=== PATIENT | female | born 1960 | race Hispanic/Latino ===

== ENCOUNTER 2017-07-25 17:18 | Observation (INO) | payer BC, OTHER ==
--- OUTSIDE RECORDS SUMMARY | 2017-07-25 17:20 | XMS REPORT ---
:1960 [facility] Address [address] [place] [address] Dr. [address] [place] [id number] Care Team Providers Name Role Phone JUDIT ESCALONA Unavailable Unavailable Problems This patient has no known problems. Allergies, Adverse Reactions, Alerts This patient has no known allergies or adverse reactions. Medications This patient has no known medications. Results Test Description Test Time Test Comments Text Results Atomic Results Result Comments POCT-HEMOGLOBIN METER 2016-09-27 06:12:00 Test Item Value Reference Range Comments POC-HEMOGLOBIN METER (JEFFERY) (test 8.6 g/dL 12.0-15.0 TESTED AT [facility] [address] [facility] [id number]) [facility] [id number]
--- OUTSIDE RECORDS SUMMARY | 2017-07-25 17:20 | XMS REPORT | Clinical Summary ---
:1960 Author Organization [facility] Address [address] [place] [address] Phone Care Team Providers Name Role Phone Unavailable Primary Care Provider Unavailable Allergies Active Allergy Reactions Severity Noted Date Comments Morphine Shortness Of Breath, High 06/30/2016 Throat closes, tongue Swelling swelling Latex Rash Low 03/28/2017 Current Medications Prescription Sig. Disp. Refills Start Date End Date Status ibuprofen (ADVIL,MOTRIN) Take 100 mg by Active 100 MG tablet mouth every 6 (six) hours as needed for Fever. pantoprazole (PROTONIX) Take 20 mg by mouth Active 20 MG tablet daily. lactulose (CEPHULAC) 10 Take 10 g by mouth Active gram packet 3 (three) times daily. Active Problems Not on file Encounters Date Type Specialty Care Team Description 03/30/2017 Hospital Encounter Gastroenterology Dre Mayer Cirrhosis of liver MD [place] without ascites, unspecified hepatic cirrhosis type (HCC) (Primary Dx) 03/30/2017 Procedure Pass Gastroenterology 03/30/2017 Surgery GastroenterDre Alvares UPPER ENDOSCOPY MD Russell 03/29/2017 Anesthesia Event Gastroenterology Isaias Main MD 03/28/2017 Hospital Encounter Pre-Admission Testing 09/24/2016 Hospital Encounter GastroenterDre Alvares Cirrhosis of liver MD Russell without ascites, unspecified hepatic cirrhosis type (HCC) (Primary Dx) 09/24/2016 Procedure Pass Gastroenterology 09/24/2016 Surgery GastroenterDre Alvares UPPER ENDOSCOPY MD Russell 09/23/2016 Anesthesia Event Gastroenterology Liban Mustafa MD 09/20/2016 Orders Only Dre Mayer Fatty liver MD Russell (Primary Dx);Alcoholic cirrhosis of liver without ascites (HCC) after 07/24/2016 Social History Tobacco Use Types Packs/Day Years Used Date Never Smoker Smokeless Tobacco: Never Used Alcohol Use Drinks/Week oz/Week Comments No Sex Assigned at Date Recorded Not on file Last Filed Vital Signs Vital Sign Reading Time Taken Blood Pressure 115/61 03/30/2017 9:30 AM [facility] Pulse 70 03/30/2017 9:30 AM [facility] Temperature 36.8 C (98.3 F) 03/30/2017 9:00 AM [facility] Respiratory Rate 16 03/30/2017 9:30 AM [employer] Oxygen Saturation 100% 03/30/2017 9:30 AM [employer] Inhaled Oxygen Concentration - - Weight 114.3 kg (252 lb) 03/30/2017 7:20 AM [facility] Height 160 cm (5' 2.99") 03/30/2017 7:20 AM [facility] Body Mass Index 44.65 03/30/2017 7:20 AM [facility] [facility] [facility] Plan of Treatment Not on file Procedures Procedure Name Priority Date/Time Associated Diagnosis Comments UPPER ENDOSCOPY 03/30/2017 8:00 AM [facility] [facility] Extreme obesity UPPER ENDOSCOPY 09/24/2016 2:00 PM CDT Fatty liver after 07/24/2016 Results REPORT OF PROCEDURE - ENDOSCOPY URL (03/30/2017 8:58 AM)Only the most recent of2 resultswithin the time period is included.POC-Hemoglobin meter (09/24/2016 1:37 PM) Component Value Ref Range POC-Hemoglobin Meter 8.6 (L)Comment: TESTED AT [address] 12.0 - 15.0 g/dL [facility] [address] Specimen Performing Laboratory Blood [facility] [address] [address] after 07/24/2016
[2017-07-25] MEDS ORDERED: NA CHLORIDE 0.9% 500 ML ONE (18:05)
[2017-07-25] MEDS ORDERED: DICYCLOMINE HCL 10 MG CAP ONE (18:05)
[2017-07-25 18:33] LABS: Absolute Lymphocytes (CBC) 0.6 K/uL (0.7-4.9); Absolute Monocytes 0.3 K/uL (0.1-1.3); Absolute Neutrophil 1.1 K/uL (1.8-8.0); Basophils % 0.6 % (0-1.3); Lymphocytes % 28.7 % (15.3-44.8); MCH 23.2 pg (27.0-35.0); MPV 8.6 fL (7.6-11.3); Monocytes % 12.6 % (3.3-12.3); RBC Red Blood Cell Count 3.47 M/uL (3.86-4.86)
[2017-07-25 18:46] LABS: Bicarbonate 28 mEq/L (21-31); Glucose Level 100 mg/dL (65-120); Lipase 44 U/L (22-51); Potassium 3.4 mEq/L (3.6-5.0); Sodium Level 141 mEq/L (135-145)
--- NOTE | 2017-07-25 18:51 | RAD REPORT ---
EXAM DESCRIPTION: RAD - Chest Single View - 07/25/2017 6:21 pm CLINICAL HISTORY: Shortness of breath, possible CHF COMPARISON: April 2017 TECHNIQUE: AP portable chest image was obtained 1809 hours . FINDINGS: Lung volumes are low. Shallow inspiration, under penetrated technique and body habitus fal l accentuate heart, vasculature and lung markings. No cardiomegaly seen. Trachea is midline. Central vasculature and lung markings are mildly prominent. This is mostly the artifact of exam limitations. However, a minimal component of failure or volume overload could be masked. No peripheral consolidati on. No measurable pleural effusion and no pneumothorax. No gross bony abnormality seen. No acute aort ic findings suspected. IMPRESSION: Prominent vasculature and prominent central lung markings are believed to be the affects of body habitus, portable technique and shallow inspiration. Minimal failure or volume overload could be masked in this setting.
[2017-07-25 18:52] LABS: ALT/SGPT 45 IU/L (10-60); AST/SGOT 58 IU/L (10-42); Albumin 3.4 g/dL (3.2-5.5); Alkaline Phosphatase 134 IU/L (42-121); BUN Blood Urea Nitrogen 9 mg/dL (6-20); Bilirubin Direct 0.4 mg/dL (0-0.2); Bilirubin Total 1.8 mg/dL (0.3-1.2); Protein, Total 6.4 g/dL (6.0-8.3)
[2017-07-25 19:11] LABS: Urine Blood NEGATIVE (NEG); Urine Glucose NEGATIVE (NEG); Urine Protein TRACE (NEG); Urine pH 7.5 (5.0-7.0)
--- NOTE | 2017-07-25 19:58 | RAD REPORT ---
EXAM DESCRIPTION: CT - Abdomen Pelvis W Contrast - 07/25/2017 7:40 pm CLINICAL HISTORY: Abdominal pain, anemia, rectal bleeding, history of cirrhosis and pancreatitis COMPARISON: CT study October 2016 TECHNIQUE: Biphasic, helical CT imaging of the abdomen and pelvis was performed following 100 ml non -ionic IV contrast. Oral contrast was given. All CT scans are performed using dose optimization technique as appropriate and may include automated exposure control or mA/KV adjustment according to patient size. FINDINGS: No suspicious findings in the lung bases. No pericardial thickening or effusion. Liver shows a nodular capsular contour. This matches the cirrhosis history. No focal liver lesion velasquez ntifiable. Splenomegaly is present similar to prior imaging. No acute splenic finding. No acute pancr eatitis changes. There is no peripancreatic inflammatory stranding. Prominent veins are seen in the s plenic hilum. Cholecystectomy clips are present. No biliary tree dilatation. Symmetric renal function is seen with no hydronephrosis or suspicious renal mass. No pyelonephritis o r acute renal parenchymal process. No gastric dilatation or gastric wall thickening. No acute large or small bowel process identifiable. There is some minimal nonspecific stranding in the posterior lower pelvic fatty tissues and in the r ight lower quadrant. These findings are not substantially different from comparison. No appendicitis findings. No free air, pneumatosis or free fluid. No hernia, mass or bulky lymphadenopathy. The uri nary bladder is without significant finding. No adrenal abnormality. Uterus and ovaries show no suspi cious findings. There is small ovarian cysts that are similar to the comparison. No suspicious bony findings. IMPRESSION: No bowel obstruction, free air or surgically emergent finding. No acute finding to expla in GI bleeding history. Cirrhotic liver changes are present with splenomegaly. No ascites. The above detailed findings are without significant or suspicious change from October 2016.
--- NOTE | 2017-07-25 20:00 | EDPHYS ---
Physician Documentation [facility] Name: Zenaida Goss Age: 57 yrs Sex: Female : 1960 Arrival Date: 07/25/2017 Time: 17:19 Bed 7 Private MD: Madhu Albarado R ED Physician Homero Terrell HPI: 07/25 18:36 This 57 yrs old Female presents to ER via Ambulatory with complaints of Rectal ps1 Bleeding. 18:36 The patient presents to the emergency department with bleeding from the rectum/anus, ps1 that is moderate. Onset: The symptoms/episode began/occurred 5 day(s) ago. Context: the patient patient had small amount of blood per rectum this week then today she said she had a large amount of BRBPR into toilet today. . Associate signs and symptoms: The patient has no apparent associated signs or symptoms. The patient has experienced similar episodes in the past, a few times. The patient has not recently seen a physician. hx of HÉCTOR, Pt of Dr. Mayer in [facility]. Previous polyps and variceal banding.. Historical: - Allergies: 17:23 Morphine (Anaphylaxis); la1 - PMHx: 17:23 Anemia; Cirrhosis; Pancreatitis; varices; la1 - Immunization history:: Adult Immunizations. - Social history:: Smoking status: Patient/guardian denies using tobacco. ROS: 18:36 MS/Extremity: Negative for injury and deformity, Skin: Negative for injury, rash, and ps1 discoloration, Neuro: Negative for headache, weakness, numbness, tingling, and seizure, Psych: Negative for depression, anxiety, suicide ideation, homicidal ideation, and hallucinations. 18:36 Constitutional: Negative for fever, chills, and weight loss, Eyes: Negative for injury, pain, redness, and discharge, Neck: Negative for injury, pain, and swelling, Respiratory: Negative for shortness of breath, cough, wheezing, and pleuritic chest pain. 18:36 Abdomen/GI: Positive for nausea, abdominal cramps. 18:43 Cardiovascular: Positive for edema, Negative for chest pain. ps1 Exam: 18:36 Constitutional: This is a well developed, well nourished patient who is awake, alert, ps1 and in no acute distress. Head/Face: Normocephalic, atraumatic. Eyes: Pupils equal round and reactive to light, extra-ocular motions intact. Lids and lashes normal. Conjunctiva and sclera are non-icteric and not injected. Chest/axilla: Normal chest wall appearance and motion. Nontender with no deformity. No lesions are appreciated. Respiratory: Lungs have equal breath sounds bilaterally, clear to auscultation and percussion. No rales, rhonchi or wheezes noted. No increased work of breathing, no retractions or nasal flaring. Abdomen/GI: Soft, non-tender, with normal bowel sounds. No distension or tympany. No guarding or rebound. No evidence of tenderness throughout. Skin: Warm, dry with normal turgor. Normal color with no rashes, no lesions, and no evidence of cellulitis. MS/ Extremity: Pulses equal, no cyanosis. Neurovascular intact. Full, normal range of motion. Neuro: Awake and alert, GCS 15, oriented to person, place, time, and situation. Cranial nerves II-XII grossly intact. Sensory grossly intact. Psych: Awake, alert, with orientation to person, place and time. Behavior, mood, and affect are within normal limits. 18:43 Cardiovascular: Rate: normal, Rhythm: regular, Pulses: no pulse deficits are ps1 appreciated, Heart sounds: murmur, systolic, grade 2 over 6, Edema: 3+ edema to level of left ankle and right ankle. 19:57 Abdomen/GI: Rectal exam: rectal tone normal, Stool: guaiac positive, hemorrhoid(s), are vicente not appreciated, mass, is not appreciated, swelling, is not appreciated, tenderness, is not appreciated. Vital Signs: 17:23 BP 135 / 70; Pulse 81; Resp 16; Temp 97.6; Pulse Ox 100% on R/A; Weight 113.4 kg; la1 Height 5 ft. 3 in. (160.02 cm); 20:42 BP 126 / 63; Pulse 85; Resp 18; Temp 97.8; Pulse Ox 99% on R/A; Pain 3/10; tl1 17:23 Body Mass Index 44.29 (113.40 kg, 160.02 cm) la1 MDM: 17:55 Patient medically screened. ps1 18:36 Data reviewed: vital signs, nurses notes. ps1 07/25 17:55 Order name: CBC with Manual Differential ps1 07/25 17:55 Order name: Basic Metabolic Panel; Complete Time: 18:54 [facility] 07/25 17:55 Order name: Creatinine for Radiology; Complete Time: 18:54 [facility] 07/25 17:55 Order name: Hepatic Function; Complete Time: 18:54 [facility] 07/25 17:55 Order name: Lipase; Complete Time: 18:54 [facility] 07/25 17:55 Order name: Urine Microscopic Only [facility] 07/25 17:55 Order name: Troponin (emerg Dept Use Only); Complete Time: 18:54 [facility] 07/25 17:55 Order name: Type And Screen [facility] 07/25 19:06 Order name: Urine Dipstick--Ancillary (enter results); Complete Time: 19:29 em1 07/25 19:57 Order name: BNP [facility] 07/25 19:57 Order name: CBC with Diff; Complete Time: 20:47 [facility] 07/25 19:57 Order name: Ckmb; Complete Time: 20:47 [facility] 07/25 19:57 Order name: CPK; Complete Time: 20:47 [facility] 07/25 17:55 Order name: CT Abd/Pelvis - W/Contrast; Complete Time: 20:47 [facility] 07/25 17:55 Order name: CXR XRAY; Complete Time: 18:54 [facility] 07/25 19:57 Order name: Magnesium; Complete Time: 20:47 [facility] 07/25 19:57 Order name: PT-INR [facility] 07/25 19:57 Order name: Ptt, Activated [facility] 07/25 20:09 Order name: Basic Metabolic Panel [facility] 07/25 20:09 Order name: Basic Metabolic Panel [facility] 07/25 20:09 Order name: CBC with Automated Diff [facility] 07/25 20:09 Order name: CBC with Automated Diff [facility] 07/25 20:48 Order name: AMMONIA [facility] 07/25 17:55 Order name: IV Saline Lock; Complete Time: 20:08 [facility] 07/25 17:55 Order name: Labs collected and sent; Complete Time: 20:08 [facility] 07/25 17:55 Order name: Urine Dipstick-Ancillary (obtain specimen); Complete Time: 18:58 [facility] 07/25 17:55 Order name: EKG - Nurse/Tech; Complete Time: 18:50 [facility] 07/25 19:57 Order name: EKG; Complete Time: 19:58 [facility] 07/25 19:57 Order name: Cardiac monitoring; Complete Time: 20:06 [facility] 07/25 19:57 Order name: O2 Per Protocol; Complete Time: 20:06 [facility] 07/25 19:57 Order name: O2 Sat Monitoring; Complete Time: 20:06 [facility] 07/25 20:09 Order name: Clear Liquid [facility] 07/25 20:09 Order name: CONS Physician Consult [facility] 07/25 20:09 Order name: CONS Physician Consult [facility] 07/25 20:48 Order name: Transfuse vicente EC:51 Rate is 64 beats/min. Rhythm is regular. QRS [place] is Normal. OH interval is normal. QRS ps1 interval is normal. QT interval is normal. No Q waves. T waves are Normal. No ST changes noted. Clinical impression: Normal ECG. Interpreted by me. Administered Medications: 18:10 Drug: Bentyl 20 mg Route: PO; sv 18:10 Drug: NS 0.9% 500 ml Route: IV; Rate: bolus; Site: left antecubital; sv 19:12 Follow up: IV Status: Completed infusion tl1 20:21 Drug: Zofran 4 mg Route: IVP; Infused Over: 2 mins; Site: left antecubital; tl1 20:44 Follow up: Response: No adverse reaction; Marked relief of symptoms; Nausea is decreasedtl1 20:22 Drug: Rocephin - (cefTRIAXone) 1 grams Route: IVPB; Infused Over: 30 mins; Site: left tl1 antecubital; 20:44 Follow up: IV Status: Completed infusion tl1 20:22 Drug: Flagyl 500 mg Volume: 100 ml; Route: IVPB; Rate: 200 ml/hr; Infused Over: 30 tl1 mins; Site: left antecubital; 20:23 Drug: ProTONIX 40 mg Route: IVP; Infused Over: 2 mins; Site: left antecubital; tl1 Disposition: 07/25/17 20:00 Hospitalization ordered by Madhu Albarado for Observation. Preliminary diagnosis are Encounter for screening for lower gastrointestinal disorder, Gastrointestinal hemorrhage, unspecified, Unspecified cirrhosis of liver - ANAYA, Anemia, unspecified, Obesity, unspecified, Hypokalemia. - Bed requested for Telemetry/MedSurg (observation). - Status is Observation. aj - Condition is Stable. - Problem is new. - Symptoms have improved. UTI on Admission? No Signatures: Dispatcher [employer] [facility] StephanyKatherine, RN Kenyatta Fragoso, RN Rere Franz, RN Homero Meraz MD MD cha Attema, Lee, Ann Bearden RN, RN RN tl1 Florian Jewell MD MD ps1 Corrections: (The following items were deleted from the chart) 18:02 18:00 CBC+H.LAB.BRZ ordered. EDPA EDPA 18:44 18:36 Constitutional: Negative for fever, chills, and weight loss, Eyes: Negative for ps1 injury, pain, redness, and discharge, Neck: Negative for injury, pain, and swelling, Cardiovascular: Negative for chest pain, palpitations, and edema, Respiratory: Negative for shortness of breath, cough, wheezing, and pleuritic chest pain, ps1 18:45 18:36 Constitutional: This is a well developed, well nourished patient who is awake, ps1 alert, and in no acute distress. Head/Face: Normocephalic, atraumatic. Eyes: Pupils equal round and reactive to light, extra-ocular motions intact. Lids and lashes normal. Conjunctiva and sclera are non-icteric and not injected. Chest/axilla: Normal chest wall appearance and motion. Nontender with no deformity. No lesions are appreciated. Cardiovascular: Regular rate and rhythm. No gallops, murmurs, or rubs. Normal PMI, no JVD. No pulse deficits. Respiratory: Lungs have equal breath sounds bilaterally, clear to auscultation and percussion. No rales, rhonchi or wheezes noted. No increased work of breathing, no retractions or nasal flaring. Abdomen/GI: Soft, non-tender, with normal bowel sounds. No distension or tympany. No guarding or rebound. No evidence of tenderness throughout. Skin: Warm, dry with normal turgor. Normal color with no rashes, no lesions, and no evidence of cellulitis. MS/ Extremity: Pulses equal, no cyanosis. Neurovascular intact. Full, normal range of motion. Neuro: Awake and alert, GCS 15, oriented to person, place, time, and situation. Cranial nerves II-XII grossly intact. Sensory grossly intact. Psych: Awake, alert, with orientation to person, place and time. Behavior, mood, and affect are within normal limits. ps1
--- NOTE | 2017-07-25 20:00 | ER ---
Nurse's Notes [facility] Name: Zenaida Goss Age: 57 yrs Sex: Female : 1960 Arrival Date: 07/25/2017 Time: 17:19 Bed 7 Private MD: Madhu Albarado R Diagnosis: Encounter for screening for lower gastrointestinal disorder;Gastrointestinal hemorrhage, unspecified;Unspecified cirrhosis of liver-ANAYA;Anemia, unspecified;Obesity, unspecified;Hypokalemia Presentation: 07/25 17:22 Presenting complaint: Patient states: For the last week I have had some bright red la1 blood in my stool but today I had a lot of blood in the toilet and I have anemia so I want to be sure Im not losing too much. Transition of care: patient was not received from another setting of care. Onset of symptoms was July 25, 2017. Initial Sepsis Screen: Does the patient meet any 2 criteria? No. Patient's initial sepsis screen is negative. Does the patient have a suspected source of infection? No. Patient initial sepsis screen negative. Care prior to arrival: None. 17:22 Method Of Arrival: Ambulatory la1 17:22 Acuity: TANK 3 la1 Historical: - Allergies: 17:23 Morphine (Anaphylaxis); la1 - PMHx: 17:23 Anemia; Cirrhosis; Pancreatitis; varices; la1 - Immunization history:: Adult Immunizations. - Social history:: Smoking status: Patient/guardian denies using tobacco. Screenin:00 Abuse screen: Denies threats or abuse. Denies injuries from another. Nutritional sv screening: No deficits noted. Tuberculosis screening: No symptoms or risk factors identified. Fall Risk None identified. Assessment: 18:00 General: Appears in no apparent distress. comfortable, obese, Behavior is calm, sv cooperative, appropriate for age. Pain: Complains of pain in abdomen Pain currently is 5 out of 10 on a pain scale. Quality of pain is described as crampy, Is intermittent. Neuro: Level of Consciousness is awake, alert, obeys commands, Oriented to person, place, time, situation, Moves all extremities. Full function Gait is steady. Respiratory: Respiratory effort is even, unlabored, Respiratory pattern is regular, symmetrical. GI: Abdomen is obese, Reports cramping, rectal bleeding, nausea. Derm: Skin is normal. Vital Signs: 17:23 BP 135 / 70; Pulse 81; Resp 16; Temp 97.6; Pulse Ox 100% on R/A; Weight 113.4 kg; la1 Height 5 ft. 3 in. (160.02 cm); 20:42 BP 126 / 63; Pulse 85; Resp 18; Temp 97.8; Pulse Ox 99% on R/A; Pain 3/10; tl1 17:23 Body Mass Index 44.29 (113.40 kg, 160.02 cm) la1 ED Course: 17:19 Patient arrived in ED. as 17:19 Madhu Albarado MD is Private Physician. as 17:23 Triage completed. la1 17:24 Arm band placed on right wrist. la1 17:44 Florian Jewell MD is Attending Physician. ps1 17:46 Chai Pierre RN is Primary Nurse. sg 18:00 Patient has correct armband on for positive identification. Placed in gown. Bed in low sv position. Call light in reach. Pulse ox on. NIBP on. 18:00 Initial lab(s) drawn, by me, sent to lab. Inserted saline lock: 20 gauge in left sv antecubital area, using aseptic technique. Blood collected. Flushed left antecubital with 5 ml normal saline. 18:02 Katherine Hammond RN is Primary Nurse. sv 18:20 CXR XRAY In Process Unspecified. EDMS 18:58 Urine collected: clean catch specimen, cloudy, steffen colored, EKG done, by ED staff, jb1 reviewed by Florian Jewell MD. 19:09 Attending Physician role handed off by Florian Jewell MD vicente 19:09 Homero Terrell MD is Attending Physician. vicente 19:11 Report given to Ann REYES. sv 19:17 Primary Nurse role handed off by Katherine Hammond RN sv 19:[address] via wheelchair. ka 19:40 CT Abd/Pelvis - W/Contrast In Process Unspecified. EDMS 19:40 CT completed. Patient tolerated procedure well. Patient moved back from CT. ka 19:58 Madhu Albarado MD is Hospitalizing Provider. vicente 20:14 Steffen Millan RN is Primary Nurse. ak1 21:11 Report given to Katherine REYES. aj 21:12 No provider procedures requiring assistance completed. Patient admitted, IV remains in aj place. intact. Administered Medications: 18:10 Drug: Bentyl 20 mg Route: PO; sv 18:10 Drug: NS 0.9% 500 ml Route: IV; Rate: bolus; Site: left antecubital; sv 19:12 Follow up: IV Status: Completed infusion tl1 20:21 Drug: Zofran 4 mg Route: IVP; Infused Over: 2 mins; Site: left antecubital; tl1 20:44 Follow up: Response: No adverse reaction; Marked relief of symptoms; Nausea is decreasedtl1 20:22 Drug: Rocephin - (cefTRIAXone) 1 grams Route: IVPB; Infused Over: 30 mins; Site: left tl1 antecubital; 20:44 Follow up: IV Status: Completed infusion tl1 20:22 Drug: Flagyl 500 mg Volume: 100 ml; Route: IVPB; Rate: 200 ml/hr; Infused Over: 30 tl1 mins; Site: left antecubital; 20:23 Drug: ProTONIX 40 mg Route: IVP; Infused Over: 2 mins; Site: left antecubital; tl1 Outcome: 20:00 Decision to Hospitalize by Provider. vicente 21:12 Admitted to Med/surg accompanied by tech, via wheelchair, room 204, Report called to trinity Murphy RN 21:12 Condition: good 21:12 Instructed on the need for admit, Demonstrated understanding of instructions. 21:21 Patient left the ED. trinity Signatures: Dispatcher [employer] EDDaniel Langston jb1 Katherine Hammond RN RN sv Gay, Steven, RN RN sg Myers, Amanda, RN RN aj Anderson, Corey, MD MD cha Martinez, Amelia as Attema, Lee RN RN nora1 Ann Carrasco RN RN tl1 Steffen Millan RN RN kevin1 Liana Whiting Phillip, MD MD ps1
[2017-07-25] MEDS ORDERED: ACETAMINOPHEN 500 MG TAB PO PRN (20:06)
[2017-07-25] MEDS ORDERED: CEFTRIAXONE/SWI 1gm 1 GM/10 ML SYR ONE (20:15)
[2017-07-25] MEDS ORDERED: PANTOPRAZOLE 40 MG INJ ONE (20:15)
[2017-07-25] MEDS ORDERED: ONDANSETRON 4 MG/2 ML VIAL ONE (20:15)
[2017-07-25] MEDS ORDERED: METRONIDAZOLE 500mg IVPB 500 MG/100 ML BAG IV ONE (20:15)
[2017-07-25 20:26] LABS: Absolute Lymphocytes (CBC) 0.6 K/uL (0.7-4.9); Absolute Monocytes 0.2 K/uL (0.1-1.3); Absolute Neutrophil 1.1 K/uL (1.8-8.0); Basophils % 0.7 % (0-1.3); Eosinophils % 3.2 % (0-4.4); Hematocrit 25.5 % (36.0-45.0); Lymphocytes % 28.8 % (15.3-44.8); MCH 23.1 pg (27.0-35.0); MCV 74.3 fL (80-100); MPV 8.5 fL (7.6-11.3); Monocytes % 12.1 % (3.3-12.3); RBC Red Blood Cell Count 3.43 M/uL (3.86-4.86)
[2017-07-25 20:34] LABS: Magnesium 1.8 mg/dL (1.8-2.5)
[2017-07-25 20:41] LABS: CKMB Creatine Kinase MB 4.7 ng/ml (0.3-4.0)
[2017-07-25] MEDS ORDERED: CEFTRIAXONE 1 GM/NS 50 ML 1 GM/50 ML BAG IV SCH (21:00)
[2017-07-25 21:19] LABS: Anisocytosis 1+; Blood Morphology Comment NOTED (NOT SEEN); Hypochromasia 1+; Platelet Estimate DECR; Polychromasia 1+
[2017-07-25 21:36] VITALS: BMI 45.6
[2017-07-25 21:41] LABS: Protime INR 1.28
[2017-07-25] MEDS ORDERED: NA CHLORIDE 0.9% 250 ML ONE (22:10)
[2017-07-25] MEDS: FENTANYL CITR 100 MCG/2 ML IV PRN (22:33)
[2017-07-25] MEDS: NA CHLORIDE 0.9% 1,000 ML IV SCH (22:33)
[2017-07-25] MEDS ORDERED: DIPHENHYDRAMINE 50 MG/ML VIAL IV ONE (22:39)
[2017-07-25] MEDS ORDERED: DIPHENHYDRAMINE 50 MG/ML VIAL ONE (22:41)
[2017-07-25] MEDS ORDERED: ACETAMINOPHEN 325 MG TABLET PO ONE (22:42)
[2017-07-26] MEDS: METRONIDAZOLE 500mg IVPB 500 MG/100 ML BAG IV SCH ×5 (00:55→23:43)
[2017-07-26] MEDS: NA CHLORIDE 0.9% 1,000 ML IV SCH (05:11)
[2017-07-26 05:46] LABS: Absolute Lymphocytes (CBC) 0.5 K/uL (0.7-4.9); Absolute Monocytes 0.2 K/uL (0.1-1.3); Absolute Neutrophil 0.9 K/uL (1.8-8.0); Basophils % 0.7 % (0-1.3); Eosinophils % 4.6 % (0-4.4); Hematocrit 26.2 % (36.0-45.0); MCH 22.8 pg (27.0-35.0); MCV 76.4 fL (80-100); MPV 8.5 fL (7.6-11.3); Monocytes % 13.7 % (3.3-12.3); RBC Red Blood Cell Count 3.43 M/uL (3.86-4.86)
[2017-07-26 05:48] LABS: BUN Blood Urea Nitrogen 8 mg/dL (6-20); Bicarbonate 23 mEq/L (21-31); Glucose Level 94 mg/dL (65-120); Potassium 3.6 mEq/L (3.6-5.0); Sodium Level 135 mEq/L (135-145)
[2017-07-26] MEDS ORDERED: POTASSIUM 25 MEQ EFFERV TAB PO ONE (06:41)
--- NOTE | 2017-07-26 08:28 | EKG ---
Test Date: 2017-07-25 Test Time: 18:51:19 Mobile Equipment Operator: EVANGELINA MEASUREMENT RESULTS: Intervals: Rate: 64 ID: [id number] QRSD: 100 QT: 452 QTc: 466 Lula: P: 19 ID: [id number] QRS: 52 T: 41 INTERPRETIVE STATEMENTS: Normal sinus rhythm Normal ECG Compared to ECG 12/18/2016 18:31:16 Prolonged QT interval no longer present Electronically Signed On 07-26-17 08:25:46 CDT by Miguel Crenshaw
[2017-07-26] MEDS: FENTANYL CITR 100 MCG/2 ML IV PRN ×3 (09:38→21:46)
[2017-07-26] MEDS: LACTULOSE 20 GM/30 ML UCUP PO SCH (09:39)
[2017-07-26] MEDS: ONDANSETRON 4 MG/2 ML VIAL IV PRN (09:40)
[2017-07-26] MEDS: CEFTRIAXONE/SWI 1gm 1 GM/10 ML SYR IV SCH ×3 (09:40→21:46)
[2017-07-26] MEDS ORDERED: NA CHLORIDE 0.9% 250 ML ONE (09:50)
[2017-07-26] MEDS ORDERED: FUROSEMIDE 20 MG/ 2ML VIAL IV ONE (10:33)
[2017-07-26] MEDS: HYDROCODONE/APAP 5/325 MG TAB PO PRN ×2 (13:46→23:43)
--- NOTE | 2017-07-26 15:49 | RAD REPORT ---
EXAM DESCRIPTION: NM - GI Blood Loss Imaging - 07/26/2017 3:41 pm CLINICAL HISTORY: Anemia. COMPARISON: None. FINDINGS: 27.5 millicuries tagged red blood cells were administered to the patient. Dynamic imaging of the abdomen and pelvis was then performed. No evidence of active GI bleeding durin g the duration of the study. IMPRESSION: Negative for active GI bleeding during the duration of the examination.
[2017-07-26 16:46] LABS: Hematocrit 37.9 % (36.0-45.0)
[2017-07-26] MEDS: TBO-FILGRASTIM 480 MCG/0.8 ML SYR SQ SCH (17:38)
[2017-07-26 18:09] LABS: RBC Red Blood Cell Count 3.84 M/uL (3.86-4.86)
[2017-07-26 18:58] LABS: Ferritin 9.6 ng/ml (11.0-306.8); Folic Acid, (Folate) 20.5 ng/ml (>5.21)
--- NOTE | 2017-07-26 22:03 | CON ---
Additional Consulting Physician: Hamzah Reynolds M.D. Reason For Consultation: Pancytopenia. History Of Present Illness: Ms. Goss is a 57-year-old lady with a well-known history of cirrhosis of the liver and pancytopenia as a result of hypersplenism, who was hospitalized through the emergency room yesterday. She presented to the ER with a 24-hour history of neal red blood per rectum. She denies any melena or hematemesis. When she presented to the emergency room, her hemoglobin was 8.1 g/dL, which is lower than her usual baseline and hence she was hospitalized for further evaluation and treatment and transfusion. A CT scan of the abdomen and pelvis done in the emergency room revealed no acute findings. She continues to have liver cirrhosis with splenomegaly. Ms. Goss was followed by my partner, Dr. Thomas until 2012. She was noted to have a pancytopenia by him and a bone marrow biopsy was done which revealed no evidence of acute marrow abnormality or leukemia. Further evaluation revealed that she had cirrhosis of the liver with splenomegaly, which was the likely cause for her pancytopenia. Since then, she has been evaluated and treated by Dr. Mayer at the [facility]. She says she has been diagnosed with esophageal varices, duodenal polyps, and has had banding and/or therapy for those every 3-6 months. She has also had a colonoscopy in the past , which showed no malignancy. She says she is followed by GI locally and Dr. Mayer closely and says that her liver disease is not bad enough to be on a transplant list yet. She denies any recent fever. She complains of severe fatigue and intolerance to cold, she says she was told to see a bridge crane operator for intravenous iron, but never got around to following up with us. There is no history of recurrent infections or serious/major infections though she was admitted for acute bronchitis and exacerbation of her asthma in April of 2017. She denies any history of bleeding from the mouth, nose, gums or IV sites. There is no significant change in her weight or appetite. Review of Systems: Otherwise unremarkable. Past Medical History: Significant for: 1. Right breast cancer in the remote past more than 22 years ago. 2. Cirrhosis of the liver secondary to fatty liver. 3. Splenomegaly. 4. Pancytopenia due to hypersplenism. 5. Obesity. Past Surgery History: Significant for an open cholecystectomy. Medications: Regular medications at home consist of only sucralfate 1 g q.i.d. Allergies: SHE IS ALLERGIC TO MORPHINE AND MEPERIDINE. Social And Family History: Ms. Goss is . There is no family history of liver cirrhosis or cancer. She is a nonsmoker and does not drink alcohol. Physical Examination: Vital Signs: Reveal that she has been afebrile. Temperature is 98.6, pulse 70 , blood pressure 133/55, respiratory rate was 18, saturating at 97%-98% on room air. General: Reveals an obese lady in no acute distress. There is pallor. No cyanosis, clubbing, or icterus was noted. HEENT: Examination reveals no mucosal bleeding. Lymph Node: Survey reveals no palpable lymphadenopathy in the neck, axilla, or groin. Chest: Clear to auscultation with no rales or rhonchi heard. Heart: Sounds reveal normal S1, S2. No gallops or murmurs. Abdomen: Obese. There is no palpable liver or spleen. Bowel sounds were present. Neurologic: She is alert and oriented with no acute deficits. Extremities: Show 1+ bipedal edema. Lab Data: CBC this morning revealed a white count of 1700 with an absolute neutrophil count of 900, hemoglobin was 7.8, hematocrit was 26.2 with decreased MCV, MCH, and MCHC. Platelet count was 51,000. PT was mildly prolonged at 15.2 , INR 1.28, PTT was normal at 29.4. Chemistries on admission revealed a slightly decreased potassium of 3.4. BUN and creatinine were normal. Her total bilirubin was 1.8 with a direct bilirubin of 0.4. AST was mildly elevated at 58, as was the alkaline phosphatase of 134. Albumin was mildly decreased at 3.4. Assessment And Plan: Ms. Goss presents with a pancytopenia which has been worked up in 2013 and is secondary to hypersplenism from cirrhosis of the liver. Review of her blood counts reveals that her blood counts have been fairly stable in the past 5 years. There is no need for routine cytokine therapy or transfusions. I am told GI intervention is planned, hence it would be appropriate to give her a short course of Neupogen (G-CSF) to get her absolute neutrophil count over 1000. As far as the anemia is concerned, this is most likely iron deficiency anemia due to chronic GI blood loss. We will check her iron profile and replace IV iron as indicated. We also discussed that if there is evidence of acute bleeding, she should receive platelet transfusions to maintain a platelet count of 50,000 or more. She will see us through the clinic 1 week following discharge. SHARRON/DWAYNE Voice ID: [id number] Report ID: [id number] [place]
--- NOTE | 2017-07-26 22:33 | CON ---
Date of Consultation: 07/26/2017 Reason For Consultation: Hematochezia with pancytopenia. History Of Present Illness: The patient is a 57-year-old female with history of cirrhosis o f the liver, ANAYA, gastric adenomatous polyps, family history of gastric cancers. The patient was ad mitted to the hospital due to hematochezia and pancytopenia. The patient's hemoglobin is noted to be low at approximately 9, has decreased to 7.8 since in the hospital. Platelets are low chronically a t 52, with history of cirrhosis and also she has a low white cell count going from approximately 2 do wn to 1.8 down to 1.7 with an ANC, absolute neutrophil count of 0.9. Of note, she had a negative bon e marrow biopsy in the past by Dr. Thomas. She has had multiple admissions for recurrent hematochezi a. She has had multiple colonoscopies, other procedures for this, as per chart review. Past Medical History: Significant for: 1.Cirrhosis of the liver thought secondary to fatty liver disease. 2.Nonalcoholic steatohepatitis. 3.History of pancytopenia, recurrent with negative bone marrow biopsy seen by Dr. Thomas of [facility] in the past, breast cancer status post therapy. 4.Gastric adenomatous polyps with dysplasia, status post banding in [place], recurrent repeated EGDs for removal of these gastric polyps and also a family History of gastric cancer in sister. Family History: Significant for sister with advanced gastric polyps, gastric cancer treated in [place], [place]. Sister at age 51 from gastric cancer. Social History: She is , with children. One daughter lives at home with her. No tobacco. N o alcohol. She works in [place] in a [employer] company. Allergies: SHE HAS ALLERGY TO MORPHINE AND DEMEROL. Current Medications: Tylenol Extra Strength, Strong, Rocephin, fentanyl, Granix, Cephulac, Flagyl, Zo eliceo. Review of Systems: The patient has hematochezia, lethargy, fatigue, obesity. She denies any chest pain, shortness of br eath, seizure, syncope, lower extremity edema, paresthesias, muscle aches, joint aches, backaches, mu scle aches, melena, hematemesis, coffee-grounds emesis, hemoptysis, hematuria, dysuria, polyuria, manuel ydipsia. Physical Examination: Vital Signs: She is 5 feet 3 inches, 257 pounds, BMI of 45.6 kg/m2. Temperature 98.6 degrees Fahren heit, pulse 70, respirations 18, blood pressure 133/55, O2 saturation 97%. General: She is an obese female, lying in bed, in no acute distress. HEENT: Normocephalic, atraumatic. Anicteric. Pupils equal, round, and reactive to light. Extraocu lar movements are intact. Oropharynx clear. Neck: Supple. No masses. Respirations: Clear to auscultation bilaterally. Cardiac: Regular rhythm. Gastrointestinal: Positive bowel sounds. Soft. Nondistended. Some tenderness in the right upper q uadrant and epigastric area. No peritoneal or Manriquez sign. No rebound. Extremities: No clubbing, cyanosis. Some mild lower extremity edema. Neuro: Alert and oriented x3. Able to move all extremities. Sensation intact to light touch. Laboratory Data: The patient has a white count 1.7 down from 2.0 yesterday to 1.9 down to 1.7 today with absolute neutrophil count of 0.9, hemoglobin 7.8 down from 8.1 yesterday, hematocrit 26.2, MCV o f 76, platelet count of 51. PT of 15.2, INR of 1.3, PTT of 29.4. Sodium 135, potassium 3.6, chlorid e 110, bicarb 23, BUN of 8, creatinine of 0.54, glucose 94, calcium 8.5, magnesium 1.8, iron indices pending. Ammonia 51. Creatine kinase 262, CK-MB of 4.7, troponin I less than 0.03. B titer peptide of 43. UA was trace protein, otherwise negative. Imaging: CT abdomen and pelvis; cirrhosis of the liver with splenomegaly. No ascites. Otherwise ne gative. Chest x-ray showed prominent vascular prominence central lung markings believed to be the ef fects of body habitus, portable technique, shallow inspiration, minimal volume overload could be mass in this setting. Impression: 1.Hematochezia, none now. She has a hemoglobin that is low at 7.8 with a PT elevated at 15.2, INR o f 1.3, PTT 29.4. She has had recurrent hematochezia in the past with prior colonoscopy needed to rev iew prior colonoscopy and EGD reports. 2.Pancytopenia. History of bone marrow biopsy in the past with Dr. Thomas. Of concern, now as her white count has dropped from 2-1.7 with an absolute neutrophil count of 0.9, hemoglobin of 7.8, and p latelets of 51. She is supposed to have followed up with Hematology. She knows, but has not been ab le to due to her busy work schedule. 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 Recommendations: 1.Agree with isolation with neutropenic precautions. 2.No colonoscopy now with ANC of 0.9 and neutropenia. 3.Proceed with tagged RBC bleeding scan. 4.Agree with transfusion 2 units packed RBCs. 5.Hematology consult. 6.Serial H and H and transfuse p.r.n. 7.Review prior EGD and colonoscopy reports. Addendum: Tagged RBC scan was negative. WS/MODL Voice ID: [id number] Report ID: [id number]
[2017-07-27 01:24] LABS: Urine Bacteria 20-50 /HPF (<20); Urine Culture Reflex Order REFLEXED; Urine RBC <5 /HPF (NONE SEEN)
[2017-07-27 02:23] VITALS: O2SAT 97
--- NOTE | 2017-07-27 02:31 | HP ---
Date of Admission: 07/25/2017 Chief Complaint: Rectal bleeding. History Of Present Illness: A 57-year-old female who has history of cirrhosis, thrombocytopenia, ane daniel, was brought to the emergency room because of significant amount of rectal bleeding. The patient had evaluation done. Her hemoglobin was 8.1. The patient is admitted for observation. There is no history of abdominal pain, vomiting of blood. Past Medical History: Positive for asthma, cirrhosis, history of breast cancer, gastric polyps, thro mbocytopenia from cirrhosis, splenomegaly from cirrhosis, leukopenia from cirrhosis. Family History: Noncontributory. Personal History: She is allergic to is Demerol and morphine. Review of Systems: No history of chest pain or shortness of breath. Physical Examination: General: Revealed a 57-year-old female, pale looking. HEENT: Otherwise negative. Neck: Supple. JVD negative. Chest: Occasional wheezes. Heart: Regular. Abdomen: Soft, nontender. Extremities: No edema. Laboratory Data: White count 2.0, hemoglobin 8.1, platelet count 56, monocytes 12.6. CAT scan of th e abdomen; no acute findings other than splenomegaly. Assessment: 1.Gastrointestinal bleeding. 2.Known cirrhosis of the liver. 3.Known gastric polyps. 4.Known anemia, thrombocytopenia, and leukopenia related to cirrhosis and splenomegaly. 5.History of asthma. 6.History of breast cancer in the past. Plan: Blood transfusion. GI consultation has done. NOVA/DWAYNE Voice ID: [id number]
[2017-07-27] MEDS: METRONIDAZOLE 500mg IVPB 500 MG/100 ML BAG IV SCH ×2 (05:07→11:22)
[2017-07-27] MEDS: ONDANSETRON 4 MG/2 ML VIAL IV PRN (05:16)
[2017-07-27] MEDS: HYDROCODONE/APAP 5/325 MG TAB PO PRN (05:51)
[2017-07-27 06:04] LABS: BUN Blood Urea Nitrogen 10 mg/dL (6-20); Bicarbonate 28 mEq/L (21-31); Glucose Level 96 mg/dL (65-120); Potassium 3.6 mEq/L (3.6-5.0); Sodium Level 139 mEq/L (135-145)
--- NOTE | 2017-07-27 07:01 | PN ---
The patient's hemoglobin is 12 g and she does not have active bleeding. The patient is already seen by Hematology Service and GI Service. No procedure planned. Iron transfusion may not be required as her iron levels are normal. The patient's B12 level however is low. She might benefit from B12 inj ections. The patient might be discharged today. NOVA/DWAYNE Voice ID: [id number] Report ID: [id number]
[2017-07-27] MEDS: CEFTRIAXONE/SWI 1gm 1 GM/10 ML SYR IV SCH ×2 (09:00→09:46)
[2017-07-27] MEDS: TBO-FILGRASTIM 480 MCG/0.8 ML SYR SQ SCH (09:46)
[2017-07-27] MEDS: LACTULOSE 20 GM/30 ML UCUP PO SCH (09:46)
[2017-07-27 15:31] VITALS: BP 119/58; TEMP 100.2
== END 2017-07-27 12:58 | disposition home or self-care (01) ==
LOC: ER 17:18 → ERHOLD 20:04 → 2ND 21:12
PROVIDERS: ADMIT Internal Medicine; ATTEND Internal Medicine
PROC: 30233N1 Transfusion of Nonautologous Red Blood Cells into Peripheral Vein, Percutaneous Approach (ICD-10-PCS; principal; 2017-07-25)
DX: K92.1 Melena (principal); K74.60 Unspecified cirrhosis of liver; D69.6 Thrombocytopenia, unspecified; D64.9 Anemia, unspecified; D61.818 Other pancytopenia; K75.89 Other specified inflammatory liver diseases; E66.9 Obesity, unspecified; Z68.42 Body mass index [BMI] 45.0-49.9, adult; Z85.3 Personal history of malignant neoplasm of breast
CPT/HCPCS: 36415; 71045; 74177; 78278; 80048; 80076; 81003; 81015; 82140; 82550; 82553; 82607; 82728; 82746; 83540; 83690; 83735; 83880; 84466; 84484; 85014; 85018; 85025; 85044; 85610; 85730; 86850; 86900; 86901; 87077; 87086; 87088; 87186; 93005; 96361; 96365; 96375; 99285; A9560; C9113; G0378; J0696; J1446; J1940; J2405; J3010; J7030; P9016; Q9967

== ENCOUNTER 2017-07-27 19:52 | Emergency (ER) | payer BC, OTHER ==
--- OUTSIDE RECORDS SUMMARY | 2017-07-27 19:54 | XMS REPORT ---
:1960 [facility] Address [address] [place] [address] Dr. Clay [address] [place] [id number] Care Team Providers Name Role Phone JUDIT [...] (JEFFERY) (test 8.6 g/dL 12.0-15.[address] [facility] [address] [facility] nilc=[phone]) [facility] [id number]
--- OUTSIDE RECORDS SUMMARY | 2017-07-27 19:54 | XMS REPORT | Clinical Summary ---
:1960 Author Organization [facility] Address [address] [place] [address] Phone Care Team Providers Name Role Phone [...] Gastroenterology Dre Mayer Cirrhosis of liver MD Russell without ascites, [...] cirrhosis of liver without ascites (HCC) after 07/26/2016 Social History Tobacco Use Types Packs/Day Years Used Date Never Smoker Smokeless Tobacco: Never Used Alcohol Use Drinks/Week oz/Week Comments No Sex Assigned at Date Recorded Not on file Last Filed Vital Signs Vital Sign Reading Time Taken Blood Pressure 115/61 03/30/2017 9:30 AM CAFE SITE ATTENDANT Pulse 70 03/30/2017 9:30 AM CAFE SITE ATTENDANT Temperature 36.8 C (98.3 F) 03/30/2017 9:00 AM CAFE SITE ATTENDANT Respiratory Rate 16 03/30/2017 9:30 AM CAFE SITE ATTENDANT Oxygen Saturation 100% 03/30/2017 9:30 AM CAFE SITE ATTENDANT Inhaled Oxygen Concentration - - Weight 114.3 kg (252 lb) 03/30/2017 7:20 AM CAFE SITE ATTENDANT Height 160 cm (5' 2.99") 03/30/2017 7:20 AM CAFE SITE ATTENDANT Body Mass Index 44.65 03/30/2017 7:20 AM CAFE SITE ATTENDANT Plan of Treatment Not on file Procedures Procedure Name Priority Date/Time Associated Diagnosis Comments UPPER ENDOSCOPY 03/30/2017 8:00 AM CAFE SITE ATTENDANT Extreme obesity UPPER ENDOSCOPY 09/24/2016 2:00 PM CDT Fatty liver after 07/26/2016 Results REPORT OF PROCEDURE - ENDOSCOPY URL (03/30/2017 8:58 AM)Only the most recent of2 resultswithin the time period is included.POC-Hemoglobin meter (09/24/2016 1:37 PM) Component Value Ref Range POC-Hemoglobin Meter 8.6 (L)Comment: TESTED AT [address] 12.0 - 15.0 g/dL [facility] [id number] Specimen Performing Laboratory Blood [facility] [address] [address] after 07/26/2016
[2017-07-27 23:39] LABS: Protime INR 1.41
[2017-07-27] MEDS ORDERED: NA CHLORIDE 0.9% 0 ML ONE (23:39)
[2017-07-27] MEDS ORDERED: NA CHLORIDE 0.9% 1,000 ML ONE (23:39)
[2017-07-27] MEDS ORDERED: CEFEPIME 2 GM VIAL ONE (23:39)
[2017-07-27] MEDS ORDERED: NA CHLORIDE 0.9% 100 ML IV ONE (23:43)
[2017-07-27 23:50] LABS: Bicarbonate 26 mEq/L (21-31); Glucose Level 96 mg/dL (65-120); Lipase 32 U/L (22-51); Potassium 3.8 mEq/L (3.6-5.0); Sodium Level 134 mEq/L (135-145)
[2017-07-27 23:56] LABS: ALT/SGPT 37 IU/L (10-60); AST/SGOT 42 IU/L (10-42); Albumin 3.2 g/dL (3.2-5.5); Alkaline Phosphatase 130 IU/L (42-121); BUN Blood Urea Nitrogen 10 mg/dL (6-20); Bilirubin Direct 0.5 mg/dL (0-0.2); Protein, Total 6.2 g/dL (6.0-8.3)
[2017-07-28 00:03] LABS: Absolute Lymphocytes (CBC) 1.1 K/uL (0.7-4.9); Absolute Monocytes 0.7 K/uL (0.1-1.3); Absolute Neutrophil 9.4 K/uL (1.8-8.0); Basophils % 0.3 % (0-1.3); Eosinophils % 0.9 % (0-4.4); Hematocrit 29.4 % (36.0-45.0); Lymphocytes % 9.7 % (15.3-44.8); MCH 24.2 pg (27.0-35.0); MPV 8.6 fL (7.6-11.3); Monocytes % 6.1 % (3.3-12.3); RBC Red Blood Cell Count 3.81 M/uL (3.86-4.86)
[2017-07-28] MEDS ORDERED: ACETAMINOPHEN 325 MG TABLET ONE (00:09)
[2017-07-28 00:36] LABS: Platelet Estimate DECR; Urine White Blood Cell Casts OK
[2017-07-28 00:37] LABS: Blood Morphology Comment NOT SEEN (NOT SEEN)
[2017-07-28 01:21] LABS: Urine Blood NEGATIVE (NEG); Urine Glucose NEGATIVE (NEG); Urine Protein 1+ (NEG); Urine Specific Gravity >1.030 (1.005-1.030)
[2017-07-28 05:16] LABS: Hematocrit 28.3 % (36.0-45.0); MCH 24.4 pg (27.0-35.0); MCV 77.6 fL (80-100); MPV 8.5 fL (7.6-11.3); RBC Red Blood Cell Count 3.65 M/uL (3.86-4.86)
--- NOTE | 2017-07-28 05:34 | ER ---
Nurse's Notes [facility] Name: Zenaida Goss Age: 57 yrs Sex: Female : 1960 Arrival Date: 07/27/2017 Time: 19:53 Bed 14 Private MD: Madhu Albarado R Diagnosis: Fever, unspecified;Anemia in chronic diseases classified elsewhere Presentation: 07/27 21:04 Presenting complaint: Patient states: she was discharged from this hospital today with bb low-grade fever after having a blood transfusion for GI bleed she called her PCP Dr Albarado who told her to come to ED. Pt also c/o abdominal pain denies vomiting. Transition of care: patient was not received from another setting of care. Onset of symptoms was July 27, 2017. Initial Sepsis Screen: Does the patient meet any 2 criteria? No. Patient's initial sepsis screen is negative. Does the patient have a suspected source of infection?. Care prior to arrival: None. 21:04 Method Of Arrival: Ambulatory bb 21:04 Acuity: TANK 2 bb Historical: - Allergies: 21:07 Morphine (Anaphylaxis); bb - Home Meds: 21:07 b12 injections [Active]; Lactulose Oral as needed [Active]; bb - PMHx: 21:07 Anemia; Cirrhosis; Pancreatitis; varices; bb - PSHx: 21:07 R lumpectomy; Appendectomy; Cholecystectomy; Tubal ligation; Tonsillectomy; bb - Immunization history:: Adult Immunizations up to date. - Social history:: Smoking status: Patient/guardian denies using tobacco, Patient/guardian denies using alcohol, street drugs. Screenin:15 Abuse screen: Denies threats or abuse. Nutritional screening: No deficits noted. tl3 Tuberculosis screening: No symptoms or risk factors identified. Fall Risk None identified. Assessment: 21:15 General: Appears uncomfortable, well groomed, well developed, well nourished, Behavior tl3 is. Pain: Denies pain. Neuro: Level of Consciousness is awake, alert, obeys commands, Oriented to person, place, time, situation, Appropriate for age. Cardiovascular: Heart tones S1 S2 present Capillary refill < 3 seconds in bilateral fingers. Respiratory: Airway is patent Trachea midline Respiratory effort is even, unlabored, Respiratory pattern is regular, symmetrical, Breath sounds are clear. GI: No signs and/or symptoms were reported involving the gastrointestinal system. : No signs and/or symptoms were reported regarding the genitourinary system. EENT: No signs and/or symptoms were reported regarding the EENT system. Derm: No signs and/or symptoms reported regarding the dermatologic system. Musculoskeletal: No signs and/or symptoms reported regarding the musculoskeletal system. 22:54 Reassessment: No changes from previously documented assessment. Patient and/or family tl3 updated on plan of care and expected duration. Pain level reassessed. Patient is alert, oriented x 3, equal unlabored respirations, skin warm/dry/pink. pt needs midline to be placed due to recent hospitalization, 3 sites infiltrated and only the left arm is an option for IV placement. 07/28 00:03 Reassessment: Patient appears in no apparent distress at this time. No changes from tl3 previously documented assessment. Patient and/or family updated on plan of care and expected duration. Pain level reassessed. Patient is alert, oriented x 3, equal unlabored respirations, skin warm/dry/pink. pt requests pain med for headache. 01:09 Reassessment: No changes from previously documented assessment. Patient and/or family tl3 updated on plan of care and expected duration. Pain level reassessed. Patient is alert, oriented x 3, equal unlabored respirations, skin warm/dry/pink. pt in CT. 02:18 Reassessment: Pt. appears to be sleeping in room \T\ this time... family \T\ bedside. Pt. rk 2 appears to be in no distress \T\ this time. No needs voiced. 03:20 Reassessment: Patient is alert, oriented x 3, equal unlabored respirations, skin bb warm/dry/pink. pt resting quietly, watching TV with family, awaiting transfer to facility for higher level of care. 04:25 Reassessment: No changes from previously documented assessment. bb 05:09 Reassessment: pt appears to be sleeping, eyes closed resp unlabored, O2 sats dropped bb into 80s O2 applied via NC at 2 Lpm O2 sats now 96%. Pt awaiting repeat lab results. 06:12 Reassessment: Patient is alert, oriented x 3, equal unlabored respirations, skin bb warm/dry/pink. pt verbalized understanding of and agrees to plan of care states she has appt with Dr Reynolds today at approx 1500, pt ambulated with steady gait to exit accompanied by daughter. Vital Signs: 07/27 21:07 BP 134 / 69; Pulse 95; Resp 18 S; Temp 100.2(O); Pulse Ox 96% on R/A; Weight 113.4 kg bb (R); Height 5 ft. 3 in. (160.02 cm) (R); Pain 8/10; 07/28 00:03 BP 126 / 52; Pulse 94; Resp 18; Pulse Ox 95% on R/A; tl3 00:49 BP 125 / 59; Pulse 90; Resp 16; Temp 98.0(O); Pulse Ox 96% on R/A; tl3 02:07 BP 106 / 55; Pulse 76; Resp 17; Pulse Ox 94% on R/A; rk2 02:30 BP 116 / 57; Pulse 72; Resp 18; Pulse Ox 98% ; rk2 03:19 BP 130 / 59; Pulse 82; Resp 18 S; Temp 98.3(O); Pulse Ox 94% on R/A; bb 04:26 BP 121 / 62; Pulse 76; Resp 20; Pulse Ox 96% on R/A; bb 05:12 BP 144 / 61; Pulse 75; Resp 22 S; Pulse Ox 96% on 2 lpm NC; bb 06:21 BP 139 / 63; Pulse 70; Resp 18; Temp 98(O); Pulse Ox 95% on R/A; bb 07/27 21:07 Body Mass Index 44.29 (113.40 kg, 160.02 cm) bb ED Course: 07/27 19:53 Patient arrived in ED. am2 19:54 Madhu Albarado MD is Private Physician. am2 21:06 Triage completed. bb 21:07 Arm band placed on left wrist. Patient placed in an exam room, on a stretcher. bb 21:12 Matthew Patel MD is Attending Physician. gs 21:15 No apparent distress. tl3 21:15 Patient has correct armband on for positive identification. Placed in gown. Bed in low tl3 position. Call light in reach. Adult w/ patient. Door closed. Warm blanket given. 21:15 No provider procedures requiring assistance completed. tl3 21:33 Cherelle Barkley, RN is Primary Nurse. tl3 22:22 Chest Single View XRAY In Process Unspecified. EDMS 23:20 Initial lab(s) drawn, by me, sent to lab. Inserted 18 gauge 10 cm midline to left upper fc brachial vein on second attempt. Line with good blood return and flushes well. 04 01:16 CT Chest Wo Con In Process Unspecified. EDMS 04:38 Repeat lab(s) drawn. by me, sent to lab. bb 05:10 Oxygen administration via nasal cannula \T\ 2L/min Response to oxygen therapy: symptoms bb improved. 05:33 Madhu Albarado MD is Referral Physician. gs 06:22 IV discontinued, intact, bleeding controlled, No redness/swelling at site. Pressure bb dressing applied. Administered Medications: 00:02 Drug: NS 0.9% 1000 ml Route: IV; Rate: 1 bolus; Site: left upper arm; Delivery: Primary tl3 tubing; 01:57 Follow up: Response: No adverse reaction; IV Status: Completed infusion rk2 00:02 Drug: Cefepime 1 grams Route: IVPB; Rate: 200 ml/hr; Infused Over: 30 mins; Site: left tl3 upper arm; 00:40 Follow up: IV Status: Completed infusion; IV Intake: 100ml tl3 00:30 Drug: Tylenol 650 mg Route: PO; tl3 18:12 Follow up: Response: No adverse reaction tl3 Intake: 00:40 IV: 100ml; Total: 100ml. tl3 Outcome: 05:34 Discharge ordered by . 06:22 Discharged to home ambulatory, with family. bb 06:22 Condition: stable 06:22 Discharge instructions given to patient, Instructed on discharge instructions, follow up and referral plans. Demonstrated understanding of instructions, follow-up care. 06:23 Patient left the ED. bb Signatures: Dispatcher [employer] EDRI Jenni Adams RN RN Jolene Braun RN RN Rere Green Gregory, MD MD Ainsley Huntley RN RN rk2 Cherelle Barkley RN RN tl3 Corrections: (The following items were deleted from the chart) 07/27 21:09 21:04 Presenting complaint: Patient states: she was discharged from this hospital today bb with low-grade fever after having a blood transfusion for GI bleed she called her PCP Dr Albarado who told her to come to ED bb
--- NOTE | 2017-07-28 05:34 | EDPHYS ---
Physician Documentation [facility] Name: Zenaida Goss Age: 57 yrs Sex: Female : 1960 Arrival Date: 07/27/2017 Time: 19:53 Bed 14 Private MD: Madhu Albarado R ED Physician Matthew Patel HPI: 07/28 04:52 This 57 yrs old Female presents to ER via Ambulatory with complaints of Fever. gs 04:52 Onset: The symptoms/episode began/occurred yesterday. Modifying factors: there are no gs obvious modifying factors. Associated signs and symptoms: Pertinent positives: chills, Pertinent negatives: abdominal pain, cough. Severity of symptoms: At their worst the symptoms were mild in the emergency department the symptoms are unchanged. The patient has not experienced similar symptoms in the past. The patient has been recently been admitted at [facility], was discharged last week, HAD BLOOD TRANSFUSION, NEUPOGEN SHOT, HAVING VERY SCANT AMOUNT RECTAL BLEEDING YESTERDAY. Historical: - Allergies: 07/27 21:07 Morphine (Anaphylaxis); bb - Home Meds: 21:07 b12 injections [Active]; Lactulose Oral as needed [Active]; bb - PMHx: 21:07 Anemia; Cirrhosis; Pancreatitis; varices; bb - PSHx: 21:07 R lumpectomy; Appendectomy; Cholecystectomy; Tubal ligation; Tonsillectomy; bb - Immunization history:: Adult Immunizations up to date. - Social history:: Smoking status: Patient/guardian denies using tobacco, Patient/guardian denies using alcohol, street drugs. ROS: 07/28 04:52 All other systems are negative. gs Exam: 04:52 Head/Face: Normocephalic, atraumatic. Eyes: Pupils equal round and reactive to light, gs extra-ocular motions intact. Lids and lashes normal. Conjunctiva and sclera are non-icteric and not injected. Cornea within normal limits. Periorbital areas with no swelling, redness, or edema. ENT: Nares patent. No nasal discharge, no septal abnormalities noted. Tympanic membranes are normal and external auditory canals are clear. Oropharynx with no redness, swelling, or masses, exudates, or evidence of obstruction, uvula midline. Mucous membranes moist. Neck: Trachea midline, no thyromegaly or masses palpated, and no cervical lymphadenopathy. Supple, full range of motion without nuchal rigidity, or vertebral point tenderness. No Meningismus. Chest/axilla: Normal chest wall appearance and motion. Nontender with no deformity. No lesions are appreciated. Cardiovascular: Regular rate and rhythm with a normal S1 and S2. No gallops, murmurs, or rubs. Normal PMI, no JVD. No pulse deficits. Respiratory: Lungs have equal breath sounds bilaterally, clear to auscultation and percussion. No rales, rhonchi or wheezes noted. No increased work of breathing, no retractions or nasal flaring. Abdomen/GI: Soft, non-tender, with normal bowel sounds. No distension or tympany. No guarding or rebound. No evidence of tenderness throughout. Back: No spinal tenderness. No costovertebral tenderness. Full range of motion. Skin: Warm, dry with normal turgor. Normal color with no rashes, no lesions, and no evidence of cellulitis. MS/ Extremity: Pulses equal, no cyanosis. Neurovascular intact. Full, normal range of motion. Neuro: Awake and alert, GCS 15, oriented to person, place, time, and situation. Cranial nerves II-XII grossly intact. Motor strength 5/5 in all extremities. Sensory grossly intact. Cerebellar exam normal. Normal gait. 04:52 Constitutional: The patient appears alert, awake. 04:52 ECG was reviewed by the Attending Physician. Vital Signs: 07/27 21:07 BP 134 / 69; Pulse 95; Resp 18 S; Temp 100.2(O); Pulse Ox 96% on R/A; Weight 113.4 kg bb (R); Height 5 ft. 3 in. (160.02 cm) (R); Pain 8/10; 07/28 00:03 BP 126 / 52; Pulse 94; Resp 18; Pulse Ox 95% on R/A; tl3 00:49 BP 125 / 59; Pulse 90; Resp 16; Temp 98.0(O); Pulse Ox 96% on R/A; tl3 02:07 BP 106 / 55; Pulse 76; Resp 17; Pulse Ox 94% on R/A; rk2 02:30 BP 116 / 57; Pulse 72; Resp 18; Pulse Ox 98% ; rk2 03:19 BP 130 / 59; Pulse 82; Resp 18 S; Temp 98.3(O); Pulse Ox 94% on R/A; bb 04:26 BP 121 / 62; Pulse 76; Resp 20; Pulse Ox 96% on R/A; bb 05:12 BP 144 / 61; Pulse 75; Resp 22 S; Pulse Ox 96% on 2 lpm NC; bb 06:21 BP 139 / 63; Pulse 70; Resp 18; Temp 98(O); Pulse Ox 95% on R/A; bb 07/27 21:07 Body Mass Index 44.29 (113.40 kg, 160.02 cm) bb MDM: 07/27 21:19 Patient medically screened. 07/28 04:52 Differential diagnosis: viral Infection, bacterial infection, pneumonia UTI. Data reviewed: vital signs, nurses notes. Response to treatment: the patient's symptoms have markedly improved after treatment. Physician consultation: Madhu Albarado MD THINKS PT SHOULD SEE HER GI DR. IQRA PORRAS, INFORMED THAT LABS WERE UNREMARKABLE NO DEFINITE SOURCE FOR FEVER. DISCUSSED WITH PT SAYS SHE PREFERS NOT TO BE TRANSFERRED. PLAN IS TO CHECK HB IF HASNT FALLEN WILL DISCHARGE FOR OP FOLLOW UP. PT AND DR MATTHEW CASSIDY WITH PLAN.. 05:32 ED course: BLOOD COUNTS STABLE, PLAN DISCHARGE AND CLOSE FOLLOW UP. FEVER WITHOUT gs SOURCE, PROCAL NORMAL, NEUPOGEN LIKELY CAUSE. 07/27 21:42 Order name: Basic Metabolic Panel; Complete Time: 00:07 07/27 21:42 Order name: Blood Culture Adult (2) 07/27 21:42 Order name: CBC with Diff; Complete Time: 00:38 07/27 21:42 Order name: Lactate; Complete Time: 00:07 07/27 21:42 Order name: LFT's; Complete Time: 00:07 07/27 21:42 Order name: Lipase; Complete Time: 00:07 07/27 21:42 Order name: Procalcitonin; Complete Time: 00:38 07/27 21:42 Order name: Protime (+inr); Complete Time: 00:07 07/27 21:42 Order name: Troponin (emerg Dept Use Only); Complete Time: 00:38 07/27 21:42 Order name: Chest Single View XRAY 07/28 00:37 Order name: CBC Smear Scan; Complete Time: 00:38 EDMS 07/28 00:40 Order name: CT Chest Wo Con gs 07/28 01:03 Order name: Urine Dipstick--Ancillary (enter results); Complete Time: 01:52 rg2 07/28 04:24 Order name: CBC w/o diff; Complete Time: 05:26 gs 07/27 21:42 Order name: Accucheck; Complete Time: 00:03 07/27 21:42 Order name: Cardiac monitoring; Complete Time: 00:02 07/27 21:42 Order name: EKG - Nurse/Tech; Complete Time: 00:02 07/27 21:42 Order name: IV Saline Lock - Large Bore; Complete Time: 00:02 07/27 21:42 Order name: Labs collected and sent; Complete Time: 00:03 07/27 21:42 Order name: O2 Per Protocol; Complete Time: 00:03 07/27 21:42 Order name: O2 Sat Monitoring; Complete Time: 00:40 07/27 21:42 Order name: Urine Dipstick-Ancillary (obtain specimen); Complete Time: 01:00 gs EC:52 Rate is 87 beats/min. Rhythm is regular. QRS interval is normal. QT interval is gs prolonged. T waves are Normal. No ST changes noted. Clinical impression: Abnormal EKG without significant change. Interpreted by me. Administered Medications: 00:02 Drug: NS 0.9% 1000 ml Route: IV; Rate: 1 bolus; Site: left upper arm; Delivery: Primary tl3 tubing; 01:57 Follow up: Response: No adverse reaction; IV Status: Completed infusion rk2 00:02 Drug: Cefepime 1 grams Route: IVPB; Rate: 200 ml/hr; Infused Over: 30 mins; Site: left tl3 upper arm; 00:40 Follow up: IV Status: Completed infusion; IV Intake: 100ml tl3 00:30 Drug: Tylenol 650 mg Route: PO; tl3 18:12 Follow up: Response: No adverse reaction tl3 Disposition: 07/28/17 05:34 Discharged to Home. Impression: Fever, unspecified, Anemia in chronic diseases classified elsewhere. - Condition is Stable. - Discharge Instructions: Anemia, Nonspecific, Fever, Adult. - Medication Reconciliation Form, Thank You Letter, Antibiotic Education, Prescription Opioid Use form. - Follow up: Madhu Albarado MD; When: 1 - 2 days; Reason: Re-evaluation by your physician. Follow up: Private Physician; When: Tomorrow. Signatures: Dispatcher [employer] Jolene Panda, RN RN Matthew Smoers MD MD gs Lowrey, Tammy, RN RN tl3 Ainsley Huntley RN rk2
[2017-07-28 06:37] VITALS: BP 139/63; TEMP 98; O2SAT 95
--- NOTE | 2017-07-28 08:26 | RAD REPORT ---
EXAM DESCRIPTION: CT - Thorax Wo Con - 07/28/2017 1:16 am CLINICAL HISTORY: Chest pain and fever COMPARISON: None TECHNIQUE: Computed axial tomography of the chest was obtained. Contrast was not requested. A preli minary report was generated by [employer] and reviewed prior to this dictation All CT scans are performed using dose optimization technique as appropriate and may include automated exposure control or mA/KV adjustment according to patient size. FINDINGS: The evaluation of mediastinum, isaias and vessels is limited secondary to lack of IV contras t administration. The lungs are clear. No mediastinal or hilar lymphadenopathy is seen. A pleural effusion is not present. A pericardial effusion is not present. IMPRESSION: Unremarkable unenhanced CT chest
--- NOTE | 2017-07-28 08:42 | RAD REPORT ---
EXAM DESCRIPTION: Igor Single View07/27/2017 10:27 pm CLINICAL HISTORY: Fever COMPARISON: July 25, 2017 FINDINGS: The lungs appear clear of acute infiltrate. The heart is normal size IMPRESSION: No acute abnormalities displayed
--- NOTE | 2017-07-28 09:15 | EKG ---
Test Date: 2017-07-28 Test Time: 00:16:46 Carpenter Assembler: TL MEASUREMENT RESULTS: Intervals: Rate: 87 MT: 148 QRSD: 96 QT: 422 QTc: 507 Ovalo: P: 42 MT: 148 QRS: 54 T: 34 INTERPRETIVE STATEMENTS: Normal sinus rhythm Low voltage QRS Prolonged QT Abnormal ECG Compared to ECG 07/25/2017 18:51:19 Low QRS voltage now present Prolonged QT interval now present Electronically Signed On 07-28-17 09:13:46 CDT by Miguel Crenshaw
== END 2017-07-28 06:23 | disposition home or self-care (01) ==
LOC: ER 19:52
DX: D64.9 Anemia, unspecified (principal); K74.60 Unspecified cirrhosis of liver; Z88.5 Allergy status to narcotic agent
CPT/HCPCS: 36415; 71045; 71250; 80048; 80076; 81003; 83605; 83690; 84145; 84484; 85025; 85027; 85610; 87040; 93005; 96361; 96365; 99284; J0692; J7030

== ENCOUNTER 2017-09-17 20:15 | Observation (INO) | payer BC, OTHER ==
--- OUTSIDE RECORDS SUMMARY | 2017-09-17 20:18 | XMS REPORT ---
:1960 [facility] Address [address] [place] [address] Dr. Clay [address] [place] [id number] Care Team Providers Name Role Phone ALEXA ESCALONA Unavailable Unavailable Problems This patient has [...] 8.6 g/dL 12.0-15.[address] [facility] [address] [facility] [id number]) [facility] [id number]
--- OUTSIDE RECORDS SUMMARY | 2017-09-17 20:18 | XMS REPORT | Clinical Summary ---
:1960 Author Organization [facility] Address [address] [place] [address] Phone Care Team Providers Name Role Phone [...] cirrhosis of liver without ascites (HCC) after 09/16/2016 Social History Tobacco Use Types Packs/Day Years Used Date Never Smoker Smokeless Tobacco: Never Used Alcohol Use Drinks/Week oz/Week Comments No Sex Assigned at Date Recorded Not on file Last Filed Vital Signs Vital Sign Reading Time Taken Blood Pressure 115/61 03/30/2017 9:30 AM [employer] Pulse 70 03/30/2017 9:30 AM [employer] Temperature 36.8 C (98.3 F) 03/30/2017 9:00 AM [employer] Respiratory Rate 16 03/30/2017 9:30 AM [employer] Oxygen Saturation 100% 03/30/2017 9:30 AM [employer] Inhaled Oxygen Concentration - - Weight 114.3 kg (252 lb) 03/30/2017 7:20 AM [employer] Height 160 cm (5' 2.99") 03/30/2017 7:20 AM [employer] Body Mass Index 44.65 03/30/2017 7:20 AM [employer] Plan of Treatment Not on file Procedures Procedure Name Priority Date/Time Associated Diagnosis Comments UPPER ENDOSCOPY 03/30/2017 8:00 AM [employer] Extreme obesity UPPER ENDOSCOPY 09/24/2016 2:00 PM CDT Fatty liver after 09/16/2016 Results REPORT OF PROCEDURE - ENDOSCOPY URL (03/30/2017 8:58 AM)Only the most recent of2 resultswithin the time period is included.POC-Hemoglobin meter (09/24/2016 1:37 PM) Component Value Ref Range POC-Hemoglobin Meter 8.6 (L)Comment: TESTED AT [address] 12.0 - 15.0 g/dL [facility] [id number] Specimen Performing Laboratory Blood [facility] [address] [address] after 09/16/2016
[2017-09-17 21:06] LABS: Urine Bacteria <20 /HPF (<20); Urine Culture Reflex Order NOT NEEDED; Urine RBC <5 /HPF (NONE SEEN)
[2017-09-17 21:07] LABS: Urine Blood NEGATIVE (NEG); Urine Glucose NEGATIVE (NEG); Urine Protein TRACE (NEG); Urine Specific Gravity >1.030 (1.005-1.030)
[2017-09-17] MEDS ORDERED: METOCLOPRAMIDE 10 MG/2mL INJ ONE (23:15)
[2017-09-17] MEDS ORDERED: DIPHENHYDRAMINE 50 MG/ML VIAL ONE (23:15)
[2017-09-17] MEDS ORDERED: FENTANYL CITR 100 MCG/2 ML ONE (23:15)
[2017-09-17 23:55] LABS: Absolute Lymphocytes (CBC) 0.4 K/uL (0.7-4.9); Absolute Monocytes 0.3 K/uL (0.1-1.3); Absolute Neutrophil 1.2 K/uL (1.8-8.0); Basophils % 0.3 % (0-1.3); Eosinophils % 2.9 % (0-4.4); Hematocrit 27.4 % (36.0-45.0); Lymphocytes % 20.4 % (15.3-44.8); MCH 27.1 pg (27.0-35.0); MCV 82.6 fL (80-100); MPV 8.1 fL (7.6-11.3); Monocytes % 13.7 % (3.3-12.3); RBC Red Blood Cell Count 3.32 M/uL (3.86-4.86)
[2017-09-18 00:06] LABS: Bicarbonate 26 mEq/L (21-31); Glucose Level 115 mg/dL (65-120); Lipase 54 U/L (22-51); Potassium 3.8 mEq/L (3.6-5.0); Sodium Level 137 mEq/L (135-145)
[2017-09-18 00:12] LABS: ALT/SGPT 41 IU/L (10-60); AST/SGOT 49 IU/L (10-42); Albumin 3.1 g/dL (3.2-5.5); Alkaline Phosphatase 172 IU/L (42-121); Amylase Level 57 U/L (28-100); BUN Blood Urea Nitrogen 8 mg/dL (6-20); Bilirubin Direct 0.4 mg/dL (0-0.2); Bilirubin Total 1.3 mg/dL (0.3-1.2); Protein, Total 6.2 g/dL (6.0-8.3)
[2017-09-18 01:36] LABS: Blood Morphology Comment NOT SEEN (NOT SEEN); Platelet Estimate DECR; Urine White Blood Cell Casts OK
[2017-09-18] MEDS ORDERED: ACETAMINOPHEN 500 MG TAB PO PRN (02:07)
[2017-09-18] MEDS ORDERED: Ringers Lactate 1,000 ML IV ONE (02:08)
--- NOTE | 2017-09-18 02:11 | ER ---
Nurse's Notes [facility] Name: Zenaida Goss Age: 57 yrs Sex: Female : 1960 Arrival Date: 09/17/2017 Time: 20:18 Bed 23 Private MD: Madhu Albarado R Diagnosis: Acute pancreatitis Presentation: 09/17 20:27 Presenting complaint: Patient states: "Im cramping, the upper part of my stomach hurts. aj1 My legs hurt really bad and my back hurts. I had an iron infusion on . I think I have a urinary tract infection" Reports chills, nausea Denies V/D, dysuria. Transition of care: patient was not received from another setting of care. Onset of symptoms was September 10, 2017. Risk Assessment: Do you want to hurt yourself or someone else? Patient reports no desire to harm self or others. Initial Sepsis Screen: Does the patient meet any 2 criteria? No. Patient's initial sepsis screen is negative. Does the patient have a suspected source of infection? No. Patient's initial sepsis screen is negative. Care prior to arrival: None. 20:27 Method Of Arrival: Ambulatory aj1 20:27 Acuity: TANK 3 aj1 Triage Assessment: 20:30 General: Appears uncomfortable, Behavior is calm, cooperative, appropriate for age. aj1 Pain: Complains of pain in back, right upper quadrant, left upper quadrant, right leg and left leg Pain currently is 9 out of 10 on a pain scale. Musculoskeletal: Range of motion: intact in all extremities. Historical: - Allergies: 20:30 Morphine (Anaphylaxis); aj1 - Home Meds: 20:30 b12 injections [Active]; Lactulose Oral as needed [Active]; aj1 - PMHx: 20:30 Anemia; Cirrhosis; Pancreatitis; varices; aj1 - PSHx: 20:30 lumpectomy right breast; Appendectomy; Cholecystectomy; aj1 - Immunization history:: Flu vaccine is up to date. - Social history:: Smoking status: Patient/guardian denies using tobacco. - Ebola Screening: : Patient denies travel to an Ebola-affected area in the 21 days before illness onset. Screenin:30 Abuse screen: Denies threats or abuse. Denies injuries from another. Nutritional kr2 screening: No deficits noted. Tuberculosis screening: No symptoms or risk factors identified. Fall Risk None identified. Assessment: 20:30 General: Appears in no apparent distress. comfortable, well groomed, well developed, kr2 well nourished, Behavior is calm, cooperative, appropriate for age. Pain: Complains of pain in left leg and right leg and abdomen and back Pain currently is 10 out of 10 on a pain scale. Quality of pain is described as aching, Is continuous, Alleviated by nothing. Neuro: Level of Consciousness is awake, alert, obeys commands, Oriented to person, place, time, situation, Appropriate for age. Cardiovascular: Capillary refill < 3 seconds in bilateral fingers Patient's skin is warm and dry. Respiratory: Airway is patent Respiratory effort is even, unlabored, Respiratory pattern is regular, symmetrical. GI: Abdomen is flat, non-distended, Bowel sounds present X 4 quads. : Reports pain flank(s), in lower back. EENT: Oral mucosa is moist. Derm: Skin is intact, is healthy with good turgor, Skin is pink, warm \\T\\ dry. Musculoskeletal: Circulation, motion, and sensation intact. 21:55 Reassessment: Unable to obtain IV access after attempts made by myself and another kr2 nurse. Charge nurse notified and she will attempt using ultrasound. 22:45 Reassessment: Patient returned from ultrasound. Charge nurse notified so that she can kr2 attempt IV insertion and blood draw. 23:30 Reassessment: Patient appears in no apparent distress at this time. Patient and/or kr2 family updated on plan of care and expected duration. Pain level reassessed. Patient is alert, oriented x 3, equal unlabored respirations, skin warm/dry/pink. 09/18 00:44 Reassessment: Patient appears in no apparent distress at this time. Patient and/or kr2 family updated on plan of care and expected duration. Pain level reassessed. Patient is alert, oriented x 3, equal unlabored respirations, skin warm/dry/pink. Patient returned from CT at this time. 02:45 Reassessment: Report given to Carol stoll RN. rk2 Vital Signs: 09/17 20:30 BP 134 / 55; Pulse 87; Resp 18; Temp 98.4; Pulse Ox 100% on R/A; Weight 113.4 kg; aj1 Height 5 ft. 3 in. (160.02 cm); Pain 9/10; 22:30 BP 130 / 60; Pulse 88; Resp 19; Pulse Ox 99% on R/A; kr2 09/18 00:47 BP 127 / 54; Pulse 88; Resp 18; Pulse Ox 98% on R/A; kr2 09/17 20:30 Body Mass Index 44.29 (113.40 kg, 160.02 cm) aj1 ED Course: 09/17 20:18 Patient arrived in ED. ds1 20:29 Triage completed. aj1 20:30 Arm band placed on Patient placed in an exam room. aj1 20:30 Patient has correct armband on for positive identification. Bed in low position. Call kr2 light in reach. Side rails up X 1. Pulse ox on. NIBP on. Door closed. Warm blanket given. Pillow given. Head of bed elevated. 20:36 Neal Lynn PA is PHCP. [facility] 20:36 Marcio Stone MD is Attending Physician. [facility] 21:24 Gabrielle Solis, ERIC is Primary Nurse. kr2 21:45 Missed attempt(s): 22 gauge in left antecubital area. Bleeding controlled, band aid kr2 applied, catheter tip intact. 21:50 Missed attempt(s): 20 gauge in left antecubital area. Performed by Ainsley Huntley RN. kr2 Bleeding controlled, band aid applied, catheter tip intact. 22:29 Ultrasound completed. Patient tolerated well. sg3 22:40 Extrem Venous W Compress Timbo In Process Unspecified. EDMS 23:00 Radiology exam delayed due to lab results not completed at this time. (BUN/Creatinine). vm2 23:15 Inserted 18 gauge 10 cm midline to left upper basilic vein on first attempt. Line with fc good blood return and flushes well. 09/18 00:40 CT Abd/Pelvis - W/Contrast In Process Unspecified. EDMS 02:10 Madhu Albarado MD is Hospitalizing Provider. [facility] 02:14 Madhu Albarado MD is Private Physician. ds1 02:45 No provider procedures requiring assistance completed. Patient admitted, IV remains in rk2 place. Administered Medications: 09/17 23:28 Drug: fentaNYL (PF) 50 mcg Route: IVP; Site: left upper arm; kr2 09/18 00:10 Follow up: Response: No adverse reaction; Pain is decreased kr2 09/17 23:28 Drug: Reglan 10 mg Route: IVP; Site: left upper arm; kr2 09/18 00:09 Follow up: Response: No adverse reaction; Nausea is decreased kr2 09/17 23:28 Drug: diphenhydrAMINE 12.5 mg Route: IVP; Site: left upper arm; kr2 09/18 00:09 Follow up: Response: No adverse reaction kr2 02:14 Drug: Lactated Ringers Solution 1000 ml Route: IV; Rate: 150 ml/hr; Site: left upper rk2 arm; 02:44 Follow up: Response: No adverse reaction; IV Status: Infusion continued upon admission; rk2 Infusion continued upon admission \\T\\ 150/hr. 02:26 Drug: fentaNYL (PF) 50 mcg Route: IVP; Site: left upper arm; rk2 02:44 Follow up: Response: No adverse reaction rk2 Outcome: 02:11 Decision to Hospitalize by Provider. quintin 02:45 Admitted to Med/surg accompanied by tech, via wheelchair. rk2 02:45 Condition: good 02:45 Instructed on the need for admit. 02:46 Patient left the ED. rk2 Signatures: Dispatcher [employer] EDMS Marilee Jaeger RN RN trinity1 Neal Lynn PA PA jmm Chretien, Felicia, RN RN fc Sanford, Demi ds1 Sarah Calle 2 Gabrielle Solis RN RN kr2 Susan Best Rhonda, RN RN rk2
--- NOTE | 2017-09-18 02:11 | EDPHYS ---
Physician Documentation [facility] Name: Zenaida Goss Age: 57 yrs Sex: Female : 1960 Arrival Date: 09/17/2017 Time: 20:18 Bed 23 Private MD: Madhu Albarado R ED Physician Marcio Stone HPI: 09/17 21:17 This 57 yrs old Female presents to ER via Ambulatory with complaints of Leg jmm Pain, Back Pain. 21:17 The patient presents with abdominal pain in the epigastric area. Onset: The jmm symptoms/episode began/occurred gradually. The symptoms radiate to Associated signs and symptoms: Pertinent positives: nausea. The patient has experienced similar episodes in the past. This is a 57 year old female with a history of pancreatitis, cirrhosis of the liver, that presents to the ED with bilateral lower leg pain for a week. Patient also complains of worsening epigastric pain with radiation to the back. . Historical: - Allergies: 20:30 Morphine (Anaphylaxis); aj1 - Home Meds: 20:30 b12 injections [Active]; Lactulose Oral as needed [Active]; aj1 - PMHx: 20:30 Anemia; Cirrhosis; Pancreatitis; varices; aj1 - PSHx: 20:30 lumpectomy right breast; Appendectomy; Cholecystectomy; aj1 - Immunization history:: Flu vaccine is up to date. - Social history:: Smoking status: Patient/guardian denies using tobacco. - Ebola Screening: : Patient denies travel to an Ebola-affected area in the 21 days before illness onset. ROS: 21:17 Constitutional: Negative for fever, chills, and weight loss, Cardiovascular: Negative jmm for chest pain, palpitations, and edema, Respiratory: Negative for shortness of breath, cough, wheezing, and pleuritic chest pain. 21:17 Skin: Negative for injury, rash, and discoloration, Neuro: Negative for headache, weakness, numbness, tingling, and seizure. 21:17 Abdomen/GI: Positive for abdominal pain. 21:17 MS/extremity: Positive for pain. 21:17 All other systems are negative. Exam: 21:17 Head/Face: atraumatic. Chest/axilla: Normal chest wall appearance and motion. jmm Nontender with no deformity. No lesions are appreciated. Cardiovascular: Regular rate and rhythm. No gallops, murmurs, or rubs. Full/Equal distal pulses. Respiratory: Lungs have equal breath sounds bilaterally, clear to auscultation. No rales, rhonchi or wheezes noted. No increased work of breathing, no retractions or nasal flaring. 21:17 Constitutional: The patient appears alert, awake, uncomfortable. 21:17 Abdomen/GI: Inspection: obese Bowel sounds: normal, Palpation: soft, mild abdominal tenderness, in the right upper quadrant and left upper quadrant. 21:17 Back: ROM is normal. 21:17 Musculoskeletal/extremity: ROM: intact in all extremities. 21:17 Skin: Appearance: Color: normal in color. 21:17 Neuro: Orientation: is normal, Mentation: is normal, Memory: is normal. Vital Signs: 20:30 BP 134 / 55; Pulse 87; Resp 18; Temp 98.4; Pulse Ox 100% on R/A; Weight 113.4 kg; 1 Height 5 ft. 3 in. (160.02 cm); Pain 9/10; 22:30 BP 130 / 60; Pulse 88; Resp 19; Pulse Ox 99% on R/A; kr2 09/18 00:47 BP 127 / 54; Pulse 88; Resp 18; Pulse Ox 98% on R/A; kr2 09/17 20:30 Body Mass Index 44.29 (113.40 kg, 160.02 cm) [facility] MDM: 09/17 21:09 Patient medically screened. [facility] 09/18 01:41 Data reviewed: vital signs, nurses notes, lab test result(s). [facility] 02:02 Physician consultation: Madhu Albarado MD accepts admission. [facility] 09/17 20:48 Order name: Urine Dipstick--Ancillary (enter results); Complete Time: 21:11 [facility] 09/17 20:50 Order name: Urine Microscopic Only; Complete Time: 21:11 [facility] 09/17 20:50 Order name: Urine Culture [facility] 09/17 21:10 Order name: Amylase, Serum; Complete Time: 00:57 [facility] 09/17 21:10 Order name: Basic Metabolic Panel; Complete Time: 00:57 [facility] 09/17 21:10 Order name: CBC with Diff; Complete Time: 01:37 [facility] 09/17 21:10 Order name: Creatinine for Radiology; Complete Time: 00:57 [facility] 09/17 21:10 Order name: Hepatic Function; Complete Time: 00:57 [facility] 09/17 21:10 Order name: Lipase; Complete Time: 00:57 [facility] 09/17 23:58 Order name: CBC Smear Scan; Complete Time: 01:37 [facility] 09/18 02:10 Order name: Basic Metabolic Panel [facility] 09/18 02:10 Order name: Basic Metabolic Panel [facility] 09/18 02:10 Order name: CBC with Automated Diff [facility] 09/18 02:10 Order name: CBC with Automated Diff [facility] 09/17 21:10 Order name: IV Saline Lock; Complete Time: 23:28 [facility] 09/17 21:10 Order name: Labs collected and sent; Complete Time: 23:28 [facility] 09/17 21:15 Order name: CT Abd/Pelvis - W/Contrast [facility] 09/17 21:58 Order name: Extrem Venous W Compress Timbo [facility] 09/18 02:10 Order name: NPO [facility] 09/18 02:10 Order name: Lipase [facility] 09/18 02:10 Order name: Lipase [facility] 09/18 02:10 Order name: Liver (Hepatic) Function [facility] 09/18 02:10 Order name: Liver (Hepatic) Function [facility] 09/17 21:10 Order name: Urine Dipstick-Ancillary (obtain specimen); Complete Time: 23:28 jm Administered Medications: 09/17 23:28 Drug: fentaNYL (PF) 50 mcg Route: IVP; Site: left upper arm; kr2 09/18 00:10 Follow up: Response: No adverse reaction; Pain is decreased kr2 09/17 23:28 Drug: Reglan 10 mg Route: IVP; Site: left upper arm; kr2 09/18 00:09 Follow up: Response: No adverse reaction; Nausea is decreased kr2 09/17 23:28 Drug: diphenhydrAMINE 12.5 mg Route: IVP; Site: left upper arm; kr2 09/18 00:09 Follow up: Response: No adverse reaction kr2 02:14 Drug: Lactated Ringers Solution 1000 ml Route: IV; Rate: 150 ml/hr; Site: left upper rk2 arm; 02:44 Follow up: Response: No adverse reaction; IV Status: Infusion continued upon admission; rk2 Infusion continued upon admission \T\ 150/hr. 02:26 Drug: fentaNYL (PF) 50 mcg Route: IVP; Site: left upper arm; rk2 02:44 Follow up: Response: No adverse reaction rk2 Disposition: 06:54 Co-signature as Attending Physician, Marcio Stone MD. rn Disposition: 09/18/17 02:11 Hospitalization ordered by Madhu Albarado for Observation. Preliminary diagnosis is Acute pancreatitis. - Bed requested for Telemetry/MedSurg (observation). - Status is Observation. rk2 - Condition is Stable. - Problem is an acute exacerbation. - Symptoms have improved. UTI on Admission? No Signatures: Dispatcher [employer] EDMS Marilee Jaeger RN RN aj1 Kenyatta Raman, RN RN Neal Reed PA PA jmm Nieto, Roman, MD MD rn Reaves, Karey, RN RN kr2 Ainsley Huntley RN RN rk2 Corrections: (The following items were deleted from the chart) 09/17 21:58 21:16 Extremity Venous Uni Ltd+US.RAD.BRZ ordered. EDMS EDMS 21:58 21:16 Extremity Venous Uni Ltd+US.RAD.BRZ ordered. EDNJ EDMS 09/18 02:12 02:11 Hospitalization Ordered by Madhu Albarado MD for Observation. Preliminary diagnosis mw is Acute pancreatitis. Bed requested for Telemetry/MedSurg (observation). Status is Observation. Condition is Stable. Problem is an acute exacerbation. Symptoms have improved. UTI on Admission? No. [facility] 02:46 02:12 09/18/2017 02:11 Hospitalization Ordered by Madhu Albarado MD for Observation. rk2 Preliminary diagnosis is Acute pancreatitis. Bed requested for Telemetry/MedSurg (observation). Status is Observation. Condition is Stable. Problem is an acute exacerbation. Symptoms have improved. UTI on Admission? No. mw
[2017-09-18] MEDS ORDERED: FENTANYL CITR 100 MCG/2 ML ONE (02:26)
[2017-09-18] MEDS: ONDANSETRON 4 MG/2 ML VIAL IV PRN ×4 (03:22→20:48)
[2017-09-18] MEDS: Ringers Lactate 1,000 ML IV SCH ×3 (03:22→13:00)
[2017-09-18 03:33] VITALS: BMI 45.1
[2017-09-18] MEDS: FENTANYL CITR 100 MCG/2 ML IV PRN ×3 (07:53→20:48)
--- NOTE | 2017-09-18 09:53 | RAD REPORT ---
EXAM DESCRIPTION: VASExtrem Venous W Compress Bil09/17/2017 10:40 pm CLINICAL HISTORY: Bilateral leg pain COMPARISON: 2014 FINDINGS: The common femoral, superficial femoral, popliteal and posterior tibial veins bilaterally are compressible and demonstrate augmentation. Doppler demonstrates good flow. IMPRESSION: No evidence of deep venous thrombosis involving either lower extremity.
--- NOTE | 2017-09-18 10:45 | RAD REPORT ---
EXAM DESCRIPTION: CT - Abdomen Pelvis W Contrast - 09/18/2017 3:21 am CLINICAL HISTORY: Abdominal pain/upper abdominal pain times several days COMPARISON: July 2017 TECHNIQUE: Computed axial tomography of the abdomen pelvis was obtained. 100 cc Isovue-300 was admin istered intravenously. Oral contrast was not requested which limits evaluation of bowel.A preliminary report was generated by [employer] and reviewed prior to this dictation All CT scans are performed using dose optimization technique as appropriate and may include automated exposure control or mA/KV adjustment according to patient size. FINDINGS: A cirrhotic liver is present. The spleen is moderately enlarged. The portal vein is patent . At varices are present. The gallbladder has been removed. The pancreas is normal size and density. The adrenals and kidneys appear unremarkable. There is no evidence of diverticulitis. Small cystic structures within the adnexa are stable. Stranding within the mesentery within the right lower abdomen has progressed. IMPRESSION: Cirrhosis Progression stranding within the fat of the mesenteric probably indicates a mesenteritis
[2017-09-18] MEDS ORDERED: LACTULOSE 20 GM/30 ML UCUP PO PRN ×2 (15:45→15:56)
[2017-09-18] MEDS ORDERED: LACTULOSE 20 GM/30 ML UCUP PO ONE (15:56)
[2017-09-18] MEDS ORDERED: Ringers Lactate 1,000 ML IV SCH (16:00)
--- NOTE | 2017-09-18 18:37 | HP ---
Date of Admission: 09/18/2017 Chief Complaint: Upper abdominal pain. History Of Present Illness: A 57-year-old female, who is known to have multiple medical issues, who was brought to the emergency room with 2 days history of upper abdominal pain radiating to the back. There was no history of vomiting of blood. No history of dark stools. The patient had a CAT scan and blood work. CAT scan was read as evidence of pancreatitis as per ER alberto mercado; however, when I checked the report on the following day, I do not see any evidence of pancr eatitis. It is not clear why I was told that the patient had pancreatitis. Her lipase was 54. Past Medical History: Includes history of cirrhosis of the liver, gastric polyps, history of breast cancer, history of esophageal varices. Past Surgical History: Positive for gallbladder surgery and appendectomy. Physical Examination: General: Revealed a 57-year-old female, not in acute pain. HEENT: Negative. Neck: Supple. JVD negative. Chest: Clear. Heart: Regular. Abdomen: Mild upper abdominal area. No palpable mass. Extremities: No edema. Laboratory Data: White count 2.0, hemoglobin 9.0, platelet count 50,000. Chem profile; lipase 54, b ilirubin 1.3. CT scan of the abdomen, mesenteric stranding and evidence of cirrhosis. Impression: 1.Abdominal pain. 2.Mild elevation of lipase. 3.Stranding of the mesentery. 4.Cirrhosis with leukopenia and thrombocytopenia and anemia. 5.Iron parenteral supplementation. Plan: I will discuss the CAT scan findings with the radiologist. It is possible that the patient's CAT scan was done by virtual nighttime radiologist. This confusion will be discussed with the radiol ogist locally. Meanwhile, the patient is given full liquid diet if she tolerates, unless there are some additional f indings from the radiologist will be discharged and followed up as an outpatient. NOVA/DWAYNE Voice ID: [id number]
[2017-09-18] MEDS ORDERED: PROMETHAZINE 25 MG/ML VIAL IV PRN (20:56)
[2017-09-18 23:38] VITALS: O2SAT 96
[2017-09-19 05:34] LABS: Absolute Lymphocytes (CBC) 0.5 K/uL (0.7-4.9); Absolute Monocytes 0.4 K/uL (0.1-1.3); Absolute Neutrophil 1.6 K/uL (1.8-8.0); Basophils % 0.4 % (0-1.3); Eosinophils % 2.6 % (0-4.4); Hematocrit 27.6 % (36.0-45.0); Lymphocytes % 18.9 % (15.3-44.8); MCH 27.2 pg (27.0-35.0); MCV 83.6 fL (80-100); MPV 8.3 fL (7.6-11.3); Monocytes % 13.8 % (3.3-12.3)
[2017-09-19 05:45] LABS: ALT/SGPT 41 IU/L (10-60); AST/SGOT 44 IU/L (10-42); Albumin 3.1 g/dL (3.2-5.5); Alkaline Phosphatase 145 IU/L (42-121); BUN Blood Urea Nitrogen 7 mg/dL (6-20); Bicarbonate 28 mEq/L (21-31); Bilirubin Direct 0.5 mg/dL (0-0.2); Bilirubin Total 2.1 mg/dL (0.3-1.2); Glucose Level 103 mg/dL (65-120); Lipase 36 U/L (22-51); Potassium 3.9 mEq/L (3.6-5.0); Protein, Total 5.7 g/dL (6.0-8.3); Sodium Level 140 mEq/L (135-145)
[2017-09-19] MEDS: FENTANYL CITR 100 MCG/2 ML IV PRN (08:37)
[2017-09-19] MEDS ORDERED: LACTULOSE 20 GM/30 ML UCUP PO SCH (09:00)
[2017-09-19 09:29] VITALS: BP 130/60; TEMP 98.9
== END 2017-09-19 10:04 | disposition home or self-care (01) ==
LOC: ER 20:15 → ERHOLD 09-18 02:14 → 2ND 09-18 02:23
PROVIDERS: ADMIT Internal Medicine; ATTEND Internal Medicine
DX: R10.10 Upper abdominal pain, unspecified (principal); R79.89 Other specified abnormal findings of blood chemistry; K74.60 Unspecified cirrhosis of liver; D72.819 Decreased white blood cell count, unspecified; D69.6 Thrombocytopenia, unspecified; D64.9 Anemia, unspecified; Z85.3 Personal history of malignant neoplasm of breast
CPT/HCPCS: 36415; 74177; 80048; 80076; 81003; 81015; 82150; 83690; 85025; 87086; 87088; 93970; 96374; 96375; 99285; G0378; J2405; J2550; J2765; J3010; Q9967

== ENCOUNTER 2017-10-27 16:41 | Emergency (ER) | payer BC, OTHER ==
--- OUTSIDE RECORDS SUMMARY | 2017-10-27 16:44 | XMS REPORT ---
:1960 [facility] Address [address] [place] [address] Dr. Clay [address] [place] [id number] Care Team Providers Name Role Phone ALEXA [...] (JEFFERY) (test 8.6 g/dL 12.0-15.0 TESTED AT [facility] [address] [facility] [phone]) [facility] [id number]
--- OUTSIDE RECORDS SUMMARY | 2017-10-27 16:44 | XMS REPORT | Clinical Summary ---
:1960 Author Organization [facility] Address [address] [place] [address] Phone Care Team Providers Name Role Phone [...] Dx) 03/30/2017 Procedure Pass Gastroenterology 03/30/2017 Surgery Gastroenterology Dre Mayer UPPER ENDOSCOPY MD Russell 03/29/2017 Anesthesia Event Gastroenterology Isaias Main MD 03/28/2017 Hospital Encounter Pre-Admission Testing after 10/26/2016 Social History Tobacco Use Types Packs/Day Years Used Date Never Smoker Smokeless Tobacco: Never Used Alcohol Use Drinks/Week oz/Week Comments No Sex Assigned at Date Recorded Not on file Last Filed Vital Signs Vital Sign Reading Time Taken Blood Pressure 115/61 03/30/2017 9:30 AM [employer] Pulse 70 03/30/2017 9:30 AM [employer] Temperature 36.8 C (98.3 F) 03/30/2017 9:00 AM [employer] Respiratory Rate 16 03/30/2017 9:30 AM [employer] Oxygen Saturation 100% 03/30/2017 9:30 AM [employer] Inhaled Oxygen Concentration - - Weight 114.3 kg (252 lb) 03/30/2017 7:20 AM [employer] Height 160 cm (5' 2.99") 03/30/2017 7:20 AM [employer] Body Mass Index 44.65 03/30/2017 7:20 AM [employer] Plan of Treatment Not on file Procedures Procedure Name Priority Date/Time Associated Diagnosis Comments UPPER ENDOSCOPY 03/30/2017 8:00 AM [employer] Extreme obesity after 10/26/2016 Results REPORT OF PROCEDURE - ENDOSCOPY URL (03/30/2017 8:58 AM)after 10/26/2016
[2017-10-27 17:28] LABS: Absolute Lymphocytes (CBC) 0.8 K/uL (0.7-4.9); Absolute Monocytes 0.3 K/uL (0.1-1.3); Absolute Neutrophil 1.6 K/uL (1.8-8.0); Basophils % 0.5 % (0-1.3); Eosinophils % 3.8 % (0-4.4); Lymphocytes % 27.9 % (15.3-44.8); MCH 32.7 pg (27.0-35.0); MPV 7.8 fL (7.6-11.3)
--- NOTE | 2017-10-27 18:02 | RAD REPORT ---
EXAM DESCRIPTION: VAS - Extrem Venous W Compress Timbo - 10/27/2017 5:53 pm CLINICAL HISTORY: SWELLING Bilateral leg edema and swelling. COMPARISON: Extrem Venous W Compress Timbo dated 09/17/2017 TECHNIQUE: Real-time sonographic interrogation of the left and right lower extremity deep venous sys tems was performed. FINDINGS: Normal compressibility, flow augmentation, phasic flow and spontaneous flow is identified in both the left and right lower extremity deep venous systems. IMPRESSION: No sonographic evidence of left or right lower extremity deep venous thrombosis.
[2017-10-27 18:08] LABS: ALT/SGPT 55 U/L (12-78); AST/SGOT 54 U/L (15-37); Albumin 3.3 g/dL (3.4-5.0); Alkaline Phosphatase 173 U/L (45-117); Amylase Level 59 U/L (25-115); BUN Blood Urea Nitrogen 11 mg/dL (7-18); Bicarbonate 25 mmol/L (21-32); Bilirubin Direct 0.9 mg/dL (0-0.2); Bilirubin Total 2.1 mg/dL (0.2-1.0); Glucose Level 79 mg/dL (74-106); Lipase 291 U/L (73-393); Potassium 3.7 mmol/L (3.5-5.1); Protein, Total 6.7 g/dL (6.4-8.2); Sodium Level 141 mmol/L (136-145)
[2017-10-27] MEDS ORDERED: ONDANSETRON 4 MG/2 ML VIAL ONE (18:21)
[2017-10-27 18:33] LABS: Urine Blood NEGATIVE (NEG); Urine Glucose NEGATIVE (NEG); Urine Protein TRACE (NEG); Urine Specific Gravity 1.025 (1.005-1.030)
[2017-10-27 18:42] LABS: Urine Bacteria <20 /HPF (<20); Urine Culture Reflex Order NOT NEEDED; Urine Mucus SLIGHT /HPF (NONE SEEN); Urine RBC <5 /HPF (NONE SEEN)
--- NOTE | 2017-10-27 19:10 | RAD REPORT ---
EXAM DESCRIPTION: CTAbdomen Pelvis W Contrast - 10/27/2017 6:56 pm CLINICAL HISTORY: Abdominal pain. IV ONLY COMPARISON: Abdomen Pelvis W Contrast dated 09/18/2017; Abdomen Pelvis W Contrast dated 07/25/2017 ; Abdomen Pelvis W Contrast dated 11/06/2016; Abdomen Pelvis W Contrast dated 09/03/2016 TECHNIQUE: Biphasic CT imaging of the abdomen and pelvis was performed with 100 ml non-ionic IV cont rast. All CT scans are performed using dose optimization technique as appropriate and may include automated exposure control or mA/KV adjustment according to patient size. FINDINGS: The lung bases are clear. Cirrhotic liver is again noted. Cholecystectomy clips are seen. No liver mass or biliary dilatation d etected. [id number] splenomegaly is identified. The pancreas, adrenal glands are normal. Kidney s show no hydronephrosis or perinephric stranding. Moderate fecal retention in the colon is seen. Mil d inflammation is seen surrounding the rectosigmoid colon as well as along the right pericolic fat. No bowel obstruction, free air, free fluid or abscess. The appendix appears surgically absent. No e vidence of significant lymphadenopathy. No suspicious bony findings. Several small right ovarian cystic structures are present. IMPRESSION: Liver cirrhosis with splenomegaly is noted. Prominent fecal retention throughout the colon with pericolonic inflammatory changes seen may indicat e stercoral colitis. Both kidneys appear normal and size without evidence of significant perinephric fat stranding or absc ess.
--- NOTE | 2017-10-27 19:29 | EDPHYS ---
Physician Documentation [facility] Name: Zenaida Goss Age: 57 yrs Sex: Female : 1960 Arrival Date: 10/27/2017 Time: 16:43 Bed 24 Private MD: Madhu Albarado R ED Physician Marcio Stone HPI: 10/27 16:51 This 57 yrs old Female presents to ER via Ambulatory with complaints of Kindey jmm Infection, Leg Swelling. 16:51 The patient presents with pain that is acute, with no known mechanism of injury. The jmm symptoms are located in the low back. Onset: The symptoms/episode began/occurred gradually, 1 week(s) ago. The pain does not radiate. Associated signs and symptoms: Pertinent positives: dysuria. This is a 57 year old female with a history of anemia, cirrhosis, pancreatitis, leukopenia, that presents to the ED with ongoing lower back pain for a week. The patient was evaluated at [facility] and diagnosed with a kidney infection. Patient is currently taking 500 mg of Levaquin daily. Patient states she has ongoing dysuria and became concerned when she developed lower leg swelling earlier today. Patient denies fever. . Historical: - Allergies: 16:48 Morphine (Anaphylaxis); sv - PMHx: 16:48 Anemia; Cirrhosis; Pancreatitis; varices; sv - PSHx: 16:48 lumpectomy right breast; Appendectomy; Cholecystectomy; sv - Immunization history:: Adult Immunizations up to date. - Social history:: Smoking status: Patient/guardian denies using tobacco. - Ebola Screening: : No symptoms or risks identified at this time. ROS: 16:51 Constitutional: Negative for fever, chills, and weight loss, Cardiovascular: Negative jmm for chest pain, palpitations, and edema, Respiratory: Negative for shortness of breath, cough, wheezing, and pleuritic chest pain. 16:51 Back: Positive for pain at rest. 16:51 MS/extremity: Positive for swelling. 16:51 All other systems are negative. Exam: 16:51 Constitutional: This is a well developed, well nourished patient who is awake, alert, jmm and in no acute distress. Head/Face: atraumatic. Chest/axilla: Normal chest wall appearance and motion. Cardiovascular: Regular rate and rhythm. No edema appreciated Respiratory: Normal respirations, no respiratory distress appreciated 16:51 Back: CVA tenderness, that is mild, is noted bilaterally. 16:51 Musculoskeletal/extremity: bilateral leg swelling appreciated, full dorsalis pedis pulse bilaterally, NVI, compartments are soft. . 16:51 Skin: Appearance: Color: normal in color. 16:51 Neuro: Orientation: is normal, Mentation: is normal, Memory: is normal, Gait: is steady. 16:51 Psych: Behavior/mood is pleasant, cooperative. Vital Signs: 16:48 BP 136 / 79; Pulse 82; Resp 20; Temp 98.1; Pulse Ox 97% ; Weight 113.4 kg; Height 5 ft. sv 3 in. (160.02 cm); Pain 9/10; 18:29 BP 120 / 57; Pulse 67; Pulse Ox 96% on R/A; rv 19:56 BP 121 / 43; Pulse 71; Pulse Ox 99% on R/A; rv 16:48 Body Mass Index 44.29 (113.40 kg, 160.02 cm) sv MDM: 17:06 Patient medically screened. [facility] 19:30 Data reviewed: radiologic studies, CT scan, ultrasound. Counseling: I had a detailed [facility] discussion with the patient and/or guardian regarding: the historical points, exam findings, and any diagnostic results supporting the discharge/admit diagnosis, lab results, radiology results, the need for outpatient follow up, to return to the emergency department if symptoms worsen or persist or if there are any questions or concerns that arise at home. ED course: Patient's urinalysis and ct imaging do not show signs of pyelonephritis. Patient is encouraged to continue antibiotics Patient is advised of the need to follow up with Dr. Albarado for further evaluation of the patient's leg swelling. Patient understood and agrees with the plan of care. . 20:57 Data reviewed: vital signs, nurses notes, lab test result(s). [facility] 10/27 16:52 Order name: Amylase, Serum; Complete Time: 18:35 [facility] 10/27 16:52 Order name: Basic Metabolic Panel; Complete Time: 18:35 [facility] 10/27 16:52 Order name: CBC with Diff; Complete Time: 17:46 [facility] 10/27 16:52 Order name: Creatinine for Radiology; Complete Time: 18:07 [facility] 10/27 16:52 Order name: Hepatic Function; Complete Time: 18:35 [facility] 10/27 16:52 Order name: Lipase; Complete Time: 18:35 [facility] 10/27 16:52 Order name: Urine Microscopic Only; Complete Time: 18:44 [facility] 10/27 16:52 Order name: IV Saline Lock; Complete Time: 18:11 [facility] 10/27 16:52 Order name: Labs collected and sent; Complete Time: 18:11 [facility] 10/27 17:07 Order name: Blood Culture Adult (2) [facility] 10/27 17:07 Order name: US Extremity Venous W Compression Timbo; Complete Time: 18:05 [facility] 10/27 17:47 Order name: CT Abd/Pelvis - W/Contrast; Complete Time: 19:16 [facility] 10/27 18:15 Order name: Urine Dipstick--Ancillary (enter results); Complete Time: 18:35 10/27 16:52 Order name: Urine Dipstick-Ancillary (obtain specimen); Complete Time: 18:11 [facility] Administered Medications: No medications were administered Disposition: 10/28 07:04 Co-signature as Attending Physician, Marcio Stone MD. rn Disposition: 10/27/17 19:29 Discharged to Home. Impression: Edema, unspecified, Low back pain. - Condition is Stable. - Discharge Instructions: Back Pain, Adult, Edema. - Medication Reconciliation Form, Thank You Letter, Antibiotic Education, Prescription Opioid Use form. - Follow up: Madhu Albarado MD; When: 2 - 3 days; Reason: Continuance of care. Signatures: Dispatcher [employer] Katherine Tinajero, RN RN Neal Sargent PA PA [facility] Marcio Stone MD MD rn Vicente, Ronaldo, RN RN rv Corrections: (The following items were deleted from the chart) 10/27 19:57 19:29 10/27/2017 19:29 Discharged to Home. Impression: Edema, unspecified; Low back rv pain. Condition is Stable. Forms are Medication Reconciliation Form, Thank You Letter, Antibiotic Education, Prescription Opioid Use. Follow up: Madhu Albarado; When: 2 - 3 days; Reason: Continuance of care. [facility]
--- NOTE | 2017-10-27 19:29 | ER ---
Nurse's Notes [facility] Name: Zenaida Goss Age: 57 yrs Sex: Female : 1960 Arrival Date: 10/27/2017 Time: 16:43 Bed 24 Private MD: Madhu Albarado R Diagnosis: Edema, unspecified;Low back pain Presentation: 10/27 16:46 Presenting complaint: Patient states: was seen at [place] on Tuesday and dx with kidney sv infection and prescribed antibiotics. Pt reports she took the Azo strip test and came back positive. Pt also states that she started having BLE swelling. c/o bentley back pain. Transition of care: patient was not received from another setting of care. Onset of symptoms was October 22, 2017. Care prior to arrival: None. 16:46 Method Of Arrival: Ambulatory sv 16:46 Acuity: TANK 3 sv 17:34 Risk Assessment: Do you want to hurt yourself or someone else? Patient reports no rv desire to harm self or others. Initial Sepsis Screen: Does the patient meet any 2 criteria? No. Patient's initial sepsis screen is negative. Does the patient have a suspected source of infection? No. Patient's initial sepsis screen is negative. Historical: - Allergies: 16:48 Morphine (Anaphylaxis); sv - PMHx: 16:48 Anemia; Cirrhosis; Pancreatitis; varices; sv - PSHx: 16:48 lumpectomy right breast; Appendectomy; Cholecystectomy; sv - Immunization history:: Adult Immunizations up to date. - Social history:: Smoking status: Patient/guardian denies using tobacco. - Ebola Screening: : No symptoms or risks identified at this time. Screenin:34 Abuse screen: Denies threats or abuse. Denies injuries from another. Nutritional rv screening: No deficits noted. Tuberculosis screening: No symptoms or risk factors identified. Fall Risk None identified. Assessment: 17:33 General: Appears in no apparent distress. comfortable, Behavior is calm, cooperative. rv Pain: Denies pain. Neuro: Level of Consciousness is awake, alert, obeys commands, Oriented to person, place, time, situation. Cardiovascular: Heart tones S1 S2 present. Respiratory: Airway is patent. GI: No signs and/or symptoms were reported involving the gastrointestinal system. : No signs and/or symptoms were reported regarding the genitourinary system. EENT: No signs and/or symptoms were reported regarding the EENT system. Derm: Skin is intact. 18:30 Reassessment: Patient appears in no apparent distress at this time. Patient and/or rv family updated on plan of care and expected duration. Pain level reassessed. Patient is alert, oriented x 3, equal unlabored respirations, skin warm/dry/pink. PATIENT WENT TO CT SCAN. Vital Signs: 16:48 BP 136 / 79; Pulse 82; Resp 20; Temp 98.1; Pulse Ox 97% ; Weight 113.4 kg; Height 5 ft. sv 3 in. (160.02 cm); Pain 9/10; 18:29 BP 120 / 57; Pulse 67; Pulse Ox 96% on R/A; rv 19:56 BP 121 / 43; Pulse 71; Pulse Ox 99% on R/A; rv 16:48 Body Mass Index 44.29 (113.40 kg, 160.02 cm) sv ED Course: 16:43 Patient arrived in ED. sb2 16:44 Madhu Albarado MD is Private Physician. sb2 16:47 Triage completed. sv 16:49 Arm band placed on left wrist. sv 16:51 Neal Lynn PA is PHCP. jmm 16:51 Marcio Stone MD is Attending Physician. jmm 16:55 Inserted saline lock: 20 gauge in left antecubital area, using aseptic technique. rv 17:35 Patient has correct armband on for positive identification. Placed in gown. Bed in low rv position. Call light in reach. Side rails up X 1. Adult w/ patient. Pulse ox on. NIBP on. 17:53 US Extremity Venous W Compression Bentley In Process Unspecified. EDMS 18:[address] jj2 18:56 CT Abd/Pelvis - W/Contrast In Process Unspecified. EDMS 18:56 CT completed. Patient tolerated procedure well. Patient moved back from CT. va 19:29 Madhu Albarado MD is Referral Physician. [facility] 19:57 No provider procedures requiring assistance completed. IV discontinued, bleeding rv controlled, No redness/swelling at site. Pressure dressing applied. Administered Medications: No medications were administered Outcome: 19:29 Discharge ordered by . jm 19:57 Discharged to home ambulatory. rv 19:57 Condition: good 19:57 Discharge instructions given to patient. 19:57 Patient left the ED. rv Signatures: Dispatcher [employer] Katherine Tinajero RN RN Neal Sargent PA PA jmm Jaramillo, Justin jj2 Jordan, Nathan nj Billeau, Sheri 2 Pop Ochoa RN RN rv
[2017-10-27 20:03] VITALS: TEMP 98.1
[2017-10-27 20:05] VITALS: BP 121/43; O2SAT 99
== END 2017-10-27 19:57 | disposition home or self-care (01) ==
LOC: ER 16:41
DX: R60.9 Edema, unspecified (principal); Z88.5 Allergy status to narcotic agent
CPT/HCPCS: 36415; 74177; 80048; 80076; 81003; 81015; 82150; 83690; 85025; 87040; 93970; 99284; J2405; Q9967

== ENCOUNTER 2018-04-08 09:28 | Emergency (ER) | payer BC, OTHER ==
--- OUTSIDE RECORDS SUMMARY | 2018-04-08 09:32 | XMS REPORT ---
:1960 [facility] Address [address] [place] [address] Dr. Clay [address] [place] [id number] Care Team Providers Name Role Phone ALEXA [...] (JEFFERY) (test 8.6 g/dL 12.0-15.0 TESTED AT [facility] [address] [facility] [id number]) [facility] [id number]
--- OUTSIDE RECORDS SUMMARY | 2018-04-08 09:32 | XMS REPORT | Clinical Summary ---
:1960 Author Organization [facility] Address [address] [place] [address] Care Team Providers Name Role Phone Madhu Miranda MD Primary Care Provider Allergies Not on File Medications Not on file Active Problems Not on file Encounters Date Type Specialty Care Team Description 11/17/2017 Lab Lab Dre Mayer MD Blood loss anemia (Primary Dx); Cirrhosis of liver without ascites, unspecified hepatic cirrhosis type; Esophageal varices without bleeding, unspecified esophageal varices type after 04/07/2017 Social History Tobacco Use Types Packs/Day Years Used Date Never Assessed Sex Assigned at Date Recorded Not on file Job Start Date Occupation Industry Not on file Not on file Not on file Travel History Travel Start Travel End No recent travel history available. Last Filed Vital Signs Not on file Plan of Treatment Health Maintenance Due Date Last Done Comments CERVICAL CANCER SCREENING 1982 BREAST CANCER SCREENING 2011 COLON CANCER SCREENING 2011 SHINGLES VACCINES (1 of 2) 2011 INFLUENZA VACCINE 11/09/2017 Procedures Procedure Name Priority Date/Time Associated Diagnosis Comments SMEAR REVIEW STAT 11/17/2017 8:40 Results for this AM CDT procedure are in the results section. ZZESTIMATED GFR STAT 11/17/2017 8:40 Results for this AM CDT procedure are in the results section. PROTHROMBIN TIME STAT 11/17/2017 8:40 Blood loss anemia Results for this WITH INR AM CDT Cirrhosis of liver procedure are in without ascites, the results unspecified hepatic section. cirrhosis type Esophageal varices without bleeding, unspecified esophageal varices type HC COMPLETE BLD STAT 11/17/2017 8:40 Blood loss anemia Results for this COUNT W/AUTO DIFF AM CDT Cirrhosis of liver procedure are in without ascites, the results unspecified hepatic section. cirrhosis type Esophageal varices without bleeding, unspecified esophageal varices type HEPATIC FUNCTION STAT 11/17/2017 8:40 Blood loss anemia Results for this PANEL AM CDT Cirrhosis of liver procedure are in without ascites, the results unspecified hepatic section. cirrhosis type Esophageal varices without bleeding, unspecified esophageal varices type BASIC METABOLIC STAT 11/17/2017 8:40 Blood loss anemia Results for this PANEL AM CDT Cirrhosis of liver procedure are in without ascites, the results unspecified hepatic section. cirrhosis type Esophageal varices without bleeding, unspecified esophageal varices type after 04/07/2017 Results Smear review (11/17/2017 8:40 AM CDT) Platelet slide review Mkd decreased (A) [facility] DEPARTMENT OF PATHOLOGY AND GENOMIC MEDICINE Anisocytosis Moderate [facility] DEPARTMENT OF PATHOLOGY AND GENOMIC MEDICINE Ovalocytes Moderate [facility] DEPARTMENT OF PATHOLOGY AND GENOMIC MEDICINE Performing Organization Address City/[facility] [place] [place] Phone Number [facility] DEPARTMENT OF PATHOLOGY AND [address] [place] [address] [facility] Estimated GFR (11/17/2017 8:40 AM CDT) GFR Non Af Amer >90 mL/min/1.73 m2 [facility] DEPARTMENT OF PATHOLOGY AND GENOMIC MEDICINE GFR Af Amer >90 mL/min/1.73 m2 [facility] DEPARTMENT OF Comment: PATHOLOGY AND GENOMIC Chronic kidney disease: <60 mL/min/1.73m2 MEDICINE Kidney failure: <15 mL/min/1.73m2 The estimated GFR is calculated from the IDMS-traceable Modification of Diet in Renal Disease Equation. The accuracy of the calculation is poor when the creatinine is normal. Calculated values >90 mL/min/1.73m2 are not reported. This equation has not been validated in children (<18 years), women, the elderly (>70 years), or ethnic groups other than Caucasians and Americans. Specimen Plasma specimen Performing Organization Address City/State/Zipcode Phone Number [facility] DEPARTMENT OF PATHOLOGY AND [address] [place] [address] [facility] Prothrombin time with INR (11/17/2017 8:40 AM CDT) Prothrombin time 16.1 (H) 12.0 - 15.0 sec [facility] DEPARTMENT OF PATHOLOGY AND GENOMIC MEDICINE INR 1.3 [facility] DEPARTMENT OF Comment: PATHOLOGY AND GENOMIC The International Normalized Ratio (INR) is a therapeutic MEDICINE monitoring tool for patients who are stable on oral anticoagulant therapy. An INR of 2.0-3.0 is suggested for deep vein thrombosis/pulmonary embolism. Specimen Blood Performing Organization Address City/State/Zipcode Phone Number [facility] DEPARTMENT OF PATHOLOGY AND [address] [place] [address] GENOMIC MEDICINE CBC with platelet and differential (11/17/2017 8:40 AM CDT) WBC 2.32 (L) 4.50 - 11.00 k/uL [facility] DEPARTMENT OF PATHOLOGY AND GENOMIC MEDICINE RBC 3.56 (L) 4.20 - 5.50 m/uL [facility] DEPARTMENT OF PATHOLOGY AND GENOMIC MEDICINE HGB 11.8 (L) 12.0 - 16.0 g/dL [facility] DEPARTMENT OF PATHOLOGY AND GENOMIC MEDICINE HCT 34.9 (L) 37.0 - 47.0 % [facility] DEPARTMENT OF PATHOLOGY AND GENOMIC MEDICINE MCV 98.0 82.0 - 100.0 fL [facility] DEPARTMENT OF PATHOLOGY AND GENOMIC MEDICINE MCH 33.1 27.0 - 34.0 pg [facility] DEPARTMENT OF PATHOLOGY AND GENOMIC MEDICINE MCHC 33.8 31.0 - 37.0 g/dL [facility] DEPARTMENT OF PATHOLOGY AND GENOMIC MEDICINE RDW - SD 61.6 (H) 37.0 - 55.0 fL [facility] DEPARTMENT OF PATHOLOGY AND GENOMIC MEDICINE MPV 9.9 8.8 - 13.2 fL [facility] DEPARTMENT OF PATHOLOGY AND GENOMIC MEDICINE Platelet count 43 (L) 150 - 400 k/uL [facility] DEPARTMENT OF PATHOLOGY AND GENOMIC MEDICINE Nucleated RBC 0.00 /100 WBC [facility] DEPARTMENT OF PATHOLOGY AND GENOMIC MEDICINE Neutrophils 59.1 39.0 - 69.0 % [facility] DEPARTMENT OF PATHOLOGY AND GENOMIC MEDICINE Lymphocytes 25.4 25.0 - 45.0 % [facility] DEPARTMENT OF PATHOLOGY AND GENOMIC MEDICINE Monocytes 11.2 (H) 0.0 - 10.0 % [facility] DEPARTMENT OF PATHOLOGY AND GENOMIC MEDICINE Eosinophils 3.9 0.0 - 5.0 % [facility] DEPARTMENT OF PATHOLOGY AND GENOMIC MEDICINE Basophils 0.4 0.0 - 1.0 % [facility] DEPARTMENT OF PATHOLOGY AND GENOMIC MEDICINE Immature granulocytes 0.0Comment: 0.0 - 1.0 % [facility] DEPARTMENT OF "Immature PATHOLOGY AND GENOMIC granulocytes" MEDICINE (promyelocytes, myelocytes, metamyelocytes) Specimen Blood Performing Organization Address City/State/Zipcode Phone Number [facility] DEPARTMENT OF PATHOLOGY AND [address] [place] [address] [facility] Hepatic function panel (11/17/2017 8:40 AM CDT) Albumin 3.2 (L) 3.5 - 5.0 g/dL [facility] DEPARTMENT OF PATHOLOGY AND GENOMIC MEDICINE Total bilirubin 2.8 (H) 0.0 - 1.2 mg/dL [facility] DEPARTMENT OF PATHOLOGY AND GENOMIC MEDICINE Bilirubin direct 0.9 (H) 0.0 - 0.3 mg/dL [facility] DEPARTMENT OF PATHOLOGY AND GENOMIC MEDICINE Alkaline phosphatase 140 (H) 35 - 104 U/L [facility] DEPARTMENT OF PATHOLOGY AND GENOMIC MEDICINE Protein 6.2 (L) 6.3 - 8.3 g/dL [facility] DEPARTMENT OF Comment: PATHOLOGY AND GENOMIC 4.6-7.0 g/dL MEDICINE 1 week 4.4-7.6 g/dL 7 months-1year5.1-7.3 g/dL 1-2 years5.6-7.5 g/dL >3 years6.0-8.0 g/dL 18-150 6.3-8.3 g/dL ALT 53 (H) 5 - 50 U/L [facility] DEPARTMENT OF PATHOLOGY AND GENOMIC MEDICINE AST 55 (H) 10 - 35 U/L [facility] DEPARTMENT OF PATHOLOGY AND GENOMIC MEDICINE Specimen Plasma specimen Performing Organization Address City/State/[place] Phone Number [facility] DEPARTMENT OF PATHOLOGY [address] [address] [facility] Basic metabolic panel (11/17/2017 8:40 AM CDT) Sodium 143 135 - 148 mEq/L [facility] DEPARTMENT OF PATHOLOGY AND GENOMIC MEDICINE Potassium 3.9 3.5 - 5.0 mEq/L [facility] DEPARTMENT OF PATHOLOGY AND GENOMIC MEDICINE Chloride 108 98 - 112 mEq/L [facility] DEPARTMENT OF PATHOLOGY AND GENOMIC MEDICINE CO2 29 24 - 31 mEq/L [facility] DEPARTMENT OF PATHOLOGY AND GENOMIC MEDICINE Anion gap 6@ANIO (L) 7 - 15 mEq/L [facility] DEPARTMENT OF PATHOLOGY AND GENOMIC MEDICINE BUN 10 6 - 20 mg/dL [facility] DEPARTMENT OF PATHOLOGY AND GENOMIC MEDICINE Creatinine 0.6 0.5 - 0.9 mg/dL [facility] DEPARTMENT OF PATHOLOGY AND GENOMIC MEDICINE Glucose 114 (H) 65 - 99 mg/dL [facility] DEPARTMENT OF PATHOLOGY AND GENOMIC MEDICINE Calcium 8.7 8.3 - 10.2 mg/dL [facility] DEPARTMENT OF PATHOLOGY AND GENOMIC MEDICINE Specimen Plasma specimen Performing Organization Address City/State/Zipcode Phone Number [facility] DEPARTMENT OF PATHOLOGY AND [address] [place] [address] GENOMIC MEDICINE after 04/07/2017 Insurance Payer Benefit Plan / Group Subscriber ID Type Phone Address BCBS BCBS CHOICE PPO/FEDERAL EMPL PPO xxxxxxxxxxxx PPO MULTIPLAN ALLIED/PHCS-MULTIPLAN xxxxxxxxx PPO Advance Directives Patient has advance care planning documents on file. For more information, please contact:Nishant Chaidez[address] [place] [address]
--- OUTSIDE RECORDS SUMMARY | 2018-04-08 09:32 | XMS REPORT | Clinical Summary ---
:1960 Author Organization [facility] Address [address] [place] [address] Care Team Providers Name Role Phone Madhu Miranda Usman Primary Care Provider Allergies Active Allergy Reactions Severity Noted Date Comments Latex Rash Low 03/28/2017 Morphine Shortness Of Breath, High 06/30/2016 Throat closes, tongue Swelling swelling Medications Medication Sig Dispensed Refills Start Date End Date Status ibuprofen Take 100 mg by 0 Active (ADVIL,MOTRIN) 100 MG mouth every 6 tablet (six) hours as needed for Fever. pantoprazole (PROTONIX) Take 20 mg by 0 Active 20 MG tablet mouth daily. lactulose (CEPHULAC) 10 Take 10 g by 0 Active gram packet mouth 3 (three) times daily. Active Problems Not on file Social History Tobacco Use Types Packs/Day Years [...] Signs Not on file Plan of Treatment Not on file Results Not on fileafter 04/07/2017 Insurance Payer Benefit Plan / Subscriber ID Type Phone Address Group BLUE CROSS/BLUE BCBS ADV HMO xxxxxxxxxxxx [phone] [address] [place] [address] PHCS - PRIVATE PHCS PPO/POS xxxxxxxxx PPO [facility] [place] [address]
[2018-04-08] MEDS ORDERED: NA CHLORIDE 0.9% 1,000 ML ONE (11:45)
[2018-04-08] MEDS ORDERED: FENTANYL CITR 100 MCG/2 ML ONE (11:45)
[2018-04-08] MEDS ORDERED: ONDANSETRON 4 MG/2 ML VIAL ONE (11:45)
[2018-04-08 12:05] LABS: Absolute Lymphocytes (CBC) 0.6 K/uL (0.7-4.9); Absolute Monocytes 0.3 K/uL (0.1-1.3); Absolute Neutrophil 1.5 K/uL (1.8-8.0); Lymphocytes % 23.8 % (15.3-44.8)
[2018-04-08 12:16] LABS: ALT/SGPT 53 U/L (12-78); AST/SGOT 49 U/L (15-37); Albumin 3.3 g/dL (3.4-5.0); Alkaline Phosphatase 148 U/L (45-117); BUN Blood Urea Nitrogen 9 mg/dL (7-18); Basophils % 0.7 % (0-1.3); Bicarbonate 27 mmol/L (21-32); Bilirubin Direct 0.8 mg/dL (0-0.2); Bilirubin Total 2.3 mg/dL (0.2-1.0); Glucose Level 98 mg/dL (74-106); Lipase 313 U/L (73-393); MPV 9.2 fL (7.6-11.3); Monocytes % 10.5 % (3.3-12.3); Potassium 3.8 mmol/L (3.5-5.1); Protein, Total 6.9 g/dL (6.4-8.2); RBC Red Blood Cell Count 3.88 M/uL (3.86-4.86); Sodium Level 142 mmol/L (136-145)
[2018-04-08 13:06] LABS: Blood Morphology Comment NOT SEEN (NOT SEEN); Platelet Estimate DECR; Urine White Blood Cell Casts OK
--- NOTE | 2018-04-08 13:07 | ER ---
Nurse's Notes [facility] Name: Zenaida Goss Age: 57 yrs Sex: Female : 1960 Arrival Date: 04/08/2018 Time: 09:30 Bed 20 Private MD: Madhu Albarado R Diagnosis: Epigastric pain Presentation: 04/08 09:35 Presenting complaint: Patient states: epigastric pain radiates to the mid back started sv 04/04/18. Reports hx of pancreatitis. c/o nausea. Transition of care: patient was not received from another setting of care. Onset of symptoms was April 04, 2018. Care prior to arrival: None. 09:35 Method Of Arrival: Ambulatory sv 09:35 Acuity: TANK 3 sv 13:16 Risk Assessment: Do you want to hurt yourself or someone else? Patient reports no ss desire to harm self or others. Initial Sepsis Screen: Does the patient meet any 2 criteria? No. Patient's initial sepsis screen is negative. Does the patient have a suspected source of infection? No. Patient's initial sepsis screen is negative. Triage Assessment: 09:39 General: Appears in no apparent distress. uncomfortable, obese, Behavior is calm, sv cooperative, appropriate for age. Pain: Complains of pain in epigastric area Pain radiates to back Pain currently is 10 out of 10 on a pain scale. Neuro: Level of Consciousness is awake, alert, obeys commands, Oriented to person, place, time, situation, Moves all extremities. Full function Gait is steady. Respiratory: Respiratory effort is even, unlabored, Respiratory pattern is regular, symmetrical. GI: Reports nausea. Historical: - Allergies: 09:37 Morphine (Anaphylaxis); sv - PMHx: 09:37 Anemia; Cirrhosis; Pancreatitis; varices; sv - PSHx: 09:37 lumpectomy right breast; Appendectomy; Cholecystectomy; sv - Immunization history:: Flu vaccine is not up to date. - Social history:: Smoking status: Patient/guardian denies using tobacco. - Ebola Screening: : No symptoms or risks identified at this time. Screenin:47 Abuse screen: Denies threats or abuse. Denies injuries from another. Nutritional ss screening: No deficits noted. Tuberculosis screening: Never had TB. Fall Risk None identified. Assessment: 11:47 General: Appears uncomfortable, Behavior is calm, cooperative, appropriate for age, ss Reports feeling ill for 2-3 days, > 3 days, fatigue for >3 days, Denies fever. Pain: Complains of pain in left upper quadrant and right upper quadrant and epigastric area Pain radiates to back Pain currently is 10 out of 10 on a pain scale. Quality of pain is described as aching, dull, Pain began 04/04/2018 Is continuous. Neuro: Level of Consciousness is awake, alert, obeys commands, Oriented to person, place, time, situation, Speech is normal, Facial symmetry appears normal. Cardiovascular: Capillary refill < 3 seconds is brisk in bilateral fingers. Respiratory: Airway is patent Respiratory effort is even, unlabored, Respiratory pattern is regular, symmetrical. GI: Abdomen is non-distended, Bowel sounds present X 4 quads. Abd is soft X 4 quads Abdomen is tender to palpation in epigastric area, right upper quadrant and left upper quadrant Reports nausea, Patient currently denies diarrhea. : Denies burning with urination, urinary frequency. EENT: Oral mucosa is moist. Throat is clear. Derm: Skin is pink, warm \T\ dry. normal. Musculoskeletal: Circulation, motion, and sensation intact. Range of motion: intact in all extremities, Swelling absent. 13:03 Reassessment: Pt reports minimal pain relief after initial pain medication ss administration. Pt is grateful for additional dose of Fentanyl as ordered by provider. 13:16 Reassessment: awaiting for IV infusion of NS to complete prior to leaving room. ss Vital Signs: 09:38 BP 119 / 88; Pulse 82; Resp 24; Temp 98.1; Pulse Ox 97% ; Weight 113.4 kg; Height 5 ft. sv 3 in. (160.02 cm); Pain 10/10; 11:47 BP 132 / 61; Pulse 75; Resp 15; Pulse Ox 99% on R/A; ss 09:38 Body Mass Index 44.29 (113.40 kg, 160.02 cm) sv ED Course: 09:30 Patient arrived in ED. sb2 09:30 Madhu Albarado MD is Private Physician. sb2 09:36 Triage completed. sv 09:38 Arm band placed on. sv 09:39 Patient placed in waiting room, Patient notified of wait time. sv 10:45 Neal Lynn PA is PHCP. quintin 10:45 Osmar Sutherland MD is Attending Physician. [facility] 11:01 Urine collected: clean catch specimen, steffen colored. [facility] 11:09 Initial lab(s) drawn, by me, sent to lab. Inserted saline lock: 20 gauge in left dh3 antecubital area, using aseptic technique. Blood collected. 11:23 Inocencia Villafuerte, RN is Primary Nurse. 11:47 Patient has correct armband on for positive identification. Bed in low position. Call ss light in reach. Pulse ox on. NIBP on. 11:47 Patient maintains SpO2 saturation greater than 95% on room air. ss 13:06 Hamzah Reynolds MD is Referral Physician. [facility] 13:15 No provider procedures requiring assistance completed. ss 13:42 IV discontinued, intact, bleeding controlled, No redness/swelling at site. Pressure ss dressing applied. Administered Medications: 11:40 Drug: NS 0.9% 1000 ml Route: IV; Rate: 1000 ml; Site: left antecubital; ss 13:43 Follow up: IV Status: Completed infusion; IV Intake: 1000ml ss 11:40 Drug: Zofran 4 mg Route: IVP; Site: left antecubital; ss 12:58 Follow up: Response: No adverse reaction ss 11:42 Drug: fentaNYL (PF) 25 mcg Route: IVP; Site: left antecubital; ss 12:58 Follow up: Response: No adverse reaction; Pain is decreased ss 12:58 Drug: fentaNYL (PF) 25 mcg Route: IVP; Site: left antecubital; ss 13:17 Follow up: Response: No adverse reaction; Pain is decreased ss Intake: 13:43 IV: 1000ml; Total: 1000ml. ss Outcome: 13:06 Discharge ordered by . m 13:15 Condition: good 13:15 Discharge instructions given to patient, family, Instructed on discharge instructions, follow up and referral plans. medication usage, Demonstrated understanding of instructions, follow-up care, medications, Prescriptions given X 4. 13:42 Discharged to home ambulatory. ss 13:45 Patient left the ED. Signatures: Katherine Hammond RN RN sv Mickail, Joel, PA PA [facility] Inocencia Villafuerte RN RN Amalia Heck 3 Beata Gillespie sb2 Corrections: (The following items were deleted from the chart) 09:38 09:38 Pulse 82bpm; Resp 24bpm; Pulse Ox 97%; Temp 98.1F; 113.4 kg; Height 5 ft. 3 in.; sv BMI: 44.2; Pain 10/10; sv
--- NOTE | 2018-04-08 13:07 | EDPHYS ---
Physician Documentation [facility] Name: Zenaida Goss Age: 57 yrs Sex: Female : 1960 Arrival Date: 04/08/2018 Time: 09:30 Bed 20 Private MD: Madhu Albarado R ED Physician Osmar Sutherland HPI: 04/08 11:04 This 57 yrs old Female presents to ER via Ambulatory with complaints of jmm Abdominal Pain, Back Pain, Nausea. 11:04 The patient presents with abdominal pain. Onset: The symptoms/episode began/occurred jmm gradually, 4 day(s) ago. The symptoms radiate to Associated signs and symptoms: Pertinent positives: nausea. The symptoms are described as achy. The patient has experienced similar episodes in the past, several times. This is a 57 year old female with a history of pancreatitis that presents t the ED with epigastric abdominal painwhich radiates to the back. patient states this feels similar to previous pancreatitis flares. . Historical: - Allergies: 09:37 Morphine (Anaphylaxis); sv - PMHx: 09:37 Anemia; Cirrhosis; Pancreatitis; varices; sv - PSHx: 09:37 lumpectomy right breast; Appendectomy; Cholecystectomy; sv - Immunization history:: Flu vaccine is not up to date. - Social history:: Smoking status: Patient/guardian denies using tobacco. - Ebola Screening: : No symptoms or risks identified at this time. ROS: 11:04 Constitutional: Negative for fever, chills, and weight loss, Eyes: Negative for injury, jmm pain, redness, and discharge, Cardiovascular: Negative for chest pain, palpitations, and edema, Respiratory: Negative for shortness of breath, cough, wheezing, and pleuritic chest pain. 11:04 Abdomen/GI: Positive for abdominal pain, nausea. 11:04 Back: Positive for radiated pain. 11:04 All other systems are negative. Exam: 11:04 Constitutional: This is a well developed, well nourished patient who is awake, alert, jmm and in no acute distress. Head/Face: atraumatic. Eyes: EOMI, no conjunctival erythema appreciated ENT: Moist Mucus Membranes Neck: Trachea midline, Supple Chest/axilla: Normal chest wall appearance and motion. Cardiovascular: Regular rate and rhythm. No edema appreciated Respiratory: Normal respirations, no respiratory distress appreciated 11:04 Abdomen/GI: Inspection: abdomen appears normal, Bowel sounds: normal, Palpation: soft, mild abdominal tenderness, in the right upper quadrant and left upper quadrant. 11:04 Back: ROM is normal. 11:04 Musculoskeletal/extremity: ROM: intact in all extremities. 11:04 Skin: Appearance: Color: normal in color. 11:04 Neuro: Orientation: is normal, Mentation: is normal, Memory: is normal. 11:04 Psych: Behavior/mood is pleasant, cooperative. Vital Signs: 09:38 BP 119 / 88; Pulse 82; Resp 24; Temp 98.1; Pulse Ox 97% ; Weight 113.4 kg; Height 5 ft. sv 3 in. (160.02 cm); Pain 10/10; 11:47 BP 132 / 61; Pulse 75; Resp 15; Pulse Ox 99% on R/A; ss 09:38 Body Mass Index 44.29 (113.40 kg, 160.02 cm) sv MDM: 10:54 Patient medically screened. [facility] 13:02 Data reviewed: vital signs, nurses notes. Counseling: I had a detailed discussion with quintin the patient and/or guardian regarding: the historical points, exam findings, and any diagnostic results supporting the discharge/admit diagnosis, lab results, radiology results, the need for outpatient follow up, to return to the emergency department if symptoms worsen or persist or if there are any questions or concerns that arise at home. ED course: Patient states decreased pain in the ED. patient has had no episodes of vomiting. lipase is wnl. abdomen is soft. patient is advised to drink clear liquids and follow up with Dr. Reynolds in clinic. patient is otherwise given return precautions for increased pain, fever, vomiting, ect. patient understood and agrees with the plan of care. . 04/08 10:55 Order name: Creatinine for Radiology [facility] 04/08 11:07 Order name: Urine Dipstick--Ancillary (enter results) 04/08 11:07 Order name: Urine --Ancillary (enter results) 04/08 11:40 Order name: Basic Metabolic Panel; Complete Time: 12:35 [facility] 04/08 11:40 Order name: Liver (Hepatic) Function; Complete Time: 12:35 [facility] 04/08 11:40 Order name: Lipase; Complete Time: 12:35 [facility] 04/08 11:40 Order name: CBC with Automated Diff [facility] 04/08 12:18 Order name: CBC Smear Scan [facility] 04/08 10:55 Order name: IV Saline Lock; Complete Time: 11:12 [facility] 04/08 10:55 Order name: Labs collected and sent; Complete Time: 11:12 [facility] 04/08 10:55 Order name: Urine Dipstick-Ancillary (obtain specimen); Complete Time: 11:01 [facility] Administered Medications: 11:40 Drug: NS 0.9% 1000 ml Route: IV; Rate: 1000 ml; Site: left antecubital; ss 13:43 Follow up: IV Status: Completed infusion; IV Intake: 1000ml ss 11:40 Drug: Zofran 4 mg Route: IVP; Site: left antecubital; ss 12:58 Follow up: Response: No adverse reaction ss 11:42 Drug: fentaNYL (PF) 25 mcg Route: IVP; Site: left antecubital; ss 12:58 Follow up: Response: No adverse reaction; Pain is decreased ss 12:58 Drug: fentaNYL (PF) 25 mcg Route: IVP; Site: left antecubital; ss 13:17 Follow up: Response: No adverse reaction; Pain is decreased ss Disposition: 17:27 Co-signature as Attending Physician, Osmar Sutherland MD. ma2 Disposition: 04/08/18 13:06 Discharged to Home. Impression: Epigastric pain. - Condition is Stable. - Discharge Instructions: Abdominal Pain, Adult. - Prescriptions for Zofran ODT 4 mg Oral tablet,disintegrating - place 2 tablet by TRANSLINGUAL route every 4-6 hours; 30 tablet. omeprazole 40 mg Oral capsule,delayed release(DR/EC) - take 1 capsule by ORAL route once daily before a meal; 30 capsule. Bentyl 20 mg Oral Tablet - take 1 tablet by ORAL route every 6 hours As needed; 20 tablet. Tylenol- Codeine #3 300-30 mg Oral Tablet - take 1 tablet by ORAL route every 6 hours As needed; 12 tablet. - Medication Reconciliation Form, Thank You Letter, Antibiotic Education, Prescription Opioid Use form. - Follow up: Hamzah Reynolds MD; When: 2 - 3 days; Reason: Recheck today's complaints, Continuance of care, Re-evaluation by your physician. Signatures: Dispatcher [employer] Katherine Tinajero RN Neal Moise PA PA jmm Smirch, Shelby, RN RN ss Osmar Sutherland MD MD ma2 Corrections: (The following items were deleted from the chart) 13:45 13:06 04/08/2018 13:06 Discharged to Home. Impression: Epigastric pain. Condition is ss Stable. Forms are Medication Reconciliation Form, Thank You Letter, Antibiotic Education, Prescription Opioid Use. Follow up: Hamzah Reynolds; When: 2 - 3 days; Reason: Recheck today's complaints, Continuance of care, Re-evaluation by your physician. quintin
[2018-04-08 14:24] VITALS: TEMP 98.1
[2018-04-08 14:26] VITALS: BP 132/61; O2SAT 99
[2018-04-08 16:05] LABS: Urine Blood NEGATIVE (NEG); Urine Glucose NEGATIVE (NEG); Urine Protein NEGATIVE (NEG); Urine Specific Gravity 1.025 (1.005-1.030)
== END 2018-04-08 13:45 | disposition home or self-care (01) ==
LOC: ER 09:28
DX: R10.13 Epigastric pain (principal)
CPT/HCPCS: 36415; 80048; 80076; 81003; 81025; 83690; 85025; 96361; 96374; 96375; 99284; J2405; J3010; J7030

== ENCOUNTER 2018-05-29 03:39 | Inpatient (IN) | payer OTHER ==
--- OUTSIDE RECORDS SUMMARY | 2018-05-29 03:42 | XMS REPORT | Clinical Summary ---
:1960 Author Organization [facility] Address [address] [place] [address] Care Team Providers Name Role Phone Madhu Miranda MD Primary Care Provider Allergies Not on File Medications Not on file Active Problems Not on file Encounters Date Type Specialty Care Team Description 11/17/2017 Lab Lab Dre Mayer MD Blood loss anemia (Primary Dx); Cirrhosis of liver without ascites, unspecified hepatic cirrhosis type; Esophageal varices without bleeding, unspecified esophageal varices type after 05/28/2017 Social History Tobacco Use Types Packs/Day Years [...] without bleeding, unspecified esophageal varices type after 05/28/2017 Results Smear review (11/17/2017 8:40 AM CDT) Platelet slide review Mkd decreased (A) [facility] DEPARTMENT OF PATHOLOGY AND GENOMIC MEDICINE Anisocytosis Moderate [facility] DEPARTMENT OF PATHOLOGY AND GENOMIC MEDICINE Ovalocytes Moderate [facility] DEPARTMENT OF PATHOLOGY AND GENOMIC MEDICINE Performing Organization Address City/[facility] [address]/[facility] Phone Number [facility] DEPARTMENT OF PATHOLOGY AND [address] [place] [address] [employer] MEDICINE Estimated GFR (11/17/2017 8:40 AM CDT) GFR Non Af Amer >90 mL/min/1.73 m2 [facility] DEPARTMENT OF PATHOLOGY AND GENOMIC MEDICINE GFR Af Amer >90 mL/min/1.73 m2 [facility] DEPARTMENT OF Comment: PATHOLOGY AND GENOMIC Chronic [...] specimen Performing Organization Address City/State/Zipcode Phone Number [facility] DEPARTMENT OF PATHOLOGY AND [address] [place] [address] [employer] [facility] Prothrombin time with INR (11/17/2017 8:40 AM CDT) Prothrombin time 16.1 (H) 12.0 - 15.0 sec [facility] DEPARTMENT OF PATHOLOGY AND GENOMIC MEDICINE INR 1.3 [facility] DEPARTMENT OF Comment: PATHOLOGY AND GENOMIC The International Normalized Ratio (INR) is a therapeutic MEDICINE monitoring tool for patients who are stable on oral anticoagulant therapy. An INR of 2.0-3.0 is suggested for deep vein thrombosis/pulmonary embolism. Specimen Blood Performing Organization Address City/State/Zipcode Phone Number [facility] DEPARTMENT OF PATHOLOGY AND [address] [place] [address] GENOMIC MEDICINE CBC with platelet and differential (11/17/2017 8:40 AM CDT) WBC 2.32 (L) 4.50 - 11.00 k/uL [facility] DEPARTMENT OF PATHOLOGY AND GENOMIC MEDICINE RBC 3.56 (L) 4.20 - 5.50 m/uL [facility] DEPARTMENT OF PATHOLOGY AND GENOMIC MEDICINE HGB 11.8 (L) 12.0 - 16.0 g/dL [facility] DEPARTMENT OF PATHOLOGY AND GENOMIC MEDICINE HCT 34.9 (L) 37.0 - 47.0 % [facility] DEPARTMENT OF PATHOLOGY AND GENOMIC MEDICINE MCV 98.0 82.0 - 100.0 fL [facility] DEPARTMENT OF PATHOLOGY AND GENOMIC MEDICINE MCH 33.1 27.0 - 34.0 pg [facility] DEPARTMENT OF PATHOLOGY AND GENOMIC MEDICINE MCHC 33.8 31.0 - 37.0 g/dL [facility] DEPARTMENT OF PATHOLOGY AND GENOMIC MEDICINE RDW - SD 61.6 (H) 37.0 - 55.0 fL [facility] DEPARTMENT OF PATHOLOGY AND GENOMIC MEDICINE MPV 9.9 8.8 - 13.2 fL [facility] DEPARTMENT OF PATHOLOGY AND GENOMIC MEDICINE Platelet count 43 (L) 150 - 400 k/uL [facility] DEPARTMENT OF PATHOLOGY AND GENOMIC MEDICINE Nucleated RBC 0.00 /100 WBC [facility] DEPARTMENT OF PATHOLOGY AND GENOMIC MEDICINE Neutrophils 59.1 39.0 - 69.0 % [facility] DEPARTMENT OF PATHOLOGY AND GENOMIC MEDICINE Lymphocytes 25.4 25.0 - 45.0 % [facility] DEPARTMENT OF PATHOLOGY AND GENOMIC MEDICINE Monocytes 11.2 (H) 0.0 - 10.0 % [facility] DEPARTMENT OF PATHOLOGY AND GENOMIC MEDICINE Eosinophils 3.9 0.0 - 5.0 % [facility] DEPARTMENT OF PATHOLOGY AND GENOMIC MEDICINE Basophils 0.4 0.0 - 1.0 % [facility] DEPARTMENT OF PATHOLOGY AND GENOMIC MEDICINE Immature granulocytes 0.0Comment: 0.0 - 1.0 % [facility] DEPARTMENT OF "Immature PATHOLOGY AND GENOMIC granulocytes" MEDICINE (promyelocytes, myelocytes, metamyelocytes) Specimen Blood Performing Organization Address City/State/Zipcode Phone Number [facility] DEPARTMENT OF PATHOLOGY AND [address] [place] [phone] [employer] MEDICINE Hepatic function panel (11/17/2017 8:40 AM CDT) Albumin 3.2 (L) 3.5 - 5.0 g/dL [facility] DEPARTMENT OF PATHOLOGY AND GENOMIC MEDICINE Total bilirubin 2.8 (H) 0.0 - 1.2 mg/dL [facility] DEPARTMENT OF PATHOLOGY AND GENOMIC MEDICINE Bilirubin direct 0.9 (H) 0.0 - 0.3 mg/dL [facility] DEPARTMENT OF PATHOLOGY AND GENOMIC MEDICINE Alkaline phosphatase 140 (H) 35 - 104 U/L [facility] DEPARTMENT OF PATHOLOGY AND GENOMIC MEDICINE Protein 6.2 (L) 6.3 - 8.3 g/dL [facility] DEPARTMENT OF Comment: PATHOLOGY AND GENOMIC 4.6-7.0 g/dL MEDICINE 1 week 4.4-7.6 g/dL 7 months-1year5.1-7.3 g/dL 1-2 years5.6-7.5 g/dL >3 years6.0-8.0 g/dL 18-150 6.3-8.3 g/dL ALT 53 (H) 5 - 50 U/L [facility] DEPARTMENT OF PATHOLOGY AND GENOMIC MEDICINE AST 55 (H) 10 - 35 U/L [facility] DEPARTMENT OF PATHOLOGY AND GENOMIC MEDICINE Specimen Plasma specimen Performing Organization Address City/State/Zipcomt Phone Number [facility] DEPARTMENT OF PATHOLOGY [address] [address] [employer] [facility] Basic metabolic panel (11/17/2017 8:40 AM CDT) Sodium 143 135 - 148 mEq/L [facility] DEPARTMENT OF PATHOLOGY AND GENOMIC MEDICINE Potassium 3.9 3.5 - 5.0 mEq/L [facility] DEPARTMENT OF PATHOLOGY AND GENOMIC MEDICINE Chloride 108 98 - 112 mEq/L [facility] DEPARTMENT OF PATHOLOGY AND GENOMIC MEDICINE CO2 29 24 - 31 mEq/L [facility] DEPARTMENT OF PATHOLOGY AND GENOMIC MEDICINE Anion gap 6@ANIO (L) 7 - 15 mEq/L [facility] DEPARTMENT OF PATHOLOGY AND GENOMIC MEDICINE BUN 10 6 - 20 mg/dL [facility] DEPARTMENT OF PATHOLOGY AND GENOMIC MEDICINE Creatinine 0.6 0.5 - 0.9 mg/dL [facility] DEPARTMENT OF PATHOLOGY AND GENOMIC MEDICINE Glucose 114 (H) 65 - 99 mg/dL [facility] DEPARTMENT OF PATHOLOGY AND GENOMIC MEDICINE Calcium 8.7 8.3 - 10.2 mg/dL [facility] DEPARTMENT OF PATHOLOGY AND GENOMIC MEDICINE Specimen Plasma specimen Performing Organization Address City/State/Zipcode Phone Number [facility] DEPARTMENT OF PATHOLOGY AND [address] [place] [address] GENOMIC MEDICINE after 05/28/2017 Insurance Payer Benefit Plan / Group Subscriber ID Type Phone Address BCBS BCBS CHOICE PPO/FEDERAL EMPL PPO xxxxxxxxxxxx PPO MULTIPLAN ALLIED/PHCS-MULTIPLAN xxxxxxxxx PPO Advance Directives Patient has advance care planning documents on file. For more information, please contact:Nishant Chaidez[address] [place] [address]
--- OUTSIDE RECORDS SUMMARY | 2018-05-29 03:42 | XMS REPORT ---
:1960 [facility] Address [address] [place] [address] Dr. Clay [address] [place] [address] Care Team Providers Name Role Phone ALEXA [...] 8.6 g/dL 12.0-15.[address] [facility] [address] [facility] [phone]) [facility] [id number]
--- OUTSIDE RECORDS SUMMARY | 2018-05-29 03:42 | XMS REPORT | Clinical Summary ---
:1960 Author Organization [facility] Address [address] [place] [address] Care Team Providers Name Role Phone Madhu [...] Not on file Results Not on fileafter 05/28/2017 Insurance Payer Benefit Plan / Subscriber ID Type Phone Address Group BLUE CROSS/BLUE BCBS ADV HMO xxxxxxxxxxxx [phone] [address] [place] [address] PHCS - PRIVATE PHCS PPO/POS xxxxxxxxx PPO [facility] [place] [address]
[2018-05-29] MEDS ORDERED: MEPERIDINE HCL 50 MG/ML AMP ONE ×2 (04:41→08:06)
[2018-05-29] MEDS ORDERED: NA CHLORIDE 0.9% 1,000 ML ONE (04:42)
[2018-05-29] MEDS ORDERED: ONDANSETRON 4 MG/2 ML VIAL ONE ×2 (04:42→08:06)
[2018-05-29 05:03] LABS: Absolute Lymphocytes (CBC) 0.6 K/uL (0.7-4.9); Absolute Monocytes 0.3 K/uL (0.1-1.3); Basophils % 0.6 % (0-1.3); Eosinophils % 2.7 % (0-4.4); Hematocrit 35.8 % (36.0-45.0); Lymphocytes % 18.8 % (15.3-44.8); MPV 9.2 fL (7.6-11.3); Monocytes % 10.8 % (3.3-12.3); RBC Red Blood Cell Count 3.82 M/uL (3.86-4.86)
[2018-05-29 05:14] LABS: ALT/SGPT 47 U/L (12-78); AST/SGOT 37 U/L (15-37); Albumin 3.3 g/dL (3.4-5.0); Alkaline Phosphatase 139 U/L (45-117); BUN Blood Urea Nitrogen 9 mg/dL (7-18); Bicarbonate 26 mmol/L (21-32); Bilirubin Direct 0.7 mg/dL (0-0.2); Bilirubin Total 2.1 mg/dL (0.2-1.0); Glucose Level 119 mg/dL (74-106); Lipase 275 U/L (73-393); Potassium 3.9 mmol/L (3.5-5.1); Protein, Total 6.7 g/dL (6.4-8.2); Sodium Level 142 mmol/L (136-145)
--- NOTE | 2018-05-29 06:41 | ER ---
Nurse's Notes [facility] Name: Zenaida Goss Age: 58 yrs Sex: Female : 1960 Arrival Date: 05/29/2018 Time: 03:40 Bed 15 Private MD: Madhu Albarado R Diagnosis: Acute on chronic pancreatitis Presentation: 05/29 03:50 Presenting complaint: Patient states: low back pain that radiates to upper abd since aa1 yesterday. Reports hx of pancreatitis with similar symptoms. Transition of care: patient was not received from another setting of care. Onset of symptoms was May 28, 2018. Risk Assessment: Do you want to hurt yourself or someone else? Patient reports no desire to harm self or others. Initial Sepsis Screen: Does the patient meet any 2 criteria? No. Patient's initial sepsis screen is negative. Does the patient have a suspected source of infection? Yes: Acute abdominal pain. Care prior to arrival: None. 03:50 Method Of Arrival: Ambulatory aa1 03:50 Acuity: TANK 3 aa1 Triage Assessment: 03:52 General: Appears in no apparent distress. uncomfortable, Behavior is calm, cooperative, aa1 appropriate for age. Historical: - Allergies: 03:52 Morphine (Anaphylaxis); aa1 - Home Meds: 03:52 None [Active]; aa1 - PMHx: 03:52 Anemia; Cirrhosis; Pancreatitis; varices; fatty liver; aa1 - PSHx: 03:52 lumpectomy right breast; Appendectomy; Cholecystectomy; aa1 - Immunization history:: Flu vaccine is not up to date. - Social history:: Smoking status: Patient/guardian denies using tobacco. - Ebola Screening: : No symptoms or risks identified at this time. Screenin:23 Abuse screen: Denies threats or abuse. Nutritional screening: No deficits noted. jb4 Tuberculosis screening: No symptoms or risk factors identified. Fall Risk None identified. Assessment: 04:00 General: Appears in no apparent distress. uncomfortable, Behavior is calm, cooperative, jb4 appropriate for age. Pain: Complains of pain in abdomen Pain radiates to back Pain currently is 5 out of 10 on a pain scale. at worst was 9 out of 10 on a pain scale. Quality of pain is described as "It feels like some one is squeezing my guts." Pain began 1 day ago. Is continuous. Neuro: Level of Consciousness is awake, alert, obeys commands, Oriented to person, place, time, situation. Cardiovascular: Patient's skin is warm and dry. Respiratory: Airway is patent Respiratory effort is even, unlabored, Respiratory pattern is regular, symmetrical. GI: Abdomen is non-distended, obese, Bowel sounds present X 4 quads. Abd is soft X 4 quads Abd is non tender in right upper quadrant, right lower quadrant and left lower quadrant Abdomen is tender to palpation in left upper quadrant Reports upper abdominal pain, nausea. : No signs and/or symptoms were reported regarding the genitourinary system. EENT: No signs and/or symptoms were reported regarding the EENT system. Derm: Skin Skin is pink, warm \\T\\ dry. Musculoskeletal: Circulation, motion, and sensation intact. 05:28 Reassessment: Patient appears in no apparent distress at this time. Patient and/or jb4 family updated on plan of care and expected duration. Pain level reassessed. Patient is alert, oriented x 3, equal unlabored respirations, skin warm/dry/pink. Patient states feeling better. 06:09 Reassessment: Patient appears in no apparent distress at this time. Patient and/or jb4 family updated on plan of care and expected duration. Pain level reassessed. Patient is alert, oriented x 3, equal unlabored respirations, skin warm/dry/pink. 07:02 Reassessment: Pt resting in bed with eyes closed, respirations even and unlabored, skin aa5 is pink/warm/dry. Awaiting room assignment. . 07:50 Reassessment: Pt sitting up in bed resting with eyes close, appears comfortable, pt aa5 easy to awake to verbal stimuli. Pt requesting pain and nausea medication at this time. Pt rates pain a 10/10 on a pain scale at this time. Pt notified of room assignment and notified of wait time to be transported to Room 424. Bed in low position, side rails x 2, call guthrie within reach. . 08:06 Reassessment: Patient is alert, oriented x 3, equal unlabored respirations, skin aa5 warm/dry/pink. Vital Signs: 03:52 BP 140 / 65; Pulse 80; Resp 22; Temp 98.5; Pulse Ox 100% on R/A; Weight 113.4 kg; aa1 Height 5 ft. 3 in. (160.02 cm); Pain 10/10; 05:00 BP 147 / 79; Pulse 81; Resp 16; Pulse Ox 96% on R/A; jb4 06:00 BP 124 / 51; Pulse 73; Resp 16; Pulse Ox 97% on R/A; jb4 07:02 BP 124 / 71; Pulse 75; Resp 18 S; Pulse Ox 98% on R/A; aa5 07:30 BP 124 / 68; Pulse 72; Resp 18 S; Temp 98.0(TE); Pulse Ox 97% on R/A; aa5 08:10 BP 116 / 58; Pulse 74; Resp 16 S; Pulse Ox 97% on R/A; aa5 03:52 Body Mass Index 44.29 (113.40 kg, 160.02 cm) aa1 ED Course: 03:40 Patient arrived in ED. am2 03:41 Madhu Albarado MD is Private Physician. am2 03:51 Triage completed. aa1 03:52 Gilberto Hoang RN is Primary Nurse. jb4 03:52 Arm band placed on right wrist. aa1 04:00 Brandon Oneal MD is Attending Physician. pkl 04:00 Patient has correct armband on for positive identification. Bed in low position. Call jb4 light in reach. Side rails up X 1. Pulse ox on. NIBP on. 04:35 Inserted saline lock: 20 gauge in left antecubital area, using aseptic technique. Blood lp1 collected. 05:[address] via wheelchair. kw1 05:53 CT completed. Patient tolerated procedure well. Patient moved back from CT. kw1 06:08 CT Abd/Pelvis - W/Contrast In Process Unspecified. EDMS 06:39 Madhu Albarado MD is Hospitalizing Provider. pkl 07:00 Report received from ERIC Garcia. aa5 08:19 No provider procedures requiring assistance completed. Patient admitted, IV remains in aa5 place. Administered Medications: 04:40 Drug: NS 0.9% 1000 ml Route: IV; Rate: 1000 ml; Site: left antecubital; jb4 06:50 Follow up: Response: No adverse reaction; IV Status: Completed infusion jb4 04:40 Drug: Zofran 4 mg Route: IVP; Site: left antecubital; jb4 05:10 Follow up: Response: No adverse reaction; Nausea is decreased jb4 04:43 Drug: Demerol 50 mg Route: IVP; Site: left antecubital; jb4 05:10 Follow up: Response: Pain is decreased jb4 08:06 Drug: Demerol 50 mg Route: IVP; Site: left antecubital; aa5 08:06 Drug: Zofran 4 mg Route: IVP; Site: left antecubital; aa5 Outcome: 06:40 Decision to Hospitalize by Provider. pkl 08:19 Admitted to Med/surg accompanied by tech, via wheelchair, with chart, Report called to wilian Rodriguez RN 08:19 Condition: stable 08:19 Instructed on the need for admit, Demonstrated understanding of instructions. 08:32 Patient left the ED. [email or web address] Signatures: Dispatcher [employer] EDMS Rhonda Thomas RN RN aa1 Brandon Oneal MD MD pkl Aline Jimenes RN RN aa5 Kacy Barnes RN RN lp1 Gilberto Hoang RN RN jb4 Rere Guerrero Kimberly kw1 Corrections: (The following items were deleted from the chart) 06:02 05:00 BP 147 / 279; Pulse 81bpm; Resp 16bpm; Pulse Ox 96% RA; jb4 jb4
--- NOTE | 2018-05-29 06:42 | EDPHYS ---
Physician Documentation [facility] Name: Zenaida Goss Age: 58 yrs Sex: Female : 1960 Arrival Date: 05/29/2018 Time: 03:40 Bed 15 Private MD: Madhu Albarado R ED Physician Brandon Oneal HPI: 05/29 04:06 This 58 yrs old Female presents to ER via Ambulatory with complaints of pkl Abdominal Pain, Back Pain. 04:06 The patient presents with abdominal pain in the upper abdomen. Onset: The pkl symptoms/episode began/occurred yesterday. The symptoms radiate to back. Associated signs and symptoms: none. The patient has experienced similar episodes in the past, a few times. H/O pancreatitis. Historical: - Allergies: 03:52 Morphine (Anaphylaxis); aa1 - Home Meds: 03:52 None [Active]; aa1 - PMHx: 03:52 Anemia; Cirrhosis; Pancreatitis; varices; fatty liver; aa1 - PSHx: 03:52 lumpectomy right breast; Appendectomy; Cholecystectomy; aa1 - Immunization history:: Flu vaccine is not up to date. - Social history:: Smoking status: Patient/guardian denies using tobacco. - Ebola Screening: : No symptoms or risks identified at this time. ROS: 04:06 Eyes: Negative for injury, pain, redness, and discharge, ENT: Negative for injury, pkl pain, and discharge, Neck: Negative for injury, pain, and swelling, Cardiovascular: Negative for chest pain, palpitations, and edema, Respiratory: Negative for shortness of breath, cough, wheezing, and pleuritic chest pain. 04:06 Abdomen/GI: Positive for abdominal pain, of the right upper quadrant and left upper quadrant. 04:06 Back: Positive for pain at rest. 04:06 : Negative for urinary symptoms. 04:06 MS/extremity: Negative for acute changes. 04:06 Skin: Negative for rash. 04:06 Neuro: Negative for altered mental status. Exam: 04:06 Head/Face: Normocephalic, atraumatic. Eyes: Pupils equal round and reactive to light, pkl extra-ocular motions intact. Lids and lashes normal. Conjunctiva and sclera are non-icteric and not injected. Cornea within normal limits. Periorbital areas with no swelling, redness, or edema. ENT: Nares patent. No nasal discharge, no septal abnormalities noted. Tympanic membranes are normal and external auditory canals are clear. Oropharynx with no redness, swelling, or masses, exudates, or evidence of obstruction, uvula midline. Mucous membranes moist. Neck: Trachea midline, no thyromegaly or masses palpated, and no cervical lymphadenopathy. Supple, full range of motion without nuchal rigidity, or vertebral point tenderness. No Meningismus. Chest/axilla: Normal chest wall appearance and motion. Nontender with no deformity. No lesions are appreciated. Cardiovascular: Regular rate and rhythm with a normal S1 and S2. No gallops, murmurs, or rubs. Normal PMI, no JVD. No pulse deficits. Respiratory: Lungs have equal breath sounds bilaterally, clear to auscultation and percussion. No rales, rhonchi or wheezes noted. No increased work of breathing, no retractions or nasal flaring. 04:06 Abdomen/GI: Bowel sounds: normal, Palpation: soft, mild abdominal tenderness, in the right upper quadrant and left upper quadrant. 04:06 Back: Exam negative for acute changes. 04:06 : Exam negative for acute changes. 04:06 Musculoskeletal/extremity: Exam is negative for acute changes. 04:06 Skin: Exam negative for rash. 04:06 Neuro: Orientation: is normal, Mentation: is normal, Cranial nerves: grossly normal, Motor: is normal. Vital Signs: 03:52 BP 140 / 65; Pulse 80; Resp 22; Temp 98.5; Pulse Ox 100% on R/A; Weight 113.4 kg; aa1 Height 5 ft. 3 in. (160.02 cm); Pain 10/10; 05:00 BP 147 / 79; Pulse 81; Resp 16; Pulse Ox 96% on R/A; jb4 06:00 BP 124 / 51; Pulse 73; Resp 16; Pulse Ox 97% on R/A; jb4 07:02 BP 124 / 71; Pulse 75; Resp 18 S; Pulse Ox 98% on R/A; aa5 07:30 BP 124 / 68; Pulse 72; Resp 18 S; Temp 98.0(TE); Pulse Ox 97% on R/A; aa5 08:10 BP 116 / 58; Pulse 74; Resp 16 S; Pulse Ox 97% on R/A; aa5 03:52 Body Mass Index 44.29 (113.40 kg, 160.02 cm) aa1 MDM: 04:00 Patient medically screened. pkl 06:38 Data reviewed: vital signs, nurses notes, lab test result(s), radiologic studies, CT pkl scan. 05/29 03:53 Order name: Basic Metabolic Panel; Complete Time: 05:26 aa1 05/29 03:53 Order name: CBC with Diff; Complete Time: 07:09 aa1 05/29 03:53 Order name: Creatinine for Radiology; Complete Time: 05:26 aa1 05/29 03:53 Order name: Hepatic Function; Complete Time: 05:26 aa1 05/29 03:53 Order name: Lipase; Complete Time: 05:26 aa1 05/29 05:12 Order name: CBC Smear Scan; Complete Time: 07:09 EDMS 05/29 06:51 Order name: Basic Metabolic Panel EDMS 05/29 06:51 Order name: Basic Metabolic Panel EDMS 05/29 06:51 Order name: CBC with Automated Diff EDMS 05/29 06:51 Order name: CBC with Automated Diff EDMS 05/29 06:51 Order name: Lipase EDMS 05/29 06:51 Order name: Lipase EDMS 05/29 06:51 Order name: Liver (Hepatic) Function EDMS 05/29 06:51 Order name: Liver (Hepatic) Function EDMS 05/29 03:53 Order name: IV Saline Lock; Complete Time: 04:54 aa1 05/29 03:53 Order name: Labs collected and sent; Complete Time: 04:54 aa1 05/29 04:05 Order name: CT Abd/Pelvis - W/Contrast pkl 05/29 06:51 Order name: CONS Physician Consult EDMS 05/29 06:51 Order name: NPO EDMS Administered Medications: 04:40 Drug: NS 0.9% 1000 ml Route: IV; Rate: 1000 ml; Site: left antecubital; jb4 06:50 Follow up: Response: No adverse reaction; IV Status: Completed infusion jb4 04:40 Drug: Zofran 4 mg Route: IVP; Site: left antecubital; jb4 05:10 Follow up: Response: No adverse reaction; Nausea is decreased jb4 04:43 Drug: Demerol 50 mg Route: IVP; Site: left antecubital; jb4 05:10 Follow up: Response: Pain is decreased jb4 08:06 Drug: Demerol 50 mg Route: IVP; Site: left antecubital; aa5 08:06 Drug: Zofran 4 mg Route: IVP; Site: left antecubital; aa5 Disposition: 05/29/18 06:40 Hospitalization ordered by Madhu Albarado for Observation. Preliminary diagnosis is Acute on chronic pancreatitis. - Bed requested for Telemetry/MedSurg (observation). - Status is Observation. aa5 - Condition is Stable. - Problem is new. - Symptoms are unchanged. UTI on Admission? No Signatures: Dispatcher [employer] EDJazmín Tejeda RN RN dw Rhonda Thomas RN RN aa1 Brandon Oneal MD MD pkl Aline Jimenes RN RN aa5 Gilberto Hoang, RN RN jb4 Corrections: (The following items were deleted from the chart) 07:42 06:40 Hospitalization Ordered by Madhu Albarado MD for Observation. Preliminary diagnosis dw is Acute on chronic pancreatitis. Bed requested for Telemetry/MedSurg (observation). Status is Observation. Condition is Stable. Problem is new. Symptoms are unchanged. UTI on Admission? No. pkl 08:32 07:42 05/29/2018 06:40 Hospitalization Ordered by Madhu Albarado MD for Observation. aa5 Preliminary diagnosis is Acute on chronic pancreatitis. Bed requested for Telemetry/MedSurg (observation). Status is Observation. Condition is Stable. Problem is new. Symptoms are unchanged. UTI on Admission? No. dw
[2018-05-29 06:43] LABS: Blood Morphology Comment NOT SEEN (NOT SEEN); Platelet Estimate DECR; Urine White Blood Cell Casts OK
[2018-05-29 09:50] VITALS: BMI 44.2
[2018-05-29] MEDS: D5 0.45 NS 1,000 ML IV SCH ×3 (09:58→20:38)
[2018-05-29] MEDS ORDERED: INFLUENZA VACCINE (for 3y+) 0.5 ML DOSE IMVAC ONE (11:00)
[2018-05-29] MEDS: MEPERIDINE HCL 50 MG/ML AMP IV PRN ×3 (12:16→20:24)
[2018-05-29] MEDS: ONDANSETRON 4 MG/2 ML VIAL IV PRN ×3 (12:16→20:25)
[2018-05-29 16:16] LABS: Urine Appearance CLEAR; Urine Bilirubin NEGATIVE (NEG); Urine Blood NEGATIVE (NEG); Urine Color DK YELLOW; Urine Glucose NEGATIVE (NEG); Urine Protein NEGATIVE (NEG); Urine Specific Gravity >=1.030 (1.005-1.030); Urine pH 5.5 (5.0-7.0)
[2018-05-29 16:21] LABS: Urine Microscopic Reflex NO UMIC
[2018-05-30] MEDS: MEPERIDINE HCL 50 MG/ML AMP IV PRN ×5 (00:16→22:44)
[2018-05-30] MEDS: ONDANSETRON 4 MG/2 ML VIAL IV PRN (00:16)
[2018-05-30 05:03] LABS: Absolute Lymphocytes (CBC) 0.6 K/uL (0.7-4.9); Absolute Monocytes 0.3 K/uL (0.1-1.3); Basophils % 0.4 % (0-1.3); Eosinophils % 4.4 % (0-4.4); Hematocrit 32.7 % (36.0-45.0); Lymphocytes % 19.7 % (15.3-44.8); MPV 9.1 fL (7.6-11.3); Monocytes % 10.9 % (3.3-12.3); RBC Red Blood Cell Count 3.47 M/uL (3.86-4.86)
[2018-05-30 05:26] LABS: ALT/SGPT 43 U/L (12-78); AST/SGOT 35 U/L (15-37); Alkaline Phosphatase 136 U/L (45-117); BUN Blood Urea Nitrogen 9 mg/dL (7-18); Bicarbonate 27 mmol/L (21-32); Bilirubin Direct 0.8 mg/dL (0-0.2); Bilirubin Total 2.4 mg/dL (0.2-1.0); Glucose Level 115 mg/dL (74-106); Lipase 189 U/L (73-393); Potassium 3.7 mmol/L (3.5-5.1); Protein, Total 6.3 g/dL (6.4-8.2); Sodium Level 138 mmol/L (136-145)
[2018-05-30] MEDS: D5 0.45 NS 1,000 ML IV SCH ×2 (06:02→13:47)
[2018-05-30] MEDS: PROMETHAZINE 25 MG/ML VIAL IV PRN ×4 (06:03→22:45)
--- NOTE | 2018-05-30 06:09 | HP ---
Date of Admission: 05/29/2018 Chief Complaint: Abdominal pain. History Of Present Illness: A 58-year-old female who is known to have chronic pancreatitis, cirrhosi s, leukopenia, and multiple other problems, was brought to the emergency room because of upper and um bilical area pain. The patient had a CAT scan done, which showed evidence of pancreatitis with mild elevation of lipase. The patient is admitted. There is no history of vomiting of blood. No history of tarry stools. Past Medical History: Extensive includes history of chronic anemia, cirrhosis, leukopenia, fatty dina er disease, esophageal varices. Allergies: MORPHINE. Home Medicines: Currently, lactulose. Past Surgical History: Positive for right breast surgery, appendectomy, and gallbladder surgery. Review of Systems: No chest pain or shortness of breath. Physical Examination: General: Revealed a 58-year-old female in moderate pain. Vital Signs: Normal. HEENT: Negative. Neck: Supple. JVD negative. Chest: Clear. Heart: Regular. Abdomen: Tender umbilical area and epigastrium. Bowel sounds present. Extremities: No edema. Neurological: Negative. Laboratory: White count at admission 3.0, hemoglobin 12, platelet count 66. Chem profile; lipase 27 5, alkaline phosphatase is 139. CAT scan, evidence of pancreatitis present. Assessment: 1.Abdominal pain secondary to pancreatitis. 2.Chronic pancreatitis. 3.Cirrhosis of the liver. 4.Fatty liver causing above. 5.Complications of cirrhosis include leukopenia, anemia, and thrombocytopenia. Plan: The patient is on n.p.o. status and getting pain medication. The patient will be reexamined t omorrow to see the progression of her symptoms or . NOVA/DWAYNE Voice ID: [id number]
[2018-05-30] MEDS: LACTULOSE 20 GM/30 ML UCUP PO SCH (10:00)
--- NOTE | 2018-05-30 12:47 | RAD REPORT ---
EXAM DESCRIPTION: CT - Abdomen Pelvis W Contrast - 05/29/2018 6:40 am CLINICAL HISTORY: The patient is 58 years old and is Female; ABD PAIN TECHNIQUE: Axial computed tomography images of the abdomen and pelvis with intravenous contrast. Sag ittal and coronal reformatted images were created and reviewed. This CT exam was performed using one or more of the following dose reduction techniques: Automated exposure control, adjustment of the mA and/or kV according to patient size, and/or use of iterative reconstruction technique COMPARISON: No relevant prior studies available. FINDINGS: Lung bases: Unremarkable. No mass. No consolidation. ABDOMEN: Liver: There is a diffuse decrease in hepatic parenchymal density, consistent with fatty infiltration . Gallbladder and bile ducts: Surgical clips are present in the right upper quadrant, consistent with p revious cholecystectomy. Pancreas: Extensive edema and fat stranding surrounding the pancreas is noted. The pancreas enhances uniformly. Spleen: The spleen is enlarged. Adrenals: Unremarkable. No mass. Kidneys and ureters: Unremarkable. No solid mass. No hydronephrosis. Stomach and bowel: Oral contrast is present within the stomach. Oral contrast is noted throughout the small bowel. Stool is present throughout the colon. Scattered colonic diverticula are present withou t surrounding inflammation. PELVIS: Appendix: No findings to suggest acute appendicitis. Bladder: The bladder is not well-distended. Reproductive: Suggestion of a 3.5 cm left ovarian cyst is noted. The uterus and right ovary nonremark able. ABDOMEN and PELVIS: Intraperitoneal space: Small amount of free fluid is present within the bilateral upper quadrant. No free air. Bones/joints: Mild degenerative change of the spine is present. Soft tissues: The soft tissues are normal. Vasculature: Unremarkable. No abdominal aortic aneurysm. Lymph nodes: Unremarkable. No enlarged lymph nodes. IMPRESSION: 1. Findings consistent with acute pancreatitis. 2. Cirrhotic liver, splenomegaly, and small amount of ascites. Findings suggest portal hypertension. 3. Left ovarian cyst. Recommend prompt follow-up pelvic ultrasound. Electronically signed by Evelyne Snyder MD 05/29/2018 6:13 AM STRUCTURAL FITTER Due to temporary technical issues with the PACS/Fluency reporting system, reports are being signed by the in house radiologist as a courtesy to ensure prompt reporting. The interpreting radiologist is f ully responsible for the content of the report.
[2018-05-30] MEDS ORDERED: FUROSEMIDE 20 MG TABLET PO ONE (14:00)
--- NOTE | 2018-05-31 03:59 | PN ---
The patient's lipase is better; however, she still has significant amount of abdominal pain and nause a. Zofran is not helping. She is on Phenergan. I tried liquid diet; however, she is not able to to lerate. In view of this, she will be continued on IV fluids and re-examined tomorrow. NOVA/DWAYNE Voice ID: [id number] Report ID: [id number]
[2018-05-31] MEDS: MEPERIDINE HCL 50 MG/ML AMP IV PRN ×4 (06:17→22:17)
[2018-05-31] MEDS: PROMETHAZINE 25 MG/ML VIAL IV PRN ×4 (06:17→22:17)
[2018-05-31] MEDS: LACTULOSE 20 GM/30 ML UCUP PO SCH (08:49)
[2018-05-31] MEDS: D5 0.45 NS 1,000 ML IV SCH (10:00)
[2018-05-31] MEDS ORDERED: ACETAMINOPHEN 325 MG TABLET PO ONE (12:40)
--- NOTE | 2018-05-31 13:52 | RAD REPORT ---
EXAM DESCRIPTION: Igor Anderson (2 Views)05/31/2018 1:45 pm CLINICAL HISTORY: Fever COMPARISON: July 2017 FINDINGS: The lungs appear clear of acute infiltrate. The heart is normal size IMPRESSION: No acute abnormalities displayed
[2018-05-31 14:46] LABS: Absolute Lymphocytes (CBC) 0.5 K/uL (0.7-4.9); Absolute Monocytes 0.4 K/uL (0.1-1.3); Absolute Neutrophil 2.5 K/uL (1.8-8.0); Basophils % 0.2 % (0-1.3); Eosinophils % 1.7 % (0-4.4); Hematocrit 33.2 % (36.0-45.0); Lymphocytes % 13.6 % (15.3-44.8); MPV 8.7 fL (7.6-11.3); Monocytes % 10.8 % (3.3-12.3); RBC Red Blood Cell Count 3.56 M/uL (3.86-4.86)
[2018-05-31 15:21] LABS: ALT/SGPT 41 U/L (12-78); AST/SGOT 37 U/L (15-37); Alkaline Phosphatase 150 U/L (45-117); BUN Blood Urea Nitrogen 7 mg/dL (7-18); Bicarbonate 29 mmol/L (21-32); Glucose Level 84 mg/dL (74-106); Potassium 3.8 mmol/L (3.5-5.1); Protein, Total 6.4 g/dL (6.4-8.2); Sodium Level 136 mmol/L (136-145)
[2018-05-31 15:27] LABS: Urine White Blood Cell Casts OK
[2018-05-31 15:28] LABS: Blood Morphology Comment NOT SEEN (NOT SEEN); Platelet Estimate DECR
[2018-05-31] MEDS: PIPER/TAZO/NS 3.375gm 3.375 GM/100 ML BAG IVPB SCH (17:34)
--- NOTE | 2018-05-31 20:46 | RAD REPORT ---
EXAM DESCRIPTION: US - Transvaginal Study Probe - 05/31/2018 8:11 pm CLINICAL HISTORY: left ovarian cyst Pelvic pain. COMPARISON: TRANSVAGINAL STUDY PROBE dated 08/07/2010; Abdomen Pelvis W Contrast dated 05/29/2018 FINDINGS: The uterus is normal in size, shape and echotexture. The uterus measures 7.1 x 5.0 x 4.2 c m. The endometrial stripe measures 5 mm, normal. The left ovary measures 3.4 x 3.2 x 2.2 cm. No dominant cyst is present. Normal blood flow is seen to the left ovary. The right ovary is obscured by bowel gas. No significant pelvic ascites. IMPRESSION: Nonvisualization of the right ovary due to bowel gas, otherwise negative study.No worris ome left ovarian cyst is seen.
[2018-06-01] MEDS: PIPER/TAZO/NS 3.375gm 3.375 GM/100 ML BAG IVPB SCH ×3 (01:56→17:03)
--- NOTE | 2018-06-01 04:15 | PN ---
The patient started having fever this afternoon. Chest x-ray is negative. Her urinalysis is negativ e. She still has tenderness in the upper abdomen. The patient is started on Zosyn by Dr. Reynolds. I t is not clear why patient started having fever. Her bilirubin is higher than at admission. Pending recommendations by Dr. Reynolds, the patient will be continued on full liquid diet. NOVA/DWAYNE Voice ID: [id number] Report ID: [id number]
[2018-06-01 04:56] LABS: BUN Blood Urea Nitrogen 8 mg/dL (7-18); Bicarbonate 27 mmol/L (21-32); Glucose Level 88 mg/dL (74-106); Lipase 128 U/L (73-393); Magnesium 1.8 mg/dL (1.8-2.4); Phosphorus 2.6 mg/dL (2.5-4.9); Sodium Level 137 mmol/L (136-145)
[2018-06-01] MEDS: PROMETHAZINE 25 MG/ML VIAL IV PRN ×4 (04:57→19:39)
[2018-06-01 06:46] LABS: Urine Appearance CLEAR; Urine Blood NEGATIVE (NEG); Urine Color ORANGE; Urine Glucose NEGATIVE (NEG); Urine Protein NEGATIVE (NEG); Urine Urobilinogen >=8.0 mg/dL (0.2-1.0)
[2018-06-01 06:53] LABS: Urine Bilirubin NEGATIVE (NEG)
[2018-06-01 07:32] LABS: Urine Bacteria <20 /HPF (<20); Urine Culture Reflex Order REFLEXED; Urine RBC <5 /HPF (NONE SEEN)
[2018-06-01] MEDS: LACTULOSE 20 GM/30 ML UCUP PO SCH (09:00)
[2018-06-01] MEDS: MEPERIDINE HCL 50 MG/ML AMP IV PRN ×3 (09:29→19:38)
--- NOTE | 2018-06-01 10:37 | RAD REPORT ---
EXAM DESCRIPTION: US - Abdomen Exam Limited - 06/01/2018 10:29 am CLINICAL HISTORY: ascites Evaluate for ascites/paracentesis. COMPARISON: Abdomen Exam Complete dated 11/29/2016 FINDINGS: Real-time sonographic assessment of the intraperitoneal cavity was performed to evaluate f or ascites. No ascites is seen. IMPRESSION: There is no evidence of ascites.
--- NOTE | 2018-06-01 18:56 | P.PN ---
Subjective Date of Service: 06/01/18 Chief Complaint: Mild pancreatitis, coughing, fever to 102F yesterday Subjective: Improving (Now afebrile since yesterday. Doing much better after incentive spirometry and IV Zosyn started yesterday with O2 sat down to 91% on RA. CXR negative. WBC normal. Less abdominal pain.) Review of Systems General: Weakness, Malaise Gastrointestinal: Abdominal Pain (improved) Physical Examination - Vital Signs Temperature: 98.9 F Blood Pressure: 112/54 Pulse: 80 Respirations: 16 Pulse Ox (%): 92 - Physical Exam General: In no apparent distress (sleeping), Oriented x3, Cooperative HEENT: Atraumatic, Normocephalic, PERRLA, EOMI Cardiovascular: Normal pulses Gastrointestinal: No ascites (imaging no ascites), No rebound, No guarding, Tenderness (improved) Neurological: Normal speech, Normal strength at 5/5 x4 extr Assessment And Plan - Current Problems (Diagnosis) (1) Acute on chronic pancreatitis Onset Date: 05/30/18 Current Visit: Yes Status: Acute (2) Abdominal pain Onset Date: 04/30/14 Current Visit: No Status: Acute Qualifiers: (3) Acute bronchitis Current Visit: No Status: Acute (4) Asthma Onset Date: 01/19/17 Current Visit: No Status: Acute (5) Shortness of breath Current Visit: No Status: Acute (6) Cirrhosis of liver Onset Date: 12/23/14 Current Visit: No Status: Chronic (7) Cough Current Visit: Yes Status: Acute Comment: Improved. - Plan REC: 1) continue IV Zosyn & incentive spirometry 2) FL diet and advance slowly to low fat / low cholesterol 3) monitor labs
[2018-06-02] MEDS: MEPERIDINE HCL 50 MG/ML AMP IV PRN ×5 (00:10→20:32)
[2018-06-02] MEDS: PROMETHAZINE 25 MG/ML VIAL IV PRN ×5 (00:10→20:32)
[2018-06-02] MEDS: PIPER/TAZO/NS 3.375gm 3.375 GM/100 ML BAG IVPB SCH ×3 (00:12→16:51)
--- NOTE | 2018-06-02 02:08 | PN ---
The patient still has abdominal pain. Her ultrasound did not show significant ascites to have parace ntesis done. The patient is on Zosyn. This will be continued for another 24 hours. NOVA/DWAYNE Voice ID: [id number] Report ID: [id number]
[2018-06-02] MEDS: LACTULOSE 20 GM/30 ML UCUP PO SCH (08:00)
--- NOTE | 2018-06-02 20:00 | PN ---
Subjective: The patient is afebrile today. She tolerated her soft diet. She still has some abdomin al pain and tenderness, however, it seems to be improving. In view of this, the patient will be cont inued on the same. NOVA/DWAYNE Voice ID: [id number] Report ID: [id number]
[2018-06-03] MEDS: PIPER/TAZO/NS 3.375gm 3.375 GM/100 ML BAG IVPB SCH ×3 (00:27→16:49)
[2018-06-03] MEDS: MEPERIDINE HCL 50 MG/ML AMP IV PRN ×6 (00:28→23:16)
[2018-06-03] MEDS: PROMETHAZINE 25 MG/ML VIAL IV PRN ×6 (00:28→23:16)
[2018-06-03] MEDS ORDERED: SODIUM CHLORIDE 0.9% 10ML INJ IV PRN (08:25)
--- NOTE | 2018-06-03 08:25 | P.PN ---
Subjective Date of Service: 06/03/18 Chief Complaint: Mild pancreatitis, coughing, fever to 102F yesterday Subjective: No new changes (Still with SHRUTI pain (maximum 8/10, now ~3/10). Tolerating diet. Off IVFs with atelectasis versus URI with temp to 102F with coughing before incentive spirometry and IV Zosyn started. No fever in 2 days now. Has h/o moderate to severe gastritis with adenomatous gastric polyps removed in past. Wants to pursue weight loss therapy if possible.) Review of Systems 10-point ROS is otherwise unremarkable Gastrointestinal: Abdominal Pain Physical Examination - Vital Signs Temperature: 98.3 F Blood Pressure: 120/55 Pulse: 78 Respirations: 18 Pulse Ox (%): 92 - Physical Exam General: Alert, In no apparent distress, Oriented x3, Cooperative HEENT: Atraumatic, Normocephalic, PERRLA, EOMI Neck: Supple Respiratory: Diminished (in bases) Cardiovascular: Normal pulses, Edema (mild) Gastrointestinal: Soft and benign, No rebound, No guarding, Tenderness (SHRUTI) Neurological: Normal speech Assessment And Plan - Current Problems (Diagnosis) (1) Acute on chronic pancreatitis Onset Date: 05/30/18 Current Visit: Yes Status: Acute (2) Abdominal pain Onset Date: 04/30/14 Current Visit: No Status: Acute Qualifiers: (3) Acute bronchitis Current Visit: No Status: Acute (4) Asthma Onset Date: 01/19/17 Current Visit: No Status: Acute (5) Shortness of breath Current Visit: No Status: Acute (6) Cirrhosis of liver Onset Date: 12/23/14 Current Visit: No Status: Chronic (7) Cough Current Visit: Yes Status: Acute Comment: Improved. - Plan REC: 1) continue IV Zosyn & incentive spirometry 2) low fat / low cholesterol 3) monitor labs 4) start PPI therapy
[2018-06-03] MEDS: PANTOPRAZOLE 40 MG INJ IVP SCH ×2 (09:20→20:00)
[2018-06-03] MEDS: LACTULOSE 20 GM/30 ML UCUP PO SCH (09:20)
[2018-06-04] MEDS: PIPER/TAZO/NS 3.375gm 3.375 GM/100 ML BAG IVPB SCH ×2 (00:58→09:08)
--- NOTE | 2018-06-04 02:43 | PN ---
The patient is doing better today. She still has abdominal pain, but it is much better. She is tole rating the diet and she is afebrile. She will be examined again tomorrow and if she is stable, she w ill be discharged. NOVA/DWAYNE Voice ID: [id number] Report ID: [id number]
[2018-06-04] MEDS: PROMETHAZINE 25 MG/ML VIAL IV PRN ×2 (04:19→12:08)
[2018-06-04] MEDS: MEPERIDINE HCL 50 MG/ML AMP IV PRN (04:19)
[2018-06-04] MEDS: PANTOPRAZOLE 40 MG INJ IVP SCH (09:08)
[2018-06-04] MEDS: LACTULOSE 20 GM/30 ML UCUP PO SCH (09:08)
[2018-06-04 12:06] VITALS: BP 106/51; TEMP 97.2
[2018-06-04 13:03] VITALS: O2SAT 92
--- NOTE | 2018-06-04 13:12 | P.PN ---
Subjective Date of Service: 06/04/18 Chief Complaint: Mild pancreatitis, coughing, fever to 102F yesterday Subjective: Improving (Less SHRUTI pain since PPI started yesterday. She had outpatient EGD scheduled with [facility] in [place] for last but now rescheduled. Tolerating po diet.) Review of Systems 10-point ROS is otherwise unremarkable Gastrointestinal: Abdominal Pain (Improved. ) Physical Examination - Vital Signs Temperature: 97.2 F Blood Pressure: 106/51 Pulse: 70 Respirations: 18 Pulse Ox (%): 92 - Physical Exam General: Alert, In no apparent distress, Oriented x3, Cooperative HEENT: Atraumatic, Normocephalic, PERRLA, EOMI Neck: Supple Respiratory: Normal air movement Cardiovascular: Normal pulses Gastrointestinal: Soft and benign, No rebound, No guarding, Tenderness (SHRUTI improved) Neurological: Normal speech, Normal strength at 5/5 x4 extr Assessment And Plan - Current Problems (Diagnosis) (1) Acute on chronic pancreatitis Onset Date: 05/30/18 Current Visit: Yes Status: Acute (2) Abdominal pain Onset Date: 04/30/14 Current Visit: No Status: Acute Comment: Improved with start of PPI bid therapy Qualifiers: (3) Acute bronchitis Current Visit: No Status: Acute (4) Asthma Onset Date: 01/19/17 Current Visit: No Status: Acute (5) Shortness of breath Current Visit: No Status: Acute (6) Cirrhosis of liver Onset Date: 12/23/14 Current Visit: No Status: Chronic (7) Cough Current Visit: Yes Status: Acute Comment: Improved. - Plan REC: 1) continue IV Zosyn & incentive spirometry 2) low fat / low cholesterol 3) monitor labs 4) continue PPI therapy 5) EGD at [facility] to be done soon patient reports
== END 2018-06-04 13:30 | disposition home or self-care (01) | DRG 439 ==
LOC: ER 03:39 → ERHOLD 06:52 → 4TH 08:20 → OBSVTOIN 05-31 06:52
PROVIDERS: ADMIT Internal Medicine; ATTEND Internal Medicine
DX: K85.90 Acute pancreatitis without necrosis or infection, unspecified (principal); I85.10 Secondary esophageal varices without bleeding; Z68.41 Body mass index [BMI] 40.0-44.9, adult; D64.9 Anemia, unspecified; K86.1 Other chronic pancreatitis; J45.909 Unspecified asthma, uncomplicated; K74.60 Unspecified cirrhosis of liver; R05 Cough; R50.9 Fever, unspecified; K76.0 Fatty (change of) liver, not elsewhere classified; D69.6 Thrombocytopenia, unspecified; D72.819 Decreased white blood cell count, unspecified; E66.9 Obesity, unspecified
CPT/HCPCS: 36415; 71046; 74177; 76705; 76830; 80048; 80053; 80076; 81001; 81003; 83605; 83690; 83735; 84100; 85025; 87040; 87086; 87088; 96361; 96374; 96375; 99285; C9113; G0008; G0378; J2175; J2405; J2543; J2550; J7030; Q2035; Q9967

== ENCOUNTER 2018-06-14 05:02 | Inpatient (IN) | payer OTHER ==
--- OUTSIDE RECORDS SUMMARY | 2018-06-14 05:04 | XMS REPORT ---
:1960 [facility] [address] [place] [address] Dr. Clay [address] [place] [id number] Care Team Providers Name Role Phone ALEXA [...] (JEFFERY) (test 8.6 g/dL 12.0-15.0 TESTED AT [facility] [address] [facility] [id number]) [facility] [id number]
--- OUTSIDE RECORDS SUMMARY | 2018-06-14 05:04 | XMS REPORT | Clinical Summary ---
:1960 Author Organization [facility] Address [address] [place] [address] Care Team Providers Name Role Phone Madhu [...] Not on file Results Not on fileafter 06/13/2017 Insurance Payer Benefit Plan / Subscriber ID Type Phone Address Group BLUE CROSS/BLUE BCBS ADV HMO xxxxxxxxxxxx [phone] [address] [place] [address] [employer] - PRIVATE PHCS PPO/POS xxxxxxxxx [facility]PO [facility] [place] [address]
--- OUTSIDE RECORDS SUMMARY | 2018-06-14 05:04 | XMS REPORT | Clinical Summary ---
:1960 Author Organization [facility] Address [address] [place] [address] Care Team Providers Name Role Phone Madhu Miranda MD Primary Care Provider Allergies Not on File Medications Not on file Active Problems Not on file Encounters Date Type Specialty Care Team Description 11/17/2017 Lab Lab Dre Mayer MD Blood loss anemia (Primary Dx); Cirrhosis of liver without ascites, unspecified hepatic cirrhosis type; Esophageal varices without bleeding, unspecified esophageal varices type after 06/13/2017 Social History Tobacco Use Types Packs/Day Years [...] 2011 COLON CANCER SCREENING 2011 SHINGLES VACCINES (#1) 2011 INFLUENZA VACCINE 11/09/2017 Procedures Procedure Name [...] without bleeding, unspecified esophageal varices type after 06/13/2017 Results Smear review (11/17/2017 8:40 AM CDT) Platelet slide review Mkd decreased (A) [facility] DEPARTMENT OF PATHOLOGY AND GENOMIC MEDICINE Anisocytosis Moderate [facility] DEPARTMENT OF PATHOLOGY AND GENOMIC MEDICINE Ovalocytes Moderate [facility] DEPARTMENT OF PATHOLOGY AND GENOMIC MEDICINE Performing Organization Address City/[facility] Phone Number [facility] DEPARTMENT OF PATHOLOGY AND [address] [place] [address] [facility] Estimated GFR (11/17/2017 8:40 AM CDT) GFR Non Af Amer >90 mL/min/1.73 m2 [facility] DEPARTMENT OF PATHOLOGY AND GENOMIC MEDICINE GFR Af Amer >90 mL/min/1.73 m2 [facility] DEPARTMENT OF Comment: PATHOLOGY AND GENOMIC Chronic [...] specimen Performing Organization Address City/State/Zipcode Phone Number [facility] DEPARTMENT OF PATHOLOGY AND [address] [place] [address] [facility] Prothrombin time with INR (11/17/2017 8:40 AM CDT) Prothrombin time 16.1 (H) 12.0 - 15.0 sec [facility] DEPARTMENT OF PATHOLOGY AND GENOMIC MEDICINE INR 1.3 [facility] DEPARTMENT OF Comment: PATHOLOGY AND GENOMIC The International Normalized Ratio (INR) is a therapeutic MEDICINE monitoring tool for patients who are stable on oral anticoagulant therapy. An INR of 2.0-3.0 is suggested for deep vein thrombosis/pulmonary embolism. Specimen Blood Performing Organization Address City/State/Zipcode Phone Number [facility] DEPARTMENT OF PATHOLOGY AND [address] [place] [address] GENOMIC MEDICINE CBC with platelet and differential (11/17/2017 8:40 AM CDT) WBC 2.32 (L) 4.50 - 11.00 k/uL [facility] DEPARTMENT OF PATHOLOGY AND GENOMIC MEDICINE RBC 3.56 (L) 4.20 - 5.50 m/uL [facility] DEPARTMENT OF PATHOLOGY AND GENOMIC MEDICINE HGB 11.8 (L) 12.0 - 16.0 g/dL [facility] DEPARTMENT OF PATHOLOGY AND GENOMIC MEDICINE HCT 34.9 (L) 37.0 - 47.0 % [facility] DEPARTMENT OF PATHOLOGY AND GENOMIC MEDICINE MCV 98.0 82.0 - 100.0 fL [facility] DEPARTMENT OF PATHOLOGY AND GENOMIC MEDICINE MCH 33.1 27.0 - 34.0 pg [facility] DEPARTMENT OF PATHOLOGY AND GENOMIC MEDICINE MCHC 33.8 31.0 - 37.0 g/dL [facility] DEPARTMENT OF PATHOLOGY AND GENOMIC MEDICINE RDW - SD 61.6 (H) 37.0 - 55.0 fL [facility] DEPARTMENT OF PATHOLOGY AND GENOMIC MEDICINE MPV 9.9 8.8 - 13.2 fL [facility] DEPARTMENT OF PATHOLOGY AND GENOMIC MEDICINE Platelet count 43 (L) 150 - 400 k/uL [facility] DEPARTMENT OF PATHOLOGY AND GENOMIC MEDICINE Nucleated RBC 0.00 /100 WBC [facility] DEPARTMENT OF PATHOLOGY AND GENOMIC MEDICINE Neutrophils 59.1 39.0 - 69.0 % [facility] DEPARTMENT OF PATHOLOGY AND GENOMIC MEDICINE Lymphocytes 25.4 25.0 - 45.0 % [facility] DEPARTMENT OF PATHOLOGY AND GENOMIC MEDICINE Monocytes 11.2 (H) 0.0 - 10.0 % [facility] DEPARTMENT OF PATHOLOGY AND GENOMIC MEDICINE Eosinophils 3.9 0.0 - 5.0 % [facility] DEPARTMENT OF PATHOLOGY AND GENOMIC MEDICINE Basophils 0.4 0.0 - 1.0 % [facility] DEPARTMENT OF PATHOLOGY AND GENOMIC MEDICINE Immature granulocytes 0.0Comment: 0.0 - 1.0 % [facility] DEPARTMENT OF "Immature PATHOLOGY AND GENOMIC granulocytes" MEDICINE (promyelocytes, myelocytes, metamyelocytes) Specimen Blood Performing Organization Address City/State/Zipcode Phone Number [facility] DEPARTMENT OF PATHOLOGY AND [address] [place] [address] [facility] Hepatic function panel (11/17/2017 8:40 AM CDT) Albumin 3.2 (L) 3.5 - 5.0 g/dL [facility] DEPARTMENT OF PATHOLOGY AND GENOMIC MEDICINE Total bilirubin 2.8 (H) 0.0 - 1.2 mg/dL [facility] DEPARTMENT OF PATHOLOGY AND GENOMIC MEDICINE Bilirubin direct 0.9 (H) 0.0 - 0.3 mg/dL [facility] DEPARTMENT OF PATHOLOGY AND GENOMIC MEDICINE Alkaline phosphatase 140 (H) 35 - 104 U/L [facility] DEPARTMENT OF PATHOLOGY AND GENOMIC MEDICINE Protein 6.2 (L) 6.3 - 8.3 g/dL [facility] DEPARTMENT OF Comment: PATHOLOGY AND GENOMIC 4.6-7.0 g/dL MEDICINE 1 week 4.4-7.6 g/dL 7 months-1year5.1-7.3 g/dL 1-2 years5.6-7.5 g/dL >3 years6.0-8.0 g/dL 18-150 6.3-8.3 g/dL ALT 53 (H) 5 - 50 U/L [facility] DEPARTMENT OF PATHOLOGY AND GENOMIC MEDICINE AST 55 (H) 10 - 35 U/L [facility] DEPARTMENT OF PATHOLOGY AND GENOMIC MEDICINE Specimen Plasma specimen Performing Organization Address City/State/Zipcode Phone Number [facility] DEPARTMENT OF PATHOLOGY AND [address] [place] [id number] GENOMIC MEDICINE Basic metabolic panel (11/17/2017 8:40 AM CDT) Sodium 143 135 - 148 mEq/L [facility] DEPARTMENT OF PATHOLOGY AND GENOMIC MEDICINE Potassium 3.9 3.5 - 5.0 mEq/L [facility] DEPARTMENT OF PATHOLOGY AND GENOMIC MEDICINE Chloride 108 98 - 112 mEq/L [facility] DEPARTMENT OF PATHOLOGY AND GENOMIC MEDICINE CO2 29 24 - 31 mEq/L [facility] DEPARTMENT OF PATHOLOGY AND GENOMIC MEDICINE Anion gap 6@ANIO (L) 7 - 15 mEq/L [facility] DEPARTMENT OF PATHOLOGY AND GENOMIC MEDICINE BUN 10 6 - 20 mg/dL [facility] DEPARTMENT OF PATHOLOGY AND GENOMIC MEDICINE Creatinine 0.6 0.5 - 0.9 mg/dL [facility] DEPARTMENT OF PATHOLOGY AND GENOMIC MEDICINE Glucose 114 (H) 65 - 99 mg/dL [facility] DEPARTMENT OF PATHOLOGY AND GENOMIC MEDICINE Calcium 8.7 8.3 - 10.2 mg/dL [facility] DEPARTMENT OF PATHOLOGY AND GENOMIC MEDICINE Specimen Plasma specimen Performing Organization Address City/State/Zipcode Phone Number [facility] DEPARTMENT OF PATHOLOGY AND [address] [place] [address] GENOMIC MEDICINE after 06/13/2017 Insurance Payer Benefit Plan / Group Subscriber ID Type Phone Address BCBS BCBS CHOICE PPO/[employer]ER[employer] EMPL PPO xxxxxxxxxxxx PPO MULTIPLAN ALLIED/PHCS-MULTIPLAN xxxxxxxxx PPO Advance Directives Patient has advance care planning documents on file. For more information, please contact:Nishant Chaidez[address] [place] [address]
[2018-06-14] MEDS ORDERED: METHYLPREDNISOLONE 125 MG INJ ONE (05:42)
[2018-06-14] MEDS ORDERED: IPRATROPIUM BROM 0.5MG/2.5ML ONE (05:42)
[2018-06-14] MEDS ORDERED: NA CHLORIDE 0.9% 250 ML ONE (05:43)
[2018-06-14] MEDS ORDERED: LEVALBUTEROL 1.25 MG/3 ML NEB ONE ×2 (05:43→07:43)
[2018-06-14] MEDS ORDERED: NA CHLORIDE 0.9% 1,000 ML ONE (05:43)
[2018-06-14] MEDS ORDERED: AZITHROMYCIN 500 MG INJ IVPB ONE (05:43)
[2018-06-14] MEDS ORDERED: FAMOTIDINE 20 MG/2 ML VIAL IV ONE (05:43)
[2018-06-14] MEDS ORDERED: CEFTRIAXONE/SWI 1gm 1 GM/10 ML SYR ONE (05:43)
[2018-06-14 05:51] LABS: Absolute Lymphocytes (CBC) 0.7 K/uL (0.7-4.9); Absolute Monocytes 0.3 K/uL (0.1-1.3); Basophils % 0.9 % (0-1.3); Eosinophils % 5.9 % (0-4.4); Hematocrit 34.4 % (36.0-45.0); Lymphocytes % 32.1 % (15.3-44.8); MPV 8.8 fL (7.6-11.3); Monocytes % 12.9 % (3.3-12.3); RBC Red Blood Cell Count 3.68 M/uL (3.86-4.86)
[2018-06-14 05:59] LABS: Protime INR 1.26
[2018-06-14 06:03] LABS: ALT/SGPT 46 U/L (12-78); AST/SGOT 53 U/L (15-37); Albumin 2.9 g/dL (3.4-5.0); Alkaline Phosphatase 124 U/L (45-117); BUN Blood Urea Nitrogen 8 mg/dL (7-18); Bicarbonate 25 mmol/L (21-32); Bilirubin Direct 0.7 mg/dL (0-0.2); Bilirubin Total 1.8 mg/dL (0.2-1.0); Glucose Level 134 mg/dL (74-106); NT PRO-BNP 11 pg/mL (<125); Potassium 3.6 mmol/L (3.5-5.1); Protein, Total 6.4 g/dL (6.4-8.2); Sodium Level 144 mmol/L (136-145); Troponin (Emerg Dept Use Only) < 0.02 ng/mL (0.0-0.045)
[2018-06-14 06:04] LABS: Lipase 319 U/L (73-393); Magnesium 1.8 mg/dL (1.8-2.4)
[2018-06-14 07:09] LABS: Blood Morphology Comment NOT SEEN (NOT SEEN); Platelet Estimate DECR; Urine White Blood Cell Casts OK
--- NOTE | 2018-06-14 07:18 | EDPHYS ---
Physician Documentation [facility] Name: Zenaida Goss Age: 58 yrs Sex: Female : 1960 Arrival Date: 06/14/2018 Time: 05:03 Bed 4 Private MD: Madhu Albarado R ED Physician Homero Terrell HPI: 06/14 05:26 This 58 yrs old Female presents to ER via Ambulatory with complaints of vicente Breathing Difficulty, Chest Tightness, Cough, Congestion. 05:26 The patient has shortness of breath at rest, with light activity. Onset: The vicente symptoms/episode began/occurred 1 day(s) ago. Duration: The symptoms are continuous, and are unchanged since they started. The patient's shortness of breath has no apparent modifying factors. Associated signs and symptoms: The patient has no apparent associated signs or symptoms. Severity of symptoms: At their worst the symptoms were mild moderate in the emergency department the symptoms are unchanged. The patient has not experienced similar symptoms in the past. Historical: - Allergies: 05:21 Morphine (Anaphylaxis); ea - Home Meds: 05:21 None [Active]; ea - PMHx: 05:21 Anemia; Cirrhosis; fatty liver; Pancreatitis; varices; ea - PSHx: 05:21 lumpectomy right breast; Appendectomy; Cholecystectomy; ea - Immunization history:: Adult Immunizations up to date. - Social history:: Smoking status: Patient/guardian denies using tobacco. - Ebola Screening: : No symptoms or risks identified at this time. - Family history:: not pertinent. ROS: 05:26 Constitutional: Negative for fever, chills, and weight loss, Eyes: Negative for injury, vicente pain, redness, and discharge, ENT: Negative for injury, pain, and discharge, Neck: Negative for injury, pain, and swelling, Cardiovascular: Negative for chest pain, palpitations, and edema, Abdomen/GI: Negative for abdominal pain, nausea, vomiting, diarrhea, and constipation, Back: Negative for injury and pain, : Negative for injury, bleeding, discharge, and swelling, MS/Extremity: Negative for injury and deformity, Skin: Negative for injury, rash, and discoloration, Neuro: Negative for headache, weakness, numbness, tingling, and seizure. 05:26 Respiratory: Positive for cough, shortness of breath, wheezing, inspiratory, expiratory. Exam: 05:26 Constitutional: This is a well developed, well nourished patient who is awake, alert, vicente and in no acute distress. Head/Face: Normocephalic, atraumatic. Eyes: Pupils equal round and reactive to light, extra-ocular motions intact. Lids and lashes normal. Conjunctiva and sclera are non-icteric and not injected. Cornea within normal limits. Periorbital areas with no swelling, redness, or edema. ENT: Nares patent. No nasal discharge, no septal abnormalities noted. Tympanic membranes are normal and external auditory canals are clear. Oropharynx with no redness, swelling, or masses, exudates, or evidence of obstruction, uvula midline. Mucous membranes moist. Neck: Trachea midline, no thyromegaly or masses palpated, and no cervical lymphadenopathy. Supple, full range of motion without nuchal rigidity, or vertebral point tenderness. No Meningismus. Chest/axilla: Normal chest wall appearance and motion. Nontender with no deformity. No lesions are appreciated. Cardiovascular: Regular rate and rhythm with a normal S1 and S2. No gallops, murmurs, or rubs. Normal PMI, no JVD. No pulse deficits. Abdomen/GI: Soft, non-tender, with normal bowel sounds. No distension or tympany. No guarding or rebound. No evidence of tenderness throughout. Back: No spinal tenderness. No costovertebral tenderness. Full range of motion. Skin: Warm, dry with normal turgor. Normal color with no rashes, no lesions, and no evidence of cellulitis. MS/ Extremity: Pulses equal, no cyanosis. Neurovascular intact. Full, normal range of motion. Neuro: Awake and alert, GCS 15, oriented to person, place, time, and situation. Cranial nerves II-XII grossly intact. Motor strength 5/5 in all extremities. Sensory grossly intact. Cerebellar exam normal. Normal gait. Psych: Awake, alert, with orientation to person, place and time. Behavior, mood, and affect are within normal limits. 05:26 Respiratory: mild respiratory distress is noted, Respirations: labored breathing, that is moderate, Breath sounds: bronchial sounds, rhonchi, wheezing: inspiratory expiratory Vital Signs: 05:25 Pulse 87; Resp 20; Temp 98.2(O); Pulse Ox 98% on R/A; Weight 113.4 kg; Height 5 ft. 3 ea in. (160.02 cm); 06:20 BP 120 / 51; Pulse 87; Resp 23; Pulse Ox 97% on R/A; tl2 07:25 BP 111 / 42; Pulse 86; Resp 22 S; Temp 98.6(O); Pulse Ox 98% on R/A; Pain 8/10; aa5 08:15 BP 126 / 62; Pulse 93; Resp 18 S; Pulse Ox 96% on R/A; Pain 6/10; aa5 09:00 BP 133 / 61; Pulse 95; Resp 20 S; Pulse Ox 98% on R/A; Pain 6/10; aa5 05:25 Body Mass Index 44.29 (113.40 kg, 160.02 cm) MDM: 05:14 Patient medically screened. [facility] 05:30 Data reviewed: vital signs, nurses notes, lab test result(s), EKG, radiologic studies, vicente plain films. 06/14 05:25 Order name: Basic Metabolic Panel [facility] 06/14 05:25 Order name: CBC with Diff [facility] 06/14 05:25 Order name: LFT's [facility] 06/14 05:25 Order name: Magnesium [facility] 06/14 05:25 Order name: NT PRO-BNP [facility] 06/14 05:25 Order name: PT-INR [facility] 06/14 05:25 Order name: Troponin (emerg Dept Use Only); Complete Time: 07:10 [facility] 06/14 05:25 Order name: Lipase; Complete Time: 07:10 [facility] 06/14 05:25 Order name: Blood Culture Adult (2) [facility] 06/14 05:25 Order name: AMMONIA; Complete Time: 07:10 [facility] 06/14 05:25 Order name: Influenza Screen (a \T\ B); Complete Time: 07:10 [facility] 06/14 05:25 Order name: Procalcitonin; Complete Time: 07:10 [facility] 06/14 05:27 Order name: Basic Metabolic Panel; Complete Time: 07:10 [facility] 06/14 05:27 Order name: CBC with Automated Diff; Complete Time: 07:10 [facility] 06/14 05:25 Order name: XRAY Chest (1 view); Complete Time: 10:05 [facility] 06/14 05:27 Order name: Liver (Hepatic) Function; Complete Time: 07:10 EDMS 06/14 05:27 Order name: Magnesium; Complete Time: 07:10 EDMS 06/14 05:27 Order name: NT PRO-BNP; Complete Time: 07:10 EDMS 06/14 05:27 Order name: Protime (+INR); Complete Time: 07:10 EDMS 06/14 05:54 Order name: CBC Smear Scan; Complete Time: 07:10 EDMS 06/14 07:18 Order name: CT Chest For PE Angio [facility] 06/14 08:09 Order name: CT; Complete Time: 10:05 EDMS 06/14 05:25 Order name: EKG; Complete Time: 05:27 [facility] 06/14 05:25 Order name: Cardiac monitoring; Complete Time: 05:37 [facility] 06/14 05:25 Order name: EKG - Nurse/Tech; Complete Time: 05:37 [facility] 06/14 05:25 Order name: IV Saline Lock; Complete Time: 05:37 [facility] 06/14 05:25 Order name: Labs collected and sent; Complete Time: 05:37 [facility] 06/14 05:25 Order name: O2 Per Protocol; Complete Time: 05:37 [facility] 06/14 05:25 Order name: O2 Sat Monitoring; Complete Time: 05:37 [facility] Administered Medications: 05:30 Drug: Xopenex 2.5 mg Route: Inhalation; ea 05:30 Drug: AtroVENT Aerosol 0.5 mg Route: Inhalation; ea 05:35 Drug: NS 0.9% 1000 ml Route: IV; Rate: 75 ml/hr; Site: left antecubital; ea 10:05 Follow up: IV Status: Infusion continued upon admission aa5 05:35 Drug: Rocephin - (cefTRIAXone) 1 grams Route: IVPB; Infused Over: 30 mins; Site: left ea antecubital; 05:53 Follow up: Response: No adverse reaction; IV Status: Completed infusion; IV Intake: ea 10ml ; Medication administered IVP per pharmacy protocol 05:40 Drug: Pepcid 20 mg Route: IVP; Site: left antecubital; ea 05:45 Drug: Zithromax 500 mg Route: IVPB; Infused Over: 1 hrs; Site: left antecubital; ea 07:00 Follow up: Response: No adverse reaction; IV Status: Completed infusion aa5 05:50 Drug: SOLU-Medrol 125 mg Route: IVP; Site: left antecubital; ea 07:15 Drug: Lactulose 30 grams Volume: 45 ml; Route: PO; aa5 08:15 Follow up: Response: No adverse reaction aa5 07:15 Drug: Tamiflu 75 mg Route: PO; aa5 08:15 Follow up: Response: No adverse reaction aa5 07:15 Drug: Aspirin 162 mg Route: PO; aa5 08:15 Follow up: Response: No adverse reaction aa5 07:18 CANCELLED (Duplicate Order): Aspirin 162 mg PO once vicente 07:28 Drug: Zofran 4 mg Route: IVP; Site: left antecubital; aa5 08:00 Follow up: Response: Nausea is decreased bp 07:30 Drug: Demerol 25 mg Route: IVP; Site: left antecubital; aa5 08:01 Follow up: Response: Pain is decreased bp 08:00 Drug: Xopenex 1.25 mg Route: Inhalation; bp 08:15 Follow up: Response: Wheezing diminished aa5 Disposition: 06/14/18 07:17 Hospitalization ordered by Madhu Albarado for Observation. Preliminary diagnosis are Dyspnea, unspecified, Unspecified cirrhosis of liver, Influenza due to certain identified influenza viruses - FLU B. - Bed requested for Telemetry/MedSurg (observation). - Status is Observation. iw - Condition is Stable. - Problem is new. - Symptoms have improved. UTI on Admission? No Signatures: Dispatcher [employer] EDMS Homero Terrell MD MD cha Williams, Irene, RN Isaias Tate em1 Aline Jimenes RN RN aa5 Connie Mak RN RN ea Peltier, Brian RN RN bp Corrections: (The following items were deleted from the chart) 07:18 07:15 Aspirin 162 mg PO once ordered. vicente vicente 08:14 07:17 Hospitalization Ordered by Madhu Albarado MD for Observation. Preliminary diagnosis em1 is Dyspnea, unspecified; Unspecified cirrhosis of liver; Influenza due to certain identified influenza viruses - FLU B. Bed requested for Telemetry/MedSurg (observation). Status is Observation. Condition is Stable. Problem is new. Symptoms have improved. UTI on Admission? No. vicente 10:10 08:14 06/14/2018 07:17 Hospitalization Ordered by Madhu Albarado MD for Observation. iw Preliminary diagnosis is Dyspnea, unspecified; Unspecified cirrhosis of liver; Influenza due to certain identified influenza viruses - FLU B. Bed requested for Telemetry/MedSurg (observation). Status is Observation. Condition is Stable. Problem is new. Symptoms have improved. UTI on Admission? No. em1
--- NOTE | 2018-06-14 07:18 | ER ---
Nurse's Notes [facility] Name: Zenaida Goss Age: 58 yrs Sex: Female : 1960 Arrival Date: 06/14/2018 Time: 05:03 Bed 4 Private MD: Madhu Albarado R Diagnosis: Dyspnea, unspecified;Unspecified cirrhosis of liver;Influenza due to certain identified influenza viruses-FLU B Presentation: 06/14 05:16 Presenting complaint: Patient states: Pt complaining of dry non productive cough and ea chest tightness that started yesterday. Pt denies fever. Reports bloody mucus from nose. Transition of care: patient was not received from another setting of care. Onset of symptoms was June 14, 2018. Risk Assessment: Do you want to hurt yourself or someone else? Patient reports no desire to harm self or others. Initial Sepsis Screen: Does the patient meet any 2 criteria? No. Patient's initial sepsis screen is negative. Does the patient have a suspected source of infection? Yes: Other: non productive cough and congesion. Care prior to arrival: None. 05:16 Method Of Arrival: Ambulatory ea 05:16 Acuity: TANK 3 ea Triage Assessment: 05:23 General: Appears uncomfortable, Behavior is calm, cooperative, appropriate for age. ea Pain: Denies pain. EENT: Parent/caregiver reports the patient having nasal congestion since yesterday. Neuro: Level of Consciousness is awake, alert, obeys commands, Oriented to person, place, time, situation. Cardiovascular: Heart tones S1 S2 present Patient's skin is warm and dry. Respiratory: Reports cough that is non-productive, hacking, persistent Breath sounds with rhonchi bilaterally. Breath sounds with wheezes bilaterally. Onset: The symptoms/episode began/occurred yesterday, the patient has moderate shortness of breath. GI: No signs and/or symptoms were reported involving the gastrointestinal system. : No signs and/or symptoms were reported regarding the genitourinary system. Derm: Skin is pink, warm \T\ dry. Historical: - Allergies: 05:21 Morphine (Anaphylaxis); ea - Home Meds: 05:21 None [Active]; ea - PMHx: 05:21 Anemia; Cirrhosis; fatty liver; Pancreatitis; varices; ea - PSHx: 05:21 lumpectomy right breast; Appendectomy; Cholecystectomy; ea - Immunization history:: Adult Immunizations up to date. - Social history:: Smoking status: Patient/guardian denies using tobacco. - Ebola Screening: : No symptoms or risks identified at this time. - Family history:: not pertinent. Screenin:20 Abuse screen: Denies threats or abuse. Nutritional screening: No deficits noted. ea Tuberculosis screening: No symptoms or risk factors identified. Fall Risk None identified. Assessment: 05:16 Reassessment: see triage assessment. ea 06:44 Reassessment: Patient and/or family updated on plan of care and expected duration. Pain ea level reassessed. Patient is alert, oriented x 3, equal unlabored respirations, skin warm/dry/pink. 07:05 General: Appears comfortable, Behavior is calm, cooperative. Pain: Complains of pain in aa5 mid-sternal area Pain currently is 8 out of 10 on a pain scale. Quality of pain is described as pressure, Pain began 2-3 days ago. Is continuous. Neuro: Level of Consciousness is awake, alert, obeys commands, Oriented to person, place, time, situation. Cardiovascular: Heart tones S1 S2 present Rhythm is sinus rhythm. Respiratory: Reports shortness of breath cough Airway is patent Respiratory effort is even, unlabored, Respiratory pattern is regular, symmetrical, Breath sounds with wheezes bilaterally. GI: Abdomen is round non-distended, Bowel sounds present X 4 quads. Abd is soft and non tender X 4 quads. Reports nausea, Patient currently denies vomiting. : No signs and/or symptoms were reported regarding the genitourinary system. EENT: No signs and/or symptoms were reported regarding the EENT system. Derm: Skin is pink, warm \T\ dry. Musculoskeletal: Range of motion: intact in all extremities. 07:36 Reassessment: Pt taken to CT via stretcher. . aa5 08:15 Reassessment: Patient is alert, oriented x 3, equal unlabored respirations, skin aa5 warm/dry/pink. Patient states feeling better. Wheezing diminished bilaterally . 08:15 Pain: Pain currently is 6 out of 10 on a pain scale. aa5 08:55 Reassessment: Patient is alert, oriented x 3, equal unlabored respirations, skin aa5 warm/dry/pink. Unsuccessful attempt to call report to admitting nurse at this time. Will attempt again later. Pt was notified of wait time, pt verbalizes understanding. . 10:05 Reassessment: Patient is alert, oriented x 3, equal unlabored respirations, skin aa5 warm/dry/pink. 10:05 Cardiovascular: Rhythm is sinus rhythm. aa5 Vital Signs: 05:25 Pulse 87; Resp 20; Temp 98.2(O); Pulse Ox 98% on R/A; Weight 113.4 kg; Height 5 ft. 3 ea in. (160.02 cm); 06:20 BP 120 / 51; Pulse 87; Resp 23; Pulse Ox 97% on R/A; tl2 07:25 BP 111 / 42; Pulse 86; Resp 22 S; Temp 98.6(O); Pulse Ox 98% on R/A; Pain 8/10; aa5 08:15 BP 126 / 62; Pulse 93; Resp 18 S; Pulse Ox 96% on R/A; Pain 6/10; aa5 09:00 BP 133 / 61; Pulse 95; Resp 20 S; Pulse Ox 98% on R/A; Pain 6/10; aa5 05:25 Body Mass Index 44.29 (113.40 kg, 160.02 cm) ea ED Course: 05:03 Patient arrived in ED. am2 05:04 Madhu Albarado MD is Private Physician. am2 05:14 Homero Terrell MD is Attending Physician. [facility] 05:19 Triage completed. ea 05:19 Patient has correct armband on for positive identification. Placed in gown. Bed in low ea position. Call light in reach. Side rails up X2. 05:22 Arm band placed on right wrist. Patient placed in an exam room, on a stretcher, on ea monitor tech, on pulse oximetry. EKG completed in triage. Results shown to MD. 05:30 Inserted saline lock: 22 gauge in left antecubital area, using aseptic technique. Blood tl2 collected. 05:55 Connie Mak RN is Primary Nurse. ea 06:14 X-ray completed. Portable x-ray completed in exam room. Patient tolerated procedure kw well. 06:15 XRAY Chest (1 view) In Process Unspecified. EDMS 07:00 Report received from ERIC Rosales and ERIC Delarosa. aa5 07:16 Madhu Albarado MD is Hospitalizing Provider. vicente 07:49 CT completed. Patient tolerated procedure well. Patient moved to CT via stretcher. jg6 Patient moved back from CT. 08:37 No provider procedures requiring assistance completed. aa5 10:05 Patient admitted, IV remains in place. aa5 Administered Medications: 05:30 Drug: Xopenex 2.5 mg Route: Inhalation; ea 05:30 Drug: AtroVENT Aerosol 0.5 mg Route: Inhalation; ea 05:35 Drug: NS 0.9% 1000 ml Route: IV; Rate: 75 ml/hr; Site: left antecubital; ea 10:05 Follow up: IV Status: Infusion continued upon admission aa5 05:35 Drug: Rocephin - (cefTRIAXone) 1 grams Route: IVPB; Infused Over: 30 mins; Site: left ea antecubital; 05:53 Follow up: Response: No adverse reaction; IV Status: Completed infusion; IV Intake: ea 10ml ; Medication administered IVP per pharmacy protocol 05:40 Drug: Pepcid 20 mg Route: IVP; Site: left antecubital; ea 05:45 Drug: Zithromax 500 mg Route: IVPB; Infused Over: 1 hrs; Site: left antecubital; ea 07:00 Follow up: Response: No adverse reaction; IV Status: Completed infusion aa5 05:50 Drug: SOLU-Medrol 125 mg Route: IVP; Site: left antecubital; ea 07:15 Drug: Lactulose 30 grams Volume: 45 ml; Route: PO; aa5 08:15 Follow up: Response: No adverse reaction aa5 07:15 Drug: Tamiflu 75 mg Route: PO; aa5 08:15 Follow up: Response: No adverse reaction aa5 07:15 Drug: Aspirin 162 mg Route: PO; aa5 08:15 Follow up: Response: No adverse reaction aa5 07:18 CANCELLED (Duplicate Order): Aspirin 162 mg PO once vicente 07:28 Drug: Zofran 4 mg Route: IVP; Site: left antecubital; aa5 08:00 Follow up: Response: Nausea is decreased bp 07:30 Drug: Demerol 25 mg Route: IVP; Site: left antecubital; aa5 08:01 Follow up: Response: Pain is decreased bp 08:00 Drug: Xopenex 1.25 mg Route: Inhalation; bp 08:15 Follow up: Response: Wheezing diminished wilian Intake: 05:53 IV: 10ml; Total: 10ml. samy Outcome: 07:17 Decision to Hospitalize by Provider. vicente 10:05 Admitted to Tele accompanied by tech, via wheelchair, with chart, Report called to wilian Funk RN 10:05 Condition: stable 10:05 Instructed on the need for admit, Demonstrated understanding of instructions. 10:10 Patient left the ED. iw Signatures: Dispatcher [employer] EDMN Homreo Terrell MD MD cha Williams, Irene, RN RN Aline Valdez, RN RN Brooklynn Gordillo Taylor, RN RN [email or web address] Rere Guerrero Elena RN RN Zev Seaman, RN RN Chante Farooq
[2018-06-14] MEDS ORDERED: LACTULOSE 20 GM/30 ML UCUP ONE (07:29)
[2018-06-14] MEDS ORDERED: ASPIRIN 81 MG CHEWABLE TABLET ONE (07:29)
[2018-06-14] MEDS ORDERED: OSELTAMIVIR 75 MG CAP ONE (07:29)
[2018-06-14] MEDS ORDERED: ONDANSETRON 4 MG/2 ML VIAL ONE (07:43)
[2018-06-14] MEDS ORDERED: MEPERIDINE HCL 25 MG/0.5 ML ONE (07:43)
--- NOTE | 2018-06-14 08:08 | RAD REPORT ---
EXAM DESCRIPTION: CT - Chest For Pe Angio - 06/14/2018 7:49 am CLINICAL HISTORY: Chest pain. Chest pain;Cough;Dyspnea COMPARISON: Thorax Wo Con dated 07/28/2017; Abdomen Pelvis W Contrast dated 05/29/2018 TECHNIQUE: CT angiogram of the pulmonary arteries was performed with MIP. All CT scans are performed using dose optimization technique as appropriate and may include automated exposure control or mA/KV adjustment according to patient size. FINDINGS: No evidence of pulmonary thromboembolism. No acute aortic finding demonstrated. Mild interstitial pulmonary edema is present bilaterally. No significant pericardial or pleural fluid. No concerning bony finding. Mild liver cirrhosis and splenomegaly noted in the upper abdomen. 3 cm aneurysm of the splenic artery is suspected, partially visualized. IMPRESSION: No evidence of pulmonary thromboembolism. Mild interstitial pulmonary edema.
--- NOTE | 2018-06-14 08:31 | RAD REPORT ---
EXAM DESCRIPTION: RAD - Chest Single View - 06/14/2018 6:26 am CLINICAL HISTORY: Cough;Congestion;Chest pain Chest pain. COMPARISON: Chest Pa And Lat (2 Views) dated 05/31/2018; Chest Single View dated 07/27/2017; Chest Sin gle View dated 07/25/2017; Chest Pa And Lat (2 Views) dated 04/29/2017 FINDINGS: Portable technique limits examination quality. The lungs are underinflated results in vascular crowding. No focal infiltrate suspected. The heart is normal in size. No displaced fractures. IMPRESSION: Underinflated lungs.
[2018-06-14] MEDS ORDERED: PANTOPRAZOLE 40MG TABLET PO SCH (09:00)
[2018-06-14] MEDS ORDERED: LACTULOSE 20 GM/30 ML UCUP PO SCH (09:00)
[2018-06-14] MEDS ORDERED: ALBUTEROL 2.5 MG/3 ML NEB SOL NEB PRN (11:33)
[2018-06-14] MEDS ORDERED: ACETAMINOPHEN 500 MG TAB PO PRN (11:33)
[2018-06-14] MEDS: MEPERIDINE HCL 25 MG/0.5 ML IV PRN ×3 (11:54→23:50)
--- NOTE | 2018-06-14 12:35 | EKG ---
Test Date: 2018-06-14 Test Time: 05:12:36 8Th Grade Teacher: MARILYN MEASUREMENT RESULTS: Intervals: Rate: 90 NC: 142 QRSD: 100 QT: 396 QTc: 484 [place]: P: 38 NC: 142 QRS: 46 T: 18 INTERPRETIVE STATEMENTS: Normal sinus rhythm Prolonged QT Abnormal ECG Compared to ECG 07/28/2017 00:16:46 No significant changes Electronically Signed On 06-14-18 12:34:11 UNIFIED COMMUNICATIONS ARCHITECT by Fabrizio Joe
[2018-06-14] MEDS: ONDANSETRON 4 MG/2 ML VIAL IV PRN ×3 (12:37→23:50)
[2018-06-14 15:06] VITALS: BMI 44.2
[2018-06-14] MEDS ORDERED: METHYLPREDNISOLONE 40 MG INJ IV SCH (17:00)
[2018-06-14] MEDS: LACTULOSE 20 GM/30 ML UCUP PO SCH ×2 (17:18→23:50)
[2018-06-14] MEDS: FAMOTIDINE 20 MG/2 ML VIAL IV SCH (21:52)
[2018-06-14] MEDS: OSELTAMIVIR 75 MG CAP PO SCH (21:52)
--- NOTE | 2018-06-15 00:41 | HP ---
Date of Admission: 06/14/2018 Chief Complaint: Wheezing and coughing. History Of Present Illness: A 58-year-old female was brought to the office because of wheezing and s hortness of breath. The patient had evaluation done. She was positive for influenza B. Patient, be cause of continued wheezing, is admitted for observation. There is no history of fever, chills, or r igors. Past Medical History: Past medical history is extensive, includes history of breast cancer, for whic h she had chemo and surgery; gastric polyps; cirrhosis of the liver, secondary to fatty liver. She h as thrombocytopenia, leukopenia, and anemia secondary to her cirrhotic process. Family History: Noncontributory. Personal History: She is allergic to morphine. Home Medicines: Please refer to the chart. Review of Systems: The patient denied any fever, chills, rigors. Physical Examination: General: Revealed a 58-year-old female with [id number] audible wheezing. Vital Signs: Temperature normal. HEENT: Congested throat. Neck: Supple. JVD negative. Chest: Scattered wheezes. Heart: Regular. Abdomen: Pendulous, nontender. Extremities: No edema. Laboratory Data: White count normal. Platelet count low at 69. Assessment: 1.Flu syndrome. 2.Asthmatic bronchitis. 3.Cirrhosis of the liver with leukopenia, thrombocytopenia, and anemia. Plan: The patient is started on breathing treatments as well as IV antibiotic which will be continue d. She will be re-evaluated tomorrow. NOVA/DWAYNE Voice ID: [id number]
[2018-06-15 02:15] LABS: Absolute Lymphocytes (CBC) 0.6 K/uL (0.7-4.9); Absolute Monocytes 0.5 K/uL (0.1-1.3); Absolute Neutrophil 5.7 K/uL (1.8-8.0); Basophils % 0.1 % (0-1.3); Eosinophils % 0.2 % (0-4.4); Hematocrit 34.7 % (36.0-45.0); Lymphocytes % 8.7 % (15.3-44.8); MPV 8.8 fL (7.6-11.3); Monocytes % 6.9 % (3.3-12.3); RBC Red Blood Cell Count 3.68 M/uL (3.86-4.86)
[2018-06-15 02:27] LABS: ALT/SGPT 47 U/L (12-78); AST/SGOT 40 U/L (15-37); Alkaline Phosphatase 122 U/L (45-117); BUN Blood Urea Nitrogen 10 mg/dL (7-18); Bicarbonate 25 mmol/L (21-32); Bilirubin Total 1.4 mg/dL (0.2-1.0); Glucose Level 125 mg/dL (74-106); Potassium 4.6 mmol/L (3.5-5.1); Protein, Total 6.5 g/dL (6.4-8.2); Sodium Level 143 mmol/L (136-145)
[2018-06-15] MEDS: MEPERIDINE HCL 25 MG/0.5 ML IV PRN ×3 (05:57→18:47)
[2018-06-15] MEDS: AZITHROMYCIN IV 500 MG in NA CHLORIDE 0.9% 250 ML IVPB SCH (05:57)
[2018-06-15] MEDS ORDERED: CEFTRIAXONE/SWI 1gm 1 GM/10 ML SYR IV SCH (06:00)
[2018-06-15] MEDS: ONDANSETRON 4 MG/2 ML VIAL IV PRN ×3 (06:01→18:47)
--- NOTE | 2018-06-15 07:59 | RAD REPORT ---
EXAM DESCRIPTION: RAD - Chest Single View - 06/15/2018 6:49 am CLINICAL HISTORY: Chest pain COMPARISON: June 14 TECHNIQUE: AP portable chest image was obtained 0641 hours . FINDINGS: Lung volumes remain low. No new consolidations seen. Lung markings are not substantially d ifferent from comparison. A minimal amount of edema or infiltrate could be present. Heart and vascula ture are normal. No measurable pleural effusion and no pneumothorax. No acute bony abnormality seen. No acute aortic findings suspected. IMPRESSION: Shallow inspiration exam with prominent interstitial markings. Pattern is not substantially different from prior day study.
[2018-06-15] MEDS: ALBUTEROL 2.5 MG/3 ML NEB SOL NEB SCH ×3 (09:25→20:00)
[2018-06-15] MEDS: IPRATROPIUM BROM 0.5MG/2.5ML NEB PRN (09:25)
[2018-06-15] MEDS: OSELTAMIVIR 75 MG CAP PO SCH ×2 (10:46→22:27)
[2018-06-15] MEDS: FAMOTIDINE 20 MG/2 ML VIAL IV SCH ×2 (10:46→22:27)
[2018-06-15] MEDS: LACTULOSE 20 GM/30 ML UCUP PO SCH ×2 (10:47→17:19)
[2018-06-15] MEDS: predniSONE 20 MG TAB PO SCH ×2 (10:47→22:27)
[2018-06-15 13:18] LABS: Urine Appearance CLEAR; Urine Bilirubin NEGATIVE (NEG); Urine Blood NEGATIVE (NEG); Urine Color DK YELLOW; Urine Glucose NEGATIVE (NEG); Urine Protein NEGATIVE (NEG); Urine Specific Gravity >=1.030 (1.005-1.030)
[2018-06-15 13:38] LABS: Urine Bacteria <20 /HPF (<20); Urine Culture Reflex Order NOT NEEDED; Urine Mucus 1+ /HPF (NONE SEEN); Urine RBC <5 /HPF (NONE SEEN)
[2018-06-15] MEDS ORDERED: GUAIFENESIN/CODEINE 5ML UCUP PO PRN ×3 (20:00→21:18)
[2018-06-16] MEDS: LACTULOSE 20 GM/30 ML UCUP PO SCH ×3 (01:06→17:40)
--- NOTE | 2018-06-16 01:10 | PN ---
The patient is doing better, but she still has considerable wheezing. Her sputum is scanty. The pat ient will be rechecked and if she is stable, she may even be discharged tomorrow on oral medications including oral prednisone which was started today. NOVA/DWAYNE Voice ID: [id number] Report ID: [id number]
[2018-06-16] MEDS: ALBUTEROL 2.5 MG/3 ML NEB SOL NEB SCH ×4 (01:45→20:00)
[2018-06-16] MEDS: IPRATROPIUM BROM 0.5MG/2.5ML NEB PRN (01:45)
[2018-06-16] MEDS: AZITHROMYCIN IV 500 MG in NA CHLORIDE 0.9% 250 ML IVPB SCH (05:11)
[2018-06-16] MEDS: predniSONE 20 MG TAB PO SCH ×2 (08:03→20:44)
[2018-06-16] MEDS: FAMOTIDINE 20 MG/2 ML VIAL IV SCH ×2 (08:03→20:45)
[2018-06-16] MEDS: OSELTAMIVIR 75 MG CAP PO SCH ×2 (08:04→20:44)
[2018-06-16] MEDS: GUAIFENESIN/CODEINE 5ML UCUP PO PRN ×3 (12:27→23:05)
[2018-06-16 17:19] VITALS: O2SAT 96
[2018-06-16] MEDS ORDERED: HYDROCODONE/APAP 5/325 MG TAB PO PRN (22:00)
[2018-06-17] MEDS: LACTULOSE 20 GM/30 ML UCUP PO SCH ×2 (00:54→09:31)
--- NOTE | 2018-06-17 01:59 | PN ---
The patient still has considerable wheezing. She is on breathing treatments, oral steroids. She is, however, afebrile. The patient will be rechecked tomorrow to see whether she can be discharged on o ral steroids, and continue inhalation treatments at home. NOVA/DWAYNE Voice ID: [id number] Report ID: [id number]
[2018-06-17] MEDS: ALBUTEROL 2.5 MG/3 ML NEB SOL NEB SCH (02:00)
[2018-06-17] MEDS: AZITHROMYCIN IV 500 MG in NA CHLORIDE 0.9% 250 ML IVPB SCH (05:26)
[2018-06-17 09:01] VITALS: BP 103/44; TEMP 97.7
[2018-06-17] MEDS: FAMOTIDINE 20 MG/2 ML VIAL IV SCH (09:31)
[2018-06-17] MEDS: predniSONE 20 MG TAB PO SCH (09:31)
[2018-06-17] MEDS: OSELTAMIVIR 75 MG CAP PO SCH (09:31)
[2018-06-17] MEDS: GUAIFENESIN/CODEINE 5ML UCUP PO PRN (10:17)
== END 2018-06-17 10:45 | disposition home or self-care (01) | DRG 195 ==
LOC: ER 05:02 → ERHOLD 07:19 → INTOOBSV 07:19 → 4TH 10:00 → OBSVTOIN 06-15 06:19
PROVIDERS: ADMIT Internal Medicine; ATTEND Internal Medicine
DX: J10.1 Influenza due to other identified influenza virus with other respiratory manifestations (principal); K74.60 Unspecified cirrhosis of liver; D72.819 Decreased white blood cell count, unspecified; D69.6 Thrombocytopenia, unspecified; D64.9 Anemia, unspecified; J45.998 Other asthma; Z85.3 Personal history of malignant neoplasm of breast; K76.0 Fatty (change of) liver, not elsewhere classified
CPT/HCPCS: 36415; 71045; 71275; 80048; 80053; 80076; 81001; 82140; 83605; 83690; 83735; 83880; 84145; 84484; 85025; 85610; 87040; 87804; 93005; 94640; 94760; 96361; 96365; 96375; 99285; G0378; J0456; J0696; J2175; J2405; J2920; J2930; J7030; J7512; Q9967

== ENCOUNTER 2018-06-28 16:12 | Emergency (ER) | payer OTHER ==
--- OUTSIDE RECORDS SUMMARY | 2018-06-28 16:14 | XMS REPORT | Clinical Summary ---
:1960 Author Organization [facility] Address [address] [place] [address] Care Team Providers Name Role Phone Madhu Miranda MD Primary Care Provider Allergies Not on File Medications Not on file Active Problems Not on file Encounters Date Type Specialty Care Team Description 11/17/2017 Lab Lab Dre Mayer MD Blood loss anemia (Primary Dx); Cirrhosis of liver without ascites, unspecified hepatic cirrhosis type; Esophageal varices without bleeding, unspecified esophageal varices type after 06/27/2017 Social History Tobacco Use Types Packs/Day Years [...] without bleeding, unspecified esophageal varices type after 06/27/2017 Results Smear review (11/17/2017 8:40 AM CDT) Platelet slide review Mkd decreased (A) [facility] DEPARTMENT OF PATHOLOGY AND GENOMIC MEDICINE Anisocytosis Moderate [facility] OF PATHOLOGY AND GENOMIC MEDICINE Ovalocytes Moderate [facility] DEPART[facility] OF PATHOLOGY AND GENOMIC MEDICINE Performing Organization Address City[facility] Phone Number [facility] DEPART[facility] OF PATHOLOGY AND [address] [place] [address] [employer] MEDICINE Estimated GFR (11/17/2017 8:40 AM CDT) GFR Non Af Amer >90 mL/min/1.[address] [facility] DEPARTMENT OF PATHOLOGY AND GENOMIC MEDICINE GFR Af Amer >90 mL/min/1.[address] [facility] DEPARTMENT OF Comment: PATHOLOGY AND GENOMIC [...] specimen Performing Organization Address City/State/Zipcode Phone Number [facility] DEPARTMENT OF PATHOLOGY AND [address] [place] [address] [employer] [facility] Prothrombin time with INR (11/17/2017 8:40 AM CDT) Prothrombin time 16.1 (H) 12.0 - 15.[address] [facility] DEPARTMENT OF PATHOLOGY AND GENOMIC MEDICINE INR 1.3 [facility] DEPARTMENT OF Comment: PATHOLOGY AND GENOMIC The International Normalized Ratio (INR) is a therapeutic MEDICINE monitoring tool for patients who are stable on oral anticoagulant therapy. An INR of 2.0-3.0 is suggested for deep vein thrombosis/pulmonary embolism. Specimen Blood Performing Organization Address City/State/Zipcode Phone Number [facility] DEPARTMENT OF PATHOLOGY AND [address] [place] [address] GENOMIC MEDICINE CBC with platelet and differential (11/17/2017 8:40 AM CDT) WBC 2.32 (L) 4.50 - 11.00 k/uL [facility] DEPARTMENT OF PATHOLOGY AND GENOMIC MEDICINE RBC 3.56 (L) 4.20 - 5.50 m/uL [facility] DEPARTMENT OF PATHOLOGY AND GENOMIC MEDICINE HGB 11.8 (L) 12.0 - 16.0 g/dL [facility] DEPARTMENT OF PATHOLOGY AND GENOMIC MEDICINE HCT 34.9 (L) 37.0 - 47.0 % [facility] DEPARTMENT OF PATHOLOGY AND GENOMIC MEDICINE MCV 98.0 82.0 - 100.[address] [facility] DEPARTMENT OF PATHOLOGY AND GENOMIC MEDICINE MCH 33.1 27.0 - 34.[address] [facility] DEPARTMENT OF PATHOLOGY AND GENOMIC MEDICINE MCHC 33.8 31.0 - 37.0 g/dL [facility] DEPARTMENT OF PATHOLOGY AND GENOMIC MEDICINE RDW - SD 61.6 (H) 37.0 - 55.[address] [facility] DEPARTMENT OF PATHOLOGY AND GENOMIC MEDICINE MPV 9.9 8.8 - 13.[address] [facility] DEPARTMENT OF PATHOLOGY AND GENOMIC MEDICINE Platelet count 43 (L) 150 - 400 k/uL [facility] DEPARTMENT OF PATHOLOGY AND GENOMIC MEDICINE Nucleated RBC 0.00 /[address] [facility] DEPARTMENT OF PATHOLOGY AND GENOMIC MEDICINE Neutrophils 59.1 39.0 - 69.0 % [facility] DEPARTMENT OF PATHOLOGY AND GENOMIC MEDICINE Lymphocytes 25.4 25.0 - 45.0 % [facility] DEPARTMENT OF PATHOLOGY AND GENOMIC MEDICINE Monocytes 11.2 (H) 0.0 - 10.0 % [facility] DEPARTMENT OF PATHOLOGY AND GENOMIC MEDICINE Eosinophils 3.9 0.0 - 5.0 % [facility] DEPARTMENT OF PATHOLOGY AND GENOMIC MEDICINE Basophils 0.4 0.0 - 1.0 % [facility] DEPARTMENT OF PATHOLOGY AND GENOMIC MEDICINE Immature granulocytes 0.0Comment: 0.0 - 1.0 % [facility] DEPARTMENT OF "Immature PATHOLOGY AND GENOMIC granulocytes" MEDICINE (promyelocytes, myelocytes, metamyelocytes) Specimen Blood Performing Organization Address City/State/Zipcode Phone Number [facility] DEPARTMENT OF PATHOLOGY AND [address] [facility] [place] [address] [employer] MEDICINE Hepatic function panel (11/17/2017 8:40 AM CDT) Albumin 3.2 (L) 3.5 - 5.0 g/dL [facility] DEPARTMENT OF PATHOLOGY AND GENOMIC MEDICINE Total bilirubin 2.8 (H) 0.0 - 1.2 mg/dL [facility] DEPARTMENT OF PATHOLOGY AND GENOMIC MEDICINE Bilirubin direct 0.9 (H) 0.0 - 0.3 mg/dL [facility] DEPARTMENT OF PATHOLOGY AND GENOMIC MEDICINE Alkaline phosphatase 140 (H) 35 - 104 U/L [facility] DEPARTMENT OF PATHOLOGY AND GENOMIC MEDICINE Protein 6.2 (L) 6.3 - 8.3 g/dL [facility] DEPARTMENT OF Comment: PATHOLOGY AND GENOMIC [place] 4.6-7.0 g/dL MEDICINE 1 week 4.4-7.6 g/dL 7 months-1year5.1-7.3 g/dL 1-2 years5.6-7.5 g/dL >3 years6.0-8.0 g/dL 18-150 6.3-8.3 g/dL ALT 53 (H) 5 - 50 U/L [facility] DEPARTMENT OF PATHOLOGY AND GENOMIC MEDICINE AST 55 (H) 10 - 35 U/L [facility] DEPARTMENT OF PATHOLOGY AND GENOMIC MEDICINE Specimen Plasma specimen Performing Organization Address City/State/Zipcode Phone Number [facility] DEPARTMENT OF PATHOLOGY AND [address] [place] [phone] GENOMIC MEDICINE Basic metabolic panel (11/17/2017 8:40 AM CDT) Sodium 143 135 - 148 mEq/L [facility] DEPARTMENT OF PATHOLOGY AND GENOMIC MEDICINE Potassium 3.9 3.5 - 5.0 mEq/L [facility] DEPARTMENT OF PATHOLOGY AND GENOMIC MEDICINE Chloride 108 98 - 112 mEq/L [facility] DEPARTMENT OF PATHOLOGY AND GENOMIC MEDICINE CO2 29 24 - 31 mEq/L [facility] DEPARTMENT OF PATHOLOGY AND GENOMIC MEDICINE Anion gap 6@ANIO (L) 7 - 15 mEq/L [facility] DEPARTMENT OF PATHOLOGY AND GENOMIC MEDICINE BUN 10 6 - 20 mg/dL [facility] DEPARTMENT OF PATHOLOGY AND GENOMIC MEDICINE Creatinine 0.6 0.5 - 0.9 mg/dL [facility] DEPARTMENT OF PATHOLOGY AND GENOMIC MEDICINE Glucose 114 (H) 65 - 99 mg/dL [facility] DEPARTMENT OF PATHOLOGY AND GENOMIC MEDICINE Calcium 8.7 8.3 - 10.2 mg/dL [facility] DEPARTMENT OF PATHOLOGY AND GENOMIC MEDICINE Specimen Plasma specimen Performing Organization Address City/State/Zipcode Phone Number [facility] DEPARTMENT OF PATHOLOGY AND [address] [place] [address] GENOMIC MEDICINE after 06/27/2017 Insurance Payer Benefit Plan / Group Subscriber ID Type Phone Address BCBS BCBS CHOICE PPO/FEDERAL EMPL PPO xxxxxxxxxxxx PPO MULTIPLAN ALLIED/PHCS-MULTIPLAN xxxxxxxxx PPO Advance Directives Patient has advance care planning documents on file. For more information, please contact:Nishant [id number] [place] [address]
--- OUTSIDE RECORDS SUMMARY | 2018-06-28 16:14 | XMS REPORT | Clinical Summary ---
:1960 Author Organization [facility] Address [address] [place] [address] Care Team Providers Name Role Phone Madhu [...] Not on file Results Not on fileafter 06/27/2017 Insurance Payer Benefit Plan / Subscriber ID Type Phone Address Group BLUE CROSS/BLUE BCBS ADV HMO xxxxxxxxxxxx [phone] [address] [place] [address] PHCS - PRIVATE PHCS PPO/POS xxxxxxxxx PPO [facility] [place] [address]
--- OUTSIDE RECORDS SUMMARY | 2018-06-28 16:14 | XMS REPORT ---
:1960 [facility] Address [address] [place] [address] Dr. Clay [address] [place] [address] Care Team Providers Name Role Phone ALEXA [...] (JEFFERY) (test 8.6 g/dL 12.0-15.0 TESTED AT [facility] [address] [facility] [id number]) [facility] [id number]
--- NOTE | 2018-06-28 16:55 | RAD REPORT ---
EXAM DESCRIPTION: RAD - Chest Pa And Lat (2 Views) - 06/28/2018 4:47 pm CLINICAL HISTORY: Cough;SOB Chest pain. COMPARISON: Chest Single View dated 06/15/2018; Chest Single View dated 06/14/2018; Chest Pa And Lat (2 Views) dated 05/31/2018; Chest Single View dated 07/27/2017 FINDINGS: Emphysematous changes are present with linear opacities in both lung bases, likely represe nting subsegmental atelectasis. Interstitial markings are present bilaterally most compatible with a viral pneumonitis or chronic bronchitis. The heart is upper limit of normal in size. No displaced fra ctures.
[2018-06-28 17:20] LABS: Arterial Blood Carboxyhemoglob 1.3 % (0-1.5); Blood Gas Oxyhemoglobin 94.1 % (94-97); Blood O2 Saturation 96.3 % (92-98.5)
[2018-06-28 17:22] LABS: Absolute Lymphocytes (CBC) 0.8 K/uL (0.7-4.9); Absolute Monocytes 0.4 K/uL (0.1-1.3); Absolute Neutrophil 2.3 K/uL (1.8-8.0); Basophils % 0.8 % (0-1.3); Eosinophils % 2.7 % (0-4.4); Hematocrit 34.9 % (36.0-45.0); Lymphocytes % 22.2 % (15.3-44.8); Monocytes % 11.3 % (3.3-12.3); RBC Red Blood Cell Count 3.72 M/uL (3.86-4.86)
[2018-06-28 17:23] LABS: Protime INR 1.21
[2018-06-28 17:38] LABS: ALT/SGPT 59 U/L (12-78); AST/SGOT 48 U/L (15-37); Alkaline Phosphatase 149 U/L (45-117); BUN Blood Urea Nitrogen 9 mg/dL (7-18); Bicarbonate 28 mmol/L (21-32); Bilirubin Direct 0.6 mg/dL (0-0.2); Bilirubin Total 1.6 mg/dL (0.2-1.0); Glucose Level 114 mg/dL (74-106); Magnesium 1.9 mg/dL (1.8-2.4); NT PRO-BNP 8 pg/mL (<125); Potassium 3.7 mmol/L (3.5-5.1); Protein, Total 6.5 g/dL (6.4-8.2); Sodium Level 143 mmol/L (136-145); Troponin (Emerg Dept Use Only) < 0.02 ng/mL (0.0-0.045)
--- NOTE | 2018-06-28 17:42 | ER ---
Nurse's Notes [facility] Name: Zenaida Goss Age: 58 yrs Sex: Female : 1960 Arrival Date: 06/28/2018 Time: 16:15 Bed 14 Private MD: Madhu Albarado R Diagnosis: Bronchitis, not specified as acute or chronic;Malaise and fatigue;Hyperventilation Presentation: 06/28 16:16 Presenting complaint: Patient states: increasing cough x 2 weeks, dyspnea, chest sv tightness, right upper back pain with cough. Stated that she was admitted with the flu over 2 weeks ago. Transition of care: patient was not received from another setting of care. Onset of symptoms was June 2017. Care prior to arrival: None. 16:16 Method Of Arrival: Ambulatory sv 16:16 Acuity: TANK 3 sv 16:20 Risk Assessment: Do you want to hurt yourself or someone else? Patient reports no bp desire to harm self or others. Initial Sepsis Screen: Does the patient meet any 2 criteria? No. Patient's initial sepsis screen is negative. Does the patient have a suspected source of infection? No. Patient's initial sepsis screen is negative. Triage Assessment: 16:20 General: Appears in no apparent distress. comfortable, obese, Behavior is cooperative, bp appropriate for age, anxious. Pain: Complains of pain in back. Respiratory: Reports shortness of breath cough that is Onset: The symptoms/episode began/occurred at an unknown time. the patient has mild shortness of breath. Historical: - Allergies: 16:18 Morphine (Anaphylaxis); sv - PMHx: 16:18 Anemia; Cirrhosis; fatty liver; Pancreatitis; varices; sv - PSHx: 16:18 lumpectomy right breast; Appendectomy; Cholecystectomy; sv - Immunization history:: Adult Immunizations up to date. - Social history:: Smoking status: Patient/guardian denies using tobacco. - Ebola Screening: : Patient negative for fever greater than or equal to 101.5 degrees Fahrenheit, and additional compatible Ebola Virus Disease symptoms Patient denies exposure to infectious person Patient denies travel to an Ebola-affected area in the 21 days before illness onset No symptoms or risks identified at this time. Screenin:20 Abuse screen: Denies threats or abuse. Denies injuries from another. Nutritional bp screening: No deficits noted. Tuberculosis screening: No symptoms or risk factors identified. Fall Risk None identified. Assessment: 16:20 General: Appears in no apparent distress. comfortable, Behavior is cooperative, bp appropriate for age, anxious. Pain: Complains of pain in back. Neuro: Level of Consciousness is awake, alert, obeys commands, Oriented to person, place, time, situation, Appropriate for age. Cardiovascular: Rhythm is regular. Respiratory: Airway is patent Respiratory effort is even, unlabored, Respiratory pattern is Breath sounds are coarse bilaterally. GI: No deficits noted. : No signs and/or symptoms were reported regarding the genitourinary system. EENT: No deficits noted. Derm: No deficits noted. Musculoskeletal: Circulation, motion, and sensation intact. 18:12 Reassessment: PT D/C HOME AMBULATORY WITH FAMILY, DX WITH BRONCHITIS. bp Vital Signs: 16:18 BP 161 / 80; Pulse 69; Resp 26; Temp 98.6(O); Pulse Ox 96% ; Weight 113.4 kg; Height 5 sv ft. 3 in. (160.02 cm); Pain 10/10; 18:14 BP 145 / 53; Pulse 93; Resp 18; Pulse Ox 97% ; bp 16:18 Body Mass Index 44.29 (113.40 kg, 160.02 cm) sv ED Course: 16:15 Patient arrived in ED. mr 16:15 Madhu Albarado MD is Private Physician. mr 16:17 Triage completed. sv 16:18 Arm band placed on. sv 16:20 Patient has correct armband on for positive identification. Bed in low position. Call bp light in reach. Side rails up X2. Adult w/ patient. 16:28 Iqra Vela FNP-C is PHCP. snw 16:28 Homero Terrell MD is Attending Physician. snw 16:38 Zev Burrell, ERIC is Primary Nurse. bp 16:42 EKG done, by automotive service technician. reviewed by Iqra CRAWFORD. sm3 16:47 Chest Pa And Lat (2 Views) XRAY In Process Unspecified. EDMS 17:40 Madhu Albarado MD is Referral Physician. snw 18:12 No provider procedures requiring assistance completed. IV discontinued, intact, bp bleeding controlled, No redness/swelling at site. Pressure dressing applied. Administered Medications: 18:12 Drug: Tussionex Pennkinetic ER 5 ml Route: PO; bp 18:12 Follow up: Response: Medication administered at discharge. bp Outcome: 17:41 Discharge ordered by . snw 18:13 Discharged to home ambulatory, with family. bp 18:13 Condition: stable 18:13 Discharge instructions given to patient, Instructed on discharge instructions, follow up and referral plans. Demonstrated understanding of instructions, follow-up care. 18:15 Patient left the ED. bp Signatures: Dispatcher [employer] Katherine Tinajero, RN RN Iqra Carbone, COLOR SPECIALIST-C COLOR SPECIALIST-Csnw Olivia Chase Brian, RN RN Yenny Joyner [facility]
--- NOTE | 2018-06-28 17:42 | EDPHYS ---
Physician Documentation [facility] Name: Zenaida Goss Age: 58 yrs Sex: Female : 1960 Arrival Date: 06/28/2018 Time: 16:15 Bed 14 Private MD: Madhu Albarado R ED Physician Homero Terrell HPI: 06/28 16:37 This 58 yrs old Female presents to ER via Ambulatory with complaints of Cough, snw Breathing Difficulty. 16:37 The patient or guardian reports airway noise, cough, difficulty breathing, flu snw symptoms, hoarse voice, hyperventilation. Onset: The symptoms/episode began/occurred gradually, 2 week(s) ago, and became persistent. Severity of symptoms: At their worst the symptoms were moderate. Associated signs and symptoms: The patient has no apparent associated signs or symptoms. It is unknown whether or not the patient has had similar symptoms in the past. 2 weeks ago with Influenza. Sees Dr. Albarado. Historical: - Allergies: 16:18 Morphine (Anaphylaxis); sv - PMHx: 16:18 Anemia; Cirrhosis; fatty liver; Pancreatitis; varices; sv - PSHx: 16:18 lumpectomy right breast; Appendectomy; Cholecystectomy; sv - Immunization history:: Adult Immunizations up to date. - Social history:: Smoking status: Patient/guardian denies using tobacco. - Ebola Screening: : Patient negative for fever greater than or equal to 101.5 degrees Fahrenheit, and additional compatible Ebola Virus Disease symptoms Patient denies exposure to infectious person Patient denies travel to an Ebola-affected area in the 21 days before illness onset No symptoms or risks identified at this time. ROS: 16:36 Constitutional: Negative for fever, chills, and weight loss, Eyes: Negative for injury, snw pain, redness, and discharge, ENT: Negative for injury, pain, and discharge, Neck: Negative for injury, pain, and swelling, Cardiovascular: Negative for chest pain, palpitations, and edema, Abdomen/GI: Negative for abdominal pain, nausea, vomiting, diarrhea, and constipation, Back: Negative for injury. C/o severe upper back pain : Negative for injury, bleeding, discharge, and swelling, MS/Extremity: Negative for injury and deformity, Skin: Negative for injury, rash, and discoloration, Neuro: Negative for headache, weakness, numbness, tingling, and seizure. 16:36 Respiratory: Positive for cough, shortness of breath, wheezing. Exam: 16:35 Head/Face: Normocephalic, atraumatic. Eyes: Pupils equal round and reactive to light, snw extra-ocular motions intact. Lids and lashes normal. Conjunctiva and sclera are non-icteric and not injected. Cornea within normal limits. Periorbital areas with no swelling, redness, or edema. ENT: Nares patent. No nasal discharge, no septal abnormalities noted. Tympanic membranes are normal and external auditory canals are clear. Oropharynx with no redness, swelling, or masses, exudates, or evidence of obstruction, uvula midline. Mucous membranes moist. Neck: Trachea midline, no thyromegaly or masses palpated, and no cervical lymphadenopathy. Supple, full range of motion without nuchal rigidity, or vertebral point tenderness. No Meningismus. Chest/axilla: Normal chest wall appearance and motion. Nontender with no deformity. No lesions are appreciated. Cardiovascular: Regular rate and rhythm with a normal S1 and S2. No gallops, murmurs, or rubs. Normal PMI, no JVD. No pulse deficits. 16:35 Back: No spinal tenderness. No costovertebral tenderness. Full range of motion. Skin: Warm, dry with normal turgor. Normal color with no rashes, no lesions, and no evidence of cellulitis. MS/ Extremity: Pulses equal, no cyanosis. Neurovascular intact. Full, normal range of motion. Neuro: Awake and alert, GCS 15, oriented to person, place, time, and situation. Cranial nerves II-XII grossly intact. Motor strength 5/5 in all extremities. Sensory grossly intact. Cerebellar exam normal. Normal gait. 16:35 Constitutional: The patient appears alert, awake, anxious, obese, restless. 16:35 Respiratory: the patient does not display signs of respiratory distress, Respirations: nasal flaring, shallow respirations, tachypnea, that is moderate, hyperventilation, Breath sounds: are clear throughout. 16:35 Abdomen/GI: Inspection: obese Bowel sounds: normal, Palpation: abdomen is soft and non-tender. Vital Signs: 16:18 BP 161 / 80; Pulse 69; Resp 26; Temp 98.6(O); Pulse Ox 96% ; Weight 113.4 kg; Height 5 sv ft. 3 in. (160.02 cm); Pain 10/10; 18:14 BP 145 / 53; Pulse 93; Resp 18; Pulse Ox 97% ; bp 16:18 Body Mass Index 44.29 (113.40 kg, 160.02 cm) sv MDM: 16:35 Patient medically screened. vicente 17:51 Data reviewed: vital signs, nurses notes. Data interpreted: Pulse oximetry: on room air snw is 96 %. Interpretation: acceptable. Counseling: I had a detailed discussion with the patient and/or guardian regarding: the historical points, exam findings, and any diagnostic results supporting the discharge/admit diagnosis, lab results, radiology results, the need for outpatient follow up, to return to the emergency department if symptoms worsen or persist or if there are any questions or concerns that arise at home. Special discussion: I have referred the patient to see his PCP for further evaluation of high blood pressure. Based on the history and exam findings, there is no indication for further emergent testing or inpatient evaluation. I discussed with the patient/guardian the need to see the primary care provider for further evaluation of the symptoms. 06/28 16:33 Order name: ABG; Complete Time: 17:39 snw 06/28 16:33 Order name: Basic Metabolic Panel; Complete Time: 17:39 snw 06/28 16:33 Order name: CBC with Diff; Complete Time: 17:33 snw 06/28 16:33 Order name: LFT's; Complete Time: 17:39 snw 06/28 16:33 Order name: Magnesium; Complete Time: 17:39 snw 06/28 16:33 Order name: NT PRO-BNP; Complete Time: 17:39 snw 06/28 16:29 Order name: Chest Pa And Lat (2 Views) XRAY; Complete Time: 16:58 snw 06/28 16:33 Order name: PT-INR; Complete Time: 17:50 snw 06/28 16:33 Order name: Troponin (emerg Dept Use Only); Complete Time: 17:39 snw 06/28 16:33 Order name: EKG; Complete Time: 16:34 snw 06/28 16:33 Order name: Cardiac monitoring; Complete Time: 16:39 snw 06/28 16:33 Order name: EKG - Nurse/Tech; Complete Time: 16:39 snw 06/28 16:33 Order name: IV Saline Lock; Complete Time: 17:25 snw 06/28 16:33 Order name: Labs collected and sent; Complete Time: 17:25 snw 06/28 16:33 Order name: O2 Per Protocol; Complete Time: 16:40 snw 06/28 16:33 Order name: O2 Sat Monitoring; Complete Time: 16:40 snw Administered Medications: 18:12 Drug: Tussionex Pennkinetic ER 5 ml Route: PO; bp 18:12 Follow up: Response: Medication administered at discharge. bp Disposition: 06/29 08:22 Co-signature as Attending Physician, Homero Terrell MD I agree with the assessment and vicente plan of care. Disposition: 06/28/18 17:41 Discharged to Home. Impression: Bronchitis, not specified as acute or chronic, Malaise and fatigue, Hyperventilation. - Condition is Stable. - Discharge Instructions: Acute Bronchitis, Adult, Hypertension, Hyperventilation, Cool Mist Vaporizer, Fatigue, Cough, Adult. - Medication Reconciliation Form, Thank You Letter, Antibiotic Education, Prescription Opioid Use form. - Follow up: Madhu Albarado MD; When: Tomorrow; Reason: Recheck today's complaints, Continuance of care, Re-evaluation by your physician. Follow up: Emergency Department; When: As needed; Reason: Worsening of condition. Signatures: Dispatcher [employer] Katherine Tinajero RN RN sv Anderson, Corey, MD MD cha Therrien, Shelly, CLINICAL SOCIAL WORK THERAPIST-C CLINICAL SOCIAL WORK THERAPIST-Csnw Zev Burrell RN RN bp Corrections: (The following items were deleted from the chart) 06/28 18:15 17:41 06/28/2018 17:41 Discharged to Home. Impression: Bronchitis, not specified as bp acute or chronic; Malaise and fatigue; Hyperventilation. Condition is Stable. Forms are Medication Reconciliation Form, Thank You Letter, Antibiotic Education, Prescription Opioid Use. Follow up: Madhu Albarado; When: Tomorrow; Reason: Recheck today's complaints, Continuance of care, Re-evaluation by your physician. Follow up: Emergency Department; When: As needed; Reason: Worsening of condition. snw
[2018-06-28] MEDS ORDERED: HYDROCODONE/CHLORPHEN 5 ML/OSYR ONE (18:19)
[2018-06-28 18:43] VITALS: TEMP 98.6
[2018-06-28 18:46] VITALS: BP 145/53; O2SAT 97
--- NOTE | 2018-06-29 05:58 | EKG ---
Test Date: 2018-06-28 Test Time: 16:34:28 [employer] Processor: CELENA MEASUREMENT RESULTS: Intervals: Rate: 93 GA: 142 QRSD: 94 QT: 402 QTc: 499 [place]: P: 34 GA: 142 QRS: 47 T: 47 INTERPRETIVE STATEMENTS: Normal sinus rhythm Prolonged QT Abnormal ECG Compared to ECG 06/14/2018 05:12:36 No significant changes Electronically Signed On 06-29-18 05:57:46 CDT by Fabrizio Joe
== END 2018-06-28 18:15 | disposition home or self-care (01) ==
LOC: ER 16:12
DX: J40 Bronchitis, not specified as acute or chronic (principal); R06.4 Hyperventilation; R53.81 Other malaise; R53.83 Other fatigue; Z88.5 Allergy status to narcotic agent
CPT/HCPCS: 36415; 71046; 80048; 80076; 82805; 83735; 83880; 84484; 85025; 85610; 93005; 99283

== ENCOUNTER 2018-06-30 14:46 | Inpatient (IN) | payer OTHER ==
--- OUTSIDE RECORDS SUMMARY | 2018-06-30 15:06 | XMS REPORT | Clinical Summary ---
:1960 Author Organization [facility] Address [address] [place] [address] Care Team Providers Name Role Phone Madhu Miranda MD Primary Care Provider Allergies Not on File Medications Not on file Active Problems Not on file Encounters Date Type Specialty Care Team Description 11/17/2017 Lab Lab Dre Mayer MD Blood loss anemia (Primary Dx); Cirrhosis of liver without ascites, unspecified hepatic cirrhosis type; Esophageal varices without bleeding, unspecified esophageal varices type after 06/29/2017 Social History Tobacco Use Types Packs/Day Years [...] without bleeding, unspecified esophageal varices type after 06/29/2017 Results Smear review (11/17/2017 8:40 AM CDT) Platelet slide review Mkd decreased (A) [facility] DEPARTMENT OF PATHOLOGY AND GENOMIC MEDICINE Anisocytosis Moderate [facility] DEPARTMENT OF PATHOLOGY AND GENOMIC MEDICINE Ovalocytes Moderate [facility] DEPARTMENT OF PATHOLOGY AND GENOMIC MEDICINE Performing Organization Address City/[facility] Phone Number [facility] DEPARTMENT OF PATHOLOGY AND [address] [place] [address] [facility] Estimated GFR (11/17/2017 8:40 AM CDT) GFR Non Af Amer >90 mL/min/1.[address] [facility] DEPARTMENT OF PATHOLOGY AND GENOMIC MEDICINE GFR Af Amer >90 mL/min/1.[address] [facility] DEPARTMENT OF Comment: PATHOLOGY AND GENOMIC [...] specimen Performing Organization Address City/State/Zipcode Phone Number [facility] DEPARTMENT OF PATHOLOGY AND [address] [place] [address] [facility] Prothrombin time with INR (11/17/2017 8:40 AM CDT) Prothrombin time 16.1 (H) 12.0 - 15.[address] [facility] DEPARTMENT OF PATHOLOGY AND GENOMIC MEDICINE INR 1.[address] [facility] DEPARTMENT OF Comment: PATHOLOGY AND GENOMIC The International Normalized Ratio (INR) is a therapeutic MEDICINE monitoring tool for patients who are stable on oral anticoagulant therapy. An INR of 2.0-3.0 is suggested for deep vein thrombosis/pulmonary embolism. Specimen Blood Performing Organization Address City/State/Zipcode Phone Number [facility] DEPARTMENT OF PATHOLOGY AND [address] [place] [address] GENOMIC MEDICINE CBC with platelet and differential (11/17/2017 8:40 AM CDT) WBC 2.32 (L) 4.50 - 11.00 k/uL [facility] DEPARTMENT OF PATHOLOGY AND GENOMIC MEDICINE RBC 3.56 (L) 4.20 - 5.50 m/uL [facility] DEPARTMENT OF PATHOLOGY AND GENOMIC MEDICINE HGB 11.8 (L) 12.0 - 16.0 g/dL [facility] DEPARTMENT OF PATHOLOGY AND GENOMIC MEDICINE HCT 34.9 (L) 37.0 - 47.0 % [facility] DEPARTMENT OF PATHOLOGY AND GENOMIC MEDICINE MCV 98.0 82.0 - 100.[address] [facility] DEPARTMENT OF PATHOLOGY AND GENOMIC MEDICINE MCH 33.1 27.0 - 34.[address] [facility] DEPARTMENT OF PATHOLOGY AND GENOMIC MEDICINE MCHC 33.8 31.0 - 37.0 g/dL [facility] DEPARTMENT OF PATHOLOGY AND GENOMIC MEDICINE RDW - SD 61.6 (H) 37.0 - 55.[address] [facility] DEPARTMENT OF PATHOLOGY AND GENOMIC MEDICINE MPV 9.9 8.8 - 13.[address] [facility] DEPARTMENT OF PATHOLOGY AND GENOMIC MEDICINE Platelet count 43 (L) 150 - 400 k/uL [facility] DEPARTMENT OF PATHOLOGY AND GENOMIC MEDICINE Nucleated RBC 0.00 /[address] [facility] DEPARTMENT OF PATHOLOGY AND GENOMIC MEDICINE Neutrophils 59.1 39.0 - 69.0 % [facility] DEPARTMENT OF PATHOLOGY AND GENOMIC MEDICINE Lymphocytes 25.4 25.0 - 45.0 % [facility] DEPARTMENT OF PATHOLOGY AND GENOMIC MEDICINE Monocytes 11.2 (H) 0.0 - 10.0 % [facility] DEPARTMENT OF PATHOLOGY AND GENOMIC MEDICINE Eosinophils 3.9 0.0 - 5.0 % [facility] DEPARTMENT OF PATHOLOGY AND GENOMIC MEDICINE Basophils 0.4 0.0 - 1.0 % [facility] DEPARTMENT OF PATHOLOGY AND GENOMIC MEDICINE Immature granulocytes 0.0Comment: 0.0 - 1.0 % [facility] DEPARTMENT OF "Immature PATHOLOGY AND GENOMIC granulocytes" MEDICINE (promyelocytes, myelocytes, metamyelocytes) Specimen Blood Performing Organization Address City/State/Zipcode Phone Number [facility] DEPARTMENT OF PATHOLOGY AND [address] [place] [address] [facility] Hepatic function panel (11/17/2017 8:40 AM CDT) Albumin 3.2 (L) 3.5 - 5.0 g/dL [facility] DEPARTMENT OF PATHOLOGY AND GENOMIC MEDICINE Total bilirubin 2.8 (H) 0.0 - 1.2 mg/dL [facility] DEPARTMENT OF PATHOLOGY AND GENOMIC MEDICINE Bilirubin direct 0.9 (H) 0.0 - 0.3 mg/dL [facility] DEPARTMENT OF PATHOLOGY AND GENOMIC MEDICINE Alkaline phosphatase 140 (H) 35 - 104 U/L [facility] DEPARTMENT OF PATHOLOGY AND GENOMIC MEDICINE Protein 6.2 (L) 6.3 - 8.3 g/dL [facility] DEPARTMENT OF Comment: PATHOLOGY AND GENOMIC [place] 4.6-7.0 g/dL MEDICINE 1 week 4.4-7.6 g/dL 7 months-1year5.1-7.3 g/dL 1-2 years5.6-7.5 g/dL >3 years6.0-8.0 g/dL 18-150 6.3-8.3 g/dL ALT 53 (H) 5 - 50 U/L [facility] DEPARTMENT OF PATHOLOGY AND GENOMIC MEDICINE AST 55 (H) 10 - 35 U/L [facility] DEPARTMENT OF PATHOLOGY AND GENOMIC MEDICINE Specimen Plasma specimen Performing Organization Address City/State/Zipcode Phone Number [facility] DEPARTMENT OF PATHOLOGY AND [address] [place] [phone] GENOMIC MEDICINE Basic metabolic panel (11/17/2017 8:40 AM CDT) Sodium 143 135 - 148 mEq/L [facility] DEPARTMENT OF PATHOLOGY AND GENOMIC MEDICINE Potassium 3.9 3.5 - 5.0 mEq/L [facility] DEPARTMENT OF PATHOLOGY AND GENOMIC MEDICINE Chloride 108 98 - 112 mEq/L [facility] DEPARTMENT OF PATHOLOGY AND GENOMIC MEDICINE CO2 29 24 - 31 mEq/L [facility] DEPARTMENT OF PATHOLOGY AND GENOMIC MEDICINE Anion gap 6@ANIO (L) 7 - 15 mEq/L [facility] DEPARTMENT OF PATHOLOGY AND GENOMIC MEDICINE BUN 10 6 - 20 mg/dL [facility] DEPARTMENT OF PATHOLOGY AND GENOMIC MEDICINE Creatinine 0.6 0.5 - 0.9 mg/dL [facility] DEPARTMENT OF PATHOLOGY AND GENOMIC MEDICINE Glucose 114 (H) 65 - 99 mg/dL [facility] DEPARTMENT OF PATHOLOGY AND GENOMIC MEDICINE Calcium 8.7 8.3 - 10.2 mg/dL [facility] DEPARTMENT OF PATHOLOGY AND GENOMIC MEDICINE Specimen Plasma specimen Performing Organization Address City/State/Zipcode Phone Number [facility] DEPARTMENT OF PATHOLOGY AND [address] [place] [address] GENOMIC MEDICINE after 06/29/2017 Insurance Payer Benefit Plan / Group Subscriber ID Type Phone Address BCBS BCBS CHOICE PPO/FEDERAL EMPL PPO xxxxxxxxxxxx PPO MULTIPLAN ALLIED/PHCS-MULTIPLAN xxxxxxxxx PPO Advance Directives Patient has advance care planning documents on file. For more information, please contact:Nishant Chaidez[address] [place] [address]
--- OUTSIDE RECORDS SUMMARY | 2018-06-30 15:07 | XMS REPORT | Clinical Summary ---
:1960 Author Organization [facility] Address [address] [place] [address] Care Team Providers Name Role Phone Madhu [...] Not on file Results Not on fileafter 06/29/2017 Insurance Payer Benefit Plan / Subscriber ID Type Phone Address Group BLUE CROSS/BLUE BCBS ADV HMO xxxxxxxxxxxx [phone] [address] [place] [address] PHCS - PRIVATE PHCS PPO/POS xxxxxxxxx PPO [facility] [place] [address]
--- OUTSIDE RECORDS SUMMARY | 2018-06-30 15:07 | XMS REPORT ---
:1960 [facility] Address [address] [place] [address] Dr. Clay [address] [place] [id number] Care Team Providers Name Role Phone ALEXA [...] 8.6 g/dL 12.0-15.[address] [facility] [address] [facility] [id number]) [facility] [id number]
[2018-06-30 15:18] VITALS: BMI 44.2
[2018-06-30 15:51] LABS: Absolute Lymphocytes (CBC) 0.7 K/uL (0.7-4.9); Absolute Monocytes 0.4 K/uL (0.1-1.3); Basophils % 0.5 % (0-1.3); Eosinophils % 2.6 % (0-4.4); Hematocrit 34.4 % (36.0-45.0); Lymphocytes % 23.3 % (15.3-44.8); MPV 8.9 fL (7.6-11.3); Monocytes % 12.6 % (3.3-12.3); RBC Red Blood Cell Count 3.72 M/uL (3.86-4.86)
[2018-06-30] MEDS: GUAIFENESIN/CODEINE 5ML UCUP PO PRN ×2 (15:55→21:51)
[2018-06-30 16:04] LABS: ALT/SGPT 53 U/L (12-78); AST/SGOT 41 U/L (15-37); Alkaline Phosphatase 145 U/L (45-117); BUN Blood Urea Nitrogen 8 mg/dL (7-18); Bicarbonate 25 mmol/L (21-32); Bilirubin Total 1.9 mg/dL (0.2-1.0); Glucose Level 98 mg/dL (74-106); Potassium 3.7 mmol/L (3.5-5.1); Protein, Total 6.3 g/dL (6.4-8.2); Sodium Level 142 mmol/L (136-145)
[2018-06-30 16:53] LABS: Urine Appearance CLEAR; Urine Bilirubin NEGATIVE (NEG); Urine Blood NEGATIVE (NEG); Urine Color YELLOW; Urine Glucose NEGATIVE (NEG); Urine Protein NEGATIVE (NEG); Urine pH 7.5 (5.0-7.0)
[2018-06-30 17:05] LABS: Urine Microscopic Reflex NO UMIC
[2018-06-30] MEDS: MEPERIDINE HCL 25 MG/0.5 ML IV PRN ×2 (17:16→23:14)
[2018-06-30] MEDS: METHYLPREDNISOLONE 40 MG INJ IV SCH (17:16)
[2018-06-30] MEDS: Levofloxacin500mg IV 500 MG/100 ML BAG IV SCH (17:16)
[2018-06-30] MEDS: ONDANSETRON 4 MG/2 ML VIAL IV PRN ×2 (17:16→23:17)
[2018-06-30 18:49] LABS: Blood Morphology Comment NOT SEEN (NOT SEEN); Platelet Estimate DECR; Urine White Blood Cell Casts OK
[2018-06-30] MEDS: ALBUTEROL 2.5 MG/3 ML NEB SOL NEB SCH (21:02)
[2018-07-01] MEDS: METHYLPREDNISOLONE 40 MG INJ IV SCH ×3 (00:13→17:15)
[2018-07-01] MEDS: ALBUTEROL 2.5 MG/3 ML NEB SOL NEB SCH ×4 (03:18→19:40)
[2018-07-01] MEDS: GUAIFENESIN/CODEINE 5ML UCUP PO PRN ×3 (04:07→18:08)
[2018-07-01] MEDS: MEPERIDINE HCL 25 MG/0.5 ML IV PRN ×3 (05:02→18:46)
[2018-07-01] MEDS: ONDANSETRON 4 MG/2 ML VIAL IV PRN ×3 (05:02→18:46)
[2018-07-01] MEDS ORDERED: LACTULOSE 20 GM/30 ML UCUP PO ONE (07:54)
--- NOTE | 2018-07-01 08:19 | HP ---
Date of Admission: 06/30/2018 Chief Complaint: Continued wheezing and shortness of breath. History Of Present Illness: A 58-year-old female who was in the emergency room 2 days ago, was broug ht back to the office because of continued wheezing and shortness of breath. The patient was examine d and she had moderate to severe wheezing with dyspnea at rest. In view of this, a diagnosis of stat us asthmaticus was made. The patient is admitted for observation for IV steroid therapy. The patien t denied any chest pain, hemoptysis. Past Medical History: The patient is known to have history of cirrhosis, leukopenia, thrombocytopeni a, and anemia. The patient also has history of breast cancer, for which she had surgery in the past. Family History: Noncontributory. Personal History: She is allergic to morphine. Review of Systems: The patient denied any chest pain, hemoptysis. Physical Examination: General: Revealed a 58-year-old female. Vital Signs: Afebrile. HEENT: Congested throat. Neck: Supple. JVD negative. Chest: Bilateral wheezes and poor air entry. Heart: Mild tachycardia. Abdomen: Soft. Extremities: No edema. Laboratory: Total bilirubin 1.9, albumin 3.0. CBC; white count 3.2, hemoglobin 12.3, platelet count 57,000. Assessment: 1.Status asthmaticus. 2.Asthma. 3.Bronchitis. 4.Cirrhosis of the liver. 5.Status post breast surgery for breast cancer. Plan: The patient will be given IV steroids, breathing treatments. Her sputum is green in color. I V Levaquin will be given and she will be rechecked in 24 hours. NOVA/DWAYNE Voice ID: [id number]
[2018-07-01] MEDS: PANTOPRAZOLE 40MG TABLET PO SCH (10:06)
[2018-07-01] MEDS: Levofloxacin500mg IV 500 MG/100 ML BAG IV SCH (17:14)
[2018-07-02] MEDS: METHYLPREDNISOLONE 40 MG INJ IV SCH ×3 (00:23→17:09)
[2018-07-02] MEDS: GUAIFENESIN/CODEINE 5ML UCUP PO PRN ×3 (00:24→16:45)
[2018-07-02] MEDS: ALBUTEROL 2.5 MG/3 ML NEB SOL NEB SCH ×4 (01:00→19:28)
[2018-07-02] MEDS: ONDANSETRON 4 MG/2 ML VIAL IV PRN ×4 (01:55→22:36)
[2018-07-02] MEDS: MEPERIDINE HCL 25 MG/0.5 ML IV PRN ×4 (01:55→22:36)
[2018-07-02] MEDS: PANTOPRAZOLE 40MG TABLET PO SCH (06:27)
[2018-07-02] MEDS: Levofloxacin500mg IV 500 MG/100 ML BAG IV SCH (16:04)
--- NOTE | 2018-07-02 16:48 | PN ---
The patient continued to have wheezing. Even though, wheezing is much better today. Her lipase is n ormal. She still has scanty amount of greenish sputum. She is on IV steroids and IV Levaquin, which will be continued and she will be reexamined tomorrow to see whether she can go off IV steroids and go to oral medication. NOVA/DWAYNE Voice ID: [id number] Report ID: [id number]
[2018-07-02] MEDS ORDERED: LACTULOSE 20 GM/30 ML UCUP PO PRN (17:56)
[2018-07-02] MEDS ORDERED: LACTULOSE 20 GM/30 ML UCUP PO ONE (18:00)
[2018-07-03] MEDS: METHYLPREDNISOLONE 40 MG INJ IV SCH ×2 (00:36→09:24)
[2018-07-03] MEDS: GUAIFENESIN/CODEINE 5ML UCUP PO PRN ×2 (00:36→06:25)
[2018-07-03] MEDS: ALBUTEROL 2.5 MG/3 ML NEB SOL NEB SCH ×2 (01:55→07:30)
[2018-07-03] MEDS: MEPERIDINE HCL 25 MG/0.5 ML IV PRN (04:50)
[2018-07-03] MEDS: ONDANSETRON 4 MG/2 ML VIAL IV PRN (04:50)
[2018-07-03] MEDS: PANTOPRAZOLE 40MG TABLET PO SCH (06:26)
[2018-07-03 08:38] VITALS: BP 117/58; TEMP 97.6
[2018-07-03] MEDS ORDERED: LACTULOSE 20 GM/30 ML UCUP PO SCH (09:00)
[2018-07-03 09:51] VITALS: O2SAT 92
== END 2018-07-03 09:48 | disposition home or self-care (01) | DRG 203 ==
LOC: 4TH 15:04 → OBSVTOIN 07-02 15:51
PROVIDERS: ADMIT Internal Medicine; ATTEND Internal Medicine
DX: J45.902 Unspecified asthma with status asthmaticus (principal); J40 Bronchitis, not specified as acute or chronic; K74.60 Unspecified cirrhosis of liver; Z85.3 Personal history of malignant neoplasm of breast
CPT/HCPCS: 36415; 80053; 81003; 83690; 85025; 87086; 87088; 94640; G0378; J2175; J2405; J2920

== ENCOUNTER 2018-08-10 22:50 | Observation (INO) | payer OTHER ==
--- OUTSIDE RECORDS SUMMARY | 2018-08-10 22:53 | XMS REPORT ---
:1960 [facility] Address [address] [place] [address] Dr. Clay [address] [place] [address] Care Team Providers Name Role Phone ALEXA [...] [facility] [address] [facility] [id number]) [facility] [id number]
--- OUTSIDE RECORDS SUMMARY | 2018-08-10 22:53 | XMS REPORT | Clinical Summary ---
:1960 Author Organization [facility] Address [address] [place] [address] Care Team Providers Name Role Phone Madhu Miranda MD Primary Care Provider Allergies Not on File Medications Not on file Active Problems Not on file Encounters Date Type Specialty Care Team Description 11/17/2017 Lab Lab Dre Mayer MD Blood loss anemia (Primary Dx); Cirrhosis of liver without ascites, unspecified hepatic cirrhosis type; Esophageal varices without bleeding, unspecified esophageal varices type after 08/09/2017 Social History Tobacco Use Types Packs/Day Years [...] 2011 SHINGLES VACCINES (#1) 2011 INFLUENZA VACCINE 11/09/2018 Procedures Procedure Name Priority Date/Time Associated Diagnosis [...] without bleeding, unspecified esophageal varices type after 08/09/2017 Results Smear review (11/17/2017 8:40 AM CDT) Platelet slide review Mkd decreased (A) [facility] DEPARTMENT OF PATHOLOGY AND GENOMIC MEDICINE Anisocytosis Moderate [facility] DEPARTMENT OF PATHOLOGY AND GENOMIC MEDICINE Ovalocytes Moderate [facility] DEPARTMENT OF PATHOLOGY AND GENOMIC MEDICINE Performing Organization Address City/[facility] Phone Number [facility] DEPARTMENT OF PATHOLOGY AND [address] [place] [address] [facility] MEDICINE Estimated GFR (11/17/2017 8:40 AM CDT) GFR Non Af Amer >90 mL/min/1.[address] [facility] DEPARTMENT OF PATHOLOGY AND GENOMIC MEDICINE GFR Af Amer >90 mL/min/1.[address] [facility] DEPARTMENT OF Comment: PATHOLOGY AND GENOMIC [...] Performing Organization Address City/State/Zipcode Phone Number [facility] DEPARTMENT OF PATHOLOGY AND [address] [place] [address] [facility] Prothrombin time with INR (11/17/2017 8:40 AM CDT) Prothrombin time 16.1 (H) 12.0 - 15.[address] [facility] DEPARTMENT OF PATHOLOGY AND GENOMIC MEDICINE INR 1.3 [facility] DEPARTMENT OF Comment: PATHOLOGY AND GENOMIC The International Normalized Ratio (INR) is a therapeutic MEDICINE monitoring tool for patients who are stable on oral anticoagulant therapy. An INR of 2.0-3.0 is suggested for deep vein thrombosis/pulmonary embolism. Specimen Blood Performing Organization Address City/State/Zipcode Phone Number [facility] DEPARTMENT OF PATHOLOGY AND [address] [place] [address] GENOMIC MEDICINE CBC with platelet and differential (11/17/2017 8:40 AM CDT) WBC 2.32 (L) 4.50 - 11.00 k/uL [facility] DEPARTMENT OF PATHOLOGY AND GENOMIC MEDICINE RBC 3.56 (L) 4.20 - 5.50 m/uL [facility] DEPARTMENT OF PATHOLOGY AND GENOMIC MEDICINE HGB 11.8 (L) 12.0 - 16.0 g/dL [facility] DEPARTMENT OF PATHOLOGY AND GENOMIC MEDICINE HCT 34.9 (L) 37.0 - 47.0 % [facility] DEPARTMENT OF PATHOLOGY AND GENOMIC MEDICINE MCV 98.0 82.0 - 100.[address] [facility] DEPARTMENT OF PATHOLOGY AND GENOMIC MEDICINE MCH 33.1 27.0 - 34.[address] [facility] DEPARTMENT OF PATHOLOGY AND GENOMIC MEDICINE MCHC 33.8 31.0 - 37.0 g/dL [facility] DEPARTMENT OF PATHOLOGY AND GENOMIC MEDICINE RDW - SD 61.6 (H) 37.0 - 55.[address] [facility] DEPARTMENT OF PATHOLOGY AND GENOMIC MEDICINE MPV 9.9 8.8 - 13.[address] [facility] DEPARTMENT OF PATHOLOGY AND GENOMIC MEDICINE Platelet count 43 (L) 150 - 400 k/uL [facility] DEPARTMENT OF PATHOLOGY AND GENOMIC MEDICINE Nucleated RBC 0.00 /[address] [facility] DEPARTMENT OF PATHOLOGY AND GENOMIC MEDICINE Neutrophils 59.1 39.0 - 69.0 % [facility] DEPARTMENT OF PATHOLOGY AND GENOMIC MEDICINE Lymphocytes 25.4 25.0 - 45.0 % [facility] DEPARTMENT OF PATHOLOGY AND GENOMIC MEDICINE Monocytes 11.2 (H) 0.0 - 10.0 % [facility] DEPARTMENT OF PATHOLOGY AND GENOMIC MEDICINE Eosinophils 3.9 0.0 - 5.0 % [facility] DEPARTMENT OF PATHOLOGY AND GENOMIC MEDICINE Basophils 0.4 0.0 - 1.0 % [facility] DEPARTMENT OF PATHOLOGY AND GENOMIC MEDICINE Immature granulocytes 0.0Comment: 0.0 - 1.0 % [facility] DEPARTMENT OF "Immature PATHOLOGY AND GENOMIC granulocytes" MEDICINE (promyelocytes, myelocytes, metamyelocytes) Specimen Blood Performing Organization Address City/State/Zipcode Phone Number [facility] DEPARTMENT OF PATHOLOGY AND [address] [facility] [place] [address] [facility] MEDICINE Hepatic function panel (11/17/2017 8:40 AM CDT) Albumin 3.2 (L) 3.5 - 5.0 g/dL [facility] DEPARTMENT OF PATHOLOGY AND GENOMIC MEDICINE Total bilirubin 2.8 (H) 0.0 - 1.2 mg/dL [facility] DEPARTMENT OF PATHOLOGY AND GENOMIC MEDICINE Bilirubin direct 0.9 (H) 0.0 - 0.3 mg/dL [facility] DEPARTMENT OF PATHOLOGY AND GENOMIC MEDICINE Alkaline phosphatase 140 (H) 35 - 104 U/L [facility] DEPARTMENT OF PATHOLOGY AND GENOMIC MEDICINE Protein 6.2 (L) 6.3 - 8.3 g/dL [facility] DEPARTMENT OF Comment: PATHOLOGY AND GENOMIC 4.6-7.0 g/dL MEDICINE 1 week 4.4-7.6 g/dL 7 months-1year5.1-7.3 g/dL 1-2 years5.6-7.5 g/dL >3 years6.0-8.0 g/dL 18-150 6.3-8.3 g/dL ALT 53 (H) 5 - 50 U/L [facility] DEPARTMENT OF PATHOLOGY AND GENOMIC MEDICINE AST 55 (H) 10 - 35 U/L [facility] DEPARTMENT OF PATHOLOGY AND GENOMIC MEDICINE Specimen Plasma specimen Performing Organization Address City/State/Zipcode Phone Number [facility] DEPARTMENT OF PATHOLOGY AND [address] [place] [phone] GENOMIC MEDICINE Basic metabolic panel (11/17/2017 8:40 AM CDT) Sodium 143 135 - 148 mEq/L [facility] DEPARTMENT OF PATHOLOGY AND GENOMIC MEDICINE Potassium 3.9 3.5 - 5.0 mEq/L [facility] DEPARTMENT OF PATHOLOGY AND GENOMIC MEDICINE Chloride 108 98 - 112 mEq/L [facility] DEPARTMENT OF PATHOLOGY AND GENOMIC MEDICINE CO2 29 24 - 31 mEq/L [facility] DEPARTMENT OF PATHOLOGY AND GENOMIC MEDICINE Anion gap 6@ANIO (L) 7 - 15 mEq/L [facility] DEPARTMENT OF PATHOLOGY AND GENOMIC MEDICINE BUN 10 6 - 20 mg/dL [facility] DEPARTMENT OF PATHOLOGY AND GENOMIC MEDICINE Creatinine 0.6 0.5 - 0.9 mg/dL [facility] DEPARTMENT OF PATHOLOGY AND GENOMIC MEDICINE Glucose 114 (H) 65 - 99 mg/dL [facility] DEPARTMENT OF PATHOLOGY AND GENOMIC MEDICINE Calcium 8.7 8.3 - 10.2 mg/dL [facility] DEPARTMENT OF PATHOLOGY AND GENOMIC MEDICINE Specimen Plasma specimen Performing Organization Address City/State/Zipcode Phone Number [facility] DEPARTMENT OF PATHOLOGY AND [address] [place] [address] GENOMIC MEDICINE after 08/09/2017 Insurance Payer Benefit Plan / Group Subscriber ID Type Phone Address BCBS BCBS CHOICE PPO/FEDERAL EMPL PPO xxxxxxxxxxxx PPO MULTIPLAN ALLIED/PHCS-MULTIPLAN xxxxxxxxx PPO Advance Directives Patient has advance care planning documents on file. For more information, please contact:Nishant Chaidez[address] [place] [address]
--- OUTSIDE RECORDS SUMMARY | 2018-08-10 22:53 | XMS REPORT | Clinical Summary ---
:1960 Author Organization [facility] Address [address] [place] [address] Care Team Providers Name Role Phone Madhu [...] Not on file Results Not on fileafter 08/09/2017 Insurance Payer Benefit Plan / Subscriber ID Type Phone Address Group BLUE CROSS/BLUE BCBS ADV HMO xxxxxxxxxxxx [phone] [address] [place] [address] PHCS - PRIVATE PHCS PPO/POS xxxxxxxxx PPO [facility] [place] [address]
[2018-08-10] MEDS ORDERED: FUROSEMIDE 20 MG/ 2ML VIAL ONE (23:29)
[2018-08-11] MEDS ORDERED: FENTANYL CITR 100 MCG/2 ML ONE
[2018-08-11 00:17] LABS: Absolute Lymphocytes (CBC) 0.7 K/uL (0.7-4.9); Absolute Monocytes 0.3 K/uL (0.1-1.3); Absolute Neutrophil 1.7 K/uL (1.8-8.0); Basophils % 0.5 % (0-1.3); Hematocrit 33.7 % (36.0-45.0); Lymphocytes % 26.1 % (15.3-44.8); MPV 8.7 fL (7.6-11.3); Monocytes % 11.9 % (3.3-12.3); RBC Red Blood Cell Count 3.67 M/uL (3.86-4.86)
[2018-08-11 00:29] LABS: BUN Blood Urea Nitrogen 10 mg/dL (7-18); Bicarbonate 25 mmol/L (21-32); Glucose Level 97 mg/dL (74-106); NT PRO-BNP 17 pg/mL (<125); Sodium Level 141 mmol/L (136-145); Troponin (Emerg Dept Use Only) < 0.02 ng/mL (0.0-0.045)
--- NOTE | 2018-08-11 01:19 | ER ---
Nurse's Notes [facility] Name: Zenaida Goss Age: 58 yrs Sex: Female : 1960 Arrival Date: 08/10/2018 Time: 22:51 Bed 26 Private MD: Madhu Albarado R Diagnosis: Fluid overload, unspecified;Edema, unspecified Presentation: 08/10 23:18 Presenting complaint: Patient states: i noticed both of my legs are swollen and hurting mg2 today. Transition of care: patient was not received from another setting of care. Onset of symptoms was August 10, 2018. Risk Assessment: Do you want to hurt yourself or someone else? Patient reports no desire to harm self or others. Initial Sepsis Screen: Does the patient meet any 2 criteria? No. Patient's initial sepsis screen is negative. Does the patient have a suspected source of infection? No. Patient's initial sepsis screen is negative. Care prior to arrival: None. 23:18 Method Of Arrival: Ambulatory mg2 23:18 Acuity: TANK 3 mg2 Triage Assessment: 23:25 General: Appears in no apparent distress. comfortable, Behavior is calm, cooperative. mg2 Pain: Complains of pain in left leg and right leg Pain does not radiate. Pain currently is 9 out of 10 on a pain scale. Quality of pain is described as aching, Pain began gradually, 1 day ago. Is intermittent. EENT: No signs and/or symptoms were reported regarding the EENT system. Neuro: Level of Consciousness is awake, alert, obeys commands, Oriented to person, place, time, situation. Cardiovascular: Capillary refill < 3 seconds Patient's skin is warm and dry. Respiratory: Airway is patent Respiratory effort is even, unlabored, Respiratory pattern is regular, symmetrical. GI: No signs and/or symptoms were reported involving the gastrointestinal system. : No signs and/or symptoms were reported regarding the genitourinary system. Derm: Skin is intact, Skin is pink, warm \T\ dry. normal. Musculoskeletal: Circulation, motion, and sensation intact. Capillary refill < 3 seconds, Swelling present in left leg and right leg. Historical: - Allergies: 23:28 Morphine (Anaphylaxis); mg2 - Home Meds: 23:28 Lactulose Oral [Active]; xyphaxine [Active]; mg2 - PMHx: 23:28 Anemia; Cirrhosis; fatty liver; Pancreatitis; varices; mg2 - PSHx: 23:28 Cholecystectomy; Appendectomy; right breast lumpectomy; breast ca; mg2 - Immunization history:: Flu vaccine is up to date. - Social history:: Smoking status: Patient/guardian denies using tobacco, Patient/guardian denies using alcohol, street drugs, IV drugs. - Ebola Screening: : No symptoms or risks identified at this time. Screenin:26 Abuse screen: Denies threats or abuse. Denies injuries from another. Nutritional mg2 screening: No deficits noted. Tuberculosis screening: No symptoms or risk factors identified. Fall Risk Secondary diagnosis (15 points) seizures, IV access (20 points). Assessment: 23:26 Reassessment: pls see triage assessment. mg2 08/11 01:04 Reassessment: Patient states feeling better. mg2 01:05 Reassessment: patient refused dill catheter insertion. provider informed. mg2 01:40 Reassessment:. mg2 Vital Signs: 08/10 23:24 BP 140 / 60; Pulse 82; Resp 18; Temp 98.2; Pulse Ox 100% on R/A; Weight 113.4 kg; mg2 Height 5 ft. 3 in. (160.02 cm); Pain 9/10; 08/11 01:04 BP 103 / 71; Pulse 77; Resp 18; Temp 98.1; Pulse Ox 100% on R/A; Pain 4/10; mg2 01:40 BP 110 / 70; Pulse 80; Resp 18; Temp 98.2; Pulse Ox 100% on R/A; mg2 08/10 23:24 Body Mass Index 44.29 (113.40 kg, 160.02 cm) mg2 ED Course: 08/10 22:51 Patient arrived in ED. am2 22:52 Madhu Albarado MD is Private Physician. am2 22:57 Jovanny Cantor RN is Primary Nurse. mg2 23:00 [facility] snw 23:00 oHmero Terrell MD is Attending Physician. snw 23:22 Triage completed. mg2 23:26 Arm band placed on. mg2 23:29 Patient has correct armband on for positive identification. mg2 23:46 X-ray completed. Portable x-ray completed in exam room. Patient tolerated procedure kw well. 23:47 XRAY Chest (1 view) In Process Unspecified. EDMS 08/11 00:14 No provider procedures requiring assistance completed. Inserted saline lock: 22 gauge mg2 in left hand, using aseptic technique. Blood collected. 01:18 Madhu Albarado MD is Hospitalizing Provider. snw 01:44 Patient admitted, IV remains in place. mg2 Administered Medications: 08/10 23:51 Drug: Lasix 20 mg Route: IVP; Site: left hand; mg2 08/11 01:02 Follow up: Response: No adverse reaction; Marked relief of symptoms mg2 00:14 Drug: fentaNYL (PF) 50 mcg Route: IVP; Site: left hand; mg2 01:02 Follow up: Response: No adverse reaction; Marked relief of symptoms mg2 02:00 Drug: fentaNYL (PF) 50 mcg Route: IVP; Site: left hand; mg2 02:00 Follow up: Response: No adverse reaction; patient admitted mg2 Intake: Output: 01:30 Urine: 1200ml (Voided); Total: 1200ml. mg2 Outcome: 01:18 Decision to Hospitalize by Provider. snw 01:44 Admitted to Tele accompanied by nurse, via wheelchair, room 428, with chart, Report mg2 called to ERIC Nielsen 01:44 Condition: stable 01:44 Instructed on the need for admit, Demonstrated understanding of instructions. 02:01 Patient left the ED. mg2 Signatures: Dispatcher [employer] EDMS Iqra Vela, INTERIOR DESIGN ASSISTANT-C INTERIOR DESIGN ASSISTANT-Csnw Brooklynn Hawthorne Amanda am2 Gardose, Michele, RN RN mg2
--- NOTE | 2018-08-11 01:19 | EDPHYS ---
Physician Documentation [facility] Name: Zenaida Goss Age: 58 yrs Sex: Female : 1960 Arrival Date: 08/10/2018 Time: 22:51 Bed 26 Private MD: Madhu Albarado R ED Physician Homero Terrell HPI: 08/10 23:17 This 58 yrs old Female presents to ER via Unassigned with complaints of Leg snw Pain, Leg Swelling. 23:17 The patient presents with pain, swelling. The complaints affect the bilateral lower snw extremities from knees down. Context: The problem was sustained at home, resulted from an unknown cause, the patient can partially bear weight, the patient is able to ambulate. Onset: The symptoms/episode began/occurred suddenly, yesterday. Modifying factors: The symptoms are alleviated by nothing. the symptoms are aggravated by nothing. Associated signs and symptoms: The patient has no apparent associated signs or symptoms. Severity of symptoms: At their worst the symptoms were moderate, in the emergency department the symptoms are unchanged. The patient has not experienced similar symptoms in the past. 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 Historical: - Allergies: 23:28 Morphine (Anaphylaxis); mg2 - Home Meds: 23:28 Lactulose Oral [Active]; xyphaxine [Active]; mg2 - PMHx: 23:28 Anemia; Cirrhosis; fatty liver; Pancreatitis; varices; mg2 - PSHx: 23:28 Cholecystectomy; Appendectomy; right breast lumpectomy; breast ca; mg2 - Immunization history:: Flu vaccine is up to date. - Social history:: Smoking status: Patient/guardian denies using tobacco, Patient/guardian denies using alcohol, street drugs, IV drugs. - Ebola Screening: : No symptoms or risks identified at this time. ROS: 23:17 Constitutional: Negative for fever, chills, and weight loss, Eyes: Negative for injury, snw pain, redness, and discharge, ENT: Negative for injury, pain, and discharge, Neck: Negative for injury, pain, and swelling, Cardiovascular: Negative for chest pain, palpitations, and edema, Respiratory: Negative for shortness of breath, cough, wheezing, and pleuritic chest pain, Abdomen/GI: Negative for abdominal pain, nausea, vomiting, diarrhea, and constipation, Back: Negative for injury and pain, : Negative for injury, bleeding, discharge, and swelling, Skin: Negative for injury, rash, and discoloration, Neuro: Negative for headache, weakness, numbness, tingling, and seizure. 23:17 MS/extremity: Positive for swelling, of the right leg and left leg. Exam: 23:15 Constitutional: This is a well developed, well nourished patient who is awake, alert, snw and in no acute distress. Head/Face: Normocephalic, atraumatic. Eyes: Pupils equal round and reactive to light, extra-ocular motions intact. Lids and lashes normal. Conjunctiva and sclera are non-icteric and not injected. Cornea within normal limits. Periorbital areas with no swelling, redness, or edema. ENT: Nares patent. No nasal discharge, no septal abnormalities noted. Tympanic membranes are normal and external auditory canals are clear. Oropharynx with no redness, swelling, or masses, exudates, or evidence of obstruction, uvula midline. Mucous membranes moist. Neck: Trachea midline, no thyromegaly or masses palpated, and no cervical lymphadenopathy. Supple, full range of motion without nuchal rigidity, or vertebral point tenderness. No Meningismus. Chest/axilla: Normal chest wall appearance and motion. Nontender with no deformity. No lesions are appreciated. Cardiovascular: Regular rate and rhythm with a normal S1 and S2. No gallops, murmurs, or rubs. Normal PMI, no JVD. No pulse deficits. severe bilateral lower extremity edema from just above knees down. Respiratory: Lungs have equal breath sounds bilaterally, clear to auscultation and percussion. No rales, rhonchi or wheezes noted. No increased work of breathing, no retractions or nasal flaring. Abdomen/GI: Soft, non-tender, with normal bowel sounds. No distension or tympany. No guarding or rebound. No evidence of tenderness throughout. Back: No spinal tenderness. No costovertebral tenderness. Full range of motion. Skin: Warm, dry with normal turgor. Normal color with no rashes, no lesions, and no evidence of cellulitis. MS/ Extremity: Pulses equal, no cyanosis. Neurovascular intact. Full, normal range of motion. Neuro: Awake and alert, GCS 15, oriented to person, place, time, and situation. Cranial nerves II-XII grossly intact. Motor strength 5/5 in all extremities. Sensory grossly intact. Cerebellar exam normal. Normal gait. Psych: Awake, alert, with orientation to person, place and time. Behavior, mood, and affect are within normal limits. 08/11 00:07 ECG was reviewed by the Attending Physician. snw Vital Signs: 08/10 23:24 BP 140 / 60; Pulse 82; Resp 18; Temp 98.2; Pulse Ox 100% on R/A; Weight 113.4 kg; mg2 Height 5 ft. 3 in. (160.02 cm); Pain 9/10; 08/11 01:04 BP 103 / 71; Pulse 77; Resp 18; Temp 98.1; Pulse Ox 100% on R/A; Pain 4/10; mg2 01:40 BP 110 / 70; Pulse 80; Resp 18; Temp 98.2; Pulse Ox 100% on R/A; mg2 08/10 23:24 Body Mass Index 44.29 (113.40 kg, 160.02 cm) mg2 MDM: 08/10 23:00 Patient medically screened. snw 08/11 01:16 Data reviewed: vital signs, nurses notes. Data interpreted: Pulse oximetry: on room air snw is 100 %. Interpretation: acceptable. Counseling: I had a detailed discussion with the patient and/or guardian regarding: the historical points, exam findings, and any diagnostic results supporting the discharge/admit diagnosis, lab results, radiology results, the need for further work-up and treatment in the hospital. Physician consultation: Madhu Albarado MD was called at 01:16, was contacted at 01:16, regarding admission, to the telemetry unit. 01:16 ED course: discussed keeping legs elevated and follow up with Dr. Albarado. Pt requests snw admission for excess fluid removal. Dr. Albarado contacted and will admit.. 08/10 23:08 Order name: Basic Metabolic Panel; Complete Time: 00:33 snw 08/10 23:08 Order name: CBC with Diff; Complete Time: 01:59 snw 08/10 23:08 Order name: Magnesium; Complete Time: 00:33 snw 08/10 23:08 Order name: NT PRO-BNP; Complete Time: 00:33 snw 08/10 23:08 Order name: Troponin (emerg Dept Use Only); Complete Time: 00:33 snw 08/10 23:08 Order name: TS snw 08/10 23:08 Order name: XRAY Chest (1 view) snw 08/10 23:09 Order name: Urine Microscopic Only; Complete Time: 01:52 snw 08/11 00:23 Order name: Urine Dipstick--Ancillary (enter results); Complete Time: 01:52 cm6 08/11 00:23 Order name: Urine --Ancillary (enter results); Complete Time: 01:52 cm6 08/11 00:33 Order name: CBC Smear Scan; Complete Time: 01:59 EDMS 08/10 23:08 Order name: EKG; Complete Time: 23:09 snw 08/10 23:08 Order name: Cardiac monitoring; Complete Time: 23:52 snw 08/10 23:08 Order name: EKG - Nurse/Tech; Complete Time: 23:52 snw 08/10 23:08 Order name: IV Saline Lock; Complete Time: 23:52 snw 08/10 23:08 Order name: Labs collected and sent; Complete Time: 23:52 snw 08/10 23:08 Order name: O2 Per Protocol; Complete Time: 23:52 snw 08/10 23:08 Order name: O2 Sat Monitoring; Complete Time: 23:52 snw 08/10 23:08 Order name: Misc. Order: elevate lower extremities; Complete Time: 23:11 snw 08/10 23:09 Order name: Urine Dipstick-Ancillary (obtain specimen); Complete Time: 00:14 snw Administered Medications: 08/10 23:51 Drug: Lasix 20 mg Route: IVP; Site: left hand; mg2 08/11 01:02 Follow up: Response: No adverse reaction; Marked relief of symptoms mg2 00:14 Drug: fentaNYL (PF) 50 mcg Route: IVP; Site: left hand; mg2 01:02 Follow up: Response: No adverse reaction; Marked relief of symptoms mg2 02:00 Drug: fentaNYL (PF) 50 mcg Route: IVP; Site: left hand; mg2 02:00 Follow up: Response: No adverse reaction; patient admitted mg2 Disposition: 06:44 Co-signature as Attending Physician, Homero Terrell MD I agree with the assessment and vicente plan of care. Disposition: 08/11/18 01:18 Hospitalization ordered by Madhu Albarado for Observation. Preliminary diagnosis are Fluid overload, unspecified, Edema, unspecified. - Bed requested for Telemetry/MedSurg (observation). - Status is Observation. mg2 - Condition is Stable. - Problem is an acute exacerbation. - Symptoms have worsened. UTI on Admission? No Signatures: Dispatcher [employer] EDHomero Padilla MD MD cha Therrien, Shelly, IDEA MAN-C IDEA MAN-Csnw Frances Gao, RN RN cg Jovanny Cantor, ERIC RN mg2 Corrections: (The following items were deleted from the chart) 01:24 01:18 Hospitalization Ordered by Madhu Albarado MD for Observation. Preliminary diagnosis cg is Fluid overload, unspecified; Edema, unspecified. Bed requested for Telemetry/MedSurg (observation). Status is Observation. Condition is Stable. Problem is an acute exacerbation. Symptoms have worsened. UTI on Admission? No. snw 02:01 01:24 08/11/2018 01:18 Hospitalization Ordered by Madhu Albarado MD for Observation. mg2 Preliminary diagnosis is Fluid overload, unspecified; Edema, unspecified. Bed requested for Telemetry/MedSurg (observation). Status is Observation. Condition is Stable. Problem is an acute exacerbation. Symptoms have worsened. UTI on Admission? No. cg
[2018-08-11 01:50] LABS: Urine Bacteria <20 /HPF (<20); Urine Culture Reflex Order NOT NEEDED; Urine RBC NONE SEEN /HPF (NONE SEEN)
[2018-08-11 01:51] LABS: Urine Blood NEGATIVE (NEG); Urine Glucose NEGATIVE (NEG); Urine Protein NEGATIVE (NEG); Urine Specific Gravity 1.015 (1.005-1.030); Urine pH 7.5 (5.0-7.0)
[2018-08-11 01:57] LABS: Blood Morphology Comment NOT SEEN (NOT SEEN); Platelet Estimate DECR; Urine White Blood Cell Casts OK
[2018-08-11] MEDS ORDERED: ALBUTEROL 2.5 MG/3 ML NEB SOL NEB PRN ×2 (02:34→16:00)
[2018-08-11] MEDS ORDERED: PROMETHAZINE 25 MG/ML VIAL IV ONE (02:45)
[2018-08-11 03:25] VITALS: BMI 44.2
--- NOTE | 2018-08-11 05:54 | EKG ---
Test Date: 2018-08-11 Test Time: 00:02:36 Associate Technician: MEASUREMENT RESULTS: Intervals: Rate: 84 LA: 140 QRSD: 98 QT: 424 QTc: 501 [place]: P: 42 LA: 140 QRS: 51 T: 49 INTERPRETIVE STATEMENTS: Normal sinus rhythm Prolonged QT Abnormal ECG Compared to ECG 06/28/2018 16:34:28 No significant changes Electronically Signed On 08-11-18 05:53:51 CDT by Fabrizio Joe
--- NOTE | 2018-08-11 07:53 | RAD REPORT ---
EXAM DESCRIPTION: Igor Single View08/10/2018 11:47 pm CLINICAL HISTORY: Shortness of breath COMPARISON: June 2018 FINDINGS: The lungs appear clear of acute infiltrate. The heart is normal size IMPRESSION: No acute abnormalities displayed
[2018-08-11] MEDS ORDERED: FUROSEMIDE 20 MG/ 2ML VIAL IV SCH (09:00)
[2018-08-11] MEDS ORDERED: LACTULOSE 20 GM/30 ML UCUP PO SCH (09:00)
[2018-08-11] MEDS ORDERED: Rifaximin 550 MG Tab PO SCH (09:00)
[2018-08-11] MEDS: PROMETHAZINE 25 MG/ML VIAL IV PRN ×2 (09:09→16:12)
[2018-08-11] MEDS: FENTANYL CITR 100 MCG/2 ML IV PRN ×2 (09:09→16:11)
--- NOTE | 2018-08-11 09:19 | RAD REPORT ---
EXAM DESCRIPTION: USExtrem Venous W Compress Bil08/11/2018 8:57 am CLINICAL HISTORY: Bilateral leg swelling COMPARISON: 2018 FINDINGS: The common femoral, superficial femoral, popliteal and posterior tibial veins bilaterally are compressible and demonstrate augmentation. Doppler demonstrates good flow. IMPRESSION: No evidence of deep venous thrombosis involving either lower extremity.
--- NOTE | 2018-08-11 15:19 | ECHO ---
HEIGHT: 5 ft 3 in WEIGHT: 250 lb 0 oz DATE OF STUDY: 08/11/[address]: Iqra Vela REFERRAL MANAGEMENT LIAISON-BC 2-DIMENSIONAL: YES M.MODE: YES DOPPLER: YES COLOR FLOW: YES TDS: YES PORTABLE: NO DEFINITY: NO BUBBLE STUDY: NO DIAGNOSIS: FLUID OVERLOAD CARDIAC HISTORY: CATHERIZATION: NO SURGERY: NO PROSTHETIC VALVE: NO PACEMAKER: NO MEASUREMENTS (cm) DIASTOLIC (NORMALS) SYSTOLIC (NORMALS) IVSd 1.1 (0.6-1.2) LA Diam 4.3 (1.9-4.0) LVEF 64% LVIDd 4.6 (3.5-5.7) LVIDs 3.0 (2.0-3.5) %FS 34% LVPWd 1.1 (0.6-1.2) Ao Diam 2.4 (2.0-3.7) 2 DIMENSIONAL ASSESSMENT: RIGHT ATRIUM: NORMAL LEFT ATRIUM: DILATED RIGHT VENTRICLE: NORMAL LEFT VENTRICLE: NORMAL TRICUSPID VALVE: NORMAL MITRAL VALVE: NORMAL PULMONIC VALVE: NORMAL AORTIC VALVE: MILD SCLEROSIS, 3 LEAFLETS PERICARDIAL EFFUSION: NONE AORTIC ROOT: NORMAL LEFT VENTRICULAR WALL MOTION: NORMAL. DOPPLER/COLOR FLOW: MILD TRICUSPID REGURGITATION. MILD PULMONARY HYPERTENSION. ESTIMATED RIGHT VENTRICULAR SYSTOLIC PRESSURE 45mmHg. COMMENTS: NORMAL LEFT VENTRICULAR EJECTION FRACTION. DILATED LEFT ATRIUM. MILD AORTIC SCLEROSIS WITH NO AORTIC STENOSIS/ AORTIC REGURGITATION. MILD TRICUSPID REGURGITATION. MILD PULMONARY HYPERTENSION. TECHNOLOGIST: MONICA SAMANO
[2018-08-11 16:23] VITALS: O2SAT 94
[2018-08-11 16:40] VITALS: BP 129/62; TEMP 97.9
[2018-08-11] MEDS ORDERED: XIFAXAN (RIFAXIMIN) 550 MG TABLETS PO SCH (21:00)
--- NOTE | 2018-08-12 06:14 | HP ---
Date of Admission: 08/11/2018 Final Diagnoses: 1.Bilateral leg edema. 2.Probable venous insufficiency. 3.Known cirrhosis of the liver. 4.Pancytopenia related to cirrhosis of the liver. 5.History of gastric polyps. 6.History of breast cancer, remote. History: This patient was brought to the emergency room with swelling of the legs. The patient had workup in the emergency room, was admitted with a diagnosis of volume overload. The patient denied a ny history of chest pain, shortness of breath, or any other symptoms. No history of fever, chills, o r rigors. Past Medical History: Positive for: 1.Cirrhosis. 2.Asthma. 3.Pancytopenia. 4.History of gastric polyps. Family History: Noncontributory. Personal History: Nonsmoker. Allergies: MORPHINE. Home Medications: Please refer to the chart. Review of Systems: No history of fever, chills, rigors, or chest pain. Physical Examination: General: Revealed a 58-year-old female, alert and oriented. HEENT: No icterus. Neck: Supple. JVD negative. Chest: Clear. Heart: Regular. Abdomen: Nontender. Bowel sounds present. Extremities: Mild pedal edema bilaterally. Laboratory Data: White count 2.9, hemoglobin 11.3, platelet count 66. Chem profile: Troponin jania l. BNP normal. BUN and creatinine normal. Chest x-ray normal. Hospital Course: After admission to the hospital, the patient had echocardiogram and bilateral venou s Doppler study, both were negative. I discharged the patient with advice to cut down on salt intake and follow up in the office. If she continues to have swelling, she will be given diuretic. The julian dinora was advised to continue her regular medications. NOVA/DWAYNE Voice ID: [id number]
== END 2018-08-11 17:42 | disposition home or self-care (01) ==
LOC: ER 22:50 → ERHOLD 08-11 01:39 → 4TH 08-11 01:45
PROVIDERS: ADMIT Internal Medicine; ATTEND Internal Medicine
DX: R60.0 Localized edema (principal); K74.60 Unspecified cirrhosis of liver; D61.818 Other pancytopenia; Z85.3 Personal history of malignant neoplasm of breast
CPT/HCPCS: 36415; 71045; 80048; 81003; 81015; 81025; 82140; 83735; 83880; 84484; 85025; 86850; 86900; 86901; 93005; 93306; 93970; 96374; 96375; 99285; G0378; J1940; J2550; J3010

== ENCOUNTER 2018-08-25 14:12 | Emergency (ER) | payer OTHER ==
--- OUTSIDE RECORDS SUMMARY | 2018-08-25 14:18 | XMS REPORT ---
:1960 [facility] Address [address] [place] [address] Dr. Clay [address] [place] [id number] Care Team Providers Name Role Phone ALEXA [...] (JEFFERY) (test 8.6 g/dL 12.0-15.0 TESTED AT [facility] [address] [facility] [phone]) [facility] [id number]
--- OUTSIDE RECORDS SUMMARY | 2018-08-25 14:18 | XMS REPORT | Clinical Summary ---
:1960 Author Organization [facility] Address [address] [place] [address] Care Team Providers Name Role Phone Madhu [...] Not on file Results Not on fileafter 08/24/2017 Insurance Payer Benefit Plan / Subscriber ID Type Phone Address Group BLUE CROSS/BLUE BCBS ADV HMO xxxxxxxxxxxx [phone] [address] [place] [address] PHCS - PRIVATE PHCS PPO/POS xxxxxxxxx PPO [facility] [place] [address]
--- OUTSIDE RECORDS SUMMARY | 2018-08-25 14:18 | XMS REPORT | Clinical Summary ---
:1960 Author Organization [facility] Address [address] [place] [address] Care Team Providers Name Role Phone Madhu Miranda MD Primary Care Provider Allergies Not on File Medications Not on file Active Problems Not on file Encounters Date Type Specialty Care Team Description 11/17/2017 Lab Lab Dre Mayer MD Blood loss anemia (Primary Dx); Cirrhosis of liver without ascites, unspecified hepatic cirrhosis type; Esophageal varices without bleeding, unspecified esophageal varices type after 08/24/2017 Social History Tobacco Use Types Packs/Day Years [...] without bleeding, unspecified esophageal varices type after 08/24/2017 Results Smear review (11/17/2017 8:40 AM CDT) Platelet slide review Mkd decreased (A) [facility] DEPARTMENT OF PATHOLOGY AND GENOMIC MEDICINE Anisocytosis Moderate [facility] DEPARTMENT OF PATHOLOGY AND GENOMIC MEDICINE Ovalocytes Moderate [facility] DEPARTMENT OF PATHOLOGY AND GENOMIC MEDICINE Performing Organization Address City/[facility] Phone Number [facility] DEPARTMENT OF PATHOLOGY AND [address] [place] [address] [employer] Estimated GFR (11/17/2017 8:40 AM CDT) GFR Non Af Amer >90 mL/min/1.73 m2 [facility] DEPARTMENT OF PATHOLOGY AND GENOMIC MEDICINE GFR Af Amer >90 mL/min/1.73 m2 [facility] DEPARTMENT OF Comment: PATHOLOGY AND GENOMIC [...] specimen Performing Organization Address City/State/Zipcode Phone Number [facility] DEPARTMENT OF PATHOLOGY AND [address] [place] [address] [facility] Prothrombin time with INR (11/17/2017 8:40 AM CDT) Prothrombin time 16.1 (H) 12.0 - 15.0 sec [facility] DEPARTMENT OF PATHOLOGY AND GENOMIC MEDICINE INR 1.3 [facility] DEPARTMENT OF Comment: PATHOLOGY AND GENOMIC The International Normalized Ratio (INR) is a therapeutic MEDICINE monitoring tool for patients who are stable on oral anticoagulant therapy. An INR of 2.0-3.0 is suggested for deep vein thrombosis/pulmonary embolism. Specimen Blood Performing Organization Address City/State/Zipcode Phone Number [facility] DEPARTMENT OF PATHOLOGY AND [address] [place] [address] GENOMIC MEDICINE CBC with platelet and differential (11/17/2017 8:40 AM CDT) WBC 2.32 (L) 4.50 - 11.00 k/uL [facility] DEPARTMENT OF PATHOLOGY AND GENOMIC MEDICINE RBC 3.56 (L) 4.20 - 5.50 m/uL [facility] DEPARTMENT OF PATHOLOGY AND GENOMIC MEDICINE HGB 11.8 (L) 12.0 - 16.0 g/dL [facility] DEPARTMENT OF PATHOLOGY AND GENOMIC MEDICINE HCT 34.9 (L) 37.0 - 47.0 % [facility] DEPARTMENT OF PATHOLOGY AND GENOMIC MEDICINE MCV 98.0 82.0 - 100.0 fL [facility] DEPARTMENT OF PATHOLOGY AND GENOMIC MEDICINE MCH 33.1 27.0 - 34.0 pg [facility] DEPARTMENT OF PATHOLOGY AND GENOMIC MEDICINE MCHC 33.8 31.0 - 37.0 g/dL [facility] DEPARTMENT OF PATHOLOGY AND GENOMIC MEDICINE RDW - SD 61.6 (H) 37.0 - 55.0 fL [facility] DEPARTMENT OF PATHOLOGY AND GENOMIC MEDICINE MPV 9.9 8.8 - 13.2 fL [facility] DEPARTMENT OF PATHOLOGY AND GENOMIC MEDICINE Platelet count 43 (L) 150 - 400 k/uL [facility] DEPARTMENT OF PATHOLOGY AND GENOMIC MEDICINE Nucleated RBC 0.00 /100 WBC [facility] DEPARTMENT OF PATHOLOGY AND GENOMIC MEDICINE Neutrophils 59.1 39.0 - 69.0 % [facility] DEPARTMENT OF PATHOLOGY AND GENOMIC MEDICINE Lymphocytes 25.4 25.0 - 45.0 % [facility] DEPARTMENT OF PATHOLOGY AND GENOMIC MEDICINE Monocytes 11.2 (H) 0.0 - 10.0 % [facility] DEPARTMENT OF PATHOLOGY AND GENOMIC MEDICINE Eosinophils 3.9 0.0 - 5.0 % [facility] DEPARTMENT OF PATHOLOGY AND GENOMIC MEDICINE Basophils 0.4 0.0 - 1.0 % [facility] DEPARTMENT OF PATHOLOGY AND GENOMIC MEDICINE Immature granulocytes 0.0Comment: 0.0 - 1.0 % [facility] DEPARTMENT OF "Immature PATHOLOGY AND GENOMIC granulocytes" MEDICINE (promyelocytes, myelocytes, metamyelocytes) Specimen Blood Performing Organization Address City/State/Zipcode Phone Number [facility] DEPARTMENT OF PATHOLOGY AND [address] [place] [address] [employer] [facility] Hepatic function panel (11/17/2017 8:40 AM CDT) Albumin 3.2 (L) 3.5 - 5.0 g/dL [facility] DEPARTMENT OF PATHOLOGY AND GENOMIC MEDICINE Total bilirubin 2.8 (H) 0.0 - 1.2 mg/dL [facility] DEPARTMENT OF PATHOLOGY AND GENOMIC MEDICINE Bilirubin direct 0.9 (H) 0.0 - 0.3 mg/dL [facility] DEPARTMENT OF PATHOLOGY AND GENOMIC MEDICINE Alkaline phosphatase 140 (H) 35 - 104 U/L [facility] DEPARTMENT OF PATHOLOGY AND GENOMIC MEDICINE Protein 6.2 (L) 6.3 - 8.3 g/dL [facility] DEPARTMENT OF Comment: PATHOLOGY AND GENOMIC [place] 4.6-7.0 g/dL MEDICINE 1 week 4.4-7.6 g/dL 7 months-1year5.1-7.3 g/dL 1-2 years5.6-7.5 g/dL >3 years6.0-8.0 g/dL 18-150 6.3-8.3 g/dL ALT 53 (H) 5 - 50 U/L [facility] DEPARTMENT OF PATHOLOGY AND GENOMIC MEDICINE AST 55 (H) 10 - 35 U/L [facility] DEPARTMENT OF PATHOLOGY AND GENOMIC MEDICINE Specimen Plasma specimen Performing Organization Address City/State/Zipcode Phone Number [facility] DEPARTMENT OF PATHOLOGY AND [address] [place] [address] GENOMIC MEDICINE Basic metabolic panel (11/17/2017 8:40 AM CDT) Sodium 143 135 - 148 mEq/L [facility] DEPARTMENT OF PATHOLOGY AND GENOMIC MEDICINE Potassium 3.9 3.5 - 5.0 mEq/L [facility] DEPARTMENT OF PATHOLOGY AND GENOMIC MEDICINE Chloride 108 98 - 112 mEq/L [facility] DEPARTMENT OF PATHOLOGY AND GENOMIC MEDICINE CO2 29 24 - 31 mEq/L [facility] DEPARTMENT OF PATHOLOGY AND GENOMIC MEDICINE Anion gap 6@ANIO (L) 7 - 15 mEq/L [facility] DEPARTMENT OF PATHOLOGY AND GENOMIC MEDICINE BUN 10 6 - 20 mg/dL [facility] DEPARTMENT OF PATHOLOGY AND GENOMIC MEDICINE Creatinine 0.6 0.5 - 0.9 mg/dL [facility] DEPARTMENT OF PATHOLOGY AND GENOMIC MEDICINE Glucose 114 (H) 65 - 99 mg/dL [facility] DEPARTMENT OF PATHOLOGY AND GENOMIC MEDICINE Calcium 8.7 8.3 - 10.2 mg/dL [facility] DEPARTMENT OF PATHOLOGY AND GENOMIC MEDICINE Specimen Plasma specimen Performing Organization Address City/State/Zipcode Phone Number [facility] DEPARTMENT OF PATHOLOGY AND [address] [place] [address] GENOMIC MEDICINE after 08/24/2017 Insurance Payer Benefit Plan / Group Subscriber ID Type Phone Address BCBS BCBS CHOICE PPO/FEDERAL EMPL PPO xxxxxxxxxxxx PPO MULTIPLAN ALLIED/PHCS-MULTIPLAN xxxxxxxxx PPO Advance Directives Patient has advance care planning documents on file. For more information, please contact:Nishant Chaidez[address] [place] [address]
[2018-08-25] MEDS ORDERED: FUROSEMIDE 20 MG/ 2ML VIAL ONE (16:27)
[2018-08-25] MEDS ORDERED: FUROSEMIDE 40 MG/4 ML VIAL ONE (16:28)
--- NOTE | 2018-08-25 16:40 | RAD REPORT ---
EXAM DESCRIPTION: RAD - Chest Single View - 08/25/2018 4:19 pm CLINICAL HISTORY: Bilateral leg pain and swelling COMPARISON: August 2018 TECHNIQUE: AP portable chest image was obtained 1613 hours . FINDINGS: Lung volumes are low. No peripheral mass or consolidation. Lung markings are less prominen t than the comparison. A minimal amount of failure or volume overload could be masked in this setting . Heart and vasculature are normal. No measurable pleural effusion and no pneumothorax. No acute bony abnormality seen. No acute aortic findings suspected. IMPRESSION: Limited shallow inspiration film with no acute cardiopulmonary finding. Vasculature and lung markings are decreased from the comparison. A minimal amount of failure or volum e overload could still be present.
[2018-08-25 16:44] LABS: Absolute Lymphocytes (CBC) 0.6 K/uL (0.7-4.9); Absolute Monocytes 0.3 K/uL (0.1-1.3); Absolute Neutrophil 1.3 K/uL (1.8-8.0); Basophils % 0.7 % (0-1.3); Eosinophils % 4.1 % (0-4.4); Hematocrit 35.3 % (36.0-45.0); Lymphocytes % 28.1 % (15.3-44.8); MPV 7.9 fL (7.6-11.3); Monocytes % 11.2 % (3.3-12.3); Protime INR 1.14; RBC Red Blood Cell Count 3.89 M/uL (3.86-4.86)
[2018-08-25 16:57] LABS: ALT/SGPT 46 U/L (12-78); AST/SGOT 50 U/L (15-37); Albumin 3.3 g/dL (3.4-5.0); Alkaline Phosphatase 142 U/L (45-117); BUN Blood Urea Nitrogen 9 mg/dL (7-18); Bicarbonate 26 mmol/L (21-32); Bilirubin Direct 0.8 mg/dL (0-0.2); Bilirubin Total 2.1 mg/dL (0.2-1.0); Glucose Level 79 mg/dL (74-106); NT PRO-BNP 53 pg/mL (<125); Potassium 3.7 mmol/L (3.5-5.1); Protein, Total 6.6 g/dL (6.4-8.2); Sodium Level 144 mmol/L (136-145)
--- NOTE | 2018-08-25 17:13 | ER ---
Nurse's Notes [facility] Name: Zenaida Goss Age: 58 yrs Sex: Female : 1960 Arrival Date: 08/25/2018 Time: 14:14 Bed 28 Private MD: Madhu Albarado R Diagnosis: Other cirrhosis of liver;Edema, not elsewhere classified Presentation: 08/25 14:38 Presenting complaint: Patient states: bilateral leg swelling and pain that began 2 days ss ago. Pt reports that this occurred once before and she was diagnosed with edema and given Lasix. Transition of care: patient was not received from another setting of care. Onset of symptoms was August 23, 2018. Risk Assessment: Do you want to hurt yourself or someone else? Patient reports no desire to harm self or others. Initial Sepsis Screen: Does the patient meet any 2 criteria? No. Patient's initial sepsis screen is negative. Does the patient have a suspected source of infection? No. Patient's initial sepsis screen is negative. Care prior to arrival: None. 14:38 Method Of Arrival: Ambulatory ss 14:38 Acuity: TANK 3 ss Historical: - Allergies: 14:39 Morphine (Anaphylaxis); ss - Home Meds: 17:21 Lactulose Oral [Active]; xyphaxine [Active]; mg2 - PMHx: 14:39 Anemia; Cirrhosis; fatty liver; Pancreatitis; varices; ss - PSHx: 14:39 Cholecystectomy; Appendectomy; right breast lumpectomy; breast ca; ss - Immunization history:: Adult Immunizations up to date. - Social history:: Smoking status: Patient/guardian denies using tobacco. - Ebola Screening: : Patient denies exposure to infectious person Patient denies travel to an Ebola-affected area in the 21 days before illness onset. Screenin:58 Abuse screen: Denies threats or abuse. Denies injuries from another. Nutritional mg2 screening: No deficits noted. Tuberculosis screening: No symptoms or risk factors identified. Fall Risk None identified. Assessment: 15:56 General: Appears in no apparent distress. comfortable, Behavior is calm, cooperative. mg2 Pain: Complains of pain in right leg and left leg Pain does not radiate. Pain currently is 5 out of 10 on a pain scale. Quality of pain is described as aching, Pain began gradually. Neuro: Level of Consciousness is awake, alert, obeys commands, Oriented to person, place, time, situation. Cardiovascular: Capillary refill < 3 seconds Patient's skin is warm and dry. Respiratory: Reports shortness of breath Airway is patent Respiratory effort is even, unlabored, Respiratory pattern is regular, symmetrical. GI: No signs and/or symptoms were reported involving the gastrointestinal system. : No signs and/or symptoms were reported regarding the genitourinary system. EENT: No signs and/or symptoms were reported regarding the EENT system. Derm: Skin is intact, is healthy with good turgor, Skin is pink, warm \T\ dry. normal. Musculoskeletal: Circulation, motion, and sensation intact. Capillary refill < 3 seconds, Swelling present in right leg and left leg. 17:29 Reassessment: patient is up for discharge. just waiting for the provider to come and mg2 talk to the patient prior to discharge. 17:55 Reassessment: Patient states feeling better. Patient states symptoms have improved. mg2 Vital Signs: 14:39 BP 116 / 67; Pulse 83; Resp 20; Temp 98.2(TE); Pulse Ox 97% on R/A; Weight 113.4 kg; ss Height 5 ft. 3 in. (160.02 cm); Pain 10/10; 15:55 BP 91 / 76; Pulse 86; Resp 18; Temp 98.2(O); Pulse Ox 98% on R/A; Pain 5/10; mg2 17:55 BP 122 / 78; Pulse 80; Resp 18; Temp 98; Pulse Ox 100% on R/A; Pain 2/10; mg2 14:39 Body Mass Index 44.29 (113.40 kg, 160.02 cm) ED Course: 14:14 Patient arrived in ED. rg4 14:14 Madhu Albarado MD is Private Physician. rg4 14:39 Triage completed. ss 14:39 Arm band placed on right wrist. ss 15:42 Matthew Patel MD is Attending Physician. gs 15:54 Jovanny Cantor, ERIC is Primary Nurse. mg2 15:58 No provider procedures requiring assistance completed. mg2 16:08 EKG done, by pc technician. reviewed by Matthew Patel MD. sm3 16:20 XRAY Chest (1 view) In Process Unspecified. EDMS 17:12 Madhu Albarado MD is Referral Physician. gs 17:20 Patient has correct armband on for positive identification. mg2 17:20 Inserted saline lock: 22 gauge in left hand, using aseptic technique. Blood collected. mg2 17:52 IV discontinued, intact, bleeding controlled, No redness/swelling at site. Pressure mg2 dressing applied. Administered Medications: 16:20 Drug: Lasix 60 mg Route: IVP; Site: left hand; mg2 17:21 Follow up: Response: No adverse reaction; patient urinated 1Liter of urine mg2 Intake: Outcome: 17:12 Discharge ordered by . gs 17:53 Discharged to home ambulatory, with family. mg2 17:53 Condition: stable 17:53 Discharge instructions given to patient, family, Instructed on discharge instructions, follow up and referral plans. medication usage, Demonstrated understanding of instructions, follow-up care, medications, Prescriptions given X 1. 17:55 Patient left the ED. mg2 Signatures: Dispatcher [employer] EDNY Inocencia Villafuerte RN RN Di Gao rg4 Matthew Patel MD MD Jovanny Cantor RN RN mg2 Yenny Sands sm3
--- NOTE | 2018-08-25 17:13 | EDPHYS ---
Physician Documentation [facility] Name: Zenaida Goss Age: 58 yrs Sex: Female : 1960 Arrival Date: 08/25/2018 Time: 14:14 Bed 28 Private MD: Madhu Albarado R ED Physician Matthew Patel HPI: 08/26 07:17 This 58 yrs old Female presents to ER via Ambulatory with complaints of Leg gs Swelling. 07:17 The patient presents with swelling. The complaints affect the left knee and left patterson gs and left leg and right leg. Context: pt with cirrhosis chronic edema, seen last week work up for dvt edema admit to hospital, increase edema was not discharged on diuretics comes with increased swelling. Onset: The symptoms/episode began/occurred 1 week(s) ago. Modifying factors: The symptoms are alleviated by elevating leg. Associated signs and symptoms: Pertinent negatives tingling. Severity of symptoms: At their worst the symptoms were severe, in the emergency department the symptoms are unchanged. The patient has experienced similar episodes in the past, chronically. Historical: - Allergies: 08/25 14:39 Morphine (Anaphylaxis); ss - Home Meds: 17:21 Lactulose Oral [Active]; xyphaxine [Active]; mg2 - PMHx: 14:39 Anemia; Cirrhosis; fatty liver; Pancreatitis; varices; ss - PSHx: 14:39 Cholecystectomy; Appendectomy; right breast lumpectomy; breast ca; ss - Immunization history:: Adult Immunizations up to date. - Social history:: Smoking status: Patient/guardian denies using tobacco. - Ebola Screening: : Patient denies exposure to infectious person Patient denies travel to an Ebola-affected area in the 21 days before illness onset. ROS: 08/26 07:17 All other systems are negative. gs Exam: 07:17 Head/Face: Normocephalic, atraumatic. Eyes: Pupils equal round and reactive to light, gs extra-ocular motions intact. Lids and lashes normal. Conjunctiva and sclera are non-icteric and not injected. Cornea within normal limits. Periorbital areas with no swelling, redness, or edema. ENT: Nares patent. No nasal discharge, no septal abnormalities noted. Tympanic membranes are normal and external auditory canals are clear. Oropharynx with no redness, swelling, or masses, exudates, or evidence of obstruction, uvula midline. Mucous membranes moist. Neck: Trachea midline, no thyromegaly or masses palpated, and no cervical lymphadenopathy. Supple, full range of motion without nuchal rigidity, or vertebral point tenderness. No Meningismus. Chest/axilla: Normal chest wall appearance and motion. Nontender with no deformity. No lesions are appreciated. 07:17 Respiratory: Lungs have equal breath sounds bilaterally, clear to auscultation and percussion. No rales, rhonchi or wheezes noted. No increased work of breathing, no retractions or nasal flaring. Abdomen/GI: Soft, non-tender, with normal bowel sounds. No distension or tympany. No guarding or rebound. No evidence of tenderness throughout. Back: No spinal tenderness. No costovertebral tenderness. Full range of motion. Skin: Warm, dry with normal turgor. Normal color with no rashes, no lesions, and no evidence of cellulitis. MS/ Extremity: Pulses equal, no cyanosis. Neurovascular intact. Full, normal range of motion. Neuro: Awake and alert, GCS 15, oriented to person, place, time, and situation. Cranial nerves II-XII grossly intact. Motor strength 5/5 in all extremities. Sensory grossly intact. Cerebellar exam normal. Normal gait. 07:17 Constitutional: The patient appears alert, awake. 07:17 Cardiovascular: Rate: normal, Rhythm: regular, Pulses: no pulse deficits are appreciated, Heart sounds: normal, Edema: 3+ edema to level of left midcalf, left ankle, right midcalf and right ankle. 07:17 ECG was reviewed by the Attending Physician. Vital Signs: 08/25 14:39 BP 116 / 67; Pulse 83; Resp 20; Temp 98.2(TE); Pulse Ox 97% on R/A; Weight 113.4 kg; ss Height 5 ft. 3 in. (160.02 cm); Pain 10/10; 15:55 BP 91 / 76; Pulse 86; Resp 18; Temp 98.2(O); Pulse Ox 98% on R/A; Pain 5/10; mg2 17:55 BP 122 / 78; Pulse 80; Resp 18; Temp 98; Pulse Ox 100% on R/A; Pain 2/10; mg2 14:39 Body Mass Index 44.29 (113.40 kg, 160.02 cm) ss MDM: 15:55 Patient medically screened. 08/26 07:17 Differential diagnosis: hypoalbuminemia, cirrhosis,chf. Data reviewed: vital signs, nurses notes, lab test result(s), EKG, radiologic studies. Counseling: I had a detailed discussion with the patient and/or guardian regarding: lab results, radiology results, the need for outpatient follow up. Physician consultation: Madhu Albarado MD regarding consult, patient's condition, and will see patient in office, says concerned about drug seeking and pt needs to be on spironolactone. 08/25 16:00 Order name: Basic Metabolic Panel; Complete Time: 17:11 08/25 16:00 Order name: CBC with Diff; Complete Time: 17:11 08/25 16:00 Order name: LFT's; Complete Time: 17:11 08/25 16:00 Order name: Magnesium; Complete Time: 17:11 08/25 16:00 Order name: NT PRO-BNP; Complete Time: 17:11 08/25 16:00 Order name: PT-INR; Complete Time: 17:11 08/25 16:00 Order name: XRAY Chest (1 view); Complete Time: 17:11 08/25 16:00 Order name: EKG; Complete Time: 16:01 08/25 16:00 Order name: Cardiac monitoring; Complete Time: 16:51 08/25 16:00 Order name: EKG - Nurse/Tech; Complete Time: 16:51 08/25 16:00 Order name: IV Saline Lock; Complete Time: 16:51 08/25 17:15 Order name: Urine Dipstick--Ancillary (enter results) 08/25 17:15 Order name: Urine --Ancillary (enter results) 08/25 16:00 Order name: Labs collected and sent; Complete Time: 16:52 08/25 16:00 Order name: O2 Per Protocol; Complete Time: 16:52 08/25 16:00 Order name: O2 Sat Monitoring; Complete Time: 16:52 EC: Rate is 78 beats/min. Rhythm is regular. AK interval is normal. QRS interval is normal. gs T waves are Flattened. No ST changes noted. Clinical impression: NSR w/ Non-specific ST/T Changes and Abnormal EKG without significant change. Interpreted by me. Administered Medications: 08/25 16:20 Drug: Lasix 60 mg Route: IVP; Site: left hand; mg2 17:21 Follow up: Response: No adverse reaction; patient urinated 1Liter of urine mg2 Disposition: 08/25/18 17:12 Discharged to Home. Impression: Other cirrhosis of liver, Edema, not elsewhere classified. - Condition is Stable. - Discharge Instructions: Peripheral Edema. - Prescriptions for Spironolactone 25 mg Oral Tablet - take 2 tablet by ORAL route every 12 hours; 20 tablet. - Medication Reconciliation Form, Thank You Letter, Antibiotic Education, Prescription Opioid Use form. - Follow up: Madhu Albarado MD; When: 2 - 3 days; Reason: Re-evaluation by your physician. Signatures: Dispatcher [employer] EDMS Inocencia Villafuerte RN RN Matthew Patel MD MD Jovanny Cantor RN RN mg2 Corrections: (The following items were deleted from the chart) 17:55 17:12 08/25/2018 17:12 Discharged to Home. Impression: Other cirrhosis of liver; Edema, mg2 not elsewhere classified. Condition is Stable. Forms are Medication Reconciliation Form, Thank You Letter, Antibiotic Education, Prescription Opioid Use. Follow up: Madhu Albarado; When: 2 - 3 days; Reason: Re-evaluation by your physician. gs
[2018-08-25 18:06] VITALS: BP 122/78; TEMP 98; O2SAT 100
[2018-08-25 18:42] LABS: Urine Blood NEGATIVE (NEG); Urine Glucose NEGATIVE (NEG); Urine Protein NEGATIVE (NEG); Urine Specific Gravity 1.015 (1.005-1.030)
--- NOTE | 2018-08-26 14:27 | EKG ---
Test Date: 2018-08-25 Test Time: 16:08:27 Safety Analyst: CELENA MEASUREMENT RESULTS: Intervals: Rate: 78 TX: 144 QRSD: 94 QT: 428 QTc: 487 [place]: P: 32 TX: 144 QRS: 47 T: 37 INTERPRETIVE STATEMENTS: Normal sinus rhythm Low voltage Abnormal ECG Compared to ECG 08/11/2018 00:02:36 Prolonged QT interval no longer present Electronically Signed On 08-26-18 14:27:11 CDT by Fabrizio Joe
== END 2018-08-25 17:55 | disposition home or self-care (01) ==
LOC: ER 14:12
DX: K74.69 Other cirrhosis of liver (principal); K76.0 Fatty (change of) liver, not elsewhere classified; Z85.3 Personal history of malignant neoplasm of breast; Z88.5 Allergy status to narcotic agent
CPT/HCPCS: 36415; 71045; 80048; 80076; 81003; 81025; 83735; 83880; 85025; 85610; 93005; 96374; 99284; J1940

== ENCOUNTER 2018-09-30 14:05 | Emergency (ER) | payer OTHER ==
--- OUTSIDE RECORDS SUMMARY | 2018-09-30 14:09 | XMS REPORT | Clinical Summary ---
:1960 Author Organization [facility] Address [address] [place] [address] Care Team Providers Name Role Phone Madhu Miranda MD Primary Care Provider Allergies Not on File Medications Not on file Active Problems Not on file Encounters Date Type Specialty Care Team Description 11/17/2017 Lab Lab Dre Mayer MD Blood loss anemia (Primary Dx); Cirrhosis of liver without ascites, unspecified hepatic cirrhosis type; Esophageal varices without bleeding, unspecified esophageal varices type after 09/29/2017 Social History Tobacco Use Types Packs/Day Years Used Date Never Assessed Sex Assigned at Date Recorded Not on file Job Start Date Occupation Industry Not on file Not on file Not on file Travel History Travel Start Travel End No recent travel history available. Last Filed Vital Signs Not on file Plan of Treatment Health Maintenance Due Date Last Done Comments BREAST CANCER SCREENING 2011 COLONOSCOPY SCREENING 2011 SHINGLES VACCINES (#1) 2011 INFLUENZA [...] without bleeding, unspecified esophageal varices type after 09/29/2017 Results Smear review (11/17/2017 8:40 AM CDT) Platelet slide review Mkd decreased (A) [facility] DEPARTMENT OF PATHOLOGY AND GENOMIC MEDICINE Anisocytosis Moderate [facility] DEPARTMENT OF PATHOLOGY AND GENOMIC MEDICINE Ovalocytes Moderate [facility] DEPARTMENT OF PATHOLOGY AND GENOMIC MEDICINE Specimen Performing Organization Address City/[facility] Phone Number [facility] DEPARTMENT OF PATHOLOGY AND [address] [place] [address] GENOMIC MEDICINE Estimated GFR (11/17/2017 8:40 AM CDT) GFR Non Af Amer >90 mL/min/1.73 [facility] DEPARTMENT OF m2 PATHOLOGY AND GENOMIC MEDICINE GFR Af Amer >90 mL/min/1.73 [facility] DEPARTMENT OF Comment: m2 PATHOLOGY AND Chronic kidney disease: <60 mL/min/1.73m2 GENOMIC MEDICINE Kidney failure: <15 mL/min/1.73m2 The estimated [...] specimen Performing Organization Address City/State/Zipcode Phone Number [facility] DEPARTMENT OF PATHOLOGY AND [address] [place] [address] Specle [facility] Prothrombin time with INR (11/17/2017 8:40 AM CDT) Prothrombin time 16.1 (H) 12.0 - 15.0 [facility] DEPARTMENT OF sec PATHOLOGY AND GENOMIC MEDICINE INR 1.3 [facility] DEPARTMENT OF Comment: PATHOLOGY AND The International Normalized Ratio (INR) is a therapeutic GENOMIC MEDICINE monitoring tool for patients who are stable on oral anticoagulant therapy. An INR of 2.0-3.0 is suggested for deep vein thrombosis/pulmonary embolism. Specimen Blood Performing Organization Address City/[facility]/Zipcode Phone Number [facility] DEPARTMENT OF PATHOLOGY AND [address] [place] [phone] GENOMIC MEDICINE CBC with platelet and differential (11/17/2017 8:40 AM CDT) [facility] Signature WBC 2.32 (L) 4.50 - 11.00 [facility] DEPARTMENT OF k/uL PATHOLOGY AND GENOMIC MEDICINE RBC 3.56 (L) 4.20 - 5.50 [facility] DEPARTMENT OF m/uL PATHOLOGY AND GENOMIC MEDICINE HGB 11.8 (L) 12.0 - 16.0 [facility] DEPARTMENT OF g/dL PATHOLOGY AND GENOMIC MEDICINE HCT 34.9 (L) 37.0 - 47.0 % [facility] DEPARTMENT OF PATHOLOGY AND GENOMIC MEDICINE MCV 98.0 82.0 - 100.0 [facility] DEPARTMENT OF DC PATHOLOGY AND GENOMIC MEDICINE MCH 33.1 27.0 - 34.0 [facility] DEPARTMENT OF PATHOLOGY AND GENOMIC MEDICINE MCHC 33.8 31.0 - 37.0 [facility] DEPARTMENT OF g/dL PATHOLOGY AND GENOMIC MEDICINE RDW - SD 61.6 (H) 37.0 - 55.0 [facility] DEPARTMENT OF DC PATHOLOGY AND GENOMIC MEDICINE MPV 9.9 8.8 - 13.2 [facility] DEPARTMENT OF PATHOLOGY AND GENOMIC MEDICINE Platelet count 43 (L) 150 - 400 [facility] DEPARTMENT OF k/uL PATHOLOGY AND GENOMIC MEDICINE Nucleated RBC 0.00 /100 WBC [facility] DEPARTMENT OF PATHOLOGY AND GENOMIC MEDICINE Neutrophils 59.1 39.0 - 69.0 % [facility] DEPARTMENT OF PATHOLOGY AND GENOMIC MEDICINE Lymphocytes 25.4 25.0 - 45.0 % [facility] DEPARTMENT OF PATHOLOGY AND GENOMIC MEDICINE Monocytes 11.2 (H) 0.0 - 10.0 % [facility] DEPARTMENT OF PATHOLOGY AND GENOMIC MEDICINE Eosinophils 3.9 0.0 - 5.0 % [facility] DEPARTMENT OF PATHOLOGY AND GENOMIC MEDICINE Basophils 0.4 0.0 - 1.0 % [facility] DEPARTMENT OF PATHOLOGY AND GENOMIC MEDICINE Immature granulocytes 0.0Comment: 0.0 - 1.0 % [facility] DEPARTMENT OF "Immature PATHOLOGY AND granulocytes" GENOMIC MEDICINE (promyelocytes , myelocytes, metamyelocytes ) Specimen Blood Performing Organization Address City/[facility]/Zipcode Phone Number [facility] DEPARTMENT OF PATHOLOGY AND [address] [place] [address] Specle MEDICINE Hepatic function panel (11/17/2017 8:40 AM CDT) Albumin 3.2 (L) 3.5 - 5.0 g/dL [facility] DEPARTMENT OF PATHOLOGY AND GENOMIC MEDICINE Total bilirubin 2.8 (H) 0.0 - 1.2 [facility] DEPARTMENT OF mg/dL PATHOLOGY AND GENOMIC MEDICINE Bilirubin direct 0.9 (H) 0.0 - 0.3 [facility] DEPARTMENT OF mg/dL PATHOLOGY AND GENOMIC MEDICINE Alkaline phosphatase 140 (H) 35 - 104 U/L [facility] DEPARTMENT OF PATHOLOGY AND GENOMIC MEDICINE Protein 6.2 (L) 6.3 - 8.3 g/dL [facility] DEPARTMENT OF Comment: PATHOLOGY AND [place] 4.6-7.0 g/dL GENOMIC MEDICINE 1 week 4.4-7.6 g/dL 7 months-1year5.1-7.3 g/dL 1-2 years5.6-7.5 g/dL >3 years6.0-8.0 g/dL 18-150 6.3-8.3 g/dL ALT 53 (H) 5 - 50 U/L [facility] DEPARTMENT OF PATHOLOGY AND GENOMIC MEDICINE AST 55 (H) 10 - 35 U/L [facility] DEPARTMENT OF PATHOLOGY AND GENOMIC MEDICINE Specimen Plasma specimen Performing Organization Address City/State/[facility]ode Phone Number [facility] DEPARTMENT OF PATHOLOGY AND [address] [place] [phone] Specle MEDICINE Basic metabolic panel (11/17/2017 8:40 AM CDT) Pathologist [facility] Sodium 143 135 - 148 mEq/L [facility] DEPARTMENT OF PATHOLOGY AND GENOMIC MEDICINE Potassium 3.9 3.5 - 5.0 mEq/L [facility] DEPARTMENT OF PATHOLOGY AND GENOMIC MEDICINE Chloride 108 98 - 112 mEq/L [facility] DEPARTMENT OF PATHOLOGY AND GENOMIC MEDICINE CO2 29 24 - 31 mEq/L [facility] DEPARTMENT OF PATHOLOGY AND GENOMIC MEDICINE Anion gap 6@ANIO (L) 7 - 15 mEq/L [facility] DEPARTMENT OF PATHOLOGY AND GENOMIC MEDICINE BUN 10 6 - 20 mg/dL [facility] DEPARTMENT OF PATHOLOGY AND GENOMIC MEDICINE Creatinine 0.6 0.5 - 0.9 mg/dL [facility] DEPARTMENT OF PATHOLOGY AND GENOMIC MEDICINE Glucose 114 (H) 65 - 99 mg/dL [facility] DEPARTMENT OF PATHOLOGY AND GENOMIC MEDICINE Calcium 8.7 8.3 - 10.2 mg/dL [facility] DEPARTMENT OF PATHOLOGY AND GENOMIC MEDICINE Specimen Plasma specimen Performing Organization Address City/State/Zipcode Phone Number [facility] DEPARTMENT OF PATHOLOGY AND [address] [place] [address] GENOMIC MEDICINE after 09/29/2017 Advance Directives Patient has advance care planning documents on file. For more information, please contact:Nishant Chaidez[address] [place] [address]
--- OUTSIDE RECORDS SUMMARY | 2018-09-30 14:09 | XMS REPORT ---
:1960 [facility] Address [address] [place] [address] Dr. [address] [place] [address] Care Team Providers Name Role Phone ALEXA [...] (JEFFERY) (test 8.6 g/dL 12.0-15.0 TESTED AT [facility] [address] [facility] [phone]) [facility] [address]
--- OUTSIDE RECORDS SUMMARY | 2018-09-30 14:09 | XMS REPORT | Clinical Summary ---
:1960 Author Organization [facility] Address [address] [place] [address] Care Team Providers Name Role Phone Madhu [...] Not on file Results Not on fileafter 09/29/2017 Insurance Payer Benefit Plan / Subscriber ID Type Phone Address Group BLUE CROSS/BLUE BCBS ADV HMO xxxxxxxxxxxx [phone] [address] [place] [address] PHCS - PRIVATE [employer]CS PPO/POS xxxxxxxxx [facility] [place] [address]
[2018-09-30] MEDS ORDERED: ONDANSETRON 4 MG/2 ML VIAL ONE ×3 (14:51→17:39)
[2018-09-30] MEDS ORDERED: NA CHLORIDE 0.9% 1,000 ML ONE (15:10)
[2018-09-30] MEDS ORDERED: PANTOPRAZOLE 40 MG INJ ONE (15:10)
[2018-09-30] MEDS ORDERED: HYDROMORPHONE HCL 1 MG/ML INJ ONE (15:10)
[2018-09-30 15:17] LABS: Absolute Lymphocytes (CBC) 0.8 K/uL (0.7-4.9); Basophils % 0.7 % (0-1.3); Eosinophils % 4.9 % (0-4.4); Lymphocytes % 26.7 % (15.3-44.8); MPV 8.5 fL (7.6-11.3); RBC Red Blood Cell Count 3.79 M/uL (3.86-4.86)
--- NOTE | 2018-09-30 15:28 | RAD REPORT ---
EXAM DESCRIPTION: RAD - Chest Single View - 09/30/2018 3:19 pm CLINICAL HISTORY: Abdominal pain, shortness of breath COMPARISON: August 25, 2018 TECHNIQUE: AP portable chest image was obtained 1515 hour . FINDINGS: Lung volumes are low accentuating lung markings. No substantial change from comparison. He art and vasculature are normal. No measurable pleural effusion and no pneumothorax. No acute bony abn ormality seen. No acute aortic findings suspected. IMPRESSION: No acute cardiopulmonary process. No significant interval change.
[2018-09-30 15:31] LABS: Protime INR 1.11
[2018-09-30 15:37] LABS: ALT/SGPT 51 U/L (12-78); AST/SGOT 49 U/L (15-37); Albumin 3.3 g/dL (3.4-5.0); Alkaline Phosphatase 147 U/L (45-117); BUN Blood Urea Nitrogen 10 mg/dL (7-18); Bicarbonate 26 mmol/L (21-32); Bilirubin Direct 0.6 mg/dL (0-0.2); Bilirubin Total 1.8 mg/dL (0.2-1.0); Glucose Level 84 mg/dL (74-106); Lipase 484 U/L (73-393); Magnesium 2.1 mg/dL (1.8-2.4); NT PRO-BNP 41 pg/mL (<125); Protein, Total 6.9 g/dL (6.4-8.2); Sodium Level 143 mmol/L (136-145); Troponin (Emerg Dept Use Only) < 0.02 ng/mL (0.0-0.045)
--- NOTE | 2018-09-30 15:56 | ER ---
Nurse's Notes [facility] Name: Zenaida Goss Age: 58 yrs Sex: Female : 1960 Arrival Date: 09/30/2018 Time: 14:08 Bed 7 Private MD: Madhu Albarado R Diagnosis: Unspecified cirrhosis of liver;Encephalopathy, unspecified;Acute pancreatitis-hx of Presentation: 09/30 14:17 Presenting complaint: Patient states: Abd pain for about 2 hours with nausea, pt states la1 feels like her pancreatitis. Transition of care: patient was not received from another setting of care. Onset of symptoms was September 30, 2018. Risk Assessment: Do you want to hurt yourself or someone else? Patient reports no desire to harm self or others. Initial Sepsis Screen: Does the patient meet any 2 criteria? No. Patient's initial sepsis screen is negative. Does the patient have a suspected source of infection? No. Patient's initial sepsis screen is negative. Care prior to arrival: None. 14:17 Method Of Arrival: Ambulatory la1 14:17 Acuity: TANK 3 la1 Triage Assessment: 14:18 General: Appears in no apparent distress. uncomfortable, Behavior is calm, cooperative, hj appropriate for age. Pain: Complains of pain in right upper quadrant Pain radiates to back. GI: Reports nausea. Historical: - Allergies: 14:16 Morphine (Anaphylaxis); la1 - Home Meds: 14:16 Lactulose Oral [Active]; xyphaxine [Active]; hj - PMHx: 14:16 Anemia; Cirrhosis; fatty liver; Pancreatitis; varices; la1 - PSHx: 14:16 Appendectomy; Cholecystectomy; Lumpectomy; la1 - Immunization history:: Adult Immunizations up to date. - Social history:: Smoking status: Patient/guardian denies using tobacco. - Ebola Screening: : No symptoms or risks identified at this time. Screenin:18 Abuse screen: Denies threats or abuse. Denies injuries from another. Nutritional hj screening: No deficits noted. Tuberculosis screening: No symptoms or risk factors identified. Fall Risk None identified. Assessment: 14:39 GI: Bowel sounds present X 4 quads. Abd is soft Abdomen is tender to palpation. hj 14:39 General: Appears in no apparent distress. uncomfortable, Behavior is calm, cooperative, hj appropriate for age. Pain: Complains of pain in epigastric area and right upper quadrant. Neuro: Level of Consciousness is awake, alert, obeys commands, Oriented to person, place, time, situation, Appropriate for age. Cardiovascular: Capillary refill < 3 seconds Patient's skin is warm and dry. Respiratory: Airway is patent Respiratory effort is even, unlabored, Respiratory pattern is regular, symmetrical, Breath sounds are clear. : No signs and/or symptoms were reported regarding the genitourinary system. EENT: No signs and/or symptoms were reported regarding the EENT system. Derm: No signs and/or symptoms reported regarding the dermatologic system. Musculoskeletal: No deficits noted. 15:30 Reassessment: Patient and/or family updated on plan of care and expected duration. Pain hj level reassessed. Patient is alert, oriented x 3, equal unlabored respirations, skin warm/dry/pink. awaiting results and POC:. 16:06 Reassessment: Patient and/or family updated on plan of care and expected duration. Pain hj level reassessed. Patient is alert, oriented x 3, equal unlabored respirations, skin warm/dry/pink. for transfer to [facility];. 17:12 Reassessment: at CT:. hj Vital Signs: 14:17 BP 146 / 89; Pulse 81; Resp 16; Temp 98.4; Pulse Ox 98% on R/A; Weight 113.4 kg; Height la1 5 ft. 3 in. (160.02 cm); 15:30 BP 135 / 82; Pulse 82; Resp 18; Pulse Ox 98% on R/A; hj 16:03 BP 130 / 66; Pulse 84; Resp 18; Pulse Ox 99% on R/A; hj 17:11 BP 128 / 67; Pulse 82; Resp 18; Pulse Ox 99% on R/A; hj 14:17 Body Mass Index 44.29 (113.40 kg, 160.02 cm) la1 ED Course: 14:08 Patient arrived in ED. mr 14:08 Madhu Albarado MD is Private Physician. mr 14:17 Triage completed. la1 14:17 Arm band placed on right wrist. la1 14:18 Patient has correct armband on for positive identification. Placed in gown. Bed in low hj position. Call light in reach. Side rails up X 1. 14:20 Eddie Sykes, ERIC is Primary Nurse. hj 14:20 Homero Terrell MD is Attending Physician. vicente 14:35 Initial lab(s) drawn, by me, sent to lab. Inserted saline lock: 22 gauge in left hj antecubital area, using aseptic technique. Blood collected. 15:16 EKG done, by ED staff, reviewed by Homero Terrell MD. jb1 15:20 XRAY Chest (1 view) In Process Unspecified. EDMS 15:[address] Terrell with the [facility]. eb 16:03 [facility] called to decline transfer due to being at capacity. eb 16:[address] Terrell with Jocelin from the [facility] Transfer [facility]. eb 16:14 connected the GI lead applications developer for [facility] with Dr. Terrell for patient transfer eb consultation. 16:24 connected the hospitalist lead applications developer for [facility] with Dr. Terrell for patient eb transfer consultation. 16:41 administrative approval given by Jocelin [place] RN transfer iron operator/ patient has eb been accepted to [facility] 7 tower bed 701/ report to be called to [phone]/ Dr. Bosch has accepted the patient in transfer. 17:06 Urine collected: clean catch specimen, cloudy, steffen colored. jb1 17:09 CT Abd/Pelvis - PO and IV Contrast In Process Unspecified. EDMS 17:09 CT completed. Patient tolerated procedure well. Patient moved back from [place]. mw3 17:28 No provider procedures requiring assistance completed. Patient transferred, IV remains hj in place. intact. Administered Medications: 14:38 Drug: Zofran 4 mg Route: IVP; Site: left antecubital; hj 15:05 Follow up: Response: No adverse reaction; Nausea is decreased hj 15:04 Drug: Dilaudid 1 mg Route: IVP; Site: left antecubital; hj 15:06 Follow up: Response: No adverse reaction; Pain is decreased hj 15:04 Drug: NS 0.9% 1000 ml Route: IV; Rate: 125 ml/hr; Site: left antecubital; hj 15:06 Follow up: IV Status: Infusion continued hj 15:05 Drug: ProTONIX 40 mg Route: IVP; Site: left antecubital; hj 15:05 Follow up: Response: No adverse reaction hj 15:40 Drug: Lactulose 30 grams Volume: 45 ml; Route: PO; hj 15:49 Follow up: Response: No adverse reaction hj 15:48 Drug: Zofran 4 mg Route: IVP; Site: left antecubital; hj 15:49 Follow up: Response: No adverse reaction; Nausea is decreased hj 17:25 Drug: Zofran 4 mg Route: IVP; Site: left antecubital; hj 17:29 Follow up: Response: No adverse reaction; Nausea is decreased hj 18:04 Drug: Dilaudid 1 mg Route: IVP; Site: left antecubital; ls4 18:18 Follow up: Response: No adverse reaction ls4 Outcome: 15:55 ER care complete, transfer ordered by . vicente 17:28 Transferred by ground EMS to [facility], Transfer form completed. hj X-rays sent w/ patient. 17:28 Condition: stable 17:28 Instructed on the need for transfer, Demonstrated understanding of instructions. 18:19 Patient left the ED. ls4 Signatures: Dispatcher [employer] EDMS Daniel England jb1 Homero Terrell MD MD cha Rivera, Olivia mr Marco A Messina RN RN la1 Eddie Sykes RN RN hj Botello, Elizabeth eb Willis, Michelle mw3 Kaylene Lara, RN RN ls4 Corrections: (The following items were deleted from the chart) 16:19 14:16 Presenting complaint: la1 [place]
--- NOTE | 2018-09-30 15:56 | EDPHYS ---
Physician Documentation [facility] Name: Zenaida Goss Age: 58 yrs Sex: Female : 1960 Arrival Date: 09/30/2018 Time: 14:08 Bed 7 Private MD: Madhu Albarado R ED Physician Homero Terrell HPI: 09/30 14:49 This 58 yrs old Female presents to ER via Ambulatory with complaints of vicente Abdominal Pain, Nausea, Ankle Injury. 14:49 The patient presents to the emergency department with nausea, vomiting, abdominal pain, vicente of the epigastric area, right upper quadrant and left upper quadrant. Onset: The symptoms/episode began/occurred 2 day(s) ago. Possible causes: unknown. The symptoms are aggravated by nothing. The symptoms are alleviated by nothing. Associated signs and symptoms: Pertinent positives: abdominal pain, nausea, vomiting. Severity of symptoms: At their worst the symptoms were moderate in the emergency department the symptoms are unchanged. The patient has experienced similar episodes in the past, multiple times. Historical: - Allergies: 14:16 Morphine (Anaphylaxis); la1 - Home Meds: 14:16 Lactulose Oral [Active]; xyphaxine [Active]; hj - PMHx: 14:16 Anemia; Cirrhosis; fatty liver; Pancreatitis; varices; la1 - PSHx: 14:16 Appendectomy; Cholecystectomy; Lumpectomy; la1 - Immunization history:: Adult Immunizations up to date. - Social history:: Smoking status: Patient/guardian denies using tobacco. - Ebola Screening: : No symptoms or risks identified at this time. ROS: 14:50 Constitutional: Negative for fever, chills, and weight loss, Eyes: Negative for injury, vicente pain, redness, and discharge, ENT: Negative for injury, pain, and discharge, Neck: Negative for injury, pain, and swelling, Cardiovascular: Negative for chest pain, palpitations, and edema, Respiratory: Negative for shortness of breath, cough, wheezing, and pleuritic chest pain, Back: Negative for injury and pain, : Negative for injury, bleeding, discharge, and swelling, Skin: Negative for injury, rash, and discoloration, Neuro: Negative for headache, weakness, numbness, tingling, and seizure, Psych: Negative for depression, anxiety, suicide ideation, homicidal ideation, and hallucinations, Allergy/Immunology: Negative for hives, rash, and allergies, Endocrine: Negative for neck swelling, polydipsia, polyuria, polyphagia, and marked weight changes, Hematologic/Lymphatic: Negative for swollen nodes, abnormal bleeding, and unusual bruising. 14:50 Abdomen/GI: Positive for abdominal pain, of the right upper quadrant, left upper quadrant, right lower quadrant and left lower quadrant. 14:50 MS/extremity: Positive for decreased range of motion, pain, of the right leg and left leg. Exam: 14:50 Constitutional: This is a well developed, well nourished patient who is awake, alert, vicente and in no acute distress. Head/Face: Normocephalic, atraumatic. Eyes: Pupils equal round and reactive to light, extra-ocular motions intact. Lids and lashes normal. Conjunctiva and sclera are non-icteric and not injected. Cornea within normal limits. Periorbital areas with no swelling, redness, or edema. ENT: Nares patent. No nasal discharge, no septal abnormalities noted. Tympanic membranes are normal and external auditory canals are clear. Oropharynx with no redness, swelling, or masses, exudates, or evidence of obstruction, uvula midline. Mucous membranes moist. Neck: Trachea midline, no thyromegaly or masses palpated, and no cervical lymphadenopathy. Supple, full range of motion without nuchal rigidity, or vertebral point tenderness. No Meningismus. Chest/axilla: Normal chest wall appearance and motion. Nontender with no deformity. No lesions are appreciated. Cardiovascular: Regular rate and rhythm with a normal S1 and S2. No gallops, murmurs, or rubs. Normal PMI, no JVD. No pulse deficits. Respiratory: Lungs have equal breath sounds bilaterally, clear to auscultation and percussion. No rales, rhonchi or wheezes noted. No increased work of breathing, no retractions or nasal flaring. Back: No spinal tenderness. No costovertebral tenderness. Full range of motion. Skin: Warm, dry with normal turgor. Normal color with no rashes, no lesions, and no evidence of cellulitis. Neuro: Awake and alert, GCS 15, oriented to person, place, time, and situation. Cranial nerves II-XII grossly intact. Motor strength 5/5 in all extremities. Sensory grossly intact. Cerebellar exam normal. Normal gait. Psych: Awake, alert, with orientation to person, place and time. Behavior, mood, and affect are within normal limits. 14:50 Abdomen/GI: Inspection: distension, Bowel sounds: normal, Liver: no appreciated palpable abnormalities, Hernia: not appreciated. Vital Signs: 14:17 BP 146 / 89; Pulse 81; Resp 16; Temp 98.4; Pulse Ox 98% on R/A; Weight 113.4 kg; Height la1 5 ft. 3 in. (160.02 cm); 15:30 BP 135 / 82; Pulse 82; Resp 18; Pulse Ox 98% on R/A; hj 16:03 BP 130 / 66; Pulse 84; Resp 18; Pulse Ox 99% on R/A; hj 17:11 BP 128 / 67; Pulse 82; Resp 18; Pulse Ox 99% on R/A; hj 14:17 Body Mass Index 44.29 (113.40 kg, 160.02 cm) la1 MDM: 14:20 Patient medically screened. [facility] 14:52 Data reviewed: vital signs, nurses notes, lab test result(s), EKG, radiologic studies, [facility] CT scan, plain films. 09/30 14:49 Order name: Basic Metabolic Panel [facility] 09/30 14:49 Order name: CBC with Diff [facility] 09/30 14:49 Order name: LFT's [facility] 09/30 14:49 Order name: Magnesium [facility] 09/30 14:49 Order name: NT PRO-BNP [facility] 09/30 14:49 Order name: PT-INR [facility] 09/30 14:49 Order name: Troponin (emerg Dept Use Only); Complete Time: 15:38 [facility] 09/30 14:49 Order name: Lipase; Complete Time: 15:38 [facility] 09/30 14:49 Order name: Urine Culture [facility] 09/30 14:49 Order name: AMMONIA; Complete Time: 15:37 [facility] 09/30 14:51 Order name: Basic Metabolic Panel; Complete Time: 15:38 EDMS 09/30 14:51 Order name: CBC with Automated Diff [facility] 09/30 14:51 Order name: Liver (Hepatic) Function; Complete Time: 15:38 EDMS 09/30 14:51 Order name: Magnesium; Complete Time: 15:38 EDMS 09/30 14:49 Order name: XRAY Chest (1 view); Complete Time: 15:37 [facility] 09/30 14:49 Order name: EKG; Complete Time: 14:51 [facility] 09/30 14:49 Order name: Cardiac monitoring; Complete Time: 14:53 [facility] 09/30 14:49 Order name: EKG - Nurse/Tech; Complete Time: 15:05 [facility] 09/30 14:49 Order name: CT Abd/Pelvis - PO and IV Contrast; Complete Time: 18:00 [facility] 09/30 14:51 Order name: NT PRO-BNP; Complete Time: 15:38 EDPA 09/30 14:51 Order name: Protime (+INR); Complete Time: 15:37 [facility] 09/30 17:09 Order name: Urine Dipstick--Ancillary (enter results); Complete Time: 18:00 09/30 14:49 Order name: IV Saline Lock; Complete Time: 14:52 [facility] 09/30 14:49 Order name: Labs collected and sent; Complete Time: 14:52 [facility] 09/30 14:49 Order name: O2 Per Protocol; Complete Time: 14:52 [facility] 09/30 14:49 Order name: O2 Sat Monitoring; Complete Time: 14:52 [facility] 09/30 14:49 Order name: Urine Dipstick-Ancillary (obtain specimen); Complete Time: 17:06 [facility] Administered Medications: 14:38 Drug: Zofran 4 mg Route: IVP; Site: left antecubital; hj 15:05 Follow up: Response: No adverse reaction; Nausea is decreased hj 15:04 Drug: Dilaudid 1 mg Route: IVP; Site: left antecubital; hj 15:06 Follow up: Response: No adverse reaction; Pain is decreased hj 15:04 Drug: NS 0.9% 1000 ml Route: IV; Rate: 125 ml/hr; Site: left antecubital; hj 15:06 Follow up: IV Status: Infusion continued hj 15:05 Drug: ProTONIX 40 mg Route: IVP; Site: left antecubital; hj 15:05 Follow up: Response: No adverse reaction hj 15:40 Drug: Lactulose 30 grams Volume: 45 ml; Route: PO; hj 15:49 Follow up: Response: No adverse reaction hj 15:48 Drug: Zofran 4 mg Route: IVP; Site: left antecubital; hj 15:49 Follow up: Response: No adverse reaction; Nausea is decreased hj 17:25 Drug: Zofran 4 mg Route: IVP; Site: left antecubital; hj 17:29 Follow up: Response: No adverse reaction; Nausea is decreased hj 18:04 Drug: Dilaudid 1 mg Route: IVP; Site: left antecubital; ls4 18:18 Follow up: Response: No adverse reaction ls4 Disposition: 09/30/18 15:55 Transfer ordered to [facility]. Diagnosis are Unspecified cirrhosis of liver, Encephalopathy, unspecified, Acute pancreatitis - hx of. - Reason for transfer: Higher level of care. - Accepting physician is to [facility]. - Condition is Fair. - Problem is new. - Symptoms have improved. Signatures: Dispatcher [employer] EDMS Homero Terrell MD MD cha Attema, Lee RN RN la1 Eddie Sykes RN Kaylene Sanford RN RN ls4 Corrections: (The following items were deleted from the chart) 16:02 15:55 09/30/2018 15:55 Transfer ordered to [facility]. Diagnosis is vicente Abdominal tenderness; Unspecified cirrhosis of liver; Encephalopathy, unspecified. Reason for transfer: Higher level of care. Accepting physician is to [facility]. Condition is Fair. Problem is new. Symptoms have improved. [facility] 16:06 16:02 09/30/2018 15:55 Transfer ordered to [facility]. Diagnosis is vicente Abdominal tenderness; Unspecified cirrhosis of liver; Encephalopathy, unspecified; Acute pancreatitis. Reason for transfer: Higher level of care. Accepting physician is to [facility]. Condition is Fair. Problem is new. Symptoms have improved. [facility] 18:02 16:06 09/30/2018 15:55 Transfer ordered to [facility]. Diagnosis is vicente Abdominal tenderness; Unspecified cirrhosis of liver; Encephalopathy, unspecified; Acute pancreatitis. Reason for transfer: Higher level of care. Accepting physician is to [facility]. Condition is Fair. Problem is new. Symptoms have improved. [facility] 18:19 18:02 09/30/2018 15:55 Transfer ordered to [facility]. Diagnosis is ls4 Unspecified cirrhosis of liver; Encephalopathy, unspecified; Acute pancreatitis - hx of. Reason for transfer: Higher level of care. Accepting physician is to [facility]. Condition is Fair. Problem is new. Symptoms have improved. vicente
[2018-09-30] MEDS ORDERED: LACTULOSE 20 GM/30 ML UCUP ONE (15:58)
[2018-09-30 17:14] LABS: Urine Blood NEGATIVE (NEG); Urine Glucose NEGATIVE (NEG); Urine Protein 1+ (NEG)
--- NOTE | 2018-09-30 17:48 | RAD REPORT ---
EXAM DESCRIPTION: CT - Abdomen Pelvis W Contrast - 09/30/2018 5:09 pm CLINICAL HISTORY: Abdominal pain, history of anemia, cirrhosis fatty liver, prior episodes of pancre atitis, prior appendectomy and cholecystectomy COMPARISON: CT May 2018 TECHNIQUE: Biphasic, helical CT imaging of the abdomen and pelvis was performed following 100 ml non -ionic IV contrast. Oral contrast was given. All CT scans are performed using dose optimization technique as appropriate and may include automated exposure control or mA/KV adjustment according to patient size. FINDINGS: No suspicious findings in the lung bases. No pericardial thickening or effusion. No focal liver lesions identified. Pronounced nodularity of the liver capsule noted. Splenomegaly is present similar to comparison. No mass of the pancreatic parenchyma. No peripancreatic inflammatory s tranding. Upper abdominal varices noted. Cholecystectomy clips are present with no biliary tree dilat ation. No portal thrombus. Symmetric renal function is seen with no hydronephrosis or suspicious renal mass. No pyelonephritis o r acute parenchymal process. Bladder is tightly contracted limiting assessment. No bladder calculi se en. No uterine abnormality. Small ovarian cysts are present. On the right there are 2 abutting ovaria n cysts measuring 2.1 and 2.8 cm in size. These are not substantially different from May. No fal lopian tube dilatation. No adrenal abnormalities. No gastric dilatation. Most of the oral contrast remains within the stomach. Pierre of the antrum are mildly prominent. This could be a peristalsis artifact or a mild antritis. Overall appearance is not substantially different from May. No dilated small bowel or focal small bowel abnormality. No colon dilatation, wall thickening or mass . Appendix is absent by history. No free air, pneumatosis or free fluid. Trace amount of stranding is present in the peritoneal fat in the right lower quadrant. This is similar to comparison. No hernia, mass or bulky lymphadenopathy. Disc and bony degenerative changes are seen. No acute finding. IMPRESSION: No pancreatitis. Cirrhotic liver changes are present. No focal liver lesion identifiable. Pierre of the gastric antrum are mildly prominent. This is not substantially different from comparison . A mild gastric antritis would be possible given the upper abdominal pain pattern. GI tract is otherwise without acute finding. No acute or OUTREACH LIBRARIAN process.
[2018-09-30] MEDS ORDERED: HYDROMORPHONE HCL 2 MG/ML inj ONE (18:16)
[2018-09-30 18:55] VITALS: TEMP 98.4
[2018-09-30 18:58] VITALS: O2SAT 99
[2018-09-30 18:59] VITALS: BP 128/67
[2018-09-30 20:47] LABS: Blood Morphology Comment NOT SEEN (NOT SEEN); Platelet Estimate DECR; Urine White Blood Cell Casts OK
--- NOTE | 2018-10-02 07:56 | EKG ---
Test Date: 2018-09-30 Test Time: 15:00:00 Vp Scientific Affairs: EVANGELINA MEASUREMENT RESULTS: Intervals: Rate: 78 TX: 146 QRSD: 94 QT: 422 QTc: 481 [place]: P: 41 TX: 146 QRS: 52 T: 44 INTERPRETIVE STATEMENTS: Normal sinus rhythm Normal ECG Compared to ECG 08/25/2018 16:08:27 no significant change from previous ECG Electronically Signed On 10-02-18 07:54:43 CDT by Fabrizio Joe
== END 2018-09-30 18:19 | disposition short-term general hospital (02) ==
LOC: ER 14:05
DX: K74.60 Unspecified cirrhosis of liver (principal); G93.40 Encephalopathy, unspecified; K85.90 Acute pancreatitis without necrosis or infection, unspecified; Z88.5 Allergy status to narcotic agent
CPT/HCPCS: 36415; 71045; 74177; 80048; 80076; 81003; 82140; 83690; 83735; 83880; 84484; 85025; 85610; 87086; 87088; 93005; 96374; 96375; 99285; C9113; J1170; J2405; J7030; Q9967

== ENCOUNTER 2018-12-31 16:23 | Emergency (ER) | payer OTHER ==
--- OUTSIDE RECORDS SUMMARY | 2018-12-31 16:25 | XMS REPORT | Clinical Summary ---
:1960 Author Organization [facility] [employer] Address [address] [place] [id number] Care Team Providers Name Role Phone Madhu Miranda MD Primary Care Provider Allergies Not on File Medications Not on file Active Problems Not on file Encounters Date Type Specialty Care Team Description 09/30/2018 Intake Access N/A after 12/30/2017 Social History Tobacco Use Types Packs/Day Years [...] CANCER SCREENING 1982 BREAST CANCER SCREENING 2011 COLONOSCOPY SCREENING 2011 SHINGLES VACCINES (#1) 2011 INFLUENZA VACCINE 11/09/2018 Results Not on fileafter 12/30/2017 Advance Directives For more information, please contact: [phone] Type Date Recorded 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
--- OUTSIDE RECORDS SUMMARY | 2018-12-31 16:26 | XMS REPORT | Clinical Summary ---
:1960 Author Organization [facility] Address [address] [place] [address] Care Team Providers Name Role Phone Ruth Madhu Mary Primary Care Provider Allergies Active Allergy Reactions Severity Noted Date Comments Latex Rash Low 03/28/2017 Morphine Shortness Of Breath, High 06/30/2016 Throat closes, tongue Swelling swelling Medications Medication Sig Dispensed Refills Start Date End Date Status lactulose (CEPHULAC) Take 10 g by 0 Active 10 gram packet mouth 2 (two) times daily . rifAXIMin 550 mg Take 550 mg 0 Active TabIndications: by mouth 2 hepatic (two) times encephalopathy daily. ibuprofen Take 100 mg 0 09/30/2018 Discontinued (ADVIL,MOTRIN) 100 MG by mouth tablet every 6 (six) hours as needed for Fever. pantoprazole Take 20 mg 0 09/30/2018 Discontinued (PROTONIX) 20 MG by mouth tablet daily. pantoprazole Take 1 60 tablet 1 10/03/2018 11/02/2018 (PROTONIX) 40 MG tablet (40 tablet mg total) by mouth 2 (two) times daily for 30 days. cyanocobalamin Take 1 30 tablet 0 10/03/2018 11/02/2018 (VITAMIN B-12) 1000 tablet MCG tablet (1,000 mcg total) by mouth daily for 30 days. Active Problems Problem Noted Date Epigastric abdominal pain 09/30/2018 Other cirrhosis of liver 09/30/2018 Increased ammonia level 09/30/2018 Encounters Date Type Specialty Care Team Description 10/02/2018 Anesthesia Event Gastroenterology Zev Sheffield MD 10/02/2018 Surgery Gastroenterology Hunter Bernstein UPPER ENDOSCOPY MD Pj 09/30/2018 - [facility] General Internal HiroMartha Epigastric abdominal pain; 10/03/2018 Encounter Medicine MD Jocelyn Increased ammonia level; Jennifer Lora Other cirrhosis of liver (HCC); Nicole Bartholomew, H/O acute pancreatitis; Vitamin B12 deficiency Diane Holley MD Adio, Titilola R., MD 09/30/2018 Telephone Internal Medicine HiroMartha Abdominal Pain MD Jocelyn after 12/30/2017 Social History Tobacco Use Types Packs/Day Years Used Date Never Smoker Smokeless Tobacco: Never Used Alcohol Use Drinks/Week oz/Week Comments No Sex Assigned at Date Recorded Not on file Job Start Date Occupation Industry Not on file Not on file Not on file Travel History Travel Start Travel End No recent travel history available. Last Filed Vital Signs Vital Sign Reading Time Taken Blood Pressure 117/59 10/03/2018 3:35 PM CDT Pulse 90 10/03/2018 3:35 PM CDT Temperature 37.2 C (98.9 F) 10/03/2018 3:35 PM CDT Respiratory Rate 18 10/03/2018 3:35 PM CDT Oxygen Saturation 92% 10/03/2018 3:35 PM CDT Inhaled Oxygen Concentration - - Weight 116.8 kg (257 lb 9.6 oz) 09/30/2018 7:57 PM CDT Height 160 cm (5' 3") 09/30/2018 7:57 PM CDT Body Mass Index 45.63 09/30/2018 7:57 PM CDT Plan of Treatment Not on file Procedures Procedure Name Priority Date/Time Associated Comments Diagnosis REPORT OF PROCEDURE - 10/04/2018 12:20 ENDOSCOPY SCAN PM CDT RHYTHM STRIP - SCAN 10/04/2018 12:20 PM CDT XR CHEST 1 VIEW VERN 10/03/2018 6:57 Results for this PORTABLE/BEDSIDE AM CDT procedure are in the results section. CBC W/PLT COUNT & Routine 10/03/2018 5:45 Results for this AUTO DIFFERENTIAL AM CDT procedure are in the results section. CBC W/PLT COUNT & Routine 10/03/2018 5:45 Results for this AUTO DIFFERENTIAL AM CDT procedure are in the results section. MAGNESIUM Routine 10/03/2018 5:45 Results for this AM CDT procedure are in the results section. PROTHROMBIN TIME/INR Routine 10/03/2018 5:45 Results for this AM CDT procedure are in the results section. HEPATIC FUNCTION Routine 10/03/2018 5:45 Results for this PANEL AM CDT procedure are in the results section. BASIC METABOLIC PANEL Routine 10/03/2018 5:45 Results for this (7) AM CDT procedure are in the results section. REPORT OF PROCEDURE - 10/02/2018 5:07 ENDOSCOPY URL PM CDT ENDOSCOPIC 10/02/2018 3:00 Epigastric pain ULTRASOUND,W/ENDO PM CDT UPPER ENDOSCOPY 10/02/2018 3:00 Epigastric pain PM CDT (CELLAVISION MANUAL Routine 10/02/2018 4:37 Results for this DIFF) AM CDT procedure are in the results section. CBC W/PLT COUNT & Routine 10/02/2018 4:37 Results for this AUTO DIFFERENTIAL AM CDT procedure are in the results section. CBC W/PLT COUNT & Routine 10/02/2018 4:37 Results for this AUTO DIFFERENTIAL AM CDT procedure are in the results section. MAGNESIUM Routine 10/02/2018 4:37 Results for this AM CDT procedure are in the results section. PROTHROMBIN TIME/INR Routine 10/02/2018 4:37 Results for this AM CDT procedure are in the results section. HEPATIC FUNCTION Routine 10/02/2018 4:37 Results for this PANEL AM CDT procedure are in the results section. BASIC METABOLIC PANEL Routine 10/02/2018 4:37 Results for this (7) AM CDT procedure are in the results section. CBC W/PLT COUNT & Routine 10/01/2018 5:09 Results for this AUTO DIFFERENTIAL AM CDT procedure are in the results section. FERRITIN Routine 10/01/2018 5:09 Results for this AM CDT procedure are in the results section. IRON, TIBC, % SAT. Routine 10/01/2018 5:09 Results for this (WITHOUT FERRITIN) AM CDT procedure are in the results section. FOLATE, SERUM Routine 10/01/2018 5:09 Results for this AM CDT procedure are in the results section. VITAMIN B12 Routine 10/01/2018 5:09 Results for this AM CDT procedure are in the results section. LIPASE Routine 10/01/2018 5:09 Results for this AM CDT procedure are in the results section. LIPID PANEL Routine 10/01/2018 5:09 Results for this AM CDT procedure are in the results section. CBC W/PLT COUNT & Routine 10/01/2018 5:09 Results for this AUTO DIFFERENTIAL AM CDT procedure are in the results section. MAGNESIUM Routine 10/01/2018 5:09 Results for this AM CDT procedure are in the results section. PROTHROMBIN TIME/INR Routine 10/01/2018 5:09 Results for this AM CDT procedure are in the results section. HEPATIC FUNCTION Routine 10/01/2018 5:09 Results for this PANEL AM CDT procedure are in the results section. BASIC METABOLIC PANEL Routine 10/01/2018 5:09 Results for this (7) AM CDT procedure are in the results section. after 12/30/2017 Results EKG-SCANNED (10/04/2018 12:20 PM CDT) Narrative Performed At RHYTHM STRIP - SCAN (10/04/2018 12:20 PM CDT) Narrative Performed At XR chest 1 view portable / bedside (10/03/2018 6:57 AM CDT) Specimen Narrative Performed At FINAL REPORT [facility] CLINICAL HISTORY: SOB TECHNIQUE: 1 view of the chest. COMPARISON: None IMPRESSION: There is pulmonary vascular congestion with prominent lung markings bilaterally. Subpulmonic pleural effusions cannot be excluded. The cardiomediastinal silhouette is magnified by technique. Signed: Franky Hoyt MD Report Verified Date/Time:10/03/2018 07:50:47 Reading Location: [facility] Reading Room Procedure Note Interface, External Ris In - 10/03/2018 7:52 AM CDT FINAL REPORT CLINICAL HISTORY: SOB TECHNIQUE: 1 view of the chest. COMPARISON: None IMPRESSION: There is pulmonary vascular congestion with prominent lung markings bilaterally. Subpulmonic pleural effusions cannot be excluded. The cardiomediastinal silhouette is magnified by technique. Signed: Franky Hoyt MD Report Verified Date/Time: 10/03/2018 07:50:47 Reading Location: [facility] Radiology Reading Room Performing Organization Address City/State/Zipcode Phone Number GE RIS CBC with platelet count + automated diff (10/03/2018 5:45 AM CDT)Only the most recent of3 resultswithin the time period is included. WBC 2.4 (L) 3.5 - 10.5 K/L [facility] RBC 3.26 (L) 3.93 - 5.22 M/L [facility] Hemoglobin 9.6 (L) 11.2 - 15.7 GM/DL [facility] Hematocrit 30.8 (L) 34.1 - 44.9 % [facility] MCV 94.5 79.4 - 94.8 fL [facility] MCH 29.4 25.6 - 32.2 pg [facility] MCHC 31.2 (L) 32.2 - 35.5 GM/DL [facility] RDW 15.2 (H) 11.7 - 14.4 % [facility] Platelets 38 (L) 150 - 450 K/CU MM [facility] MPV 10.3 9.4 - 12.3 fL [facility] nRBC 0 0 - 0 /100 WBC [facility] % Neutros 57 % [facility] % Lymphs 26 % [facility] % Monos 11 % [facility] % Eos 6 % [facility] % Baso 0 % [facility] # Neutros 1.35 (L) 1.56 - 6.13 K/L [facility] # Lymphs 0.61 (L) 1.18 - 3.74 K/L [facility] # Monos 0.26 0.24 - 0.36 K/L [facility] # Eos 0.15 0.04 - 0.36 K/L [facility] # Baso 0.01 0.01 - 0.08 K/L [facility] Immature Granulocytes-Relative 0 0 - 1 % [facility] Specimen Blood Performing Organization Address City/[facility] Phone Number [address] [phone] CENTER Prothrombin time/INR (10/03/2018 5:45 AM CDT)Only the most recent of3 resultswithin the time period is included. Protime 15.2 (H) 11.9 - 14.2 seconds [facility] INR 1.3 <=5.9 [facility] Specimen Blood Narrative Performed At Effective 09/06/2018: PT Reference Range [facility] Change New: 11.9-14.2Previous: 11.7-14.7 RECOMMENDED COUMADIN/WARFARIN INR THERAPY RANGES STANDARD DOSE: 2.0-3.0Includes: PROPHYLAXIS for venous thrombosis, systemic embolization; TREATMENT for venous thrombosis and/or pulmonary embolus. HIGH RISK: Target INR is 2.5-3.5 for patients wiht mechanical heart valves. Performing Organization Address City/[facility] Vegas[facility] Phone Number [address] [address] CENTER Magnesium (10/03/2018 5:45 AM CDT)Only the most recent of3 resultswithin the time period is included. Magnesium 1.6 1.6 - 2.6 mg/dL [facility] Specimen Blood Performing Organization Address City/[facility] Phone Number [address] [address] [phone] CENTER Hepatic function panel (10/03/2018 5:45 AM CDT)Only the most recent of3 resultswithin the time period is included. Protein, Total 5.9 (L) 6.0 - 8.3 gm/dL [facility] Albumin 3.1 (L) 3.5 - 5.0 g/dL [facility] Total Bilirubin 2.0 (H) 0.2 - 1.2 mg/dL [facility] Bilirubin, Direct 1.0 (H) 0.1 - 0.5 mg/dL [facility] Alkaline Phosphatase 123 40 - 150 U/L [facility] AST 45 (H) 5 - 34 U/L [facility] ALT 35 6 - 55 U/L [facility] Specimen Blood Narrative Performed At Specimen slightly icteric [facility] Performing Organization Address City/State/Zipcode Phone Number [facility] [address] [place] [address] CENTER Basic metabolic panel (10/03/2018 5:45 AM CDT)Only the most recent of3 resultswithin the time period is included. Sodium 138 136 - 145 meq/L [facility] Potassium 4.0 3.5 - 5.1 meq/L [facility] Chloride 107 98 - 107 meq/L [facility] CO2 25 22 - 29 meq/L [facility] BUN 10 7 - 21 mg/dL [facility] Creatinine 0.65 0.57 - 1.25 mg/dL [facility] Glucose 99 70 - 105 mg/dL [facility] Calcium 8.2 (L) 8.4 - 10.2 mg/dL [facility] EGFR 94Comment: ESTIMATED GFR IS mL/min/1.73 sq m [facility] NOT ACCURATE [facility] CLEARANCE IN PREDICTING GLOMERULAR FILTRATION RATE. ESTIMATED GFR IS NOT APPLICABLE FOR DIALYSIS PATIENTS. Specimen Blood Narrative Performed At Specimen slightly icteric [facility] Performing Organization Address [facility]/Zipcode Phone Number [facility] [address] [place] [address] CENTER REPORT OF PROCEDURE - ENDOSCOPY URL (10/02/2018 5:07 PM CDT) Narrative Performed At Manual Differential (10/02/2018 4:37 AM CDT) % Neutros 70 % [facility] % Lymphs 21 % [facility] % Monos 9 % [facility] # Neutros 1.40 (L) 1.56 - 6.13 K/ul [facility] # Lymphs 0.42 (L) 1.18 - 3.74 K/ul [facility] # Monos 0.18 (L) 0.24 - 0.36 K/uL [facility] Total Counted 100 [facility] RBC Morphology Normal [facility] WBC Morphology Normal [facility] Platelet Morphology Normal [facility] Artifact Present [facility] Platelet Conc Decreased [facility] Specimen Blood Narrative Performed At Received comment: [facility] User comments: Slide comments: Performing Organization Address City/[facility]/Zipcode Phone Number [facility] [address] [place] [address] CENTER Iron, TIBC, % sat. (without ferritin) (10/01/2018 5:09 AM CDT) Iron 81.0 40.0 - 160.0 ug/dL [facility] TIBC 291 250 - 450 ug/dL [facility] Iron % Saturation 28 20 - 55 % [facility] Specimen Blood Performing Organization Address City/State/Zipcode Phone Number [address] [address] CENTER Lipase (10/01/2018 5:09 AM CDT) Lipase 35 8 - 78 U/L [facility] Specimen Blood Narrative Performed At Specimen slightly icteric [facility] Performing Organization Address City/[facility]/Zipcode Phone Number [address] [address] [phone] [place] Folate, Serum (10/01/2018 5:09 AM CDT) Folate 11.3 >=7.0 ng/mL [facility] Specimen Blood Performing Organization Address City/[facility] Phone Number [address] [address] [phone] [place] Ferritin (10/01/2018 5:09 AM CDT) Ferritin 21 5 - 275 ng/mL [facility] Specimen Blood Performing Organization Address City/[facility] Phone Number [address] [address] [phone] [place] Vitamin B12 (10/01/2018 5:09 AM CDT) Vitamin B12 178 (L) 213 - 816 pg/mL [facility] Specimen Blood Performing Organization Address City/[facility] Phone Number [address] [address] CENTER Lipid panel (10/01/2018 5:09 AM CDT) Triglycerides 64 mg/dL [facility] Cholesterol 142 mg/dL [facility] HDL 44 mg/dL [facility] LDL Calculated 85 mg/dL [facility] Specimen Blood Narrative Performed At Triglyceride Reference Range: [facility] Low Risk <150 [id number] High Risk 200-499 Very High Risk>=500 Cholesterol Reference Range: Low Risk <200 [id number] High Risk>240 HDL Cholesterol Reference Range: Low Risk >=60 High Risk <40 LDL Cholesterol Reference Range: Optimal<100 Near [id number] Very High >=190 Specimen slightly icteric Performing Organization Address City/State/Zipcode Phone Number [place] [phone] [place] [address] CENTER after 12/30/2017 Advance Directives For more information, please contact:[address] [phone] Code Status Date Activated Date Inactivated Comments Full Code 09/30/2018 8:45 PM 10/03/2018 7:37 PM This code status was determined by: Patient
--- OUTSIDE RECORDS SUMMARY | 2018-12-31 16:26 | XMS REPORT ---
:1960 [facility] Address [address] [place] [address] [place] [id number] Care Team Providers Name Role Phone AVI DAVEY Unavailable Unavailable ALEXA ESCALONA Unavailable Unavailable Problems This patient has no known problems. Allergies, Adverse Reactions, Alerts This patient has no known allergies or adverse reactions. Medications This patient has no known medications. Results Test Description Test Time Test Comments Text Results Atomic Results Result Comments RAD, CHEST, 1 2018-10-03 07:50:00 Reason for FINAL REPORT PATIENT ID: VIEW, NON DEPT exam:->SOBShould this be [id number] CLINICAL performed at the HISTORY: SOB TECHNIQUE: bedside?->Yes 1 view of the chest. COMPARISON: None IMPRESSION: There is pulmonary vascular congestion with prominent lung markings bilaterally. Subpulmonic pleural effusions cannot be excluded. The cardiomediastinal silhouette is magnified by technique. Signed: Franky Hoyt MDReport Verified Date/Time: 10/03/2018 07:50:47 Reading Location: [facility] Radiology Reading Room ESIUM 2018-10-03 07:37:00 Test Item Value Reference Range Comments MAGNESIUM (BEAKER) (test jkfa=429) 1.6 mg/dL 1.6-2.6 BASIC METABOLIC [id number] 07:37:00 Test Item Value Reference Range Comments SODIUM (BEAKER) (test 138 meq/L 136-145 jplm=560) POTASSIUM (BEAKER) (test 4.0 meq/L 3.5-5.1 hgqw=300) CHLORIDE (BEAKER) (test 107 meq/L 98-107 lrus=963) CO2 (BEAKER) (test 25 meq/L 22-29 cbcy=484) BLOOD UREA NITROGEN 10 mg/dL 7-21 (BEAKER) (test rkjp=836) CREATININE (BEAKER) (test 0.65 mg/dL 0.57-1.25 alss=081) GLUCOSE RANDOM (BEAKER) 99 mg/dL 70-105 (test qxth=527) CALCIUM (BEAKER) (test 8.2 mg/dL 8.4-10.2 casp=551) EGFR (BEAKER) (test 94 mL/min/1.73 sq m ESTIMATED GFR IS NOT qauq=2403) ACCURATE CREATININE CLEARANCE IN PREDICTING GLOMERULAR FILTRATION RATE. ESTIMATED GFR IS NOT APPLICABLE FOR DIALYSIS PATIENTS. Specimen slightly ictericHEPATIC FUNCTION [id number] 07:37:00 Test Item Value Reference Range Comments TOTAL PROTEIN (BEAKER) (test vivb=603) 5.9 gm/dL 6.0-8.3 ALBUMIN (BEAKER) (test sequ=2302) 3.1 g/dL 3.5-5.0 BILIRUBIN TOTAL (BEAKER) (test ynkr=790) 2.0 mg/dL 0.2-1.2 BILIRUBIN DIRECT (BEAKER) (test ouuz=247) 1.0 mg/dL 0.1-0.5 ALKALINE PHOSPHATASE (BEAKER) (test ohou=456) 123 U/L 40-150 AST (SGOT) (BEAKER) (test gcth=659) 45 U/L 5-34 ALT (SGPT) (BEAKER) (test xxfj=262) 35 U/L 6-55 Specimen slightly ictericPROTHROMBIN [id number] 06:25:00 Test Item Value Reference Range Comments PROTIME (BEAKER) (test cpng=272) 15.2 seconds 11.9-14.2 INR (BEAKER) (test wijo=863) 1.3 <=5.9 Effective 09/06/2018: PT Reference Range ChangeNew: 11.9-14.2 Previous: 11.7- 14.7RECOMMENDED COUMADIN/WARFARIN INR THERAPY RANGESSTANDARD DOSE: 2.0-3.0 Includes: PROPHYLAXIS for venous thrombosis, systemic embolization; TREATMENT for venous thrombosis and/or pulmonary embolus.HIGH RISK: Target INR is2.5-3.5 for patients wiht mechanical heart valves.CBC W/PLT COUNT & AUTO [id number] 06:16:00 Test Item Value Reference Range Comments WHITE BLOOD CELL COUNT (BEAKER) (test vtly=800) 2.4 K/ L 3.5-10.5 RED BLOOD CELL COUNT (BEAKER) (test sdoc=302) 3.26 M/ L 3.93-5.22 HEMOGLOBIN (BEAKER) (test uqsn=540) 9.6 GM/DL 11.2-15.7 HEMATOCRIT (BEAKER) (test fzfm=288) 30.8 % 34.1-44.9 MEAN CORPUSCULAR VOLUME (BEAKER) (test evii=170) 94.5 fL 79.4-94.8 MEAN CORPUSCULAR HEMOGLOBIN (BEAKER) (test 29.4 pg 25.6-32.2 bwcy=034) MEAN CORPUSCULAR HEMOGLOBIN CONC (BEAKER) (test 31.2 GM/DL 32.2-35.5 pajb=208) RED CELL DISTRIBUTION WIDTH (BEAKER) (test 15.2 % 11.7-14.4 sejw=481) PLATELET COUNT (BEAKER) (test woya=882) 38 K/CU MM 150-450 MEAN PLATELET VOLUME (BEAKER) (test erru=399) 10.3 fL 9.4-12.3 NUCLEATED RED BLOOD CELLS (BEAKER) (test 0 /100 WBC 0-0 ajtj=324) NEUTROPHILS RELATIVE PERCENT (BEAKER) (test 57 % vgts=737) LYMPHOCYTES RELATIVE PERCENT (BEAKER) (test 26 % vmsl=467) MONOCYTES RELATIVE PERCENT (BEAKER) (test 11 % qvyv=502) EOSINOPHILS RELATIVE PERCENT (BEAKER) (test 6 % obqe=943) BASOPHILS RELATIVE PERCENT (BEAKER) (test 0 % dawu=311) NEUTROPHILS ABSOLUTE COUNT (BEAKER) (test 1.35 K/ L 1.56-6.13 fkby=317) LYMPHOCYTES ABSOLUTE COUNT (BEAKER) (test 0.61 K/ L 1.18-3.74 viug=792) MONOCYTES ABSOLUTE COUNT (BEAKER) (test gojn=583) 0.26 K/ L 0.24-0.36 EOSINOPHILS ABSOLUTE COUNT (BEAKER) (test 0.15 K/ L 0.04-0.36 xsuo=139) BASOPHILS ABSOLUTE COUNT (BEAKER) (test hsou=691) 0.01 K/ L 0.01-0.08 IMMATURE GRANULOCYTES-RELATIVE PERCENT (BEAKER) 0 % 0-1 (test uzxs=3940) (CELLAVISION MANUAL DIFF)2018-10-02 09:41:00 Test Item Value Reference Range Comments NEUTROPHILS - REL (CELLAVISION)(BEAKER) (test 70 % rfvq=3900) LYMPHOCYTES - REL (CELLAVISION)(BEAKER) (test 21 % sghb=5859) MONOCYTES - REL (CELLAVISION)(BEAKER) (test 9 % ndog=6268) NEUTROPHILS - ABS (CELLAVISION)(BEAKER) (test 1.40 K/ul 1.56-6.13 ncvr=9490) LYMPHOCYTES - ABS (CELLAVISION)(BEAKER) (test 0.42 K/ul 1.18-3.74 vlwx=0555) MONOCYTES - ABS (CELLAVISION)(BEAKER) (test 0.18 K/uL 0.24-0.36 xrpa=0583) TOTAL COUNTED (BEAKER) (test vqsh=6605) 100 RBC MORPHOLOGY (BEAKER) (test idlu=686) Normal WBC MORPHOLOGY (BEAKER) (test lwre=924) Normal PLT MORPHOLOGY (BEAKER) (test sdzn=082) Normal ARTIFACT (CELLAVISION)(BEAKER) (test cqdv=6394) Present PLATELET CONCENTRATION (CELLAVISION)(BEAKER) (test Decreased crqo=9284) Received comment: User comments: Slide comments:[id number] 05:58:00 Test Item Value Reference Range Comments MAGNESIUM (BEAKER) (test fjko=020) 1.6 mg/dL 1.6-2.6 BASIC METABOLIC [id number] 05:58:00 Test Item Value Reference Range Comments SODIUM (BEAKER) (test 138 meq/L 136-145 hoit=846) POTASSIUM (BEAKER) (test 4.0 meq/L 3.5-5.1 gvkv=471) CHLORIDE (BEAKER) (test 107 meq/L 98-107 xozg=003) CO2 (BEAKER) (test 26 meq/L 22-29 bvbw=856) BLOOD UREA NITROGEN 12 mg/dL 7-21 (BEAKER) (test qczb=164) CREATININE (BEAKER) (test 0.64 mg/dL 0.57-1.25 nxcl=929) GLUCOSE RANDOM (BEAKER) 107 mg/dL 70-105 (test ghgq=864) CALCIUM (BEAKER) (test 8.0 mg/dL 8.4-10.2 txxi=156) EGFR (BEAKER) (test 96 mL/min/1.73 sq m ESTIMATED GFR IS NOT bchc=7430) ACCURATE CREATININE CLEARANCE IN PREDICTING GLOMERULAR FILTRATION RATE. ESTIMATED GFR IS NOT APPLICABLE FOR DIALYSIS PATIENTS. Specimen slightly ictericHEPATIC FUNCTION [id number] 05:58:00 Test Item Value Reference Range Comments TOTAL PROTEIN (BEAKER) (test cwpd=519) 5.8 gm/dL 6.0-8.3 ALBUMIN (BEAKER) (test hajq=5767) 3.0 g/dL 3.5-5.0 BILIRUBIN TOTAL (BEAKER) (test hhay=078) 2.2 mg/dL 0.2-1.2 BILIRUBIN DIRECT (BEAKER) (test swev=590) 1.1 mg/dL 0.1-0.5 ALKALINE PHOSPHATASE (BEAKER) (test ztti=614) 125 U/L 40-150 AST (SGOT) (BEAKER) (test vtbm=889) 49 U/L 5-34 ALT (SGPT) (BEAKER) (test jrso=619) 39 U/L 6-55 Specimen slightly ictericPROTHROMBIN [id number] 05:26:00 Test Item Value Reference Range Comments PROTIME (BEAKER) (test zxve=501) 15.3 seconds 11.9-14.2 INR (BEAKER) (test vejj=496) 1.3 <=5.9 Effective 09/06/2018: PT Reference Range ChangeNew: 11.9-14.2 Previous: 11.7- 14.7RECOMMENDED COUMADIN/WARFARIN INR THERAPY RANGESSTANDARD DOSE: 2.0-3.0 Includes: PROPHYLAXIS for venous thrombosis, systemic embolization; TREATMENT for venous thrombosis and/or pulmonary embolus.HIGH RISK: Target INR is2.5-3.5 for patients wiht mechanical heart valves.CBC W/PLT COUNT & AUTO [id number] 05:20:00 Test Item Value Reference Range Comments WHITE BLOOD CELL COUNT (BEAKER) (test ycio=465) 2.0 K/ L 3.5-10.5 RED BLOOD CELL COUNT (BEAKER) (test mmto=664) 3.20 M/ L 3.93-5.22 HEMOGLOBIN (BEAKER) (test iiip=420) 9.5 GM/DL 11.2-15.7 HEMATOCRIT (BEAKER) (test kllb=822) 30.5 % 34.1-44.9 MEAN CORPUSCULAR VOLUME (BEAKER) (test hrnr=424) 95.3 fL 79.4-94.8 MEAN CORPUSCULAR HEMOGLOBIN (BEAKER) (test 29.7 pg 25.6-32.2 pmsb=919) MEAN CORPUSCULAR HEMOGLOBIN CONC (BEAKER) (test 31.1 GM/DL 32.2-35.5 tfxv=229) RED CELL DISTRIBUTION WIDTH (BEAKER) (test 15.2 % 11.7-14.4 yxuo=397) PLATELET COUNT (BEAKER) (test mbgp=692) 39 K/CU MM 150-450 MEAN PLATELET VOLUME (BEAKER) (test jjqm=107) 10.9 fL 9.4-12.3 NUCLEATED RED BLOOD CELLS (BEAKER) (test 0 /100 WBC 0-0 kyop=660) VITAMIN [id number] 06:57:00 Test Item Value Reference Range Comments VITAMIN B12 (BEAKER) (test jksy=897) 178 pg/mL 213-816 [id number] 06:57:00 Test Item Value Reference Range Comments FERRITIN (BEAKER) (test yoiu=551) 21 ng/mL 5-275 FOLATE, [id number] 06:57:00 Test Item Value Reference Range Comments FOLATE (BEAKER) (test clbw=555) 11.3 ng/mL >=7.0 IRON, TIBC, % SAT. (WITHOUT FERRITIN)2018-10-01 05:59:00 Test Item Value Reference Range Comments IRON (BEAKER) (test ywff=881) 81.0 ug/dL 40.0-160.0 TOTAL IRON BINDING CAPACITY (BEAKER) (test 291 ug/dL 250-450 aajw=280) IRON % SATURATION (2) (BEAKER) (test bcng=2830) 28 % 20-55 [id number] 05:59:00 Test Item Value Reference Range Comments MAGNESIUM (BEAKER) (test onxx=255) 1.7 mg/dL 1.6-2.6 BASIC METABOLIC [id number] 05:59:00 Test Item Value Reference Range Comments SODIUM (BEAKER) (test 141 meq/L 136-145 feml=846) POTASSIUM (BEAKER) (test 4.0 meq/L 3.5-5.1 rtor=761) CHLORIDE (BEAKER) (test 110 meq/L 98-107 swmf=150) CO2 (BEAKER) (test 26 meq/L 22-29 xxza=578) BLOOD UREA NITROGEN 11 mg/dL 7-21 (BEAKER) (test yfud=660) CREATININE (BEAKER) (test 0.62 mg/dL 0.57-1.25 mhys=934) GLUCOSE RANDOM (BEAKER) 97 mg/dL 70-105 (test durj=447) CALCIUM (BEAKER) (test 8.4 mg/dL 8.4-10.2 zdmu=946) EGFR (BEAKER) (test 99 mL/min/1.73 sq m ESTIMATED GFR IS NOT igur=5197) ACCURATE CREATININE CLEARANCE IN PREDICTING GLOMERULAR FILTRATION RATE. ESTIMATED GFR IS NOT APPLICABLE FOR DIALYSIS PATIENTS. Specimen slightly ictericLIPID [id number] 05:59:00 Test Item Value Reference Range Comments TRIGLYCERIDES (BEAKER) (test alfg=023) 64 mg/dL CHOLESTEROL (BEAKER) (test bwxr=307) 142 mg/dL HDL CHOLESTEROL (BEAKER) (test ggas=959) 44 mg/dL LDL CHOLESTEROL CALCULATED (BEAKER) (test 85 mg/dL iqgk=194) Triglyceride Reference Range: Low Risk <150 Borderline 150- 199 High Risk 200-499 Very High Risk >=500Cholesterol Reference Range: Low Risk <200 Borderline 200-239 High Risk > 240HDL Cholesterol Reference Range: Low Risk >=60 High Risk <40LDL Cholesterol Reference Range: Optimal <100 Near Optimal 100-129 Borderline 130-159 High 160-189 Very High >=190 Specimen slightly ictericHEPATIC FUNCTION [id number] 05:59: 00 Test Item Value Reference Range Comments TOTAL PROTEIN (BEAKER) (test bvts=180) 6.1 gm/dL 6.0-8.3 ALBUMIN (BEAKER) (test jqth=3553) 3.2 g/dL 3.5-5.0 BILIRUBIN TOTAL (BEAKER) (test fcjh=127) 2.5 mg/dL 0.2-1.2 BILIRUBIN DIRECT (BEAKER) (test pskt=138) 1.2 mg/dL 0.1-0.5 ALKALINE PHOSPHATASE (BEAKER) (test ivol=153) 130 U/L 40-150 AST (SGOT) (BEAKER) (test uqsk=617) 47 U/L 5-34 ALT (SGPT) (BEAKER) (test ques=788) 41 U/L 6-55 Specimen slightly [id number] 05:59:00 Test Item Value Reference Range Comments LIPASE (BEAKER) (test ovga=324) 35 U/L 8-78 Specimen slightly ictericPROTHROMBIN [id number] 05:58:00 Test Item Value Reference Range Comments PROTIME (BEAKER) (test nbqa=583) 15.9 seconds 11.9-14.2 INR (BEAKER) (test edbf=239) 1.3 <=5.9 Effective 09/06/2018: PT Reference Range ChangeNew: 11.9-14.2 Previous: 11.7- 14.7RECOMMENDED COUMADIN/WARFARIN INR THERAPY RANGESSTANDARD DOSE: 2.0-3.0 Includes: PROPHYLAXIS for venous thrombosis, systemic embolization; TREATMENT for venous thrombosis and/or pulmonary embolus.HIGH RISK: Target INR is2.5-3.5 for patients wiht mechanical heart valves.CBC W/PLT COUNT & AUTO [id number] 05:37:00 Test Item Value Reference Range Comments WHITE BLOOD CELL COUNT (BEAKER) (test iglu=838) 2.4 K/ L 3.5-10.5 RED BLOOD CELL COUNT (BEAKER) (test ftxq=551) 3.39 M/ L 3.93-5.22 HEMOGLOBIN (BEAKER) (test wajm=943) 9.9 GM/DL 11.2-15.7 HEMATOCRIT (BEAKER) (test kanp=955) 31.8 % 34.1-44.9 MEAN CORPUSCULAR VOLUME (BEAKER) (test oldg=999) 93.8 fL 79.4-94.8 MEAN CORPUSCULAR HEMOGLOBIN (BEAKER) (test 29.2 pg 25.6-32.2 fokh=936) MEAN CORPUSCULAR HEMOGLOBIN CONC (BEAKER) (test 31.1 GM/DL 32.2-35.5 omax=022) RED CELL DISTRIBUTION WIDTH (BEAKER) (test 15.4 % 11.7-14.4 vbky=038) PLATELET COUNT (BEAKER) (test svsf=109) 38 K/CU MM 150-450 MEAN PLATELET VOLUME (BEAKER) (test ftwn=484) 10.2 fL 9.4-12.3 NUCLEATED RED BLOOD CELLS (BEAKER) (test 0 /100 WBC 0-0 mrrk=626) NEUTROPHILS RELATIVE PERCENT (BEAKER) (test 57 % gfop=653) LYMPHOCYTES RELATIVE PERCENT (BEAKER) (test 27 % bbjl=518) MONOCYTES RELATIVE PERCENT (BEAKER) (test 10 % jqbb=323) EOSINOPHILS RELATIVE PERCENT (BEAKER) (test 5 % tgvn=955) BASOPHILS RELATIVE PERCENT (BEAKER) (test 1 % ywpy=686) NEUTROPHILS ABSOLUTE COUNT (BEAKER) (test 1.38 K/ L 1.56-6.13 samw=706) LYMPHOCYTES ABSOLUTE COUNT (BEAKER) (test 0.65 K/ L 1.18-3.74 qqao=853) MONOCYTES ABSOLUTE COUNT (BEAKER) (test qkfz=313) 0.24 K/ L 0.24-0.36 EOSINOPHILS ABSOLUTE COUNT (BEAKER) (test 0.12 K/ L 0.04-0.36 dsow=133) BASOPHILS ABSOLUTE COUNT (BEAKER) (test hntf=690) 0.02 K/ L 0.01-0.08 IMMATURE GRANULOCYTES-RELATIVE PERCENT (BEAKER) 0 % 0-1 (test dsur=6448) POCT-HEMOGLOBIN [id number] 06:12:00 Test Item Value Reference Range Comments POC-HEMOGLOBIN METER (BEAKER) 8.6 g/dL 12.0-15.0 TESTED AT [facility] [address] (test wtgu=9476) [facility] [id number]
[2018-12-31] MEDS ORDERED: METOCLOPRAMIDE 10 MG/2mL INJ ONE (17:02)
[2018-12-31] MEDS ORDERED: DIPHENHYDRAMINE 50 MG/ML VIAL ONE (17:02)
[2018-12-31] MEDS ORDERED: ONDANSETRON 4 MG/2 ML VIAL ONE (17:02)
[2018-12-31 17:28] LABS: Absolute Lymphocytes (CBC) 0.6 K/uL (0.7-4.9); Basophils % 0.6 % (0-1.3); Hematocrit 30.5 % (36.0-45.0); Lymphocytes % 23.4 % (15.3-44.8); MPV 8.2 fL (7.6-11.3); RBC Red Blood Cell Count 3.59 M/uL (3.86-4.86)
[2018-12-31 17:50] LABS: ALT/SGPT 44 U/L (12-78); AST/SGOT 42 U/L (15-37); Albumin 3.1 g/dL (3.4-5.0); Alkaline Phosphatase 166 U/L (45-117); BUN Blood Urea Nitrogen 8 mg/dL (7-18); Bicarbonate 24 mmol/L (21-32); Bilirubin Direct 0.6 mg/dL (0-0.2); Bilirubin Total 1.6 mg/dL (0.2-1.0); Glucose Level 102 mg/dL (74-106); Lipase 308 U/L (73-393); Potassium 3.9 mmol/L (3.5-5.1); Protein, Total 6.6 g/dL (6.4-8.2); Sodium Level 142 mmol/L (136-145); Troponin (Emerg Dept Use Only) < 0.02 ng/mL (0.0-0.045)
--- NOTE | 2018-12-31 18:08 | RAD REPORT ---
EXAM DESCRIPTION: RAD - Chest Single View - 12/31/2018 5:27 pm CLINICAL HISTORY: Dyspnea COMPARISON: September 30, 2018 TECHNIQUE: AP portable chest image was obtained 1719 hours . FINDINGS: Lung volumes are low but similar to comparison. This could mask minimal failure or volume overload. No peripheral mass or consolidation. Heart and vasculature are normal. No measurable pleura l effusion and no pneumothorax. No acute bony abnormality seen. No acute aortic findings suspected. IMPRESSION: Limited portable chest examination without acute cardiopulmonary finding. Minimal or early failure or volume overload can be masked.
--- NOTE | 2018-12-31 19:15 | ER ---
Nurse's Notes [facility] Name: Zenaida Goss Age: 58 yrs Sex: Female : 1960 Arrival Date: 12/31/2018 Time: 16:25 Bed 25 Private MD: Madhu Albarado R Diagnosis: Liver disease, unspecified;Edema, unspecified;Anemia in other chronic diseases classified elsewhere Presentation: 12/31 16:28 Presenting complaint: Patient states: I am having a lot of pressure in my head and I la1 have been feeling very fatigued and SOB. Transition of care: patient was not received from another setting of care. Onset of symptoms was December 31, 2018. Risk Assessment: Do you want to hurt yourself or someone else? Patient reports no desire to harm self or others. Initial Sepsis Screen: Does the patient meet any 2 criteria? No. Patient's initial sepsis screen is negative. Does the patient have a suspected source of infection? No. Patient's initial sepsis screen is negative. Care prior to arrival: None. 16:28 Method Of Arrival: Ambulatory la1 16:28 Acuity: TANK 3 la1 Triage Assessment: 17:40 Pain: Complains of pain in head. mg2 18:01 Headache History: The patient has had previous headaches. General: Appears in no mg2 apparent distress. comfortable, Behavior is calm, cooperative. Pain: Pain began gradually, Also complains of no other associated symptoms. Historical: - Allergies: 16:28 Morphine (Anaphylaxis); la1 - Home Meds: 18:02 Lactulose Oral [Active]; xyphaxine [Active]; mg2 - PMHx: 16:28 Cirrhosis; Anemia; fatty liver; Pancreatitis; varices; la1 - Immunization history:: Adult Immunizations up to date. - Social history:: Smoking status: unknown Patient/guardian denies using alcohol, street drugs, The patient lives with family. - Ebola Screening: : No symptoms or risks identified at this time. - Family history:: not pertinent. Screenin:34 Abuse screen: Denies threats or abuse. Denies injuries from another. Nutritional mg2 screening: No deficits noted. Tuberculosis screening: No symptoms or risk factors identified. 18:39 Fall Risk IV access (20 points). mg2 Assessment: 17:39 General: Appears in no apparent distress. comfortable, Behavior is calm, cooperative. mg2 Pain: Complains of pain in abdomen, head Pain does not radiate. Pain currently is 2 out of 10 on a pain scale. Neuro: Level of Consciousness is awake, alert, obeys commands, Oriented to person, place, time, situation. Neuro: Reports headache. Cardiovascular: Capillary refill < 3 seconds Patient's skin is warm and dry. Respiratory: Airway is patent Respiratory effort is even, unlabored, Respiratory pattern is regular, symmetrical. GI: Reports lower abdominal pain, upper abdominal pain. : No signs and/or symptoms were reported regarding the genitourinary system. EENT: No signs and/or symptoms were reported regarding the EENT system. Derm: Skin is intact, is healthy with good turgor, Skin is pink, warm \T\ dry. normal. Musculoskeletal: Capillary refill < 3 seconds. 18:03 Reassessment: patient reported pain-free after receiving the medications. mg2 18:45 Reassessment: Patient appears in no apparent distress at this time. Patient denies pain mg2 at this time. Patient states feeling better. Patient states symptoms have improved. Vital Signs: 16:29 BP 135 / 64; Pulse 97; Resp 16; Temp 98.4; Pulse Ox 99% on R/A; Weight 117.93 kg; la1 Height 5 ft. 4 in. (162.56 cm); 18:03 BP 148 / 65; Pulse 90; Resp 18; Pulse Ox 100% on R/A; Pain 0/10; mg2 18:45 BP 135 / 78; Pulse 90; Resp 18; Temp 98; Pulse Ox 100% on R/A; Pain 0/10; mg2 16:29 Body Mass Index 44.63 (117.93 kg, 162.56 cm) la1 ED Course: 16:25 Patient arrived in ED. mr 16:25 Madhu Albarado MD is Private Physician. mr 16:28 Arm band placed on left wrist. la1 16:29 Triage completed. la1 16:32 Jovanny Cantor, ERIC is Primary Nurse. mg2 16:32 Osmar Sutherland MD is Attending Physician. ma2 16:53 Patient has correct armband on for positive identification. mg2 17:29 Chest Single View XRAY In Process Unspecified. EDMS 17:29 No provider procedures requiring assistance completed. Inserted saline lock: 22 gauge mg2 in left hand, using aseptic technique. Blood collected. 18:18 Hamzah Reynolds MD is Referral Physician. ma2 18:46 IV discontinued, intact, bleeding controlled, No redness/swelling at site. Pressure mg2 dressing applied. Administered Medications: 17:28 Drug: Reglan 10 mg Route: IVP; Site: left hand; mg2 18:41 Follow up: Response: No adverse reaction; Marked relief of symptoms mg2 18:45 Follow up: Response: No adverse reaction; Marked relief of symptoms mg2 17:28 Drug: Benadryl 25 mg Route: IVP; Site: left hand; mg2 18:40 Follow up: Response: No adverse reaction; Marked relief of symptoms mg2 18:44 Follow up: Response: No adverse reaction; Marked relief of symptoms mg2 17:29 Drug: Zofran 4 mg Route: IVP; Site: left hand; mg2 18:41 Follow up: Response: No adverse reaction; Marked relief of symptoms mg2 18:45 Follow up: Response: No adverse reaction; Marked relief of symptoms mg2 Outcome: 18:19 Discharge ordered by . ma2 18:46 Discharged to home ambulatory, with family. mg2 18:46 Condition: stable 18:46 Discharge instructions given to patient, family, Instructed on discharge instructions, follow up and referral plans. medication usage, Demonstrated understanding of instructions, follow-up care, medications, Prescriptions given X 3. 18:46 Patient left the ED. mg2 Signatures: Dispatcher [employer] Olivia Freed Lee, RN RN la1 Osmar Sutherland MD MD ma2 Jovanny Cantor RN RN mg2
--- NOTE | 2018-12-31 19:16 | EDPHYS ---
Physician Documentation [facility] Name: Zenaida Goss Age: 58 yrs Sex: Female : 1960 Arrival Date: 12/31/2018 Time: 16:25 Bed 25 Private MD: Madhu Albarado R ED Physician Osmar Sutherland HPI: 12/31 18:16 This 58 yrs old Female presents to ER via Ambulatory with complaints of ma2 Headache, Breathing Difficulty. 18:16 The patient complains of pain to the forehead. Onset: The symptoms/episode ma2 began/occurred gradually, 1 day(s) ago. Severity of symptoms: At its worst the pain was mild, in the emergency department the pain has resolved. Headache History: The patient has had previous headaches and this one is similar to previous episodes. The patient has experienced similar episodes in the past. Historical: - Allergies: 16:28 Morphine (Anaphylaxis); la1 - Home Meds: 18:02 Lactulose Oral [Active]; xyphaxine [Active]; mg2 - PMHx: 16:28 Cirrhosis; Anemia; fatty liver; Pancreatitis; varices; la1 - Immunization history:: Adult Immunizations up to date. - Social history:: Smoking status: unknown Patient/guardian denies using alcohol, street drugs, The patient lives with family. - Ebola Screening: : No symptoms or risks identified at this time. - Family history:: not pertinent. ROS: 18:16 Constitutional: Negative for fever, chills, and weight loss. ma2 18:16 All other systems are negative. Exam: 18:16 Constitutional: This is a well developed, well nourished patient who is awake, alert, ma2 and in no acute distress. Head/Face: Normocephalic, atraumatic. Eyes: Pupils equal round and reactive to light, extra-ocular motions intact. Lids and lashes normal. Conjunctiva and sclera are non-icteric and not injected. Cornea within normal limits. Periorbital areas with no swelling, redness, or edema. ENT: Nares patent. No nasal discharge, no septal abnormalities noted. Tympanic membranes are normal and external auditory canals are clear. Oropharynx with no redness, swelling, or masses, exudates, or evidence of obstruction, uvula midline. Mucous membranes moist. Neck: Trachea midline, no thyromegaly or masses palpated, and no cervical lymphadenopathy. Supple, full range of motion without nuchal rigidity, or vertebral point tenderness. No Meningismus. Chest/axilla: Normal chest wall appearance and motion. Nontender with no deformity. No lesions are appreciated. Cardiovascular: Regular rate and rhythm with a normal S1 and S2. No gallops, murmurs, or rubs. Normal PMI, no JVD. No pulse deficits. Respiratory: Lungs have equal breath sounds bilaterally, clear to auscultation and percussion. No rales, rhonchi or wheezes noted. No increased work of breathing, no retractions or nasal flaring. Abdomen/GI: Soft, non-tender, with normal bowel sounds. No distension or tympany. No guarding or rebound. No evidence of tenderness throughout. Back: No spinal tenderness. No costovertebral tenderness. Full range of motion. Skin: Warm, dry with normal turgor. Normal color with no rashes, no lesions, and no evidence of cellulitis. MS/ Extremity: + 2+ LE edema pitting equal bilat.. Pulses equal, no cyanosis. Neurovascular intact. Full, normal range of motion. Neuro: Awake and alert, GCS 15, oriented to person, place, time, and situation. Cranial nerves II-XII grossly intact. Motor strength 5/5 in all extremities. Sensory grossly intact. Cerebellar exam normal. Normal gait. Vital Signs: 16:29 BP 135 / 64; Pulse 97; Resp 16; Temp 98.4; Pulse Ox 99% on R/A; Weight 117.93 kg; la1 Height 5 ft. 4 in. (162.56 cm); 18:03 BP 148 / 65; Pulse 90; Resp 18; Pulse Ox 100% on R/A; Pain 0/10; mg2 18:45 BP 135 / 78; Pulse 90; Resp 18; Temp 98; Pulse Ox 100% on R/A; Pain 0/10; mg2 16:29 Body Mass Index 44.63 (117.93 kg, 162.56 cm) la1 MDM: 16:32 Patient medically screened. ma2 18:16 Differential diagnosis: migraine, tension headache, uremia. Data reviewed: vital signs, ma2 nurses notes. Counseling: I had a detailed discussion with the patient and/or guardian regarding: the historical points, exam findings, and any diagnostic results supporting the discharge/admit diagnosis, the presence of at least one elevated blood pressure reading (>120/80) during this emergency department visit, the need for outpatient follow up. Response to treatment: the patient's symptoms have resolved after treatment. ED course: she has elevated liver enzyme, want to go home and see her gi doctor in 2 days, i will prescribe lactulose and lasix as she has LE edema. and abd swelling from cld that is likely affecting her breathing . 12/31 16:49 Order name: Basic Metabolic Panel; Complete Time: 18:11 [facility] 12/31 16:49 Order name: CBC with Diff; Complete Time: 17:44 [facility] 12/31 16:49 Order name: Creatinine for Radiology; Complete Time: 18:11 [facility] 12/31 16:49 Order name: Hepatic Function; Complete Time: 18:11 [facility] 12/31 16:49 Order name: Lipase; Complete Time: 18:11 [facility] 12/31 16:49 Order name: Troponin (emerg Dept Use Only); Complete Time: 18:11 [facility] 12/31 16:49 Order name: IV Saline Lock; Complete Time: 17:29 [facility] 12/31 16:49 Order name: Labs collected and sent; Complete Time: 17:29 [facility] 12/31 16:49 Order name: Chest Single View XRAY ma2 Administered Medications: 17:28 Drug: Reglan 10 mg Route: IVP; Site: left hand; mg2 18:41 Follow up: Response: No adverse reaction; Marked relief of symptoms mg2 18:45 Follow up: Response: No adverse reaction; Marked relief of symptoms mg2 17:28 Drug: Benadryl 25 mg Route: IVP; Site: left hand; mg2 18:40 Follow up: Response: No adverse reaction; Marked relief of symptoms mg2 18:44 Follow up: Response: No adverse reaction; Marked relief of symptoms mg2 17:29 Drug: Zofran 4 mg Route: IVP; Site: left hand; mg2 18:41 Follow up: Response: No adverse reaction; Marked relief of symptoms mg2 18:45 Follow up: Response: No adverse reaction; Marked relief of symptoms mg2 Disposition: 12/31/18 18:19 Discharged to Home. Impression: Liver disease, unspecified, Edema, unspecified, Anemia in other chronic diseases classified elsewhere. - Condition is Stable. - Discharge Instructions: Alcoholic Liver Disease. - Prescriptions for Reglan 10 mg Oral Tablet - take 1 tablet by ORAL route every 6 hours . take 30 minutes before meals and at bedtime; 100 tablet. Lasix 20 mg Oral Tablet - take 1 tablet by ORAL route once daily; 20 tablet. Lactulose 10 gram/15 mL Oral Solution - take 30 milliliter by ORAL route once daily; 300 milliliter. - Medication Reconciliation Form, Thank You Letter, Antibiotic Education, Prescription Opioid Use form. - Follow up: Hamzah Reynolds MD; When: Tomorrow; Reason: Continuance of care. Signatures: Dispatcher [employer] EDMS Marco A Messina RN RN la1 Osamr Sutherland MD MD ma2 Jovanny Cantor RN RN mg2 Corrections: (The following items were deleted from the chart) 18:46 18:19 12/31/2018 18:19 Discharged to Home. Impression: Liver disease, unspecified; mg2 Edema, unspecified; Anemia in other chronic diseases classified elsewhere. Condition is Stable. Forms are Medication Reconciliation Form, Thank You Letter, Antibiotic Education, Prescription Opioid Use. Follow up: Hamzah Reynolds; When: Tomorrow; Reason: Continuance of care. ma2
[2018-12-31 19:35] VITALS: O2SAT 100
[2018-12-31 19:38] VITALS: BP 135/78; TEMP 98
== END 2018-12-31 18:46 | disposition home or self-care (01) ==
LOC: ER 16:23
DX: K74.60 Unspecified cirrhosis of liver (principal); D63.8 Anemia in other chronic diseases classified elsewhere; R60.9 Edema, unspecified; Z88.5 Allergy status to narcotic agent
CPT/HCPCS: 85025; 80048; 36415; 80076; 84484; 83690; 71045; 96375; 96374; 99284; J2765; J2405

== ENCOUNTER 2019-01-13 20:32 | Emergency (ER) | payer OTHER ==
[2019-01-13 21:14] LABS: Absolute Lymphocytes (CBC) 0.7 K/uL (0.7-4.9); Basophils % 0.9 % (0-1.3); Hematocrit 31.1 % (36.0-45.0); Lymphocytes % 26.2 % (15.3-44.8); MPV 7.9 fL (7.6-11.3); Protime INR 1.19; RBC Red Blood Cell Count 3.64 M/uL (3.86-4.86)
[2019-01-13 21:32] LABS: ALT/SGPT 50 U/L (12-78); AST/SGOT 46 U/L (15-37); Albumin 3.3 g/dL (3.4-5.0); Alkaline Phosphatase 153 U/L (45-117); BUN Blood Urea Nitrogen 11 mg/dL (7-18); Bicarbonate 28 mmol/L (21-32); Bilirubin Direct 0.5 mg/dL (0-0.2); Bilirubin Total 1.2 mg/dL (0.2-1.0); Glucose Level 85 mg/dL (74-106); Magnesium 1.9 mg/dL (1.8-2.4); NT PRO-BNP 36 pg/mL (<125); Potassium 4.1 mmol/L (3.5-5.1); Protein, Total 6.8 g/dL (6.4-8.2); Sodium Level 143 mmol/L (136-145); Troponin (Emerg Dept Use Only) < 0.02 ng/mL (0.0-0.045)
[2019-01-13] MEDS ORDERED: ONDANSETRON 4 MG/2 ML VIAL ONE (21:42)
[2019-01-13] MEDS ORDERED: KETOROLAC 30 MG/ML INJ ONE (21:42)
[2019-01-13 21:49] LABS: Blood Morphology Comment NOTED (NOT SEEN); Platelet Estimate DECR; Urine White Blood Cell Casts OK
--- NOTE | 2019-01-14 00:11 | ER ---
Nurse's Notes [facility] Name: Zenaida Goss Age: 58 yrs Sex: Female : 1960 Arrival Date: 01/13/2019 Time: 20:36 Bed 14 Private MD: Diagnosis: atypical chest pain Presentation: 01/13 20:36 Presenting complaint: Patient states: Yesterday she started having sore throat, nasal aj1 congestion, she was seen at [facility] last night and diagnosed with pneumonia and bronchitis, they told her if she did not feel better by today to come to the ER. She was discharged home with Zithromax, some cough medication with codeine, and albuterol for her nebulizer. Patient states that she is feeling worse today. Denies fever. Transition of care: patient was not received from another setting of care. Onset of symptoms was January 13, 2019. Risk Assessment: Do you want to hurt yourself or someone else? Patient reports no desire to harm self or others. Initial Sepsis Screen: Does the patient meet any 2 criteria? No. Patient's initial sepsis screen is negative. Does the patient have a suspected source of infection? Yes: Productive cough/pneumonia. Care prior to arrival: None. 20:36 Method Of Arrival: Wheelchair aj1 20:36 Acuity: TANK 3 aj1 Triage Assessment: 20:40 General: Appears in no apparent distress. comfortable, Behavior is calm, cooperative, aj1 appropriate for age. Pain: Complains of pain in chest Pain currently is 9 out of 10 on a pain scale. Neuro: Level of Consciousness is awake, alert, obeys commands, Oriented to person, place, time, situation. Cardiovascular: Reports chest pain. Respiratory: Airway is patent Respiratory effort is even, unlabored, Respiratory pattern is regular, symmetrical. Historical: - Allergies: 20:40 Morphine (Anaphylaxis); aj1 - Home Meds: 20:40 Lactulose Oral [Active]; Albuterol Nebulizer [Active]; xyphaxine [Active]; aj1 - PMHx: 20:40 Anemia; Cirrhosis; fatty liver; Pancreatitis; varices; aj1 - Immunization history:: Flu vaccine is not up to date. - Social history:: Smoking status: Patient/guardian denies using tobacco. - Ebola Screening: : Patient denies travel to an Ebola-affected area in the 21 days before illness onset. Screenin/06 00:33 Abuse screen: Denies threats or abuse. Nutritional screening: No deficits noted. ea Tuberculosis screening: No symptoms or risk factors identified. Fall Risk None identified. Assessment: 01/13 21:00 General: Appears in no apparent distress. uncomfortable, Behavior is calm, cooperative, jb4 appropriate for age. Pain: Complains of pain in back and chest Pain does not radiate. Pain currently is 8 out of 10 on a pain scale. Quality of pain is described as stabbing, Pain began 1 day ago. Neuro: Level of Consciousness is awake, alert, obeys commands, Oriented to person, place, time, situation. Cardiovascular: Patient's skin is warm and dry. Respiratory: Airway is patent Respiratory effort is even, unlabored, Respiratory pattern is regular, symmetrical. GI: No deficits noted. No signs and/or symptoms were reported involving the gastrointestinal system. : No deficits noted. No signs and/or symptoms were reported regarding the genitourinary system. EENT: No deficits noted. No signs and/or symptoms were reported regarding the EENT system. Derm: Skin is intact, Skin is pink, warm \T\ dry. Musculoskeletal: Circulation, motion, and sensation intact. Range of motion: intact in all extremities. 22:00 Reassessment: Patient appears in no apparent distress at this time. Patient and/or jb4 family updated on plan of care and expected duration. Pain level reassessed. Patient is alert, oriented x 3, equal unlabored respirations, skin warm/dry/pink. 23:00 Reassessment: Patient appears in no apparent distress at this time. Patient and/or jb4 family updated on plan of care and expected duration. Pain level reassessed. Patient is alert, oriented x 3, equal unlabored respirations, skin warm/dry/pink. 01/14 00:00 Reassessment: Patient appears in no apparent distress at this time. Patient and/or jb4 family updated on plan of care and expected duration. Pain level reassessed. Patient is alert, oriented x 3, equal unlabored respirations, skin warm/dry/pink. 00:30 Reassessment: Patient and/or family updated on plan of care and expected duration. Pain ea level reassessed. Patient is alert, oriented x 3, equal unlabored respirations, skin warm/dry/pink. Discharge instruction given to patient, verbalize the understanding of instruction. Pt left ED ambulatory accompanied by family. Pt tolerating well. Vital Signs: 01/13 20:40 BP 134 / 50; Pulse 85; Resp 18; Temp 99.0; Pulse Ox 97% on R/A; Weight 113.4 kg (R); aj1 Height 5 ft. 3 in. (160.02 cm) (R); 21:33 BP 140 / 68; Pulse 84; Resp 16; Pulse Ox 100% on R/A; mt 23:30 BP 115 / 51; Pulse 75; Resp 16; Pulse Ox 100% on R/A; jb4 20:40 Body Mass Index 44.29 (113.40 kg, 160.02 cm) aj1 ED Course: 20:36 Patient arrived in ED. aj1 20:39 Triage completed. aj1 20:40 Arm band placed on Patient placed in an exam room. aj1 20:47 Jozef Youssef MD is Attending Physician. tw4 21:07 EKG done, by ED staff, reviewed by Jozef Youssef MD. Inserted saline lock: 20 gauge mt in left antecubital area, using aseptic technique. Blood collected. 21:45 Gilberto Hoang, RN is Primary Nurse. jb4 22:08 CT completed. Patient tolerated procedure well. Patient moved back from CT. bq 22:34 CT Chest For PE Angio In Process Unspecified. EDMS 01/14 00:37 No provider procedures requiring assistance completed. IV discontinued, intact, fc bleeding controlled, No redness/swelling at site. Pressure dressing applied. Patient maintains SpO2 saturation greater than 95% on room air. 01:07 XRAY Chest (1 view) In Process Unspecified. EDMS Administered Medications: 01/13 21:57 Drug: TORadol 30 mg Route: IVP; Site: left antecubital; jb4 22:20 Follow up: Response: No adverse reaction; Pain is decreased jb4 21:58 Drug: Zofran 4 mg Route: IVP; Site: left antecubital; jb4 22:20 Follow up: Response: No adverse reaction; Nausea is decreased jb4 01/14 00:15 Drug: TORadol 60 mg Route: IM; Site: right gluteus; ea 00:15 Follow up: Response: Medication administered at discharge. jb4 01:02 Follow up: Response: No adverse reaction; Pain is decreased samy Outcome: 00:10 Discharge ordered by . tw4 00:37 Discharged to home ambulatory, with family. 00:37 Condition: stable 00:37 Discharge instructions given to patient, Instructed on discharge instructions, follow up and referral plans. medication usage, Demonstrated understanding of instructions, follow-up care, medications. 00:38 Patient left the ED. Signatures: Dispatcher [employer] EDMarilee Osorio, RN RN aj1 Jen Alexandra Felicia RN RN Gilberto Hoang RN RN jb4 Beryl Hogan mt, Elena RN RN Jozef Henriquez MD MD tw4
--- NOTE | 2019-01-14 00:12 | EDPHYS ---
Physician Documentation [facility] Name: Zenaida Goss Age: 58 yrs Sex: Female : 1960 Arrival Date: 01/13/2019 Time: 20:36 Bed 14 Private MD: ED Physician Jozef Youssef HPI: 01/14 06:13 This 58 yrs old Female presents to ER via Wheelchair with complaints of Chest tw4 Pain, Shortness Of Breath. 06:13 The patient or guardian reports chest pain that is located primarily in the anterior tw4 chest wall, left. Onset: 2 day(s) ago. The pain does not radiate. Associated signs and symptoms: The patient has no apparent associated signs or symptoms. Duration: The patient or guardian reports a single episode. Severity of pain: At its worst the pain was moderate in the emergency department the pain is unchanged. 06:13 The patient has experienced a previous episode, yesterday. tw4 Historical: - Allergies: 01/13 20:40 Morphine (Anaphylaxis); aj1 - Home Meds: 20:40 Lactulose Oral [Active]; Albuterol Nebulizer [Active]; xyphaxine [Active]; aj1 - PMHx: 20:40 Anemia; Cirrhosis; fatty liver; Pancreatitis; varices; aj1 - Immunization history:: Flu vaccine is not up to date. - Social history:: Smoking status: Patient/guardian denies using tobacco. - Ebola Screening: : Patient denies travel to an Ebola-affected area in the 21 days before illness onset. ROS: 01/14 06:13 Constitutional: Negative for fever, chills, and weight loss, Eyes: Negative for injury, tw4 pain, redness, and discharge, Abdomen/GI: Negative for abdominal pain, nausea, vomiting, diarrhea, and constipation, Back: Negative for injury and pain, MS/Extremity: Negative for injury and deformity, Skin: Negative for injury, rash, and discoloration, Neuro: Negative for headache, weakness, numbness, tingling, and seizure. Cardiovascular: Positive for chest pain, Negative for edema, orthopnea, paroxysmal nocturnal dyspnea. Exam: 06:13 Constitutional: This is a well developed, well nourished patient who is awake, alert, tw4 and in no acute distress. Head/Face: Normocephalic, atraumatic. Eyes: Pupils equal round and reactive to light, extra-ocular motions intact. Lids and lashes normal. Conjunctiva and sclera are non-icteric and not injected. Cornea within normal limits. Periorbital areas with no swelling, redness, or edema. Chest/axilla: Normal chest wall appearance and motion. Nontender with no deformity. No lesions are appreciated. Cardiovascular: Regular rate and rhythm with a normal S1 and S2. No gallops, murmurs, or rubs. Normal PMI, no JVD. No pulse deficits. Respiratory: Lungs have equal breath sounds bilaterally, clear to auscultation and percussion. No rales, rhonchi or wheezes noted. No increased work of breathing, no retractions or nasal flaring. Abdomen/GI: Soft, non-tender, with normal bowel sounds. No distension or tympany. No guarding or rebound. No evidence of tenderness throughout. Back: No spinal tenderness. No costovertebral tenderness. Full range of motion. MS/ Extremity: Pulses equal, no cyanosis. Neurovascular intact. Full, normal range of motion. Neuro: Awake and alert, GCS 15, oriented to person, place, time, and situation. Cranial nerves II-XII grossly intact. Motor strength 5/5 in all extremities. Sensory grossly intact. Cerebellar exam normal. Normal gait. Vital Signs: 01/13 20:40 BP 134 / 50; Pulse 85; Resp 18; Temp 99.0; Pulse Ox 97% on R/A; Weight 113.4 kg (R); aj1 Height 5 ft. 3 in. (160.02 cm) (R); 21:33 BP 140 / 68; Pulse 84; Resp 16; Pulse Ox 100% on R/A; mt 23:30 BP 115 / 51; Pulse 75; Resp 16; Pulse Ox 100% on R/A; jb4 20:40 Body Mass Index 44.29 (113.40 kg, 160.02 cm) aj1 MDM: 20:47 Patient medically screened. tw4 01/14 06:13 Differential diagnosis: acute pericarditis, anxiety, Cholelithiasis costochondritis, tw4 gastroesophageal reflux disease (GERD), herpes zoster, pulmonary embolus, thoracic aortic disection. Data reviewed: vital signs, nurses notes. Data interpreted: Pulse oximetry:. Counseling: I had a detailed discussion with the patient and/or guardian regarding: the historical points, exam findings, and any diagnostic results supporting the discharge/admit diagnosis, lab results, radiology results. 01/13 20:48 Order name: Basic Metabolic Panel; Complete Time: 21:41 tw4 01/13 21:41 Interpretation: Normal except: CL 110. tw4 01/13 20:48 Order name: CBC with Diff tw4 01/13 21:41 Interpretation: Normal except: WBC 2.8; RBC 3.64; HGB 10.2; HCT 31.1; PLT 60; RDW 16.4; tw4 NEUT A 1.6. 01/13 20:48 Order name: LFT's; Complete Time: 21:41 tw4 01/13 21:41 Interpretation: Normal except: AST 46; BILID 0.5; BILIT 1.2; ALK 153; ALB 3.3; A/G 0.9. tw4 01/13 20:48 Order name: Magnesium; Complete Time: 21:41 tw4 01/13 20:48 Order name: NT PRO-BNP; Complete Time: 21:41 tw4 01/13 20:48 Order name: PT-INR; Complete Time: 21:41 4 01/13 20:48 Order name: Troponin (emerg Dept Use Only); Complete Time: 21:41 tw4 01/13 20:48 Order name: XRAY Chest (1 view) tw4 01/13 21:16 Order name: CBC Smear Scan EDMD 01/13 21:41 Order name: CT Chest For PE Angio tw4 01/13 23:08 Order name: Troponin (emerg Dept Use Only); Complete Time: 00:15 tw4 01/14 00:15 Interpretation: Normal except: TROPED < 0.02. 01/13 20:48 Order name: EKG; Complete Time: 20:49 4 01/13 20:48 Order name: Cardiac monitoring; Complete Time: 21:08 4 01/13 20:48 Order name: EKG - Nurse/Tech; Complete Time: 20:50 4 01/13 20:48 Order name: IV Saline Lock; Complete Time: 21:08 4 01/13 20:48 Order name: Labs collected and sent; Complete Time: 21:08 4 01/13 20:48 Order name: O2 Per Protocol; Complete Time: 20:50 tw4 01/13 20:48 Order name: O2 Sat Monitoring; Complete Time: 20:50 tw4 EC:13 Rate is 89 beats/min. Rhythm is regular. QRS [place] is Normal. [place] interval is normal. QRS tw4 interval is normal. QT interval is normal. No Q waves. T waves are Flattened in leads III, aVF. No ST changes noted. Clinical impression: Abnormal EKG without significant change. Interpreted by me. Reviewed by me. Administered Medications: 01/13 21:57 Drug: TORadol 30 mg Route: IVP; Site: left antecubital; jb4 22:20 Follow up: Response: No adverse reaction; Pain is decreased jb4 21:58 Drug: Zofran 4 mg Route: IVP; Site: left antecubital; jb4 22:20 Follow up: Response: No adverse reaction; Nausea is decreased 4 01/14 00:15 Drug: TORadol 60 mg Route: IM; Site: right gluteus; ea 00:15 Follow up: Response: Medication administered at discharge. 4 01:02 Follow up: Response: No adverse reaction; Pain is decreased ea Disposition: 01/14/19 00:10 Discharged to Home. Impression: atypical chest pain. - Condition is Stable. - Discharge Instructions: Nonspecific Chest Pain, Nonspecific Chest Pain, [id number], Chest Pain Observation. - Medication Reconciliation Form, Thank You Letter, Antibiotic Education, Prescription Opioid Use form. - Follow up: Private Physician; When: Upon discharge from the Emergency Department; Reason: If symptoms return, Recheck today's complaints, Continuance of care. - Problem is new. - Symptoms have improved. Signatures: Dispatcher [employer] EDMD Marilee Jaeger RN RN aj1 Jenni Adams RN RN fc Bryson, James, RN RN jb4 Connie Mak RN RN ea Wadley, Terrence, MD MD tw4 Corrections: (The following items were deleted from the chart) 00:38 00:10 01/14/2019 00:10 Discharged to Home. Impression: atypical chest pain. Condition fc is Stable. Forms are Medication Reconciliation Form, Thank You Letter, Antibiotic Education, Prescription Opioid Use. Follow up: Private Physician; When: Upon discharge from the Emergency Department; Reason: If symptoms return, Recheck today's complaints, Continuance of care. Problem is new. Symptoms have improved. tw4 06:23 06:13 Constitutional: Negative for fever, chills, and weight loss, Eyes: Negative for tw4 injury, pain, redness, and discharge, ENT: Negative for injury, pain, and discharge, Cardiovascular: Negative for chest pain, palpitations, and edema, Respiratory: Negative for shortness of breath, cough, wheezing, and pleuritic chest pain, Abdomen/GI: Negative for abdominal pain, nausea, vomiting, diarrhea, and constipation, Back: Negative for injury and pain, MS/Extremity: Negative for injury and deformity, Skin: Negative for injury, rash, and discoloration, tw4
[2019-01-14] MEDS ORDERED: KETOROLAC 30 MG/ML INJ ONE (00:18)
[2019-01-14 01:53] VITALS: TEMP 99
[2019-01-14 01:55] VITALS: BP 140/68; O2SAT 100
--- NOTE | 2019-01-14 09:52 | RAD REPORT ---
EXAM DESCRIPTION: RAD - Chest Single View - 01/14/2019 1:07 am CLINICAL HISTORY: Pneumonia, bronchitis, chest pain COMPARISON: December 31 TECHNIQUE: AP portable chest image was obtained 2056 . FINDINGS: Lung volumes are low. No peripheral mass or consolidation. No significant degree of failur e, volume overload or failure. Heart and vasculature are normal. No measurable pleural effusion and n o pneumothorax. No acute bony abnormality seen. No acute aortic findings suspected. IMPRESSION: No acute cardiopulmonary process.
--- NOTE | 2019-01-15 09:53 | EKG ---
Test Date: 2019-01-13 Test Time: 20:46:52 [employer] Operator: MANUEL MEASUREMENT RESULTS: Intervals: Rate: 89 OR: 144 QRSD: 94 QT: 402 QTc: 489 Sandy: P: 43 OR: 144 QRS: 50 T: 33 INTERPRETIVE STATEMENTS: Normal sinus rhythm normal ECG Compared to ECG 09/30/2018 15:00:00 no significant change from previous ECG Electronically Signed On 01-15-19 09:52:59 CDT by Fabrizio Joe
--- NOTE | 2019-01-15 11:20 | RAD REPORT ---
EXAM DESCRIPTION: CT - Chest For Pe Angio - 01/14/2019 12:49 am CLINICAL HISTORY: Chest pain COMPARISON: None. TECHNIQUE: Due to technical issues at hospital this exam could not be dictated after completion. It is now available for dictation Dynamically enhanced axial 3 mm thick images of the chest were obtained during administration of <100 > mL Isovue 370 IV contrast. Coronal and oblique reconstruction images were generated and reviewed. E xa utilizes a protocol for optimal evaluation of pulmonary arterial tree. Maximum intensity projections 3D imaging was utilized All CT scans are performed using dose optimization technique as appropriate and may include automated exposure control or mA/KV adjustment according to patient size. FINDINGS: The opacification of the pulmonary arteries is suboptimal. Detection of pulmonary embolus is limited No gross central pulmonary embolus seen A pulmonary embolus is not seen. A thoracic aortic aneurysm is not noted. A pleural effusion is not seen. A pericardial effusion is not seen. A lung consolidation is not present. Cirrhotic liver IMPRESSION: No gross central pulmonary embolus. Preliminary report was given to Dr Youssef
== END 2019-01-14 00:38 | disposition home or self-care (01) ==
LOC: ER 20:32
DX: R07.89 Other chest pain (principal); K74.60 Unspecified cirrhosis of liver; D64.9 Anemia, unspecified; Z88.5 Allergy status to narcotic agent
CPT/HCPCS: 93005; 85025; 80048; 36415; 83735; 85610; 80076; 84484 ×2; 83880; 71275; 71045; 96375; 96372; 96374; 99285; Q9967; J2405

== ENCOUNTER 2019-04-07 18:50 | Emergency (ER) | payer OTHER ==
--- OUTSIDE RECORDS SUMMARY | 2019-04-07 18:53 | XMS REPORT ---
:1960 [facility] Address [address] [place] [address] Care Team Providers Name Role Phone AVI [...] ID: VIEW, NON DEPT exam:->SOBShould this be [id number] CLINICAL performed at the HISTORY: SOB TECHNIQUE: bedside?->Yes 1 view of the chest. COMPARISON: None IMPRESSION: There is pulmonary vascular congestion with prominent lung markings bilaterally. Subpulmonic pleural effusions cannot be excluded. The cardiomediastinal silhouette is magnified by technique. Signed: Franky Hoyt MDReport Verified Date/Time: 10/03/2018 07:50:47 Reading Location: [facility] Radiology Reading Room ESIUM 2018-10-03 07:37:00 Test Item Value Reference Range Comments MAGNESIUM (BEAKER) (test wqvv=096) 1.6 mg/dL 1.6-2.6 BASIC METABOLIC [id number] 07:37:00 Test Item Value Reference Range Comments SODIUM (BEAKER) (test 138 meq/L 136-145 ezxf=172) POTASSIUM (BEAKER) (test 4.0 meq/L 3.5-5.1 kvma=149) CHLORIDE (BEAKER) (test 107 meq/L 98-107 ksrm=791) CO2 (BEAKER) (test 25 meq/L 22-29 bmcv=065) BLOOD UREA NITROGEN 10 mg/dL 7-21 (BEAKER) (test xsuh=533) CREATININE (BEAKER) (test 0.65 mg/dL 0.57-1.25 nbhn=853) GLUCOSE RANDOM (BEAKER) 99 mg/dL 70-105 (test eegc=088) CALCIUM (BEAKER) (test 8.2 mg/dL 8.4-10.2 wfbt=186) EGFR (BEAKER) (test 94 mL/min/1.73 sq m ESTIMATED GFR IS NOT vzpy=8703) ACCURATE CREATININE CLEARANCE IN PREDICTING GLOMERULAR FILTRATION RATE. ESTIMATED GFR IS NOT APPLICABLE FOR DIALYSIS PATIENTS. Specimen slightly ictericHEPATIC FUNCTION [id number] 07:37:00 Test Item Value Reference Range Comments TOTAL PROTEIN (BEAKER) (test fpbu=097) 5.9 gm/dL 6.0-8.3 ALBUMIN (BEAKER) (test ppne=7407) 3.1 g/dL 3.5-5.0 BILIRUBIN TOTAL (BEAKER) (test ifmt=628) 2.0 mg/dL 0.2-1.2 BILIRUBIN DIRECT (BEAKER) (test owey=083) 1.0 mg/dL 0.1-0.5 ALKALINE PHOSPHATASE (BEAKER) (test xttx=344) 123 U/L 40-150 AST (SGOT) (BEAKER) (test nasl=868) 45 U/L 5-34 ALT (SGPT) (BEAKER) (test ehke=770) 35 U/L 6-55 Specimen slightly ictericPROTHROMBIN [id number] 06:25:00 Test Item Value Reference Range Comments PROTIME (BEAKER) (test wrtr=044) 15.2 seconds 11.9-14.2 INR (BEAKER) (test bgem=650) 1.3 <=5.9 Effective 09/06/2018: PT Reference Range ChangeNew: 11.9-14.2 Previous: 11.7- 14.7RECOMMENDED COUMADIN/WARFARIN INR THERAPY RANGESSTANDARD DOSE: 2.0-3.0 Includes: PROPHYLAXIS for venous thrombosis, systemic embolization; TREATMENT for venous thrombosis and/or pulmonary embolus.HIGH RISK: Target INR is2.5-3.5 for patients wiht mechanical heart valves.CBC W/PLT COUNT & AUTO [id number] 06:16:00 Test Item Value Reference Range Comments WHITE BLOOD CELL COUNT (BEAKER) (test cfey=984) 2.4 K/ L 3.5-10.5 RED BLOOD CELL COUNT (BEAKER) (test ejfy=666) 3.26 M/ L 3.93-5.22 HEMOGLOBIN (BEAKER) (test sksr=390) 9.6 GM/DL 11.2-15.7 HEMATOCRIT (BEAKER) (test loap=400) 30.8 % 34.1-44.9 MEAN CORPUSCULAR VOLUME (BEAKER) (test mxyj=692) 94.5 fL 79.4-94.8 MEAN CORPUSCULAR HEMOGLOBIN (BEAKER) (test 29.4 pg 25.6-32.2 btsz=080) MEAN CORPUSCULAR HEMOGLOBIN CONC (BEAKER) (test 31.2 GM/DL 32.2-35.5 vrxc=779) RED CELL DISTRIBUTION WIDTH (BEAKER) (test 15.2 % 11.7-14.4 rptb=360) PLATELET COUNT (BEAKER) (test oioi=864) 38 K/CU MM 150-450 MEAN PLATELET VOLUME (BEAKER) (test wytn=494) 10.3 fL 9.4-12.3 NUCLEATED RED BLOOD CELLS (BEAKER) (test 0 /100 WBC 0-0 pial=737) NEUTROPHILS RELATIVE PERCENT (BEAKER) (test 57 % mayu=715) LYMPHOCYTES RELATIVE PERCENT (BEAKER) (test 26 % hztd=807) MONOCYTES RELATIVE PERCENT (BEAKER) (test 11 % xuqr=658) EOSINOPHILS RELATIVE PERCENT (BEAKER) (test 6 % qenl=064) BASOPHILS RELATIVE PERCENT (BEAKER) (test 0 % eifw=141) NEUTROPHILS ABSOLUTE COUNT (BEAKER) (test 1.35 K/ L 1.56-6.13 wdcu=803) LYMPHOCYTES ABSOLUTE COUNT (BEAKER) (test 0.61 K/ L 1.18-3.74 pdol=175) MONOCYTES ABSOLUTE COUNT (BEAKER) (test bgwm=646) 0.26 K/ L 0.24-0.36 EOSINOPHILS ABSOLUTE COUNT (BEAKER) (test 0.15 K/ L 0.04-0.36 lwtg=494) BASOPHILS ABSOLUTE COUNT (BEAKER) (test ajhf=470) 0.01 K/ L 0.01-0.08 IMMATURE GRANULOCYTES-RELATIVE PERCENT (BEAKER) 0 % 0-1 (test uknz=6253) (CELLAVISION MANUAL DIFF)2018-10-02 09:41:00 Test Item Value Reference Range Comments NEUTROPHILS - REL (CELLAVISION)(BEAKER) (test 70 % kjde=9308) LYMPHOCYTES - REL (CELLAVISION)(BEAKER) (test 21 % aulh=2490) MONOCYTES - REL (CELLAVISION)(BEAKER) (test 9 % vqor=1900) NEUTROPHILS - ABS (CELLAVISION)(BEAKER) (test 1.40 K/ul 1.56-6.13 ehib=3144) LYMPHOCYTES - ABS (CELLAVISION)(BEAKER) (test 0.42 K/ul 1.18-3.74 vssw=6383) MONOCYTES - ABS (CELLAVISION)(BEAKER) (test 0.18 K/uL 0.24-0.36 srbn=8732) TOTAL COUNTED (BEAKER) (test ntff=4657) 100 RBC MORPHOLOGY (BEAKER) (test nbzv=374) Normal WBC MORPHOLOGY (BEAKER) (test jaqj=231) Normal PLT MORPHOLOGY (BEAKER) (test rade=368) Normal ARTIFACT (CELLAVISION)(BEAKER) (test nfjm=8688) Present PLATELET CONCENTRATION (CELLAVISION)(BEAKER) (test Decreased crwj=8587) Received comment: User comments: Slide comments:[id number] 05:58:00 Test Item Value Reference Range Comments MAGNESIUM (BEAKER) (test sdnx=378) 1.6 mg/dL 1.6-2.6 BASIC METABOLIC [id number] 05:58:00 Test Item Value Reference Range Comments SODIUM (BEAKER) (test 138 meq/L 136-145 pxnh=959) POTASSIUM (BEAKER) (test 4.0 meq/L 3.5-5.1 orcm=493) CHLORIDE (BEAKER) (test 107 meq/L 98-107 qzkd=851) CO2 (BEAKER) (test 26 meq/L 22-29 fkwa=738) BLOOD UREA NITROGEN 12 mg/dL 7-21 (BEAKER) (test bnpu=659) CREATININE (BEAKER) (test 0.64 mg/dL 0.57-1.25 txfm=484) GLUCOSE RANDOM (BEAKER) 107 mg/dL 70-105 (test wcgr=005) CALCIUM (BEAKER) (test 8.0 mg/dL 8.4-10.2 dqea=771) EGFR (BEAKER) (test 96 mL/min/1.73 sq m ESTIMATED GFR IS NOT pyym=3532) ACCURATE CREATININE CLEARANCE IN PREDICTING GLOMERULAR FILTRATION RATE. ESTIMATED GFR IS NOT APPLICABLE FOR DIALYSIS PATIENTS. Specimen slightly ictericHEPATIC FUNCTION [id number] 05:58:00 Test Item Value Reference Range Comments TOTAL PROTEIN (BEAKER) (test ztzt=976) 5.8 gm/dL 6.0-8.3 ALBUMIN (BEAKER) (test dzmi=8892) 3.0 g/dL 3.5-5.0 BILIRUBIN TOTAL (BEAKER) (test ozyq=857) 2.2 mg/dL 0.2-1.2 BILIRUBIN DIRECT (BEAKER) (test rmqs=088) 1.1 mg/dL 0.1-0.5 ALKALINE PHOSPHATASE (BEAKER) (test abrq=789) 125 U/L 40-150 AST (SGOT) (BEAKER) (test fkns=506) 49 U/L 5-34 ALT (SGPT) (BEAKER) (test wrig=763) 39 U/L 6-55 Specimen slightly ictericPROTHROMBIN [id number] 05:26:00 Test Item Value Reference Range Comments PROTIME (BEAKER) (test gslj=546) 15.3 seconds 11.9-14.2 INR (BEAKER) (test rzpd=549) 1.3 <=5.9 Effective 09/06/2018: PT Reference Range ChangeNew: 11.9-14.2 Previous: 11.7- 14.7RECOMMENDED COUMADIN/WARFARIN INR THERAPY RANGESSTANDARD DOSE: 2.0-3.0 Includes: PROPHYLAXIS for venous thrombosis, systemic embolization; TREATMENT for venous thrombosis and/or pulmonary embolus.HIGH RISK: Target INR is2.5-3.5 for patients wiht mechanical heart valves.CBC W/PLT COUNT & AUTO [id number] 05:20:00 Test Item Value Reference Range Comments WHITE BLOOD CELL COUNT (BEAKER) (test uobk=932) 2.0 K/ L 3.5-10.5 RED BLOOD CELL COUNT (BEAKER) (test ztrx=369) 3.20 M/ L 3.93-5.22 HEMOGLOBIN (BEAKER) (test kugi=672) 9.5 GM/DL 11.2-15.7 HEMATOCRIT (BEAKER) (test yfkj=346) 30.5 % 34.1-44.9 MEAN CORPUSCULAR VOLUME (BEAKER) (test fpbo=111) 95.3 fL 79.4-94.8 MEAN CORPUSCULAR HEMOGLOBIN (BEAKER) (test 29.7 pg 25.6-32.2 tshi=338) MEAN CORPUSCULAR HEMOGLOBIN CONC (BEAKER) (test 31.1 GM/DL 32.2-35.5 avdf=957) RED CELL DISTRIBUTION WIDTH (BEAKER) (test 15.2 % 11.7-14.4 fsvk=310) PLATELET COUNT (BEAKER) (test vlei=879) 39 K/CU MM 150-450 MEAN PLATELET VOLUME (BEAKER) (test kbso=893) 10.9 fL 9.4-12.3 NUCLEATED RED BLOOD CELLS (BEAKER) (test 0 /100 WBC 0-0 tddz=449) VITAMIN [id number] 06:57:00 Test Item Value Reference Range Comments VITAMIN B12 (BEAKER) (test rasz=142) 178 pg/mL 213-816 [id number] 06:57:00 Test Item Value Reference Range Comments FERRITIN (BEAKER) (test megn=935) 21 ng/mL 5-275 FOLATE, [id number] 06:57:00 Test Item Value Reference Range Comments FOLATE (BEAKER) (test egce=844) 11.3 ng/mL >=7.0 IRON, TIBC, % SAT. (WITHOUT FERRITIN)2018-10-01 05:59:00 Test Item Value Reference Range Comments IRON (BEAKER) (test wjue=970) 81.0 ug/dL 40.0-160.0 TOTAL IRON BINDING CAPACITY (BEAKER) (test 291 ug/dL 250-450 zihq=216) IRON % SATURATION (2) (BEAKER) (test maju=9079) 28 % 20-55 [id number] 05:59:00 Test Item Value Reference Range Comments MAGNESIUM (BEAKER) (test ryng=655) 1.7 mg/dL 1.6-2.6 BASIC METABOLIC [id number] 05:59:00 Test Item Value Reference Range Comments SODIUM (BEAKER) (test 141 meq/L 136-145 culk=191) POTASSIUM (BEAKER) (test 4.0 meq/L 3.5-5.1 jelh=352) CHLORIDE (BEAKER) (test 110 meq/L 98-107 chnt=536) CO2 (BEAKER) (test 26 meq/L 22-29 mrks=851) BLOOD UREA NITROGEN 11 mg/dL 7-21 (BEAKER) (test owxu=278) CREATININE (BEAKER) (test 0.62 mg/dL 0.57-1.25 jyug=704) GLUCOSE RANDOM (BEAKER) 97 mg/dL 70-105 (test ikmb=485) CALCIUM (BEAKER) (test 8.4 mg/dL 8.4-10.2 itjw=716) EGFR (BEAKER) (test 99 mL/min/1.73 sq m ESTIMATED GFR IS NOT qvkj=9278) ACCURATE CREATININE CLEARANCE IN PREDICTING GLOMERULAR FILTRATION RATE. ESTIMATED GFR IS NOT APPLICABLE FOR DIALYSIS PATIENTS. Specimen slightly ictericLIPID [id number] 05:59:00 Test Item Value Reference Range Comments TRIGLYCERIDES (BEAKER) (test omxj=093) 64 mg/dL CHOLESTEROL (BEAKER) (test ncnc=220) 142 mg/dL HDL CHOLESTEROL (BEAKER) (test ggys=277) 44 mg/dL LDL CHOLESTEROL CALCULATED (BEAKER) (test 85 mg/dL aayl=304) Triglyceride Reference Range: Low Risk <150 Borderline 150- 199 High Risk 200-499 Very High Risk >=500Cholesterol Reference Range: Low Risk <200 Borderline 200-239 High Risk > 240HDL Cholesterol Reference Range: Low Risk >=60 High Risk <40LDL Cholesterol Reference Range: Optimal <100 Near Optimal 100-129 Borderline 130-159 High 160-189 Very High >=190 Specimen slightly ictericHEPATIC FUNCTION [id number] 05:59: 00 Test Item Value Reference Range Comments TOTAL PROTEIN (BEAKER) (test vkkn=111) 6.1 gm/dL 6.0-8.3 ALBUMIN (BEAKER) (test gqek=6120) 3.2 g/dL 3.5-5.0 BILIRUBIN TOTAL (BEAKER) (test beib=540) 2.5 mg/dL 0.2-1.2 BILIRUBIN DIRECT (BEAKER) (test ctru=067) 1.2 mg/dL 0.1-0.5 ALKALINE PHOSPHATASE (BEAKER) (test ivmg=908) 130 U/L 40-150 AST (SGOT) (BEAKER) (test vveq=766) 47 U/L 5-34 ALT (SGPT) (BEAKER) (test aeob=184) 41 U/L 6-55 Specimen slightly [id number] 05:59:00 Test Item Value Reference Range Comments LIPASE (BEAKER) (test evjm=441) 35 U/L 8-78 Specimen slightly ictericPROTHROMBIN [id number] 05:58:00 Test Item Value Reference Range Comments PROTIME (BEAKER) (test dppg=690) 15.9 seconds 11.9-14.2 INR (BEAKER) (test jaaz=805) 1.3 <=5.9 Effective 09/06/2018: PT Reference Range ChangeNew: 11.9-14.2 Previous: 11.7- 14.7RECOMMENDED COUMADIN/WARFARIN INR THERAPY RANGESSTANDARD DOSE: 2.0-3.0 Includes: PROPHYLAXIS for venous thrombosis, systemic embolization; TREATMENT for venous thrombosis and/or pulmonary embolus.HIGH RISK: Target INR is2.5-3.5 for patients wiht mechanical heart valves.CBC W/PLT COUNT & AUTO [id number] 05:37:00 Test Item Value Reference Range Comments WHITE BLOOD CELL COUNT (BEAKER) (test cjlz=880) 2.4 K/ L 3.5-10.5 RED BLOOD CELL COUNT (BEAKER) (test qcwm=525) 3.39 M/ L 3.93-5.22 HEMOGLOBIN (BEAKER) (test ehcc=528) 9.9 GM/DL 11.2-15.7 HEMATOCRIT (BEAKER) (test wfot=914) 31.8 % 34.1-44.9 MEAN CORPUSCULAR VOLUME (BEAKER) (test wbxl=745) 93.8 fL 79.4-94.8 MEAN CORPUSCULAR HEMOGLOBIN (BEAKER) (test 29.2 pg 25.6-32.2 jpmv=930) MEAN CORPUSCULAR HEMOGLOBIN CONC (BEAKER) (test 31.1 GM/DL 32.2-35.5 xuqw=989) RED CELL DISTRIBUTION WIDTH (BEAKER) (test 15.4 % 11.7-14.4 cgon=445) PLATELET COUNT (BEAKER) (test wqkz=607) 38 K/CU MM 150-450 MEAN PLATELET VOLUME (BEAKER) (test kjie=235) 10.2 fL 9.4-12.3 NUCLEATED RED BLOOD CELLS (BEAKER) (test 0 /100 WBC 0-0 vmlw=200) NEUTROPHILS RELATIVE PERCENT (BEAKER) (test 57 % mbib=822) LYMPHOCYTES RELATIVE PERCENT (BEAKER) (test 27 % jypt=214) MONOCYTES RELATIVE PERCENT (BEAKER) (test 10 % cwsh=081) EOSINOPHILS RELATIVE PERCENT (BEAKER) (test 5 % qckz=836) BASOPHILS RELATIVE PERCENT (BEAKER) (test 1 % ufxb=026) NEUTROPHILS ABSOLUTE COUNT (BEAKER) (test 1.38 K/ L 1.56-6.13 xyrc=100) LYMPHOCYTES ABSOLUTE COUNT (BEAKER) (test 0.65 K/ L 1.18-3.74 mxvs=558) MONOCYTES ABSOLUTE COUNT (BEAKER) (test vqks=810) 0.24 K/ L 0.24-0.36 EOSINOPHILS ABSOLUTE COUNT (BEAKER) (test 0.12 K/ L 0.04-0.36 likb=567) BASOPHILS ABSOLUTE COUNT (BEAKER) (test chbn=187) 0.02 K/ L 0.01-0.08 IMMATURE GRANULOCYTES-RELATIVE PERCENT (BEAKER) 0 % 0-1 (test itsq=9946) POCT-HEMOGLOBIN [id number] 06:12:00 Test Item Value Reference Range Comments POC-HEMOGLOBIN METER (BEAKER) 8.6 g/dL 12.0-15.[address] [facility] [address] [facility] (test woft=5052) [facility] [id number]
[2019-04-07] MEDS ORDERED: AMOX/K CLAV 875 MG TAB ONE (19:48)
--- NOTE | 2019-04-07 19:48 | ER ---
Nurse's Notes [facility] Name: Zenaida Goss Age: 58 yrs Sex: Female : 1960 Arrival Date: 04/07/2019 Time: 18:51 Bed 27 Private MD: Diagnosis: Acute frontal sinusitis;Acute maxillary sinusitis Presentation: 04/07 19:12 Presenting complaint: Patient states: frontal and maxillary sinus pressure radiates to sr5 back of head x 1 week. Treated for Flu on Tuesday with Tamiflu by PCP, reports continued s/s. Transition of care: patient was not received from another setting of care. Onset of symptoms was March 31, 2019. Risk Assessment: Do you want to hurt yourself or someone else? Patient reports no desire to harm self or others. Initial Sepsis Screen: Does the patient meet any 2 criteria? No. Patient's initial sepsis screen is negative. Care prior to arrival: None. 19:12 Method Of Arrival: Ambulatory sr5 19:12 Acuity: TANK 4 sr5 19:30 Initial Sepsis Screen: Does the patient have a suspected source of infection? No. jv1 Patient's initial sepsis screen is negative. Triage Assessment: 19:14 General: Appears uncomfortable, Behavior is calm, cooperative. Pain: Complains of pain sr5 in forehead, right cheek and left cheek Pain currently is 8 out of 10 on a pain scale. Neuro: Level of Consciousness is awake, alert, obeys commands, Oriented to person, place, time, situation, Gait is steady, Speech is normal, Reports headache. Cardiovascular: Patient's skin is warm and dry. Respiratory: Respiratory effort is even, unlabored, Respiratory pattern is regular, symmetrical. 19:50 Headache History: The patient has had previous headaches and this one is similar to jv1 previous episodes. Pain: Complains of pain in head Pain began 2-3 days ago. Also complains of runny nose and cough. Historical: - Allergies: 19:14 Morphine (Anaphylaxis); sr5 - Immunization history:: Adult Immunizations up to date. - Social history:: Smoking status: unknown. - Ebola Screening: : No symptoms or risks identified at this time. Screenin:45 Abuse screen: Denies threats or abuse. Nutritional screening: No deficits noted. jv1 Tuberculosis screening: No symptoms or risk factors identified. Fall Risk None identified. Assessment: 19:37 General: Appears uncomfortable, obese, well groomed, Behavior is calm, cooperative. jv1 Pain: Complains of pain in head Pain does not radiate. Pain currently is 10 out of 10 on a pain scale. Quality of pain is described as aching. Neuro: Level of Consciousness is awake, alert, obeys commands, Oriented to person, place, time, situation. Cardiovascular: Denies chest pain. Respiratory: Reports cough that is non-productive, Airway is patent Breath sounds are clear bilaterally. GI: No signs and/or symptoms were reported involving the gastrointestinal system. Abdomen is round Bowel sounds present X 4 quads. : No signs and/or symptoms were reported regarding the genitourinary system. EENT: Nares with drainage noted. Derm: No signs and/or symptoms reported regarding the dermatologic system. Skin is intact, is healthy with good turgor. Musculoskeletal: No signs and/or symptoms reported regarding the musculoskeletal system. 20:00 Reassessment: Patient appears in no apparent distress at this time. No changes from jv1 previously documented assessment. Patient is alert, oriented x 3, equal unlabored respirations, skin warm/dry/pink. Vital Signs: 19:14 BP 126 / 50; Pulse 79; Resp 20; Temp 98.0; Pulse Ox 100% ; Weight 113.4 kg; Height 5 sr5 ft. 3 in. (160.02 cm); Pain 8/10; 19:36 BP 111 / 47; Pulse 72; Resp 18; Temp 98.5; Pulse Ox 98% ; Pain 10/10; jv1 20:00 BP 110 / 55; Pulse 78; Resp 18; Temp 98; Pulse Ox 99% on R/A; jv1 19:14 Body Mass Index 44.29 (113.40 kg, 160.02 cm) sr5 ED Course: 18:51 Patient arrived in ED. as 19:13 Triage completed. sr5 19:14 Arm band placed on. sr5 19:19 Marco A Messina FNP-C [facility]. la1 19:19 Marcio Stone MD is Attending Physician. la1 19:30 Patient has correct armband on for positive identification. Fall risk band placed. jv1 Placed in gown. Bed in low position. Call light in reach. Adult w/ patient. 20:00 No provider procedures requiring assistance completed. Patient did not have IV access jv1 during this emergency room visit. Administered Medications: 20:00 Drug: Augmentin 875 mg Route: PO; jv1 20:05 Follow up: Response: No adverse reaction jv1 Outcome: 19:48 Discharge ordered by MD. spence 20:00 Discharged to home ambulatory, with family. jv1 20:00 Condition: improved 20:00 Discharge instructions given to patient, family, Instructed on discharge instructions, follow up and referral plans. medication usage, Demonstrated understanding of instructions, follow-up care, medications, Prescriptions given X 1. 21:05 Patient left the ED. jv1 Signatures: Lila Abbasi Lee, CUTTER APPRENTICE HAND-C CUTTER APPRENTICE HAND-Cla1 Faisal Galindo RN RN sr5 Love Ochoa RN RN jv1
--- NOTE | 2019-04-07 19:49 | EDPHYS ---
Physician Documentation [facility] Name: Zenaida Goss Age: 58 yrs Sex: Female : 1960 Arrival Date: 04/07/2019 Time: 18:51 Bed 27 Private MD: ED Physician Marcio Stone HPI: 04/07 19:44 This 58 yrs old Female presents to ER via Ambulatory with complaints of la1 Headache. 19:44 The patient complains of pain to the forehead and right cheek. The patient describes la1 the headache as constant, a pressure. Onset: The symptoms/episode began/occurred 1 week(s) ago. Associated signs and symptoms: Pertinent positives: sinus congestion, sinus tenderness, Pertinent negatives: altered mental status, dizziness, fever, malaise, nausea, neck stiffness, paresthesias, Photophobia rash. Severity of symptoms: At its worst the pain was moderate, in the emergency department the pain has improved. Headache History:. The symptoms are alleviated by nothing. the symptoms are aggravated by nothing. Pt recently treated for the flu, has been having facial pain and pressure worse on the right than the left. Historical: - Allergies: 19:14 Morphine (Anaphylaxis); sr5 - Immunization history:: Adult Immunizations up to date. - Social history:: Smoking status: unknown. - Ebola Screening: : No symptoms or risks identified at this time. ROS: 19:45 Constitutional: Negative for fever, chills, and weight loss, Eyes: Negative for injury, la1 pain, redness, and discharge, ENT: Negative for injury, pain, and discharge, Neck: Negative for injury, pain, and swelling, Cardiovascular: Negative for chest pain, palpitations, and edema, Respiratory: Negative for shortness of breath, cough, wheezing, and pleuritic chest pain, Abdomen/GI: Negative for abdominal pain, nausea, vomiting, diarrhea, and constipation, Back: Negative for injury and pain, : Negative for injury, bleeding, discharge, and swelling, MS/Extremity: Negative for injury and deformity, Skin: Negative for injury, rash, and discoloration, Neuro: Negative for headache, weakness, numbness, tingling, and seizure. Exam: 19:45 Constitutional: This is a well developed, well nourished patient who is awake, alert, la1 and in no acute distress. Head/Face: Normocephalic, atraumatic. Eyes: Pupils equal round and reactive to light, extra-ocular motions intact. Periorbital areas with no swelling, redness, or edema. ENT: Nares patent. No nasal discharge, no septal abnormalities noted. Tympanic membranes are normal and external auditory canals are clear. Oropharynx with no redness, swelling, or masses, exudates, or evidence of obstruction, uvula midline. Mucous membranes moist. Maxillary and frontal right sided sinus tenderness to percussion Neck: Trachea midline, no thyromegaly or masses palpated, and no cervical lymphadenopathy. Supple, full range of motion without nuchal rigidity, or vertebral point tenderness. No Meningismus. Chest/axilla: Normal chest wall appearance and motion. Nontender with no deformity. No lesions are appreciated. Cardiovascular: Regular rate and rhythm with a normal S1 and S2. No gallops, murmurs, or rubs. Normal PMI, no JVD. No pulse deficits. Respiratory: Lungs have equal breath sounds bilaterally, clear to auscultation. No rales, rhonchi or wheezes noted. No increased work of breathing, no retractions or nasal flaring. Abdomen/GI: Soft, non-tender, with normal bowel sounds. No distension or tympany. No guarding or rebound. No evidence of tenderness throughout. MS/ Extremity: Pulses equal, no cyanosis. Neurovascular intact. Full, normal range of motion. Neuro: Awake and alert, GCS 15, oriented to person, place, time, and situation. Normal gait. Vital Signs: 19:14 BP 126 / 50; Pulse 79; Resp 20; Temp 98.0; Pulse Ox 100% ; Weight 113.4 kg; Height 5 sr5 ft. 3 in. (160.02 cm); Pain 8/10; 19:36 BP 111 / 47; Pulse 72; Resp 18; Temp 98.5; Pulse Ox 98% ; Pain 10/10; jv1 20:00 BP 110 / 55; Pulse 78; Resp 18; Temp 98; Pulse Ox 99% on R/A; jv1 19:14 Body Mass Index 44.29 (113.40 kg, 160.02 cm) sr5 MDM: 19:19 Patient medically screened. la1 19:46 Data reviewed: vital signs, nurses notes, I have discussed the patient's la1 presentation/case with the attending Emergency Department Physician; and as a result, I will discharge patient. Data interpreted: Pulse oximetry: on room air is 98 %. Interpretation: normal. Counseling: I had a detailed discussion with the patient and/or guardian regarding: the historical points, exam findings, and any diagnostic results supporting the discharge/admit diagnosis, the need for outpatient follow up, a family practitioner, to return to the emergency department if symptoms worsen or persist or if there are any questions or concerns that arise at home. Special discussion: Based on the patient's history, exam, and Dx evaluation, there is no indication for emergent intervention or inpatient Tx. It is understood by the patient/guardian that if the Sx's persist or worsen they need to return immediately for re-evaluation. ED course: pt with tenderness to right frontal and maxillary sinus, no fevers, pt tolerating PO, appears non-toxic. Administered Medications: 20:00 Drug: Augmentin 875 mg Route: PO; jv1 20:05 Follow up: Response: No adverse reaction jv1 Disposition: 22:04 Co-signature as Attending Physician, Marcio Stone MD. rn Disposition: 04/07/19 19:48 Discharged to Home. Impression: Acute frontal sinusitis, Acute maxillary sinusitis. - Condition is Stable. - Discharge Instructions: Sinusitis, Adult. - Prescriptions for Augmentin 875- 125 mg Oral Tablet - take 1 tablet by ORAL route every 12 hours for 7 days; 14 tablet. - Medication Reconciliation Form, Thank You Letter, Antibiotic Education form. - Follow up: Private Physician; When: 2 - 3 days; Reason: Recheck today's complaints, Re-evaluation by your physician. Follow up: Emergency Department; When: As needed; Reason: Worsening of condition. Signatures: Marcio Stone MD MD rn Attema, Lee, STUDENT ADMISSIONS CLERK-C STUDENT ADMISSIONS CLERK-Cla1 Faisal Galindo RN RN sr5 Jovanny Cantor RN RN mg2 Love Ochoa RN RN jv1 Corrections: (The following items were deleted from the chart) 21:05 19:48 04/07/2019 19:48 Discharged to Home. Impression: Acute frontal sinusitis; Acute jv1 maxillary sinusitis. Condition is Stable. Forms are Medication Reconciliation Form, Thank You Letter, Antibiotic Education, Prescription Opioid Use. Follow up: Private Physician; When: 2 - 3 days; Reason: Recheck today's complaints, Re-evaluation by your physician. Follow up: Emergency Department; When: As needed; Reason: Worsening of condition. la1
[2019-04-07 21:18] VITALS: BP 110/55; TEMP 98; O2SAT 99
== END 2019-04-07 21:05 | disposition home or self-care (01) ==
LOC: ER 18:50
DX: J01.10 Acute frontal sinusitis, unspecified (principal); J01.00 Acute maxillary sinusitis, unspecified; Z88.5 Allergy status to narcotic agent
CPT/HCPCS: 99283

== ENCOUNTER 2019-04-13 05:55 | Emergency (ER) | payer OTHER ==
--- OUTSIDE RECORDS SUMMARY | 2019-04-13 05:58 | XMS REPORT ---
:1960 [facility] Address [address] [place] [address] Care Team Providers Name Role Phone AVI [...] ID: VIEW, NON DEPT exam:->SOBShould this be [phone] CLINICAL performed at the HISTORY: SOB TECHNIQUE: bedside?->Yes 1 view of the chest. COMPARISON: None IMPRESSION: There is pulmonary vascular congestion with prominent lung markings bilaterally. Subpulmonic pleural effusions cannot be excluded. The cardiomediastinal silhouette is magnified by technique. Signed: Franky Hoyt MDReport Verified Date/Time: 10/03/2018 07:50:47 Reading Location: [facility] Radiology Reading Room ESIUM 2018-10-03 07:37:00 Test Item Value Reference Range Comments MAGNESIUM (BEAKER) (test xexa=198) 1.6 mg/dL 1.6-2.6 BASIC METABOLIC [id number] 07:37:00 Test Item Value Reference Range Comments SODIUM (BEAKER) (test 138 meq/L 136-145 etdq=210) POTASSIUM (BEAKER) (test 4.0 meq/L 3.5-5.1 bdbq=315) CHLORIDE (BEAKER) (test 107 meq/L 98-107 zcbk=392) CO2 (BEAKER) (test 25 meq/L 22-29 pjju=168) BLOOD UREA NITROGEN 10 mg/dL 7-21 (BEAKER) (test nfjj=858) CREATININE (BEAKER) (test 0.65 mg/dL 0.57-1.25 gddv=775) GLUCOSE RANDOM (BEAKER) 99 mg/dL 70-105 (test kktl=732) CALCIUM (BEAKER) (test 8.2 mg/dL 8.4-10.2 xmsh=823) EGFR (BEAKER) (test 94 mL/min/1.73 sq m ESTIMATED GFR IS NOT kzqq=0294) ACCURATE CREATININE CLEARANCE IN PREDICTING GLOMERULAR FILTRATION RATE. ESTIMATED GFR IS NOT APPLICABLE FOR DIALYSIS PATIENTS. Specimen slightly ictericHEPATIC FUNCTION [id number] 07:37:00 Test Item Value Reference Range Comments TOTAL PROTEIN (BEAKER) (test hvat=919) 5.9 gm/dL 6.0-8.3 ALBUMIN (BEAKER) (test jfmb=4088) 3.1 g/dL 3.5-5.0 BILIRUBIN TOTAL (BEAKER) (test ebsp=356) 2.0 mg/dL 0.2-1.2 BILIRUBIN DIRECT (BEAKER) (test dqzh=010) 1.0 mg/dL 0.1-0.5 ALKALINE PHOSPHATASE (BEAKER) (test lzcc=060) 123 U/L 40-150 AST (SGOT) (BEAKER) (test iiic=604) 45 U/L 5-34 ALT (SGPT) (BEAKER) (test gmag=696) 35 U/L 6-55 Specimen slightly ictericPROTHROMBIN [id number] 06:25:00 Test Item Value Reference Range Comments PROTIME (BEAKER) (test tebb=268) 15.2 seconds 11.9-14.2 INR (BEAKER) (test woij=470) 1.3 <=5.9 Effective 09/06/2018: PT Reference Range ChangeNew: 11.9-14.2 Previous: 11.7- 14.7RECOMMENDED COUMADIN/WARFARIN INR THERAPY RANGESSTANDARD DOSE: 2.0-3.0 Includes: PROPHYLAXIS for venous thrombosis, systemic embolization; TREATMENT for venous thrombosis and/or pulmonary embolus.HIGH RISK: Target INR is2.5-3.5 for patients wiht mechanical heart valves.CBC W/PLT COUNT & AUTO [id number] 06:16:00 Test Item Value Reference Range Comments WHITE BLOOD CELL COUNT (BEAKER) (test cyti=240) 2.4 K/ L 3.5-10.5 RED BLOOD CELL COUNT (BEAKER) (test wojh=466) 3.26 M/ L 3.93-5.22 HEMOGLOBIN (BEAKER) (test qskm=458) 9.6 GM/DL 11.2-15.7 HEMATOCRIT (BEAKER) (test jqxu=245) 30.8 % 34.1-44.9 MEAN CORPUSCULAR VOLUME (BEAKER) (test yfpv=051) 94.5 fL 79.4-94.8 MEAN CORPUSCULAR HEMOGLOBIN (BEAKER) (test 29.4 pg 25.6-32.2 hshv=007) MEAN CORPUSCULAR HEMOGLOBIN CONC (BEAKER) (test 31.2 GM/DL 32.2-35.5 cqcm=806) RED CELL DISTRIBUTION WIDTH (BEAKER) (test 15.2 % 11.7-14.4 yrij=568) PLATELET COUNT (BEAKER) (test juqy=184) 38 K/CU MM 150-450 MEAN PLATELET VOLUME (BEAKER) (test vewc=680) 10.3 fL 9.4-12.3 NUCLEATED RED BLOOD CELLS (BEAKER) (test 0 /100 WBC 0-0 nwhl=287) NEUTROPHILS RELATIVE PERCENT (BEAKER) (test 57 % nyqc=309) LYMPHOCYTES RELATIVE PERCENT (BEAKER) (test 26 % vokf=773) MONOCYTES RELATIVE PERCENT (BEAKER) (test 11 % ivcb=582) EOSINOPHILS RELATIVE PERCENT (BEAKER) (test 6 % xruk=171) BASOPHILS RELATIVE PERCENT (BEAKER) (test 0 % vfyq=039) NEUTROPHILS ABSOLUTE COUNT (BEAKER) (test 1.35 K/ L 1.56-6.13 dbaz=412) LYMPHOCYTES ABSOLUTE COUNT (BEAKER) (test 0.61 K/ L 1.18-3.74 rged=160) MONOCYTES ABSOLUTE COUNT (BEAKER) (test azle=794) 0.26 K/ L 0.24-0.36 EOSINOPHILS ABSOLUTE COUNT (BEAKER) (test 0.15 K/ L 0.04-0.36 cccz=799) BASOPHILS ABSOLUTE COUNT (BEAKER) (test jrct=588) 0.01 K/ L 0.01-0.08 IMMATURE GRANULOCYTES-RELATIVE PERCENT (BEAKER) 0 % 0-1 (test nllq=7185) (CELLAVISION MANUAL DIFF)2018-10-02 09:41:00 Test Item Value Reference Range Comments NEUTROPHILS - REL (CELLAVISION)(BEAKER) (test 70 % eakv=0487) LYMPHOCYTES - REL (CELLAVISION)(BEAKER) (test 21 % yusu=4750) MONOCYTES - REL (CELLAVISION)(BEAKER) (test 9 % ujui=6306) NEUTROPHILS - ABS (CELLAVISION)(BEAKER) (test 1.40 K/ul 1.56-6.13 znik=9474) LYMPHOCYTES - ABS (CELLAVISION)(BEAKER) (test 0.42 K/ul 1.18-3.74 lpbl=3722) MONOCYTES - ABS (CELLAVISION)(BEAKER) (test 0.18 K/uL 0.24-0.36 llum=2957) TOTAL COUNTED (BEAKER) (test pcuw=4486) 100 RBC MORPHOLOGY (BEAKER) (test fwbf=181) Normal WBC MORPHOLOGY (BEAKER) (test vzyd=906) Normal PLT MORPHOLOGY (BEAKER) (test hpzz=486) Normal ARTIFACT (CELLAVISION)(BEAKER) (test dohx=8581) Present PLATELET CONCENTRATION (CELLAVISION)(BEAKER) (test Decreased yqkp=0373) Received comment: User comments: Slide comments:[id number] 05:58:00 Test Item Value Reference Range Comments MAGNESIUM (BEAKER) (test mrvl=575) 1.6 mg/dL 1.6-2.6 BASIC METABOLIC [id number] 05:58:00 Test Item Value Reference Range Comments SODIUM (BEAKER) (test 138 meq/L 136-145 ptvm=788) POTASSIUM (BEAKER) (test 4.0 meq/L 3.5-5.1 wxxk=959) CHLORIDE (BEAKER) (test 107 meq/L 98-107 jyzy=093) CO2 (BEAKER) (test 26 meq/L 22-29 apzf=588) BLOOD UREA NITROGEN 12 mg/dL 7-21 (BEAKER) (test lgbk=449) CREATININE (BEAKER) (test 0.64 mg/dL 0.57-1.25 ghpb=998) GLUCOSE RANDOM (BEAKER) 107 mg/dL 70-105 (test vobv=821) CALCIUM (BEAKER) (test 8.0 mg/dL 8.4-10.2 eqoa=359) EGFR (BEAKER) (test 96 mL/min/1.73 sq m ESTIMATED GFR IS NOT lotk=4732) ACCURATE CREATININE CLEARANCE IN PREDICTING GLOMERULAR FILTRATION RATE. ESTIMATED GFR IS NOT APPLICABLE FOR DIALYSIS PATIENTS. Specimen slightly ictericHEPATIC FUNCTION [id number] 05:58:00 Test Item Value Reference Range Comments TOTAL PROTEIN (BEAKER) (test kjva=925) 5.8 gm/dL 6.0-8.3 ALBUMIN (BEAKER) (test jsjc=1595) 3.0 g/dL 3.5-5.0 BILIRUBIN TOTAL (BEAKER) (test amvk=135) 2.2 mg/dL 0.2-1.2 BILIRUBIN DIRECT (BEAKER) (test ncao=084) 1.1 mg/dL 0.1-0.5 ALKALINE PHOSPHATASE (BEAKER) (test xlax=984) 125 U/L 40-150 AST (SGOT) (BEAKER) (test dffo=951) 49 U/L 5-34 ALT (SGPT) (BEAKER) (test gzni=214) 39 U/L 6-55 Specimen slightly ictericPROTHROMBIN [id number] 05:26:00 Test Item Value Reference Range Comments PROTIME (BEAKER) (test eolf=067) 15.3 seconds 11.9-14.2 INR (BEAKER) (test xkrm=248) 1.3 <=5.9 Effective 09/06/2018: PT Reference Range ChangeNew: 11.9-14.2 Previous: 11.7- 14.7RECOMMENDED COUMADIN/WARFARIN INR THERAPY RANGESSTANDARD DOSE: 2.0-3.0 Includes: PROPHYLAXIS for venous thrombosis, systemic embolization; TREATMENT for venous thrombosis and/or pulmonary embolus.HIGH RISK: Target INR is2.5-3.5 for patients wiht mechanical heart valves.CBC W/PLT COUNT & AUTO [id number] 05:20:00 Test Item Value Reference Range Comments WHITE BLOOD CELL COUNT (BEAKER) (test owsj=263) 2.0 K/ L 3.5-10.5 RED BLOOD CELL COUNT (BEAKER) (test xupe=214) 3.20 M/ L 3.93-5.22 HEMOGLOBIN (BEAKER) (test pgdq=396) 9.5 GM/DL 11.2-15.7 HEMATOCRIT (BEAKER) (test xjfu=860) 30.5 % 34.1-44.9 MEAN CORPUSCULAR VOLUME (BEAKER) (test qiml=726) 95.3 fL 79.4-94.8 MEAN CORPUSCULAR HEMOGLOBIN (BEAKER) (test 29.7 pg 25.6-32.2 gqcw=588) MEAN CORPUSCULAR HEMOGLOBIN CONC (BEAKER) (test 31.1 GM/DL 32.2-35.5 hynx=829) RED CELL DISTRIBUTION WIDTH (BEAKER) (test 15.2 % 11.7-14.4 emij=872) PLATELET COUNT (BEAKER) (test tyle=784) 39 K/CU MM 150-450 MEAN PLATELET VOLUME (BEAKER) (test kbqb=623) 10.9 fL 9.4-12.3 NUCLEATED RED BLOOD CELLS (BEAKER) (test 0 /100 WBC 0-0 xyim=627) VITAMIN [id number] 06:57:00 Test Item Value Reference Range Comments VITAMIN B12 (BEAKER) (test actc=318) 178 pg/mL 213-816 [id number] 06:57:00 Test Item Value Reference Range Comments FERRITIN (BEAKER) (test ctce=402) 21 ng/mL 5-275 FOLATE, [id number] 06:57:00 Test Item Value Reference Range Comments FOLATE (BEAKER) (test qjxs=434) 11.3 ng/mL >=7.0 IRON, TIBC, % SAT. (WITHOUT FERRITIN)2018-10-01 05:59:00 Test Item Value Reference Range Comments IRON (BEAKER) (test roeu=003) 81.0 ug/dL 40.0-160.0 TOTAL IRON BINDING CAPACITY (BEAKER) (test 291 ug/dL 250-450 utrg=481) IRON % SATURATION (2) (BEAKER) (test dtto=8112) 28 % 20-55 [id number] 05:59:00 Test Item Value Reference Range Comments MAGNESIUM (BEAKER) (test jnkq=272) 1.7 mg/dL 1.6-2.6 BASIC METABOLIC [id number] 05:59:00 Test Item Value Reference Range Comments SODIUM (BEAKER) (test 141 meq/L 136-145 eysm=066) POTASSIUM (BEAKER) (test 4.0 meq/L 3.5-5.1 jbvu=897) CHLORIDE (BEAKER) (test 110 meq/L 98-107 eeam=790) CO2 (BEAKER) (test 26 meq/L 22-29 opps=661) BLOOD UREA NITROGEN 11 mg/dL 7-21 (BEAKER) (test eevp=332) CREATININE (BEAKER) (test 0.62 mg/dL 0.57-1.25 gyhm=471) GLUCOSE RANDOM (BEAKER) 97 mg/dL 70-105 (test lixb=605) CALCIUM (BEAKER) (test 8.4 mg/dL 8.4-10.2 itor=738) EGFR (BEAKER) (test 99 mL/min/1.73 sq m ESTIMATED GFR IS NOT rakk=4625) ACCURATE CREATININE CLEARANCE IN PREDICTING GLOMERULAR FILTRATION RATE. ESTIMATED GFR IS NOT APPLICABLE FOR DIALYSIS PATIENTS. Specimen slightly ictericLIPID [id number] 05:59:00 Test Item Value Reference Range Comments TRIGLYCERIDES (BEAKER) (test bblo=387) 64 mg/dL CHOLESTEROL (BEAKER) (test wcmv=624) 142 mg/dL HDL CHOLESTEROL (BEAKER) (test mdot=935) 44 mg/dL LDL CHOLESTEROL CALCULATED (BEAKER) (test 85 mg/dL slpc=970) Triglyceride Reference Range: Low Risk <150 Borderline 150- 199 High Risk 200-499 Very High Risk >=500Cholesterol Reference Range: Low Risk <200 Borderline 200-239 High Risk > 240HDL Cholesterol Reference Range: Low Risk >=60 High Risk <40LDL Cholesterol Reference Range: Optimal <100 Near Optimal 100-129 Borderline 130-159 High 160-189 Very High >=190 Specimen slightly ictericHEPATIC FUNCTION [id number] 05:59: 00 Test Item Value Reference Range Comments TOTAL PROTEIN (BEAKER) (test zoxw=839) 6.1 gm/dL 6.0-8.3 ALBUMIN (BEAKER) (test dblq=2803) 3.2 g/dL 3.5-5.0 BILIRUBIN TOTAL (BEAKER) (test geds=382) 2.5 mg/dL 0.2-1.2 BILIRUBIN DIRECT (BEAKER) (test awub=529) 1.2 mg/dL 0.1-0.5 ALKALINE PHOSPHATASE (BEAKER) (test nbbi=947) 130 U/L 40-150 AST (SGOT) (BEAKER) (test relu=740) 47 U/L 5-34 ALT (SGPT) (BEAKER) (test vjko=032) 41 U/L 6-55 Specimen slightly [id number] 05:59:00 Test Item Value Reference Range Comments LIPASE (BEAKER) (test jgrz=642) 35 U/L 8-78 Specimen slightly ictericPROTHROMBIN [id number] 05:58:00 Test Item Value Reference Range Comments PROTIME (BEAKER) (test ochk=086) 15.9 seconds 11.9-14.2 INR (BEAKER) (test sjyf=624) 1.3 <=5.9 Effective 09/06/2018: PT Reference Range ChangeNew: 11.9-14.2 Previous: 11.7- 14.7RECOMMENDED COUMADIN/WARFARIN INR THERAPY RANGESSTANDARD DOSE: 2.0-3.0 Includes: PROPHYLAXIS for venous thrombosis, systemic embolization; TREATMENT for venous thrombosis and/or pulmonary embolus.HIGH RISK: Target INR is2.5-3.5 for patients wiht mechanical heart valves.CBC W/PLT COUNT & AUTO [id number] 05:37:00 Test Item Value Reference Range Comments WHITE BLOOD CELL COUNT (BEAKER) (test tptc=417) 2.4 K/ L 3.5-10.5 RED BLOOD CELL COUNT (BEAKER) (test wmqj=681) 3.39 M/ L 3.93-5.22 HEMOGLOBIN (BEAKER) (test kxzm=531) 9.9 GM/DL 11.2-15.7 HEMATOCRIT (BEAKER) (test spbv=772) 31.8 % 34.1-44.9 MEAN CORPUSCULAR VOLUME (BEAKER) (test hfqt=055) 93.8 fL 79.4-94.8 MEAN CORPUSCULAR HEMOGLOBIN (BEAKER) (test 29.2 pg 25.6-32.2 lljd=332) MEAN CORPUSCULAR HEMOGLOBIN CONC (BEAKER) (test 31.1 GM/DL 32.2-35.5 eqwu=520) RED CELL DISTRIBUTION WIDTH (BEAKER) (test 15.4 % 11.7-14.4 waln=195) PLATELET COUNT (BEAKER) (test qqax=151) 38 K/CU MM 150-450 MEAN PLATELET VOLUME (BEAKER) (test hoar=439) 10.2 fL 9.4-12.3 NUCLEATED RED BLOOD CELLS (BEAKER) (test 0 /100 WBC 0-0 kapf=144) NEUTROPHILS RELATIVE PERCENT (BEAKER) (test 57 % xulv=313) LYMPHOCYTES RELATIVE PERCENT (BEAKER) (test 27 % mcol=220) MONOCYTES RELATIVE PERCENT (BEAKER) (test 10 % btdp=694) EOSINOPHILS RELATIVE PERCENT (BEAKER) (test 5 % vaml=553) BASOPHILS RELATIVE PERCENT (BEAKER) (test 1 % rljp=610) NEUTROPHILS ABSOLUTE COUNT (BEAKER) (test 1.38 K/ L 1.56-6.13 glee=355) LYMPHOCYTES ABSOLUTE COUNT (BEAKER) (test 0.65 K/ L 1.18-3.74 alvv=852) MONOCYTES ABSOLUTE COUNT (BEAKER) (test kolj=633) 0.24 K/ L 0.24-0.36 EOSINOPHILS ABSOLUTE COUNT (BEAKER) (test 0.12 K/ L 0.04-0.36 demh=216) BASOPHILS ABSOLUTE COUNT (BEAKER) (test lihu=466) 0.02 K/ L 0.01-0.08 IMMATURE GRANULOCYTES-RELATIVE PERCENT (BEAKER) 0 % 0-1 (test gbbe=3000) POCT-HEMOGLOBIN [id number] 06:12:00 Test Item Value Reference Range Comments POC-HEMOGLOBIN METER (BEAKER) 8.6 g/dL 12.0-15.0 TESTED AT [facility] [address] [facility] (test ygrt=9264) [facility] [id number]
[2019-04-13 06:51] LABS: Absolute Lymphocytes (CBC) 0.5 K/uL (0.7-4.9); Basophils % 0.7 % (0-1.3); Hematocrit 29.4 % (36.0-45.0); MPV 7.7 fL (7.6-11.3); RBC Red Blood Cell Count 3.63 M/uL (3.86-4.86)
[2019-04-13] MEDS ORDERED: PANTOPRAZOLE 40 MG INJ ONE (06:51)
[2019-04-13] MEDS ORDERED: FENTANYL CITR 100 MCG/2 ML ONE (06:51)
[2019-04-13] MEDS ORDERED: ONDANSETRON 4 MG/2 ML VIAL ONE (07:00)
[2019-04-13 07:08] LABS: ALT/SGPT 44 U/L (12-78); AST/SGOT 40 U/L (15-37); Albumin 2.9 g/dL (3.4-5.0); Alkaline Phosphatase 138 U/L (45-117); BUN Blood Urea Nitrogen 7 mg/dL (7-18); Bicarbonate 27 mmol/L (21-32); Bilirubin Direct 0.4 mg/dL (0-0.2); Bilirubin Total 1.2 mg/dL (0.2-1.0); Glucose Level 106 mg/dL (74-106); Lipase 294 U/L (73-393); Potassium 3.8 mmol/L (3.5-5.1); Protein, Total 6.3 g/dL (6.4-8.2); Sodium Level 143 mmol/L (136-145); Troponin (Emerg Dept Use Only) < 0.02 ng/mL (0.0-0.045)
[2019-04-13 08:15] LABS: Urine Blood NEGATIVE (NEG); Urine Glucose NEGATIVE (NEG); Urine Protein NEGATIVE (NEG); Urine Specific Gravity 1.025 (1.005-1.030)
[2019-04-13 08:21] LABS: Anisocytosis 1+; Blood Morphology Comment NOTED (NOT SEEN); Platelet Estimate DECR; Urine White Blood Cell Casts OK
[2019-04-13 08:22] LABS: Rouleau SLIGHT
--- NOTE | 2019-04-13 08:22 | RAD REPORT ---
EXAM DESCRIPTION: CT - Abdomen Pelvis W Contrast - 04/13/2019 7:43 am CLINICAL HISTORY: S/P EGD Epigastric pain, hx of pancreatitis;Abd pain COMPARISON: Abdomen Pelvis W Contrast dated 09/30/2018; TECHNIQUE: Biphasic, helical CT imaging of the abdomen and pelvis was performed following 100 ml non -ionic IV contrast. No oral contrast given. All CT scans are performed using dose optimization technique as appropriate and may include automated exposure control or mA/KV adjustment according to patient size. FINDINGS: No suspicious findings in the lung bases. No focal liver lesions seen. Nodular liver contour along the capsule. Cholecystectomy clips are prese nt. No biliary tree dilatation. Splenomegaly to 20 cm craniocaudal dimension noted. Prominent splenic vasculature seen. No portal vein thrombus. Accessory splenic nodule again noted. No peripancreatic o r pancreatic acute finding. Symmetric renal function is seen with no hydronephrosis or suspicious renal mass. No pyelonephritis o r acute parenchymal process. No bladder abnormalities. No adrenal abnormalities. Uterus and ovaries s how no acute findings. Small ovarian cysts are present. These are similar to Ivone study. No gastric wall thickening or mass identified. No stranding in the adjacent fatty tissues. No focal s mall bowel process. Moderate stool volume fills but does not dilate the colon. No colon mass or focal wall thickening. Minimal stranding is present in the fatty tissues adjacent to the rectum and along the cecum and ascending colon. These are stable findings. No appendicitis findings. No free air or pn eumatosis. No abnormal free fluid collection. Mildly prominent, recannulized umbilical vein noted. N o hernia, mass or bulky lymphadenopathy. No suspicious bony findings. IMPRESSION: No free air, mass or other surgically emergent finding. No acute GI process identifiable. Stranding adjacent to the rectum and right-side colon is a chronic presentation. Stomach is unremarkable. Gastritis can be occult on CT imaging. Cirrhotic liver changes with splenomegaly and prominent upper abdominal vasculature.
--- NOTE | 2019-04-13 08:43 | ER ---
Nurse's Notes [facility] Name: Zenaida Goss Age: 58 yrs Sex: Female : 1960 Arrival Date: 04/13/2019 Time: 06:00 Bed 25 Private MD: Diagnosis: Abdominal and pelvic pain;Nausea Presentation: 04/13 06:32 Presenting complaint: Patient states: she had an EGD on Tuesday and woke up that night bb in excruciating pain she called her doc who prescribed her medication and told her to go to the ED if it doesn't work she is having severe abdominal pain in upper quadrants radiating to her back denies vomiting, diarrhea or fever. Transition of care: patient was not received from another setting of care. Onset of symptoms was April 09, 2019. Risk Assessment: Do you want to hurt yourself or someone else? Patient reports no desire to harm self or others. Initial Sepsis Screen: Does the patient meet any 2 criteria? No. Patient's initial sepsis screen is negative. Does the patient have a suspected source of infection? No. Patient's initial sepsis screen is negative. Care prior to arrival: None. 06:32 Method Of Arrival: Ambulatory bb 06:32 Acuity: TANK 2 bb Historical: - Allergies: 06:36 Morphine (Anaphylaxis); bb - Home Meds: 06:36 Lactulose Oral [Active]; bb - PMHx: 06:36 Anemia; Cirrhosis; fatty liver; Pancreatitis; varices; bb - PSHx: 06:36 EGD; bb - Immunization history:: Adult Immunizations up to date. - Social history:: Smoking status: Patient/guardian denies using tobacco. - Ebola Screening: : No symptoms or risks identified at this time. Screenin:37 Abuse screen: Denies threats or abuse. Nutritional screening: No deficits noted. bb Tuberculosis screening: No symptoms or risk factors identified. Fall Risk None identified. Assessment: 06:37 General: Appears uncomfortable, obese, Behavior is calm, cooperative. Pain: Complains bb of pain in abdomen Pain radiates to back Pain currently is 9 out of 10 on a pain scale. Neuro: Level of Consciousness is awake, alert, obeys commands, Oriented to person, place, time, situation. Cardiovascular: Heart tones S1 S2 present. Respiratory: Airway is patent Respiratory effort is even, unlabored, Respiratory pattern is regular. GI: Abdomen is obese, Bowel sounds present X 4 quads. hyperactive in right upper quadrant, left upper quadrant, right lower quadrant and left lower quadrant Abd is soft X 4 quads Abdomen is tender to palpation in right upper quadrant and left upper quadrant Patient currently denies diarrhea, vomiting. Derm: Skin is pink, warm \T\ dry. Musculoskeletal: Circulation, motion, and sensation intact. Vital Signs: 06:36 BP 120 / 73; Pulse 83; Resp 18 S; Temp 98.2(O); Pulse Ox 99% on R/A; Weight 113.4 kg bb (R); Height 5 ft. 3 in. (160.02 cm) (R); Pain 9/10; 06:36 Body Mass Index 44.29 (113.40 kg, 160.02 cm) bb ED Course: 06:00 Patient arrived in ED. cl3 06:00 Marco A Messina FNP-C [facility]. la1 06:00 Homero Terrell MD is Attending Physician. la1 06:35 Triage completed. bb 06:36 Arm band placed on Patient placed in an exam room, on a stretcher, on pulse oximetry. bb 06:37 Patient has correct armband on for positive identification. Bed in low position. Call bb light in reach. Side rails up X 1. Pulse ox on. NIBP on. Warm blanket given. 06:39 EKG done, by ED staff, reviewed by Homero Terrell MD. bb 06:50 Initial lab(s) drawn, by ED staff, sent to lab. Inserted saline lock: 22 gauge in left bb antecubital area, using aseptic technique. Blood collected. 07:17 Le Hunter, RN is Primary Nurse. iw 07:29 Chest Single View XRAY In Process Unspecified. EDMS 08:00 CT Abd/Pelvis - IV Contrast Only In Process Unspecified. EDMS 08:57 No provider procedures requiring assistance completed. IV discontinued, intact, iw bleeding controlled, No redness/swelling at site. Pressure dressing applied. Administered Medications: 07:00 Drug: ProTONIX 40 mg Route: IVP; Site: left antecubital; bb 08:58 Follow up: Response: No adverse reaction iw 07:03 Drug: Zofran 4 mg Route: IVP; Site: left antecubital; bb 08:58 Follow up: Response: No adverse reaction iw 07:05 Drug: fentaNYL (PF) 50 mcg Route: IVP; Site: left antecubital; bb 08:58 Follow up: Response: No adverse reaction iw 08:56 Drug: [place] (7.5 mg-325 mg) 1 tabs Route: PO; iw 08:57 Follow up: Response: No adverse reaction iw 08:56 Not Given (Other Intervention Used): Zofran 4 mg IVP once; over 2 minutes iw 08:56 Drug: Zofran 4 mg Route: PO; iw 08:57 Follow up: Response: No adverse reaction iw Outcome: 08:41 Discharge ordered by . la1 08:57 Discharged to home ambulatory, with family. iw 08:57 Condition: good 08:57 Discharge instructions given to patient, Instructed on discharge instructions, follow up and referral plans. medication usage, Demonstrated understanding of instructions, follow-up care, medications, Prescriptions given X 2. 09:04 Patient left the ED. iw Signatures: Dispatcher [employer] Jolene Panda RN RN bb Williams, Irene, RN RN iw Marco A Messina, FINANCIAL ADMINISTRATOR-C FINANCIAL ADMINISTRATOR-Cla1 Sejal Long cl3
--- NOTE | 2019-04-13 08:44 | EDPHYS ---
Physician Documentation [facility] Name: Zenaida Goss Age: 58 yrs Sex: Female : 1960 Arrival Date: 04/13/2019 Time: 06:00 Bed 25 Private MD: KARI Physician Homero Terrell HPI: 04/13 07:01 This 58 yrs old Female presents to ER via Ambulatory with complaints of la1 Abdominal Pain. 07:01 The patient presents with abdominal pain in the epigastric area. Onset: The la1 symptoms/episode began/occurred 4 day(s) ago. The symptoms do not radiate. Associated signs and symptoms: Pertinent positives: nausea, Pertinent negatives: blood in stools, chest pain, constipation, diarrhea, dysuria, fever, headache, hematuria. Modifying factors: The symptoms are alleviated by nothing, the symptoms are aggravated by nothing. Severity of pain: At its worst the pain was moderate in the emergency department the pain has improved. The patient has experienced similar episodes in the past. Pt had EGD in [place] at a [facility], has had pain since procedure, they called her in some medications she can not recall what they are. Pt reports epigastric pain, has hx of pancreatitis as well.. Historical: - Allergies: 06:36 Morphine (Anaphylaxis); bb - Home Meds: 06:36 Lactulose Oral [Active]; bb - PMHx: 06:36 Anemia; Cirrhosis; fatty liver; Pancreatitis; varices; bb - PSHx: 06:36 EGD; bb - Immunization history:: Adult Immunizations up to date. - Social history:: Smoking status: Patient/guardian denies using tobacco. - Ebola Screening: : No symptoms or risks identified at this time. ROS: 07:04 Constitutional: Negative for fever, chills, and weight loss, Eyes: Negative for injury, la1 pain, redness, and discharge, ENT: Negative for injury, pain, and discharge, Neck: Negative for injury, pain, and swelling, Cardiovascular: Negative for chest pain, palpitations, and edema, Respiratory: Negative for shortness of breath, cough, wheezing, and pleuritic chest pain, Back: Negative for injury and pain, : Negative for injury, bleeding, discharge, and swelling, MS/Extremity: Negative for injury and deformity, Skin: Negative for injury, rash, and discoloration, Neuro: Negative for headache, weakness, numbness, tingling, and seizure. 07:04 Abdomen/GI: Positive for abdominal pain, nausea, Negative for vomiting, diarrhea, constipation, hematemesis, black/tarry stool, rectal pain, rectal bleeding, bowel incontinence. Exam: 07:05 Constitutional: This is a well developed, well nourished patient who is awake, alert, la1 and in no acute distress. Head/Face: Normocephalic, atraumatic. Eyes: Pupils equal round and reactive to light, extra-ocular motions intact. Periorbital areas with no swelling, redness, or edema. ENT: Mucous membranes moist. Neck: . No Meningismus. Chest/axilla: Normal chest wall appearance and motion. Nontender with no deformity. No lesions are appreciated. Cardiovascular: Regular rate and rhythm with a normal S1 and S2. No gallops, murmurs, or rubs. Normal PMI, no JVD. No pulse deficits. Respiratory: Lungs have equal breath sounds bilaterally, clear to auscultation No rales, rhonchi or wheezes noted. No increased work of breathing, no retractions or nasal flaring. 07:05 Back: No spinal tenderness. No costovertebral tenderness. Full range of motion. Neuro: Awake and alert, GCS 15, oriented to person, place, time, and situation. . Normal gait. 07:05 Abdomen/GI: Inspection: obese Bowel sounds: normal, Palpation: soft, in all quadrants, mild abdominal tenderness, in the epigastric area, right upper quadrant and left upper quadrant, Indicators: McBurney's point is not tender, Manriquez's sign is negative, Rovsing's sign is negative, Obturator sign is negative, Psoas sign is negative. Vital Signs: 06:36 BP 120 / 73; Pulse 83; Resp 18 S; Temp 98.2(O); Pulse Ox 99% on R/A; Weight 113.4 kg bb (R); Height 5 ft. 3 in. (160.02 cm) (R); Pain 9/10; 06:36 Body Mass Index 44.29 (113.40 kg, 160.02 cm) bb MDM: 06:12 Patient medically screened. la1 08:39 Differential diagnosis: AAA, acute coronary syndrome, cholecystitis, Cholelithiasis, la1 diverticulitis, gastritis, gastroesophageal reflux disease, GI Bleed, Mesenteric ischemia or infarction, myocardia ischemia or infarction, non-specific abd pain, pancreatitis, Peptic Ulcer Disease, Perf. Duodenal Ulcer, Perf. Gastric Ulcer. Data reviewed: vital signs, nurses notes, lab test result(s), EKG, radiologic studies, I have discussed the patient's presentation/case with the attending Emergency Department Physician; and as a result, I will discharge patient. Data interpreted: Pulse oximetry: on room air is 99 %. Interpretation: normal. Test interpretation: by ED physician or midlevel provider: ECG, plain radiologic studies. Counseling: I had a detailed discussion with the patient and/or guardian regarding: the historical points, exam findings, and any diagnostic results supporting the discharge/admit diagnosis, the presence of at least one elevated blood pressure reading (>120/80) during this emergency department visit, radiology results, the need for outpatient follow up, a grab jack man, to return to the emergency department if symptoms worsen or persist or if there are any questions or concerns that arise at home. Medication response: fentanyl, protonix. Response to treatment: the patient's symptoms have mildly improved after treatment. Special discussion: Based on the patient's Hx, exam, and Dx evaluation, there is no indication for emergent surgery or inpatient Tx. It is understood by the patient/guardian that if the Sx's persist or worsen they need to return immediately for re-evaluation. I discussed with the patient/guardian in detail that at this point there is no indication for admission to the hospital. It is understood, however, that if the symptoms persist or worsen the patient needs to return immediately for re-evaluation. Based on the history and exam findings, there is no indication for further emergent testing or inpatient evaluation. I discussed with the patient/guardian the need to see the grab jack man for further evaluation of the symptoms. ED course: Pt instructed to continue medications from GI doctor and FU in office, strict return precautions given. 04/13 06:25 Order name: Basic Metabolic Panel; Complete Time: 07:20 04/13 06:25 Order name: CBC with Diff 04/13 06:25 Order name: Creatinine for Radiology; Complete Time: 07:20 04/13 06:25 Order name: Hepatic Function; Complete Time: 07:20 04/13 06:25 Order name: Lipase; Complete Time: 07:20 la04/13 06:25 Order name: Troponin (emerg Dept Use Only); Complete Time: 07:20 la04/13 06:25 Order name: Chest Single View XRAY la04/13 07:21 Order name: CT Abd/Pelvis - IV Contrast Only; Complete Time: 08:33 la1 04/13 08:10 Order name: Urine Dipstick--Ancillary (enter results) 1 04/13 08:15 Order name: Urine Dipstick-Ancillary; Complete Time: 08:20 EDMS 04/13 08:23 Order name: CBC Smear Scan EDMS 04/13 06:25 Order name: IV Saline Lock; Complete Time: 06:44 la04/13 06:25 Order name: Labs collected and sent; Complete Time: 06:44 la04/13 06:25 Order name: Urine Dipstick-Ancillary (obtain specimen); Complete Time: 08:10 la04/13 06:25 Order name: EKG; Complete Time: 06:27 la04/13 06:25 Order name: EKG - Nurse/Tech; Complete Time: 06:44 la1 Administered Medications: 07:00 Drug: ProTONIX 40 mg Route: IVP; Site: left antecubital; bb 08:58 Follow up: Response: No adverse reaction iw 07:03 Drug: Zofran 4 mg Route: IVP; Site: left antecubital; bb 08:58 Follow up: Response: No adverse reaction iw 07:05 Drug: fentaNYL (PF) 50 mcg Route: IVP; Site: left antecubital; bb 08:58 Follow up: Response: No adverse reaction iw 08:56 Drug: [place] (7.5 mg-325 mg) 1 tabs Route: PO; iw 08:57 Follow up: Response: No adverse reaction iw 08:56 Not Given (Other Intervention Used): Zofran 4 mg IVP once; over 2 minutes iw 08:56 Drug: Zofran 4 mg Route: PO; iw 08:57 Follow up: Response: No adverse reaction iw Disposition: 04/13/19 08:41 Discharged to Home. Impression: Abdominal and pelvic pain, Nausea. - Condition is Stable. - Discharge Instructions: Abdominal Pain, Adult, Nausea and Vomiting, Adult, Upper Endoscopy, Abdominal Pain, Adult, [id number], Upper Endoscopy, Care After. - Prescriptions for Tylenol- Codeine #3 300-30 mg Oral Tablet - take 2 tablets by ORAL route every 6 hours As needed; 12 tablet. Zofran 4 mg Oral Tablet - take 1 tablet by ORAL route every 12 hours As needed; 20 tablet. - Medication Reconciliation Form, Thank You Letter, Prescription Opioid Use form. - Follow up: Private Physician; When: 2 - 3 days; Reason: Recheck today's complaints, Re-evaluation by your physician. Follow up: Emergency Department; When: As needed; Reason: Worsening of condition. - Problem is new. - Symptoms have improved. Addendum: 04/16/2019 09:25 Co-signature as Attending Physician, Homero Terrell MD I agree with the assessment and c leone plan of care. Signatures: Dispatcher [employer] EDHomero Padilla MD MD cha Ballard, Brenda RN RN bb Le Hunter RN RN iw Maroc A Messina, RECEIVING OPERATOR-C RECEIVING OPERATOR-Cla1 Corrections: (The following items were deleted from the chart) 04/13 09:04 08:41 04/13/2019 08:41 Discharged to Home. Impression: Abdominal and pelvic pain; iw Nausea. Condition is Stable. Forms are Medication Reconciliation Form, Thank You Letter, Antibiotic Education, Prescription Opioid Use. Follow up: Private Physician; When: 2 - 3 days; Reason: Recheck today's complaints, Re-evaluation by your physician. Follow up: Emergency Department; When: As needed; Reason: Worsening of condition. Problem is new. Symptoms have improved. la1
[2019-04-13] MEDS ORDERED: ONDANSETRON 4 MG (ODT) TAB ONE (08:52)
[2019-04-13] MEDS ORDERED: HYDROCODONE/APAP 7.5/325 MG TAB ONE (08:52)
[2019-04-13 09:19] VITALS: BP 120/73; TEMP 98.2; O2SAT 99
--- NOTE | 2019-04-13 09:41 | RAD REPORT ---
EXAM DESCRIPTION: RAD - Chest Single View - 04/13/2019 6:57 am CLINICAL HISTORY: Severe epigastric pain, recent EEG T COMPARISON: January 2019 TECHNIQUE: AP portable chest image was obtained 0652 hours . FINDINGS: Low lung volumes noted. This accentuates interstitial pattern, heart size and vasculature. Body habitus contributes to this as well. No significant failure or volume overload findings. Early or mild interstitial edema or infiltrate ca n be masked. Heart and vasculature are normal. No measurable pleural effusion and no pneumothorax. No acute bony abnormality seen. No acute aortic findings suspected. IMPRESSION: Limited portable study without acute cardiopulmonary finding. No significant change from comparison. Early edema or infiltrate can be masked.
--- NOTE | 2019-04-13 13:48 | EKG ---
Test Date: 2019-04-13 Test Time: 06:31:28 [place]: FAISAL MEASUREMENT RESULTS: Intervals: Rate: 72 NH: 150 QRSD: 96 QT: 426 QTc: 466 [place]: P: 53 NH: 150 QRS: 60 T: 51 INTERPRETIVE STATEMENTS: Normal sinus rhythm Normal ECG Compared to ECG 01/13/2019 20:46:52 No significant changes Electronically Signed On 04-13-19 13:46:53 MATTRESS INSPECTOR by Miguel Crenshaw
== END 2019-04-13 09:04 | disposition home or self-care (01) ==
LOC: ER 05:55
DX: R11.0 Nausea (principal); Z88.5 Allergy status to narcotic agent
CPT/HCPCS: 93005; 85025; 80048; 36415; 80076; 81003; 84484; 83690; 74177; 71045; 96375; 96374; 99284; Q9967; C9113; J3010; J2405

== ENCOUNTER 2019-04-24 23:22 | Emergency (ER) | payer OTHER ==
--- OUTSIDE RECORDS SUMMARY | 2019-04-24 23:25 | XMS REPORT ---
:1960 [facility] Address [address] [place] [address] Care Team Providers Name Role Phone AVI [...] ID: VIEW, NON DEPT exam:->SOBShould this be [phone] CLINICAL performed at the HISTORY: SOB TECHNIQUE: bedside?->Yes 1 view of the chest. COMPARISON: None IMPRESSION: There is pulmonary vascular congestion with prominent lung markings bilaterally. Subpulmonic pleural effusions cannot be excluded. The cardiomediastinal silhouette is magnified by technique. Signed: Franky Hoyt MDReport Verified Date/Time: 10/03/2018 07:50:47 Reading Location: [facility] Radiology Reading Room ESIUM 2018-10-03 07:37:00 Test Item Value Reference Range Comments MAGNESIUM (BEAKER) (test oyco=548) 1.6 mg/dL 1.6-2.6 BASIC METABOLIC [id number] 07:37:00 Test Item Value Reference Range Comments SODIUM (BEAKER) (test 138 meq/L 136-145 yqki=352) POTASSIUM (BEAKER) (test 4.0 meq/L 3.5-5.1 qqai=497) CHLORIDE (BEAKER) (test 107 meq/L 98-107 olnz=275) CO2 (BEAKER) (test 25 meq/L 22-29 ynxt=278) BLOOD UREA NITROGEN 10 mg/dL 7-21 (BEAKER) (test ryux=107) CREATININE (BEAKER) (test 0.65 mg/dL 0.57-1.25 ggro=042) GLUCOSE RANDOM (BEAKER) 99 mg/dL 70-105 (test tpps=772) CALCIUM (BEAKER) (test 8.2 mg/dL 8.4-10.2 aapz=588) EGFR (BEAKER) (test 94 mL/min/1.73 sq m ESTIMATED GFR IS NOT rers=0470) ACCURATE CREATININE CLEARANCE IN PREDICTING GLOMERULAR FILTRATION RATE. ESTIMATED GFR IS NOT APPLICABLE FOR DIALYSIS PATIENTS. Specimen slightly ictericHEPATIC FUNCTION [id number] 07:37:00 Test Item Value Reference Range Comments TOTAL PROTEIN (BEAKER) (test fuoa=606) 5.9 gm/dL 6.0-8.3 ALBUMIN (BEAKER) (test krpz=7284) 3.1 g/dL 3.5-5.0 BILIRUBIN TOTAL (BEAKER) (test nalx=439) 2.0 mg/dL 0.2-1.2 BILIRUBIN DIRECT (BEAKER) (test ljol=261) 1.0 mg/dL 0.1-0.5 ALKALINE PHOSPHATASE (BEAKER) (test glmu=025) 123 U/L 40-150 AST (SGOT) (BEAKER) (test exan=034) 45 U/L 5-34 ALT (SGPT) (BEAKER) (test qkkl=076) 35 U/L 6-55 Specimen slightly ictericPROTHROMBIN [id number] 06:25:00 Test Item Value Reference Range Comments PROTIME (BEAKER) (test sqpv=307) 15.2 seconds 11.9-14.2 INR (BEAKER) (test iyus=016) 1.3 <=5.9 Effective 09/06/2018: PT Reference Range ChangeNew: 11.9-14.2 Previous: 11.7- 14.7RECOMMENDED COUMADIN/WARFARIN INR THERAPY RANGESSTANDARD DOSE: 2.0-3.0 Includes: PROPHYLAXIS for venous thrombosis, systemic embolization; TREATMENT for venous thrombosis and/or pulmonary embolus.HIGH RISK: Target INR is2.5-3.5 for patients wiht mechanical heart valves.CBC W/PLT COUNT & AUTO [id number] 06:16:00 Test Item Value Reference Range Comments WHITE BLOOD CELL COUNT (BEAKER) (test ulwd=394) 2.4 K/ L 3.5-10.5 RED BLOOD CELL COUNT (BEAKER) (test niuh=878) 3.26 M/ L 3.93-5.22 HEMOGLOBIN (BEAKER) (test dtqd=354) 9.6 GM/DL 11.2-15.7 HEMATOCRIT (BEAKER) (test oxft=041) 30.8 % 34.1-44.9 MEAN CORPUSCULAR VOLUME (BEAKER) (test yqxe=292) 94.5 fL 79.4-94.8 MEAN CORPUSCULAR HEMOGLOBIN (BEAKER) (test 29.4 pg 25.6-32.2 huvh=493) MEAN CORPUSCULAR HEMOGLOBIN CONC (BEAKER) (test 31.2 GM/DL 32.2-35.5 iiul=513) RED CELL DISTRIBUTION WIDTH (BEAKER) (test 15.2 % 11.7-14.4 utlb=052) PLATELET COUNT (BEAKER) (test fsvz=912) 38 K/CU MM 150-450 MEAN PLATELET VOLUME (BEAKER) (test wmos=996) 10.3 fL 9.4-12.3 NUCLEATED RED BLOOD CELLS (BEAKER) (test 0 /100 WBC 0-0 yfwa=503) NEUTROPHILS RELATIVE PERCENT (BEAKER) (test 57 % dbnl=111) LYMPHOCYTES RELATIVE PERCENT (BEAKER) (test 26 % qvbc=343) MONOCYTES RELATIVE PERCENT (BEAKER) (test 11 % xykg=798) EOSINOPHILS RELATIVE PERCENT (BEAKER) (test 6 % kmqg=215) BASOPHILS RELATIVE PERCENT (BEAKER) (test 0 % kdeb=509) NEUTROPHILS ABSOLUTE COUNT (BEAKER) (test 1.35 K/ L 1.56-6.13 ssjm=318) LYMPHOCYTES ABSOLUTE COUNT (BEAKER) (test 0.61 K/ L 1.18-3.74 clww=010) MONOCYTES ABSOLUTE COUNT (BEAKER) (test xxdf=672) 0.26 K/ L 0.24-0.36 EOSINOPHILS ABSOLUTE COUNT (BEAKER) (test 0.15 K/ L 0.04-0.36 nasl=176) BASOPHILS ABSOLUTE COUNT (BEAKER) (test thje=335) 0.01 K/ L 0.01-0.08 IMMATURE GRANULOCYTES-RELATIVE PERCENT (BEAKER) 0 % 0-1 (test juey=5630) (CELLAVISION MANUAL DIFF)2018-10-02 09:41:00 Test Item Value Reference Range Comments NEUTROPHILS - REL (CELLAVISION)(BEAKER) (test 70 % nmgz=6824) LYMPHOCYTES - REL (CELLAVISION)(BEAKER) (test 21 % ijnt=3749) MONOCYTES - REL (CELLAVISION)(BEAKER) (test 9 % mnja=3469) NEUTROPHILS - ABS (CELLAVISION)(BEAKER) (test 1.40 K/ul 1.56-6.13 nsao=4574) LYMPHOCYTES - ABS (CELLAVISION)(BEAKER) (test 0.42 K/ul 1.18-3.74 muly=9783) MONOCYTES - ABS (CELLAVISION)(BEAKER) (test 0.18 K/uL 0.24-0.36 ffwx=1271) TOTAL COUNTED (BEAKER) (test usnb=1281) 100 RBC MORPHOLOGY (BEAKER) (test bwld=911) Normal WBC MORPHOLOGY (BEAKER) (test iipu=460) Normal PLT MORPHOLOGY (BEAKER) (test hwwi=426) Normal ARTIFACT (CELLAVISION)(BEAKER) (test xqyi=7728) Present PLATELET CONCENTRATION (CELLAVISION)(BEAKER) (test Decreased xjkq=8121) Received comment: User comments: Slide comments:[id number] 05:58:00 Test Item Value Reference Range Comments MAGNESIUM (BEAKER) (test vgzp=092) 1.6 mg/dL 1.6-2.6 BASIC METABOLIC [id number] 05:58:00 Test Item Value Reference Range Comments SODIUM (BEAKER) (test 138 meq/L 136-145 jvif=442) POTASSIUM (BEAKER) (test 4.0 meq/L 3.5-5.1 yeis=425) CHLORIDE (BEAKER) (test 107 meq/L 98-107 akus=102) CO2 (BEAKER) (test 26 meq/L 22-29 qdtn=776) BLOOD UREA NITROGEN 12 mg/dL 7-21 (BEAKER) (test hbmk=929) CREATININE (BEAKER) (test 0.64 mg/dL 0.57-1.25 xnbj=644) GLUCOSE RANDOM (BEAKER) 107 mg/dL 70-105 (test pusm=757) CALCIUM (BEAKER) (test 8.0 mg/dL 8.4-10.2 cfzn=662) EGFR (BEAKER) (test 96 mL/min/1.73 sq m ESTIMATED GFR IS NOT ziif=6787) ACCURATE CREATININE CLEARANCE IN PREDICTING GLOMERULAR FILTRATION RATE. ESTIMATED GFR IS NOT APPLICABLE FOR DIALYSIS PATIENTS. Specimen slightly ictericHEPATIC FUNCTION [id number] 05:58:00 Test Item Value Reference Range Comments TOTAL PROTEIN (BEAKER) (test okch=965) 5.8 gm/dL 6.0-8.3 ALBUMIN (BEAKER) (test akhv=1701) 3.0 g/dL 3.5-5.0 BILIRUBIN TOTAL (BEAKER) (test zxsv=157) 2.2 mg/dL 0.2-1.2 BILIRUBIN DIRECT (BEAKER) (test rwjs=914) 1.1 mg/dL 0.1-0.5 ALKALINE PHOSPHATASE (BEAKER) (test nbum=097) 125 U/L 40-150 AST (SGOT) (BEAKER) (test ogay=407) 49 U/L 5-34 ALT (SGPT) (BEAKER) (test forq=158) 39 U/L 6-55 Specimen slightly ictericPROTHROMBIN [id number] 05:26:00 Test Item Value Reference Range Comments PROTIME (BEAKER) (test oenb=282) 15.3 seconds 11.9-14.2 INR (BEAKER) (test xlsa=103) 1.3 <=5.9 Effective 09/06/2018: PT Reference Range ChangeNew: 11.9-14.2 Previous: 11.7- 14.7RECOMMENDED COUMADIN/WARFARIN INR THERAPY RANGESSTANDARD DOSE: 2.0-3.0 Includes: PROPHYLAXIS for venous thrombosis, systemic embolization; TREATMENT for venous thrombosis and/or pulmonary embolus.HIGH RISK: Target INR is2.5-3.5 for patients wiht mechanical heart valves.CBC W/PLT COUNT & AUTO [id number] 05:20:00 Test Item Value Reference Range Comments WHITE BLOOD CELL COUNT (BEAKER) (test rywy=656) 2.0 K/ L 3.5-10.5 RED BLOOD CELL COUNT (BEAKER) (test nucx=824) 3.20 M/ L 3.93-5.22 HEMOGLOBIN (BEAKER) (test vwow=808) 9.5 GM/DL 11.2-15.7 HEMATOCRIT (BEAKER) (test lkoy=319) 30.5 % 34.1-44.9 MEAN CORPUSCULAR VOLUME (BEAKER) (test eotz=689) 95.3 fL 79.4-94.8 MEAN CORPUSCULAR HEMOGLOBIN (BEAKER) (test 29.7 pg 25.6-32.2 yhke=936) MEAN CORPUSCULAR HEMOGLOBIN CONC (BEAKER) (test 31.1 GM/DL 32.2-35.5 ptwl=476) RED CELL DISTRIBUTION WIDTH (BEAKER) (test 15.2 % 11.7-14.4 rcfg=194) PLATELET COUNT (BEAKER) (test kbnd=713) 39 K/CU MM 150-450 MEAN PLATELET VOLUME (BEAKER) (test ezzz=969) 10.9 fL 9.4-12.3 NUCLEATED RED BLOOD CELLS (BEAKER) (test 0 /100 WBC 0-0 jfey=255) VITAMIN [id number] 06:57:00 Test Item Value Reference Range Comments VITAMIN B12 (BEAKER) (test foqz=438) 178 pg/mL 213-816 [id number] 06:57:00 Test Item Value Reference Range Comments FERRITIN (BEAKER) (test nniw=383) 21 ng/mL 5-275 FOLATE, [id number] 06:57:00 Test Item Value Reference Range Comments FOLATE (BEAKER) (test onlu=381) 11.3 ng/mL >=7.0 IRON, TIBC, % SAT. (WITHOUT FERRITIN)2018-10-01 05:59:00 Test Item Value Reference Range Comments IRON (BEAKER) (test dzcw=702) 81.0 ug/dL 40.0-160.0 TOTAL IRON BINDING CAPACITY (BEAKER) (test 291 ug/dL 250-450 xkdo=912) IRON % SATURATION (2) (BEAKER) (test jych=2393) 28 % 20-55 [id number] 05:59:00 Test Item Value Reference Range Comments MAGNESIUM (BEAKER) (test grea=841) 1.7 mg/dL 1.6-2.6 BASIC METABOLIC [id number] 05:59:00 Test Item Value Reference Range Comments SODIUM (BEAKER) (test 141 meq/L 136-145 fbxf=803) POTASSIUM (BEAKER) (test 4.0 meq/L 3.5-5.1 solw=553) CHLORIDE (BEAKER) (test 110 meq/L 98-107 pkzs=164) CO2 (BEAKER) (test 26 meq/L 22-29 nhay=089) BLOOD UREA NITROGEN 11 mg/dL 7-21 (BEAKER) (test goxf=688) CREATININE (BEAKER) (test 0.62 mg/dL 0.57-1.25 yjvm=311) GLUCOSE RANDOM (BEAKER) 97 mg/dL 70-105 (test gxjv=604) CALCIUM (BEAKER) (test 8.4 mg/dL 8.4-10.2 lrwd=363) EGFR (BEAKER) (test 99 mL/min/1.73 sq m ESTIMATED GFR IS NOT rhfj=5472) ACCURATE CREATININE CLEARANCE IN PREDICTING GLOMERULAR FILTRATION RATE. ESTIMATED GFR IS NOT APPLICABLE FOR DIALYSIS PATIENTS. Specimen slightly ictericLIPID [id number] 05:59:00 Test Item Value Reference Range Comments TRIGLYCERIDES (BEAKER) (test mbkj=896) 64 mg/dL CHOLESTEROL (BEAKER) (test enxu=914) 142 mg/dL HDL CHOLESTEROL (BEAKER) (test vbds=024) 44 mg/dL LDL CHOLESTEROL CALCULATED (BEAKER) (test 85 mg/dL dvkd=545) Triglyceride Reference Range: Low Risk <150 Borderline 150- 199 High Risk 200-499 Very High Risk >=500Cholesterol Reference Range: Low Risk <200 Borderline 200-239 High Risk > 240HDL Cholesterol Reference Range: Low Risk >=60 High Risk <40LDL Cholesterol Reference Range: Optimal <100 Near Optimal 100-129 Borderline 130-159 High 160-189 Very High >=190 Specimen slightly ictericHEPATIC FUNCTION [id number] 05:59: 00 Test Item Value Reference Range Comments TOTAL PROTEIN (BEAKER) (test rzrt=970) 6.1 gm/dL 6.0-8.3 ALBUMIN (BEAKER) (test qwwx=5588) 3.2 g/dL 3.5-5.0 BILIRUBIN TOTAL (BEAKER) (test ykuc=616) 2.5 mg/dL 0.2-1.2 BILIRUBIN DIRECT (BEAKER) (test jkbi=352) 1.2 mg/dL 0.1-0.5 ALKALINE PHOSPHATASE (BEAKER) (test dxtt=342) 130 U/L 40-150 AST (SGOT) (BEAKER) (test wbdt=813) 47 U/L 5-34 ALT (SGPT) (BEAKER) (test ptqu=257) 41 U/L 6-55 Specimen slightly [id number] 05:59:00 Test Item Value Reference Range Comments LIPASE (BEAKER) (test nwbe=747) 35 U/L 8-78 Specimen slightly ictericPROTHROMBIN [id number] 05:58:00 Test Item Value Reference Range Comments PROTIME (BEAKER) (test bprs=560) 15.9 seconds 11.9-14.2 INR (BEAKER) (test txej=658) 1.3 <=5.9 Effective 09/06/2018: PT Reference Range ChangeNew: 11.9-14.2 Previous: 11.7- 14.7RECOMMENDED COUMADIN/WARFARIN INR THERAPY RANGESSTANDARD DOSE: 2.0-3.0 Includes: PROPHYLAXIS for venous thrombosis, systemic embolization; TREATMENT for venous thrombosis and/or pulmonary embolus.HIGH RISK: Target INR is2.5-3.5 for patients wiht mechanical heart valves.CBC W/PLT COUNT & AUTO [id number] 05:37:00 Test Item Value Reference Range Comments WHITE BLOOD CELL COUNT (BEAKER) (test ycge=677) 2.4 K/ L 3.5-10.5 RED BLOOD CELL COUNT (BEAKER) (test fdmi=807) 3.39 M/ L 3.93-5.22 HEMOGLOBIN (BEAKER) (test fkpj=625) 9.9 GM/DL 11.2-15.7 HEMATOCRIT (BEAKER) (test hxva=638) 31.8 % 34.1-44.9 MEAN CORPUSCULAR VOLUME (BEAKER) (test wvun=397) 93.8 fL 79.4-94.8 MEAN CORPUSCULAR HEMOGLOBIN (BEAKER) (test 29.2 pg 25.6-32.2 rima=721) MEAN CORPUSCULAR HEMOGLOBIN CONC (BEAKER) (test 31.1 GM/DL 32.2-35.5 hyrk=573) RED CELL DISTRIBUTION WIDTH (BEAKER) (test 15.4 % 11.7-14.4 ztnf=269) PLATELET COUNT (BEAKER) (test lren=149) 38 K/CU MM 150-450 MEAN PLATELET VOLUME (BEAKER) (test oxrq=233) 10.2 fL 9.4-12.3 NUCLEATED RED BLOOD CELLS (BEAKER) (test 0 /100 WBC 0-0 acjt=308) NEUTROPHILS RELATIVE PERCENT (BEAKER) (test 57 % uadr=878) LYMPHOCYTES RELATIVE PERCENT (BEAKER) (test 27 % mouc=844) MONOCYTES RELATIVE PERCENT (BEAKER) (test 10 % bdpf=458) EOSINOPHILS RELATIVE PERCENT (BEAKER) (test 5 % dvse=358) BASOPHILS RELATIVE PERCENT (BEAKER) (test 1 % tcvt=991) NEUTROPHILS ABSOLUTE COUNT (BEAKER) (test 1.38 K/ L 1.56-6.13 fhui=831) LYMPHOCYTES ABSOLUTE COUNT (BEAKER) (test 0.65 K/ L 1.18-3.74 gzms=605) MONOCYTES ABSOLUTE COUNT (BEAKER) (test wdtp=649) 0.24 K/ L 0.24-0.36 EOSINOPHILS ABSOLUTE COUNT (BEAKER) (test 0.12 K/ L 0.04-0.36 ljqi=859) BASOPHILS ABSOLUTE COUNT (BEAKER) (test dxju=664) 0.02 K/ L 0.01-0.08 IMMATURE GRANULOCYTES-RELATIVE PERCENT (BEAKER) 0 % 0-1 (test kyou=5501) POCT-HEMOGLOBIN [id number] 06:12:00 Test Item Value Reference Range Comments POC-HEMOGLOBIN METER (BEAKER) 8.6 g/dL 12.0-15.0 TESTED AT [facility] [address] (test cogh=8056) [facility] [place] [address]
[2019-04-25 00:41] LABS: Absolute Lymphocytes (CBC) 0.8 K/uL (0.7-4.9); Basophils % 0.8 % (0-1.3); Hematocrit 27.4 % (36.0-45.0); Lymphocytes % 29.7 % (15.3-44.8); MPV 9.2 fL (7.6-11.3); RBC Red Blood Cell Count 3.38 M/uL (3.86-4.86)
[2019-04-25 00:42] LABS: Protime INR 1.14
[2019-04-25] MEDS ORDERED: ONDANSETRON 4 MG/2 ML VIAL ONE (00:49)
[2019-04-25] MEDS ORDERED: FUROSEMIDE 20 MG/ 2ML VIAL ONE (00:49)
[2019-04-25] MEDS ORDERED: FUROSEMIDE 40 MG/4 ML VIAL ONE (00:50)
[2019-04-25 00:56] LABS: ALT/SGPT 45 U/L (12-78); AST/SGOT 35 U/L (15-37); Alkaline Phosphatase 142 U/L (45-117); BUN Blood Urea Nitrogen 10 mg/dL (7-18); Bicarbonate 26 mmol/L (21-32); Bilirubin Direct 0.4 mg/dL (0-0.2); Bilirubin Total 1.1 mg/dL (0.2-1.0); Glucose Level 104 mg/dL (74-106); NT PRO-BNP 14 pg/mL (<125); Potassium 3.8 mmol/L (3.5-5.1); Protein, Total 6.4 g/dL (6.4-8.2); Sodium Level 142 mmol/L (136-145); Troponin (Emerg Dept Use Only) < 0.02 ng/mL (0.0-0.045)
[2019-04-25 01:58] LABS: Platelet Estimate DECR; Urine White Blood Cell Casts OK
[2019-04-25 01:59] LABS: Anisocytosis SLIGHT; Blood Morphology Comment NOTED (NOT SEEN); Polychromasia 1+
[2019-04-25] MEDS ORDERED: PROMETHAZINE INJ 25 MG/ML AMP ONE (02:01)
--- NOTE | 2019-04-25 02:10 | ER ---
Nurse's Notes [facility] Name: Zenaida Goss Age: 59 yrs Sex: Female : 1960 Arrival Date: 04/24/2019 Time: 23:25 Bed 17 Private MD: Diagnosis: Shortness of breath;Nausea;Aplastic anemia, unspecified Presentation: 04/24 23:30 Presenting complaint: Patient states: she woke up with a tightness in her chest and aa1 felt like she could catch her breath. Denies pain. States, "It just feels tight." Pt reports symptoms are worse when laying flat and that she also been having swelling in BLE as well. Transition of care: patient was not received from another setting of care. Onset of symptoms was April 24, 2019. Risk Assessment: Do you want to hurt yourself or someone else? Patient reports no desire to harm self or others. Initial Sepsis Screen: Does the patient meet any 2 criteria? No. Patient's initial sepsis screen is negative. Does the patient have a suspected source of infection? No. Patient's initial sepsis screen is negative. Care prior to arrival: None. 23:30 Method Of Arrival: Ambulatory aa1 23:30 Acuity: TANK 3 aa1 Historical: - Allergies: 23:53 Morphine (Anaphylaxis); aa1 - Home Meds: 23:53 Lactulose Oral [Active]; aa1 - PMHx: 23:53 Anemia; Cirrhosis; fatty liver; Pancreatitis; varices; aa1 - PSHx: 23:53 EGD; Cholecystectomy; Appendectomy; aa1 - Immunization history:: Flu vaccine is not up to date. - Social history:: Smoking status: Patient/guardian denies using tobacco. - Ebola Screening: : Patient denies exposure to infectious person Patient denies travel to an Ebola-affected area in the 21 days before illness onset. Screenin:40 Abuse screen: Denies threats or abuse. Denies injuries from another. Nutritional aa1 screening: No deficits noted. Tuberculosis screening: No symptoms or risk factors identified. Fall Risk None identified. Assessment: 23:40 General: Appears in no apparent distress. comfortable, Behavior is calm, cooperative, aa1 appropriate for age. Pain: Denies pain. Neuro: Level of Consciousness is awake, alert, obeys commands, Oriented to person, place, time, situation, Moves all extremities. Full function Gait is steady, Speech is normal. Cardiovascular: Heart tones S1 S2 present Capillary refill < 3 seconds Clubbing of nail beds is absent JVD is absent Patient's skin is warm and dry. Edema is 2+ to left ankle, left foot, left toes, right ankle, right foot and right toes Rhythm is regular. Respiratory: Reports shortness of breath at rest Airway is patent Respiratory effort is even, unlabored, Respiratory pattern is regular, symmetrical, Breath sounds are clear bilaterally. the patient has mild shortness of breath. GI: No signs and/or symptoms were reported involving the gastrointestinal system. : No signs and/or symptoms were reported regarding the genitourinary system. EENT: No signs and/or symptoms were reported regarding the EENT system. Derm: Skin is intact, is healthy with good turgor, Skin is pink, warm \\T\\ dry. Musculoskeletal: Circulation, motion, and sensation intact. Capillary refill < 3 seconds. 04/25 00:30 Reassessment: Patient appears in no apparent distress at this time. Patient and/or aa1 family updated on plan of care and expected duration. Pain level reassessed. Patient is alert, oriented x 3, equal unlabored respirations, skin warm/dry/pink. Awaiting lab results. 01:50 Reassessment: Patient appears in no apparent distress at this time. Patient and/or aa1 family updated on plan of care and expected duration. Pain level reassessed. Patient is alert, oriented x 3, equal unlabored respirations, skin warm/dry/pink. Awaiting provider reassessment. 02:23 Reassessment: Patient appears in no apparent distress at this time. Patient is alert, aa1 oriented x 3, equal unlabored respirations, skin warm/dry/pink. Discussed d/c \\T\\ f/u instructions with pt \\T\\ family; denies questions or concerns at this time. Ambulatory to lobby with steady gait. Patient denies pain at this time. Patient states feeling better. Patient states symptoms have improved. Vital Signs: 04/24 23:30 BP 119 / 52; Pulse 84; Resp 20; Temp 98.3; Pulse Ox 100% on R/A; Weight 113.4 kg; aa1 Height 5 ft. 3 in. (160.02 cm); Pain 0/10; 04/25 00:30 BP 110 / 47; Pulse 81; Resp 20; Pulse Ox 98% on R/A; aa1 01:30 BP 127 / 58; Pulse 82; Resp 22; Pulse Ox 100% on R/A; Pain 3/10; aa1 04/24 23:30 Body Mass Index 44.29 (113.40 kg, 160.02 cm) aa1 ED Course: 04/24 23:25 Patient arrived in ED. cl3 23:30 Arm band placed on right wrist. aa1 23:38 Scott Eastman PA is PHCP. jr8 23:38 Jozef Youssef MD is Attending Physician. jr8 23:40 Patient has correct armband on for positive identification. Placed in gown. Bed in low aa1 position. Call light in reach. court recording monitor on. Pulse ox on. NIBP on. 23:40 EKG done, by ED staff, reviewed by Jozef Youssef MD. ds4 23:48 Rhonda Gibson, ERIC is Primary Nurse. aa1 23:50 Triage completed. aa1 04/25 00:01 Missed attempt(s): 20 gauge in left antecubital area. Bleeding controlled, band aid ds4 applied, catheter tip intact. 00:03 XRAY Chest (1 view) In Process Unspecified. EDMS 00:15 Initial lab(s) drawn, by me, sent to lab. Inserted saline lock: 20 gauge in left aa1 antecubital area, using aseptic technique. Blood collected. 00:51 Notified Nurse Practitioner and/or Physician Towel Rolling Machine Operator of a critical lab result(s), PLT jb4 35. 02:09 Zoila Gautam MD is Referral Physician. jr8 02:23 No provider procedures requiring assistance completed. IV discontinued, intact, aa1 bleeding controlled, No redness/swelling at site. Pressure dressing applied. Administered Medications: 00:50 Drug: Zofran 4 mg Route: IVP; Site: left antecubital; aa1 01:55 Follow up: Response: No adverse reaction; Nausea unchanged aa1 00:50 Drug: Furosemide 60 mg Route: IVP; Site: left antecubital; aa1 01:50 Follow up: Urine output 1500 ml; Response: No adverse reaction; Marked relief of aa1 symptoms 01:58 Drug: Phenergan 12.5 mg Route: IVP; Site: left antecubital; aa1 02:23 Follow up: Response: No adverse reaction; Nausea is decreased aa1 Output: 01:50 Urine: 1500ml; Total: 1500ml. aa1 Outcome: 02:10 Discharge ordered by . mignon 02:23 Discharged to home ambulatory, with family. aa1 02:23 Condition: good 02:23 Discharge instructions given to patient, family, Instructed on discharge instructions, follow up and referral plans. medication usage, Demonstrated understanding of instructions, follow-up care, medications, Prescriptions given X 2. 02:24 Patient left the ED. aa1 Signatures: Dispatcher [employer] EDMS Rhonda Gibson RN RN aa1 Scott Eastman PA PA jr8 Modesto Lopez ds4 Gilberto Hoang RN RN jb4 Sejal Long cl3 Corrections: (The following items were deleted from the chart) 00:06 04/24 23:40 EKG done, by ED staff, reviewed by Jozef Youssef MD aa1 ds4 04/25 00:06 00:01 Missed attempt(s): 20 gauge in left antecubital area. Bleeding controlled, band ds4 aid applied, catheter tip intact. ds4 00:06 00:01 EKG done, ds4 ds4
--- NOTE | 2019-04-25 02:10 | EDPHYS ---
Physician Documentation [facility] Name: Zenaida Goss Age: 59 yrs Sex: Female : 1960 Arrival Date: 04/24/2019 Time: 23:25 Bed 17 Private MD: ED Physician Jozef Youssef HPI: 04/25 00:49 This 59 yrs old Female presents to ER via Ambulatory with complaints of jr8 Shortness Of Breath, Chest Tightness. 00:49 The patient has shortness of breath at rest. Onset: The symptoms/episode began/occurred jr8 gradually, 1 day(s) ago. Duration: The symptoms are continuous. The patient's shortness of breath has no apparent modifying factors. Associated signs and symptoms: Pertinent positives: lower extremity swelling . Severity of symptoms: At their worst the symptoms were mild in the emergency department the symptoms are unchanged. The patient has not experienced similar symptoms in the past. The patient has not recently seen a physician. History of cirrhosis of liver. Stated that she is on antacid and Lactulose daily. Otherwise no other meds and has been doing ok. Stated that she has noticed increase in lower extremity edema. [place] short of breath yesterday and today. Has had mild chest tightness . Historical: - Allergies: 04/24 23:53 Morphine (Anaphylaxis); aa1 - Home Meds: 23:53 Lactulose Oral [Active]; aa1 - PMHx: 23:53 Anemia; Cirrhosis; fatty liver; Pancreatitis; varices; aa1 - PSHx: 23:53 EGD; Cholecystectomy; Appendectomy; aa1 - Immunization history:: Flu vaccine is not up to date. - Social history:: Smoking status: Patient/guardian denies using tobacco. - Ebola Screening: : Patient denies exposure to infectious person Patient denies travel to an Ebola-affected area in the 21 days before illness onset. ROS: 04/25 00:49 Eyes: Negative for injury, pain, redness, and discharge, ENT: Negative for injury, jr8 pain, and discharge, Neck: Negative for injury, pain, and swelling, Abdomen/GI: Negative for abdominal pain, nausea, vomiting, diarrhea, and constipation, Back: Negative for injury and pain, MS/Extremity: Negative for injury and deformity, Skin: Negative for injury, rash, and discoloration, Neuro: Negative for headache, weakness, numbness, tingling, and seizure. Cardiovascular: Positive for chest pain, edema, Negative for orthopnea. Respiratory: Positive for dyspnea on exertion, shortness of breath. Exam: 00:49 Eyes: Pupils equal round and reactive to light, extra-ocular motions intact. Lids and jr8 lashes normal. Conjunctiva and sclera are non-icteric and not injected. Cornea within normal limits. Periorbital areas with no swelling, redness, or edema. ENT: Nares patent. No nasal discharge, no septal abnormalities noted. Tympanic membranes are normal and external auditory canals are clear. Oropharynx with no redness, swelling, or masses, exudates, or evidence of obstruction, uvula midline. Mucous membranes moist. Neck: Trachea midline, no thyromegaly or masses palpated, and no cervical lymphadenopathy. Supple, full range of motion without nuchal rigidity, or vertebral point tenderness. No Meningismus. Respiratory: Lungs have equal breath sounds bilaterally, clear to auscultation and percussion. No rales, rhonchi or wheezes noted. No increased work of breathing, no retractions or nasal flaring. Abdomen/GI: Soft, non-tender, with normal bowel sounds. No distension or tympany. No guarding or rebound. No evidence of tenderness throughout. Back: No spinal tenderness. No costovertebral tenderness. Full range of motion. Skin: Warm, dry with normal turgor. Normal color with no rashes, no lesions, and no evidence of cellulitis. MS/ Extremity: Pulses equal, no cyanosis. Neurovascular intact. Full, normal range of motion. Neuro: Awake and alert, GCS 15, oriented to person, place, time, and situation. Cranial nerves II-XII grossly intact. Motor strength 5/5 in all extremities. Sensory grossly intact. Cerebellar exam normal. Normal gait. 00:49 Cardiovascular: Rate: normal, Rhythm: regular, Pulses: Pulses are 2+ in bilateral radial, brachial, femoral, popliteal, posterior tibial and and dorsalis pedis arteries.. Heart sounds: murmur, systolic, grade 3 over 6, S1, normal, S2, normal, Edema: 2+ edema to level of left midcalf, left ankle, left foot, right midcalf, right ankle and right foot. Vital Signs: 04/24 23:30 BP 119 / 52; Pulse 84; Resp 20; Temp 98.3; Pulse Ox 100% on R/A; Weight 113.4 kg; aa1 Height 5 ft. 3 in. (160.02 cm); Pain 0/10; 04/25 00:30 BP 110 / 47; Pulse 81; Resp 20; Pulse Ox 98% on R/A; aa1 01:30 BP 127 / 58; Pulse 82; Resp 22; Pulse Ox 100% on R/A; Pain 3/10; aa1 04/24 23:30 Body Mass Index 44.29 (113.40 kg, 160.02 cm) aa1 MDM: 04/24 23:38 Patient medically screened. 8 04/25 02:05 Data reviewed: vital signs, nurses notes, lab test result(s), EKG, radiologic studies, jr8 plain films. Data interpreted: Pulse oximetry: on room air is 100 %. Interpretation: normal. Counseling: I had a detailed discussion with the patient and/or guardian regarding: the historical points, exam findings, and any diagnostic results supporting the discharge/admit diagnosis, lab results, radiology results, the need for outpatient follow up, Hematology/Oncology. ED course: Long discussion with patient that she has had two blood draws in past couple of weeks. Both showing abnormally low WBC, H/H, and PLT counts. Patient has iron deficiency anemia and liver disease but now with substantially low WBC count along with lower than normal PLT and H/H. Rises concern for aplastic anemia. That this can cause shortness of breath and chest tightness amongst other symptoms. Recommended f/u with Dr. Branch again. Patient agrees and good with plan. Will f/u with Dr. Branch for next available appointment. Fall precautions given as well since PLT is low. 04/24 23:39 Order name: Basic Metabolic Panel; Complete Time: 04/24 23:39 Order name: CBC with Diff; Complete Time: 02:12 04/24 23:39 Order name: LFT's; Complete Time: 04/24 23:39 Order name: Magnesium; Complete Time: 04/24 23:39 Order name: NT PRO-BNP; Complete Time: 04/24 23:39 Order name: PT-INR; Complete Time: 04/24 23:39 Order name: Troponin (emerg Dept Use Only); Complete Time: :04/24 23:39 Order name: XRAY Chest (1 view) 04/24 23:39 Order name: EKG; Complete Time: 23:40 04/25 00:52 Order name: CBC Smear Scan; Complete Time: 02:12 EDMS 04/25 01:24 Order name: TS 04/24 23:39 Order name: Cardiac monitoring; Complete Time: 23:48 04/24 23:39 Order name: EKG - Nurse/Tech; Complete Time: 23:48 04/24 23:39 Order name: IV Saline Lock; Complete Time: :04/24 23:39 Order name: Labs collected and sent; Complete Time: :04/24 23:39 Order name: O2 Per Protocol; Complete Time: 23:48 04/24 23:39 Order name: O2 Sat Monitoring; Complete Time: 23:48 [facility] Administered Medications: 00:50 Drug: Zofran 4 mg Route: IVP; Site: left antecubital; aa1 01:55 Follow up: Response: No adverse reaction; Nausea unchanged aa1 00:50 Drug: Furosemide 60 mg Route: IVP; Site: left antecubital; aa1 01:50 Follow up: Urine output 1500 ml; Response: No adverse reaction; Marked relief of aa1 symptoms 01:58 Drug: Phenergan 12.5 mg Route: IVP; Site: left antecubital; aa1 02:23 Follow up: Response: No adverse reaction; Nausea is decreased aa1 Disposition: 05:45 Co-signature as Attending Physician, Jozef Youssef MD I agree with the assessment and tw4 plan of care. Disposition: 04/25/19 02:10 Discharged to Home. Impression: Shortness of breath, Nausea, Aplastic anemia, unspecified. - Condition is Stable. - Discharge Instructions: Blood Transfusion, Adult, Nausea, Adult, Shortness of Breath, Aplastic Anemia. - Prescriptions for Lactulose 10 gram/15 mL Oral Solution - take 30 milliliter by ORAL route once daily; 300 milliliter. promethazine 25 mg Oral Tablet - take 1 tablet by ORAL route every 6 hours As needed; 20 tablet. - Medication Reconciliation Form, Thank You Letter, Antibiotic Education, Prescription Opioid Use form. - Follow up: Zoila Gautam MD; When: 1 - 2 days; Reason: Recheck today's complaints, Continuance of care, Re-evaluation by your physician. - Problem is new. - Symptoms have improved. Signatures: Dispatcher [employer] EDRhonda Dewitt RN RN aa1 Scott Eastman PA PA jr8 Jozef Youssef MD MD tw4 Corrections: (The following items were deleted from the chart) 02:24 02:10 04/25/2019 02:10 Discharged to Home. Impression: Shortness of breath; Nausea; aa1 Aplastic anemia, unspecified. Condition is Stable. Forms are Medication Reconciliation Form, Thank You Letter, Antibiotic Education, Prescription Opioid Use. Follow up: Zoila Mac; When: 1 - 2 days; Reason: Recheck today's complaints, Continuance of care, Re-evaluation by your physician. Problem is new. Symptoms have improved. jr8
[2019-04-25 02:43] VITALS: TEMP 98.3
[2019-04-25 02:44] VITALS: BP 127/58; O2SAT 100
--- NOTE | 2019-04-25 07:45 | EKG ---
Test Date: 2019-04-24 Test Time: 23:41:38 Instrumentation Instructor: CHEN MEASUREMENT RESULTS: Intervals: Rate: 86 ME: 146 QRSD: 102 QT: 410 QTc: 490 [place]: P: 47 ME: 146 QRS: 56 T: 35 INTERPRETIVE STATEMENTS: Normal sinus rhythm Prolonged QT Abnormal ECG Compared to ECG 04/13/2019 06:31:28 Prolonged QT interval now present Electronically Signed On 04-25-19 07:44:13 DATA WAREHOUSE CONSULTANT by Fabrizio Joe
--- NOTE | 2019-04-25 08:40 | RAD REPORT ---
EXAM DESCRIPTION: RAD - Chest Single View - 04/25/2019 12:03 am CLINICAL HISTORY: DYSPNEA Chest pain. COMPARISON: Chest Single View dated 04/13/2019; Chest Single View dated 01/13/2019; Chest Single View d ated 12/31/2018; Chest Single View dated 09/30/2018 FINDINGS: Portable technique limits examination quality. Mild interstitial pulmonary edema is seen. The heart is mildly enlarged in size. No displaced fractur es. IMPRESSION: Mild CHF versus volume overload pattern.
== END 2019-04-25 02:24 | disposition home or self-care (01) ==
LOC: ER 23:22
DX: R06.02 Shortness of breath (principal); R11.0 Nausea; D61.9 Aplastic anemia, unspecified; Z88.6 Allergy status to analgesic agent
CPT/HCPCS: 93005; 85025; 80048; 36415; 86900; 83735; 86850; 85610; 86901; 80076; 84484; 83880; 71045; 96375; 96374; 99284; J1940 ×2; J2550; J2405

== ENCOUNTER 2019-05-31 14:25 | Emergency (ER) | payer OTHER ==
--- OUTSIDE RECORDS SUMMARY | 2019-05-31 14:28 | XMS REPORT ---
:1960 [facility] Address [address] [place] [address] Care Team Providers Name Role Phone AVI [...] ID: VIEW, NON DEPT exam:->SOBShould this be [phone] CLINICAL performed at the HISTORY: SOB TECHNIQUE: bedside?->Yes 1 view of the chest. COMPARISON: None IMPRESSION: There is pulmonary vascular congestion with prominent lung markings bilaterally. Subpulmonic pleural effusions cannot be excluded. The cardiomediastinal silhouette is magnified by technique. Signed: Franky Hoyt MDReport Verified Date/Time: 10/03/2018 07:50:47 Reading Location: [facility] Radiology Reading Room ESIUM 2018-10-03 07:37:00 Test Item Value Reference Range Comments MAGNESIUM (BEAKER) (test bini=105) 1.6 mg/dL 1.6-2.6 BASIC METABOLIC [id number] 07:37:00 Test Item Value Reference Range Comments SODIUM (BEAKER) (test 138 meq/L 136-145 bcnz=521) POTASSIUM (BEAKER) (test 4.0 meq/L 3.5-5.1 fpmk=004) CHLORIDE (BEAKER) (test 107 meq/L 98-107 vmvv=757) CO2 (BEAKER) (test 25 meq/L 22-29 ubvk=504) BLOOD UREA NITROGEN 10 mg/dL 7-21 (BEAKER) (test mael=439) CREATININE (BEAKER) (test 0.65 mg/dL 0.57-1.25 ajsu=239) GLUCOSE RANDOM (BEAKER) 99 mg/dL 70-105 (test xxts=486) CALCIUM (BEAKER) (test 8.2 mg/dL 8.4-10.2 mncz=529) EGFR (BEAKER) (test 94 mL/min/1.73 sq m ESTIMATED GFR IS NOT dzhq=6274) ACCURATE CREATININE CLEARANCE IN PREDICTING GLOMERULAR FILTRATION RATE. ESTIMATED GFR IS NOT APPLICABLE FOR DIALYSIS PATIENTS. Specimen slightly ictericHEPATIC FUNCTION [id number] 07:37:00 Test Item Value Reference Range Comments TOTAL PROTEIN (BEAKER) (test emvf=650) 5.9 gm/dL 6.0-8.3 ALBUMIN (BEAKER) (test hpgr=0705) 3.1 g/dL 3.5-5.0 BILIRUBIN TOTAL (BEAKER) (test ppey=940) 2.0 mg/dL 0.2-1.2 BILIRUBIN DIRECT (BEAKER) (test qgol=061) 1.0 mg/dL 0.1-0.5 ALKALINE PHOSPHATASE (BEAKER) (test uzrl=151) 123 U/L 40-150 AST (SGOT) (BEAKER) (test kwcf=212) 45 U/L 5-34 ALT (SGPT) (BEAKER) (test fooy=562) 35 U/L 6-55 Specimen slightly ictericPROTHROMBIN [id number] 06:25:00 Test Item Value Reference Range Comments PROTIME (BEAKER) (test uhlu=410) 15.2 seconds 11.9-14.2 INR (BEAKER) (test yzlc=338) 1.3 <=5.9 Effective 09/06/2018: PT Reference Range ChangeNew: 11.9-14.2 Previous: 11.7- 14.7RECOMMENDED COUMADIN/WARFARIN INR THERAPY RANGESSTANDARD DOSE: 2.0-3.0 Includes: PROPHYLAXIS for venous thrombosis, systemic embolization; TREATMENT for venous thrombosis and/or pulmonary embolus.HIGH RISK: Target INR is2.5-3.5 for patients wiht mechanical heart valves.CBC W/PLT COUNT & AUTO [id number] 06:16:00 Test Item Value Reference Range Comments WHITE BLOOD CELL COUNT (BEAKER) (test ffxu=214) 2.4 K/ L 3.5-10.5 RED BLOOD CELL COUNT (BEAKER) (test yopx=705) 3.26 M/ L 3.93-5.22 HEMOGLOBIN (BEAKER) (test mhbc=926) 9.6 GM/DL 11.2-15.7 HEMATOCRIT (BEAKER) (test ffky=568) 30.8 % 34.1-44.9 MEAN CORPUSCULAR VOLUME (BEAKER) (test bhkt=577) 94.5 fL 79.4-94.8 MEAN CORPUSCULAR HEMOGLOBIN (BEAKER) (test 29.4 pg 25.6-32.2 nxht=544) MEAN CORPUSCULAR HEMOGLOBIN CONC (BEAKER) (test 31.2 GM/DL 32.2-35.5 mnbf=996) RED CELL DISTRIBUTION WIDTH (BEAKER) (test 15.2 % 11.7-14.4 vlmr=481) PLATELET COUNT (BEAKER) (test szls=897) 38 K/CU MM 150-450 MEAN PLATELET VOLUME (BEAKER) (test kzoc=797) 10.3 fL 9.4-12.3 NUCLEATED RED BLOOD CELLS (BEAKER) (test 0 /100 WBC 0-0 jfad=481) NEUTROPHILS RELATIVE PERCENT (BEAKER) (test 57 % uukh=992) LYMPHOCYTES RELATIVE PERCENT (BEAKER) (test 26 % dlcu=594) MONOCYTES RELATIVE PERCENT (BEAKER) (test 11 % ldni=690) EOSINOPHILS RELATIVE PERCENT (BEAKER) (test 6 % jtra=176) BASOPHILS RELATIVE PERCENT (BEAKER) (test 0 % goxk=270) NEUTROPHILS ABSOLUTE COUNT (BEAKER) (test 1.35 K/ L 1.56-6.13 lkax=023) LYMPHOCYTES ABSOLUTE COUNT (BEAKER) (test 0.61 K/ L 1.18-3.74 ewgt=618) MONOCYTES ABSOLUTE COUNT (BEAKER) (test svpx=498) 0.26 K/ L 0.24-0.36 EOSINOPHILS ABSOLUTE COUNT (BEAKER) (test 0.15 K/ L 0.04-0.36 ezjp=977) BASOPHILS ABSOLUTE COUNT (BEAKER) (test hhfc=284) 0.01 K/ L 0.01-0.08 IMMATURE GRANULOCYTES-RELATIVE PERCENT (BEAKER) 0 % 0-1 (test akia=5034) (CELLAVISION MANUAL DIFF)2018-10-02 09:41:00 Test Item Value Reference Range Comments NEUTROPHILS - REL (CELLAVISION)(BEAKER) (test 70 % zams=8023) LYMPHOCYTES - REL (CELLAVISION)(BEAKER) (test 21 % ugfp=9940) MONOCYTES - REL (CELLAVISION)(BEAKER) (test 9 % cvgh=3830) NEUTROPHILS - ABS (CELLAVISION)(BEAKER) (test 1.40 K/ul 1.56-6.13 xvdv=6271) LYMPHOCYTES - ABS (CELLAVISION)(BEAKER) (test 0.42 K/ul 1.18-3.74 hfxt=1027) MONOCYTES - ABS (CELLAVISION)(BEAKER) (test 0.18 K/uL 0.24-0.36 xmhi=3390) TOTAL COUNTED (BEAKER) (test krdy=9510) 100 RBC MORPHOLOGY (BEAKER) (test pibc=419) Normal WBC MORPHOLOGY (BEAKER) (test ibyi=634) Normal PLT MORPHOLOGY (BEAKER) (test uczf=961) Normal ARTIFACT (CELLAVISION)(BEAKER) (test ymkz=3786) Present PLATELET CONCENTRATION (CELLAVISION)(BEAKER) (test Decreased iwlr=8483) Received comment: User comments: Slide comments:[id number] 05:58:00 Test Item Value Reference Range Comments MAGNESIUM (BEAKER) (test gxir=703) 1.6 mg/dL 1.6-2.6 BASIC METABOLIC [id number] 05:58:00 Test Item Value Reference Range Comments SODIUM (BEAKER) (test 138 meq/L 136-145 rkfw=131) POTASSIUM (BEAKER) (test 4.0 meq/L 3.5-5.1 rnsl=230) CHLORIDE (BEAKER) (test 107 meq/L 98-107 fyfx=428) CO2 (BEAKER) (test 26 meq/L 22-29 jzst=875) BLOOD UREA NITROGEN 12 mg/dL 7-21 (BEAKER) (test koyn=369) CREATININE (BEAKER) (test 0.64 mg/dL 0.57-1.25 pmzy=758) GLUCOSE RANDOM (BEAKER) 107 mg/dL 70-105 (test ldpz=644) CALCIUM (BEAKER) (test 8.0 mg/dL 8.4-10.2 vrvb=292) EGFR (BEAKER) (test 96 mL/min/1.73 sq m ESTIMATED GFR IS NOT vmuv=3785) ACCURATE CREATININE CLEARANCE IN PREDICTING GLOMERULAR FILTRATION RATE. ESTIMATED GFR IS NOT APPLICABLE FOR DIALYSIS PATIENTS. Specimen slightly ictericHEPATIC FUNCTION [id number] 05:58:00 Test Item Value Reference Range Comments TOTAL PROTEIN (BEAKER) (test zzwd=278) 5.8 gm/dL 6.0-8.3 ALBUMIN (BEAKER) (test uqiy=5721) 3.0 g/dL 3.5-5.0 BILIRUBIN TOTAL (BEAKER) (test zpil=959) 2.2 mg/dL 0.2-1.2 BILIRUBIN DIRECT (BEAKER) (test ncmb=125) 1.1 mg/dL 0.1-0.5 ALKALINE PHOSPHATASE (BEAKER) (test wojg=144) 125 U/L 40-150 AST (SGOT) (BEAKER) (test fdif=385) 49 U/L 5-34 ALT (SGPT) (BEAKER) (test lqxh=492) 39 U/L 6-55 Specimen slightly ictericPROTHROMBIN [id number] 05:26:00 Test Item Value Reference Range Comments PROTIME (BEAKER) (test ovdc=984) 15.3 seconds 11.9-14.2 INR (BEAKER) (test quui=212) 1.3 <=5.9 Effective 09/06/2018: PT Reference Range ChangeNew: 11.9-14.2 Previous: 11.7- 14.7RECOMMENDED COUMADIN/WARFARIN INR THERAPY RANGESSTANDARD DOSE: 2.0-3.0 Includes: PROPHYLAXIS for venous thrombosis, systemic embolization; TREATMENT for venous thrombosis and/or pulmonary embolus.HIGH RISK: Target INR is2.5-3.5 for patients wiht mechanical heart valves.CBC W/PLT COUNT & AUTO [id number] 05:20:00 Test Item Value Reference Range Comments WHITE BLOOD CELL COUNT (BEAKER) (test ioof=102) 2.0 K/ L 3.5-10.5 RED BLOOD CELL COUNT (BEAKER) (test rqdx=060) 3.20 M/ L 3.93-5.22 HEMOGLOBIN (BEAKER) (test sxka=629) 9.5 GM/DL 11.2-15.7 HEMATOCRIT (BEAKER) (test mqyq=439) 30.5 % 34.1-44.9 MEAN CORPUSCULAR VOLUME (BEAKER) (test wqre=557) 95.3 fL 79.4-94.8 MEAN CORPUSCULAR HEMOGLOBIN (BEAKER) (test 29.7 pg 25.6-32.2 yfkz=540) MEAN CORPUSCULAR HEMOGLOBIN CONC (BEAKER) (test 31.1 GM/DL 32.2-35.5 bhcn=285) RED CELL DISTRIBUTION WIDTH (BEAKER) (test 15.2 % 11.7-14.4 vefq=733) PLATELET COUNT (BEAKER) (test wxmo=186) 39 K/CU MM 150-450 MEAN PLATELET VOLUME (BEAKER) (test crrw=837) 10.9 fL 9.4-12.3 NUCLEATED RED BLOOD CELLS (BEAKER) (test 0 /100 WBC 0-0 hrmp=148) VITAMIN [id number] 06:57:00 Test Item Value Reference Range Comments VITAMIN B12 (BEAKER) (test snoz=097) 178 pg/mL 213-816 [id number] 06:57:00 Test Item Value Reference Range Comments FERRITIN (BEAKER) (test gsnl=308) 21 ng/mL 5-275 FOLATE, [id number] 06:57:00 Test Item Value Reference Range Comments FOLATE (BEAKER) (test wtdu=312) 11.3 ng/mL >=7.0 IRON, TIBC, % SAT. (WITHOUT FERRITIN)2018-10-01 05:59:00 Test Item Value Reference Range Comments IRON (BEAKER) (test qbql=904) 81.0 ug/dL 40.0-160.0 TOTAL IRON BINDING CAPACITY (BEAKER) (test 291 ug/dL 250-450 rpvl=029) IRON % SATURATION (2) (BEAKER) (test bibu=1672) 28 % 20-55 [id number] 05:59:00 Test Item Value Reference Range Comments MAGNESIUM (BEAKER) (test fisu=507) 1.7 mg/dL 1.6-2.6 BASIC METABOLIC [id number] 05:59:00 Test Item Value Reference Range Comments SODIUM (BEAKER) (test 141 meq/L 136-145 kiso=669) POTASSIUM (BEAKER) (test 4.0 meq/L 3.5-5.1 upgp=884) CHLORIDE (BEAKER) (test 110 meq/L 98-107 gqak=886) CO2 (BEAKER) (test 26 meq/L 22-29 fcdx=106) BLOOD UREA NITROGEN 11 mg/dL 7-21 (BEAKER) (test gojd=440) CREATININE (BEAKER) (test 0.62 mg/dL 0.57-1.25 pjex=218) GLUCOSE RANDOM (BEAKER) 97 mg/dL 70-105 (test mhkf=571) CALCIUM (BEAKER) (test 8.4 mg/dL 8.4-10.2 kswa=325) EGFR (BEAKER) (test 99 mL/min/1.73 sq m ESTIMATED GFR IS NOT ncds=1138) ACCURATE CREATININE CLEARANCE IN PREDICTING GLOMERULAR FILTRATION RATE. ESTIMATED GFR IS NOT APPLICABLE FOR DIALYSIS PATIENTS. Specimen slightly ictericLIPID [id number] 05:59:00 Test Item Value Reference Range Comments TRIGLYCERIDES (BEAKER) (test avib=510) 64 mg/dL CHOLESTEROL (BEAKER) (test bsxs=239) 142 mg/dL HDL CHOLESTEROL (BEAKER) (test vten=384) 44 mg/dL LDL CHOLESTEROL CALCULATED (BEAKER) (test 85 mg/dL eebz=885) Triglyceride Reference Range: Low Risk <150 Borderline 150- 199 High Risk 200-499 Very High Risk >=500Cholesterol Reference Range: Low Risk <200 Borderline 200-239 High Risk > 240HDL Cholesterol Reference Range: Low Risk >=60 High Risk <40LDL Cholesterol Reference Range: Optimal <100 Near Optimal 100-129 Borderline 130-159 High 160-189 Very High >=190 Specimen slightly ictericHEPATIC FUNCTION [id number] 05:59: 00 Test Item Value Reference Range Comments TOTAL PROTEIN (BEAKER) (test yxya=916) 6.1 gm/dL 6.0-8.3 ALBUMIN (BEAKER) (test wkja=1674) 3.2 g/dL 3.5-5.0 BILIRUBIN TOTAL (BEAKER) (test gwwl=323) 2.5 mg/dL 0.2-1.2 BILIRUBIN DIRECT (BEAKER) (test jini=344) 1.2 mg/dL 0.1-0.5 ALKALINE PHOSPHATASE (BEAKER) (test unbm=479) 130 U/L 40-150 AST (SGOT) (BEAKER) (test dvpv=291) 47 U/L 5-34 ALT (SGPT) (BEAKER) (test ykjd=848) 41 U/L 6-55 Specimen slightly [id number] 05:59:00 Test Item Value Reference Range Comments LIPASE (BEAKER) (test pjzw=975) 35 U/L 8-78 Specimen slightly ictericPROTHROMBIN [id number] 05:58:00 Test Item Value Reference Range Comments PROTIME (BEAKER) (test tqwu=134) 15.9 seconds 11.9-14.2 INR (BEAKER) (test lzpg=664) 1.3 <=5.9 Effective 09/06/2018: PT Reference Range ChangeNew: 11.9-14.2 Previous: 11.7- 14.7RECOMMENDED COUMADIN/WARFARIN INR THERAPY RANGESSTANDARD DOSE: 2.0-3.0 Includes: PROPHYLAXIS for venous thrombosis, systemic embolization; TREATMENT for venous thrombosis and/or pulmonary embolus.HIGH RISK: Target INR is2.5-3.5 for patients wiht mechanical heart valves.CBC W/PLT COUNT & AUTO [id number] 05:37:00 Test Item Value Reference Range Comments WHITE BLOOD CELL COUNT (BEAKER) (test ccgf=185) 2.4 K/ L 3.5-10.5 RED BLOOD CELL COUNT (BEAKER) (test ocif=552) 3.39 M/ L 3.93-5.22 HEMOGLOBIN (BEAKER) (test jwie=183) 9.9 GM/DL 11.2-15.7 HEMATOCRIT (BEAKER) (test byjt=932) 31.8 % 34.1-44.9 MEAN CORPUSCULAR VOLUME (BEAKER) (test jros=565) 93.8 fL 79.4-94.8 MEAN CORPUSCULAR HEMOGLOBIN (BEAKER) (test 29.2 pg 25.6-32.2 nawa=666) MEAN CORPUSCULAR HEMOGLOBIN CONC (BEAKER) (test 31.1 GM/DL 32.2-35.5 bqag=225) RED CELL DISTRIBUTION WIDTH (BEAKER) (test 15.4 % 11.7-14.4 mptr=152) PLATELET COUNT (BEAKER) (test dilm=097) 38 K/CU MM 150-450 MEAN PLATELET VOLUME (BEAKER) (test mlqq=500) 10.2 fL 9.4-12.3 NUCLEATED RED BLOOD CELLS (BEAKER) (test 0 /100 WBC 0-0 nrvm=931) NEUTROPHILS RELATIVE PERCENT (BEAKER) (test 57 % hfwi=710) LYMPHOCYTES RELATIVE PERCENT (BEAKER) (test 27 % jiji=202) MONOCYTES RELATIVE PERCENT (BEAKER) (test 10 % kwgg=735) EOSINOPHILS RELATIVE PERCENT (BEAKER) (test 5 % gdaz=779) BASOPHILS RELATIVE PERCENT (BEAKER) (test 1 % qzha=692) NEUTROPHILS ABSOLUTE COUNT (BEAKER) (test 1.38 K/ L 1.56-6.13 cngl=390) LYMPHOCYTES ABSOLUTE COUNT (BEAKER) (test 0.65 K/ L 1.18-3.74 ocfr=445) MONOCYTES ABSOLUTE COUNT (BEAKER) (test ucvv=901) 0.24 K/ L 0.24-0.36 EOSINOPHILS ABSOLUTE COUNT (BEAKER) (test 0.12 K/ L 0.04-0.36 omof=316) BASOPHILS ABSOLUTE COUNT (BEAKER) (test ksrd=494) 0.02 K/ L 0.01-0.08 IMMATURE GRANULOCYTES-RELATIVE PERCENT (BEAKER) 0 % 0-1 (test fouj=1836) POCT-HEMOGLOBIN [id number] 06:12:00 Test Item Value Reference Range Comments POC-HEMOGLOBIN METER (BEAKER) 8.6 g/dL 12.0-15.0 TESTED AT [facility] [address] (test [id number]=[id number]) [facility] [id number]
[2019-05-31] MEDS ORDERED: FENTANYL CITR 100 MCG/2 ML ONE (15:23)
[2019-05-31] MEDS ORDERED: ONDANSETRON 4 MG/2 ML VIAL ONE (15:23)
[2019-05-31 15:33] LABS: Absolute Lymphocytes (CBC) 0.7 K/uL (0.7-4.9); Basophils % 0.3 % (0-1.3); Hematocrit 30.6 % (36.0-45.0); MPV 8.2 fL (7.6-11.3); RBC Red Blood Cell Count 3.81 M/uL (3.86-4.86)
[2019-05-31 15:45] LABS: ALT/SGPT 50 U/L (12-78); AST/SGOT 49 U/L (15-37); Albumin 3.3 g/dL (3.4-5.0); Alkaline Phosphatase 145 U/L (45-117); BUN Blood Urea Nitrogen 10 mg/dL (7-18); Bicarbonate 25 mmol/L (21-32); Bilirubin Direct 0.6 mg/dL (0-0.2); Bilirubin Total 1.8 mg/dL (0.2-1.0); Glucose Level 87 mg/dL (74-106); Lipase 289 U/L (73-393); Protein, Total 6.9 g/dL (6.4-8.2); Sodium Level 140 mmol/L (136-145)
--- NOTE | 2019-05-31 16:25 | RAD REPORT ---
EXAM DESCRIPTION: CTAbdomen Pelvis W Contrast - 05/31/2019 4:16 pm CLINICAL HISTORY: Abdominal pain. Rectal bleeding;Abd pain COMPARISON: Abdomen Pelvis W Contrast dated 04/13/2019; Abdomen Pelvis W Contrast dated 09/30/2018; Abdomen Pelvis W Contrast dated 05/29/2018; Abdomen Pelvis W Contrast dated 10/27/2017 TECHNIQUE: Biphasic CT imaging of the abdomen and pelvis was performed with 100 ml non-ionic IV cont rast. All CT scans are performed using dose optimization technique as appropriate and may include automated exposure control or mA/KV adjustment according to patient size. FINDINGS: The lung bases are clear. Mild liver cirrhosis is seen with nodular liver contour present. Cholecystectomy clips are evident. M oderate splenomegaly is seen. The pancreas, adrenal glands and kidneys are within normal limits. No bowel obstruction, free air, free fluid or abscess. Small fat containing umbilical hernia noted. T he appendix is not identified as a discrete structure, however, no secondary findings of appendicitis are identified. No evidence of significant lymphadenopathy. No suspicious bony findings. IMPRESSION: Liver cirrhosis with splenomegaly is noted. Cholecystectomy.
--- NOTE | 2019-05-31 18:07 | ER ---
Nurse's Notes [facility] Name: Zenaida Goss Age: 59 yrs Sex: Female : 1960 Arrival Date: 05/31/2019 Time: 14:28 Bed 24 Private MD: Madhu Albarado R Diagnosis: Rectal Bleeding Presentation: 05/31 14:32 Presenting complaint: Patient states: i have an appt to get iron infusion but i have tw2 been having a lot of rectal bleeding, it started about 1130 today i had a bm and then all of a sudden lots of blood, i drove home from [place] and was sleepy, my platelets are low and i cant afford to loose any more blood. Transition of care: patient was not received from another setting of care. Onset of symptoms was May 31, 2019. Risk Assessment: Do you want to hurt yourself or someone else? Patient reports no desire to harm self or others. Initial Sepsis Screen: Does the patient meet any 2 criteria? No. Patient's initial sepsis screen is negative. Does the patient have a suspected source of infection? No. Patient's initial sepsis screen is negative. Care prior to arrival: None. 14:32 Method Of Arrival: Ambulatory tw2 14:32 Acuity: TANK 3 tw2 Triage Assessment: 14:34 General: Appears in no apparent distress. obese, well groomed, Behavior is calm, tw2 cooperative, appropriate for age. Pain: Complains of pain in abdomen. GI: Reports cramping, bloody stool, bright red blood since 1130 this morning after a bm. Historical: - Allergies: 14:32 Morphine (Anaphylaxis); tw2 - Home Meds: 14:32 Lactulose Oral [Active]; tw2 - PMHx: 14:32 Anemia; Cirrhosis; fatty liver; Pancreatitis; varices; tw2 - Immunization history:: Adult Immunizations. - Coronavirus screen:: The patient has NOT traveled to [place] in the past 14 days. - Social history:: Smoking status: . - Ebola Screening: : Patient denies travel to an Ebola-affected area in the 21 days before illness onset. Screenin:25 Abuse screen: Denies threats or abuse. Denies injuries from another. Nutritional mg2 screening: No deficits noted. Tuberculosis screening: No symptoms or risk factors identified. Fall Risk IV access (20 points). Assessment: 16:30 General: Appears in no apparent distress. comfortable, Behavior is calm, cooperative. mg2 Pain: Complains of pain in abdomen. Neuro: Level of Consciousness is awake, alert, obeys commands, Oriented to person, place, time, situation. Cardiovascular: Capillary refill < 3 seconds Patient's skin is warm and dry. Respiratory: Airway is patent Respiratory effort is even, unlabored, Respiratory pattern is regular, symmetrical. GI: Reports lower abdominal pain, upper abdominal pain, rectal bleeding, nausea. : No signs and/or symptoms were reported regarding the genitourinary system. EENT: No signs and/or symptoms were reported regarding the EENT system. Derm: Skin is intact, is healthy with good turgor, Skin is pink, warm \T\ dry. normal. Musculoskeletal: Circulation, motion, and sensation intact. Capillary refill < 3 seconds. 17:30 Reassessment: Patient appears in no apparent distress at this time. Patient and/or mg2 family updated on plan of care and expected duration. Pain level reassessed. Patient is alert, oriented x 3, equal unlabored respirations, skin warm/dry/pink. 18:33 Reassessment: Patient appears in no apparent distress at this time. mg2 Vital Signs: 14:34 BP 102 / 51; Pulse 83; Resp 17; Temp 97.6(TE); Pulse Ox 100% on R/A; Weight 113.4 kg tw2 (R); Height 5 ft. 3 in. (160.02 cm); Pain 7/10; 15:35 BP 132 / 65; Pulse 74; Resp 18; Pulse Ox 100% on R/A; mg2 16:30 BP 128 / 63; Pulse 77; Resp 18; Pulse Ox 100% on R/A; mg2 17:30 BP 122 / 78; Pulse 80; Resp 18; Pulse Ox 100% on R/A; mg2 18:33 BP 130 / 78; Pulse 80; Resp 18; Temp 98; Pulse Ox 100% on R/A; mg2 14:34 Body Mass Index 44.29 (113.40 kg, 160.02 cm) tw2 ED Course: 14:28 Patient arrived in ED. rg4 14:28 Madhu Albarado MD is Private Physician. rg4 14:31 Lenny Enrique MD is Attending Physician. kdr 14:34 Triage completed. tw2 14:34 Arm band placed on. tw2 14:57 Jovanny Cantor, RN is Primary Nurse. mg2 15:12 Served as a vice president for instruction during rectal exam. Inserted saline lock: 22 gauge in left mg2 antecubital area, using aseptic technique. Blood collected. 16:17 CT Abd/Pelvis - IV Contrast Only In Process Unspecified. EDMS 17:26 Patient has correct armband on for positive identification. Pulse ox on. NIBP on. Door mg2 closed. Warm blanket given. 18:05 Madhu Albarado MD is Referral Physician. kdr 18:34 IV discontinued, intact, bleeding controlled, No redness/swelling at site. Pressure mg2 dressing applied. Administered Medications: 15:25 Drug: fentaNYL (PF) 25 mcg Route: IVP; Site: left antecubital; mg2 17:03 Follow up: Response: No adverse reaction mg2 15:25 Drug: Zofran 4 mg Route: IVP; Site: left antecubital; mg2 17:02 Follow up: Response: No adverse reaction mg2 Outcome: 18:06 Discharge ordered by . kdr 18:34 Discharged to home ambulatory, with family. mg2 18:34 Condition: stable 18:34 Discharge instructions given to patient, Instructed on discharge instructions, follow up and referral plans. Demonstrated understanding of instructions, follow-up care. 18:34 Patient left the ED. mg2 Signatures: Dispatcher [employer] EDMS Lenny Enrique MD MD kdr Inés Riojas RN RN tw2 Di Gao rg4 Jovanny Cantor, ERIC RN mg2
--- NOTE | 2019-05-31 18:07 | EDPHYS ---
Physician Documentation [facility] Name: Zenaida Goss Age: 59 yrs Sex: Female : 1960 Arrival Date: 05/31/2019 Time: 14:28 Bed 24 Private MD: Madhu Albarado R ED Physician Lenny Enrique HPI: 05/31 16:11 This 59 yrs old Female presents to ER via Ambulatory with complaints of Rectal kdr Bleeding. 16:11 The patient presents to the emergency department with bleeding from the rectum/anus, kdr that is mild. Onset: The symptoms/episode began/occurred suddenly, just prior to arrival. Context: the patient The patient was sitting on the toilet to urinate when she had "a lot" of blood in the toilet. She has mild diffuse abdominal pain but does not appear toxic or in any acute distress. Modifying factors: The symptoms are alleviated by nothing, The symptoms are aggravated by nothing. Associate signs and symptoms: The patient has no apparent associated signs or symptoms, Pertinent positives: abdominal pain in the right upper quadrant and left upper quadrant. The patient has experienced similar episodes in the past, a few times. Historical: - Allergies: 14:32 Morphine (Anaphylaxis); tw2 - Home Meds: 14:32 Lactulose Oral [Active]; tw2 - PMHx: 14:32 Anemia; Cirrhosis; fatty liver; Pancreatitis; varices; tw2 - Immunization history:: Adult Immunizations. - Coronavirus screen:: The patient has NOT traveled to [place] in the past 14 days. - Social history:: Smoking status: . - Ebola Screening: : Patient denies travel to an Ebola-affected area in the 21 days before illness onset. ROS: 16:11 Constitutional: Negative for fever, chills, and weight loss, Eyes: Negative for injury, kdr pain, redness, and discharge, ENT: Negative for injury, pain, and discharge, Neck: Negative for injury, pain, and swelling, Cardiovascular: Negative for chest pain, palpitations, and edema, Respiratory: Negative for shortness of breath, cough, wheezing, and pleuritic chest pain, Back: Negative for injury and pain, : Negative for injury, bleeding, discharge, and swelling, MS/Extremity: Negative for injury and deformity, Skin: Negative for injury, rash, and discoloration, Neuro: Negative for headache, weakness, numbness, tingling, and seizure activity. Psych: Negative for depression, anxiety, suicide ideation, homicidal ideation, and hallucinations, Allergy/Immunology: Negative for hives, rash, and allergies, Endocrine: Negative for neck swelling, polydipsia, polyuria, polyphagia, and marked weight changes, Hematologic/Lymphatic: Negative for swollen nodes, abnormal bleeding, and unusual bruising. 16:11 Abdomen/GI: Positive for abdominal pain, diarrhea, rectal bleeding. Exam: 16:11 Constitutional: This is a well developed, well nourished patient who is awake, alert, kdr and in no acute distress. Head/Face: Normocephalic, atraumatic. Eyes: Pupils equal round and reactive to light, extra-ocular motions intact. Lids and lashes normal. Conjunctiva and sclera are non-icteric and not injected. Cornea within normal limits. Periorbital areas with no swelling, redness, or edema. Neck: Trachea midline, no thyromegaly or masses palpated, and no cervical lymphadenopathy. Supple, full range of motion without nuchal rigidity, or vertebral point tenderness. No Meningismus. Chest/axilla: Normal chest wall appearance and motion. Nontender with no deformity. No lesions are appreciated. Cardiovascular: Regular rate and rhythm with a normal S1 and S2. No gallops, murmurs, or rubs. Normal PMI, no JVD. No pulse deficits. Respiratory: Lungs have equal breath sounds bilaterally, clear to auscultation and percussion. No rales, rhonchi or wheezes noted. No increased work of breathing, no retractions or nasal flaring. Back: No spinal tenderness. No costovertebral tenderness. Full range of motion. Skin: Warm, dry with normal turgor. Normal color with no rashes, no lesions, and no evidence of cellulitis. MS/ Extremity: Pulses equal, no cyanosis. Neurovascular intact. Full, normal range of motion. Neuro: Awake and alert, GCS 15, oriented to person, place, time, and situation. Cranial nerves II-XII grossly intact. Motor strength 5/5 in all extremities. Sensory grossly intact. Cerebellar exam normal. Normal gait. Psych: Awake, alert, with orientation to person, place and time. Behavior, mood, and affect are within normal limits. 16:11 Abdomen/GI: Inspection: abdomen appears normal, Bowel sounds: normal, Palpation: soft, mild abdominal tenderness, in all quadrants, Rectal exam: rectal tone normal, Stool: brown, moreno, guaiac positive. Vital Signs: 14:34 BP 102 / 51; Pulse 83; Resp 17; Temp 97.6(TE); Pulse Ox 100% on R/A; Weight 113.4 kg tw2 (R); Height 5 ft. 3 in. (160.02 cm); Pain 7/10; 15:35 BP 132 / 65; Pulse 74; Resp 18; Pulse Ox 100% on R/A; mg2 16:30 BP 128 / 63; Pulse 77; Resp 18; Pulse Ox 100% on R/A; mg2 17:30 BP 122 / 78; Pulse 80; Resp 18; Pulse Ox 100% on R/A; mg2 18:33 BP 130 / 78; Pulse 80; Resp 18; Temp 98; Pulse Ox 100% on R/A; mg2 14:34 Body Mass Index 44.29 (113.40 kg, 160.02 cm) tw2 MDM: 16:11 Data reviewed: vital signs, nurses notes, lab test result(s), radiologic studies. kdr Counseling: I had a detailed discussion with the patient and/or guardian regarding: the historical points, exam findings, and any diagnostic results supporting the discharge/admit diagnosis, lab results, radiology results. 18:06 Patient medically screened. [facility] 05/31 14:32 Order name: Basic Metabolic Panel [facility] 05/31 14:32 Order name: CBC with Diff [facility] 05/31 14:32 Order name: Creatinine for Radiology [facility] 05/31 14:32 Order name: Hepatic Function [facility] 05/31 14:32 Order name: Lipase [facility] 05/31 14:32 Order name: Type And Screen; Complete Time: 16:06 [facility] 05/31 14:32 Order name: IV Saline Lock; Complete Time: 15:12 [facility] 05/31 14:32 Order name: Labs collected and sent; Complete Time: 15:12 [facility] 05/31 15:32 Order name: CT Abd/Pelvis - IV Contrast Only; Complete Time: 18:04 kdr Administered Medications: 15:25 Drug: fentaNYL (PF) 25 mcg Route: IVP; Site: left antecubital; mg2 17:03 Follow up: Response: No adverse reaction mg2 15:25 Drug: Zofran 4 mg Route: IVP; Site: left antecubital; mg2 17:02 Follow up: Response: No adverse reaction mg2 Disposition: 05/31/19 18:06 Discharged to Home. Impression: Rectal Bleeding. - Condition is Stable. - Discharge Instructions: Rectal Bleeding, [id number]. - Medication Reconciliation Form, Thank You Letter form. - Follow up: Madhu Albarado MD; When: 2 - 3 days; Reason: If symptoms return, Further diagnostic work-up, Recheck today's complaints, Continuance of care, Re-evaluation by your physician. - Problem is an acute exacerbation. - Symptoms are resolved. Signatures: Dispatcher [employer] EDMS Lenny Enrique MD MD kdr Inés Riojas RN RN tw2 Jovanny Cantor RN RN mg2 Corrections: (The following items were deleted from the chart) 18:34 18:06 05/31/2019 18:06 Discharged to Home. Impression: Rectal Bleeding. Condition is mg2 Stable. Forms are Medication Reconciliation Form, Thank You Letter, Antibiotic Education, Prescription Opioid Use. Follow up: Madhu Albarado; When: 2 - 3 days; Reason: If symptoms return, Further diagnostic work-up, Recheck today's complaints, Continuance of care, Re-evaluation by your physician. Problem is an acute exacerbation. Symptoms are resolved. kdr
[2019-05-31 20:02] VITALS: BP 102/51; TEMP 97.6; O2SAT 100
[2019-05-31 20:08] LABS: Anisocytosis 1+; Blood Morphology Comment NOTED (NOT SEEN); Platelet Estimate DECR
== END 2019-05-31 18:34 | disposition home or self-care (01) ==
LOC: ER 14:25
DX: K62.5 Hemorrhage of anus and rectum (principal); Z88.5 Allergy status to narcotic agent
CPT/HCPCS: 85025; 80048; 36415; 86900; 86850; 86901; 80076; 83690; 74177; 96375; 96374; 99284; J3010; J2405

== ENCOUNTER 2019-08-12 15:19 | Emergency (ER) | payer OTHER ==
--- OUTSIDE RECORDS SUMMARY | 2019-08-12 15:20 | XMS REPORT ---
:1960 Author Organization [facility] t Address [address] [place] [address] Dr. Clay [address] [place] [id number] Care Team Providers Name Role Phone AVI DAVEY Unavailable Unavailable JUSTINJUDIT MENDOZA Unavailable Unavailable Problems This patient has no known problems. Allergies, Adverse Reactions, Alerts This patient has no known allergies or adverse reactions. Medications This patient has no known medications. Results Test Description Test Time Test Comments Text Results Atomic Results Result Comments RAD, CHEST, 1 2018-10-03 07:50:00 Reason for FINAL REPORT PATIENT ID: VIEW, NON DEPT exam:->SOBShould this be [id number] CLIN ICAL performed at the HISTORY: SOB TECHNIQUE: bedside?->Yes 1 view of the chest. COMPARISON: None IMPRESSION: There is pulmonary vascular congestion with prominent lung markings bilaterally. Subpulmonic pleural effusions cannot be excluded. The cardiomediastinal silhouette is magnified by technique. Signed: Franky Hoyt MDReport Verified Date/Time: 10/03/2018 07:50:47 Reading Location: [facility] Radiology Reading Room ESIUM 2018-10-03 07:37:00 Test Item Value Reference Range Comments MAGNESIUM (BEAKER) (test code = 627) 1.6 mg/dL 1.6-2.6 BASIC METABOLIC [id number] 07:37:00 Test Item Value Reference Range Comments SODIUM (BEAKER) (test 138 meq/L 136-145 code = 381) POTASSIUM (BEAKER) (test 4.0 meq/L 3.5-5.1 code = 379) CHLORIDE (BEAKER) (test 107 meq/L 98-107 code = 382) CO2 (BEAKER) (test code = 25 meq/L 22-29 355) BLOOD UREA NITROGEN 10 mg/dL 7-21 (BEAKER) (test code = 354) CREATININE (BEAKER) (test 0.65 mg/dL 0.57-1.25 code = 358) GLUCOSE RANDOM (BEAKER) 99 mg/dL 70-105 (test code = 652) CALCIUM (BEAKER) (test 8.2 mg/dL 8.4-10.2 code = 697) EGFR (BEAKER) (test code 94 mL/min/1.73 sq m EST IMATED GFR IS NOT = 1092) ACCURATE CREA TININE CLEARANCE IN PRE DICTING GLOMERULAR FILTR ATION RATE. ESTIMATED GFR IS NOT APPLICABLE F OR DIALYSIS PATIENT S. Specimen slightly ictericHEPATIC FUNCTION [id number] 07:37:00 Test Item Value Reference Range Comments TOTAL PROTEIN (BEAKER) (test code = 770) 5.9 gm/dL 6.0-8.3 ALBUMIN (BEAKER) (test code = 1145) 3.1 g/dL 3.5-5.0 BILIRUBIN TOTAL (BEAKER) (test code = 377) 2.0 mg/dL 0.2-1 .2 BILIRUBIN DIRECT (BEAKER) (test code = 706) 1.0 mg/dL 0.1- 0.5 ALKALINE PHOSPHATASE (BEAKER) (test code = 346) 123 U/L 40-150 AST (SGOT) (BEAKER) (test code = 353) 45 U/L 5-34 ALT (SGPT) (BEAKER) (test code = 347) 35 U/L 6-55 Specimen slightly ictericPROTHROMBIN [id number] 06:25:00 Test Item Value Reference Range Comments PROTIME (BEAKER) (test code = 759) 15.2 seconds 11.9-14.2 INR (BEAKER) (test code = 370) 1.3 <=5.9 Effective 09/06/2018: PT Reference Range ChangeNew: 11.9-14.2 Previous: 11.7- 14.7RECOMMENDED COUMADIN/WARFARIN INR THERAPY RANGESSTANDARD DOSE: 2.0-3.0 Includes: PROPHYLAXIS for venous thrombosis, systemic embolization; TREATMENT for venous thrombosis and/or pulmonary embolus.HIGH RISK: Target INR is2.5-3.5 for patients wiht mechanical heart valves.CBC W/PLT COUNT & AUTO [id number] 06:16:00 Test Item Value Reference Range Comments WHITE BLOOD CELL COUNT (BEAKER) (test code = 775) 2.4 K/ L 3.5-10.5 RED BLOOD CELL COUNT (BEAKER) (test code = 761) 3.26 M/ L 3.93-5.22 HEMOGLOBIN (BEAKER) (test code = 410) 9.6 GM/DL 11.2-15.7 HEMATOCRIT (BEAKER) (test code = 411) 30.8 % 34.1-44.9 MEAN CORPUSCULAR VOLUME (BEAKER) (test code = 94.5 fL 79 .4-94.8 753) MEAN CORPUSCULAR HEMOGLOBIN (BEAKER) (test code = 29.4 pg 25.6-32.2 751) MEAN CORPUSCULAR HEMOGLOBIN CONC (BEAKER) (test 31.2 GM/DL 32.2-35.5 code = 752) RED CELL DISTRIBUTION WIDTH (BEAKER) (test code = 15.2 % 11.7-14.4 412) PLATELET COUNT (BEAKER) (test code = 756) 38 K/CU MM 150-45 0 MEAN PLATELET VOLUME (BEAKER) (test code = 754) 10.3 fL 9.4-12.3 NUCLEATED RED BLOOD CELLS (BEAKER) (test code = 0 /100 WBC 0-0 413) NEUTROPHILS RELATIVE PERCENT (BEAKER) (test code 57 % = 429) LYMPHOCYTES RELATIVE PERCENT (BEAKER) (test code 26 % = 430) MONOCYTES RELATIVE PERCENT (BEAKER) (test code = 11 % 431) EOSINOPHILS RELATIVE PERCENT (BEAKER) (test code 6 % = 432) BASOPHILS RELATIVE PERCENT (BEAKER) (test code = 0 % 437) NEUTROPHILS ABSOLUTE COUNT (BEAKER) (test code = 1.35 K/ L 1.56-6.13 670) LYMPHOCYTES ABSOLUTE COUNT (BEAKER) (test code = 0.61 K/ L 1.18-3.74 414) MONOCYTES ABSOLUTE COUNT (BEAKER) (test code = 0.26 K/ L 0 .24-0.36 415) EOSINOPHILS ABSOLUTE COUNT (BEAKER) (test code = 0.15 K/ L 0.04-0.36 416) BASOPHILS ABSOLUTE COUNT (BEAKER) (test code = 0.01 K/ L 0 .01-0.08 417) IMMATURE GRANULOCYTES-RELATIVE PERCENT (BEAKER) 0 % 0-1 (test code = 2801) (CELLAVISION MANUAL DIFF)2018-10-02 09:41:00 Test Item Value Reference Range Comments NEUTROPHILS - REL (CELLAVISION)(BEAKER) (test code 70 % = 2816) LYMPHOCYTES - REL (CELLAVISION)(BEAKER) (test code 21 % = 2817) MONOCYTES - REL (CELLAVISION)(BEAKER) (test code = 9 % 2818) NEUTROPHILS - ABS (CELLAVISION)(BEAKER) (test code 1.40 K/ul 1.56-6.13 = 2830) LYMPHOCYTES - ABS (CELLAVISION)(BEAKER) (test code 0.42 K/ul 1.18-3.74 = 2831) MONOCYTES - ABS (CELLAVISION)(BEAKER) (test code = 0.18 K/uL 0.24-0.36 2832) TOTAL COUNTED (BEAKER) (test code = 1351) 100 RBC MORPHOLOGY (BEAKER) (test code = 762) Normal WBC MORPHOLOGY (BEAKER) (test code = 487) Normal PLT MORPHOLOGY (BEAKER) (test code = 486) Normal ARTIFACT (CELLAVISION)(BEAKER) (test code = 3432) Present PLATELET CONCENTRATION (CELLAVISION)(BEAKER) (test Decreased code = 3438) Received comment: User comments: Slide comments:[id number] 05:58:00 Test Item Value Reference Range Comments MAGNESIUM (BEAKER) (test code = 627) 1.6 mg/dL 1.6-2.6 BASIC METABOLIC [id number] 05:58:00 Test Item Value Reference Range Comments SODIUM (BEAKER) (test 138 meq/L 136-145 code = 381) POTASSIUM (BEAKER) (test 4.0 meq/L 3.5-5.1 code = 379) CHLORIDE (BEAKER) (test 107 meq/L 98-107 code = 382) CO2 (BEAKER) (test code = 26 meq/L 22-29 355) BLOOD UREA NITROGEN 12 mg/dL 7-21 (BEAKER) (test code = 354) CREATININE (BEAKER) (test 0.64 mg/dL 0.57-1.25 code = 358) GLUCOSE RANDOM (BEAKER) 107 mg/dL 70-105 (test code = 652) CALCIUM (BEAKER) (test 8.0 mg/dL 8.4-10.2 code = 697) EGFR (BEAKER) (test code 96 mL/min/1.73 sq m EST IMATED GFR IS NOT = 1092) ACCURATE CREA TININE CLEARANCE IN PRE DICTING GLOMERULAR FILTR ATION RATE. ESTIMATED GFR IS NOT APPLICABLE F OR DIALYSIS PATIENT S. Specimen slightly ictericHEPATIC FUNCTION [id number] 05:58:00 Test Item Value Reference Range Comments TOTAL PROTEIN (BEAKER) (test code = 770) 5.8 gm/dL 6.0-8.3 ALBUMIN (BEAKER) (test code = 1145) 3.0 g/dL 3.5-5.0 BILIRUBIN TOTAL (BEAKER) (test code = 377) 2.2 mg/dL 0.2-1 .2 BILIRUBIN DIRECT (BEAKER) (test code = 706) 1.1 mg/dL 0.1- 0.5 ALKALINE PHOSPHATASE (BEAKER) (test code = 346) 125 U/L 40-150 AST (SGOT) (BEAKER) (test code = 353) 49 U/L 5-34 ALT (SGPT) (BEAKER) (test code = 347) 39 U/L 6-55 Specimen slightly ictericPROTHROMBIN [id number] 05:26:00 Test Item Value Reference Range Comments PROTIME (BEAKER) (test code = 759) 15.3 seconds 11.9-14.2 INR (BEAKER) (test code = 370) 1.3 <=5.9 Effective 09/06/2018: PT Reference Range ChangeNew: 11.9-14.2 Previous: 11.7- 14.7RECOMMENDED COUMADIN/WARFARIN INR THERAPY RANGESSTANDARD DOSE: 2.0-3.0 Includes: PROPHYLAXIS for venous thrombosis, systemic embolization; TREATMENT for venous thrombosis and/or pulmonary embolus.HIGH RISK: Target INR is2.5-3.5 for patients wiht mechanical heart valves.CBC W/PLT COUNT & AUTO [id number] 05:20:00 Test Item Value Reference Range Comments WHITE BLOOD CELL COUNT (BEAKER) (test code = 775) 2.0 K/ L 3.5-10.5 RED BLOOD CELL COUNT (BEAKER) (test code = 761) 3.20 M/ L 3.93-5.22 HEMOGLOBIN (BEAKER) (test code = 410) 9.5 GM/DL 11.2-15.7 HEMATOCRIT (BEAKER) (test code = 411) 30.5 % 34.1-44.9 MEAN CORPUSCULAR VOLUME (BEAKER) (test code = 95.3 fL 79 .4-94.8 753) MEAN CORPUSCULAR HEMOGLOBIN (BEAKER) (test code = 29.7 pg 25.6-32.2 751) MEAN CORPUSCULAR HEMOGLOBIN CONC (BEAKER) (test 31.1 GM/DL 32.2-35.5 code = 752) RED CELL DISTRIBUTION WIDTH (BEAKER) (test code = 15.2 % 11.7-14.4 412) PLATELET COUNT (BEAKER) (test code = 756) 39 K/CU MM 150-45 0 MEAN PLATELET VOLUME (BEAKER) (test code = 754) 10.9 fL 9.4-12.3 NUCLEATED RED BLOOD CELLS (BEAKER) (test code = 0 /100 WBC 0-0 413) VITAMIN [id number] 06:57:00 Test Item Value Reference Range Comments VITAMIN B12 (BEAKER) (test code = 774) 178 pg/mL 213-816 [id number] 06:57:00 Test Item Value Reference Range Comments FERRITIN (BEAKER) (test code = 361) 21 ng/mL 5-275 FOLATE, [id number] 06:57:00 Test Item Value Reference Range Comments FOLATE (BEAKER) (test code = 362) 11.3 ng/mL >=7.0 IRON, TIBC, % SAT. (WITHOUT FERRITIN)2018-10-01 05:59:00 Test Item Value Reference Range Comments IRON (BEAKER) (test code = 547) 81.0 ug/dL 40.0-160.0 TOTAL IRON BINDING CAPACITY (BEAKER) (test code = 291 ug/dL 250-450 769) IRON % SATURATION (2) (BEAKER) (test code = 2590) 28 % 20-55 [id number] 05:59:00 Test Item Value Reference Range Comments MAGNESIUM (BEAKER) (test code = 627) 1.7 mg/dL 1.6-2.6 BASIC METABOLIC [id number] 05:59:00 Test Item Value Reference Range Comments SODIUM (BEAKER) (test 141 meq/L 136-145 code = 381) POTASSIUM (BEAKER) (test 4.0 meq/L 3.5-5.1 code = 379) CHLORIDE (BEAKER) (test 110 meq/L 98-107 code = 382) CO2 (BEAKER) (test code = 26 meq/L 22-29 355) BLOOD UREA NITROGEN 11 mg/dL 7-21 (BEAKER) (test code = 354) CREATININE (BEAKER) (test 0.62 mg/dL 0.57-1.25 code = 358) GLUCOSE RANDOM (BEAKER) 97 mg/dL 70-105 (test code = 652) CALCIUM (BEAKER) (test 8.4 mg/dL 8.4-10.2 code = 697) EGFR (BEAKER) (test code 99 mL/min/1.73 sq m EST IMATED GFR IS NOT = 1092) ACCURATE CREA TININE CLEARANCE IN PRE DICTING GLOMERULAR FILTR ATION RATE. ESTIMATED GFR IS NOT APPLICABLE F OR DIALYSIS PATIENT S. Specimen slightly ictericLIPID [id number] 05:59:00 Test Item Value Reference Range Comments TRIGLYCERIDES (BEAKER) (test code = 540) 64 mg/dL CHOLESTEROL (BEAKER) (test code = 631) 142 mg/dL HDL CHOLESTEROL (BEAKER) (test code = 976) 44 mg/dL LDL CHOLESTEROL CALCULATED (BEAKER) (test code = 85 mg/dL 633) Triglyceride Reference Range: Low Risk <150 Borderline 150-199 High Risk 200-499 Very High Risk >=500Cholesterol Reference Range: Low Risk <200 Borderline 200-239 High Risk >240HDL Cholesterol Reference Range: Low Risk >=60 High Risk <40LDL Cholesterol Reference Range: Optimal <100 Near Optimal 100-129 Borderline 130-159 High 160-189 Very High >=190 Specimen slightly ictericHEPATIC FUNCTION [id number] 05:59:00 Test Item Value Reference Range Comments TOTAL PROTEIN (BEAKER) (test code = 770) 6.1 gm/dL 6.0-8.3 ALBUMIN (BEAKER) (test code = 1145) 3.2 g/dL 3.5-5.0 BILIRUBIN TOTAL (BEAKER) (test code = 377) 2.5 mg/dL 0.2-1 .2 BILIRUBIN DIRECT (BEAKER) (test code = 706) 1.2 mg/dL 0.1- 0.5 ALKALINE PHOSPHATASE (BEAKER) (test code = 346) 130 U/L 40-150 AST (SGOT) (BEAKER) (test code = 353) 47 U/L 5-34 ALT (SGPT) (BEAKER) (test code = 347) 41 U/L 6-55 Specimen slightly [id number] 05:59:00 Test Item Value Reference Range Comments LIPASE (BEAKER) (test code = 749) 35 U/L 8-78 Specimen slightly ictericPROTHROMBIN [id number] 05:58:00 Test Item Value Reference Range Comments PROTIME (BEAKER) (test code = 759) 15.9 seconds 11.9-14.2 INR (BEAKER) (test code = 370) 1.3 <=5.9 Effective 09/06/2018: PT Reference Range ChangeNew: 11.9-14.2 Previous: 11.7- 14.7RECOMMENDED COUMADIN/WARFARIN INR THERAPY RANGESSTANDARD DOSE: 2.0-3.0 Includes: PROPHYLAXIS for venous thrombosis, systemic embolization; TREATMENT for venous thrombosis and/or pulmonary embolus.HIGH RISK: Target INR is2.5-3.5 for patients wiht mechanical heart valves.CBC W/PLT COUNT & AUTO [id number] 05:37:00 Test Item Value Reference Range Comments WHITE BLOOD CELL COUNT (BEAKER) (test code = 775) 2.4 K/ L 3.5-10.5 RED BLOOD CELL COUNT (BEAKER) (test code = 761) 3.39 M/ L 3.93-5.22 HEMOGLOBIN (BEAKER) (test code = 410) 9.9 GM/DL 11.2-15.7 HEMATOCRIT (BEAKER) (test code = 411) 31.8 % 34.1-44.9 MEAN CORPUSCULAR VOLUME (BEAKER) (test code = 93.8 fL 79 .4-94.8 753) MEAN CORPUSCULAR HEMOGLOBIN (BEAKER) (test code = 29.2 pg 25.6-32.2 751) MEAN CORPUSCULAR HEMOGLOBIN CONC (BEAKER) (test 31.1 GM/DL 32.2-35.5 code = 752) RED CELL DISTRIBUTION WIDTH (BEAKER) (test code = 15.4 % 11.7-14.4 412) PLATELET COUNT (BEAKER) (test code = 756) 38 K/CU MM 150-45 0 MEAN PLATELET VOLUME (BEAKER) (test code = 754) 10.2 fL 9.4-12.3 NUCLEATED RED BLOOD CELLS (BEAKER) (test code = 0 /100 WBC 0-0 413) NEUTROPHILS RELATIVE PERCENT (BEAKER) (test code 57 % = 429) LYMPHOCYTES RELATIVE PERCENT (BEAKER) (test code 27 % = 430) MONOCYTES RELATIVE PERCENT (BEAKER) (test code = 10 % 431) EOSINOPHILS RELATIVE PERCENT (BEAKER) (test code 5 % = 432) BASOPHILS RELATIVE PERCENT (BEAKER) (test code = 1 % 437) NEUTROPHILS ABSOLUTE COUNT (BEAKER) (test code = 1.38 K/ L 1.56-6.13 670) LYMPHOCYTES ABSOLUTE COUNT (BEAKER) (test code = 0.65 K/ L 1.18-3.74 414) MONOCYTES ABSOLUTE COUNT (BEAKER) (test code = 0.24 K/ L 0 .24-0.36 415) EOSINOPHILS ABSOLUTE COUNT (BEAKER) (test code = 0.12 K/ L 0.04-0.36 416) BASOPHILS ABSOLUTE COUNT (BEAKER) (test code = 0.02 K/ L 0 .01-0.08 417) IMMATURE GRANULOCYTES-RELATIVE PERCENT (BEAKER) 0 % 0-1 (test code = 2801) POCT-HEMOGLOBIN [id number] 06:12:00 Test Item Value Reference Range Comments POC-HEMOGLOBIN METER (BEAKER) 8.6 g/dL 12.0-15.0 TE STED AT [facility] [address] (test code = 1539) [place] [address]
--- OUTSIDE RECORDS SUMMARY | 2019-08-12 15:21 | XMS REPORT | Summary of Care ---
:1960 Author Organization [facility] Address [address] [place] [address] Care Team Providers Name Role Phone Madhu Hernandez MD Primary Care Provider [phone] Reason for Referral (Routine) Status Reason Specialty Diagnoses / Referred By Referred To Procedures Contact Contact New Request IM-GASTROENTEROLO Diagnoses Cirrhosis of liver without ascites, unspecified hepatic cirrhosis type Corby Ca MD GY Procedures Discharge Follow-Up: Specialty Service IM-GASTROENTEROLOGY (hepatology); 1 Week [address] [place] [address] (Routine) Status Reason Specialty Diagnoses / Referred By Referred To Procedures Contact Contact New Request Diagnoses Cirrhosis of liver without ascites, unspecified hepatic cirrhosis type Corby Ca MD [place], Procedures Discharge Follow-up: PCP MADHU HERNANDEZ; 1 Week 301 [facility] Madhu Gallardo MD [address] [address] MALENA K Phone: [place], [place] [phone] [phone] Fax: MRI/CAT Scan (Routine) Status Reason Specialty Diagnoses / Referred By Referred To Procedures Contact Contact New Request Diagnostic Diagnoses SBO (small bowel obstruction) Corby Ca MD Radiology Procedures CT ABDOMEN PELVIS W CONTRAST [address] [place] [address] Radiology Services (STAT) Status Reason Specialty Diagnoses / Referred By Referred To Procedures Contact Contact New Request Diagnostic Diagnoses SBO (small bowel obstruction) Bryant, Radiology Procedures XR SMALL BOWEL SERIES MD Jenna [address] [facility] [address] [place] [address] Radiology Services (Routine) Status Reason Specialty Diagnoses / Referred By Referred To Procedures Contact Contact New Request Diagnostic Diagnoses SBO (small bowel obstruction) Wes Brito, Radiology Procedures Abdominal 1 View - To confirm nasogastric tube placement. [address] [place] [address]. RT [address] [place] [address] Reason for Visit Auth/Cert Status Reason Specialty Diagnoses / Procedures Referred By C ontact Referred To Contact Surgery Diagnoses SBO [facility] [address] [place] [address] [place], [place] [address] Phone: Fax: Encounter Details Date Type Department Care Team Description 08/10/2019 - Hospital ADC Medicine Wes Brito MD SBO (small bowel 08/11/2019 Encounter Surgery Unit [address] [place] [address]) [address] [place] [address]. RT [address] [place] [address] [place], [place] [phone] [id number] Allergies Active Allergy Reactions Severity Noted Date Comments Morphine Anaphylaxis, Shortness of High 06/30/2016 Th roat closes, tongue Breath, Swelling swelling documented as of this encounter (statuses as of 08/11/2019) Medications Medication Sig Dispensed Refills Start End Status Date Date lactulose 10 Take 30 mL by 1800 mL 0 08/11/19 Act onur gram/15 mL oral mouth 2 (two) 20 020 solutionIndications times daily : Cirrhosis of for 30 days. liver without ascites, unspecified hepatic cirrhosis type acetaminophen-codei Take 1 tablet 30 tablet 0 08/11/19 Active ne 300-30 mg by mouth every 20 tabletIndications: 4 (four) hours Cirrhosis of liver as needed for without ascites, Pain (scale unspecified hepatic 4-6). cirrhosis type pantoprazole 40 mg Take 1 tablet 30 tablet 0 08/11/19 Active EC by mouth daily 20 020 tabletIndications: for 30 days. Intractable nausea and vomiting traMADOL (ULTRAM) Take 1 tablet 20 tablet 0 02/25/20 Discontinued 50 mg tablet by mouth every 17 020 6 (six) hours as needed for Pain (scale 4-6). hydrocortisone Insert 1 12 Suppository 0 02/25/20 Discontinued (ANUSOL-HC) 25 mg Suppository 17 020 suppository into rectum 2 (two) times daily. hydrocortisone Insert into 30 g 0 02/25/20 Di scontinued (ANUSOL-HC) 2.5 % rectum 2 (two) 17 020 rectal cream times daily. ibuprofen 600 mg Take 1 tablet 30 tablet 0 09/27/19 Discontinued tablet by mouth every 18 020 6 (six) hours as needed for Pain (scale 4-6). cyclobenzaprine 10 Take 1 tablet 20 tablet 0 09/27/19 Discontinued mg tablet by mouth 3 18 020 (three) times daily. lactulose 10 Take 30 mL by 0 Dis continued gram/15 mL oral mouth 2 (two) 020 (Reorder) solution times daily. propranolol 10 mg Take 1 tablet 60 tablet 0 08/11/19 Discontinued tabletIndications: by mouth 2 20 020 Cirrhosis of liver (two) times without ascites, daily for 30 unspecified hepatic days. cirrhosis type documented as of this encounter (statuses as of 08/11/2019) Active Problems Problem Noted Date SBO (small bowel obstruction) 08/10/2019 Intractable nausea and vomiting 08/09/2016 Morbid obesity with body mass index of 40.0-49.9 08/07 Morbid obesity with body mass index of 50 or higher Nausea & vomiting 08/07/2016 documented as of this encounter (statuses as of 08/11/2019) Immunizations Name Administration Dates Next Due Influenza Virus Vaccine Quad .5 mL IM 6+ MO 08/11/2019 documented as of this encounter Social History Tobacco Use Types Packs/Day Years Used Date Never Smoker Smokeless Tobacco: Never Used Alcohol Use Drinks/Week oz/Week Comments Not Currently Sex Assigned at Date Recorded Not on file Job Start Date Occupation Industry Not on file Not on file Not on file Travel History Travel Start Travel End No recent travel history available. COVID-19 Exposure Response Date Recorded In the last month, have you been in contact with No / Unsure 08/10/2019 1:11 AM CDT someone who was confirmed or suspected to have Coronavirus / COVID-19? documented as of this encounter Last Filed Vital Signs Vital Sign Reading Time Taken Comments Blood Pressure 107/44 08/11/2019 3:04 PM CDT Pulse 70 08/11/2019 3:04 PM CDT Temperature 36.6 C (97.9 F) 08/11/2019 3:04 PM CDT Respiratory Rate 18 08/11/2019 3:04 PM CDT Oxygen Saturation 91% 08/11/2019 3:04 PM CDT Inhaled Oxygen Concentration - - Weight 119.3 kg (263 lb) 08/10/2019 3:01 AM CDT Height 162.6 cm (5' 4") 08/10/2019 3:01 AM CDT Body Mass Index 45.14 08/10/2019 3:01 AM CDT documented in this encounter Discharge Instructions AppointmentsFarzana Arenas - 08/10/2019 10:42 AM CDTYour follow up appointment With Dr Hernandez TuesdayAugust 21 @ 9:[address] [place] [address] [phone] If you need to make changes to this appointment please call the office. AttachmentsThe following attachments cannot be sent through Care Everywhere. Bowel Obstruction, Small (Surinamese)Propranolol tablets (Surinamese)Acetaminophen; Codeine tablets (Surinamese)Pantoprazole tablets (Surinamese)documented in this encounter Progress Notes Bebeto Gao RN - 08/11/2019 3:02 PM CDT Care Management Discharge Disposition Note (DCDN) 5-2-1 Interventions: Disease specific education;Intensive medication reconciliation/management;Teachback;Clear discharge plan;Follow-up appointments -2-1 Providers: Physician;Aircraft Restorer/Boat Captain 5-2-1 Patient Capacity Improvements: Avoidance of adverse events/readmission Discharge Plan for ongoing care and services: Is this a new referral: Patient Choice completed for referred services: DME location: Other DME location: Durable Medical Equipment: Home Health location: Discharge location(s): Patient choice completed for referred services: Discussed with patient/patients family involved in decision making: Yes Patient or family caregiver understands, and agrees with discharge plan. Community resources/referrals made or provided to patient: No Resources/Referrals: Transportation: Private Vehicle(Kamron Goss, and Myra Goss, dtr [phone]) Mental Status: Alert & Oriented to Person,Place & Time Living Arrangement: Home Other living arrangement: Address of living arrangement: [address] [place] [address] Funding Resources: Commercial Nursing informed of discharge plan: [place] of RN informed: Estimated discharge date: 08/11/19 Time: Additional Information: CM/SW Name & Contact number: Bebeto Gao RN BSN not for patient use [email or web address] The following information has been provided to the facility noted above: reason for the patient discharge or transfer; patients physical and psychosocial status; summary of care, treatment, servicesprovided to patient; and the patient progress toward goals. Valente Wong MD - 08/11/2019 9:44 AM CDT GENERAL SURGERY, DAILY PROGRESS NOTE Patient Name: Zenaida Goss Date of : 1960 Date: 08/11/2019 24 HOUR EVENTS: - Underwent SB follow through, all contrast down to rectum in 4 hours. Had bowel movement subsequently. - NGT was discontinued and started on CLD. Well tolerated. Wanted to try to solid food. - Still reports persistent abdominal pain Objective: Vital Signs Temp: [36.4 C (97.5 F)-37.1 C (98.7 F)] Pulse: [69-79] Resp: [18] BP: (102-115)/(43-63) Intake/Output No intake or output data in the 24 hours ending 08/11/19 0945 PHYSICAL EXAM Constitutional: No acute distress, alert and oriented Eyes: No gross deformities, extraocular movements grossly intact Cardiovascular: Normal S1/S2, no additional heart sounds noted Respiratory: Breath sounds equal bilaterally, no wheezing, rales, or rhonchi GI: Mild epigastric tenderness without rebound or guarding Musculoskeletal: No gross deformities, lesions Vascular: Radial and dorsalis pedis pulses palpable bilaterally Labs/Radiology CBC WBC (10*3/L) Date Value 08/11/2019 2.55 (L) RBC (10*6/L) Date Value 08/11/2019 3.43 (L) PLT (10*3/L) Date Value 08/11/2019 41 (LL) HGB (g/dL) Date Value 08/11/2019 11.2 (L) HCT (%) Date Value 08/11/2019 32.8 (L) BMP NA (mmol/L) Date Value 08/11/2019 138 K (mmol/L) Date Value 08/11/2019 3.8 CALCIUM (mg/dL) Date Value 08/11/2019 8.4 (L) CL (mmol/L) Date Value 08/11/2019 108 BUN (mg/dL) Date Value 08/11/2019 10 CREATININE (mg/dL) Date Value 08/11/2019 0.43 (L) GLUCOSE (mg/dL) Date Value 08/11/2019 108 CO2 TOTAL (mmol/L) Date Value 08/11/2019 24 No results found for: ACPH, ACPCO2, ACPO2, ACO2HB, ACNA, ACK, ACCAIONZ Abdominal 1 View - To Confirm Nasogastric Tube Placement. Result Date: 08/10/2019 1. Enteric tube terminates in the gastric body. 2. Gas-distended, nondilated large and small bowelin the visualized upper abdomen. Preliminary Report Dictated by Resident: Keo Le I, Yazmin Villalobos MD., have reviewed this study and agree with the above report. Xr Small Bowel Series Result Date: 08/10/2019 1. No bowel obstruction. No fluoroscopic images or fluoroscopic time. [id number] Electronically signedby Tomi aMgana MD at 08/10/2019 9:08 PM MEDICATIONS Scheduled Medications enoxaparin (LOVENOX) SC Syringe 40 mg DAILY pantoprazole (PROTONIX) IV Piggyback 40 mg Q12H IV Medications/Drips [id number] Last Rate: 1,000 mL (08/11/19 0258) PRN Medications FENTanyl PF 50 mcg Q4HPRN ibuprofen 600 mg Q6HPRN ondansetron 4 mg Q4HPRN Patient Active Problem List Diagnosis Morbid obesity with body mass index of 40.0-49.9 Morbid obesity with body mass index of 50 or higher Nausea & vomiting Intractable nausea and vomiting SBO (small bowel obstruction) Assessment/ Plan: Zenaida Goss is a 59 year old female with history of cirrhosis, appendectomy, open cholecystectomy, C section, who is admitted to medicine with diagnosis of possible SBO. Small bowel follow through revealed no obstruction. Had bowel movement. - Ok to advance diet. - Work up for abdominal pain per primary team - Surgery will continue to follow. The patient was seen and discussed with Dr. Garcia. Valente Piña MD General Surgery Resident [id number] signed by Ciro Garcia MD at 08/11/2019 12:11 PM CDT Associated attestation - Ciro Garcia MD - 08/11/2019 12:11 PM CDTI personally examined the patient on 08/11/[address] Piña's resident note as written . I actively participated in the decision-making process. Please see the resident's note for additional details. Liv Joy - 08/10/2019 11:42 AM CDTAttempted routine visit with patient - patient was asleep. Rupa Lo LBSW - 08/10/2019 10:57 AM CDTSubjective Patient ID: Zenaida Goss is a 59 year old female. Care Management Social Functional Assessment Patient Name: Zenaida Goss Age: [age] year old Sex: female Patient's Previous Admission Date at [facility]: 08/07/2016 Current diagnosis and co-morbidities: SBO Readmission Questions: Was patient discharged from any acute care hospital within the last 30 days: No Social Functional Assessment: Primary language spoken/preferred: Surinamese Mental Status: Alert & Oriented to Person,Place & Time Information given by: Self Patient's support system: Spouse;Child Name and number of support system: Kamron Goss, and Myra Goss, dtr [phone] Primary Credentialing Coordinator: Self MPOA: No Living Arrangement: Home Address of living arrangement : [address] [place] [address] Persons living in home: Self;Spouse Barriers to returning home: None Baseline functional status- ambulation: Independent Functional status-baseline personal care: Independent Baseline functional status- driving: Independent Baseline functional status- grocery shopping: Independent Functional status-baseline housekeeping: Independent Functional status-baseline meal prep: Independent Current functional status same as prior: Yes Do you have a PCP?: Yes Name of PCP: Dr. Albarado Home Health Care Agency: No Provider Services: No DME Company: No Equipment: None Hemodialysis: No Community resources utilized: None Funding Resources: Commercial Prescription coverage plan: Commercial Pharmacy where meds are filled: Other Anticipated services prior to disharge: Continue Medical Eval Expected mode of discharge transportation: Same as support system Additional Recommendations for DC: Medical clearance Additional info required for discharge planning: Pending medical evaluation Recommended discharge plan: Home SFA Complete: Social Functional Assessment complete: Yes Alcohol Use Screening (AUDIT-C) How often do you have a drink containing alcohol?: Never SCORE: 0 Did patient elect to have resources provided: No Role of Care Management explained. Any issues or concerns with obtaining/affording your medications at home: no. Are you or your support system able to pickling solution maker medications at discharge: yes. Review of Systems Objective Physical Exam Assessment/Plan Home with , no needs RIA Awad Boat Captain - Care Management [facility] [phone] julio [email or web address] documented in this encounter Plan of Treatment Health Maintenance Due Date Last Done Comments HEPATITIS C (HCV) SCREEN 1960 DTaP,Tdap,and Td Vaccines (1 - 1972 Tdap) PAP SMEAR 1982 Breast Cancer Screening 2001 (MAMMOGRAM) COLONOSCOPY 2011 Zoster Recombinant Vaccine 2011 (SHINGRIX) (1 of 2) INFLUENZA VACCINE (Season Ended) 2019 PNEUMOCOCCAL 0-64 YEARS COMBINED Aged Out No longer eligible based on SERIES patient's age to complete this topic documented as of this encounter Procedures Procedure Name Priority Date/Time Associated Comments Diagnosis CT ABDOMEN PELVIS W Routine 08/11/2019 9:50 SBO (small bowel Results for this CONTRAST AM CDT obstruction) procedure are i n the results section. CBC WITH DIFFERENTIAL Routine 08/11/2019 3:00 Re sults for this AM CDT procedure are i n the results section. CBC WITH DIFFERENTIAL Routine 08/11/2019 3:00 Re sults for this AM CDT procedure are i n the results section. COMP. METABOLIC PANEL Routine 08/11/2019 3:00 Re sults for this (08239) AM CDT procedure are i n the results section. XR SMALL BOWEL SERIES STAT 08/10/2019 4:18 SBO (small alysha l Results for this PM CDT obstruction) procedure are i n the results section. XR ABDOMEN 1 VW STAT 08/10/2019 6:52 SBO (small bowel Resu lts for this AM CDT obstruction) procedure are i n the results section. CBC WITH DIFFERENTIAL Routine 08/10/2019 6:11 Re sults for this AM CDT procedure are i n the results section. PROTHROMBIN TIME / INR Routine 08/10/2019 6:11 R esults for this AM CDT procedure are i n the results section. GLYCOSYLATED Routine 08/10/2019 6:11 Results for this HEMOGLOBIN (A1C) AM CDT procedure a re in the results section. CBC WITH DIFFERENTIAL Routine 08/10/2019 6:11 Re sults for this AM CDT procedure are i n the results section. SEDIMENTATION RATE Routine 08/10/2019 6:11 Resul ts for this AM CDT procedure are i n the results section. LIPID PANEL Routine 08/10/2019 6:11 Results for this ([id number])(TOTAL AM CDT procedure are in CHOLESTEROL, the results TRIGLYCERIDES, HDL) section. COMP. METABOLIC PANEL Routine 08/10/2019 6:11 Re sults for this (65663) AM CDT procedure are i n the results section. THYROID STIMULATING Routine 08/10/2019 6:11 Resu lts for this HORMONE AM CDT procedure are i n the results section. TEST, SERUM Routine 08/10/2019 6:11 Re sults for this AM CDT procedure are i n the results section. MAGNESIUM Routine 08/10/2019 6:11 Results for this AM CDT procedure are i n the results section. LIPASE Routine 08/10/2019 6:11 Results for this AM CDT procedure are i n the results section. AMYLASE Routine 08/10/2019 6:11 Results for this AM CDT procedure are i n the results section. CREATINE KINASE Routine 08/10/2019 6:11 Results for this AM CDT procedure are i n the results section. PHOSPHORUS Routine 08/10/2019 6:11 Results for this AM CDT procedure are i n the results section. CORONAVIRUS COVID-19 VERN 08/10/2019 4:04 Res ults for this TESTING AM CDT procedure are i n the results section. documented in this encounter Results CT ABDOMEN PELVIS W CONTRAST (08/11/2019 9:50 AM CDT) Specimen Impressions Performed At PACS/VR/DOSE 1. No evidence of small bowel obstruct ion. 2. Cirrhotic liver morphology with spl enomegaly and signs of portal hypertension. 3. Nonspecific mesenteric inflammation in the periceca l region with changes of prior appendectomy. There is no assoc iated wall thickening in the adjacent bowel. This could be infectious and appears s imilar on the prior study. Preliminary Report Dictated by Resident: Vilma Phelan I, Frandy Rodriguez MD., have reviewed this study and agree with the above report. Narrative Performed At EXAM: CT ABDOMEN AND PELVIS WITH CONTRAS T PACS/VR/DOSE HISTORY: Suspected small bowel obstructi on. COMPARISON: CT of the abdomen dated 2017. TECHNIQUE AND FINDINGS: Contiguous axial imaging from the level of the lung bases through the pubic symphysis was pe rformed after the uncomplicated administration of 120 cc of intravenous Omnipaque contrast. Coronal and sagittal reconstructions were obtained. Auto mA and/or iterative reconstruction were used to reduce radia tion dose. FINDINGS: LOWER THORAX: The lungs bases are clear. No cardiomegaly. LIVER: No focal hepatic lesions. Nodu lar liver contour. GALLBLADDER AND BILIARY TREE: Changes of cholecystectomy. No biliary dilatation. PANCREAS: No ductal dilation or masses. SPLEEN: The spleen is enlarged at 20 cm. ADRENAL GLANDS: No adrenal nodules. KIDNEYS: No hydronephrosis, stones, or m asses. PELVIS/BLADDER: The urinary bladder is unremarkable. A 2.7 cm right ov lindsay cystic lesion is seen (2: 130). A 3.4 cm left ovarian simple cyst is seen (2:123) GI TRACT: No dilation or wall thickening. Interval improvement in the previously noted thickenin g of the rectal wall and surrounding fat stranding. Oral contrast is seen in the large bowel loops. Changes of appendectomy with nonspecific inflammation in the pericecal region. This was similarly noted on the prior study with no associated colonic wall thickening. VESSELS: The main portal vein is dilated at 17 mm . LYMPH NODES: No lymphadenopathy. PERITONEUM AND RETROPERITONEUM: Trace as cites is seen. BONES AND SOFT TISSUES: No suspicious ly tic or sclerotic bony lesions. Procedure Note [facility], Radiant Results Inft User - 2019 2:28 PM CDT EXAM: CT ABDOMEN AND PELVIS WITH CONTRAST HISTORY: Suspected small bowel obstructi on. COMPARISON: CT of the abdomen dated 2017. TECHNIQUE AND FINDINGS: Contiguous axial imaging from the level of the lung bases through the pubic symphysis was pe rformed after the uncomplicated administration of 120 cc of intravenous Omnipaque contrast. Coronal and sagittal reconstructions were obtained. Auto mA and/or iterative reconstruction were used to reduce radia tion dose. FINDINGS: LOWER THORAX: The lungs bases are clear. No cardiomegaly. LIVER: No focal hepatic lesions. Nodul ar liver contour. GALLBLADDER AND BILIARY TREE: Changes of cholecystectomy. No biliary dilatation. PANCREAS: No ductal dilation or masses. SPLEEN: The spleen is enlarged at 20 cm. ADRENAL GLANDS: No adrenal nodules. KIDNEYS: No hydronephrosis, stones, or m asses. PELVIS/BLADDER: The urinary bladder is unremarkable. A 2 .7 cm right ovarian cystic lesion is seen (2: 130). A 3.4 cm left ovarian simple cyst is seen (2:123) GI TRACT: No dilation or wall thickening. Interval improvement in the previously n oted thickening of the rectal wall and surrounding fat stranding. Oral contrast is seen in the large bowel loops. Changes of appendectomy with nonspecific inflammation in the pericecal region. This was similarly noted on the prior study with no associated colonic wall thickening. VESSELS: The main portal vein is dilated at 17 mm . LYMPH NODES: No lymphadenopathy. PERITONEUM AND RETROPERITONEUM: Trace as cites is seen. BONES AND SOFT TISSUES: No suspicious ly tic or sclerotic bony lesions. IMPRESSION 1. No evidence of small bowel obstructi on. 2. Cirrhotic liver morphology with sple nomegaly and signs of portal hypertension. 3. Nonspecific mesenteric inflammation i n the pericecal region with changes of prior appendectomy. There is no assoc iated wall thickening in the adjacent bowel. This could be infectious and appears similar on the prior study. Preliminary Report Dictated by Resident: Vilma Phelan I, Frandy Rodriguez MD., have reviewed t his study and agree with the above report. Performing Organization Address City/State/Zipcode Phone Number PACS/VR/DOSE CBC WITH DIFFERENTIAL (08/11/2019 3:00 AM CDT) WBC 2.55 (L) 4.30 - 11.10 [facility] 10*3/L [facility] RBC 3.43 (L) 3.93 - 5.25 [facility] 10*6/L [facility] HGB 11.2 (L) 11.6 - 15.0 [facility] g/dL [facility] HCT 32.8 (L) 35.7 - 45.2 % [facility] MCV 95.6 (H) 80.6 - 95.5 [facility] LABORATORY MCH 32.7 25.9 - 32.8 [facility] LABORATORY MCHC 34.1 31.6 - 35.1 [facility] g/dL [facility] RDW-SD 58.0 (H) 39.0 - 49.9 [facility] LABORATORY RDW-CV 16.6 (H) 12.0 - 15.5 % [facility] PLT 41 (LL) 166 - 358 [facility] 10*3/L [facility] MPV 11.0 9.5 - 12.9 fL [facility] IPF % 5.5Comment: Platelet 1.3 - 7.7 % [facility] count measured by HOSPITAL fluorescence method. LABORATORY NRBC/100 WBC 0.0 0.0 - 10.0 [facility] /100 WBCs [facility] NRBC x10^3 <0.01 10*3/L [facility] GRAN MAT (NEUT) % 57.6 % [facility] IMM GRAN % 0.00 % [facility] LYMPH % 27.1 % [facility] MONO % 11.8 % [facility] EOS % 3.1 % [facility] BASO % 0.4 % [facility] GRAN MAT 1.47 (L) 1.88 - 7.09 [facility] x10^3(ANC) 10*3/uL HOSPITAL LABORATORY IMM GRAN x10^3 <0.03 0.00 - 0.06 [facility] 10*3/uL HOSPITAL LAB[facility]ATORY LYMPH x10^3 0.69 (L) 1.32 - 3.29 [facility] 10*3/uL [facility]ITAL LABORATORY MONO x10^3 0.30 (L) 0.33 - 0.92 [facility] 10*3/uL HOSPITAL LABORATORY EOS x10^3 0.08 0.03 - 0.39 [facility] 10*3/uL [facility] BASO x10^3 <0.03 0.01 - 0.07 [facility] 10*3/uL [facility] Specimen Blood - ARM, LEFT Performing Organization Address City/State/Zipcode Phone Number [facility] CLIA: [id number], [address] [place], [place] [address] COMP. METABOLIC PANEL ([id number]) (08/11/2019 3:00 AM CDT) NA 138 135 - 145 [facility] mmol/L [facility] K 3.8 3.5 - 5.0 [facility] mmol/L [facility] CL 108 98 - 108 mmol/L [facility] CO2 TOTAL 24 23 - 31 mmol/L [facility] AGAP 6 2 - 16 [facility] BUN 10 7 - 23 mg/dL [facility] GLUCOSE 108 70 - 110 mg/dL [facility] CREATININE 0.43 (L) 0.50 - 1.04 [facility] mg/dL [facility] TOTAL BILI 2.5 (H) 0.1 - 1.1 mg/dL [facility] CALCIUM 8.4 (L) 8.6 - 10.6 [facility] mg/dL [facility] T PROTEIN 6.1 (L) 6.3 - 8.2 g/dL [facility] ALBUMIN 3.1 (L) 3.5 - 5.0 g/dL [facility] ALK PHOS 102 34 - 122 U/L [facility] ALTv 52 (H) 5 - 35 U/L [facility] AST(SGOT) 63 (H) 13 - 40 U/L [facility] eGFR Calculation 150.8 mL/min/1.73m2 [facility] ([facility] LAB[facility]ATORY [place]) eGFR Calculation 182.8 mL/min/1.73m2 [facility] () [facility] Specimen Blood - ARM, LEFT Narrative Performed At [facility] Glomerular Filtration Rate (GFR) [facility] and Staging of Kidney Disease* + + +- + | GFR (mL/min/1.73 m2) | With Kidney Damage | Without Kidney Damage + + +- + | >90 | Stage one | Normal + + +- + | 60-89 | Stage two | Decreased GFR + + +- + | 30-59 | Stage three | Stage three + + +- + | 15-29 | Stage four | Stage four + + +- + | <15 (or dialysis) | Stage five | Stage five + + +- + *Each stage assumes the associated GFR level has been in effect for at least three months. Stages 1 to 5, with or without kidney disease, indicate chronic kidney disease. Notes: Determination of stages one and two (with eGFR >59mL/min/1.73 m2) requires estimation of kidney damage for at least three months as defined by structural or functional abnormalities of the kidney, manifested by either: Pathological abnormalities or Markers of kidney damage (including abnormalities in the composition of the blood or urine or abnormalities in imaging tests). Performing Organization Address City/State/Zipcode Phone Number [facility] CLIA: [id number], [address] [address] 15 [facility] XR SMALL BOWEL SERIES (08/10/2019 4:18 PM CDT) Specimen Impressions Performed At PACS/VR/DOSE 1. No bowel obstruction. No fluoroscopic images or fluoroscopic t rabia. RL [id number] 9: 08 PM Narrative Performed At HISTORY: Abdominal pain PACS/VR/DOSE COMPARISON: None FINDINGS: There is a nonobstructive bowel gas summer abby. Contrast is seen throughout the entire small bowel and colon. No dilated loops of bowel demonstrated. Procedure Note [facility], Radiant Results Inft User - 2019 9:09 PM CDT HISTORY: Abdominal pain COMPARISON: None FINDINGS: There is a nonobstructive bowel gas summer abby. Contrast is seen throughout the entire small bowel and colon. No dil ated loops of bowel demonstrated. IMPRESSION 1. No bowel obstruction. No fluoroscopic images or fluoroscopic t rabia. RL [id number] Performing Organization Address City/State/Zipcode Phone Number PACS/VR/DOSE Abdominal 1 View - To confirm nasogastric tube placement. (08/10/2019 6:52 AM CDT) Specimen Impressions Performed At PACS/VR/DOSE 1. Enteric tube terminates in the megan saleem body. 2. Gas-distended, nondilated large and small bowel i n the visualized upper abdomen. Preliminary Report Dictated by Resident: Keo Le I, Yazmin Villalobos MD., have reviewed this study and agree with the above report. Narrative Performed At EXAM: XR ABDOMEN 1 VW PACS/VR/DOSE HISTORY: 59 years-old Female. Examinatio n to evaluate for small bowel obstruction. COMPARISON: CT ABDOMEN PELVIS W CONTRAST , 10/14/2017. FINDINGS: Limited views of the upper abdomen demonstrate an ente saleem tube traversing the diaphragm terminating in the gastric body. Gaseous distended but nondilated loops o f large and small bowel are partially visualized. Cholecystectomy clips are noted. Branching hypoattenua ting structure in the distribution of the right kidney represe nting contrast from recent CT within the renal collecting system. No acute bony abnormalities are noted. Procedure Note [facility], Radiant Results Inft User - 2019 10:25 AM CDT EXAM: XR ABDOMEN 1 VW HISTORY: 59 years-old Female. Examinatio n to evaluate for small bowel obstruction. COMPARISON: CT ABDOMEN PELVIS W CONTRAST , 10/14/2017. FINDINGS: Limited views of the upper abdomen demon strate an enteric tube traversing the diaphragm terminating in the gastric body. Gaseous distended but nondilated loops o f large and small bowel are partially visualized. Cholecystectomy clips are noted. Branchi ng hypoattenuating structure in the distribution of the right kidney represe nting contrast from recent CT within the renal collecting system. No acute bony abnormalities are noted. IMPRESSION 1. Enteric tube terminates in the gastr ic body. 2. Gas-distended, nondilated large and small bowel in the visualized upper abdomen. Preliminary Report Dictated by Resident: Keo Le I, Yazmin Villalobos MD., have reviewed this study and agree with the above report. Performing Organization Address City/State/Zipcode Phone Number PACS/VR/DOSE CBC WITH DIFFERENTIAL (08/10/2019 6:11 AM CDT) WBC 2.49 (L) 4.30 - 11.10 [facility] 10*3/L [facility] RBC 3.61 (L) 3.93 - 5.25 [facility] 10*6/L [facility] HGB 11.5 (L) 11.6 - 15.0 [facility] g/dL [facility] HCT 34.3 (L) 35.7 - 45.2 % [facility] MCV 95.0 80.6 - 95.5 [facility] MCH 31.9 25.9 - 32.8 [facility] pg [facility] MCHC 33.5 31.6 - 35.1 [facility] g/dL [facility] RDW-SD 58.4 (H) 39.0 - 49.9 [facility] LABORATORY RDW-CV 16.7 (H) 12.0 - 15.5 % [facility] PLT 50 (LL) 166 - 358 [facility] 10*3/L [facility] MPV 10.5 9.5 - 12.9 fL [facility] IPF % 3.0Comment: Platelet 1.3 - 7.7 % [facility] count measured by HOSPITAL fluorescence method. LABORATORY NRBC/100 WBC 0.0 0.0 - 10.0 [facility] /100 WBCs [facility] NRBC x10^3 <0.01 10*3/L [facility] GRAN MAT (NEUT) % 57.1 % [facility] IMM GRAN % 0.40 % [facility] LYMPH % 28.1 % [facility] MONO % 10.4 % [facility] EOS % 3.6 % [facility] BASO % 0.4 % [facility] GRAN MAT 1.42 (L) 1.88 - 7.09 [facility] x10^3(ANC) 10*3/uL HOSPITAL LABORATORY IMM GRAN x10^3 <0.03 0.00 - 0.06 [facility] 10*3/uL HOSPITAL LAB[facility]ATORY LYMPH x10^3 0.70 (L) 1.32 - 3.29 [facility] 10*3/uL H[facility]ITAL LAB[facility]ATORY MONO x10^3 0.26 (L) 0.33 - 0.92 [facility] 10*3/uL HOSPITAL LAB[facility]ORY EOS x10^3 0.09 0.03 - 0.39 [facility] 10*3/uL [facility] BASO x10^3 <0.03 0.01 - 0.07 [facility] 10*3/uL [facility] PLT ESTIMATE Critically Decreased Normal [facility] () [facility] Specimen Blood - ARM, LEFT Performing Organization Address [facility] [place] Phone Number [facility] CLIA: [id number], [address] [place] [address] SEDIMENTATION RATE (08/10/2019 6:11 AM CDT) Pathologist Sig nature ESR 14 0 - 20 mm/HR [facility] Specimen Blood - ARM, LEFT Performing Organization Address [facility] [place] Phone Number [facility] CLIA: [id number], [address] [place] [address] LIPID PANEL ([id number])(TOTAL CHOLESTEROL, TRIGLYCERIDES, HDL) (08/10/2019 6:11 AM CDT) Pathologist Sig nature CHOL 158 120 - 200 mg/dL [facility] HDL 47 (L) >50 mg/dL [facility] HDLC RATIO 3.4 <=4.5 [facility] TRIG 51 30 - 170 mg/dL [facility] LDL CHOL 101 <=160 mg/dL [facility] VLDL 10 5 - 60 mg/dL [facility] Specimen Blood - ARM, LEFT Performing Organization Address [facility] [place] Phone Number [facility] CLIA: [id number], [address] [place], [place] [address] [address] AMYLASE (08/10/2019 6:11 AM CDT) Pathologist Sig nature LIN 73 35 - 110 U/L [facility] Specimen Blood - ARM, LEFT Performing Organization Address [facility] [place] Phone Number [facility] CLIA: [id number], [address] [place], [place] [address] LIPASE (08/10/2019 6:11 AM CDT) Pathologist Sig nature LIPASE 141 0 - 220 U/L [facility] Specimen Blood - ARM, LEFT Performing Organization Address [facility] [place] Phone Number [facility] CLIA: [id number], [address] CREATINE KINASE (08/10/2019 6:11 AM CDT) Pathologist Sig nature CK 123 33 - 194 U/L [facility] Specimen Blood - ARM, LEFT Performing Organization Address [facility] Number [facility] CLIA: [id number], [address] THYROID STIMULATING HORMONE (08/10/2019 6:11 AM CDT) Pathologist Sig nature TSH 2.66 0.45 - 4.70 mIU/L [facility] Specimen Blood - ARM, LEFT Performing Organization Address [facility]anner Number [facility] CLIA: [id number], [address] GLYCOSYLATED HEMOGLOBIN (A1C) (08/10/2019 6:11 AM CDT) Pathologist Sig nature HGB A1C 4.7 4.0 - 6.0 % NGSP [facility] L LABORATORY Specimen Blood - ARM, LEFT Narrative Performed At %A1C (NGSP) Interpretation (ADA) [facility] 4.8-5.6 Normal or (Non-Diabetic Ra nge) 5.7-6.4 Increased Risk (Pre-Diabet ic) >6.5 Diabetes Indicated Performing Organization Address [facility] [place] Phone Number [facility] CLIA: [id number], [address] PHOSPHORUS (08/10/2019 6:11 AM CDT) Pathologist Sig nature PHOSPHORUS 3.6 2.5 - 5.0 mg/dL [facility] Specimen Blood - ARM, LEFT Performing Organization Address [facility] Phone Number [facility] CLIA: [id number], [address] MAGNESIUM (08/10/2019 6:11 AM CDT) Pathologist Sig nature MAGNESIUM 1.6 (L) 1.7 - 2.4 mg/dL [facility] Specimen Blood - ARM, LEFT Performing Organization Address [facility] [place] Phone Number [facility] CLIA: [id number], [address] [place] [address] TEST, SERUM (08/10/2019 6:11 AM CDT) Pathologist Sig nature PREG SERUM Negative [facility] Specimen Blood - ARM, LEFT Narrative Performed At Less than 10 IU/L. If low titer or ectopic [facility] is suspected, resubmit specimen in 48-72 hours. Performing Organization Address [facility] Phone Number [facility] CLIA: [id number], [address] [place] [address] PROTHROMBIN TIME / INR (08/10/2019 6:11 AM CDT) PROTIME PATIENT 15.6 (H) 12.0 - 14.7 [facility] LABORATORY INR 1.3Comment: Normal [facility] INR <1.1; Warfarin [facility] Therapeutic range LABORATORY 2.0 to 3.0 or 2.5 to 3.5, depending upon the indications. Specimen Blood - ARM, LEFT Performing Organization Address [facility] [place] Phone Number [facility] CLIA: [id number], [address] COMP. METABOLIC PANEL ([id number]) (08/10/2019 6:11 AM CDT) NA 139 135 - 145 [facility] mmol/L [facility] K 3.9 3.5 - 5.0 [facility] mmol/L [facility] CL 109 (H) 98 - 108 mmol/L [facility] CO2 TOTAL 25 23 - 31 mmol/L [facility] AGAP 5 2 - 16 [facility] BUN 15 7 - 23 mg/dL [facility] GLUCOSE 218 (H) 70 - 110 mg/dL [facility] CREATININE 0.40 (L) 0.50 - 1.04 [facility] mg/dL [facility] TOTAL BILI 2.0 (H) 0.1 - 1.1 mg/dL [facility] CALCIUM 8.5 (L) 8.6 - 10.6 [facility] mg/dL [facility] T PROTEIN 6.2 (L) 6.3 - 8.2 g/dL [facility] ALBUMIN 3.1 (L) 3.5 - 5.0 g/dL [facility] ALK PHOS 99 34 - 122 U/L [facility] ALTv 42 (H) 5 - 35 U/L [facility] AST(SGOT) 49 (H) 13 - 40 U/L [facility] eGFR Calculation 163.9 mL/min/1.73m2 [facility] ([facility]ATORY [place]) eGFR Calculation 198.7 mL/min/1.73m2 [facility] ([facility]) [facility] Specimen Blood - ARM, LEFT Narrative Performed At [facility] Glomerular Filtration Rate (GFR) [facility] and Staging of Kidney Disease* + + +- + | GFR (mL/min/1.73 m2) | With Kidney Damage | Without Kidney Damage + + +- + | >90 | Stage one | Normal + + +- + | 60-89 | Stage two | Decreased GFR + + +- + | 30-59 | Stage three | Stage three + + +- + | 15-29 | Stage four | Stage four + + +- + | <15 (or dialysis) | Stage five | Stage five + + +- + *Each stage assumes the associated GFR level has been in effect for at least three months. Stages 1 to 5, with or without kidney disease, indicate chronic kidney disease. Notes: Determination of stages one and two (with eGFR >59mL/min/1.73 m2) requires estimation of kidney damage for at least three months as defined by structural or functional abnormalities of the kidney, manifested by either: Pathological abnormalities or Markers of kidney damage (including abnormalities in the composition of the blood or urine or abnormalities in imaging tests). Performing Organization Address [facility] Phone Number [facility] CLIA: [id number], [address] [place], [place] [address] [facility] CORONAVIRUS COVID-19 TESTING (08/10/2019 4:04 AM CDT) Pathologist Sig nature SARS-CoV-2 Not Detected Not Detected [facility] Specimen Swab - NASOPHARYNGEAL SWAB Narrative Performed At ID NOW COVID-19 Assay is an isothermal nucleic [facility] acid amplification test intended for the qualitative detection of nucleic acid from SARS-CoV-2 viral RNA in nasopharyngeal (CHECKER STOCKER) specimens. It is used under Emergency Use Authorization (EUA) by FDA. The limit of detection (LOD) of the assay is 125 Genome Equivalents/mL. A positive result is indicative of the presence of SARS-CoV-2 RNA. Clinical correlation with patient history and other diagnostic information is necessary to determine patient infection status. A negative (Not Detected) result does not preclude SARS-CoV-2 infection. Clinical correlation with patient history and other diagnostic information should be used in patient management decisions. Invalid: Please collect a new specimen for repeat patient testing if clinically indicated. Performing Organization Address [facility] Phone Number [facility] CLIA: [id number], [address] [place], [place] [address] [facility] documented in this encounter Visit Diagnoses Diagnosis SBO (small bowel obstruction) - Primary Unspecified intestinal obstruction Cirrhosis of liver without ascites, unsp ecified hepatic cirrhosis type Intractable nausea and vomiting Persistent vomiting documented in this encounter Administered Medications Medication Order MAR Action Action Date Dose Rate Site [id number] IV infusion 1,000 mL New Bag 08/11/2019 2:58 AM CDT 1,000 mL 100 mL/hr at 100 mL/hr, IV Infusion, CONTINUOUS, Starting Tue08/10/19 at 0530, Until Discontinued, Routine New Bag 08/10/2019 5:18 PM CDT 1,000 mL 100 mL/hr New Bag 08/10/2019 5:14 PM CDT 1,000 mL 100 mL/hr enoxaparin (LOVENOX) injection 40 mg Given 08/10/2019 10:07 AM CDT 40 mg Abdo men-SC 40 mg, Subcutaneous, DAILY, First dose on Tue08/10/19 at 0900, Until Discontinued, Routine FENTanyl PF (SUBLIMAZE (PF)) injection 50 Given 08/11/2019 12:54 PM CDT 50 mcg mcg 50 mcg, Slow IV Push, Q4HPRN, Starting Tue08/10/19 at 0422, Until Discontinued, Routine, Pain (scale 4-6) Given 08/11/2019 7:12 AM CDT 50 mcg Given 08/11/2019 2:42 AM CDT 50 mcg ibuprofen (IBU) tablet 600 mg 600 mg, Oral, Q6HPRN, Starting Tue08/10/19 at 1557, Unt il Discontinued, Routine, Pain (scale 1-3) ondansetron (ZOFRAN (PF)) injection 4 mg Given 08/11/2019 12:54 PM CDT 4 mg 4 mg, Slow IV Push, Q4HPRN, Starting Tue08/10/19 at 2230, Until Discontinued, Routine, Nausea and Vomiting (N/V) Given 08/11/2019 7:12 AM CDT 4 mg Given 08/11/2019 2:42 AM CDT 4 mg pantoprazole (PROTONIX) 40 mg in NaCl 0.9% Given 08/11/2019 8:2 4 AM CDT 40 mg (NS) 100 mL MINI-BAG 40 mg, IV Piggyback, Q12H, First dose on Tue08/10/19 at 0800, Until Discontinued, 100 mL Given 08/10/2019 8:52 PM CDT 40 mg Given 08/10/2019 7:49 AM CDT 40 mg Medication Order MAR Action Action Date Dose Rate Site flu vaccine 6 months and Given 08/11/2019 3:54 PM 0.5 mL Left Deltoid-IM up (FLUZONE QUAD CDT (PF)) syringe 0.5 mL 0.5 mL, Intramuscular, ONCE, 1 dose, 08/11/19 at 1600, Routine iohexol (OMNIPAQUE 350 BULK-100 mL) Given 08/11/2019 9:46 AM CD T 120 mL injection 120 mL 120 mL, Intravenous, ONCE, 1 dose, 08/11/19 at 1000, Routine LORazepam (ATIVAN) injection 0.25 mg Given 08/10/2019 6:00 AM CDT 0.25 mg 0.25 mg, Slow IV Push, ONCE, 1 dose, Tue08/10/19 at 0600, Routine ondansetron (ZOFRAN (PF)) injection 4 mg Given 08/10/2019 5:58 PM CDT 4 mg 4 mg, Slow IV Push, Q6HPRN, Starting Tue08/10/19 at 0355, Until Tue08/10/19 at 2229, Routine, Nausea and Vomiting (N/V) Given 08/10/2019 6:20 AM CDT 4 mg documented in this encounter Insurance Payer Benefit Plan / Subscriber ID Effective Phone Address Lucila [employer] Dates [facility] [id number] 2019-[place] [phone] [address] [employer] [facility] [id number] [place] [address] documented as of this encounter
[2019-08-12] MEDS ORDERED: FENTANYL CITR 100 MCG/2 ML ONE (16:03)
[2019-08-12] MEDS ORDERED: NA CHLORIDE 0.9% 1,000 ML ONE (16:03)
[2019-08-12] MEDS ORDERED: ONDANSETRON 4 MG/2 ML VIAL ONE (16:03)
[2019-08-12 17:02] LABS: Absolute Lymphocytes (CBC) 0.6 K/uL (0.7-4.9); Basophils % 0.6 % (0-1.3); Hematocrit 33.8 % (36.0-45.0); Lymphocytes % 28.4 % (15.3-44.8); MPV 8.1 fL (7.6-11.3); RBC Red Blood Cell Count 3.58 M/uL (3.86-4.86)
[2019-08-12 17:19] LABS: ALT/SGPT 54 U/L (12-78); AST/SGOT 51 U/L (15-37); Alkaline Phosphatase 128 U/L (45-117); BUN Blood Urea Nitrogen 9 mg/dL (7-18); Bicarbonate 29 mmol/L (21-32); Bilirubin Direct 0.7 mg/dL (0-0.2); Bilirubin Total 1.8 mg/dL (0.2-1.0); Glucose Level 89 mg/dL (74-106); Lipase 203 U/L (73-393); Potassium 3.9 mmol/L (3.5-5.1); Protein, Total 6.4 g/dL (6.4-8.2); Sodium Level 142 mmol/L (136-145)
--- NOTE | 2019-08-12 18:10 | RAD REPORT ---
EXAM DESCRIPTION: CTAbdomen Pelvis W Contrast - 08/12/2019 6:01 pm CLINICAL HISTORY: Abdominal pain. ABD PAIN COMPARISON: Abdomen Pelvis W Contrast dated 05/31/2019; Abdomen Pelvis W Contrast dated 04/13/2019; Abdomen Pelvis W Contrast dated 09/30/2018; Abdomen Pelvis W Contrast dated 05/29/2018 TECHNIQUE: Biphasic CT imaging of the abdomen and pelvis was performed with 100 ml non-ionic IV cont rast. All CT scans are performed using dose optimization technique as appropriate and may include automated exposure control or mA/KV adjustment according to patient size. FINDINGS: The lung bases are clear. Mild liver cirrhosis is present. Cholecystectomy clips are seen. No intra or extrahepatic biliary rosie e dilatation seen. Splenomegaly is present. Both adrenal glands and kidneys show no acute process. No bowel obstruction, free air, free fluid or abscess. Moderate stool is seen in the colon. The appen jagdeep appears absent. No evidence of significant lymphadenopathy. No suspicious bony findings. IMPRESSION: No acute intra-abdominal or pelvic finding. Liver cirrhosis is seen with moderate splenomegaly.
[2019-08-12 18:11] LABS: Urine White Blood Cell Casts OK
[2019-08-12 18:12] LABS: Anisocytosis 1+; Blood Morphology Comment NOTED (NOT SEEN); Platelet Estimate DECR; Poikilocytosis 1+
--- NOTE | 2019-08-12 18:29 | EDPHYS ---
Physician Documentation [facility] Name: Zenaida Goss Age: 59 yrs Sex: Female : 1960 Arrival Date: 08/12/2019 Time: 15:21 Bed 13 Private MD: ED Physician Marcio Stone HPI: 08/11 15:47 This 59 yrs old Female presents to ER via Ambulatory with complaints of kb Abdominal Pain, Back Pain. 15:47 The patient presents with abdominal pain in the epigastric area, in the right upper kb quadrant. Onset: The symptoms/episode began/occurred 2 week(s) ago. The symptoms radiate to right back. Associated signs and symptoms: Pertinent positives: diarrhea, nausea. The symptoms are described as constant. Modifying factors: The symptoms are alleviated by nothing, the symptoms are aggravated by nothing. Severity of pain: At its worst the pain was moderate in the emergency department the pain is unchanged. The patient has experienced similar episodes in the past. The patient has been recently seen by a physician:. Pt reports upper abd pain for 2 weeks that got worse. Reports she has a history of pancreatitis and that is what this pain feels like. Went to [place] on 08/09/19 and was diagnosed with SBO. Admitted to [facility] for that, NG tube placed and SBO resolved. Discharged from there yesterday, but still having pain. Reports slight nausea. Historical: - Allergies: 15:39 Morphine (Anaphylaxis); ca1 - Home Meds: 15:39 Lactulose Oral [Active]; pantoprazole oral oral [Active]; Tylenol #3 Oral [Active]; ca1 - PMHx: 15:39 Anemia; Cirrhosis; fatty liver; Pancreatitis; varices; ca1 - PSHx: 15:39 Lumpectomy; Appendectomy; Cholecystectomy; ca1 - Immunization history:: Adult Immunizations up to date, Flu vaccine is up to date. - Social history:: Smoking status: Patient denies any tobacco usage or history of. ROS: 15:51 Constitutional: Negative for fever, chills, and weight loss, Neck: Negative for injury, kb pain, and swelling, Cardiovascular: Negative for chest pain, palpitations, and edema, Respiratory: Negative for shortness of breath, cough, wheezing, and pleuritic chest pain, Back: Negative for injury and pain, MS/Extremity: Negative for injury and deformity, Skin: Negative for injury, rash, and discoloration, Neuro: Negative for headache, weakness, numbness, tingling, and seizure. 15:51 Abdomen/GI: Positive for abdominal pain, nausea, diarrhea, Negative for vomiting, constipation. Exam: 15:51 Constitutional: This is a well developed, well nourished patient who is awake, alert, kb and in no acute distress. Head/Face: Normocephalic, atraumatic. Chest/axilla: Normal chest wall appearance and motion. Nontender with no deformity. No lesions are appreciated. Cardiovascular: Regular rate and rhythm with a normal S1 and S2. No gallops, murmurs, or rubs. Normal PMI, no JVD. No pulse deficits. Respiratory: Lungs have equal breath sounds bilaterally, clear to auscultation and percussion. No rales, rhonchi or wheezes noted. No increased work of breathing, no retractions or nasal flaring. Back: No spinal tenderness. No costovertebral tenderness. Full range of motion. Skin: Warm, dry with normal turgor. Normal color with no rashes, no lesions, and no evidence of cellulitis. MS/ Extremity: Pulses equal, no cyanosis. Neurovascular intact. Full, normal range of motion. Neuro: Awake and alert, GCS 15, oriented to person, place, time, and situation. Cranial nerves II-XII grossly intact. Motor strength 5/5 in all extremities. Sensory grossly intact. Cerebellar exam normal. Normal gait. 15:51 Abdomen/GI: Inspection: abdomen appears normal, Bowel sounds: normal, in all quadrants, Palpation: soft, in all quadrants, nontender, in the right lower quadrant and left lower quadrant, mild abdominal tenderness, in the left upper quadrant, moderate abdominal tenderness, in the epigastric area and right upper quadrant. Vital Signs: 15:32 BP 144 / 73; Pulse 90; Resp 17 S; Temp 99.3(TE); Pulse Ox 97% on R/A; Weight 115.67 kg ca1 (R); Height 5 ft. 4 in. (162.56 cm) (R); Pain 10/10; 16:30 BP 127 / 54; Pulse 88; Resp 17; Pulse Ox 97% on R/A; rb1 17:30 BP 117 / 59; Pulse 71; Resp 18; Pulse Ox 95% on R/A; rb1 18:30 BP 108 / 55; Pulse 69; Resp 19; Pulse Ox 96% ; rb1 15:32 Body Mass Index 43.77 (115.67 kg, 162.56 cm) ca1 MDM: 15:33 Patient medically screened. kb 15:49 Data reviewed: vital signs, nurses notes. Data interpreted: Pulse oximetry: on room air kb is 97 %. Interpretation: normal. 18:16 Counseling: I had a detailed discussion with the patient and/or guardian regarding: the kb historical points, exam findings, and any diagnostic results supporting the discharge/admit diagnosis, lab results, radiology results, the need for outpatient follow up, a family practitioner, a inbound sales manager, to return to the emergency department if symptoms worsen or persist or if there are any questions or concerns that arise at home. 08/11 15:39 Order name: Basic Metabolic Panel; Complete Time: 17:20 kb 08/11 15:39 Order name: CBC with Diff; Complete Time: 18:16 kb 08/11 15:39 Order name: Hepatic Function; Complete Time: 17:20 kb 08/11 15:39 Order name: Lipase; Complete Time: 17:20 kb 08/11 17:10 Order name: CBC Smear Scan; Complete Time: 18:16 EDMS 08/11 17:21 Order name: CT Abd/Pelvis - IV Contrast Only; Complete Time: 18:16 kb 08/11 15:39 Order name: IV Saline Lock; Complete Time: 16:51 kb 08/11 15:39 Order name: Labs collected and sent; Complete Time: 16:51 kb Administered Medications: 16:32 Drug: NS 0.9% 1000 ml Route: IV; Rate: 1000 ml; Site: left forearm; ls4 16:32 Drug: Zofran (Ondansetron) 4 mg Route: IVP; Site: left hand; ls4 16:45 Follow up: Response: No adverse reaction rb1 16:32 Drug: fentaNYL (PF) 50 mcg Route: IVP; Site: left forearm; ls4 16:45 Follow up: Response: No adverse reaction; Pain is decreased rb1 Disposition: 08/12 07:20 Co-signature as Attending Physician, Marcio Stone MD. rn Disposition: 08/12/19 18:28 Discharged to Home. Impression: Upper abdominal pain, unspecified, Unspecified cirrhosis of liver. - Condition is Stable. - Discharge Instructions: Abdominal Pain, Adult, [id number]. - Prescriptions for Bentyl 20 mg Oral Tablet - take 1 tablet by ORAL route every 6 hours As needed; 20 tablet. Zofran 4 mg Oral Tablet - take 1 tablet by ORAL route every 6 hours As needed; 20 tablet. - Medication Reconciliation Form, Thank You Letter, Antibiotic Education, Prescription Opioid Use form. - Follow up: Emergency Department; When: As needed; Reason: Worsening of condition. Follow up: Private Physician; When: 2 - 3 days; Reason: Recheck today's complaints, Continuance of care, Re-evaluation by your physician. Signatures: Dispatcher [employer] EDMS Valarie Wise, STRATEGIC COMMUNICATIONS SPECIALIST-C STRATEGIC COMMUNICATIONS SPECIALIST-Marcio Alexander MD MD rn Katt Wilkins RN RN rb1 Kaylene Lara RN RN ls4 Vesna Deleon RN RN ca1 Corrections: (The following items were deleted from the chart) 08/11 18:58 18:28 08/12/2019 18:28 Discharged to Home. Impression: Upper abdominal pain, rb1 unspecified; Unspecified cirrhosis of liver. Condition is Stable. Discharge Instructions: Abdominal Pain, Adult, [id number]-[id number]. Prescriptions for Bentyl 20 mg Oral Tablet - take 1 tablet by ORAL route every 6 hours As needed; 20 tablet, Zofran 4 mg Oral Tablet - take 1 tablet by ORAL route every 6 hours As needed; 20 tablet. and Forms are Medication Reconciliation Form, Thank You Letter, Antibiotic Education, Prescription Opioid Use. Follow up: Emergency Department; When: As needed; Reason: Worsening of condition. Follow up: Private Physician; When: 2 - 3 days; Reason: Recheck today's complaints, Continuance of care, Re-evaluation by your physician. kb
--- NOTE | 2019-08-12 18:29 | ER ---
Nurse's Notes [facility] Name: Zenaida Goss Age: 59 yrs Sex: Female : 1960 Arrival Date: 08/12/2019 Time: 15:21 Bed 13 Private MD: Diagnosis: Upper abdominal pain, unspecified;Unspecified cirrhosis of liver Presentation: 08/11 15:32 Chief complaint: Patient states: I was at [place] 2 days ago for the same thing, and they ca1 transferred me to [facility] for bowel obstruction. I was admitted for 2 days and a NG tube was placed. They did a test yesterday where they put some kind of liquid through the NGT, I had diarrhea and they told me everything was okay and I didn't have obstruction then I was discharged. They told me to come back if I experience abdominal pains again. Today, the pain has gotten worse, more in the RUQ and radiates to my back. It feels like pancreatitis pain cause I have pancreatitis too. Coronavirus screen: Proceed with normal triage. Patient denies a cough. Patient denies shortness of breath or difficulty breathing. Patient denies measured and/or subjective temperature greater than 100.4F prior to today's visit. Patient denies travel on a cruise ship or to a country the [facility] currently lists as an affected area. Patient denies contact with known and/or suspected case of COVID-19. Ebola Screen: Patient negative for fever greater than or equal to 101.5 degrees Fahrenheit, and additional compatible Ebola Virus Disease symptoms Patient denies exposure to infectious person. Patient denies travel to an Ebola-affected area in the 21 days before illness onset. No symptoms or risks identified at this time. Initial Sepsis Screen: Does the patient meet any 2 criteria? No. Patient's initial sepsis screen is negative. Does the patient have a suspected source of infection? No. Patient's initial sepsis screen is negative. Risk Assessment: Do you want to hurt yourself or someone else? Patient reports no desire to harm self or others. Onset of symptoms was August 12, 2019. 15:32 Method Of Arrival: Ambulatory ca1 15:32 Acuity: TANK 3 ca1 Triage Assessment: 16:53 General: Appears in no apparent distress. comfortable, Behavior is calm, cooperative. ls4 Pain: Complains of pain in left upper quadrant and right upper quadrant and epigastric area. GI:. Historical: - Allergies: 15:39 Morphine (Anaphylaxis); ca1 - Home Meds: 15:39 Lactulose Oral [Active]; pantoprazole oral oral [Active]; Tylenol #3 Oral [Active]; ca1 - PMHx: 15:39 Anemia; Cirrhosis; fatty liver; Pancreatitis; varices; ca1 - PSHx: 15:39 Lumpectomy; Appendectomy; Cholecystectomy; ca1 - Immunization history:: Adult Immunizations up to date, Flu vaccine is up to date. - Social history:: Smoking status: Patient denies any tobacco usage or history of. Screenin:52 Abuse screen: Denies threats or abuse. Denies injuries from another. Nutritional ls4 screening: No deficits noted. Tuberculosis screening: No symptoms or risk factors identified. Fall Risk None identified. Assessment: 15:40 General: Appears uncomfortable, Behavior is calm, cooperative. Pain: Complains of pain rb1 in right upper quadrant. Neuro: Level of Consciousness is awake, alert, obeys commands, Oriented to person, place, time, situation. Cardiovascular: Capillary refill < 3 seconds. Respiratory: Airway is patent Respiratory effort is even, unlabored, Respiratory pattern is regular, symmetrical. GI: Bowel sounds present X 4 quads. Abd is soft Reports Was recently transferred to [facility] in [facility] for a bowel obstruction. Discharged yesterday from [facility], no bowel obstruction noted. : No signs and/or symptoms were reported regarding the genitourinary system. Derm: Skin is pink, warm \T\ dry. 16:40 Reassessment: Patient appears in no apparent distress at this time. Patient and/or rb1 family updated on plan of care and expected duration. Pain level reassessed. Patient is alert, oriented x 3, equal unlabored respirations, skin warm/dry/pink. 17:14 Reassessment: Pt. ambulated to the restroom without difficulty. rb1 18:27 Reassessment: Patient appears in no apparent distress at this time. Patient and/or rb1 family updated on plan of care and expected duration. Pain level reassessed. Patient is alert, oriented x 3, equal unlabored respirations, skin warm/dry/pink. Vital Signs: 15:32 BP 144 / 73; Pulse 90; Resp 17 S; Temp 99.3(TE); Pulse Ox 97% on R/A; Weight 115.67 kg ca1 (R); Height 5 ft. 4 in. (162.56 cm) (R); Pain 10/10; 16:30 BP 127 / 54; Pulse 88; Resp 17; Pulse Ox 97% on R/A; rb1 17:30 BP 117 / 59; Pulse 71; Resp 18; Pulse Ox 95% on R/A; rb1 18:30 BP 108 / 55; Pulse 69; Resp 19; Pulse Ox 96% ; rb1 15:32 Body Mass Index 43.77 (115.67 kg, 162.56 cm) ca1 ED Course: 15:21 Patient arrived in ED. as 15:33 Valarie [facility] FNP-C [facility]. kb 15:33 Marcio Stone MD is Attending Physician. kb 15:35 Katt Wilkins RN is Primary Nurse. rb1 15:38 Triage completed. ca1 15:39 Arm band placed on right wrist. ca1 16:52 Patient has correct armband on for positive identification. Bed in low position. Call ls4 light in reach. Side rails up X 1. teletypesetter monitor on. Pulse ox on. NIBP on. 16:52 No provider procedures requiring assistance completed. Initial lab(s) drawn, by in, ls4 sent to lab. Inserted saline lock: 22 gauge in left forearm, using aseptic technique. Blood collected. 18:01 CT completed. Patient tolerated procedure well. Patient moved back from CT. mw3 18:01 CT Abd/Pelvis - IV Contrast Only In Process Unspecified. EDMS 18:58 No provider procedures requiring assistance completed. IV discontinued, intact, rb1 bleeding controlled, No redness/swelling at site. Pressure dressing applied. Administered Medications: 16:32 Drug: NS 0.9% 1000 ml Route: IV; Rate: 1000 ml; Site: left forearm; ls4 16:32 Drug: Zofran (Ondansetron) 4 mg Route: IVP; Site: left hand; ls4 16:45 Follow up: Response: No adverse reaction rb1 16:32 Drug: fentaNYL (PF) 50 mcg Route: IVP; Site: left forearm; ls4 16:45 Follow up: Response: No adverse reaction; Pain is decreased rb1 Output: 17:14 Urine: 1ml (Voided); Total: 1ml. rb1 Outcome: 18:28 Discharge ordered by . kb 18:58 Patient left the ED. rb1 18:58 Discharged to home ambulatory. rb1 18:58 Condition: stable 18:58 Discharge instructions given to patient, Instructed on discharge instructions, follow up and referral plans. medication usage, Demonstrated understanding of instructions, follow-up care, medications, Prescriptions given X 2. Signatures: Dispatcher [employer] EDID Valarie Wise, KNITTING SUPERVISOR-C KNITTING SUPERVISOR-Lila Rodriguez Rebecca, RN RN rb1 Landy Marks mw3 Kaylene Lara RN RN ls4 Vesna Deleon RN RN ca1
[2019-08-12 19:37] VITALS: TEMP 99.3
[2019-08-12 19:41] VITALS: BP 108/55; O2SAT 96
== END 2019-08-12 18:58 | disposition home or self-care (01) ==
LOC: ER 15:19
DX: K74.60 Unspecified cirrhosis of liver (principal); K76.0 Fatty (change of) liver, not elsewhere classified; Z88.5 Allergy status to narcotic agent
CPT/HCPCS: 85025; 80048; 36415; 80076; 83690; 74177; Q9967; J3010; J7030; J2405; 99285

== ENCOUNTER 2019-08-28 21:28 | Emergency (ER) | payer OTHER ==
--- OUTSIDE RECORDS SUMMARY | 2019-08-28 21:30 | XMS REPORT | Clinical Summary ---
:1960 Author Organization [facility] Address [address] [place] [id number] Care Team Providers Name Role Phone MD Ruth Primary Care Provider Allergies Not on File Medications Not on file Active Problems Not on file Encounters Date Type Specialty Care Team Description 09/30/2018 Intake Access after 08/27/2018 Social History Tobacco Use Types Packs/Day Years [...] 2011 SHINGLES VACCINES (#1) 2011 INFLUENZA VACCINE 11/10/2019 Results Not on fileafter 08/27/2018 Advance Directives For more information, please contact: [phone] Type Date Recorded Patient Jewel Sorter Explanati on Advance Directives, Living Will and 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
--- OUTSIDE RECORDS SUMMARY | 2019-08-28 21:31 | XMS REPORT | Clinical Summary ---
:1960 Author Organization [facility] Address [address] [place] [address] Care Team Providers Name Role Phone Ruth Usman Primary Care Provider Unavailable Allergies Active Allergy Reactions Severity Noted Date Comments Latex Rash Low 03/28/2017 Morphine Shortness Of Breath, High 06/30/2016 Throat closes, tongue Swelling swelling Medications Medication Sig Dispensed Refills Start Date End Date Status lactulose (CEPHULAC) Take 10 g by 0 Active 10 gram packet mouth 2 (two) times daily . rifAXIMin 550 mg Take 550 mg 0 A ctive TabIndications: by mouth 2 hepatic (two) times encephalopathy daily. ibuprofen Take 100 mg 0 09/30/2018 Discont inued (ADVIL,MOTRIN) 100 MG by mouth tablet every 6 (six) hours as needed for Fever. pantoprazole Take 20 mg 0 09/30/2018 Disco ntinued (PROTONIX) 20 MG by mouth tablet daily. pantoprazole Take 1 60 tablet 1 10/03/2018 11/02/2018 Expir ed (PROTONIX) 40 MG tablet (40 tablet mg total) by mouth 2 (two) times daily for 30 days. cyanocobalamin Take 1 30 tablet 0 10/03/2018 11/02/2018 Exp ired (VITAMIN B-12) 1000 tablet MCG tablet (1,000 mcg total) by mouth daily for 30 days. Active Problems Problem Noted Date Epigastric abdominal pain 09/30/2018 Other cirrhosis of liver 09/30/2018 Increased ammonia level 09/30/2018 Encounters Date Type Specialty Care Team Description 10/02/2018 Anesthesia Event Gastroenterology Zev Sheffield MD 10/02/2018 Surgery Gastroenterology uHnter Bernstein UPPER END JUAN DAVID Oliva MD 09/30/2018 - Hospital General Internal Hiro, Seniapr Epigastric abdominal pain; 10/03/2018 Encounter Medicine MD Jocelyn Increased ammonia level; Jennifer Lora Other cirrhosis of liver (HCC); Nicole Bartholomew, H/O acute pa ncreatitis; Vitamin B12 deficiency Diane Holley MD Adio, Titilola R., MD 09/30/2018 Telephone Internal Medicine Hiro, Seniapr Abdominal Pain MD Jocelyn after 08/27/2018 Social History Tobacco Use Types [...] 116.8 kg (257 lb 9.6 oz) 09/30/2018 7:5 7 PM CDT Height 160 cm (5' 3") [...] Results for this PORTABLE/BEDSIDE AM CDT procedure a re in the results section. CBC W/PLT COUNT & Routine 10/03/2018 5:45 Result s for this AUTO DIFFERENTIAL AM CDT procedure are in the results section. CBC W/PLT COUNT & Routine 10/03/2018 5:45 Result s for this AUTO DIFFERENTIAL AM CDT procedure are in the results section. MAGNESIUM Routine 10/03/2018 5:45 Results for this AM CDT procedure are i n the results section. PROTHROMBIN TIME/INR Routine 10/03/2018 5:45 Res ults for this AM CDT procedure are i n the results section. HEPATIC FUNCTION Routine 10/03/2018 5:45 Results for this PANEL AM CDT procedure are i n the results section. BASIC METABOLIC PANEL Routine 10/03/2018 5:45 Re sults for this (7) AM CDT procedure are i n the results section. REPORT OF PROCEDURE - 10/02/2018 5:07 ENDOSCOPY URL PM CDT ENDOSCOPIC 10/02/2018 3:00 Epigastric pain ULTRASOUND,W/ENDO PM CDT UPPER ENDOSCOPY 10/02/2018 3:00 Epigastric pain PM CDT (CELLAVISION MANUAL Routine 10/02/2018 4:37 Resu lts for this DIFF) AM CDT procedure are i n the results section. CBC W/PLT COUNT & Routine 10/02/2018 4:37 Result s for this AUTO DIFFERENTIAL AM CDT procedure are in the results section. CBC W/PLT COUNT & Routine 10/02/2018 4:37 Result s for this AUTO DIFFERENTIAL AM CDT procedure are in the results section. MAGNESIUM Routine 10/02/2018 4:37 Results for this AM CDT procedure are i n the results section. PROTHROMBIN TIME/INR Routine 10/02/2018 4:37 Res ults for this AM CDT procedure are i n the results section. HEPATIC FUNCTION Routine 10/02/2018 4:37 Results for this PANEL AM CDT procedure are i n the results section. BASIC METABOLIC PANEL Routine 10/02/2018 4:37 Re sults for this (7) AM CDT procedure are i n the results section. CBC W/PLT COUNT & Routine 10/01/2018 5:09 Result s for this AUTO DIFFERENTIAL AM CDT procedure are in the results section. FERRITIN Routine 10/01/2018 5:09 Results for this AM CDT procedure are i n the results section. IRON, TIBC, % SAT. Routine 10/01/2018 5:09 Resul ts for this (WITHOUT FERRITIN) AM CDT procedure are in the results section. FOLATE, SERUM Routine 10/01/2018 5:09 Results fo r this AM CDT procedure are i n the results section. VITAMIN B12 Routine 10/01/2018 5:09 Results for this AM CDT procedure are i n the results section. LIPASE Routine 10/01/2018 5:09 Results for this AM CDT procedure are i n the results section. LIPID PANEL Routine 10/01/2018 5:09 Results for this AM CDT procedure are i n the results section. CBC W/PLT COUNT & Routine 10/01/2018 5:09 Result s for this AUTO DIFFERENTIAL AM CDT procedure are in the results section. MAGNESIUM Routine 10/01/2018 5:09 Results for this AM CDT procedure are i n the results section. PROTHROMBIN TIME/INR Routine 10/01/2018 5:09 Res ults for this AM CDT procedure are i n the results section. HEPATIC FUNCTION Routine 10/01/2018 5:09 Results for this PANEL AM CDT procedure are i n the results section. BASIC METABOLIC PANEL Routine 10/01/2018 5:09 Re sults for this (7) AM CDT procedure are i n the results section. after 08/27/2018 Results EKG-SCANNED (10/04/2018 12:20 PM CDT) Narrative Performed At This result has an attachment that is no t available. RHYTHM STRIP - SCAN (10/04/2018 12:20 PM CDT) Narrative Performed At This result has an attachment that is no t available. XR chest 1 view portable / bedside (10/03/2018 6:57 AM CDT) Specimen Narrative Performed At FINAL REPORT GE RIS CLINICAL HISTORY: SOB TECHNIQUE: 1 view of the chest. COMPARISON: None IMPRESSION: There is pulmonary vascular congestion w ith prominent lung markings bilaterally. Subpulmonic pleural effusio ns cannot be excluded. The cardiomediastinal silhouette is magnifie d by technique. Signed: Franky Hoyt MD Report Verified Date/Time:10/03/2018 07:50:47 Reading Location: [facility] Reading Room Procedure Note Interface, External Ris In - 10/03/2018 7:52 AM CDT FINAL REPORT CLINICAL HISTORY: SOB TECHNIQUE: 1 view of the chest. COMPARISON: None IMPRESSION: There is pulmonary vascular congestion w ith prominent lung markings bilaterally. Subpulmonic pleural effusio ns cannot be excluded. The cardiomediastinal silhouette is magnifie d by technique. Signed: Franky Hoyt MD Report Verified Date/Time: 10/03/2018 0 7:50:47 Reading Location: [facility] Reading [facility] Performing Organization Address City/State/Zipcode Phone Number GE RIS CBC with platelet count + automated diff (10/03/2018 5:45 AM CDT)Only the most recent of3 resultswithin the time period is included. WBC 2.4 (L) 3.5 - 10.5 K/L [facility] RBC 3.26 (L) 3.93 - 5.22 M/L [facility] Hemoglobin 9.6 (L) 11.2 - 15.7 GM/DL [facility] Hematocrit 30.8 (L) 34.1 - 44.9 % [facility] MCV 94.5 79.4 - 94.8 fL [facility] MCH 29.4 25.6 - 32.2 pg [facility] [place] MCHC 31.2 (L) 32.2 - 35.5 GM/DL [facility] RDW 15.2 (H) 11.7 - 14.4 % [facility] Platelets 38 (L) 150 - 450 K/CU MM [facility] MPV 10.3 9.4 - 12.3 fL [facility] nRBC 0 0 - 0 /100 WBC [facility] [place] % Neutros 57 % [facility] % Lymphs 26 % [facility] % Monos 11 % [facility] % Eos 6 % [facility] % Baso 0 % [facility] # Neutros 1.35 (L) 1.56 - 6.13 K/L [facility] # Lymphs 0.61 (L) 1.18 - 3.74 K/L [facility] # Monos 0.26 0.24 - 0.36 K/L [facility] # Eos 0.15 0.04 - 0.36 K/L [facility] # Baso 0.01 0.01 - 0.08 K/L [facility] Immature Granulocytes-Relative 0 0 - 1 % C [facility] Specimen Blood Performing Organization Address City/[facility] Cent[facility] Phone Number [address] [address] [place] Prothrombin time/INR (10/03/2018 5:45 AM CDT)Only the most recent of3 results within the time period is included. Protime 15.2 (H) 11.9 - 14.2 seconds [facility] INR 1.3 <=5.9 [facility] Specimen Blood Narrative Performed At Effective 09/06/2018: PT Reference Range [facility] Change New: 11.9-14.2Previous: 11.7-14.7 RECOMMENDED COUMADIN/WARFARIN INR THERAPY RANGES STANDARD DOSE: 2.0-3.0Includes: PROPHYLAXIS for venous thrombosis, systemic embolization; TREATMENT for venous thrombosis and/or pulmonary embolus. HIGH RISK: Target INR is 2.5-3.5 for patients wiht mechanical heart valves. Performing Organization Address City/State/Zipcode Phone Number [address] [address] CENTER Magnesium (10/03/2018 5:45 AM CDT)Only the most recent of3 resultswithin the time period is included. Magnesium 1.6 1.6 - 2.6 mg/dL [facility] Specimen Blood Performing Organization Address City/[facility]/Zipcode Phone Number [facility] [address] [place] [address] [place] Hepatic function panel (10/03/2018 5:45 AM CDT)Only the most recent of3 results within the time period is included. Protein, Total 5.9 (L) 6.0 - 8.3 gm/dL [facility] Albumin 3.1 (L) 3.5 - 5.0 g/dL [facility] Total Bilirubin 2.0 (H) 0.2 - 1.2 mg/dL [facility] Bilirubin, Direct 1.0 (H) 0.1 - 0.5 mg/dL [facility] Alkaline Phosphatase 123 40 - 150 U/L [facility] AST 45 (H) 5 - 34 U/L [facility] ALT 35 6 - 55 U/L [facility] Specimen Blood Narrative Performed At Specimen slightly icteric [facility] Performing Organization Address City/[facility]/Zipcode Phone Number [facility] [address] [place] [address] [place] Basic metabolic panel (10/03/2018 5:45 AM CDT)Only the most recent of3 results within the time period is included. Sodium 138 136 - 145 meq/L [facility] Potassium 4.0 3.5 - 5.1 meq/L [facility] Chloride 107 98 - 107 meq/L [facility] CO2 25 22 - 29 meq/L [facility] BUN 10 7 - 21 mg/dL [facility] Creatinine 0.65 0.57 - 1.25 mg/dL [facility] Glucose 99 70 - 105 mg/dL [facility] Calcium 8.2 (L) 8.4 - 10.2 mg/dL [facility] EGFR 94Comment: ESTIMATED GFR IS mL/min/1.73 sq m [facility] NOT ACCURATE [facility]IN[facility] CLEARANCE IN PREDICTING GLOMERULAR FILTRATION RATE. ESTIMATED GFR IS NOT APPLICABLE FOR DIALYSIS PATIENTS. Specimen Blood Narrative Performed At Specimen slightly icteric [facility] Performing Organization Address City/State/Zipcode Phone Number [facility] [address] [place] [address] CENTER REPORT OF PROCEDURE - ENDOSCOPY URL (10/02/2018 5:07 PM CDT) Narrative Performed At This result has an attachment that is no t available. Manual Differential (10/02/2018 4:37 AM CDT) % Neutros 70 % [facility] % Lymphs 21 % [facility] % Monos 9 % [facility] # Neutros 1.40 (L) 1.56 - 6.13 K/ul [facility] # Lymphs 0.42 (L) 1.18 - 3.74 K/ul [facility] # Monos 0.18 (L) 0.24 - 0.36 K/uL [facility] Total Counted [address] [facility] [place] RBC Morph[facility] Normal [facility] [place] WBC Morphology Normal [facility] Platelet Morphology Normal [facility] Artifact Present [facility] Platelet Conc Decreased [facility] Specimen Blood Narrative Performed At Received comment: [facility] User comments: Slide comments: Performing Organization Address City/State/Zipcode Phone Number [address] [address] [facility] Iron, TIBC, % sat. (without ferritin) (10/01/2018 5:09 AM CDT) Iron 81.0 40.0 - 160.0 ug/dL [facility] TIBC 291 250 - 450 ug/dL [facility] Iron % Saturation 28 20 - 55 % [facility] Specimen Blood Performing Organization Address City/State/Zipcode Phone Number [address] [address] [facility] Lipase (10/01/2018 5:09 AM CDT) Lipase 35 8 - 78 U/L [facility] Specimen Blood Narrative Performed At Specimen slightly icteric [facility] Performing Organization Address City/State/Zipcode Phone Number [address] [address] [facility] Folate, Serum (10/01/2018 5:09 AM CDT) Folate 11.3 >=7.0 ng/mL [facility] Specimen Blood Performing Organization Address City/[facility]/Zipcode Phone Number [address] [address] [place] Ferritin (10/01/2018 5:09 AM CDT) Ferritin 21 5 - 275 ng/mL [facility] Specimen Blood Performing Organization Address City/State/Zipcode Phone Number [address] [address] [facility] Vitamin B12 (10/01/2018 5:09 AM CDT) Vitamin B12 178 (L) 213 - 816 pg/mL [facility] Specimen Blood Performing Organization Address City/State/Zipcode Phone Number [address] [place] [address] [place] Lipid panel (10/01/2018 5:09 AM CDT) Triglycerides 64 mg/dL [facility] Cholesterol 142 mg/dL [facility] HDL 44 mg/dL [facility] LDL Calculated 85 mg/dL [facility] Specimen Blood Narrative Performed At Triglyceride Reference Range: [facility] Low Risk <150 [id number] High Risk 200-499 Very High Risk>=500 Cholesterol Reference Range: Low Risk <200 [id number] High Risk>240 HDL Cholesterol Reference Range: Low Risk >=60 High Risk <40 LDL Cholesterol Reference Range: Optimal<100 Near [id number] Very High >=190 Specimen slightly icteric Performing Organization Address City/State/Zipcode Phone Number [address] [address] [place] after 08/27/2018 Advance Directives For more information, please contact:[address] [phone] Code Status Date Activated Date Inactivated Comments Full Code 09/30/2018 8:45 PM 10/03/2018 7:37 PM This code status was determined by: Patient
--- OUTSIDE RECORDS SUMMARY | 2019-08-28 21:31 | XMS REPORT ---
:1960 Author Organization [facility] t Address [facility] [place] [address] Care Team Providers Name Role Phone Ruth HENSLEY Primary Care Physician Nasrin REYES, A Attending Clinician Unavailable Alisha HENSLEY Attending Clinician SHAYY DAVEY Attending Clinician Unavailable JUDIT ESCALONA Attending Clinician Unavailable Alisha HENSLEY Admitting Clinician SHAYY DAVEY Admitting Clinician Unavailable JUDIT ESCALONA Admitting Clinician Unavailable Payers Payer Name Policy Type Policy Number Effective Date Expiration Date S yonny BCBSBCBS xxxxxxxxxxxx 2017 [place] CHOICE 00:00:00 [employer] P[employer] PPOxxxxxxxxxxx 2017-Pres entPPO Problems This patient has no known problems. Allergies, Adverse Reactions, Alerts This patient has no known allergies or adverse reactions. Social History Social Habit Start Date Stop Date Quantity Comments Source Sex Assigned At Bárbara Chaidez Medications This patient has no known medications. Procedures This patient has no known procedures. Plan of Care Planned Activity Planned Date Details Comments Source Future Scheduled 2019-11-10 INFLUENZA VACCINE [place] [facility] Test 00:00:00 [code = INFLUENZA VACCINE] Future Scheduled 2011 BREAST CANCER [place] [facility] Test 00:00:00 SCREENING [code = BREAST CANCER SCREENING] Future Scheduled 2011 COLONOSCOPY SCREENING Aurelio wilburn [facility] Test 00:00:00 [code = COLONOSCOPY SCREENING] Future Scheduled 2011 SHINGLES VACCINES [place] [facility] Test 00:00:00 (#1) [code = SHINGLES VACCINES (#1)] Future Scheduled 1982 Screening for [facility] Test 00:00:00 malignant neoplasm of cervix (procedure) [code = 475569463] Encounters Start End Encounter Admission Attending Care Care Encounter Source Date/Time Date/Time Type Type Clinicians Facility Department ID 2019-08-14 2019-08-14 Transition Jocelyne Alexandra [id number] 00:00:00 00:00:00 of Care Jovanny Sotelo [id number] [place] [id number] 2019-08-10 2019-08-11 [facility] [id number] 02:55:00 16:09:00 Encounter Wes Amin [id number] [place] [id number] [place] [id number] Results Test Description Test Time Test Comments Results Result Sour e Comments RAD, CHEST, 1 2018-10-03 Reason for FINAL REPORT PATIENT VIEW, NON DEPT 07:50:00 exam:->SOBShoul ID: [id number] CLINICAL d this be HISTORY: SOB performed at TECHNIQUE: 1 view of the the chest. COMPARISON: bedside?->Yes None IMPRESSION: There is pulmonary vascular congestion with prominent lung markings bilaterally. Subpulmonic pleural effusions cannot be excluded. The cardiomediastinal silhouette is magnified by technique. Signed: Franky Hoyt MDReport Verified Date/Time: 10/03/2018 07:50:47 Reading Location: [facility] Radiology Reading Room ESIUM 2018-10-03 07:37:00 Test Item Value Reference Range Interpretation Comme nts MAGNESIUM (BEAKER) (test code = 627) 1.6 mg/dL 1.6-2.6 BASIC METABOLIC [id number] 07:37:00 Test Item Value Reference Range Interpretation Comments SODIUM (BEAKER) 138 meq/L 136-145 (test code = 381) POTASSIUM (BEAKER) 4.0 meq/L 3.5-5.1 (test code = 379) CHLORIDE (BEAKER) 107 meq/L 98-107 (test code = 382) CO2 (BEAKER) (test 25 meq/L 22-29 code = 355) BLOOD UREA NITROGEN 10 mg/dL 7-21 (BEAKER) (test code = 354) CREATININE (BEAKER) 0.65 mg/dL 0.57-1.25 (test code = 358) GLUCOSE RANDOM 99 mg/dL 70-105 (BEAKER) (test code = 652) CALCIUM (BEAKER) 8.2 mg/dL 8.4-10.2 L (test code = 697) EGFR (BEAKER) (test 94 mL/min/1.73 ESTIMA CHIKIS GFR IS code = 1092) sq m NOT ACCURATE CREATININE CLEARANCE IN PREDICTING GLOMERULAR FILTRATION RATE . ESTIMATED GFR I S NOT APPLICABLE FOR DIALYSIS PATIEN TS. Specimen slightly ictericHEPATIC FUNCTION [id number] 07:37:00 Test Item Value Reference Range Interpretation Comments TOTAL PROTEIN (BEAKER) (test code = 5.9 gm/dL 6.0-8.3 L 770) ALBUMIN (BEAKER) (test code = 1145) 3.1 g/dL 3.5-5.0 L BILIRUBIN TOTAL (BEAKER) (test code 2.0 mg/dL 0.2-1.2 H = 377) BILIRUBIN DIRECT (BEAKER) (test 1.0 mg/dL 0.1-0.5 H code = 706) ALKALINE PHOSPHATASE (BEAKER) (test 123 U/L 40-150 code = 346) AST (SGOT) (BEAKER) (test code = 45 U/L 5-34 H 353) ALT (SGPT) (BEAKER) (test code = 35 U/L 6-55 347) Specimen slightly ictericPROTHROMBIN [id number] 06:25:00 Test Item Value Reference Range Interpretation Comments PROTIME (BEAKER) (test code = 15.2 seconds 11.9-14.2 H 759) INR (BEAKER) (test code = 370) 1.3 <=5.9 Effective 09/06/2018: PT Reference Range ChangeNew: 11.9-14.2 Previous: 11.7- 14.7RECOMMENDED COUMADIN/WARFARIN INR THERAPY RANGESSTANDARD DOSE: 2.0-3.0 Includes: PROPHYLAXIS for venous thrombosis, systemic embolization; TREATMENT for venous thrombosis and/or pulmonary embolus.HIGH RISK: Target INR is2.5-3.5 for patients wiht mechanical heart valves.CBC W/PLT COUNT & AUTO [id number] 06:16:00 Test Item Value Reference Range Interpretation Comments WHITE BLOOD CELL COUNT (BEAKER) 2.4 K/ L 3.5-10.5 L (test code = 775) RED BLOOD CELL COUNT (BEAKER) 3.26 M/ L 3.93-5.22 L (test code = 761) HEMOGLOBIN (BEAKER) (test code = 9.6 GM/DL 11.2-15.7 L 410) HEMATOCRIT (BEAKER) (test code = 30.8 % 34.1-44.9 L 411) MEAN CORPUSCULAR VOLUME (BEAKER) 94.5 fL 79.4-94.8 (test code = 753) MEAN CORPUSCULAR HEMOGLOBIN 29.4 pg 25.6-32.2 (BEAKER) (test code = 751) MEAN CORPUSCULAR HEMOGLOBIN CONC 31.2 GM/DL 32.2-35.5 L (BEAKER) (test code = 752) RED CELL DISTRIBUTION WIDTH 15.2 % 11.7-14.4 H (BEAKER) (test code = 412) PLATELET COUNT (BEAKER) (test code 38 K/CU MM 150-450 L = 756) MEAN PLATELET VOLUME (BEAKER) 10.3 fL 9.4-12.3 (test code = 754) NUCLEATED RED BLOOD CELLS (BEAKER) 0 /100 WBC 0-0 (test code = 413) NEUTROPHILS RELATIVE PERCENT 57 % (BEAKER) (test code = 429) LYMPHOCYTES RELATIVE PERCENT 26 % (BEAKER) (test code = 430) MONOCYTES RELATIVE PERCENT 11 % (BEAKER) (test code = 431) EOSINOPHILS RELATIVE PERCENT 6 % (BEAKER) (test code = 432) BASOPHILS RELATIVE PERCENT 0 % (BEAKER) (test code = 437) NEUTROPHILS ABSOLUTE COUNT 1.35 K/ L 1.56-6.13 L (BEAKER) (test code = 670) LYMPHOCYTES ABSOLUTE COUNT 0.61 K/ L 1.18-3.74 L (BEAKER) (test code = 414) MONOCYTES ABSOLUTE COUNT (BEAKER) 0.26 K/ L 0.24-0.36 (test code = 415) EOSINOPHILS ABSOLUTE COUNT 0.15 K/ L 0.04-0.36 (BEAKER) (test code = 416) BASOPHILS ABSOLUTE COUNT (BEAKER) 0.01 K/ L 0.01-0.08 (test code = 417) IMMATURE GRANULOCYTES-RELATIVE 0 % 0-1 PERCENT (BEAKER) (test code = 2801) (CELLAVISION MANUAL DIFF)2018-10-02 09:41:00 Test Item Value Reference Range Interpretation Comments NEUTROPHILS - REL 70 % (CELLAVISION)(BEAKER) (test code = 2816) LYMPHOCYTES - REL 21 % (CELLAVISION)(BEAKER) (test code = 2817) MONOCYTES - REL 9 % (CELLAVISION)(BEAKER) (test code = 2818) NEUTROPHILS - ABS 1.40 K/ul 1.56-6.13 L (CELLAVISION)(BEAKER) (test code = 2830) LYMPHOCYTES - ABS 0.42 K/ul 1.18-3.74 L (CELLAVISION)(BEAKER) (test code = 2831) MONOCYTES - ABS 0.18 K/uL 0.24-0.36 L (CELLAVISION)(BEAKER) (test code = 2832) TOTAL COUNTED (BEAKER) (test code = 100 1351) RBC MORPHOLOGY (BEAKER) (test code Normal = 762) WBC MORPHOLOGY (BEAKER) (test code Normal = 487) PLT MORPHOLOGY (BEAKER) (test code Normal = 486) ARTIFACT (CELLAVISION)(BEAKER) Present (test code = 3432) PLATELET CONCENTRATION Decreased (CELLAVISION)(BEAKER) (test code = 3438) Received comment: User comments: Slide comments:[id number] 05:58:00 Test Item Value Reference Range Interpretation Comments MAGNESIUM (BEAKER) (test code = 1.6 mg/dL 1.6-2.6 627) BASIC METABOLIC [id number] 05:58:00 Test Item Value Reference Range Interpretation Comments SODIUM (BEAKER) 138 meq/L 136-145 (test code = 381) POTASSIUM (BEAKER) 4.0 meq/L 3.5-5.1 (test code = 379) CHLORIDE (BEAKER) 107 meq/L 98-107 (test code = 382) CO2 (BEAKER) (test 26 meq/L 22-29 code = 355) BLOOD UREA NITROGEN 12 mg/dL 7-21 (BEAKER) (test code = 354) CREATININE (BEAKER) 0.64 mg/dL 0.57-1.25 (test code = 358) GLUCOSE RANDOM 107 mg/dL 70-105 H (BEAKER) (test code = 652) CALCIUM (BEAKER) 8.0 mg/dL 8.4-10.2 L (test code = 697) EGFR (BEAKER) (test 96 mL/min/1.73 ESTIMA CHIKIS GFR IS code = 1092) sq m NOT ACCURATE CREATININE CLEARANCE IN PREDICTING GLOMERULAR FILTRATION RATE . ESTIMATED GFR I S NOT APPLICABLE FOR DIALYSIS PATIEN TS. Specimen slightly ictericHEPATIC FUNCTION [id number] 05:58:00 Test Item Value Reference Range Interpretation Comments TOTAL PROTEIN (BEAKER) (test code = 5.8 gm/dL 6.0-8.3 L 770) ALBUMIN (BEAKER) (test code = 1145) 3.0 g/dL 3.5-5.0 L BILIRUBIN TOTAL (BEAKER) (test code 2.2 mg/dL 0.2-1.2 H = 377) BILIRUBIN DIRECT (BEAKER) (test 1.1 mg/dL 0.1-0.5 H code = 706) ALKALINE PHOSPHATASE (BEAKER) (test 125 U/L 40-150 code = 346) AST (SGOT) (BEAKER) (test code = 49 U/L 5-34 H 353) ALT (SGPT) (BEAKER) (test code = 39 U/L 6-55 347) Specimen slightly ictericPROTHROMBIN [id number] 05:26:00 Test Item Value Reference Range Interpretation Comments PROTIME (BEAKER) (test code = 15.3 seconds 11.9-14.2 H 759) INR (BEAKER) (test code = 370) 1.3 <=5.9 Effective 09/06/2018: PT Reference Range ChangeNew: 11.9-14.2 Previous: 11.7- 14.7RECOMMENDED COUMADIN/WARFARIN INR THERAPY RANGESSTANDARD DOSE: 2.0-3.0 Includes: PROPHYLAXIS for venous thrombosis, systemic embolization; TREATMENT for venous thrombosis and/or pulmonary embolus.HIGH RISK: Target INR is2.5-3.5 for patients wiht mechanical heart valves.CBC W/PLT COUNT & AUTO [id number] 05:20:00 Test Item Value Reference Range Interpretation Comments WHITE BLOOD CELL COUNT (BEAKER) 2.0 K/ L 3.5-10.5 L (test code = 775) RED BLOOD CELL COUNT (BEAKER) 3.20 M/ L 3.93-5.22 L (test code = 761) HEMOGLOBIN (BEAKER) (test code = 9.5 GM/DL 11.2-15.7 L 410) HEMATOCRIT (BEAKER) (test code = 30.5 % 34.1-44.9 L 411) MEAN CORPUSCULAR VOLUME (BEAKER) 95.3 fL 79.4-94.8 H (test code = 753) MEAN CORPUSCULAR HEMOGLOBIN 29.7 pg 25.6-32.2 (BEAKER) (test code = 751) MEAN CORPUSCULAR HEMOGLOBIN CONC 31.1 GM/DL 32.2-35.5 L (BEAKER) (test code = 752) RED CELL DISTRIBUTION WIDTH 15.2 % 11.7-14.4 H (BEAKER) (test code = 412) PLATELET COUNT (BEAKER) (test code 39 K/CU MM 150-450 L = 756) MEAN PLATELET VOLUME (BEAKER) 10.9 fL 9.4-12.3 (test code = 754) NUCLEATED RED BLOOD CELLS (BEAKER) 0 /100 WBC 0-0 (test code = 413) VITAMIN [id number] 06:57:00 Test Item Value Reference Range Interpretation Comments VITAMIN B12 (BEAKER) (test code = 178 pg/mL 213-816 L 774) [id number] 06:57:00 Test Item Value Reference Range Interpretation Comments FERRITIN (BEAKER) (test code = 361) 21 ng/mL 5-275 FOLATE, [id number] 06:57:00 Test Item Value Reference Range Interpretation Comments FOLATE (BEAKER) (test code = 362) 11.3 ng/mL >=7.0 IRON, TIBC, % SAT. (WITHOUT FERRITIN)2018-10-01 05:59:00 Test Item Value Reference Range Interpretation Comments IRON (BEAKER) (test code = 547) 81.0 ug/dL 40.0-160.0 TOTAL IRON BINDING CAPACITY 291 ug/dL 250-450 (BEAKER) (test code = 769) IRON % SATURATION (2) (BEAKER) 28 % 20-55 (test code = 2590) [id number] 05:59:00 Test Item Value Reference Range Interpretation Comments MAGNESIUM (BEAKER) (test code = 1.7 mg/dL 1.6-2.6 627) BASIC METABOLIC [id number] 05:59:00 Test Item Value Reference Range Interpretation Comments SODIUM (BEAKER) 141 meq/L 136-145 (test code = 381) POTASSIUM (BEAKER) 4.0 meq/L 3.5-5.1 (test code = 379) CHLORIDE (BEAKER) 110 meq/L 98-107 H (test code = 382) CO2 (BEAKER) (test 26 meq/L 22-29 code = 355) BLOOD UREA NITROGEN 11 mg/dL 7-21 (BEAKER) (test code = 354) CREATININE (BEAKER) 0.62 mg/dL 0.57-1.25 (test code = 358) GLUCOSE RANDOM 97 mg/dL 70-105 (BEAKER) (test code = 652) CALCIUM (BEAKER) 8.4 mg/dL 8.4-10.2 (test code = 697) EGFR (BEAKER) (test 99 mL/min/1.73 ESTIMA CHIKIS GFR IS code = 1092) sq m NOT ACCURATE CREATININE CLEARANCE IN PREDICTING GLOMERULAR FILTRATION RATE . ESTIMATED GFR I S NOT APPLICABLE FOR DIALYSIS PATIEN TS. Specimen slightly ictericLIPID [id number] 05:59:00 Test Item Value Reference Range Interpretation Comments TRIGLYCERIDES (BEAKER) (test code = 64 mg/dL 540) CHOLESTEROL (BEAKER) (test code = 142 mg/dL 631) HDL CHOLESTEROL (BEAKER) (test code 44 mg/dL = 976) LDL CHOLESTEROL CALCULATED (BEAKER) 85 mg/dL (test code = 633) Triglyceride Reference Range: Low Risk <150 Borderline 150-199 High Risk 200-499 Very High Risk >=500Cholesterol Reference Range: Low Risk <200 Borderline 200-239 High Risk >240HDL Cholesterol Reference Range: Low Risk >=60 High Risk <40LDL Cholesterol Reference Range: Optimal <100 Near Optimal 100-129 Borderline 130-159 High 160-189 Very High >=190 Specimen slightly ictericHEPATIC FUNCTION [id number] 05:59:00 Test Item Value Reference Range Interpretation Comments TOTAL PROTEIN (BEAKER) (test code = 6.1 gm/dL 6.0-8.3 770) ALBUMIN (BEAKER) (test code = 1145) 3.2 g/dL 3.5-5.0 L BILIRUBIN TOTAL (BEAKER) (test code 2.5 mg/dL 0.2-1.2 H = 377) BILIRUBIN DIRECT (BEAKER) (test 1.2 mg/dL 0.1-0.5 H code = 706) ALKALINE PHOSPHATASE (BEAKER) (test 130 U/L 40-150 code = 346) AST (SGOT) (BEAKER) (test code = 47 U/L 5-34 H 353) ALT (SGPT) (BEAKER) (test code = 41 U/L 6-55 347) Specimen slightly [id number] 05:59:00 Test Item Value Reference Range Interpretation Comments LIPASE (BEAKER) (test code = 749) 35 U/L 8-78 Specimen slightly ictericPROTHROMBIN [id number] 05:58:00 Test Item Value Reference Range Interpretation Comments PROTIME (BEAKER) (test code = 15.9 seconds 11.9-14.2 H 759) INR (BEAKER) (test code = 370) 1.3 <=5.9 Effective 09/06/2018: PT Reference Range ChangeNew: 11.9-14.2 Previous: 11.7- 14.7RECOMMENDED COUMADIN/WARFARIN INR THERAPY RANGESSTANDARD DOSE: 2.0-3.0 Includes: PROPHYLAXIS for venous thrombosis, systemic embolization; TREATMENT for venous thrombosis and/or pulmonary embolus.HIGH RISK: Target INR is2.5-3.5 for patients wiht mechanical heart valves.CBC W/PLT COUNT & AUTO [id number] 05:37:00 Test Item Value Reference Range Interpretation Comments WHITE BLOOD CELL COUNT (BEAKER) 2.4 K/ L 3.5-10.5 L (test code = 775) RED BLOOD CELL COUNT (BEAKER) 3.39 M/ L 3.93-5.22 L (test code = 761) HEMOGLOBIN (BEAKER) (test code = 9.9 GM/DL 11.2-15.7 L 410) HEMATOCRIT (BEAKER) (test code = 31.8 % 34.1-44.9 L 411) MEAN CORPUSCULAR VOLUME (BEAKER) 93.8 fL 79.4-94.8 (test code = 753) MEAN CORPUSCULAR HEMOGLOBIN 29.2 pg 25.6-32.2 (BEAKER) (test code = 751) MEAN CORPUSCULAR HEMOGLOBIN CONC 31.1 GM/DL 32.2-35.5 L (BEAKER) (test code = 752) RED CELL DISTRIBUTION WIDTH 15.4 % 11.7-14.4 H (BEAKER) (test code = 412) PLATELET COUNT (BEAKER) (test code 38 K/CU MM 150-450 L = 756) MEAN PLATELET VOLUME (BEAKER) 10.2 fL 9.4-12.3 (test code = 754) NUCLEATED RED BLOOD CELLS (BEAKER) 0 /100 WBC 0-0 (test code = 413) NEUTROPHILS RELATIVE PERCENT 57 % (BEAKER) (test code = 429) LYMPHOCYTES RELATIVE PERCENT 27 % (BEAKER) (test code = 430) MONOCYTES RELATIVE PERCENT 10 % (BEAKER) (test code = 431) EOSINOPHILS RELATIVE PERCENT 5 % (BEAKER) (test code = 432) BASOPHILS RELATIVE PERCENT 1 % (BEAKER) (test code = 437) NEUTROPHILS ABSOLUTE COUNT 1.38 K/ L 1.56-6.13 L (BEAKER) (test code = 670) LYMPHOCYTES ABSOLUTE COUNT 0.65 K/ L 1.18-3.74 L (BEAKER) (test code = 414) MONOCYTES ABSOLUTE COUNT (BEAKER) 0.24 K/ L 0.24-0.36 (test code = 415) EOSINOPHILS ABSOLUTE COUNT 0.12 K/ L 0.04-0.36 (BEAKER) (test code = 416) BASOPHILS ABSOLUTE COUNT (BEAKER) 0.02 K/ L 0.01-0.08 (test code = 417) IMMATURE GRANULOCYTES-RELATIVE 0 % 0-1 PERCENT ([facility]) (test code = 2801) POCT-HEMOGLOBIN [id number] 06:12:00 Test Item Value Reference Range Interpretation Comments POC-HEMOGLOBIN METER 8.6 g/dL 12.0-15.[address] [facility] [address] ([facility]) (test code = [place] [address] 1539)
--- OUTSIDE RECORDS SUMMARY | 2019-08-28 21:32 | XMS REPORT | Summary of Care ---
:1960 Author Organization [facility] - Health Address [address] [place] [address] Care Team Providers Name Role Phone Madhu Miranda MD Primary Care Provider [phone] Reason for Visit Reason Comments Transition Of Care Encounter Details Date Type Department Care Team Description 08/14/2019 [facility] [address] [address] Allergies Active Allergy Reactions Severity Noted Date Comments Morphine Anaphylaxis, Shortness of High 06/30/2016 Th roat closes, tongue Breath, Swelling swelling documented as of this encounter (statuses as of 08/14/2019) Medications Medication Sig Dispensed Refills Start Date End Date Status lactulose 10 gram/15 Take 30 mL by 1800 mL 0 08/11/201904/2019 Active mL oral mouth 2 (two) solutionIndications: times daily for Cirrhosis of liver 30 days. without ascites, unspecified hepatic cirrhosis type acetaminophen-codeine Take 1 tablet by 30 tablet 0 08/11/2019 Active 300-30 mg mouth every 4 tabletIndications: (four) hours as Cirrhosis of liver needed for Pain without ascites, (scale 4-6). unspecified hepatic cirrhosis type pantoprazole 40 mg EC Take 1 tablet by 30 tablet 0 08/11/2019 09/10/2019 Active tabletIndications: mouth daily for Intractable nausea and 30 days. vomiting documented as of this encounter (statuses as of 08/14/2019) Active Problems Problem Noted Date SBO (small bowel obstruction) 08/10/2019 Intractable nausea and vomiting 08/09/2016 Morbid obesity with body mass index of 40.0-49.9 08/07 Morbid obesity with body mass index of 50 or higher Nausea & vomiting 08/07/2016 documented as of this encounter (statuses as of 08/14/2019) Immunizations Name Administration Dates Next Due Influenza [...] of this encounter Last Filed Vital Signs Not on filedocumented in this encounter Plan of Treatment Health Maintenance Due Date Last Done Comments HEPATITIS C (HCV) SCREEN 1960 PNEUMOCOCCAL 0-64 YEARS COMBINED SERIES (1 of - 1967 PPSV23) DTaP,Tdap,and Td Vaccines (1 - Tdap) 1972 PAP SMEAR 1982 Breast Cancer Screening (MAMMOGRAM) 2001 COLONOSCOPY 2011 Zoster Recombinant Vaccine (SHINGRIX) (1 of 2) 2011 INFLUENZA VACCINE Completed 08/11/2019 documented as of this encounter Results Not on filedocumented in this encounter Insurance Payer Benefit Plan / Subscriber ID Effective Phone Address T ype Group Dates [facility] [id number] 2019-[place] [phone] [address] [employer] [facility] [phone] [place] [address] documented as of this encounter
[2019-08-28] MEDS ORDERED: HYDROCODONE/APAP 7.5/325 MG TAB ONE (23:41)
--- NOTE | 2019-08-29 00:22 | EDPHYS ---
Physician Documentation [facility] Name: Zenaida Goss Age: 59 yrs Sex: Female : 1960 Arrival Date: 08/28/2019 Time: 21:31 Bed 12 Private MD: ED Physician Jozef Youssef HPI: 08/27 23:30 This 59 yrs old Female presents to ER via Ambulatory with complaints of Knee cp Pain. 23:30 The patient presents with pain. cp 23:30 The complaints affect the medial aspect of right knee and right knee. Onset: The cp symptoms/episode began/occurred 2 week(s) ago. 23:30 Associated signs and symptoms: Pertinent positives: swelling, Pertinent negatives calf cp tenderness, fever, numbness, warmth. Historical: - Allergies: 23:49 Morphine (Anaphylaxis); lp1 - Home Meds: 23:49 Lactulose Oral [Active]; pantoprazole Oral [Active]; Tylenol #3 Oral [Active]; lp1 - PMHx: 23:49 Anemia; Cirrhosis; fatty liver; Pancreatitis; varices; lp1 - PSHx: 23:49 Cholecystectomy; Appendectomy; lp1 - Immunization history:: Adult Immunizations up to date. - Social history:: Smoking status: Patient denies any tobacco usage or history of. ROS: 23:35 Constitutional: Negative for body aches, chills, fever, poor PO intake. cp 23:35 Eyes: Negative for injury, pain, redness, and discharge. cp 23:35 ENT: Negative for ear pain, sore throat. 23:35 Cardiovascular: Negative for chest pain, palpitations. 23:35 Respiratory: Negative for cough, shortness of breath, wheezing. 23:35 Abdomen/GI: Negative for abdominal pain, nausea, vomiting, and diarrhea. 23:35 MS/extremity: Positive for pain, swelling, tenderness, of the right knee, Negative for injury or acute deformity, paresthesias. 23:35 Skin: Negative for rash. 23:35 Neuro: Negative for weakness. 23:35 All other systems are negative. Exam: 23:40 Constitutional: The patient appears in no acute distress, alert, awake, non-toxic, well cp developed, well nourished, obese. 23:40 Musculoskeletal/extremity: ROM: limited passive range of motion due to pain, in the cp right knee, Perfusion: the extremity is normally perfused throughout, Sensation intact. Joints: All joints are normal except the right knee displays pain at rest, painful range of motion, tenderness, Weight bearing: able to fully bear weight, DVT Exam: No signs of deep vein thrombosis. 23:40 Skin: overlying knee intact with no signs of cellulitis or rash. Vital Signs: 22:18 BP 122 / 47; Pulse 75; Resp 21; Temp 98.0(O); Pulse Ox 98% on R/A; Weight 115.67 kg; vc Height 5 ft. 3 in. (160.02 cm); Pain 10/10; 22:18 Body Mass Index 45.17 (115.67 kg, 160.02 cm) vc MDM: 21:58 Patient medically screened. cp 23:59 Test interpretation: by ED physician or midlevel provider: xrays of right knee negative cp for fracture. 08/28 00:18 Data reviewed: vital signs, nurses notes, radiologic studies, plain films, and as a cp result, I will discharge patient. 00:18 Counseling: I had a detailed discussion with the patient and/or guardian regarding: the cp historical points, exam findings, and any diagnostic results supporting the discharge/admit diagnosis, radiology results, the need for outpatient follow up, a orthopedic surgeon, to return to the emergency department if symptoms worsen or persist or if there are any questions or concerns that arise at home. 08/27 23:30 Order name: XRAY Knee RIGHT 3 view cp Administered Medications: 08/27 23:38 Drug: Hydrocodone-Acetaminophen (7.5 mg-325 mg) 1 tabs {Note: RASS 0.} Route: PO; lp1 08/28 00:37 Follow up: Response: No adverse reaction lp1 Disposition: 00:30 Chart complete. cp 06:59 Co-signature as Attending Physician, Jozef Youssef MD I agree with the assessment and tw4 plan of care. Disposition: 08/29/19 00:19 Discharged to Home. Impression: Pain in right knee. - Condition is Stable. - Discharge Instructions: Joint Pain, Knee Pain. - Prescriptions for Tylenol- Codeine #3 300-30 mg Oral Tablet - take 2 tablets by ORAL route every 8 hours As needed; 20 tablet. - Medication Reconciliation Form, Thank You Letter, Antibiotic Education, Prescription Opioid Use form. - Follow up: Gm Singh MD; When: as scheduled; Reason: Recheck today's complaints. - Problem is an ongoing problem. - Symptoms have improved. Signatures: Dispatcher [employer] EDKacy Barber, RN RN lp1 Homero Jackson PA PA cp Jozef Youssef MD MD tw4 Corrections: (The following items were deleted from the chart) 00:37 00:19 08/29/2019 00:19 Discharged to Home. Impression: Pain in right knee. Condition is lp1 Stable. Forms are Medication Reconciliation Form, Thank You Letter, Antibiotic Education, Prescription Opioid Use. Follow up: Dr. Gm Singh; When: as scheduled; Reason: Recheck today's complaints. Problem is an ongoing problem. Symptoms have improved. cp
--- NOTE | 2019-08-29 00:22 | ER ---
Nurse's Notes [facility] Name: Zenaida Goss Age: 59 yrs Sex: Female : 1960 Arrival Date: 08/28/2019 Time: 21:31 Bed 12 Private MD: Diagnosis: Pain in right knee Presentation: 08/27 22:18 Chief complaint: Patient states: "For the last two weeks my right knee has been aching, vc its getting worse and now radiates to my ankle. I have an appointment on September 20 with an orthopedic doctor but I couldn't take the pain anymore.". Coronavirus screen: Proceed with normal triage. Ebola Screen: No symptoms or risks identified at this time. Initial Sepsis Screen: Does the patient meet any 2 criteria? RR > 20 per min. No. Patient's initial sepsis screen is negative. Does the patient have a suspected source of infection? No. Patient's initial sepsis screen is negative. Risk Assessment: Do you want to hurt yourself or someone else? Patient reports no desire to harm self or others. Onset of symptoms is unknown. Care prior to arrival: Medication(s) given: unknown pain medicine. 22:18 Method Of Arrival: Ambulatory vc 22:18 Acuity: TANK 3 vc Historical: - Allergies: 23:49 Morphine (Anaphylaxis); lp1 - Home Meds: 23:49 Lactulose Oral [Active]; pantoprazole Oral [Active]; Tylenol #3 Oral [Active]; lp1 - PMHx: 23:49 Anemia; Cirrhosis; fatty liver; Pancreatitis; varices; lp1 - PSHx: 23:49 Cholecystectomy; Appendectomy; lp1 - Immunization history:: Adult Immunizations up to date. - Social history:: Smoking status: Patient denies any tobacco usage or history of. Screenin:48 Abuse screen: Denies threats or abuse. Denies injuries from another. Nutritional lp1 screening: No deficits noted. Tuberculosis screening: No symptoms or risk factors identified. Fall Risk None identified. Assessment: 23:47 General: Appears uncomfortable, Behavior is calm, cooperative. Pain: Complains of pain lp1 in lateral aspect of right knee, posterior aspect of right knee, medial aspect of right knee and right knee Pain radiates to right ankle Pain currently is 7 out of 10 on a pain scale. Quality of pain is described as aching, Aggravated by increased activity. Neuro: Level of Consciousness is awake, alert, obeys commands. Cardiovascular: Patient's skin is warm and dry. Respiratory: Respiratory effort is even, unlabored. GI: Abdomen is obese. : No signs and/or symptoms were reported regarding the genitourinary system. EENT: No signs and/or symptoms were reported regarding the EENT system. Derm: Skin is pink, warm \\T\\ dry. Musculoskeletal: Circulation, motion, and sensation intact. Range of motion: intact in all extremities, Reports pain in right knee. Vital Signs: 22:18 BP 122 / 47; Pulse 75; Resp 21; Temp 98.0(O); Pulse Ox 98% on R/A; Weight 115.67 kg; vc Height 5 ft. 3 in. (160.02 cm); Pain 10/10; 22:18 Body Mass Index 45.17 (115.67 kg, 160.02 cm) vc ED Course: 21:31 Patient arrived in ED. cl3 21:55 Homero Jacksno PA is PHCP. cp 21:55 Jozef Youssef MD is Attending Physician. cp 22:22 Triage completed. vc 22:22 Karie Corbin, ERIC is Primary Nurse. vc 23:48 Patient did not have IV access during this emergency room visit. lp1 23:49 Patient has correct armband on for positive identification. lp1 23:49 Arm band placed on. lp1 08/28 00:01 XRAY Knee RIGHT 3 view In Process Unspecified. EDMS 00:19 Gm Singh MD is Referral Physician. cp 00:37 No provider procedures requiring assistance completed. lp1 Administered Medications: 08/27 23:38 Drug: Hydrocodone-Acetaminophen (7.5 mg-325 mg) 1 tabs {Note: RASS 0.} Route: PO; lp1 08/28 00:37 Follow up: Response: No adverse reaction lp1 Outcome: 00:19 Discharge ordered by . cp 00:37 Discharged to home ambulatory. lp1 00:37 Condition: good 00:37 Discharge instructions given to patient, Instructed on discharge instructions, follow up and referral plans. Demonstrated understanding of instructions, follow-up care, Prescriptions given X 1. 00:37 Patient left the ED. lp1 Signatures: Dispatcher [employer] EDID Kacy Barnes RN RN lp1 Homero Jackson PA PA cp Lewis, Charde cl3 Karie Corbin RN RN vc Corrections: (The following items were deleted from the chart) 08/27 23:50 23:47 Pain: Complains of pain in lateral aspect of right knee, posterior aspect of lp1 right knee, medial aspect of right knee and right knee Pain currently is 7 out of 10 on a pain scale. Quality of pain is described as aching, Aggravated by increased activity, lp1
[2019-08-29 00:42] VITALS: BP 122/47; TEMP 98; O2SAT 98
--- NOTE | 2019-08-29 08:28 | RAD REPORT ---
EXAM DESCRIPTION: RAD - Knee Right 3 View - 08/29/2019 12:00 am CLINICAL HISTORY: PAIN COMPARISON: No comparisons FINDINGS: No acute fracture or dislocation seen. No joint effusion evident.
== END 2019-08-29 00:37 | disposition home or self-care (01) ==
LOC: ER 21:28
DX: M25.561 Pain in right knee (principal); K74.60 Unspecified cirrhosis of liver; K76.0 Fatty (change of) liver, not elsewhere classified; Z88.5 Allergy status to narcotic agent
CPT/HCPCS: 99283

== ENCOUNTER 2019-09-15 01:26 | Emergency (ER) | payer OTHER ==
--- OUTSIDE RECORDS SUMMARY | 2019-09-15 01:29 | XMS REPORT | Clinical Summary ---
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
--- OUTSIDE RECORDS SUMMARY | 2019-09-15 01:31 | XMS REPORT | Clinical Summary ---
:1960 Author Organization [facility] Address [address] [place] [address] Care Team Providers Name Role Phone Ruth [...] MD 10/02/2018 Surgery Gastroenterology Hunter Bernstein UPPER END JUAN DAVID Oliva MD 09/30/2018 - Hospital General Internal Hiro, [place] Epigastric abdominal pain; 10/03/2018 Encounter Medicine MD Jocelyn Increased ammonia level; Jennifer Lora Other cirrhosis of liver (HCC); Nicole Bartholomew, H/O acute pa ncreatitis; Vitamin B12 deficiency Diane Holley MD Adio, Titilola R., MD 09/30/2018 Telephone Internal Medicine Hiro, [place] Abdominal Pain MD Jocelyn after 09/14/2018 Social History Tobacco Use Types [...] are i n the results section. after 09/14/2018 Results EKG-SCANNED (10/04/2018 12:20 PM CDT) Narrative [...] MD Report Verified Date/Time:10/03/2018 07:50:47 Reading Location: [facility] Reading Room Procedure Note Interface, External Ris [...] WBC 2.4 (L) 3.5 - 10.5 K/L [facility] RBC 3.26 (L) 3.93 - 5.22 M/L [facility] Hemoglobin 9.6 (L) 11.2 - 15.7 GM/DL [facility] Hematocrit 30.8 (L) 34.1 - 44.9 % [facility] MCV 94.5 79.4 - 94.[address] [facility] MCH 29.4 25.6 - 32.[address] [facility] MCHC 31.2 (L) 32.2 - 35.5 GM/DL [facility] RDW 15.2 (H) 11.7 - 14.4 % [facility] Platelets 38 (L) 150 - 450 K/CU MM [facility] MPV 10.3 9.4 - 12.[address] [facility] nRBC 0 0 - 0 /[address] [facility] % Neutros 57 % [facility] % Lymphs 26 % [facility] % Monos 11 % [facility] % Eos 6 % [facility] % Baso 0 % [facility] # Neutros 1.35 (L) 1.56 - 6.13 K/L [facility] # Lymphs 0.61 (L) 1.18 - 3.74 K/L [facility] # Monos 0.26 0.24 - 0.36 K/L [facility] # Eos 0.15 0.04 - 0.36 K/L [facility] # Baso 0.01 0.01 - 0.08 K/L [facility] Immature Granulocytes-Relative 0 0 - 1 % C [facility] Specimen Blood Performing Organization Address City/[facility] Cent[facility]ode Phone Number [address] [address] [place] Prothrombin time/INR (10/03/2018 5:45 AM CDT)Only the most recent of3 results within the time period is included. Protime 15.2 (H) 11.9 - 14.2 seconds [facility] INR 1.3 <=5.9 [facility] Specimen Blood Narrative Performed At Effective 09/06/2018: PT Reference Range [facility] Change New: 11.9-14.2Previous: 11.7-14.7 RECOMMENDED COUMADIN/WARFARIN INR THERAPY RANGES STANDARD DOSE: 2.0-3.0Includes: PROPHYLAXIS for venous thrombosis, systemic embolization; TREATMENT for venous thrombosis and/or pulmonary embolus. HIGH RISK: Target INR is 2.5-3.5 for patients wiht mechanical heart valves. Performing Organization Address City/State/Zipcode Phone Number [address] [address] [place] Magnesium (10/03/2018 5:45 AM CDT)Only the most recent of3 resultswithin the time period is included. Magnesium 1.6 1.6 - 2.6 mg/dL [facility] Specimen Blood Performing Organization Address City/[facility]/Zipcode Phone Number [facility] [address] [place] [address] [place] Hepatic function panel (10/03/2018 5:45 AM CDT)Only the most recent of3 results within the time period is included. Protein, Total 5.9 (L) 6.0 - 8.3 gm/dL [facility] Albumin 3.1 (L) 3.5 - 5.0 g/dL [facility] Total Bilirubin 2.0 (H) 0.2 - 1.2 mg/dL [facility] Bilirubin, Direct 1.0 (H) 0.1 - 0.5 mg/dL [facility] Alkaline Phosphatase 123 40 - 150 U/L [facility] AST 45 (H) 5 - 34 U/L [facility] ALT 35 6 - 55 U/L [facility] Specimen Blood Narrative Performed At Specimen slightly icteric [facility] Performing Organization Address City/[facility]/Zipcode Phone Number [facility] [address] [place] [address] [place] Basic metabolic panel (10/03/2018 5:45 AM CDT)Only the most recent of3 results within the time period is included. Sodium 138 136 - 145 meq/L [facility] Potassium 4.0 3.5 - 5.1 meq/L [facility] Chloride 107 98 - 107 meq/L [facility] CO2 25 22 - 29 meq/L [facility] BUN 10 7 - 21 mg/dL [facility] Creatinine 0.65 0.57 - 1.25 mg/dL [facility] Glucose 99 70 - 105 mg/dL [facility] Calcium 8.2 (L) 8.4 - 10.2 mg/dL [facility] EGFR 94Comment: ESTIMATED GFR IS mL/min/1.73 sq m [facility] NOT ACCURATE CREATININE ME DICAL CENTER CLEARANCE IN PREDICTING GLOMERULAR FILTRATION RATE. ESTIMATED GFR IS NOT APPLICABLE FOR DIALYSIS PATIENTS. Specimen Blood Narrative Performed At Specimen slightly icteric [facility] Performing Organization Address City/State/Zipcode Phone Number [facility] [address] [place] [address] [place] REPORT OF PROCEDURE - ENDOSCOPY URL (10/02/2018 5:07 PM CDT) Narrative Performed At This result has an attachment that is no t available. Manual Differential (10/02/2018 4:37 AM CDT) % Neutros 70 % [facility] % Lymphs 21 % [facility] % Monos 9 % [facility] # Neutros 1.40 (L) 1.56 - 6.13 K/ul [facility] # Lymphs 0.42 (L) 1.18 - 3.74 K/ul [facility] # Monos 0.18 (L) 0.24 - 0.36 K/uL [facility] Total Counted [address] [facility] RBC Morphology Normal [facility] WBC Morphology Normal [facility] Platelet Morph[facility] Normal [facility] Artifact Present [facility] Platelet Conc Decreased [facility] Specimen Blood Narrative Performed At Received comment: [facility] User comments: Slide comments: Performing Organization Address City/State/Zipcode Phone Number [address] [address] [place] Iron, TIBC, % sat. (without ferritin) (10/01/2018 5:09 AM CDT) Iron 81.0 40.0 - 160.0 ug/dL [facility] TIBC 291 250 - 450 ug/dL [facility] Iron % Saturation 28 20 - 55 % [facility] Specimen Blood Performing Organization Address City/State/Zipcode Phone Number [address] [address] [place] Lipase (10/01/2018 5:09 AM CDT) Lipase 35 8 - 78 U/L [facility] Specimen Blood Narrative Performed At Specimen slightly icteric [facility] Performing Organization Address City/State/Zipcode Phone Number [address] [address] [place] Folate, Serum (10/01/2018 5:09 AM CDT) Folate 11.3 >=7.0 ng/mL [facility] Specimen Blood Performing Organization Address City/[facility]/Zipcode Phone Number [address] [address] [place] Ferritin (10/01/2018 5:09 AM CDT) Ferritin 21 5 - 275 ng/mL [facility] Specimen Blood Performing Organization Address City/State/Zipcode Phone Number [address] [address] [place] Vitamin B12 (10/01/2018 5:09 AM CDT) Vitamin B12 178 (L) 213 - 816 pg/mL [facility] Specimen Blood Performing Organization Address City/State/Zipcode Phone Number [address] [place] [address] [place] Lipid panel (10/01/2018 5:09 AM CDT) Triglycerides 64 mg/dL [facility] Cholesterol 142 mg/dL [facility] HDL 44 mg/dL [facility] LDL Calculated 85 mg/dL [facility] Specimen Blood Narrative Performed At Triglyceride Reference Range: [facility] Low Risk <150 [id number] High Risk 200-499 Very High Risk>=500 Cholesterol Reference Range: Low Risk <200 [id number] High Risk>240 HDL Cholesterol Reference Range: Low Risk >=60 High Risk <40 LDL Cholesterol Reference Range: Optimal<100 Near [id number] Very High >=190 Specimen slightly icteric Performing Organization Address City/State/Zipcode Phone Number [address] [address] [place] after 09/14/2018 Advance Directives For more information, please contact:[address] [phone] Code Status Date Activated Date Inactivated Comments Full Code 09/30/2018 8:45 PM 10/03/2018 7:37 PM This code status was determined by: Patient
--- OUTSIDE RECORDS SUMMARY | 2019-09-15 01:34 | XMS REPORT | Continuity of Care Document ---
:1960 Author Organization [facility] t Address [address] [place] [address] [place] [id number] Care Team Providers Name Role Phone Ruth HENSLEY Primary Care Physician Nasrin REYES, Harley Attending Clinician Unavailable Alisha HENSLEY Attending Clinician Jocelyn Bosch MD Attending Clinician Nicole Rodriguez MD Attending Clinician Emily Holley MD Attending Clinician Vilma Bates MD Attending Clinician Debby Sheffield MD Attending Clinician Pj Bernstein MD Attending Clinician JOCELYN BOSCH Attending Clinician Unavailable JUDIT ESCALONA Attending Clinician Unavailable Alisha HENSLEY Admitting Clinician JOCELYN BOSCH Admitting Clinician Unavailable JUDIT ESCALONA Admitting Clinician Unavailable Payers Payer Name Policy Type Policy Number Effective Date Expiration Date S ource [id number] xxxxxxxxxxxx 2017 [place] CHOICE 00:00:00 [employer] PPO/FEDERAL EMPL PPOxxxxxxxxxxx 2017-Pres entPPO Problems Condition Condition Condition Status Onset Resolution Last Treating Co mments Source Name Details Category Date Date Treatment Clinician Date Epigastric Epigastric Disease Active [facility] abdominal abdominal 6-22 [facility] 00 Center Other Other Disease Active [facility] cirrhosis cirrhosis 6-22 [facility] - of liver of liver 00:00: Medica l 00 Center Increased Increased Disease Active [facility] ammonia ammonia 6-22 [facility] level level 00:00: Medical 00 Center Allergies, Adverse Reactions, Alerts Allergy Allergy Status Severity Reaction(s) Onset Inactive Treating Comm ents Source Name Type Date Date Clinician Latex Propensi Active Rash 2016-[address] [facility] [address] ty to 2-18 [facility] - adverse 00:00: Medical reaction 00 Center s Morphine Propensi Active Shortness Of Throat [facility] ty to Breath, 3-22 closes, [facility] - adverse Swelling 00:00: tongue Medical reaction 00 swelling Center s Social History Social Habit Start Date Stop Date Quantity Comments Source Sex Assigned At [facility] Smoking Status Start Date Stop Date Source Never smoker [facility] edical [place] Medications Ordered Filled Start Stop Current Ordering Indication Dosage Frequency Signature Comments Components Source Medication Medication Date Date Medication? Clinician (SIG) Name Name pantoprazol 2019- No 40mg Q.5D Take [address] [facility] e 6-25 07-25 tablet (40 [facility] - (PROTONIX) 00:00: 23:59 mg total) M edical 40 MG 00 :00 by mouth 2 Center tablet (two) times daily for 30 days. cyanocobala 2019- No 1000ug QD Take [address] min 6-25 07-25 tablet [facility] - (VITAMIN 00:00: 23:59 (1,000 mcg Me dical B-12) 1000 00 :00 total) by Cent er MCG tablet mouth daily for 30 days. lactulose Yes 10g Q.5D Take [address] [facility] (CEPHULAC) 6-22 by mouth 2 Lesly es - 10 gram 21:43: (two) Medical packet 25 times Center daily . rifAXIMin Yes hepatic 550mg Q.5D Take [address] [address] 550 mg Tab - encephalopa mg by L [facility] - 21:43: thy mouth 2 Medical 25 (two) Center times daily. pantoprazol No 20mg QD Take [address] [facility] e 09-30 by mouth [facility] - (PROTONIX) 20:40: 00:00 daily. Medi molly 20 MG 28 :00 Center tablet ibuprofen No 100mg Take [address] (ADVIL,MOTR 09-30 mg by [facility] - [place]) 100 MG 20:40: 00:00 mouth Medic al tablet 21 :00 every 6 Center (six) hours as needed for Fever. Vital Signs Vital Name Observation Time Observation Value Comments Source Systolic blood 2018-10-03 15:35:00 117 mm[Hg] [facility] Diastolic blood 2018-10-03 15:35:00 59 mm[Hg] S [facility] Heart rate 2018-10-03 15:35:00 90 /min [facility] Body temperature 2018-10-03 15:35:00 37.17 Sandee [facility] Respiratory rate 2018-10-03 15:35:00 18 /min [facility] Oxygen saturation in 2018-10-03 15:35:00 92 /min [facility] Arterial blood by Medical Ce nter Pulse oximetry Body height 2018-09-30 19:57:00 160 cm [facility] Body weight Measured 2018-09-30 19:57:00 116.847 kg [facility] BMI 2018-09-30 19:57:00 45.63 kg/m2 [facility] Procedures Procedure Date / Time Performed Performing Clinician Sour e REPORT OF PROCEDURE - 2018-10-04 12:20:08 Provider, Default [facility] - ENDOSCOPY SCAN Scanning [facility] RHYTHM STRIP - SCAN 2018-10-04 12:20:06 Provider, Default [facility] Scanning [facility] XR CHEST 1 VIEW 2018-10-03 06:57:00 Oneil Thompson [facility] - PORTABLE/BEDSIDE Medical Center BASIC METABOLIC PANEL 2018-10-03 05:45:00 [facility] HEPATIC FUNCTION PANEL 2018-10-03 05:45:00 [facility]R 2018-10-03 05:45:00 [facility] 2018-10-03 05:45:00 Manpreet [facility] CBC W/PLT COUNT & AUTO 2018-10-03 05:45:[address] [facility] REPORT OF PROCEDURE - 2018-10-02 17:07:[address] [facility] ENDOS[facility] UPPER ENDOSCOPY 2018-10-02 15:00:00 [facility] 2018-10-02 15:00:[facility] BASIC METABOLIC PANEL 2018-10-02 04:37:00 [facility] HEPATIC FUNCTION PANEL 2018-10-02 04:37:00 Manpreet [facility] PROTHROMBIN TIME/INR 2018-10-02 04:37:00 Manpreet [facility] MAGNESIUM 2018-10-02 04:37:00 Manpreet [facility] CBC W/PLT COUNT & AUTO 2018-10-02 04:37:00 [facility] 2018-10-02 04:37:00 [facility] BASIC METABOLIC PANEL 2018-10-01 05:09:00 Manpreet [facility] () [facility] HEPATIC FUNCTION PANEL 2018-10-01 05:09:00 Manpreet [facility] PROTHROMBIN TIME/INR 2018-10-01 05:09:00 Manpreet [facility] MAGNESIUM 2018-10-01 05:09:00 Manpreet [facility] LIPID PANEL 2018-10-01 05:09[facility] 2018-10-01 05:09:00 [facility] VITAMIN B12 2018-10-01 05:09:00 [facility] FOLATE, SERUM 2018-10-01 05:09:00 [facility] IRON, TIBC, % SAT. 2018-10-01 05:09:00 [facility] (WITHOUT FERRITIN) [facility] F[facility] 2018-10-01 05:09:00 [facility] CBC W/PLT COUNT & AUTO 2018-10-01 05:09:00 [facility] Plan of Care Planned Activity Planned Date Details Comments Source Future Scheduled 2019-11-10 [place] VACCINE [place] [facility] 00:00:00 [code = INFLUENZA VACCINE] Future Scheduled 2011 BREAST CANCER [place] [facility] 00:00:00 SCREENING [code = BREAST CANCER SCREENING] Future Scheduled 2011 COLONOSCOPY SCRE[place]ING [place] [facility] Test 00:00:00 [code = COLONOSCOPY SCREENING] Future Scheduled 2011 SHINGLES VACCINES [place] [facility] 00:00:00 (#1) [code = SHINGLES VACCINES (#1)] Future Scheduled 1982 Screening for [facility]odist Test 00:00:00 malignant neoplasm of cervix (procedure) [code = 143660733] Encounters Start End Encounter Admission Attending Care Care Encounter Source Date/Time Date/Time Type Type Clinicians Facility Department ID 2019-08-14 2019-08-14 Transition Jocelyne Alexandra [id number] 00:00:00 00:00:00 of Care Jovanny Sotelo [id number] Brittany [id number] 2019-08-10 2019-08-11 [facility] [id number] 02:55:00 16:09:00 Encounter Wes Amin [id number] [place] [id number] [place] [id number] Results Test Description Test Time Test Comments Results Result Sourc e Comments RAD, CHEST, 1 2018-09-10 Reason for FINAL REPORT PATIENT VIEW, NON DEPT 5 exam:->SOBShou ID: [id number] 07:50:00 ld this be CLINICAL HISTORY: SOB performed at TECHNIQUE: 1 view of the the chest. COMPARISON: bedside?->Yes None IMPRESSION: There is pulmonary vascular congestion with prominent lung markings bilaterally. Subpulmonic pleural effusions cannot be excluded. The cardiomediastinal silhouette is magnified by technique. Signed: Franky Louis Verified Date/Time: 10/03/2018 07:50:47 Reading Location: [facility] Reading Room chest 1 view 2018-09-10 Interface, External [facility] portable / 5 Ris In - 10/03/2018 [facility] 07:50:00 7:52 AM CDTFINAL Medical REPORT PATIENT ID: Emeil [id number] CLINICAL HISTORY: SOB TECHNIQUE: 1 view of the chest. COMPARISON: None IMPRESSION: There is pulmonary vascular congestion with prominent lung markings bilaterally. Subpulmonic pleural effusions cannot be excluded. The cardiomediastinal silhouette is magnified by technique. Signed: Franky Louis Verified Date/Time: 10/03/2018 07:50:47 Reading Location: [facility] Reading Room Basic metabolic panel 2018-10-03 07:37:00 Test Item Value Reference Range Interpretation Comme nts Sodium (test code = 138 meq/L 952-661 1260-2) Potassium (test code = 4.0 meq/L 3.5-5.1 2823-3) Chloride (test code = 107 meq/L 98-107 2075-0) CO2 (test code = 8-9) 25 meq/L 22-29 BUN (test code = 3094-0) 10 mg/dL 7-21 Creatinine (test code = 0.65 mg/dL 0.57-1.25 2160-0) Glucose (test code = 99 mg/dL 70-105 2345-7) Calcium (test code = 8.2 mg/dL 8.4-10.2 L 00315-7) EGFR (test code = 33265-7) 94 mL/min/1.73 sq m ESTIMATED GFR IS NOT ACCURATE CREATININE ARSH CARROLL IN PREDICTING GLOMERULAR FILT RATION RATE. ESTIMATED GFR IS NOT APPLICAB LE FOR DIALYSIS PATIEN TS. SNOW (test code = SNOW) Specimen slightly icteric Lab Interpretation (test Abnormal code = 29056-3) [facility] [id number] 07:37:00 Test Item Value Reference Range Interpretation Comments Protein, Total (test code 5.9 6.0- 8.3 gm/dL L = 2885-2) Albumin (test code = 3.1 g/dL 3.5-5 L 66698-6) Total Bilirubin (test code 2.0 mg/dL 0.2-1.2 H = 1974-2) Bilirubin, Direct (test 1.0 mg/dL 0.1-0.5 H code = 1967-7) Alkaline Phosphatase (test 123 U/L 40-150 code = 6768-6) AST (test code = 1920-8) 45 U/L 5-34 H ALT (test code = 1742-6) 35 U/L 6-55 SNOW (test code = SNOW) Specimen slightly icteric Lab Interpretation (test Abnormal code = 79143-4) [facility]esium2019-06-25 07:37:00 Test Item Value Reference Range Interpretation Comments Magnesium (test code = 12436-0) 1.6 mg/dL 1.6-2.6 Lab Interpretation (test code = Normal 55753-3) [facility]2019-06-25 07:37:00 Test Item Value Reference Range Interpretation Comments MAGNESIUM (BEAKER) (test code = 1.6 mg/dL 1.6-2.6 627) BASIC METABOLIC [id number] 07:37:00 Test Item Value Reference Range Interpretation [...] DIALYSIS PATIEN TS. Specimen slightly ictericHEPATIC FUNCTION [id number] 07:37:00 Test Item Value Reference Range Interpretation [...] = 35 U/L 6-55 347) Specimen slightly ictericProthrombin time/[id number] 06:25:00 Test Item Value Reference Range Interpretation Comments Protime (test code = 15.2 11.9- 14.2 H 5902-2) seconds INR (test code = 1.3 <=5.9 6301-6) SNOW (test code = SNOW) Effective 09/06/2018: PT Reference Range ChangeNew: 11.9-14.2 Previous: 11.7-14.7 RECOMMENDED COUMADIN/WARFARIN INR THERAPY RANGESSTANDARD DOSE: 2.0-3.0 Includes: PROPHYLAXIS for venous thrombosis, systemic embolization; TREATMENT for venous thrombosis and/or pulmonary embolus.HIGH RISK: Target INR is 2.5-3.5 for patients wiht mechanical heart valves. Lab Interpretation Abnormal (test code = 75671-0) [facility] HospitalPROTHROMBIN TIME/[id number] 06:25:00 Test Item Value Reference Range Interpretation [...] is2.5-3.5 for patients wiht mechanical heart valves.CBC with platelet count + automated [id number] 06:16:00 Test Item Value Reference Range Interpretation Comments WBC (test code = 6690-2) 2.4 3.5- 10.5 K/L L RBC (test code = 789-8) 3.26 3.93- 5.22 M/L L MCHC (test code = 786-4) 31.2 32.2- 35.5 GM/DL L Hematocrit (test code = 4544-3) 30.8 % 34.1-44.9 L MCV (test code = 787-2) 94.5 fL 79.4-94.8 MCH (test code = 785-6) 29.4 pg 25.6-32.2 RDW (test code = 788-0) 15.2 % 11.7-14.4 H Platelets (test code = 777-3) 38 150- 450 K/CU MM L MPV (test code = 29642-2) 10.3 fL 9.4-12.3 nRBC (test code = 413) 0 0- 0 /100 WBC % Neutros (test code = 429) 57 % % Lymphs (test code = 430) 26 % % Monos (test code = 431) 11 % % Eos (test code = 432) 6 % % Baso (test code = 437) 0 % # Neutros (test code = 670) 1.35 1.56- 6.13 K/L L # Lymphs (test code = 414) 0.61 1.18- 3.74 K/L L # Monos (test code = 415) 0.26 0.24- 0.36 K/L # Eos (test code = 416) 0.15 0.04- 0.36 K/L # Baso (test code = 417) 0.01 0.01- 0.08 K/L Immature Granulocytes-Relative 0 % 0-1 (test code = 2801) Lab Interpretation (test code = Abnormal 22585-1) [facility] W/PLT COUNT & AUTO [id number] 06:16:00 Test Item Value Reference Range Interpretation [...] 0-1 PERCENT (BEAKER) (test code = 2801) Manual [id number] 09:41:00 Test Item Value Reference Range Interpretation Comments % Neutros (test code = 70 % 2816) % Lymphs (test code = 21 % 281) % Monos (test code = 9 % 2818) # Neutros (test code = 1.40 K/ul 1.56-6.13 L 2830) # Lymphs (test code = 0.42 K/ul 1.18-3.74 L 2831) # Monos (test code = 0.18 K/uL 0.24-0.36 L 2832) Total Counted (test code 100 = 1351) RBC Morphology (test code Normal = 762) WBC Morphology (test code Normal = 487) Platelet Morphology (test Normal code = 486) Artifact (test code = Present 3432) Platelet Conc (test code Decreased = 3438) SNOW (test code = NSOW) Received comment: User comments: Slide comments: Lab Interpretation (test Abnormal code = 88732-5) [facility](CELLAVISION MANUAL DIFF)2018-10-02 09:41:00 Test Item Value Reference [...] = 3438) Received comment: User comments: Slide comments:[id number] 05:58:00 Test Item Value Reference Range Interpretation Comments MAGNESIUM (BEAKER) (test code = 1.6 mg/dL 1.6-2.6 627) BASIC METABOLIC [id number] 05:58:00 Test Item Value Reference Range Interpretation [...] DIALYSIS PATIEN TS. Specimen slightly ictericHEPATIC FUNCTION [id number] 05:58:00 Test Item Value Reference Range Interpretation [...] 39 U/L 6-55 347) Specimen slightly ictericPROTHROMBIN TIME/[id number] 05:26:00 Test Item Value Reference Range Interpretation [...] mechanical heart valves.CBC W/PLT COUNT & AUTO [id number] 05:20:00 Test Item Value Reference Range Interpretation [...] /100 WBC 0-0 (test code = 413) Vitamin [id number] 06:57:00 Test Item Value Reference Range Interpretation Comments Vitamin B12 (test code = 2132-9) 178 pg/mL 213-816 L Lab Interpretation (test code = Abnormal 29338-5) [facility] HospitalFerritin2019-06-23 06:57:00 Test Item Value Reference Range Interpretation Comments Ferritin (test code = 2276-4) 21 ng/mL 5-275 Lab Interpretation (test code = Normal 54478-2) [facility] HospitalFolate, [id number] 06:57:00 Test Item Value Reference Range Interpretation Comments Folate (test code = 2284-8) 11.3 ng/mL >=7.0 Lab Interpretation (test code = Normal 85507-3) [facility] HospitalVITAMIN [id number] 06:57:00 Test Item Value Reference Range Interpretation Comments VITAMIN B12 (BEAKER) (test code = 178 pg/mL 213-816 L 774) [id number] 06:57:00 Test Item Value Reference Range Interpretation Comments FERRITIN (BEAKER) (test code = 361) 21 ng/mL 5-275 FOLATE, [id number] 06:57:00 Test Item Value Reference Range Interpretation Comments FOLATE (BEAKER) (test code = 362) 11.3 ng/mL >=7.0 Lipid [id number] 05:59:00 Test Item Value Reference Range Interpretation Comments Triglycerides (test 64 mg/dL code = 2571-8) Cholesterol (test code 142 mg/dL = 2093-3) HDL (test code = 44 mg/dL 5-9) LDL Calculated (test 85 mg/dL code = 55380-3) SNOW (test code = SNOW) Triglyceride Reference Range: Low Risk <150 Borderline 150-199 High Risk 200-499 Very High Risk >=500 Cholesterol Reference Range: Low Risk <200 Borderline 200-239 High Risk >240 HDL Cholesterol Reference Range: Low Risk >=60 High Risk <40 LDL Cholesterol Reference Range: Optimal <100 Near Optimal 100-129 Borderline 130-159 High 160-189 Very High >=190 Specimen slightly icteric [facility] HospitalLipase2019-06-[facility] 05:59:00 Test Item Value Reference Range Interpretation Comments Lipase (test code = 35 U/L 8-78 3040-3) SNOW (test code = SNOW) Specimen slightly icteric Lab Interpretation (test Normal code = 43274-5) [facility], TIBC, % sat. (without ferritin)2018-10-01 05:59:00 Test Item Value Reference Range Interpretation Comments Iron (test code = 2498-4) 81.0 ug/dL 40-160 TIBC (test code = 2500-7) 291 ug/dL 250-450 Iron % Saturation (test code = 28 % 20-55 2502-3) Lab Interpretation (test code = Normal 99601-7) [facility], TIBC, % SAT. (WITHOUT FERRITIN)2018-10-01 05:59:00 Test Item Value Reference Range Interpretation Comments IRON (BEAKER) (test code = 547) 81.0 ug/dL 40.0-160.0 TOTAL IRON BINDING CAPACITY 291 ug/dL 250-450 (BEAKER) (test code = 769) IRON % SATURATION (2) (BEAKER) 28 % 20-55 (test code = 2590) [id number] 05:59:00 Test Item Value Reference Range Interpretation Comments MAGNESIUM (BEAKER) (test code = 1.7 mg/dL 1.6-2.6 627) BASIC METABOLIC [id number] 05:59:00 Test Item Value Reference Range Interpretation [...] FOR DIALYSIS PATIEN TS. Specimen slightly ictericLIPID [id number] 05:59:00 Test Item Value Reference Range Interpretation [...] Very High >=190 Specimen slightly ictericHEPATIC FUNCTION [id number] 05:59:00 Test Item Value Reference Range Interpretation [...] = 41 U/L 6-55 347) Specimen slightly [id number] 05:59:00 Test Item Value Reference Range Interpretation Comments LIPASE (BEAKER) (test code = 749) 35 U/L 8-78 Specimen slightly ictericPROTHROMBIN [id number] 05:58:00 Test Item Value Reference Range Interpretation [...] mechanical heart valves.CBC W/PLT COUNT & AUTO [id number] 05:37:00 Test Item Value Reference Range Interpretation [...] 0-1 PERCENT (BEAKER) (test code = 2801) POCT-HEMOGLOBIN [id number] 06:12:00 Test Item Value Reference Range Interpretation Comments POC-HEMOGLOBIN METER 8.6 g/dL 12.0-15.0 L TESTED AT [facility] 6720 (BEAKER) (test code = [place] [address] 1539)
[2019-09-15] MEDS ORDERED: PROMETHAZINE INJ 25 MG/ML AMP ONE (02:06)
[2019-09-15] MEDS ORDERED: MEPERIDINE HCL 25 MG/ML SYR ONE (02:06)
--- NOTE | 2019-09-15 02:35 | EDPHYS ---
Physician Documentation [facility] Name: Zenaida Goss Age: 59 yrs Sex: Female : 1960 Arrival Date: 09/15/2019 Time: 01:30 Bed 8 Private MD: ED Physician Brandon Oneal HPI: 09/14 01:57 This 59 yrs old Female presents to ER via Wheelchair with complaints of Knee pkl Pain. 01:57 The patient presents with pain, that is acute. The complaints affect the both knees. pkl Onset: The symptoms/episode began/occurred. Historical: - Allergies: 01:42 Morphine (Anaphylaxis); mg2 - Home Meds: 01:42 Lactulose Oral [Active]; pantoprazole Oral [Active]; Tylenol #3 Oral [Active]; mg2 - PMHx: 01:42 Anemia; Cirrhosis; fatty liver; Pancreatitis; varices; mg2 - PSHx: 01:42 Appendectomy; Cholecystectomy; breast CA sx; mg2 - Immunization history:: Flu vaccine is up to date. - Social history:: Smoking status: Patient denies any tobacco usage or history of. Patient/guardian denies using alcohol, street drugs, IV drugs. ROS: 01:57 Eyes: Negative for injury, pain, redness, and discharge, ENT: Negative for injury, pkl pain, and discharge, Neck: Negative for injury, pain, and swelling, Cardiovascular: Negative for chest pain, palpitations, and edema, Respiratory: Negative for shortness of breath, cough, wheezing, and pleuritic chest pain, Abdomen/GI: Negative for abdominal pain, nausea, vomiting, diarrhea, and constipation, Back: Negative for injury and pain, : Negative for injury, bleeding, discharge, and swelling, Skin: Negative for injury, rash, and discoloration, Neuro: Negative for headache, weakness, numbness, tingling, and seizure. 01:57 MS/extremity: Positive for pain, swelling, of the both knees. Exam: 01:57 Head/Face: Normocephalic, atraumatic. Eyes: Pupils equal round and reactive to light, pkl extra-ocular motions intact. Lids and lashes normal. Conjunctiva and sclera are non-icteric and not injected. Cornea within normal limits. Periorbital areas with no swelling, redness, or edema. ENT: Nares patent. No nasal discharge, no septal abnormalities noted. Tympanic membranes are normal and external auditory canals are clear. Oropharynx with no redness, swelling, or masses, exudates, or evidence of obstruction, uvula midline. Mucous membranes moist. Neck: Trachea midline, no thyromegaly or masses palpated, and no cervical lymphadenopathy. Supple, full range of motion without nuchal rigidity, or vertebral point tenderness. No Meningismus. Chest/axilla: Normal chest wall appearance and motion. Nontender with no deformity. No lesions are appreciated. Cardiovascular: Regular rate and rhythm with a normal S1 and S2. No gallops, murmurs, or rubs. Normal PMI, no JVD. No pulse deficits. Respiratory: Lungs have equal breath sounds bilaterally, clear to auscultation and percussion. No rales, rhonchi or wheezes noted. No increased work of breathing, no retractions or nasal flaring. Abdomen/GI: Soft, non-tender, with normal bowel sounds. No distension or tympany. No guarding or rebound. No evidence of tenderness throughout. Back: No spinal tenderness. No costovertebral tenderness. Full range of motion. Skin: Warm, dry with normal turgor. Normal color with no rashes, no lesions, and no evidence of cellulitis. Neuro: Awake and alert, GCS 15, oriented to person, place, time, and situation. Cranial nerves II-XII grossly intact. Motor strength 5/5 in all extremities. Sensory grossly intact. Cerebellar exam normal. Normal gait. 01:57 Musculoskeletal/extremity: Extremities: grossly normal except: noted in the both knees: pain, swelling. Vital Signs: 01:40 BP 133 / 47; Pulse 78; Resp 18; Temp 98.1; Pulse Ox 100% on R/A; Weight 113.4 kg; mg2 Height 5 ft. 4 in. (162.56 cm); Pain 10/10; 02:41 BP 134 / 75; Pulse 75; Resp 17; Pulse Ox 99% ; rr5 01:40 Body Mass Index 42.91 (113.40 kg, 162.56 cm) mg2 MDM: 01:32 Patient medically screened. pkl 02:32 Data reviewed: vital signs, nurses notes. pkl 02:37 ED course: Advised to keep appointment with Dr. Singh next week. Patient understood pkl instruction. Administered Medications: 02:05 Drug: Phenergan 12.5 mg Route: IM; Site: left deltoid; mg2 02:42 Follow up: Response: No adverse reaction rr5 02:05 Drug: Demerol 75 mg Route: IM; Site: left deltoid; mg2 02:42 Follow up: Response: No adverse reaction; Pain is decreased; RASS: Alert and Calm (0) rr5 Disposition: 09/15/19 02:34 Discharged to Home. Impression: Pain both knees. - Condition is Stable. - Prescriptions for Ultram 50 mg Oral Tablet - take 1 tablet by ORAL route every 8 hours As needed; 20 tablet. Diclofenac Sodium 75 mg Oral Tablet, Delayed Release (E.C.) - take 1 tablet by ORAL route 2 times per day; 20 tablet. - Medication Reconciliation Form, Thank You Letter, Antibiotic Education, Prescription Opioid Use form. - Follow up: Gm Singh MD; When: 1 week; Reason: Re-evaluation by your physician. - Problem is new. - Symptoms are unchanged. Signatures: Brandon Oneal MD MD pkl Jovanny Cantor RN RN mg2 Shyam Kirk RN RN rr5 Corrections: (The following items were deleted from the chart) 02:42 02:34 09/15/2019 02:34 Discharged to Home. Impression: Pain both knees. Condition is rr5 Stable. Forms are Medication Reconciliation Form, Thank You Letter, Antibiotic Education, Prescription Opioid Use. Follow up: Dr. Gm Singh; When: 1 week; Reason: Re-evaluation by your physician. Problem is new. Symptoms are unchanged. pkl
--- NOTE | 2019-09-15 02:35 | ER ---
Nurse's Notes [facility] Name: Zenaida Goss Age: 59 yrs Sex: Female : 1960 Arrival Date: 09/15/2019 Time: 01:30 Bed 8 Private MD: Diagnosis: Pain both knees Presentation: 09/14 01:40 Chief complaint: Patient states: i have both knee pain for more than a month now. mg2 denies trauma, Im taking tylenol with codeine at home but it's not helping. Coronavirus screen: Proceed with normal triage. Patient denies a cough. Patient denies shortness of breath or difficulty breathing. Patient denies measured and/or subjective temperature greater than 100.4F prior to today's visit. Patient denies travel on a cruise ship or to a country the [facility] currently lists as an affected area. Patient denies contact with known and/or suspected case of COVID-19. Ebola Screen: No symptoms or risks identified at this time. Initial Sepsis Screen: Does the patient meet any 2 criteria? No. Patient's initial sepsis screen is negative. Does the patient have a suspected source of infection? No. Patient's initial sepsis screen is negative. Risk Assessment: Do you want to hurt yourself or someone else? Patient reports no desire to harm self or others. Onset of symptoms was August 2019. 01:40 [place] [facility] [place] Acuity: TANK 4 mg2 Triage Assessment: 01:42 General: Appears in no apparent distress. comfortable, Behavior is calm, cooperative. mg2 Pain: Complains of pain in both knees. EENT: No signs and/or symptoms were reported regarding the EENT system. Neuro: Level of Consciousness is awake, alert, obeys commands, Oriented to person, place, time, situation. Cardiovascular: Capillary refill < 3 seconds Patient's skin is warm and dry. Respiratory: Airway is patent Respiratory effort is even, unlabored, Respiratory pattern is regular, symmetrical. GI: No signs and/or symptoms were reported involving the gastrointestinal system. : No deficits noted. Derm: Skin is intact, is healthy with good turgor, Skin is pink, warm \T\ dry. normal. Musculoskeletal: Reports pain in both knees. Historical: - Allergies: 01:42 Morphine (Anaphylaxis); mg2 - Home Meds: 01:42 Lactulose Oral [Active]; pantoprazole Oral [Active]; Tylenol #3 Oral [Active]; mg2 - PMHx: 01:42 Anemia; Cirrhosis; fatty liver; Pancreatitis; varices; mg2 - PSHx: 01:42 Appendectomy; Cholecystectomy; breast CA sx; mg2 - Immunization history:: Flu vaccine is up to date. - Social history:: Smoking status: Patient denies any tobacco usage or history of. Patient/guardian denies using alcohol, street drugs, IV drugs. Screenin:43 Abuse screen: Denies threats or abuse. Denies injuries from another. Nutritional mg2 screening: No deficits noted. Tuberculosis screening: No symptoms or risk factors identified. Fall Risk None identified. Assessment: :43 General: see triage note. mg2 02:41 Reassessment: Patient appears in no apparent distress at this time. Patient is alert, rr5 oriented x 3, equal unlabored respirations, skin warm/dry/pink. discharge instruction given and explained without complaints made. Patient states symptoms have improved. Vital Signs: 01:40 BP 133 / 47; Pulse 78; Resp 18; Temp 98.1; Pulse Ox 100% on R/A; Weight 113.4 kg; mg2 Height 5 ft. 4 in. (162.56 cm); Pain 10/10; 02:41 BP 134 / 75; Pulse 75; Resp 17; Pulse Ox 99% ; rr5 01:40 Body Mass Index 42.91 (113.40 kg, 162.56 cm) mg2 ED Course: 01:30 Patient arrived in ED. ag3 01:32 Brandon Oneal MD is Attending Physician. pkl 01:39 Jovanny Cantor, ERIC is Primary Nurse. mg2 01:41 Triage completed. mg2 01:41 Arm band placed on. mg2 01:43 No provider procedures requiring assistance completed. Patient did not have IV access mg2 during this emergency room visit. 01:46 Patient has correct armband on for positive identification. Pulse ox on. NIBP on. Door mg2 closed. Warm blanket given. 02:33 Gm Singh MD is Referral Physician. pkl Administered Medications: 02:05 Drug: Phenergan 12.5 mg Route: IM; Site: left deltoid; mg2 02:42 Follow up: Response: No adverse reaction rr5 02:05 Drug: Demerol 75 mg Route: IM; Site: left deltoid; mg2 02:42 Follow up: Response: No adverse reaction; Pain is decreased; RASS: Alert and Calm (0) rr5 Outcome: 02:34 Discharge ordered by . bea 02:42 Patient left the ED. rr5 Signatures: Brandon Oneal MD MD pkl Jovanny Cantor RN RN mg2 Sandi Scott ag3 Shyam Kirk RN RN rr5
[2019-09-15 02:48] VITALS: TEMP 98.1
[2019-09-15 02:50] VITALS: BP 134/75; O2SAT 99
== END 2019-09-15 02:42 | disposition home or self-care (01) ==
LOC: ER 01:26
DX: M25.562 Pain in left knee (principal); M25.561 Pain in right knee; Z88.5 Allergy status to narcotic agent; Z85.3 Personal history of malignant neoplasm of breast
CPT/HCPCS: 96372; 99283; J2550; J2175

== ENCOUNTER 2019-10-19 05:12 | Emergency (ER) | payer OTHER ==
--- OUTSIDE RECORDS SUMMARY | 2019-10-19 05:14 | XMS REPORT | Clinical Summary ---
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
--- OUTSIDE RECORDS SUMMARY | 2019-10-19 05:14 | XMS REPORT | Clinical Summary ---
:1960 Author Organization [facility] Address [address] [place] [address] Care Team Providers Name Role Phone Usman Miranda Primary Care Provider Unavailable Allergies Active Allergy Reactions Severity Noted Date Comments Latex Rash Low 03/28/2017 Morphine Shortness Of Breath, High 06/30/2016 Throat closes, tongue Swelling swelling Medications Medication Sig Dispensed Refills Start Date End Date Status lactulose (CEPHULAC) 10 Take 10 g by 0 Active gram packet mouth 2 (two) times daily . rifAXIMin 550 mg Take 550 mg by 0 Active TabIndications: mouth 2 (two) impaired brain function times daily. due to liver disease pantoprazole (PROTONIX) Take 1 tablet 60 tablet 1 10/03/2018 0 11/02/2018 40 MG tablet (40 mg total) by mouth 2 (two) times daily for 30 days. cyanocobalamin (VITAMIN Take 1 tablet 30 tablet 0 10/03/2018 0 11/02/2018 B-12) 1000 MCG tablet (1,000 mcg total) by mouth daily for 30 days. Active Problems Problem Noted Date Epigastric abdominal pain 09/30/2018 Other cirrhosis of liver 09/30/2018 Increased ammonia level 09/30/2018 Social History Tobacco Use Types Packs/Day Years [...] Not on file Results Not on fileafter 10/18/2018 Advance Directives For more information, please contact:[id number] [place], [place] [phone] Code Status Date Activated Date Inactivated Comments Full Code 09/30/2018 8:45 PM 10/03/2018 7:37 PM This code status was determined by: Patient
--- OUTSIDE RECORDS SUMMARY | 2019-10-19 05:15 | XMS REPORT | Continuity of Care Document ---
:1960 Author Organization [facility] t Address [address] [place] [address] Care Team Providers Name Role Phone Ruth HENSLEY Primary Care Physician Nasrin REYES, A Attending Clinician Unavailable Alisha HENSLEY Attending Clinician SHAYY DAVEY Attending Clinician Unavailable JUDIT ESCALONA Attending Clinician Unavailable Alisha HENSLEY Admitting Clinician SHAYY DAVEY Admitting Clinician Unavailable JUDIT ESCALONA Admitting Clinician Unavailable Problems Condition Condition Condition Status Onset Resolution [...] - level level 00:00: Medical 00 Center Primary Primary Diagnosis [facility] right knee right knee l [facility] ent Clinics Primary Primary Diagnosis Active [facility] left knee left knee l [facility] ent Clinics Allergies, Adverse Reactions, Alerts Allergy Allergy Status [...] tongue Medical reaction 00 swelling Center s MORPHINE Adverse Active Info Not [facility] Reaction Available [facility] Social History Social Habit Start Date Stop Date Quantity Comments Source Sex Assigned At [facility] Smoking Status Start Date Stop Date Source Never smoker [facility] Center Medications Ordered Filled Start Stop Current Ordering Indication Dosage Frequency Signature Comments Components Source Medication Medication Date Date Medication? Clinician (SIG) Name Name Meloxicam Meloxicam 2020- Yes Gm [address] [facility]00 [facility] 00 :00 [facility] pantoprazol 2019- No 40mg Q.5D Take [address] [facility] [facility] 6- 07-25 tablet (40 [facility] - (PROTONIX) 00:00: [...] 25 times Center daily . rifAXIMin Yes impaired 550mg Q.5D Take [address] 550 mg Tab 6-22 brain mg by [facility] - 21:43: function mouth 2 Medica l 25 due to (two) Center liver times disease daily. Pantoprazol Pantoprazol Yes Gm not [facility] Sodium e Sodium Singh defined [facility] Acetaminoph Acetaminoph Yes Gm not [facility] en-Codeine en-Codeine Singh defined [facility]3 [facility] Oseltamivir Oseltamivir Yes Gm not [facility] Phosphate Phosphate Singh defined [facility] Levofloxaci Levofloxaci Yes Gm not [facility] n n Singh defined [facility] Xifaxan Xifaxan Yes Gm not [facility] Singh defined [facility] Lactulose Lactulose Yes Gm not [facility] Singh defined [facility] Albuterol Albuterol Yes Gm not [facility] Sulfate HFA Sulfate HFA Singh defined [facility] Azithromyci Azithromyci Yes Gm not [facility] n Singh defined [facility] Amoxicillin Amoxicillin Yes Gm not [facility] -Pot -Pot Singh defined [facility] - Clavulanate Clavulanate [facility] Procedures This patient has no known procedures. Plan of Care Planned Activity Planned Date Details Comments Source Future Scheduled 2019-11-10 INFLUENZA VACCINE [place] [facility] 00:00:00 [code = INFLUENZA VACCINE] Future Scheduled 2011 BREAST CANCER [facility] Test 00:00:00 SCREENING [code = BREAST CANCER SCREENING] Future Scheduled 2011 COLONOSCOPY SCREENING [facility] Test 00:00:00 [code = COLONOSCOPY SCREENING] Future Scheduled 2011 SHINGLES VACCINES [place] [facility] 00:00:00 (#1) [code = SHINGLES VACCINES (#1)] Future Scheduled [facility] malignant neoplasm of cervix (procedure) [code = 030433446] Encounters Start End Encounter Admission Attending Care Care Encounter Source Date/Time Date/Time Type Type Clinicians Facility Department ID 2019-09-28 2019-09-28 [facility] [id number] [address] 09:00:00 09:00[facility]00 [facility] 2019-09-18 2019-09-18 [facility] [id number] 09:30:00 09:30:00 t [facility] ent [facility] 2019-08-14 2019-08-14 Transition NasrinJocelyne [id number] 00:00:00 00:00:00 of Care Jovanny Sotelo [id number] [place] [id number] 2019-08-10 2019-08-11 [facility] [id number] 02:55:00 16:09:00 Encounter Wes Amin [id number] [place] [id number] [place] [id number] Results Test Description Test Time Test Comments Results Result Sourc e Comments RAD, CHEST, 1 2018-10-03 Reason for FINAL REPORT PATIENT VIEW, NON DEPT 07:50:00 exam:->SOBShoul ID: [id number] CLINICAL d this be HISTORY: SOB performed at TECHNIQUE: 1 view of the the chest. COMPARISON: bedside?->Yes None IMPRESSION: There is pulmonary vascular congestion with prominent lung markings bilaterally. Subpulmonic pleural effusions cannot be excluded. The cardiomediastinal silhouette is magnified by technique. Signed: Franky Hoyt MDReport Verified Date/Time: 10/03/2018 07:50:47 Reading Location: [facility] Radiology Reading Room ESIUM 2018-10-03 07:37:00 Test Item Value Reference Range Interpretation Comme nts MAGNESIUM (BEAKER) (test code = 627) 1.6 mg/dL 1.6-2.6 BASIC METABOLIC [id number] 07:37:00 Test Item Value Reference Range Interpretation [...] DIALYSIS PATIEN TS. Specimen slightly ictericHEPATIC FUNCTION [id number] 07:37:00 Test Item Value Reference Range Interpretation [...] 35 U/L 6-55 347) Specimen slightly ictericPROTHROMBIN [id number] 06:25:00 Test Item Value Reference Range Interpretation [...] mechanical heart valves.CBC W/PLT COUNT & AUTO [id number] 06:16:00 Test Item Value Reference Range Interpretation [...] = 3438) Received comment: User comments: Slide comments:[id number] 05:58:00 Test Item Value Reference Range Interpretation Comments MAGNESIUM (BEAKER) (test code = 1.6 mg/dL 1.6-2.6 627) BASIC METABOLIC [id number] 05:58:00 Test Item Value Reference Range Interpretation [...] DIALYSIS PATIEN TS. Specimen slightly ictericHEPATIC FUNCTION [id number] 05:58:00 Test Item Value Reference Range Interpretation [...] 39 U/L 6-55 347) Specimen slightly ictericPROTHROMBIN [id number] 05:26:00 Test Item Value Reference Range Interpretation [...] mechanical heart valves.CBC W/PLT COUNT & AUTO [id number] 05:20:00 Test Item Value Reference Range Interpretation [...] WBC 0-0 (test code = 413) VITAMIN [id number] 06:57:00 Test Item Value Reference Range Interpretation Comments VITAMIN B12 (BEAKER) (test code = 178 pg/mL 213-816 L 774) [id number] 06:57:00 Test Item Value Reference Range Interpretation Comments FERRITIN (BEAKER) (test code = 361) 21 ng/mL 5-275 FOLATE, [id number] 06:57:00 Test Item Value Reference Range Interpretation [...] 28 % 20-55 (test code = 2590) [id number] 05:59:00 Test Item Value Reference Range Interpretation Comments MAGNESIUM (BEAKER) (test code = 1.7 mg/dL 1.6-2.6 627) BASIC METABOLIC [id number] 05:59:00 Test Item Value Reference Range Interpretation [...] FOR DIALYSIS PATIEN TS. Specimen slightly ictericLIPID [id number] 05:59:00 Test Item Value Reference Range Interpretation [...] Very High >=190 Specimen slightly ictericHEPATIC FUNCTION [id number] 05:59:00 Test Item Value Reference Range Interpretation [...] = 41 U/L 6-55 347) Specimen slightly [id number] 05:59:00 Test Item Value Reference Range Interpretation Comments LIPASE (BEAKER) (test code = 749) 35 U/L 8-78 Specimen slightly ictericPROTHROMBIN [id number] 05:58:00 Test Item Value Reference Range Interpretation [...] mechanical heart valves.CBC W/PLT COUNT & AUTO [id number] 05:37:00 Test Item Value Reference Range Interpretation [...] PERCENT (BEAKER) (test code = 2801) POCT-HEMOGLOBIN [id number] 06:12:00 Test Item Value Reference Range Interpretation Comments POC-HEMOGLOBIN METER 8.6 g/dL 12.0-15.[address] [facility] [address] (MARITZALEONELA) (test code = JOANNA BARAHONA [id number] 2259)
--- OUTSIDE RECORDS SUMMARY | 2019-10-19 05:17 | XMS REPORT ---
:1960 Author Organization [employer] Care Team Providers Name Role Phone Gm Singh Provider Role Unavailable Allergies, Adverse Reactions, Alerts Substance Reaction Event Type MORPHINE Info Not Available Drug Allergy Problems Problem Type Condition Code Onset Dates Condition Statu s Problem Primary osteoarthritis of right knee M17.11 Active Problem Primary osteoarthritis of left knee M17.12 Active Assessment Primary osteoarthritis of right knee M17.11 Active Assessment Primary osteoarthritis of left knee M17.12 Active Medications Medication Code Code Instructions Start End Status Dosage System Date Date Meloxicam [facility] 50675486507 7.5 MG Orally September 17October Active 1 t ablet Once a day 2019 Lactulose [facility] [address]-16 Active not defined Xifaxan [facility] [address]-44 Active not defined Oseltamivir [facility] [address]-68 Active not Phosphate defined Acetaminophen-C [facility] [address]-70 Active no t odeine #3 defined Levofloxacin [facility] [address]-60 Active not defined Albuterol [facility] [id number] Active not Sulfate HFA defined Azithromycin [facility] [address]-87 Active not defined Amoxicillin-Pot [facility] [address]-59 Active no t Clavulanate defined Pantoprazole [facility] [address]-72 Active not Sodium defined Results No Known Results Summary Purpose [employer] Submission
--- OUTSIDE RECORDS SUMMARY | 2019-10-19 05:17 | XMS REPORT ---
:1960 Author Organization [employer] Care Team Providers Name Role Phone Gm Singh Provider Role Unavailable Allergies, Adverse Reactions, Alerts Substance Reaction Event Type MORPHINE Info Not Available Drug Allergy Problems Problem Type Condition Code Onset Dates Condition Statu s Problem Primary osteoarthritis of right M17.11 Active knee Problem Primary osteoarthritis of left knee M17.12 Active Assessment Primary osteoarthritis of right M17.11 Active knee Assessment Primary osteoarthritis of left knee M17.12 Active Assessment Pain, joint, knee, right M25.561 Act onur Assessment Pain, joint, knee, left M25.562 Acti ve Medications Medication Code Code Instructions Start End Status Dosage System Date Date Pantoprazole [facility] [place] [address]-76 Active not Sodium defined Acetaminophen-C [facility] [place] [address]-03 Active no t odeine #3 defined Oseltamivir [facility] [place] [address]-86 Active not Phosphate defined Levofloxacin [facility] [place] [address]-43 Active not defined Xifaxan [facility] [place] [address]-78 Active not defined Lactulose [facility] [place] [address]-71 Active not defined Albuterol [facility] [place] [address]-77 Active not Sulfate HFA defined Azithromycin [facility] [place] [address]-60 Active not defined Amoxicillin-Pot [facility] [place] [address]-88 Active no t Clavulanate defined Meloxicam [facility] [place] [id number] 7.5 MG Orally September 17October Active 1 t ablet Once a day 2019 Results No Known Results Summary Purpose [employer] Submission
[2019-10-19 07:00] LABS: Absolute Lymphocytes (CBC) 0.8 K/uL (0.7-4.9); Basophils % 0.6 % (0-1.3); Hematocrit 37.2 % (36.0-45.0); Lymphocytes % 19.4 % (15.3-44.8); MPV 9.4 fL (7.6-11.3); RBC Red Blood Cell Count 3.77 M/uL (3.86-4.86)
[2019-10-19 07:12] LABS: BUN Blood Urea Nitrogen 15 mg/dL (7-18); Bicarbonate 27 mmol/L (21-32); Glucose Level 95 mg/dL (74-106); Potassium 3.9 mmol/L (3.5-5.1); Sodium Level 143 mmol/L (136-145)
[2019-10-19] MEDS ORDERED: FENTANYL CITR 100 MCG/2 ML ONE ×2 (07:28→09:28)
[2019-10-19] MEDS ORDERED: ONDANSETRON 4 MG/2 ML VIAL ONE (07:28)
[2019-10-19] MEDS ORDERED: NA CHLORIDE 0.9% 1,000 ML ONE (07:29)
--- NOTE | 2019-10-19 08:49 | RAD REPORT ---
EXAM DESCRIPTION: US - Transvaginal Study Probe - 10/19/2019 7:35 am CLINICAL HISTORY: VAGINAL BLEEDING Pelvic pain. COMPARISON: Transvaginal Study Probe dated 05/31/2018 FINDINGS: The uterus is normal in size, shape and echotexture. The uterus measures 9.8 x 5.7 x 4.4 c m. The endometrial stripe measures 19 mm, thickened Neither ovary discretely identified due to bowel gas. Mild bilateral hydrosalpinx noted. No significant pelvic ascites. IMPRESSION: Endometrial stripe is thickened to 19 mm, considered abnormally thickened in a postmenop ausal female. This may indicate endometrial hyperplasia, polyp or carcinoma.Followup tissue sampling of the endometrium would be suggested.
[2019-10-19 09:43] LABS: Blood Morphology Comment NOT SEEN (NOT SEEN); Platelet Estimate DECR; Urine White Blood Cell Casts OK
--- NOTE | 2019-10-19 09:43 | EDPHYS ---
Physician Documentation [facility] Name: Zenaida Goss Age: 59 yrs Sex: Female : 1960 Arrival Date: 10/19/2019 Time: 05:15 Bed 19 Private MD: ED Physician Aayush Alfaro HPI: 10/18 07:14 This 59 yrs old Female presents to ER via Unassigned with complaints of kb Vaginal Bleeding. 07:14 The patient presents with vaginal bleeding that is moderate, with clots. Onset: The kb symptoms/episode began/occurred this morning, at 03:00. Modifying factors: The symptoms are alleviated by nothing, the symptoms are aggravated by nothing. Associated signs and symptoms: Pertinent positives: cramping, vaginal bleeding. Severity of symptoms: At their worst the symptoms were moderate, in the emergency department the symptoms are unchanged. The patient has not experienced similar symptoms in the past. The patient has not recently seen a physician. Pt reports she woke up with vaginal bleeding at 0300. States she hasn't had vaginal bleeding for 12 years. Also reports cramping. . Historical: - Allergies: 07:01 Morphine (Anaphylaxis); lp1 - Home Meds: 07:16 Lactulose Oral [Active]; pantoprazole Oral [Active]; Tylenol #3 Oral [Active]; lp1 - PMHx: 07:16 Anemia; Cirrhosis; fatty liver; Pancreatitis; Breast cancer; varices; lp1 - PSHx: 07:16 Cholecystectomy; R lumpectomy; lp1 - Immunization history:: Adult Immunizations up to date. - Social history:: Smoking status: Patient denies any tobacco usage or history of. ROS: 07:16 Constitutional: Negative for fever, chills, and weight loss, Cardiovascular: Negative kb for chest pain, palpitations, and edema, Respiratory: Negative for shortness of breath, cough, wheezing, and pleuritic chest pain, Back: Negative for injury and pain, MS/Extremity: Negative for injury and deformity, Skin: Negative for injury, rash, and discoloration, Neuro: Negative for headache, weakness, numbness, tingling, and seizure. 07:16 Abdomen/GI: Positive for abdominal cramps. 07:16 : Positive for vaginal bleeding. Exam: 07:16 Constitutional: This is a well developed, well nourished patient who is awake, alert, kb and in no acute distress. Head/Face: Normocephalic, atraumatic. Chest/axilla: Normal chest wall appearance and motion. Nontender with no deformity. No lesions are appreciated. Cardiovascular: Regular rate and rhythm with a normal S1 and S2. No gallops, murmurs, or rubs. Normal PMI, no JVD. No pulse deficits. Respiratory: Lungs have equal breath sounds bilaterally, clear to auscultation and percussion. No rales, rhonchi or wheezes noted. No increased work of breathing, no retractions or nasal flaring. Skin: Warm, dry with normal turgor. Normal color with no rashes, no lesions, and no evidence of cellulitis. MS/ Extremity: Pulses equal, no cyanosis. Neurovascular intact. Full, normal range of motion. Neuro: Awake and alert, GCS 15, oriented to person, place, time, and situation. Cranial nerves II-XII grossly intact. Motor strength 5/5 in all extremities. Sensory grossly intact. Cerebellar exam normal. Normal gait. 07:16 Abdomen/GI: Inspection: abdomen appears normal, Bowel sounds: normal, in all quadrants, Palpation: soft, in all quadrants, moderate abdominal tenderness, in the right lower quadrant and left lower quadrant. Vital Signs: 06:30 BP 128 / 52; Pulse 69; Resp 18; Temp 97.6(TE); Pulse Ox 98% on R/A; Weight 117.93 kg lp1 (R); Height 5 ft. 3 in. (160.02 cm); Pain 9/10; 08:01 BP 141 / 55; Pulse 65; Resp 16; Pulse Ox 100% ; sv 08:44 BP 121 / 63; Pulse 57; Resp 16; Pulse Ox 96% ; sv 10:05 BP 120 / 57 Supine; Pulse 63; Resp 17 S; Pulse Ox 97% on R/A; ca1 10:06 BP 121 / 50 Sitting; Pulse 59; Resp 17 S; Pulse Ox 98% on R/A; ca1 10:07 BP 108 / 57 Standing; Pulse 71; Resp 17 S; Pulse Ox 98% on R/A; ca1 06:30 Body Mass Index 46.06 (117.93 kg, 160.02 cm) lp1 MDM: 06:01 Patient medically screened. kb 07:17 Data reviewed: vital signs, nurses notes. Data interpreted: Pulse oximetry: on room air kb is 98 %. Interpretation: normal. 08:23 ED course: Pt refuses pelvic exam. States "all that's going to tell you is that I'm kb bleeding and we already know that so you don't need to do the exam.". 09:40 Counseling: I had a detailed discussion with the patient and/or guardian regarding: the kb historical points, exam findings, and any diagnostic results supporting the discharge/admit diagnosis, lab results, radiology results, the need for outpatient follow up, an OB/Gyne specialist, to return to the emergency department if symptoms worsen or persist or if there are any questions or concerns that arise at home. ED course: Discussed pt condition and diagnostics with Dr Leonard's PARTS DATA WRITER. Will see pt in office at 1445 today. Pt informed of appt and need to call the office upon discharge. . 10/18 06:12 Order name: CBC with Diff kb 10/18 06:12 Order name: Basic Metabolic Panel; Complete Time: 07:13 kb 10/18 06:12 Order name: Type And Screen; Complete Time: 07:33 kb 10/18 06:12 Order name: US Transvaginal Study (Probe); Complete Time: 08:50 kb 10/18 09:43 Order name: CBC Smear Scan; Complete Time: 09:46 EDMS 10/18 06:12 Order name: IV Start; Complete Time: 06:43 kb 10/18 08:53 Order name: Orthostatics; Complete Time: 10:11 kb Administered Medications: 07:40 Drug: NS 0.9% 1000 ml Route: IV; Rate: 1000 ml; Site: left antecubital; sv 08:30 Follow up: Response: No adverse reaction; IV Status: Completed infusion; IV Intake: sv 1000ml 07:40 Drug: Zofran (Ondansetron) 4 mg Route: IVP; Site: left antecubital; sv 08:00 Follow up: Response: No adverse reaction sv 07:42 Drug: fentaNYL (PF) 50 mcg {Note: rass1.} Route: IVP; Site: left antecubital; sv 08:00 Follow up: Response: No adverse reaction; RASS: Alert and Calm (0) sv 09:23 Drug: fentaNYL (PF) 50 mcg Route: IVP; Site: left antecubital; 10:10 Follow up: Response: No adverse reaction; Pain is decreased; RASS: Alert and Calm (0) ca1 Disposition: 10/19 01:35 Co-signature as Attending Physician, Aayush Alfaro MD. [email or web address] Disposition: 10/19/19 09:42 Discharged to Home. Impression: Abnormal uterine and vaginal bleeding, unspecified. - Condition is Stable. - Discharge Instructions: Abnormal Uterine Bleeding, [id number]. - Medication Reconciliation Form, Thank You Letter, Antibiotic Education, Prescription Opioid Use form. - Follow up: Emergency Department; When: As needed; Reason: Worsening of condition. Follow up: Private Physician; When: 2 - 3 days; Reason: Recheck today's complaints, Continuance of care, Re-evaluation by your physician. - Notes: Call Dr Leonard's office upon discharge Appt scheduled for 2:45 today Signatures: Dispatcher [employer] EDMS Valarie Wise, ZENIA-C ETCHER PHOTOENGRAVING-Katherine Toth, RN ERIC Inocencia Villafuerte RN RN Kacy aBrnes RN RN lp1 Vesna Deleon RN ERIC ca1 Aayush Alfaro MD MD [email or web address] Corrections: (The following items were deleted from the chart) 10/18 10:17 09:42 10/19/2019 09:42 Discharged to Home. Impression: Abnormal uterine and vaginal ca1 bleeding, unspecified. Condition is Stable. Forms are Medication Reconciliation Form, Thank You Letter, Antibiotic Education, Prescription Opioid Use. Follow up: Emergency Department; When: As needed; Reason: Worsening of condition. Follow up: Private Physician; When: 2 - 3 days; Reason: Recheck today's complaints, Continuance of care, Re-evaluation by your physician. kb
--- NOTE | 2019-10-19 09:43 | ER ---
Nurse's Notes [facility] Name: Zenaida Goss Age: 59 yrs Sex: Female : 1960 Arrival Date: 10/19/2019 Time: 05:15 Bed 19 Private MD: Diagnosis: Abnormal uterine and vaginal bleeding, unspecified Presentation: 10/18 05:56 Acuity: TANK 3 dm5 06:15 Chief complaint: Patient states: Vaginal bleeding that began while she was sleeping; lp1 States bright red blood, has soaked through 3 pads, pelvic cramping. Ebola Screen: No symptoms or risks identified at this time. 06:15 Coronavirus screen: Patient denies a cough. Patient denies shortness of breath or lp1 difficulty breathing. Patient denies measured and/or subjective temperature greater than 100.4F prior to today's visit. Patient denies travel on a cruise ship or to a country the [facility] currently lists as an affected area. Patient denies contact with known and/or suspected case of COVID-19. Initial Sepsis Screen: Does the patient meet any 2 criteria? No. Patient's initial sepsis screen is negative. Does the patient have a suspected source of infection? No. Patient's initial sepsis screen is negative. Risk Assessment: Do you want to hurt yourself or someone else? Patient reports no desire to harm self or others. Onset of symptoms was October 19, 2019 at 04:30. 06:15 Method Of Arrival: Wheelchair lp1 Historical: - Allergies: 07:01 Morphine (Anaphylaxis); lp1 - Home Meds: 07:16 Lactulose Oral [Active]; pantoprazole Oral [Active]; Tylenol #3 Oral [Active]; lp1 - PMHx: 07:16 Anemia; Cirrhosis; fatty liver; Pancreatitis; Breast cancer; varices; lp1 - PSHx: 07:16 Cholecystectomy; R lumpectomy; lp1 - Immunization history:: Adult Immunizations up to date. - Social history:: Smoking status: Patient denies any tobacco usage or history of. Screenin:16 Abuse screen: Denies threats or abuse. Denies injuries from another. Nutritional lp1 screening: No deficits noted. Tuberculosis screening: No symptoms or risk factors identified. Fall Risk None identified. Assessment: 06:30 General: Appears in no apparent distress. Behavior is anxious. Pain: Complains of pain lp1 in suprapubic area Pain currently is 9 out of 10 on a pain scale. Quality of pain is described as sharp. Neuro: Level of Consciousness is awake, alert, obeys commands. Cardiovascular: Patient's skin is warm and dry. Respiratory: Respiratory effort is even, unlabored. GI: Abdomen is obese. : Urine is blood tinged, Reports vaginal bleeding that is bright red. EENT: No signs and/or symptoms were reported regarding the EENT system. Derm: Skin is pink, warm \T\ dry. Musculoskeletal: No deficits noted. 06:45 Reassessment: Assisted patient to [facility]; blood tinged urine noted. lp1 07:35 General: Appears in no apparent distress. comfortable, well developed, Behavior is sv calm, cooperative, appropriate for age. Pain: Complains of pain in suprapubic area Pain currently is 9 out of 10 on a pain scale. Quality of pain is described as sharp. Neuro: Level of Consciousness is awake, alert, obeys commands, Oriented to person, place, time, situation. Respiratory: Airway is patent Respiratory effort is even, unlabored, Respiratory pattern is regular, symmetrical. : Reports vaginal bleeding that is bright red. Derm: Skin is pink, warm \T\ dry. 09:55 Reassessment: Went to discharge the pt, pt asking if we can recheck her blood level one sv more time before she leaves. Informed Valarie SOMMER, ordered to do orthostatics before she leaves. Informed pt, pt is ok with that. Vital Signs: 06:30 BP 128 / 52; Pulse 69; Resp 18; Temp 97.6(TE); Pulse Ox 98% on R/A; Weight 117.93 kg lp1 (R); Height 5 ft. 3 in. (160.02 cm); Pain 9/10; 08:01 BP 141 / 55; Pulse 65; Resp 16; Pulse Ox 100% ; sv 08:44 BP 121 / 63; Pulse 57; Resp 16; Pulse Ox 96% ; sv 10:05 BP 120 / 57 Supine; Pulse 63; Resp 17 S; Pulse Ox 97% on R/A; ca1 10:06 BP 121 / 50 Sitting; Pulse 59; Resp 17 S; Pulse Ox 98% on R/A; ca1 10:07 BP 108 / 57 Standing; Pulse 71; Resp 17 S; Pulse Ox 98% on R/A; ca1 06:30 Body Mass Index 46.06 (117.93 kg, 160.02 cm) lp1 ED Course: 05:15 Patient arrived in ED. cl3 05:57 Triage completed. dm5 06:00 [facility]C [facility] kb 06:00 Aayush Alfaro MD is Attending Physician. kb 06:16 Rayne Guerrero, RN is Primary Nurse. dm5 06:30 Arm band placed on right wrist. lp1 06:38 Inserted saline lock: 22 gauge in left antecubital area, using aseptic technique. Blood lp1 collected. 06:38 Initial lab(s) drawn, by me, sent to lab. T\T\S collected, blood band applied to patient. lp1 07:17 Patient has correct armband on for positive identification. Placed in gown. Pulse ox lp1 on. NIBP on. 07:35 US Transvaginal Study (Probe) In Process Unspecified. EDMS 08:02 Awaiting radiology results. sv 08:44 Primary Nurse role handed off by Rayne Guerrero, RN sv 08:44 Katherine Hammond, ERIC is Primary Nurse. sv 09:55 No provider procedures requiring assistance completed. IV discontinued, intact, sv bleeding controlled, No redness/swelling at site. Pressure dressing applied. Administered Medications: 07:40 Drug: NS 0.9% 1000 ml Route: IV; Rate: 1000 ml; Site: left antecubital; sv 08:30 Follow up: Response: No adverse reaction; IV Status: Completed infusion; IV Intake: sv 1000ml 07:40 Drug: Zofran (Ondansetron) 4 mg Route: IVP; Site: left antecubital; sv 08:00 Follow up: Response: No adverse reaction sv 07:42 Drug: fentaNYL (PF) 50 mcg {Note: rass1.} Route: IVP; Site: left antecubital; sv 08:00 Follow up: Response: No adverse reaction; RASS: Alert and Calm (0) sv 09:23 Drug: fentaNYL (PF) 50 mcg Route: IVP; Site: left antecubital; ss 10:10 Follow up: Response: No adverse reaction; Pain is decreased; RASS: Alert and Calm (0) ca1 Intake: 08:30 IV: 1000ml; Total: 1000ml. sv Outcome: 09:42 Discharge ordered by MD. ybarra 09:55 Discharged to home ambulatory. sv 09:55 Condition: stable 09:55 Discharge instructions given to patient, Instructed on discharge instructions, follow up and referral plans. pt informed of her appt with Dr Leonard that has been set up for her at 1445. Demonstrated understanding of instructions, follow-up care. 10:17 Patient left the ED. ca1 Signatures: Dispatcher [employer] EDMS Valaire Wise, CUSTOMER EXPERIENCE PROFESSIONAL-C CUSTOMER EXPERIENCE PROFESSIONAL-CkRayne Menjivar, RN RN dm5 Katherine Hammond RN RN Inocencia Martinez, RN RN ss Kacy Barnes RN RN lp1 Vesna Deleon RN RN Sejal Saxena cl3
[2019-10-19 10:53] VITALS: BP 141/55; O2SAT 100
== END 2019-10-19 10:17 | disposition home or self-care (01) ==
LOC: ER 05:12
DX: N93.9 Abnormal uterine and vaginal bleeding, unspecified (principal); Z88.6 Allergy status to analgesic agent
CPT/HCPCS: 96361; 85025; 80048; 36415; 86900; 86850; 86901; 76830; 96375; 96374; 99284; J3010 ×2; J7030; J2405

== ENCOUNTER 2019-10-23 09:06 | Day surgery (SDC) | payer OTHER ==
[2019-10-23] MEDS ORDERED: Ringers Lactate 1,000 ML IV ONE (09:38)
[2019-10-23] MEDS ORDERED: HYDROCODONE/APAP 5/325 MG TAB ONE ×2 (10:12→12:44)
[2019-10-23] MEDS ORDERED: NA CHLORIDE 0.9% 1,000 ML ONE (11:13)
[2019-10-23] MEDS ORDERED: LIDOCAINE 1% W/EPI 1:100,000 MDV 20 ML VIAL ONE (11:13)
[2019-10-23] MEDS ORDERED: FENTANYL CITR 100 MCG/2 ML ONE (11:34)
[2019-10-23] MEDS ORDERED: MIDAZOLAM HCL 2 MG/2 ML INJ ONE (11:34)
[2019-10-23] MEDS ORDERED: propofoL 200 MG/20 ML VIAL IV ONE ×2 (11:34→11:49)
[2019-10-23] MEDS ORDERED: LIDOCAINE 2% MPF 5 ML VIAL ONE (11:34)
[2019-10-23] MEDS ORDERED: KETOROLAC 30 MG/ML INJ ONE (12:14)
--- OUTSIDE RECORDS SUMMARY | 2019-10-23 12:53 | XMS REPORT | Continuity of Care Document ---
:[address] [facility] t Address [address] [id number] Care Team Providers Name Role Phone Ruth [...] of Memoria right knee right knee l [facility] Primary Primary Diagnosis Active [facility] left knee left knee l [facility] Allergies, Adverse Reactions, Alerts [...] Info Not [facility] Reaction Available [facility] Social History Social Habit Start Date Stop Date Quantity Comments Source Sex Assigned At [facility] Smoking Status Start Date Stop Date Source Never smoker [facility] Medications Ordered Filled Start Stop Current Ordering Indication Dosage Frequency Signature Comments Components Source Medication Medication Date Date Medication? Clinician (SIG) Name Name Meloxicam Meloxicam 2020- Yes Gm [address] [facility] 00[facility]: [facility]00 [facility] 00 :00 [facility] pantoprazol 2019- No 40mg Q.5D Take [...] Future Scheduled 2019-11-10 INFLUENZA VACCINE [place] [facility] 00:00:00 [code = INFLUENZA VACCINE] Future Scheduled 2011 BREAST CANCER [facility] Test 00:00:00 SCREENING [code = BREAST CANCER SCREENING] Future Scheduled 2011 COLONOSCOPY SCREENING [facility] Test 00:00:00 [code = COLONOSCOPY SCREENING] Future Scheduled 2011 SHINGLES VACCINES [place] [facility] 00:00:00 (#1) [code = SHINGLES VACCINES (#1)] Future Scheduled [facility] malignant neoplasm of cervix (procedure) [code = 005663225] Encounters Start End Encounter Admission Attending Care Care Encounter Source Date/Time Date/Time Type Type Clinicians Facility Department ID 2019-09-28 2019-09-28 [facility] [id number] [facility] 09:[facility]00 09[facility] [place] [facility] Frandy Fr[facility] 2019-09-18 2019-09-18 [facility] [id number] 09:30[facility]00 09:30[facility]00 [facility] 2019-08-14 2019-08-14 Transition NasrinJocelyne [id number] 00:00:00 00:00:00 of Care Jovanny Sotelo [id number] [place] [id number] 2019-08-10 2019-08-11 [facility] [id number] 02:55:00 16:09:00 Encounter Wes Amin [id number] [place] [id number] [place] [id number] Results Test Description Test Time Test Comments Results Result Sourc e Comments RAD, CHEST, 1 2018-10-03 Reason for FINAL REPORT PATIENT VIEW, NON DEPT 07:50:00 exam:->SOBShoul ID: [id number] CLINICAL d this be HISTORY: SOB performed at TECHNIQUE: 1 view of the the chest. COMPARISON: bedside?->Yes None IMPRESSION: There is pulmonary vascular congestion with prominent lung markings bilaterally. Subpulmonic pleural effusions cannot be excluded. The cardiomediastinal silhouette is magnified by technique. Signed: Franky Hoyt MDReport Verified Date/Time: 10/03/2018 07:50:47 Reading Location: [facility] Radiology Reading Room ESIUM 2018-10-03 07:37:00 Test Item Value Reference Range Interpretation Comme nts MAGNESIUM (BEAKER) (test code = 627) 1.6 mg/dL 1.6-2.6 BASIC METABOLIC [id number] 07:37:00 Test Item Value Reference Range Interpretation [...] DIALYSIS PATIEN TS. Specimen slightly ictericHEPATIC FUNCTION [id number] 07:37:00 Test Item Value Reference Range Interpretation [...] 35 U/L 6-55 347) Specimen slightly ictericPROTHROMBIN [id number] 06:25:00 Test Item Value Reference Range Interpretation [...] mechanical heart valves.CBC W/PLT COUNT & AUTO [id number] 06:16:00 Test Item Value Reference Range Interpretation [...] = 3438) Received comment: User comments: Slide comments:[id number] 05:58:00 Test Item Value Reference Range Interpretation Comments MAGNESIUM (BEAKER) (test code = 1.6 mg/dL 1.6-2.6 627) BASIC METABOLIC [id number] 05:58:00 Test Item Value Reference Range Interpretation [...] DIALYSIS PATIEN TS. Specimen slightly ictericHEPATIC FUNCTION [id number] 05:58:00 Test Item Value Reference Range Interpretation [...] 39 U/L 6-55 347) Specimen slightly ictericPROTHROMBIN [id number] 05:26:00 Test Item Value Reference Range Interpretation [...] mechanical heart valves.CBC W/PLT COUNT & AUTO [id number] 05:20:00 Test Item Value Reference Range Interpretation [...] WBC 0-0 (test code = 413) VITAMIN [id number] 06:57:00 Test Item Value Reference Range Interpretation Comments VITAMIN B12 (BEAKER) (test code = 178 pg/mL 213-816 L 774) [id number] 06:57:00 Test Item Value Reference Range Interpretation Comments FERRITIN (BEAKER) (test code = 361) 21 ng/mL 5-275 FOLATE, [id number] 06:57:00 Test Item Value Reference Range Interpretation [...] 28 % 20-55 (test code = 2590) [id number] 05:59:00 Test Item Value Reference Range Interpretation Comments MAGNESIUM (BEAKER) (test code = 1.7 mg/dL 1.6-2.6 627) BASIC METABOLIC [id number] 05:59:00 Test Item Value Reference Range Interpretation [...] FOR DIALYSIS PATIEN TS. Specimen slightly ictericLIPID [id number] 05:59:00 Test Item Value Reference Range Interpretation [...] Very High >=190 Specimen slightly ictericHEPATIC FUNCTION [id number] 05:59:00 Test Item Value Reference Range Interpretation [...] = 41 U/L 6-55 347) Specimen slightly [id number] 05:59:00 Test Item Value Reference Range Interpretation Comments LIPASE (BEAKER) (test code = 749) 35 U/L 8-78 Specimen slightly ictericPROTHROMBIN [id number] 05:58:00 Test Item Value Reference Range Interpretation [...] mechanical heart valves.CBC W/PLT COUNT & AUTO [id number] 05:37:00 Test Item Value Reference Range Interpretation [...] PERCENT (BEAKER) (test code = 2801) POCT-HEMOGLOBIN [id number] 06:12:00 Test Item Value Reference Range Interpretation Comments POC-HEMOGLOBIN METER 8.6 g/dL 12.0-15.[address] [facility] [address] (MARITZALEONELA) (test code = [place] [id number])
--- OUTSIDE RECORDS SUMMARY | 2019-10-23 12:53 | XMS REPORT ---
[...] End Status Dosage System Date Date Pantoprazole [facility] [address]-81 Active not Sodium defined Acetaminophen-C [facility] [address]-12 Active no t odeine #3 defined Oseltamivir [facility] [address]-03 Active not Phosphate defined Levofloxacin [facility] [address]-29 Active not defined Xifaxan [facility] [address]-02 Active not defined Lactulose [facility] [address]-56 Active not defined Albuterol [facility] [address]-79 Active not Sulfate HFA defined Azithromycin [facility] [address]-10 Active not defined Amoxicillin-Pot [facility] [address]-98 Active no t Clavulanate defined Meloxicam [facility] 68719182166 7.5 MG Orally September 17October Active 1 t ablet Once a day 2019 Results No Known Results Summary Purpose eClinicalWorks Submission
--- OUTSIDE RECORDS SUMMARY | 2019-10-23 12:53 | XMS REPORT | Clinical Summary ---
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
--- OUTSIDE RECORDS SUMMARY | 2019-10-23 12:53 | XMS REPORT | Clinical Summary ---
:1960 Author Organization [facility] Address [address] [place] [address] Care Team Providers Name Role Phone Usman [...] Not on file Results Not on fileafter 10/22/2018 Advance Directives For more information, please contact:[place] [phone] [place], [place] [phone] Code Status Date Activated Date Inactivated Comments Full Code 09/30/2018 8:45 PM 10/03/2018 7:37 PM This code status was determined by: Patient
--- OUTSIDE RECORDS SUMMARY | 2019-10-23 12:53 | XMS REPORT ---
[...] End Status Dosage System Date Date Meloxicam [facility] NAMED [facility] 22269257534 7.5 MG Orally September 17October Active 1 t ablet Once a day 2019 Lactulose FORMERLY NAMED [facility] [address]-76 Active not defined Xifaxan FORMERLY NAMED [facility] [address]-56 Active not defined Oseltamivir FORMERLY NAMED [facility] [address]-24 Active not Phosphate defined Acetaminophen-C FORMER[facility] NAMED [facility] [address]-69 Active no t odeine #3 defined Levofloxacin FORMER[facility] NAMED [facility] [address]-72 Active not defined Albuterol FORMERLY NAMED [facility] 58462693854 Active not Sulfate HFA defined Azithromycin FORMERLY NAMED [facility] [address]-90 Active not defined Amoxicillin-Pot FORMER[facility] NAMED [facility] [address]-54 Active no t Clavulanate defined Pantoprazole FORMERLY NAMED [facility] [address]-15 Active not Sodium defined Results No Known Results Summary Purpose eClinicalWorks Submission
[2019-10-23 13:39] VITALS: BP 126/34; TEMP 98.4; O2SAT 97
--- NOTE | 2019-10-23 21:34 | OP ---
Date of Procedure: 10/23/2019 Surgeon: Eneida Leonard MD Preoperative Diagnosis: Postmenopausal bleeding. Postoperative Diagnosis: Postmenopausal bleeding. Procedure Performed: Hysteroscopy, dilation and curettage. Anesthesia: MAC plus paracervical block. Specimens: Endometrial curettings. Complications: No complications. Drains: No drains. Condition: Stable. Findings: Endometrial cavity completely empty with both tubal ostia well visualized. The entire cav ity sounded to 8 cm. No irregularity in the endometrium was noted. There was some cystic endometria l change in the very lower part of the endometrial canal. Cervix was unremarkable. Scant amount of curettings were obtained and they were sent for permanent pathology. The patient is a 59-year-old female with history of breast cancer in 1997. Has been cancer-free afte r her treatments, went through menopause at age 47, about 12-13 years ago. She had no episodes of po stmenopausal bleeding prior to now. She started with a very heavy bleed on Tuesday morning, which was 3 days ago, was seen in the ER. An ultrasound was performed and she had an endometrial lining that was very thick and heterogeneous. No other adnexal masses were seen. She was referred to me. I had seen the patient same day in the office, examined her. There were large clots in the vaginal canal. Her cervix, which appeared to be flushed with the vagina. Slight scarring in the posterior aspect on the posterior lip. No tissue noted at the time and on exam, she had no fundal tenderness. No adn exal masses were noted. Cervix appeared to be unremarkable due to the large amount of blood. 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 She was consented for cavity visualization and sampling to rule out endometrial atypia, polyp or ann-marie gnancy. She was consented and brought to the OR. Description Of Procedure: After informed consent was verified, she was taken back to OR, placed in a supine fashion on the operating table. Very minimal blood was seen in the vaginal canal at this crystal e. Injected the anterior lip with 1% lidocaine mixed with 1:100,000 epinephrine, 10 cc was given her e. The single-tooth tenaculum was placed for traction. Then, 2 Allis clamps were placed at 4 and 8 o'clock positions. Cervical paracervical block was given in the usual fashion, 5 cc on each side. Prep x3 with Betadine was done. Diagnostic SlimLine hysteroscope was used to enter the cervical naomi l and traversed under direct visualization into the uterine canal. The sounding length to the top of the fundus was about 8 cm, both findings as dictated above, unremarkable cavity. Scope pulled out. Endometrial curettings were performed with a 0 curette and they were handed off for permanent pathol ogy. All the instruments were removed. Instrument and sponge counts were correct at the end of the case. She tolerated the procedure well. She has a 1 week followup appointment with me. She was giv en instructions to use ibuprofen and Tylenol at home for cramping. She has Provera if her bleeding r eturns and is very heavy. MIO/DWAYNE Voice ID: [id number] Report ID: [id number]
== END 2019-10-23 13:25 | disposition home or self-care (01) ==
LOC: OR 09:06
PROVIDERS: ATTEND Obstetrics & Gynecology
PROC: 0UJD8ZZ Inspection of Uterus and Cervix, Via Natural or Artificial Opening Endoscopic (ICD-10-PCS; 2019-10-23)
PROC: 0UDB7ZX Extraction of Endometrium, Via Natural or Artificial Opening, Diagnostic (ICD-10-PCS; principal; 2019-10-23 10:30)
DX: N95.0 Postmenopausal bleeding (principal); K74.60 Unspecified cirrhosis of liver; K76.0 Fatty (change of) liver, not elsewhere classified; Z11.59 Encounter for screening for other viral diseases; Z85.3 Personal history of malignant neoplasm of breast; Z90.49 Acquired absence of other specified parts of digestive tract; Z88.6 Allergy status to analgesic agent; Z80.3 Family history of malignant neoplasm of breast; Z83.3 Family history of diabetes mellitus; Z82.49 Family history of ischemic heart disease and other diseases of the circulatory system
CPT/HCPCS: 88305; 58558; U0002; J2704 ×2; J2250; J3010; J7120; J7030

== ENCOUNTER 2019-11-19 14:08 | Emergency (ER) | payer OTHER ==
[2019-11-19] MEDS ORDERED: MEPERIDINE HCL 50 MG/ML ONE ×2 (14:51→17:02)
[2019-11-19] MEDS ORDERED: ONDANSETRON 4 MG/2 ML VIAL ONE (14:51)
--- NOTE | 2019-11-19 15:37 | RAD REPORT ---
EXAM DESCRIPTION: CT - Abdomen Pelvis W Contrast - 11/19/2019 3:23 pm CLINICAL HISTORY: abd pain COMPARISON: Abdomen Pelvis W Contrast dated 08/12/2019 TECHNIQUE: Biphasic, helical CT imaging of the abdomen and pelvis was performed following 100 ml non -ionic IV contrast. No oral contrast administered. All CT scans are performed using dose optimization technique as appropriate and may include automated exposure control or mA/KV adjustment according to patient size. FINDINGS: No suspicious findings in the lung bases. Liver again demonstrates a prominent nodular capsule contour. This cirrhosis liver pattern has not ch anged. No focal liver lesion identified. No portal vein abnormality seen. Cholecystectomy clips are p resent. No biliary tree dilatation. Splenomegaly to 19 cm present similar to comparison. No pancreati c or peripancreatic acute finding. Symmetric renal function is seen with no hydronephrosis or suspicious renal mass. No pyelonephritis o r acute parenchymal process. No bladder abnormalities. No adrenal abnormalities. Uterus and ovaries s how no suspicious findings. No dilated bowel loops or bowel wall thickening. Appendix is not clearly defined. No acute appendicit is findings suspected. No active GI process evident. No free air, free fluid or inflammatory strandin g. No hernia, mass or bulky lymphadenopathy. No suspicious bony findings. IMPRESSION: No acute or emergent CT abdomen or pelvis finding. Above detailed findings are similar to the August 11 study.
--- OUTSIDE RECORDS SUMMARY | 2019-11-19 15:55 | XMS REPORT | Clinical Summary ---
:1960 Author Organization [facility] Address [address] [place] [address] Care Team Providers Name Role Phone Usman [...] function times daily. due to liver disease Active Problems Problem Noted Date Epigastric abdominal [...] Not on file Results Not on fileafter 11/18/2018 Advance Directives For more information, please contact:[address] [phone] Code Status Date Activated Date Inactivated Comments Full Code 09/30/2018 8:45 PM 10/03/2018 7:37 PM This code status was determined by: Patient
--- OUTSIDE RECORDS SUMMARY | 2019-11-19 15:55 | XMS REPORT | Continuity of Care Document ---
:1960 Author Organization [facility] t Address [address] [place] [address] Care Team Providers Name Role Phone Ruth [...] of [facility] right knee right knee l [facility]pat[facility] ent Clinics Primary Primary Diagnosis Active [facility] left knee left knee l [facility] Clinics Allergies, Adverse Reactions, Alerts [...] Info Not [facility] Reaction Available [facility] Social History Social Habit Start Date Stop Date Quantity Comments Source Sex Assigned At [facility] Smoking Status Start Date Stop Date Source Never smoker [facility] Medications Ordered Filled Start Stop Current Ordering Indication Dosage Frequency Signature Comments Components Source Medication Medication Date Date Medication? Clinician (SIG) Name Name Meloxicam Meloxicam 2020- Yes Gm [address] [facility] - 07- Singh [facility] 00:[facility]: 00:00 [facility] 00 :00 l [facility] lactulose Yes 10g Q.5D Take 10 g [...] Singh defined [facility] - [facility]ics Acetaminoph Acetaminoph Yes Gm not [facility] en-Codeine en-Codeine [facility] defined [facility] Oseltamivir Oseltamivir Yes Gm not [facility] Phosphate Phosphate Singh defined [facility] Levofloxaci Levofloxaci Yes Gm not [facility] n n Singh defined [facility] Xifaxan Xifaxan Yes Gm not [facility] Singh defined [facility] Lactulose Lactulose Yes Gm not [facility] Singh defined [facility] Albuterol Albuterol Yes Gm not [facility] Sulfate HFA Sulfate HFA Singh defined [facility] Azithromyci Azithromyci Yes Gm not [facility] n Singh defined [facility] Amoxicillin Amoxicillin Yes Gm not [facility] -Pot -Pot Singh defined [facility] - Clavulanate Clavulanate M [facility] Procedures This patient has no known procedures. Plan of Care Planned Activity Planned Date Details Comments Source Future Scheduled 2019-11-10 INFLUENZA VACCINE [place] 00:00:00 [code = INFLUENZA VACCINE] Future Scheduled 2011 BREAST CANCER [facility] Test 00:00:00 SCREENING [code = BREAST CANCER SCREENING] Future Scheduled 2011 [facility]:00 [code = COLONOSCOPY SCREENING] Future Scheduled 2011 SHINGLES VACCINES [place] [facility] 00:00:00 (#1) [code = SHINGLES VACCINES (#1)] Future Scheduled 1982 Screening for [facility] Test 00:00:00 malignant neoplasm of cervix (procedure) [code = 250310209] Encounters Start End Encounter Admission Attending Care Care Encounter Source Date/Time Date/Time Type Type Clinicians Facility Department ID 2019-09-28 2019-09-28 [facility]patient [facility] [id number] [facility] 09:00[facility]00 09[facility]00[facility]00 t [facility] 2019-09-18 2019-09-18 [facility] [id number] [address] 09:30:00 09:30:00 t [facility] 2019-08-14 2019-08-14 Transition Jocelyne Alexandra [id number] 00:00:00 00:00:00 of Care Jovanny A Deepak [id number] [place] [id number] 2019-08-10 2019-08-11 [facility] [id number] 02:55:00 16:09:00 Encounter Wes Amin [id number] [place] [id number] [place] [id number] Results Test Description Test Time Test Comments Results Result Sourc e Comments RAD, CHEST, 1 2018-10-03 Reason for FINAL REPORT PATIENT VIEW, NON DEPT 07:50:00 exam:->Lydia ID: [id number] CLINICAL d this be HISTORY: SOB performed at TECHNIQUE: 1 view of the the chest. COMPARISON: bedside?->Yes None IMPRESSION: There is pulmonary vascular congestion with prominent lung markings bilaterally. Subpulmonic pleural effusions cannot be excluded. The cardiomediastinal silhouette is magnified by technique. Signed: Franky Hoyt MDReport Verified Date/Time: 10/03/2018 07:50:47 Reading Location: [facility] Radiology Reading Room ESIUM 2018-10-03 07:37:00 Test Item Value Reference Range Interpretation Comme nts MAGNESIUM (BEAKER) (test code = 627) 1.6 mg/dL 1.6-2.6 BASIC METABOLIC [id number] 07:37:00 Test Item Value Reference Range Interpretation [...] DIALYSIS PATIEN TS. Specimen slightly ictericHEPATIC FUNCTION [id number] 07:37:00 Test Item Value Reference Range Interpretation [...] 35 U/L 6-55 347) Specimen slightly ictericPROTHROMBIN [id number] 06:25:00 Test Item Value Reference Range Interpretation [...] mechanical heart valves.CBC W/PLT COUNT & AUTO [id number] 06:16:00 Test Item Value Reference Range Interpretation [...] = 3438) Received comment: User comments: Slide comments:[id number] 05:58:00 Test Item Value Reference Range Interpretation Comments MAGNESIUM (BEAKER) (test code = 1.6 mg/dL 1.6-2.6 627) BASIC METABOLIC [id number] 05:58:00 Test Item Value Reference Range Interpretation [...] DIALYSIS PATIEN TS. Specimen slightly ictericHEPATIC FUNCTION [id number] 05:58:00 Test Item Value Reference Range Interpretation [...] 39 U/L 6-55 347) Specimen slightly ictericPROTHROMBIN [id number] 05:26:00 Test Item Value Reference Range Interpretation [...] mechanical heart valves.CBC W/PLT COUNT & AUTO [id number] 05:20:00 Test Item Value Reference Range Interpretation [...] WBC 0-0 (test code = 413) VITAMIN [id number] 06:57:00 Test Item Value Reference Range Interpretation Comments VITAMIN B12 (BEAKER) (test code = 178 pg/mL 213-816 L 774) [id number] 06:57:00 Test Item Value Reference Range Interpretation Comments FERRITIN (BEAKER) (test code = 361) 21 ng/mL 5-275 FOLATE, [id number] 06:57:00 Test Item Value Reference Range Interpretation [...] 28 % 20-55 (test code = 2590) [id number] 05:59:00 Test Item Value Reference Range Interpretation Comments MAGNESIUM (BEAKER) (test code = 1.7 mg/dL 1.6-2.6 627) BASIC METABOLIC [id number] 05:59:00 Test Item Value Reference Range Interpretation [...] FOR DIALYSIS PATIEN TS. Specimen slightly ictericLIPID [id number] 05:59:00 Test Item Value Reference Range Interpretation [...] Very High >=190 Specimen slightly ictericHEPATIC FUNCTION [id number] 05:59:00 Test Item Value Reference Range Interpretation [...] = 41 U/L 6-55 347) Specimen slightly [id number] 05:59:00 Test Item Value Reference Range Interpretation Comments LIPASE (BEAKER) (test code = 749) 35 U/L 8-78 Specimen slightly ictericPROTHROMBIN [id number] 05:58:00 Test Item Value Reference Range Interpretation [...] mechanical heart valves.CBC W/PLT COUNT & AUTO [id number] 05:37:00 Test Item Value Reference Range Interpretation [...] PERCENT (BEAKER) (test code = 2801) POCT-HEMOGLOBIN [id number] 06:12:00 Test Item Value Reference Range Interpretation Comments POC-HEMOGLOBIN METER 8.6 g/dL 12.0-15.[address] [facility] 67[address] (BEAKER) (test code = [place] [address] 7519)
--- OUTSIDE RECORDS SUMMARY | 2019-11-19 15:55 | XMS REPORT | Clinical Summary ---
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
--- OUTSIDE RECORDS SUMMARY | 2019-11-19 15:55 | XMS REPORT ---
[...] End Status Dosage System Date Date Meloxicam [facility] 68756587143 7.5 MG Orally September 17October Active 1 t ablet Once a day 2019 Lactulose [facility] [address]-52 Active not defined Xifaxan [facility] [address]-99 Active not defined Oseltamivir [facility] [address]-49 Active not Phosphate defined Acetaminophen-C [facility] [address]-11 Active no t odeine #3 defined Levofloxacin [facility] [address]-76 Active not defined Albuterol [facility] 85486115020 Active not Sulfate HFA defined Azithromycin [facility] [address]-28 Active not defined Amoxicillin-Pot [facility] [address]-89 Active no t Clavulanate defined Pantoprazole [facility] [address]-90 Active not Sodium defined Results No Known Results Summary Purpose eClinicalWorks Submission
--- OUTSIDE RECORDS SUMMARY | 2019-11-19 15:55 | XMS REPORT ---
[...] End Status Dosage System Date Date Pantoprazole [facility] [address]-93 Active not Sodium defined Acetaminophen-C [facility] [address]-48 Active no t odeine #3 defined [address]tam[address] [facility] [address]-83 Active not Phosphate defined Levofloxacin [facility] [address]-03 Active not defined Xifaxan [facility] [address]-67 Active not defined Lactulose [facility] [address]-32 Active not defined Albuterol [facility] [address]-20 Active not Sulfate HFA defined Azithromycin [facility] [address]-89 Active not defined Amoxicillin-Pot [facility] [address]-32 Active no t Clavulanate defined Meloxicam [facility] 95069776658 7.5 MG Orally September 17October Active 1 t ablet Once a day 2019 Results No Known Results Summary Purpose eClinicalWorks Submission
--- NOTE | 2019-11-20 07:28 | ER ---
Nurse's Notes [facility] Name: Zenaida Goss Age: 59 yrs Sex: Female : 1960 Arrival Date: 11/19/2019 Time: 14:14 Bed 5 Private MD: Diagnosis: Lower abdominal pain, unspecified Presentation: 11/18 14:18 Chief complaint: Patient states: Lower abd cramping for 3 days, worse today. States she ll1 is scheduled for a hysterectomy . Coronavirus screen: Client denies travel out of the [place] in the last 14 days. At this time, the client does not indicate any symptoms associated with coronavirus-19. Ebola Screen: Patient denies travel to an Ebola-affected area in the 21 days before illness onset. Initial Sepsis Screen: Does the patient meet any 2 criteria? No. Patient's initial sepsis screen is negative. Risk Assessment: Do you want to hurt yourself or someone else? Patient reports no desire to harm self or others. Onset of symptoms was November 16, 2019. 14:18 Method Of Arrival: Ambulatory ll1 14:18 Acuity: TANK 3 ll1 Historical: - Allergies: 14:20 Morphine (Anaphylaxis); ll1 - PMHx: 14:20 Anemia; breast cancer; Cirrhosis; fatty liver; Pancreatitis; varices; ll1 - PSHx: 14:20 Cholecystectomy; R lumpectomy; ll1 - Immunization history:: Flu vaccine is up to date. - Social history:: Smoking status: Patient denies any tobacco usage or history of. Patient/guardian denies using alcohol, street drugs, tobacco products. - Family history:: not pertinent. - Hospitalizations: : The patient was recently seen at [facility]. Screenin:00 Abuse screen: Denies threats or abuse. Denies injuries from another. Nutritional jr10 screening: No deficits noted. Tuberculosis screening: No symptoms or risk factors identified. Fall Risk IV access (20 points). Assessment: 15:00 General: Appears uncomfortable, Behavior is appropriate for age. Pain: Complains of jr10 pain in abdomen. Pain: Pain currently is 8 out of 10 on a pain scale. Quality of pain is described as crampy. Neuro: No deficits noted. Cardiovascular: No deficits noted. Respiratory: No deficits noted. Respiratory: Airway is patent Respiratory effort is even, unlabored, Respiratory pattern is regular, symmetrical, Denies shortness of breath. GI: Abdomen is round obese, Bowel sounds present X 4 quads. Abd is soft and non tender Reports lower abdominal pain, upper abdominal pain, Patient currently denies diarrhea, nausea, vomiting. : Denies vaginal bleeding, reports that she is getting a hysterectomy on for abnormal bleeding; denies any vaginal bleeding at this time. EENT: No deficits noted. No signs and/or symptoms were reported regarding the EENT system. Derm: No deficits noted. No signs and/or symptoms reported regarding the dermatologic system. Musculoskeletal: No deficits noted. No signs and/or symptoms reported regarding the musculoskeletal system. Vital Signs: 14:18 BP 130 / 102; Pulse 78; Resp 18; Temp 98.3; Pulse Ox 99% ; Weight 117.93 kg; Height 5 ll1 ft. 4 in. (162.56 cm); Pain 10/10; 15:56 BP 119 / 53; Pulse 78; Resp 20; Pulse Ox 98% on R/A; jr10 17:00 BP 126 / 56; Pulse 72; Resp 18; Pulse Ox 98% on R/A; jr10 14:18 Body Mass Index 44.63 (117.93 kg, 162.56 cm) ll1 ED Course: 14:14 Patient arrived in ED. ds1 14:20 Triage completed. ll1 14:20 Arm band placed on Patient placed in an exam room, on a stretcher. ll1 14:26 Marcio Stone MD is Attending Physician. rn 14:33 Chante Chase RN is Primary Nurse. jr10 15:00 Patient has correct armband on for positive identification. Bed in low position. Call jr10 light in reach. Side rails up X2. Pulse ox on. NIBP on. 15:00 Inserted saline lock: 20 gauge in left wrist, using aseptic technique. Missed jr10 attempt(s): 20 gauge in left antecubital area. 22 gauge in left upper arm. IV is patent, is intact, with good blood return, Flushed. 16:01 No provider procedures requiring assistance completed. jr10 17:19 Eneida Leonard MD is Referral Physician. rn 17:49 IV discontinued, intact, bleeding controlled, No redness/swelling at site. Pressure jr10 dressing applied. Administered Medications: 15:10 Drug: Zofran (Ondansetron) 4 mg Route: IVP; Site: left wrist; jr10 15:47 Follow up: Response: No adverse reaction jr10 15:14 Drug: Demerol 25 mg Route: IVP; Site: left wrist; jr10 15:47 Follow up: Response: No adverse reaction; Pain is decreased jr10 17:00 Drug: Demerol 25 mg Route: IVP; Site: left wrist; jr10 Outcome: 17:19 Discharge ordered by . rn 17:49 Discharged to home ambulatory. jr10 17:49 Condition: good 17:49 Discharge instructions given to patient, Instructed on discharge instructions, follow up and referral plans. Demonstrated understanding of instructions, follow-up care. 17:49 Patient left the ED. jr10 Signatures: Katarina Ritchie ds1 Marcio Stone MD MD rn Lewis, Lynsay, RN RN ll1 Chante Chase RN RN jr10
--- NOTE | 2019-11-20 07:28 | EDPHYS ---
Physician Documentation [facility] Name: Zenaida Goss Age: 59 yrs Sex: Female : 1960 Arrival Date: 11/19/2019 Time: 14:14 Bed 5 Private MD: ED Physician Marcio Stone HPI: 11/18 14:34 This 59 yrs old Female presents to ER via Ambulatory with complaints of rn Abdominal Cramping. 14:34 The patient presents to the emergency department with abdominal pain, of the suprapubic rn area. 14:34 The patient presents with abdominal pain in the lower abdomen. Onset: The rn symptoms/episode began/occurred 2 week(s) ago. The symptoms do not radiate. Associated signs and symptoms: Pertinent positives: nausea, Pertinent negatives: anorexia, blood in stools, constipation, fever, hematuria, vaginal discharge, vomiting. The symptoms are described as crampy. Modifying factors: The symptoms are alleviated by nothing, the symptoms are aggravated by touching the area. Severity of pain: At its worst the pain was moderate in the emergency department the pain is unchanged. The patient has experienced similar episodes in the past. Reports having 2 weeks of abdominal cramping, since she had d\T\c for vaginal hemorrhage. Reports cramping is worse, seen by Dr. Leonard today and sent here for pain. No vaginal bleeding or discharge. Told by [employer] [employer] that this is expected cramping. Has surgery scheduled this . No fever/trauma/blood in stool/urinary symptoms. . Historical: - Allergies: 14:20 Morphine (Anaphylaxis); ll1 - PMHx: 14:20 Anemia; breast cancer; Cirrhosis; fatty liver; Pancreatitis; varices; ll1 - PSHx: 14:20 Cholecystectomy; R lumpectomy; ll1 - Immunization history:: Flu vaccine is up to date. - Social history:: Smoking status: Patient denies any tobacco usage or history of. Patient/guardian denies using alcohol, street drugs, tobacco products. - Family history:: not pertinent. - Hospitalizations: : The patient was recently seen at [facility]. ROS: 14:34 Constitutional: Negative for fever, chills, and weight loss, Eyes: Negative for injury, rn pain, redness, and discharge, Cardiovascular: Negative for chest pain, palpitations, and edema, Respiratory: Negative for shortness of breath, cough, wheezing, and pleuritic chest pain, Abdomen/GI: + lower abd pain Back: Negative for injury and pain, : Negative for injury, bleeding, discharge, and swelling, MS/Extremity: Negative for injury and deformity, Skin: Negative for injury, rash, and discoloration, Neuro: Negative for headache, weakness, numbness, tingling, and seizure. Exam: 14:34 Constitutional: This is a well developed, well nourished patient who is awake, alert, rn appears uncomfortable, sitting straight up Head/Face: Normocephalic, atraumatic. Cardiovascular: Regular rate and rhythm. No pulse deficits. Respiratory: No increased work of breathing, no retractions or nasal flaring. Abdomen/GI: soft, mild suprapubic tenderness, no rebound Skin: Warm, dry MS/ Extremity: Pulses equal, no cyanosis. Neuro: Awake and alert, GCS 15 Vital Signs: 14:18 BP 130 / 102; Pulse 78; Resp 18; Temp 98.3; Pulse Ox 99% ; Weight 117.93 kg; Height 5 ll1 ft. 4 in. (162.56 cm); Pain 10/10; 15:56 BP 119 / 53; Pulse 78; Resp 20; Pulse Ox 98% on R/A; jr10 17:00 BP 126 / 56; Pulse 72; Resp 18; Pulse Ox 98% on R/A; jr10 14:18 Body Mass Index 44.63 (117.93 kg, 162.56 cm) ll1 MDM: 14:26 Patient medically screened. rn 16:50 Differential diagnosis: complication of D\T\C, kidney stone, infection. Data reviewed: rn vital signs, nurses notes, radiologic studies, CT scan, and as a result, I will discharge patient. Counseling: I had a detailed discussion with the patient and/or guardian regarding: the historical points, exam findings, and any diagnostic results supporting the discharge/admit diagnosis, radiology results, the need for outpatient follow up, to return to the emergency department if symptoms worsen or persist or if there are any questions or concerns that arise at home. Response to treatment: the patient's symptoms have markedly improved after treatment, and as a result, I will discharge patient. Special discussion: Based on the patient's Hx, exam, and Dx evaluation, there is no indication for emergent surgery or inpatient Tx. It is understood by the patient/guardian that if the Sx's persist or worsen they need to return immediately for re-evaluation. I discussed with the patient/guardian in detail that at this point there is no indication for admission to the hospital. It is understood, however, that if the symptoms persist or worsen the patient needs to return immediately for re-evaluation. Based on the history and exam findings, there is no indication for further emergent testing or inpatient evaluation. I discussed with the patient/guardian the need to see the OB Gyne specialist for further evaluation of the symptoms. ED course: CT without acute findings, improved with pain medication, awaiting labs, anticipate dc home with [facility] f/u for her surgery in 2 days, if symptoms worsen, can return or contact Dr. Leonard. . 11/18 14:33 Order name: IV Saline Lock; Complete Time: 15:15 rn 11/18 14:33 Order name: Labs collected and sent; Complete Time: 15:15 rn Administered Medications: 15:10 Drug: Zofran (Ondansetron) 4 mg Route: IVP; Site: left wrist; jr10 15:47 Follow up: Response: No adverse reaction jr10 15:14 Drug: Demerol 25 mg Route: IVP; Site: left wrist; jr10 15:47 Follow up: Response: No adverse reaction; Pain is decreased jr10 17:00 Drug: Demerol 25 mg Route: IVP; Site: left wrist; jr10 Disposition: 11/19/19 17:19 Discharged to Home. Impression: Lower abdominal pain, unspecified. - Condition is Stable. - Discharge Instructions: Abdominal Pain, Adult, Pain Without a Known Cause. - Medication Reconciliation Form, Thank You Letter, Antibiotic Education, Prescription Opioid Use form. - Follow up: Eneida Leonard; When: As needed; Reason: Recheck today's complaints, Re-evaluation by your physician. - Problem is new. - Symptoms have improved. Signatures: Marcio Stone MD MD rn Lewis, Lynsay, RN RN ll1 Chante Chase RN RN jr10 Corrections: (The following items were deleted from the chart) 17:49 17:19 11/19/2019 17:19 Discharged to Home. Impression: Lower abdominal pain, jr10 unspecified. Condition is Stable. Discharge Instructions: Abdominal Pain, Adult, Pain Without a Known Cause. Forms are Medication Reconciliation Form, Thank You Letter, Antibiotic Education, Prescription Opioid Use. Follow up: Eneida Leonard; When: As needed; Reason: Recheck today's complaints, Re-evaluation by your physician. Problem is new. Symptoms have improved. rn
[2019-11-20 09:04] VITALS: TEMP 98.3
[2019-11-20 09:05] VITALS: O2SAT 98
[2019-11-20 09:07] VITALS: BP 126/56
== END 2019-11-19 17:49 | disposition home or self-care (01) ==
LOC: ER 14:08
DX: R10.30 Lower abdominal pain, unspecified (principal); Z85.3 Personal history of malignant neoplasm of breast; Z88.5 Allergy status to narcotic agent
CPT/HCPCS: 82565; 74177; 96375; 96374; 99283; Q9967; J2175 ×2; J2405

== ENCOUNTER 2019-11-22 06:17 | Day surgery (SDC) | payer OTHER ==
[2019-11-19 17:09] LABS: Absolute Lymphocytes (CBC) 0.8 K/uL (0.7-4.9); Basophils % 0.7 % (0-1.3); Hematocrit 38.5 % (36.0-45.0); Lymphocytes % 17.8 % (15.3-44.8); RBC Red Blood Cell Count 3.98 M/uL (3.86-4.86)
[2019-11-19 17:12] LABS: ALT/SGPT 68 U/L (12-78); Albumin 3.2 g/dL (3.4-5.0); Alkaline Phosphatase 107 U/L (45-117); BUN Blood Urea Nitrogen 11 mg/dL (7-18); Bicarbonate 25 mmol/L (21-32); Bilirubin Direct 0.4 mg/dL (0-0.2); Bilirubin Total 1.6 mg/dL (0.2-1.0); Glucose Level 116 mg/dL (74-106); Protein, Total 6.9 g/dL (6.4-8.2); Sodium Level 142 mmol/L (136-145)
[2019-11-19 17:14] LABS: AST/SGOT 51 U/L (15-37); Potassium 4.4 mmol/L (3.5-5.1)
[2019-11-19 18:06] LABS: Platelet Estimate DECR; Urine White Blood Cell Casts OK
[2019-11-19 18:07] LABS: Blood Morphology Comment NOTED (NOT SEEN); Poikilocytosis 1+
[2019-11-19 21:18] LABS: Urine Appearance CLEAR; Urine Color YELLOW
[2019-11-19 21:42] LABS: Urine Bilirubin NEGATIVE (NEG); Urine Glucose NEGATIVE (NEG)
[2019-11-19 21:43] LABS: Urine Blood NEGATIVE (NEG); Urine Microscopic Reflex NO UMIC; Urine Protein NEGATIVE (NEG)
[2019-11-22 06:48] LABS: Specific Gravity 1.025 (1.005-1.030)
[2019-11-22 06:53] LABS: Protime INR 1.07
--- NOTE | 2019-11-22 08:12 | RAD REPORT ---
EXAM DESCRIPTION: Igor Singleton And Corey (2 Views)11/22/2019 8:05 am CLINICAL HISTORY: Preoperative chest x-ray COMPARISON: April 2019 FINDINGS: The lungs appear clear of acute infiltrate. The heart is normal size IMPRESSION: No acute abnormalities displayed
[2019-11-22] MEDS ORDERED: ACETAMINOPHEN 500 MG TAB ONE (08:38)
[2019-11-22] MEDS ORDERED: SCOPOLAMINE HYDROBROMIDE PATCH TD ONE (09:05)
[2019-11-22] MEDS ORDERED: CEFAZOLIN/SWI 1gm 1 GM/10 ML SYR ONE (09:05)
[2019-11-22] MEDS ORDERED: Ringers Lactate 1,000 ML IV ONE (09:05)
--- OUTSIDE RECORDS SUMMARY | 2019-11-22 09:25 | XMS REPORT | Clinical Summary ---
:1960 Author Organization [facility] Address [address] [place] [address] Care Team Providers Name Role Phone Usman [...] Not on file Results Not on fileafter 11/21/2018 Advance Directives For more information, please contact:[address] [phone] Code Status Date Activated Date Inactivated Comments Full Code 09/30/2018 8:45 PM 10/03/2018 7:37 PM This code status was determined by: Patient
--- OUTSIDE RECORDS SUMMARY | 2019-11-22 09:25 | XMS REPORT | Clinical Summary ---
:1960 Author Organization [facility] Address [address] [place] [address] Care Team Providers Name Role Phone MD [...] 2011 SHINGLES VACCINES (#1) 2011 INFLUENZA VACCINE 12/11/2019 Results Not on fileafter 11/21/2018 Advance Directives For more information, please contact: [phone] Type Date Recorded Patient Manager Intermediate Explanati on Advance Directives, Living Will and Medical Power of Consulting Psychologist
--- OUTSIDE RECORDS SUMMARY | 2019-11-22 09:26 | XMS REPORT ---
[...] End Status Dosage System Date Date Pantoprazole [facility] [address]-64 Active not Sodium defined Acetaminophen-C [facility] [address]-24 Active no t odeine #3 defined Oseltamivir [facility] [address]-93 Active not Phosphate defined Levofloxacin [facility] [address]-19 Active not defined Xifaxan [facility] [address]-72 Active not defined Lactulose [facility] [address]-38 Active not defined Albuterol [facility] [address]-01 Active not Sulfate HFA defined Azithromycin [facility] [address]-55 Active not defined Amoxicillin-Pot [facility] [address]-59 Active no t Clavulanate defined Meloxicam [facility] 63743498579 7.5 MG Orally September 17October Active 1 t ablet Once a day 2019 Results No Known Results Summary Purpose eClinicalWorks Submission
--- OUTSIDE RECORDS SUMMARY | 2019-11-22 09:26 | XMS REPORT ---
[...] End Status Dosage System Date Date Meloxicam [facility] 54163572982 7.5 MG Orally September 17October Active 1 t ablet Once a day 2019 Lactulose [facility] [address]-03 Active not defined Xifaxan [facility] [address]-45 Active not defined Oseltamivir [facility] [address]-05 Active not Phosphate defined Acetaminophen-C [facility] [address]-47 Active no t odeine #3 defined Levofloxacin [facility] [address]-75 Active not defined Albuterol [facility] 47459304791 Active not Sulfate HFA defined Azithromycin [facility] [address]-64 Active not defined Amoxicillin-Pot [facility] [address]-45 Active no t Clavulanate defined Pantoprazole [facility] [address]-16 Active not Sodium defined Results No Known Results Summary Purpose eClinicalWorks Submission
--- OUTSIDE RECORDS SUMMARY | 2019-11-22 09:26 | XMS REPORT | Continuity of Care Document ---
:1960 Author Organization [facility] t Address [address] [place] [address] Care Team Providers Name Role Phone Ruth HENSLEY Primary Care Physician Nasrin REYES, A Attending Clinician Unavailable lAisha HENSLEY Attending Clinician SHAYY DAVEY Attending Clinician [...] of Memoria right knee right knee l [facility]ics Primary [facility] Diagnosis [facility] - [facility] of [facility] of Memoria left knee left knee l [facility] Allergies, Adverse Reactions, Alerts [...] Info Not [facility] Reaction Available [facility] Social History Social Habit Start Date Stop Date Quantity Comments Source Sex Assigned At [facility] Smoking Status Start Date Stop Date Source Never smoker [facility] Medications Ordered Filled Start Stop Current Ordering Indication Dosage Frequency Signature Comments Components Source Medication Medication Date Date Medication? Clinician (SIG) Name Name Meloxicam Meloxicam 2020- Yes Gm [address] [facility] 6-09 07-09 [facility] - 00:00: 00:00 Memoria 00 :00 l [facility] ent [facility] lactulose Yes 10g Q.5D Take [...] Singh defined Luke [facility] - Memoria l [facility]ics Acetaminoph Acetaminoph Yes Gm not [facility] en-Codeine en-Codeine Singh defined [facility] - #3 #3 Memoria l [facility] Oseltamivir Oseltamivir Yes Gm not [facility] Phosphate Phosphate Singh defined [facility] - Memoria l [facility] Levofloxaci Levofloxaci Yes Gm not [facility] n Singh defined [facility] - [facility] ent [facility] Xifaxan Xifaxan Yes Gm not [facility] [...] Planned Date Details Comments Source Future Scheduled 2019-12-11 INFLUENZA VACCINE [place] [facility] 00:00:00 [code = INFLUENZA VACCINE] Future Scheduled 2011 BREAST CANCER [facility] Test 00:00:00 SCREENING [code = BREAST CANCER SCREENING] Future Scheduled 2011 COLONOSCOPY SCREENING [place] [facility] 00:00:00 [code = COLONOSCOPY SCREENING] Future Scheduled 2011 SHINGLES VACCINES [place] [facility] 00:00:00 (#1) [code = SHINGLES VACCINES (#1)] Future Scheduled 1982 Screening for [facility] Test 00:00:00 malignant neoplasm of cervix (procedure) [code = 403427165] Encounters Start End Encounter Admission Attending Care Care Encounter Source Date/Time Date/Time Type Type Clinicians Facility Department ID 2019-09-28 2019-09-28 [facility] [id number] [address] 09:[facility]00 09[facility] 2019-09-18 2019-09-18 [facility] [id number] 09:30:00 09:30:00 [facility] 2019-08-14 2019-08-14 Transition Jocelyne Alexandra [id number] 00:00:00 00:00:00 of Care Jovanny Sotelo [id number] [place] [id number] 2019-08-10 2019-08-11 [facility] [id number] 02:55:00 16:09:00 Encounter Wes Amin [id number] [place] [id number] [place] [id number] Results Test Description Test Time Test Comments Results Result Sourc e Comments RAD, CHEST, 1 2018-10-03 Reason for FINAL REPORT PATIENT VIEW, NON DEPT 07:50:00 exam:->SOBMarquita ID: [id number] CLINICAL d this be HISTORY: SOB performed at TECHNIQUE: 1 view of the the chest. COMPARISON: bedside?->Yes None IMPRESSION: There is pulmonary vascular congestion with prominent lung markings bilaterally. Subpulmonic pleural effusions cannot be excluded. The cardiomediastinal silhouette is magnified by technique. Signed: Franky Hoyt Verified Date/Time: 10/03/2018 07:50:47 Reading Location: [facility] Radiology Reading Room ESIUM 2018-10-03 07:37:00 Test Item Value Reference Range Interpretation Comme nts MAGNESIUM (BEAKER) (test code = 627) 1.6 mg/dL 1.6-2.6 BASIC METABOLIC [id number] 07:37:00 Test Item Value Reference Range Interpretation [...] DIALYSIS PATIEN TS. Specimen slightly ictericHEPATIC FUNCTION [id number] 07:37:00 Test Item Value Reference Range Interpretation [...] 35 U/L 6-55 347) Specimen slightly ictericPROTHROMBIN [id number] 06:25:00 Test Item Value Reference Range Interpretation [...] mechanical heart valves.CBC W/PLT COUNT & AUTO [id number] 06:16:00 Test Item Value Reference Range Interpretation [...] = 3438) Received comment: User comments: Slide comments:[id number] 05:58:00 Test Item Value Reference Range Interpretation Comments MAGNESIUM (BEAKER) (test code = 1.6 mg/dL 1.6-2.6 627) BASIC METABOLIC [id number] 05:58:00 Test Item Value Reference Range Interpretation [...] DIALYSIS PATIEN TS. Specimen slightly ictericHEPATIC FUNCTION [id number] 05:58:00 Test Item Value Reference Range Interpretation [...] 39 U/L 6-55 347) Specimen slightly ictericPROTHROMBIN TIME/[id number] 05:26:00 Test Item Value Reference Range Interpretation [...] mechanical heart valves.CBC W/PLT COUNT & AUTO [id number] 05:20:00 Test Item Value Reference Range Interpretation [...] WBC 0-0 (test code = 413) VITAMIN [id number] 06:57:00 Test Item Value Reference Range Interpretation Comments VITAMIN B12 (BEAKER) (test code = 178 pg/mL 213-816 L 774) [id number] 06:57:00 Test Item Value Reference Range Interpretation Comments FERRITIN (BEAKER) (test code = 361) 21 ng/mL 5-275 FOLATE, [id number] 06:57:00 Test Item Value Reference Range Interpretation [...] 28 % 20-55 (test code = 2590) [id number] 05:59:00 Test Item Value Reference Range Interpretation Comments MAGNESIUM (BEAKER) (test code = 1.7 mg/dL 1.6-2.6 627) BASIC METABOLIC [id number] 05:59:00 Test Item Value Reference Range Interpretation [...] FOR DIALYSIS PATIEN TS. Specimen slightly ictericLIPID [id number] 05:59:00 Test Item Value Reference Range Interpretation [...] Very High >=190 Specimen slightly ictericHEPATIC FUNCTION [id number] 05:59:00 Test Item Value Reference Range Interpretation [...] = 41 U/L 6-55 347) Specimen slightly [id number] 05:59:00 Test Item Value Reference Range Interpretation Comments LIPASE (BEAKER) (test code = 749) 35 U/L 8-78 Specimen slightly ictericPROTHROMBIN [id number] 05:58:00 Test Item Value Reference Range Interpretation [...] mechanical heart valves.CBC W/PLT COUNT & AUTO [id number] 05:37:00 Test Item Value Reference Range Interpretation [...] PERCENT (BEAKER) (test code = 2801) POCT-HEMOGLOBIN [id number] 06:12:00 Test Item Value Reference Range Interpretation Comments POC-HEMOGLOBIN METER 8.6 g/dL 12.0-15.0 L TESTED AT [facility] 6720 (BEAKER) (test code = [place] [address] 1539)
[2019-11-22] MEDS ORDERED: CEFAZOLIN/SWI 2gm 2 GM/20 ML SYR ONE (09:35)
[2019-11-22 10:02] LABS: Absolute Lymphocytes (CBC) 0.8 K/uL (0.7-4.9); Basophils % 0.5 % (0-1.3); Hematocrit 36.3 % (36.0-45.0); Lymphocytes % 23.3 % (15.3-44.8); RBC Red Blood Cell Count 3.79 M/uL (3.86-4.86)
[2019-11-22 10:31] LABS: Blood Morphology Comment NOT SEEN (NOT SEEN); Platelet Estimate DECR; Urine White Blood Cell Casts OK
[2019-11-22] MEDS ORDERED: propofoL 200 MG/20 ML VIAL IV ONE (12:04)
[2019-11-22] MEDS ORDERED: LIDOCAINE 1% MPF 5 ML VIAL ONE (12:04)
[2019-11-22] MEDS ORDERED: MIDAZOLAM HCL 2 MG/2 ML INJ ONE (12:04)
[2019-11-22] MEDS ORDERED: FENTANYL CITR 250 MCG/5 ML ONE (12:05)
[2019-11-22] MEDS ORDERED: NS 0.9% VIAL 10 ML ONE ×2 (12:05→13:57)
[2019-11-22] MEDS ORDERED: VECURONIUM 10 MG/VIAL IV ONE ×3 (12:06→12:09)
[2019-11-22] MEDS ORDERED: LANO/MINERAL OIL/PETRO 3.5 GM ONE (12:08)
[2019-11-22] MEDS: BUPIVACAINE 0.25% PF 30 ML VIAL ONE ×3 (13:25→14:49)
[2019-11-22] MEDS ORDERED: EPHEDRINE SULF 50 MG/ML VIAL ONE (13:57)
[2019-11-22] MEDS ORDERED: dexAMETHasone 10 MG/ML VIAL ONE ×2 (14:23→14:45)
[2019-11-22] MEDS ORDERED: ONDANSETRON 4 MG/2 ML VIAL ONE ×2 (14:24→18:31)
[2019-11-22] MEDS ORDERED: SUCCINYLCHOLINE 20 MG/ML (10 ML) IV ONE (14:42)
[2019-11-22] MEDS: Ringers Lactate 1,000 ML IV ONE ×2 (15:03→15:08)
[2019-11-22] MEDS: HYDROMORPHONE HCL 1 MG/ML INJ ONE ×3 (15:28→17:39)
[2019-11-22] MEDS ORDERED: ROCURONIUM 50 MG/5 ML VIAL IV ONE (16:28)
[2019-11-22] MEDS ORDERED: NA CHLORIDE 0.9% 250 ML ONE (16:50)
[2019-11-22] MEDS ORDERED: NEOSTIGMINE 1 MG/ML -5 ML ONE (16:52)
[2019-11-22] MEDS ORDERED: GLYCOPYRROLATE 0.2 MG/ML SYR ONE ×2 (16:52)
[2019-11-22] MEDS ORDERED: NA CHLORIDE 0.9% 0 ML IV ONE (16:59)
[2019-11-22] MEDS ORDERED: Mastisol Adhesive Liq ONE (17:06)
[2019-11-22] MEDS ORDERED: HYDROMORPHONE HCL 1 MG/ML INJ ONE (17:57)
[2019-11-22 18:08] LABS: Absolute Lymphocytes (CBC) 0.5 K/uL (0.7-4.9); Basophils % 0.2 % (0-1.3); Hematocrit 38.7 % (36.0-45.0); Lymphocytes % 7.1 % (15.3-44.8); MPV 8.8 fL (7.6-11.3)
[2019-11-22 18:42] VITALS: TEMP 97.9
[2019-11-22] MEDS ORDERED: HYDROCODONE/APAP 7.5/325 MG TAB ONE (19:05)
[2019-11-22 19:43] VITALS: BP 134/72; O2SAT 95
[2019-11-22 21:13] LABS: Blood Morphology Comment NOT SEEN (NOT SEEN); Platelet Estimate DECR; Urine White Blood Cell Casts OK
--- NOTE | 2019-11-25 21:35 | OP ---
Date of Procedure: 11/22/2019 Surgeon: Eneida Leonard MD [employer] Teacher: Madeleine Zhao. 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 Postoperative Diagnoses: Pelvic pain, postmenopausal bleeding, history of breast cancer greater than 20 years, child B cirrhosis, thrombocytopenia, and bilateral hydrosalpinges or hematosalpinges. Procedures Performed: Total laparoscopic hysterectomy, bilateral salpingo-oophorectomy, pelvic washi ngs. Anesthesia: General endotracheal. Estimated Blood Loss: 100. Complications: No complications. Drains: No drains. Condition: Stable. Indications: The patient is a 59-year-old new patient to me, presented with postmenopausal bleeding, a large amount of blood loss at the time of the first bleed where she went to the ER at [facility] over to my office the same day, evaluated with ultrasound. Lining appeared to be slightly thickene d. Endometrial sampling was performed. No atypia or malignancy was noted. Bleeding had resolved, h owever, her pelvic pain which was very similar to cramping prior to period was noted. Her pain got s evere enough that she went back to the ER, evaluated again with a CT. No diverticulitis or appendici tis was noted. No postmenopausal bleeding on going at the time. Discussed about all the options abo ut observation with followup, risk of undetected cancer or other pathology in her tubes or ovaries th at could lead to pain. All these were reviewed with the patient. She has not had any period since formerly [facility] breast cancer treatment in her 30s. She was at the time. The patient was very apprehe nsive due to the fact that there was bleeding despite no other contributing pathological findings on testing. Due to the severity of pain as well, she wanted to proceed with a hysterectomy. Discussed about the risks of persistent pain even postoperatively if there was no gynecological pathology that is noted, that could explain the pain. There was a 1/3 chance that there is no resolution of pain, 2 /3 chance that the pain would be resolved, and 1/3 or 5% could get much worse. After understanding a ll this, the patient consented for hysterectomy, BSO, pelvic washings. She had medical clearance bef ore her surgery. However, due to her thrombocytopenia and her ER visit, her PCP, Dr. Salcedo, had mallika rns over her breathing as she was wheezing at the time of her office visit with him and also the fact that there was question of an infiltrate in the bottom of her lungs. She is an established patient of Dr. Branch. She is well aware of her being anemic and status post iron infusions. After postop lab s were done, her platelet count was down, noted at 76,000. On repeat, it was 59,000. As long as the platelet count stayed over 50, surgical bleeding to a large extent was not as likely. I requested a consult from Dr. Branch that her recommendation to have platelets on hold and check her PT, INR, and F FP if INR was over 1.5. However, her INR was 1.07 and there was no need for any FFP. However, plate lets were kept ready just in case there was bleeding during the case and she would be needing platele t transfusion. Her repeat platelet count on the day of surgery was 59,000 from the 70s. Now, pulmon mary consult was obtained with Dr. Bach and he cleared her for surgery. No question of any infilt rates that was suspected by Dr. Salcedo, her PCP when he was getting a report from the CT as well as his correlation with her wheezing. So, cleared from a hematological and pulmonary standpoints and also from the PCP. Discussed again the option of observation versus complications as discussed for bleedi ng, infection, injury to the bowel, bladder, and ureters, being more exaggerated than usual due to he r thrombocytopenia. The patient definitely lean towards proceeding with a hysterectomy at the time f ully understanding the risks and benefits. She has been requesting pain medications at multiple poin ts in time during her care. I have not prescribed any narcotics to her other than what was postop. Description Of Procedure: After informed consent was verified, she was taken back to the OR, placed in supine fashion on the operating table. 2 g of Ancef were given. SCDs were placed. Pumps were st arted. The patient was placed in Trendelenburg. Pelvic exam was performed. Small uterus. No adnex al masses. After prepping and draping the patient in a sterile fashion, Mann was placed to drain the bladder. A medium VCare introduced into the uterus for manipulation and Mann attached for retrograde filling. A 1 cm infraumbilical incision made with a scalpel using the open laparoscopy technique. Fascia wa s incised and fascia tagged with 0 Vicryl sutures. Peritoneum entered sharply. S-retractors were pl aced. After Carline was introduced, insufflation was done adequately and then camera used to check th e site of entry, unremarkable. Above the level of the umbilicus, there was significant adhesions lik hiren from her gallbladder surgery on one of the 2 stitches she has had. Placing the patient in Trendelenburg position, no problems with the rest of the pelvic organs except there were bilateral hydrosalpinges in the distal part of the proximal ends of the tubes. No ovarian pathology seen. Pelvic washings were performed and retrieved. Then, hysterectomy was performed. U tero-ovarian ligament, mesosalpinx tubes were all taken down. Round ligament, broad ligament were al l taken down to skeletonize the vessels on the left side. The vessels seemed really low because the cervix seemed to be embedded further down into the vaginal canal. The same dissection was performed on the opposite side taking down the utero-ovarian ligament, mesosalpinx tube, round ligament, broad ligament, skeletonized the vessels and bladder flap was created and retracted inferiorly, however, th ere was relatively dense adhesions here. It was difficult to dissect the bladder flap. However, thi s was done as best as possible, at least a half a centimeter away from the vaginal colpotomy area. T hen, once the vessels were identified on both sides, they were taken down with the help of the bipola r and then the LigaSure. Once the pedicles were cut, it felt like there was more vascular tissue lef t and so this was cauterized along with the cardinal ligament, went down all the way to the vaginal c uff and on the left side, similar dissection was performed and then once circumferential colpotomy wa s performed from 11 o'clock to 5, then from 5 to 11 o'clock was taken down with the help of the LigaS ure. No evidence of any mechanical, elliptical, or thermal injury to the ureters. Simple 0 Vicryl sutures were placed at both angles. Tube and ovary were taken from the right side on the left side and they were handed out making sure that no part of the hydrosalpinx ruptured within the peritoneal cavity. So, suturing was done in the center with 2 [id number] in a simple 0 Vicryl stitch. There was n o space for putting a third [id number]. Thorough irrigation and suction were done. There was e xcellent hemostasis. Kept 1 unit of platelets ready for transfusion, however, this did not have to b e done because the case had ended and bleeding was 100 for sure. So, the suprapubic trocar, left and right lower quadrant trocars were all removed. The sigmoid epiploica retraction 3-0 Monocryl stitch was removed, that was pulled out through the left upper quadrant using a Maicol-Sosa needle. Th en, once all those were removed, gas was desufflated. Site of entry was ensured to be hemostatic bef ore the camera was taken out essentially once the Carline was removed and gas was desufflated. Fascia brought with the tagged 0 Vicryl sutures tacked and stitched to each other. All the rest of the inc isions closed with interrupted 4-0 Vicryl. The VCare and Mann were removed. The vaginal retractor sponge was removed from the glove. The patient was recovered from anesthesia and taken to PACU in st able condition. At that time, I just decided to give her the pack of platelets just to make sure dev t there would be no bleeding and this was done towards the end. Then, she was discharged home withou t any problems. Sofia was called for narcotic prescription and pain control. She has a 1 week appoi ntment to see us. JARAD Voice ID: [id number] Report ID: [id number]
== END 2019-11-22 19:40 | disposition home or self-care (01) ==
LOC: PRE 06:17
PROVIDERS: ATTEND Obstetrics & Gynecology
PROC: 0UT24ZZ Resection of Bilateral Ovaries, Percutaneous Endoscopic Approach (ICD-10-PCS; 2019-11-22)
PROC: 0UT74ZZ Resection of Bilateral Fallopian Tubes, Percutaneous Endoscopic Approach (ICD-10-PCS; 2019-11-22)
PROC: 0UT94ZZ Resection of Uterus, Percutaneous Endoscopic Approach (ICD-10-PCS; principal; 2019-11-22 11:30)
DX: N95.0 Postmenopausal bleeding (principal); N80.0 Endometriosis of uterus; N70.11 Chronic salpingitis; N83.202 Unspecified ovarian cyst, left side; N83.201 Unspecified ovarian cyst, right side; D69.6 Thrombocytopenia, unspecified; Z11.59 Encounter for screening for other viral diseases; K76.0 Fatty (change of) liver, not elsewhere classified; Z85.3 Personal history of malignant neoplasm of breast; K74.60 Unspecified cirrhosis of liver; I85.10 Secondary esophageal varices without bleeding
CPT/HCPCS: 85025 ×3; 80048; 36415 ×2; 86900; 88108; 86850; 81025 ×2; 85610; 86901; 80076; 88305; 88307; 85730; 81003; 71046; 58571; U0002; J2704; J0330; J2250; J3010; J1100 ×2; J1170 ×2; J2710; J0690 ×2; P9035; J7120 ×2; J7050; J2405 ×2

== ENCOUNTER 2019-11-28 18:27 | Emergency (ER) | payer OTHER ==
--- OUTSIDE RECORDS SUMMARY | 2019-11-28 18:29 | XMS REPORT | Clinical Summary ---
:1960 Author Organization [facility] Address [address] [place] [address] Care Team Providers Name Role Phone Usman [...] Not on file Results Not on fileafter 11/27/2018 Advance Directives For more information, please contact:[address] [phone] Code Status Date Activated Date Inactivated Comments Full Code 09/30/2018 8:45 PM 10/03/2018 7:37 PM This code status was determined by: Patient
--- OUTSIDE RECORDS SUMMARY | 2019-11-28 18:29 | XMS REPORT | Clinical Summary ---
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
--- OUTSIDE RECORDS SUMMARY | 2019-11-28 18:30 | XMS REPORT | Continuity of Care Document ---
:1960 Author Organization [facility] t Address [address] [place] [address] Care Team Providers Name Role Phone Ruth [...] of Memoria right knee right knee l [facility] ent Clinics Primary Primary Diagnosis Active [facility] oste[facility]r [facility] of itis of Memoria left knee left knee l [facility] ent Clinics Allergies, Adverse Reactions, Alerts Allergy [...] Info Not [facility] Reaction Available [facility] Social History Social Habit Start Date Stop Date Quantity Comments Source Sex Assigned At [facility] Smoking Status Start Date Stop Date Source Never smoker [facility] Medications Ordered Filled Start Stop Current Ordering Indication Dosage Frequency Signature Comments Components Source Medication Medication Date Date Medication? Clinician (SIG) Name Name Meloxicam Meloxicam 2020- Yes Gm [address] [facility] 6-09 07-09 [facility] - 00:00: 00:00 Memoria 00 :00 l [facility] ent [facility] lactulose Yes 10g Q.5D Take 10 g [...] Singh defined Luke s - Memoria l [facility] ent Clinics Acetaminoph Acetaminoph Yes Gm not [facility] en-Codeine en-Codeine Singh defined [facility] - #3 #3 Memoria l [facility] ent [facility] Oseltamivir Oseltamivir Yes Gm not [facility] Phosphate Phosphate Singh defined [facility] - [facility] l [facility] ent [facility] Levofloxaci Levofloxaci Yes Gm not [facility] n n Singh defined [facility] - [facility] ent [facility] Xifaxan Xifaxan Yes Gm not [facility] [...] Future Scheduled 2019-12-11 INFLUENZA VACCINE [place] [facility] 00:00:00 [code = INFLUENZA VACCINE] Future Scheduled 2011 BREAST CANCER [facility] Test 00:00:00 SCREENING [code = BREAST CANCER SCREENING] Future Scheduled 2011 COLONOSCOPY SCREENING [place] [facility] 00:00:00 [code = COLONOSCOPY SCREENING] Future Scheduled 2011 SHINGLES VACCINES [place] [facility] 00:00:00 (#1) [code = SHINGLES VACCINES (#1)] Future Scheduled 1982 Screening for [facility] Test 00:00:00 malignant neoplasm of cervix (procedure) [code = 181545704] Encounters Start End Encounter Admission Attending Care Care Encounter Source Date/Time Date/Time Type Type Clinicians Facility Department ID 2019-09-28 2019-09-28 [facility] [id number] [address] 09:[facility]00 09[facility] 2019-09-18 2019-09-18 [facility] [id number] [facility] [address] 09:30[facility]00 09:30[facility]00 [facility] 2019-08-14 2019-08-14 Transition Jocelyne Alexandra [id number] 00:00:00 00:00:00 of Care Jovanny Sotelo [id number] [place] [id number] 2019-08-10 2019-08-11 [facility] [id number] 02:55:00 16:09:00 Encounter Wes Amin [id number] [place] [id number] [place] [id number] Results Test Description Test Time Test Comments Results Result Sourc e Comments RAD, CHEST, 1 2018-10-03 Reason for FINAL REPORT PATIENT VIEW, NON DEPT 07:50:00 exam:->SOBMarquita ID: [id number] CLINICAL d this be HISTORY: SOB performed at TECHNIQUE: 1 view of the the chest. COMPARISON: bedside?->Yes None IMPRESSION: There is pulmonary vascular congestion with prominent lung markings bilaterally. Subpulmonic pleural effusions cannot be excluded. The cardiomediastinal silhouette is magnified by technique. Signed: Franky Hoyt Verified Date/Time: 10/03/2018 07:50:47 Reading Location: [facility] Radiology Reading Room ESIUM 2018-10-03 07:37:00 Test Item Value Reference Range Interpretation Comme nts MAGNESIUM (BEAKER) (test code = 627) 1.6 mg/dL 1.6-2.6 BASIC METABOLIC [id number] 07:37:00 Test Item Value Reference Range Interpretation [...] DIALYSIS PATIEN TS. Specimen slightly ictericHEPATIC FUNCTION [id number] 07:37:00 Test Item Value Reference Range Interpretation [...] 35 U/L 6-55 347) Specimen slightly ictericPROTHROMBIN [id number] 06:25:00 Test Item Value Reference Range Interpretation [...] mechanical heart valves.CBC W/PLT COUNT & AUTO [id number] 06:16:00 Test Item Value Reference Range Interpretation [...] = 3438) Received comment: User comments: Slide comments:[id number] 05:58:00 Test Item Value Reference Range Interpretation Comments MAGNESIUM (BEAKER) (test code = 1.6 mg/dL 1.6-2.6 627) BASIC METABOLIC [id number] 05:58:00 Test Item Value Reference Range Interpretation [...] DIALYSIS PATIEN TS. Specimen slightly ictericHEPATIC FUNCTION [id number] 05:58:00 Test Item Value Reference Range Interpretation [...] 39 U/L 6-55 347) Specimen slightly ictericPROTHROMBIN [id number] 05:26:00 Test Item Value Reference Range Interpretation [...] mechanical heart valves.CBC W/PLT COUNT & AUTO [id number] 05:20:00 Test Item Value Reference Range Interpretation [...] WBC 0-0 (test code = 413) VITAMIN [id number] 06:57:00 Test Item Value Reference Range Interpretation Comments VITAMIN B12 (BEAKER) (test code = 178 pg/mL 213-816 L 774) [id number] 06:57:00 Test Item Value Reference Range Interpretation Comments FERRITIN (BEAKER) (test code = 361) 21 ng/mL 5-275 FOLATE, [id number] 06:57:00 Test Item Value Reference Range Interpretation [...] 28 % 20-55 (test code = 2590) [id number] 05:59:00 Test Item Value Reference Range Interpretation Comments MAGNESIUM (BEAKER) (test code = 1.7 mg/dL 1.6-2.6 627) BASIC METABOLIC [id number] 05:59:00 Test Item Value Reference Range Interpretation [...] FOR DIALYSIS PATIEN TS. Specimen slightly ictericLIPID [id number] 05:59:00 Test Item Value Reference Range Interpretation [...] Very High >=190 Specimen slightly ictericHEPATIC FUNCTION [id number] 05:59:00 Test Item Value Reference Range Interpretation [...] = 41 U/L 6-55 347) Specimen slightly [id number] 05:59:00 Test Item Value Reference Range Interpretation Comments LIPASE (BEAKER) (test code = 749) 35 U/L 8-78 Specimen slightly ictericPROTHROMBIN [id number] 05:58:00 Test Item Value Reference Range Interpretation [...] mechanical heart valves.CBC W/PLT COUNT & AUTO [id number] 05:37:00 Test Item Value Reference Range Interpretation [...] PERCENT (BEAKER) (test code = 2801) POCT-HEMOGLOBIN [id number] 06:12:00 Test Item Value Reference Range Interpretation Comments POC-HEMOGLOBIN METER 8.6 g/dL 12.0-15.0 L TESTED AT [facility] 6720 (BEAKER) (test code = [place] [address] 1539)
--- OUTSIDE RECORDS SUMMARY | 2019-11-28 18:30 | XMS REPORT ---
[...] End Status Dosage System Date Date Meloxicam [facility] 59278224260 7.5 MG Orally September 17October Active 1 t ablet Once a day 2019 Lactulose [facility] [address]-89 Active not defined Xifaxan [facility] [address]-61 Active not defined Oseltamivir [facility] [address]-73 Active not Phosphate defined Acetaminophen-C [facility] [address]-48 Active no t odeine #3 defined Levofloxacin [facility] [address]-45 Active not defined Albuterol [facility] 52871558438 Active not Sulfate HFA defined Azithromycin [facility] [address]-30 Active not defined Amoxicillin-Pot [facility] [address]-52 Active no t Clavulanate defined Pantoprazole [facility] [address]-45 Active not Sodium defined Results No Known Results Summary Purpose eClinicalWorks Submission
--- OUTSIDE RECORDS SUMMARY | 2019-11-28 18:30 | XMS REPORT ---
[...] End Status Dosage System Date Date Pantoprazole [facility] [address]-88 Active not Sodium defined Acetaminophen-C [facility] [address]-56 Active no t odeine #[address] [facility] [address]-08 Active not Phosphate defined Levofloxacin [facility] [address]-73 Active not defined Xifaxan [facility] [address]-34 Active not defined Lactulose [facility] [address]-80 Active not defined Albuterol [facility] [address]-67 Active not Sulfate HFA defined Azithromycin [facility] [address]-48 Active not defined Amoxicillin-Pot [facility] [address]-53 Active no t Clavulanate defined Meloxicam [facility] 55714658813 7.5 MG Orally September 17October Active 1 t ablet Once a day 2019 Results No Known Results Summary Purpose eClinicalWorks Submission
[2019-11-28 21:39] LABS: Absolute Lymphocytes (CBC) 0.7 K/uL (0.7-4.9); Basophils % 0.5 % (0-1.3); Hematocrit 37.2 % (36.0-45.0); Lymphocytes % 16.9 % (15.3-44.8); MPV 8.4 fL (7.6-11.3); RBC Red Blood Cell Count 3.88 M/uL (3.86-4.86)
[2019-11-28 21:57] LABS: Blood Morphology Comment NOT SEEN (NOT SEEN); Platelet Estimate DECR; Urine White Blood Cell Casts OK
[2019-11-28] MEDS ORDERED: ONDANSETRON 4 MG/2 ML VIAL ONE (22:07)
[2019-11-28] MEDS ORDERED: FENTANYL CITR 100 MCG/2 ML ONE (22:07)
[2019-11-28 23:03] LABS: ALT/SGPT 68 U/L (12-78); AST/SGOT 38 U/L (15-37); Alkaline Phosphatase 111 U/L (45-117); BUN Blood Urea Nitrogen 12 mg/dL (7-18); Bicarbonate 26 mmol/L (21-32); Bilirubin Direct 0.4 mg/dL (0-0.2); Bilirubin Total 1.4 mg/dL (0.2-1.0); Glucose Level 95 mg/dL (74-106); Lipase 255 U/L (73-393); Potassium 4.1 mmol/L (3.5-5.1); Protein, Total 6.4 g/dL (6.4-8.2); Sodium Level 142 mmol/L (136-145)
[2019-11-29] MEDS ORDERED: FENTANYL CITR 100 MCG/2 ML ONE (01:13)
--- NOTE | 2019-11-29 02:09 | ER ---
Nurse's Notes [facility] Name: Zenaida Goss Age: 59 yrs Sex: Female : 1960 Arrival Date: 11/28/2019 Time: 18:29 Bed 17 Private MD: Diagnosis: Upper abdominal pain, unspecified Presentation: 11/27 18:42 Chief complaint: Patient states: Upper abdominal pain/RUQ that radiates through to back ll1 for 2 days. + nausea. Had total hyst 6 days ago. No known fever. Coronavirus screen: Client denies travel out of the [place] in the last 14 days. At this time, the client does not indicate any symptoms associated with coronavirus-19. The client reports previous COVID testing was negative. Ebola Screen: Patient denies travel to an Ebola-affected area in the 21 days before illness onset. Initial Sepsis Screen: Does the patient meet any 2 criteria? No. Patient's initial sepsis screen is negative. Risk Assessment: Do you want to hurt yourself or someone else? Patient reports no desire to harm self or others. Onset of symptoms was November 27, 2019. 18:42 Method Of Arrival: Wheelchair ll1 18:42 Acuity: TANK 3 ll1 20:00 Initial Sepsis Screen: Does the patient have a suspected source of infection? No. mt2 Patient's initial sepsis screen is negative. Historical: - Allergies: 18:44 Morphine (Anaphylaxis); ll1 - PMHx: 18:44 Anemia; breast cancer; Cirrhosis; fatty liver; Pancreatitis; varices; ll1 - PSHx: 18:44 Cholecystectomy; R lumpectomy; Hysterectomy; ll1 - Immunization history:: Flu vaccine is up to date. - Social history:: Smoking status: Patient denies any tobacco usage or history of. Patient/guardian denies using alcohol, street drugs. Screenin:06 Abuse screen: Denies threats or abuse. Nutritional screening: No deficits noted. mt2 Tuberculosis screening: No symptoms or risk factors identified. Fall Risk None identified. Assessment: 19:30 Reassessment: Patient and/or family updated on plan of care and expected duration. Pain mt2 level reassessed. Patient is alert, oriented x 3, equal unlabored respirations, skin warm/dry/pink. ASSUMED CARE OF PT WITH ABD PAIN S/P HYSTERECTOMY X 6 DAYS. TECH IN ATTEMPTING IV. General: Appears uncomfortable, Behavior is cooperative. Pain: Complains of pain in abdomen Pain currently is 10 out of 10 on a pain scale. Quality of pain is described as sharp. Neuro: No deficits noted. Cardiovascular: No deficits noted. Respiratory: No deficits noted. GI: Abdomen is round Bowel sounds present X 4 quads. Abdomen is tender to palpation Reports lower abdominal pain, nausea. : No deficits noted. EENT: No deficits noted. Derm:. Derm: SURGICAL INCISION ABD. Musculoskeletal: No deficits noted. 20:30 Reassessment: Patient and/or family updated on plan of care and expected duration. Pain mt2 level reassessed. Patient is alert, oriented x 3, equal unlabored respirations, skin warm/dry/pink. UNSUCCESSFUL IV ATTEMPT. WILL NOTIFY PROVIDER. General: Appears uncomfortable, Behavior is cooperative. Pain: Complains of pain in abdomen Pain currently is 10 out of 10 on a pain scale. Quality of pain is described as aching. 21:30 Reassessment: Patient and/or family updated on plan of care and expected duration. Pain mt2 level reassessed. Patient is alert, oriented x 3, equal unlabored respirations, skin warm/dry/pink. General: Appears uncomfortable, Behavior is cooperative. Pain: Complains of pain in abdomen Pain currently is 8 out of 10 on a pain scale. Quality of pain is described as aching. 22:00 Reassessment: Patient and/or family updated on plan of care and expected duration. Pain mt2 level reassessed. Patient is alert, oriented x 3, equal unlabored respirations, skin warm/dry/pink. General: Appears comfortable, Behavior is cooperative. 23:00 Reassessment: Patient and/or family updated on plan of care and expected duration. Pain mt2 level reassessed. Patient is alert, oriented x 3, equal unlabored respirations, skin warm/dry/pink. UNSUCCESSFUL IV ATTEMPT FOR CT. PROVIDER NOTIFIED. COMBINATION PRESSER WILL TRY AGAIN. General: Appears uncomfortable, Behavior is cooperative. Pain: Complains of pain in abdomen Pain currently is 10 out of 10 on a pain scale. Quality of pain is described as sharp. 11/28 00:00 Reassessment: Patient and/or family updated on plan of care and expected duration. Pain mt2 level reassessed. Patient is alert, oriented x 3, equal unlabored respirations, skin warm/dry/pink. General: Appears uncomfortable, Behavior is cooperative. Pain: Complains of pain in abdomen Pain currently is 10 out of 10 on a pain scale. Quality of pain is described as sharp. 01:00 Reassessment: Patient and/or family updated on plan of care and expected duration. Pain mt2 level reassessed. Patient is alert, oriented x 3, equal unlabored respirations, skin warm/dry/pink. General: Appears comfortable, Behavior is cooperative. 02:00 Reassessment: Patient and/or family updated on plan of care and expected duration. Pain mt2 level reassessed. Patient is alert, oriented x 3, equal unlabored respirations, skin warm/dry/pink. Patient denies pain at this time. General: Appears comfortable, Behavior is cooperative. Vital Signs: 11/27 18:42 BP 135 / 78; Pulse 86; Resp 18; Temp 98.5; Pulse Ox 97% ; Weight 118.39 kg; Height 5 ll1 ft. 4 in. (162.56 cm); Pain 9/10; 19:30 BP 122 / 91; Pulse 88; Resp 16; Pulse Ox 97% ; Pain 10/10; mt2 20:00 BP 119 / 91; Pulse 91; Resp 19; Pulse Ox 99% ; Pain 10/10; mt2 21:00 BP 132 / 94; Pulse 91; Resp 17; Pulse Ox 99% ; Pain 10/10; mt2 22:00 BP 114 / 72; Pulse 81; Resp 19; Pulse Ox 100% ; Pain 8/10; mt2 23:00 BP 119 / 97; Pulse 74; Resp 16; Pulse Ox 97% ; Pain 8/10; mt2 11/28 00:00 BP 109 / 55; Pulse 74; Resp 17; Pulse Ox 97% ; Pain 10/10; mt2 01:00 BP 111 / 59; Pulse 73; Resp 18; Pulse Ox 99% ; Pain 10/10; mt2 11/27 18:42 Body Mass Index 44.80 (118.39 kg, 162.56 cm) ll1 ED Course: 11/27 18:29 Patient arrived in ED. ds1 18:44 Triage completed. ll1 18:44 Arm band placed on. ll1 20:00 Bed in low position. Call light in reach. Side rails up X 1. mt2 20:40 [facility] jr8 20:40 Aayush Alfaro MD is Attending Physician. jr8 21:05 Dianna Arnold, ERIC is Primary Nurse. mt2 21:15 Missed attempt(s): 24 gauge in left antecubital area. Bleeding controlled, band aid ds4 applied, catheter tip intact. 11/28 00:30 Inserted saline lock: 22 gauge in left forearm, using aseptic technique. IV rr5 discontinued, intact, bleeding controlled, No redness/swelling at site. Pressure dressing applied, right IV line removed. 01:14 CT Abd/Pelvis - IV Contrast Only In Process Unspecified. EDMS 02:15 No provider procedures requiring assistance completed. IV discontinued, intact, mt2 bleeding controlled, No redness/swelling at site. Pressure dressing applied. Administered Medications: 11/27 22:35 Drug: fentaNYL (PF) 50 mcg Route: IVP; Site: right hand; mt2 23:00 Follow up: Response: No adverse reaction; Pain is decreased mt2 22:35 Drug: Zofran (Ondansetron) 4 mg Route: IVP; Site: right hand; mt2 23:00 Follow up: Response: No adverse reaction; Pain is decreased mt2 23:54 Drug: fentaNYL (PF) 50 mcg Route: IVP; Site: right hand; mt2 11/28 00:25 Follow up: Response: No adverse reaction; Pain is decreased mt2 01:14 Drug: fentaNYL (PF) 50 mcg Route: IVP; Site: left wrist; mt2 01:30 Follow up: Response: No adverse reaction; Pain is decreased mt2 Outcome: 02:08 Discharge ordered by . jr8 02:16 Discharged to home ambulatory. mt2 02:16 Condition: good 02:16 Discharge instructions given to patient, Instructed on discharge instructions, follow up and referral plans. medication usage, Demonstrated understanding of instructions, follow-up care, medications, Prescriptions given X 1. 02:23 Patient left the ED. mt2 Signatures: Dispatcher [employer] EDOH Katarina Ritchie ds1 Scott Eastman PA PA jr8 Modesto Lopez ds4 Shyam Kirk RN RN rr5 Lashae Long RN RN ll1 Dianna Arnold, RN RN mt2
--- NOTE | 2019-11-29 02:09 | EDPHYS ---
Physician Documentation [facility] Name: Zenaida Goss Age: 59 yrs Sex: Female : 1960 Arrival Date: 11/28/2019 Time: 18:29 Bed 17 Private MD: ED Physician Aayush Alfaro HPI: 11/27 21:31 This 59 yrs old Female presents to ER via Wheelchair with complaints of Upper jr8 Abd Pain. 21:31 The patient presents with abdominal pain in the upper abdomen. Onset: The jr8 symptoms/episode began/occurred acutely, today. The symptoms radiate to back. Associated signs and symptoms: none. The symptoms are described as stabbing. Modifying factors: The symptoms are alleviated by nothing, the symptoms are aggravated by nothing. Severity of pain: At its worst the pain was moderate in the emergency department the pain is unchanged. The patient has not experienced similar symptoms in the past. The patient has been recently seen by a physician:. Patient stated that she had complete hysterectomy last week. Has been recovering well since then. Today started to have intense upper abdominal pain which she normally does not have . Historical: - Allergies: 18:44 Morphine (Anaphylaxis); ll1 - PMHx: 18:44 Anemia; breast cancer; Cirrhosis; fatty liver; Pancreatitis; varices; ll1 - PSHx: 18:44 Cholecystectomy; R lumpectomy; Hysterectomy; ll1 - Immunization history:: Flu vaccine is up to date. - Social history:: Smoking status: Patient denies any tobacco usage or history of. Patient/guardian denies using alcohol, street drugs. ROS: 21:31 Eyes: Negative for injury, pain, redness, and discharge, ENT: Negative for injury, jr8 pain, and discharge, Neck: Negative for injury, pain, and swelling, Cardiovascular: Negative for chest pain, palpitations, and edema, Respiratory: Negative for shortness of breath, cough, wheezing, and pleuritic chest pain, Back: Negative for injury and pain, MS/Extremity: Negative for injury and deformity, Skin: Negative for injury, rash, and discoloration, Neuro: Negative for headache, weakness, numbness, tingling, and seizure. 21:31 Abdomen/GI: Positive for abdominal pain, Negative for nausea, vomiting, and diarrhea, abdominal cramps, abdominal distension, anorexia, dysphagia, hematemesis, black/tarry stool, rectal pain, rectal bleeding, bowel incontinence, flatulence. Exam: 21:31 Eyes: Pupils equal round and reactive to light, extra-ocular motions intact. Lids and jr8 lashes normal. Conjunctiva and sclera icteric. Cornea within normal limits. Periorbital areas with no swelling, redness, or edema. ENT: Nares patent. No nasal discharge, no septal abnormalities noted. Tympanic membranes are normal and external auditory canals are clear. Oropharynx with no redness, swelling, or masses, exudates, or evidence of obstruction, uvula midline. Mucous membranes moist. Neck: Trachea midline, no thyromegaly or masses palpated, and no cervical lymphadenopathy. Supple, full range of motion without nuchal rigidity, or vertebral point tenderness. No Meningismus. Cardiovascular: Regular rate and rhythm with a normal S1 and S2. No gallops, murmurs, or rubs. Normal PMI, no JVD. No pulse deficits. Respiratory: Lungs have equal breath sounds bilaterally, clear to auscultation and percussion. No rales, rhonchi or wheezes noted. No increased work of breathing, no retractions or nasal flaring. Back: No spinal tenderness. No costovertebral tenderness. Full range of motion. Skin: Warm, dry with normal turgor. Mild Juandice noted with no rashes, no lesions, and no evidence of cellulitis. MS/ Extremity: Pulses equal, no cyanosis. Neurovascular intact. Full, normal range of motion. Neuro: Awake and alert, GCS 15, oriented to person, place, time, and situation. Cranial nerves II-XII grossly intact. Motor strength 5/5 in all extremities. Sensory grossly intact. Cerebellar exam normal. Normal gait. 21:31 Abdomen/GI: Inspection: bruising, right lower quadrant and left lower quadrant, obese Bowel sounds: active, all quadrants, Palpation: soft, in all quadrants, mild abdominal tenderness, in the epigastric area, right upper quadrant and left upper quadrant, mass, is not appreciated, rebound tenderness, is not appreciated, voluntary guarding, is not appreciated, involuntary guarding, is not appreciated, no appreciated organomegaly, Indicators: McBurney's point is not tender, Manriquez's sign is negative, Rovsing's sign is negative, Liver: tenderness, that is mild. Vital Signs: 18:42 BP 135 / 78; Pulse 86; Resp 18; Temp 98.5; Pulse Ox 97% ; Weight 118.39 kg; Height 5 ll1 ft. 4 in. (162.56 cm); Pain 9/10; 19:30 BP 122 / 91; Pulse 88; Resp 16; Pulse Ox 97% ; Pain 10/10; mt2 20:00 BP 119 / 91; Pulse 91; Resp 19; Pulse Ox 99% ; Pain 10/10; mt2 21:00 BP 132 / 94; Pulse 91; Resp 17; Pulse Ox 99% ; Pain 10/10; mt2 22:00 BP 114 / 72; Pulse 81; Resp 19; Pulse Ox 100% ; Pain 8/10; mt2 23:00 BP 119 / 97; Pulse 74; Resp 16; Pulse Ox 97% ; Pain 8/10; mt2 11/28 00:00 BP 109 / 55; Pulse 74; Resp 17; Pulse Ox 97% ; Pain 10/10; mt2 01:00 BP 111 / 59; Pulse 73; Resp 18; Pulse Ox 99% ; Pain 10/10; mt2 11/27 18:42 Body Mass Index 44.80 (118.39 kg, 162.56 cm) ll1 MDM: 11/27 20:59 Patient medically screened. jr8 11/28 02:07 Data reviewed: vital signs, nurses notes, lab test result(s), radiologic studies, CT jr8 scan. Data interpreted: Pulse oximetry: on room air is 99 %. Interpretation: normal. Counseling: I had a detailed discussion with the patient and/or guardian regarding: the historical points, exam findings, and any diagnostic results supporting the discharge/admit diagnosis, lab results, radiology results, the need for outpatient follow up, a family practitioner, an OB/Gyne specialist, to return to the emergency department if symptoms worsen or persist or if there are any questions or concerns that arise at home. Response to treatment: the patient's symptoms have markedly improved after treatment. Special discussion: Based on the patient's Hx, exam, and Dx evaluation, there is no indication for emergent surgery or inpatient Tx. It is understood by the patient/guardian that if the Sx's persist or worsen they need to return immediately for re-evaluation. 11/27 20:41 Order name: Basic Metabolic Panel; Complete Time: 23:09 [facility] 11/27 20:41 Order name: CBC with Diff; Complete Time: 21:58 [facility] 11/27 20:41 Order name: Hepatic Function; Complete Time: 23:09 [facility] 11/27 20:41 Order name: Lipase; Complete Time: 23:09 [facility] 11/27 21:57 Order name: CBC Smear Scan; Complete Time: 21:58 [facility] 11/27 23:10 Order name: CT Abd/Pelvis - IV Contrast Only jr8 Administered Medications: 11/27 22:35 Drug: fentaNYL (PF) 50 mcg Route: IVP; Site: right hand; mt2 23:00 Follow up: Response: No adverse reaction; Pain is decreased mt2 22:35 Drug: Zofran (Ondansetron) 4 mg Route: IVP; Site: right hand; mt2 23:00 Follow up: Response: No adverse reaction; Pain is decreased mt2 23:54 Drug: fentaNYL (PF) 50 mcg Route: IVP; Site: right hand; mt2 11/28 00:25 Follow up: Response: No adverse reaction; Pain is decreased mt2 01:14 Drug: fentaNYL (PF) 50 mcg Route: IVP; Site: left wrist; mt2 01:30 Follow up: Response: No adverse reaction; Pain is decreased mt2 Disposition: 06:13 Co-signature as Attending Physician, Aayush Alfaro MD. 7 Disposition: 11/29/19 02:08 Discharged to Home. Impression: Upper abdominal pain, unspecified. - Condition is Stable. - Discharge Instructions: Abdominal Pain, Adult. - Prescriptions for Tramadol 50 mg Oral Tablet - take 1 tablet by ORAL route every 8 hours as needed; 20 tablet. - Medication Reconciliation Form, Thank You Letter, Antibiotic Education, Prescription Opioid Use form. - Follow up: Private Physician; When: 2 - 3 days; Reason: Recheck today's complaints, Continuance of care, Re-evaluation by your physician. - Problem is new. - Symptoms have improved. Signatures: Dispatcher [employer] EDMS Scott Eastman PA PA jr8 Lashae Long RN RN 1 Aayush Alfaro MD MD 7 Dianna Arnold RN RN mt2 Corrections: (The following items were deleted from the chart) 02:23 02:08 11/29/2019 02:08 Discharged to Home. Impression: Upper abdominal pain, mt2 unspecified. Condition is Stable. Forms are Medication Reconciliation Form, Thank You Letter, Antibiotic Education, Prescription Opioid Use. Follow up: Private Physician; When: 2 - 3 days; Reason: Recheck today's complaints, Continuance of care, Re-evaluation by your physician. Problem is new. Symptoms have improved. jr8
[2019-11-29 04:17] VITALS: TEMP 98.5
[2019-11-29 04:26] VITALS: BP 111/59; O2SAT 99
--- NOTE | 2019-11-30 10:04 | RAD REPORT ---
EXAM DESCRIPTION: CT abdomen and pelvis with IV contrast CLINICAL HISTORY: 59-year-old female with right upper quadrant abdominal pain that radiates through to the back for two days, history of cirrhosis, fatty liver, pancreatitis, varices, cholecystectomy, right lumpectomy for breast cancer and hysterectomy six days ago. TECHNIQUE: Axial CT imaging of the abdomen and pelvis was performed following the administration of intravenous contrast.. Oral contrast was not administered. Sagittal and coronal reconstructed image s were then performed. The CT study is performed according to ALARA (as low as reasonably achievabl e) or ALARA/IMAGE GENTLY, with automatic adjustment of mA and/or kV according to patient size. Performed on: 11/29/2019 at 12:51 AM. Comparison: 05/29/2018 FINDINGS: Lung bases: The lung bases are clear. Liver: The liver is normal in size and is nodular in contour compatible with a reported history of ci rrhosis. The dome of the liver is incompletely imaged on this study. The visualized portions of the l iver are otherwise unremarkable. No focal hepatic abnormalities are identified. Liver attenuation is within normal limits. Spleen: The spleen is enlarged and measures 18.5 cm in craniocaudal dimension. There are splenic vari robel in the hilar region. Gallbladder and bile duct: The gallbladder is surgically absent. There is no biliary ductal dilatat ion. Pancreas: The pancreas is grossly normal in size and configuration. Adrenal Glands: The adrenal glands are normal in size and configuration. Kidneys: The kidneys are normal in size and configuration. There is no evidence of hydronephrosis. Th ere is a punctate nonobstructing calcification in the lower pole of the right kidney. No definite travis id or cystic renal mass lesions are identified. Stomach: The stomach is grossly normal. There is no definite hiatal hernia. Bowel: The bowel gas pattern is non specific and non obstructive. There is persistent infiltration of the mesenteric fat in the right lower quadrant similar when compared to the prior study. This may be due to scarring. Acute inflammatory changes are not excluded. Appendix: The appendix is not visualized on this examination. Free air: There is no evidence of free air. Free fluid: There is no evidence of free fluid. Vasculature: The aorta is normal in caliber and contour. The inferior vena cava is grossly unremarkab le. Lymphadenopathy: No pathologic lymphadenopathy is identified. Bladder: The bladder is incompletely distended on this examination. Reproductive: The uterus is surgically absent. There is infiltration of the subcutaneous fat along th e lower anterior abdominal wall and there is a small amount of free air in the subcutaneous soft tiss ues likely secondary to recent postsurgical changes. Bones: No acute osseous abnormalities are identified. Soft tissues: As described above, there is infiltration of the subcutaneous fat along the lower anter ior abdominal wall with a small amount of free air in the subcutaneous soft tissues likely due to the patient's recent hysterectomy. There is atrophy of the right rectus abdominis muscle. IMPRESSION: 1. Status post recent hysterectomy with infiltration of the subcutaneous fat along the l ower anterior abdominal wall with a small amount of subcutaneous emphysema likely due to recent posts urgical changes. 2. Persistent infiltration of the mesenteric fat in the right lower quadrant, similar when compared t o the prior study possibly due to scarring. Acute inflammatory changes are not entirely excluded. 3. CT findings compatible with cirrhosis and portal hypertension. 4. No CT evidence to suggest acute pancreatitis at this time 5. Remote cholecystectomy. 6. Punctate nonobstructing right renal calculus. Electronically signed by: Abril Bhandari DO 11/29/2019 1:52 AM CDT Due to temporary technical issues with the PACS/Fluency reporting system, reports are being signed by the in house radiologist without review as a courtesy to ensure prompt reporting. The interpreting r adiologist is fully responsible for the content of the report.
== END 2019-11-29 02:23 | disposition home or self-care (01) ==
LOC: ER 18:27
DX: R10.10 Upper abdominal pain, unspecified (principal); Z90.710 Acquired absence of both cervix and uterus; Z85.3 Personal history of malignant neoplasm of breast; Z88.5 Allergy status to narcotic agent
CPT/HCPCS: 85025; 80048; 36415; 80076; 83690; 74177; 99284; Q9967; J3010 ×2; J2405

== ENCOUNTER 2020-03-19 05:02 | Emergency (ER) | payer OTHER ==
[2011-10-02 05:12] VITALS: BP 114/75
--- OUTSIDE RECORDS SUMMARY | 2020-03-19 05:05 | XMS REPORT | Clinical Summary ---
:1960 Author Organization [facility] Address [address] [place] [address] Care Team Providers Name Role Phone MD Ruth Primary Care Provider Allergies Active Allergy Reactions Severity Noted Date Comments Morphine Other (See Comments) Medium 03/14/2020 Tightne ss of throat Medications Medication Sig Dispensed Refills Start Date End Date Status lactulose 10 Take 20 g by 0 Acti ve gram/15 mL (15 mouth daily. mL) solution HYDROcodone-acet Take 1 tablet 10 tablet 0 03/18/2020 03/25/20 2 Active aminophen by mouth every 0 (NORCO) 5-325 mg 6 (six) hours per as needed for tabletIndication moderate pain s: acute pain for up to 7 days .acute pain. Max Daily Amount: 4 tablets ibuprofen Take 400 mg by 0 Disco ntinued (ADVIL) 200 MG mouth once. 0 (St op Taking at tablet Discharge) Active Problems Problem Noted Date Disorder of liver 03/14/2020 Acute pancreatitis without infection or necrosis 03/14 Encounters Date Type Specialty Care Team Description 03/14/2020 - Hospital Encounter Transplant Nakia Cruz M D 03/18/2020 Jeremy Bullock MD 03/14/2020 Travel after 03/19/2019 Surgical History Surgery Date Site/Laterality Comments HYSTERECTOMY LUMPECTOMY, BREAST Right APPENDECTOMY CHOLECYSTECTOMY TUBAL LIGATION TONSILLECTOMY Medical History Medical History Date Comments Cirrhosis (HCC) Cancer (HCC) Breast CA Social History Tobacco Use Types Packs/Day Years Used Date Never Assessed Sex Assigned at Date Recorded Not on file Job Start Date Occupation Industry Not on file Not on file Not on file COVID-19 Exposure Response Date Recorded In the last month, have you been in contact with No / Unsure 03/14/2020 2:51 PM FOCUSED FACTORY MANAGER someone who was confirmed or suspected to have Coronavirus / COVID-19? Last Filed Vital Signs Vital Sign Reading Time Taken Comments Blood Pressure 125/81 03/18/2020 7:34 AM FOCUSED FACTORY MANAGER Pulse 61 03/18/2020 7:34 AM FOCUSED FACTORY MANAGER Temperature 36.6 C (97.9 F) 03/18/2020 7:34 AM FOCUSED FACTORY MANAGER Respiratory Rate 19 03/18/2020 7:34 AM FOCUSED FACTORY MANAGER Oxygen Saturation 95% 03/18/2020 7:34 AM FOCUSED FACTORY MANAGER Inhaled Oxygen Concentration - - Weight 120 kg (263 lb 11.2 oz) 03/18/2020 5:00 AM FOCUSED FACTORY MANAGER Height 162.6 cm (5' 4") 03/14/2020 4:30 PM FOCUSED FACTORY MANAGER Body Mass Index 45.26 03/14/2020 4:30 PM FOCUSED FACTORY MANAGER Plan of Treatment Health Maintenance Due Date Last Done Comments CERVICAL CANCER SCREENING 1982 BREAST CANCER SCREENING 2011 COLONOSCOPY SCREENING 2011 SHINGLES VACCINES (#1) 2011 INFLUENZA VACCINE 11/10/2019 01/21/2017 Procedures Procedure Name Priority Date/Time Associated Comments Diagnosis SMEAR REVIEW Routine 03/18/2020 4:18 Results for this AM FOCUSED FACTORY MANAGER procedure are i n the results section. ESTIMATED GFR Routine 03/18/2020 4:18 Results fo r this AM FOCUSED FACTORY MANAGER procedure are i n the results section. ALPHA FETOPROTEIN Routine 03/18/2020 4:18 Result s for this AM FOCUSED FACTORY MANAGER procedure are i n the results section. AMYLASE LEVEL Routine 03/18/2020 4:18 Results fo r this AM FOCUSED FACTORY MANAGER procedure are i n the results section. LIPASE LEVEL Routine 03/18/2020 4:18 Results for this AM FOCUSED FACTORY MANAGER procedure are i n the results section. PROTHROMBIN TIME WITH Routine 03/18/2020 4:18 Re sults for this INR AM FOCUSED FACTORY MANAGER procedure are i n the results section. PHOSPHORUS LEVEL Routine 03/18/2020 4:18 Results for this AM FOCUSED FACTORY MANAGER procedure are i n the results section. HEPATIC FUNCTION PANEL Routine 03/18/2020 4:18 R esults for this AM FOCUSED FACTORY MANAGER procedure are i n the results section. MAGNESIUM LEVEL Routine 03/18/2020 4:18 Results for this AM FOCUSED FACTORY MANAGER procedure are i n the results section. HC COMPLETE BLD COUNT Routine 03/18/2020 4:18 Re sults for this W/AUTO DIFF AM FOCUSED FACTORY MANAGER procedure are i n the results section. BASIC METABOLIC PANEL Routine 03/18/2020 4:18 Re sults for this AM FOCUSED FACTORY MANAGER procedure are i n the results section. SMEAR REVIEW Routine 03/17/2020 4:15 Results for this AM FOCUSED FACTORY MANAGER procedure are i n the results section. ESTIMATED GFR Routine 03/17/2020 4:15 Results fo r this AM FOCUSED FACTORY MANAGER procedure are i n the results section. LDH Routine 03/17/2020 4:15 Results for this AM FOCUSED FACTORY MANAGER procedure are i n the results section. URIC ACID LEVEL Routine 03/17/2020 4:15 Results for this AM FOCUSED FACTORY MANAGER procedure are i n the results section. PROTHROMBIN TIME WITH Routine 03/17/2020 4:15 Re sults for this INR AM FOCUSED FACTORY MANAGER procedure are i n the results section. PHOSPHORUS LEVEL Routine 03/17/2020 4:15 Results for this AM FOCUSED FACTORY MANAGER procedure are i n the results section. MAGNESIUM LEVEL Routine 03/17/2020 4:15 Results for this AM FOCUSED FACTORY MANAGER procedure are i n the results section. COMPREHENSIVE Routine 03/17/2020 4:15 Results fo r this METABOLIC PANEL AM FOCUSED FACTORY MANAGER procedure ar e in the results section. CBC WITH PLATELET AND Routine 03/17/2020 4:15 Re sults for this DIFFERENTIAL AM FOCUSED FACTORY MANAGER procedure are i n the results section. SMEAR REVIEW Routine 03/16/2020 4:32 Results for this AM FOCUSED FACTORY MANAGER procedure are i n the results section. ESTIMATED GFR Routine 03/16/2020 4:32 Results fo r this AM FOCUSED FACTORY MANAGER procedure are i n the results section. LDH Routine 03/16/2020 4:32 Results for this AM FOCUSED FACTORY MANAGER procedure are i n the results section. URIC ACID LEVEL Routine 03/16/2020 4:32 Results for this AM FOCUSED FACTORY MANAGER procedure are i n the results section. PROTHROMBIN TIME WITH Routine 03/16/2020 4:32 Re sults for this INR AM FOCUSED FACTORY MANAGER procedure are i n the results section. PHOSPHORUS LEVEL Routine 03/16/2020 4:32 Results for this AM FOCUSED FACTORY MANAGER procedure are i n the results section. MAGNESIUM LEVEL Routine 03/16/2020 4:32 Results for this AM FOCUSED FACTORY MANAGER procedure are i n the results section. COMPREHENSIVE Routine 03/16/2020 4:32 Results fo r this METABOLIC PANEL AM FOCUSED FACTORY MANAGER procedure ar e in the results section. CBC WITH PLATELET AND Routine 03/16/2020 4:32 Re sults for this DIFFERENTIAL AM FOCUSED FACTORY MANAGER procedure are i n the results section. SMEAR REVIEW Routine 03/15/2020 4:45 Results for this AM FOCUSED FACTORY MANAGER procedure are i n the results section. HEMOGLOBIN A1C Routine 03/15/2020 4:45 Results f or this AM FOCUSED FACTORY MANAGER procedure are i n the results section. PROTHROMBIN TIME WITH Routine 03/15/2020 4:45 Re sults for this INR AM FOCUSED FACTORY MANAGER procedure are i n the results section. CBC WITH PLATELET AND Routine 03/15/2020 4:45 Re sults for this DIFFERENTIAL AM FOCUSED FACTORY MANAGER procedure are i n the results section. BILIRUBIN DIRECT Routine 03/15/2020 4:00 Results for this AM FOCUSED FACTORY MANAGER procedure are i n the results section. ESTIMATED GFR Routine 03/15/2020 4:00 Results fo r this AM FOCUSED FACTORY MANAGER procedure are i n the results section. LDH Routine 03/15/2020 4:00 Results for this AM FOCUSED FACTORY MANAGER procedure are i n the results section. URIC ACID LEVEL Routine 03/15/2020 4:00 Results for this AM FOCUSED FACTORY MANAGER procedure are i n the results section. T4 Routine 03/15/2020 4:00 Results for this AM FOCUSED FACTORY MANAGER procedure are i n the results section. THYROID STIMULATING Routine 03/15/2020 4:00 Resu lts for this HORMONE AM FOCUSED FACTORY MANAGER procedure are i n the results section. PHOSPHORUS LEVEL Routine 03/15/2020 4:00 Results for this AM FOCUSED FACTORY MANAGER procedure are i n the results section. MAGNESIUM LEVEL Routine 03/15/2020 4:00 Results for this AM FOCUSED FACTORY MANAGER procedure are i n the results section. COMPREHENSIVE Routine 03/15/2020 4:00 Results fo r this METABOLIC PANEL AM FOCUSED FACTORY MANAGER procedure ar e in the results section. CT ABDOMEN WWO Routine 03/14/2020 9:04 Results f or this CONTRAST PELVIS W PM FOCUSED FACTORY MANAGER procedure are in CONTRAST the results section. SMEAR REVIEW Routine 03/14/2020 5:20 Results for this PM FOCUSED FACTORY MANAGER procedure are i n the results section. ESTIMATED GFR Routine 03/14/2020 5:20 Results fo r this PM FOCUSED FACTORY MANAGER procedure are i n the results section. LACTIC ACID LEVEL Routine 03/14/2020 5:20 Result s for this PM FOCUSED FACTORY MANAGER procedure are i n the results section. PROTHROMBIN TIME WITH Routine 03/14/2020 5:20 Re sults for this INR PM FOCUSED FACTORY MANAGER procedure are i n the results section. PHOSPHORUS LEVEL Routine 03/14/2020 5:20 Results for this PM FOCUSED FACTORY MANAGER procedure are i n the results section. MAGNESIUM LEVEL Routine 03/14/2020 5:20 Results for this PM FOCUSED FACTORY MANAGER procedure are i n the results section. LIPASE LEVEL Routine 03/14/2020 5:20 Results for this PM FOCUSED FACTORY MANAGER procedure are i n the results section. HC COMPLETE BLD COUNT Routine 03/14/2020 5:20 Re sults for this W/AUTO DIFF PM FOCUSED FACTORY MANAGER procedure are i n the results section. COMPREHENSIVE Routine 03/14/2020 5:20 Results fo r this METABOLIC PANEL PM FOCUSED FACTORY MANAGER procedure ar e in the results section. COVID-19 QUALITATIVE Routine 03/14/2020 4:30 Res ults for this PCR PM FOCUSED FACTORY MANAGER procedure are i n the results section. after 03/19/2019 Results Smear review (03/18/2020 4:18 AM FOCUSED FACTORY MANAGER)Only the most recent of5 resultswithin the time period is included. Pathologist [facility] Platelet slide review Mkd decreased (A) [facility] Anisocytosis Moderate [facility] Polychromasia Moderate [facility] Ovalocytes [facility] Specimen Plasma Performing Organization Address [facility] Phon e Number [facility] DEPARTMENT OF PATHOLOGY AND [address] [place] [address] [phone] [address] Estimated GFR (03/18/2020 4:18 AM FOCUSED FACTORY MANAGER)Only the most recent of5 resultswithin the time period is included. [facility] Estimated GFR >=90 mL/min/1.73 [facility] Comment: m2 HOSPITAL Catergory Units Interpretation G1 >=90 Normal or high G2 60-89 Mildly decreased G3a 45-59 Mildly to moderately decreas ed G3b 30-44 Moderately to severely decre ased G4 15-29 Severely decreased G5 <15 Kidney failure The eGFR was calculated using the Chronic Kidney Disea se Epidemiology Collaboration (CKD-EPI) equation. Interpretation is based on recommendations of the National Kidney Foundation-Kidney Disease Outcomes Sonny lity Initiative (NKF-KDOQI) published in 2014. Specimen Plasma Performing Organization Address City/[facility] Phon e Number [facility] DEPARTMENT OF PATHOLOGY AND [address] [place], [place] [phone] [address] [address] Alpha fetoprotein (03/18/2020 4:18 AM FOCUSED FACTORY MANAGER) Pathologist [facility] Alpha fetoprotein 5.3 0.0 - 8.3 TH[facility]AL Comment: ng/mL [facility] The Luz 8000 AFP immunoassay was used. HOSPITAL Results obtained with different assay methods or kits should not be used interchangeably and may be differen t. Specimen Serum Performing Organization Address City/[facility]/ZIP [facility] Phon e Number [facility] DEPARTMENT OF PATHOLOGY AND [address] [place] [address] [phone] [address] Prothrombin time with INR (03/18/2020 4:18 AM FOCUSED FACTORY MANAGER)Only the most recent of5 resultswithin the time period is included. Pathologist [facility] Prothrombin time 16.3 (H) 11.5 - 14.5 [facility] INR 1.3 THERMAL Comment: [facility] International Normalized Ratio (INR) is a the[facility] HOSPITAL monitoring tool for patients who are stable on oral anticoagulant therapy. An INR of 2.0-3.0 is suggested for deep vein thrombosis/pulmonary embolism. Specimen Blood Performing Organization Address City/[facility] Phon e Number [facility] DEPARTMENT OF PATHOLOGY AND [address] [place] [address] [phone] [address] CBC with platelet and differential (03/18/2020 4:18 AM FOCUSED FACTORY MANAGER)Only the most recent of5 resultswithin the time period is included. [facility] WBC 1.83 (L) 4.50 - 11.00 [facility] k/uL [facility] RBC 3.23 (L) 4.20 - 5.50 [facility] m/uL [facility] HGB 9.8 (L) 12.0 - 16.0 [facility] g/dL [facility] HCT 30.7 (L) 37.0 - 47.0 % [facility] MCV 95.0 82.0 - 100.0 [facility] MCH 30.3 27.0 - 34.0 pg [facility] MCHC 31.9 31.0 - 37.0 [facility] RDW - SD 51.5 37.0 - 55.0 fL [facility] MPV 11.2 8.8 - 13.2 fL [facility] Platelet count 46 (L) 150 - 400 k/uL [facility] Nucleated RBC 0.00 /100 WBC [facility] Neutrophils 59.1 39.0 - 69.0 % [facility] Lymphocytes 25.7 25.0 - 45.0 % [facility] Monocytes 10.9 (H) 0.0 - 10.0 % [facility] Eosinophils 3.3 0.0 - 5.0 % [facility] Basophils 0.5 0.0 - 1.0 % [facility] Immature granulocytes 0.5Comment: 0.0 - 1.0 % [facility] "Immature HOSPITAL granulocytes" (promyelocytes , myelocytes, metamyelocytes ) Specimen Plasma Performing Organization Address [facility] Phon e Number [facility] DEPARTMENT OF PATHOLOGY AND [address] [place] [address] [address] Phosphorus level (03/18/2020 4:18 AM FOCUSED FACTORY MANAGER)Only the most recent of5 resultswithin the time period is included. Pathologist Sig nature Phosphorus 2.8 2.4 - 4.5 mg/dL [facility] Specimen Plasma Performing Organization Address [facility] Phon e Number [facility] DEPARTMENT OF PATHOLOGY AND [address] [place] [address] [address] Magnesium level (03/18/2020 4:18 AM FOCUSED FACTORY MANAGER)Only the most recent of5 resultswithin the time period is included. Pathologist Sig nature Magnesium 1.9 1.6 - 2.6 mg/dL [facility] Specimen Plasma Performing Organization Address [facility] Phon e Number [facility] DEPARTMENT OF PATHOLOGY AND [address] [place] [address] [phone] [address] Lipase level (03/18/2020 4:18 AM FOCUSED FACTORY MANAGER)Only the most recent of2 resultswithin the time period is included. Pathologist Sig nature Lipase 68 (H) 13 - 60 U/L [facility] Specimen Plasma Performing Organization Address [facility] Phon e Number [facility] DEPARTMENT OF PATHOLOGY AND [address] [place] [address] [phone] [address] Amylase level (03/18/2020 4:18 AM FOCUSED FACTORY MANAGER) Pathologist Sig nature Amylase 51 28 - 100 U/L [facility] Specimen Plasma Performing Organization Address City/[facility] Phon e Number [facility] DEPARTMENT OF PATHOLOGY AND [address] [place] [address] [phone] [address] Hepatic function panel (03/18/2020 4:18 AM FOCUSED FACTORY MANAGER) Albumin 2.6 (L) 3.5 - 5.0 [facility] g/dL HOSPITAL Total bilirubin 0.8 0.0 - 1.2 [facility] mg/dL HOSPITAL Bilirubin direct 0.3 0.0 - 0.3 [facility] mg/dL HOSPITAL Alkaline phosphatase 117 (H) 35 - 104 U/L [facility] Protein 6.1 (L) 6.3 - 8.3 [facility] Comment: g/dL [facility] - [place] 4.6-7.0 g/dL 1 week 4.4-7.6 g/dL 7 months-1year 5.1-7.3 g/dL 1-2 years 5.6-7.5 g/dL >3 years 6.0-8.0 g/dL 18-150 6.3-8.3 g/dL ALT 36 5 - 50 U/L [facility] AST 33 10 - 35 U/L [facility] Specimen Plasma Performing Organization Address City/[facility] Phon e Number [facility] DEPARTMENT OF PATHOLOGY AND [address] [place] [address] [address] Basic metabolic panel (03/18/2020 4:18 AM FOCUSED FACTORY MANAGER) Pathologist Sig nature Sodium 144 135 - 148 mEq/L [facility] L Potassium 4.3 3.5 - 5.0 mEq/L [facility] L Chloride 106 98 - 112 mEq/L [facility] CO2 30 24 - 31 mEq/L [facility] Anion gap 8@ANIO 7 - 15 mEq/L [facility] BUN 10 6 - 20 mg/dL [facility] Creatinine 0.64 0.50 - 0.90 mg/dL [facility] Glucose 103 (H) 65 - 99 mg/dL [facility] Calcium 8.3 8.3 - 10.2 mg/dL [facility] Specimen Plasma Performing Organization Address City/[facility]/ZIP Code Phon e Number [facility] DEPARTMENT OF PATHOLOGY AND [address] [place] [address] [phone] [address] Uric acid level (03/17/2020 4:15 AM FOCUSED FACTORY MANAGER)Only the most recent of3 resultswithin the time period is included. Pathologist Sig nature Uric acid 4.2 2.4 - 5.7 mg/dL [facility] L Specimen Plasma Performing Organization Address [facility] Phon e Number [facility] DEPARTMENT OF PATHOLOGY AND [address] [place] [address] [phone] [address] LDH (03/17/2020 4:15 AM FOCUSED FACTORY MANAGER)Only the most recent of3 resultswithin the time period is included. Pathologist Sig nature LDH 243 (H) 87 - 225 U/L [facility] Specimen Plasma Performing Organization Address [facility] Phon e Number [facility] DEPARTMENT OF PATHOLOGY AND [address] [place] [address] [phone] [address] Comprehensive metabolic panel (03/17/2020 4:15 AM FOCUSED FACTORY MANAGER)Only the most recent of4 resultswithin the time period is included. Sodium 140 135 - 148 [facility] mEq/L [facility] Potassium 4.0 3.5 - 5.0 [facility] mEq/L [facility] Chloride 106 98 - 112 [facility] mEq/L [facility] CO2 27 24 - 31 mEq/L [facility] Anion gap 7@ANIO 7 - 15 mEq/L [facility] BUN 9 6 - 20 mg/dL [facility] Creatinine 0.63 0.50 - 0.90 [facility] mg/dL [facility] Glucose 122 (H) 65 - 99 mg/dL [facility] Calcium 8.1 (L) 8.3 - 10.2 [facility] mg/dL [facility] Protein 5.5 (L) 6.3 - 8.3 [facility] Comment: g/dL [facility] - [place] 4.6-7.0 g/dL 1 week 4.4-7.6 g/dL 7 months-1year 5.1-7.3 g/dL 1-2 years 5.6-7.5 g/dL >3 years 6.0-8.0 g/dL 18-150 6.3-8.3 g/dL Albumin 2.6 (L) 3.5 - 5.0 [facility] g/dL HOSPITAL A/G ratio 0.9 0.7 - 3.8 [facility] Alkaline phosphatase 119 (H) 35 - 104 U/L [facility] AST 36 (H) 10 - 35 U/L [facility] ALT 37 5 - 50 U/L [facility] Total bilirubin 1.0 0.0 - 1.2 [facility] mg/dL HOSPITAL Specimen Plasma Performing Organization Address [facility] Phon e Number [facility] DEPARTMENT OF PATHOLOGY AND [address] [place] [address] [place] [phone] Hemoglobin A1c (03/15/2020 4:45 AM FOCUSED FACTORY MANAGER) Hemoglobin A1C 4.6 4.0 - 5.6 % [facility] Comment: HOSPITAL HbA1c cutoffs for diagnosing diabetes: 4.0% - 5.6% = normal 5.7% - 6.4% = increased risk for diabetes (prediabetes )9 >=6.5% = diabetes9 Goals for glycemic control (ADA 2016) < 7.0% Target for non adults with diabetes. More or less stringent targets may be appropriate for individual patients. <7.5% Target for Children and adolescents with type 1 diabetes. Specimen Blood Performing Organization Address [facility] Phon e Number [facility] DEPARTMENT OF PATHOLOGY AND [address] [place] [address] [phone] [address] Thyroid stimulating hormone (03/15/2020 4:00 AM FOCUSED FACTORY MANAGER) Pathologist Sig nature TSH 1.41 0.27 - 4.20 uIU/mL [facility] ITAL Specimen Plasma Performing Organization Address City/[facility] Phon e Number [facility] DEPARTMENT OF PATHOLOGY AND [address] [place] [address] [phone] [address] T4 (03/15/2020 4:00 AM FOCUSED FACTORY MANAGER) Pathologist Sig nature T4 6.9 4.5 - 11.7 ug/dL [facility] [place] Specimen Plasma Performing Organization Address City/State/ZIP Code Phon e Number [facility] DEPARTMENT OF PATHOLOGY AND [address] [place], [place] [phone] [facility] [address] [place] [address] Bilirubin direct (03/15/2020 4:00 AM FOCUSED FACTORY MANAGER) Pathologist Sig nature Bilirubin direct 0.5 (H) 0.0 - 0.3 mg/dL [facility] Specimen Plasma Performing Organization Address City/[facility]/ZIP Code Phon e Number [facility] DEPARTMENT OF PATHOLOGY AND [address] [place], [place] [phone] [facility] [address] [place] [address] CT Abdomen WWO Contrast, Pelvis W Contrast (03/14/2020 9:04 PM FOCUSED FACTORY MANAGER) Specimen Narrative Performed At CT ABDOMEN WWO CONTRAST PELVIS W CONTRAS T HM RADIANT CLINICAL INDICATION: pancreatitis TECHNIQUE: Multidetector CT of the abdomen and pelvis was performed before and then following the intravenous administrati on of iodinated contrast with multiplanar reformats. CT imaging was pe rformed with iterative reconstruction technique and/o r automated exposure control to reduce rad iation dose. COMPARISON: 05/26/2015 IMPRESSION: LOWER THORAX: Mosaic attenuation is seen of the lung bases, which can be seen with air trapping from small airways disease/r eactive airways disease. Aortic valve calcifications are identified. T race pericardial effusion. LIVER: Cirrhotic liver. BILIARY: Patient is status post cholecystectomy, wit h expected prominence of the biliary ductal system. SPLEEN: Splenomegaly, measuring 21 cm in length. PANCREAS: Mildly edematous appearance of the pancrea tic head is seen, raising suspicion for acute focal pancreatitis. No yulisa picious pancreatic lesions or fluid collections are identified. Given the wall thickening seen of the distal stomach and duodenum in this region, this appearance could also be reactiv e to gastroduodenitis. ADRENALS: Normal. KIDNEYS: Nonobstructive calculus is seen of interpol ar right kidney. Left kidney is normal. No hydronephrosis or hydroureter. PERITONEUM: Trace ascites. No free intra peritoneal air. VASCULAR: No aortic aneurysm, dissecti on, or pseudoaneurysm. Recanalized umbilical vein is identified. Some anterio r abdominal mesenteric varices are seen. Enlarged splenic vein. Th andreas findings are compatible with portal hypertension. LYMPH NODES: No enlarged lymph nodes i n the abdomen or pelvis. GI: Mild to moderate colonic diverticulosis is seen without diverticulitis. The appendix is normal. No gastrointes tinal tract obstruction. Moderate wall thickening/edema the distal stomach and proximal duodenum is seen with some mild adjacent fat stranding, concerning for mild gastroduodenitis. This appearance could also be reactive to suspected pancreatit is. BONES: There are no acute osseous abnormalities. Mil d degenerative change of the lower thoracic spine. SOFT TISSUES: Unremarkable. Summary: Cirrhotic liver with trace ascites. Enlarged splenic v ein, recanalized umbilical vein, and some anterior abdominal mesenteric varices are seen, compatible with portal hypertension. Mildly edematous appearance of the pancreatic head is seen, raising suspicion for acute focal pancreatitis. Given the wall thickening seen of the distal stomach and duodenum in this region, thi s appearance could also be reactive to gastroduodenitis. Nonobstructive calculus is seen of right renal collecting system. [facility]-[id number] Procedure Note Hm Interface, Radiology Results Incoming - 03/14/2020 11:54 PM [address] [employer]CTORY MANAGER CT ABDOMEN WWO CONTRAST PELVIS W CONTRAST CLINICAL INDICATION: pancreatitis TECHNIQUE: Multidetector CT of the abdom en and pelvis was performed before and then following the intravenous administration of iodinated contrast with multiplanar reformats. CT imaging was performed with iterative reconstruction technique and/or automated exposure control to reduce rad iation dose. COMPARISON: 05/26/2015 IMPRESSION: LOWER THORAX: Mosaic attenuation is see n of the lung bases, which can be seen with air trapping from small airways disease/reactive airways disease. Aortic valve calcifications are identified. Trace pericardial effusion. LIVER: Cirrhotic liver. BILIARY: Patient is status post cholecy stectomy, with expected prominence of the biliary ductal system. SPLEEN: Splenomegaly, measuring 21 cm i n length. PANCREAS: Mildly edematous appearance o f the pancreatic head is seen, raising suspicion for acute focal pancreatitis. No suspicious pancreatic lesions or fluid collections are identified. Given the wall thickening seen of the distal stomach and duodenum in this region, this appearance could a lso be reactive to gastroduodenitis. ADRENALS: Normal. KIDNEYS: Nonobstructive calculus is see n of interpolar right kidney. Left kidney is normal. No hydronephrosis or hydroureter. PERITONEUM: Trace ascites. No free intra peritoneal air. VASCULAR: No aortic aneurysm, dissectio n, or pseudoaneurysm. Recanalized umbilical vein is identified . Some anterior abdominal mesenteric varices are seen. Enlarged splenic vein. These findings are compatible with portal hypertension. LYMPH NODES: No enlarged lymph nodes in the abdomen or pelvis. GI: Mild to moderate colonic diverticul osis is seen without diverticulitis. The appendix is normal. No gastrointestinal tract obstruction. Moderate wall thickening/edema the distal stomach and proximal duodenum is seen with some mild adjacent fat stranding, concerning for mild gastroduo denitis. This appearance could also be reactive to suspected pancreatitis. BONES: There are no acute osseous abnor malities. Mild degenerative change of the lower thoracic spine. SOFT TISSUES: Unremarkable. Summary: Cirrhotic liver with trace ascites. Enla rged splenic vein, recanalized umbilical vein, and some anterior abdominal mesenteric varices are seen, compatible with portal hypertension. Mildly edematous appearance of the pancr eatic head is seen, raising suspicion for acute focal pancreatitis. Given the wall thickening seen of the distal stomach and duodenum in this region, this appearance could also be reactive to gastroduodenitis. Nonobstructive calculus is seen of right renal collecting system. [facility]-[id number] Performing Organization Address [facility] Phon e Number [facility] [address] [place] [id number] Lactic acid level (03/14/2020 5:20 PM FOCUSED FACTORY MANAGER) Pathologist Sig nature Lactic acid 1.5 0.5 - 2.2 mmol/L [facility] Specimen Blood Performing Organization Address [facility] Phon e Number [facility] DEPARTMENT OF PATHOLOGY AND [address] [place] [phone] GENOMIC MEDICINE [address] [address] COVID-19 qualitative PCR (03/14/2020 4:30 PM FOCUSED FACTORY MANAGER) Interpretation Negative results do not prec lude 2019-nCoV infection and should not be used as the sole basis for treatment or other patient management decisions. Negative results must be combined with clinical observations, patient history, and epidemiological THERMAL information. [facility] COVID-19 qualitative Not-Detected Not-Detecte THERMAL PCR result d [facility] COVID-19 qualitative See link below for THERMAL PCR PDF Lab [facility] ReportComment: Case HOSPITAL Number: [id number] Specimen Nasal swab Performing Organization Address [facility] Phon e Number [facility] DEPARTMENT OF PATHOLOGY AND [address] [place], [place] [phone] GENOMIC MEDICINE [facility] [address] [place] [address] [facility] after 03/19/2019 Insurance Payer Benefit Plan / Subscriber ID Effective Dates Phone Addre ss Type Group [employer] [facility] [id number] 04/11/2019-[employer] Exchange CHOICE EXCHANGE EXCHANGE t [employer] [facility] [facility] [id number] 04/11/2017-[employer] PPO PLAN t Advance Directives For more information, please contact: [phone] Type Date Recorded Patient Admissions Director Explanati on Advance Directives, Living Will and Medical Power of Chef Saucier Code Status Date Activated Date Inactivated Comments Full Code 03/14/2020 3:30 PM 03/18/2020 8:34 PM Code Status decision reached by: Patient Full Code 03/14/2020 9:27 AM 03/14/2020 3:30 PM Code Status decision reached by: Patient
--- OUTSIDE RECORDS SUMMARY | 2020-03-19 05:05 | XMS REPORT | Clinical Summary ---
:1960 Author Organization [facility] Address [address] [place] [address] Care Team Providers Name Role Phone Usman Miranda Primary Care Provider Allergies Active Allergy Reactions Severity Noted Date Comments Latex Rash Low 03/28/2017 Morphine Shortness Of Breath, High 06/30/2016 Throat closes, tongue Swelling swelling Medications Medication Sig Dispensed Refills Start Date End Date Status lactulose (CEPHULAC) 10 Take 10 g by 0 Active gram packet mouth 2 (two) times daily . rifAXIMin 550 mg Take 550 mg by 0 Active TabIndications: hepatic mouth 2 (two) encephalopathy times daily. Active Problems Problem Noted Date Epigastric abdominal pain 09/30/2018 Other cirrhosis of liver 09/30/2018 Increased ammonia level 09/30/2018 Social History Tobacco Use Types Packs/Day Years Used Date Never Smoker Smokeless Tobacco: Never Used Alcohol Use Drinks/Week oz/Week Comments No Sex Assigned at Date Recorded Not on file Last Filed Vital Signs Not on file Plan of Treatment Health Maintenance Due Date Last Done Comments BREAST CANCER SCREENING 1960 COLON CANCER SCREENING COLONOSCOPY 1960 CERVICAL CANCER SCREENING PAP ONLY (Age 0104/20/1981 [age]) INFLUENZA VACCINE (#1) 2019 01/21/2017 LIPID PANEL 10/01/2021 10/01/2018, 08/07/2016 Results Not on fileafter 03/19/2019 Advance Directives For more information, please contact: [phone] Code Status Date Activated Date Inactivated Comments Full Code 09/30/2018 8:45 PM 10/03/2018 7:37 PM This code status was determined by: Patient
--- OUTSIDE RECORDS SUMMARY | 2020-03-19 05:06 | XMS REPORT | Continuity of Care Document ---
:1960 Author Organization [facility] t Address [address] [place] [address] Care Team Providers Name Role Phone Usman Miranda Primary Care Physician Nancy HENSLEY Attending Clinician Deo Bullock MD Attending Clinician Lab, Fam Pob I Attending Clinician Unavailable Nasrin REYES, A Attending Clinician Unavailable Alisha HENSLEY Attending Clinician SHAYY DAVEY Attending Clinician Unavailable JUDIT ESCALONA Attending Clinician Unavailable NANCY Admitting Clinician Unavailable Alisha HENSLEY Admitting Clinician SHAYY DAVEY Admitting Clinician Unavailable JUDIT ESCALONA Admitting Clinician Unavailable Payers Payer Name Policy Type Policy Effective Date Expiration Date Sour ce Number [facility] [id number] 2019 [place] CHO[place] 00:00:00 [facility]ational EXCHANGECOM [facility] EXCHANGE MARKETPLACExxxxxx [id number] esentExchange Problems Condition Condition Condition Status Onset Resolution Last Treating Co mments Source Name Details Category Date Date Treatment Clinician Date 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 2 Method i 00:00: st 00 Acute Acute Disease Active 2019-04 [facility] pancreatit pancreatit 2- Me thodi is without is without 00:00: st infection infection 00 or or necrosis necrosis Epigastric Epigastric Disease Active C HI St [...] of Memoria left knee left knee l Outpati ent Clinics Allergies, Adverse Reactions, Alerts Allergy Allergy Status Severity Reaction(s) Onset Inactive Treating Comm ents Source Name Type Date Date Clinician Morphine Propensi Active Other (See 2019-04 Tightness [facility] ty to Comments) 2 of throat Meth dimitri adverse 00:00: st reaction 00 s to drug Latex Propensi Active Rash 2016-[address] [facility] 2-18 [facility]: Medical reaction 00 Center s Morphine Propensi Active Shortness Of Throat [facility] to Breath, 3-22 closes, [facility] - adverse Swelling 00:00: tongue Medical reaction 00 swelling Center s MORPHINE Adverse Active Info Not [facility] Reaction [facility] Social History Social Habit Start Date Stop Date Quantity Comments Source Sex Assigned At [facility] M ethodist Exposure to Not sure [facility] Metho dist SARS-CoV-2 (event) Tobacco use and 2018-10-03 2018-10-[address] [facility] - exposure 00:00:00 [facility]00 [facility] Alcohol intake 2018-10-03 2018-10-[address] - 00:00:00 00:00:00 non-drinker of Medical Ce nter alcohol (finding) Smoking Status Start Date Stop Date Source Never sm[facility] Medications Ordered Filled Start Stop Current Ordering Indication Dosage Frequency Signature Comments Components Source Medication Medication Date Date Medication? Clinician (SIG) Name Name ibuprofen 2019-04- No 400mg Take 400 [place] (ADVIL) 200 2-08 12-08 mg by Method i MG tablet 16:34: 00:[address] 43 :00 once. lactulose 2019-04 Yes 20g QD Take 20 g Bárbara ston 10 gram/15 2-08 by mouth Metho di mL (15 mL) 16:34: daily. st solution 40 HYDROcodone 2019-04- Yes acute pain 1{tbl} Q6H Take 1 Dillard -acetaminop 2-08 12-15 tablet by Nv hussein woods (NORCO) 00:00: 23:[address] 5-325 mg 00 :00 every 6 per tablet (six) hours as needed for moderate pain for up to 7 days .acute pain. Max Daily Amount: 4 tablets Meloxicam Meloxicam 2019- No Gm [address] 6-09 07-09 [facility] 00:[facility]: [facility]:00 [facility] 00 :00 l Outpati ent Clinics lactulose Yes 10g Q.5D Take [address] (CEPHULAC) 6-25 by mouth 2 Lesly es - 10 gram 17:37: (two) Medical packet 13 times Center daily . rifAXIMin Yes hepatic 550mg Q.5D Take [address] 550 mg Tab 6-25 encephalopa mg by L ukes - 17:37: thy mouth 2 Medical 13 (two) Center times daily. Pantoprazol Pantoprazol Yes Gm not [facility] [...] [facility] - Clavulanate Clavulanate [facility] Vital Signs Vital Name Observation Time Observation Value Comments Source Systolic blood 2020-03-18 07:34:26 125 mm[Hg] Rishabh n Congregational pressure Diastolic blood 2020-03-18 07:34:26 81 mm[Hg] Nestor on Congregational pressure Heart rate 2020-03-18 07:34:26 61 /min Nishant Chaidez Body temperature 2020-03-18 07:34:26 36.61 Sandee [place] [facility] Respiratory rate 2020-03-18 07:34:26 19 /min [place] [facility] Oxygen saturation in 2020-03-18 07:34:26 95 /min Nishant Chaidez Arterial blood by Pulse oximetry Body weight 2020-03-18 05:00:00 119.614 kg Nishant Chaidez BMI 2020-03-18 05:00:00 45.26 kg/m2 Nishant Chaidez Body height 2020-03-14 16:30:50 162.6 cm Nishant Chaidez Procedures Procedure Date / Time Performed Performing Clinician [facility] e BASIC METABOLIC PANEL 2020-03-18 04:18:00 Jeremy Bullock HC COMPLETE BLD COUNT 2020-03-18 04:18:00 Jeremy Bullock W/AUTO DIFF Deo MAGNESIUM LEVEL 2020-03-18 04:18:00 Jeremy Bullock HEPATIC FUNCTION PANEL 2020-03-18 04:18:00 Jeremy Bullock PHOSPHORUS LEVEL 2020-03-18 04:18:00 Dindavid, Jeremy Desouza PROTHROMBIN TIME WITH INR 2020-03-18 04:18:00 Jeremy Bullock LIPASE LEVEL 2020-03-18 04:18:00 Jeremy Bullock AMYLASE LEVEL 2020-03-18 04:18:00 Jeremy Bullock Meth odist Deo ALPHA FETOPROTEIN 2020-03-18 04:18:00 Myra Quinn [facility]ational ESTIMATED GFR 2020-03-18 04:18:00 Myra Quinn Me thodist SMEAR REVIEW 2020-03-18 04:18:00 Myra Quinn Me thodist CBC WITH PLATELET AND 2020-03-17 04:15:00 Nakia Cruz [facility]ational DIFFERENTIAL COMPREHENSIVE METABOLIC 2020-03-17 04:15:00 Nakia Cruz [facility]ational PANEL MAGNESIUM LEVEL 2020-03-17 04:15:00 NancyNakia Meth odist PHOSPHORUS LEVEL 2020-03-17 04:15:00 NancyNakia Nishant Met hodist PROTHROMBIN TIME WITH INR 2020-03-17 04:15:00 Nakia Cruz [place] [facility] URIC ACID LEVEL 2020-03-17 04:15:00 NancyNakia Nishant Meth odist LDH 2020-03-17 04:15:00 Nancy Nakia Dillard Meth odist ESTIMATED GFR 2020-03-17 04:15:00 NancyVigneshNakia Dillard Meth odist SMEAR REVIEW 2020-03-17 04:15:00 NancyNakia Nishant Meth odist CBC WITH PLATELET AND 2020-03-16 04:32:00 Nakia Crzu [facility]ational DIFFERENTIAL COMPREHENSIVE METABOLIC 2020-03-16 04:32:00 Nakia Cruz [facility] PANEL MAGNESIUM LEVEL 2020-03-16 04:32:00 NancyNakia Dillard Meth odist PHOSPHORUS LEVEL 2020-03-16 04:32:00 Nancy Nakia Nishant Met hodist PROTHROMBIN TIME WITH INR 2020-03-16 04:32:00 Nakia Cruz [place] [facility] URIC ACID LEVEL 2020-03-16 04:32:00 NancyNakia Dillard Meth odist LDH 2020-03-16 04:32:00 NancyNakia Meth odist ESTIMATED GFR 2020-03-16 04:32:00 NancyNakia Meth odist SMEAR REVIEW 2020-03-16 04:32:00 NancyNakia Nishant Meth odist CBC WITH PLATELET AND 2020-03-15 04:45:00 Nakia Cruz n [facility]ational DIFFERENTIAL PROTHROMBIN TIME WITH INR 2020-03-15 04:45:00 NancyNakia Aurelio wilburn [facility]ational HEMOGLOBIN A1C 2020-03-15 04:45:00 Nakia Cruz Meth odist SMEAR REVIEW 2020-03-15 04:45:00 Nakia Cruz Meth odist COMPREHENSIVE METABOLIC 2020-03-15 04:00:00 Nancy Nakia muñiz [facility]ational PANEL MAGNESIUM LEVEL 2020-03-15 04:00:00 Nakia Cruz Meth odist PHOSPHORUS LEVEL 2020-03-15 04:00:00 Nakia Cruz Met hodist THYROID STIMULATING 2020-03-15 04:00:00 Nakia Cruz [facility] HORMONE T4 2020-03-15 04:00:00 Nakia Cruz Meth odist URIC ACID LEVEL 2020-03-15 04:00:00 Nakia Cruz Meth odist LDH 2020-03-15 04:00:00 Nakia Cruz Meth odist ESTIMATED GFR 2020-03-15 04:00:00 NancyNakia Flores odist BILIRUBIN DIRECT 2020-03-15 04:00:[address] ABDOMEN WWO CONTRAST 2020-03-14 21:04:21 Nakia Cruz [facility] PELVIS W CONTRAST COMPREHENSIVE METABOLIC 2020-03-14 17:20:00 Nakia Cruz [facility]ational PANEL HC COMPLETE BLD COUNT 2020-03-14 17:20:00 Nakia Cruz n Congregational W/AUTO DIFF LIPASE LEVEL 2020-03-14 17:20:00 NancyNakia Meth odist MAGNESIUM LEVEL 2020-03-14 17:20:00 Nakia Cruz odist PHOSPHORUS LEVEL 2020-03-14 17:20:00 NancyNakia Met hodist PROTHROMBIN TIME WITH INR 2020-03-14 17:20:00 Nakia Cruz [facility]ational LACTIC ACID LEVEL 2020-03-14 17:20:00 Nakia Cruz Me thodist ESTIMATED GFR 2020-03-14 17:20:00 NancyNakia Meth odist SMEAR REVIEW 2020-03-14 17:20:00 NancyNakia Meth odist COVID-19 QUALITATIVE PCR 2020-03-14 16:30:00 Tripp Cruzg Bárbara hopkins [facility]ational Plan of Care Planned Activity Planned Date Details Comments Source Future Scheduled 2021-10-[address] [facility] 00:00:00 (procedure) [code = [facility] 08138904] Future Scheduled 2019-12-[address] [facility] - Test 00:00:00 (#1) [code = [facility] Center INFLUENZA VACCINE (#1)] Future Scheduled 2019-11-10 INFLUENZA VACCINE [place] [facility] Test 00:00:00 [code = INFLUENZA VACCINE] Future Scheduled 2011 BREAST CANCER [place] Me thodist Test 00:00:00 SCREENING [code = BREAST CANCER SCREENING] Future Scheduled 2011 COLONOSCOPY SCREENING [place] [facility] Test 00:00:00 [code = COLONOSCOPY SCREENING] Future Scheduled 2011 SHINGLES VACCINES [place] [facility] Test 00:00:00 (#1) [code = SHINGLES VACCINES (#1)] Future Scheduled [address] [facility] Test 00:00:00 [facility] cervix (procedure) [code = 044055129] Future Scheduled 1982 Screening for [facility] thodist Test 00:00:00 malignant neoplasm of cervix (procedure) [code = 080251354] Future Scheduled [address] [facility] - Test 00:00:00 malignant neoplasm of [facility] Center breast (procedure) [code = 156831545] Future Scheduled [address] [facility] - Test 00:00:00 [facility] colon (procedure) [code = 808348868] Encounters Start End Encounter Admission Attending Care Care Encounter Source Date/Time Date/Time Type Type Clinicians Facility Department ID 2020-03-14 2020-03-18 Inpatient DINAKAR, [facility] [id number] [place] 00:00:00 00:00:00 JEREMY [address] 2020-02-13 2020-02-13 Laboratory Lab, Adc [facility] [id number] 10:22:10 10:42:10 Only Fam Pob I Health [id number] [place] [id number] Professio [id number] nal 0[address] One 2019-09-28 2019-09-28 [facility] [id number] 09:00:00 09:00[facility]00 [facility] 2019-09-18 2019-09-18 [facility] [id number] 09:30:00 09:30:00 [facility] ent [facility] 2019-08-14 2019-08-14 Transition Jocelyne Alexandra [id number] 00:00:00 00:00:00 of Care Jovanny Sotelo [id number] [place] [id number] [id number] 2019-08-10 2019-08-11 [facility] [id number] 02:55:00 16:09:00 Encounter Wes Amin [id number] [place] 4.2.7.2.686 [place] [id number] Results Test Description Test Time Test Comments Results Result Comments Source Alpha fetoprotein 2020-03-18 15:09:44 Test Item Value Reference Range Interpretation Comme nts Alpha fetoprotein (test code = 5.3 ng/mL 0-8.3 The Luz 8000 AFP immunoassay was 15188-9) used. Results o btained with different assay methods or kits should not be u sed interchangeably and may be diff erent. Nishant MethodistSmear [id number] 08:15:21 Test Item Value Reference Range Interpretation Comments Platelet slide review (test Mkd decreased A code = 61403-9) Anisocytosis (test code = Moderate 702-1) Polychromasia (test code = Moderate 74640-1) Ovalocytes (test code = 774-0) Moderate Lab Interpretation (test code = Abnormal 94961-0) Nishant MethodistBasic metabolic [id number] 07:07:39 Test Item Value Reference Range Interpretation Comments Sodium (test code = 2951-2) 144 135- 148 mEq/L Potassium (test code = 2823-3) 4.3 3.5- 5.0 mEq/L Chloride (test code = 2075-0) 106 98- 112 mEq/L CO2 (test code = 2027-9) 30 24- 31 mEq/L Anion gap (test code = 28457-0) 8@ANIO 7- 15 mEq/L BUN (test code = 3094-0) 10 mg/dL 6-20 Creatinine (test code = 2160-0) 0.64 mg/dL 0.5-0.9 Glucose (test code = 2345-7) 103 mg/dL 65-99 H Calcium (test code = 37290-2) 8.3 mg/dL 8.3-10.2 Lab Interpretation (test code = Abnormal 84725-4) [facility] MethodistLipase [id number] 07:07:39 Test Item Value Reference Range Interpretation Comments Lipase (test code = 3040-3) 68 U/L 13-60 H Lab Interpretation (test code = Abnormal 10301-6) [facility] MethodistHepatic function [id number] 07:07:38 Test Item Value Reference Range Interpretation Comments Albumin (test code = 2.6 g/dL 3.5-5 L 1750-7) Total bilirubin (test 0.8 mg/dL 0-1.2 code = 1974-) Bilirubin direct (test 0.3 mg/dL 0-0.3 code = 1967-10) Alkaline phosphatase 117 U/L 35-104 H (test code = 6768-6) Protein (test code = 6.1 g/dL 6.3-8.3 L -[place] n 2885-2) 4.6-7.0 g /dL1 week 4.4-7.6 g/dL 7 months-1year 5.1-7.3 g/dL 1-2 years 5.6-7.5 g/dL>3 years 6.0-8.0 g/wU88-649 6.3-8. 3 g/dL ALT (test code = 1742-6) 36 U/L 5-50 AST (test code = 1920-8) 33 U/L 10-35 Lab Interpretation (test Abnormal code = 28978-0) [facility] MethodistMagnesium [id number] 07:07:38 Test Item Value Reference Range Interpretation Comments Magnesium (test code = 90723-6) 1.9 mg/dL 1.6-2.6 Nishant MethodistEstimated [id number] 07:07:38 Test Item Value Reference Range Interpretation Comments Estimated GFR (test >=90 mL/min/1.73 m2 Mikayla cornell Units code = 5488) InterpretationG 1 >=90 Normal or highG2 60-89 Mildly pnbtaflhaL0r 45-59 Mildly to mode rately ymadtotokQ3s 30-44 Moderately to severely decreasedG4 15-29 Severely decre asedG5 <15 Kidn ey failureThe eGFR was calculated cb peng the Chronic Kidney Disease Epidemiology Co llaboration (CKD-EPI) equat ion. Interpretation is based on recommendations of the National Kidney Foundation-Kidn ey Disease Outcomes Qualit y Initiative (NKF-KDOQI) pub lished in 2014. Nishant MethodistPhosphorus [id number] 07:07:34 Test Item Value Reference Range Interpretation Comments Phosphorus (test code = 2777-1) 2.8 mg/dL 2.4-4.5 Dillard MethodistAmylase [id number] 07:07:32 Test Item Value Reference Range Interpretation Comments Amylase (test code = 1798-8) 51 U/L 28-100 Nishant RileyistProthrombin time with [id number] 06:53:42 Test Item Value Reference Range Interpretation Comments Prothrombin time (test 16.3 11.5- 14.5 sec H code = 5902-2) INR (test code = 1.3 The Interna tional 57212-1) Normalized Rati o (INR) is a therapeuti c monitoring tool for patients who ar e stable on oral anticoagulant t herapy. An INR of 2.0-3 .0 is suggested for d eep vein thrombosis/pulm onary embolism. Lab Interpretation Abnormal (test code = 60432-5) Dillard MethodistCBC with platelet and [id number] 06:32:47 Test Item Value Reference Range Interpretation Comments WBC (test code = 35846-8) 1.83 4.50- 11.00 k/uL L RBC (test code = 31564-6) 3.23 m/uL 4.2-5.5 L HGB (test code = 718-7) 9.8 g/dL 12-16 L HCT (test code = 4544-3) 30.7 % 37-47 L MCV (test code = 787-2) 95.0 fL 82-100 MCH (test code = 785-6) 30.3 pg 27-34 MCHC (test code = 786-4) 31.9 g/dL 31-37 RDW - SD (test code = 51.5 fL 37-55 91638-9) MPV (test code = 75986-0) 11.2 fL 8.8-13.2 Platelet count (test code 46 150- 400 k/uL L = 32781-9) Nucleated RBC (test code 0.00 /100 WBC = 61191-5) Neutrophils (test code = 59.1 % 39-69 38119-1) Lymphocytes (test code = 25.7 % 25-45 23114-2) Monocytes (test code = 10.9 % 0-10 H 60209-8) Eosinophils (test code = 3.3 % 0-5 96620-4) Basophils (test code = 0.5 % 0-1 36103-3) Immature granulocytes 0.5 % 0-1 "Immat ure (test code = 39116-1) granul ocytes" (promyelocytes, myelocytes, metamyelocytes) Lab Interpretation (test Abnormal code = 69905-7) [facility] MethodistComprehensive metabolic [id number] 06:54:25 Test Item Value Reference Range Interpretation Comments Sodium (test code = 140 135- 148 mEq/L 2951-2) Potassium (test code = 4.0 3.5- 5.0 mEq/L 2823-3) Chloride (test code = 106 98- 112 mEq/L 2074-0) CO2 (test code = 2027-) 27 24- 31 mEq/L Anion gap (test code = 7@ANIO 7- 15 mEq/L 56351-1) BUN (test code = 3094-0) 9 mg/dL 6-20 Creatinine (test code = 0.63 mg/dL 0.5-0.9 0-0) Glucose (test code = 122 mg/dL 65-99 H 2345-7) Calcium (test code = 8.1 mg/dL 8.3-10.2 L 75460-1) Protein (test code = 5.5 g/dL 6.3-8.3 L -[place] 2885-2) 4.6-7.0 g/dL1 week 4.4-7 .6 g/dL7 months-1y ear 5.1-7 .3 g/dL1-2 years 5.6-7 .5 g/dL>3 years 6.0-8 .0 g/pY15-550 6.3-8 .3 g/dL Albumin (test code = 2.6 g/dL 3.5-5 L 1751-7) A/G ratio (test code = 0.9 0.7-3.8 1759-0) Alkaline phosphatase 119 U/L 35-104 H (test code = 6768-6) AST (test code = 1920-8) 36 U/L 10-35 H ALT (test code = 1742-6) 37 U/L 5-50 Total bilirubin (test 1.0 mg/dL 0-1.2 code = 1975-2) Lab Interpretation (test Abnormal code = 14757-2) Nishant [id number] 06:54:25 Test Item Value Reference Range Interpretation Comments LDH (test code = 93699-7) 243 U/L 87-225 H Lab Interpretation (test code = Abnormal 02265-8) Nishant ChaidezUric acid [id number] 06:54:25 Test Item Value Reference Range Interpretation Comments Uric acid (test code = 3084-1) 4.2 mg/dL 2.4-5.7 Nishant ChaidezHemoglobin [id number] 12:16:07 Test Item Value Reference Range Interpretation Comments Hemoglobin A1C (test 4.6 % 4-5.6 HbA1c c utoffs for code = 39418-1) diagnosing d iabetes:4.0% - 5.6% = normal 5.7% - 6.4% = increase d risk for diabetes (prediabetes)9> =6.5% = kuxyqvfr4Sdtla for glycemic contro l (ADA 2016)< 7.0% Ta rget for non jet lts with diabetes. More or less stringent targe ts may be appropriate for individual juan pablo ents. <7.5% Target for Children and ad olescents with type 1 pallavi betes. Nishant [id number] 08:43:11 Test Item Value Reference Range Interpretation Comments T4 (test code = 3026-2) 6.9 ug/dL 4.5-11.7 [facility] MethodistThyroid stimulating [id number] 06:09:22 Test Item Value Reference Range Interpretation Comments TSH (test code = 3016-3) 1.41 0.27- 4.20 uIU/mL [facility] MethodistBilirubin [id number] 06:05:32 Test Item Value Reference Range Interpretation Comments Bilirubin direct (test code = 0.5 mg/dL 0-0.3 H 1968-7) Lab Interpretation (test code = Abnormal 04449-3) [facility] MethodistCOVID-19 qualitative [id number] 05:30:24 Test Item Value Reference Range Interpretation Comments Interpretation (test Negative results do code = 5219550) not preclude 2019-nCoV infection and should not be used as the sole basis for treatment or other patient management decisions. Negative results must be combined with clinical observations, patient history, and epidemiological information. COVID-19 qualitative Not-Detected Not-Detected PCR result (test code = 59064-0) COVID-19 qualitative See link below for C ase Number: PCR (test code = PDF Lab Report [id number]) [facility] MethodistCT Abdomen WWO Contrast, Pelvis W [id number] 23:51:35Hm Interface, Radiology Results - 03/14/2020 11:54 PM CSTCT ABDOMEN WWO CONTRAST PELVIS W CONTRASTCLINICAL INDICATION: pancreatitisTECHNIQUE: Multidetector CT of the abdomen and pelvis was performed before and then following the intravenous administration of iodinated contrast with multiplanar reformats. CT imaging was performed with iterative reconstruction technique and/or automated exposure control to reduce radiation dose.COMPARISON: 05/26/2015IMPRESSION:LOWER THORAX: Mosaic attenuation is seen of the lung bases, which can be seen with air trapping from small airways disease/reactiveairways disease. Aortic valve calcifications are identified. Trace pericardial effusion.LIVER: Cirrhotic liver.BILIARY: Patient is status post cholecystectomy, with expected prominence of the biliary ductal system. SPLEEN: Splenomegaly, measuring 21 cm in length.PANCREAS: Mildly edematous appearance of the pancreatic head is seen, raising suspicion for acute focal pancreatitis. No suspicious pancreatic lesions or fluid collections are identified. Given the wall thickening seen of the distal stomach and duodenum in this region, this appearance could also be reactive to gastroduodenitis.ADRENALS: Normal. KIDNEYS: Nonobstructive calculus is seen of interpolar right kidney. Left kidney is normal. No hydronephrosis or hydroureter.PERITONEUM: Trace ascites. No free intraperitoneal air. VASCULAR: No aortic aneurysm, dissection, or pseudoaneurysm.Recanalized umbilical vein is identified. Some anterior abdominal mesenteric varices are seen. Enlarged splenic vein. These findings are compatible with portal hypertension.LYMPH NODES: No enlarged lymph nodes in the abdomen or pelvis.GI: Mild to moderate colonic diverticulosis is seen without diverticulitis. The appendix is normal. No gastrointestinal tract obstruction. Moderate wall thickening/edema the distal stomach and proximal duodenum is seen with some mild adjacent fat stranding, concerning for mild gastroduodenitis. This appearance could also be reactive to suspected pancreatitis.BONES: There are no acute osseous abnormalities. Mild degenerative change of the lower thoracic spine.SOFT TISSUES: Unremarkable.Summary:Cirrhotic liver with trace ascites. Enlarged splenic vein, recanalized umbilical vein, and some anterior abdominal mesenteric varices are seen, compatible with portal hypertension.Mildly edematous appearance of the pancreatic head is seen, raising suspicion for acute focal pancreatitis. Given the wall thickening seen ofthe distal stomach and duodenum in this region, this appearance could also be reactive to gastroduodenitis.Nonobstructive calculus is seen of right renal collecting system.[facility]-[id number] MethodistLactic acid [id number] 18:33:22 Test Item Value Reference Range Interpretation Comments Lactic acid (test code = 85674-8) 1.5 mmol/L 0.5-2.2 [facility] MethodistRAD, CHEST, 1 VIEW, NON [id number] 07:50:00Reason for exam:->SOBShould this be performed at the bedside?->YesFINAL REPORT CLINICAL HISTORY: SOB TECHNIQUE: 1 view of the chest. COMPARISON: None IMPRESSION: There is pulmonary vascular congestion with prominent lung markings bilaterally. Subpulmonic pleural effusions cannot be excluded. The cardiomediastinal silhouette is magnified by technique. Signed: Franky Louis MDReport Verified Date/Time: 10/03/2018 07:50:47 Reading Location: [facility] Radiology Reading Room [id number] 07:37:00 Test Item Value Reference Range Interpretation Comments MAGNESIUM (BEAKER) (test code = 1.6 mg/dL 1.6-2.6 627) BASIC METABOLIC [id number] 07:37:00 Test Item Value Reference Range Interpretation [...] DIALYSIS PATIEN TS. Specimen slightly ictericHEPATIC FUNCTION [id number] 07:37:00 Test Item Value Reference Range Interpretation [...] 35 U/L 6-55 347) Specimen slightly ictericPROTHROMBIN TIME/[id number] 06:25:00 Test Item Value Reference Range Interpretation [...] mechanical heart valves.CBC W/PLT COUNT & AUTO [id number] 06:16:00 Test Item Value Reference Range Interpretation [...] = 3438) Received comment: User comments: Slide comments:[id number] 05:58:00 Test Item Value Reference Range Interpretation Comments MAGNESIUM (BEAKER) (test code = 1.6 mg/dL 1.6-2.6 627) BASIC METABOLIC [id number] 05:58:00 Test Item Value Reference Range Interpretation [...] DIALYSIS PATIEN TS. Specimen slightly ictericHEPATIC FUNCTION [id number] 05:58:00 Test Item Value Reference Range Interpretation [...] 39 U/L 6-55 347) Specimen slightly ictericPROTHROMBIN TIME/[id number] 05:26:00 Test Item Value Reference Range Interpretation [...] mechanical heart valves.CBC W/PLT COUNT & AUTO [id number] 05:20:00 Test Item Value Reference Range Interpretation [...] WBC 0-0 (test code = 413) VITAMIN [id number] 06:57:00 Test Item Value Reference Range Interpretation Comments VITAMIN B12 (BEAKER) (test code = 178 pg/mL 213-816 L 774) [id number] 06:57:00 Test Item Value Reference Range Interpretation Comments FERRITIN (BEAKER) (test code = 361) 21 ng/mL 5-275 FOLATE, [id number] 06:57:00 Test Item Value Reference Range Interpretation [...] 28 % 20-55 (test code = 2590) [id number] 05:59:00 Test Item Value Reference Range Interpretation Comments MAGNESIUM (BEAKER) (test code = 1.7 mg/dL 1.6-2.6 627) BASIC METABOLIC [id number] 05:59:00 Test Item Value Reference Range Interpretation [...] FOR DIALYSIS PATIEN TS. Specimen slightly ictericLIPID [id number] 05:59:00 Test Item Value Reference Range Interpretation [...] Very High >=190 Specimen slightly ictericHEPATIC FUNCTION [id number] 05:59:00 Test Item Value Reference Range Interpretation [...] = 41 U/L 6-55 347) Specimen slightly [id number] 05:59:00 Test Item Value Reference Range Interpretation Comments LIPASE (BEAKER) (test code = 749) 35 U/L 8-78 Specimen slightly ictericPROTHROMBIN [id number] 05:58:00 Test Item Value Reference Range Interpretation [...] mechanical heart valves.CBC W/PLT COUNT & AUTO [id number] 05:37:00 Test Item Value Reference Range Interpretation [...] (test code = 414) MONOCYTES ABSOLUTE COUNT ([facility]) 0.24 K/ L 0.24-0.36 (test code = 415) EOSINOPHILS ABSOLUTE COUNT 0.12 K/ L 0.04-0.36 ([facility]) (test code = 416) BASOPHILS ABSOLUTE COUNT ([facility]) 0.02 K/ L 0.01-0.08 (test code = 417) IMMATURE GRANULOCYTES-RELATIVE 0 % 0-1 PERCENT ([facility]) (test code = 2801) POCT-HEMOGLOBIN [id number] 06:12:00 Test Item Value Reference Range Interpretation Comments POC-HEMOGLOBIN METER 8.6 g/dL 12.0-15.0 L TESTED AT [facility] 6720 ([facility]) (test code = [place] [id number])
--- OUTSIDE RECORDS SUMMARY | 2020-03-19 05:07 | XMS REPORT | Summary of Care ---
:1960 Author Organization [facility] Address [address] [place] [id number] Care Team Providers Name Role Phone Madhu Miranda MD Primary Care Provider [phone] Reason for Visit Reason Comments LAB Encounter Details Date Type Department Care Team Description 02/13/2020 Laboratory Only [facility] Family Kamaljit, RADHA Funes [address] [place] [address] [place] [address] Exposure to Medicine - [facility] Fam Pob I SARS-associated [address] [place] [address] coronaviru s ([address] Drive Dx) [place] [id number] Allergies Active Allergy Reactions Severity Noted Date Comments Morphine Anaphylaxis, Shortness of High 06/30/2016 Th roat closes, tongue Breath, Swelling swelling documented as of this encounter (statuses as of 02/13/2020) Medications Medication Sig Dispensed Refills Start Date End Date Status acetaminophen-codeine Take 1 tablet by 30 tablet 0 08/11/2019 Active 300-30 mg mouth every 4 tabletIndications: (four) hours as Cirrhosis of liver needed for Pain without ascites, (scale 4-6). unspecified hepatic cirrhosis type documented as of this encounter (statuses as of 02/13/2020) Active Problems Problem Noted Date SBO (small bowel obstruction) 08/10/2019 Intractable nausea and vomiting 08/09/2016 Morbid obesity with body mass index of 40.0-49.9 08/07 Morbid obesity with body mass index of 50 or higher Nausea & vomiting 08/07/2016 documented as of this encounter (statuses as of 02/13/2020) Immunizations Name Administration Dates Next Due Influenza Virus Vaccine Quad .5 mL IM 6+ MO 08/11/2019 documented as of this encounter Social History Tobacco Use Types Packs/Day Years Used Date Never Smoker Smokeless Tobacco: Never Used Alcohol Use Drinks/Week oz/Week Comments Not Currently Sex Assigned at Date Recorded Not on file documented as of this encounter Last Filed Vital Signs Not on filedocumented in this encounter Nursing Notes Rere Mary MA - 02/13/2020 11:20 AM CSTZenaida Goss is a 59 year old female here for a Rule Out Covid-19 Nasopharyngeal Swab. Patient educated on plan of care for visit, swabbing technique, risks and benefits of test and length of time to receive results. Verbal consent obtained to perform test. CDC Fact Sheet for Patients provided to patient. All droplet and contact precautions taken with appropriate PPE worn while interacting with patient. - Goggles - N95 Mask - Gloves - Gown RR=16 % O2 Sat=97 Patient swabbed using appropriate nasopharyngeal technique, and patient tolerated well. Patient was discharged in stable condition. Rere Mary MA 02/13/2020 10:30 AM R ATTENDANT documented in this encounter Plan of Treatment Name Type Priority Associated Diagnoses Order S chedule COVID-19 ([facility] Routine Exposure to Exp ected: 02/13/2020, TESTING) SARS-associated Expires: 07/2020 coronavirus Health Maintenance Due Date Last Done Comments HEPATITIS C (HCV) SCREEN 1960 PNEUMOCOCCAL 0-64 YEARS COMBINED SERIES (1 of 1 - 1967 PPSV23) Depression Screening 1973 DTaP,Tdap,and Td Vaccines (1 - Tdap) 1980 PAP SMEAR 1982 Breast Cancer Screening (MAMMOGRAM) 2001 COLON CANCER SCREENING ANNUAL FIT/FOBT 2011 COLON CANCER SCREENING FIT DNA EVERY 3 YEARS 2011 COLON CANCER SCREENING SIGMOIDOSCOPY EVERY 5 YEARS 2011 COLONOSCOPY 2011 Colorectal Cancer Screening 2011 Zoster Recombinant Vaccine (SHINGRIX) (1 of 2) 2011 INFLUENZA VACCINE (#1) 2019 08/11/2019 documented as of this encounter Results Not on filedocumented in this encounter Visit Diagnoses Diagnosis Exposure to SARS-associated coronavirus - Primary documented in this encounter Additional Health Concerns Infection Onset Date Last Indicated Resolved Time COVID-19 Rule Out 02/13/2020 02/13/2020 documented as of this encounter Insurance Payer Benefit Plan / Subscriber ID Effective Phone Address T e Group Dates [facility] [id number] 2019-[facility] [phone] [address] [employer] [facility] [phone] [place] [address] documented as of this encounter
--- NOTE | 2020-03-19 05:25 | ER ---
Nurse's Notes [facility] Name: Zenaida Goss Age: 59 yrs Sex: Female : 1960 Arrival Date: 03/19/2020 Time: 05:04 Bed 27 Private MD: Diagnosis: Abdominal tenderness;Acute pancreatitis;Obesity, unspecified;Unspecified cirrhosis of liver-ANAYA Presentation: 03/19 05:16 Chief complaint: Patient states: i was dc from [facility] yesterday for Pancreatitis. Now I mg2 have nausea and epigastric pain radiating to my back. Coronavirus screen: Client denies travel out of the [place] in the last 14 days. At this time, the client does not indicate any symptoms associated with coronavirus-19. Ebola Screen: No symptoms or risks identified at this time. Initial Sepsis Screen: Does the patient meet any 2 criteria? No. Patient's initial sepsis screen is negative. Does the patient have a suspected source of infection? No. Patient's initial sepsis screen is negative. Risk Assessment: Do you want to hurt yourself or someone else? Patient reports no desire to harm self or others. Onset of symptoms was March 19, 2020. 05:16 Method Of Arrival: Ambulatory mg2 05:16 Acuity: TANK 3 mg2 Triage Assessment: 05:19 General: Appears in no apparent distress. comfortable, Behavior is calm, cooperative. mg2 Pain: Complains of pain in abdomen Pain radiates to back. EENT: No signs and/or symptoms were reported regarding the EENT system. Neuro: Level of Consciousness is awake, alert, obeys commands, Oriented to person, place, time, situation. Cardiovascular: Capillary refill < 3 seconds Patient's skin is warm and dry. Respiratory: Airway is patent Respiratory effort is even, unlabored, Respiratory pattern is regular, symmetrical. GI: Reports epigastric pain, nausea. : No signs and/or symptoms were reported regarding the genitourinary system. Derm: Skin is intact, is healthy with good turgor, Skin is pink, warm \T\ dry. normal. Musculoskeletal: Circulation, motion, and sensation intact. Capillary refill < 3 seconds. Historical: - Allergies: 05:19 Morphine (Anaphylaxis); mg2 - Home Meds: 05:19 Lactulose Oral [Active]; mg2 - PMHx: 05:19 Anemia; breast cancer; Cirrhosis; fatty liver; Pancreatitis; varices; mg2 - PSHx: 05:19 Appendectomy; Cholecystectomy; Hysterectomy; Lumpectomy; mg2 - Immunization history:: Flu vaccine status is unknown. - Social history:: Smoking status: Patient denies any tobacco usage or history of. Patient/guardian denies using alcohol, street drugs, IV drugs. - Family history:: not pertinent. Screenin:21 Abuse screen: Denies threats or abuse. Denies injuries from another. Nutritional mg2 screening: No deficits noted. Tuberculosis screening: No symptoms or risk factors identified. 05:21 Fall Risk mg2 Assessment: 05:21 General: see triage note. mg2 06:33 Reassessment: patient refused to be transferred back to [facility]. Provider mg2 informed. Vital Signs: 05:16 BP 122 / 65; Pulse 84; Resp 18; Temp 98.1; Pulse Ox 100% on R/A; Weight 117.93 kg; mg2 Height 5 ft. 4 in. (162.56 cm); Pain 10/10; 05:16 Body Mass Index 44.63 (117.93 kg, 162.56 cm) mg2 ED Course: 05:04 Patient arrived in ED. ag3 05:07 Homero Terrell MD is Attending Physician. vicente 05:16 Jovanny Cantor RN is Primary Nurse. mg2 05:18 Triage completed. mg2 05:19 Arm band placed on. mg2 05:21 Patient has correct armband on for positive identification. mg2 05:21 No provider procedures requiring assistance completed. mg2 05:35 Inserted saline lock: 22 gauge in left forearm, using aseptic technique. mg2 05:37 XRAY Chest (1 view) In Process Unspecified. EDMS 06:20 Inserted saline lock: 22 gauge in left hand, using aseptic technique. rr5 07:55 CT Abd/Pelvis - IV Contrast Only In Process Unspecified. EDMS 09:45 Patient transferred, IV remains in place. iw Administered Medications: 05:35 Drug: NS 0.9% 1000 ml Route: IV; Rate: 1 bolus; Site: left forearm; mg2 05:35 Drug: NS 0.9% 1000 ml Route: IV; Rate: 1 bolus; Site: right antecubital; mg2 05:36 Drug: Pepcid 20 mg Route: IVP; Site: left forearm; mg2 06:33 Follow up: Response: No adverse reaction mg2 05:36 Drug: Zofran (Ondansetron) 4 mg Route: IVP; Site: left forearm; mg2 07:06 Follow up: Response: No adverse reaction mg2 05:40 Drug: fentaNYL (PF) 25 mcg Route: IVP; Site: left forearm; mg2 06:33 Follow up: Response: No adverse reaction mg2 06:32 Drug: fentaNYL (PF) 25 mcg Route: IVP; Site: left forearm; mg2 07:07 Follow up: Response: No adverse reaction mg2 06:33 Drug: Zofran (Ondansetron) 4 mg Route: IVP; Site: left hand; mg2 07:07 Follow up: Response: No adverse reaction mg2 09:39 Drug: NS 0.9% 1000 ml Route: IV; Rate: 125 ml/hr; Site: left hand; iw Outcome: 05:25 ER care complete, transfer ordered by MD. zhang 09:45 Transferred by ground EMS to [facility], Transfer form completed. X-rays iw sent w/ patient. 09:45 Condition: good 09:45 Discharge instructions given to patient, Instructed on follow up and referral plans. the need for transfer, Demonstrated understanding of instructions. 09:45 Transferred [facility] . iw 09:45 Patient left the ED. iw Signatures: Dispatcher [employer] Homero Mauro MD MD cha Williams, Irene, RN RN Jovanny Cantor RN RN mg2 Sandi Scott Raymond RN RN rr5
--- NOTE | 2020-03-19 05:25 | EDPHYS ---
Physician Documentation [facility] Name: Zenaida Goss Age: 59 yrs Sex: Female : 1960 Arrival Date: 03/19/2020 Time: 05:04 Bed 27 Private MD: ED Physician Homero Terrell HPI: 03/19 05:20 This 59 yrs old Female presents to ER via Ambulatory with complaints of vicente Abdominal Pain. 05:20 The patient presents with abdominal pain abdominal distention. Onset: The vicente symptoms/episode began/occurred 3 day(s) ago. The symptoms radiate to back. Associated signs and symptoms: Pertinent positives: nausea and vomiting. The symptoms are described as constant, crampy. Modifying factors: The symptoms are alleviated by nothing, the symptoms are aggravated by nothing. Severity of pain: At its worst the pain was moderate in the emergency department the pain is unchanged. The patient has not experienced similar symptoms in the past. Historical: - Allergies: 05:19 Morphine (Anaphylaxis); mg2 - Home Meds: 05:19 Lactulose Oral [Active]; mg2 - PMHx: 05:19 Anemia; breast cancer; Cirrhosis; fatty liver; Pancreatitis; varices; mg2 - PSHx: 05:19 Appendectomy; Cholecystectomy; Hysterectomy; Lumpectomy; mg2 - Immunization history:: Flu vaccine status is unknown. - Social history:: Smoking status: Patient denies any tobacco usage or history of. Patient/guardian denies using alcohol, street drugs, IV drugs. - Family history:: not pertinent. ROS: 05:20 Constitutional: Negative for fever, chills, and weight loss, Eyes: Negative for injury, vicente pain, redness, and discharge, ENT: Negative for injury, pain, and discharge, Neck: Negative for injury, pain, and swelling, Cardiovascular: Negative for chest pain, palpitations, and edema, Respiratory: Negative for shortness of breath, cough, wheezing, and pleuritic chest pain, Back: Negative for injury and pain, : Negative for injury, bleeding, discharge, and swelling, MS/Extremity: Negative for injury and deformity, Skin: Negative for injury, rash, and discoloration, Neuro: Negative for headache, weakness, numbness, tingling, and seizure, Psych: Negative for depression, anxiety, suicide ideation, homicidal ideation, and hallucinations, Allergy/Immunology: Negative for hives, rash, and allergies, Endocrine: Negative for neck swelling, polydipsia, polyuria, polyphagia, and marked weight changes, Hematologic/Lymphatic: Negative for swollen nodes, abnormal bleeding, and unusual bruising. 05:20 Abdomen/GI: Positive for abdominal pain, nausea and vomiting, of the epigastric area, right upper quadrant and left upper quadrant. Exam: 05:20 Constitutional: This is a well developed, well nourished patient who is awake, alert, vicente and in no acute distress. Head/Face: Normocephalic, atraumatic. Eyes: Pupils equal round and reactive to light, extra-ocular motions intact. Lids and lashes normal. Conjunctiva and sclera are non-icteric and not injected. Cornea within normal limits. Periorbital areas with no swelling, redness, or edema. ENT: Nares patent. No nasal discharge, no septal abnormalities noted. Tympanic membranes are normal and external auditory canals are clear. Oropharynx with no redness, swelling, or masses, exudates, or evidence of obstruction, uvula midline. Mucous membranes moist. Neck: Trachea midline, no thyromegaly or masses palpated, and no cervical lymphadenopathy. Supple, full range of motion without nuchal rigidity, or vertebral point tenderness. No Meningismus. Chest/axilla: Normal chest wall appearance and motion. Nontender with no deformity. No lesions are appreciated. Cardiovascular: Regular rate and rhythm with a normal S1 and S2. No gallops, murmurs, or rubs. Normal PMI, no JVD. No pulse deficits. Respiratory: Lungs have equal breath sounds bilaterally, clear to auscultation and percussion. No rales, rhonchi or wheezes noted. No increased work of breathing, no retractions or nasal flaring. Back: No spinal tenderness. No costovertebral tenderness. Full range of motion. Female : Normal external genitalia. Skin: Warm, dry with normal turgor. Normal color with no rashes, no lesions, and no evidence of cellulitis. MS/ Extremity: Pulses equal, no cyanosis. Neurovascular intact. Full, normal range of motion. Neuro: Awake and alert, GCS 15, oriented to person, place, time, and situation. Cranial nerves II-XII grossly intact. Motor strength 5/5 in all extremities. Sensory grossly intact. Cerebellar exam normal. Normal gait. Psych: Awake, alert, with orientation to person, place and time. Behavior, mood, and affect are within normal limits. 05:20 Abdomen/GI: Inspection: distension, Bowel sounds: normal, Palpation: moderate abdominal tenderness, in the epigastric area, right upper quadrant and left upper quadrant, Liver: no appreciated palpable abnormalities, Hernia: not appreciated. 06:02 ECG was reviewed by the Attending Physician. [facility] Vital Signs: 05:16 BP 122 / 65; Pulse 84; Resp 18; Temp 98.1; Pulse Ox 100% on R/A; Weight 117.93 kg; mg2 Height 5 ft. 4 in. (162.56 cm); Pain 10/10; 05:16 Body Mass Index 44.63 (117.93 kg, 162.56 cm) mg2 MDM: 05:07 Patient medically screened. vicente 05:22 Differential diagnosis: diverticulitis, gastritis, non-specific abd pain, pancreatitis, vicente Peptic Ulcer Disease, Pyelonephritis, urinary tract infection. Data reviewed: vital signs, nurses notes, lab test result(s), EKG, radiologic studies. Data interpreted: vehicle monitor technician: rate is 84 beats/min, rhythm is regular. Test interpretation: by ED physician or midlevel provider: ECG, plain radiologic studies. Counseling: I had a detailed discussion with the patient and/or guardian regarding: the historical points, exam findings, and any diagnostic results supporting the discharge/admit diagnosis, lab results, radiology results, the need to transfer to another facility, for higher level of care, [facility] does not immediately have the required specialist. 03/19 05:19 Order name: Basic Metabolic Panel; Complete Time: 07:58 [facility] 03/19 05:19 Order name: CBC with Diff [facility] 03/19 05:19 Order name: LFT's [facility] 03/19 05:19 Order name: Magnesium [facility] 03/19 05:19 Order name: NT PRO-BNP [facility] 03/19 05:19 Order name: PT-INR [facility] 03/19 05:19 Order name: Troponin (emerg Dept Use Only) [facility] 03/19 05:19 Order name: Lipase [facility] 03/19 05:23 Order name: Type And Screen [facility] 03/19 06:09 Order name: Urine Dipstick--Ancillary (enter results) tt3 03/19 06:53 Order name: Troponin (Emerg Dept Use Only); Complete Time: 07:09 EDMS 03/19 06:53 Order name: Lipase; Complete Time: 07:09 EDMS 03/19 07:16 Order name: Protime (+INR); Complete Time: 07:24 EDMS 12 07:29 Order name: Type and Screen EDMS 03/19 05:19 Order name: XRAY Chest (1 view) [facility] 03/19 05:19 Order name: EKG; Complete Time: 05:20 [facility] 03/19 05:19 Order name: CT Abd/Pelvis - IV Contrast Only; Complete Time: 08:27 [facility] 03/19 07:49 Order name: Liver (Hepatic) Function; Complete Time: 07:58 EDMS 03/19 07:49 Order name: NT PRO-BNP; Complete Time: 07:58 EDMS 03/19 07:49 Order name: Magnesium; Complete Time: 07:58 EDMS 03/19 08:16 Order name: CBC with Automated Diff; Complete Time: 08:27 EDMS 03/19 05:19 Order name: Cardiac monitoring; Complete Time: 06:06 [facility] 03/19 05:19 Order name: EKG - Nurse/Tech; Complete Time: 06:06 [facility] 03/19 05:19 Order name: IV Saline Lock; Complete Time: 06:06 [facility] 03/19 05:19 Order name: Labs collected and sent; Complete Time: 06:06 [facility] 03/19 05:19 Order name: O2 Per Protocol; Complete Time: 06:06 [facility] 03/19 05:19 Order name: O2 Sat Monitoring; Complete Time: 06:06 [facility] 03/19 05:19 Order name: IV Saline Lock - Large Bore; Complete Time: 06:04 [facility] EC:02 Rate is 81 beats/min. Rhythm is regular. QRS [place] is Normal. ME interval is normal. QRS vicente interval is normal. QT interval is normal. No Q waves. T waves are Normal. No ST changes noted. Clinical impression: NSR w/ Non-specific ST/T Changes and No evidence of ischemia. Interpreted by me. Reviewed by me. Administered Medications: 05:35 Drug: NS 0.9% 1000 ml Route: IV; Rate: 1 bolus; Site: left forearm; mg2 05:35 Drug: NS 0.9% 1000 ml Route: IV; Rate: 1 bolus; Site: right antecubital; mg2 05:36 Drug: Pepcid 20 mg Route: IVP; Site: left forearm; mg2 06:33 Follow up: Response: No adverse reaction mg2 05:36 Drug: Zofran (Ondansetron) 4 mg Route: IVP; Site: left forearm; mg2 07:06 Follow up: Response: No adverse reaction mg2 05:40 Drug: fentaNYL (PF) 25 mcg Route: IVP; Site: left forearm; mg2 06:33 Follow up: Response: No adverse reaction mg2 06:32 Drug: fentaNYL (PF) 25 mcg Route: IVP; Site: left forearm; mg2 07:07 Follow up: Response: No adverse reaction mg2 06:33 Drug: Zofran (Ondansetron) 4 mg Route: IVP; Site: left hand; mg2 07:07 Follow up: Response: No adverse reaction mg2 09:39 Drug: NS 0.9% 1000 ml Route: IV; Rate: 125 ml/hr; Site: left hand; iw Disposition: 03/19/20 05:25 Transfer ordered to [facility]. Diagnosis are Abdominal tenderness, Acute pancreatitis, Obesity, unspecified, Unspecified cirrhosis of liver - ANAYA. - Reason for transfer: Higher level of care. - Accepting physician is to [facility]. - Condition is Fair. - Problem is new. - Symptoms have improved. Signatures: Dispatcher [employer] Homero Mauro MD MD cha Williams, Irene, RN RN iw [place], Michele, RN RN mg2 Corrections: (The following items were deleted from the chart) 08:28 05:25 03/19/2020 05:25 Transfer ordered to [facility]. Diagnosis is Abdominal vicente tenderness; Acute pancreatitis; Obesity, unspecified. Reason for transfer: Higher level of care. Accepting physician is to [facility]. Condition is Fair. Problem is new. Symptoms have improved. [facility] 09:45 08:28 03/19/2020 05:25 Transfer ordered to [facility]. Diagnosis is Abdominal iw tenderness; Acute pancreatitis; Obesity, unspecified; Unspecified cirrhosis of liver - ANAYA. Reason for transfer: Higher level of care. Accepting physician is to [facility]. Condition is Fair. Problem is new. Symptoms have improved. [facility]
[2020-03-19] MEDS ORDERED: NA CHLORIDE 0.9% 2,000 ML ONE (05:43)
[2020-03-19] MEDS ORDERED: FAMOTIDINE 20 MG/2 ML VIAL IV ONE (05:43)
[2020-03-19] MEDS ORDERED: ONDANSETRON 4 MG/2 ML VIAL ONE ×2 (05:43→06:40)
[2020-03-19] MEDS ORDERED: FENTANYL CITR 100 MCG/2 ML ONE (06:06)
[2020-03-19 06:33] LABS: Protime INR 1.13
[2020-03-19 06:46] LABS: Absolute Lymphocytes (CBC) 0.5 K/uL (0.7-4.9); Basophils % 0.7 % (0-1.3); Hematocrit 33.5 % (36.0-45.0); Lymphocytes % 20.4 % (15.3-44.8); MPV 8.1 fL (7.6-11.3); RBC Red Blood Cell Count 3.75 M/uL (3.86-4.86)
[2020-03-19 06:53] LABS: Lipase 341 U/L (73-393); Troponin (Emerg Dept Use Only) < 0.02 ng/mL (0.0-0.045)
--- NOTE | 2020-03-19 07:09 | EKG ---
Test Date: 2020-03-19 Test Time: 05:54:52 Forensic Computer Examiner: MEASUREMENT RESULTS: Intervals: Rate: 81 VA: 152 QRSD: 104 QT: 404 QTc: 469 [place]: P: 50 VA: 152 QRS: 83 T: 37 INTERPRETIVE STATEMENTS: Normal sinus rhythm Normal ECG Compared to ECG 04/24/2019 23:41:38 Prolonged QT interval no longer present Electronically Signed On 03-19-20 07:08:54 MATERIALS ENGINEER by Miguel Crenshaw
[2020-03-19 07:49] LABS: ALT/SGPT 44 U/L (12-78); AST/SGOT 37 U/L (15-37); Alkaline Phosphatase 157 U/L (45-117); BUN Blood Urea Nitrogen 8 mg/dL (7-18); Bicarbonate 28 mmol/L (21-32); Bilirubin Direct 0.3 mg/dL (0-0.2); Glucose Level 103 mg/dL (74-106); NT PRO-BNP 47 pg/mL (<125); Protein, Total 6.7 g/dL (6.4-8.2); Sodium Level 143 mmol/L (136-145)
--- NOTE | 2020-03-19 08:18 | RAD REPORT ---
EXAM DESCRIPTION: CT - Abdomen Pelvis W Contrast - 03/19/2020 7:55 am CLINICAL HISTORY: ABD PAIN COMPARISON: Abdomen Pelvis W Contrast dated 11/29/2019 TECHNIQUE: Biphasic, helical CT imaging of the abdomen and pelvis was performed following 100 ml non -ionic IV contrast. No oral contrast administered. All CT scans are performed using dose optimization technique as appropriate and may include automated exposure control or mA/KV adjustment according to patient size. FINDINGS: No suspicious findings in the lung bases. No focal liver lesion identified. There is a nodular contour to the liver capsule similar to prior im aging. No portal vein thrombus. Cholecystectomy clips are present. No biliary tree dilatation. Spleno megaly to 16 cm similar to comparison. No focal lesion. Varices are noted in the upper abdomen witho ut thrombosis. No solid or cystic mass within or adjacent to the pancreas. There is mild stranding in the peripancre atic fat near the head of the pancreas extending along the right anterior pararenal fascia. Minimal a mount of free fluid is seen within the peritoneal cavity. These findings are consistent with the prov ided history of recent hospitalization for pancreatitis. Symmetric renal function is seen with no hydronephrosis or suspicious renal mass. No pyelonephritis o r acute parenchymal process. No bladder abnormalities. No adrenal abnormalities. Uterus is absent. Ov marcela are absent or atrophic. No ovarian or adnexal suspicious finding. No dilated bowel loops or bowel wall thickening. Fluid in stranding are present near the tip of the c ecum. This is believed be part of the pancreatitis process. By history the appendix is surgically abs ent. No pneumatosis or free air. No hernia, mass or bulky lymphadenopathy. No suspicious bony findings. IMPRESSION: Mild pancreatitis findings as detailed. No pseudocyst, abscess or other pancreatitis rel ated complication. Cirrhotic liver changes with no focal liver lesion. Numerous varices are seen in the upper abdomen al delio with splenomegaly. The collective cirrhosis findings are not significantly different from November.
[2020-03-19 08:23] LABS: Blood Morphology Comment NOT SEEN (NOT SEEN)
[2020-03-19 08:24] LABS: Platelet Estimate DECR
--- NOTE | 2020-03-19 09:11 | RAD REPORT ---
EXAM DESCRIPTION: RAD - Chest Single View - 03/19/2020 5:37 am CLINICAL HISTORY: ABDOMINAL DISTENTION, recent hospitalization for pancreatitis, abdominal pain COMPARISON: November 21 TECHNIQUE: AP portable chest image was obtained 03/19/2020 5:37 am . FINDINGS: Lung volumes are low which accentuates interstitial opacification. Minimal alveolar opacit ies are present which could be mild alveolar edema or atelectasis. Significant failure or volume over load not suspected. Heart and vasculature are normal. No measurable pleural effusion and no pneumotho rax. No acute bony abnormality seen. No acute aortic findings suspected. IMPRESSION: Shallow inspiration film showing patchy alveolar opacification that could be infiltrate, edema or atelectasis.
[2020-03-19] MEDS ORDERED: NA CHLORIDE 0.9% 1,000 ML ONE (09:34)
[2020-03-19 15:17] LABS: Urine Blood NEGATIVE (NEG); Urine Glucose NEGATIVE (NEG); Urine Protein NEGATIVE (NEG); Urine Specific Gravity 1.025 (1.005-1.030); Urine pH 8.5 (5.0-7.0)
== END 2020-03-19 09:45 | disposition short-term general hospital (02) ==
LOC: ER 05:02
DX: K85.90 Acute pancreatitis without necrosis or infection, unspecified (principal); K75.81 Nonalcoholic steatohepatitis (NASH); E66.9 Obesity, unspecified; Z85.3 Personal history of malignant neoplasm of breast; Z88.5 Allergy status to narcotic agent
CPT/HCPCS: 93005; 85025; 80048; 36415; 86900; 83735; 86850; 85610; 86901; 80076; 81003; 84484; 83690; 83880; 74177; 71045; Q9967; J3010; J7030 ×2; J2405 ×2; 99285

== ENCOUNTER 2020-04-02 21:55 | Emergency (ER) | payer OTHER ==
--- OUTSIDE RECORDS SUMMARY | 2020-04-02 21:57 | XMS REPORT | Clinical Summary ---
:1960 [address] [facility] [place], [place] Address [address] [place] [address] Care Team Providers Name Role Phone Usman [...] 10/01/2021 10/01/2018, 08/07/2016 Results Not on fileafter 04/02/2019 Advance Directives For more information, please contact: [phone] Code Status Date Activated Date Inactivated Comments Full Code 09/30/2018 8:45 PM 10/03/2018 7:37 PM This code status was determined by: Patient
--- OUTSIDE RECORDS SUMMARY | 2020-04-02 21:57 | XMS REPORT | Clinical Summary ---
:1960 Author Organization [facility] Address [address] [place] [address] Care Team Providers Name Role Phone MD Ruth Primary Care Provider Allergies Active Allergy Reactions Severity Noted Date Comments Morphine Other (See Comments) Medium 03/14/2020 Tightne ss of throat Medications Medication Sig Dispensed Refills Start Date End Date Status lactulose 10 Take 20 g by 0 Acti ve gram/15 mL (15 mouth daily. mL) solution pancrelipase, Take 1 capsule 90 capsule 1 03/23/2020 Active lipase-protease- by mouth 3 1 amylase, (three) times (CREOND) a day with 12,000-38,000 meals for 30 -60,000 unit days. capsule,delayed release(DR/EC) capsule ibuprofen Take 400 mg by 0 Disco ntinued (ADVIL) 200 MG mouth once. 0 (St op Taking at tablet Discharge) HYDROcodone-acet Take 1 tablet 10 tablet 0 03/18/2020 03/25/20 2 aminophen by mouth every 0 (NORCO) 5-325 mg 6 (six) hours per as needed for tabletIndication moderate pain s: acute pain for up to 7 days .acute pain. Max Daily Amount: 4 tablets Active Problems Problem Noted Date Pancreatitis due to common bile duct stone 03/19/2020 Disorder of liver 03/14/2020 Acute pancreatitis without infection or necrosis 03/14 Encounters Date Type Specialty Care Team Description 03/28/2020 Telephone General Internal Justus Brewer Medicine RN 03/19/2020 - Hospital Encounter General Internal Jeremy Bullock 03/23/2020 Amarilys Desouza MD 03/19/2020 Patient Outreach [facility] Emi Ahumada RN 03/14/2020 - Hospital Encounter General Internal Nakia Cruz MD 03/18/2020 Medicine Jeremy Bullock MD 03/14/2020 Travel after 04/02/2019 Surgical History Surgery Date Site/Laterality Comments HYSTERECTOMY LUMPECTOMY, BREAST Right APPENDECTOMY CHOLECYSTECTOMY TUBAL LIGATION TONSILLECTOMY Medical History Medical History Date Comments Cirrhosis (HCC) Cancer (HCC) Breast CA Social History Tobacco Use Types Packs/Day Years Used Date Never Smoker Smokeless Tobacco: Never Used Alcohol Use Drinks/Week oz/Week Comments Never Alcohol Habits Answer Date Recorded How often do you have a drink containing alcohol? Never 03/19/2020 How many drinks containing alcohol do you have on a typical Not asked day when you are drinking? How often do you have six or more drinks on one occasion? No t asked Sex Assigned at Date Recorded Not on file Job Start Date Occupation Industry Not on file Not on file Not on file COVID-19 Exposure Response Date Recorded In the last month, have you been in contact with No / Unsure 03/14/2020 2:51 PM [employer] someone who was confirmed or suspected to have Coronavirus / COVID-19? Last Filed Vital Signs Vital Sign Reading Time Taken Comments Blood Pressure 136/64 03/23/2020 7:35 AM [employer] Pulse 77 03/23/2020 7:35 AM [employer] Temperature 36 C (96.8 F) 03/23/2020 7:35 AM [employer] Respiratory Rate 20 03/23/2020 7:35 AM [employer] Oxygen Saturation 96% 03/23/2020 7:35 AM [employer] Inhaled Oxygen Concentration - - Weight 122 kg (269 lb 3 oz) 03/23/2020 6:00 AM [employer] Height 162.6 cm (5' 4") 03/14/2020 4:30 PM [employer] Body Mass Index 46.21 03/14/2020 4:30 PM [employer] Plan of Treatment Health Maintenance Due Date Last Done Comments COVID-19 VACCINE (#1) 1977 CERVICAL CANCER SCREENING 1982 BREAST CANCER SCREENING 2011 COLONOSCOPY SCREENING 2011 SHINGLES VACCINES (#1) 2011 INFLUENZA VACCINE 11/10/2019 01/21/2017 Procedures Procedure Name Priority Date/Time Associated Comments Diagnosis SMEAR REVIEW Routine 03/22/2020 5:15 Results for this AM [employer] procedure are i n the results section. ESTIMATED GFR Routine 03/22/2020 5:15 Results fo r this AM [employer] procedure are i n the results section. AMYLASE LEVEL Routine 03/22/2020 5:15 Results fo r this AM [employer] procedure are i n the results section. LIPASE LEVEL Routine 03/22/2020 5:15 Results for this AM [employer] procedure are i n the results section. PROTHROMBIN TIME WITH Routine 03/22/2020 5:15 Re sults for this INR AM [employer] procedure are i n the results section. PHOSPHORUS LEVEL Routine 03/22/2020 5:15 Results for this AM [employer] procedure are i n the results section. HEPATIC FUNCTION PANEL Routine 03/22/2020 5:15 R esults for this AM [employer] procedure are i n the results section. MAGNESIUM LEVEL Routine 03/22/2020 5:15 Results for this AM [employer] procedure are i n the results section. HC COMPLETE BLD COUNT Routine 03/22/2020 5:15 Re sults for this W/AUTO DIFF AM [employer] procedure are i n the results section. BASIC METABOLIC PANEL Routine 03/22/2020 5:15 Re sults for this AM [employer] procedure are i n the results section. MANUAL DIFFERENTIAL Routine 03/21/2020 4:43 Resu lts for this AM [employer] procedure are i n the results section. ESTIMATED GFR Routine 03/21/2020 4:43 Results fo r this AM [employer] procedure are i n the results section. AMYLASE LEVEL Routine 03/21/2020 4:43 Results fo r this AM [employer] procedure are i n the results section. LIPASE LEVEL Routine 03/21/2020 4:43 Results for this AM [employer] procedure are i n the results section. PROTHROMBIN TIME WITH Routine 03/21/2020 4:43 Re sults for this INR AM [employer] procedure are i n the results section. PHOSPHORUS LEVEL Routine 03/21/2020 4:43 Results for this AM [employer] procedure are i n the results section. HEPATIC FUNCTION PANEL Routine 03/21/2020 4:43 R esults for this AM [employer] procedure are i n the results section. MAGNESIUM LEVEL Routine 03/21/2020 4:43 Results for this AM [employer] procedure are i n the results section. CBC WITH PLATELET AND Routine 03/21/2020 4:43 Re sults for this DIFFERENTIAL AM [employer] procedure are i n the results section. BASIC METABOLIC PANEL Routine 03/21/2020 4:43 Re sults for this AM [employer] procedure are i n the results section. SMEAR REVIEW Routine 03/20/2020 5:20 Results for this AM [employer] procedure are i n the results section. ESTIMATED GFR Routine 03/20/2020 5:20 Results fo r this AM [employer] procedure are i n the results section. AMYLASE LEVEL Routine 03/20/2020 5:20 Results fo r this AM [employer] procedure are i n the results section. LIPASE LEVEL Routine 03/20/2020 5:20 Results for this AM [employer] procedure are i n the results section. PROTHROMBIN TIME WITH Routine 03/20/2020 5:20 Re sults for this INR AM [employer] procedure are i n the results section. PHOSPHORUS LEVEL Routine 03/20/2020 5:20 Results for this AM [employer] procedure are i n the results section. HEPATIC FUNCTION PANEL Routine 03/20/2020 5:20 R esults for this AM [employer] procedure are i n the results section. MAGNESIUM LEVEL Routine 03/20/2020 5:20 Results for this AM [employer] procedure are i n the results section. HC COMPLETE BLD COUNT Routine 03/20/2020 5:20 Re sults for this W/AUTO DIFF AM [employer] procedure are i n the results section. BASIC METABOLIC PANEL Routine 03/20/2020 5:20 Re sults for this AM [employer] procedure are i n the results section. URINALYSIS, AUTOMATED Routine 03/19/2020 12:52 Re sults for this WITH MICROSCOPY PM [employer] procedure ar e in the results section. COVID-19 QUALITATIVE STAT 03/19/2020 11:58 Res ults for this PCR AM [employer] procedure are i n the results section. SMEAR REVIEW Routine 03/19/2020 11:55 Results for this AM [employer] procedure are i n the results section. ESTIMATED GFR Routine 03/19/2020 11:55 Results fo r this AM [employer] procedure are i n the results section. LIPASE LEVEL Routine 03/19/2020 11:55 Results for this AM [employer] procedure are i n the results section. AMYLASE LEVEL Routine 03/19/2020 11:55 Results fo r this AM [employer] procedure are i n the results section. PROTHROMBIN TIME WITH Routine 03/19/2020 11:55 Re sults for this INR AM [employer] procedure are i n the results section. PHOSPHORUS LEVEL Routine 03/19/2020 11:55 Results for this AM [employer] procedure are i n the results section. MAGNESIUM LEVEL Routine 03/19/2020 11:55 Results for this AM [employer] procedure are i n the results section. HEPATIC FUNCTION PANEL Routine 03/19/2020 11:55 R esults for this AM [employer] procedure are i n the results section. HC COMPLETE BLD COUNT Routine 03/19/2020 11:55 Re sults for this W/AUTO DIFF AM [employer] procedure are i n the results section. BASIC METABOLIC PANEL Routine 03/19/2020 11:55 Re sults for this AM [employer] procedure are i n the results section. SMEAR REVIEW Routine 03/18/2020 4:18 Results for this AM [employer] procedure are i n the results section. ESTIMATED GFR Routine 03/18/2020 4:18 Results fo r this AM [employer] procedure are i n the results section. ALPHA FETOPROTEIN Routine 03/18/2020 4:18 Result s for this AM [employer] procedure are i n the results section. AMYLASE LEVEL Routine 03/18/2020 4:18 Results fo r this AM [employer] procedure are i n the results section. LIPASE LEVEL Routine 03/18/2020 4:18 Results for this AM [employer] procedure are i n the results section. PROTHROMBIN TIME WITH Routine 03/18/2020 4:18 Re sults for this INR AM [employer] procedure are i n the results section. PHOSPHORUS LEVEL Routine 03/18/2020 4:18 Results for this AM [employer] procedure are i n the results section. HEPATIC FUNCTION PANEL Routine 03/18/2020 4:18 R esults for this AM [employer] procedure are i n the results section. MAGNESIUM LEVEL Routine 03/18/2020 4:18 Results for this AM [employer] procedure are i n the results section. HC COMPLETE BLD COUNT Routine 03/18/2020 4:18 Re sults for this W/AUTO DIFF AM [employer] procedure are i n the results section. BASIC METABOLIC PANEL Routine 03/18/2020 4:18 Re sults for this AM [employer] procedure are i n the results section. SMEAR REVIEW Routine 03/17/2020 4:15 Results for this AM [employer] procedure are i n the results section. ESTIMATED GFR Routine 03/17/2020 4:15 Results fo r this AM [employer] procedure are i n the results section. LDH Routine 03/17/2020 4:15 Results for this AM [employer] procedure are i n the results section. URIC ACID LEVEL Routine 03/17/2020 4:15 Results for this AM [employer] procedure are i n the results section. PROTHROMBIN TIME WITH Routine 03/17/2020 4:15 Re sults for this INR AM [employer] procedure are i n the results section. PHOSPHORUS LEVEL Routine 03/17/2020 4:15 Results for this AM [employer] procedure are i n the results section. MAGNESIUM LEVEL Routine 03/17/2020 4:15 Results for this AM [employer] procedure are i n the results section. COMPREHENSIVE Routine 03/17/2020 4:15 Results fo r this METABOLIC PANEL AM [employer] procedure ar e in the results section. CBC WITH PLATELET AND Routine 03/17/2020 4:15 Re sults for this DIFFERENTIAL AM [employer] procedure are i n the results section. SMEAR REVIEW Routine 03/16/2020 4:32 Results for this AM [employer] procedure are i n the results section. ESTIMATED GFR Routine 03/16/2020 4:32 Results fo r this AM [employer] procedure are i n the results section. LDH Routine 03/16/2020 4:32 Results for this AM [employer] procedure are i n the results section. URIC ACID LEVEL Routine 03/16/2020 4:32 Results for this AM [employer] procedure are i n the results section. PROTHROMBIN TIME WITH Routine 03/16/2020 4:32 Re sults for this INR AM [employer] procedure are i n the results section. PHOSPHORUS LEVEL Routine 03/16/2020 4:32 Results for this AM [employer] procedure are i n the results section. MAGNESIUM LEVEL Routine 03/16/2020 4:32 Results for this AM [employer] procedure are i n the results section. COMPREHENSIVE Routine 03/16/2020 4:32 Results fo r this METABOLIC PANEL AM [employer] procedure ar e in the results section. CBC WITH PLATELET AND Routine 03/16/2020 4:32 Re sults for this DIFFERENTIAL AM [employer] procedure are i n the results section. SMEAR REVIEW Routine 03/15/2020 4:45 Results for this AM [employer] procedure are i n the results section. HEMOGLOBIN A1C Routine 03/15/2020 4:45 Results f or this AM [employer] procedure are i n the results section. PROTHROMBIN TIME WITH Routine 03/15/2020 4:45 Re sults for this INR AM [employer] procedure are i n the results section. CBC WITH PLATELET AND Routine 03/15/2020 4:45 Re sults for this DIFFERENTIAL AM [employer] procedure are i n the results section. BILIRUBIN DIRECT Routine 03/15/2020 4:00 Results for this AM [employer] procedure are i n the results section. ESTIMATED GFR Routine 03/15/2020 4:00 Results fo r this AM [employer] procedure are i n the results section. LDH Routine 03/15/2020 4:00 Results for this AM [employer] procedure are i n the results section. URIC ACID LEVEL Routine 03/15/2020 4:00 Results for this AM [employer] procedure are i n the results section. T4 Routine 03/15/2020 4:00 Results for this AM [employer] procedure are i n the results section. THYROID STIMULATING Routine 03/15/2020 4:00 Resu lts for this HORMONE AM [employer] procedure are i n the results section. PHOSPHORUS LEVEL Routine 03/15/2020 4:00 Results for this AM [employer] procedure are i n the results section. MAGNESIUM LEVEL Routine 03/15/2020 4:00 Results for this AM [employer] procedure are i n the results section. COMPREHENSIVE Routine 03/15/2020 4:00 Results fo r this METABOLIC PANEL AM [employer] procedure ar e in the results section. CT ABDOMEN WWO Routine 03/14/2020 9:04 Results f or this CONTRAST PELVIS W PM [employer] procedure are in CONTRAST the results section. SMEAR REVIEW Routine 03/14/2020 5:20 Results for this PM [employer] procedure are i n the results section. ESTIMATED GFR Routine 03/14/2020 5:20 Results fo r this PM [employer] procedure are i n the results section. LACTIC ACID LEVEL Routine 03/14/2020 5:20 Result s for this PM [employer] procedure are i n the results section. PROTHROMBIN TIME WITH Routine 03/14/2020 5:20 Re sults for this INR PM [employer] procedure are i n the results section. PHOSPHORUS LEVEL Routine 03/14/2020 5:20 Results for this PM [employer] procedure are i n the results section. MAGNESIUM LEVEL Routine 03/14/2020 5:20 Results for this PM [employer] procedure are i n the results section. LIPASE LEVEL Routine 03/14/2020 5:20 Results for this PM [employer] procedure are i n the results section. HC COMPLETE BLD COUNT Routine 03/14/2020 5:20 Re sults for this W/AUTO DIFF PM [employer] procedure are i n the results section. COMPREHENSIVE Routine 03/14/2020 5:20 Results fo r this METABOLIC PANEL PM [employer] procedure ar e in the results section. COVID-19 QUALITATIVE Routine 03/14/2020 4:30 Res ults for this PCR PM [employer] procedure are i n the results section. after 04/02/2019 Results Smear review (03/22/2020 5:15 AM [employer])Only the most recent of8 resultswithin the time period is included. Platelet slide review Mkd decreased (A) [facility] Anisocytosis Moderate [facility] Polychromasia Moderate [facility] Ovalocytes Moderate [facility] Specimen Plasma Performing Organization Address [facility] Phon e Number [facility] DEPARTMENT OF PATHOLOGY AND [address] [place] [address] [phone] [address] Estimated GFR (03/22/2020 5:15 AM [employer])Only the most recent of9 resultswithin the time period is included. Pathologist [facility] Estimated GFR >=90 mL/min/1.73 [facility] Comment: HOSPITAL Catergory Units Interpretation G1 >=90 Normal [...] in 2014. Specimen Plasma Performing Organization Address [facility] Phon e Number [facility] DEPARTMENT OF PATHOLOGY AND [address] [place] [phone] Prothrombin time with INR (03/22/2020 5:15 AM [employer])Only the most recent of9 resultswithin the time period is included. [facility] Prothrombin time 16.3 (H) 11.5 - 14.5 [facility] INR 1.3 [facility] Comment: FAITH The International Normalized Ratio (INR) is a therapeu the medical center HOSPITAL monitoring tool for patients who are stable on oral anticoagulant therapy. An INR of 2.0-3.0 is suggested for deep vein thrombosis/pulmonary embolism. Specimen Blood Performing Organization Address City/[facility] Phon e Number [facility] DEPARTMENT OF PATHOLOGY AND [address] [place] [address] [address] CBC with platelet and differential (03/22/2020 5:15 AM [employer])Only the most recent of9 resultswithin the time period is included. Pathologist [facility] WBC 1.89 (L) 4.50 - 11.00 [facility] RBC 3.21 (L) 4.20 - 5.50 [facility] m/uL HOSPITAL HGB 9.3 (L) 12.0 - 16.0 [facility] g/dL HOSPITAL HCT 29.9 (L) 37.0 - 47.0 % [facility] MCV 93.1 82.0 - 100.0 [facility] MCH 29.0 27.0 - 34.0 pg [facility] MCHC 31.1 31.0 - 37.0 [facility] g/dL [facility] RDW - SD 52.6 37.0 - 55.0 fL [facility] MPV 11.3 8.8 - 13.2 fL [facility] Platelet count 45 (L) 150 - 400 k/uL [facility] Nucleated RBC 0.00 /100 WBC [facility] Neutrophils 57.7 39.0 - 69.0 % [facility] Lymphocytes 23.3 (L) 25.0 - 45.0 % [facility] Monocytes 14.8 (H) 0.0 - 10.0 % [facility] Eosinophils 3.7 0.0 - 5.0 % [facility] Basophils 0.5 0.0 - 1.0 % [facility] Immature granulocytes 0.0Comment: 0.0 - 1.0 % [facility] "[facility] granulocytes" (promyelocytes , myelocytes, metamyelocytes ) Specimen Plasma Performing Organization Address City/[facility] Phon e Number [facility] DEPARTMENT OF PATHOLOGY AND [address] [place] [address] [address] Phosphorus level (03/22/2020 5:15 AM [employer])Only the most recent of9 resultswithin the time period is included. Pathologist Sig nature Phosphorus 2.6 2.4 - 4.5 mg/dL [facility] L Specimen Plasma Performing Organization Address City/[facility]/ZIP [facility] Phon e Number [facility] DEPARTMENT OF PATHOLOGY AND [address] [place] [address] [address] Magnesium level (03/22/2020 5:15 AM [employer])Only the most recent of9 resultswithin the time period is included. Pathologist Sig nature Magnesium 1.9 1.6 - 2.6 mg/dL [facility] L Specimen Plasma Performing Organization Address [facility] Phon e Number [facility] DEPARTMENT OF PATHOLOGY AND [address] [place] [address] [phone] [address] Lipase level (03/22/2020 5:15 AM [employer])Only the most recent of6 resultswithin the time period is included. Pathologist Sig nature Lipase 94 (H) 13 - 60 U/L [facility] Specimen Plasma Performing Organization Address [facility] Phon e Number [facility] DEPARTMENT OF PATHOLOGY AND [address] [place] [address] [phone] [address] Amylase level (03/22/2020 5:15 AM [employer])Only the most recent of5 resultswithin the time period is included. Pathologist Sig nature Amylase 59 28 - 100 U/L [facility] Specimen Plasma Performing Organization Address [facility] Phon e Number [facility] DEPARTMENT OF PATHOLOGY AND [address] [place] [address] [phone] [address] Hepatic function panel (03/22/2020 5:15 AM [employer])Only the most recent of5 results within the time period is included. Albumin 2.7 (L) 3.5 - 5.0 [facility] g/dL [facility] Total bilirubin 1.1 0.0 - 1.2 [facility] mg/dL [facility] Bilirubin direct 0.4 (H) 0.0 - 0.3 [facility] mg/dL [facility] Alkaline phosphatase 114 (H) 35 - 104 U/L [facility] Protein 6.0 (L) 6.3 - 8.3 [facility] Comment: g/dL [facility] [place] 4.6-7.0 g/dL 1 week 4.4-7.6 g/dL 7 months-1year 5.1-7.3 g/dL 1-2 years 5.6-7.5 g/dL >3 years 6.0-8.0 g/dL 18-150 6.3-8.3 g/dL ALT 31 5 - 50 U/L [facility] AST 39 (H) 10 - 35 U/L [facility] Specimen Plasma Performing Organization Address City/[facility] Phon e Number [facility] DEPARTMENT OF PATHOLOGY AND [address] [place] [address] [phone] [phone] Basic metabolic panel (03/22/2020 5:15 AM [employer])Only the most recent of5 results within the time period is included. Pathologist Sig nature Sodium 139 135 - 148 mEq/L [facility] Potassium 3.9 3.5 - 5.0 mEq/L [facility] Chloride 106 98 - 112 mEq/L [facility] CO2 27 24 - 31 mEq/L [facility] Anion gap 6@ANIO (L) 7 - 15 mEq/L [facility] BUN 9 6 - 20 mg/dL [facility] Creatinine 0.54 0.50 - 0.90 mg/dL [facility] Glucose 145 (H) 65 - 99 mg/dL [facility] Calcium 8.2 (L) 8.3 - 10.2 mg/dL [facility] Specimen Plasma Performing Organization Address [facility] Phon e Number [facility] DEPARTMENT OF PATHOLOGY AND [address] [place] [address] [phone] [address] Manual differential (03/21/2020 4:43 AM [employer]) Manual differential PERFORMED [facility] Neutrophils 59.0 39.0 - 69.0 [facility] Lymphocytes 25.0 25.0 - 45.0 [facility] Monocytes 10.0 0.0 - 10.0 % [facility] Eosinophils 6.0 (H) 0.0 - 5.0 % [facility] Basophils 0.0 0.0 - 1.0 % [facility] Metamyelocytes 0 % [facility] Promyelocytes 0 % [facility] Platelet slide review Mkd decreased (A) [facility] Anisocytosis Moderate [facility] Polychromasia Moderate [facility] Ovalocytes Moderate [facility] Specimen Plasma Performing Organization Address [facility] Phon e Number [facility] DEPARTMENT OF PATHOLOGY AND [address] [place] [address] [phone] [address] Urinalysis, automated with microscopy (03/19/2020 12:52 PM [employer] WORK[employer]) Pathologist Sig nature Color, UA Straw [facility] Appearance, UA Clear [facility] Specific gravity, UA 1.015 1.001 - 1.035 [facility] pH, UA 8.0 5.0 - 8.5 [facility] Protein, UA Negative Negative [facility] Glucose, UA Negative Negative [facility] Ketones, UA Negative Negative [facility] [facility] Bilirubin, UA Negative Negative [facility] Blood, UA Negative Negative [facility] Nitrite, UA Negative Negative [facility] Urobilinogen, UA <2.0 <2.0 [facility] Leukocyte esterase, Negative Negative [facility] Epithelial cells, UA 2 /HPF [facility] WBC, UA 2 0 - 4 /HPF [facility] RBC, UA <1 0 - 5 /HPF [facility] Bacteria, UA None seen None seen [facility] Yeast, UA None seen [facility] Yeast with None seen [facility] pseudohyphae, [facility] Specimen Urine Performing Organization Address City/[facility] Phon e Number [facility] DEPARTMENT OF PATHOLOGY AND [address] [place] [address] 0 [place] [address] COVID-19 qualitative PCR (03/19/2020 11:58 AM WIND UP WORKER)Only the most recent of2 resultswithin the time period is included. Pathologist [facility] Interpretation Negative results do not prec lude 2019-nCoV infection and should not be used as the sole basis for treatment or other patient management decisions. Negative results must be combined with clinical observations, patient history, and epidemiological [facility] information. [facility] COVID-19 qualitative Not-Detected Not-Detecte [facility] PCR result d [facility] COVID-19 qualitative See link below for [facility] PCR PDF Lab FAITH ReportComment: Case HOSPITAL Number: [id number] Specimen Nasal swab Performing Organization Address City/[facility] Phon e Number [facility] DEPARTMENT OF PATHOLOGY AND [address] [place], [place] [phone] 0 [place] [phone] [facility] Alpha fetoprotein (03/18/2020 4:18 AM WIND UP WORKER) Alpha fetoprotein 5.3 0.0 - 8.3 [facility] Comment: ng/mL FAITH The Luz 8000 AFP immunoassay was used. HOSPITAL Results obtained with different assay methods or kits should not be used interchangeably and may be differen t. Specimen Serum Performing Organization Address City/[facility] Phon e Number [facility] DEPARTMENT OF PATHOLOGY AND [address] [place] [address] [phone] [address] Uric acid level (03/17/2020 4:15 AM WIND UP WORKER)Only the most recent of3 resultswithin the time period is included. Pathologist Sig nature Uric acid 4.2 2.4 - 5.7 mg/dL [facility] L Specimen Plasma Performing Organization Address City/[facility] Phon e Number [facility] DEPARTMENT OF PATHOLOGY AND [address] [place] [address] [phone] [address] LDH (03/17/2020 4:15 AM WIND UP WORKER)Only the most recent of3 resultswithin the time period is included. Pathologist Sig nature LDH 243 (H) 87 - 225 U/L [facility] Specimen Plasma Performing Organization Address [facility] Phon e Number [facility] DEPARTMENT OF PATHOLOGY AND [address] [place] [address] [address] Comprehensive metabolic panel (03/17/2020 4:15 AM WIND UP WORKER)Only the most recent of4 resultswithin the time period is included. Sodium 140 135 - 148 [facility] mEq/L [facility] Potassium 4.0 3.5 - 5.0 [facility] mEq/L [facility] Chloride 106 98 - 112 [facility] mEq/L [facility] CO2 27 24 - 31 mEq/L [facility] Anion gap 7@ANIO 7 - 15 mEq/L [facility] BUN 9 6 - 20 mg/dL [facility] Creatinine 0.63 0.50 - 0.90 [facility] mg/dL [facility] Glucose 122 (H) 65 - 99 mg/dL [facility] Calcium 8.1 (L) 8.3 - 10.2 [facility] mg/dL [facility] Protein 5.5 (L) 6.3 - 8.3 [facility] Comment: g/dL HOSPITAL - 4.6-7.0 g/dL 1 week 4.4-7.6 g/dL 7 months-1year 5.1-7.3 g/dL 1-2 years 5.6-7.5 g/dL >3 years 6.0-8.0 g/dL 18-150 6.3-8.3 g/dL Albumin 2.6 (L) 3.5 - 5.0 [facility] g/dL [facility] A/G ratio 0.9 0.7 - 3.8 [facility] Alkaline phosphatase 119 (H) 35 - 104 U/L [facility] AST 36 (H) 10 - 35 U/L [facility] ALT 37 5 - 50 U/L [facility] Total bilirubin 1.0 0.0 - 1.2 [facility] mg/dL HOSPITAL Specimen Plasma Performing Organization Address [facility] Phon e Number [facility] DEPARTMENT OF PATHOLOGY AND [address] [place] [address] [phone] [address] Hemoglobin A1c (03/15/2020 4:45 AM WIND UP WORKER) Hemoglobin A1C 4.6 4.0 - 5.6 % [facility] Comment: HOSPITAL HbA1c cutoffs for diagnosing diabetes: [...] 1 diabetes. Specimen Blood Performing Organization Address City/[facility]/ZIP [facility] Phon e Number [facility] DEPARTMENT OF PATHOLOGY AND [address] [place] [address] [phone] [address] Thyroid stimulating hormone (03/15/2020 4:00 AM WIND UP WORKER) Pathologist Sig nature TSH 1.41 0.27 - 4.20 uIU/mL [facility] ITAL Specimen Plasma Performing Organization Address City/[facility] Phon e Number [facility] DEPARTMENT OF PATHOLOGY AND [address] [place] [phone] [facility] [address] [place] [address] T4 (03/15/2020 4:00 AM WIND UP WORKER) Pathologist Sig nature T4 6.9 4.5 - 11.7 ug/dL [facility] Specimen Plasma Performing Organization Address City/[facility] Phon e Number [facility] DEPARTMENT OF PATHOLOGY AND [address] [place] [address] [phone] [address] Bilirubin direct (03/15/2020 4:00 AM WIND UP WORKER) Pathologist Sig nature Bilirubin direct 0.5 (H) 0.0 - 0.3 mg/dL [facility] Specimen Plasma Performing Organization Address [facility] Phon e Number [facility] DEPARTMENT OF PATHOLOGY AND [address] [place] [address] [address] [address] Abdomen WWO Contrast, Pelvis W Contrast (03/14/2020 9:04 PM WIND UP WORKER) Specimen Narrative Performed At CT ABDOMEN WWO [...] is seen of right renal collecting system. [facility]-[id number] Procedure Note Interface, Radiology Results Incoming - 03/14/2020 11:[address] ABDOMEN WWO CONTRAST PELVIS W CONTRAST [...] is seen of right renal collecting system. [facility]-[id number] Performing Organization Address City/[facility]/ZIP Code [facility] [address] [place] [phone] Lactic acid level (03/14/2020 5:20 PM WIND UP WORKER) Pathologist [facility] nature Lactic acid 1.5 0.5 - 2.2 mmol/L [facility] Specimen Blood Performing Organization Address City/State/ZIP Code Phon e Number [facility] DEPARTMENT OF PATHOLOGY AND [address] [place] [phone] [facility] [address] [address] after 04/02/2019 Insurance Payer Benefit Plan / Subscriber ID Effective Dates Phone Addre ss Type Group [employer] 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
--- OUTSIDE RECORDS SUMMARY | 2020-04-02 21:59 | XMS REPORT | Continuity of Care Document ---
:[address] [facility] t Address [address] [place] [address] Care Team Providers Name Role Phone KimUsman carvajal Primary Care Physician Daniella REYES Attending Clinician Unavailable Deo Bullock MD Attending Clinician Brandyn REYES Attending Clinician Unavailable Nancy HENSLEY Attending Clinician Lab, Fam Pob I Attending Clinician Unavailable Nasrin REYES, Harley Attending Clinician Unavailable Alisha HENSLEY Attending Clinician HSAYY DAVEY Attending Clinician Unavailable JUDIT ESCALONA Attending Clinician Unavailable JAIME Admitting Clinician Unavailable NANCY Admitting Clinician Unavailable Alisha HENSLEY Admitting Clinician SHAYY DAVEY Admitting Clinician Unavailable JUDIT ESCALONA Admitting Clinician Unavailable Payers Payer Name Policy Type Policy Effective Date Expiration Date Sour ce Number [facility] [id number] 2019 [place] CHOICE 00:[place]:[address] [facility] EXCHANGE MARKETPLACExxxxxx [id number] 2019-Pr esentExchange Problems Condition Condition Condition Status Onset Resolution Last Treating Co mments Source Name Details Category Date Date Treatment Clinician Date Pancreatit Pancreatit Disease Active 2019-04 H oukellie is due to is due to 05-20 Meth dimitri common common 00:00: st bile duct bile duct 00 stone stone 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 2 Method i 00:00: st 00 Acute Acute Disease Active 2019-04 [place] pancreatit pancreatit 05-15 Me thodi is without is without 00:00: st infection infection 00 or or necrosis necrosis Epigastric Epigastric Disease Active [facility] abdominal abdominal 6-22 [facility] pain [facility] 00 Center Other Other Disease Active [facility] cirrhosis cirrhosis 6- [facility] - of liver of liver [...] Morphine Propensi Active Other (See 2019-04 Tightness [place] ty to Comments) 2 of throat Meth dimitri adverse 00:00: st reaction 00 s to drug Latex Propensi Active Rash 2016-[address] [facility] [facility] to 2-18 [facility] adverse [facility] Medical reaction 00 Center s Morphine Propensi Active Shortness Of Throat [facility] ty to Breath, 3-22 closes, [facility] - adverse Swelling 00:00: tongue Medical reaction 00 swelling [place] [facility] MORPHINE Adverse Active Info Not [facility] Reaction [facility] Social History Social Habit Start Date Stop Date Quantity Comments [facility] Alcohol Binge Sex Assigned At [facility] ethodist Exposure to Not sure [place] Metho dist SARS-CoV-2 (event) Tobacco use and 2020-03-19 2020-03-19 Never used [facility] ethodist exposure 00:00:00 00:00:00 Alcohol intake 2020-03-19 2020-03-19 Lifetime Nishant Queen thodist 00:00:00 00:00:00 non-drinker (finding) History SDOH 2020-03-19 2020-03-19 1 Nishant Tanner odist Alcohol Frequency 00:00:00 00:00:00 Smoking Status Start Date Stop Date Source Never smoker Nishant Methodis pb Medications Ordered Filled Start Stop Current Ordering Indication Dosage Frequency Signature Comments Components Source Medication Medication Date Date Medication? Clinician (SIG) Name Name lactulose 2019-04 Yes 20g QD Take 20 g Bárbara ston 10 gram/15 2-13 by mouth Metho di mL (15 mL) 15:45: daily. st solution 33 pancrelipas 2019-04- Yes 1{capsu Q.[id number] Take 1 [place] e, 2-13 04-22 le} [id number] capsule by Me savage lipase-prot 00:00: 23:[address] ease-amylas 00 :00 (three) e, (CREOND) times a 12,000-38,0 day with 00 -60,000 meals for unit 30 days. capsule,del ayed release(DR/ EC) capsule ibuprofen 2019-04 No 400mg Take 400 [place] (ADVIL) 200 2-08 12-08 mg by Method i MG tablet 16:34: 00:[address] 43 :00 once. HYDROcodone 2019-04- No acute pain 1{tbl} Q6H Take 1 [place] -acetaminop 2-08 12-15 tablet by Me savage hen (NORCO) 00:00: 23:[address] 5-325 mg 00 :00 every 6 per tablet (six) hours as needed for moderate pain for up to 7 days .acute pain. Max Daily Amount: 4 tablets Meloxicam Meloxicam 2020- No Gm [address] 09-17 07- Singh [facility] - 00:00: 00:00 [facility]oria [...] Clavulanate [facility] Vital Signs Vital Name Observation Time Observation Value Comments Source Systolic blood 2020-03-23 07:35:03 136 mm[Hg] [place]ly[place] n Yazidism pressure Diastolic blood 2020-03-23 07:35:03 64 mm[Hg] [place] Yazidism pressure Heart rate 2020-03-23 07:35:03 77 /min Nishant Chaidez Body temperature 2020-03-23 07:35:03 36 Sandee [place] Yazidism Respiratory rate 2020-03-23 07:35:03 20 /min Chelly Rileyist Oxygen saturation in 2020-03-23 07:35:03 96 /min Nishant Chaidez Arterial blood by Pulse oximetry Body weight 2020-03-23 06:00:00 122.103 kg Nishant Chaidez BMI 2020-03-23 06:00:00 46.21 kg/m2 Nishant Chaidez Body height 2020-03-14 16:30:50 162.6 cm Nishant Chaidez Procedures Procedure Date / Time Performed Performing Clinician Sourc e BASIC METABOLIC PANEL 2020-03-22 05:15:00 Dinakar, Jeremy jefferson Yazidism Deo HC COMPLETE BLD COUNT 2020-03-22 05:15:00 Dinakar, Jeremy jefferson Yazidism W/AUTO DIFF Deo MAGNESIUM LEVEL 2020-03-22 05:15:00 Dinakar, Jeremy Tanner odist Deo HEPATIC FUNCTION PANEL 2020-03-22 05:15:00 Dinakar, Jeremy Baez on Yazidism Deo PHOSPHORUS LEVEL 2020-03-22 05:15:00 Dinakar, Jeremy Frias hodnohelia Childersra PROTHROMBIN TIME WITH INR 2020-03-22 05:15:00 Dinakar, Jeremy wilburn Yazidism Deo LIPASE LEVEL 2020-03-22 05:15:00 Dinakar, Jeremy Tanner odist Deo AMYLASE LEVEL 2020-03-22 05:15:00 Dinakar, Jermey Tanner odnohelia Deo ESTIMATED GFR 2020-03-22 05:15:00 Dinakar, Jeremy Childersra SMEAR REVIEW 2020-03-22 05:15:00 Dinakar, Jeremy Tanner odist Deo BASIC METABOLIC PANEL 2020-03-21 04:43:00 Dinakar, Jeremy Desouza CBC WITH PLATELET AND 2020-03-21 04:43:00 Dinakar, Jeremy jefferson Yazidism DIFFERENTIAL Deo MAGNESIUM LEVEL 2020-03-21 04:43:00 Dinakar, Jeremy Tanner odist Deo HEPATIC FUNCTION PANEL 2020-03-21 04:43:00 Dinakar, Jeremy shelton Yazidism Deo PHOSPHORUS LEVEL 2020-03-21 04:43:00 Dinakar, Jeremy Childersra PROTHROMBIN TIME WITH INR 2020-03-21 04:43:00 Dinakar, Jeremy wilburn Yazidism Deo LIPASE LEVEL 2020-03-21 04:43:00 Dinakar, Jeremy Tanner odist Deo AMYLASE LEVEL 2020-03-21 04:43:00 Dinakar, Jeremy Tanner odist Deo ESTIMATED GFR 2020-03-21 04:43:00 Dinakar, Jeremy Tanner odnohelia Deo MANUAL DIFFERENTIAL 2020-03-21 04:43:00 Dinakar, Jeremy Chaidez Deo BASIC METABOLIC PANEL 2020-03-20 05:20:00 Dinakar, Jeremy jefferson Yazidism Deo HC COMPLETE BLD COUNT 2020-03-20 05:20:00 Dinakar, Jeremy jefferson Yazidism W/AUTO DIFF Deo MAGNESIUM LEVEL 2020-03-20 05:20:00 Dinakar, Jeremy Dillard Meth odist Deo HEPATIC FUNCTION PANEL 2020-03-20 05:20:00 Dinakar, Jeremy Baez on Yazidism Deo PHOSPHORUS LEVEL 2020-03-20 05:20:00 Dinakar, Jeremy Dillard Met hodnohelia Childersra PROTHROMBIN TIME WITH INR 2020-03-20 05:20:00 Dinakar, Jeremy Rileyist Deo LIPASE LEVEL 2020-03-20 05:20:00 Dinakar, Jeremy Tanner odist Deo AMYLASE LEVEL 2020-03-20 05:20:00 Dinakar, Jeremy Tanner odist Deo ESTIMATED GFR 2020-03-20 05:20:00 Dinakar, Jeremy Tanner odist Deo SMEAR REVIEW 2020-03-20 05:20:00 Dinakar, Jeremy Tanner odist Deo URINALYSIS, AUTOMATED 2020-03-19 12:52:00 Dinakar, Jeremy jefferson Yazidism WITH MICROSCOPY Deo COVID-19 QUALITATIVE PCR 2020-03-19 11:58:00 Dinakar, Jeremy hopkins Yazidism Deo BASIC METABOLIC PANEL 2020-03-19 11:55:00 Dinakar, Jeremy jefferson Yazidism Deo HC COMPLETE BLD COUNT 2020-03-19 11:55:00 Dinakar, Jeremy jefferson Yazidism W/AUTO DIFF Deo HEPATIC FUNCTION PANEL 2020-03-19 11:55:00 Dinakar, Jeremy Baez on Yazidism Deo MAGNESIUM LEVEL 2020-03-19 11:55:00 Dinakar, Jeremy Tanner odist Deo PHOSPHORUS LEVEL 2020-03-19 11:55:00 Dinakar, Jeremy Dillard Met usha Childersra PROTHROMBIN TIME WITH INR 2020-03-19 11:55:00 Dinakar, Jeremy wilburn Yazidism Deo AMYLASE LEVEL 2020-03-19 11:55:00 Dinakar, Jeremy Tanner odist Deo LIPASE LEVEL 2020-03-19 11:55:00 Dinakar, Jeremy Nishant Meth odist Deo ESTIMATED GFR 2020-03-19 11:55:00 Dinakar, Jeremy Nishant Meth odist Deo SMEAR REVIEW 2020-03-19 11:55:00 Dinakar, Jeremy Nishant Tanner odist Deo BASIC METABOLIC PANEL 2020-03-18 04:18:00 Dinakar, Jeremy jefferson Yazidism Deo HC COMPLETE BLD COUNT 2020-03-18 04:18:00 Dinakar, Jeremy jefferson Yazidism W/AUTO DIFF Deo MAGNESIUM LEVEL 2020-03-18 04:18:00 Dinakar, Jeremy Tanner odist Deo HEPATIC FUNCTION PANEL 2020-03-18 04:18:00 Dinakar, Jeremy shelton Yazidism Deo PHOSPHORUS LEVEL 2020-03-18 04:18:00 Dinakar, Jeremy Frias hodist Deo PROTHROMBIN TIME WITH INR 2020-03-18 04:18:00 Dinakar, Jeremy wilburn Yazidism Deo LIPASE LEVEL 2020-03-18 04:18:00 Dinakar, Jeremy Tanner odist Deo AMYLASE LEVEL 2020-03-18 04:18:00 Dinakar, Jeremy Tanner odist Deo ALPHA FETOPROTEIN 2020-03-18 04:18:00 Myra Quinn ESTIMATED GFR 2020-03-18 04:18:00 Myra Quinn Ca thodist SMEAR REVIEW 2020-03-18 04:18:00 Myra Quinn Ca thodist CBC WITH PLATELET AND 2020-03-17 04:15:00 Nakia Cruz Yazidism DIFFERENTIAL COMPREHENSIVE METABOLIC 2020-03-17 04:15:00 Nakia Cruz Yazidism PANEL MAGNESIUM LEVEL 2020-03-17 04:15:00 Nakia Cruz Meth odist PHOSPHORUS LEVEL 2020-03-17 04:15:00 Nakia Cruz Met hodist PROTHROMBIN TIME WITH INR 2020-03-17 04:15:00 Nakia Cruz Yazidism URIC ACID LEVEL 2020-03-17 04:15:00 Nakia Cruz Meth odist LDH 2020-03-17 04:15:00 Nakia Cruz Meth odist ESTIMATED GFR 2020-03-17 04:15:00 Nakia Cruz Meth odist SMEAR REVIEW 2020-03-17 04:15:00 Nakia Cruz Meth odist CBC WITH PLATELET AND 2020-03-16 04:32:00 Nakia Cruz Rishabh n Yazidism DIFFERENTIAL COMPREHENSIVE METABOLIC 2020-03-16 04:32:00 Nakia Cruz [place]ly [place] Yazidism PANEL MAGNESIUM LEVEL 2020-03-16 04:32:00 Nakia Cruz Meth odist PHOSPHORUS LEVEL 2020-03-16 04:32:00 Nakia Cruz Met hodist PROTHROMBIN TIME WITH INR 2020-03-16 04:32:00 Nakia Cruz Aurelio uston Yazidism URIC ACID LEVEL 2020-03-16 04:32:00 Nakia Cruz Meth odist LDH 2020-03-16 04:32:00 Nakia Cruz Meth odist ESTIMATED GFR 2020-03-16 04:32:00 Nakia Cruz Meth odist SMEAR REVIEW 2020-03-16 04:32:00 Nakia Cruz Meth odist CBC WITH PLATELET AND 2020-03-15 04:45:00 Nakia Cruz Rishabh n Yazidism DIFFERENTIAL PROTHROMBIN TIME WITH INR 2020-03-15 04:45:00 Nakia Cruz Aurelio issaton Yazidism HEMOGLOBIN A1C 2020-03-15 04:45:00 Nakia Cruz Meth odist SMEAR REVIEW 2020-03-15 04:45:00 Nakia Cruz Meth odist COMPREHENSIVE METABOLIC 2020-03-15 04:00:00 NancyVigneshNakia Chelly muñiz Yazidism PANEL MAGNESIUM LEVEL 2020-03-15 04:00:00 Nakia Cruz Meth odist PHOSPHORUS LEVEL 2020-03-15 04:00:00 Nakia Cruz Met hodist THYROID STIMULATING 2020-03-15 04:00:00 NancyNakia Yazidism HORMONE T4 2020-03-15 04:00:00 Nakia Cruz Meth odist URIC ACID LEVEL 2020-03-15 04:00:00 Nakia Cruz Meth odist LDH 2020-03-15 04:00:00 Nakia Cruz Meth odist ESTIMATED GFR 2020-03-15 04:00:00 Nakia Cruz Meth odist BILIRUBIN DIRECT 2020-03-15 04:00:00 Nakia Cruz Met usha CT ABDOMEN WWO CONTRAST 2020-03-14 21:04:21 NancyVigneshNakiaanita muñiz Yazidism PELVIS W CONTRAST COMPREHENSIVE METABOLIC 2020-03-14 17:20:00 NancyVigneshNakiaanita muñiz Yazidism PANEL HC COMPLETE BLD COUNT 2020-03-14 17:20:00 NancyVigneshNakia Rishabh jefferson Yazidism W/AUTO DIFF LIPASE LEVEL 2020-03-14 17:20:00 Nakia Cruz Meth odist MAGNESIUM LEVEL 2020-03-14 17:20:00 Nakia Cruz Meth odist PHOSPHORUS LEVEL 2020-03-14 17:20:00 Nakia Cruz Met usha PROTHROMBIN TIME WITH INR 2020-03-14 17:20:00 Nakia Cruz Aurelio Chaidez LACTIC ACID LEVEL 2020-03-14 17:20:00 Nakia Cruz Me thodist ESTIMATED GFR 2020-03-14 17:20:00 Nakia Cruz Meth odist SMEAR REVIEW 2020-03-14 17:20:00 Nakia Cruz Meth odist COVID-19 QUALITATIVE PCR 2020-03-14 16:30:00 Nakia Cruz Bárbara Chaidez Plan of Care Planned Activity Planned Date Details Comments Source Future Scheduled 2021-10-[address] [facility] 00:00:00 (procedure) [code = [facility] [id number]] Future Scheduled 2019-12-[address] [facility] Test 00:00:00 (#1) [code = [facility] INFLUENZA VACCINE (#1)] Future Scheduled 2019-11-10 INFLUENZA VACCINE [place] [facility] Test 00:00:00 [code = INFLUENZA VACCINE] Future Scheduled 2011 BREAST CANCER [facility] Me thodist Test 00:00:00 SCREENING [code = BREAST CANCER SCREENING] Future Scheduled 2011 COLONOSCOPY SCREENING [place] [facility] Test 00:00:00 [code = COLONOSCOPY SCREENING] Future Scheduled 2011 SHINGLES VACCINES [place] [facility] Test 00:00:00 (#1) [code = SHINGLES VACCINES (#1)] Future Scheduled [address] [facility] - Test 00:00:00 [facility] cervix (procedure) [code = 196753769] Future Scheduled 1982 Screening for [place] Me thodist Test 00:00:00 malignant neoplasm of cervix (procedure) [code = 283344521] Future Scheduled 1977 COVID-19 VACCINE (#1) [place] [facility] Test 00:00:00 [code = COVID-19 VACCINE (#1)] Future Scheduled 1961 Screening for [facility] St [facility] - Test 00:00:00 malignant neoplasm of [facility] breast (procedure) [code = 473614392] Future Scheduled [address] [facility] - Test 00:00:00 malignant neoplasm of [facility] colon (procedure) [code = 878634715] Encounters Start End Encounter Admission Attending Care Care Encounter Source Date/Time Date/Time Type Type Clinicians Facility Department ID 2020-03-19 2020-03-23 Inpatient [facility] [id number] [place] 00:00:00 00:00:00 JEREMY 742 Method i 2020-03-14 2020-03-18 Inpatient [facility] [id number] [place] 00:00:00 00:00:00 JEREMY 157 Method i 2020-02-13 2020-02-13 Laboratory Lab, [facility] [id number] 10:22:10 10:42:10 Only Fam Pob I [facility] [id number] [place] [id number] Professio [id number] nal 0[address] One 2019-09-28 2019-09-28 [facility] [id number] 09:00:00 09:00:[facility] ent Clinics 2019-09-18 2019-09-18 [facility] [id number] 09:30:00 09:30:00 [facility] ent Clinics 2019-08-14 2019-08-14 Transition Jocelyne Alexandra [id number] 00:00:00 00:00:00 of Care Jovanny Sotelo [id number] Brittany [id number] [id number] 2019-08-10 2019-08-11 [facility] [id number] 02:55:00 16:09:00 Encounter Wes Amin [id number] [place] 4.2.7.2.686 [place] [id number] Results Test Description Test Time Test Comments Results Result Comments Source Smear review 2020-03-22 09:52:20 Test Item Value Reference Range Interpretation Comme nts Platelet slide review (test code = 86940-0) Mkd decreased A Anisocytosis (test code = 702-1) Moderate Polychromasia (test code = 88416-6) Moderate Ovalocytes (test code = 774-0) Moderate Lab Interpretation (test code = 22706-1) Abnormal [place] [facility] metabolic [id number] 06:34:17 Test Item Value Reference Range Interpretation Comments Sodium (test code = 2951-2) 139 135- 148 mEq/L Potassium (test code = 2823-3) 3.9 3.5- 5.0 mEq/L Chloride (test code = 2075-0) 106 98- 112 mEq/L CO2 (test code = 2027-9) 27 24- 31 mEq/L Anion gap (test code = 87525-5) 6@ANIO 7- 15 mEq/L L BUN (test code = 3094-0) 9 mg/dL 6-20 Creatinine (test code = 2160-0) 0.54 mg/dL 0.5-0.9 Glucose (test code = 2345-7) 145 mg/dL 65-99 H Calcium (test code = 01893-8) 8.2 mg/dL 8.3-10.2 L Lab Interpretation (test code = Abnormal 30748-7) [place] MethodistHepatic function [id number] 06:34:17 Test Item Value Reference Range Interpretation Comments Albumin (test code = 2.7 g/dL 3.5-5 L 1-7) Total bilirubin (test 1.1 mg/dL 0-1.2 code = 1974-2) Bilirubin direct (test 0.4 mg/dL 0-0.3 H code = 1968-7) Alkaline phosphatase 114 U/L 35-104 H (test code = 6768-6) Protein (test code = 6.0 g/dL 6.3-8.3 L -[place] 2885-2) 4.6-7.0 g /dL1 week 4.4-7.6 g/dL 7 months-1year 5.1-7.3 g/dL 1-2 years 5.6-7.5 g/dL>3 years 6.0-8.0 g/jH55-840 6.3-8. 3 g/dL ALT (test code = 1742-6) 31 U/L 5-50 AST (test code = 1920-8) 39 U/L 10-35 H Lab Interpretation (test Abnormal code = 46091-5) [place] MethodistLipase [id number] 06:34:17 Test Item Value Reference Range Interpretation Comments Lipase (test code = 3040-3) 94 U/L 13-60 H Lab Interpretation (test code = Abnormal 33875-3) [place] MethodistMagnesium [id number] 06:34:17 Test Item Value Reference Range Interpretation Comments Magnesium (test code = 51654-4) 1.9 mg/dL 1.6-2.6 [place] MethodistEstimated [id number] 06:34:16 Test Item Value Reference Range Interpretation Comments Estimated GFR (test >=90 mL/min/1.73 m2 [facility] Units code = 5488) InterpretationG 1 >=90 Normal or highG2 60-89 Mildly bmftpadpmC2f 45-59 Mildly to mode rately ddgaiijftL1c 30-44 Moderately to severely decreasedG4 15-29 Severely decre asedG5 <15 Kidn ey failureThe eGFR was calculated cb peng the Chronic Kidney Disease Epidemiology Co llaboration (CKD-EPI) equat ion. Interpretation is based on recommendations of the National Kidney Foundation-Kidn ey Disease Outcomes Qualit y Initiative (NKF-KDOQI) pub lished in 2013. [place] MethodistPhosphorus [id number] 06:34:15 Test Item Value Reference Range Interpretation Comments Phosphorus (test code = 2777-1) 2.6 mg/dL 2.4-4.5 [place] MethodistAmylase [id number] 06:34:14 Test Item Value Reference Range Interpretation Comments Amylase (test code = 1798-8) 59 U/L 28-100 [place] MethodistCBC with platelet and [id number] 06:32:26 Test Item Value Reference Range Interpretation Comments WBC (test code = 67677-8) 1.89 4.50- 11.00 k/uL L RBC (test code = 51805-4) 3.21 m/uL 4.2-5.5 L HGB (test code = 718-7) 9.3 g/dL 12-16 L HCT (test code = 4544-3) 29.9 % 37-47 L MCV (test code = 787-2) 93.1 fL 82-100 MCH (test code = 785-6) 29.0 pg 27-34 MCHC (test code = 786-4) 31.1 g/dL 31-37 RDW - SD (test code = 52.6 fL 37-55 60433-9) MPV (test code = 96697-9) 11.3 fL 8.8-13.2 Platelet count (test code 45 150- 400 k/uL L = 17118-7) Nucleated RBC (test code 0.00 /100 WBC = 76434-0) Neutrophils (test code = 57.7 % 39-69 95959-4) Lymphocytes (test code = 23.3 % 25-45 L 44919-0) Monocytes (test code = 14.8 % 0-10 H 77689-2) Eosinophils (test code = 3.7 % 0-5 48270-0) Basophils (test code = 0.5 % 0-1 52098-4) Immature granulocytes 0.0 % 0-1 "Immat ure (test code = 12249-3) granul ocytes" (promyelocytes, myelocytes, metamyelocytes) Lab Interpretation (test Abnormal code = 91201-8) Nishant RileyistProthrombin time with [id number] 06:20:16 Test Item Value Reference Range Interpretation Comments Prothrombin time (test 16.3 11.5- 14.5 sec H code = 5902-2) INR (test code = 1.3 The Interna tional 52749-4) Normalized Rati o (INR) is a therapeuti c monitoring tool for patients who ar e stable on oral anticoagulant t herapy. An INR of 2.0-3 .0 is suggested for d eep vein thrombosis/pulm onary embolism. Lab Interpretation Abnormal (test code = 73428-7) [place] MethodistManual [id number] 09:44:19 Test Item Value Reference Range Interpretation Comments Manual differential (test code PERFORMED = 81325-1) Neutrophils (test code = 59.0 % 39-69 75552-7) Lymphocytes (test code = 25.0 % 25-45 29295-3) Monocytes (test code = 55124-4) 10.0 % 0-10 Eosinophils (test code = 6.0 % 0-5 H 15556-7) Basophils (test code = 36745-8) 0.0 % 0-1 Metamyelocytes (test code = 0 % 740-1) Promyelocytes (test code = 0 % 783-1) Platelet slide review (test Mkd decreased A code = 89348-8) Anisocytosis (test code = Moderate 702-1) Polychromasia (test code = Moderate 82220-4) Ovalocytes (test code = 774-0) Moderate Lab Interpretation (test code = Abnormal 18602-5) [place] MethodistCOVID-19 qualitative [id number] 16:32:54 Test Item Value Reference Range Interpretation Comments Interpretation (test Negative results do code = 3990020) not preclude 2019-nCoV infection and should not be used as the sole basis for treatment or other patient management decisions. Negative results must be combined with clinical observations, patient history, and epidemiological information. COVID-19 qualitative Not-Detected Not-Detected PCR result (test code = 02480-3) COVID-19 qualitative See link below for C ase Number: PCR (test code = PDF Lab Report [id number]) [place] MethodistUrinalysis, automated with [id number] 15:33:04 Test Item Value Reference Range Interpretation Comments Color, UA (test code = 5778-6) Straw Appearance, UA (test code = 5767-9) Clear Specific gravity, UA (test code = 1.015 1.001-1.035 5811-5) pH, UA (test code = 5803-2) 8.0 5.0-8.5 Protein, UA (test code = 71376-0) Negative Negative Glucose, UA (test code = 53101-2) Negative Negative Ketones, UA (test code = 2514-8) Negative Negative Bilirubin, UA (test code = 5770-3) Negative Negative Blood, UA (test code = 5794-3) Negative Negative Nitrite, UA (test code = 5802-4) Negative Negative Urobilinogen, UA (test code = <2.0 <2.0 14187-1) Leukocyte esterase, UA (test code = Negative Negative 5799-2) Epithelial cells, UA (test code = 2 /HPF 5787-7) WBC, UA (test code = 5821-4) 2 0- 4 /HPF RBC, UA (test code = 27395-9) <1 0- 5 /HPF Bacteria, UA (test code = 40212-1) None seen None seen Yeast, UA (test code = 91634-8) None seen Yeast with pseudohyphae, UA (test None seen code = 03566-6) Nishant MethodistAlpha [id number] 15:09:44 Test Item Value Reference Range Interpretation Comments Alpha fetoprotein 5.3 ng/mL 0-8.3 The Lzu 8000 AFP (test code = immunoassay was used. 23265-3) Results obtaine d with different assay methods or kits should not be used interchang eably and may be differen kade [facility] MethodistComprehensive metabolic [id number] 06:54:25 Test Item Value Reference Range Interpretation Comments Sodium (test code = 140 135- 148 mEq/L 2951-2) Potassium (test code = 4.0 3.5- 5.0 mEq/L 2823-3) Chloride (test code = 106 98- 112 mEq/L 5-0) CO2 (test code = 2027-9) 27 24- 31 mEq/L Anion gap (test code = 7@ANIO 7- 15 mEq/L 09152-6) BUN (test code = 3094-0) 9 mg/dL 6-20 Creatinine (test code = 0.63 mg/dL 0.5-0.9 2160-0) Glucose (test code = 122 mg/dL 65-99 H 2345-7) Calcium (test code = 8.1 mg/dL 8.3-10.2 L 81908-6) Protein (test code = 5.5 g/dL 6.3-8.3 L -[place] 2885-2) 4.6-7.0 g/dL1 week 4.4-7 .6 g/dL7 months-1y ear 5.1-7 .3 g/dL1-2 years 5.6-7 .5 g/dL>3 years 6.0-8 .0 g/eO75-847 6.3-8 .3 g/dL Albumin (test code = 2.6 g/dL 3.5-5 L 1751-7) A/G ratio (test code = 0.9 0.7-3.8 1759-0) Alkaline phosphatase 119 U/L 35-104 H (test code = 6768-6) AST (test code = 1920-8) 36 U/L 10-35 H ALT (test code = 1742-6) 37 U/L 5-50 Total bilirubin (test 1.0 mg/dL 0-1.2 code = 1974-2) Lab Interpretation (test Abnormal code = 40652-4) [place] [id number] 06:54:25 Test Item Value Reference Range Interpretation Comments LDH (test code = 56317-8) 243 U/L 87-225 H Lab Interpretation (test code = Abnormal 57935-6) [facility] [id number] 06:54:25 Test Item Value Reference Range Interpretation Comments Uric acid (test code = 3084-1) 4.2 mg/dL 2.4-5.7 [place] [facility] care corporationHemoglobin [id number] 12:16:07 Test Item Value Reference Range Interpretation Comments Hemoglobin A1C (test 4.6 % 4-5.6 HbA1c c utoffs for code = 95998-7) diagnosing d iabetes:4.0% - 5.6% = normal 5.7% - 6.4% = increase d risk for diabetes (prediabetes)9> =6.5% = [id number] for glycemic contro l (ADA 2016)< 7.0% Ta rget for non jet lts with diabetes. More or less stringent targe ts may be appropriate for individual juan pablo ents. <7.5% [facility] and ad olescents with type 1 pallavi betes. [employer] [id number] 08:43:11 Test Item Value Reference Range Interpretation Comments T4 (test code = 3026-2) 6.9 ug/dL 4.5-11.7 [place] MethodnoheliaThyroid stimulating [id number] 06:09:22 Test Item Value Reference Range Interpretation Comments TSH (test code = 3016-3) 1.41 0.27- 4.20 uIU/mL [place] [facility] [id number] 06:05:32 Test Item Value Reference Range Interpretation Comments Bilirubin direct (test code = 0.5 mg/dL 0-0.3 H 1967-) Lab Interpretation (test code = Abnormal 65757-8) [place] [facility] Abdomen WWO Contrast, Pelvis W [id number] 23:51:35Hm Interface, Radiology Results - 03/14/2020 11:54 [...] calculus is seen of right renal collecting system.[facility]-[id number] MethodistLactic acid [id number] 18:33:22 Test Item Value Reference Range Interpretation Comments Lactic acid (test code = 70973-9) 1.5 mmol/L 0.5-2.2 [place] [facility], CHEST, 1 VIEW, NON [id number] 07:50:00Reason for exam:->SOBShould this be performed at the bedside?->YesFINAL REPORT CLINICAL HISTORY: SOB TECHNIQUE: 1 view of the chest. COMPARISON: None IMPRESSION: There is pulmonary vascular congestion with prominent lung markings bilaterally. Subpulmonic pleural effusions cannot be excluded. The cardiomediastinal silhouette is magnified by technique. Signed: Franky Louis [facility]Repliberty [facility] Verified Date/Time: 10/03/2018 07:50:47 Reading Location: [facility] Radiology Reading Room [id number] 07:37:00 Test Item Value Reference Range Interpretation Comments MAGNESIUM (BEAKER) (test code = 1.6 mg/dL 1.6-2.6 627) BASIC METABOLIC [id number] 07:37:00 Test Item Value Reference Range Interpretation [...] DIALYSIS PATIEN TS. Specimen slightly ictericHEPATIC FUNCTION [id number] 07:37:00 Test Item Value Reference Range Interpretation [...] 35 U/L 6-55 347) Specimen slightly ictericPROTHROMBIN [id number] 06:25:00 Test Item Value Reference Range Interpretation [...] mechanical heart valves.CBC W/PLT COUNT & AUTO [id number] 06:16:00 Test Item Value Reference Range Interpretation [...] = 3438) Received comment: User comments: Slide comments:[id number] 05:58:00 Test Item Value Reference Range Interpretation Comments MAGNESIUM (BEAKER) (test code = 1.6 mg/dL 1.6-2.6 627) BASIC METABOLIC [id number] 05:58:00 Test Item Value Reference Range Interpretation [...] DIALYSIS PATIEN TS. Specimen slightly ictericHEPATIC FUNCTION [id number] 05:58:00 Test Item Value Reference Range Interpretation [...] 39 U/L 6-55 347) Specimen slightly ictericPROTHROMBIN [id number] 05:26:00 Test Item Value Reference Range Interpretation [...] mechanical heart valves.CBC W/PLT COUNT & AUTO [id number] 05:20:00 Test Item Value Reference Range Interpretation [...] WBC 0-0 (test code = 413) VITAMIN [id number] 06:57:00 Test Item Value Reference Range Interpretation Comments VITAMIN B12 (BEAKER) (test code = 178 pg/mL 213-816 L 774) [id number] 06:57:00 Test Item Value Reference Range Interpretation Comments FERRITIN (BEAKER) (test code = 361) 21 ng/mL 5-275 FOLATE, [id number] 06:57:00 Test Item Value Reference Range Interpretation [...] 28 % 20-55 (test code = 2590) [id number] 05:59:00 Test Item Value Reference Range Interpretation Comments MAGNESIUM (BEAKER) (test code = 1.7 mg/dL 1.6-2.6 627) BASIC METABOLIC [id number] 05:59:00 Test Item Value Reference Range Interpretation [...] FOR DIALYSIS PATIEN TS. Specimen slightly ictericLIPID [id number] 05:59:00 Test Item Value Reference Range Interpretation [...] Very High >=190 Specimen slightly ictericHEPATIC FUNCTION [id number] 05:59:00 Test Item Value Reference Range Interpretation [...] = 41 U/L 6-55 347) Specimen slightly [id number] 05:59:00 Test Item Value Reference Range Interpretation Comments LIPASE (BEAKER) (test code = 749) 35 U/L 8-78 Specimen slightly ictericPROTHROMBIN [id number] 05:58:00 Test Item Value Reference Range Interpretation [...] mechanical heart valves.CBC W/PLT COUNT & AUTO [id number] 05:37:00 Test Item Value Reference Range Interpretation [...] PERCENT (BEAKER) (test code = 2801) POCT-HEMOGLOBIN [id number] 06:12:00 Test Item Value Reference Range Interpretation Comments POC-HEMOGLOBIN METER 8.6 g/dL 12.0-15.0 L TESTED AT [facility] [address] ([facility]) (test code = [place] [id number] 1539)
[2020-04-02 23:54] LABS: Absolute Lymphocytes (CBC) 0.6 K/uL (0.7-4.9); Basophils % 0.7 % (0-1.3); Hematocrit 33.7 % (36.0-45.0); Lymphocytes % 16.3 % (15.3-44.8); RBC Red Blood Cell Count 3.84 M/uL (3.86-4.86)
[2020-04-03] MEDS ORDERED: HYDROMORPHONE HCL 1 MG/ML INJ ONE
[2020-04-03] MEDS ORDERED: NA CHLORIDE 0.9% 1,000 ML ONE
[2020-04-03 00:06] LABS: Albumin 3.2 g/dL (3.4-5.0); Bilirubin Direct 0.4 mg/dL (0-0.2); Bilirubin Total 1.2 mg/dL (0.2-1.0); Protein, Total 7.1 g/dL (6.4-8.2)
[2020-04-03 00:34] LABS: Blood Morphology Comment NOT SEEN (NOT SEEN); Platelet Estimate DECR; White Blood Cell Scan OK (OK)
--- NOTE | 2020-04-03 02:38 | ER ---
Nurse's Notes [facility] Name: Zenaida Goss Age: 59 yrs Sex: Female : 1960 Arrival Date: 04/02/2020 Time: 21:56 Bed 15 Private MD: Diagnosis: Acute pancreatitis Presentation: 04/02 22:01 Chief complaint: Patient states: Upper abd pain with nausea for 2 days. History of ll1 pancreatitis. Coronavirus screen: Client denies travel out of the [place] in the last 14 days. At this time, the client does not indicate any symptoms associated with coronavirus-19. Ebola Screen: Patient denies travel to an Ebola-affected area in the 21 days before illness onset. Initial Sepsis Screen: Does the patient meet any 2 criteria? Altered Mental Status. No. Patient's initial sepsis screen is negative. Does the patient have a suspected source of infection? Yes: Acute abdominal pain. Risk Assessment: Do you want to hurt yourself or someone else? Patient reports no desire to harm self or others. Onset of symptoms was April 01, 2020. 22:01 Method Of Arrival: Ambulatory 1 22:01 Acuity: TANK 3 ll1 Historical: - Allergies: 22:01 Morphine (Anaphylaxis); ll1 - PMHx: 22:01 breast cancer; Cirrhosis; fatty liver; Pancreatitis; varices; Anemia; ll1 - PSHx: 22:01 Appendectomy; Cholecystectomy; Hysterectomy; Lumpectomy; ll1 - Immunization history:: Flu vaccine is up to date. - Social history:: Smoking status: Patient denies any tobacco usage or history of. Patient/guardian denies using alcohol, street drugs, The patient lives with family. - Family history:: not pertinent. Screenin:15 Abuse screen: Denies threats or abuse. Nutritional screening: No deficits noted. jb4 Tuberculosis screening: No symptoms or risk factors identified. Fall Risk None identified. Assessment: 23:15 General: Appears in no apparent distress. uncomfortable, Behavior is calm, cooperative, jb4 appropriate for age. Pain: Complains of pain in abdomen Pain does not radiate. Pain currently is 10 out of 10 on a pain scale. Neuro: Level of Consciousness is awake, alert, obeys commands, Oriented to person, place, time, situation. Cardiovascular: Patient's skin is warm and dry. Respiratory: Airway is patent Respiratory effort is even, unlabored, Respiratory pattern is regular, symmetrical. GI: Abdomen is non-distended, obese. : No signs and/or symptoms were reported regarding the genitourinary system. EENT: No signs and/or symptoms were reported regarding the EENT system. Derm: Skin is intact, Skin is pink, warm \T\ dry. Musculoskeletal: Circulation, motion, and sensation intact. Range of motion: intact in all extremities. 04/03 00:36 Reassessment: PT in CT. jb4 01:30 Reassessment: Patient appears in no apparent distress at this time. Patient and/or jb4 family updated on plan of care and expected duration. Pain level reassessed. Patient is alert, oriented x 3, equal unlabored respirations, skin warm/dry/pink. 02:30 Reassessment: Patient appears in no apparent distress at this time. Patient and/or jb4 family updated on plan of care and expected duration. Pain level reassessed. Patient is alert, oriented x 3, equal unlabored respirations, skin warm/dry/pink. 03:26 Reassessment: Patient appears in no apparent distress at this time. Patient and/or jb4 family updated on plan of care and expected duration. Pain level reassessed. Patient is alert, oriented x 3, equal unlabored respirations, skin warm/dry/pink. Vital Signs: 04/02 22:01 BP 147 / 58; Pulse 95; Resp 20; Temp 98.4; Pulse Ox 99% ; Weight 117.93 kg; Height 5 ll1 ft. 4 in. (162.56 cm); Pain 10/10; 04/03 01:30 BP 109 / 61; Pulse 86; Resp 16; Pulse Ox 93% on R/A; jb4 02:30 BP 122 / 71; Pulse 80; Resp 16; Pulse Ox 94% on R/A; jb4 03:00 BP 121 / 66; Pulse 79; Resp 16; Pulse Ox 96% on R/A; jb4 04/02 22:01 Body Mass Index 44.63 (117.93 kg, 162.56 cm) ll1 ED Course: 04/02 21:56 Patient arrived in ED. rg4 22:01 Arm band placed on. ll1 22:03 Triage completed. ll1 23:07 Osmar Sutherland MD is Attending Physician. ma2 23:13 Gilberto Hoang, RN is Primary Nurse. jb4 23:40 Bed in low position. Call light in reach. Side rails up X 1. Warm blanket given. Verbal jp3 reassurance given. Pulse ox on. NIBP on. 23:40 Inserted saline lock: 20 gauge in left antecubital area, using aseptic technique. Blood jp3 collected. 23:40 Initial lab(s) drawn, by me, sent to lab. Patient maintains SpO2 saturation greater jp3 than 95% on room air. 04/03 01:01 CT Abd/Pelvis - IV Contrast Only In Process Unspecified. EDMS 03:27 No provider procedures requiring assistance completed. IV discontinued, intact, jb4 bleeding controlled, No redness/swelling at site. Pressure dressing applied. Administered Medications: 04/02 23:50 Drug: Zofran (Ondansetron) 4 mg Route: IVP; Site: left antecubital; jb4 04/03 00:25 Follow up: Response: No adverse reaction; Marked relief of symptoms jb4 04/02 23:55 Drug: NS 0.9% 1000 ml Route: IV; Rate: 1000 ml; Site: left antecubital; jb4 23:55 Drug: Dilaudid 1 mg Route: IVP; Site: left antecubital; jb4 04/03 00:25 Follow up: Response: No adverse reaction; Pain is decreased; RASS: Alert and Calm (0) jb4 03:20 Drug: fentaNYL (PF) 25 mcg Route: IVP; Site: left antecubital; jb4 03:25 Follow up: Response: No adverse reaction; Marked relief of symptoms jb4 03:20 Drug: Zofran (Ondansetron) 4 mg Route: IVP; Site: left antecubital; jb4 03:25 Follow up: Response: No adverse reaction; Marked relief of symptoms jb4 Outcome: 02:37 Discharge ordered by . ma2 03:27 Discharged to home ambulatory. jb4 03:27 Condition: stable 03:27 Discharge instructions given to patient, Instructed on discharge instructions, follow up and referral plans. medication usage, Demonstrated understanding of instructions, follow-up care, medications, Prescriptions given X 1. 03:28 Patient left the ED. jb4 Signatures: Dispatcher [employer] Di Holley rg4 Gilberto Hoang, RN RN jb4 Osmar Sutherland MD MD ma2 Jj Patino jp3 Lashae Long RN RN ll1
--- NOTE | 2020-04-03 02:38 | EDPHYS ---
Physician Documentation [facility] Name: Zenaida Goss Age: 59 yrs Sex: Female : 1960 Arrival Date: 04/02/2020 Time: 21:56 Bed 15 Private MD: ED Physician Osmar Sutherland HPI: 04/03 00:04 This 59 yrs old Female presents to ER via Ambulatory with complaints of ma2 Abdominal Pain. 00:04 The patient presents with abdominal pain. Onset: The symptoms/episode began/occurred ma2 gradually, 1 week(s) ago. Associated signs and symptoms: Pertinent negatives: anorexia, chest pain, diarrhea, headache. Severity of pain: At its worst the pain was moderate in the emergency department the pain is unchanged. The patient has not experienced similar symptoms in the past. Historical: - Allergies: 04/02 22:01 Morphine (Anaphylaxis); ll1 - PMHx: 22:01 breast cancer; Cirrhosis; fatty liver; Pancreatitis; varices; Anemia; ll1 - PSHx: 22:01 Appendectomy; Cholecystectomy; Hysterectomy; Lumpectomy; ll1 - Immunization history:: Flu vaccine is up to date. - Social history:: Smoking status: Patient denies any tobacco usage or history of. Patient/guardian denies using alcohol, street drugs, The patient lives with family. - Family history:: not pertinent. ROS: 04/03 00:04 Constitutional: Negative for fever, chills, and weight loss, MS/Extremity: Negative for ma2 injury and deformity. All other systems are negative. Exam: 00:04 Constitutional: This is a well developed, well nourished patient who is awake, alert, ma2 and in no acute distress. Head/Face: Normocephalic, atraumatic. Eyes: Pupils equal round and reactive to light, extra-ocular motions intact. Lids and lashes normal. Conjunctiva and sclera are non-icteric and not injected. Cornea within normal limits. Periorbital areas with no swelling, redness, or edema. ENT: Nares patent. No nasal discharge, no septal abnormalities noted. Tympanic membranes are normal and external auditory canals are clear. Oropharynx with no redness, swelling, or masses, exudates, or evidence of obstruction, uvula midline. Mucous membranes moist. Neck: Trachea midline, no thyromegaly or masses palpated, and no cervical lymphadenopathy. Supple, full range of motion without nuchal rigidity, or vertebral point tenderness. No Meningismus. Chest/axilla: Normal chest wall appearance and motion. Nontender with no deformity. No lesions are appreciated. Cardiovascular: Regular rate and rhythm with a normal S1 and S2. No gallops, murmurs, or rubs. Normal PMI, no JVD. No pulse deficits. Respiratory: Lungs have equal breath sounds bilaterally, clear to auscultation and percussion. No rales, rhonchi or wheezes noted. No increased work of breathing, no retractions or nasal flaring. Abdomen/GI: Soft, non-tender, with normal bowel sounds. No distension or tympany. No guarding or rebound. No evidence of tenderness throughout. Skin: Warm, dry with normal turgor. Normal color with no rashes, no lesions, and no evidence of cellulitis. MS/ Extremity: Pulses equal, no cyanosis. Neurovascular intact. Full, normal range of motion. Neuro: Awake and alert, GCS 15, oriented to person, place, time, and situation. Cranial nerves II-XII grossly intact. Motor strength 5/5 in all extremities. Sensory grossly intact. Cerebellar exam normal. Normal gait. Vital Signs: 04/02 22:01 BP 147 / 58; Pulse 95; Resp 20; Temp 98.4; Pulse Ox 99% ; Weight 117.93 kg; Height 5 ll1 ft. 4 in. (162.56 cm); Pain 10/10; 04/03 01:30 BP 109 / 61; Pulse 86; Resp 16; Pulse Ox 93% on R/A; jb4 02:30 BP 122 / 71; Pulse 80; Resp 16; Pulse Ox 94% on R/A; jb4 03:00 BP 121 / 66; Pulse 79; Resp 16; Pulse Ox 96% on R/A; jb4 04/02 22:01 Body Mass Index 44.63 (117.93 kg, 162.56 cm) ll1 MDM: 04/02 23:07 Patient medically screened. ma2 04/03 00:04 Differential diagnosis: gastritis, Hepatitis, Irritable bowel syndrome, pancreatitis. [facility] 02:37 Data reviewed: vital signs, nurses notes. Counseling: I had a detailed discussion with ma2 the patient and/or guardian regarding: the historical points, exam findings, and any diagnostic results supporting the discharge/admit diagnosis, the presence of at least one elevated blood pressure reading (>120/80) during this emergency department visit, the need for outpatient follow up. Response to treatment: the patient's symptoms have markedly improved after treatment. 04/02 23:08 Order name: BMP; Complete Time: 00:50 ma2 04/02 23:08 Order name: CBC with Diff; Complete Time: 00:50 az2 04/02 23:08 Order name: Hepatic Function; Complete Time: 00:50 ma2 04/02 23:08 Order name: Lipase; Complete Time: 00:50 ma2 04/02 23:59 Order name: CBC Smear Scan; Complete Time: 00:50 EDMS 04/03 01:33 Order name: Urine Dipstick--Ancillary (enter results) [facility] 04/02 23:08 Order name: IV Saline Lock; Complete Time: 23:42 [facility] 04/02 23:08 Order name: Labs collected and sent; Complete Time: 23:42 [facility] 04/02 23:08 Order name: CT Abd/Pelvis - IV Contrast Only [facility] 04/02 23:08 Order name: NPO; Complete Time: 23:20 [facility] 04/02 23:08 Order name: Urine Dipstick-Ancillary (obtain specimen); Complete Time: 02:04 ma2 Administered Medications: 04/02 23:50 Drug: Zofran (Ondansetron) 4 mg Route: IVP; Site: left antecubital; [facility] 04/03 00:25 Follow up: Response: No adverse reaction; Marked relief of symptoms [facility] 04/02 23:55 Drug: NS 0.9% 1000 ml Route: IV; Rate: 1000 ml; Site: left antecubital; jb4 23:55 Drug: Dilaudid 1 mg Route: IVP; Site: left antecubital; 4 04/03 00:25 Follow up: Response: No adverse reaction; Pain is decreased; RASS: Alert and Calm (0) [facility] 03:20 Drug: fentaNYL (PF) 25 mcg Route: IVP; Site: left antecubital; [facility] 03:25 Follow up: Response: No adverse reaction; Marked relief of symptoms [facility] 03:20 Drug: Zofran (Ondansetron) 4 mg Route: IVP; Site: left antecubital; jb4 03:25 Follow up: Response: No adverse reaction; Marked relief of symptoms jb4 Disposition: 04/03/20 02:37 Discharged to Home. Impression: Acute pancreatitis. - Condition is Stable. - Discharge Instructions: Acute Pancreatitis. - Prescriptions for Diclofenac Sodium 75 mg Oral Tablet Sustained Release - take 1 tablet by ORAL route 2 times per day; 30 tablet. - Medication Reconciliation Form, Thank You Letter, Antibiotic Education, Prescription Opioid Use form. - Follow up: Private Physician; When: As needed; Reason: If symptoms return. Signatures: Dispatcher [employer] EDMS Siddharth Marco A, POLE INSPECTOR-C POLE INSPECTOR-Cla1 Gilberto Hoang, RN RN jb4 Osmar Sutherland MD MD ma2 Lashae Long RN RN ll1 Corrections: (The following items were deleted from the chart) 03:28 02:37 04/03/2020 02:37 Discharged to Home. Impression: Acute pancreatitis. Condition is jb4 Stable. Prescriptions for Diclofenac Sodium 75 mg Oral Tablet Sustained Release - take 1 tablet by ORAL route 2 times per day; 30 tablet. and Forms are Medication Reconciliation Form, Thank You Letter, Antibiotic Education, Prescription Opioid Use. Follow up: Private Physician; When: As needed; Reason: If symptoms return. [email or web address]
[2020-04-03] MEDS ORDERED: ONDANSETRON 4 MG/2 ML VIAL ONE ×2 (03:24)
[2020-04-03] MEDS ORDERED: FENTANYL CITR 100 MCG/2 ML ONE (03:24)
[2020-04-03 03:33] LABS: Urine Blood NEGATIVE (NEG); Urine Glucose NEGATIVE (NEG); Urine Protein NEGATIVE (NEG); Urine Specific Gravity 1.025 (1.005-1.030); Urine pH 7.5 (5.0-7.0)
[2020-04-03 03:37] VITALS: TEMP 98.4
[2020-04-03 03:41] VITALS: BP 121/66; O2SAT 96
--- NOTE | 2020-04-03 11:05 | RAD REPORT ---
EXAM DESCRIPTION: CT - Abdomen Pelvis W Contrast - 04/03/2020 6:40 am CLINICAL HISTORY: ABD PAIN COMPARISON: 03/19/2020 TECHNIQUE: CT of the abdomen and pelvis performed following IV administration of iodinated contras t. FINDINGS: Lung Bases: The visualized lung bases are clear. Bones: No destructive bone lesions identified. Abdomen: Liver: Nodular contour of the liver. No definite intrahepatic biliary dilatation. Portal venous colla terals. Gallbladder: Prior cholecystectomy. Spleen, Pancreas, and Adrenal Glands: Splenomegaly. Mild peripancreatic fat stranding with slightly decreased. No well-circumscribed peripancreatic fluid collection identified. No evidence of pancreat ic necrosis. Kidneys: No hydronephrosis or obstructing calculus. Punctate nonobstructing right nephrolithiasis . Vasculature: Aortoiliac atherosclerosis. IVC is unremarkable. The portal vein is patent. The proxim al visceral and renal arteries are patent. Stomach: The stomach and duodenum have normal course. Other: No free intraperitoneal air. No free fluid or lymphadenopathy. Mild interval decrease in f at stranding in the region of the cecum which may be related to previous pancreatitis. Pelvis: Bladder: Urinary bladder is unremarkable. Bowel: No dilated loops of large or small bowel. Appendix: Not identified. Pelvis: Prior hysterectomy. IMPRESSION: 1. Persistent mild peripancreatic inflammatory change which is decreased from the compar primo study. Findings could be seen with mild pancreatitis. No pseudocyst identified. 2. Cirrhotic changes of the liver with findings suggesting portal hypertension. Splenomegaly. This exam was performed according to our departmental dose-optimization program, which includes autom ated exposure control, adjustment of the mA and/or kV according to patient size and/or use of iterati ve reconstruction technique. Electronically signed by: Jeyson Sánchez 04/03/2020 1:30 AM INFORMATICS NURSE Due to temporary technical issues with the PACS/Fluency reporting system, reports are being signed by the in house radiologists without review as a courtesy to insure prompt reporting. The interpreting radiologist is fully responsible for the content of the report.
== END 2020-04-03 03:28 | disposition home or self-care (01) ==
LOC: ER 21:55
DX: K85.90 Acute pancreatitis without necrosis or infection, unspecified (principal); Z88.5 Allergy status to narcotic agent; Z85.3 Personal history of malignant neoplasm of breast
CPT/HCPCS: 85025; 80048; 36415; 80076; 81003; 83690; 74177; 96375; 96374; 99284; Q9967; J3010; J2405

== ENCOUNTER 2020-04-16 04:45 | Emergency (ER) | payer OTHER ==
--- OUTSIDE RECORDS SUMMARY | 2020-04-16 04:48 | XMS REPORT | Clinical Summary ---
:1960 Author Organization [facility] Address [address] [place] [address] Care Team Providers Name Role Phone MD [...] 03/23/2020 Amarilys Desouza MD 03/19/2020 Patient Outreach Emi Dubose RN 03/14/2020 - Hospital Encounter General Internal Nakia Cruz MD 03/18/2020 Medicine Jeremy Bullock MD 03/14/2020 Travel after 04/16/2019 Surgical History Surgery Date Site/Laterality Comments HYSTERECTOMY [...] file Not on file Not on file Last Filed Vital Signs Vital Sign Reading Time Taken Comments Blood Pressure 136/64 03/23/2020 7:35 AM [facility] Pulse 77 03/23/2020 7:35 AM [facility] Temperature 36 C (96.8 F) 03/23/2020 7:35 AM [facility] [employer] Respiratory Rate 20 03/23/2020 7:35 AM [facility] [employer] Oxygen Saturation 96% 03/23/2020 7:35 AM [facility] [employer] Inhaled Oxygen Concentration - - Weight 122 kg (269 lb 3 oz) 03/23/2020 6:00 AM [facility] [employer] Height 162.6 cm (5' 4") 03/14/2020 4:30 PM [facility] [employer] Body Mass Index 46.21 03/14/2020 4:30 PM [employer] [employer] Plan of Treatment Health Maintenance Due Date Last Done Comments COVID-19 VACCINE (#1) 1977 CERVICAL CANCER SCREENING 1982 BREAST CANCER SCREENING 2011 COLONOSCOPY SCREENING 2011 SHINGLES VACCINES (#1) 2011 INFLUENZA VACCINE 11/10/2019 01/21/2017 Procedures Procedure Name Priority Date/Time Associated Comments Diagnosis SMEAR REVIEW Routine 03/22/2020 5:15 Results for this AM [employer] procedure are i n the results section. ESTIMATED GFR Routine 03/22/2020 5:15 Results fo r this AM [employer] procedure are i n the results section. AMYLASE LEVEL Routine 03/22/2020 5:15 Results fo r this AM [employer] procedure are i n the results section. LIPASE LEVEL Routine 03/22/2020 5:15 Results for this AM [employer] procedure are i n the results section. PROTHROMBIN TIME WITH Routine 03/22/2020 5:15 Re sults for this INR AM [employer] procedure are i n the results section. PHOSPHORUS LEVEL Routine 03/22/2020 5:15 Results for this AM [employer] procedure are i n the results section. HEPATIC FUNCTION PANEL Routine 03/22/2020 5:15 R esults for this AM [employer] procedure are i n the results section. MAGNESIUM LEVEL Routine 03/22/2020 5:15 Results for this AM [employer] procedure are i n the results section. HC COMPLETE BLD COUNT Routine 03/22/2020 5:15 Re sults for this W/AUTO DIFF AM [employer] procedure are i n the results section. BASIC METABOLIC PANEL Routine 03/22/2020 5:15 Re sults for this AM [employer] procedure are i n the results section. MANUAL DIFFERENTIAL Routine 03/21/2020 4:43 Resu lts for this AM [employer] procedure are i n the results section. ESTIMATED GFR Routine 03/21/2020 4:43 Results fo r this AM [employer] procedure are i n the results section. AMYLASE LEVEL Routine 03/21/2020 4:43 Results fo r this AM [employer] procedure are i n the results section. LIPASE LEVEL Routine 03/21/2020 4:43 Results for this AM [employer] procedure are i n the results section. PROTHROMBIN TIME WITH Routine 03/21/2020 4:43 Re sults for this INR AM [employer] procedure are i n the results section. PHOSPHORUS LEVEL Routine 03/21/2020 4:43 Results for this AM [employer] procedure are i n the results section. HEPATIC FUNCTION PANEL Routine 03/21/2020 4:43 R esults for this AM [employer] procedure are i n the results section. MAGNESIUM LEVEL Routine 03/21/2020 4:43 Results for this AM [employer] procedure are i n the results section. CBC WITH PLATELET AND Routine 03/21/2020 4:43 Re sults for this DIFFERENTIAL AM [employer] procedure are i n the results section. BASIC METABOLIC PANEL Routine 03/21/2020 4:43 Re sults for this AM [employer] procedure are i n the results section. SMEAR REVIEW Routine 03/20/2020 5:20 Results for this AM [employer] procedure are i n the results section. ESTIMATED GFR Routine 03/20/2020 5:20 Results fo r this AM [employer] procedure are i n the results section. AMYLASE LEVEL Routine 03/20/2020 5:20 Results fo r this AM [employer] procedure are i n the results section. LIPASE LEVEL Routine 03/20/2020 5:20 Results for this AM [employer] procedure are i n the results section. PROTHROMBIN TIME WITH Routine 03/20/2020 5:20 Re sults for this INR AM [employer] procedure are i n the results section. PHOSPHORUS LEVEL Routine 03/20/2020 5:20 Results for this AM [employer] procedure are i n the results section. HEPATIC FUNCTION PANEL Routine 03/20/2020 5:20 R esults for this AM [employer] procedure are i n the results section. MAGNESIUM LEVEL Routine 03/20/2020 5:20 Results for this AM [employer] procedure are i n the results section. HC COMPLETE BLD COUNT Routine 03/20/2020 5:20 Re sults for this W/AUTO DIFF AM [employer] procedure are i n the results section. BASIC METABOLIC PANEL Routine 03/20/2020 5:20 Re sults for this AM [employer] procedure are i n the results section. URINALYSIS, AUTOMATED Routine 03/19/2020 12:52 Re sults for this WITH MICROSCOPY PM [employer] procedure ar e in the results section. COVID-19 QUALITATIVE STAT 03/19/2020 11:58 Res ults for this PCR AM [employer] procedure are i n the results section. SMEAR REVIEW Routine 03/19/2020 11:55 Results for this AM [employer] procedure are i n the results section. ESTIMATED GFR Routine 03/19/2020 11:55 Results fo r this AM [employer] procedure are i n the results section. LIPASE LEVEL Routine 03/19/2020 11:55 Results for this AM [employer] procedure are i n the results section. AMYLASE LEVEL Routine 03/19/2020 11:55 Results fo r this AM [employer] procedure are i n the results section. PROTHROMBIN TIME WITH Routine 03/19/2020 11:55 Re sults for this INR AM [employer] procedure are i n the results section. PHOSPHORUS LEVEL Routine 03/19/2020 11:55 Results for this AM [employer] procedure are i n the results section. MAGNESIUM LEVEL Routine 03/19/2020 11:55 Results for this AM [employer] procedure are i n the results section. HEPATIC FUNCTION PANEL Routine 03/19/2020 11:55 R esults for this AM [employer] procedure are i n the results section. HC COMPLETE BLD COUNT Routine 03/19/2020 11:55 Re sults for this W/AUTO DIFF AM [employer] procedure are i n the results section. BASIC METABOLIC PANEL Routine 03/19/2020 11:55 Re sults for this AM [employer] procedure are i n the results section. SMEAR REVIEW Routine 03/18/2020 4:18 Results for this AM [employer] procedure are i n the results section. ESTIMATED GFR Routine 03/18/2020 4:18 Results fo r this AM [employer] procedure are i n the results section. ALPHA FETOPROTEIN Routine 03/18/2020 4:18 Result s for this AM [employer] procedure are i n the results section. AMYLASE LEVEL Routine 03/18/2020 4:18 Results fo r this AM [employer] procedure are i n the results section. LIPASE LEVEL Routine 03/18/2020 4:18 Results for this AM [employer] procedure are i n the results section. PROTHROMBIN TIME WITH Routine 03/18/2020 4:18 Re sults for this INR AM [employer] procedure are i n the results section. PHOSPHORUS LEVEL Routine 03/18/2020 4:18 Results for this AM [employer] procedure are i n the results section. HEPATIC FUNCTION PANEL Routine 03/18/2020 4:18 R esults for this AM [employer] procedure are i n the results section. MAGNESIUM LEVEL Routine 03/18/2020 4:18 Results for this AM [employer] procedure are i n the results section. HC COMPLETE BLD COUNT Routine 03/18/2020 4:18 Re sults for this W/AUTO DIFF AM [employer] procedure are i n the results section. BASIC METABOLIC PANEL Routine 03/18/2020 4:18 Re sults for this AM [employer] procedure are i n the results section. SMEAR REVIEW Routine 03/17/2020 4:15 Results for this AM [employer] procedure are i n the results section. ESTIMATED GFR Routine 03/17/2020 4:15 Results fo r this AM [employer] procedure are i n the results section. LDH Routine 03/17/2020 4:15 Results for this AM [employer] procedure are i n the results section. URIC ACID LEVEL Routine 03/17/2020 4:15 Results for this AM [employer] procedure are i n the results section. PROTHROMBIN TIME WITH Routine 03/17/2020 4:15 Re sults for this INR AM [employer] procedure are i n the results section. PHOSPHORUS LEVEL Routine 03/17/2020 4:15 Results for this AM [employer] procedure are i n the results section. MAGNESIUM LEVEL Routine 03/17/2020 4:15 Results for this AM [employer] procedure are i n the results section. COMPREHENSIVE Routine 03/17/2020 4:15 Results fo r this METABOLIC PANEL AM [employer] procedure ar e in the results section. CBC WITH PLATELET AND Routine 03/17/2020 4:15 Re sults for this DIFFERENTIAL AM [employer] procedure are i n the results section. SMEAR REVIEW Routine 03/16/2020 4:32 Results for this AM [employer] procedure are i n the results section. ESTIMATED GFR Routine 03/16/2020 4:32 Results fo r this AM [employer] procedure are i n the results section. LDH Routine 03/16/2020 4:32 Results for this AM [employer] procedure are i n the results section. URIC ACID LEVEL Routine 03/16/2020 4:32 Results for this AM [employer] procedure are i n the results section. PROTHROMBIN TIME WITH Routine 03/16/2020 4:32 Re sults for this INR AM [employer] procedure are i n the results section. PHOSPHORUS LEVEL Routine 03/16/2020 4:32 Results for this AM [employer] procedure are i n the results section. MAGNESIUM LEVEL Routine 03/16/2020 4:32 Results for this AM [employer] procedure are i n the results section. COMPREHENSIVE Routine 03/16/2020 4:32 Results fo r this METABOLIC PANEL AM [employer] procedure ar e in the results section. CBC WITH PLATELET AND Routine 03/16/2020 4:32 Re sults for this DIFFERENTIAL AM [employer] procedure are i n the results section. SMEAR REVIEW Routine 03/15/2020 4:45 Results for this AM [employer] procedure are i n the results section. HEMOGLOBIN A1C Routine 03/15/2020 4:45 Results f or this AM [employer] procedure are i n the results section. PROTHROMBIN TIME WITH Routine 03/15/2020 4:45 Re sults for this INR AM [employer] procedure are i n the results section. CBC WITH PLATELET AND Routine 03/15/2020 4:45 Re sults for this DIFFERENTIAL AM [employer] procedure are i n the results section. BILIRUBIN DIRECT Routine 03/15/2020 4:00 Results for this AM [employer] procedure are i n the results section. ESTIMATED GFR Routine 03/15/2020 4:00 Results fo r this AM [employer] procedure are i n the results section. LDH Routine 03/15/2020 4:00 Results for this AM [employer] procedure are i n the results section. URIC ACID LEVEL Routine 03/15/2020 4:00 Results for this AM [employer] procedure are i n the results section. T4 Routine 03/15/2020 4:00 Results for this AM [employer] procedure are i n the results section. THYROID STIMULATING Routine 03/15/2020 4:00 Resu lts for this HORMONE AM [employer] procedure are i n the results section. PHOSPHORUS LEVEL Routine 03/15/2020 4:00 Results for this AM [employer] procedure are i n the results section. MAGNESIUM LEVEL Routine 03/15/2020 4:00 Results for this AM [employer] procedure are i n the results section. COMPREHENSIVE Routine 03/15/2020 4:00 Results fo r this METABOLIC PANEL AM [employer] procedure ar e in the results section. CT ABDOMEN WWO Routine 03/14/2020 9:04 Results f or this CONTRAST PELVIS W PM [employer] procedure are in CONTRAST the results section. SMEAR REVIEW Routine 03/14/2020 5:20 Results for this PM [employer] procedure are i n the results section. ESTIMATED GFR Routine 03/14/2020 5:20 Results fo r this PM [employer] procedure are i n the results section. LACTIC ACID LEVEL Routine 03/14/2020 5:20 Result s for this PM [employer] procedure are i n the results section. PROTHROMBIN TIME WITH Routine 03/14/2020 5:20 Re sults for this INR PM [employer] procedure are i n the results section. PHOSPHORUS LEVEL Routine 03/14/2020 5:20 Results for this PM [employer] procedure are i n the results section. MAGNESIUM LEVEL Routine 03/14/2020 5:20 Results for this PM [employer] procedure are i n the results section. LIPASE LEVEL Routine 03/14/2020 5:20 Results for this PM [employer] procedure are i n the results section. HC COMPLETE BLD COUNT Routine 03/14/2020 5:20 Re sults for this W/AUTO DIFF PM [employer] procedure are i n the results section. COMPREHENSIVE Routine 03/14/2020 5:20 Results fo r this METABOLIC PANEL PM [employer] procedure ar e in the results section. COVID-19 QUALITATIVE Routine 03/14/2020 4:30 Res ults for this PCR PM [employer] procedure are i n the results section. after 04/16/2019 Results Smear review (03/22/2020 5:15 AM [employer])Only the most recent of8 resultswithin the time period is included. Platelet slide review Mkd decreased (A) [facility] Anisocytosis Moderate [facility] Polychromasia Moderate [facility] Ovalocytes Moderate [facility] Specimen Plasma Performing Organization Address City/State/ZIP Code Phon e Number [facility] DEPARTMENT OF PATHOLOGY AND [address] [facility] [place], [place] [address] [address] Estimated GFR (03/22/2020 5:15 AM [employer])Only the most recent of9 resultswithin the time period is included. [facility] Estimated GFR >=90 mL/min/1.73 [facility] Comment: m2 HOSPITAL Catergory Units Interpretation G1 [...] in 2014. Specimen Plasma Performing Organization Address City/[facility] Phon e Number [facility] DEPARTMENT OF PATHOLOGY AND [address] [place], [place] [address] [address] [address] Prothrombin time with INR (03/22/2020 5:15 AM [employer])Only the most recent of9 resultswithin the time period is included. [facility] Prothrombin time 16.3 (H) 11.5 - 14.5 [facility] INR 1.3 BL[facility]T Comment: ANABELLA The International Normalized Ratio (INR) is a [facility] HOSPITAL monitoring tool for patients who are stable on oral anticoagulant therapy. An INR of 2.0-3.0 is suggested for deep vein thrombosis/pulmonary embolism. Specimen Blood Performing Organization Address City/[facility] Phon e Number [facility] DEPARTMENT OF PATHOLOGY AND [address] [place] [address] [address] CBC with platelet and differential (03/22/2020 5:15 AM [employer])Only the most recent of9 resultswithin the time period is included. [facility] WBC 1.89 (L) 4.50 - 11.00 [facility] k/uL [facility] RBC 3.21 (L) 4.20 - 5.50 [facility] m/[facility] HGB 9.3 (L) 12.0 - 16.0 [facility] g/dL [facility] HCT 29.9 (L) 37.0 - 47.0 % [facility] MCV 93.1 82.0 - 100.0 [facility] MCH 29.0 27.0 - 34.0 pg [facility] MCHC 31.1 31.0 - 37.0 [facility] g/dL [facility] RDW - SD 52.6 37.0 - 55.0 fL [facility] MPV 11.3 8.8 - 13.2 fL [facility] Platelet count 45 (L) 150 - 400 k/uL [facility] Nucleated RBC 0.00 /100 WBC [facility] Neutrophils 57.7 39.0 - 69.0 % [facility] Lymphocytes 23.3 (L) 25.0 - 45.0 % [facility] Monocytes 14.8 (H) 0.0 - 10.0 % [facility] Eosinophils 3.7 0.0 - 5.0 % [facility] Basophils 0.5 0.0 - 1.0 % [facility] Immature granulocytes 0.0Comment: 0.0 - 1.0 % [facility] "[facility] granulocytes" (promyelocytes , myelocytes, metamyelocytes ) Specimen Plasma Performing Organization Address City/[facility] Phon e Number [facility] DEPARTMENT OF PATHOLOGY AND [address] [place] [phone] [address] Phosphorus level (03/22/2020 5:15 AM [employer])Only the most recent of9 resultswithin the time period is included. Pathologist Sig nature Phosphorus 2.6 2.4 - 4.5 mg/dL [facility] Specimen Plasma Performing Organization Address City/[facility] Phon e Number [facility] DEPARTMENT OF PATHOLOGY AND [address] [place] [address] [phone] [address] Magnesium level (03/22/2020 5:15 AM [employer])Only the most recent of9 resultswithin the time period is included. Pathologist Sig nature Magnesium 1.9 1.6 - 2.6 mg/dL [facility] Specimen Plasma Performing Organization Address [facility] Phon e Number [facility] DEPARTMENT OF PATHOLOGY AND [address] [place], [place] [address] [address] [place] [address] Lipase level (03/22/2020 5:15 AM [employer])Only the most recent of6 resultswithin the time period is included. Pathologist Sig nature Lipase 94 (H) 13 - 60 U/L [facility] Specimen Plasma Performing Organization Address City/[facility] Phon e Number [facility] DEPARTMENT OF PATHOLOGY AND [address] [place] [address] [phone] [address] Amylase level (03/22/2020 5:15 AM [employer])Only the most recent of5 resultswithin the time period is included. Pathologist Sig nature Amylase 59 28 - 100 U/L [facility] Specimen Plasma Performing Organization Address [facility] Phon e Number [facility] DEPARTMENT OF PATHOLOGY AND [address] [place] [address] [phone] [address] Hepatic function panel (03/22/2020 5:15 AM [employer])Only the most recent of5 results within the time period is included. Albumin 2.7 (L) 3.5 - 5.0 [facility] g/dL [facility] Total bilirubin 1.1 0.0 - 1.2 [facility] mg/dL [facility] Bilirubin direct 0.4 (H) 0.0 - 0.3 [facility] mg/dL [facility] Alkaline phosphatase 114 (H) 35 - 104 U/L [facility] Protein 6.0 (L) 6.3 - 8.3 [facility] Comment: g/dL [facility] [place] 4.6-7.0 g/dL 1 week 4.4-7.6 g/dL 7 months-1year 5.1-7.3 g/dL 1-2 years 5.6-7.5 g/dL >3 years 6.0-8.0 g/dL 18-150 6.3-8.3 g/dL ALT 31 5 - 50 U/L [facility] AST 39 (H) 10 - 35 U/L [facility] Specimen Plasma Performing Organization Address [facility] Phon e Number [facility] DEPARTMENT OF PATHOLOGY AND [address] [place] [address] [phone] [address] Basic metabolic panel (03/22/2020 5:15 AM [employer])Only the most recent of5 results within the time period is included. Pathologist Sig nature Sodium 139 135 - 148 mEq/L [facility] Potassium 3.9 3.5 - 5.0 mEq/L [facility] Chloride 106 98 - 112 mEq/L [facility] CO2 27 24 - 31 mEq/L [facility] Anion gap 6@ANIO (L) 7 - 15 mEq/L [facility] BUN 9 6 - 20 mg/dL [facility] Creatinine 0.54 0.50 - 0.90 mg/dL [facility] Glucose 145 (H) 65 - 99 mg/dL [facility] Calcium 8.2 (L) 8.3 - 10.2 mg/dL [facility] Specimen Plasma Performing Organization Address City/[facility] Phon e Number [facility] DEPARTMENT OF PATHOLOGY AND [address] [place] [phone] [facility] [address] [address] Manual differential (03/21/2020 4:43 AM [employer] E[employer]OR) Manual differential PERFORMED [facility] Neutrophils 59.0 39.0 - 69.0 [facility] Lymphocytes 25.0 25.0 - 45.0 [facility] Monocytes 10.0 0.0 - 10.0 % [facility] Eosinophils 6.0 (H) 0.0 - 5.0 % [facility] Basophils 0.0 0.0 - 1.0 % [facility] Metamyelocytes 0 % [facility] Promyelocytes 0 % [facility] Platelet slide review Mkd decreased (A) [facility] Anisocytosis Moderate [facility] Polychromasia Moderate [facility] Ovalocytes Moderate [facility] Specimen Plasma Performing Organization Address City/[facility] Phon e Number [facility] DEPARTMENT OF PATHOLOGY AND [address] [place], [place] [phone] [address] [address] Urinalysis, automated with microscopy (03/19/2020 12:52 PM [employer] ERECTOR) Pathologist Sig nature Color, UA Straw [facility] Appearance, UA Clear [facility] Specific gravity, UA 1.015 1.001 - 1.035 [facility] pH, UA 8.0 5.0 - 8.5 [facility] Protein, UA Negative Negative [facility] Glucose, UA Negative Negative [facility] Ketones, UA Negative Negative [facility] Bilirubin, UA Negative Negative [facility] Blood, UA Negative Negative [facility] Nitrite, UA Negative Negative [facility] Urobilinogen, UA <2.0 <2.0 [facility] Leukocyte esterase, Negative Negative [facility] Epithelial cells, UA 2 /HPF [facility] WBC, UA 2 0 - 4 /HPF [facility] RBC, UA <1 0 - 5 /HPF [facility] Bacteria, UA None seen None seen [facility] Yeast, UA None seen [facility] Yeast with None seen [facility] pseudohyphae, [facility] Specimen Urine Performing Organization Address [facility] Phon e Number [facility] DEPARTMENT OF PATHOLOGY AND [address] [place] [address] COVID-19 qualitative PCR (03/19/2020 11:58 AM SCAFFOLD ERECTOR)Only the most recent of2 resultswithin the time period is included. Interpretation Negative results do not prec lude 2019-nCoV infection and should not be used as the sole basis for treatment or other patient management decisions. Negative results must be combined with clinical observations, patient history, and epidemiological BLUNT information. [facility] COVID-19 qualitative Not-Detected Not-Detecte BLUNT PCR result d [facility] COVID-19 qualitative See link below for BLUNT PCR PDF Lab [facility] ReportComment: Case HOSPITAL Number: [id number] Specimen Nasal swab Performing Organization Address [facility] Phon e Number [facility] DEPARTMENT OF PATHOLOGY AND [address] [place] [address] Alpha fetoprotein (03/18/2020 4:18 AM SCAFFOLD ERECTOR) Alpha fetoprotein 5.3 0.0 - 8.3 BLUNT Comment: ng/mL ANABELLA The Luz 8000 AFP immunoassay was used. HOSPITAL Results obtained with different assay methods or kits should not be used interchangeably and may be differen t. Specimen Serum Performing Organization Address [facility] Phon e Number [facility] DEPARTMENT OF PATHOLOGY AND [address] [place] [address] [phone] [address] Uric acid level (03/17/2020 4:15 AM SCAFFOLD ERECTOR)Only the most recent of3 resultswithin the time period is included. Pathologist Sig nature Uric acid 4.2 2.4 - 5.7 mg/dL [facility] L Specimen Plasma Performing Organization Address [facility] Phon e Number [facility] DEPARTMENT OF PATHOLOGY AND [address] [place] [address] [phone] [address] LDH (03/17/2020 4:15 AM SCAFFOLD ERECTOR)Only the most recent of3 resultswithin the time period is included. Pathologist Sig nature LDH 243 (H) 87 - 225 U/L [facility] Specimen Plasma Performing Organization Address [facility] Phon e Number [facility] DEPARTMENT OF PATHOLOGY AND [address] [place] [address] [phone] [address] Comprehensive metabolic panel (03/17/2020 4:15 AM SCAFFOLD ERECTOR)Only the most recent of4 resultswithin the time period is included. Sodium 140 135 - 148 [facility] mEq/L [facility] Potassium 4.0 3.5 - 5.0 [facility] mEq/L [facility] Chloride 106 98 - 112 [facility] mEq/L [facility] CO2 27 24 - 31 mEq/L [facility] Anion gap 7@ANIO 7 - 15 mEq/L [facility] BUN 9 6 - 20 mg/dL [facility] Creatinine 0.63 0.50 - 0.90 [facility] mg/dL [facility] Glucose 122 (H) 65 - 99 mg/dL [facility] Calcium 8.1 (L) 8.3 - 10.2 [facility] mg/dL [facility] Protein 5.5 (L) 6.3 - 8.3 [facility] Comment: g/dL [facility] [place] 4.6-7.0 g/dL 1 week 4.4-7.6 g/dL 7 months-1year 5.1-7.3 g/dL 1-2 years 5.6-7.5 g/dL >3 years 6.0-8.0 g/dL 18-150 6.3-8.3 g/dL Albumin 2.6 (L) 3.5 - 5.0 [facility] g/dL [facility] A/G ratio 0.9 0.7 - 3.8 [facility] Alkaline phosphatase 119 (H) 35 - 104 U/L [facility] AST 36 (H) 10 - 35 U/L [facility] ALT 37 5 - 50 U/L [facility] Total bilirubin 1.0 0.0 - 1.2 [facility] mg/dL HOSPITAL Specimen Plasma Performing Organization Address [facility] Phon e Number [facility] DEPARTMENT OF PATHOLOGY AND [address] [place] [phone] Hemoglobin A1c (03/15/2020 4:45 AM SCAFFOLD ERECTOR) Hemoglobin A1C 4.6 4.0 - 5.6 % [facility] Comment: HOSPITAL HbA1c cutoffs for diagnosing diabetes: [...] 1 diabetes. Specimen Blood Performing Organization Address [facility] Phon e Number [facility] DEPARTMENT OF PATHOLOGY AND [address] [place] [address] Thyroid stimulating hormone (03/15/2020 4:00 AM SCAFFOLD ERECTOR) Pathologist Sig nature TSH 1.41 0.27 - 4.20 uIU/mL [facility] Specimen Plasma Performing Organization Address [facility] Phon e Number [facility] DEPARTMENT OF PATHOLOGY AND [address] [place] [address] [phone] [address] T4 (03/15/2020 4:00 AM SCAFFOLD ERECTOR) Pathologist Sig nature T4 6.9 4.5 - 11.7 ug/dL [facility] Specimen Plasma Performing Organization Address [facility]/ZIP Code Phon e Number [facility] DEPARTMENT OF PATHOLOGY AND [address] [place], [place] [phone] [id number] [place] [address] Bilirubin direct (03/15/2020 4:00 AM SCAFFOLD ERECTOR) Pathologist Sig nature Bilirubin direct 0.5 (H) 0.0 - 0.3 mg/dL [facility] Specimen Plasma Performing Organization Address [facility] Phon e Number [facility] DEPARTMENT OF PATHOLOGY AND [address] [place], [place] [phone] [facility] [address] [place] [phone] Abdomen WWO Contrast, Pelvis W Contrast (03/14/2020 9:04 PM SCAFFOLD ERECTOR) Specimen Narrative Performed At CT ABDOMEN WWO [...] is seen of right renal collecting system. [facility]-[id number] Procedure Note Interface, Radiology Results Incoming - 03/14/2020 11:[address] ABDOMEN WWO CONTRAST PELVIS W CONTRAST [...] is seen of right renal collecting system. 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 Sig nature Lactic acid 1.5 0.5 - 2.2 mmol/L [facility] Specimen Blood Performing Organization Address [facility]/ZIP Code Phon e Number [facility] DEPARTMENT OF PATHOLOGY AND [address] [place] [phone] [facility]OMIC MEDICINE [facility] [address] [place] [phone] after 04/16/2019 Insurance Payer Benefit Plan / Subscriber ID Effective Dates Phone Addre ss Type Group [employer] [facility] [id number] 2019-[employer] Exchange CHOICE EXCHANGE EXCHANGE t [facility] [id number] 2017-[employer] PPO PLAN t Advance Directives For more information, please contact: [phone] Type Date 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
--- OUTSIDE RECORDS SUMMARY | 2020-04-16 04:48 | XMS REPORT | Clinical Summary ---
:1960 Author Organization [facility] Address [address] [place] [address] Care Team Providers Name Role Phone Usman [...] 10/01/2021 10/01/2018, 08/07/2016 Results Not on fileafter 04/16/2019 Advance Directives For more information, please contact: [phone] Code Status Date Activated Date Inactivated Comments Full Code 09/30/2018 8:45 PM 10/03/2018 7:37 PM This code status was determined by: Patient
--- OUTSIDE RECORDS SUMMARY | 2020-04-16 04:50 | XMS REPORT | Continuity of Care Document ---
:1960 Author Organization [facility] t Address [address] [place] [address] Care Team Providers Name Role Phone Christineyazan Mary Primary Care Physician Daniella REYES Attending Clinician [...] Expiration Date Sour ce Number [facility] [id number] 2019 [place] CHO[place] 00:00:00 [facility] EX[facility] MARKETPLACExxxxxx [id number] esentExchange Problems Condition Condition Condition Status Onset Resolution Last Treating Co mments Source Name Details Category Date Date Treatment Clinician Date Pancreatit Pancreatit Disease Active 2019-04 H lionel is due to is due to 05-20 Meth dimitri common common 00:00: st bile duct bile duct 00 stone stone 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 2- Method i 00:00: st 00 Acute Acute Disease Active 2019-04 Eva pancreatit pancreatit - Me thodi is without is without 00:00: [...] Morphine Propensi Active Other (See 2019-04 Tightness Eva ty to Comments) 204 of throat Meth dimitri adverse 00:00: st [...] Date Stop Date Quantity Comments Source History [employer] Meth odist Alcohol Std Drinks History [employer] Meth odist Alcohol Binge Sex Assigned At [facility] ethodist Tobacco use and 2020-03-19 2020-03-19 Never used [facility] ethodist exposure 00:00:00 00:00:00 Alcohol intake 2020-03-19 2020-03-19 Lifetime [facility] 00:00:00 00:00:00 non-drinker (finding) History SDOH 2020-03-19 2020-03-19 1 Nishant Meth odist Alcohol Frequency 00:00:00 00:00:00 Smoking Status Start Date Stop Date Source Never smoker Nishant ambriz Medications Ordered Filled Start Stop Current Ordering Indication Dosage Frequency Signature Comments Components Source Medication Medication Date Date Medication? Clinician (SIG) Name Name lactulose 2019-04 Yes 20g QD Take 20 g Bárbara ston 10 gram/15 2-13 by mouth Metho di mL (15 mL) 15:45: daily. st solution 33 pancrelipas 2019-04- Yes 1{capsu Q.[id number] Take 1 Dillard e, 2-13 04-22 le} [id number] capsule by Mt hussein lipase-prot 00:00: 23:[address] ease-amylas 00 :00 (three) e, (CREOND) times a 12,000-38,0 day with 00 -60,000 meals for unit 30 days. capsule,del ayed release(DR/ EC) capsule ibuprofen 2019-04- No 400mg Take 400 [place] (ADVIL) 200 2-08 12-08 mg by Method i MG tablet 16:34: 00:[address] 43 :00 once. HYDROcodone 2019-04- No acute pain 1{tbl} Q6H Take 1 Eva -acetaminop 2-08 12-15 tablet by [facility] hen (NORCO) 00:00: 23:[address] 5-325 mg 00 :00 every 6 per tablet (six) hours as needed for moderate pain for up to 7 days .acute pain. Max Daily Amount: 4 tablets Meloxicam Meloxicam 2020- No Gm [address] [facility] 00[facility]00 [facility] lactulose Yes 10g Q.5D Take [...] Source Systolic blood 2020-03-23 07:35:03 136 mm[Hg] [place] pressure Diastolic blood 2020-03-23 07:35:03 64 mm[Hg] [place] [facility] pressure Heart rate 2020-03-23 07:35:03 77 /min Nishant Chaidez Body temperature 2020-03-23 07:35:03 36 Sandee [place] [employer] Respiratory rate 2020-03-23 07:35:03 20 /min Chelyl muñiz Buddhism Oxygen saturation in 2020-03-23 07:35:03 96 /min Nishant Chaidez Arterial blood by Pulse oximetry Body weight 2020-03-23 06:00:00 122.103 kg Nishant Chaidez BMI 2020-03-23 06:00:00 46.21 kg/m2 Nishant Chaidez Body height 2020-03-14 16:30:50 162.6 cm Nishant Chaidez Procedures Procedure Date / Time Performed Performing Clinician Formerly [facility] e BASIC METABOLIC PANEL 2020-03-22 05:15:00 Dinakar, Jeremy Chaidez Deo HC COMPLETE BLD COUNT 2020-03-22 05:15:00 Dinakar, Jeremy jefferson Buddhism W/AUTO DIFF Deo MAGNESIUM LEVEL 2020-03-22 05:15:00 Dinakar, Jeremy Tanner odist Deo HEPATIC FUNCTION PANEL 2020-03-22 05:15:00 Dinakar, Jeremy Baez on Buddhism Deo PHOSPHORUS LEVEL 2020-03-22 05:15:00 Dinakar, Jeremy Desouza PROTHROMBIN TIME WITH INR 2020-03-22 05:15:00 Dinakar, Jeremy wilburn Buddhism Deo LIPASE LEVEL 2020-03-22 05:15:00 Dinakar, Jeremy Childersra AMYLASE LEVEL 2020-03-22 05:15:00 Dinakar, Jeremy Childersra ESTIMATED GFR 2020-03-22 05:15:00 Dinakar, Jeremy Desouza SMEAR REVIEW 2020-03-22 05:15:00 Dinakar, Jeremy ayon Deo BASIC METABOLIC PANEL 2020-03-21 04:43:00 Dinakar, Jeremy Desouza CBC WITH PLATELET AND 2020-03-21 04:43:00 Dinakar, Jeremy jefferson Buddhism DIFFERENTIAL Deo MAGNESIUM LEVEL 2020-03-21 04:43:00 Dinakar, Jeremy Childersra HEPATIC FUNCTION PANEL 2020-03-21 04:43:00 Dinakar, Jeremy shelton Buddhism Deo PHOSPHORUS LEVEL 2020-03-21 04:43:00 Dinakar, Jeremy Desouza PROTHROMBIN TIME WITH INR 2020-03-21 04:43:00 Dinakar, Jeremy wilburn Buddhism Deo LIPASE LEVEL 2020-03-21 04:43:00 Dinakar, Jeremy Tanner odist Deo AMYLASE LEVEL 2020-03-21 04:43:00 Dinakar, Jeremy Tanner odist Deo ESTIMATED GFR 2020-03-21 04:43:00 Dinakar, Jeremy ayon Deo MANUAL DIFFERENTIAL 2020-03-21 04:43:00 Dinakar, Jeremy Chaidez Deo BASIC METABOLIC PANEL 2020-03-20 05:20:00 Dinakar, Jeremy jefferson Buddhism Deo HC COMPLETE BLD COUNT 2020-03-20 05:20:00 Dinakar, Jeremy jefferson Buddhism W/AUTO DIFF Deo MAGNESIUM LEVEL 2020-03-20 05:20:00 Dinakar, Jeremy Tanner odist Deo HEPATIC FUNCTION PANEL 2020-03-20 05:20:00 Dinakar, Jeremy Baez on Buddhism Deo PHOSPHORUS LEVEL 2020-03-20 05:20:00 Dinakar, Jeremy Dillard Met hodnohelia Childersra PROTHROMBIN TIME WITH INR 2020-03-20 05:20:00 Dinakar, Jeremy wilburn Buddhism Deo LIPASE LEVEL 2020-03-20 05:20:00 Dinakar, Jeremy Tanner odist Deo AMYLASE LEVEL 2020-03-20 05:20:00 Dinakar, Jeremy Tanner odist Deo ESTIMATED GFR 2020-03-20 05:20:00 Dinakar, Jeremy Tanner odist Deo SMEAR REVIEW 2020-03-20 05:20:00 Dinakar, Jeremy Tanner odist Deo URINALYSIS, AUTOMATED 2020-03-19 12:52:00 Dinakar, Jeremy jefferson Buddhism WITH MICROSCOPY Deo COVID-19 QUALITATIVE PCR 2020-03-19 11:58:00 Dinakar, Jeremy hopkins Buddhism Deo BASIC METABOLIC PANEL 2020-03-19 11:55:00 Dinakar, Jeremy jefferson Buddhism Deo HC COMPLETE BLD COUNT 2020-03-19 11:55:00 Dinakar, Jeremy jefferson Buddhism W/AUTO DIFF Deo HEPATIC FUNCTION PANEL 2020-03-19 11:55:00 Dinakar, Jeremy Baez on Buddhism Deo MAGNESIUM LEVEL 2020-03-19 11:55:00 Dinakar, Jeremy Tanner odist Deo PHOSPHORUS LEVEL 2020-03-19 11:55:00 Dinakar, Jeremy Dillard Met hodnohelia Deo PROTHROMBIN TIME WITH INR 2020-03-19 11:55:00 Dinakar, Jeremy wilburn Buddhism Deo AMYLASE LEVEL 2020-03-19 11:55:00 Dinakar, Jeremy Tanner odist Deo LIPASE LEVEL 2020-03-19 11:55:00 Dinakar, Jeremy [facility] Meth odist Deo ESTIMATED GFR 2020-03-19 11:55:00 Dinakar, Jeremygenevieve Tanner odist Deo SMEAR REVIEW 2020-03-19 11:55:00 Dinakar, Jeremy Nishant Tanner odist Deo BASIC METABOLIC PANEL 2020-03-18 04:18:00 Dinakar, Jeremy jefferson Buddhism Deo HC COMPLETE BLD COUNT 2020-03-18 04:18:00 Dinakar, Jeremy jefferson Buddhism W/AUTO DIFF Deo MAGNESIUM LEVEL 2020-03-18 04:18:00 Dinakar, Jeremy Dillard Meth odist Deo HEPATIC FUNCTION PANEL 2020-03-18 04:18:00 Dinakar, Jeremy Baez on Buddhism Deo PHOSPHORUS LEVEL 2020-03-18 04:18:00 Dinakar, Jeremy Frias hodnohelia Deo PROTHROMBIN TIME WITH INR 2020-03-18 04:18:00 Dinakar, Jeremy wilburn Buddhism Deo LIPASE LEVEL 2020-03-18 04:18:00 Dinakar, Jeremy Tanner odist Deo AMYLASE LEVEL 2020-03-18 04:18:00 Dinakar, Jeremygenevieve Tanner odist Deo ALPHA FETOPROTEIN 2020-03-18 04:18:00 Yefriuria Myra Chaidez ESTIMATED GFR 2020-03-18 04:18:00 Kai Myra [facility] thodist SMEAR REVIEW 2020-03-18 04:18:00 Kai Myra [facility] CBC WITH PLATELET AND 2020-03-17 04:15:00 Nakia Cruz Buddhism DIFFERENTIAL COMPREHENSIVE METABOLIC 2020-03-17 04:15:00 Nakia Cruz Buddhism PANEL MAGNESIUM LEVEL 2020-03-17 04:15:00 Nakia Cruz Meth odist PHOSPHORUS LEVEL 2020-03-17 04:15:00 Nakia Cruz Met hodist PROTHROMBIN TIME WITH INR 2020-03-17 04:15:00 Nakia Cruz Buddhism URIC ACID LEVEL 2020-03-17 04:15:00 Nakia Cruz Meth odist LDH 2020-03-17 04:15:00 Nakia Cruz Meth odist ESTIMATED GFR 2020-03-17 04:15:00 Nakia Cruz Meth odist SMEAR REVIEW 2020-03-17 04:15:00 Nakia Cruz Meth odist CBC WITH PLATELET AND 2020-03-16 04:32:00 NancyVigneshNakiaanita Ke[place] n Buddhism DIFFERENTIAL COMPREHENSIVE METABOLIC 2020-03-16 04:32:00 NancyVigneshNakia Chelly muñiz Buddhism PANEL MAGNESIUM LEVEL 2020-03-16 04:32:00 Nakia Cruz Meth odist PHOSPHORUS LEVEL 2020-03-16 04:32:00 NancyNakia Met hodist PROTHROMBIN TIME WITH INR 2020-03-16 04:32:00 NancyNakia Aurelio [place] Buddhism URIC ACID LEVEL 2020-03-16 04:32:00 Nakia Cruz Meth odist LDH 2020-03-16 04:32:00 Nakia Cruz Meth odist ESTIMATED GFR 2020-03-16 04:32:00 Nakia Cruz Meth odist SMEAR REVIEW 2020-03-16 04:32:00 NancyNakia Meth odist CBC WITH PLATELET AND 2020-03-15 04:45:00 Nancy Nakia Rishabh n Buddhism DIFFERENTIAL PROTHROMBIN TIME WITH INR 2020-03-15 04:45:00 NancyNakia Aurelio issaton Buddhism HEMOGLOBIN A1C 2020-03-15 04:45:00 Nakia Cruz Meth odist SMEAR REVIEW 2020-03-15 04:45:00 Nakia Cruz Meth odist COMPREHENSIVE METABOLIC 2020-03-15 04:00:00 Nakia Cruz Buddhism PANEL MAGNESIUM LEVEL 2020-03-15 04:00:00 NancyNakia Meth odist PHOSPHORUS LEVEL 2020-03-15 04:00:00 NancyNakia hodist THYROID STIMULATING 2020-03-15 04:00:00 NancyNakia Dillard Buddhism HORMONE T4 2020-03-15 04:00:00 Nakia Cruz Meth odist URIC ACID LEVEL 2020-03-15 04:00:00 Nakia Cruz Meth odist LDH 2020-03-15 04:00:00 Nakia Cruz Meth odist ESTIMATED GFR 2020-03-15 04:00:00 NancyNakia Meth odist BILIRUBIN DIRECT 2020-03-15 04:00:[address] ABDOMEN WWO CONTRAST 2020-03-14 21:04:21 Nakia Cruz Buddhism PELVIS W CONTRAST COMPREHENSIVE METABOLIC 2020-03-14 17:20:00 Nakia Cruz Buddhism PANEL HC COMPLETE BLD COUNT 2020-03-14 17:20:00 NancyVigneshNakia Rishabh jefferson Buddhism W/AUTO DIFF LIPASE LEVEL 2020-03-14 17:20:00 NancyNakia Meth odist MAGNESIUM LEVEL 2020-03-14 17:20:00 NancyNakia Meth odist PHOSPHORUS LEVEL 2020-03-14 17:20:00 Nakia Cruz Met usha PROTHROMBIN TIME WITH INR 2020-03-14 17:20:00 NancyNakia Aurelio Chaidez LACTIC ACID LEVEL 2020-03-14 17:20:00 Nakia Cruz Me thodist ESTIMATED GFR 2020-03-14 17:20:00 Nakia Cruz Meth odist SMEAR REVIEW 2020-03-14 17:20:00 Nakia Cruz Meth odist COVID-19 QUALITATIVE PCR 2020-03-14 16:30:00 NancyNakia Bárbara Chaidez Plan of Care Planned Activity Planned Date Details Comments Source Future Scheduled 2021-10-[address] [facility] Test 00:00:00 (procedure) [code = [facility] [id number]] Future Scheduled 2019-12-[address] [facility] - Test 00:00:00 (#1) [code = [facility] INFLUENZA VACCINE (#1)] Future Scheduled 2019-11-10 INFLUENZA VACCINE [place] [facility] Test 00:00:00 [code = INFLUENZA VACCINE] Future Scheduled 2011 BREAST CANCER Eva [facility]odist Test 00:00:00 SCREENING [code = BREAST CANCER SCREENING] Future Scheduled 2011 COLONOSCOPY SCREENING [place] [facility] Test 00:00:00 [code = COLONOSCOPY SCREENING] Future Scheduled 2011 SHINGLES VACCINES [place] [facility] Test 00:00:00 (#1) [code = SHINGLES VACCINES (#1)] Future Scheduled [address] [facility] Test 00:[facility] cervix (procedure) [code = 887836503] Future Scheduled 1982 Screening for [facility] Test 00:00:00 malignant neoplasm of cervix (procedure) [code = 832875890] Future Scheduled 1977 COVID-19 VACCINE (#1) [place] [facility] Test 00:00:00 [code = COVID-19 VACCINE (#1)] Future Scheduled 1961 Scre[facility] - Test 00:00:00 [facility] breast (procedure) [code = 661695271] Future Scheduled [address] [facility] - Test 00:00:00 malignant neoplasm of [facility] colon (procedure) [code = 974259484] Encounters Start End Encounter Admission Attending Care Care Encounter Source Date/Time Date/Time Type Type Clinicians Facility Department ID 2020-03-19 2020-03-23 Inpatient [facility] [id number] Eva 00:00:00 00:00:00 JEREMY 742 Method i 2020-03-14 2020-03-18 Inpatient [facility] [id number] Eva 00:00:00 00:00:00 JEREMY 157 Method i 2020-02-13 2020-02-13 Laboratory Lab, [facility] [id number] 10:22:10 10:42:10 Only Fam [facility] [id number] [place] [id number] Professio [id number] nal 044 Office [address] One 2019-09-28 2019-09-28 [facility] [id number] 09:00:00 09[facility] ent Clinics 2019-09-18 2019-09-18 [facility] [id number] 09:30:00 09:30:00 [facility] ent Clinics 2019-08-14 2019-08-14 Transition Jocelyne Alexandra [id number] 00:00:00 00:00:00 of Care Jovanny Sotelo [id number] [place] [id number] [id number] 2019-08-10 2019-08-11 [facility] [id number] 02:55:00 16:09:00 Encounter Wes Amin [id number] [place] 4.2.7.2.686 [place] [id number] Results Test Description Test Time Test Comments Results Result Comments Source Smear review 2020-03-22 09:52:20 Test Item Value Reference Range Interpretation Comme nts Platelet slide review (test code = 87239-4) Mkd decreased A Anisocytosis (test code = 702-1) Moderate Polychromasia (test code = 82688-0) Moderate Ovalocytes (test code = 774-0) Moderate Lab Interpretation (test code = 41717-5) Abnormal [facility] [id number] 06:34:17 Test Item Value Reference Range Interpretation Comments Sodium (test code = 2951-2) 139 135- 148 mEq/L Potassium (test code = 2823-3) 3.9 3.5- 5.0 mEq/L Chloride (test code = 2075-0) 106 98- 112 mEq/L CO2 (test code = 2027-9) 27 24- 31 mEq/L Anion gap (test code = 13576-1) 6@ANIO 7- 15 mEq/L L BUN (test code = 3094-0) 9 mg/dL 6-20 Creatinine (test code = 2160-0) 0.54 mg/dL 0.5-0.9 Glucose (test code = 2345-7) 145 mg/dL 65-99 H Calcium (test code = 08860-6) 8.2 mg/dL 8.3-10.2 L Lab Interpretation (test code = Abnormal 06737-3) Dillard MethodistHepatic function [id number] 06:34:17 Test Item Value Reference Range Interpretation Comments Albumin (test code = 2.7 g/dL 3.5-5 L 1750-) Total bilirubin (test 1.1 mg/dL 0-1.2 code = 1974-) Bilirubin direct (test 0.4 mg/dL 0-0.3 H code = 1967-7) Alkaline phosphatase 114 U/L 35-104 H (test code = 6768-6) Protein (test code = 6.0 g/dL 6.3-8.3 L -[place] 2885-2) 4.6-7.0 g /dL1 week 4.4-7.6 g/dL 7 months-1year 5.1-7.3 g/dL 1-2 years 5.6-7.5 g/dL>3 years 6.0-8.0 g/qG95-055 6.3-8. 3 g/dL ALT (test code = 1742-6) 31 U/L 5-50 AST (test code = 1920-8) 39 U/L 10-35 H Lab Interpretation (test Abnormal code = 78284-1) Dillard MethodistLipase [id number] 06:34:17 Test Item Value Reference Range Interpretation Comments Lipase (test code = 3040-3) 94 U/L 13-60 H Lab Interpretation (test code = Abnormal 83777-3) Dillard MethodistMagnesium [id number] 06:34:17 Test Item Value Reference Range Interpretation Comments Magnesium (test code = 03008-2) 1.9 mg/dL 1.6-2.6 Dillard MethodistEstimated [id number] 06:34:16 Test Item Value Reference Range Interpretation Comments Estimated GFR (test >=90 mL/min/1.73 m2 [facility] Units code = 5488) InterpretationG 1 >=90 Normal or highG2 60-89 Mildly ujnslqntuF6d 45-59 Mildly to mode rately yhoacjbopI3w 30-44 Moderately to severely decreasedG4 15-29 Severely decre asedG5 <15 Kidn ey failureThe eGFR was calculated cb peng the Chronic Kidney Disease Epidemiology Co llaboration (CKD-EPI) equat ion. Interpretation is based on recommendations of the National Kidney Foundation-Kidn ey Disease Outcomes Qualit y Initiative (NKF-KDOQI) pub lished in 2014. Dillard MethodistPhosphorus [id number] 06:34:15 Test Item Value Reference Range Interpretation Comments Phosphorus (test code = 2777-1) 2.6 mg/dL 2.4-4.5 Dillard MethodistAmylase [id number] 06:34:14 Test Item Value Reference Range Interpretation Comments Amylase (test code = 1798-8) 59 U/L 28-100 Eva MethodistCBC with platelet and pwvknmdirwsd8409-69-39 06:32:26 Test Item Value Reference Range Interpretation Comments WBC (test code = 78567-9) 1.89 4.50- 11.00 k/uL L RBC (test code = 52672-0) 3.21 m/uL 4.2-5.5 L HGB (test code = 718-7) 9.3 g/dL 12-16 L HCT (test code = 4544-3) 29.9 % 37-47 L MCV (test code = 787-2) 93.1 fL 82-100 MCH (test code = 785-6) 29.0 pg 27-34 MCHC (test code = 786-4) 31.1 g/dL 31-37 RDW - SD (test code = 52.6 fL 37-55 62521-4) MPV (test code = 86020-4) 11.3 fL 8.8-13.2 Platelet count (test code 45 150- 400 k/uL L = 35014-2) Nucleated RBC (test code 0.00 /100 WBC = 06719-3) Neutrophils (test code = 57.7 % 39-69 68622-8) Lymphocytes (test code = 23.3 % 25-45 L 68996-2) Monocytes (test code = 14.8 % 0-10 H 59944-2) Eosinophils (test code = 3.7 % 0-5 35497-5) Basophils (test code = 0.5 % 0-1 06536-9) Immature granulocytes 0.0 % 0-1 "Immat ure (test code = 07152-7) granul ocytes" (promyelocytes, myelocytes, metamyelocytes) Lab Interpretation (test Abnormal code = 93572-6) Eva MethodistProthrombin time with [id number] 06:20:16 Test Item Value Reference Range Interpretation Comments Prothrombin time (test 16.3 11.5- 14.5 sec H code = 5902-2) INR (test code = 1.3 The Interna tional 25905-1) Normalized Rati o (INR) is a therapeuti c monitoring tool for patients who ar e stable on oral anticoagulant t herapy. An INR of 2.0-3 .0 is suggested for d eep vein thrombosis/pulm onary embolism. Lab Interpretation Abnormal (test code = 00721-3) Dillard MethodistManual [id number] 09:44:19 Test Item Value Reference Range Interpretation Comments Manual differential (test code PERFORMED = 87055-6) Neutrophils (test code = 59.0 % 39-69 43169-9) Lymphocytes (test code = 25.0 % 25-45 55469-9) Monocytes (test code = 79604-6) 10.0 % 0-10 Eosinophils (test code = 6.0 % 0-5 H 61047-9) Basophils (test code = 89127-0) 0.0 % 0-1 Metamyelocytes (test code = 0 % 740-1) Promyelocytes (test code = 0 % 783-1) Platelet slide review (test Mkd decreased A code = 89834-5) Anisocytosis (test code = Moderate 702-1) Polychromasia (test code = Moderate 45967-3) Ovalocytes (test code = 774-0) Moderate Lab Interpretation (test code = Abnormal 39355-4) Eva MethodistCOVID-19 qualitative [id number] 16:32:54 Test Item Value Reference Range Interpretation Comments Interpretation (test Negative results do code = 6187895) not preclude 2019-nCoV infection and should not be used as the sole basis for treatment or other patient management decisions. Negative results must be combined with clinical observations, patient history, and epidemiological information. COVID-19 qualitative Not-Detected Not-Detected PCR result (test code = 69360-5) COVID-19 qualitative See link below for C ase Number: PCR (test code = PDF Lab Report [id number] 155 [id number]) Dillard MethodistUrinalysis, automated with [id number] 15:33:04 Test Item Value Reference Range Interpretation Comments Color, UA (test code = 5778-6) Straw Appearance, UA (test code = 5767-9) Clear Specific gravity, UA (test code = 1.015 1.001-1.035 5811-5) pH, UA (test code = 5803-2) 8.0 5.0-8.5 Protein, UA (test code = 82694-0) Negative Negative Glucose, UA (test code = 27035-6) Negative Negative Ketones, UA (test code = 2514-8) Negative Negative Bilirubin, UA (test code = 5770-3) Negative Negative Blood, UA (test code = 5794-3) Negative Negative Nitrite, UA (test code = 5802-4) Negative Negative Urobilinogen, UA (test code = <2.0 <2.0 33480-3) Leukocyte esterase, UA (test code = Negative Negative 5799-2) Epithelial cells, UA (test code = 2 /HPF 5787-7) WBC, UA (test code = 5821-4) 2 0- 4 /HPF RBC, UA (test code = 71714-9) <1 0- 5 /HPF Bacteria, UA (test code = 43172-2) None seen None seen Yeast, UA (test code = 42320-2) None seen Yeast with pseudohyphae, UA (test None seen code = 69079-2) Nishant MethodistAlpha [id number] 15:09:44 Test Item Value Reference Range Interpretation Comments Alpha fetoprotein 5.3 ng/mL 0-8.3 The Luz 8000 AFP (test code = immunoassay was used. 63662-3) Results obtaine d with different assay methods or kits should not be used interchang eably and may be differgillian t. Nishant MethodistComprehensive metabolic [id number] 06:54:25 Test Item Value Reference Range Interpretation Comments Sodium (test code = 140 135- 148 mEq/L 2951-2) Potassium (test code = 4.0 3.5- 5.0 mEq/L 2823-3) Chloride (test code = 106 98- 112 mEq/L 5-0) CO2 (test code = 2027-9) 27 24- 31 mEq/L Anion gap (test code = 7@ANIO 7- 15 mEq/L 19726-9) BUN (test code = 3094-0) 9 mg/dL 6-20 Creatinine (test code = 0.63 mg/dL 0.5-0.9 2160-0) Glucose (test code = 122 mg/dL 65-99 H 2345-7) Calcium (test code = 8.1 mg/dL 8.3-10.2 L 82059-2) Protein (test code = 5.5 g/dL 6.3-8.3 L -[place] 2885-2) 4.6-7.0 g/dL1 week 4.4-7 .6 g/dL7 months-1y ear 5.1-7 .3 g/dL1-2 years 5.6-7 .5 g/dL>3 years 6.0-8 .0 g/hV13-578 6.3-8 .3 g/dL Albumin (test code = 2.6 g/dL 3.5-5 L 1751-7) A/G ratio (test code = 0.9 0.7-3.8 1759-0) Alkaline phosphatase 119 U/L 35-104 H (test code = 6768-6) AST (test code = 1920-8) 36 U/L 10-35 H ALT (test code = 1742-6) 37 U/L 5-50 Total bilirubin (test 1.0 mg/dL 0-1.2 code = 1975-2) Lab Interpretation (test Abnormal code = 61527-1) Nishant [id number] 06:54:25 Test Item Value Reference Range Interpretation Comments LDH (test code = 00679-6) 243 U/L 87-225 H Lab Interpretation (test code = Abnormal 58211-2) Nishant ChaidezUric acid [id number] 06:54:25 Test Item Value Reference Range Interpretation Comments Uric acid (test code = 3084-1) 4.2 mg/dL 2.4-5.7 Nishant ChaidezHemoglobin [id number] 12:16:07 Test Item Value Reference Range Interpretation Comments Hemoglobin A1C (test 4.6 % 4-5.6 HbA1c c utoffs for code = 37192-6) diagnosing d iabetes:4.0% - 5.6% = normal 5.7% - 6.4% = increase d risk for diabetes (prediabetes)9> =6.5% = dalpxawb6Tuceg for glycemic contro l (ADA 2016)< 7.0% Ta rget for non jet lts with diabetes. More or less stringent targe ts may be appropriate for individual juan pablo ents. <7.5% Target for Children and ad olescents with type 1 pallavi betes. Nishant ChaidezQmaufuhnuM82822-03-60 08:43:11 Test Item Value Reference Range Interpretation Comments T4 (test code = 3026-2) 6.9 ug/dL 4.5-11.7 Eva MethodistThyroid stimulating [id number] 06:09:22 Test Item Value Reference Range Interpretation Comments TSH (test code = 3016-3) 1.41 0.27- 4.20 uIU/mL Eva MethodistBilirubin [id number] 06:05:32 Test Item Value Reference Range Interpretation Comments Bilirubin direct (test code = 0.5 mg/dL 0-0.3 H 1967-10) Lab Interpretation (test code = Abnormal 72344-6) Eva MethodistCT Abdomen WWO Contrast, Pelvis W [id number] 23:51:35Hm Interface, Radiology Results - 03/14/2020 11:54 [...] calculus is seen of right renal collecting system.[facility]-[id number] MethodistLactic acid [id number] 18:33:22 Test Item Value Reference Range Interpretation Comments Lactic acid (test code = 86092-4) 1.5 mmol/L 0.5-2.2 Eva MethodistRAD, CHEST, 1 VIEW, NON [id number] 07:50:00Reason for exam:->SOBShould this be performed at the bedside?->YesFINAL REPORT CLINICAL HISTORY: SOB TECHNIQUE: 1 view of the chest. COMPARISON: None IMPRESSION: There is pulmonary vascular congestion with prominent lung markings bilaterally. Subpulmonic pleural effusions cannot be excluded. The cardiomediastinal silhouette is magnified by technique. Signed: Franky [facility] Verified Date/Time: 10/03/2018 07:50:47 Reading Location: [facility] Radiology Reading Room [id number] 07:37:00 Test Item Value Reference Range Interpretation Comments MAGNESIUM (BEAKER) (test code = 1.6 mg/dL 1.6-2.6 627) BASIC METABOLIC [id number] 07:37:00 Test Item Value Reference Range Interpretation [...] DIALYSIS PATIEN TS. Specimen slightly ictericHEPATIC FUNCTION [id number] 07:37:00 Test Item Value Reference Range Interpretation [...] 35 U/L 6-55 347) Specimen slightly ictericPROTHROMBIN TIME/[id number] 06:25:00 Test Item Value Reference Range Interpretation [...] mechanical heart valves.CBC W/PLT COUNT & AUTO [id number] 06:16:00 Test Item Value Reference Range Interpretation [...] = 3438) Received comment: User comments: Slide comments:[id number] 05:58:00 Test Item Value Reference Range Interpretation Comments MAGNESIUM (BEAKER) (test code = 1.6 mg/dL 1.6-2.6 627) BASIC METABOLIC [id number] 05:58:00 Test Item Value Reference Range Interpretation [...] DIALYSIS PATIEN TS. Specimen slightly ictericHEPATIC FUNCTION [id number] 05:58:00 Test Item Value Reference Range Interpretation [...] 39 U/L 6-55 347) Specimen slightly ictericPROTHROMBIN [id number] 05:26:00 Test Item Value Reference Range Interpretation [...] mechanical heart valves.CBC W/PLT COUNT & AUTO [id number] 05:20:00 Test Item Value Reference Range Interpretation [...] WBC 0-0 (test code = 413) VITAMIN [id number] 06:57:00 Test Item Value Reference Range Interpretation Comments VITAMIN B12 (BEAKER) (test code = 178 pg/mL 213-816 L 774) [id number] 06:57:00 Test Item Value Reference Range Interpretation Comments FERRITIN (BEAKER) (test code = 361) 21 ng/mL 5-275 FOLATE, [id number] 06:57:00 Test Item Value Reference Range Interpretation [...] 28 % 20-55 (test code = 2590) [id number] 05:59:00 Test Item Value Reference Range Interpretation Comments MAGNESIUM (BEAKER) (test code = 1.7 mg/dL 1.6-2.6 627) BASIC METABOLIC [id number] 05:59:00 Test Item Value Reference Range Interpretation [...] FOR DIALYSIS PATIEN TS. Specimen slightly ictericLIPID [id number] 05:59:00 Test Item Value Reference Range Interpretation [...] Very High >=190 Specimen slightly ictericHEPATIC FUNCTION [id number] 05:59:00 Test Item Value Reference Range Interpretation [...] = 41 U/L 6-55 347) Specimen slightly [id number] 05:59:00 Test Item Value Reference Range Interpretation Comments LIPASE (BEAKER) (test code = 749) 35 U/L 8-78 Specimen slightly ictericPROTHROMBIN [id number] 05:58:00 Test Item Value Reference Range Interpretation [...] mechanical heart valves.CBC W/PLT COUNT & AUTO [id number] 05:37:00 Test Item Value Reference Range Interpretation [...] PERCENT (BEAKER) (test code = 2801) POCT-HEMOGLOBIN [id number] 06:12:00 Test Item Value Reference Range Interpretation Comments POC-HEMOGLOBIN METER 8.6 g/dL 12.0-15.0 L TESTED AT [facility] ([facility]) (test code = [place] [address] 1539)
[2020-04-16] MEDS ORDERED: HYDROCODONE/APAP 10/325 TAB ONE (05:36)
--- NOTE | 2020-04-16 07:04 | EDPHYS ---
Physician Documentation [facility] Name: Zenaida Goss Age: 59 yrs Sex: Female : 1960 Arrival Date: 04/16/2020 Time: 04:49 Bed 6 Private MD: Madhu Albarado R ED Physician Macrio Stone HPI: 04/16 05:42 This 59 yrs old Female presents to ER via Wheelchair with complaints of Fall rn Injury, Back Pain. 05:42 Details of fall: The patient fell from an upright position, while walking. Onset: The rn symptoms/episode began/occurred last night. Associated injuries: The patient sustained injury to the low back, right wrist. Severity of symptoms: At their worst the symptoms were mild. The patient has not experienced similar symptoms in the past. The patient has not recently seen a physician. Reports fall last night when walking dog, got tangled, fell onto knees and hands, no direct contact or trauma to back. Reports mild pain to right wrist and across low back. No weakness to legs or paresthesias. No head injury or LOC. Reports was going to work this AM, pain in wrist and back got worse so came here instead. Took motrin prior to arrival. . Historical: - Allergies: 05:03 Morphine (Anaphylaxis); sg - PMHx: 05:03 Anemia; breast cancer; Cirrhosis; fatty liver; Pancreatitis; varices; sg - PSHx: 05:03 Appendectomy; Cholecystectomy; Hysterectomy; Lumpectomy; sg - Immunization history:: Adult Immunizations up to date. - Social history:: Smoking status: Patient denies any tobacco usage or history of. - Family history:: not pertinent. - Hospitalizations: : No recent hospitalization is reported. ROS: 05:42 Constitutional: Negative for fever, chills, and weight loss, Eyes: Negative for injury, rn pain, redness, and discharge, Neck: Negative for injury, pain, and swelling, Cardiovascular: Negative for chest pain, palpitations, and edema, Respiratory: Negative for shortness of breath, cough, wheezing, and pleuritic chest pain, Abdomen/GI: Negative for abdominal pain, nausea, vomiting, diarrhea, and constipation, Back: + lower back pain : Negative for injury, bleeding, discharge, and swelling, MS/Extremity: + right wrist injury and pain Skin: Negative for injury, rash, and discoloration, Neuro: Negative for headache, weakness, numbness, tingling, and seizure. Exam: 05:42 Constitutional: This is a well developed, well nourished patient who is awake, alert, rn and in no acute distress. Head/Face: Normocephalic, atraumatic. Neck: No cervical midline tenderness Cardiovascular: Regular rate and rhythm. No pulse deficits. Respiratory: Speaking full sentences. Unlabored. Abdomen/GI: soft, non-tender Back: No spinal tenderness. + tenderness of musculature in band across lower lumbar area Skin: Warm, dry MS/ Extremity: Pulses equal, no cyanosis. Neurovascular intact. + mild right distal radius and ulnar pain, no deformity, no bruising. Neuro: Awake and alert, GCS 15, oriented to person, place, time, and situation. Cranial nerves II-XII grossly intact. Motor strength 5/5 in all extremities. Sensory grossly intact. Cerebellar exam normal. Normal gait. Able to walk from wheelchair to bathroom. Vital Signs: 05:00 BP 138 / 70; Pulse 77; Resp 16; Pulse Ox 100% on R/A; sg MDM: 04:58 Patient medically screened. rn 07:01 Differential diagnosis: contusion, fracture, sprain, strain. Data reviewed: vital rn signs, nurses notes, radiologic studies, plain films, and as a result, I will discharge patient. Test interpretation: by ED physician or midlevel provider: plain radiologic studies, Xrays right wrist and lumbar spine negative for acute fracture.. Counseling: I had a detailed discussion with the patient and/or guardian regarding: the historical points, exam findings, and any diagnostic results supporting the discharge/admit diagnosis, radiology results, the need for outpatient follow up, to return to the emergency department if symptoms worsen or persist or if there are any questions or concerns that arise at home. Response to treatment: the patient's symptoms have mildly improved after treatment, and as a result, I will discharge patient. Special discussion: I discussed with the patient/guardian in detail that at this point there is no indication for admission to the hospital. It is understood, however, that if the symptoms persist or worsen the patient needs to return immediately for re-evaluation. 04/16 05:02 Order name: XRAY Wrist RIGHT 3 view rn 04/16 05:02 Order name: XRAY Lumbar Spine (3 Views) rn Administered Medications: 05:23 Drug: [place] 10 mg-325 mg 1 tabs Route: PO; rv 06:45 Follow up: Response: No adverse reaction ea Disposition: 04/16/20 07:03 Discharged to Home. Impression: Contusion of right wrist, Strain of muscle, fascia and tendon of lower back. - Condition is Stable. - Discharge Instructions: Back Pain, Adult, Contusion, Muscle Strain, Wrist Pain. - Medication Reconciliation Form, Thank You Letter, Antibiotic Education, Prescription Opioid Use form. - Work release form (04/16/20 07:11). ea - Follow up: Private Physician; When: As needed; Reason: Recheck today's complaints, Re-evaluation by your physician. - Problem is new. - Symptoms have improved. Signatures: Dispatcher [employer] EDChai Tello RN RN Marcio Amin MD MD rn Antunez, Elena, RN RN ea Vicente, Ronaldo, RN RN rv Corrections: (The following items were deleted from the chart) 07:09 07:03 04/16/2020 07:03 Discharged to Home. Impression: Contusion of right wrist; Strain ea of muscle, fascia and tendon of lower back. Condition is Stable. Discharge Instructions: Back Pain, Adult, Contusion, Muscle Strain, Wrist Pain. Forms are Medication Reconciliation Form, Thank You Letter, Antibiotic Education, Prescription Opioid Use. Follow up: Private Physician; When: As needed; Reason: Recheck today's complaints, Re-evaluation by your physician. Problem is new. Symptoms have improved. rn
--- NOTE | 2020-04-16 07:04 | ER ---
Nurse's Notes [facility] Name: Zenaida Goss Age: 59 yrs Sex: Female : 1960 Arrival Date: 04/16/2020 Time: 04:49 Bed 6 Private MD: Madhu Albarado R Diagnosis: Contusion of right wrist;Strain of muscle, fascia and tendon of lower back Presentation: 04/16 05:00 Chief complaint: Patient states: Last night I was walking my dog, the dog saw a cat and sg bolted across the way and caused me to fall forward. I felt ok, my right wrist and fore arm were sore last night and I thought maybe I had broken by hand or wrist. This morning I had sat down in the car and started having really bad lower back pain, Im not really sure what I did to it. Coronavirus screen: Client denies travel out of the [place] in the last 14 days. At this time, the client does not indicate any symptoms associated with coronavirus-19. Ebola Screen: Patient negative for fever greater than or equal to 101.5 degrees Fahrenheit, and additional compatible Ebola Virus Disease symptoms Patient denies exposure to infectious person. Patient denies travel to an Ebola-affected area in the 21 days before illness onset. No symptoms or risks identified at this time. Risk Assessment: Do you want to hurt yourself or someone else? Patient reports no desire to harm self or others. Onset of symptoms was April 16, 2020. Care prior to arrival: None. Transition of care: patient was not received from another setting of care. 05:00 Method Of Arrival: Wheelchair sg 05:00 Acuity: TANK 4 sg 05:00 Initial Sepsis Screen: Does the patient meet any 2 criteria? No. Patient's initial sg sepsis screen is negative. Does the patient have a suspected source of infection? No. Patient's initial sepsis screen is negative. Historical: - Allergies: 05:03 Morphine (Anaphylaxis); sg - PMHx: 05:03 Anemia; breast cancer; Cirrhosis; fatty liver; Pancreatitis; varices; sg - PSHx: 05:03 Appendectomy; Cholecystectomy; Hysterectomy; Lumpectomy; sg - Immunization history:: Adult Immunizations up to date. - Social history:: Smoking status: Patient denies any tobacco usage or history of. - Family history:: not pertinent. - Hospitalizations: : No recent hospitalization is reported. Screenin:12 Abuse screen: Denies threats or abuse. Denies injuries from another. Nutritional rv screening: No deficits noted. Tuberculosis screening: No symptoms or risk factors identified. Fall Risk None identified. Assessment: 05:11 General: Appears uncomfortable, Behavior is calm, cooperative. Pain: Complains of pain rv in back. Neuro: Level of Consciousness is awake, alert, obeys commands, Oriented to person, place, time, situation. Cardiovascular: Patient's skin is warm and dry. Respiratory: Airway is patent Respiratory effort is even, unlabored, Breath sounds are clear bilaterally. Derm: Skin is intact. 06:17 Reassessment: Patient and/or family updated on plan of care and expected duration. Pain ea level reassessed. Patient is alert, oriented x 3, equal unlabored respirations, skin warm/dry/pink. Returned form radiology. 07:08 Reassessment: Patient and/or family updated on plan of care and expected duration. Pain ea level reassessed. Patient is alert, oriented x 3, equal unlabored respirations, skin warm/dry/pink. Discharge instruction given to patient, verbalized the understanding of instruction. Pt left ED via wheelchair, pt tolerating well. Vital Signs: 05:00 BP 138 / 70; Pulse 77; Resp 16; Pulse Ox 100% on R/A; sg ED Course: 04:49 Patient arrived in ED. es 04:49 Madhu Albarado MD is Private Physician. es 04:58 Marcio Stone MD is Attending Physician. rn 05:00 Arm band placed on. sg 05:02 Triage completed. sg 05:11 Pop Ochoa RN is Primary Nurse. rv 05:12 Patient has correct armband on for positive identification. Pulse ox on. NIBP on. rv 06:26 XRAY Wrist RIGHT 3 view In Process Unspecified. EDMS 06:26 XRAY Lumbar Spine (3 Views) In Process Unspecified. EDMS 07:08 No provider procedures requiring assistance completed. Patient did not have IV access ea during this emergency room visit. Administered Medications: 05:23 Drug: [place] 10 mg-325 mg 1 tabs Route: PO; rv 06:45 Follow up: Response: No adverse reaction ea Outcome: 07:03 Discharge ordered by . eric 07:08 Discharged to home via wheelchair. samy 07:08 Condition: stable 07:08 Discharge instructions given to patient, Instructed on discharge instructions, follow up and referral plans. Demonstrated understanding of instructions, follow-up care. 07:09 Patient left the ED. samy Signatures: Dispatcher [employer] Chai Ridley RN Bree Peter Roman, MD MD rn Antunez, Elena, RN RN ea Vicente, Ronaldo RN ERIC rv Corrections: (The following items were deleted from the chart) 05:04 05:00 Acuity: TANK 3 [place]
[2020-04-16 07:27] VITALS: BP 138/70; O2SAT 100
--- NOTE | 2020-04-16 09:46 | RAD REPORT ---
EXAM DESCRIPTION: RAD - Lumbar Spine 3 Views - 04/16/2020 6:26 am CLINICAL HISTORY: The patient is 59 years old and is Female; Pain;Lower back pain TECHNIQUE: Three views of the lumbar spine and sacrum. COMPARISON: No relevant prior studies available. FINDINGS: Vertebrae: Unremarkable. No acute fracture. Normal lateral alignment. Sacrum/coccyx: Unremarkable as visualized. No acute fracture. Disc spaces: L5-S1 disc space narrowing. Soft tissues: Unremarkable. IMPRESSION: L5-S1 disc space narrowing. Electronically signed by: Katherine Sutherland MD 04/16/2020 6:53 AM ARTS AND HUMANITIES COUNCIL DIRECTOR Due to temporary technical issues with the PACS/Fluency reporting system, reports are being signed by the in house radiologist without review as a courtesy to ensure prompt reporting. The interpreting r adiologist is fully responsible for the content of the report.
--- NOTE | 2020-04-16 09:47 | RAD REPORT ---
EXAM DESCRIPTION: RAD - Wrist Right 3 View - 04/16/2020 6:26 am CLINICAL HISTORY: The patient is 59 years old and is Female; PAIN after fall TECHNIQUE: Three views of the right wrist. COMPARISON: No relevant prior studies available. FINDINGS: Bones/joints: Unremarkable. No acute fracture. No dislocation. Soft tissues: Unremarkable. No radiopaque foreign body. IMPRESSION: No acute findings. Electronically signed by: Katherine Sutherland MD 04/16/2020 6:50 AM BILINGUAL EXECUTIVE ASSISTANT Due to temporary technical issues with the PACS/Fluency reporting system, reports are being signed by the in house radiologist without review as a courtesy to ensure prompt reporting. The interpreting r adiologist is fully responsible for the content of the report.
== END 2020-04-16 07:09 | disposition home or self-care (01) ==
LOC: ER 04:45
DX: S39.012A Strain of muscle, fascia and tendon of lower back, initial encounter (principal); S60.211A Contusion of right wrist, initial encounter; W18.30XA Fall on same level, unspecified, initial encounter; Y93.K1 Activity, walking an animal; Y92.9 Unspecified place or not applicable; Z88.5 Allergy status to narcotic agent; Z85.3 Personal history of malignant neoplasm of breast
CPT/HCPCS: 72100; 99283

== ENCOUNTER 2020-05-06 00:59 | Emergency (ER) | payer OTHER ==
--- OUTSIDE RECORDS SUMMARY | 2020-05-06 01:04 | XMS REPORT | Clinical Summary ---
:1960 Author Organization [facility] Address [address] [place] [address] Care Team Providers Name Role Phone MD Ruth Primary Care Provider Allergies Active Allergy Reactions Severity Noted Date Comments Morphine Other (See Comments) Medium 03/14/2020 Tightne ss of throat Medications Medication Sig Dispensed Refills Start Date End Date Status lactulose 10 Take 20 g by 0 Acti ve gram/15 mL (15 mouth daily. mL) solution ibuprofen Take 400 mg by 0 Disco ntinued (ADVIL) 200 MG mouth once. 0 (St op Taking at tablet Discharge) HYDROcodone-acet Take 1 tablet 10 tablet 0 03/18/2020 03/25/20 2 aminophen by mouth every 0 (NORCO) 5-325 mg 6 (six) hours per as needed for tabletIndication moderate pain s: acute pain for up to 7 days .acute pain. Max Daily Amount: 4 tablets pancrelipase, Take 1 capsule 90 capsule 1 03/23/2020 lipase-protease- by mouth 3 1 amylase, (three) times (CREOND) a day with 12,000-38,000 meals for 30 -60,000 unit days. capsule,delayed release(DR/EC) capsule Active Problems Problem Noted Date Pancreatitis due [...] Medicine Jeremy Bullock MD 03/14/2020 Travel after 05/06/2019 Surgical History Surgery Date Site/Laterality Comments HYSTERECTOMY [...] Comments Blood Pressure 136/64 03/23/2020 7:35 AM EXHAUSTER Pulse 77 03/23/2020 7:35 AM EXHAUSTER Temperature 36 C (96.8 F) 03/23/2020 7:35 AM EXHAUSTER Respiratory Rate 20 03/23/2020 7:35 AM EXHAUSTER Oxygen Saturation 96% 03/23/2020 7:35 AM EXHAUSTER Inhaled Oxygen Concentration - - Weight 122 kg (269 lb 3 oz) 03/23/2020 6:00 AM EXHAUSTER Height 162.6 cm (5' 4") 03/14/2020 4:30 PM EXHAUSTER Body Mass Index 46.21 03/14/2020 4:30 PM EXHAUSTER Plan of Treatment Health Maintenance Due Date Last Done Comments COVID-19 VACCINE (1 of 2) 1977 CERVICAL CANCER SCREENING 1982 BREAST CANCER SCREENING 2011 COLONOSCOPY SCREENING 2011 SHINGLES VACCINES (#1) 2011 INFLUENZA VACCINE 11/10/2019 01/21/2017 Procedures Procedure Name Priority Date/Time Associated Comments Diagnosis SMEAR REVIEW Routine 03/22/2020 5:15 Results for this AM EXHAUSTER procedure are i n the results section. ESTIMATED GFR Routine 03/22/2020 5:15 Results fo r this AM EXHAUSTER procedure are i n the results section. AMYLASE LEVEL Routine 03/22/2020 5:15 Results fo r this AM EXHAUSTER procedure are i n the results section. LIPASE LEVEL Routine 03/22/2020 5:15 Results for this AM EXHAUSTER procedure are i n the results section. PROTHROMBIN TIME WITH Routine 03/22/2020 5:15 Re sults for this INR AM EXHAUSTER procedure are i n the results section. PHOSPHORUS LEVEL Routine 03/22/2020 5:15 Results for this AM EXHAUSTER procedure are i n the results section. HEPATIC FUNCTION PANEL Routine 03/22/2020 5:15 R esults for this AM EXHAUSTER procedure are i n the results section. MAGNESIUM LEVEL Routine 03/22/2020 5:15 Results for this AM EXHAUSTER procedure are i n the results section. HC COMPLETE BLD COUNT Routine 03/22/2020 5:15 Re sults for this W/AUTO DIFF AM EXHAUSTER procedure are i n the results section. BASIC METABOLIC PANEL Routine 03/22/2020 5:15 Re sults for this AM EXHAUSTER procedure are i n the results section. MANUAL DIFFERENTIAL Routine 03/21/2020 4:43 Resu lts for this AM EXHAUSTER procedure are i n the results section. ESTIMATED GFR Routine 03/21/2020 4:43 Results fo r this AM EXHAUSTER procedure are i n the results section. AMYLASE LEVEL Routine 03/21/2020 4:43 Results fo r this AM EXHAUSTER procedure are i n the results section. LIPASE LEVEL Routine 03/21/2020 4:43 Results for this AM EXHAUSTER procedure are i n the results section. PROTHROMBIN TIME WITH Routine 03/21/2020 4:43 Re sults for this INR AM EXHAUSTER procedure are i n the results section. PHOSPHORUS LEVEL Routine 03/21/2020 4:43 Results for this AM EXHAUSTER procedure are i n the results section. HEPATIC FUNCTION PANEL Routine 03/21/2020 4:43 R esults for this AM EXHAUSTER procedure are i n the results section. MAGNESIUM LEVEL Routine 03/21/2020 4:43 Results for this AM EXHAUSTER procedure are i n the results section. CBC WITH PLATELET AND Routine 03/21/2020 4:43 Re sults for this DIFFERENTIAL AM EXHAUSTER procedure are i n the results section. BASIC METABOLIC PANEL Routine 03/21/2020 4:43 Re sults for this AM EXHAUSTER procedure are i n the results section. SMEAR REVIEW Routine 03/20/2020 5:20 Results for this AM EXHAUSTER procedure are i n the results section. ESTIMATED GFR Routine 03/20/2020 5:20 Results fo r this AM EXHAUSTER procedure are i n the results section. AMYLASE LEVEL Routine 03/20/2020 5:20 Results fo r this AM EXHAUSTER procedure are i n the results section. LIPASE LEVEL Routine 03/20/2020 5:20 Results for this AM EXHAUSTER procedure are i n the results section. PROTHROMBIN TIME WITH Routine 03/20/2020 5:20 Re sults for this INR AM EXHAUSTER procedure are i n the results section. PHOSPHORUS LEVEL Routine 03/20/2020 5:20 Results for this AM EXHAUSTER procedure are i n the results section. HEPATIC FUNCTION PANEL Routine 03/20/2020 5:20 R esults for this AM EXHAUSTER procedure are i n the results section. MAGNESIUM LEVEL Routine 03/20/2020 5:20 Results for this AM EXHAUSTER procedure are i n the results section. HC COMPLETE BLD COUNT Routine 03/20/2020 5:20 Re sults for this W/AUTO DIFF AM EXHAUSTER procedure are i n the results section. BASIC METABOLIC PANEL Routine 03/20/2020 5:20 Re sults for this AM EXHAUSTER procedure are i n the results section. URINALYSIS, AUTOMATED Routine 03/19/2020 12:52 Re sults for this WITH MICROSCOPY PM EXHAUSTER procedure ar e in the results section. COVID-19 QUALITATIVE STAT 03/19/2020 11:58 Res ults for this PCR AM EXHAUSTER procedure are i n the results section. SMEAR REVIEW Routine 03/19/2020 11:55 Results for this AM EXHAUSTER procedure are i n the results section. ESTIMATED GFR Routine 03/19/2020 11:55 Results fo r this AM EXHAUSTER procedure are i n the results section. LIPASE LEVEL Routine 03/19/2020 11:55 Results for this AM EXHAUSTER procedure are i n the results section. AMYLASE LEVEL Routine 03/19/2020 11:55 Results fo r this AM EXHAUSTER procedure are i n the results section. PROTHROMBIN TIME WITH Routine 03/19/2020 11:55 Re sults for this INR AM EXHAUSTER procedure are i n the results section. PHOSPHORUS LEVEL Routine 03/19/2020 11:55 Results for this AM EXHAUSTER procedure are i n the results section. MAGNESIUM LEVEL Routine 03/19/2020 11:55 Results for this AM EXHAUSTER procedure are i n the results section. HEPATIC FUNCTION PANEL Routine 03/19/2020 11:55 R esults for this AM EXHAUSTER procedure are i n the results section. HC COMPLETE BLD COUNT Routine 03/19/2020 11:55 Re sults for this W/AUTO DIFF AM EXHAUSTER procedure are i n the results section. BASIC METABOLIC PANEL Routine 03/19/2020 11:55 Re sults for this AM EXHAUSTER procedure are i n the results section. SMEAR REVIEW Routine 03/18/2020 4:18 Results for this AM EXHAUSTER procedure are i n the results section. ESTIMATED GFR Routine 03/18/2020 4:18 Results fo r this AM EXHAUSTER procedure are i n the results section. ALPHA FETOPROTEIN Routine 03/18/2020 4:18 Result s for this AM EXHAUSTER procedure are i n the results section. AMYLASE LEVEL Routine 03/18/2020 4:18 Results fo r this AM EXHAUSTER procedure are i n the results section. LIPASE LEVEL Routine 03/18/2020 4:18 Results for this AM EXHAUSTER procedure are i n the results section. PROTHROMBIN TIME WITH Routine 03/18/2020 4:18 Re sults for this INR AM EXHAUSTER procedure are i n the results section. PHOSPHORUS LEVEL Routine 03/18/2020 4:18 Results for this AM EXHAUSTER procedure are i n the results section. HEPATIC FUNCTION PANEL Routine 03/18/2020 4:18 R esults for this AM EXHAUSTER procedure are i n the results section. MAGNESIUM LEVEL Routine 03/18/2020 4:18 Results for this AM EXHAUSTER procedure are i n the results section. HC COMPLETE BLD COUNT Routine 03/18/2020 4:18 Re sults for this W/AUTO DIFF AM EXHAUSTER procedure are i n the results section. BASIC METABOLIC PANEL Routine 03/18/2020 4:18 Re sults for this AM EXHAUSTER procedure are i n the results section. SMEAR REVIEW Routine 03/17/2020 4:15 Results for this AM EXHAUSTER procedure are i n the results section. ESTIMATED GFR Routine 03/17/2020 4:15 Results fo r this AM EXHAUSTER procedure are i n the results section. LDH Routine 03/17/2020 4:15 Results for this AM EXHAUSTER procedure are i n the results section. URIC ACID LEVEL Routine 03/17/2020 4:15 Results for this AM EXHAUSTER procedure are i n the results section. PROTHROMBIN TIME WITH Routine 03/17/2020 4:15 Re sults for this INR AM EXHAUSTER procedure are i n the results section. PHOSPHORUS LEVEL Routine 03/17/2020 4:15 Results for this AM EXHAUSTER procedure are i n the results section. MAGNESIUM LEVEL Routine 03/17/2020 4:15 Results for this AM EXHAUSTER procedure are i n the results section. COMPREHENSIVE Routine 03/17/2020 4:15 Results fo r this METABOLIC PANEL AM EXHAUSTER procedure ar e in the results section. CBC WITH PLATELET AND Routine 03/17/2020 4:15 Re sults for this DIFFERENTIAL AM EXHAUSTER procedure are i n the results section. SMEAR REVIEW Routine 03/16/2020 4:32 Results for this AM EXHAUSTER procedure are i n the results section. ESTIMATED GFR Routine 03/16/2020 4:32 Results fo r this AM EXHAUSTER procedure are i n the results section. LDH Routine 03/16/2020 4:32 Results for this AM EXHAUSTER procedure are i n the results section. URIC ACID LEVEL Routine 03/16/2020 4:32 Results for this AM EXHAUSTER procedure are i n the results section. PROTHROMBIN TIME WITH Routine 03/16/2020 4:32 Re sults for this INR AM EXHAUSTER procedure are i n the results section. PHOSPHORUS LEVEL Routine 03/16/2020 4:32 Results for this AM EXHAUSTER procedure are i n the results section. MAGNESIUM LEVEL Routine 03/16/2020 4:32 Results for this AM EXHAUSTER procedure are i n the results section. COMPREHENSIVE Routine 03/16/2020 4:32 Results fo r this METABOLIC PANEL AM EXHAUSTER procedure ar e in the results section. CBC WITH PLATELET AND Routine 03/16/2020 4:32 Re sults for this DIFFERENTIAL AM EXHAUSTER procedure are i n the results section. SMEAR REVIEW Routine 03/15/2020 4:45 Results for this AM EXHAUSTER procedure are i n the results section. HEMOGLOBIN A1C Routine 03/15/2020 4:45 Results f or this AM EXHAUSTER procedure are i n the results section. PROTHROMBIN TIME WITH Routine 03/15/2020 4:45 Re sults for this INR AM EXHAUSTER procedure are i n the results section. CBC WITH PLATELET AND Routine 03/15/2020 4:45 Re sults for this DIFFERENTIAL AM EXHAUSTER procedure are i n the results section. BILIRUBIN DIRECT Routine 03/15/2020 4:00 Results for this AM EXHAUSTER procedure are i n the results section. ESTIMATED GFR Routine 03/15/2020 4:00 Results fo r this AM EXHAUSTER procedure are i n the results section. LDH Routine 03/15/2020 4:00 Results for this AM EXHAUSTER procedure are i n the results section. URIC ACID LEVEL Routine 03/15/2020 4:00 Results for this AM EXHAUSTER procedure are i n the results section. T4 Routine 03/15/2020 4:00 Results for this AM EXHAUSTER procedure are i n the results section. THYROID STIMULATING Routine 03/15/2020 4:00 Resu lts for this HORMONE AM EXHAUSTER procedure are i n the results section. PHOSPHORUS LEVEL Routine 03/15/2020 4:00 Results for this AM EXHAUSTER procedure are i n the results section. MAGNESIUM LEVEL Routine 03/15/2020 4:00 Results for this AM EXHAUSTER procedure are i n the results section. COMPREHENSIVE Routine 03/15/2020 4:00 Results fo r this METABOLIC PANEL AM EXHAUSTER procedure ar e in the results section. CT ABDOMEN WWO Routine 03/14/2020 9:04 Results f or this CONTRAST PELVIS W PM EXHAUSTER procedure are in CONTRAST the results section. SMEAR REVIEW Routine 03/14/2020 5:20 Results for this PM EXHAUSTER procedure are i n the results section. ESTIMATED GFR Routine 03/14/2020 5:20 Results fo r this PM EXHAUSTER procedure are i n the results section. LACTIC ACID LEVEL Routine 03/14/2020 5:20 Result s for this PM EXHAUSTER procedure are i n the results section. PROTHROMBIN TIME WITH Routine 03/14/2020 5:20 Re sults for this INR PM EXHAUSTER procedure are i n the results section. PHOSPHORUS LEVEL Routine 03/14/2020 5:20 Results for this PM EXHAUSTER procedure are i n the results section. MAGNESIUM LEVEL Routine 03/14/2020 5:20 Results for this PM EXHAUSTER procedure are i n the results section. LIPASE LEVEL Routine 03/14/2020 5:20 Results for this PM EXHAUSTER procedure are i n the results section. HC COMPLETE BLD COUNT Routine 03/14/2020 5:20 Re sults for this W/AUTO DIFF PM EXHAUSTER procedure are i n the results section. COMPREHENSIVE Routine 03/14/2020 5:20 Results fo r this METABOLIC PANEL PM EXHAUSTER procedure ar e in the results section. COVID-19 QUALITATIVE Routine 03/14/2020 4:30 Res ults for this PCR PM EXHAUSTER procedure are i n the results section. after 05/06/2019 Results Smear review (03/22/2020 5:15 AM EXHAUSTER)Only the most recent of8 resultswithin the time period is included. Platelet slide review Mkd decreased (A) [facility] Anisocytosis Moderate [facility] Polychromasia Moderate [facility] Ovalocytes Moderate [facility] Specimen Plasma Performing Organization Address City/State/ZIP Code Phon e Number [facility] DEPARTMENT OF PATHOLOGY AND [address] [place] [address] [phone] [address] Estimated GFR (03/22/2020 5:15 AM EXHAUSTER)Only the most recent of9 resultswithin the time period is included. [facility] Estimated GFR >=90 mL/min/1.73 [facility] Comment: HOSPITAL Catergory Units Interpretation G1 >=90 [...] in 2014. Specimen Plasma Performing Organization Address City/[facility] Phon e Number [facility] DEPARTMENT OF PATHOLOGY AND [address] [place], [place] [address] [address] [place] [phone] Prothrombin time with INR (03/22/2020 5:15 AM EXHAUSTER)Only the most recent of9 resultswithin the time period is included. [facility] Prothrombin time 16.3 (H) 11.5 - 14.5 [facility] INR 1.3 [place] Comment: [place] The International Normalized Ratio (INR) is a [facility]ITAL monitoring tool for patients who are stable on oral anticoagulant therapy. An INR of 2.0-3.0 is suggested for deep vein thrombosis/pulmonary embolism. Specimen Blood Performing Organization Address City/[facility] Phon e Number [facility] DEPARTMENT OF PATHOLOGY AND [address] [place] [phone] CBC with platelet and differential (03/22/2020 5:15 AM EXHAUSTER)Only the most recent of9 resultswithin the time period is included. [facility] WBC 1.89 (L) 4.50 - 11.00 [facility] k/uL [facility] RBC 3.21 (L) 4.20 - 5.50 [facility] m/[facility] HGB 9.3 (L) 12.0 - 16.0 [facility] g/dL [facility] HCT 29.9 (L) 37.0 - 47.0 % [facility] MCV 93.1 82.0 - 100.0 [facility] MCH 29.0 27.0 - 34.0 pg [facility] MCHC 31.1 31.0 - 37.0 [facility] g/dL [facility] RDW - SD 52.6 37.0 - 55.0 fL [facility] MPV 11.3 8.8 - 13.2 fL [facility] Platelet count 45 (L) 150 - 400 k/uL [facility] Nucleated RBC 0.00 /100 WBC [facility] Neutrophils 57.7 39.0 - 69.0 % [facility] Lymphocytes 23.3 (L) 25.0 - 45.0 % [facility] Monocytes 14.8 (H) 0.0 - 10.0 % [facility] Eosinophils 3.7 0.0 - 5.0 % [facility] Basophils 0.5 0.0 - 1.0 % [facility] Immature granulocytes 0.0Comment: 0.0 - 1.0 % [facility] "[facility] granulocytes" (promyelocytes , myelocytes, metamyelocytes ) Specimen Plasma Performing Organization Address City/[facility] Phon e Number [facility] DEPARTMENT OF PATHOLOGY AND [address] [place] [address] [phone] [address] Phosphorus level (03/22/2020 5:15 AM EXHAUSTER)Only the most recent of9 resultswithin the time period is included. Pathologist Sig nature Phosphorus 2.6 2.4 - 4.5 mg/dL [facility] Specimen Plasma Performing Organization Address City/[facility] Phon e Number [facility] DEPARTMENT OF PATHOLOGY AND [address] [place] [address] [phone] [address] Magnesium level (03/22/2020 5:15 AM EXHAUSTER)Only the most recent of9 resultswithin the time period is included. Pathologist Sig nature Magnesium 1.9 1.6 - 2.6 mg/dL [facility] Specimen Plasma Performing Organization Address City/[facility] Phon e Number [facility] DEPARTMENT OF PATHOLOGY AND [address] [place] [address] [phone] [place] [address] Lipase level (03/22/2020 5:15 AM EXHAUSTER)Only the most recent of6 resultswithin the time period is included. Pathologist Sig nature Lipase 94 (H) 13 - 60 U/L [facility] Specimen Plasma Performing Organization Address City/[facility] Phon e Number [facility] DEPARTMENT OF PATHOLOGY AND [address] [place] [address] [phone] [address] Amylase level (03/22/2020 5:15 AM EXHAUSTER)Only the most recent of5 resultswithin the time period is included. Pathologist Sig nature Amylase 59 28 - 100 U/L [facility] Specimen Plasma Performing Organization Address [facility] Phon e Number [facility] DEPARTMENT OF PATHOLOGY AND [address] [place] [address] [phone] [address] Hepatic function panel (03/22/2020 5:15 AM EXHAUSTER)Only the most recent of5 results within the time period is included. Albumin 2.7 (L) 3.5 - 5.0 [facility] g/dL [facility] Total bilirubin 1.1 0.0 - 1.2 [facility] mg/dL [facility] Bilirubin direct 0.4 (H) 0.0 - 0.3 [facility] mg/dL [facility] Alkaline phosphatase 114 (H) 35 - 104 U/L [facility] Protein 6.0 (L) 6.3 - 8.3 [facility] Comment: g/dL [facility] [place] 4.6-7.0 g/dL 1 week 4.4-7.6 g/dL 7 months-1year 5.1-7.3 g/dL 1-2 years 5.6-7.5 g/dL >3 years 6.0-8.0 g/dL 18-150 6.3-8.3 g/dL ALT 31 5 - 50 U/L [facility] AST 39 (H) 10 - 35 U/L [facility] Specimen Plasma Performing Organization Address [facility] Phon e Number [facility] DEPARTMENT OF PATHOLOGY AND [address] [place], [place] [phone] [address] [place] [address] Basic metabolic panel (03/22/2020 5:15 AM EXHAUSTER)Only the most recent of5 results within the time period is included. Pathologist Sig nature Sodium 139 135 - 148 mEq/L [facility] Potassium 3.9 3.5 - 5.0 mEq/L [facility] Chloride 106 98 - 112 mEq/L [facility] CO2 27 24 - 31 mEq/L [facility] Anion gap 6@ANIO (L) 7 - 15 mEq/L [facility] BUN 9 6 - 20 mg/dL [facility] Creatinine 0.54 0.50 - 0.90 mg/dL [facility] Glucose 145 (H) 65 - 99 mg/dL [facility] Calcium 8.2 (L) 8.3 - 10.2 mg/dL [facility] Specimen Plasma Performing Organization Address City/[facility] Phon e Number [facility] DEPARTMENT OF PATHOLOGY AND [address] [place] [phone] GENOMIC MEDICINE [address] [address] Manual differential (03/21/2020 4:43 AM EXHAUSTER) Manual differential PERFORMED [facility] Neutrophils 59.0 39.0 - 69.0 [facility] Lymphocytes 25.0 25.0 - 45.0 [facility] Monocytes 10.0 0.0 - 10.0 % [facility] Eosinophils 6.0 (H) 0.0 - 5.0 % [facility] Basophils 0.0 0.0 - 1.0 % [facility] Metamyelocytes 0 % [facility] Promyelocytes 0 % [facility] Platelet slide review Mkd decreased (A) [facility] Anisocytosis Moderate [facility] Polychromasia Moderate [facility] Ovalocytes Moderate [facility] Specimen Plasma Performing Organization Address City/[facility] Phon e Number [facility] DEPARTMENT OF PATHOLOGY AND [address] [place] [phone] [facility] MEDICINE [address] [address] Urinalysis, automated with microscopy (03/19/2020 12:52 PM EXHAUSTER) Pathologist Sig nature Color, UA Straw [facility] Appearance, UA Clear [facility] Specific gravity, UA 1.015 1.001 - 1.035 [facility] pH, UA 8.0 5.0 - 8.5 [facility] Protein, UA Negative Negative [facility] Glucose, UA Negative Negative [facility] Ketones, UA Negative Negative [facility] Bilirubin, UA Negative Negative [facility] Blood, UA Negative Negative [facility] Nitrite, UA Negative Negative [facility] Urobilinogen, UA <2.0 <2.0 [facility] Leukocyte esterase, Negative Negative [facility] Epithelial cells, UA 2 /HPF [facility] WBC, UA 2 0 - 4 /HPF [facility] RBC, UA <1 0 - 5 /HPF [facility] Bacteria, UA None seen None seen [facility] Yeast, UA None seen [facility] Yeast with None seen [facility] pseudohyphae, [facility] Specimen Urine Performing Organization Address [facility] Phon e Number [facility] DEPARTMENT OF PATHOLOGY AND [address] [place] [address] 0 [place] [address] COVID-19 qualitative PCR (03/19/2020 11:58 AM EXHAUSTER)Only the most recent of2 resultswithin the time period is included. Interpretation Negative results do not prec lude 2019-nCoV infection and should not be used as the sole basis for treatment or other patient management decisions. Negative results must be combined with clinical observations, patient history, and epidemiological [place] information. [facility] COVID-19 qualitative Not-Detected Not-Detecte [place] PCR result d [facility] COVID-19 qualitative See link below for [place] PCR PDF Lab [facility] ReportComment: Case HOSPITAL Number: [id number] Specimen Nasal swab Performing Organization Address [facility] Phon e Number [facility] DEPARTMENT OF PATHOLOGY AND [address] [place] [address] [address] [place] [phone] [facility] Alpha fetoprotein (03/18/2020 4:18 AM EXHAUSTER) Alpha fetoprotein 5.3 0.0 - 8.3 [place] Comment: ng/mL ANA[facility] The Luz 8000 AFP immunoassay was used. HOSPITAL Results obtained with different assay methods or kits should not be used interchangeably and may be differen t. Specimen Serum Performing Organization Address [facility] Phon e Number [facility] DEPARTMENT OF PATHOLOGY AND [address] [place] [address] [phone] [address] Uric acid level (03/17/2020 4:15 AM EXHAUSTER)Only the most recent of3 resultswithin the time period is included. Pathologist Sig nature Uric acid 4.2 2.4 - 5.7 mg/dL [facility] L Specimen Plasma Performing Organization Address City/[facility] Phon e Number [facility] DEPARTMENT OF PATHOLOGY AND [address] [place] [address] [phone] [address] LDH (03/17/2020 4:15 AM EXHAUSTER)Only the most recent of3 resultswithin the time period is included. Pathologist Sig nature LDH 243 (H) 87 - 225 U/L [facility] Specimen Plasma Performing Organization Address [facility] Phon e Number [facility] DEPARTMENT OF PATHOLOGY AND [address] [place] [address] [phone] [address] Comprehensive metabolic panel (03/17/2020 4:15 AM EXHAUSTER)Only the most recent of4 resultswithin the time period is included. Sodium 140 135 - 148 [facility] mEq/L [facility] Potassium 4.0 3.5 - 5.0 [facility] mEq/L [facility] Chloride 106 98 - 112 [facility] mEq/L [facility] CO2 27 24 - 31 mEq/L [facility] Anion gap 7@ANIO 7 - 15 mEq/L [facility] BUN 9 6 - 20 mg/dL [facility] Creatinine 0.63 0.50 - 0.90 [facility] mg/dL [facility] Glucose 122 (H) 65 - 99 mg/dL [facility] Calcium 8.1 (L) 8.3 - 10.2 [facility] mg/dL [facility] Protein 5.5 (L) 6.3 - 8.3 [facility] Comment: g/dL [facility] - [place] 4.6-7.0 g/dL 1 week 4.4-7.6 g/dL 7 months-1year 5.1-7.3 g/dL 1-2 years 5.6-7.5 g/dL >3 years 6.0-8.0 g/dL 18-150 6.3-8.3 g/dL Albumin 2.6 (L) 3.5 - 5.0 [facility] g/dL [facility] A/G ratio 0.9 0.7 - 3.8 [facility] Alkaline phosphatase 119 (H) 35 - 104 U/L [facility] AST 36 (H) 10 - 35 U/L [facility] ALT 37 5 - 50 U/L [facility] Total bilirubin 1.0 0.0 - 1.2 [facility] mg/dL HOSPITAL Specimen Plasma Performing Organization Address City/[facility] Phon e Number [facility] DEPARTMENT OF PATHOLOGY AND [address] [place] [phone] Hemoglobin A1c (03/15/2020 4:45 AM EXHAUSTER) Hemoglobin A1C 4.6 4.0 - 5.6 % [facility] Comment: HOSPITAL HbA1c cutoffs for diagnosing diabetes: [...] diabetes. Specimen Blood Performing Organization Address City/[facility] Phon e Number [facility] DEPARTMENT OF PATHOLOGY AND [address] [place] [phone] Thyroid stimulating hormone (03/15/2020 4:00 AM EXHAUSTER) Pathologist Sig nature TSH 1.41 0.27 - 4.20 uIU/mL [facility] IT[facility] Specimen Plasma Performing Organization Address City/[facility] Phon e Number [facility] DEPARTMENT OF PATHOLOGY AND [address] [place] [address] [phone] [address] T4 (03/15/2020 4:00 AM EXHAUSTER) Pathologist Sig nature T4 6.9 4.5 - 11.7 ug/dL [facility] AL Specimen Plasma Performing Organization Address City/[facility]/ZIP Code Phon e Number [facility] DEPARTMENT OF PATHOLOGY AND [address] [place], [place] [address] [place] [id number] [place] [address] Bilirubin direct (03/15/2020 4:00 AM EXHAUSTER) Pathologist Sig nature Bilirubin direct 0.5 (H) 0.0 - 0.3 mg/dL [facility] Specimen Plasma Performing Organization Address [facility] Phon e Number [facility] DEPARTMENT OF PATHOLOGY AND [address] [place] [phone] [facility] [address] [place] [phone] Abdomen WWO Contrast, Pelvis W Contrast (03/14/2020 9:04 PM EXHAUSTER) Specimen Narrative Performed At CT ABDOMEN WWO [...] is seen of right renal collecting system. [facility]-[id number] Procedure Note Interface, Radiology Results Incoming - 03/14/2020 11:[address] ABDOMEN WWO CONTRAST PELVIS W CONTRAST [...] is seen of right renal collecting system. [facility]-[id number] Performing Organization Address City/State/ZIP Code Phon e Number [facility] [address] [place] [address] Lactic acid level (03/14/2020 5:20 PM EXHAUSTER) Pathologist Sig nature Lactic acid 1.5 0.5 - 2.2 mmol/L [facility] AL Specimen Blood Performing Organization Address City/[facility]/ZIP Code Phon e Number [facility] DEPARTMENT OF PATHOLOGY AND [address] [place] [phone] [facility] [address] [address] after 05/06/2019 Insurance Payer Benefit Plan / Subscriber ID Effective Dates Phone Addre ss Type Group [employer] [facility] [id number] 2019-Presen Exchange CHOICE EXCHANGE EXCHANGE t 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
--- OUTSIDE RECORDS SUMMARY | 2020-05-06 01:04 | XMS REPORT | Clinical Summary ---
:1960 Author Organization [facility] Address [address] [place] [address] Care Team Providers Name Role Phone Usman [...] 10/01/2021 10/01/2018, 08/07/2016 Results Not on fileafter 05/06/2019 Advance Directives For more information, please contact: [phone] Code Status Date Activated Date Inactivated Comments Full Code 09/30/2018 8:45 PM 10/03/2018 7:37 PM This code status was determined by: Patient
--- OUTSIDE RECORDS SUMMARY | 2020-05-06 01:07 | XMS REPORT | Continuity of Care Document ---
:1960 Author Organization [facility] t Address [address] [place] [address] Care Team Providers Name Role Phone Kimtulioyovaniyazan Mary Primary Care Physician Daniella REYES Attending [...] Effective Date Expiration Date Sour ce Number [facility] [id number] 2019 [place] CHO[place] 00:[place]:00 [facility] MARKETPLACExxxxxx [id number] esentExchange Problems Condition Condition Condition Status Onset [...] st 00 Acute Acute Disease Active 2019-04 [place] pancreatit pancreatit - Me thodi is without [...] Morphine Propensi Active Other (See 2019-04 Tightness [place] ty to Comments) 204 of throat Meth [...] Date Stop Date Quantity Comments Source History [facility] Meth odist Alcohol Std Drinks History [facility] Alcohol Binge Sex Assigned At [facility] ethodist Tobacco use and 2020-03-19 2020-03-19 Never used [facility] ethodist exposure 00:00:00 00:00:00 Alcohol intake 2020-03-19 2020-03-19 Lifetime [facility] 00:00:00 00:00:00 non-drinker (finding) History SDOH [...] mL) 15:45: daily. st solution 33 pancrelipas 2019-04 No 1{capsu Q.03762180 Take 1 [place] e, 2-13 -12 le} [id number] capsule by Pa hussein lipase-prot 00:00: 23:59 3D mouth 3 [...] No acute pain 1{tbl} Q6H Take 1 [place] -acetaminop 2-08 12-15 tablet by Pa hussein hen (NORCO) 00:00: 23:[address] 5-325 mg 00 :00 every 6 per tablet (six) hours as needed for moderate pain for up to 7 days .acute pain. Max Daily Amount: 4 tablets Meloxicam Meloxicam 2020- No Gm [address] [facility] [facility] 00[facility] 00 :00 [facility] lactulose Yes 10g Q.5D [...] blood 2020-03-23 07:35:03 136 mm[Hg] [place] [facility] pressure Diastolic blood 2020-03-23 07:35:03 64 mm[Hg] [place] [facility] pressure Heart rate 2020-03-23 07:35:03 77 /min Nishant Chaidez Body temperature 2020-03-23 07:35:03 36 [place] [facility] Respiratory rate 2020-03-23 07:35:03 20 /min Chelly muñiz Catholic Oxygen saturation in 2020-03-23 07:35:03 96 /min Nishant Chaidez Arterial blood by Pulse oximetry Body weight 2020-03-23 06:00:00 122.103 kg Nishant Chaidez BMI 2020-03-23 06:00:00 46.21 kg/m2 Nishant Chaidez Body height 2020-03-14 16:30:50 162.6 cm Nishant Chaidez Procedures Procedure Date / Time Performed Performing Clinician [facility] e BASIC METABOLIC PANEL 2020-03-22 05:15:00 Dinakar, Jeremy Chaidez Deo HC COMPLETE BLD COUNT 2020-03-22 05:15:00 Dinakar, Jeremy jefferson [facility] W/AUTO DIFF Deo MAGNESIUM LEVEL 2020-03-22 05:15:00 Dinakar, Jeremy Tanner odist Deo HEPATIC FUNCTION PANEL 2020-03-22 05:15:00 Dinakar, Jeremy Baez on Catholic Deo PHOSPHORUS LEVEL 2020-03-22 05:15:00 Dinakar, Jeremy Desouza PROTHROMBIN TIME WITH INR 2020-03-22 05:15:00 Dinakar, Jeremy wilburn [facility] Deo LIPASE LEVEL 2020-03-22 05:15:00 Dinakar, Jeremy Childersra AMYLASE LEVEL 2020-03-22 05:15:00 Dinakar, Jeremy Childersra ESTIMATED GFR 2020-03-22 05:15:00 Dinakar, Jeremy Desouza SMEAR REVIEW 2020-03-22 05:15:00 Dinakar, Jeremy ayon Deo BASIC METABOLIC PANEL 2020-03-21 04:43:00 Dinakar, Jeremy Desouza CBC WITH PLATELET AND 2020-03-21 04:43:00 Dinakar, Jeremy jefferson [facility] DIFFERENTIAL Deo MAGNESIUM LEVEL 2020-03-21 04:43:00 Dinakar, Jeremy Childersra HEPATIC FUNCTION PANEL 2020-03-21 04:43:00 Dinakar, Jeremy shelton [facility] Deo PHOSPHORUS LEVEL 2020-03-21 04:43:00 Dinakar, Jeremy Desouza PROTHROMBIN TIME WITH INR 2020-03-21 04:43:00 Dinakar, Jeremy wilburn [facility] Deo LIPASE LEVEL 2020-03-21 04:43:00 Dinakar, Jeremy Tanner odist Deo AMYLASE LEVEL 2020-03-21 04:43:00 Dinakar, Jeremy Tanner odist Deo ESTIMATED GFR 2020-03-21 04:43:00 Dinakar, Jeremy ayon Deo MANUAL DIFFERENTIAL 2020-03-21 04:43:00 Dinakar, Jeremy Chaidez Deo BASIC METABOLIC PANEL 2020-03-20 05:20:00 Dinakar, Jeremy jefferson Catholic Deo HC COMPLETE BLD COUNT 2020-03-20 05:20:00 Dinakar, Jeremy jefferson [facility] W/AUTO DIFF Deo MAGNESIUM LEVEL 2020-03-20 05:20:00 Dinakar, Jeremy Tanner odist Deo HEPATIC FUNCTION PANEL 2020-03-20 05:20:00 Dinakar, Jeremy Baez on Catholic Deo PHOSPHORUS LEVEL 2020-03-20 05:20:00 Dinakar, Jeremy Dillard Met hodnohelia Childersra PROTHROMBIN TIME WITH INR 2020-03-20 05:20:00 Dinakar, Jeremy wilburn Catholic Deo LIPASE LEVEL 2020-03-20 05:20:00 Dinakar, Jeremy Tanner odist Deo AMYLASE LEVEL 2020-03-20 05:20:00 Dinakar, Jeremy Tanner odist Deo ESTIMATED GFR 2020-03-20 05:20:00 Dinakar, Jeremy Tanner odist Deo SMEAR REVIEW 2020-03-20 05:20:00 Dinakar, Jeremy Tanner odist Deo URINALYSIS, AUTOMATED 2020-03-19 12:52:00 Dinakar, Jeremy jefferson [facility] WITH MICROSCOPY Deo COVID-19 QUALITATIVE PCR 2020-03-19 11:58:00 Dinakar, Jeremy hopkins Catholic Deo BASIC METABOLIC PANEL 2020-03-19 11:55:00 Dinakar, Jeremy jefferson [facility] Deo HC COMPLETE BLD COUNT 2020-03-19 11:55:00 Dinakar, Jeremy jefferson [facility] W/AUTO DIFF Deo HEPATIC FUNCTION PANEL 2020-03-19 11:55:00 Dinakar, Jeremy Baez on Catholic Deo MAGNESIUM LEVEL 2020-03-19 11:55:00 Dinakar, Jeremy Tanner odist Deo PHOSPHORUS LEVEL 2020-03-19 11:55:00 Dinakar, Jeremy Dillard Met hodnohelia Deo PROTHROMBIN TIME WITH INR 2020-03-19 11:55:00 Dinakar, Jeremy wilburn [facility] Deo AMYLASE LEVEL 2020-03-19 11:55:00 Dinakar, Jeremy Tanner odist Deo LIPASE LEVEL 2020-03-19 11:55:00 Dinakar, Jeremy [facility] Meth odist Deo ESTIMATED GFR 2020-03-19 11:55:00 Dinakar, Jeremygenevieve Tanner odist Deo SMEAR REVIEW 2020-03-19 11:55:00 Dinakar, Jeremy Nishant Tanner odist Deo BASIC METABOLIC PANEL 2020-03-18 04:18:00 Dinakar, Jeremy jefferson Catholic Deo HC COMPLETE BLD COUNT 2020-03-18 04:18:00 Dinakar, Jeremy jefferson [facility] W/AUTO DIFF Deo MAGNESIUM LEVEL 2020-03-18 04:18:00 Dinakar, Jeremy [facility] Meth odist Deo HEPATIC FUNCTION PANEL 2020-03-18 04:18:00 Dinakar, Jeremy Baez on Catholic Deo PHOSPHORUS LEVEL 2020-03-18 04:18:00 Dinakar, Jeremy Frias hodnohelia Deo PROTHROMBIN TIME WITH INR 2020-03-18 04:18:00 Dinakar, Jeremy wilburn Catholic Deo LIPASE LEVEL 2020-03-18 04:18:00 Dinakar, Jeremy Tanner odist Deo AMYLASE LEVEL 2020-03-18 04:18:00 Dinakar, Jeremygenevieve Tanner odist Deo ALPHA FETOPROTEIN 2020-03-18 04:18:00 Yefriuria Myra Chaidez ESTIMATED GFR 2020-03-18 04:18:00 Kai Myra [facility] SMEAR REVIEW 2020-03-18 04:18:00 Kai Myra [facility] CBC WITH PLATELET AND 2020-03-17 04:15:00 Nakia Cruz [facility] DIFFERENTIAL COMPREHENSIVE METABOLIC 2020-03-17 04:15:00 Nakia Cruz [facility] PANEL MAGNESIUM LEVEL 2020-03-17 04:15:00 Nakia Cruz Meth odist PHOSPHORUS LEVEL 2020-03-17 04:15:00 Nakia Cruz Met hodist PROTHROMBIN TIME WITH INR 2020-03-17 04:15:00 Nakia Cruz [facility] URIC ACID LEVEL 2020-03-17 04:15:00 Nakia Cruz Meth odist LDH 2020-03-17 04:15:00 Nakia Cruz Meth odist ESTIMATED GFR 2020-03-17 04:15:00 Nakia Cruz Meth odist SMEAR REVIEW 2020-03-17 04:15:00 Nakia Cruz Meth odist CBC WITH PLATELET AND 2020-03-16 04:32:00 NancyVigneshNakiaanita [place] [facility] DIFFERENTIAL COMPREHENSIVE METABOLIC 2020-03-16 04:32:00 NancyVigneshNakia Chelly muñiz [facility] PANEL MAGNESIUM LEVEL 2020-03-16 04:32:00 Nakia Cruz Meth odist PHOSPHORUS LEVEL 2020-03-16 04:32:00 NancyNakia Met hodist PROTHROMBIN TIME WITH INR 2020-03-16 04:32:00 NancyNakia Aurelio [place] [facility] URIC ACID LEVEL 2020-03-16 04:32:00 Nakia Cruz Meth odist LDH 2020-03-16 04:32:00 Nakia Cruz Meth odist ESTIMATED GFR 2020-03-16 04:32:00 Nakia Cruz Meth odist SMEAR REVIEW 2020-03-16 04:32:00 NancyNakia Meth odist CBC WITH PLATELET AND 2020-03-15 04:45:00 Nancy Nakia Rishabh n Catholic DIFFERENTIAL PROTHROMBIN TIME WITH INR 2020-03-15 04:45:00 NancyNakia Aurelio issaton [facility] HEMOGLOBIN A1C 2020-03-15 04:45:00 Nakia Cruz Meth odist SMEAR REVIEW 2020-03-15 04:45:00 Nakia Cruz Meth odist COMPREHENSIVE METABOLIC 2020-03-15 04:00:00 Nakia Cruz [facility] PANEL MAGNESIUM LEVEL 2020-03-15 04:00:00 NancyNakia Meth odist PHOSPHORUS LEVEL 2020-03-15 04:00:00 NancyNakia hodist THYROID STIMULATING 2020-03-15 04:00:00 NancyNakia [facility] HORMONE T4 2020-03-15 04:00:00 Nakia Cruz Meth odist URIC ACID LEVEL 2020-03-15 04:00:00 Nakia Cruz Meth odist LDH 2020-03-15 04:00:00 Nakia Cruz Meth odist ESTIMATED GFR 2020-03-15 04:00:00 NancyNakia Meth odist BILIRUBIN DIRECT 2020-03-15 04:00:[address] ABDOMEN WWO CONTRAST 2020-03-14 21:04:21 Nakia Cruz [facility] PELVIS W CONTRAST COMPREHENSIVE METABOLIC 2020-03-14 17:20:00 Nakia Cruz [facility] PANEL HC COMPLETE BLD COUNT 2020-03-14 17:20:00 NancyVigneshNakia Rishabh jefferson [facility] W/AUTO DIFF LIPASE LEVEL 2020-03-14 17:20:00 NancyNakia [...] s - Test 00:00:00 (procedure) [code = [facility] 75928756] Future Scheduled 2019-12-[address] [facility] - Test 00:00:00 (#1) [code = [facility] INFLUENZA VACCINE (#1)] Future Scheduled 2019-11-10 INFL[place]ZA VACCINE [place] [facility] Test 00:00:00 [code = INFLUENZA VACCINE] Future Scheduled 2011 BREAST CANCER [place] [facility] Test 00:00:00 SCREENING [code = BREAST CANCER SCREENING] Future Scheduled 2011 COLONOSCOPY SCREENING [place] [facility] Test 00:00:00 [code = COLONOSCOPY SCREENING] Future Scheduled 2011 SHINGLES VACCINES [place] [facility] Test 00:00:00 (#1) [code = SHINGLES VACCINES (#1)] Future Scheduled [address] [facility] Test 00:00:00 [facility] cervix (procedure) [code = 617829545] Future Scheduled 1982 Screening for [facility] Test 00:00:00 malignant neoplasm of cervix (procedure) [code = 238852120] Future Scheduled 1977 COVID-19 VACCINE (1 [place] [facility] Test 00:00:00 of 2) [code = COVID-19 VACCINE (1 of 2)] Future Scheduled [address] [facility] - Test 00:00:00 [facility] (procedure) [code = 447337775] Future Scheduled [address] [facility] - Test 00:00:00 malignant neoplasm of [facility] colon (procedure) [code = 590456260] Encounters Start End Encounter Admission Attending Care Care Encounter Source Date/Time Date/Time Type Type Clinicians Facility Department ID 2020-03-19 2020-03-23 Inpatient [facility] [id number] [place] 00:00:00 00:00:00 JEREMY 742 Method i 2020-03-14 2020-03-18 Inpatient [facility] [id number] [place] 00:00:00 00:00:00 JEREMY 157 Method i 2020-02-13 2020-02-13 Laboratory Lab, [facility] [id number] 10:22:10 10:42:10 Only Fam Pob I Health [id number] [place] [id number] Professio [id number] nal 044 Office [address] One 2019-09-28 2019-09-28 [facility] [id number] 09:00[facility]00 09[facility] Clinics 2019-09-18 2019-09-18 [facility] [id number] 09:30:00 09:30:00 [facility] ent Clinics 2019-08-14 2019-08-14 Transition Jocelyne Alexandra [id number] 00:00:00 00:00:00 of Care Jovanny Sotelo [id number] [place] [id number] [id number] 2019-08-10 2019-08-11 [facility] [id number] 02:55:00 16:09:00 Encounter Wes Amin [id number] [place] 4.2.7.2.686 [place] [id number] Results Test Description Test Time Test Comments Results Result Comments Source Smear review 2020-03-22 09:52:20 Test Item Value Reference Range Interpretation Comme nts Platelet slide review (test code = 89319-3) Mkd decreased A Anisocytosis (test code = 702-1) Moderate Polychromasia (test code = 37231-6) Moderate Ovalocytes (test code = 774-0) Moderate Lab Interpretation (test code = 04002-5) Abnormal [facility] metabolic [id number] 06:34:17 Test Item Value Reference Range Interpretation Comments Sodium (test code = 2951-2) 139 135- 148 mEq/L Potassium (test code = 2823-3) 3.9 3.5- 5.0 mEq/L Chloride (test code = 2075-0) 106 98- 112 mEq/L CO2 (test code = 2027-9) 27 24- 31 mEq/L Anion gap (test code = 88179-9) 6@ANIO 7- 15 mEq/L L BUN (test code = 3094-0) 9 mg/dL 6-20 Creatinine (test code = 2160-0) 0.54 mg/dL 0.5-0.9 Glucose (test code = 2345-7) 145 mg/dL 65-99 H Calcium (test code = 63936-5) 8.2 mg/dL 8.3-10.2 L Lab Interpretation (test code = Abnormal 72687-3) Nishant MethodistHepatic function [id number] 06:34:17 Test Item Value Reference Range Interpretation Comments Albumin (test code = 2.7 g/dL 3.5-5 L 1750-7) Total bilirubin (test 1.1 mg/dL 0-1.2 code = 1974-) Bilirubin direct (test 0.4 mg/dL 0-0.3 H code = 1967-10) Alkaline phosphatase 114 U/L 35-104 H (test code = 6768-6) Protein (test code = 6.0 g/dL 6.3-8.3 L -[place] 2885-2) 4.6-7.0 g /dL1 week 4.4-7.6 g/dL 7 months-1year 5.1-7.3 g/dL 1-2 years 5.6-7.5 g/dL>3 years 6.0-8.0 g/zE20-603 6.3-8. 3 g/dL ALT (test code = 1742-6) 31 U/L 5-50 AST (test code = 1920-8) 39 U/L 10-35 H Lab Interpretation (test Abnormal code = 40297-9) [place] MethodistLipase [id number] 06:34:17 Test Item Value Reference Range Interpretation Comments Lipase (test code = 3040-3) 94 U/L 13-60 H Lab Interpretation (test code = Abnormal 27230-0) [place] MethodistMagnesium [id number] 06:34:17 Test Item Value Reference Range Interpretation Comments Magnesium (test code = 97707-0) 1.9 mg/dL 1.6-2.6 [facility] MethodistEstimated [id number] 06:34:16 Test Item Value Reference Range Interpretation Comments Estimated GFR (test >=90 mL/min/1.73 m2 [facility] Units code = 5488) InterpretationG 1 >=90 Normal or highG2 60-89 Mildly mmmhjvddnC8v 45-59 Mildly to mode rately svaeuvgheB4b 30-44 Moderately to severely decreasedG4 15-29 Severely decre asedG5 <15 Kidn ey failureThe eGFR was calculated cb peng the Chronic Kidney Disease Epidemiology Co llaboration (CKD-EPI) equat ion. Interpretation is based on recommendations of the National Kidney Foundation-Kidn ey Disease Outcomes Qualit y Initiative (NKF-KDOQI) pub lished in 2014. [facility] MethodistPhosphorus [id number] 06:34:15 Test Item Value Reference Range Interpretation Comments Phosphorus (test code = 2777-1) 2.6 mg/dL 2.4-4.5 [facility] MethodistAmylase [id number] 06:34:14 Test Item Value Reference Range Interpretation Comments Amylase (test code = 1798-8) 59 U/L 28-100 [place] MethodistCBC with platelet and zjegdzvxffbw4634-79-03 06:32:26 Test Item Value Reference Range Interpretation Comments WBC (test code = 64687-3) 1.89 4.50- 11.00 k/uL L RBC (test code = 75856-0) 3.21 m/uL 4.2-5.5 L HGB (test code = 718-7) 9.3 g/dL 12-16 L HCT (test code = 4544-3) 29.9 % 37-47 L MCV (test code = 787-2) 93.1 fL 82-100 MCH (test code = 785-6) 29.0 pg 27-34 MCHC (test code = 786-4) 31.1 g/dL 31-37 RDW - SD (test code = 52.6 fL 37-55 22340-6) MPV (test code = 11715-1) 11.3 fL 8.8-13.2 Platelet count (test code 45 150- 400 k/uL L = 46093-9) Nucleated RBC (test code 0.00 /100 WBC = 58937-2) Neutrophils (test code = 57.7 % 39-69 11356-4) Lymphocytes (test code = 23.3 % 25-45 L 87128-5) Monocytes (test code = 14.8 % 0-10 H 04831-6) Eosinophils (test code = 3.7 % 0-5 84256-7) Basophils (test code = 0.5 % 0-1 37056-7) Immature granulocytes 0.0 % 0-1 "Immat ure (test code = 30413-8) granul ocytes" (promyelocytes, myelocytes, metamyelocytes) Lab Interpretation (test Abnormal code = 23686-1) [place] MethodistProthrombin time with [id number] 06:20:16 Test Item Value Reference Range Interpretation Comments Prothrombin time (test 16.3 11.5- 14.5 sec H code = 5902-2) INR (test code = 1.3 The Interna tional 79371-9) Normalized Rati o (INR) is a therapeuti c monitoring tool for patients who ar e stable on oral anticoagulant t herapy. An INR of 2.0-3 .0 is suggested for d eep vein thrombosis/pulm onary embolism. Lab Interpretation Abnormal (test code = 99247-6) [facility] MethodistManual [id number] 09:44:19 Test Item Value Reference Range Interpretation Comments Manual differential (test code PERFORMED = 60461-0) Neutrophils (test code = 59.0 % 39-69 76498-1) Lymphocytes (test code = 25.0 % 25-45 09120-2) Monocytes (test code = 52935-0) 10.0 % 0-10 Eosinophils (test code = 6.0 % 0-5 H 31277-8) Basophils (test code = 65863-2) 0.0 % 0-1 Metamyelocytes (test code = 0 % 740-1) Promyelocytes (test code = 0 % 783-1) Platelet slide review (test Mkd decreased A code = 44963-0) Anisocytosis (test code = Moderate 702-1) Polychromasia (test code = Moderate 41432-3) Ovalocytes (test code = 774-0) Moderate Lab Interpretation (test code = Abnormal 26720-6) [place] MethodistCOVID-19 qualitative [id number] 16:32:54 Test Item Value Reference Range Interpretation Comments Interpretation (test Negative results do code = 5771553) not preclude 2019-nCoV infection and should not be used as the sole basis for treatment or other patient management decisions. Negative results must be combined with clinical observations, patient history, and epidemiological information. COVID-19 qualitative Not-Detected Not-Detected PCR result (test code = 46897-3) COVID-19 qualitative See link below for C ase Number: PCR (test code = PDF Lab Report [id number]) [place] MethodistUrinalysis, automated with [id number] 15:33:04 Test Item Value Reference Range Interpretation Comments Color, UA (test code = 5778-6) Straw Appearance, UA (test code = 5767-9) Clear Specific gravity, UA (test code = 1.015 1.001-1.035 5811-5) pH, UA (test code = 5803-2) 8.0 5.0-8.5 Protein, UA (test code = 89357-7) Negative Negative Glucose, UA (test code = 66552-0) Negative Negative Ketones, UA (test code = 2514-8) Negative Negative Bilirubin, UA (test code = 5770-3) Negative Negative Blood, UA (test code = 5794-3) Negative Negative Nitrite, UA (test code = 5802-4) Negative Negative Urobilinogen, UA (test code = <2.0 <2.0 06289-9) Leukocyte esterase, UA (test code = Negative Negative 5799-2) Epithelial cells, UA (test code = 2 /HPF 5787-7) WBC, UA (test code = 5821-4) 2 0- 4 /HPF RBC, UA (test code = 83328-8) <1 0- 5 /HPF Bacteria, UA (test code = 83533-0) None seen None seen Yeast, UA (test code = 67316-4) None seen Yeast with pseudohyphae, UA (test None seen code = 27824-6) Nishant MethodistAlpha [id number] 15:09:44 Test Item Value Reference Range Interpretation Comments Alpha fetoprotein 5.3 ng/mL 0-8.3 The Luz 8000 AFP (test code = immunoassay was used. 06764-6) Results obtaine d with different assay methods or kits should not be used interchang eably and may be differen tJason [facility] MethodistComprehensive metabolic [id number] 06:54:25 Test Item Value Reference Range Interpretation Comments Sodium (test code = 140 135- 148 mEq/L 2951-2) Potassium (test code = 4.0 3.5- 5.0 mEq/L 2823-3) Chloride (test code = 106 98- 112 mEq/L 5-0) CO2 (test code = 2027-9) 27 24- 31 mEq/L Anion gap (test code = 7@ANIO 7- 15 mEq/L 03480-2) BUN (test code = 3094-0) 9 mg/dL 6-20 Creatinine (test code = 0.63 mg/dL 0.5-0.9 2160-0) Glucose (test code = 122 mg/dL 65-99 H 2345-7) Calcium (test code = 8.1 mg/dL 8.3-10.2 L 72165-4) Protein (test code = 5.5 g/dL 6.3-8.3 L -[place] 2885-2) 4.6-7.0 g/dL1 week 4.4-7 .6 g/dL7 months-1y ear 5.1-7 .3 g/dL1-2 years 5.6-7 .5 g/dL>3 years 6.0-8 .0 g/tA91-514 6.3-8 .3 g/dL Albumin (test code = 2.6 g/dL 3.5-5 L 1751-7) A/G ratio (test code = 0.9 0.7-3.8 1759-0) Alkaline phosphatase 119 U/L 35-104 H (test code = 6768-6) AST (test code = 1920-8) 36 U/L 10-35 H ALT (test code = 1742-6) 37 U/L 5-50 Total bilirubin (test 1.0 mg/dL 0-1.2 code = 1975-2) Lab Interpretation (test Abnormal code = 77248-5) Nishant Cha[id number] 06:54:25 Test Item Value Reference Range Interpretation Comments LDH (test code = 13590-9) 243 U/L 87-225 H Lab Interpretation (test code = Abnormal 84341-6) Nishant ChaidezUric acid [id number] 06:54:25 Test Item Value Reference Range Interpretation Comments Uric acid (test code = 3084-1) 4.2 mg/dL 2.4-5.7 Nishant ChaidezHemoglobin [id number] 12:16:07 Test Item Value Reference Range Interpretation Comments Hemoglobin A1C (test 4.6 % 4-5.6 HbA1c c utoffs for code = 73623-1) diagnosing d iabetes:4.0% - 5.6% = normal 5.7% - 6.4% = increase d risk for diabetes (prediabetes)9> =6.5% = gmsahkxx8Ryaea for glycemic contro l (ADA 2016)< 7.0% Ta rget for non jet lts with diabetes. More or less stringent targe ts may be appropriate for individual juan pablo ents. <7.5% Target for Children and ad olescents with type 1 pallavi betes. Nishant ChaidezHmvcicmniQ21936-28-51 08:43:11 Test Item Value Reference Range Interpretation Comments T4 (test code = 3026-2) 6.9 ug/dL 4.5-11.7 [place] MethodistThyroid stimulating [id number] 06:09:22 Test Item Value Reference Range Interpretation Comments TSH (test code = 3016-3) 1.41 0.27- 4.20 uIU/mL [place] MethodistBilirubin [id number] 06:05:32 Test Item Value Reference Range Interpretation Comments Bilirubin direct (test code = 0.5 mg/dL 0-0.3 H 1967-10) Lab Interpretation (test code = Abnormal 01422-7) [place] MethodistCT Abdomen WWO Contrast, Pelvis W [id number] 23:51:35Hm Interface, Radiology Results - 03/14/2020 11:54 [...] calculus is seen of right renal collecting system.[facility]-[id number] MethodistLactic acid [id number] 18:33:22 Test Item Value Reference Range Interpretation Comments Lactic acid (test code = 70669-6) 1.5 mmol/L 0.5-2.2 [place] MethodistRAD, CHEST, 1 VIEW, NON [id number] 07:50:00Reason for exam:->SOBShould this be performed at the bedside?->YesFINAL REPORT CLINICAL HISTORY: SOB TECHNIQUE: 1 view of the chest. COMPARISON: None IMPRESSION: There is pulmonary vascular congestion with prominent lung markings bilaterally. Subpulmonic pleural effusions cannot be excluded. The cardiomediastinal silhouette is magnified by technique. Signed: Franky Louis [facility] Verified Date/Time: 10/03/2018 07:50:47 Reading Location: [facility] Radiology Reading Room [id number] 07:37:00 Test Item Value Reference Range Interpretation Comments MAGNESIUM (BEAKER) (test code = 1.6 mg/dL 1.6-2.6 627) BASIC METABOLIC [id number] 07:37:00 Test Item Value Reference Range Interpretation [...] DIALYSIS PATIEN TS. Specimen slightly ictericHEPATIC FUNCTION [id number] 07:37:00 Test Item Value Reference Range Interpretation [...] 35 U/L 6-55 347) Specimen slightly ictericPROTHROMBIN TIME/[id number] 06:25:00 Test Item Value Reference Range Interpretation [...] mechanical heart valves.CBC W/PLT COUNT & AUTO [id number] 06:16:00 Test Item Value Reference Range Interpretation [...] = 3438) Received comment: User comments: Slide comments:[id number] 05:58:00 Test Item Value Reference Range Interpretation Comments MAGNESIUM (BEAKER) (test code = 1.6 mg/dL 1.6-2.6 627) BASIC METABOLIC [id number] 05:58:00 Test Item Value Reference Range Interpretation [...] DIALYSIS PATIEN TS. Specimen slightly ictericHEPATIC FUNCTION [id number] 05:58:00 Test Item Value Reference Range Interpretation [...] 39 U/L 6-55 347) Specimen slightly ictericPROTHROMBIN TIME/[id number] 05:26:00 Test Item Value Reference Range Interpretation [...] mechanical heart valves.CBC W/PLT COUNT & AUTO [id number] 05:20:00 Test Item Value Reference Range Interpretation [...] WBC 0-0 (test code = 413) VITAMIN [id number] 06:57:00 Test Item Value Reference Range Interpretation Comments VITAMIN B12 (BEAKER) (test code = 178 pg/mL 213-816 L 774) [id number] 06:57:00 Test Item Value Reference Range Interpretation Comments FERRITIN (BEAKER) (test code = 361) 21 ng/mL 5-275 FOLATE, [id number] 06:57:00 Test Item Value Reference Range Interpretation [...] 28 % 20-55 (test code = 2590) [id number] 05:59:00 Test Item Value Reference Range Interpretation Comments MAGNESIUM (BEAKER) (test code = 1.7 mg/dL 1.6-2.6 627) BASIC METABOLIC [id number] 05:59:00 Test Item Value Reference Range Interpretation [...] FOR DIALYSIS PATIEN TS. Specimen slightly ictericLIPID [id number] 05:59:00 Test Item Value Reference Range Interpretation [...] Very High >=190 Specimen slightly ictericHEPATIC FUNCTION [id number] 05:59:00 Test Item Value Reference Range Interpretation [...] = 41 U/L 6-55 347) Specimen slightly [id number] 05:59:00 Test Item Value Reference Range Interpretation Comments LIPASE (BEAKER) (test code = 749) 35 U/L 8-78 Specimen slightly ictericPROTHROMBIN [id number] 05:58:00 Test Item Value Reference Range Interpretation [...] mechanical heart valves.CBC W/PLT COUNT & AUTO [id number] 05:37:00 Test Item Value Reference Range Interpretation [...] PERCENT (BEAKER) (test code = 2801) POCT-HEMOGLOBIN [id number] 06:12:00 Test Item Value Reference Range Interpretation Comments POC-HEMOGLOBIN METER 8.6 g/dL 12.0-15.[address] [facility] ([facility]) (test code = [place] [id number])
[2020-05-06] MEDS ORDERED: NA CHLORIDE 0.9% 0 ML ONE (01:42)
[2020-05-06] MEDS ORDERED: NA CHLORIDE 0.9% 1,000 ML ONE (01:55)
[2020-05-06] MEDS ORDERED: NA CHLORIDE 0.9% 2,000 ML ONE (01:57)
[2020-05-06 02:07] LABS: Absolute Lymphocytes (CBC) 0.7 K/uL (0.7-4.9); Basophils % 0.2 % (0-1.3); Hematocrit 30.3 % (36.0-45.0); Lymphocytes % 7.1 % (15.3-44.8); MPV 8.3 fL (7.6-11.3); RBC Red Blood Cell Count 3.57 M/uL (3.86-4.86)
[2020-05-06 02:25] LABS: ALT/SGPT 43 U/L (12-78); AST/SGOT 24 U/L (15-37); Alkaline Phosphatase 145 U/L (45-117); BUN Blood Urea Nitrogen 11 mg/dL (7-18); Bicarbonate 24 mmol/L (21-32); Bilirubin Direct 0.3 mg/dL (0-0.2); Bilirubin Total 1.1 mg/dL (0.2-1.0); Glucose Level 135 mg/dL (74-106); Lipase 285 U/L (73-393); Protein, Total 6.5 g/dL (6.4-8.2); Sodium Level 143 mmol/L (136-145); Troponin (Emerg Dept Use Only) < 0.02 ng/mL (0.0-0.045)
[2020-05-06] MEDS ORDERED: KETOROLAC 30 MG/ML INJ ONE (02:37)
[2020-05-06] MEDS ORDERED: METHYLPREDNISOLONE 125 MG INJ ONE (02:52)
[2020-05-06] MEDS ORDERED: IPRATROPIUM BROM 0.5MG/2.5ML ONE (02:53)
[2020-05-06] MEDS ORDERED: ALBUTEROL 2.5 MG/3 ML NEB SOL ONE (02:53)
[2020-05-06 03:22] LABS: Anisocytosis SLIGHT; Blood Morphology Comment NOTED (NOT SEEN); Platelet Estimate DECR
[2020-05-06 03:23] LABS: Urine Blood NEGATIVE (NEG); Urine Glucose NEGATIVE (NEG); Urine Protein NEGATIVE (NEG)
[2020-05-06 03:32] LABS: Urine Amorphous Sediment 3+ /HPF (NONE SEEN); Urine Bacteria <20 /HPF (<20); Urine RBC <5 /HPF (NONE SEEN); Urine Urothelial Cells <5 /HPF (NONE SEEN)
--- NOTE | 2020-05-06 04:00 | EDPHYS ---
Physician Documentation [facility] Name: Zenaida Goss Age: 60 yrs Sex: Female : 1960 Arrival Date: 05/06/2020 Time: 01:01 Bed 7 Private MD: ED Physician Florian Jewell HPI: 05/06 02:20 This 60 yrs old Female presents to ER via Ambulatory with complaints of ps1 Breathing Difficulty. 02:20 patient has reported bilateral pneumonia (likely viral per rads report) and came over ps1 from [place] after she said that it would be 9 hours for admission due to COVID pandemic. Was given azithromycin. No hypoxia. Speaking in 2-3 word sentences. Hx of pneumonia in past. Has cirrhosis. . Historical: - Allergies: :13 Morphine (Anaphylaxis); em - PMHx: :13 Anemia; breast cancer; Cirrhosis; fatty liver; Pancreatitis; varices; em - PSHx: 01:13 Appendectomy; Cholecystectomy; Hysterectomy; Lumpectomy; em - Immunization history:: Adult Immunizations up to date. - Social history:: Smoking status: Patient denies any tobacco usage or history of. ROS: 02:20 Respiratory: Negative for shortness of breath, cough, wheezing, and pleuritic chest ps1 pain, Abdomen/GI: Negative for abdominal pain, nausea, vomiting, diarrhea, and constipation, MS/Extremity: Negative for injury and deformity, Skin: Negative for injury, rash, and discoloration, Neuro: Negative for headache, weakness, numbness, tingling, and seizure. 02:20 Constitutional: Positive for body aches, fatigue. 02:20 Respiratory: Positive for cough, with no reported sputum, wheezing. Exam: 02:20 Constitutional: This is a well developed, well nourished patient who is awake, alert, ps1 and in no acute distress. Head/Face: Normocephalic, atraumatic. Chest/axilla: Normal chest wall appearance and motion. Nontender with no deformity. No lesions are appreciated. Cardiovascular: Regular rate and rhythm. No gallops, murmurs, or rubs. Normal PMI, no JVD. No pulse deficits. 02:20 MS/ Extremity: Pulses equal, no cyanosis. Neurovascular intact. Full, normal range of motion. Neuro: Awake and alert, GCS 15, oriented to person, place, time, and situation. Cranial nerves II-XII grossly intact. Sensory grossly intact. Psych: Awake, alert, with orientation to person, place and time. Behavior, mood, and affect are within normal limits. 02:20 Respiratory: the patient does not display signs of respiratory distress, Respirations: shallow respirations, that is moderate, Breath sounds: are clear throughout. 03:31 ECG was reviewed by the Attending Physician. ps1 Vital Signs: 01:10 BP 157 / 77; Pulse 90; Resp 24; Temp 98.2(O); Pulse Ox 100% on R/A; em 01:38 Weight 113.4 kg; rv 03:28 Pulse 82; Resp 18; Pulse Ox 99% on R/A; mg2 03:40 BP 109 / 91; Pulse 83; Resp 20; Pulse Ox 100% on R/A; mg2 MDM: 01:06 Patient medically screened. ps1 04:00 Data reviewed: vital signs, nurses notes, lab test result(s), radiologic studies, and ps1 as a result, I will discharge patient. Counseling: I had a detailed discussion with the patient and/or guardian regarding: the historical points, exam findings, and any diagnostic results supporting the discharge/admit diagnosis, lab results, radiology results, the need for outpatient follow up, to return to the emergency department if symptoms worsen or persist or if there are any questions or concerns that arise at home. ED course: Normal EKG, CT scan. No COVID or other changes appreciated on CT. Negative trop. No hypoxia during evaluation or on road test. Continue course of medications previously prescribed. Stable for discharge. . 05/06 01:20 Order name: Basic Metabolic Panel 05/06 01:20 Order name: Blood Culture Adult (2) 05/06 01:20 Order name: CBC with Diff 05/06 01:20 Order name: Lactate 05/06 01:20 Order name: LFT's 05/06 01:20 Order name: Lipase ps1 05/06 01:20 Order name: Procalcitonin; Complete Time: 02:56 05/06 01:20 Order name: Troponin (emerg Dept Use Only); Complete Time: 02:28 05/06 01:20 Order name: Urine Microscopic Only; Complete Time: 04:01 05/06 01:20 Order name: Basic Metabolic Panel; Complete Time: 02:28 EDMS 05/06 01:20 Order name: Blood Culture EDMS 05/06 01:21 Order name: CBC with Automated Diff; Complete Time: 03:30 EDMS 05/06 01:21 Order name: Lactate; Complete Time: 02:28 EDMS 05/06 01:21 Order name: Liver (Hepatic) Function; Complete Time: 02:28 EDMS 05/06 01:20 Order name: Accucheck; Complete Time: : ps1 05/06 01:20 Order name: Cardiac monitoring; Complete Time: : ps1 05/06 01:20 Order name: EKG - Nurse/Tech; Complete Time: :38 ps1 05/06 01:20 Order name: IV Saline Lock - Large Bore; Complete Time: ps1 05/06 01:20 Order name: Labs collected and sent; Complete Time: 38 ps1 05/06 01:20 Order name: O2 Per Protocol; Complete Time: :44 ps1 05/06 01:20 Order name: O2 Sat Monitoring; Complete Time: :44 ps1 05/06 01:20 Order name: Urine Dipstick-Ancillary (obtain specimen); Complete Time: 02:24 ps1 05/06 01:20 Order name: CT Chest W/ Con ps1 05/06 01:21 Order name: Lipase; Complete Time: 02:28 EDMS 05/06 02:21 Order name: Manual Differential; Complete Time: 03:30 EDMS 05/06 02:24 Order name: Urine Dipstick--Ancillary (enter results); Complete Time: 03:30 ds4 EC:22 Rate is 85 beats/min. Rhythm is regular. QRS [place] is Normal. MD interval is normal. QRS ps1 interval is normal. QT interval is normal. No Q waves. T waves are Normal. No ST changes noted. Clinical impression: Normal ECG. Interpreted by me. Administered Medications: 01:45 Drug: NS 0.9% (30 ml/kg) 30 ml/kg Route: IV; Rate: bolus; Site: left wrist; mg2 02:24 Drug: TORadol - Ketorolac 15 mg Route: IVP; Site: left wrist; mg2 03:29 Follow up: Response: No adverse reaction mg2 02:54 Drug: Albuterol - atroVENT (3:1) (2.5 mg - 0.5 mg) 3 ml Route: Nebulizer; mg2 03:29 Follow up: Response: No adverse reaction mg2 02:54 Not Given (Patient Refused): SOLU-Medrol 125 mg IVP once mg2 Disposition: 05/06/20 03:59 Discharged to Home. Impression: Acute bronchitis. - Condition is Stable. - Discharge Instructions: Acute Bronchitis, Adult. - Medication Reconciliation Form, Thank You Letter, Antibiotic Education, Prescription Opioid Use form. - Follow up: Madhu Albarado MD; When: 48 Hours; Reason: Recheck today's complaints, Continuance of care. Follow up: Emergency Department; When: As needed; Reason: Trouble breathing, Worsening of condition. - Problem is an ongoing problem. - Symptoms are unchanged. Signatures: Dispatcher [employer] Odell Ashton, RN RN em Florian Jewell MD MD ps1 Jovanny Cantor RN RN mg2 Corrections: (The following items were deleted from the chart) 04:12 03:59 05/06/2020 03:59 Discharged to Home. Impression: Acute bronchitis. Condition is mg2 Stable. Forms are Medication Reconciliation Form, Thank You Letter, Antibiotic Education, Prescription Opioid Use. Follow up: Madhu Albarado; When: 48 Hours; Reason: Recheck today's complaints, Continuance of care. Follow up: Emergency Department; When: As needed; Reason: Trouble breathing, Worsening of condition. Problem is an ongoing problem. Symptoms are unchanged. ps1
--- NOTE | 2020-05-06 04:00 | ER ---
Nurse's Notes [facility] Name: Zenaida Goss Age: 60 yrs Sex: Female : 1960 Arrival Date: 05/06/2020 Time: : Bed 7 Private MD: Diagnosis: Acute bronchitis Presentation: 05/06 01:10 Chief complaint: Patient states: diagnosed with bentley. pneumonia yesterday, was neg. for em covid x 2, was given steroids and z-pack, also reports epigastric pain that radiates to back on exertion, denies fever. Coronavirus screen: Coronavirus screen: Client denies travel out of the [place] in the last 14 days. Ebola Screen: Patient negative for fever greater than or equal to 101.5 degrees Fahrenheit, and additional compatible Ebola Virus Disease symptoms Patient denies exposure to infectious person. Patient denies travel to an Ebola-affected area in the 21 days before illness onset. No symptoms or risks identified at this time. Initial Sepsis Screen: Does the patient meet any 2 criteria? RR > 20 per min. No. Patient's initial sepsis screen is negative. Does the patient have a suspected source of infection? Yes: Productive cough/pneumonia. Risk Assessment: Do you want to hurt yourself or someone else? Patient reports no desire to harm self or others. Onset of symptoms was May 05, 2020. 01:10 Method Of Arrival: Ambulatory em 01:10 Acuity: TANK 3 em Triage Assessment: 03:00 General: Appears in no apparent distress. comfortable. Respiratory: Airway is patent. mg2 Respiratory: Onset: The symptoms/episode began/occurred gradually, the patient has mild shortness of breath. Historical: - Allergies: 01:13 Morphine (Anaphylaxis); em - PMHx: 01:13 Anemia; breast cancer; Cirrhosis; fatty liver; Pancreatitis; varices; em - PSHx: 01:13 Appendectomy; Cholecystectomy; Hysterectomy; Lumpectomy; em - Immunization history:: Adult Immunizations up to date. - Social history:: Smoking status: Patient denies any tobacco usage or history of. Screenin:47 Abuse screen: Denies threats or abuse. Denies injuries from another. Nutritional mg2 screening: No deficits noted. Tuberculosis screening: No symptoms or risk factors identified. Fall Risk IV access (20 points). Assessment: 01:45 General: Appears in no apparent distress. comfortable, Behavior is calm, cooperative. mg2 Pain: Complains of pain in chest. Neuro: Level of Consciousness is awake, alert, obeys commands, Oriented to person, place, time, situation. Cardiovascular: Rhythm is sinus rhythm. Respiratory: Airway is patent Respiratory effort is even, unlabored, Respiratory pattern is regular, symmetrical, Respiratory: Reports shortness of breath. GI: No signs and/or symptoms were reported involving the gastrointestinal system. : No signs and/or symptoms were reported regarding the genitourinary system. EENT: No signs and/or symptoms were reported regarding the EENT system. Derm: Skin is intact, is healthy with good turgor, Skin is pink, warm \T\ dry. normal. Musculoskeletal: Circulation, motion, and sensation intact. Capillary refill < 3 seconds. 03:28 Reassessment: Patient appears in no apparent distress at this time. Patient and/or mg2 family updated on plan of care and expected duration. Pain level reassessed. Patient is alert, oriented x 3, equal unlabored respirations, skin warm/dry/pink. 04:11 Reassessment: Patient states feeling better. Patient states symptoms have improved. mg2 Vital Signs: 01:10 BP 157 / 77; Pulse 90; Resp 24; Temp 98.2(O); Pulse Ox 100% on R/A; em 01:38 Weight 113.4 kg; rv 03:28 Pulse 82; Resp 18; Pulse Ox 99% on R/A; mg2 03:40 BP 109 / 91; Pulse 83; Resp 20; Pulse Ox 100% on R/A; mg2 ED Course: 01:01 Patient arrived in ED. cl3 01:05 Florian Jewell MD is Attending Physician. ps1 01:12 Triage completed. em 01:13 Arm band placed on. em 01:24 Jovanny Cantor, ERIC is Primary Nurse. mg2 01:40 First set of blood cultures drawn by me, Second set of blood cultures drawn by me. ds4 Inserted saline lock: 22 gauge in left wrist, using aseptic technique. Blood collected. 01:47 Patient has correct armband on for positive identification. mg2 01:47 No provider procedures requiring assistance completed. mg2 02:53 CT Chest W/ Con In Process Unspecified. EDMS 03:59 Madhu Albarado MD is Referral Physician. ps1 04:11 IV discontinued, intact, bleeding controlled, No redness/swelling at site. Pressure mg2 dressing applied. Administered Medications: 01:45 Drug: NS 0.9% (30 ml/kg) 30 ml/kg Route: IV; Rate: bolus; Site: left wrist; mg2 02:24 Drug: TORadol - Ketorolac 15 mg Route: IVP; Site: left wrist; mg2 03:29 Follow up: Response: No adverse reaction mg2 02:54 Drug: Albuterol - atroVENT (3:1) (2.5 mg - 0.5 mg) 3 ml Route: Nebulizer; mg2 03:29 Follow up: Response: No adverse reaction mg2 02:54 Not Given (Patient Refused): SOLU-Medrol 125 mg IVP once mg2 Outcome: 03:59 Discharge ordered by MD. ps1 04:11 Discharged to home ambulatory. mg2 04:11 Condition: good 04:11 Discharge instructions given to patient, Instructed on discharge instructions, follow up and referral plans. Demonstrated understanding of instructions, follow-up care. 04:12 Patient left the ED. mg2 Signatures: Dispatcher [employer] Odell Ashton RN RN Modesto Ernandez ds4 Florian Jewell MD MD ps1 Jovanny Cantor RN RN mg2 Pop Ochoa RN RN rv Sejal Long cl3
[2020-05-06 04:19] VITALS: TEMP 98.2
[2020-05-06 04:22] VITALS: BP 109/91; O2SAT 100
--- NOTE | 2020-05-06 11:48 | RAD REPORT ---
EXAM DESCRIPTION: CT - Thorax W/ Con - 05/06/2020 6:35 am CLINICAL HISTORY: The patient is 60 years old and is Female; covid? bilateral pneumonia TECHNIQUE: Axial computed tomography images of the chest with intravenous contrast. Sagittal and c oronal reformatted images were created and reviewed. This CT exam was performed using one or more o f the following dose reduction techniques: automated exposure control, adjustment of the mA and/or kV according to patient size, and/or use of iterative reconstruction technique. COMPARISON: No relevant prior studies available. FINDINGS: LUNGS: The lungs are clear of focal opacity, mass, or consolidation. PLEURAL SPACE: Unremarkable. No pneumothorax. No significant effusion. HEART: No cardiomegaly. No pericardial effusion. BONES/JOINTS: Mild multilevel degenerative changes spine is present. SOFT TISSUES: Postsurgical change of the right breast is noted. VASCULATURE: Unremarkable. No thoracic aortic aneurysm. LYMPH NODES: Unremarkable. No enlarged lymph nodes. LIVER: The liver has a cirrhotic contour. GALLBLADDER AND BILE DUCTS: Surgical clips are present in the right upper quadrant, consistent w ith previous cholecystectomy. SPLEEN: The spleen is enlarged. IMPRESSION: 1. No acute findings on this noncontrasted CT of the chest to explain the patient's sy mptoms. 2. Cirrhotic liver and splenomegaly. Electronically signed by: Evelyne Snyder MD 05/06/2020 3:03 AM GLASS BULB MACHINE ADJUSTER Due to temporary technical issues with the PACS/Fluency reporting system, reports are being signed by the in house radiologist without review as a courtesy to ensure prompt reporting. The interpreting r adiologist is fully responsible for the content of the report.
--- NOTE | 2020-05-07 06:31 | EKG ---
Test Date: 2020-05-06 Test Time: 01:22:03 [place] Helper: RV MEASUREMENT RESULTS: Intervals: Rate: 85 TX: 142 QRSD: 100 QT: 406 QTc: 483 [place]: P: 55 TX: 142 QRS: 79 T: 41 INTERPRETIVE STATEMENTS: Normal sinus rhythm Prolonged QT Abnormal ECG Compared to ECG 03/19/2020 05:54:52 Prolonged QT interval now present Electronically Signed On 05-07-20 06:27:22 AIR QUALITY SPECIALIST by Miguel Crenshaw
== END 2020-05-06 04:12 | disposition home or self-care (01) ==
LOC: ER 00:59
DX: J20.9 Acute bronchitis, unspecified (principal); Z88.5 Allergy status to narcotic agent; Z85.3 Personal history of malignant neoplasm of breast
CPT/HCPCS: 93005; 87040 ×2; 85025; 80048; 36415; 80076; 83605; 84484; 83690; 84145; 71260; Q9967; J7030 ×2; 81003; 81015; 96374; 96375; 99285; J2930

== ENCOUNTER 2020-05-23 00:58 | Observation (INO) | payer OTHER ==
[2020-05-23] MEDS ORDERED: ONDANSETRON 4 MG/2 ML VIAL ONE ×2 (02:15→05:29)
[2020-05-23] MEDS ORDERED: FENTANYL CITR 100 MCG/2 ML ONE (02:15)
[2020-05-23] MEDS ORDERED: NA CHLORIDE 0.9% 1,000 ML ONE (02:16)
[2020-05-23 02:19] LABS: Absolute Lymphocytes (CBC) 0.5 K/uL (0.7-4.9); Basophils % 0.8 % (0-1.3); Hematocrit 29.2 % (36.0-45.0); Lymphocytes % 23.2 % (15.3-44.8); MPV 8.1 fL (7.6-11.3); RBC Red Blood Cell Count 3.51 M/uL (3.86-4.86)
[2020-05-23 02:20] LABS: Protime INR 1.14
[2020-05-23] MEDS ORDERED: FAMOTIDINE 20 MG/2 ML VIAL IV ONE ×2 (02:29→09:07)
[2020-05-23 02:37] LABS: ALT/SGPT 45 U/L (12-78); AST/SGOT 37 U/L (15-37); Albumin 2.9 g/dL (3.4-5.0); Alkaline Phosphatase 129 U/L (45-117); BUN Blood Urea Nitrogen 9 mg/dL (7-18); Bicarbonate 27 mmol/L (21-32); Bilirubin Direct 0.5 mg/dL (0-0.2); Bilirubin Total 1.3 mg/dL (0.2-1.0); Glucose Level 115 mg/dL (74-106); Lipase 274 U/L (73-393); Magnesium 2.1 mg/dL (1.8-2.4); NT PRO-BNP 21 pg/mL (<125); Potassium 3.7 mmol/L (3.5-5.1); Protein, Total 6.3 g/dL (6.4-8.2); Sodium Level 144 mmol/L (136-145); Troponin (Emerg Dept Use Only) < 0.02 ng/mL (0.0-0.045)
[2020-05-23 03:05] LABS: Anisocytosis 2+; Blood Morphology Comment NOTED (NOT SEEN); Platelet Estimate DECR; White Blood Cell Scan OK (OK)
[2020-05-23 03:06] LABS: Hypochromasia 2+; Ovalocytes 2+
[2020-05-23 03:20] LABS: Urine Blood NEGATIVE (NEG); Urine Glucose NEGATIVE (NEG); Urine Protein NEGATIVE (NEG); Urine pH 7.5 (5.0-7.0)
[2020-05-23] MEDS ORDERED: ALBUTEROL 2.5 MG/3 ML NEB SOL NEB PRN (03:27)
[2020-05-23] MEDS ORDERED: MORPHINE 2 MG/ML SYR IV PRN (03:27)
[2020-05-23 04:44] VITALS: BMI 43.4
[2020-05-23] MEDS ORDERED: HYDROMORPHONE HCL 1 MG/ML INJ IV ONE (04:51)
--- NOTE | 2020-05-23 05:01 | P.HP ---
Certification for Inpatient Patient admitted to: Observation With expected LOS: <2 Midnights Patient will require the following post-hospital care: None Practitioner: I am a practitioner with admitting privileges, knowledge of patient current condition, hospital course, and medical plan of care. Services: Services provided to patient in accordance with Admission requirements found in Title 42 Section 412.3 of the Code of Federal Regulations Patient History Date of Service: 05/23/20 Reason for admission: abdominal pain History of Present Illness: 60 yr old female with Obesity , Liver cirrhosis due to ANAYA , recurrent pancreatitis , follow with GI at [place] , on home dose of creon but reportedly ran out few days ago admitted for recurrent abdominal pain - campy in nature, non radiating , associated with nausea and vomiting .symptoms similar to prior episodes of pancreatitis flare . She presented to ER and CT abdomen with findings of recurrent pancreatitis Allergies morphine Allergy (Severe, Verified 11/19/19 13:14) Anaphylaxis Home Medications: Cyanocobalamin [Vitamin B-12] 1,000 mcg PO DAILY 10/22/19 Lactulose 15 ml PO BID 10/22/19 - Past Medical/Surgical History Diabetic: No -: Cirrhosis of the liver secondary to fatty liver -: History pancreatitis -: History of breast cancer -: ulcers -: Gastroesophageal varices -: Gastric polyps -: History of AV malformation of the colon -: Pancytopenia -: Iron deficiency anemia -: Polyps removed in stomach with banding -: Cholecystectomy -: Appendectomy -: Tonsillectomy -: Right breast lumpectomy with lymph node removal Psychosocial/ Personal History: She is , has 4 children, 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 - Family History Brother -: Diabetes, Kidney disease Notes: Quadruple Bypass Sister -: Heart disease, Diabetes, Cancer Father -: Heart disease, Lung disease Mother -: Blood disorders, Liver disease - Social History Smoking Status: Unknown if ever smoked Alcohol use: No CD- Drugs: No Caffeine use: No Review of Systems 10-point ROS is otherwise unremarkable Physical Examination - Physical Exam General: Alert, In no apparent distress, Oriented x3, Obese HEENT: Atraumatic, Normocephalic, PERRLA Neck: Supple, 2+ carotid pulse no bruit Respiratory: Clear to auscultation bilaterally, Normal air movement Cardiovascular: Normal pulses, Regular rate/rhythm, Normal S1 S2 Gastrointestinal: Normal bowel sounds, Soft and benign, Non-distended, Tenderness Musculoskeletal: No clubbing, No swelling Integumentary: No rashes, No breakdown, No significant lesion Neurological: Normal gait, Normal speech, Normal strength at 5/5 x4 extr, Normal tone - Studies Laboratory Data (last 24 hrs) 05/23/20 02:00: Triglycerides 67, Cholesterol 177, HDL Cholesterol 60, Cholesterol/HDL Ratio 2.95 05/23/20 02:00: PT 13.1 H, INR 1.14 05/23/20 02:00: WBC 2.20 L, Hgb 9.3 L, Hct 29.2 L, Plt Count 48 L* 05/23/20 02:00: Sodium 144, Potassium 3.7, BUN 9, Creatinine 0.59, Glucose 115 H, Magnesium 2.1, Total Bilirubin 1.3 H, AST 37, ALT 45, Alkaline Phosphatase 129 H, Lipase 274 Imagings Data: CT abdomen reviewed Assessment and Plan - Problems (Diagnosis) (1) Acute on chronic pancreatitis Onset Date: 05/30/18 Current Visit: No Status: Acute (2) Cirrhosis of liver Onset Date: 12/23/14 Current Visit: No Status: Chronic (3) History of esophageal varices Current Visit: No Status: Chronic - Plan # Recurrent Acute on Chronic Pancreatitis - may be due to med non ahdernce - will obtain home meds list and restart Creon -if she is actually on it already -keep NPO for now - monitor lipase levels - pain meds as needed - may need GI eval if non improving pain symptoms - gentle IVF # DVT prop- sc heparin # Full code - Advance Directives Does patient have a Living Will: No Does patient have a Durable POA for Healthcare: No Physician Review: Patient Assessed, Agree with Above Assessment and Plan Time Spent Managing Pts Care (In Minutes): 65
[2020-05-23] MEDS ORDERED: HYDRALAZINE HCL 20 MG/ML VIAL IV PRN (05:04)
[2020-05-23] MEDS ORDERED: LORAZEPAM 0.5 MG TABLET PO PRN (05:04)
[2020-05-23] MEDS: ONDANSETRON 4 MG/2 ML VIAL IV PRN ×3 (05:18→21:59)
[2020-05-23] MEDS ORDERED: HYDROMORPHONE HCL 1 MG/ML INJ ONE (05:29)
[2020-05-23 05:38] LABS: Protime INR 1.16
[2020-05-23 05:55] LABS: Magnesium 1.7 mg/dL (1.8-2.4)
[2020-05-23] MEDS ORDERED: D5 0.9 NS 1,000 ML IV SCH (06:00)
[2020-05-23] MEDS ORDERED: D5 0.9 NS 1,000 ML IV ONE (06:28)
[2020-05-23] MEDS: INSULIN -REGULAR HUMAN 50 UNIT/0.5 ML ML SQ SCH ×4 (07:30→20:58)
--- NOTE | 2020-05-23 08:10 | RAD REPORT ---
EXAM DESCRIPTION: Igor Single View05/23/2020 2:14 am CLINICAL HISTORY: Cough COMPARISON: 2019 FINDINGS: The lungs appear clear of acute infiltrate. The heart is borderline enlarged IMPRESSION: No acute abnormalities displayed
--- NOTE | 2020-05-23 08:29 | RAD REPORT ---
EXAM DESCRIPTION: CT - Abdomen Pelvis W Contrast - 05/23/2020 7:01 am CLINICAL HISTORY: The patient is 60 years old and is Female; ABD PAIN TECHNIQUE: Axial computed tomography images of the abdomen and pelvis with intravenous contrast. S agittal and coronal reformatted images were created and reviewed. This CT exam was performed using one or more of the following dose reduction techniques: automated exposure control, adjustment of t he mA and/or kV according to patient size, and/or use of iterative reconstruction technique. COMPARISON: No relevant prior studies available. FINDINGS: LUNG BASES: Unremarkable. No mass. No consolidation. ABDOMEN: LIVER: The liver has a nodular contour and is shrunken in appearance. GALLBLADDER AND BILE DUCTS: Surgical clips are present in the right upper quadrant, consistent w ith previous cholecystectomy. PANCREAS: Mild peripancreatic fluid and inflammation is suggested. SPLEEN: The spleen is enlarged and inhomogeneous. ADRENALS: Unremarkable. No mass. KIDNEYS AND URETERS: Unremarkable. The kidneys enhance symmetrically. No obstructing renal or ur eteral calculus is seen. No hydronephrosis or hydroureter. No perinephric fluid or stranding. STOMACH AND BOWEL: The stomach is decompressed. The small bowel is relatively normal in caliber. Stool is present throughout colon. There is no mucosal thickening or evidence of bowel obstruction. PELVIS: APPENDIX: No findings to suggest acute appendicitis. BLADDER: The bladder is not well distended. REPRODUCTIVE: Unremarkable as visualized. ABDOMEN and PELVIS: INTRAPERITONEAL SPACE: Unremarkable. No free air. No significant fluid collection. BONES/JOINTS: No acute fracture. SOFT TISSUES: The soft tissues are normal. VASCULATURE: Prominent varices are noted within the left upper quadrant No abdominal aortic an eurysm. LYMPH NODES: Unremarkable. No enlarged lymph nodes. IMPRESSION: 1. Findings suggest mild acute pancreatitis. 2. Cirrhotic liver, splenomegaly, and varices. Electronically signed by: Evelyne Snyder MD 05/23/2020 3:05 AM SOCIAL WORK PROFESSOR Due to temporary technical issues with the PACS/Fluency reporting system, reports are being signed by the in house radiologist without review as a courtesy to ensure prompt reporting. The interpreting r adiologist is fully responsible for the content of the report.
[2020-05-23] MEDS: FAMOTIDINE 20 MG/2 ML VIAL IV SCH ×2 (08:53→21:01)
[2020-05-23] MEDS: HYDROMORPHONE HCL 0.5 MG/0.5 ML INJ IV PRN ×3 (09:35→18:37)
[2020-05-23] MEDS ORDERED: HYDROMORPHONE HCL 0.5 MG/0.5 ML INJ ONE (09:48)
--- NOTE | 2020-05-23 12:58 | ER ---
Nurse's Notes [facility] Name: Zenaida Goss Age: 60 yrs Sex: Female : 1960 Arrival Date: 05/23/2020 Time: 01:13 Bed 7 Private MD: Diagnosis: Abdominal tenderness;Unspecified cirrhosis of liver-ANAYA;Acute pancreatitis Presentation: 05/23 01:28 Chief complaint: Patient states: abd pain that started 2 days ago, hx of pancreatitis, em nausea denies V/D. Coronavirus screen: Client denies travel out of the [place] in the last 14 days. Ebola Screen: Patient negative for fever greater than or equal to 101.5 degrees Fahrenheit, and additional compatible Ebola Virus Disease symptoms Patient denies exposure to infectious person. Patient denies travel to an Ebola-affected area in the 21 days before illness onset. No symptoms or risks identified at this time. Initial Sepsis Screen: Does the patient meet any 2 criteria? HR > 90 bpm. Does the patient have a suspected source of infection? No. Patient's initial sepsis screen is negative. Risk Assessment: Do you want to hurt yourself or someone else? Patient reports no desire to harm self or others. Onset of symptoms was May 23, 2020. 01:28 Method Of Arrival: Ambulatory em 01:28 Acuity: TANK 3 em Triage Assessment: 02:06 General: Appears. rv Historical: - Allergies: 01:23 Morphine (Anaphylaxis); em - Home Meds: 01:23 Lactulose Oral [Active]; em - PMHx: 01:23 Anemia; breast cancer; Cirrhosis; fatty liver; Pancreatitis; varices; em - PSHx: 01:23 Appendectomy; Cholecystectomy; Hysterectomy; Lumpectomy; em - Immunization history:: Adult Immunizations up to date. - Social history:: Smoking status: Patient denies any tobacco usage or history of. - Family history:: not pertinent. Screenin:46 Abuse screen: Denies threats or abuse. Denies injuries from another. Nutritional rr5 screening: No deficits noted. Tuberculosis screening: No symptoms or risk factors identified. Fall Risk IV access (20 points). Total Adames Fall Scale indicates No Risk (0-24 pts). Assessment: 02:06 General: Appears uncomfortable, obese, Behavior is calm, cooperative. Pain: Complains rv of pain in abdomen. Neuro: Level of Consciousness is awake, alert, obeys commands, Oriented to person, place, time, situation. Cardiovascular: Patient's skin is warm and dry. Respiratory: Airway is patent Respiratory effort is even, unlabored. GI: Abdomen is round non-distended, obese, Bowel sounds present X 4 quads. Abd is soft and non tender X 4 quads. Derm: Skin is intact. 02:28 Reassessment: platelet 48 candy from laboratory called, ED provider aware. rr5 Vital Signs: 01:28 BP 150 / 76; Pulse 94; Resp 18; Temp 98.0(O); Pulse Ox 100% on R/A; Weight 115.67 kg; em Height 5 ft. 4 in. (162.56 cm); Pain 9/10; 02:00 BP 138 / 65; Pulse 90; Resp 18; Pulse Ox 99% on R/A; rv 01:28 Body Mass Index 43.77 (115.67 kg, 162.56 cm) em ED Course: 01:13 Patient arrived in ED. ag3 01:23 Arm band placed on. em 01:25 Homero Terrell MD is Attending Physician. vicente 01:32 Triage completed. em 01:46 Pop Ochoa, ERIC is Primary Nurse. rv 01:46 Patient has correct armband on for positive identification. Placed in gown. Bed in low rr5 position. Call light in reach. Pulse ox on. NIBP on. 02:00 Inserted saline lock: 20 gauge in left antecubital area, using aseptic technique. Blood rv collected. 02:00 Initial lab(s) drawn, by ak, sent to lab. rv 02:21 XRAY Chest (1 view) In Process Unspecified. EDMS 02:54 CT Abd/Pelvis - IV Contrast Only In Process Unspecified. EDMS 03:12 Prema Lin MD is Hospitalizing Provider. vicente 04:02 No provider procedures requiring assistance completed. IV is patent, with fluids rv infusing freely, Patient admitted, IV remains in place. 11:10 Primary Nurse role handed off by Pop Ochoa, ERIC eb 12:57 Kadeem Merida, ERIC is Primary Nurse. jl7 Administered Medications: 02:00 Drug: NS 0.9% 1000 ml Route: IV; Rate: 75 ml/hr; Site: left antecubital; rr5 03:51 Follow up: Response: No adverse reaction; IV Status: Infusion continued upon admission rr5 02:00 Drug: Zofran (Ondansetron) 4 mg Route: IVP; Site: left antecubital; rr5 03:00 Follow up: Response: No adverse reaction rr5 02:07 Drug: fentaNYL (PF) 25 mcg {Note: rass 0.} Route: IVP; Site: left antecubital; rr5 03:14 Follow up: Response: No adverse reaction; Pain is increased; RASS: Alert and Calm (0) rr5 02:29 Drug: Pepcid 20 mg Route: IVP; Site: left antecubital; rr5 03:20 Follow up: Response: No adverse reaction rr5 03:14 Drug: fentaNYL (PF) 25 mcg Route: IVP; Site: left antecubital; rr5 03:51 Follow up: Response: No adverse reaction; Pain is decreased; RASS: Alert and Calm (0) rr5 03:22 Drug: NS 0.9% 500 ml Route: IV; Rate: bolus; Site: left antecubital; rr5 03:50 Follow up: Response: No adverse reaction; IV Status: Completed infusion; IV Intake: rr5 500ml Intake: 03:50 IV: 500ml; Total: 500ml. rr5 Outcome: 03:13 Decision to Hospitalize by Provider. vicente 04:03 Admitted to ER Hold. Please see [facility] for further documentation. rv 04:03 Condition: good 04:03 Instructed on the need for admit. 12:58 Patient left the ED. jl7 Signatures: Dispatcher [employer] Homero Mauro MD MD cha Munoz, Edgar, RN RN Kadeem Russell RN RN jl7 Cassandra Kennedy Ronaldo, RN RN Sandi Shepard Raymond RN RN rr5
--- NOTE | 2020-05-23 12:58 | EDPHYS ---
Physician Documentation [facility] Name: Zenaida Goss Age: 60 yrs Sex: Female : 1960 Arrival Date: 05/23/2020 Time: 01:13 Bed 7 Private MD: ED Physician Homero Terrell HPI: 05/23 01:57 This 60 yrs old Female presents to ER via Ambulatory with complaints of vicente Abdominal Pain. 01:57 The patient presents with abdominal pain in the upper abdomen, in the lower abdomen, vicente abdominal distention in the upper abdomen, in the lower abdomen. Onset: The symptoms/episode began/occurred 3 day(s) ago. The symptoms do not radiate. Associated signs and symptoms: Pertinent positives: nausea and vomiting. The symptoms are described as constant. Modifying factors: The symptoms are alleviated by nothing, the symptoms are aggravated by nothing. Severity of pain: At its worst the pain was mild moderate in the emergency department the pain is unchanged. The patient has not experienced similar symptoms in the past. Historical: - Allergies: 01:23 Morphine (Anaphylaxis); em - Home Meds: 01:23 Lactulose Oral [Active]; em - PMHx: 01:23 Anemia; breast cancer; Cirrhosis; fatty liver; Pancreatitis; varices; em - PSHx: 01:23 Appendectomy; Cholecystectomy; Hysterectomy; Lumpectomy; em - Immunization history:: Adult Immunizations up to date. - Social history:: Smoking status: Patient denies any tobacco usage or history of. - Family history:: not pertinent. ROS: 01:57 Constitutional: Negative for fever, chills, and weight loss, Eyes: Negative for injury, vicente pain, redness, and discharge, ENT: Negative for injury, pain, and discharge, Neck: Negative for injury, pain, and swelling, Cardiovascular: Negative for chest pain, palpitations, and edema, Respiratory: Negative for shortness of breath, cough, wheezing, and pleuritic chest pain, Back: Negative for injury and pain, : Negative for injury, bleeding, discharge, and swelling, MS/Extremity: Negative for injury and deformity, Skin: Negative for injury, rash, and discoloration, Neuro: Negative for headache, weakness, numbness, tingling, and seizure, Psych: Negative for depression, anxiety, suicide ideation, homicidal ideation, and hallucinations, Allergy/Immunology: Negative for hives, rash, and allergies, Endocrine: Negative for neck swelling, polydipsia, polyuria, polyphagia, and marked weight changes, Hematologic/Lymphatic: Negative for swollen nodes, abnormal bleeding, and unusual bruising. 01:57 Abdomen/GI: Positive for abdominal pain, nausea and vomiting, of the right upper quadrant and left upper quadrant. Exam: 01:57 Constitutional: This is a well developed, well nourished patient who is awake, alert, vicente and in no acute distress. Head/Face: Normocephalic, atraumatic. Eyes: Pupils equal round and reactive to light, extra-ocular motions intact. Lids and lashes normal. Conjunctiva and sclera are non-icteric and not injected. Cornea within normal limits. Periorbital areas with no swelling, redness, or edema. ENT: Nares patent. No nasal discharge, no septal abnormalities noted. Tympanic membranes are normal and external auditory canals are clear. Oropharynx with no redness, swelling, or masses, exudates, or evidence of obstruction, uvula midline. Mucous membranes moist. Neck: Trachea midline, no thyromegaly or masses palpated, and no cervical lymphadenopathy. Supple, full range of motion without nuchal rigidity, or vertebral point tenderness. No Meningismus. Chest/axilla: Normal chest wall appearance and motion. Nontender with no deformity. No lesions are appreciated. Cardiovascular: Regular rate and rhythm with a normal S1 and S2. No gallops, murmurs, or rubs. Normal PMI, no JVD. No pulse deficits. Respiratory: Lungs have equal breath sounds bilaterally, clear to auscultation and percussion. No rales, rhonchi or wheezes noted. No increased work of breathing, no retractions or nasal flaring. Back: No spinal tenderness. No costovertebral tenderness. Full range of motion. Female : Normal external genitalia. Skin: Warm, dry with normal turgor. Normal color with no rashes, no lesions, and no evidence of cellulitis. MS/ Extremity: Pulses equal, no cyanosis. Neurovascular intact. Full, normal range of motion. Neuro: Awake and alert, GCS 15, oriented to person, place, time, and situation. Cranial nerves II-XII grossly intact. Motor strength 5/5 in all extremities. Sensory grossly intact. Cerebellar exam normal. Normal gait. Psych: Awake, alert, with orientation to person, place and time. Behavior, mood, and affect are within normal limits. 01:57 Abdomen/GI: Inspection: distension, that is moderate, Bowel sounds: normal, Palpation: mild abdominal tenderness, in the right upper quadrant and left upper quadrant, Liver: no appreciated palpable abnormalities, Hernia: not appreciated. 03:13 ECG was reviewed by the Attending Physician. [facility] Vital Signs: 01:28 BP 150 / 76; Pulse 94; Resp 18; Temp 98.0(O); Pulse Ox 100% on R/A; Weight 115.67 kg; em Height 5 ft. 4 in. (162.56 cm); Pain 9/10; 02:00 BP 138 / 65; Pulse 90; Resp 18; Pulse Ox 99% on R/A; rv 01:28 Body Mass Index 43.77 (115.67 kg, 162.56 cm) em MDM: 01:25 Patient medically screened. [facility] 01:57 Differential diagnosis: diverticulitis, gastritis, non-specific abd pain, pancreatitis, vicente Peptic Ulcer Disease, urinary tract infection. Data reviewed: vital signs, nurses notes, lab test result(s), EKG, radiologic studies, CT scan. Data interpreted: digital forensic examiner: rate is 94 beats/min, rhythm is regular. Test interpretation: by ED physician or midlevel provider: ECG, plain radiologic studies. Counseling: I had a detailed discussion with the patient and/or guardian regarding: the historical points, exam findings, and any diagnostic results supporting the discharge/admit diagnosis, lab results, radiology results. 05/23 01:57 Order name: Basic Metabolic Panel [facility] 05/23 01:57 Order name: CBC with Diff vicente 05/23 01:57 Order name: LFT's [facility] 05/23 01:57 Order name: Magnesium [facility] 05/23 01:57 Order name: NT PRO-BNP; Complete Time: 02:58 [facility] 05/23 01:57 Order name: PT-INR; Complete Time: 02:36 [facility] 05/23 01:57 Order name: Troponin (emerg Dept Use Only); Complete Time: 02:58 [facility] 05/23 01:57 Order name: Lipase; Complete Time: 02:58 [facility] 05/23 01:58 Order name: Basic Metabolic Panel; Complete Time: 02:37 ED[facility] 05/23 01:58 Order name: CBC with Automated Diff; Complete Time: 03:11 [facility] 05/23 01:58 Order name: Liver (Hepatic) Function; Complete Time: 02:58 ED[facility] 05/23 01:58 Order name: Magnesium; Complete Time: 02:58 [facility] 05/23 02:28 Order name: CBC Smear Scan; Complete Time: 03:11 ED[facility] 05/23 02:34 Order name: CREATININE WHOLE BLOOD; Complete Time: 02:36 [facility] 05/23 03:14 Order name: Urine Dipstick--Ancillary (enter results) tt3 05/23 03:16 Order name: Lipid Profile [facility] 05/23 03:16 Order name: Lipid Profile [facility] 05/23 03:31 Order name: Protime (+INR) [facility] 05/23 03:31 Order name: PTT, Activated Partial Thromb [facility] 05/23 03:31 Order name: Comprehensive Metabolic Panel [facility] 05/23 03:31 Order name: Comprehensive Metabolic Panel [facility] 05/23 03:31 Order name: CBC with Automated Diff [facility] 05/23 03:31 Order name: CBC with Automated Diff [facility] 05/23 03:43 Order name: COVID-19 : Document "Date of Symptom Onset" if Symptomatic. tt3 05/23 04:51 Order name: SARS-COV-2 RT PCR [facility] 05/23 05:55 Order name: Magnesium [facility] 05/23 05:55 Order name: Lipase [facility] 05/23 08:18 Order name: Glucose, Ancillary Testing [facility] 05/23 12:33 Order name: Glucose, Ancillary Testing [facility] 05/23 01:57 Order name: XRAY Chest (1 view) [facility] 05/23 01:57 Order name: EKG; Complete Time: 01:58 [facility] 05/23 01:57 Order name: Cardiac monitoring; Complete Time: 02:30 [facility] 05/23 01:57 Order name: EKG - Nurse/Tech; Complete Time: 02:30 [facility] 05/23 01:57 Order name: IV Saline Lock; Complete Time: 02:30 [facility] 05/23 01:57 Order name: Labs collected and sent; Complete Time: 02:30 [facility] 05/23 01:57 Order name: O2 Per Protocol; Complete Time: 02:30 [facility] 05/23 01:57 Order name: O2 Sat Monitoring; Complete Time: 02:30 [facility] 05/23 01:57 Order name: CT Abd/Pelvis - IV Contrast Only [facility] 05/23 03:31 Order name: CONS Pharmacy Consult [facility] 05/23 03:31 Order name: NPO [facility] EC:13 Rate is 86 beats/min. Rhythm is regular. QRS [place] is Normal. LA interval is normal. QRS vicente interval is normal. QT interval is prolonged at 428 msec. No Q waves. T waves are Normal. No ST changes noted. Clinical impression: NSR w/ Non-specific ST/T Changes and No evidence of ischemia. Interpreted by me. Administered Medications: 02:00 Drug: NS 0.9% 1000 ml Route: IV; Rate: 75 ml/hr; Site: left antecubital; rr5 03:51 Follow up: Response: No adverse reaction; IV Status: Infusion continued upon admission rr5 02:00 Drug: Zofran (Ondansetron) 4 mg Route: IVP; Site: left antecubital; rr5 03:00 Follow up: Response: No adverse reaction rr5 02:07 Drug: fentaNYL (PF) 25 mcg {Note: rass 0.} Route: IVP; Site: left antecubital; rr5 03:14 Follow up: Response: No adverse reaction; Pain is increased; RASS: Alert and Calm (0) rr5 02:29 Drug: Pepcid 20 mg Route: IVP; Site: left antecubital; rr5 03:20 Follow up: Response: No adverse reaction rr5 03:14 Drug: fentaNYL (PF) 25 mcg Route: IVP; Site: left antecubital; rr5 03:51 Follow up: Response: No adverse reaction; Pain is decreased; RASS: Alert and Calm (0) rr5 03:22 Drug: NS 0.9% 500 ml Route: IV; Rate: bolus; Site: left antecubital; rr5 03:50 Follow up: Response: No adverse reaction; IV Status: Completed infusion; IV Intake: rr5 500ml Disposition: 05/23/20 03:13 Hospitalization ordered by Prema Lin for Inpatient Admission. Preliminary diagnosis are Abdominal tenderness, Unspecified cirrhosis of liver - ANAYA, Acute pancreatitis. - Bed requested for Telemetry/MedSurg (observation). - Status is Inpatient Admission. jl7 - Condition is Fair. - Problem is new. - Symptoms have improved. Signatures: Dispatcher [employer] [facility] Jazmín Westbrook, RN RN Homero Henning MD MD cha Munoz, Edgar, RN RN Aline Jimenes, RN RN aa5 Kadeem Merida, RN RN jl7 Shyam Kirk, RN RN rr5 Corrections: (The following items were deleted from the chart) 03:40 03:13 Hospitalization Ordered by Prema Lin MD for Inpatient Admission. Preliminary diagnosis is Abdominal tenderness; Unspecified cirrhosis of liver - ANAYA; Acute pancreatitis. Bed requested for Telemetry/MedSurg (Inpatient). Status is Inpatient Admission. Condition is Fair. Problem is new. Symptoms have improved. [facility] 04:09 03:44 CORONAVIRUS ordered. [facility] 12:33 03:40 05/23/2020 03:13 Hospitalization Ordered by Prema Lin MD for Inpatient aa5 Admission. Preliminary diagnosis is Abdominal tenderness; Unspecified cirrhosis of liver - ANAYA; Acute pancreatitis. Bed requested for [facility] ER HOLD. Status is Inpatient Admission. Condition is Fair. Problem is new. Symptoms have improved. dw 12:58 12:33 05/23/2020 03:13 Hospitalization Ordered by Prema Lin MD for Inpatient jl7 Admission. Preliminary diagnosis is Abdominal tenderness; Unspecified cirrhosis of liver - ANAYA; Acute pancreatitis. Bed requested for Telemetry/MedSurg (observation). Status is Inpatient Admission. Condition is Fair. Problem is new. Symptoms have improved. aa5
[2020-05-23] MEDS: D5 0.9 NS 1,000 ML IV SCH ×2 (15:03→21:06)
[2020-05-23] MEDS: LIPASE/PROTEASE/AMYLASE CAP PO SCH (18:38)
[2020-05-23] MEDS: LACTULOSE 20 GM/30 ML UCUP PO SCH (20:59)
[2020-05-24] MEDS: HYDROMORPHONE HCL 0.5 MG/0.5 ML INJ IV PRN ×3 (03:33→15:36)
[2020-05-24 06:04] LABS: Absolute Lymphocytes (CBC) 0.4 K/uL (0.7-4.9); Basophils % 0.7 % (0-1.3); Hematocrit 26.4 % (36.0-45.0); Lymphocytes % 26.8 % (15.3-44.8); MPV 7.7 fL (7.6-11.3); RBC Red Blood Cell Count 3.17 M/uL (3.86-4.86)
[2020-05-24] MEDS: ONDANSETRON 4 MG/2 ML VIAL IV PRN ×3 (06:12→15:36)
[2020-05-24 06:19] LABS: ALT/SGPT 46 U/L (12-78); AST/SGOT 36 U/L (15-37); Albumin 2.6 g/dL (3.4-5.0); Alkaline Phosphatase 112 U/L (45-117); BUN Blood Urea Nitrogen 8 mg/dL (7-18); Bicarbonate 27 mmol/L (21-32); Bilirubin Total 1.9 mg/dL (0.2-1.0); Glucose Level 113 mg/dL (74-106); HDL Cholesterol 52 mg/dL (40-60); LDL Cholesterol, Calculated 84 (<130); Lipase 257 U/L (73-393); Potassium 3.6 mmol/L (3.5-5.1); Protein, Total 5.8 g/dL (6.4-8.2); Sodium Level 141 mmol/L (136-145)
[2020-05-24] MEDS: INSULIN -REGULAR HUMAN 50 UNIT/0.5 ML ML SQ SCH ×3 (07:30→16:30)
[2020-05-24 08:43] VITALS: O2SAT 94
[2020-05-24 08:55] LABS: Blood Morphology Comment NOT SEEN (NOT SEEN); Platelet Estimate DECR; Platelets, Giant FEW
[2020-05-24] MEDS ORDERED: SPIRONOLACTONE 25 MG TABLET PO SCH (09:00)
[2020-05-24] MEDS ORDERED: FUROSEMIDE 20 MG TABLET PO SCH (09:00)
[2020-05-24] MEDS: LACTULOSE 20 GM/30 ML UCUP PO SCH (11:05)
[2020-05-24] MEDS: LIPASE/PROTEASE/AMYLASE CAP PO SCH ×3 (11:06→19:01)
[2020-05-24] MEDS: FAMOTIDINE 20 MG/2 ML VIAL IV SCH (11:08)
--- NOTE | 2020-05-24 11:08 | P.PN ---
Subjective Date of Service: 05/24/20 Subjective: No new changes, No C/O voiced, Improving Review of Systems 10-point ROS is otherwise unremarkable Physical Examination - Vital Signs Temperature: 97.5 F Blood Pressure: 141/65 Pulse: 82 Respirations: 20 Pulse Ox (%): 96 - Physical Exam General: Alert, In no apparent distress, Oriented x3 HEENT: Atraumatic, PERRLA, EOMI Neck: Supple, JVD not distended Respiratory: Clear to auscultation bilaterally, Normal air movement Cardiovascular: Regular rate/rhythm, Normal S1 S2 Gastrointestinal: Normal bowel sounds, No tenderness Musculoskeletal: No tenderness Integumentary: No rashes Neurological: Normal speech, Normal tone, Normal affect Lymphatics: No axilla or inguinal lymphadenopathy - Studies Medications List Reviewed: Yes Assessment & Plan - Problems (Diagnosis) (1) Acute on chronic pancreatitis Onset Date: 05/30/18 Current Visit: No Status: Acute (2) Nausea Onset Date: 03/01/16 Current Visit: No Status: Acute (3) UTI (urinary tract infection) Onset Date: 03/01/16 Current Visit: No Status: Acute (4) Cirrhosis of liver Onset Date: 12/23/14 Current Visit: No Status: Chronic (5) History of arteriovenous malformation (AVM) Current Visit: No Status: Chronic (6) History of esophageal varices Current Visit: No Status: Chronic - Plan Plan: 1. Continue with IV fluid 2. Continue with pain control 3. Monitor labs closely 4. Repeat lipase 5. GI/DVT prophylaxis Discharge Plan: Home Plan to discharge in: Greater than 2 days - Advance Directives Does patient have a Living Will: No Does patient have a Durable POA for Healthcare: No - Code Status/Comfort Care Code Status Assessed: Yes Code Status: Full Code Physician Review: Patient Assessed, Agree with Above Assessment and Plan Critical Care: No Time Spent Managing PTS Care (In Minutes): 35
[2020-05-24] MEDS: D5 0.9 NS 1,000 ML IV SCH (11:16)
--- NOTE | 2020-05-25 07:58 | EKG ---
Test Date: 2020-05-23 Test Time: 02:13:57 Film Sorter: RR MEASUREMENT RESULTS: Intervals: Rate: 86 RI: 136 QRSD: 106 QT: 428 QTc: 512 [place]: P: 45 RI: 136 QRS: 79 T: 42 INTERPRETIVE STATEMENTS: Normal sinus rhythm Prolonged QT Abnormal ECG Compared to ECG 05/06/2020 01:22:03 No significant changes Electronically Signed On 05-25-20 07:53:42 [employer]ENTAL SALES AGENT by Miguel Crenshaw
[2020-06-18 21:08] VITALS: BP 141/65; TEMP 97.5
--- NOTE | 2020-06-18 21:14 | P.DS ---
Discharge Date: 05/24/20 Disposition: ROUTINE DISCHARGE Discharge Condition: GOOD Reason for Admission: abdominal pain - Problems (1) Acute on chronic pancreatitis Onset Date: 05/30/18 Status: Acute (2) Nausea Onset Date: 03/01/16 Status: Acute (3) UTI (urinary tract infection) Onset Date: 03/01/16 Status: Acute (4) Cirrhosis of liver Onset Date: 12/23/14 Status: Chronic (5) History of arteriovenous malformation (AVM) Status: Chronic (6) History of esophageal varices Status: Chronic Brief History of Present Illness: Patient is a 60 yr old female with morbid obesity , liver cirrhosis due to ANAYA , recurrent pancreatitis , follow with GI at [place] , on home dose of creon but reportedly ran out few days ago admitted for recurrent abdominal pain - campy in nature, non radiating , associated with nausea and vomiting .symptoms similar to prior episodes of pancreatitis flare. She presented to ER and CT abdomen with findings of recurrent pancreatitis Hospital Course: Patient has done well during hospital patient is clinically doing well with no new complaints. At this time, patient is stable for discharge home. Vital Signs/Physical Exam: Temp Pulse Resp BP Pulse Ox 97.5 F 82 20 141/65 H 96 06/18/20 21:07 06/18/20 21:07 06/18/20 21:07 06/18/20 21:07 06/18/20 21:07 General: Alert, In no apparent distress, Oriented x3 Laboratory Data at Discharge: WBC 1.60 K/uL (4.3-10.9) L* D 05/24/20 05:45 Hgb 8.5 g/dL (12.0-15.0) L 05/24/20 05:45 Hct 26.4 % (36.0-45.0) L 05/24/20 05:45 Plt Count 38 K/uL (152-406) L* D 05/24/20 05:45 PT 13.4 SECONDS (9.5-12.5) H 05/23/20 05:11 INR 1.16 05/23/20 05:11 APTT 26.6 SECONDS (24.3-36.9) 05/23/20 05:11 Sodium 141 mmol/L (136-145) 05/24/20 05:45 Potassium 3.6 mmol/L (3.5-5.1) 05/24/20 05:45 BUN 8 mg/dL (7-18) 05/24/20 05:45 Creatinine 0.49 mg/dL (0.55-1.3) L 05/24/20 05:45 Glucose 113 mg/dL (74-106) H 05/24/20 05:45 Magnesium 1.7 mg/dL (1.8-2.4) L 05/24/20 05:45 Total Bilirubin 1.9 mg/dL (0.2-1.0) H 05/24/20 05:45 AST 36 U/L (15-37) 05/24/20 05:45 ALT 46 U/L (12-78) 05/24/20 05:45 Alkaline Phosphatase 112 U/L (45-117) 05/24/20 05:45 Triglycerides 54 mg/dL (<150) 05/24/20 05:45 Cholesterol 147 mg/dL (<200) 05/24/20 05:45 HDL Cholesterol 52 mg/dL (40-60) 05/24/20 05:45 Cholesterol/HDL Ratio 2.83 05/24/20 05:45 Lipase 257 U/L (73-393) 05/24/20 05:45 Home Medications: Lactulose 15 ml PO BID 10/22/19 Furosemide 20 mg PO DAILY 05/23/20 Spironolactone 25 mg PO DAILY 05/23/20 Hydrocodone 10/APAP 325 [Holliday 10/325] 1 tab PO Q6H PRN #40 tab 05/24/20 LORazepam [Ativan*] 0.5 mg PO DAILY PRN #30 tab 05/24/20 Lipase/Protease/Amylase [Remy Taylor 12,000 Units Capsule] 1 each PO TID #90 capsule. 05/24/20 Lipase/Protease/Amylase [Remy Taylor 12,000 Units Capsule] 12,000 units PO TID #90 05/24/20 New Medications: LORazepam [Ativan*] 0.5 mg PO DAILY PRN #30 tab PRN Reason: Insomnia Lipase/Protease/Amylase [Remy Taylor 12,000 Units Capsule] 12,000 units PO TID #90 Lipase/Protease/Amylase [Remy Taylor 12,000 Units Capsule] 1 each PO TID #90 capsule. Hydrocodone 10/APAP 325 [Holliday 10/325] 1 tab PO Q6H PRN #40 tab PRN Reason: Pain Physician Discharge Instructions: OK TO DC IV AND DC HOME FOLLOW-UP WITH PRIMARY CARE PROVIDER IN 1-2 WEEKS FOLLOW-UP WITH GASTROENTEROLOGY in 4 weeks FOLLOW-UP WITH Test Director in 2-4 weeks RETURN TO THE ER IF symptoms worsen CALL or TEXT DR. HELMS AT [phone] IF ANY QUESTIONS REGARDING HOSPITAL STAY. PLEASE CALL THE FLOOR AT [phone] IF ANY MEDICATION OR NURSING QUESTIONS. Diet: Low-fat Activity: Fall precautions Followup: Madhu Albarado MD [Primary Care Provider] - Time spent managing pt's care (in minutes): 35
== END 2020-05-24 20:15 | disposition home or self-care (01) ==
LOC: ER 00:58 → ERHOLD 04:15 → 2ND 12:36
PROVIDERS: ADMIT Internal Medicine; ATTEND Hospitalist
DX: K85.90 Acute pancreatitis without necrosis or infection, unspecified (principal); K86.1 Other chronic pancreatitis; N39.0 Urinary tract infection, site not specified; K74.60 Unspecified cirrhosis of liver; R11.0 Nausea; Z20.822 Contact with and (suspected) exposure to COVID-19; Z85.3 Personal history of malignant neoplasm of breast; K76.0 Fatty (change of) liver, not elsewhere classified; E66.9 Obesity, unspecified; Z68.41 Body mass index [BMI] 40.0-44.9, adult; R94.31 Abnormal electrocardiogram [ECG] [EKG]
CPT/HCPCS: 96361; 93005; 85025 ×2; 80048; 36415 ×2; 83735 ×3; 85610 ×2; 80061 ×2; 82565; 82947 ×7; 80076; 85730; 81003; 84484; 83690 ×3; 80053; 83880; 74177; 71045; 94760; 96375; 96374; 99285; U0003; Q9967; J3010; J1170 ×7; J7042 ×3; J7030; J2405 ×7

== ENCOUNTER 2020-07-16 03:38 | Emergency (ER) | payer OTHER ==
--- OUTSIDE RECORDS SUMMARY | 2020-07-16 03:42 | XMS REPORT | Continuity of Care Document ---
:1960 Author Organization [facility] t Address [address] [place] [address] Care Team Providers Name Role Phone Ruth Usman Primary Care Physician Unavailable MANUELITO Attending Clinician Unavailable JAIME Attending Clinician Unavailable Lab, Fam Pob I Attending Clinician Unavailable Nasrin REYES, A Attending Clinician Unavailable Alisha HENSLEY Attending Clinician SHAYY DAVEY Attending Clinician Unavailable JUDIT ESCALONA Attending Clinician Unavailable SHERIDAN THOMAS Admitting Clinician Unavailable JAIME Admitting Clinician Unavailable MANUELITO Admitting Clinician Unavailable Alisha HENSLEY Admitting Clinician SHAYY DAVEY Admitting Clinician Unavailable JUDIT ESCALONA Admitting Clinician Unavailable Problems Condition Condition Condition Status Onset Resolution Last Treating Co mments Source Name Details Category Date Date Treatment Clinician Date Other Other Disease Active [facility] cirrhosis cirrhosis 6-22 [facility] of liver [facility] Increased Increased Disease Active [facility] ammonia [facility] level [facility] Epigastric Epigastric Disease Active [facility] abdominal abdominal 6-22 [facility] - pain pain [facility] Primary Primary Diagnosis [facility] right knee right knee l [facility] Primary Primary Diagnosis Active [facility] osteoarthr osteoarthr [facility] left knee left knee l [facility] ent Clinics Allergies, Adverse Reactions, [...] Info Not [facility] Reaction Available [facility] Social History Social Habit Start Date Stop Date Quantity Comments Source Sex Assigned At [facility] Tobacco use and 2018-10-03 2018-10-03 Never used [facility] - exposure 00:00:00 00:00:00 [facility] Alcohol intake 2018-10-03 2018-10-03 Current [facility] St Les[facility] es - 00:00:00 00:00:00 non-drinker of [facility] nter alcohol (finding) Smoking Status Start Date Stop Date Source Never smoker [facility] Medications Ordered Filled Start Stop Current Ordering Indication Dosage Frequency Signature Comments Components Source Medication Medication Date Date Medication? Clinician (SIG) Name Name Meloxicam Meloxicam 2020- No Gm [address] [facility] [address] 6-09 07-09 [facility]00 [facility] 00 :00 [facility] ent [facility] lactulose Yes 10g Q.5D Take 10 g [...] St e Sodium e Sodium Singh defined Lu s - [facility] Acetaminoph Acetaminoph Yes Gm not [facility] [...] s - Test 00:00:00 (procedure) [code = [facility] 49683905] Future Scheduled 2019-12-[address] [facility] - Test 00:00:00 (#1) [code = [facility] INFLUENZA VACCINE (#1)] Future Scheduled [address] [facility] - Test 00:00:00 malignant neoplasm Medical C enter of cervix (procedure) [code = 213563915] Future Scheduled [address] [facility] - Test 00:00:00 malignant neoplasm Medical C enter of breast (procedure) [code = 608010206] Future Scheduled [address] [facility] - Test 00:00:00 malignant neoplasm Medical C enter of colon (procedure) [code = 389021206] Encounters Start End Encounter Admission Attending Care Care Encounter Source Date/Time Date/Time Type Type Clinicians Facility Department ID 2020-06-09 2020-06-22 Inpatient VIKTOR BILLINGS [facility] [id number] [place] 00:00:00 00:00:[address] 2020-03-19 2020-03-23 Inpatient JAIME, [facility] [id number] [place] 00:00:00 00:00:00 CH[facility]I [address] 2020-03-14 2020-03-18 Inpatient JAIME [facility] [id number] [place] 00:00:00 00:00:00 CHERI [address] 2020-02-13 2020-02-13 Laboratory Lab, [facility] [id number] 10:22:10 10:42:10 Only Fam [facility] [id number] [place] [id number] [phone] nal [address] 2019-09-28 2019-09-28 [facility] [id number] 09:00:00 09:00:00 [facility] Clinics 2019-09-18 2019-09-18 [facility] [id number] 09:30:00 09:30:00 [facility] ent Clinics 2019-08-14 2019-08-14 Transition Nasrin Jocelyne [id number] 00:00:00 00:00:00 of Care Jovanny Sotelo [id number] [place] [id number] 2019-08-10 2019-08-11 [facility] [id number] 02:55:00 16:09:00 Encounter Wes Amin [id number] [place] [id number] [place] [id number] [id number] Results Test Description Test Time Test Comments Results Result [facility] e Comments RAD, CHEST, 1 2018-10-03 Reason for FINAL REPORT PATIENT VIEW, NON DEPT 07:50:00 exam:->Lydia ID: [id number] CLINICAL d this be HISTORY: SOB performed at TECHNIQUE: 1 view of the the chest. COMPARISON: bedside?->Yes None IMPRESSION: There is pulmonary vascular congestion with prominent lung markings bilaterally. Subpulmonic pleural effusions cannot be excluded. The cardiomediastinal silhouette is magnified by technique. Signed: Franky Hoyt MDReport Verified Date/Time: 10/03/2018 07:50:47 Reading Location: [facility] Radiology Reading Room ESIUM 2018-10-03 07:37:00 Test Item Value Reference Range Interpretation Comme nts MAGNESIUM (BEAKER) (test code = 627) 1.6 mg/dL 1.6-2.6 BASIC METABOLIC [id number] 07:37:00 Test Item Value Reference Range Interpretation [...] DIALYSIS PATIEN TS. Specimen slightly ictericHEPATIC FUNCTION [id number] 07:37:00 Test Item Value Reference Range Interpretation [...] 35 U/L 6-55 347) Specimen slightly ictericPROTHROMBIN [id number] 06:25:00 Test Item Value Reference Range Interpretation [...] mechanical heart valves.CBC W/PLT COUNT & AUTO [id number] 06:16:00 Test Item Value Reference Range Interpretation [...] = 3438) Received comment: User comments: Slide comments:[id number] 05:58:00 Test Item Value Reference Range Interpretation Comments MAGNESIUM (BEAKER) (test code = 1.6 mg/dL 1.6-2.6 627) BASIC METABOLIC [id number] 05:58:00 Test Item Value Reference Range Interpretation [...] DIALYSIS PATIEN TS. Specimen slightly ictericHEPATIC FUNCTION [id number] 05:58:00 Test Item Value Reference Range Interpretation [...] 39 U/L 6-55 347) Specimen slightly ictericPROTHROMBIN [id number] 05:26:00 Test Item Value Reference Range Interpretation [...] mechanical heart valves.CBC W/PLT COUNT & AUTO [id number] 05:20:00 Test Item Value Reference Range Interpretation [...] WBC 0-0 (test code = 413) VITAMIN [id number] 06:57:00 Test Item Value Reference Range Interpretation Comments VITAMIN B12 (BEAKER) (test code = 178 pg/mL 213-816 L 774) [id number] 06:57:00 Test Item Value Reference Range Interpretation Comments FERRITIN (BEAKER) (test code = 361) 21 ng/mL 5-275 FOLATE, [id number] 06:57:00 Test Item Value Reference Range Interpretation [...] 28 % 20-55 (test code = 2590) [id number] 05:59:00 Test Item Value Reference Range Interpretation Comments MAGNESIUM (BEAKER) (test code = 1.7 mg/dL 1.6-2.6 627) BASIC METABOLIC [id number] 05:59:00 Test Item Value Reference Range Interpretation [...] FOR DIALYSIS PATIEN TS. Specimen slightly ictericLIPID [id number] 05:59:00 Test Item Value Reference Range Interpretation [...] Very High >=190 Specimen slightly ictericHEPATIC FUNCTION [id number] 05:59:00 Test Item Value Reference Range Interpretation [...] = 41 U/L 6-55 347) Specimen slightly [id number] 05:59:00 Test Item Value Reference Range Interpretation Comments LIPASE (BEAKER) (test code = 749) 35 U/L 8-78 Specimen slightly ictericPROTHROMBIN [id number] 05:58:00 Test Item Value Reference Range Interpretation [...] mechanical heart valves.CBC W/PLT COUNT & AUTO [id number] 05:37:00 Test Item Value Reference Range Interpretation [...] PERCENT (BEAKER) (test code = 2801) POCT-HEMOGLOBIN [id number] 06:12:00 Test Item Value Reference Range Interpretation Comments POC-HEMOGLOBIN METER 8.6 g/dL 12.0-15.0 L TESTED AT [facility] [address] ([facility]) (test code = JOANNA BARAHONA [id number])
[2020-07-16] MEDS ORDERED: HYDROCODONE/CHLORPHEN 5 ML/OSYR ONE (05:55)
[2020-07-16] MEDS ORDERED: AMOX/K CLAV 875 MG TAB ONE (05:55)
[2020-07-16] MEDS ORDERED: dexAMETHasone 4 MG TAB ONE (05:55)
[2020-07-16 06:47] LABS: SARS-COV-2 RT PCR NEGATIVE (NEGATIVE)
--- NOTE | 2020-07-16 07:08 | EDPHYS ---
Physician Documentation [facility] Name: Zenaida Goss Age: 60 yrs Sex: Female : 1960 Arrival Date: 07/16/2020 Time: 03:45 Bed 19 Private MD: ED Physician Homero Terrell HPI: 07/16 05:38 This 60 yrs old Female presents to ER via Ambulatory with complaints of Sore vicente Throat, Ear Pain. 05:38 The patient presents with sore throat. The patient describes throat pain as constant, vicente dry, raw. Onset: The symptoms/episode began/occurred last night. Severity of symptoms: At their worst the symptoms were mild, in the emergency department the symptoms are unchanged. Modifying factors: The symptoms are alleviated by nothing, the symptoms are aggravated by swallowing. Associated signs and symptoms: The patient has no apparent associated signs or symptoms. The patient has experienced similar episodes in the past, a few times. Historical: - Allergies: 04:14 Morphine (Anaphylaxis); bb 04:14 Dilaudid; bb - Home Meds: 04:14 Creon oral oral [Active]; Lactulose Oral [Active]; bb - PMHx: 04:14 Anemia; breast cancer; Cirrhosis; fatty liver; Pancreatitis; varices; bb - PSHx: 04:14 Appendectomy; Cholecystectomy; Hysterectomy; Lumpectomy; bb - Immunization history:: Adult Immunizations up to date. - Social history:: Smoking status: Patient denies any tobacco usage or history of. Patient/guardian denies using alcohol, street drugs, IV drugs. - Family history:: not pertinent. ROS: 05:38 Constitutional: Negative for fever, chills, and weight loss, Eyes: Negative for injury, vicente pain, redness, and discharge, Neck: Negative for injury, pain, and swelling, Cardiovascular: Negative for chest pain, palpitations, and edema, Respiratory: Negative for shortness of breath, cough, wheezing, and pleuritic chest pain, Abdomen/GI: Negative for abdominal pain, nausea, vomiting, diarrhea, and constipation, Back: Negative for injury and pain, : Negative for injury, bleeding, discharge, and swelling, MS/Extremity: Negative for injury and deformity, Skin: Negative for injury, rash, and discoloration, Neuro: Negative for headache, weakness, numbness, tingling, and seizure, Psych: Negative for depression, anxiety, suicide ideation, homicidal ideation, and hallucinations, Allergy/Immunology: Negative for hives, rash, and allergies, Endocrine: Negative for neck swelling, polydipsia, polyuria, polyphagia, and marked weight changes. 05:38 ENT: Positive for ear pain, rhinorrhea, sinus congestion, sore throat. Exam: 05:38 Constitutional: This is a well developed, well nourished patient who is awake, alert, vicente and in no acute distress. Head/Face: Normocephalic, atraumatic. Eyes: Pupils equal round and reactive to light, extra-ocular motions intact. Lids and lashes normal. Conjunctiva and sclera are non-icteric and not injected. Cornea within normal limits. Periorbital areas with no swelling, redness, or edema. Neck: Trachea midline, no thyromegaly or masses palpated, and no cervical lymphadenopathy. Supple, full range of motion without nuchal rigidity, or vertebral point tenderness. No Meningismus. Chest/axilla: Normal chest wall appearance and motion. Nontender with no deformity. No lesions are appreciated. Cardiovascular: Regular rate and rhythm with a normal S1 and S2. No gallops, murmurs, or rubs. Normal PMI, no JVD. No pulse deficits. Respiratory: Lungs have equal breath sounds bilaterally, clear to auscultation and percussion. No rales, rhonchi or wheezes noted. No increased work of breathing, no retractions or nasal flaring. Abdomen/GI: Soft, non-tender, with normal bowel sounds. No distension or tympany. No guarding or rebound. No evidence of tenderness throughout. Back: No spinal tenderness. No costovertebral tenderness. Full range of motion. Female : Normal external genitalia. Skin: Warm, dry with normal turgor. Normal color with no rashes, no lesions, and no evidence of cellulitis. MS/ Extremity: Pulses equal, no cyanosis. Neurovascular intact. Full, normal range of motion. Neuro: Awake and alert, GCS 15, oriented to person, place, time, and situation. Cranial nerves II-XII grossly intact. Motor strength 5/5 in all extremities. Sensory grossly intact. Cerebellar exam normal. Normal gait. Psych: Awake, alert, with orientation to person, place and time. Behavior, mood, and affect are within normal limits. 05:38 ENT: TM's: erythema, that is mild, bilaterally, Nose: is normal, Posterior pharynx: Uvula: midline, erythema, swelling, that is mild, erythema, that is mild, exudate, is not appreciated, peritonsillar mass, is not appreciated, pooling of secretions, is not appreciated. 05:38 Neck: ROM/movement: Meningeal signs: are not present, nuchal rigidity, is not appreciated, Lymph nodes: lymphadenopathy is appreciated, anterior cervical nodes. Vital Signs: 04:12 BP 129 / 58; Pulse 90; Resp 18 S; Temp 98.1(O); Pulse Ox 97% on R/A; Weight 113.4 kg bb (R); Height 5 ft. 4 in. (162.56 cm) (R); Pain 9/10; 06:46 BP 150 / 61; Pulse 87; Resp 16; Pulse Ox 97% ; sf 04:12 Body Mass Index 42.91 (113.40 kg, 162.56 cm) bb MDM: 04:57 Patient medically screened. [facility] 05:41 Differential diagnosis: group A strep tonsillitis, influenza, laryngitis, pharyngitis, vicente tonsillitis, upper respiratory infection, uvulitis, viral syndrome. Data reviewed: vital signs, nurses notes, lab test result(s). Data interpreted: twisting frame changer: rate is 90 beats/min, rhythm is regular, Pulse oximetry: on room air is 97 %. Counseling: I had a detailed discussion with the patient and/or guardian regarding: the historical points, exam findings, and any diagnostic results supporting the discharge/admit diagnosis, lab results, the need for outpatient follow up, for definitive care, a family practitioner. 07/16 05:37 Order name: Strep; Complete Time: 07:07 vicente 07/16 06:34 Order name: Chest Single View XRAY [facility] 07/16 06:47 Order name: COVID-19/FLU A+B; Complete Time: 07:07 EDMS 07/16 06:57 Order name: Throat Culture EDMS Administered Medications: 05:38 Drug: Augmentin (Amoxicillin-Clavulanate) 875 mg Route: PO; sf 06:48 Follow up: Response: No adverse reaction 05:38 Drug: Tussionex Pennkinetic ER (chlorpheniramine-hydrocodone) 5 ml Route: PO; sf 06:47 Follow up: Response: No adverse reaction; Pain is decreased; Other; cough decreased sf 05:38 Drug: Decadron (dexamethasone) 4 mg Route: PO; sf 06:47 Follow up: Response: No adverse reaction; Pain is decreased sf Disposition: 07/16/20 07:07 Discharged to Home. Impression: Acute pharyngitis, Fatty (change of) liver, not elsewhere classified - ANAYA, Acute upper respiratory infection, unspecified. - Condition is Stable. - Discharge Instructions: Pharyngitis, Pharyngitis, Wbyn-qq-Qmmb, Sore Throat, Miwe-nf-Rggh, Nonalcoholic Fatty Liver Disease Diet. - Prescriptions for dexamethasone 2 mg Oral tablet - take 1 tablet by ORAL route 2 times per day; 6 tablet. Augmentin 875- 125 mg Oral Tablet - take 1 tablet by ORAL route every 12 hours for 10 days; 20 tablet. Nena- D 12 Hour 60-120 mg Oral Tablet Sustained Release 12 hr - take 1 tablet by ORAL route every 12 hours As needed; 14 tablet. - Medication Reconciliation Form, Thank You Letter, Antibiotic Education, Prescription Opioid Use form. - Follow up: Private Physician; When: 2 - 3 days; Reason: Recheck today's complaints, Continuance of care, Re-evaluation by your physician. - Problem is new. - Symptoms have improved. Signatures: Dispatcher [employer] [facility] Homero Terrell MD MD cha Ballard, Brenda, RN RN Chai Paez RN RN sf Cheyanne Jordan RN RN ld1 Corrections: (The following items were deleted from the chart) 05:56 05:37 Influenza Screen (A \T\ B)+BA.LAB.BRZ ordered. [facility] 07:32 07:07 07/16/2020 07:07 Discharged to Home. Impression: Acute pharyngitis; Fatty (change ld1 of) liver, not elsewhere classified - ANAYA; Acute upper respiratory infection, unspecified. Condition is Stable. Discharge Instructions: Pharyngitis, Pharyngitis, Qwao-oy-Kxyx, Sore Throat, Kkmk-ls-Xlha, Nonalcoholic Fatty Liver Disease Diet. Prescriptions for dexamethasone 2 mg Oral tablet - take 1 tablet by ORAL route 2 times per day; 6 tablet, Augmentin 875-125 mg Oral Tablet - take 1 tablet by ORAL route every 12 hours for 10 days; 20 tablet, Nena-D 12 Hour 60-120 mg Oral Tablet Sustained Release 12 hr - take 1 tablet by ORAL route every 12 hours As needed; 14 tablet. and Forms are Medication Reconciliation Form, Thank You Letter, Antibiotic Education, Prescription Opioid Use. Follow up: Private Physician; When: 2 - 3 days; Reason: Recheck today's complaints, Continuance of care, Re-evaluation by your physician. Problem is new. Symptoms have improved. vicente
--- NOTE | 2020-07-16 07:08 | ER ---
Nurse's Notes [facility] Name: Zenaida Goss Age: 60 yrs Sex: Female : 1960 Arrival Date: 07/16/2020 Time: 03:45 Bed 19 Private MD: Diagnosis: Acute pharyngitis;Fatty (change of) liver, not elsewhere classified-ANAYA;Acute upper respiratory infection, unspecified Presentation: 07/16 04:12 Chief complaint: Patient states: she has had a sore throat and painful ears since bb yesterday could not sleep well last night tried taking Tylenol but it didn't help. Coronavirus screen: At this time, the client does not indicate any symptoms associated with coronavirus-19. Ebola Screen: No symptoms or risks identified at this time. Initial Sepsis Screen: Does the patient meet any 2 criteria? No. Patient's initial sepsis screen is negative. Does the patient have a suspected source of infection? No. Patient's initial sepsis screen is negative. Risk Assessment: Do you want to hurt yourself or someone else? Patient reports no desire to harm self or others. Onset of symptoms was July 15, 2020. 04:12 Method Of Arrival: Ambulatory bb 04:12 Acuity: TANK 3 bb Triage Assessment: 04:14 General: Appears in no apparent distress. Behavior is calm, cooperative. Pain: bb Complains of pain in throat and bilateral ears Pain currently is 9 out of 10 on a pain scale. EENT: Reports pain in right ear and left ear and throat. Neuro: Level of Consciousness is awake, alert, obeys commands, Oriented to person, place, time, situation. Cardiovascular: No deficits noted. Respiratory: Respiratory effort is even, unlabored, Respiratory pattern is regular. GI: No signs and/or symptoms were reported involving the gastrointestinal system. Derm: Skin is pink, warm \T\ dry. Musculoskeletal: Circulation, motion, and sensation intact. Historical: - Allergies: 04:14 Morphine (Anaphylaxis); bb 04:14 Dilaudid; bb - Home Meds: 04:14 Creon oral oral [Active]; Lactulose Oral [Active]; bb - PMHx: 04:14 Anemia; breast cancer; Cirrhosis; fatty liver; Pancreatitis; varices; bb - PSHx: 04:14 Appendectomy; Cholecystectomy; Hysterectomy; Lumpectomy; bb - Immunization history:: Adult Immunizations up to date. - Social history:: Smoking status: Patient denies any tobacco usage or history of. Patient/guardian denies using alcohol, street drugs, IV drugs. - Family history:: not pertinent. Screenin:58 Abuse screen: Denies threats or abuse. Denies injuries from another. Nutritional sf screening: No deficits noted. Tuberculosis screening: No symptoms or risk factors identified. Never had TB. Possible symptoms: None Risk factors: None. Fall Risk None identified. No fall in past 12 months (0 pts). No secondary diagnosis (0 pts). No IV (0 pts). Ambulatory Aid- None/Bed Rest/Nurse Assist (0 pts). Gait- Normal/Bed Rest/Wheelchair (0 pts) Mental Status- Oriented to own ability (0 pts). Total Adames Fall Scale indicates No Risk (0-24 pts). Assessment: 04:58 General: Appears in no apparent distress. Behavior is calm, cooperative. Pain: sf Complains of pain in right ear and left ear and throat. Neuro: No deficits noted. Level of Consciousness is awake, alert, obeys commands, Oriented to person, place, time, situation. Cardiovascular: No deficits noted. Patient's skin is warm and dry. Respiratory: Reports cough that is Airway is patent Respiratory effort is even, unlabored, Respiratory pattern is regular, symmetrical, Denies shortness of breath labored breathing. GI: No deficits noted. No signs and/or symptoms were reported involving the gastrointestinal system. : No deficits noted. No signs and/or symptoms were reported regarding the genitourinary system. EENT: Tympanic membrane reddened on right ear bulging on right ear not visualized left ear Ear canal clear on right ear cerumen blocking canal on left ear. Pinna with no deformity noted on right ear and left ear Throat has patchy exudate bilaterally with gag reflex present, Reports difficulty swallowing due to pain. Derm: No deficits noted. No signs and/or symptoms reported regarding the dermatologic system. Musculoskeletal: No deficits noted. No signs and/or symptoms reported regarding the musculoskeletal system. 06:46 Reassessment: Patient appears in no apparent distress at this time. Patient and/or sf family updated on plan of care and expected duration. Pain level reassessed. Patient is alert, oriented x 3, equal unlabored respirations, skin warm/dry/pink. Patient states feeling better. Patient states symptoms have improved. Vital Signs: 04:12 BP 129 / 58; Pulse 90; Resp 18 S; Temp 98.1(O); Pulse Ox 97% on R/A; Weight 113.4 kg bb (R); Height 5 ft. 4 in. (162.56 cm) (R); Pain 9/10; 06:46 BP 150 / 61; Pulse 87; Resp 16; Pulse Ox 97% ; sf 04:12 Body Mass Index 42.91 (113.40 kg, 162.56 cm) ED Course: 03:45 Patient arrived in ED. am4 04:13 Triage completed. bb 04:14 Arm band placed on Patient placed in waiting room, Patient notified of wait time. bb 04:57 Homero Terrell MD is Attending Physician. vicente 04:58 Chai Boateng RN is Primary Nurse. sf 04:58 Patient has correct armband on for positive identification. Bed in low position. Call sf light in reach. Side rails up X 1. Door closed. Noise minimized. Visitors limited. Lights dimmed. Verbal reassurance given. 05:40 COVID swab sent to lab. Flu and/or RSV swab sent to lab. Strep swab sent to lab. sf 05:47 Strep Sent. sf 06:39 Chest Single View XRAY Sent. sf 06:40 X-ray(s) taken. sf 07:08 Report given to ERIC Quan and ERIC Edward. sf 07:13 Chest Single View XRAY In Process Unspecified. EDMS Administered Medications: 05:38 Drug: Augmentin (Amoxicillin-Clavulanate) 875 mg Route: PO; sf 06:48 Follow up: Response: No adverse reaction sf 05:38 Drug: Tussionex Pennkinetic ER (chlorpheniramine-hydrocodone) 5 ml Route: PO; sf 06:47 Follow up: Response: No adverse reaction; Pain is decreased; Other; cough decreased sf 05:38 Drug: Decadron (dexamethasone) 4 mg Route: PO; sf 06:47 Follow up: Response: No adverse reaction; Pain is decreased sf Intake: Outcome: 07:07 Discharge ordered by . vicente 07:32 Patient left the ED. ld1 Signatures: Dispatcher [employer] EDMS Homero Terrell MD MD cha Ballard, Brenda, RN RN Komal Irby am4 Chai Boateng RN RN Cheyanne Jordan RN RN ld1 Corrections: (The following items were deleted from the chart) 05:25 04:58 EENT: Throat has patchy exudate bilaterally with gag reflex present, Reports sf difficulty swallowing due to pain 05:56 05:47 Influenza Screen (A \T\ B)+BA.LAB.BRZ drawn and sent. EDAL
--- NOTE | 2020-07-16 08:00 | RAD REPORT ---
EXAM DESCRIPTION: Igor Single View07/16/2020 7:14 am CLINICAL HISTORY: Cough COMPARISON: May 2020 FINDINGS: The lungs appear clear of acute infiltrate. The heart is normal size IMPRESSION: No acute abnormalities displayed
== END 2020-07-16 07:32 | disposition home or self-care (01) ==
LOC: ER 03:38
DX: J06.9 Acute upper respiratory infection, unspecified (principal); K75.81 Nonalcoholic steatohepatitis (NASH); Z20.822 Contact with and (suspected) exposure to COVID-19; Z85.3 Personal history of malignant neoplasm of breast; Z88.5 Allergy status to narcotic agent
CPT/HCPCS: 87070; 87081; 0240U; 71045; J8540; 99283

== ENCOUNTER 2020-07-22 15:04 | Observation (INO) | payer OTHER ==
--- OUTSIDE RECORDS SUMMARY | 2020-07-22 15:07 | XMS REPORT | Continuity of Care Document ---
:1960 Author Organization [facility] t Address [address] [place] [address] Care Team Providers Name Role Phone Usman Miranda Primary Care Physician Unavailable Sloan Skelton MD Attending Clinician Nate HENSLEY Attending Clinician Mayda Thomas MD Attending Clinician Nancy HENSLEY Attending Clinician Consuelo HENSLEY Attending Clinician Emily Sanches MD Attending Clinician Daniella REYES Attending Clinician Unavailable Deo Bullock MD Attending Clinician Brandyn REYES Attending Clinician Unavailable Lab, Fam Pob I Attending Clinician Unavailable Nasrin REYES, Harley Attending Clinician Unavailable Alisha HENSLEY Attending Clinician SHAYY DAVEY Attending Clinician Unavailable RUSSELL ESCALONA Attending Clinician Unavailable MAYDA THOMAS Admitting Clinician Unavailable JAIME Admitting Clinician Unavailable NANCY Admitting Clinician Unavailable Alisha HENSLEY Admitting Clinician SHAYY DAVEY Admitting Clinician Unavailable RUSSELL ESCALONA Admitting Clinician Unavailable Payers Payer Name Policy Type Policy Effective Date Expiration Date Sour ce Number [facility] [id number] 2019 [place] CHO[place] 00:00:00 [facility] [facility] EXCHANGE MARKETPLACExxxxxx [id number] esentExchange Problems Condition Condition Condition Status Onset Resolution Last Treating Co mments Source Name Details Category Date Date Treatment Clinician Date Abdominal Abdominal Disease Active B[facility]bara ston pain, pain, 06-10 [facility] acute acute 00:00: st 00 Liver Liver Disease Active [facility] cirrhosis cirrhosis 06-09 Meth dimitri 00:00: st 00 Epigastric Epigastric Disease Active [place] pain pain 06-09 [facility] 00:[facility]: st 00 Pancreatit Pancreatit Disease Active 2019-04 [place] is due to is due to 2 Meth dimitri common common 00:00: st bile duct bile duct 00 stone stone 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 204 [facility] i 00:00: st 00 Acute Acute Disease Active 2019-04 [place] pancreatit pancreatit 2-04 Me thodi is without is without 00:00: st infection infection 00 or or necrosis necrosis Other Other Disease Active [facility] 00 Center Increased Increased Disease Active [facility]22 [facility] level 00:[facility] Medical 00 [place] Epigastric Epigastric Disease Active C [facility] [...] ents Source Name Type Date Date Clinician Hydromor Propensi Active Itching [place] phone ty to 06-20 [facility] adverse 00:00: st reaction 00 s to drug Morphine Propensi Active Other (See 2019-04 Tightness [place] ty to Comments) 2-04 of throat Meth dimitri adverse 00:00: st [...] Date Stop Date Quantity Comments [facility] Drinks [facility] Alcohol Binge Tobacco use and 2020-06-24 2020-06-24 Never used Nishant Mittal ethodist exposure 00:00:00 00:00:00 Alcohol intake 2020-06-24 2020-06-24 Lifetime Nishant Queen thodist 00:00:00 00:00:00 non-drinker (finding) History SDID 2020-03-19 2020-03-19 1 [place] Meth odist Alcohol Frequency 00:00:00 00:00:00 [birth year] Nishant Mittal ethodist 00:00:00 00:00:00 Smoking Status Start Date Stop Date Source Never smoker [place] [facility] t Medications Ordered Filled Start Stop Current Ordering Indication Dosage Frequency Signature Comments Components Source Medication Medication Date Date Medication? Clinician (SIG) Name Name lactulose Yes 20g QD Take 20 g [place] ston 10 gram/15 3-14 by mouth Metho di mL (15 mL) 10:24: daily. st solution 51 spironolact Yes 25mg QD Take 25 mg [place] one 3-14 by mouth [facility] (ALDACTONE) 10:24: daily. st 25 MG 51 tablet furosemide Yes 20mg QD Take 20 mg [place] (LASIX) 20 3-14 by mouth Metho di mg tablet 10:24: daily. st 51 pancrelipas Yes 1{capsu Q.[id number] Take 1 [place] e, 3-14 le} [id number] capsule by Met racheli lipase-prot 10:24: 3D mouth 3 st ease-amylas 51 (three) e, (CREOND) times a 12,000-38,0 day with 00 -60,000 meals. unit capsule,del ayed release(DR/ EC) capsule alum-mag 2020- No 30mL Q.25D Take 30 mL [place] hydroxide-s 3-14 -24 by mouth 4 M ethodi imeth 00:00: 23:59 (four) st (MAALOX 00 :00 times a PLUS) day before 200-200-20 meals and mg/5 mL nightly suspension for 10 days. dicyclomine No 40mg Q.25D Take 2 [place] (BENTYL) 20 3- 04-11 tablets Meth dimitri mg tablet 00:00: 23:59 ([address] 00 :00 total) by mouth 4 (four) times a day for 30 days. ondansetron No 4mg Q8H Take 1 [place] ODT 06-20-11 tablet (4 [facility] (ZOFRAN-ODT 00:00: 23:59 mg total) st ) 4 MG 00 :00 by mouth disintegrat every 8 ing tablet (eight) hours as needed for nausea or vomiting for up to 30 days. pantoprazol No 40mg QD Take 1 [place] e -03 14-11 tablet (40 [facility] (Protonix) 00:00: 23:59 mg total) s t 40 MG EC 00 :00 by mouth tablet daily for 30 days. pancrelipas 2019-04- No 1{capsu Q.[id number] Take 1 [place] e, 2-13 -12 le} [id number] capsule by Hi hussein lipase-prot 00:00: 23:59 3D mouth 3 [...] [place] -acetaminop 2-08 12-15 tablet by Me hussein woods (NORCO) 00:00: 23:[address] [...] Time Observation Value Comments Source Systolic blood 2020-06-22 07:27:51 106 mm[Hg] [place] [facility] pressure Diastolic blood 2020-06-22 07:27:51 48 mm[Hg] [place] [facility] pressure Heart rate 2020-06-22 07:27:51 67 /min Nishant Rileyist Body temperature 2020-06-22 07:27:51 36.22 Sandee [place] [facility] Respiratory rate 2020-06-22 07:27:51 19 /min [place] [facility] Oxygen saturation in 2020-06-22 07:27:51 95 /min Nishant Chaidez Arterial blood by Pulse oximetry Body weight 2020-06-22 04:20:21 117.708 kg Nishant Chaidez BMI 2020-06-22 04:20:21 44.54 kg/m2 Nishant Chaidez Body height 2020-06-09 11:50:00 162.6 cm Nishant Chaidez Procedures Procedure Date / Time Performing Clinician Source Performed HC COMPLETE BLD COUNT 2020-06-22 04:30:00 Viktor Cruz [facility] W/AUTO DIFF COMPREHENSIVE METABOLIC 2020-06-22 04:30:00 Viktor Cruz [facility] PANEL PROTHROMBIN TIME WITH INR 2020-06-22 04:30:00 Viktor Cruz [facility] ESTIMATED GFR 2020-06-22 04:30:00 Viktor Cruz Meth odist SMEAR REVIEW 2020-06-22 04:30:[address] ANGIOGRAM PE CHEST 2020-06-21 11:23:44 Viktor Cruz [facility] HC COMPLETE BLD COUNT 2020-06-21 05:45:00 Viktor Cruz [facility] W/AUTO DIFF PROTHROMBIN TIME WITH INR 2020-06-21 05:45:00 Viktor Cruz [facility] B NATRIURETIC PEPTIDE 2020-06-21 05:45:00 Ofelia Daniels n [facility] SMEAR REVIEW 2020-06-21 05:45:00 Viktor Cruz Meth odist COMPREHENSIVE METABOLIC 2020-06-21 04:00:00 Viktor Cruz [facility] PANEL ESTIMATED GFR 2020-06-21 04:00:00 Viktor Cruz Meth odist LIPASE LEVEL 2020-06-21 04:00:00 Viktor Cruz odnohelia XR CHEST 1 VW PORTABLE 2020-06-21 01:18:40 Ofelia Daniels on [facility] ECG 12-LEAD 2020-06-20 22:50:00 Joseph Rigginsjustahelen Chaidez HC COMPLETE BLD COUNT 2020-06-20 22:30:00 Ofelia Daniels [facility] W/AUTO DIFF BASIC METABOLIC PANEL 2020-06-20 22:30:00 Ofelia Daniels [facility] ESTIMATED GFR 2020-06-20 22:30:00 Ofelia Daniels Meth odist MAGNESIUM LEVEL 2020-06-20 22:30:00 Ofelia Daniels Meth odist PHOSPHORUS LEVEL 2020-06-20 22:30:00 Ofelia Daniels hodnohelia CREATINE KINASE, TOTAL 2020-06-20 21:56:00 Viktor Cruz on [facility] (CPK) TROPONIN 2020-06-20 21:53:00 Viktor Cruz odnohelia POC GLUCOSE 2020-06-20 21:48:00 Viktor Cruz Meth odist SURGICAL PATHOLOGY 2020-06-20 14:38:00 Viktor Cruz ethodist REQUEST SURGICAL PATHOLOGY 2020-06-20 13:38:00 Viktor Cruz ethodist REQUEST US UPPER GI TRACT, 2020-06-20 13:35:00 Carolin Sanches ethodist ENDOSCOPIC HC COMPLETE BLD COUNT 2020-06-20 05:50:00 Viktor Cruz [facility] W/AUTO DIFF PROTHROMBIN TIME WITH INR 2020-06-20 05:50:00 Viktor Cruz [facility] COMPREHENSIVE METABOLIC 2020-06-20 05:50:00 Viktor Cruz [facility] PANEL MAGNESIUM LEVEL 2020-06-20 05:50:00 Viktor Cruz Meth odist PHOSPHORUS LEVEL 2020-06-20 05:50:00 Viktor Cruz hodist ESTIMATED GFR 2020-06-20 05:50:00 Viktor Cruz Meth odist SMEAR REVIEW 2020-06-20 05:50:00 LiViktor odist COVID-19 QUALITATIVE PCR 2020-06-19 14:52:00 Verónica Coe KyrieJason hopkins [facility] COMPREHENSIVE METABOLIC 2020-06-19 05:30:00 Viktor Cruz Chelly muñiz [facility] PANEL HC COMPLETE BLD COUNT 2020-06-19 05:30:00 Viktor Cruz Rishabh jefferson [facility] W/AUTO DIFF PROTHROMBIN TIME WITH INR 2020-06-19 05:30:00 Viktor Cruz Aurelio wilburn [facility] ESTIMATED GFR 2020-06-19 05:30:00 Viktor Cruz Meth odist SMEAR REVIEW 2020-06-19 05:30:00 Viktor Cruz Meth odist HC COMPLETE BLD COUNT 2020-06-18 02:56:00 Viktor Cruz Rishabh jefferson [facility] W/AUTO DIFF BASIC METABOLIC PANEL 2020-06-18 02:56:00 NancyViktor Rishabh jefferson [facility] PROTHROMBIN TIME WITH INR 2020-06-18 02:56:00 Viktor Cruz Aurelio wilburn [facility] ESTIMATED GFR 2020-06-18 02:56:00 Viktor Cruz Meth odist SMEAR REVIEW 2020-06-18 02:56:[address] ABDOMEN W WO CONTRAST 2020-06-17 11:36:28 Myra Quinn [facility] HC COMPLETE BLD COUNT 2020-06-17 06:22:00 Meek Suresh [facility] W/AUTO DIFF BASIC METABOLIC PANEL 2020-06-17 06:22:00 Meek Suresh HEPATIC FUNCTION PANEL 2020-06-17 06:22:00 Sharonda Suresh PROTHROMBIN TIME WITH INR 2020-06-17 06:22:00 Dipak Suersh MAGNESIUM LEVEL 2020-06-17 06:22:00 Meek Suresh [facility] ESTIMATED GFR 2020-06-17 06:22:00 Meek Suresh on [facility] SMEAR REVIEW 2020-06-17 06:22:00 Meek Suresh [facility] NM GASTRIC EMPTYING 2020-06-16 14:21:01 Meek Suresh [facility] HC COMPLETE BLD COUNT 2020-06-16 04:25:00 Meek Suresh [facility] W/AUTO DIFF BASIC METABOLIC PANEL 2020-06-16 04:25:00 Meek Suresh [facility] HEPATIC FUNCTION PANEL 2020-06-16 04:25:00 Sharonda Suresh [facility] PROTHROMBIN TIME WITH INR 2020-06-16 04:25:00 Dipak Suresh [facility] MAGNESIUM LEVEL 2020-06-16 04:25:00 Meek Suresh on [facility] ESTIMATED GFR 2020-06-16 04:25:00 Meek Suresh on [facility] PHOSPHORUS LEVEL 2020-06-16 04:25:00 Meek Suresh [facility] SMEAR REVIEW 2020-06-16 04:25:00 Meek Suresh on [facility] HC COMPLETE BLD COUNT 2020-06-15 07:45:00 Meek Suresh [facility] W/AUTO DIFF SMEAR REVIEW 2020-06-15 07:45:00 Meek Suresh on [facility] CBC WITH PLATELET AND 2020-06-15 04:30:00 Meek Suresh DIFFERENTIAL BASIC METABOLIC PANEL 2020-06-15 04:30:00 Meek Suresh HEPATIC FUNCTION PANEL 2020-06-15 04:30:00 Sharonda Suresh [facility] PROTHROMBIN TIME WITH INR 2020-06-15 04:30:00 Dipak Suresh [facility] MAGNESIUM LEVEL 2020-06-15 04:30:00 Meek Suresh on [facility] ESTIMATED GFR 2020-06-15 04:30:00 Meek Suresh on [facility] PHOSPHORUS LEVEL 2020-06-15 04:30:00 Meek Suresh [facility] HC COMPLETE BLD COUNT 2020-06-14 04:40:00 Meek Suresh [facility] W/AUTO DIFF BASIC METABOLIC PANEL 2020-06-14 04:40:00 Meek Suresh [facility] HEPATIC FUNCTION PANEL 2020-06-14 04:40:00 Sharonda Suresh [facility] PROTHROMBIN TIME WITH INR 2020-06-14 04:40:00 Dipak Suresh [facility] MAGNESIUM LEVEL 2020-06-14 04:40:00 Meek Suresh on [facility] ESTIMATED GFR 2020-06-14 04:40:00 Meek Suresh on [facility] PHOSPHORUS LEVEL 2020-06-14 04:40:00 Meek Suresh [facility] SMEAR REVIEW 2020-06-14 04:40:00 Meek Suresh on [facility] XR ABDOMEN 1 VW 2020-06-13 14:18:40 Meek Suresh on [facility] HC COMPLETE BLD COUNT 2020-06-13 04:39:00 Meek Suresh [facility] W/AUTO DIFF BASIC METABOLIC PANEL 2020-06-13 04:39:00 Meek Suresh [facility] HEPATIC FUNCTION PANEL 2020-06-13 04:39:00 Sharonda Suresh [facility] PROTHROMBIN TIME WITH INR 2020-06-13 04:39:00 Dipak Suresh [facility] MAGNESIUM LEVEL 2020-06-13 04:39:00 Meek Suresh on [facility] ESTIMATED GFR 2020-06-13 04:39:00 Meek Suresh on [facility] SMEAR REVIEW 2020-06-13 04:39:00 Meek Suresh on [facility] HC COMPLETE BLD COUNT 2020-06-12 06:19:00 Meek Suresh [facility] W/AUTO DIFF BASIC METABOLIC PANEL 2020-06-12 06:19:00 Meek Suresh [facility] HEPATIC FUNCTION PANEL 2020-06-12 06:19:00 Sharonda Suresh [facility] PROTHROMBIN TIME WITH INR 2020-06-12 06:19:00 Dipak Suresh [facility] MAGNESIUM LEVEL 2020-06-12 06:19:00 Meek Suresh on [facility] ESTIMATED GFR 2020-06-12 06:19:00 Meek Suresh on [facility] SMEAR REVIEW 2020-06-12 06:19:00 Meek Suresh on [facility] HC COMPLETE BLD COUNT 2020-06-11 04:25:00 Meek Suresh [facility] W/AUTO DIFF BASIC METABOLIC PANEL 2020-06-11 04:25:00 Meek Suresh [facility] HEPATIC FUNCTION PANEL 2020-06-11 04:25:00 Sharonda Suresh [facility] PROTHROMBIN TIME WITH INR 2020-06-11 04:25:00 Dipak Suresh [facility] MAGNESIUM LEVEL 2020-06-11 04:25:00 Meek Suresh on [facility] ESTIMATED GFR 2020-06-11 04:25:00 Meek Suresh on [facility] SMEAR REVIEW 2020-06-11 04:25:00 Meek Suresh on [facility] PROTHROMBIN TIME WITH INR 2020-06-10 05:15:00 Dipak Suresh [facility] HC COMPLETE BLD COUNT 2020-06-10 05:15:00 Meek Suresh [facility] W/AUTO DIFF COMPREHENSIVE METABOLIC 2020-06-10 05:15:00 Sina Suresh [facility] PANEL ESTIMATED GFR 2020-06-10 05:15:00 Meek Suresh on [facility] URINALYSIS SCREEN AND 2020-06-09 23:20:00 Meek Suresh [facility] MICROSCOPY, WITH REFLEX TO CULTURE URINE CULTURE 2020-06-09 23:20:00 Meek Suresh on [facility] CT ABDOMEN PELVIS W 2020-06-09 22:26:44 Jefferson Skelton [facility] CONTRAST BLOOD CULTURE, AEROBIC & 2020-06-09 21:35:00 Ricardo Suresh [facility] ANAEROBIC BLOOD CULTURE, AEROBIC & 2020-06-09 21:30:00 Ricardo Suresh ANAEROBIC COVID-19 QUALITATIVE PCR 2020-06-09 20:42:00 Ricardo Suresh HC COMPLETE BLD COUNT 2020-06-09 14:46:00 Zafar Zapien [facility] W/AUTO DIFF SMEAR REVIEW 2020-06-09 14:46:00 Zafar Zapien ethodist COMPREHENSIVE METABOLIC 2020-06-09 11:53:00 Zafar Zapien [facility] PANEL LIPASE LEVEL 2020-06-09 11:53:00 Zafar Zapien LACTIC ACID LEVEL, SEPSIS 2020-06-09 11:53:00 Zafar Zapien - NOW AND REPEAT 2X EVERY 3 HOURS ESTIMATED GFR 2020-06-09 11:53:00 Zafar Zapien ethodist BASIC METABOLIC PANEL 2020-03-22 05:15:00 Dinakar, Jeremy Desouza HC COMPLETE BLD COUNT 2020-03-22 05:15:00 Dinakar, Jeremy jefferson [facility] W/AUTO DIFF Deo MAGNESIUM LEVEL 2020-03-22 05:15:00 DinakarJeremy HEPATIC FUNCTION PANEL 2020-03-22 05:15:00 DinakarJeremy PHOSPHORUS LEVEL 2020-03-22 05:15:00 Dinakar, Jeremy Desouza PROTHROMBIN TIME WITH INR 2020-03-22 05:15:00 DinJeremy hernandez LIPASE LEVEL 2020-03-22 05:15:00 DinhomarJeremy odnohelia Childersra AMYLASE LEVEL 2020-03-22 05:15:00 DinJeremy hernandez ESTIMATED GFR 2020-03-22 05:15:00 DinJeremy hernandezra SMEAR REVIEW 2020-03-22 05:15:00 DinhomarJeremy odnohelia Childersra BASIC METABOLIC PANEL 2020-03-21 04:43:00 Dinakar, Jeremy Desouza CBC WITH PLATELET AND 2020-03-21 04:43:00 Dinakar, Jeremy jefferson [facility] DIFFERENTIAL Deo MAGNESIUM LEVEL 2020-03-21 04:43:00 Dinakar, Jeremy Tanner odist Deo HEPATIC FUNCTION PANEL 2020-03-21 04:43:00 Dinakar, Jeremy Baez on [facility] Deo PHOSPHORUS LEVEL 2020-03-21 04:43:00 Dinakar, Jeremy Frias hodnohelia Desouza PROTHROMBIN TIME WITH INR 2020-03-21 04:43:00 Dinakar, Jeremy wilburn [facility] Deo LIPASE LEVEL 2020-03-21 04:43:00 Dinakar, Jeremy Tanner odnohelia Childersra AMYLASE LEVEL 2020-03-21 04:43:00 Dinakar, Jeremy Childersra ESTIMATED GFR 2020-03-21 04:43:00 Dinakar, Jeremy Childersra MANUAL DIFFERENTIAL 2020-03-21 04:43:00 Dinakar, Jeremy Desouza BASIC METABOLIC PANEL 2020-03-20 05:20:00 Dinakar, Jeremy Desouza HC COMPLETE BLD COUNT 2020-03-20 05:20:00 Dinakar, Jeremy jefferson [facility] W/AUTO DIFF Deo MAGNESIUM LEVEL 2020-03-20 05:20:00 Dinakar, Jeremy Tanner odist Deo HEPATIC FUNCTION PANEL 2020-03-20 05:20:00 Dinakar, Jeremy Baez on [facility] Deo PHOSPHORUS LEVEL 2020-03-20 05:20:00 Dinakar, Jeremy Desouza PROTHROMBIN TIME WITH INR 2020-03-20 05:20:00 Dinakar, Jeremy wilburn [facility] Deo LIPASE LEVEL 2020-03-20 05:20:00 Dinakar, Jeremy Childersra AMYLASE LEVEL 2020-03-20 05:20:00 Dinakar, Jeremy ayon Deo ESTIMATED GFR 2020-03-20 05:20:00 Dinakar, Jeremy ayon Deo SMEAR REVIEW 2020-03-20 05:20:00 Dinakar, Jeremy Childersra URINALYSIS, AUTOMATED 2020-03-19 12:52:00 Dinakar, Jeremy jefferson [facility] WITH MICROSCOPY Deo COVID-19 QUALITATIVE PCR 2020-03-19 11:58:00 Dinakar, Jeremy hopkins [facility] Deo BASIC METABOLIC PANEL 2020-03-19 11:55:00 Dinakar, Jeremy jefferson [facility] Deo HC COMPLETE BLD COUNT 2020-03-19 11:55:00 Dinakar, Jeremy jefferson [facility] W/AUTO DIFF Deo HEPATIC FUNCTION PANEL 2020-03-19 11:55:00 Dinakar, Jeremy Baez on [facility] Deo MAGNESIUM LEVEL 2020-03-19 11:55:00 Dinakar, Jeremy Dillard Meth odist Deo PHOSPHORUS LEVEL 2020-03-19 11:55:00 Dinakar, Jeremy Frias hodnohelia Childersra PROTHROMBIN TIME WITH INR 2020-03-19 11:55:00 Dinakar, Jeremy wilburn [facility] Deo AMYLASE LEVEL 2020-03-19 11:55:00 Dinakar, Jeremy Tanner odist Deo LIPASE LEVEL 2020-03-19 11:55:00 Dinakar, Jeremy Tanner odist Deo ESTIMATED GFR 2020-03-19 11:55:00 Dinakar, Jeremy Tanner odist Deo SMEAR REVIEW 2020-03-19 11:55:00 Dinakar, Jeremy Tanner odist Deo BASIC METABOLIC PANEL 2020-03-18 04:18:00 Dinakar, Jeremy jefferson [facility] Deo HC COMPLETE BLD COUNT 2020-03-18 04:18:00 Dinakar, Jeremy jefferson [facility] W/AUTO DIFF Deo MAGNESIUM LEVEL 2020-03-18 04:18:00 Dinakar, Jeremy Tanner odist Deo HEPATIC FUNCTION PANEL 2020-03-18 04:18:00 Dinakar, Jeremy Baez on [facility] Deo PHOSPHORUS LEVEL 2020-03-18 04:18:00 Dinakar, Jreemy Frias hodnohelia Childersra PROTHROMBIN TIME WITH INR 2020-03-18 04:18:00 Dinakar, Jeremy wilburn [facility] Deo LIPASE LEVEL 2020-03-18 04:18:00 Dinakar, Jeremy Tanner odist Deo AMYLASE LEVEL 2020-03-18 04:18:00 Dinakar, Jeremy Tanner odist Deo ALPHA FETOPROTEIN 2020-03-18 04:18:00 Myra Quinn [facility] ESTIMATED GFR 2020-03-18 04:18:00 Myra Quinn Me thodist SMEAR REVIEW 2020-03-18 04:18:00 Myra Quinn Me thodist CBC WITH PLATELET AND 2020-03-17 04:15:00 Viktor Cruz [facility] DIFFERENTIAL COMPREHENSIVE METABOLIC 2020-03-17 04:15:00 Viktor Cruz [facility] PANEL MAGNESIUM LEVEL 2020-03-17 04:15:00 NancyViktor Meth odist PHOSPHORUS LEVEL 2020-03-17 04:15:00 NancyViktor Met hodist PROTHROMBIN TIME WITH INR 2020-03-17 04:15:00 Viktor Cruz [place] [facility] URIC ACID LEVEL 2020-03-17 04:15:00 NancyViktor Meth odist LDH 2020-03-17 04:15:00 NancyViktor Meth odist ESTIMATED GFR 2020-03-17 04:15:00 NancyViktor Meth odist SMEAR REVIEW 2020-03-17 04:15:00 NancyViktor Meth odist CBC WITH PLATELET AND 2020-03-16 04:32:00 Viktor Cruz [facility] DIFFERENTIAL COMPREHENSIVE METABOLIC 2020-03-16 04:32:00 Viktor Cruz [facility] PANEL MAGNESIUM LEVEL 2020-03-16 04:32:00 NancyViktor Meth odist PHOSPHORUS LEVEL 2020-03-16 04:32:00 Nancy Viktor Dillard Met hodist PROTHROMBIN TIME WITH INR 2020-03-16 04:32:00 Viktor Cruz [place] [facility] URIC ACID LEVEL 2020-03-16 04:32:00 NancyViktor Meth odist LDH 2020-03-16 04:32:00 NancyViktor Meth odist ESTIMATED GFR 2020-03-16 04:32:00 Viktor Cruz Meth odist SMEAR REVIEW 2020-03-16 04:32:00 NancyViktor Meth odist CBC WITH PLATELET AND 2020-03-15 04:45:00 Viktor Cruz n [facility] DIFFERENTIAL PROTHROMBIN TIME WITH INR 2020-03-15 04:45:00 Viktor Cruz [facility] HEMOGLOBIN A1C 2020-03-15 04:45:00 NancyViktor Dillard Meth odist SMEAR REVIEW 2020-03-15 04:45:00 NancyViktor Meth odist PHOSPHORUS LEVEL 2020-03-15 04:00:00 NancyVigneshViktordanish Dillard Met hodist THYROID STIMULATING 2020-03-15 04:00:00 Viktor Cruz [facility] HORMONE T4 2020-03-15 04:00:00 NancyViktor Nishant Meth odist URIC ACID LEVEL 2020-03-15 04:00:00 NancyViktor Meth odist LDH 2020-03-15 04:00:00 NancyViktor Dillard Meth odist ESTIMATED GFR 2020-03-15 04:00:00 NancyViktor Nishant Tanner odist BILIRUBIN DIRECT 2020-03-15 04:00:00 NancyVigneshViktor Nishant Met hodist COMPREHENSIVE METABOLIC 2020-03-15 04:00:00 Viktor Cruz [facility] PANEL MAGNESIUM LEVEL 2020-03-15 04:00:[address] od[address] ABDOMEN WWO CONTRAST 2020-03-14 21:04:21 Viktor Cruz [facility] PELVIS W CONTRAST COMPREHENSIVE METABOLIC 2020-03-14 17:20:00 Viktor Cruz [facility] PANEL HC COMPLETE BLD COUNT 2020-03-14 17:20:00 Viktor Cruz n [facility] W/AUTO DIFF LIPASE LEVEL 2020-03-14 17:20:00 Nancy Viktoranita Tanner odist MAGNESIUM LEVEL 2020-03-14 17:20:00 NancyViktor Nishant Tanner odist PHOSPHORUS LEVEL 2020-03-14 17:20:00 Nancy Viktor Nishant Met hodist PROTHROMBIN TIME WITH INR 2020-03-14 17:20:00 Viktor Cruz [facility] LACTIC ACID LEVEL 2020-03-14 17:20:00 NancyVigneshViktor Nishant Me thodist ESTIMATED GFR 2020-03-14 17:20:00 NancyViktor Nishant Tanner odist SMEAR REVIEW 2020-03-14 17:20:00 NancyViktor Nishant Tanner odist COVID-19 QUALITATIVE PCR 2020-03-14 16:30:00 Viktor Cruz [facility] Plan of Care Planned Activity Planned Date Details Comments Source Future Scheduled 2021-10-[address] [facility] Test 00:00:00 (procedure) [code = [facility] 65851651] Future Scheduled 2020-11-09 INFLUENZA VACCINE [place] [facility] Test 00:00:00 [code = INFLUENZA VACCINE] Future Scheduled 2019-12-[address] [facility] - Test 00:00:00 (#1) [code = [facility] INFLUENZA VACCINE (#1)] Future Scheduled 2011 BREAST CANCER [place] [facility]ist Test 00:00:00 SCREENING [code = BREAST CANCER SCREENING] Future Scheduled 2011 COLONOSCOPY SCREENING [place] [facility] Test 00:00:00 [code = COLONOSCOPY SCREENING] Future Scheduled 2011 SHINGLES VACCINES [place] [facility] Test 00:00:00 (#1) [code = SHINGLES VACCINES (#1)] Future Scheduled [address] [facility] 00:[facility]00 malignant neoplasm of [facility] cervix (procedure) [code = 382315053] Future Scheduled 1982 Screening for [facility] thodist Test 00:00:00 malignant neoplasm of cervix (procedure) [code = 897984811] Future Scheduled 1979 Hepatitis C screening [place] [facility] Test 00:00:00 (procedure) [code = 601446530] Future Scheduled 1977 COVID-19 VACCINE (1) [place] ston [facility] Test 00:00:00 [code = COVID-19 VACCINE (1)] Future Scheduled [address] [facility] Test 00:00:00 malignant [facility] breast (procedure) [code = 002462528] Future Scheduled [address] [facility] Test 00:00:00 malignant ne[facility] colon (procedure) [code = 868196756] Encounters Start End Encounter Admission Attending Care Care Encounter Source Date/Time Date/Time Type Type Clinicians Facility Department ID 2020-06-09 2020-06-22 Inpatient VIKTOR CRUZ [place] [id number] [place] 00:00:00 00:00:[address] 2020-03-19 2020-03-23 Inpatient JAIME, [place] [id number] [place] 00:00:00 00:00:00 JEREMY [address] 2020-03-14 2020-03-18 Inpatient AJIME [place] [id number] [place] 00:00:00 00:00:00 JEREMY [address] 2020-02-13 2020-02-13 Laboratory Lab, [facility] [id number] 10:22:10 10:42:10 Only Fam [facility] [id number] [place] [id number] [facility] [id number] nal 0[address] 2019-09-28 2019-09-28 [facility] [id number] 09:[facility]00 09[facility] ent Clinics 2019-09-18 2019-09-18 [facility] [id number] [facility] 09:30:00 09:30:00 [facility] ent Clinics 2019-08-14 2019-08-14 Transition Jocelyne Alexandra [id number] 00:00:00 00:00:00 of Care Jovanny Sotelo [id number] [place]any [id number] [facility] 2019-08-10 2019-08-11 [facility] [id number] 02:55:00 16:09:00 Encounter Wes Amin [id number] [place] [id number] [place] [phone] [id number] Results Test Description Test Time Test Comments Results Result Comments Source ECG 12 lead 2020-06-22 19:46:03 Test Item Value Reference Range Interpretation Comme nts Ventricular rate (test code = 253) 78 Atrial rate (test code = 255) 78 CO interval (test code = 266) 152 QRSD interval (test code = 260) 144 QT interval (test code = 264) 442 QTC interval (test code = 265) 503 P axis 1 (test code = 267) 43 QRS axis 1 (test code = 268) 91 T wave axis (test code = 270) 21 EKG impression (test code = 273) Normal sinus rhythm-Right bundle b ranch block-Abnormal ECG-No previous ECGs available- [place] [facility] [id number] 14:59:44 Test Item Value Reference Range Interpretation Comments Case number (test code = [id number]) Surgical pathology See link below for report (test code = PDF Lab Report [id number]) Result status (test code This is Final Report = [id number]) for [id number] [place] [facility] Angiogram Pe [id number] 11:33:47Hm Interface, Radiology Results Incoming - 06/21/2020 11:36 AM CSTFormatting of this note might be di fferent from the original.EXAMINATION:CT ANGIOGRAM PE CHESTCLINICAL HISTORY:PE suspected low intermediate prob neg D-dimerTECHNIQUE:CT angiographic images of the chest were obtained during intravenous administration of iodinated contrast. Computerized reformatted images and 3-D MIP images were also obtained and archived (CT pulmonary embolus protocol).CT imaging was performed with iterative reconstruction techniques and/or automated exposure control to reduce radiation dose.COMPARISON:June 20, 2020 chest x-rayFINDINGS:1.Pulmonary arteries are well opacified and there are no filling defects identified to suggest acute pulmonary embolus.2.There is mild volume loss related to incomplete inspiration. No consolidation or groundglass opacification.3.Thoracic aorta is of normal caliber. No pleural orpericardial effusions.4.No mediastinal or hilar adenopathy.5.Limited scans through the upper abdomenshow a a nodular border of the liver consistent with chronic liver disease and cirrhosis, with diffuse enlargement of the spleen, better characterized on recent CT scan of the abdomen.IMPRESSION:No evidence of acute pulmonary embolus or other acute finding. Cirrhosis and splenomegaly better characterized on recent CT scan of the abdomen.[id number] Chest 1 Vw [id number] 02:07:34Hm Interface, Radiology Results Incoming - 06/21/2020 2:10 AM CST EXAMINATION: XR CHEST 1 VW PORTABLECLINICAL HISTORY: chest painCOMPARISON: CT abdomen, 06/17/2020IMPRESSION:Low lung volumes results in bronchovascular crowding and bibasilar atelectasis. Question/concern for superimposed perihilar vascular congestion. Correlate findings withbeta natruretic peptide levels to evaluate for any evidence of volume overload.Taking this into consideration, cardiomediastinal silhouette is at the upper limits of normal in size.Superimposed lung base consolidation cannot be excluded on this current AP radiograph with low lung volumes. No sizable pleural effusion. No pneumothorax identified.No acute osseous abnormalities are visualized.[id number]_[id number] [facility]CT Abdomen W Wo [id number] 11:52:53Hm Interface, Radiology Results - 06/17/2020 11:55 AM CSTFormatting of this note might be di fferent from the original.EXAMINATION: CT ABDOMEN W WO CONTRASTCLINICAL HISTORY: 60 years old Female. Pancreatitis suspected, abdominal pain, chronic pancreatitis.TECHNIQUE: TECHNIQUE: Multiple axialimages of the pancreas were obtained before, during, and after intravenous administration of iodinated contrast (pancreas focus). Sagittal and coronal computerized reformatted images were also obtained.CT imaging was performed with iterative reconstruction techniques and/or automated exposure control to reduce radiation dose.Oral contrast was administered. COMPARISON: CT abdomen pelvis 06/10/2019, 03/14/2020, 05/26/2015, CT abdomen 05/09/2015IMPRESSION:LUNG BASES:The lung bases are free of acute disease.ABDOMEN:Liver: Measures 16.5 cm in craniocaudal dimension with mildly nodular contour. Mild hypertrophy of the caudate lobe and widening of the periportal space.Gallbladder/Biliary: The gallbladder is surgically absent.Spleen: The spleen is enlarged. Measures 20.5 cm in craniocaudal dimension, similarto prior.Pancreas: No peripancreatic or intrapancreatic fluid collection. Pancreatic duct is not visualized and not ectatic. Questionable trace peripancreatic inflammatory fat stranding in the region of the head of the pancreas. No discrete mass lesion.Adrenal Glands: The adrenal glands are unremarkable.Kidneys: 2 mm nonobstructive nephrolithiasis in the right kidney, inferior pole. Subcentimeter hypoattenuating lesion in the right superior kidney, too small to characterize, likely a cyst.Vascular: The abdominal aorta is nonaneurysmal. Portal veins are patent. Recanalized umbilical vein. Patulous perisplenic collaterals. 2.9 x 2.3 cm splenic arterial aneurysm near the hilum (series 10, image 49), not significantly changed since 03/14/2020 examination, however, substantially increased from 1.3 x 1.0 cm on the 05/09/2015 examination. The neck of the aneurysm measures approximately 3.8 mm (series 10,image 52).Nodes: Subcentimeter short axis periportal and gastrohepatic ligament lymph nodes are again noted, likely reactive.Bowel: No bowel obstruction or inflammatory changes.Ascites/fluid collections: No ascites or fluid collections.MUSCULOSKELETAL: No suspicious osseous lesions.SUMMARY:1. No peripa ncreatic or intrapancreatic fluid collection or discrete mass lesion in this patient with reported elevated serum lipase.2. Nodular, cirrhotic liver with sequelae of portal hypertension including marked splenomegaly, recanalized umbilical vein and perisplenic collaterals.3. 2.9 x 2.3 cm splenic arterial aneurysm, not significantly changed in size since 03/14/2020 examination, however increased from 1.3 x 1.0 cm on the 05/09/2015 examination. Vascular surgery consultation may be considered for further evaluation, if indicated clinically.[place]-[id number] MethodistNE Gastric [id number] 14:38:06 Interface, Radiology Results 06/16/2020 2:41 PM CST PROCEDURE: NM GASTRIC EMPTYINGINDICATION: Epigastric pain. TECHNIQUE: 0.5millicuries of [id number] colloid were mixed with an egg and cooked. The egg was fed to the patient and dynamic imaging of the abdomen in the anterior and posterior projections was performed for 90 minutes. The patient was only able to tolerate 75% of the egg. Quantification of gastric emptying wasperformed using the geometric mean of the anterior and posterior projections. FINDINGS: The half-time of emptying is 49 minutes. Normal is <100 minutes. IMPRESSION: Normal gastric emptying.[facility] [id number] and approved by financial institution president/fellow: Santhosh Conway, Russell Junior MD, personally reviewed the images and resident's/fellow's findings and agree with the final report.[place] [facility] Abdomen 1 Vw 2020-06-13 14:30:22Hm Interface, Radiology Results 06/13/2020 2:33 PM CST XR ABDOMEN 1 VWCLINICAL INDICATION: Nausea vomiting, SBO COMPARISON: None availableIMPRESSION:There is prominent gas throughout top normal caliber loops of large and small bowel. There is moderate fecal debris throughout the colon. No radiopaque calculi are identified. There are multiple clips over the right upper quadrant consistent with cholecystectomy. There is marked enlargement of the splenic contour consistent with severe splenomegaly corresponding with recent CT. Bones are unremarkable for age and lung bases appear clear.*1D2RAD_PS08[facility] Roman CatholicUrine [id number] 01:05:20 Test Item Value Reference Range Interpretation Comments Urine culture (test SEE COMMENT Bacteriu bartolo screen code = [id number]) negative. [facility]CT Abdomen Pelvis W [id number] 22:41:44Hm Interface, Radiology Results Incoming 06/09/2020 10:44 PM CST Examination: CT ABDOMEN PELVIS W CONTRASTClinical history: ruq and epigastric painComparison: March 14Technique: Enteric contrast was not administered.CT scans are performedusing radiation dose reduction techniques. Technical factors are evaluated and adjusted to ensure appropriate moderation of exposure. Automated dose management technology is applied to adjust radiation exposure while achieving a diagnostic quality image.IMPRESSION: The visualized lung bases are clear .Abdomen:1. Changes of cirrhosis, splenomegaly, and perisplenic varices are similar. The splenic, mesenteric, and portal veins are patent. A subcentimeter right renal cyst demonstrates simple characteristics. 0.2 cm nonobstructing right renal calculus is stable. The kidneys, adrenal glands, and pancreas are otherwise unremarkable.2. Cholecystectomy. The pancreatic and biliary ducts are not dilated.The abdominal aorta is normal caliber.3. The bowel is not dilated. The appendix has been removed.4. There is no significant abdominal wall defect, hernia, or abscess.Pelvis:1. Hysterectomy. The bladder is nondistended.2. There is no acute osseous pathology.CONCLUSION: 1.CHOLECYSTECTOMY, APPENDECTOMY, HYSTERECTOMY.2.CIRRHOSIS AND SPLENOMEGALY WITHOUT ASCITES.3.OTHERWISE STABLE EXAM ABOVE WITHOUT ACUTE ABNORMALITY.[facility]-MPHYDWLHouston MethodistCT Abdomen WWO Contrast, Pelvis W [id number] 23:51:35Hm Interface, Radiology Results - 03/14/2020 11:[address] ABDOMEN WWO CONTRAST PELVIS W CONTRASTCLINICAL INDICATION: pancreatitis TECHNIQUE: Multidetector CT of the [...] prominence of the biliary ductal system. SPLEEN: Splenomegaly,measuring 21 cm in length.PANCREAS: Mildly edematous appearance of the pancreatic head is seen, raising suspicion for acute focal pancreatitis. No suspicious pancreatic lesions or fluid collections are identified. Given the wall thickening seen of the distal stomach and duodenum in this region, this a ppearance could also be reactive to gastroduodenitis.ADRENALS: Normal. KIDNEYS: Nonobstructive calculus is seen of interpolar right kidney. Left kidney is normal. No hydronephrosis or hydroureter.PERITONEUM: Trace ascites. No free intraperitoneal air. VASCULAR: No aortic aneurysm, dissection, or pse udoaneurysm.Recanalized umbilical vein is identified. Some anterior abdominal mesenteric varices areseen. Enlarged splenic vein. These findings are compatible with portal hypertension.LYMPH NODES: Noenlarged lymph nodes in the abdomen or pelvis.GI: [...] abnormalities. Mild degenerative change of the lower thoracicspine.SOFT TISSUES: Unremarkable.Summary:Cirrhotic liver with trace ascites. Enlarged splenic vein,recanalized umbilical vein, and some anterior abdominal mesenteric varices are seen, compatible withportal hypertension.Mildly edematous appearance of the pancreatic head is seen, raising suspicion for acute focal pancreatitis. Given the wall thickening seen of the distal stomach and duodenum in thisregion, this appearance could also be reactive to gastroduodenitis.Nonobstructive calculus is seen of right renal collecting system.[place]-[id number] MethodistRAD, CHEST, 1 VIEW, NON [id number] 07:50:00Reason for exam:->SOBShould this be performed at the bedside?->Yes FINAL REPORT CLINICAL HISTORY: SOB TECHNIQUE: 1 view of the chest. COMPARISON: None IMPRESSION: There is pulmonary vascular congestion with prominent lung markings bilaterally. Subpulmonic pleural effusions cannot be excluded. The cardiomediastinal silhouette is magnified by technique. Signed: Franky Louis MDReport Verified Date/Time: 10/03/2018 07:50:47 Reading Location: [facility] Radiology Reading Room [id number] 07:37:00 Test Item Value Reference Range Interpretation Comments MAGNESIUM (BEAKER) (test code = 1.6 mg/dL 1.6-2.6 627) BASIC METABOLIC [id number] 07:37:00 Test Item Value Reference Range Interpretation [...] DIALYSIS PATIEN TS. Specimen slightly ictericHEPATIC FUNCTION [id number] 07:37:00 Test Item Value Reference Range Interpretation [...] 35 U/L 6-55 347) Specimen slightly ictericPROTHROMBIN TIME/[id number] 06:25:00 Test Item Value Reference Range Interpretation [...] mechanical heart valves.CBC W/PLT COUNT & AUTO [id number] 06:16:00 Test Item Value Reference Range Interpretation [...] = 3438) Received comment: User comments: Slide comments:[id number] 05:58:00 Test Item Value Reference Range Interpretation Comments MAGNESIUM (BEAKER) (test code = 1.6 mg/dL 1.6-2.6 627) BASIC METABOLIC [id number] 05:58:00 Test Item Value Reference Range Interpretation [...] DIALYSIS PATIEN TS. Specimen slightly ictericHEPATIC FUNCTION [id number] 05:58:00 Test Item Value Reference Range Interpretation [...] 39 U/L 6-55 347) Specimen slightly ictericPROTHROMBIN TIME/[id number] 05:26:00 Test Item Value Reference Range Interpretation [...] mechanical heart valves.CBC W/PLT COUNT & AUTO [id number] 05:20:00 Test Item Value Reference Range Interpretation [...] WBC 0-0 (test code = 413) VITAMIN [id number] 06:57:00 Test Item Value Reference Range Interpretation Comments VITAMIN B12 (BEAKER) (test code = 178 pg/mL 213-816 L 774) [id number] 06:57:00 Test Item Value Reference Range Interpretation Comments FERRITIN (BEAKER) (test code = 361) 21 ng/mL 5-275 FOLATE, [id number] 06:57:00 Test Item Value Reference Range Interpretation [...] 28 % 20-55 (test code = 2590) [id number] 05:59:00 Test Item Value Reference Range Interpretation Comments MAGNESIUM (BEAKER) (test code = 1.7 mg/dL 1.6-2.6 627) BASIC METABOLIC [id number] 05:59:00 Test Item Value Reference Range Interpretation [...] FOR DIALYSIS PATIEN TS. Specimen slightly ictericLIPID [id number] 05:59:00 Test Item Value Reference Range Interpretation [...] Very High >=190 Specimen slightly ictericHEPATIC FUNCTION [id number] 05:59:00 Test Item Value Reference Range Interpretation [...] = 41 U/L 6-55 347) Specimen slightly [id number] 05:59:00 Test Item Value Reference Range Interpretation Comments LIPASE (BEAKER) (test code = 749) 35 U/L 8-78 Specimen slightly ictericPROTHROMBIN [id number] 05:58:00 Test Item Value Reference Range Interpretation [...] mechanical heart valves.CBC W/PLT COUNT & AUTO [id number] 05:37:00 Test Item Value Reference Range Interpretation [...] PERCENT (BEAKER) (test code = 2801) POCT-HEMOGLOBIN [id number] 06:12:00 Test Item Value Reference Range Interpretation Comments POC-HEMOGLOBIN METER 8.6 g/dL 12.0-15.0 L TESTED AT [facility] 6720 (BEAKER) (test code = JOANNA BARAHONA [address] 1539)
[2020-07-22] MEDS ORDERED: LEVALBUTEROL 1.25 MG/3 ML NEB ONE (16:14)
[2020-07-22] MEDS ORDERED: BENZONATATE 100 MG CAP PO ONE (16:14)
--- NOTE | 2020-07-22 16:25 | RAD REPORT ---
EXAM DESCRIPTION: RAD - Chest Single View - 07/22/2020 4:04 pm CLINICAL HISTORY: SOB COMPARISON: Portable July 16 TECHNIQUE: AP portable chest image was obtained 07/22/2020 4:04 pm . FINDINGS: Exam is limited by portable technique, large body habitus and shallow inspiration. No dens e consolidation. Generally, interstitial opacification is not substantially different. There is a vag ue or subtle increase in opacification in the right upper lung field. Likelihood of new right upper l obe pneumonia is low but not excluded. This can be monitored on subsequent imaging. Heart and vasculature are normal. No measurable pleural effusion and no pneumothorax. No acute bony abnormality seen. No acute aortic findings suspected. IMPRESSION: Limited study not substantially different from July 16 imaging. Vague or subtle increased opacification right upper lobe is probably not a true infiltrate but can be monitored on subsequent imaging.
[2020-07-22 16:37] LABS: Absolute Lymphocytes (CBC) 0.5 K/uL (0.7-4.9); Basophils % 0.4 % (0-1.3); Lymphocytes % 14.6 % (15.3-44.8); MPV 8.3 fL (7.6-11.3); RBC Red Blood Cell Count 3.67 M/uL (3.86-4.86)
[2020-07-22 16:46] LABS: Protime INR 1.16
[2020-07-22 16:58] LABS: ALT/SGPT 55 U/L (12-78); AST/SGOT 46 U/L (15-37); Alkaline Phosphatase 167 U/L (45-117); BUN Blood Urea Nitrogen 8 mg/dL (7-18); Bicarbonate 27 mmol/L (21-32); Bilirubin Direct 0.5 mg/dL (0-0.2); Bilirubin Total 1.6 mg/dL (0.2-1.0); Glucose Level 112 mg/dL (74-106); Lipase 255 U/L (73-393); Protein, Total 6.5 g/dL (6.4-8.2); Sodium Level 142 mmol/L (136-145)
[2020-07-22 17:01] LABS: Magnesium 2.2 mg/dL (1.8-2.4); NT PRO-BNP 16 pg/mL (<125); Troponin (Emerg Dept Use Only) < 0.02 ng/mL (0.0-0.045)
[2020-07-22] MEDS ORDERED: ENOXAPARIN 100 MG/ML SYR SQ ONE (17:22)
--- NOTE | 2020-07-22 17:56 | RAD REPORT ---
EXAM DESCRIPTION: CT - Chest Abdomen Pelvis W Cont - 07/22/2020 5:23 pm CLINICAL HISTORY: Cough;SOB COMPARISON: Abdomen Pelvis W Contrast dated 05/23/2020 TECHNIQUE: Following dynamic enhancement using 100 milliliters nonionic IV contrast, axial imaging o f the chest, abdomen and pelvis was performed. Biphasic technique was utilized through the abdomen. Oral contrast was administered. All CT scans are performed using dose optimization technique as appropriate and may include automated exposure control or mA/KV adjustment according to patient size. FINDINGS: Lungs are clear of mass and infiltrate. No pleural effusion, pleural thickening or pneumot horax. No significant aortic or pulmonary arterial tree finding. Mediastinal and hilar regions show n o mass or abnormal lymphadenopathy. No chest wall mass or axillary lymphadenopathy. Right breast lump ectomy changes are evident. Enlarged liver is seen with prominent lobular capsule contour. No focal liver lesion identifiable. Sp renee is prominent without focal lesion. Numerous varices are seen in the upper abdomen. Gallbladder i s absent. No biliary tree dilatation. No mass of the pancreatic parenchyma. Trace amount of stranding seen in the peripancreatic head and b sridevi region. Findings are less prominent than seen on the May comparison study. Symmetric renal function is seen with no mass or hydronephrosis. No adrenal abnormalities. Urinary bl adder is tightly contracted. Uterus is absent. Ovaries are absent or atrophic. No adnexal mass. Soft tissues of the perineum are slightly asymmetric. CT assessment is limited in this region. No dilated bowel loops or focal bowel wall thickening. There is fecalized bowel content in several sm all bowel loops. This could indicate an overall bowel stasis an enteritis. Stranding is seen in the m esenteric fat. No acute or destructive bony process. Degenerative changes are present. No significant vascular findings. IMPRESSION: CT chest imaging shows no acute or emergent finding. Advanced cirrhotic liver changes are present with no focal liver lesion identifiable. No ascites. Trace amount of stranding in the peripancreatic fat could represent very minimal pancreatitis if ther e are supporting clinical or laboratory findings. This is potentially remnant from the mild pancreati tis changes seen May 2020. No acute or emergent bowel finding. There are several loops of small bowel showing fecalized bowel co ntent. This can indicated bowel stasis and possible enteritis.
[2020-07-22] MEDS ORDERED: PROMETH/COD 6.25/10MG SYRUP 5ML ONE (18:35)
[2020-07-22] MEDS ORDERED: ALBUTEROL 2.5 MG/3 ML NEB SOL ONE (18:35)
[2020-07-22] MEDS ORDERED: IPRATROPIUM BROM 0.5MG/2.5ML ONE (18:35)
[2020-07-22] MEDS ORDERED: PANTOPRAZOLE 40 MG INJ ONE (18:49)
--- NOTE | 2020-07-22 18:49 | EDPHYS ---
Physician Documentation [facility] Name: Zenaida Goss Age: 60 yrs Sex: Female : 1960 Arrival Date: 07/22/2020 Time: 15:07 Bed 20 Private MD: Madhu Albarado R ED Physician Homero Terrell HPI: 07/22 15:43 This 60 yrs old Female presents to ER via Ambulatory with complaints of kdr Breathing Difficulty, Cough, heart racing. 15:43 The patient has shortness of breath at rest, with light activity, while working. Onset: kdr The symptoms/episode began/occurred suddenly, just prior to arrival. Duration: The symptoms are continuous, and are unchanged since they started. The patient's shortness of breath is aggravated by coughing, eating, exertion, light activity, is alleviated by nothing. Associated signs and symptoms: Pertinent positives: non-productive cough, nausea, Pertinent negatives: fever, hemoptysis, loss of consciousness, numbness in extremities, visual changes. Severity of symptoms: At their worst the symptoms were moderate in the emergency department the symptoms are unchanged. The patient has not experienced similar symptoms in the past. The patient has not recently seen a physician. Historical: - Allergies: 15:13 Dilaudid; aa5 15:13 Morphine (Anaphylaxis); aa5 - PMHx: 15:13 Anemia; breast cancer; Cirrhosis; fatty liver; Pancreatitis; varices; aa5 - PSHx: 15:13 Appendectomy; Cholecystectomy; Hysterectomy; Lumpectomy; aa5 - Immunization history:: Adult Immunizations up to date. - Social history:: Smoking status: Patient denies any tobacco usage or history of. ROS: 15:43 Constitutional: Negative for fever, chills, and weight loss, Eyes: Negative for injury, kdr pain, redness, and discharge, ENT: Negative for injury, pain, and discharge, Neck: Negative for injury, pain, and swelling, Cardiovascular: Negative for chest pain, palpitations, and edema, Abdomen/GI: Negative for abdominal pain, nausea, vomiting, diarrhea, and constipation, Back: Negative for injury and pain, : Negative for injury, bleeding, discharge, and swelling, MS/Extremity: Negative for injury and deformity, Skin: Negative for injury, rash, and discoloration, Neuro: Negative for headache, weakness, numbness, tingling, and seizure activity. Psych: Negative for depression, anxiety, suicide ideation, homicidal ideation, and hallucinations, Allergy/Immunology: Negative for hives, rash, and allergies, Endocrine: Negative for neck swelling, polydipsia, polyuria, polyphagia, and marked weight changes, Hematologic/Lymphatic: Negative for swollen nodes, abnormal bleeding, and unusual bruising. 15:43 Respiratory: Positive for cough, with no reported sputum, dyspnea on exertion, shortness of breath, wheezing, Negative for Exam: 15:43 Constitutional: This is a well developed, well nourished patient who is awake, alert, kdr and in mild distress. Head/Face: Normocephalic, atraumatic. Eyes: Pupils equal round and reactive to light, extra-ocular motions intact. Lids and lashes normal. Conjunctiva and sclera are non-icteric and not injected. Cornea within normal limits. Periorbital areas with no swelling, redness, or edema. Neck: Trachea midline, no thyromegaly or masses palpated, and no cervical lymphadenopathy. Supple, full range of motion without nuchal rigidity, or vertebral point tenderness. No Meningismus. Chest/axilla: Normal chest wall appearance and motion. Nontender with no deformity. No lesions are appreciated. Cardiovascular: Regular rate and rhythm with a normal S1 and S2. No gallops, murmurs, or rubs. Normal PMI, no JVD. No pulse deficits. Abdomen/GI: Soft, non-tender, with normal bowel sounds. No distension or tympany. No guarding or rebound. No evidence of tenderness throughout. Back: No spinal tenderness. No costovertebral tenderness. Full range of motion. Skin: Warm, dry with normal turgor. Normal color with no rashes, no lesions, and no evidence of cellulitis. MS/ Extremity: Pulses equal, no cyanosis. Neurovascular intact. Full, normal range of motion. Neuro: Awake and alert, GCS 15, oriented to person, place, time, and situation. Cranial nerves II-XII grossly intact. Motor strength 5/5 in all extremities. Sensory grossly intact. Cerebellar exam normal. Normal gait. Psych: Awake, alert, with orientation to person, place and time. Behavior, mood, and affect are within normal limits. 15:43 Respiratory: moderate respiratory distress is noted, Respirations: labored breathing, that is mild, shallow respirations, that is mild. 17:51 ECG was reviewed by the Attending Physician. kdr Vital Signs: 15:23 BP 151 / 50; Pulse 103; Resp 26 S; Temp 98.3(O); Pulse Ox 98% on R/A; Weight 115.67 kg; bp 16:30 BP 151 / 50; Pulse 97; Resp 19; Pulse Ox 99% ; bp 17:20 BP 142 / 50; Pulse 88; Resp 20; Pulse Ox 99% ; bp 18:30 BP 114 / 45; Pulse 103; Resp 24; Pulse Ox 99% ; bp 19:00 BP 114 / 45; Pulse 104; Resp 23; Pulse Ox 98% on R/A; jb4 19:52 BP 141 / 66; Pulse 102; Resp 21; Pulse Ox 98% on R/A; jb4 MDM: 15:43 Data reviewed: vital signs, nurses notes, lab test result(s), radiologic studies. 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 18:19 Patient medically screened. [facility] 07/22 15:20 Order name: Basic Metabolic Panel; Complete Time: 17:05 [facility] 07/22 15:20 Order name: CBC with Diff; Complete Time: 16:49 [facility] 07/22 15:20 Order name: Hepatic Function; Complete Time: 17:05 [facility] 07/22 15:20 Order name: Lipase; Complete Time: 17:05 [facility] 07/22 15:43 Order name: Magnesium; Complete Time: 17:17 kdr 07/22 15:43 Order name: NT PRO-BNP; Complete Time: 17:17 [facility] 07/22 15:43 Order name: PT-INR; Complete Time: 17:05 [facility] 07/22 15:43 Order name: Troponin (emerg Dept Use Only); Complete Time: 17:17 [facility] 07/22 15:43 Order name: XRAY Chest (1 view); Complete Time: 16:49 [facility] 07/22 15:43 Order name: D-Dimer; Complete Time: 17:05 [facility] 07/22 18:27 Order name: AMMONIA; Complete Time: 19:26 vicente 07/22 18:28 Order name: COVID-19 : Document "Date of Symptom Onset" if Symptomatic. [facility] 07/22 19:48 Order name: SARS-COV-2 RT PCR EDND 07/22 15:20 Order name: IV Saline Lock; Complete Time: 16:25 [facility] 07/22 15:20 Order name: Labs collected and sent; Complete Time: 16:25 [facility] 07/22 15:43 Order name: EKG; Complete Time: 15:44 [facility] 07/22 15:43 Order name: Cardiac monitoring; Complete Time: 16:24 [facility] 07/22 15:43 Order name: EKG - Nurse/Tech; Complete Time: 16:24 [facility] 07/22 15:43 Order name: O2 Per Protocol; Complete Time: 16:24 [facility] 07/22 15:43 Order name: O2 Sat Monitoring; Complete Time: 16:24 [facility] 07/22 15:43 Order name: CT Chest, Abdomen, Pelvis - W/Contrast; Complete Time: 18:01 [facility] 07/22 18:23 Order name: US Extremity Venous W Compression Timbo vicente EC:51 Rate is 93 beats/min. Rhythm is regular, Sinus Rhythm with No ectopy, Right bundle kdr branch block. QRS Seaview is Normal. SC interval is normal. QRS interval is normal. QT interval is normal. Clinical impression: NSR w/ Non-specific ST/T Changes. Administered Medications: 16:00 Drug: Tessalon Perle (benzonatate) 200 mg Route: PO; bp 17:07 Follow up: Response: No adverse reaction bp 16:00 Drug: Xopenex (levalbuterol) 1.25 mg Route: Inhalation; bp 17:06 Drug: Lovenox (enoxaparin) 1 mg/kg Route: Sub-Q; Site: right lower abdomen; bp 17:07 Follow up: Response: No adverse reaction bp 18:15 Drug: Phenergan-Codeine Liquid (6.25mg - 10mg / 5mL) 10 ml Route: PO; bp 18:42 Follow up: Response: Marked relief of symptoms bp 18:15 Drug: Albuterol - atroVENT (ipratropium) (3:1) (2.5 mg - 0.5 mg) 3 ml Route: Nebulizer; bp 18:42 Follow up: Response: Marked relief of symptoms bp 18:30 Drug: ProTONIX 40 mg Route: IVP; Site: left antecubital; bp 18:42 Follow up: Response: No adverse reaction bp 19:52 Drug: [place] (HYDROcodone-acetaminophen) (7.5 mg-325 mg) 1 tabs Route: PO; jb4 Disposition: 07/22/20 18:49 Hospitalization ordered by Damon Roberts for Observation. Preliminary diagnosis are Dyspnea, Unspecified cirrhosis of liver - ANAYA, Obesity, unspecified, Chest pain, unspecified, Anemia, unspecified. - Bed requested for Telemetry/MedSurg (observation). - Status is Observation. jb4 - Condition is Stable. - Problem is new. - Symptoms are unchanged. Signatures: Dispatcher [employer] EDND Jazmín Westbrook, RN RN Homero Henning MD MD cha Rittger, Kevin, MD MD kdr Calderon, Audri RN RN aa5 Marco A Messina, IT APPLICATION DEVELOPMENT MANAGER-C IT APPLICATION DEVELOPMENT MANAGER-Cla1 Gilberto Hoang RN RN jb4 Zev Burrell RN RN bp Corrections: (The following items were deleted from the chart) 18:54 18:29 CORONAVIRUS ordered. [facility] EDND 20:15 18:49 Hospitalization Ordered by Damon Roberts DO for Observation. Preliminary diagnosis is Dyspnea; Unspecified cirrhosis of liver - ANAYA; Obesity, unspecified; Chest pain, unspecified; Anemia, unspecified. Bed requested for Telemetry/MedSurg (observation). Status is Observation. Condition is Stable. Problem is new. Symptoms are unchanged. [facility] 20:34 20:15 07/22/2020 18:49 Hospitalization Ordered by Damon Roberts DO for Observation. jb4 Preliminary diagnosis is Dyspnea; Unspecified cirrhosis of liver - ANAYA; Obesity, unspecified; Chest pain, unspecified; Anemia, unspecified. Bed requested for Telemetry/MedSurg (observation). Status is Observation. Condition is Stable. Problem is new. Symptoms are unchanged. dw
--- NOTE | 2020-07-22 18:49 | ER ---
Nurse's Notes [facility] Name: Zenaida Goss Age: 60 yrs Sex: Female : 1960 Arrival Date: 07/22/2020 Time: 15:07 Bed 20 Private MD: Madhu Albarado R Diagnosis: Dyspnea;Unspecified cirrhosis of liver-ANAYA;Obesity, unspecified;Chest pain, unspecified;Anemia, unspecified Presentation: 07/22 15:23 Chief complaint: Chief complaint: Patient states: SOB, cough, and palpitations that aa5 began today at work. Pt also c/o "pain between shoulder blades". 15:23 Coronavirus screen: cough unrelated to allergies. aa5 15:23 Acuity: TANK 3 aa5 15:23 Method Of Arrival: Ambulatory aa5 15:23 Ebola Screen: Patient negative for fever greater than or equal to 101.5 degrees aa5 Fahrenheit, and additional compatible Ebola Virus Disease symptoms. 15:23 Initial Sepsis Screen: Does the patient meet any 2 criteria? RR > 20 per min. HR > 90 aa5 bpm. Does the patient have a suspected source of infection? No. Patient's initial sepsis screen is negative. Risk Assessment: Do you want to hurt yourself or someone else? Patient reports no desire to harm self or others. Onset of symptoms was July 2020. Triage Assessment: 15:15 General: Appears distressed, uncomfortable, Behavior is cooperative, appropriate for bp age, anxious. Pain: Complains of pain in back. EENT: No deficits noted. Neuro: No deficits noted. Cardiovascular: No deficits noted. Respiratory: Reports cough that is Onset: The symptoms/episode began/occurred yesterday, the patient has moderate shortness of breath. GI: No signs and/or symptoms were reported involving the gastrointestinal system. : No signs and/or symptoms were reported regarding the genitourinary system. Derm: No deficits noted. Musculoskeletal: No deficits noted. Historical: - Allergies: 15:13 Dilaudid; aa5 15:13 Morphine (Anaphylaxis); aa5 - PMHx: 15:13 Anemia; breast cancer; Cirrhosis; fatty liver; Pancreatitis; varices; aa5 - PSHx: 15:13 Appendectomy; Cholecystectomy; Hysterectomy; Lumpectomy; aa5 - Immunization history:: Adult Immunizations up to date. - Social history:: Smoking status: Patient denies any tobacco usage or history of. Screenin:15 Abuse screen: Denies threats or abuse. Denies injuries from another. Nutritional bp screening: No deficits noted. Tuberculosis screening: No symptoms or risk factors identified. Fall Risk None identified. Assessment: 15:15 General: SEE TRIAGE NOTE. bp 17:15 Reassessment: PT TO CT. Cardiovascular: Rhythm is sinus rhythm. Respiratory: Airway is bp patent Respiratory effort is even, labored, Breath sounds are clear. 17:34 Reassessment: PT RETURNED FROM CT. bp 18:30 Reassessment: No changes from previously documented assessment. Patient and/or family bp updated on plan of care and expected duration. Pain level reassessed. Patient is alert, oriented x 3, equal unlabored respirations, skin warm/dry/pink. ADMIT INITIATED. 19:00 Reassessment: Patient appears in no apparent distress at this time. Patient and/or jb4 family updated on plan of care and expected duration. Pain level reassessed. Patient is alert, oriented x 3, equal unlabored respirations, skin warm/dry/pink. 20:32 Reassessment: Patient appears in no apparent distress at this time. Patient and/or jb4 family updated on plan of care and expected duration. Pain level reassessed. Patient is alert, oriented x 3, equal unlabored respirations, skin warm/dry/pink. Vital Signs: 15:23 BP 151 / 50; Pulse 103; Resp 26 S; Temp 98.3(O); Pulse Ox 98% on R/A; Weight 115.67 kg; bp 16:30 BP 151 / 50; Pulse 97; Resp 19; Pulse Ox 99% ; bp 17:20 BP 142 / 50; Pulse 88; Resp 20; Pulse Ox 99% ; bp 18:30 BP 114 / 45; Pulse 103; Resp 24; Pulse Ox 99% ; bp 19:00 BP 114 / 45; Pulse 104; Resp 23; Pulse Ox 98% on R/A; jb4 19:52 BP 141 / 66; Pulse 102; Resp 21; Pulse Ox 98% on R/A; jb4 ED Course: 15:07 Patient arrived in ED. mr 15:07 Madhu Albarado MD is Private Physician. mr 15:15 Patient has correct armband on for positive identification. Bed in low position. Call bp light in reach. Side rails up X2. Adult w/ patient. 15:19 Zev Burrell, RN is Primary Nurse. bp 15:19 Lenny Enrique MD is Attending Physician. kdr 15:23 Arm band placed on. EKG completed in triage. Results shown to MD. aa5 15:29 Triage completed. aa5 15:45 Inserted saline lock: 20 gauge in left antecubital area, using aseptic technique. Blood bp collected. 16:04 XRAY Chest (1 view) In Process Unspecified. EDMS 17:23 CT Chest, Abdomen, Pelvis - W/Contrast In Process Unspecified. EDMS 18:19 Attending Physician role handed off by Lenny Enrique MD vicente 18:19 Homero Terrell MD is Attending Physician. vicente 18:47 Damon Roberts DO is Hospitalizing Provider. vicente 19:25 US Extremity Venous W Compression Tibmo In Process Unspecified. EDMS 20:32 No provider procedures requiring assistance completed. Patient admitted, IV remains in jb4 place. Administered Medications: 16:00 Drug: Tessalon Perle (benzonatate) 200 mg Route: PO; bp 17:07 Follow up: Response: No adverse reaction bp 16:00 Drug: Xopenex (levalbuterol) 1.25 mg Route: Inhalation; bp 17:06 Drug: Lovenox (enoxaparin) 1 mg/kg Route: Sub-Q; Site: right lower abdomen; bp 17:07 Follow up: Response: No adverse reaction bp 18:15 Drug: Phenergan-Codeine Liquid (6.25mg - 10mg / 5mL) 10 ml Route: PO; bp 18:42 Follow up: Response: Marked relief of symptoms bp 18:15 Drug: Albuterol - atroVENT (ipratropium) (3:1) (2.5 mg - 0.5 mg) 3 ml Route: Nebulizer; bp 18:42 Follow up: Response: Marked relief of symptoms bp 18:30 Drug: ProTONIX 40 mg Route: IVP; Site: left antecubital; bp 18:42 Follow up: Response: No adverse reaction bp 19:52 Drug: [place] (HYDROcodone-acetaminophen) (7.5 mg-325 mg) 1 tabs Route: PO; jb4 Outcome: 18:49 Decision to Hospitalize by Provider. vicente 20:32 Admitted to Med/surg accompanied by nurse, via stretcher, room 215, with chart, Report jb4 called to Robbin 20:32 Condition: stable 20:32 Discharge instructions given to patient, Instructed on the need for admit, Demonstrated understanding of instructions. 20:34 Patient left the ED. jb4 Signatures: Dispatcher [employer] EDMS Homero Terrell MD MD cha Rittger, Kevin, MD MD kdr Rivera, Mary mr JalilAline, RN RN aa5 Gilberto Hoang, RN RN jb4 Zev Burrell, ERIC RN bp Corrections: (The following items were deleted from the chart) 15:29 15:23 Chief complaint: aa5 aa5 15:30 15:27 Coronavirus screen: cough unrelated to allergies, aa5 aa5 15:30 15:27 Acuity: TANK 3 aa5 aa5 15:30 15:27 Method Of Arrival: Ambulatory aa5 aa5 16:58 15:23 BP 151 / 50; Pulse 103bpm; Resp 26bpm; Spontaneous; Pulse Ox 98% RA; Temp 98.3F bp Oral; aa5
--- NOTE | 2020-07-22 19:35 | RAD REPORT ---
EXAM DESCRIPTION: US - Extrem Venous W Compress Timbo - 07/22/2020 7:25 pm CLINICAL HISTORY: Pain;Swelling COMPARISON: None. TECHNIQUE: Real-time sonographic evaluation of the bilateral lower extremity common femoral, superfi cial femoral, popliteal and posterior tibial veins was performed. FINDINGS: Normal compressibility, flow augmentation, phasic flow and spontaneous flow are identified in the left and right lower extremity common femoral, superficial femoral, popliteal and posterior t ibial veins. No intraluminal filling defects seen. IMPRESSION: No DVT in either lower extremity.
[2020-07-22] MEDS ORDERED: HYDROCODONE/APAP 7.5/325 MG TAB ONE (20:04)
--- NOTE | 2020-07-22 20:20 | P.HP ---
Certification for Inpatient Patient admitted to: Observation With expected LOS: <2 Midnights Patient will require the following post-hospital care: None Practitioner: I am a practitioner with admitting privileges, knowledge of patient current condition, hospital course, and medical plan of care. Services: Services provided to patient in accordance with Admission requirements found in Title 42 Section 412.3 of the Code of Federal Regulations Patient History Date of Service: 07/22/20 Reason for admission: CP, SOB History of Present Illness: 60-year-old female with history of Anaya, cirrhosis, chronic pancreatitis, anemia presents emergency department for chest pain/shortness of breath. Patient reports that she was at work sitting in her chair when she had sudden onset of shortness of breath along with epigastric/chest pain. Patient presented to the emergency department for evaluation, labs significant for changes similar to her previous with chronic anemia hemoglobin 9.2 hematocrit 29.0, MCV 70.9 platelets 60, INR 1.16 AST 46 ALT 55, t bili 1.6 d bili 0.5, alk 167 ammonia 34 initial troponin 0.02 D-dimer elevated 1486 CT PE protocol negative for any acute findings, DVT study negative bilaterally. Patient still tachypneic, mildly tachycardic and having some discomfort, ED provider wishes to admit for further evaluation and management. Allergies morphine Allergy (Severe, Verified 11/19/19 13:14) Anaphylaxis Home Medications: Lactulose 15 ml PO BID 10/22/19 Furosemide 20 mg PO DAILY 05/23/20 Spironolactone 25 mg PO DAILY 05/23/20 Hydrocodone 10/APAP 325 [[place] 10/325] 1 tab PO Q6H PRN #40 tab 05/24/20 LORazepam [Ativan*] 0.5 mg PO DAILY PRN #30 tab 05/24/20 Lipase/Protease/Amylase [Remy Taylor 12,000 Units Capsule] 1 each PO TID #90 regan. 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 moist/pink Neck: Supple, 2+ carotid pulse no bruit, No LAD Respiratory: Clear to auscultation bilaterally, Normal air movement Cardiovascular: Regular rate/rhythm, Normal S1 S2 Gastrointestinal: Normal bowel sounds, No tenderness Musculoskeletal: No tenderness Integumentary: No rashes Neurological: Normal speech, Normal strength at 5/5 x4 extr, Normal tone, Normal affect - Studies Laboratory Data (last 24 hrs) 07/22/20 16:15: PT 13.4 H, INR 1.16 07/22/20 16:15: Magnesium 2.2 D 07/22/20 16:15: WBC 3.40 L, Hgb 9.2 L, Hct 29.0 L, Plt Count 60 L 07/22/20 16:15: Sodium 142, Potassium 4.0, BUN 8, Creatinine 0.51 L, Glucose 112 H, Total Bilirubin 1.6 H, AST 46 H, ALT 55, Alkaline Phosphatase 167 H, Lipase 255 Assessment and Plan - Plan Assessment Chest pain, dyspnea, tachypnea Cirrhosis of liver secondary to ANAYA Anemia chronic disease Thrombocytopenia Plan Chest pain, dyspnea, tachypnea: Unknown etiology, CT PE protocol negative, chest x-ray unremarkable, initial troponin negative, EKG without acute changes. Patient history of chronic pancreatitis, possible pancreatitis findings on CT but similar to previous, lipase within normal limits. Patient not having any expiratory wheezing at this time, will need to rule out ACS. Patient thrombocytopenia will continue with SCDs for DVT prophylaxis. Cardiology consulted. Patient declined any medication for anxiety to see if this is attributing to the tachypnea/tachycardia stating that she does not feel anxious. Cirrhosis of liver secondary to ANAYA: Stable, patient follows hepatology on outpatient basis. Anemia chronic disease: Stable similar to previous labs. Transfuse for hemoglobin less than 7. Thrombocytopenia : Platelet is 60, continue SCDs for DVT prophylaxis, daily labs. Discharge Plan: Home Plan to discharge in: 24 Hours - Advance Directives Does patient have a Living Will: No Does patient have a Durable POA for Healthcare: No - Code Status/Comfort Care Code Status Assessed: Yes (FC) Critical Care: No Time Spent Managing Pts Care (In Minutes): 55
[2020-07-22] MEDS ORDERED: ACETAMINOPHEN 500 MG TAB PO PRN (20:52)
[2020-07-22] MEDS ORDERED: ONDANSETRON 4 MG/2 ML VIAL IV PRN (20:52)
[2020-07-22] MEDS: HYDROCODONE/APAP 5/325 MG TAB PO PRN (22:23)
[2020-07-23] MEDS ORDERED: FENTANYL CITR 100 MCG/2 ML IV ONE (00:13)
[2020-07-23] MEDS: BENZONATATE 100 MG CAP PO PRN ×2 (00:28→08:35)
[2020-07-23 03:22] LABS: Urine Appearance CLEAR (Clear); Urine Blood NEGATIVE (Negative); Urine Color DK YELLOW (Yellow); Urine Glucose NEGATIVE (Negative); Urine Protein NEGATIVE (Negative); Urine Specific Gravity >=1.030 (1.005-1.030); Urine Urobilinogen 0.2 mg/dL (0.2-1.0); Urine pH 5.5 (5.0-7.0)
[2020-07-23 04:01] LABS: Urine Microscopic Reflex NO UMIC
[2020-07-23 04:02] LABS: Urine Bilirubin NEGATIVE (Negataive)
[2020-07-23 04:30] VITALS: BMI 44.1
[2020-07-23 04:55] LABS: Absolute Lymphocytes (CBC) 0.5 K/uL (0.7-4.9); Basophils % 0.6 % (0-1.3); Hematocrit 26.5 % (36.0-45.0); Lymphocytes % 20.4 % (15.3-44.8); RBC Red Blood Cell Count 3.35 M/uL (3.86-4.86)
[2020-07-23 05:10] LABS: Protime INR 1.3
[2020-07-23 05:24] LABS: ALT/SGPT 50 U/L (12-78); AST/SGOT 35 U/L (15-37); Albumin 2.8 g/dL (3.4-5.0); Alkaline Phosphatase 150 U/L (45-117); BUN Blood Urea Nitrogen 8 mg/dL (7-18); Bicarbonate 28 mmol/L (21-32); Bilirubin Total 1.4 mg/dL (0.2-1.0); Ferritin 8.5 ng/mL (8-388); Glucose Level 145 mg/dL (74-106); HDL Cholesterol 53 mg/dL (40-60); LDL Cholesterol, Calculated 90 (<130); Lipase 209 U/L (73-393); Potassium 3.9 mmol/L (3.5-5.1); Sodium Level 143 mmol/L (136-145); Transferrin 222 mg/dL (200-360); Troponin I < 0.02 ng/mL (0.0-0.045)
[2020-07-23 05:42] LABS: Blood Morphology Comment NOTED (NOT SEEN); Platelet Estimate DECR; White Blood Cell Scan OK (OK)
[2020-07-23] MEDS: HYDROCODONE/APAP 5/325 MG TAB PO PRN (08:35)
--- NOTE | 2020-07-23 08:43 | P.DS ---
Admission Date: 07/22/20 Discharge Date: 07/23/20 Primary Care Provider: Dr. Albarado; Liver-Dr. Mayer Disposition: ROUTINE DISCHARGE Discharge Condition: GOOD Reason for Admission: CP, SOB Consultations: Cardiology-Dr. Crenshaw Procedures: COVID: Negative CXR: FINDINGS: Exam is limited by portable technique, large body habitus and shallow inspiration. No dense consolidation. Generally, interstitial opacification is not substantially different. There is a vague or subtle increase in opacification in the right upper lung field. Likelihood of new right upper lobe pneumonia is low but not excluded. This can be monitored on subsequent imaging. Heart and vasculature are normal. No measurable pleural effusion and no pneumothorax. No acute bony abnormality seen. No acute aortic findings suspected. IMPRESSION: Limited study not substantially different from July 16 imaging. Vague or subtle increased opacification right upper lobe is probably not a true infiltrate but can be monitored on subsequent imaging. Venous Doppler: FINDINGS: Normal compressibility, flow augmentation, phasic flow and spontaneous flow are identified in the left and right lower extremity common femoral, superficial femoral, popliteal and posterior tibial veins. No intraluminal filling defects seen. IMPRESSION: No DVT in either lower extremity. CT scan: FINDINGS: Lungs are clear of mass and infiltrate. No pleural effusion, pleural thickening or pneumothorax. No significant aortic or pulmonary arterial tree finding. Mediastinal and hilar regions show no mass or abnormal lymphadenopathy. No chest wall mass or axillary lymphadenopathy. Right breast lumpectomy changes are evident. Enlarged liver is seen with prominent lobular capsule contour. No focal liver lesion identifiable. Spleen is prominent without focal lesion. Numerous varices are seen in the upper abdomen. Gallbladder is absent. No biliary tree dilatation. No mass of the pancreatic parenchyma. Trace amount of stranding seen in the peripancreatic head and body region. Findings are less prominent than seen on the May comparison study. Symmetric renal function is seen with no mass or hydronephrosis. No adrenal abnormalities. Urinary bladder is tightly contracted. Uterus is absent. Ovaries are absent or atrophic. No adnexal mass. Soft tissues of the perineum are slightly asymmetric. CT assessment is limited in this region. No dilated bowel loops or focal bowel wall thickening. There is fecalized bowel content in several small bowel loops. This could indicate an overall bowel stasis an enteritis. Stranding is seen in the mesenteric fat. No acute or destructive bony process. Degenerative changes are present. No significant vascular findings. IMPRESSION: CT chest imaging shows no acute or emergent finding. Advanced cirrhotic liver changes are present with no focal liver lesion identifiable. No ascites. Trace amount of stranding in the peripancreatic fat could represent very minimal pancreatitis if there are supporting clinical or laboratory findings. This is potentially remnant from the mild pancreatitis changes seen May 2020. No acute or emergent bowel finding. There are several loops of small bowel showing fecalized bowel content. This can indicated bowel stasis and possible enteritis. 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 Patient reports that she was at work sitting in her chair when she had sudden onset of shortness of breath along with epigastric/chest pain. Patient presented to the emergency department for evaluation, labs significant for changes similar to her previous with chronic anemia hemoglobin 9.2 hematocrit 29.0, MCV 70.9 platelets 60, INR 1.16 AST 46 ALT 55, t bili 1.6 d bili 0.5, alk 167 ammonia 34 initial troponin 0.02 D-dimer elevated 1486 CT PE protocol negative for any acute findings, DVT study negative bilaterally. Patient still tachypneic, mildly tachycardic and having some discomfort, ED provider wishes to admit for further evaluation and management. Allergies morphine Allergy (Severe, Verified 11/19/19 13:14) Anaphylaxis Home Medications: Lactulose 15 ml PO BID 10/22/19 Furosemide 20 mg PO DAILY 05/23/20 Spironolactone 25 mg PO DAILY 05/23/20 Hydrocodone 10/APAP 325 [North 10/325] 1 tab PO Q6H PRN #40 tab 05/24/20 LORazepam [Ativan*] 0.5 mg PO DAILY PRN #30 tab 05/24/20 Lipase/Protease/Amylase [Remy Taylor 12,000 Units Capsule] 1 each PO TID #90 regan. 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 moist/pink Neck: Supple, 2+ carotid pulse no bruit, No LAD Respiratory: Clear to auscultation bilaterally, Normal air movement Cardiovascular: Regular rate/rhythm, Normal S1 S2 Gastrointestinal: Normal bowel sounds, No tenderness Musculoskeletal: No tenderness Integumentary: No rashes Neurological: Normal speech, Normal strength at 5/5 x4 extr, Normal tone, Normal affect - Studies Laboratory Data (last 24 hrs) 07/22/20 16:15: PT 13.4 H, INR 1.16 07/22/20 16:15: Magnesium 2.2 D 07/22/20 16:15: WBC 3.40 L, Hgb 9.2 L, Hct 29.0 L, Plt Count 60 L 07/22/20 16:15: Sodium 142, Potassium 4.0, BUN 8, Creatinine 0.51 L, Glucose 112 H, Total Bilirubin 1.6 H, AST 46 H, ALT 55, Alkaline Phosphatase 167 H, Lipase 255 Assessment and Plan - Plan - Advance Directives Does patient have a Living Will: No Does patient have a Durable POA for Healthcare: No - Code Status/Comfort Care Code Status Assessed: Yes (FC) Critical Care: No Time Spent Managing Pts Care (In Minutes): 55 Hospital Course: Presented with chest pain and shortness of breath. Patient was admitted for further evaluation. CT PE protocol negative for pulmonary embolism. Chest x- ray unremarkable. EKG showed no significant abnormalities. Patient blood pressure was elevated upon admission. Patient seen and evaluated by cardiology. Cardiology suspects bronchitis versus pleurisy. No need for further work-up at this time. Cardiology recommends to treat pleurisy/bronchitis. At discharge patient will continue with prednisone 10 mg daily for the next 7 days, Augmentin 500 mg twice daily for 7 days and Albuterol 2 puffs twice daily as needed for shortness of breath. For her hypertension the patient will be started on metoprolol 12.5 mg 1 pill twice daily. May need to hold if blood pressure systolic less than 110 or heart rate less than 60. Recommend to monitor blood pressure daily. Recommend to maintain blood pressure less than 130/80. Patient will follow up with cardiology within 1 to 2 weeks to follow-up hospitalization. Patient will have outpatient echocardiogram and Holter monitor with cardiology to further address. Patient with liver cirrhosis secondary to Yusuf. She also has anemia of chronic disease with chronic thrombocytopenia related to liver cirrhosis. She is seen by specialty carehepatology in [place]. This appears stable at this time. No intervention needed. The patient will continue with her home medications of lactulose twice daily, Lasix 20 mg daily, and Aldactone 25 mg daily. Patient with chronic pancreatitis. At discharge no significant pain noted. She will continue to follow-up with GI as directed. Patient will continue with current medication Creon. Vital Signs/Physical Exam: Temp Pulse Resp BP Pulse Ox 96.9 F 90 18 118/80 96 07/23/20 04:00 07/23/20 04:00 07/23/20 04:00 07/23/20 04:00 07/23/20 04:00 General: Alert, In no apparent distress, Oriented x3, Cooperative HEENT: Atraumatic Neck: Supple Respiratory: Clear to auscultation bilaterally, Normal air movement Cardiovascular: Normal pulses, Regular rate/rhythm Gastrointestinal: Normal bowel sounds, Soft and benign, Non-distended, No tenderness, No masses, No rebound, No guarding Musculoskeletal: No erythema, No tenderness, No warmth Integumentary: No tenderness/swelling Neurological: Normal speech, Normal strength at 5/5 x4 extr, Normal tone, Normal affect Laboratory Data at Discharge: WBC 2.50 K/uL (4.3-10.9) L D 07/23/20 04:35 Hgb 8.2 g/dL (12.0-15.0) L 07/23/20 04:35 Hct 26.5 % (36.0-45.0) L 07/23/20 04:35 Plt Count 49 K/uL (152-406) L* 07/23/20 04:35 PT 15.0 SECONDS (9.5-12.5) H 07/23/20 04:35 INR 1.30 07/23/20 04:35 Sodium 143 mmol/L (136-145) 07/23/20 04:35 Potassium 3.9 mmol/L (3.5-5.1) 07/23/20 04:35 BUN 8 mg/dL (7-18) 07/23/20 04:35 Creatinine 0.50 mg/dL (0.55-1.3) L 07/23/20 04:35 Glucose 145 mg/dL (74-106) H 07/23/20 04:35 Magnesium 2.0 mg/dL (1.8-2.4) 07/23/20 04:35 Total Bilirubin 1.4 mg/dL (0.2-1.0) H 07/23/20 04:35 AST 35 U/L (15-37) 07/23/20 04:35 ALT 50 U/L (12-78) 07/23/20 04:35 Alkaline Phosphatase 150 U/L (45-117) H 07/23/20 04:35 Troponin I < 0.02 ng/mL (0.0-0.045) 07/23/20 04:35 Triglycerides 76 mg/dL (<150) 07/23/20 04:35 Cholesterol 158 mg/dL (<200) 07/23/20 04:35 HDL Cholesterol 53 mg/dL (40-60) 07/23/20 04:35 Cholesterol/HDL Ratio 2.98 07/23/20 04:35 Lipase 209 U/L (73-393) 07/23/20 04:35 Home Medications: Lactulose 15 ml PO BID PRN 10/22/19 Furosemide 20 mg PO DAILY 05/23/20 Spironolactone 25 mg PO DAILY 05/23/20 Albuterol Inhaler [Ventolin Inhaler*] 2 puff IH TID PRN #1 hfa.aer.ad 07/23/20 Amox/Clavulanate [Augmentin 500-125 mg Tab] 500 mg PO BID #14 tab 07/23/20 Lipase/Protease/Amylase [Creon Dr 12,000 Units Capsule] 12,000 units PO DAILY 07/23/20 Metoprolol Tartrate 12.5 mg PO BID #30 tablet 07/23/20 predniSONE [Deltasone*] 10 mg PO DAILY #7 tab 07/23/20 New Medications: Amox/Clavulanate [Augmentin 500-125 mg Tab] 500 mg PO BID #14 tab predniSONE [Deltasone*] 10 mg PO DAILY #7 tab Metoprolol Tartrate 12.5 mg PO BID #30 tablet Albuterol Inhaler [Ventolin Inhaler*] 2 puff IH TID PRN #1 hfa.aer.ad PRN Reason: Shortness Of Breath Physician Discharge Instructions: Presented with chest pain and shortness of breath. Patient was admitted for further evaluation. CT PE protocol negative for pulmonary embolism. Chest x- ray unremarkable. EKG showed no significant abnormalities. Patient blood pressure was elevated upon admission. Patient seen and evaluated by cardiology. Cardiology suspects bronchitis versus pleurisy. No need for further work-up at this time. Cardiology recommends to treat pleurisy/bronchitis. At discharge patient will continue with prednisone 10 mg daily for the next 7 days, Augmentin 500 mg twice daily for 7 days and Albuterol 2 puffs twice daily as needed for shortness of breath. For her hypertension the patient will be started on metoprolol 12.5 mg 1 pill twice daily. May need to hold if blood pressure systolic less than 110 or heart rate less than 60. Recommend to monitor blood pressure daily. Recommend to maintain blood pressure less than 130/80. Patient will follow up with cardiology within 1 to 2 weeks to follow-up hospitalization. Patient will have outpatient echocardiogram and Holter monitor with cardiology to further address. Patient with liver cirrhosis secondary to Yusuf. She also has anemia of chronic disease with chronic thrombocytopenia related to liver cirrhosis. She is seen by specialty carehepatology in [place]. This appears stable at this time. No intervention needed. The patient will continue with her home medications of lactulose twice daily, Lasix 20 mg daily, and Aldactone 25 mg daily. Patient with chronic pancreatitis. At discharge no significant pain noted. She will continue to follow-up with GI as directed. Patient will continue with current medication Creon. Diet: AHA Activity: Ad lencho Followup: Madhu Albarado MD [Primary Care Provider] - Time spent managing pt's care (in minutes): 55
[2020-07-23 08:51] VITALS: O2SAT 95
[2020-07-23] MEDS ORDERED: POTASSIUM CL SA 10 MEQ TAB PO ONE (09:00)
[2020-07-23 09:15] VITALS: BP 121/62; TEMP 98.4
--- NOTE | 2020-07-24 07:41 | EKG ---
Test Date: 2020-07-22 Test Time: 15:23:09 Heel Top Lift Splitter: MICKEY MEASUREMENT RESULTS: Intervals: Rate: 93 CA: 136 QRSD: 122 QT: 490 QTc: 609 [place]: P: 51 CA: 136 QRS: 83 T: 37 INTERPRETIVE STATEMENTS: Sinus rhythm with premature atrial complexes Right bundle branch block Abnormal ECG Compared to ECG 05/23/2020 02:13:57 Atrial premature complex(es) now present Right bundle-branch block now present Prolonged QT interval no longer present Electronically Signed On 07-24-20 07:35:14 CDT by Miguel Crenshaw
--- NOTE | 2020-07-26 12:49 | CON ---
Date of Consultation: 07/23/2020 Reason For Consultation: Palpitations, cough, shortness of breath. History Of Present Illness: Ms. Goss is 60, has a history of chronic back pain, COPD, anxiety, hy pertension, anemia, breast cancer, cirrhosis, pancreatitis, venous insufficiency. She came in with t achycardia that was not atrial fibrillation was sinus tach. Denied any chest pain. Denied any nause a, vomiting, diaphoresis, PND, orthopnea, pedal edema, or syncope. Denied any fever or chills. Past Medical History: As stated above. Allergies: MORPHINE AND HYDROMORPHONE. Review of Systems: Negative. Social History: Negative. Family History: Noncontributory. Physical Examination: Vital Signs: Stable, afebrile. HEENT: Negative. Neck: Supple. No bruit. Chest: Clear. Cardiac: Regular rhythm and rate, S4 gallops. No murmurs or rubs. Abdomen: Benign. Extremities: No clubbing, cyanosis, or edema. Diagnostic Data: EKG showed right bundle-branch block. D-dimer was [address] angiogra m for pulmonary embolus. Hemoglobin was 9.2. Impression And Plan: Tachycardia secondary to bronchitis. I think she needs to be on inhalers, anti biotic. She is already on those, she is on Lovenox. I would resume her home medication which does i nclude metoprolol. We can certainly go up on the dose if we have to. I think she needs to have an e chocardiogram in the near future. Her other problems including anxiety, anemia, hypertension, breast cancer, cirrhosis, pancreatitis and varices appeared to be stable at this point. I agree with her p resent regimen she can go home whenever it is okay with Dr. Roberts. I will be happy to see her in th e office in the next week or 2. SHERRI/LIBORIOL Voice ID: [id number] Report ID: [id number]
== END 2020-07-23 10:59 | disposition home or self-care (01) ==
LOC: ER 15:04 → ERHOLD 20:09 → 2ND 20:27
PROVIDERS: ADMIT Family Medicine; ATTEND Family Medicine
DX: J40 Bronchitis, not specified as acute or chronic (principal); R07.9 Chest pain, unspecified; K74.60 Unspecified cirrhosis of liver; K75.81 Nonalcoholic steatohepatitis (NASH); D63.8 Anemia in other chronic diseases classified elsewhere; D69.6 Thrombocytopenia, unspecified; Z20.822 Contact with and (suspected) exposure to COVID-19; J44.0 Chronic obstructive pulmonary disease with (acute) lower respiratory infection; M54.9 Dorsalgia, unspecified; G89.29 Other chronic pain; F41.9 Anxiety disorder, unspecified; Z85.3 Personal history of malignant neoplasm of breast; I87.2 Venous insufficiency (chronic) (peripheral); R94.31 Abnormal electrocardiogram [ECG] [EKG]; E66.9 Obesity, unspecified; Z68.41 Body mass index [BMI] 40.0-44.9, adult; I10 Essential (primary) hypertension; K86.1 Other chronic pancreatitis
CPT/HCPCS: 93005; 85025 ×2; 80048; 36415; 82140; 83735 ×2; 85610 ×2; 80061; 85379; 80076; 84443; 81003; 84484 ×3; 84439; 82728; 83690 ×2; 83540; 80053; 83880; 84466; 71260; 74177; 71045; 93970; 96372; 96374; 99285; U0003; Q9967; C9113; J3010; J1650; J2405; G0378

== ENCOUNTER 2020-08-31 08:14 | Emergency (ER) | payer OTHER ==
--- OUTSIDE RECORDS SUMMARY | 2020-08-31 08:19 | XMS REPORT | Continuity of Care Document ---
:1960 Author Organization [facility] t Address [address] [place] [address] Care Team Providers Name Role Phone Usman [...] Effective Date Expiration Date Sour ce Number [facility] [id number] 2019 [place] CHOICE 00:00:00 [facility] EXCHANGECOM [facility] EXCHANGE MARKETPLACExxxxxx [id number]-Pr esentExchange Problems Condition Condition Condition Status Onset [...] st 00 Acute Acute Disease Active 2019-04 [place] pancreatit pancreatit 2-04 Me thodi is without is without 00:00: st infection infection 00 or or necrosis necrosis Other Other Disease Active [facility] cirrhosis 6-22 [facility] - of liver of liver 00:00: Medica l 00 Center Increased Increased Disease Active [facility]22 [facility] level level 00:00: Medical 00 [place] Epigastric Epigastric Disease Active C HI [facility] [...] Date Stop Date Quantity Comments [facility] Alcohol Binge Tobacco use and 2020-06-24 2020-06-24 Never used Nishant Mittal ethodist exposure 00:00:00 00:00:00 Alcohol intake 2020-06-24 2020-06-24 Lifetime Nishant Queen thodist 00:00:00 00:00:00 non-drinker (finding) History SDIN 2020-03-19 2020-03-19 1 [place] Meth odist Alcohol Frequency 00:00:00 00:00:00 Sex [birth year] Nishant Mittal ethodist 00:00:00 00:00:00 Smoking Status Start Date Stop Date Source Never smoker [place] Method[facility] t Medications Ordered Filled Start Stop [...] 10:24: daily. st 51 pancrelipas Yes 1{capsu [id number] Take 1 Dillard e, 3-14 le} [id number] capsule by Met racheli lipase-prot 10:24: 3D [...] for 30 days. pancrelipas 2019-04- No 1{capsu [id number] Take 1 Dillard e, 2-13 -12 le} [id number] capsule by [place] hussein lipase-prot 00:00: 23:59 3D mouth 3 [...] Lactulose Yes Gm not [facility] [...] Source Systolic blood 2020-06-22 07:27:51 106 mm[Hg] Chellyto n [facility] pressure Diastolic blood 2020-06-22 07:27:51 48 mm[Hg] Chellyt on [facility] pressure Heart rate 2020-06-22 07:27:51 67 /min Nishant Chaidez Body temperature 2020-06-22 07:27:51 36.22 Sandee [place] [facility] [place] Respiratory rate 2020-06-22 07:27:51 19 /min [place] [place] Oxygen saturation in 2020-06-22 07:27:51 95 /min Nishant Chaidez Arterial blood by Pulse oximetry Body weight 2020-06-22 04:20:21 117.708 kg Nishant Chaidez BMI 2020-06-22 04:20:21 44.54 kg/m2 Nishant Chaidez Body height 2020-06-09 11:50:00 162.6 cm Nishant Chaidez Procedures Procedure Date / Time Performing Clinician Source Performed HC COMPLETE BLD COUNT 2020-06-22 04:30:00 Viktor Cruz [facility] W/AUTO DIFF COMPREHENSIVE METABOLIC 2020-06-22 04:30:00 Viktor Cruz [facility] PANEL PROTHROMBIN TIME WITH INR 2020-06-22 04:30:00 Viktor Cruz [facility] ESTIMATED GFR 2020-06-22 04:30:00 Viktor Cruz Meth odist SMEAR REVIEW 2020-06-22 04:30:[address] ANGIOGRAM PE CHEST 2020-06-21 11:23:44 Viktor Cruz [facility] HC COMPLETE BLD COUNT 2020-06-21 05:45:00 Viktor Cruz [facility] W/AUTO DIFF PROTHROMBIN TIME WITH INR 2020-06-21 05:45:00 Viktor Cruz [facility] B NATRIURETIC PEPTIDE 2020-06-21 05:45:00 Ofelia Daniels [facility] SMEAR REVIEW 2020-06-21 05:45:00 Viktor Cruz Meth odist COMPREHENSIVE METABOLIC 2020-06-21 04:00:00 Viktor Cruz [facility] PANEL ESTIMATED GFR 2020-06-21 04:00:00 Viktor Cruz Meth odist LIPASE LEVEL 2020-06-21 04:00:00 Viktor Cruz odnohelia XR CHEST 1 VW PORTABLE 2020-06-21 01:18:40 Ofelia Daniels [facility] ECG 12-LEAD 2020-06-20 22:50:00 Gilson Floydantonieta Chaidez HC COMPLETE BLD COUNT 2020-06-20 22:30:00 Ofelia Daniels [facility] [place] W/AUTO DIFF BASIC METABOLIC PANEL 2020-06-20 22:30:00 Ofelia Daniels [facility] ESTIMATED GFR 2020-06-20 22:30:00 Ofelia Daniels M ethodist MAGNESIUM LEVEL 2020-06-20 22:30:00 Ofelia Daniels Dillard M ethodist PHOSPHORUS LEVEL 2020-06-20 22:30:00 Ofelia Daniels CREATINE KINASE, TOTAL 2020-06-20 21:56:00 Viktor Cruz on [facility] (CPK) TROPONIN 2020-06-20 21:53:00 Viktor Cruz odnohelia POC GLUCOSE 2020-06-20 21:48:00 Viktor Cruz odnohelia SURGICAL PATHOLOGY 2020-06-20 14:38:00 Viktor Cruz ethodist REQUEST SURGICAL PATHOLOGY 2020-06-20 13:38:00 Viktor Cruz ethodist REQUEST US UPPER GI TRACT, 2020-06-20 13:35:00 Carolin Sanches ethodist ENDOSCOPIC HC COMPLETE BLD COUNT 2020-06-20 05:50:00 Viktor Cruz n [facility] W/AUTO DIFF PROTHROMBIN TIME WITH INR 2020-06-20 05:50:00 Viktor Cruz [facility] COMPREHENSIVE METABOLIC 2020-06-20 05:50:00 Viktor Cruz [facility] PANEL MAGNESIUM LEVEL 2020-06-20 05:50:00 Viktor Cruz odnohelia PHOSPHORUS LEVEL 2020-06-20 05:50:00 Viktor Cruz hodist ESTIMATED GFR 2020-06-20 05:50:00 Viktor Cruz odnohelia SMEAR REVIEW 2020-06-20 05:50:00 Viktor Cruz odnohelia COVID-19 QUALITATIVE PCR 2020-06-19 14:52:00 VerónicaRayog KyrieJason hopkins [facility] COMPREHENSIVE METABOLIC 2020-06-19 05:30:00 Nancy Viktor muñiz [facility] PANEL HC COMPLETE BLD COUNT 2020-06-19 05:30:00 Nancy Viktor Rishabh jefferson [facility] W/AUTO DIFF PROTHROMBIN TIME WITH INR 2020-06-19 05:30:00 NancyViktor Aurelio wilburn [facility] ESTIMATED GFR 2020-06-19 05:30:00 Viktor Cruz Meth odist SMEAR REVIEW 2020-06-19 05:30:00 NancyViktor Meth odnohelia HC COMPLETE BLD COUNT 2020-06-18 02:56:00 NancyVigneshViktor Rishabh jefferson [facility] W/AUTO DIFF BASIC METABOLIC PANEL 2020-06-18 02:56:00 Tripp Cruzg Rishabh jefferson [facility] PROTHROMBIN TIME WITH INR 2020-06-18 02:56:00 NancyVigneshViktor Aurelio wilburn [facility] ESTIMATED GFR 2020-06-18 02:56:00 NancyViktor Dillard Meth odist SMEAR REVIEW 2020-06-18 02:56:[address] ABDOMEN W WO CONTRAST 2020-06-17 11:36:28 Myra Quinn [facility] HC COMPLETE BLD COUNT 2020-06-17 06:22:00 Meek Suresh W/AUTO DIFF BASIC METABOLIC PANEL 2020-06-17 06:22:00 Meek Suresh HEPATIC FUNCTION PANEL 2020-06-17 06:22:00 Sharonda Suresh PROTHROMBIN TIME WITH INR 2020-06-17 06:22:00 Dipak Suresh MAGNESIUM LEVEL 2020-06-17 06:22:00 Meek Suresh [facility] ESTIMATED GFR 2020-06-17 06:22:00 Meek Suresh on [facility] SMEAR REVIEW 2020-06-17 06:22:00 Meek Suresh on [facility] NM GASTRIC EMPTYING 2020-06-16 14:21:01 Meek Suresh [facility] HC COMPLETE BLD COUNT 2020-06-16 04:25:00 Meek Suresh [facility] W/AUTO DIFF BASIC METABOLIC PANEL 2020-06-16 04:25:00 Meek Suresh [facility] HEPATIC FUNCTION PANEL 2020-06-16 04:25:00 Sharonda Suresh [facility] PROTHROMBIN TIME WITH INR 2020-06-16 04:25:00 Dipak Suresh [facility] MAGNESIUM LEVEL 2020-06-16 04:25:00 Meek Suresh on [facility] ESTIMATED GFR 2020-06-16 04:25:00 Meek Suresh on [facility] PHOSPHORUS LEVEL 2020-06-16 04:25:00 Meek Suresh [facility] SMEAR REVIEW 2020-06-16 04:25:00 Meek Suresh on [facility] HC COMPLETE BLD COUNT 2020-06-15 07:45:00 Meek Suresh [facility] W/AUTO DIFF SMEAR REVIEW 2020-06-15 07:45:00 Meek Suresh on [facility] CBC WITH PLATELET AND 2020-06-15 04:30:00 Meek Suresh DIFFERENTIAL BASIC METABOLIC PANEL 2020-06-15 04:30:00 Meek Suresh [facility] HEPATIC FUNCTION PANEL 2020-06-15 04:30:00 Sharonda Suresh [facility] PROTHROMBIN TIME WITH INR 2020-06-15 04:30:00 Dipak Suresh [facility] MAGNESIUM LEVEL 2020-06-15 04:30:00 Meek Suresh on [facility] ESTIMATED GFR 2020-06-15 04:30:00 Meek Suresh on [facility] [place] PHOSPHORUS LEVEL 2020-06-15 04:30:00 Meek Suresh [facility] HC COMPLETE BLD COUNT 2020-06-14 04:40:00 Meek Suresh [facility] W/AUTO DIFF BASIC METABOLIC PANEL 2020-06-14 04:40:00 Meek Suresh [facility] HEPATIC FUNCTION PANEL 2020-06-14 04:40:00 Sharonda Suresh [facility] PROTHROMBIN TIME WITH INR 2020-06-14 04:40:00 Dipak Suresh [facility] MAGNESIUM LEVEL 2020-06-14 04:40:00 Meek Suresh on [facility] [place] ESTIMATED GFR 2020-06-14 04:40:00 Meek Suresh on [facility] [place] PHOSPHORUS LEVEL 2020-06-14 04:40:00 Meek Suresh [facility] SMEAR REVIEW 2020-06-14 04:40:00 Meek Suresh on [facility] XR ABDOMEN 1 VW 2020-06-13 14:18:40 Meek Suresh on [facility] HC COMPLETE BLD COUNT 2020-06-13 04:39:00 Meek Suresh [facility] W/AUTO DIFF BASIC METABOLIC PANEL 2020-06-13 04:39:00 Meek Suresh [facility] HEPATIC FUNCTION PANEL 2020-06-13 04:39:00 Sharonda Suresh [facility] PROTHROMBIN TIME WITH INR 2020-06-13 04:39:00 Dipak Suresh [facility] MAGNESIUM LEVEL 2020-06-13 04:39:00 Meek Suresh on [facility] ESTIMATED GFR 2020-06-13 04:39:00 Meek Suresh on [facility] SMEAR REVIEW 2020-06-13 04:39:00 Meek Suresh on [facility] HC COMPLETE BLD COUNT 2020-06-12 06:19:00 Meek Suresh [facility] W/AUTO DIFF BASIC METABOLIC PANEL 2020-06-12 06:19:00 Meek Suresh [facility] HEPATIC FUNCTION PANEL 2020-06-12 06:19:00 Sharonda Suresh [facility] PROTHROMBIN TIME WITH INR 2020-06-12 06:19:00 Dipak Suresh [facility] MAGNESIUM LEVEL 2020-06-12 06:19:00 Meek Suresh on [facility] ESTIMATED GFR 2020-06-12 06:19:00 Meek Suresh on [facility] SMEAR REVIEW 2020-06-12 06:19:00 Meek Suresh on [facility] HC COMPLETE BLD COUNT 2020-06-11 04:25:00 Meek Suresh [facility] W/AUTO DIFF BASIC METABOLIC PANEL 2020-06-11 04:25:00 Meek Suresh [facility] HEPATIC FUNCTION PANEL 2020-06-11 04:25:00 Sharonda Suresh [facility] PROTHROMBIN TIME WITH INR 2020-06-11 04:25:00 Dipak Suresh [facility] MAGNESIUM LEVEL 2020-06-11 04:25:00 Meek Suresh on [facility] ESTIMATED GFR 2020-06-11 04:25:00 Meek Suresh on [facility] SMEAR REVIEW 2020-06-11 04:25:00 Meek Suresh on [facility] PROTHROMBIN TIME WITH INR 2020-06-10 05:15:00 Dipak Suresh [facility] HC COMPLETE BLD COUNT 2020-06-10 05:15:00 Meek Suresh [facility] W/AUTO DIFF COMPREHENSIVE METABOLIC 2020-06-10 05:15:00 Sina Suresh [facility] PANEL ESTIMATED GFR 2020-06-10 05:15:00 Meek Suresh on [facility] URINALYSIS SCREEN AND 2020-06-09 23:20:00 Meek Suresh [facility] MICROSCOPY, WITH REFLEX TO CULTURE URINE CULTURE 2020-06-09 23:20:00 Meek Suresh on [facility] CT ABDOMEN PELVIS W 2020-06-09 22:26:44 Jefferson Skelton [facility] CONTRAST BLOOD CULTURE, AEROBIC & 2020-06-09 21:35:00 Ricardo Suresh ANAEROBIC BLOOD CULTURE, AEROBIC & 2020-06-09 21:30:00 Ricardo Suresh ANAEROBIC COVID-19 QUALITATIVE PCR 2020-06-09 20:42:00 Ricardo Suresh HC COMPLETE BLD COUNT 2020-06-09 14:46:00 Zafar Zapien W/AUTO DIFF SMEAR REVIEW 2020-06-09 14:46:00 Zafar Zapien ethodist COMPREHENSIVE METABOLIC 2020-06-09 11:53:00 Zafar Zapien [facility] PANEL LIPASE LEVEL 2020-06-09 11:53:00 Zafar Zapien LACTIC ACID LEVEL, SEPSIS 2020-06-09 11:53:00 Zafar Zapien - NOW AND REPEAT 2X EVERY 3 HOURS ESTIMATED GFR 2020-06-09 11:53:00 Zafar Zapien ethodist BASIC METABOLIC PANEL 2020-03-22 05:15:00 DinhomarJeremy HC COMPLETE BLD COUNT 2020-03-22 05:15:00 Jeremy Bullock W/AUTO DIFF Deo MAGNESIUM LEVEL 2020-03-22 05:15:00 DinakarJeremy HEPATIC FUNCTION PANEL 2020-03-22 05:15:00 DinakarJeremy PHOSPHORUS LEVEL 2020-03-22 05:15:00 DinakarJeremy PROTHROMBIN TIME WITH INR 2020-03-22 05:15:00 DinJeremy hernandez LIPASE LEVEL 2020-03-22 05:15:00 DinhomarJeremy AMYLASE LEVEL 2020-03-22 05:15:00 DinhomarJeremy Deo ESTIMATED GFR 2020-03-22 05:15:00 DinhomarJeremyra SMEAR REVIEW 2020-03-22 05:15:00 DinakarJeremy odist Deo BASIC METABOLIC PANEL 2020-03-21 04:43:00 Dinakar, Jeremy Childersra CBC WITH PLATELET AND 2020-03-21 04:43:00 Dinakar, Jeremy jefferson [facility] DIFFERENTIAL Deo MAGNESIUM LEVEL 2020-03-21 04:43:00 Dinakar, Jeremy Tanner odist Deo HEPATIC FUNCTION PANEL 2020-03-21 04:43:00 Dinakar, Jeremy Baez on [facility] Deo PHOSPHORUS LEVEL 2020-03-21 04:43:00 Dinakar, Jeremy Desouza PROTHROMBIN TIME WITH INR 2020-03-21 04:43:00 Dinakar, Jeremy wilburn [facility] Deo LIPASE LEVEL 2020-03-21 04:43:00 Dinakar, Jeremy Childersra AMYLASE LEVEL 2020-03-21 04:43:00 Dinakar, Jeremy Childersra ESTIMATED GFR 2020-03-21 04:43:00 Dinakar, Jeremy Childersra MANUAL DIFFERENTIAL 2020-03-21 04:43:00 Dinakar, Jeremy Desouza BASIC METABOLIC PANEL 2020-03-20 05:20:00 Dinakar, Jeremy Desouza HC COMPLETE BLD COUNT 2020-03-20 05:20:00 Dinakar, Jeremy jefferson [facility] W/AUTO DIFF Deo MAGNESIUM LEVEL 2020-03-20 05:20:00 Dinakar, Jeremy Childersra HEPATIC FUNCTION PANEL 2020-03-20 05:20:00 Dinakar, Jeremy shelton [facility] Deo PHOSPHORUS LEVEL 2020-03-20 05:20:00 Dinakar, Jeremy Childersra PROTHROMBIN TIME WITH INR 2020-03-20 05:20:00 Dinakar, Jeremy wilburn [facility] Deo LIPASE LEVEL 2020-03-20 05:20:00 Dinakar, Jeremy Tanner odist Deo AMYLASE LEVEL 2020-03-20 05:20:00 Dinakar, Jeremy ayon Deo ESTIMATED GFR 2020-03-20 05:20:00 Dinakar, Jeremy Childersra SMEAR REVIEW 2020-03-20 05:20:00 Dinakar, Jeremy Childersra URINALYSIS, AUTOMATED 2020-03-19 12:52:00 Dinakar, Jeremy jefferson [facility] WITH MICROSCOPY Deo COVID-19 QUALITATIVE PCR 2020-03-19 11:58:00 Dinakar, Jeremy hopkins [facility] Deo BASIC METABOLIC PANEL 2020-03-19 11:55:00 Dinakar, Jeremy jefferson [facility] Deo HC COMPLETE BLD COUNT 2020-03-19 11:55:00 Dinakar, Jeremy jefferson [facility] W/AUTO DIFF Deo HEPATIC FUNCTION PANEL 2020-03-19 11:55:00 Dinakar, Jeremy Baez on [facility] Deo MAGNESIUM LEVEL 2020-03-19 11:55:00 Dinakar, Jeremy Dillard Meth odist Deo PHOSPHORUS LEVEL 2020-03-19 11:55:00 Dinakar, Jeremy Dillard Met hodist Deo PROTHROMBIN TIME WITH INR 2020-03-19 11:55:00 Dinakar, Jeremy wilburn [facility] Deo AMYLASE LEVEL 2020-03-19 11:55:00 Dinakar, Jeremy Tanner odist Deo LIPASE LEVEL 2020-03-19 11:55:00 Dinakar, Jeremy Tanner odist Deo ESTIMATED GFR 2020-03-19 11:55:00 Dinakar, Jeremy Dillard Meth odist Deo SMEAR REVIEW 2020-03-19 11:55:00 Dinakar, Jeremy Dillard Meth odist Deo BASIC METABOLIC PANEL 2020-03-18 04:18:00 Dinakar, Jeremy jefferson [facility] Deo HC COMPLETE BLD COUNT 2020-03-18 04:18:00 Dinakar, Jeremy jefferson [facility] W/AUTO DIFF Deo MAGNESIUM LEVEL 2020-03-18 04:18:00 Dinakar, Jeremy Dillard Meth odist Deo HEPATIC FUNCTION PANEL 2020-03-18 04:18:00 Dinakar, Jeremy Baez on [facility] Deo PHOSPHORUS LEVEL 2020-03-18 04:18:00 Dinakar, Jeremy Dillard Met hodist Deo PROTHROMBIN TIME WITH INR 2020-03-18 04:18:00 Dinakar, Jeremy wilburn [facility] Deo LIPASE LEVEL 2020-03-18 04:18:00 Dinakar, Jeremy Dillard Meth odist Deo AMYLASE LEVEL 2020-03-18 04:18:00 Jeremy Bullock Meth odist Deo ALPHA FETOPROTEIN 2020-03-18 04:18:00 Myra Quinn [facility] ESTIMATED GFR 2020-03-18 04:18:00 Myra Quinn Me thodist SMEAR REVIEW 2020-03-18 04:18:00 Myra Quinn Me thodist CBC WITH PLATELET AND 2020-03-17 04:15:00 Viktor Cruz [facility] DIFFERENTIAL COMPREHENSIVE METABOLIC 2020-03-17 04:15:00 Viktor Cruz [facility] PANEL MAGNESIUM LEVEL 2020-03-17 04:15:00 NancyViktor Dillard Meth odist PHOSPHORUS LEVEL 2020-03-17 04:15:00 NancyViktor Nishant Met hodist PROTHROMBIN TIME WITH INR 2020-03-17 04:15:00 Viktor [place] [facility] URIC ACID LEVEL 2020-03-17 04:15:00 NancyViktor Nishant Meth odist LDH 2020-03-17 04:15:00 Nancy Viktor Nishant Meth odist ESTIMATED GFR 2020-03-17 04:15:00 NancyVigneshViktor Dillard Meth odist SMEAR REVIEW 2020-03-17 04:15:00 Nancy Viktor Nishant Meth odist CBC WITH PLATELET AND 2020-03-16 04:32:00 Viktor Cruz [facility] DIFFERENTIAL COMPREHENSIVE METABOLIC 2020-03-16 04:32:00 Viktor Cruz [facility] PANEL MAGNESIUM LEVEL 2020-03-16 04:32:00 NancyViktor Dillard Meth odist PHOSPHORUS LEVEL 2020-03-16 04:32:00 Nancy Viktor Nishant Met hodist PROTHROMBIN TIME WITH INR 2020-03-16 04:32:00 Viktor Cruz [place] [facility] URIC ACID LEVEL 2020-03-16 04:32:00 NancyViktor Dillard Meth odist LDH 2020-03-16 04:32:00 NancyViktor Meth odist ESTIMATED GFR 2020-03-16 04:32:00 NancyViktor Dillard Meth odist SMEAR REVIEW 2020-03-16 04:32:00 NancyViktor Nishant Meth odist CBC WITH PLATELET AND 2020-03-15 04:45:00 Viktor Cruz [facility] DIFFERENTIAL PROTHROMBIN TIME WITH INR 2020-03-15 04:45:00 NancyViktor Aurelio wilburn [facility] HEMOGLOBIN A1C 2020-03-15 04:45:00 Viktor Cruz Meth odist SMEAR REVIEW 2020-03-15 04:45:00 Viktor Cruz Meth odist PHOSPHORUS LEVEL 2020-03-15 04:00:00 Viktor Cruz Met hodist THYROID STIMULATING 2020-03-15 04:00:00 NancyViktor [facility] HORMONE T4 2020-03-15 04:00:00 Viktor Cruz Meth odist URIC ACID LEVEL 2020-03-15 04:00:00 Viktor Cruz Meth odist LDH 2020-03-15 04:00:00 Viktor Cruz Meth odist ESTIMATED GFR 2020-03-15 04:00:00 Viktor Cruz odist BILIRUBIN DIRECT 2020-03-15 04:00:00 NancyViktor Met hodist COMPREHENSIVE METABOLIC 2020-03-15 04:00:00 NancyVigneshViktoranita muñiz [facility] PANEL MAGNESIUM LEVEL 2020-03-15 04:00:[address] od[address] CT ABDOMEN WWO CONTRAST 2020-03-14 21:04:21 Viktor Cruz [facility] PELVIS W CONTRAST COMPREHENSIVE METABOLIC 2020-03-14 17:20:00 NancyVigneshViktoranita muñiz [facility] PANEL HC COMPLETE BLD COUNT 2020-03-14 17:20:00 NancyVigneshViktoranita jefferson [facility] W/AUTO DIFF LIPASE LEVEL 2020-03-14 17:20:00 NancyViktor Meth odist MAGNESIUM LEVEL 2020-03-14 17:20:00 Viktor Cruz Meth odist PHOSPHORUS LEVEL 2020-03-14 17:20:00 NancyViktor Met hodist PROTHROMBIN TIME WITH INR 2020-03-14 17:20:00 NancyVigneshViktor Aurelio wilburn [facility] LACTIC ACID LEVEL 2020-03-14 17:20:00 Viktor Cruz Me thodist ESTIMATED GFR 2020-03-14 17:20:00 Viktor Cruz Meth odist SMEAR REVIEW 2020-03-14 17:20:00 NancyViktor Meth odist COVID-19 QUALITATIVE PCR 2020-03-14 16:30:00 Viktor Cruz [facility] Plan of Care Planned Activity Planned Date Details Comments Source Future Scheduled 2021-10-[address] [facility] (procedure) [code = Medical Center [id number]] Future Scheduled 2020-12-[address] [facility] - Test 00:00:00 (Season Ended) [code Medical Center = INFLUENZA VACCINE (Season Ended)] Future Scheduled 2020-11-09 INFLUENZA VACCINE [place] [facility] Test 00:00:00 [code = INFLUENZA VACCINE] Future Scheduled 2020-04-[address] [facility] - Test 00:00:00 (12+) [code = Medical Center DEPRESSION SCREENING (12+)] Future Scheduled 2011 SHINGLES VACCINES ([address] [facility] - Test 00:00:00 of 2) [code = Medical Center SHINGLES VACCINES (1 of 2)] Future Scheduled 2011 BREAST CANCER [facility] thodist Test 00:00:00 SCREENING [code = BREAST CANCER SCREENING] Future Scheduled 2011 COLONOSCOPY SCREENING [place] [facility] Test 00:00:00 [code = COLONOSCOPY SCREENING] Future Scheduled 2011 SHINGLES VACCINES [place] [facility] Test 00:00:00 (#1) [code = SHINGLES VACCINES (#1)] Future Scheduled [address] [facility] 00:[facility]:00 malignant neoplasm of [facility] Center cervix (procedure) [code = 726135764] Future Scheduled 1982 Screening for [facility] thodist Test 00:00:00 malignant neoplasm of cervix (procedure) [code = 289594872] Future Scheduled 1980 DTAP/TDAP/TD VACCINES [facility] 00:[facility]:00 (1 - Tdap) [code = Medical C enter DTAP/TDAP/TD VACCINES (1 - Tdap)] Future Scheduled 1979 HEPATITIS C [facility]00 [code = HEPATITIS C Medical Center SCREENING] Future Scheduled 1979 Hepatitis C screening [place] [facility] Test 00:00:00 (procedure) [code = 870638994] Future Scheduled 1973 COVID-19 VACCINE (1) Bárbara hopkins [facility] Test 00:00:00 [code = COVID-19 VACCINE (1)] Future Scheduled [address] [facility] 00:00:00 [facility] breast (procedure) [code = 047385349] Future Scheduled [address] [facility] - Test 00:00:00 malignant neoplasm of [facility] colon (procedure) [code = 042726117] Encounters Start End Encounter Admission Attending Care Care Encounter Source Date/Time Date/Time Type Type Clinicians Facility Department ID 2020-06-09 2020-06-22 Inpatient VIKTOR CRUZ [facility] [id number] [place] 00:00:00 00:00:00 836 Method i 2020-03-19 2020-03-23 Inpatient JAIME, [facility] [id number] [place] 00:00:00 00:00:00 JEREMY 742 Method i 2020-03-14 2020-03-18 Inpatient JAIME, [facility] [id number] [place] 00:00:00 00:00:00 JEREMY 157 Method i 2020-02-13 2020-02-13 Laboratory Lab, [facility] [id number] 10:22:10 10:42:10 Only Fam [facility] [id number] [place] [id number] Professio [id number] nal 0[address] One 2019-09-28 2019-09-28 [facility] [id number] 09:00[facility]00 09[facility]00[facility] 2019-09-18 2019-09-18 [facility] [id number] 09:30:00 09:30:00 [facility] 2019-08-14 2019-08-14 Transition Jocelyne Alexandra [id number] 00:00:00 00:00:00 of Care Jovanny [place]op[place] [id number] [place] [id number] 2019-08-10 2019-08-11 [facility] [id number] 02:55:00 16:09:00 Encounter Wes Amin [id number] [place] [id number] [place] [id number] Results Test Description Test Time Test Comments Results Result Comments Source ECG 12 lead 2020-06-22 19:46:03 Test Item Value Reference Range Interpretation Comme nts Ventricular rate (test code = 253) 78 Atrial rate (test code = 255) 78 LA interval (test code = 266) 152 QRSD [...] b ranch block-Abnormal ECG-No previous ECGs available- [place] [facility] [id number] 14:59:44 Test Item Value Reference Range Interpretation Comments Case number (test code = [id number]) Surgical pathology See link below for report (test code = PDF Lab Report [id number]) Result status (test code This is Final Report = [id number]) for [id number] [facility] Pe [id number] 11:33:47Hm Interface, Radiology Results Incoming - 06/21/2020 [...] characterized on recent CT scan of the abdomen.[id number] Chest 1 Vw [id number] 02:07:34Hm Interface, Radiology Results 06/21/2020 2:10 AM CST EXAMINATION: XR CHEST [...] abnormalities are visualized.[id number]_[id number] Abdomen W Wo [id number] 11:52:53Hm Interface, Radiology Results 06/17/2020 11:55 AM CSTFormatting of this note [...] be considered for further evaluation, if indicated clinically.[facility]-[id number] Gastric [id number] 14:38:06 Interface, Radiology Results 06/16/2020 2:41 PM CST PROCEDURE: NM GASTRIC EMPTYINGINDICATION: Epigastric pain. TECHNIQUE: 0.5millicuries of [id number] colloid were mixed with an egg and [...] Normal is <100 minutes. IMPRESSION: Normal gastric emptying.[facility]-2 [id number] and approved by vice president planning/fellow: Nickolas Whalen M.D.I, Russell Junior MD, personally reviewed the images and resident's/fellow's findings and agree with the final report.[facility]domen 1 Vw 2020-06-13 14:30:22Hm Interface, [...] unremarkable for age and lung bases appear clear.*[id number] MethodistUrine [id number] 01:05:20 Test Item Value Reference Range Interpretation Comments Urine culture (test SEE COMMENT Bacteriu bartolo screen code = [id number]) negative. [facility] Abdomen Pelvis W [id number] 22:41:44Hm Interface, Radiology Results 06/09/2020 10:44 PM CST Examination: CT ABDOMEN [...] WITHOUT ASCITES.3.OTHERWISE STABLE EXAM ABOVE WITHOUT ACUTE ABNORMALITY.[facility]-MPHYDWLHouston MethodistCT Abdomen WWO Contrast, Pelvis W [id number] 23:51:35Hm Interface, Radiology Results - 03/14/2020 11:54 [...] seen of right renal collecting system.[facility]-[id number] MethodistRAD, CHEST, 1 VIEW, NON [id number] 07:50:00Reason for exam:->SOBShould this be performed at the bedside?->Yes FINAL REPORT CLINICAL HISTORY: SOB TECHNIQUE: 1 view of the chest. COMPARISON: None IMPRESSION: There is pulmonary vascular congestion with prominent lung markings bilaterally. Subpulmonic pleural effusions cannot be excluded. The cardiomediastinal silhouette is magnified by technique. Signed: Franky Louis MDReport Verified Date/Time: 10/03/2018 07:50:47 Reading Location: [facility] [facility] Reading Room [id number] 07:37:00 Test Item Value Reference Range Interpretation Comments MAGNESIUM (BEAKER) (test code = 1.6 mg/dL 1.6-2.6 627) BASIC METABOLIC [id number] 07:37:00 Test Item Value Reference Range Interpretation [...] DIALYSIS PATIEN TS. Specimen slightly ictericHEPATIC FUNCTION [id number] 07:37:00 Test Item Value Reference Range Interpretation [...] 35 U/L 6-55 347) Specimen slightly ictericPROTHROMBIN [id number] 06:25:00 Test Item Value Reference Range Interpretation [...] mechanical heart valves.CBC W/PLT COUNT & AUTO [id number] 06:16:00 Test Item Value Reference Range Interpretation [...] = 3438) Received comment: User comments: Slide comments:[id number] 05:58:00 Test Item Value Reference Range Interpretation Comments MAGNESIUM (BEAKER) (test code = 1.6 mg/dL 1.6-2.6 627) BASIC METABOLIC [id number] 05:58:00 Test Item Value Reference Range Interpretation [...] DIALYSIS PATIEN TS. Specimen slightly ictericHEPATIC FUNCTION [id number] 05:58:00 Test Item Value Reference Range Interpretation [...] 39 U/L 6-55 347) Specimen slightly ictericPROTHROMBIN [id number] 05:26:00 Test Item Value Reference Range Interpretation [...] mechanical heart valves.CBC W/PLT COUNT & AUTO [id number] 05:20:00 Test Item Value Reference Range Interpretation [...] WBC 0-0 (test code = 413) VITAMIN [id number] 06:57:00 Test Item Value Reference Range Interpretation Comments VITAMIN B12 (BEAKER) (test code = 178 pg/mL 213-816 L 774) [id number] 06:57:00 Test Item Value Reference Range Interpretation Comments FERRITIN (BEAKER) (test code = 361) 21 ng/mL 5-275 FOLATE, [id number] 06:57:00 Test Item Value Reference Range Interpretation [...] 28 % 20-55 (test code = 2590) [id number] 05:59:00 Test Item Value Reference Range Interpretation Comments MAGNESIUM (BEAKER) (test code = 1.7 mg/dL 1.6-2.6 627) BASIC METABOLIC [id number] 05:59:00 Test Item Value Reference Range Interpretation [...] FOR DIALYSIS PATIEN TS. Specimen slightly ictericLIPID [id number] 05:59:00 Test Item Value Reference Range Interpretation [...] Very High >=190 Specimen slightly ictericHEPATIC FUNCTION [id number] 05:59:00 Test Item Value Reference Range Interpretation [...] = 41 U/L 6-55 347) Specimen slightly [id number] 05:59:00 Test Item Value Reference Range Interpretation Comments LIPASE (BEAKER) (test code = 749) 35 U/L 8-78 Specimen slightly ictericPROTHROMBIN [id number] 05:58:00 Test Item Value Reference Range Interpretation [...] mechanical heart valves.CBC W/PLT COUNT & AUTO [id number] 05:37:00 Test Item Value Reference Range Interpretation [...] 417) IMMATURE GRANULOCYTES-RELATIVE 0 % 0-1 PERCENT ([facility]) (test code = 2801) POCT-HEMOGLOBIN [id number] 06:12:00 Test Item Value Reference Range Interpretation Comments POC-HEMOGLOBIN METER 8.6 g/dL 12.0-15.0 L TESTED AT [facility] [address] ([facility]) (test code = [place] [address] 1539)
[2020-08-31 09:42] LABS: Urine Blood Trace-intact (Negative); Urine Glucose Negative (Negative); Urine Protein Negative (Negative); Urine Specific Gravity 1.025 (1.005-1.030)
[2020-08-31 09:56] LABS: Absolute Lymphocytes (CBC) 0.5 K/uL (0.7-4.9); Basophils % 0.7 % (0-1.3); Hematocrit 28.8 % (36.0-45.0); Lymphocytes % 21.2 % (15.3-44.8); MPV 8.1 fL (7.6-11.3); RBC Red Blood Cell Count 3.78 M/uL (3.86-4.86)
[2020-08-31] MEDS ORDERED: ONDANSETRON 4 MG/2 ML VIAL ONE (10:05)
[2020-08-31] MEDS ORDERED: FENTANYL CITR 100 MCG/2 ML ONE (10:05)
[2020-08-31 10:09] LABS: ALT/SGPT 42 U/L (12-78); AST/SGOT 39 U/L (15-37); Albumin 3.1 g/dL (3.4-5.0); Alkaline Phosphatase 170 U/L (45-117); BUN Blood Urea Nitrogen 9 mg/dL (7-18); Bicarbonate 26 mmol/L (21-32); Bilirubin Direct 0.6 mg/dL (0-0.2); Bilirubin Total 1.5 mg/dL (0.2-1.0); Glucose Level 116 mg/dL (74-106); Lipase 245 U/L (73-393); Potassium 3.7 mmol/L (3.5-5.1); Protein, Total 6.5 g/dL (6.4-8.2); Sodium Level 142 mmol/L (136-145)
[2020-08-31 10:32] LABS: Urine Bacteria <20 /HPF (<20); Urine RBC <5 /HPF (NONE SEEN)
--- NOTE | 2020-08-31 10:44 | RAD REPORT ---
EXAM DESCRIPTION: CT - Abdomen Pelvis W Contrast - 08/31/2020 10:05 am CLINICAL HISTORY: Abdominal pain COMPARISON: July 2012 TECHNIQUE: Computed axial tomography of the abdomen pelvis was obtained. 100 cc Isovue-300 was admin istered intravenously. Oral contrast was not requested which limits evaluation of bowel. All CT scans are performed using dose optimization technique as appropriate and may include automated exposure control or mA/KV adjustment according to patient size. FINDINGS: Cirrhotic liver distended portal vein. Abdominal varices. Spleen measures 19 centimeters. The pancreas, adrenals kidneys are unremarkable. No evidence of diverticulitis. Trace amount of ascites. Small umbilical hernia. IMPRESSION: Cirrhosis. No acute abnormality is displayed
--- NOTE | 2020-08-31 11:07 | EDPHYS ---
Physician Documentation [facility] Name: Zenaida oGss Age: 60 yrs Sex: Female : 1960 Arrival Date: 08/31/2020 Time: 08:17 Bed 20 Private MD: ED Physician Osmar Sutherland HPI: 08/31 09:30 This 60 yrs old Female presents to ER via Ambulatory with complaints of kb Abdominal Pain, Nausea. 09:30 The patient presents with abdominal pain in the upper abdomen. Onset: The kb symptoms/episode began/occurred 3 day(s) ago. The symptoms do not radiate. Associated signs and symptoms: Pertinent positives: nausea, Pertinent negatives: fever. The symptoms are described as constant. Modifying factors: The symptoms are alleviated by nothing, the symptoms are aggravated by nothing. Severity of pain: At its worst the pain was moderate in the emergency department the pain is unchanged. The patient has experienced similar episodes in the past, a few times. The patient has not recently seen a physician. Pt reports upper abd pain for 3 days. Has history of pancreatitis and this feels the same. Also reports low back pain for 1 day and cough for 1 month. States she had bronchitis a month ago and the cough never went away. Historical: - Allergies: 08:32 Dilaudid; hb 08:32 Morphine (Anaphylaxis); hb - Home Meds: 08:32 Creon Oral [Active]; hb - PMHx: 08:32 Anemia; breast cancer; Cirrhosis; fatty liver; Pancreatitis; varices; hb - PSHx: 08:32 Appendectomy; Cholecystectomy; Hysterectomy; Lumpectomy; hb - Immunization history:: Client reports receiving the 2nd dose of the Covid vaccine. - Social history:: Smoking status: Patient denies any tobacco usage or history of. ROS: 09:30 Constitutional: Negative for fever, chills, and weight loss. kb 09:30 Abdomen/GI: Positive for abdominal pain, nausea. 09:30 Back: Positive for pain at rest, of the low back area. 09:30 All other systems are negative. 09:30 Respiratory: Positive for cough. kb Exam: 09:32 Constitutional: This is a well developed, well nourished patient who is awake, alert, kb and in no acute distress. Head/Face: Normocephalic, atraumatic. ENT: Moist Mucous membranes Cardiovascular: Regular rate and rhythm with a normal S1 and S2. No gallops, murmurs, or rubs. No pulse deficits. Back: No spinal tenderness. No costovertebral tenderness. Full range of motion. Skin: Warm, dry with normal turgor. Normal color. MS/ Extremity: Pulses equal, no cyanosis. Neurovascular intact. Full, normal range of motion. Neuro: Awake and alert, GCS 15, oriented to person, place, time, and situation. Moves all extremities. Normal gait. Psych: Awake, alert, with orientation to person, place and time. Behavior, mood, and affect are within normal limits. 09:32 Respiratory: the patient does not display signs of respiratory distress, Respirations: normal, Breath sounds: are clear throughout. 09:32 Abdomen/GI: Inspection: obese Bowel sounds: normal, in all quadrants, Palpation: soft, in all quadrants, mild abdominal tenderness, in the left upper quadrant, right lower quadrant and left lower quadrant, moderate abdominal tenderness, in the epigastric area and right upper quadrant. Vital Signs: 08:30 BP 148 / 82; Pulse 68; Resp 16; Temp 98.2(TE); Pulse Ox 100% on R/A; Weight 115.67 kg; hb Height 5 ft. 4 in. (162.56 cm); Pain 10/10; 10:17 BP 121 / 58; Pulse 76; Resp 16; Pulse Ox 100% on R/A; vg1 08:30 Body Mass Index 43.77 (115.67 kg, 162.56 cm) hb MDM: 09:14 Patient medically screened. kb 09:30 Data reviewed: vital signs, nurses notes. Data interpreted: Pulse oximetry: on room air kb is 100 %. Interpretation: normal. 11:06 Counseling: I had a detailed discussion with the patient and/or guardian regarding: the kb historical points, exam findings, and any diagnostic results supporting the discharge/admit diagnosis, lab results, radiology results, the need for outpatient follow up, a biomedical specialist, to return to the emergency department if symptoms worsen or persist or if there are any questions or concerns that arise at home. 08/31 08:24 Order name: Basic Metabolic Panel; Complete Time: 10:09 la2 08/31 08:24 Order name: CBC with Diff [facility] 08/31 08:24 Order name: Hepatic Function; Complete Time: 10:09 la2 08/31 08:24 Order name: Lipase; Complete Time: 10:09 la2 08/31 09:09 Order name: Urine Microscopic Only; Complete Time: 10:32 kb 08/31 09:41 Order name: Urine Dipstick-Ancillary; Complete Time: 09:43 EDMS 08/31 08:24 Order name: IV Saline Lock; Complete Time: 09:44 la2 08/31 08:24 Order name: Labs collected and sent; Complete Time: 09:44 la2 08/31 09:09 Order name: Urine Dipstick-Ancillary (obtain specimen); Complete Time: 09:43 kb 08/31 09:26 Order name: Chest Single View XRAY; Complete Time: 11:21 kb 08/31 09:27 Order name: CT Abd/Pelvis - IV Contrast Only; Complete Time: 10:49 kb Administered Medications: 09:46 Drug: fentaNYL (PF) 50 mcg Route: IVP; Site: right antecubital; tr6 10:19 Follow up: Response: No adverse reaction; Pain is decreased; RASS: Alert and Calm (0) vg1 09:47 Drug: Zofran (Ondansetron) 4 mg Route: IVP; Site: right antecubital; tr6 10:19 Follow up: Response: No adverse reaction; Nausea is decreased vg1 Disposition: 08/31/20 11:06 Discharged to Home. Impression: Upper abdominal pain, unspecified, Unspecified cirrhosis of liver. - Condition is Stable. - Discharge Instructions: Abdominal Pain, Adult, [id number]. - Prescriptions for Bentyl 20 mg Oral Tablet - take 1 tablet by ORAL route every 6 hours As needed; 20 tablet. Zofran 4 mg Oral Tablet - take 1 tablet by ORAL route every 6 hours As needed; 20 tablet. - Medication Reconciliation Form, Thank You Letter, Antibiotic Education, Prescription Opioid Use form. - Follow up: Emergency Department; When: As needed; Reason: Worsening of condition. Follow up: Private Physician; When: 2 - 3 days; Reason: Recheck today's complaints, Continuance of care, Re-evaluation by your physician. Addendum: 09/04/2020 06:56 Co-signature as Attending Physician, Osmar Sutherland MD. m a2 Signatures: Dispatcher [employer] EDMS Valarie Wise, ENVIRONMENTAL HEALTH AND SAFETY LEADER-C ENVIRONMENTAL HEALTH AND SAFETY LEADER-Ckb June Souza, RN RN hb Osmar Sutherland MD MD ma2 Sarah Gao, RN RN vg1 Kenna Madsen, RN RN tr6 Corrections: (The following items were deleted from the chart) 08/31 11:06 11:06 08/31/2020 11:06 Discharged to Home. Impression: Upper abdominal pain, kb unspecified. Condition is Stable. Forms are Medication Reconciliation Form, Thank You Letter, Antibiotic Education, Prescription Opioid Use. Follow up: Emergency Department; When: As needed; Reason: Worsening of condition. Follow up: Private Physician; When: 2 - 3 days; Reason: Recheck today's complaints, Continuance of care, Re-evaluation by your physician. kb 11:22 11:06 08/31/2020 11:06 Discharged to Home. Impression: Upper abdominal pain, vg1 unspecified; Unspecified cirrhosis of liver. Condition is Stable. Forms are Medication Reconciliation Form, Thank You Letter, Antibiotic Education, Prescription Opioid Use. Follow up: Emergency Department; When: As needed; Reason: Worsening of condition. Follow up: Private Physician; When: 2 - 3 days; Reason: Recheck today's complaints, Continuance of care, Re-evaluation by your physician. kb
--- NOTE | 2020-08-31 11:07 | ER ---
Nurse's Notes [facility] Name: Zenaida Goss Age: 60 yrs Sex: Female : 1960 Arrival Date: 08/31/2020 Time: 08:17 Bed 20 Private MD: Diagnosis: Upper abdominal pain, unspecified;Unspecified cirrhosis of liver Presentation: 08/31 08:30 Chief complaint: Lower abdominal pain that radiates to back and nausea x 3 days. Also hb c/o nonproductive cough x 1 month. Coronavirus screen: At this time, the client does not indicate any symptoms associated with coronavirus-19. Ebola Screen: No symptoms or risks identified at this time. Initial Sepsis Screen: Does the patient meet any 2 criteria? No. Patient's initial sepsis screen is negative. Does the patient have a suspected source of infection? No. Patient's initial sepsis screen is negative. Risk Assessment: Do you want to hurt yourself or someone else? Patient reports no desire to harm self or others. Onset of symptoms was August 28, 2020. 08:30 Method Of Arrival: Ambulatory hb 08:30 Acuity: TANK 3 hb Historical: - Allergies: 08:32 Dilaudid; hb 08:32 Morphine (Anaphylaxis); hb - Home Meds: 08:32 Creon Oral [Active]; hb - PMHx: 08:32 Anemia; breast cancer; Cirrhosis; fatty liver; Pancreatitis; varices; hb - PSHx: 08:32 Appendectomy; Cholecystectomy; Hysterectomy; Lumpectomy; hb - Immunization history:: Client reports receiving the 2nd dose of the Covid vaccine. - Social history:: Smoking status: Patient denies any tobacco usage or history of. Screenin:21 Abuse screen: Denies threats or abuse. Nutritional screening: No deficits noted. vg1 Tuberculosis screening: No symptoms or risk factors identified. Fall Risk No fall in past 12 months (0 pts). No secondary diagnosis (0 pts). IV access (20 points). Ambulatory Aid- None/Bed Rest/Nurse Assist (0 pts). Gait- Normal/Bed Rest/Wheelchair (0 pts) Mental Status- Oriented to own ability (0 pts). Total Adames Fall Scale indicates No Risk (0-24 pts). Assessment: 10:10 General: Appears in no apparent distress. comfortable, Behavior is calm, cooperative. vg1 Pain: Complains of pain in epigastric area, posterior aspect of right lateral abdomen, posterior aspect of left lateral abdomen, right upper quadrant and left upper quadrant Pain currently is 7 out of 10 on a pain scale. Pain began Pt stated 'ABD pain began Tuesday and Back pain began yesterday'. Neuro: Level of Consciousness is awake, alert, obeys commands, Oriented to person, place, time, situation. Cardiovascular: Patient's skin is warm and dry. Respiratory: Airway is patent Respiratory effort is even, unlabored. GI: Bowel sounds present X 4 quads. Abdomen is tender to palpation in epigastric area, right upper quadrant and left upper quadrant. : No signs and/or symptoms were reported regarding the genitourinary system. EENT: No signs and/or symptoms were reported regarding the EENT system. Derm: Skin is intact, is healthy with good turgor. Musculoskeletal: Circulation, motion, and sensation intact. Vital Signs: 08:30 BP 148 / 82; Pulse 68; Resp 16; Temp 98.2(TE); Pulse Ox 100% on R/A; Weight 115.67 kg; hb Height 5 ft. 4 in. (162.56 cm); Pain 10/10; 10:17 BP 121 / 58; Pulse 76; Resp 16; Pulse Ox 100% on R/A; vg1 08:30 Body Mass Index 43.77 (115.67 kg, 162.56 cm) hb ED Course: 08:17 Patient arrived in ED. mr 08:31 Triage completed. hb 08:32 Arm band placed on. hb 09:14 Valarie Wise FNP-C [facility]. kb 09:14 Osmar Sutherland MD is Attending Physician. kb 09:14 June Souza, ERIC is Primary Nurse. hb 09:43 Urine Microscopic Only Sent. hb 09:52 Chest Single View XRAY In Process Unspecified. EDMS 10:04 CT Abd/Pelvis - IV Contrast Only In Process Unspecified. EDMS 10:18 Inserted saline lock: 22 gauge in left antecubital area, using aseptic technique. vg1 ,using aseptic technique. complete by ERIC Bain. 10:21 Patient has correct armband on for positive identification. Bed in low position. Call vg1 light in reach. Side rails up X 1. 11:21 No provider procedures requiring assistance completed. IV discontinued, intact, vg1 bleeding controlled, No redness/swelling at site. Pressure dressing applied. Administered Medications: 09:46 Drug: fentaNYL (PF) 50 mcg Route: IVP; Site: right antecubital; tr6 10:19 Follow up: Response: No adverse reaction; Pain is decreased; RASS: Alert and Calm (0) vg1 09:47 Drug: Zofran (Ondansetron) 4 mg Route: IVP; Site: right antecubital; tr6 10:19 Follow up: Response: No adverse reaction; Nausea is decreased vg1 Outcome: 11:06 Discharge ordered by . tate 11:21 Discharged to home ambulatory. vg1 11:21 Condition: stable 11:21 Discharge instructions given to patient, Instructed on discharge instructions, follow up and referral plans. medication usage, Demonstrated understanding of instructions, follow-up care, medications, Prescriptions given X 2. 11:22 Patient left the ED. vg1 Signatures: Dispatcher [employer] EDMS Valarie Wise, TY STERNP-Olivia Menjivar Heather, RN RN Sarah Porras, ERIC RN vg1 Kenna Madsen, RN RN tr6 Corrections: (The following items were deleted from the chart) 08:32 08:30 Chief complaint: Lower abdominal pain that radiates to back and nausea x 3 days. hb hb
--- NOTE | 2020-08-31 11:19 | RAD REPORT ---
EXAM DESCRIPTION: Igor Single View08/31/2020 9:53 am CLINICAL HISTORY: cough COMPARISON: July 2020 FINDINGS: Upper lobe vessels are prominent indicative of pulmonary venous hypertension Lungs appear clear Heart is mildly enlarged
[2020-08-31 11:28] VITALS: TEMP 98.2; O2SAT 100
[2020-08-31 11:29] VITALS: BP 121/58
[2020-08-31 11:35] LABS: Anisocytosis 1+; Blood Morphology Comment NOTED (NOT SEEN); Platelet Estimate DECR; White Blood Cell Scan OK (OK)
== END 2020-08-31 11:22 | disposition home or self-care (01) ==
LOC: ER 08:14
DX: K74.60 Unspecified cirrhosis of liver (principal); R05 Cough; Z85.3 Personal history of malignant neoplasm of breast; Z88.5 Allergy status to narcotic agent
CPT/HCPCS: 85025; 80048; 36415; 82565; 80076; 83690; 74177; 71045; Q9967; J3010; J2405; 81003; 81015; 96374; 96375; 99284

== ENCOUNTER 2020-09-27 01:15 | Emergency (ER) | payer OTHER ==
--- OUTSIDE RECORDS SUMMARY | 2020-09-27 01:21 | XMS REPORT | Continuity of Care Document ---
:[address] [facility] t Address [address] [place] [address] Care Team Providers Name Role Phone Usman Miranda Primary Care Physician Unavailable Mayda Thomas MD Attending Clinician Sylvia HENSLEY Attending Clinician Nancy HENSLEY Attending Clinician MD NANCY Attending Clinician Unavailable Sloan Skelton MD Attending Clinician Consuelo HENSLEY Attending Clinician Verónica HENSLEY, M. Attending Clinician MAYDA THOMAS MD Attending Clinician Unavailable Daniella REYES Attending Clinician Unavailable Deo Sandoval MD Attending Clinician MD DEO SANDOVAL Attending Clinician Unavailable Brandyn REYES Attending Clinician Unavailable Lab, Fam Pob I Attending Clinician Unavailable Nasrin REYES, A Attending Clinician Unavailable Alisha HENSLEY Attending Clinician SHAYY DAVEY Attending Clinician Unavailable RUSSELL ESCALONA Attending Clinician Unavailable MAYDA THOMAS Admitting Clinician Unavailable MAYDA THOMAS MD Admitting Clinician Unavailable MD SYLVIA Admitting Clinician Unavailable JAIME Admitting Clinician Unavailable MD DEO SANDOVAL Admitting Clinician Unavailable NANCY Admitting Clinician Unavailable MD NANCY Admitting Clinician Unavailable Alisha HENSLEY Admitting Clinician SHAYY DAVEY Admitting Clinician Unavailable RUSSELL ESCALONA Admitting Clinician Unavailable Payers Payer Name Policy Type Policy Effective Date Expiration Date Sour ce Number [facility] [id number] 2019 [place] CHOICE 00:00:00 [facility] EXCHANGE MARKETPLACExxxxxx [id number] esentExchange Problems Condition Condition Condition Status Onset Resolution Last Treating Co mments Source Name Details Category Date Date Treatment Clinician Date Abdominal Abdominal Disease Active B[facility]bara ston pain, pain, 3-02 [facility] acute acute 00:00: st 00 Liver Liver Disease Active [facility] cirrhosis cirrhosis 3-01 Meth dimitri 00:00: st 00 Epigastric Epigastric Disease Active [place] pain pain 3-01 [facility] 00:[facility]: st 00 Pancreatit Pancreatit Disease Active 2019-04 [place] is due to is due to 2-09 Meth dimitri common common 00:00: st bile duct bile duct 00 stone stone 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 2-04 [facility] i 00:[facility]: st 00 Acute Acute Disease Active 2019-04 [facility] pancreatit pancreatit 2-04 Me thodi is without [...] ents Source Name Type Date Date Clinician Mikaelamor Deysiensi Active Itching [place] phone ty to 312 [facility] adverse 00:00: st reaction 00 s to drug Morphine Propensi Active Other (See 2019-04 Tightness [facility] ty to Comments) 2-04 of throat Meth dimitri adverse 00:00: st reaction 00 s to drug Latex Propensi Active Rash 2016-[address] [facility] s Morphine Propensi Active Shortness Of Throat [facility] to Breath, 06-30 [facility], [facility] - adverse Swelling 00:00: tongue Medical reaction 00 swelling Center s MORPHINE Adverse Active Info Not [facility] Social History Social Habit Start Date Stop Date Quantity Comments Source History [facility] Alcohol Std Drinks History [facility] Alcohol Binge Tobacco use and 2020-06-24 2020-06-24 Never used Nishant Mittal ethodist exposure 00:00:00 00:00:00 Alcohol intake 2020-06-24 2020-06-24 [facility] thodist 00:00:00 00:00:00 non-drinker (finding) History SDOH 2020-03-19 2020-03-19 1 [facility] Alcohol Frequency 00:00:00 00:00:00 Sex Ass[birth year] At [birth year] [place] Kyrie ethodist 00:00:00 00:00:00 Smoking Status Start Date Stop Date Source Never smoker [facility] Medications Ordered Filled Start Stop Current Ordering Indication Dosage Frequency Signature Comments Components Source Medication Medication Date Date Medication? Clinician (SIG) Name Name pancrelipas 2020- No 1{capsu Q.[id number] Take 1 Dillard e, 09-12 le} [id number] capsule by Mo hussein lipase-prot 13:46: 00:[address] ease-amylas 57 :00 (three) e, (CREOND) times a 12,000-38,0 day with 00 -60,000 meals. unit capsule,del ayed release(DR/ EC) capsule lactulose Yes 20g QD Take 20 g B[facility]bara ston 10 gram/15 09-12 by mouth Metho di mL (15 mL) 13:46: daily. st solution 52 spironolact Yes 25mg QD Take 25 mg [facility] one 09-12 by mouth [facility] (ALDACTONE) 13:46: daily. st 25 MG 52 tablet furosemide Yes 20mg QD Take 20 mg [place] (LASIX) 20 09-12 by mouth Metho di mg tablet 13:46: daily. st 52 pancrelipas 2020- Yes 2{capsu Q.[id number] Take 2 [place] e, 09-12 le} [id number] capsules Meth dimitri lipase-prot 00:00: 23:59 3D by mouth 3 st ease-amylas 00 :00 (three) e, (CREOND) times a 12,000-38,0 day with 00 -60,000 meals for unit 30 days. capsule,del ayed release(DR/ EC) capsule pancrelipas 2020- Yes 1{capsu Q.5D Take 1 [place]illard e, 09-12 le} capsule by [facility] lipase-prot 00:00: 23:[address] ease-amylas 00 :00 (two) e, (CREOND) times a 12,000-38,0 day as 00 -60,000 needed for unit snacks for capsule,del up to 30 ayed days. release(DR/ EC) capsule hydrOXYzine 2020- Yes 25mg Q.25D Take 1 [place] (ATARAX) 25 09-12 tablet (25 M ethodi MG tablet 00:00: 23:59 mg total) st 00 :00 by mouth 4 (four) times a day as needed for itching or anxiety for up to 30 days. methocarbam 2020- Yes 500mg Q.[id number] Take 1 [facility]illard oL -07 16- [id number] tablet Method i (ROBAXIN) 00:00: 23:59 3D ([address] 500 MG 00 :00 total) by tablet mouth 3 (three) times a day as needed (crampy abdominal pain) for up to 30 days. pantoprazol 2020- Yes 40mg Q.5D Take 1 Bárbara hopkins e 09-12 tablet (40 [facility] (PROTONIX) 00:00: 23:59 mg total) s t 40 MG EC 00 :00 by mouth 2 tablet (two) times a day for 30 days. ciprofloxac 2020- No 500mg Q.5D Take 1 Aurelio wilburn in (CIPRO) 09-12 tablet Method i 500 MG 00:00: 23:59 ([address] tablet 00 :00 total) by mouth 2 (two) times a day for 10 days. metroNIDAZO 2020- No 500mg Q.[id number] Take 1 Nishant LE (FLAGYL) 09-12 [id number] tablet Methodi 500 MG 00:00: 23:59 3D ([address] tablet 00 :00 total) by mouth 3 (three) times a day for 10 days. oxyCODONE 2020- No acute pain 5mg Q4H Take 1 [facility] (ROXICODONE 09-12 tablet (5 Me thodi ) 5 MG 00:00: 23:59 mg total) st immediate 00 :00 by mouth release every 4 tablet (four) hours as needed for moderate pain for up to 10 days .acute pain. Max Daily Amount: 30 mg HYDROcodone 2020- No acute pain 1{tbl} Q6H Take 1 [facility] -acetaminop 09-12 tablet by Me thodi hen (NORCO) 00:00: 23:[address] 7.5-325 mg 00 :00 every 6 per tablet (six) hours as needed for moderate pain for up to 10 days .acute pain. Max Daily Amount: 4 tablets alum-mag 2020- No 30mL Q.25D Take 30 mL [place] hydroxide-s -22 06-24 by mouth 4 M ethodi imeth 00:00: 23:59 (four) st (MAALOX 00 :00 times a PLUS) day before 200-200-20 meals and mg/5 mL nightly suspension for 10 days. dicyclomine 2020- No 40mg Q.25D Take 2 [facility] [place] (BENTYL) 20 3-12 04-11 tablets Meth dimitri mg tablet 00:00: 23:59 ([address] 00 :00 total) by mouth 4 (four) times a day for 30 days. ondansetron 4mg Q8H Take 1 Bárbara ston ODT 06-20 tablet (4 [facility] (ZOFRAN-ODT 00:00: 23:59 mg total) st ) 4 MG 00 :00 by mouth disintegrat every 8 ing tablet (eight) hours as needed for nausea or vomiting for up to 30 days. pantoprazol No 40mg QD Take 1 Bárbara ston e 06-2011 tablet (40 [facility] (Protonix) 00:00: 23:59 mg total) s t 40 MG EC 00 :00 by mouth tablet daily for 30 days. pancrelipas 2019-04 1{capsu Q.[id number] Take 1 Dillard e, 2-13 01-12 le} [id number] capsule by Me savage lipase-prot 00:00: 23:[address] ease-amylas 00 :00 (three) e, (CREOND) times a 12,000-38,0 day with 00 -60,000 meals for unit 30 days. capsule,del ayed release(DR/ EC) capsule ibuprofen 2019-04 400mg Take 400 [place] (ADVIL) 200 [...] 2019- No Gm [address] [facility] 6- 07-09 [facility] lactulose Yes 10g Q.5D Take [address] (CEPHULAC) 6-25 by mouth 2 Lesly es - 10 gram 17:37: (two) Medical packet 13 times Center daily . rifAXIMin 2019-0 Yes hepatic 550mg Q.5D Take [address] 550 mg Tab 6-25 encephalopa mg by L ukes - 17:37: thy mouth 2 Medical 13 (two) Center times daily. Oseltamivir Oseltamivir Yes Gm not [facility] [...] Clavulanate [facility] Pantoprazol Pantoprazol Yes Gm not [facility] e Sodium e Sodium [facility] Acetaminoph Acetaminoph Yes Gm not [facility] en-Codeine en-Codeine [facility] Vital Signs Vital Name Observation Time Observation Value Comments Source Systolic blood 2020-09-12 07:29:36 134 mm[Hg] Chellyto n Rastafari pressure Diastolic blood 2020-09-12 07:29:36 61 mm[Hg] Nestor on Rastafari pressure Heart rate 2020-09-12 07:29:36 79 /min Nishant Chaidez Body temperature 2020-09-12 07:29:36 37.22 Sandee Chelly muñiz Rastafari Respiratory rate 2020-09-12 07:29:36 19 /min Chelly Chaidez Oxygen saturation in 2020-09-12 07:29:36 95 /min Nishant Chaidez Arterial blood by Pulse oximetry Body weight 2020-09-12 03:48:39 122.063 kg Nishant Chaidez BMI 2020-09-12 03:48:39 46.19 kg/m2 Nishant Chaidez Body height 2020-06-09 11:50:00 162.6 cm Nishant Chaidez Procedures Procedure Date / Time Performing Clinician Source Performed HC COMPLETE BLD COUNT 2020-09-12 06:12:00 Bebeto Sullivan on Rastafari W/AUTO DIFF BASIC METABOLIC PANEL 2020-09-12 06:12:00 Bebeto Sullivan on Rastafari HEPATIC FUNCTION PANEL 2020-09-12 06:12:00 Bebeto Sullivan Rastafari MAGNESIUM LEVEL 2020-09-12 06:12:00 Bebeto Sullivan Met hodist PHOSPHORUS LEVEL 2020-09-12 06:12:00 Bebeto Sullivan Me thodist PROTHROMBIN TIME WITH INR 2020-09-12 06:12:00 Bebeto Sullivan C-REACTIVE PROTEIN 2020-09-12 06:12:00 Bebeto Sullivan LDH 2020-09-12 06:12:00 Bebeto Sullivan Met hodnohelia ESTIMATED GFR 2020-09-12 06:12:00 Bebeto Sullivan Met hodist SMEAR REVIEW 2020-09-12 06:12:00 Bebeto Sullivan Met hodnohelia COVID-19 QUALITATIVE PCR 2020-09-11 19:28:[address] ABDOMEN PELVIS W 2020-09-11 12:59:08 Viktor Cruz CONTRAST XR ABDOMEN 1 VW PORTABLE 2020-09-11 09:58:00 Bebeto Sullivan HC COMPLETE BLD COUNT 2020-09-11 04:50:00 Bebeto Sullivan on Rastafari W/AUTO DIFF PROTHROMBIN TIME WITH INR 2020-09-11 04:50:00 Bebeto Sullivan SEDIMENTATION RATE 2020-09-11 04:50:00 Bebeto Sullivan Rastafari SMEAR REVIEW 2020-09-11 04:50:00 Meek Suresh on Rastafari BASIC METABOLIC PANEL 2020-09-11 04:00:00 Bebeto Sullivan on Rastafari HEPATIC FUNCTION PANEL 2020-09-11 04:00:00 Bebeto Sullivan Rastafari MAGNESIUM LEVEL 2020-09-11 04:00:00 Bebeto Sullivan Met hodist PHOSPHORUS LEVEL 2020-09-11 04:00:00 Bebeto Sullivan Me thodist C-REACTIVE PROTEIN 2020-09-11 04:00:00 Bebeto Sullivan Rastafari LDH 2020-09-11 04:00:00 Bebeto Sullivan Met hodist ESTIMATED GFR 2020-09-11 04:00:00 Bebeto Sullivan Met hodist US HEPATIC 2020-09-10 11:26:00 Meek Suresh on Rastafari US ABDOMINAL DOPPLER 2020-09-10 11:18:00 Meek Suresh MAGNESIUM LEVEL 2020-09-10 03:02:00 Meek Suresh on Rastafari PHOSPHORUS LEVEL 2020-09-10 03:02:00 Meek Suresh Rastafari HC COMPLETE BLD COUNT 2020-09-10 03:02:00 Bebeto Sullivan on Rastafari W/AUTO DIFF BASIC METABOLIC PANEL 2020-09-10 03:02:00 Bebeto Sullivan on Rastafari HEPATIC FUNCTION PANEL 2020-09-10 03:02:00 Bebeto Sullivan Rastafari PROTHROMBIN TIME WITH INR 2020-09-10 03:02:00 Bebeto Sullivan Rastafari AMYLASE LEVEL 2020-09-10 03:02:00 Myra Quinn Me thodist ALPHA FETOPROTEIN 2020-09-10 03:02:00 Myra Quinn ESTIMATED GFR 2020-09-10 03:02:00 Meek Suresh on Rastafari SMEAR REVIEW 2020-09-10 03:02:00 Meek Suresh on Rastafari XR ABDOMEN 1 VW PORTABLE 2020-09-09 19:11:53 Myra Quinn Rastafari URINALYSIS SCREEN AND 2020-09-09 11:22:00 Meek Suresh Rastafari MICROSCOPY, WITH REFLEX TO CULTURE URINE CULTURE 2020-09-09 11:22:00 Meek Suresh on Rastafari BLOOD CULTURE, AEROBIC & 2020-09-09 11:21:00 Ricardo Suresh Rastafari ANAEROBIC BLOOD CULTURE, AEROBIC & 2020-09-09 11:16:00 Ricardo Suresh Rastafari ANAEROBIC PROTHROMBIN TIME WITH INR 2020-09-09 10:55:00 Dipak Suresh valencia Nishant Rastafari HC COMPLETE BLD COUNT 2020-09-09 10:53:00 Meek Suresh Rastafari W/AUTO DIFF COMPREHENSIVE METABOLIC 2020-09-09 10:53:00 Sina Suresh Rastafari PANEL LACTIC ACID LEVEL 2020-09-09 10:53:00 Meek Suresh Rastafari LIPID PANEL 2020-09-09 10:53:00 Meek Suresh on Rastafari MAGNESIUM LEVEL 2020-09-09 10:53:00 Meek Suresh on Rastafari PHOSPHORUS LEVEL 2020-09-09 10:53:00 Meek Suresh Rastafari LIPASE LEVEL 2020-09-09 10:53:00 Meek Suresh on Rastafari ESTIMATED GFR 2020-09-09 10:53:00 Meek Suresh on Rastafari SMEAR REVIEW 2020-09-09 10:53:00 Meek Suresh on Rastafari HC COMPLETE BLD COUNT 2020-06-22 04:30:00 Viktor Cruz Rastafari W/AUTO DIFF COMPREHENSIVE METABOLIC 2020-06-22 04:30:00 Viktor Cruz Rastafari PANEL PROTHROMBIN TIME WITH INR 2020-06-22 04:30:00 Viktor Cruz Rastafari ESTIMATED GFR 2020-06-22 04:30:00 Viktor Cruz Meth odist SMEAR REVIEW 2020-06-22 04:30:00 [address] odist CT ANGIOGRAM PE CHEST 2020-06-21 11:23:44 Viktor Cruz HC COMPLETE BLD COUNT 2020-06-21 05:45:00 Viktor Cruz W/AUTO DIFF PROTHROMBIN TIME WITH INR 2020-06-21 05:45:00 Viktor Cruz B NATRIURETIC PEPTIDE 2020-06-21 05:45:00 Ofelia Daniels SMEAR REVIEW 2020-06-21 05:45:00 Viktor Cruz COMPREHENSIVE METABOLIC 2020-06-21 04:00:00 Viktor Cruz Rastafari PANEL ESTIMATED GFR 2020-06-21 04:00:00 Viktor Cruz LIPASE LEVEL 2020-06-21 04:00:00 Viktor Cruz XR CHEST 1 VW PORTABLE 2020-06-21 01:18:40 Ofelia Daniels ECG 12-LEAD 2020-06-20 22:50:00 Evette Riggins HC COMPLETE BLD COUNT 2020-06-20 22:30:00 Ofelia Daniels W/AUTO DIFF BASIC METABOLIC PANEL 2020-06-20 22:30:00 Ofelia Daniels ESTIMATED GFR 2020-06-20 22:30:00 Ofelia Daniels ethodist MAGNESIUM LEVEL 2020-06-20 22:30:00 Ofelia Daniels ethodist PHOSPHORUS LEVEL 2020-06-20 22:30:00 Ofelia Daniels CREATINE KINASE, TOTAL 2020-06-20 21:56:00 Viktor Cruz (CPK) TROPONIN 2020-06-20 21:53:00 Viktor Cruz POC GLUCOSE 2020-06-20 21:48:00 Viktor Cruz SURGICAL PATHOLOGY 2020-06-20 14:38:00 Viktor Cruz ethodist REQUEST SURGICAL PATHOLOGY 2020-06-20 13:38:00 Viktor Cruz ethodist REQUEST US UPPER GI TRACT, 2020-06-20 13:35:00 Carolin Sanches KyrieJason Mittal ethodist ENDOSCOPIC HC COMPLETE BLD COUNT 2020-06-20 05:50:00 NancyVigneshViktor Rishabh jefferson Rastafari W/AUTO DIFF PROTHROMBIN TIME WITH INR 2020-06-20 05:50:00 NancyVigneshViktor Aurelio wilburn Rastafari COMPREHENSIVE METABOLIC 2020-06-20 05:50:00 Viktor Cruz Rastafari PANEL MAGNESIUM LEVEL 2020-06-20 05:50:00 NancyViktor Meth odist PHOSPHORUS LEVEL 2020-06-20 05:50:00 NancyViktor Met hodist ESTIMATED GFR 2020-06-20 05:50:00 NancyViktor Meth odist SMEAR REVIEW 2020-06-20 05:50:00 Viktor Cruz odist COVID-19 QUALITATIVE PCR 2020-06-19 14:52:00 Carolin Sanches Rastafari COMPREHENSIVE METABOLIC 2020-06-19 05:30:00 Nancy Viktor muñiz Rastafari PANEL HC COMPLETE BLD COUNT 2020-06-19 05:30:00 NancyVigneshViktor Rishabh jefferson Rastafari W/AUTO DIFF PROTHROMBIN TIME WITH INR 2020-06-19 05:30:00 Nancy Viktor Aurelio wilburn Rastafari ESTIMATED GFR 2020-06-19 05:30:00 Viktor Cruz Meth odist SMEAR REVIEW 2020-06-19 05:30:00 NancyViktor Meth odist HC COMPLETE BLD COUNT 2020-06-18 02:56:00 NancyVigneshViktoranita jefferson Rastafari W/AUTO DIFF BASIC METABOLIC PANEL 2020-06-18 02:56:00 Nancy Viktor Rishabh jefferson Rastafari PROTHROMBIN TIME WITH INR 2020-06-18 02:56:00 NancyVigneshViktor Aurelio wilburn Rastafari ESTIMATED GFR 2020-06-18 02:56:00 NancyViktor Meth odist SMEAR REVIEW 2020-06-18 02:56:[address] ABDOMEN W WO CONTRAST 2020-06-17 11:36:28 Myra Quinn Rastafari HC COMPLETE BLD COUNT 2020-06-17 06:22:00 Meek Suresh Rastafari W/AUTO DIFF BASIC METABOLIC PANEL 2020-06-17 06:22:00 Meek Suresh Rastafari HEPATIC FUNCTION PANEL 2020-06-17 06:22:00 Sharonda Suresh Rastafari PROTHROMBIN TIME WITH INR 2020-06-17 06:22:00 Dipak Suresh Rastafari MAGNESIUM LEVEL 2020-06-17 06:22:00 Meek Suresh on Rastafari ESTIMATED GFR 2020-06-17 06:22:00 Meek Suresh on Rastafari SMEAR REVIEW 2020-06-17 06:22:00 Meek Suresh on Rastafari NM GASTRIC EMPTYING 2020-06-16 14:21:01 Meek Suresh Rastafari HC COMPLETE BLD COUNT 2020-06-16 04:25:00 Meek Suresh W/AUTO DIFF BASIC METABOLIC PANEL 2020-06-16 04:25:00 Meek Suresh Rastafari HEPATIC FUNCTION PANEL 2020-06-16 04:25:00 Sharonda Suresh Rastafari PROTHROMBIN TIME WITH INR 2020-06-16 04:25:00 Dipak Suresh Rastafari MAGNESIUM LEVEL 2020-06-16 04:25:00 Meek Suresh on Rastafari ESTIMATED GFR 2020-06-16 04:25:00 Meek Suresh on Rastafari PHOSPHORUS LEVEL 2020-06-16 04:25:00 Meek Suresh Rastafari SMEAR REVIEW 2020-06-16 04:25:00 Meek Suresh on Rastafari HC COMPLETE BLD COUNT 2020-06-15 07:45:00 Meek Suresh Rastafari W/AUTO DIFF SMEAR REVIEW 2020-06-15 07:45:00 Meek Suresh on Rastafari CBC WITH PLATELET AND 2020-06-15 04:30:00 Meek Suresh Rastafari DIFFERENTIAL BASIC METABOLIC PANEL 2020-06-15 04:30:00 Meek Suresh Rastafari HEPATIC FUNCTION PANEL 2020-06-15 04:30:00 Sharonda Suresh Rastafari PROTHROMBIN TIME WITH INR 2020-06-15 04:30:00 Dipak Suresh Rastafari MAGNESIUM LEVEL 2020-06-15 04:30:00 Meek Suresh on Rastafari ESTIMATED GFR 2020-06-15 04:30:00 Meek Suresh on Rastafari PHOSPHORUS LEVEL 2020-06-15 04:30:00 Meek Suresh Rastafari HC COMPLETE BLD COUNT 2020-06-14 04:40:00 Meek Suresh Rastafari W/AUTO DIFF BASIC METABOLIC PANEL 2020-06-14 04:40:00 Meek Suresh Rastafari HEPATIC FUNCTION PANEL 2020-06-14 04:40:00 Sharonda Suresh Rastafari PROTHROMBIN TIME WITH INR 2020-06-14 04:40:00 Dipak Suresh Rastafari MAGNESIUM LEVEL 2020-06-14 04:40:00 Meek Suresh on Rastafari ESTIMATED GFR 2020-06-14 04:40:00 Meek Suresh on Rastafari PHOSPHORUS LEVEL 2020-06-14 04:40:00 Meek Suresh Rastafari SMEAR REVIEW 2020-06-14 04:40:00 Meek Suresh on Rastafari XR ABDOMEN 1 VW 2020-06-13 14:18:40 Meek Suresh on Rastafari HC COMPLETE BLD COUNT 2020-06-13 04:39:00 Meek Suresh Rastafari W/AUTO DIFF BASIC METABOLIC PANEL 2020-06-13 04:39:00 Meek Suresh Rastafari HEPATIC FUNCTION PANEL 2020-06-13 04:39:00 Sharonda Suresh Rastafari PROTHROMBIN TIME WITH INR 2020-06-13 04:39:00 Dipak Suresh Rastafari MAGNESIUM LEVEL 2020-06-13 04:39:00 Meek Suresh on Rastafari ESTIMATED GFR 2020-06-13 04:39:00 Meek Suresh on Rastafari SMEAR REVIEW 2020-06-13 04:39:00 Meek Suresh on Rastafari HC COMPLETE BLD COUNT 2020-06-12 06:19:00 Meek Suresh Rastafari W/AUTO DIFF BASIC METABOLIC PANEL 2020-06-12 06:19:00 Meek Suresh Rastafari HEPATIC FUNCTION PANEL 2020-06-12 06:19:00 Sharonda Suresh Rastafari PROTHROMBIN TIME WITH INR 2020-06-12 06:19:00 Dipak Suresh Rastafari MAGNESIUM LEVEL 2020-06-12 06:19:00 Meek Suresh on Rastafari ESTIMATED GFR 2020-06-12 06:19:00 Meek Suresh on Rastafari SMEAR REVIEW 2020-06-12 06:19:00 Meek Suresh on Rastafari HC COMPLETE BLD COUNT 2020-06-11 04:25:00 Meek Sruesh Rastafari W/AUTO DIFF BASIC METABOLIC PANEL 2020-06-11 04:25:00 Meek Suresh Rastafari HEPATIC FUNCTION PANEL 2020-06-11 04:25:00 Sharonda Suresh Rastafari PROTHROMBIN TIME WITH INR 2020-06-11 04:25:00 Dipak Suresh Rastafari MAGNESIUM LEVEL 2020-06-11 04:25:00 Meek Suresh on Rastafari ESTIMATED GFR 2020-06-11 04:25:00 Meek Suresh on Rastafari SMEAR REVIEW 2020-06-11 04:25:00 Meek Suresh on Rastafari PROTHROMBIN TIME WITH INR 2020-06-10 05:15:00 Dipak Suresh Rastafari HC COMPLETE BLD COUNT 2020-06-10 05:15:00 Meek Suresh W/AUTO DIFF COMPREHENSIVE METABOLIC 2020-06-10 05:15:00 Sina Suresh Rastafari PANEL ESTIMATED GFR 2020-06-10 05:15:00 Meek Suresh on Rastafari URINALYSIS SCREEN AND 2020-06-09 23:20:00 Meek Suresh MICROSCOPY, WITH REFLEX TO CULTURE URINE CULTURE 2020-06-09 23:20:[address] ABDOMEN PELVIS W 2020-06-09 22:26:44 Jefferson Skelton CONTRAST BLOOD CULTURE, AEROBIC & 2020-06-09 21:35:00 Ricardo Suresh ANAEROBIC BLOOD CULTURE, AEROBIC & 2020-06-09 21:30:00 Ricardo Suresh Rastafari ANAEROBIC COVID-19 QUALITATIVE PCR 2020-06-09 20:42:00 Ricardo Suresh HC COMPLETE BLD COUNT 2020-06-09 14:46:00 Zafar Zapien W/AUTO DIFF SMEAR REVIEW 2020-06-09 14:46:00 Zafar Zapien ethodist COMPREHENSIVE METABOLIC 2020-06-09 11:53:00 Zafar Zapien LIPASE LEVEL 2020-06-09 11:53:00 Zafar Zapien ethgabo LACTIC ACID LEVEL, SEPSIS 2020-06-09 11:53:00 Zafar Zapien - NOW AND REPEAT 2X EVERY 3 HOURS ESTIMATED GFR 2020-06-09 11:53:00 Zafar Zapien ethodist BASIC METABOLIC PANEL 2020-03-22 05:15:00 Jeremy Sandoval HC COMPLETE BLD COUNT 2020-03-22 05:15:00 Jeremy Sandoval W/AUTO DIFF Deo MAGNESIUM LEVEL 2020-03-22 05:15:00 Jeremy Sandoval odnohelia Desouza HEPATIC FUNCTION PANEL 2020-03-22 05:15:00 Dinakar, Jeremy Baez on Rastafari Deo PHOSPHORUS LEVEL 2020-03-22 05:15:00 Dinakar, Jeremy Dillard Met hodnohelia Childersra PROTHROMBIN TIME WITH INR 2020-03-22 05:15:00 Dinakar, Jeremy wilburn Rastafari Deo LIPASE LEVEL 2020-03-22 05:15:00 Dinakar, Jeremy Tanner odist Deo AMYLASE LEVEL 2020-03-22 05:15:00 Dinakar, Jeremy Tanner odist Deo ESTIMATED GFR 2020-03-22 05:15:00 Dinakar, Jeremy Tanner odist Deo SMEAR REVIEW 2020-03-22 05:15:00 Dinakar, Jeremy Tanner odist Deo BASIC METABOLIC PANEL 2020-03-21 04:43:00 Dinakar, Jeremy Chaidez Deo CBC WITH PLATELET AND 2020-03-21 04:43:00 Dinakar, Jeremy jefferson Rastafari DIFFERENTIAL Deo MAGNESIUM LEVEL 2020-03-21 04:43:00 Dinakar, Jeremy Tanner odist Deo HEPATIC FUNCTION PANEL 2020-03-21 04:43:00 Dinakar, Jeremy shelton Rastafari Deo PHOSPHORUS LEVEL 2020-03-21 04:43:00 Dinakar, Jeremy Desouza PROTHROMBIN TIME WITH INR 2020-03-21 04:43:00 Dinakar, Jeremy Rileyist Deo LIPASE LEVEL 2020-03-21 04:43:00 Dinakar, Jeremy ayon Deo AMYLASE LEVEL 2020-03-21 04:43:00 Dinakar, Jeremy Tanner odist Deo ESTIMATED GFR 2020-03-21 04:43:00 Dinakar, Jeremy Tanner odist Deo MANUAL DIFFERENTIAL 2020-03-21 04:43:00 Dinakar, Jeremy Chaidez Deo BASIC METABOLIC PANEL 2020-03-20 05:20:00 Dinakar, Jeremy jefferson Rastafari Deo HC COMPLETE BLD COUNT 2020-03-20 05:20:00 Dinakar, Jeremy jefferson Rastafari W/AUTO DIFF Deo MAGNESIUM LEVEL 2020-03-20 05:20:00 Dinakar, Jeremy Tanner odist Deo HEPATIC FUNCTION PANEL 2020-03-20 05:20:00 Dinakar, Jeremy Baez on Rastafari Deo PHOSPHORUS LEVEL 2020-03-20 05:20:00 Dinakar, Jeremy Dillard Met hodist Deo PROTHROMBIN TIME WITH INR 2020-03-20 05:20:00 Dinakar, Jeremy wilburn Rastafari Deo LIPASE LEVEL 2020-03-20 05:20:00 Dinakar, Jeremy Tanner odist Deo AMYLASE LEVEL 2020-03-20 05:20:00 Dinakar, Jeremy Tanner odist Deo ESTIMATED GFR 2020-03-20 05:20:00 Dinakar, Jeremy Tanner odist Deo SMEAR REVIEW 2020-03-20 05:20:00 Dinakar, Jeremy Tanner odist Deo URINALYSIS, AUTOMATED 2020-03-19 12:52:00 Dinakar, Jeremy jefferson Rastafari WITH MICROSCOPY Deo COVID-19 QUALITATIVE PCR 2020-03-19 11:58:00 Dinakar, Jeremy hopkins Rastafari Deo BASIC METABOLIC PANEL 2020-03-19 11:55:00 Dinakar, Jeremy Desouza HC COMPLETE BLD COUNT 2020-03-19 11:55:00 Dinakar, Jeremy jefferson Rastafari W/AUTO DIFF Deo HEPATIC FUNCTION PANEL 2020-03-19 11:55:00 Dinakar, Jeremy Baez on Rastafari Deo MAGNESIUM LEVEL 2020-03-19 11:55:00 Dinakar, Jeremy Tanner odist Deo PHOSPHORUS LEVEL 2020-03-19 11:55:00 Dinakar, Jeremy Dillard Met usha Desouza PROTHROMBIN TIME WITH INR 2020-03-19 11:55:00 Dinakar, Jeremy wilburn Rastafari Deo AMYLASE LEVEL 2020-03-19 11:55:00 Dinakar, Jeremy Tanner odist Deo LIPASE LEVEL 2020-03-19 11:55:00 Dinakar, Jeremy Tanner odist Deo ESTIMATED GFR 2020-03-19 11:55:00 Dinakar, Jeremy Tanner odist Deo SMEAR REVIEW 2020-03-19 11:55:00 Dinakar, Jeremy Tanner odist Deo BASIC METABOLIC PANEL 2020-03-18 04:18:00 Dinakar, Jeremy jefferson Rastafari Deo HC COMPLETE BLD COUNT 2020-03-18 04:18:00 Dinakar, Jeremy jefferson Rastafari W/AUTO DIFF Deo MAGNESIUM LEVEL 2020-03-18 04:18:00 Dinakar, Jeremy Dillard Meth odist Deo HEPATIC FUNCTION PANEL 2020-03-18 04:18:00 Dinakar, Jeremy Baez on Rastafari Deo PHOSPHORUS LEVEL 2020-03-18 04:18:00 Dinakar, Jeremy Dillard Met hodist Deo PROTHROMBIN TIME WITH INR 2020-03-18 04:18:00 Dinakar, Jeremy wilburn Rastafari Deo LIPASE LEVEL 2020-03-18 04:18:00 Dinakar, Jeremy Dillard Meth odist Deo AMYLASE LEVEL 2020-03-18 04:18:00 Dinakar, Jeremy Dillard Meth odist Deo ALPHA FETOPROTEIN 2020-03-18 04:18:00 FauriaMyraist ESTIMATED GFR 2020-03-18 04:18:00 Myra Quinn Me thodist SMEAR REVIEW 2020-03-18 04:18:00 Myra Quinn [facility] CBC WITH PLATELET AND 2020-03-17 04:15:00 Viktor Cruz [facility] DIFFERENTIAL COMPREHENSIVE METABOLIC 2020-03-17 04:15:00 Viktor Cruz Rastafari PANEL MAGNESIUM LEVEL 2020-03-17 04:15:00 Viktor Cruz [facility]ist PHOSPHORUS LEVEL 2020-03-17 04:15:00 Viktor Cruz Met [facility] PROTHROMBIN TIME WITH INR 2020-03-17 04:15:00 Viktor Cruz Rastafari URIC ACID LEVEL 2020-03-17 04:15:00 Viktor Cruz [facility] LDH 2020-03-17 04:15:00 Viktor Cruz [facility] ESTIMATED GFR 2020-03-17 04:15:00 Viktor Cruz [facility] SMEAR REVIEW 2020-03-17 04:15:00 Viktor Cruz [facility] CBC WITH PLATELET AND 2020-03-16 04:32:00 Viktor Cruz Rastafari DIFFERENTIAL COMPREHENSIVE METABOLIC 2020-03-16 04:32:00 Viktor Cruz Rastafari PANEL MAGNESIUM LEVEL 2020-03-16 04:32:00 Viktor Cruz [facility] PHOSPHORUS LEVEL 2020-03-16 04:32:00 Viktor Cruz [facility] PROTHROMBIN TIME WITH INR 2020-03-16 04:32:00 Viktor Cruz Aurelio wilburn Rastafari URIC ACID LEVEL 2020-03-16 04:32:00 Viktor Curz Meth odist LDH 2020-03-16 04:32:00 Viktor Cruz Meth odist ESTIMATED GFR 2020-03-16 04:32:00 Viktor Cruz [facility] SMEAR REVIEW 2020-03-16 04:32:00 Viktor Cruz [facility] CBC WITH PLATELET AND 2020-03-15 04:45:00 Viktor Cruz Rastafari DIFFERENTIAL PROTHROMBIN TIME WITH INR 2020-03-15 04:45:00 NancyViktor Aurelio wilburn Rastafari HEMOGLOBIN A1C 2020-03-15 04:45:00 Viktor Cruz [facility] odist SMEAR REVIEW 2020-03-15 04:45:00 NancyViktor Meth odist COMPREHENSIVE METABOLIC 2020-03-15 04:00:00 Vitkor Cruz Rastafari PANEL MAGNESIUM LEVEL 2020-03-15 04:00:00 Viktor Cruz odist PHOSPHORUS LEVEL 2020-03-15 04:00:00 Viktor Cruz [facility] THYROID STIMULATING 2020-03-15 04:00:00 NancyViktor Nishant Rileyist HORMONE T4 2020-03-15 04:00:00 NancyViktor odist URIC ACID LEVEL 2020-03-15 04:00:00 Viktor Cruz [facility] LDH 2020-03-15 04:00:00 Viktor Cruz [facility] od[facility] ESTIMATED GFR 2020-03-15 04:00:00 NancyViktor odist BILIRUBIN DIRECT 2020-03-15 04:00:[address] ABDOMEN WWO CONTRAST 2020-03-14 21:04:21 Viktor Cruz Rastafari PELVIS W CONTRAST COMPREHENSIVE METABOLIC 2020-03-14 17:20:00 Viktor Cruz Rastafari PANEL HC COMPLETE BLD COUNT 2020-03-14 17:20:00 Viktor Cruz Rastafari W/AUTO DIFF LIPASE LEVEL 2020-03-14 17:20:00 Viktor Cruz [facility] MAGNESIUM LEVEL 2020-03-14 17:20:00 Viktor Cruz [facility]ist PHOSPHORUS LEVEL 2020-03-14 17:20:00 Viktor Cruz [facility] PROTHROMBIN TIME WITH INR 2020-03-14 17:20:00 Viktor Cruz Aurelio wilburn Rastafari LACTIC ACID LEVEL 2020-03-14 17:20:00 Viktor Cruz [facility] ESTIMATED GFR 2020-03-14 17:20:00 Viktor Cruz [facility] SMEAR REVIEW 2020-03-14 17:20:00 Viktor Cruz [facility] COVID-19 QUALITATIVE PCR 2020-03-14 16:30:00 Viktor Cruzumm Chaidez Plan of Care Planned Activity Planned Date Details Comments Source Future Scheduled 2021-10-[address] [facility]:00 (procedure) [code = [facility] [id number]] Future Scheduled 2020-12-[address] [facility] - Test 00:00:00 (Season Ended) [code Medical Center = INFLUENZA VACCINE (Season Ended)] Future Scheduled 2020-11-09 INFLUENZA VACCINE [place] [facility] 00:[facility]:00 [code = INFLUENZA VACCINE] Future Scheduled 2020-04-[address] [facility] - Test 00:00:00 (12+) [code = [facility] DEPRESSION SCREENING (12+)] Future Scheduled 2011 SHINGLES VACCINES ([address] [facility] - Test 00:00:00 of 2) [code = [facility] SHINGLES VACCINES (1 of 2)] Future Scheduled 2011 BREAST CANCER [facility] 00:00:00 SCREENING [code = BREAST CANCER SCREENING] Future Scheduled 2011 COLONOSCOPY SCREENING [place] [facility] Test 00:00:00 [code = COLONOSCOPY SCREENING] Future Scheduled 2011 SHINGLES VACCINES [place] [facility] 00:00:00 (#1) [code = SHINGLES VACCINES (#1)] Future Scheduled [address] [facility] 00:[facility]00 malignant neoplasm of [facility] cervix (procedure) [code = 941391415] Future Scheduled 1982 Screening for [facility] 00:00:00 malignant neoplasm of cervix (procedure) [code = 200920938] Future Scheduled 1980 DTAP/TDAP/TD VACCINES [facility] 00:[facility]:00 (1 - Tdap) [code = Medical C enter DTAP/TDAP/TD VACCINES (1 - Tdap)] Future Scheduled 1979 HEPATITIS C SCREENING [facility] 00:[facility]:00 [code = HEPATITIS C Medical Center SCREENING] Future Scheduled 1979 Hepatitis C screening [place] [facility] Test 00:00:00 (procedure) [code = 365789861] Future Scheduled [address] [facility] 00:00:00 [facility] breast (procedure) [code = 357472731] Future Scheduled [address] [facility] 00:00:00 [facility] colon (procedure) [code = 839841248] Encounters Start End Encounter Admission Attending Care Care Encounter Source Date/Time Date/Time Type Type Clinicians Facility Department ID 2020-09-09 2020-09-12 Inpatient [facility] [id number] [facility] 00:[facility]:00 00:00:[address] 2020-06-09 2020-06-22 Inpatient [facility] [id number] [facility] 00:00:00 00:00:00 836 [facility] i 2020-03-19 2020-03-23 Inpatient [facility] [id number] [facility] 00:00:00 00:00:[address]ER[address] [address] 2020-03-14 2020-03-18 Inpatient DIN[facility] [id number] [facility] 00:00:00 00:00:00 JEREMY [address] 2020-02-13 2020-02-13 Laboratory Lab, [facility] [id number] 10:22:10 10:42:10 Only Fam [facility] [id number] [place] 4.2.7.2.686 Professio [phone] nal [address] One 2019-09-28 2019-09-28 [facility] [id number] 09:00[facility]00 09[facility] 2019-09-18 2019-09-18 [facility] [id number] 09:30:00 09:30:00 [facility] 2019-08-14 2019-08-14 Transition Jocelyne Alexandra [id number] 00:00:00 00:00:00 of Care Jovanny Sotelo [id number] [place] 4.2.7.2.686 [id number] [id number] 2019-08-10 2019-08-11 [facility] [id number] 02:55:00 16:09:00 Encounter Wes Amin 350.1.13.10 [place] 4.2.7.2.686 [place] [id number] Results Test Description Test Time Test Comments Results Result Comments Source SARS-CoV-2 (COVID-19) RNA [Presence] in Respiratory sp ecimen by 2020-09-12 00:49:19 HELENA with probe detection Test Item Value Reference Range Interpretation Comme nts SARS-CoV-2 (COVID-19) RNA [Presence] in Respiratory Not detected No t-Detected specimen by HELENA with probe detection (test code = 33399-5) 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 employed in a healthcare setting (test code = 67730-0) Whether the patient has symptoms related to condition of interest (test code = 30876-3) Patient was hospitalized because of this condition (test code = 16063-6) Whether the patient was admitted to intensive care unit (ICU) for condition of interest (test code = 64473-2) Whether patient resides in a congregate care setting (test code = 07514-7) CT Abdomen Pelvis W Fvjxxaua7599-09-98 13:43:38Hm Interface, Radiology Results 09/11/2020 1:46 PM CDT EXAMINATION: CT ABDOMEN PELVIS W CONTRASTCLINICAL HISTORY: Abdominal abscess infection suspectedTECHNIQUE: Multiple axial images of the abdomen and pelvis were obtained following intravenous administration of iodinated contrast. Sagittal and coronal computerized reformattedimages were also obtained.. All CT images were acquired using radiation dose lowering technique with automated exposure control and / or iterative reconstruction.COMPARISON: CT 06/17/2020IMPRESSION:ABDOMEN:1. Minimal scarring at the lung bases which otherwise clear2.Colonic diverticulosis most pronounced distally. Interval development of inflammatory stranding trace fluid throughout the sigmoid mesocolon and the mesorectum, though no definite wall thickening. This could indicate a mild proctocolitisor potentially mild acute diverticulitis.3.A well marginated 1 cm uniformly hyperdense, possibly enhancing rounded lesion in the gastric cardia/fundus on series 2 image 24, may be a polyp or possibly an intraluminal varix. Endoscopy correlation is advised.4.Mild stranding along the duodenum, suggests duodenitis. Mild stranding along the ascending colon compatible with an additional site of colitis. Bowel loops show no evidence of obstruction, otherwise grossly unremarkable without enteric contrast5.The top of the liver dome is slightly cut off from the uomec-uj-ydiu. Within this limitation no focalhepatic lesion is detected. Liver is cirrhotic. Cholecystectomy.6.Bile ducts, pancreas unremarkable.The spleen enlarged without focal lesion. 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 Subcentimeter renal hypodensities probably cysts. No significant hydronephrosis. Mild fullness of the right renal collecting system.9.Subtle imaging is hypoenhancement in the upper to mid right kidney may indicate pyelonephritis.PELVIS:1. Mild to moderate anasarca. Milddiffuse mesenteric edema. Trace free fluid. No focal fluid collection is detected. No significant lymphadenopathy detected. Sensitivity for detection is decreased due to the paucity of intra-abdominal fat.2.Upper normal inguinal lymph nodes are likely reactive. Hysterectomy. The urinary bladder is incompletely distended otherwise unremarkable.3.Visualized bones show no suspicious lesion.SUMMARY:No abscess identified.Duodenitis and proctocolitis, as detailed above. Sigmoid diverticulitis is felt lesslikely. Follow-up to ensure resolution recommended.Findings suggesting right pyelonephritisGastric polyp versus intraluminal varix. Endoscopy correlation advised.Stable splenic artery aneurysm, 3.1 cm.Vascular surgery consultation advisedDetails and other findings as above1D2RAD_PS08[facility] Abdomen 1 Vw Scnoeyqv5685-10-18 09:59:35 Hm Interface, Radiology Results 09/11/2020 10:02 AM CDT EXAMINATION: XR ABDOMEN 1 PORTABLECLINICAL HISTORY: Nausea vomiting, epigastric abdominal painCOMPARISON: None.FINDINGS:Surgical clips are present related to cholecystectomy.No bowel distention is appreciated.IMPRESSION:Unremarkable abdominal radiograph.1D2RAD_PS05Houkellie RileyistUS Bkvuuec1346-76-29 13:28:25Hm Interface, Radiology Results 09/10/2020 1:31 PM CDT EXAMINATION: US HEPATIC, US ABDOMINAL DOPPLERCLINICAL HISTORY: CirrhosisCOMPARISON: Abdominal ultrasound December 01, 2013. CT abdomen June 17, 2020.FINDINGS:LIVER: Liver demonstrates heterogenous echogenicity and nodular contour compatible cirrhosis. No hepatic mass identified.CBD: Measures 3.5 mm, within normal limits.GALLBLADDER: Surgically removed.OTHER: No ascites or right-sided pleural effusion.MPV: Patent and demonstrates hepatopetal blood flow. Diameter measures 1.3 cm.Left, and anterior and posterior divisions of right portal vein branches are patent with normal direction of flow and Doppler waveform.Hepatic veins: Left, middle and right hepatic veins are patent.Hepatic arteries: Main, left and right hepatic arteries are patent.Splenic artery and vein patent with normal waveforms at the midline abdomen and splenic hilum. Visualized portion of IVC and SMV likewise patent.IMPRESSION:Hepatic cirrhosis. No evidence of hepatic mass.Patent Doppler exam.[facility]-[id number] and approved by residential leasing manager/fellow: Santana Sen M.D.I, Chante Mason MD, personally reviewed the images and resident's/fellow's findings and agree with the final report.[facility] Abdominal Xkyamov3379-13-54 13:28:25Hm Interface, Radiology Results 09/10/2020 1:31 PM CDT EXAMINATION: US HEPATIC, US ABDOMINAL DOPPLERCLINICAL HISTORY: CirrhosisCOMPARISON: Abdominal ultrasound December 01, 2013. CT abdomen June 17, 2020.FINDINGS:LIVER: Liver demonstrates heterogenous echogenicity and nodular contour compatible cirrhosis. No hepatic mass identified.CBD: Measures 3.5 mm, within normal limits.GALLBLADDER: Surgically removed.OTHER: No ascites or right- sided pleural effusion.MPV: Patent and demonstrates hepatopetal blood flow. Diameter measures 1.3 cm.Left, and anterior and posterior divisions of right portal vein branches are patent with normal direction of flow and Doppler waveform.Hepatic veins: Left, middle and right hepatic veins are patent.Hepatic arteries: Main, left and right hepatic arteries are patent.Splenic artery and vein patent with normal waveforms at the midline abdomen and splenic hilum. Visualized portion of IVC and SMV likewise patent.IMPRESSION:Hepatic cirrhosis. No evidence of hepatic mass.Patent Doppler exam.[facility]-[id number] and approved by residential leasing manager/fellow: Santana Sen M.D.I, Chante Mason MD, personally reviewed the images and resident's/fellow's findings and agree with the final report.[facility] TylerUrine [id number] 13:53:44 Test Item Value Reference Range Interpretation Comments Urine culture (test SEE COMMENT Bacteriu bartolo screen code = 6842518) negative. [facility] TylerEC 12 pmpa7103-87-60 19:46:03 Test Item Value Reference Range Interpretation Comments Ventricular rate (test 78 code = 253) Atrial rate (test code = 78 255) CA interval (test code = 152 266) QRSD interval (test code 144 = 260) QT interval (test code = 442 264) QTC interval (test code 503 = 265) P axis 1 (test code = 43 267) QRS axis 1 (test code = 91 268) T wave axis (test code = 21 270) EKG impression (test Normal sinus code = 273) rhythm-Right bundle branch block-Abnormal ECG-No previous ECGs available-Electronica lly Signed By Jose L Shore MD ([id number]) on 06/22/2020 7:46:02 PM [facility] [id number] 14:59:44 Test Item Value Reference Range Interpretation Comments Case number (test code = [id number]) Surgical pathology See link below for report (test code = PDF Lab Report [id number]) Result status (test code This is Final Report = [id number]) for [id number] [facility] Angiogram Pe Kabki6616-41-85 11:33:47Hm Interface, Radiology Results Incoming 06/21/2020 11:36 AM CSTFormatting of this note [...] characterized on recent CT scan of the abdomen.1D2RAD_PS02[facility]XR Chest 1 Vw Dmawltrr9963-11-30 02:07:34Hm Interface, Radiology Results Incoming - 06/21/2020 [...] abnormalities are visualized.1M2RAD_PS01[place] [facility]CT Abdomen W Wo Efsvlikg0915-45-28 11:52:53Hm Interface, Radiology Results 06/17/2020 11:55 AM [...] be considered for further evaluation, if indicated clinically.[id number] MethodistNM Gastric Mdxstwgq1680-71-80 14:38:06 Interface, Radiology Results 06/16/2020 2:41 PM CST PROCEDURE: NM GASTRIC EMPTYINGINDICATION: Epigastric pain. TECHNIQUE: 0.5millicuries of Gz-26u-zugkvj colloid were mixed with an egg and [...] Normal is <100 minutes. IMPRESSION: Normal gastric emptying.[facility] [id number] and approved by residential leasing manager/fellow: Santhosh Conway, Russell Junior MD, personally reviewed the images and resident's/fellow's findings and agree with the final report.[facility] 1 Vw 2020-06-13 14:30:22 Interface, Radiology Results Incoming 06/13/2020 2:33 PM CST XR ABDOMEN 1 [...] unremarkable for age and lung bases appear clear.*1D2RAD_PS08[place] MuskmurcnHCML-HlI-9 (COVID-19) RNA [Presence] in Respiratory specimen by HELENA with probe [id number] 02:47:43 Test Item Value Reference Range Interpretation Comments SARS-CoV-2 (COVID-19) RNA Not detected Not-Detected [Presence] in Respiratory specimen by HELENA with probe detection (test code = 93756-3) SARS-CoV-2 (COVID-19) RNA [Presence] in Respiratory specimen by HELENA with probe [id number] 16:32:37 Test Item Value Reference Range Interpretation Comments SARS-CoV-2 (COVID-19) RNA Not detected Not-Detected [Presence] in Respiratory specimen by HELENA with probe detection (test code = 24884-1) SARS-CoV-2 (COVID-19) RNA [Presence] in Respiratory specimen by HELENA with probe [id number] 05:29:57 Test Item Value Reference Range Interpretation Comments SARS-CoV-2 (COVID-19) RNA Not detected Not-Detected [Presence] in Respiratory specimen by HELENA with probe detection (test code = 38276-7) CT Abdomen WWO Contrast, Pelvis W Eucfelvq7627-12-66 23:51:35Hm Interface, Radiology Results - 03/14/2020 11:54 [...] be reactive to gastroduodenitis.ADRENALS: Normal. KIDNEYS: Nonobstructive calc ulus is seen of interpolar right kidney. Left [...] normal. No gastrointestinal tract obstruction. Moderate wall th ickening/edema the distal stomach and proximal duodenum is [...] calculus is seen of right renal collecting system.[facility]-[id number] MethodistRAD, CHEST, 1 VIEW, NON [id number] 07:50:00Reason for exam:->SOBShould this be performed at the bedside?->Yes FINAL REPORT CLINICAL HISTORY: SOB TECHNIQUE: 1 view of the chest. COMPARISON: None IMPRESSION: There is pulmonary vascular congestion with prominent lung markings bilaterally. Subpulmonic pleural effusions cannot be excluded. The cardiomediastinal silhouette is magnified by technique. Signed: Franky Louis [facility] Hospitalort Verified Date/Time: 10/03/2018 07:50:47 Reading Location: [facility] Radiology Reading Room [id number] 07:37:00 Test Item Value Reference Range Interpretation Comments MAGNESIUM (BEAKER) (test code = 1.6 mg/dL 1.6-2.6 627) BASIC METABOLIC [id number] 07:37:00 Test Item Value Reference Range Interpretation [...] DIALYSIS PATIEN TS. Specimen slightly ictericHEPATIC FUNCTION [id number] 07:37:00 Test Item Value Reference Range Interpretation [...] 35 U/L 6-55 347) Specimen slightly ictericPROTHROMBIN TIME/[id number] 06:25:00 Test Item Value Reference Range Interpretation [...] mechanical heart valves.CBC W/PLT COUNT & AUTO [id number] 06:16:00 Test Item Value Reference Range Interpretation [...] = 3438) Received comment: User comments: Slide comments:[id number] 05:58:00 Test Item Value Reference Range Interpretation Comments MAGNESIUM (BEAKER) (test code = 1.6 mg/dL 1.6-2.6 627) BASIC METABOLIC [id number] 05:58:00 Test Item Value Reference Range Interpretation [...] DIALYSIS PATIEN TS. Specimen slightly ictericHEPATIC FUNCTION [id number] 05:58:00 Test Item Value Reference Range Interpretation [...] 39 U/L 6-55 347) Specimen slightly ictericPROTHROMBIN TIME/[id number] 05:26:00 Test Item Value Reference Range Interpretation [...] mechanical heart valves.CBC W/PLT COUNT & AUTO [id number] 05:20:00 Test Item Value Reference Range Interpretation [...] WBC 0-0 (test code = 413) VITAMIN [id number] 06:57:00 Test Item Value Reference Range Interpretation Comments VITAMIN B12 (BEAKER) (test code = 178 pg/mL 213-816 L 774) [id number] 06:57:00 Test Item Value Reference Range Interpretation Comments FERRITIN (BEAKER) (test code = 361) 21 ng/mL 5-275 FOLATE, [id number] 06:57:00 Test Item Value Reference Range Interpretation [...] 28 % 20-55 (test code = 2590) [id number] 05:59:00 Test Item Value Reference Range Interpretation Comments MAGNESIUM (BEAKER) (test code = 1.7 mg/dL 1.6-2.6 627) BASIC METABOLIC [id number] 05:59:00 Test Item Value Reference Range Interpretation [...] FOR DIALYSIS PATIEN TS. Specimen slightly ictericLIPID [id number] 05:59:00 Test Item Value Reference Range Interpretation [...] Very High >=190 Specimen slightly ictericHEPATIC FUNCTION [id number] 05:59:00 Test Item Value Reference Range Interpretation [...] = 41 U/L 6-55 347) Specimen slightly [id number] 05:59:00 Test Item Value Reference Range Interpretation Comments LIPASE (BEAKER) (test code = 749) 35 U/L 8-78 Specimen slightly ictericPROTHROMBIN TIME/[id number] 05:58:00 Test Item Value Reference Range Interpretation [...] mechanical heart valves.CBC W/PLT COUNT & AUTO [id number] 05:37:00 Test Item Value Reference Range Interpretation [...] ABSOLUTE COUNT 0.65 K/ L 1.18-3.74 L ([facility]) (test code = 414) MONOCYTES ABSOLUTE COUNT ([facility]) 0.24 K/ L 0.24-0.36 (test code = 415) EOSINOPHILS ABSOLUTE COUNT 0.12 K/ L 0.04-0.36 ([facility]) (test code = 416) BASOPHILS ABSOLUTE COUNT ([facility]) 0.02 K/ L 0.01-0.08 (test code = 417) IMMATURE GRANULOCYTES-RELATIVE 0 % 0-1 PERCENT ([facility]) (test code = 2801) POCT-HEMOGLOBIN [id number] 06:12:00 Test Item Value Reference Range Interpretation Comments POC-HEMOGLOBIN METER 8.6 g/dL 12.0-15.[address] [facility] 67[address] ([facility]) (test code = JOANNA BARAHONA [address] 1539)
[2020-09-27 02:29] LABS: Absolute Lymphocytes (CBC) 0.4 K/uL (0.7-4.9); Basophils % 0.6 % (0-1.3); Hematocrit 27.6 % (36.0-45.0); RBC Red Blood Cell Count 3.66 M/uL (3.86-4.86)
[2020-09-27 02:34] LABS: Protime INR 1.18
[2020-09-27 02:47] LABS: ALT/SGPT 34 U/L (12-78); AST/SGOT 35 U/L (15-37); Alkaline Phosphatase 165 U/L (45-117); BUN Blood Urea Nitrogen 11 mg/dL (7-18); Bicarbonate 26 mmol/L (21-32); Bilirubin Direct 0.6 mg/dL (0-0.2); Bilirubin Total 1.8 mg/dL (0.2-1.0); Glucose Level 102 mg/dL (74-106); Lipase 224 U/L (73-393); NT PRO-BNP 16 pg/mL (<125); Potassium 3.6 mmol/L (3.5-5.1); Protein, Total 6.8 g/dL (6.4-8.2); Sodium Level 141 mmol/L (136-145); Troponin (Emerg Dept Use Only) < 0.02 ng/mL (0.0-0.045)
[2020-09-27 02:54] LABS: Platelet Estimate DECR; White Blood Cell Scan OK (OK)
[2020-09-27 02:55] LABS: Anisocytosis 1+; Blood Morphology Comment NOTED (NOT SEEN); Hypochromasia 2+; Ovalocytes 1+
[2020-09-27] MEDS ORDERED: ONDANSETRON 4 MG/2 ML VIAL ONE (03:21)
[2020-09-27] MEDS ORDERED: FENTANYL CITR 100 MCG/2 ML ONE ×2 (03:21→05:51)
[2020-09-27 03:33] LABS: Urine Blood Negative (Negative); Urine Glucose Negative (Negative); Urine Protein Negative (Negative); Urine Specific Gravity >=1.030 (1.005-1.030); Urine pH 6.5 (5.0-7.0)
[2020-09-27] MEDS ORDERED: metroNIDAZOLE 500 MG TABLET ONE (06:01)
[2020-09-27] MEDS ORDERED: CEFTRIAXONE/SWI 1gm 1 GM/10 ML SYR ONE (06:01)
--- NOTE | 2020-09-27 06:06 | ER ---
Nurse's Notes [facility] Name: Zenaida Goss Age: 60 yrs Sex: Female : 1960 Arrival Date: 09/27/2020 Time: 01:21 Bed 6 Private MD: Diagnosis: Colitis;Peripheral Edema Presentation: 09/27 01:39 Chief complaint: Patient states: she has had abdominal cramping with diarrhea x 5 days bb and bilateral lower leg swelling. Coronavirus screen: At this time, the client does not indicate any symptoms associated with coronavirus-19. Ebola Screen: No symptoms or risks identified at this time. Initial Sepsis Screen: Does the patient meet any 2 criteria? No. Patient's initial sepsis screen is negative. Does the patient have a suspected source of infection? No. Patient's initial sepsis screen is negative. Risk Assessment: Do you want to hurt yourself or someone else? Patient reports no desire to harm self or others. Onset of symptoms was September 21, 2020. 01:39 Method Of Arrival: Ambulatory bb 01:39 Acuity: TANK 3 bb Historical: - Allergies: 01:42 Dilaudid; bb 01:42 Morphine (Anaphylaxis); bb - Home Meds: 01:42 Furosemide Oral [Active]; bb - PMHx: 01:42 Anemia; breast cancer; Cirrhosis; fatty liver; Pancreatitis; varices; bb - PSHx: 01:42 Appendectomy; Cholecystectomy; Hysterectomy; Lumpectomy; bb - Immunization history:: Adult Immunizations up to date. - Social history:: Smoking status: unknown. Screenin:47 Abuse screen: Denies threats or abuse. Nutritional screening: No deficits noted. jb4 Tuberculosis screening: No symptoms or risk factors identified. Fall Risk None identified. Assessment: 01:47 General: Appears in no apparent distress. uncomfortable, Behavior is calm, cooperative, jb4 appropriate for age. Pain: Complains of pain in abdomen, right leg and left leg Pain does not radiate. Pain currently is 8 out of 10 on a pain scale. Neuro: Level of Consciousness is awake, alert, obeys commands, Oriented to person, place, time, situation. Cardiovascular: Patient's skin is warm and dry. Respiratory: Airway is patent Respiratory effort is even, unlabored, Respiratory pattern is regular, symmetrical. GI: Abdomen is non-distended, obese, Reports lower abdominal pain, upper abdominal pain, cramping, diarrhea. : No signs and/or symptoms were reported regarding the genitourinary system. EENT: No signs and/or symptoms were reported regarding the EENT system. Derm: Skin is intact, Skin is pink, warm \T\ dry. Musculoskeletal: Circulation, motion, and sensation intact. Range of motion: intact in all extremities. 03:00 Reassessment: Patient appears in no apparent distress at this time. Patient and/or jb4 family updated on plan of care and expected duration. Pain level reassessed. Patient is alert, oriented x 3, equal unlabored respirations, skin warm/dry/pink. 04:00 Reassessment: Patient appears in no apparent distress at this time. Patient and/or jb4 family updated on plan of care and expected duration. Pain level reassessed. Patient is alert, oriented x 3, equal unlabored respirations, skin warm/dry/pink. 05:00 Reassessment: Patient appears in no apparent distress at this time. Patient and/or jb4 family updated on plan of care and expected duration. Pain level reassessed. Patient is alert, oriented x 3, equal unlabored respirations, skin warm/dry/pink. 05:20 Reassessment: Pt reports an increase in pain, provider notified, see MAR for orders. jb4 Vital Signs: 01:39 BP 142 / 47; Pulse 102; Resp 24 S; Temp 98.4(O); Pulse Ox 98% on R/A; Weight 115.67 kg bb (R); Height 5 ft. 4 in. (162.56 cm) (R); Pain 9/10; 03:15 BP 153 / 69; Pulse 98; Resp 20; Pulse Ox 98% on R/A; jb4 05:15 BP 115 / 51; Pulse 94; Resp 16; Pulse Ox 98% on R/A; jb4 06:12 BP 119 / 62; Pulse 89; Resp 20; Pulse Ox 100% on R/A; ak2 01:39 Body Mass Index 43.77 (115.67 kg, 162.56 cm) ED Course: 01:21 Patient arrived in ED. am4 01:34 Aayush Alfaro MD is Attending Physician. 7 01:41 Triage completed. bb 01:42 Arm band placed on Patient placed in an exam room, on a stretcher, on pulse oximetry. bb 01:47 Gilberto Hoang, RN is Primary Nurse. jb4 01:47 Patient has correct armband on for positive identification. Bed in low position. Call jb4 light in reach. Side rails up X 1. Pulse ox on. NIBP on. 02:23 Inserted saline lock: 20 gauge in left antecubital area, using aseptic technique. Blood tt3 collected. 02:23 Initial lab(s) drawn, by me, sent to lab. tt3 02:29 XRAY Chest (1 view) In Process Unspecified. EDMS 02:32 EKG done, by ED staff, reviewed by Aayush Alfaro MD. tt3 04:57 CT Abd/Pelvis - IV Contrast Only In Process Unspecified. EDMS 06:04 Dionne Zhao MD is Referral Physician. 7 06:12 No provider procedures requiring assistance completed. IV discontinued. ak2 Administered Medications: 03:19 Drug: Zofran (Ondansetron) 4 mg Route: IVP; Site: left antecubital; jb4 03:45 Follow up: Response: No adverse reaction; Marked relief of symptoms; Nausea is decreasedjb4 03:21 Drug: fentaNYL (PF) 50 mcg Route: IVP; Site: left antecubital; jb4 03:45 Follow up: Response: No adverse reaction; Marked relief of symptoms; Pain is decreased; jb4 RASS: Alert and Calm (0) 05:33 Drug: fentaNYL (PF) 50 mcg Route: IVP; Site: left antecubital; jb4 05:51 Follow up: Response: No adverse reaction; Marked relief of symptoms; Pain is decreased; jb4 RASS: Alert and Calm (0) 05:45 Drug: Rocephin (cefTRIAXone) 1 grams Route: IV; Rate: per protocol; Site: left jb4 antecubital; 05:48 Follow up: Response: No adverse reaction; IV Status: Completed infusion; IV Intake: [id number] 05:45 Drug: Flagyl (metroNIDAZOLE) 500 mg Route: PO; jb4 Intake: 05:48 IV: 10ml; Total: 10ml. jb4 Outcome: 06:05 Discharge ordered by . 7 06:12 Discharged to home ambulatory. ak2 06:12 Condition: good 06:12 Discharge instructions given to Prescriptions given X 06:13 Patient left the ED. ak2 Signatures: Dispatcher [employer] EDJolene Gayle RN RN bb Bryson, James, RN RN jb4 Holmes, Maurice, MD MD mh7 Jose Valenzuela3 Komal Abbasi Anthony ak2
--- NOTE | 2020-09-27 06:06 | EDPHYS ---
Physician Documentation [facility] Name: Zenaida Goss Age: 60 yrs Sex: Female : 1960 Arrival Date: 09/27/2020 Time: 01:21 Bed 6 Private MD: ED Physician Aayush Alfaro HPI: 09/27 02:23 This 60 yrs old Female presents to ER via Ambulatory with complaints of mh7 Diarrhea, Feet Swelling, Leg Swelling. 02:23 The patient presents to the emergency department with diarrhea, that is intermittent, mh7 abdominal pain, of the epigastric area, described as crampy, and does not radiate. Onset: The symptoms/episode began/occurred 1 week(s) ago. Possible causes: unknown. The symptoms are aggravated by nothing. The symptoms are alleviated by nothing. Associated signs and symptoms: Pertinent negatives: anorexia, belching, constipation, dysuria, fever, flatulence, GI bleeding, hematuria, nausea, vaginal discharge, vomiting. Severity of symptoms: At their worst the symptoms were moderate 5 day(s) ago, in the emergency department the symptoms are unchanged. Historical: - Allergies: 01:42 Dilaudid; bb 01:42 Morphine (Anaphylaxis); bb - Home Meds: 01:42 Furosemide Oral [Active]; bb - PMHx: 01:42 Anemia; breast cancer; Cirrhosis; fatty liver; Pancreatitis; varices; bb - PSHx: 01:42 Appendectomy; Cholecystectomy; Hysterectomy; Lumpectomy; bb - Immunization history:: Adult Immunizations up to date. - Social history:: Smoking status: unknown. ROS: 02:23 Constitutional: Negative for fever, chills, and weight loss, Eyes: Negative for injury, mh7 pain, redness, and discharge, ENT: Negative for injury, pain, and discharge, Neck: Negative for injury, pain, and swelling, Cardiovascular: Negative for chest pain, palpitations, and edema, Respiratory: Negative for shortness of breath, cough, wheezing, and pleuritic chest pain, Back: Negative for injury and pain, : Negative for injury, bleeding, discharge, and swelling. 02:23 Skin: Negative for injury, rash, and discoloration, Neuro: Negative for headache, weakness, numbness, tingling, and seizure, Psych: Negative for depression, anxiety, suicide ideation, homicidal ideation, and hallucinations, Allergy/Immunology: Negative for hives, rash, and allergies, Endocrine: Negative for neck swelling, polydipsia, polyuria, polyphagia, and marked weight changes, Hematologic/Lymphatic: Negative for swollen nodes, abnormal bleeding, and unusual bruising. 02:23 MS/extremity: Positive for swelling. Exam: 02:23 Constitutional: This is a well developed, well nourished patient who is awake, alert, mh7 and in no acute distress. Head/Face: Normocephalic, atraumatic. Eyes: Pupils equal round and reactive to light, extra-ocular motions intact. Lids and lashes normal. Conjunctiva and sclera are non-icteric and not injected. Cornea within normal limits. Periorbital areas with no swelling, redness, or edema. Neck: Trachea midline, no thyromegaly or masses palpated, and no cervical lymphadenopathy. Supple, full range of motion without nuchal rigidity, or vertebral point tenderness. No Meningismus. Chest/axilla: Normal chest wall appearance and motion. Nontender with no deformity. No lesions are appreciated. Cardiovascular: Regular rate and rhythm with a normal S1 and S2. No gallops, murmurs, or rubs. Normal PMI, no JVD. No pulse deficits. Respiratory: Lungs have equal breath sounds bilaterally, clear to auscultation and percussion. No rales, rhonchi or wheezes noted. No increased work of breathing, no retractions or nasal flaring. 02:23 Back: No spinal tenderness. No costovertebral tenderness. Full range of motion. Skin: Warm, dry with normal turgor. Normal color with no rashes, no lesions, and no evidence of cellulitis. 02:23 Cardiovascular: Edema: pedal edema, that is mild, bilateral lower extremities. 02:23 Abdomen/GI: Inspection: obese scar(s), are noted in the right upper quadrant, Bowel sounds: normal, in all quadrants, Palpation: moderate abdominal tenderness, in the epigastric area, mass, is not appreciated, rebound tenderness, is not appreciated, voluntary guarding, is not appreciated, involuntary guarding, is not appreciated, no appreciated organomegaly, Rectal exam: the exam is deferred, because of patient request, Indicators: McBurney's point is not tender, Manriquez's sign is negative, Rovsing's sign is negative, Obturator sign is negative, Psoas sign is negative, Liver: is enlarged, Hernia: not appreciated. 02:23 Musculoskeletal/extremity: Extremities: all appear grossly normal, with no appreciated pain with palpation, ROM: intact in all extremities, Circulation is intact in all extremities. Sensation intact. Compartment Syndrome exam of affected extremity: is normal. no pain, no numbness, no tingling, no sensation deficit, no palor, no weak pulses, Joints: All joints appear normal with full range of motion. Weight bearing: able to fully bear weight, without difficulty, Tendon exam: specific tendon testing normal through active and passive range of motion Vital Signs: 01:39 BP 142 / 47; Pulse 102; Resp 24 S; Temp 98.4(O); Pulse Ox 98% on R/A; Weight 115.67 kg bb (R); Height 5 ft. 4 in. (162.56 cm) (R); Pain 9/10; 03:15 BP 153 / 69; Pulse 98; Resp 20; Pulse Ox 98% on R/A; jb4 05:15 BP 115 / 51; Pulse 94; Resp 16; Pulse Ox 98% on R/A; jb4 06:12 BP 119 / 62; Pulse 89; Resp 20; Pulse Ox 100% on R/A; ak2 01:39 Body Mass Index 43.77 (115.67 kg, 162.56 cm) bb MDM: 06:02 Differential diagnosis: Nonspecific abd pain, gastritis, pancreatitis, diverticulitis, mh7 viral gastroenteritis, gastroenteritis. Data reviewed: vital signs, nurses notes, lab test result(s), CBC, electrolytes, urinalysis, radiologic studies, CT scan. Data interpreted: Pulse oximetry: on room air is 98 %. Interpretation: normal. Counseling: I had a detailed discussion with the patient and/or guardian regarding: the historical points, exam findings, and any diagnostic results supporting the discharge/admit diagnosis, lab results, radiology results, the need for outpatient follow up, to return to the emergency department if symptoms worsen or persist or if there are any questions or concerns that arise at home. Response to treatment: the patient's symptoms have resolved after treatment, the patient's blood pressure is in an acceptable range, mental status has returned to baseline, the patient no longer shows bradycardia, the patient is not short of breath, the patient is not tachycardic, the patient's pain is gone, the patient's temperature has normalized. 06:05 Patient medically screened. [facility] 09/27 02:12 Order name: Basic Metabolic Panel [facility] 09/27 02:12 Order name: CBC with Diff [facility] 09/27 02:12 Order name: LFT's [facility] 09/27 02:12 Order name: Magnesium [facility] 09/27 02:12 Order name: NT PRO-BNP; Complete Time: 02:51 [facility] 09/27 02:12 Order name: PT-INR; Complete Time: 02:51 [facility] 09/27 02:12 Order name: Troponin (emerg Dept Use Only); Complete Time: 02:51 [facility] 09/27 02:12 Order name: Lipase; Complete Time: 02:51 [facility] 09/27 02:12 Order name: Basic Metabolic Panel; Complete Time: 02:51 [facility] 09/27 02:13 Order name: CBC with Automated Diff; Complete Time: 03:01 [facility] 09/27 02:13 Order name: Liver (Hepatic) Function; Complete Time: 02:51 [facility] 09/27 02:13 Order name: Magnesium; Complete Time: 02:51 [facility] 09/27 02:32 Order name: CBC Smear Scan; Complete Time: 03:01 [facility] 09/27 03:33 Order name: Urine Dipstick-Ancillary; Complete Time: 04:01 [facility] 09/27 02:12 Order name: XRAY Chest (1 view) [facility] 09/27 02:12 Order name: EKG; Complete Time: 02:13 [facility] 09/27 02:12 Order name: Cardiac monitoring; Complete Time: 02: [facility] 09/27 02:12 Order name: EKG - Nurse/Tech; Complete Time: 02: [facility] 09/27 02:12 Order name: IV Saline Lock; Complete Time: 02: [facility] 09/27 02:12 Order name: Labs collected and sent; Complete Time: 02: [facility] 09/27 02:12 Order name: O2 Per Protocol; Complete Time: 02: [facility] 09/27 02:12 Order name: O2 Sat Monitoring; Complete Time: 02: [facility] 09/27 02:14 Order name: Urine Dipstick-Ancillary (obtain specimen); Complete Time: 03:35 [facility] 09/27 04:12 Order name: CT Abd/Pelvis - IV Contrast Only [facility] Administered Medications: 03:19 Drug: Zofran (Ondansetron) 4 mg Route: IVP; Site: left antecubital; jb4 03:45 Follow up: Response: No adverse reaction; Marked relief of symptoms; Nausea is decreasedjb4 03:21 Drug: fentaNYL (PF) 50 mcg Route: IVP; Site: left antecubital; jb4 03:45 Follow up: Response: No adverse reaction; Marked relief of symptoms; Pain is decreased; [facility] RASS: Alert and Calm (0) 05:33 Drug: fentaNYL (PF) 50 mcg Route: IVP; Site: left antecubital; 4 05:51 Follow up: Response: No adverse reaction; Marked relief of symptoms; Pain is decreased; 4 RASS: Alert and Calm (0) 05:45 Drug: Rocephin (cefTRIAXone) 1 grams Route: IV; Rate: per protocol; Site: left 4 antecubital; 05:48 Follow up: Response: No adverse reaction; IV Status: Completed infusion; IV Intake: [id number] 05:45 Drug: Flagyl (metroNIDAZOLE) 500 mg Route: PO; 4 Disposition: 09/27/20 06:05 Discharged to Home. Impression: Colitis, Peripheral Edema. - Condition is Stable. - Discharge Instructions: Colitis, Peripheral Edema. - Prescriptions for Bentyl 20 mg Oral Tablet - take 1 tablet by ORAL route every 6 hours As needed; 20 tablet. Flagyl 500 mg Oral Tablet - take 1 tablet by ORAL route every 8 hours for 7 days; 21 tablet. Cipro 500 mg Oral Tablet - take 1 tablet by ORAL route every 12 hours for 7 days; 14 tablet. - Medication Reconciliation Form, Thank You Letter, Antibiotic Education, Prescription Opioid Use form. - Follow up: Private Physician; When: 1 - 2 days; Reason: Worsening of condition, Recheck today's complaints, Continuance of care, Re-evaluation by your physician. Follow up: Doinne Zhao MD; When: 1 - 2 days; Reason: Worsening of condition, Recheck today's complaints. - Problem is new. - Symptoms have improved. Signatures: Dispatcher [employer] EDJolene Gayle RN Gilberto Butt RN RN jb4 Aayush Alfaro MD MD mh7 Kike Vee ak2 Corrections: (The following items were deleted from the chart) 06:13 06:05 09/27/2020 06:05 Discharged to Home. Impression: Colitis; Peripheral Edema. ak2 Condition is Stable. Forms are Medication Reconciliation Form, Thank You Letter, Antibiotic Education, Prescription Opioid Use. Follow up: Private Physician; When: 1 - 2 days; Reason: Worsening of condition, Recheck today's complaints, Continuance of care, Re-evaluation by your physician. Follow up: Dionne Zhao; When: 1 - 2 days; Reason: Worsening of condition, Recheck today's complaints. Problem is new. Symptoms have improved. mh7
[2020-09-27 06:36] VITALS: TEMP 98.4
[2020-09-27 06:39] VITALS: BP 119/62; O2SAT 100
--- NOTE | 2020-09-27 07:47 | RAD REPORT ---
EXAM DESCRIPTION: Igor Single View09/27/2020 2:30 am CLINICAL HISTORY: Abdominal pain COMPARISON: August 2020 FINDINGS: The lungs appear clear of acute infiltrate. The heart is normal size IMPRESSION: No acute abnormalities displayed
--- NOTE | 2020-09-27 09:44 | EKG ---
Test Date: 2020-09-27 Test Time: 02:29:07 Structural Ironworker: TLT MEASUREMENT RESULTS: Intervals: Rate: 90 AK: 138 QRSD: 136 QT: 458 QTc: 560 [place]ley: P: 44 AK: 138 QRS: 122 T: 8 INTERPRETIVE STATEMENTS: Normal sinus rhythm Right bundle branch block Left posterior fascicular block Bifascicular block Abnormal ECG Compared to ECG 07/22/2020 15:23:09 Left posterior fascicular block now present Bifascicular block now present Atrial premature complex(es) no longer present Electronically Signed On 09-27-20 09:43:28 CDT by Miguel Crenshaw
--- NOTE | 2020-09-28 20:10 | RAD REPORT ---
EXAM DESCRIPTION: CT - Abdomen Pelvis W Contrast - 09/27/2020 6:19 am CLINICAL HISTORY: The patient is 60 years old and is Female; diarrhea;Abd pain TECHNIQUE: Axial computed tomography images of the abdomen and pelvis with intravenous contrast. S agittal and coronal reformatted images were created and reviewed. This CT exam was performed using one or more of the following dose reduction techniques: automated exposure control, adjustment of t he mA and/or kV according to patient size, and/or use of iterative reconstruction technique. COMPARISON: CT abdomen and pelvis August 31, 2020. FINDINGS: Lung bases: Unremarkable. No mass. No consolidation. ABDOMEN: Liver: Cirrhotic appearance to the liver. Gallbladder and bile ducts: The gallbladder is surgically absent. No ductal dilation. Pancreas: Unremarkable. No mass. No ductal dilation. Spleen: Splenomegaly. Adrenals: Unremarkable. No mass. Kidneys and ureters: Unremarkable. No solid mass. No hydronephrosis. Stomach and bowel: Suggestion of bowel wall thickening and fat stranding around the left colon. No obstruction. PELVIS: Appendix: No findings to suggest acute appendicitis. Bladder: Bladder is collapsed. Reproductive: Uterus is not visualized. ABDOMEN and PELVIS: Intraperitoneal space: Unremarkable. No free air. No significant fluid collection. Scattered areas of fat stranding. Bones/joints: No acute fracture. No dislocation. Soft tissues: Unremarkable. Vasculature: Scattered intra-abdominal varices. No abdominal aortic aneurysm. Lymph nodes: Unremarkable. No enlarged lymph nodes. IMPRESSION: 1. Cirrhotic appearance to the liver. 2. The gallbladder is surgically absent. 3. Splenomegaly. 4. Suggestion of bowel wall thickening and fat stranding around the left colon. Findings are sugges tive of Electronically signed by: Handy Wolf MD 09/27/2020 5:18 AM CDT Due to temporary technical issues with the PACS/Fluency reporting system, reports are being signed by the in house radiologists without review as a courtesy to insure prompt reporting. The interpreting radiologist is fully responsible for the content of the report.
== END 2020-09-27 06:13 | disposition home or self-care (01) ==
LOC: ER 01:15
DX: K52.9 Noninfective gastroenteritis and colitis, unspecified (principal); R60.9 Edema, unspecified; Z88.5 Allergy status to narcotic agent; Z85.3 Personal history of malignant neoplasm of breast
CPT/HCPCS: 93005; 85025; 80048; 36415; 83735; 85610; 80076; 81003; 84484; 83690; 83880; 74177; 71045; Q9967; J3010 ×2; J0696; J2405; 96374; 96375; 99284

== ENCOUNTER 2021-01-01 02:42 | Observation (INO) | payer OTHER ==
[2021-01-01 03:16] LABS: Urine Blood Negative (Negative); Urine Glucose Negative (Negative); Urine Protein Negative (Negative); Urine Specific Gravity 1.025 (1.005-1.030); Urine pH 7.5 (5.0-7.0)
[2021-01-01 03:57] LABS: Absolute Lymphocytes (CBC) 0.5 K/uL (0.7-4.9); Basophils % 0.6 % (0-1.3); Hematocrit 29.3 % (36.0-45.0); Lymphocytes % 22.9 % (15.3-44.8); MPV 7.6 fL (7.6-11.3); Protime INR 1.17; RBC Red Blood Cell Count 3.28 M/uL (3.86-4.86)
[2021-01-01 04:06] LABS: ALT/SGPT 46 U/L (12-78); AST/SGOT 45 U/L (15-37); Albumin 3.1 g/dL (3.4-5.0); Alkaline Phosphatase 161 U/L (45-117); BUN Blood Urea Nitrogen 10 mg/dL (7-18); Bicarbonate 27 mmol/L (21-32); Bilirubin Direct 0.5 mg/dL (0-0.2); Bilirubin Total 1.3 mg/dL (0.2-1.0); Glucose Level 102 mg/dL (74-106); Lipase 281 U/L (73-393); Protein, Total 6.6 g/dL (6.4-8.2); Sodium Level 143 mmol/L (136-145)
[2021-01-01] MEDS ORDERED: FENTANYL CITR 100 MCG/2 ML ONE ×2 (04:15→17:14)
[2021-01-01] MEDS ORDERED: ONDANSETRON 4 MG/2 ML VIAL ONE (04:17)
[2021-01-01] MEDS ORDERED: NA CHLORIDE 0.9% 1,000 ML ONE ×2 (04:17→10:02)
[2021-01-01] MEDS ORDERED: CEFTRIAXONE 1000 MG/VIAL ONE (04:17)
--- NOTE | 2021-01-01 04:32 | EDPHYS ---
Physician Documentation [facility] Name: Zenaida Goss Age: 60 yrs Sex: Female : 1960 Arrival Date: 01/01/2021 Time: 02:45 Bed 13 Private MD: KARI Physician Homero Terrell HPI: 01/01 04:23 This 60 yrs old Female presents to ER via Ambulatory with complaints of vicente Abdominal Cramping, Back Pain. 04:23 The patient presents with abdominal pain in the epigastric area, in the upper abdomen, vicente abdominal distention in the upper abdomen, in the lower abdomen. Onset: The symptoms/episode began/occurred 14 day(s) ago. The symptoms do not radiate. Associated signs and symptoms: none. The symptoms are described as constant, crampy. Modifying factors: The symptoms are alleviated by nothing, the symptoms are aggravated by nothing. Severity of pain: At its worst the pain was moderate in the emergency department the pain is unchanged. The patient has not experienced similar symptoms in the past. Historical: - Allergies: 02:56 Dilaudid; df1 02:56 Morphine (Anaphylaxis); df1 - Home Meds: 02:58 Lactulose Oral once daily [Active]; Furosemide Oral [Active]; df1 - PMHx: 02:56 Anemia; Cirrhosis; breast cancer; Pancreatitis; fatty liver; varices; df1 - PSHx: 02:56 Lumpectomy of breast; Total abdominal hysterectomy; Appendectomy; Cholecystectomy; df1 - Immunization history:: Adult Immunizations up to date, Client reports receiving the 2nd dose of the Covid vaccine. - Social history:: Smoking status: Patient denies any tobacco usage or history of. Patient uses Patient/guardian denies using. - Family history:: not pertinent. ROS: 04:23 Constitutional: Negative for fever, chills, and weight loss, Eyes: Negative for injury, vicente pain, redness, and discharge, ENT: Negative for injury, pain, and discharge, Neck: Negative for injury, pain, and swelling, Cardiovascular: Negative for chest pain, palpitations, and edema, Respiratory: Negative for shortness of breath, cough, wheezing, and pleuritic chest pain, Back: Negative for injury and pain, : Negative for injury, bleeding, discharge, and swelling, MS/Extremity: Negative for injury and deformity, Skin: Negative for injury, rash, and discoloration, Neuro: Negative for headache, weakness, numbness, tingling, and seizure, Psych: Negative for depression, anxiety, suicide ideation, homicidal ideation, and hallucinations, Allergy/Immunology: Negative for hives, rash, and allergies, Endocrine: Negative for neck swelling, polydipsia, polyuria, polyphagia, and marked weight changes, Hematologic/Lymphatic: Negative for swollen nodes, abnormal bleeding, and unusual bruising. 04:23 Abdomen/GI: Positive for abdominal pain, nausea, vomiting, abdominal cramps, of the epigastric area, right upper quadrant and left upper quadrant. Exam: 04:23 Constitutional: This is a well developed, well nourished patient who is awake, alert, vicente and in no acute distress. Head/Face: Normocephalic, atraumatic. Eyes: Pupils equal round and reactive to light, extra-ocular motions intact. Lids and lashes normal. Conjunctiva and sclera are non-icteric and not injected. Cornea within normal limits. Periorbital areas with no swelling, redness, or edema. ENT: Nares patent. No nasal discharge, no septal abnormalities noted. Tympanic membranes are normal and external auditory canals are clear. Oropharynx with no redness, swelling, or masses, exudates, or evidence of obstruction, uvula midline. Mucous membranes moist. Neck: Trachea midline, no thyromegaly or masses palpated, and no cervical lymphadenopathy. Supple, full range of motion without nuchal rigidity, or vertebral point tenderness. No Meningismus. Chest/axilla: Normal chest wall appearance and motion. Nontender with no deformity. No lesions are appreciated. Cardiovascular: Regular rate and rhythm with a normal S1 and S2. No gallops, murmurs, or rubs. Normal PMI, no JVD. No pulse deficits. Respiratory: Lungs have equal breath sounds bilaterally, clear to auscultation and percussion. No rales, rhonchi or wheezes noted. No increased work of breathing, no retractions or nasal flaring. Back: No spinal tenderness. No costovertebral tenderness. Full range of motion. Female : Normal external genitalia. Skin: Warm, dry with normal turgor. Normal color with no rashes, no lesions, and no evidence of cellulitis. MS/ Extremity: Pulses equal, no cyanosis. Neurovascular intact. Full, normal range of motion. Neuro: Awake and alert, GCS 15, oriented to person, place, time, and situation. Cranial nerves II-XII grossly intact. Motor strength 5/5 in all extremities. Sensory grossly intact. Cerebellar exam normal. Normal gait. Psych: Awake, alert, with orientation to person, place and time. Behavior, mood, and affect are within normal limits. 04:23 Abdomen/GI: Inspection: abdomen appears normal, Bowel sounds: normal, Palpation: mild abdominal tenderness, in the epigastric area, right upper quadrant and left upper quadrant, Liver: tenderness, that is mild, Hernia: not appreciated. 04:29 ECG was reviewed by the Attending Physician. vciente Vital Signs: 02:53 BP 142 / 70; Pulse 84; Resp 18; Temp 99.0; Pulse Ox 100% on R/A; Weight 118.84 kg; df1 Height 5 ft. 4 in. (162.56 cm); Pain 9/10; 03:47 BP 146 / 82; Pulse 81; Resp 17; Pulse Ox 97% ; Pain 8/10; dc2 05:31 BP 123 / 63; Pulse 80; Resp 18; Temp 98.4; Pulse Ox 100% on R/A; mr2 05:33 Pain 4/10; mr2 02:53 Body Mass Index 44.97 (118.84 kg, 162.56 cm) df1 MDM: 03:17 Patient medically screened. vicente 04:26 Differential diagnosis: bowel obstruction, gastritis, myocardia ischemia or infarction, vicente non-specific abd pain, pancreatitis, Peptic Ulcer Disease, Pyelonephritis, urinary tract infection. Data reviewed: vital signs, nurses notes, lab test result(s), EKG, radiologic studies, plain films. Data interpreted: residential monitor: rate is 81 beats/min, rhythm is regular. Test interpretation: by ED physician or midlevel provider: ECG, plain radiologic studies. Counseling: I had a detailed discussion with the patient and/or guardian regarding: the historical points, exam findings, and any diagnostic results supporting the discharge/admit diagnosis, lab results, radiology results, the need for further work-up and treatment in the hospital. 01/01 03:08 Order name: Basic Metabolic Panel 01/01 03:08 Order name: CBC with Diff 01/01 03:08 Order name: Hepatic Function 01/01 03:08 Order name: Lipase 01/01 03:09 Order name: Basic Metabolic Panel [facility] 01/01 03:09 Order name: Liver (Hepatic) Function [facility] 01/01 03:09 Order name: Lipase [facility] 01/01 03:15 Order name: Urine Dipstick-Ancillary; Complete Time: 03:44 [facility] 01/01 03:18 Order name: AMMONIA; Complete Time: 04:30 01/01 03:18 Order name: Protime (+inr) 01/01 03:18 Order name: Ptt, Activated 01/01 04:39 Order name: CBC Smear Scan [facility] 01/01 04:59 Order name: Troponin (Emerg Dept Use Only) [facility] 01/01 04:21 Order name: Chest Single View XRAY [facility] 01/01 06:31 Order name: COVID-19 : Document "Date of Symptom Onset" if Symptomatic. 01/01 07:21 Order name: CORONAVIRUS [facility] 01/01 07:28 Order name: Amylase [facility] 01/01 07:30 Order name: Ammonia [facility] 01/01 07:58 Order name: CT EDKY 01/01 07:59 Order name: RAD [facility] 01/01 08:19 Order name: SARS-COV-2 RT PCR [facility] 01/01 12:58 Order name: Glucose, Ancillary Testing [facility] 01/01 17:30 Order name: Glucose, Ancillary Testing [facility] 01/01 03:08 Order name: IV Saline Lock; Complete Time: 03:49 01/01 03:08 Order name: Labs collected and sent; Complete Time: 03:49 01/01 03:08 Order name: Urine Dipstick-Ancillary (obtain specimen); Complete Time: 03:30 01/01 03:45 Order name: EKG; Complete Time: 03:46 [facility] 01/01 03:45 Order name: EKG - Nurse/Tech; Complete Time: 04:06 [facility] EC:29 Rate is 81 beats/min. Rhythm is regular. QRS [place] is Normal. IA interval is normal. QRS vicente interval is normal. QT interval is normal. No Q waves. T waves are Normal. No ST changes noted. Clinical impression: NSR w/ Non-specific ST/T Changes and No evidence of ischemia. Interpreted by me. Reviewed by me. Administered Medications: 04:00 Drug: fentaNYL (PF) 25 mcg Route: IVP; Site: left antecubital; mr2 04:00 Drug: Rocephin (cefTRIAXone) 1 grams Route: IV; Rate: per protocol; Site: left mr2 antecubital; 04:00 Drug: Zofran (Ondansetron) 4 mg Route: IVP; Site: left antecubital; mr2 04:00 Drug: NS 0.9% 1000 ml Route: IV; Rate: 125 ml/hr; Infused Over: 10 hrs; Site: left mr2 antecubital; 04:08 Drug: Pepcid (famotidine) 20 mg Route: IVP; Site: left antecubital; mr2 04:39 Drug: fentaNYL (PF) 25 mcg Route: IVP; Site: left antecubital; mr2 04:50 Drug: Lactulose 30 grams Volume: 45 ml; Route: PO; dc2 Disposition Summary: 01/01/21 04:32 Hospitalization Ordered Hospitalization Status: Inpatient Admission vicente Provider: Dre Duran cha Condition: Stable vicente Problem: new vicente Symptoms: have improved vicente Bed/Room Type: Standard vicente Location: [facility] ER HOLD(01/01/21 08:38) iw Room Assignment: ERHOLD-(01/01/21 08:38) Diagnosis - Other cirrhosis of liver - ANAYA vicente - Abdominal tenderness vicente - UTI/ Urinary tract infection, site not specified vicente - Encephalopathy, unspecified vicente Forms: - Medication Reconciliation Form vicente - SBAR form vicente Signatures: Dispatcher [employer] EDHomero Padilla MD MD cha Munoz, Edgar, RN RN em Williams, Irene, RN RN Pan Anaya RN RN 2 Denise Dias df1 Loraine, ERIC Beatty RN dc2 Corrections: (The following items were deleted from the chart) 04:59 04:21 TROPONIN (EMERG DEPT USE ONLY)+C.LAB.BRZ ordered. EDKY EDKY 08:38 04:32 Telemetry/MedSurg (Inpatient) vicente iw 08:38 04:32 vicente
--- NOTE | 2021-01-01 04:32 | ER ---
Nurse's Notes [facility] Name: Zenaida Goss Age: 60 yrs Sex: Female : 1960 Arrival Date: 01/01/2021 Time: 02:45 Bed 13 Private MD: Diagnosis: Other cirrhosis of liver-ANAYA;Abdominal tenderness;UTI/ Urinary tract infection, site not specified;Encephalopathy, unspecified Presentation: 01/01 02:53 Chief complaint: Patient states: lower abd/back pain x 3 days. Burning with urination x df1 1 with nausea. Coronavirus screen: Vaccine status: Patient reports receiving the 2nd dose of the covid vaccine. Client denies travel out of the [place] in the last 14 days. The client reports previous COVID testing was negative. Date of collection: November 2020. Ebola Screen: Patient negative for fever greater than or equal to 101.5 degrees Fahrenheit, and additional compatible Ebola Virus Disease symptoms. Initial Sepsis Screen: Does the patient meet any 2 criteria? No. Patient's initial sepsis screen is negative. Risk Assessment: Do you want to hurt yourself or someone else? Patient reports no desire to harm self or others. Onset of symptoms was 2020. Onset of symptoms was December 29, 2020. 02:53 Method Of Arrival: Ambulatory df1 02:53 Acuity: TANK 3 df1 03:15 Initial Sepsis Screen: Does the patient have a suspected source of infection? No. dc2 Patient's initial sepsis screen is negative. Triage Assessment: 03:00 Pain: Complains of pain in Lower back pain that radiates to both sides and into pelvic dc2 area. Describes the back pain as pressure and the front pain as cramping. PRS 8/10. Pain currently is 8 out of 10 on a pain scale. Quality of pain is described as crampy, and pressure. GI: Abdomen is obese, with large scarring. Reports lower abdominal pain, cramping. 03:00 General: Behavior is calm, cooperative. dc2 03:20 General: Appears in no apparent distress. comfortable, obese, well groomed, well dc2 developed, well nourished. Neuro: No deficits noted. Historical: - Allergies: 02:56 Dilaudid; df1 02:56 Morphine (Anaphylaxis); df1 - Home Meds: 02:58 Lactulose Oral once daily [Active]; Furosemide Oral [Active]; df1 - PMHx: 02:56 Anemia; Cirrhosis; breast cancer; Pancreatitis; fatty liver; varices; df1 - PSHx: 02:56 Lumpectomy of breast; Total abdominal hysterectomy; Appendectomy; Cholecystectomy; df1 - Immunization history:: Adult Immunizations up to date, Client reports receiving the 2nd dose of the Covid vaccine. - Social history:: Smoking status: Patient denies any tobacco usage or history of. Patient uses Patient/guardian denies using. - Family history:: not pertinent. Screenin:57 Abuse screen: Denies threats or abuse. Nutritional screening: No deficits noted. df1 Tuberculosis screening: No symptoms or risk factors identified. Fall Risk None identified. Assessment: 03:15 Neuro: No deficits noted. GI: Bowel sounds present X 4 quads. Abd is soft X 4 quads dc2 Abdomen is tender to palpation in right upper quad. Reports lower abdominal pain, that radiates from her back. : Reports urgency, since yesterday urinary frequency, since yesterday. Musculoskeletal: No deficits noted. Reports pain in to lower back. 03:30 Reassessment: Blood collected and sent to lab by ERIC Macias. dc2 Vital Signs: 02:53 BP 142 / 70; Pulse 84; Resp 18; Temp 99.0; Pulse Ox 100% on R/A; Weight 118.84 kg; df1 Height 5 ft. 4 in. (162.56 cm); Pain 9/10; 03:47 BP 146 / 82; Pulse 81; Resp 17; Pulse Ox 97% ; Pain 8/10; dc2 05:31 BP 123 / 63; Pulse 80; Resp 18; Temp 98.4; Pulse Ox 100% on R/A; mr2 05:33 Pain 4/10; mr2 02:53 Body Mass Index 44.97 (118.84 kg, 162.56 cm) df1 ED Course: 02:45 Patient arrived in ED. bp1 02:56 Triage completed. df1 03:00 Arm band placed on Right arm with sleeve and allergy bracelet.. dc2 03:00 Bed in low position. Call light in reach. Side rails up X 1. dc2 03:15 No provider procedures requiring assistance completed. dc2 03:17 Homero Terrell MD is Attending Physician. vicente 03:30 Inserted saline lock: 20 gauge in left antecubital area, using aseptic technique. Blood dc2 collected. Flushed. 03:42 AMMONIA Sent. ms4 03:42 Ptt, Activated Sent. ms4 03:42 Protime (+inr) Sent. ms4 03:42 Basic Metabolic Panel Sent. ms4 03:42 Liver (Hepatic) Function Sent. ms4 03:42 Lipase Sent. ms4 03:42 Basic Metabolic Panel Sent. ms4 03:42 Hepatic Function Sent. ms4 03:42 Lipase Sent. ms4 03:49 Protime (+inr) Sent. dc2 03:49 Ptt, Activated Sent. dc2 03:49 AMMONIA Sent. dc2 03:49 Basic Metabolic Panel Sent. dc2 03:49 Liver (Hepatic) Function Sent. dc2 03:49 Lipase Sent. dc2 04:06 Pan Anaya, ERIC is Primary Nurse. mr2 04:31 Dre Duran is Hospitalizing Provider. vicente 05:00 Chest Single View XRAY Sent. dc2 05:01 CBC Smear Scan Sent. dc2 05:31 Troponin (Emerg Dept Use Only) Sent. mr2 06:44 COVID-19 : Document "Date of Symptom Onset" if Symptomatic. Sent. mr2 08:23 CORONAVIRUS Sent. aj2 19:56 Patient admitted, IV remains in place. ap3 Administered Medications: 04:00 Drug: fentaNYL (PF) 25 mcg Route: IVP; Site: left antecubital; mr2 04:00 Drug: Rocephin (cefTRIAXone) 1 grams Route: IV; Rate: per protocol; Site: left mr2 antecubital; 04:00 Drug: Zofran (Ondansetron) 4 mg Route: IVP; Site: left antecubital; mr2 04:00 Drug: NS 0.9% 1000 ml Route: IV; Rate: 125 ml/hr; Infused Over: 10 hrs; Site: left mr2 antecubital; 04:08 Drug: Pepcid (famotidine) 20 mg Route: IVP; Site: left antecubital; mr2 04:39 Drug: fentaNYL (PF) 25 mcg Route: IVP; Site: left antecubital; mr2 04:50 Drug: Lactulose 30 grams Volume: 45 ml; Route: PO; dc2 Outcome: 04:32 Decision to Hospitalize by Provider. vicente 19:56 Admitted to Med/surg ap3 19:56 Condition: good 19:56 Instructed on the need for admit. 19:56 Patient left the ED. ap3 Signatures: Homero Terrell MD MD cha Prokisch, Amanda RN RN ap3 Sonja Bourgeois Mikaela RN RN ms4 Cale Hoang aj2 Pan Anaya RN RN mr2 Denise Dias df1 Jaci Baron RN RN dc2
[2021-01-01] MEDS ORDERED: FAMOTIDINE 20 MG/2 ML VIAL IV ONE (04:34)
[2021-01-01] MEDS ORDERED: LACTULOSE 20 GM/30 ML UCUP ONE ×4 (05:11→16:58)
--- NOTE | 2021-01-01 05:32 | P.HP ---
Certification for Inpatient Patient admitted to: Observation With expected LOS: <2 Midnights Patient will require the following post-hospital care: None Practitioner: I am a practitioner with admitting privileges, knowledge of patient current condition, hospital course, and medical plan of care. Services: Services provided to patient in accordance with Admission requirements found in Title 42 Section 412.3 of the Code of Federal Regulations Patient History Date of Service: 01/01/21 Reason for admission: abdominal pain History of Present Illness: Ms. Goss is a 60 yo F with ANAYA cirrhosis, chronic pancreatitis, and chronic anemia who presents with 3 days of 9/10 umbilical and epigastric abdominal pain and cramping. She also reports back pain, nausea, fever and soft stools. Denies night sweats, chills, vomiting. Appetite and fluid intake have been at baseline. She has not taking her lactulose for one month because she ran out. She says she had cdiff last month as well. She is refusing transfer to [facility]. Ammonia 92, Plt 45, UA: 1+ leukoctye esterase. Allergies morphine Allergy (Severe, Verified 11/19/19 13:14) Anaphylaxis hydromorphone [From Dilaudid] Allergy (Verified 07/22/20 23:20) Hives/Rash Home Medications: Lactulose 15 ml PO BID PRN 10/22/19 Furosemide 20 mg PO DAILY 05/23/20 Spironolactone 25 mg PO DAILY 05/23/20 Albuterol Inhaler [Ventolin Inhaler*] 2 puff IH TID PRN #1 [email or web address] 07/23/20 Amox/Clavulanate [Augmentin 500-125 mg Tab] 500 mg PO BID #14 tab 07/23/20 Lipase/Protease/Amylase [Creon Dr 12,000 Units Capsule] 12,000 units PO DAILY 07/23/20 Metoprolol Tartrate 12.5 mg PO BID #30 tablet 07/23/20 predniSONE [Deltasone*] 10 mg PO DAILY #7 tab 07/23/20 - Past Medical/Surgical History Diabetic: No -: Cirrhosis of the liver secondary to fatty liver -: History pancreatitis -: History of breast cancer -: ulcers -: Gastroesophageal varices -: Gastric polyps -: History of AV malformation of the colon -: Pancytopenia -: Iron deficiency anemia -: Polyps removed in stomach with banding -: Cholecystectomy -: Appendectomy -: Tonsillectomy -: Right breast lumpectomy with lymph node removal Psychosocial/ Personal History: She is , has 4 children, 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 - Family History Brother -: Diabetes, Kidney disease Notes: Quadruple Bypass Sister -: Heart disease, Diabetes, Cancer Father -: Heart disease, Lung disease Mother -: Blood disorders, Liver disease - Social History Smoking Status: Never smoker Alcohol use: No CD- Drugs: No Caffeine use: No Place of Residence: Home Review of Systems 10-point ROS is otherwise unremarkable Gastrointestinal: Nausea, Abdominal Pain Genitourinary: Frequency Musculoskeletal: Back Pain Physical Examination - Physical Exam General: Alert, In no apparent distress, Cooperative, Obese HEENT: Atraumatic, PERRLA, Mucous membr. moist/pink, EOMI, Sclerae nonicteric Neck: Supple, 2+ carotid pulse no bruit, No LAD, Without JVD or thyroid abnormality Respiratory: Clear to auscultation bilaterally, Normal air movement Cardiovascular: Regular rate/rhythm, Normal S1 S2 Gastrointestinal: Normal bowel sounds, Soft and benign, Non-distended, No ascites, No masses, No rebound, No guarding, Tenderness Musculoskeletal: No tenderness Integumentary: No rashes Neurological: Normal speech, Normal strength at 5/5 x4 extr, Normal tone, Normal affect Lymphatics: No axilla or inguinal lymphadenopathy - Studies Laboratory Data (last 24 hrs) 01/01/21 03:37: PT 13.5 H, INR 1.17, APTT 29.8 01/01/21 03:37: WBC 2.10 L, Hgb 9.8 L, Hct 29.3 L, Plt Count 45 L* 01/01/21 03:37: Sodium 143, Potassium 4.0, BUN 10, Creatinine 0.39 L, Glucose 102, Total Bilirubin 1.3 H, AST 45 H, ALT 46, Alkaline Phosphatase 161 H, Lipase 281 Assessment and Plan - Problems (Diagnosis) (1) Abdominal pain Onset Date: 04/30/14 Current Visit: No Status: Acute Qualifiers: Abdominal location: epigastric (2) UTI (urinary tract infection) Onset Date: 03/01/16 Current Visit: No Status: Acute Qualifiers: Urinary tract infection type: site unspecified Hematuria presence: without hematuria Qualified Code(s): N39.0 - Urinary tract infection, site not specified (3) Cirrhosis of liver Onset Date: 12/23/14 Current Visit: No Status: Chronic - Plan CTAP pending continue IV ceftriaxone, IV protonix pain management and antiemetics as needed clear liquid diet, gentle IVF hydration UA and urine culture pending continue lactulose, repeat ammonia levels reconcile and continue home medications SCDs Discharge Plan: Home Plan to discharge in: 24 Hours - Advance Directives Does patient have a Living Will: No Does patient have a Durable POA for Healthcare: No - Code Status/Comfort Care Code Status Assessed: Yes (full code ) Critical Care: No Time Spent Managing Pts Care (In Minutes): 70
[2021-01-01 05:33] LABS: Troponin (Emerg Dept Use Only) < 0.02 ng/mL (0.0-0.045)
[2021-01-01] MEDS ORDERED: LIDOCAINE VISCOUS 2% SOLN 15 ML UDC ONE (05:39)
[2021-01-01 06:09] VITALS: BMI 49.1
[2021-01-01] MEDS ORDERED: NA CHLORIDE 0.9% 1,000 ML IV SCH (06:40)
[2021-01-01] MEDS ORDERED: FENTANYL CITR 100 MCG/2 ML IV PRN (06:40)
[2021-01-01] MEDS ORDERED: ONDANSETRON 4 MG/2 ML VIAL IV PRN (06:40)
[2021-01-01] MEDS ORDERED: SODIUM CHLORIDE 0.9% 10ML INJ IV PRN (06:40)
[2021-01-01] MEDS ORDERED: ACETAMINOPHEN 500 MG TAB PO PRN (06:40)
[2021-01-01 07:03] LABS: Blood Morphology Comment NOT SEEN (NOT SEEN); Platelet Estimate DECR; White Blood Cell Scan OK (OK)
--- NOTE | 2021-01-01 07:58 | RAD REPORT ---
EXAM DESCRIPTION: I[facility] Single View01/01/2021 5:58 am CLINICAL HISTORY: cough COMPARISON: September 2020 FINDINGS: The lungs appear clear of acute infiltrate. The heart is borderline enlarged IMPRESSION: No acute abnormalities displayed
--- NOTE | 2021-01-01 07:58 | RAD REPORT ---
EXAM DESCRIPTION: CT - Abdomen Pelvis W Contrast - 01/01/2021 7:40 am CLINICAL HISTORY: Abdominal pain COMPARISON: March 2020 TECHNIQUE: Computed axial tomography of the abdomen pelvis was obtained. 100 cc Isovue-300 was admin istered intravenously. Oral contrast was not requested which limits evaluation of bowel. All CT scans are performed using dose optimization technique as appropriate and may include automated exposure control or mA/KV adjustment according to patient size. FINDINGS: A cirrhotic liver. The spleen measures 21 centimeters. Abdominal varices. 2.6 centimeter splenic arterial aneurysm unchanged from March 2020 The pancreas adrenals and left kidney are unremarkable. Tiny nonobstructing right renal calculus. Cho lecystectomy. There is no evidence of diverticulitis. A trace amount of ascites IMPRESSION: Cirrhosis with splenomegaly Trace amount of ascites Punctate nonobstructing right renal calculus
[2021-01-01 08:20] VITALS: O2SAT 99
[2021-01-01] MEDS ORDERED: ACETAMINOPHEN 500 MG TAB ONE ×2 (08:50→14:55)
[2021-01-01] MEDS ORDERED: FUROSEMIDE 20 MG TABLET PO SCH (09:00)
[2021-01-01] MEDS ORDERED: SPIRONOLACTONE 25 MG TABLET PO SCH (09:00)
[2021-01-01] MEDS: LACTULOSE 20 GM/30 ML UCUP PO SCH ×2 (09:00→16:30)
[2021-01-01] MEDS ORDERED: FUROSEMIDE 20 MG TABLET ONE (10:02)
[2021-01-01] MEDS ORDERED: SPIRONOLACTONE 25 MG TABLET ONE (10:09)
[2021-01-01] MEDS ORDERED: PANTOPRAZOLE 40 MG INJ ONE (14:55)
[2021-01-01] MEDS ORDERED: PANTOPRAZOLE 40 MG INJ IVP SCH (16:00)
[2021-01-01] MEDS ORDERED: FENTANYL CITR 100 MCG/2 ML IV ONE (17:00)
--- NOTE | 2021-01-01 17:55 | P.DS ---
Admission Date: 01/01/21 Discharge Date: 01/01/21 Disposition: ROUTINE DISCHARGE Discharge Condition: FAIR Reason for Admission: abdominal pain - Problems (1) Chronic pancreatitis Current Visit: Yes Status: Acute (2) Morbid obesity Current Visit: Yes Status: Acute (3) Abdominal pain Onset Date: 04/30/14 Current Visit: No Status: Acute Qualifiers: Abdominal location: epigastric (4) Cirrhosis of liver Onset Date: 12/23/14 Current Visit: No Status: Chronic (5) GERD (gastroesophageal reflux disease) Onset Date: 03/01/16 Current Visit: No Status: Chronic Qualifiers: Esophagitis presence: without esophagitis Qualified Code(s): K21.9 - Gastro-esophageal reflux disease without esophagitis Brief History of Present Illness: 60 yo F with ANAYA cirrhosis, chronic pancreatitis, and chronic anemia who presents with 3 days of 9/10 umbilical and epigastric abdominal pain and cramping. She reported back pain, nausea, fever and soft stools. Appetite and fluid intake have been at baseline. She was not taking her lactulose for one month because she ran out. She says she had cdiff last month as well. Ammonia 92, Plt 45, UA: 1+ leukoctye esterase. Patient hospitalized for further management. Hospital Course: Patient placed under observation on the medical floor and treated with sup portive measures. Initially kept on liquid diet but this was advanced to solid which she tolerated. Her lipase level was normal. Liver enzymes slightly elevated. Patient has tolerated diet and deemed stable for discharge. She is advised to follow with her electrolysis operator for further management. She is given prescription for lactulose. Vital Signs/Physical Exam: Temp Pulse Resp BP Pulse Ox 97.8 F 70 18 129/55 L 99 01/01/21 08:21 01/01/21 14:47 01/01/21 16:59 01/01/21 14:47 01/01/21 16:59 General: Alert, In no apparent distress, Oriented x3, Obese HEENT: Mucous membr. moist/pink Neck: JVD not distended Respiratory: Clear to auscultation bilaterally, Normal air movement Cardiovascular: No edema, Regular rate/rhythm, Normal S1 S2 Gastrointestinal: Normal bowel sounds, Soft and benign, Non-distended, No tenderness Musculoskeletal: No swelling Integumentary: No rashes Neurological: Normal strength at 5/5 x4 extr Laboratory Data at Discharge: WBC 2.10 K/uL (4.3-10.9) L 01/01/21 03:37 Hgb 9.8 g/dL (12.0-15.0) L 01/01/21 03:37 Hct 29.3 % (36.0-45.0) L 01/01/21 03:37 Plt Count 45 K/uL (152-406) L* 01/01/21 03:37 PT 13.5 SECONDS (9.5-12.5) H 01/01/21 03:37 INR 1.17 01/01/21 03:37 APTT 29.8 SECONDS (24.3-36.9) 01/01/21 03:37 Sodium 143 mmol/L (136-145) 01/01/21 03:37 Potassium 4.0 mmol/L (3.5-5.1) 01/01/21 03:37 BUN 10 mg/dL (7-18) 01/01/21 03:37 Creatinine 0.39 mg/dL (0.55-1.3) L 01/01/21 03:37 Glucose 102 mg/dL (74-106) 01/01/21 03:37 Total Bilirubin 1.3 mg/dL (0.2-1.0) H 01/01/21 03:37 AST 45 U/L (15-37) H 01/01/21 03:37 ALT 46 U/L (12-78) 01/01/21 03:37 Alkaline Phosphatase 161 U/L (45-117) H 01/01/21 03:37 Amylase 46 U/L (25-115) 01/01/21 07:03 Lipase 281 U/L (73-393) 01/01/21 03:37 Home Medications: Furosemide 20 mg PO DAILY 05/23/20 Spironolactone 25 mg PO DAILY 05/23/20 Albuterol Inhaler [Ventolin Inhaler*] 2 puff IH TID PRN #1 hfa.aer.ad 07/23/20 Amox/Clavulanate [Augmentin 500-125 mg Tab*] 500 mg PO BID #14 tab 07/23/20 Lipase/Protease/Amylase [Ramonon Dr 12,000 Units Capsule] 12,000 units PO DAILY 07/23/20 predniSONE [Deltasone*] 10 mg PO DAILY #7 tab 07/23/20 Lactulose 15 ml PO BID PRN #900 ml 01/01/21 Pantoprazole [Protonix Tab] 40 mg PO DAILY #30 tab 01/01/21 Pharmacy Consult 1 ea XX DAILYPRN PRN each 01/01/21 New Medications: Lactulose 15 ml PO BID PRN #900 ml PRN Reason: Constipation Pantoprazole [Protonix Tab] 40 mg PO DAILY #30 tab Diet: AHA (Advanced from soft diet to solid as tolerated.) Activity: Ad lencho Followup: Madhu Albarado MD [Primary Care Provider] - 1-2 Weeks
[2021-01-01 19:02] VITALS: BP 126/60; TEMP 98.4
[2021-01-01] MEDS ORDERED: CEFTRIAXONE/SWI 1gm 1 GM/10 ML SYR IV SCH (21:00)
[2021-01-02] MEDS ORDERED: CEFTRIAXONE 1 GM/NS 50 ML 1 GM/50 ML BAG IV SCH (03:00)
== END 2021-01-01 19:55 | disposition home or self-care (01) ==
LOC: ER 02:42 → ERHOLD 05:15
PROVIDERS: ADMIT Internal Medicine; ATTEND Internal Medicine
DX: K86.1 Other chronic pancreatitis (principal); K75.81 Nonalcoholic steatohepatitis (NASH); K76.0 Fatty (change of) liver, not elsewhere classified; K74.60 Unspecified cirrhosis of liver; I85.10 Secondary esophageal varices without bleeding; N39.0 Urinary tract infection, site not specified; G93.40 Encephalopathy, unspecified; K21.9 Gastro-esophageal reflux disease without esophagitis; K59.00 Constipation, unspecified; D50.9 Iron deficiency anemia, unspecified; D61.818 Other pancytopenia; E66.01 Morbid (severe) obesity due to excess calories; Z68.41 Body mass index [BMI] 40.0-44.9, adult; Z20.822 Contact with and (suspected) exposure to COVID-19; Z88.6 Allergy status to analgesic agent; Z85.3 Personal history of malignant neoplasm of breast; Z86.010 Personal history of colon polyps; Z90.49 Acquired absence of other specified parts of digestive tract; Z98.84 Bariatric surgery status; Z82.49 Family history of ischemic heart disease and other diseases of the circulatory system; Z83.3 Family history of diabetes mellitus; Z80.9 Family history of malignant neoplasm, unspecified; Z84.1 Family history of disorders of kidney and ureter; Z83.6 Family history of other diseases of the respiratory system; Z83.2 Family history of diseases of the blood and blood-forming organs and certain disorders involving the immune mechanism
CPT/HCPCS: 93005 ×2; 85025; 80048; 36415; 82140 ×2; 82150; 85610; 82947 ×2; 80076; 85730; 81003; 84484; 83690; 74177; 71045; 94760; 96375; 96374; 99285; U0003; Q9967; C9113; J3010 ×2; J7030 ×2; J2405; G0378 ×2

== ENCOUNTER 2021-01-26 05:13 | Emergency (ER) | payer OTHER ==
[2021-01-26 06:49] LABS: Absolute Lymphocytes (CBC) 0.5 K/uL (0.7-4.9); Basophils % 0.6 % (0-1.3); Hematocrit 30.9 % (36.0-45.0); Lymphocytes % 21.1 % (15.3-44.8); MPV 8.1 fL (7.6-11.3); RBC Red Blood Cell Count 3.39 M/uL (3.86-4.86)
[2021-01-26 06:52] LABS: ALT/SGPT 43 U/L (12-78); AST/SGOT 40 U/L (15-37); Alkaline Phosphatase 161 U/L (45-117); BUN Blood Urea Nitrogen 9 mg/dL (7-18); Bicarbonate 26 mmol/L (21-32); Bilirubin Direct 0.6 mg/dL (0-0.2); Bilirubin Total 1.4 mg/dL (0.2-1.0); Glucose Level 101 mg/dL (74-106); Lipase 263 U/L (73-393); Potassium 3.7 mmol/L (3.5-5.1); Protein, Total 6.7 g/dL (6.4-8.2); Sodium Level 145 mmol/L (136-145)
[2021-01-26] MEDS ORDERED: ONDANSETRON 4 MG/2 ML VIAL ONE (06:52)
[2021-01-26] MEDS ORDERED: NA CHLORIDE 0.9% 500 ML ONE (06:52)
[2021-01-26] MEDS ORDERED: FENTANYL CITR 100 MCG/2 ML ONE (06:52)
[2021-01-26 07:34] LABS: Urine Blood Negative (Negative); Urine Glucose Negative (Negative); Urine Protein Negative (Negative); Urine Specific Gravity 1.025 (1.005-1.030)
--- NOTE | 2021-01-26 07:48 | RAD REPORT ---
EXAM DESCRIPTION: CTAbdomen Pelvis W Contrast - 01/26/2021 7:40 am CLINICAL HISTORY: ABD PAIN COMPARISON: Abdomen Pelvis W Contrast dated 01/01/2021; Abdomen Pelvis W Contrast dated 09/27/2020 ; Abdomen Pelvis W Contrast dated 08/31/2020; Abdomen Pelvis W Contrast dated 05/23/2020 TECHNIQUE: CT of the abdomen and pelvis was performed. All CT scans are performed using dose optimization technique as appropriate and may include automated exposure control or mA/KV adjustment according to patient size. FINDINGS: Lower chest: No acute abnormality. Liver: Cirrhotic liver morphology. Biliary: Cholecystectomy. Stomach: No significant focal abnormality. Duodenum: No significant focal abnormality. Pancreas: No significant abnormality. Spleen: Splenomegaly. Adrenal: No suspicious lesions. Kidney/ureter: No hydronephrosis. Punctate right renal calculi. Too small to characterize and/or yahir gn appearing renal lesions are noted. Retroperitoneum: No retroperitoneal adenopathy. Vascular: No aneurysm. Bowel: No significant focal abnormality. No appendicitis identified. Peritoneum: Trace ascites. Bladder: Grossly unremarkable. Reproductive: No adnexal masses. Bones: No acute fracture. Other: n/a IMPRESSION: No acute intra-abdominal or pelvic finding. Cirrhosis with evidence of portal hypertensi on.
--- NOTE | 2021-01-26 08:09 | EDPHYS ---
Physician Documentation [facility] Name: Zenaida Goss Age: 60 yrs Sex: Female : 1960 Arrival Date: 01/26/2021 Time: 05:17 Bed 14 Private MD: ED Physician Brandon Oneal HPI: 01/26 06:23 This 60 yrs old Female presents to ER via Ambulatory with complaints of jr8 Abdominal Pain. 06:23 The patient presents with abdominal pain in the upper abdomen. Onset: The jr8 symptoms/episode began/occurred gradually. The symptoms radiate to back. Associated signs and symptoms: Pertinent negatives: nausea, vomiting, and diarrhea. The symptoms are described as shooting, stabbing. Modifying factors: The symptoms are alleviated by nothing, the symptoms are aggravated by movement. Severity of pain: At its worst the pain was moderate in the emergency department the pain is unchanged. The patient has experienced similar episodes in the past, several times. The patient has not recently seen a physician. This is a 60-year-old female patient that came in with upper abdominal pain radiating to the back. Patient has a history of cirrhosis and pancreatitis. Feels that the pain is similar to her other pancreatitis episodes. Last seen in September for pancreatitis per patient. Denies any other symptoms at this time. Patient also denies change in medications or recent surgeries.. Historical: - Allergies: 05:25 Dilaudid; dc2 05:25 Morphine (Anaphylaxis); dc2 - Home Meds: 05:25 Furosemide Oral [Active]; Lactulose Oral once daily [Active]; dc2 - PMHx: 05:25 Anemia; Cirrhosis; Pancreatitis; fatty liver; breast cancer; varices; dc2 - PSHx: 05:25 Appendectomy; Cholecystectomy; Lumpectomy of breast; Total abdominal hysterectomy; dc2 - Immunization history:: Adult Immunizations up to date, Client reports receiving the 2nd dose of the Covid vaccine, Date received: January 12, 2021 [place] Last tetanus immunization:. - Social history:: Smoking status: Patient denies any tobacco usage or history of. Patient/guardian denies using alcohol, street drugs, IV drugs, caffeine. ROS: 06:23 Eyes: Negative for injury, pain, redness, and discharge, ENT: Negative for injury, jr8 pain, and discharge, Neck: Negative for injury, pain, and swelling, Cardiovascular: Negative for chest pain, palpitations, and edema, Respiratory: Negative for shortness of breath, cough, wheezing, and pleuritic chest pain, Back: Negative for injury and pain, MS/Extremity: Negative for injury and deformity, Skin: Negative for injury, rash, and discoloration, Neuro: Negative for headache, weakness, numbness, tingling, and seizure. 06:23 Abdomen/GI: Positive for abdominal pain, Negative for nausea, vomiting, and diarrhea, hematemesis, black/tarry stool, rectal bleeding. Exam: 06:23 Cardiovascular: Regular rate and rhythm with a normal S1 and S2. Grade 3/6 right and jr8 left sternal border. normal PMI, no JVD. No pulse deficits. Respiratory: Lungs have equal breath sounds bilaterally, clear to auscultation and percussion. No rales, rhonchi or wheezes noted. No increased work of breathing, no retractions or nasal flaring. Back: No spinal tenderness. No costovertebral tenderness. Full range of motion. Skin: Warm, dry with normal turgor. Normal color with no rashes, no lesions, and no evidence of cellulitis. MS/ Extremity: Pulses equal, no cyanosis. Neurovascular intact. Full, normal range of motion. Neuro: Awake and alert, GCS 15, oriented to person, place, time, and situation. Cranial nerves II-XII grossly intact. Motor strength 5/5 in all extremities. Sensory grossly intact. 06:23 Constitutional: The patient appears alert, awake, uncomfortable. 06:23 Abdomen/GI: Inspection: obese Bowel sounds: active, all quadrants, Palpation: soft, in all quadrants, moderate abdominal tenderness, in the epigastric area, right upper quadrant and left upper quadrant, mass, is not appreciated, rebound tenderness, is not appreciated, voluntary guarding, is not appreciated, involuntary guarding, is not appreciated, no appreciated organomegaly, Indicators: McBurney's point is not tender, Manriquez's sign is negative. Vital Signs: 05:22 BP 141 / 70; Pulse 83; Resp 20; Temp 99.5; Pulse Ox 100% ; Weight 117.93 kg; Height 5 dc2 ft. 4 in. (162.56 cm) (R); Pain 9/10; 05:51 BP 112 / 47; Pulse 86; Resp 16; Pulse Ox 100% on R/A; bc5 07:35 BP 111 / 39; Pulse 78; Resp 16; Pulse Ox 96% ; Pain 7/10; tc5 05:22 Body Mass Index 44.63 (117.93 kg, 162.56 cm) dc2 MDM: 06:02 Patient medically screened. jr8 08:02 Data reviewed: vital signs, nurses notes, lab test result(s), radiologic studies, CT jr8 scan. Data interpreted: Pulse oximetry: on room air is 96 %. Interpretation: normal. Counseling: I had a detailed discussion with the patient and/or guardian regarding: the historical points, exam findings, and any diagnostic results supporting the discharge/admit diagnosis, lab results, radiology results, the need for outpatient follow up, a family practitioner, a street light wirer, to return to the emergency department if symptoms worsen or persist or if there are any questions or concerns that arise at home. Response to treatment: the patient's symptoms have markedly improved after treatment. Special discussion: Based on the patient's Hx, exam, and Dx evaluation, there is no indication for emergent surgery or inpatient Tx. It is understood by the patient/guardian that if the Sx's persist or worsen they need to return immediately for re-evaluation. 01/26 06:02 Order name: Basic Metabolic Panel; Complete Time: 07:06 01/26 06:02 Order name: CBC with Diff 01/26 06:02 Order name: Hepatic Function; Complete Time: 07:06 01/26 06:02 Order name: Lipase; Complete Time: 07:06 01/26 07:07 Order name: CT Abd/Pelvis - IV Contrast Only; Complete Time: 07:51 01/26 07:33 Order name: Urine Dipstick-Ancillary; Complete Time: 07:47 EDMS 01/26 06:02 Order name: IV Saline Lock; Complete Time: 06:20 01/26 06:02 Order name: Labs collected and sent; Complete Time: 06:20 Administered Medications: 06:32 Drug: fentaNYL (PF) 50 mcg Route: IVP; Site: left hand; bc5 06:32 Drug: Zofran (Ondansetron) 4 mg Route: IVP; Site: left hand; bc5 06:32 Drug: NS 0.9% 500 ml Route: IV; Rate: bolus; Site: left hand; bc5 Disposition Summary: 01/26/21 08:08 Discharge Ordered Location: Home jr8 Problem: new jr8 Symptoms: have improved jr8 Condition: Stable jr8 Diagnosis - Upper abdominal pain, unspecified jr8 - Other chronic pancreatitis jr8 Followup: jr8 - With: Private Physician - When: 2 - 3 days - Reason: Recheck today's complaints, Continuance of care, Re-evaluation by your physician Discharge Instructions: - Discharge Summary Sheet jr8 - Abdominal Pain, Adult jr8 - Chronic Pancreatitis jr8 Forms: - Medication Reconciliation Form jr8 - Thank You Letter jr8 - Antibiotic Education jr8 - Prescription Opioid Use jr8 Signatures: Dispatcher [employer] Scott Moeller PA PA jr8 Jessica Patten, RN RN bc5 LoraineJaci willson RN RN dc2
--- NOTE | 2021-01-26 08:09 | ER ---
Nurse's Notes [facility] Name: Zenaida Goss Age: 60 yrs Sex: Female : 1960 Arrival Date: 01/26/2021 Time: 05:17 Bed 14 Private MD: Diagnosis: Upper abdominal pain, unspecified;Other chronic pancreatitis Presentation: 01/26 05:22 Chief complaint: Patient states: CO right upper quad pain and right sided middle back dc2 pain that started a week ago but today is very bad". Coronavirus screen: Client denies travel out of the [place] in the last 14 days. At this time, the client does not indicate any symptoms associated with coronavirus-19. The client reports previous COVID testing was negative. Ebola Screen: Patient negative for fever greater than or equal to 101.5 degrees Fahrenheit, and additional compatible Ebola Virus Disease symptoms Patient denies exposure to infectious person. Patient denies travel to an Ebola-affected area in the 21 days before illness onset. No symptoms or risks identified at this time. Initial Sepsis Screen: Does the patient meet any 2 criteria? No. Patient's initial sepsis screen is negative. Does the patient have a suspected source of infection? No. Patient's initial sepsis screen is negative. Risk Assessment: Do you want to hurt yourself or someone else? Patient reports no desire to harm self or others. Note Pt denies trauma or injury. Onset of symptoms was January 19, 2021. Care prior to arrival: None. 05:22 Method Of Arrival: Ambulatory dc2 05:22 Acuity: TANK 3 dc2 Triage Assessment: 05:29 General: Appears uncomfortable, obese, well groomed, Behavior is calm, cooperative, Pt dc2 making facial grimacing and rocking in chair states because of the pain so bad. States thinks it could be pancreatitis acting up. . 05:47 Pain: Complains of pain in abdomen. bc5 Historical: - Allergies: 05:25 Dilaudid; dc2 05:25 Morphine (Anaphylaxis); dc2 - Home Meds: 05:25 Furosemide Oral [Active]; Lactulose Oral once daily [Active]; dc2 - PMHx: 05:25 Anemia; Cirrhosis; Pancreatitis; fatty liver; breast cancer; varices; dc2 - PSHx: 05:25 Appendectomy; Cholecystectomy; Lumpectomy of breast; Total abdominal hysterectomy; dc2 - Immunization history:: Adult Immunizations up to date, Client reports receiving the 2nd dose of the Covid vaccine, Date received: January 12, 2021 [place] Last tetanus immunization:. - Social history:: Smoking status: Patient denies any tobacco usage or history of. Patient/guardian denies using alcohol, street drugs, IV drugs, caffeine. Screenin:46 Abuse screen: Denies threats or abuse. Denies injuries from another. Nutritional bc5 screening: No deficits noted. Tuberculosis screening: No symptoms or risk factors identified. Fall Risk No fall in past 12 months (0 pts). No secondary diagnosis (0 pts). IV access (20 points). Ambulatory Aid- None/Bed Rest/Nurse Assist (0 pts). Gait- Normal/Bed Rest/Wheelchair (0 pts) Mental Status- Oriented to own ability (0 pts). Total Adames Fall Scale indicates No Risk (0-24 pts). Assessment: 05:46 GI: Bowel sounds present X 4 quads. Abd is soft Abd is non tender X 4 quads. bc5 05:47 Neuro: No deficits noted. Cardiovascular: No deficits noted. Respiratory: No deficits bc5 noted. 05:47 Reassessment: Pt c/o RUQ pain x 1 wekk, Has Hx of cirrhosis and pancreatitis "It feels bc5 like my pancreatitis acting up again" Pt reports at home Tylenol has been "kind of helpful" and reports nausea "only when the pain gets bad". A\\T\\O x 3, RR is even and unlabored, speaking in clear and complete sentences at this time. Vital Signs: 05:22 BP 141 / 70; Pulse 83; Resp 20; Temp 99.5; Pulse Ox 100% ; Weight 117.93 kg; Height 5 dc2 ft. 4 in. (162.56 cm) (R); Pain 9/10; 05:51 BP 112 / 47; Pulse 86; Resp 16; Pulse Ox 100% on R/A; bc5 07:35 BP 111 / 39; Pulse 78; Resp 16; Pulse Ox 96% ; Pain 7/10; tc5 05:22 Body Mass Index 44.63 (117.93 kg, 162.56 cm) dc2 ED Course: 05:17 Patient arrived in ED. bp1 05:25 Triage completed. dc2 05:28 Patient Red sleeve placed on right arm, Pt with hx of breast cancer. dc2 05:37 Jessica Patten, RN is Primary Nurse. bc5 05:46 Arm band placed on left wrist. bc5 05:47 Placed in gown. Bed in low position. Call light in reach. Side rails up X 1. bc5 06:01 Scott Eastman PA is PHCP. jr8 06:02 Brandon Oneal MD is Attending Physician. jr8 06:21 No provider procedures requiring assistance completed. Inserted saline lock: 20 gauge bc5 in left hand, using aseptic technique. 07:10 Emi Lay, ERIC is Primary Nurse. tc5 07:34 Inserted saline lock: 20 gauge in left forearm, using aseptic technique. ,using aseptic tc5 technique. for CT scan. 07:40 CT Abd/Pelvis - IV Contrast Only In Process Unspecified. EDMS 08:36 IV discontinued, intact, bleeding controlled, No redness/swelling at site. Pressure tc5 dressing applied, IV site Left FA and Left hand. Administered Medications: 06:32 Drug: fentaNYL (PF) 50 mcg Route: IVP; Site: left hand; bc5 06:32 Drug: Zofran (Ondansetron) 4 mg Route: IVP; Site: left hand; bc5 06:32 Drug: NS 0.9% 500 ml Route: IV; Rate: bolus; Site: left hand; bc5 Outcome: 08:08 Discharge ordered by . jr8 08:35 Discharged to home tc5 08:35 Condition: stable 08:35 Discharge instructions given to patient. 08:36 Patient left the ED. tc5 Signatures: Dispatcher [employer] EDMS Scott Eastman PA PA jr8 Sonja Bourgeois [facility] Jessica Patten, RN RN bc5 LoraineJaci willson RN RN dc2 Emi Lay, ERIC RN tc5
[2021-01-26 09:12] VITALS: TEMP 99.5
[2021-01-26 09:14] VITALS: BP 111/39; O2SAT 96
[2021-01-26 13:13] LABS: Blood Morphology Comment NOT SEEN (NOT SEEN); Platelet Estimate DECR; White Blood Cell Scan OK (OK)
== END 2021-01-26 08:36 | disposition home or self-care (01) ==
LOC: ER 05:13
DX: K86.1 Other chronic pancreatitis (principal); Z88.5 Allergy status to narcotic agent
CPT/HCPCS: 85025; 80048; 36415; 80076; 81003; 83690; 74177; 96375; 96374; 99283; Q9967; J3010; J7040; J2405

== ENCOUNTER 2021-03-30 15:25 | Emergency (ER) | payer OTHER ==
--- OUTSIDE RECORDS SUMMARY | 2021-03-30 15:35 | XMS REPORT | Continuity of Care Document ---
:1960 Author Organization [facility] t Address [address] [place] [address] Care Team Providers Name Role Phone Sami HERNANDEZ Primary Care Physician Unavailable Nancy REYES Attending Clinician Unavailable NETTIE Attending Clinician Unavailable Only, Db Test Attending Clinician Unavailable Unknown Attending Clinician Unavailable Doctor Unassigned, Name Attending Clinician Unavailable JAIME Attending Clinician Unavailable Sami CARLOS Attending Clinician Unavailable SYLVIA Attending Clinician Unavailable Claudia REYES, M Attending Clinician Cristina HENSLEY S Attending Clinician Millie HENSLEY Attending Clinician MANUELITO Attending Clinician Unavailable MD MANUELITO Attending Clinician Unavailable Kyrie GERMAN Attending Clinician Unavailable SHERIDAN THOMAS MD Attending Clinician Unavailable MD CECE SANDOVAL Attending Clinician Unavailable Lab, Fam Pob I Attending Clinician Unavailable Kamaljit GARCIA, A Attending Clinician Nasrin REYES, A Attending Clinician Unavailable MILLIE Attending Clinician Unavailable SHAYY DAVEY Attending Clinician Unavailable JUDIT ESCALONA Attending Clinician Unavailable SHERIDAN THOMAS Admitting Clinician Unavailable Sami CARLOS Admitting Clinician Unavailable SYLVIA Admitting Clinician Unavailable Millie HENSLEY Admitting Clinician SHERIDAN THOMAS MD Admitting Clinician Unavailable MD SYLVIA Admitting Clinician Unavailable JAIME Admitting Clinician Unavailable MD CECE SANDOVAL Admitting Clinician Unavailable MANUELITO Admitting Clinician Unavailable MD MANUELITO Admitting Clinician Unavailable MILLIE Admitting Clinician Unavailable SHAYY DAVEY Admitting Clinician Unavailable JUDIT ESCALONA Admitting Clinician Unavailable Payers Payer Name Policy Type Policy Number Effective Date Expiration Date Deshawn blancas [facility] [id number] 2019 CHOICE 00:00:00 Problems Condition Condition Condition Status Onset Resolution Last Treating Co mments Source Name Details Category Date Date Treatment Clinician Date Pancolitis Pancolitis Disease Active U nivers 6-21 ity of 00:00: [place] 00 Medical Branch Arrhythmia Arrhythmia Disease Active U nivers 6- ity of 00:00: [place] [facility] Ventricula Ventricula Disease Active U nivers r r - [place] of tachycardi tachycardi [place] Other Other Disease Active [facility] cirrhosis cirrhosis - ity of of liver of liver 00:00: [place] 00 Medical Branch ANAYA ANAYA Disease Active Univers (nonalcoho (nonalcoho 09-29 it y of lic lic 00:00: [place] steatohepa steatohepa 00 Me dical titis) titis) Branch Hypokalemi Hypokalemi Disease Active U nivers a a 6- ity of 00:00: [place] 00 Medical Branch Acute Acute Disease Active Univers colitis colitis - ity of 00:00: [place] 00 Medical Branch SBO (small SBO (small Disease Active U nivers bowel bowel 5- ity of obstructio obstructio [place] n) n) 00 Medical [place] Intractabl Intractabl Disease Active U nivers e nausea e nausea 5- ity of and and 00:00: [place] vomiting vomiting 00 Medica l Branch Morbid Morbid Disease Active Univers obesity obesity 4-29 ity of with body with body 00:[place] mass index mass index 00 Me dical of of Branch 40.0-49.9 40.0-49.9 Morbid Morbid Disease Active Univers obesity obesity 4-29 ity of with body with body 00:[place] mass index mass index 00 Me dical of 50 or of 50 or Branch higher higher Nausea & Nausea & Disease Active Unive rs vomiting vomiting 08-07 ity of 00:00: 00 Medical Branch Primary Primary Diagnosis Active [facility] [...] Type Date Date Clinician Hydromor Propensi Active Rash Univer s phone ty to 09-30 ity of adverse 00:00: [place] reaction 00 Medical s Branch HYDROMOR DRUG Active Rash Univers PHONE INGREDI 09-30 ity of 00:00: [place] 00 Medical Branch MORPHINE DRUG Active High Anaphylaxis Uni vers INGREDI 06-30 ity of 00:00: Medical Branch Morphine Propensi Active Swelling Throat Univ ers ty to 06-30 closes, ity of adverse 00:00: tongue [place] reaction 00 swelling Medica l s Branch MORPHINE Adverse Active Info Not [facility] Reaction Available [facility] Social History Social Habit Start Date Stop Date Quantity Comments Source Exposure to Not sure [facility] SARS-CoV-2 [facility] (event) [place] Alcohol intake 2021-02-03 2021-02-03 Ex-drinker [facility] 00:00:00 00:00:00 (finding) [facility] Tobacco use and 2016-08-07 2016-08-07 Never used Universit y of exposure 00:00:00 00:00:00 [facility] Sex Ass[birth year] At [birth year] Universit y of 00:00:00 00:00:00 [facility] Smoking Status Start Date Stop Date Source Never smoker [facility] Medications Ordered Filled Start Stop Current Ordering Indication Dosage Frequency Signature Comments Components Source Medication Medication Date Date Medication? Clinician (SIG) Name Name cholecalcif 2020- No [id number] 2000U Take 2 Univers nuno, 10-04 07-27 tablets by ity of vitamin D3, 00:00: 04:59 [place] 25 mcg 00 :00 daily for Medical (1,000 30 days. Branch unit) tablet cyanocobala 2020- No [id number] 1000ug inject 1 Univers min 1,000 6-26 07-27 mL under ity o f mcg/mL 00:00: 04:59 the skin [place] injection 00 :00 every 24 Medica l (twenty-fo Branch ur) hours for 30 days. KCL 20 mEq 2020- No [id number] 20meq Take 1 Univers tablet 6-26 07-27 tablet by ity of 00:00: 04:59 mouth [place] 00 :00 daily for Medical 30 days. Branch cholecalcif 2020- No [id number] 2000U Take 2 Univers nuno, 6-26 07-27 tablets by ity of vitamin D3, 00:00: 04:59 mouth [place] 25 mcg 00 :00 daily for Medical (,000 30 days. Branch unit) tablet cyanocobala 2020- No [id number] 1000ug inject 1 Univers min 1,000 6-26 07-27 mL under ity o f mcg/mL 00:00: 04:59 the skin [place] injection 00 :00 every 24 Medica l (twenty-fo Branch ur) hours for 30 days. KCL 20 mEq 2020- No [id number] 20meq Take 1 Univers tablet 6-26 07-27 tablet by ity of 00:00: 04:59 mouth [place] 00 :00 daily for Medical 30 days. Branch lactulose Yes 30mL Take 30 mL Un marline 10 gram/15 6-25 by mouth ity o f mL oral 18:10: daily. [place] solution 25 Medical Branch pantoprazol Yes 40mg Take 40 mg Univers e 6-25 by mouth ity of (PROTONIX) 18:10: daily. [place] 40 mg EC 25 Medical tablet Branch lactulose Yes 30mL Take 30 mL Un marline 10 gram/15 6-25 by mouth ity o f mL oral 18:10: daily. [place] solution 25 Medical Branch pantoprazol Yes 40mg Take 40 mg Univers e 6-25 by mouth ity of (PROTONIX) 18:10: daily. [place] 40 mg EC 25 Medical tablet Branch lipase/prot 2020- No Take by U nivers ease/amylas 6-25 06-25 mouth. ity o f e (CREON 10 16:09: 00:00 [place] ORAL) 48 :00 Medical Branch furosemide 2020- 40mg Take 40 mg Univers (LASIX) 40 25 06-25 by mouth ity of mg tablet 16:09: 00:00 every [place] 48 :00 morning Medical and Branch evening. lactulose Yes 30mL Take 30 mL Un marline 10 gram/15 6-25 by mouth ity o f mL oral 13:10: daily. [place] solution 25 Medical Branch pantoprazol Yes 40mg Take 40 mg Univers e 6-25 by mouth ity of (PROTONIX) 13:10: daily. [place] 40 mg EC 25 Medical tablet Branch lactulose Yes 30mL Take 30 mL Un marline 10 gram/15 6-25 by mouth ity o f mL oral 13:10: daily. [place] solution 25 Medical Branch pantoprazol Yes 40mg Take 40 mg Univers e 6-25 by mouth ity of (PROTONIX) 13:10: daily. [place] 40 mg EC 25 Medical tablet Branch lactulose Yes 30mL Take 30 mL Un marline 10 gram/15 6-25 by mouth ity o f mL oral 13:10: daily. [place] solution 25 Medical Branch pantoprazol Yes 40mg Take 40 mg Univers e 6-25 by mouth ity of (PROTONIX) 13:10: daily. [place] 40 mg EC 25 Medical tablet Branch proMETHazin Yes 12.5mg 12.5 mg, Univers e 6-25 Oral, ity of (PHENERGAN) 04:17: Q6HPRN, [place] tablet 12.5 34 Starting Medi molly mg Geraldine Branch 10/02/20 at 2317, Until Discontinu ed, Routine, Nausea and Vomiting (N/V), N/V unresponsi ve to Ondansetro n proMETHazin Yes [id number] 12.5mg Take 1 Univers e 12.5 mg 6-25 tablet by ity o f tablet 00:00: mouth [place] 00 every 6 Medical (six) Branch hours as needed for Nausea and Vomiting (N/V) or N/V unresponsi ve to Ondansetro n. proMETHazin Yes [id number] 12.5mg Take 1 Univers e 12.5 mg 6-25 tablet by ity o f tablet 00:00: mouth [place] 00 every 6 Medical (six) Branch hours as needed for Nausea and Vomiting (N/V) or N/V unresponsi ve to Ondansetro n. proMETHazin Yes [id number] 12.5mg Take 1 Univers e 12.5 mg 6-25 tablet by ity o f tablet 00:00: mouth [place] 00 every 6 Medical (six) Branch hours as needed for Nausea and Vomiting (N/V) or N/V unresponsi ve to Ondansetro n. proMETHazin Yes [id number] 12.5mg Take 1 Univers e 12.5 mg 6-25 tablet by ity o f tablet 00:00: mouth [place] 00 every 6 Medical (six) Branch hours as needed for Nausea and Vomiting (N/V) or N/V unresponsi ve to Ondansetro n. proMETHazin Yes [id number] 12.5mg Take 1 Univers e 12.5 mg 6-25 tablet by ity o f tablet 00:00: mouth [place] 00 every 6 Medical (six) Branch hours as needed for Nausea and Vomiting (N/V) or N/V unresponsi ve to Ondansetro n. furosemide 2020- No [id number] 40mg Take 1 Univers 40 mg 6-25 07-26 tablet by ity of tablet 00:00: 04:59 mouth [place] 00 :00 every Medical morning Branch and evening for 30 days. lipase-prot 2020- No [id number] 2{capsu Take 2 Univers ease-amylas 6-25 07-26 le} capsules ity of e 00:00: 04:59 by mouth 3 [place] 12,000-38,0 00 :00 (three) Medic al 00 -60,000 times Branch unit daily with capsule meals for 30 days. lactobacill 2020- No [id number] .5mg Take 1 Univers us 6-25 07-26 tablet by ity of acidophilus 00:00: 04:59 mouth 2 [place] 00 :00 (two) Medical times Branch daily for 30 days. furosemide 2020- No [id number] 40mg Take 1 Univers 40 mg 6-25 - tablet by ity of tablet 00:00: 04:59 mouth [place] 00 :00 every Medical morning Branch and evening for 30 days. lipase-prot 2020- No [id number] 2{capsu Take 2 Univers ease-amylas 6-25 07-26 le} capsules ity of e 00:00: 04:59 by mouth 3 [place] 12,000-38,0 00 :00 (three) Medic al 00 -60,000 times Branch unit daily with capsule meals for 30 days. lactobacill 2020- No [id number] .5mg Take 1 Univers us 6-25 - tablet by ity of acidophilus 00:00: 04:59 mouth 2 [place] 00 :00 (two) Medical times Branch daily for 30 days. vancomycin 2020- No [id number] 125mg Take 1 Univers 125 mg 6-25 -06 capsule by ity of capsule 00:00: 04:59 mouth 4 [place] 00 :00 (four) Medical times Branch daily for 10 days. vancomycin 2020- No [id number] 125mg Take 1 Univers 125 mg 6-25 -06 capsule by ity of capsule 00:00: 04:59 mouth 4 [place] 00 :00 (four) Medical times Branch daily for 10 days. HYDROcodone 2020- No [id number] 1{tbl} Take 1 U nivers -acetaminop 6-25 07-03 tablet by it y of hen 5-325 00:00: 04:59 mouth [place] mg tablet 00 :00 every 6 Medical (six) Branch hours as needed for Pain (scale 7-10) for up to 7 days. Indication s: acute pain HYDROcodone 2020- No [id number] 1{tbl} Take 1 U nivers -acetaminop 6-25 07-03 tablet by it y of hen 5-325 00:00: 04:59 mouth [place] mg tablet 00 :00 every 6 Medical (six) Branch hours as needed for Pain (scale 7-10) for up to 7 days. Indication s: acute pain cephALEXin 2020- No [id number] 500mg Take 1 Univers 500 mg 6-25 - capsule by ity of capsule 00:00: 04:59 mouth 4 [place] 00 :00 (four) Medical times [place] daily for 5 days. cephALEXin 2020- No [id number] 500mg Take 1 Univers 500 mg 10-03 capsule by ity of capsule 00:00: 04:59 mouth 4 [place] 00 :00 (four) Medical times [place] daily for 5 days. meperidine Yes 25mg 25 mg, Unive rs (DEMEROL) 10-02 Intramuscu ity of injection 22:11: lar, [place] 25 mg 15 Q6HPRN, Medical Starting Branch [facility] 10/02/20 at 1711, Until Discontinu ed, Routine, Pain (scale 7-10)
E nter indication for use: Anaphylact ic allergies to all other opioid formulatio ns
Facu lty member approving Restricted medication : MATT PELAYO ipratropium Yes 3mL 3 mL, Unive rs -albuteroL 10-01 Inhalation ity of (DUONEB) 14:51: , Q6HPRN, [place] 0.5 mg-3 59 Starting Medical mg(2.5 mg Tue base)/3 mL 10/01/20 at nebulizer 0951, solution 3 Until mL Discontinu ed, Routine, Wheezing furosemide Yes 40mg 40 mg, Unive rs (LASIX) 10-01 Oral, ity of tablet 40 14:00: QAM+PM, [place] mg 00 First dose Medical on Tue Branch 10/01/20 at 0900, Until Discontinu ed, Routine iron 2020- No 300mg 300 mg, IV Unive rs sucrose 09-3024 Infusion, ity of (VENOFER) 21:30: 20:00 DAILY, [place] 300 mg in 00 :55 First dose Medi molly NaCl 0.9% on Tue Branch (NS) 250 mL 09/30/20 at infusion 1630, For 4 doses vancomycin Yes 125mg 125 mg, Uni vers (VANCOCIN) 09-30 Oral, QID, ity of capsule 125 21:15: First dose [place] mg 00 on [facility] 09/30/20 at Branch 1615, Until Discontinu ed, VERN
Fa culty member approving Non-formul mary medication : TOMASA ESCAMILLA
R kelvin for non-formul mary use: SPECIFIC INDICATION FOR NONFORMULA RY PRODUCT
Reason for Anti-Infec tive: Documented Infection< br>Docu mented Infection Site: Abdominal< br>Duratio n of Therapy: 7 days proMETHazin 2020- No 12.5mg 12.5 mg, Univers e 09-30 IV ity of (PHENERGAN) 17:11: 19:59 Piggyback, [place] 12.5 mg in 58 :55 Q4HPRN, Medica l NaCl 0.9% Starting Branch (NS) 50 mL Tue IV 09/30/20 at piggyback 1211, Until Geraldine 10/02/20 at 1459, Routine, Nausea and Vomiting (N/V) meperidine 2020- No 50mg 50 mg, Univ ers (DEMEROL) 09-30 Slow IV ity of injection 17:11: 20:00 Push, [place] 50 mg 15 :07 Q4HPRN, Medical Starting Branch e 09/30/20 at 1211, Until [place] 10/02/20 at 1500, Routine, Pain (scale 7-10)
E nter indication for use: Anaphylact ic allergies to all other opioid formulatio ns
Facu lty member approving Restricted medication : SASHAARBENTOMSAA cyanocobala Yes 1000ug 1,000 mcg, Univers min 09-30 Subcutaneo ity of (VITAMIN 14:45: us, Q24H, [place] B12) 00 First dose Medical injection on e Branch 1,000 mcg 09/30/20 at 0945, Until Discontinu ed, Routine zolpidem Yes 2.5mg 2.5 mg, Unive rs (AMBIEN) 09-30 Oral, ity of tablet 2.5 03:51: QHSPRN, [place] mg 57 Starting Medical Mon Branch 09/29/20 at 2251, Until Discontinu ed, Routine, Insomnia D5W 0.45% 2020- No IV Univers NaCl 09-29 Infusion, ity of (1/2NS) 1 L 21:00: 21:15 at 100 [place] + KCL 20 00 :40 mL/hr, Medical mEq CONTINUOUS Branch , Starting 09/29/20 at 1600, Until Tue09/30/20 at 1615, Routine cholecalcif Yes 2000U 2,000 Univ ers nuno 09-29 Units, ity of (vitamin 20:00: Oral, [place] D3) tablet 00 DAILY, Medical 2,000 Units First dose Br anch on Tue09/29/20 at 1500, Until Discontinu ed, Routine lactobacill Yes .5mg 0.5 mg, Uni vers us 09-29 Oral, BID, ity of acidophilus 14:15: First dose [place] tablet 0.5 00 on Tue Medical mg 09/29/20 at Branch 0915, Until Discontinu ed, Routine KCL Yes 20meq 20 mEq, Univers (KLOR-CON 09-29 Oral, ity of M20) tablet 14:00: DAILY, [place] 20 mEq 00 First dose Medical (after Branch last reorder) on Tue09/29/20 at 0900, Until Discontinu ed, Routine lipase-prot Yes 2{capsu 2 capsule, Univers ease-amylas 09-29 le} Oral, TID ity of e (CREON) 08:45: MEALS, [place] 12,000-38,0 00 First dose Me dical 00 -60,000 on Tue Branch unit 09/29/20 at capsule 2 0345, capsule Until Discontinu ed, Routine FENTanyl PF 2020- No 50ug 50 mcg, Un marline (SUBLIMAZE 09-29 Slow IV ity o f (PF)) 08:40: 17:13 Push, [place] injection 42 :17 Q4HPRN, Medical 50 mcg Starting Branch 09/29/20 at 0340, Until Tue09/30/20 at 1213, Routine, Pain (scale 7-10) piperacilli 2020- No 3.375g 3.375 g, Univers n-tazobacta 09-29 IV ity of m (ZOSYN) 07:45: 21:11 [place], [place] 3.375 g in 00 :52 Q8H ABX, Medic al NaCl 0.9% First dose Bran ch (NS) 100 mL (after MINI-BAG last reorder) on 09/29/20 at 0245, Until Discontinu ed, 100 mL
Reas on for Anti-Infec tive: Documented Infection< br>Documen josemanuel Infection Site: Abdominal< br>Duratio n of Therapy: Other (see Comments) NaCl 0.9% 2020- No 1000mL at 100 Uni vers (NS) IV 09-29 mL/hr, IV ity of infusion 07:45: 19:49 Infusion, [place] 1,000 mL 00 :12 CONTINUOUS Medic al , Starting Branch 09/29/20 at 0245, Until 09/29/20 at 1449, Routine NaCl 0.9% 2020- No 2000mL at 999 Uni vers (NS) IV 09-29 mL/hr, ity of infusion 07:45: 09:04 Intravenou [place] 2,000 mL 00 :00 s, ONCE, 1 Medic al dose, Mon Branch 09/29/20 at 0245, Routine FENTanyl PF No 50ug 50 mcg, Un marline (SUBLIMAZE 09-29 Slow IV ity o f (PF)) 07:30: 06:27 Push, [place] injection 00 :00 ONCE, 1 Medical 50 mcg dose, [facility] Branch 09/29/20 at 0230, Routine piperacilli No 3.375g 3.375 g, Univers n-tazobacta 09-29 IV ity of m (ZOSYN) 07:30: 07:00 [place], [place] 3.375 g in 00 :00 ONCE, 1 Medica l NaCl 0.9% dose, [facility] h (NS) 100 mL 09/29/20 at MINI-BAG 0230, 100 mL
Reas on for Anti-Infec tive: Documented Infection< br>Documen josemanuel Infection Site: Abdominal< br>Duratio n of Therapy: Other (see Comments) pantoprazol No 40mg 40 mg, IV Univers e 09-29 Piggyback, ity of (PROTONIX) 06:45: 21:11 Q12H, [place] 40 mg in 00 :56 First dose Medic al NaCl 0.9% on Mon Branch (NS) 100 mL 09/29/20 at MINI-BAG 0145, Until Discontinu ed, 100 mL lactobacill 2020- No 1{tbl} 1 tablet, Univers us 09-29 Oral, BID, ity of acidophilus 06:45: 14:05 First dose [place] (ACIDOPHILL 00 :17 on Mon Medica l US) 25 09/29/20 at Branch million 0145, cell -100 Until mg captab 1 Discontinu tablet ed, Routine ondansetron Yes 4mg 4 mg, Slow Univers (ZOFRAN 09-29 IV Push, ity of (PF)) 06:42: Q6HPRN, [place] injection 4 17 Starting Medi molly mg [facility] 09/29/20 at 0142, Until Discontinu ed, Routine, Nausea and Vomiting (N/V) iopamidol 2020- No [id number] 100mL 100 mL, Univers (ISOVUE 09-29 Intravenou ity o f 370-500 mL) 06:00: 04:53 s, ONCE, 1 [place] injection 00 :00 dose, Mon Medic al 100 mL 09/29/20 at Branch 0100, Routine KCL No 40meq 40 mEq, Univers (KLOR-CON 09-29 Oral, ity of M20) tablet 05:45: 05:15 ONCE, 1 [place] 40 mEq 00 :00 dose, Mon Medical 09/29/20 at Branch 0045, Routine ondansetron 2020- No 4mg 4 mg, Slow Univers (ZOFRAN 09-29 IV Push, ity of (PF)) 05:45: 05:14 ONCE, 1 [place] injection 4 00 :00 dose, Mon Med ical mg 09/29/20 at Branch 0045, VERN FENTanyl PF No 50ug 50 mcg, Un marline (SUBLIMAZE 09-29 Slow IV ity o f (PF)) 05:45: 05:14 Push, [place] injection 00 :00 ONCE, 1 Medical 50 mcg dose, [facility] 09/29/20 at 0045, Routine NaCl 0.9% 2020- No 1000mL at 999 Uni vers (NS) IV 09-29 06-21 mL/hr, ity of infusion 05:45: 06:38 Intravenou [place] 1,000 mL 00 :45 s, Medical CONTINUOUS Branch , Starting 09/29/20 at 0045, Until 09/29/20 at 0138, Routine Meloxicam Meloxicam 2020- No Gm [address] [facility] 09-17 [facility] flu vaccine 2019- No .5mL 0.5 mL, Un marline 6 months 08-10-02 Intramuscu ity of and up 20:51: 20:54 lar, ONCE, [place] (FLUZONE 00 :00 1 dose, Medical QUAD 08/11/19 Branch at 1600, (PF)) Routine syringe 0.5 mL lactulose 2019- No 30mL Take 30 mL U nivers 10 gram/15 08-10 by mouth 2 it y of mL oral 19:53: 00:00 (two) [place] solution 33 :00 times Medical daily. Branch iohexol 2019- No 120mL 120 mL, Unive rs (OMNIPAQUE 08-10 Intravenou it y of 350 15:00: 14:46 s, ONCE, 1 [place] BULK-100 00 :00 dose, Sat Medica l mL) 08/11/19 at Branch injection 1000, 120 mL Routine ondansetron Yes 4mg 4 mg, Slow Univers (ZOFRAN 5-02 IV Push, ity of (PF)) 03:30: Q4HPRN, [place] injection 4 00 Starting Medi molly mg 08/10/19 Branch at 2230, Until Discontinu ed, Routine, Nausea and Vomiting (N/V) acetaminoph 2019-0 Yes 1{tbl} Take 1 Univers en-codeine 5-02 tablet by ity of 300-30 mg 00:00: mouth [place] tablet 00 every 4 Medical (four) Branch hours as needed for Pain (scale 4-6). acetaminoph 2019-0 Yes 1{tbl} Take 1 Univers en-codeine 5-02 tablet by ity of 300-30 mg 00:00: mouth [place] tablet 00 every 4 Medical (four) Branch hours as needed for Pain (scale 4-6). acetaminoph 2020-0 Yes 1{tbl} Take 1 Univers en-codeine 5-02 tablet by ity of 300-30 mg 00:00: mouth [place] tablet 00 every 4 Medical (four) Branch hours as needed for Pain (scale 4-6). acetaminoph 2020-0 Yes 1{tbl} Take 1 Univers en-codeine 5-02 tablet by ity of 300-30 mg 00:00: mouth [place] tablet 00 every 4 Medical (four) Branch hours as needed for Pain (scale 4-6). acetaminoph 2020-0 Yes 1{tbl} Take 1 Univers en-codeine 5-02 tablet by ity of 300-30 mg 00:00: mouth [place] tablet 00 every 4 Medical (four) Branch hours as needed for Pain (scale 4-6). acetaminoph 2020-0 Yes 1{tbl} Take 1 Univers en-codeine 5-02 tablet by ity of 300-30 mg 00:00: mouth [place] tablet 00 every 4 Medical (four) Branch hours as needed for Pain (scale 4-6). acetaminoph 2020-0 Yes 1{tbl} Take 1 Univers en-codeine 5-02 tablet by ity of 300-30 mg 00:00: mouth [place] tablet 00 every 4 Medical (four) Branch hours as needed for Pain (scale 4-6). acetaminoph 2020-0 Yes 1{tbl} Take 1 Univers en-codeine 5-02 tablet by ity of 300-30 mg 00:00: mouth [place] tablet 00 every 4 Medical (four) Branch hours as needed for Pain (scale 4-6). acetaminoph 2020-0 Yes 1{tbl} Take 1 Univers en-codeine 5-02 tablet by ity of 300-30 mg 00:00: mouth [place] tablet 00 every 4 Medical (four) Branch hours as needed for Pain (scale 4-6). lactulose 2019-0 2020- No [id number] 30mL Take 30 mL Univers 10 gram/15 5-02 -02 by mouth 2 it y of mL oral 00:00: 04:59 (two) [place] solution 00 :00 times Medical daily for Branch 30 days. pantoprazol 2019-0 2020- No [id number] 40mg Take 1 Univers e 40 mg EC 08-10 tablet by ity of tablet 00:00: 04:59 mouth [place] 00 :00 daily for Medical 30 days. Branch lactulose 2019-0 2020- No [id number] 30mL Take 30 mL Univers 10 gram/15 08-10 by mouth 2 it y of mL oral 00:00: 04:59 (two) [place] solution 00 :00 times Medical daily for Branch 30 days. pantoprazol 2019-2019- No [id number] 40mg Take 1 Univers e 40 mg EC 08-10 tablet by ity of tablet 00:00: 04:59 mouth [place] 00 :00 daily for Medical 30 days. Branch propranolol 2019- No [id number] 10mg Take 1 Univers 10 mg 08-10 tablet by ity of tablet 00:00: 00:00 mouth 2 [place] 00 :00 (two) Medical times Branch daily for 30 days. ibuprofen 0 Yes 600mg 600 mg, Univ ers (IBU) 08-09 Oral, ity of tablet 600 20:57: Q6HPRN, [place] mg 31 Starting Medical Tue08/10/19 Branch at 1557, Until Discontinu ed, Routine, Pain (scale 1-3) enoxaparin 0 Yes 40mg 40 mg, Unive rs (LOVENOX) 08-09 Subcutaneo ity of injection 14:00: us, DAILY, [place] 40 mg 00 First dose Medical on Tue Branch 08/10/19 at 0900, Until Discontinu ed, Routine pantoprazol 0 Yes 40mg 40 mg, IV U nivers e 08-09 Piggyback, ity of (PROTONIX) 13:00: Q12H, [place] 40 mg in 00 First dose Medic al NaCl 0.9% on Tue Branch (NS) 100 mL 08/10/19 at MINI-BAG 0800, Until Discontinu ed, 100 mL LORazepam 2019- No .25mg 0.25 mg, Un marline (ATIVAN) 08-09 Slow IV ity of injection 11:00: 11:00 Push, [place] 0.25 mg 00 :00 ONCE, 1 Medical dose, Tue Branch 08/10/19 at 0600, Routine D5W-LR IV 2019- Yes 1000mL at 100 Univ ers infusion 5-01 mL/hr, IV ity of 1,000 mL 10:30: Infusion, [place] 00 CONTINUOUS Medical , Starting Branch Tue08/10/19 at 0530, Until Discontinu ed, Routine FENTanyl PF Yes 50ug 50 mcg, Uni vers (SUBLIMAZE 08-09 Slow IV ity of (PF)) 09:22: Push, [place] injection 46 Q4HPRN, Medical 50 mcg Starting Branch Tue08/10/19 at 0422, Until Discontinu ed, Routine, Pain (scale 4-6) ondansetron 2019- No 4mg 4 mg, Slow Univers (ZOFRAN 08-09 IV Push, ity of (PF)) 08:55: 03:29 Q6HPRN, [place] injection 4 07 :20 Starting Medi molly mg Tue08/10/19 Branch at 0355, Until Tue08/10/19 at 2229, Routine, Nausea and Vomiting (N/V) ibuprofen 2020- No 600mg Take 1 Univ ers 600 mg 09-26 tablet by ity of tablet 00:00: 00:00 mouth [place] 00 :00 every 6 Medical (six) Branch hours as needed for Pain (scale 4-6). cyclobenzap 2020- No 10mg Take 1 Uni vers rine 10 mg 09-26 tablet by ity of tablet 00:00: 00:00 mouth 3 [place] 00 :00 (three) Medical times Branch daily. traMADOL 2016-04 2020- No 50mg Take 1 Univer s (ULTRAM) 50 04-26 tablet by it y of mg tablet 00:00: 00:00 mouth [place] 00 :00 every 6 Medical (six) Branch hours as needed for Pain (scale 4-6). hydrocortis 2016-04 2020- No 25mg Insert 1 U nivers one 04-26 Suppositor ity of (ANUSOL-HC) 00:00: 00:00 y into [place] 25 mg 00 :00 rectum 2 Medical suppository (two) Branch times daily. hydrocortis 2016-04 2020- No Insert Uni vers one 04-26 into ity of (ANUSOL-HC) 00:00: 00:00 rectum 2 [place] 2.5 % 00 :00 (two) Medical rectal times Branch cream daily. Oseltamivir Oseltamivir Yes Mg not [facility] Phosphate Phosphate Singh defined [...] #3 #[facility] Immunizations Ordered Filled Immunization Date Status Comments [facility] Immunization Name Name Pneumococcal 2020-10-03 Completed [place] o f Polysaccharide, 00:00:00 [facility] ical PPSV23 (PNEUMOVAX) Branch Pneumococcal 2020-10-03 Completed [place] o f Polysaccharide, 00:00:00 [facility] ical PPSV23 (PNEUMOVAX) Branch Pneumococcal 2020-10-03 Completed [place] o f Polysaccharide, 00:00:00 [facility] ical PPSV23 (PNEUMOVAX) Branch Pneumococcal 2020-10-03 Completed [place] o f Polysaccharide, 00:00:00 [facility] ical PPSV23 (PNEUMOVAX) Branch Pneumococcal 2020-10-03 Completed [place] o f Polysaccharide, 00:00:00 [facility] ical PPSV23 (PNEUMOVAX) Branch SARS-COV-2 COVID-19 2020-08-08 Completed Unive [facility] of MODERNA VACCINE 00:00:00 [facility] SARS-COV-2 COVID-19 2020-08-08 Completed Unive rsity of MODERNA VACCINE 00:00:00 [facility] Branch SARS-COV-2 COVID-19 2020-08-08 Completed Unive rsity of MODERNA VACCINE 00:00:00 [facility] SARS-COV-2 COVID-19 2020-08-08 Completed Unive rsity of MODERNA VACCINE 00:00:00 [facility] Branch SARS-COV-2 COVID-19 2020-08-08 Completed Unive rsity of MODERNA VACCINE 00:00:00 [facility] SARS-COV-2 COVID-19 2020-08-08 Completed Unive rsity of MODERNA VACCINE 00:00:00 [facility] SARS-COV-2 COVID-19 2020-07-11 Completed Unive rsity of MODERNA VACCINE 00:00:00 [facility] SARS-COV-2 COVID-19 2020-07-11 Completed Unive rsity of MODERNA VACCINE 00:00:00 [facility] SARS-COV-2 COVID-19 2020-07-11 Completed Unive rsity of MODERNA VACCINE 00:00:00 [facility] SARS-COV-2 COVID-19 2020-07-11 Completed Unive rsity of MODERNA VACCINE 00:00:00 [facility] SARS-COV-2 COVID-19 2020-07-11 Completed Unive rsity of MODERNA VACCINE 00:00:00 [facility] SARS-COV-2 COVID-19 2020-07-11 Completed Unive rsity of MODERNA VACCINE 00:00:00 [facility] Influenza Virus 2019-08-11 Completed Universit y of Vaccine Quad .5 mL 00:00:00 [facility] 6+ MO Branch Influenza Virus 2019-08-11 Completed Universit y of Vaccine [place] .5 mL 00:00:00 [facility] IM 6+ MO Branch Influenza Virus 2019-08-11 Completed Universit y of Vaccine [place] .5 mL 00:00:00 [facility] IM 6+ MO Branch Influenza Virus 2019-08-11 Completed Universit y of Vaccine [place] .5 mL 00:00:00 [facility] IM 6+ MO Branch Influenza Virus 2019-08-11 Completed Universit y of Vaccine [place] .5 mL 00:00:00 [facility] IM 6+ MO Branch Influenza Virus 2019-08-11 Completed Universit y of Vaccine Quad .5 mL 00:00:00 [facility] IM 6+ MO Branch Influenza Virus 2019-08-11 Completed Universit y of Vaccine Quad .5 mL 00:00:00 [facility] IM 6+ MO Branch Influenza Virus 2019-08-11 Completed Universit y of Vaccine [place] .5 mL 00:00:00 [facility] IM 6+ MO Branch Influenza Virus 2019-08-11 Completed Universit y of Vaccine [place] .5 mL 00:00:00 [facility] IM 6+ MO Branch Vital Signs Vital Name Observation Time Observation Value Comments Source Systolic blood 2020-10-03 17:23:00 132 mm[Hg] Univer sity of pressure [facility] Diastolic blood 2020-10-03 17:23:00 56 mm[Hg] Unive rsity of pressure [facility] Heart rate 2020-10-03 17:23:00 88 /[facility] 2020-10-03 17:23:00 36.94 Sandee [facility] Respiratory rate 2020-10-03 17:23:00 18 /min [facility] Oxygen saturation in 2020-10-03 17:23:00 94 /min University of Arterial blood by [place] [facility] molly Pulse oximetry Branch Body weight 2020-09-30 08:11:00 121.473 kg [facility] BMI 2020-09-30 08:11:00 47.44 kg/m2 [facility] Body height 2020-09-29 03:33:00 160 cm [facility] Diastolic blood 2019-08-11 20:04:00 44 mm[Hg] Unive rsity of pressure [facility] Heart rate 2019-08-11 20:04:00 70 /min Universi [facility] Body temperature 2019-08-11 20:04:00 36.61 Sandee [facility] Respiratory rate 2019-08-11 20:04:00 18 /min [facility] Oxygen saturation in 2019-08-11 20:04:00 91 /min University of Arterial blood by [place] [facility] molly Pulse oximetry Branch Systolic blood 2019-08-11 20:04:00 107 mm[Hg] Univer sity of pressure [facility] Body height 2019-08-10 08:01:00 162.6 cm Universi ty of [facility] Body weight 2019-08-10 08:01:00 119.296 kg Universi ty of [facility] BMI 2019-08-10 08:01:00 45.14 kg/m2 Universi ty [facility] Diastolic blood 2019-08-11 20:04:00 44 mm[Hg] Unive rsity [facility] Heart rate 2019-08-11 20:04:00 70 /min Universi ty [facility] Body temperature 2019-08-11 20:04:00 36.61 Sandee [facility] Respiratory rate 2019-08-11 20:04:00 18 /min [facility] Oxygen saturation in 2019-08-11 20:04:00 91 /min [facility] Arterial blood by [facility] Pulse oximetry Branch Systolic blood 2019-08-11 20:04:00 107 mm[Hg] Univer sity of [facility] Body height 2019-08-10 08:01:00 162.6 cm Universi ty [facility] Body weight 2019-08-10 08:01:00 119.296 kg Universi ty [facility] BMI 2019-08-10 08:01:00 45.14 kg/m2 [facility] Procedures Procedure Date / Time Performing Clinician Source Performed ASSIGNMENT OF BENEFITS 2021-03-10 20:29:46 Doctor Unassigned, Un [facility] [place] Medical Branch PHOSPHORUS 2020-10-03 08:52:00 Brenda Teixeira [facility] MAGNESIUM 2020-10-03 08:52:00 Puneet [facility] COMP. METABOLIC PANEL 2020-10-03 08:52:00 Brenda Teixeira [facility] ([id number]) [facility] CBC WITH DIFF 2020-10-03 08:52:00 [facility]OLIC PANEL 2020-10-02 08:39:00 Brenda Teixeira [facility] ([id number]) [facility] CBC WITH DIFF 2020-10-02 08:39:00 Brenda Teixeira [facility] US DUPLEX VENOUS ARM LEFT 2020-10-01 16:22:[address] [facility] - BY VASCULAR LAB [facility] COMP. METABOLIC PANEL 2020-10-01 07:45:00 Tomasa Escamilla [facility] ([id number]) [facility] CBC WITH DIFF 2020-10-01 07:45:00 [facility] TROPONIN I 2020-09-30 10:56:00 Marco Levy [facility] COMP. METABOLIC PANEL 2020-09-30 10:56:00 Millie [facility] ([id number]) [facility] CBC WITH DIFF 2020-09-30 10:56:[address] [facility] N-TERMINAL PRO-BNP 2020-09-30 08:05:00 Millie [facility] OCCULT (GUAIAC) BLOOD 2020-09-30 02:10:00 Millie [facility] FECAL LEUKOCYTES 2020-09-30 02:10:00 Millie [facility] CLOSTRIDIUM DIFFICILE 2020-09-30 02:10:00 Millie [facility] FECAL PATHOGENS BY PCR 2020-09-30 02:10:00 Millie lan [facility] POCT GLUCOSE (AUTOMATED) 2020-09-30 00:35:00 Rene Evans [facility] BASIC METABOLIC PANEL 2020-09-29 21:11:00 Millie lan [facility] (NA, K, CL, CO2, GLUCOSE, Medica l Branch BUN, CREATININE, CA) HEMOGLOBIN 2020-09-29 21:11:00 Tomasa Escamilla [facility] TRANSTHORACIC ECHO (TTE) 2020-09-29 16:03:00 Marco Levy [facility] HB ECG ROUTINE & RHYTHM 2020-09-29 11:18:58 Wes Brito [facility] OSMOLALITY URINE 2020-09-29 08:56:00 Millie lan [facility] URINE CULTURE 2020-09-29 08:56:00 Millie lan [facility] SODIUM, URINE RANDOM 2020-09-29 08:56:00 Millie lan [facility] PROTEIN CREAT RATIO URINE 2020-09-29 08:56:00 [facility] BLOOD CULTURE SCREEN 2020-09-29 08:32:00 Wes Brito [facility] LACTIC ACID WHOLE BLOOD 2020-09-29 08:32:00 Millie lan [facility] VITAMIN B12, LEVEL 2020-09-29 08:31:00 Millie lan [facility] C-REACTIVE PROTEIN 2020-09-29 08:31:00 Millie lan [facility] IRON PANEL 2020-09-29 08:31:00 Millie lan [facility] SEDIMENTATION RATE 2020-09-29 08:31:00 Millie [facility] DIFF CONSULT 2020-09-29 08:31:00 Millie [facility] CBC WITH DIFF 2020-09-29 08:31:[address] [facility] PROTHROMBIN TIME / INR 2020-09-29 08:31:00 Wes Brito [facility] N-TERMINAL PRO-BNP 2020-09-29 08:31:00 Millie lan [facility] hospital VITAMIN D, 25-OH 2020-09-29 08:31:00 Millie [facility] PROCALCITONIN 2020-09-29 08:31:00 Millie lan [facility] COVID-19 (ID NOW RAPID 2020-09-29 05:10:00 Rene Evans [facility] TESTING) Medical Branch LAB ONLY COVID 2020-09-29 05:10:00 Rene Evans [facility] CT ABDOMEN PELVIS W 2020-09-29 04:56:31 Rene Evans [facility] CONTRAST Medical Branch URINALYSIS 2020-09-29 04:19:00 Rene Evans [facility] PHOSPHORUS 2020-09-29 03:54:[address] [facility] CREATINE KINASE 2020-09-29 03:54:[address] [facility] URIC ACID 2020-09-29 03:54:00 Millie lan [facility] LIPASE 2020-09-29 03:54:00 Rene Evans [facility] MAGNESIUM 2020-09-29 03:54:00 Millie lan [facility] FERRITIN SERUM 2020-09-29 03:54:[address] [facility] TROPONIN I 2020-09-29 03:54:00 Marco Levy [facility] THYROID STIMULATING 2020-09-29 03:54:00 [facility] HORMONE [facility] COMP. METABOLIC PANEL 2020-09-29 03:54:[address] [facility] ([id number]) Medical [place] LIPID PANEL ([id number])(TOTAL 2020-09-29 03:54:[address] [facility] CHOLESTEROL, [facility] TRIGLYCERIDES, HDL) CBC WITH DIFF 2020-09-29 03:54:00 Rene Evans [facility] GLYCOSYLATED HEMOGLOBIN 2020-09-29 03:54:00 Wes Brito [facility] (A1C) [facility] N-TERMINAL PRO-BNP 2020-09-29 03:54:00 Wes Brito [facility] acute hospital CONSENT/REFUSAL FOR 2020-09-29 03:18:51 Doctor Unassigned, [facility] DIAGNOSIS AND TREATMENT [place] [facility] NOTICE OF PRIVACY 2020-09-29 03:18:30 Doctor Unassigned, [facility] PRACTICES [place] Medical [facility] CT ABDOMEN PELVIS W 2019-08-11 14:50:46 [facility] CONTRAST [facility] COMP. METABOLIC PANEL 2019-08-11 08:00:00 Wes Brito [facility] ([id number]) Medical Branch CBC WITH DIFFERENTIAL 2019-08-11 08:00:00 Wes Brito [facility] CBC WITH DIFFERENTIAL 2019-08-11 08:00:00 Wes Brito [facility] XR SMALL BOWEL SERIES 2019-08-10 21:18:47 Valente Piña [facility] XR ABDOMEN 1 VW 2019-08-10 11:52:[address] [facility] PHOSPHORUS 2019-08-10 11:11:[address] [facility] CREATINE KINASE 2019-08-10 11:11:[address] [facility] AMYLASE 2019-08-10 11:11:[address] [facility] LIPASE 2019-08-10 11:11:[address] [facility] MAGNESIUM 2019-08-10 11:11:[address] [facility] TEST, SERUM 2019-08-10 11:11:00 Millie lan [facility] THYROID STIMULATING 2019-08-10 11:11:00 [facility] HORMONE [facility] COMP. METABOLIC PANEL 2019-08-10 11:11:00 Wes Brito [facility] ([id number]) [facility] LIPID PANEL (25973)(TOTAL 2019-08-10 11:11:[address] [facility] CHOLESTEROL, [facility] TRIGLYCERIDES, HDL) SEDIMENTATION RATE 2019-08-10 11:11:00 Wes Brito [facility] acute [facility] CBC WITH DIFFERENTIAL 2019-08-10 11:11:00 Wes Brito [facility] GLYCOSYLATED HEMOGLOBIN 2019-08-10 11:11:00 Wes Brito [facility] (A1C) [facility] PROTHROMBIN TIME / INR 2019-08-10 11:11:00 Wes Brito [facility] CORONAVIRUS COVID-19 2019-08-10 09:04:00 Wes Brito Univers ity [facility] Encounters Start End Encounter Admission Attending Care Care Encounter Source Date/Time Date/Time Type Type Clinicians Facility Department ID 2021-02-09 Emergency [facility] [id number] Univers 02:25:27 ity of [facility] 2021-03-11 2021-03-11 Telephone VERONIQUE Cruz [id number] Univers 00:00:00 00:00:00 Frances SÁNCHEZ [id number] it y of [facility] [id number] Quang as [id number] [facility] 019 [place] 2021-03-10 2021-03-10 Outpatient R NETTIE [facility] [id number] Univers 14:45:00 14:51:40 LEXIE ity [facility] 2021-03-10 2021-03-10 Outpatient R [facility] [id number] Univers 14:45:00 14:45:00 [id number] ity [facility] 2021-03-10 2021-03-10 Laboratory Only, Ang Db Test [facility] 1.2.8 [id number] Univers 14:29:53 14:44:53 Only Unknown, Attending HEALTH [id number] ity of [facility] [id number] Quang as MARINA?BLEA [phone] Vt dical [address] MEDICAL OFFICE BUILDING 2021-03-10 2021-03-10 Orders Doctor VERONIQUE [id number] Univers 00:00:00 00:00:00 Only Unassigned, GONZALO [id number] ity of [place] [facility] [id number] Quang as [id number] [facility] 009 [place] 2021-02-18 2021-02-20 Inpatient JAIME [facility] [id number] [place] 00:00:00 00:00:00 CHERI [address] 2021-02-03 2021-02-04 Emergency X [facility] ERT [id number] Univers 21:10:00 03:21:00 GARTH ity [facility] 2020-10-212020-10-27 Inpatient SYLVIA, [facility] [id number] [place] 00:00:00 00:00:00 ROBERTH 980 Method i 2020-10-06 2020-10-06 Transition Jocelyne Taylor [id number] Univers 00:00:00 00:00:00 of Care Madiha Sotelo [id number] i ty of [place].2.[place] [id number] [facility] 403 Branch 2020-09-28 2020-10-03 [facility] Rene Evans [facility] 1.2.840. [id number] [facility] 22:23:00 13:05:00 Encounter Wes Brito [id number] ity of [place]2.686 [place] [id number] [facility] 081 Branch 2020-09-28 2020-09-28 Orders Doctor VERONIQUE 1.2.840.114 [id number] Univers 00:00:00 00:00:00 Only Unassigned, GONZALO [id number] ity of [place] [facility] [id number] Quang as [id number] [facility] 009 Branch 2020-09-09 2020-09-12 Inpatient VIKTOR BILLINGS [facility] [id number] [place] 00:00:00 00:00:00 462 Method i 2020-08-08 2020-08-08 Outpatient Sami GERMAN [facility] [id number] Univers 15:40:00 15:40:00 TERRI ity [facility] 2020-07-11 2020-07-11 Outpatient [facility] [id number] Univers 15:40:00 15:40:00 ity [facility] 2020-06-09 2020-06-22 Inpatient VIKTOR BILLINGS [facility] [id number] [place] 00:00:00 00:00:00 836 Method i 2020-03-19 2020-03-23 Inpatient JAIME, [facility] [id number] [place] 00:00:00 00:00:00 CHERI 742 Method i 2020-03-14 2020-03-18 Inpatient JAIME [facility] [id number] [place] 00:00:00 00:00:00 CHERI 157 Method i 2020-02-13 2020-02-13 Laboratory Lab, [facility] 1.2.840.114 [id number] 10:22:10 10:42:10 Only Fam Pob I Health 350.1.13.10 [place] 4.2.7.2.686 Professio [id number] nal 044 Office Building [facility] 2020-02-13 2020-02-13 Laboratory Lab, [facility] Fam Pob I [facility] 1.2 [id number] [id number] [facility] 10:22:10 10:42:10 Only [facility]ce [facility] [id number] ity of [place] 4.2.7.2.686 Quang as Professio [id number] Vt dical nal 044 [place] Office Building One 2019-09-28 2019-09-28 Outpatient [facility] [id number] [facility] 09:00:00 09:00:00 t [facility] ent Clinics 2019-09-18 2019-09-18 Outpatient [facility] [id number] [facility] 09:30:00 09:30:00 t [facility] ent Clinics 2019-08-14 2019-08-14 Transition Jocelyne Alexandra 1.2.840.114 [id number] 00:00:00 00:00:00 of Care Jovanny Souza [place] [id number] [place] 4.2.7.2.686 [id number] [facility] 2019-08-14 2019-08-14 Transition Jocelyne Alexandra 1.2.840.114 [id number] [facility] 00:00:00 00:00:00 of Care Jovanny Souza [place] [id number] ity of [place]2.7.2.[place] [id number] [place] [address] Branch 2019-08-10 2019-08-11 [facility] [id number] 02:55:00 16:09:00 Encounter Wes Amin [id number] [place] 4.2.7.2.686 [place] [id number] 2019-08-10 2019-08-11 Inpatient U MILLIE NCSASHA SHRUTI [id number] Univers 02:55:00 16:09:00 ADLAN [facility] 2019-08-10 2019-08-11 [facility] Millie [facility] [id number] Univers 02:55:00 16:09:00 Encounter [facility] 4.2.7.2.686 [facility] [id number] [address] Results Test Description Test Time Test Comments Results Result Comments Source MAGNESIUM 2020-10-03 09:34:08 Test Item Value Reference Range Interpretation Comme nts MAGNESIUM (test code = 4870588027) 1.4 mg/dL 1.7-2.4 L Lab Interpretation (test code = 22204-1) [facility]36464[facility]2020-10-03 09:33:48 Test Item Value Reference Range Interpretation Comments NA (test code = 136 mmol/L 135-145 4126350902) K (test code = 3.3 mmol/L 3.5-5.0 L 8922591589) CL (test code = 100 mmol/L 98-108 0601719681) CO2 TOTAL (test code = 33 mmol/L 23-31 H 2959806139) AGAP (test code = 2-16 7504633155) BUN (test code = 3 mg/dL 7-23 L 4973815071) GLUCOSE (test code = 95 mg/dL 70-110 6334487782) CREATININE (test code = 0.47 mg/dL 0.50-1.04 L 4556002328) TOTAL BILI (test code = 1.5 mg/dL 0.1-1.1 H 5079940977) CALCIUM (test code = 8.1 mg/dL 8.6-10.6 L 5523324775) T PROTEIN (test code = 5.9 g/dL 6.3-8.2 L 7481626266) ALBUMIN (test code = 2.9 g/dL 3.5-5.0 L 6044577054) ALK PHOS (test code = 115 U/L 34-122 0939977139) ALTv (test code = 24 U/L 5-35 2-6) AST(SGOT) (test code = 35 U/L 13-40 8259931606) eGFR (test code = mL/min/1.73m2 6257183362) SNOW (test code = SNOW) Association of Glomerular Filtration Rate (GFR) and Staging of Kidney Disease* + --+ --+ ------+| GFR (mL/min/1.73 m2) ?| With Kidney Damage ?| ?Without Kidney Damage+ --------+ --------+ +| ?>90 ?| ?Stage one ?| ? Normal ?+ ---+ ---+ -------+| ?60-89 ?| ?Stage two ?| ? Decreased GFR ? + --+ --+ ------+| ?30-59 ?| ?Stage three ?| ? Stage three ? + --+ --+ ------+| ?15-29 ?| ?Stage four ? | ? Stage four ?+ ---+ ---+ -------+| ?<15 (or dialysis) ? ?| ?Stage five ? | ? Stage five ?+ ---+ ---+ -------+ *Each stage assumes the associated GFR level has been in effect for at least three months. ?Stages 1 to 5, with or without kidney disease, indicate chronic kidney disease. Notes: Determination of stages one and two (with eGFR >59mL/min/1.73 m2) requires estimation of kidney damage for at least three months as defined by structural or functional abnormalities of the kidney, manifested by either:Pathological abnormalities or Markers of kidney damage (including abnormalities in the composition of the blood or urine or abnormalities in imaging tests). Lab Interpretation Abnormal (test code = 57155-3) [facility]28 Test Item Value Reference Range Interpretation Comments PHOSPHORUS (test code = 5284131304) 2.8 mg/dL 2.5-5.0 Lab Interpretation (test code = Normal 35260-7) [facility] WITH [id number] 09:31:46 Test Item Value Reference Range Interpretation Comments WBC (test code = See_Comment L [Automated 6690-2) message] The sy stem which generated this result transmitted reference range : 4.30 - 11.10 10*3/?L. The reference range was not used to interpret this result as normal/abnormal . RBC (test code = See_Comment L [Automated 789-8) message] The sy stem which generated this result transmitted reference range : 3.93 - 5.25 10*6/?L. The reference range was not used to interpret this result as normal/abnormal . HGB (test code = 7.7 g/dL 11.6-15.0 L 718-7) HCT (test code = 26.2 % 35.7-45.2 L 4544-3) MCV (test code = 81.1 fL 80.6-95.5 787-2) MCH (test code = 23.8 pg 25.9-32.8 L 785-6) MCHC (test code = 29.4 g/dL 31.6-35.1 L 786-4) RDW-SD (test code = 53.8 fL 39.0-49.9 H 53147-7) RDW-CV (test code = 19.9 % 12.0-15.5 H 788-0) PLT (test code = See_Comment L [Automated 777-3) message] The sy stem which generated this result transmitted reference range : 166 - 358 10*3/ ?L. The reference r davi was not used to interpret this result as normal/abnormal . MPV (test code = 10.9 fL 9.5-12.9 70816-2) IPF % (test code = 3.6 % 1.3-7.7 Platelet count 1595295172) measured by fluorescence method. NRBC/100 WBC (test See_Comment [Automat ed code = 4190340740) message] The system which generated this result transmitted reference range : 0.0 - 10.0 /100 WBCs. The refer ence range was not u sed to interpret th is result as normal/abnormal . NRBC x10^3 (test code See_Comment [Auto mated = 6157981169) message] The s ystem which generated this result transmitted reference range : 10*3/?L. The reference range was not used to interpret this result as normal/abnormal . GRAN MAT (NEUT) % 68.1 % (test code = 770-8) IMM GRAN % (test code 1.10 % = 7221065288) LYMPH % (test code = 15.5 % 736-9) MONO % (test code = 11.3 % 5905-5) EOS % (test code = 3.4 % 713-8) BASO % (test code = 0.6 % 706-2) GRAN MAT x10^3(ANC) 2.42 10*3/uL 1.88-7.09 (test code = 1706603527) IMM GRAN x10^3 (test 0.04 10*3/uL 0.00-0.06 code = 8017527523) LYMPH x10^3 (test code 0.55 10*3/uL 1.32-3.29 L = 731-0) MONO x10^3 (test code 0.40 10*3/uL 0.33-0.92 = 742-7) EOS x10^3 (test code = 0.12 10*3/uL 0.03-0.39 711-2) BASO x10^3 (test code <0.03 0.01-0.07 = 704-7) Lab Interpretation Abnormal (test code = 55718-0) [facility] WITH [id number] 10:47:09 Test Item Value Reference Range Interpretation Comments WBC (test code = See_Comment L [Automated 6690-2) message] The sy stem which generated this result transmitted reference range : 4.30 - 11.10 10*3/?L. The reference range was not used to interpret this result as normal/abnormal . RBC (test code = See_Comment L [Automated 789-8) message] The sy stem which generated this result transmitted reference range : 3.93 - 5.25 10*6/?L. The reference range was not used to interpret this result as normal/abnormal . HGB (test code = 7.7 g/dL 11.6-15.0 L 718-7) HCT (test code = 26.7 % 35.7-45.2 L 4544-3) MCV (test code = 81.4 fL 80.6-95.5 787-2) MCH (test code = 23.5 pg 25.9-32.8 L 785-6) MCHC (test code = 28.8 g/dL 31.6-35.1 L 786-4) RDW-SD (test code = 52.2 fL 39.0-49.9 H 94159-8) RDW-CV (test code = 18.6 % 12.0-15.5 H 788-0) PLT (test code = See_Comment L [Automated 777-3) message] The sy stem which generated this result transmitted reference range : 166 - 358 10*3/ ?L. The reference r davi was not used to interpret this result as normal/abnormal . MPV (test code = 10.1 fL 9.5-12.9 71253-3) IPF % (test code = 3.2 % 1.3-7.7 Platelet count 9209973419) measured by fluorescence method. NRBC/100 WBC (test See_Comment [Automat ed code = 6766521170) message] The system which generated this result transmitted reference range : 0.0 - 10.0 /100 WBCs. The refer ence range was not u sed to interpret th is result as normal/abnormal . NRBC x10^3 (test code See_Comment [Auto mated = 4863679933) message] The s ystem which generated this result transmitted reference range : 10*3/?L. The reference range was not used to interpret this result as normal/abnormal . GRAN MAT (NEUT) % 65.1 % (test code = 770-8) IMM GRAN % (test code 1.20 % = 1286766544) LYMPH % (test code = 16.9 % 736-9) MONO % (test code = 11.5 % 5905-5) EOS % (test code = 4.5 % 713-8) BASO % (test code = 0.8 % 706-2) GRAN MAT x10^3(ANC) 1.58 10*3/uL 1.88-7.09 L (test code = 4558643384) IMM GRAN x10^3 (test 0.03 10*3/uL 0.00-0.06 code = 5360347051) LYMPH x10^3 (test code 0.41 10*3/uL 1.32-3.29 L = 731-0) MONO x10^3 (test code 0.28 10*3/uL 0.33-0.92 L = 742-7) EOS x10^3 (test code = 0.11 10*3/uL 0.03-0.39 711-2) BASO x10^3 (test code <0.03 0.01-0.07 = 704-7) POLYCHROMASIA (test 2+ See_Comment [Automa josemanuel code = 75246-5) message] The system which generated this result transmitted reference range : 2+. The referen ce range was not u sed to interpret th is result as normal/abnormal . LG GRAN LYMPHS (test Rare Rare code = 9328276764) Lab Interpretation Abnormal (test code = 35456-0) [id number][facility]02 10:19:28 Test Item Value Reference Range Interpretation Comments NA (test code = 135 mmol/L 135-145 5675677352) K (test code = 3.4 mmol/L 3.5-5.0 L 4279085133) CL (test code = 104 mmol/L 98-108 4362510687) CO2 TOTAL (test code = 27 mmol/L 23-31 0141391271) AGAP (test code = 2-16 5053085121) BUN (test code = 4 mg/dL 7-23 L 1630751591) GLUCOSE (test code = 97 mg/dL 70-110 7264349886) CREATININE (test code = 0.45 mg/dL 0.50-1.04 L 1656057028) TOTAL BILI (test code = 1.7 mg/dL 0.1-1.1 H 9744704020) CALCIUM (test code = 8.2 mg/dL 8.6-10.6 L 7563430483) T PROTEIN (test code = 6.0 g/dL 6.3-8.2 L 5027970211) ALBUMIN (test code = 3.1 g/dL 3.5-5.0 L 9152637461) ALK PHOS (test code = 120 U/L 34-122 8284655084) ALTv (test code = 26 U/L 5-35 1742-6) AST(SGOT) (test code = 39 U/L 13-40 4496394692) eGFR (test code = mL/min/1.73m2 8357691646) SNOW (test code = SNOW) Association of Glomerular Filtration Rate (GFR) and Staging of Kidney Disease* + --+ --+ ------+| GFR (mL/min/1.73 m2) ?| With Kidney Damage ?| ?Without Kidney Damage+ --------+ --------+ +| ?>90 ?| ?Stage one ?| ? Normal ?+ ---+ ---+ -------+| ?60-89 ?| ?Stage two ?| ? Decreased GFR ? + --+ --+ ------+| ?30-59 ?| ?Stage three ?| ? Stage three ? + --+ --+ ------+| ?15-29 ?| ?Stage four ? | ? Stage four ?+ ---+ ---+ -------+| ?<15 (or dialysis) ? ?| ?Stage five ? | ? Stage five ?+ ---+ ---+ -------+ *Each stage assumes the associated GFR level has been in effect for at least three months. ?Stages 1 to 5, with or without kidney disease, indicate chronic kidney disease. Notes: Determination of stages one and two (with eGFR >59mL/min/1.73 m2) requires estimation of kidney damage for at least three months as defined by structural or functional abnormalities of the kidney, manifested by either:Pathological abnormalities or Markers of kidney damage (including abnormalities in the composition of the blood or urine or abnormalities in imaging tests). Lab Interpretation Abnormal (test code = 49395-5) [facility] [id number] 02:50:27COVID DMT InterpretationInterpretation/Recommendations: Molecular NAAT Tests for Active Infection with the SARS-CoV-2 Virus: The patient has currently tested negative for the SARS-CoV-2 virus that causes COVID-19 illness. This most likely indicates that the patient does not have an active infection with the SARS-CoV-2 virus. However, infection is not completely ruled out as the false negative rate for molecular NAAT testing using a nasopharyngeal sample can be up to 30%, mostly dependent on the timing of sample collection in relation to illness onset and any deficiencies in sampling techniques. If the patient has symptoms concerning for COVID-19 illness, a repeat NAAT test (PCR, Rapid ID Now, etc.) should be performed, at which time the SARS-CoV-2 virus - if present - may have reached a detectable viral load (usually peaking by the end of the first week of symptoms). Tests for IgM and/or IgGAntibodies to the SARS-CoV-2 Virus: If the patient develops COVID-19 illness in the future, testingfor IgM and IgG antibodies approximately 3 weeks after illness onset will likely indicate if the patient has produced antibodies to the SARS-CoV-2 virus. However, some patients may take longer to develop detectable antibodies, while some patients who were infected with SARS-CoV-2 may never develop antibodies. While antibodies to SARS-CoV-2 may provide some degree of immunity, at this time the strength and duration of the antibody response is unknown. Interpretation Result Comments:These interpretation comments are based upon all COVID-19 testing the patient has had at [facility], including molecular NAAT testing (more commonly known as PCR testing and Rapid ID Now testing) and antibody testing. It does not take into account any testing that a patient has had outside of the [facility] medical record. [facility] LABORATORY SERVICESCOVID Resu [id number] NAAT (no units) ? ? Date ? Value ? 02/13/2020 ? Not Detected ? SARS-CoV-2 Rapid ID NOW (no units) ? ? Date ? Value ? 09/29/2020 ? Not Detected ? ? ? 08/10/2019 ? Not Detected ? [facility] [id number] 10:31:29 Test Item Value Reference Range Interpretation Comments WBC (test code = See_Comment LL [Automated 6690-2) message] The sy stem which generated this result transmitted reference range : 4.30 - 11.10 10*3/?L. The reference range was not used to interpret this result as normal/abnormal . RBC (test code = See_Comment L [Automated 789-8) message] The sy stem which generated this result transmitted reference range : 3.93 - 5.25 10*6/?L. The reference range was not used to interpret this result as normal/abnormal . HGB (test code = 7.4 g/dL 11.6-15.0 L 718-7) HCT (test code = 25.1 % 35.7-45.2 L 4544-3) MCV (test code = 80.4 fL 80.6-95.5 L 787-2) MCH (test code = 23.7 pg 25.9-32.8 L 785-6) MCHC (test code = 29.5 g/dL 31.6-35.1 L 786-4) RDW-SD (test code = 52.3 fL 39.0-49.9 H 54768-7) RDW-CV (test code = 18.4 % 12.0-15.5 H 788-0) PLT (test code = See_Comment LL [Automated 777-3) message] The sy stem which generated this result transmitted reference range : 166 - 358 10*3/ ?L. The reference r davi was not used to interpret this result as normal/abnormal . MPV (test code = 11.2 fL 9.5-12.9 10726-4) IPF % (test code = 3.9 % 1.3-7.7 Platelet count 0178972463) measured by fluorescence method. NRBC/100 WBC (test See_Comment [Automat ed code = 4119165899) message] The system which generated this result transmitted reference range : 0.0 - 10.0 /100 WBCs. The refer ence range was not u sed to interpret th is result as normal/abnormal . NRBC x10^3 (test code <0.01 See_Comment [Auto mated = 8063742086) message] The s ystem which generated this result transmitted reference range : 10*3/?L. The reference range was not used to interpret this result as normal/abnormal . GRAN MAT (NEUT) % 57.5 % (test code = 770-8) IMM GRAN % (test code 0.50 % = 8988542563) LYMPH % (test code = 20.7 % 736-9) MONO % (test code = 13.3 % 5905-5) EOS % (test code = 6.9 % 713-8) BASO % (test code = 1.1 % 706-2) GRAN MAT x10^3(ANC) 1.08 10*3/uL 1.88-7.09 L (test code = 2797070436) IMM GRAN x10^3 (test <0.03 0.00-0.06 code = 3560207895) LYMPH x10^3 (test code 0.39 10*3/uL 1.32-3.29 L = 731-0) MONO x10^3 (test code 0.25 10*3/uL 0.33-0.92 L = 742-7) EOS x10^3 (test code = 0.13 10*3/uL 0.03-0.39 711-2) BASO x10^3 (test code <0.03 0.01-0.07 = 704-7) BASO STIPPLING (test Present A code = 703-9) ELLIPTO/OVAL (test 2+ See_Comment A [Automat ed code = 09408-8) message] The system which generated this result transmitted reference range : (none). The reference range was not used to interpret this result as normal/abnormal . POLYCHROMASIA (test 2+ See_Comment [Automa josemanuel code = 77248-4) message] The system which generated this result transmitted reference range : 2+. The referen ce range was not u sed to interpret th is result as normal/abnormal . Lab Interpretation Abnormal (test code = 82653-5) [facility]. METABOLIC PANEL ([id number])2020-10-01 09:19:22 Test Item Value Reference Range Interpretation Comments NA (test code = 135 mmol/L 135-145 0645590609) K (test code = 4.0 mmol/L 3.5-5.0 7282678395) CL (test code = 107 mmol/L 98-108 4962821499) CO2 TOTAL (test code = 24 mmol/L 23-31 0504480490) AGAP (test code = 2-16 3576312154) BUN (test code = 7 mg/dL 7-23 4457230665) GLUCOSE (test code = 93 mg/dL 70-110 0228658200) CREATININE (test code = 0.47 mg/dL 0.50-1.04 L 5032028668) TOTAL BILI (test code = 1.6 mg/dL 0.1-1.1 H 8287094737) CALCIUM (test code = 8.1 mg/dL 8.6-10.6 L 2554651307) T PROTEIN (test code = 5.8 g/dL 6.3-8.2 L 6942978194) ALBUMIN (test code = 2.8 g/dL 3.5-5.0 L 4234577561) ALK PHOS (test code = 106 U/L 34-122 1312107134) ALTv (test code = 23 U/L 5-35 1742-6) AST(SGOT) (test code = 39 U/L 13-40 5082471597) eGFR (test code = mL/min/1.73m2 7585734815) SNOW (test code = SNOW) Association of Glomerular Filtration Rate (GFR) and Staging of Kidney Disease* + --+ --+ ------+| GFR (mL/min/1.73 m2) ?| With Kidney Damage ?| ?Without Kidney Damage+ --------+ --------+ +| ?>90 ?| ?Stage one ?| ? Normal ?+ ---+ ---+ -------+| ?60-89 ?| ?Stage two ?| ? Decreased GFR ? + --+ --+ ------+| ?30-59 ?| ?Stage three ?| ? Stage three ? + --+ --+ ------+| ?15-29 ?| ?Stage four ? | ? Stage four ?+ ---+ ---+ -------+| ?<15 (or dialysis) ? ?| ?Stage five ? | ? Stage five ?+ ---+ ---+ -------+ *Each stage assumes the associated GFR level has been in effect for at least three months. ?Stages 1 to 5, with or without kidney disease, indicate chronic kidney disease. Notes: Determination of stages one and two (with eGFR >59mL/min/1.73 m2) requires estimation of kidney damage for at least three months as defined by structural or functional abnormalities of the kidney, manifested by either:Pathological abnormalities or Markers of kidney damage (including abnormalities in the composition of the blood or urine or abnormalities in imaging tests). Lab Interpretation Abnormal (test code = 47922-6) [facility] [id number] 20:47:45 Test Item Value Reference Range Interpretation Comments TROPONIN I (test 0.002 ng/mL See_Comment [Automated code = 8785052497) message] The system which generated this result transmitted reference range : <=0.034. The reference range was not used to interpret this result as normal/abnormal . SNOW (test code = Equal or Less than SNOW) 0.034 ng/ml---Normal ?Note: Cardiac troponin begins to rise 3-4 hours after the onset of ischemia. Repeat in 4-6 hours if the sample was drawn within 3-4 hours of the onset of the symptom and found normal. Between 0.035 and 0.120 ng/mL--- Borderline. Questionable myocardial injury or necrosis ? ?Note: Serial measurement may be necessary to confirm or exclude the diagnosis of myocardial injury or necrosis; Clinical correlation (symptoms, EKGs, imaging studies, and others) required; Repeat in 4-6 hours if clinically indicated. ? Equal or Higher than 0.121 ng/mL---Abnormal. Myocardial Injury or Necrosis Likely ? Biotin has been reported to cause a negative bias, interpret results relative to patient's use of biotin. ? Lab Interpretation Normal (test code = 44993-1) [facility] [id number] 19:11:57 Test Item Value Reference Range Interpretation Comments URINE CULTURE (test code <10,000 CFU/mL = 630-4) Gram-Positive Cocci [facility] BY [id number] 18:17:03 Test Item Value Reference Range Interpretation Comments Campylobacter (jejuni, Negative Negative, coli and upsaliensis) Indeterminate, (test code = 68255-5) See comment Plesiomonas shigelloides Negative Negative, (test code = 89424-6) Indeterminate, See comment Salmonella (test code = Negative Negative, 70781-2) Indeterminate, See comment Yersinia enterocolitica Negative Negative, (test code = 67822-3) Indeterminate, See comment Vibrio (test code = Negative Negative, 62685-9) Indeterminate, See comment Vibrio cholerae (test Negative Negative, code = 67321-1) Indeterminate, See comment Enteroaggregative E. Negative Negative, coli (EAEC) (test code = Indeterminate, 61721-9) See comment Enteropathogenic E. coli Negative Negative, N/A, (EPEC) (test code = Indeterminate, 57292-6) See comment Enterotoxigenic E. coli Negative Negative, (ETEC) (test code = Indeterminate, 11550-4) See comment Shiga toxin-Producing E. Negative Negative, coli (STEC) (test code = Indeterminate, 07428-9) See comment Shigella/Enteroinvasive Negative Negative, E. coli (EIEC) (test Indeterminate, code = 35506-9) See comment Cryptosporidium (test Negative Negative, code = 16763-3) Indeterminate, See comment Cyclospora cayetanensis Negative Negative, (test code = 24228-8) Indeterminate, See comment Entamoeba histolytica Negative Negative, (test code = 08305-5) Indeterminate, See comment Giardia lamblia (test Negative Negative, code = 75079-1) Indeterminate, See comment Adenovirus F 40/41 (test Negative Negative, code = 76017-2) Indeterminate, See comment Astrovirus (test code = Negative Negative, 63131-9) Indeterminate, See comment Norovirus GI/GII (test Negative Negative, code = 39455-6) Indeterminate, See comment Rotavirus A (test code = Negative Negative, 54952-3) Indeterminate, See comment Sapovirus (test code = Negative Negative, 25612-1) Indeterminate, See comment Clostridioides Positive Negative, A (Clostridium) difficile Indeterminate, Toxin A/B (test code = See comment 99688-4) SNOW (test code = SNOW) Based on [employer] GI Panel package insert, the [employer] GI Panel contains a single multiplexed assay (Cdiff) for the identification of toxigenic C. difficile which targets both the toxin A gene (tcdA) and the toxin B gene (tcdB). Typical toxigenic strains produce both toxins, but the presence of either is indicative of a pathogenic strain. Detection of either or both toxin genes by this assay gives a test result for Clostridium difficile toxin A/B Detected. Based the [employer] Xpert C. difficile/Epi assay package insert, Xpert C. difficile/Epi assay detects the toxin B gene (tcdB), the binary toxin gene (CDT), and the akxrwb-npgt-cepg deletion at nucleotide 117 within the gene encoding a negative regulator of toxin production (tcdC 117). These two assays do not target the exact same genes could explain the discrepancy results from GI panel and Cepheid assay. Please correlate the test results with patient clinical presentations for best patient care. Thanks. Hanane Regan, PHD ?09/30/2020 13:15 Negative:A negative result does not rule-out infection. ?This assay does not test for all potential infectious agents of diarrheal disease. Positive:A positive test result does not necessarily indicate the presence of viable organism. Lab Interpretation (test Abnormal code = 22976-0) [facility]AIAC[facility] [id number] 14:26:32 Test Item Value Reference Range Interpretation Comments Occult (guaiac) Blood (test code = Negative Negative 2335-8) Lab Interpretation (test code = Normal 45041-6) [facility] WITH [id number] 13:54:12 Test Item Value Reference Range Interpretation Comments WBC (test code = See_Comment L [Automated 0890-2) message] The sy stem which generated this result transmitted reference range : 4.30 - 11.10 10*3/?L. The reference range was not used to interpret this result as normal/abnormal . RBC (test code = See_Comment L [Automated 789-8) message] The sy stem which generated this result transmitted reference range : 3.93 - 5.25 10*6/?L. The reference range was not used to interpret this result as normal/abnormal . HGB (test code = 7.5 g/dL 11.6-15.0 L 718-7) HCT (test code = 26.3 % 35.7-45.2 L 4544-3) MCV (test code = 80.7 fL 80.6-95.5 787-2) MCH (test code = 23.0 pg 25.9-32.8 L 785-6) MCHC (test code = 28.5 g/dL 31.6-35.1 L 786-4) RDW-SD (test code = 52.9 fL 39.0-49.9 H 41002-5) RDW-CV (test code = 18.3 % 12.0-15.5 H 788-0) PLT (test code = See_Comment LL [Automated 777-3) message] The sy stem which generated this result transmitted reference range : 166 - 358 10*3/ ?L. The reference r davi was not used to interpret this result as normal/abnormal . MPV (test code = 10.8 fL 9.5-12.9 80317-0) IPF % (test code = 4.2 % 1.3-7.7 Platelet count 3336836708) measured by fluorescence method. NRBC/100 WBC (test See_Comment [Automat ed code = 9712231536) message] The system which generated this result transmitted reference range : 0.0 - 10.0 /100 WBCs. The refer ence range was not u sed to interpret th is result as normal/abnormal . NRBC x10^3 (test code <0.01 See_Comment [Auto mated = 2029570001) message] The s ystem which generated this result transmitted reference range : 10*3/?L. The reference range was not used to interpret this result as normal/abnormal . GRAN MAT (NEUT) % 60.0 % (test code = 770-8) IMM GRAN % (test code 0.40 % = 6307276327) LYMPH % (test code = 20.6 % 736-9) MONO % (test code = 11.3 % 5905-5) EOS % (test code = 6.9 % 713-8) BASO % (test code = 0.8 % 706-2) GRAN MAT x10^3(ANC) 1.49 10*3/uL 1.88-7.09 L (test code = 1991752284) IMM GRAN x10^3 (test <0.03 0.00-0.06 code = 7806767203) LYMPH x10^3 (test code 0.51 10*3/uL 1.32-3.29 L = 731-0) MONO x10^3 (test code 0.28 10*3/uL 0.33-0.92 L = 742-7) EOS x10^3 (test code = 0.17 10*3/uL 0.03-0.39 711-2) BASO x10^3 (test code <0.03 0.01-0.07 = 704-7) Lab Interpretation Abnormal (test code = 58996-0) [facility] ([id number])2020-09-30 12:47:49 Test Item Value Reference Range Interpretation Comments NA (test code = 135 mmol/L 135-145 3844144400) K (test code = 4.0 mmol/L 3.5-5.0 9284364269) CL (test code = 108 mmol/L 98-108 4972050452) CO2 TOTAL (test code = 23 mmol/L 23-31 0107330767) AGAP (test code = 2-16 2084344045) BUN (test code = 8 mg/dL 7-23 9282879759) GLUCOSE (test code = 109 mg/dL 70-110 7956021380) CREATININE (test code = 0.52 mg/dL 0.50-1.04 4456207769) TOTAL BILI (test code = 1.7 mg/dL 0.1-1.1 H 3710627013) CALCIUM (test code = 8.0 mg/dL 8.6-10.6 L 3771336075) T PROTEIN (test code = 5.7 g/dL 6.3-8.2 L 9639301859) ALBUMIN (test code = 2.7 g/dL 3.5-5.0 L 2730645928) ALK PHOS (test code = 106 U/L 34-122 0905505235) ALTv (test code = 22 U/L 5-35 1742-6) AST(SGOT) (test code = 34 U/L 13-40 6290364384) eGFR (test code = mL/min/1.73m2 7057792682) SNOW (test code = SNOW) Association of Glomerular Filtration Rate (GFR) and Staging of Kidney Disease* + --+ --+ ------+| GFR (mL/min/1.73 m2) ?| With Kidney Damage ?| ?Without Kidney Damage+ --------+ --------+ +| ?>90 ?| ?Stage one ?| ? Normal ?+ ---+ ---+ -------+| ?60-89 ?| ?Stage two ?| ? Decreased GFR ? + --+ --+ ------+| ?30-59 ?| ?Stage three ?| ? Stage three ? + --+ --+ ------+| ?15-29 ?| ?Stage four ? | ? Stage four ?+ ---+ ---+ -------+| ?<15 (or dialysis) ? ?| ?Stage five ? | ? Stage five ?+ ---+ ---+ -------+ *Each stage assumes the associated GFR level has been in effect for at least three months. ?Stages 1 to 5, with or without kidney disease, indicate chronic kidney disease. Notes: Determination of stages one and two (with eGFR >59mL/min/1.73 m2) requires estimation of kidney damage for at least three months as defined by structural or functional abnormalities of the kidney, manifested by either:Pathological abnormalities or Markers of kidney damage (including abnormalities in the composition of the blood or urine or abnormalities in imaging tests). Lab Interpretation Abnormal (test code = 99437-3) [facility]FECAL [id number] 11:49:39 Test Item Value Reference Range Interpretation Comments Fecal Leukocytes (test code = Positive Negative A 5406735273) Lab Interpretation (test code = Abnormal 22192-2) [facility] HospitalN-TERMINAL [id number] 10:20:53 Test Item Value Reference Range Interpretation Comments NT-proBNP (test code 68 pg/mL See_Comment [Autom ated = 3712143743) message] The system which generated this result transmitted reference range : <=125. The reference range was not used to interpret this result as normal/abnormal . SNOW (test code = SNOW) Biotin has been reported to cause a negative bias, interpret results relative to patient's use of biotin. Lab Interpretation Normal (test code = 75932-8) [facility] HospitalCLOSTRIDIUM DIFFICILE [id number] 05:18:16 Test Item Value Reference Range Interpretation Comments Clostridioides (Clostridium) Negative Negative difficile (test code = 14552-1) Lab Interpretation (test code = Normal 15742-6) [facility] Hospital[facility]ONV GLUCOSE (AUTOMATED)2020-09-30 00:54:42 Test Item Value Reference Range Interpretation Comments POCT GLU (test code = 9020741698) 111 mg/dL 70-110 H Lab Interpretation (test code = Abnormal 37986-2) [facility] METABOLIC PANEL (NA, K, CL, CO2, GLUCOSE, BUN, CREATININE, CA)2020-09-29 22:08:22 Test Item Value Reference Range Interpretation Comments NA (test code = 135 mmol/L 135-145 8433500065) K (test code = 3.7 mmol/L 3.5-5.0 1562952421) CL (test code = 108 mmol/L 98-108 6753249677) CO2 TOTAL (test code = 22 mmol/L 23-31 L 3336791652) AGAP (test code = 2-16 6851306236) BUN (test code = 9 mg/dL 7-23 7855754055) GLUCOSE (test code = 104 mg/dL 70-110 2009474527) CREATININE (test code = 0.51 mg/dL 0.50-1.04 3973240634) CALCIUM (test code = 7.9 mg/dL 8.6-10.6 L 7234878383) eGFR (test code = mL/min/1.73m2 1599105977) SNOW (test code = SNOW) Association of Glomerular Filtration Rate (GFR) and Staging of Kidney Disease* + --+ --+ ------+| GFR (mL/min/1.73 m2) ?| With Kidney Damage ?| ?Without Kidney Damage+ --------+ --------+ +| ?>90 ?| ?Stage one ?| ? Normal ?+ ---+ ---+ -------+| ?60-89 ?| ?Stage two ?| ? Decreased GFR ? + --+ --+ ------+| ?30-59 ?| ?Stage three ?| ? Stage three ? + --+ --+ ------+| ?15-29 ?| ?Stage four ? | ? Stage four ?+ ---+ ---+ -------+| ?<15 (or dialysis) ? ?| ?Stage five ? | ? Stage five ?+ ---+ ---+ -------+ *Each stage assumes the associated GFR level has been in effect for at least three months. ?Stages 1 to 5, with or without kidney disease, indicate chronic kidney disease. Notes: Determination of stages one and two (with eGFR >59mL/min/1.73 m2) requires estimation of kidney damage for at least three months as defined by structural or functional abnormalities of the kidney, manifested by either:Pathological abnormalities or Markers of kidney damage (including abnormalities in the composition of the blood or urine or abnormalities in imaging tests). Lab Interpretation Abnormal (test code = 69172-0) [facility] HospitalHEMOGLOBIN2021-[facility] 21:41:20 Test Item Value Reference Range Interpretation Comments HGB (test code = 718-7) 7.4 g/dL 11.6-15.0 L Lab Interpretation (test code = Abnormal 61924-4) [facility] HospitalVITAMIN B12, [id number] 20:39:52 Test Item Value Reference Range Interpretation Comments VIT B12 (test code = 212 pg/mL 240-930 L 8970401837) SNOW (test code = SNOW) Biotin has been reported to cause a positive bias, interpret results relative to patient's use of biotin. Lab Interpretation (test Abnormal code = 54478-6) [facility] HospitalDIFF CONSULT [id number] 17:24:18 LEUKOPENIA WITH ABSOLUTE LYMPHOPENIA, REACTIVE MONOCYTES AND TOXIC NEUTROPHILS INCLUDING OCCASIONAL VACUOLATED NEUTROPHILS SUGGESTIVE OF SYSTEMIC INFECTION/INFLAMMATION. EXCLUDE SEPSIS AND VIRAL INFECTION INCLUDING COVID-19. HYPERSEGMENTED NEUTROPHILS NOTED; SUGGEST VITAMIN B12 AND FOLATE LEVELS TO EX CLUDE EARLY DEFICIENCY. MICROCYTIC HYPOCHROMIC ANEMIA WITH POLYCHROMASIA AND ANISOPOIKILOCYTOSIS INCLUDING ELLIPTOCYTES. EXCLUDE ANATOMIC SOURCE OF BLOOD LOSS. EXCLUDE HEMOLYSIS. GIVEN LOW IRON AND BORDERLINE LOW FERRITIN, SUGGEST IRON SUPPLEMENTATION. 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.[facility] [id number] 17:01:56 Test Item Value Reference Range Interpretation Comments CRP (test code = 5622738347) 4.7 mg/dL <0.8 H Lab Interpretation (test code = Abnormal 41096-6) [facility]IN D, [id number] 16:43:29 Test Item Value Reference Range Interpretation Comments VIT D 25OH (test code = <13 25-80 L 63452-5) SNOW (test code = SNOW) Deficiency: <20 ng/mLInsufficiency: 20-24 ng/mLOptimal: 25-80 ng/mL Lab Interpretation (test Abnormal code = 71418-8) [facility]PROCALCITONIN2021-06-21 16:15:30 Test Item Value Reference Range Interpretation Comments Procalcitonin (test 0.08 ng/mL <0.07 H code = 8262345552) SNOW (test code = SNOW) INTERPRETATION OF PROCALCITONIN RESULTS IN ADULTS >= 18 YEARS OF AGE Initiation and discontinuation of antibiotics on patients with suspected or confirmed Lower Respiratory Tract Infection in Adults >= 18 years of age. + +-------- --------+ + -----+|Procalcitonin |Interpretation ?|Antibiotic ? ? |Considerations ? |ng/mL ? | ?|recommendation | ? + +-------- --------+ + -----+| <0.1 ? | Bacterial ? ? ?| Strongly ? ? ?| ? | ?| infection very | discouraged ? | Overruling: ? | ?| unlikely ? ? ? | ? | ? Clinically unstable ? ? ? + +-------- --------+ + ? High risk for adverse ? ? | <0.25 ?| Bacterial ? ? ?| Discouraged ? | ? outcome ? | ?| infection ? ? ?| ? | ? SEE IMPORTANT NOTE ?| ?| unlikely ? ? ? | ? | ? + +-------- --------+ + -----+| >=0.25 ? ? ? | Bacterial ? ? ?| Encouraged ? ?| ? | ?| infection ? ? ?| ? | ? | ?| likely ? | ? | Consider treatment failure ?+ +------- ---------+ -+ if levels does not decrease | >0.5 ? | Bacterial ? ? ?| Strongly ? ? ?| appropriately ? | ?| infection very | encouraged ? ?| ? | ?| likely ? | ? | ? + +-------- --------+ + -----+ Discontinuation of antibiotics in high-acuity patients with suspected or confirmed sepsis in Adults >= 18 years of age. + +-------- --------+ + -----+|Procalcitonin |Interpretation ?|Antibiotic ? ? |Considerations ? |ng/mL ? | ?|recommendation | ? + +-------- --------+ + -----+| <0.25 ?| Bacterial ? ? ?| Strongly ? ? ?| ? | ?| infection very | discouraged ? | Overruling: ? | ?| unlikely ? ? ? | ? | ? Clinically unstable ? ? ? + +-------- --------+ + ? High risk for adverse ? ? | <0.5 or drop | Bacterial ? ? ?| Discouraged ? | ? outcome ? | >80% from ? ?| infection ? ? ?| ? | ? SEE IMPORTANT NOTE ?| highest PCT ?| unlikely ? ? ? | ? | ? | level ?| ?| ? | ? + +-------- --------+ + -----+| >=0.5 ?| Bacterial ? ? ?| Encouraged ? ?| ? | ?| infection ? ? ?| ? | ? | ?| likely ? | ? | Consider treatment failure ?+ +------- ---------+ -+ if levels does not decrease | >1.0 ? | Bacterial ? ? ?| Strongly ? ? ?| appropriately ? | ?| infection very | encouraged ? ?| ? | ?| likely ? | ? | ? + +-------- --------+ + -----+ Percentage of drop of Procalcitonin calculation for Discontinuation of antibiotics in high-acuity patients with suspected or confirmed sepsis in Adults >= 18 years of age. ? Procalcitonin highest{}-Procalcitonin current{}Delta Procalcitonin = x100% ? Procalcitonin current {} IMPORTANT NOTE: Procalcitonin may be elevated without bacterial infection by physiologic stress related to trauma, sloan, chronic dialysis, metastatic cancer, surgery in the past seven days, malaria, some fungal infections, and some forms of vasculitis. The interpretation algorithm may not apply to patients with immunosuppression (equivalent of >10 mg of prednisone daily), HIV with CD4 cell count < 350 cells/mm3, active malignancy on systemic chemotherapy, solid organ transplant or hematopoietic stem cell transplantation, or hospital acquired pneumonia. Additionally, some clinical trials of procalcitonin have excluded patients with shock requiring vasopressor use, acute respiratory failure requiring mechanical ventilation, or those with known lung abscess/empyema. For further information please refer to:[email or web address] Lab Interpretation Abnormal (test code = 52369-1) [facility] HospitalOSMOLALITY [id number] 15:35:14 Test Item Value Reference Range Interpretation Comments OSMO U (test code = See_Comment [Automa josemanuel message] 4735969774) The system [employer] generated this result transmitted ref erence range: 50-1,100 mOsm/kg. The re ference range was not u sed to interpret this result as normal/abnor mal. Lab Interpretation (test Normal code = 81384-2) [facility] HospitalTROPONIN [id number] 14:04:56 Test Item Value Reference Range Interpretation Comments TROPONIN I (test 0.002 ng/mL See_Comment [Automated code = 5683412523) message] The system which generated this result transmitted reference range : <=0.034. The reference range was not used to interpret this result as normal/abnormal . SNOW (test code = Equal or Less than SNOW) 0.034 ng/ml---Normal ?Note: Cardiac troponin begins to rise 3-4 hours after the onset of ischemia. Repeat in 4-6 hours if the sample was drawn within 3-4 hours of the onset of the symptom and found normal. Between 0.035 and 0.120 ng/mL--- Borderline. Questionable myocardial injury or necrosis ? ?Note: Serial measurement may be necessary to confirm or exclude the diagnosis of myocardial injury or necrosis; Clinical correlation (symptoms, EKGs, imaging studies, and others) required; Repeat in 4-6 hours if clinically indicated. ? Equal or Higher than 0.121 ng/mL---Abnormal. Myocardial Injury or Necrosis Likely ? Biotin has been reported to cause a negative bias, interpret results relative to patient's use of biotin. ? Lab Interpretation Normal (test code = 08199-8) [facility] HospitalCT ABDOMEN PELVIS W [id number] 13:37:17 1. ?Findings concerning for infectious or inflammatory colitis mostpronounced in the cecum, ascending colon and rectosigmoid with probableunderlying portal colopathy. 2. ?Cirrhotic liver morphology with portal hypertension manifested bysplenomegaly, extensive portosystemic collaterals and small volume ascites. 3. ?Nonobstructive punctate right nephrolithiasis. Preliminary Report Dictated by Resident: Lázaro Bain ?MD Marguerite., have reviewed this study and agree with theabove report.CT ABDOMEN PELVIS W CONTRAST HISTORY: Diverticulitis, complication suspected TECHNIQUE: Contrast-enhanced spiral CT of the abdomen and pelvis wasperformed with multiplanar reformatted images provided for review. COMPARISON: 08/11/2019 FINDINGS: LOWER THORAX: The lung bases are clear. LIVER: Nodular liver contour with heterogenous attenuation. GALLBLADDER & BILIARY TREE: The gallbladder is surgically absent. Nobiliary ductal dilatation. PANCREAS: No focal lesion or ductal dilation. SPLEEN: Moderately enlarged measuring 18 cm in craniocaudal dimension. ADRENALS: No adrenal nodules. KIDNEYS: Punctate nonobstructive 2 mm right lower pole stone (4:81).Hypoattenuating subcentimeter right interpolar simple cyst. Nohydronephrosis, focal lesion or obstructing stones. ? PELVIS/BLADDER: The bladder is underdistended limiting evaluation. Priorhysterectomy. GASTROINTESTINAL: No evidence of bowel obstruction. The appendix issurgically absent. Pancolonic mucosal enhancement with cecal, ascendingcolon and rectosigmoid wall thickening with submucosal edema andperienteric stranding. PERITONEUM/RETROPERITONEUM: No free air. Small volume ascites. VASCULAR: ?Portal hypertension manifested by splenic collaterals, asplenorenal shunt, recanalization of the umbilical vein and superior rectalvarices. The main portal vein is dilated measuring 1.9 cm . LYMPHATICS: No enlarged lymph nodes by CT size criteria. BONES AND SOFT TISSUES: No concerning bony lesion identified. Mild leftlateral flank and sacral edema. [facility], Radiant Results Inft User - 09/29/2020 8:38 AM CDTFormatting of this note might be di fferent from the original.CT ABDOMEN PELVIS W CONTRASTHISTORY: Diverticulitis, complication suspected TECHNIQUE: Contrast-enhanced spiral CT of the abdomen and pelvis wasperformed with multiplanar reformatted images provided for review.COMPARISON: 08/11/2019FINDINGS:LOWER THORAX: The lung bases are clear. LIVER: Nodular liver contour with heterogenous attenuation. GALLBLADDER & BILIARY TREE: The gallbladder is surgically absent. Nobiliary ductal dilatation.PANCREAS: No focal lesion or ductal dilation. SPLEEN: Moderately enlarged measuring 18 cm in craniocaudal dimension. ADRENALS: No adrenal nodul es. KIDNEYS: Punctate nonobstructive 2 mm right lower pole stone (4:81).Hypoattenuating subcentimeter right interpolar simple cyst. Nohydronephrosis, focal lesion or obstructing stones. PELVIS/BLADDER: The bladder is underdistended limiting evaluation. Priorhysterectomy. GASTROINTESTINAL: No evidenceof bowel obstruction. The appendix issurgically absent. Pancolonic mucosal enhancement with cecal, ascendingcolon and rectosigmoid wall thickening with submucosal edema andperienteric stranding.PERITONEUM/RETROPERITONEUM: No free air. Small volume ascites. VASCULAR: Portal hypertension manifested by splenic collaterals, asplenorenal shunt, recanalization of the umbilical vein and superior rectalvarices. The main portal vein is dilated measuring 1.9 cm .LYMPHATICS: No enlarged lymph nodes by CT sizecriteria.BONES AND SOFT TISSUES: No concerning bony lesion identified. Mild leftlateral flank and sacral edema.IMPRESSION1. Findings concerning for infectious or inflammatory colitis mostpronounced inthe cecum, ascending colon and rectosigmoid with probableunderlying portal colopathy.2. Cirrhotic liver morphology with portal hypertension manifested bysplenomegaly, extensive portosystemic collaterals and small volume ascites.3. Nonobstructive punctate right nephrolithiasis.Preliminary Report Dictated by Resident: Lázaro Laurent MD., have reviewed this study and agree with theabove report.[facility] WITH [id number] 11:41:25 Test Item Value Reference Range Interpretation Comments WBC (test code = See_Comment L [Automated 6690-2) message] The system which generated this result transmit josemanuel reference range : 4.30 - 11.10 10*3/?L. The reference range was not used to interpret this result as normal/abnormal . RBC (test code = See_Comment L [Automated 789-8) message] The system which generated this result transmit josemanuel reference range : 3.93 - 5.25 10*6/?L. The reference range was not used to interpret this result as normal/abnormal . HGB (test code = 7.4 g/dL 11.6-15.0 L 718-7) HCT (test code = 25.6 % 35.7-45.2 L 4544-3) MCV (test code = 80.0 fL 80.6-95.5 L 787-2) MCH (test code = 23.1 pg 25.9-32.8 L 785-6) MCHC (test code = 28.9 g/dL 31.6-35.1 L 786-4) RDW-SD (test code = 52.4 fL 39.0-49.9 H 02804-2) RDW-CV (test code = 18.2 % 12.0-15.5 H 788-0) PLT (test code = See_Comment LL [Automated 777-3) message] The system which generated this result transmit josemanuel reference range : 166 - 358 10*3/ ?L. The reference range was not u sed to interpret th is result as normal/abnormal . MPV (test code = Not Measure d 28431-9) IPF % (test code = 4.3 % 1.3-7.7 Platelet count 6598359122) measured by fluorescence method. NRBC/100 WBC (test See_Comment [Automat ed code = 0777818084) message] The system which generated this result transmit josemanuel reference range : 0.0 - 10.0 /100 WBCs. The reference range was not used to interpret this result as normal/abnormal . NRBC x10^3 (test code <0.01 See_Comment [Auto mated = 4103944694) message] The system which generated this result transmit josemanuel reference range : 10*3/?L. The reference range was not used to interpret this result as normal/abnormal . GRAN MAT (NEUT) % 74.4 % (test code = 770-8) IMM GRAN % (test code 0.50 % = 9221485861) LYMPH % (test code = 10.3 % 736-9) MONO % (test code = 12.3 % 5905-5) EOS % (test code = 2.0 % 713-8) BASO % (test code = 0.5 % 706-2) GRAN MAT x10^3(ANC) 3.02 10*3/uL 1.88-7.09 (test code = 6864065542) IMM GRAN x10^3 (test <0.03 0.00-0.06 code = 3796680228) LYMPH x10^3 (test 0.42 10*3/uL 1.32-3.29 L code = 731-0) MONO x10^3 (test code 0.50 10*3/uL 0.33-0.92 = 742-7) EOS x10^3 (test code 0.08 10*3/uL 0.03-0.39 = 711-2) BASO x10^3 (test code <0.03 0.01-0.07 = 704-7) PLT ESTIMATE (test Decreased Normal A code = 9317-9) SNOW (test code = SNOW) CBC smear reduced platelet Lab Interpretation Abnormal (test code = 04650-1) [facility] HospitalN-TERMINAL [id number] 11:07:24 Test Item Value Reference Range Interpretation Comments NT-proBNP (test code 79 pg/mL See_Comment [Autom ated = 9636285370) message] The system which generated this result transmitted reference range : <=125. The reference range was not used to interpret this result as normal/abnormal . SNOW (test code = SNOW) Biotin has been reported to cause a negative bias, interpret results relative to patient's use of biotin. Lab Interpretation Normal (test code = 88160-9) [facility] HospitalIRON [id number] 11:04:41 Test Item Value Reference Range Interpretation Comments IRON (test code = 1058661861) 31 ug/dL 50-160 L TIBC (test code = 9565209722) 295 ug/dL 250-410 % FE SAT (test code = 5931959970) 11 % 20-50 L Lab Interpretation (test code = Abnormal 65741-5) [facility] HospitalPROTEIN CREAT RATIO URINE [id number] 10:57:19 Test Item Value Reference Range Interpretation Comments T. PROT U (test code = 2888-6) 9 mg/dL CREAT U (test code = 2363596251) 187.5 mg/dL Protein/Creatinine Ratio Urine 0.0-2.0 (test code = 3100217004) [facility] HospitalSODIUM, URINE [id number] 10:53:21 Test Item Value Reference Range Interpretation Comments NA URINE (test code = 1495352421) 30 mmol/L [facility] HospitalSEDIMENTATION [id number] 10:33:04 Test Item Value Reference Range Interpretation Comments ESR (test code = See_Comment [Automated message] 1155534042) The system ic h generated this result transmitted ref erence range: 0 - 20 m m/HR. The reference r davi was not used to interpret this result as normal/abnor mal. Lab Interpretation (test Normal code = 01722-7) [facility] HospitalPROTHROMBIN TIME / [id number] 09:43:39 Test Item Value Reference Range Interpretation Comments PROTIME PATIENT (test See_Comment H [Auto mated message] code = 5964-2) The system ich generated this result transmitted ref erence range: 12.0 - 1 4.7 Seconds. The reference range was not used to int erpret this result as normal/abnormal . INR (test code = 6301-6) Nor mal INR <1.1; Warfarin Therap eutic range 2.0 to 3. 0 or 2.5 to 3.5, dep ending upon the indica tions. Lab Interpretation (test Abnormal code = 74466-8) [facility] HospitalLactic Acid Whole [id number] 08:42:38 Test Item Value Reference Range Interpretation Comments LACTIC ACID (test code = 1.47 mmol/L 0.50-2.20 1720960833) Lab Interpretation (test code = Normal 40880-1) [facility] HospitalFERRITIN [id number] 07:31:09 Test Item Value Reference Range Interpretation Comments FERRITIN (test code = 12.2 ng/mL 11.0-264.0 6458218334) SNOW (test code = SNOW) Biotin has been reported to cause a negative bias, interpret results relative to patient's use of biotin. Lab Interpretation (test Normal code = 32184-2) [facility] HospitalTHYROID STIMULATING [id number] 07:27:08 Test Item Value Reference Range Interpretation Comments TSH (test code = See_Comment [Automated message] 3777414164) The system [employer] generated this result transmitted ref erence range: 0.45 - 4 .70 mIU/L. The refe rence range was not u sed to interpret this result as normal/abnor mal. Lab Interpretation (test Normal code = 49431-8) [facility] HospitalGLYCOSYLATED HEMOGLOBIN (A1C)2020-09-29 07:05:40 Test Item Value Reference Range Interpretation Comments HGB A1C (test code = 5.0 % 4.0-5.7 4548-4) SNOW (test code = SNOW) Reference RangesNormal: <5.7%Prediabetes: 5.7 - 6.4%Diabetes: > 6.5% Lab Interpretation (test Normal code = 94456-2) [facility] HospitalURIC [id number] 07:05:35 Test Item Value Reference Range Interpretation Comments URIC ACID (test code = 9082483275) 4.2 mg/dL 2.9-6.0 Lab Interpretation (test code = Normal 69341-1) [facility] HospitalCREATINE [id number] 07:05:30 Test Item Value Reference Range Interpretation Comments CK (test code = 2689524891) 192 U/L 33-194 Lab Interpretation (test code = Normal 94681-5) [facility] HospitalN-TERMINAL [id number] 07:05:30 Test Item Value Reference Range Interpretation Comments NT-proBNP (test code 94 pg/mL See_Comment [Autom ated = 1102570555) message] The system which generated this result transmitted reference range : <=125. The reference range was not used to interpret this result as normal/abnormal . SNOW (test code = SNOW) Biotin has been reported to cause a negative bias, interpret results relative to patient's use of biotin. Lab Interpretation Normal (test code = 59425-6) [facility] HospitalMAGNESIUM2021-06-21 07:04:24 Test Item Value Reference Range Interpretation Comments MAGNESIUM (test code = 8666099133) 1.8 mg/dL 1.7-2.4 Lab Interpretation (test code = Normal 45451-9) [facility] HospitalPHOSPHORUS2021-06-21 07:03:39 Test Item Value Reference Range Interpretation Comments PHOSPHORUS (test code = 1439195920) 2.2 mg/dL 2.5-5.0 L Lab Interpretation (test code = Abnormal 59709-2) [facility] HospitalLIPID PANEL (94150)(TOTAL CHOLESTEROL, TRIGLYCERIDES, HDL)2020-09-29 06:56:06 Test Item Value Reference Range Interpretation Comments CHOL (test code = 132 mg/dL 120-200 8571393274) HDL (test code = 41 mg/dL >50 L 8371397822) HDLC RATIO (test code = See_Comment [Au tomated message] 3510539145) The system [employer] generated this result transmit josemanuel reference range : <=4.5. The refe rence range was not u sed to interpret th is result as normal/abnormal . TRIG (test code = 73 mg/dL 30-170 9602807132) LDL CHOL (test code = 76 mg/dL See_Comment [Auto mated message] 88744-8) The system [employer] generated this result transmit josemanuel reference range : <=160. The refe rence range was not u sed to interpret th is result as normal/abnormal . VLDL (test code = 15 mg/dL 5-60 2209886457) Lab Interpretation (test Abnormal code = 82466-8) [facility] HospitalCOVID-19 (ID NOW RAPID TESTING)2020-09-29 06:24:26 Test Item Value Reference Range Interpretation Comments SARS-CoV-2 Rapid ID NOW Not Detected Not Detected (test code = 79933-8) SNOW (test code = SNOW) ID NOW COVID-19 Assay is an isothermal nucleic acid amplification test intended for the qualitative detection of nucleic acid from SARS-CoV-2 viral RNA in nasopharyngeal (SIGNAL OPERATOR) specimens. It is used under Emergency Use Authorization (EUA) by FDA. The limit of detection (LOD) of the assay is 125 Genome Equivalents/mL. A positive result is indicative of the presence of SARS-CoV-2 RNA. ?Clinical correlation with patient history and other diagnostic information is necessary to determine patient infection status. A negative (Not Detected) result does not preclude SARS-CoV-2 infection. In patients with clinical symptoms and other tests that are consistent with SARS-CoV-2 infection, negative results should be treated as presumptive negative and a new specimen should be tested with alternative PCR molecular test. Invalid: Please collect a new specimen for repeat patient testing if clinically indicated. Lab Interpretation Normal (test code = 72594-0) [facility] HospitalURINALYSIS2021-06-21 04:43:31 Test Item Value Reference Range Interpretation Comments APPEARANCE (test code = Clear Clear 5640692513) COLOR (test code = Rosanne Yellow A 9029124751) PH (test code = 4.8-8.0 8647729745) SP GRAVITY (test code = 1.003-1.030 4482914811) GLU U QUAL (test code = Normal Normal 0399293491) BLOOD (test code = Negative Negative 0197325829) KETONES (test code = Negative Negative 8387236025) PROTEIN (test code = 30 mg/dL Negative A 2887-8) UROBILIN (test code = Normal Normal 7105443009) BILIRUBIN (test code = Negative Negative 7550475938) NITRITE (test code = Negative Negative 5826743351) LEUK RANULFO (test code = 25/uL Negative A 8525691006) RBC/HPF (test code = See_Comment [Autom ated message] 4902374163) The system [employer] generated this result transmitted ref erence range: 0 - 3 HP F. The reference range was not used to int erpret this result as normal/abnormal . WBC/HPF (test code = See_Comment [Autom ated message] 5818569873) The system ic h generated this result transmitted ref erence range: 0 - 5 HP F. The reference range was not used to int erpret this result as normal/abnormal . BACTERIA (test code = Few Negative A 6250085770) MUCOUS (test code = Moderate Negative LPF A 5193201129) SQ EPITH (test code = HPF 9539849892) Lab Interpretation (test Abnormal code = 61983-0) [facility] WITH [id number] 04:39:35 Test Item Value Reference Range Interpretation Comments WBC (test code = See_Comment [Automated 6690-2) message] The system which generated this result transmit josemanuel reference range : 4.30 - 11.10 10*3/?L. The reference range was not used to interpret this result as normal/abnormal . RBC (test code = See_Comment L [Automated 789-8) message] The system which generated this result transmit josemanuel reference range : 3.93 - 5.25 10*6/?L. The reference range was not used to interpret this result as normal/abnormal . HGB (test code = 8.1 g/dL 11.6-15.0 L 718-7) HCT (test code = 27.0 % 35.7-45.2 L 4544-3) MCV (test code = 78.9 fL 80.6-95.5 L 787-2) MCH (test code = 23.7 pg 25.9-32.8 L 785-6) MCHC (test code = 30.0 g/dL 31.6-35.1 L 786-4) RDW-SD (test code = 51.3 fL 39.0-49.9 H 16466-8) RDW-CV (test code = 18.1 % 12.0-15.5 H 788-0) PLT (test code = See_Comment L [Automated 777-3) message] The system which generated this result transmit josemanuel reference range : 166 - 358 10*3/ ?L. The reference range was not u sed to interpret th is result as normal/abnormal . MPV (test code = 11.1 fL 9.5-12.9 61116-6) IPF % (test code = 3.7 % 1.3-7.7 Platelet count 2790771878) measured by fluorescence method. NRBC/100 WBC (test See_Comment [Automat ed code = 4834207210) message] The system which generated this result transmit josemanuel reference range : 0.0 - 10.0 /100 WBCs. The reference range was not used to interpret this result as normal/abnormal . NRBC x10^3 (test code <0.01 See_Comment [Auto mated = 4135301988) message] The system which generated this result transmit josemanuel reference range : 10*3/?L. The reference range was not used to interpret this result as normal/abnormal . GRAN MAT (NEUT) % 76.4 % (test code = 770-8) IMM GRAN % (test code 0.80 % = 0028488873) LYMPH % (test code = 9.4 % 736-9) MONO % (test code = 11.3 % 5905-5) EOS % (test code = 1.5 % 713-8) BASO % (test code = 0.6 % 706-2) GRAN MAT x10^3(ANC) 4.07 10*3/uL 1.88-7.09 (test code = 3179638570) IMM GRAN x10^3 (test 0.04 10*3/uL 0.00-0.06 code = 0891643402) LYMPH x10^3 (test 0.50 10*3/uL 1.32-3.29 L code = 731-0) MONO x10^3 (test code 0.60 10*3/uL 0.33-0.92 = 742-7) EOS x10^3 (test code 0.08 10*3/uL 0.03-0.39 = 711-2) BASO x10^3 (test code 0.03 10*3/uL 0.01-0.07 = 704-7) PLT ESTIMATE (test Decreased Normal A code = 9317-9) SNOW (test code = SNOW) Juan slide adgrees to decreased Platelet Lab Interpretation Abnormal (test code = 86413-9) [facility]. METABOLIC PANEL (14884)2020-09-29 04:25:42 Test Item Value Reference Range Interpretation Comments NA (test code = 134 mmol/L 135-145 L 0118428270) K (test code = 3.2 mmol/L 3.5-5.0 L 0683632607) CL (test code = 104 mmol/L 98-108 1860440114) CO2 TOTAL (test code = 24 mmol/L 23-31 3933548476) AGAP (test code = 2-16 1457998309) BUN (test code = 8 mg/dL 7-23 9144885829) GLUCOSE (test code = 105 mg/dL 70-110 9798221829) CREATININE (test code = 0.51 mg/dL 0.50-1.04 0853611527) TOTAL BILI (test code = 2.5 mg/dL 0.1-1.1 H 4207939706) CALCIUM (test code = 8.2 mg/dL 8.6-10.6 L 7945761142) T PROTEIN (test code = 6.3 g/dL 6.3-8.2 6909485986) ALBUMIN (test code = 3.1 g/dL 3.5-5.0 L [id number]) ALK PHOS (test code = 136 U/L 34-122 H 9711391068) ALTv (test code = 24 U/L 5-35 1742-6) AST(SGOT) (test code = 30 U/L 13-40 3111393509) eGFR (test code = mL/min/1.73m2 5125998878) SNOW (test code = SNOW) Association of Glomerular Filtration Rate (GFR) and Staging of Kidney Disease* + --+ --+ ------+| GFR (mL/min/1.73 m2) ?| With Kidney Damage ?| ?Without Kidney Damage+ --------+ --------+ +| ?>90 ?| ?Stage one ?| ? Normal ?+ ---+ ---+ -------+| ?60-89 ?| ?Stage two ?| ? Decreased GFR ? + --+ --+ ------+| ?30-59 ?| ?Stage three ?| ? Stage three ? + --+ --+ ------+| ?15-29 ?| ?Stage four ? | ? Stage four ?+ ---+ ---+ -------+| ?<15 (or dialysis) ? ?| ?Stage five ? | ? Stage five ?+ ---+ ---+ -------+ *Each stage assumes the associated GFR level has been in effect for at least three months. ?Stages 1 to 5, with or without kidney disease, indicate chronic kidney disease. Notes: Determination of stages one and two (with eGFR >59mL/min/1.73 m2) requires estimation of kidney damage for at least three months as defined by structural or functional abnormalities of the kidney, manifested by either:Pathological abnormalities or Markers of kidney damage (including abnormalities in the composition of the blood or urine or abnormalities in imaging tests). 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 employed in a healthcare setting (test code = 22687-5) Whether the patient has symptoms related to condition of interest (test code = 61159-2) Patient was hospitalized because of this condition (test code = 04625-9) Whether the patient was admitted to intensive care unit (ICU) for condition of interest (test code = 45697-0) Whether patient resides in a congregate care setting (test code = 88250-5) SARS-CoV-2 (COVID-19) RNA [Presence] in Respiratory specimen by HELENA with probe [id number] 02:47:43 Test Item Value Reference Range Interpretation Comments SARS-CoV-2 (COVID-19) RNA Not detected Not-Detected [Presence] in Respiratory specimen by HELENA with probe detection (test code = 39725-2) SARS-CoV-2 (COVID-19) RNA [Presence] in Respiratory specimen by HELENA with probe [id number] 16:32:37 Test Item Value Reference Range Interpretation Comments SARS-CoV-2 (COVID-19) RNA Not detected Not-Detected [Presence] in Respiratory specimen by HELENA with probe detection (test code = 91370-6) SARS-CoV-2 (COVID-19) RNA [Presence] in Respiratory specimen by HELENA with probe [id number] 05:29:57 Test Item Value Reference Range Interpretation Comments SARS-CoV-2 (COVID-19) RNA Not detected Not-Detected [Presence] in Respiratory specimen by HELENA with probe detection (test code = 75245-1) CT ABDOMEN PELVIS W [id number] 19:27:49 1. ?No evidence of small bowel obstruction. 2. 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 3. Nonspecific mesenteric inflammation in the pericecal region with changesof prior appendectomy. There is no associated wall thickening in theadjacent bowel. This could be infectious and appears similar on the priorstudy. Preliminary Report Dictated by Resident: Frandy Denise ?MD Michael., have reviewed this study and agree with the abovereport.EXAM: CT ABDOMEN AND PELVIS WITH CONTRAST HISTORY: Suspected small bowel obstruction. COMPARISON: CT of the abdomen dated 10/14/2017. TECHNIQUE AND FINDINGS: Contiguous axial imaging from the level of the lungbases through the pubic symphysis was performed after the uncomplicatedadministration of 120 cc of intravenous Omnipaque contrast. Coronal andsagittal reconstructions were obtained. ?Auto mA and/or iterativereconstruction were used to reduce radiation dose. FINDINGS: LOWER THORAX: The lungs bases are clear. ?No cardiomegaly. LIVER: No focal hepatic lesions. ? Nodular liver contour. GALLBLADDER AND BILIARY TREE: Changes of cholecystectomy. No biliarydilatation. PANCREAS: No ductal dilation or masses. SPLEEN: The spleen is enlarged at 20 cm. ADRENAL GLANDS: No adrenal nodules. KIDNEYS: No hydronephrosis, stones, or masses. PELVIS/BLADDER: The urinary bladder is unremarkable. A 2.7 cm right ovarian cystic lesionis seen (2: 130). A 3.4 cm left ovarian simple cyst is seen (2:123) GI TRACT:No dilation or wall thickening. Interval improvement in the previously noted thickening of the rectal walland surrounding fat stranding. Oral contrast is seen in the large bowel loops. Changes of appendectomy with nonspecific inflammation in the pericecalregion. This was similarly noted on the prior study with no associatedcolonic wall thickening. VESSELS: The main portal vein is dilated at 17 mm. LYMPH NODES: No lymphadenopathy. PERITONEUM AND RETROPERITONEUM: Trace ascites is seen. BONES AND SOFT TISSUES: No suspicious lytic or sclerotic bony lesions. [facility], Radiant Results Inft User - 08/11/2019 2 :28 PM CDTEXAM: CT ABDOMEN AND PELVIS WITH CONTRASTHISTORY: Suspected small bowel obstruction.COMPARISON: CT of the abdomen dated 10/14/2017.TECHNIQUE AND FINDINGS: Contiguous axial imaging from the level of the lungbases through the pubic symphysis was performed after the uncomplicatedadministration of120 cc of intravenous Omnipaque contrast. Coronal andsagittal reconstructions were obtained. Auto mA and/or iterativereconstruction were used to reduce radiation dose.FINDINGS:LOWER THORAX: The lungs bases are clear. No cardiomegaly.LIVER: No focal hepatic lesions. Nodular liver contour.GALLBLADDER AND BILIARY TREE: Changes of cholecystectomy. No biliarydilatation.PANCREAS: No ductal dilation or masses.SPLEEN: The spleen is enlarged at 20 cm.ADRENAL GLANDS: No adrenal nodules.KIDNEYS: No hydronephrosis, stones, or masses.PELVIS/BLADDER: The urinary bladder is unremarkable. A 2.7 cm right ovarian cystic lesionis seen (2: 130). A 3.4 cm left ovarian simple cyst is seen (2:123)GI TRACT:No dilation or wall thickening.Interval improvement in the previously noted thickening of the rectal walland surrounding fat stranding.Oral contrast is seen in the large bowel loops.Changes of appendectomy with nonspecific inflammation in the pericecalregion. This was similarly noted on the prior study with no as sociatedcolonic wall thickening.VESSELS: The main portal vein is dilated at 17 mm.LYMPH NODES: No lymphadenopathy.PERITONEUM AND RETROPERITONEUM: Trace ascites is seen.BONES AND SOFT TISSUES: No suspicious lytic or sclerotic bony lesions.IMPRESSION1. No evidence of small bowel obstruction.2. 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 Nonspecific mesenteric inflammation in the pericecal region with changesof prior appendectomy. There is no associated wall thickening in theadjacent bowel. This could be infectious and appears similar on the priorstudy.PreliminaryReport Dictated by Resident: Vilma rOtez, Frandy Rodriguez MD., have reviewed this study and agree with the abovereport.[facility] WITH [id number] 11:56:00 Test Item Value Reference Range Interpretation Comments WBC (test code = See_Comment L [Automated 6690-2) message] The sy stem which generated this result transmitted reference range : 4.30 - 11.10 10*3/?L. The reference range was not used to interpret this result as normal/abnormal . RBC (test code = See_Comment L [Automated 789-8) message] The sy stem which generated this result transmitted reference range : 3.93 - 5.25 10*6/?L. The reference range was not used to interpret this result as normal/abnormal . HGB (test code = 11.2 g/dL 11.6-15 L 718-7) HCT (test code = 32.8 % 35.7-45.2 L 4544-3) MCV (test code = 95.6 fL 80.6-95.5 H 787-2) MCH (test code = 32.7 pg 25.9-32.8 785-6) MCHC (test code = 34.1 g/dL 31.6-35.1 786-4) RDW-SD (test code = 58.0 fL 39-49.9 H 78018-7) RDW-CV (test code = 16.6 % 12-15.5 H 788-0) PLT (test code = See_Comment LL [Automated 777-3) message] The sy stem which generated this result transmitted reference range : 166 - 358 10*3/ ?L. The reference r davi was not used to interpret this result as normal/abnormal . MPV (test code = 11.0 fL 9.5-12.9 82477-1) IPF % (test code = 5.5 % 1.3-7.7 Platelet count 5937273906) measured by fluorescence method. NRBC/100 WBC (test See_Comment [Automat ed code = 5926527697) message] The system which generated this result transmitted reference range : 0.0 - 10.0 /100 WBCs. The refer ence range was not u sed to interpret th is result as normal/abnormal . NRBC x10^3 (test code <0.01 See_Comment [Auto mated = 0427778486) message] The s ystem which generated this result transmitted reference range : 10*3/?L. The reference range was not used to interpret this result as normal/abnormal . GRAN MAT (NEUT) % 57.6 % (test code = 770-8) IMM GRAN % (test code 0.00 % = 4945839907) LYMPH % (test code = 27.1 % 736-9) MONO % (test code = 11.8 % 5905-5) EOS % (test code = 3.1 % 713-8) BASO % (test code = 0.4 % 706-2) GRAN MAT x10^3(ANC) 1.47 10*3/uL 1.88-7.09 L (test code = 5178667920) IMM GRAN x10^3 (test <0.03 0-0.06 code = 8780117226) LYMPH x10^3 (test code 0.69 10*3/uL 1.32-3.29 L = 731-0) MONO x10^3 (test code 0.30 10*3/uL 0.33-0.92 L = 742-7) EOS x10^3 (test code = 0.08 10*3/uL 0.03-0.39 711-2) BASO x10^3 (test code <0.03 0.01-0.07 = 704-7) Lab Interpretation Abnormal (test code = 65191-6) [facility]. METABOLIC PANEL (25761)2019-08-11 10:42:00 Test Item Value Reference Range Interpretation Comments NA (test code = 138 mmol/L 135-145 0838373736) K (test code = 3.8 mmol/L 3.5-5 8026320427) CL (test code = 108 mmol/L 98-108 6678250574) CO2 TOTAL (test code = 24 mmol/L 23-31 2536120253) AGAP (test code = 2-16 2512965606) BUN (test code = 10 mg/dL 7-23 0261381899) GLUCOSE (test code = 108 mg/dL 70-110 4229071304) CREATININE (test code = 0.43 mg/dL 0.5-1.04 L 6600354467) TOTAL BILI (test code = 2.5 mg/dL 0.1-1.1 H 8698283547) CALCIUM (test code = 8.4 mg/dL 8.6-10.6 L 5435064876) T PROTEIN (test code = 6.1 g/dL 6.3-8.2 L 9996233255) ALBUMIN (test code = 3.1 g/dL 3.5-5 L 8951525011) ALK PHOS (test code = 102 U/L 34-122 8109319039) ALTv (test code = 52 U/L 5-35 H 1742-6) AST(SGOT) (test code = 63 U/L 13-40 H 4860059145) eGFR Calculation mL/min/1.73m2 (Non-) (test code = 5836512670) eGFR Calculation mL/min/1.73m2 () (test code = 1115562163) SNOW (test code = SNOW) Association of Glomerular Filtration Rate (GFR) and Staging of Kidney Disease* + --+ --+ ------+| GFR (mL/min/1.73 m2) ?| With Kidney Damage ?| ?Without Kidney Damage+ --------+ --------+ +| ?>90 ?| ?Stage one ?| ? Normal ?+ ---+ ---+ -------+| ?60-89 ?| ?Stage two ?| ? Decreased GFR ? + --+ --+ ------+| ?30-59 ?| ?Stage three ?| ? Stage three ? + --+ --+ ------+| ?15-29 ?| ?Stage four ? | ? Stage four ?+ ---+ ---+ -------+| ?<15 (or dialysis) ? ?| ?Stage five ? | ? Stage five ?+ ---+ ---+ -------+ *Each stage assumes the associated GFR level has been in effect for at least three months. ?Stages 1 to 5, with or without kidney disease, indicate chronic kidney disease. Notes: Determination of stages one and two (with eGFR >59mL/min/1.73 m2) requires estimation of kidney damage for at least three months as defined by structural or functional abnormalities of the kidney, manifested by either:Pathological abnormalities or Markers of kidney damage (including abnormalities in the composition of the blood or urine or abnormalities in imaging tests). Lab Interpretation Abnormal (test code = 24676-6) [facility] SMALL BOWEL [id number] 02:08:11 1. ?No bowel obstruction. No fluoroscopic images or fluoroscopic time. RL 6200 HISTORY: ?Abdominal pain COMPARISON: ?None FINDINGS: There is a nonobstructive bowel gas pattern. Contrast is seen throughoutthe entire small bowel and colon. Nodilated loops of bowel demonstrated. [facility], Radiant Results Inft User - 08/10/2019 9:09 PM CDTHISTORY: Abdominal painCOMPARISON: NoneFINDINGS:There is a nonobstructive bowel gas pattern. Contrast is seen throughoutthe entire small bowel and colon. No dilated loops of bowel demonstrated.IMPRESSION1.No bowel obstruction.No fluoroscopic images or fluoroscopic time.RL 6200 [facility]burgSEDIMENTATION [id number] 16:19:00 Test Item Value Reference Range Interpretation Comments ESR (test code = See_Comment [Automated message] 5441724663) The system [employer] generated this result transmitted ref erence range: 0 - 20 m m/HR. The reference r davi was not used to interpret this result as normal/abnor mal. Lab Interpretation (test Normal code = 36898-7) [facility] HospitalAbdominal 1 View - To confirm nasogastric tube placement.2019-08-10 15:24:13 1. ?Enteric tube terminates in the gastric body. 2. ?Gas-distended, nondilated large and small bowel in the visualized upperabdomen. Preliminary Report Dictated by Resident: Yazmin Jiang MD., have reviewed this study and agree with the abovereport.EXAM: XR ABDOMEN 1 VW HISTORY: 59 years-old Female. Examination to evaluate for small bowelobstruction. COMPARISON: CT ABDOMEN PELVIS W CONTRAST, 10/14/2017. FINDINGS: Limited views of the upper abdomen demonstrate an enteric tube traversingthe diaphragm terminating in the gastric body. Gaseous distended but nondilated loops of large and small bowel arepartially visualized. Cholecystectomy clips are noted. Branching hypoattenuating structure in thedistribution of the right kidney representing contrast from recent CTwithin the renal collecting system. No acute bony abnormalities are noted. [facility], Radiant Results Inft User - 08/10/2019 10:25 AM CDTEXAM: XR ABDOMEN 1 VWHISTORY: 59 years-old Female. Examination to evaluate for small bowelobstruction.COMPARISON: CT ABDOMEN PELVIS W CONTRAST, 10/14/2017.FINDINGS:Limited views of the upper abdomen demonstrate an enteric tube traversingthe diaphragm terminating in the gastric body.Gaseous distended but nondilated loops of large and small bowel arepartially visualized.Cholecystectomy clips are noted. Branching hypoattenuating structure in thedistribution of the right kidney representing contrast from recent CTwithin the renal collecting system.No acute bony abnormalities are noted.IMPR ESSION1. Enteric tube terminates in the gastric body.2. Gas-distended, nondilated large and small bowel in the visualized upperabdomen.Preliminary Report Dictated by Resident: Keo Dorantes, Yazmin Vlilalobos MD., have reviewed this study and agree with the abovereport.[facility] WITH [id number] 13:48:00 Test Item Value Reference Range Interpretation Comments WBC (test code = See_Comment L [Automated 9490-2) message] The system which generated this result transmit josemanuel reference range : 4.30 - 11.10 10*3/?L. The reference range was not used to interpret this result as normal/abnormal . RBC (test code = See_Comment L [Automated 789-8) message] The system which generated this result transmit josemanuel reference range : 3.93 - 5.25 10*6/?L. The reference range was not used to interpret this result as normal/abnormal . HGB (test code = 11.5 g/dL 11.6-15 L 718-7) HCT (test code = 34.3 % 35.7-45.2 L 4544-3) MCV (test code = 95.0 fL 80.6-95.5 787-2) MCH (test code = 31.9 pg 25.9-32.8 785-6) MCHC (test code = 33.5 g/dL 31.6-35.1 786-4) RDW-SD (test code = 58.4 fL 39-49.9 H 05305-8) RDW-CV (test code = 16.7 % 12-15.5 H 788-0) PLT (test code = See_Comment LL [Automated 777-3) message] The system which generated this result transmit josemanuel reference range : 166 - 358 10*3/ ?L. The reference range was not u sed to interpret th is result as normal/abnormal . MPV (test code = 10.5 fL 9.5-12.9 51209-3) IPF % (test code = 3.0 % 1.3-7.7 Platelet count 8699328859) measured by fluorescence method. NRBC/100 WBC (test See_Comment [Automat ed code = 7196622620) message] The system which generated this result transmit josemanuel reference range : 0.0 - 10.0 /100 WBCs. The reference range was not used to interpret this result as normal/abnormal . NRBC x10^3 (test code <0.01 See_Comment [Auto mated = 3294393584) message] The system which generated this result transmit josemanuel reference range : 10*3/?L. The reference range was not used to interpret this result as normal/abnormal . GRAN MAT (NEUT) % 57.1 % (test code = 770-8) IMM GRAN % (test code 0.40 % = 2076079559) LYMPH % (test code = 28.1 % 736-9) MONO % (test code = 10.4 % 5905-5) EOS % (test code = 3.6 % 713-8) BASO % (test code = 0.4 % 706-2) GRAN MAT x10^3(ANC) 1.42 10*3/uL 1.88-7.09 L (test code = 3189576833) IMM GRAN x10^3 (test <0.03 0-0.06 code = 0113371872) LYMPH x10^3 (test 0.70 10*3/uL 1.32-3.29 L code = 731-0) MONO x10^3 (test code 0.26 10*3/uL 0.33-0.92 L = 742-7) EOS x10^3 (test code 0.09 10*3/uL 0.03-0.39 = 711-2) BASO x10^3 (test code <0.03 0.01-0.07 = 704-7) PLT ESTIMATE (test Critically Normal AA code = 9317-9) Decreased Lab Interpretation Abnormal (test code = 89576-3) [facility] HospitalGLYCOSYLATED HEMOGLOBIN (A1C)2019-08-10 13:13:00 Test Item Value Reference Interpretation Comments Range HGB A1C (test code = See_Comment [Autom ated 4548-4) message] The system which generated this result transmitted reference range : 4.0 - 6.0 % NGSP. The reference range was not used to interpret this result as normal/abnormal . SNOW (test code = %A1C (NGSP) SNOW) Interpretation (ADA)4.8-5.6 ? ? Normal or (Non-Diabetic Range)5.7-6.4 ? ? Increased Risk (Pre-Diabetic)>6.5 ?Diabetes Indicated Lab Interpretation Normal (test code = 52605-2) [facility] HospitalTHYROID STIMULATING [id number] 13:05:00 Test Item Value Reference Range Interpretation Comments TSH (test code = See_Comment [Automated message] 9160024967) The system [employer] generated this result transmitted ref erence range: 0.45 - 4 .70 mIU/L. The refe rence range was not u sed to interpret this result as normal/abnor mal. Lab Interpretation (test Normal code = 79977-5) [facility] HospitalPREGNANCY TEST, [id number] 13:04:00 Test Item Value Reference Range Interpretation Comments PREG SERUM (test code Negative = 1160143187) SNOW (test code = SNOW) Less than 10 IU/L. ?If low titer or ectopic is suspected, resubmit specimen in 48-72 hours. [facility] HospitalLIPID PANEL (46839)(TOTAL CHOLESTEROL, TRIGLYCERIDES, HDL)2019-08-10 12:36:00 Test Item Value Reference Range Interpretation Comments CHOL (test code = 158 mg/dL 120-200 2905864806) HDL (test code = 47 mg/dL >50 L 7319611127) HDLC RATIO (test code = See_Comment [Au tomated message] 6999281110) The system [employer] generated this result transmit josemanuel reference range : <=4.5. The refe rence range was not u sed to interpret th is result as normal/abnormal . TRIG (test code = 51 mg/dL 30-170 2047882490) LDL CHOL (test code = 101 mg/dL See_Comment [Auto mated message] 64163-2) The system [employer] generated this result transmit josemnauel reference range : <=160. The refe rence range was not u sed to interpret th is result as normal/abnormal . VLDL (test code = 10 mg/dL 5-60 3191256241) Lab Interpretation (test Abnormal code = 47764-6) [facility]. METABOLIC PANEL (62086)2019-08-10 12:35:00 Test Item Value Reference Range Interpretation Comments NA (test code = 139 mmol/L 135-145 9074975199) K (test code = 3.9 mmol/L 3.5-5 5782339402) CL (test code = 109 mmol/L 98-108 H 2747243476) CO2 TOTAL (test code = 25 mmol/L 23-31 9527484114) AGAP (test code = 2-16 8520721839) BUN (test code = 15 mg/dL 7-23 6633957478) GLUCOSE (test code = 218 mg/dL 70-110 H 4739486248) CREATININE (test code = 0.40 mg/dL 0.5-1.04 L 6916637119) TOTAL BILI (test code = 2.0 mg/dL 0.1-1.1 H 1929298560) CALCIUM (test code = 8.5 mg/dL 8.6-10.6 L 0405716634) T PROTEIN (test code = 6.2 g/dL 6.3-8.2 L 1675726158) ALBUMIN (test code = 3.1 g/dL 3.5-5 L 9874102445) ALK PHOS (test code = 99 U/L 34-122 2172664969) ALTv (test code = 42 U/L 5-35 H 1742-6) AST(SGOT) (test code = 49 U/L 13-40 H 4882674835) eGFR Calculation mL/min/1.73m2 (Non-) (test code = 2236165516) eGFR Calculation mL/min/1.73m2 () (test code = 9284548100) SNOW (test code = SNOW) Association of Glomerular Filtration Rate (GFR) and Staging of Kidney Disease* + --+ --+ ------+| GFR (mL/min/1.73 m2) ?| With Kidney Damage ?| ?Without Kidney Damage+ --------+ --------+ +| ?>90 ?| ?Stage one ?| ? Normal ?+ ---+ ---+ -------+| ?60-89 ?| ?Stage two ?| ? Decreased GFR ? + --+ --+ ------+| ?30-59 ?| ?Stage three ?| ? Stage three ? + --+ --+ ------+| ?15-29 ?| ?Stage four ? | ? Stage four ?+ ---+ ---+ -------+| ?<15 (or dialysis) ? ?| ?Stage five ? | ? Stage five ?+ ---+ ---+ -------+ *Each stage assumes the associated GFR level has been in effect for at least three months. ?Stages 1 to 5, with or without kidney disease, indicate chronic kidney disease. Notes: Determination of stages one and two (with eGFR >59mL/min/1.73 m2) requires estimation of kidney damage for at least three months as defined by structural or functional abnormalities of the kidney, manifested by either:Pathological abnormalities or Markers of kidney damage (including abnormalities in the composition of the blood or urine or abnormalities in imaging tests). Lab Interpretation Abnormal (test code = 04633-1) [facility] HospitalMAGNESIUM2020-05-01 12:35:00 Test Item Value Reference Range Interpretation Comments MAGNESIUM (test code = 5869269003) 1.6 mg/dL 1.7-2.4 L Lab Interpretation (test code = Abnormal 47665-4) [facility] HospitalPHOSPHORUS2020-05-01 12:35:00 Test Item Value Reference Range Interpretation Comments PHOSPHORUS (test code = 2839668380) 3.6 mg/dL 2.5-5 Lab Interpretation (test code = Normal 38756-5) [facility] HospitalCREATINE [id number] 12:35:00 Test Item Value Reference Range Interpretation Comments CK (test code = 1482028224) 123 U/L 33-194 Lab Interpretation (test code = Normal 02878-7) [facility] HospitalLIPASE2020-05-01 12:35:00 Test Item Value Reference Range Interpretation Comments LIPASE (test code = 5723530393) 141 U/L 0-220 Lab Interpretation (test code = Normal 95919-6) [facility] HospitalAMYLASE2020-05-01 12:34:00 Test Item Value Reference Range Interpretation Comments LIN (test code = 7738331210) 73 U/L 35-110 Lab Interpretation (test code = Normal 42094-1) [facility] HospitalPROTHROMBIN TIME / [id number] 12:07:00 Test Item Value Reference Range Interpretation Comments PROTIME PATIENT (test See_Comment H [Auto mated message] code = 5964-2) The system [employer] generated this result transmitted ref erence range: 12.0 - 1 4.7 Seconds. The reference range was not used to int erpret this result as normal/abnormal . INR (test code = 6301-6) Nor mal INR <1.1; Warfarin Therap eutic range 2.0 to 3. 0 or 2.5 to 3.5, dep ending upon the indica tions. Lab Interpretation (test Abnormal code = 82336-8) [facility] HospitalCORONAVIRUS COVID-19 [id number] 10:18:00 Test Item Value Reference Range Interpretation Comments SARS-CoV-2 (test code = Not Detected Not Detected 33967-2) SNOW (test code = SNOW) ID NOW COVID-19 Assay is an isothermal nucleic acid amplification test intended for the qualitative detection of nucleic acid from SARS-CoV-2 viral RNA in nasopharyngeal (SIGNAL OPERATOR) specimens. It is used under Emergency Use Authorization (EUA) by FDA. The limit of detection (LOD) of the assay is 125 Genome Equivalents/mL. A positive result is indicative of the presence of SARS-CoV-2 RNA. ?Clinical correlation with patient history and other diagnostic information is necessary to determine patient infection status. A negative (Not Detected) result does not preclude SARS-CoV-2 infection. Clinical correlation with patient history and other diagnostic information should be used in patient management decisions. Invalid: Please collect a new specimen for repeat patient testing if clinically indicated. Lab Interpretation Normal (test code = 44639-1) [facility], NON [id number] 07:50:00Reason for exam:->SOBShould this be performed at the bedside?->Yes FINAL REPORT CLINICAL HISTORY: SOB TECHNIQUE: 1 view of the chest. COMPARISON: None IMPRESSION: There is pulmonary vascular congestion with prominent lung markings bilaterally. Subpulmonic pleural effusions cannot be excluded. The cardiomediastinal silhouette is magnified by technique. Signed: Franky Louis MDReport Verified Date/Time: 10/03/2018 07:50:47 Reading Location: [facility] Radiology Reading Room [id number] 07:37:00 Test Item Value Reference Range Interpretation Comments MAGNESIUM (BEAKER) (test code = 1.6 mg/dL 1.6-2.6 627) BASIC METABOLIC [id number] 07:37:00 Test Item Value Reference Range Interpretation [...] 697) EGFR (BEAKER) (test 94 mL/min/1.73 ESTIMA JOSEMANUEL GFR IS code = 1092) sq m NOT ACCURATE CREATININE CLEARANCE IN PREDICTING GLOMERULAR FILTRATION RATE . ESTIMATED GFR I S NOT APPLICABLE FOR DIALYSIS PATIEN TS. Specimen slightly ictericHEPATIC FUNCTION [id number] 07:37:00 Test Item Value Reference Range Interpretation [...] 35 U/L 6-55 347) Specimen slightly ictericPROTHROMBIN [id number] 06:25:00 Test Item Value Reference Range Interpretation [...] mechanical heart valves.CBC W/PLT COUNT & AUTO [id number] 06:16:00 Test Item Value Reference Range Interpretation [...] = 3438) Received comment: User comments: Slide comments:[id number] 05:58:00 Test Item Value Reference Range Interpretation Comments MAGNESIUM (BEAKER) (test code = 1.6 mg/dL 1.6-2.6 627) BASIC METABOLIC [id number] 05:58:00 Test Item Value Reference Range Interpretation [...] 697) EGFR (BEAKER) (test 96 mL/min/1.73 ESTIMA JOSEMANUEL GFR IS code = 1092) sq m NOT ACCURATE CREATININE CLEARANCE IN PREDICTING GLOMERULAR FILTRATION RATE . ESTIMATED GFR I S NOT APPLICABLE FOR DIALYSIS PATIEN TS. Specimen slightly ictericHEPATIC FUNCTION [id number] 05:58:00 Test Item Value Reference Range Interpretation [...] 39 U/L 6-55 347) Specimen slightly ictericPROTHROMBIN [id number] 05:26:00 Test Item Value Reference Range Interpretation [...] mechanical heart valves.CBC W/PLT COUNT & AUTO [id number] 05:20:00 Test Item Value Reference Range Interpretation [...] WBC 0-0 (test code = 413) VITAMIN [id number] 06:57:00 Test Item Value Reference Range Interpretation Comments VITAMIN B12 (BEAKER) (test code = 178 pg/mL 213-816 L 774) [id number] 06:57:00 Test Item Value Reference Range Interpretation Comments FERRITIN (BEAKER) (test code = 361) 21 ng/mL 5-275 FOLATE, [id number] 06:57:00 Test Item Value Reference Range Interpretation [...] 28 % 20-55 (test code = 2590) [id number] 05:59:00 Test Item Value Reference Range Interpretation Comments MAGNESIUM (BEAKER) (test code = 1.7 mg/dL 1.6-2.6 627) BASIC METABOLIC [id number] 05:59:00 Test Item Value Reference Range Interpretation [...] 697) EGFR (BEAKER) (test 99 mL/min/1.73 ESTIMA JOSEMANUEL GFR IS code = 1092) sq m NOT ACCURATE CREATININE CLEARANCE IN PREDICTING GLOMERULAR FILTRATION RATE . ESTIMATED GFR I S NOT APPLICABLE FOR DIALYSIS PATIEN TS. Specimen slightly ictericLIPID [id number] 05:59:00 Test Item Value Reference Range Interpretation [...] Very High >=190 Specimen slightly ictericHEPATIC FUNCTION [id number] 05:59:00 Test Item Value Reference Range Interpretation [...] = 41 U/L 6-55 347) Specimen slightly [id number] 05:59:00 Test Item Value Reference Range Interpretation Comments LIPASE (BEAKER) (test code = 749) 35 U/L 8-78 Specimen slightly ictericPROTHROMBIN [id number] 05:58:00 Test Item Value Reference Range Interpretation [...] mechanical heart valves.CBC W/PLT COUNT & AUTO [id number] 05:37:00 Test Item Value Reference Range Interpretation [...] PERCENT (BEAKER) (test code = 2801) POCT-HEMOGLOBIN [id number] 06:12:00 Test Item Value Reference Range Interpretation Comments POC-HEMOGLOBIN METER 8.6 g/dL 12.0-15.[address] [facility] 67[address] (BEAKER) (test code = [place] [address] 1539)"
[2021-03-30] MEDS ORDERED: FENTANYL CITR 100 MCG/2 ML ONE ×2 (16:49→19:25)
[2021-03-30] MEDS ORDERED: ONDANSETRON 4 MG/2 ML VIAL ONE ×2 (16:50→19:25)
[2021-03-30] MEDS ORDERED: NA CHLORIDE 0.9% 500 ML ONE (16:50)
[2021-03-30 17:21] LABS: Absolute Lymphocytes (CBC) 0.5 K/uL (0.7-4.9); Basophils % 0.6 % (0-1.3); Hematocrit 35.6 % (36.0-45.0); Lymphocytes % 24.3 % (15.3-44.8); MPV 8.7 fL (7.6-11.3); RBC Red Blood Cell Count 3.67 M/uL (3.86-4.86)
[2021-03-30 17:35] LABS: ALT/SGPT 47 U/L (12-78); AST/SGOT 48 U/L (15-37); Albumin 2.8 g/dL (3.4-5.0); Alkaline Phosphatase 143 U/L (45-117); BUN Blood Urea Nitrogen 7 mg/dL (7-18); Bicarbonate 26 mmol/L (21-32); Bilirubin Direct 0.8 mg/dL (0-0.2); Bilirubin Total 2.4 mg/dL (0.2-1.0); Glucose Level 101 mg/dL (74-106); Lipase 146 U/L (73-393); Potassium 3.9 mmol/L (3.5-5.1); Protein, Total 6.4 g/dL (6.4-8.2); Sodium Level 141 mmol/L (136-145)
[2021-03-30 18:20] LABS: Urine Blood NEGATIVE (Negative); Urine Glucose NEGATIVE (Negative); Urine Protein NEGATIVE (Negative); Urine Specific Gravity >1.030 (1.005-1.030); Urine pH 6.5 (5.0-7.0)
--- NOTE | 2021-03-30 18:22 | RAD REPORT ---
EXAM DESCRIPTION: CT - Abdomen Pelvis Wo Contrast - 03/30/2021 6:07 pm CLINICAL HISTORY: ABD PAIN COMPARISON: Abdomen Pelvis W Contrast dated 01/26/2021; Abdomen Pelvis W Contrast dated TECHNIQUE: Axial [address] imaging of the abdomen and pelvis was performed without IV contrast. No IV contrast was given because of allergy, abnormal renal function, patient refusal or physician re quest. No oral contrast administered. All CT scans are performed using dose optimization technique as appropriate and may include automated exposure control or mA/KV adjustment according to patient size. FINDINGS: No suspicious findings in the lung bases. Cirrhotic liver changes are present with nodular capsule contour. Upper abdominal varices are present matching prior imaging. Splenomegaly has not changed. A 2.9 centimeter splenic artery aneurysm all s elf unchanged. Cholecystectomy clips are present with no biliary tree dilatation. No focal liver lesi on is identifiable. No pancreatic focal mass lesion and no measurable peripancreatic inflammatory stranding. No hydronephrosis or suspicious renal mass. No significant adrenal finding. Isodense renal masses an d pyelonephritis cannot be excluded in the absence of IV contrast. Contracted urinary bladder shows n o suspicious finding. Uterus is absent. Ovaries are absent or atrophic. No gastric dilatation or gastric wall thickening. No acute appendicitis findings. Areas of fat strand ing are present in the perirectal region and near the cecum. Similar pattern previously noted. No fr ee air, free fluid or pneumatosis. No hernia, mass or bulky lymphadenopathy. No suspicious bony findings. IMPRESSION: No CT findings of acute pancreatitis. Gallbladder is absent with no abnormal biliary rosie e dilatation. Cirrhotic liver change with splenomegaly. No ascites or acute finding seen. Minimal stranding in the peritoneal fat matches prior imaging. Full assessment is limited is the absence of IV contrast.
--- NOTE | 2021-03-30 19:08 | EDPHYS ---
Physician Documentation [facility] Name: Zenaida Goss Age: 60 yrs Sex: Female : 1960 Arrival Date: 03/30/2021 Time: 15:42 Bed 5 Private MD: ED Physician Homero Terrell HPI: 03/30 16:16 This 60 yrs old Female presents to ER via Ambulatory with complaints of pm1 Abdominal Pain, Back Pain. 16:16 The patient presents with abdominal pain in the left upper quadrant. Onset: The pm1 symptoms/episode began/occurred 3 day(s) ago. The symptoms radiate to back. Associated signs and symptoms: Pertinent positives: nausea, Pertinent negatives: diarrhea, dysuria, fever, vomiting. Modifying factors: The symptoms are alleviated by nothing, the symptoms are aggravated by nothing. Severity of pain: in the emergency department the pain is actually worse. The patient has experienced similar episodes in the past, multiple times, today's symptoms are similar, to previous pancreatitis. The patient has been recently seen by a physician: the patient's primary care provider, Dr. Albarado earlier today, with similar presenting complaints, and was sent to the [facility] Emergency Department for further evaluation. Historical: - Allergies: 16:00 Dilaudid; ww 16:00 Morphine (Anaphylaxis); ww - Home Meds: 16:00 Lactulose Oral once daily [Active]; ww - PMHx: 16:00 Anemia; breast cancer; Cirrhosis; fatty liver; varices; Pancreatitis; ww - PSHx: 16:00 Appendectomy; Cholecystectomy; Lumpectomy of breast; Total abdominal hysterectomy; ww - Immunization history:: Flu vaccine is up to date. - Social history:: Smoking status: Patient denies any tobacco usage or history of. Patient/guardian denies using alcohol. ROS: 16:16 Constitutional: Negative for fever, chills, and weight loss, Cardiovascular: Negative pm1 for chest pain, palpitations, and edema, Respiratory: Negative for shortness of breath, cough, wheezing, and pleuritic chest pain. 16:16 : Negative for injury, bleeding, discharge, and swelling, MS/Extremity: Negative for injury and deformity, Skin: Negative for injury, rash, and discoloration, Neuro: Negative for headache, weakness, numbness, tingling, and seizure. 16:16 Abdomen/GI: Positive for abdominal pain, nausea, Negative for vomiting, diarrhea, constipation. 16:16 Back: Positive for of the mid back area. 16:16 All other systems are negative. Exam: 16:16 Constitutional: This is a well developed, well nourished patient who is awake, alert, pm1 and in no acute distress. Head/Face: Normocephalic, atraumatic. 16:16 Back: No spinal tenderness. No costovertebral tenderness. Full range of motion. Skin: Warm, dry with normal turgor. Normal color with no rashes, no lesions, and no evidence of cellulitis. MS/ Extremity: Pulses equal, no cyanosis. Neurovascular intact. Full, normal range of motion. 16:16 Eyes: Exam is negative for acute changes, Extraocular movements: no acute changes, Conjunctiva: normal, no injection, Sclera: no acute changes, icterus, is not appreciated. 16:16 ENT: Exam is negative for acute changes, Mouth: Lips: normal, moist, Oral mucosa: normal, pink and intact, moist. 16:16 Cardiovascular: Exam negative for acute changes, Rate: normal, Rhythm: regular, Pulses: no pulse deficits are appreciated, Heart sounds: normal. 16:16 Respiratory: Exam negative for acute changes, respiratory distress, shortness of breath, Breath sounds: are clear throughout. 16:16 Abdomen/GI: Inspection: obese Palpation: abdomen is soft and non-tender, in all quadrants. 16:16 Neuro: Exam negative for acute changes, Orientation: is normal, Mentation: is normal, Motor: is normal, moves all fours. Vital Signs: 15:58 BP 136 / 75; Pulse 75; Resp 18; Temp 98.1; Pulse Ox 100% on R/A; Weight 115.67 kg; ww Height 5 ft. 4 in. (162.56 cm); Pain 10/10; 17:24 BP 135 / 57; Pulse 71; Resp 18; Pulse Ox 99% ; leone 18:21 BP 124 / 80; Pulse 73; Resp 18; Pulse Ox 100% on R/A; leone 19:40 BP 128 / 70; Pulse 76; Resp 18 S; Pulse Ox 100% on R/A; tw5 15:58 Body Mass Index 43.77 (115.67 kg, 162.56 cm) ww MDM: 16:14 Patient medically screened. pm1 19:04 Data reviewed: vital signs. Data interpreted: Pulse oximetry: on room air is 100 %. pm1 Interpretation: normal. 19:04 Counseling: I had a detailed discussion with the patient and/or guardian regarding: the pm1 historical points, exam findings, and any diagnostic results supporting the discharge/admit diagnosis, lab results, radiology results, the need for outpatient follow up, a family practitioner, a prosthetic technician, to return to the emergency department if symptoms worsen or persist or if there are any questions or concerns that arise at home. 19:04 ED course: Patient requested admission if possible but explained to the patient that pm1 she unfortunately does not meet any admission requirements. Discussed with hospitalist and she does not meet admission requirements with him also. 19:08 ED course: Patient takes hydrocodone at home for chronic pain management. pm1 03/30 16:15 Order name: Basic Metabolic Panel; Complete Time: 17:36 pm1 03/30 16:15 Order name: CBC with Diff pm1 03/30 16:15 Order name: Hepatic Function; Complete Time: 17:36 pm1 03/30 16:15 Order name: Lipase; Complete Time: 17:36 pm1 03/30 18:15 Order name: Urine Dipstick--Ancillary (enter results); Complete Time: 18:21 bd 03/30 16:15 Order name: IV Saline Lock; Complete Time: 17:10 pm1 03/30 18:07 Order name: Abdomen ; Complete Time: 18:27 EDMS 03/30 16:15 Order name: Labs collected and sent; Complete Time: 17:10 pm1 03/30 16:15 Order name: Urine Dipstick-Ancillary (obtain specimen); Complete Time: 18:12 pm1 Administered Medications: 17:10 Drug: fentaNYL (PF) 50 mcg Route: IVP; Site: left hand; 5 18:14 Follow up: Response: No adverse reaction leone 17:10 Drug: Zofran (Ondansetron) 4 mg Route: IVP; Site: left hand; 5 18:14 Follow up: Response: No adverse reaction leone 17:10 Drug: NS 0.9% 500 ml Route: IV; Rate: bolus; Site: left hand; 5 18:14 Follow up: Response: No adverse reaction; IV Status: Completed infusion 19:40 Drug: fentaNYL (PF) 50 mcg Route: IVP; Site: left hand; tw5 19:55 Follow up: Response: No adverse reaction; RASS: Alert and Calm (0) tw5 19:40 Drug: Pepcid (famotidine) 20 mg Route: IVP; Site: left hand; tw5 19:56 Follow up: Response: No adverse reaction tw5 19:40 Drug: Zofran (Ondansetron) 4 mg Route: IVP; Site: left hand; tw5 19:56 Follow up: Response: No adverse reaction tw5 Disposition: 03/31 18:57 Co-signature as Attending Physician, Homero Terrell MD I agree with the assessment and vicente plan of care. Disposition Summary: 03/30/21 19:07 Discharge Ordered Location: Home pm1 Problem: new pm1 Symptoms: have improved pm1 Condition: Stable pm1 Diagnosis - Abdominal pain, unspecified pm1 - Other chronic pancreatitis pm1 Followup: pm1 - With: Emergency Department - When: As needed - Reason: Worsening of condition Followup: pm1 - With: Private Physician - When: 2 - 3 days - Reason: Recheck today's complaints, Continuance of care, Re-evaluation by your physician Discharge Instructions: - Discharge Summary Sheet pm1 - Abdominal Pain, Adult pm1 - Chronic Pancreatitis pm1 Forms: - Medication Reconciliation Form pm1 - Thank You Letter pm1 - Antibiotic Education pm1 - Prescription Opioid Use pm1 Prescriptions: - ondansetron 4 mg Oral tablet,disintegrating - place 1 tablet by TRANSLINGUAL route every 8 hours As needed; 15 tablet; pm1 Refills: 0, Product Selection Permitted Signatures: Dispatcher [employer] Homero Mauro MD MD cha Marinas, Patrick, ROS SHORT STORY WRITER pm1 Kenna Kirkland tw5 Chante Bustamante RN RN jh5 Emily Kirkland RN RN frances Dao-StageJune potts Corrections: (The following items were deleted from the chart) 03/30 18:07 16:16 Abdomen Pelvis W Con+CT.RAD.BRZ ordered. EDVT EDMS
--- NOTE | 2021-03-30 19:08 | ER ---
Nurse's Notes [facility] Name: Zenaida Goss Age: 60 yrs Sex: Female : 1960 Arrival Date: 03/30/2021 Time: 15:42 Bed 5 Private MD: Diagnosis: Abdominal pain, unspecified;Other chronic pancreatitis Presentation: 03/30 15:58 Chief complaint: Patient states: Left upper quadrant pain that is radiating to the ww right side and to her back. Her PCP sent her here for evaluation. Patient states pain is similar to when she has pancreatitis prior. Coronavirus screen: Vaccine status: Patient reports receiving the 2nd dose of the covid vaccine. Client denies travel out of the [place] in the last 14 days. Ebola Screen: Patient negative for fever greater than or equal to 101.5 degrees Fahrenheit, and additional compatible Ebola Virus Disease symptoms Patient denies exposure to infectious person. Patient denies travel to an Ebola-affected area in the 21 days before illness onset. No symptoms or risks identified at this time. Initial Sepsis Screen: Does the patient meet any 2 criteria? No. Patient's initial sepsis screen is negative. Does the patient have a suspected source of infection? No. Patient's initial sepsis screen is negative. Risk Assessment: Do you want to hurt yourself or someone else? Patient reports no desire to harm self or others. Onset of symptoms was March 27, 2021. 15:58 Method Of Arrival: Ambulatory 15:58 Acuity: TANK 3 ww Triage Assessment: 16:00 General: Appears uncomfortable, obese, Behavior is cooperative, appropriate for age. ww Pain: Complains of pain in back and abdomen Pain radiates to back. Neuro: Level of Consciousness is awake, alert, obeys commands, Oriented to person, place, time, situation, Appropriate for age Speech is normal. Cardiovascular: Denies chest pain, shortness of breath, Capillary refill < 3 seconds. Respiratory: Airway is patent Respiratory effort is even, unlabored, Respiratory pattern is regular, symmetrical. GI: Abdomen is tender to palpation in right upper quadrant and left upper quadrant Reports upper abdominal pain, nausea. : No deficits noted. No signs and/or symptoms were reported regarding the genitourinary system. Derm: No deficits noted. No signs and/or symptoms reported regarding the dermatologic system. Skin is intact, Skin is pink, warm \T\ dry. Musculoskeletal: No deficits noted. No signs and/or symptoms reported regarding the musculoskeletal system. Historical: - Allergies: 16:00 Dilaudid; ww 16:00 Morphine (Anaphylaxis); ww - Home Meds: 16:00 Lactulose Oral once daily [Active]; ww - PMHx: 16:00 Anemia; breast cancer; Cirrhosis; fatty liver; varices; Pancreatitis; ww - PSHx: 16:00 Appendectomy; Cholecystectomy; Lumpectomy of breast; Total abdominal hysterectomy; ww - Immunization history:: Flu vaccine is up to date. - Social history:: Smoking status: Patient denies any tobacco usage or history of. Patient/guardian denies using alcohol. Screenin:22 Abuse screen: Denies threats or abuse. Denies injuries from another. Nutritional jh5 screening: No deficits noted. Tuberculosis screening: No symptoms or risk factors identified. Fall Risk Assessment: 16:22 General: Appears in no apparent distress. Pain: Complains of pain in back and abdomen. jh5 GI: Bowel sounds Reports upper abdominal pain, cramping. Vital Signs: 15:58 BP 136 / 75; Pulse 75; Resp 18; Temp 98.1; Pulse Ox 100% on R/A; Weight 115.67 kg; ww Height 5 ft. 4 in. (162.56 cm); Pain 10/10; 17:24 BP 135 / 57; Pulse 71; Resp 18; Pulse Ox 99% ; leone 18:21 BP 124 / 80; Pulse 73; Resp 18; Pulse Ox 100% on R/A; leone 19:40 BP 128 / 70; Pulse 76; Resp 18 S; Pulse Ox 100% on R/A; tw5 15:58 Body Mass Index 43.77 (115.67 kg, 162.56 cm) ED Course: 15:42 Patient arrived in ED. rg4 16:00 Triage completed. ww 16:00 Arm band placed on left wrist. ww 16:10 Nickolas Gomez NP is PHCP. pm1 16:10 Homero Terrell MD is Attending Physician. pm1 16:22 Chante Bustamante RN is Primary Nurse. 5 16:22 Patient has correct armband on for positive identification. Placed in gown. Bed in low jh5 position. 16:22 No provider procedures requiring assistance completed. jh5 17:10 Basic Metabolic Panel Sent. jh5 17:10 CBC with Diff Sent. jh5 17:10 Hepatic Function Sent. jh5 17:10 Lipase Sent. jh5 17:25 Inserted saline lock: 22 gauge in left hand, using aseptic technique. leone 18:08 Abdomen In Process Unspecified. EDMS 19:27 Primary Nurse role handed off by Chante Bustamante RN mw2 19:57 IV discontinued, intact, bleeding controlled, No redness/swelling at site. Pressure tw5 dressing applied. Administered Medications: 17:10 Drug: fentaNYL (PF) 50 mcg Route: IVP; Site: left hand; jh5 18:14 Follow up: Response: No adverse reaction leone 17:10 Drug: Zofran (Ondansetron) 4 mg Route: IVP; Site: left hand; jh5 18:14 Follow up: Response: No adverse reaction leone 17:10 Drug: NS 0.9% 500 ml Route: IV; Rate: bolus; Site: left hand; jh5 18:14 Follow up: Response: No adverse reaction; IV Status: Completed infusion leone 19:40 Drug: fentaNYL (PF) 50 mcg Route: IVP; Site: left hand; tw5 19:55 Follow up: Response: No adverse reaction; RASS: Alert and Calm (0) tw5 19:40 Drug: Pepcid (famotidine) 20 mg Route: IVP; Site: left hand; tw5 19:56 Follow up: Response: No adverse reaction tw5 19:40 Drug: Zofran (Ondansetron) 4 mg Route: IVP; Site: left hand; tw5 19:56 Follow up: Response: No adverse reaction tw5 Outcome: 19:07 Discharge ordered by . pm1 19:57 Discharged to home ambulatory. tw5 19:57 Condition: stable 19:57 Discharge instructions given to patient, Instructed on discharge instructions, follow up and referral plans. medication usage, Demonstrated understanding of instructions, follow-up care, medications, Prescriptions given X 1. 19:58 Patient left the ED. tw5 Signatures: Dispatcher [employer] EDMS Nickolas Gomez NP [employer] ADMINISTRATOR pm1 Di Gao rg4 Marta Smith mw2 Kenna Kirkland tw5 Chante Bustamante RN RN jh5 Emily Kirkland RN RN ww June Tate Corrections: (The following items were deleted from the chart) 16:03 15:58 Pulse 75bpm; Resp 18bpm; Pulse Ox 100% RA; Temp 98.1F; 115.67 kg; Height 5 ft. 4 ww in.; BMI: 43.7; Pain 10; ww
[2021-03-30] MEDS ORDERED: FAMOTIDINE 20 MG/2 ML VIAL IV ONE (19:25)
[2021-03-30 20:09] VITALS: TEMP 98.1
[2021-03-30 20:31] VITALS: O2SAT 100
[2021-03-30 20:32] VITALS: BP 128/70
[2021-03-30 21:03] LABS: Blood Morphology Comment NOT SEEN (NOT SEEN); Platelet Estimate DECR; White Blood Cell Scan OK (OK)
== END 2021-03-30 19:58 | disposition home or self-care (01) ==
LOC: ER 15:25
DX: K86.1 Other chronic pancreatitis (principal); Z88.5 Allergy status to narcotic agent
CPT/HCPCS: 96361; 85025; 80048; 36415; 80076; 81003; 83690; 74176; 96375; 96374; 99284; J3010 ×2; J7040; J2405 ×2

== ENCOUNTER 2021-04-08 09:50 | Emergency (ER) | payer OTHER ==
--- OUTSIDE RECORDS SUMMARY | 2021-04-08 09:58 | XMS REPORT | Continuity of Care Document ---
:1960 Author Organization [facility] t Address [address] [place] [address] Dr. [address] [place] [address] Care Team Providers Name Role Phone Sami Miranda MD Primary Care Physician [facility] Attending Clinician Unavailable José Manuel GREEN Attending Clinician Unavailable Beatriz STERNP, F Attending Clinician Nancy REYES Attending Clinician [...] Number Effective Date Expiration Date Deshawn blancas [facility] [id number] 2019 CHOICE 00:00:00 Problems Condition Condition Condition [...] Other Other Disease Active Univers cirrhosis cirrhosis 6- ity of of liver of liver 00:00: [place] 00 Medical Branch ANAYA ANAYA Disease Active Univers (nonalcoho (nonalcoho 6- it y of lic lic 00:00: [place] steatohepa steatohepa 00 Me dical titis) titis) Branch Hypokalemi Hypokalemi Disease Active U nivers a a 6-21 ity of 00:00: [place] 00 Medical Branch Acute Acute Disease Active Univers colitis colitis 6- ity of 00:00: [place] 00 Medical [...] vomiting vomiting 08-07 ity of 00:00: [place] 00 Medical Branch Primary Primary Diagnosis Active [...] Univers PHONE INGREDI 09-30 ity of 00:00: Medical Branch MORPHINE DRUG Active High Anaphylaxis Uni vers INGREDI 06-30 ity of 00:00: [place] 00 Medical Branch Morphine Propensi Active Swelling Throat Univ ers ty to 06-30 closes, ity of adverse 00:00: tongue [place] reaction 00 swelling Medica l s Branch MORPHINE Adverse Active Info Not [facility] Social History Social Habit Start Date Stop Date Quantity Comments Source Exposure to Not sure [facility] SARS-CoV-2 [place] [facility] (event) Branch Alcohol intake 2021-04-02 2021-04-02 Ex-drinker [facility] 00:00:00 00:00:00 (finding) [facility] Tobacco use and 2016-08-07 2016-08-07 Never used Universit y of exposure 00:00:00 00:00:00 [facility] Sex Ass[birth year] At [birth year] Universit y of 00:00:00 00:00:00 [facility] Smoking Status Start Date Stop Date Source Never smoker [facility] Medications Ordered Filled Start Stop Current Ordering Indication Dosage Frequency Signature Comments Components Source Medication Medication Date Date Medication? Clinician (SIG) Name Name dexamethaso 2020-04 10mg 10 mg, Uni vers ne 06-03 Oral, ity of (DECADRON 20:45: 20:05 ONCE, 1 [place] PHOSPHATE[place] 00 :00 dose, On Medic al injection Geraldine Branch 10 mg 04/02/21 at 1445, Routine ketorolac 2020-04- No 30mg 30 mg, Unive rs (TORADOL) 06-03 12-23 Intramuscu ity of injection 20:45: 20:05 lar, ONCE, [place] 30 mg 00 :00 1 dose, On Medical [place]ine Branch 04/02/21 at 1445, VERN ondansetron 2020-04 Yes [id number] 4mg Take 1 Univers 4 mg 2-23 tablet by ity of disintegrat 00:00: mouth [place] ing tablet 00 every 8 Medica l (eight) Branch hours as needed for Nausea and Vomiting (N/V). ondansetron 2020-04 Yes [id number] 4mg Take 1 Univers 4 mg 2-23 tablet by ity of disintegrat 00:00: mouth [place] ing tablet 00 every 8 Medica l (eight) Branch hours as needed for Nausea and Vomiting (N/V). cholecalcif 2020- No [id number] 1999U Take 2 Univers nuno, 6-26 07-27 tablets by ity of vitamin D3, 00:00: 04:59 [place] 25 mcg 00 :00 daily for Medical (1,000 30 days. Branch unit) tablet cyanocobala 2020- No [id number] 1000ug inject 1 Univers min 1,000 6-26 07-27 mL under ity o f mcg/mL 00:00: 04:59 the skin [place] injection 00 :00 every 24 Medica l (twenty-fo Branch ur) hours for 30 days. KCL 20 mEq 2020- No [id number] 20meq Take 1 Univers tablet 6-26 07-27 tablet by ity of 00:00: 04:59 mouth [place] 00 :00 daily for Medical 30 days. Branch cholecalcif 2020- No [id number] Take 2 Univers nuno, 6-26 07-27 tablets by ity of vitamin D3, 00:00: 04:59 mouth [place] 25 mcg 00 :00 daily for Medical (1,000 30 days. Branch unit) tablet cyanocobala 2020- No [id number] 1000ug inject 1 Univers min 1,000 - 07-27 mL under ity o f mcg/mL 00:00: 04:59 the skin [place] injection 00 :00 every 24 Medica l (twenty-fo Branch ur) hours for 30 days. KCL 20 mEq 2020- No [id number] 20meq Take 1 Univers tablet 10-04 07-27 tablet by ity of 00:00: 04:59 mouth [place] 00 :00 daily for Medical 30 days. Branch lactulose Yes 30mL Take 30 mL Un marline 10 gram/15 6-25 by mouth ity o f mL oral 18:10: daily. [place] solution 25 Medical Branch pantoprazol Yes 40mg Take 40 mg Univers e 6-25 by mouth ity of (PROTONIX) 18:10: daily. [place] 40 mg EC 25 Medical tablet Branch lactulose Yes 30mL Take 30 mL Un marline 10 gram/15 6-25 by mouth ity o f mL oral 18:10: daily. [place] solution 25 Medical Branch pantoprazol Yes 40mg [...] ity o f mL oral 13:10: daily. [place] solution 25 Medical Branch pantoprazol Yes 40mg Take 40 mg Univers e 6-25 by mouth ity of (PROTONIX) 13:10: daily. [place] 40 mg EC 25 Medical tablet Branch lactulose Yes 30mL Take 30 mL Un marline 10 gram/15 6-25 by mouth ity o f mL oral 13:10: daily. [place] solution 25 Medical Branch pantoprazol Yes 40mg Take 40 mg Univers e 6-25 by mouth ity of (PROTONIX) 13:10: daily. [place] 40 mg EC 25 Medical tablet Branch lactulose 0 Yes 30mL Take 30 mL Un marline 10 gram/15 6-25 by mouth ity o f mL oral 13:10: daily. [place] solution 25 Medical Branch pantoprazol Yes 40mg [...] ity o f mL oral 13:10: daily. [place] solution 25 Medical Branch pantoprazol Yes 40mg [...] unresponsi ve to Ondansetro n proMETHazin Yes [id number] 12.5mg Take 1 Univers e 12.5 mg 6-25 tablet by ity o f tablet 00:00: mouth [place] 00 every 6 Medical (six) Branch hours as needed for Nausea and Vomiting (N/V) or N/V unresponsi ve to Ondansetro n. proMETHazin Yes [id number] 12.5mg Take 1 Univers e 12.5 mg 6-25 tablet by ity o f tablet 00:00: mouth [place] 00 every 6 Medical (six) Branch hours as needed for Nausea and Vomiting (N/V) or N/V unresponsi ve to Ondansetro n. proMETHazin Yes [id number] 12.5mg Take 1 Univers e 12.5 mg 6-25 tablet by ity o f tablet 00:00: mouth [place] 00 every 6 Medical (six) Branch hours as needed for Nausea and Vomiting (N/V) or N/V unresponsi ve to Ondansetro n. proMETHazin Yes [id number] 12.5mg Take 1 Univers e 12.5 mg 6-25 tablet by ity o f tablet 00:00: mouth [place] 00 every 6 Medical (six) Branch hours as needed for Nausea and Vomiting (N/V) or N/V unresponsi ve to Ondansetro n. proMETHazin Yes [id number] 12.5mg Take 1 Univers e 12.5 mg 6-25 tablet by ity o f tablet 00:00: mouth [place] 00 every 6 Medical (six) Branch hours as needed for Nausea and Vomiting (N/V) or N/V unresponsi ve to Ondansetro n. proMETHazin Yes [id number] 12.5mg Take 1 Univers e 12.5 mg 6-25 tablet by ity o f tablet 00:00: mouth [place] 00 every 6 Medical (six) Branch hours as needed for Nausea and Vomiting (N/V) or N/V unresponsi ve to Ondansetro n. proMETHazin Yes [id number] 12.5mg Take 1 Univers e 12.5 mg 6-25 tablet by ity o f tablet 00:00: mouth [place] 00 every 6 Medical (six) Branch hours as needed for Nausea and Vomiting (N/V) or N/V unresponsi ve to Ondansetro n. furosemide 2020- No [id number] 40mg Take 1 Univers 40 mg 6-25 - tablet by ity of tablet 00:00: 04:59 mouth [place] 00 :00 every Medical morning Branch and evening for 30 days. lipase-prot 2020- No [id number] 2{capsu Take 2 Univers ease-amylas 6-25 - le} capsules ity of e 00:00: 04:59 by mouth 3 [place] 12,000-38,0 00 :00 (three) Medic al 00 -60,000 times Branch unit daily with capsule meals for 30 days. lactobacill No [id number] .5mg Take 1 Univers us 6-25 07-26 tablet by ity of acidophilus 00:00: 04:59 mouth 2 [place] 00 :00 (two) Medical times Branch daily for 30 days. furosemide 2020- No [id number] 40mg Take 1 Univers 40 mg 6-25 -26 tablet by ity of tablet 00:00: 04:59 mouth [place] 00 :00 every Medical morning Branch and evening for 30 days. lipase-prot 2020- No [id number] 2{capsu Take 2 Univers ease-amylas 6-25 07-26 le} capsules ity of e 00:00: 04:59 by mouth 3 [place] 12,000-38,0 00 :00 (three) Medic al 00 -60,000 times Branch unit daily with capsule meals for 30 days. lactobacill 2020- No [id number] .5mg Take 1 Univers us 6-25 07-26 tablet by ity of acidophilus 00:00: 04:59 mouth 2 [place] 00 :00 (two) Medical times Branch daily for 30 days. vancomycin 2020- No [id number] 125mg Take 1 Univers 125 mg 6-25 07-06 capsule by ity of capsule 00:00: 04:59 mouth 4 [place] 00 :00 (four) Medical times Branch daily for 10 days. vancomycin No [id number] 125mg Take 1 Univers 125 mg 6-25 [...] Indication s: acute pain cephALEXin 2020- No [id number] 500mg Take 1 Univers 500 mg 10-03 capsule by ity of capsule 00:00: 04:59 mouth 4 [place] 00 :00 (four) Medical times Branch daily for 5 days. cephALEXin 2020- No [id number] 500mg Take 1 Univers 500 mg 10-03 [...] Yes 40mg 40 mg, Unive rs (LASIX) - Oral, ity of tablet 40 14:00: QAM+PM, [place] mg 00 First dose Medical on [facility] Branch 10/01/20 at 0900, Until Discontinu ed, Routine iron 2020- No 300mg 300 mg, IV Unive rs sucrose 09-30 06-24 Infusion, ity of (VENOFER) 21:30: 20:00 DAILY, [...] IV ity of (PHENERGAN) 17:11: 19:59 Piggyback, [place] 12.5 mg in 58 :55 Q4HPRN, Medica l NaCl 0.9% Starting Branch (NS) 50 mL Tue IV 09/30/20 at piggyback 1211, Until Geraldine 10/02/20 at 1459, Routine, Nausea and Vomiting (N/V) meperidine No 50mg 50 mg, Univ ers (DEMEROL) [...] QHSPRN, [place] mg 57 Starting Medical [facility] Branch 09/29/20 at 2251, Until Discontinu ed, Routine, Insomnia D5W 0.45% 2020- No IV Univers NaCl 09-29 Infusion, ity of (1/2NS) 1 L 21:00: 21:15 at 100 Quang as + KCL 20 00 :40 mL/hr, Medical mEq CONTINUOUS Branch , Starting [facility] 09/29/20 at 1600, Until Tue09/30/20 at 1615, Routine cholecalcif Yes 2000U 2,000 [facility] ers nuno 09-29 Units, ity of (vitamin 20:00: Oral, [place] D3) tablet 00 DAILY, Medical 2,000 Units First dose Br anch on [facility] 09/29/20 at 1500, Until Discontinu ed, Routine lactobacill Yes .5mg 0.5 mg, Uni vers us 09-29 Oral, BID, ity of acidophilus 14:15: First dose [place] tablet 0.5 00 on [facility] Medical mg 09/29/20 at Branch 0915, Until Discontinu ed, Routine KCL Yes 20meq 20 mEq, Univers (KLOR-CON 09-29 Oral, ity of M20) tablet 14:00: DAILY, [place] 20 mEq 00 First dose Medical (after Branch last reorder) on [facility] 09/29/20 at 0900, Until Discontinu ed, Routine lipase-prot Yes 2{capsu 2 capsule, Univers ease-amylas 09-29 le} Oral, TID ity of e (CREON) 08:45: MEALS, [place] 12,000-38,0 00 First dose Me dical 00 -60,000 on [facility] Branch unit 09/29/20 at capsule 2 0345, capsule Until Discontinu ed, Routine FENTanyl PF 2020- No 50ug 50 mcg, Un marline (SUBLIMAZE 09-29 Slow IV ity o f (PF)) 08:40: 17:13 Push, [place] injection 42 :17 Q4HPRN, Medical 50 mcg Starting Branch Tue09/29/20 at 0340, Until Tu09/30/20 at 1213, Routine, Pain (scale 7-10) piperacilli [...] :12 CONTINUOUS Medic al , Starting Branch [facility] 09/29/20 at 0245, Until Tue09/29/20 at 1449, Routine NaCl 0.9% 2020- No 2000mL at 999 Uni vers (NS) IV 09-29 mL/hr, ity of infusion 07:45: 09:04 Intravenou [place] 2,000 mL 00 :00 s, ONCE, 1 Medic al dose, [facility] 09/29/20 at 0245, Routine FENTanyl PF 2020- No 50ug 50 mcg, Un marline (SUBLIMAZE 09-29 Slow IV ity o f (PF)) 07:30: 06:27 Push, [place] injection 00 :00 ONCE, 1 Medical 50 mcg dose, [facility] 09/29/20 at 0230, Routine piperacilli 2020- No 3.375g 3.375 g, Univers n-tazobacta 09-29 IV ity of m (ZOSYN) 07:30: 07:00 Piggyback, [place] 3.375 g in 00 :00 ONCE, 1 Medica l NaCl 0.9% dose, Mon Branc h (NS) 100 mL 09/29/20 at MINI-BAG 0230, 100 mL
Reas on for Anti-Infec tive: Documented Infection< br>Documen josemanuel Infection Site: Abdominal< br>Duratio n of Therapy: Other (see Comments) pantoprazol No 40mg 40 mg, IV Univers e 09-29 Piggyback, ity of (PROTONIX) 06:45: 21:11 Q12H, [place] 40 mg in 00 :56 First dose Medic al NaCl 0.9% on [facility] Branch (NS) 100 mL 09/29/20 at MINI-BAG [...] injection 4 17 Starting Medi molly mg [facility] 09/29/20 at 0142, Until Discontinu ed, Routine, Nausea and Vomiting (N/V) iopamidol 2020- No [id number] 100mL 100 mL, Univers (ISOVUE 09-29 Intravenou ity o f 370-500 mL) 06:00: 04:53 s, ONCE, 1 [place] injection 00 :00 dose, Mon Medic al 100 mL 09/29/20 at Branch 0100, Routine KCL 2020- No 40meq 40 mEq, Univers (KLOR-CON 09-29 [...] No Gm [address] [facility] 09-17 07-09 [facility] 00:[facility] 00 [facility] flu vaccine 2019- No .5mL 0.5 mL, Un marline 6 months 08-1002 Intramuscu ity of and up 20:51: 20:54 [...] Branch injection 1000, 120 mL Routine ondansetron 2019-0 Yes 4mg 4 mg, Slow Univers (ZOFRAN [...] for Pain (scale 4-6). acetaminoph 2020-0 Yes [id number] 1{tbl} Take 1 Univers en-codeine 5-02 tablet by ity of 300-30 mg 00:00: mouth [place] tablet 00 every 4 Medical (four) Branch hours as needed for Pain (scale 4-6). acetaminoph 2020-0 Yes [id number] 1{tbl} Take 1 Univers en-codeine 5-02 tablet by ity of 300-30 mg 00:00: mouth [place] tablet 00 every 4 Medical (four) Branch hours as needed for Pain (scale 4-6). acetaminoph 2020-0 Yes [id number] 1{tbl} Take 1 Univers en-codeine 5-02 tablet by ity of 300-30 mg 00:00: mouth [place] tablet 00 every 4 Medical (four) Branch hours as needed for Pain (scale 4-6). lactulose 2019-0 2020- No [id number] 30mL Take 30 mL Univers 10 gram/15 5- 06-02 by mouth 2 it y of mL oral 00:00: 04:59 (two) [place] solution 00 :00 times Medical daily for Branch 30 days. pantoprazol 2019-0 2020- No [id number] 40mg Take 1 Univers e 40 mg EC 5- 06-02 tablet by ity of tablet 00:00: 04:59 mouth [place] 00 :00 daily for Medical 30 days. Branch lactulose 2019-0 2020- No [id number] 30mL Take 30 mL Univers 10 gram/15 5-02 06-02 by mouth 2 it y of mL oral 00:00: 04:59 (two) [place] solution 00 :00 times Medical daily for Branch 30 days. pantoprazol 2019-0 2020- No [id number] 40mg Take 1 Univers e 40 mg EC 5-02 06-02 tablet by ity of tablet 00:00: 04:59 mouth [place] 00 :00 daily for Medical 30 days. Branch propranolol 2019-0 2020- No [id number] 10mg Take 1 Univers 10 mg 5-02 05-02 tablet by ity of tablet 00:00: 00:00 mouth 2 [place] 00 :00 (two) Medical times Branch daily for 30 days. ibuprofen 2019-0 Yes 600mg 600 mg, Univ ers (IBU) 5- Oral, ity of tablet 600 20:57: Q6HPRN, [place] mg 31 Starting Medical Tue08/10/19 Branch at 1557, Until Discontinu ed, Routine, Pain (scale 1-3) enoxaparin 2020-0 Yes 40mg 40 mg, Unive rs (LOVENOX) 08-09 Subcutaneo ity of injection 14:00: us, DAILY, [place] 40 mg 00 First dose Medical on Tue Branch 08/10/19 at 0900, Until Discontinu ed, Routine pantoprazol 2020-0 Yes 40mg 40 mg, IV U nivers [...] Branch 08/10/19 at 0600, Routine D5W-LR IV 2020-0 Yes 1000mL at 100 Univ ers infusion [...] Yes Gm not [facility] en-Codeine en-Codeine [place] Kyle - #3 #3 [facility] Immunizations Ordered Filled Immunization Date Status Comments [facility] Immunization Name Name Pneumococcal 2020-10-03 Completed [...] Completed Unive rsity of MODERNA VACCINE 00:00:00 [facility] ical Branch SARS-COV-2 COVID-19 2020-08-08 Completed Unive rsity of MODERNA VACCINE 00:00:00 [facility] ical Branch SARS-COV-2 COVID-19 2020-08-08 Completed Unive rsity of MODERNA VACCINE 00:00:00 [facility] ical Branch SARS-COV-2 COVID-19 2020-08-08 Completed Unive rsity of MODERNA VACCINE 00:00:00 [facility] ical Branch SARS-COV-2 COVID-19 2020-08-08 Completed Unive rsity of MODERNA VACCINE 00:00:00 [facility] ical Branch SARS-COV-2 COVID-19 2020-08-08 Completed Unive rsity of MODERNA VACCINE 00:00:00 [facility] ical Branch SARS-COV-2 COVID-19 2020-08-08 Completed Unive rsity of MODERNA VACCINE 00:00:00 [facility] SARS-COV-2 COVID-19 2020-08-08 Completed Unive rsity of MODERNA VACCINE 00:00:00 [facility] SARS-COV-2 COVID-19 2020-07-11 Completed Unive rsity of MODERNA VACCINE 00:00:00 [facility] SARS-COV-2 COVID-19 2020-07-11 Completed Unive rsity of MODERNA VACCINE 00:00:00 [facility] SARS-COV-2 COVID-19 2020-07-11 Completed Unive rsity of MODERNA VACCINE 00:00:00 [facility] SARS-COV-2 COVID-19 2020-07-11 Completed Unive rsity of MODERNA VACCINE 00:00:00 [facility] SARS-COV-2 COVID-19 2020-07-11 Completed Unive rsity of MODERNA VACCINE 00:00:00 [facility] SARS-COV-2 COVID-19 2020-07-11 Completed Unive rsity of MODERNA VACCINE 00:00:00 [facility] SARS-COV-2 COVID-19 2020-07-11 Completed Unive rsity of MODERNA VACCINE 00:00:00 [facility] SARS-COV-2 COVID-19 2020-07-11 Completed Unive rsity of MODERNA VACCINE 00:00:00 [facility] Influenza Virus 2019-08-11 Completed Universit y of Vaccine [place] .5 mL 00:00:00 [facility] 6+ MO Branch Influenza Virus 2019-08-11 Completed Universit y of Vaccine [place] .5 mL 00:00:00 [place] [facility] IM 6+ MO Branch Influenza Virus 2019-08-11 Completed Universit y of Vaccine [place] .5 mL 00:00:00 [place] [facility] IM 6+ MO Branch Influenza Virus 2019-08-11 Completed Universit y of Vaccine [place] .5 mL 00:00:00 [place] [facility] IM 6+ MO Branch Influenza Virus 2019-08-11 Completed Universit y of Vaccine [place] .5 mL 00:00:00 [place] [facility] IM 6+ MO Branch Influenza Virus 2019-08-11 Completed Universit y of Vaccine [place] .5 mL 00:00:00 [facility] 6+ MO Branch Influenza Virus 2019-08-11 Completed Universit y of Vaccine [place] .5 mL 00:00:00 [place] [facility] IM 6+ MO Branch Influenza Virus 2019-08-11 Completed Universit y of Vaccine [place] .5 mL 00:00:00 [place] [facility] IM 6+ MO Branch Influenza Virus 2019-08-11 Completed Universit y of Vaccine [place] .5 mL 00:00:00 [place] [facility] IM 6+ MO Branch Influenza Virus 2019-08-11 Completed Universit y of Vaccine [place] .5 mL 00:00:00 [place] [facility] IM 6+ MO Branch Influenza Virus 2019-08-11 Completed Universit y of Vaccine [place] .5 mL 00:00:00 [place] [facility] IM 6+ MO Branch Vital Signs Vital Name Observation Time Observation Value Comments Source Systolic blood 2021-04-02 18:55:00 138 mm[Hg] Univer sity of pressure [facility] Diastolic blood 2021-04-02 18:55:00 104 mm[Hg] Unive rsity of pressure [facility] Heart rate 2021-04-02 18:55:00 74 /min Universi ty [facility] Body temperature 2021-04-02 18:55:00 36.78 Sandee [facility] ersity of [facility] Respiratory rate 2021-04-02 18:55:00 18 /min Univ ersity [facility] Body weight 2021-04-02 18:55:[address] [facility] BMI 2021-04-02 18:55:00 46.35 [facility]/m2 [facility] in 2021-04-02 18:55:00 97 /min University of Arterial blood by [facility] Pulse oximetry Branch Systolic blood 2020-10-03 17:23:00 132 mm[Hg] Univer sity of pressure [facility] Diastolic blood 2020-10-03 17:23:00 56 mm[Hg] Unive rsity of pressure [facility] Heart rate 2020-10-03 17:23:00 88 /min Universi ty [facility] Body temperature 2020-10-03 17:23:00 36.94 Sandee Univ ersity of [facility] Respiratory rate 2020-10-03 17:23:00 18 /min [facility] in 2020-10-03 17:23:00 94 /min University of Arterial blood by [place] [facility] molly Pulse oximetry Branch Body weight 2020-09-30 08:11:00 121.473 kg Universi ty of [place] [facility] BMI 2020-09-30 08:11:00 47.44 kg/m2 Universi ty [facility] [place] [facility] Body height 2020-09-29 03:33:00 160 cm Universi ty [facility] [place] [facility] Diastolic blood 2019-08-11 20:04:00 44 mm[Hg] Unive rsity of pressure [facility] Heart rate 2019-08-11 20:04:00 70 /min Universi ty [facility] [place] [facility] Body temperature 2019-08-11 20:04:00 36.61 Sandee Univ ersity of [place] [facility] Respiratory rate 2019-08-11 20:04:00 18 /min Univ ersity of [place] [facility] Oxygen saturation in 2019-08-11 20:04:00 91 /min University of Arterial blood by [facility] Pulse oximetry Branch Systolic blood 2019-08-11 20:04:00 107 mm[Hg] Univer sity of pressure [facility] Body height 2019-08-10 08:01:00 162.6 cm Universi ty [facility] [place] [facility] Body weight 2019-08-10 08:01:00 119.296 kg Universi ty [facility] [place] [facility] BMI 2019-08-10 08:01:00 45.14 kg/m2 Universi ty [facility] [place] [facility] Diastolic blood 2019-08-11 20:04:00 44 mm[Hg] Unive rsity of pressure [place] [facility] Heart rate 2019-08-11 20:04:00 70 /min Universi ty [facility] [place] [facility] Body temperature 2019-08-11 20:04:00 36.61 Sandee Univ ersity of [place] [facility] Respiratory rate 2019-08-11 20:04:00 18 /min Univ ersity of [place] [facility] Oxygen saturation in 2019-08-11 20:04:00 91 /min University of Arterial blood by [facility] Pulse oximetry Branch Systolic blood 2019-08-11 20:04:00 107 mm[Hg] Univer sity of pressure [facility] Body height 2019-08-10 08:01:00 162.6 cm Universi ty [facility] [place] [facility] Body weight 2019-08-10 08:01:00 119.296 kg [facility] [place] [facility] BMI 2019-08-10 08:01:00 45.14 kg/m2 [facility] [place] [facility] Procedures Procedure Date / Time Performing Clinician Source Performed XR KNEE 3 VW LEFT 2021-04-02 20:10:39 Azalea Green [facility] CONSENT/REFUSAL FOR 2021-04-02 17:59:31 Doctor Unassigned, [facility] DIAGNOSIS AND TREATMENT [place] [facility] ASSIGNMENT OF BENEFITS 2021-03-10 20:29:46 Doctor Unassigned, [facility] [place] [facility] PHOSPHORUS 2020-10-03 08:52:00 Kim Teixeiraherine [facility] MAGNESIUM 2020-10-03 08:52:00 Puneet [facility] COMP. METABOLIC PANEL 2020-10-03 08:52:00 Puneet [facility] ([id number]) [facility] CBC WITH DIFF 2020-10-03 08:52:00 Puneet [facility] COMP. METABOLIC PANEL 2020-10-02 08:39:00 Kim Teixeiraherine [facility] ([id number]) [facility] CBC WITH DIFF 2020-10-02 08:39:00 Puneet [facility] US DUPLEX VENOUS ARM LEFT 2020-10-01 16:22:58 Brenda Teixeira [facility] - BY VASCULAR LAB [facility] COMP. METABOLIC PANEL 2020-10-01 07:45:00 Alka Tomasa [facility] ([id number]) [facility] CBC WITH DIFF 2020-10-01 07:45:00 Tomasa Escamilla [facility] TROPONIN I 2020-09-30 10:56:00 Marco Levy [facility] COMP. METABOLIC PANEL 2020-09-30 10:56:00 Wes Brito [facility] ([id number]) [facility] CBC WITH DIFF 2020-09-30 10:56:00 Wes Brito [facility] N-TERMINAL PRO-BNP 2020-09-30 08:05:00 Wes Brito [facility] OCCULT (GUAIAC) BLOOD 2020-09-30 02:10:00 Wes Brito [facility] FECAL LEUKOCYTES 2020-09-30 02:10:00 Wes Brito [facility] CLOSTRIDIUM DIFFICILE 2020-09-30 02:10:00 Millie lan [facility] FECAL PATHOGENS BY PCR 2020-09-30 02:10:00 Wes Brito [facility] POCT GLUCOSE (AUTOMATED) 2020-09-30 00:35:00 Rene Evans [facility] BASIC METABOLIC PANEL 2020-09-29 21:11:00 Wes Brito [facility] (NA, K, CL, CO2, GLUCOSE, Medica l Branch BUN, CREATININE, CA) HEMOGLOBIN 2020-09-29 21:11:00 Alka Tomasa [facility] TRANSTHORACIC ECHO (TTE) 2020-09-29 16:03:00 Marco Levy [facility] HB ECG ROUTINE & RHYTHM 2020-09-29 11:18:58 Wes Brito [facility] [place] OSMOLALITY URINE 2020-09-29 08:56:00 Millie [facility] URINE CULTURE 2020-09-29 08:56:00 Millie [facility] SODIUM, URINE RANDOM 2020-09-29 08:56:00 [facility] PROTEIN CREAT RATIO URINE 2020-09-29 08:56:00 Wes Brito [facility] BLOOD CULTURE SCREEN 2020-09-29 08:32:00 [facility] LACTIC ACID WHOLE BLOOD 2020-09-29 08:32:00 Millie lan [facility] VITAMIN B12, LEVEL 2020-09-29 08:31:00 Wes Brito [facility] C-REACTIVE PROTEIN 2020-09-29 08:31:00 Wes Brito [facility] IRON PANEL 2020-09-29 08:31:00 Millie Adnan [facility] SEDIMENTATION RATE 2020-09-29 08:31:00 Millie lan [facility] DIFF CONSULT 2020-09-29 08:31:00 Millie lan [facility] CBC WITH DIFF 2020-09-29 08:31:00 Millie [facility] PROTHROMBIN TIME / INR 2020-09-29 08:31:00 Wes Brito [facility] N-TERMINAL PRO-BNP 2020-09-29 08:31:00 Wes Brito [facility] VITAMIN D, 25-OH 2020-09-29 08:31:00 Millie [facility] PROCALCITONIN 2020-09-29 08:31:00 Millie [facility] COVID-19 (ID NOW RAPID 2020-09-29 05:10:00 Rene Evans [facility] TESTING) Medical Branch LAB ONLY COVID 2020-09-29 05:10:00 Rene [facility] INTERPRETATION [facility] CT ABDOMEN PELVIS W 2020-09-29 04:56:31 Rene Evans [facility] CONTRAST [facility] Branch URINALYSIS 2020-09-29 04:19:00 Rene Evans [facility] PHOSPHORUS 2020-09-29 03:54:00 Millie lan [facility] CREATINE KINASE 2020-09-29 03:54:00 Millie [facility] URIC ACID 2020-09-29 03:54:00 Millie [facility] LIPASE 2020-09-29 03:54:00 Rene Evans [facility] MAGNESIUM 2020-09-29 03:54:00 Millie [facility] FERRITIN SERUM 2020-09-29 03:54:00 Millie [facility] TROPONIN I 2020-09-29 03:54:00 Marco Levy [facility] THYROID STIMULATING 2020-09-29 03:54:00 Wes Brito [facility] HORMONE [facility] COMP. METABOLIC PANEL 2020-09-29 03:54:00 Rene Evans [facility] ([id number]) Medical [facility]unch LIPID PANEL (80410)(TOTAL 2020-09-29 03:54:00 Wes Brito [facility] CHOLESTEROL, [facility] TRIGLYCERIDES, HDL) CBC WITH DIFF 2020-09-29 03:54:00 Rene Evans [facility] GLYCOSYLATED HEMOGLOBIN 2020-09-29 03:54:00 Millie [facility] (A1C) [facility] N-TERMINAL PRO-BNP 2020-09-29 03:54:00 Wes Brito [facility] CONSENT/REFUSAL FOR 2020-09-29 03:18:51 Doctor Unassigned, [facility] DIAGNOSIS AND TREATMENT [place] [facility] NOTICE OF PRIVACY 2020-09-29 03:18:30 Doctor Unassigned, [facility] PRACTICES [place] [facility] ABDOMEN PELVIS W 2019-08-11 14:50:46 Corby Ca [facility] CONTRAST [facility] COMP. METABOLIC PANEL 2019-08-11 08:00:00 Wes Brito [facility] ([id number]) [facility] CBC WITH DIFFERENTIAL 2019-08-11 08:00:00 Millie [facility] CBC WITH DIFFERENTIAL 2019-08-11 08:00:00 Millie lan [facility] XR SMALL BOWEL SERIES 2019-08-10 21:18:47 Valente Piña [facility] XR ABDOMEN 1 VW 2019-08-10 11:52:39 iMllie [facility] PHOSPHORUS 2019-08-10 11:11:00 Millie [facility] CREATINE KINASE 2019-08-10 11:11:00 Millie [facility] AMYLASE 2019-08-10 11:11:00 Millie [facility] LIPASE 2019-08-10 11:11:00 Millie, [facility] Branch MAGNESIUM 2019-08-10 11:11:00 Wes Brito [facility] TEST, SERUM 2019-08-10 11:11:00 Wes Brito [facility] THYROID STIMULATING 2019-08-10 11:11:[address] [facility] COMP. METABOLIC PANEL 2019-08-10 11:11:00 Wes Brito [facility] (62062) [facility] LIPID PANEL (49771)(TOTAL 2019-08-10 11:11:00 Wes Brito [facility] CHOLESTEROL, [facility] TRIGLYCERIDES, HDL) SEDIMENTATION RATE 2019-08-10 11:11:00 Wes Brito [facility] CBC WITH DIFFERENTIAL 2019-08-10 11:11:00 Wes Brito [facility] GLYCOSYLATED HEMOGLOBIN 2019-08-10 11:11:00 Wes Brito [facility] (A1C) [facility] PROTHROMBIN TIME / INR 2019-08-10 11:11:00 Wes Brito [facility] CORONAVIRUS COVID-19 2019-08-10 09:04:00 Wes Brito [facility] TESTING [facility] Encounters Start End Encounter Admission Attending Care Care Encounter Source Date/Time Date/Time Type Type Clinicians Facility Department ID 2021-02-09 Emergency [facility] [id number] Univers 02:25:[address] [facility] 2021-04-07 2021-04-07 Letter Orthopedic [facility] [id number] Univers 00:00:00 00:00:00 (Out) Clinic SPECIALTY [id number] ity of CARE 4.2.7.2.686 [facility] AT [phone] Dc mariacarol JBFausto [address] [place] [address] [place] 2021-04-02 2021-04-02 Emergency X BEATRIZ DESASHA ERT [id number] Univers 12:58:00 15:25:00 AZALEA [facility] 2021-04-02 2021-04-02 [facility] 1.2.840.114 [id number] Univers 12:58:00 15:25:00 Azalea [facility] 350.1.13.10 ity of [place] 4.2.7.2.686 [place] [facility] [phone] [facility] 084 Bunch 2021-03-11 2021-03-11 Telephone NancyVERONIQUE 1.2.009.996 [id number] Univers 00:00:00 00:00:00 Frances GONZALO 350.1.13.10 it y of [facility] 4.2.7.2.686 Quang as [phone] [facility] 019 Bunch 2021-03-10 2021-03-10 Outpatient R NETTIE [facility] [id number] Univers 14:45:00 14:51:[address] [facility] 2021-03-10 2021-03-10 Outpatient R [facility] [id number] Univers 14:45:00 14:45:[id number] [facility] 2021-03-10 2021-03-10 Laboratory Only, Ang Db Test [facility] 1.2.8 40.114 [id number] Univers 14:29:53 14:44:53 Only Unknown, Attending HEALTH 350.1.13.10 ity of [place] 4.2.7.2.686 Quang as MARINA?BLEA [phone] [address] MEDICAL OFFICE BUILDING 2021-03-10 2021-03-10 Orders Doctor VERONIQUE 1.2.840.114 [id number] Univers 00:00:00 00:00:00 Only Unassigned, GONZALO 350.1.13.10 ity of [place] [facility] 4.2.7.2.686 Quang as [phone] [facility] 009 Branch 2021-02-18 2021-02-20 Inpatient JAIME, [facility] [id number] 623 [place] 00:00:00 00:00:00 CHERI [address] 2021-02-03 2021-02-04 Emergency X [facility] ERT [id number] Univers 21:10:00 03:21:[address] [facility] 2020-10-21 2020-10-27 Inpatient SYLVIA, [facility] [id number] 8824 [place] 00:00:00 00:00:00 ROBERTH 980 Method i 2020-10-06 2020-10-06 Transition Jocelyne Taylor 1.2.840.114 [id number] [facility] 00:00:00 00:00:00 of Care Madiha Sotelo 350.1.13.10 i ty of [place]2.7.2.[place] [phone] [facility] 403 Branch 2020-09-28 2020-10-03 [facility] Rene Evans [facility] 1.2.840. 114 [id number] [facility] 22:23:00 13:05:00 Encounter Wes Britoton 350.1.13.10 ity of [place].2.[place] [id number] [facility] 081 Branch 2020-09-28 2020-09-28 Orders Doctor VERONIQUE 1.2.840.[id number] [place] [address] 00:00:00 00:00:00 Only Unassigned, GONZALO 350.1.13.10 [facility] 4.2.7.2.686 Quang as [phone] [facility] 009 Branch 2020-09-09 2020-09-12 Inpatient VIKTOR BILLINGS [facility] [id number] 44156 [place] 00:00:00 00:00:00 462 Method i 2020-08-08 2020-08-08 Outpatient Sami GERMAN, [facility] [id number] Univers 15:40:00 15:40:00 TERRI ity of [facility] [place] 2020-07-11 2020-07-11 Outpatient [facility] [id number] Univers 15:40:00 15:40:[address] [facility] 2020-06-09 2020-06-22 Inpatient VIKTOR BILLINGS [facility] [id number] 79003 [place] 00:00:00 00:00:00 836 Method i 2020-03-19 2020-03-23 [facility] [id number] 848 [place] 00:00:00 00:00:00 [facility] 742 Method i 2020-03-14 2020-03-18 Inpatient ELANAR, [facility] [id number] [place] [address] 00:00:00 00:00:00 CHERI [address] 2020-02-13 2020-02-13 Laboratory Lab, [facility] [place] 1.2.840.114 [id number] 10:22:10 10:42:10 Only Fam Pob I Health 350.1.13.10 [place] 4.2.7.2.686 Professio [phone] nal [address] 2020-02-13 2020-02-13 Laboratory Lab, [facility] Fam Pob [place] 1.2 840.114 [id number] [facility] 10:22:10 10:42:10 Only Dulce Mari A Health 350.1.13.10 ity of [place] 4.2.7.2.686 Quang as Professio [phone] Dc dical [facility] 044 [address] Office [address] One 2019-09-28 2019-09-28 [facility] [id number] 09:00:00 09:00:00 [facility] ent Clinics 2019-09-18 2019-09-18 Out[facility] [id number] 09:30:00 09:30:00 [facility] ent Clinics 2019-08-14 2019-08-14 Transition Jocelyne Alexandra 1.2.840.114 [id number] 00:00:00 00:00:00 of Care Jovanny Sotelo 350.1.13.10 [place] 4.2.7.2.686 [id number] [facility] 2019-08-14 2019-08-14 Transition Jocelyne Alexandra 1.2.840.114 [id number] [facility] 00:00:00 00:00:00 of Care Jovanny Sotelo 350.1.13.10 ity of [place]2.[phone] [place] [address] Branch 2019-08-10 2019-08-11 [facility] 1.2.004.570 [id number] 02:55:00 16:09:00 Encounter Wes Amin 350.1.13.10 [place] 4.2.7.2.686 [place] [id number] 081 2019-08-10 2019-08-11 Inpatient U ANALILIA BRITO [facility] [id number] Univers 02:55:00 16:09:00 LAN [facility] 2019-08-10 2019-08-11 [facility] Millie DESASHA 1.2.524.425 [id number] Univers 02:55:00 16:09:00 Encounter Wes [place] [facility]1.13.10 [facility] 4.2.7.[address] [facility] [phone] [address] Results Test Description Test Time Test Comments Results Result Comments Source MAGNESIUM 2020-10-03 09:34:08 Test Item Value Reference Range Interpretation Comme nts MAGNESIUM (test code = 1039567132) 1.4 mg/dL 1.7-2.4 L Lab Interpretation (test code = 02158-1) [facility] (70368)2020-10-03 09:33:48 Test Item Value Reference Range Interpretation Comments NA (test code = 136 mmol/L 135-145 7858029359) K (test code = 3.3 mmol/L 3.5-5.0 L 5749358816) CL (test code = 100 mmol/L 98-108 2172502874) CO2 TOTAL (test code = 33 mmol/L 23-31 H 3141542231) AGAP (test code = 2-16 4562560425) BUN (test code = 3 mg/dL 7-23 L 0062582809) GLUCOSE (test code = 95 mg/dL 70-110 6356660245) CREATININE (test code = 0.47 mg/dL 0.50-1.04 L 3503897897) TOTAL BILI (test code = 1.5 mg/dL 0.1-1.1 H 6908470430) CALCIUM (test code = 8.1 mg/dL 8.6-10.6 L 7232588392) T PROTEIN (test code = 5.9 g/dL 6.3-8.2 L 5395557866) ALBUMIN (test code = 2.9 g/dL 3.5-5.0 L 2418382286) ALK PHOS (test code = 115 U/L 34-122 5762072874) ALTv (test code = 24 U/L 5-35 1742-6) AST(SGOT) (test code = 35 U/L 13-40 9899087122) eGFR (test code = mL/min/1.73m2 1703869047) SNOW (test code = SNOW) Association of [...] tests). Lab Interpretation Abnormal (test code = 37112-1) [facility] 09:33:28 Test Item Value Reference Range Interpretation Comments PHOSPHORUS (test code = 7621817816) 2.8 mg/dL 2.5-5.0 Lab Interpretation (test code = Normal 95699-8) [facility] WITH [id number] 09:31:46 Test Item Value Reference Range Interpretation [...] (test code = 53.8 fL 39.0-49.9 H 47876-6) RDW-CV (test code = 19.9 % 12.0-15.5 H 788-0) PLT (test code = See_Comment L [Automated 777-3) message] The sy stem which generated this result transmitted reference range : 166 - 358 10*3/ ?L. The reference r davi was not used to interpret this result as normal/abnormal . MPV (test code = 10.9 fL 9.5-12.9 66131-7) IPF % (test code = 3.6 % 1.3-7.7 Platelet count 2035232921) measured by fluorescence method. NRBC/100 WBC (test See_Comment [Automat ed code = 5914407229) message] The system which generated this result transmitted reference range : 0.0 - 10.0 /100 WBCs. The refer ence range was not u sed to interpret th is result as normal/abnormal . NRBC x10^3 (test code See_Comment [Auto mated = 8332453564) message] The s ystem which generated this result transmitted reference range : 10*3/?L. The reference range was not used to interpret this result as normal/abnormal . GRAN MAT (NEUT) % 68.1 % (test code = 770-8) IMM GRAN % (test code 1.10 % = 0916897851) LYMPH % (test code = 15.5 % 736-9) MONO % (test code = 11.3 % 5905-5) EOS % (test code = 3.4 % 713-8) BASO % (test code = 0.6 % 706-2) GRAN MAT x10^3(ANC) 2.42 10*3/uL 1.88-7.09 (test code = 0880616715) IMM GRAN x10^3 (test 0.04 10*3/uL 0.00-0.06 code = 9472654070) LYMPH x10^3 (test code 0.55 10*3/uL 1.32-3.29 L = 731-0) MONO x10^3 (test code 0.40 10*3/uL 0.33-0.92 = 742-7) EOS x10^3 (test code = 0.12 10*3/uL 0.03-0.39 711-2) BASO x10^3 (test code <0.03 0.01-0.07 = 704-7) Lab Interpretation Abnormal (test code = 36357-7) [facility] WITH [id number] 10:47:09 Test Item Value Reference Range Interpretation [...] (test code = 52.2 fL 39.0-49.9 H 49838-9) RDW-CV (test code = 18.6 % 12.0-15.5 H 788-0) PLT (test code = See_Comment L [Automated 777-3) message] The sy stem which generated this result transmitted reference range : 166 - 358 10*3/ ?L. The reference r davi was not used to interpret this result as normal/abnormal . MPV (test code = 10.1 fL 9.5-12.9 81504-8) IPF % (test code = 3.2 % 1.3-7.7 Platelet count 4973553997) measured by fluorescence method. NRBC/100 WBC (test See_Comment [Automat ed code = 6353366478) message] The system which generated this result transmitted reference range : 0.0 - 10.0 /100 WBCs. The refer ence range was not u sed to interpret th is result as normal/abnormal . NRBC x10^3 (test code See_Comment [Auto mated = 5094505311) message] The s ystem which generated this result transmitted reference range : 10*3/?L. The reference range was not used to interpret this result as normal/abnormal . GRAN MAT (NEUT) % 65.1 % (test code = 770-8) IMM GRAN % (test code 1.20 % = 4166498256) LYMPH % (test code = 16.9 % 736-9) MONO % (test code = 11.5 % 5905-5) EOS % (test code = 4.5 % 713-8) BASO % (test code = 0.8 % 706-2) GRAN MAT x10^3(ANC) 1.58 10*3/uL 1.88-7.09 L (test code = 5942620800) IMM GRAN x10^3 (test 0.03 10*3/uL 0.00-0.06 code = 3740819052) LYMPH x10^3 (test code 0.41 10*3/uL 1.32-3.29 L = 731-0) MONO x10^3 (test code 0.28 10*3/uL 0.33-0.92 L = 742-7) EOS x10^3 (test code = 0.11 10*3/uL 0.03-0.39 711-2) BASO x10^3 (test code <0.03 0.01-0.07 = 704-7) POLYCHROMASIA (test 2+ See_Comment [Automa josemanuel code = 58214-4) message] The system which generated this result transmitted reference range : 2+. The referen ce range was not u sed to interpret th is result as normal/abnormal . LG GRAN LYMPHS (test Rare Rare code = 9838315228) Lab Interpretation Abnormal (test code = 48269-8) [facility]. METABOLIC PANEL (75799)2020-10-02 10:19:28 Test Item Value Reference Range Interpretation Comments NA (test code = 135 mmol/L 135-145 5897012322) K (test code = 3.4 mmol/L 3.5-5.0 L 4602092515) CL (test code = 104 mmol/L 98-108 1317386099) CO2 TOTAL (test code = 27 mmol/L 23-31 2985469569) AGAP (test code = 2-16 4819646180) BUN (test code = 4 mg/dL 7-23 L 7687653274) GLUCOSE (test code = 97 mg/dL 70-110 1041556033) CREATININE (test code = 0.45 mg/dL 0.50-1.04 L 4398956500) TOTAL BILI (test code = 1.7 mg/dL 0.1-1.1 H 3011685949) CALCIUM (test code = 8.2 mg/dL 8.6-10.6 L 2785554266) T PROTEIN (test code = 6.0 g/dL 6.3-8.2 L 0568764939) ALBUMIN (test code = 3.1 g/dL 3.5-5.0 L 2589901862) ALK PHOS (test code = 120 U/L 34-122 3849945625) ALTv (test code = 26 U/L 5-35 1742-6) AST(SGOT) (test code = 39 U/L 13-40 5238771559) eGFR (test code = mL/min/1.73m2 9721595345) SNOW (test code = SNOW) Association of [...] tests). Lab Interpretation Abnormal (test code = 07286-5) [facility] [id number] 02:50:27COVID DMT InterpretationInterpretation/Recommendations: Molecular NAAT Tests for [...] COVID-19 testing the patient has had at [facility], including molecular NAAT testing (more commonly known as PCR testing and Rapid ID Now testing) and antibody testing. It does not take into account any testing that a patient has had outside of the [facility] medical record. [facility] LABORATORY SERVICESCOVID Resu bdoNOJT-XrS-2 NAAT (no units) ? ? Date ? Value ? 02/13/2020 ? Not Detected ? SARS-CoV-2 Rapid ID NOW (no units) ? ? Date ? Value ? 09/29/2020 ? Not Detected ? ? ? 08/10/2019 ? Not Detected ? [facility] WITH [id number] 10:31:29 Test Item Value Reference Range Interpretation [...] (test code = 52.3 fL 39.0-49.9 H 50493-2) RDW-CV (test code = 18.4 % 12.0-15.5 H 788-0) PLT (test code = See_Comment LL [Automated 777-3) message] The sy stem which generated this result transmitted reference range : 166 - 358 10*3/ ?L. The reference r davi was not used to interpret this result as normal/abnormal . MPV (test code = 11.2 fL 9.5-12.9 19798-2) IPF % (test code = 3.9 % 1.3-7.7 Platelet count 4900168785) measured by fluorescence method. NRBC/100 WBC (test See_Comment [Automat ed code = 4921653439) message] The system which generated this result transmitted reference range : 0.0 - 10.0 /100 WBCs. The refer ence range was not u sed to interpret th is result as normal/abnormal . NRBC x10^3 (test code <0.01 See_Comment [Auto mated = 5907800288) message] The s ystem which generated this result transmitted reference range : 10*3/?L. The reference range was not used to interpret this result as normal/abnormal . GRAN MAT (NEUT) % 57.5 % (test code = 770-8) IMM GRAN % (test code 0.50 % = 7676615651) LYMPH % (test code = 20.7 % 736-9) MONO % (test code = 13.3 % 5905-5) EOS % (test code = 6.9 % 713-8) BASO % (test code = 1.1 % 706-2) GRAN MAT x10^3(ANC) 1.08 10*3/uL 1.88-7.09 L (test code = 6859209441) IMM GRAN x10^3 (test <0.03 0.00-0.06 code = 4169078879) LYMPH x10^3 (test code 0.39 10*3/uL 1.32-3.29 L = 731-0) MONO x10^3 (test code 0.25 10*3/uL 0.33-0.92 L = 742-7) EOS x10^3 (test code = 0.13 10*3/uL 0.03-0.39 711-2) BASO x10^3 (test code <0.03 0.01-0.07 = 704-7) BASO STIPPLING (test Present A code = 703-9) ELLIPTO/OVAL (test 2+ See_Comment A [Automat ed code = 39521-0) message] The system which generated this result transmitted reference range : (none). The reference range was not used to interpret this result as normal/abnormal . POLYCHROMASIA (test 2+ See_Comment [Automa josemanuel code = 39015-3) message] The system which generated this result transmitted reference range : 2+. The referen ce range was not u sed to interpret th is result as normal/abnormal . Lab Interpretation Abnormal (test code = 38368-7) [facility] (49598)2020-10-01 09:19:22 Test Item Value Reference Range Interpretation Comments NA (test code = 135 mmol/L 135-145 8782035379) K (test code = 4.0 mmol/L 3.5-5.0 2787264779) CL (test code = 107 mmol/L 98-108 5869313156) CO2 TOTAL (test code = 24 mmol/L 23-31 3336302921) AGAP (test code = 2-16 8461946741) BUN (test code = 7 mg/dL 7-23 1123082759) GLUCOSE (test code = 93 mg/dL 70-110 6384582703) CREATININE (test code = 0.47 mg/dL 0.50-1.04 L 2784397689) TOTAL BILI (test code = 1.6 mg/dL 0.1-1.1 H 7276384264) CALCIUM (test code = 8.1 mg/dL 8.6-10.6 L 5470670460) T PROTEIN (test code = 5.8 g/dL 6.3-8.2 L 2740787252) ALBUMIN (test code = 2.8 g/dL 3.5-5.0 L 5626660326) ALK PHOS (test code = 106 U/L 34-122 6274629870) ALTv (test code = 23 U/L 5-35 1742-6) AST(SGOT) (test code = 39 U/L 13-40 7063300528) eGFR (test code = mL/min/1.73m2 7985928762) SNOW (test code = SNOW) Association of [...] tests). Lab Interpretation Abnormal (test code = 21830-8) [facility] [id number] 20:47:45 Test Item Value Reference Range Interpretation Comments TROPONIN I (test 0.002 ng/mL See_Comment [Automated code = 7331295155) message] The system which generated this result [...] ? Lab Interpretation Normal (test code = 33591-1) [facility] [id number] 19:11:57 Test Item Value Reference Range Interpretation Comments URINE CULTURE (test code <10,000 CFU/mL = 630-4) Gram-Positive Cocci [facility] Hospital[facility] PATHOGENS BY [id number] 18:17:03 Test Item Value Reference Range Interpretation Comments Campylobacter (jejuni, Negative Negative, coli and upsaliensis) Indeterminate, (test code = 61801-7) See comment Plesiomonas shigelloides Negative Negative, (test code = 62975-6) Indeterminate, See comment Salmonella (test code = Negative Negative, 93968-8) Indeterminate, See comment Yersinia enterocolitica Negative Negative, (test code = 06652-4) Indeterminate, See comment Vibrio (test code = Negative Negative, 64363-8) Indeterminate, See comment Vibrio cholerae (test Negative Negative, code = 41638-5) Indeterminate, See comment Enteroaggregative E. Negative Negative, coli (EAEC) (test code = Indeterminate, 20377-3) See comment Enteropathogenic E. coli Negative Negative, N/A, (EPEC) (test code = Indeterminate, 58906-1) See comment Enterotoxigenic E. coli Negative Negative, (ETEC) (test code = Indeterminate, 84972-6) See comment Shiga toxin-Producing E. Negative Negative, coli (STEC) (test code = Indeterminate, 02479-8) See comment Shigella/Enteroinvasive Negative Negative, E. coli (EIEC) (test Indeterminate, code = 39424-0) See comment Cryptosporidium (test Negative Negative, code = 40138-7) Indeterminate, See comment Cyclospora cayetanensis Negative Negative, (test code = 26673-3) Indeterminate, See comment Entamoeba histolytica Negative Negative, (test code = 13279-6) Indeterminate, See comment Giardia lamblia (test Negative Negative, code = 03053-6) Indeterminate, See comment Adenovirus F 40/41 (test Negative Negative, code = 38724-1) Indeterminate, See comment Astrovirus (test code = Negative Negative, 23583-6) Indeterminate, See comment Norovirus GI/GII (test Negative Negative, code = 22178-1) Indeterminate, See comment Rotavirus A (test code = Negative Negative, 68557-3) Indeterminate, See comment Sapovirus (test code = Negative Negative, 71790-1) Indeterminate, See comment Clostridioides Positive Negative, A (Clostridium) difficile Indeterminate, Toxin A/B (test code = See comment 11468-1) SNOW (test code = SNOW) Based on Vimessa GI Panel package insert, the Vimessa GI Panel contains a single multiplexed assay [...] Clostridium difficile toxin A/B Detected. Based the CepEnzymeRxid Xpert C. difficile/Epi assay package insert, Xpert C. difficile/Epi assay detects the toxin B gene (tcdB), the binary toxin gene (CDT), and the oqbzfp-dqmm-sncx deletion at nucleotide 117 within the gene [...] organism. Lab Interpretation (test Abnormal code = 53773-3) [facility] [id number] 14:26:32 Test Item Value Reference Range Interpretation Comments Occult (guaiac) Blood (test code = Negative Negative 2335-8) Lab Interpretation (test code = Normal 50441-7) [facility] WITH [id number] 13:54:12 Test Item Value Reference Range Interpretation [...] (test code = 52.9 fL 39.0-49.9 H 69773-2) RDW-CV (test code = 18.3 % 12.0-15.5 H 788-0) PLT (test code = See_Comment LL [Automated 777-3) message] The sy stem which generated this result transmitted reference range : 166 - 358 10*3/ ?L. The reference r davi was not used to interpret this result as normal/abnormal . MPV (test code = 10.8 fL 9.5-12.9 95387-0) IPF % (test code = 4.2 % 1.3-7.7 Platelet count 8198377833) measured by fluorescence method. NRBC/100 WBC (test See_Comment [Automat ed code = 7036789744) message] The system which generated this result transmitted reference range : 0.0 - 10.0 /100 WBCs. The refer ence range was not u sed to interpret th is result as normal/abnormal . NRBC x10^3 (test code <0.01 See_Comment [Auto mated = 6130651664) message] The s ystem which generated this result transmitted reference range : 10*3/?L. The reference range was not used to interpret this result as normal/abnormal . GRAN MAT (NEUT) % 60.0 % (test code = 770-8) IMM GRAN % (test code 0.40 % = 4401326910) LYMPH % (test code = 20.6 % 736-9) MONO % (test code = 11.3 % 5905-5) EOS % (test code = 6.9 % 713-8) BASO % (test code = 0.8 % 706-2) GRAN MAT x10^3(ANC) 1.49 10*3/uL 1.88-7.09 L (test code = 7257259937) IMM GRAN x10^3 (test <0.03 0.00-0.06 code = 7449225313) LYMPH x10^3 (test code 0.51 10*3/uL 1.32-3.29 L = 731-0) MONO x10^3 (test code 0.28 10*3/uL 0.33-0.92 L = 742-7) EOS x10^3 (test code = 0.17 10*3/uL 0.03-0.39 711-2) BASO x10^3 (test code <0.03 0.01-0.07 = 704-7) Lab Interpretation Abnormal (test code = 35752-9) [facility] METABOLIC PANEL (53660)2020-09-30 12:47:49 Test Item Value Reference Range Interpretation Comments NA (test code = 135 mmol/L 135-145 8658249358) K (test code = 4.0 mmol/L 3.5-5.0 6212476000) CL (test code = 108 mmol/L 98-108 3128723659) CO2 TOTAL (test code = 23 mmol/L 23-31 8620121208) AGAP (test code = 2-16 3307946439) BUN (test code = 8 mg/dL 7-23 8142149874) GLUCOSE (test code = 109 mg/dL 70-110 5798837215) CREATININE (test code = 0.52 mg/dL 0.50-1.04 9254689757) TOTAL BILI (test code = 1.7 mg/dL 0.1-1.1 H 1590772949) CALCIUM (test code = 8.0 mg/dL 8.6-10.6 L 8853303903) T PROTEIN (test code = 5.7 g/dL 6.3-8.2 L 7705013245) ALBUMIN (test code = 2.7 g/dL 3.5-5.0 L 6657906332) ALK PHOS (test code = 106 U/L 34-122 7750830331) ALTv (test code = 22 U/L 5-35 1742-6) AST(SGOT) (test code = 34 U/L 13-40 7914590026) eGFR (test code = mL/min/1.73m2 0934957267) SNOW (test code = SNOW) Association of [...] tests). Lab Interpretation Abnormal (test code = 19563-1) [facility] HospitalFECAL [id number] 11:49:39 Test Item Value Reference Range Interpretation Comments Fecal Leukocytes (test code = Positive Negative A 5777735016) Lab Interpretation (test code = Abnormal 16976-1) [facility] HospitalN-TERMINAL [id number] 10:20:53 Test Item Value Reference Range Interpretation Comments NT-proBNP (test code 68 pg/mL See_Comment [Autom ated = 5817025172) message] The system which generated this result transmitted reference range : <=125. The reference range was not used to interpret this result as normal/abnormal . SNOW (test code = SNOW) Biotin has been reported to cause a negative bias, interpret results relative to patient's use of biotin. Lab Interpretation Normal (test code = 97689-1) [facility] HospitalCLOSTRIDIUM DIFFICILE [id number] 05:18:16 Test Item Value Reference Range Interpretation Comments Clostridioides (Clostridium) Negative Negative difficile (test code = 56955-1) Lab Interpretation (test code = Normal 26556-7) [facility] HospitalPOKY GLUCOSE (AUTOMATED)2020-09-30 00:54:42 Test Item Value Reference Range Interpretation Comments POCT GLU (test code = 5629628091) 111 mg/dL 70-110 H Lab Interpretation (test code = Abnormal 33331-4) [facility] METABOLIC PANEL (NA, K, CL, CO2, GLUCOSE, BUN, CREATININE, CA)2020-09-29 22:08:22 Test Item Value Reference Range Interpretation Comments NA (test code = 135 mmol/L 135-145 2096768144) K (test code = 3.7 mmol/L 3.5-5.0 9734817099) CL (test code = 108 mmol/L 98-108 0498732767) CO2 TOTAL (test code = 22 mmol/L 23-31 L 5944611541) AGAP (test code = 2-16 2623970366) BUN (test code = 9 mg/dL 7-23 3133368522) GLUCOSE (test code = 104 mg/dL 70-110 1271351499) CREATININE (test code = 0.51 mg/dL 0.50-1.04 6461734933) CALCIUM (test code = 7.9 mg/dL 8.6-10.6 L 9815618182) eGFR (test code = mL/min/1.73m2 4109520017) SNOW (test code = SNOW) Association of [...] tests). Lab Interpretation Abnormal (test code = 49143-8) [facility] HospitalHEMOGLOBIN2021-06-21 21:41:20 Test Item Value Reference Range Interpretation Comments HGB (test code = 718-7) 7.4 g/dL 11.6-15.0 L Lab Interpretation (test code = Abnormal 59765-9) [facility] HospitalVITAMIN B12, [id number] 20:39:52 Test Item Value Reference Range Interpretation Comments VIT B12 (test code = 212 pg/mL 240-930 L 8427927015) SNOW (test code = SNOW) Biotin has been reported to cause a positive bias, interpret results relative to patient's use of biotin. 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.[facility] HospitalC-REACTIVE [id number] 17:01:56 Test Item Value Reference Range Interpretation Comments CRP (test code = 0301605233) 4.7 mg/dL <0.8 H Lab Interpretation (test code = Abnormal 25014-2) [facility] HospitalVITAMIN D, [id number] 16:43:29 Test Item Value Reference Range Interpretation Comments VIT D 25OH (test code = <13 25-80 L 39463-1) SNOW (test code = SNOW) Deficiency: <20 ng/mLInsufficiency: 20-24 ng/mLOptimal: 25-80 ng/mL Lab Interpretation (test Abnormal code = 89925-0) [facility] HospitalPROCALCITONIN2021-06-21 16:15:30 Test Item Value Reference Range Interpretation Comments Procalcitonin (test 0.08 ng/mL <0.07 H code = 2579407232) SNOW (test code = SNOW) INTERPRETATION OF [...] lung abscess/empyema. For further information please refer to:[email or web address] Lab Interpretation Abnormal (test code = 78267-4) [facility] HospitalOSMOLALITY [id number] 15:35:14 Test Item Value Reference Range Interpretation Comments OSMO U (test code = See_Comment [Automa josemanuel message] 9392091503) The system Zook[employer] generated this result transmitted ref erence range: 50-1,100 mOsm/kg. The re ference range was not u sed to interpret this result as normal/abnor mal. Lab Interpretation (test Normal code = 77074-0) [facility] HospitalTROPONIN [id number] 14:04:56 Test Item Value Reference Range Interpretation Comments TROPONIN I (test 0.002 ng/mL See_Comment [Automated code = 7873706618) message] The system which generated this result [...] ? Lab Interpretation Normal (test code = 80433-6) [facility] HospitalCT ABDOMEN PELVIS W [id number] 13:37:17 1. ?Findings concerning for infectious or inflammatory colitis mostpronounced in the cecum, ascending colon and rectosigmoid with probableunderlying portal colopathy. 2. ?Cirrhotic liver morphology with portal hypertension manifested bysplenomegaly, extensive portosystemic collaterals and small volume ascites. 3. ?Nonobstructive punctate right nephrolithiasis. Preliminary Report Dictated by Resident: Lázaro Bain MD., have reviewed this study and agree [...] reviewed this study and agree with theabove report.[facility] WITH [id number] 11:41:25 Test Item Value Reference Range Interpretation [...] (test code = 52.4 fL 39.0-49.9 H 97184-6) RDW-CV (test code = 18.2 % 12.0-15.5 H 788-0) PLT (test code = See_Comment LL [Automated 777-3) message] The system which generated this result transmit josemanuel reference range : 166 - 358 10*3/ ?L. The reference range was not u sed to interpret th is result as normal/abnormal . MPV (test code = Not Measure d 41448-9) IPF % (test code = 4.3 % 1.3-7.7 Platelet count 1028504748) measured by fluorescence method. NRBC/100 WBC (test See_Comment [Automat ed code = 2836723722) message] The system which generated this result transmit josemanuel reference range : 0.0 - 10.0 /100 WBCs. The reference range was not used to interpret this result as normal/abnormal . NRBC x10^3 (test code <0.01 See_Comment [Auto mated = 0807497010) message] The system which generated this result transmit josemanuel reference range : 10*3/?L. The reference range was not used to interpret this result as normal/abnormal . GRAN MAT (NEUT) % 74.4 % (test code = 770-8) IMM GRAN % (test code 0.50 % = 7467236831) LYMPH % (test code = 10.3 % 736-9) MONO % (test code = 12.3 % 5905-5) EOS % (test code = 2.0 % 713-8) BASO % (test code = 0.5 % 706-2) GRAN MAT x10^3(ANC) 3.02 10*3/uL 1.88-7.09 (test code = 2209252215) IMM GRAN x10^3 (test <0.03 0.00-0.06 code = 0668820241) LYMPH x10^3 (test 0.42 10*3/uL 1.32-3.29 L code = 731-0) MONO x10^3 (test code 0.50 10*3/uL 0.33-0.92 = 742-7) EOS x10^3 (test code 0.08 10*3/uL 0.03-0.39 = 711-2) BASO x10^3 (test code <0.03 0.01-0.07 = 704-7) PLT ESTIMATE (test Decreased Normal A code = 9317-9) SNOW (test code = SNOW) CBC smear reduced platelet Lab Interpretation Abnormal (test code = 27413-0) [facility] HospitalN-TERMINAL [id number] 11:07:24 Test Item Value Reference Range Interpretation Comments NT-proBNP (test code 79 pg/mL See_Comment [Autom ated = 6660714279) message] The system which generated this result transmitted reference range : <=125. The reference range was not used to interpret this result as normal/abnormal . SNOW (test code = SNOW) Biotin has been reported to cause a negative bias, interpret results relative to patient's use of biotin. Lab Interpretation Normal (test code = 07083-0) [facility] HospitalIRON [id number] 11:04:41 Test Item Value Reference Range Interpretation Comments IRON (test code = 2066941703) 31 ug/dL 50-160 L TIBC (test code = 9279532872) 295 ug/dL 250-410 % FE SAT (test code = 2511655259) 11 % 20-50 L Lab Interpretation (test code = Abnormal 99247-0) [facility] HospitalPROTEIN CREAT RATIO URINE [id number] 10:57:19 Test Item Value Reference Range Interpretation Comments T. PROT U (test code = 2888-6) 9 mg/dL CREAT U (test code = 6676661219) 187.5 mg/dL Protein/Creatinine Ratio Urine 0.0-2.0 (test code = 3655515042) [facility] HospitalSODIUM, URINE [id number] 10:53:21 Test Item Value Reference Range Interpretation Comments NA URINE (test code = 5017571633) 30 mmol/L [facility] HospitalSEDIMENTATION [id number] 10:33:04 Test Item Value Reference Range Interpretation Comments ESR (test code = See_Comment [Automated message] 9151256545) The system [employer] h generated this result transmitted ref erence range: 0 - 20 m m/HR. The reference r davi was not used to interpret this result as normal/abnor mal. Lab Interpretation (test Normal code = 24455-6) [facility] HospitalPROTHROMBIN TIME / [id number] 09:43:39 Test Item Value Reference Range Interpretation Comments PROTIME PATIENT (test See_Comment H [Auto mated message] code = 5964-2) The system [employer] ich generated this result transmitted ref erence range: 12.0 - 1 4.7 Seconds. The reference range was not used to int erpret this result as normal/abnormal . INR (test code = 6301-6) Nor mal INR <1.1; Warfarin Therap eutic range 2.0 to 3. 0 or 2.5 to 3.5, dep ending upon the indica tions. Lab Interpretation (test Abnormal code = 59577-5) [facility] HospitalLactic Acid Whole [id number] 08:42:38 Test Item Value Reference Range Interpretation Comments LACTIC ACID (test code = 1.47 mmol/L 0.50-2.20 2390267408) Lab Interpretation (test code = Normal 97741-3) [facility] HospitalFERRITIN [id number] 07:31:09 Test Item Value Reference Range Interpretation Comments FERRITIN (test code = 12.2 ng/mL 11.0-264.0 0118361026) SNOW (test code = SNOW) Biotin has been reported to cause a negative bias, interpret results relative to patient's use of biotin. Lab Interpretation (test Normal code = 89324-8) [facility] HospitalTHYROID STIMULATING [id number] 07:27:08 Test Item Value Reference Range Interpretation Comments TSH (test code = See_Comment [Automated message] 3904463181) The system Zookal generated this result transmitted ref erence range: 0.45 - 4 .70 mIU/L. The refe rence range was not u sed to interpret this result as normal/abnor mal. Lab Interpretation (test Normal code = 43548-6) [facility] HospitalGLYCOSYLATED HEMOGLOBIN (A1C)2020-09-29 07:05:40 Test Item Value Reference Range Interpretation Comments HGB A1C (test code = 5.0 % 4.0-5.7 4548-4) SNOW (test code = SNOW) Reference RangesNormal: <5.7%Prediabetes: 5.7 - 6.4%Diabetes: > 6.5% Lab Interpretation (test Normal code = 79690-3) [facility] HospitalURIC [id number] 07:05:35 Test Item Value Reference Range Interpretation Comments URIC ACID (test code = 6519013866) 4.2 mg/dL 2.9-6.0 Lab Interpretation (test code = Normal 41650-2) [facility] HospitalCREATINE [id number] 07:05:30 Test Item Value Reference Range Interpretation Comments CK (test code = 2527135873) 192 U/L 33-194 Lab Interpretation (test code = Normal 18915-5) [facility] HospitalN-TERMINAL [id number] 07:05:30 Test Item Value Reference Range Interpretation Comments NT-proBNP (test code 94 pg/mL See_Comment [Autom ated = 7827970952) message] The system which generated this result transmitted reference range : <=125. The reference range was not used to interpret this result as normal/abnormal . SNOW (test code = SNOW) Biotin has been reported to cause a negative bias, interpret results relative to patient's use of biotin. Lab Interpretation Normal (test code = 31533-2) [facility] HospitalMAGNESIUM2021-06-21 07:04:24 Test Item Value Reference Range Interpretation Comments MAGNESIUM (test code = 7239900376) 1.8 mg/dL 1.7-2.4 Lab Interpretation (test code = Normal 14489-1) [facility] HospitalPHOSPHORUS2021-06-21 07:03:39 Test Item Value Reference Range Interpretation Comments PHOSPHORUS (test code = 6507372893) 2.2 mg/dL 2.5-5.0 L Lab Interpretation (test code = Abnormal 85299-0) [facility] HospitalLIPID PANEL (58250)(TOTAL CHOLESTEROL, TRIGLYCERIDES, HDL)2020-09-29 06:56:06 Test Item Value Reference Range Interpretation Comments CHOL (test code = 132 mg/dL 120-200 9161937282) HDL (test code = 41 mg/dL >50 L 6930976872) HDLC RATIO (test code = See_Comment [Au tomated message] 6065389689) The system Zookal generated this result transmit josemanuel reference range : <=4.5. The refe rence range was not u sed to interpret th is result as normal/abnormal . TRIG (test code = 73 mg/dL 30-170 1863663734) LDL CHOL (test code = 76 mg/dL See_Comment [Auto mated message] 97506-2) The system Zook[employer] generated this result transmit josemanuel reference range : <=160. The refe rence range was not u sed to interpret th is result as normal/abnormal . VLDL (test code = 15 mg/dL 5-60 5431741970) Lab Interpretation (test Abnormal code = 47458-0) [facility] HospitalCOVID-19 (ID NOW RAPID TESTING)2020-09-29 06:24:26 Test Item Value Reference Range Interpretation Comments SARS-CoV-2 Rapid ID NOW Not Detected Not Detected (test code = 38068-9) SONW (test code = SNOW) ID NOW COVID-19 Assay is an isothermal nucleic acid amplification test intended for the qualitative detection of nucleic acid from SARS-CoV-2 viral RNA in nasopharyngeal (MALTSTER) specimens. It is used under Emergency Use [...] indicated. Lab Interpretation Normal (test code = 04795-5) [facility] HospitalURINALYSIS2021-06-21 04:43:31 Test Item Value Reference Range Interpretation Comments APPEARANCE (test code = Clear Clear 4453794471) COLOR (test code = Rosanne Yellow A 9681146281) PH (test code = 4.8-8.0 6915830015) SP GRAVITY (test code = 1.003-1.030 2647960123) GLU U QUAL (test code = Normal Normal 5039750862) BLOOD (test code = Negative Negative 3867607981) KETONES (test code = Negative Negative 8676595153) PROTEIN (test code = 30 mg/dL Negative A 2887-8) UROBILIN (test code = Normal Normal 0202720239) BILIRUBIN (test code = Negative Negative 9358476528) NITRITE (test code = Negative Negative 8609713400) LEUK RANULFO (test code = 25/uL Negative A 9958292286) RBC/HPF (test code = See_Comment [Autom ated message] 3420627826) The system Zookal generated this result transmitted ref erence range: 0 - 3 HP F. The reference range was not used to int erpret this result as normal/abnormal . WBC/HPF (test code = See_Comment [Autom ated message] 2798369378) The system whic h generated this result transmitted ref erence range: 0 - 5 HP F. The reference range was not used to int erpret this result as normal/abnormal . BACTERIA (test code = Few Negative A 0696448494) MUCOUS (test code = Moderate Negative LPF A 1695875016) SQ EPITH (test code = HPF 7655760166) Lab Interpretation (test Abnormal code = 46095-5) [facility] WITH [id number] 04:39:35 Test Item Value Reference Range Interpretation [...] (test code = 51.3 fL 39.0-49.9 H 50360-2) RDW-CV (test code = 18.1 % 12.0-15.5 H 788-0) PLT (test code = See_Comment L [Automated 777-3) message] The system which generated this result transmit josemanuel reference range : 166 - 358 10*3/ ?L. The reference range was not u sed to interpret th is result as normal/abnormal . MPV (test code = 11.1 fL 9.5-12.9 65209-2) IPF % (test code = 3.7 % 1.3-7.7 Platelet count 9075859256) measured by fluorescence method. NRBC/100 WBC (test See_Comment [Automat ed code = 3789418599) message] The system which generated this result transmit josemanuel reference range : 0.0 - 10.0 /100 WBCs. The reference range was not used to interpret this result as normal/abnormal . NRBC x10^3 (test code <0.01 See_Comment [Auto mated = 9270496736) message] The system which generated this result transmit josemanuel reference range : 10*3/?L. The reference range was not used to interpret this result as normal/abnormal . GRAN MAT (NEUT) % 76.4 % (test code = 770-8) IMM GRAN % (test code 0.80 % = 8730992324) LYMPH % (test code = 9.4 % 736-9) MONO % (test code = 11.3 % 5905-5) EOS % (test code = 1.5 % 713-8) BASO % (test code = 0.6 % 706-2) GRAN MAT x10^3(ANC) 4.07 10*3/uL 1.88-7.09 (test code = 5051940350) IMM GRAN x10^3 (test 0.04 10*3/uL 0.00-0.06 code = 4576422743) LYMPH x10^3 (test 0.50 10*3/uL 1.32-3.29 L code = 731-0) MONO x10^3 (test code 0.60 10*3/uL 0.33-0.92 = 742-7) EOS x10^3 (test code 0.08 10*3/uL 0.03-0.39 = 711-2) BASO x10^3 (test code 0.03 10*3/uL 0.01-0.07 = 704-7) PLT ESTIMATE (test Decreased Normal A code = 9317-9) SNOW (test code = SNOW) Juan slide adgrees to decreased Platelet Lab Interpretation Abnormal (test code = 81168-9) [facility]. METABOLIC PANEL (08547)2020-09-29 04:25:42 Test Item Value Reference Range Interpretation Comments NA (test code = 134 mmol/L 135-145 L 3400182168) K (test code = 3.2 mmol/L 3.5-5.0 L 0500699979) CL (test code = 104 mmol/L 98-108 3127253926) CO2 TOTAL (test code = 24 mmol/L 23-31 5221952381) AGAP (test code = 2-16 3274738716) BUN (test code = 8 mg/dL 7-23 3459709133) GLUCOSE (test code = 105 mg/dL 70-110 2698012957) CREATININE (test code = 0.51 mg/dL 0.50-1.04 3911832941) TOTAL BILI (test code = 2.5 mg/dL 0.1-1.1 H 7689796227) CALCIUM (test code = 8.2 mg/dL 8.6-10.6 L 8328137699) T PROTEIN (test code = 6.3 g/dL 6.3-8.2 2380635915) ALBUMIN (test code = 3.1 g/dL 3.5-5.0 L 0020745998) ALK PHOS (test code = 136 U/L 34-122 H 1381447950) ALTv (test code = 24 U/L 5-35 1742-6) AST(SGOT) (test code = 30 U/L 13-40 7229791688) eGFR (test code = mL/min/1.73m2 6797349514) SNOW (test code = SNOW) Association of [...] tests). 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 employed in a healthcare setting (test code = 01900-1) Whether the patient has symptoms related to condition of interest (test code = 28620-3) Patient was hospitalized because of this condition (test code = 92772-2) Whether the patient was admitted to intensive care unit (ICU) for condition of interest (test code = 65913-5) Whether patient resides in a congregate care setting (test code = 61202-4) SARS-CoV-2 (COVID-19) RNA [Presence] in Respiratory specimen by HELENA with probe [id number] 02:47:43 Test Item Value Reference Range Interpretation Comments SARS-CoV-2 (COVID-19) RNA Not detected Not-Detected [Presence] in Respiratory specimen by HELENA with probe detection (test code = 84881-5) SARS-CoV-2 (COVID-19) RNA [Presence] in Respiratory specimen by HELENA with probe [id number] 16:32:37 Test Item Value Reference Range Interpretation Comments SARS-CoV-2 (COVID-19) RNA Not detected Not-Detected [Presence] in Respiratory specimen by HELENA with probe detection (test code = 26887-1) SARS-CoV-2 (COVID-19) RNA [Presence] in Respiratory specimen by HELENA with probe [id number] 05:29:57 Test Item Value Reference Range Interpretation Comments SARS-CoV-2 (COVID-19) RNA Not detected Not-Detected [Presence] in Respiratory specimen by HELENA with probe detection (test code = 68317-1) CT ABDOMEN PELVIS W [id number] 19:27:49 1. ?No evidence of small bowel [...] on the priorstudy.PreliminaryReport Dictated by Resident: Vilma Ortez, Frandy Rodriguez MD., have reviewed this study and agree with the abovereport.[facility] WITH [id number] 11:56:00 Test Item Value Reference Range Interpretation [...] (test code = 58.0 fL 39-49.9 H 65848-4) RDW-CV (test code = 16.6 % 12-15.5 H 788-0) PLT (test code = See_Comment LL [Automated 777-3) message] The sy stem which generated this result transmitted reference range : 166 - 358 10*3/ ?L. The reference r davi was not used to interpret this result as normal/abnormal . MPV (test code = 11.0 fL 9.5-12.9 81166-7) IPF % (test code = 5.5 % 1.3-7.7 Platelet count 7926009108) measured by fluorescence method. NRBC/100 WBC (test See_Comment [Automat ed code = 2501391504) message] The system which generated this result transmitted reference range : 0.0 - 10.0 /100 WBCs. The refer ence range was not u sed to interpret th is result as normal/abnormal . NRBC x10^3 (test code <0.01 See_Comment [Auto mated = 6027782844) message] The s ystem which generated this result transmitted reference range : 10*3/?L. The reference range was not used to interpret this result as normal/abnormal . GRAN MAT (NEUT) % 57.6 % (test code = 770-8) IMM GRAN % (test code 0.00 % = 4089376374) LYMPH % (test code = 27.1 % 736-9) MONO % (test code = 11.8 % 5905-5) EOS % (test code = 3.1 % 713-8) BASO % (test code = 0.4 % 706-2) GRAN MAT x10^3(ANC) 1.47 10*3/uL 1.88-7.09 L (test code = 5460461985) IMM GRAN x10^3 (test <0.03 0-0.06 code = 9606219118) LYMPH x10^3 (test code 0.69 10*3/uL 1.32-3.29 L = 731-0) MONO x10^3 (test code 0.30 10*3/uL 0.33-0.92 L = 742-7) EOS x10^3 (test code = 0.08 10*3/uL 0.03-0.39 711-2) BASO x10^3 (test code <0.03 0.01-0.07 = 704-7) Lab Interpretation Abnormal (test code = 12571-0) [facility]OL[facility] (79280)2019-08-11 10:42:00 Test Item Value Reference Range Interpretation Comments NA (test code = 138 mmol/L 135-145 8906432783) K (test code = 3.8 mmol/L 3.5-5 8222769548) CL (test code = 108 mmol/L 98-108 2190203486) CO2 TOTAL (test code = 24 mmol/L 23-31 0222486401) AGAP (test code = 2-16 1961330406) BUN (test code = 10 mg/dL 7-23 8291446449) GLUCOSE (test code = 108 mg/dL 70-110 8155780394) CREATININE (test code = 0.43 mg/dL 0.5-1.04 L 1917633575) TOTAL BILI (test code = 2.5 mg/dL 0.1-1.1 H 3123476923) CALCIUM (test code = 8.4 mg/dL 8.6-10.6 L 9206636454) T PROTEIN (test code = 6.1 g/dL 6.3-8.2 L 7821468012) ALBUMIN (test code = 3.1 g/dL 3.5-5 L 7180539669) ALK PHOS (test code = 102 U/L 34-122 8816388391) ALTv (test code = 52 U/L 5-35 H 1742-6) AST(SGOT) (test code = 63 U/L 13-40 H 6716980037) eGFR Calculation mL/min/1.73m2 (Non-) (test code = 6737792344) eGFR Calculation mL/min/1.73m2 () (test code = 4724109909) SNOW (test code = SNOW) Association of [...] tests). Lab Interpretation Abnormal (test code = 96301-9) [facility] HospitalXR SMALL BOWEL [id number] 02:08:11 1. ?No bowel obstruction. No fluoroscopic images or fluoroscopic time. RL 6200 HISTORY: ?Abdominal pain COMPARISON: ?None FINDINGS: There is a nonobstructive bowel gas pattern. Contrast is seen throughoutthe entire small bowel and colon. Nodilated loops of bowel demonstrated. [facility], Radiant Results Inft User - 08/10/2019 9:09 PM CDTHISTORY: Abdominal painCOMPARISON: NoneFINDINGS:There is a nonobstructive bowel gas pattern. Contrast is seen throughoutthe entire small bowel and colon. No dilated loops of bowel demonstrated.IMPRESSION1.No bowel obstruction.No fluoroscopic images or fluoroscopic time.RL 6200 [facility] CenterSEDIMENTATION [id number] 16:19:00 Test Item Value Reference Range Interpretation Comments ESR (test code = See_Comment [Automated message] 2392162233) The system [employer] generated this result transmitted ref erence range: 0 - 20 m m/HR. The reference r davi was not used to interpret this result as normal/abnor mal. Lab Interpretation (test Normal code = 25159-3) [facility] HospitalAbdominal 1 View - To confirm nasogastric [...] reviewed this study and agree with the abovereport.[facility] WITH [id number] 13:48:00 Test Item Value Reference Range Interpretation Comments WBC (test code = See_Comment L [Automated 8290-2) message] The system which generated this result transmit josemanuel reference range : 4.30 - 11.10 10*3/?L. The reference range was not used to interpret this result as normal/abnormal . RBC (test code = See_Comment L [Automated 859-8) message] The system which generated this result [...] (test code = 58.4 fL 39-49.9 H 23540-6) RDW-CV (test code = 16.7 % 12-15.5 H 788-0) PLT (test code = See_Comment LL [Automated 777-3) message] The system which generated this result transmit josemanuel reference range : 166 - 358 10*3/ ?L. The reference range was not u sed to interpret th is result as normal/abnormal . MPV (test code = 10.5 fL 9.5-12.9 60195-4) IPF % (test code = 3.0 % 1.3-7.7 Platelet count 4269725364) measured by fluorescence method. NRBC/100 WBC (test See_Comment [Automat ed code = 7895194438) message] The system which generated this result transmit josemanuel reference range : 0.0 - 10.0 /100 WBCs. The reference range was not used to interpret this result as normal/abnormal . NRBC x10^3 (test code <0.01 See_Comment [Auto mated = 0765172180) message] The system which generated this result transmit josemanuel reference range : 10*3/?L. The reference range was not used to interpret this result as normal/abnormal . GRAN MAT (NEUT) % 57.1 % (test code = 770-8) IMM GRAN % (test code 0.40 % = 0689089975) LYMPH % (test code = 28.1 % 736-9) MONO % (test code = 10.4 % 5905-5) EOS % (test code = 3.6 % 713-8) BASO % (test code = 0.4 % 706-2) GRAN MAT x10^3(ANC) 1.42 10*3/uL 1.88-7.09 L (test code = 4739010750) IMM GRAN x10^3 (test <0.03 0-0.06 code = 4291990452) LYMPH x10^3 (test 0.70 10*3/uL 1.32-3.29 L code = 731-0) MONO x10^3 (test code 0.26 10*3/uL 0.33-0.92 L = 742-7) EOS x10^3 (test code 0.09 10*3/uL 0.03-0.39 = 711-2) BASO x10^3 (test code <0.03 0.01-0.07 = 704-7) PLT ESTIMATE (test Critically Normal AA code = 9317-9) Decreased Lab Interpretation Abnormal (test code = 79701-3) [facility] HospitalGLYCOSYLATED HEMOGLOBIN (A1C)2019-08-10 13:13:00 Test Item Value [...] Indicated Lab Interpretation Normal (test code = 10517-1) [facility] HospitalTHYROID STIMULATING [id number] 13:05:00 Test Item Value Reference Range Interpretation Comments TSH (test code = See_Comment [Automated message] 8454077435) The system [employer] generated this result transmitted ref erence range: 0.45 - 4 .70 mIU/L. The refe rence range was not u sed to interpret this result as normal/abnor mal. Lab Interpretation (test Normal code = 27160-5) [facility] HospitalPREGNANCY TEST, [id number] 13:04:00 Test Item Value Reference Range Interpretation Comments PREG SERUM (test code Negative = 1067645391) SNOW (test code = SNOW) Less than 10 IU/L. ?If low titer or ectopic is suspected, resubmit specimen in 48-72 hours. [facility] HospitalLIPID PANEL (11098)(TOTAL CHOLESTEROL, TRIGLYCERIDES, HDL)2019-08-10 12:36:00 Test Item Value Reference Range Interpretation Comments CHOL (test code = 158 mg/dL 120-200 9562554031) HDL (test code = 47 mg/dL >50 L 4341811290) HDLC RATIO (test code = See_Comment [Au tomated message] 5711368389) The system [employer] generated this result transmit josemanuel reference range : <=4.5. The refe rence range was not u sed to interpret th is result as normal/abnormal . TRIG (test code = 51 mg/dL 30-170 3952382386) LDL CHOL (test code = 101 mg/dL See_Comment [Auto mated message] 72625-8) The system [employer] generated this result transmit josemanuel reference range : <=160. The refe rence range was not u sed to interpret th is result as normal/abnormal . VLDL (test code = 10 mg/dL 5-60 5973309856) Lab Interpretation (test Abnormal code = 94731-4) [facility]. METABOLIC PANEL (78851)2019-08-10 12:35:00 Test Item Value Reference Range Interpretation Comments NA (test code = 139 mmol/L 135-145 4530696771) K (test code = 3.9 mmol/L 3.5-5 9331696003) CL (test code = 109 mmol/L 98-108 H 6297936915) CO2 TOTAL (test code = 25 mmol/L 23-31 7871313492) AGAP (test code = 2-16 1049786249) BUN (test code = 15 mg/dL 7-23 3391644598) GLUCOSE (test code = 218 mg/dL 70-110 H 3958660158) CREATININE (test code = 0.40 mg/dL 0.5-1.04 L 3765479084) TOTAL BILI (test code = 2.0 mg/dL 0.1-1.1 H 1189123948) CALCIUM (test code = 8.5 mg/dL 8.6-10.6 L 0090595166) T PROTEIN (test code = 6.2 g/dL 6.3-8.2 L 4429380681) ALBUMIN (test code = 3.1 g/dL 3.5-5 L 4171089479) ALK PHOS (test code = 99 U/L 34-122 2733690054) ALTv (test code = 42 U/L 5-35 H 1742-6) AST(SGOT) (test code = 49 U/L 13-40 H 9585007861) eGFR Calculation mL/min/1.73m2 (Non-) (test code = 7933275158) eGFR Calculation mL/min/1.73m2 () (test code = 0839655398) SNOW (test code = SNOW) Association of [...] tests). Lab Interpretation Abnormal (test code = 49115-8) [facility] HospitalMAGNESIUM2020-05-01 12:35:00 Test Item Value Reference Range Interpretation Comments MAGNESIUM (test code = 2560449970) 1.6 mg/dL 1.7-2.4 L Lab Interpretation (test code = Abnormal 53997-8) [facility] HospitalPHOSPHORUS2020-05-01 12:35:00 Test Item Value Reference Range Interpretation Comments PHOSPHORUS (test code = 3435090363) 3.6 mg/dL 2.5-5 Lab Interpretation (test code = Normal 10239-0) [facility] HospitalCREATINE [id number] 12:35:00 Test Item Value Reference Range Interpretation Comments CK (test code = 1065320323) 123 U/L 33-194 Lab Interpretation (test code = Normal 09702-6) [facility] HospitalLIPASE2020-05-01 12:35:00 Test Item Value Reference Range Interpretation Comments LIPASE (test code = 6161006559) 141 U/L 0-220 Lab Interpretation (test code = Normal 76092-5) [facility] HospitalAMYLASE2020-05-01 12:34:00 Test Item Value Reference Range Interpretation Comments LIN (test code = 8821934718) 73 U/L 35-110 Lab Interpretation (test code = Normal 77798-8) [facility] HospitalPROTHROMBIN TIME / [id number] 12:07:00 Test Item Value Reference Range Interpretation Comments PROTIME PATIENT (test See_Comment H [Auto mated message] code = 5964-2) The system [employer] generated this result transmitted ref erence range: 12.0 - 1 4.7 Seconds. The reference range was not used to int erpret this result as normal/abnormal . INR (test code = 6301-6) Nor mal INR <1.1; Warfarin Therap eutic range 2.0 to 3. 0 or 2.5 to 3.5, dep ending upon the indica tions. Lab Interpretation (test Abnormal code = 25117-7) [facility] HospitalCORONAVIRUS COVID-19 [id number] 10:18:00 Test Item Value Reference Range Interpretation Comments SARS-CoV-2 (test code = Not Detected Not Detected 92051-5) SNOW (test code = SNOW) ID NOW COVID-19 Assay is an isothermal nucleic acid amplification test intended for the qualitative detection of nucleic acid from SARS-CoV-2 viral RNA in nasopharyngeal (MALTSTER) specimens. It is used under Emergency Use [...] indicated. Lab Interpretation Normal (test code = 94872-9) [facility] HospitalRAD, CHEST, 1 VIEW, NON [id number] 07:50:00Reason for exam:->SOBShould this be performed at the bedside?->Yes FINAL REPORT CLINICAL HISTORY: SOB TECHNIQUE: 1 view of the chest. COMPARISON: None IMPRESSION: There is pulmonary vascular congestion with prominent lung markings bilaterally. Subpulmonic pleural effusions cannot be excluded. The cardiomediastinal silhouette is magnified by technique. Signed: Franky Louis MDReport Verified Date/Time: 10/03/2018 07:50:47 Reading Location: [facility] Radiology Reading Room [id number] 07:37:00 Test Item Value Reference Range Interpretation Comments MAGNESIUM (BEAKER) (test code = 1.6 mg/dL 1.6-2.6 627) BASIC METABOLIC [id number] 07:37:00 Test Item Value Reference Range Interpretation [...] DIALYSIS PATIEN TS. Specimen slightly ictericHEPATIC FUNCTION [id number] 07:37:00 Test Item Value Reference Range Interpretation [...] 35 U/L 6-55 347) Specimen slightly ictericPROTHROMBIN TIME/[id number] 06:25:00 Test Item Value Reference Range Interpretation [...] mechanical heart valves.CBC W/PLT COUNT & AUTO [id number] 06:16:00 Test Item Value Reference Range Interpretation [...] = 3438) Received comment: User comments: Slide comments:[id number] 05:58:00 Test Item Value Reference Range Interpretation Comments MAGNESIUM (BEAKER) (test code = 1.6 mg/dL 1.6-2.6 627) BASIC METABOLIC [id number] 05:58:00 Test Item Value Reference Range Interpretation [...] DIALYSIS PATIEN TS. Specimen slightly ictericHEPATIC FUNCTION [id number] 05:58:00 Test Item Value Reference Range Interpretation [...] 39 U/L 6-55 347) Specimen slightly ictericPROTHROMBIN TIME/[id number] 05:26:00 Test Item Value Reference Range Interpretation [...] mechanical heart valves.CBC W/PLT COUNT & AUTO [id number] 05:20:00 Test Item Value Reference Range Interpretation [...] WBC 0-0 (test code = 413) VITAMIN [id number] 06:57:00 Test Item Value Reference Range Interpretation Comments VITAMIN B12 (BEAKER) (test code = 178 pg/mL 213-816 L 774) [id number] 06:57:00 Test Item Value Reference Range Interpretation Comments FERRITIN (BEAKER) (test code = 361) 21 ng/mL 5-275 FOLATE, [id number] 06:57:00 Test Item Value Reference Range Interpretation [...] 28 % 20-55 (test code = 2590) [id number] 05:59:00 Test Item Value Reference Range Interpretation Comments MAGNESIUM (BEAKER) (test code = 1.7 mg/dL 1.6-2.6 627) BASIC METABOLIC [id number] 05:59:00 Test Item Value Reference Range Interpretation [...] FOR DIALYSIS PATIEN TS. Specimen slightly ictericLIPID [id number] 05:59:00 Test Item Value Reference Range Interpretation [...] Very High >=190 Specimen slightly ictericHEPATIC FUNCTION [id number] 05:59:00 Test Item Value Reference Range Interpretation [...] = 41 U/L 6-55 347) Specimen slightly [id number] 05:59:00 Test Item Value Reference Range Interpretation Comments LIPASE (BEAKER) (test code = 749) 35 U/L 8-78 Specimen slightly ictericPROTHROMBIN TIME/[id number] 05:58:00 Test Item Value Reference Range Interpretation [...] mechanical heart valves.CBC W/PLT COUNT & AUTO [id number] 05:37:00 Test Item Value Reference Range Interpretation [...] PERCENT (BEAKER) (test code = 2801) POCT-HEMOGLOBIN [id number] 06:12:00 Test Item Value Reference Range Interpretation Comments POC-HEMOGLOBIN METER 8.6 g/dL 12.0-15.[address] [facility] 67[address] (BEAKER) (test code = [place] [address] 1539)"
--- NOTE | 2021-04-08 12:12 | RAD REPORT ---
EXAM DESCRIPTION: RAD - Knee Right 3 View - 04/08/2021 12:03 pm CLINICAL HISTORY: PAIN COMPARISON: Knee Right 3 View dated 08/28/2019 FINDINGS: No fracture, dislocation or periosteal reaction.No joint effusion seen. No joint space rene rowing. Prominent soft tissues around the knee but no air, foreign body or calcification in the soft tissues. IMPRESSION: Negative right knee. No significant change from the August 2019 study. Clinical concerns for internal derangement or occult bony injury could be further assessed with MR im aging.
--- NOTE | 2021-04-08 12:48 | RAD REPORT ---
EXAM DESCRIPTION: CT - Knee Right Wo Cont - 04/08/2021 12:27 pm CLINICAL HISTORY: pain, unable to bear weight Pain and swelling COMPARISON: Knee Right 3 View dated 04/08/2021 FINDINGS: The bones are mildly demineralized. There is thin lucency seen in the lateral pole of the patella suspicious for nondisplaced patella fra cture. Trace joint effusion. Additional fracture, dislocation or aggressive pattern. No soft tissue mass or hematoma. IMPRESSION: Thin, nondisplaced fracture of the lateral pole of the patella. All CT scans are performed using dose optimization technique as appropriate and may include automated exposure control or mA/KV adjustment according to patient size.
--- NOTE | 2021-04-08 13:48 | EDPHYS ---
Physician Documentation [facility] Name: Zenaida Goss Age: 60 yrs Sex: Female : 1960 Arrival Date: 04/08/2021 Time: 09:52 Bed Waiting Private MD: Madhu Albarado R ED Physician Lenny Enrique HPI: 04/08 11:05 This 60 yrs old Female presents to ER via Wheelchair with complaints of Knee cp Pain - right. 11:05 The patient presents with twisting injury to right knee after losing balance. cp 11:05 The complaints affect the medial aspect of right knee and right knee. Onset: The cp symptoms/episode began/occurred 5 day(s) ago. Modifying factors: the symptoms are aggravated by weight bearing, bending knee. Associated signs and symptoms: Pertinent positives: swelling, Pertinent negatives calf tenderness, numbness, warmth. Treatment prior to arrival includes: no previous treatment. Severity of symptoms: in the emergency department the symptoms are unchanged, despite home interventions. Historical: - Allergies: 11:01 Dilaudid; vg1 11:01 Morphine (Anaphylaxis); vg1 - Home Meds: 11:01 Lactulose Oral once daily [Active]; vg1 - PMHx: 11:01 Anemia; breast cancer; Cirrhosis; fatty liver; Pancreatitis; varices; vg1 - PSHx: 11:01 Appendectomy; Cholecystectomy; Lumpectomy of breast; Total abdominal hysterectomy; vg1 - Immunization history:: Client reports receiving the 2nd dose of the Covid vaccine. - Social history:: Smoking status: Patient denies any tobacco usage or history of. ROS: 11:10 MS/extremity: Positive for pain, swelling, tenderness, of the right knee, Negative for cp decreased range of motion, deformity, paresthesias. 11:10 Eyes: Negative for injury, pain, redness, and discharge. cp 11:10 Constitutional: Negative for body aches, chills, fever, poor PO intake. 11:10 Cardiovascular: Negative for chest pain, palpitations. 11:10 Respiratory: Negative for cough, shortness of breath, wheezing. 11:10 Abdomen/GI: Negative for abdominal pain, nausea, vomiting, and diarrhea. 11:10 Neuro: Negative for altered mental status, headache, weakness. 11:10 All other systems are negative. Exam: 11:15 Constitutional: The patient appears in no acute distress, alert, awake, cp non-diaphoretic, non-toxic, well developed, well nourished, obese. 11:15 Head/Face: Normocephalic, atraumatic. cp 11:15 Cardiovascular: Rate: normal. 11:15 Respiratory: the patient does not display signs of respiratory distress, Respirations: normal, no use of accessory muscles, no retractions, labored breathing, is not present. 11:15 Abdomen/GI: Exam negative for discomfort, distension, guarding, Inspection: abdomen appears normal. 11:15 Back: pain, is absent, ROM is normal. 11:15 Musculoskeletal/extremity: Extremities: noted in the right knee and medial aspect of right knee: pain, tenderness, mild swelling, ROM: limited passive range of motion due to pain, in the right knee, Perfusion: the extremity is normally perfused throughout, Severe pain noted. Vital Signs: 10:59 BP 132 / 60; Pulse 72; Resp 16; Temp 97.8; Pulse Ox 100% ; Weight 115.67 kg; Height 5 vg1 ft. 4 in. (162.56 cm); Pain 9/10; 10:59 Body Mass Index 43.77 (115.67 kg, 162.56 cm) vg1 MDM: 13:45 Data reviewed: vital signs, nurses notes, radiologic studies, CT scan, plain films. cp 13:45 Test interpretation: by ED physician or midlevel provider: plain radiologic studies. cp Counseling: I had a detailed discussion with the patient and/or guardian regarding: the historical points, exam findings, and any diagnostic results supporting the discharge/admit diagnosis, lab results, radiology results, the need for outpatient follow up, for definitive care, a orthopedic surgeon, to return to the emergency department if symptoms worsen or persist or if there are any questions or concerns that arise at home. Response to treatment: the patient's symptoms have markedly improved after treatment, and as a result, I will discharge patient. 13:47 Patient medically screened. cp 04/08 11:02 Order name: Knee Right 3 View XRAY; Complete Time: 13:25 vg1 04/08 12:17 Order name: Knee Right Wo Cont; Complete Time: 13:25 EDMS 04/08 12:11 Order name: Knee Immobilizer; Complete Time: 15:22 cp Administered Medications: 15:23 CANCELLED (Physician Discretion): traMADol 50 mg PO once; RASS on ADMIN: Combtv4, Very vg1 Agttd3, Agttd2, Rstlss1, AlertClm0, Drwsy-1, Lt Sdtn-2, Mod Sdtn-3, Dp Sdtn-4, UnArsble-5 15:29 Drug: Ondansetron 4 mg Route: PO; vg1 15:29 Follow up: Response: Medication administered at discharge. vg1 15:29 Drug: [place] (HYDROcodone-acetaminophen) 10 mg-325 mg 1 tabs Route: PO; vg1 15:29 Follow up: Response: Medication administered at discharge. vg1 Disposition Summary: 04/08/21 13:47 Discharge Ordered Location: Home cp Problem: new cp Symptoms: have improved cp Condition: Stable cp Diagnosis - Fracture of patella - right cp Followup: cp - With: Pierre Fuchs MD - When: 1 week - Reason: Recheck today's complaints Followup: cp - With: Gm Singh MD - When: 1 week - Reason: Recheck today's complaints Discharge Instructions: - Discharge Summary Sheet cp - Patellar Fracture, Adult cp Forms: - Medication Reconciliation Form cp - Thank You Letter cp - Antibiotic Education cp - Prescription Opioid Use cp Prescriptions: - Tylenol-Codeine #3 300 mg-30 mg Oral - take 2 tablet by ORAL route every 8-12 hours; 20 tablet; Refills: 0, Product cp Selection Permitted - Zofran 4 mg Oral Tablet - take 1 tablet by ORAL route every 12 hours As needed; 20 tablet; Refills: 0, cp Product Selection Permitted Addendum: 04/11/2021 08:57 Co-signature as Attending Physician, Lenny Enrique MD I agree with the assessment and k dr plan of care. Signatures: Dispatcher [employer] EDSC Lenny Enrique MD MD kdr Page, Corey, PA PA cp Garcia, Victoria RN RN vg1 Corrections: (The following items were deleted from the chart) 04/08 12:17 12:15 CT RIGHT KNEE WO CONTRAST ordered. EDSC EDMS 15:23 12:11 traMADol 50 mg PO once; RASS on ADMIN: Combtv4, Very Agttd3, Agttd2, Rstlss1, vg1 AlertClm0, Drwsy-1, Lt Sdtn-2, Mod Sdtn-3, Dp Sdtn-4, UnArsble-5 ordered. cp
--- NOTE | 2021-04-08 13:48 | ER ---
Nurse's Notes [facility] Name: Zenaida Goss Age: 60 yrs Sex: Female : 1960 Arrival Date: 04/08/2021 Time: 09:52 Bed Waiting Private MD: Madhu Albarado R Diagnosis: Fracture of patella-right Presentation: 04/08 10:59 Chief complaint: Patient states: Right knee pain since 04/03/21. States was about to vg1 fall and caught self with Right leg and twisted Right knee. Coronavirus screen: Vaccine status: Patient reports receiving the 2nd dose of the covid vaccine. Client denies travel out of the [place] in the last 14 days. At this time, the client does not indicate any symptoms associated with coronavirus-19. Ebola Screen: Patient negative for fever greater than or equal to 101.5 degrees Fahrenheit, and additional compatible Ebola Virus Disease symptoms. Initial Sepsis Screen: Does the patient meet any 2 criteria? No. Patient's initial sepsis screen is negative. Does the patient have a suspected source of infection? No. Patient's initial sepsis screen is negative. Risk Assessment: Do you want to hurt yourself or someone else? Patient reports no desire to harm self or others. Onset of symptoms was April 03, 2021. 10:59 Method Of Arrival: Wheelchair vg1 10:59 Acuity: TANK 4 vg1 Triage Assessment: 11:01 General: Appears in no apparent distress. uncomfortable, Behavior is calm, cooperative. vg1 Pain: Complains of pain in right knee Pain currently is 9 out of 10 on a pain scale. Historical: - Allergies: 11:01 Dilaudid; vg1 11:01 Morphine (Anaphylaxis); vg1 - Home Meds: 11:01 Lactulose Oral once daily [Active]; vg1 - PMHx: 11:01 Anemia; breast cancer; Cirrhosis; fatty liver; Pancreatitis; varices; vg1 - PSHx: 11:01 Appendectomy; Cholecystectomy; Lumpectomy of breast; Total abdominal hysterectomy; vg1 - Immunization history:: Client reports receiving the 2nd dose of the Covid vaccine. - Social history:: Smoking status: Patient denies any tobacco usage or history of. Assessment: 15:22 Reassessment: Patient appears in no apparent distress at this time. No changes from vg1 previously documented assessment. Patient and/or family updated on plan of care and expected duration. Pain level reassessed. Patient is alert, oriented x 3, equal unlabored respirations, skin warm/dry/pink. Vital Signs: 10:59 BP 132 / 60; Pulse 72; Resp 16; Temp 97.8; Pulse Ox 100% ; Weight 115.67 kg; Height 5 vg1 ft. 4 in. (162.56 cm); Pain 9/10; 10:59 Body Mass Index 43.77 (115.67 kg, 162.56 cm) vg1 ED Course: 09:52 Patient arrived in ED. am2 09:52 Madhu Albarado MD is Private Physician. am2 11:01 Triage completed. vg1 11:01 Arm band placed on. vg1 11:13 Homero Jackson PA is PHCP. cp 11:13 Lenny Enrique MD is Attending Physician. cp 12:04 Knee Right 3 View XRAY In Process Unspecified. EDMS 12:27 Knee Right Wo Cont In Process Unspecified. EDMS 13:46 Pierre Fuchs MD is Referral Physician. cp 15:17 Referral Physician role handed off by Pierre Fuchs MD cp 15:17 Gm Singh MD is Referral Physician. cp Administered Medications: 15:23 CANCELLED (Physician Discretion): traMADol 50 mg PO once; RASS on ADMIN: Combtv4, Very vg1 Agttd3, Agttd2, Rstlss1, AlertClm0, Drwsy-1, Lt Sdtn-2, Mod Sdtn-3, Dp Sdtn-4, UnArsble-5 15:29 Drug: Ondansetron 4 mg Route: PO; vg1 15:29 Follow up: Response: Medication administered at discharge. vg1 15:29 Drug: Ayr (HYDROcodone-acetaminophen) 10 mg-325 mg 1 tabs Route: PO; vg1 15:29 Follow up: Response: Medication administered at discharge. vg1 Outcome: 13:47 Discharge ordered by MD. cp 15:32 Patient left the ED. vg1 Signatures: Dispatcher [employer] EDMS Homero Jackson PA PA cp Rere Guerrero am2 Sarah Gao RN RN vg1
[2021-04-08 15:35] VITALS: BP 132/60; TEMP 97.8; O2SAT 100
== END 2021-04-08 15:32 | disposition home or self-care (01) ==
LOC: ER 09:50
DX: S82.001A Unspecified fracture of right patella, initial encounter for closed fracture (principal); W18.30XA Fall on same level, unspecified, initial encounter; Y93.9 Activity, unspecified
CPT/HCPCS: 73700; 99283

== ENCOUNTER → 2021-04-08 | Emergency (ER) | payer OTHER ==
[2011-10-02 05:12] VITALS: BP 114/75
[~2021-04-08] MED LIST: HYDROCODONE/APAP 10/325 TAB ONE; ONDANSETRON 4 MG (ODT) TAB ONE
--- OUTSIDE RECORDS SUMMARY | 2021-04-08 03:30 | XMS REPORT | Continuity of Care Document ---
:1960 Author Organization [facility] t Address [address] [place] [address] Care Team Providers Name Role Phone Ruth HENSLEY, R Primary Care Physician [facility] Attending Clinician Unavailable IBIKUNLE, F Attending Clinician Unavailable Ibikdannale ETL DEVELOPER, F Attending Clinician Nancy REYES Attending Clinician Unavailable NETTIE Attending Clinician Unavailable Only, Db Test Attending Clinician Unavailable Unknown Attending Clinician Unavailable Doctor Unassigned, Name Attending Clinician Unavailable JAIME Attending Clinician Unavailable Sami CARLOS Attending Clinician Unavailable SYLVIA Attending Clinician Unavailable Claudia REYES, M Attending Clinician Deshawn Evans MD Attending Clinician Millie HENSLEY Attending Clinician MANUELITO Attending Clinician Unavailable MD MANUELITO Attending Clinician Unavailable Kyrie GERMAN Attending Clinician Unavailable SHERIDAN THOMAS MD Attending Clinician Unavailable MD CECE SANDOVAL Attending Clinician Unavailable Lab, Fam Pob I Attending Clinician Unavailable Kamaljit GARCIA, A Attending Clinician Nasrin REYES, A Attending Clinician Unavailable MILLIE Attending Clinician Unavailable SHAYY DAVEY Attending Clinician Unavailable JUIDT ESCALONA Attending Clinician Unavailable SHERIDAN THOMAS Admitting [...] Number Effective Date Expiration Date Deshawn blancas [facility] [id number] 2019 CHOICE 00:00:00 Problems Condition Condition Condition Status Onset Resolution Last Treating Co mments Source Name Details Category Date Date Treatment Clinician Date Pancolitis Pancolitis Disease Active U nivers 6-21 ity of 00:00: [place] [facility] Arrhythmia Arrhythmia Disease Active U nivers 6- ity of 00:00: [place] [facility] Ventricula Ventricula Disease Active U nivers r r 6- ity of tachycardi tachycardi [place] Other Other Disease Active Univers cirrhosis cirrhosis - ity of of liver of liver 00:00: [place] 00 Medical Branch ANAYA ANAYA Disease Active Univers (nonalcoho (nonalcoho - it y of lic lic 00:00: [place] steatohepa steatohepa 00 Me dical titis) titis) Branch Hypokalemi Hypokalemi Disease Active U nivers a a 6-21 ity of 00:00: [place] 00 Medical Branch Acute Acute Disease Active Univers colitis colitis 6-21 ity of 00:00: [place] 00 Medical Branch SBO (small SBO (small Disease Active U nivers bowel bowel 5- ity of obstructio obstructio [place]) n) 00 [facility] Intractabl Intractabl Disease Active U nivers e nausea e nausea 5-01 ity of and and 00:00: [place] vomiting vomiting 00 Medica l Branch Morbid Morbid Disease Active Univers obesity obesity 4-29 ity of with body with body 00:[place] mass index mass index 00 Me dical of of Branch 40.0-49.9 40.0-49.9 Morbid Morbid Disease Active Univers obesity obesity 08-07 ity of with body with body 00:00[place] mass index mass index 00 Me dical of 50 or of 50 or Branch higher higher Nausea & Nausea & Disease Active Unive rs vomiting vomiting 08-07 ity of 00:00: [place] [facility] Primary Primary Diagnosis Active [facility] [...] INGREDI 09-30 ity of 00:00: [place] 00 [facility] MORPHINE DRUG Active High Anaphylaxis Uni vers INGREDI 06-30 ity of 00:00: [place] 00 Medical Branch Morphine Propensi Active Swelling Throat Univ ers ty to 06-30 closes, ity of adverse 00:00: tongue [place] reaction 00 swelling [facility] MORPHINE Adverse Active Info Not [facility] Reaction Available [facility] Social History Social Habit Start Date Stop Date Quantity Comments Source Exposure to Not sure [facility] SARS-CoV-2 [facility] (event) [place] Branch Alcohol intake 2021-04-02 2021-04-02 Ex-drinker [facility] 00:00:00 00:00:00 (finding) [facility] Tobacco use and 2016-08-07 2016-08-07 Never used Universit y of exposure 00:00:00 00:00:00 [facility] Sex Ass[birth year] At [birth year] Universit y of 00:00:00 00:00:00 [facility] Smoking Status Start Date Stop Date Source Never smoker [facility] Medications Ordered Filled Start Stop Current Ordering Indication Dosage Frequency Signature Comments Components Source Medication Medication Date Date Medication? Clinician (SIG) Name Name dexamethaso 2021-1 2021- No 10mg 10 mg, Uni vers ne - 12-23 Oral, ity of (DECADRON 20:45: 20:05 ONCE, 1 [place] PHOSPHATE) 00 :00 dose, On Medic al injection [place]ine Branch 10 mg 04/02/21 at 1445, Routine ketorolac 2020-04- No 30mg 30 mg, Unive rs (TORADOL) - 12- Intramuscu ity of injection 20:45: 20:05 lar, ONCE, [place] 30 mg 00 :00 1 dose, On Medical [place]ine Branch 04/02/21 at 1445, VERN ondansetron 2020-04 Yes [id number] 4mg Take 1 Univers 4 mg 2-23 tablet by ity of disintegrat 00:00: mouth [place] ing tablet 00 every 8 Medica l (eight) Branch hours as needed for Nausea and Vomiting (N/V). ondansetron 2020-04 Yes [id number] 4mg Take 1 Univers 4 mg 2-23 tablet by ity of disintegrat 00:00: mouth [place] ing tablet 00 every 8 Medica l (eight) Branch hours as needed for Nausea and Vomiting (N/V). cholecalcif 2020- No [id number] 1999U Take 2 Univers nuno, 6-26 07-27 tablets by ity of vitamin D3, 00:00: 04:59 [place] 25 mcg 00 :00 daily for Medical (1,000 30 days. Branch unit) tablet cyanocobala 2020- No [id number] 1000ug inject 1 Univers min 1,000 6-26 07-27 mL under ity o f mcg/mL 00:00: 04:59 the skin [place] injection 00 :00 every 24 Medica l (twenty-fo Branch ur) hours for 30 days. KCL 20 mEq 2020- No [id number] 20meq Take 1 Univers tablet 6-26 07-27 tablet by ity of 00:00: 04:59 mouth [place] 00 :00 daily for Medical 30 days. Branch cholecalcif 2020- No [id number] 1999U Take 2 Univers nuno, 6-26 07-27 tablets by ity of vitamin D3, 00:00: 04:59 mouth [place] 25 mcg 00 :00 daily for Medical (1,000 30 days. Branch unit) tablet cyanocobala 2020- No [id number] 1000ug inject 1 Univers min 1,000 6-26 07-27 mL under ity o f mcg/mL 00:00: 04:59 the skin [place] injection 00 :00 every 24 Medica l (twenty-fo Branch ur) hours for 30 days. KCL 20 mEq 2020- No [id number] 20meq Take 1 Univers tablet 6- 07-27 tablet by ity of 00:00: 04:59 mouth [place] 00 :00 daily for Medical 30 days. Branch lactulose Yes 30mL Take 30 mL Un marline 10 gram/15 6-25 by mouth ity o f mL oral 18:10: daily. [place] solution 25 Medical Branch pantoprazol Yes 40mg Take 40 mg Univers e 6-25 by mouth ity of (PROTONIX) 18:10: daily. [place] 40 mg EC 25 Medical tablet Branch lactulose Yes 30mL Take 30 mL Un marline 10 gram/15 6-25 by mouth ity o f mL oral 18:10: daily. [place] solution 25 Medical Branch pantoprazol Yes 40mg Take 40 mg Univers e 6-25 by mouth ity of (PROTONIX) 18:10: daily. [place] 40 mg EC 25 Medical tablet Branch lipase/prot 2020- No Take by U nivers ease/amylas 6-25 06-25 mouth. ity o f e (CREON 10 16:09: 00:00 [place] ORAL) 48 :00 Medical Branch furosemide 2020- No 40mg Take 40 mg Univers (LASIX) 40 6-25 06-25 by mouth ity of mg tablet 16:09: 00:00 every [place] 48 :00 morning Medical and Branch evening. lactulose Yes 30mL Take 30 mL Un marline 10 gram/15 6-25 by mouth ity o f mL oral 13:10: daily. [place] solution 25 Medical Branch pantoprazol Yes 40mg Take 40 mg Univers e 6-25 by mouth ity of (PROTONIX) 13:10: daily. [place] 40 mg EC 25 Medical tablet Branch lactulose Yes 30mL Take 30 mL Un marline 10 gram/15 6-25 by mouth ity o f mL oral 13:10: daily. [place] solution 25 Medical Branch pantoprazol Yes 40mg Take 40 mg Univers e 6-25 by mouth ity of (PROTONIX) 13:10: daily. [place] 40 mg EC 25 Medical tablet Branch lactulose Yes 30mL Take 30 mL Un marline 10 gram/15 6-25 by mouth ity o f mL oral 13:10: daily. [place] solution 25 Medical Branch pantoprazol Yes 40mg Take 40 mg Univers e 6-25 by mouth ity of (PROTONIX) 13:10: daily. [place] 40 mg EC 25 Medical tablet Branch lactulose Yes 30mL Take 30 mL Un marline 10 gram/15 6-25 by mouth ity o f mL oral 13:10: daily. [place] solution 25 Medical Branch pantoprazol Yes 40mg Take 40 mg Univers e 6-25 by mouth ity of (PROTONIX) 13:10: daily. [place] 40 mg EC 25 Medical tablet Branch lactulose Yes 30mL Take 30 mL Un marline 10 gram/15 6-25 by mouth ity o f mL oral 13:10: daily. [place] solution 25 Medical Branch pantoprazol [...] unresponsi ve to Ondansetro n proMETHazin Yes [id number] 12.5mg Take 1 Univers e 12.5 mg 6-25 tablet by ity o f tablet 00:00: mouth [place] 00 every 6 Medical (six) Branch hours as needed for Nausea and Vomiting (N/V) or N/V unresponsi ve to Ondansetro n. proMETHazin Yes [id number] 12.5mg Take 1 Univers e 12.5 mg 6-25 tablet by ity o f tablet 00:00: mouth [place] 00 every 6 Medical (six) Branch hours as needed for Nausea and Vomiting (N/V) or N/V unresponsi ve to Ondansetro n. proMETHazin Yes [id number] 12.5mg Take 1 Univers e 12.5 mg 6-25 tablet by ity o f tablet 00:00: mouth [place] 00 every 6 Medical (six) Branch hours as needed for Nausea and Vomiting (N/V) or N/V unresponsi ve to Ondansetro n. proMETHazin Yes [id number] 12.5mg Take 1 Univers e 12.5 mg 6-25 tablet by ity o f tablet 00:00: mouth [place] 00 every 6 Medical (six) Branch hours as needed for Nausea and Vomiting (N/V) or N/V unresponsi ve to Ondansetro n. proMETHazin Yes [id number] 12.5mg Take 1 Univers e 12.5 mg 6-25 tablet by ity o f tablet 00:00: mouth [place] 00 every 6 Medical (six) Branch hours as needed for Nausea and Vomiting (N/V) or N/V unresponsi ve to Ondansetro n. proMETHazin Yes [id number] 12.5mg Take 1 Univers e 12.5 mg 6-25 tablet by ity o f tablet 00:00: mouth [place] 00 every 6 Medical (six) Branch hours as needed for Nausea and Vomiting (N/V) or N/V unresponsi ve to Ondansetro n. proMETHazin Yes [id number] 12.5mg Take 1 Univers e 12.5 mg 6-25 tablet by ity o f tablet 00:00: mouth [place] 00 every 6 Medical (six) Branch hours as needed for Nausea and Vomiting (N/V) or N/V unresponsi ve to Ondansetro n. furosemide 2020- No [id number] 40mg Take 1 Univers 40 mg 6-25 07-26 tablet by ity of tablet 00:00: 04:59 mouth [place] 00 :00 every Medical morning Branch and evening for 30 days. lipase-prot 2020- No [id number] 2{capsu Take 2 Univers ease-amylas 6-25 07-26 le} capsules ity of e 00:00: 04:59 by mouth 3 [place] 12,000-38,0 00 :00 (three) Medic al 00 -60,000 times Branch unit daily with capsule meals for 30 days. lactobacill 2020- No [id number] .5mg Take 1 Univers us 6-25 07-26 tablet by ity of acidophilus 00:00: 04:59 mouth 2 [place] 00 :00 (two) Medical times Branch daily for 30 days. furosemide 2020- No [id number] 40mg Take 1 Univers 40 mg 6-25 07-26 tablet by ity of tablet 00:00: 04:59 mouth [place] 00 :00 every Medical morning Branch and evening for 30 days. lipase-prot 2020- No [id number] 2{capsu Take 2 Univers ease-amylas 6-25 07-26 le} capsules ity of e 00:00: 04:59 by mouth 3 [place] 12,000-38,0 00 :00 (three) Medic al 00 -60,000 times Branch unit daily with capsule meals for 30 days. lactobacill 2020- No [id number] .5mg Take 1 Univers us 6-25 07-26 tablet by ity of acidophilus 00:00: 04:59 mouth 2 [place] 00 :00 (two) Medical times Branch daily for 30 days. vancomycin 2020- No [id number] 125mg Take 1 Univers 125 mg 6-25 07-06 capsule by ity of capsule 00:00: 04:59 mouth 4 [place] 00 :00 (four) Medical times Branch daily for 10 days. vancomycin 2020- No [id number] 125mg Take 1 Univers 125 mg 6-25 07-06 capsule by ity of capsule 00:00: 04:59 [...] [id number] 1{tbl} Take 1 U nivers -acetaminop 10-03 tablet by it y of hen 5-325 00:00: 04:59 mouth [place] mg tablet 00 :00 every 6 Medical (six) Branch hours as needed for Pain (scale 7-10) for up to 7 days. Indication s: acute pain cephALEXin 2020- No [id number] 500mg Take 1 Univers 500 mg 10-03 capsule by ity of capsule 00:00: 04:59 mouth 4 [place] 00 :00 (four) Medical times Branch daily for 5 days. cephALEXin 2020- No [id number] 500mg Take 1 Univers 500 mg 10-03 capsule by ity of capsule 00:00: 04:59 mouth 4 [place] 00 :00 (four) Medical times Branch daily for 5 days. meperidine Yes 25mg 25 mg, Unive rs (DEMEROL) 10-02 Intramuscu ity of injection 22:11: lar, [place] 25 mg 15 Q6HPRN, Medical Starting Branch Geraldine 10/02/20 at 1711, Until Discontinu ed, Routine, Pain (scale 7-10)
E nter indication for use: Anaphylact ic allergies to all other opioid formulatio ns
Facu lty member approving Restricted medication : MATT PELAYO ipratropium Yes 3mL 3 mL, Unive rs -albuteroL 10-01 Inhalation ity of (DUONEB) 14:51: , Q6HPRN, [place] 0.5 mg-3 59 Starting Medical mg(2.5 mg Tue Branch base)/3 mL 10/01/20 at nebulizer 0951, solution 3 Until mL Discontinu ed, Routine, Wheezing furosemide Yes 40mg 40 mg, Unive rs (LASIX) 10-01 Oral, ity of tablet 40 14:00: QAM+PM, [place] mg 00 First dose Medical on Tue Branch 10/01/20 at 0900, Until Discontinu ed, Routine iron 2020- No 300mg 300 mg, IV Unive rs sucrose 09-30-24 Infusion, ity of (VENOFER) 21:30: 20:00 DAILY, [place] 300 mg in 00 :55 First dose Medi molly NaCl 0.9% on Tue Branch (NS) 250 mL 09/30/20 at infusion 1630, For 4 doses vancomycin Yes 125mg 125 mg, Uni vers (VANCOCIN) 09-30 Oral, QID, ity of capsule 125 21:15: First dose [place] mg 00 on Tue Medical 09/30/20 at Branch 1615, Until Discontinu ed, VERN
Fa culty member approving Non-formul mary medication : TOMASA ESCAMILLA
R kelvin for non-formul mary use: SPECIFIC INDICATION FOR NONFORMULA RY PRODUCT
Reason for Anti-Infec tive: Documented Infection< br>Docu mented Infection Site: Abdominal< br>Duratio n of Therapy: 7 days proMETHazin 2020- No 12.5mg 12.5 mg, Univers e 09-3024 IV ity of (PHENERGAN) 17:11: 19:59 Piggyback, [place] 12.5 mg in 58 :55 Q4HPRN, Medica l NaCl 0.9% Starting Branch (NS) 50 mL Tue IV 09/30/20 at piggyback 1211, Until Geraldine 10/02/20 at 1459, Routine, Nausea and Vomiting (N/V) meperidine 2020- No 50mg 50 mg, Univ ers (DEMEROL) 09-3024 Slow IV ity of injection 17:11: 20:00 Push, [place] 50 mg 15 :07 Q4HPRN, Medical Starting Branch 09/30/20 at 1211, Until Geraldine 10/02/20 at 1500, Routine, Pain (scale 7-10)
E nter indication for use: Anaphylact ic allergies to all other opioid formulatio ns
Facu lty member approving Restricted medication : TOMASA ESCAMILLA cyanocobala Yes 1000ug 1,000 mcg, Univers min 09-30 Subcutaneo ity of (VITAMIN 14:45: us, Q24H, [place] B12) 00 First dose Medical injection on Tue Branch 1,000 mcg 09/30/20 at 0945, Until Discontinu ed, Routine zolpidem Yes 2.5mg 2.5 mg, Unive rs (AMBIEN) 09-30 Oral, ity of tablet 2.5 03:51: QHSPRN, [place] mg 57 Starting Medical [facility] Branch 09/29/20 at 2251, Until Discontinu ed, Routine, Insomnia D5W 0.45% 2020- No IV Univers NaCl 09-29 Infusion, ity of (1/2NS) 1 L 21:00: 21:15 at 100 [place] + KCL 20 00 :40 mL/hr, Medical mEq CONTINUOUS Branch , Starting [facility] 09/29/20 at 1600, Until Tue09/30/20 at 1615, Routine cholecalcif Yes 2000U 2,000 [facility] [facility] ers nuno 09-29 Units, ity of (vitamin 20:00: Oral, [place] D3) tablet 00 DAILY, Medical 2,000 Units First dose Br anch on [facility] 09/29/20 at 1500, Until Discontinu ed, Routine lactobacill Yes .5mg 0.5 mg, Uni vers us 09-29 Oral, BID, ity of acidophilus 14:15: First dose [place] tablet 0.5 00 on [facility] Medical mg 09/29/20 at Branch 0915, Until Discontinu ed, Routine KCL Yes 20meq 20 mEq, Univers (KLOR-CON 09-29 Oral, ity of M20) tablet 14:00: DAILY, [place] 20 mEq 00 First dose Medical (after Branch last reorder) on [facility] 09/29/20 at 0900, Until Discontinu ed, Routine lipase-prot Yes 2{capsu 2 capsule, Univers ease-amylas 09-29 le} Oral, TID ity of e (CREON) 08:45: MEALS, [place] 12,000-38,0 00 First dose Me dical 00 -60,000 on [facility] Branch unit 09/29/20 at capsule 2 0345, capsule Until Discontinu ed, Routine FENTanyl PF 0 2020- No 50ug 50 mcg, Un marline (SUBLIMAZE 09-29 Slow IV ity o f (PF)) 08:40: 17:13 Push, [place] injection 42 :17 Q4HPRN, Medical 50 mcg Starting Branch Tue09/29/20 at 0340, Until Tue09/30/20 at 1213, Routine, Pain (scale 7-10) piperacilli 2020-2020- No 3.375g 3.375 g, Univers n-tazobacta 09-29 IV ity of m (ZOSYN) 07:45: 21:11 Piggyback, [place] 3.375 g in 00 :52 Q8H ABX, Medic al NaCl 0.9% First dose Bran ch (NS) 100 mL (after MINI-BAG last reorder) on Tue09/29/20 at 0245, Until Discontinu ed, 100 mL
Reas on for Anti-Infec tive: Documented Infection< br>Documen josemanuel Infection Site: Abdominal< br>Duratio n of Therapy: Other (see Comments) NaCl 0.9% 2020- No 1000mL at 100 Uni vers (NS) IV 09-29 mL/hr, IV ity of infusion 07:45: 19:49 Infusion, [place] 1,000 mL 00 :12 CONTINUOUS Medic al , Starting Branch Tue09/29/20 at 0245, Until Tue09/29/20 at 1449, Routine NaCl 0.9% 2020- No 2000mL at 999 Uni vers (NS) IV 09-29 mL/hr, ity of infusion 07:45: 09:04 Intravenou [place] 2,000 mL 00 :00 s, ONCE, 1 Medic al dose, [facility] 09/29/20 at 0245, Routine FENTanyl PF 2020- No 50ug 50 mcg, Un marline (SUBLIMAZE 09-29 Slow IV ity o f (PF)) 07:30: 06:27 Push, [place] injection 00 :00 ONCE, 1 Medical 50 mcg dose, [facility] 09/29/20 at 0230, Routine piperacilli 2020-2020- No 3.375g 3.375 g, Univers n-tazobacta 09-29 IV ity of m (ZOSYN) 07:30: 07:00 Piggyback, [place] 3.375 g in 00 :00 ONCE, 1 Medica l NaCl 0.9% dose, [facility] Branc h (NS) 100 mL 09/29/20 at MINI-BAG 0230, 100 mL
Reas on for Anti-Infec tive: Documented Infection< br>Documen josemanuel Infection Site: Abdominal< br>Duratio n of Therapy: Other (see Comments) pantoprazol No 40mg 40 mg, IV Univers e 09-29 Piggyback, ity of (PROTONIX) 06:45: 21:11 Q12H, [place] 40 mg in 00 :56 First dose Medic al NaCl 0.9% on Tue Branch (NS) 100 mL 09/29/20 at MINI-BAG [...] injection 4 17 Starting Medi molly mg [facility] Branch 09/29/20 at 0142, Until Discontinu ed, Routine, Nausea and Vomiting (N/V) iopamidol 2020- No [id number] 100mL 100 mL, Univers (ISOVUE 09-29 Intravenou [...] 09/29/20 at Branch 0045, VERN FENTanyl PF 2020- No 50ug 50 mcg, Un marline (SUBLIMAZE 09-29 Slow IV ity o f (PF)) 05:45: 05:14 Push, [place] injection 00 :00 ONCE, 1 Medical 50 mcg dose, Mon Branch 09/29/20 at 0045, Routine NaCl 0.9% 2020- No 1000mL at 999 Uni vers (NS) IV 09-29 mL/hr, ity of infusion 05:45: 06:38 Intravenou [place] 1,000 mL 00 :45 s, Medical CONTINUOUS Branch , Starting 09/29/20 at 0045, Until Tue09/29/20 at 0138, Routine Meloxicam Meloxicam 2020- No Gm [address] [facility] [address] 09-17 07- [facility] flu vaccine 2020- No .5mL 0.5 mL, Un marline 6 months 08-10 Intramuscu ity of and up 20:51: 20:54 lar, ONCE, [place] (FLUZONE 00 :00 1 dose, Medical QUAD 08/11/19 Branch at 1600, (PF)) Routine syringe 0.5 mL lactulose 2019- No 30mL Take 30 mL U nivers 10 gram/15 08-10 by mouth 2 it y of mL oral 19:53: 00:00 (two) [place] solution 33 :00 times Medical daily. Branch iohexol 0 2020- No 120mL 120 mL, Unive rs (OMNIPAQUE 08-10 Intravenou it y of 350 15:00: 14:46 s, ONCE, 1 [place] BULK-100 00 :00 dose, Sat Medica l mL) 08/11/19 at Branch injection 1000, 120 mL Routine ondansetron 2019- Yes 4mg 4 mg, Slow Univers (ZOFRAN 08-10 IV Push, ity of (PF)) 03:30: Q4HPRN, [place] injection 4 00 Starting Medi molly mg 08/10/19 Branch at 2230, Until Discontinu ed, Routine, Nausea and Vomiting (N/V) acetaminoph 2020-0 Yes 1{tbl} Take 1 Univers [...] for Pain (scale 4-6). acetaminoph 2020-0 Yes [id number] 1{tbl} Take 1 Univers en-codeine 5-02 tablet by ity of 300-30 mg 00:00: mouth [place] tablet 00 every 4 Medical (four) Branch hours as needed for Pain (scale 4-6). acetaminoph 2020-0 Yes [id number] 1{tbl} Take 1 Univers en-codeine 5-02 tablet by ity of 300-30 mg 00:00: mouth [place] tablet 00 every 4 Medical (four) Branch hours as needed for Pain (scale 4-6). acetaminoph 2020-0 Yes [id number] 1{tbl} Take 1 Univers en-codeine 5-02 tablet by ity of 300-30 mg 00:00: mouth [place] tablet 00 every 4 Medical (four) Branch hours as needed for Pain (scale 4-6). lactulose 2019-0 2020- No [id number] 30mL Take 30 mL Univers 10 gram/15 5-05 17-02 by mouth 2 it y of mL oral 00:00: 04:59 (two) [place] solution 00 :00 times Medical daily for Branch 30 days. pantoprazol 2019-0 2020- No [id number] 40mg Take 1 Univers e 40 mg EC 5-05 17- tablet by ity of tablet 00:00: 04:59 mouth [place] 00 :00 daily for Medical 30 days. Branch lactulose 2019-0 2020- No [id number] 30mL Take 30 mL Univers 10 gram/15 5-02 06-02 by mouth 2 it y of mL oral 00:00: 04:59 (two) [place] solution 00 :00 times Medical daily for Branch 30 days. pantoprazol 2019-0 2020- No [id number] 40mg Take 1 Univers e 40 mg EC 5- 06-02 tablet by ity of tablet 00:00: 04:59 mouth [place] 00 :00 daily for Medical 30 days. Branch propranolol 2019-0 2020- No [id number] 10mg Take 1 Univers 10 mg 5- 05- tablet by ity of tablet 00:00: 00:00 mouth 2 [place] 00 :00 (two) Medical times Branch daily for 30 days. ibuprofen 2020-0 Yes 600mg 600 mg, Univ ers (IBU) 5- Oral, ity of tablet 600 20:57: Q6HPRN, [place] mg 31 Starting Medical Tue08/10/19 Branch at 1557, Until Discontinu ed, Routine, Pain (scale 1-3) enoxaparin 2019-0 Yes 40mg 40 mg, Unive rs (LOVENOX) 08-09 Subcutaneo ity of injection 14:00: [place], DAILY, [place] 40 mg 00 First dose Medical on Tue Branch 08/10/19 at 0900, Until Discontinu ed, Routine pantoprazol 2019-0 Yes 40mg 40 mg, IV U nivers e 08-09 Piggyback, ity of (PROTONIX) 13:00: Q12H, [place] 40 mg in 00 First dose Medic al NaCl 0.9% on Tue Branch (NS) 100 mL 08/10/19 at MINI-BAG 0800, Until Discontinu ed, 100 mL LORazepam 2020- No .25mg 0.25 mg, Un marline (ATIVAN) 08-09 Slow IV ity of injection 11:00: 11:00 Push, [place] 0.25 mg 00 :00 ONCE, 1 Medical dose, Tue Branch 08/10/19 at 0600, Routine D5W-LR IV 2019-0 Yes 1000mL at 100 Univ ers infusion 5-01 mL/hr, IV ity of 1,000 mL 10:30: Infusion, [place] 00 CONTINUOUS Medical , Starting Branch Tue08/10/19 at 0530, Until Discontinu ed, Routine FENTanyl PF 2019-0 Yes 50ug 50 mcg, Uni vers (SUBLIMAZE 08-09 Slow IV ity of (PF)) 09:22: Push, [place] injection 46 Q4HPRN, Medical 50 mcg Starting Branch Tue08/10/19 at 0422, Until Discontinu ed, Routine, Pain (scale 4-6) ondansetron 2020- No 4mg 4 mg, Slow [...] as needed for Pain (scale 4-6). cyclobenzap 2019- No 10mg Take 1 Uni vers rine 10 mg 09-26 tablet by ity of tablet 00:00: 00:00 mouth 3 [place] 00 :00 (three) Medical times Branch daily. traMADOL 2016-04- No 50mg Take 1 Univer s (ULTRAM) 50 04-26 tablet by it y of mg tablet 00:00: 00:00 mouth [place] 00 :00 every 6 Medical (six) Branch hours as needed for Pain (scale 4-6). hydrocortis 2016-04- No 25mg Insert 1 U nivers one 04-26 Suppositor ity of (ANUSOL-HC) 00:00: 00:00 y into [place] 25 mg 00 :00 rectum 2 Medical suppository (two) Branch times daily. hydrocortis 2016-04- No Insert Uni vers one 04-26 into ity of (ANUSOL-HC) 00:00: 00:00 rectum 2 [place] 2.5 % 00 :00 (two) Medical rectal times Branch cream daily. Oseltamivir Oseltamivir Yes [facility]m not [facility] [...] [facility] defined [facility] Acetaminoph Acetaminoph Yes Gm not [facility] en-Codeine en-Codeine Singh defined [place] - #3 #[facility] Immunizations Ordered Filled Immunization Date Status Comments Sourc e Immunization Name Name Pneumococcal 2020-10-03 Completed University o f Polysaccharide, 00:00:00 [place] Med ical PPSV23 (PNEUMOVAX) Branch Pneumococcal 2020-10-03 Completed University o f Polysaccharide, 00:00:00 [place] Med ical PPSV23 (PNEUMOVAX) Branch Pneumococcal 2020-10-03 Completed University o f Polysaccharide, 00:00:00 [place] Med ical PPSV23 (PNEUMOVAX) Branch Pneumococcal 2020-10-03 Completed University o f Polysaccharide, 00:00:00 [place] Med ical PPSV23 (PNEUMOVAX) Branch Pneumococcal 2020-10-03 Completed University o f Polysaccharide, 00:00:00 [place] Med ical PPSV23 (PNEUMOVAX) Branch Pneumococcal 2020-10-03 Completed University o f Polysaccharide, 00:00:00 [place] Med ical PPSV23 (PNEUMOVAX) Branch Pneumococcal 2020-10-03 Completed University o f Polysaccharide, 00:00:00 [place] Med ical PPSV23 (PNEUMOVAX) Branch SARS-COV-2 COVID-19 2020-08-08 Completed Unive rsity of MODERNA VACCINE 00:00:00 [place] [facility] SARS-COV-2 COVID-19 2020-08-08 Completed Unive rsity of MODERNA VACCINE 00:00:00 [facility] ical Branch SARS-COV-2 COVID-19 2020-08-08 Completed Unive rsity of MODERNA VACCINE 00:00:00 [facility] ical Branch SARS-COV-2 COVID-19 2020-08-08 Completed Unive rsity of MODERNA VACCINE 00:00:00 [facility] ical Branch SARS-COV-2 COVID-19 2020-08-08 Completed Unive rsity of MODERNA VACCINE 00:00:00 [facility] ical Branch SARS-COV-2 COVID-19 2020-08-08 Completed Unive rsity of MODERNA VACCINE 00:00:00 [facility] ical Branch SARS-COV-2 COVID-19 2020-08-08 Completed Unive rsity of MODERNA VACCINE 00:00:00 [facility] SARS-COV-2 COVID-19 2020-08-08 Completed Unive rsity of MODERNA VACCINE 00:00:00 [facility] SARS-COV-2 COVID-19 2020-07-11 Completed Unive rsity of MODERNA VACCINE 00:00:00 [facility] SARS-COV-2 COVID-19 2020-07-11 Completed Unive rsity of MODERNA VACCINE 00:00:00 [facility] SARS-COV-2 COVID-19 2020-07-11 Completed Unive rsity of MODERNA VACCINE 00:00:00 [facility] SARS-COV-2 COVID-19 2020-07-11 Completed Unive rsity of MODERNA VACCINE 00:00:00 [facility] SARS-COV-2 COVID-19 2020-07-11 Completed Unive rsity of MODERNA VACCINE 00:00:00 [facility] SARS-COV-2 COVID-19 2020-07-11 Completed Unive rsity of MODERNA VACCINE 00:00:00 [facility] SARS-COV-2 COVID-19 2020-07-11 Completed Unive rsity of MODERNA VACCINE 00:00:00 [facility] SARS-COV-2 COVID-19 2020-07-11 Completed Unive rsity of MODERNA VACCINE 00:00:00 [facility] Influenza Virus 2019-08-11 Completed Universit y of Vaccine Quad .5 mL 00:00:00 [facility] IM 6+ MO Branch Influenza Virus 2019-08-11 Completed Universit y of Vaccine Quad .5 mL 00:00:00 [facility] IM 6+ MO Branch Influenza Virus 2019-08-11 Completed Universit y of Vaccine Quad .5 mL 00:00:00 [facility] IM 6+ MO Branch Influenza Virus 2019-08-11 Completed Universit y of Vaccine Quad .5 mL 00:00:00 [facility] IM 6+ MO Branch Influenza Virus 2019-08-11 Completed Universit y of Vaccine Quad .5 mL 00:00:00 [facility] IM 6+ MO Branch Influenza Virus 2019-08-11 Completed Universit y of Vaccine Quad .5 mL 00:00:00 [facility] IM 6+ MO Branch Influenza Virus 2019-08-11 Completed Universit y of Vaccine Quad .5 mL 00:00:00 [facility] IM 6+ MO Branch Influenza Virus 2019-08-11 Completed Universit y of Vaccine Quad .5 mL 00:00:00 [facility] IM 6+ MO Branch Influenza Virus 2019-08-11 Completed Universit y of Vaccine Quad .5 mL 00:00:00 [facility] IM 6+ MO Branch Influenza Virus 2019-08-11 Completed Universit y of Vaccine Quad .5 mL 00:00:00 [facility] IM 6+ MO Branch Influenza Virus 2019-08-11 Completed Universit y of Vaccine Quad .5 mL 00:00:00 [facility] IM 6+ MO Branch Vital Signs Vital Name Observation Time Observation Value Comments Source Systolic blood 2021-04-02 18:55:00 138 mm[Hg] Univer sity of pressure [facility] Diastolic blood 2021-04-02 18:55:00 104 mm[Hg] Unive rsity of pressure [facility] Heart rate 2021-04-02 18:55:00 74 /min [facility] Body temperature 2021-04-02 18:55:00 36.78 [facility] Respiratory rate 2021-04-02 18:55:00 18 /min [facility] Body weight 2021-04-02 18:55:00 122.471 kg [facility] BMI 2021-04-02 18:55:00 46.35 kg/m2 [facility] Oxygen saturation in 2021-04-02 18:55:00 97 /min [facility] Arterial blood by [facility] Pulse oximetry Branch Systolic blood 2020-10-03 17:23:00 132 mm[Hg] Univer sity of pressure [facility] Diastolic blood 2020-10-03 17:23:00 56 mm[Hg] Unive rsity of pressure [facility] Heart rate 2020-10-03 17:23:00 88 /min [facility] Body temperature 2020-10-03 17:23:00 36.94 Sandee [facility] Respiratory rate 2020-10-03 17:23:00 18 /min [facility] Oxygen saturation in 2020-10-03 17:23:00 94 /min [facility] Arterial blood by [facility] Pulse oximetry Branch Body weight 2020-09-30 08:11:00 121.473 kg [facility] BMI 2020-09-30 08:11:00 47.44 kg/m2 [facility] Body height 2020-09-29 03:33:00 160 cm [facility] Diastolic blood 2019-08-11 20:04:00 44 mm[Hg] Unive rsity of pressure [facility] Heart rate 2019-08-11 20:04:00 70 /min [facility] Body temperature 2019-08-11 20:04:00 36.61 Sandee Univ ersity of [facility] Branch Respiratory rate 2019-08-11 20:04:00 18 /min Univ ersity of [facility] Oxygen saturation in 2019-08-11 20:04:00 91 /min [facility] of Arterial blood by [facility] Pulse oximetry Branch Systolic blood 2019-08-11 20:04:00 107 mm[Hg] Univer sity of [facility] Body height 2019-08-10 08:01:00 162.6 cm [facility] Body weight 2019-08-10 08:01:00 119.296 kg [facility] BMI 2019-08-10 08:01:00 45.14 kg/m2 [facility] Diastolic blood 2019-08-11 20:04:00 44 mm[Hg] Unive rsity of pressure [facility] Heart rate 2019-08-11 20:04:00 70 /min [facility] Body temperature 2019-08-11 20:04:00 36.61 Sandee Univ ersity of [facility] Respiratory rate 2019-08-11 20:04:00 18 /min Univ ersity of [facility] Oxygen saturation in 2019-08-11 20:04:00 91 /min University of Arterial blood by [facility] Pulse oximetry Branch Systolic blood 2019-08-11 20:04:00 107 mm[Hg] Univer sity of pressure [facility] [place] [facility] Body height 2019-08-10 08:01:00 162.6 cm [facility] Body weight 2019-08-10 08:01:00 119.296 kg [facility] BMI 2019-08-10 08:01:00 45.14 kg/m2 [facility] Procedures Procedure Date / Time Performing Clinician Source Performed XR KNEE 3 VW LEFT 2021-04-02 20:10:39 Azalea Henderson [facility] CONSENT/REFUSAL FOR 2021-04-02 17:59:31 Doctor Unassigned, [facility] DIAGNOSIS AND TREATMENT [facility] ASSIGNMENT OF BENEFITS 2021-03-10 20:29:46 Doctor Unassigned, [facility] PHOSPHORUS 2020-10-03 08:52:00 Brenda Teixeira [facility] MAGNESIUM 2020-10-03 08:52:00 [facility] COMP. METABOLIC PANEL 2020-10-03 08:52:00 [id number] CBC WITH DIFF 2020-10-03 08:52:00 Kim Teixeiraherine [facility] COMP. METABOLIC PANEL 2020-10-02 08:39:00 Brenda Teixeira [facility] ([id number]) [facility] CBC WITH DIFF 2020-10-02 08:39:00 Brenda Teixeira [facility] US DUPLEX VENOUS ARM LEFT 2020-10-01 16:22:58 Brenda Teixeira [facility] - BY VASCULAR LAB [facility] COMP. METABOLIC PANEL 2020-10-01 07:45:00 Tomasa Escamilla [facility] ([id number]) [facility] CBC WITH DIFF 2020-10-01 07:45:00 Alka Tomasa [facility] TROPONIN I 2020-09-30 10:56:00 Marco Levy [facility] COMP. METABOLIC PANEL 2020-09-30 10:56:00 Shaina Brito [facility] ([id number]) [facility] CBC WITH DIFF 2020-09-30 10:56:00 Shaina Brito [facility] N-TERMINAL PRO-BNP 2020-09-30 08:05:00 Shaina Brito [facility] OCCULT (GUAIAC) BLOOD 2020-09-30 02:10:00 Shaina Brito [facility] FECAL LEUKOCYTES 2020-09-30 02:10:00 Shaina Brito [facility] CLOSTRIDIUM DIFFICILE 2020-09-30 02:10:00 Millie sharad [facility] FECAL PATHOGENS BY PCR 2020-09-30 02:10:00 Shaina Brito [facility] POCT GLUCOSE (AUTOMATED) 2020-09-30 00:35:00 Rene Evans [facility] BASIC METABOLIC PANEL 2020-09-29 21:11:00 Shaina Brito [facility] (NA, K, CL, CO2, GLUCOSE, Medica l Branch BUN, CREATININE, CA) HEMOGLOBIN 2020-09-29 21:11:00 Alka Tomasa [facility] TRANSTHORACIC ECHO (TTE) 2020-09-29 16:03:00 Marco Levy [facility] HB ECG ROUTINE & RHYTHM 2020-09-29 11:18:58 Shaina Brito [facility] OSMOLALITY URINE 2020-09-29 08:56:00 Millie sharad [facility] URINE CULTURE 2020-09-29 08:56:00 Millie sharad [facility] SODIUM, URINE RANDOM 2020-09-29 08:56:[address] [facility] PROTEIN CREAT RATIO URINE 2020-09-29 08:56:00 Shaina Brito [facility] BLOOD CULTURE SCREEN 2020-09-29 08:32:[address] [facility] LACTIC ACID WHOLE BLOOD 2020-09-29 08:32:00 Shaina Brito [facility] VITAMIN B12, LEVEL 2020-09-29 08:31:00 Shaina Brito [facility] C-REACTIVE PROTEIN 2020-09-29 08:31:00 Millie sharad [facility] IRON PANEL 2020-09-29 08:31:00 Millie sharad [facility] SEDIMENTATION RATE 2020-09-29 08:31:00 Shaina Brito [facility] DIFF CONSULT 2020-09-29 08:31:00 Millie [facility] CBC WITH DIFF 2020-09-29 08:31:00 Millie [facility] PROTHROMBIN TIME / INR 2020-09-29 08:31:00 Millie sharad [facility] N-TERMINAL PRO-BNP 2020-09-29 08:31:00 Shaina Brito [facility] VITAMIN D, 25-OH 2020-09-29 08:31:00 Millie [facility] PROCALCITONIN 2020-09-29 08:31:00 Millie [facility] COVID-19 (ID NOW RAPID 2020-09-29 05:10:00 Rene Evans [facility] TESTING) Medical Branch LAB ONLY COVID 2020-09-29 05:10:00 Rene Evans [facility] INTERPRETATION [facility] CT ABDOMEN PELVIS W 2020-09-29 04:56:31 Rene Evans [facility] CONTRAST [facility] URINALYSIS 2020-09-29 04:19:00 Rene Evans [facility] PHOSPHORUS 2020-09-29 03:54:00 Millie [facility] CREATINE KINASE 2020-09-29 03:54:00 Millie [facility] URIC ACID 2020-09-29 03:54:00 Millie [facility] LIPASE 2020-09-29 03:54:00 Rene Evans [facility] MAGNESIUM 2020-09-29 03:54:00 Millie [facility] FERRITIN SERUM 2020-09-29 03:54:00 Millie [facility] TROPONIN I 2020-09-29 03:54:00 Marco Levy [facility] THYROID STIMULATING 2020-09-29 03:54:00 Shaina Brito [facility] HORMONE [facility] Branch COMP. METABOLIC PANEL 2020-09-29 03:54:00 Rene Evans [facility] ([id number]) Medical Branch LIPID PANEL (34753)(TOTAL 2020-09-29 03:54:00 Shaina Brito [facility] CHOLESTEROL, [facility] TRIGLYCERIDES, HDL) CBC WITH DIFF 2020-09-29 03:54:00 Rene Evans [facility] GLYCOSYLATED HEMOGLOBIN 2020-09-29 03:54:00 Millie sharad [facility] (A1C) [facility] N-TERMINAL PRO-BNP 2020-09-29 03:54:00 Shaina Brito [facility] CONSENT/REFUSAL FOR 2020-09-29 03:18:51 Doctor Unassigned, [facility] DIAGNOSIS AND TREATMENT [facility] NOTICE OF PRIVACY 2020-09-29 03:18:30 Doctor Unassigned, [facility] PRACTICES [facility] CT ABDOMEN PELVIS W 2019-08-11 14:50:46 Corby Ca [facility] CONTRAST [facility] COMP. METABOLIC PANEL 2019-08-11 08:00:00 Shaina Brito [facility] ([id number]) [facility] CBC WITH DIFFERENTIAL 2019-08-11 08:00:00 Shaina Brito [facility] CBC WITH DIFFERENTIAL 2019-08-11 08:00:00 Shaina Brito [facility] XR SMALL BOWEL SERIES 2019-08-10 21:18:47 Valente Piña [facility] XR ABDOMEN 1 VW 2019-08-10 11:52:39 Millie sharad [facility] PHOSPHORUS 2019-08-10 11:11:00 Millie [facility] CREATINE KINASE 2019-08-10 11:11:00 Millie sharad [facility] AMYLASE 2019-08-10 11:11:00 Millie [facility] LIPASE 2019-08-10 11:11:00 Shaina Brito [place] [facility] MAGNESIUM 2019-08-10 11:11:00 Shaina Brito [facility] TEST, SERUM 2019-08-10 11:11:00 Shaina Brito [facility] THYROID STIMULATING 2019-08-10 11:11:00 Shaina Brito [facility] HORMONE [facility] COMP. METABOLIC PANEL 2019-08-10 11:11:00 Shaina Brito [facility] ([id number]) [facility] LIPID PANEL (63416)(TOTAL 2019-08-10 11:11:00 Shaina Brito [facility] CHOLESTEROL, [facility] TRIGLYCERIDES, HDL) SEDIMENTATION RATE 2019-08-10 11:11:00 Shaina Brito [facility] CBC WITH DIFFERENTIAL 2019-08-10 11:11:00 Shaina Brito [facility] GLYCOSYLATED HEMOGLOBIN 2019-08-10 11:11:00 Shaina Brito [facility] (A1C) [facility] PROTHROMBIN TIME / INR 2019-08-10 11:11:00 Shaina Brito [facility] CORONAVIRUS COVID-19 2019-08-10 09:04:00 Shaina Brito [facility] TESTING [facility] Encounters Start End Encounter Admission Attending Care Care Encounter Source Date/Time Date/Time Type Type Clinicians Facility Department ID 2021-02-09 Emergency [facility] [id number] [facility] 2021-04-07 2021-04-07 Letter Orthopedic [facility] [id number] Univers 00:00:00 00:00:00 (Out) Clinic SPECIALTY [id number] ity of [facility] 4.2.7.2.[address] [facility] AT [id number] Dc pritesh PATINO [facility] [place] 2021-04-02 2021-04-02 Emergency X BEATRIZ OHSASHA ERT [id number] Univers 12:58:00 15:25:00 AZALEA [facility] 2021-04-02 2021-04-02 [facility] [id number] Univers 12:58:00 15:25:00 Azalea WHITT [id number] ity [facility] [id number] [place] [facility] [id number] [facility] 084 [place] [facility] 2021-03-11 2021-03-11 Telephone NancyVERONIQUE [id number] Univers 00:00:00 00:00:00 Frances GONZALO [id number] it y of [facility] [id number] Quang as [phone] [facility] 019 [place] Branch 2021-03-10 2021-03-10 [id number] Univers 14:45:00 14:51:40 LEXIE ity [facility] 2021-03-10 2021-03-10 Outpatient R [facility] [id number] Univers 14:45:00 14:45:00 [id number] ity [facility] 2021-03-10 2021-03-10 Laboratory Only, Ang Db Test [facility] 1.2.8 40.114 [id number] Univers 14:29:53 14:44:53 Only Unknown, Attending HEALTH [id number] ity [facility] 4.2.7.2.686 Quang as MARINA?BLEA [id number] [address] MEDICAL OFFICE BUILDING 2021-03-10 2021-03-10 Orders Doctor VERONIQUE [id number] Univers 00:00:00 00:00:00 Only Unassigned, GONZALO [id number] ity of [place] [facility] 4.2.7.2.686 Quang as [phone] [facility] 009 Branch 2021-02-18 2021-02-20 Inpatient JAIME, [facility] [id number] [place] 00:00:00 00:00:00 CHERI [address] 2021-02-03 2021-02-04 Emergency X [facility] ERT [id number] Univers 21:10:00 03:21:00 GARTH ity [facility] 2020-10-21 2020-10-27 Inpatient SYLVIA, [facility] [id number] [place] 00:00:00 00:00:00 ROBERTH 980 Method i 2020-10-06 2020-10-06 Transition Jocelyne Taylor 1.2.840.114 [id number] Univers 00:00:00 00:00:00 of Care Madiha Sotelo 350.1.13.10 i ty of [place]7.2.[place] [id number] [facility] 403 Branch 2020-09-28 2020-10-03 [facility] Rene Evans [facility] 1.2.840. 114 [id number] Univers 22:23:00 13:05:00 Encounter Shaina Brito 350.1.13.10 ity [place].7.2.686 [place] [id number] [facility] 081 Branch 2020-09-28 2020-09-28 Orders Doctor VERONIQUE 1.2.840.114 [id number] Univers 00:00:00 00:00:00 Only Unassigned, GONZALO 350.1.13.10 ity of [place] [facility] 4.2.7.2.686 Quang as [phone] [facility] 009 Branch 2020-09-09 2020-09-12 Inpatient VIKTOR BILLINGS [facility] [id number] [place] 00:00:00 00:00:00 462 Method i 2020-08-08 2020-08-08 Outpatient Sami GERMAN, [facility] [id number] Univers 15:40:00 15:40:00 TERRI ity [facility] 2020-07-11 2020-07-11 Outpatient [facility] [id number] Univers 15:40:00 15:40:00 ity [facility] 2020-06-09 2020-06-22 Inpatient MANUELITOVIKTOR [facility] [id number] [place] 00:00:00 00:00:00 836 Method i 2020-03-19 2020-03-23 Inpatient JAIME, [facility] [id number] [place] 00:00:00 00:00:00 CHERI 742 Method i 2020-03-14 2020-03-18 Inpatient DINAKAR, [facility] [id number] [place] 00:00:00 00:00:00 CHERI [address] 2020-02-13 2020-02-13 Laboratory Lab, [facility] 1.2.840.114 [id number] 10:22:10 10:42:10 Only Fam Pob I Health 350.1.13.10 [place] 4.2.7.2.686 Professio [id number] nal [address] 2020-02-13 2020-02-13 Laboratory Lab, [facility] Fam Pob I [facility] 1.2. 840.114 [id number] [facility] 10:22:10 10:42:10 Only Kamaljit, [facility] 350.1.13.10 ity of [place] 4.2.7.2.686 Quang as Professio [id number] Dc dical nal 044 [place] Branch Office [address] 2019-09-28 2019-09-28 [facility] [id number] 09:00:00 09:00:00 [facility] ent Clinics 2019-09-18 2019-09-18 Out[facility] [id number] 09:30:00 09:30:00 t [facility] ent Clinics 2019-08-14 2019-08-14 Transition Jocelyne Alexandra 1.2.840.114 [id number] 00:00:00 00:00:00 of Care Jovanny Souza [place] 350.1.13.10 [place] 4.2.7.2.686 [id number] [facility] 2019-08-14 2019-08-14 Transition Jocelyne Alexandra 1.2.840.114 [id number] [facility] 00:00:00 00:00:00 of Care Jovanny Souza [place] 350.1.13.10 ity [id number] [address] 2019-08-10 2019-08-11 [facility] [id number] 02:55:00 16:09:00 Encounter Shaina Whitt 350.1.13.10 [place] 4.2.7.2.686 [place] [id number] 081 2019-08-10 2019-08-11 Inpatient U MILLIE OHSASHA SHRUTI [id number] Univers 02:55:00 16:09:00 SHAINA [facility] 2019-08-10 2019-08-11 Hospital Millie OHSASHA 1.2.085.130 [id number] Univers 02:55:00 16:09:00 Encounter [facility]13.10 [facility] 4.2.7.2.686 [facility] [id number] [address] Results Test Description Test Time Test Comments Results Result Comments Source MAGNESIUM 2020-10-03 09:34:08 Test Item Value Reference Range Interpretation Comme nts MAGNESIUM (test code = 7971294041) 1.4 mg/dL 1.7-2.4 L Lab Interpretation (test code = 71519-9) [facility]26993[facility]2020-10-03 09:33:48 Test Item Value Reference Range Interpretation Comments NA (test code = 136 mmol/L 135-145 4860859970) K (test code = 3.3 mmol/L 3.5-5.0 L 2673857955) CL (test code = 100 mmol/L 98-108 2432511655) CO2 TOTAL (test code = 33 mmol/L 23-31 H 7345634165) AGAP (test code = 2-16 2463530536) BUN (test code = 3 mg/dL 7-23 L 8384258410) GLUCOSE (test code = 95 mg/dL 70-110 2599822825) CREATININE (test code = 0.47 mg/dL 0.50-1.04 L 5763882912) TOTAL BILI (test code = 1.5 mg/dL 0.1-1.1 H 4627114504) CALCIUM (test code = 8.1 mg/dL 8.6-10.6 L 4780387852) T PROTEIN (test code = 5.9 g/dL 6.3-8.2 L 7485567947) ALBUMIN (test code = 2.9 g/dL 3.5-5.0 L 5394955782) ALK PHOS (test code = 115 U/L 34-122 6490686652) ALTv (test code = 24 U/L 5-35 1742-6) AST(SGOT) (test code = 35 U/L 13-40 5037527511) eGFR (test code = mL/min/1.73m2 8711560784) SNOW (test code = SNOW) Association of [...] tests). Lab Interpretation Abnormal (test code = 96635-6) [facility] 09:33[facility]28 Test Item Value Reference Range Interpretation Comments PHOSPHORUS (test code = 5075614958) 2.8 mg/dL 2.5-5.0 Lab Interpretation (test code = Normal 25043-8) [facility] [id number] 09:31:46 Test Item Value Reference Range Interpretation [...] (test code = 53.8 fL 39.0-49.9 H 70019-5) RDW-CV (test code = 19.9 % 12.0-15.5 H 788-0) PLT (test code = See_Comment L [Automated 777-3) message] The sy stem which generated this result transmitted reference range : 166 - 358 10*3/ ?L. The reference r davi was not used to interpret this result as normal/abnormal . MPV (test code = 10.9 fL 9.5-12.9 98470-8) IPF % (test code = 3.6 % 1.3-7.7 Platelet count 5809818005) measured by fluorescence method. NRBC/100 WBC (test See_Comment [Automat ed code = 1643096324) message] The system which generated this result transmitted reference range : 0.0 - 10.0 /100 WBCs. The refer ence range was not u sed to interpret th is result as normal/abnormal . NRBC x10^3 (test code See_Comment [Auto mated = 6098154512) message] The s ystem which generated this result transmitted reference range : 10*3/?L. The reference range was not used to interpret this result as normal/abnormal . GRAN MAT (NEUT) % 68.1 % (test code = 770-8) IMM GRAN % (test code 1.10 % = 6772798583) LYMPH % (test code = 15.5 % 736-9) MONO % (test code = 11.3 % 5905-5) EOS % (test code = 3.4 % 713-8) BASO % (test code = 0.6 % 706-2) GRAN MAT x10^3(ANC) 2.42 10*3/uL 1.88-7.09 (test code = 1410656674) IMM GRAN x10^3 (test 0.04 10*3/uL 0.00-0.06 code = 2035873704) LYMPH x10^3 (test code 0.55 10*3/uL 1.32-3.29 L = 731-0) MONO x10^3 (test code 0.40 10*3/uL 0.33-0.92 = 742-7) EOS x10^3 (test code = 0.12 10*3/uL 0.03-0.39 711-2) BASO x10^3 (test code <0.03 0.01-0.07 = 704-7) Lab Interpretation Abnormal (test code = 33628-2) [facility] WITH [id number] 10:47:09 Test Item Value Reference Range Interpretation [...] (test code = 52.2 fL 39.0-49.9 H 14647-2) RDW-CV (test code = 18.6 % 12.0-15.5 H 788-0) PLT (test code = See_Comment L [Automated 777-3) message] The sy stem which generated this result transmitted reference range : 166 - 358 10*3/ ?L. The reference r davi was not used to interpret this result as normal/abnormal . MPV (test code = 10.1 fL 9.5-12.9 11544-5) IPF % (test code = 3.2 % 1.3-7.7 Platelet count 3739021907) measured by fluorescence method. NRBC/100 WBC (test See_Comment [Automat ed code = 5898155037) message] The system which generated this result transmitted reference range : 0.0 - 10.0 /100 WBCs. The refer ence range was not u sed to interpret th is result as normal/abnormal . NRBC x10^3 (test code See_Comment [Auto mated = 2597762263) message] The s ystem which generated this result transmitted reference range : 10*3/?L. The reference range was not used to interpret this result as normal/abnormal . GRAN MAT (NEUT) % 65.1 % (test code = 770-8) IMM GRAN % (test code 1.20 % = 9359574384) LYMPH % (test code = 16.9 % 736-9) MONO % (test code = 11.5 % 5905-5) EOS % (test code = 4.5 % 713-8) BASO % (test code = 0.8 % 706-2) GRAN MAT x10^3(ANC) 1.58 10*3/uL 1.88-7.09 L (test code = 0088534429) IMM GRAN x10^3 (test 0.03 10*3/uL 0.00-0.06 code = 2448625009) LYMPH x10^3 (test code 0.41 10*3/uL 1.32-3.29 L = 731-0) MONO x10^3 (test code 0.28 10*3/uL 0.33-0.92 L = 742-7) EOS x10^3 (test code = 0.11 10*3/uL 0.03-0.39 711-2) BASO x10^3 (test code <0.03 0.01-0.07 = 704-7) POLYCHROMASIA (test 2+ See_Comment [Automa josemanuel code = 29763-4) message] The system which generated this result transmitted reference range : 2+. The referen ce range was not u sed to interpret th is result as normal/abnormal . LG GRAN LYMPHS (test Rare Rare code = 2226745667) Lab Interpretation Abnormal (test code = 69501-2) [facility]. METABOLIC PANEL ([id number])2020-10-02 10:19:28 Test Item Value Reference Range Interpretation Comments NA (test code = 135 mmol/L 135-145 8805892290) K (test code = 3.4 mmol/L 3.5-5.0 L 8370301512) CL (test code = 104 mmol/L 98-108 5596141701) CO2 TOTAL (test code = 27 mmol/L 23-31 1939205958) AGAP (test code = 2-16 0642608559) BUN (test code = 4 mg/dL 7-23 L 3881982836) GLUCOSE (test code = 97 mg/dL 70-110 0368584525) CREATININE (test code = 0.45 mg/dL 0.50-1.04 L 0682114050) TOTAL BILI (test code = 1.7 mg/dL 0.1-1.1 H 7875115653) CALCIUM (test code = 8.2 mg/dL 8.6-10.6 L 9129579564) T PROTEIN (test code = 6.0 g/dL 6.3-8.2 L 7557107007) ALBUMIN (test code = 3.1 g/dL 3.5-5.0 L 7374002885) ALK PHOS (test code = 120 U/L 34-122 7918259984) ALTv (test code = 26 U/L 5-35 1742-6) AST(SGOT) (test code = 39 U/L 13-40 9626553216) eGFR (test code = mL/min/1.73m2 9953054367) SNOW (test code = SNOW) Association of [...] tests). Lab Interpretation Abnormal (test code = 21319-7) [facility] [id number] 02:50:27COVID DMT InterpretationInterpretation/Recommendations: Molecular NAAT Tests for [...] COVID-19 testing the patient has had at [facility], including molecular NAAT testing (more commonly known as PCR testing and Rapid ID Now testing) and antibody testing. It does not take into account any testing that a patient has had outside of the [facility] medical record. [facility] LABORAT[facility] SERVICESCOVID Resu [id number]-VpH-[id number] NAAT (no units) ? ? Date ? Value ? 02/13/2020 ? Not Detected ? SARS-CoV-2 Rapid ID NOW (no units) ? ? Date ? Value ? 09/29/2020 ? Not Detected ? ? ? 08/10/2019 ? Not Detected ? [facility] [id number] 10:31:29 Test Item Value Reference Range Interpretation [...] (test code = 52.3 fL 39.0-49.9 H 24754-1) RDW-CV (test code = 18.4 % 12.0-15.5 H 788-0) PLT (test code = See_Comment LL [Automated 777-3) message] The sy stem which generated this result transmitted reference range : 166 - 358 10*3/ ?L. The reference r davi was not used to interpret this result as normal/abnormal . MPV (test code = 11.2 fL 9.5-12.9 57841-7) IPF % (test code = 3.9 % 1.3-7.7 Platelet count 2652114020) measured by fluorescence method. NRBC/100 WBC (test See_Comment [Automat ed code = 2783273775) message] The system which generated this result transmitted reference range : 0.0 - 10.0 /100 WBCs. The refer ence range was not u sed to interpret th is result as normal/abnormal . NRBC x10^3 (test code <0.01 See_Comment [Auto mated = 1428106408) message] The s ystem which generated this result transmitted reference range : 10*3/?L. The reference range was not used to interpret this result as normal/abnormal . GRAN MAT (NEUT) % 57.5 % (test code = 770-8) IMM GRAN % (test code 0.50 % = 7303766841) LYMPH % (test code = 20.7 % 736-9) MONO % (test code = 13.3 % 5905-5) EOS % (test code = 6.9 % 713-8) BASO % (test code = 1.1 % 706-2) GRAN MAT x10^3(ANC) 1.08 10*3/uL 1.88-7.09 L (test code = 5857136262) IMM GRAN x10^3 (test <0.03 0.00-0.06 code = 9457595892) LYMPH x10^3 (test code 0.39 10*3/uL 1.32-3.29 L = 731-0) MONO x10^3 (test code 0.25 10*3/uL 0.33-0.92 L = 742-7) EOS x10^3 (test code = 0.13 10*3/uL 0.03-0.39 711-2) BASO x10^3 (test code <0.03 0.01-0.07 = 704-7) BASO STIPPLING (test Present A code = 703-9) ELLIPTO/OVAL (test 2+ See_Comment A [Automat ed code = 15702-1) message] The system which generated this result transmitted reference range : (none). The reference range was not used to interpret this result as normal/abnormal . POLYCHROMASIA (test 2+ See_Comment [Automa josemanuel code = 54390-8) message] The system which generated this result transmitted reference range : 2+. The referen ce range was not u sed to interpret th is result as normal/abnormal . Lab Interpretation Abnormal (test code = 01274-6) [facility]. METABOLIC PANEL ([id number])2020-10-01 09:19:22 Test Item Value Reference Range Interpretation Comments NA (test code = 135 mmol/L 135-145 0992248683) K (test code = 4.0 mmol/L 3.5-5.0 5227071444) CL (test code = 107 mmol/L 98-108 0016835670) CO2 TOTAL (test code = 24 mmol/L 23-31 8183588165) AGAP (test code = 2-16 0778710792) BUN (test code = 7 mg/dL 7-23 5712669745) GLUCOSE (test code = 93 mg/dL 70-110 4545162582) CREATININE (test code = 0.47 mg/dL 0.50-1.04 L 6871010526) TOTAL BILI (test code = 1.6 mg/dL 0.1-1.1 H 7506482900) CALCIUM (test code = 8.1 mg/dL 8.6-10.6 L 5066416566) T PROTEIN (test code = 5.8 g/dL 6.3-8.2 L 3255295292) ALBUMIN (test code = 2.8 g/dL 3.5-5.0 L 9115234007) ALK PHOS (test code = 106 U/L 34-122 5112253305) ALTv (test code = 23 U/L 5-35 1742-6) AST(SGOT) (test code = 39 U/L 13-40 5220759327) eGFR (test code = mL/min/1.73m2 3564167210) SNOW (test code = SNOW) Association of [...] tests). Lab Interpretation Abnormal (test code = 57883-9) [facility] CenterTROPONIN [id number] 20:47:45 Test Item Value Reference Range Interpretation Comments TROPONIN I (test 0.002 ng/mL See_Comment [Automated code = 2564265856) message] The system which generated this result [...] ? Lab Interpretation Normal (test code = 87583-8) [facility] CenterURINE [id number] 19:11:57 Test Item Value Reference Range Interpretation Comments URINE CULTURE (test code <10,000 CFU/mL = 630-4) Gram-Positive Cocci [facility] CenterFECAL PATHOGENS BY [id number] 18:17:03 Test Item Value Reference Range Interpretation Comments Campylobacter (jejuni, Negative Negative, coli and upsaliensis) Indeterminate, (test code = 53011-0) See comment Plesiomonas shigelloides Negative Negative, (test code = 15001-4) Indeterminate, See comment Salmonella (test code = Negative Negative, 28478-6) Indeterminate, See comment Yersinia enterocolitica Negative Negative, (test code = 16132-0) Indeterminate, See comment Vibrio (test code = Negative Negative, 56617-7) Indeterminate, See comment Vibrio cholerae (test Negative Negative, code = 21514-5) Indeterminate, See comment Enteroaggregative E. Negative Negative, coli (EAEC) (test code = Indeterminate, 91291-7) See comment Enteropathogenic E. coli Negative Negative, N/A, (EPEC) (test code = Indeterminate, 82760-9) See comment Enterotoxigenic E. coli Negative Negative, (ETEC) (test code = Indeterminate, 51249-0) See comment Shiga toxin-Producing E. Negative Negative, coli (STEC) (test code = Indeterminate, 25567-5) See comment Shigella/Enteroinvasive Negative Negative, E. coli (EIEC) (test Indeterminate, code = 58115-6) See comment Cryptosporidium (test Negative Negative, code = 73658-5) Indeterminate, See comment Cyclospora cayetanensis Negative Negative, (test code = 25794-0) Indeterminate, See comment Entamoeba histolytica Negative Negative, (test code = 76853-2) Indeterminate, See comment Giardia lamblia (test Negative Negative, code = 50091-0) Indeterminate, See comment Adenovirus F 40/41 (test Negative Negative, code = 63569-3) Indeterminate, See comment Astrovirus (test code = Negative Negative, 08179-0) Indeterminate, See comment Norovirus GI/GII (test Negative Negative, code = 98794-5) Indeterminate, See comment Rotavirus A (test code = Negative Negative, 31357-7) Indeterminate, See comment Sapovirus (test code = Negative Negative, 67448-9) Indeterminate, See comment Clostridioides Positive Negative, A (Clostridium) difficile Indeterminate, Toxin A/B (test code = See comment 66748-0) SNOW (test code = SNOW) Based on Front Up GI Panel package insert, the [employer] SystemsArray GI Panel contains a single multiplexed assay [...] Clostridium difficile toxin A/B Detected. Based the CepSwipelyid Xpert C. difficile/Epi assay package insert, Xpert C. difficile/Epi assay detects the toxin B gene (tcdB), the binary toxin gene (CDT), and the dgevjz-arhi-qqul deletion at nucleotide 117 within the gene [...] organism. Lab Interpretation (test Abnormal code = 51062-7) [facility] CenterOCCULT (GUAIAC) [id number] 14:26:32 Test Item Value Reference Range Interpretation Comments Occult (guaiac) Blood (test code = Negative Negative 2335-8) Lab Interpretation (test code = Normal 33772-5) [facility] WITH [id number] 13:54:12 Test Item Value Reference Range Interpretation [...] (test code = 52.9 fL 39.0-49.9 H 45348-5) RDW-CV (test code = 18.3 % 12.0-15.5 H 788-0) PLT (test code = See_Comment LL [Automated 777-3) message] The sy stem which generated this result transmitted reference range : 166 - 358 10*3/ ?L. The reference r davi was not used to interpret this result as normal/abnormal . MPV (test code = 10.8 fL 9.5-12.9 41258-3) IPF % (test code = 4.2 % 1.3-7.7 Platelet count 3111505474) measured by fluorescence method. NRBC/100 WBC (test See_Comment [Automat ed code = 4617966647) message] The system which generated this result transmitted reference range : 0.0 - 10.0 /100 WBCs. The refer ence range was not u sed to interpret th is result as normal/abnormal . NRBC x10^3 (test code <0.01 See_Comment [Auto mated = 6616422812) message] The s ystem which generated this result transmitted reference range : 10*3/?L. The reference range was not used to interpret this result as normal/abnormal . GRAN MAT (NEUT) % 60.0 % (test code = 770-8) IMM GRAN % (test code 0.40 % = 4848573588) LYMPH % (test code = 20.6 % 736-9) MONO % (test code = 11.3 % 5905-5) EOS % (test code = 6.9 % 713-8) BASO % (test code = 0.8 % 706-2) GRAN MAT x10^3(ANC) 1.49 10*3/uL 1.88-7.09 L (test code = 8267788416) IMM GRAN x10^3 (test <0.03 0.00-0.06 code = 5344928373) LYMPH x10^3 (test code 0.51 10*3/uL 1.32-3.29 L = 731-0) MONO x10^3 (test code 0.28 10*3/uL 0.33-0.92 L = 742-7) EOS x10^3 (test code = 0.17 10*3/uL 0.03-0.39 711-2) BASO x10^3 (test code <0.03 0.01-0.07 = 704-7) Lab Interpretation Abnormal (test code = 88431-7) [facility]. METABOLIC PANEL (68286)2020-09-30 12:47:49 Test Item Value Reference Range Interpretation Comments NA (test code = 135 mmol/L 135-145 3035938759) K (test code = 4.0 mmol/L 3.5-5.0 8290984739) CL (test code = 108 mmol/L 98-108 6143891978) CO2 TOTAL (test code = 23 mmol/L 23-31 3340575736) AGAP (test code = 2-16 5316841902) BUN (test code = 8 mg/dL 7-23 1793925801) GLUCOSE (test code = 109 mg/dL 70-110 6618539733) CREATININE (test code = 0.52 mg/dL 0.50-1.04 1482404779) TOTAL BILI (test code = 1.7 mg/dL 0.1-1.1 H 8128973901) CALCIUM (test code = 8.0 mg/dL 8.6-10.6 L 3884070546) T PROTEIN (test code = 5.7 g/dL 6.3-8.2 L 0261062955) ALBUMIN (test code = 2.7 g/dL 3.5-5.0 L 3400550005) ALK PHOS (test code = 106 U/L 34-122 3279801624) ALTv (test code = 22 U/L 5-35 1742-6) AST(SGOT) (test code = 34 U/L 13-40 9232593659) eGFR (test code = mL/min/1.73m2 6883893922) SNOW (test code = SNOW) Association of [...] tests). Lab Interpretation Abnormal (test code = 78118-4) [facility] CenterFECAL [id number] 11:49:39 Test Item Value Reference Range Interpretation Comments Fecal Leukocytes (test code = Positive Negative A 3101741051) Lab Interpretation (test code = Abnormal 89942-1) [facility] CenterN-TERMINAL [id number] 10:20:53 Test Item Value Reference Range Interpretation Comments NT-proBNP (test code 68 pg/mL See_Comment [Autom ated = 2363561059) message] The system which generated this result transmitted reference range : <=125. The reference range was not used to interpret this result as normal/abnormal . SNOW (test code = SNOW) Biotin has been reported to cause a negative bias, interpret results relative to patient's use of biotin. Lab Interpretation Normal (test code = 59342-6) [facility] CenterCLOSTRIDIUM DIFFICILE [id number] 05:18:16 Test Item Value Reference Range Interpretation Comments Clostridioides (Clostridium) Negative Negative difficile (test code = 16457-5) Lab Interpretation (test code = Normal 42096-7) [facility] CenterPONC GLUCOSE (AUTOMATED)2020-09-30 00:54:42 Test Item Value Reference Range Interpretation Comments POCT GLU (test code = 9166300770) 111 mg/dL 70-110 H Lab Interpretation (test code = Abnormal 99588-6) [facility] METABOLIC PANEL (NA, K, CL, CO2, GLUCOSE, BUN, CREATININE, CA)2020-09-29 22:08:22 Test Item Value Reference Range Interpretation Comments NA (test code = 135 mmol/L 135-145 4504709966) K (test code = 3.7 mmol/L 3.5-5.0 2438562419) CL (test code = 108 mmol/L 98-108 6282322982) CO2 TOTAL (test code = 22 mmol/L 23-31 L 8058426172) AGAP (test code = 2-16 0260425631) BUN (test code = 9 mg/dL 7-23 4760115251) GLUCOSE (test code = 104 mg/dL 70-110 9413214690) CREATININE (test code = 0.51 mg/dL 0.50-1.04 3557596107) CALCIUM (test code = 7.9 mg/dL 8.6-10.6 L 6373492005) eGFR (test code = mL/min/1.73m2 1655371716) SNOW (test code = SNOW) Association of [...] tests). Lab Interpretation Abnormal (test code = 52706-1) [facility] CenterHEMOGLOBIN2021-06-21 21:41:20 Test Item Value Reference Range Interpretation Comments HGB (test code = 718-7) 7.4 g/dL 11.6-15.0 L Lab Interpretation (test code = Abnormal 62143-9) [facility] CenterVITAMIN B12, [id number] 20:39:52 Test Item Value Reference Range Interpretation Comments VIT B12 (test code = 212 pg/mL 240-930 L 4404586399) SNOW (test code = SNOW) Biotin has been reported to cause a positive bias, interpret results relative to patient's use of biotin. 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.[facility] CenterC-REACTIVE [id number] 17:01:56 Test Item Value Reference Range Interpretation Comments CRP (test code = 8622148478) 4.7 mg/dL <0.8 H Lab Interpretation (test code = Abnormal 85947-1) [facility] CenterVITAMIN D, [id number] 16:43:29 Test Item Value Reference Range Interpretation Comments VIT D 25OH (test code = <13 25-80 L 12710-0) SNOW (test code = SNOW) Deficiency: <20 ng/mLInsufficiency: 20-24 ng/mLOptimal: 25-80 ng/mL Lab Interpretation (test Abnormal code = 89771-4) [facility] CenterPROCALCITONIN2021-06-21 16:15:30 Test Item Value Reference Range Interpretation Comments Procalcitonin (test 0.08 ng/mL <0.07 H code = 9733159334) SNOW (test code = SNOW) INTERPRETATION OF [...] biotics/default.asp Lab Interpretation Abnormal (test code = 50906-9) [facility] CenterOSMOLALITY [id number] 15:35:14 Test Item Value Reference Range Interpretation Comments OSMO U (test code = See_Comment [Automa josemanuel message] 1074907897) The system ith[employer]port generated this result transmitted ref erence range: 50-1,100 mOsm/kg. The re ference range was not u sed to interpret this result as normal/abnor mal. Lab Interpretation (test Normal code = 42855-6) [facility] CenterTROPONIN [id number] 14:04:56 Test Item Value Reference Range Interpretation Comments TROPONIN I (test 0.002 ng/mL See_Comment [Automated code = 7852752451) message] The system which generated this result [...] ? Lab Interpretation Normal (test code = 29716-7) [facility] CenterCT ABDOMEN PELVIS W [id number] 13:37:17 1. ?Findings concerning for infectious or [...] reviewed this study and agree with theabove report.[facility] WITH [id number] 11:41:25 Test Item Value Reference Range Interpretation [...] (test code = 52.4 fL 39.0-49.9 H 64912-5) RDW-CV (test code = 18.2 % 12.0-15.5 H 788-0) PLT (test code = See_Comment LL [Automated 777-3) message] The system which generated this result transmit josemanuel reference range : 166 - 358 10*3/ ?L. The reference range was not u sed to interpret th is result as normal/abnormal . MPV (test code = Not Measure d 95888-0) IPF % (test code = 4.3 % 1.3-7.7 Platelet count 5263273435) measured by fluorescence method. NRBC/100 WBC (test See_Comment [Automat ed code = 5040407043) message] The system which generated this result transmit josemanuel reference range : 0.0 - 10.0 /100 WBCs. The reference range was not used to interpret this result as normal/abnormal . NRBC x10^3 (test code <0.01 See_Comment [Auto mated = 9825899127) message] The system which generated this result transmit josemanuel reference range : 10*3/?L. The reference range was not used to interpret this result as normal/abnormal . GRAN MAT (NEUT) % 74.4 % (test code = 770-8) IMM GRAN % (test code 0.50 % = 2192734709) LYMPH % (test code = 10.3 % 736-9) MONO % (test code = 12.3 % 5905-5) EOS % (test code = 2.0 % 713-8) BASO % (test code = 0.5 % 706-2) GRAN MAT x10^3(ANC) 3.02 10*3/uL 1.88-7.09 (test code = 7355790171) IMM GRAN x10^3 (test <0.03 0.00-0.06 code = 4961822273) LYMPH x10^3 (test 0.42 10*3/uL 1.32-3.29 L code = 731-0) MONO x10^3 (test code 0.50 10*3/uL 0.33-0.92 = 742-7) EOS x10^3 (test code 0.08 10*3/uL 0.03-0.39 = 711-2) BASO x10^3 (test code <0.03 0.01-0.07 = 704-7) PLT ESTIMATE (test Decreased Normal A code = 9317-9) SNOW (test code = SNOW) CBC smear reduced platelet Lab Interpretation Abnormal (test code = 12877-9) [facility] CenterN-TERMINAL [id number] 11:07:24 Test Item Value Reference Range Interpretation Comments NT-proBNP (test code 79 pg/mL See_Comment [Autom ated = 4722336394) message] The system which generated this result transmitted reference range : <=125. The reference range was not used to interpret this result as normal/abnormal . SNOW (test code = SNOW) Biotin has been reported to cause a negative bias, interpret results relative to patient's use of biotin. Lab Interpretation Normal (test code = 04263-6) [facility] CenterIRON [id number] 11:04:41 Test Item Value Reference Range Interpretation Comments IRON (test code = 5931964285) 31 ug/dL 50-160 L TIBC (test code = 9737060623) 295 ug/dL 250-410 % FE SAT (test code = 3546495671) 11 % 20-50 L Lab Interpretation (test code = Abnormal 02749-1) [facility] CenterPROTEIN CREAT RATIO URINE [id number] 10:57:19 Test Item Value Reference Range Interpretation Comments T. PROT U (test code = 2888-6) 9 mg/dL CREAT U (test code = 2353875659) 187.5 mg/dL Protein/Creatinine Ratio Urine 0.0-2.0 (test code = 8147262140) [facility] CenterSODIUM, URINE [id number] 10:53:21 Test Item Value Reference Range Interpretation Comments NA URINE (test code = 8271150031) 30 mmol/L [facility] CenterSEDIMENTATION [id number] 10:33:04 Test Item Value Reference Range Interpretation Comments ESR (test code = See_Comment [Automated message] 6030489557) The system ic h generated this result transmitted ref erence range: 0 - 20 m m/HR. The reference r davi was not used to interpret this result as normal/abnor mal. Lab Interpretation (test Normal code = 72156-3) [facility] CenterPROTHROMBIN TIME / [id number] 09:43:39 Test Item Value Reference Range Interpretation [...] tions. Lab Interpretation (test Abnormal code = 01223-4) [facility] CenterLactic Acid Whole [id number] 08:42:38 Test Item Value Reference Range Interpretation Comments LACTIC ACID (test code = 1.47 mmol/L 0.50-2.20 2051547672) Lab Interpretation (test code = Normal 79301-2) [facility] CenterFERRITIN [id number] 07:31:09 Test Item Value Reference Range Interpretation Comments FERRITIN (test code = 12.2 ng/mL 11.0-264.0 0077776876) SNOW (test code = SNOW) Biotin has been reported to cause a negative bias, interpret results relative to patient's use of biotin. Lab Interpretation (test Normal code = 08030-7) [facility] CenterTHYROID STIMULATING [id number] 07:27:08 Test Item Value Reference Range Interpretation Comments TSH (test code = See_Comment [Automated message] 4620115110) The system [employer] generated this result transmitted ref erence range: 0.45 - 4 .70 mIU/L. The refe rence range was not u sed to interpret this result as normal/abnor mal. Lab Interpretation (test Normal code = 99044-2) [facility] CenterGLYCOSYLATED HEMOGLOBIN (A1C)2020-09-29 07:05:40 Test Item Value Reference Range Interpretation Comments HGB A1C (test code = 5.0 % 4.0-5.7 4548-4) SNOW (test code = SNOW) Reference RangesNormal: <5.7%Prediabetes: 5.7 - 6.4%Diabetes: > 6.5% Lab Interpretation (test Normal code = 30276-6) [facility] CenterURIC [id number] 07:05:35 Test Item Value Reference Range Interpretation Comments URIC ACID (test code = 4671618026) 4.2 mg/dL 2.9-6.0 Lab Interpretation (test code = Normal 62222-8) [facility] CenterCREATINE [id number] 07:05:30 Test Item Value Reference Range Interpretation Comments CK (test code = 5985568706) 192 U/L 33-194 Lab Interpretation (test code = Normal 97446-8) [facility] CenterN-TERMINAL [id number] 07:05:30 Test Item Value Reference Range Interpretation Comments NT-proBNP (test code 94 pg/mL See_Comment [Autom ated = 6472562856) message] The system which generated this result transmitted reference range : <=125. The reference range was not used to interpret this result as normal/abnormal . SNOW (test code = SNOW) Biotin has been reported to cause a negative bias, interpret results relative to patient's use of biotin. Lab Interpretation Normal (test code = 48338-2) [facility] CenterMAGNESIUM2021-06-21 07:04:24 Test Item Value Reference Range Interpretation Comments MAGNESIUM (test code = 5468191744) 1.8 mg/dL 1.7-2.4 Lab Interpretation (test code = Normal 25405-3) [facility] CenterPHOSPHORUS2021-06-21 07:03:39 Test Item Value Reference Range Interpretation Comments PHOSPHORUS (test code = 1658470421) 2.2 mg/dL 2.5-5.0 L Lab Interpretation (test code = Abnormal 81851-3) [facility] CenterLIPID PANEL (68378)(TOTAL CHOLESTEROL, TRIGLYCERIDES, HDL)2020-09-29 06:56:06 Test Item Value Reference Range Interpretation Comments CHOL (test code = 132 mg/dL 120-200 3834434705) HDL (test code = 41 mg/dL >50 L 1822061230) HDLC RATIO (test code = See_Comment [Au tomated message] 8417796846) The system [employer] generated this result transmit josemanuel reference range : <=4.5. The refe rence range was not u sed to interpret th is result as normal/abnormal . TRIG (test code = 73 mg/dL 30-170 3569100206) LDL CHOL (test code = 76 mg/dL See_Comment [Auto mated message] 43853-4) The system [employer] generated this result transmit josemanuel reference range : <=160. The refe rence range was not u sed to interpret th is result as normal/abnormal . VLDL (test code = 15 mg/dL 5-60 1529366428) Lab Interpretation (test Abnormal code = 16931-6) [facility]ID [facility]2020-09-29 06:24:26 Test Item Value Reference Range Interpretation Comments SARS-CoV-2 Rapid ID NOW Not Detected Not Detected (test code = 49729-6) SNOW (test code = SNOW) ID NOW COVID-19 Assay is an isothermal nucleic acid amplification test intended for the qualitative detection of nucleic acid from SARS-CoV-2 viral RNA in nasopharyngeal ([employer]) specimens. It is used under Emergency Use [...] indicated. Lab Interpretation Normal (test code = 27196-5) [facility] CenterURINALYSIS2021-06-21 04:43:31 Test Item Value Reference Range Interpretation Comments APPEARANCE (test code = Clear Clear 8306782261) COLOR (test code = Rosanne Yellow A 4579875146) PH (test code = 4.8-8.0 9228491001) SP GRAVITY (test code = 1.003-1.030 4802334228) GLU U QUAL (test code = Normal Normal 2388625623) BLOOD (test code = Negative Negative 5455204622) KETONES (test code = Negative Negative 6721936095) PROTEIN (test code = 30 mg/dL Negative A 2887-8) UROBILIN (test code = Normal Normal 4758086922) BILIRUBIN (test code = Negative Negative 2943444954) NITRITE (test code = Negative Negative 7468185731) LEUK RANULFO (test code = 25/uL Negative A 7250776123) RBC/HPF (test code = See_Comment [Autom ated message] 6381844727) The system [employer] generated this result transmitted ref erence range: 0 - 3 HP F. The reference range was not used to int erpret this result as normal/abnormal . WBC/HPF (test code = See_Comment [Autom ated message] 4233579359) The system ic h generated this result transmitted ref erence range: 0 - 5 HP F. The reference range was not used to int erpret this result as normal/abnormal . BACTERIA (test code = Few Negative A 7898849358) MUCOUS (test code = Moderate Negative LPF A 6700545355) SQ EPITH (test code = HPF 4763544954) Lab Interpretation (test Abnormal code = 23408-7) [facility] WITH [id number] 04:39:35 Test Item Value Reference Range Interpretation [...] (test code = 51.3 fL 39.0-49.9 H 32739-7) RDW-CV (test code = 18.1 % 12.0-15.5 H 788-0) PLT (test code = See_Comment L [Automated 777-3) message] The system which generated this result transmit josemanuel reference range : 166 - 358 10*3/ ?L. The reference range was not u sed to interpret th is result as normal/abnormal . MPV (test code = 11.1 fL 9.5-12.9 43540-0) IPF % (test code = 3.7 % 1.3-7.7 Platelet count 8511496219) measured by fluorescence method. NRBC/100 WBC (test See_Comment [Automat ed code = 1295787939) message] The system which generated this result transmit josemanuel reference range : 0.0 - 10.0 /100 WBCs. The reference range was not used to interpret this result as normal/abnormal . NRBC x10^3 (test code <0.01 See_Comment [Auto mated = 9838353565) message] The system which generated this result transmit josemanuel reference range : 10*3/?L. The reference range was not used to interpret this result as normal/abnormal . GRAN MAT (NEUT) % 76.4 % (test code = 770-8) IMM GRAN % (test code 0.80 % = 2800906739) LYMPH % (test code = 9.4 % 736-9) MONO % (test code = 11.3 % 5905-5) EOS % (test code = 1.5 % 713-8) BASO % (test code = 0.6 % 706-2) GRAN MAT x10^3(ANC) 4.07 10*3/uL 1.88-7.09 (test code = 6560883233) IMM GRAN x10^3 (test 0.04 10*3/uL 0.00-0.06 code = 4111322228) LYMPH x10^3 (test 0.50 10*3/uL 1.32-3.29 L code = 731-0) MONO x10^3 (test code 0.60 10*3/uL 0.33-0.92 = 742-7) EOS x10^3 (test code 0.08 10*3/uL 0.03-0.39 = 711-2) BASO x10^3 (test code 0.03 10*3/uL 0.01-0.07 = 704-7) PLT ESTIMATE (test Decreased Normal A code = 9317-9) SNOW (test code = SNOW) Juan slide adgrees to decreased Platelet Lab Interpretation Abnormal (test code = 62764-2) [facility]. METABOLIC PANEL (46577)2020-09-29 04:25:42 Test Item Value Reference Range Interpretation Comments NA (test code = 134 mmol/L 135-145 L 8758114673) K (test code = 3.2 mmol/L 3.5-5.0 L 0566140774) CL (test code = 104 mmol/L 98-108 1139168614) CO2 TOTAL (test code = 24 mmol/L 23-31 7445831593) AGAP (test code = 2-16 2456227715) BUN (test code = 8 mg/dL 7-23 6014831259) GLUCOSE (test code = 105 mg/dL 70-110 9281195125) CREATININE (test code = 0.51 mg/dL 0.50-1.04 3480105024) TOTAL BILI (test code = 2.5 mg/dL 0.1-1.1 H 6440561248) CALCIUM (test code = 8.2 mg/dL 8.6-10.6 L 1667376503) T PROTEIN (test code = 6.3 g/dL 6.3-8.2 5334072134) ALBUMIN (test code = 3.1 g/dL 3.5-5.0 L 0601048839) ALK PHOS (test code = 136 U/L 34-122 H 9179509186) ALTv (test code = 24 U/L 5-35 1742-6) AST(SGOT) (test code = 30 U/L 13-40 1603250540) eGFR (test code = mL/min/1.73m2 7754293542) SNOW (test code = SNOW) Association of [...] tests). 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 healthcare 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 (test code = 93709-3) Whether the patient has symptoms related to condition of interest (test code = 71912-5) Patient was hospitalized because of this condition (test code = 68213-1) Whether the patient was admitted to intensive care unit (ICU) for condition of interest (test code = 40512-2) Whether patient resides in a congregate care setting (test code = 59856-8) SARS-CoV-2 (COVID-19) RNA [Presence] in Respiratory specimen by HELENA with probe [id number] 02:47:43 Test Item Value Reference Range Interpretation Comments SARS-CoV-2 (COVID-19) RNA Not detected Not-Detected [Presence] in Respiratory specimen by HELENA with probe detection (test code = 89586-9) SARS-CoV-2 (COVID-19) RNA [Presence] in Respiratory specimen by HELENA with probe [id number] 16:32:37 Test Item Value Reference Range Interpretation Comments SARS-CoV-2 (COVID-19) RNA Not detected Not-Detected [Presence] in Respiratory specimen by HELENA with probe detection (test code = 23503-6) SARS-CoV-2 (COVID-19) RNA [Presence] in Respiratory specimen by HELENA with probe [id number] 05:29:57 Test Item Value Reference Range Interpretation Comments SARS-CoV-2 (COVID-19) RNA Not detected Not-Detected [Presence] in Respiratory specimen by HELENA with probe detection (test code = 75567-9) CT ABDOMEN PELVIS W [id number] 19:27:49 1. ?No evidence of small bowel obstruction. 2. 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 3. Nonspecific mesenteric inflammation in the pericecal region with changesof prior appendectomy. There is no associated wall thickening in theadjacent bowel. This could be infectious and appears similar on the priorstudy. Preliminary Report Dictated by Resident: Frandy Denise ?MD. Michael, have reviewed this study and agree with [...] on the priorstudy.PreliminaryReport Dictated by Resident: Vilma RosenhI, Frandy Rodriguez MD., have reviewed this study and agree with the abovereport.[facility] WITH [id number] 11:56:00 Test Item Value Reference Range Interpretation [...] (test code = 58.0 fL 39-49.9 H 90168-4) RDW-CV (test code = 16.6 % 12-15.5 H 788-0) PLT (test code = See_Comment LL [Automated 777-3) message] The sy stem which generated this result transmitted reference range : 166 - 358 10*3/ ?L. The reference r davi was not used to interpret this result as normal/abnormal . MPV (test code = 11.0 fL 9.5-12.9 62951-5) IPF % (test code = 5.5 % 1.3-7.7 Platelet count 5878772169) measured by fluorescence method. NRBC/100 WBC (test See_Comment [Automat ed code = 5707514268) message] The system which generated this result transmitted reference range : 0.0 - 10.0 /100 WBCs. The refer ence range was not u sed to interpret th is result as normal/abnormal . NRBC x10^3 (test code <0.01 See_Comment [Auto mated = 8017606260) message] The s ystem which generated this result transmitted reference range : 10*3/?L. The reference range was not used to interpret this result as normal/abnormal . GRAN MAT (NEUT) % 57.6 % (test code = 770-8) IMM GRAN % (test code 0.00 % = 4890349069) LYMPH % (test code = 27.1 % 736-9) MONO % (test code = 11.8 % 5905-5) EOS % (test code = 3.1 % 713-8) BASO % (test code = 0.4 % 706-2) GRAN MAT x10^3(ANC) 1.47 10*3/uL 1.88-7.09 L (test code = 7754911692) IMM GRAN x10^3 (test <0.03 0-0.06 code = 5288874447) LYMPH x10^3 (test code 0.69 10*3/uL 1.32-3.29 L = 731-0) MONO x10^3 (test code 0.30 10*3/uL 0.33-0.92 L = 742-7) EOS x10^3 (test code = 0.08 10*3/uL 0.03-0.39 711-2) BASO x10^3 (test code <0.03 0.01-0.07 = 704-7) Lab Interpretation Abnormal (test code = 06907-9) [facility]. METABOLIC PANEL (22428)2019-08-11 10:42:00 Test Item Value Reference Range Interpretation Comments NA (test code = 138 mmol/L 135-145 6786295167) K (test code = 3.8 mmol/L 3.5-5 5002473773) CL (test code = 108 mmol/L 98-108 0004820433) CO2 TOTAL (test code = 24 mmol/L 23-31 5593190770) AGAP (test code = 2-16 8829270036) BUN (test code = 10 mg/dL 7-23 6674160790) GLUCOSE (test code = 108 mg/dL 70-110 7736111948) CREATININE (test code = 0.43 mg/dL 0.5-1.04 L 9955531369) TOTAL BILI (test code = 2.5 mg/dL 0.1-1.1 H 1599392474) CALCIUM (test code = 8.4 mg/dL 8.6-10.6 L 6146853781) T PROTEIN (test code = 6.1 g/dL 6.3-8.2 L 4845880205) ALBUMIN (test code = 3.1 g/dL 3.5-5 L 6660190792) ALK PHOS (test code = 102 U/L 34-122 6804121839) ALTv (test code = 52 U/L 5-35 H 1742-6) AST(SGOT) (test code = 63 U/L 13-40 H 8404673689) eGFR Calculation mL/min/1.73m2 (Non-) (test code = 7203542756) eGFR Calculation mL/min/1.73m2 () (test code = 7184182996) SNOW (test code = SNOW) Association of [...] tests). Lab Interpretation Abnormal (test code = 50185-5) [facility] CenterXR SMALL BOWEL [id number] 02:08:11 1. ?No bowel obstruction. No fluoroscopic [...] obstruction.No fluoroscopic images or fluoroscopic time.RL 6200 UnCH[facility] SpringsSEDIMENTATION [id number] 16:19:00 Test Item Value Reference Range Interpretation Comments ESR (test code = See_Comment [Automated message] 0651907243) The system [employer]port generated this result transmitted ref erence range: 0 - 20 m m/HR. The reference r davi was not used to interpret this result as normal/abnor mal. Lab Interpretation (test Normal code = 58507-2) [facility] CenterAbdominal 1 View - To confirm nasogastric tube placement.2019-08-10 15:24:13 1. ?Enteric tube terminates in the gastric body. 2. ?Gas-distended, nondilated large and small bowel in the visualized upperabdomen. Preliminary Report Dictated by Resident: Keo Le [...] system. No acute bony abnormalities are noted. [facility], Radiant Results Inft User - 08/10/2019 10:25 [...] Report Dictated by Resident: Keo Dorantes, Yazmin Villalobos MD., have reviewed this study and agree with the abovereport.[facility] WITH [id number] 13:48:00 Test Item Value Reference Range Interpretation Comments WBC (test code = See_Comment L [Automated 2390-2) message] The system which generated this result transmit josemanuel reference range : 4.30 - 11.10 10*3/?L. The reference range was not used to interpret this result as normal/abnormal . RBC (test code = See_Comment L [Automated 279-8) message] The system which generated this result [...] (test code = 58.4 fL 39-49.9 H 72234-5) RDW-CV (test code = 16.7 % 12-15.5 H 788-0) PLT (test code = See_Comment LL [Automated 777-3) message] The system which generated this result transmit josemanuel reference range : 166 - 358 10*3/ ?L. The reference range was not u sed to interpret th is result as normal/abnormal . MPV (test code = 10.5 fL 9.5-12.9 25657-6) IPF % (test code = 3.0 % 1.3-7.7 Platelet count 7478689133) measured by fluorescence method. NRBC/100 WBC (test See_Comment [Automat ed code = 3780612932) message] The system which generated this result transmit josemanuel reference range : 0.0 - 10.0 /100 WBCs. The reference range was not used to interpret this result as normal/abnormal . NRBC x10^3 (test code <0.01 See_Comment [Auto mated = 8556160060) message] The system which generated this result transmit josemanuel reference range : 10*3/?L. The reference range was not used to interpret this result as normal/abnormal . GRAN MAT (NEUT) % 57.1 % (test code = 770-8) IMM GRAN % (test code 0.40 % = 3526685315) LYMPH % (test code = 28.1 % 736-9) MONO % (test code = 10.4 % 5905-5) EOS % (test code = 3.6 % 713-8) BASO % (test code = 0.4 % 706-2) GRAN MAT x10^3(ANC) 1.42 10*3/uL 1.88-7.09 L (test code = 1838390985) IMM GRAN x10^3 (test <0.03 0-0.06 code = 0450215172) LYMPH x10^3 (test 0.70 10*3/uL 1.32-3.29 L code = 731-0) MONO x10^3 (test code 0.26 10*3/uL 0.33-0.92 L = 742-7) EOS x10^3 (test code 0.09 10*3/uL 0.03-0.39 = 711-2) BASO x10^3 (test code <0.03 0.01-0.07 = 704-7) PLT ESTIMATE (test Critically Normal AA code = 9317-9) Decreased Lab Interpretation Abnormal (test code = 73701-3) [facility] CenterGLYCOSYLATED HEMOGLOBIN (A1C)2019-08-10 13:13:00 Test Item Value Reference [...] Indicated Lab Interpretation Normal (test code = 85775-2) [facility] CenterTHYROID STIMULATING [id number] 13:05:00 Test Item Value Reference Range Interpretation Comments TSH (test code = See_Comment [Automated message] 8300347601) The system ith[employer]port generated this result transmitted ref erence range: 0.45 - 4 .70 mIU/L. The refe rence range was not u sed to interpret this result as normal/abnor mal. Lab Interpretation (test Normal code = 56262-9) [facility] CenterPREGNANCY TEST, [id number] 13:04:00 Test Item Value Reference Range Interpretation Comments PREG SERUM (test code Negative = 3316798136) SNOW (test code = SNOW) Less than 10 IU/L. ?If low titer or ectopic is suspected, resubmit specimen in 48-72 hours. [facility] CenterLIPID PANEL (64195)(TOTAL CHOLESTEROL, TRIGLYCERIDES, HDL)2019-08-10 12:36:00 Test Item Value Reference Range Interpretation Comments CHOL (test code = 158 mg/dL 120-200 6055065506) HDL (test code = 47 mg/dL >50 L 0201364596) HDLC RATIO (test code = See_Comment [Au tomated message] 1726927951) The system [employer]port generated this result transmit josemanuel reference range : <=4.5. The refe rence range was not u sed to interpret th is result as normal/abnormal . TRIG (test code = 51 mg/dL 30-170 6060876769) LDL CHOL (test code = 101 mg/dL See_Comment [Auto mated message] 93383-5) The system [employer] generated this result transmit josemanuel reference range : <=160. The refe rence range was not u sed to interpret th is result as normal/abnormal . VLDL (test code = 10 mg/dL 5-60 0359612477) Lab Interpretation (test Abnormal code = 53007-3) [facility]. METABOLIC PANEL (97270)2019-08-10 12:35:00 Test Item Value Reference Range Interpretation Comments NA (test code = 139 mmol/L 135-145 3727937944) K (test code = 3.9 mmol/L 3.5-5 9671236100) CL (test code = 109 mmol/L 98-108 H 0890996117) CO2 TOTAL (test code = 25 mmol/L 23-31 6018141266) AGAP (test code = 2-16 0897013673) BUN (test code = 15 mg/dL 7-23 4633615237) GLUCOSE (test code = 218 mg/dL 70-110 H 9324856902) CREATININE (test code = 0.40 mg/dL 0.5-1.04 L 7116990638) TOTAL BILI (test code = 2.0 mg/dL 0.1-1.1 H 9088482948) CALCIUM (test code = 8.5 mg/dL 8.6-10.6 L 8318461199) T PROTEIN (test code = 6.2 g/dL 6.3-8.2 L 7646179643) ALBUMIN (test code = 3.1 g/dL 3.5-5 L 4905174659) ALK PHOS (test code = 99 U/L 34-122 4632063212) ALTv (test code = 42 U/L 5-35 H 1742-6) AST(SGOT) (test code = 49 U/L 13-40 H 0568668002) eGFR Calculation mL/min/1.73m2 (Non-) (test code = 6495492144) eGFR Calculation mL/min/1.73m2 () (test code = 1139132313) SNOW (test code = SNOW) Association of [...] tests). Lab Interpretation Abnormal (test code = 20488-8) [facility] CenterMAGNESIUM2020-05-01 12:35:00 Test Item Value Reference Range Interpretation Comments MAGNESIUM (test code = 3196822286) 1.6 mg/dL 1.7-2.4 L Lab Interpretation (test code = Abnormal 71619-6) [facility] CenterPHOSPHORUS2020-05-01 12:35:00 Test Item Value Reference Range Interpretation Comments PHOSPHORUS (test code = 3734116031) 3.6 mg/dL 2.5-5 Lab Interpretation (test code = Normal 89976-0) [facility] CenterCREATINE [id number] 12:35:00 Test Item Value Reference Range Interpretation Comments CK (test code = 0887997345) 123 U/L 33-194 Lab Interpretation (test code = Normal 47048-6) [facility] CenterLIPASE2020-05-01 12:35:00 Test Item Value Reference Range Interpretation Comments LIPASE (test code = 3551777659) 141 U/L 0-220 Lab Interpretation (test code = Normal 78980-2) [facility] CenterAMYLASE2020-05-01 12:34:00 Test Item Value Reference Range Interpretation Comments LIN (test code = 8691366243) 73 U/L 35-110 Lab Interpretation (test code = Normal 93568-6) [facility] CenterPROTHROMBIN TIME / [id number] 12:07:00 Test Item Value Reference Range Interpretation Comments PROTIME PATIENT (test See_Comment H [Auto mated message] code = 5964-2) The system [employer] generated this result transmitted ref erence range: 12.0 - 1 4.7 Seconds. The reference range was not used to int erpret this result as normal/abnormal . INR (test code = 6301-6) Nor mal INR <1.1; Warfarin Therap eutic range 2.0 to 3. 0 or 2.5 to 3.5, dep ending upon the indica tions. Lab Interpretation (test Abnormal code = 43904-5) [facility] CenterCORONAVIRUS COVID-19 [id number] 10:18:00 Test Item Value Reference Range Interpretation Comments SARS-CoV-2 (test code = Not Detected Not Detected 19248-8) SNOW (test code = SNOW) ID NOW COVID-19 Assay is an isothermal nucleic acid amplification test intended for the qualitative detection of nucleic acid from SARS-CoV-2 viral RNA in nasopharyngeal (CADDY PACKER) specimens. It is used under Emergency Use [...] indicated. Lab Interpretation Normal (test code = 35349-6) [facility] CenterRAD, CHEST, 1 VIEW, NON [id number] 07:50:00Reason for exam:->SOBShould this be performed at the bedside?->Yes FINAL REPORT CLINICAL HISTORY: SOB TECHNIQUE: 1 view of the chest. COMPARISON: None IMPRESSION: There is pulmonary vascular congestion with prominent lung markings bilaterally. Subpulmonic pleural effusions cannot be excluded. The cardiomediastinal silhouette is magnified by technique. Signed: Franky Louis MDReport Verified Date/Time: 10/03/2018 07:50:47 Reading Location: [facility] Reading Room [id number] 07:37:00 Test Item Value Reference Range Interpretation Comments MAGNESIUM (BEAKER) (test code = 1.6 mg/dL 1.6-2.6 627) BASIC METABOLIC [id number] 07:37:00 Test Item Value Reference Range Interpretation [...] DIALYSIS PATIEN TS. Specimen slightly ictericHEPATIC FUNCTION [id number] 07:37:00 Test Item Value Reference Range Interpretation [...] 35 U/L 6-55 347) Specimen slightly ictericPROTHROMBIN TIME/[id number] 06:25:00 Test Item Value Reference Range Interpretation [...] mechanical heart valves.CBC W/PLT COUNT & AUTO [id number] 06:16:00 Test Item Value Reference Range Interpretation [...] = 3438) Received comment: User comments: Slide comments:[id number] 05:58:00 Test Item Value Reference Range Interpretation Comments MAGNESIUM (BEAKER) (test code = 1.6 mg/dL 1.6-2.6 627) BASIC METABOLIC [id number] 05:58:00 Test Item Value Reference Range Interpretation [...] DIALYSIS PATIEN TS. Specimen slightly ictericHEPATIC FUNCTION [id number] 05:58:00 Test Item Value Reference Range Interpretation [...] 39 U/L 6-55 347) Specimen slightly ictericPROTHROMBIN TIME/[id number] 05:26:00 Test Item Value Reference Range Interpretation [...] mechanical heart valves.CBC W/PLT COUNT & AUTO [id number] 05:20:00 Test Item Value Reference Range Interpretation [...] WBC 0-0 (test code = 413) VITAMIN [id number] 06:57:00 Test Item Value Reference Range Interpretation Comments VITAMIN B12 (BEAKER) (test code = 178 pg/mL 213-816 L 774) [id number] 06:57:00 Test Item Value Reference Range Interpretation Comments FERRITIN (BEAKER) (test code = 361) 21 ng/mL 5-275 FOLATE, [id number] 06:57:00 Test Item Value Reference Range Interpretation [...] 28 % 20-55 (test code = 2590) [id number] 05:59:00 Test Item Value Reference Range Interpretation Comments MAGNESIUM (BEAKER) (test code = 1.7 mg/dL 1.6-2.6 627) BASIC METABOLIC [id number] 05:59:00 Test Item Value Reference Range Interpretation [...] FOR DIALYSIS PATIEN TS. Specimen slightly ictericLIPID [id number] 05:59:00 Test Item Value Reference Range Interpretation [...] Very High >=190 Specimen slightly ictericHEPATIC FUNCTION [id number] 05:59:00 Test Item Value Reference Range Interpretation [...] = 41 U/L 6-55 347) Specimen slightly [id number] 05:59:00 Test Item Value Reference Range Interpretation Comments LIPASE (BEAKER) (test code = 749) 35 U/L 8-78 Specimen slightly ictericPROTHROMBIN TIME/[id number] 05:58:00 Test Item Value Reference Range Interpretation [...] mechanical heart valves.CBC W/PLT COUNT & AUTO [id number] 05:37:00 Test Item Value Reference Range Interpretation [...] PERCENT (BEAKER) (test code = 2801) POCT-HEMOGLOBIN [id number] 06:12:00 Test Item Value Reference Range Interpretation Comments POC-HEMOGLOBIN METER 8.6 g/dL 12.0-15.0 L TESTED AT [facility] 67[address] (BEAKER) (test code = [place] [address] 1539)"
== END ==
LOC: ER 03:23
DX: Z02.89 Encounter for other administrative examinations (principal); Z53.21 Procedure and treatment not carried out due to patient leaving prior to being seen by health care provider

== ENCOUNTER 2021-04-27 04:57 | Emergency (ER) | payer OTHER ==
--- OUTSIDE RECORDS SUMMARY | 2021-04-27 05:06 | XMS REPORT | Continuity of Care Document ---
:1960 Author Organization [facility] t Address [address] [place] [address] Dr. [address] [place] [address] Care Team Providers Name Role Phone Sami HERNANDEZ Primary Care Physician [facility]available [facility] Attending Clinician Unavailable José Manuel GREEN Attending Clinician Unavailable Beatriz GROUND DEFENCE OFFICER, F Attending Clinician Nancy REYES Attending Clinician Unavailable NETTIE Attending Clinician Unavailable Only, Db Test Attending Clinician Unavailable Unknown Attending Clinician Unavailable Doctor Unassigned, Name Attending Clinician Unavailable JAIME Attending Clinician Unavailable Sami CARLOS Attending Clinician Unavailable SYLVIA Attending Clinician Unavailable Claudia REYES, M Attending Clinician Cristina HENSLEY, S Attending Clinician Millie HENSLEY Attending Clinician MANUELITO Attending Clinician Unavailable MD MANUELITO Attending Clinician Unavailable Kyrie GERMAN Attending Clinician Unavailable SHERIDAN THOMAS MD Attending Clinician Unavailable MD CECE SANDOVAL Attending Clinician Unavailable Lab, Fam Pob I Attending Clinician Unavailable Kamaljit GARCIA, A Attending Clinician Nasrin RN, A Attending Clinician Unavailable MILLIE Attending Clinician Unavailable SHAYY DAVEY Attending Clinician Unavailable JUDTI ESCALONA Attending Clinician Unavailable BEATRIZ F Admitting Clinician Unavailable SHERIDAN THOMAS Admitting Clinician Unavailable [...] Number Effective Date Expiration Date Deshawn blancas [facility] [id number] 2019 CHOICE 00:00:00 Problems Condition Condition Condition [...] t Reaction Available [facility] Social History Social Habit Start Date Stop Date Quantity Comments Source Exposure to Not sure [facility] SARS-CoV-2 [place] [facility] (event) Branch Alcohol intake 2021-04-02 2021-04-02 Ex-drinker [facility] 00:00:00 00:00:00 (finding) [facility] Tobacco use and 2016-08-07 2016-08-07 Never used Universit y of exposure 00:00:00 00:00:00 [facility] Sex Ass[birth year] At [birth year] Universit y of 00:00:00 00:00:00 [facility] Smoking Status Start Date Stop Date Source Never smoker [facility] Medications Ordered Filled Start Stop Current [...] 04/02/21 at 1445, VERN ondansetron 2020-04 Yes [id number] 4mg Take 1 Univers 4 mg 2-23 tablet by ity of disintegrat 00:00: mouth [place] ing tablet 00 every 8 Medica l (eight) Branch hours as needed for Nausea and Vomiting (N/V). ondansetron 2020-04 Yes [id number] 4mg Take 1 Univers 4 mg 2-23 tablet by ity of disintegrat 00:00: mouth [place] ing tablet 00 every 8 Medica l (eight) Branch hours as needed for Nausea and Vomiting (N/V). cholecalcif 2020- No [id number] 1999U Take 2 Univers nuno, 6-26 07-27 tablets by ity of vitamin D3, 00:00: 04:59 [place] 25 mcg 00 :00 daily for Medical (1,000 30 days. Branch unit) tablet cyanocobala 2020- No [id number] 1000ug inject 1 Univers min 1,000 6-26 07-27 mL under ity o f mcg/mL 00:00: 04:59 the skin [place] injection 00 :00 every 24 Medica l (twenty-fo Branch ur) hours for 30 days. KCL 20 mEq 2020- No [id number] 20meq Take 1 Univers tablet 6-26 07-27 tablet by ity of 00:00: 04:59 mouth [place] 00 :00 daily for Medical 30 days. Branch cholecalcif 2020- No [id number] Take 2 Univers nuno, 6-26 07-27 tablets by ity of vitamin D3, 00:00: 04:59 [place] 25 mcg 00 :00 daily for Medical (1,000 30 days. Branch unit) tablet cyanocobala 2020- No [id number] 1000ug inject 1 Univers min 1,000 - 07-27 mL under ity o f mcg/mL 00:00: 04:59 the skin [place] injection 00 :00 every 24 Medica l (twenty-fo Branch ur) hours for 30 days. KCL 20 mEq 2020- No [id number] 20meq Take 1 Univers tablet 10-04 07-27 tablet by ity of 00:00: 04:59 mouth [place] 00 :00 daily for Medical 30 days. Branch lactulose Yes 30mL Take 30 mL Un marline 10 gram/15 6-25 by mouth ity o f mL oral 18:10: daily. [place] solution 25 Medical Branch pantoprazol Yes 40mg Take 40 mg Univers e 6-25 by mouth ity of (PROTONIX) 18:10: daily. [place] 40 mg EC 25 Medical tablet Branch lactulose Yes 30mL Take 30 mL Un marline 10 gram/15 6-25 by mouth ity o f mL oral 18:10: daily. [place] solution 25 Medical Branch pantoprazol Yes 40mg [...] ity o f mL oral 13:10: daily. [place] solution 25 Medical Branch pantoprazol Yes 40mg Take 40 mg Univers e 6-25 by mouth ity of (PROTONIX) 13:10: daily. [place] 40 mg EC 25 Medical tablet Branch lactulose Yes 30mL Take 30 mL Un marline 10 gram/15 6-25 by mouth ity o f mL oral 13:10: daily. [place] solution 25 Medical Branch pantoprazol Yes 40mg Take 40 mg Univers e 6-25 by mouth ity of (PROTONIX) 13:10: daily. [place] 40 mg EC 25 Medical tablet Branch lactulose 0 Yes 30mL Take 30 mL Un marline 10 gram/15 6-25 by mouth ity o f mL oral 13:10: daily. [place] solution 25 Medical Branch pantoprazol Yes 40mg [...] ity o f mL oral 13:10: daily. [place] solution 25 Medical Branch pantoprazol Yes 40mg Take 40 mg Univers e 6-25 by mouth ity of (PROTONIX) 13:10: daily. [place] 40 mg EC 25 Medical tablet Branch proMETHazin Yes 12.5mg 12.5 mg, Univers e 6-25 Oral, ity of (PHENERGAN) 04:17: Q6HPRN, [place] as tablet 12.5 34 Starting Medi omlly mg Geraldine Branch 10/02/20 at 2317, Until Discontinu ed, Routine, Nausea and Vomiting (N/V), N/V unresponsi ve to Ondansetro n proMETHazin Yes [id number] 12.5mg Take 1 Univers e 12.5 mg 6-25 tablet by ity o f tablet 00:00: mouth [place] 00 every 6 Medical (six) Branch hours as needed for Nausea and Vomiting (N/V) or N/V unresponsi ve to Ondansetro n. proMETHazin Yes [id number] 12.5mg Take 1 Univers e 12.5 mg 6-25 tablet by ity o f tablet 00:00: mouth [place] 00 every 6 Medical (six) Branch hours as needed for Nausea and Vomiting (N/V) or N/V unresponsi ve to Ondansetro n. proMETHazin Yes [id number] 12.5mg Take 1 Univers e 12.5 mg 6-25 tablet by ity o f tablet 00:00: mouth [place] 00 every 6 Medical (six) Branch hours as needed for Nausea and Vomiting (N/V) or N/V unresponsi ve to Ondansetro n. proMETHazin Yes [id number] 12.5mg Take 1 Univers e 12.5 mg 6-25 tablet by ity o f tablet 00:00: mouth [place] 00 every 6 Medical (six) Branch hours as needed for Nausea and Vomiting (N/V) or N/V unresponsi ve to Ondansetro n. proMETHazin Yes [id number] 12.5mg Take 1 Univers e 12.5 mg 6-25 tablet by ity o f tablet 00:00: mouth [place] 00 every 6 Medical (six) Branch hours as needed for Nausea and Vomiting (N/V) or N/V unresponsi ve to Ondansetro n. proMETHazin Yes [id number] 12.5mg Take 1 Univers e 12.5 mg 6-25 tablet by ity o f tablet 00:00: mouth [place] 00 every 6 Medical (six) Branch hours as needed for Nausea and Vomiting (N/V) or N/V unresponsi ve to Ondansetro n. proMETHazin Yes [id number] 12.5mg Take 1 Univers e 12.5 mg 6-25 tablet by ity o f tablet 00:00: mouth [place] 00 every 6 Medical (six) Branch hours as needed for Nausea and Vomiting (N/V) or N/V unresponsi ve to Ondansetro n. furosemide 2020- No [id number] 40mg Take 1 Univers 40 mg 6-25 - tablet by ity of tablet 00:00: 04:59 mouth [place] 00 :00 every Medical morning Branch and evening for 30 days. lipase-prot 2020- No [id number] 2{capsu Take 2 Univers ease-amylas 6-25 - le} capsules ity of e 00:00: 04:59 by mouth 3 [place] 12,000-38,0 00 :00 (three) Medic al 00 -60,000 times Branch unit daily with capsule meals for 30 days. lactobacill No [id number] .5mg Take 1 Univers us 6-25 07-26 tablet by ity of acidophilus 00:00: 04:59 mouth 2 [place] 00 :00 (two) Medical times Branch daily for 30 days. furosemide 2020- No [id number] 40mg Take 1 Univers 40 mg 6-25 -26 tablet by ity of tablet 00:00: 04:59 mouth [place] 00 :00 every Medical morning Branch and evening for 30 days. lipase-prot 2020- No [id number] 2{capsu Take 2 Univers ease-amylas 6-25 07-26 le} capsules ity of e 00:00: 04:59 by mouth 3 [place] 12,000-38,0 00 :00 (three) Medic al 00 -60,000 times Branch unit daily with capsule meals for 30 days. lactobacill 2020- No [id number] .5mg Take 1 Univers us 6-25 07-26 tablet by ity of acidophilus 00:00: 04:59 mouth 2 [place] 00 :00 (two) Medical times Branch daily for 30 days. vancomycin 2020- No [id number] 125mg Take 1 Univers 125 mg 6-25 07-06 capsule by ity of capsule 00:00: 04:59 mouth 4 [place] 00 :00 (four) Medical times Branch daily for 10 days. vancomycin No [id number] 125mg Take 1 Univers 125 mg 6-25 [...] Indication s: acute pain cephALEXin 2020- No [id number] 500mg Take 1 Univers 500 mg 10-03 capsule by ity of capsule 00:00: 04:59 mouth 4 [place] 00 :00 (four) Medical times Branch daily for 5 days. cephALEXin 2020- No [id number] 500mg Take 1 Univers 500 mg 10-03 [...] [place] mg 00 First dose Medical on [facility] Branch 10/01/20 at 0900, Until Discontinu ed, [...] IV ity of (PHENERGAN) 17:11: 19:59 Piggyback, [place] 12.5 mg in 58 :55 Q4HPRN, Medica [...] QHSPRN, [place] mg 57 Starting Medical [facility] Branch 09/29/20 at 2251, Until Discontinu ed, Routine, Insomnia D5W 0.45% 2020- No IV Univers NaCl 09-29 Infusion, ity of (1/2NS) 1 L 21:00: 21:15 at 100 [place] + KCL 20 00 :40 mL/hr, Medical mEq CONTINUOUS Branch , Starting [facility] 09/29/20 at 1600, Until Tue09/30/20 at 1615, Routine cholecalcif Yes 2000U 2,000 [facility] ers nuno 09-29 Units, ity of (vitamin 20:00: Oral, [place] D3) tablet 00 DAILY, Medical 2,000 Units First dose Br anch on [facility] 09/29/20 at 1500, Until Discontinu ed, Routine lactobacill Yes .5mg 0.5 mg, Uni vers us 09-29 Oral, BID, ity of acidophilus 14:15: First dose [place] tablet 0.5 00 on [facility] Medical mg 09/29/20 at Branch 0915, Until Discontinu ed, Routine KCL Yes 20meq 20 mEq, Univers (KLOR-CON 09-29 Oral, ity of M20) tablet 14:00: DAILY, [place] 20 mEq 00 First dose Medical (after Branch last reorder) on [facility] 09/29/20 at 0900, Until Discontinu ed, Routine lipase-prot Yes 2{capsu 2 capsule, Univers ease-amylas 09-29 le} Oral, TID ity of e (CREON) 08:45: MEALS, [place] 12,000-38,0 00 First dose Me dical 00 -60,000 on [facility] Branch unit 09/29/20 at capsule 2 [...] :12 CONTINUOUS Medic al , Starting Branch [facility] 09/29/20 at 0245, Until Tue09/29/20 at 1449, Routine NaCl 0.9% 2020- No 2000mL at 999 Uni vers (NS) IV 09-29 mL/hr, ity of infusion 07:45: 09:04 Intravenou [place] 2,000 mL 00 :00 s, ONCE, 1 Medic al dose, [facility] 09/29/20 at 0245, Routine FENTanyl PF 2020- No 50ug 50 mcg, Un marline (SUBLIMAZE 09-29 Slow IV ity o f (PF)) 07:30: 06:27 Push, [place] injection 00 :00 ONCE, 1 Medical 50 mcg dose, [facility] 09/29/20 at 0230, Routine piperacilli 2020- No [...] First dose Medic al NaCl 0.9% on [facility] Branch (NS) 100 mL 09/29/20 at [...] injection 4 17 Starting Medi molly mg [facility] 09/29/20 at 0142, Until Discontinu ed, Routine, Nausea and Vomiting (N/V) iopamidol 2020- No [id number] 100mL 100 mL, Univers (ISOVUE 09-29 Intravenou [...] for Pain (scale 4-6). acetaminoph 2020-0 Yes [id number] 1{tbl} Take 1 Univers en-codeine 5-02 tablet by ity of 300-30 mg 00:00: mouth [place] tablet 00 every 4 Medical (four) Branch hours as needed for Pain (scale 4-6). acetaminoph 2020-0 Yes [id number] 1{tbl} Take 1 Univers en-codeine 5-02 tablet by ity of 300-30 mg 00:00: mouth [place] tablet 00 every 4 Medical (four) Branch hours as needed for Pain (scale 4-6). acetaminoph 2020-0 Yes [id number] 1{tbl} Take 1 Univers en-codeine 5-02 tablet by ity of 300-30 mg 00:00: mouth [place] tablet 00 every 4 Medical (four) Branch hours as needed for Pain (scale 4-6). lactulose 2019-0 2020- No [id number] 30mL Take 30 mL Univers 10 gram/15 5- 06-02 by mouth 2 it y of mL oral 00:00: 04:59 (two) [place] solution 00 :00 times Medical daily for Branch 30 days. pantoprazol 2019-0 2020- No [id number] 40mg Take 1 Univers e 40 mg EC 5- 06-02 tablet by ity of tablet 00:00: 04:59 mouth [place] 00 :00 daily for Medical 30 days. Branch lactulose 2019-0 2020- No [id number] 30mL Take 30 mL Univers 10 gram/15 5-02 06-02 by mouth 2 it y of mL oral 00:00: 04:59 (two) [place] solution 00 :00 times Medical daily for Branch 30 days. pantoprazol 2019-0 2020- No [id number] 40mg Take 1 Univers e 40 mg EC 5-02 06-02 tablet by ity of tablet 00:00: 04:59 mouth [place] 00 :00 daily for Medical 30 days. Branch propranolol 2019-0 2020- No [id number] 10mg Take 1 Univers 10 mg 5-02 [...] en-Codeine en-Codeine [place] Kyle - #3 #3 [facility] Immunizations Ordered Filled Immunization Date Status Comments [facility] e Immunization Name Name Pneumococcal 2020-10-03 Completed [...] Completed Unive rsity of MODERNA VACCINE 00:00:00 [facility] ical Branch SARS-COV-2 COVID-19 2020-08-08 Completed Unive rsity of MODERNA VACCINE 00:00:00 [facility] ical Branch SARS-COV-2 COVID-19 2020-08-08 Completed Unive rsity of MODERNA VACCINE 00:00:00 [facility] ical Branch SARS-COV-2 COVID-19 2020-08-08 Completed Unive rsity of MODERNA VACCINE 00:00:00 [facility] ical Branch SARS-COV-2 COVID-19 2020-08-08 Completed Unive rsity of MODERNA VACCINE 00:00:00 [facility] ical Branch SARS-COV-2 COVID-19 2020-08-08 Completed Unive rsity of MODERNA VACCINE 00:00:00 [facility] ical Branch SARS-COV-2 COVID-19 2020-08-08 Completed Unive rsity of MODERNA VACCINE 00:00:00 [facility] SARS-COV-2 COVID-19 2020-08-08 Completed Unive rsity of MODERNA VACCINE 00:00:00 [facility] SARS-COV-2 COVID-19 2020-07-11 Completed Unive rsity of MODERNA VACCINE 00:00:00 [facility] SARS-COV-2 COVID-19 2020-07-11 Completed Unive rsity of MODERNA VACCINE 00:00:00 [facility] SARS-COV-2 COVID-19 2020-07-11 Completed Unive rsity of MODERNA VACCINE 00:00:00 [facility] SARS-COV-2 COVID-19 2020-07-11 Completed Unive rsity of MODERNA VACCINE 00:00:00 [facility] SARS-COV-2 COVID-19 2020-07-11 Completed Unive rsity of MODERNA VACCINE 00:00:00 [facility] SARS-COV-2 COVID-19 2020-07-11 Completed Unive rsity of MODERNA VACCINE 00:00:00 [facility] SARS-COV-2 COVID-19 2020-07-11 Completed Unive rsity of MODERNA VACCINE 00:00:00 [facility] SARS-COV-2 COVID-19 2020-07-11 Completed Unive rsity of MODERNA VACCINE 00:00:00 [facility] Influenza Virus 2019-08-11 Completed Universit y of Vaccine [place] .5 mL 00:00:00 [facility] 6+ MO Branch Influenza Virus 2019-08-11 Completed Universit y of Vaccine [place] .5 mL 00:00:00 [place] [facility] 6+ MO Branch Influenza Virus 2019-08-11 Completed Universit y of Vaccine [place] .5 mL 00:00:00 [place] [facility] IM 6+ MO Branch Influenza Virus 2019-08-11 Completed Universit y of Vaccine [place] .5 mL 00:00:00 [place] [facility] IM 6+ MO Branch Influenza Virus 2019-08-11 Completed Universit y of Vaccine [place] .5 mL 00:00:00 [place] [facility] IM 6+ MO Branch Influenza Virus 2019-08-11 Completed Universit y of Vaccine [place] .5 mL 00:00:00 [facility] 6+ MO Branch Influenza Virus 2019-08-11 Completed Universit y of Vaccine [place] .5 mL 00:00:00 [place] [facility] IM 6+ MO Branch Influenza Virus 2019-08-11 Completed Universit y of Vaccine [place] .5 mL 00:00:00 [place] [facility] IM 6+ MO Branch Influenza Virus 2019-08-11 Completed Universit y of Vaccine [place] .5 mL 00:00:00 [place] [facility] IM 6+ MO Branch Influenza Virus 2019-08-11 Completed Universit y of Vaccine [place] .5 mL 00:00:00 [place] [facility] IM 6+ MO Branch Influenza Virus 2019-08-11 Completed Universit y of Vaccine [place] .5 mL 00:00:00 [place] [facility] IM 6+ MO Branch Vital Signs Vital Name Observation Time Observation Value Comments Source Systolic blood 2021-04-02 18:55:00 138 mm[Hg] Univer sity of pressure [facility] Diastolic blood 2021-04-02 18:55:00 104 mm[Hg] Unive rsity of pressure [facility] Heart rate 2021-04-02 18:55:00 74 /min Universi ty [facility] Body temperature 2021-04-02 18:55:00 36.78 Sandee [facility] ersity of [facility] Respiratory rate 2021-04-02 18:55:00 18 /min Univ ersity [facility] Body weight 2021-04-02 18:55:00 122.471 kg Universi ty [facility] BMI 2021-04-02 18:55:00 46.35 [facility] in 2021-04-02 18:55:00 97 /min University of Arterial blood by [facility] Pulse oximetry Branch Systolic blood 2020-10-03 17:23:00 132 mm[Hg] Univer sity of pressure [facility] Diastolic blood 2020-10-03 17:23:00 56 mm[Hg] Unive rsity of pressure [facility] Heart rate 2020-10-03 17:23:00 88 /min Universi ty [facility] Body temperature 2020-10-03 17:23:00 36.94 Sandee Univ ersity of [facility] Respiratory rate 2020-10-03 17:23:00 18 /[facility] in 2020-10-03 17:23:00 94 /min University of Arterial blood by [place] Medi molly Pulse oximetry Branch Body weight 2020-09-30 08:11:00 121.473 kg Universi ty of [place] [facility] BMI 2020-09-30 08:11:00 47.44 kg/m2 Universi ty of [place] [facility] Body height 2020-09-29 03:33:00 160 cm Universi ty of [place] [facility] Diastolic blood 2019-08-11 20:04:00 44 mm[Hg] Unive rsity of pressure [facility] Heart rate 2019-08-11 20:04:00 70 /min Universi ty of [place] [facility] Body temperature 2019-08-11 20:04:00 36.61 Sandee Univ ersity of [place] [facility] Respiratory rate 2019-08-11 20:04:00 18 /min Univ ersity of [place] [facility] Oxygen saturation in 2019-08-11 20:04:00 91 /min University of Arterial blood by [facility] Pulse oximetry Branch Systolic blood 2019-08-11 20:04:00 107 mm[Hg] Univer sity of pressure [facility] Body height 2019-08-10 08:01:00 162.6 cm Universi ty of [place] [facility] Body weight 2019-08-10 08:01:00 119.296 kg Universi ty of [place] [facility] BMI 2019-08-10 08:01:00 45.14 kg/m2 Universi ty of [place] [facility] Diastolic blood 2019-08-11 20:04:00 44 mm[Hg] Unive rsity of pressure [place] [facility] Heart rate 2019-08-11 20:04:00 70 /min Universi ty of [place] [facility] Body temperature 2019-08-11 20:04:00 36.61 Sandee Univ ersity of [place] [facility] Respiratory rate 2019-08-11 20:04:00 18 /min Univ ersity of [place] [facility] Oxygen saturation in 2019-08-11 20:04:00 91 /min University of Arterial blood by [facility] Pulse oximetry Branch Systolic blood 2019-08-11 20:04:00 107 mm[Hg] Univer sity of pressure [facility] Body height 2019-08-10 08:01:00 162.6 cm Universi ty of [place] [facility] Body weight 2019-08-10 08:01:00 119.296 kg Universi ty of [place] [facility] BMI 2019-08-10 08:01:00 45.14 kg/m2 Universi ty [facility] [place] [facility] Procedures Procedure Date / Time Performing Clinician Source Performed XR KNEE 3 VW LEFT 2021-04-02 20:10:39 Azalea Green [facility] CONSENT/REFUSAL FOR 2021-04-02 17:59:31 Doctor Unassigned, [facility] DIAGNOSIS AND TREATMENT [place] [facility] ASSIGNMENT OF BENEFITS 2021-03-10 20:29:46 Doctor Unassigned, [facility] [place] Medical Branch PHOSPHORUS 2020-10-03 08:52:00 Kim Teixeiraherine [facility] MAGNESIUM 2020-10-03 08:52:00 Puneet [facility] COMP. METABOLIC PANEL 2020-10-03 08:52:00 Puneet [facility] ([id number]) [facility] CBC WITH DIFF 2020-10-03 08:52:00 Puneet [facility] COMP. METABOLIC PANEL 2020-10-02 08:39:00 Kim Teixeiraherine [facility] ([id number]) [facility] CBC WITH DIFF 2020-10-02 08:39:00 Puneet [facility] US DUPLEX VENOUS ARM LEFT 2020-10-01 16:22:58 Brenda Teixeira [facility] - BY VASCULAR LAB [facility] COMP. METABOLIC PANEL 2020-10-01 07:45:00 Alka Tomasa [facility] ([id number]) [facility] CBC WITH DIFF 2020-10-01 07:45:00 Tomasa Escamilla [facility] TROPONIN I 2020-09-30 10:56:00 Marco Levy [facility] COMP. METABOLIC PANEL 2020-09-30 10:56:00 Wes Brito [facility] ([id number]) [facility] CBC WITH DIFF 2020-09-30 10:56:00 Wes Brito [facility] N-TERMINAL PRO-BNP 2020-09-30 08:05:00 Wes [facility] OCCULT (GUAIAC) BLOOD 2020-09-30 02:10:00 Wes Brito [facility] FECAL LEUKOCYTES 2020-09-30 02:10:00 Wes Brito [facility] CLOSTRIDIUM DIFFICILE 2020-09-30 02:10:00 Millie lan [facility] FECAL PATHOGENS BY PCR 2020-09-30 02:10:00 Wes Brito [facility] POCT GLUCOSE (AUTOMATED) 2020-09-30 00:35:00 Rene Evans [facility] BASIC METABOLIC PANEL 2020-09-29 21:11:00 Wes Brito [facility] (NA, K, CL, CO2, GLUCOSE, Medica l Branch BUN, CREATININE, CA) HEMOGLOBIN 2020-09-29 21:11:00 Alka Tomasa [facility] TRANSTHORACIC ECHO (TTE) 2020-09-29 16:03:00 Marco Levy [facility] HB ECG ROUTINE & RHYTHM 2020-09-29 11:18:58 Wes Brito [facility] OSMOLALITY URINE 2020-09-29 08:56:00 Millie [facility] URINE CULTURE 2020-09-29 08:56:00 Millie [facility] SODIUM, URINE RANDOM 2020-09-29 08:56:00 Wes Brito [facility] PROTEIN CREAT RATIO URINE 2020-09-29 08:56:00 Wes Brito [facility] BLOOD CULTURE SCREEN 2020-09-29 08:32:00 Wes Brito [facility] LACTIC ACID WHOLE BLOOD 2020-09-29 08:32:00 Millie lan [facility] VITAMIN B12, LEVEL 2020-09-29 08:31:00 Wes [facility]o [facility] C-REACTIVE PROTEIN 2020-09-29 08:31:00 Wes [facility]o [facility] IRON PANEL 2020-09-29 08:31:00 Millie Adnan [facility] SEDIMENTATION RATE 2020-09-29 08:31:00 [facility] DIFF CONSULT 2020-09-29 08:31:00 Millie lan [facility] CBC WITH DIFF 2020-09-29 08:31:00 Millie [facility] PROTHROMBIN TIME / INR 2020-09-29 08:31:00 Wes Brito [facility] N-TERMINAL PRO-BNP 2020-09-29 08:31:00 Wes Brito [facility] VITAMIN D, 25-OH 2020-09-29 08:31:00 Millie [facility] PROCALCITONIN 2020-09-29 08:31:00 Millie [facility] COVID-19 (ID NOW RAPID 2020-09-29 05:10:00 Rene Evans [facility] TESTING) Medical Branch LAB ONLY COVID 2020-09-29 05:10:00 Rene Evans [facility] INTERPRETATION [facility] CT ABDOMEN PELVIS W 2020-09-29 04:56:31 Rene Evans [facility] CONTRAST [facility] Branch URINALYSIS 2020-09-29 04:19:00 Rene Evans [facility] PHOSPHORUS 2020-09-29 03:54:00 Millie lan [facility] CREATINE KINASE 2020-09-29 03:54:00 Millie [facility] URIC ACID 2020-09-29 03:54:00 Millie [facility] LIPASE 2020-09-29 03:54:00 Rene Evans [facility] MAGNESIUM 2020-09-29 03:54:00 Millie [facility] FERRITIN SERUM 2020-09-29 03:54:00 Millie [facility] TROPONIN I 2020-09-29 03:54:00 Marco Levy [facility] THYROID STIMULATING 2020-09-29 03:54:00 Wes Brito [facility] HORMONE [facility] COMP. METABOLIC PANEL 2020-09-29 03:54:00 Rene Evans [facility] ([id number]) Medical [place] LIPID PANEL ([id number])(TOTAL 2020-09-29 03:54:00 Wes Brito [facility] CHOLESTEROL, [facility] TRIGLYCERIDES, HDL) CBC WITH DIFF 2020-09-29 03:54:00 Rene Evans [facility] GLYCOSYLATED HEMOGLOBIN 2020-09-29 03:54:00 Millie [facility] (A1C) [facility] N-TERMINAL PRO-BNP 2020-09-29 03:54:00 Wes [facility] CONSENT/REFUSAL FOR 2020-09-29 03:18:51 Doctor Unassigned, [facility] DIAGNOSIS AND TREATMENT [place] [facility] NOTICE OF PRIVACY 2020-09-29 03:18:30 Doctor Unassigned, [facility] PRACTICES [place] [facility] [place] [facility] ABDOMEN PELVIS W 2019-08-11 14:50:46 Corby Ca [facility] CONTRAST [facility] COMP. METABOLIC PANEL 2019-08-11 08:00:00 Wes Brito [facility] ([id number]) [facility] CBC WITH DIFFERENTIAL 2019-08-11 08:00:00 Millie [facility] CBC WITH DIFFERENTIAL 2019-08-11 08:00:00 Millie lan [facility] XR SMALL BOWEL SERIES 2019-08-10 21:18:47 Valente Piña [facility] XR ABDOMEN 1 VW 2019-08-10 11:52:39 Millie [facility] PHOSPHORUS 2019-08-10 11:11:00 Millie [facility] CREATINE KINASE 2019-08-10 11:11:00 Millie [facility] AMYLASE 2019-08-10 11:11:00 Millie [facility] LIPASE 2019-08-10 11:11:00 Millie, [facility] Branch MAGNESIUM 2019-08-10 11:11:00 Wes Brito [facility] TEST, SERUM 2019-08-10 11:11:00 Wes Brito [facility] THYROID STIMULATING 2019-08-10 11:11:00 [facility] COMP. METABOLIC PANEL 2019-08-10 11:11:00 Wes Brito [facility] ([id number]) [facility] LIPID PANEL (98933)(TOTAL 2019-08-10 11:11:00 Wes Brito [facility] CHOLESTEROL, [facility] TRIGLYCERIDES, HDL) SEDIMENTATION RATE 2019-08-10 11:11:00 Wes [facility] CBC WITH DIFFERENTIAL 2019-08-10 11:11:00 Wes Brito [facility] GLYCOSYLATED HEMOGLOBIN 2019-08-10 11:11:00 Wes Brito [facility] (A1C) [facility] PROTHROMBIN TIME / INR 2019-08-10 11:11:00 Wes Brito [facility] CORONAVIRUS COVID-19 2019-08-10 09:04:00 Wes Brito [facility] TESTING [facility] Encounters Start End Encounter Admission Attending Care Care Encounter Source Date/Time Date/Time Type Type Clinicians Facility Department ID 2021-02-[address] [facility] [id number] Univers 02:25:27 ity [facility] 2021-04-07 2021-04-07 Letter Orthopedic [facility] 1.2.840.114 [id number] Univers 00:00:00 00:00:00 (Out) Clinic SPECIALTY 350.1.13.10 ity of CARE 4.2.7.2.686 [facility] AT [phone] Mo mariacarol JBFausto [address] [place] [address] [place] 2021-04-02 2021-04-02 Emergency X BEATRIZ NYSASHA ERT [id number] Univers 12:58:00 15:25:00 AZALEA [facility] 2021-04-02 2021-04-02 [facility] 1.2.840.114 [id number] Univers 12:58:00 15:25:00 Azalea [facility] 350.1.13.10 ity of [place] 4.2.7.2.686 [place] [facility] [phone] [facility] 084 [place] 2021-03-11 2021-03-11 Telephone NancyVERONIQUE 1.2.426.508 [id number] Univers 00:00:00 00:00:00 Frances GONZALO 350.1.13.10 it y of [facility] 4.2.7.2.686 Quang as [id number] [facility] 019 [place] 2021-03-10 2021-03-[address] [facility] [id number] Univers 14:45:00 14:51:40 LEXIE ity [facility] 2021-03-10 2021-03-[address] [facility] [id number] Univers 14:45:00 14:45:00 [id number] ity [facility] 2021-03-10 2021-03-10 Laboratory Only, Ang Db Test [facility] 1.2.8 40.114 [id number] Univers 14:29:53 14:44:53 Only Unknown, Attending HEALTH 350.1.13.10 ity of [place] 4.2.7.2.686 Quang as MARINA?BLEA [phone] [address] MEDICAL OFFICE BUILDING 2021-03-10 2021-03-10 Orders Doctor VERONIQUE 1.2.840.114 [id number] Univers 00:00:00 00:00:00 Only Unassigned, GONZALO 350.1.13.10 ity of [place] [facility] 4.2.7.2.686 Quang as [phone] [facility] 009 [place] 2021-02-18 2021-02-20 Inpatient JAIME, [facility] [id number] 623 [place] 00:00:00 00:00:[address]ER[address] 2021-02-03 2021-02-04 Emergency [facility]RT [id number] Univers 21:10:00 03:21:00 GARTH ity [facility] 2020-10-21 2020-10-27 Inpatient SYLVIA, [facility] [id number] 7606 [place] 00:00:00 00:00:00 ROBERTH 980 [address] i 2020-10-06 2020-10-06 Transition Jocelyne [place] 1.2.840.114 [id number] [facility] 00:00:00 00:00:00 of Care Madiha Sotelo 350.1.13.10 i ty of [place] 4.2.7.2.686 [place] [id number] [facility] 403 [address] 2020-09-28 2020-10-03 [facility] Rene Evans [facility] 1.2.840. 114 [id number] [facility] 22:23:00 13:05:00 Encounter Wes Britoton 350.1.13.10 ity of [place] 4.2.7.2.686 [place] [id number] [facility] 081 Branch 2020-09-28 2020-09-28 Orders Doctor VERONIQUE 1.2.840.[id number] [place] [address] 00:00:00 00:00:00 Only Unassigned, GONZALO 350.1.13.10 [place] 4.2.7.2.686 Quang as [id number] [facility] 009 Branch 2020-09-09 2020-09-12 Inpatient VIKTOR BILLINGS [facility] [id number] 21355 [place] 00:00:00 00:00:00 462 [address] i 2020-08-08 2020-08-08 Outpatient Sami GERMAN, [facility] [id number] Univers 15:40:00 15:40:00 TERRI ity of [facility] 2020-07-11 2020-07-[address] [facility] [id number] Univers 15:40:00 15:40:00 ity [facility] 2020-06-09 2020-06-22 Inpatient VIKTOR BILLINGS [facility] [id number] 63572 [place] 00:00:00 00:00:00 836 Method i 2020-03-19 2020-03-23 [facility] [id number] 848 [place] 00:00:00 00:00:00 [facility] 742 Method i 2020-03-14 2020-03-18 Inpatient ELANAR, [facility] [id number] [place] [address] 00:00:00 00:00:00 CHERI [address] 2020-02-13 2020-02-13 Laboratory Lab, [facility] [place] 1.2.840.114 [id number] 10:22:10 10:42:10 Only Fam Pob I Health 350.1.13.10 [place] 4.2.7.2.686 Professio [phone] nal [address] 2020-02-13 2020-02-13 Laboratory Lab, [facility] Fam Pob I [place] 1.2 840.114 [id number] [facility] 10:22:10 10:42:10 Only Dulce Mari A Health 350.1.13.10 ity of [place] 4.2.7.2.686 Quang as Professio [phone] Mo dical [facility] 044 [place] Office [address] One 2019-09-28 2019-09-28 [facility] [id number] 09:00:00 09:00:00 [facility] ent Clinics 2019-09-18 2019-09-18 [facility] [id number] 09:30:00 09:30:00 [facility] ent Clinics 2019-08-14 2019-08-14 Transition Jocelyne Alexandra 1.2.840.114 [id number] 00:00:00 00:00:00 of Care Jovanny Sotelo 350.1.13.10 [place] 4.2.7.2.686 [id number] [facility] 2019-08-14 2019-08-14 Transition Jocelyne Alexandra 1.2.840.114 [id number] [facility] 00:00:00 00:00:00 of Care Jovanny Sotelo 350.1.13.10 ity of [place].2.[place] [id number] [address] [place] 2019-08-10 2019-08-11 [facility] 1.2.098.516 [id number] 02:55:00 16:09:00 Encounter Wes Amin 350.1.13.10 [place] 4.2.7.2.686 [place] [id number] 081 2019-08-10 2019-08-11 Inpatient U ANALILIA BRITO [facility] [id number] Univers 02:55:00 16:09:00 LAN [facility] 2019-08-10 2019-08-11 [facility] Millie NYSASHA 1.2.016.806 [id number] Univers 02:55:00 16:09:00 Encounter Wes [place] [facility].1.13.10 [facility] 4.2.7.2.686 [facility] [phone] [address] Results Test Description Test Time Test Comments Results Result Comments Source MAGNESIUM 2020-10-03 09:34:08 Test Item Value Reference Range Interpretation Comme nts MAGNESIUM (test code = 2711113455) 1.4 mg/dL 1.7-2.4 L Lab Interpretation (test code = 76775-1) Abnormal [facility] (63866)2020-10-03 09:33:48 Test Item Value Reference Range Interpretation Comments NA (test code = 136 mmol/L 135-145 5355062541) K (test code = 3.3 mmol/L 3.5-5.0 L 1961296220) CL (test code = 100 mmol/L 98-108 8695362328) CO2 TOTAL (test code = 33 mmol/L 23-31 H 4628436639) AGAP (test code = 2-16 9586187303) BUN (test code = 3 mg/dL 7-23 L 9912692195) GLUCOSE (test code = 95 mg/dL 70-110 2895345465) CREATININE (test code = 0.47 mg/dL 0.50-1.04 L 0766151393) TOTAL BILI (test code = 1.5 mg/dL 0.1-1.1 H 4720179258) CALCIUM (test code = 8.1 mg/dL 8.6-10.6 L 3481027252) T PROTEIN (test code = 5.9 g/dL 6.3-8.2 L 0020723585) ALBUMIN (test code = 2.9 g/dL 3.5-5.0 L 8043475830) ALK PHOS (test code = 115 U/L 34-122 7969636343) ALTv (test code = 24 U/L 5-35 1742-6) AST(SGOT) (test code = 35 U/L 13-40 8528819341) eGFR (test code = mL/min/1.73m2 6547933389) SNOW (test code = SNOW) Association of [...] tests). Lab Interpretation Abnormal (test code = 85325-8) [facility]2021-06-25 09:33:28 Test Item Value Reference Range Interpretation Comments PHOSPHORUS (test code = 0885043650) 2.8 mg/dL 2.5-5.0 Lab Interpretation (test code = Normal 57764-3) [facility] WITH [id number] 09:31:46 Test Item Value Reference Range Interpretation [...] (test code = 53.8 fL 39.0-49.9 H 87137-0) RDW-CV (test code = 19.9 % 12.0-15.5 H 788-0) PLT (test code = See_Comment L [Automated 777-3) message] The sy stem which generated this result transmitted reference range : 166 - 358 10*3/ ?L. The reference r davi was not used to interpret this result as normal/abnormal . MPV (test code = 10.9 fL 9.5-12.9 63031-4) IPF % (test code = 3.6 % 1.3-7.7 Platelet count 0920389878) measured by fluorescence method. NRBC/100 WBC (test See_Comment [Automat ed code = 7612215603) message] The system which generated this result transmitted reference range : 0.0 - 10.0 /100 WBCs. The refer ence range was not u sed to interpret th is result as normal/abnormal . NRBC x10^3 (test code See_Comment [Auto mated = 8959528050) message] The s ystem which generated this result transmitted reference range : 10*3/?L. The reference range was not used to interpret this result as normal/abnormal . GRAN MAT (NEUT) % 68.1 % (test code = 770-8) IMM GRAN % (test code 1.10 % = 6734013391) LYMPH % (test code = 15.5 % 736-9) MONO % (test code = 11.3 % 5905-5) EOS % (test code = 3.4 % 713-8) BASO % (test code = 0.6 % 706-2) GRAN MAT x10^3(ANC) 2.42 10*3/uL 1.88-7.09 (test code = 3885896374) IMM GRAN x10^3 (test 0.04 10*3/uL 0.00-0.06 code = 7772690550) LYMPH x10^3 (test code 0.55 10*3/uL 1.32-3.29 L = 731-0) MONO x10^3 (test code 0.40 10*3/uL 0.33-0.92 = 742-7) EOS x10^3 (test code = 0.12 10*3/uL 0.03-0.39 711-2) BASO x10^3 (test code <0.03 0.01-0.07 = 704-7) Lab Interpretation Abnormal (test code = 30702-1) [facility] WITH [id number] 10:47:09 Test Item Value Reference Range Interpretation [...] (test code = 52.2 fL 39.0-49.9 H 93366-2) RDW-CV (test code = 18.6 % 12.0-15.5 H 788-0) PLT (test code = See_Comment L [Automated 777-3) message] The sy stem which generated this result transmitted reference range : 166 - 358 10*3/ ?L. The reference r davi was not used to interpret this result as normal/abnormal . MPV (test code = 10.1 fL 9.5-12.9 69425-5) IPF % (test code = 3.2 % 1.3-7.7 Platelet count 9343280210) measured by fluorescence method. NRBC/100 WBC (test See_Comment [Automat ed code = 0848529856) message] The system which generated this result transmitted reference range : 0.0 - 10.0 /100 WBCs. The refer ence range was not u sed to interpret th is result as normal/abnormal . NRBC x10^3 (test code See_Comment [Auto mated = 8457521661) message] The s ystem which generated this result transmitted reference range : 10*3/?L. The reference range was not used to interpret this result as normal/abnormal . GRAN MAT (NEUT) % 65.1 % (test code = 770-8) IMM GRAN % (test code 1.20 % = 9140867820) LYMPH % (test code = 16.9 % 736-9) MONO % (test code = 11.5 % 5905-5) EOS % (test code = 4.5 % 713-8) BASO % (test code = 0.8 % 706-2) GRAN MAT x10^3(ANC) 1.58 10*3/uL 1.88-7.09 L (test code = 2426953293) IMM GRAN x10^3 (test 0.03 10*3/uL 0.00-0.06 code = 5422725623) LYMPH x10^3 (test code 0.41 10*3/uL 1.32-3.29 L = 731-0) MONO x10^3 (test code 0.28 10*3/uL 0.33-0.92 L = 742-7) EOS x10^3 (test code = 0.11 10*3/uL 0.03-0.39 711-2) BASO x10^3 (test code <0.03 0.01-0.07 = 704-7) POLYCHROMASIA (test 2+ See_Comment [Automa josemanuel code = 75348-9) message] The system which generated this result transmitted reference range : 2+. The referen ce range was not u sed to interpret th is result as normal/abnormal . LG GRAN LYMPHS (test Rare Rare code = 5189894738) Lab Interpretation Abnormal (test code = 92650-6) [facility]. METABOLIC PANEL (07471)2020-10-02 10:19:28 Test Item Value Reference Range Interpretation Comments NA (test code = 135 mmol/L 135-145 3713747724) K (test code = 3.4 mmol/L 3.5-5.0 L 2223596628) CL (test code = 104 mmol/L 98-108 8534736138) CO2 TOTAL (test code = 27 mmol/L 23-31 4649417554) AGAP (test code = 2-16 4330026786) BUN (test code = 4 mg/dL 7-23 L 2352923767) GLUCOSE (test code = 97 mg/dL 70-110 7398727847) CREATININE (test code = 0.45 mg/dL 0.50-1.04 L 5081445726) TOTAL BILI (test code = 1.7 mg/dL 0.1-1.1 H 6395545521) CALCIUM (test code = 8.2 mg/dL 8.6-10.6 L 0314391378) T PROTEIN (test code = 6.0 g/dL 6.3-8.2 L 1360183613) ALBUMIN (test code = 3.1 g/dL 3.5-5.0 L 3621187177) ALK PHOS (test code = 120 U/L 34-122 8358727700) ALTv (test code = 26 U/L 5-35 1742-6) AST(SGOT) (test code = 39 U/L 13-40 2557117901) eGFR (test code = mL/min/1.73m2 2382459608) SNOW (test code = SNOW) Association of [...] tests). Lab Interpretation Abnormal (test code = 37952-0) [facility] COVID [id number] 02:50:27COVID DMT InterpretationInterpretation/Recommendations: Molecular NAAT Tests for [...] COVID-19 testing the patient has had at [facility], including molecular NAAT testing (more commonly known as PCR testing and Rapid ID Now testing) and antibody testing. It does not take into account any testing that a patient has had outside of the [facility] medical record. [facility] LABORATORY SERVICESCOVID Resu oghCMON-PqJ-7 NAAT (no units) ? ? Date ? Value ? 02/13/2020 ? Not Detected ? SARS-CoV-2 Rapid ID NOW (no units) ? ? Date ? Value ? 09/29/2020 ? Not Detected ? ? ? 08/10/2019 ? Not Detected ? [facility] WITH [id number] 10:31:29 Test Item Value Reference Range Interpretation [...] (test code = 52.3 fL 39.0-49.9 H 37725-2) RDW-CV (test code = 18.4 % 12.0-15.5 H 788-0) PLT (test code = See_Comment LL [Automated 777-3) message] The sy stem which generated this result transmitted reference range : 166 - 358 10*3/ ?L. The reference r davi was not used to interpret this result as normal/abnormal . MPV (test code = 11.2 fL 9.5-12.9 78169-5) IPF % (test code = 3.9 % 1.3-7.7 Platelet count 3661218159) measured by fluorescence method. NRBC/100 WBC (test See_Comment [Automat ed code = 8551581651) message] The system which generated this result transmitted reference range : 0.0 - 10.0 /100 WBCs. The refer ence range was not u sed to interpret th is result as normal/abnormal . NRBC x10^3 (test code <0.01 See_Comment [Auto mated = 9340570025) message] The s ystem which generated this result transmitted reference range : 10*3/?L. The reference range was not used to interpret this result as normal/abnormal . GRAN MAT (NEUT) % 57.5 % (test code = 770-8) IMM GRAN % (test code 0.50 % = 9918312541) LYMPH % (test code = 20.7 % 736-9) MONO % (test code = 13.3 % 5905-5) EOS % (test code = 6.9 % 713-8) BASO % (test code = 1.1 % 706-2) GRAN MAT x10^3(ANC) 1.08 10*3/uL 1.88-7.09 L (test code = 9030340471) IMM GRAN x10^3 (test <0.03 0.00-0.06 code = 4932091047) LYMPH x10^3 (test code 0.39 10*3/uL 1.32-3.29 L = 731-0) MONO x10^3 (test code 0.25 10*3/uL 0.33-0.92 L = 742-7) EOS x10^3 (test code = 0.13 10*3/uL 0.03-0.39 711-2) BASO x10^3 (test code <0.03 0.01-0.07 = 704-7) BASO STIPPLING (test Present A code = 703-9) ELLIPTO/OVAL (test 2+ See_Comment A [Automat ed code = 41594-1) message] The system which generated this result transmitted reference range : (none). The reference range was not used to interpret this result as normal/abnormal . POLYCHROMASIA (test 2+ See_Comment [Automa josemanuel code = 73622-5) message] The system which generated this result transmitted reference range : 2+. The referen ce range was not u sed to interpret th is result as normal/abnormal . Lab Interpretation Abnormal (test code = 62993-7) [facility] (21732)2020-10-01 09:19:22 Test Item Value Reference Range Interpretation Comments NA (test code = 135 mmol/L 135-145 0859151211) K (test code = 4.0 mmol/L 3.5-5.0 0057373821) CL (test code = 107 mmol/L 98-108 3699687144) CO2 TOTAL (test code = 24 mmol/L 23-31 8137428326) AGAP (test code = 2-16 3567541729) BUN (test code = 7 mg/dL 7-23 6513198566) GLUCOSE (test code = 93 mg/dL 70-110 3824945340) CREATININE (test code = 0.47 mg/dL 0.50-1.04 L 1746364087) TOTAL BILI (test code = 1.6 mg/dL 0.1-1.1 H 0700861624) CALCIUM (test code = 8.1 mg/dL 8.6-10.6 L 6493239186) T PROTEIN (test code = 5.8 g/dL 6.3-8.2 L 0834367393) ALBUMIN (test code = 2.8 g/dL 3.5-5.0 L 0840014149) ALK PHOS (test code = 106 U/L 34-122 0303164646) ALTv (test code = 23 U/L 5-35 1742-6) AST(SGOT) (test code = 39 U/L 13-40 9450904815) eGFR (test code = mL/min/1.73m2 9993097777) SNOW (test code = SNOW) Association of [...] tests). Lab Interpretation Abnormal (test code = 27364-1) [facility] [id number] 20:47:45 Test Item Value Reference Range Interpretation Comments TROPONIN I (test 0.002 ng/mL See_Comment [Automated code = 3138008283) message] The system which generated this result [...] ? Lab Interpretation Normal (test code = 40211-1) [facility] [id number] 19:11:57 Test Item Value Reference Range Interpretation Comments URINE CULTURE (test code <10,000 CFU/mL = 630-4) Gram-Positive Cocci [facility] Taylor[facility]EC[facility] PATHOGENS BY [id number] 18:17:03 Test Item Value Reference Range Interpretation Comments Campylobacter (jejuni, Negative Negative, coli and upsaliensis) Indeterminate, (test code = 35829-1) See comment Plesiomonas shigelloides Negative Negative, (test code = 99508-3) Indeterminate, See comment Salmonella (test code = Negative Negative, 36237-7) Indeterminate, See comment Yersinia enterocolitica Negative Negative, (test code = 71865-0) Indeterminate, See comment Vibrio (test code = Negative Negative, 34066-5) Indeterminate, See comment Vibrio cholerae (test Negative Negative, code = 38544-5) Indeterminate, See comment Enteroaggregative E. Negative Negative, coli (EAEC) (test code = Indeterminate, 97679-6) See comment Enteropathogenic E. coli Negative Negative, N/A, (EPEC) (test code = Indeterminate, 96004-4) See comment Enterotoxigenic E. coli Negative Negative, (ETEC) (test code = Indeterminate, 60079-0) See comment Shiga toxin-Producing E. Negative Negative, coli (STEC) (test code = Indeterminate, 97260-7) See comment Shigella/Enteroinvasive Negative Negative, E. coli (EIEC) (test Indeterminate, code = 06741-9) See comment Cryptosporidium (test Negative Negative, code = 70939-6) Indeterminate, See comment Cyclospora cayetanensis Negative Negative, (test code = 56151-1) Indeterminate, See comment Entamoeba histolytica Negative Negative, (test code = 92786-2) Indeterminate, See comment Giardia lamblia (test Negative Negative, code = 99320-9) Indeterminate, See comment Adenovirus F 40/41 (test Negative Negative, code = 43389-9) Indeterminate, See comment Astrovirus (test code = Negative Negative, 01748-1) Indeterminate, See comment Norovirus GI/GII (test Negative Negative, code = 92596-6) Indeterminate, See comment Rotavirus A (test code = Negative Negative, 66560-5) Indeterminate, See comment Sapovirus (test code = Negative Negative, 35742-6) Indeterminate, See comment Clostridioides Positive Negative, A (Clostridium) difficile Indeterminate, Toxin A/B (test code = See comment 99768-3) SNOW (test code = SNOW) Based on Thinkfuse GI Panel package insert, the Thinkfuse GI Panel contains a single multiplexed assay [...] Clostridium difficile toxin A/B Detected. Based the [employer] Mobile[employer] Xpert C. difficile/Epi assay package insert, Xpert C. difficile/Epi assay detects the toxin B gene (tcdB), the binary toxin gene (CDT), and the xwfamj-gwrj-xdlb deletion at nucleotide 117 within the gene [...] organism. Lab Interpretation (test Abnormal code = 03661-8) [facility] (GUAIAC) [id number] 14:26:32 Test Item Value Reference Range Interpretation Comments Occult (guaiac) Blood (test code = Negative Negative 2335-8) Lab Interpretation (test code = Normal 34266-3) [facility] WITH [id number] 13:54:12 Test Item Value Reference Range Interpretation [...] (test code = 52.9 fL 39.0-49.9 H 44642-7) RDW-CV (test code = 18.3 % 12.0-15.5 H 788-0) PLT (test code = See_Comment LL [Automated 777-3) message] The sy stem which generated this result transmitted reference range : 166 - 358 10*3/ ?L. The reference r davi was not used to interpret this result as normal/abnormal . MPV (test code = 10.8 fL 9.5-12.9 07078-4) IPF % (test code = 4.2 % 1.3-7.7 Platelet count 8166689179) measured by fluorescence method. NRBC/100 WBC (test See_Comment [Automat ed code = 0333259918) message] The system which generated this result transmitted reference range : 0.0 - 10.0 /100 WBCs. The refer ence range was not u sed to interpret th is result as normal/abnormal . NRBC x10^3 (test code <0.01 See_Comment [Auto mated = 3557968443) message] The s ystem which generated this result transmitted reference range : 10*3/?L. The reference range was not used to interpret this result as normal/abnormal . GRAN MAT (NEUT) % 60.0 % (test code = 770-8) IMM GRAN % (test code 0.40 % = 2222311087) LYMPH % (test code = 20.6 % 736-9) MONO % (test code = 11.3 % 5905-5) EOS % (test code = 6.9 % 713-8) BASO % (test code = 0.8 % 706-2) GRAN MAT x10^3(ANC) 1.49 10*3/uL 1.88-7.09 L (test code = 7792905942) IMM GRAN x10^3 (test <0.03 0.00-0.06 code = 1348685291) LYMPH x10^3 (test code 0.51 10*3/uL 1.32-3.29 L = 731-0) MONO x10^3 (test code 0.28 10*3/uL 0.33-0.92 L = 742-7) EOS x10^3 (test code = 0.17 10*3/uL 0.03-0.39 711-2) BASO x10^3 (test code <0.03 0.01-0.07 = 704-7) Lab Interpretation Abnormal (test code = 53942-9) [facility] (01733)2020-09-30 12:47:49 Test Item Value Reference Range Interpretation Comments NA (test code = 135 mmol/L 135-145 [id number]) K (test code = 4.0 mmol/L 3.5-5.0 [id number]) CL (test code = 108 mmol/L 98-108 3677039430) CO2 TOTAL (test code = 23 mmol/L 23-31 2071690723) AGAP (test code = 2-16 7013800639) BUN (test code = 8 mg/dL 7-23 0820704821) GLUCOSE (test code = 109 mg/dL 70-110 8954137770) CREATININE (test code = 0.52 mg/dL 0.50-1.04 9431496798) TOTAL BILI (test code = 1.7 mg/dL 0.1-1.1 H 2267187197) CALCIUM (test code = 8.0 mg/dL 8.6-10.6 L 3873741577) T PROTEIN (test code = 5.7 g/dL 6.3-8.2 L 1980369308) ALBUMIN (test code = 2.7 g/dL 3.5-5.0 L 1008674616) ALK PHOS (test code = 106 U/L 34-122 4386517358) ALTv (test code = 22 U/L 5-35 1742-6) AST(SGOT) (test code = 34 U/L 13-40 7113392699) eGFR (test code = mL/min/1.73m2 6223707515) SNOW (test code = SNOW) Association of [...] tests). Lab Interpretation Abnormal (test code = 97420-1) [facility] Taylor[facility]ECAL [id number] 11:49:39 Test Item Value Reference Range Interpretation Comments Fecal Leukocytes (test code = Positive Negative A 2382848083) Lab Interpretation (test code = Abnormal 38370-8) [facility] TaylorN-TERMINAL [id number] 10:20:53 Test Item Value Reference Range Interpretation Comments NT-proBNP (test code 68 pg/mL See_Comment [Autom ated = 0176006433) message] The system which generated this result transmitted reference range : <=125. The reference range was not used to interpret this result as normal/abnormal . SNOW (test code = SNOW) Biotin has been reported to cause a negative bias, interpret results relative to patient's use of biotin. Lab Interpretation Normal (test code = 95950-3) [facility] TaylorCLOSTRIDIUM DIFFICILE [id number] 05:18:16 Test Item Value Reference Range Interpretation Comments Clostridioides (Clostridium) Negative Negative difficile (test code = 01739-7) Lab Interpretation (test code = Normal 45822-5) [facility] TaylorPOSD GLUCOSE (AUTOMATED)2020-09-30 00:54:42 Test Item Value Reference Range Interpretation Comments POCT GLU (test code = 0381951126) 111 mg/dL 70-110 H Lab Interpretation (test code = Abnormal 33325-2) [facility] METABOLIC PANEL (NA, K, CL, CO2, GLUCOSE, BUN, CREATININE, CA)2020-09-29 22:08:22 Test Item Value Reference Range Interpretation Comments NA (test code = 135 mmol/L 135-145 2452578397) K (test code = 3.7 mmol/L 3.5-5.0 2485464404) CL (test code = 108 mmol/L 98-108 4390111199) CO2 TOTAL (test code = 22 mmol/L 23-31 L 5768989710) AGAP (test code = 2-16 4965448429) BUN (test code = 9 mg/dL 7-23 4003088142) GLUCOSE (test code = 104 mg/dL 70-110 2320808968) CREATININE (test code = 0.51 mg/dL 0.50-1.04 3262926699) CALCIUM (test code = 7.9 mg/dL 8.6-10.6 L 0515822988) eGFR (test code = mL/min/1.73m2 7974016721) SNOW (test code = SNOW) Association of [...] tests). Lab Interpretation Abnormal (test code = 03444-5) [facility] TaylorHEMOGLOBIN2021-06-21 21:41:20 Test Item Value Reference Range Interpretation Comments HGB (test code = 718-7) 7.4 g/dL 11.6-15.0 L Lab Interpretation (test code = Abnormal 09525-0) [facility] TaylorVITAMIN B12, [id number] 20:39:52 Test Item Value Reference Range Interpretation Comments VIT B12 (test code = 212 pg/mL 240-930 L 3082805896) SNOW (test code = SNOW) Biotin has been reported to cause a positive bias, interpret results relative to patient's use of biotin. 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.[facility] TaylorC-REACTIVE [id number] 17:01:56 Test Item Value Reference Range Interpretation Comments CRP (test code = 7556860537) 4.7 mg/dL <0.8 H Lab Interpretation (test code = Abnormal 28338-2) [facility] TaylorVITAMIN D, [id number] 16:43:29 Test Item Value Reference Range Interpretation Comments VIT D 25OH (test code = <13 25-80 L 28770-0) SNOW (test code = SNOW) Deficiency: <20 ng/mLInsufficiency: 20-24 ng/mLOptimal: 25-80 ng/mL Lab Interpretation (test Abnormal code = 24643-5) [facility] TaylorPROCALCITONIN2021-06-21 16:15:30 Test Item Value Reference Range Interpretation Comments Procalcitonin (test 0.08 ng/mL <0.07 H code = 8454605768) SNOW (test code = SNOW) INTERPRETATION OF [...] lung abscess/empyema. For further information please refer to:[email or web address] Lab Interpretation Abnormal (test code = 15314-3) [facility] TaylorOSMOLALITY [id number] 15:35:14 Test Item Value Reference Range Interpretation Comments OSMO U (test code = See_Comment [Automa josemanuel message] 0970173827) The system [employer] generated this result transmitted ref erence range: 50-1,100 mOsm/kg. The re ference range was not u sed to interpret this result as normal/abnor mal. Lab Interpretation (test Normal code = 60613-7) [facility] TaylorTROPONIN [id number] 14:04:56 Test Item Value Reference Range Interpretation Comments TROPONIN I (test 0.002 ng/mL See_Comment [Automated code = 0667794585) message] The system which generated this result [...] ? Lab Interpretation Normal (test code = 83310-8) [facility] TaylorCT ABDOMEN PELVIS W [id number] 13:37:17 1. ?Findings concerning for infectious or [...] reviewed this study and agree with theabove report.[facility] WITH [id number] 11:41:25 Test Item Value Reference Range Interpretation [...] (test code = 52.4 fL 39.0-49.9 H 13706-5) RDW-CV (test code = 18.2 % 12.0-15.5 H 788-0) PLT (test code = See_Comment LL [Automated 777-3) message] The system which generated this result transmit josemanuel reference range : 166 - 358 10*3/ ?L. The reference range was not u sed to interpret th is result as normal/abnormal . MPV (test code = Not Measure d 18665-8) IPF % (test code = 4.3 % 1.3-7.7 Platelet count 7292569609) measured by fluorescence method. NRBC/100 WBC (test See_Comment [Automat ed code = 1765804936) message] The system which generated this result transmit josemanuel reference range : 0.0 - 10.0 /100 WBCs. The reference range was not used to interpret this result as normal/abnormal . NRBC x10^3 (test code <0.01 See_Comment [Auto mated = 1114741428) message] The system which generated this result transmit josemanuel reference range : 10*3/?L. The reference range was not used to interpret this result as normal/abnormal . GRAN MAT (NEUT) % 74.4 % (test code = 770-8) IMM GRAN % (test code 0.50 % = 0921919101) LYMPH % (test code = 10.3 % 736-9) MONO % (test code = 12.3 % 5905-5) EOS % (test code = 2.0 % 713-8) BASO % (test code = 0.5 % 706-2) GRAN MAT x10^3(ANC) 3.02 10*3/uL 1.88-7.09 (test code = 2748325937) IMM GRAN x10^3 (test <0.03 0.00-0.06 code = 4468467055) LYMPH x10^3 (test 0.42 10*3/uL 1.32-3.29 L code = 731-0) MONO x10^3 (test code 0.50 10*3/uL 0.33-0.92 = 742-7) EOS x10^3 (test code 0.08 10*3/uL 0.03-0.39 = 711-2) BASO x10^3 (test code <0.03 0.01-0.07 = 704-7) PLT ESTIMATE (test Decreased Normal A code = 9317-9) SNOW (test code = SNOW) CBC smear reduced platelet Lab Interpretation Abnormal (test code = 98488-7) [facility] TaylorN-TERMINAL [id number] 11:07:24 Test Item Value Reference Range Interpretation Comments NT-proBNP (test code 79 pg/mL See_Comment [Autom ated = 1185803200) message] The system which generated this result transmitted reference range : <=125. The reference range was not used to interpret this result as normal/abnormal . SNOW (test code = SNOW) Biotin has been reported to cause a negative bias, interpret results relative to patient's use of biotin. Lab Interpretation Normal (test code = 14435-5) [facility] TaylorIRON [id number] 11:04:41 Test Item Value Reference Range Interpretation Comments IRON (test code = 3320927126) 31 ug/dL 50-160 L TIBC (test code = 9379368981) 295 ug/dL 250-410 % FE SAT (test code = 7050888979) 11 % 20-50 L Lab Interpretation (test code = Abnormal 80358-0) [facility] TaylorPROTEIN CREAT RATIO URINE [id number] 10:57:19 Test Item Value Reference Range Interpretation Comments T. PROT U (test code = 2888-6) 9 mg/dL CREAT U (test code = 7944181526) 187.5 mg/dL Protein/Creatinine Ratio Urine 0.0-2.0 (test code = 5465473534) [facility] TaylorSODIUM, URINE [id number] 10:53:21 Test Item Value Reference Range Interpretation Comments NA URINE (test code = 7745067976) 30 mmol/L [facility] TaylorSEDIMENTATION [id number] 10:33:04 Test Item Value Reference Range Interpretation Comments ESR (test code = See_Comment [Automated message] 6769783010) The system [employer] h generated this result transmitted ref erence range: 0 - 20 m m/HR. The reference r davi was not used to interpret this result as normal/abnor mal. Lab Interpretation (test Normal code = 99471-3) [facility] TaylorPROTHROMBIN TIME / [id number] 09:43:39 Test Item Value Reference Range Interpretation Comments PROTIME PATIENT (test See_Comment H [Auto mated message] code = 5964-2) The system [employer] generated this result transmitted ref erence range: 12.0 - 1 4.7 Seconds. The reference range was not used to int erpret this result as normal/abnormal . INR (test code = 6301-6) Nor mal INR <1.1; Warfarin Therap eutic range 2.0 to 3. 0 or 2.5 to 3.5, dep ending upon the indica tions. Lab Interpretation (test Abnormal code = 93614-4) [facility] TaylorLactic Acid Whole [id number] 08:42:38 Test Item Value Reference Range Interpretation Comments LACTIC ACID (test code = 1.47 mmol/L 0.50-2.20 3268439735) Lab Interpretation (test code = Normal 56095-5) [facility] TaylorFERRITIN [id number] 07:31:09 Test Item Value Reference Range Interpretation Comments FERRITIN (test code = 12.2 ng/mL 11.0-264.0 1894466846) SNOW (test code = SNOW) Biotin has been reported to cause a negative bias, interpret results relative to patient's use of biotin. Lab Interpretation (test Normal code = 05259-0) [facility] TaylorTHYROID STIMULATING [id number] 07:27:08 Test Item Value Reference Range Interpretation Comments TSH (test code = See_Comment [Automated message] 7602484822) The system [employer] generated this result transmitted ref erence range: 0.45 - 4 .70 mIU/L. The refe rence range was not u sed to interpret this result as normal/abnor mal. Lab Interpretation (test Normal code = 02374-9) [facility] TaylorGLYCOSYLATED HEMOGLOBIN (A1C)2020-09-29 07:05:40 Test Item Value Reference Range Interpretation Comments HGB A1C (test code = 5.0 % 4.0-5.7 4548-4) SNOW (test code = SNOW) Reference RangesNormal: <5.7%Prediabetes: 5.7 - 6.4%Diabetes: > 6.5% Lab Interpretation (test Normal code = 57392-4) [facility] TaylorURIC [id number] 07:05:35 Test Item Value Reference Range Interpretation Comments URIC ACID (test code = 6676928269) 4.2 mg/dL 2.9-6.0 Lab Interpretation (test code = Normal 22002-3) [facility] TaylorCREATINE [id number] 07:05:30 Test Item Value Reference Range Interpretation Comments CK (test code = 1286650716) 192 U/L 33-194 Lab Interpretation (test code = Normal 21016-1) [facility] TaylorN-TERMINAL [id number] 07:05:30 Test Item Value Reference Range Interpretation Comments NT-proBNP (test code 94 pg/mL See_Comment [Autom ated = 8763229714) message] The system which generated this result transmitted reference range : <=125. The reference range was not used to interpret this result as normal/abnormal . SNOW (test code = SNOW) Biotin has been reported to cause a negative bias, interpret results relative to patient's use of biotin. Lab Interpretation Normal (test code = 58055-9) [facility] TaylorMAGNESIUM2021-06-21 07:04:24 Test Item Value Reference Range Interpretation Comments MAGNESIUM (test code = 9918882322) 1.8 mg/dL 1.7-2.4 Lab Interpretation (test code = Normal 07323-7) [facility] TaylorPHOSPHORUS2021-06-21 07:03:39 Test Item Value Reference Range Interpretation Comments PHOSPHORUS (test code = 8566543612) 2.2 mg/dL 2.5-5.0 L Lab Interpretation (test code = Abnormal 10892-2) [facility] TaylorLIPID PANEL (10031)(TOTAL CHOLESTEROL, TRIGLYCERIDES, HDL)2020-09-29 06:56:06 Test Item Value Reference Range Interpretation Comments CHOL (test code = 132 mg/dL 120-200 8962610060) HDL (test code = 41 mg/dL >50 L 2443057214) HDLC RATIO (test code = See_Comment [Au tomated message] 5968464073) The system [employer] generated this result transmit josemanuel reference range : <=4.5. The refe rence range was not u sed to interpret th is result as normal/abnormal . TRIG (test code = 73 mg/dL 30-170 3307290436) LDL CHOL (test code = 76 mg/dL See_Comment [Auto mated message] 41219-7) The system [employer] generated this result transmit josemanuel reference range : <=160. The refe rence range was not u sed to interpret th is result as normal/abnormal . VLDL (test code = 15 mg/dL 5-60 4811407765) Lab Interpretation (test Abnormal code = 74859-5) [facility] TaylorCOVID-19 (ID NOW RAPID TESTING)2020-09-29 06:24:26 Test Item Value Reference Range Interpretation Comments SARS-CoV-2 Rapid ID NOW Not Detected Not Detected (test code = 06084-0) SNOW (test code = SNOW) ID NOW COVID-19 Assay is an isothermal nucleic acid amplification test intended for the qualitative detection of nucleic acid from SARS-CoV-2 viral RNA in nasopharyngeal ([employer]) specimens. It is used under Emergency Use [...] indicated. Lab Interpretation Normal (test code = 12906-1) [facility] TaylorURINALYSIS2021-06-21 04:43:31 Test Item Value Reference Range Interpretation Comments APPEARANCE (test code = Clear Clear 1792674280) COLOR (test code = Rosanne Yellow A 9892436414) PH (test code = 4.8-8.0 0439788912) SP GRAVITY (test code = 1.003-1.030 6399642940) GLU U QUAL (test code = Normal Normal 5088581252) BLOOD (test code = Negative Negative 2066312165) KETONES (test code = Negative Negative 9529615529) PROTEIN (test code = 30 mg/dL Negative A 2887-8) UROBILIN (test code = Normal Normal 1825895569) BILIRUBIN (test code = Negative Negative 8491501226) NITRITE (test code = Negative Negative 1168248771) LEUK RANULFO (test code = 25/uL Negative A 7198542487) RBC/HPF (test code = See_Comment [Autom ated message] 1185744712) The system [employer] generated this result transmitted ref erence range: 0 - 3 HP F. The reference range was not used to int erpret this result as normal/abnormal . WBC/HPF (test code = See_Comment [Autom ated message] 5507243842) The system whic h generated this result transmitted ref erence range: 0 - 5 HP F. The reference range was not used to int erpret this result as normal/abnormal . BACTERIA (test code = Few Negative A 4998221831) MUCOUS (test code = Moderate Negative LPF A 2063151875) SQ EPITH (test code = HPF 3981623230) Lab Interpretation (test Abnormal code = 38873-5) [facility] WITH [id number] 04:39:35 Test Item Value Reference Range Interpretation [...] (test code = 51.3 fL 39.0-49.9 H 38625-8) RDW-CV (test code = 18.1 % 12.0-15.5 H 788-0) PLT (test code = See_Comment L [Automated 777-3) message] The system which generated this result transmit josemanuel reference range : 166 - 358 10*3/ ?L. The reference range was not u sed to interpret th is result as normal/abnormal . MPV (test code = 11.1 fL 9.5-12.9 78831-5) IPF % (test code = 3.7 % 1.3-7.7 Platelet count 1244593470) measured by fluorescence method. NRBC/100 WBC (test See_Comment [Automat ed code = 8241533270) message] The system which generated this result transmit josemanuel reference range : 0.0 - 10.0 /100 WBCs. The reference range was not used to interpret this result as normal/abnormal . NRBC x10^3 (test code <0.01 See_Comment [Auto mated = 7778968595) message] The system which generated this result transmit josemanuel reference range : 10*3/?L. The reference range was not used to interpret this result as normal/abnormal . GRAN MAT (NEUT) % 76.4 % (test code = 770-8) IMM GRAN % (test code 0.80 % = 3430371136) LYMPH % (test code = 9.4 % 736-9) MONO % (test code = 11.3 % 5905-5) EOS % (test code = 1.5 % 713-8) BASO % (test code = 0.6 % 706-2) GRAN MAT x10^3(ANC) 4.07 10*3/uL 1.88-7.09 (test code = 8797696518) IMM GRAN x10^3 (test 0.04 10*3/uL 0.00-0.06 code = 8754570955) LYMPH x10^3 (test 0.50 10*3/uL 1.32-3.29 L code = 731-0) MONO x10^3 (test code 0.60 10*3/uL 0.33-0.92 = 742-7) EOS x10^3 (test code 0.08 10*3/uL 0.03-0.39 = 711-2) BASO x10^3 (test code 0.03 10*3/uL 0.01-0.07 = 704-7) PLT ESTIMATE (test Decreased Normal A code = 9317-9) SNOW (test code = SNOW) Juan slide adgrees to decreased Platelet Lab Interpretation Abnormal (test code = 98150-5) [facility]. METABOLIC PANEL (98283)2020-09-29 04:25:42 Test Item Value Reference Range Interpretation Comments NA (test code = 134 mmol/L 135-145 L 3368224285) K (test code = 3.2 mmol/L 3.5-5.0 L 0670972396) CL (test code = 104 mmol/L 98-108 2783572476) CO2 TOTAL (test code = 24 mmol/L 23-31 6738605925) AGAP (test code = 2-16 1517634012) BUN (test code = 8 mg/dL 7-23 3554830096) GLUCOSE (test code = 105 mg/dL 70-110 3839584327) CREATININE (test code = 0.51 mg/dL 0.50-1.04 7876733008) TOTAL BILI (test code = 2.5 mg/dL 0.1-1.1 H 7046923894) CALCIUM (test code = 8.2 mg/dL 8.6-10.6 L 3378033740) T PROTEIN (test code = 6.3 g/dL 6.3-8.2 1136131822) ALBUMIN (test code = 3.1 g/dL 3.5-5.0 L 2799705785) ALK PHOS (test code = 136 U/L 34-122 H 0762877152) ALTv (test code = 24 U/L 5-35 1742-6) AST(SGOT) (test code = 30 U/L 13-40 8428520311) eGFR (test code = mL/min/1.73m2 8391393442) SNOW (test code = SNOW) Association of [...] tests). Lab Interpretation Abnormal (test code = 39430-2) [facility] TaylorLIPASE2021-06-21 04:25:42 Test Item Value Reference Range Interpretation Comments LIPASE (test code = 0643217415) 102 U/L 0-220 Lab Interpretation (test code = Normal 21526-4) [facility] TaylorSARS-CoV-2 (COVID-19) RNA [Presence] in Respiratory specimen by HELENA with probe [id number] 00:49:19 Test Item Value Reference Range Interpretation Comments SARS-CoV-2 (COVID-19) RNA Not detected Not-Detected [Presence] in Respiratory specimen by HELENA with probe detection (test code = 07271-3) 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 employed in a healthcare setting (test code = 94151-1) Whether the patient has symptoms related to condition of interest (test code = 19549-6) Patient was hospitalized because of this condition (test code = 94798-7) Whether the patient was admitted to intensive care unit (ICU) for condition of interest (test code = 53311-5) Whether patient resides in a congregate care setting (test code = 22616-9) SARS-CoV-2 (COVID-19) RNA [Presence] in Respiratory specimen by HELENA with probe [id number] 02:47:43 Test Item Value Reference Range Interpretation Comments SARS-CoV-2 (COVID-19) RNA Not detected Not-Detected [Presence] in Respiratory specimen by HELENA with probe detection (test code = 77848-7) SARS-CoV-2 (COVID-19) RNA [Presence] in Respiratory specimen by HELENA with probe [id number] 16:32:37 Test Item Value Reference Range Interpretation Comments SARS-CoV-2 (COVID-19) RNA Not detected Not-Detected [Presence] in Respiratory specimen by HELENA with probe detection (test code = 07674-6) SARS-CoV-2 (COVID-19) RNA [Presence] in Respiratory specimen by HELENA with probe [id number] 05:29:57 Test Item Value Reference Range Interpretation Comments SARS-CoV-2 (COVID-19) RNA Not detected Not-Detected [Presence] in Respiratory specimen by HELENA with probe detection (test code = 46698-7) CT ABDOMEN PELVIS W [id number] 19:27:49 1. ?No evidence of small bowel [...] reviewed this study and agree with the abovereport.[facility] WITH [id number] 11:56:00 Test Item Value Reference Range Interpretation [...] (test code = 58.0 fL 39-49.9 H 76268-9) RDW-CV (test code = 16.6 % 12-15.5 H 788-0) PLT (test code = See_Comment LL [Automated 777-3) message] The sy stem which generated this result transmitted reference range : 166 - 358 10*3/ ?L. The reference r davi was not used to interpret this result as normal/abnormal . MPV (test code = 11.0 fL 9.5-12.9 78940-1) IPF % (test code = 5.5 % 1.3-7.7 Platelet count 8107606113) measured by fluorescence method. NRBC/100 WBC (test See_Comment [Automat ed code = 1618349074) message] The system which generated this result transmitted reference range : 0.0 - 10.0 /100 WBCs. The refer ence range was not u sed to interpret th is result as normal/abnormal . NRBC x10^3 (test code <0.01 See_Comment [Auto mated = 8768080828) message] The s ystem which generated this result transmitted reference range : 10*3/?L. The reference range was not used to interpret this result as normal/abnormal . GRAN MAT (NEUT) % 57.6 % (test code = 770-8) IMM GRAN % (test code 0.00 % = 1679129534) LYMPH % (test code = 27.1 % 736-9) MONO % (test code = 11.8 % 5905-5) EOS % (test code = 3.1 % 713-8) BASO % (test code = 0.4 % 706-2) GRAN MAT x10^3(ANC) 1.47 10*3/uL 1.88-7.09 L (test code = 3584026626) IMM GRAN x10^3 (test <0.03 0-0.06 code = 7805015507) LYMPH x10^3 (test code 0.69 10*3/uL 1.32-3.29 L = 731-0) MONO x10^3 (test code 0.30 10*3/uL 0.33-0.92 L = 742-7) EOS x10^3 (test code = 0.08 10*3/uL 0.03-0.39 711-2) BASO x10^3 (test code <0.03 0.01-0.07 = 704-7) Lab Interpretation Abnormal (test code = 96912-4) [facility] TaylorCOM. METABOLIC PANEL (45533)2019-08-11 10:42:00 Test Item Value Reference Range Interpretation Comments NA (test code = 138 mmol/L 135-145 4280654229) K (test code = 3.8 mmol/L 3.5-5 5624826663) CL (test code = 108 mmol/L 98-108 9206712779) CO2 TOTAL (test code = 24 mmol/L 23-31 8952838381) AGAP (test code = 2-16 8044271292) BUN (test code = 10 mg/dL 7-23 2960217782) GLUCOSE (test code = 108 mg/dL 70-110 1185177596) CREATININE (test code = 0.43 mg/dL 0.5-1.04 L 1609264832) TOTAL BILI (test code = 2.5 mg/dL 0.1-1.1 H 0036966403) CALCIUM (test code = 8.4 mg/dL 8.6-10.6 L 6462695965) T PROTEIN (test code = 6.1 g/dL 6.3-8.2 L 1587585012) ALBUMIN (test code = 3.1 g/dL 3.5-5 L 3204651253) ALK PHOS (test code = 102 U/L 34-122 0320494774) ALTv (test code = 52 U/L 5-35 H 1742-6) AST(SGOT) (test code = 63 U/L 13-40 H 0138745445) eGFR Calculation mL/min/1.73m2 (Non-) (test code = 6328302493) eGFR Calculation mL/min/1.73m2 () (test code = 0689475956) SNOW (test code = SNOW) Association of [...] tests). Lab Interpretation Abnormal (test code = 97244-1) [facility] TaylorXR SMALL BOWEL [id number] 02:08:11 1. ?No bowel obstruction. No fluoroscopic images or fluoroscopic time. RL 6200 HISTORY: ?Abdominal pain COMPARISON: ?None FINDINGS: There is a nonobstructive bowel gas pattern. Contrast is seen throughoutthe entire small bowel and colon. Nodilated loops of bowel demonstrated. [facility], Radiant Results Inft User - 08/10/2019 9:09 PM CDTHISTORY: Abdominal painCOMPARISON: NoneFINDINGS:There is a nonobstructive bowel gas pattern. Contrast is seen throughoutthe entire small bowel and colon. No dilated loops of bowel demonstrated.IMPRESSION1.No bowel obstruction.No fluoroscopic images or fluoroscopic time.RL 6200 [facility]SEDIM[facility] [id number] 16:19:00 Test Item Value Reference Range Interpretation Comments ESR (test code = See_Comment [Automated message] 3773344964) The system [employer] generated this result transmitted ref erence range: 0 - 20 m m/HR. The reference r davi was not used to interpret this result as normal/abnor mal. Lab Interpretation (test Normal code = 70886-0) [facility] – TaylorAbdominal 1 View - To confirm nasogastric tube [...] reviewed this study and agree with the abovereport.[facility] WITH [id number] 13:48:00 Test Item Value Reference Range Interpretation Comments WBC (test code = See_Comment L [Automated 1490-2) message] The system which generated this result transmit josemanuel reference range : 4.30 - 11.10 10*3/?L. The reference range was not used to interpret this result as normal/abnormal . RBC (test code = See_Comment L [Automated 849-8) message] The system which generated this result [...] (test code = 58.4 fL 39-49.9 H 80075-9) RDW-CV (test code = 16.7 % 12-15.5 H 788-0) PLT (test code = See_Comment LL [Automated 777-3) message] The system which generated this result transmit josemanuel reference range : 166 - 358 10*3/ ?L. The reference range was not u sed to interpret th is result as normal/abnormal . MPV (test code = 10.5 fL 9.5-12.9 38557-7) IPF % (test code = 3.0 % 1.3-7.7 Platelet count [id number]) measured by fluorescence method. NRBC/100 WBC (test See_Comment [Automat ed code = 4088116627) message] The system which generated this result transmit josemanuel reference range : 0.0 - 10.0 /100 WBCs. The reference range was not used to interpret this result as normal/abnormal . NRBC x10^3 (test code <0.01 See_Comment [Auto mated = 5021934944) message] The system which generated this result transmit josemanuel reference range : 10*3/?L. The reference range was not used to interpret this result as normal/abnormal . GRAN MAT (NEUT) % 57.1 % (test code = 770-8) IMM GRAN % (test code 0.40 % = 6460423071) LYMPH % (test code = 28.1 % 736-9) MONO % (test code = 10.4 % 5905-5) EOS % (test code = 3.6 % 713-8) BASO % (test code = 0.4 % 706-2) GRAN MAT x10^3(ANC) 1.42 10*3/uL 1.88-7.09 L (test code = 1826918092) IMM GRAN x10^3 (test <0.03 0-0.06 code = 1773356749) LYMPH x10^3 (test 0.70 10*3/uL 1.32-3.29 L code = 731-0) MONO x10^3 (test code 0.26 10*3/uL 0.33-0.92 L = 742-7) EOS x10^3 (test code 0.09 10*3/uL 0.03-0.39 = 711-2) BASO x10^3 (test code <0.03 0.01-0.07 = 704-7) PLT ESTIMATE (test Critically Normal AA code = 9317-9) Decreased Lab Interpretation Abnormal (test code = 25548-2) [facility] TaylorGLYCOSYLATED HEMOGLOBIN (A1C)2019-08-10 13:13:00 Test Item Value Reference [...] Indicated Lab Interpretation Normal (test code = 25943-2) [facility] TaylorTHYROID STIMULATING [id number] 13:05:00 Test Item Value Reference Range Interpretation Comments TSH (test code = See_Comment [Automated message] 5274355819) The system [employer] generated this result transmitted ref erence range: 0.45 - 4 .70 mIU/L. The refe rence range was not u sed to interpret this result as normal/abnor mal. Lab Interpretation (test Normal code = 91404-7) [facility] TaylorPREGNANCY TEST, [id number] 13:04:00 Test Item Value Reference Range Interpretation Comments PREG SERUM (test code Negative = 3062128708) SNOW (test code = SNOW) Less than 10 IU/L. ?If low titer or ectopic is suspected, resubmit specimen in 48-72 hours. [facility] TaylorLIPID PANEL (44308)(TOTAL CHOLESTEROL, TRIGLYCERIDES, HDL)2019-08-10 12:36:00 Test Item Value Reference Range Interpretation Comments CHOL (test code = 158 mg/dL 120-200 8292704351) HDL (test code = 47 mg/dL >50 L 6366566317) HDLC RATIO (test code = See_Comment [Au tomated message] 3864459584) The system [employer] generated this result transmit josemanuel reference range : <=4.5. The refe rence range was not u sed to interpret th is result as normal/abnormal . TRIG (test code = 51 mg/dL 30-170 6643919411) LDL CHOL (test code = 101 mg/dL See_Comment [Auto mated message] 67214-9) The system [employer] generated this result transmit josemanuel reference range : <=160. The refe rence range was not u sed to interpret th is result as normal/abnormal . VLDL (test code = 10 mg/dL 5-60 8010188611) Lab Interpretation (test Abnormal code = 52142-9) [facility]. METABOLIC PANEL (90359)2019-08-10 12:35:00 Test Item Value Reference Range Interpretation Comments NA (test code = 139 mmol/L 135-145 7143150510) K (test code = 3.9 mmol/L 3.5-5 4518212962) CL (test code = 109 mmol/L 98-108 H 8461340374) CO2 TOTAL (test code = 25 mmol/L 23-31 2548403020) AGAP (test code = 2-16 7865794782) BUN (test code = 15 mg/dL 7-23 4351921452) GLUCOSE (test code = 218 mg/dL 70-110 H 3073884416) CREATININE (test code = 0.40 mg/dL 0.5-1.04 L 6492219707) TOTAL BILI (test code = 2.0 mg/dL 0.1-1.1 H 9733599138) CALCIUM (test code = 8.5 mg/dL 8.6-10.6 L 7865959943) T PROTEIN (test code = 6.2 g/dL 6.3-8.2 L 4855801833) ALBUMIN (test code = 3.1 g/dL 3.5-5 L 9007330838) ALK PHOS (test code = 99 U/L 34-122 4522057081) ALTv (test code = 42 U/L 5-35 H 1742-6) AST(SGOT) (test code = 49 U/L 13-40 H 5643507526) eGFR Calculation mL/min/1.73m2 (Non-) (test code = 1107012025) eGFR Calculation mL/min/1.73m2 () (test code = 0324171532) SNOW (test code = SNOW) Association of [...] tests). Lab Interpretation Abnormal (test code = 76601-6) [facility] TaylorMAGNESIUM2020-05-01 12:35:00 Test Item Value Reference Range Interpretation Comments MAGNESIUM (test code = 1592210702) 1.6 mg/dL 1.7-2.4 L Lab Interpretation (test code = Abnormal 78685-0) [facility] TaylorPHOSPHORUS2020-05-01 12:35:00 Test Item Value Reference Range Interpretation Comments PHOSPHORUS (test code = 9502937842) 3.6 mg/dL 2.5-5 Lab Interpretation (test code = Normal 29460-0) [facility] TaylorCREATINE [id number] 12:35:00 Test Item Value Reference Range Interpretation Comments CK (test code = 1978610359) 123 U/L 33-194 Lab Interpretation (test code = Normal 02101-3) [facility] TaylorLIPASE2020-05-01 12:35:00 Test Item Value Reference Range Interpretation Comments LIPASE (test code = 5017580986) 141 U/L 0-220 Lab Interpretation (test code = Normal 20073-6) [facility] TaylorAMYLASE2020-05-01 12:34:00 Test Item Value Reference Range Interpretation Comments LIN (test code = 1679836885) 73 U/L 35-110 Lab Interpretation (test code = Normal 73105-3) [facility] TaylorPROTHROMBIN TIME / [id number] 12:07:00 Test Item Value Reference Range Interpretation Comments PROTIME PATIENT (test See_Comment H [Auto mated message] code = 5964-2) The system [employer] generated this result transmitted ref erence range: 12.0 - 1 4.7 Seconds. The reference range was not used to int erpret this result as normal/abnormal . INR (test code = 6301-6) Nor mal INR <1.1; Warfarin Therap eutic range 2.0 to 3. 0 or 2.5 to 3.5, dep ending upon the indica tions. Lab Interpretation (test Abnormal code = 76866-6) [facility] TaylorCORONAVIRUS COVID-19 [id number] 10:18:00 Test Item Value Reference Range Interpretation Comments SARS-CoV-2 (test code = Not Detected Not Detected 23192-7) SNOW (test code = SNOW) ID NOW COVID-19 Assay is an isothermal nucleic acid amplification test intended for the qualitative detection of nucleic acid from SARS-CoV-2 viral RNA in nasopharyngeal ([employer]) specimens. It is used under Emergency Use [...] indicated. Lab Interpretation Normal (test code = 94635-1) [facility] TaylorRAD, CHEST, 1 VIEW, NON [id number] 07:50:00Reason for exam:->SOBShould this be performed at the bedside?->Yes FINAL REPORT CLINICAL HISTORY: SOB TECHNIQUE: 1 view of the chest. COMPARISON: None IMPRESSION: There is pulmonary vascular congestion with prominent lung markings bilaterally. Subpulmonic pleural effusions cannot be excluded. The cardiomediastinal silhouette is magnified by technique. Signed: Franky Louis MDReport Verified Date/Time: 10/03/2018 07:50:47 Reading Location: [facility] Radiology Reading Room [id number] 07:37:00 Test Item Value Reference Range Interpretation Comments MAGNESIUM (BEAKER) (test code = 1.6 mg/dL 1.6-2.6 627) BASIC METABOLIC [id number] 07:37:00 Test Item Value Reference Range Interpretation [...] DIALYSIS PATIEN TS. Specimen slightly ictericHEPATIC FUNCTION [id number] 07:37:00 Test Item Value Reference Range Interpretation [...] 35 U/L 6-55 347) Specimen slightly ictericPROTHROMBIN TIME/[id number] 06:25:00 Test Item Value Reference Range Interpretation [...] mechanical heart valves.CBC W/PLT COUNT & AUTO [id number] 06:16:00 Test Item Value Reference Range Interpretation [...] = 3438) Received comment: User comments: Slide comments:[id number] 05:58:00 Test Item Value Reference Range Interpretation Comments MAGNESIUM (BEAKER) (test code = 1.6 mg/dL 1.6-2.6 627) BASIC METABOLIC [id number] 05:58:00 Test Item Value Reference Range Interpretation [...] DIALYSIS PATIEN TS. Specimen slightly ictericHEPATIC FUNCTION [id number] 05:58:00 Test Item Value Reference Range Interpretation [...] 39 U/L 6-55 347) Specimen slightly ictericPROTHROMBIN TIME/[id number] 05:26:00 Test Item Value Reference Range Interpretation [...] mechanical heart valves.CBC W/PLT COUNT & AUTO [id number] 05:20:00 Test Item Value Reference Range Interpretation [...] WBC 0-0 (test code = 413) VITAMIN [id number] 06:57:00 Test Item Value Reference Range Interpretation Comments VITAMIN B12 (BEAKER) (test code = 178 pg/mL 213-816 L 774) [id number] 06:57:00 Test Item Value Reference Range Interpretation Comments FERRITIN (BEAKER) (test code = 361) 21 ng/mL 5-275 FOLATE, [id number] 06:57:00 Test Item Value Reference Range Interpretation [...] 28 % 20-55 (test code = 2590) [id number] 05:59:00 Test Item Value Reference Range Interpretation Comments MAGNESIUM (BEAKER) (test code = 1.7 mg/dL 1.6-2.6 627) BASIC METABOLIC [id number] 05:59:00 Test Item Value Reference Range Interpretation [...] FOR DIALYSIS PATIEN TS. Specimen slightly ictericLIPID [id number] 05:59:00 Test Item Value Reference Range Interpretation [...] Very High >=190 Specimen slightly ictericHEPATIC FUNCTION [id number] 05:59:00 Test Item Value Reference Range Interpretation [...] = 41 U/L 6-55 347) Specimen slightly [id number] 05:59:00 Test Item Value Reference Range Interpretation Comments LIPASE (BEAKER) (test code = 749) 35 U/L 8-78 Specimen slightly ictericPROTHROMBIN [id number] 05:58:00 Test Item Value Reference Range Interpretation [...] mechanical heart valves.CBC W/PLT COUNT & AUTO [id number] 05:37:00 Test Item Value Reference Range Interpretation [...] PERCENT (BEAKER) (test code = 2801) POCT-HEMOGLOBIN [id number] 06:12:00 Test Item Value Reference Range Interpretation Comments POC-HEMOGLOBIN METER 8.6 g/dL 12.0-15.0 L TESTED AT [facility] 67[address] (BEAKER) (test code = [place] [address] 1539)"
--- NOTE | 2021-04-27 06:33 | EDPHYS ---
Physician Documentation [facility] Name: Zenaida Goss Age: 61 yrs Sex: Female : 1960 Arrival Date: 04/27/2021 Time: 05:02 Bed 10 Private MD: ED Physician Aayush Alfaro HPI: 04/27 06:39 This 61 yrs old Female presents to ER via Ambulatory with complaints of Knee jr8 Injury - Fractured, Knee Pain. 06:39 Modifying factors: The symptoms are alleviated by nothing. the symptoms are aggravated jr8 by movement, weight bearing, bending knee. Associated signs and symptoms: The patient has no apparent associated signs or symptoms. Severity of symptoms: At their worst the symptoms were moderate, in the emergency department the symptoms are unchanged. The patient has experienced a previous episode. The patient has not recently seen a physician. This is a 61-year-old female patient that presented to the emergency room with continued right knee pain. Patient was seen on April 08 for knee pain and was found to have a patellar fracture. Has set an appointment to see orthopedics but cannot get in until April 2026. Patient stated that the pain has persisted since then and feels slightly worse now on the medial aspect of her leg. Denies reinjury. Historical: - Allergies: 05:14 Dilaudid; kd3 05:14 Morphine (Anaphylaxis); kd3 - Home Meds: 05:14 Lactulose Oral once daily [Active]; Creon oral [Active]; kd3 - PMHx: 05:14 Anemia; breast cancer; Cirrhosis; fatty liver; Pancreatitis; varices; kd3 - PSHx: 05:14 Appendectomy; Cholecystectomy; Lumpectomy of breast; Total abdominal hysterectomy; kd3 - Immunization history:: Adult Immunizations up to date, Flu vaccine is up to date. Hepatitis A vaccine is up to date Hepatitis B vaccine is up to date. - Social history:: Smoking status: Smoking status: Patient denies any tobacco usage or history of. ROS: 06:39 Constitutional: Negative for fever, chills, and weight loss, Skin: Negative for injury, jr8 rash, and discoloration, Neuro: Negative for headache, weakness, numbness, tingling, and seizure. 06:39 MS/extremity: Positive for pain, tenderness, of the right knee. 06:39 All other systems are negative. Exam: 06:39 Constitutional: This is a well developed, well nourished patient who is awake, alert, jr8 and in no acute distress. Cardiovascular: Regular rate and rhythm with a normal S1 and S2. No gallops, murmurs, or rubs. Normal PMI, no JVD. No pulse deficits. Respiratory: Lungs have equal breath sounds bilaterally, clear to auscultation and percussion. No rales, rhonchi or wheezes noted. No increased work of breathing, no retractions or nasal flaring. Skin: Warm, dry with normal turgor. Normal color with no rashes, no lesions, and no evidence of cellulitis. Neuro: Awake and alert, GCS 15, oriented to person, place, time, and situation. Cranial nerves II-XII grossly intact. Motor strength 5/5 in all extremities. Sensory grossly intact. 06:39 Musculoskeletal/extremity: Extremities: grossly normal except: noted in the right knee: Patient has pain to the medial aspect of the right knee and to the patellar region. No noticeable joint effusion appreciated., ROM: intact in all extremities, Circulation is intact in all extremities. Sensation intact. Joints: the right knee displays pain at rest, painful range of motion, tenderness, DVT Exam: no pain, no swelling, no tenderness, negative Homans' sign noted on exam, no appreciated bluish discoloration, no erythema, no increased warmth, Calves: are non-tender, have equal circumference. Vital Signs: 05:10 BP 142 / 72; Pulse 78; Resp 16; Temp 98.0; Pulse Ox 100% on R/A; Weight 117.93 kg; kd3 Height 5 ft. 4 in. (162.56 cm); Pain 10/10; 06:19 BP 120 / 58; Pulse 75; Resp 18; Pulse Ox 98% on R/A; kd3 05:10 Body Mass Index 44.63 (117.93 kg, 162.56 cm) kd3 MDM: 06:15 Patient medically screened. jr8 06:30 Data reviewed: vital signs, nurses notes, old medical records, and as a result, I will jr8 discharge patient. Data interpreted: Pulse oximetry: on room air is 98 %. Interpretation: normal. Counseling: I had a detailed discussion with the patient and/or guardian regarding: the historical points, exam findings, and any diagnostic results supporting the discharge/admit diagnosis, the need for outpatient follow up, a orthopedic surgeon, to return to the emergency department if symptoms worsen or persist or if there are any questions or concerns that arise at home. ED course: Patient continues to have right-sided knee pain. Supposed to see orthopedics in 10 days as that was first available appointment. Has knee immobilizer and cane at home. Discussed with her that she needs to see orthopedics and have MRI completed which will give her the most definitive answer as to why she is having increased pain and burning now to the medial aspect of the knee. I explained to her that I suspect that she might have a meniscal or ligament issue and not necessarily be due to her patellar fracture. She needs to continue to rest and elevate and ice it is much as possible and will give her some pain medicine to bridge her until she can see orthopedics. Patient good with the plan at this time. 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 Last prescriptive narcotic was on April 08. 3 jr8 day supply. No others since then. Low risk for abuse . Administered Medications: 06:45 Drug: [place] (HYDROcodone-acetaminophen) 10 mg-325 mg 1 tabs Route: PO; kd3 Disposition Summary: 04/27/21 06:33 Discharge Ordered Location: Home jr Problem: new jr8 Symptoms: are unchanged jr8 Condition: Stable jr8 Diagnosis - Pain in right knee jr8 Followup: jr8 - With: Gm Singh MD - When: 7 - 10 days - Reason: Recheck today's complaints, Continuance of care, Re-evaluation by your physician Discharge Instructions: - Discharge Summary Sheet jr8 - Joint Pain jr8 - Acute Knee Pain, Adult jr8 Forms: - Medication Reconciliation Form jr8 - Thank You Letter jr8 - Antibiotic Education jr8 - Prescription Opioid Use jr8 Prescriptions: - Tylenol-Codeine #3 300 mg-30 mg Oral - take 2 tablet by ORAL route every 8 hours As needed; 20 tablet; Refills: 0, jr8 Product Selection Permitted Signatures: Scott Eastman PA PA jr8 Sushila Christian, RN RN kd3
--- NOTE | 2021-04-27 06:33 | ER ---
Nurse's Notes [facility] Name: Zenaida Goss Age: 61 yrs Sex: Female : 1960 Arrival Date: 04/27/2021 Time: 05:02 Bed 10 Private MD: Diagnosis: Pain in right knee Presentation: 04/27 05:10 Chief complaint: Patient states: I CAME HER ON THE March AND FOUND OUT MY RIGHT kd3 KNEE CAP WAS FRACTURED. THE PAIN HASN'T GOTTEN ANY BETTER AND I RAN OUT OF PAIN MEDICINE. I HAVEN'T BEEN DOING ANYTHING TO MAKE IT WORSE. JUST GETTING UP TO THE RESTROOM AND BACK. Coronavirus screen: Vaccine status: Patient reports receiving the 2nd dose of the covid vaccine. Ebola Screen: No symptoms or risks identified at this time. Initial Sepsis Screen: Does the patient meet any 2 criteria? No. Patient's initial sepsis screen is negative. Does the patient have a suspected source of infection? No. Patient's initial sepsis screen is negative. Risk Assessment: Do you want to hurt yourself or someone else? Patient reports no desire to harm self or others. Onset of symptoms was April 08, 2021. 05:10 Method Of Arrival: Ambulatory kd3 05:10 Acuity: TANK 4 kd3 Triage Assessment: 05:14 General: Appears uncomfortable, Behavior is calm, cooperative, appropriate for age. kd3 Pain: Complains of pain in lateral aspect of right knee, posterior aspect of right knee, medial aspect of right knee and right knee. Musculoskeletal: Tenderness present in lateral aspect of right knee, posterior aspect of right knee, medial aspect of right knee and right knee. Injury Description: KNEE CAP FRACTURE FROM FALL. Historical: - Allergies: 05:14 Dilaudid; kd3 05:14 Morphine (Anaphylaxis); kd3 - Home Meds: 05:14 Lactulose Oral once daily [Active]; Creon oral [Active]; kd3 - PMHx: 05:14 Anemia; breast cancer; Cirrhosis; fatty liver; Pancreatitis; varices; kd3 - PSHx: 05:14 Appendectomy; Cholecystectomy; Lumpectomy of breast; Total abdominal hysterectomy; kd3 - Immunization history:: Adult Immunizations up to date, Flu vaccine is up to date. Hepatitis A vaccine is up to date Hepatitis B vaccine is up to date. - Social history:: Smoking status: Smoking status: Patient denies any tobacco usage or history of. Screenin:17 Abuse screen: Denies threats or abuse. Denies injuries from another. Nutritional kd3 screening: No deficits noted. Tuberculosis screening: No symptoms or risk factors identified. Fall Risk Gait- Impaired (20 pts.). Assessment: 05:37 Reassessment: No changes from previously documented assessment. Patient is alert, kd3 oriented x 3, equal unlabored respirations, skin warm/dry/pink. see triage notes. 06:19 Reassessment: No changes from previously documented assessment. SEEING PT IN ROOM. kd3 Vital Signs: 05:10 BP 142 / 72; Pulse 78; Resp 16; Temp 98.0; Pulse Ox 100% on R/A; Weight 117.93 kg; kd3 Height 5 ft. 4 in. (162.56 cm); Pain 10/10; 06:19 BP 120 / 58; Pulse 75; Resp 18; Pulse Ox 98% on R/A; kd3 05:10 Body Mass Index 44.63 (117.93 kg, 162.56 cm) kd3 ED Course: 05:02 Patient arrived in ED. wm 05:14 Triage completed. kd3 05:14 Arm band placed on right wrist. kd3 05:18 Patient has correct armband on for positive identification. kd3 05:35 Sushila Christian, RN is Primary Nurse. kd3 05:42 Aayush Alfaro MD is Attending Physician. mh7 06:13 Scott Eastman PA is [facility]. jr8 06:32 Gm Singh MD is Referral Physician. jr8 06:45 No provider procedures requiring assistance completed. Patient did not have IV access kd3 during this emergency room visit. Administered Medications: 06:45 Drug: [place] (HYDROcodone-acetaminophen) 10 mg-325 mg 1 tabs Route: PO; kd3 Outcome: 06:33 Discharge ordered by . jr8 06:45 Discharged to home via wheelchair. kd3 06:45 Condition: stable 06:45 Discharge instructions given to patient, Instructed on discharge instructions, follow up and referral plans. medication usage, Demonstrated understanding of instructions, follow-up care, medications. 06:46 Patient left the ED. kd3 Signatures: Scott Eastman PA PA jr8 Aayush Alfaro MD MD mh7 Deysi Mathew Kyli, RN RN kd3
[2021-04-27] MEDS ORDERED: HYDROCODONE/APAP 10/325 TAB ONE (06:39)
[2021-04-27 06:52] VITALS: TEMP 98
[2021-04-27 06:53] VITALS: BP 120/58; O2SAT 98
== END 2021-04-27 06:46 | disposition home or self-care (01) ==
LOC: ER 04:57
DX: M25.561 Pain in right knee (principal); Z88.5 Allergy status to narcotic agent
CPT/HCPCS: 99283

== ENCOUNTER 2021-05-20 23:54 | Emergency (ER) | payer OTHER ==
--- OUTSIDE RECORDS SUMMARY | 2021-05-21 00:05 | XMS REPORT | Continuity of Care Document ---
:1960 Author Organization [facility] t Address [address] [place] [address] Dr. [address]. [address] [place] [address] Care Team Providers Name Role Phone Sami HERNANDEZ Primary Care Physician Unavailable Ruth Attending Clinician Unavailable Harley Attending Clinician Unavailable [facility] Attending Clinician Unavailable José Manuel GREEN Attending Clinician Unavailable Beatriz CLINICAL PHARMACY COORDINATOR, F Attending Clinician Nancy REYES Attending Clinician [...] Clinician Unavailable JUDIT ESCALONA Attending Clinician Unavailable BEATRIZ, José Manuel Admitting Clinician Unavailable SHERIDAN THOMAS Admitting Clinician [...] Number Effective Date Expiration Date Deshawn blancas [facility] [id number] 2019 CHOICE 00:00:00 Problems Condition Condition Condition [...] Source Name Type Date Date Clinician Mikaelamor Propensi Active Rash Univer s phone ty [...] t Reaction Available [facility] Social History Social Habit Start Date Stop Date Quantity Comments Source Exposure to Not sure [facility] SARS-CoV-2 [facility] (event) Branch Alcohol intake 2021-04-02 2021-04-02 Ex-drinker [facility] 00:00:00 00:00:00 (finding) [facility] Tobacco use and 2016-08-07 2016-08-07 Never used Universit y of exposure 00:00:00 00:00:00 [facility] Sex Ass[birth year] At [birth year] Universit y of 00:00:00 00:00:00 [facility] Smoking Status Start Date Stop Date Source Never smoker [facility] Medications Ordered Filled Start Stop Current Ordering Indication Dosage Frequency Signature Comments Components Source Medication Medication Date Date Medication? Clinician (SIG) Name Name dexamethaso 2020-04- No 10mg 10 mg, Uni vers ne 2-23 12-23 Oral, ity of (DECADRON 20:45: 20:05 ONCE, 1 [place] PHOSPHATE[place] 00 :00 dose, On Medic al injection Geraldine Branch 10 mg 04/02/21 at 1445, Routine ketorolac 2020-04- No 30mg 30 mg, Unive rs (TORADOL) 2-23 12-23 Intramuscu ity of injection 20:45: 20:05 lar, ONCE, [place] 30 mg 00 :00 1 dose, On Medical Gerladine Branch 04/02/21 at 1445, VERN ondansetron 2020-04 Yes [id number] 4mg Take 1 Univers 4 mg 2-23 tablet by ity of disintegrat 00:00: mouth [place] ing tablet 00 every 8 Medica l (eight) Branch hours as needed for Nausea and Vomiting (N/V). ondansetron 2020-04 Yes [id number] 4mg Take 1 Univers 4 mg 2-23 tablet by ity of disintegrat 00:00: mouth [place] ing tablet 00 every 8 Medica l (eight) Branch hours as needed for Nausea and Vomiting (N/V). cholecalcif 2020- No [id number] 1999U Take 2 Univers nuno, 6-26 07-27 tablets by ity of vitamin D3, 00:00: 04:59 [place] 25 mcg 00 :00 daily for Medical (1,000 30 days. Branch unit) tablet cyanocobala 2020- No [id number] 1000ug inject 1 Univers min 1,000 6-26 07-27 mL under ity o f mcg/mL 00:00: 04:59 the skin [place] injection 00 :00 every 24 Medica l (twenty-fo Branch ur) hours for 30 days. KCL 20 mEq 2020- No [id number] 20meq Take 1 Univers tablet 6-26 07-27 tablet by ity of 00:00: 04:59 mouth [place] 00 :00 daily for Medical 30 days. Branch cholecalcif 2020- No [id number] 1999U Take 2 Univers nuno, 6-26 07-27 tablets by ity of vitamin D3, 00:00: 04:59 [place] 25 mcg 00 :00 daily for Medical (1,000 30 days. Branch unit) tablet cyanocobala 2020- No [id number] 1000ug inject 1 Univers min 1,000 6-26 07-27 mL under ity o f mcg/mL 00:00: 04:59 the skin [place] injection 00 :00 every 24 Medica l (twenty-fo Branch ur) hours for 30 days. KCL 20 mEq 2020- No [id number] 20meq Take 1 Univers tablet 6 07-27 tablet by ity of 00:00: 04:59 [...] ity o f mL oral 18:10: daily. [place] solution 25 Medical Branch pantoprazol Yes 40mg Take 40 mg Univers e 6-25 by mouth ity of (PROTONIX) 18:10: daily. [place] 40 mg EC 25 Medical tablet Branch [...] unresponsi ve to Ondansetro n proMETHazin Yes [id number] 12.5mg Take 1 Univers e 12.5 mg 6-25 tablet by ity o f tablet 00:00: mouth [place] 00 every 6 Medical (six) Branch hours as needed for Nausea and Vomiting (N/V) or N/V unresponsi ve to Ondansetro n. proMETHazin Yes [id number] 12.5mg Take 1 Univers e 12.5 mg 6-25 tablet by ity o f tablet 00:00: mouth [place] 00 every 6 Medical (six) Branch hours as needed for Nausea and Vomiting (N/V) or N/V unresponsi ve to Ondansetro n. proMETHazin Yes [id number] 12.5mg Take 1 Univers e 12.5 mg 6-25 tablet by ity o f tablet 00:00: mouth [place] 00 every 6 Medical (six) Branch hours as needed for Nausea and Vomiting (N/V) or N/V unresponsi ve to Ondansetro n. proMETHazin Yes [id number] 12.5mg Take 1 Univers e 12.5 mg 6-25 tablet by ity o f tablet 00:00: mouth [place] 00 every 6 Medical (six) Branch hours as needed for Nausea and Vomiting (N/V) or N/V unresponsi ve to Ondansetro n. proMETHazin Yes [id number] 12.5mg Take 1 Univers e 12.5 mg 6-25 tablet by ity o f tablet 00:00: mouth [place] 00 every 6 Medical (six) Branch hours as needed for Nausea and Vomiting (N/V) or N/V unresponsi ve to Ondansetro n. proMETHazin Yes [id number] 12.5mg Take 1 Univers e 12.5 mg 6-25 tablet by ity o f tablet 00:00: mouth [place] 00 every 6 Medical (six) Branch hours as needed for Nausea and Vomiting (N/V) or N/V unresponsi ve to Ondansetro n. proMETHazin Yes [id number] 12.5mg Take 1 Univers e 12.5 mg 6-25 tablet by ity o f tablet 00:00: mouth [place] 00 every 6 Medical (six) Branch hours as needed for Nausea and Vomiting (N/V) or N/V unresponsi ve to Ondansetro n. furosemide 2020- No [id number] 40mg Take 1 Univers 40 mg 6-25 07-26 tablet by ity of tablet 00:00: 04:59 mouth [place] 00 :00 every Medical morning Branch and evening for 30 days. lipase-prot 2020- No [id number] 2{capsu Take 2 Univers ease-amylas 6-25 07-26 le} capsules ity of e 00:00: 04:59 by mouth 3 [place] 12,000-38,0 00 :00 (three) Medic al 00 -60,000 times Branch unit daily with capsule meals for 30 days. lactobacill 2020- No [id number] .5mg Take 1 Univers us 6-25 07-26 tablet by ity of acidophilus 00:00: 04:59 mouth 2 [place] 00 :00 (two) Medical times Branch daily for 30 days. furosemide 2020- No [id number] 40mg Take 1 Univers 40 mg 6-25 07-26 tablet by ity of tablet 00:00: 04:59 mouth [place] 00 :00 every Medical morning Branch and evening for 30 days. lipase-prot 2020- No [id number] 2{capsu Take 2 Univers ease-amylas 6-25 07-26 le} capsules ity of e 00:00: 04:59 by mouth 3 [place] 12,000-38,0 00 :00 (three) Medic al 00 -60,000 times Branch unit daily with capsule meals for 30 days. lactobacill 2020- No [id number] .5mg Take 1 Univers us 6-25 07-26 tablet by ity of acidophilus 00:00: 04:59 mouth 2 [place] 00 :00 (two) Medical times Branch daily for 30 days. vancomycin 2020- No [id number] 125mg Take 1 Univers 125 mg 6-25 07-06 capsule by ity of capsule 00:00: 04:59 mouth 4 [place] 00 :00 (four) Medical times Branch daily for 10 days. vancomycin 2020- No [id number] 125mg Take 1 Univers 125 mg 6-25 [...] Indication s: acute pain cephALEXin 2020- No [id number] 500mg Take 1 Univers 500 mg 10-03 capsule by ity of capsule 00:00: 04:59 mouth 4 [place] 00 :00 (four) Medical times Branch daily for 5 days. cephALEXin 2020- No [id number] 500mg Take 1 Univers 500 mg 10-03 [...] QHSPRN, [place] mg 57 Starting Medical [facility] Branch 09/29/20 at 2251, Until Discontinu ed, Routine, Insomnia D5W 0.45% 2020- No IV Univers NaCl 09-29 Infusion, ity of (1/2NS) 1 L 21:00: 21:15 at 100 Quang as + KCL 20 00 :40 mL/hr, Medical mEq CONTINUOUS Branch , Starting Tue09/29/20 at 1600, Until Tue09/30/20 at 1615, Routine cholecalcif Yes 2000U 2,000 Univ ers nuno 09-29 Units, ity of (vitamin 20:00: Oral, [place] D3) tablet 00 DAILY, Medical 2,000 Units First dose Br anch on [facility] 09/29/20 at 1500, Until Discontinu ed, Routine lactobacill Yes .5mg 0.5 mg, Uni vers us 09-29 Oral, BID, ity of acidophilus 14:15: First dose [place] tablet 0.5 00 on [facility] Medical mg 09/29/20 at Branch 0915, Until Discontinu ed, Routine KCL Yes 20meq 20 mEq, Univers (KLOR-CON 09-29 Oral, ity of M20) tablet 14:00: DAILY, [place] 20 mEq 00 First dose Medical (after Branch last reorder) on [facility] 09/29/20 at 0900, Until Discontinu ed, Routine lipase-prot 0 Yes 2{capsu 2 capsule, Univers ease-amylas 09-29 le} Oral, TID ity of e (CREON) 08:45: MEALS, [place] 12,000-38,0 00 First dose Me dical 00 -60,000 on [facility] Branch unit 09/29/20 at capsule [...] :00 s, ONCE, 1 Medic al dose, [facility] 09/29/20 at 0245, Routine FENTanyl PF 2020- No 50ug 50 mcg, Un marline (SUBLIMAZE 09-29 Slow IV ity o f (PF)) 07:30: 06:27 Push, [place] injection 00 :00 ONCE, 1 Medical 50 mcg dose, [facility] 09/29/20 at 0230, Routine piperacilli 2020- No 3.375g 3.375 g, Univers n-tazobacta 09-29 IV ity of m (ZOSYN) 07:30: 07:00 Piggyback, [place] 3.375 g in 00 :00 ONCE, 1 Medica l NaCl 0.9% dose, [facility] Branc h (NS) 100 mL [...] injection 4 17 Starting Medi molly mg [facility] Branch 09/29/20 at 0142, Until Discontinu ed, Routine, Nausea and Vomiting (N/V) iopamidol 2020- No [id number] 100mL 100 mL, Univers (ISOVUE 09-29 Intravenou [...] Until Tue09/29/20 at 0138, Routine Meloxicam Meloxicam 2019- No Gm [address] [facility] [address] 09-17 [...] for Pain (scale 4-6). acetaminoph 2020-0 Yes [id number] 1{tbl} Take 1 Univers en-codeine 5-02 tablet by ity of 300-30 mg 00:00: mouth [place] tablet 00 every 4 Medical (four) Branch hours as needed for Pain (scale 4-6). acetaminoph 2020-0 Yes [id number] 1{tbl} Take 1 Univers en-codeine 5-02 tablet by ity of 300-30 mg 00:00: mouth [place] tablet 00 every 4 Medical (four) Branch hours as needed for Pain (scale 4-6). acetaminoph 2020-0 Yes [id number] 1{tbl} Take 1 Univers en-codeine 5-02 tablet by ity of 300-30 mg 00:00: mouth [place] tablet 00 every 4 Medical (four) Branch hours as needed for Pain (scale 4-6). lactulose 2019-0 2020- No [id number] 30mL Take 30 mL Univers 10 gram/15 5- 06-02 by mouth 2 it y of mL oral 00:00: 04:59 (two) [place] solution 00 :00 times Medical daily for Branch 30 days. pantoprazol 2019-0 2020- No [id number] 40mg Take 1 Univers e 40 mg EC 5- 06- tablet by ity of tablet 00:00: 04:59 mouth [place] 00 :00 daily for Medical 30 days. Branch lactulose 2019-0 2020- No [id number] 30mL Take 30 mL Univers 10 gram/15 5-02 06-02 by mouth 2 it y of mL oral 00:00: 04:59 (two) [place] solution 00 :00 times Medical daily for Branch 30 days. pantoprazol 2019-0 2020- No [id number] 40mg Take 1 Univers e 40 mg EC 5-02 06-02 tablet by ity of tablet 00:00: 04:59 mouth [place] 00 :00 daily for Medical 30 days. Branch propranolol 2019-0 2020- No [id number] 10mg Take 1 Univers 10 mg 5- 05-02 tablet by ity of tablet 00:00: [...] Until Discontinu ed, 100 mL LORazepam 2019- 2020- No .25mg 0.25 mg, Un marline [...] Discontinu ed, Routine, Pain (scale 4-6) ondansetron 2019-0 2020- No 4mg 4 mg, Slow Univers (ZOFRAN 08-09 IV Push, ity of (PF)) 08:55: 03:29 Q6HPRN, [place] injection 4 07 :20 Starting Medi molly mg Tue08/10/19 Branch at 0355, Until Tue08/10/19 at 2229, Routine, Nausea and Vomiting (N/V) ibuprofen 2018-0 2020- No 600mg Take 1 Univ ers [...] (two) Medical rectal times Branch cream daily. Pantoprazol Pantoprazol Yes Gm not [facility] [...] n Singh defined [facility] Amoxicillin Amoxicillin Yes Gm not [facility] -Pot -Pot Singh defined [facility] - Clavulanate Clavulanate [facility] Immunizations Ordered Filled Immunization Date Status Comments [facility] e Immunization Name Name Pneumococcal 2020-10-03 Completed [...] Completed Unive rsity of MODERNA VACCINE 00:00:00 [facility] ical Branch SARS-COV-2 COVID-19 2020-08-08 Completed Unive rsity of MODERNA VACCINE 00:00:00 [place] [facility] ical Branch SARS-COV-2 COVID-19 2020-08-08 Completed Unive rsity of MODERNA VACCINE 00:00:00 [place] [facility] ical Branch SARS-COV-2 COVID-19 2020-08-08 Completed Unive rsity of MODERNA VACCINE 00:00:00 [place] [facility] ical Branch SARS-COV-2 COVID-19 2020-08-08 Completed Unive rsity of MODERNA VACCINE 00:00:00 [place] [facility] SARS-COV-2 COVID-19 2020-08-08 Completed Unive rsity of MODERNA VACCINE 00:00:00 [facility] ical Branch SARS-COV-2 COVID-19 2020-08-08 Completed Unive rsity of MODERNA VACCINE 00:00:00 [facility] SARS-COV-2 COVID-19 2020-08-08 Completed Unive rsity of MODERNA VACCINE 00:00:00 [facility] SARS-COV-2 COVID-19 2020-07-11 Completed Unive rsity of MODERNA VACCINE 00:00:00 [facility] SARS-COV-2 COVID-19 2020-07-11 Completed Unive rsity of MODERNA VACCINE 00:00:00 [facility] SARS-COV-2 COVID-19 2020-07-11 Completed Unive rsity of MODERNA VACCINE 00:00:00 [facility] SARS-COV-2 COVID-19 2020-07-11 Completed Unive rsity of MODERNA VACCINE 00:00:00 [facility] SARS-COV-2 COVID-19 2020-07-11 Completed Unive rsity of MODERNA VACCINE 00:00:00 [facility] SARS-COV-2 COVID-19 2020-07-11 Completed Unive rsity of MODERNA VACCINE 00:00:00 [facility] SARS-COV-2 COVID-19 2020-07-11 Completed Unive rsity of MODERNA VACCINE 00:00:00 [facility] SARS-COV-2 COVID-19 2020-07-11 Completed Unive rsity of MODERNA VACCINE 00:00:00 [facility] Influenza Virus 2019-08-11 Completed Universit y of Vaccine Quad .5 mL 00:00:00 [facility] IM 6+ MO Branch Influenza Virus 2019-08-11 Completed Universit y of Vaccine Quad .5 mL 00:00:00 [place] [facility] IM 6+ MO Branch Influenza Virus 2019-08-11 Completed Universit y of Vaccine Quad .5 mL 00:00:00 [place] [facility] IM 6+ MO Branch Influenza Virus 2019-08-11 Completed Universit y of Vaccine Quad .5 mL 00:00:00 [place] [facility] IM 6+ MO Branch Influenza Virus 2019-08-11 Completed Universit y of Vaccine [place] .5 mL 00:00:00 [place] [facility] IM 6+ MO Branch Influenza Virus 2019-08-11 Completed Universit y of Vaccine Quad .5 mL 00:00:00 [place] [facility] IM 6+ MO Branch Influenza Virus 2019-08-11 Completed Universit y of Vaccine Quad .5 mL 00:00:00 [place] [facility] IM 6+ MO Branch Influenza Virus 2019-08-11 Completed Universit y of Vaccine Quad .5 mL 00:00:00 [place] [facility] IM 6+ MO Branch Influenza Virus 2019-08-11 Completed Universit y of Vaccine Quad .5 mL 00:00:00 [place] [facility] IM 6+ MO Branch Influenza Virus 2019-08-11 Completed Universit y of Vaccine [place] .5 mL 00:00:00 [place] [facility] IM 6+ MO Branch Influenza Virus 2019-08-11 Completed Universit y of Vaccine [place] .5 mL 00:00:00 [facility] IM 6+ MO Branch Vital Signs Vital Name Observation Time Observation Value Comments Source Systolic blood 2021-04-02 18:55:00 138 mm[Hg] Univer sity of pressure [facility] Diastolic blood 2021-04-02 18:55:00 104 mm[Hg] Unive rsity of pressure [facility] Heart rate 2021-04-02 18:55:00 74 /min Universi ty [facility] Body temperature 2021-04-02 18:55:00 36.78 Sandee [facility] rate 2021-04-02 18:55:00 18 /min [facility] Body weight 2021-04-02 18:55:00 [facility] BMI 2021-04-02 18:55:00 46.35 kg/m2 [facility] Oxygen saturation in 2021-04-02 18:55:00 97 /min [facility] Arterial blood by [facility] Pulse oximetry Branch Systolic blood 2020-10-03 17:23:00 132 mm[Hg] Univer sity of pressure [facility] Diastolic blood 2020-10-03 17:23:00 56 mm[Hg] Unive rsity of pressure [facility] Heart rate 2020-10-03 17:23:00 88 /min Universi ty [facility] Body temperature 2020-10-03 17:23:00 36.94 Sandee [facility] Respiratory rate 2020-10-03 17:23:00 18 /min [facility] Oxygen saturation in 2020-10-03 17:23:00 94 /min University of Arterial blood by [facility] Pulse oximetry Branch Body weight 2020-09-30 08:11:00 121.473 kg Universi ty of [place] [facility] BMI 2020-09-30 08:11:00 47.44 kg/m2 Universi ty of [place] [facility] Body height 2020-09-29 03:33:00 160 cm Universi ty of [place] [facility] Diastolic blood 2019-08-11 20:04:00 44 mm[Hg] Unive rsity of pressure [place] [facility] Heart rate 2019-08-11 20:04:00 70 /min Universi ty of [place] [facility] Body temperature 2019-08-11 20:04:00 36.61 Sandee Univ ersity of [place] [facility] Respiratory rate 2019-08-11 20:04:00 18 /min Univ ersity of [place] [facility] Oxygen saturation in 2019-08-11 20:04:00 91 /min University of Arterial blood by [facility] Pulse oximetry Branch Systolic blood 2019-08-11 20:04:00 107 mm[Hg] Univer sity of [facility] Body height 2019-08-10 08:01:00 162.6 cm Universi ty of [place] [facility] Body weight 2019-08-10 08:01:00 119.296 kg Universi ty of [place] [facility] BMI 2019-08-10 08:01:00 45.14 kg/m2 Universi ty of [place] [facility] Diastolic blood 2019-08-11 20:04:00 44 mm[Hg] Unive rsity of pressure [place] [facility] Heart rate 2019-08-11 20:04:00 70 /min Universi ty of [place] [facility] Body temperature 2019-08-11 20:04:00 36.61 Sandee Univ ersity of [place] [facility] Respiratory rate 2019-08-11 20:04:00 18 /min Univ ersity of [place] [facility] Oxygen saturation in 2019-08-11 20:04:00 91 /min University of Arterial blood by [facility] Pulse oximetry Branch Systolic blood 2019-08-11 20:04:00 107 mm[Hg] Univer sity of pressure [place] [facility] [place] Body height 2019-08-10 08:01:00 162.6 cm Universi ty of [place] [facility] Body weight 2019-08-10 08:01:00 119.296 kg Universi ty of [place] [facility] BMI 2019-08-10 08:01:00 45.14 kg/m2 [facility] Procedures Procedure Date / Time Performing Clinician Source Performed XR KNEE 3 VW LEFT 2021-04-02 20:10:39 Kinsey Green [facility] CONSENT/REFUSAL FOR 2021-04-02 17:59:31 Doctor Unassigned, [facility] DIAGNOSIS AND TREATMENT [place] [facility] [place] ASSIGNMENT OF BENEFITS 2021-03-10 20:29:46 Doctor Unassigned, [facility] [facility] PHOSPHORUS 2020-10-03 08:52:00 Brenda Teixeira [facility] MAGNESIUM 2020-10-03 08:52:00 Puneet [facility] COMP. METABOLIC PANEL 2020-10-03 08:52:00 Puneet [facility] ([id number]) [facility] CBC WITH DIFF 2020-10-03 08:52:00 Kim Teixeiraherine [facility] COMP. METABOLIC PANEL 2020-10-02 08:39:00 [facility] ([id number]) [facility] CBC WITH DIFF 2020-10-02 08:39:00 Brenda Teixeira [facility] US DUPLEX VENOUS ARM LEFT 2020-10-01 16:22:58 Brenda Teixeira [facility] - BY VASCULAR LAB [facility] COMP. METABOLIC PANEL 2020-10-01 07:45:00 Tomasa Escamilla [facility] ([id number]) [facility] CBC WITH DIFF 2020-10-01 07:45:00 [place] [facility] TROPONIN I 2020-09-30 10:56:00 Marco Levy [facility] COMP. METABOLIC PANEL 2020-09-30 10:56:00 Millie sharad [facility] ([id number]) [facility] CBC WITH DIFF 2020-09-30 10:56:00 Shaina Brito [facility] N-TERMINAL PRO-BNP 2020-09-30 08:05:00 Shaina Brito [facility] OCCULT (GUAIAC) BLOOD 2020-09-30 02:10:00 Shaina Brito [facility] FECAL LEUKOCYTES 2020-09-30 02:10:00 Shaina Brito [facility] CLOSTRIDIUM DIFFICILE 2020-09-30 02:10:00 Shaina Brito [facility] FECAL PATHOGENS BY PCR 2020-09-30 02:10:00 Shaina Brito [facility] POCT GLUCOSE (AUTOMATED) 2020-09-30 00:35:00 Rene Evans [facility] BASIC METABOLIC PANEL 2020-09-29 21:11:00 Shaina Brito [facility] (NA, K, CL, CO2, GLUCOSE, Medica l Branch BUN, CREATININE, CA) HEMOGLOBIN 2020-09-29 21:11:00 [facility] TRANSTHORACIC ECHO (TTE) 2020-09-29 16:03:00 Marco Levy [facility] HB ECG ROUTINE & RHYTHM 2020-09-29 11:18:58 Shaina Brito [facility] OSMOLALITY URINE 2020-09-29 08:56:00 Millie sharad [facility] URINE CULTURE 2020-09-29 08:56:00 Millie sharad [facility] SODIUM, URINE RANDOM 2020-09-29 08:56:00 Shaina Brito [facility] PROTEIN CREAT RATIO URINE 2020-09-29 08:56:00 Shaina Brito [facility] BLOOD CULTURE SCREEN 2020-09-29 08:32:00 Shaina Brito [facility] LACTIC ACID WHOLE BLOOD 2020-09-29 08:32:00 Shaina Brito [facility] VITAMIN B12, LEVEL 2020-09-29 08:31:00 Shaina Brito [facility] C-REACTIVE PROTEIN 2020-09-29 08:31:00 Millie sharad [facility] IRON PANEL 2020-09-29 08:31:00 Shaina Brito [facility] SEDIMENTATION RATE 2020-09-29 08:31:00 Shaina Brito [facility] DIFF CONSULT 2020-09-29 08:31:00 Millie Astria [facility] Branch CBC WITH DIFF 2020-09-29 08:31:00 Millie sharad [facility] PROTHROMBIN TIME / INR 2020-09-29 08:31:00 Shaina Brito [facility] N-TERMINAL PRO-BNP 2020-09-29 08:31:00 Shaina Brito [facility] VITAMIN D, 25-OH 2020-09-29 08:31:00 Millie [facility] PROCALCITONIN 2020-09-29 08:31:00 Millie [facility] COVID-19 (ID NOW RAPID 2020-09-29 05:10:00 Rene Evans [facility] TESTING) Medical Branch LAB ONLY COVID 2020-09-29 05:10:00 Rene Evans [facility] INTERPRETATION [facility] CT ABDOMEN PELVIS W 2020-09-29 04:56:31 Rene Evans [facility] CONTRAST [facility] Branch URINALYSIS 2020-09-29 04:19:00 Rene Evans [facility] PHOSPHORUS 2020-09-29 03:54:00 Millie sharad [facility] CREATINE KINASE 2020-09-29 03:54:00 Millie [facility] URIC ACID 2020-09-29 03:54:00 Millie [facility] LIPASE 2020-09-29 03:54:00 Rene Evans [facility] MAGNESIUM 2020-09-29 03:54:00 Millie [facility] FERRITIN SERUM 2020-09-29 03:54:00 Millie [facility] TROPONIN I 2020-09-29 03:54:00 Marco Levy [facility] [place] THYROID STIMULATING 2020-09-29 03:54:00 Shaina Brito [facility] HORMONE [facility] COMP. METABOLIC PANEL 2020-09-29 03:54:00 Rene Evans [facility] ([id number]) [facility] [place] LIPID PANEL ([id number])(TOTAL 2020-09-29 03:54:00 Shaina Brito [facility] CHOLESTEROL, [facility] TRIGLYCERIDES, HDL) CBC WITH DIFF 2020-09-29 03:54:00 Rene Evans [facility] GLYCOSYLATED HEMOGLOBIN 2020-09-29 03:54:00 Millie sharad [facility] (A1C) [facility] N-TERMINAL PRO-BNP 2020-09-29 03:54:00 Shaina Brito [facility] CONSENT/REFUSAL FOR 2020-09-29 03:18:51 Doctor Unassigned, [facility] DIAGNOSIS AND TREATMENT [place] [facility] NOTICE OF PRIVACY 2020-09-29 03:18:30 Doctor Unassigned, [facility] PRACTICES [facility] [place] [facility] ABDOMEN PELVIS W 2019-08-11 14:50:46 Corby Ca [facility] CONTRAST [facility] Branch COMP. METABOLIC PANEL 2019-08-11 08:00:00 Shaina Brito [facility] ([id number]) [facility] CBC WITH DIFFERENTIAL 2019-08-11 08:00:00 Shaina Brito [facility] CBC WITH DIFFERENTIAL 2019-08-11 08:00:00 Shaina Brito [facility] XR SMALL BOWEL SERIES 2019-08-10 21:18:47 Valente Piña [facility] XR ABDOMEN 1 VW 2019-08-10 11:52:39 Millie sharad [facility] PHOSPHORUS 2019-08-10 11:11:00 Millie [facility] [facility] CREATINE KINASE 2019-08-10 11:11:00 Millie sharad [facility] AMYLASE 2019-08-10 11:11:00 Millie [facility] LIPASE 2019-08-10 11:11:00 Shaina Brito [place] [facility] MAGNESIUM 2019-08-10 11:11:00 Shaina Brito [facility] TEST, SERUM 2019-08-10 11:11:00 Shaina Brito [facility] THYROID STIMULATING 2019-08-10 11:11:00 Shaina Brito [facility] HORMONE [facility] COMP. METABOLIC PANEL 2019-08-10 11:11:00 Shaina Brito [facility] ([id number]) [facility] LIPID PANEL ([id number])(TOTAL 2019-08-10 11:11:00 Shaina Brito [facility] CHOLESTEROL, [facility] TRIGLYCERIDES, HDL) SEDIMENTATION RATE 2019-08-10 11:11:00 Shaina Brito [facility] CBC WITH DIFFERENTIAL 2019-08-10 11:11:00 Shaina Brito [facility] GLYCOSYLATED HEMOGLOBIN 2019-08-10 11:11:00 Shaina Brito [facility] (A1C) [facility] PROTHROMBIN TIME / INR 2019-08-10 11:11:00 Shaina Brito [facility] CORONAVIRUS COVID-19 2019-08-10 09:04:00 Shaina Brito [facility] TESTING [facility] Encounters Start End Encounter Admission Attending Care Care Encounter Source Date/Time Date/Time Type Type Clinicians Facility Department ID 2021-05-06 Outpatient Kattegummul STLMLC [facility] [id number] [facility] 14:30:56 a, Madhu [facility] 2021-05-06 Outpatient Kattegummul STLMLC [facility] [id number] 14:26:04 a, Madhu 23095 [facility] 2021-05-06 Outpatient Kattegummul STLMLC [facility] [id number] -[id number] 14:05:28 a, Madhu 53197 [facility] 2021-05-06 Outpatient Kattegummul STLMLC [facility] [id number] 13:37:29 a, Madhu 95443 [facility] 2021-05-06 Outpatient Colbert, STLMLC [facility] 13:36:02 Annalise 48028 [facility] 2021-05-06 Outpatient Harley, STLMLC [facility] 11:25:36 Annalise [id number] [facility] 2021-02-09 Emergency [facility] [id number] Univers 02:25:27 ity [facility] 2021-04-07 2021-04-07 Letter Orthopedic [facility] 1.2.840.114 [id number] Univers 00:00:00 00:00:00 (Out) Clinic SPECIALTY 350.1.13.10 ity of [facility] 4.2.7.2.686 [facility] AT [phone] Nj mariacarol [address] 2021-04-02 2021-04-02 Emergency [facility] E[facility] [id number] Univers 12:58:00 15:25:00 [facility] 2021-04-02 2021-04-02 Emergency [facility] 1.2.840.114 [id number] Univers 12:58:00 15:25:00 Kinsey WHITT 350.1.13.10 ity [facility] [place].2.7.2.686 [place] [phone] [facility] 084 [place] 2021-03-11 2021-03-11 Telephone VERONIQUE Cruz 1.2.726.181 [id number] Univers 00:00:00 00:00:00 Frances SÁNCHEZ 350.1.13.10 it y of [facility] 4.2.7.2.686 Quang [phone] [facility] 019 Branch 2021-03-10 2021-03-10 Outpatient R NETTIE [facility] [id number] Univers 14:45:00 14:51:40 LEXIE ity [facility] 2021-03-10 2021-03-10 Outpatient R [facility] [id number] Univers 14:45:00 14:45:00 [id number] ity [facility] 2021-03-10 2021-03-10 Laboratory Only, Ang Db Test [facility] 1.2.8 40.114 [id number] Univers 14:29:53 14:44:53 Only Unknown, Attending HEALTH 350.1.13.10 ity of [place] 4.2.7.2.686 Quang as MARINA?BLEA [phone] Nj dical [address] MEDICAL OFFICE BUILDING 2021-03-10 2021-03-10 Orders Doctor VERONIQUE 1.2.840.114 [id number] Univers 00:00:00 00:00:00 Only Unassigned, GONZALO 350.1.13.10 ity of [place] [facility] 4.2.7.2.686 Quang as [phone] [facility] 009 Branch 2021-02-18 2021-02-20 Inpatient JAIME, [facility] [id number] 623 [place] 00:00:00 00:00:00 CHERI 379 Method i 2021-02-03 2021-02-04 Emergency X [facility] ERT [id number] Univers 21:10:00 03:21:00 GARTH ity of [facility] 2020-10-21 2020-10-27 Inpatient SYLVIA, [facility] [id number] 7943 [place] 00:00:00 00:00:00 ROBERTH 980 Method i 2020-10-06 2020-10-06 Transition TaylorYelenali 1.2.840.114 [id number] Univers 00:00:00 00:00:00 of Care Madiha Sotelo 350.1.13.10 i ty of [place]7.2.[place] [id number] [facility] 403 Branch 2020-09-28 2020-10-03 [facility] Rene Evans [facility] 1.2.840. 114 [id number] Univers 22:23:00 13:05:00 Encounter Shaina Brito 350.1.13.10 ity of [place].2.7.2.686 [place] [phone] [facility] 081 Branch 2020-09-28 2020-09-28 Orders Doctor PIPER 1.2.840.114 [id number] Univers 00:00:00 00:00:00 Only Unassigned, GONZALO 350.1.13.10 [facility] 4.2.7.2.686 [place] as [phone] [address] 2020-09-09 2020-09-12 Inpatient VIKTOR BILLINGS [facility] [id number] 29651 [place] 00:00:00 00:00:00 462 Method i 2020-08-08 2020-08-08 Outpatient Sami GERMAN [facility] [id number] Univers 15:40:00 15:40:00 TERRI ity [facility] 2020-07-11 2020-07-11 Outpatient [facility] [id number] Univers 15:40:00 15:40:00 ity [facility] 2020-06-09 2020-06-22 Inpatient VIKTOR BILLINGS [facility] [id number] 02173 [place] 00:00:00 00:00:00 836 Method i 2020-03-19 2020-03-23 Inpatient DINAKAR, [facility] [id number] 848 [place] 00:00:00 00:00:00 CHERI 742 Method i 2020-03-14 2020-03-18 Inpatient DINAKAR, [facility] [id number] 585 [place] 00:00:00 00:00:00 CHERI 157 Method i 2020-02-13 2020-02-13 Laboratory Lab, [facility] 1.2.840.114 [id number] 10:22:10 10:42:10 Only Fam Pob I Health 350.1.13.10 [place] 4.2.7.2.686 Professio [phone] nal [facility] Office Building [facility] 2020-02-13 2020-02-13 Laboratory Lab, [facility] Fam Pob I [facility] 1.2. 840.114 [id number] [facility] 10:22:10 10:42:10 Only Dulce Mari A Health 350.1.13.10 ity of [place] 4.2.7.2.686 Quang as Professio [phone] Nj dical [address] Office Building One 2019-09-28 2019-09-28 Outpatient [facility] [id number] [facility] 09:00:00 09:00:00 t [facility] ent [facility] 2019-09-18 2019-09-18 Outpatient Brazluciana Lpoez [id number] 09:30:00 09:30:00 t [facility] 2019-08-14 2019-08-14 Transition Jocelyne Alexandra 1.2.840.114 [id number] 00:00:00 00:00:00 of Care Jovanny Souza [place] 350.1.13.10 [place] 4.2.7.2.686 [phone] 403 2019-08-14 2019-08-14 Transition Jocelyne Alexandra 1.2.840.114 [id number] Univers 00:00:00 00:00:00 of Care Jovanny Souza [place] 350.1.13.10 ity of [place] 4.2.7.2.686 [place] [id number] [place] [address] Branch 2019-08-10 2019-08-11 [facility] 1.2.278.886 [id number] 02:55:00 16:09:00 Encounter Shaina Whitt 350.1.13.10 [place] 4.2.7.2.686 [place] [phone] [facility] 2019-08-10 2019-08-11 Inpatient U [facility] SHRUTI [id number] Univers 02:55:00 16:09:00 [facility] 2019-08-10 2019-08-11 [facility] [id number] [id number] Univers 02:55:00 16:09:00 Encounter Shaina [place] 350.1.13.10 ity of [place] 4.2.7.2.[place] [phone] [address] Results Test Description Test Time Test Comments Results Result Comments Source MAGNESIUM 2020-10-03 09:34:08 Test Item Value Reference Range Interpretation Comme nts MAGNESIUM (test code = 0388151693) 1.4 mg/dL 1.7-2.4 L Lab Interpretation (test code = 83984-4) [facility] (34295)2020-10-03 09:33:48 Test Item Value Reference Range Interpretation Comments NA (test code = 136 mmol/L 135-145 5106493550) K (test code = 3.3 mmol/L 3.5-5.0 L 9512651078) CL (test code = 100 mmol/L 98-108 1420398801) CO2 TOTAL (test code = 33 mmol/L 23-31 H 8900487795) AGAP (test code = 2-16 0299321772) BUN (test code = 3 mg/dL 7-23 L 5397876424) GLUCOSE (test code = 95 mg/dL 70-110 2974210362) CREATININE (test code = 0.47 mg/dL 0.50-1.04 L 5732320990) TOTAL BILI (test code = 1.5 mg/dL 0.1-1.1 H 2084983322) CALCIUM (test code = 8.1 mg/dL 8.6-10.6 L 0750870280) T PROTEIN (test code = 5.9 g/dL 6.3-8.2 L 2357610558) ALBUMIN (test code = 2.9 g/dL 3.5-5.0 L 4416441336) ALK PHOS (test code = 115 U/L 34-122 4105209771) ALTv (test code = 24 U/L 5-35 1742-6) AST(SGOT) (test code = 35 U/L 13-40 1137304895) eGFR (test code = mL/min/1.73m2 5451165738) SNOW (test code = SNOW) Association of [...] tests). Lab Interpretation Abnormal (test code = 61970-1) [facility] 09:33:28 Test Item Value Reference Range Interpretation Comments PHOSPHORUS (test code = 9496963630) 2.8 mg/dL 2.5-5.0 Lab Interpretation (test code = Normal 99206-9) [facility] WITH [id number] 09:31:46 Test Item Value Reference Range Interpretation [...] (test code = 53.8 fL 39.0-49.9 H 45345-9) RDW-CV (test code = 19.9 % 12.0-15.5 H 788-0) PLT (test code = See_Comment L [Automated 777-3) message] The sy stem which generated this result transmitted reference range : 166 - 358 10*3/ ?L. The reference r davi was not used to interpret this result as normal/abnormal . MPV (test code = 10.9 fL 9.5-12.9 90698-6) IPF % (test code = 3.6 % 1.3-7.7 Platelet count 3530637029) measured by fluorescence method. NRBC/100 WBC (test See_Comment [Automat ed code = 3062651886) message] The system which generated this result transmitted reference range : 0.0 - 10.0 /100 WBCs. The refer ence range was not u sed to interpret th is result as normal/abnormal . NRBC x10^3 (test code See_Comment [Auto mated = 1209522908) message] The s ystem which generated this result transmitted reference range : 10*3/?L. The reference range was not used to interpret this result as normal/abnormal . GRAN MAT (NEUT) % 68.1 % (test code = 770-8) IMM GRAN % (test code 1.10 % = 6190904782) LYMPH % (test code = 15.5 % 736-9) MONO % (test code = 11.3 % 5905-5) EOS % (test code = 3.4 % 713-8) BASO % (test code = 0.6 % 706-2) GRAN MAT x10^3(ANC) 2.42 10*3/uL 1.88-7.09 (test code = 8852007615) IMM GRAN x10^3 (test 0.04 10*3/uL 0.00-0.06 code = 1006517427) LYMPH x10^3 (test code 0.55 10*3/uL 1.32-3.29 L = 731-0) MONO x10^3 (test code 0.40 10*3/uL 0.33-0.92 = 742-7) EOS x10^3 (test code = 0.12 10*3/uL 0.03-0.39 711-2) BASO x10^3 (test code <0.03 0.01-0.07 = 704-7) Lab Interpretation Abnormal (test code = 28211-2) [facility] WITH [id number] 10:47:09 Test Item Value Reference Range Interpretation [...] (test code = 52.2 fL 39.0-49.9 H 46547-4) RDW-CV (test code = 18.6 % 12.0-15.5 H 788-0) PLT (test code = See_Comment L [Automated 777-3) message] The sy stem which generated this result transmitted reference range : 166 - 358 10*3/ ?L. The reference r davi was not used to interpret this result as normal/abnormal . MPV (test code = 10.1 fL 9.5-12.9 03300-4) IPF % (test code = 3.2 % 1.3-7.7 Platelet count 6102049910) measured by fluorescence method. NRBC/100 WBC (test See_Comment [Automat ed code = 8900012698) message] The system which generated this result transmitted reference range : 0.0 - 10.0 /100 WBCs. The refer ence range was not u sed to interpret th is result as normal/abnormal . NRBC x10^3 (test code See_Comment [Auto mated = 0068222435) message] The s ystem which generated this result transmitted reference range : 10*3/?L. The reference range was not used to interpret this result as normal/abnormal . GRAN MAT (NEUT) % 65.1 % (test code = 770-8) IMM GRAN % (test code 1.20 % = 0194767642) LYMPH % (test code = 16.9 % 736-9) MONO % (test code = 11.5 % 5905-5) EOS % (test code = 4.5 % 713-8) BASO % (test code = 0.8 % 706-2) GRAN MAT x10^3(ANC) 1.58 10*3/uL 1.88-7.09 L (test code = 2689965861) IMM GRAN x10^3 (test 0.03 10*3/uL 0.00-0.06 code = 7853066158) LYMPH x10^3 (test code 0.41 10*3/uL 1.32-3.29 L = 731-0) MONO x10^3 (test code 0.28 10*3/uL 0.33-0.92 L = 742-7) EOS x10^3 (test code = 0.11 10*3/uL 0.03-0.39 711-2) BASO x10^3 (test code <0.03 0.01-0.07 = 704-7) POLYCHROMASIA (test 2+ See_Comment [Automa josemanuel code = 92721-9) message] The system which generated this result transmitted reference range : 2+. The referen ce range was not u sed to interpret th is result as normal/abnormal . LG GRAN LYMPHS (test Rare Rare code = 0900759393) Lab Interpretation Abnormal (test code = 97156-6) [facility]. METABOLIC PANEL (97358)2020-10-02 10:19:28 Test Item Value Reference Range Interpretation Comments NA (test code = 135 mmol/L 135-145 2952475498) K (test code = 3.4 mmol/L 3.5-5.0 L 2197020599) CL (test code = 104 mmol/L 98-108 8740512364) CO2 TOTAL (test code = 27 mmol/L 23-31 6138326895) AGAP (test code = 2-16 2733954778) BUN (test code = 4 mg/dL 7-23 L 1082682252) GLUCOSE (test code = 97 mg/dL 70-110 1926152063) CREATININE (test code = 0.45 mg/dL 0.50-1.04 L 1227798750) TOTAL BILI (test code = 1.7 mg/dL 0.1-1.1 H 7318947883) CALCIUM (test code = 8.2 mg/dL 8.6-10.6 L 6937958809) T PROTEIN (test code = 6.0 g/dL 6.3-8.2 L 8208765197) ALBUMIN (test code = 3.1 g/dL 3.5-5.0 L 4075051488) ALK PHOS (test code = 120 U/L 34-122 6556692189) ALTv (test code = 26 U/L 5-35 1742-6) AST(SGOT) (test code = 39 U/L 13-40 0517558581) eGFR (test code = mL/min/1.73m2 0095441865) SNOW (test code = SNOW) Association of [...] tests). Lab Interpretation Abnormal (test code = 07833-3) [facility] COVID [id number] 02:50:27COVID DMT InterpretationInterpretation/Recommendations: Molecular NAAT Tests for [...] COVID-19 testing the patient has had at [facility], including molecular NAAT testing (more commonly known as PCR testing and Rapid ID Now testing) and antibody testing. It does not take into account any testing that a patient has had outside of the [facility] medical record. [facility] LABORATORY SERVICESCOVID Resu [id number]-HjV-3 NAAT (no units) ? ? Date ? Value ? 02/13/2020 ? Not Detected ? SARS-CoV-2 Rapid ID NOW (no units) ? ? Date ? Value ? 09/29/2020 ? Not Detected ? ? ? 08/10/2019 ? Not Detected ? [facility] SERVICESUnTexas [facility] WITH [id number] 10:31:29 Test Item Value Reference Range Interpretation [...] (test code = 52.3 fL 39.0-49.9 H 65935-0) RDW-CV (test code = 18.4 % 12.0-15.5 H 788-0) PLT (test code = See_Comment LL [Automated 777-3) message] The sy stem which generated this result transmitted reference range : 166 - 358 10*3/ ?L. The reference r davi was not used to interpret this result as normal/abnormal . MPV (test code = 11.2 fL 9.5-12.9 49959-2) IPF % (test code = 3.9 % 1.3-7.7 Platelet count 3220898683) measured by fluorescence method. NRBC/100 WBC (test See_Comment [Automat ed code = 7370675218) message] The system which generated this result transmitted reference range : 0.0 - 10.0 /100 WBCs. The refer ence range was not u sed to interpret th is result as normal/abnormal . NRBC x10^3 (test code <0.01 See_Comment [Auto mated = 0228365054) message] The s ystem which generated this result transmitted reference range : 10*3/?L. The reference range was not used to interpret this result as normal/abnormal . GRAN MAT (NEUT) % 57.5 % (test code = 770-8) IMM GRAN % (test code 0.50 % = 8522627678) LYMPH % (test code = 20.7 % 736-9) MONO % (test code = 13.3 % 5905-5) EOS % (test code = 6.9 % 713-8) BASO % (test code = 1.1 % 706-2) GRAN MAT x10^3(ANC) 1.08 10*3/uL 1.88-7.09 L (test code = 8808432577) IMM GRAN x10^3 (test <0.03 0.00-0.06 code = 8651253800) LYMPH x10^3 (test code 0.39 10*3/uL 1.32-3.29 L = 731-0) MONO x10^3 (test code 0.25 10*3/uL 0.33-0.92 L = 742-7) EOS x10^3 (test code = 0.13 10*3/uL 0.03-0.39 711-2) BASO x10^3 (test code <0.03 0.01-0.07 = 704-7) BASO STIPPLING (test Present A code = 703-9) ELLIPTO/OVAL (test 2+ See_Comment A [Automat ed code = 72761-1) message] The system which generated this result transmitted reference range : (none). The reference range was not used to interpret this result as normal/abnormal . POLYCHROMASIA (test 2+ See_Comment [Automa josemanuel code = 40776-4) message] The system which generated this result transmitted reference range : 2+. The referen ce range was not u sed to interpret th is result as normal/abnormal . Lab Interpretation Abnormal (test code = 74296-4) [facility] (38842)2020-10-01 09:19:22 Test Item Value Reference Range Interpretation Comments NA (test code = 135 mmol/L 135-145 2329815019) K (test code = 4.0 mmol/L 3.5-5.0 4921265883) CL (test code = 107 mmol/L 98-108 5792057748) CO2 TOTAL (test code = 24 mmol/L 23-31 9389531507) AGAP (test code = 2-16 7965004865) BUN (test code = 7 mg/dL 7-23 6299121882) GLUCOSE (test code = 93 mg/dL 70-110 7162751245) CREATININE (test code = 0.47 mg/dL 0.50-1.04 L 6678382194) TOTAL BILI (test code = 1.6 mg/dL 0.1-1.1 H 2421364158) CALCIUM (test code = 8.1 mg/dL 8.6-10.6 L 0367510762) T PROTEIN (test code = 5.8 g/dL 6.3-8.2 L 4895050042) ALBUMIN (test code = 2.8 g/dL 3.5-5.0 L 1122866035) ALK PHOS (test code = 106 U/L 34-122 6743307880) ALTv (test code = 23 U/L 5-35 1742-6) AST(SGOT) (test code = 39 U/L 13 8605817718) eGFR (test code = mL/min/1.73m2 0343008281) SNOW (test code = SNOW) Association of [...] tests). Lab Interpretation Abnormal (test code = 86513-0) [id number] 20:47:45 Test Item Value Reference Range Interpretation Comments TROPONIN I (test 0.002 ng/mL See_Comment [Automated code = 4133349587) message] The system which generated this result [...] ? Lab Interpretation Normal (test code = 03215-0) [facility] [id number] 19:11:57 Test Item Value Reference Range Interpretation Comments URINE CULTURE (test code <10,000 CFU/mL = 630-4) Gram-Positive Cocci [facility] BY [id number] 18:17:03 Test Item Value Reference Range Interpretation Comments Campylobacter (jejuni, Negative Negative, coli and upsaliensis) Indeterminate, (test code = 69606-4) See comment Plesiomonas shigelloides Negative Negative, (test code = 95830-3) Indeterminate, See comment Salmonella (test code = Negative Negative, 27443-2) Indeterminate, See comment Yersinia enterocolitica Negative Negative, (test code = 63325-4) Indeterminate, See comment Vibrio (test code = Negative Negative, 33772-3) Indeterminate, See comment Vibrio cholerae (test Negative Negative, code = 21392-9) Indeterminate, See comment Enteroaggregative E. Negative Negative, coli (EAEC) (test code = Indeterminate, 17721-2) See comment Enteropathogenic E. coli Negative Negative, N/A, (EPEC) (test code = Indeterminate, 34293-9) See comment Enterotoxigenic E. coli Negative Negative, (ETEC) (test code = Indeterminate, 28468-2) See comment Shiga toxin-Producing E. Negative Negative, coli (STEC) (test code = Indeterminate, 80224-3) See comment Shigella/Enteroinvasive Negative Negative, E. coli (EIEC) (test Indeterminate, code = 12418-5) See comment Cryptosporidium (test Negative Negative, code = 34917-3) Indeterminate, See comment Cyclospora cayetanensis Negative Negative, (test code = 56988-8) Indeterminate, See comment Entamoeba histolytica Negative Negative, (test code = 49544-9) Indeterminate, See comment Giardia lamblia (test Negative Negative, code = 67204-5) Indeterminate, See comment Adenovirus F 40/41 (test Negative Negative, code = 43156-7) Indeterminate, See comment Astrovirus (test code = Negative Negative, 70817-9) Indeterminate, See comment Norovirus GI/GII (test Negative Negative, code = 05775-2) Indeterminate, See comment Rotavirus A (test code = Negative Negative, 96510-5) Indeterminate, See comment Sapovirus (test code = Negative Negative, 12205-3) Indeterminate, See comment Clostridioides Positive Negative, A (Clostridium) difficile Indeterminate, Toxin A/B (test code = See comment 17920-0) SNOW (test code = SNOW) Based on NeedArray GI Panel package insert, the NeedArray GI Panel contains a single multiplexed assay [...] Clostridium difficile toxin A/B Detected. Based the Cepheid Xpert C. difficile/Epi assay package insert, Xpert C. difficile/Epi assay detects the toxin B gene (tcdB), the binary toxin gene (CDT), and the dpaewj-sdds-xfha deletion at nucleotide 117 within the gene [...] organism. Lab Interpretation (test Abnormal code = 61515-0) [facility] [id number] 14:26:32 Test Item Value Reference Range Interpretation Comments Occult (guaiac) Blood (test code = Negative Negative 2335-8) Lab Interpretation (test code = Normal 54742-3) [facility] WITH [id number] 13:54:12 Test Item Value Reference Range Interpretation [...] (test code = 52.9 fL 39.0-49.9 H 36756-4) RDW-CV (test code = 18.3 % 12.0-15.5 H 788-0) PLT (test code = See_Comment LL [Automated 777-3) message] The sy stem which generated this result transmitted reference range : 166 - 358 10*3/ ?L. The reference r davi was not used to interpret this result as normal/abnormal . MPV (test code = 10.8 fL 9.5-12.9 24687-8) IPF % (test code = 4.2 % 1.3-7.7 Platelet count 8782559163) measured by fluorescence method. NRBC/100 WBC (test See_Comment [Automat ed code = 7153084127) message] The system which generated this result transmitted reference range : 0.0 - 10.0 /100 WBCs. The refer ence range was not u sed to interpret th is result as normal/abnormal . NRBC x10^3 (test code <0.01 See_Comment [Auto mated = 5399074313) message] The s ystem which generated this result transmitted reference range : 10*3/?L. The reference range was not used to interpret this result as normal/abnormal . GRAN MAT (NEUT) % 60.0 % (test code = 770-8) IMM GRAN % (test code 0.40 % = 0595865919) LYMPH % (test code = 20.6 % 736-9) MONO % (test code = 11.3 % 5905-5) EOS % (test code = 6.9 % 713-8) BASO % (test code = 0.8 % 706-2) GRAN MAT x10^3(ANC) 1.49 10*3/uL 1.88-7.09 L (test code = 6348499857) IMM GRAN x10^3 (test <0.03 0.00-0.06 code = 2317811400) LYMPH x10^3 (test code 0.51 10*3/uL 1.32-3.29 L = 731-0) MONO x10^3 (test code 0.28 10*3/uL 0.33-0.92 L = 742-7) EOS x10^3 (test code = 0.17 10*3/uL 0.03-0.39 711-2) BASO x10^3 (test code <0.03 0.01-0.07 = 704-7) Lab Interpretation Abnormal (test code = 50428-5) [facility][id number])2020-09-30 12:47:49 Test Item Value Reference Range Interpretation Comments NA (test code = 135 mmol/L 135-145 5302803273) K (test code = 4.0 mmol/L 3.5-5.0 0631974587) CL (test code = 108 mmol/L 98-108 5455789238) CO2 TOTAL (test code = 23 mmol/L 23-31 2285404587) AGAP (test code = 2-16 5631037288) BUN (test code = 8 mg/dL 7-23 8479338063) GLUCOSE (test code = 109 mg/dL 70-110 3975020601) CREATININE (test code = 0.52 mg/dL 0.50-1.04 2248320873) TOTAL BILI (test code = 1.7 mg/dL 0.1-1.1 H 9200139402) CALCIUM (test code = 8.0 mg/dL 8.6-10.6 L 6655999581) T PROTEIN (test code = 5.7 g/dL 6.3-8.2 L 5237265525) ALBUMIN (test code = 2.7 g/dL 3.5-5.0 L 9623649405) ALK PHOS (test code = 106 U/L 34-122 0179257666) ALTv (test code = 22 U/L 5-35 1742-6) AST(SGOT) (test code = 34 U/L 13-40 [id number]) eGFR (test code = mL/min/1.73m2 4723037341) SNOW (test code = SNOW) Association of [...] tests). Lab Interpretation Abnormal (test code = 91457-4) [facility] [id number] 11:49:39 Test Item Value Reference Range Interpretation Comments Fecal Leukocytes (test code = Positive Negative A 5865129243) Lab Interpretation (test code = Abnormal 93483-4) [facility] [id number] 10:20:53 Test Item Value Reference Range Interpretation Comments NT-proBNP (test code 68 pg/mL See_Comment [Autom ated = 2033750240) message] The system which generated this result transmitted reference range : <=125. The reference range was not used to interpret this result as normal/abnormal . SNOW (test code = SNOW) Biotin has been reported to cause a negative bias, interpret results relative to patient's use of biotin. Lab Interpretation Normal (test code = 67961-1) [facility]OSTRIDIUM DIFFICILE [id number] 05:18:16 Test Item Value Reference Range Interpretation Comments Clostridioides (Clostridium) Negative Negative difficile (test code = 41511-8) Lab Interpretation (test code = Normal 22758-0) [facility]SE (AUTOMATED)2020-09-30 00:54:42 Test Item Value Reference Range Interpretation Comments POCT GLU (test code = 5628102277) 111 mg/dL 70-110 H Lab Interpretation (test code = Abnormal 39988-5) [facility] (NA, K, CL, CO2, GLUCOSE, BUN, CREATININE, CA)2020-09-29 22:08:22 Test Item Value Reference Range Interpretation Comments NA (test code = 135 mmol/L 135-145 4974153592) K (test code = 3.7 mmol/L 3.5-5.0 9192197140) CL (test code = 108 mmol/L 98-108 3221349225) CO2 TOTAL (test code = 22 mmol/L 23-31 L 4359063108) AGAP (test code = 2-16 6852038655) BUN (test code = 9 mg/dL 7-23 6031454859) GLUCOSE (test code = 104 mg/dL 70-110 6124961455) CREATININE (test code = 0.51 mg/dL 0.50-1.04 4422986346) CALCIUM (test code = 7.9 mg/dL 8.6-10.6 L 1993142518) eGFR (test code = mL/min/1.73m2 0902088847) SNOW (test code = SNOW) Association of [...] tests). Lab Interpretation Abnormal (test code = 20889-3) [facility]MOGLOBIN2021-06-21 21:41:20 Test Item Value Reference Range Interpretation Comments HGB (test code = 718-7) 7.4 g/dL 11.6-15.0 L Lab Interpretation (test code = Abnormal 76415-5) [facility]IT[facility]IN B12, [id number] 20:39:52 Test Item Value Reference Range Interpretation Comments VIT B12 (test code = 212 pg/mL 240-930 L 0110059531) SNOW (test code = SNOW) Biotin has been reported to cause a positive bias, interpret results relative to patient's use of biotin. 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.[facility]-REACTIVE [id number] 17:01:56 Test Item Value Reference Range Interpretation Comments CRP (test code = 6862581022) 4.7 mg/dL <0.8 H Lab Interpretation (test code = Abnormal 92769-4) [facility] D, [id number] 16:43:29 Test Item Value Reference Range Interpretation Comments VIT D 25OH (test code = <13 25-80 L 17563-4) SNOW (test code = SNOW) Deficiency: <20 ng/mLInsufficiency: 20-24 ng/mLOptimal: 25-80 ng/mL Lab Interpretation (test Abnormal code = 64086-2) [facility]PROCALCITONIN2021-06-21 16:15:30 Test Item Value Reference Range Interpretation Comments Procalcitonin (test 0.08 ng/mL <0.07 H code = 5511343756) SNOW (test code = SNOW) INTERPRETATION OF [...] lung abscess/empyema. For further information please refer to:[email or web address] Lab Interpretation Abnormal (test code = 62575-5) [facility]aOSMOLALITY [id number] 15:35:14 Test Item Value Reference Range Interpretation Comments OSMO U (test code = See_Comment [Automa josemanuel message] 7093489407) The system Readmill generated this result transmitted ref erence range: 50-1,100 mOsm/kg. The re ference range was not u sed to interpret this result as normal/abnor mal. Lab Interpretation (test Normal code = 40752-5) [facility]aTROPONIN [id number] 14:04:56 Test Item Value Reference Range Interpretation Comments TROPONIN I (test 0.002 ng/mL See_Comment [Automated code = 2621024353) message] The system which generated this result [...] ? Lab Interpretation Normal (test code = 12982-2) [facility] ABDOMEN PELVIS W [id number] 13:37:17 1. ?Findings concerning for infectious or inflammatory colitis mostpronounced in the cecum, ascending colon and rectosigmoid with probableunderlying portal colopathy. 2. ?Cirrhotic liver morphology with portal hypertension manifested bysplenomegaly, extensive portosystemic collaterals and small volume ascites. 3. ?Nonobstructive punctate right nephrolithiasis. Preliminary Report Dictated by Resident: Láazro Bain ?MD Marguerite., have reviewed this study [...] reviewed this study and agree with theabove report.[facility] WITH [id number] 11:41:25 Test Item Value Reference Range Interpretation Comments WBC (test code = See_Comment L [Automated 5790-2) message] The system which generated this result [...] (test code = 52.4 fL 39.0-49.9 H 25069-5) RDW-CV (test code = 18.2 % 12.0-15.5 H 788-0) PLT (test code = See_Comment LL [Automated 777-3) message] The system which generated this result transmit josemanuel reference range : 166 - 358 10*3/ ?L. The reference range was not u sed to interpret th is result as normal/abnormal . MPV (test code = Not Measure d 05832-8) IPF % (test code = 4.3 % 1.3-7.7 Platelet count 2607240502) measured by fluorescence method. NRBC/100 WBC (test See_Comment [Automat ed code = 6305465111) message] The system which generated this result transmit josemanuel reference range : 0.0 - 10.0 /100 WBCs. The reference range was not used to interpret this result as normal/abnormal . NRBC x10^3 (test code <0.01 See_Comment [Auto mated = 5457541483) message] The system which generated this result transmit josemanuel reference range : 10*3/?L. The reference range was not used to interpret this result as normal/abnormal . GRAN MAT (NEUT) % 74.4 % (test code = 770-8) IMM GRAN % (test code 0.50 % = 9724857958) LYMPH % (test code = 10.3 % 736-9) MONO % (test code = 12.3 % 5905-5) EOS % (test code = 2.0 % 713-8) BASO % (test code = 0.5 % 706-2) GRAN MAT x10^3(ANC) 3.02 10*3/uL 1.88-7.09 (test code = 9317465249) IMM GRAN x10^3 (test <0.03 0.00-0.06 code = 6124943590) LYMPH x10^3 (test 0.42 10*3/uL 1.32-3.29 L code = 731-0) MONO x10^3 (test code 0.50 10*3/uL 0.33-0.92 = 742-7) EOS x10^3 (test code 0.08 10*3/uL 0.03-0.39 = 711-2) BASO x10^3 (test code <0.03 0.01-0.07 = 704-7) PLT ESTIMATE (test Decreased Normal A code = 9317-9) SNOW (test code = SNOW) CBC smear reduced platelet Lab Interpretation Abnormal (test code = 75246-5) [facility] [id number] 11:07:24 Test Item Value Reference Range Interpretation Comments NT-proBNP (test code 79 pg/mL See_Comment [Autom ated = 7212964422) message] The system which generated this result transmitted reference range : <=125. The reference range was not used to interpret this result as normal/abnormal . SNOW (test code = SNOW) Biotin has been reported to cause a negative bias, interpret results relative to patient's use of biotin. Lab Interpretation Normal (test code = 71472-7) [facility]aIRON [id number] 11:04:41 Test Item Value Reference Range Interpretation Comments IRON (test code = 9682471541) 31 ug/dL 50-160 L TIBC (test code = 5919040279) 295 ug/dL 250-410 % FE SAT (test code = 7920637496) 11 % 20-50 L Lab Interpretation (test code = Abnormal 86740-0) [facility]aPROTEIN CREAT RATIO URINE [id number] 10:57:19 Test Item Value Reference Range Interpretation Comments T. PROT U (test code = 2888-6) 9 mg/dL CREAT U (test code = 6323647618) 187.5 mg/dL Protein/Creatinine Ratio Urine 0.0-2.0 (test code = 2788712865) [facility]aSODIUM, URINE [id number] 10:53:21 Test Item Value Reference Range Interpretation Comments NA URINE (test code = 0866733607) 30 mmol/L [facility]aSEDIMENTATION [id number] 10:33:04 Test Item Value Reference Range Interpretation Comments ESR (test code = See_Comment [Automated message] 7949570527) The system Readmill generated this result transmitted ref erence range: 0 - 20 m m/HR. The reference r davi was not used to interpret this result as normal/abnor mal. Lab Interpretation (test Normal code = 74332-4) [facility]aPROTHROMBIN TIME / [id number] 09:43:39 Test Item Value Reference Range Interpretation Comments PROTIME PATIENT (test See_Comment H [Auto mated message] code = 5964-2) The system [employer] generated this result transmitted ref erence range: 12.0 - 1 4.7 Seconds. The reference range was not used to int erpret this result as normal/abnormal . INR (test code = 6301-6) Nor mal INR <1.1; Warfarin Therap eutic range 2.0 to 3. 0 or 2.5 to 3.5, dep ending upon the indica tions. Lab Interpretation (test Abnormal code = 61141-2) [facility]aLactic Acid Whole [id number] 08:42:38 Test Item Value Reference Range Interpretation Comments LACTIC ACID (test code = 1.47 mmol/L 0.50-2.20 3201724537) Lab Interpretation (test code = Normal 40007-1) [facility]aFERRITIN [id number] 07:31:09 Test Item Value Reference Range Interpretation Comments FERRITIN (test code = 12.2 ng/mL 11.0-264.0 7246978284) SNOW (test code = SNOW) Biotin has been reported to cause a negative bias, interpret results relative to patient's use of biotin. Lab Interpretation (test Normal code = 94986-9) [facility]aTHYROID STIMULATING [id number] 07:27:08 Test Item Value Reference Range Interpretation Comments TSH (test code = See_Comment [Automated message] 5979491323) The system Readmill generated this result transmitted ref erence range: 0.45 - 4 .70 mIU/L. The refe rence range was not u sed to interpret this result as normal/abnor mal. Lab Interpretation (test Normal code = 42528-3) [facility]aGLYCOSYLATED HEMOGLOBIN (A1C)2020-09-29 07:05:40 Test Item Value Reference Range Interpretation Comments HGB A1C (test code = 5.0 % 4.0-5.7 4548-4) SNOW (test code = SNOW) Reference RangesNormal: <5.7%Prediabetes: 5.7 - 6.4%Diabetes: > 6.5% Lab Interpretation (test Normal code = 18632-7) [facility]aURIC [id number] 07:05:35 Test Item Value Reference Range Interpretation Comments URIC ACID (test code = 6346516155) 4.2 mg/dL 2.9-6.0 Lab Interpretation (test code = Normal 14081-2) [facility]aCREATINE [id number] 07:05:30 Test Item Value Reference Range Interpretation Comments CK (test code = 4648858686) 192 U/L 33-194 Lab Interpretation (test code = Normal 70700-7) [facility]-TERMINAL [id number] 07:05:30 Test Item Value Reference Range Interpretation Comments NT-proBNP (test code 94 pg/mL See_Comment [Autom ated = 0675188906) message] The system which generated this result transmitted reference range : <=125. The reference range was not used to interpret this result as normal/abnormal . SNOW (test code = SNOW) Biotin has been reported to cause a negative bias, interpret results relative to patient's use of biotin. Lab Interpretation Normal (test code = 06506-8) [facility]aMAGNESIUM2021-06-21 07:04:24 Test Item Value Reference Range Interpretation Comments MAGNESIUM (test code = 0418710906) 1.8 mg/dL 1.7-2.4 Lab Interpretation (test code = Normal 85219-1) [facility]aPHOSPHORUS2021-06-21 07:03:39 Test Item Value Reference Range Interpretation Comments PHOSPHORUS (test code = 7787454281) 2.2 mg/dL 2.5-5.0 L Lab Interpretation (test code = Abnormal 94862-9) [facility]aLIPID PANEL (53278)(TOTAL CHOLESTEROL, TRIGLYCERIDES, HDL)2020-09-29 06:56:06 Test Item Value Reference Range Interpretation Comments CHOL (test code = 132 mg/dL 120-200 5599839230) HDL (test code = 41 mg/dL >50 L 9286306846) HDLC RATIO (test code = See_Comment [Au tomated message] 2381952107) The system Readmill generated this result transmit josemanuel reference range : <=4.5. The refe rence range was not u sed to interpret th is result as normal/abnormal . TRIG (test code = 73 mg/dL 30-170 5869875513) LDL CHOL (test code = 76 mg/dL See_Comment [Auto mated message] 25311-3) The system Readmill generated this result transmit josemanuel reference range : <=160. The refe rence range was not u sed to interpret th is result as normal/abnormal . VLDL (test code = 15 mg/dL 5-60 5028935558) Lab Interpretation (test Abnormal code = 08641-7) [facility] (ID NOW RAPID TESTING)2020-09-29 06:24:26 Test Item Value Reference Range Interpretation Comments SARS-CoV-2 Rapid ID NOW Not Detected Not Detected (test code = 30855-9) SNOW (test code = SNOW) ID NOW COVID-19 Assay is an isothermal nucleic acid amplification test intended for the qualitative detection of nucleic acid from SARS-CoV-2 viral RNA in nasopharyngeal (BLASTING MINER) specimens. It is used under Emergency Use [...] indicated. Lab Interpretation Normal (test code = 29615-4) [facility]INALYSIS2021-06-21 04:43:31 Test Item Value Reference Range Interpretation Comments APPEARANCE (test code = Clear Clear 4541293013) COLOR (test code = Rosanne Yellow A 8918877311) PH (test code = 4.8-8.0 5409339344) SP GRAVITY (test code = 1.003-1.030 1067531926) GLU U QUAL (test code = Normal Normal 0511754858) BLOOD (test code = Negative Negative 8336191432) KETONES (test code = Negative Negative 3843286511) PROTEIN (test code = 30 mg/dL Negative A 2887-8) UROBILIN (test code = Normal Normal 0290118080) BILIRUBIN (test code = Negative Negative 9033229895) NITRITE (test code = Negative Negative 3603764340) LEUK RANULFO (test code = 25/uL Negative A 1016530540) RBC/HPF (test code = See_Comment [Autom ated message] 9245957362) The system Readmill generated this result transmitted ref erence range: 0 - 3 HP F. The reference range was not used to int erpret this result as normal/abnormal . WBC/HPF (test code = See_Comment [Autom ated message] 3778206342) The system Readmill generated this result transmitted ref erence range: 0 - 5 HP F. The reference range was not used to int erpret this result as normal/abnormal . BACTERIA (test code = Few Negative A 1852730499) MUCOUS (test code = Moderate Negative LPF A 6553917502) SQ EPITH (test code = HPF 9594951056) Lab Interpretation (test Abnormal code = 86022-4) [facility]aCBC WITH [id number] 04:39:35 Test Item Value Reference Range Interpretation Comments WBC (test code = See_Comment [Automated 1290-2) message] The system which generated this result transmit josemanuel reference range : 4.30 - 11.10 10*3/?L. The reference range was not used to interpret this result as normal/abnormal . RBC (test code = See_Comment L [Automated 569-8) message] The system which generated this result [...] (test code = 51.3 fL 39.0-49.9 H 93859-4) RDW-CV (test code = 18.1 % 12.0-15.5 H 788-0) PLT (test code = See_Comment L [Automated 777-3) message] The system which generated this result transmit josemanuel reference range : 166 - 358 10*3/ ?L. The reference range was not u sed to interpret th is result as normal/abnormal . MPV (test code = 11.1 fL 9.5-12.9 26670-5) IPF % (test code = 3.7 % 1.3-7.7 Platelet count 9452612158) measured by fluorescence method. NRBC/100 WBC (test See_Comment [Automat ed code = 0786944992) message] The system which generated this result transmit josemanuel reference range : 0.0 - 10.0 /100 WBCs. The reference range was not used to interpret this result as normal/abnormal . NRBC x10^3 (test code <0.01 See_Comment [Auto mated = 4496982491) message] The system which generated this result transmit josemanuel reference range : 10*3/?L. The reference range was not used to interpret this result as normal/abnormal . GRAN MAT (NEUT) % 76.4 % (test code = 770-8) IMM GRAN % (test code 0.80 % = 8939938760) LYMPH % (test code = 9.4 % 736-9) MONO % (test code = 11.3 % 5905-5) EOS % (test code = 1.5 % 713-8) BASO % (test code = 0.6 % 706-2) GRAN MAT x10^3(ANC) 4.07 10*3/uL 1.88-7.09 (test code = 6843183482) IMM GRAN x10^3 (test 0.04 10*3/uL 0.00-0.06 code = 6841078716) LYMPH x10^3 (test 0.50 10*3/uL 1.32-3.29 L code = 731-0) MONO x10^3 (test code 0.60 10*3/uL 0.33-0.92 = 742-7) EOS x10^3 (test code 0.08 10*3/uL 0.03-0.39 = 711-2) BASO x10^3 (test code 0.03 10*3/uL 0.01-0.07 = 704-7) PLT ESTIMATE (test Decreased Normal A code = 9317-9) SNOW (test code = SNOW) Juan slide adgrees to decreased Platelet Lab Interpretation Abnormal (test code = 44506-2) [facility]. METABOLIC PANEL (23536)2020-09-29 04:25:42 Test Item Value Reference Range Interpretation Comments NA (test code = 134 mmol/L 135-145 L 4194156672) K (test code = 3.2 mmol/L 3.5-5.0 L 4010607693) CL (test code = 104 mmol/L 98-108 0080028761) CO2 TOTAL (test code = 24 mmol/L 23-31 5199871569) AGAP (test code = 2-16 5578542967) BUN (test code = 8 mg/dL 7-23 1793537231) GLUCOSE (test code = 105 mg/dL 70-110 3695476857) CREATININE (test code = 0.51 mg/dL 0.50-1.04 6143511733) TOTAL BILI (test code = 2.5 mg/dL 0.1-1.1 H 5837755593) CALCIUM (test code = 8.2 mg/dL 8.6-10.6 L 6267362704) T PROTEIN (test code = 6.3 g/dL 6.3-8.2 2889942364) ALBUMIN (test code = 3.1 g/dL 3.5-5.0 L 5420722737) ALK PHOS (test code = 136 U/L 34-122 H 9328352607) ALTv (test code = 24 U/L 5-35 1742-6) AST(SGOT) (test code = 30 U/L 13-40 0978544940) eGFR (test code = mL/min/1.73m2 2341187683) SNOW (test code = SNOW) Association of [...] tests). 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 employed in a healthcare setting (test code = 27944-1) Whether the patient has symptoms related to condition of interest (test code = 90666-5) Patient was hospitalized because of this condition (test code = 73035-7) Whether the patient was admitted to intensive care unit (ICU) for condition of interest (test code = 90530-4) Whether patient resides in a congregate care setting (test code = 37391-2) SARS-CoV-2 (COVID-19) RNA [Presence] in Respiratory specimen by HELENA with probe [id number] 02:47:43 Test Item Value Reference Range Interpretation Comments SARS-CoV-2 (COVID-19) RNA Not detected Not-Detected [Presence] in Respiratory specimen by HELENA with probe detection (test code = 73411-0) SARS-CoV-2 (COVID-19) RNA [Presence] in Respiratory specimen by HELENA with probe [id number] 16:32:37 Test Item Value Reference Range Interpretation Comments SARS-CoV-2 (COVID-19) RNA Not detected Not-Detected [Presence] in Respiratory specimen by HELENA with probe detection (test code = 70956-9) SARS-CoV-2 (COVID-19) RNA [Presence] in Respiratory specimen by HELENA with probe [id number] 05:29:57 Test Item Value Reference Range Interpretation Comments SARS-CoV-2 (COVID-19) RNA Not detected Not-Detected [Presence] in Respiratory specimen by HELENA with probe detection (test code = 19089-6) CT ABDOMEN PELVIS W [id number] 19:27:49 1. ?No evidence of small bowel obstruction. 2. 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 3. Nonspecific mesenteric inflammation in the pericecal region with changesof prior appendectomy. There is no associated wall thickening in theadjacent bowel. This could be infectious and appears similar on the priorstudy. Preliminary Report Dictated by Resident: Frandy Denise MD., have reviewed this study and agree [...] reviewed this study and agree with the abovereport.[facility] WITH [id number] 11:56:00 Test Item Value Reference Range Interpretation Comments WBC (test code = See_Comment L [Automated 8990-2) message] The sy stem which generated this [...] (test code = 58.0 fL 39-49.9 H 38202-5) RDW-CV (test code = 16.6 % 12-15.5 H 788-0) PLT (test code = See_Comment LL [Automated 777-3) message] The sy stem which generated this result transmitted reference range : 166 - 358 10*3/ ?L. The reference r davi was not used to interpret this result as normal/abnormal . MPV (test code = 11.0 fL 9.5-12.9 13318-3) IPF % (test code = 5.5 % 1.3-7.7 Platelet count 5964475373) measured by fluorescence method. NRBC/100 WBC (test See_Comment [Automat ed code = 6925987108) message] The system which generated this result transmitted reference range : 0.0 - 10.0 /100 WBCs. The refer ence range was not u sed to interpret th is result as normal/abnormal . NRBC x10^3 (test code <0.01 See_Comment [Auto mated = 2631038348) message] The s ystem which generated this result transmitted reference range : 10*3/?L. The reference range was not used to interpret this result as normal/abnormal . GRAN MAT (NEUT) % 57.6 % (test code = 770-8) IMM GRAN % (test code 0.00 % = 3910296137) LYMPH % (test code = 27.1 % 736-9) MONO % (test code = 11.8 % 5905-5) EOS % (test code = 3.1 % 713-8) BASO % (test code = 0.4 % 706-2) GRAN MAT x10^3(ANC) 1.47 10*3/uL 1.88-7.09 L (test code = 2599600232) IMM GRAN x10^3 (test <0.03 0-0.06 code = 3287602826) LYMPH x10^3 (test code 0.69 10*3/uL 1.32-3.29 L = 731-0) MONO x10^3 (test code 0.30 10*3/uL 0.33-0.92 L = 742-7) EOS x10^3 (test code = 0.08 10*3/uL 0.03-0.39 711-2) BASO x10^3 (test code <0.03 0.01-0.07 = 704-7) Lab Interpretation Abnormal (test code = 23341-0) [facility]. METABOLIC PANEL (95651)2019-08-11 10:42:00 Test Item Value Reference Range Interpretation Comments NA (test code = 138 mmol/L 135-145 2226378147) K (test code = 3.8 mmol/L 3.5-5 9302690398) CL (test code = 108 mmol/L 98-108 7064004534) CO2 TOTAL (test code = 24 mmol/L 23-31 1367646686) AGAP (test code = 2-16 9329128070) BUN (test code = 10 mg/dL 7-23 9308173308) GLUCOSE (test code = 108 mg/dL 70-110 6516288248) CREATININE (test code = 0.43 mg/dL 0.5-1.04 L 1768784015) TOTAL BILI (test code = 2.5 mg/dL 0.1-1.1 H 6295236778) CALCIUM (test code = 8.4 mg/dL 8.6-10.6 L 8420801304) T PROTEIN (test code = 6.1 g/dL 6.3-8.2 L 3357598507) ALBUMIN (test code = 3.1 g/dL 3.5-5 L 6968875792) ALK PHOS (test code = 102 U/L 34-122 0784207740) ALTv (test code = 52 U/L 5-35 H 1742-6) AST(SGOT) (test code = 63 U/L 13-40 H 3451176735) eGFR Calculation mL/min/1.73m2 (Non-) (test code = 3745614666) eGFR Calculation mL/min/1.73m2 () (test code = 2140962054) SNOW (test code = SNOW) Association of [...] tests). Lab Interpretation Abnormal (test code = 45725-5) [facility]aXR SMALL BOWEL [id number] 02:08:11 1. ?No bowel obstruction. No fluoroscopic images or fluoroscopic time. RL 6200 HISTORY: ?Abdominal pain COMPARISON: ?None FINDINGS: There is a nonobstructive bowel gas pattern. Contrast is seen throughoutthe entire small bowel and colon. Nodilated loops of bowel demonstrated. [facility], Radiant Results Inft User - 08/10/2019 9:09 PM CDTHISTORY: Abdominal painCOMPARISON: NoneFINDINGS:There is a nonobstructive bowel gas pattern. Contrast is seen throughoutthe entire small bowel and colon. No dilated loops of bowel demonstrated.IMPRESSION1.No bowel obstruction.No fluoroscopic images or fluoroscopic time.RL 6200 [facility]anoSEDIMENTATION [id number] 16:19:00 Test Item Value Reference Range Interpretation Comments ESR (test code = See_Comment [Automated message] [id number]) The system Readmill generated this result transmitted ref erence range: 0 - 20 m m/HR. The reference r davi was not used to interpret this result as normal/abnor mal. Lab Interpretation (test Normal code = 83005-4) [facility] - To confirm nasogastric tube [...] system. No acute bony abnormalities are noted. Nymb, Radiant Results Inft User - 08/10/2019 10:25 [...] reviewed this study and agree with the abovereport.[facility] WITH [id number] 13:48:00 Test Item Value Reference Range Interpretation [...] (test code = 58.4 fL 39-49.9 H 17069-6) RDW-CV (test code = 16.7 % 12-15.5 H 788-0) PLT (test code = See_Comment LL [Automated 777-3) message] The system which generated this result transmit josemanuel reference range : 166 - 358 10*3/ ?L. The reference range was not u sed to interpret th is result as normal/abnormal . MPV (test code = 10.5 fL 9.5-12.9 85769-8) IPF % (test code = 3.0 % 1.3-7.7 Platelet count [id number]) measured by fluorescence method. NRBC/100 WBC (test See_Comment [Automat ed code = 7932618719) message] The system which generated this result transmit josemanuel reference range : 0.0 - 10.0 /100 WBCs. The reference range was not used to interpret this result as normal/abnormal . NRBC x10^3 (test code <0.01 See_Comment [Auto mated = 4731032934) message] The system which generated this result transmit josemanuel reference range : 10*3/?L. The reference range was not used to interpret this result as normal/abnormal . GRAN MAT (NEUT) % 57.1 % (test code = 770-8) IMM GRAN % (test code 0.40 % = 0788460792) LYMPH % (test code = 28.1 % 736-9) MONO % (test code = 10.4 % 5905-5) EOS % (test code = 3.6 % 713-8) BASO % (test code = 0.4 % 706-2) GRAN MAT x10^3(ANC) 1.42 10*3/uL 1.88-7.09 L (test code = 2940082724) IMM GRAN x10^3 (test <0.03 0-0.06 code = 7780597351) LYMPH x10^3 (test 0.70 10*3/uL 1.32-3.29 L code = 731-0) MONO x10^3 (test code 0.26 10*3/uL 0.33-0.92 L = 742-7) EOS x10^3 (test code 0.09 10*3/uL 0.03-0.39 = 711-2) BASO x10^3 (test code <0.03 0.01-0.07 = 704-7) PLT ESTIMATE (test Critically Normal AA code = 9317-9) Decreased Lab Interpretation Abnormal (test code = 83590-7) [facility]GLOB[facility] (A1C)2019-08-10 13:13:00 Test Item Value Reference [...] Indicated Lab Interpretation Normal (test code = 77767-4) [facility]YROID STIMULATING [id number] 13:05:00 Test Item Value Reference Range Interpretation Comments TSH (test code = See_Comment [Automated message] 0831709947) The system Readmill generated this result transmitted ref erence range: 0.45 - 4 .70 mIU/L. The refe rence range was not u sed to interpret this result as normal/abnor mal. Lab Interpretation (test Normal code = 89502-2) [facility]REG[facility]NC[facility] TEST, [id number] 13:04:00 Test Item Value Reference Range Interpretation Comments PREG SERUM (test code Negative = 9792734759) SNOW (test code = SNOW) Less than 10 IU/L. ?If low titer or ectopic is suspected, resubmit specimen in 48-72 hours. [facility]aLIPID PANEL (84775)(TOTAL CHOLESTEROL, TRIGLYCERIDES, HDL)2019-08-10 12:36:00 Test Item Value Reference Range Interpretation Comments CHOL (test code = 158 mg/dL 120-200 8978376243) HDL (test code = 47 mg/dL >50 L 3657651354) HDLC RATIO (test code = See_Comment [Au tomated message] 8372132758) The system Readmill generated this result transmit josemanuel reference range : <=4.5. The refe rence range was not u sed to interpret th is result as normal/abnormal . TRIG (test code = 51 mg/dL 30-170 1958816034) LDL CHOL (test code = 101 mg/dL See_Comment [Auto mated message] 62405-0) The system Readmill generated this result transmit josemanuel reference range : <=160. The refe rence range was not u sed to interpret th is result as normal/abnormal . VLDL (test code = 10 mg/dL 5-60 4406995108) Lab Interpretation (test Abnormal code = 79790-4) [facility]aCOMP. METABOLIC PANEL (82608)2019-08-10 12:35:00 Test Item Value Reference Range Interpretation Comments NA (test code = 139 mmol/L 135-145 2934956185) K (test code = 3.9 mmol/L 3.5-5 0409076469) CL (test code = 109 mmol/L 98-108 H 6253995220) CO2 TOTAL (test code = 25 mmol/L 23-31 3065346602) AGAP (test code = 2-16 1835007728) BUN (test code = 15 mg/dL 7-23 2241826700) GLUCOSE (test code = 218 mg/dL 70-110 H 5286002595) CREATININE (test code = 0.40 mg/dL 0.5-1.04 L 3889465126) TOTAL BILI (test code = 2.0 mg/dL 0.1-1.1 H 0392697359) CALCIUM (test code = 8.5 mg/dL 8.6-10.6 L 5117005835) T PROTEIN (test code = 6.2 g/dL 6.3-8.2 L 5471506444) ALBUMIN (test code = 3.1 g/dL 3.5-5 L 5290441634) ALK PHOS (test code = 99 U/L 34-122 8019916531) ALTv (test code = 42 U/L 5-35 H 1742-6) AST(SGOT) (test code = 49 U/L 13-40 H 2783042869) eGFR Calculation mL/min/1.73m2 (Non-) (test code = 8085120154) eGFR Calculation mL/min/1.73m2 () (test code = 0033399075) SNOW (test code = SNOW) Association of [...] tests). Lab Interpretation Abnormal (test code = 40331-7) [facility]2020-05-01 12:35:00 Test Item Value Reference Range Interpretation Comments MAGNESIUM (test code = 5609449509) 1.6 mg/dL 1.7-2.4 L Lab Interpretation (test code = Abnormal 59931-0) [facility]OSPHORUS2020-05-01 12:35:00 Test Item Value Reference Range Interpretation Comments PHOSPHORUS (test code = 6337155322) 3.6 mg/dL 2.5-5 Lab Interpretation (test code = Normal 87623-1) [facility]aCREATINE [id number] 12:35:00 Test Item Value Reference Range Interpretation Comments CK (test code = 0906718109) 123 U/L 33-194 Lab Interpretation (test code = Normal 71239-4) [facility]IPASE2020-05-01 12:35:00 Test Item Value Reference Range Interpretation Comments LIPASE (test code = 4854224270) 141 U/L 0-220 Lab Interpretation (test code = Normal 16020-2) [facility]YLASE2020-05-01 12:34:00 Test Item Value Reference Range Interpretation Comments LIN (test code = 3098446970) 73 U/L 35-110 Lab Interpretation (test code = Normal 83005-6) [facility]aPROTHROMBIN TIME / [id number] 12:07:00 Test Item Value Reference Range Interpretation Comments PROTIME PATIENT (test See_Comment H [Auto mated message] code = 5964-2) The system [employer] generated this result transmitted ref erence range: 12.0 - 1 4.7 Seconds. The reference range was not used to int erpret this result as normal/abnormal . INR (test code = 6301-6) Nor mal INR <1.1; Warfarin Therap eutic range 2.0 to 3. 0 or 2.5 to 3.5, dep ending upon the indica tions. Lab Interpretation (test Abnormal code = 96413-5) [facility]aCORONAVIRUS COVID-19 [id number] 10:18:00 Test Item Value Reference Range Interpretation Comments SARS-CoV-2 (test code = Not Detected Not Detected 65989-6) SNOW (test code = SNOW) ID NOW COVID-19 Assay is an isothermal nucleic acid amplification test intended for the qualitative detection of nucleic acid from SARS-CoV-2 viral RNA in nasopharyngeal (BLASTING MINER) specimens. It is used under Emergency Use [...] indicated. Lab Interpretation Normal (test code = 17520-9) [facility]aRAD, CHEST, 1 VIEW, NON [id number] 07:50:00Reason for exam:->SOBShould this be performed at the bedside?->Yes FINAL REPORT CLINICAL HISTORY: SOB TECHNIQUE: 1 view of the chest. COMPARISON: None IMPRESSION: There is pulmonary vascular congestion with prominent lung markings bilaterally. Subpulmonic pleural effusions cannot be excluded. The cardiomediastinal silhouette is magnified by technique. Signed: Franky Louis MDReport Verified Date/Time: 10/03/2018 07:50:47 Reading Location: [facility] Radiology Reading Room [id number] 07:37:00 Test Item Value Reference Range Interpretation Comments MAGNESIUM (BEAKER) (test code = 1.6 mg/dL 1.6-2.6 627) BASIC METABOLIC [id number] 07:37:00 Test Item Value Reference Range Interpretation [...] DIALYSIS PATIEN TS. Specimen slightly ictericHEPATIC FUNCTION [id number] 07:37:00 Test Item Value Reference Range Interpretation [...] 35 U/L 6-55 347) Specimen slightly ictericPROTHROMBIN TIME/[id number] 06:25:00 Test Item Value Reference Range Interpretation [...] mechanical heart valves.CBC W/PLT COUNT & AUTO [id number] 06:16:00 Test Item Value Reference Range Interpretation [...] = 3438) Received comment: User comments: Slide comments:[id number] 05:58:00 Test Item Value Reference Range Interpretation Comments MAGNESIUM (BEAKER) (test code = 1.6 mg/dL 1.6-2.6 627) BASIC METABOLIC [id number] 05:58:00 Test Item Value Reference Range Interpretation [...] DIALYSIS PATIEN TS. Specimen slightly ictericHEPATIC FUNCTION [id number] 05:58:00 Test Item Value Reference Range Interpretation [...] 39 U/L 6-55 347) Specimen slightly ictericPROTHROMBIN [id number] 05:26:00 Test Item Value Reference Range Interpretation [...] mechanical heart valves.CBC W/PLT COUNT & AUTO [id number] 05:20:00 Test Item Value Reference Range Interpretation [...] WBC 0-0 (test code = 413) VITAMIN [id number] 06:57:00 Test Item Value Reference Range Interpretation Comments VITAMIN B12 (BEAKER) (test code = 178 pg/mL 213-816 L 774) [id number] 06:57:00 Test Item Value Reference Range Interpretation Comments FERRITIN (BEAKER) (test code = 361) 21 ng/mL 5-275 FOLATE, [id number] 06:57:00 Test Item Value Reference Range Interpretation [...] 28 % 20-55 (test code = 2590) [id number] 05:59:00 Test Item Value Reference Range Interpretation Comments MAGNESIUM (BEAKER) (test code = 1.7 mg/dL 1.6-2.6 627) BASIC METABOLIC [id number] 05:59:00 Test Item Value Reference Range Interpretation [...] FOR DIALYSIS PATIEN TS. Specimen slightly ictericLIPID [id number] 05:59:00 Test Item Value Reference Range Interpretation [...] Very High >=190 Specimen slightly ictericHEPATIC FUNCTION [id number] 05:59:00 Test Item Value Reference Range Interpretation [...] = 41 U/L 6-55 347) Specimen slightly [id number] 05:59:00 Test Item Value Reference Range Interpretation Comments LIPASE (BEAKER) (test code = 749) 35 U/L 8-78 Specimen slightly ictericPROTHROMBIN TIME/[id number] 05:58:00 Test Item Value Reference Range Interpretation [...] mechanical heart valves.CBC W/PLT COUNT & AUTO [id number] 05:37:00 Test Item Value Reference Range Interpretation [...] (test code = 416) BASOPHILS ABSOLUTE COUNT ([facility]) 0.02 K/ L 0.01-0.08 (test code = 417) IMMATURE GRANULOCYTES-RELATIVE 0 % 0-1 PERCENT ([facility]) (test code = 2801) POCT-HEMOGLOBIN [id number] 06:12:00 Test Item Value Reference Range Interpretation Comments POC-HEMOGLOBIN METER 8.6 g/dL 12.0-15.[address] [facility] [address] ([facility]) (test code = [place] [address] 1539)"
[2021-05-21] MEDS ORDERED: PROMETHAZINE INJ 25 MG/ML AMP ONE (00:33)
[2021-05-21] MEDS ORDERED: FENTANYL 25 MCG/PATCH TD ONE ×2 (00:33→00:59)
--- NOTE | 2021-05-21 01:43 | ER ---
Nurse's Notes [facility] Name: Zenaida Goss Age: 61 yrs Sex: Female : 1960 Arrival Date: 05/20/2021 Time: 23:58 Bed 13 Private MD: Diagnosis: Chronic Abdominal Pain Presentation: 05/21 00:08 Chief complaint: Patient states: abd pain radiates to her back x4 days, nausea and sm5 vomiting. hx of pancreatitis. Coronavirus screen: Vaccine status: Patient reports receiving the 2nd dose of the covid vaccine. Ebola Screen: No symptoms or risks identified at this time. Initial Sepsis Screen: Does the patient meet any 2 criteria? No. Patient's initial sepsis screen is negative. Does the patient have a suspected source of infection? No. Patient's initial sepsis screen is negative. Risk Assessment: Do you want to hurt yourself or someone else? Patient reports no desire to harm self or others. Onset of symptoms was May 17, 2021. 00:08 Method Of Arrival: Ambulatory 5 00:08 Acuity: TANK 3 sm5 Triage Assessment: 00:13 General: Appears in no apparent distress. Behavior is cooperative. Pain: Complains of sm5 pain in back and abdomen. Neuro: Level of Consciousness is awake, alert, obeys commands, Oriented to person, place, time, situation. Cardiovascular: No deficits noted. Capillary refill < 3 seconds Patient's skin is warm and dry. Respiratory: No deficits noted. Airway is patent Trachea midline Respiratory effort is even, unlabored. GI: Abdomen is obese, Reports upper abdominal pain, nausea, vomiting. Historical: - Allergies: 00:11 Dilaudid; sm5 00:11 Morphine (Anaphylaxis); sm5 - Home Meds: 00:11 Creon Oral [Active]; Lactulose Oral once daily [Active]; sm5 - PMHx: 00:11 Anemia; breast cancer; Cirrhosis; fatty liver; Pancreatitis; varices; sm5 - PSHx: 00:11 Appendectomy; Cholecystectomy; Lumpectomy of breast; Total abdominal hysterectomy; sm5 - Immunization history:: Client reports receiving the 2nd dose of the Covid vaccine. - Social history:: Smoking status: unknown. Screenin:21 Abuse screen: Denies threats or abuse. Denies injuries from another. Nutritional mahin screening: No deficits noted. Tuberculosis screening: No symptoms or risk factors identified. Fall Risk None identified. Assessment: 00:08 General: I recv'd the pt to room #13 at this time. She c/o abd pain and nausea, x 4 mahin days. She has a hx of pancreatitis and reports,"...it feels like that". The pt appears in NAD and she is calm and cooperative. She was asked to provide a urine specimen. MD is at bedside. . 00:21 General: We have attempted x 2 for IV access, but given that we can only use her left mahin arm and the difficulty in this endeavor, I asked the charge nurse if she could assist. Provider is aware. The pt has ambulated to the restroom, to provide a urine specimen. . 00:26 GI: Bowel sounds present X 4 quads. Hepatomegaly noted grossly obese. mahin 01:05 General: I went to the 2nd floor, as well as, the 3rd floor, for the fentanyl patch. It mahin was placed and the pt is "letting it work". . 01:23 Reassessment: Patient states feeling better. The pt reports that the pain has mahin decreased, but "it's still there". I told her that it may take a few more minutes. She is resting. . 02:00 General: The pt reports that the pain has decreased and she "feels better".. mahin Vital Signs: 00:08 BP 136 / 74; Pulse 94; Resp 21; Temp 98.1(O); Pulse Ox 100% on R/A; Weight 117.93 kg; sm5 Height 5 ft. 4 in. (162.56 cm); Pain 9/10; 01:05 BP 133 / 65; Pulse 89; Resp 16; Pulse Ox 98% on R/A; Pain 7/10; mahin 01:59 BP 131 / 62; Pulse 82; Resp 16; Temp 98.5; Pulse Ox 100% on R/A; Pain 2/10; mahin 00:08 Body Mass Index 44.63 (117.93 kg, 162.56 cm) 5 ED Course: 05/20 23:58 Patient arrived in ED. ja2 05/21 00:01 Neal Lynn PA is PHCP. quintin 00:01 Marcio Stone MD is Attending Physician. quintin 00:08 Jolene Burciaga, RN is Primary Nurse. mahin 00:09 Triage completed. sm5 00:13 Arm band placed on right wrist. sm5 00:21 Patient has correct armband on for positive identification. Bed in low position. Call mahin light in reach. Side rails up X 1. 00:25 No provider procedures requiring assistance completed. mahin 01:23 Lights dimmed. Warm blanket given. mahin 02:01 Patient did not have IV access during this emergency room visit. mahin Administered Medications: 00:30 CANCELLED (Duplicate Order): fentaNYL (PF) 50 mcg IVP once; RASS on ADMIN: Combtv4, jmm Very Agttd3, Agttd2, Rstlss1, AlertClm0, Drwsy-1, Lt Sdtn-2, Mod Sdtn-3, Dp Sdtn-4, UnArsble-5 00:45 Drug: Promethazine 25 mg Route: IM; Site: left gluteus; mahin 01:23 Follow up: Response: Nausea is decreased mahin 00:47 CANCELLED (Duplicate Order): NS 0.9% 1000 ml IV at 1 bolus Per protocol; 1000 mL bolus [facility] 01:01 Drug: fentaNYL Patch (50 mcg/hr) 1 patches Route: Transdermal; Site: abdomen; mahin 01:23 Follow up: Response: Pain is decreased mahin Outcome: 00:26 Condition: stable mahin 01:42 Discharge ordered by . [facility] 02:01 Discharged to home ambulatory. mahin 02:01 Discharge instructions given to patient, Instructed on discharge instructions, medication usage, Demonstrated understanding of instructions, medications, Prescriptions given X 1. 02:02 Patient left the ED. mahin Signatures: Neal Lynn PA PA jmm Alexander, Jessica ja2 Mazur, Sarah, RN RN 5 Jolene Burciaga, ERIC RN mahin
--- NOTE | 2021-05-21 01:43 | EDPHYS ---
Physician Documentation [facility] Name: Zenaida Goss Age: 61 yrs Sex: Female : 1960 Arrival Date: 05/20/2021 Time: 23:58 Bed 13 Private MD: ED Physician Marcio Stone HPI: 05/21 01:38 This 61 yrs old Female presents to ER via Ambulatory with complaints of jmm Abdominal Pain, Nausea. 01:38 The patient presents with abdominal pain. Onset: The symptoms/episode began/occurred jmm gradually, 4 day(s) ago. The symptoms radiate to back. Associated signs and symptoms: Pertinent positives: nausea and vomiting. The symptoms are described as achy, sharp. Modifying factors: The symptoms are alleviated by nothing, the symptoms are aggravated by nothing. The patient has experienced similar episodes in the past, chronically. Patient states this is a similar to previous episodes of pancreatitis. Historical: - Allergies: 00:11 Dilaudid; sm5 00:11 Morphine (Anaphylaxis); sm5 - Home Meds: 00:11 Creon Oral [Active]; Lactulose Oral once daily [Active]; sm5 - PMHx: 00:11 Anemia; breast cancer; Cirrhosis; fatty liver; Pancreatitis; varices; sm5 - PSHx: 00:11 Appendectomy; Cholecystectomy; Lumpectomy of breast; Total abdominal hysterectomy; sm5 - Immunization history:: Client reports receiving the 2nd dose of the Covid vaccine. - Social history:: Smoking status: unknown. ROS: 01:38 Constitutional: Negative for fever, chills, and weight loss, Cardiovascular: Negative jmm for chest pain, palpitations, and edema, Respiratory: Negative for shortness of breath, cough, wheezing, and pleuritic chest pain. 01:38 Abdomen/GI: Positive for abdominal pain, nausea and vomiting. 01:38 All other systems are negative. Exam: 01:38 Constitutional: This is a well developed, well nourished patient who is awake, alert, jmm and in no acute distress. Head/Face: atraumatic. Eyes: EOMI, no conjunctival erythema appreciated ENT: Moist Mucus Membranes Neck: Trachea midline, Supple Chest/axilla: Normal chest wall appearance and motion. Cardiovascular: Regular rate and rhythm. No edema appreciated Respiratory: Normal respirations, no respiratory distress appreciated Abdomen/GI: Non distended, soft Back: Normal ROM Skin: General appearance color normal MS/ Extremity: Moves all extremities, no obvious deformities appreciated, no edema noted to the lower extremities Neuro: Awake and alert Psych: Behavior is normal, Mood is normal, Patient is cooperative and pleasant Vital Signs: 00:08 BP 136 / 74; Pulse 94; Resp 21; Temp 98.1(O); Pulse Ox 100% on R/A; Weight 117.93 kg; 5 Height 5 ft. 4 in. (162.56 cm); Pain 9/10; 01:05 BP 133 / 65; Pulse 89; Resp 16; Pulse Ox 98% on R/A; Pain 7/10; mahin 01:59 BP 131 / 62; Pulse 82; Resp 16; Temp 98.5; Pulse Ox 100% on R/A; Pain 2/10; mahin 00:08 Body Mass Index 44.63 (117.93 kg, 162.56 cm) 5 MDM: 00:01 Patient medically screened. quintin 01:40 Data reviewed: vital signs, nurses notes. Counseling: I had a detailed discussion with quintin the patient and/or guardian regarding: the historical points, exam findings, and any diagnostic results supporting the discharge/admit diagnosis, the need for outpatient follow up, to return to the emergency department if symptoms worsen or persist or if there are any questions or concerns that arise at home. ED course: Patient is alert and non toxic in appearance in the ED. VS WNL. Will treat patient for pain. Advised to return to the ER if symptoms worsen. Patient understood and agrees with the plan of care. . 05/21 00:02 Order name: Labs collected and sent quintin Administered Medications: 00:30 CANCELLED (Duplicate Order): fentaNYL (PF) 50 mcg IVP once; RASS on ADMIN: Combtv4, quintin Very Agttd3, Agttd2, Rstlss1, AlertClm0, Drwsy-1, Lt Sdtn-2, Mod Sdtn-3, Dp Sdtn-4, UnArsble-5 00:45 Drug: Promethazine 25 mg Route: IM; Site: left gluteus; mahin 01:23 Follow up: Response: Nausea is decreased mahin 00:47 CANCELLED (Duplicate Order): NS 0.9% 1000 ml IV at 1 bolus Per protocol; 1000 mL bolus [facility] 01:01 Drug: fentaNYL Patch (50 mcg/hr) 1 patches Route: Transdermal; Site: abdomen; mahin 01:23 Follow up: Response: Pain is decreased mahin Disposition: 02:24 Co-signature as Attending Physician, Marcio Stone MD I agree with the assessment and rn plan of care. Attestation: The patient's history, exam findings, diagnostics, and a summary of any interventions or procedures was reviewed in detail with Neal GARCIA. Disposition Summary: 05/21/21 01:42 Discharge Ordered Location: Home [facility] Condition: Stable [facility] Diagnosis - Chronic Abdominal Pain [facility] Followup: [facility] - With: Private Physician - When: Tomorrow - Reason: Recheck today's complaints, Continuance of care, Re-evaluation by your physician Discharge Instructions: - Discharge Summary Sheet [facility] - Chronic Pancreatitis [facility] Forms: - Medication Reconciliation Form [facility] - Thank You Letter [facility] - Antibiotic Education [facility] - Prescription Opioid Use [facility] Prescriptions: - ondansetron 4 mg Oral tablet,disintegrating - take 1 tablet by ORAL route every 4-6 hours; 20 tablet; Refills: 0, Product [facility] Selection Permitted Signatures: Dispatcher [employer] Neal Mena PA PA [facility] Marcio Stone MD MD rn Mazur, Sarah RN RN 5 Jolene Burciaga RN RN bo Corrections: (The following items were deleted from the chart) 00:29 00:02 IV Saline Lock ordered. [facility] 00:30 00:06 fentaNYL (PF) 50 mcg IVP once; RASS on ADMIN: Combtv4, Very Agttd3, Agttd2, [facility] Rstlss1, AlertClm0, Drwsy-1, Lt Sdtn-2, Mod Sdtn-3, Dp Sdtn-4, UnArsble-5 ordered. [facility] 00:47 00:02 NS 0.9% 1000 ml IV at 1 bolus Per protocol; 1000 mL bolus ordered. [facility] 00:48 00:02 BASIC METABOLIC PANEL+C.LAB.BRZ ordered. EDMA EDMA 00:48 00:02 CBC+H.LAB.BRZ ordered. [facility] EDMA 00:48 00:02 HEPATIC FUNCTION+C.LAB.BRZ ordered. EDMS EDMS 00:48 00:02 LIPASE+C.LAB.BRZ ordered. EDMS EDMS
[2021-05-21 02:11] VITALS: BP 131/62; TEMP 98.5; O2SAT 100
== END 2021-05-21 02:02 | disposition home or self-care (01) ==
LOC: ER 23:54
DX: R10.9 Unspecified abdominal pain (principal); R11.2 Nausea with vomiting, unspecified
CPT/HCPCS: 96372; 99283; J2550

== ENCOUNTER 2021-06-22 06:09 | Emergency (ER) | payer OTHER ==
--- OUTSIDE RECORDS SUMMARY | 2021-06-22 06:17 | XMS REPORT | Continuity of Care Document ---
:1960 Author Organization [facility] t Address [address] [place] [address] Dr. [address]. [address] [place] [address] Care Team Providers Name Role Phone Sami HERNANDEZ Primary Care Physician Unavailable Ruth Attending Clinician Unavailable Harley Attending Clinician Unavailable [facility] Attending Clinician Unavailable José Manuel GREEN Attending Clinician Unavailable Beatriz ELECTRIC CAR OPERATOR, F Attending Clinician Nancy REYES Attending Clinician [...] Number Effective Date Expiration Date Deshawn blancas [facility] [id number] 2019 CHOICE 00:00:00 Problems Condition Condition Condition [...] t Reaction Available [facility] Social History Social Habit Start Date Stop Date Quantity Comments Source Exposure to Not sure [facility] SARS-CoV-2 [facility] (event) Branch Alcohol intake 2021-04-02 2021-04-02 Ex-drinker [facility] 00:00:00 00:00:00 (finding) [facility] Tobacco use and 2016-08-07 2016-08-07 Never used Universit y of exposure 00:00:00 00:00:00 [facility] Sex Ass[birth year] At [birth year] Universit y of 00:00:00 00:00:00 [facility] Smoking Status Start Date Stop Date Source Never smoker [facility] Medications Ordered Filled Start Stop Current [...] 04/02/21 at 1445, VERN ondansetron 2020-04 Yes [id number] 4mg Take 1 Univers 4 mg 2-23 tablet by ity of disintegrat 00:00: mouth [place] ing tablet 00 every 8 Medica l (eight) Branch hours as needed for Nausea and Vomiting (N/V). ondansetron 2020-04 Yes [id number] 4mg Take 1 Univers 4 mg 2-23 tablet by ity of disintegrat 00:00: mouth [place] ing tablet 00 every 8 Medica l (eight) Branch hours as needed for Nausea and Vomiting (N/V). cholecalcif 2020- No [id number] 1999U Take 2 Univers nuno, 6-26 07-27 tablets by ity of vitamin D3, 00:00: 04:59 [place] 25 [place] 00 :00 daily for Medical (1,000 30 days. Branch unit) tablet cyanocobala 2020- No [id number] 1000ug inject 1 Univers min 1,000 6-26 07-27 mL under ity o f mcg/mL 00:00: 04:59 the skin [place] injection 00 :00 every 24 Medica l (twenty-fo Branch ur) hours for 30 days. KCL 20 mEq 2020- No [id number] 20meq Take 1 Univers tablet 6-26 07-27 tablet by ity of 00:00: 04:59 mouth [place] 00 :00 daily for Medical 30 days. Branch cholecalcif 2020- No [id number] 1999U Take 2 Univers nuno, 6-26 07-27 tablets by ity of vitamin D3, 00:00: 04:59 [place] 25 mcg 00 :00 daily for Medical (1,000 30 days. Branch unit) tablet cyanocobala 2020- No [id number] 1000ug inject 1 Univers min 1,000 6-26 07-27 mL under ity o f mcg/mL 00:00: 04:59 the skin [place] injection 00 :00 every 24 Medica l (twenty-fo Branch ur) hours for 30 days. KCL 20 mEq 2020- No [id number] 20meq Take 1 Univers tablet 6 07-27 [...] ity o f mL oral 18:10: daily. [place] solution 25 Medical Branch pantoprazol Yes 40mg Take 40 mg Univers e 6-25 by mouth ity of (PROTONIX) 18:10: daily. [place] 40 mg EC 25 Medical tablet Branch [...] unresponsi ve to Ondansetro n proMETHazin Yes [id number] 12.5mg Take 1 Univers e 12.5 mg 6-25 tablet by ity o f tablet 00:00: mouth [place] 00 every 6 Medical (six) Branch hours as needed for Nausea and Vomiting (N/V) or N/V unresponsi ve to Ondansetro n. proMETHazin Yes [id number] 12.5mg Take 1 Univers e 12.5 mg 6-25 tablet by ity o f tablet 00:00: mouth [place] 00 every 6 Medical (six) Branch hours as needed for Nausea and Vomiting (N/V) or N/V unresponsi ve to Ondansetro n. proMETHazin Yes [id number] 12.5mg Take 1 Univers e 12.5 mg 6-25 tablet by ity o f tablet 00:00: mouth [place] 00 every 6 Medical (six) Branch hours as needed for Nausea and Vomiting (N/V) or N/V unresponsi ve to Ondansetro n. proMETHazin Yes [id number] 12.5mg Take 1 Univers e 12.5 mg 6-25 tablet by ity o f tablet 00:00: mouth [place] 00 every 6 Medical (six) Branch hours as needed for Nausea and Vomiting (N/V) or N/V unresponsi ve to Ondansetro n. proMETHazin Yes [id number] 12.5mg Take 1 Univers e 12.5 mg 6-25 tablet by ity o f tablet 00:00: mouth [place] 00 every 6 Medical (six) Branch hours as needed for Nausea and Vomiting (N/V) or N/V unresponsi ve to Ondansetro n. proMETHazin Yes [id number] 12.5mg Take 1 Univers e 12.5 mg 6-25 tablet by ity o f tablet 00:00: mouth [place] 00 every 6 Medical (six) Branch hours as needed for Nausea and Vomiting (N/V) or N/V unresponsi ve to Ondansetro n. proMETHazin Yes [id number] 12.5mg Take 1 Univers e 12.5 mg 6-25 tablet by ity o f tablet 00:00: mouth [place] 00 every 6 Medical (six) Branch hours as needed for Nausea and Vomiting (N/V) or N/V unresponsi ve to Ondansetro n. furosemide 2020- No [id number] 40mg Take 1 Univers 40 mg 6-25 07-26 tablet by ity of tablet 00:00: 04:59 mouth [place] 00 :00 every Medical morning Branch and evening for 30 days. lipase-prot 2020- No [id number] 2{capsu Take 2 Univers ease-amylas 6-25 07-26 le} capsules ity of e 00:00: 04:59 by mouth 3 [place] 12,000-38,0 00 :00 (three) Medic al 00 -60,000 times Branch unit daily with capsule meals for 30 days. lactobacill 2020- No [id number] .5mg Take 1 Univers us 6-25 07-26 tablet by ity of acidophilus 00:00: 04:59 mouth 2 [place] 00 :00 (two) Medical times Branch daily for 30 days. furosemide 2020- No [id number] 40mg Take 1 Univers 40 mg 6-25 07-26 tablet by ity of tablet 00:00: 04:59 mouth [place] 00 :00 every Medical morning Branch and evening for 30 days. lipase-prot 2020- No [id number] 2{capsu Take 2 Univers ease-amylas 6-25 07-26 le} capsules ity of e 00:00: 04:59 by mouth 3 [place] 12,000-38,0 00 :00 (three) Medic al 00 -60,000 times Branch unit daily with capsule meals for 30 days. lactobacill 2020- No [id number] .5mg Take 1 Univers us 6-25 07-26 tablet by ity of acidophilus 00:00: 04:59 mouth 2 [place] 00 :00 (two) Medical times Branch daily for 30 days. vancomycin 2020- No [id number] 125mg Take 1 Univers 125 mg 6-25 07-06 capsule by ity of capsule 00:00: 04:59 mouth 4 [place] 00 :00 (four) Medical times Branch daily for 10 days. vancomycin 2020- No [id number] 125mg Take 1 Univers 125 mg 6-25 [...] Indication s: acute pain cephALEXin 2020- No [id number] 500mg Take 1 Univers 500 mg 10-03 capsule by ity of capsule 00:00: 04:59 mouth 4 [place] 00 :00 (four) Medical times Branch daily for 5 days. cephALEXin 2020- No [id number] 500mg Take 1 [place] 500 mg 10-03 [...] QHSPRN, [place] mg 57 Starting Medical [facility] Branch 09/29/20 at 2251, Until Discontinu [...] 09-29 Units, ity of (vitamin 20:00: Oral, [place] D3) tablet 00 DAILY, Medical 2,000 Units First dose Br anch on [facility] 09/29/20 at 1500, Until Discontinu ed, Routine lactobacill Yes .5mg 0.5 mg, Uni vers us 09-29 Oral, BID, ity of acidophilus 14:15: First dose [place] tablet 0.5 00 on [facility] Medical mg 09/29/20 at Branch 0915, Until Discontinu ed, Routine KCL Yes 20meq 20 mEq, Univers (KLOR-CON 09-29 Oral, ity of M20) tablet 14:00: DAILY, [place] 20 mEq 00 First dose Medical (after Branch last reorder) on [facility] 09/29/20 at 0900, Until Discontinu ed, Routine lipase-prot 0 Yes 2{capsu 2 capsule, Univers ease-amylas 09-29 le} Oral, TID ity of e (CREON) 08:45: MEALS, [place] 12,000-38,0 00 First dose Me dical 00 -60,000 on [facility] Branch unit 09/29/20 at capsule 2 [...] :00 s, ONCE, 1 Medic al dose, [facility] 09/29/20 at 0245, Routine FENTanyl PF 2020- No 50ug 50 mcg, Un marline (SUBLIMAZE 09-29 Slow IV ity o f (PF)) 07:30: 06:27 Push, [place] injection 00 :00 ONCE, 1 Medical 50 mcg dose, [facility] 09/29/20 at 0230, Routine piperacilli 2020- No 3.375g 3.375 g, Univers n-tazobacta 09-29 IV ity of m (ZOSYN) 07:30: 07:00 Piggyback, [place] 3.375 g in 00 :00 ONCE, 1 Medica l NaCl 0.9% dose, [facility] Branc h (NS) 100 mL 09/29/20 at [...] injection 4 17 Starting Medi molly mg [facility] Branch 09/29/20 at 0142, Until Discontinu ed, Routine, Nausea and Vomiting (N/V) iopamidol 2020- No [id number] 100mL 100 mL, Univers (ISOVUE 09-29 Intravenou [...] for Pain (scale 4-6). acetaminoph 2020-0 Yes [id number] 1{tbl} Take 1 Univers en-codeine 5-02 tablet by ity of 300-30 mg 00:00: mouth [place] tablet 00 every 4 Medical (four) Branch hours as needed for Pain (scale 4-6). acetaminoph 2020-0 Yes [id number] 1{tbl} Take 1 Univers en-codeine 5-02 tablet by ity of 300-30 mg 00:00: mouth [place] tablet 00 every 4 Medical (four) Branch hours as needed for Pain (scale 4-6). acetaminoph 2020-0 Yes [id number] 1{tbl} Take 1 Univers en-codeine 5-02 tablet by ity of 300-30 mg 00:00: mouth [place] tablet 00 every 4 Medical (four) Branch hours as needed for Pain (scale 4-6). lactulose 2019-0 2020- No [id number] 30mL Take 30 mL Univers 10 gram/15 5- 06-02 by mouth 2 it y of mL oral 00:00: 04:59 (two) [place] solution 00 :00 times Medical daily for Branch 30 days. pantoprazol 2019-0 2020- No [id number] 40mg Take 1 Univers e 40 mg EC 5- 06- tablet by ity of tablet 00:00: 04:59 mouth [place] 00 :00 daily for Medical 30 days. Branch lactulose 2019-0 2020- No [id number] 30mL Take 30 mL Univers 10 gram/15 5-02 06-02 by mouth 2 it y of mL oral 00:00: 04:59 (two) [place] solution 00 :00 times Medical daily for Branch 30 days. pantoprazol 2019-0 2020- No [id number] 40mg Take 1 Univers e 40 mg EC 5-02 06-02 tablet by ity of tablet 00:00: 04:59 mouth [place] 00 :00 daily for Medical 30 days. Branch propranolol 2019-0 2020- No [id number] 10mg Take 1 Univers 10 mg 5- [...] n Singh defined [facility] Amoxicillin Amoxicillin Yes Gm not [facility]Pot -Pot Singh defined [facility] Clavulanate Clavulanate [facility] Immunizations Ordered Filled Immunization Date Status Comments [facility] e Immunization Name Name Pneumococcal 2020-10-03 [...] Completed Unive rsity of MODERNA VACCINE 00:00:00 [facility] ical Branch SARS-COV-2 COVID-19 2020-08-08 Completed Unive rsity of MODERNA VACCINE 00:00:00 [place] [facility] ical Branch SARS-COV-2 COVID-19 2020-08-08 Completed Unive rsity of MODERNA VACCINE 00:00:00 [place] [facility] ical Branch SARS-COV-2 COVID-19 2020-08-08 Completed Unive rsity of MODERNA VACCINE 00:00:00 [place] [facility] ical Branch SARS-COV-2 COVID-19 2020-08-08 Completed Unive rsity of MODERNA VACCINE 00:00:00 [place] Med ical Branch SARS-COV-2 COVID-19 2020-08-08 Completed Unive rsity of MODERNA VACCINE 00:00:00 [facility] ical Branch SARS-COV-2 COVID-19 2020-08-08 Completed Unive rsity of MODERNA VACCINE 00:00:00 [facility] [place] [facility] SARS-COV-2 COVID-19 2020-08-08 Completed Unive rsity of MODERNA VACCINE 00:00:00 [facility] [place] [facility] SARS-COV-2 COVID-19 2020-07-11 Completed Unive rsity of MODERNA VACCINE 00:00:00 [facility] [place] [facility] SARS-COV-2 COVID-19 2020-07-11 Completed Unive rsity of MODERNA VACCINE 00:00:00 [facility] [place] [facility] SARS-COV-2 COVID-19 2020-07-11 Completed Unive rsity of MODERNA VACCINE 00:00:00 [facility] [place] [facility] SARS-COV-2 COVID-19 2020-07-11 Completed Unive rsity of MODERNA VACCINE 00:00:00 [facility] [place] [facility] SARS-COV-2 COVID-19 2020-07-11 Completed Unive rsity of MODERNA VACCINE 00:00:00 [facility] [place] [facility] SARS-COV-2 COVID-19 2020-07-11 Completed Unive rsity of MODERNA VACCINE 00:00:00 [facility] [place] [facility] SARS-COV-2 COVID-19 2020-07-11 Completed Unive rsity of MODERNA VACCINE 00:00:00 [facility] [place] [facility] SARS-COV-2 COVID-19 2020-07-11 Completed Unive rsity of MODERNA VACCINE 00:00:00 [facility] [place] [facility] Influenza Virus 2019-08-11 Completed Universit y of Vaccine Quad .5 mL 00:00:00 [facility] IM 6+ MO Branch Influenza Virus 2019-08-11 Completed Universit y of Vaccine [place] .5 mL 00:00:00 [place] Medical IM 6+ MO Branch Influenza Virus 2019-08-11 Completed Universit y of Vaccine [place] .5 mL 00:00:00 [place] Medical IM 6+ MO Branch Influenza Virus 2019-08-11 Completed Universit y of Vaccine [place] .5 mL 00:00:00 [place] Medical IM 6+ MO Branch Influenza Virus 2019-08-11 Completed Universit y of Vaccine [place] .5 mL 00:00:00 [place] Medical IM 6+ MO Branch Influenza Virus 2019-08-11 Completed Universit y of Vaccine [place] .5 mL 00:00:00 [place] Medical IM 6+ MO Branch Influenza Virus 2019-08-11 Completed Universit y of Vaccine [place] .5 mL 00:00:00 [place] Medical IM 6+ MO Branch Influenza Virus 2019-08-11 Completed Universit y of Vaccine [place] .5 mL 00:00:00 [place] Medical IM 6+ MO Branch Influenza Virus 2019-08-11 Completed Universit y of Vaccine [place] .5 mL 00:00:00 [place] Medical IM 6+ MO Branch Influenza Virus 2019-08-11 Completed Universit y of Vaccine [place] .5 mL 00:00:00 [place] Medical IM 6+ MO Branch Influenza Virus 2019-08-11 Completed Universit y of Vaccine [place] .5 mL 00:00:00 [facility] IM 6+ MO Branch Vital Signs Vital Name Observation Time Observation Value Comments Source Systolic blood 2021-04-02 18:55:00 138 mm[Hg] Univer sity of pressure [facility] Diastolic blood 2021-04-02 18:55:00 104 mm[Hg] Unive rsity of pressure [facility] Heart rate 2021-04-02 18:55:00 74 /min Universi ty [facility] Body temperature 2021-04-02 18:55:00 36.78 [facility] Respiratory rate 2021-04-02 18:55:00 18 /min [facility] Body weight 2021-04-02 18:55:00 122.471 kg [facility] BMI 2021-04-02 18:55:00 46.35 kg/m2 [facility] Oxygen saturation in 2021-04-02 18:55:00 97 /min [facility] Arterial blood by [facility] [place] [facility] Pulse oximetry Branch Systolic blood 2020-10-03 17:23:00 132 mm[Hg] Univer sity of pressure [facility] Diastolic blood 2020-10-03 17:23:00 56 mm[Hg] Unive rsity of pressure [facility] Heart rate 2020-10-03 17:23:00 88 /min Universi ty [facility] Body temperature 2020-10-03 17:23:00 36.94 [facility] Respiratory rate 2020-10-03 17:23:00 18 /min [facility] Oxygen saturation in 2020-10-03 17:23:00 94 /min University of Arterial blood by [facility] [place] [facility] Pulse oximetry Branch Body weight 2020-09-30 08:11:00 121.473 kg Universi ty of [place] [facility] BMI 2020-09-30 08:11:00 47.44 kg/m2 Universi ty of [place] [facility] Body height 2020-09-29 03:33:00 160 cm Universi ty of [place] [facility] Diastolic blood 2019-08-11 20:04:00 44 mm[Hg] Unive rsity of pressure [place] [facility] Heart rate 2019-08-11 20:04:00 70 /min Universi ty of [place] [facility] Body temperature 2019-08-11 20:04:00 36.61 [place] Univ ersity of [place] [facility] Respiratory rate 2019-08-11 20:04:00 18 /min Univ ersity of [place] [facility] Oxygen saturation in 2019-08-11 20:04:00 91 /min University of Arterial blood by [facility] [place] [facility] Pulse oximetry Branch Systolic blood 2019-08-11 20:04:00 107 mm[Hg] Univer sity of [facility] Body height 2019-08-10 08:01:00 162.6 cm Universi ty of [place] [facility] Body weight 2019-08-10 08:01:00 119.296 kg Universi ty of [place] [facility] BMI 2019-08-10 08:01:00 45.14 kg/m2 Universi ty of [place] [facility] Diastolic blood 2019-08-11 20:04:00 44 mm[Hg] Unive rsity of pressure [place] [facility] Heart rate 2019-08-11 20:04:00 70 /min Universi ty of [place] [facility] Body temperature 2019-08-11 20:04:00 36.61 [place] Univ ersity of [place] [facility] Respiratory rate 2019-08-11 20:04:00 18 /min Univ ersity of [place] [facility] Oxygen saturation in 2019-08-11 20:04:00 91 /min University of Arterial blood by [facility] [place] [facility] Pulse oximetry Branch Systolic blood 2019-08-11 20:04:00 107 mm[Hg] Univer sity of pressure [place] [facility] [place] Body height 2019-08-10 08:01:00 162.6 cm Universi ty of [place] [facility] Body weight 2019-08-10 08:01:00 119.296 kg Universi ty of [place] [facility] BMI 2019-08-10 08:01:00 45.14 kg/m2 [facility] Procedures Procedure Date / Time Performing Clinician Source Performed XR KNEE 3 VW LEFT 2021-04-02 20:10:39 [facility] CONSENT/REFUSAL FOR 2021-04-02 17:59:31 Doctor Unassigned, [facility] DIAGNOSIS AND TREATMENT [place] [facility] [place] ASSIGNMENT OF BENEFITS 2021-03-10 20:29:46 Doctor Unassigned, [facility] [place] [facility] PHOSPHORUS 2020-10-03 08:52:00 Brenda Teixeira [facility] MAGNESIUM 2020-10-03 08:52:00 Puneet [facility] COMP. METABOLIC PANEL 2020-10-03 08:52:00 Puneet [facility] ([id number]) [facility] CBC WITH DIFF 2020-10-03 08:52:00 Kim Teixeiraherine [facility] COMP. METABOLIC PANEL 2020-10-02 08:39:00 Kim Teixeiraherine [facility] ([id number]) [facility] CBC WITH DIFF 2020-10-02 08:39:00 Brenda Teixeira [facility] US DUPLEX VENOUS ARM LEFT 2020-10-01 16:22:58 Brenda Teixeira [facility] - BY VASCULAR LAB [facility] COMP. METABOLIC PANEL 2020-10-01 07:45:00 Tomasa Escamilla [facility] ([id number]) [facility] CBC WITH DIFF 2020-10-01 07:45:00 [place] TROPONIN I 2020-09-30 10:56:00 Marco Levy [facility] COMP. METABOLIC PANEL 2020-09-30 10:56:00 Millie sharad [facility] ([id number]) [facility] CBC WITH DIFF 2020-09-30 10:56:00 Shaina Brito [facility] N-TERMINAL PRO-BNP 2020-09-30 08:05:00 Shaina Brito [facility] OCCULT (GUAIAC) BLOOD 2020-09-30 02:10:00 Shaina Brito [facility] FECAL LEUKOCYTES 2020-09-30 02:10:00 Shaina Brito [facility] CLOSTRIDIUM DIFFICILE 2020-09-30 02:10:00 Shaina Brito [facility] FECAL PATHOGENS BY PCR 2020-09-30 02:10:00 Shaina Brito [facility] POCT GLUCOSE (AUTOMATED) 2020-09-30 00:35:00 Rene Evans [facility] BASIC METABOLIC PANEL 2020-09-29 21:11:00 Shaina Brito [facility] (NA, K, CL, CO2, GLUCOSE, Medica l Branch BUN, CREATININE, CA) HEMOGLOBIN 2020-09-29 21:11:00 [facility] T[facility]a [facility] TRANSTHORACIC ECHO (TTE) 2020-09-29 16:03:00 Marco Levy [facility] HB ECG ROUTINE & RHYTHM 2020-09-29 11:18:58 Shaina Brito [facility] OSMOLALITY URINE 2020-09-29 08:56:00 Millie sharad [facility] URINE CULTURE 2020-09-29 08:56:00 Millie sharad [facility] SODIUM, URINE RANDOM 2020-09-29 08:56:00 Shaina Brito [facility] PROTEIN CREAT RATIO URINE 2020-09-29 08:56:00 Shaina Brito [facility] BLOOD CULTURE SCREEN 2020-09-29 08:32:00 Shaina Brito [facility] LACTIC ACID WHOLE BLOOD 2020-09-29 08:32:00 Shaina Brito [facility] VITAMIN B12, LEVEL 2020-09-29 08:31:00 Shaina Brito [facility] C-REACTIVE PROTEIN 2020-09-29 08:31:00 Millie [facility] IRON PANEL 2020-09-29 08:31:00 Shaina Brito [facility] SEDIMENTATION RATE 2020-09-29 08:31:00 Shaina Brito [facility] DIFF CONSULT 2020-09-29 08:31:00 Millie [facility] Branch CBC WITH DIFF 2020-09-29 08:31:00 Millie sharad [facility] PROTHROMBIN TIME / INR 2020-09-29 08:31:00 Shaina Brito [facility] N-TERMINAL PRO-BNP 2020-09-29 08:31:00 Shaina Brito [facility] VITAMIN D, 25-OH 2020-09-29 08:31:00 Millie [facility] PROCALCITONIN 2020-09-29 08:31:00 Millie [facility] COVID-19 (ID NOW RAPID 2020-09-29 05:10:00 Rene Evans [facility] TESTING) Medical Branch LAB ONLY COVID 2020-09-29 05:10:00 Rene Evans [facility] INTERPRETATION [facility] CT ABDOMEN PELVIS W 2020-09-29 04:56:31 Rene Evans [facility] CONTRAST [facility] Branch URINALYSIS 2020-09-29 04:19:00 Rene Evans [facility] PHOSPHORUS 2020-09-29 03:54:00 Millie sharad [facility] CREATINE KINASE 2020-09-29 03:54:00 Millie [facility] URIC ACID 2020-09-29 03:54:00 Millie [facility] LIPASE 2020-09-29 03:54:00 Rene Evans [facility] MAGNESIUM 2020-09-29 03:54:00 Millie [facility] FERRITIN SERUM 2020-09-29 03:54:00 Millie [facility] TROPONIN I 2020-09-29 03:54:00 Marco Levy [facility] [place] THYROID STIMULATING 2020-09-29 03:54:00 Shaina Brito [facility] HORMONE [facility] Branch COMP. METABOLIC PANEL 2020-09-29 03:54:00 Rene Evans [facility] ([id number]) [facility] [place] LIPID PANEL ([id number])(TOTAL 2020-09-29 03:54:00 Shaina Brito [facility] CHOLESTEROL, [facility] TRIGLYCERIDES, HDL) CBC WITH DIFF 2020-09-29 03:54:00 Rene Evans [facility] GLYCOSYLATED HEMOGLOBIN 2020-09-29 03:54:00 Millie sharad [facility] (A1C) [facility] N-TERMINAL PRO-BNP 2020-09-29 03:54:00 Shaina Brito [facility] CONSENT/REFUSAL FOR 2020-09-29 03:18:51 Doctor Unassigned, [facility] DIAGNOSIS AND TREATMENT [place] [facility] NOTICE OF PRIVACY 2020-09-29 03:18:30 Doctor Unassigned, [facility] PRACTICES [place] [facility] CT ABDOMEN PELVIS W 2019-08-11 14:50:46 Corby Ca [facility] CONTRAST [facility] Branch COMP. METABOLIC PANEL 2019-08-11 08:00:00 Shaina Brito [facility] ([id number]) [facility] CBC WITH DIFFERENTIAL 2019-08-11 08:00:00 Shaina Brito [facility] CBC WITH DIFFERENTIAL 2019-08-11 08:00:00 Shaina Brito [facility] XR SMALL BOWEL SERIES 2019-08-10 21:18:47 Valente Piña [facility] XR ABDOMEN 1 VW 2019-08-10 11:52:39 Millie sharad [facility] PHOSPHORUS 2019-08-10 11:11:00 Millie [facility] CREATINE KINASE 2019-08-10 11:11:00 Millie sharad [facility] AMYLASE 2019-08-10 11:11:00 Millie [facility] LIPASE 2019-08-10 11:11:00 Shaina Brito [place] [facility] MAGNESIUM 2019-08-10 11:11:00 Shaina Brito [facility] TEST, SERUM 2019-08-10 11:11:00 Shaina Brito [facility] THYROID STIMULATING 2019-08-10 11:11:00 Shaina Brito [facility] HORMONE [facility] Branch COMP. METABOLIC PANEL 2019-08-10 11:11:00 Shaina Brito [facility] ([id number]) [facility] LIPID PANEL ([id number])(TOTAL 2019-08-10 11:11:00 Shaina Brito [facility] CHOLESTEROL, [facility] [facility] TRIGLYCERIDES, HDL) SEDIMENTATION RATE 2019-08-10 11:11:00 [facility] CBC WITH DIFFERENTIAL 2019-08-10 11:11:00 [facility] GLYCOSYLATED HEMOGLOBIN 2019-08-10 11:11:00 [facility] (A1C) [facility] PROTHROMBIN TIME / INR 2019-08-10 11:11:00 Shaina Brito [facility] CORONAVIRUS COVID-19 2019-08-10 09:04:00 Shaina Brito [facility] TESTING [facility] Encounters Start End Encounter Admission Attending Care Care Encounter Source Date/Time Date/Time Type Type Clinicians Facility Department ID 2021-05-06 Outpatient Kattegummul [id number] 14:30:56 a[facility] 2021-05-06 Outpatient Kattegummul STLMLC [facility] [id number] 14:26:04 a, Madhu [id number] [facility] 2021-05-06 Outpatient Kattegummul STLMLC [facility] [id number] 14:05:28 a, Madhu 65726 [facility] 2021-05-06 Outpatient Kattegummul [facility] [id number] 13:37:29 a, Madhu [id number] [facility] 2021-05-06 Outpatient Victoria[facility] 13:[facility]:02 Annalise [id number] [facility] 2021-05-06 Outpatient Harley[facility] 11:25:36 Annalise [id number] [facility] 2021-02-09 Emergency [facility] [id number] Univers 02:25:27 ity [facility] 2021-04-07 2021-04-07 Letter Orthopedic [facility] 1.2.840.114 [id number] Univers 00:00:00 00:00:00 (Out) Clinic SPECIALTY 350.1.13.10 ity of [facility] 4.2.7.[address] [facility] [place] [place] AT [phone] Or mariacarol [address] 2021-04-02 2021-04-02 Emergency [facility] [id number] Univers 12:58:00 15:25:00 [facility] 2021-04-02 2021-04-02 Emergency [facility] 1.2.840.114 [id number] Univers 12:58:00 15:25:00 Kinsey WHITT 350.1.13.10 ity [facility] [place] [phone] [facility] [address] 2021-03-11 2021-03-11 Telephone VERONIQUE Cruz 1.2.255.400 [id number] Univers 00:00:00 00:00:00 Frances SÁNCHEZ 350.1.13.10 it y of [facility] 4.2.7.2.686 Quang [phone] [facility] [address] 2021-03-10 2021-03-10 Outpatient R NETTIE [facility] [id number] Univers 14:45:00 14:51:40 LEXIE ity [facility] 2021-03-10 2021-03-10 Outpatient R [facility] [id number] Univers 14:45:00 14:45:00 [id number] ity [facility] 2021-03-10 2021-03-10 Laboratory Only, Ang Db Test [facility] 1.2.8 40.114 [id number] Univers 14:29:53 14:44:53 Only Unknown, Attending HEALTH 350.1.13.10 ity of [place] 4.2.7.2.686 Quang as MARINA?BLEA [phone] Or dical [address] MEDICAL OFFICE BUILDING 2021-03-10 2021-03-10 Orders Doctor VERONIQUE 1.2.840.114 [id number] Univers 00:00:00 00:00:00 Only Unassigned, GONZALO 350.1.13.10 ity of [place] [facility] 4.2.7.2.686 Quang as [phone] [facility] [address] 2021-02-18 2021-02-20 Inpatient JAIME, [facility] [id number] [address] [place] 00:00:00 00:00:00 CHERI 379 Method i 2021-02-03 2021-02-04 Emergency X [facility] ERT [id number] Univers 21:10:00 03:21:00 GARTH ity of [facility] 2020-10-21 2020-10-27 Inpatient SYLVIA, [facility] [id number] [place] 00:00:00 00:00:00 ROBERTH 980 Method i 2020-10-06 2020-10-06 Transition TaylorYelenali 1.2.840.114 [id number] Univers 00:00:00 00:00:00 of Care Madiha Sotelo 350.1.13.10 i ty of [place]2.[place] [id number] [facility] [address] 2020-09-28 2020-10-03 [facility] Rene Evans [facility] 1.2.840. 114 [id number] Univers 22:23:00 13:05:00 Encounter Shaina Brito 350.1.13.10 ity of [place] [phone] [facility] [address] 2020-09-28 2020-09-28 Orders Doctor PIPER 1.2.840.114 [id number] Univers 00:00:00 00:00:00 Only Unassigned, GONZALO 350.1.13.10 [facility] 4.2.7.2.686 Quang as [phone] [address] 2020-09-09 2020-09-12 Inpatient VIKTOR BILLINGS [facility] [id number] [place] 00:00:00 00:00:00 462 Method i 2020-08-08 2020-08-08 Outpatient Sami GERMAN [facility] [id number] Univers 15:40:00 15:40:00 TERRI ity [facility] 2020-07-11 2020-07-11 Outpatient [facility] [id number] Univers 15:40:00 15:40:00 ity [facility] 2020-06-09 2020-06-22 Inpatient VIKTOR BILLINGS [facility] 064 [id number] [place] 00:00:00 00:00:00 836 Method i 2020-03-19 2020-03-23 Inpatient DINAKAR, [facility] [id number] [place] 00:00:00 00:00:00 CHERI 742 Method i 2020-03-14 2020-03-18 Inpatient DINAKAR, [facility] [id number] [address] [place] 00:00:00 00:00:00 CHERI 157 Method i 2020-02-13 2020-02-13 Laboratory Lab, [facility] 1.2.840.114 [id number] 10:22:10 10:42:10 Only Fam Pob I Health 350.1.13.10 [place] 4.2.7.2.686 Professio [phone] nal [facility] Office Building [facility] 2020-02-13 2020-02-13 Laboratory Lab, [facility] Fam Pob I [facility] 1.2. 840.114 [id number] [facility] 10:22:10 10:42:10 Only Dulce Mari A Health 350.1.13.10 ity of [place] 4.2.7.2.686 Quang as Professio [phone] Or dical [address] Office Building One 2019-09-28 2019-09-28 Outpatient [facility] [id number] [facility] 09:00:00 09:00:00 t [facility] ent [facility] 2019-09-18 2019-09-18 Outpatient Brazluciana Lopez [id number] 09:30:00 09:30:00 t [facility] 2019-08-14 2019-08-14 Transition Jocelyne Alexandra 1.2.840.114 [id number] 00:00:00 00:00:00 of Care Jovanny Souza [place] 350.1.13.10 [place] 4.2.7.2.686 [phone] 403 2019-08-14 2019-08-14 Transition Jocelyne Alexandra 1.2.840.114 [id number] Univers 00:00:00 00:00:00 of Care Jovanny Souza [place]ot[place] 350.1.13.10 ity of [place] 4[place]2.7.2.686 [place] [phone] [place] [address] [address] 2019-08-10 2019-08-11 [facility] 1.2.321.939 [id number] 02:55:00 16:09:00 Encounter Shaina Whitt 350.1.13.10 [place] 4.2.7.2.686 [place] [phone] [facility] 2019-08-10 2019-08-11 Inpatient U [facility] SHRUTI [id number] Univers 02:55:00 16:09:00 [facility] 2019-08-10 2019-08-11 [facility] 1.2.574.687 [id number] Univers 02:55:00 16:09:00 Encounter Shaina Geraldine 350.1.13.10 ity of [place] [phone] [address] Results Test Description Test Time Test Comments Results Result Comments Source MAGNESIUM 2020-10-03 09:34:08 Test Item Value Reference Range Interpretation Comme nts MAGNESIUM (test code = 0033532587) 1.4 mg/dL 1.7-2.4 L Lab Interpretation (test code = 83079-6) [facility] (95112)2020-10-03 09:33:48 Test Item Value Reference Range Interpretation Comments NA (test code = 136 mmol/L 135-145 7045026967) K (test code = 3.3 mmol/L 3.5-5.0 L 5636220564) CL (test code = 100 mmol/L 98-108 0160596073) CO2 TOTAL (test code = 33 mmol/L 23-31 H 7030039705) AGAP (test code = 2-16 4821155413) BUN (test code = 3 mg/dL 7-23 L 7791541377) GLUCOSE (test code = 95 mg/dL 70-110 1439617613) CREATININE (test code = 0.47 mg/dL 0.50-1.04 L 4279454661) TOTAL BILI (test code = 1.5 mg/dL 0.1-1.1 H 8088906221) CALCIUM (test code = 8.1 mg/dL 8.6-10.6 L 8778642860) T PROTEIN (test code = 5.9 g/dL 6.3-8.2 L 6563823255) ALBUMIN (test code = 2.9 g/dL 3.5-5.0 L 3130644838) ALK PHOS (test code = 115 U/L 34-122 1756581012) ALTv (test code = 24 U/L 5-35 1742-6) AST(SGOT) (test code = 35 U/L 13-40 2928231550) eGFR (test code = mL/min/1.73m2 2709196830) SNOW (test code = SNOW) Association of [...] tests). Lab Interpretation Abnormal (test code = 45071-0) [facility] 09:33:28 Test Item Value Reference Range Interpretation Comments PHOSPHORUS (test code = 6199988028) 2.8 mg/dL 2.5-5.0 Lab Interpretation (test code = Normal 84619-7) [facility] WITH [id number] 09:31:46 Test Item Value Reference Range Interpretation [...] (test code = 53.8 fL 39.0-49.9 H 07571-9) RDW-CV (test code = 19.9 % 12.0-15.5 H 788-0) PLT (test code = See_Comment L [Automated 777-3) message] The sy stem which generated this result transmitted reference range : 166 - 358 10*3/ ?L. The reference r davi was not used to interpret this result as normal/abnormal . MPV (test code = 10.9 fL 9.5-12.9 75634-4) IPF % (test code = 3.6 % 1.3-7.7 Platelet count 3004977294) measured by fluorescence method. NRBC/100 WBC (test See_Comment [Automat ed code = 8274884859) message] The system which generated this result transmitted reference range : 0.0 - 10.0 /100 WBCs. The refer ence range was not u sed to interpret th is result as normal/abnormal . NRBC x10^3 (test code See_Comment [Auto mated = 8216407297) message] The s ystem which generated this result transmitted reference range : 10*3/?L. The reference range was not used to interpret this result as normal/abnormal . GRAN MAT (NEUT) % 68.1 % (test code = 770-8) IMM GRAN % (test code 1.10 % = 2027585995) LYMPH % (test code = 15.5 % 736-9) MONO % (test code = 11.3 % 5905-5) EOS % (test code = 3.4 % 713-8) BASO % (test code = 0.6 % 706-2) GRAN MAT x10^3(ANC) 2.42 10*3/uL 1.88-7.09 (test code = 8064789414) IMM GRAN x10^3 (test 0.04 10*3/uL 0.00-0.06 code = 1765627664) LYMPH x10^3 (test code 0.55 10*3/uL 1.32-3.29 L = 731-0) MONO x10^3 (test code 0.40 10*3/uL 0.33-0.92 = 742-7) EOS x10^3 (test code = 0.12 10*3/uL 0.03-0.39 711-2) BASO x10^3 (test code <0.03 0.01-0.07 = 704-7) Lab Interpretation Abnormal (test code = 42265-4) [facility] WITH [id number] 10:47:09 Test Item Value Reference Range Interpretation [...] (test code = 52.2 fL 39.0-49.9 H 46539-2) RDW-CV (test code = 18.6 % 12.0-15.5 H 788-0) PLT (test code = See_Comment L [Automated 777-3) message] The sy stem which generated this result transmitted reference range : 166 - 358 10*3/ ?L. The reference r davi was not used to interpret this result as normal/abnormal . MPV (test code = 10.1 fL 9.5-12.9 23209-4) IPF % (test code = 3.2 % 1.3-7.7 Platelet count 1240334746) measured by fluorescence method. NRBC/100 WBC (test See_Comment [Automat ed code = 5530478418) message] The system which generated this result transmitted reference range : 0.0 - 10.0 /100 WBCs. The refer ence range was not u sed to interpret th is result as normal/abnormal . NRBC x10^3 (test code See_Comment [Auto mated = 2642653129) message] The s ystem which generated this result transmitted reference range : 10*3/?L. The reference range was not used to interpret this result as normal/abnormal . GRAN MAT (NEUT) % 65.1 % (test code = 770-8) IMM GRAN % (test code 1.20 % = 0242193828) LYMPH % (test code = 16.9 % 736-9) MONO % (test code = 11.5 % 5905-5) EOS % (test code = 4.5 % 713-8) BASO % (test code = 0.8 % 706-2) GRAN MAT x10^3(ANC) 1.58 10*3/uL 1.88-7.09 L (test code = 8711640068) IMM GRAN x10^3 (test 0.03 10*3/uL 0.00-0.06 code = 4393074123) LYMPH x10^3 (test code 0.41 10*3/uL 1.32-3.29 L = 731-0) MONO x10^3 (test code 0.28 10*3/uL 0.33-0.92 L = 742-7) EOS x10^3 (test code = 0.11 10*3/uL 0.03-0.39 711-2) BASO x10^3 (test code <0.03 0.01-0.07 = 704-7) POLYCHROMASIA (test 2+ See_Comment [Automa josemanuel code = 05744-5) message] The system which generated this result transmitted reference range : 2+. The referen ce range was not u sed to interpret th is result as normal/abnormal . LG GRAN LYMPHS (test Rare Rare code = 8149569655) Lab Interpretation Abnormal (test code = 28206-9) [facility]. METABOLIC PANEL (92184)2020-10-02 10:19:28 Test Item Value Reference Range Interpretation Comments NA (test code = 135 mmol/L 135-145 1574207491) K (test code = 3.4 mmol/L 3.5-5.0 L 8348995289) CL (test code = 104 mmol/L 98-108 9572894299) CO2 TOTAL (test code = 27 mmol/L 23-31 4539809836) AGAP (test code = 2-16 6805337638) BUN (test code = 4 mg/dL 7-23 L 6110016593) GLUCOSE (test code = 97 mg/dL 70-110 8122924391) CREATININE (test code = 0.45 mg/dL 0.50-1.04 L 6453610348) TOTAL BILI (test code = 1.7 mg/dL 0.1-1.1 H 1443078668) CALCIUM (test code = 8.2 mg/dL 8.6-10.6 L 2650831812) T PROTEIN (test code = 6.0 g/dL 6.3-8.2 L 1434037723) ALBUMIN (test code = 3.1 g/dL 3.5-5.0 L 5704823136) ALK PHOS (test code = 120 U/L 34-122 3490648734) ALTv (test code = 26 U/L 5-35 1742-6) AST(SGOT) (test code = 39 U/L 13-40 8859970490) eGFR (test code = mL/min/1.73m2 8837864531) SNOW (test code = SNOW) Association of [...] tests). Lab Interpretation Abnormal (test code = 36696-8) [facility] COVID [id number] 02:50:27COVID DMT InterpretationInterpretation/Recommendations: Molecular NAAT Tests for [...] COVID-19 testing the patient has had at [facility], including molecular NAAT testing (more commonly known as PCR testing and Rapid ID Now testing) and antibody testing. It does not take into account any testing that a patient has had outside of the [facility] medical record. [facility] LABORATORY SERVICESCOVID Resu ksoEASS-BnM-4 NAAT (no units) ? ? Date ? Value ? 02/13/2020 ? Not Detected ? SARS-CoV-2 Rapid ID NOW (no units) ? ? Date ? Value ? 09/29/2020 ? Not Detected ? ? ? 08/10/2019 ? Not Detected ? [facility]ORAT[facility] SERVICESUnBaylor University Medical CenterCB WITH [id number] 10:31:29 Test Item Value Reference Range Interpretation [...] (test code = 52.3 fL 39.0-49.9 H 23118-4) RDW-CV (test code = 18.4 % 12.0-15.5 H 788-0) PLT (test code = See_Comment LL [Automated 777-3) message] The sy stem which generated this result transmitted reference range : 166 - 358 10*3/ ?L. The reference r davi was not used to interpret this result as normal/abnormal . MPV (test code = 11.2 fL 9.5-12.9 53992-7) IPF % (test code = 3.9 % 1.3-7.7 Platelet count 2112027306) measured by fluorescence method. NRBC/100 WBC (test See_Comment [Automat ed code = 2496919388) message] The system which generated this result transmitted reference range : 0.0 - 10.0 /100 WBCs. The refer ence range was not u sed to interpret th is result as normal/abnormal . NRBC x10^3 (test code <0.01 See_Comment [Auto mated = 5622713968) message] The s ystem which generated this result transmitted reference range : 10*3/?L. The reference range was not used to interpret this result as normal/abnormal . GRAN MAT (NEUT) % 57.5 % (test code = 770-8) IMM GRAN % (test code 0.50 % = 7570021093) LYMPH % (test code = 20.7 % 736-9) MONO % (test code = 13.3 % 5905-5) EOS % (test code = 6.9 % 713-8) BASO % (test code = 1.1 % 706-2) GRAN MAT x10^3(ANC) 1.08 10*3/uL 1.88-7.09 L (test code = 5916100773) IMM GRAN x10^3 (test <0.03 0.00-0.06 code = 1268201772) LYMPH x10^3 (test code 0.39 10*3/uL 1.32-3.29 L = 731-0) MONO x10^3 (test code 0.25 10*3/uL 0.33-0.92 L = 742-7) EOS x10^3 (test code = 0.13 10*3/uL 0.03-0.39 711-2) BASO x10^3 (test code <0.03 0.01-0.07 = 704-7) BASO STIPPLING (test Present A code = 703-9) ELLIPTO/OVAL (test 2+ See_Comment A [Automat ed code = 21288-3) message] The system which generated this result transmitted reference range : (none). The reference range was not used to interpret this result as normal/abnormal . POLYCHROMASIA (test 2+ See_Comment [Automa josemanuel code = 60968-7) message] The system which generated this result transmitted reference range : 2+. The referen ce range was not u sed to interpret th is result as normal/abnormal . Lab Interpretation Abnormal (test code = 86835-0) [facility] ([id number])2020-10-01 09:19:22 Test Item Value Reference Range Interpretation Comments NA (test code = 135 mmol/L 135-145 8290799460) K (test code = 4.0 mmol/L 3.5-5.0 1379614350) CL (test code = 107 mmol/L 98-108 6388020212) CO2 TOTAL (test code = 24 mmol/L 23-31 3487888456) AGAP (test code = 2-16 3457302510) BUN (test code = 7 mg/dL 7-23 0939925489) GLUCOSE (test code = 93 mg/dL 70-110 2629972230) CREATININE (test code = 0.47 mg/dL 0.50-1.04 L 8133485438) TOTAL BILI (test code = 1.6 mg/dL 0.1-1.1 H 4116919994) CALCIUM (test code = 8.1 mg/dL 8.6-10.6 L 0939154254) T PROTEIN (test code = 5.8 g/dL 6.3-8.2 L 5076395809) ALBUMIN (test code = 2.8 g/dL 3.5-5.0 L 7624604884) ALK PHOS (test code = 106 U/L 34-122 9787766958) ALTv (test code = 23 U/L 5-35 1742-6) AST(SGOT) (test code = 39 U/L 13 8782788741) eGFR (test code = mL/min/1.73m2 1375787192) SNOW (test code = SNOW) Association of [...] tests). Lab Interpretation Abnormal (test code = 09480-0) [facility] [id number] 20:47:45 Test Item Value Reference Range Interpretation Comments TROPONIN I (test 0.002 ng/mL See_Comment [Automated code = 3161109624) message] The system which generated this result [...] ? Lab Interpretation Normal (test code = 21440-8) [facility] [id number] 19:11:57 Test Item Value Reference Range Interpretation Comments URINE CULTURE (test code <10,000 CFU/mL = 630-4) Gram-Positive Cocci [facility] Center[facility] PATHOGENS BY [id number] 18:17:03 Test Item Value Reference Range Interpretation Comments Campylobacter (jejuni, Negative Negative, coli and upsaliensis) Indeterminate, (test code = 05740-6) See comment Plesiomonas shigelloides Negative Negative, (test code = 01356-1) Indeterminate, See comment Salmonella (test code = Negative Negative, 00579-4) Indeterminate, See comment Yersinia enterocolitica Negative Negative, (test code = 40092-1) Indeterminate, See comment Vibrio (test code = Negative Negative, 58324-9) Indeterminate, See comment Vibrio cholerae (test Negative Negative, code = 67256-0) Indeterminate, See comment Enteroaggregative E. Negative Negative, coli (EAEC) (test code = Indeterminate, 09607-8) See comment Enteropathogenic E. coli Negative Negative, N/A, (EPEC) (test code = Indeterminate, 23041-2) See comment Enterotoxigenic E. coli Negative Negative, (ETEC) (test code = Indeterminate, 73991-4) See comment Shiga toxin-Producing E. Negative Negative, coli (STEC) (test code = Indeterminate, 13649-3) See comment Shigella/Enteroinvasive Negative Negative, E. coli (EIEC) (test Indeterminate, code = 99655-9) See comment Cryptosporidium (test Negative Negative, code = 36401-0) Indeterminate, See comment Cyclospora cayetanensis Negative Negative, (test code = 95467-2) Indeterminate, See comment Entamoeba histolytica Negative Negative, (test code = 98024-7) Indeterminate, See comment Giardia lamblia (test Negative Negative, code = 74864-7) Indeterminate, See comment Adenovirus F 40/41 (test Negative Negative, code = 86848-3) Indeterminate, See comment Astrovirus (test code = Negative Negative, 10952-7) Indeterminate, See comment Norovirus GI/GII (test Negative Negative, code = 47538-7) Indeterminate, See comment Rotavirus A (test code = Negative Negative, 22683-2) Indeterminate, See comment Sapovirus (test code = Negative Negative, 02726-2) Indeterminate, See comment Clostridioides Positive Negative, A (Clostridium) difficile Indeterminate, Toxin A/B (test code = See comment 62702-7) SNOW (test code = SNOW) Based on [employer]ComArray GI Panel package insert, the [employer]ComArray GI Panel contains a single multiplexed assay [...] the binary toxin gene (CDT), and the sfhqpc-apgo-pqes deletion at nucleotide 117 within the gene [...] organism. Lab Interpretation (test Abnormal code = 06042-4) [facility] (GUAIAC) [id number] 14:26:32 Test Item Value Reference Range Interpretation Comments Occult (guaiac) Blood (test code = Negative Negative 2335-8) Lab Interpretation (test code = Normal 13148-6) [facility] WITH [id number] 13:54:12 Test Item Value Reference Range Interpretation [...] (test code = 52.9 fL 39.0-49.9 H 41375-5) RDW-CV (test code = 18.3 % 12.0-15.5 H 788-0) PLT (test code = See_Comment LL [Automated 777-3) message] The sy stem which generated this result transmitted reference range : 166 - 358 10*3/ ?L. The reference r davi was not used to interpret this result as normal/abnormal . MPV (test code = 10.8 fL 9.5-12.9 79850-4) IPF % (test code = 4.2 % 1.3-7.7 Platelet count 5893071398) measured by fluorescence method. NRBC/100 WBC (test See_Comment [Automat ed code = 9958377406) message] The system which generated this result transmitted reference range : 0.0 - 10.0 /100 WBCs. The refer ence range was not u sed to interpret th is result as normal/abnormal . NRBC x10^3 (test code <0.01 See_Comment [Auto mated = 4633873248) message] The s ystem which generated this result transmitted reference range : 10*3/?L. The reference range was not used to interpret this result as normal/abnormal . GRAN MAT (NEUT) % 60.0 % (test code = 770-8) IMM GRAN % (test code 0.40 % = 5762662304) LYMPH % (test code = 20.6 % 736-9) MONO % (test code = 11.3 % 5905-5) EOS % (test code = 6.9 % 713-8) BASO % (test code = 0.8 % 706-2) GRAN MAT x10^3(ANC) 1.49 10*3/uL 1.88-7.09 L (test code = 6192756020) IMM GRAN x10^3 (test <0.03 0.00-0.06 code = 1807211728) LYMPH x10^3 (test code 0.51 10*3/uL 1.32-3.29 L = 731-0) MONO x10^3 (test code 0.28 10*3/uL 0.33-0.92 L = 742-7) EOS x10^3 (test code = 0.17 10*3/uL 0.03-0.39 711-2) BASO x10^3 (test code <0.03 0.01-0.07 = 704-7) Lab Interpretation Abnormal (test code = 55613-3) [facility] ([id number])2020-09-30 12:47:49 Test Item Value Reference Range Interpretation Comments NA (test code = 135 mmol/L 135-145 2357767634) K (test code = 4.0 mmol/L 3.5-5.0 1216448967) CL (test code = 108 mmol/L 98-108 9740910144) CO2 TOTAL (test code = 23 mmol/L 23-31 5664224918) AGAP (test code = 2-16 7223168723) BUN (test code = 8 mg/dL 7-23 5964892081) GLUCOSE (test code = 109 mg/dL 70-110 6722388056) CREATININE (test code = 0.52 mg/dL 0.50-1.04 2527225485) TOTAL BILI (test code = 1.7 mg/dL 0.1-1.1 H 7002351628) CALCIUM (test code = 8.0 mg/dL 8.6-10.6 L 9640903427) T PROTEIN (test code = 5.7 g/dL 6.3-8.2 L 3270615697) ALBUMIN (test code = 2.7 g/dL 3.5-5.0 L 4589710414) ALK PHOS (test code = 106 U/L 34-122 7277550290) ALTv (test code = 22 U/L 5-35 1742-6) AST(SGOT) (test code = 34 U/L 13-40 6878843326) eGFR (test code = mL/min/1.73m2 3057723374) SNOW (test code = SNOW) Association of [...] tests). Lab Interpretation Abnormal (test code = 59369-0) [id number] 11:49:39 Test Item Value Reference Range Interpretation Comments Fecal Leukocytes (test code = Positive Negative A [id number]) Lab Interpretation (test code = Abnormal 10866-7) [facility] [id number] 10:20:53 Test Item Value Reference Range Interpretation Comments NT-proBNP (test code 68 pg/mL See_Comment [Autom ated = [id number]) message] The system which generated this result transmitted reference range : <=125. The reference range was not used to interpret this result as normal/abnormal . SNOW (test code = SNOW) Biotin has been reported to cause a negative bias, interpret results relative to patient's use of biotin. Lab Interpretation Normal (test code = 87578-1) [facility] [id number] 05:18:16 Test Item Value Reference Range Interpretation Comments Clostridioides (Clostridium) Negative Negative difficile (test code = 88706-6) Lab Interpretation (test code = Normal 59064-0) [facility]2020-09-30 00:54:42 Test Item Value Reference Range Interpretation Comments POCT GLU (test code = 6096964245) 111 mg/dL 70-110 H Lab Interpretation (test code = Abnormal 06095-2) [facility]BAS[facility]OLIC PANEL (NA, K, CL, CO2, GLUCOSE, BUN, CREATININE, CA)2020-09-29 22:08:22 Test Item Value Reference Range Interpretation Comments NA (test code = 135 mmol/L 135-145 5569155703) K (test code = 3.7 mmol/L 3.5-5.0 3020729515) CL (test code = 108 mmol/L 98-108 1264304814) CO2 TOTAL (test code = 22 mmol/L 23-31 L 7738694598) AGAP (test code = 2-16 2565062944) BUN (test code = 9 mg/dL 7-23 7070225769) GLUCOSE (test code = 104 mg/dL 70-110 3282151812) CREATININE (test code = 0.51 mg/dL 0.50-1.04 8428008786) CALCIUM (test code = 7.9 mg/dL 8.6-10.6 L 8585891742) eGFR (test code = mL/min/1.73m2 4870492324) SNOW (test code = SNOW) Association of [...] tests). Lab Interpretation Abnormal (test code = 53324-6) [facility]HEMOGLOBIN2021-06-21 21:41:20 Test Item Value Reference Range Interpretation Comments HGB (test code = 718-7) 7.4 g/dL 11.6-15.0 L Lab Interpretation (test code = Abnormal 33597-1) [facility] CenterVITAMIN B12, [id number] 20:39:52 Test Item Value Reference Range Interpretation Comments VIT B12 (test code = 212 pg/mL 240-930 L 2349124225) SNOW (test code = SNOW) Biotin has been reported to cause a positive bias, interpret results relative to patient's use of biotin. 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.[facility] CenterC-REACTIVE [id number] 17:01:56 Test Item Value Reference Range Interpretation Comments CRP (test code = 8139206621) 4.7 mg/dL <0.8 H Lab Interpretation (test code = Abnormal 74608-3) [facility] CenterVIT[facility]IN D, [id number] 16:43:29 Test Item Value Reference Range Interpretation Comments VIT D 25OH (test code = <13 25-80 L 65969-5) SNOW (test code = SNOW) Deficiency: <20 ng/mLInsufficiency: 20-24 ng/mLOptimal: 25-80 ng/mL Lab Interpretation (test Abnormal code = 24570-2) [facility] CenterPROCALCITONIN2021-06-21 16:15:30 Test Item Value Reference Range Interpretation Comments Procalcitonin (test 0.08 ng/mL <0.07 H code = 0764697607) SNOW (test code = SNOW) INTERPRETATION OF [...] lung abscess/empyema. For further information please refer to:[email or web address] Lab Interpretation Abnormal (test code = 22222-0) [facility] CenterOSMOLALITY [id number] 15:35:14 Test Item Value Reference Range Interpretation Comments OSMO U (test code = See_Comment [Automa josemanuel message] 0183067372) The system [employer] generated this result transmitted ref erence range: 50-1,100 mOsm/kg. The re ference range was not u sed to interpret this result as normal/abnor mal. Lab Interpretation (test Normal code = 89482-2) [facility] CenterTROPONIN [id number] 14:04:56 Test Item Value Reference Range Interpretation Comments TROPONIN I (test 0.002 ng/mL See_Comment [Automated code = 0293598456) message] The system which generated this result [...] ? Lab Interpretation Normal (test code = 28670-3) [facility] CenterCT ABDOMEN PELVIS W [id number] 13:37:17 1. ?Findings concerning for infectious or [...] reviewed this study and agree with theabove report.[facility] WITH [id number] 11:41:25 Test Item Value Reference Range Interpretation Comments WBC (test code = See_Comment L [Automated 3090-2) message] The system which generated this result [...] (test code = 52.4 fL 39.0-49.9 H 66061-4) RDW-CV (test code = 18.2 % 12.0-15.5 H 788-0) PLT (test code = See_Comment LL [Automated 777-3) message] The system which generated this result transmit josemanuel reference range : 166 - 358 10*3/ ?L. The reference range was not u sed to interpret th is result as normal/abnormal . MPV (test code = Not Measure d 05667-7) IPF % (test code = 4.3 % 1.3-7.7 Platelet count 6092286256) measured by fluorescence method. NRBC/100 WBC (test See_Comment [Automat ed code = 2803571335) message] The system which generated this result transmit josemanuel reference range : 0.0 - 10.0 /100 WBCs. The reference range was not used to interpret this result as normal/abnormal . NRBC x10^3 (test code <0.01 See_Comment [Auto mated = 7749447134) message] The system which generated this result transmit josemanuel reference range : 10*3/?L. The reference range was not used to interpret this result as normal/abnormal . GRAN MAT (NEUT) % 74.4 % (test code = 770-8) IMM GRAN % (test code 0.50 % = 9277925228) LYMPH % (test code = 10.3 % 736-9) MONO % (test code = 12.3 % 5905-5) EOS % (test code = 2.0 % 713-8) BASO % (test code = 0.5 % 706-2) GRAN MAT x10^3(ANC) 3.02 10*3/uL 1.88-7.09 (test code = 8963624301) IMM GRAN x10^3 (test <0.03 0.00-0.06 code = 9105277917) LYMPH x10^3 (test 0.42 10*3/uL 1.32-3.29 L code = 731-0) MONO x10^3 (test code 0.50 10*3/uL 0.33-0.92 = 742-7) EOS x10^3 (test code 0.08 10*3/uL 0.03-0.39 = 711-2) BASO x10^3 (test code <0.03 0.01-0.07 = 704-7) PLT ESTIMATE (test Decreased Normal A code = 9317-9) SNOW (test code = SNOW) CBC smear reduced platelet Lab Interpretation Abnormal (test code = 13534-5) [facility] CenterN-TERMINAL [id number] 11:07:24 Test Item Value Reference Range Interpretation Comments NT-proBNP (test code 79 pg/mL See_Comment [Autom ated = 2917675623) message] The system which generated this result transmitted reference range : <=125. The reference range was not used to interpret this result as normal/abnormal . SNOW (test code = SNOW) Biotin has been reported to cause a negative bias, interpret results relative to patient's use of biotin. Lab Interpretation Normal (test code = 06323-3) [facility] CenterIRON [id number] 11:04:41 Test Item Value Reference Range Interpretation Comments IRON (test code = 7999285027) 31 ug/dL 50-160 L TIBC (test code = 1077022709) 295 ug/dL 250-410 % FE SAT (test code = 9938486558) 11 % 20-50 L Lab Interpretation (test code = Abnormal 26279-2) [facility] CenterPROTEIN CREAT RATIO URINE [id number] 10:57:19 Test Item Value Reference Range Interpretation Comments T. PROT U (test code = 2888-6) 9 mg/dL CREAT U (test code = 6511546552) 187.5 mg/dL Protein/Creatinine Ratio Urine 0.0-2.0 (test code = 4011039354) [facility] CenterSODIUM, URINE [id number] 10:53:21 Test Item Value Reference Range Interpretation Comments NA URINE (test code = 7694543894) 30 mmol/L [facility] CenterSEDIMENTATION [id number] 10:33:04 Test Item Value Reference Range Interpretation Comments ESR (test code = See_Comment [Automated message] 0859554835) The system [employer] generated this result transmitted ref erence range: 0 - 20 m m/HR. The reference r davi was not used to interpret this result as normal/abnor mal. Lab Interpretation (test Normal code = 56360-2) [facility] CenterPROTHROMBIN TIME / [id number] 09:43:39 Test Item Value Reference Range Interpretation Comments PROTIME PATIENT (test See_Comment H [Auto mated message] code = 5964-2) The system Status Overload generated this result transmitted ref erence range: 12.0 - 1 4.7 Seconds. The reference range was not used to int erpret this result as normal/abnormal . INR (test code = 6301-6) Nor mal INR <1.1; Warfarin Therap eutic range 2.0 to 3. 0 or 2.5 to 3.5, dep ending upon the indica tions. Lab Interpretation (test Abnormal code = 99944-6) [facility] CenterLactic Acid Whole [id number] 08:42:38 Test Item Value Reference Range Interpretation Comments LACTIC ACID (test code = 1.47 mmol/L 0.50-2.20 4881464396) Lab Interpretation (test code = Normal 97323-3) [facility] CenterFERRITIN [id number] 07:31:09 Test Item Value Reference Range Interpretation Comments FERRITIN (test code = 12.2 ng/mL 11.0-264.0 2314905229) SNOW (test code = SNOW) Biotin has been reported to cause a negative bias, interpret results relative to patient's use of biotin. Lab Interpretation (test Normal code = 74796-4) [facility] CenterTHYROID STIMULATING [id number] 07:27:08 Test Item Value Reference Range Interpretation Comments TSH (test code = See_Comment [Automated message] 8844255771) The system [employer] generated this result transmitted ref erence range: 0.45 - 4 .70 mIU/L. The refe rence range was not u sed to interpret this result as normal/abnor mal. Lab Interpretation (test Normal code = 42006-9) [facility] CenterGLYCOSYLATED HEMOGLOBIN (A1C)2020-09-29 07:05:40 Test Item Value Reference Range Interpretation Comments HGB A1C (test code = 5.0 % 4.0-5.7 4548-4) SNOW (test code = SNOW) Reference RangesNormal: <5.7%Prediabetes: 5.7 - 6.4%Diabetes: > 6.5% Lab Interpretation (test Normal code = 90898-8) [facility] CenterURIC [id number] 07:05:35 Test Item Value Reference Range Interpretation Comments URIC ACID (test code = 7051685019) 4.2 mg/dL 2.9-6.0 Lab Interpretation (test code = Normal 34616-5) [facility] CenterCREATINE [id number] 07:05:30 Test Item Value Reference Range Interpretation Comments CK (test code = 6561475505) 192 U/L 33-194 Lab Interpretation (test code = Normal 36055-2) [facility] CenterN-TERMINAL [id number] 07:05:30 Test Item Value Reference Range Interpretation Comments NT-proBNP (test code 94 pg/mL See_Comment [Autom ated = 6179459915) message] The system which generated this result transmitted reference range : <=125. The reference range was not used to interpret this result as normal/abnormal . SNOW (test code = SNOW) Biotin has been reported to cause a negative bias, interpret results relative to patient's use of biotin. Lab Interpretation Normal (test code = 27441-0) [facility] CenterMAGNESIUM2021-06-21 07:04:24 Test Item Value Reference Range Interpretation Comments MAGNESIUM (test code = 0676775212) 1.8 mg/dL 1.7-2.4 Lab Interpretation (test code = Normal 15239-7) [facility] CenterPHOSPHORUS2021-06-21 07:03:39 Test Item Value Reference Range Interpretation Comments PHOSPHORUS (test code = 5910058047) 2.2 mg/dL 2.5-5.0 L Lab Interpretation (test code = Abnormal 51994-3) [facility] CenterLIPID PANEL (20183)(TOTAL CHOLESTEROL, TRIGLYCERIDES, HDL)2020-09-29 06:56:06 Test Item Value Reference Range Interpretation Comments CHOL (test code = 132 mg/dL 120-200 8081493287) HDL (test code = 41 mg/dL >50 L 8822297495) HDLC RATIO (test code = See_Comment [Au tomated message] 6507097540) The system [employer] generated this result transmit josemanuel reference range : <=4.5. The refe rence range was not u sed to interpret th is result as normal/abnormal . TRIG (test code = 73 mg/dL 30-170 9424953986) LDL CHOL (test code = 76 mg/dL See_Comment [Auto mated message] 44211-9) The system [employer] generated this result transmit josemanuel reference range : <=160. The refe rence range was not u sed to interpret th is result as normal/abnormal . VLDL (test code = 15 mg/dL 5-60 0147643090) Lab Interpretation (test Abnormal code = 30623-1) [facility] CenterCOVID-19 (ID NOW RAPID TESTING)2020-09-29 06:24:26 Test Item Value Reference Range Interpretation Comments SARS-CoV-2 Rapid ID NOW Not Detected Not Detected (test code = 34409-0) SNOW (test code = SNOW) ID NOW COVID-19 Assay is an isothermal nucleic acid amplification test intended for the qualitative detection of nucleic acid from SARS-CoV-2 viral RNA in nasopharyngeal (MEDICAL RECORD ASSISTANT) specimens. It is used under Emergency Use [...] indicated. Lab Interpretation Normal (test code = 40322-1) [facility] CenterURINALYSIS2021-06-21 04:43:31 Test Item Value Reference Range Interpretation Comments APPEARANCE (test code = Clear Clear 1860913167) COLOR (test code = Rosanne Yellow A 8631562852) PH (test code = 4.8-8.0 5502764434) SP GRAVITY (test code = 1.003-1.030 1228716211) GLU U QUAL (test code = Normal Normal 5817993952) BLOOD (test code = Negative Negative 6111457782) KETONES (test code = Negative Negative 2936843182) PROTEIN (test code = 30 mg/dL Negative A 2887-8) UROBILIN (test code = Normal Normal 1983165612) BILIRUBIN (test code = Negative Negative 4618519607) NITRITE (test code = Negative Negative 1224649009) LEUK RANULFO (test code = 25/uL Negative A 4458712660) RBC/HPF (test code = See_Comment [Autom ated message] 9604446153) The system [employer] generated this result transmitted ref erence range: 0 - 3 HP F. The reference range was not used to int erpret this result as normal/abnormal . WBC/HPF (test code = See_Comment [Autom ated message] 8139746080) The system [employer] generated this result transmitted ref erence range: 0 - 5 HP F. The reference range was not used to int erpret this result as normal/abnormal . BACTERIA (test code = Few Negative A 8009575398) MUCOUS (test code = Moderate Negative LPF A 2185219318) SQ EPITH (test code = HPF 8092985370) Lab Interpretation (test Abnormal code = 94362-5) [facility] CenterCBC WITH [id number] 04:39:35 Test Item Value Reference Range Interpretation Comments WBC (test code = See_Comment [Automated 1390-2) message] The system which generated this result transmit josemanuel reference range : 4.30 - 11.10 10*3/?L. The reference range was not used to interpret this result as normal/abnormal . RBC (test code = See_Comment L [Automated 289-8) message] The system which generated this result [...] (test code = 51.3 fL 39.0-49.9 H 84245-4) RDW-CV (test code = 18.1 % 12.0-15.5 H 788-0) PLT (test code = See_Comment L [Automated 777-3) message] The system which generated this result transmit josemanuel reference range : 166 - 358 10*3/ ?L. The reference range was not u sed to interpret th is result as normal/abnormal . MPV (test code = 11.1 fL 9.5-12.9 92119-4) IPF % (test code = 3.7 % 1.3-7.7 Platelet count 9903944377) measured by fluorescence method. NRBC/100 WBC (test See_Comment [Automat ed code = 7679669547) message] The system which generated this result transmit josemanuel reference range : 0.0 - 10.0 /100 WBCs. The reference range was not used to interpret this result as normal/abnormal . NRBC x10^3 (test code <0.01 See_Comment [Auto mated = 1219397399) message] The system which generated this result transmit josemanuel reference range : 10*3/?L. The reference range was not used to interpret this result as normal/abnormal . GRAN MAT (NEUT) % 76.4 % (test code = 770-8) IMM GRAN % (test code 0.80 % = 2041433354) LYMPH % (test code = 9.4 % 736-9) MONO % (test code = 11.3 % 5905-5) EOS % (test code = 1.5 % 713-8) BASO % (test code = 0.6 % 706-2) GRAN MAT x10^3(ANC) 4.07 10*3/uL 1.88-7.09 (test code = 9877571590) IMM GRAN x10^3 (test 0.04 10*3/uL 0.00-0.06 code = 4012213726) LYMPH x10^3 (test 0.50 10*3/uL 1.32-3.29 L code = 731-0) MONO x10^3 (test code 0.60 10*3/uL 0.33-0.92 = 742-7) EOS x10^3 (test code 0.08 10*3/uL 0.03-0.39 = 711-2) BASO x10^3 (test code 0.03 10*3/uL 0.01-0.07 = 704-7) PLT ESTIMATE (test Decreased Normal A code = 9317-9) SNOW (test code = SNOW) Juan slide adgrees to decreased Platelet Lab Interpretation Abnormal (test code = 46170-5) [facility]. METABOLIC PANEL (80257)2020-09-29 04:25:42 Test Item Value Reference Range Interpretation Comments NA (test code = 134 mmol/L 135-145 L 4924729756) K (test code = 3.2 mmol/L 3.5-5.0 L 1314201210) CL (test code = 104 mmol/L 98-108 0117422402) CO2 TOTAL (test code = 24 mmol/L 23-31 5447109652) AGAP (test code = 2-16 3366908360) BUN (test code = 8 mg/dL 7-23 0390104433) GLUCOSE (test code = 105 mg/dL 70-110 8066999725) CREATININE (test code = 0.51 mg/dL 0.50-1.04 4164702086) TOTAL BILI (test code = 2.5 mg/dL 0.1-1.1 H 9023691791) CALCIUM (test code = 8.2 mg/dL 8.6-10.6 L 3364334723) T PROTEIN (test code = 6.3 g/dL 6.3-8.2 6830337509) ALBUMIN (test code = 3.1 g/dL 3.5-5.0 L 7213684599) ALK PHOS (test code = 136 U/L 34-122 H 0904721054) ALTv (test code = 24 U/L 5-35 1742-6) AST(SGOT) (test code = 30 U/L 13-40 4657794106) eGFR (test code = mL/min/1.73m2 4765226208) SNOW (test code = SNOW) Association of [...] tests). Lab Interpretation Abnormal (test code = 71284-1) [facility] CenterLIPASE2021-06-21 04:25:42 Test Item Value Reference Range Interpretation Comments LIPASE (test code = 3369046757) 102 U/L 0-220 Lab Interpretation (test code = Normal 73781-0) [facility] CenterSARS-CoV-2 (COVID-19) RNA [Presence] in Respiratory specimen by HELENA with probe [id number] 00:49:19 Test Item Value Reference Range Interpretation Comments SARS-CoV-2 (COVID-19) RNA Not detected Not-Detected [Presence] in Respiratory specimen by HELENA with probe detection (test code = 36774-3) 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 employed in a healthcare setting (test code = 79822-3) Whether the patient has symptoms related to condition of interest (test code = 20987-8) Patient was hospitalized because of this condition (test code = 62177-0) Whether the patient was admitted to intensive care unit (ICU) for condition of interest (test code = 90499-9) Whether patient resides in a congregate care setting (test code = 39725-2) SARS-CoV-2 (COVID-19) RNA [Presence] in Respiratory specimen by HELENA with probe [id number] 02:47:43 Test Item Value Reference Range Interpretation Comments SARS-CoV-2 (COVID-19) RNA Not detected Not-Detected [Presence] in Respiratory specimen by HELENA with probe detection (test code = 86220-7) SARS-CoV-2 (COVID-19) RNA [Presence] in Respiratory specimen by HELENA with probe [id number] 16:32:37 Test Item Value Reference Range Interpretation Comments SARS-CoV-2 (COVID-19) RNA Not detected Not-Detected [Presence] in Respiratory specimen by HELENA with probe detection (test code = 10001-1) SARS-CoV-2 (COVID-19) RNA [Presence] in Respiratory specimen by HELENA with probe quqatgofj2630-53-16 05:29:57 Test Item Value Reference Range Interpretation Comments SARS-CoV-2 (COVID-19) RNA Not detected Not-Detected [Presence] in Respiratory specimen by HELENA with probe detection (test code = 18621-0) CT ABDOMEN PELVIS W [id number] 19:27:49 1. ?No evidence of small bowel [...] reviewed this study and agree with the abovereport.[facility] WITH [id number] 11:56:00 Test Item Value Reference Range Interpretation Comments WBC (test code = See_Comment L [Automated 3290-2) message] The sy stem which generated this [...] (test code = 58.0 fL 39-49.9 H 49940-9) RDW-CV (test code = 16.6 % 12-15.5 H 788-0) PLT (test code = See_Comment LL [Automated 777-3) message] The sy stem which generated this result transmitted reference range : 166 - 358 10*3/ ?L. The reference r davi was not used to interpret this result as normal/abnormal . MPV (test code = 11.0 fL 9.5-12.9 82147-3) IPF % (test code = 5.5 % 1.3-7.7 Platelet count 7128408609) measured by fluorescence method. NRBC/100 WBC (test See_Comment [Automat ed code = 1318958692) message] The system which generated this result transmitted reference range : 0.0 - 10.0 /100 WBCs. The refer ence range was not u sed to interpret th is result as normal/abnormal . NRBC x10^3 (test code <0.01 See_Comment [Auto mated = 0200615031) message] The s ystem which generated this result transmitted reference range : 10*3/?L. The reference range was not used to interpret this result as normal/abnormal . GRAN MAT (NEUT) % 57.6 % (test code = 770-8) IMM GRAN % (test code 0.00 % = 5325006860) LYMPH % (test code = 27.1 % 736-9) MONO % (test code = 11.8 % 5905-5) EOS % (test code = 3.1 % 713-8) BASO % (test code = 0.4 % 706-2) GRAN MAT x10^3(ANC) 1.47 10*3/uL 1.88-7.09 L (test code = 4821040454) IMM GRAN x10^3 (test <0.03 0-0.06 code = 6230470464) LYMPH x10^3 (test code 0.69 10*3/uL 1.32-3.29 L = 731-0) MONO x10^3 (test code 0.30 10*3/uL 0.33-0.92 L = 742-7) EOS x10^3 (test code = 0.08 10*3/uL 0.03-0.39 711-2) BASO x10^3 (test code <0.03 0.01-0.07 = 704-7) Lab Interpretation Abnormal (test code = 86942-1) [facility]. METABOLIC PANEL (25774)2019-08-11 10:42:00 Test Item Value Reference Range Interpretation Comments NA (test code = 138 mmol/L 135-145 3074495137) K (test code = 3.8 mmol/L 3.5-5 5811194173) CL (test code = 108 mmol/L 98-108 3061495856) CO2 TOTAL (test code = 24 mmol/L 23-31 5850733814) AGAP (test code = 2-16 5630954792) BUN (test code = 10 mg/dL 7-23 2114895290) GLUCOSE (test code = 108 mg/dL 70-110 9648864968) CREATININE (test code = 0.43 mg/dL 0.5-1.04 L 7849638856) TOTAL BILI (test code = 2.5 mg/dL 0.1-1.1 H 0743383461) CALCIUM (test code = 8.4 mg/dL 8.6-10.6 L 6349851571) T PROTEIN (test code = 6.1 g/dL 6.3-8.2 L 9631632688) ALBUMIN (test code = 3.1 g/dL 3.5-5 L 9285869768) ALK PHOS (test code = 102 U/L 34-122 8458087880) ALTv (test code = 52 U/L 5-35 H 1742-6) AST(SGOT) (test code = 63 U/L 13-40 H 8554437844) eGFR Calculation mL/min/1.73m2 (Non-) (test code = 6512963433) eGFR Calculation mL/min/1.73m2 () (test code = 0139549477) SNOW (test code = SNOW) Association of [...] tests). Lab Interpretation Abnormal (test code = 27032-3) [facility] CenterXR SMALL BOWEL [id number] 02:08:11 1. ?No bowel obstruction. No fluoroscopic images or fluoroscopic time. RL 6200 HISTORY: ?Abdominal pain COMPARISON: ?None FINDINGS: There is a nonobstructive bowel gas pattern. Contrast is seen throughoutthe entire small bowel and colon. Nodilated loops of bowel demonstrated. [facility], Radiant Results Inft User - 08/10/2019 9:09 PM CDTHISTORY: Abdominal painCOMPARISON: NoneFINDINGS:There is a nonobstructive bowel gas pattern. Contrast is seen throughoutthe entire small bowel and colon. No dilated loops of bowel demonstrated.IMPRESSION1.No bowel obstruction.No fluoroscopic images or fluoroscopic time.RL 6200 UnB[facility] CenterSEDIMENTATION [id number] 16:19:00 Test Item Value Reference Range Interpretation Comments ESR (test code = See_Comment [Automated message] 3655141462) The system [employer] generated this result transmitted ref erence range: 0 - 20 m m/HR. The reference r davi was not used to interpret this result as normal/abnor mal. Lab Interpretation (test Normal code = 76367-4) [facility] CenterAbdominal 1 View - To confirm nasogastric [...] system. No acute bony abnormalities are noted. [facility], Radiant Results Inft User - 08/10/2019 10:25 [...] reviewed this study and agree with the abovereport.[facility] WITH [id number] 13:48:00 Test Item Value Reference Range Interpretation [...] (test code = 58.4 fL 39-49.9 H 46184-2) RDW-CV (test code = 16.7 % 12-15.5 H 788-0) PLT (test code = See_Comment LL [Automated 777-3) message] The system which generated this result transmit josemanuel reference range : 166 - 358 10*3/ ?L. The reference range was not u sed to interpret th is result as normal/abnormal . MPV (test code = 10.5 fL 9.5-12.9 51688-0) IPF % (test code = 3.0 % 1.3-7.7 Platelet count 0085515379) measured by fluorescence method. NRBC/100 WBC (test See_Comment [Automat ed code = 0693490748) message] The system which generated this result transmit josemanuel reference range : 0.0 - 10.0 /100 WBCs. The reference range was not used to interpret this result as normal/abnormal . NRBC x10^3 (test code <0.01 See_Comment [Auto mated = 7565638454) message] The system which generated this result transmit josemanuel reference range : 10*3/?L. The reference range was not used to interpret this result as normal/abnormal . GRAN MAT (NEUT) % 57.1 % (test code = 770-8) IMM GRAN % (test code 0.40 % = 4521001946) LYMPH % (test code = 28.1 % 736-9) MONO % (test code = 10.4 % 5905-5) EOS % (test code = 3.6 % 713-8) BASO % (test code = 0.4 % 706-2) GRAN MAT x10^3(ANC) 1.42 10*3/uL 1.88-7.09 L (test code = 4530277952) IMM GRAN x10^3 (test <0.03 0-0.06 code = 8825795803) LYMPH x10^3 (test 0.70 10*3/uL 1.32-3.29 L code = 731-0) MONO x10^3 (test code 0.26 10*3/uL 0.33-0.92 L = 742-7) EOS x10^3 (test code 0.09 10*3/uL 0.03-0.39 = 711-2) BASO x10^3 (test code <0.03 0.01-0.07 = 704-7) PLT ESTIMATE (test Critically Normal AA code = 9317-9) Decreased Lab Interpretation Abnormal (test code = 51057-4) [facility] (A1C)2019-08-10 13:13:00 Test Item Value [...] Indicated Lab Interpretation Normal (test code = 97568-0) [facility] CenterTHY[facility] STIMULATING [id number] 13:05:00 Test Item Value Reference Range Interpretation Comments TSH (test code = See_Comment [Automated message] [id number]) The system [employer] generated this result transmitted ref erence range: 0.45 - 4 .70 mIU/L. The refe rence range was not u sed to interpret this result as normal/abnor mal. Lab Interpretation (test Normal code = 31463-9) [facility] TEST, [id number] 13:04:00 Test Item Value Reference Range Interpretation Comments PREG SERUM (test code Negative = 3068204000) SNOW (test code = SNOW) Less than 10 IU/L. ?If low titer or ectopic is suspected, resubmit specimen in 48-72 hours. [facility] CenterLIP[facility] PANEL (80467)(TOTAL CHOLESTEROL, TRIGLYCERIDES, HDL)2019-08-10 12:36:00 Test Item Value Reference Range Interpretation Comments CHOL (test code = 158 mg/dL 120-200 4182569315) HDL (test code = 47 mg/dL >50 L 9639360939) HDLC RATIO (test code = See_Comment [Au tomated message] 7530994376) The system [employer] generated this result transmit josemanuel reference range : <=4.5. The refe rence range was not u sed to interpret th is result as normal/abnormal . TRIG (test code = 51 mg/dL 30-170 2163319828) LDL CHOL (test code = 101 mg/dL See_Comment [Auto mated message] 55530-6) The system [employer] generated this result transmit josemanuel reference range : <=160. The refe rence range was not u sed to interpret th is result as normal/abnormal . VLDL (test code = 10 mg/dL 5-60 8641642379) Lab Interpretation (test Abnormal code = 91264-3) [facility] CenterCOMP. METABOLIC PANEL (98965)2019-08-10 12:35:00 Test Item Value Reference Range Interpretation Comments NA (test code = 139 mmol/L 135-145 1508124717) K (test code = 3.9 mmol/L 3.5-5 1579754983) CL (test code = 109 mmol/L 98-108 H 2842668621) CO2 TOTAL (test code = 25 mmol/L 23-31 6846223183) AGAP (test code = 2-16 9242493364) BUN (test code = 15 mg/dL 7-23 2792559903) GLUCOSE (test code = 218 mg/dL 70-110 H 6599260374) CREATININE (test code = 0.40 mg/dL 0.5-1.04 L 0874106126) TOTAL BILI (test code = 2.0 mg/dL 0.1-1.1 H 6551753099) CALCIUM (test code = 8.5 mg/dL 8.6-10.6 L 8176228234) T PROTEIN (test code = 6.2 g/dL 6.3-8.2 L 0521698988) ALBUMIN (test code = 3.1 g/dL 3.5-5 L 9800301505) ALK PHOS (test code = 99 U/L 34-122 9957766034) ALTv (test code = 42 U/L 5-35 H 1742-6) AST(SGOT) (test code = 49 U/L 13-40 H 7205825990) eGFR Calculation mL/min/1.73m2 (Non-) (test code = 2577633256) eGFR Calculation mL/min/1.73m2 () (test code = 5539907976) SNOW (test code = SNOW) Association of [...] tests). Lab Interpretation Abnormal (test code = 07314-3) [facility]MAGN[facility]UM2020-05-01 12:35:00 Test Item Value Reference Range Interpretation Comments MAGNESIUM (test code = 0141198112) 1.6 mg/dL 1.7-2.4 L Lab Interpretation (test code = Abnormal 38145-8) [facility]PHOSPHORUS2020-05-01 12:35:00 Test Item Value Reference Range Interpretation Comments PHOSPHORUS (test code = 0996875148) 3.6 mg/dL 2.5-5 Lab Interpretation (test code = Normal 59305-5) [facility] CenterCREATINE [id number] 12:35:00 Test Item Value Reference Range Interpretation Comments CK (test code = 2298157392) 123 U/L 33-194 Lab Interpretation (test code = Normal 75613-8) [facility] CenterLIPASE2020-05-01 12:35:00 Test Item Value Reference Range Interpretation Comments LIPASE (test code = 0106320946) 141 U/L 0-220 Lab Interpretation (test code = Normal 70425-1) [facility] CenterAMYLASE2020-05-01 12:34:00 Test Item Value Reference Range Interpretation Comments LIN (test code = 8411132131) 73 U/L 35-110 Lab Interpretation (test code = Normal 94599-0) [facility] CenterPROTHROMBIN TIME / [id number] 12:07:00 Test Item Value Reference Range Interpretation Comments PROTIME PATIENT (test See_Comment H [Auto mated message] code = 5964-2) The system Status Overload generated this result transmitted ref erence range: 12.0 - 1 4.7 Seconds. The reference range was not used to int erpret this result as normal/abnormal . INR (test code = 6301-6) Nor mal INR <1.1; Warfarin Therap eutic range 2.0 to 3. 0 or 2.5 to 3.5, dep ending upon the indica tions. Lab Interpretation (test Abnormal code = 12736-7) [facility] CenterCORONAVIRUS COVID-19 [id number] 10:18:00 Test Item Value Reference Range Interpretation Comments SARS-CoV-2 (test code = Not Detected Not Detected 59585-4) SNOW (test code = SNOW) ID NOW COVID-19 Assay is an isothermal nucleic acid amplification test intended for the qualitative detection of nucleic acid from SARS-CoV-2 viral RNA in nasopharyngeal (MEDICAL RECORD ASSISTANT) specimens. It is used under Emergency Use [...] indicated. Lab Interpretation Normal (test code = 39508-3) [facility] CenterRAD, CHEST, 1 VIEW, NON [id number] 07:50:00Reason for exam:->SOBShould this be performed at the bedside?->Yes FINAL REPORT CLINICAL HISTORY: SOB TECHNIQUE: 1 view of the chest. COMPARISON: None IMPRESSION: There is pulmonary vascular congestion with prominent lung markings bilaterally. Subpulmonic pleural effusions cannot be excluded. The cardiomediastinal silhouette is magnified by technique. Signed: Franky Louis MDReport Verified Date/Time: 10/03/2018 07:50:47 Reading Location: [facility] Radiology Reading Room [id number] 07:37:00 Test Item Value Reference Range Interpretation Comments MAGNESIUM (BEAKER) (test code = 1.6 mg/dL 1.6-2.6 627) BASIC METABOLIC [id number] 07:37:00 Test Item Value Reference Range Interpretation [...] DIALYSIS PATIEN TS. Specimen slightly ictericHEPATIC FUNCTION [id number] 07:37:00 Test Item Value Reference Range Interpretation [...] 35 U/L 6-55 347) Specimen slightly ictericPROTHROMBIN TIME/[id number] 06:25:00 Test Item Value Reference Range Interpretation [...] mechanical heart valves.CBC W/PLT COUNT & AUTO [id number] 06:16:00 Test Item Value Reference Range Interpretation [...] = 3438) Received comment: User comments: Slide comments:[id number] 05:58:00 Test Item Value Reference Range Interpretation Comments MAGNESIUM (BEAKER) (test code = 1.6 mg/dL 1.6-2.6 627) BASIC METABOLIC [id number] 05:58:00 Test Item Value Reference Range Interpretation [...] DIALYSIS PATIEN TS. Specimen slightly ictericHEPATIC FUNCTION [id number] 05:58:00 Test Item Value Reference Range Interpretation [...] 39 U/L 6-55 347) Specimen slightly ictericPROTHROMBIN TIME/[id number] 05:26:00 Test Item Value Reference Range Interpretation [...] mechanical heart valves.CBC W/PLT COUNT & AUTO [id number] 05:20:00 Test Item Value Reference Range Interpretation [...] WBC 0-0 (test code = 413) VITAMIN [id number] 06:57:00 Test Item Value Reference Range Interpretation Comments VITAMIN B12 (BEAKER) (test code = 178 pg/mL 213-816 L 774) [id number] 06:57:00 Test Item Value Reference Range Interpretation Comments FERRITIN (BEAKER) (test code = 361) 21 ng/mL 5-275 FOLATE, [id number] 06:57:00 Test Item Value Reference Range Interpretation [...] 28 % 20-55 (test code = 2590) [id number] 05:59:00 Test Item Value Reference Range Interpretation Comments MAGNESIUM (BEAKER) (test code = 1.7 mg/dL 1.6-2.6 627) BASIC METABOLIC [id number] 05:59:00 Test Item Value Reference Range Interpretation [...] FOR DIALYSIS PATIEN TS. Specimen slightly ictericLIPID [id number] 05:59:00 Test Item Value Reference Range Interpretation [...] Very High >=190 Specimen slightly ictericHEPATIC FUNCTION [id number] 05:59:00 Test Item Value Reference Range Interpretation [...] = 41 U/L 6-55 347) Specimen slightly [id number] 05:59:00 Test Item Value Reference Range Interpretation Comments LIPASE (BEAKER) (test code = 749) 35 U/L 8-78 Specimen slightly ictericPROTHROMBIN TIME/[id number] 05:58:00 Test Item Value Reference Range Interpretation [...] mechanical heart valves.CBC W/PLT COUNT & AUTO [id number] 05:37:00 Test Item Value Reference Range Interpretation [...] (test code = 416) BASOPHILS ABSOLUTE COUNT ([facility]) 0.02 K/ L 0.01-0.08 (test code = 417) IMMATURE GRANULOCYTES-RELATIVE 0 % 0-1 PERCENT ([facility]) (test code = 2801) POCT-HEMOGLOBIN [id number] 06:12:00 Test Item Value Reference Range Interpretation Comments POC-HEMOGLOBIN METER 8.6 g/dL 12.0-15.0 L TESTED AT [facility] 67[address] ([facility]) (test code = [place] [address] 1539)"
[2021-06-22] MEDS ORDERED: HYDROCODONE/APAP 10/325 TAB ONE (07:01)
[2021-06-22] MEDS ORDERED: ONDANSETRON 4 MG (ODT) TAB ONE (07:01)
--- NOTE | 2021-06-22 08:39 | RAD REPORT ---
EXAM DESCRIPTION: RAD - Knee Right 3 View - 06/22/2021 8:15 am CLINICAL HISTORY: PAIN Pain and swelling COMPARISON: Knee Right 3 View dated 04/08/2021; Knee Right 3 View dated 08/28/2019 FINDINGS: Mild medial compartment space arthritic changes are present. No fracture or dislocation se en.
--- NOTE | 2021-06-22 08:41 | EDPHYS ---
Physician Documentation [facility] Name: Zenaida Goss Age: 61 yrs Sex: Female : 1960 Arrival Date: 06/22/2021 Time: 06:13 Bed 5 Private MD: ED Physician Aayush Alfaro HPI: 06/22 06:53 This 61 yrs old Female presents to ER via Wheelchair with complaints of Right pm1 Knee Pain. 06:53 The patient presents with pain. The complaints affect the right knee. pm1 06:53 Context: Patient injured her knee on 04/08/2021 when she slipped and possibly twisted pm1 her knee resulting in a patellar fracture and torn meniscus. MRI in May with Dr. Singh. Patient was scheduled for surgery on 06/19 but it was canceled because she did not get her cardiac clearance for surgery. Patient ran out of her hydrocodone for her knee pain. Took last Stoddard yesterday. She is presenting to the ER today for pain management and a request for cardiac clearance. Modifying factors: The symptoms are alleviated by hydrocodone, the symptoms are aggravated by movement, weight bearing. Associated signs and symptoms: Pertinent negatives calf tenderness, numbness, tingling. Treatment prior to arrival includes: hydrocodone yesterday. Severity of symptoms: in the emergency department the symptoms are actually worse. Historical: - Allergies: 06:30 Dilaudid; lg3 06:30 Morphine (Anaphylaxis); lg3 - Home Meds: 06:30 None [Active]; lg3 - PMHx: 06:30 Anemia; breast cancer; Cirrhosis; fatty liver; Pancreatitis; varices; lg3 - PSHx: 06:30 Appendectomy; Cholecystectomy; Lumpectomy of breast; Total abdominal hysterectomy; lg3 - Immunization history:: Adult Immunizations up to date, moderna X3. - Social history:: Smoking status: Patient denies any tobacco usage or history of. Patient/guardian denies using alcohol. ROS: 06:53 Constitutional: Negative for fever, chills, and weight loss, Cardiovascular: Negative pm1 for chest pain, palpitations, and edema, Respiratory: Negative for shortness of breath, cough, wheezing, and pleuritic chest pain. 06:53 Skin: Negative for injury, rash, and discoloration, Neuro: Negative for headache, weakness, numbness, tingling, and seizure. 06:53 MS/extremity: Positive for pain, of the right knee. 06:53 All other systems are negative. Exam: 06:53 Constitutional: This is a well developed, well nourished patient who is awake, alert, pm1 and in no acute distress. Head/Face: Normocephalic, atraumatic. 06:53 Skin: Warm, dry with normal turgor. Normal color with no rashes, no lesions, and no evidence of cellulitis. 06:53 Cardiovascular: Exam negative for acute changes, Rate: normal, Rhythm: regular, Pulses: no pulse deficits are appreciated. 06:53 Respiratory: Exam negative for acute changes, respiratory distress, shortness of breath. 06:53 Abdomen/GI: Exam negative for acute changes, Inspection: obese 06:53 Musculoskeletal/extremity: Extremities: grossly normal except: noted in the right knee: tenderness, There is no evidence of decreased ROM, deformity, erythema, Sensation intact. 06:53 Neuro: Exam negative for acute changes, Orientation: is normal, Mentation: is normal, Motor: is normal, moves all fours. Vital Signs: 06:26 BP 131 / 66; Pulse 90; Resp 18 S; Temp 98.7(O); Pulse Ox 98% on R/A; Weight 120.2 kg lg3 (R); Height 5 ft. 4 in. (162.56 cm) (R); Pain 10/10; 08:50 BP 124 / 60; Pulse 81; Resp 18 S; Pulse Ox 98% on R/A; jg9 06:26 Body Mass Index 45.49 (120.20 kg, 162.56 cm) lg3 MDM: 06:37 Patient medically screened. pm1 06:53 ED course: Patient requesting x-ray of her right knee due to concerns that her patellar pm1 fracture may have worsened. Patient reports that her knee is catching. Informed her likely that that is the torn meniscus. 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 07:11 Data reviewed: vital signs. Data interpreted: Pulse oximetry: on room air is 98 %. pm1 Interpretation: normal. 08:40 Counseling: I had a detailed discussion with the patient and/or guardian regarding: the pm1 historical points, exam findings, and any diagnostic results supporting the discharge/admit diagnosis, radiology results, the need for outpatient follow up, for definitive care, a orthopedic surgeon, to return to the emergency department if symptoms worsen or persist or if there are any questions or concerns that arise at home. 09:07 ED course: PMPaware reviewed. Patient reports tylenol #3 works well for here. pm1 06/22 06:52 Order name: Knee Right 3 View XRAY; Complete Time: 08:40 pm1 Administered Medications: 07:00 Drug: Stoddard (HYDROcodone-acetaminophen) 10 mg-325 mg 1 tabs Route: PO; kd3 08:54 Follow up: Response: Pain is decreased jg9 07:00 Drug: Zofran (Ondansetron) 4 mg Route: PO; kd3 08:55 Follow up: Response: No adverse reaction jg9 Disposition: 20:27 Co-signature as Attending Physician, Aayush Alfaro MD. mh7 Disposition Summary: 06/22/21 08:41 Discharge Ordered Location: Home pm1 Problem: new pm1 Symptoms: have improved pm1 Condition: Stable pm1 Diagnosis - Pain in right knee pm1 Followup: pm1 - With: Emergency Department - When: As needed - Reason: Worsening of condition Followup: pm1 - With: Gm Singh MD - When: 2 - 3 days - Reason: Recheck today's complaints, Continuance of care, Re-evaluation by your physician Discharge Instructions: - Discharge Summary Sheet pm1 - Acute Knee Pain, Adult pm1 Forms: - Medication Reconciliation Form pm1 - Thank You Letter pm1 - Antibiotic Education pm1 - Prescription Opioid Use pm1 Prescriptions: - Tylenol-Codeine #3 300 mg-30 mg Oral - take 2 tablet by ORAL route every 6 hours As needed; 20 tablet; Refills: 0, pm1 Product Selection Permitted - ondansetron 4 mg Oral tablet,disintegrating - place 1 tablet by TRANSLINGUAL route every 8 hours As needed; 12 tablet; pm1 Refills: 0, Product Selection Permitted Signatures: Dispatcher [employer] EDMS Nickolas Gomez NP [employer] DEAN pm1 Loyda Mariscal RN RN lg3 Aayush Alfaro MD MD mh7 Sushila Christian RN RN kd3 Estefania Escobar RN jg9 Corrections: (The following items were deleted from the chart) 06:32 06:30 Home Meds: Creon Oral; lg3 lg3 06:32 06:30 Home Meds: Lactulose Oral once daily; lg3 lg3
--- NOTE | 2021-06-22 08:41 | ER ---
Nurse's Notes [facility] Name: Zenaida Goss Age: 61 yrs Sex: Female : 1960 Arrival Date: 06/22/2021 Time: 06:13 Bed 5 Private MD: Diagnosis: Pain in right knee Presentation: 06/22 06:26 Chief complaint: Patient states: torn meniscus and fractured right knee cap diagnosed lg3 in March. ongoing pain since diagnosis. surgery was scheduled for 06/19 but cancelled due to not having cardiac clearance. cannot handle pain at this point. Coronavirus screen: Client denies travel out of the [place] in the last 14 days. At this time, the client does not indicate any symptoms associated with coronavirus-19. Ebola Screen: No symptoms or risks identified at this time. Initial Sepsis Screen: Does the patient meet any 2 criteria? No. Patient's initial sepsis screen is negative. Does the patient have a suspected source of infection? No. Patient's initial sepsis screen is negative. Risk Assessment: Do you want to hurt yourself or someone else? Patient reports no desire to harm self or others. Onset of symptoms was March 2021. 06:26 Method Of Arrival: Wheelchair lg3 06:26 Acuity: TANK 3 lg3 Triage Assessment: 06:30 General: Appears in no apparent distress. uncomfortable, Behavior is calm, cooperative. lg3 Pain: Complains of pain in right knee. EENT: No deficits noted. No signs and/or symptoms were reported regarding the EENT system. Neuro: No deficits noted. Level of Consciousness is awake, alert, obeys commands, Oriented to person, place, time, situation. Cardiovascular: No deficits noted. Denies chest pain, shortness of breath. Respiratory: No deficits noted. Airway is patent Trachea midline Respiratory effort is even, unlabored. GI: No deficits noted. No signs and/or symptoms were reported involving the gastrointestinal system. Abdomen is round non-distended. : No deficits noted. No signs and/or symptoms were reported regarding the genitourinary system. Derm: No deficits noted. No signs and/or symptoms reported regarding the dermatologic system. Skin is intact, is healthy with good turgor, Skin is dry. Musculoskeletal: Circulation, motion, and sensation intact. Capillary refill < 3 seconds, Range of motion: limited in right knee. Historical: - Allergies: 06:30 Dilaudid; lg3 06:30 Morphine (Anaphylaxis); lg3 - Home Meds: 06:30 None [Active]; lg3 - PMHx: 06:30 Anemia; breast cancer; Cirrhosis; fatty liver; Pancreatitis; varices; lg3 - PSHx: 06:30 Appendectomy; Cholecystectomy; Lumpectomy of breast; Total abdominal hysterectomy; lg3 - Immunization history:: Adult Immunizations up to date, moderna X3. - Social history:: Smoking status: Patient denies any tobacco usage or history of. Patient/guardian denies using alcohol. Screenin:34 Abuse screen: Denies threats or abuse. Denies injuries from another. Nutritional lg3 screening: No deficits noted. Tuberculosis screening: No symptoms or risk factors identified. Fall Risk None identified. Assessment: 07:50 Reassessment: Patient and/or family updated on plan of care and expected duration. Pain ap3 level reassessed. Patient is alert, oriented x 3, equal unlabored respirations, skin warm/dry/pink. patient provided with a warm blanket as requested. 08:02 Reassessment: X-Ray at the patients bedside. ap3 Vital Signs: 06:26 BP 131 / 66; Pulse 90; Resp 18 S; Temp 98.7(O); Pulse Ox 98% on R/A; Weight 120.2 kg lg3 (R); Height 5 ft. 4 in. (162.56 cm) (R); Pain 10/10; 08:50 BP 124 / 60; Pulse 81; Resp 18 S; Pulse Ox 98% on R/A; jg9 06:26 Body Mass Index 45.49 (120.20 kg, 162.56 cm) lg3 ED Course: 06:13 Patient arrived in ED. wm 06:21 Nickolas Gomez NP is PHCP. pm1 06:21 Aayush Alfaro MD is Attending Physician. pm1 06:30 Triage completed. lg3 06:30 Arm band placed on right wrist. lg3 06:37 Susan Hansen, ERIC is Primary Nurse. sm5 06:47 Patient has correct armband on for positive identification. kd3 07:45 Patient requests rest room assistance. jg9 08:00 Resting quietly. Awaiting radiology results. Awaiting disposition. jg9 08:15 Knee Right 3 View XRAY In Process Unspecified. EDMS 08:41 Gm Singh MD is Referral Physician. pm1 08:56 No provider procedures requiring assistance completed. Patient did not have IV access ap3 during this emergency room visit. Administered Medications: 07:00 Drug: Yale (HYDROcodone-acetaminophen) 10 mg-325 mg 1 tabs Route: PO; kd3 08:54 Follow up: Response: Pain is decreased jg9 07:00 Drug: Zofran (Ondansetron) 4 mg Route: PO; kd3 08:55 Follow up: Response: No adverse reaction jg9 Outcome: 08:41 Discharge ordered by . pm1 08:58 Discharged to home via wheelchair. ap3 08:58 Condition: good 08:58 Discharge instructions given to patient, Instructed on discharge instructions, follow up and referral plans. Demonstrated understanding of instructions, follow-up care. 08:59 Patient left the ED. ap3 Signatures: Dispatcher [employer] EDLA Nickolas Gomez, SCHOOL BUS DISPATCHER SCHOOL BUS DISPATCHER pm1 Rere Vera RN RN ap3 Loyda Mariscal, RN RN lg3 Deysi Mathew Kyli, RN RN kd3 Susan Hansen RN RN sm5 Estefania Escobar RN RN jg9 Corrections: (The following items were deleted from the chart) 06:32 06:30 Home Meds: Creon Oral; lg3 lg3 06:32 06:30 Home Meds: Lactulose Oral once daily; lg3 lg3
[2021-06-22 09:03] VITALS: TEMP 98.7; O2SAT 98
[2021-06-22 09:05] VITALS: BP 124/60
== END 2021-06-22 08:59 | disposition home or self-care (01) ==
LOC: ER 06:09
DX: S82.001S Unspecified fracture of right patella, sequela (principal)
CPT/HCPCS: 99283

== ENCOUNTER 2021-07-05 14:04 | Emergency (ER) | payer OTHER ==
--- OUTSIDE RECORDS SUMMARY | 2021-07-05 14:13 | XMS REPORT | Continuity of Care Document ---
:1960 Author Organization [facility] t Address [address] [place] [address] Dr. [address] [place] [address] Care Team Providers Name Role Phone Sami HERNANDEZ Primary Care Physician Unavailable Ruth Attending Clinician Unavailable Harley Attending Clinician Unavailable [facility] Attending Clinician Unavailable José Manuel GREEN Attending Clinician Unavailable Beatriz LINTING MACHINE OPERATOR, F Attending Clinician Nancy REYES Attending [...] Number Effective Date Expiration Date Deshawn blancas [facility] [id number] 2019 CHOICE 00:00:00 Problems Condition Condition Condition [...] Available [facility] Social History Social Habit Start Date Stop Date Quantity Comments Source Exposure to Not sure [facility] SARS-CoV-2 [facility] (event) Branch Alcohol intake 2021-04-02 2021-04-02 Ex-drinker [facility] 00:00:00 00:00:00 (finding) [facility] Tobacco use and 2016-08-07 2016-08-07 Never used Universit y of exposure 00:00:00 00:00:00 [facility] Sex [birth year] At [birth year] Universit y of 00:00:00 00:00:00 [facility] Smoking Status Start Date Stop Date Source Never smoker [facility] Medications Ordered Filled Start Stop Current [...] 04/02/21 at 1445, VERN ondansetron 2020-04 Yes [id number] 4mg Take 1 Univers 4 mg 2-23 tablet by ity of disintegrat 00:00: mouth [place] ing tablet 00 every 8 Medica l (eight) Branch hours as needed for Nausea and Vomiting (N/V). ondansetron 2020-04 Yes [id number] 4mg Take 1 Univers 4 mg 2-23 tablet by ity of disintegrat 00:00: mouth [place] ing tablet 00 every 8 Medica l (eight) Branch hours as needed for Nausea and Vomiting (N/V). cholecalcif 2020- No [id number] 1999U Take 2 Univers nuno, 6-26 07-27 tablets by ity of vitamin D3, 00:00: 04:59 [place] 25 [place] 00 :00 daily for Medical (1,000 30 days. Branch unit) tablet cyanocobala 2020- No [id number] 1000ug inject 1 Univers min 1,000 6-26 07-27 mL under ity o f mcg/mL 00:00: 04:59 the skin [place] injection 00 :00 every 24 Medica l (twenty-fo Branch ur) hours for 30 days. KCL 20 mEq 2020- No [id number] 20meq Take 1 Univers tablet 6-26 07-27 tablet by ity of 00:00: 04:59 mouth [place] 00 :00 daily for Medical 30 days. Branch cholecalcif 2020- No [id number] 1999U Take 2 Univers nuno, 6-26 07-27 tablets by ity of vitamin D3, 00:00: 04:59 [place] 25 mcg 00 :00 daily for Medical (1,000 30 days. Branch unit) tablet cyanocobala 2020- No [id number] 1000ug inject 1 Univers min 1,000 6-26 07-27 mL under ity o f mcg/mL 00:00: 04:59 the skin [place] injection 00 :00 every 24 Medica l (twenty-fo Branch ur) hours for 30 days. KCL 20 mEq 2020- No [id number] 20meq Take 1 Univers tablet 6 07-27 [...] unresponsi ve to Ondansetro n proMETHazin Yes [id number] 12.5mg Take 1 Univers e 12.5 mg 6-25 tablet by ity o f tablet 00:00: mouth [place] 00 every 6 Medical (six) Branch hours as needed for Nausea and Vomiting (N/V) or N/V unresponsi ve to Ondansetro n. proMETHazin Yes [id number] 12.5mg Take 1 Univers e 12.5 mg 6-25 tablet by ity o f tablet 00:00: mouth [place] 00 every 6 Medical (six) Branch hours as needed for Nausea and Vomiting (N/V) or N/V unresponsi ve to Ondansetro n. proMETHazin Yes [id number] 12.5mg Take 1 Univers e 12.5 mg 6-25 tablet by ity o f tablet 00:00: mouth [place] 00 every 6 Medical (six) Branch hours as needed for Nausea and Vomiting (N/V) or N/V unresponsi ve to Ondansetro n. proMETHazin Yes [id number] 12.5mg Take 1 Univers e 12.5 mg 6-25 tablet by ity o f tablet 00:00: mouth [place] 00 every 6 Medical (six) Branch hours as needed for Nausea and Vomiting (N/V) or N/V unresponsi ve to Ondansetro n. proMETHazin Yes [id number] 12.5mg Take 1 Univers e 12.5 mg 6-25 tablet by ity o f tablet 00:00: mouth [place] 00 every 6 Medical (six) Branch hours as needed for Nausea and Vomiting (N/V) or N/V unresponsi ve to Ondansetro n. proMETHazin Yes [id number] 12.5mg Take 1 Univers e 12.5 mg 6-25 tablet by ity o f tablet 00:00: mouth [place] 00 every 6 Medical (six) Branch hours as needed for Nausea and Vomiting (N/V) or N/V unresponsi ve to Ondansetro n. proMETHazin Yes [id number] 12.5mg Take 1 Univers e 12.5 mg 6-25 tablet by ity o f tablet 00:00: mouth [place] 00 every 6 Medical (six) Branch hours as needed for Nausea and Vomiting (N/V) or N/V unresponsi ve to Ondansetro n. furosemide 2020- No [id number] 40mg Take 1 Univers 40 mg 6-25 07-26 tablet by ity of tablet 00:00: 04:59 mouth [place] 00 :00 every Medical morning Branch and evening for 30 days. lipase-prot 2020- No [id number] 2{capsu Take 2 Univers ease-amylas 6-25 07-26 le} capsules ity of e 00:00: 04:59 by mouth 3 [place] 12,000-38,0 00 :00 (three) Medic al 00 -60,000 times Branch unit daily with capsule meals for 30 days. lactobacill 2020- No [id number] .5mg Take 1 Univers us 6-25 07-26 tablet by ity of acidophilus 00:00: 04:59 mouth 2 [place] 00 :00 (two) Medical times Branch daily for 30 days. furosemide 2020- No [id number] 40mg Take 1 Univers 40 mg 6-25 07-26 tablet by ity of tablet 00:00: 04:59 mouth [place] 00 :00 every Medical morning Branch and evening for 30 days. lipase-prot 2020- No [id number] 2{capsu Take 2 Univers ease-amylas 6-25 07-26 le} capsules ity of e 00:00: 04:59 by mouth 3 [place] 12,000-38,0 00 :00 (three) Medic al 00 -60,000 times Branch unit daily with capsule meals for 30 days. lactobacill 2020- No [id number] .5mg Take 1 Univers us 6-25 07-26 tablet by ity of acidophilus 00:00: 04:59 mouth 2 [place] 00 :00 (two) Medical times Branch daily for 30 days. vancomycin 2020- No [id number] 125mg Take 1 Univers 125 mg 6-25 07-06 capsule by ity of capsule 00:00: 04:59 mouth 4 [place] 00 :00 (four) Medical times Branch daily for 10 days. vancomycin 2020- No [id number] 125mg Take 1 Univers 125 mg 6-25 [...] Indication s: acute pain cephALEXin 2020- No [id number] 500mg Take 1 Univers 500 mg 10-03 capsule by ity of capsule 00:00: 04:59 mouth 4 [place] 00 :00 (four) Medical times Branch daily for 5 days. cephALEXin 2020- No [id number] 500mg Take 1 Univers 500 mg 10-03 [...] QHSPRN, [place] mg 57 Starting Medical [facility] Branch 09/29/20 at 2251, Until Discontinu [...] 2,000 Units First dose Br anch on [facility] 09/29/20 at 1500, Until Discontinu ed, Routine lactobacill Yes .5mg 0.5 mg, Uni vers us 09-29 Oral, BID, ity of acidophilus 14:15: First dose [place] tablet 0.5 00 on [facility] Medical mg 09/29/20 at Branch 0915, Until Discontinu ed, Routine KCL Yes 20meq 20 mEq, Univers (KLOR-CON 09-29 Oral, ity of M20) tablet 14:00: DAILY, [place] 20 mEq 00 First dose Medical (after Branch last reorder) on [facility] 09/29/20 at 0900, Until Discontinu ed, Routine lipase-prot 0 Yes 2{capsu 2 capsule, Univers ease-amylas 09-29 le} Oral, TID ity of e (CREON) 08:45: MEALS, [place] 12,000-38,0 00 First dose Me dical 00 -60,000 on [facility] Branch unit 09/29/20 at capsule 2 [...] :00 s, ONCE, 1 Medic al dose, [facility] 09/29/20 at 0245, Routine FENTanyl PF 2020- No 50ug 50 mcg, Un marline (SUBLIMAZE 09-29 Slow IV ity o f (PF)) 07:30: 06:27 Push, [place] injection 00 :00 ONCE, 1 Medical 50 mcg dose, [facility] 09/29/20 at 0230, Routine piperacilli 2020- No 3.375g 3.375 g, Univers n-tazobacta 09-29 IV ity of m (ZOSYN) 07:30: 07:00 Piggyback, [place] 3.375 g in 00 :00 ONCE, 1 Medica l NaCl 0.9% dose, [facility] Branc h (NS) 100 mL 09/29/20 [...] injection 4 17 Starting Medi molly mg [facility] Branch 09/29/20 at 0142, Until Discontinu ed, Routine, Nausea and Vomiting (N/V) iopamidol 2020- No [id number] 100mL 100 mL, Univers (ISOVUE 09-29 Intravenou [...] for Pain (scale 4-6). acetaminoph 2020-0 Yes [id number] 1{tbl} Take 1 Univers en-codeine 5-02 tablet by ity of 300-30 mg 00:00: mouth [place] tablet 00 every 4 Medical (four) Branch hours as needed for Pain (scale 4-6). acetaminoph 2020-0 Yes [id number] 1{tbl} Take 1 Univers en-codeine 5-02 tablet by ity of 300-30 mg 00:00: mouth [place] tablet 00 every 4 Medical (four) Branch hours as needed for Pain (scale 4-6). acetaminoph 2020-0 Yes [id number] 1{tbl} Take 1 Univers en-codeine 5-02 tablet by ity of 300-30 mg 00:00: mouth [place] tablet 00 every 4 Medical (four) Branch hours as needed for Pain (scale 4-6). lactulose 2019-0 2020- No [id number] 30mL Take 30 mL Univers 10 gram/15 5- 06-02 by mouth 2 it y of mL oral 00:00: 04:59 (two) [place] solution 00 :00 times Medical daily for Branch 30 days. pantoprazol 2019-0 2020- No [id number] 40mg Take 1 Univers e 40 mg EC 5- 06- tablet by ity of tablet 00:00: 04:59 mouth [place] 00 :00 daily for Medical 30 days. Branch lactulose 2019-0 2020- No [id number] 30mL Take 30 mL Univers 10 gram/15 5-02 06-02 by mouth 2 it y of mL oral 00:00: 04:59 (two) [place] solution 00 :00 times Medical daily for Branch 30 days. pantoprazol 2019-0 2020- No [id number] 40mg Take 1 Univers e 40 mg EC 5-02 06-02 tablet by ity of tablet 00:00: 04:59 mouth [place] 00 :00 daily for Medical 30 days. Branch propranolol 2019-0 2020- No [id number] 10mg Take 1 Univers 10 mg 5- [...] n Singh defined [facility] Amoxicillin Amoxicillin Yes Gm not [facility] -Pot Singh defined [facility] Clavulanate Clavulanate [facility] Immunizations Ordered Filled Immunization Date Status Comments [facility] e Immunization Name Name Pneumococcal 2020-10-03 [...] Completed Unive rsity of MODERNA VACCINE 00:00:00 [facility] ical Branch SARS-COV-2 COVID-19 2020-08-08 Completed Unive rsity of MODERNA VACCINE 00:00:00 [place] [facility] ical Branch SARS-COV-2 COVID-19 2020-08-08 Completed Unive rsity of MODERNA VACCINE 00:00:00 [place] [facility] ical Branch SARS-COV-2 COVID-19 2020-08-08 Completed Unive rsity of MODERNA VACCINE 00:00:00 [place] [facility] ical Branch SARS-COV-2 COVID-19 2020-08-08 Completed Unive rsity of MODERNA VACCINE 00:00:00 [place] Med ical Branch SARS-COV-2 COVID-19 2020-08-08 Completed Unive rsity of MODERNA VACCINE 00:00:00 [facility] ical Branch SARS-COV-2 COVID-19 2020-08-08 Completed Unive rsity of MODERNA VACCINE 00:00:00 [facility] SARS-COV-2 COVID-19 2020-08-08 Completed Unive rsity of MODERNA VACCINE 00:00:00 [facility] SARS-COV-2 COVID-19 2020-07-11 Completed Unive rsity of MODERNA VACCINE 00:00:00 [facility] SARS-COV-2 COVID-19 2020-07-11 Completed Unive rsity of MODERNA VACCINE 00:00:00 [facility] SARS-COV-2 COVID-19 2020-07-11 Completed Unive rsity of MODERNA VACCINE 00:00:00 [facility] SARS-COV-2 COVID-19 2020-07-11 Completed Unive rsity of MODERNA VACCINE 00:00:00 [facility] SARS-COV-2 COVID-19 2020-07-11 Completed Unive rsity of MODERNA VACCINE 00:00:00 [facility] SARS-COV-2 COVID-19 2020-07-11 Completed Unive rsity of MODERNA VACCINE 00:00:00 [facility] SARS-COV-2 COVID-19 2020-07-11 Completed Unive rsity of MODERNA VACCINE 00:00:00 [facility] SARS-COV-2 COVID-19 2020-07-11 Completed Unive rsity of MODERNA VACCINE 00:00:00 [facility] Influenza Virus 2019-08-11 Completed Universit y of Vaccine Quad .5 mL 00:00:00 [facility] IM 6+ MO Branch Influenza Virus [...] y of Vaccine [place] .5 mL 00:00:00 [facility] IM 6+ MO Branch Vital Signs Vital Name Observation Time Observation Value Comments Source Systolic blood 2021-04-02 18:55:00 138 mm[Hg] Univer sity of pressure [facility] Diastolic blood 2021-04-02 18:55:00 104 mm[Hg] Unive rsity of pressure [facility] Heart rate 2021-04-02 18:55:00 74 /min Universi ty [facility] Body temperature 2021-04-02 18:55:00 36.78 Sand[place] [facility] Respiratory rate 2021-04-02 18:55:00 18 /min [facility] Body weight 2021-04-02 18:55:00 [facility] BMI 2021-04-02 18:55:00 46.35 kg/m2 [facility] Oxygen saturation in 2021-04-02 18:55:00 97 /min [facility] Arterial blood by [facility] Pulse oximetry Branch Systolic blood 2020-10-03 17:23:00 132 mm[Hg] Univer sity of pressure [facility] Diastolic blood 2020-10-03 17:23:00 56 mm[Hg] Unive rsity of pressure [facility] Heart rate 2020-10-03 17:23:00 88 /min Universi ty [facility] Body temperature 2020-10-03 17:23:00 36.94 Sandee [facility] Respiratory rate 2020-10-03 17:23:00 18 /min [facility] Oxygen saturation in 2020-10-03 17:23:00 94 /min University of Arterial blood by [facility] Pulse oximetry Branch Body weight [...] 91 /min University of Arterial blood by [facility] Pulse oximetry Branch Systolic blood 2019-08-11 20:04:00 107 mm[Hg] Univer sity of [facility] Body height 2019-08-10 08:01:00 162.6 cm Universi [...] 91 /min University of Arterial blood by [facility] Pulse oximetry Branch Systolic blood 2019-08-11 20:04:00 107 mm[Hg] Univer sity of pressure [place] [facility] [place] Body height 2019-08-10 08:01:00 162.6 cm Universi ty of [place] [facility] Body weight 2019-08-10 08:01:00 119.296 kg Universi ty of [place] [facility] BMI 2019-08-10 08:01:00 45.14 kg/m2 [facility] Procedures Procedure Date / Time Performing Clinician Source Performed XR KNEE 3 VW LEFT 2021-04-02 20:10:39 Kinsey Green [facility] CONSENT/REFUSAL FOR 2021-04-02 17:59:31 Doctor Unassigned, [facility] DIAGNOSIS AND TREATMENT [place] [facility] [place] ASSIGNMENT OF BENEFITS 2021-03-10 20:29:46 Doctor Unassigned, [facility] [place] [facility] PHOSPHORUS 2020-10-03 08:52:00 Brenda Teixeira [facility] MAGNESIUM 2020-10-03 08:52:00 Puneet [facility] COMP. METABOLIC PANEL 2020-10-03 08:52:00 Puneet [facility] ([id number]) [facility] CBC WITH DIFF 2020-10-03 08:52:00 Kim Teixeiraherine [facility] COMP. METABOLIC PANEL 2020-10-02 08:39:00 Kim Teixeiraherine [facility] ([id number]) [facility] CBC WITH DIFF 2020-10-02 08:39:00 Brenda Teixeira [facility] US DUPLEX VENOUS ARM LEFT 2020-10-01 16:22:58 Brenda Teixeira [facility] - BY VASCULAR LAB [facility] COMP. METABOLIC PANEL 2020-10-01 07:45:00 Tomasa Escamilla [facility] ([id number]) [facility] CBC WITH DIFF 2020-10-01 07:45:00 [facility] TROPONIN I 2020-09-30 10:56:00 Marco Levy [facility] COMP. METABOLIC PANEL 2020-09-30 10:56:00 Millie sharad [facility] ([id number]) [facility] CBC WITH DIFF 2020-09-30 10:56:00 Shaina Brito [facility] N-TERMINAL PRO-BNP 2020-09-30 08:05:[address] [facility] OCCULT (GUAIAC) BLOOD 2020-09-30 02:10:00 Shaina Brito [facility] FECAL LEUKOCYTES 2020-09-30 02:10:00 Shaina Brito [facility] CLOSTRIDIUM DIFFICILE 2020-09-30 02:10:[address] [facility] FECAL PATHOGENS BY PCR 2020-09-30 02:10:00 Shaina Brito [facility] POCT GLUCOSE (AUTOMATED) 2020-09-30 00:35:00 Rene Evans [facility] BASIC METABOLIC PANEL 2020-09-29 21:11:00 Shaina Brito [facility] (NA, K, CL, CO2, GLUCOSE, Medica l Branch BUN, CREATININE, CA) HEMOGLOBIN 2020-09-29 21:11:00 [facility] Tomasa [facility] TRANSTHORACIC ECHO (TTE) 2020-09-29 16:03:00 Marco Levy [facility] HB ECG ROUTINE & RHYTHM 2020-09-29 11:18:58 Shaina Brito [facility] OSMOLALITY URINE 2020-09-29 08:56:00 Millie sharad [facility] URINE CULTURE 2020-09-29 08:56:00 Millie sharad [facility] SODIUM, URINE RANDOM 2020-09-29 08:56:00 Shaina Brito [facility] PROTEIN CREAT RATIO URINE 2020-09-29 08:56:00 Shaina Brito [facility] BLOOD CULTURE SCREEN 2020-09-29 08:32:00 Shaina Brito [facility] LACTIC ACID WHOLE BLOOD 2020-09-29 08:32:00 Shaina Brito [facility] VITAMIN B12, LEVEL 2020-09-29 08:31:[address] [facility] C-REACTIVE PROTEIN 2020-09-29 08:31:[address] [facility] IRON PANEL 2020-09-29 08:31:00 Shaina Brito [facility] SEDIMENTATION RATE 2020-09-29 08:31:[address] [facility] DIFF CONSULT 2020-09-29 08:31:00 Millie [facility] Branch CBC WITH DIFF 2020-09-29 08:31:00 Millie sharad [facility] PROTHROMBIN TIME / INR 2020-09-29 08:31:00 Shaina Brito [facility] N-TERMINAL PRO-BNP 2020-09-29 08:31:[address] [facility] VITAMIN D, 25-OH 2020-09-29 08:31:00 Millie [facility] PROCALCITONIN 2020-09-29 08:31:00 Millie [facility] COVID-19 (ID NOW RAPID 2020-09-29 05:10:00 Rene Evans [facility] TESTING) Medical Branch LAB ONLY COVID 2020-09-29 05:10:00 Rene Evans [facility] INTERPRETATION [facility] CT ABDOMEN PELVIS W 2020-09-29 04:56:31 Rene Evans [facility] CONTRAST [facility] Branch URINALYSIS 2020-09-29 04:19:00 Rene Evans [facility] PHOSPHORUS 2020-09-29 03:54:00 Millie sharad [facility] CREATINE KINASE 2020-09-29 03:54:00 Millie [facility] URIC ACID 2020-09-29 03:54:00 Millie [facility] LIPASE 2020-09-29 03:54:00 Rene Evans [facility] MAGNESIUM 2020-09-29 03:54:00 Millie [facility] FERRITIN SERUM 2020-09-29 03:54:00 Millie [facility] TROPONIN I 2020-09-29 03:54:00 Marco Levy [facility] Medical [place] THYROID STIMULATING 2020-09-29 03:54:00 Shaina Brito [facility] HORMONE [facility] Branch COMP. METABOLIC PANEL 2020-09-29 03:54:00 Rene Evans [facility] ([id number]) Medical [place] LIPID PANEL ([id number])(TOTAL 2020-09-29 03:54:00 Shaina Brito [facility] CHOLESTEROL, [facility] TRIGLYCERIDES, HDL) CBC WITH DIFF 2020-09-29 03:54:00 Rene Evans [facility] GLYCOSYLATED HEMOGLOBIN 2020-09-29 03:54:00 Millie sharad [facility] (A1C) [facility] N-TERMINAL PRO-BNP 2020-09-29 03:54:[address] [facility] CONSENT/REFUSAL FOR 2020-09-29 03:18:51 Doctor Unassigned, [facility] DIAGNOSIS AND TREATMENT [place] [facility] NOTICE OF PRIVACY 2020-09-29 03:18:30 Doctor Unassigned, [facility] PRACTICES [facility] [place] CT ABDOMEN PELVIS W 2019-08-11 14:50:46 Corby Ca [facility] CONTRAST [facility] Branch COMP. METABOLIC PANEL 2019-08-11 08:00:00 Shaina Brito [facility] ([id number]) [facility] CBC WITH DIFFERENTIAL 2019-08-11 08:00:00 Shaina Brito [facility] CBC WITH DIFFERENTIAL 2019-08-11 08:00:00 Shaina Brito [facility] XR SMALL BOWEL SERIES 2019-08-10 21:18:47 Valente Piña [facility] XR ABDOMEN 1 VW 2019-08-10 11:52:39 Millie sharad [facility] PHOSPHORUS 2019-08-10 11:11:00 Millie [facility] CREATINE KINASE 2019-08-10 11:11:00 Millie sharad [facility] AMYLASE 2019-08-10 11:11:00 Millie [facility] LIPASE 2019-08-10 11:11:00 Shaina Brito [place] [facility] MAGNESIUM 2019-08-10 11:11:00 Shaina Brito [facility] TEST, SERUM 2019-08-10 11:11:00 Shaina Brito [facility] THYROID STIMULATING 2019-08-10 11:11:00 Shaina Brito [facility] HORMONE [facility] Branch COMP. METABOLIC PANEL 2019-08-10 11:11:00 Shaina Brito [facility] ([id number]) [facility] LIPID PANEL ([id number])(TOTAL 2019-08-10 11:11:00 Shaina Brito [facility] CHOLESTEROL, [facility] TRIGLYCERIDES, HDL) SEDIMENTATION RATE 2019-08-10 11:11:[address] [facility] CBC WITH DIFFERENTIAL 2019-08-10 11:11:00 Shaina Brito [facility] GLYCOSYLATED HEMOGLOBIN 2019-08-10 11:11:00 Shaina Brito [facility] (A1C) [facility] PROTHROMBIN TIME / INR 2019-08-10 11:11:00 Shaina Brito [facility] CORONAVIRUS COVID-19 2019-08-10 09:04:00 Shaina Brito [facility] TESTING [facility] Encounters Start End Encounter Admission Attending Care Care Encounter Source Date/Time Date/Time Type Type Clinicians Facility Department ID 2021-05-06 [id number] 14[facility]30[facility] a, Madhu [facility] 2021-05-06 Outpatient Kattegummul STLMLC [facility] [id number] 14:26:04 a, Madhu [id number] [facility] 2021-05-06 Outpatient Kattegummul [facility]LMLC [facility] [id number] 14:05:28 a, Madhu [id number] [facility] 2021-05-06 Outpatient [facility] [facility] [id number] 13:37:29 a, Madhu [id number] [facility] 2021-05-06 Outpatient Amite[facility] 13:36:02 Annalise [id number] [facility] 2021-05-06 Outpatient Harley[facility] 11:25:36 Annalise [id number] [facility] 2021-02-09 Emergency [facility] [id number] Univers 02:25:27 ity [facility] 2021-04-07 2021-04-07 Letter Orthopedic [facility] [id number] Univers 00:00:00 00:00:00 (Out) Clinic SPECIALTY [id number] ity of [facility] [id number] [facility] AT [id number] Mi mariacarol [address] 2021-04-02 2021-04-02 Emergency X [facility] E[facility] [id number] Univers 12:58:00 15:25:00 [facility] 2021-04-02 2021-04-02 Emergency [facility] [id number] Univers 12:58:00 15:25:00 Kinsey WHITT [id number] ity [facility] [id number] [place] [id number] [facility] 084 [place] 2021-03-11 2021-03-11 Telephone VERONIQUE Cruz [id number] Univers 00:00:00 00:00:00 Frances SÁNCHEZ [id number] it y of [facility] [id number] Quang [id number] [facility] 019 Branch 2021-03-10 2021-03-10 Outpatient R NETTIE [facility] [id number] Univers 14:45:00 14:51:40 LEXIE ity [facility] 2021-03-10 2021-03-10 Outpatient R [facility] [id number] Univers 14:45:00 14:45:00 [id number] ity [facility] 2021-03-10 2021-03-10 Laboratory Only, Ang Db Test [facility] [id number] Univers 14:29:53 14:44:53 Only Unknown, Attending HEALTH [id number] ity of PERI [id number] Quang as MARINA?BLEA [phone] Mi dical [address] MEDICAL OFFICE BUILDING 2021-03-10 2021-03-10 Orders Doctor VERONIQUE 1.2.840.114 [id number] Univers 00:00:00 00:00:00 Only Unassigned, GONZALO 350.1.13.10 ity of [place] [facility] 4.2.7.2.686 Quang as [phone] [facility] [address] 2021-02-18 2021-02-20 Inpatient JAIME, [facility] [id number] 623 [place] 00:00:00 00:00:00 CHERI 379 Method i 2021-02-03 2021-02-04 Emergency X [facility] ERT [id number] Univers 21:10:00 03:21:00 GARTH ity of [facility] 2020-10-21 2020-10-27 Inpatient SYLVIA, [facility] 064 [id number] 8331 [place] 00:00:00 00:00:00 ROBERTH 980 Method i 2020-10-06 2020-10-06 Transition TaylorYelenali 1.2.840.114 [id number] Univers 00:00:00 00:00:00 of Care Madiha Sotelo 350.1.13.10 i [place] [phone] [facility] 403 [address] 2020-09-28 2020-10-03 [facility] Rene Evans [facility] 1.2.840. 114 [id number] Univers 22:23:00 13:05:00 Encounter Shaina Brito 350.1.13.10 [place] [phone] [facility] 081 [address] 2020-09-28 2020-09-28 Orders Doctor PIPER 1.2.840.114 [id number] Univers 00:00:00 00:00:00 Only Unassigned, GONZALO 350.1.13.10 [facility] 4.2.7.2.[facility] Quang as [phone] [address] 2020-09-09 2020-09-12 Inpatient VIKTOR BILLINGS [facility] [id number] 73766 [place] 00:00:00 00:00:00 462 Method i 2020-08-08 2020-08-08 Outpatient Sami GERMAN [facility] [id number] Univers 15:40:00 15:40:00 TERRI ity [facility] 2020-07-11 2020-07-11 Outpatient [facility] [id number] Univers 15:40:00 15:40:00 ity [facility] 2020-06-09 2020-06-22 Inpatient VIKTOR BILLINGS [facility] 064 [id number] 7[address]96 [place] 00:00:00 00:00:00 836 Method i 2020-03-19 2020-03-23 Inpatient DINAKAR, [facility] 985 [id number] 848 [place] 00:00:00 00:00:00 CHERI 742 Method i 2020-03-14 2020-03-18 Inpatient DINAKAR, [facility] [id number] 585 [place] 00:00:00 00:00:00 CHERI 157 Method i 2020-02-13 2020-02-13 Laboratory Lab, [facility] 1.2.840.114 [id number] 10:22:10 10:42:10 Only Fam Pob I Health 350.1.13.10 [place] 4.2.7.2.686 Professio [phone] nal [facility] Office Building [facility] 2020-02-13 2020-02-13 Laboratory Lab, [facility] Fam Pob I [facility] 1.2. 840.114 [id number] [facility] 10:22:10 10:42:10 Only Dulce [facility] 350.1.13.10 ity of [place] 4.2.7.2.686 Quang as Professio [phone] Mi dical [address] Office Building One 2019-09-28 2019-09-28 Outpatient [facility] [id number] [facility] 09:00:00 09:00:00 [facility] 2019-09-18 2019-09-18 Outpatient Brazluciana Lopez [id number] 09:30:00 09:30:00 t [facility] 2019-08-14 2019-08-14 Transition Jocelyne Alexandra 1.2.840.114 [id number] 00:00:00 00:00:00 of Care Jovanny Souza [place] 350.1.13.10 [place] 4.2.7.2.686 [phone] 403 2019-08-14 2019-08-14 Transition Jocelyne Alexandra 1.2.840.114 [id number] Univers 00:00:00 00:00:00 of Care Jovanny Souza [place] 350.1.13.10 ity of [place] 4.2.7.2.686 [place] [phone] [place] [address] Branch 2019-08-10 2019-08-11 [facility] 1.2.928.716 [id number] 4528 02:55:00 16:09:00 Encounter Shaina Whitt 350.1.13.10 [place] 4.2.7.2.686 [place] [phone] [facility] 2019-08-10 2019-08-11 Inpatient U [facility] SHRUTI [id number] Univers 02:55:00 16:09:00 [facility] 2019-08-10 2019-08-11 [facility] 1.2.618.746 [id number] Univers 02:55:00 16:09:00 Encounter Shaina [place] 350.1.13.10 ity [place] [phone] [address] Results Test Description Test Time Test Comments Results Result Comments Source MAGNESIUM 2020-10-03 09:34:08 Test Item Value Reference Range Interpretation Comme nts MAGNESIUM (test code = 1089676210) 1.4 mg/dL 1.7-2.4 L Lab Interpretation (test code = 04406-1) Abnormal [facility] (43305)2020-10-03 09:33:48 Test Item Value Reference Range Interpretation Comments NA (test code = 136 mmol/L 135-145 6901624335) K (test code = 3.3 mmol/L 3.5-5.0 L 7669977258) CL (test code = 100 mmol/L 98-108 5175142730) CO2 TOTAL (test code = 33 mmol/L 23-31 H 2230166121) AGAP (test code = 2-16 1208225524) BUN (test code = 3 mg/dL 7-23 L 6052518507) GLUCOSE (test code = 95 mg/dL 70-110 2288258578) CREATININE (test code = 0.47 mg/dL 0.50-1.04 L 3166563270) TOTAL BILI (test code = 1.5 mg/dL 0.1-1.1 H 6129627147) CALCIUM (test code = 8.1 mg/dL 8.6-10.6 L 3142128692) T PROTEIN (test code = 5.9 g/dL 6.3-8.2 L 1992195428) ALBUMIN (test code = 2.9 g/dL 3.5-5.0 L 4837976760) ALK PHOS (test code = 115 U/L 34-122 5195849937) ALTv (test code = 24 U/L 5-35 1742-6) AST(SGOT) (test code = 35 U/L 13-40 9984085910) eGFR (test code = mL/min/1.73m2 4136215944) SNOW (test code = SNOW) Association of [...] tests). Lab Interpretation Abnormal (test code = 90352-3) [facility] 09:33:28 Test Item Value Reference Range Interpretation Comments PHOSPHORUS (test code = 9968578211) 2.8 mg/dL 2.5-5.0 Lab Interpretation (test code = Normal 14257-4) [facility] WITH [id number] 09:31:46 Test Item Value Reference Range Interpretation [...] (test code = 53.8 fL 39.0-49.9 H 13822-1) RDW-CV (test code = 19.9 % 12.0-15.5 H 788-0) PLT (test code = See_Comment L [Automated 777-3) message] The sy stem which generated this result transmitted reference range : 166 - 358 10*3/ ?L. The reference r davi was not used to interpret this result as normal/abnormal . MPV (test code = 10.9 fL 9.5-12.9 61551-3) IPF % (test code = 3.6 % 1.3-7.7 Platelet count 0579970895) measured by fluorescence method. NRBC/100 WBC (test See_Comment [Automat ed code = 8979867129) message] The system which generated this result transmitted reference range : 0.0 - 10.0 /100 WBCs. The refer ence range was not u sed to interpret th is result as normal/abnormal . NRBC x10^3 (test code See_Comment [Auto mated = 4661642941) message] The s ystem which generated this result transmitted reference range : 10*3/?L. The reference range was not used to interpret this result as normal/abnormal . GRAN MAT (NEUT) % 68.1 % (test code = 770-8) IMM GRAN % (test code 1.10 % = 6265528555) LYMPH % (test code = 15.5 % 736-9) MONO % (test code = 11.3 % 5905-5) EOS % (test code = 3.4 % 713-8) BASO % (test code = 0.6 % 706-2) GRAN MAT x10^3(ANC) 2.42 10*3/uL 1.88-7.09 (test code = 9460731141) IMM GRAN x10^3 (test 0.04 10*3/uL 0.00-0.06 code = 0285772514) LYMPH x10^3 (test code 0.55 10*3/uL 1.32-3.29 L = 731-0) MONO x10^3 (test code 0.40 10*3/uL 0.33-0.92 = 742-7) EOS x10^3 (test code = 0.12 10*3/uL 0.03-0.39 711-2) BASO x10^3 (test code <0.03 0.01-0.07 = 704-7) Lab Interpretation Abnormal (test code = 46823-2) [facility] WITH [id number] 10:47:09 Test Item Value Reference Range Interpretation [...] (test code = 52.2 fL 39.0-49.9 H 75328-6) RDW-CV (test code = 18.6 % 12.0-15.5 H 788-0) PLT (test code = See_Comment L [Automated 777-3) message] The sy stem which generated this result transmitted reference range : 166 - 358 10*3/ ?L. The reference r davi was not used to interpret this result as normal/abnormal . MPV (test code = 10.1 fL 9.5-12.9 77223-8) IPF % (test code = 3.2 % 1.3-7.7 Platelet count 3529547523) measured by fluorescence method. NRBC/100 WBC (test See_Comment [Automat ed code = 2806933332) message] The system which generated this result transmitted reference range : 0.0 - 10.0 /100 WBCs. The refer ence range was not u sed to interpret th is result as normal/abnormal . NRBC x10^3 (test code See_Comment [Auto mated = 3857648836) message] The s ystem which generated this result transmitted reference range : 10*3/?L. The reference range was not used to interpret this result as normal/abnormal . GRAN MAT (NEUT) % 65.1 % (test code = 770-8) IMM GRAN % (test code 1.20 % = 8587928753) LYMPH % (test code = 16.9 % 736-9) MONO % (test code = 11.5 % 5905-5) EOS % (test code = 4.5 % 713-8) BASO % (test code = 0.8 % 706-2) GRAN MAT x10^3(ANC) 1.58 10*3/uL 1.88-7.09 L (test code = 1782606761) IMM GRAN x10^3 (test 0.03 10*3/uL 0.00-0.06 code = 7247844934) LYMPH x10^3 (test code 0.41 10*3/uL 1.32-3.29 L = 731-0) MONO x10^3 (test code 0.28 10*3/uL 0.33-0.92 L = 742-7) EOS x10^3 (test code = 0.11 10*3/uL 0.03-0.39 711-2) BASO x10^3 (test code <0.03 0.01-0.07 = 704-7) POLYCHROMASIA (test 2+ See_Comment [Automa josemanuel code = 15741-1) message] The system which generated this result transmitted reference range : 2+. The referen ce range was not u sed to interpret th is result as normal/abnormal . LG GRAN LYMPHS (test Rare Rare code = 6529078902) Lab Interpretation Abnormal (test code = 62648-4) [facility] [place]. METABOLIC PANEL (84712)2020-10-02 10:19:28 Test Item Value Reference Range Interpretation Comments NA (test code = 135 mmol/L 135-145 2563747601) K (test code = 3.4 mmol/L 3.5-5.0 L 4787150639) CL (test code = 104 mmol/L 98-108 9849463438) CO2 TOTAL (test code = 27 mmol/L 23-31 6038037700) AGAP (test code = 2-16 8276543019) BUN (test code = 4 mg/dL 7-23 L 5955602108) GLUCOSE (test code = 97 mg/dL 70-110 2403077361) CREATININE (test code = 0.45 mg/dL 0.50-1.04 L 0068292798) TOTAL BILI (test code = 1.7 mg/dL 0.1-1.1 H 7040346043) CALCIUM (test code = 8.2 mg/dL 8.6-10.6 L 4956883717) T PROTEIN (test code = 6.0 g/dL 6.3-8.2 L 6775100130) ALBUMIN (test code = 3.1 g/dL 3.5-5.0 L 1697012431) ALK PHOS (test code = 120 U/L 34-122 7192018428) ALTv (test code = 26 U/L 5-35 1742-6) AST(SGOT) (test code = 39 U/L 13-40 1894433060) eGFR (test code = mL/min/1.73m2 1254800083) SNOW (test code = SNOW) Association of [...] tests). Lab Interpretation Abnormal (test code = 46173-8) [facility] COVID [id number] 02:50:27COVID DMT InterpretationInterpretation/Recommendations: Molecular NAAT Tests for [...] [facility] [place] [facility] SERVICESCOVID Resu kudFVYG-FxE-[id number] NAAT (no units) ? ? Date ? Value ? 02/13/2020 ? Not Detected ? SARS-CoV-2 Rapid ID NOW (no units) ? ? Date ? Value ? 09/29/2020 ? Not Detected ? ? ? 08/10/2019 ? Not Detected ? [facility] SERVICESUnEl [facility] HospitalCB WITH [id number] 10:31:29 Test Item Value Reference Range Interpretation [...] (test code = 52.3 fL 39.0-49.9 H 02359-2) RDW-CV (test code = 18.4 % 12.0-15.5 H 788-0) PLT (test code = See_Comment LL [Automated 777-3) message] The sy stem which generated this result transmitted reference range : 166 - 358 10*3/ ?L. The reference r davi was not used to interpret this result as normal/abnormal . MPV (test code = 11.2 fL 9.5-12.9 52814-1) IPF % (test code = 3.9 % 1.3-7.7 Platelet count 3039884474) measured by fluorescence method. NRBC/100 WBC (test See_Comment [Automat ed code = 4005666793) message] The system which generated this result transmitted reference range : 0.0 - 10.0 /100 WBCs. The refer ence range was not u sed to interpret th is result as normal/abnormal . NRBC x10^3 (test code <0.01 See_Comment [Auto mated = 9727619520) message] The s ystem which generated this result transmitted reference range : 10*3/?L. The reference range was not used to interpret this result as normal/abnormal . GRAN MAT (NEUT) % 57.5 % (test code = 770-8) IMM GRAN % (test code 0.50 % = 8542929132) LYMPH % (test code = 20.7 % 736-9) MONO % (test code = 13.3 % 5905-5) EOS % (test code = 6.9 % 713-8) BASO % (test code = 1.1 % 706-2) GRAN MAT x10^3(ANC) 1.08 10*3/uL 1.88-7.09 L (test code = 3792677227) IMM GRAN x10^3 (test <0.03 0.00-0.06 code = 5001022493) LYMPH x10^3 (test code 0.39 10*3/uL 1.32-3.29 L = 731-0) MONO x10^3 (test code 0.25 10*3/uL 0.33-0.92 L = 742-7) EOS x10^3 (test code = 0.13 10*3/uL 0.03-0.39 711-2) BASO x10^3 (test code <0.03 0.01-0.07 = 704-7) BASO STIPPLING (test Present A code = 703-9) ELLIPTO/OVAL (test 2+ See_Comment A [Automat ed code = 83823-5) message] The system which generated this result transmitted reference range : (none). The reference range was not used to interpret this result as normal/abnormal . POLYCHROMASIA (test 2+ See_Comment [Automa josemanuel code = 13425-1) message] The system which generated this result transmitted reference range : 2+. The referen ce range was not u sed to interpret th is result as normal/abnormal . Lab Interpretation Abnormal (test code = 46046-8) [facility]OLIC PANEL (39256)2020-10-01 09:19:22 Test Item Value Reference Range Interpretation Comments NA (test code = 135 mmol/L 135-145 1629824861) K (test code = 4.0 mmol/L 3.5-5.0 3891618391) CL (test code = 107 mmol/L 98-108 2306482368) CO2 TOTAL (test code = 24 mmol/L 23-31 2060873898) AGAP (test code = 2-16 2555536599) BUN (test code = 7 mg/dL 7-23 8091272230) GLUCOSE (test code = 93 mg/dL 70-110 8208905155) CREATININE (test code = 0.47 mg/dL 0.50-1.04 L 5181357260) TOTAL BILI (test code = 1.6 mg/dL 0.1-1.1 H 2040277559) CALCIUM (test code = 8.1 mg/dL 8.6-10.6 L 7452977795) T PROTEIN (test code = 5.8 g/dL 6.3-8.2 L 1700481603) ALBUMIN (test code = 2.8 g/dL 3.5-5.0 L 1982210034) ALK PHOS (test code = 106 U/L 34-122 1435632506) ALTv (test code = 23 U/L 5-35 1742-6) AST(SGOT) (test code = 39 U/L 13 9838029774) eGFR (test code = mL/min/1.73m2 2182920136) SNOW (test code = SNOW) Association of [...] tests). Lab Interpretation Abnormal (test code = 49436-1) General acute hospitalMEGHANA [id number] 20:47:45 Test Item Value Reference Range Interpretation Comments TROPONIN I (test 0.002 ng/mL See_Comment [Automated code = 1599843595) message] The system which generated this result [...] ? Lab Interpretation Normal (test code = 10908-1) [facility]INE [id number] 19:11:57 Test Item Value Reference Range Interpretation Comments URINE CULTURE (test code <10,000 CFU/mL = 630-4) Gram-Positive Cocci [facility] HospitalFECAL PATHOGENS BY [id number] 18:17:03 Test Item Value Reference Range Interpretation Comments Campylobacter (jejuni, Negative Negative, coli and upsaliensis) Indeterminate, (test code = 50398-3) See comment Plesiomonas shigelloides Negative Negative, (test code = 81754-6) Indeterminate, See comment Salmonella (test code = Negative Negative, 80668-6) Indeterminate, See comment Yersinia enterocolitica Negative Negative, (test code = 01163-3) Indeterminate, See comment Vibrio (test code = Negative Negative, 11524-7) Indeterminate, See comment Vibrio cholerae (test Negative Negative, code = 03244-3) Indeterminate, See comment Enteroaggregative E. Negative Negative, coli (EAEC) (test code = Indeterminate, 63461-3) See comment Enteropathogenic E. coli Negative Negative, N/A, (EPEC) (test code = Indeterminate, 47589-2) See comment Enterotoxigenic E. coli Negative Negative, (ETEC) (test code = Indeterminate, 16168-7) See comment Shiga toxin-Producing E. Negative Negative, coli (STEC) (test code = Indeterminate, 85714-3) See comment Shigella/Enteroinvasive Negative Negative, E. coli (EIEC) (test Indeterminate, code = 09844-8) See comment Cryptosporidium (test Negative Negative, code = 04799-9) Indeterminate, See comment Cyclospora cayetanensis Negative Negative, (test code = 30393-1) Indeterminate, See comment Entamoeba histolytica Negative Negative, (test code = 67449-4) Indeterminate, See comment Giardia lamblia (test Negative Negative, code = 00488-9) Indeterminate, See comment Adenovirus F 40/41 (test Negative Negative, code = 44802-2) Indeterminate, See comment Astrovirus (test code = Negative Negative, 98996-0) Indeterminate, See comment Norovirus GI/GII (test Negative Negative, code = 98506-8) Indeterminate, See comment Rotavirus A (test code = Negative Negative, 85807-3) Indeterminate, See comment Sapovirus (test code = Negative Negative, 57531-7) Indeterminate, See comment Clostridioides Positive Negative, A (Clostridium) difficile Indeterminate, Toxin A/B (test code = See comment 45949-0) SNOW (test code = SNOW) Based on MeepsArray GI Panel package insert, the MeepsArray GI Panel contains a single multiplexed assay [...] the binary toxin gene (CDT), and the njaecz-wvig-rbsw deletion at nucleotide 117 within the gene [...] organism. Lab Interpretation (test Abnormal code = 09493-2) [facility] Hospital[facility]CCULT (GUAIAC) [id number] 14:26:32 Test Item Value Reference Range Interpretation Comments Occult (guaiac) Blood (test code = Negative Negative 2335-8) Lab Interpretation (test code = Normal 65599-0) [facility] WITH [id number] 13:54:12 Test Item Value Reference Range Interpretation [...] (test code = 52.9 fL 39.0-49.9 H 57083-3) RDW-CV (test code = 18.3 % 12.0-15.5 H 788-0) PLT (test code = See_Comment LL [Automated 777-3) message] The sy stem which generated this result transmitted reference range : 166 - 358 10*3/ ?L. The reference r davi was not used to interpret this result as normal/abnormal . MPV (test code = 10.8 fL 9.5-12.9 18478-3) IPF % (test code = 4.2 % 1.3-7.7 Platelet count 9315805163) measured by fluorescence method. NRBC/100 WBC (test See_Comment [Automat ed code = 1900210659) message] The system which generated this result transmitted reference range : 0.0 - 10.0 /100 WBCs. The refer ence range was not u sed to interpret th is result as normal/abnormal . NRBC x10^3 (test code <0.01 See_Comment [Auto mated = 4412877647) message] The s ystem which generated this result transmitted reference range : 10*3/?L. The reference range was not used to interpret this result as normal/abnormal . GRAN MAT (NEUT) % 60.0 % (test code = 770-8) IMM GRAN % (test code 0.40 % = 8150377634) LYMPH % (test code = 20.6 % 736-9) MONO % (test code = 11.3 % 5905-5) EOS % (test code = 6.9 % 713-8) BASO % (test code = 0.8 % 706-2) GRAN MAT x10^3(ANC) 1.49 10*3/uL 1.88-7.09 L (test code = 7680916274) IMM GRAN x10^3 (test <0.03 0.00-0.06 code = 7155708810) LYMPH x10^3 (test code 0.51 10*3/uL 1.32-3.29 L = 731-0) MONO x10^3 (test code 0.28 10*3/uL 0.33-0.92 L = 742-7) EOS x10^3 (test code = 0.17 10*3/uL 0.03-0.39 711-2) BASO x10^3 (test code <0.03 0.01-0.07 = 704-7) Lab Interpretation Abnormal (test code = 13550-5) [facility]OLIC PANEL (29238)2020-09-30 12:47:49 Test Item Value Reference Range Interpretation Comments NA (test code = 135 mmol/L 135-145 6251135460) K (test code = 4.0 mmol/L 3.5-5.0 4545108469) CL (test code = 108 mmol/L 98-108 9111436354) CO2 TOTAL (test code = 23 mmol/L 23-31 5322812820) AGAP (test code = 2-16 6226301939) BUN (test code = 8 mg/dL 7-23 3412835489) GLUCOSE (test code = 109 mg/dL 70-110 8205288126) CREATININE (test code = 0.52 mg/dL 0.50-1.04 2037016596) TOTAL BILI (test code = 1.7 mg/dL 0.1-1.1 H 5625376896) CALCIUM (test code = 8.0 mg/dL 8.6-10.6 L 1310961530) T PROTEIN (test code = 5.7 g/dL 6.3-8.2 L 5201319902) ALBUMIN (test code = 2.7 g/dL 3.5-5.0 L 8715137550) ALK PHOS (test code = 106 U/L 34-122 6623819617) ALTv (test code = 22 U/L 5-35 1742-6) AST(SGOT) (test code = 34 U/L 13-40 7702528182) eGFR (test code = mL/min/1.73m2 2037671277) SNOW (test code = SNOW) Association of [...] tests). Lab Interpretation Abnormal (test code = 65403-5) [facility] HospitalFECAL [id number] 11:49:39 Test Item Value Reference Range Interpretation Comments Fecal Leukocytes (test code = Positive Negative A 9377144724) Lab Interpretation (test code = Abnormal 65178-1) [facility]N-TERMINAL [id number] 10:20:53 Test Item Value Reference Range Interpretation Comments NT-proBNP (test code 68 pg/mL See_Comment [Autom ated = 4545713312) message] The system which generated this result transmitted reference range : <=125. The reference range was not used to interpret this result as normal/abnormal . SNOW (test code = SNOW) Biotin has been reported to cause a negative bias, interpret results relative to patient's use of biotin. Lab Interpretation Normal (test code = 61373-2) [facility] HospitalCLOSTRIDIUM DIFFICILE [id number] 05:18:16 Test Item Value Reference Range Interpretation Comments Clostridioides (Clostridium) Negative Negative difficile (test code = 52118-2) Lab Interpretation (test code = Normal 38855-9) [facility] HospitalPOCT GLUCOSE (AUTOMATED)2020-09-30 00:54:42 Test Item Value Reference Range Interpretation Comments POCT GLU (test code = 3756941813) 111 mg/dL 70-110 H Lab Interpretation (test code = Abnormal 62764-6) [facility] HospitalBASIC METABOLIC PANEL (NA, K, CL, CO2, GLUCOSE, BUN, CREATININE, CA)2020-09-29 22:08:22 Test Item Value Reference Range Interpretation Comments NA (test code = 135 mmol/L 135-145 0974313801) K (test code = 3.7 mmol/L 3.5-5.0 1666441643) CL (test code = 108 mmol/L 98-108 7404129357) CO2 TOTAL (test code = 22 mmol/L 23-31 L 3340182324) AGAP (test code = 2-16 9553654022) BUN (test code = 9 mg/dL 7-23 4959617436) GLUCOSE (test code = 104 mg/dL 70-110 4545528362) CREATININE (test code = 0.51 mg/dL 0.50-1.04 7220835336) CALCIUM (test code = 7.9 mg/dL 8.6-10.6 L 0447105426) eGFR (test code = mL/min/1.73m2 6276673655) SNOW (test code = SNOW) Association of [...] tests). Lab Interpretation Abnormal (test code = 99970-7) [facility]HEMOGLOBIN2021-06-21 21:41:20 Test Item Value Reference Range Interpretation Comments HGB (test code = 718-7) 7.4 g/dL 11.6-15.0 L Lab Interpretation (test code = Abnormal 92914-4) [facility] HospitalVITAMIN B12, [id number] 20:39:52 Test Item Value Reference Range Interpretation Comments VIT B12 (test code = 212 pg/mL 240-930 L 7064349973) SNOW (test code = SNOW) Biotin has been reported to cause a positive bias, interpret results relative to patient's use of biotin. 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.[facility] HospitalC-REACTIVE [id number] 17:01:56 Test Item Value Reference Range Interpretation Comments CRP (test code = 4642456273) 4.7 mg/dL <0.8 H Lab Interpretation (test code = Abnormal 58082-7) [facility] HospitalVITAMIN D, [id number] 16:43:29 Test Item Value Reference Range Interpretation Comments VIT D 25OH (test code = <13 25-80 L 66731-6) SNOW (test code = SNOW) Deficiency: <20 ng/mLInsufficiency: 20-24 ng/mLOptimal: 25-80 ng/mL Lab Interpretation (test Abnormal code = 07023-6) [facility]IN2021-[facility] 16:15:30 Test Item Value Reference Range Interpretation Comments Procalcitonin (test 0.08 ng/mL <0.07 H code = 7459009178) SNOW (test code = SNOW) INTERPRETATION OF [...] lung abscess/empyema. For further information please refer to:[email or web address] Lab Interpretation Abnormal (test code = 19832-1) [facility] HospitalOSMOLALITY [id number] 15:35:14 Test Item Value Reference Range Interpretation Comments OSMO U (test code = See_Comment [Automa josemanuel message] [id number]) The system [employer] generated this result transmitted ref erence range: 50-1,100 mOsm/kg. The re ference range was not u sed to interpret this result as normal/abnor mal. Lab Interpretation (test Normal code = 04399-6) [facility] [facility]TROP[facility] [id number] 14:04:56 Test Item Value Reference Range Interpretation Comments TROPONIN I (test 0.002 ng/mL See_Comment [Automated code = 7583725380) message] The system which generated this result [...] ? Lab Interpretation Normal (test code = 69474-5) [facility]CT [facility] PEL[facility] W [id number] 13:37:17 1. ?Findings concerning for infectious or [...] this study and agree with theabove report.[facility] WITH [id number] 11:41:25 Test Item Value Reference Range Interpretation Comments WBC (test code = See_Comment L [Automated 4790-2) message] The system which generated this result [...] (test code = 52.4 fL 39.0-49.9 H 17986-6) RDW-CV (test code = 18.2 % 12.0-15.5 H 788-0) PLT (test code = See_Comment LL [Automated 777-3) message] The system which generated this result transmit josemanuel reference range : 166 - 358 10*3/ ?L. The reference range was not u sed to interpret th is result as normal/abnormal . MPV (test code = Not Measure d 77871-8) IPF % (test code = 4.3 % 1.3-7.7 Platelet count 9650541075) measured by fluorescence method. NRBC/100 WBC (test See_Comment [Automat ed code = 9976470762) message] The system which generated this result transmit josemanuel reference range : 0.0 - 10.0 /100 WBCs. The reference range was not used to interpret this result as normal/abnormal . NRBC x10^3 (test code <0.01 See_Comment [Auto mated = 1406175448) message] The system which generated this result transmit josemanuel reference range : 10*3/?L. The reference range was not used to interpret this result as normal/abnormal . GRAN MAT (NEUT) % 74.4 % (test code = 770-8) IMM GRAN % (test code 0.50 % = 9226286230) LYMPH % (test code = 10.3 % 736-9) MONO % (test code = 12.3 % 5905-5) EOS % (test code = 2.0 % 713-8) BASO % (test code = 0.5 % 706-2) GRAN MAT x10^3(ANC) 3.02 10*3/uL 1.88-7.09 (test code = 8195771180) IMM GRAN x10^3 (test <0.03 0.00-0.06 code = 8974928269) LYMPH x10^3 (test 0.42 10*3/uL 1.32-3.29 L code = 731-0) MONO x10^3 (test code 0.50 10*3/uL 0.33-0.92 = 742-7) EOS x10^3 (test code 0.08 10*3/uL 0.03-0.39 = 711-2) BASO x10^3 (test code <0.03 0.01-0.07 = 704-7) PLT ESTIMATE (test Decreased Normal A code = 9317-9) SNOW (test code = SNOW) CBC smear reduced platelet Lab Interpretation Abnormal (test code = 66112-2) [facility]MINAL [id number] 11:07:24 Test Item Value Reference Range Interpretation Comments NT-proBNP (test code 79 pg/mL See_Comment [Autom ated = 1240941182) message] The system which generated this result transmitted reference range : <=125. The reference range was not used to interpret this result as normal/abnormal . SNOW (test code = SNOW) Biotin has been reported to cause a negative bias, interpret results relative to patient's use of biotin. Lab Interpretation Normal (test code = 42724-3) [facility] HospitalIRON [id number] 11:04:41 Test Item Value Reference Range Interpretation Comments IRON (test code = 6417966883) 31 ug/dL 50-160 L TIBC (test code = 6728207248) 295 ug/dL 250-410 % FE SAT (test code = 2328793015) 11 % 20-50 L Lab Interpretation (test code = Abnormal 72407-1) [facility] HospitalPROTEIN CREAT RATIO URINE [id number] 10:57:19 Test Item Value Reference Range Interpretation Comments T. PROT U (test code = 2888-6) 9 mg/dL CREAT U (test code = 4439988248) 187.5 mg/dL Protein/Creatinine Ratio Urine 0.0-2.0 (test code = 6299448523) [facility] HospitalSODIUM, URINE [id number] 10:53:21 Test Item Value Reference Range Interpretation Comments NA URINE (test code = 5722317634) 30 mmol/L [facility] HospitalSEDIMENTATION [id number] 10:33:04 Test Item Value Reference Range Interpretation Comments ESR (test code = See_Comment [Automated message] 1299090880) The system [employer] generated this result transmitted ref erence range: 0 - 20 m m/HR. The reference r davi was not used to interpret this result as normal/abnor mal. Lab Interpretation (test Normal code = 03086-9) [facility] HospitalPROTHROMBIN TIME / [id number] 09:43:39 Test Item Value Reference Range Interpretation Comments PROTIME PATIENT (test See_Comment H [Auto mated message] code = 5964-2) The system [employer] generated this result transmitted ref erence range: 12.0 - 1 4.7 Seconds. The reference range was not used to int erpret this result as normal/abnormal . INR (test code = 6301-6) Nor mal INR <1.1; Warfarin Therap eutic range 2.0 to 3. 0 or 2.5 to 3.5, dep ending upon the indica tions. Lab Interpretation (test Abnormal code = 51695-2) [facility] HospitalLactic Acid Whole [id number] 08:42:38 Test Item Value Reference Range Interpretation Comments LACTIC ACID (test code = 1.47 mmol/L 0.50-2.20 2739217746) Lab Interpretation (test code = Normal 28554-5) [facility] HospitalFERRITIN [id number] 07:31:09 Test Item Value Reference Range Interpretation Comments FERRITIN (test code = 12.2 ng/mL 11.0-264.0 3414315519) SNOW (test code = SNOW) Biotin has been reported to cause a negative bias, interpret results relative to patient's use of biotin. Lab Interpretation (test Normal code = 08571-9) [facility] HospitalTHYROID STIMULATING [id number] 07:27:08 Test Item Value Reference Range Interpretation Comments TSH (test code = See_Comment [Automated message] 9237025395) The system [employer] generated this result transmitted ref erence range: 0.45 - 4 .70 mIU/L. The refe rence range was not u sed to interpret this result as normal/abnor mal. Lab Interpretation (test Normal code = 79552-6) [facility] HospitalGLYCOSYLATED HEMOGLOBIN (A1C)2020-09-29 07:05:40 Test Item Value Reference Range Interpretation Comments HGB A1C (test code = 5.0 % 4.0-5.7 4548-4) SNOW (test code = SNOW) Reference RangesNormal: <5.7%Prediabetes: 5.7 - 6.4%Diabetes: > 6.5% Lab Interpretation (test Normal code = 62661-0) [facility] HospitalURIC [id number] 07:05:35 Test Item Value Reference Range Interpretation Comments URIC ACID (test code = 6003346372) 4.2 mg/dL 2.9-6.0 Lab Interpretation (test code = Normal 93117-4) [facility] HospitalCREATINE [id number] 07:05:30 Test Item Value Reference Range Interpretation Comments CK (test code = 6192866090) 192 U/L 33-194 Lab Interpretation (test code = Normal 02333-7) [facility] HospitalN-TERMINAL [id number] 07:05:30 Test Item Value Reference Range Interpretation Comments NT-proBNP (test code 94 pg/mL See_Comment [Autom ated = 6352765456) message] The system which generated this result transmitted reference range : <=125. The reference range was not used to interpret this result as normal/abnormal . SNOW (test code = SNOW) Biotin has been reported to cause a negative bias, interpret results relative to patient's use of biotin. Lab Interpretation Normal (test code = 29422-4) [facility] HospitalMAGNESIUM2021-06-21 07:04:24 Test Item Value Reference Range Interpretation Comments MAGNESIUM (test code = 2858908755) 1.8 mg/dL 1.7-2.4 Lab Interpretation (test code = Normal 77893-1) [facility] HospitalPHOSPHORUS2021-06-21 07:03:39 Test Item Value Reference Range Interpretation Comments PHOSPHORUS (test code = 6311493469) 2.2 mg/dL 2.5-5.0 L Lab Interpretation (test code = Abnormal 77147-2) [facility] HospitalLIPID PANEL (69932)(TOTAL CHOLESTEROL, TRIGLYCERIDES, HDL)2020-09-29 06:56:06 Test Item Value Reference Range Interpretation Comments CHOL (test code = 132 mg/dL 120-200 0995691689) HDL (test code = 41 mg/dL >50 L 0500283421) HDLC RATIO (test code = See_Comment [Au tomated message] 5654875053) The system [employer] generated this result transmit josemanuel reference range : <=4.5. The refe rence range was not u sed to interpret th is result as normal/abnormal . TRIG (test code = 73 mg/dL 30-170 5649185522) LDL CHOL (test code = 76 mg/dL See_Comment [Auto mated message] 88246-9) The system [employer] generated this result transmit josemanuel reference range : <=160. The refe rence range was not u sed to interpret th is result as normal/abnormal . VLDL (test code = 15 mg/dL 5-60 4917957010) Lab Interpretation (test Abnormal code = 25633-1) [facility] HospitalCOVID-19 (ID NOW RAPID TESTING)2020-09-29 06:24:26 Test Item Value Reference Range Interpretation Comments SARS-CoV-2 Rapid ID NOW Not Detected Not Detected (test code = 04530-3) SNOW (test code = SNOW) ID NOW COVID-19 Assay is an isothermal nucleic acid amplification test intended for the qualitative detection of nucleic acid from SARS-CoV-2 viral RNA in nasopharyngeal (BARIATRIC NURSE) specimens. It is used under Emergency Use [...] indicated. Lab Interpretation Normal (test code = 26090-2) [facility] HospitalURINALYSIS2021-06-21 04:43:31 Test Item Value Reference Range Interpretation Comments APPEARANCE (test code = Clear Clear 4978863767) COLOR (test code = Rosanne Yellow A 6990109506) PH (test code = 4.8-8.0 9532127966) SP GRAVITY (test code = 1.003-1.030 3443067679) GLU U QUAL (test code = Normal Normal 7755904364) BLOOD (test code = Negative Negative 3570631871) KETONES (test code = Negative Negative 1723016111) PROTEIN (test code = 30 mg/dL Negative A 2887-8) UROBILIN (test code = Normal Normal 8988798960) BILIRUBIN (test code = Negative Negative 1493243271) NITRITE (test code = Negative Negative 5800014112) LEUK RANULFO (test code = 25/uL Negative A 3204479822) RBC/HPF (test code = See_Comment [Autom ated message] 3803002174) The system [employer] generated this result transmitted ref erence range: 0 - 3 HP F. The reference range was not used to int erpret this result as normal/abnormal . WBC/HPF (test code = See_Comment [Autom ated message] 3020000826) The system [employer] generated this result transmitted ref erence range: 0 - 5 HP F. The reference range was not used to int erpret this result as normal/abnormal . BACTERIA (test code = Few Negative A 6067509101) MUCOUS (test code = Moderate Negative LPF A 1928701859) SQ EPITH (test code = HPF 6315909819) Lab Interpretation (test Abnormal code = 56915-2) [facility] HospitalCBC WITH [id number] 04:39:35 Test Item Value Reference Range Interpretation Comments WBC (test code = See_Comment [Automated 5290-2) message] The system which generated this result transmit josemanuel reference range : 4.30 - 11.10 10*3/?L. The reference range was not used to interpret this result as normal/abnormal . RBC (test code = See_Comment L [Automated 459-8) message] The system which generated this result [...] (test code = 51.3 fL 39.0-49.9 H 46752-0) RDW-CV (test code = 18.1 % 12.0-15.5 H 788-0) PLT (test code = See_Comment L [Automated 777-3) message] The system which generated this result transmit josemanuel reference range : 166 - 358 10*3/ ?L. The reference range was not u sed to interpret th is result as normal/abnormal . MPV (test code = 11.1 fL 9.5-12.9 94344-0) IPF % (test code = 3.7 % 1.3-7.7 Platelet count 4956336149) measured by fluorescence method. NRBC/100 WBC (test See_Comment [Automat ed code = 0297843028) message] The system which generated this result transmit josemanuel reference range : 0.0 - 10.0 /100 WBCs. The reference range was not used to interpret this result as normal/abnormal . NRBC x10^3 (test code <0.01 See_Comment [Auto mated = 3970064249) message] The system which generated this result transmit josemanuel reference range : 10*3/?L. The reference range was not used to interpret this result as normal/abnormal . GRAN MAT (NEUT) % 76.4 % (test code = 770-8) IMM GRAN % (test code 0.80 % = 4359566535) LYMPH % (test code = 9.4 % 736-9) MONO % (test code = 11.3 % 5905-5) EOS % (test code = 1.5 % 713-8) BASO % (test code = 0.6 % 706-2) GRAN MAT x10^3(ANC) 4.07 10*3/uL 1.88-7.09 (test code = 5927204326) IMM GRAN x10^3 (test 0.04 10*3/uL 0.00-0.06 code = 7799469784) LYMPH x10^3 (test 0.50 10*3/uL 1.32-3.29 L code = 731-0) MONO x10^3 (test code 0.60 10*3/uL 0.33-0.92 = 742-7) EOS x10^3 (test code 0.08 10*3/uL 0.03-0.39 = 711-2) BASO x10^3 (test code 0.03 10*3/uL 0.01-0.07 = 704-7) PLT ESTIMATE (test Decreased Normal A code = 9317-9) SNOW (test code = SNOW) Juan slide adgrees to decreased Platelet Lab Interpretation Abnormal (test code = 11969-1) [facility]. METABOLIC PANEL (67620)2020-09-29 04:25:42 Test Item Value Reference Range Interpretation Comments NA (test code = 134 mmol/L 135-145 L 0910928589) K (test code = 3.2 mmol/L 3.5-5.0 L 7699124971) CL (test code = 104 mmol/L 98-108 7050352458) CO2 TOTAL (test code = 24 mmol/L 23-31 5474518793) AGAP (test code = 2-16 6641016873) BUN (test code = 8 mg/dL 7-23 1190660497) GLUCOSE (test code = 105 mg/dL 70-110 7772699885) CREATININE (test code = 0.51 mg/dL 0.50-1.04 9750659113) TOTAL BILI (test code = 2.5 mg/dL 0.1-1.1 H 4400575395) CALCIUM (test code = 8.2 mg/dL 8.6-10.6 L 8089283318) T PROTEIN (test code = 6.3 g/dL 6.3-8.2 9654008962) ALBUMIN (test code = 3.1 g/dL 3.5-5.0 L 0660769910) ALK PHOS (test code = 136 U/L 34-122 H 9199472464) ALTv (test code = 24 U/L 5-35 1742-6) AST(SGOT) (test code = 30 U/L 13-40 8664591359) eGFR (test code = mL/min/1.73m2 4217577241) SNOW (test code = SNOW) Association of [...] tests). Lab Interpretation Abnormal (test code = 41119-8) [facility] HospitalLIPASE2021-06-21 04:25:42 Test Item Value Reference Range Interpretation Comments LIPASE (test code = 9478500926) 102 U/L 0-220 Lab Interpretation (test code = Normal 25177-8) [facility] HospitalSARS-CoV-2 (COVID-19) RNA [Presence] in Respiratory specimen by HELENA with probe [id number] 00:49:19 Test Item Value Reference Range Interpretation Comments SARS-CoV-2 (COVID-19) RNA Not detected Not-Detected [Presence] in Respiratory specimen by HELENA with probe detection (test code = 02690-0) 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 employed in a healthcare setting (test code = 39508-4) Whether the patient has symptoms related to condition of interest (test code = 12495-4) Patient was hospitalized because of this condition (test code = 14319-8) Whether the patient was admitted to intensive care unit (ICU) for condition of interest (test code = 67581-5) Whether patient resides in a congregate care setting (test code = 46655-3) SARS-CoV-2 (COVID-19) RNA [Presence] in Respiratory specimen by HELENA with probe [id number] 02:47:43 Test Item Value Reference Range Interpretation Comments SARS-CoV-2 (COVID-19) RNA Not detected Not-Detected [Presence] in Respiratory specimen by HELENA with probe detection (test code = 13099-6) SARS-CoV-2 (COVID-19) RNA [Presence] in Respiratory specimen by HELENA with probe [id number] 16:32:37 Test Item Value Reference Range Interpretation Comments SARS-CoV-2 (COVID-19) RNA Not detected Not-Detected [Presence] in Respiratory specimen by HELENA with probe detection (test code = 67820-3) SARS-CoV-2 (COVID-19) RNA [Presence] in Respiratory specimen by HELENA with probe [id number] 05:29:57 Test Item Value Reference Range Interpretation Comments SARS-CoV-2 (COVID-19) RNA Not detected Not-Detected [Presence] in Respiratory specimen by HELENA with probe detection (test code = 61196-5) CT ABDOMEN PELVIS W [id number] 19:27:49 1. ?No evidence of small bowel [...] this study and agree with the abovereport.[facility] WITH [id number] 11:56:00 Test Item Value Reference Range Interpretation Comments WBC (test code = See_Comment L [Automated 7290-2) message] The sy stem which generated this [...] (test code = 58.0 fL 39-49.9 H 06034-2) RDW-CV (test code = 16.6 % 12-15.5 H 788-0) PLT (test code = See_Comment LL [Automated 777-3) message] The sy stem which generated this result transmitted reference range : 166 - 358 10*3/ ?L. The reference r davi was not used to interpret this result as normal/abnormal . MPV (test code = 11.0 fL 9.5-12.9 53656-6) IPF % (test code = 5.5 % 1.3-7.7 Platelet count 4912234691) measured by fluorescence method. NRBC/100 WBC (test See_Comment [Automat ed code = 1058138525) message] The system which generated this result transmitted reference range : 0.0 - 10.0 /100 WBCs. The refer ence range was not u sed to interpret th is result as normal/abnormal . NRBC x10^3 (test code <0.01 See_Comment [Auto mated = 8610996892) message] The s ystem which generated this result transmitted reference range : 10*3/?L. The reference range was not used to interpret this result as normal/abnormal . GRAN MAT (NEUT) % 57.6 % (test code = 770-8) IMM GRAN % (test code 0.00 % = 1038433606) LYMPH % (test code = 27.1 % 736-9) MONO % (test code = 11.8 % 5905-5) EOS % (test code = 3.1 % 713-8) BASO % (test code = 0.4 % 706-2) GRAN MAT x10^3(ANC) 1.47 10*3/uL 1.88-7.09 L (test code = 1148778415) IMM GRAN x10^3 (test <0.03 0-0.06 code = 0726970746) LYMPH x10^3 (test code 0.69 10*3/uL 1.32-3.29 L = 731-0) MONO x10^3 (test code 0.30 10*3/uL 0.33-0.92 L = 742-7) EOS x10^3 (test code = 0.08 10*3/uL 0.03-0.39 711-2) BASO x10^3 (test code <0.03 0.01-0.07 = 704-7) Lab Interpretation Abnormal (test code = 82748-7) [facility]. METABOLIC PANEL (11147)2019-08-11 10:42:00 Test Item Value Reference Range Interpretation Comments NA (test code = 138 mmol/L 135-145 5341315124) K (test code = 3.8 mmol/L 3.5-5 3163136403) CL (test code = 108 mmol/L 98-108 4864852957) CO2 TOTAL (test code = 24 mmol/L 23-31 6197772165) AGAP (test code = 2-16 3346000545) BUN (test code = 10 mg/dL 7-23 0261977916) GLUCOSE (test code = 108 mg/dL 70-110 1719289509) CREATININE (test code = 0.43 mg/dL 0.5-1.04 L 5310310749) TOTAL BILI (test code = 2.5 mg/dL 0.1-1.1 H 9122664807) CALCIUM (test code = 8.4 mg/dL 8.6-10.6 L 9853877158) T PROTEIN (test code = 6.1 g/dL 6.3-8.2 L 1719578474) ALBUMIN (test code = 3.1 g/dL 3.5-5 L 3105462318) ALK PHOS (test code = 102 U/L 34-122 8992823010) ALTv (test code = 52 U/L 5-35 H 1742-6) AST(SGOT) (test code = 63 U/L 13-40 H 8241389802) eGFR Calculation mL/min/1.73m2 (Non-) (test code = 3848617977) eGFR Calculation mL/min/1.73m2 () (test code = 8191287326) SNOW (test code = SNOW) Association of [...] tests). Lab Interpretation Abnormal (test code = 84106-8) [facility] HospitalXR SMALL BOWEL [id number] 02:08:11 1. ?No bowel obstruction. No fluoroscopic images or fluoroscopic time. RL 6200 HISTORY: ?Abdominal pain COMPARISON: ?None FINDINGS: There is a nonobstructive bowel gas pattern. Contrast is seen throughoutthe entire small bowel and colon. Nodilated loops of bowel demonstrated. [facility], Radiant Results Inft User - 08/10/2019 9:09 PM CDTHISTORY: Abdominal painCOMPARISON: NoneFINDINGS:There is a nonobstructive bowel gas pattern. Contrast is seen throughoutthe entire small bowel and colon. No dilated loops of bowel demonstrated.IMPRESSION1.No bowel obstruction.No fluoroscopic images or fluoroscopic time.RL 6200 [facility]SEDIM[facility]ATION [id number] 16:19:00 Test Item Value Reference Range Interpretation Comments ESR (test code = See_Comment [Automated message] 7878687665) The system [employer] generated this result transmitted ref erence range: 0 - 20 m m/HR. The reference r davi was not used to interpret this result as normal/abnor mal. Lab Interpretation (test Normal code = 18774-8) [facility] HospitalAbdominal 1 View - To confirm nasogastric [...] system. No acute bony abnormalities are noted. [facility], Radiant Results Inft User - 08/10/2019 10:25 [...] this study and agree with the abovereport.[facility] WITH [id number] 13:48:00 Test Item Value Reference Range Interpretation [...] (test code = 58.4 fL 39-49.9 H 42384-3) RDW-CV (test code = 16.7 % 12-15.5 H 788-0) PLT (test code = See_Comment LL [Automated 777-3) message] The system which generated this result transmit josemanuel reference range : 166 - 358 10*3/ ?L. The reference range was not u sed to interpret th is result as normal/abnormal . MPV (test code = 10.5 fL 9.5-12.9 67881-4) IPF % (test code = 3.0 % 1.3-7.7 Platelet count 6162414366) measured by fluorescence method. NRBC/100 WBC (test See_Comment [Automat ed code = 4662350720) message] The system which generated this result transmit josemanuel reference range : 0.0 - 10.0 /100 WBCs. The reference range was not used to interpret this result as normal/abnormal . NRBC x10^3 (test code <0.01 See_Comment [Auto mated = 8069199607) message] The system which generated this result transmit josemanuel reference range : 10*3/?L. The reference range was not used to interpret this result as normal/abnormal . GRAN MAT (NEUT) % 57.1 % (test code = 770-8) IMM GRAN % (test code 0.40 % = 5637315627) LYMPH % (test code = 28.1 % 736-9) MONO % (test code = 10.4 % 5905-5) EOS % (test code = 3.6 % 713-8) BASO % (test code = 0.4 % 706-2) GRAN MAT x10^3(ANC) 1.42 10*3/uL 1.88-7.09 L (test code = 6264361145) IMM GRAN x10^3 (test <0.03 0-0.06 code = 6040879955) LYMPH x10^3 (test 0.70 10*3/uL 1.32-3.29 L code = 731-0) MONO x10^3 (test code 0.26 10*3/uL 0.33-0.92 L = 742-7) EOS x10^3 (test code 0.09 10*3/uL 0.03-0.39 = 711-2) BASO x10^3 (test code <0.03 0.01-0.07 = 704-7) PLT ESTIMATE (test Critically Normal AA code = 9317-9) Decreased Lab Interpretation Abnormal (test code = 17901-8) [facility] HospitalGLYCOSYLATED HEMOGLOBIN (A1C)2019-08-10 13:13:00 Test Item Value [...] Indicated Lab Interpretation Normal (test code = 29707-9) [facility] HospitalTHYROID STIMULATING [id number] 13:05:00 Test Item Value Reference Range Interpretation Comments TSH (test code = See_Comment [Automated message] 0891674146) The system [employer] generated this result transmitted ref erence range: 0.45 - 4 .70 mIU/L. The refe rence range was not u sed to interpret this result as normal/abnor mal. Lab Interpretation (test Normal code = 05898-7) [facility] HospitalPREGNANCY TEST, [id number] 13:04:00 Test Item Value Reference Range Interpretation Comments PREG SERUM (test code Negative = 3624834458) SNOW (test code = SNOW) Less than 10 IU/L. ?If low titer or ectopic is suspected, resubmit specimen in 48-72 hours. [facility] HospitalLIPID PANEL (48768)(TOTAL CHOLESTEROL, TRIGLYCERIDES, HDL)2019-08-10 12:36:00 Test Item Value Reference Range Interpretation Comments CHOL (test code = 158 mg/dL 120-200 8940916068) HDL (test code = 47 mg/dL >50 L 1740470008) HDLC RATIO (test code = See_Comment [Au tomated message] 9044337159) The system [employer] generated this result transmit josemanuel reference range : <=4.5. The refe rence range was not u sed to interpret th is result as normal/abnormal . TRIG (test code = 51 mg/dL 30-170 5363147053) LDL CHOL (test code = 101 mg/dL See_Comment [Auto mated message] 17776-0) The system [employer] generated this result transmit josemanuel reference range : <=160. The refe rence range was not u sed to interpret th is result as normal/abnormal . VLDL (test code = 10 mg/dL 5-60 8618725093) Lab Interpretation (test Abnormal code = 97381-5) [facility] HospitalCOMP. METABOLIC PANEL (55887)2019-08-10 12:35:00 Test Item Value Reference Range Interpretation Comments NA (test code = 139 mmol/L 135-145 6718327134) K (test code = 3.9 mmol/L 3.5-5 6426066651) CL (test code = 109 mmol/L 98-108 H 0570894234) CO2 TOTAL (test code = 25 mmol/L 23-31 4939654568) AGAP (test code = 2-16 8992811618) BUN (test code = 15 mg/dL 7-23 3553434913) GLUCOSE (test code = 218 mg/dL 70-110 H 9634171275) CREATININE (test code = 0.40 mg/dL 0.5-1.04 L 6768620457) TOTAL BILI (test code = 2.0 mg/dL 0.1-1.1 H 6983726396) CALCIUM (test code = 8.5 mg/dL 8.6-10.6 L 9939267153) T PROTEIN (test code = 6.2 g/dL 6.3-8.2 L 6962687548) ALBUMIN (test code = 3.1 g/dL 3.5-5 L 8932012725) ALK PHOS (test code = 99 U/L 34-122 2694355855) ALTv (test code = 42 U/L 5-35 H 1742-6) AST(SGOT) (test code = 49 U/L 13-40 H 2791979796) eGFR Calculation mL/min/1.73m2 (Non-) (test code = 7847345069) eGFR Calculation mL/min/1.73m2 () (test code = 8977876863) SNOW (test code = SNOW) Association of [...] tests). Lab Interpretation Abnormal (test code = 35319-4) [facility] 12:35:00 Test Item Value Reference Range Interpretation Comments MAGNESIUM (test code = 5037492441) 1.6 mg/dL 1.7-2.4 L Lab Interpretation (test code = Abnormal 60566-3) [facility]2020-[facility] 12:35:00 Test Item Value Reference Range Interpretation Comments PHOSPHORUS (test code = 8023746065) 3.6 mg/dL 2.5-5 Lab Interpretation (test code = Normal 39400-1) [facility] HospitalCREATINE [id number] 12:35:00 Test Item Value Reference Range Interpretation Comments CK (test code = 7629401626) 123 U/L 33-194 Lab Interpretation (test code = Normal 90141-9) [facility] 12:35:00 Test Item Value Reference Range Interpretation Comments LIPASE (test code = 4856883149) 141 U/L 0-220 Lab Interpretation (test code = Normal 44687-8) [facility]AMYL[facility]2020-05-[facility] 12:34:00 Test Item Value Reference Range Interpretation Comments LIN (test code = 9208620447) 73 U/L 35-110 Lab Interpretation (test code = Normal 64026-6) [facility] HospitalPROTHROMBIN TIME / [id number] 12:07:00 Test Item Value Reference Range Interpretation Comments PROTIME PATIENT (test See_Comment H [Auto mated message] code = 5964-2) The system [employer] generated this result transmitted ref erence range: 12.0 - 1 4.7 Seconds. The reference range was not used to int erpret this result as normal/abnormal . INR (test code = 6301-6) Nor mal INR <1.1; Warfarin Therap eutic range 2.0 to 3. 0 or 2.5 to 3.5, dep ending upon the indica tions. Lab Interpretation (test Abnormal code = 63985-0) [facility] HospitalCORONAVIRUS COVID-19 [id number] 10:18:00 Test Item Value Reference Range Interpretation Comments SARS-CoV-2 (test code = Not Detected Not Detected 68299-2) SNOW (test code = SNOW) ID NOW COVID-19 Assay is an isothermal nucleic acid amplification test intended for the qualitative detection of nucleic acid from SARS-CoV-2 viral RNA in nasopharyngeal (BARIATRIC NURSE) specimens. It is used under Emergency Use [...] indicated. Lab Interpretation Normal (test code = 59854-5) [facility] HospitalRAD, CHEST, 1 VIEW, NON [id number] 07:50:00Reason for exam:->SOBShould this be performed at the bedside?->Yes FINAL REPORT CLINICAL HISTORY: SOB TECHNIQUE: 1 view of the chest. COMPARISON: None IMPRESSION: There is pulmonary vascular congestion with prominent lung markings bilaterally. Subpulmonic pleural effusions cannot be excluded. The cardiomediastinal silhouette is magnified by technique. Signed: Franky Louis MDReport Verified Date/Time: 10/03/2018 07:50:47 Reading Location: [facility] Radiology Reading Room [id number] 07:37:00 Test Item Value Reference Range Interpretation Comments MAGNESIUM (BEAKER) (test code = 1.6 mg/dL 1.6-2.6 627) BASIC METABOLIC [id number] 07:37:00 Test Item Value Reference Range Interpretation [...] DIALYSIS PATIEN TS. Specimen slightly ictericHEPATIC FUNCTION [id number] 07:37:00 Test Item Value Reference Range Interpretation [...] 35 U/L 6-55 347) Specimen slightly ictericPROTHROMBIN TIME/[id number] 06:25:00 Test Item Value Reference Range Interpretation [...] mechanical heart valves.CBC W/PLT COUNT & AUTO [id number] 06:16:00 Test Item Value Reference Range Interpretation [...] = 3438) Received comment: User comments: Slide comments:[id number] 05:58:00 Test Item Value Reference Range Interpretation Comments MAGNESIUM (BEAKER) (test code = 1.6 mg/dL 1.6-2.6 627) BASIC METABOLIC [id number] 05:58:00 Test Item Value Reference Range Interpretation [...] DIALYSIS PATIEN TS. Specimen slightly ictericHEPATIC FUNCTION [id number] 05:58:00 Test Item Value Reference Range Interpretation [...] 39 U/L 6-55 347) Specimen slightly ictericPROTHROMBIN TIME/[id number] 05:26:00 Test Item Value Reference Range Interpretation [...] mechanical heart valves.CBC W/PLT COUNT & AUTO [id number] 05:20:00 Test Item Value Reference Range Interpretation [...] WBC 0-0 (test code = 413) VITAMIN [id number] 06:57:00 Test Item Value Reference Range Interpretation Comments VITAMIN B12 (BEAKER) (test code = 178 pg/mL 213-816 L 774) [id number] 06:57:00 Test Item Value Reference Range Interpretation Comments FERRITIN (BEAKER) (test code = 361) 21 ng/mL 5-275 FOLATE, [id number] 06:57:00 Test Item Value Reference Range Interpretation [...] 28 % 20-55 (test code = 2590) [id number] 05:59:00 Test Item Value Reference Range Interpretation Comments MAGNESIUM (BEAKER) (test code = 1.7 mg/dL 1.6-2.6 627) BASIC METABOLIC [id number] 05:59:00 Test Item Value Reference Range Interpretation [...] 697) EGFR (BEAKER) (test 99 mL/min/1.73 ESTIMA JOSEMANULE GFR IS code = 1092) sq m NOT ACCURATE CREATININE CLEARANCE IN PREDICTING GLOMERULAR FILTRATION RATE . ESTIMATED GFR I S NOT APPLICABLE FOR DIALYSIS PATIEN TS. Specimen slightly ictericLIPID [id number] 05:59:00 Test Item Value Reference Range Interpretation [...] Very High >=190 Specimen slightly ictericHEPATIC FUNCTION [id number] 05:59:00 Test Item Value Reference Range Interpretation [...] = 41 U/L 6-55 347) Specimen slightly [id number] 05:59:00 Test Item Value Reference Range Interpretation Comments LIPASE (BEAKER) (test code = 749) 35 U/L 8-78 Specimen slightly ictericPROTHROMBIN TIME/[id number] 05:58:00 Test Item Value Reference Range Interpretation [...] mechanical heart valves.CBC W/PLT COUNT & AUTO [id number] 05:37:00 Test Item Value Reference Range Interpretation [...] code = 416) BASOPHILS ABSOLUTE COUNT ([facility]) 0.02 K/ L 0.01-0.08 (test code = 417) IMMATURE GRANULOCYTES-RELATIVE 0 % 0-1 PERCENT ([facility]) (test code = 2801) POCT-HEMOGLOBIN [id number] 06:12:00 Test Item Value Reference Range Interpretation Comments POC-HEMOGLOBIN METER 8.6 g/dL 12.0-15.[address] [facility] [address] ([facility]) (test code = [place] [address] 1539)"
--- NOTE | 2021-07-05 15:49 | RAD REPORT ---
EXAM DESCRIPTION: Igor Single View07/05/2021 3:41 pm CLINICAL HISTORY: cough COMPARISON: 2020 FINDINGS: Upper lobe vessels prompted of pulmonary venous hypertension. The lungs appear clear of acute infiltrate. The heart is borderline enlarged
--- NOTE | 2021-07-05 15:55 | RAD REPORT ---
EXAM DESCRIPTION: USExtrem Venous W Compress Bil07/05/2021 3:47 pm CLINICAL HISTORY: Bilateral leg pain COMPARISON: 2020 FINDINGS: The common femoral, superficial femoral, popliteal and posterior tibial veins bilaterally are compressible and demonstrate augmentation. Doppler demonstrates good flow. Grayscale, color and spectral analysis performed on all vessels IMPRESSION: No evidence of deep venous thrombosis involving either lower extremity.
[2021-07-05 16:12] LABS: Absolute Lymphocytes (CBC) 0.6 K/uL (0.7-4.9); Hematocrit 30.8 % (36.0-45.0); Lymphocytes % 23.2 % (15.3-44.8); MPV 7.4 fL (7.6-11.3); RBC Red Blood Cell Count 3.44 M/uL (3.86-4.86)
[2021-07-05 16:19] LABS: Protime INR 1.25
[2021-07-05 16:30] LABS: BUN Blood Urea Nitrogen 6 mg/dL (7-18); Bicarbonate 28 mmol/L (21-32); Glucose Level 102 mg/dL (74-106); Magnesium 1.8 mg/dL (1.8-2.4); NT PRO-BNP 31 pg/mL (<125); Potassium 3.7 mmol/L (3.5-5.1); Sodium Level 141 mmol/L (136-145); Troponin High Sensitivity 10.2 pg/mL (<58.9)
--- NOTE | 2021-07-05 16:35 | ER ---
Nurse's Notes [facility] Name: Zenaida Goss Age: 61 yrs Sex: Female : 1960 Arrival Date: 07/05/2021 Time: 14:07 Bed 14 Private MD: Diagnosis: Unspecified cirrhosis of liver;Edema, unspecified Presentation: 07/05 14:18 Chief complaint: Patient states: "My feet started swelling real bad 2 days ago and they ab2 hurt. Im also so cold.". Chief complaint:. Coronavirus screen: Vaccine status: Patient reports receiving the 2nd dose of the covid vaccine. Client denies travel out of the [place] in the last 14 days. At this time, the client does not indicate any symptoms associated with coronavirus-19. Ebola Screen: Patient negative for fever greater than or equal to 101.5 degrees Fahrenheit, and additional compatible Ebola Virus Disease symptoms Patient denies exposure to infectious person. Patient denies travel to an Ebola-affected area in the 21 days before illness onset. No symptoms or risks identified at this time. Initial Sepsis Screen: Does the patient meet any 2 criteria? No. Patient's initial sepsis screen is negative. Does the patient have a suspected source of infection? No. Patient's initial sepsis screen is negative. Risk Assessment: Do you want to hurt yourself or someone else? Patient reports no desire to harm self or others. Onset of symptoms is unknown. 14:18 Method Of Arrival: Wheelchair ab2 14:18 Acuity: TANK 3 ab2 Triage Assessment: 14:20 General: Appears in no apparent distress. uncomfortable, Behavior is calm, cooperative, ab2 appropriate for age. Pain: Complains of pain in right foot and left foot Pain does not radiate. Pain currently is 9 out of 10 on a pain scale. Musculoskeletal: Reports Swelling. Historical: - Allergies: 14:20 Dilaudid; ab2 14:20 Morphine (Anaphylaxis); ab2 - PMHx: 14:20 Anemia; breast cancer; Cirrhosis; fatty liver; Pancreatitis; varices; ab2 - PSHx: 14:20 Appendectomy; Cholecystectomy; Lumpectomy of breast; Total abdominal hysterectomy; ab2 - Immunization history:: Adult Immunizations up to date. - Social history:: Smoking status: Patient denies any tobacco usage or history of. - Family history:: not pertinent. Screenin:30 Abuse screen: Denies threats or abuse. Denies injuries from another. Nutritional bp screening: No deficits noted. Tuberculosis screening: No symptoms or risk factors identified. Fall Risk None identified. Assessment: 14:30 General: SEE TRIAGE NOTE. bp 17:00 Reassessment: PT D/C HOME AMBULATORY, DX WITH CIRRHOSIS. bp Vital Signs: 14:18 BP 117 / 58; Pulse 89; Resp 17; Temp 98.1; Pulse Ox 99% on R/A; Weight 122.47 kg; ab2 Height 5 ft. 4 in. (162.56 cm); Pain 9/10; 16:30 BP 102 / 68; Pulse 89; Resp 16; Pulse Ox 97% ; bp 14:18 Body Mass Index 46.34 (122.47 kg, 162.56 cm) ab2 ED Course: 14:07 Patient arrived in ED. ds1 14:20 Triage completed. ab2 14:21 Arm band placed on right wrist. ab2 14:30 Patient has correct armband on for positive identification. Bed in low position. Call bp light in reach. Side rails up X2. 14:30 No provider procedures requiring assistance completed. Patient did not have IV access bp during this emergency room visit. 14:35 Zev Burrell, ERIC is Primary Nurse. bp 14:42 Homero Terrell MD is Attending Physician. vicente 15:43 XRAY Chest (1 view) In Process Unspecified. EDMS 15:49 US Extremity Venous W Compression Tim[place] In Process Unspecified. EDMS 16:34 Dionne Zhao MD is Referral Physician. vicente Administered Medications: 16:30 Drug: Spironolactone 25 mg Route: PO; bp 17:02 Follow up: Response: No adverse reaction bp 16:30 Drug: ProTONIX (pantoprazole) 40 mg Route: PO; bp 17:02 Follow up: Response: No adverse reaction bp 16:30 Drug: Lactulose 30 grams Volume: 45 ml; Route: PO; bp 17:02 Follow up: Response: No adverse reaction bp 16:30 Drug: LaSIX (furosemide) 40 mg Route: PO; bp 17:02 Follow up: Response: No adverse reaction bp 16:32 CANCELLED (Duplicate Order): Lasix (furosemide) 20 mg IVP once; give over 2 minutes vicente Outcome: 14:30 Discharged to home ambulatory. bp 14:30 Condition: stable 14:30 Discharge instructions given to patient, Instructed on discharge instructions, follow up and referral plans. medication usage, Demonstrated understanding of instructions, follow-up care, medications, Prescriptions given X 4. 16:34 Discharge ordered by . vicente 17:11 Patient left the ED. bp Signatures: Dispatcher [employer] EDNV Homero Terrell MD MD cha Sanford, Demi ds1 Zev Burrell, RN RN bp ConyiningerFrancisco ab2
--- NOTE | 2021-07-05 16:35 | EDPHYS ---
Physician Documentation [facility] Name: Zenaida Goss Age: 61 yrs Sex: Female : 1960 Arrival Date: 07/05/2021 Time: 14:07 Bed 14 Private MD: ED Physician Homero Terrell HPI: 07/05 15:43 This 61 yrs old Female presents to ER via Wheelchair with complaints of Leg vicente Swelling. 15:43 The patient presents with swelling. The complaints affect the right leg and left leg. vicente Context: The problem was sustained at an unknown site. Onset: The symptoms/episode began/occurred 2 week(s) ago. Modifying factors: The symptoms are alleviated by elevating leg, remaining still, the symptoms are aggravated by movement, weight bearing. Associated signs and symptoms: Pertinent positives: calf tenderness. Severity of symptoms: At their worst the symptoms were mild, in the emergency department the symptoms are unchanged. The patient has experienced similar episodes in the past, multiple times. Historical: - Allergies: 14:20 Dilaudid; ab2 14:20 Morphine (Anaphylaxis); ab2 - PMHx: 14:20 Anemia; breast cancer; Cirrhosis; fatty liver; Pancreatitis; varices; ab2 - PSHx: 14:20 Appendectomy; Cholecystectomy; Lumpectomy of breast; Total abdominal hysterectomy; ab2 - Immunization history:: Adult Immunizations up to date. - Social history:: Smoking status: Patient denies any tobacco usage or history of. - Family history:: not pertinent. ROS: 15:43 Constitutional: Negative for fever, chills, and weight loss, Eyes: Negative for injury, vicente pain, redness, and discharge, ENT: Negative for injury, pain, and discharge, Neck: Negative for injury, pain, and swelling, Cardiovascular: Negative for chest pain, palpitations, and edema, Respiratory: Negative for shortness of breath, cough, wheezing, and pleuritic chest pain, Abdomen/GI: Negative for abdominal pain, nausea, vomiting, diarrhea, and constipation, Back: Negative for injury and pain, : Negative for injury, bleeding, discharge, and swelling, Skin: Negative for injury, rash, and discoloration, Neuro: Negative for headache, weakness, numbness, tingling, and seizure, Psych: Negative for depression, anxiety, suicide ideation, homicidal ideation, and hallucinations, Allergy/Immunology: Negative for hives, rash, and allergies, Endocrine: Negative for neck swelling, polydipsia, polyuria, polyphagia, and marked weight changes, Hematologic/Lymphatic: Negative for swollen nodes, abnormal bleeding, and unusual bruising. 15:43 MS/extremity: Positive for swelling, of the right leg and left leg. Exam: 15:43 Constitutional: This is a well developed, well nourished patient who is awake, alert, vicente and in no acute distress. Head/Face: Normocephalic, atraumatic. Eyes: Pupils equal round and reactive to light, extra-ocular motions intact. Lids and lashes normal. Conjunctiva and sclera are non-icteric and not injected. Cornea within normal limits. Periorbital areas with no swelling, redness, or edema. ENT: Nares patent. No nasal discharge, no septal abnormalities noted. Tympanic membranes are normal and external auditory canals are clear. Oropharynx with no redness, swelling, or masses, exudates, or evidence of obstruction, uvula midline. Mucous membranes moist. Neck: Trachea midline, no thyromegaly or masses palpated, and no cervical lymphadenopathy. Supple, full range of motion without nuchal rigidity, or vertebral point tenderness. No Meningismus. Chest/axilla: Normal chest wall appearance and motion. Nontender with no deformity. No lesions are appreciated. Cardiovascular: Regular rate and rhythm with a normal S1 and S2. No gallops, murmurs, or rubs. Normal PMI, no JVD. No pulse deficits. Respiratory: Lungs have equal breath sounds bilaterally, clear to auscultation and percussion. No rales, rhonchi or wheezes noted. No increased work of breathing, no retractions or nasal flaring. Abdomen/GI: Soft, non-tender, with normal bowel sounds. No distension or tympany. No guarding or rebound. No evidence of tenderness throughout. Back: No spinal tenderness. No costovertebral tenderness. Full range of motion. Female : Normal external genitalia. Skin: Warm, dry with normal turgor. Normal color with no rashes, no lesions, and no evidence of cellulitis. Neuro: Awake and alert, GCS 15, oriented to person, place, time, and situation. Cranial nerves II-XII grossly intact. Motor strength 5/5 in all extremities. Sensory grossly intact. Cerebellar exam normal. Normal gait. Psych: Awake, alert, with orientation to person, place and time. Behavior, mood, and affect are within normal limits. 15:43 Musculoskeletal/extremity: Extremities: grossly normal except: noted in the right leg and left leg: pain, swelling, ROM: full active range of motion, full passive range of motion, Circulation is intact in all extremities. Sensation intact. Compartment Syndrome exam of affected extremity: is normal. DVT Exam: negative Homans' sign noted on exam, no appreciated bluish discoloration, no erythema, no increased warmth, pain, swelling, tenderness. 15:58 ECG was reviewed by the Attending Physician. [facility] Vital Signs: 14:18 BP 117 / 58; Pulse 89; Resp 17; Temp 98.1; Pulse Ox 99% on R/A; Weight 122.47 kg; ab2 Height 5 ft. 4 in. (162.56 cm); Pain 9/10; 16:30 BP 102 / 68; Pulse 89; Resp 16; Pulse Ox 97% ; bp 14:18 Body Mass Index 46.34 (122.47 kg, 162.56 cm) ab2 MDM: 14:42 Patient medically screened. vicente 15:52 Differential diagnosis: contusion, tendonitis. Data reviewed: vital signs, nurses [facility] notes, lab test result(s), EKG, radiologic studies, doppler, plain films. Data interpreted: physicist acoustics: rate is 89 beats/min, rhythm is regular, Pulse oximetry: on room air is 99 %. Test interpretation: by ED physician or midlevel provider: ECG, plain radiologic studies. Counseling: I had a detailed discussion with the patient and/or guardian regarding: the historical points, exam findings, and any diagnostic results supporting the discharge/admit diagnosis, lab results, radiology results, the need for outpatient follow up, for definitive care, a family practitioner, a glycerin supervisor. 07/05 14:43 Order name: Basic Metabolic Panel; Complete Time: 16:32 [facility] 07/05 14:43 Order name: CBC with Diff [facility] 07/05 14:43 Order name: Magnesium; Complete Time: 16:32 [facility] 07/05 14:43 Order name: NT PRO-BNP; Complete Time: 16:32 vicente 07/05 14:43 Order name: PT-INR; Complete Time: 16:26 [facility] 07/05 14:43 Order name: Troponin HS; Complete Time: 16:32 [facility] 07/05 14:43 Order name: XRAY Chest (1 view); Complete Time: 16:14 [facility] 07/05 14:43 Order name: US Extremity Venous W Compression Timbo; Complete Time: 16:14 [facility] 07/05 15:24 Order name: AMMONIA; Complete Time: 16:26 [facility] 07/05 14:43 Order name: EKG; Complete Time: 14:44 [facility] 07/05 14:43 Order name: Cardiac monitoring; Complete Time: 17:01 [facility] 07/05 14:43 Order name: EKG - Nurse/Tech; Complete Time: 17:01 [facility] 07/05 14:43 Order name: Labs collected and sent; Complete Time: 16:18 [facility] 07/05 14:43 Order name: O2 Per Protocol; Complete Time: 15:33 [facility] 07/05 14:43 Order name: O2 Sat Monitoring; Complete Time: 15:33 [facility] 07/05 14:44 Order name: Urine Dipstick-Ancillary (obtain specimen); Complete Time: 15:31 [facility] EC:58 Rate is 85 beats/min. Rhythm is regular. QRS [place] is Normal. NE interval is normal. QRS vicente interval is normal. QT interval is normal. No Q waves. T waves are Normal. No ST changes noted. Clinical impression: NSR w/ Non-specific ST/T Changes and No evidence of ischemia. Interpreted by me. Reviewed by me. Administered Medications: 16:30 Drug: Spironolactone 25 mg Route: PO; bp 17:02 Follow up: Response: No adverse reaction bp 16:30 Drug: ProTONIX (pantoprazole) 40 mg Route: PO; bp 17:02 Follow up: Response: No adverse reaction bp 16:30 Drug: Lactulose 30 grams Volume: 45 ml; Route: PO; bp 17:02 Follow up: Response: No adverse reaction bp 16:30 Drug: LaSIX (furosemide) 40 mg Route: PO; bp 17:02 Follow up: Response: No adverse reaction bp 16:32 CANCELLED (Duplicate Order): Lasix (furosemide) 20 mg IVP once; give over 2 minutes vicente Disposition Summary: 07/05/21 16:34 Discharge Ordered Location: Home vicente Problem: new vicente Symptoms: have improved vicente Condition: Stable vicente Diagnosis - Unspecified cirrhosis of liver vicente - Edema, unspecified vicente Followup: vicente - With: Private Physician - When: 2 - 3 days - Reason: Recheck today's complaints, Continuance of care, Re-evaluation by your physician Followup: vicente - With: - When: 2 - 3 days - Reason: Recheck today's complaints, Re-evaluation by your physician Discharge Instructions: - Discharge Summary Sheet vicente - Cirrhosis vicente - Edema vicente - Fatty Liver Disease vicente - Edema, [id number] vicente - Peripheral Edema vicente - Nonalcoholic Fatty Liver Disease Diet, Adult [facility] Forms: - Medication Reconciliation Form [facility] - Thank You Letter [facility] - Antibiotic Education vicente - Prescription Opioid Use [facility] Prescriptions: - Protonix 40 mg Oral Tablet - take 1 tablet by ORAL route once daily; 30 tablet; Refills: 0, Product vicente Selection Permitted - Lasix 20 mg Oral Tablet - take 1 tablet by ORAL route once daily; 20 tablet; Refills: 0, Product vicente Selection Permitted - Lactulose 10 gram/15 mL Oral Solution - take 30 milliliters by ORAL route once daily; 300 milliliter; Refills: 0, vicente Product Selection Permitted - Spironolactone 25 mg Oral Tablet - take 1 tablet by ORAL route every 12 hours; 40 tablet; Refills: 0, Product vicente Selection Permitted Signatures: Dispatcher [employer] EDHomero Padilla MD MD cha Peltier, Brian RN RN Francisco Yuan2 Corrections: (The following items were deleted from the chart) 16:32 15:43 Lasix (furosemide) 20 mg IVP once; give over 2 minutes ordered. vicente zhang 17:02 14:43 IV Saline Lock ordered. vicente bp
[2021-07-05] MEDS ORDERED: LACTULOSE 20 GM/30 ML UCUP ONE (16:43)
[2021-07-05] MEDS ORDERED: PANTOPRAZOLE 40MG TABLET PO ONE (16:43)
[2021-07-05] MEDS ORDERED: FUROSEMIDE 40 MG TABLET ONE (16:43)
[2021-07-05] MEDS ORDERED: SPIRONOLACTONE 25 MG TABLET ONE (16:45)
[2021-07-05 17:15] VITALS: TEMP 98.1
[2021-07-05 17:16] VITALS: BP 102/68; O2SAT 97
[2021-07-05 18:33] LABS: Blood Morphology Comment NOT SEEN (NOT SEEN); Platelet Estimate DECR; White Blood Cell Scan OK (OK)
--- NOTE | 2021-07-06 09:27 | EKG ---
Test Date: 2021-07-05 Test Time: 15:13:45 Interactive Multimedia Designer: LAWRENCE MEASUREMENT RESULTS: Intervals: Rate: 85 ND: 146 QRSD: 144 QT: 460 QTc: 547 Pisek: P: 55 ND: 146 QRS: 87 T: 17 INTERPRETIVE STATEMENTS: Normal sinus rhythm Right bundle branch block Abnormal ECG Compared to ECG 01/01/2021 04:05:20 No significant changes Electronically Signed On 07-06-21 09:25:47 CDT by Miguel Crenshaw
== END 2021-07-05 17:11 | disposition home or self-care (01) ==
LOC: ER 14:04
DX: R60.9 Edema, unspecified (principal); K74.60 Unspecified cirrhosis of liver; Z88.6 Allergy status to analgesic agent; Z85.3 Personal history of malignant neoplasm of breast; K85.90 Acute pancreatitis without necrosis or infection, unspecified
CPT/HCPCS: 36415; 71045; 80048; 82140; 83735; 83880; 84484; 85025; 85610; 93005; 93970; 99283

== ENCOUNTER 2021-08-05 09:25 | Day surgery (SDC) | payer OTHER ==
[2021-08-03 11:35] LABS: Absolute Lymphocytes (CBC) 0.6 K/uL (0.7-4.9); Hematocrit 31.5 % (36.0-45.0); Lymphocytes % 22.1 % (15.3-44.8); MPV 7.8 fL (7.6-11.3); RBC Red Blood Cell Count 3.53 M/uL (3.86-4.86)
[2021-08-03 11:43] LABS: BUN Blood Urea Nitrogen 15 mg/dL (7-18); Bicarbonate 25 mmol/L (21-32); Glucose Level 130 mg/dL (74-106); Sodium Level 142 mmol/L (136-145)
[2021-08-03 11:46] LABS: Protime INR 1.21
[2021-08-03 14:25] LABS: Platelet Estimate DECR
[2021-08-03 14:26] LABS: Blood Morphology Comment NOT SEEN (NOT SEEN)
[2021-08-05] MEDS ORDERED: Ringers Lactate 1,000 ML IV ONE (09:51)
[2021-08-05] MEDS ORDERED: CEFAZOLIN/SWI 2gm 2 GM/20 ML SYR ONE (09:51)
[2021-08-05] MEDS ORDERED: FENTANYL CITR 100 MCG/2 ML ONE (10:09)
[2021-08-05] MEDS ORDERED: propofoL 200 MG/20 ML VIAL IV ONE (10:09)
[2021-08-05] MEDS ORDERED: LIDOCAINE 2% MPF 5 ML VIAL ONE (10:10)
[2021-08-05] MEDS ORDERED: ONDANSETRON 4 MG/2 ML VIAL ONE (10:12)
[2021-08-05] MEDS ORDERED: MIDAZOLAM HCL 2 MG/2 ML INJ ONE (11:32)
--- NOTE | 2021-08-05 12:51 | P.BOP ---
Preoperative diagnosis: right knee medial meniscus tear, chondromalacia medial femoral condyle Postoperative diagnosis: same Primary procedure: right knee arthroscopic partial medial meniscectomy Panel Edge Sealer: NONE,NONE Estimated blood loss: 5 cc Specimen: none Findings: see dictation Anesthesia: General Complications: None Implants: none Fluids & blood products: per anesthesia record; TT: 2 mins @ 300 mmHg Transferred to: Recovery Room Condition: Good
[2021-08-05] MEDS: FENTANYL CITR 100 MCG/2 ML ONE ×3 (12:54→13:11)
[2021-08-05] MEDS: MEPERIDINE HCL 25 MG/ML SYR ONE ×2 (13:28→13:35)
[2021-08-05] MEDS ORDERED: MEPERIDINE HCL 50 MG/ML ONE (13:56)
[2021-08-05 14:31] VITALS: BP 113/54; TEMP 97.8; O2SAT 94
== END 2021-08-05 14:55 | disposition home or self-care (01) ==
LOC: OR 09:25
PROVIDERS: ATTEND Orthopaedic Surgery Sports Medicine
PROC: 0SBC4ZZ Excision of Right Knee Joint, Percutaneous Endoscopic Approach (ICD-10-PCS; principal; 2021-08-05 11:00)
DX: S83.241A Other tear of medial meniscus, current injury, right knee, initial encounter (principal); M94.261 Chondromalacia, right knee; M25.561 Pain in right knee; M17.11 Unilateral primary osteoarthritis, right knee; K76.0 Fatty (change of) liver, not elsewhere classified; Z20.822 Contact with and (suspected) exposure to COVID-19
CPT/HCPCS: 85025; 80048; 36415 ×2; 85610; 85730 ×2; 29881; U0002; U0003; J2704; J2250; J3010 ×2; J2175 ×2; J0690; J7120; J2405

== ENCOUNTER 2021-08-11 21:20 | Emergency (ER) | payer OTHER ==
[2011-10-02 05:12] VITALS: BP 114/75
--- OUTSIDE RECORDS SUMMARY | 2021-08-11 21:26 | XMS REPORT | Continuity of Care Document ---
:1960 Author Organization [facility] t Address [address] [place] [address] [address]. [address] [place] [address] Care Team Providers Name Role Phone Sami HERNANDEZ Primary Care Physician Unavailable Ruth Attending Clinician Unavailable Harley Attending Clinician Unavailable [facility] Attending Clinician Unavailable José Manuel GREEN Attending Clinician Unavailable Beatriz GUARDIAN AD LITEM, F Attending Clinician Nancy REYES Attending Clinician [...] Date Expiration Date Deshawn blancas [facility] [id number] 2019 CHOICE 00:00:00 Problems Condition Condition Condition [...] Diagnosis Active [facility] osteoarthr osteoarthr Tir kes - itis of itis of Memoria [...] Quantity Comments Source Exposure to Not sure [facility] SARS-CoV-2 [facility] (event) Branch Alcohol intake 2021-04-02 2021-04-02 Ex-drinker [facility] 00:00:00 00:00:00 (finding) [facility] Tobacco use and 2016-08-07 2016-08-07 Never used Universit y of exposure 00:00:00 00:00:00 [facility] Sex [birth year] At [birth year] Universit y of 00:00:00 00:00:00 [facility] Smoking Status Start Date Stop Date Source Never smoker [facility] Medications Ordered Filled Start Stop [...] 04/02/21 at 1445, VERN ondansetron 2020-04 Yes [id number] 4mg Take 1 Univers 4 mg 2-23 tablet by ity of disintegrat 00:00: mouth [place] ing tablet 00 every 8 Medica l (eight) Branch hours as needed for Nausea and Vomiting (N/V). ondansetron 2020-04 Yes [id number] 4mg Take 1 Univers 4 mg 2-23 tablet by ity of disintegrat 00:00: mouth [place] ing tablet 00 every 8 Medica l (eight) Branch hours as needed for Nausea and Vomiting (N/V). cholecalcif 2020- No [id number] 1999U Take 2 Univers nuno, 6-26 07-27 tablets by ity of vitamin D3, 00:00: 04:59 [place] 25 [place] 00 :00 daily for Medical (1,000 30 days. Branch unit) tablet cyanocobala 2020- No [id number] 1000ug inject 1 Univers min 1,000 6-26 07-27 mL under ity o f mcg/mL 00:00: 04:59 the skin [place] injection 00 :00 every 24 Medica l (twenty-fo Branch ur) hours for 30 days. KCL 20 mEq 2020- No [id number] 20meq Take 1 Univers tablet 6-26 07-27 tablet by ity of 00:00: 04:59 mouth [place] 00 :00 daily for Medical 30 days. Branch cholecalcif 2020- No [id number] 1999U Take 2 Univers nuno, 6-26 07-27 tablets by ity of vitamin D3, 00:00: 04:59 [place] 25 mcg 00 :00 daily for Medical (1,000 30 days. Branch unit) tablet cyanocobala 2020- No [id number] 1000ug inject 1 Univers min 1,000 6-26 07-27 mL under ity o f mcg/mL 00:00: 04:59 the skin [place] injection 00 :00 every 24 Medica l (twenty-fo Branch ur) hours for 30 days. KCL 20 mEq 2020- No [id number] 20meq Take 1 Univers tablet 6 07-27 [...] ity o f mL oral 18:10: daily. [place] solution 25 Medical Branch pantoprazol Yes 40mg Take 40 mg Univers e 6-25 by mouth ity of (PROTONIX) 18:10: daily. [place] 40 mg EC 25 Medical tablet Branch [...] unresponsi ve to Ondansetro n proMETHazin Yes [id number] 12.5mg Take 1 Univers e 12.5 mg 6-25 tablet by ity o f tablet 00:00: mouth [place] 00 every 6 Medical (six) Branch hours as needed for Nausea and Vomiting (N/V) or N/V unresponsi ve to Ondansetro n. proMETHazin Yes [id number] 12.5mg Take 1 Univers e 12.5 mg 6-25 tablet by ity o f tablet 00:00: mouth [place] 00 every 6 Medical (six) Branch hours as needed for Nausea and Vomiting (N/V) or N/V unresponsi ve to Ondansetro n. proMETHazin Yes [id number] 12.5mg Take 1 Univers e 12.5 mg 6-25 tablet by ity o f tablet 00:00: mouth [place] 00 every 6 Medical (six) Branch hours as needed for Nausea and Vomiting (N/V) or N/V unresponsi ve to Ondansetro n. proMETHazin Yes [id number] 12.5mg Take 1 Univers e 12.5 mg 6-25 tablet by ity o f tablet 00:00: mouth [place] 00 every 6 Medical (six) Branch hours as needed for Nausea and Vomiting (N/V) or N/V unresponsi ve to Ondansetro n. proMETHazin Yes [id number] 12.5mg Take 1 Univers e 12.5 mg 6-25 tablet by ity o f tablet 00:00: mouth [place] 00 every 6 Medical (six) Branch hours as needed for Nausea and Vomiting (N/V) or N/V unresponsi ve to Ondansetro n. proMETHazin Yes [id number] 12.5mg Take 1 Univers e 12.5 mg 6-25 tablet by ity o f tablet 00:00: mouth [place] 00 every 6 Medical (six) Branch hours as needed for Nausea and Vomiting (N/V) or N/V unresponsi ve to Ondansetro n. proMETHazin Yes [id number] 12.5mg Take 1 Univers e 12.5 mg 6-25 tablet by ity o f tablet 00:00: mouth [place] 00 every 6 Medical (six) Branch hours as needed for Nausea and Vomiting (N/V) or N/V unresponsi ve to Ondansetro n. furosemide 2020- No [id number] 40mg Take 1 Univers 40 mg 6-25 07-26 tablet by ity of tablet 00:00: 04:59 mouth [place] 00 :00 every Medical morning Branch and evening for 30 days. lipase-prot 2020- No [id number] 2{capsu Take 2 Univers ease-amylas 6-25 07-26 le} capsules ity of e 00:00: 04:59 by mouth 3 [place] 12,000-38,0 00 :00 (three) Medic al 00 -60,000 times Branch unit daily with capsule meals for 30 days. lactobacill 2020- No [id number] .5mg Take 1 Univers us 6-25 07-26 tablet by ity of acidophilus 00:00: 04:59 mouth 2 [place] 00 :00 (two) Medical times Branch daily for 30 days. furosemide 2020- No [id number] 40mg Take 1 Univers 40 mg 6-25 07-26 tablet by ity of tablet 00:00: 04:59 mouth [place] 00 :00 every Medical morning Branch and evening for 30 days. lipase-prot 2020- No [id number] 2{capsu Take 2 Univers ease-amylas 6-25 07-26 le} capsules ity of e 00:00: 04:59 by mouth 3 [place] 12,000-38,0 00 :00 (three) Medic al 00 -60,000 times Branch unit daily with capsule meals for 30 days. lactobacill 2020- No [id number] .5mg Take 1 Univers us 6-25 07-26 tablet by ity of acidophilus 00:00: 04:59 mouth 2 [place] 00 :00 (two) Medical times Branch daily for 30 days. vancomycin 2020- No [id number] 125mg Take 1 Univers 125 mg 6-25 07-06 capsule by ity of capsule 00:00: 04:59 mouth 4 [place] 00 :00 (four) Medical times Branch daily for 10 days. vancomycin 2020- No [id number] 125mg Take 1 Univers 125 mg 6-25 [...] Indication s: acute pain cephALEXin 2020- No [id number] 500mg Take 1 Univers 500 mg 10-03 capsule by ity of capsule 00:00: 04:59 mouth 4 [place] 00 :00 (four) Medical times Branch daily for 5 days. cephALEXin 2020- No [id number] 500mg Take 1 Univers 500 mg 10-03 [...] QHSPRN, [place] mg 57 Starting Medical [facility] Branch 09/29/20 at 2251, Until Discontinu [...] 09-29 Units, ity of (vitamin 20:00: Oral, [place] D3) tablet 00 DAILY, Medical 2,000 Units First dose Br anch on [facility] 09/29/20 at 1500, Until Discontinu ed, Routine lactobacill Yes .5mg 0.5 mg, Uni vers us 09-29 Oral, BID, ity of acidophilus 14:15: First dose [place] tablet 0.5 00 on [facility] Medical mg 09/29/20 at Branch 0915, Until Discontinu ed, Routine KCL Yes 20meq 20 mEq, Univers (KLOR-CON 09-29 Oral, ity of M20) tablet 14:00: DAILY, [place] 20 mEq 00 First dose Medical (after Branch last reorder) on [facility] 09/29/20 at 0900, Until Discontinu ed, Routine lipase-prot 0 Yes 2{capsu 2 capsule, Univers ease-amylas 09-29 le} Oral, TID ity of e (CREON) 08:45: MEALS, [place] 12,000-38,0 00 First dose Me dical 00 -60,000 on [facility] Branch unit 09/29/20 at capsule 2 [...] :00 s, ONCE, 1 Medic al dose, [facility] 09/29/20 at 0245, Routine FENTanyl PF 2020- No 50ug 50 mcg, Un marline (SUBLIMAZE 09-29 Slow IV ity o f (PF)) 07:30: 06:27 Push, [place] injection 00 :00 ONCE, 1 Medical 50 mcg dose, [facility] 09/29/20 at 0230, Routine piperacilli 2020- No 3.375g 3.375 g, Univers n-tazobacta 09-29 IV ity of m (ZOSYN) 07:30: 07:00 Piggyback, [place] 3.375 g in 00 :00 ONCE, 1 Medica l NaCl 0.9% dose, [facility] Branc h (NS) 100 mL 09/29/20 [...] injection 4 17 Starting Medi molly mg [facility] Branch 09/29/20 at 0142, Until Discontinu ed, Routine, Nausea and Vomiting (N/V) iopamidol 2020- No [id number] 100mL 100 mL, Univers (ISOVUE 09-29 Intravenou [...] for Pain (scale 4-6). acetaminoph 2020-0 Yes [id number] 1{tbl} Take 1 Univers en-codeine 5-02 tablet by ity of 300-30 mg 00:00: mouth [place] tablet 00 every 4 Medical (four) Branch hours as needed for Pain (scale 4-6). acetaminoph 2020-0 Yes [id number] 1{tbl} Take 1 Univers en-codeine 5-02 tablet by ity of 300-30 mg 00:00: mouth [place] tablet 00 every 4 Medical (four) Branch hours as needed for Pain (scale 4-6). acetaminoph 2020-0 Yes [id number] 1{tbl} Take 1 Univers en-codeine 5-02 tablet by ity of 300-30 mg 00:00: mouth [place] tablet 00 every 4 Medical (four) Branch hours as needed for Pain (scale 4-6). lactulose 2019-0 2020- No [id number] 30mL Take 30 mL Univers 10 gram/15 5- 06-02 by mouth 2 it y of mL oral 00:00: 04:59 (two) [place] solution 00 :00 times Medical daily for Branch 30 days. pantoprazol 2019-0 2020- No [id number] 40mg Take 1 Univers e 40 mg EC 5- 06- tablet by ity of tablet 00:00: 04:59 mouth [place] 00 :00 daily for Medical 30 days. Branch lactulose 2019-0 2020- No [id number] 30mL Take 30 mL Univers 10 gram/15 5-02 06-02 by mouth 2 it y of mL oral 00:00: 04:59 (two) [place] solution 00 :00 times Medical daily for Branch 30 days. pantoprazol 2019-0 2020- No [id number] 40mg Take 1 Univers e 40 mg EC 5-02 06-02 tablet by ity of tablet 00:00: 04:59 mouth [place] 00 :00 daily for Medical 30 days. Branch propranolol 2019-0 2020- No [id number] 10mg Take 1 Univers 10 mg 5- [...] Immunizations Ordered Filled Immunization Date Status Comments [facility] e Immunization Name Name Pneumococcal 2020-10-03 [...] Completed Unive rsity of MODERNA VACCINE 00:00:00 [facility] ical Branch SARS-COV-2 COVID-19 2020-08-08 Completed Unive rsity of MODERNA VACCINE 00:00:00 [place] [facility] ical Branch SARS-COV-2 COVID-19 2020-08-08 Completed Unive rsity of MODERNA VACCINE 00:00:00 [place] [facility] ical Branch SARS-COV-2 COVID-19 2020-08-08 Completed Unive rsity of MODERNA VACCINE 00:00:00 [place] [facility] ical Branch SARS-COV-2 COVID-19 2020-08-08 Completed Unive rsity of MODERNA VACCINE 00:00:00 [place] Med ical Branch SARS-COV-2 COVID-19 2020-08-08 Completed Unive rsity of MODERNA VACCINE 00:00:00 [facility] ical Branch SARS-COV-2 COVID-19 2020-08-08 Completed Unive rsity of MODERNA VACCINE 00:00:00 [facility] SARS-COV-2 COVID-19 2020-08-08 Completed Unive rsity of MODERNA VACCINE 00:00:00 [facility] SARS-COV-2 COVID-19 2020-07-11 Completed Unive rsity of MODERNA VACCINE 00:00:00 [facility] SARS-COV-2 COVID-19 2020-07-11 Completed Unive rsity of MODERNA VACCINE 00:00:00 [facility] SARS-COV-2 COVID-19 2020-07-11 Completed Unive rsity of MODERNA VACCINE 00:00:00 [facility] SARS-COV-2 COVID-19 2020-07-11 Completed Unive rsity of MODERNA VACCINE 00:00:00 [facility] SARS-COV-2 COVID-19 2020-07-11 Completed Unive rsity of MODERNA VACCINE 00:00:00 [facility] SARS-COV-2 COVID-19 2020-07-11 Completed Unive rsity of MODERNA VACCINE 00:00:00 [facility] SARS-COV-2 COVID-19 2020-07-11 Completed Unive rsity of MODERNA VACCINE 00:00:00 [facility] SARS-COV-2 COVID-19 2020-07-11 Completed Unive rsity of MODERNA VACCINE 00:00:00 [facility] Influenza Virus 2019-08-11 Completed Universit y of Vaccine Quad .5 mL 00:00:00 [facility] IM 6+ MO Branch Influenza Virus 2019-08-11 Completed Universit y of Vaccine [place] .5 mL 00:00:00 [place] [facility] IM 6+ MO Branch Influenza Virus 2019-08-11 Completed Universit y of Vaccine [place] .5 mL 00:00:00 [place] [facility] IM 6+ MO Branch Influenza Virus 2019-08-11 Completed Universit y of Vaccine [place] .5 mL 00:00:00 [place] [facility] IM 6+ MO Branch Influenza Virus 2019-08-11 Completed Universit y of Vaccine [place] .5 mL 00:00:00 [place] [facility] IM 6+ MO Branch Influenza Virus 2019-08-11 Completed Universit y of Vaccine [place] .5 mL 00:00:00 [place] [facility] IM 6+ MO Branch Influenza Virus 2019-08-11 Completed Universit y of Vaccine [place] .5 mL 00:00:00 [place] [facility] IM 6+ MO Branch Influenza Virus 2019-08-11 Completed Universit y of Vaccine [place] .5 mL 00:00:00 [place] [facility] IM 6+ MO Branch Influenza Virus 2019-08-11 Completed Universit y of Vaccine [place] .5 mL 00:00:00 [place] [facility] IM 6+ MO Branch Influenza Virus 2019-08-11 Completed Universit y of Vaccine [place] .5 mL 00:00:00 [place] [facility] IM 6+ MO Branch Influenza Virus 2019-08-11 Completed Universit y of Vaccine [place] .5 mL 00:00:00 [facility] IM 6+ MO Branch Vital Signs Vital Name Observation Time Observation Value Comments Source Systolic blood 2021-04-02 18:55:00 138 mm[Hg] Univer sity of pressure [facility] Diastolic blood 2021-04-02 18:55:00 104 mm[Hg] Unive rsity of pressure [facility] Heart rate 2021-04-02 18:55:00 74 /min Universi ty [facility] [place] Body temperature 2021-04-02 18:55:00 36.78 [facility] Respiratory rate 2021-04-02 18:55:00 18 /min [facility] Body weight 2021-04-02 18:55:00 [facility] [place] BMI 2021-04-02 18:55:00 46.35 kg/m2 [facility] Oxygen saturation in 2021-04-02 18:55:00 97 /min [facility] Arterial blood by [facility] Pulse oximetry Branch Systolic blood 2020-10-03 17:23:00 132 mm[Hg] Univer sity of pressure [facility] Diastolic blood 2020-10-03 17:23:00 56 mm[Hg] Unive rsity of pressure [facility] Heart rate 2020-10-03 17:23:00 88 /min Universi ty [facility] [place] Body temperature 2020-10-03 17:23:00 36.94 [facility] Respiratory rate 2020-10-03 17:23:00 18 /min [facility] Oxygen saturation in 2020-10-03 17:23:00 94 /min University of Arterial blood by [facility] Pulse oximetry Branch Body weight 2020-09-30 08:11:00 121.473 kg Universi ty of [place] [facility] BMI 2020-09-30 08:11:00 47.44 kg/m2 Universi ty of [place] [facility] Body height 2020-09-29 03:33:00 160 cm Universi ty of [place] [facility] Diastolic blood 2019-08-11 20:04:00 44 mm[Hg] Unive rsity of pressure [place] [facility] Heart rate 2019-08-11 20:04:00 70 /min Universi ty of [place] [facility] Body temperature 2019-08-11 20:04:00 36.61 Sandee Univ ersity of [place] [facility] Respiratory rate 2019-08-11 20:04:00 18 /min Univ ersity of [place] [facility] Oxygen saturation in 2019-08-11 20:04:00 91 /min University of Arterial blood by [facility] Pulse oximetry Branch Systolic blood 2019-08-11 20:04:00 107 mm[Hg] Univer sity of [facility] Body height 2019-08-10 08:01:00 162.6 cm Universi ty of [place] [facility] Body weight 2019-08-10 08:01:00 119.296 kg Universi ty of [place] [facility] BMI 2019-08-10 08:01:00 45.14 kg/m2 Universi ty of [place] [facility] Diastolic blood 2019-08-11 20:04:00 44 mm[Hg] Unive rsity of pressure [place] [facility] Heart rate 2019-08-11 20:04:00 70 /min Universi ty of [place] [facility] Body temperature 2019-08-11 20:04:00 36.61 Sandee Univ ersity of [place] [facility] Respiratory rate 2019-08-11 20:04:00 18 /min Univ ersity of [place] [facility] Oxygen saturation in 2019-08-11 20:04:00 91 /min University of Arterial blood by [facility] Pulse oximetry Branch Systolic blood 2019-08-11 20:04:00 107 mm[Hg] Univer sity of pressure [place] [facility] [place] Body height 2019-08-10 08:01:00 162.6 cm Universi ty of [place] [facility] Body weight 2019-08-10 08:01:00 119.296 kg Universi ty of [place] [facility] BMI 2019-08-10 08:01:00 45.14 kg/m2 [facility] Procedures Procedure Date / Time Performing Clinician Source Performed XR KNEE 3 VW LEFT 2021-04-02 20:10:39 Kinsey Green [facility] CONSENT/REFUSAL FOR 2021-04-02 17:59:31 Doctor Unassigned, [facility] DIAGNOSIS AND TREATMENT [place] [facility] [place] ASSIGNMENT OF BENEFITS 2021-03-10 20:29:46 Doctor Unassigned, [facility] [place] [facility] PHOSPHORUS 2020-10-03 08:52:00 Brenda Teixeira [facility] MAGNESIUM 2020-10-03 08:52:00 Puneet [facility] COMP. METABOLIC PANEL 2020-10-03 08:52:00 Puneet [facility] ([id number]) [facility] CBC WITH DIFF 2020-10-03 08:52:00 Kim Teixeiraherine [facility] COMP. METABOLIC PANEL 2020-10-02 08:39:00 Kim Teixeiraherine [facility] ([id number]) [facility] CBC WITH DIFF 2020-10-02 08:39:00 Brenda Teixeira [facility] US DUPLEX VENOUS ARM LEFT 2020-10-01 16:22:58 Brenda Teixeira [facility] - BY VASCULAR LAB [facility] COMP. METABOLIC PANEL 2020-10-01 07:45:00 Tomasa Escamilla [facility] ([id number]) [facility] CBC WITH DIFF 2020-10-01 07:45:00 Al[place] [facility] TROPONIN I 2020-09-30 10:56:00 Marco Levy [facility] COMP. METABOLIC PANEL 2020-09-30 10:56:00 Millie sharad [facility] ([id number]) [facility] CBC WITH DIFF 2020-09-30 10:56:00 Shaina Brito [facility] N-TERMINAL PRO-BNP 2020-09-30 08:05:00 Shaina Brito [facility] OCCULT (GUAIAC) BLOOD 2020-09-30 02:10:00 Shaina Brito [facility] FECAL LEUKOCYTES 2020-09-30 02:10:00 Shaina Brito [facility] CLOSTRIDIUM DIFFICILE 2020-09-30 02:10:00 Shaina Brito [facility] FECAL PATHOGENS BY PCR 2020-09-30 02:10:00 Shaina Brito [facility] POCT GLUCOSE (AUTOMATED) 2020-09-30 00:35:00 Rene Evans [facility] BASIC METABOLIC PANEL 2020-09-29 21:11:00 Shaina Brito [facility] (NA, K, CL, CO2, GLUCOSE, Medica l Branch BUN, CREATININE, CA) HEMOGLOBIN 2020-09-29 21:11:00 [facility] Tomasa [facility] TRANSTHORACIC ECHO (TTE) 2020-09-29 16:03:00 Marco Levy [facility] HB ECG ROUTINE & RHYTHM 2020-09-29 11:18:58 Shaina Brito [facility] OSMOLALITY URINE 2020-09-29 08:56:00 Millie sharad [facility] URINE CULTURE 2020-09-29 08:56:00 Millie sharad [facility] SODIUM, URINE RANDOM 2020-09-29 08:56:00 Shaina Brito [facility] PROTEIN CREAT RATIO URINE 2020-09-29 08:56:00 Shaina Brito [facility] BLOOD CULTURE SCREEN 2020-09-29 08:32:00 Shaina Brito [facility] LACTIC ACID WHOLE BLOOD 2020-09-29 08:32:00 Shaina Brito [facility] VITAMIN B12, LEVEL 2020-09-29 08:31:00 Shaina Brito [facility] C-REACTIVE PROTEIN 2020-09-29 08:31:00 Millie sharad [facility] IRON PANEL 2020-09-29 08:31:00 Shaina Brito [facility] SEDIMENTATION RATE 2020-09-29 08:31:00 Shaina Brito [facility] DIFF CONSULT 2020-09-29 08:31:00 Millie [facility] Branch CBC WITH DIFF 2020-09-29 08:31:00 Millie sharad [facility] PROTHROMBIN TIME / INR 2020-09-29 08:31:00 Shaina Brito [facility] N-TERMINAL PRO-BNP 2020-09-29 08:31:00 Shaina Brito [facility] VITAMIN D, 25-OH 2020-09-29 08:31:00 Millie [facility] PROCALCITONIN 2020-09-29 08:31:00 Millie [facility] COVID-19 (ID NOW RAPID 2020-09-29 05:10:00 Rene Evans [facility] TESTING) Medical Branch LAB ONLY COVID 2020-09-29 05:10:00 Rene Evans [facility] INTERPRETATION [facility] CT ABDOMEN PELVIS W 2020-09-29 04:56:31 Rene Evans [facility] CONTRAST [facility] Branch URINALYSIS 2020-09-29 04:19:00 Rene Evans [facility] PHOSPHORUS 2020-09-29 03:54:00 Millie sharad [facility] CREATINE KINASE 2020-09-29 03:54:00 Millie [facility] URIC ACID 2020-09-29 03:54:00 Millie [facility] LIPASE 2020-09-29 03:54:00 Rene Evans [facility] MAGNESIUM 2020-09-29 03:54:00 Millie [facility] FERRITIN SERUM 2020-09-29 03:54:00 Millie [facility] TROPONIN I 2020-09-29 03:54:00 Marco Levy [facility] [place] THYROID STIMULATING 2020-09-29 03:54:00 Shaina Brito [facility] HORMONE [facility] Branch COMP. METABOLIC PANEL 2020-09-29 03:54:00 Rene Evans [facility] ([id number]) Medical [place] LIPID PANEL ([id number])(TOTAL 2020-09-29 03:54:00 Shaina Brito [facility] CHOLESTEROL, [facility] TRIGLYCERIDES, HDL) CBC WITH DIFF 2020-09-29 03:54:00 Rene Evans [facility] GLYCOSYLATED HEMOGLOBIN 2020-09-29 03:54:00 Millie sharad [facility] (A1C) [facility] N-TERMINAL PRO-BNP 2020-09-29 03:54:00 Shaina Brito [facility] CONSENT/REFUSAL FOR 2020-09-29 03:18:51 Doctor Unassigned, [facility] DIAGNOSIS AND TREATMENT [place] [facility] NOTICE OF PRIVACY 2020-09-29 03:18:30 Doctor Unassigned, [facility] PRACTICES [place] [facility] [place] CT ABDOMEN PELVIS W 2019-08-11 14:50:46 Corby Ca [facility] CONTRAST [facility] Branch COMP. METABOLIC PANEL 2019-08-11 08:00:00 Shaina Brito [facility] ([id number]) [facility] CBC WITH DIFFERENTIAL 2019-08-11 08:00:00 Shaina Brito [facility] CBC WITH DIFFERENTIAL 2019-08-11 08:00:00 Shaina Brito [facility] XR SMALL BOWEL SERIES 2019-08-10 21:18:47 Valente Piña [facility] XR ABDOMEN 1 VW 2019-08-10 11:52:39 Millie sharad [facility] PHOSPHORUS 2019-08-10 11:11:00 Millie [facility] CREATINE KINASE 2019-08-10 11:11:00 Millie sharad [facility] AMYLASE 2019-08-10 11:11:00 Millie [facility] LIPASE 2019-08-10 11:11:00 Shaina Brito [place] [facility] MAGNESIUM 2019-08-10 11:11:00 Shaina Brito [facility] TEST, SERUM 2019-08-10 11:11:00 Shaina Brito [facility] THYROID STIMULATING 2019-08-10 11:11:00 Shaina Brito [facility] HORMONE [facility] Branch COMP. METABOLIC PANEL 2019-08-10 11:11:00 Shaina Brito [facility] ([id number]) [facility] LIPID PANEL ([id number])(TOTAL 2019-08-10 11:11:00 Shaina Brito [facility] CHOLESTEROL, [facility] TRIGLYCERIDES, HDL) SEDIMENTATION RATE 2019-08-10 11:11:00 Shaina Brito [facility] CBC WITH DIFFERENTIAL 2019-08-10 11:11:00 Shaina Brito [facility] GLYCOSYLATED HEMOGLOBIN 2019-08-10 11:11:00 Shaina Brito [facility] (A1C) [facility] PROTHROMBIN TIME / INR 2019-08-10 11:11:00 Shaina Brito [facility] [facility] CORONAVIRUS COVID-19 2019-08-10 09:04:00 Shaina Brito [facility] TESTING [facility] Encounters Start End Encounter Admission Attending Care Care Encounter Source Date/Time Date/Time Type Type Clinicians Facility Department ID 2021-05-06 Outpatient Kattegummul [facility] [id number] [facility] 14:30:56 a, [facility]hu [facility] 2021-05-06 Outpatient Kattegummul STLMLC [facility] [id number] 14:26:04 a, Madhu 16671 [facility] 2021-05-06 Outpatient Kattegummul STLMLC [facility] [id number] 14:05:28 a, Madhu 67390 [facility] 2021-05-06 Outpatient Kattegummul [facility] [id number] 13:37:29 a, Madhu 38703 [facility] 2021-05-06 Outpatient Wilton, [facility] 13:36:02 Annalise 79132 [facility] 2021-05-06 Outpatient Harley, [facility] 11:25:36 Annalise 72171 [facility] 2021-02-09 Emergency [facility] [id number] Univers 02:25:27 ity [facility] 2021-04-07 2021-04-07 Letter Orthopedic [facility] 1.2.840.114 [id number] Univers 00:00:00 00:00:00 (Out) Clinic SPECIALTY 350.1.13.10 ity of [facility] 4.2.7.2.686 [facility] AT [phone] Ct mariacarol [address] 2021-04-02 2021-04-02 Emergency [facility] [id number] Univers 12:58:00 15:25:00 [facility] 2021-04-02 2021-04-02 Emergency [facility] 1.2.840.114 [id number] Univers 12:58:00 15:25:00 Kinsey WHITT 350.1.13.10 ity [facility] [place] [id number] [facility] [address] [place] 2021-03-11 2021-03-11 Telephone VERONIQUE Cruz 1.2.746.880 [id number] Univers 00:00:00 00:00:00 Frances SÁNCHEZ 350.1.13.10 it y of [facility] 4.2.7.2.686 Quang [id number] [facility] [address] 2021-03-10 2021-03-10 Outpatient R NETTIE [facility] [id number] Univers 14:45:00 14:51:40 LEXIE ity [facility] 2021-03-10 2021-03-10 Outpatient R [facility] [id number] -[id number] Univers 14:45:00 14:45:00 [id number] ity [facility] 2021-03-10 2021-03-10 Laboratory Only, Ang Db Test [facility] 1.2.8 40.114 [id number] Univers 14:29:53 14:44:53 Only Unknown, Attending HEALTH 350.1.13.10 ity of [place] 4.2.7.2.686 Quang as MARINA?BLEA [phone] Ct dical [address] MEDICAL OFFICE BUILDING 2021-03-10 2021-03-10 Orders Doctor VERONIQUE 1.2.840.114 [id number] Univers 00:00:00 00:00:00 Only Unassigned, GONZALO 350.1.13.10 ity of [place] [employer] [facility] 4.2.7.2.686 Quang as [phone] [facility] [address] 2021-02-18 2021-02-20 Inpatient JAIME, [facility] 017 [id number] 623 [facility] 00:00:00 00:00:00 CHERI 379 Method i 2021-02-03 2021-02-04 Emergency X [facility] ERT [id number] Univers 21:10:00 03:21:00 GARTH ity of [facility] 2020-10-21 2020-10-27 Inpatient SYLVIA, [facility] 064 [id number] 4019 [facility] 00:00:00 00:00:00 ROBERTH 980 Method i 2020-10-06 2020-10-06 Transition TaylorYelenali 1.2.840.114 [id number] Univers 00:00:00 00:00:00 of Care Madiha Sotelo 350.1.13.10 i ty of [place] [id number] [facility] [address] 2020-09-28 2020-10-03 [facility] Rene Evans [facility] 1.2.840. 114 [id number] Univers 22:23:00 13:05:00 Encounter Shaina Brito 350.1.13.10 ity of [place]2.[place] [id number] [facility] [address] 2020-09-28 2020-09-28 Orders Doctor PIPER 1.2.840.114 [id number] Univers 00:00:00 00:00:00 Only Unassigned, GONZALO 350.1.13.10 ity [facility] [place] [facility] 4.2.7.2.686 Quang as [phone] [address] 2020-09-09 2020-09-12 Inpatient VIKTOR BILLINGS [facility] 064 [id number] 74118 [facility] 00:00:00 00:00:00 462 Method i 2020-08-08 2020-08-08 Outpatient Sami GERMAN [facility] [id number] Univers 15:40:00 15:40:00 TERRI ity [facility] 2020-07-11 2020-07-11 Outpatient [facility] [id number] Univers 15:40:00 15:40:00 ity [facility] 2020-06-09 2020-06-22 Inpatient VIKTOR BILLINGS [facility] 064 [id number] 76253 [facility] 00:00:00 00:00:00 836 Method i 2020-03-19 2020-03-23 Inpatient DINAKAR, [facility] 057 [id number] 848 [facility] 00:00:00 00:00:00 CHERI 742 Method i 2020-03-14 2020-03-18 Inpatient DINAKAR, [facility] [id number] 585 [facility] 00:00:00 00:00:00 CHERI 157 Method i 2020-02-13 2020-02-13 Laboratory Lab, [facility] 1.2.840.114 [id number] 10:22:10 10:42:10 Only Fam Pob I Health 350.1.13.10 [place] 4.2.7.2.[phone] [facility] Office Building [facility] 2020-02-13 2020-02-13 Laboratory Lab, [facility] Fam Pob I [facility] 1.2. 840.114 [id number] [facility] 10:22:10 10:42:10 Only Dulce Mari A Health 350.1.13.10 ity of [place] 4.2.7.2.686 Quang as Professio [phone] Ct dical [address] Office Building One 2019-09-28 2019-09-28 Outpatient [facility] [id number] [facility] 09:00:00 09:00:00 t [facility] [place] [facility] 2019-09-18 2019-09-18 Outpatient Brazluciana Lopez [id number] 09:30:00 09:30:00 t [facility] 2019-08-14 2019-08-14 Transition Jocelyne Alexandra 1.2.840.114 [id number] 00:00:00 00:00:00 of Care Jovanny Souza [place] 350.1.13.10 [place] 4.2.7.2.686 [id number] 403 2019-08-14 2019-08-14 Transition Jocelyne Alexandra 1.2.840.114 [id number] Univers 00:00:00 00:00:00 of Care Jovanny Souza [place]otelo 350.1.13.10 ity of [place] 4[place]2.7.2.686 [place] [phone] [place] [address] [address] 2019-08-10 2019-08-11 [facility] 1.2.181.001 [id number] 02:55:00 16:09:00 Encounter Shaina Whitt 350.1.13.10 [place] 4.2.7.2.686 [place] [id number] [facility] 2019-08-10 2019-08-11 Inpatient U [facility] SHRUTI [id number] Univers 02:55:00 16:09:00 [facility] 2019-08-10 2019-08-11 [facility] 1.2.718.060 [id number] Univers 02:55:00 16:09:00 Encounter Shaina [place] 350.1.13.10 ity of [place] [phone] [address] Results Test Description Test Time Test Comments Results Result Comments Source MAGNESIUM 2020-10-03 09:34:08 Test Item Value Reference Range Interpretation Comme nts MAGNESIUM (test code = 9738967155) 1.4 mg/dL 1.7-2.4 L Lab Interpretation (test code = 73243-2) Abnormal [facility] ([id number])2020-10-03 09:33:48 Test Item Value Reference Range Interpretation Comments NA (test code = 136 mmol/L 135-145 3624831604) K (test code = 3.3 mmol/L 3.5-5.0 L 2832336967) CL (test code = 100 mmol/L 98-108 1087827579) CO2 TOTAL (test code = 33 mmol/L 23-31 H 5093820996) AGAP (test code = 2-16 0424484732) BUN (test code = 3 mg/dL 7-23 L 2003791660) GLUCOSE (test code = 95 mg/dL 70-110 5583551061) CREATININE (test code = 0.47 mg/dL 0.50-1.04 L 3300456922) TOTAL BILI (test code = 1.5 mg/dL 0.1-1.1 H 5455663690) CALCIUM (test code = 8.1 mg/dL 8.6-10.6 L 7584635108) T PROTEIN (test code = 5.9 g/dL 6.3-8.2 L 6308895748) ALBUMIN (test code = 2.9 g/dL 3.5-5.0 L 0397396640) ALK PHOS (test code = 115 U/L 34-122 3061480996) ALTv (test code = 24 U/L 5-35 1742-6) AST(SGOT) (test code = 35 U/L 13-40 0181654561) eGFR (test code = mL/min/1.73m2 7664390566) SNOW (test code = SNOW) Association of [...] tests). Lab Interpretation Abnormal (test code = 84952-8) [facility]2021-[facility]-25 09:33:28 Test Item Value Reference Range Interpretation Comments PHOSPHORUS (test code = 2259521377) 2.8 mg/dL 2.5-5.0 Lab Interpretation (test code = Normal 42247-4) [facility] WITH [id number] 09:31:46 Test Item Value Reference Range Interpretation [...] (test code = 53.8 fL 39.0-49.9 H 49718-6) RDW-CV (test code = 19.9 % 12.0-15.5 H 788-0) PLT (test code = See_Comment L [Automated 777-3) message] The sy stem which generated this result transmitted reference range : 166 - 358 10*3/ ?L. The reference r davi was not used to interpret this result as normal/abnormal . MPV (test code = 10.9 fL 9.5-12.9 80597-7) IPF % (test code = 3.6 % 1.3-7.7 Platelet count 2356258417) measured by fluorescence method. NRBC/100 WBC (test See_Comment [Automat ed code = 4235857548) message] The system which generated this result transmitted reference range : 0.0 - 10.0 /100 WBCs. The refer ence range was not u sed to interpret th is result as normal/abnormal . NRBC x10^3 (test code See_Comment [Auto mated = 3766772048) message] The s ystem which generated this result transmitted reference range : 10*3/?L. The reference range was not used to interpret this result as normal/abnormal . GRAN MAT (NEUT) % 68.1 % (test code = 770-8) IMM GRAN % (test code 1.10 % = 2109880271) LYMPH % (test code = 15.5 % 736-9) MONO % (test code = 11.3 % 5905-5) EOS % (test code = 3.4 % 713-8) BASO % (test code = 0.6 % 706-2) GRAN MAT x10^3(ANC) 2.42 10*3/uL 1.88-7.09 (test code = 5904470510) IMM GRAN x10^3 (test 0.04 10*3/uL 0.00-0.06 code = 7305195967) LYMPH x10^3 (test code 0.55 10*3/uL 1.32-3.29 L = 731-0) MONO x10^3 (test code 0.40 10*3/uL 0.33-0.92 = 742-7) EOS x10^3 (test code = 0.12 10*3/uL 0.03-0.39 711-2) BASO x10^3 (test code <0.03 0.01-0.07 = 704-7) Lab Interpretation Abnormal (test code = 18831-3) [facility] WITH [id number] 10:47:09 Test Item Value Reference Range Interpretation [...] (test code = 52.2 fL 39.0-49.9 H 70564-3) RDW-CV (test code = 18.6 % 12.0-15.5 H 788-0) PLT (test code = See_Comment L [Automated 777-3) message] The sy stem which generated this result transmitted reference range : 166 - 358 10*3/ ?L. The reference r davi was not used to interpret this result as normal/abnormal . MPV (test code = 10.1 fL 9.5-12.9 62302-7) IPF % (test code = 3.2 % 1.3-7.7 Platelet count 2466788494) measured by fluorescence method. NRBC/100 WBC (test See_Comment [Automat ed code = 1147692331) message] The system which generated this result transmitted reference range : 0.0 - 10.0 /100 WBCs. The refer ence range was not u sed to interpret th is result as normal/abnormal . NRBC x10^3 (test code See_Comment [Auto mated = 4849011636) message] The s ystem which generated this result transmitted reference range : 10*3/?L. The reference range was not used to interpret this result as normal/abnormal . GRAN MAT (NEUT) % 65.1 % (test code = 770-8) IMM GRAN % (test code 1.20 % = 5748568763) LYMPH % (test code = 16.9 % 736-9) MONO % (test code = 11.5 % 5905-5) EOS % (test code = 4.5 % 713-8) BASO % (test code = 0.8 % 706-2) GRAN MAT x10^3(ANC) 1.58 10*3/uL 1.88-7.09 L (test code = 4876702599) IMM GRAN x10^3 (test 0.03 10*3/uL 0.00-0.06 code = 2725347017) LYMPH x10^3 (test code 0.41 10*3/uL 1.32-3.29 L = 731-0) MONO x10^3 (test code 0.28 10*3/uL 0.33-0.92 L = 742-7) EOS x10^3 (test code = 0.11 10*3/uL 0.03-0.39 711-2) BASO x10^3 (test code <0.03 0.01-0.07 = 704-7) POLYCHROMASIA (test 2+ See_Comment [Automa josemanuel code = 83502-6) message] The system which generated this result transmitted reference range : 2+. The referen ce range was not u sed to interpret th is result as normal/abnormal . LG GRAN LYMPHS (test Rare Rare code = 0937434565) Lab Interpretation Abnormal (test code = 25070-5) [facility]. METABOLIC PANEL (52067)2020-10-02 10:19:28 Test Item Value Reference Range Interpretation Comments NA (test code = 135 mmol/L 135-145 9969143670) K (test code = 3.4 mmol/L 3.5-5.0 L 0579681393) CL (test code = 104 mmol/L 98-108 0061228799) CO2 TOTAL (test code = 27 mmol/L 23-31 9559452257) AGAP (test code = 2-16 7959764480) BUN (test code = 4 mg/dL 7-23 L 1429194565) GLUCOSE (test code = 97 mg/dL 70-110 2045916854) CREATININE (test code = 0.45 mg/dL 0.50-1.04 L 7729109334) TOTAL BILI (test code = 1.7 mg/dL 0.1-1.1 H 5825329841) CALCIUM (test code = 8.2 mg/dL 8.6-10.6 L 5612031226) T PROTEIN (test code = 6.0 g/dL 6.3-8.2 L 0357223477) ALBUMIN (test code = 3.1 g/dL 3.5-5.0 L 7723281009) ALK PHOS (test code = 120 U/L 34-122 5276374127) ALTv (test code = 26 U/L 5-35 1742-6) AST(SGOT) (test code = 39 U/L 13-40 7463539565) eGFR (test code = mL/min/1.73m2 1081747773) SNOW (test code = SNOW) Association of [...] tests). Lab Interpretation Abnormal (test code = 00785-7) [facility] COVID [id number] 02:50:27COVID DMT InterpretationInterpretation/Recommendations: Molecular NAAT Tests for [...] [facility] LABORATORY SERVICESCOVID Resu acrPGZK-DcG-4 NAAT (no units) ? ? Date ? Value ? 02/13/2020 ? Not Detected ? SARS-CoV-2 Rapid ID NOW (no units) ? ? Date ? Value ? 09/29/2020 ? Not Detected ? ? ? 08/10/2019 ? Not Detected ? [facility] SERVICESUnCorp[facility] AreaCB WITH [id number] 10:31:29 Test Item Value Reference Range Interpretation [...] (test code = 52.3 fL 39.0-49.9 H 31042-1) RDW-CV (test code = 18.4 % 12.0-15.5 H 788-0) PLT (test code = See_Comment LL [Automated 777-3) message] The sy stem which generated this result transmitted reference range : 166 - 358 10*3/ ?L. The reference r davi was not used to interpret this result as normal/abnormal . MPV (test code = 11.2 fL 9.5-12.9 00023-8) IPF % (test code = 3.9 % 1.3-7.7 Platelet count 7334791867) measured by fluorescence method. NRBC/100 WBC (test See_Comment [Automat ed code = 4006587180) message] The system which generated this result transmitted reference range : 0.0 - 10.0 /100 WBCs. The refer ence range was not u sed to interpret th is result as normal/abnormal . NRBC x10^3 (test code <0.01 See_Comment [Auto mated = 7962854621) message] The s ystem which generated this result transmitted reference range : 10*3/?L. The reference range was not used to interpret this result as normal/abnormal . GRAN MAT (NEUT) % 57.5 % (test code = 770-8) IMM GRAN % (test code 0.50 % = 0170445491) LYMPH % (test code = 20.7 % 736-9) MONO % (test code = 13.3 % 5905-5) EOS % (test code = 6.9 % 713-8) BASO % (test code = 1.1 % 706-2) GRAN MAT x10^3(ANC) 1.08 10*3/uL 1.88-7.09 L (test code = 0235883346) IMM GRAN x10^3 (test <0.03 0.00-0.06 code = 5882580374) LYMPH x10^3 (test code 0.39 10*3/uL 1.32-3.29 L = 731-0) MONO x10^3 (test code 0.25 10*3/uL 0.33-0.92 L = 742-7) EOS x10^3 (test code = 0.13 10*3/uL 0.03-0.39 711-2) BASO x10^3 (test code <0.03 0.01-0.07 = 704-7) BASO STIPPLING (test Present A code = 703-9) ELLIPTO/OVAL (test 2+ See_Comment A [Automat ed code = 64773-3) message] The system which generated this result transmitted reference range : (none). The reference range was not used to interpret this result as normal/abnormal . POLYCHROMASIA (test 2+ See_Comment [Automa josemanuel code = 24972-2) message] The system which generated this result transmitted reference range : 2+. The referen ce range was not u sed to interpret th is result as normal/abnormal . Lab Interpretation Abnormal (test code = 71821-0) [facility] METABOLIC PANEL (71692)2020-10-01 09:19:22 Test Item Value Reference Range Interpretation Comments NA (test code = 135 mmol/L 135-145 1247436189) K (test code = 4.0 mmol/L 3.5-5.0 6041016930) CL (test code = 107 mmol/L 98-108 3846679380) CO2 TOTAL (test code = 24 mmol/L 23-31 1002565130) AGAP (test code = 2-16 1520765765) BUN (test code = 7 mg/dL 7-23 0114519084) GLUCOSE (test code = 93 mg/dL 70-110 7046806650) CREATININE (test code = 0.47 mg/dL 0.50-1.04 L 0237450381) TOTAL BILI (test code = 1.6 mg/dL 0.1-1.1 H 1622359097) CALCIUM (test code = 8.1 mg/dL 8.6-10.6 L 3153322605) T PROTEIN (test code = 5.8 g/dL 6.3-8.2 L 2741942205) ALBUMIN (test code = 2.8 g/dL 3.5-5.0 L 5155660273) ALK PHOS (test code = 106 U/L 34-122 0176558439) ALTv (test code = 23 U/L 5-35 1742-6) AST(SGOT) (test code = 39 U/L 13 8869456712) eGFR (test code = mL/min/1.73m2 9732780282) SNOW (test code = SNOW) Association of [...] tests). Lab Interpretation Abnormal (test code = 51206-3) [facility]MEGHANA [id number] 20:47:45 Test Item Value Reference Range Interpretation Comments TROPONIN I (test 0.002 ng/mL See_Comment [Automated code = 9010998743) message] The system which generated this result [...] ? Lab Interpretation Normal (test code = 32232-9) [facility] [id number] 19:11:57 Test Item Value Reference Range Interpretation Comments URINE CULTURE (test code <10,000 CFU/mL = 630-4) Gram-Positive Cocci [facility] PATH[facility] BY [id number] 18:17:03 Test Item Value Reference Range Interpretation Comments Campylobacter (jejuni, Negative Negative, coli and upsaliensis) Indeterminate, (test code = 53986-7) See comment Plesiomonas shigelloides Negative Negative, (test code = 58329-9) Indeterminate, See comment Salmonella (test code = Negative Negative, 75545-8) Indeterminate, See comment Yersinia enterocolitica Negative Negative, (test code = 42540-1) Indeterminate, See comment Vibrio (test code = Negative Negative, 01324-6) Indeterminate, See comment Vibrio cholerae (test Negative Negative, code = 48346-1) Indeterminate, See comment Enteroaggregative E. Negative Negative, coli (EAEC) (test code = Indeterminate, 78636-4) See comment Enteropathogenic E. coli Negative Negative, N/A, (EPEC) (test code = Indeterminate, 16995-7) See comment Enterotoxigenic E. coli Negative Negative, (ETEC) (test code = Indeterminate, 30528-0) See comment Shiga toxin-Producing E. Negative Negative, coli (STEC) (test code = Indeterminate, 08622-7) See comment Shigella/Enteroinvasive Negative Negative, E. coli (EIEC) (test Indeterminate, code = 84578-9) See comment Cryptosporidium (test Negative Negative, code = 65050-5) Indeterminate, See comment Cyclospora cayetanensis Negative Negative, (test code = 23569-4) Indeterminate, See comment Entamoeba histolytica Negative Negative, (test code = 20900-8) Indeterminate, See comment Giardia lamblia (test Negative Negative, code = 88503-6) Indeterminate, See comment Adenovirus F 40/41 (test Negative Negative, code = 40336-6) Indeterminate, See comment Astrovirus (test code = Negative Negative, 62734-6) Indeterminate, See comment Norovirus GI/GII (test Negative Negative, code = 72724-3) Indeterminate, See comment Rotavirus A (test code = Negative Negative, 83192-1) Indeterminate, See comment Sapovirus (test code = Negative Negative, 50933-2) Indeterminate, See comment Clostridioides Positive Negative, A (Clostridium) difficile Indeterminate, Toxin A/B (test code = See comment 74582-5) SNOW (test code = SNOW) Based on [employer]Array GI Panel package insert, the [employer]Array GI Panel contains a single multiplexed assay [...] the binary toxin gene (CDT), and the dhkqil-lobt-yfdy deletion at nucleotide 117 within the gene [...] organism. Lab Interpretation (test Abnormal code = 47853-1) [facility] (GUAIAC[facility] [id number] 14:26:32 Test Item Value Reference Range Interpretation Comments Occult (guaiac) Blood (test code = Negative Negative 2335-8) Lab Interpretation (test code = Normal 45949-9) [facility] WITH [id number] 13:54:12 Test Item Value Reference Range Interpretation [...] (test code = 52.9 fL 39.0-49.9 H 51412-6) RDW-CV (test code = 18.3 % 12.0-15.5 H 788-0) PLT (test code = See_Comment LL [Automated 777-3) message] The sy stem which generated this result transmitted reference range : 166 - 358 10*3/ ?L. The reference r davi was not used to interpret this result as normal/abnormal . MPV (test code = 10.8 fL 9.5-12.9 98080-8) IPF % (test code = 4.2 % 1.3-7.7 Platelet count 3677731326) measured by fluorescence method. NRBC/100 WBC (test See_Comment [Automat ed code = 2511849958) message] The system which generated this result transmitted reference range : 0.0 - 10.0 /100 WBCs. The refer ence range was not u sed to interpret th is result as normal/abnormal . NRBC x10^3 (test code <0.01 See_Comment [Auto mated = 3115477009) message] The s ystem which generated this result transmitted reference range : 10*3/?L. The reference range was not used to interpret this result as normal/abnormal . GRAN MAT (NEUT) % 60.0 % (test code = 770-8) IMM GRAN % (test code 0.40 % = 4410791538) LYMPH % (test code = 20.6 % 736-9) MONO % (test code = 11.3 % 5905-5) EOS % (test code = 6.9 % 713-8) BASO % (test code = 0.8 % 706-2) GRAN MAT x10^3(ANC) 1.49 10*3/uL 1.88-7.09 L (test code = 4707312759) IMM GRAN x10^3 (test <0.03 0.00-0.06 code = 3447105996) LYMPH x10^3 (test code 0.51 10*3/uL 1.32-3.29 L = 731-0) MONO x10^3 (test code 0.28 10*3/uL 0.33-0.92 L = 742-7) EOS x10^3 (test code = 0.17 10*3/uL 0.03-0.39 711-2) BASO x10^3 (test code <0.03 0.01-0.07 = 704-7) Lab Interpretation Abnormal (test code = 85495-3) [facility] METABOLIC PANEL (87559)2020-09-30 12:47:49 Test Item Value Reference Range Interpretation Comments NA (test code = 135 mmol/L 135-145 2977222843) K (test code = 4.0 mmol/L 3.5-5.0 6181358631) CL (test code = 108 mmol/L 98-108 2751004799) CO2 TOTAL (test code = 23 mmol/L 23-31 2379821244) AGAP (test code = 2-16 5887832331) BUN (test code = 8 mg/dL 7-23 8961868183) GLUCOSE (test code = 109 mg/dL 70-110 9052789814) CREATININE (test code = 0.52 mg/dL 0.50-1.04 2724587952) TOTAL BILI (test code = 1.7 mg/dL 0.1-1.1 H 1804030983) CALCIUM (test code = 8.0 mg/dL 8.6-10.6 L 3846010155) T PROTEIN (test code = 5.7 g/dL 6.3-8.2 L 5123509466) ALBUMIN (test code = 2.7 g/dL 3.5-5.0 L 0287728383) ALK PHOS (test code = 106 U/L 34-122 9819753760) ALTv (test code = 22 U/L 5-35 1742-6) AST(SGOT) (test code = 34 U/L 13-40 5331270403) eGFR (test code = mL/min/1.73m2 3363892647) SNOW (test code = SNOW) Association of [...] tests). Lab Interpretation Abnormal (test code = 42894-7) [facility] [id number] 11:49:39 Test Item Value Reference Range Interpretation Comments Fecal Leukocytes (test code = Positive Negative A [id number]) Lab Interpretation (test code = Abnormal 67510-1) [facility] [id number] 10:20:53 Test Item Value Reference Range Interpretation Comments NT-proBNP (test code 68 pg/mL See_Comment [Autom ated = [id number]) message] The system which generated this result transmitted reference range : <=125. The reference range was not used to interpret this result as normal/abnormal . SNOW (test code = SNOW) Biotin has been reported to cause a negative bias, interpret results relative to patient's use of biotin. Lab Interpretation Normal (test code = 49676-5) [facility] DIFF[facility]ILE [id number] 05:18:16 Test Item Value Reference Range Interpretation Comments Clostridioides (Clostridium) Negative Negative difficile (test code = 80727-5) Lab Interpretation (test code = Normal 64918-2) [facility])2020-09-30 00:54:42 Test Item Value Reference Range Interpretation Comments POCT GLU (test code = [id number]) 111 mg/dL 70-110 H Lab Interpretation (test code = Abnormal 79791-9) [facility] (NA, K, CL, CO2, GLUCOSE, BUN, CREATININE, CA)2020-09-29 22:08:22 Test Item Value Reference Range Interpretation Comments NA (test code = 135 mmol/L 135-145 0399504452) K (test code = 3.7 mmol/L 3.5-5.0 4884655502) CL (test code = 108 mmol/L 98-108 9776213759) CO2 TOTAL (test code = 22 mmol/L 23-31 L 2216747084) AGAP (test code = 2-16 1456799518) BUN (test code = 9 mg/dL 7-23 6309719747) GLUCOSE (test code = 104 mg/dL 70-110 4787322629) CREATININE (test code = 0.51 mg/dL 0.50-1.04 3376445729) CALCIUM (test code = 7.9 mg/dL 8.6-10.6 L 3205317292) eGFR (test code = mL/min/1.73m2 6100018628) SNOW (test code = SNOW) Association of [...] tests). Lab Interpretation Abnormal (test code = 50808-7) [facility]HEMOGLOBIN2021-06-21 21:41:20 Test Item Value Reference Range Interpretation Comments HGB (test code = 718-7) 7.4 g/dL 11.6-15.0 L Lab Interpretation (test code = Abnormal 09065-3) [facility]ITAMIN B12, [id number] 20:39:52 Test Item Value Reference Range Interpretation Comments VIT B12 (test code = 212 pg/mL 240-930 L 7409421227) SNOW (test code = SNOW) Biotin has been reported to cause a positive bias, interpret results relative to patient's use of biotin. 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.[facility]C-REACTIVE [id number] 17:01:56 Test Item Value Reference Range Interpretation Comments CRP (test code = 9912472937) 4.7 mg/dL <0.8 H Lab Interpretation (test code = Abnormal 85634-5) [facility]IT[facility]IN D, [id number] 16:43:29 Test Item Value Reference Range Interpretation Comments VIT D 25OH (test code = <13 25-80 L 84917-9) SNOW (test code = SNOW) Deficiency: <20 ng/mLInsufficiency: 20-24 ng/mLOptimal: 25-80 ng/mL Lab Interpretation (test Abnormal code = 99201-5) [facility]PROCALCITONIN2021-06-21 16:15:30 Test Item Value Reference Range Interpretation Comments Procalcitonin (test 0.08 ng/mL <0.07 H code = 5533644757) SNOW (test code = SNOW) INTERPRETATION OF [...] biotics/default.asp Lab Interpretation Abnormal (test code = 72433-1) [facility] SouthOSMOLALITY [id number] 15:35:14 Test Item Value Reference Range Interpretation Comments OSMO U (test code = See_Comment [Automa josemanuel message] 9940334089) The system Gooddler generated this result transmitted ref erence range: 50-1,100 mOsm/kg. The re ference range was not u sed to interpret this result as normal/abnor mal. Lab Interpretation (test Normal code = 74523-4) [facility] SouthTROPONIN [id number] 14:04:56 Test Item Value Reference Range Interpretation Comments TROPONIN I (test 0.002 ng/mL See_Comment [Automated code = 4192473118) message] The system which generated this result [...] ? Lab Interpretation Normal (test code = 85009-9) [facility]CT ABDOMEN PELVIS W [id number] 13:37:17 1. ?Findings concerning for infectious or [...] reviewed this study and agree with theabove report.[facility] WITH [id number] 11:41:25 Test Item Value Reference Range Interpretation Comments WBC (test code = See_Comment L [Automated 1890-2) message] The system which generated this result [...] (test code = 52.4 fL 39.0-49.9 H 04621-0) RDW-CV (test code = 18.2 % 12.0-15.5 H 788-0) PLT (test code = See_Comment LL [Automated 777-3) message] The system which generated this result transmit josemanuel reference range : 166 - 358 10*3/ ?L. The reference range was not u sed to interpret th is result as normal/abnormal . MPV (test code = Not Measure d 83305-5) IPF % (test code = 4.3 % 1.3-7.7 Platelet count 2886861248) measured by fluorescence method. NRBC/100 WBC (test See_Comment [Automat ed code = 0526243034) message] The system which generated this result transmit josemanuel reference range : 0.0 - 10.0 /100 WBCs. The reference range was not used to interpret this result as normal/abnormal . NRBC x10^3 (test code <0.01 See_Comment [Auto mated = 4948309394) message] The system which generated this result transmit josemanuel reference range : 10*3/?L. The reference range was not used to interpret this result as normal/abnormal . GRAN MAT (NEUT) % 74.4 % (test code = 770-8) IMM GRAN % (test code 0.50 % = 1510387760) LYMPH % (test code = 10.3 % 736-9) MONO % (test code = 12.3 % 5905-5) EOS % (test code = 2.0 % 713-8) BASO % (test code = 0.5 % 706-2) GRAN MAT x10^3(ANC) 3.02 10*3/uL 1.88-7.09 (test code = 5880429475) IMM GRAN x10^3 (test <0.03 0.00-0.06 code = 0445438517) LYMPH x10^3 (test 0.42 10*3/uL 1.32-3.29 L code = 731-0) MONO x10^3 (test code 0.50 10*3/uL 0.33-0.92 = 742-7) EOS x10^3 (test code 0.08 10*3/uL 0.03-0.39 = 711-2) BASO x10^3 (test code <0.03 0.01-0.07 = 704-7) PLT ESTIMATE (test Decreased Normal A code = 9317-9) SNOW (test code = SNOW) CBC smear reduced platelet Lab Interpretation Abnormal (test code = 22513-6) [facility]N-TERMINAL [id number] 11:07:24 Test Item Value Reference Range Interpretation Comments NT-proBNP (test code 79 pg/mL See_Comment [Autom ated = 0562636052) message] The system which generated this result transmitted reference range : <=125. The reference range was not used to interpret this result as normal/abnormal . SNOW (test code = SNOW) Biotin has been reported to cause a negative bias, interpret results relative to patient's use of biotin. Lab Interpretation Normal (test code = 47983-5) [facility] SouthIRON [id number] 11:04:41 Test Item Value Reference Range Interpretation Comments IRON (test code = 7457912762) 31 ug/dL 50-160 L TIBC (test code = 2460467651) 295 ug/dL 250-410 % FE SAT (test code = 8667393308) 11 % 20-50 L Lab Interpretation (test code = Abnormal 74043-9) [facility] SouthPROTEIN CREAT RATIO URINE [id number] 10:57:19 Test Item Value Reference Range Interpretation Comments T. PROT U (test code = 2888-6) 9 mg/dL CREAT U (test code = 1643640057) 187.5 mg/dL Protein/Creatinine Ratio Urine 0.0-2.0 (test code = 2430194996) [facility] SouthSODIUM, URINE [id number] 10:53:21 Test Item Value Reference Range Interpretation Comments NA URINE (test code = 9251120674) 30 mmol/L [facility] SouthSEDIMENTATION [id number] 10:33:04 Test Item Value Reference Range Interpretation Comments ESR (test code = See_Comment [Automated message] 8224282495) The system Gooddler generated this result transmitted ref erence range: 0 - 20 m m/HR. The reference r davi was not used to interpret this result as normal/abnor mal. Lab Interpretation (test Normal code = 83120-2) [facility] SouthPROTHROMBIN TIME / [id number] 09:43:39 Test Item Value Reference Range Interpretation Comments PROTIME PATIENT (test See_Comment H [Auto mated message] code = 5964-2) The system SVXR generated this result transmitted ref erence range: 12.0 - 1 4.7 Seconds. The reference range was not used to int erpret this result as normal/abnormal . INR (test code = 6301-6) Nor mal INR <1.1; Warfarin Therap eutic range 2.0 to 3. 0 or 2.5 to 3.5, dep ending upon the indica tions. Lab Interpretation (test Abnormal code = 91805-1) [facility] SouthLactic Acid Whole [id number] 08:42:38 Test Item Value Reference Range Interpretation Comments LACTIC ACID (test code = 1.47 mmol/L 0.50-2.20 2113773689) Lab Interpretation (test code = Normal 70970-7) [facility] SouthFERRITIN [id number] 07:31:09 Test Item Value Reference Range Interpretation Comments FERRITIN (test code = 12.2 ng/mL 11.0-264.0 6558829546) SNOW (test code = SNOW) Biotin has been reported to cause a negative bias, interpret results relative to patient's use of biotin. Lab Interpretation (test Normal code = 78461-1) [facility] SouthTHYROID STIMULATING [id number] 07:27:08 Test Item Value Reference Range Interpretation Comments TSH (test code = See_Comment [Automated message] 8267257964) The system Gooddler generated this result transmitted ref erence range: 0.45 - 4 .70 mIU/L. The refe rence range was not u sed to interpret this result as normal/abnor mal. Lab Interpretation (test Normal code = 84705-3) [facility] SouthGLYCOSYLATED HEMOGLOBIN (A1C)2020-09-29 07:05:40 Test Item Value Reference Range Interpretation Comments HGB A1C (test code = 5.0 % 4.0-5.7 4548-4) SNOW (test code = SNOW) Reference RangesNormal: <5.7%Prediabetes: 5.7 - 6.4%Diabetes: > 6.5% Lab Interpretation (test Normal code = 01504-3) [facility] SouthURIC [id number] 07:05:35 Test Item Value Reference Range Interpretation Comments URIC ACID (test code = 0465452749) 4.2 mg/dL 2.9-6.0 Lab Interpretation (test code = Normal 78993-3) [facility] SouthCREATINE [id number] 07:05:30 Test Item Value Reference Range Interpretation Comments CK (test code = 1888479726) 192 U/L 33-194 Lab Interpretation (test code = Normal 07059-8) [facility]N-TERMINAL [id number] 07:05:30 Test Item Value Reference Range Interpretation Comments NT-proBNP (test code 94 pg/mL See_Comment [Autom ated = 5481895622) message] The system which generated this result transmitted reference range : <=125. The reference range was not used to interpret this result as normal/abnormal . SNOW (test code = SNOW) Biotin has been reported to cause a negative bias, interpret results relative to patient's use of biotin. Lab Interpretation Normal (test code = 37293-7) [facility] SouthMAGNESIUM2021-06-21 07:04:24 Test Item Value Reference Range Interpretation Comments MAGNESIUM (test code = 3284006831) 1.8 mg/dL 1.7-2.4 Lab Interpretation (test code = Normal 88343-8) [facility] SouthPHOSPHORUS2021-06-21 07:03:39 Test Item Value Reference Range Interpretation Comments PHOSPHORUS (test code = 0931489265) 2.2 mg/dL 2.5-5.0 L Lab Interpretation (test code = Abnormal 09482-1) [facility] SouthLIPID PANEL (70891)(TOTAL CHOLESTEROL, TRIGLYCERIDES, HDL)2020-09-29 06:56:06 Test Item Value Reference Range Interpretation Comments CHOL (test code = 132 mg/dL 120-200 0812684731) HDL (test code = 41 mg/dL >50 L 2126309357) HDLC RATIO (test code = See_Comment [Au tomated message] 1551828726) The system Gooddler generated this result transmit josemanuel reference range : <=4.5. The refe rence range was not u sed to interpret th is result as normal/abnormal . TRIG (test code = 73 mg/dL 30-170 6855935123) LDL CHOL (test code = 76 mg/dL See_Comment [Auto mated message] 79824-8) The system Gooddler generated this result transmit josemanuel reference range : <=160. The refe rence range was not u sed to interpret th is result as normal/abnormal . VLDL (test code = 15 mg/dL 5-60 9793222093) Lab Interpretation (test Abnormal code = 91235-4) [facility]COVID-19 (ID NOW RAPID TESTING)2020-09-29 06:24:26 Test Item Value Reference Range Interpretation Comments SARS-CoV-2 Rapid ID NOW Not Detected Not Detected (test code = 99892-3) SNOW (test code = SNOW) ID NOW COVID-19 Assay is an isothermal nucleic acid amplification test intended for the qualitative detection of nucleic acid from SARS-CoV-2 viral RNA in nasopharyngeal ([employer]) specimens. It is used under Emergency Use [...] indicated. Lab Interpretation Normal (test code = 89739-0) [facility] SouthURINALYSIS2021-06-21 04:43:31 Test Item Value Reference Range Interpretation Comments APPEARANCE (test code = Clear Clear 7654093072) COLOR (test code = Rosanne Yellow A 9039467832) PH (test code = 4.8-8.0 9699268062) SP GRAVITY (test code = 1.003-1.030 4179644644) GLU U QUAL (test code = Normal Normal 1052022510) BLOOD (test code = Negative Negative 2301899372) KETONES (test code = Negative Negative 0677485027) PROTEIN (test code = 30 mg/dL Negative A 2887-8) UROBILIN (test code = Normal Normal 0365973675) BILIRUBIN (test code = Negative Negative 6418952281) NITRITE (test code = Negative Negative 8055315534) LEUK RANULFO (test code = 25/uL Negative A 7779111433) RBC/HPF (test code = See_Comment [Autom ated message] 7885097913) The system Gooddler generated this result transmitted ref erence range: 0 - 3 HP F. The reference range was not used to int erpret this result as normal/abnormal . WBC/HPF (test code = See_Comment [Autom ated message] 9885678759) The system Gooddler generated this result transmitted ref erence range: 0 - 5 HP F. The reference range was not used to int erpret this result as normal/abnormal . BACTERIA (test code = Few Negative A 0314663875) MUCOUS (test code = Moderate Negative LPF A 7663047901) SQ EPITH (test code = HPF 1153128400) Lab Interpretation (test Abnormal code = 10959-0) [facility] SouthCBC WITH [id number] 04:39:35 Test Item Value Reference Range Interpretation Comments WBC (test code = See_Comment [Automated 6190-2) message] The system which generated this result [...] (test code = 51.3 fL 39.0-49.9 H 93912-6) RDW-CV (test code = 18.1 % 12.0-15.5 H 788-0) PLT (test code = See_Comment L [Automated 777-3) message] The system which generated this result transmit josemanuel reference range : 166 - 358 10*3/ ?L. The reference range was not u sed to interpret th is result as normal/abnormal . MPV (test code = 11.1 fL 9.5-12.9 29661-4) IPF % (test code = 3.7 % 1.3-7.7 Platelet count 1506656065) measured by fluorescence method. NRBC/100 WBC (test See_Comment [Automat ed code = 7964600767) message] The system which generated this result transmit josemanuel reference range : 0.0 - 10.0 /100 WBCs. The reference range was not used to interpret this result as normal/abnormal . NRBC x10^3 (test code <0.01 See_Comment [Auto mated = 8366710861) message] The system which generated this result transmit josemanuel reference range : 10*3/?L. The reference range was not used to interpret this result as normal/abnormal . GRAN MAT (NEUT) % 76.4 % (test code = 770-8) IMM GRAN % (test code 0.80 % = 4051099211) LYMPH % (test code = 9.4 % 736-9) MONO % (test code = 11.3 % 5905-5) EOS % (test code = 1.5 % 713-8) BASO % (test code = 0.6 % 706-2) GRAN MAT x10^3(ANC) 4.07 10*3/uL 1.88-7.09 (test code = 9903795105) IMM GRAN x10^3 (test 0.04 10*3/uL 0.00-0.06 code = 1004965559) LYMPH x10^3 (test 0.50 10*3/uL 1.32-3.29 L code = 731-0) MONO x10^3 (test code 0.60 10*3/uL 0.33-0.92 = 742-7) EOS x10^3 (test code 0.08 10*3/uL 0.03-0.39 = 711-2) BASO x10^3 (test code 0.03 10*3/uL 0.01-0.07 = 704-7) PLT ESTIMATE (test Decreased Normal A code = 9317-9) SNOW (test code = SNOW) Juan slide adgrees to decreased Platelet Lab Interpretation Abnormal (test code = 58537-2) [facility]. METABOLIC PANEL (61571)2020-09-29 04:25:42 Test Item Value Reference Range Interpretation Comments NA (test code = 134 mmol/L 135-145 L 7796385468) K (test code = 3.2 mmol/L 3.5-5.0 L 9323883999) CL (test code = 104 mmol/L 98-108 4574654082) CO2 TOTAL (test code = 24 mmol/L 23-31 4613433254) AGAP (test code = 2-16 6411713754) BUN (test code = 8 mg/dL 7-23 7525036624) GLUCOSE (test code = 105 mg/dL 70-110 5952603007) CREATININE (test code = 0.51 mg/dL 0.50-1.04 4725318343) TOTAL BILI (test code = 2.5 mg/dL 0.1-1.1 H 9308622682) CALCIUM (test code = 8.2 mg/dL 8.6-10.6 L 4195740877) T PROTEIN (test code = 6.3 g/dL 6.3-8.2 4432630489) ALBUMIN (test code = 3.1 g/dL 3.5-5.0 L 7429346405) ALK PHOS (test code = 136 U/L 34-122 H 1808165263) ALTv (test code = 24 U/L 5-35 1742-6) AST(SGOT) (test code = 30 U/L 13-40 8188233084) eGFR (test code = mL/min/1.73m2 8686453530) SNOW (test code = SNOW) Association of [...] tests). Lab Interpretation Abnormal (test code = 06710-5) [facility]LIPASE2021-06-21 04:25:42 Test Item Value Reference Range Interpretation Comments LIPASE (test code = 1625712867) 102 U/L 0-220 Lab Interpretation (test code = Normal 42473-0) [facility]SARS-CoV-2 (COVID-19) RNA [Presence] in Respiratory specimen by HELENA with probe [id number] 00:49:19 Test Item Value Reference Range Interpretation Comments SARS-CoV-2 (COVID-19) RNA Not detected Not-Detected [Presence] in Respiratory specimen by HELENA with probe detection (test code = 88545-3) 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 employed in a healthcare setting (test code = 36788-0) Whether the patient has symptoms related to condition of interest (test code = 93603-8) Patient was hospitalized because of this condition (test code = 87854-7) Whether the patient was admitted to intensive care unit (ICU) for condition of interest (test code = 38196-5) Whether patient resides in a congregate care setting (test code = 10531-6) SARS-CoV-2 (COVID-19) RNA [Presence] in Respiratory specimen by HELENA with probe [id number] 02:47:43 Test Item Value Reference Range Interpretation Comments SARS-CoV-2 (COVID-19) RNA Not detected Not-Detected [Presence] in Respiratory specimen by HELENA with probe detection (test code = 97779-3) SARS-CoV-2 (COVID-19) RNA [Presence] in Respiratory specimen by HELENA with probe [id number] 16:32:37 Test Item Value Reference Range Interpretation Comments SARS-CoV-2 (COVID-19) RNA Not detected Not-Detected [Presence] in Respiratory specimen by HELENA with probe detection (test code = 81866-0) SARS-CoV-2 (COVID-19) RNA [Presence] in Respiratory specimen by HELENA with probe [id number] 05:29:57 Test Item Value Reference Range Interpretation Comments SARS-CoV-2 (COVID-19) RNA Not detected Not-Detected [Presence] in Respiratory specimen by HELENA with probe detection (test code = 31378-0) CT ABDOMEN PELVIS W [id number] 19:27:49 1. ?No evidence of small bowel [...] reviewed this study and agree with the abovereport.[facility] WITH [id number] 11:56:00 Test Item Value Reference Range Interpretation Comments WBC (test code = See_Comment L [Automated 2390-2) message] The sy stem which generated this [...] (test code = 58.0 fL 39-49.9 H 14849-0) RDW-CV (test code = 16.6 % 12-15.5 H 788-0) PLT (test code = See_Comment LL [Automated 777-3) message] The sy stem which generated this result transmitted reference range : 166 - 358 10*3/ ?L. The reference r davi was not used to interpret this result as normal/abnormal . MPV (test code = 11.0 fL 9.5-12.9 54662-5) IPF % (test code = 5.5 % 1.3-7.7 Platelet count 4586520388) measured by fluorescence method. NRBC/100 WBC (test See_Comment [Automat ed code = 3796524194) message] The system which generated this result transmitted reference range : 0.0 - 10.0 /100 WBCs. The refer ence range was not u sed to interpret th is result as normal/abnormal . NRBC x10^3 (test code <0.01 See_Comment [Auto mated = 8757857760) message] The s ystem which generated this result transmitted reference range : 10*3/?L. The reference range was not used to interpret this result as normal/abnormal . GRAN MAT (NEUT) % 57.6 % (test code = 770-8) IMM GRAN % (test code 0.00 % = 7848465812) LYMPH % (test code = 27.1 % 736-9) MONO % (test code = 11.8 % 5905-5) EOS % (test code = 3.1 % 713-8) BASO % (test code = 0.4 % 706-2) GRAN MAT x10^3(ANC) 1.47 10*3/uL 1.88-7.09 L (test code = 6675911647) IMM GRAN x10^3 (test <0.03 0-0.06 code = 0482718938) LYMPH x10^3 (test code 0.69 10*3/uL 1.32-3.29 L = 731-0) MONO x10^3 (test code 0.30 10*3/uL 0.33-0.92 L = 742-7) EOS x10^3 (test code = 0.08 10*3/uL 0.03-0.39 711-2) BASO x10^3 (test code <0.03 0.01-0.07 = 704-7) Lab Interpretation Abnormal (test code = 54428-2) [facility]. METABOLIC PANEL (25635)2019-08-11 10:42:00 Test Item Value Reference Range Interpretation Comments NA (test code = 138 mmol/L 135-145 5988326663) K (test code = 3.8 mmol/L 3.5-5 3704548583) CL (test code = 108 mmol/L 98-108 8937182662) CO2 TOTAL (test code = 24 mmol/L 23-31 6000789091) AGAP (test code = 2-16 3749524432) BUN (test code = 10 mg/dL 7-23 2473222077) GLUCOSE (test code = 108 mg/dL 70-110 4176402135) CREATININE (test code = 0.43 mg/dL 0.5-1.04 L 8200404806) TOTAL BILI (test code = 2.5 mg/dL 0.1-1.1 H 9668660946) CALCIUM (test code = 8.4 mg/dL 8.6-10.6 L 2666379750) T PROTEIN (test code = 6.1 g/dL 6.3-8.2 L 2471641342) ALBUMIN (test code = 3.1 g/dL 3.5-5 L 5127492019) ALK PHOS (test code = 102 U/L 34-122 2126705539) ALTv (test code = 52 U/L 5-35 H 1742-6) AST(SGOT) (test code = 63 U/L 13-40 H 4155975400) eGFR Calculation mL/min/1.73m2 (Non-) (test code = 1714598328) eGFR Calculation mL/min/1.73m2 () (test code = 1563607220) SNOW (test code = SNOW) Association of [...] tests). Lab Interpretation Abnormal (test code = 48450-1) [facility]XR SMALL BOWEL [id number] 02:08:11 1. ?No bowel obstruction. No fluoroscopic images or fluoroscopic time. RL 6200 HISTORY: ?Abdominal pain COMPARISON: ?None FINDINGS: There is a nonobstructive bowel gas pattern. Contrast is seen throughoutthe entire small bowel and colon. Nodilated loops of bowel demonstrated. [facility], Radiant Results Inft User - 08/10/2019 9:09 PM CDTHISTORY: Abdominal painCOMPARISON: NoneFINDINGS:There is a nonobstructive bowel gas pattern. Contrast is seen throughoutthe entire small bowel and colon. No dilated loops of bowel demonstrated.IMPRESSION1.No bowel obstruction.No fluoroscopic images or fluoroscopic time.RL 6200 [facility] AreaSEDIMENTATION [id number] 16:19:00 Test Item Value Reference Range Interpretation Comments ESR (test code = See_Comment [Automated message] 3214756377) The system Gooddler generated this result transmitted ref erence range: 0 - 20 m m/HR. The reference r davi was not used to interpret this result as normal/abnor mal. Lab Interpretation (test Normal code = 31888-8) [facility] 1 View - To confirm nasogastric tube [...] reviewed this study and agree with the abovereport.[facility] WITH [id number] 13:48:00 Test Item Value Reference Range Interpretation [...] (test code = 58.4 fL 39-49.9 H 91396-1) RDW-CV (test code = 16.7 % 12-15.5 H 788-0) PLT (test code = See_Comment LL [Automated 777-3) message] The system which generated this result transmit josemanuel reference range : 166 - 358 10*3/ ?L. The reference range was not u sed to interpret th is result as normal/abnormal . MPV (test code = 10.5 fL 9.5-12.9 06196-4) IPF % (test code = 3.0 % 1.3-7.7 Platelet count 7987671521) measured by fluorescence method. NRBC/100 WBC (test See_Comment [Automat ed code = 3740080109) message] The system which generated this result transmit josemanuel reference range : 0.0 - 10.0 /100 WBCs. The reference range was not used to interpret this result as normal/abnormal . NRBC x10^3 (test code <0.01 See_Comment [Auto mated = 4813685705) message] The system which generated this result transmit josemanuel reference range : 10*3/?L. The reference range was not used to interpret this result as normal/abnormal . GRAN MAT (NEUT) % 57.1 % (test code = 770-8) IMM GRAN % (test code 0.40 % = 1297612288) LYMPH % (test code = 28.1 % 736-9) MONO % (test code = 10.4 % 5905-5) EOS % (test code = 3.6 % 713-8) BASO % (test code = 0.4 % 706-2) GRAN MAT x10^3(ANC) 1.42 10*3/uL 1.88-7.09 L (test code = 0882746738) IMM GRAN x10^3 (test <0.03 0-0.06 code = 2895231276) LYMPH x10^3 (test 0.70 10*3/uL 1.32-3.29 L code = 731-0) MONO x10^3 (test code 0.26 10*3/uL 0.33-0.92 L = 742-7) EOS x10^3 (test code 0.09 10*3/uL 0.03-0.39 = 711-2) BASO x10^3 (test code <0.03 0.01-0.07 = 704-7) PLT ESTIMATE (test Critically Normal AA code = 9317-9) Decreased Lab Interpretation Abnormal (test code = 21502-7) [facility]A1C)2019-08-10 13:13:00 Test Item Value Reference [...] Indicated Lab Interpretation Normal (test code = 84169-7) [facility]YROID STIMULATING [id number] 13:05:00 Test Item Value Reference Range Interpretation Comments TSH (test code = See_Comment [Automated message] 9786170222) The system Gooddler generated this result transmitted ref erence range: 0.45 - 4 .70 mIU/L. The refe rence range was not u sed to interpret this result as normal/abnor mal. Lab Interpretation (test Normal code = 46682-8) [facility], [id number] 13:04:00 Test Item Value Reference Range Interpretation Comments PREG SERUM (test code Negative = 3528996617) SNOW (test code = SNOW) Less than 10 IU/L. ?If low titer or ectopic is suspected, resubmit specimen in 48-72 hours. [facility] SouthLIPID PANEL (53280)(TOTAL CHOLESTEROL, TRIGLYCERIDES, HDL)2019-08-10 12:36:00 Test Item Value Reference Range Interpretation Comments CHOL (test code = 158 mg/dL 120-200 4124125583) HDL (test code = 47 mg/dL >50 L 9982824267) HDLC RATIO (test code = See_Comment [Au tomated message] 2888765591) The system Gooddler generated this result transmit josemanuel reference range : <=4.5. The refe rence range was not u sed to interpret th is result as normal/abnormal . TRIG (test code = 51 mg/dL 30-170 5437772776) LDL CHOL (test code = 101 mg/dL See_Comment [Auto mated message] 99305-0) The system Gooddler generated this result transmit josemanuel reference range : <=160. The refe rence range was not u sed to interpret th is result as normal/abnormal . VLDL (test code = 10 mg/dL 5-60 9853389902) Lab Interpretation (test Abnormal code = 81609-2) [facility]COMP. METABOLIC PANEL (12906)2019-08-10 12:35:00 Test Item Value Reference Range Interpretation Comments NA (test code = 139 mmol/L 135-145 0299046139) K (test code = 3.9 mmol/L 3.5-5 0406019306) CL (test code = 109 mmol/L 98-108 H 7785692804) CO2 TOTAL (test code = 25 mmol/L 23-31 6071528353) AGAP (test code = 2-16 4511901282) BUN (test code = 15 mg/dL 7-23 0488396051) GLUCOSE (test code = 218 mg/dL 70-110 H 9923037437) CREATININE (test code = 0.40 mg/dL 0.5-1.04 L 2025513731) TOTAL BILI (test code = 2.0 mg/dL 0.1-1.1 H 5775995970) CALCIUM (test code = 8.5 mg/dL 8.6-10.6 L 6459975740) T PROTEIN (test code = 6.2 g/dL 6.3-8.2 L 2707695537) ALBUMIN (test code = 3.1 g/dL 3.5-5 L 0315836429) ALK PHOS (test code = 99 U/L 34-122 7738234994) ALTv (test code = 42 U/L 5-35 H 1742-6) AST(SGOT) (test code = 49 U/L 13-40 H 4412656118) eGFR Calculation mL/min/1.73m2 (Non-) (test code = 5572712417) eGFR Calculation mL/min/1.73m2 () (test code = 0081067671) SNOW (test code = SNOW) Association of [...] tests). Lab Interpretation Abnormal (test code = 89439-6) [facility]2020-05-01 12:35:00 Test Item Value Reference Range Interpretation Comments MAGNESIUM (test code = 1122174573) 1.6 mg/dL 1.7-2.4 L Lab Interpretation (test code = Abnormal 10016-2) [facility]PHOSPHORUS2020-05-01 12:35:00 Test Item Value Reference Range Interpretation Comments PHOSPHORUS (test code = 5456887731) 3.6 mg/dL 2.5-5 Lab Interpretation (test code = Normal 11522-2) [facility] SouthCREATINE [id number] 12:35:00 Test Item Value Reference Range Interpretation Comments CK (test code = 2674383141) 123 U/L 33-194 Lab Interpretation (test code = Normal 31835-7) [facility]LIPASE2020-05-01 12:35:00 Test Item Value Reference Range Interpretation Comments LIPASE (test code = 2368445324) 141 U/L 0-220 Lab Interpretation (test code = Normal 18904-6) [facility]AMYLASE2020-05-01 12:34:00 Test Item Value Reference Range Interpretation Comments LIN (test code = 9981375926) 73 U/L 35-110 Lab Interpretation (test code = Normal 90735-7) [facility] SouthPROTHROMBIN TIME / [id number] 12:07:00 Test Item Value Reference Range Interpretation Comments PROTIME PATIENT (test See_Comment H [Auto mated message] code = 5964-2) The system SVXR generated this result transmitted ref erence range: 12.0 - 1 4.7 Seconds. The reference range was not used to int erpret this result as normal/abnormal . INR (test code = 6301-6) Nor mal INR <1.1; Warfarin Therap eutic range 2.0 to 3. 0 or 2.5 to 3.5, dep ending upon the indica tions. Lab Interpretation (test Abnormal code = 26373-5) [facility]CORONAVIRUS COVID-19 [id number] 10:18:00 Test Item Value Reference Range Interpretation Comments SARS-CoV-2 (test code = Not Detected Not Detected 60081-8) SNOW (test code = SNOW) ID NOW COVID-19 Assay is an isothermal nucleic acid amplification test intended for the qualitative detection of nucleic acid from SARS-CoV-2 viral RNA in nasopharyngeal ([employer]) specimens. It is used under Emergency Use [...] indicated. Lab Interpretation Normal (test code = 71656-5) [facility]RAD, CHEST, 1 VIEW, NON [id number] 07:50:00Reason for exam:->SOBShould this be performed at the bedside?->Yes FINAL REPORT CLINICAL HISTORY: SOB TECHNIQUE: 1 view of the chest. COMPARISON: None IMPRESSION: There is pulmonary vascular congestion with prominent lung markings bilaterally. Subpulmonic pleural effusions cannot be excluded. The cardiomediastinal silhouette is magnified by technique. Signed: Franky Louis MDReport Verified Date/Time: 10/03/2018 07:50:47 Reading Location: [facility] Radiology Reading Room [id number] 07:37:00 Test Item Value Reference Range Interpretation Comments MAGNESIUM (BEAKER) (test code = 1.6 mg/dL 1.6-2.6 627) BASIC METABOLIC [id number] 07:37:00 Test Item Value Reference Range Interpretation [...] DIALYSIS PATIEN TS. Specimen slightly ictericHEPATIC FUNCTION [id number] 07:37:00 Test Item Value Reference Range Interpretation [...] 35 U/L 6-55 347) Specimen slightly ictericPROTHROMBIN TIME/[id number] 06:25:00 Test Item Value Reference Range Interpretation [...] mechanical heart valves.CBC W/PLT COUNT & AUTO [id number] 06:16:00 Test Item Value Reference Range Interpretation [...] = 3438) Received comment: User comments: Slide comments:[id number] 05:58:00 Test Item Value Reference Range Interpretation Comments MAGNESIUM (BEAKER) (test code = 1.6 mg/dL 1.6-2.6 627) BASIC METABOLIC [id number] 05:58:00 Test Item Value Reference Range Interpretation [...] DIALYSIS PATIEN TS. Specimen slightly ictericHEPATIC FUNCTION [id number] 05:58:00 Test Item Value Reference Range Interpretation [...] 39 U/L 6-55 347) Specimen slightly ictericPROTHROMBIN TIME/[id number] 05:26:00 Test Item Value Reference Range Interpretation [...] mechanical heart valves.CBC W/PLT COUNT & AUTO [id number] 05:20:00 Test Item Value Reference Range Interpretation [...] WBC 0-0 (test code = 413) VITAMIN [id number] 06:57:00 Test Item Value Reference Range Interpretation Comments VITAMIN B12 (BEAKER) (test code = 178 pg/mL 213-816 L 774) [id number] 06:57:00 Test Item Value Reference Range Interpretation Comments FERRITIN (BEAKER) (test code = 361) 21 ng/mL 5-275 FOLATE, [id number] 06:57:00 Test Item Value Reference Range Interpretation [...] 28 % 20-55 (test code = 2590) [id number] 05:59:00 Test Item Value Reference Range Interpretation Comments MAGNESIUM (BEAKER) (test code = 1.7 mg/dL 1.6-2.6 627) BASIC METABOLIC [id number] 05:59:00 Test Item Value Reference Range Interpretation [...] FOR DIALYSIS PATIEN TS. Specimen slightly ictericLIPID [id number] 05:59:00 Test Item Value Reference Range Interpretation [...] Very High >=190 Specimen slightly ictericHEPATIC FUNCTION [id number] 05:59:00 Test Item Value Reference Range Interpretation [...] = 41 U/L 6-55 347) Specimen slightly [id number] 05:59:00 Test Item Value Reference Range Interpretation Comments LIPASE (BEAKER) (test code = 749) 35 U/L 8-78 Specimen slightly ictericPROTHROMBIN TIME/[id number] 05:58:00 Test Item Value Reference Range Interpretation [...] mechanical heart valves.CBC W/PLT COUNT & AUTO [id number] 05:37:00 Test Item Value Reference Range Interpretation [...] [facility]) (test code = 2801) POCT-HEMOGLOBIN [id number] 06:12:00 Test Item Value Reference Range Interpretation Comments POC-HEMOGLOBIN METER 8.6 g/dL 12.0-15.[address] [facility] [address] ([facility]) (test code = [place] [address]39)"
--- NOTE | 2021-08-11 21:36 | ER ---
Nurse's Notes [facility] Name: Zenaida Goss Age: 61 yrs Sex: Female : 1960 Arrival Date: 08/11/2021 Time: 21:24 Bed Waiting [facility] MD: Diagnosis: ED Course: 08/11 21:24 Patient arrived in ED. pinkyz Administered Medications: No medications were administered Outcome: 21:35 Patient left the ED. ld1 Signatures: Cheyanne Jordan RN RN ld1 Trisha Ramirez
== END 2021-08-11 21:35 | disposition left against medical advice (07) ==
LOC: ER 21:20
DX: Z02.9 Encounter for administrative examinations, unspecified (principal)

== ENCOUNTER 2021-08-30 22:41 | Emergency (ER) | payer OTHER ==
--- OUTSIDE RECORDS SUMMARY | 2021-08-30 22:47 | XMS REPORT | Continuity of Care Document ---
:1960 Author Organization [facility] t Address [address] [place] [address] Dr. [address]. [address] [place] [address] Care Team Providers Name Role Phone Sami HERNANDEZ Primary Care Physician Unavailable Ruth Attending Clinician Unavailable Harley Attending Clinician Unavailable [facility] Attending Clinician Unavailable José Manuel GREEN Attending Clinician Unavailable Beatriz PAN RECLAIM PROCESSOR, F Attending Clinician Nancy REYES Attending Clinician [...] Number Effective Date Expiration Date Deshawn blancas [facility] [id number] 2019 CHOICE 00:00:00 Problems Condition Condition Condition [...] 00 Medical Branch Primary Primary Diagnosis Active 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 of itis of - [facility] right knee right knee [facility] Primary Primary Diagnosis Active 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 of itis of - [facility] left knee left knee [facility] Allergies, Adverse Reactions, Alerts Allergy Allergy Status [...] s Branch MORPHINE Adverse Active Info Not Commo n Reaction Available Spir t [facility] Social History Social Habit Start Date Stop Date Quantity Comments Source Exposure to Not sure [facility] SARS-CoV-2 [facility] (event) Branch Alcohol intake 2021-04-02 2021-04-02 Ex-drinker [facility] 00:00:00 00:00:00 (finding) [facility] Tobacco use and 2016-08-07 2016-08-07 Never used Universit y of exposure 00:00:00 00:00:00 [facility] Sex Ass[birth year] At [birth year] Universit y of 00:00:00 00:00:00 [facility] Smoking Status Start Date Stop Date Source Never smoker [facility] Medications Ordered Filled Start Stop Current Ordering Indication Dosage Frequency Signature Comments Components Source Medication Medication Date Date Medication? Clinician (SIG) Name Name dexamethaso 2021-1 2021- No 10mg 10 mg, Uni vers ne - 12-23 Oral, ity of (DECADRON 20:45: 20:05 ONCE, 1 [place] PHOS[place]ATE[place] 00 :00 dose, On Medic al injection Gearldine Branch 10 mg 04/02/21 at 1445, Routine ketorolac 2020-04- No 30mg 30 mg, Unive rs (TORADOL) - 12- Intramuscu ity of injection 20:45: 20:05 lar, ONCE, [place] 30 mg 00 :00 1 dose, On Medical Geraldine Branch 04/02/21 at 1445, VERN ondansetron 2020-04 Yes [id number] 4mg Take 1 Univers 4 mg 2-23 tablet by ity of disintegrat 00:00: mouth [place] ing tablet 00 every 8 Medica l (eight) Branch hours as needed for Nausea and Vomiting (N/V). ondansetron 2020-04 Yes [id number] 4mg Take 1 Univers 4 mg 2-23 tablet by ity of disintegrat 00:00: mouth [place] ing tablet 00 every 8 Medica l (eight) Branch hours as needed for Nausea and Vomiting (N/V). cholecalcif 2020- No [id number] 1999U Take 2 Univers nuno, 6-26 07-27 tablets by ity of vitamin D3, 00:00: 04:59 [place] 25 mcg 00 :00 daily for Medical (1,000 30 days. Branch unit) tablet cyanocobala 2020- No [id number] 1000ug inject 1 Univers min 1,000 6-26 07-27 mL under ity o f mcg/mL 00:00: 04:59 the skin [place] injection 00 :00 every 24 Medica l (twenty-fo Branch ur) hours for 30 days. KCL 20 mEq 2020- No [id number] 20meq Take 1 Univers tablet 6-26 07-27 tablet by ity of 00:00: 04:59 mouth [place] 00 :00 daily for Medical 30 days. Branch cholecalcif 2020- No [id number] 1999U Take 2 Univers nuno, 6-26 07-27 tablets by ity of vitamin D3, 00:00: 04:59 [place] 25 mcg 00 :00 daily for Medical (1,000 30 days. Branch unit) tablet cyanocobala 2020- No [id number] 1000ug inject 1 Univers min 1,000 6-26 07-27 mL under ity o f mcg/mL 00:00: 04:59 the skin [place] injection 00 :00 every 24 Medica l (twenty-fo Branch ur) hours for 30 days. KCL 20 mEq 2020- No [id number] 20meq Take 1 Univers tablet 6- 07-27 [...] ity o f mL oral 13:10: daily. [place] solution 25 Medical Branch pantoprazol [...] unresponsi ve to Ondansetro n proMETHazin Yes [id number] 12.5mg Take 1 Univers e 12.5 mg 6-25 tablet by ity o f tablet 00:00: mouth [place] 00 every 6 Medical (six) Branch hours as needed for Nausea and Vomiting (N/V) or N/V unresponsi ve to Ondansetro n. proMETHazin Yes [id number] 12.5mg Take 1 Univers e 12.5 mg 6-25 tablet by ity o f tablet 00:00: mouth [place] 00 every 6 Medical (six) Branch hours as needed for Nausea and Vomiting (N/V) or N/V unresponsi ve to Ondansetro n. proMETHazin Yes [id number] 12.5mg Take 1 Univers e 12.5 mg 6-25 tablet by ity o f tablet 00:00: mouth [place] 00 every 6 Medical (six) Branch hours as needed for Nausea and Vomiting (N/V) or N/V unresponsi ve to Ondansetro n. proMETHazin Yes [id number] 12.5mg Take 1 Univers e 12.5 mg 6-25 tablet by ity o f tablet 00:00: mouth [place] 00 every 6 Medical (six) Branch hours as needed for Nausea and Vomiting (N/V) or N/V unresponsi ve to Ondansetro n. proMETHazin Yes [id number] 12.5mg Take 1 Univers e 12.5 mg 6-25 tablet by ity o f tablet 00:00: mouth [place] 00 every 6 Medical (six) Branch hours as needed for Nausea and Vomiting (N/V) or N/V unresponsi ve to Ondansetro n. proMETHazin Yes [id number] 12.5mg Take 1 Univers e 12.5 mg 6-25 tablet by ity o f tablet 00:00: mouth [place] 00 every 6 Medical (six) Branch hours as needed for Nausea and Vomiting (N/V) or N/V unresponsi ve to Ondansetro n. proMETHazin Yes [id number] 12.5mg Take 1 Univers e 12.5 mg 6-25 tablet by ity o f tablet 00:00: mouth [place] 00 every 6 Medical (six) Branch hours as needed for Nausea and Vomiting (N/V) or N/V unresponsi ve to Ondansetro n. furosemide 2020- No [id number] 40mg Take 1 Univers 40 mg 6-25 07-26 tablet by ity of tablet 00:00: 04:59 mouth [place] 00 :00 every Medical morning Branch and evening for 30 days. lipase-prot 2020- No [id number] 2{capsu Take 2 Univers ease-amylas 6-25 07-26 le} capsules ity of e 00:00: 04:59 by mouth 3 [place] 12,000-38,0 00 :00 (three) Medic al 00 -60,000 times Branch unit daily with capsule meals for 30 days. lactobacill 2020- No [id number] .5mg Take 1 Univers us 6-25 07-26 tablet by ity of acidophilus 00:00: 04:59 mouth 2 [place] 00 :00 (two) Medical times Branch daily for 30 days. furosemide 2020- No [id number] 40mg Take 1 Univers 40 mg 6-25 07-26 tablet by ity of tablet 00:00: 04:59 mouth [place] 00 :00 every Medical morning Branch and evening for 30 days. lipase-prot 2020- No [id number] 2{capsu Take 2 Univers ease-amylas 6-25 07-26 le} capsules ity of e 00:00: 04:59 by mouth 3 [place] 12,000-38,0 00 :00 (three) Medic al 00 -60,000 times Branch unit daily with capsule meals for 30 days. lactobacill 2020- No [id number] .5mg Take 1 Univers us 6-25 07-26 tablet by ity of acidophilus 00:00: 04:59 mouth 2 [place] 00 :00 (two) Medical times Branch daily for 30 days. vancomycin 2020- No [id number] 125mg Take 1 Univers 125 mg 6-25 07-06 capsule by ity of capsule 00:00: 04:59 mouth 4 [place] 00 :00 (four) Medical times Branch daily for 10 days. vancomycin 2020- No [id number] 125mg Take 1 Univers 125 mg 6-25 [...] Indication s: acute pain cephALEXin 2020- No [id number] 500mg Take 1 Univers 500 mg 10-03 capsule by ity of capsule 00:00: 04:59 mouth 4 [place] 00 :00 (four) Medical times Branch daily for 5 days. cephALEXin 2020- No [id number] 500mg Take 1 Univers 500 mg 10-03 [...] QHSPRN, [place] mg 57 Starting Medical [facility] Branch 09/29/20 at 2251, Until Discontinu ed, Routine, Insomnia D5W 0.45% 2020- No IV Univers NaCl 09-29 Infusion, ity of (1/2NS) 1 L 21:00: 21:15 at 100 Quang as + KCL 20 00 :40 mL/hr, Medical mEq CONTINUOUS Branch , Starting [facility] 09/29/20 at 1600, Until Tue09/30/20 at 1615, Routine cholecalcif Yes 2000U 2,000 [facility] ers nuno 09-29 Units, ity of (vitamin 20:00: Oral, [place] D3) tablet 00 DAILY, Medical 2,000 Units First dose Br anch on [facility] 09/29/20 at 1500, Until Discontinu ed, Routine lactobacill Yes .5mg 0.5 mg, Uni vers us 09-29 Oral, BID, ity of acidophilus 14:15: First dose [place] tablet 0.5 00 on [facility] Medical mg 09/29/20 at Branch 0915, Until Discontinu ed, Routine KCL Yes 20meq 20 mEq, Univers (KLOR-CON 09-29 Oral, ity of M20) tablet 14:00: DAILY, [place] 20 mEq 00 First dose Medical (after Branch last reorder) on [facility] 09/29/20 at 0900, Until Discontinu ed, Routine lipase-prot Yes 2{capsu 2 capsule, Univers ease-amylas 09-29 le} Oral, TID ity of e (CREON) 08:45: MEALS, [place] 12,000-38,0 00 First dose Me dical 00 -60,000 on [facility] Branch unit 09/29/20 at capsule 2 [...] :00 s, ONCE, 1 Medic al dose, [facility] 09/29/20 at 0245, Routine FENTanyl PF 2020- No 50ug 50 mcg, Un marline (SUBLIMAZE 09-29 Slow IV ity o f (PF)) 07:30: 06:27 Push, [place] injection 00 :00 ONCE, 1 Medical 50 mcg dose, [facility] 09/29/20 at 0230, Routine piperacilli 2020-2020- No 3.375g 3.375 g, Univers n-tazobacta 09-29 IV ity of m (ZOSYN) 07:30: 07:00 Piggyback, [place] 3.375 g in 00 :00 ONCE, 1 Medica l NaCl 0.9% dose, [facility] Branc h (NS) 100 mL 09/29/20 [...] injection 4 17 Starting Medi molly mg [facility] Branch 09/29/20 at 0142, Until Discontinu ed, Routine, Nausea and Vomiting (N/V) iopamidol 2020- No [id number] 100mL 100 mL, Univers (ISOVUE 09-29 Intravenou [...] Until 09/29/20 at 0138, Routine Meloxicam Meloxicam 2019- No Gm 1 tablet Common 09-17- Singh Spirit 00:00: 00:00 - [facility] 00 :00 [facility] flu vaccine 2020- No .5mL 0.5 mL, [...] 33 :00 times Medical daily. Branch iohexol 2020- No 120mL 120 mL, Unive rs [...] for Pain (scale 4-6). acetaminoph 2020-0 Yes [id number] 1{tbl} Take 1 Univers en-codeine 5-02 tablet by ity of 300-30 mg 00:00: mouth [place] tablet 00 every 4 Medical (four) Branch hours as needed for Pain (scale 4-6). acetaminoph 2020-0 Yes [id number] 1{tbl} Take 1 Univers en-codeine 5-02 tablet by ity of 300-30 mg 00:00: mouth [place] tablet 00 every 4 Medical (four) Branch hours as needed for Pain (scale 4-6). acetaminoph 2020-0 Yes [id number] 1{tbl} Take 1 Univers en-codeine 5-02 tablet by ity of 300-30 mg 00:00: mouth [place] tablet 00 every 4 Medical (four) Branch hours as needed for Pain (scale 4-6). lactulose 2019-0 2020- No [id number] 30mL Take 30 mL Univers 10 gram/15 5-05 17- by mouth 2 it y of mL oral 00:00: 04:59 (two) [place] solution 00 :00 times Medical daily for Branch 30 days. pantoprazol 2019-0 2020- No [id number] 40mg Take 1 Univers e 40 mg EC -05 17- tablet by ity of tablet 00:00: 04:59 mouth [place] 00 :00 daily for Medical 30 days. Branch lactulose 2019-0 2020- No [id number] 30mL Take 30 mL Univers 10 gram/15 -05 17-02 by mouth 2 it y of mL oral 00:00: 04:59 (two) [place] solution 00 :00 times Medical daily for Branch 30 days. pantoprazol 2019-0 2020- No [id number] 40mg Take 1 Univers e 40 mg EC -05 17- tablet by ity of tablet 00:00: 04:59 mouth [place] 00 :00 daily for Medical 30 days. Branch propranolol 2019-0 2020- No [id number] 10mg Take 1 Univers 10 mg 5- [...] 600mg Take 1 Univ ers 600 mg 6-18 05-02 tablet by ity of tablet 00:00: [...] cream daily. Pantoprazol Pantoprazol Yes Gm not Common e Sodium e Sodium Singh defined Spir [facility] Acetaminoph Acetaminoph Yes Gm not Common en-Codeine en-Codeine Singh defined [facility] #3 #3 [facility] Oseltamivir Oseltamivir Yes Gm not Common Phosphate Phosphate Singh defined Sp cleopatra [facility] Levofloxaci Levofloxaci Yes Gm not Common n n Singh defined [facility] Xifaxan Xifaxan Yes Gm not Common Singh defined [facility] Lactulose Lactulose Yes Gm not Co mmon Singh defined [facility] Albuterol Albuterol Yes Gm not Co mmon Sulfate HFA Sulfate HFA Singh defined [facility] Azithromyci Azithromyci Yes Gm not Common n n Singh defined [facility] Amoxicillin Amoxicillin Yes Gm not Common -Pot -Pot Singh defined Spirit Clavulanate Clavulanate - [facility] Immunizations Ordered Filled Immunization Date Status Comments [facility] e Immunization Name Name Pneumococcal 2020-10-03 [...] Unive rsity of MODERNA VACCINE 00:00:00 [facility] ical Branch SARS-COV-2 COVID-19 2020-08-08 Completed Unive rsity of MODERNA VACCINE 00:00:00 [facility] ical Branch SARS-COV-2 COVID-19 2020-08-08 Completed Unive rsity of MODERNA VACCINE 00:00:00 [facility] ical Branch SARS-COV-2 COVID-19 2020-08-08 Completed Unive rsity of MODERNA VACCINE 00:00:00 [facility] ical Branch SARS-COV-2 COVID-19 2020-08-08 Completed Unive rsity of MODERNA VACCINE 00:00:00 [facility] ical Branch SARS-COV-2 COVID-19 2020-08-08 Completed Unive rsity of MODERNA VACCINE 00:00:00 [facility] ical Branch SARS-COV-2 COVID-19 2020-08-08 Completed Unive rsity of MODERNA VACCINE 00:00:00 [facility] ical Branch SARS-COV-2 COVID-19 2020-08-08 Completed Unive rsity of MODERNA VACCINE 00:00:00 [facility] SARS-COV-2 COVID-19 2020-07-11 Completed Unive rsity of MODERNA VACCINE 00:00:00 [facility] SARS-COV-2 COVID-19 2020-07-11 Completed Unive rsity of MODERNA VACCINE 00:00:00 [facility] SARS-COV-2 COVID-19 2020-07-11 Completed Unive rsity of MODERNA VACCINE 00:00:00 [facility] SARS-COV-2 COVID-19 2020-07-11 Completed Unive rsity of MODERNA VACCINE 00:00:00 [facility] SARS-COV-2 COVID-19 2020-07-11 Completed Unive rsity of MODERNA VACCINE 00:00:00 [facility] SARS-COV-2 COVID-19 2020-07-11 Completed Unive rsity of MODERNA VACCINE 00:00:00 [facility] SARS-COV-2 COVID-19 2020-07-11 Completed Unive rsity of MODERNA VACCINE 00:00:00 [facility] SARS-COV-2 COVID-19 2020-07-11 Completed Unive rsity of MODERNA VACCINE 00:00:00 [facility] Influenza Virus 2019-08-11 Completed Universit y of Vaccine Quad .5 mL 00:00:00 [facility] 6+ MO Branch Influenza Virus 2019-08-11 Completed Universit y of Vaccine [place] .5 mL 00:00:00 [facility] 6+ MO Branch Influenza [...] y of Vaccine Quad .5 mL 00:00:00 [facility] 6+ MO Branch Influenza Virus 2019-08-11 Completed Universit y of Vaccine [place] .5 mL 00:00:00 [place] [facility] 6+ MO Branch Influenza Virus 2019-08-11 Completed Universit y of Vaccine [place] .5 mL 00:00:00 [facility] IM 6+ MO Branch Influenza Virus 2019-08-11 Completed Universit y of Vaccine [place] .5 mL 00:00:00 [facility] IM 6+ MO Branch Influenza Virus 2019-08-11 Completed Universit y of Vaccine [place] .5 mL 00:00:00 [facility] IM 6+ MO Branch Influenza Virus 2019-08-11 Completed Universit y of Vaccine Quad .5 mL 00:00:00 [facility] IM 6+ MO Branch Vital Signs Vital Name Observation Time Observation Value Comments Source Systolic blood 2021-04-02 18:55:00 138 mm[Hg] Univer sity of pressure [facility] Diastolic blood 2021-04-02 18:55:00 104 mm[Hg] Unive rsity of pressure [facility] Heart rate 2021-04-02 18:55:00 74 /min Universi ty [facility] Body temperature 2021-04-02 18:55:00 36.78 [facility] ersity [facility] Respiratory rate 2021-04-02 18:55:00 18 /min Univ ersity of [facility] Body weight 2021-04-02 18:55:00 122.471 kg Universi ty [facility] BMI 2021-04-02 18:55:00 46.35 kg/m2 Universi ty [facility] Oxygen saturation in 2021-04-02 18:55:00 97 /min University of Arterial blood by [facility] Pulse oximetry Branch Systolic blood 2020-10-03 17:23:00 132 mm[Hg] Univer sity of pressure [facility] Diastolic blood 2020-10-03 17:23:00 56 mm[Hg] Unive rsity of pressure [facility] Heart rate 2020-10-03 17:23:00 88 /min Universi ty of [facility] Body temperature 2020-10-03 17:23:00 36.94 [place] Univ ersity of [facility] Respiratory rate 2020-10-03 17:23:00 18 /min Univ ersity [facility] Oxygen saturation in 2020-10-03 17:23:00 94 /min University of Arterial blood by [facility] Pulse oximetry Branch Body weight 2020-09-30 08:11:00 121.473 kg Universi ty of [place] [facility] BMI 2020-09-30 08:11:00 47.44 kg/m2 Universi ty of [place] [facility] Body height 2020-09-29 03:33:00 160 cm Universi ty of [place] [facility] Diastolic blood 2019-08-11 20:04:00 44 mm[Hg] Unive rsity of pressure [facility] Heart rate 2019-08-11 20:04:00 70 /min Universi ty of [place] [facility] Body temperature 2019-08-11 20:04:00 36.61 [place] [facility] ersity of [place] [facility] Respiratory rate 2019-08-11 20:04:00 18 /min Univ ersity of [place] [facility] Oxygen saturation in 2019-08-11 20:04:00 91 /min University of Arterial blood by [facility] Pulse oximetry Branch Systolic blood 2019-08-11 20:04:00 107 mm[Hg] Univer sity of [facility] Body height 2019-08-10 08:01:00 162.6 cm Universi ty [facility] [place] [facility] Body weight 2019-08-10 08:01:00 119.296 kg Universi ty of [place] [facility] BMI 2019-08-10 08:01:00 45.14 kg/m2 Universi ty of [place] [facility] Diastolic blood 2019-08-11 20:04:00 44 mm[Hg] Unive rsity of [facility] Heart rate 2019-08-11 20:04:00 70 /min Universi ty [facility] [place] [facility] Body temperature 2019-08-11 20:04:00 36.61 [place] Univ ersity of [place] [facility] Respiratory rate 2019-08-11 20:04:00 18 /min Univ ersity of [place] [facility] Oxygen saturation in 2019-08-11 20:04:00 91 /min University of Arterial blood by [facility] Pulse oximetry Branch Systolic blood 2019-08-11 20:04:00 107 mm[Hg] Univer sity of [facility] Body height 2019-08-10 08:01:00 162.6 cm Universi ty of [place] [facility] Body weight 2019-08-10 08:01:00 119.296 kg Universi ty [facility] [place] [facility] BMI 2019-08-10 08:01:00 45.14 kg/m2 [facility]i ty [facility] [place] [facility] Procedures Procedure Date / Time Performing Clinician Source Performed XR KNEE 3 VW LEFT 2021-04-02 20:10:39 Kinsey [facility] CONSENT/REFUSAL FOR 2021-04-02 17:59:31 [facility] DIAGNOSIS AND TREATMENT [place] [facility] ASSIGNMENT OF BENEFITS 2021-03-10 20:29:46 Doctor Unassigned, [facility] [place] [facility] PHOSPHORUS 2020-10-03 08:52:00 [facility] 2020-10-03 08:52:00 [facility] COMP. METABOLIC PANEL 2020-10-03 08:52:00 [place] [facility] ([id number]) [facility] CBC WITH DIFF 2020-10-03 08:52:00 [place] [facility] COMP. METABOLIC PANEL 2020-10-02 08:39:00 [id number] CBC WITH DIFF 2020-10-02 08:39:00 [facility] US DUPLEX VENOUS ARM LEFT 2020-10-01 16:22:58 Brenda Teixeira [facility] - BY VASCULAR LAB [facility] COMP. METABOLIC PANEL 2020-10-01 07:45:00 Tomasa Escamilla [facility] ([id number]) [facility] CBC WITH DIFF 2020-10-01 07:45:00 Tomasa Escamilla [facility] TROPONIN I 2020-09-30 10:56:[address] [facility] COMP. METABOLIC PANEL 2020-09-30 10:56:00 Millie sharad [facility] ([id number]) [facility] CBC WITH DIFF 2020-09-30 10:56:00 Millie sharad [facility] N-TERMINAL PRO-BNP 2020-09-30 08:05:00 Wes Brito [facility] OCCULT (GUAIAC) BLOOD 2020-09-30 02:10:00 Millie [facility] FECAL LEUKOCYTES 2020-09-30 02:10:00 Millie sharad [facility] CLOSTRIDIUM DIFFICILE 2020-09-30 02:10:[address] [facility] FECAL PATHOGENS BY PCR 2020-09-30 02:10:00 Wes Brito [facility] POCT GLUCOSE (AUTOMATED) 2020-09-30 00:35:[address] [facility] BASIC METABOLIC PANEL 2020-09-29 21:11:00 Wes Brito [facility] (NA, K, CL, CO2, GLUCOSE, Medica l Branch BUN, CREATININE, CA) HEMOGLOBIN 2020-09-29 21:11:00 Tomasa Escamilla [facility] TRANSTHORACIC ECHO (TTE) 2020-09-29 16:03:00 Marco Levy [facility] HB ECG ROUTINE & RHYTHM 2020-09-29 11:18:58 Wes Brito [facility] OSMOLALITY URINE 2020-09-29 08:56:00 Millie [facility] URINE CULTURE 2020-09-29 08:56:00 Millie sharad [facility] SODIUM, URINE RANDOM 2020-09-29 08:56:00 Wes Brito [facility] PROTEIN CREAT RATIO URINE 2020-09-29 08:56:00 Wes Brito [facility] BLOOD CULTURE SCREEN 2020-09-29 08:32:00 Wes Brito [facility] LACTIC ACID WHOLE BLOOD 2020-09-29 08:32:00 Millie sharad [facility] VITAMIN B12, LEVEL 2020-09-29 08:31:00 Wes Brito [facility] C-REACTIVE PROTEIN 2020-09-29 08:31:00 Wes Brito [facility] IRON PANEL 2020-09-29 08:31:00 Millie shraad [facility] SEDIMENTATION RATE 2020-09-29 08:31:00 Wes Brito [facility] DIFF CONSULT 2020-09-29 08:31:[address] [facility] CBC WITH DIFF 2020-09-29 08:31:00 Millie [facility] PROTHROMBIN TIME / INR 2020-09-29 08:31:00 Wes Brito [facility] N-TERMINAL PRO-BNP 2020-09-29 08:31:00 Wes Brito [facility] VITAMIN D, 25-OH 2020-09-29 08:31:00 Millie [facility] PROCALCITONIN 2020-09-29 08:31:00 Millei sharad [facility] COVID-19 (ID NOW RAPID 2020-09-29 05:10:00 Rene Evans [facility] TESTING) Medical Branch LAB ONLY COVID 2020-09-29 05:10:00 Rene Evans [facility] INTERPRETATION [facility] CT ABDOMEN PELVIS W 2020-09-29 04:56:31 Rene Evans [facility] CONTRAST [facility] Branch URINALYSIS 2020-09-29 04:19:00 Rene Evans [facility] PHOSPHORUS 2020-09-29 03:54:00 Millie sharad [facility] CREATINE KINASE 2020-09-29 03:54:00 Millie sharad [facility] URIC ACID 2020-09-29 03:54:00 Millie sharad [facility] LIPASE 2020-09-29 03:54:00 Rene Evans [facility] MAGNESIUM 2020-09-29 03:54:00 Millie [facility] FERRITIN SERUM 2020-09-29 03:54:00 Millie [facility] TROPONIN I 2020-09-29 03:54:[address] [facility] THYROID STIMULATING 2020-09-29 03:54:00 Wes Brito [facility] HORMONE Medical Branch COMP. METABOLIC PANEL 2020-09-29 03:54:00 Rene Evans [facility] ([id number]) [facility] [place] LIPID PANEL ([id number])(TOTAL 2020-09-29 03:54:00 Wes Brito [facility] CHOLESTEROL, [facility] TRIGLYCERIDES, HDL) CBC WITH DIFF 2020-09-29 03:54:00 Rene Evans [facility] GLYCOSYLATED HEMOGLOBIN 2020-09-29 03:54:00 Wes Brito [facility] (A1C) [facility] N-TERMINAL PRO-BNP 2020-09-29 03:54:00 Wes Brito [facility] CONSENT/REFUSAL FOR 2020-09-29 03:18:51 Doctor Unassigned, [facility] NOTICE OF PRIVACY 2020-09-29 03:18:30 Doctor Unassigned, [facility] PRACTICES [place] [facility] [place] CT ABDOMEN PELVIS W 2019-08-11 14:50:46 Corby Ca [facility] CONTRAST [facility] [facility] COMP. METABOLIC PANEL 2019-08-11 08:00:00 Wes Brito [facility] ([id number]) [facility] CBC WITH DIFFERENTIAL 2019-08-11 08:00:00 Millie sharad [facility] CBC WITH DIFFERENTIAL 2019-08-11 08:00:00 Wes Brito [facility] XR SMALL BOWEL SERIES 2019-08-10 21:18:47 Valente Piña [facility] XR ABDOMEN 1 VW 2019-08-10 11:52:39 Wes Brito [facility] PHOSPHORUS 2019-08-10 11:11:00 Millie sharad [facility] CREATINE KINASE 2019-08-10 11:11:00 Millie sharad [facility] AMYLASE 2019-08-10 11:11:00 Millie sharad [facility] LIPASE 2019-08-10 11:11:00 Millie sharad [facility] MAGNESIUM 2019-08-10 11:11:00 Wes Brito [place] [facility] TEST, SERUM 2019-08-10 11:11:00 Wes Brito [facility] THYROID STIMULATING 2019-08-10 11:11:00 Wes Brito [facility] HORMONE [facility] COMP. METABOLIC PANEL 2019-08-10 11:11:00 Wes Brito [facility] ([id number]) [facility] LIPID PANEL (74611)(TOTAL 2019-08-10 11:11:00 Wes Brito [facility] CHOLESTEROL, [facility] TRIGLYCERIDES, HDL) SEDIMENTATION RATE 2019-08-10 11:11:00 Wes Brito [facility] CBC WITH DIFFERENTIAL 2019-08-10 11:11:00 Wes Brito [facility] GLYCOSYLATED HEMOGLOBIN 2019-08-10 11:11:00 Wes Brito [facility] (A1C) [facility] PROTHROMBIN TIME / INR 2019-08-10 11:11:00 Wes Brito [facility] CORONAVIRUS COVID-19 2019-08-10 09:04:00 Wes Brito [facility] TESTING [facility] Encounters Start End Encounter Admission Attending Care Care Encounter Source Date/Time Date/Time Type Type Clinicians Facility Department ID 2021-05-06 Outpatient Kattegummul [facility] [id number] Common 14:30:56 Madhu peterson [facility] 2021-05-06 Outpatient Kattegummul [facility] [id number] Common 14:26:04 kristen, Madhu [id number] [facility] 2021-05-06 Outpatient Kattegummul [facility] [id number] Common 14:05:28 Madhu peterson [id number] [facility] 2021-05-06 Outpatient Kattegummul [facility] [id number] Common 13:37:29 Madhu peterson [id number] [facility] 2021-05-06 [facility] [place] [id number] Common 13:36:02 Annalise [id number] [facility] 2021-05-06 Outpatient Harley [facility] [id number] Common 11:25:36 Annalise [id number] [facility] 2021-02-09 Emergency [facility] [id number] Univers 02:25:27 ity [facility] 2021-04-07 2021-04-07 Letter Orthopedic [facility] 1.2.840.114 [id number] Univers 00:00:00 00:00:00 (Out) Clinic SPECIALTY 350.1.13.10 ity of [facility] 4.2.7.2.686 [facility] AT [phone] 2021-04-02 2021-04-02 Emergency X BEATRIZRUST ERT [id number] Univers 12:58:00 15:25:00 [facility] 2021-04-02 2021-04-02 Emergency ramonlaverneRUST 1.2.840.114 [id number] Univers 12:58:00 15:25:00 [facility] 350.1.13.10 ity [facility] 4.2.7.2.686 [facility] [phone] [facility] [address] 2021-03-11 2021-03-11 Telephone VERONIQUE Cruz [id number] [id number] Univers 00:00:00 00:00:00 Frances SÁNCHEZ 350.1.13.10 it y of [facility] 4.2.7.2.686 Quang [id number] [facility] [address] 2021-03-10 2021-03-10 Outpatient R NETTIE [facility] [id number] Univers 14:45:00 14:51:40 [facility] 2021-03-10 2021-03-10 Outpatient R [facility] [id number] Univers 14:45:00 14:45:00 [id number] ity [facility] 2021-03-10 2021-03-10 Laboratory Only, Ang Db Test [facility] 1.2.8 40.114 [id number] Univers 14:29:53 14:44:53 Only Unknown, Attending HEALTH 350.1.13.10 ity of [place] 4.2.7.2.686 Quang as MARINA?BLEA [phone] [address] MEDICAL OFFICE BUILDING 2021-03-10 2021-03-10 Orders Doctor VERONIQUE 1.2.840.114 [id number] Univers 00:00:00 00:00:00 Only Unassigned, GONZALO 350.1.13.10 ity of [place] [facility] 4.2.7.2.686 Quang as [id number] [facility] [address]9 [address] 2021-02-18 2021-02-20 Inpatient JAIME, [facility] [id number] 623 [place] 00:00:00 00:00:00 CHERI [address] 2021-02-03 2021-02-04 Emergency X [facility] ERT [id number] Univers 21:10:00 03:21:00 GARTH ity of [facility] 2020-10-21 2020-10-27 Inpatient SYLVIA, [facility] [id number] 5807 [place] 00:00:00 00:00:00 ROBERTH [address] 2020-10-06 2020-10-06 Transition Jocelyne Taylor 1.2.840.114 [id number] Univers 00:00:00 00:00:00 of Care Madiha Sotelo 350.1.13.10 i ty [place] [phone] [facility] 403 Branch 2020-09-28 2020-10-03 [facility] Rene Evans [facility] 1.2.840. 114 [id number] Univers 22:23:00 13:05:00 Encounter MillieWes 350.1.13.10 ity of [place]2.[place] [id number] [facility] 081 Branch 2020-09-28 2020-09-28 Orders Doctor VERONIQUE 1.2.840.114 [id number] Univers 00:00:00 00:00:00 Only Unassigned, GONZALO 350.1.13.10 ity of [place] [facility] 4.2.7.2.686 Quang as [phone] [facility] 009 Branch 2020-09-09 2020-09-12 Inpatient VIKTOR BILLINGS [facility] [id number] 68170 [place] 00:00:00 00:00:00 462 Method i 2020-08-08 2020-08-08 Outpatient Sami GERMAN, [facility] [id number] Univers 15:40:00 15:40:00 TERRI ity [facility] 2020-07-11 2020-07-11 Outpatient [facility] [id number] Univers 15:40:00 15:40:00 ity [facility] 2020-06-09 2020-06-22 Inpatient VIKTOR BILLINGS [facility] [id number] 02883 [place] 00:00:00 00:00:00 836 Method i 2020-03-19 2020-03-23 Inpatient DINAKAR, [facility] 600 [id number] 848 [place] 00:00:00 00:00:00 CHERI 742 Method i 2020-03-14 2020-03-18 Inpatient DINAKAR, [facility] 615 [id number] 585 [place] 00:00:00 00:00:00 CHERI 157 Method i 2020-02-13 2020-02-13 Laboratory Lab, [facility] 1.2.840.114 [id number] 10:22:10 10:42:10 Only Fam Pob I Health 350.1.13.10 [place] 4.2.7.2.686 Professio [phone] nal [facility] Office Building [facility] 2020-02-13 2020-02-13 Laboratory Lab, [facility] Fam Pob I HIMB 1.2. 840.114 [id number] [facility] 10:22:10 10:42:10 Only Dulce Mari A Health 350.1.13.10 ity of [place] 4.2.7.2.686 Quang as Professio [phone] Ct dical [address] Office Building One 2019-09-28 2019-09-28 Outpatient [facility] [id number] Common 09:00:00 09:00:00 t [facility] 2019-09-18 2019-09-18 Outpatient [facility] [id number] Common 09:30:00 09:30:00 t [facility] Sp[facility] 2019-08-14 2019-08-14 Transition Nasrin, Yelenali 1.2.840.114 [id number] 00:00:00 00:00:00 of Care Jovanny Sotelo 350.1.13.10 [place] 4.2.7.2.686 [id number] [id number] 2019-08-14 2019-08-14 Transition NasrinYelena ambrizli 1.2.840.114 [id number] Univers 00:00:00 00:00:00 of Care Jovanny Sotelo 350.1.13.10 [phone] [place] [address] Branch 2019-08-10 2019-08-11 [facility] 1.2.997.490 [id number] 02:55:00 16:09:00 Encounter Wes Amin 350.1.13.10 [place] 4.2.7.2.686 [place] [id number] 1 2019-08-10 2019-08-11 Inpatient U [facility] SHRUTI [id number] Univers 02:55:00 16:09:00 VENKATESHNAN ity [facility] 2019-08-10 2019-08-11 [facility] 1.2.233.224 [id number] Univers 02:55:00 16:09:00 Encounter Wes [place] 350.1.13.10 ity of [place] [phone] [address] Results Test Description Test Time Test Comments Results Result Comments Source MAGNESIUM 2020-10-03 09:34:08 Test Item Value Reference Range Interpretation Comme nts MAGNESIUM (test code = 1453269628) 1.4 mg/dL 1.7-2.4 L Lab Interpretation (test code = 70813-0) [facility]normal [facility]39704[facility]2020-10-03 09:33:48 Test Item Value Reference Range Interpretation Comments NA (test code = 136 mmol/L 135-145 6382607890) K (test code = 3.3 mmol/L 3.5-5.0 L 0165342080) CL (test code = 100 mmol/L 98-108 0163541921) CO2 TOTAL (test code = 33 mmol/L 23-31 H 1539360211) AGAP (test code = 2-16 2634493772) BUN (test code = 3 mg/dL 7-23 L 7905247523) GLUCOSE (test code = 95 mg/dL 70-110 0813606800) CREATININE (test code = 0.47 mg/dL 0.50-1.04 L 2422661851) TOTAL BILI (test code = 1.5 mg/dL 0.1-1.1 H 9827145347) CALCIUM (test code = 8.1 mg/dL 8.6-10.6 L 3023129786) T PROTEIN (test code = 5.9 g/dL 6.3-8.2 L 4437718060) ALBUMIN (test code = 2.9 g/dL 3.5-5.0 L 9080648284) ALK PHOS (test code = 115 U/L 34-122 8943334091) ALTv (test code = 24 U/L 5-35 1742-6) AST(SGOT) (test code = 35 U/L 13-40 7387034983) eGFR (test code = mL/min/1.73m2 5831552630) SNOW (test code = SNOW) Association of [...] tests). Lab Interpretation Abnormal (test code = 92965-1) [facility] 09:33:28 Test Item Value Reference Range Interpretation Comments PHOSPHORUS (test code = 8085428121) 2.8 mg/dL 2.5-5.0 Lab Interpretation (test code = Normal 10445-0) [facility] [id number] 09:31:46 Test Item Value Reference Range Interpretation [...] (test code = 53.8 fL 39.0-49.9 H 09736-4) RDW-CV (test code = 19.9 % 12.0-15.5 H 788-0) PLT (test code = See_Comment L [Automated 777-3) message] The sy stem which generated this result transmitted reference range : 166 - 358 10*3/ ?L. The reference r davi was not used to interpret this result as normal/abnormal . MPV (test code = 10.9 fL 9.5-12.9 77931-4) IPF % (test code = 3.6 % 1.3-7.7 Platelet count 4773611367) measured by fluorescence method. NRBC/100 WBC (test See_Comment [Automat ed code = 8977615429) message] The system which generated this result transmitted reference range : 0.0 - 10.0 /100 WBCs. The refer ence range was not u sed to interpret th is result as normal/abnormal . NRBC x10^3 (test code See_Comment [Auto mated = 1721760552) message] The s ystem which generated this result transmitted reference range : 10*3/?L. The reference range was not used to interpret this result as normal/abnormal . GRAN MAT (NEUT) % 68.1 % (test code = 770-8) IMM GRAN % (test code 1.10 % = 8163524291) LYMPH % (test code = 15.5 % 736-9) MONO % (test code = 11.3 % 5905-5) EOS % (test code = 3.4 % 713-8) BASO % (test code = 0.6 % 706-2) GRAN MAT x10^3(ANC) 2.42 10*3/uL 1.88-7.09 (test code = 7979881771) IMM GRAN x10^3 (test 0.04 10*3/uL 0.00-0.06 code = 7163815564) LYMPH x10^3 (test code 0.55 10*3/uL 1.32-3.29 L = 731-0) MONO x10^3 (test code 0.40 10*3/uL 0.33-0.92 = 742-7) EOS x10^3 (test code = 0.12 10*3/uL 0.03-0.39 711-2) BASO x10^3 (test code <0.03 0.01-0.07 = 704-7) Lab Interpretation Abnormal (test code = 84159-4) [facility] WITH [id number] 10:47:09 Test Item Value Reference Range Interpretation [...] (test code = 52.2 fL 39.0-49.9 H 23037-0) RDW-CV (test code = 18.6 % 12.0-15.5 H 788-0) PLT (test code = See_Comment L [Automated 777-3) message] The sy stem which generated this result transmitted reference range : 166 - 358 10*3/ ?L. The reference r davi was not used to interpret this result as normal/abnormal . MPV (test code = 10.1 fL 9.5-12.9 99184-7) IPF % (test code = 3.2 % 1.3-7.7 Platelet count 6130420034) measured by fluorescence method. NRBC/100 WBC (test See_Comment [Automat ed code = 2789693320) message] The system which generated this result transmitted reference range : 0.0 - 10.0 /100 WBCs. The refer ence range was not u sed to interpret th is result as normal/abnormal . NRBC x10^3 (test code See_Comment [Auto mated = 2760907070) message] The s ystem which generated this result transmitted reference range : 10*3/?L. The reference range was not used to interpret this result as normal/abnormal . GRAN MAT (NEUT) % 65.1 % (test code = 770-8) IMM GRAN % (test code 1.20 % = 0361094804) LYMPH % (test code = 16.9 % 736-9) MONO % (test code = 11.5 % 5905-5) EOS % (test code = 4.5 % 713-8) BASO % (test code = 0.8 % 706-2) GRAN MAT x10^3(ANC) 1.58 10*3/uL 1.88-7.09 L (test code = 3139555433) IMM GRAN x10^3 (test 0.03 10*3/uL 0.00-0.06 code = 4857735007) LYMPH x10^3 (test code 0.41 10*3/uL 1.32-3.29 L = 731-0) MONO x10^3 (test code 0.28 10*3/uL 0.33-0.92 L = 742-7) EOS x10^3 (test code = 0.11 10*3/uL 0.03-0.39 711-2) BASO x10^3 (test code <0.03 0.01-0.07 = 704-7) POLYCHROMASIA (test 2+ See_Comment [Automa josemanuel code = 65612-7) message] The system which generated this result transmitted reference range : 2+. The referen ce range was not u sed to interpret th is result as normal/abnormal . LG GRAN LYMPHS (test Rare Rare code = 8283073239) Lab Interpretation Abnormal (test code = 20269-9) [facility] (64363)2020-10-02 10:19:28 Test Item Value Reference Range Interpretation Comments NA (test code = 135 mmol/L 135-145 6747701083) K (test code = 3.4 mmol/L 3.5-5.0 L 8452461383) CL (test code = 104 mmol/L 98-108 2039041316) CO2 TOTAL (test code = 27 mmol/L 23-31 3415727645) AGAP (test code = 2-16 1339632245) BUN (test code = 4 mg/dL 7-23 L 1394540250) GLUCOSE (test code = 97 mg/dL 70-110 4521089463) CREATININE (test code = 0.45 mg/dL 0.50-1.04 L 5360672120) TOTAL BILI (test code = 1.7 mg/dL 0.1-1.1 H 4222603501) CALCIUM (test code = 8.2 mg/dL 8.6-10.6 L 3676491481) T PROTEIN (test code = 6.0 g/dL 6.3-8.2 L 2439311707) ALBUMIN (test code = 3.1 g/dL 3.5-5.0 L 2958462158) ALK PHOS (test code = 120 U/L 34-122 8974166963) ALTv (test code = 26 U/L 5-35 1742-6) AST(SGOT) (test code = 39 U/L 13-40 4363228306) eGFR (test code = mL/min/1.73m2 5833175529) SNOW (test code = SNOW) Association of [...] tests). Lab Interpretation Abnormal (test code = 32931-8) [facility] COVID [id number] 02:50:27COVID DMT InterpretationInterpretation/Recommendations: Molecular NAAT Tests for [...] [facility] [place] [facility] SERVICES[facility]OVID Resu vjoMOAX-GkU-6 NAAT (no units) ? ? Date ? Value ? 02/13/2020 ? Not Detected ? SARS-CoV-2 Rapid ID NOW (no units) ? ? Date ? Value ? 09/29/2020 ? Not Detected ? ? ? 08/10/2019 ? Not Detected ? [facility] SERVICESUnSt[facility]CB WITH [id number] 10:31:29 Test Item Value Reference Range Interpretation [...] (test code = 52.3 fL 39.0-49.9 H 59182-0) RDW-CV (test code = 18.4 % 12.0-15.5 H 788-0) PLT (test code = See_Comment LL [Automated 777-3) message] The sy stem which generated this result transmitted reference range : 166 - 358 10*3/ ?L. The reference r davi was not used to interpret this result as normal/abnormal . MPV (test code = 11.2 fL 9.5-12.9 56162-7) IPF % (test code = 3.9 % 1.3-7.7 Platelet count 8247006430) measured by fluorescence method. NRBC/100 WBC (test See_Comment [Automat ed code = 6428167287) message] The system which generated this result transmitted reference range : 0.0 - 10.0 /100 WBCs. The refer ence range was not u sed to interpret th is result as normal/abnormal . NRBC x10^3 (test code <0.01 See_Comment [Auto mated = 5025874937) message] The s ystem which generated this result transmitted reference range : 10*3/?L. The reference range was not used to interpret this result as normal/abnormal . GRAN MAT (NEUT) % 57.5 % (test code = 770-8) IMM GRAN % (test code 0.50 % = 4558187285) LYMPH % (test code = 20.7 % 736-9) MONO % (test code = 13.3 % 5905-5) EOS % (test code = 6.9 % 713-8) BASO % (test code = 1.1 % 706-2) GRAN MAT x10^3(ANC) 1.08 10*3/uL 1.88-7.09 L (test code = 1263059315) IMM GRAN x10^3 (test <0.03 0.00-0.06 code = 6415666900) LYMPH x10^3 (test code 0.39 10*3/uL 1.32-3.29 L = 731-0) MONO x10^3 (test code 0.25 10*3/uL 0.33-0.92 L = 742-7) EOS x10^3 (test code = 0.13 10*3/uL 0.03-0.39 711-2) BASO x10^3 (test code <0.03 0.01-0.07 = 704-7) BASO STIPPLING (test Present A code = 703-9) ELLIPTO/OVAL (test 2+ See_Comment A [Automat ed code = 33330-1) message] The system which generated this result transmitted reference range : (none). The reference range was not used to interpret this result as normal/abnormal . POLYCHROMASIA (test 2+ See_Comment [Automa josemanuel code = 85966-4) message] The system which generated this result transmitted reference range : 2+. The referen ce range was not u sed to interpret th is result as normal/abnormal . Lab Interpretation Abnormal (test code = 89652-8) [facility]. METABOLIC PANEL (06119)2020-10-01 09:19:22 Test Item Value Reference Range Interpretation Comments NA (test code = 135 mmol/L 135-145 2727595479) K (test code = 4.0 mmol/L 3.5-5.0 1270365582) CL (test code = 107 mmol/L 98-108 7633231939) CO2 TOTAL (test code = 24 mmol/L 23-31 4517012335) AGAP (test code = 2-16 4697122294) BUN (test code = 7 mg/dL 7-23 7254722542) GLUCOSE (test code = 93 mg/dL 70-110 2271879610) CREATININE (test code = 0.47 mg/dL 0.50-1.04 L 0844435194) TOTAL BILI (test code = 1.6 mg/dL 0.1-1.1 H 6134678988) CALCIUM (test code = 8.1 mg/dL 8.6-10.6 L 7014754578) T PROTEIN (test code = 5.8 g/dL 6.3-8.2 L 2498277938) ALBUMIN (test code = 2.8 g/dL 3.5-5.0 L 9043481260) ALK PHOS (test code = 106 U/L 34-122 1514016230) ALTv (test code = 23 U/L 5-35 1742-6) AST(SGOT) (test code = 39 U/L 13-40 4278084507) eGFR (test code = mL/min/1.73m2 8953718993) SNOW (test code = SNOW) Association of [...] tests). Lab Interpretation Abnormal (test code = 61492-9) [facility]ano[facility]ED[facility]UDWIG [id number] 20:47:45 Test Item Value Reference Range Interpretation Comments TROPONIN I (test 0.002 ng/mL See_Comment [Automated code = 1673332401) message] The system which generated this result [...] ? Lab Interpretation Normal (test code = 18867-6) [facility]ano[facility]INE [id number] 19:11:57 Test Item Value Reference Range Interpretation Comments URINE CULTURE (test code <10,000 CFU/mL = 630-4) Gram-Positive Cocci [facility] PATHOG[facility] BY [id number] 18:17:03 Test Item Value Reference Range Interpretation Comments Campylobacter (jejuni, Negative Negative, coli and upsaliensis) Indeterminate, (test code = 45482-0) See comment Plesiomonas shigelloides Negative Negative, (test code = 68068-1) Indeterminate, See comment Salmonella (test code = Negative Negative, 20498-0) Indeterminate, See comment Yersinia enterocolitica Negative Negative, (test code = 81818-0) Indeterminate, See comment Vibrio (test code = Negative Negative, 38814-3) Indeterminate, See comment Vibrio cholerae (test Negative Negative, code = 51171-5) Indeterminate, See comment Enteroaggregative E. Negative Negative, coli (EAEC) (test code = Indeterminate, 30076-6) See comment Enteropathogenic E. coli Negative Negative, N/A, (EPEC) (test code = Indeterminate, 64489-4) See comment Enterotoxigenic E. coli Negative Negative, (ETEC) (test code = Indeterminate, 10470-1) See comment Shiga toxin-Producing E. Negative Negative, coli (STEC) (test code = Indeterminate, 77041-0) See comment Shigella/Enteroinvasive Negative Negative, E. coli (EIEC) (test Indeterminate, code = 07520-5) See comment Cryptosporidium (test Negative Negative, code = 25195-8) Indeterminate, See comment Cyclospora cayetanensis Negative Negative, (test code = 41255-0) Indeterminate, See comment Entamoeba histolytica Negative Negative, (test code = 69072-9) Indeterminate, See comment Giardia lamblia (test Negative Negative, code = 86103-3) Indeterminate, See comment Adenovirus F 40/41 (test Negative Negative, code = 72003-4) Indeterminate, See comment Astrovirus (test code = Negative Negative, 44112-7) Indeterminate, See comment Norovirus GI/GII (test Negative Negative, code = 42526-3) Indeterminate, See comment Rotavirus A (test code = Negative Negative, 56802-9) Indeterminate, See comment Sapovirus (test code = Negative Negative, 90314-7) Indeterminate, See comment Clostridioides Positive Negative, A (Clostridium) difficile Indeterminate, Toxin A/B (test code = See comment 98837-6) SNOW (test code = SNOW) Based on FilmArray GI Panel package insert, the FilmArray GI Panel contains a single multiplexed assay [...] the binary toxin gene (CDT), and the qnxabu-mpln-ofro deletion at nucleotide 117 within the gene [...] organism. Lab Interpretation (test Abnormal code = 24090-4) [facility] [id number] 14:26:32 Test Item Value Reference Range Interpretation Comments Occult (guaiac) Blood (test code = Negative Negative 2335-8) Lab Interpretation (test code = Normal 90927-2) [facility] WITH [id number] 13:54:12 Test Item Value Reference Range Interpretation [...] (test code = 52.9 fL 39.0-49.9 H 29803-8) RDW-CV (test code = 18.3 % 12.0-15.5 H 788-0) PLT (test code = See_Comment LL [Automated 777-3) message] The sy stem which generated this result transmitted reference range : 166 - 358 10*3/ ?L. The reference r davi was not used to interpret this result as normal/abnormal . MPV (test code = 10.8 fL 9.5-12.9 04729-3) IPF % (test code = 4.2 % 1.3-7.7 Platelet count 8810991095) measured by fluorescence method. NRBC/100 WBC (test See_Comment [Automat ed code = 6253523871) message] The system which generated this result transmitted reference range : 0.0 - 10.0 /100 WBCs. The refer ence range was not u sed to interpret th is result as normal/abnormal . NRBC x10^3 (test code <0.01 See_Comment [Auto mated = 7538156980) message] The s ystem which generated this result transmitted reference range : 10*3/?L. The reference range was not used to interpret this result as normal/abnormal . GRAN MAT (NEUT) % 60.0 % (test code = 770-8) IMM GRAN % (test code 0.40 % = 2729535319) LYMPH % (test code = 20.6 % 736-9) MONO % (test code = 11.3 % 5905-5) EOS % (test code = 6.9 % 713-8) BASO % (test code = 0.8 % 706-2) GRAN MAT x10^3(ANC) 1.49 10*3/uL 1.88-7.09 L (test code = 0437327497) IMM GRAN x10^3 (test <0.03 0.00-0.06 code = 9875567930) LYMPH x10^3 (test code 0.51 10*3/uL 1.32-3.29 L = 731-0) MONO x10^3 (test code 0.28 10*3/uL 0.33-0.92 L = 742-7) EOS x10^3 (test code = 0.17 10*3/uL 0.03-0.39 711-2) BASO x10^3 (test code <0.03 0.01-0.07 = 704-7) Lab Interpretation Abnormal (test code = 60807-3) [facility]. METABOLIC PANEL (25100)2020-09-30 12:47:49 Test Item Value Reference Range Interpretation Comments NA (test code = 135 mmol/L 135-145 [id number]) K (test code = 4.0 mmol/L 3.5-5.0 0720241952) CL (test code = 108 mmol/L 98-108 8817979004) CO2 TOTAL (test code = 23 mmol/L 23-31 2487136324) AGAP (test code = 2-16 1067435526) BUN (test code = 8 mg/dL 7-23 6373218332) GLUCOSE (test code = 109 mg/dL 70-110 8554357814) CREATININE (test code = 0.52 mg/dL 0.50-1.04 3073344736) TOTAL BILI (test code = 1.7 mg/dL 0.1-1.1 H 1326136342) CALCIUM (test code = 8.0 mg/dL 8.6-10.6 L 0745807127) T PROTEIN (test code = 5.7 g/dL 6.3-8.2 L 9984696741) ALBUMIN (test code = 2.7 g/dL 3.5-5.0 L 2690999681) ALK PHOS (test code = 106 U/L 34-122 4688970361) ALTv (test code = 22 U/L 5-35 1742-6) AST(SGOT) (test code = 34 U/L 13-40 5264528953) eGFR (test code = mL/min/1.73m2 9343721006) SNOW (test code = SNOW) Association of [...] tests). Lab Interpretation Abnormal (test code = 63535-8) [facility] [id number] 11:49:39 Test Item Value Reference Range Interpretation Comments Fecal Leukocytes (test code = Positive Negative A 1743239946) Lab Interpretation (test code = Abnormal 83640-8) [facility] [id number] 10:20:53 Test Item Value Reference Range Interpretation Comments NT-proBNP (test code 68 pg/mL See_Comment [Autom ated = 9888459604) message] The system which generated this result transmitted reference range : <=125. The reference range was not used to interpret this result as normal/abnormal . SNOW (test code = SNOW) Biotin has been reported to cause a negative bias, interpret results relative to patient's use of biotin. Lab Interpretation Normal (test code = 12307-1) [facility]CLOSTRIDIUM DIFFICILE [id number] 05:18:16 Test Item Value Reference Range Interpretation Comments Clostridioides (Clostridium) Negative Negative difficile (test code = 77854-3) Lab Interpretation (test code = Normal 63600-4) [facility]AUTOMATED)2020-09-30 00:54:42 Test Item Value Reference Range Interpretation Comments POCT GLU (test code = 9420001763) 111 mg/dL 70-110 H Lab Interpretation (test code = Abnormal 99352-2) [facility]IC MET[facility]OLIC PANEL (NA, K, CL, CO2, GLUCOSE, BUN, CREATININE, CA)2020-09-29 22:08:22 Test Item Value Reference Range Interpretation Comments NA (test code = 135 mmol/L 135-145 8010325038) K (test code = 3.7 mmol/L 3.5-5.0 1097099291) CL (test code = 108 mmol/L 98-108 4227802801) CO2 TOTAL (test code = 22 mmol/L 23-31 L 8346187320) AGAP (test code = 2-16 1591611828) BUN (test code = 9 mg/dL 7-23 6409394915) GLUCOSE (test code = 104 mg/dL 70-110 1033233234) CREATININE (test code = 0.51 mg/dL 0.50-1.04 4471290927) CALCIUM (test code = 7.9 mg/dL 8.6-10.6 L 5307989269) eGFR (test code = mL/min/1.73m2 9709083188) SNOW (test code = SNOW) Association of [...] tests). Lab Interpretation Abnormal (test code = 18844-3) [facility]MOGLOBIN2021-06-21 21:41:20 Test Item Value Reference Range Interpretation Comments HGB (test code = 718-7) 7.4 g/dL 11.6-15.0 L Lab Interpretation (test code = Abnormal 71282-7) [facility]ITAMIN B12, [id number] 20:39:52 Test Item Value Reference Range Interpretation Comments VIT B12 (test code = 212 pg/mL 240-930 L 4467646549) SNOW (test code = SNOW) Biotin has been reported to cause a positive bias, interpret results relative to patient's use of biotin. Lab Interpretation (test Abnormal code = 39077-8) [facility]DIFF CONSULT [id number] 17:24:18 LEUKOPENIA WITH ABSOLUTE LYMPHOPENIA, REACTIVE MONOCYTES [...] DYSFUNCTION.[facility]anoC-REACTIVE [id number] 17:01:56 Test Item Value Reference Range Interpretation Comments CRP (test code = 1548977950) 4.7 mg/dL <0.8 H Lab Interpretation (test code = Abnormal 49007-7) [facility] D, [id number] 16:43:29 Test Item Value Reference Range Interpretation Comments VIT D 25OH (test code = <13 25-80 L 44006-6) SNOW (test code = SNOW) Deficiency: <20 ng/mLInsufficiency: 20-24 ng/mLOptimal: 25-80 ng/mL Lab Interpretation (test Abnormal code = 39248-9) [facility]PROCALCITONIN2021-06-21 16:15:30 Test Item Value Reference Range Interpretation Comments Procalcitonin (test 0.08 ng/mL <0.07 H code = 4998170952) SNOW (test code = SNOW) INTERPRETATION OF [...] lung abscess/empyema. For further information please refer to:[email or web address] Lab Interpretation Abnormal (test code = 87382-6) [facility]anoOSMOLALITY [id number] 15:35:14 Test Item Value Reference Range Interpretation Comments OSMO U (test code = See_Comment [Automa josemanuel message] 8943456400) The system whic h generated this result transmitted ref erence range: 50-1,100 mOsm/kg. The re ference range was not u sed to interpret this result as normal/abnor mal. Lab Interpretation (test Normal code = 59896-1) [facility]anoTROPONIN [id number] 14:04:56 Test Item Value Reference Range Interpretation Comments TROPONIN I (test 0.002 ng/mL See_Comment [Automated code = 8075232987) message] The system which generated this result transmitted reference range : <=0.034. The reference range was not used to interpret this result as normal/abnormal . SNOW (test code = Equal or Less than NSOW) 0.034 ng/ml---Normal ?Note: Cardiac troponin begins to [...] ? Lab Interpretation Normal (test code = 06926-8) [facility]anoCT ABDOMEN PELVIS W [id number] 13:37:17 1. ?Findings concerning for infectious or inflammatory colitis mostpronounced in the cecum, ascending colon and rectosigmoid with probableunderlying portal colopathy. 2. ?Cirrhotic liver morphology with portal hypertension manifested bysplenomegaly, extensive portosystemic collaterals and small volume ascites. 3. ?Nonobstructive punctate right nephrolithiasis. Preliminary Report Dictated by Resident: Lázaro Bain ?MD. Marguerite, have reviewed this study and agree with [...] reviewed this study and agree with theabove report.[facility] WITH [id number] 11:41:25 Test Item Value Reference Range Interpretation Comments WBC (test code = See_Comment L [Automated 7429-2) message] The system which generated this result transmit josemanuel reference range : 4.30 - 11.10 10*3/?L. The reference range was not used to interpret this result as normal/abnormal . RBC (test code = See_Comment L [Automated 449-8) message] The system which generated this result [...] (test code = 52.4 fL 39.0-49.9 H 03274-8) RDW-CV (test code = 18.2 % 12.0-15.5 H 788-0) PLT (test code = See_Comment LL [Automated 777-3) message] The system which generated this result transmit josemanuel reference range : 166 - 358 10*3/ ?L. The reference range was not u sed to interpret th is result as normal/abnormal . MPV (test code = Not Measure d 19085-1) IPF % (test code = 4.3 % 1.3-7.7 Platelet count 0285035262) measured by fluorescence method. NRBC/100 WBC (test See_Comment [Automat ed code = 3283402599) message] The system which generated this result transmit josemanuel reference range : 0.0 - 10.0 /100 WBCs. The reference range was not used to interpret this result as normal/abnormal . NRBC x10^3 (test code <0.01 See_Comment [Auto mated = 8910024504) message] The system which generated this result transmit josemanuel reference range : 10*3/?L. The reference range was not used to interpret this result as normal/abnormal . GRAN MAT (NEUT) % 74.4 % (test code = 770-8) IMM GRAN % (test code 0.50 % = 6752932631) LYMPH % (test code = 10.3 % 736-9) MONO % (test code = 12.3 % 5905-5) EOS % (test code = 2.0 % 713-8) BASO % (test code = 0.5 % 706-2) GRAN MAT x10^3(ANC) 3.02 10*3/uL 1.88-7.09 (test code = 5036858161) IMM GRAN x10^3 (test <0.03 0.00-0.06 code = 6588145822) LYMPH x10^3 (test 0.42 10*3/uL 1.32-3.29 L code = 731-0) MONO x10^3 (test code 0.50 10*3/uL 0.33-0.92 = 742-7) EOS x10^3 (test code 0.08 10*3/uL 0.03-0.39 = 711-2) BASO x10^3 (test code <0.03 0.01-0.07 = 704-7) PLT ESTIMATE (test Decreased Normal A code = 9317-9) SNOW (test code = SNOW) CBC smear reduced platelet Lab Interpretation Abnormal (test code = 62654-3) [facility]anoN-[facility]MINAL [id number] 11:07:24 Test Item Value Reference Range Interpretation Comments NT-proBNP (test code 79 pg/mL See_Comment [Autom ated = 0381758484) message] The system which generated this result transmitted reference range : <=125. The reference range was not used to interpret this result as normal/abnormal . SNOW (test code = SNOW) Biotin has been reported to cause a negative bias, interpret results relative to patient's use of biotin. Lab Interpretation Normal (test code = 42738-1) [facility]anoIRON [id number] 11:04:41 Test Item Value Reference Range Interpretation Comments IRON (test code = 7778394149) 31 ug/dL 50-160 L TIBC (test code = 4121209775) 295 ug/dL 250-410 % FE SAT (test code = 1941528109) 11 % 20-50 L Lab Interpretation (test code = Abnormal 92445-5) [facility]anoPROTEIN CREAT RATIO URINE [id number] 10:57:19 Test Item Value Reference Range Interpretation Comments T. PROT U (test code = 2888-6) 9 mg/dL CREAT U (test code = 1037430803) 187.5 mg/dL Protein/Creatinine Ratio Urine 0.0-2.0 (test code = 6690878874) [facility]anoSODIUM, URINE [id number] 10:53:21 Test Item Value Reference Range Interpretation Comments NA URINE (test code = 3557724040) 30 mmol/L [facility] PlanoSEDIMENTATION [id number] 10:33:04 Test Item Value Reference Range Interpretation Comments ESR (test code = See_Comment [Automated message] 7411968554) The system CallFire generated this result transmitted ref erence range: 0 - 20 m m/HR. The reference r davi was not used to interpret this result as normal/abnor mal. Lab Interpretation (test Normal code = 28967-7) [facility] PlanoPROTHROMBIN TIME / [id number] 09:43:39 Test Item Value Reference Range Interpretation Comments PROTIME PATIENT (test See_Comment H [Auto mated message] code = 5964-2) The system Collaaj generated this result transmitted ref erence range: 12.0 - 1 4.7 Seconds. The reference range was not used to int erpret this result as normal/abnormal . INR (test code = 6301-6) Nor mal INR <1.1; Warfarin Therap eutic range 2.0 to 3. 0 or 2.5 to 3.5, dep ending upon the indica tions. Lab Interpretation (test Abnormal code = 66336-7) [facility] PlanoLactic Acid Whole [id number] 08:42:38 Test Item Value Reference Range Interpretation Comments LACTIC ACID (test code = 1.47 mmol/L 0.50-2.20 3843158736) Lab Interpretation (test code = Normal 65435-6) [facility]anoFERRITIN [id number] 07:31:09 Test Item Value Reference Range Interpretation Comments FERRITIN (test code = 12.2 ng/mL 11.0-264.0 4947622485) SNOW (test code = SNOW) Biotin has been reported to cause a negative bias, interpret results relative to patient's use of biotin. Lab Interpretation (test Normal code = 31713-8) [facility]anoTHYROID STIMULATING [id number] 07:27:08 Test Item Value Reference Range Interpretation Comments TSH (test code = See_Comment [Automated message] 9616271251) The system [employer]Fire generated this result transmitted ref erence range: 0.45 - 4 .70 mIU/L. The refe rence range was not u sed to interpret this result as normal/abnor mal. Lab Interpretation (test Normal code = 69436-4) [facility]anoGLYCOSYLATED HEMOGLOBIN (A1C)2020-09-29 07:05:40 Test Item Value Reference Range Interpretation Comments HGB A1C (test code = 5.0 % 4.0-5.7 4548-4) SNOW (test code = SNOW) Reference RangesNormal: <5.7%Prediabetes: 5.7 - 6.4%Diabetes: > 6.5% Lab Interpretation (test Normal code = 23529-5) [facility]anoURIC [id number] 07:05:35 Test Item Value Reference Range Interpretation Comments URIC ACID (test code = 9791154283) 4.2 mg/dL 2.9-6.0 Lab Interpretation (test code = Normal 70091-6) [facility]anoCREATINE [id number] 07:05:30 Test Item Value Reference Range Interpretation Comments CK (test code = 7814683492) 192 U/L 33-194 Lab Interpretation (test code = Normal 10749-2) [facility]anoN-TERMINAL [id number] 07:05:30 Test Item Value Reference Range Interpretation Comments NT-proBNP (test code 94 pg/mL See_Comment [Autom ated = 5480247990) message] The system which generated this result transmitted reference range : <=125. The reference range was not used to interpret this result as normal/abnormal . SNOW (test code = SNOW) Biotin has been reported to cause a negative bias, interpret results relative to patient's use of biotin. Lab Interpretation Normal (test code = 90685-4) [facility]anoMAGNESIUM2021-06-21 07:04:24 Test Item Value Reference Range Interpretation Comments MAGNESIUM (test code = 7171637015) 1.8 mg/dL 1.7-2.4 Lab Interpretation (test code = Normal 41007-4) [facility]anoPHOSPHORUS2021-06-21 07:03:39 Test Item Value Reference Range Interpretation Comments PHOSPHORUS (test code = 5491853079) 2.2 mg/dL 2.5-5.0 L Lab Interpretation (test code = Abnormal 86976-6) [facility] PlanoLIPID PANEL (99015)(TOTAL CHOLESTEROL, TRIGLYCERIDES, HDL)2020-09-29 06:56:06 Test Item Value Reference Range Interpretation Comments CHOL (test code = 132 mg/dL 120-200 1715322454) HDL (test code = 41 mg/dL >50 L 4551203237) HDLC RATIO (test code = See_Comment [Au tomated message] 4500378246) The system CallFire generated this result transmit josemanuel reference range : <=4.5. The refe rence range was not u sed to interpret th is result as normal/abnormal . TRIG (test code = 73 mg/dL 30-170 4770154111) LDL CHOL (test code = 76 mg/dL See_Comment [Auto mated message] 46162-4) The system CallFire generated this result transmit josemanuel reference range : <=160. The refe rence range was not u sed to interpret th is result as normal/abnormal . VLDL (test code = 15 mg/dL 5-60 6558072691) Lab Interpretation (test Abnormal code = 43315-1) [facility]anoCOVID-19 (ID NOW RAPID TESTING)2020-09-29 06:24:26 Test Item Value Reference Range Interpretation Comments SARS-CoV-2 Rapid ID NOW Not Detected Not Detected (test code = 87386-4) SNOW (test code = SNOW) ID NOW COVID-19 Assay is an isothermal nucleic acid amplification test intended for the qualitative detection of nucleic acid from SARS-CoV-2 viral RNA in nasopharyngeal (HEARING SCREEN COORDINATOR) specimens. It is used under Emergency Use [...] indicated. Lab Interpretation Normal (test code = 53310-1) [facility]anoURINALYSIS2021-06-21 04:43:31 Test Item Value Reference Range Interpretation Comments APPEARANCE (test code = Clear Clear 5234197231) COLOR (test code = Rosanne Yellow A 5990529697) PH (test code = 4.8-8.0 6427493370) SP GRAVITY (test code = 1.003-1.030 5355498048) GLU U QUAL (test code = Normal Normal 6746778202) BLOOD (test code = Negative Negative 8655590295) KETONES (test code = Negative Negative 4516993235) PROTEIN (test code = 30 mg/dL Negative A 2887-8) UROBILIN (test code = Normal Normal 0944552006) BILIRUBIN (test code = Negative Negative 2645430672) NITRITE (test code = Negative Negative 8241500771) LEUK RANULFO (test code = 25/uL Negative A 1586352719) RBC/HPF (test code = See_Comment [Autom ated message] 7667580497) The system CallFire generated this result transmitted ref erence range: 0 - 3 HP F. The reference range was not used to int erpret this result as normal/abnormal . WBC/HPF (test code = See_Comment [Autom ated message] 0397939061) The system CallFire generated this result transmitted ref erence range: 0 - 5 HP F. The reference range was not used to int erpret this result as normal/abnormal . BACTERIA (test code = Few Negative A 6512917074) MUCOUS (test code = Moderate Negative LPF A 9955801495) SQ EPITH (test code = HPF 4567326800) Lab Interpretation (test Abnormal code = 30797-5) [facility] WITH [id number] 04:39:35 Test Item Value Reference Range Interpretation Comments WBC (test code = See_Comment [Automated 6590-2) message] The system which generated this result transmit josemanuel reference range : 4.30 - 11.10 10*3/?L. The reference range was not used to interpret this result as normal/abnormal . RBC (test code = See_Comment L [Automated 079-8) message] The system which generated this result [...] (test code = 51.3 fL 39.0-49.9 H 81210-1) RDW-CV (test code = 18.1 % 12.0-15.5 H 788-0) PLT (test code = See_Comment L [Automated 777-3) message] The system which generated this result transmit josemanuel reference range : 166 - 358 10*3/ ?L. The reference range was not u sed to interpret th is result as normal/abnormal . MPV (test code = 11.1 fL 9.5-12.9 90810-2) IPF % (test code = 3.7 % 1.3-7.7 Platelet count 8829835060) measured by fluorescence method. NRBC/100 WBC (test See_Comment [Automat ed code = 3910370766) message] The system which generated this result transmit josemanuel reference range : 0.0 - 10.0 /100 WBCs. The reference range was not used to interpret this result as normal/abnormal . NRBC x10^3 (test code <0.01 See_Comment [Auto mated = 2647244398) message] The system which generated this result transmit josemanuel reference range : 10*3/?L. The reference range was not used to interpret this result as normal/abnormal . GRAN MAT (NEUT) % 76.4 % (test code = 770-8) IMM GRAN % (test code 0.80 % = 9611019274) LYMPH % (test code = 9.4 % 736-9) MONO % (test code = 11.3 % 5905-5) EOS % (test code = 1.5 % 713-8) BASO % (test code = 0.6 % 706-2) GRAN MAT x10^3(ANC) 4.07 10*3/uL 1.88-7.09 (test code = 5177787170) IMM GRAN x10^3 (test 0.04 10*3/uL 0.00-0.06 code = 7287829297) LYMPH x10^3 (test 0.50 10*3/uL 1.32-3.29 L code = 731-0) MONO x10^3 (test code 0.60 10*3/uL 0.33-0.92 = 742-7) EOS x10^3 (test code 0.08 10*3/uL 0.03-0.39 = 711-2) BASO x10^3 (test code 0.03 10*3/uL 0.01-0.07 = 704-7) PLT ESTIMATE (test Decreased Normal A code = 9317-9) SNOW (test code = SNOW) Juan slide adgrees to decreased Platelet Lab Interpretation Abnormal (test code = 31013-5) [facility]. METABOLIC PANEL (36387)2020-09-29 04:25:42 Test Item Value Reference Range Interpretation Comments NA (test code = 134 mmol/L 135-145 L 8630899480) K (test code = 3.2 mmol/L 3.5-5.0 L 4063830012) CL (test code = 104 mmol/L 98-108 0255483618) CO2 TOTAL (test code = 24 mmol/L 23-31 1593523861) AGAP (test code = 2-16 6035239834) BUN (test code = 8 mg/dL 7-23 7829972082) GLUCOSE (test code = 105 mg/dL 70-110 4539062158) CREATININE (test code = 0.51 mg/dL 0.50-1.04 8588909413) TOTAL BILI (test code = 2.5 mg/dL 0.1-1.1 H 5037827351) CALCIUM (test code = 8.2 mg/dL 8.6-10.6 L 8015696841) T PROTEIN (test code = 6.3 g/dL 6.3-8.2 5637858804) ALBUMIN (test code = 3.1 g/dL 3.5-5.0 L 7214189795) ALK PHOS (test code = 136 U/L 34-122 H 9471137602) ALTv (test code = 24 U/L 5-35 1742-6) AST(SGOT) (test code = 30 U/L 13-40 0195723522) eGFR (test code = mL/min/1.73m2 0925523083) SNOW (test code = SNOW) Association of [...] tests). Lab Interpretation Abnormal (test code = 00563-7) [facility]anoLIPASE2021-06-21 04:25:42 Test Item Value Reference Range Interpretation Comments LIPASE (test code = 4142150207) 102 U/L 0-220 Lab Interpretation (test code = Normal 10707-7) [facility]anoSARS-CoV-2 (COVID-19) RNA [Presence] in Respiratory specimen by HELENA with probe [id number] 00:49:19 Test Item Value Reference Range Interpretation Comments SARS-CoV-2 (COVID-19) RNA Not detected Not-Detected [Presence] in Respiratory specimen by HELENA with probe detection (test code = 29755-9) 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 employed in a healthcare setting (test code = 13556-5) Whether the patient has symptoms related to condition of interest (test code = 87789-2) Patient was hospitalized because of this condition (test code = 28072-5) Whether the patient was admitted to intensive care unit (ICU) for condition of interest (test code = 35765-0) Whether patient resides in a congregate care setting (test code = 00508-7) SARS-CoV-2 (COVID-19) RNA [Presence] in Respiratory specimen by HELENA with probe [id number] 02:47:43 Test Item Value Reference Range Interpretation Comments SARS-CoV-2 (COVID-19) RNA Not detected Not-Detected [Presence] in Respiratory specimen by HELENA with probe detection (test code = 66698-2) SARS-CoV-2 (COVID-19) RNA [Presence] in Respiratory specimen by HELENA with probe izegwkfkh2777-17-64 16:32:37 Test Item Value Reference Range Interpretation Comments SARS-CoV-2 (COVID-19) RNA Not detected Not-Detected [Presence] in Respiratory specimen by HELENA with probe detection (test code = 99905-6) SARS-CoV-2 (COVID-19) RNA [Presence] in Respiratory specimen by HELENA with probe [id number] 05:29:57 Test Item Value Reference Range Interpretation Comments SARS-CoV-2 (COVID-19) RNA Not detected Not-Detected [Presence] in Respiratory specimen by HELENA with probe detection (test code = 90633-6) CT ABDOMEN PELVIS W [id number] 19:27:49 1. ?No evidence of small bowel [...] reviewed this study and agree with the abovereport.[facility] WITH [id number] 11:56:00 Test Item Value Reference Range Interpretation [...] (test code = 58.0 fL 39-49.9 H 48714-2) RDW-CV (test code = 16.6 % 12-15.5 H 788-0) PLT (test code = See_Comment LL [Automated 777-3) message] The sy stem which generated this result transmitted reference range : 166 - 358 10*3/ ?L. The reference r davi was not used to interpret this result as normal/abnormal . MPV (test code = 11.0 fL 9.5-12.9 69686-7) IPF % (test code = 5.5 % 1.3-7.7 Platelet count 9543260295) measured by fluorescence method. NRBC/100 WBC (test See_Comment [Automat ed code = 7398340474) message] The system which generated this result transmitted reference range : 0.0 - 10.0 /100 WBCs. The refer ence range was not u sed to interpret th is result as normal/abnormal . NRBC x10^3 (test code <0.01 See_Comment [Auto mated = 5422697759) message] The s ystem which generated this result transmitted reference range : 10*3/?L. The reference range was not used to interpret this result as normal/abnormal . GRAN MAT (NEUT) % 57.6 % (test code = 770-8) IMM GRAN % (test code 0.00 % = 4689132834) LYMPH % (test code = 27.1 % 736-9) MONO % (test code = 11.8 % 5905-5) EOS % (test code = 3.1 % 713-8) BASO % (test code = 0.4 % 706-2) GRAN MAT x10^3(ANC) 1.47 10*3/uL 1.88-7.09 L (test code = 1668959067) IMM GRAN x10^3 (test <0.03 0-0.06 code = 8099642412) LYMPH x10^3 (test code 0.69 10*3/uL 1.32-3.29 L = 731-0) MONO x10^3 (test code 0.30 10*3/uL 0.33-0.92 L = 742-7) EOS x10^3 (test code = 0.08 10*3/uL 0.03-0.39 711-2) BASO x10^3 (test code <0.03 0.01-0.07 = 704-7) Lab Interpretation Abnormal (test code = 54403-8) [facility]anoCOMP. METABOLIC PANEL (87833)2019-08-11 10:42:00 Test Item Value Reference Range Interpretation Comments NA (test code = 138 mmol/L 135-145 5591978905) K (test code = 3.8 mmol/L 3.5-5 4300981943) CL (test code = 108 mmol/L 98-108 3108906337) CO2 TOTAL (test code = 24 mmol/L 23-31 7685897877) AGAP (test code = 2-16 1135382903) BUN (test code = 10 mg/dL 7-23 2693278750) GLUCOSE (test code = 108 mg/dL 70-110 8305403743) CREATININE (test code = 0.43 mg/dL 0.5-1.04 L 7617004927) TOTAL BILI (test code = 2.5 mg/dL 0.1-1.1 H 8806886759) CALCIUM (test code = 8.4 mg/dL 8.6-10.6 L 6782041209) T PROTEIN (test code = 6.1 g/dL 6.3-8.2 L 7618023579) ALBUMIN (test code = 3.1 g/dL 3.5-5 L 8985550485) ALK PHOS (test code = 102 U/L 34-122 6077903699) ALTv (test code = 52 U/L 5-35 H 1742-6) AST(SGOT) (test code = 63 U/L 13-40 H 1709420162) eGFR Calculation mL/min/1.73m2 (Non-) (test code = 1132225902) eGFR Calculation mL/min/1.73m2 () (test code = 4554038358) SNOW (test code = SNOW) Association of [...] tests). Lab Interpretation Abnormal (test code = 89070-0) [facility]anoXR SMALL BOWEL [id number] 02:08:11 1. ?No bowel obstruction. No fluoroscopic images or fluoroscopic time. RL 6200 HISTORY: ?Abdominal pain COMPARISON: ?None FINDINGS: There is a nonobstructive bowel gas pattern. Contrast is seen throughoutthe entire small bowel and colon. Nodilated loops of bowel demonstrated. [facility], Radiant Results Inft User - 08/10/2019 9:09 PM CDTHISTORY: Abdominal painCOMPARISON: NoneFINDINGS:There is a nonobstructive bowel gas pattern. Contrast is seen throughoutthe entire small bowel and colon. No dilated loops of bowel demonstrated.IMPRESSION1.No bowel obstruction.No fluoroscopic images or fluoroscopic time.RL [address] UnSt[facility] CenterSEDIMENTATION [id number] 16:19:00 Test Item Value Reference Range Interpretation Comments ESR (test code = See_Comment [Automated message] [id number]) The system [employer] generated this result transmitted ref erence range: 0 - 20 m m/HR. The reference r davi was not used to interpret this result as normal/abnor mal. Lab Interpretation (test Normal code = 17184-2) [facility] - To confirm nasogastric tube [...] system. No acute bony abnormalities are noted. [facility], Radiant Results Inft User - 08/10/2019 10:25 [...] the visualized upperabdomen.Preliminary Report Dictated by Resident: Yazmin Perla MD., have reviewed this study and agree with the abovereport.[facility] WITH [id number] 13:48:00 Test Item Value Reference Range Interpretation [...] (test code = 58.4 fL 39-49.9 H 37216-9) RDW-CV (test code = 16.7 % 12-15.5 H 788-0) PLT (test code = See_Comment LL [Automated 777-3) message] The system which generated this result transmit josemanuel reference range : 166 - 358 10*3/ ?L. The reference range was not u sed to interpret th is result as normal/abnormal . MPV (test code = 10.5 fL 9.5-12.9 69320-5) IPF % (test code = 3.0 % 1.3-7.7 Platelet count [id number]) measured by fluorescence method. NRBC/100 WBC (test See_Comment [Automat ed code = 9870744497) message] The system which generated this result transmit josemanuel reference range : 0.0 - 10.0 /100 WBCs. The reference range was not used to interpret this result as normal/abnormal . NRBC x10^3 (test code <0.01 See_Comment [Auto mated = 4955605360) message] The system which generated this result transmit josemanuel reference range : 10*3/?L. The reference range was not used to interpret this result as normal/abnormal . GRAN MAT (NEUT) % 57.1 % (test code = 770-8) IMM GRAN % (test code 0.40 % = 6850213006) LYMPH % (test code = 28.1 % 736-9) MONO % (test code = 10.4 % 5905-5) EOS % (test code = 3.6 % 713-8) BASO % (test code = 0.4 % 706-2) GRAN MAT x10^3(ANC) 1.42 10*3/uL 1.88-7.09 L (test code = 9468028547) IMM GRAN x10^3 (test <0.03 0-0.06 code = 3745044435) LYMPH x10^3 (test 0.70 10*3/uL 1.32-3.29 L code = 731-0) MONO x10^3 (test code 0.26 10*3/uL 0.33-0.92 L = 742-7) EOS x10^3 (test code 0.09 10*3/uL 0.03-0.39 = 711-2) BASO x10^3 (test code <0.03 0.01-0.07 = 704-7) PLT ESTIMATE (test Critically Normal AA code = 9317-9) Decreased Lab Interpretation Abnormal (test code = 56625-5) [facility]anoGLYCOSYLATED HEMOGLOBIN (A1C)2019-08-10 13:13:00 Test Item Value Reference [...] Indicated Lab Interpretation Normal (test code = 50150-8) [facility]anoTHYROID STIMULATING [id number] 13:05:00 Test Item Value Reference Range Interpretation Comments TSH (test code = See_Comment [Automated message] 4322500358) The system [employer]Fire generated this result transmitted ref erence range: 0.45 - 4 .70 mIU/L. The refe rence range was not u sed to interpret this result as normal/abnor mal. Lab Interpretation (test Normal code = 03772-0) [facility]anoPREGNANCY TEST, [id number] 13:04:00 Test Item Value Reference Range Interpretation Comments PREG SERUM (test code Negative = 4353472724) SNOW (test code = SNOW) Less than 10 IU/L. ?If low titer or ectopic is suspected, resubmit specimen in 48-72 hours. [facility]anoLIPID PANEL (07714)(TOTAL CHOLESTEROL, TRIGLYCERIDES, HDL)2019-08-10 12:36:00 Test Item Value Reference Range Interpretation Comments CHOL (test code = 158 mg/dL 120-200 8229433186) HDL (test code = 47 mg/dL >50 L 0654488932) HDLC RATIO (test code = See_Comment [Au tomated message] 8200437603) The system [employer]Fire generated this result transmit josemanuel reference range : <=4.5. The refe rence range was not u sed to interpret th is result as normal/abnormal . TRIG (test code = 51 mg/dL 30-170 5786504891) LDL CHOL (test code = 101 mg/dL See_Comment [Auto mated message] 53763-3) The system [employer] generated this result transmit josemanuel reference range : <=160. The refe rence range was not u sed to interpret th is result as normal/abnormal . VLDL (test code = 10 mg/dL 5-60 4536913205) Lab Interpretation (test Abnormal code = 81465-7) [facility]anoCOMP. METABOLIC PANEL (87489)2019-08-10 12:35:00 Test Item Value Reference Range Interpretation Comments NA (test code = 139 mmol/L 135-145 2027501053) K (test code = 3.9 mmol/L 3.5-5 4273884100) CL (test code = 109 mmol/L 98-108 H 6193816069) CO2 TOTAL (test code = 25 mmol/L 23-31 7485691617) AGAP (test code = 2-16 3505920864) BUN (test code = 15 mg/dL 7-23 9802357690) GLUCOSE (test code = 218 mg/dL 70-110 H 5278940860) CREATININE (test code = 0.40 mg/dL 0.5-1.04 L 2626932816) TOTAL BILI (test code = 2.0 mg/dL 0.1-1.1 H 6038269602) CALCIUM (test code = 8.5 mg/dL 8.6-10.6 L 9515244112) T PROTEIN (test code = 6.2 g/dL 6.3-8.2 L 0629156119) ALBUMIN (test code = 3.1 g/dL 3.5-5 L 6211202654) ALK PHOS (test code = 99 U/L 34-122 2282599722) ALTv (test code = 42 U/L 5-35 H 1742-6) AST(SGOT) (test code = 49 U/L 13-40 H 9492309984) eGFR Calculation mL/min/1.73m2 (Non-) (test code = 7737096714) eGFR Calculation mL/min/1.73m2 () (test code = 8662884855) SNOW (test code = SNOW) Association of [...] tests). Lab Interpretation Abnormal (test code = 62086-7) [facility]MAGN[facility]IUM2020-05-01 12:35:00 Test Item Value Reference Range Interpretation Comments MAGNESIUM (test code = 3435579755) 1.6 mg/dL 1.7-2.4 L Lab Interpretation (test code = Abnormal 61677-0) [facility]anoPHOSPHORUS2020-05-01 12:35:00 Test Item Value Reference Range Interpretation Comments PHOSPHORUS (test code = 6896359601) 3.6 mg/dL 2.5-5 Lab Interpretation (test code = Normal 51587-5) [facility]anoCREATINE [id number] 12:35:00 Test Item Value Reference Range Interpretation Comments CK (test code = 6662108071) 123 U/L 33-194 Lab Interpretation (test code = Normal 65382-9) [facility]anoLIPASE2020-05-01 12:35:00 Test Item Value Reference Range Interpretation Comments LIPASE (test code = 1457582446) 141 U/L 0-220 Lab Interpretation (test code = Normal 48744-8) [facility]anoAMYLASE2020-05-01 12:34:00 Test Item Value Reference Range Interpretation Comments LIN (test code = 8983552745) 73 U/L 35-110 Lab Interpretation (test code = Normal 34186-2) [facility] PlanoPROTHROMBIN TIME / [id number] 12:07:00 Test Item Value Reference Range Interpretation Comments PROTIME PATIENT (test See_Comment H [Auto mated message] code = 5964-2) The system Company generated this result transmitted ref erence range: 12.0 - 1 4.7 Seconds. The reference range was not used to int erpret this result as normal/abnormal . INR (test code = 6301-6) Nor mal INR <1.1; Warfarin Therap eutic range 2.0 to 3. 0 or 2.5 to 3.5, dep ending upon the indica tions. Lab Interpretation (test Abnormal code = 58427-2) [facility]anoCORONAVIRUS COVID-19 [id number] 10:18:00 Test Item Value Reference Range Interpretation Comments SARS-CoV-2 (test code = Not Detected Not Detected 25388-3) SNOW (test code = SNOW) ID NOW COVID-19 Assay is an isothermal nucleic acid amplification test intended for the qualitative detection of nucleic acid from SARS-CoV-2 viral RNA in nasopharyngeal (HEARING SCREEN COORDINATOR) specimens. It is used under Emergency Use [...] indicated. Lab Interpretation Normal (test code = 00852-0) [facility]anoRAD, CHEST, 1 VIEW, NON [id number] 07:50:00Reason for exam:->SOBShould this be performed at the bedside?->Yes FINAL REPORT CLINICAL HISTORY: SOB TECHNIQUE: 1 view of the chest. COMPARISON: None IMPRESSION: There is pulmonary vascular congestion with prominent lung markings bilaterally. Subpulmonic pleural effusions cannot be excluded. The cardiomediastinal silhouette is magnified by technique. Signed: Frank[facility] Hospitalort Verified Date/Time: 10/03/2018 07:50:47 Reading Location: [facility] Radiology Reading Room [id number] 07:37:00 Test Item Value Reference Range Interpretation Comments MAGNESIUM (BEAKER) (test code = 1.6 mg/dL 1.6-2.6 627) BASIC METABOLIC [id number] 07:37:00 Test Item Value Reference Range Interpretation [...] DIALYSIS PATIEN TS. Specimen slightly ictericHEPATIC FUNCTION [id number] 07:37:00 Test Item Value Reference Range Interpretation [...] 35 U/L 6-55 347) Specimen slightly ictericPROTHROMBIN TIME/[id number] 06:25:00 Test Item Value Reference Range Interpretation [...] mechanical heart valves.CBC W/PLT COUNT & AUTO [id number] 06:16:00 Test Item Value Reference Range Interpretation [...] = 3438) Received comment: User comments: Slide comments:[id number] 05:58:00 Test Item Value Reference Range Interpretation Comments MAGNESIUM (BEAKER) (test code = 1.6 mg/dL 1.6-2.6 627) BASIC METABOLIC [id number] 05:58:00 Test Item Value Reference Range Interpretation [...] DIALYSIS PATIEN TS. Specimen slightly ictericHEPATIC FUNCTION [id number] 05:58:00 Test Item Value Reference Range Interpretation [...] 39 U/L 6-55 347) Specimen slightly ictericPROTHROMBIN [id number] 05:26:00 Test Item Value Reference Range Interpretation [...] mechanical heart valves.CBC W/PLT COUNT & AUTO [id number] 05:20:00 Test Item Value Reference Range Interpretation [...] WBC 0-0 (test code = 413) VITAMIN [id number] 06:57:00 Test Item Value Reference Range Interpretation Comments VITAMIN B12 (BEAKER) (test code = 178 pg/mL 213-816 L 774) [id number] 06:57:00 Test Item Value Reference Range Interpretation Comments FERRITIN (BEAKER) (test code = 361) 21 ng/mL 5-275 FOLATE, [id number] 06:57:00 Test Item Value Reference Range Interpretation [...] 28 % 20-55 (test code = 2590) [id number] 05:59:00 Test Item Value Reference Range Interpretation Comments MAGNESIUM (BEAKER) (test code = 1.7 mg/dL 1.6-2.6 627) BASIC METABOLIC [id number] 05:59:00 Test Item Value Reference Range Interpretation [...] FOR DIALYSIS PATIEN TS. Specimen slightly ictericLIPID [id number] 05:59:00 Test Item Value Reference Range Interpretation [...] Very High >=190 Specimen slightly ictericHEPATIC FUNCTION [id number] 05:59:00 Test Item Value Reference Range Interpretation [...] = 41 U/L 6-55 347) Specimen slightly [id number] 05:59:00 Test Item Value Reference Range Interpretation Comments LIPASE (BEAKER) (test code = 749) 35 U/L 8-78 Specimen slightly ictericPROTHROMBIN [id number] 05:58:00 Test Item Value Reference Range Interpretation [...] mechanical heart valves.CBC W/PLT COUNT & AUTO [id number] 05:37:00 Test Item Value Reference Range Interpretation [...] PERCENT (BEAKER) (test code = 2801) POCT-HEMOGLOBIN [id number] 06:12:00 Test Item Value Reference Range Interpretation Comments POC-HEMOGLOBIN METER 8.6 g/dL 12.0-15.0 L TESTED AT [facility] ([facility]) (test code = [place] [address] 1539)"
[2021-08-31] MEDS ORDERED: HYDROCODONE/APAP 7.5/325 MG TAB ONE (00:11)
--- NOTE | 2021-08-31 01:18 | ER ---
Nurse's Notes [facility] Name: Zenaida Goss Age: 61 yrs Sex: Female : 1960 Arrival Date: 08/30/2021 Time: 22:41 Bed 11 Private MD: Diagnosis: Pain in right wrist;Pain in right knee;Fall on same level, unspecified Presentation: 08/30 23:13 Chief complaint: Patient states: "I had surgery on my right knee at the beginning of lp1 this month and I fell yesterday going up some steps"; Reports impact on right knee and right wrist, pain to sites. Care prior to arrival: None. 23:13 Acuity: TANK 4 lp1 23:13 Method Of Arrival: Ambulatory lp1 23:16 Coronavirus screen: At this time, the client does not indicate any symptoms associated lp1 with coronavirus-19. Ebola Screen: No symptoms or risks identified at this time. Risk Assessment: Do you want to hurt yourself or someone else? Patient reports no desire to harm self or others. Onset of symptoms was August 29, 2021. 23:16 Initial Sepsis Screen: Does the patient meet any 2 criteria? No. Patient's initial lp1 sepsis screen is negative. Does the patient have a suspected source of infection? No. Patient's initial sepsis screen is negative. Historical: - Allergies: 23:15 Dilaudid; lp1 23:15 Morphine (Anaphylaxis); lp1 - Home Meds: 23:15 Creon Oral [Active]; Lactulose Oral once daily [Active]; Furosemide Oral [Active]; lp1 - PMHx: 23:15 Anemia; breast cancer; Cirrhosis; fatty liver; Pancreatitis; varices; lp1 - PSHx: 23:15 Appendectomy; Cholecystectomy; Lumpectomy of breast; Total abdominal hysterectomy; lp1 - Immunization history:: Adult Immunizations up to date, Client reports receiving the 2nd dose of the Covid vaccine. - Social history:: Smoking status: Patient denies any tobacco usage or history of. Screenin:15 Abuse screen: Denies threats or abuse. Denies injuries from another. Nutritional lp1 screening: No deficits noted. Tuberculosis screening: No symptoms or risk factors identified. Fall Risk None identified. Assessment: 23:20 General: Appears in no apparent distress. Behavior is calm, cooperative, appropriate lp1 for age. Pain: Complains of pain in dorsal aspect of right wrist and palmar aspect of right wrist, right knee Pain currently is 7 out of 10 on a pain scale. Neuro: Level of Consciousness is awake, alert, obeys commands. Cardiovascular: Patient's skin is warm and dry. Respiratory: Respiratory effort is even, unlabored. GI: No signs and/or symptoms were reported involving the gastrointestinal system. : No signs and/or symptoms were reported regarding the genitourinary system. EENT: No signs and/or symptoms were reported regarding the EENT system. Derm: Skin is pink, warm \\T\\ dry. Musculoskeletal: Circulation, motion, and sensation intact. Vital Signs: 23:16 BP 135 / 55; Pulse 76; Resp 18; Temp 98.2(TE); Pulse Ox 100% on R/A; Weight 120.2 kg lp1 (R); Height 5 ft. 4 in. (162.56 cm); Pain 9/10; 23:16 Body Mass Index 45.49 (120.20 kg, 162.56 cm) lp1 ED Course: 22:41 Patient arrived in ED. ag3 23:15 Triage completed. lp1 23:15 Arm band placed on. lp1 23:19 Patient has correct armband on for positive identification. lp1 23:30 Homero Jackson PA is PHCP. cp 23:30 Homero Terrell MD is Attending Physician. cp 05 00:03 Kacy Barnes, RN is Primary Nurse. lp1 00:59 XRAY Wrist RIGHT 3 view In Process Unspecified. EDMS 00:59 XRAY Knee RIGHT 3 view In Process Unspecified. EDMS 01:16 Gm Singh MD is Referral Physician. cp 01:16 Velcro wrist splint applied to right wrist. lp1 01:16 No provider procedures requiring assistance completed. Patient did not have IV access lp1 during this emergency room visit. Administered Medications: 00:07 Drug: Hydrocodone-Acetaminophen (7.5 mg-325 mg) 1 tabs {Note: RASS 0.} Route: PO; lp1 01:30 Follow up: Response: No adverse reaction; Pain is decreased lp1 01:31 Drug: Zofran (Ondansetron) 4 mg Route: PO; lp1 01:35 Follow up: Response: Medication administered at discharge. lp1 Medication: 08/30 23:19 VIS not applicable for this client. lp1 Outcome: 08/31 01:17 Discharge ordered by . cp 01:30 Discharged to home ambulatory. lp1 01:30 Condition: good 01:30 Discharge instructions given to patient, Instructed on discharge instructions, follow up and referral plans. medication usage, Demonstrated understanding of instructions, follow-up care, medications. 01:31 Patient left the ED. lp1 Signatures: Dispatcher [employer] EDMS Kacy Barnes RN RN lp1 Homero Jackson PA PA Sandi Wan ag3 Corrections: (The following items were deleted from the chart) 08/30 23:19 23:16 Temp 98.2F Temporal; 120.2 kg Reported; Height 5 ft. 4 in.; BMI: 45.4; Pain 9/10; lp1 lp1
--- NOTE | 2021-08-31 01:18 | EDPHYS ---
Physician Documentation [facility] Name: Zenaida Goss Age: 61 yrs Sex: Female : 1960 Arrival Date: 08/30/2021 Time: 22:41 Bed 11 Private MD: ED Physician Homero Terrell HPI: 08/30 23:35 This 61 yrs old Female presents to ER via Ambulatory with complaints of Fall cp Injury, Knee Pain, Wrist Pain. 23:35 Details of fall: The patient fell from an upright position, while walking. cp 23:35 Onset: The symptoms/episode began/occurred yesterday. cp 23:35 Associated injuries: The patient sustained right wrist, painful injury, right knee, cp painful injury. 23:35 Severity of symptoms: in the emergency department the symptoms are unchanged, despite cp home interventions. Patient reports misstep while going up stairs causing her to lose her balance and fall onto knee and injure right wrist. Historical: - Allergies: 23:15 Dilaudid; lp1 23:15 Morphine (Anaphylaxis); lp1 - Home Meds: 23:15 Creon Oral [Active]; Lactulose Oral once daily [Active]; Furosemide Oral [Active]; lp1 - PMHx: 23:15 Anemia; breast cancer; Cirrhosis; fatty liver; Pancreatitis; varices; lp1 - PSHx: 23:15 Appendectomy; Cholecystectomy; Lumpectomy of breast; Total abdominal hysterectomy; lp1 - Immunization history:: Adult Immunizations up to date, Client reports receiving the 2nd dose of the Covid vaccine. - Social history:: Smoking status: Patient denies any tobacco usage or history of. ROS: 23:40 Constitutional: Negative for body aches, chills, fever, poor PO intake. cp 23:40 Cardiovascular: Negative for chest pain, palpitations. cp 23:40 MS/extremity: Positive for pain, of the right wrist and right knee. 23:40 Eyes: Negative for injury, pain, redness, and discharge. cp 23:40 Neck: Negative for pain with movement, pain at rest, stiffness. 23:40 Respiratory: Negative for shortness of breath, wheezing. 23:40 Abdomen/GI: Negative for abdominal pain. 23:40 Back: Negative for pain at rest, pain with movement. 23:40 Neuro: Negative for dizziness, headache, loss of consciousness, syncope, weakness. cp 23:40 All other systems are negative. Exam: 23:45 Constitutional: The patient appears in no acute distress, alert, awake, cp non-diaphoretic, well developed, well nourished. 23:45 Head/Face: Normocephalic, atraumatic. Vital Signs: 23:16 BP 135 / 55; Pulse 76; Resp 18; Temp 98.2(TE); Pulse Ox 100% on R/A; Weight 120.2 kg lp1 (R); Height 5 ft. 4 in. (162.56 cm); Pain 9/10; 23:16 Body Mass Index 45.49 (120.20 kg, 162.56 cm) lp1 MDM: 23:31 Patient medically screened. [facility] 08/31 01:17 Data reviewed: vital signs, nurses notes, radiologic studies, plain films. 01:17 Differential diagnosis: closed head injury, fracture, multiple trauma. 08/30 23:37 Order name: XRAY Wrist RIGHT 3 view 08/30 23:37 Order name: XRAY Knee RIGHT 3 view 08/31 01:07 Order name: Wrist Splint; Complete Time: 01:16 cp Administered Medications: 00:07 Drug: Hydrocodone-Acetaminophen (7.5 mg-325 mg) 1 tabs {Note: RASS 0.} Route: PO; lp1 01:30 Follow up: Response: No adverse reaction; Pain is decreased lp1 01:31 Drug: Zofran (Ondansetron) 4 mg Route: PO; lp1 01:35 Follow up: Response: Medication administered at discharge. lp1 Disposition Summary: 08/31/21 01:17 Discharge Ordered Location: Home cp Problem: new cp Symptoms: have improved cp Condition: Stable cp Diagnosis - Pain in right wrist cp - Pain in right knee cp - Fall on same level, unspecified cp Followup: cp - With: Gm Singh MD - When: 2 - 3 days - Reason: Worsening of condition Discharge Instructions: - Discharge Summary Sheet cp - Elastic Bandage and RICE Therapy cp - Wrist Pain, Adult cp - Acute Knee Pain, Adult cp Forms: - Medication Reconciliation Form cp - Thank You Letter cp - Antibiotic Education cp - Prescription Opioid Use cp Prescriptions: - Tramadol 50 mg Oral Tablet - take 1 tablet by ORAL route every 8 hours as needed; 12 tablet; Refills: 0, cp Product Selection Permitted Signatures: Dispatcher [employer] Homero Mauro MD MD cha Pena, Laura RN RN lp1 Homero Jackson PA PA cp
[2021-08-31] MEDS ORDERED: ONDANSETRON 4 MG (ODT) TAB ONE (01:30)
[2021-08-31 01:37] VITALS: BP 135/55; TEMP 98.2; O2SAT 100
--- NOTE | 2021-08-31 13:38 | RAD REPORT ---
EXAM DESCRIPTION: Knee Right 3 View CLINICAL HISTORY: PAIN COMPARISON: None. FINDINGS: 3 views of the right knee. No acute fracture or dislocation. Osteopenia. No definite joint effusion. IMPRESSION: 1. No acute fracture or dislocation. Electronically signed by: Jeyson Sánchez 08/31/2021 1:22 AM CDT Due to temporary technical issues with the PACS/Fluency reporting system, reports are being signed by the in house radiologist without review as a courtesy to ensure prompt reporting. The interpreting r adiologist is fully responsible for the content of the report.
--- NOTE | 2021-08-31 13:40 | RAD REPORT ---
EXAM DESCRIPTION: Wrist Right 3 View CLINICAL HISTORY: PAIN Wrist Right 3 View COMPARISON: None. FINDINGS: 3 views of the right wrist. No acute fracture or dislocation. Normal osseous mineralizatio n. No radiopaque foreign bodies. IMPRESSION: 1. No acute fracture or dislocation. Electronically signed by: Jyeson Sánchez 08/31/2021 1:21 AM CDT Due to temporary technical issues with the PACS/Fluency reporting system, reports are being signed by the in house radiologist without review as a courtesy to ensure prompt reporting. The interpreting r adiologist is fully responsible for the content of the report.
== END 2021-08-31 01:31 | disposition home or self-care (01) ==
LOC: ER 22:41
DX: M25.561 Pain in right knee (principal); M25.531 Pain in right wrist; W10.9XXA Fall (on) (from) unspecified stairs and steps, initial encounter; Y93.89 Activity, other specified; Y92.9 Unspecified place or not applicable; K76.0 Fatty (change of) liver, not elsewhere classified; D64.9 Anemia, unspecified; Z85.3 Personal history of malignant neoplasm of breast; K74.60 Unspecified cirrhosis of liver; K85.90 Acute pancreatitis without necrosis or infection, unspecified
CPT/HCPCS: 99283

== ENCOUNTER 2021-09-14 03:02 | Emergency (ER) | payer OTHER ==
--- OUTSIDE RECORDS SUMMARY | 2021-09-14 03:11 | XMS REPORT | Continuity of Care Document ---
:1960 Author Organization [facility] t Address [address] [place] [address] Dr. [address]. [address] [place] [address] Care Team Providers Name Role Phone Sami HERNANDEZ Primary Care Physician Unavailable Ruth Attending Clinician Unavailable Harley Attending Clinician Unavailable [facility] Attending Clinician Unavailable José Manuel GREEN Attending Clinician Unavailable Beatriz INSIDE SALES ADVISOR, F Attending Clinician Nancy REYES Attending Clinician [...] Clinician Unavailable Kyrie GERMAN Attending Clinician Unavailable SHEIRDAN THOMAS MD Attending Clinician Unavailable MD CECE [...] Expiration Date Deshawn blancas [facility] [id number] 2019 CHOICE 00:00:00 Problems Condition Condition Condition [...] of - [facility] right knee right knee [facility] Primary Primary Diagnosis Active 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 of itis of - [facility] left knee left knee [facility] Allergies, Adverse Reactions, Alerts Allergy Allergy [...] Not Commo n Reaction Available Spir t [facility] Social History Social Habit Start Date Stop Date Quantity Comments Source Exposure to Not sure [facility] SARS-CoV-2 [facility] (event) Branch Alcohol intake 2021-04-02 2021-04-02 Ex-drinker [facility] 00:00:00 00:00:00 (finding) [facility] Tobacco use and 2016-08-07 2016-08-07 Never used Universit y of exposure 00:00:00 00:00:00 [facility] Sex Ass[birth year] At [birth year] Universit y of 00:00:00 00:00:00 [facility] Smoking Status Start Date Stop Date Source Never smoker [facility] Medications Ordered Filled Start Stop Current [...] 04/02/21 at 1445, VERN ondansetron 2020-04 Yes [id number] 4mg Take 1 Univers 4 mg 2-23 tablet by ity of disintegrat 00:00: mouth [place] ing tablet 00 every 8 Medica l (eight) Branch hours as needed for Nausea and Vomiting (N/V). ondansetron 2020-04 Yes [id number] 4mg Take 1 Univers 4 mg 2-23 tablet by ity of disintegrat 00:00: mouth [place] ing tablet 00 every 8 Medica l (eight) Branch hours as needed for Nausea and Vomiting (N/V). cholecalcif 2020- No [id number] 1999U Take 2 Univers nuno, 6-26 07-27 tablets by ity of vitamin D3, 00:00: 04:59 [place] 25 mcg 00 :00 daily for Medical (1,000 30 days. Branch unit) tablet cyanocobala 2020- No [id number] 1000ug inject 1 Univers min 1,000 6-26 07-27 mL under ity o f mcg/mL 00:00: 04:59 the skin [place] injection 00 :00 every 24 Medica l (twenty-fo Branch ur) hours for 30 days. KCL 20 mEq 2020- No [id number] 20meq Take 1 Univers tablet 6-26 07-27 tablet by ity of 00:00: 04:59 mouth [place] 00 :00 daily for Medical 30 days. Branch cholecalcif 2020- No [id number] 1999U Take 2 Univers nuno, 6-26 07-27 tablets by ity of vitamin D3, 00:00: 04:59 [place] 25 mcg 00 :00 daily for Medical (1,000 30 days. Branch unit) tablet cyanocobala 2020- No [id number] 1000ug inject 1 Univers min 1,000 6-26 07-27 mL under ity o f mcg/mL 00:00: 04:59 the skin [place] injection 00 :00 every 24 Medica l (twenty-fo Branch ur) hours for 30 days. KCL 20 mEq 2020- No [id number] 20meq Take 1 Univers tablet 6- 07-27 tablet by ity of 00:00: 04:59 mouth [place] 00 :00 daily for Medical 30 days. Branch lactulose Yes 30mL Take 30 mL Un marline 10 gram/15 6-25 by mouth ity o f mL oral 18:10: daily. [place] solution 25 Medical Branch pantoprazol Yes 40mg Take 40 mg Univers e 6-25 by mouth ity of (PROTONIX) 18:10: daily. [place] 40 mg EC 25 Medical tablet Branch lactulose Yes 30mL Take 30 mL Un marline 10 gram/15 6-25 by mouth ity o f mL oral 18:10: daily. [place] solution 25 Medical Branch pantoprazol Yes 40mg [...] ity o f mL oral 13:10: daily. [place] solution 25 Medical Branch pantoprazol Yes 40mg [...] unresponsi ve to Ondansetro n proMETHazin Yes [id number] 12.5mg Take 1 Univers e 12.5 mg 6-25 tablet by ity o f tablet 00:00: mouth [place] 00 every 6 Medical (six) Branch hours as needed for Nausea and Vomiting (N/V) or N/V unresponsi ve to Ondansetro n. proMETHazin Yes [id number] 12.5mg Take 1 Univers e 12.5 mg 6-25 tablet by ity o f tablet 00:00: mouth [place] 00 every 6 Medical (six) Branch hours as needed for Nausea and Vomiting (N/V) or N/V unresponsi ve to Ondansetro n. proMETHazin Yes [id number] 12.5mg Take 1 Univers e 12.5 mg 6-25 tablet by ity o f tablet 00:00: mouth [place] 00 every 6 Medical (six) Branch hours as needed for Nausea and Vomiting (N/V) or N/V unresponsi ve to Ondansetro n. proMETHazin Yes [id number] 12.5mg Take 1 Univers e 12.5 mg 6-25 tablet by ity o f tablet 00:00: mouth [place] 00 every 6 Medical (six) Branch hours as needed for Nausea and Vomiting (N/V) or N/V unresponsi ve to Ondansetro n. proMETHazin Yes [id number] 12.5mg Take 1 Univers e 12.5 mg 6-25 tablet by ity o f tablet 00:00: mouth [place] 00 every 6 Medical (six) Branch hours as needed for Nausea and Vomiting (N/V) or N/V unresponsi ve to Ondansetro n. proMETHazin Yes [id number] 12.5mg Take 1 Univers e 12.5 mg 6-25 tablet by ity o f tablet 00:00: mouth [place] 00 every 6 Medical (six) Branch hours as needed for Nausea and Vomiting (N/V) or N/V unresponsi ve to Ondansetro n. proMETHazin Yes [id number] 12.5mg Take 1 Univers e 12.5 mg 6-25 tablet by ity o f tablet 00:00: mouth [place] 00 every 6 Medical (six) Branch hours as needed for Nausea and Vomiting (N/V) or N/V unresponsi ve to Ondansetro n. furosemide 2020- No [id number] 40mg Take 1 Univers 40 mg 6-25 07-26 tablet by ity of tablet 00:00: 04:59 mouth [place] 00 :00 every Medical morning Branch and evening for 30 days. lipase-prot 2020- No [id number] 2{capsu Take 2 Univers ease-amylas 6-25 07-26 le} capsules ity of e 00:00: 04:59 by mouth 3 [place] 12,000-38,0 00 :00 (three) Medic al 00 -60,000 times Branch unit daily with capsule meals for 30 days. lactobacill 2020- No [id number] .5mg Take 1 Univers us 6-25 07-26 tablet by ity of acidophilus 00:00: 04:59 mouth 2 [place] 00 :00 (two) Medical times Branch daily for 30 days. furosemide 2020- No [id number] 40mg Take 1 Univers 40 mg 6-25 07-26 tablet by ity of tablet 00:00: 04:59 mouth [place] 00 :00 every Medical morning Branch and evening for 30 days. lipase-prot 2020- No [id number] 2{capsu Take 2 Univers ease-amylas 6-25 07-26 le} capsules ity of e 00:00: 04:59 by mouth 3 [place] 12,000-38,0 00 :00 (three) Medic al 00 -60,000 times Branch unit daily with capsule meals for 30 days. lactobacill 2020- No [id number] .5mg Take 1 Univers us 6-25 07-26 tablet by ity of acidophilus 00:00: 04:59 mouth 2 [place] 00 :00 (two) Medical times Branch daily for 30 days. vancomycin 2020- No [id number] 125mg Take 1 Univers 125 mg 6-25 07-06 capsule by ity of capsule 00:00: 04:59 mouth 4 [place] 00 :00 (four) Medical times Branch daily for 10 days. vancomycin 2020- No [id number] 125mg Take 1 Univers 125 mg 6-25 [...] Indication s: acute pain cephALEXin 2020- No [id number] 500mg Take 1 Univers 500 mg 10-03 capsule by ity of capsule 00:00: 04:59 mouth 4 [place] 00 :00 (four) Medical times Branch daily for 5 days. cephALEXin 2020- No [id number] 500mg Take 1 Univers 500 mg 10-03 [...] QHSPRN, [place] mg 57 Starting Medical [facility] Branch 09/29/20 at 2251, Until Discontinu ed, Routine, Insomnia D5W 0.45% 2020- No IV Univers NaCl 09-29 Infusion, ity of (1/2NS) 1 L 21:00: 21:15 at 100 Quang as + KCL 20 00 :40 mL/hr, Medical mEq CONTINUOUS Branch , Starting [facility] 09/29/20 at 1600, Until Tue09/30/20 at 1615, Routine cholecalcif Yes 2000U 2,000 [facility] [place] [facility] ers nuno 09-29 Units, ity of (vitamin 20:00: Oral, [place] D3) tablet 00 DAILY, Medical 2,000 Units First dose Br anch on [facility] 09/29/20 at 1500, Until Discontinu ed, Routine lactobacill Yes .5mg 0.5 mg, Uni vers us 09-29 Oral, BID, ity of acidophilus 14:15: First dose [place] tablet 0.5 00 on [facility] Medical mg 09/29/20 at Branch 0915, Until Discontinu ed, Routine KCL Yes 20meq 20 mEq, Univers (KLOR-CON 09-29 Oral, ity of M20) tablet 14:00: DAILY, [place] 20 mEq 00 First dose Medical (after Branch last reorder) on [facility] 09/29/20 at 0900, Until Discontinu ed, Routine lipase-prot Yes 2{capsu 2 capsule, Univers ease-amylas 09-29 le} Oral, TID ity of e (CREON) 08:45: MEALS, [place] 12,000-38,0 00 First dose Me dical 00 -60,000 on [facility] Branch unit 09/29/20 at capsule 2 0345, [...] :00 s, ONCE, 1 Medic al dose, [facility] 09/29/20 at 0245, Routine FENTanyl PF 2020- No 50ug 50 mcg, Un marline (SUBLIMAZE 09-29 Slow IV ity o f (PF)) 07:30: 06:27 Push, [place] injection 00 :00 ONCE, 1 Medical 50 mcg dose, [facility] 09/29/20 at 0230, Routine piperacilli 2020-2020- No 3.375g 3.375 g, Univers n-tazobacta 09-29 IV ity of m (ZOSYN) 07:30: 07:00 Piggyback, [place] 3.375 g in 00 :00 ONCE, 1 Medica l NaCl 0.9% dose, [facility] Branc h (NS) 100 mL 09/29/20 at [...] injection 4 17 Starting Medi molly mg [facility] Branch 09/29/20 at 0142, Until Discontinu ed, Routine, Nausea and Vomiting (N/V) iopamidol 2020- No [id number] 100mL 100 mL, Univers (ISOVUE 09-29 Intravenou [...] Spirit 00:00: 00:00 - [facility] 00 :00 [facility] flu vaccine 2020- No .5mL 0.5 mL, [...] for Pain (scale 4-6). acetaminoph 2020-0 Yes [id number] 1{tbl} Take 1 Univers en-codeine 5-02 tablet by ity of 300-30 mg 00:00: mouth [place] tablet 00 every 4 Medical (four) Branch hours as needed for Pain (scale 4-6). acetaminoph 2020-0 Yes [id number] 1{tbl} Take 1 Univers en-codeine 5-02 tablet by ity of 300-30 mg 00:00: mouth [place] tablet 00 every 4 Medical (four) Branch hours as needed for Pain (scale 4-6). acetaminoph 2020-0 Yes [id number] 1{tbl} Take 1 Univers en-codeine 5-02 tablet by ity of 300-30 mg 00:00: mouth [place] tablet 00 every 4 Medical (four) Branch hours as needed for Pain (scale 4-6). lactulose 2019-0 2020- No [id number] 30mL Take 30 mL Univers 10 gram/15 5-05 17- by mouth 2 it y of mL oral 00:00: 04:59 (two) [place] solution 00 :00 times Medical daily for Branch 30 days. pantoprazol 2019-0 2020- No [id number] 40mg Take 1 Univers e 40 mg EC -05 17- tablet by ity of tablet 00:00: 04:59 mouth [place] 00 :00 daily for Medical 30 days. Branch lactulose 2019-0 2020- No [id number] 30mL Take 30 mL Univers 10 gram/15 -05 17-02 by mouth 2 it y of mL oral 00:00: 04:59 (two) [place] solution 00 :00 times Medical daily for Branch 30 days. pantoprazol 2019-0 2020- No [id number] 40mg Take 1 Univers e 40 mg EC -05 17- tablet by ity of tablet 00:00: 04:59 mouth [place] 00 :00 daily for Medical 30 days. Branch propranolol 2019-0 2020- No [id number] 10mg Take 1 Univers 10 mg 5- [...] e Sodium e Sodium Singh defined Spir [facility] Acetaminoph Acetaminoph Yes Gm not Common en-Codeine en-Codeine Singh defined [facility] #3 #3 [facility] Oseltamivir Oseltamivir Yes Gm not Common Phosphate Phosphate Singh defined Sp cleopatra [facility] Levofloxaci Levofloxaci Yes Gm not Common n n Singh defined [facility] Xifaxan Xifaxan Yes Gm not Common Singh defined [facility] Lactulose Lactulose Yes Gm not Co mmon Singh defined [facility] Albuterol Albuterol Yes Gm not Co mmon Sulfate HFA Sulfate HFA Singh defined [facility] Azithromyci Azithromyci Yes Gm not Common n n Singh defined [facility] Amoxicillin Amoxicillin Yes Gm not Common -Pot -Pot Singh defined Spirit Clavulanate Clavulanate - [facility] Immunizations Ordered Filled Immunization Date Status Comments [facility] e Immunization Name Name Pneumococcal 2020-10-03 [...] Completed Unive rsity of MODERNA VACCINE 00:00:00 [facility] [place] [facility] ical Branch SARS-COV-2 COVID-19 2020-08-08 Completed Unive rsity of MODERNA VACCINE 00:00:00 [facility] [place] [facility] ical Branch SARS-COV-2 COVID-19 2020-08-08 Completed Unive rsity of MODERNA VACCINE 00:00:00 [facility] [place] [facility] ical Branch SARS-COV-2 COVID-19 2020-08-08 Completed Unive rsity of MODERNA VACCINE 00:00:00 [facility] [place] [facility] ical Branch SARS-COV-2 COVID-19 2020-08-08 Completed Unive rsity of MODERNA VACCINE 00:00:00 [facility] [place] [facility] ical Branch SARS-COV-2 COVID-19 2020-08-08 Completed Unive rsity of MODERNA VACCINE 00:00:00 [facility] [place] [facility] ical Branch SARS-COV-2 COVID-19 2020-08-08 Completed Unive rsity of MODERNA VACCINE 00:00:00 [facility] [place] [facility] ical Branch SARS-COV-2 COVID-19 2020-08-08 Completed Unive rsity of MODERNA VACCINE 00:00:00 [facility] [place] [facility] SARS-COV-2 COVID-19 2020-07-11 Completed Unive rsity of MODERNA VACCINE 00:00:00 [facility] [place] [facility] SARS-COV-2 COVID-19 2020-07-11 Completed Unive rsity of MODERNA VACCINE 00:00:00 [facility] [place] [facility] SARS-COV-2 COVID-19 2020-07-11 Completed Unive rsity of MODERNA VACCINE 00:00:00 [facility] [place] [facility] SARS-COV-2 COVID-19 2020-07-11 Completed Unive rsity of MODERNA VACCINE 00:00:00 [facility] [place] [facility] SARS-COV-2 COVID-19 2020-07-11 Completed Unive rsity of MODERNA VACCINE 00:00:00 [facility] [place] [facility] SARS-COV-2 COVID-19 2020-07-11 Completed Unive rsity of MODERNA VACCINE 00:00:00 [facility] [place] [facility] SARS-COV-2 COVID-19 2020-07-11 Completed Unive rsity of MODERNA VACCINE 00:00:00 [facility] [place] [facility] SARS-COV-2 COVID-19 2020-07-11 Completed Unive rsity of MODERNA VACCINE 00:00:00 [facility] [place] [facility] Influenza Virus 2019-08-11 Completed Universit y of Vaccine Quad .5 mL 00:00:00 [facility] 6+ MO Branch Influenza Virus 2019-08-11 Completed Universit y of Vaccine [place] .5 mL 00:00:00 [facility] 6+ MO Branch Influenza Virus 2019-08-11 Completed Universit y of Vaccine [place] .5 mL 00:00:00 [place] [facility] IM 6+ MO Branch Influenza Virus 2019-08-11 Completed Universit y of Vaccine [place] .5 mL 00:00:00 [place] [facility] IM 6+ MO Branch Influenza Virus 2019-08-11 Completed Universit y of Vaccine [place] .5 mL 00:00:00 [place] [facility] IM 6+ MO Branch Influenza Virus 2019-08-11 Completed Universit y of Vaccine [place] .5 mL 00:00:00 [facility] 6+ MO Branch Influenza Virus 2019-08-11 Completed Universit y of Vaccine [place] .5 mL 00:00:00 [place] [facility] IM 6+ MO Branch Influenza Virus 2019-08-11 Completed Universit y of Vaccine [place] .5 mL 00:00:00 [facility] IM 6+ MO Branch Influenza Virus 2019-08-11 Completed Universit y of Vaccine [place] .5 mL 00:00:00 [facility] IM 6+ MO Branch Influenza Virus 2019-08-11 Completed Universit y of Vaccine [place] .5 mL 00:00:00 [facility] IM 6+ MO Branch Influenza Virus 2019-08-11 Completed Universit y of Vaccine [place] .5 mL 00:00:00 [facility] IM 6+ MO Branch Vital Signs Vital Name Observation Time Observation Value Comments Source Systolic blood 2021-04-02 18:55:00 138 mm[Hg] Univer sity of pressure [facility] Diastolic blood 2021-04-02 18:55:00 104 mm[Hg] Unive rsity of pressure [facility] Heart rate 2021-04-02 18:55:00 74 /min Universi ty [facility] Body temperature 2021-04-02 18:55:00 36.78 Sandee [facility] [place] [facility] ersity [facility] Respiratory rate 2021-04-02 18:55:00 18 /min Univ ersity of [facility] Body weight 2021-04-02 18:55:00 122.471 kg Universi ty [facility] BMI 2021-04-02 18:55:00 46.35 kg/m2 Universi ty [facility] Oxygen saturation in 2021-04-02 18:55:00 97 /min University of Arterial blood by [facility] Pulse oximetry Branch Systolic blood 2020-10-03 17:23:00 132 mm[Hg] Univer sity of pressure [facility] Diastolic blood 2020-10-03 17:23:00 56 mm[Hg] Unive rsity of pressure [facility] Heart rate 2020-10-03 17:23:00 88 /min Universi ty of [facility] Body temperature 2020-10-03 17:23:00 36.94 Sandee [address] [facility] Respiratory rate 2020-10-03 17:23:00 18 /min Univ ersity [facility] Oxygen saturation in 2020-10-03 17:23:00 94 /min University of Arterial blood by [facility] Pulse oximetry Branch Body weight 2020-09-30 08:11:00 121.473 kg Universi ty [facility] [place] [facility] BMI 2020-09-30 08:11:00 47.44 kg/m2 Universi ty of [place] [facility] Body height 2020-09-29 03:33:00 160 cm Universi ty of [place] [facility] Diastolic blood 2019-08-11 20:04:00 44 mm[Hg] Unive rsity of pressure [facility] Heart rate 2019-08-11 20:04:00 70 /min Universi ty of [place] [facility] Body temperature 2019-08-11 20:04:00 36.61 Sandee Univ ersity of [place] [facility] Respiratory rate 2019-08-11 20:04:00 18 /min Univ ersity of [place] [facility] Oxygen saturation in 2019-08-11 20:04:00 91 /min University of Arterial blood by [facility] Pulse oximetry Branch Systolic blood 2019-08-11 20:04:00 107 mm[Hg] Univer sity of [facility] Body height 2019-08-10 08:01:00 162.6 cm Universi ty of [place] [facility] [place] Body weight 2019-08-10 08:01:00 119.296 kg Universi ty of [place] [facility] BMI 2019-08-10 08:01:00 45.14 kg/m2 Universi ty of [place] [facility] Diastolic blood 2019-08-11 20:04:00 44 mm[Hg] Unive rsity of [facility] Heart rate 2019-08-11 20:04:00 70 /min Universi ty of [place] [facility] Body temperature 2019-08-11 20:04:00 36.61 Sandee Univ ersity of [place] [facility] Respiratory rate 2019-08-11 20:04:00 18 /min Univ ersity of [place] [facility] Oxygen saturation in 2019-08-11 20:04:00 91 /min University of Arterial blood by [facility] Pulse oximetry Branch Systolic blood 2019-08-11 20:04:00 107 mm[Hg] Univer sity of [facility] Body height 2019-08-10 08:01:00 162.6 cm Universi ty of [place] [facility] [place] Body weight 2019-08-10 08:01:00 119.296 kg Universi ty of [place] [facility] BMI 2019-08-10 08:01:00 45.14 kg/m2 Universi ty of [place] [facility] Procedures Procedure Date / Time Performing Clinician Source Performed XR KNEE 3 VW LEFT 2021-04-02 20:10:39 Kinsey Green [facility] CONSENT/REFUSAL FOR 2021-04-02 17:59:31 Doctor Unassigned, [facility] [place] [facility] DIAGNOSIS AND TREATMENT [place] [facility] ASSIGNMENT OF BENEFITS 2021-03-10 20:29:46 Doctor Unassigned, [facility] [place] [facility] PHOSPHORUS 2020-10-03 08:52:00 [facility] 2020-10-03 08:52:00 [facility] COMP. METABOLIC PANEL 2020-10-03 08:52:00 Puneet [facility] ([id number]) [facility] CBC WITH DIFF 2020-10-03 08:52:00 Puneet [facility] COMP. METABOLIC PANEL 2020-10-02 08:39:00 [id number] CBC WITH DIFF 2020-10-02 08:39:00 [facility] US DUPLEX VENOUS ARM LEFT 2020-10-01 16:22:58 Brenda Teixeira [facility] - BY VASCULAR LAB [facility] COMP. METABOLIC PANEL 2020-10-01 07:45:[address] [facility] ([id number]) [facility] CBC WITH DIFF 2020-10-01 07:45:00 T[facility]a [facility] TROPONIN I 2020-09-30 10:56:00 Marco Levy [facility] COMP. METABOLIC PANEL 2020-09-30 10:56:[address] [facility] ([id number]) [facility] CBC WITH DIFF 2020-09-30 10:56:00 [facility] N-TERMINAL PRO-BNP 2020-09-30 08:05:00 Wes Brito [facility] OCCULT (GUAIAC) BLOOD 2020-09-30 02:10:00 Millie [facility] FECAL LEUKOCYTES 2020-09-30 02:10:00 Millie sharad [facility] CLOSTRIDIUM DIFFICILE 2020-09-30 02:10:00 Millie sharad [facility] FECAL PATHOGENS BY PCR 2020-09-30 02:10:00 Wes Brito [facility] POCT GLUCOSE (AUTOMATED) 2020-09-30 00:35:00 Rene Evans [facility] BASIC METABOLIC PANEL 2020-09-29 21:11:[address] [facility] (NA, K, CL, CO2, GLUCOSE, Medica l Branch BUN, CREATININE, CA) HEMOGLOBIN 2020-09-29 21:11:00 Tomasa [facility]am[facility] TRANSTHORACIC ECHO (TTE) 2020-09-29 16:03:00 Marco Levy [facility] HB ECG ROUTINE & RHYTHM 2020-09-29 11:18:58 Wes Brito [facility] OSMOLALITY URINE 2020-09-29 08:56:00 Millie [facility] URINE CULTURE 2020-09-29 08:56:00 Millie [facility] SODIUM, URINE RANDOM 2020-09-29 08:56:00 Wes Brito [facility] PROTEIN CREAT RATIO URINE 2020-09-29 08:56:00 Wes Brito [facility] BLOOD CULTURE SCREEN 2020-09-29 08:32:00 Wes Brito [facility] LACTIC ACID WHOLE BLOOD 2020-09-29 08:32:00 Millie sharad [facility] VITAMIN B12, LEVEL 2020-09-29 08:31:00 Wes Brito [facility] C-REACTIVE PROTEIN 2020-09-29 08:31:00 Wes Brito [facility] IRON PANEL 2020-09-29 08:31:00 Millie [facility]ad [facility] SEDIMENTATION RATE 2020-09-29 08:31:00 Wes Brito [facility] DIFF CONSULT 2020-09-29 08:31:00 Millie sharad [facility] CBC WITH DIFF 2020-09-29 08:31:00 Millie [facility] PROTHROMBIN TIME / INR 2020-09-29 08:31:00 Wes Brito [facility] N-TERMINAL PRO-BNP 2020-09-29 08:31:00 Wes Brito [facility] VITAMIN D, 25-OH 2020-09-29 08:31:00 Millie [facility] PROCALCITONIN 2020-09-29 08:31:00 Millie [facility] COVID-19 (ID NOW RAPID 2020-09-29 05:10:00 Rene Evans [facility] TESTING) Medical Branch LAB ONLY COVID 2020-09-29 05:10:00 Rene Evans [facility] INTERPRETATION [facility] CT ABDOMEN PELVIS W 2020-09-29 04:56:31 Rene Evans [facility] CONTRAST [facility] Branch URINALYSIS 2020-09-29 04:19:00 Rene Evans [facility] PHOSPHORUS 2020-09-29 03:54:00 Millie [facility]ad [facility] CREATINE KINASE 2020-09-29 03:54:00 Millie [facility]ad [facility] URIC ACID 2020-09-29 03:54:00 [facility]ie [facility] LIPASE 2020-09-29 03:54:00 Rene Evans [facility] MAGNESIUM 2020-09-29 03:54:00 Millie [facility] FERRITIN SERUM 2020-09-29 03:54:00 Millie [facility] TROPONIN I 2020-09-29 03:54:00 Marco Levy [facility] THYROID STIMULATING 2020-09-29 03:54:00 Wes Brito [facility] HORMONE Medical Branch COMP. METABOLIC PANEL 2020-09-29 03:54:00 Rene Evans [facility] ([id number]) Medical [place] LIPID PANEL ([id number])(TOTAL 2020-09-29 03:54:00 Wes Brito [facility] CHOLESTEROL, [facility] TRIGLYCERIDES, HDL) CBC WITH DIFF 2020-09-29 03:54:00 Rene Evans [facility] GLYCOSYLATED HEMOGLOBIN 2020-09-29 03:54:00 Wes Brito [facility] ([id number]) [facility] N-TERMINAL PRO-BNP 2020-09-29 03:54:00 Wes Brito [facility] CONSENT/REFUSAL FOR 2020-09-29 03:18:51 Doctor Unassigned, [facility] NOTICE OF PRIVACY 2020-09-29 03:18:30 Doctor Unassigned, [facility] PRACTICES [place] [facility] [place] [facility] ABDOMEN PELVIS W 2019-08-11 14:50:46 [facility] CONTRAST [facility] COMP. METABOLIC PANEL 2019-08-11 08:00:[address] [facility] ([id number]) [facility] CBC WITH DIFFERENTIAL 2019-08-11 08:00:00 Millie sharad [facility] CBC WITH DIFFERENTIAL 2019-08-11 08:00:00 Wes Brito [facility] XR SMALL BOWEL SERIES 2019-08-10 21:18:47 Valente Piña [facility] XR ABDOMEN 1 VW 2019-08-10 11:52:39 [facility]o [facility] PHOSPHORUS 2019-08-10 11:11:00 [facility] CREATINE KINASE 2019-08-10 11:11:00 [facility]ie [facility] AMYLASE 2019-08-10 11:11:00 [facility] LIPASE 2019-08-10 11:11:00 [facility] MAGNESIUM 2019-08-10 11:11:00 Wes Brito [facility] TEST, SERUM 2019-08-10 11:11:00 Wes Brito [facility] THYROID STIMULATING 2019-08-10 11:11:00 [facility] HORMONE [facility] COMP. METABOLIC PANEL 2019-08-10 11:11:[address] [facility] ([id number]) [facility] LIPID PANEL (50677)(TOTAL 2019-08-10 11:11:00 Wes Brito [facility] CHOLESTEROL, [facility] TRIGLYCERIDES, HDL) SEDIMENTATION RATE 2019-08-10 11:11:00 Wes Brito [facility] CBC WITH DIFFERENTIAL 2019-08-10 11:11:00 Wes Brito [facility] GLYCOSYLATED HEMOGLOBIN 2019-08-10 11:11:00 Wes Brito [facility] (A1C) [facility] PROTHROMBIN TIME / INR 2019-08-10 11:11:00 Wes Brito [facility] CORONAVIRUS COVID-19 2019-08-10 09:04:00 Wes Brito [facility] TESTING [facility] Encounters Start End Encounter Admission Attending Care Care Encounter Source Date/Time Date/Time Type Type Clinicians Facility Department ID 2021-05-06 Outpatient Kattegummul [facility] [id number] Common 14:30:56 Madhu peterson [facility] 2021-05-06 Outpatient Kattegummul [facility] [id number] Common 14:26:04 kristen, Madhu 32826 [facility] 2021-05-06 Outpatient Kattegummul [facility] [id number] Common 14:05:28 Madhu peterson [id number] [facility] 2021-05-06 Outpatient Kattegummul [facility] [id number] Common 13:37:29 Madhu peterson 13615 [facility] 2021-05-06 Outpatient Sloan, STREGENCY MERIDIAN [id number] Common 13:36:02 Annalise 97211 [facility] 2021-05-06 Outpatient Harley [facility] [id number] Common 11:25:36 Annalise 53580 [facility] 2021-02-09 Emergency [facility] [id number] Univers 02:25:27 ity [facility] 2021-04-07 2021-04-07 Letter Orthopedic [facility] 1.2.840.114 [id number] Univers 00:00:00 00:00:00 (Out) Clinic SPECIALTY 350.1.13.10 ity of [facility] 4.2.7.2.686 [facility] AT [phone] Ia [address]ia[address] 2021-04-02 2021-04-02 Emergency [facility] [id number] Univers 12:58:00 15:25:00 FOLUSHO [facility] 2021-04-02 2021-04-02 Emergency [facility] 1.2.840.114 [id number] Univers 12:58:00 15:25:00 [facility] 350.1.13.10 ity [facility] 4.2.7.2.686 [facility] [phone] [facility] 084 [place] 2021-03-11 2021-03-11 Telephone VERONIQUE Cruz 1.2.674.685 [id number] Univers 00:00:00 00:00:00 Frances SÁNCHEZ 350.1.13.10 it y of [facility] 4.2.7.2.686 Quang [id number] [facility] 019 [place] 2021-03-10 2021-03-10 Outpatient R NETTIE [facility] [id number] Univers 14:45:00 14:51:40 LEXIE [facility] 2021-03-10 2021-03-10 Outpatient R [facility] [id number] Univers 14:45:00 14:45:00 [id number] ity [facility] 2021-03-10 2021-03-10 Laboratory Only, Ang Db Test [facility] 1.2.8 40.114 [id number] Univers 14:29:53 14:44:53 Only Unknown, Attending HEALTH 350.1.13.10 ity of [place] 4.2.7.2.686 Quang as MARINA?BLEA [phone] [address] MEDICAL OFFICE BUILDING 2021-03-10 2021-03-10 Orders Doctor VERONIQUE 1.2.840.114 [id number] Univers 00:00:00 00:00:00 Only Unassigned, GONZALO 350.1.13.10 ity of [facility] [facility] 4.2.7.2.686 Quang as [id number] [facility] 009 Branch 2021-02-18 2021-02-20 Inpatient JAIME, [facility] [id number] [place] 00:00:00 00:00:00 CHERI [address] 2021-02-03 2021-02-04 Emergency X [facility] ERT [id number] Univers 21:10:00 03:21:[address] [facility] 2020-10-21 2020-10-27 Inpatient SYLVIA, [facility] [id number] [place] 00:00:00 00:00:00 ROBERTH [address] 2020-10-06 2020-10-06 Transition Jocelyne Taylor 1.2.840.114 [id number] Univers 00:00:00 00:00:00 of Care Madiha Sotelo 350.1.13.10 i [place] [phone] [facility] 403 Branch 2020-09-28 2020-10-03 [facility] Rene Evans [facility] 1.2.840. 114 [id number] Univers 22:23:00 13:05:00 Encounter MillieWes 350.1.13.10 ity [place] [phone] [facility] 081 Branch 2020-09-28 2020-09-28 Orders Doctor VERONIQUE 1.2.840.114 [id number] Univers 00:00:00 00:00:00 Only Unassigned, GONZALO 350.1.13.10 ity of [place] [facility] 4.2.7.2.686 Quang as [phone] [facility] 009 Branch 2020-09-09 2020-09-12 Inpatient VIKTOR BILLINGS [facility] [id number] [place] 00:00:00 00:00:00 462 Method i 2020-08-08 2020-08-08 Outpatient Sami GERMAN, [facility] [id number] Univers 15:40:00 15:40:00 TERRI ity [facility] 2020-07-11 2020-07-11 Outpatient [facility] [id number] Univers 15:40:00 15:40:00 ity [facility] 2020-06-09 2020-06-22 Inpatient VIKTOR BILLINGS [facility] [id number] [place] 00:00:00 00:00:00 836 Method i 2020-03-19 2020-03-23 Inpatient DINAKAR, [facility] [id number] [place] 00:00:00 00:00:00 CHERI 742 Method i 2020-03-14 2020-03-18 Inpatient DINAKAR, [facility] [id number] 585 [place] 00:00:00 00:00:00 CHERI 157 Method i 2020-02-13 2020-02-13 Laboratory Lab, [facility] 1.2.840.114 [id number] 10:22:10 10:42:10 Only Fam Pob I Health 350.1.13.10 [place] 4.2.7.2.686 Professio [id number] nal [facility] Office Building [facility] 2020-02-13 2020-02-13 Laboratory Lab, [facility] Fam Pob I MSMB 1.2. 840.114 [id number] [facility] 10:22:10 10:42:10 Only Dulce [facility] 350.1.13.10 ity of [place] 4.2.7.2.686 Quang as Professio [phone] Ia dical [address] Office Building One 2019-09-28 2019-09-28 Outpatient [facility] [id number] Common 09:00:00 09:00:00 t Bone Bone [facility] Sp[facility] t [facility] 2019-09-18 2019-09-18 Outpatient [facility] [id number] Common 09:30:00 09:30:00 t Bone Bone and Spiri t and Joint [facility] 2019-08-14 2019-08-14 Transition Jocelyne Alexandra 1.2.840.114 [id number] Univers 00:00:00 00:00:00 of Care oJvanny Sotelo 350.1.13.10 ity [place] 4[place]2.7.2.686 [place] [phone] [facility] 403 Branch 2019-08-14 2019-08-14 Transition Jocelyne Alexandra 1.2.840.114 [id number] 00:00:00 00:00:00 of Care Jovanny Sotelo 350.1.13.10 [place] 4.2.7.2.686 [phone] [facility] 2019-08-10 2019-08-11 Inpatient [facility] [id number] Univers 02:55:00 16:09:00 ADNAN ity [facility] 2019-08-10 2019-08-11 [facility] 1.2.069.402 [id number] [facility] 02:55:00 16:09:00 Encounter Wes [place] 350.1.13.10 ity of [place] 4.2.7.2.686 [facility] [place] [id number] [facility] 081 [place] 2019-08-10 2019-08-11 [facility] 1.2.382.524 [id number] 02:55:00 16:09:00 Encounter Wes Amin 350.1.13.10 [place] 4.2.7.2.686 [place] [id number] 081 Results Test Description Test Time Test Comments Results Result Comments Source MAGNESIUM 2020-10-03 09:34:08 Test Item Value Reference Range Interpretation Comme nts MAGNESIUM (test code = 8734605350) 1.4 mg/dL 1.7-2.4 L Lab Interpretation (test code = 79876-9) Abnormal [facility]. METABOLIC PANEL (05894)2020-10-03 09:33:48 Test Item Value Reference Range Interpretation Comments NA (test code = 136 mmol/L 135-145 6772057981) K (test code = 3.3 mmol/L 3.5-5.0 L 3633096902) CL (test code = 100 mmol/L 98-108 6777434474) CO2 TOTAL (test code = 33 mmol/L 23-31 H 6807274602) AGAP (test code = 2-16 3495190332) BUN (test code = 3 mg/dL 7-23 L 2031007867) GLUCOSE (test code = 95 mg/dL 70-110 4934974861) CREATININE (test code = 0.47 mg/dL 0.50-1.04 L 6769281002) TOTAL BILI (test code = 1.5 mg/dL 0.1-1.1 H 6398867131) CALCIUM (test code = 8.1 mg/dL 8.6-10.6 L 8584197157) T PROTEIN (test code = 5.9 g/dL 6.3-8.2 L 2351505960) ALBUMIN (test code = 2.9 g/dL 3.5-5.0 L 5648062656) ALK PHOS (test code = 115 U/L 34-122 1335165860) ALTv (test code = 24 U/L 5-35 1742-6) AST(SGOT) (test code = 35 U/L 13-40 3649814373) eGFR (test code = mL/min/1.73m2 5981727160) SNOW (test code = SNOW) Association of [...] tests). Lab Interpretation Abnormal (test code = 39570-8) [facility]28 Test Item Value Reference Range Interpretation Comments PHOSPHORUS (test code = 2751270025) 2.8 mg/dL 2.5-5.0 Lab Interpretation (test code = Normal 03050-0) [facility] [id number] 09:31:46 Test Item Value Reference Range Interpretation [...] (test code = 53.8 fL 39.0-49.9 H 99232-9) RDW-CV (test code = 19.9 % 12.0-15.5 H 788-0) PLT (test code = See_Comment L [Automated 777-3) message] The sy stem which generated this result transmitted reference range : 166 - 358 10*3/ ?L. The reference r davi was not used to interpret this result as normal/abnormal . MPV (test code = 10.9 fL 9.5-12.9 31060-7) IPF % (test code = 3.6 % 1.3-7.7 Platelet count 6237600874) measured by fluorescence method. NRBC/100 WBC (test See_Comment [Automat ed code = 3763731666) message] The system which generated this result transmitted reference range : 0.0 - 10.0 /100 WBCs. The refer ence range was not u sed to interpret th is result as normal/abnormal . NRBC x10^3 (test code See_Comment [Auto mated = 7429612364) message] The s ystem which generated this result transmitted reference range : 10*3/?L. The reference range was not used to interpret this result as normal/abnormal . GRAN MAT (NEUT) % 68.1 % (test code = 770-8) IMM GRAN % (test code 1.10 % = 4420704426) LYMPH % (test code = 15.5 % 736-9) MONO % (test code = 11.3 % 5905-5) EOS % (test code = 3.4 % 713-8) BASO % (test code = 0.6 % 706-2) GRAN MAT x10^3(ANC) 2.42 10*3/uL 1.88-7.09 (test code = 5178320760) IMM GRAN x10^3 (test 0.04 10*3/uL 0.00-0.06 code = 9092592610) LYMPH x10^3 (test code 0.55 10*3/uL 1.32-3.29 L = 731-0) MONO x10^3 (test code 0.40 10*3/uL 0.33-0.92 = 742-7) EOS x10^3 (test code = 0.12 10*3/uL 0.03-0.39 711-2) BASO x10^3 (test code <0.03 0.01-0.07 = 704-7) Lab Interpretation Abnormal (test code = 13864-9) [facility] WITH [id number] 10:47:09 Test Item Value Reference Range Interpretation [...] (test code = 52.2 fL 39.0-49.9 H 33541-3) RDW-CV (test code = 18.6 % 12.0-15.5 H 788-0) PLT (test code = See_Comment L [Automated 777-3) message] The sy stem which generated this result transmitted reference range : 166 - 358 10*3/ ?L. The reference r davi was not used to interpret this result as normal/abnormal . MPV (test code = 10.1 fL 9.5-12.9 28649-3) IPF % (test code = 3.2 % 1.3-7.7 Platelet count 7139899879) measured by fluorescence method. NRBC/100 WBC (test See_Comment [Automat ed code = 4665609076) message] The system which generated this result transmitted reference range : 0.0 - 10.0 /100 WBCs. The refer ence range was not u sed to interpret th is result as normal/abnormal . NRBC x10^3 (test code See_Comment [Auto mated = 4113827560) message] The s ystem which generated this result transmitted reference range : 10*3/?L. The reference range was not used to interpret this result as normal/abnormal . GRAN MAT (NEUT) % 65.1 % (test code = 770-8) IMM GRAN % (test code 1.20 % = 2687483007) LYMPH % (test code = 16.9 % 736-9) MONO % (test code = 11.5 % 5905-5) EOS % (test code = 4.5 % 713-8) BASO % (test code = 0.8 % 706-2) GRAN MAT x10^3(ANC) 1.58 10*3/uL 1.88-7.09 L (test code = 3642375184) IMM GRAN x10^3 (test 0.03 10*3/uL 0.00-0.06 code = 2202619850) LYMPH x10^3 (test code 0.41 10*3/uL 1.32-3.29 L = 731-0) MONO x10^3 (test code 0.28 10*3/uL 0.33-0.92 L = 742-7) EOS x10^3 (test code = 0.11 10*3/uL 0.03-0.39 711-2) BASO x10^3 (test code <0.03 0.01-0.07 = 704-7) POLYCHROMASIA (test 2+ See_Comment [Automa josemanuel code = 01627-2) message] The system which generated this result transmitted reference range : 2+. The referen ce range was not u sed to interpret th is result as normal/abnormal . LG GRAN LYMPHS (test Rare Rare code = 4864077651) Lab Interpretation Abnormal (test code = 67217-3) [facility] (96996)2020-10-02 10:19:28 Test Item Value Reference Range Interpretation Comments NA (test code = 135 mmol/L 135-145 8385590611) K (test code = 3.4 mmol/L 3.5-5.0 L 7859091176) CL (test code = 104 mmol/L 98-108 3462500886) CO2 TOTAL (test code = 27 mmol/L 23-31 6195303121) AGAP (test code = 2-16 8153959717) BUN (test code = 4 mg/dL 7-23 L 2332089606) GLUCOSE (test code = 97 mg/dL 70-110 0558223444) CREATININE (test code = 0.45 mg/dL 0.50-1.04 L 9675458930) TOTAL BILI (test code = 1.7 mg/dL 0.1-1.1 H 9398630900) CALCIUM (test code = 8.2 mg/dL 8.6-10.6 L 0232708193) T PROTEIN (test code = 6.0 g/dL 6.3-8.2 L 8090541452) ALBUMIN (test code = 3.1 g/dL 3.5-5.0 L 3208845746) ALK PHOS (test code = 120 U/L 34-122 8243848212) ALTv (test code = 26 U/L 5-35 1742-6) AST(SGOT) (test code = 39 U/L 13-40 9782186451) eGFR (test code = mL/min/1.73m2 9172292754) SNOW (test code = SNOW) Association of [...] tests). Lab Interpretation Abnormal (test code = 07049-4) [facility] COVID [id number] 02:50:27COVID DMT InterpretationInterpretation/Recommendations: Molecular NAAT Tests for [...] COVID-19 testing the patient has had at [facility], including molecular NAAT testing (more commonly known as PCR testing and Rapid ID Now testing) and antibody testing. It does not take into account any testing that a patient has had outside of the [facility] medical record. [facility] SERVICESCOVID Resu [id number] NAAT (no units) ? ? Date ? Value ? 02/13/2020 ? Not Detected ? SARS-CoV-2 Rapid ID NOW (no units) ? ? Date ? Value ? 09/29/2020 ? Not Detected ? ? ? 08/10/2019 ? Not Detected ? [facility] WITH [id number] 10:31:29 Test Item Value Reference Range Interpretation [...] (test code = 52.3 fL 39.0-49.9 H 59856-1) RDW-CV (test code = 18.4 % 12.0-15.5 H 788-0) PLT (test code = See_Comment LL [Automated 777-3) message] The sy stem which generated this result transmitted reference range : 166 - 358 10*3/ ?L. The reference r davi was not used to interpret this result as normal/abnormal . MPV (test code = 11.2 fL 9.5-12.9 13739-1) IPF % (test code = 3.9 % 1.3-7.7 Platelet count 9148825442) measured by fluorescence method. NRBC/100 WBC (test See_Comment [Automat ed code = 4742016161) message] The system which generated this result transmitted reference range : 0.0 - 10.0 /100 WBCs. The refer ence range was not u sed to interpret th is result as normal/abnormal . NRBC x10^3 (test code <0.01 See_Comment [Auto mated = 3854662659) message] The s ystem which generated this result transmitted reference range : 10*3/?L. The reference range was not used to interpret this result as normal/abnormal . GRAN MAT (NEUT) % 57.5 % (test code = 770-8) IMM GRAN % (test code 0.50 % = 6866432555) LYMPH % (test code = 20.7 % 736-9) MONO % (test code = 13.3 % 5905-5) EOS % (test code = 6.9 % 713-8) BASO % (test code = 1.1 % 706-2) GRAN MAT x10^3(ANC) 1.08 10*3/uL 1.88-7.09 L (test code = 7529876744) IMM GRAN x10^3 (test <0.03 0.00-0.06 code = 3180773108) LYMPH x10^3 (test code 0.39 10*3/uL 1.32-3.29 L = 731-0) MONO x10^3 (test code 0.25 10*3/uL 0.33-0.92 L = 742-7) EOS x10^3 (test code = 0.13 10*3/uL 0.03-0.39 711-2) BASO x10^3 (test code <0.03 0.01-0.07 = 704-7) BASO STIPPLING (test Present A code = 703-9) ELLIPTO/OVAL (test 2+ See_Comment A [Automat ed code = 67941-0) message] The system which generated this result transmitted reference range : (none). The reference range was not used to interpret this result as normal/abnormal . POLYCHROMASIA (test 2+ See_Comment [Automa josemanuel code = 30276-3) message] The system which generated this result transmitted reference range : 2+. The referen ce range was not u sed to interpret th is result as normal/abnormal . Lab Interpretation Abnormal (test code = 24190-9) [facility]. METABOLIC PANEL (95957)2020-10-01 09:19:22 Test Item Value Reference Range Interpretation Comments NA (test code = 135 mmol/L 135-145 0476251106) K (test code = 4.0 mmol/L 3.5-5.0 9019902493) CL (test code = 107 mmol/L 98-108 7693924929) CO2 TOTAL (test code = 24 mmol/L 23-31 6610005009) AGAP (test code = 2-16 3834697525) BUN (test code = 7 mg/dL 7-23 2528919732) GLUCOSE (test code = 93 mg/dL 70-110 2350846462) CREATININE (test code = 0.47 mg/dL 0.50-1.04 L 6826565769) TOTAL BILI (test code = 1.6 mg/dL 0.1-1.1 H 3337492358) CALCIUM (test code = 8.1 mg/dL 8.6-10.6 L 6163047278) T PROTEIN (test code = 5.8 g/dL 6.3-8.2 L 4572578653) ALBUMIN (test code = 2.8 g/dL 3.5-5.0 L 2938205890) ALK PHOS (test code = 106 U/L 34-122 4346046546) ALTv (test code = 23 U/L 5-35 1742-6) AST(SGOT) (test code = 39 U/L 13-40 8713857785) eGFR (test code = mL/min/1.73m2 7926696361) SNOW (test code = SNOW) Association of [...] tests). Lab Interpretation Abnormal (test code = 33225-4) [facility]ED[facility] [id number] 20:47:45 Test Item Value Reference Range Interpretation Comments TROPONIN I (test 0.002 ng/mL See_Comment [Automated code = 9957366045) message] The system which generated this result [...] ? Lab Interpretation Normal (test code = 99632-5) [facility] [id number] 19:11:57 Test Item Value Reference Range Interpretation Comments URINE CULTURE (test code <10,000 CFU/mL = 630-4) Gram-Positive Cocci [facility] BY [id number] 18:17:03 Test Item Value Reference Range Interpretation Comments Campylobacter (jejuni, Negative Negative, coli and upsaliensis) Indeterminate, (test code = 20246-7) See comment Plesiomonas shigelloides Negative Negative, (test code = 59189-7) Indeterminate, See comment Salmonella (test code = Negative Negative, 92906-5) Indeterminate, See comment Yersinia enterocolitica Negative Negative, (test code = 35882-3) Indeterminate, See comment Vibrio (test code = Negative Negative, 15276-0) Indeterminate, See comment Vibrio cholerae (test Negative Negative, code = 38312-8) Indeterminate, See comment Enteroaggregative E. Negative Negative, coli (EAEC) (test code = Indeterminate, 93540-6) See comment Enteropathogenic E. coli Negative Negative, N/A, (EPEC) (test code = Indeterminate, 45297-0) See comment Enterotoxigenic E. coli Negative Negative, (ETEC) (test code = Indeterminate, 82921-1) See comment Shiga toxin-Producing E. Negative Negative, coli (STEC) (test code = Indeterminate, 96317-9) See comment Shigella/Enteroinvasive Negative Negative, E. coli (EIEC) (test Indeterminate, code = 20936-3) See comment Cryptosporidium (test Negative Negative, code = 47584-3) Indeterminate, See comment Cyclospora cayetanensis Negative Negative, (test code = 55721-2) Indeterminate, See comment Entamoeba histolytica Negative Negative, (test code = 80208-3) Indeterminate, See comment Giardia lamblia (test Negative Negative, code = 22093-9) Indeterminate, See comment Adenovirus F 40/41 (test Negative Negative, code = 45000-4) Indeterminate, See comment Astrovirus (test code = Negative Negative, 85898-2) Indeterminate, See comment Norovirus GI/GII (test Negative Negative, code = 91978-4) Indeterminate, See comment Rotavirus A (test code = Negative Negative, 70562-8) Indeterminate, See comment Sapovirus (test code = Negative Negative, 20192-0) Indeterminate, See comment Clostridioides Positive Negative, A (Clostridium) difficile Indeterminate, Toxin A/B (test code = See comment 60293-3) SNOW (test code = SNOW) Based on [...] the binary toxin gene (CDT), and the avrhqm-ccrp-oesu deletion at nucleotide 117 within the gene [...] organism. Lab Interpretation (test Abnormal code = 30941-6) [facility] [id number] 14:26:32 Test Item Value Reference Range Interpretation Comments Occult (guaiac) Blood (test code = Negative Negative 2335-8) Lab Interpretation (test code = Normal 05035-2) [facility] WITH [id number] 13:54:12 Test Item Value Reference Range Interpretation [...] (test code = 52.9 fL 39.0-49.9 H 86027-6) RDW-CV (test code = 18.3 % 12.0-15.5 H 788-0) PLT (test code = See_Comment LL [Automated 777-3) message] The sy stem which generated this result transmitted reference range : 166 - 358 10*3/ ?L. The reference r davi was not used to interpret this result as normal/abnormal . MPV (test code = 10.8 fL 9.5-12.9 62512-5) IPF % (test code = 4.2 % 1.3-7.7 Platelet count 6442629580) measured by fluorescence method. NRBC/100 WBC (test See_Comment [Automat ed code = 6865317679) message] The system which generated this result transmitted reference range : 0.0 - 10.0 /100 WBCs. The refer ence range was not u sed to interpret th is result as normal/abnormal . NRBC x10^3 (test code <0.01 See_Comment [Auto mated = 8814836641) message] The s ystem which generated this result transmitted reference range : 10*3/?L. The reference range was not used to interpret this result as normal/abnormal . GRAN MAT (NEUT) % 60.0 % (test code = 770-8) IMM GRAN % (test code 0.40 % = 7789184735) LYMPH % (test code = 20.6 % 736-9) MONO % (test code = 11.3 % 5905-5) EOS % (test code = 6.9 % 713-8) BASO % (test code = 0.8 % 706-2) GRAN MAT x10^3(ANC) 1.49 10*3/uL 1.88-7.09 L (test code = 5416373595) IMM GRAN x10^3 (test <0.03 0.00-0.06 code = 2471972547) LYMPH x10^3 (test code 0.51 10*3/uL 1.32-3.29 L = 731-0) MONO x10^3 (test code 0.28 10*3/uL 0.33-0.92 L = 742-7) EOS x10^3 (test code = 0.17 10*3/uL 0.03-0.39 711-2) BASO x10^3 (test code <0.03 0.01-0.07 = 704-7) Lab Interpretation Abnormal (test code = 59199-2) [facility]. METABOLIC PANEL (12011)2020-09-30 12:47:49 Test Item Value Reference Range Interpretation Comments NA (test code = 135 mmol/L 135-145 [id number]) K (test code = 4.0 mmol/L 3.5-5.0 [id number]) CL (test code = 108 mmol/L 98-108 5278506180) CO2 TOTAL (test code = 23 mmol/L 23-31 9860206675) AGAP (test code = 2-16 3204077981) BUN (test code = 8 mg/dL 7-23 5437404298) GLUCOSE (test code = 109 mg/dL 70-110 8016866156) CREATININE (test code = 0.52 mg/dL 0.50-1.04 8397634308) TOTAL BILI (test code = 1.7 mg/dL 0.1-1.1 H 6201001895) CALCIUM (test code = 8.0 mg/dL 8.6-10.6 L 3838723168) T PROTEIN (test code = 5.7 g/dL 6.3-8.2 L 1942414490) ALBUMIN (test code = 2.7 g/dL 3.5-5.0 L 1161235599) ALK PHOS (test code = 106 U/L 34-122 9814043499) ALTv (test code = 22 U/L 5-35 1742-6) AST(SGOT) (test code = 34 U/L 13-40 5845534132) eGFR (test code = mL/min/1.73m2 4244441434) SNOW (test code = SNOW) Association of [...] tests). Lab Interpretation Abnormal (test code = 68596-6) [facility] [id number] 11:49:39 Test Item Value Reference Range Interpretation Comments Fecal Leukocytes (test code = Positive Negative A 3754138999) Lab Interpretation (test code = Abnormal 20877-4) [facility]AL [id number] 10:20:53 Test Item Value Reference Range Interpretation Comments NT-proBNP (test code 68 pg/mL See_Comment [Autom ated = 7115039102) message] The system which generated this result transmitted reference range : <=125. The reference range was not used to interpret this result as normal/abnormal . SNOW (test code = SNOW) Biotin has been reported to cause a negative bias, interpret results relative to patient's use of biotin. Lab Interpretation Normal (test code = 62739-2) [facility]CLOSTRIDIUM DIFFICILE [id number] 05:18:16 Test Item Value Reference Range Interpretation Comments Clostridioides (Clostridium) Negative Negative difficile (test code = 60132-1) Lab Interpretation (test code = Normal 26482-0) [facility]ATED)2020-09-30 00:54:42 Test Item Value Reference Range Interpretation Comments POCT GLU (test code = 4968347299) 111 mg/dL 70-110 H Lab Interpretation (test code = Abnormal 18218-2) [facility]BAS[facility]OL[facility] PANEL (NA, K, CL, CO2, GLUCOSE, BUN, CREATININE, CA)2020-09-29 22:08:22 Test Item Value Reference Range Interpretation Comments NA (test code = 135 mmol/L 135-145 7612320998) K (test code = 3.7 mmol/L 3.5-5.0 1541825589) CL (test code = 108 mmol/L 98-108 0869162863) CO2 TOTAL (test code = 22 mmol/L 23-31 L 6400308758) AGAP (test code = 2-16 8673350682) BUN (test code = 9 mg/dL 7-23 6138921156) GLUCOSE (test code = 104 mg/dL 70-110 6908090248) CREATININE (test code = 0.51 mg/dL 0.50-1.04 5325332835) CALCIUM (test code = 7.9 mg/dL 8.6-10.6 L 3472850871) eGFR (test code = mL/min/1.73m2 4362929670) SNOW (test code = SNOW) Association of [...] tests). Lab Interpretation Abnormal (test code = 27037-1) [facility]HEMOGLOBIN2021-[facility]-21 21:41:20 Test Item Value Reference Range Interpretation Comments HGB (test code = 718-7) 7.4 g/dL 11.6-15.0 L Lab Interpretation (test code = Abnormal 64743-0) [facility] HospitalVITAMIN B12, [id number] 20:39:52 Test Item Value Reference Range Interpretation Comments VIT B12 (test code = 212 pg/mL 240-930 L 6693965366) SNOW (test code = SNOW) Biotin has been reported to cause a positive bias, interpret results relative to patient's use of biotin. 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.[facility] HospitalC-REACTIVE [id number] 17:01:56 Test Item Value Reference Range Interpretation Comments CRP (test code = 0795324985) 4.7 mg/dL <0.8 H Lab Interpretation (test code = Abnormal 38115-9) [facility] HospitalVITAMIN D, [id number] 16:43:29 Test Item Value Reference Range Interpretation Comments VIT D 25OH (test code = <13 25-80 L 31577-9) SNOW (test code = SNOW) Deficiency: <20 ng/mLInsufficiency: 20-24 ng/mLOptimal: 25-80 ng/mL Lab Interpretation (test Abnormal code = 03528-1) [facility] HospitalPROCALCITONIN2021-06-21 16:15:30 Test Item Value Reference Range Interpretation Comments Procalcitonin (test 0.08 ng/mL <0.07 H code = 0115925133) SNOW (test code = SNOW) INTERPRETATION OF [...] lung abscess/empyema. For further information please refer to:[email or web address] Lab Interpretation Abnormal (test code = 56743-1) [facility] HospitalOSMOLALITY [id number] 15:35:14 Test Item Value Reference Range Interpretation Comments OSMO U (test code = See_Comment [Automa josemanuel message] 0761122137) The system whic h generated this result transmitted ref erence range: 50-1,100 mOsm/kg. The re ference range was not u sed to interpret this result as normal/abnor mal. Lab Interpretation (test Normal code = 04910-0) [facility] HospitalTROPONIN [id number] 14:04:56 Test Item Value Reference Range Interpretation Comments TROPONIN I (test 0.002 ng/mL See_Comment [Automated code = 6253921055) message] The system which generated this result [...] ? Lab Interpretation Normal (test code = 29732-5) [facility] HospitalCT ABDOMEN PELVIS W [id number] 13:37:17 1. ?Findings concerning for infectious or [...] reviewed this study and agree with theabove report.[facility] WITH [id number] 11:41:25 Test Item Value Reference Range Interpretation Comments WBC (test code = See_Comment L [Automated 4285-2) message] The system which generated this result transmit josemanuel reference range : 4.30 - 11.10 10*3/?L. The reference range was not used to interpret this result as normal/abnormal . RBC (test code = See_Comment L [Automated 099-8) message] The system which generated this result [...] (test code = 52.4 fL 39.0-49.9 H 60878-4) RDW-CV (test code = 18.2 % 12.0-15.5 H 788-0) PLT (test code = See_Comment LL [Automated 777-3) message] The system which generated this result transmit josemanuel reference range : 166 - 358 10*3/ ?L. The reference range was not u sed to interpret th is result as normal/abnormal . MPV (test code = Not Measure d 22709-7) IPF % (test code = 4.3 % 1.3-7.7 Platelet count 1444644132) measured by fluorescence method. NRBC/100 WBC (test See_Comment [Automat ed code = 2448867305) message] The system which generated this result transmit josemanuel reference range : 0.0 - 10.0 /100 WBCs. The reference range was not used to interpret this result as normal/abnormal . NRBC x10^3 (test code <0.01 See_Comment [Auto mated = 3432214693) message] The system which generated this result transmit josemanuel reference range : 10*3/?L. The reference range was not used to interpret this result as normal/abnormal . GRAN MAT (NEUT) % 74.4 % (test code = 770-8) IMM GRAN % (test code 0.50 % = 7502541481) LYMPH % (test code = 10.3 % 736-9) MONO % (test code = 12.3 % 5905-5) EOS % (test code = 2.0 % 713-8) BASO % (test code = 0.5 % 706-2) GRAN MAT x10^3(ANC) 3.02 10*3/uL 1.88-7.09 (test code = 2799876622) IMM GRAN x10^3 (test <0.03 0.00-0.06 code = 1025260105) LYMPH x10^3 (test 0.42 10*3/uL 1.32-3.29 L code = 731-0) MONO x10^3 (test code 0.50 10*3/uL 0.33-0.92 = 742-7) EOS x10^3 (test code 0.08 10*3/uL 0.03-0.39 = 711-2) BASO x10^3 (test code <0.03 0.01-0.07 = 704-7) PLT ESTIMATE (test Decreased Normal A code = 9317-9) SNOW (test code = SNOW) CBC smear reduced platelet Lab Interpretation Abnormal (test code = 11916-3) [facility] HospitalN-[facility]MINAL [id number] 11:07:24 Test Item Value Reference Range Interpretation Comments NT-proBNP (test code 79 pg/mL See_Comment [Autom ated = 0540383608) message] The system which generated this result transmitted reference range : <=125. The reference range was not used to interpret this result as normal/abnormal . SNOW (test code = SNOW) Biotin has been reported to cause a negative bias, interpret results relative to patient's use of biotin. Lab Interpretation Normal (test code = 72309-7) [facility] HospitalIRON [id number] 11:04:41 Test Item Value Reference Range Interpretation Comments IRON (test code = 6009759121) 31 ug/dL 50-160 L TIBC (test code = 0855839567) 295 ug/dL 250-410 % FE SAT (test code = 2544822561) 11 % 20-50 L Lab Interpretation (test code = Abnormal 26712-7) [facility] HospitalPROTEIN CREAT RATIO URINE [id number] 10:57:19 Test Item Value Reference Range Interpretation Comments T. PROT U (test code = 2888-6) 9 mg/dL CREAT U (test code = 6689982167) 187.5 mg/dL Protein/Creatinine Ratio Urine 0.0-2.0 (test code = 0354730794) [facility] HospitalSODIUM, URINE [id number] 10:53:21 Test Item Value Reference Range Interpretation Comments NA URINE (test code = 9560931038) 30 mmol/L [facility] HospitalSEDIMENTATION [id number] 10:33:04 Test Item Value Reference Range Interpretation Comments ESR (test code = See_Comment [Automated message] 2374566194) The system [employer] generated this result transmitted ref erence range: 0 - 20 m m/HR. The reference r davi was not used to interpret this result as normal/abnor mal. Lab Interpretation (test Normal code = 80171-6) [facility] HospitalPROTHROMBIN TIME / [id number] 09:43:39 Test Item Value Reference Range Interpretation Comments PROTIME PATIENT (test See_Comment H [Auto mated message] code = 5964-2) The system [employer] generated this result transmitted ref erence range: 12.0 - 1 4.7 Seconds. The reference range was not used to int erpret this result as normal/abnormal . INR (test code = 6301-6) Nor mal INR <1.1; Warfarin Therap eutic range 2.0 to 3. 0 or 2.5 to 3.5, dep ending upon the indica tions. Lab Interpretation (test Abnormal code = 79438-8) [facility] HospitalLactic Acid Whole [id number] 08:42:38 Test Item Value Reference Range Interpretation Comments LACTIC ACID (test code = 1.47 mmol/L 0.50-2.20 4604051856) Lab Interpretation (test code = Normal 33629-3) [facility] HospitalFERRITIN [id number] 07:31:09 Test Item Value Reference Range Interpretation Comments FERRITIN (test code = 12.2 ng/mL 11.0-264.0 1041121091) SNOW (test code = SNOW) Biotin has been reported to cause a negative bias, interpret results relative to patient's use of biotin. Lab Interpretation (test Normal code = 48833-5) [facility] HospitalTHYROID STIMULATING [id number] 07:27:08 Test Item Value Reference Range Interpretation Comments TSH (test code = See_Comment [Automated message] 8959425637) The system [employer] generated this result transmitted ref erence range: 0.45 - 4 .70 mIU/L. The refe rence range was not u sed to interpret this result as normal/abnor mal. Lab Interpretation (test Normal code = 65029-0) [facility] HospitalGLYCOSYLATED HEMOGLOBIN (A1C)2020-09-29 07:05:40 Test Item Value Reference Range Interpretation Comments HGB A1C (test code = 5.0 % 4.0-5.7 4548-4) SNOW (test code = SNOW) Reference RangesNormal: <5.7%Prediabetes: 5.7 - 6.4%Diabetes: > 6.5% Lab Interpretation (test Normal code = 26128-3) [facility] HospitalURIC [id number] 07:05:35 Test Item Value Reference Range Interpretation Comments URIC ACID (test code = 2378866327) 4.2 mg/dL 2.9-6.0 Lab Interpretation (test code = Normal 29772-5) [facility] HospitalCREATINE [id number] 07:05:30 Test Item Value Reference Range Interpretation Comments CK (test code = 1785527297) 192 U/L 33-194 Lab Interpretation (test code = Normal 40066-2) [facility] HospitalN-TERMINAL [id number] 07:05:30 Test Item Value Reference Range Interpretation Comments NT-proBNP (test code 94 pg/mL See_Comment [Autom ated = 6970346786) message] The system which generated this result transmitted reference range : <=125. The reference range was not used to interpret this result as normal/abnormal . SNOW (test code = SNOW) Biotin has been reported to cause a negative bias, interpret results relative to patient's use of biotin. Lab Interpretation Normal (test code = 21686-1) [facility] HospitalMAGNESIUM2021-06-21 07:04:24 Test Item Value Reference Range Interpretation Comments MAGNESIUM (test code = 3212493496) 1.8 mg/dL 1.7-2.4 Lab Interpretation (test code = Normal 02681-2) [facility] HospitalPHOSPHORUS2021-06-21 07:03:39 Test Item Value Reference Range Interpretation Comments PHOSPHORUS (test code = 8784563453) 2.2 mg/dL 2.5-5.0 L Lab Interpretation (test code = Abnormal 68426-7) [facility] HospitalLIPID PANEL (85054)(TOTAL CHOLESTEROL, TRIGLYCERIDES, HDL)2020-09-29 06:56:06 Test Item Value Reference Range Interpretation Comments CHOL (test code = 132 mg/dL 120-200 6124625013) HDL (test code = 41 mg/dL >50 L 8980108489) HDLC RATIO (test code = See_Comment [Au tomated message] 3460834717) The system [employer] generated this result transmit josemanuel reference range : <=4.5. The refe rence range was not u sed to interpret th is result as normal/abnormal . TRIG (test code = 73 mg/dL 30-170 8785354884) LDL CHOL (test code = 76 mg/dL See_Comment [Auto mated message] 50966-3) The system [employer] generated this result transmit josemanuel reference range : <=160. The refe rence range was not u sed to interpret th is result as normal/abnormal . VLDL (test code = 15 mg/dL 5-60 4930726646) Lab Interpretation (test Abnormal code = 29725-1) [facility] HospitalCOVID-19 (ID NOW RAPID TESTING)2020-09-29 06:24:26 Test Item Value Reference Range Interpretation Comments SARS-CoV-2 Rapid ID NOW Not Detected Not Detected (test code = 83539-5) SNOW (test code = SNOW) ID NOW COVID-19 Assay is an isothermal nucleic acid amplification test intended for the qualitative detection of nucleic acid from SARS-CoV-2 viral RNA in nasopharyngeal ([place]) specimens. It is used under Emergency Use [...] indicated. Lab Interpretation Normal (test code = 53818-6) [facility] HospitalURINALYSIS2021-06-21 04:43:31 Test Item Value Reference Range Interpretation Comments APPEARANCE (test code = Clear Clear 9129623957) COLOR (test code = Rosanne Yellow A 3022031622) PH (test code = 4.8-8.0 4011478336) SP GRAVITY (test code = 1.003-1.030 9522887369) GLU U QUAL (test code = Normal Normal 4364770180) BLOOD (test code = Negative Negative 2346020753) KETONES (test code = Negative Negative 1897007412) PROTEIN (test code = 30 mg/dL Negative A 2887-8) UROBILIN (test code = Normal Normal 3746801885) BILIRUBIN (test code = Negative Negative 8834278701) NITRITE (test code = Negative Negative 8118845784) LEUK RANULFO (test code = 25/uL Negative A 0362344757) RBC/HPF (test code = See_Comment [Autom ated message] 4086725394) The system [employer] generated this result transmitted ref erence range: 0 - 3 HP F. The reference range was not used to int erpret this result as normal/abnormal . WBC/HPF (test code = See_Comment [Autom ated message] 4243760358) The system [employer] generated this result transmitted ref erence range: 0 - 5 HP F. The reference range was not used to int erpret this result as normal/abnormal . BACTERIA (test code = Few Negative A 7474128324) MUCOUS (test code = Moderate Negative LPF A 0179014052) SQ EPITH (test code = HPF 5803333479) Lab Interpretation (test Abnormal code = 65253-3) [facility] WITH [id number] 04:39:35 Test Item Value Reference Range Interpretation Comments WBC (test code = See_Comment [Automated 6290-2) message] The system which generated this result transmit josemanuel reference range : 4.30 - 11.10 10*3/?L. The reference range was not used to interpret this result as normal/abnormal . RBC (test code = See_Comment L [Automated 559-8) message] The system which generated this result [...] (test code = 51.3 fL 39.0-49.9 H 77072-8) RDW-CV (test code = 18.1 % 12.0-15.5 H 788-0) PLT (test code = See_Comment L [Automated 777-3) message] The system which generated this result transmit josemanuel reference range : 166 - 358 10*3/ ?L. The reference range was not u sed to interpret th is result as normal/abnormal . MPV (test code = 11.1 fL 9.5-12.9 82082-7) IPF % (test code = 3.7 % 1.3-7.7 Platelet count 0925133257) measured by fluorescence method. NRBC/100 WBC (test See_Comment [Automat ed code = 3370290778) message] The system which generated this result transmit josemanuel reference range : 0.0 - 10.0 /100 WBCs. The reference range was not used to interpret this result as normal/abnormal . NRBC x10^3 (test code <0.01 See_Comment [Auto mated = 0412958957) message] The system which generated this result transmit josemanuel reference range : 10*3/?L. The reference range was not used to interpret this result as normal/abnormal . GRAN MAT (NEUT) % 76.4 % (test code = 770-8) IMM GRAN % (test code 0.80 % = 3237687639) LYMPH % (test code = 9.4 % 736-9) MONO % (test code = 11.3 % 5905-5) EOS % (test code = 1.5 % 713-8) BASO % (test code = 0.6 % 706-2) GRAN MAT x10^3(ANC) 4.07 10*3/uL 1.88-7.09 (test code = 6985516815) IMM GRAN x10^3 (test 0.04 10*3/uL 0.00-0.06 code = 1402411185) LYMPH x10^3 (test 0.50 10*3/uL 1.32-3.29 L code = 731-0) MONO x10^3 (test code 0.60 10*3/uL 0.33-0.92 = 742-7) EOS x10^3 (test code 0.08 10*3/uL 0.03-0.39 = 711-2) BASO x10^3 (test code 0.03 10*3/uL 0.01-0.07 = 704-7) PLT ESTIMATE (test Decreased Normal A code = 9317-9) SNOW (test code = SNOW) Juan slide adgrees to decreased Platelet Lab Interpretation Abnormal (test code = 82189-9) [facility]. METABOLIC PANEL (29894)2020-09-29 04:25:42 Test Item Value Reference Range Interpretation Comments NA (test code = 134 mmol/L 135-145 L 4111883772) K (test code = 3.2 mmol/L 3.5-5.0 L 9144714556) CL (test code = 104 mmol/L 98-108 1634252285) CO2 TOTAL (test code = 24 mmol/L 23-31 0450107777) AGAP (test code = 2-16 1228474790) BUN (test code = 8 mg/dL 7-23 0427371574) GLUCOSE (test code = 105 mg/dL 70-110 7860568412) CREATININE (test code = 0.51 mg/dL 0.50-1.04 8680621360) TOTAL BILI (test code = 2.5 mg/dL 0.1-1.1 H 4263338175) CALCIUM (test code = 8.2 mg/dL 8.6-10.6 L 8551203169) T PROTEIN (test code = 6.3 g/dL 6.3-8.2 5544654913) ALBUMIN (test code = 3.1 g/dL 3.5-5.0 L 0987155865) ALK PHOS (test code = 136 U/L 34-122 H 7397048548) ALTv (test code = 24 U/L 5-35 1742-6) AST(SGOT) (test code = 30 U/L 13-40 6572444378) eGFR (test code = mL/min/1.73m2 7932378465) SNOW (test code = SNOW) Association of [...] tests). 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 (test code = 98259-3) Whether the patient has symptoms related to condition of interest (test code = 67898-0) Patient was hospitalized because of this condition (test code = 89681-0) Whether the patient was admitted to intensive care unit (ICU) for condition of interest (test code = 45252-1) Whether patient resides in a congregate care setting (test code = 66555-0) SARS-CoV-2 (COVID-19) RNA [Presence] in Respiratory specimen by HELENA with probe [id number] 02:47:43 Test Item Value Reference Range Interpretation Comments SARS-CoV-2 (COVID-19) RNA Not detected Not-Detected [Presence] in Respiratory specimen by HELENA with probe detection (test code = 84023-1) SARS-CoV-2 (COVID-19) RNA [Presence] in Respiratory specimen by HELENA with probe [id number] 16:32:37 Test Item Value Reference Range Interpretation Comments SARS-CoV-2 (COVID-19) RNA Not detected Not-Detected [Presence] in Respiratory specimen by HELENA with probe detection (test code = 31840-4) SARS-CoV-2 (COVID-19) RNA [Presence] in Respiratory specimen by HELENA with probe [id number] 05:29:57 Test Item Value Reference Range Interpretation Comments SARS-CoV-2 (COVID-19) RNA Not detected Not-Detected [Presence] in Respiratory specimen by HELENA with probe detection (test code = 44446-9) CT ABDOMEN PELVIS W [id number] 19:27:49 1. ?No evidence of small bowel [...] reviewed this study and agree with the abovereport.[facility] WITH [id number] 11:56:00 Test Item Value Reference Range Interpretation [...] (test code = 58.0 fL 39-49.9 H 39029-7) RDW-CV (test code = 16.6 % 12-15.5 H 788-0) PLT (test code = See_Comment LL [Automated 777-3) message] The sy stem which generated this result transmitted reference range : 166 - 358 10*3/ ?L. The reference r davi was not used to interpret this result as normal/abnormal . MPV (test code = 11.0 fL 9.5-12.9 68327-0) IPF % (test code = 5.5 % 1.3-7.7 Platelet count 9263881253) measured by fluorescence method. NRBC/100 WBC (test See_Comment [Automat ed code = 4174640385) message] The system which generated this result transmitted reference range : 0.0 - 10.0 /100 WBCs. The refer ence range was not u sed to interpret th is result as normal/abnormal . NRBC x10^3 (test code <0.01 See_Comment [Auto mated = 8788265322) message] The s ystem which generated this result transmitted reference range : 10*3/?L. The reference range was not used to interpret this result as normal/abnormal . GRAN MAT (NEUT) % 57.6 % (test code = 770-8) IMM GRAN % (test code 0.00 % = 4044203963) LYMPH % (test code = 27.1 % 736-9) MONO % (test code = 11.8 % 5905-5) EOS % (test code = 3.1 % 713-8) BASO % (test code = 0.4 % 706-2) GRAN MAT x10^3(ANC) 1.47 10*3/uL 1.88-7.09 L (test code = 5165837948) IMM GRAN x10^3 (test <0.03 0-0.06 code = 1628964874) LYMPH x10^3 (test code 0.69 10*3/uL 1.32-3.29 L = 731-0) MONO x10^3 (test code 0.30 10*3/uL 0.33-0.92 L = 742-7) EOS x10^3 (test code = 0.08 10*3/uL 0.03-0.39 711-2) BASO x10^3 (test code <0.03 0.01-0.07 = 704-7) Lab Interpretation Abnormal (test code = 41195-6) [facility]COMP. METABOLIC PANEL (31298)2019-08-11 10:42:00 Test Item Value Reference Range Interpretation Comments NA (test code = 138 mmol/L 135-145 0164267863) K (test code = 3.8 mmol/L 3.5-5 0311043141) CL (test code = 108 mmol/L 98-108 7150917326) CO2 TOTAL (test code = 24 mmol/L 23-31 3621868371) AGAP (test code = 2-16 2563809139) BUN (test code = 10 mg/dL 7-23 0453459886) GLUCOSE (test code = 108 mg/dL 70-110 6779529905) CREATININE (test code = 0.43 mg/dL 0.5-1.04 L 7669132822) TOTAL BILI (test code = 2.5 mg/dL 0.1-1.1 H 2600683530) CALCIUM (test code = 8.4 mg/dL 8.6-10.6 L 1658960368) T PROTEIN (test code = 6.1 g/dL 6.3-8.2 L 7320091121) ALBUMIN (test code = 3.1 g/dL 3.5-5 L 2832391109) ALK PHOS (test code = 102 U/L 34-122 3893645968) ALTv (test code = 52 U/L 5-35 H 1742-6) AST(SGOT) (test code = 63 U/L 13-40 H 1399350734) eGFR Calculation mL/min/1.73m2 (Non-) (test code = 2094512234) eGFR Calculation mL/min/1.73m2 () (test code = 8788128716) SNOW (test code = SNOW) Association of [...] tests). Lab Interpretation Abnormal (test code = 43617-2) [facility] HospitalXR SMALL BOWEL [id number] 02:08:11 1. ?No bowel obstruction. No fluoroscopic images or fluoroscopic time. RL 6200 HISTORY: ?Abdominal pain COMPARISON: ?None FINDINGS: There is a nonobstructive bowel gas pattern. Contrast is seen throughoutthe entire small bowel and colon. Nodilated loops of bowel demonstrated. [facility] Inft User - 08/10/2019 9:09 PM CDTHISTORY: Abdominal painCOMPARISON: NoneFINDINGS:There is a nonobstructive bowel gas pattern. Contrast is seen throughoutthe entire small bowel and colon. No dilated loops of bowel demonstrated.IMPRESSION1.No bowel obstruction.No fluoroscopic images or fluoroscopic time.RL 6200 [facility]Nav[facility] HospitalSEDIMENTATION [id number] 16:19:00 Test Item Value Reference Range Interpretation Comments ESR (test code = See_Comment [Automated message] [id number]) The system [employer] generated this result transmitted ref erence range: 0 - 20 m m/HR. The reference r davi was not used to interpret this result as normal/abnor mal. Lab Interpretation (test Normal code = 79314-3) [facility] - To confirm nasogastric [...] system. No acute bony abnormalities are noted. [facility] Inft User - 08/10/2019 10:25 [...] reviewed this study and agree with the abovereport.[facility] WITH [id number] 13:48:00 Test Item Value Reference Range Interpretation [...] (test code = 58.4 fL 39-49.9 H 52340-7) RDW-CV (test code = 16.7 % 12-15.5 H 788-0) PLT (test code = See_Comment LL [Automated 777-3) message] The system which generated this result transmit josemanuel reference range : 166 - 358 10*3/ ?L. The reference range was not u sed to interpret th is result as normal/abnormal . MPV (test code = 10.5 fL 9.5-12.9 26403-7) IPF % (test code = 3.0 % 1.3-7.7 Platelet count 3359337396) measured by fluorescence method. NRBC/100 WBC (test See_Comment [Automat ed code = 5985230636) message] The system which generated this result transmit josemanuel reference range : 0.0 - 10.0 /100 WBCs. The reference range was not used to interpret this result as normal/abnormal . NRBC x10^3 (test code <0.01 See_Comment [Auto mated = 7270223971) message] The system which generated this result transmit josemanuel reference range : 10*3/?L. The reference range was not used to interpret this result as normal/abnormal . GRAN MAT (NEUT) % 57.1 % (test code = 770-8) IMM GRAN % (test code 0.40 % = 6421822135) LYMPH % (test code = 28.1 % 736-9) MONO % (test code = 10.4 % 5905-5) EOS % (test code = 3.6 % 713-8) BASO % (test code = 0.4 % 706-2) GRAN MAT x10^3(ANC) 1.42 10*3/uL 1.88-7.09 L (test code = 7982193559) IMM GRAN x10^3 (test <0.03 0-0.06 code = 1329016270) LYMPH x10^3 (test 0.70 10*3/uL 1.32-3.29 L code = 731-0) MONO x10^3 (test code 0.26 10*3/uL 0.33-0.92 L = 742-7) EOS x10^3 (test code 0.09 10*3/uL 0.03-0.39 = 711-2) BASO x10^3 (test code <0.03 0.01-0.07 = 704-7) PLT ESTIMATE (test Critically Normal AA code = 9317-9) Decreased Lab Interpretation Abnormal (test code = 14018-9) [facility] (A1C)2019-08-10 13:13:00 Test Item Value [...] Indicated Lab Interpretation Normal (test code = 24673-6) [facility] STIMULATING [id number] 13:05:00 Test Item Value Reference Range Interpretation Comments TSH (test code = See_Comment [Automated message] 9898849116) The system [employer] generated this result transmitted ref erence range: 0.45 - 4 .70 mIU/L. The refe rence range was not u sed to interpret this result as normal/abnor mal. Lab Interpretation (test Normal code = 96191-4) [facility], [id number] 13:04:00 Test Item Value Reference Range Interpretation Comments PREG SERUM (test code Negative = 6828955552) SNOW (test code = SNOW) Less than 10 IU/L. ?If low titer or ectopic is suspected, resubmit specimen in 48-72 hours. [facility] HospitalLIP[facility] PANEL (41010)(TOTAL CHOLESTEROL, TRIGLYCERIDES, HDL)2019-08-10 12:36:00 Test Item Value Reference Range Interpretation Comments CHOL (test code = 158 mg/dL 120-200 7995976581) HDL (test code = 47 mg/dL >50 L 9344512177) HDLC RATIO (test code = See_Comment [Au tomated message] 1699533815) The system [employer] generated this result transmit josemanuel reference range : <=4.5. The refe rence range was not u sed to interpret th is result as normal/abnormal . TRIG (test code = 51 mg/dL 30-170 4480386621) LDL CHOL (test code = 101 mg/dL See_Comment [Auto mated message] 98478-2) The system [employer] generated this result transmit josemanuel reference range : <=160. The refe rence range was not u sed to interpret th is result as normal/abnormal . VLDL (test code = 10 mg/dL 5-60 8074789533) Lab Interpretation (test Abnormal code = 23522-7) [facility]COMP. METABOLIC PANEL (31463)2019-08-10 12:35:00 Test Item Value Reference Range Interpretation Comments NA (test code = 139 mmol/L 135-145 3917294948) K (test code = 3.9 mmol/L 3.5-5 7519886029) CL (test code = 109 mmol/L 98-108 H 5298840983) CO2 TOTAL (test code = 25 mmol/L 23-31 8804651912) AGAP (test code = 2-16 3643681814) BUN (test code = 15 mg/dL 7-23 6492048433) GLUCOSE (test code = 218 mg/dL 70-110 H 4519947232) CREATININE (test code = 0.40 mg/dL 0.5-1.04 L 6594684542) TOTAL BILI (test code = 2.0 mg/dL 0.1-1.1 H 9289496891) CALCIUM (test code = 8.5 mg/dL 8.6-10.6 L 0979106677) T PROTEIN (test code = 6.2 g/dL 6.3-8.2 L 1615430616) ALBUMIN (test code = 3.1 g/dL 3.5-5 L 2187166414) ALK PHOS (test code = 99 U/L 34-122 0693034108) ALTv (test code = 42 U/L 5-35 H 1742-6) AST(SGOT) (test code = 49 U/L 13-40 H 0919334105) eGFR Calculation mL/min/1.73m2 (Non-) (test code = 8794721559) eGFR Calculation mL/min/1.73m2 () (test code = 3337221856) SNOW (test code = SNOW) Association of [...] tests). Lab Interpretation Abnormal (test code = 03675-3) [facility]2020-[facility]-01 12:35:00 Test Item Value Reference Range Interpretation Comments MAGNESIUM (test code = 4521250985) 1.6 mg/dL 1.7-2.4 L Lab Interpretation (test code = Abnormal 25238-6) [facility]OSPHORUS2020-[facility]-01 12:35:00 Test Item Value Reference Range Interpretation Comments PHOSPHORUS (test code = 3739963600) 3.6 mg/dL 2.5-5 Lab Interpretation (test code = Normal 02607-1) [facility]CREATINE [id number] 12:35:00 Test Item Value Reference Range Interpretation Comments CK (test code = 0644697604) 123 U/L 33-194 Lab Interpretation (test code = Normal 20182-8) [facility]LIPASE2020-05-01 12:35:00 Test Item Value Reference Range Interpretation Comments LIPASE (test code = 3860967038) 141 U/L 0-220 Lab Interpretation (test code = Normal 03471-4) [facility]AMYLASE2020-05-01 12:34:00 Test Item Value Reference Range Interpretation Comments LIN (test code = 9064940053) 73 U/L 35-110 Lab Interpretation (test code = Normal 86476-1) [facility] HospitalPROTHROMBIN TIME / [id number] 12:07:00 Test Item Value Reference Range Interpretation Comments PROTIME PATIENT (test See_Comment H [Auto mated message] code = 5964-2) The system [employer] generated this result transmitted ref erence range: 12.0 - 1 4.7 Seconds. The reference range was not used to int erpret this result as normal/abnormal . INR (test code = 6301-6) Nor mal INR <1.1; Warfarin Therap eutic range 2.0 to 3. 0 or 2.5 to 3.5, dep ending upon the indica tions. Lab Interpretation (test Abnormal code = 64761-1) [facility] HospitalCORONAVIRUS COVID-19 [id number] 10:18:00 Test Item Value Reference Range Interpretation Comments SARS-CoV-2 (test code = Not Detected Not Detected 32810-3) SNOW (test code = SNOW) ID NOW COVID-19 Assay is an isothermal nucleic acid amplification test intended for the qualitative detection of nucleic acid from SARS-CoV-2 viral RNA in nasopharyngeal ([place]) specimens. It is used under Emergency Use [...] indicated. Lab Interpretation Normal (test code = 45584-4) [facility]RAD, CHEST, 1 VIEW, NON [id number] 07:50:00Reason for exam:->SOBShould this be performed at the bedside?->Yes FINAL REPORT CLINICAL HISTORY: SOB TECHNIQUE: 1 view of the chest. COMPARISON: None IMPRESSION: There is pulmonary vascular congestion with prominent lung markings bilaterally. Subpulmonic pleural effusions cannot be excluded. The cardiomediastinal silhouette is magnified by technique. Signed: Franky Louis [facility] Center[facility] Verified Date/Time: 10/03/2018 07:50:47 Reading Location: [facility] Radiology Reading Room [id number] 07:37:00 Test Item Value Reference Range Interpretation Comments MAGNESIUM (BEAKER) (test code = 1.6 mg/dL 1.6-2.6 627) BASIC METABOLIC [id number] 07:37:00 Test Item Value Reference Range Interpretation [...] DIALYSIS PATIEN TS. Specimen slightly ictericHEPATIC FUNCTION [id number] 07:37:00 Test Item Value Reference Range Interpretation [...] 35 U/L 6-55 347) Specimen slightly ictericPROTHROMBIN TIME/[id number] 06:25:00 Test Item Value Reference Range Interpretation [...] mechanical heart valves.CBC W/PLT COUNT & AUTO [id number] 06:16:00 Test Item Value Reference Range Interpretation [...] = 3438) Received comment: User comments: Slide comments:[id number] 05:58:00 Test Item Value Reference Range Interpretation Comments MAGNESIUM (BEAKER) (test code = 1.6 mg/dL 1.6-2.6 627) BASIC METABOLIC [id number] 05:58:00 Test Item Value Reference Range Interpretation [...] DIALYSIS PATIEN TS. Specimen slightly ictericHEPATIC FUNCTION [id number] 05:58:00 Test Item Value Reference Range Interpretation [...] 39 U/L 6-55 347) Specimen slightly ictericPROTHROMBIN TIME/[id number] 05:26:00 Test Item Value Reference Range Interpretation [...] mechanical heart valves.CBC W/PLT COUNT & AUTO [id number] 05:20:00 Test Item Value Reference Range Interpretation [...] WBC 0-0 (test code = 413) VITAMIN [id number] 06:57:00 Test Item Value Reference Range Interpretation Comments VITAMIN B12 (BEAKER) (test code = 178 pg/mL 213-816 L 774) [id number] 06:57:00 Test Item Value Reference Range Interpretation Comments FERRITIN (BEAKER) (test code = 361) 21 ng/mL 5-275 FOLATE, [id number] 06:57:00 Test Item Value Reference Range Interpretation [...] 28 % 20-55 (test code = 2590) [id number] 05:59:00 Test Item Value Reference Range Interpretation Comments MAGNESIUM (BEAKER) (test code = 1.7 mg/dL 1.6-2.6 627) BASIC METABOLIC [id number] 05:59:00 Test Item Value Reference Range Interpretation [...] FOR DIALYSIS PATIEN TS. Specimen slightly ictericLIPID [id number] 05:59:00 Test Item Value Reference Range Interpretation [...] Very High >=190 Specimen slightly ictericHEPATIC FUNCTION [id number] 05:59:00 Test Item Value Reference Range Interpretation [...] = 41 U/L 6-55 347) Specimen slightly [id number] 05:59:00 Test Item Value Reference Range Interpretation Comments LIPASE (BEAKER) (test code = 749) 35 U/L 8-78 Specimen slightly ictericPROTHROMBIN TIME/[id number] 05:58:00 Test Item Value Reference Range Interpretation [...] mechanical heart valves.CBC W/PLT COUNT & AUTO [id number] 05:37:00 Test Item Value Reference Range Interpretation [...] PERCENT (BEAKER) (test code = 2801) POCT-HEMOGLOBIN [id number] 06:12:00 Test Item Value Reference Range Interpretation Comments POC-HEMOGLOBIN METER 8.6 g/dL 12.0-15.0 L TESTED AT [facility] ([facility]) (test code = [place] [address] 1539)"
[2021-09-14] MEDS ORDERED: ONDANSETRON 4 MG (ODT) TAB ONE (03:50)
[2021-09-14] MEDS ORDERED: HYDROCODONE/APAP 5/325 MG TAB ONE (03:51)
--- NOTE | 2021-09-14 05:36 | ER ---
Nurse's Notes [facility] Name: Zenaida Goss Age: 61 yrs Sex: Female : 1960 Arrival Date: 09/14/2021 Time: 03:08 Bed 4 Private MD: Diagnosis: Pain in right knee;Osteoarthritis of knee, unspecified;Fall on same level, unspecified Presentation: 09/14 03:31 Chief complaint: Patient states: I had right knee surgery a month ago, fell 2 weeks ke1 post surgery on the same right knee and it has been hurting since then. Coronavirus screen: Vaccine status: Patient reports receiving the 2nd dose of the covid vaccine. Ebola Screen: No symptoms or risks identified at this time. Initial Sepsis Screen: Does the patient meet any 2 criteria? No. Patient's initial sepsis screen is negative. Does the patient have a suspected source of infection? No. Patient's initial sepsis screen is negative. Risk Assessment: Do you want to hurt yourself or someone else? Patient reports no desire to harm self or others. 03:31 Method Of Arrival: Wheelchair ke 03:31 Acuity: TANK 3 ke1 03:38 Onset of symptoms was August 28, 2021. ke1 Triage Assessment: 03:40 General: Appears uncomfortable, Behavior is appropriate for age. Pain: Complains of ke1 pain in right knee. Neuro: Level of Consciousness is awake, alert, Oriented to person, place, time, situation. Historical: - Allergies: 03:38 Dilaudid; ke1 03:38 Morphine (Anaphylaxis); ke1 - PMHx: 03:38 Anemia; breast cancer; Cirrhosis; fatty liver; Pancreatitis; varices; ke1 - PSHx: 03:38 Appendectomy; Cholecystectomy; Lumpectomy of breast; Total abdominal hysterectomy; ke1 - Immunization history:: Client reports receiving the 2nd dose of the Covid vaccine. - Social history:: Smoking status: Patient denies any tobacco usage or history of. Screenin:39 Abuse screen: Denies threats or abuse. Nutritional screening: No deficits noted. ke1 Tuberculosis screening: No symptoms or risk factors identified. Fall Risk Fall in past 12 months (25 points). Secondary diagnosis (15 points) No IV (0 pts). Ambulatory Aid- None/Bed Rest/Nurse Assist (0 pts). Gait- Impaired (20 pts.). Mental Status- Oriented to own ability (0 pts). Total Adames Fall Scale indicates High Risk Score (45 or more points). Side Rails Up X 2 Frequent Obs/Assessments Occuring As available patient and family educated on Fall Prevention Program and Strategies. Vital Signs: 03:31 BP 113 / 53; Resp 18; Temp 98.2; Pulse Ox 100% ; Weight 120.2 kg; Height 5 ft. 4 in. ke1 (162.56 cm); Pain 10/10; 03:31 Body Mass Index 45.49 (120.20 kg, 162.56 cm) ke1 ED Course: 03:08 Patient arrived in ED. ja2 03:18 Grant Baldwin DO is Attending Physician. ms3 03:21 Carmen Alvares, ERIC is Primary Nurse. ke1 03:38 Triage completed. ke1 03:41 Arm band placed on. ke1 03:41 Call light in reach. Side rails up X 1. Side rails up X2. ke1 04:02 Knee Right Wo Cont In Process Unspecified. EDMS 05:34 Gm Singh MD is Referral Physician. ms3 06:26 No provider procedures requiring assistance completed. Patient did not have IV access ke1 during this emergency room visit. Administered Medications: 03:47 Drug: HYDROcodone-acetaminophen 5 mg-325 mg 1 tabs Route: PO; ke1 03:47 Drug: Zofran (Ondansetron) 4 mg Route: PO; ke1 Medication: 06:27 VIS not applicable for this client. ke1 Outcome: 05:35 Discharge ordered by . ms3 06:26 Discharged to home ambulatory. ke1 06:26 Condition: good 06:26 Discharge instructions given to patient. 06:37 Patient left the ED. ke1 Signatures: Dispatcher [employer] EDMS Grant Baldwin DO DO ms3 [place] ja2 Carmen Alvares RN RN ke1
--- NOTE | 2021-09-14 05:36 | EDPHYS ---
Physician Documentation [facility] Name: Zenaida Goss Age: 61 yrs Sex: Female : 1960 Arrival Date: 09/14/2021 Time: 03:08 Bed 4 Private MD: ED Physician Grant Baldwin HPI: 09/14 06:37 This 61 yrs old Female presents to ER via Wheelchair with complaints of Knee ms3 Pain. 06:37 The patient presents with pain, that is acute. The complaints affect the right knee. ms3 Context: resulted from the patient falling. Onset: The symptoms/episode began/occurred 2 week(s) ago. Modifying factors: The symptoms are alleviated by nothing. the symptoms are aggravated by nothing. Associated signs and symptoms: The patient has no apparent associated signs or symptoms. Treatment prior to arrival includes: no previous treatment. Severity of symptoms: At their worst the symptoms were moderate, in the emergency department the symptoms are unchanged. Historical: - Allergies: 03:38 Dilaudid; ke1 03:38 Morphine (Anaphylaxis); ke1 - PMHx: 03:38 Anemia; breast cancer; Cirrhosis; fatty liver; Pancreatitis; varices; ke1 - PSHx: 03:38 Appendectomy; Cholecystectomy; Lumpectomy of breast; Total abdominal hysterectomy; ke1 - Immunization history:: Client reports receiving the 2nd dose of the Covid vaccine. - Social history:: Smoking status: Patient denies any tobacco usage or history of. ROS: 06:37 Constitutional: Negative for fever, and chills. ENT: Negative for injury, pain, and ms3 discharge, Neck: Negative for injury, pain, and swelling, Cardiovascular: Negative for chest pain, and palpitations. Respiratory: Negative for shortness of breath, cough, wheezing, and pleuritic chest pain, Abdomen/GI: Negative for abdominal pain, nausea, vomiting, diarrhea, and constipation, Skin: Negative for injury, rash, and discoloration. Vital Signs: 03:31 BP 113 / 53; Resp 18; Temp 98.2; Pulse Ox 100% ; Weight 120.2 kg; Height 5 ft. 4 in. ke1 (162.56 cm); Pain 10/10; 03:31 Body Mass Index 45.49 (120.20 kg, 162.56 cm) ke1 MDM: 03:29 Patient medically screened. ms3 06:37 ED course: Unable to view MEDICAL DIR aware hx as site blocked from viewing from hospital ms3 computer.. 09/14 03:39 Order name: Knee Right Wo Cont EDMS Administered Medications: 03:47 Drug: HYDROcodone-acetaminophen 5 mg-325 mg 1 tabs Route: PO; ke1 03:47 Drug: Zofran (Ondansetron) 4 mg Route: PO; ke1 Disposition Summary: 09/14/21 05:35 Discharge Ordered Location: Home ms3 Condition: Stable ms3 Diagnosis - Pain in right knee ms3 - Osteoarthritis of knee, unspecified ms3 - Fall on same level, unspecified ms3 Followup: ms3 - With: Gm Singh MD - When: 2 - 3 days - Reason: Re-evaluation by your physician Discharge Instructions: - Discharge Summary Sheet ms3 - Joint Pain ms3 - Acute Knee Pain, Adult ms3 Forms: - Medication Reconciliation Form ms3 - Thank You Letter ms3 - Antibiotic Education ms3 - Prescription Opioid Use ms3 Prescriptions: - Tylenol-Codeine #3 300 mg-30 mg Oral - take 1 tablet by ORAL route every 8 hours; 9 tablet; Refills: 0, Product ms3 Selection Permitted Signatures: Dispatcher [employer] EDMS Grant Baldwin DO DO ms3 Carmen Alvares, RN RN ke1
[2021-09-14 06:47] VITALS: BP 113/53; TEMP 98.2; O2SAT 100
--- NOTE | 2021-09-15 13:28 | RAD REPORT ---
EXAM DESCRIPTION: Knee Right 3 View CLINICAL HISTORY: PAIN COMPARISON: None. FINDINGS: 3 views of the right knee. No acute fracture or dislocation. Osteopenia. No definite joint effusion. IMPRESSION: 1. No acute fracture or dislocation. Electronically signed by: Jeyson Sánchez 08/31/2021 1:22 AM CDT Due to temporary technical issues with the PACS/Fluency reporting system, reports are being signed by the in house radiologists without review as a courtesy to insure prompt reporting. The interpreting radiologist is fully responsible for the content of the report.
== END 2021-09-14 06:37 | disposition home or self-care (01) ==
LOC: ER 03:02
DX: M17.11 Unilateral primary osteoarthritis, right knee (principal); W18.30XA Fall on same level, unspecified, initial encounter; Z85.3 Personal history of malignant neoplasm of breast; Z88.5 Allergy status to narcotic agent
CPT/HCPCS: 73700; 99283

== ENCOUNTER 2021-09-24 17:01 | Emergency (ER) | payer OTHER ==
--- OUTSIDE RECORDS SUMMARY | 2021-09-24 17:08 | XMS REPORT | Continuity of Care Document ---
:1960 Author Organization [facility] t Address [address] [place] [address] Dr. [address]. [address] [place] [address] Care Team Providers Name Role Phone Sami HERNANDEZ Primary Care Physician Unavailable Ruth Attending Clinician Unavailable Harley Attending Clinician Unavailable [facility] Attending Clinician Unavailable José Manuel GREEN Attending Clinician Unavailable Beatriz REAL ESTATE INTERN, F Attending Clinician Nancy REYES Attending Clinician [...] Unavailable JAIME Admitting Clinician Unavailable MD CECE SANDVOAL Admitting Clinician Unavailable MANUELITO Admitting Clinician Unavailable MD MANUELITO Admitting Clinician Unavailable MILLIE Admitting Clinician Unavailable SHAYY DAVEY Admitting Clinician Unavailable JUDIT ESCALONA Admitting Clinician Unavailable Payers Payer Name Policy Type Policy Number Effective Date Expiration Date Deshawn blancas [facility] [id number] 2019 CHOICE 00:00:00 Problems Condition Condition Condition [...] of - [facility]I right knee right knee [facility] Primary Primary Diagnosis Active 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 of itis of - [facility]I left knee left knee [facility] Allergies, Adverse Reactions, Alerts Allergy Allergy [...] Not Commo n Reaction Available Spir t [facility] Social History Social Habit Start Date Stop Date Quantity Comments Source Exposure to Not sure [facility] SARS-CoV-2 [facility] (event) Branch Alcohol intake 2021-04-02 2021-04-02 Ex-drinker [facility] 00:00:00 00:00:00 (finding) [facility] Tobacco use and 2016-08-07 2016-08-07 Never used Universit y of exposure 00:00:00 00:00:00 [facility] Sex [birth year] At [birth year] Universit y of 00:00:00 00:00:00 [facility] Smoking Status Start Date Stop Date Source Never smoker [facility] Medications Ordered Filled Start Stop [...] 04/02/21 at 1445, VERN ondansetron 2020-04 Yes [id number] 4mg Take 1 Univers 4 mg 2-23 tablet by ity of disintegrat 00:00: mouth [place] ing tablet 00 every 8 Medica l (eight) Branch hours as needed for Nausea and Vomiting (N/V). ondansetron 2020-04 Yes [id number] 4mg Take 1 Univers 4 mg 2-23 tablet by ity of disintegrat 00:00: mouth [place] ing tablet 00 every 8 Medica l (eight) Branch hours as needed for Nausea and Vomiting (N/V). cholecalcif 2020- No [id number] 1999U Take 2 Univers nuno, 6-26 07-27 tablets by ity of vitamin D3, 00:00: 04:59 [place] 25 m[place] 00 :00 daily for Medical (1,000 30 days. Branch unit) tablet cyanocobala 2020- No [id number] 1000ug inject 1 Univers min 1,000 6-26 07-27 mL under ity o f mcg/mL 00:00: 04:59 the skin [place] injection 00 :00 every 24 Medica l (twenty-fo Branch ur) hours for 30 days. KCL 20 mEq 2020- No [id number] 20meq Take 1 Univers tablet 6-26 07-27 tablet by ity of 00:00: 04:59 mouth [place] 00 :00 daily for Medical 30 days. Branch cholecalcif 2020- No [id number] 1999U Take 2 Univers nuno, 6-26 07-27 tablets by ity of vitamin D3, 00:00: 04:59 [place] 25 mcg 00 :00 daily for Medical (1,000 30 days. Branch unit) tablet cyanocobala 2020- No [id number] 1000ug inject 1 Univers min 1,000 6-26 07-27 mL under ity o f mcg/mL 00:00: 04:59 the skin [place] injection 00 :00 every 24 Medica l (twenty-fo Branch ur) hours for 30 days. KCL 20 mEq 2020- No [id number] 20meq Take 1 Univers tablet 6- 07-27 [...] ity o f mL oral 13:10: daily. [place] solution 25 Medical Branch [...] unresponsi ve to Ondansetro n proMETHazin Yes [id number] 12.5mg Take 1 Univers e 12.5 mg 6-25 tablet by ity o f tablet 00:00: mouth [place] 00 every 6 Medical (six) Branch hours as needed for Nausea and Vomiting (N/V) or N/V unresponsi ve to Ondansetro n. proMETHazin Yes [id number] 12.5mg Take 1 Univers e 12.5 mg 6-25 tablet by ity o f tablet 00:00: mouth [place] 00 every 6 Medical (six) Branch hours as needed for Nausea and Vomiting (N/V) or N/V unresponsi ve to Ondansetro n. proMETHazin Yes [id number] 12.5mg Take 1 Univers e 12.5 mg 6-25 tablet by ity o f tablet 00:00: mouth [place] 00 every 6 Medical (six) Branch hours as needed for Nausea and Vomiting (N/V) or N/V unresponsi ve to Ondansetro n. proMETHazin Yes [id number] 12.5mg Take 1 Univers e 12.5 mg 6-25 tablet by ity o f tablet 00:00: mouth [place] 00 every 6 Medical (six) Branch hours as needed for Nausea and Vomiting (N/V) or N/V unresponsi ve to Ondansetro n. proMETHazin Yes [id number] 12.5mg Take 1 Univers e 12.5 mg 6-25 tablet by ity o f tablet 00:00: mouth [place] 00 every 6 Medical (six) Branch hours as needed for Nausea and Vomiting (N/V) or N/V unresponsi ve to Ondansetro n. proMETHazin Yes [id number] 12.5mg Take 1 Univers e 12.5 mg 6-25 tablet by ity o f tablet 00:00: mouth [place] 00 every 6 Medical (six) Branch hours as needed for Nausea and Vomiting (N/V) or N/V unresponsi ve to Ondansetro n. proMETHazin Yes [id number] 12.5mg Take 1 Univers e 12.5 mg 6-25 tablet by ity o f tablet 00:00: mouth [place] 00 every 6 Medical (six) Branch hours as needed for Nausea and Vomiting (N/V) or N/V unresponsi ve to Ondansetro n. furosemide 2020- No [id number] 40mg Take 1 Univers 40 mg 6-25 07-26 tablet by ity of tablet 00:00: 04:59 mouth [place] 00 :00 every Medical morning Branch and evening for 30 days. lipase-prot 2020- No [id number] 2{capsu Take 2 Univers ease-amylas 6-25 07-26 le} capsules ity of e 00:00: 04:59 by mouth 3 [place] 12,000-38,0 00 :00 (three) Medic al 00 -60,000 times Branch unit daily with capsule meals for 30 days. lactobacill 2020- No [id number] .5mg Take 1 Univers us 6-25 07-26 tablet by ity of acidophilus 00:00: 04:59 mouth 2 [place] 00 :00 (two) Medical times Branch daily for 30 days. furosemide 2020- No [id number] 40mg Take 1 Univers 40 mg 6-25 07-26 tablet by ity of tablet 00:00: 04:59 mouth [place] 00 :00 every Medical morning Branch and evening for 30 days. lipase-prot 2020- No [id number] 2{capsu Take 2 Univers ease-amylas 6-25 07-26 le} capsules ity of e 00:00: 04:59 by mouth 3 [place] 12,000-38,0 00 :00 (three) Medic al 00 -60,000 times Branch unit daily with capsule meals for 30 days. lactobacill 2020- No [id number] .5mg Take 1 Univers us 6-25 07-26 tablet by ity of acidophilus 00:00: 04:59 mouth 2 [place] 00 :00 (two) Medical times Branch daily for 30 days. vancomycin 2020- No [id number] 125mg Take 1 Univers 125 mg 6-25 07-06 capsule by ity of capsule 00:00: 04:59 mouth 4 [place] 00 :00 (four) Medical times Branch daily for 10 days. vancomycin 2020- No [id number] 125mg Take 1 Univers 125 mg 6-25 [...] Indication s: acute pain cephALEXin 2020- No [id number] 500mg Take 1 Univers 500 mg 10-03 capsule by ity of capsule 00:00: 04:59 mouth 4 [place] 00 :00 (four) Medical times Branch daily for 5 days. cephALEXin 2020- No [id number] 500mg Take 1 Univers 500 mg 10-03 [...] QHSPRN, [place] mg 57 Starting Medical [facility] Branch 09/29/20 at 2251, Until Discontinu ed, Routine, Insomnia D5W 0.45% 2020- No IV Univers NaCl 09-29 Infusion, ity of (1/2NS) 1 L 21:00: 21:15 at 100 Quang as + KCL 20 00 :40 mL/hr, Medical mEq CONTINUOUS Branch , Starting [facility] 09/29/20 at 1600, Until Tue09/30/20 at 1615, Routine cholecalcif Yes 2000U 2,000 [facility] ers nuno 09-29 Units, ity of (vitamin 20:00: Oral, [place] D3) tablet 00 DAILY, Medical 2,000 Units First dose Br anch on [facility] 09/29/20 at 1500, Until Discontinu ed, Routine lactobacill Yes .5mg 0.5 mg, Uni vers us 09-29 Oral, BID, ity of acidophilus 14:15: First dose [place] tablet 0.5 00 on [facility] Medical mg 09/29/20 at Branch 0915, Until Discontinu ed, Routine KCL Yes 20meq 20 mEq, Univers (KLOR-CON 09-29 Oral, ity of M20) tablet 14:00: DAILY, [place] 20 mEq 00 First dose Medical (after Branch last reorder) on [facility] 09/29/20 at 0900, Until Discontinu ed, Routine lipase-prot Yes 2{capsu 2 capsule, Univers ease-amylas 09-29 le} Oral, TID ity of e (CREON) 08:45: MEALS, [place] 12,000-38,0 00 First dose Me dical 00 -60,000 on [facility] Branch unit 09/29/20 at capsule 2 0345, [...] :00 s, ONCE, 1 Medic al dose, [facility] 09/29/20 at 0245, Routine FENTanyl PF 2020- No 50ug 50 mcg, Un marline (SUBLIMAZE 09-29 Slow IV ity o f (PF)) 07:30: 06:27 Push, [place] injection 00 :00 ONCE, 1 Medical 50 mcg dose, [facility] 09/29/20 at 0230, Routine piperacilli 2020-2020- No 3.375g 3.375 g, Univers n-tazobacta 09-29 IV ity of m (ZOSYN) 07:30: 07:00 Piggyback, [place] 3.375 g in 00 :00 ONCE, 1 Medica l NaCl 0.9% dose, [facility] Branc h (NS) 100 mL 09/29/20 at [...] injection 4 17 Starting Medi molly mg [facility] Branch 09/29/20 at 0142, Until Discontinu ed, Routine, Nausea and Vomiting (N/V) iopamidol 2020- No [id number] 100mL 100 mL, Univers (ISOVUE 09-29 Intravenou [...] Spirit 00:00: 00:00 - CHI 00 :00 [facility] flu vaccine 2020- No .5mL 0.5 [...] for Pain (scale 4-6). acetaminoph 2020-0 Yes [id number] 1{tbl} Take 1 Univers en-codeine 5-02 tablet by ity of 300-30 mg 00:00: mouth [place] tablet 00 every 4 Medical (four) Branch hours as needed for Pain (scale 4-6). acetaminoph 2020-0 Yes [id number] 1{tbl} Take 1 Univers en-codeine 5-02 tablet by ity of 300-30 mg 00:00: mouth [place] tablet 00 every 4 Medical (four) Branch hours as needed for Pain (scale 4-6). acetaminoph 2020-0 Yes [id number] 1{tbl} Take 1 Univers en-codeine 5-02 tablet by ity of 300-30 mg 00:00: mouth [place] tablet 00 every 4 Medical (four) Branch hours as needed for Pain (scale 4-6). lactulose 2019-0 2020- No [id number] 30mL Take 30 mL Univers 10 gram/15 5-05 17- by mouth 2 it y of mL oral 00:00: 04:59 (two) [place] solution 00 :00 times Medical daily for Branch 30 days. pantoprazol 2019-0 2020- No [id number] 40mg Take 1 Univers e 40 mg EC -05 17- tablet by ity of tablet 00:00: 04:59 mouth [place] 00 :00 daily for Medical 30 days. Branch lactulose 2019-0 2020- No [id number] 30mL Take 30 mL Univers 10 gram/15 -05 17-02 by mouth 2 it y of mL oral 00:00: 04:59 (two) [place] solution 00 :00 times Medical daily for Branch 30 days. pantoprazol 2019-0 2020- No [id number] 40mg Take 1 Univers e 40 mg EC -05 17- tablet by ity of tablet 00:00: 04:59 mouth [place] 00 :00 daily for Medical 30 days. Branch propranolol 2019-0 2020- No [id number] 10mg Take 1 Univers 10 mg 5- [...] e Sodium e Sodium Singh defined Spir [facility] Acetaminoph Acetaminoph Yes Gm not Common en-Codeine en-Codeine Singh defined [facility] #3 #3 [facility] Oseltamivir Oseltamivir Yes Gm not Common Phosphate Phosphate Singh defined Sp cleopatra [facility] Levofloxaci Levofloxaci Yes Gm not Common n n Singh defined [facility] Xifaxan Xifaxan Yes Gm not Common Singh defined [facility] Lactulose Lactulose Yes Gm not Co mmon Singh defined [facility] Albuterol Albuterol Yes Gm not Co mmon Sulfate HFA Sulfate HFA Singh defined [facility] Azithromyci Azithromyci Yes Gm not Common n n Singh defined [facility] Amoxicillin Amoxicillin Yes Gm not Common -Pot -Pot Singh defined Spirit Clavulanate Clavulanate - CHI [facility] Immunizations Ordered Filled Immunization Date Status Comments [facility] e Immunization Name Name Pneumococcal 2020-10-03 [...] Completed Unive rsity of MODERNA VACCINE 00:00:00 [facility] ical Branch SARS-COV-2 COVID-19 2020-08-08 Completed Unive rsity of MODERNA VACCINE 00:00:00 [facility] ical Branch SARS-COV-2 COVID-19 2020-08-08 Completed Unive rsity of MODERNA VACCINE 00:00:00 [facility] ical Branch SARS-COV-2 COVID-19 2020-08-08 Completed Unive rsity of MODERNA VACCINE 00:00:00 [facility] ical Branch SARS-COV-2 COVID-19 2020-08-08 Completed Unive rsity of MODERNA VACCINE 00:00:00 [facility] ical Branch SARS-COV-2 COVID-19 2020-08-08 Completed Unive rsity of MODERNA VACCINE 00:00:00 [facility] ical Branch SARS-COV-2 COVID-19 2020-08-08 Completed Unive rsity of MODERNA VACCINE 00:00:00 [facility] ical Branch SARS-COV-2 COVID-19 2020-08-08 Completed Unive rsity of MODERNA VACCINE 00:00:00 [facility] SARS-COV-2 COVID-19 2020-07-11 Completed Unive rsity of MODERNA VACCINE 00:00:00 [facility] SARS-COV-2 COVID-19 2020-07-11 Completed Unive rsity of MODERNA VACCINE 00:00:00 [facility] SARS-COV-2 COVID-19 2020-07-11 Completed Unive rsity of MODERNA VACCINE 00:00:00 [facility] SARS-COV-2 COVID-19 2020-07-11 Completed Unive rsity of MODERNA VACCINE 00:00:00 [facility] SARS-COV-2 COVID-19 2020-07-11 Completed Unive rsity of MODERNA VACCINE 00:00:00 [facility] SARS-COV-2 COVID-19 2020-07-11 Completed Unive rsity of MODERNA VACCINE 00:00:00 [facility] SARS-COV-2 COVID-19 2020-07-11 Completed Unive rsity of MODERNA VACCINE 00:00:00 [facility] SARS-COV-2 COVID-19 2020-07-11 Completed Unive rsity of MODERNA VACCINE 00:00:00 [facility] Influenza Virus 2019-08-11 Completed Universit y of Vaccine [place] .5 mL 00:00:00 [facility] 6+ MO Branch Influenza Virus 2019-08-11 Completed Universit y of Vaccine [place] .5 mL 00:00:00 [facility] 6+ MO Branch Influenza Virus [...] y of Vaccine [place] .5 mL 00:00:00 [facility] 6+ MO Branch Influenza Virus 2019-08-11 Completed Universit y of Vaccine [place] .5 mL 00:00:00 [place] [facility] 6+ MO Branch Influenza Virus 2019-08-11 Completed Universit y of Vaccine [place] .5 mL 00:00:00 [facility] IM 6+ MO Branch Influenza Virus 2019-08-11 Completed Universit y of Vaccine [place] .5 mL 00:00:00 [facility] IM 6+ MO Branch Influenza Virus 2019-08-11 Completed Universit y of Vaccine [place] .5 mL 00:00:00 [facility] IM 6+ MO Branch Influenza Virus 2019-08-11 Completed Universit y of Vaccine [place] .5 mL 00:00:00 [facility] IM 6+ MO Branch Vital Signs Vital Name Observation Time Observation Value Comments Source Systolic blood 2021-04-02 18:55:00 138 mm[Hg] Univer sity of pressure [facility] Diastolic blood 2021-04-02 18:55:00 104 mm[Hg] Unive rsity of pressure [facility] Heart rate 2021-04-02 18:55:00 74 /min Universi ty [facility] Body temperature 2021-04-02 18:55:00 36.78 Sandee [facility] ersity [facility] Respiratory rate 2021-04-02 18:55:00 18 /min Univ ersity of [facility] Body weight 2021-04-02 18:55:00 122.471 kg Universi ty [facility] BMI 2021-04-02 18:55:00 46.35 kg/m2 Universi ty [facility] Oxygen saturation in 2021-04-02 18:55:00 97 /min University of Arterial blood by [facility] Pulse oximetry Branch Systolic blood 2020-10-03 17:23:00 132 mm[Hg] Univer sity of pressure [facility] Diastolic blood 2020-10-03 17:23:00 56 mm[Hg] Unive rsity of pressure [facility] Heart rate 2020-10-03 17:23:00 88 /min Universi ty of [facility] Body temperature 2020-10-03 17:23:00 36.94 Sandee Univ ersity of [facility] Respiratory rate 2020-10-03 17:23:00 18 /min Univ ersity [facility] Oxygen saturation in 2020-10-03 17:23:00 94 /min University of Arterial blood by [facility] Pulse oximetry Branch Body weight 2020-09-30 08:11:00 121.473 kg Universi ty of [place] [facility] BMI 2020-09-30 08:11:00 47.44 kg/m2 Universi ty of [place] [facility] Body height 2020-09-29 03:33:00 160 cm Universi ty of [place] [facility] Diastolic blood 2019-08-11 20:04:00 44 mm[Hg] Unive rsity of pressure [facility] Heart rate 2019-08-11 20:04:00 70 /min Universi ty of [place] [facility] Body temperature 2019-08-11 20:04:00 36.61 Sandee Univ ersity of [place] [facility] Respiratory rate 2019-08-11 20:04:00 18 /min Univ ersity of [place] [facility] Oxygen saturation in 2019-08-11 20:04:00 91 /min University of Arterial blood by [facility] Pulse oximetry Branch Systolic blood 2019-08-11 20:04:00 107 mm[Hg] Univer sity of [facility] Body height 2019-08-10 08:01:00 162.6 cm Universi ty of [place] [facility] [place] Body weight 2019-08-10 08:01:00 119.296 kg Universi ty of [place] [facility] BMI 2019-08-10 08:01:00 45.14 kg/m2 Universi ty of [place] [facility] Diastolic blood 2019-08-11 20:04:00 44 mm[Hg] Unive rsity of [facility] Heart rate 2019-08-11 20:04:00 70 /min Universi ty of [place] [facility] Body temperature 2019-08-11 20:04:00 36.61 Sandee Univ ersity of [place] [facility] Respiratory rate 2019-08-11 20:04:00 18 /min Univ ersity of [place] [facility] Oxygen saturation in 2019-08-11 20:04:00 91 /min University of Arterial blood by [facility] Pulse oximetry Branch Systolic blood 2019-08-11 20:04:00 107 mm[Hg] Univer sity of [facility] Body height 2019-08-10 08:01:00 162.6 cm Universi ty of [place] [facility] [place] Body weight 2019-08-10 08:01:00 119.296 kg Universi ty of [place] [facility] BMI 2019-08-10 08:01:00 45.14 kg/m2 Universi ty of [place] [facility] Procedures Procedure Date / Time Performing Clinician Source Performed XR KNEE 3 VW LEFT 2021-04-02 20:10:39 [facility] CONSENT/REFUSAL FOR 2021-04-02 17:59:31 [facility] DIAGNOSIS AND TREATMENT [place] [facility] ASSIGNMENT OF BENEFITS 2021-03-10 20:29:46 Doctor Unassigned, [facility] [place] [facility] PHOSPHORUS 2020-10-03 08:52:00 [facility] 2020-10-03 08:52:00 [facility] COMP. METABOLIC PANEL 2020-10-03 08:52:[address] [facility] ([id number]) [facility] CBC WITH DIFF 2020-10-03 08:52:[address] [facility] COMP. METABOLIC PANEL 2020-10-02 08:39:00 [id number] CBC WITH DIFF 2020-10-02 08:39:00 [facility] US DUPLEX VENOUS ARM LEFT 2020-10-01 16:22:58 Brenda Teixeira [facility] - BY VASCULAR LAB [facility] COMP. METABOLIC PANEL 2020-10-01 07:45:00 Tomasa Escamilla [facility] ([id number]) [facility] CBC WITH DIFF 2020-10-01 07:45:00 Tomasa Escamilla [facility] TROPONIN I 2020-09-30 10:56:00 Marco Levy [facility] COMP. METABOLIC PANEL 2020-09-30 10:56:00 Millie sharad [facility] ([id number]) [facility] CBC WITH DIFF 2020-09-30 10:56:00 Millie sharad [facility] N-TERMINAL PRO-BNP 2020-09-30 08:05:00 Wes Brito [facility] OCCULT (GUAIAC) BLOOD 2020-09-30 02:10:00 Millie [facility] FECAL LEUKOCYTES 2020-09-30 02:10:00 Millie sharad [facility] CLOSTRIDIUM DIFFICILE 2020-09-30 02:10:00 Millie sharad [facility] FECAL PATHOGENS BY PCR 2020-09-30 02:10:00 Wes Brito [facility] POCT GLUCOSE (AUTOMATED) 2020-09-30 00:35:00 Rene Evans [facility] BASIC METABOLIC PANEL 2020-09-29 21:11:00 Wes Brito [facility] (NA, K, CL, CO2, GLUCOSE, Medica l Branch BUN, CREATININE, CA) HEMOGLOBIN 2020-09-29 21:11:00 Tomasa Escamilla [facility] TRANSTHORACIC ECHO (TTE) 2020-09-29 16:03:00 Marco Levy [facility] HB ECG ROUTINE & RHYTHM 2020-09-29 11:18:58 Wes Brito [facility] OSMOLALITY URINE 2020-09-29 08:56:00 Millie [facility] URINE CULTURE 2020-09-29 08:56:00 Millie sharad [facility] SODIUM, URINE RANDOM 2020-09-29 08:56:00 Wes Brito [facility] PROTEIN CREAT RATIO URINE 2020-09-29 08:56:00 Wes Brito [facility] BLOOD CULTURE SCREEN 2020-09-29 08:32:00 Wes Brito [facility] LACTIC ACID WHOLE BLOOD 2020-09-29 08:32:00 Millie sharad [facility] VITAMIN B12, LEVEL 2020-09-29 08:31:00 Wes Brito [facility] C-REACTIVE PROTEIN 2020-09-29 08:31:00 Wes Brito [facility] IRON PANEL 2020-09-29 08:31:00 Millie sharad [facility] SEDIMENTATION RATE 2020-09-29 08:31:00 Wes Brito [facility] DIFF CONSULT 2020-09-29 08:31:00 Millie sharad [facility] CBC WITH DIFF 2020-09-29 08:31:00 Millie [facility] PROTHROMBIN TIME / INR 2020-09-29 08:31:00 Wes Brito [facility] N-TERMINAL PRO-BNP 2020-09-29 08:31:00 Wes Brito [facility] VITAMIN D, 25-OH 2020-09-29 08:31:00 Millie [facility] PROCALCITONIN 2020-09-29 08:31:00 Millie sharad [facility] COVID-19 (ID NOW RAPID 2020-09-29 05:10:00 Rene Evans [facility] TESTING) Medical Branch LAB ONLY COVID 2020-09-29 05:10:00 Rene Evans [facility] INTERPRETATION [facility] CT ABDOMEN PELVIS W 2020-09-29 04:56:31 Rene Evans [facility] CONTRAST [facility] Branch URINALYSIS 2020-09-29 04:19:00 Rene Evans [facility] PHOSPHORUS 2020-09-29 03:54:00 Millie sharad [facility] CREATINE KINASE 2020-09-29 03:54:00 Millie sharad [facility] URIC ACID 2020-09-29 03:54:00 Millie sharad [facility] LIPASE 2020-09-29 03:54:00 Rene Evans [facility] MAGNESIUM 2020-09-29 03:54:00 Millie [facility] FERRITIN SERUM 2020-09-29 03:54:00 Millie [facility] TROPONIN I 2020-09-29 03:54:00 Marco Levy [facility] THYROID STIMULATING 2020-09-29 03:54:00 Wes Brito [facility] HORMONE Medical Branch COMP. METABOLIC PANEL 2020-09-29 03:54:00 Rene Evans [facility] ([id number]) Medical [place] LIPID PANEL ([id number])(TOTAL 2020-09-29 03:54:00 Wes Brito [facility] CHOLESTEROL, [facility] TRIGLYCERIDES, HDL) CBC WITH DIFF 2020-09-29 03:54:00 Rene Evans [facility] GLYCOSYLATED HEMOGLOBIN 2020-09-29 03:54:00 Wes Brito [facility] (A1C) [facility] N-TERMINAL PRO-BNP 2020-09-29 03:54:00 Wes Brito [facility] CONSENT/REFUSAL FOR 2020-09-29 03:18:51 Doctor Unassigned, [facility] OF [facility]ACY 2020-09-29 03:18:30 Doctor Unassigned, [facility] PRACTICES [place] Medical [place] CT ABDOMEN PELVIS W 2019-08-11 14:50:46 Corby Ca [facility] CONTRAST [facility] Branch COMP. METABOLIC PANEL 2019-08-11 08:00:00 Wes Brito [facility] ([id number]) [facility] CBC WITH DIFFERENTIAL 2019-08-11 08:00:00 Millie sharad [facility] CBC WITH DIFFERENTIAL 2019-08-11 08:00:00 Wes Brito [facility] XR SMALL BOWEL SERIES 2019-08-10 21:18:47 Valente Piña [facility] XR ABDOMEN 1 VW 2019-08-10 11:52:39 Wes Brito [facility] PHOSPHORUS 2019-08-10 11:11:00 Millie sharad [facility] CREATINE KINASE 2019-08-10 11:11:00 Millie sharad [facility] AMYLASE 2019-08-10 11:11:00 Millie sharad [facility] LIPASE 2019-08-10 11:11:00 Millie sharad [facility] MAGNESIUM 2019-08-10 11:11:00 Wes Brito [place] [facility] TEST, SERUM 2019-08-10 11:11:00 Wes Brito [facility] THYROID STIMULATING 2019-08-10 11:11:00 Wes Brito [facility] HORMONE [facility] COMP. METABOLIC PANEL 2019-08-10 11:11:00 Wes Brito [facility] ([id number]) [facility] LIPID PANEL (95204)(TOTAL 2019-08-10 11:11:00 Wes Brito [facility] CHOLESTEROL, [facility] TRIGLYCERIDES, HDL) SEDIMENTATION RATE 2019-08-10 11:11:00 Wes Brito [facility] CBC WITH DIFFERENTIAL 2019-08-10 11:11:00 Wes Brito [facility] GLYCOSYLATED HEMOGLOBIN 2019-08-10 11:11:00 Wes Brito [facility] (A1C) [facility] PROTHROMBIN TIME / INR 2019-08-10 11:11:00 Wes Brito [facility] CORONAVIRUS COVID-19 2019-08-10 09:04:00 Wes Brito [facility] TESTING [facility] Encounters Start End Encounter Admission Attending Care Care Encounter Source Date/Time Date/Time Type Type Clinicians Facility Department ID 2021-05-06 Outpatient Kattegummul [facility] [id number] Common 14:30:56 Madhu peterson [facility] 2021-05-06 Outpatient Kattegummul [facility] [id number] Common 14:26:04 kristen, Madhu [id number] [facility] 2021-05-06 Outpatient Kattegummul [facility] [id number] Common 14:05:28 Madhu peterson [id number] [facility] 2021-05-06 Outpatient Kattegummul [facility] [id number] Common 13:37:29 Madhu peterson [id number] [facility] 2021-05-06 [facility] [place] [id number] Common 13:36:02 Annalise [id number] [facility] 2021-05-06 Outpatient Harley [facility] [id number] Common 11:25:36 Annalise 47553 [facility] 2021-02-09 Emergency [facility] [id number] Univers 02:25:27 ity [facility] 2021-04-07 2021-04-07 Letter Orthopedic [facility] 1.2.840.114 [id number] Univers 00:00:00 00:00:00 (Out) Clinic SPECIALTY 350.1.13.10 ity of [facility] 4.2.7.2.686 [facility] AT [phone] Ga [address]ia[address] 2021-04-02 2021-04-02 Emergency [facility] [id number] Univers 12:58:00 15:25:00 [facility] 2021-04-02 2021-04-02 Emergency [facility] 1.2.840.114 [id number] Univers 12:58:00 15:25:00 [facility] 350.1.13.10 ity [facility] 4.2.7.2.686 [facility] [phone] [facility] 084 [place] 2021-03-11 2021-03-11 Telephone VERONIQUE Cruz [id number] Univers 00:00:00 00:00:00 Frances SÁNCHEZ 350.1.13.10 it y of [facility] 4.2.7.2.686 Quang [id number] [facility] 019 [place] 2021-03-10 2021-03-10 Outpatient R NETTIE [facility] [id number] Univers 14:45:00 14:51:40 [facility] 2021-03-10 2021-03-10 Outpatient R [facility] [id number] Univers 14:45:00 14:45:00 [id number] ity [facility] 2021-03-10 2021-03-10 Laboratory Only, Ang Db Test [facility] 1.2.8 40.114 [id number] Univers 14:29:53 14:44:53 Only Unknown, Attending HEALTH 350.1.13.10 ity of [place] 4.2.7.2.686 Quang as MARINA?BLEA [phone] [address] MEDICAL OFFICE BUILDING 2021-03-10 2021-03-10 Orders Doctor VERONIQUE 1.2.840.114 [id number] Univers 00:00:00 00:00:00 Only Unassigned, GONZALO 350.1.13.10 ity of [facility] 4.2.7.2.686 Quang as [phone] [facility] 009 Branch 2021-02-18 2021-02-20 Inpatient JAIME, [facility] [id number] [place] 00:00:00 00:00:00 CHERI [address] 2021-02-03 2021-02-04 Emergency X [facility] ERT [id number] Univers 21:10:00 03:21:00 GARTH ity of [facility] 2020-10-21 2020-10-27 Inpatient SYLVIA, [facility] [id number] [place] 00:00:00 00:00:00 ROBERTH [address] 2020-10-06 2020-10-06 Transition Jocelyne Taylor 1.2.840.114 [id number] Univers 00:00:00 00:00:00 of Care Madiha Sotelo 350.1.13.10 i ty of [place] [phone] [facility] 403 Branch 2020-09-28 2020-10-03 [facility] Rene Evans [facility] 1.2.840. 114 [id number] Univers 22:23:00 13:05:00 Encounter MillieWes 350.1.13.10 it[place] of [place] [id number] [facility] 081 Branch 2020-09-28 2020-09-28 Orders Doctor VERONIQUE 1.2.840.114 [id number] Univers 00:00:00 00:00:00 Only Unassigned, GONZALO 350.1.13.10 ity of [place] [facility] 4.2.7.2.686 Quang as [phone] [facility] 009 Branch 2020-09-09 2020-09-[address] [facility] [id number] [place] 00:00:00 00:00:00 462 Method i 2020-08-08 2020-08-08 Outpatient Sami GERMAN, [facility] [id number] Univers 15:40:00 15:40:00 TERRI ity [facility] 2020-07-11 2020-07-11 Outpatient [facility] [id number] Univers 15:40:00 15:40:00 ity [facility] 2020-06-09 2020-06-[address] [facility] [id number] [place] 00:00:00 00:00:00 836 Method i 2020-03-19 2020-03-23 Inpatient DINAKAR, [facility] [id number] [place] 00:00:00 00:00:00 CHERI 742 Method i 2020-03-14 2020-03-18 Inpatient DINAKAR, [facility] [id number] 585 [place] 00:00:00 00:00:00 CHERI 157 Method i 2020-02-13 2020-02-13 Laboratory Lab, [facility] 1.2.840.114 [id number] 10:22:10 10:42:10 Only Fam Pob I Health 350.1.13.10 [place] 4.2.7.2.686 Professio [phone] nal [facility] Office Building [facility] 2020-02-13 2020-02-13 Laboratory Lab, [facility] Fam Pob I RIMB 1.2. 840.114 [id number] [facility] 10:22:10 10:42:10 Only Dulce [facility] 350.1.13.10 ity of [place] 4.2.7.2.686 Quang as Professio [phone] Ga dical [address] Office Building One 2019-09-28 2019-09-28 Outpatient [facility] [id number] Common 09:00:00 09:00:00 t [facility] 2019-09-18 2019-09-18 Outpatient [facility] [id number] Common 09:30:00 09:30:00 t Bone Bone [facility] Spiri t and [facility] 2019-08-14 2019-08-14 Transition Nasrin, Yelenali 1.2.840.114 [id number] 00:00:00 00:00:00 of Care Jovanny Sotelo 350.1.13.10 [place] 4.2.7.2.686 [id number] 2019-08-14 2019-08-14 Transition NasrinYelena ambrizli 1.2.840.114 [id number] Univers 00:00:00 00:00:00 of Care Jovanny Sotelo 350.1.13.10 ity of [place] [phone] [place] [address] Branch 2019-08-10 2019-08-11 [facility] 1.2.888.687 [id number] 02:55:00 16:09:00 Encounter Wes Amin 350.1.13.10 [place] 4.2.7.2.686 [place] [id number] 1 2019-08-10 2019-08-11 Inpatient U [facility] SHRUTI [id number] Univers 02:55:00 16:09:00 VENKATESHNAN ity [facility] 2019-08-10 2019-08-11 [facility] 1.2.482.388 [id number] Univers 02:55:00 16:09:00 Encounter Wes [place] 350.1.13.10 ity of [place] [id number] [address] Results Test Description Test Time Test Comments Results Result Comments Source MAGNESIUM 2020-10-03 09:34:08 Test Item Value Reference Range Interpretation Comme nts MAGNESIUM (test code = 3498976714) 1.4 mg/dL 1.7-2.4 L Lab Interpretation (test code = 01209-4) [facility]normal [facility]74975[facility]2020-10-03 09:33:48 Test Item Value Reference Range Interpretation Comments NA (test code = 136 mmol/L 135-145 6538153736) K (test code = 3.3 mmol/L 3.5-5.0 L 0640888623) CL (test code = 100 mmol/L 98-108 1121660347) CO2 TOTAL (test code = 33 mmol/L 23-31 H 7491949968) AGAP (test code = 2-16 3596398485) BUN (test code = 3 mg/dL 7-23 L 9670644680) GLUCOSE (test code = 95 mg/dL 70-110 8324072233) CREATININE (test code = 0.47 mg/dL 0.50-1.04 L 9190037708) TOTAL BILI (test code = 1.5 mg/dL 0.1-1.1 H 9442971005) CALCIUM (test code = 8.1 mg/dL 8.6-10.6 L 1083200400) T PROTEIN (test code = 5.9 g/dL 6.3-8.2 L 4235306198) ALBUMIN (test code = 2.9 g/dL 3.5-5.0 L 0587894703) ALK PHOS (test code = 115 U/L 34-122 1242177825) ALTv (test code = 24 U/L 5-35 1742-6) AST(SGOT) (test code = 35 U/L 13-40 4918474714) eGFR (test code = mL/min/1.73m2 8055113820) SNOW (test code = SNOW) Association of [...] tests). Lab Interpretation Abnormal (test code = 93938-1) [facility] 09:33:28 Test Item Value Reference Range Interpretation Comments PHOSPHORUS (test code = 4010157126) 2.8 mg/dL 2.5-5.0 Lab Interpretation (test code = Normal 10105-1) [facility] [id number] 09:31:46 Test Item Value Reference Range Interpretation [...] (test code = 53.8 fL 39.0-49.9 H 84431-6) RDW-CV (test code = 19.9 % 12.0-15.5 H 788-0) PLT (test code = See_Comment L [Automated 777-3) message] The sy stem which generated this result transmitted reference range : 166 - 358 10*3/ ?L. The reference r davi was not used to interpret this result as normal/abnormal . MPV (test code = 10.9 fL 9.5-12.9 13741-7) IPF % (test code = 3.6 % 1.3-7.7 Platelet count 0444026950) measured by fluorescence method. NRBC/100 WBC (test See_Comment [Automat ed code = 1394217972) message] The system which generated this result transmitted reference range : 0.0 - 10.0 /100 WBCs. The refer ence range was not u sed to interpret th is result as normal/abnormal . NRBC x10^3 (test code See_Comment [Auto mated = 8416386779) message] The s ystem which generated this result transmitted reference range : 10*3/?L. The reference range was not used to interpret this result as normal/abnormal . GRAN MAT (NEUT) % 68.1 % (test code = 770-8) IMM GRAN % (test code 1.10 % = 3110009847) LYMPH % (test code = 15.5 % 736-9) MONO % (test code = 11.3 % 5905-5) EOS % (test code = 3.4 % 713-8) BASO % (test code = 0.6 % 706-2) GRAN MAT x10^3(ANC) 2.42 10*3/uL 1.88-7.09 (test code = 5681961622) IMM GRAN x10^3 (test 0.04 10*3/uL 0.00-0.06 code = 6145663453) LYMPH x10^3 (test code 0.55 10*3/uL 1.32-3.29 L = 731-0) MONO x10^3 (test code 0.40 10*3/uL 0.33-0.92 = 742-7) EOS x10^3 (test code = 0.12 10*3/uL 0.03-0.39 711-2) BASO x10^3 (test code <0.03 0.01-0.07 = 704-7) Lab Interpretation Abnormal (test code = 36153-7) [facility] WITH [id number] 10:47:09 Test Item Value Reference Range Interpretation [...] (test code = 52.2 fL 39.0-49.9 H 76571-8) RDW-CV (test code = 18.6 % 12.0-15.5 H 788-0) PLT (test code = See_Comment L [Automated 777-3) message] The sy stem which generated this result transmitted reference range : 166 - 358 10*3/ ?L. The reference r davi was not used to interpret this result as normal/abnormal . MPV (test code = 10.1 fL 9.5-12.9 77353-5) IPF % (test code = 3.2 % 1.3-7.7 Platelet count 5447614464) measured by fluorescence method. NRBC/100 WBC (test See_Comment [Automat ed code = 0170788996) message] The system which generated this result transmitted reference range : 0.0 - 10.0 /100 WBCs. The refer ence range was not u sed to interpret th is result as normal/abnormal . NRBC x10^3 (test code See_Comment [Auto mated = 2922841260) message] The s ystem which generated this result transmitted reference range : 10*3/?L. The reference range was not used to interpret this result as normal/abnormal . GRAN MAT (NEUT) % 65.1 % (test code = 770-8) IMM GRAN % (test code 1.20 % = 7896662935) LYMPH % (test code = 16.9 % 736-9) MONO % (test code = 11.5 % 5905-5) EOS % (test code = 4.5 % 713-8) BASO % (test code = 0.8 % 706-2) GRAN MAT x10^3(ANC) 1.58 10*3/uL 1.88-7.09 L (test code = 4684031331) IMM GRAN x10^3 (test 0.03 10*3/uL 0.00-0.06 code = 1589395877) LYMPH x10^3 (test code 0.41 10*3/uL 1.32-3.29 L = 731-0) MONO x10^3 (test code 0.28 10*3/uL 0.33-0.92 L = 742-7) EOS x10^3 (test code = 0.11 10*3/uL 0.03-0.39 711-2) BASO x10^3 (test code <0.03 0.01-0.07 = 704-7) POLYCHROMASIA (test 2+ See_Comment [Automa josemanuel code = 29725-9) message] The system which generated this result transmitted reference range : 2+. The referen ce range was not u sed to interpret th is result as normal/abnormal . LG GRAN LYMPHS (test Rare Rare code = 4275487715) Lab Interpretation Abnormal (test code = 16545-1) [facility] (94990)2020-10-02 10:19:28 Test Item Value Reference Range Interpretation Comments NA (test code = 135 mmol/L 135-145 1050580339) K (test code = 3.4 mmol/L 3.5-5.0 L 2350501047) CL (test code = 104 mmol/L 98-108 7920887720) CO2 TOTAL (test code = 27 mmol/L 23-31 4666272597) AGAP (test code = 2-16 4600660234) BUN (test code = 4 mg/dL 7-23 L 2665475177) GLUCOSE (test code = 97 mg/dL 70-110 7905553955) CREATININE (test code = 0.45 mg/dL 0.50-1.04 L 0674695060) TOTAL BILI (test code = 1.7 mg/dL 0.1-1.1 H 3710804585) CALCIUM (test code = 8.2 mg/dL 8.6-10.6 L 8163136042) T PROTEIN (test code = 6.0 g/dL 6.3-8.2 L 1575245072) ALBUMIN (test code = 3.1 g/dL 3.5-5.0 L 3905246872) ALK PHOS (test code = 120 U/L 34-122 9592730097) ALTv (test code = 26 U/L 5-35 1742-6) AST(SGOT) (test code = 39 U/L 13-40 7978686077) eGFR (test code = mL/min/1.73m2 1752350264) SNOW (test code = SNOW) Association of [...] tests). Lab Interpretation Abnormal (test code = 97552-7) [facility] COVID [id number] 02:50:27COVID DMT InterpretationInterpretation/Recommendations: Molecular NAAT Tests for [...] COVID-19 testing the patient has had at [facility], including molecular NAAT testing (more commonly known as PCR testing and Rapid ID Now testing) and antibody testing. It does not take into account any testing that a patient has had outside of the [facility] medical record. [facility] LABORATORY SERVICESCOVID Resu uwuOJDV-NdY-7 NAAT (no units) ? ? Date ? Value ? 02/13/2020 ? Not Detected ? SARS-CoV-2 Rapid ID NOW (no units) ? ? Date ? Value ? 09/29/2020 ? Not Detected ? ? ? 08/10/2019 ? Not Detected ? [facility]Un[facility] WITH [id number] 10:31:29 Test Item Value Reference Range Interpretation [...] (test code = 52.3 fL 39.0-49.9 H 72186-0) RDW-CV (test code = 18.4 % 12.0-15.5 H 788-0) PLT (test code = See_Comment LL [Automated 777-3) message] The sy stem which generated this result transmitted reference range : 166 - 358 10*3/ ?L. The reference r davi was not used to interpret this result as normal/abnormal . MPV (test code = 11.2 fL 9.5-12.9 25985-8) IPF % (test code = 3.9 % 1.3-7.7 Platelet count 4535542146) measured by fluorescence method. NRBC/100 WBC (test See_Comment [Automat ed code = 1062052206) message] The system which generated this result transmitted reference range : 0.0 - 10.0 /100 WBCs. The refer ence range was not u sed to interpret th is result as normal/abnormal . NRBC x10^3 (test code <0.01 See_Comment [Auto mated = 6619831293) message] The s ystem which generated this result transmitted reference range : 10*3/?L. The reference range was not used to interpret this result as normal/abnormal . GRAN MAT (NEUT) % 57.5 % (test code = 770-8) IMM GRAN % (test code 0.50 % = 0004978318) LYMPH % (test code = 20.7 % 736-9) MONO % (test code = 13.3 % 5905-5) EOS % (test code = 6.9 % 713-8) BASO % (test code = 1.1 % 706-2) GRAN MAT x10^3(ANC) 1.08 10*3/uL 1.88-7.09 L (test code = 2244911533) IMM GRAN x10^3 (test <0.03 0.00-0.06 code = 4501522902) LYMPH x10^3 (test code 0.39 10*3/uL 1.32-3.29 L = 731-0) MONO x10^3 (test code 0.25 10*3/uL 0.33-0.92 L = 742-7) EOS x10^3 (test code = 0.13 10*3/uL 0.03-0.39 711-2) BASO x10^3 (test code <0.03 0.01-0.07 = 704-7) BASO STIPPLING (test Present A code = 703-9) ELLIPTO/OVAL (test 2+ See_Comment A [Automat ed code = 17634-6) message] The system which generated this result transmitted reference range : (none). The reference range was not used to interpret this result as normal/abnormal . POLYCHROMASIA (test 2+ See_Comment [Automa josemanuel code = 41032-4) message] The system which generated this result transmitted reference range : 2+. The referen ce range was not u sed to interpret th is result as normal/abnormal . Lab Interpretation Abnormal (test code = 79810-2) [facility]. METABOLIC PANEL (11414)2020-10-01 09:19:22 Test Item Value Reference Range Interpretation Comments NA (test code = 135 mmol/L 135-145 5660336469) K (test code = 4.0 mmol/L 3.5-5.0 0084740658) CL (test code = 107 mmol/L 98-108 3906749033) CO2 TOTAL (test code = 24 mmol/L 23-31 3302867721) AGAP (test code = 2-16 5205836238) BUN (test code = 7 mg/dL 7-23 7436914722) GLUCOSE (test code = 93 mg/dL 70-110 3169877451) CREATININE (test code = 0.47 mg/dL 0.50-1.04 L 0550869253) TOTAL BILI (test code = 1.6 mg/dL 0.1-1.1 H 2498369356) CALCIUM (test code = 8.1 mg/dL 8.6-10.6 L 1221630401) T PROTEIN (test code = 5.8 g/dL 6.3-8.2 L 8918608284) ALBUMIN (test code = 2.8 g/dL 3.5-5.0 L 1025410162) ALK PHOS (test code = 106 U/L 34-122 7615231138) ALTv (test code = 23 U/L 5-35 1742-6) AST(SGOT) (test code = 39 U/L 13-40 5259458062) eGFR (test code = mL/min/1.73m2 4822944906) SNOW (test code = SNOW) Association of [...] tests). Lab Interpretation Abnormal (test code = 84220-8) [facility] HospitalTEDLUDWIG [id number] 20:47:45 Test Item Value Reference Range Interpretation Comments TROPONIN I (test 0.002 ng/mL See_Comment [Automated code = 9516335486) message] The system which generated this result [...] ? Lab Interpretation Normal (test code = 40460-2) [facility] [id number] 19:11:57 Test Item Value Reference Range Interpretation Comments URINE CULTURE (test code <10,000 CFU/mL = 630-4) Gram-Positive Cocci [facility] HospitalFECAL PATHOGENS BY [id number] 18:17:03 Test Item Value Reference Range Interpretation Comments Campylobacter (jejuni, Negative Negative, coli and upsaliensis) Indeterminate, (test code = 28935-4) See comment Plesiomonas shigelloides Negative Negative, (test code = 67613-3) Indeterminate, See comment Salmonella (test code = Negative Negative, 80112-6) Indeterminate, See comment Yersinia enterocolitica Negative Negative, (test code = 48610-7) Indeterminate, See comment Vibrio (test code = Negative Negative, 32122-3) Indeterminate, See comment Vibrio cholerae (test Negative Negative, code = 99030-9) Indeterminate, See comment Enteroaggregative E. Negative Negative, coli (EAEC) (test code = Indeterminate, 02206-6) See comment Enteropathogenic E. coli Negative Negative, N/A, (EPEC) (test code = Indeterminate, 89694-5) See comment Enterotoxigenic E. coli Negative Negative, (ETEC) (test code = Indeterminate, 70696-6) See comment Shiga toxin-Producing E. Negative Negative, coli (STEC) (test code = Indeterminate, 41831-6) See comment Shigella/Enteroinvasive Negative Negative, E. coli (EIEC) (test Indeterminate, code = 13451-9) See comment Cryptosporidium (test Negative Negative, code = 80829-3) Indeterminate, See comment Cyclospora cayetanensis Negative Negative, (test code = 06099-1) Indeterminate, See comment Entamoeba histolytica Negative Negative, (test code = 41320-1) Indeterminate, See comment Giardia lamblia (test Negative Negative, code = 13486-5) Indeterminate, See comment Adenovirus F 40/41 (test Negative Negative, code = 76288-3) Indeterminate, See comment Astrovirus (test code = Negative Negative, 63877-0) Indeterminate, See comment Norovirus GI/GII (test Negative Negative, code = 77894-5) Indeterminate, See comment Rotavirus A (test code = Negative Negative, 46967-7) Indeterminate, See comment Sapovirus (test code = Negative Negative, 70714-1) Indeterminate, See comment Clostridioides Positive Negative, A (Clostridium) difficile Indeterminate, Toxin A/B (test code = See comment 91102-3) SNOW (test code = SNOW) Based on [...] the binary toxin gene (CDT), and the pkfotj-gbwv-cmbu deletion at nucleotide 117 within the gene [...] organism. Lab Interpretation (test Abnormal code = 63299-5) [facility] (GUAIAC) [id number] 14:26:32 Test Item Value Reference Range Interpretation Comments Occult (guaiac) Blood (test code = Negative Negative 2335-8) Lab Interpretation (test code = Normal 29100-8) [facility] WITH [id number] 13:54:12 Test Item Value Reference Range Interpretation [...] (test code = 52.9 fL 39.0-49.9 H 21428-3) RDW-CV (test code = 18.3 % 12.0-15.5 H 788-0) PLT (test code = See_Comment LL [Automated 777-3) message] The sy stem which generated this result transmitted reference range : 166 - 358 10*3/ ?L. The reference r davi was not used to interpret this result as normal/abnormal . MPV (test code = 10.8 fL 9.5-12.9 64697-4) IPF % (test code = 4.2 % 1.3-7.7 Platelet count 4776419952) measured by fluorescence method. NRBC/100 WBC (test See_Comment [Automat ed code = 9293043765) message] The system which generated this result transmitted reference range : 0.0 - 10.0 /100 WBCs. The refer ence range was not u sed to interpret th is result as normal/abnormal . NRBC x10^3 (test code <0.01 See_Comment [Auto mated = 1842755896) message] The s ystem which generated this result transmitted reference range : 10*3/?L. The reference range was not used to interpret this result as normal/abnormal . GRAN MAT (NEUT) % 60.0 % (test code = 770-8) IMM GRAN % (test code 0.40 % = 5941187372) LYMPH % (test code = 20.6 % 736-9) MONO % (test code = 11.3 % 5905-5) EOS % (test code = 6.9 % 713-8) BASO % (test code = 0.8 % 706-2) GRAN MAT x10^3(ANC) 1.49 10*3/uL 1.88-7.09 L (test code = 1490553492) IMM GRAN x10^3 (test <0.03 0.00-0.06 code = 7668541990) LYMPH x10^3 (test code 0.51 10*3/uL 1.32-3.29 L = 731-0) MONO x10^3 (test code 0.28 10*3/uL 0.33-0.92 L = 742-7) EOS x10^3 (test code = 0.17 10*3/uL 0.03-0.39 711-2) BASO x10^3 (test code <0.03 0.01-0.07 = 704-7) Lab Interpretation Abnormal (test code = 37104-2) [facility] METABOLIC PANEL (39429)2020-09-30 12:47:49 Test Item Value Reference Range Interpretation Comments NA (test code = 135 mmol/L 135-145 [id number]) K (test code = 4.0 mmol/L 3.5-5.0 5331344347) CL (test code = 108 mmol/L 98-108 0788669027) CO2 TOTAL (test code = 23 mmol/L 23-31 5391245972) AGAP (test code = 2-16 2317050384) BUN (test code = 8 mg/dL 7-23 7432047973) GLUCOSE (test code = 109 mg/dL 70-110 6085053316) CREATININE (test code = 0.52 mg/dL 0.50-1.04 6074833645) TOTAL BILI (test code = 1.7 mg/dL 0.1-1.1 H 4549789796) CALCIUM (test code = 8.0 mg/dL 8.6-10.6 L 3183506602) T PROTEIN (test code = 5.7 g/dL 6.3-8.2 L 1390494296) ALBUMIN (test code = 2.7 g/dL 3.5-5.0 L 3508367171) ALK PHOS (test code = 106 U/L 34-122 0978599437) ALTv (test code = 22 U/L 5-35 1742-6) AST(SGOT) (test code = 34 U/L 13-40 4228107752) eGFR (test code = mL/min/1.73m2 1860053724) SNOW (test code = SNOW) Association of [...] tests). Lab Interpretation Abnormal (test code = 08150-2) [facility] [id number] 11:49:39 Test Item Value Reference Range Interpretation Comments Fecal Leukocytes (test code = Positive Negative A 4530922849) Lab Interpretation (test code = Abnormal 67582-1) [facility] [id number] 10:20:53 Test Item Value Reference Range Interpretation Comments NT-proBNP (test code 68 pg/mL See_Comment [Autom ated = 7656902278) message] The system which generated this result transmitted reference range : <=125. The reference range was not used to interpret this result as normal/abnormal . SNOW (test code = SNOW) Biotin has been reported to cause a negative bias, interpret results relative to patient's use of biotin. Lab Interpretation Normal (test code = 05655-4) [facility]CLOSTRIDIUM DIFFICILE [id number] 05:18:16 Test Item Value Reference Range Interpretation Comments Clostridioides (Clostridium) Negative Negative difficile (test code = 26666-1) Lab Interpretation (test code = Normal 48186-1) [facility]AUTOMATED)2020-09-30 00:54:42 Test Item Value Reference Range Interpretation Comments POCT GLU (test code = 9521489630) 111 mg/dL 70-110 H Lab Interpretation (test code = Abnormal 96350-3) [facility]BAS[facility]OL[facility] PANEL (NA, K, CL, CO2, GLUCOSE, BUN, CREATININE, CA)2020-09-29 22:08:22 Test Item Value Reference Range Interpretation Comments NA (test code = 135 mmol/L 135-145 7996801870) K (test code = 3.7 mmol/L 3.5-5.0 2862357018) CL (test code = 108 mmol/L 98-108 3217736537) CO2 TOTAL (test code = 22 mmol/L 23-31 L 4343589593) AGAP (test code = 2-16 5090440970) BUN (test code = 9 mg/dL 7-23 6647935447) GLUCOSE (test code = 104 mg/dL 70-110 6106661150) CREATININE (test code = 0.51 mg/dL 0.50-1.04 6023667451) CALCIUM (test code = 7.9 mg/dL 8.6-10.6 L 3380272026) eGFR (test code = mL/min/1.73m2 1639058548) SNOW (test code = SNOW) Association of [...] tests). Lab Interpretation Abnormal (test code = 83726-9) [facility]HEMOGLOBIN2021-06-21 21:41:20 Test Item Value Reference Range Interpretation Comments HGB (test code = 718-7) 7.4 g/dL 11.6-15.0 L Lab Interpretation (test code = Abnormal 43782-9) [facility] HospitalVITAMIN B12, [id number] 20:39:52 Test Item Value Reference Range Interpretation Comments VIT B12 (test code = 212 pg/mL 240-930 L 0592888747) SNOW (test code = SNOW) Biotin has been reported to cause a positive bias, interpret results relative to patient's use of biotin. 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.[facility]C-REACTIVE [id number] 17:01:56 Test Item Value Reference Range Interpretation Comments CRP (test code = 0292651414) 4.7 mg/dL <0.8 H Lab Interpretation (test code = Abnormal 46661-3) [facility] HospitalVITAMIN D, [id number] 16:43:29 Test Item Value Reference Range Interpretation Comments VIT D 25OH (test code = <13 25-80 L 45668-3) SNOW (test code = SNOW) Deficiency: <20 ng/mLInsufficiency: 20-24 ng/mLOptimal: 25-80 ng/mL Lab Interpretation (test Abnormal code = 11355-6) [facility] HospitalPROCALCITONIN2021-06-21 16:15:30 Test Item Value Reference Range Interpretation Comments Procalcitonin (test 0.08 ng/mL <0.07 H code = 9018283518) SNOW (test code = SNOW) INTERPRETATION OF [...] lung abscess/empyema. For further information please refer to:[email or web address] Lab Interpretation Abnormal (test code = 98745-2) [facility] HospitalOSMOLALITY [id number] 15:35:14 Test Item Value Reference Range Interpretation Comments OSMO U (test code = See_Comment [Automa josemanuel message] 6901985497) The system whic h generated this result transmitted ref erence range: 50-1,100 mOsm/kg. The re ference range was not u sed to interpret this result as normal/abnor mal. Lab Interpretation (test Normal code = 80765-3) [facility] HospitalTROPONIN [id number] 14:04:56 Test Item Value Reference Range Interpretation Comments TROPONIN I (test 0.002 ng/mL See_Comment [Automated code = 6114866296) message] The system which generated this result [...] ? Lab Interpretation Normal (test code = 34236-2) [facility] HospitalCT ABDOMEN PELVIS W [id number] 13:37:17 1. ?Findings concerning for infectious or [...] reviewed this study and agree with theabove report.[facility] WITH [id number] 11:41:25 Test Item Value Reference Range Interpretation Comments WBC (test code = See_Comment L [Automated 5876-2) message] The system which generated this result transmit josemanuel reference range : 4.30 - 11.10 10*3/?L. The reference range was not used to interpret this result as normal/abnormal . RBC (test code = See_Comment L [Automated 509-8) message] The system which generated this result [...] (test code = 52.4 fL 39.0-49.9 H 64913-8) RDW-CV (test code = 18.2 % 12.0-15.5 H 788-0) PLT (test code = See_Comment LL [Automated 777-3) message] The system which generated this result transmit josemanuel reference range : 166 - 358 10*3/ ?L. The reference range was not u sed to interpret th is result as normal/abnormal . MPV (test code = Not Measure d 79738-3) IPF % (test code = 4.3 % 1.3-7.7 Platelet count 4539878034) measured by fluorescence method. NRBC/100 WBC (test See_Comment [Automat ed code = 9602941303) message] The system which generated this result transmit josemanuel reference range : 0.0 - 10.0 /100 WBCs. The reference range was not used to interpret this result as normal/abnormal . NRBC x10^3 (test code <0.01 See_Comment [Auto mated = 6491685145) message] The system which generated this result transmit josemanuel reference range : 10*3/?L. The reference range was not used to interpret this result as normal/abnormal . GRAN MAT (NEUT) % 74.4 % (test code = 770-8) IMM GRAN % (test code 0.50 % = 7734287539) LYMPH % (test code = 10.3 % 736-9) MONO % (test code = 12.3 % 5905-5) EOS % (test code = 2.0 % 713-8) BASO % (test code = 0.5 % 706-2) GRAN MAT x10^3(ANC) 3.02 10*3/uL 1.88-7.09 (test code = 1736271342) IMM GRAN x10^3 (test <0.03 0.00-0.06 code = 2609487708) LYMPH x10^3 (test 0.42 10*3/uL 1.32-3.29 L code = 731-0) MONO x10^3 (test code 0.50 10*3/uL 0.33-0.92 = 742-7) EOS x10^3 (test code 0.08 10*3/uL 0.03-0.39 = 711-2) BASO x10^3 (test code <0.03 0.01-0.07 = 704-7) PLT ESTIMATE (test Decreased Normal A code = 9317-9) SNOW (test code = SNOW) CBC smear reduced platelet Lab Interpretation Abnormal (test code = 51442-4) [facility] HospitalN-TERMINAL [id number] 11:07:24 Test Item Value Reference Range Interpretation Comments NT-proBNP (test code 79 pg/mL See_Comment [Autom ated = 1466181389) message] The system which generated this result transmitted reference range : <=125. The reference range was not used to interpret this result as normal/abnormal . SNOW (test code = SNOW) Biotin has been reported to cause a negative bias, interpret results relative to patient's use of biotin. Lab Interpretation Normal (test code = 78991-2) [facility] HospitalIRON [id number] 11:04:41 Test Item Value Reference Range Interpretation Comments IRON (test code = 2262797780) 31 ug/dL 50-160 L TIBC (test code = 0912865188) 295 ug/dL 250-410 % FE SAT (test code = 5553854714) 11 % 20-50 L Lab Interpretation (test code = Abnormal 00291-3) [facility] HospitalPROTEIN CREAT RATIO URINE [id number] 10:57:19 Test Item Value Reference Range Interpretation Comments T. PROT U (test code = 2888-6) 9 mg/dL CREAT U (test code = 4114528540) 187.5 mg/dL Protein/Creatinine Ratio Urine 0.0-2.0 (test code = 6180177952) [facility] HospitalSODIUM, URINE [id number] 10:53:21 Test Item Value Reference Range Interpretation Comments NA URINE (test code = 9617051118) 30 mmol/L [facility] HospitalSEDIMENTATION [id number] 10:33:04 Test Item Value Reference Range Interpretation Comments ESR (test code = See_Comment [Automated message] 7515180985) The system [employer] generated this result transmitted ref erence range: 0 - 20 m m/HR. The reference r davi was not used to interpret this result as normal/abnor mal. Lab Interpretation (test Normal code = 30598-8) [facility] HospitalPROTHROMBIN TIME / [id number] 09:43:39 Test Item Value Reference Range Interpretation Comments PROTIME PATIENT (test See_Comment H [Auto mated message] code = 5964-2) The system [employer] generated this result transmitted ref erence range: 12.0 - 1 4.7 Seconds. The reference range was not used to int erpret this result as normal/abnormal . INR (test code = 6301-6) Nor mal INR <1.1; Warfarin Therap eutic range 2.0 to 3. 0 or 2.5 to 3.5, dep ending upon the indica tions. Lab Interpretation (test Abnormal code = 56199-8) [facility] HospitalLactic Acid Whole [id number] 08:42:38 Test Item Value Reference Range Interpretation Comments LACTIC ACID (test code = 1.47 mmol/L 0.50-2.20 9668178193) Lab Interpretation (test code = Normal 96401-1) [facility] HospitalFERRITIN [id number] 07:31:09 Test Item Value Reference Range Interpretation Comments FERRITIN (test code = 12.2 ng/mL 11.0-264.0 5185103739) SNOW (test code = SNOW) Biotin has been reported to cause a negative bias, interpret results relative to patient's use of biotin. Lab Interpretation (test Normal code = 71116-7) [facility] HospitalTHYROID STIMULATING [id number] 07:27:08 Test Item Value Reference Range Interpretation Comments TSH (test code = See_Comment [Automated message] 9284812469) The system [employer] generated this result transmitted ref erence range: 0.45 - 4 .70 mIU/L. The refe rence range was not u sed to interpret this result as normal/abnor mal. Lab Interpretation (test Normal code = 38349-4) [facility] HospitalGLYCOSYLATED HEMOGLOBIN (A1C)2020-09-29 07:05:40 Test Item Value Reference Range Interpretation Comments HGB A1C (test code = 5.0 % 4.0-5.7 4548-4) SNOW (test code = SNOW) Reference RangesNormal: <5.7%Prediabetes: 5.7 - 6.4%Diabetes: > 6.5% Lab Interpretation (test Normal code = 33226-7) [facility] HospitalURIC [id number] 07:05:35 Test Item Value Reference Range Interpretation Comments URIC ACID (test code = 2683294715) 4.2 mg/dL 2.9-6.0 Lab Interpretation (test code = Normal 23221-0) [facility] HospitalCREATINE [id number] 07:05:30 Test Item Value Reference Range Interpretation Comments CK (test code = 3741016969) 192 U/L 33-194 Lab Interpretation (test code = Normal 79513-5) [facility] HospitalN-TERMINAL [id number] 07:05:30 Test Item Value Reference Range Interpretation Comments NT-proBNP (test code 94 pg/mL See_Comment [Autom ated = 5272243589) message] The system which generated this result transmitted reference range : <=125. The reference range was not used to interpret this result as normal/abnormal . SNOW (test code = SNOW) Biotin has been reported to cause a negative bias, interpret results relative to patient's use of biotin. Lab Interpretation Normal (test code = 93930-5) [facility] HospitalMAGNESIUM2021-06-21 07:04:24 Test Item Value Reference Range Interpretation Comments MAGNESIUM (test code = 9797166430) 1.8 mg/dL 1.7-2.4 Lab Interpretation (test code = Normal 10148-0) [facility] HospitalPHOSPHORUS2021-06-21 07:03:39 Test Item Value Reference Range Interpretation Comments PHOSPHORUS (test code = 6122733627) 2.2 mg/dL 2.5-5.0 L Lab Interpretation (test code = Abnormal 60910-2) [facility] HospitalLIPID PANEL (37394)(TOTAL CHOLESTEROL, TRIGLYCERIDES, HDL)2020-09-29 06:56:06 Test Item Value Reference Range Interpretation Comments CHOL (test code = 132 mg/dL 120-200 0218497045) HDL (test code = 41 mg/dL >50 L 0056372610) HDLC RATIO (test code = See_Comment [Au tomated message] 6400922978) The system [employer] generated this result transmit josemanuel reference range : <=4.5. The refe rence range was not u sed to interpret th is result as normal/abnormal . TRIG (test code = 73 mg/dL 30-170 8052878444) LDL CHOL (test code = 76 mg/dL See_Comment [Auto mated message] 47176-8) The system [employer] generated this result transmit josemanuel reference range : <=160. The refe rence range was not u sed to interpret th is result as normal/abnormal . VLDL (test code = 15 mg/dL 5-60 0706882329) Lab Interpretation (test Abnormal code = 44348-5) [facility] HospitalCOVID-19 (ID NOW RAPID TESTING)2020-09-29 06:24:26 Test Item Value Reference Range Interpretation Comments SARS-CoV-2 Rapid ID NOW Not Detected Not Detected (test code = 32377-2) SNOW (test code = SNOW) ID NOW COVID-19 Assay is an isothermal nucleic acid amplification test intended for the qualitative detection of nucleic acid from SARS-CoV-2 viral RNA in nasopharyngeal ([employer]) specimens. It is used under Emergency Use [...] indicated. Lab Interpretation Normal (test code = 18755-7) [facility] HospitalURINALYSIS2021-06-21 04:43:31 Test Item Value Reference Range Interpretation Comments APPEARANCE (test code = Clear Clear 3211062471) COLOR (test code = Rosanne Yellow A 5177998240) PH (test code = 4.8-8.0 9866783888) SP GRAVITY (test code = 1.003-1.030 2471469424) GLU U QUAL (test code = Normal Normal 8757962150) BLOOD (test code = Negative Negative 6315592749) KETONES (test code = Negative Negative 7289340562) PROTEIN (test code = 30 mg/dL Negative A 2887-8) UROBILIN (test code = Normal Normal 4576814809) BILIRUBIN (test code = Negative Negative 4044132096) NITRITE (test code = Negative Negative 1125613811) LEUK RANULFO (test code = 25/uL Negative A 5442680156) RBC/HPF (test code = See_Comment [Autom ated message] 2202384441) The system [employer] generated this result transmitted ref erence range: 0 - 3 HP F. The reference range was not used to int erpret this result as normal/abnormal . WBC/HPF (test code = See_Comment [Autom ated message] 2107410209) The system [employer] generated this result transmitted ref erence range: 0 - 5 HP F. The reference range was not used to int erpret this result as normal/abnormal . BACTERIA (test code = Few Negative A 1746261917) MUCOUS (test code = Moderate Negative LPF A 2505078874) SQ EPITH (test code = HPF 5782608206) Lab Interpretation (test Abnormal code = 97517-5) [facility] WITH [id number] 04:39:35 Test Item Value Reference Range Interpretation Comments WBC (test code = See_Comment [Automated 5790-2) message] The system which generated this result transmit josemanuel reference range : 4.30 - 11.10 10*3/?L. The reference range was not used to interpret this result as normal/abnormal . RBC (test code = See_Comment L [Automated 479-8) message] The system which generated this result [...] (test code = 51.3 fL 39.0-49.9 H 20055-8) RDW-CV (test code = 18.1 % 12.0-15.5 H 788-0) PLT (test code = See_Comment L [Automated 777-3) message] The system which generated this result transmit josemanuel reference range : 166 - 358 10*3/ ?L. The reference range was not u sed to interpret th is result as normal/abnormal . MPV (test code = 11.1 fL 9.5-12.9 17818-1) IPF % (test code = 3.7 % 1.3-7.7 Platelet count 4618402472) measured by fluorescence method. NRBC/100 WBC (test See_Comment [Automat ed code = 6149663613) message] The system which generated this result transmit josemanuel reference range : 0.0 - 10.0 /100 WBCs. The reference range was not used to interpret this result as normal/abnormal . NRBC x10^3 (test code <0.01 See_Comment [Auto mated = 0550144695) message] The system which generated this result transmit josemanuel reference range : 10*3/?L. The reference range was not used to interpret this result as normal/abnormal . GRAN MAT (NEUT) % 76.4 % (test code = 770-8) IMM GRAN % (test code 0.80 % = 6111408293) LYMPH % (test code = 9.4 % 736-9) MONO % (test code = 11.3 % 5905-5) EOS % (test code = 1.5 % 713-8) BASO % (test code = 0.6 % 706-2) GRAN MAT x10^3(ANC) 4.07 10*3/uL 1.88-7.09 (test code = 2982614787) IMM GRAN x10^3 (test 0.04 10*3/uL 0.00-0.06 code = 2880525668) LYMPH x10^3 (test 0.50 10*3/uL 1.32-3.29 L code = 731-0) MONO x10^3 (test code 0.60 10*3/uL 0.33-0.92 = 742-7) EOS x10^3 (test code 0.08 10*3/uL 0.03-0.39 = 711-2) BASO x10^3 (test code 0.03 10*3/uL 0.01-0.07 = 704-7) PLT ESTIMATE (test Decreased Normal A code = 9317-9) SNOW (test code = SNOW) Juan slide adgrees to decreased Platelet Lab Interpretation Abnormal (test code = 78395-2) [facility]. METABOLIC PANEL (80209)2020-09-29 04:25:42 Test Item Value Reference Range Interpretation Comments NA (test code = 134 mmol/L 135-145 L 6608050872) K (test code = 3.2 mmol/L 3.5-5.0 L 8765845079) CL (test code = 104 mmol/L 98-108 9416189468) CO2 TOTAL (test code = 24 mmol/L 23-31 6865637871) AGAP (test code = 2-16 5931700911) BUN (test code = 8 mg/dL 7-23 4109885485) GLUCOSE (test code = 105 mg/dL 70-110 6049658757) CREATININE (test code = 0.51 mg/dL 0.50-1.04 0889061277) TOTAL BILI (test code = 2.5 mg/dL 0.1-1.1 H 2534146913) CALCIUM (test code = 8.2 mg/dL 8.6-10.6 L 2758967143) T PROTEIN (test code = 6.3 g/dL 6.3-8.2 7985727101) ALBUMIN (test code = 3.1 g/dL 3.5-5.0 L 9211499480) ALK PHOS (test code = 136 U/L 34-122 H 1266958274) ALTv (test code = 24 U/L 5-35 1742-6) AST(SGOT) (test code = 30 U/L 13-40 6928168572) eGFR (test code = mL/min/1.73m2 6538345610) SNOW (test code = SNOW) Association of [...] tests). Lab Interpretation Abnormal (test code = 51787-5) [facility] HospitalLIPASE2021-06-21 04:25:42 Test Item Value Reference Range Interpretation Comments LIPASE (test code = 3956882461) 102 U/L 0-220 Lab Interpretation (test code = Normal 83485-9) [facility] HospitalSARS-CoV-2 (COVID-19) RNA [Presence] in Respiratory specimen by HELENA with probe [id number] 00:49:19 Test Item Value Reference Range Interpretation Comments SARS-CoV-2 (COVID-19) RNA Not detected Not-Detected [Presence] in Respiratory specimen by HELENA with probe detection (test code = 28244-8) 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 employed 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 healthcare 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 (test code = 99873-7) Whether the patient has symptoms related to condition of interest (test code = 44601-0) Patient was hospitalized because of this condition (test code = 63186-6) Whether the patient was admitted to intensive care unit (ICU) for condition of interest (test code = 31626-4) Whether patient resides in a congregate care setting (test code = 51000-0) SARS-CoV-2 (COVID-19) RNA [Presence] in Respiratory specimen by HELENA with probe [id number] 02:47:43 Test Item Value Reference Range Interpretation Comments SARS-CoV-2 (COVID-19) RNA Not detected Not-Detected [Presence] in Respiratory specimen by HELENA with probe detection (test code = 71920-3) SARS-CoV-2 (COVID-19) RNA [Presence] in Respiratory specimen by HELENA with probe [id number] 16:32:37 Test Item Value Reference Range Interpretation Comments SARS-CoV-2 (COVID-19) RNA Not detected Not-Detected [Presence] in Respiratory specimen by HELENA with probe detection (test code = 79127-2) SARS-CoV-2 (COVID-19) RNA [Presence] in Respiratory specimen by HELENA with probe zrbnwchvq4021-22-77 05:29:57 Test Item Value Reference Range Interpretation Comments SARS-CoV-2 (COVID-19) RNA Not detected Not-Detected [Presence] in Respiratory specimen by HELENA with probe detection (test code = 98674-1) CT ABDOMEN PELVIS W [id number] 19:27:49 1. ?No evidence of small bowel [...] reviewed this study and agree with the abovereport.[facility] WITH [id number] 11:56:00 Test Item Value Reference Range Interpretation [...] (test code = 58.0 fL 39-49.9 H 42779-4) RDW-CV (test code = 16.6 % 12-15.5 H 788-0) PLT (test code = See_Comment LL [Automated 777-3) message] The sy stem which generated this result transmitted reference range : 166 - 358 10*3/ ?L. The reference r davi was not used to interpret this result as normal/abnormal . MPV (test code = 11.0 fL 9.5-12.9 56453-4) IPF % (test code = 5.5 % 1.3-7.7 Platelet count 5358256443) measured by fluorescence method. NRBC/100 WBC (test See_Comment [Automat ed code = 5889105304) message] The system which generated this result transmitted reference range : 0.0 - 10.0 /100 WBCs. The refer ence range was not u sed to interpret th is result as normal/abnormal . NRBC x10^3 (test code <0.01 See_Comment [Auto mated = 0787980733) message] The s ystem which generated this result transmitted reference range : 10*3/?L. The reference range was not used to interpret this result as normal/abnormal . GRAN MAT (NEUT) % 57.6 % (test code = 770-8) IMM GRAN % (test code 0.00 % = 5534257093) LYMPH % (test code = 27.1 % 736-9) MONO % (test code = 11.8 % 5905-5) EOS % (test code = 3.1 % 713-8) BASO % (test code = 0.4 % 706-2) GRAN MAT x10^3(ANC) 1.47 10*3/uL 1.88-7.09 L (test code = 4702588738) IMM GRAN x10^3 (test <0.03 0-0.06 code = 3789143559) LYMPH x10^3 (test code 0.69 10*3/uL 1.32-3.29 L = 731-0) MONO x10^3 (test code 0.30 10*3/uL 0.33-0.92 L = 742-7) EOS x10^3 (test code = 0.08 10*3/uL 0.03-0.39 711-2) BASO x10^3 (test code <0.03 0.01-0.07 = 704-7) Lab Interpretation Abnormal (test code = 34014-4) [facility] HospitalCOMP. METABOLIC PANEL (08815)2019-08-11 10:42:00 Test Item Value Reference Range Interpretation Comments NA (test code = 138 mmol/L 135-145 4455364619) K (test code = 3.8 mmol/L 3.5-5 5131458386) CL (test code = 108 mmol/L 98-108 0243641945) CO2 TOTAL (test code = 24 mmol/L 23-31 8493791552) AGAP (test code = 2-16 4460147040) BUN (test code = 10 mg/dL 7-23 9718017837) GLUCOSE (test code = 108 mg/dL 70-110 6108637397) CREATININE (test code = 0.43 mg/dL 0.5-1.04 L 0877162251) TOTAL BILI (test code = 2.5 mg/dL 0.1-1.1 H 5368506445) CALCIUM (test code = 8.4 mg/dL 8.6-10.6 L 1231249055) T PROTEIN (test code = 6.1 g/dL 6.3-8.2 L 8141070593) ALBUMIN (test code = 3.1 g/dL 3.5-5 L 9396581341) ALK PHOS (test code = 102 U/L 34-122 0470025589) ALTv (test code = 52 U/L 5-35 H 1742-6) AST(SGOT) (test code = 63 U/L 13-40 H 3435272262) eGFR Calculation mL/min/1.73m2 (Non-) (test code = 2466207404) eGFR Calculation mL/min/1.73m2 () (test code = 3776715593) SNOW (test code = SNOW) Association of [...] tests). Lab Interpretation Abnormal (test code = 72118-3) [facility] HospitalXR SMALL BOWEL [id number] 02:08:11 1. ?No bowel obstruction. No fluoroscopic images or fluoroscopic time. RL 6200 HISTORY: ?Abdominal pain COMPARISON: ?None FINDINGS: There is a nonobstructive bowel gas pattern. Contrast is seen throughoutthe entire small bowel and colon. Nodilated loops of bowel demonstrated. [facility], Radiant Results Inft User - 08/10/2019 9:09 PM CDTHISTORY: Abdominal painCOMPARISON: NoneFINDINGS:There is a nonobstructive bowel gas pattern. Contrast is seen throughoutthe entire small bowel and colon. No dilated loops of bowel demonstrated.IMPRESSION1.No bowel obstruction.No fluoroscopic images or fluoroscopic time.RL 6200 [facility]burgSEDIMENTATION [id number] 16:19:00 Test Item Value Reference Range Interpretation Comments ESR (test code = See_Comment [Automated message] 4223218094) The system [employer] generated this result transmitted ref erence range: 0 - 20 m m/HR. The reference r davi was not used to interpret this result as normal/abnor mal. Lab Interpretation (test Normal code = 16897-7) [facility] [facility] - To confirm nasogastric [...] system. No acute bony abnormalities are noted. [facility], Radiant Results Inft User - 08/10/2019 10:25 [...] reviewed this study and agree with the abovereport.[facility] WITH [id number] 13:48:00 Test Item Value Reference Range Interpretation [...] (test code = 58.4 fL 39-49.9 H 92510-6) RDW-CV (test code = 16.7 % 12-15.5 H 788-0) PLT (test code = See_Comment LL [Automated 777-3) message] The system which generated this result transmit josemanuel reference range : 166 - 358 10*3/ ?L. The reference range was not u sed to interpret th is result as normal/abnormal . MPV (test code = 10.5 fL 9.5-12.9 13074-9) IPF % (test code = 3.0 % 1.3-7.7 Platelet count 0683568470) measured by fluorescence method. NRBC/100 WBC (test See_Comment [Automat ed code = 5115869042) message] The system which generated this result transmit josemanuel reference range : 0.0 - 10.0 /100 WBCs. The reference range was not used to interpret this result as normal/abnormal . NRBC x10^3 (test code <0.01 See_Comment [Auto mated = 6019531050) message] The system which generated this result transmit josemanuel reference range : 10*3/?L. The reference range was not used to interpret this result as normal/abnormal . GRAN MAT (NEUT) % 57.1 % (test code = 770-8) IMM GRAN % (test code 0.40 % = 1060747210) LYMPH % (test code = 28.1 % 736-9) MONO % (test code = 10.4 % 5905-5) EOS % (test code = 3.6 % 713-8) BASO % (test code = 0.4 % 706-2) GRAN MAT x10^3(ANC) 1.42 10*3/uL 1.88-7.09 L (test code = 2685005314) IMM GRAN x10^3 (test <0.03 0-0.06 code = 4383903186) LYMPH x10^3 (test 0.70 10*3/uL 1.32-3.29 L code = 731-0) MONO x10^3 (test code 0.26 10*3/uL 0.33-0.92 L = 742-7) EOS x10^3 (test code 0.09 10*3/uL 0.03-0.39 = 711-2) BASO x10^3 (test code <0.03 0.01-0.07 = 704-7) PLT ESTIMATE (test Critically Normal AA code = 9317-9) Decreased Lab Interpretation Abnormal (test code = 33324-5) [facility]A1C)2019-08-10 13:13:00 Test Item Value [...] Indicated Lab Interpretation Normal (test code = 54007-3) [facility] HospitalTHY[facility]ID STIMULATING [id number] 13:05:00 Test Item Value Reference Range Interpretation Comments TSH (test code = See_Comment [Automated message] 7894326998) The system [employer] generated this result transmitted ref erence range: 0.45 - 4 .70 mIU/L. The refe rence range was not u sed to interpret this result as normal/abnor mal. Lab Interpretation (test Normal code = 43472-0) [facility] TEST, [id number] 13:04:00 Test Item Value Reference Range Interpretation Comments PREG SERUM (test code Negative = 2995056736) SNOW (test code = SNOW) Less than 10 IU/L. ?If low titer or ectopic is suspected, resubmit specimen in 48-72 hours. [facility] HospitalLIPID PANEL (02128)(TOTAL CHOLESTEROL, TRIGLYCERIDES, HDL)2019-08-10 12:36:00 Test Item Value Reference Range Interpretation Comments CHOL (test code = 158 mg/dL 120-200 4744908939) HDL (test code = 47 mg/dL >50 L 6239667494) HDLC RATIO (test code = See_Comment [Au tomated message] 1335016116) The system [employer] generated this result transmit josemanuel reference range : <=4.5. The refe rence range was not u sed to interpret th is result as normal/abnormal . TRIG (test code = 51 mg/dL 30-170 3118434384) LDL CHOL (test code = 101 mg/dL See_Comment [Auto mated message] 22521-5) The system [employer] generated this result transmit josemanuel reference range : <=160. The refe rence range was not u sed to interpret th is result as normal/abnormal . VLDL (test code = 10 mg/dL 5-60 7863423615) Lab Interpretation (test Abnormal code = 30391-2) [facility] HospitalCOMP. METABOLIC PANEL (01880)2019-08-10 12:35:00 Test Item Value Reference Range Interpretation Comments NA (test code = 139 mmol/L 135-145 6278997238) K (test code = 3.9 mmol/L 3.5-5 2852229781) CL (test code = 109 mmol/L 98-108 H 3820443265) CO2 TOTAL (test code = 25 mmol/L 23-31 3553861118) AGAP (test code = 2-16 8016950614) BUN (test code = 15 mg/dL 7-23 5716608763) GLUCOSE (test code = 218 mg/dL 70-110 H 2952162397) CREATININE (test code = 0.40 mg/dL 0.5-1.04 L 7405538872) TOTAL BILI (test code = 2.0 mg/dL 0.1-1.1 H 8916212335) CALCIUM (test code = 8.5 mg/dL 8.6-10.6 L 2441786105) T PROTEIN (test code = 6.2 g/dL 6.3-8.2 L 1516367902) ALBUMIN (test code = 3.1 g/dL 3.5-5 L 7095183131) ALK PHOS (test code = 99 U/L 34-122 4895513742) ALTv (test code = 42 U/L 5-35 H 1742-6) AST(SGOT) (test code = 49 U/L 13-40 H 7683293987) eGFR Calculation mL/min/1.73m2 (Non-) (test code = 7517851744) eGFR Calculation mL/min/1.73m2 () (test code = 1028972275) SNOW (test code = SNOW) Association of [...] tests). Lab Interpretation Abnormal (test code = 59769-4) [facility]MAG[facility]2020-05-01 12:35:00 Test Item Value Reference Range Interpretation Comments MAGNESIUM (test code = 8787313215) 1.6 mg/dL 1.7-2.4 L Lab Interpretation (test code = Abnormal 66907-9) [facility]PHOSPHORUS2020-05-01 12:35:00 Test Item Value Reference Range Interpretation Comments PHOSPHORUS (test code = 7799470305) 3.6 mg/dL 2.5-5 Lab Interpretation (test code = Normal 77467-5) [facility] HospitalCREATINE [id number] 12:35:00 Test Item Value Reference Range Interpretation Comments CK (test code = 4612182616) 123 U/L 33-194 Lab Interpretation (test code = Normal 03389-0) [facility] HospitalLIPASE2020-05-01 12:35:00 Test Item Value Reference Range Interpretation Comments LIPASE (test code = 6488142347) 141 U/L 0-220 Lab Interpretation (test code = Normal 22738-0) [facility] HospitalAMYLASE2020-05-01 12:34:00 Test Item Value Reference Range Interpretation Comments LIN (test code = 0921556091) 73 U/L 35-110 Lab Interpretation (test code = Normal 95812-2) [facility] HospitalPROTHROMBIN TIME / [id number] 12:07:00 Test Item Value Reference Range Interpretation Comments PROTIME PATIENT (test See_Comment H [Auto mated message] code = 5964-2) The system [employer] generated this result transmitted ref erence range: 12.0 - 1 4.7 Seconds. The reference range was not used to int erpret this result as normal/abnormal . INR (test code = 6301-6) Nor mal INR <1.1; Warfarin Therap eutic range 2.0 to 3. 0 or 2.5 to 3.5, dep ending upon the indica tions. Lab Interpretation (test Abnormal code = 85833-5) [facility] HospitalCORONAVIRUS COVID-19 [id number] 10:18:00 Test Item Value Reference Range Interpretation Comments SARS-CoV-2 (test code = Not Detected Not Detected 06762-2) SNOW (test code = SNOW) ID NOW COVID-19 Assay is an isothermal nucleic acid amplification test intended for the qualitative detection of nucleic acid from SARS-CoV-2 viral RNA in nasopharyngeal ([employer]) specimens. It is used under Emergency Use [...] indicated. Lab Interpretation Normal (test code = 57512-3) [facility] HospitalRAD, CHEST, 1 VIEW, NON [id number] 07:50:00Reason for exam:->SOBShould this be performed at the bedside?->Yes FINAL REPORT CLINICAL HISTORY: SOB TECHNIQUE: 1 view of the chest. COMPARISON: None IMPRESSION: There is pulmonary vascular congestion with prominent lung markings bilaterally. Subpulmonic pleural effusions cannot be excluded. The cardiomediastinal silhouette is magnified by technique. Signed: [facility] Hospital[facility] Verified Date/Time: 10/03/2018 07:50:47 Reading Location: [facility] Radiology Reading Room [id number] 07:37:00 Test Item Value Reference Range Interpretation Comments MAGNESIUM (BEAKER) (test code = 1.6 mg/dL 1.6-2.6 627) BASIC METABOLIC [id number] 07:37:00 Test Item Value Reference Range Interpretation [...] DIALYSIS PATIEN TS. Specimen slightly ictericHEPATIC FUNCTION [id number] 07:37:00 Test Item Value Reference Range Interpretation [...] 35 U/L 6-55 347) Specimen slightly ictericPROTHROMBIN TIME/[id number] 06:25:00 Test Item Value Reference Range Interpretation [...] mechanical heart valves.CBC W/PLT COUNT & AUTO [id number] 06:16:00 Test Item Value Reference Range Interpretation [...] = 3438) Received comment: User comments: Slide comments:[id number] 05:58:00 Test Item Value Reference Range Interpretation Comments MAGNESIUM (BEAKER) (test code = 1.6 mg/dL 1.6-2.6 627) BASIC METABOLIC [id number] 05:58:00 Test Item Value Reference Range Interpretation [...] DIALYSIS PATIEN TS. Specimen slightly ictericHEPATIC FUNCTION [id number] 05:58:00 Test Item Value Reference Range Interpretation [...] 39 U/L 6-55 347) Specimen slightly ictericPROTHROMBIN [id number] 05:26:00 Test Item Value Reference Range Interpretation [...] mechanical heart valves.CBC W/PLT COUNT & AUTO [id number] 05:20:00 Test Item Value Reference Range Interpretation [...] WBC 0-0 (test code = 413) VITAMIN [id number] 06:57:00 Test Item Value Reference Range Interpretation Comments VITAMIN B12 (BEAKER) (test code = 178 pg/mL 213-816 L 774) [id number] 06:57:00 Test Item Value Reference Range Interpretation Comments FERRITIN (BEAKER) (test code = 361) 21 ng/mL 5-275 FOLATE, [id number] 06:57:00 Test Item Value Reference Range Interpretation [...] 28 % 20-55 (test code = 2590) [id number] 05:59:00 Test Item Value Reference Range Interpretation Comments MAGNESIUM (BEAKER) (test code = 1.7 mg/dL 1.6-2.6 627) BASIC METABOLIC [id number] 05:59:00 Test Item Value Reference Range Interpretation [...] FOR DIALYSIS PATIEN TS. Specimen slightly ictericLIPID [id number] 05:59:00 Test Item Value Reference Range Interpretation [...] Very High >=190 Specimen slightly ictericHEPATIC FUNCTION [id number] 05:59:00 Test Item Value Reference Range Interpretation [...] = 41 U/L 6-55 347) Specimen slightly [id number] 05:59:00 Test Item Value Reference Range Interpretation Comments LIPASE (BEAKER) (test code = 749) 35 U/L 8-78 Specimen slightly ictericPROTHROMBIN [id number] 05:58:00 Test Item Value Reference Range Interpretation [...] mechanical heart valves.CBC W/PLT COUNT & AUTO [id number] 05:37:00 Test Item Value Reference Range Interpretation [...] PERCENT (BEAKER) (test code = 2801) POCT-HEMOGLOBIN [id number] 06:12:00 Test Item Value Reference Range Interpretation Comments POC-HEMOGLOBIN METER 8.6 g/dL 12.0-15.0 L TESTED AT [facility] ([facility]) (test code = [place] [address] 1539)"
[2021-09-24] MEDS ORDERED: FAMOTIDINE 20 MG/2 ML VIAL IV ONE (18:07)
[2021-09-24] MEDS ORDERED: FENTANYL CITR 100 MCG/2 ML ONE ×2 (18:07→21:23)
[2021-09-24] MEDS ORDERED: NA CHLORIDE 0.9% 1,000 ML ONE (18:07)
[2021-09-24 18:25] LABS: Albumin 2.9 g/dL (3.4-5.0); Bilirubin Total 1.8 mg/dL (0.2-1.0); Potassium 3.7 mmol/L (3.5-5.1); Protein, Total 6.5 g/dL (6.4-8.2)
[2021-09-24 18:36] LABS: Absolute Lymphocytes (CBC) 0.6 K/uL (0.7-4.9); Hematocrit 31.6 % (36.0-45.0); Lymphocytes % 21.8 % (15.3-44.8); MPV 8.5 fL (7.6-11.3); RBC Red Blood Cell Count 3.71 M/uL (3.86-4.86)
[2021-09-24 19:36] LABS: Anisocytosis 1+; Blood Morphology Comment NOTED (NOT SEEN); Platelet Estimate DECR; White Blood Cell Scan OK (OK)
--- NOTE | 2021-09-24 19:47 | RAD REPORT ---
EXAM DESCRIPTION: CTAbdomen Pelvis Wo Contrast - 09/24/2021 7:33 pm CLINICAL HISTORY: abdominal pain COMPARISON: Abdomen Pelvis Wo Contrast dated 03/30/2021; Abdomen Pelvis W Contrast dated 021; Abdomen Pelvis W Contrast dated 01/01/2021; Abdomen Pelvis W Contrast dated 09/27/2020 TECHNIQUE: CT of the abdomen and pelvis was performed. All CT scans are performed using dose optimization technique as appropriate and may include automated exposure control or mA/KV adjustment according to patient size. FINDINGS: Lower chest: No acute abnormality. Liver: Cirrhosis. Biliary: No biliary ductal dilatation. Cholecystectomy. Stomach: No significant focal abnormality. Duodenum: No significant focal abnormality. Pancreas: No significant abnormality. Spleen: Calcified splenic artery aneurysm. The spleen is enlarged measuring 20 cm. Adrenal: No suspicious lesions. Kidney/ureter: No hydronephrosis. Punctate stone in the right kidney. Retroperitoneum: No retroperitoneal adenopathy. Vascular: No aneurysm. Bowel: No significant focal abnormality. Peritoneum: Small volume of ascites. Bladder: Grossly unremarkable. Reproductive: No adnexal masses. Bones: No acute fracture. Other: n/a IMPRESSION: No acute intra-abdominal or pelvic finding. Cirrhosis with evidence portal hypertension including splenomegaly and small volume of ascites.
[2021-09-24 20:37] LABS: Albumin 2.9 g/dL (3.4-5.0); Bilirubin Direct 0.6 mg/dL (0-0.2); Bilirubin Total 1.8 mg/dL (0.2-1.0); Potassium 3.7 mmol/L (3.5-5.1); Protein, Total 6.4 g/dL (6.4-8.2); Troponin High Sensitivity 7.6 pg/mL (<58.9)
--- NOTE | 2021-09-24 20:48 | RAD REPORT ---
EXAM DESCRIPTION: RAD - Chest Single View - 09/24/2021 8:26 pm CLINICAL HISTORY: COUGH COMPARISON: Chest Single View dated 07/05/2021; Chest Single View dated 01/01/2021; Chest Single View dated 09/27/2020; Chest Single View dated 08/31/2020; Abdomen Pelvis Wo Contrast dated 09/24/2021 FINDINGS: Lines: None. Lungs: Diffuse coarsening of the interstitium which is similar to 07/05/2021 . . Pleural: No significant pleural effusions or pneumothorax. Cardiac: The heart size is within normal limits. Bones: No acute fractures. Other: IMPRESSION: Diffuse prominence of the pulmonary interstitium is similar to 07/05/2021. This may refl ect vascular congestion without evidence of alveolar edema or consolidative airspace disease.
[2021-09-24] MEDS ORDERED: ONDANSETRON 4 MG/2 ML VIAL ONE (21:23)
[2021-09-24 21:30] LABS: Protime INR 1.26
--- NOTE | 2021-09-24 21:37 | ER ---
Nurse's Notes [facility] Name: Zenaida Goss Age: 61 yrs Sex: Female : 1960 Arrival Date: 09/24/2021 Time: 17:12 Bed 8 Private MD: Diagnosis: Abdominal pain, Generalized;Other cirrhosis of liver-ANAYA;Obesity, unspecified;Secondary thrombocytopenia-Cirrhosis;Neutropenia, unspecified-Cirrhosis;Encephalopathy, unspecified-Hepatic Presentation: 09/24 17:22 Chief complaint: Patient states: abd pain x 2 days ago, reports hx of pancreatitis. aa5 Coronavirus screen: At this time, the client does not indicate any symptoms associated with coronavirus-19. Ebola Screen: Patient denies travel to an Ebola-affected area in the 21 days before illness onset. Initial Sepsis Screen: Does the patient meet any 2 criteria? No. Patient's initial sepsis screen is negative. Does the patient have a suspected source of infection? No. Patient's initial sepsis screen is negative. Risk Assessment: Do you want to hurt yourself or someone else? Patient reports no desire to harm self or others. Onset of symptoms was September 2021. 17:22 Method Of Arrival: Ambulatory aa5 17:22 Acuity: TANK 3 aa5 Historical: - Allergies: 17:24 Dilaudid; aa5 17:24 Morphine (Anaphylaxis); aa5 - PMHx: 17:24 Anemia; breast cancer; Cirrhosis; fatty liver; Pancreatitis; varices; Heart murmur; aa5 - PSHx: 17:24 Appendectomy; Cholecystectomy; Lumpectomy of breast; Total abdominal hysterectomy; aa5 - Immunization history:: Adult Immunizations up to date, Client reports receiving the 2nd dose of the Covid vaccine. - Social history:: Smoking status: Patient denies any tobacco usage or history of. Screenin:34 Abuse screen: Denies threats or abuse. Nutritional screening: No deficits noted. [facility] Tuberculosis screening: No symptoms or risk factors identified. Fall Risk Gait- Impaired (20 pts.). Assessment: 17:34 General: Appears in no apparent distress. Behavior is calm, cooperative. Pain: 6 Complains of pain in diaphragm Pain currently is 8 out of 10 on a pain scale. Quality of pain is described as crampy, sharp, gnawing, Pain began suddenly. GI: Abdomen is round obese, Bowel sounds present X 4 quads. Abdomen is tender to palpation in epigastric area, right upper quadrant and left upper quadrant. 20:28 General: Appears in no apparent distress. comfortable, Behavior is calm, cooperative. lg3 Pain: Complains of pain in epigastric area and diaphragm Pain currently is 4 out of 10 on a pain scale. Neuro: No deficits noted. Mahajan Agitation-Sedation Scale (RASS): 0 - Alert and Calm Level of Consciousness is awake, alert, obeys commands, Oriented to person, place, time, situation. Cardiovascular: No deficits noted. Denies chest pain, shortness of breath, Capillary refill < 3 seconds Clubbing of nail beds is absent JVD is absent Patient's skin is warm and dry. Respiratory: No deficits noted. Airway is patent Trachea midline Respiratory effort is even, unlabored, Respiratory pattern is regular, symmetrical. GI: Abdomen is round obese, Bowel sounds present X 4 quads. : No deficits noted. No signs and/or symptoms were reported regarding the genitourinary system. EENT: No deficits noted. No signs and/or symptoms were reported regarding the EENT system. Derm: No deficits noted. No signs and/or symptoms reported regarding the dermatologic system. Skin is intact, is healthy with good turgor, Skin is dry, Skin temperature is warm. Musculoskeletal: No deficits noted. No signs and/or symptoms reported regarding the musculoskeletal system. Circulation, motion, and sensation intact. Range of motion: intact in all extremities. 21:37 Reassessment: Patient appears in no apparent distress at this time. No changes from lg3 previously documented assessment. Patient and/or family updated on plan of care and expected duration. Pain level reassessed. Patient is alert, oriented x 3, equal unlabored respirations, skin warm/dry/pink. 22:13 Reassessment: Patient states feeling better. Patient states symptoms have improved. tw5 Vital Signs: 17:22 BP 132 / 69; Pulse 90; Resp 18 S; Temp 98.3(O); Pulse Ox 99% on R/A; Weight 120.2 kg aa5 (R); Height 5 ft. 4 in. (162.56 cm) (R); 20:28 BP 134 / 98; Pulse 88; Resp 18; Pulse Ox 99% on R/A; lg3 17:22 Body Mass Index 45.49 (120.20 kg, 162.56 cm) aa5 ED Course: 17:12 Patient arrived in ED. mr 17:17 Grant Baldwin DO is Attending Physician. ms3 17:22 Arm band placed on. aa5 17:23 Triage completed. aa5 17:32 Estefania Valentin, RN is Primary Nurse. 6 17:34 Bed in low position. Call light in reach. Side rails up X 1. 6 17:34 No provider procedures requiring assistance completed. jh6 18:07 Inserted saline lock: 24 gauge in left hand, using aseptic technique. Blood collected. jh6 19:07 Primary Nurse role handed off by Estefania Valentin RN tw5 19:07 Kenna Kirkland is Primary Nurse. tw5 19:12 Attending Physician role handed off by Grant Baldwin DO vicente 19:12 Homero Terrell MD is Attending Physician. vicente 19:35 Abdomen In Process Unspecified. EDMS 20:28 XRAY Chest (1 view) In Process Unspecified. EDMS 21:40 Dionne Zhao MD is Referral Physician. vicente 22:16 IV discontinued, intact, bleeding controlled, No redness/swelling at site. Pressure tw5 dressing applied. Administered Medications: 18:06 Drug: NS 0.9% 1000 ml Route: IV; Rate: 1 bolus; Site: left hand; jh6 22:17 Follow up: Response: No adverse reaction; IV Status: Completed infusion; IV Intake: tw5 1000ml 18:06 Drug: Pepcid (famotidine) 20 mg Route: IVP; Site: left hand; jh6 19:03 Follow up: Response: No adverse reaction [facility] 18:06 Drug: fentaNYL (PF) 50 mcg Route: IVP; Site: left hand; jh6 19:03 Follow up: Response: No adverse reaction 6 21:17 Drug: fentaNYL (PF) 50 mcg Route: IVP; Site: left hand; lg3 21:18 Follow up: Response: No adverse reaction; RASS: Alert and Calm (0) lg3 21:18 Drug: Zofran (Ondansetron) 4 mg Route: IVP; Site: left hand; lg3 21:18 Follow up: Response: No adverse reaction lg3 22:15 Drug: Lactulose 30 grams Volume: 45 ml; Route: PO; tw5 22:15 Follow up: Response: No adverse reaction; Medication administered at discharge. tw5 Medication: 17:34 VIS not applicable for this client. jh6 Intake: 22:17 IV: 1000ml; Total: 1000ml. tw5 Outcome: 21:37 Discharge ordered by . vicente 22:16 Discharged to home ambulatory, with family. tw5 22:16 Condition: good 22:16 Discharge instructions given to patient, Instructed on discharge instructions, follow up and referral plans. Demonstrated understanding of instructions, follow-up care, medications, Prescriptions given X 4. 22:17 Patient left the ED. 5 Signatures: Dispatcher [employer] EDMS Homero Terrell MD MD cha Rivera, Olivia mr Jimenes, Aline, RN RN aa5 Loyda Mariscal, RN RN lg3 Grant Baldwin DO DO ms3 Kenna Kirkland tw5 Estefania Valnetin RN RN jh6
--- NOTE | 2021-09-24 21:37 | EDPHYS ---
Physician Documentation [facility] Name: Zenaida Goss Age: 61 yrs Sex: Female : 1960 Arrival Date: 09/24/2021 Time: 17:12 Bed 8 Private MD: ED Physician Homero Terrell HPI: 09/24 19:20 This 61 yrs old Female presents to ER via Ambulatory with complaints of ms3 Abdominal Pain. 19:20 The patient presents with abdominal pain in the epigastric area. Onset: The ms3 symptoms/episode began/occurred acutely, 2 day(s) ago. The symptoms radiate to back. Associated signs and symptoms: none. The symptoms are described as burning. Modifying factors: The symptoms are alleviated by nothing, the symptoms are aggravated by food. Severity of pain: At its worst the pain was severe in the emergency department the pain is unchanged. Historical: - Allergies: 17:24 Dilaudid; aa5 17:24 Morphine (Anaphylaxis); aa5 - PMHx: 17:24 Anemia; breast cancer; Cirrhosis; fatty liver; Pancreatitis; varices; Heart murmur; aa5 - PSHx: 17:24 Appendectomy; Cholecystectomy; Lumpectomy of breast; Total abdominal hysterectomy; aa5 - Immunization history:: Adult Immunizations up to date, Client reports receiving the 2nd dose of the Covid vaccine. - Social history:: Smoking status: Patient denies any tobacco usage or history of. ROS: 19:20 Constitutional: Negative for fever, and chills. Neck: Negative for injury, pain, and ms3 swelling, Cardiovascular: Negative for chest pain, and palpitations. Respiratory: Negative for shortness of breath, cough, wheezing, and pleuritic chest pain, Abdomen/GI: Epigastric abdominal pain, nausea MS/Extremity: Right knee pain Skin: Negative for injury, rash, and discoloration. 19:20 All other systems are negative. Exam: 19:20 Constitutional: This is a well developed, well nourished patient who is awake, alert, ms3 and in no acute distress. ENT: Nares patent. No nasal discharge, no septal abnormalities noted. Tympanic membranes are normal and external auditory canals are clear. Oropharynx with no redness, swelling, or masses, exudates, or evidence of obstruction, uvula midline. Mucous membranes moist. Neck: Trachea midline, no cervical lymphadenopathy. Supple, full range of motion without nuchal rigidity, or vertebral point tenderness. No Meningismus. Chest/axilla: Normal chest wall appearance and motion. Nontender with no deformity. Cardiovascular: Regular rate and rhythm with a normal S1 and S2. No gallops, murmurs, or rubs. Normal PMI, no JVD. No pulse deficits. Respiratory: Lungs have equal breath sounds bilaterally, clear to auscultation and percussion. No rales, rhonchi or wheezes noted. No increased work of breathing, no retractions or nasal flaring. 19:20 Skin: Warm, dry with normal turgor. Normal color with no rashes, no lesions, and no evidence of cellulitis. Psych: Awake, alert, with orientation to person, place and time. Behavior, mood, and affect are within normal limits. 19:20 Abdomen/GI: Inspection: abdomen appears normal, Bowel sounds: normal, Palpation: mild abdominal tenderness, in the epigastric area. 21:35 ECG was reviewed by the Attending Physician. [facility] Vital Signs: 17:22 BP 132 / 69; Pulse 90; Resp 18 S; Temp 98.3(O); Pulse Ox 99% on R/A; Weight 120.2 kg aa5 (R); Height 5 ft. 4 in. (162.56 cm) (R); 20:28 BP 134 / 98; Pulse 88; Resp 18; Pulse Ox 99% on R/A; lg3 17:22 Body Mass Index 45.49 (120.20 kg, 162.56 cm) aa5 MDM: 17:24 Patient medically screened. ms3 19:20 Differential diagnosis: gastritis, non-specific abd pain, pancreatitis. Transition of ms3 care: After a detail discussion of the patient's case, care is transferred to Homero Terrell MD. 21:26 Data reviewed: vital signs, nurses notes, lab test result(s), EKG, radiologic studies, vicente plain films. Data interpreted: panel monitor: not applicable for this patient encounter. rate is 88 beats/min, Pulse oximetry: on room air is 99 %. Test interpretation: by ED physician or midlevel provider: ECG, plain radiologic studies. 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 09/24 17:25 Order name: CBC with Diff; Complete Time: 20:14 ms3 09/24 17:25 Order name: CMP; Complete Time: 19:12 ms3 09/24 17:25 Order name: Lipase; Complete Time: 19:12 ms3 09/24 19:37 Order name: CBC Smear Scan; Complete Time: 20:14 EDMS 09/24 20:14 Order name: Basic Metabolic Panel; Complete Time: 20:48 [facility] 09/24 19:32 Order name: Abdomen ; Complete Time: 20:14 EDMS 09/24 20:14 Order name: LFT's; Complete Time: 20:48 [facility] 09/24 20:14 Order name: Magnesium; Complete Time: 20:48 [facility] 09/24 20:14 Order name: NT PRO-BNP; Complete Time: 20:48 [facility] 09/24 20:14 Order name: PT-INR; Complete Time: 21:33 [facility] 09/24 20:14 Order name: Troponin HS; Complete Time: 20:48 [facility] 09/24 20:14 Order name: AMMONIA [facility] 09/24 17:25 Order name: IV Saline Lock; Complete Time: 18:07 ms3 09/24 17:25 Order name: Labs collected and sent; Complete Time: 18:07 ms3 09/24 17:25 Order name: Urine Dipstick-Ancillary (obtain specimen); Complete Time: 18:07 ms3 09/24 20:14 Order name: XRAY Chest (1 view); Complete Time: 21:00 [facility] 09/24 20:14 Order name: EKG; Complete Time: 20:15 [facility] 09/24 20:14 Order name: Cardiac monitoring; Complete Time: 20:51 [facility] 09/24 20:14 Order name: EKG - Nurse/Tech; Complete Time: 20:51 [facility] 09/24 20:14 Order name: O2 Per Protocol; Complete Time: 20:27 [facility] 09/24 20:14 Order name: O2 Sat Monitoring; Complete Time: 20:27 [facility] EC:35 Rate is 72 beats/min. Rhythm is regular. QRS [place] is Normal. AR interval is normal. QRS vicente interval is normal. QT interval is normal. No Q waves. T waves are Normal. No ST changes noted. Clinical impression: NSR w/ Non-specific ST/T Changes and No evidence of ischemia. Interpreted by me. Reviewed by me. Administered Medications: 18:06 Drug: NS 0.9% 1000 ml Route: IV; Rate: 1 bolus; Site: left hand; jh6 22:17 Follow up: Response: No adverse reaction; IV Status: Completed infusion; IV Intake: tw5 1000ml 18:06 Drug: Pepcid (famotidine) 20 mg Route: IVP; Site: left hand; jh6 19:03 Follow up: Response: No adverse reaction jh6 18:06 Drug: fentaNYL (PF) 50 mcg Route: IVP; Site: left hand; jh6 19:03 Follow up: Response: No adverse reaction jh6 21:17 Drug: fentaNYL (PF) 50 mcg Route: IVP; Site: left hand; lg3 21:18 Follow up: Response: No adverse reaction; RASS: Alert and Calm (0) lg3 21:18 Drug: Zofran (Ondansetron) 4 mg Route: IVP; Site: left hand; lg3 21:18 Follow up: Response: No adverse reaction lg3 22:15 Drug: Lactulose 30 grams Volume: 45 ml; Route: PO; tw5 22:15 Follow up: Response: No adverse reaction; Medication administered at discharge. tw5 Disposition Summary: 09/24/21 21:37 Discharge Ordered Location: Home [facility] Problem: new vicente Symptoms: have improved vicente Condition: Fair vicente Diagnosis - Abdominal pain, Generalized vicente - Other cirrhosis of liver - ANAYA vicente - Obesity, unspecified vicente - Secondary thrombocytopenia - Cirrhosis vicente - Neutropenia, unspecified - Cirrhosis vicente - Encephalopathy, unspecified - Hepatic vicente Followup: vicente - With: Private Physician - When: 2 - 3 days - Reason: Recheck today's complaints, Continuance of care, Re-evaluation by your physician Followup: vicente - With: Dionne Zhao MD - When: 2 - 3 days - Reason: Recheck today's complaints, Re-evaluation by your physician Discharge Instructions: - Discharge Summary Sheet vicente - Abdominal Pain, Adult vicente - Cirrhosis vicente - Obesity, Adult vicente - Abdominal Pain, Adult, [id number] vicente Forms: - Medication Reconciliation Form vicetne - Thank You Letter vicente - Antibiotic Education vicente - Prescription Opioid Use vicente Prescriptions: - Pepcid 20 mg Oral Tablet - take 1 tablet by ORAL route every 12 hours for 10 days; 20 tablet; Refills: 0, [facility] Product Selection Permitted - Zofran 4 mg Oral Tablet - take 1 tablet by ORAL route every 12 hours As needed; 20 tablet; Refills: 0, [facility] Product Selection Permitted - dicyclomine 20 mg Oral Tablet - take 1 tablet by ORAL route 4 times per day; 28 tablet; Refills: 0, Product [facility] Selection Permitted - Lactulose 10 gram/15 mL Oral Solution - take 30 milliliters by ORAL route once daily; 300 milliliter; Refills: 0, [facility] Product Selection Permitted Signatures: Dispatcher [employer] EDMS Homero Terrell MD MD cha Calderon, Audri, RN RN [email or web address] Loyda Mariscal RN RN lg3 Grant Baldwin DO DO ms3 Kenna Kirkland tw5 Estefania Valentin RN RN jh6 Daniela Renteria PA PA sb3 Corrections: (The following items were deleted from the chart) 19:32 17:26 Abdomen Pelvis W [id number] ordered. EDMS EDMS
[2021-09-24] MEDS ORDERED: LACTULOSE 20 GM/30 ML UCUP ONE (22:15)
[2021-09-24 22:30] VITALS: TEMP 98.3; O2SAT 99
[2021-09-24 22:36] VITALS: BP 134/98
--- NOTE | 2021-09-26 08:57 | EKG ---
Test Date: 2021-09-24 Test Time: 20:37:41 Life Cycle Assessment Analyst: SYLWIA MEASUREMENT RESULTS: Intervals: Rate: 72 AL: 158 QRSD: 148 QT: 482 QTc: 527 [place]: P: 58 AL: 158 QRS: 102 T: 35 INTERPRETIVE STATEMENTS: Normal sinus rhythm Right bundle branch block Abnormal ECG Compared to ECG 07/05/2021 15:13:45 No significant changes Electronically Signed On 09-26-21 08:55:18 CDT by Miguel Crenshaw
== END 2021-09-24 22:17 | disposition home or self-care (01) ==
LOC: ER 17:01
DX: R10.84 Generalized abdominal pain (principal); K72.90 Hepatic failure, unspecified without coma; K74.69 Other cirrhosis of liver; D69.59 Other secondary thrombocytopenia; D70.9 Neutropenia, unspecified; E66.9 Obesity, unspecified; Z68.42 Body mass index [BMI] 45.0-49.9, adult; Z85.3 Personal history of malignant neoplasm of breast; Z88.5 Allergy status to narcotic agent
CPT/HCPCS: 96361; 93005; 85025; 80048; 36415; 82140; 83735; 85610; 80076; 84484; 83690; 80053; 83880; 74176; 71045; 96375; 96374; 99284; J3010 ×2; J7030; J2405; J3490

== ENCOUNTER 2021-10-29 22:19 | Inpatient (IN) | payer OTHER ==
--- OUTSIDE RECORDS SUMMARY | 2021-10-29 22:29 | XMS REPORT | Continuity of Care Document ---
:1960 Author Organization [facility] t Address [address] [place] [address] [address]. [address]. [address] [place] [address] Care Team Providers Name Role Phone Sami HERNANDEZ Primary Care Physician Unavailable Ruth Attending Clinician Unavailable Harley Attending Clinician Unavailable YOLANDA Attending Clinician Unavailable MD MANUELITO Attending Clinician Unavailable MARY KOENIG Attending Clinician Unavailable Mary Fajardo Attending Clinician Doctor Unassigned, Name Attending Clinician Unavailable [facility] Attending Clinician Unavailable José Manuel GREEN Attending Clinician Unavailable Beatriz KNUTSON, F Attending Clinician Nancy REYES Attending Clinician Unavailable NETTIE Attending Clinician Unavailable Only, Db Test Attending Clinician Unavailable Unknown Attending Clinician Unavailable JAIME Attending Clinician Unavailable Sami CARLOS Attending Clinician Unavailable SYLVIA Attending Clinician Unavailable Claudia REYES M Attending Clinician Deshawn Evans MD Attending Clinician Millie HENSLEY Attending Clinician MD MANUELITO Attending Clinician Unavailable Kyrie GERMAN Attending Clinician Unavailable SHERIDAN THOMAS MD Attending Clinician Unavailable MD CECE SANDOVAL Attending Clinician Unavailable Lab, Fam Pob I Attending Clinician Unavailable Kamaljit GARCIA, A Attending Clinician Nasrin ERYES, A Attending Clinician Unavailable MILLIE Attending Clinician Unavailable SHAYY DAVEY Attending Clinician Unavailable JUDIT ESCALONA Attending Clinician Unavailable MANUELITO Admitting Clinician Unavailable MARY KOENIG Admitting Clinician Unavailable BEATRIZ, F Admitting Clinician Unavailable SHERIDAN THOMAS Admitting Clinician Unavailable Sami CARLOS Admitting Clinician Unavailable SYLVIA Admitting Clinician Unavailable Millie HENSLEY Admitting Clinician SHERIDAN THOMAS MD Admitting Clinician Unavailable MD SYLVIA Admitting Clinician Unavailable JAIME Admitting Clinician Unavailable MD CECE SANDOVAL Admitting Clinician Unavailable MD MANUELITO Admitting Clinician Unavailable MILLIE Admitting Clinician Unavailable SHAYY DAVEY Admitting Clinician Unavailable JUDIT ESCALONA Admitting Clinician Unavailable Payers Payer Name Policy Type Policy Number Effective Date Expiration Date [facility] [id number] 2019 CHOICE 00:00:00 Problems Condition Condition Condition Status Onset Resolution Last Treating Co mments Source Name Details Category Date Date Treatment Clinician Date Pancolitis Pancolitis Disease Active U nivers 6-21 ity of 00:00: 00 Medical Branch Arrhythmia Arrhythmia Disease Active U nivers 6-21 ity of 00:00: 00 Medical Branch Ventricula Ventricula Disease Active U nivers r r 6- ity of tachycardi tachycardi [place] 00 [place] Other Other Disease Active Univers cirrhosis cirrhosis 6- ity of of liver of liver 00:00: [place] 00 Medical Branch ANAYA ANAYA Disease Active Univers (nonalcoho (nonalcoho 6- it y of lic lic 00:00: [place] steatohepa steatohepa 00 Me dical geovany) egovany) Branch Hypokalemi Hypokalemi Disease Active U nivers [...] & Disease Active Unive rs vomiting vomiting -29 ity of 00:00: [place] 00 Medical Branch Primary Primary Diagnosis Active 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 of itis of - [facility] right knee right knee [facility] Primary Primary Diagnosis Active 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 of itis of - [facility] left knee left knee [facility] Allergies, Adverse Reactions, Alerts Allergy [...] Active Swelling Throat Univ ers ty to 3-22 closes, ity of adverse 00:00: tongue [place] reaction 00 swelling Medica l s Branch MORPHINE Adverse Active Info Not Commo n Reaction Available Spir t [facility] Social History Social Habit Start Date Stop Date Quantity Comments Source Exposure to 2021-09-18 2021-09-28 Not sure [facility] SARS-CoV-2 00:00:00 21:57:00 [facility] (event) Branch Alcohol intake 2021-04-02 2021-04-02 Ex-drinker [facility] 00:00:00 00:00:00 (finding) [facility] Tobacco use and 2016-08-07 2016-08-07 Never used Universit y of exposure 00:00:00 00:00:00 [facility] Sex Ass[birth year] At [birth year] Universit y of 00:00:00 00:00:00 [facility] Smoking Status Start Date Stop Date Source Never smoker [facility] Medications Ordered Filled Start Stop Current Ordering Indication Dosage Frequency Signature Comments Components Source Medication Medication Date Date Medication? Clinician (SIG) Name Name anurag 2021- No 1{tbl} 1 tablet, Univers en-codeine 09-29 Oral, ity of (TYLENOL 06:00: 05:02 ONCE, 1 [place] #3) 300-30 00 :00 dose, On Medic al mg tablet 1 Tue Branch tablet 09/29/21 at 0100, VERN naproxen 2021- No 500mg 500 mg, Univ ers (NAPROSYN) 09-29 Oral, ity of tablet 500 06:00: 04:58 ONCE, 1 [place] mg 00 :00 dose, On Medical [facility] Branch 09/29/21 at 0100, Routine naproxen Yes [id number] 500mg Take 1 Univers (NAPROSYN) 09-28 9104 tablet by ity of 500 mg 00:00: mouth 2 [place] tablet 00 (two) Medical times Branch daily with meals. dexamethaso 2020-04 No 10mg 10 mg, Uni vers ne 06-03 Oral, ity of (DECADRON 20:45: 20:05 ONCE, 1 [place] PHOSPHATE[place] 00 :00 dose, On Medic al injection [place]ine Branch 10 mg 04/02/21 at 1445, Routine ketorolac 2020-04 No 30mg 30 mg, Unive rs (TORADOL) 06-03 Intramuscu ity of injection 20:45: 20:05 lar, ONCE, [place] 30 mg 00 :00 1 dose, On Medical [place]ine Branch 04/02/21 at 1445, VERN ondansetron 2020-04 Yes [id number] 4mg Take 1 Univers 4 mg 2-23 tablet by ity of disintegrat 00:00: mouth [place] ing tablet 00 every 8 Medica l (eight) Branch hours as needed for Nausea and Vomiting (N/V). ondansetron 2020-04 Yes [id number] 4mg Take 1 Univers 4 mg 2-23 tablet by ity of disintegrat 00:00: mouth [place] ing tablet 00 every 8 Medica l (eight) Branch hours as needed for Nausea and Vomiting (N/V). ondansetron 2020-04 Yes [id number] 4mg Take 1 Univers 4 mg 2-23 tablet by ity of disintegrat 00:00: mouth [place] ing tablet 00 every 8 Medica l (eight) Branch hours as needed for Nausea and Vomiting (N/V). ondansetron 2020-04 Yes [id number] 4mg Take 1 Univers 4 mg 2-23 tablet by ity of disintegrat 00:00: mouth [place] ing tablet 00 every 8 Medica l (eight) Branch hours as needed for Nausea and Vomiting (N/V). cholecalcif 2020- No [id number] Take 2 Univers nuno, 6-26 07-27 tablets by ity of vitamin D3, 00:00: 04:59 [place] 25 mcg 00 :00 daily for Medical (1,000 30 days. Branch unit) tablet cyanocobala 2020- No [id number] 1000ug inject 1 Univers min 1,000 6-26 07-27 mL under ity o f mcg/mL 00:00: 04:59 the skin [place] injection 00 :00 every 24 Medica l (twenty-fo Branch ur) hours for 30 days. KCL 20 mEq 2020- No [id number] 20meq Take 1 Univers tablet 6-26 07-27 tablet by ity of 00:00: 04:59 mouth [place] 00 :00 daily for Medical 30 days. Branch cholecalcif 2020- No [id number] 1999U Take 2 Univers nuno, 6-26 07-27 tablets by ity of vitamin D3, 00:00: 04:59 mouth [place] 25 mcg 00 :00 daily for Medical (1,000 30 days. Branch unit) tablet cyanocobala 2020- No [id number] 1000ug inject 1 Univers min 1,000 6-26 07-27 mL under ity o f mcg/mL 00:00: 04:59 the skin [place] injection 00 :00 every 24 Medica l (twenty-fo Branch ur) hours for 30 days. KCL 20 mEq 2020- No [id number] 20meq Take 1 Univers tablet 6-26 07-27 [...] ity o f mL oral 18:10: daily. [place] solution 25 Medical Branch pantoprazol Yes 40mg [...] ity o f mL oral 13:10: daily. [place] solution 25 Medical Branch pantoprazol Yes 40mg Take 40 mg Univers e 6-25 by mouth ity of (PROTONIX) 13:10: daily. [place] 40 mg EC 25 Medical tablet Branch lactulose Yes 30mL Take 30 mL Un marline 10 gram/15 6-25 by mouth ity o f mL oral 13:10: daily. [place] solution 25 Medical Branch pantoprazol Yes 40mg [...] unresponsi ve to Ondansetro n proMETHazin Yes [id number] 12.5mg Take 1 Univers e 12.5 mg 6-25 tablet by ity o f tablet 00:00: mouth [place] 00 every 6 Medical (six) Branch hours as needed for Nausea and Vomiting (N/V) or N/V unresponsi ve to Ondansetro n. proMETHazin Yes [id number] 12.5mg Take 1 Univers e 12.5 mg 6-25 tablet by ity o f tablet 00:00: mouth [place] 00 every 6 Medical (six) Branch hours as needed for Nausea and Vomiting (N/V) or N/V unresponsi ve to Ondansetro n. proMETHazin Yes [id number] 12.5mg Take 1 Univers e 12.5 mg 6-25 tablet by ity o f tablet 00:00: mouth [place] 00 every 6 Medical (six) Branch hours as needed for Nausea and Vomiting (N/V) or N/V unresponsi ve to Ondansetro n. proMETHazin Yes [id number] 12.5mg Take 1 Univers e 12.5 mg 6-25 tablet by ity o f tablet 00:00: mouth [place] 00 every 6 Medical (six) Branch hours as needed for Nausea and Vomiting (N/V) or N/V unresponsi ve to Ondansetro n. proMETHazin Yes [id number] 12.5mg Take 1 Univers e 12.5 mg 6-25 tablet by ity o f tablet 00:00: mouth [place] 00 every 6 Medical (six) Branch hours as needed for Nausea and Vomiting (N/V) or N/V unresponsi ve to Ondansetro n. proMETHazin Yes [id number] 12.5mg Take 1 Univers e 12.5 mg 6-25 tablet by ity o f tablet 00:00: mouth [place] 00 every 6 Medical (six) Branch hours as needed for Nausea and Vomiting (N/V) or N/V unresponsi ve to Ondansetro n. proMETHazin Yes [id number] 12.5mg Take 1 Univers e 12.5 mg 6-25 tablet by ity o f tablet 00:00: mouth [place] 00 every 6 Medical (six) Branch hours as needed for Nausea and Vomiting (N/V) or N/V unresponsi ve to Ondansetro n. proMETHazin Yes [id number] 12.5mg Take 1 Univers e 12.5 mg 6-25 tablet by ity o f tablet 00:00: mouth [place] 00 every 6 Medical (six) Branch hours as needed for Nausea and Vomiting (N/V) or N/V unresponsi ve to Ondansetro n. proMETHazin Yes [id number] 12.5mg Take 1 Univers e 12.5 mg 6-25 tablet by ity o f tablet 00:00: mouth [place] 00 every 6 Medical (six) Branch hours as needed for Nausea and Vomiting (N/V) or N/V unresponsi ve to Ondansetro n. furosemide 2020- No [id number] 40mg Take 1 Univers 40 mg 6-25 07-26 tablet by ity of tablet 00:00: 04:59 mouth [place] 00 :00 every Medical morning Branch and evening for 30 days. lipase-prot 2020- No [id number] 2{capsu Take 2 Univers ease-amylas 6-25 07-26 le} capsules ity of e 00:00: 04:59 by mouth 3 [place] 12,000-38,0 00 :00 (three) Medic al 00 -60,000 times Branch unit daily with capsule meals for 30 days. lactobacill 2020- No [id number] .5mg Take 1 Univers us 6-25 07-26 tablet by ity of acidophilus 00:00: 04:59 mouth 2 [place] 00 :00 (two) Medical times Branch daily for 30 days. furosemide 2020- No [id number] 40mg Take 1 Univers 40 mg 6-25 07-26 tablet by ity of tablet 00:00: 04:59 mouth [place] 00 :00 every Medical morning Branch and evening for 30 days. lipase-prot 2020- No [id number] 2{capsu Take 2 Univers ease-amylas 6-25 07-26 le} capsules ity of e 00:00: 04:59 by mouth 3 [place] 12,000-38,0 00 :00 (three) Medic al 00 -60,000 times Branch unit daily with capsule meals for 30 days. lactobacill 2020- No [id number] .5mg Take 1 Univers us 6-25 07-26 tablet by ity of acidophilus 00:00: 04:59 mouth 2 [place] 00 :00 (two) Medical times Branch daily for 30 days. vancomycin 2020- No [id number] 125mg Take 1 Univers 125 mg 6-25 07-06 capsule by ity of capsule 00:00: 04:59 mouth 4 [place] 00 :00 (four) Medical times Branch daily for 10 days. vancomycin 2020- No [id number] 125mg Take 1 Univers 125 mg 6-25 [...] Indication s: acute pain cephALEXin 2020- No [id number] 500mg Take 1 Univers 500 mg 6-25 - capsule by ity of capsule 00:00: 04:59 mouth 4 [place] 00 :00 (four) Medical times Branch daily for 5 days. cephALEXin 2020- No [id number] 500mg Take 1 Univers 500 mg 6-25 - capsule by ity of capsule 00:00: 04:59 mouth 4 [place] 00 :00 (four) Medical times Branch daily for 5 days. meperidine Yes 25mg 25 mg, Unive rs (DEMEROL) 6-24 Intramuscu ity of injection 22:11: lar, [place] 25 mg 15 Q6HPRN, Medical Starting Branch Geraldine 10/02/20 at 1711, Until Discontinu ed, Routine, Pain (scale 7-10)
E nter indication for use: Anaphylact ic allergies to all other opioid formulatio ns
Facu lty member approving Restricted medication : GITA MATT ipratropium Yes 3mL 3 mL, Unive rs [...] approving Non-formul mary medication : TOMASA ESCAMILLA
Sami kelvin for non-formul mary use: SPECIFIC INDICATION [...] (N/V) meperidine 2020- No 50mg 50 mg, [facility] [place] ers (DEMEROL) 09-30 Slow IV ity of injection 17:11: 20:00 Push, [place] 50 mg 15 :07 Q4HPRN, Medical Starting Branch Tue09/30/20 at 1211, Until Geraldine 10/02/20 at 1500, Routine, Pain (scale 7-10)
E nter indication for use: Anaphylact ic allergies to all other opioid formulatio ns
Facu lty member approving Restricted medication : SASHAARBENTOMASA cyanocobala Yes 1000ug 1,000 mcg, Univers min 09-30 Subcutaneo ity of (VITAMIN 14:45: us, Q24H, [place] B12) 00 First dose Medical injection on Tue Branch 1,000 mcg 09/30/20 at 0945, Until Discontinu ed, Routine zolpidem Yes 2.5mg 2.5 mg, [facility] rs (AMBIEN) 09-30 Oral, ity of tablet 2.5 03:51: QHSPRN, [place] mg 57 Starting Medical [facility] Branch 09/29/20 at 2251, Until Discontinu ed, Routine, Insomnia D5W 0.45% 2020- No IV Univers NaCl 09-29 Infusion, ity of (1/2NS) 1 L 21:00: 21:15 at 100 [place] as + KCL 20 00 :40 mL/hr, Medical mEq CONTINUOUS Branch , Starting Tue09/29/20 at 1600, Until Tue09/30/20 at 1615, Routine cholecalcif 0 Yes 2000U 2,000 [facility] [place] ers nuno 09-29 Units, ity of (vitamin 20:00: Oral, [place] D3) tablet 00 DAILY, Medical 2,000 Units First dose Br anch on Tue09/29/20 at 1500, Until Discontinu ed, Routine lactobacill Yes .5mg 0.5 mg, Uni vers us 09-29 Oral, BID, ity of acidophilus 14:15: First dose [place] tablet 0.5 00 on [facility] Medical mg 09/29/20 at Branch 0915, Until [...] s, ONCE, 1 Medic al dose, [facility] 09/29/20 at 0245, Routine FENTanyl PF No 50ug 50 mcg, Un marline (SUBLIMAZE 09-29 Slow IV ity o f (PF)) 07:30: 06:27 Push, [place] injection 00 :00 ONCE, 1 Medical 50 mcg dose, [facility] 09/29/20 at 0230, Routine piperacilli 2020- No 3.375g 3.375 g, Univers n-tazobacta 09-29 IV ity of m (ZOSYN) 07:30: 07:00 Piggyback, [place] 3.375 g in 00 :00 ONCE, 1 Medica l NaCl 0.9% dose, [facility] (NS) 100 mL 09/29/20 at MINI-BAG 0230, 100 mL
Reas on for Anti-Infec tive: Documented Infection< br>Documen josemanuel Infection Site: Abdominal< br>Duratio n of Therapy: Other (see Comments) pantoprazol 2020- No 40mg 40 mg, IV Univers e 09-29 Piggyback, ity of (PROTONIX) 06:45: 21:11 Q12H, [place] 40 mg in 00 :56 First dose Medic al NaCl 0.9% on [facility] (NS) 100 mL 09/29/20 at MINI-BAG 0145, Until Discontinu ed, 100 mL lactobacill 2020- No 1{tbl} 1 tablet, Univers us 09-29 Oral, BID, ity of acidophilus 06:45: 14:05 First dose [place] (ACIDOPHILL 00 :17 on [facility] Medica l US) 25 09/29/20 at Branch million 0145, cell -100 Until mg captab 1 Discontinu tablet ed, Routine ondansetron Yes 4mg 4 mg, Slow Univers (ZOFRAN 09-29 IV Push, ity of (PF)) 06:42: Q6HPRN, [place] injection 4 17 Starting Medi molly mg [facility] 09/29/20 at 0142, Until Discontinu ed, Routine, Nausea and Vomiting (N/V) iopamidol 2020- No [id number] 100mL 100 mL, Univers (ISOVUE 09-29 Intravenou ity o f 370-500 mL) 06:00: 04:53 s, ONCE, 1 [place] injection 00 :00 dose, Mon Medic al 100 mL 09/29/20 at Branch 0100, Routine KCL 2020- No 40meq 40 mEq, Univers (KLOR-CON 09-29 Oral, ity of M20) tablet 05:45: 05:15 ONCE, 1 [place] 40 mEq 00 :00 dose, [facility] Medical 09/29/20 at Branch 0045, Routine ondansetron [...] :00 ONCE, 1 Medical 50 mcg dose, [facility] Branch 09/29/20 at 0045, Routine NaCl 0.9% 2020- No 1000mL at 999 Uni vers (NS) IV 09-29 mL/hr, ity of infusion 05:45: 06:38 Intravenou [place] 1,000 mL 00 :45 s, Medical CONTINUOUS Branch , Starting 09/29/20 at 0045, Until 09/29/20 at 0138, Routine Meloxicam Meloxicam 2020- No Gm 1 tablet Common 09-17 [facility] 00:00: 00:00 - [facility] 00 :00 [facility] flu vaccine 2019-0 2020- No .5mL 0.5 mL, Un marline 6 months 5 05-02 Intramuscu ity of and up 20:51: 20:54 [place], ONCE, [place] (FLUZONE 00 :00 1 dose, Medical QUAD 08/11/19 Branch at 1600, (PF)) Routine syringe 0.5 mL lactulose 2019- No 30mL Take 30 mL U nivers 10 gram/15 08-10-02 by mouth 2 it y of mL [...] injection 4 00 Starting Medi molly mg Tue08/10/19 Branch at 2230, Until Discontinu ed, Routine, [...] as needed for Pain (scale 4-6). lactulose 2020-0 2020- No [id number] 30mL Take 30 mL Univers 10 gram/15 08-10 by mouth 2 it y of mL oral 00:00: 04:59 (two) [place] solution 00 :00 times Medical daily for Branch 30 days. pantoprazol 2020-0 2020- No [id number] 40mg Take 1 Univers e 40 mg EC 08-10- tablet by ity of tablet 00:00: 04:59 mouth [place] 00 :00 daily for Medical 30 days. Branch lactulose 2020-0 2020- No [id number] 30mL Take 30 mL Univers 10 gram/15 08-10 by mouth 2 it y of mL oral 00:00: 04:59 (two) [place] solution 00 :00 times Medical daily for Branch 30 days. pantoprazol 2019-0 2020- No [id number] 40mg Take 1 Univers e 40 mg EC 08-10 tablet by ity of tablet 00:00: 04:59 mouth [place] 00 :00 daily for Medical 30 days. Branch propranolol 2019-0 2020- No [id number] 10mg Take 1 Univers 10 mg 08-10- tablet by ity of tablet 00:00: 00:00 [...] Branch 08/10/19 at 0600, Routine D5W-LR IV Yes 1000mL at 100 Univ ers infusion 5-01 mL/hr, IV ity of 1,000 mL 10:30: Infusion, [place] 00 CONTINUOUS Medical , Starting Branch Tue08/10/19 at 0530, Until Discontinu ed, Routine FENTanyl PF Yes 50ug 50 mcg, Uni vers (SUBLIMAZE 08-09 Slow IV ity of (PF)) 09:22: Push, [place] injection 46 Q4HPRN, Medical 50 mcg Starting [...] (two) Medical rectal times Branch cream daily. Xifaxan Xifaxan Yes Gm not Common Singh defined [facility] Lactulose Lactulose Yes Gm not Co mmon Singh defined [facility] Albuterol Albuterol Yes Gm not Co mmon Sulfate HFA Sulfate HFA Singh defined [facility] Azithromyci Azithromyci Yes Gm not Common n n Singh defined [facility] Amoxicillin Amoxicillin Yes Gm not Common -Pot -Pot Singh defined Spirit Clavulanate Clavulanate [facility] Pantoprazol Pantoprazol Yes Gm not Common e Sodium e Sodium Singh defined Spir it [facility] Acetaminoph Acetaminoph Yes Gm not Common en-Codeine en-Codeine Singh defined [facility] #3 #3 [facility] Oseltamivir Oseltamivir Yes Gm not Common Phosphate Phosphate Singh defined Sp cleopatra [facility] Levofloxaci Levofloxaci Yes Gm not Common n n Singh defined [facility] Immunizations Ordered Filled Immunization Date Status Comments [facility] e Immunization Name Name Pneumococcal 2020-10-03 Completed University o f Polysaccharide, 00:00:00 [place] Med ical PPSV23 (PNEUMOVAX) Branch Pneumococcal 2020-10-03 Completed University o f Polysaccharide, 00:00:00 [place] Med ical PPSV23 (PNEUMOVAX) Branch Pneumococcal 2020-10-03 Completed University o f Polysaccharide, 00:00:00 [place] Med ical PPSV23 (PNEUMOVAX) Branch Pneumococcal 2020-10-03 Completed University o f Polysaccharide, 00:00:00 [facility] ical PPSV23 (PNEUMOVAX) Branch Pneumococcal 2020-10-03 Completed University o f Polysaccharide, 00:00:00 [facility] ical PPSV23 (PNEUMOVAX) Branch Pneumococcal 2020-10-03 Completed University o f Polysaccharide, 00:00:00 [place] Med ical PPSV23 (PNEUMOVAX) Branch Pneumococcal 2020-10-03 Completed University o f Polysaccharide, 00:00:00 [place] Med ical PPSV23 (PNEUMOVAX) Branch Pneumococcal 2020-10-03 Completed University o f Polysaccharide, 00:00:00 [place] Med ical PPSV23 (PNEUMOVAX) Branch Pneumococcal 2020-10-03 Completed University o f Polysaccharide, 00:00:00 [place] [facility] ical PPSV23 (PNEUMOVAX) Branch SARS-COV-2 COVID-19 2020-08-08 Completed Unive rsity of MODERNA VACCINE 00:00:00 [facility] ical Branch SARS-COV-2 COVID-19 2020-08-08 Completed Unive rsity of MODERNA VACCINE 00:00:00 [facility] ical Branch SARS-COV-2 COVID-19 2020-08-08 Completed Unive rsity of MODERNA VACCINE 00:00:00 [facility] ical Branch SARS-COV-2 COVID-19 2020-08-08 Completed Unive rsity of MODERNA VACCINE 00:00:00 [facility] ical Branch SARS-COV-2 COVID-19 2020-08-08 Completed Unive rsity of MODERNA VACCINE 00:00:00 [facility] ical Branch SARS-COV-2 COVID-19 2020-08-08 Completed Unive rsity of MODERNA VACCINE 00:00:00 [facility] ical Branch SARS-COV-2 COVID-19 2020-08-08 Completed Unive rsity of MODERNA VACCINE 00:00:00 [facility] ical Branch SARS-COV-2 COVID-19 2020-08-08 Completed Unive rsity of MODERNA VACCINE 00:00:00 [facility] [place] [facility] ical Branch SARS-COV-2 COVID-19 2020-08-08 Completed Unive rsity of MODERNA VACCINE 00:00:00 [facility] ical Branch SARS-COV-2 COVID-19 2020-08-08 Completed Unive rsity of MODERNA VACCINE 00:00:00 [facility] ical Branch SARS-COV-2 COVID-19 2020-07-11 Completed Unive rsity of MODERNA VACCINE 00:00:00 [facility] SARS-COV-2 COVID-19 2020-07-11 Completed Unive rsity of MODERNA VACCINE 00:00:00 [facility] SARS-COV-2 COVID-19 2020-07-11 Completed Unive rsity of MODERNA VACCINE 00:00:00 [facility] SARS-COV-2 COVID-19 2020-07-11 Completed Unive rsity of MODERNA VACCINE 00:00:00 [facility] SARS-COV-2 COVID-19 2020-07-11 Completed Unive rsity of MODERNA VACCINE 00:00:00 [facility] SARS-COV-2 COVID-19 2020-07-11 Completed Unive rsity of MODERNA VACCINE 00:00:00 [facility] SARS-COV-2 COVID-19 2020-07-11 Completed Unive rsity of MODERNA VACCINE 00:00:00 [facility] SARS-COV-2 COVID-19 2020-07-11 Completed Unive rsity of MODERNA VACCINE 00:00:00 [facility] SARS-COV-2 COVID-19 2020-07-11 Completed Unive rsity of MODERNA VACCINE 00:00:00 [facility] SARS-COV-2 COVID-19 2020-07-11 Completed Unive rsity of MODERNA VACCINE 00:00:00 [facility] Influenza Virus 2019-08-11 Completed Universit y of Vaccine Quad .5 mL 00:00:00 [facility] IM 6+ MO Branch Influenza Virus 2019-08-11 Completed Universit y of Vaccine [place] .5 mL 00:00:00 [facility] IM 6+ MO Branch Influenza Virus 2019-08-11 Completed Universit y of Vaccine Quad .5 mL 00:00:00 [place] Medical IM 6+ MO Branch Influenza Virus 2019-08-11 Completed Universit y of Vaccine Quad .5 mL 00:00:00 [place] Medical IM 6+ MO Branch Influenza Virus 2019-08-11 Completed Universit y of Vaccine Quad .5 mL 00:00:00 [place] Medical IM 6+ MO Branch Influenza Virus 2019-08-11 Completed Universit y of Vaccine [place] .5 mL 00:00:00 [facility] 6+ MO Branch Influenza Virus 2019-08-11 Completed Universit y of Vaccine Quad .5 mL 00:00:00 [place] Medical IM 6+ MO Branch Influenza Virus 2019-08-11 Completed Universit y of Vaccine Quad .5 mL 00:00:00 [place] Medical IM 6+ MO Branch Influenza Virus 2019-08-11 Completed Universit y of Vaccine [place] .5 mL 00:00:00 [place] Medical IM 6+ MO Branch Influenza Virus 2019-08-11 Completed Universit y of Vaccine [place] .5 mL 00:00:00 [place] Medical IM 6+ MO Branch Influenza Virus 2019-08-11 Completed Universit y of Vaccine [place] .5 mL 00:00:00 [place] Medical IM 6+ MO Branch Influenza Virus 2019-08-11 Completed Universit y of Vaccine [place] .5 mL 00:00:00 [place] Medical IM 6+ MO Branch Influenza Virus 2019-08-11 Completed Universit y of Vaccine [place] .5 mL 00:00:00 [facility] 6+ MO Branch Vital Signs Vital Name Observation Time Observation Value Comments Source Systolic blood 2021-09-29 03:00:00 126 mm[Hg] Univer sity of pressure [facility] Diastolic blood 2021-09-29 03:00:00 57 mm[Hg] Unive rsity of [facility] Heart rate 2021-09-29 03:00:00 78 /min Community [facility] Body temperature 2021-09-29 03:00:00 37.28 Sandee [facility] Respiratory rate 2021-09-29 03:00:00 16 /min [facility] Body height 2021-09-29 03:00:00 162.6 cm [facility] Body weight 2021-09-29 03:00:00 117.935 kg [facility] BMI 2021-09-29 03:00:00 44.63 kg/m2 [facility] Oxygen saturation in 2021-09-29 03:00:00 97 /min [facility] Arterial blood by [facility] Pulse oximetry Branch Systolic blood 2021-04-02 18:55:00 138 mm[Hg] Univer sity of pressure [facility] Diastolic blood 2021-04-02 18:55:00 104 mm[Hg] Unive rsity of [facility] Heart rate 2021-04-02 18:55:00 74 /min [facility] Body temperature 2021-04-02 18:55:00 36.78 Sandee [facility] Respiratory rate 2021-04-02 18:55:00 18 /min [facility] Body weight 2021-04-02 18:55:00 122.471 kg [facility] BMI 2021-04-02 18:55:00 46.35 kg/m2 [facility] Oxygen saturation in 2021-04-02 18:55:00 97 /min University of Arterial blood by [facility] molly Pulse oximetry Branch Systolic blood 2020-10-03 17:23:00 132 mm[Hg] Univer [facility]ity [facility] Diastolic blood 2020-10-03 17:23:00 56 mm[Hg] Unive rsity [facility] Heart rate 2020-10-03 17:23:00 88 /min [facility] Body temperature 2020-10-03 17:23:00 36.94 Sandee [facility] Respiratory rate 2020-10-03 17:23:00 18 /min [facility] Oxygen saturation in 2020-10-03 17:23:00 94 /min University of Arterial blood by [facility] Pulse oximetry Branch Body weight 2020-09-30 08:11:00 121.473 kg [facility] BMI 2020-09-30 08:11:00 47.44 kg/m2 [facility] Body height 2020-09-29 03:33:00 160 cm [facility] Diastolic blood 2019-08-11 20:04:00 44 mm[Hg] Unive [facility] Heart rate 2019-08-11 20:04:00 70 /min [facility] Body temperature 2019-08-11 20:04:00 36.61 Sandee [facility] Respiratory rate 2019-08-11 20:04:00 18 /min [facility] Oxygen saturation in 2019-08-11 20:04:00 91 /min University of Arterial blood by [facility] molly Pulse oximetry Branch Systolic blood 2019-08-11 20:04:00 107 mm[Hg] Univer sity of [facility] [place] [facility] [place] Body height 2019-08-10 08:01:00 162.6 cm [facility] [place] [facility] [place] Body weight 2019-08-10 08:01:00 119.296 kg [facility] [place] [facility] [place] BMI 2019-08-10 08:01:00 45.14 kg/m2 Universi ty [facility] Diastolic blood 2019-08-11 20:04:00 44 mm[Hg] [facility] 2019-08-11 20:04:00 70 /min Universi ty [facility] [place] Body temperature 2019-08-11 20:04:00 36.[address] Sandee [facility] Respiratory rate 2019-08-11 20:04:00 18 /min [facility] Oxygen saturation in 2019-08-11 20:04:00 91 /min [facility] Arterial blood by [facility] Pulse oximetry Branch Systolic blood 2019-08-11 20:04:00 107 mm[Hg] Univer sity of [facility] Body height 2019-08-10 08:01:00 162.6 cm [facility] [place] [facility] [place] Body weight 2019-08-10 08:01:00 119.296 kg Universi ty [facility] BMI 2019-08-10 08:01:00 45.14 kg/m2 [facility] Procedures Procedure Date / Time Performing Clinician Source Performed XR KNEE 3 VW RIGHT 2021-09-29 04:06:00 Sukhdev Koenig [facility] NOTICE OF PRIVACY 2021-09-29 02:46:43 Doctor Unassigned, [facility] PRACTICES [facility] CONSENT/REFUSAL FOR 2021-09-29 02:46:16 Doctor Unatateigned, [facility] DIAGNOSIS AND TREATMENT [facility] [place] XR KNEE 3 VW LEFT 2021-04-02 20:10:39 [facility] CONSENT/REFUSAL FOR 2021-04-02 17:59:31 [facility] DIAGNOSIS AND TREATMENT [facility] ASSIGNMENT OF BENEFITS 2021-03-10 20:29:46 Doctor Kathleen, [facility] PHOSPHORUS 2020-10-03 08:52:00 Brenda Teixeira [facility] MAGNESIUM 2020-10-03 08:52:00 Brenda Teixeira [facility] COMP. METABOLIC PANEL 2020-10-03 08:52:00 Kim Teixeiraherine [facility] ([id number]) [facility] CBC WITH DIFF 2020-10-03 08:52:00 [facility] METABOLIC PANEL 2020-10-02 08:39:00 Puneet [facility] ([id number]) [facility] CBC WITH DIFF 2020-10-02 08:39:00 Puneet [facility] US DUPLEX VENOUS ARM LEFT 2020-10-01 16:22:58 Brenda Teixeira [facility] - BY VASCULAR LAB [facility] COMP. METABOLIC PANEL 2020-10-01 07:45:00 Alka [facility] ([id number]) [facility] Branch CBC WITH DIFF 2020-10-01 07:45:00 [facility] TROPONIN I 2020-09-30 10:56:00 Marco [facility] COMP. METABOLIC PANEL 2020-09-30 10:56:00 Wes Brito [facility] ([id number]) [facility] CBC WITH DIFF 2020-09-30 10:56:00 Wes Brito [facility] N-TERMINAL PRO-BNP 2020-09-30 08:05:00 Wes Brito [facility] OCCULT (GUAIAC) BLOOD 2020-09-30 02:10:00 [facility]o [facility] FECAL LEUKOCYTES 2020-09-30 02:10:00 Millie [facility] CLOSTRIDIUM DIFFICILE 2020-09-30 02:10:00 Millie [facility] FECAL PATHOGENS BY PCR 2020-09-30 02:10:00 Wes Brito [facility] POCT GLUCOSE (AUTOMATED) 2020-09-30 00:35:00 Rene Evans [facility] BASIC METABOLIC PANEL 2020-09-29 21:11:00 Wes Brito [facility] (NA, K, CL, CO2, GLUCOSE, Medica l Branch BUN, CREATININE, CA) HEMOGLOBIN 2020-09-29 21:11:00 Tomasa Escamilla [facility] TRANSTHORACIC ECHO (TTE) 2020-09-29 16:03:00 Marco Levy [facility] HB ECG ROUTINE & RHYTHM 2020-09-29 11:18:58 Wes Brito [facility] OSMOLALITY URINE 2020-09-29 08:56:00 Millie sharad [facility] URINE CULTURE 2020-09-29 08:56:00 Wes Brito [facility] SODIUM, URINE RANDOM 2020-09-29 08:56:00 Wes Brito [facility] PROTEIN CREAT RATIO URINE 2020-09-29 08:56:00 Wes Brito [facility] BLOOD CULTURE SCREEN 2020-09-29 08:32:00 Wes Brito [facility] LACTIC ACID WHOLE BLOOD 2020-09-29 08:32:00 Wes Brito [facility] VITAMIN B12, LEVEL 2020-09-29 08:31:00 Wes Brito [facility] C-REACTIVE PROTEIN 2020-09-29 08:31:00 Wes Brito [facility] IRON PANEL 2020-09-29 08:31:00 Wes Brito [facility] SEDIMENTATION RATE 2020-09-29 08:31:00 Wes Brito [facility] DIFF CONSULT 2020-09-29 08:31:00 Wes Brito [facility] CBC WITH DIFF 2020-09-29 08:31:00 Wes Brito [facility] PROTHROMBIN TIME / INR 2020-09-29 08:31:00 eWs Brito [facility] N-TERMINAL PRO-BNP 2020-09-29 08:31:00 Wes Brito [facility] VITAMIN D, 25-OH 2020-09-29 08:31:00 Millie [facility] PROCALCITONIN 2020-09-29 08:31:00 Millie [facility] COVID-19 (ID NOW RAPID 2020-09-29 05:10:00 Rene Evans [facility] TESTING) Medical Branch LAB ONLY COVID 2020-09-29 05:10:00 Rene Evans [facility] INTERPRETATION [facility] CT ABDOMEN PELVIS W 2020-09-29 04:56:31 Rene Evans [facility] CONTRAST [facility] URINALYSIS 2020-09-29 04:19:00 Rene Evans [facility] PHOSPHORUS 2020-09-29 03:54:00 Millie [facility] CREATINE KINASE 2020-09-29 03:54:00 [facility]ie [facility] URIC ACID 2020-09-29 03:54:00 [facility] LIPASE 2020-09-29 03:54:00 Rene Evans [facility] MAGNESIUM 2020-09-29 03:54:00 [facility] FERRITIN SERUM 2020-09-29 03:54:00 [facility] TROPONIN I 2020-09-29 03:54:00 Marco Levy [facility] THYROID STIMULATING 2020-09-29 03:54:00 Millie sharad [facility] HORMONE [facility] Branch COMP. METABOLIC PANEL 2020-09-29 03:54:00 Rene Evans [facility] ([id number]) Medical Branch LIPID PANEL (16053)(TOTAL 2020-09-29 03:54:00 Wes Brito [facility] CHOLESTEROL, [facility] TRIGLYCERIDES, HDL) CBC WITH DIFF 2020-09-29 03:54:00 Rene Evans [facility] GLYCOSYLATED HEMOGLOBIN 2020-09-29 03:54:00 Wes Brito [facility] (A1C) [facility] N-TERMINAL PRO-BNP 2020-09-29 03:54:00 Wes Brito [facility] CONSENT/REFUSAL FOR 2020-09-29 03:18:51 Doctor Unassigned, [facility] DIAGNOSIS AND TREATMENT [facility] [place] NOTICE OF PRIVACY 2020-09-29 03:18:30 Doctor Unassigned, [facility] PRACTICES [facility] [place] CT ABDOMEN PELVIS W 2019-08-11 14:50:46 Corby Ca [facility] CONTRAST [facility] COMP. METABOLIC PANEL 2019-08-11 08:00:00 Millie sharad [facility] ([id number]) [facility] CBC WITH DIFFERENTIAL 2019-08-11 08:00:00 Millie [facility] CBC WITH DIFFERENTIAL 2019-08-11 08:00:00 [facility] XR SMALL BOWEL SERIES 2019-08-10 21:18:47 [facility] X[facility] ABDOMEN 1 VW 2019-08-10 11:52:39 [facility]ie [facility] PHOSPHORUS 2019-08-10 11:11:00 [facility] CREATINE KINASE 2019-08-10 11:11:00 [facility] AMYLASE 2019-08-10 11:11:00 [facility] LIPASE 2019-08-10 11:11:00 [facility] MAGNESIUM 2019-08-10 11:11:00 [facility] TEST, SERUM 2019-08-10 11:11:00 [facility]ie [facility]ad [facility] THYROID STIMULATING 2019-08-10 11:11:00 Wes Brito [facility] HORMONE [facility] Branch COMP. METABOLIC PANEL 2019-08-10 11:11:00 Millie sharad [facility] ([id number]) [facility] LIPID PANEL (17989)(TOTAL 2019-08-10 11:11:00 Wes Brito [facility] CHOLESTEROL, [facility] Branch TRIGLYCERIDES, HDL) SEDIMENTATION RATE 2019-08-10 11:11:00 Wes Brito [facility] CBC WITH DIFFERENTIAL 2019-08-10 11:11:00 [facility]o [facility] GLYCOSYLATED HEMOGLOBIN 2019-08-10 11:11:00 Wes Briot [facility] (A1C) [facility] PROTHROMBIN TIME / INR 2019-08-10 11:11:00 Wes Brito [facility] CORONAVIRUS COVID-19 2019-08-10 09:04:00 Wes Brito [facility] TESTING [facility] Encounters Start End Encounter Admission Attending Care Care Encounter Source Date/Time Date/Time Type Type Clinicians Facility Department ID 2021-10-13 Outpatient Kattegummul STLMLC STLMLC [id number] Common 14:25:01 a, Madhu [facility] 2021-05-06 Outpatient Kattegummul STLMLC STLMLC [id number] Common 14:30:56 a, Madhu [facility] 2021-05-06 Outpatient Katte[place]ummul STLMLC STLMLC [id number] Common 14:26:04 a, Madhu 29495 [facility] 2021-05-06 Outpatient Katte[place]ummul STLMLC STLMLC [id number] Common 14:05:28 a, Madhu 18491 [facility] 2021-05-06 Outpatient Kattegummul STLMLC STLMLC [id number] Common 13:37:29 a, Madhu 57901 [facility] 2021-05-06 Outpatient [place], STLMLC STLMLC [id number] Common 13:36:02 Annalise 61694 [facility] 2021-05-06 Outpatient [place], STLMLC STLMLC [id number] Common 11:25:36 Annalise 52573 [facility] 2021-02-09 Emergency [facility] [id number] Univers 02:25:27 ity of [facility] 2021-10-21 2021-10-26 Inpatient RAFAEL GUERRERO [facility] [id number] [place] 00:00:00 00:00:[address] 2021-09-28 2021-09-29 Emergency X Sukhdev KOENIG [facility] ERT [id number] Univers 22:03:00 00:15:00 ity of [facility] 2021-09-28 2021-09-29 Emergency Sukhdev Koenig [facility] 1.2.840.114 [id number] Univers 22:03:00 00:15:00 Mary WHITT [id number] i ty of [place] 4.2.7.2.[address] [facility] [phone] [place] [id number] [place] 2021-09-28 2021-09-28 Orders Doctor PIPER 1.2.840.114 [id number] Univers 00:00:00 00:00:00 Only Unassigned, GONZALO [id number] ity of [facility] 4.2.7.2.686 Quang [id number] [facility] 009 Branch 2021-04-07 2021-04-07 Letter Orthopedic [facility] 1.2.840.114 [id number] Univers 00:00:00 00:00:00 (Out) Clinic SPECIALTY [id number] ity of CARE 4.2.7.2.686 [facility] AT [phone] Pa pritesh MUHAMMADFausto [address] [place] [address] 2021-04-02 2021-04-02 Emergency X BEATRIZ [facility] ERT [id number] Univers 12:58:00 15:25:00 FOLUSHO ity of [facility] 2021-04-02 2021-04-02 Emergency [facility] 1.2.840.114 [id number] Univers 12:58:00 15:25:00 Kinsey WHITT [id number] ity of [place] 4.2.7.2.[address] [facility] [id number] [address] 2021-03-11 2021-03-11 Telephone VERONIQUE Cruz 1.2.019.820 [id number] Univers 00:00:00 00:00:00 Frances GONZALO [id number] it y of [facility] 4.2.7.2.686 Quang as [phone] [facility] 019 [place] 2021-03-10 2021-03-10 [facility] [id number] Univers 14:45:00 14:51:40 LEXIE ity of [facility] 2021-03-10 2021-03-10 Outpatient R [facility] [id number] Univers 14:45:00 14:45:00 [id number] ity [facility] 2021-03-10 2021-03-10 Laboratory Only, Ang Db Test [facility] 1.2.8 40.114 [id number] Univers 14:29:53 14:44:53 Only Unknown, Attending HEALTH 350.1.13.10 ity of [place] 4.2.7.2.686 Quang as MARINA?BLEA [phone] Pa dical [address] MEDICAL OFFICE BUILDING 2021-03-10 2021-03-10 Orders Doctor VERONIQUE 1.2.840.114 [id number] Univers 00:00:00 00:00:00 Only Unassigned, GONZALO [id number] ity of [place] [facility] 4.2.7.2.686 Quang as [phone] [address] 2021-02-18 2021-02-20 Inpatient JAIME, [facility] [id number] [place] 00:00:00 00:00:00 CHERI 379 Method i 2021-02-03 2021-02-04 Emergency X [facility] ERT [id number] Univers 21:10:00 03:21:00 GARTH ity of [facility] 2020-10-21 2020-10-27 Inpatient SYLVIA, [facility] [id number] [place] 00:00:00 00:00:00 ROBERTH 980 Method i 2020-10-06 2020-10-06 Transition Jocelyne Taylor 1.2.840.114 [id number] Univers 00:00:00 00:00:00 of Care Madiha Sotelo 350.1.13.10 i [place] [id number] [facility] 403 Branch 2020-09-28 2020-10-03 Hospital Rene Evans [facility] 1.2.840. 114 [id number] Univers 22:23:00 13:05:00 Encounter Millie Wes Whitt 350.1.13.10 ity [place] [id number] [facility] 081 Branch 2020-09-28 2020-09-28 Orders Doctor VERONIQUE 1.2.840.114 [id number] Univers 00:00:00 00:00:00 Only Unassigned, GONZALO 350.1.13.10 ity of [place] [facility] 4.2.7.2.686 Quang as [id number] [facility] 009 Branch 2020-09-09 2020-09-12 Inpatient VIKTOR BILLINGS [facility] [id number] [place] 00:00:00 00:00:00 462 Method i 2020-08-08 2020-08-08 Outpatient R MONSERRAT, [facility] [id number] Univers 15:40:00 15:40:[address] [facility] 2020-07-11 2020-07-11 Outpatient [facility] [id number] Univers 15:40:00 [facility]40[facility] 2020-06-09 2020-06-22 Inpatient VIKTOR BILLINGS [facility] [id number] [place] 00:00:00 00:00:00 836 Method i 2020-03-19 2020-03-23 Inpatient JAIME, [facility] [id number] [place] 00:00:00 00:00:00 CHERI 742 Method i 2020-03-14 2020-03-18 Inpatient JAIME [facility] [id number] [place] 00:00:00 00:00:00 CHERI 157 Method i 2020-02-13 2020-02-13 Laboratory Lab, [facility] 1.2.840.114 [id number] 10:22:10 10:42:10 Only Fam Pob I Health 350.1.13.10 [place] 4.2.7.2.686 Professio [id number] nal [address] 2020-02-13 2020-02-13 Laboratory Lab, Adc Fam Pob I [facility] 1.2. 840.114 [id number] Univers 10:22:10 10:42:10 Only Dulce Mari 350.1.13.10 ity of [place] 4.2.7.2.686 Quang as Professio [id number] Pa dical nal 044 Branch [address] 2019-09-28 2019-09-28 Outpatient [facility] [id number] Common 09:00:00 09:00:00 t [facility] 2019-09-18 2019-09-18 Outpatient [facility] [id number] Common 09:30:00 09:30:00 t [facility] Sp[facility] t [facility] 2019-08-14 2019-08-14 Transition Jocelyne Alexandra 1.2.840.114 [id number] Univers 00:00:00 00:00:00 of Care Jovanny Sotelo 350.1.13.10 [place] [id number] [facility] 403 [place] 2019-08-14 2019-08-14 Transition Jocelyne Alexandra 1.2.840.114 [id number] 00:00:00 00:00:00 of Care Jovanny Coop[place] 350.1.13.10 [place] 4.2.7.2.686 [id number] [facility] 2019-08-10 2019-08-11 [facility] [id number] Univers 02:55:00 16:09:00 ADNAN ity of [facility] 2019-08-10 2019-08-11 [facility] 1.2.098.443 [id number] Univers 02:55:00 16:09:00 Encounter Adsharad Whitt 350.1.13.10 it[place] [id number] [facility] 081 [place] 2019-08-10 2019-08-11 [facility] 1.2.180.507 [id number] 02:55:00 16:09:00 Encounter Wes Whitt 350.1.13.10 [place] 4.2.7.2.686 [place] [id number] 081 Results Test Description Test Time Test Comments Results Result Comments Source SARS-CoV-2 (COVID-19) RNA [Presence] in Respiratory sp ecimen by 2021-10-22 00:33:54 HELENA with probe detection Test Item Value Reference Range Interpretation Comme nts SARS-CoV-2 (COVID-19) RNA [Presence] in Respiratory specimen by Not detected HELENA with probe detection (test code = 21050-7) 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 employed in a healthcare setting (test code = Un known 27024-3) Whether the patient has symptoms related to condition of interest U nknown (test code = 03694-5) Whether the patient was hospitalized for condition of interest Unkn own (test code = 76085-1) Whether the patient was admitted to intensive care unit (ICU) for U nknown condition of interest (test code = 94305-0) Whether patient resides in a congregate care setting (test code = U nknown 63728-9) status (test code = 12614-6) Unknown Date and time of symptom onset (test code = 30421-3) Unknown [id number] 09:34:08 Test Item Value Reference Range Interpretation Comments MAGNESIUM (test code = 1381532078) 1.4 mg/dL 1.7-2.4 L Lab Interpretation (test code = Abnormal 63284-8) [facility]31347[facility]2020-10-03 09:33:48 Test Item Value Reference Range Interpretation Comments NA (test code = 136 mmol/L 135-145 3441513153) K (test code = 3.3 mmol/L 3.5-5.0 L 3118813171) CL (test code = 100 mmol/L 98-108 8117634340) CO2 TOTAL (test code = 33 mmol/L 23-31 H 9522800574) AGAP (test code = 2-16 3981706531) BUN (test code = 3 mg/dL 7-23 L 1844498183) GLUCOSE (test code = 95 mg/dL 70-110 5707017175) CREATININE (test code = 0.47 mg/dL 0.50-1.04 L 5286844317) TOTAL BILI (test code = 1.5 mg/dL 0.1-1.1 H 2007340426) CALCIUM (test code = 8.1 mg/dL 8.6-10.6 L 3107489026) T PROTEIN (test code = 5.9 g/dL 6.3-8.2 L 9232961544) ALBUMIN (test code = 2.9 g/dL 3.5-5.0 L 5747641217) ALK PHOS (test code = 115 U/L 34-122 6392450750) ALTv (test code = 24 U/L 5-35 1742-6) AST(SGOT) (test code = 35 U/L 13-40 7451965367) eGFR (test code = mL/min/1.73m2 6601699208) SNOW (test code = SNOW) Association of [...] tests). Lab Interpretation Abnormal (test code = 47372-5) [facility] 09:33:28 Test Item Value Reference Range Interpretation Comments PHOSPHORUS (test code = 0535243268) 2.8 mg/dL 2.5-5.0 Lab Interpretation (test code = Normal 79960-6) [facility] [id number] 09:31:46 Test Item Value Reference Range Interpretation [...] (test code = 53.8 fL 39.0-49.9 H 28790-7) RDW-CV (test code = 19.9 % 12.0-15.5 H 788-0) PLT (test code = See_Comment L [Automated 777-3) message] The sy stem which generated this result transmitted reference range : 166 - 358 10*3/ ?L. The reference r davi was not used to interpret this result as normal/abnormal . MPV (test code = 10.9 fL 9.5-12.9 98093-7) IPF % (test code = 3.6 % 1.3-7.7 Platelet count 8077047731) measured by fluorescence method. NRBC/100 WBC (test See_Comment [Automat ed code = 8642553039) message] The system which generated this result transmitted reference range : 0.0 - 10.0 /100 WBCs. The refer ence range was not u sed to interpret th is result as normal/abnormal . NRBC x10^3 (test code See_Comment [Auto mated = 8540455530) message] The s ystem which generated this result transmitted reference range : 10*3/?L. The reference range was not used to interpret this result as normal/abnormal . GRAN MAT (NEUT) % 68.1 % (test code = 770-8) IMM GRAN % (test code 1.10 % = 1992328153) LYMPH % (test code = 15.5 % 736-9) MONO % (test code = 11.3 % 5905-5) EOS % (test code = 3.4 % 713-8) BASO % (test code = 0.6 % 706-2) GRAN MAT x10^3(ANC) 2.42 10*3/uL 1.88-7.09 (test code = 1314152963) IMM GRAN x10^3 (test 0.04 10*3/uL 0.00-0.06 code = 2479489710) LYMPH x10^3 (test code 0.55 10*3/uL 1.32-3.29 L = 731-0) MONO x10^3 (test code 0.40 10*3/uL 0.33-0.92 = 742-7) EOS x10^3 (test code = 0.12 10*3/uL 0.03-0.39 711-2) BASO x10^3 (test code <0.03 0.01-0.07 = 704-7) Lab Interpretation Abnormal (test code = 99119-4) [facility] WITH [id number] 10:47:09 Test Item Value Reference Range Interpretation [...] (test code = 52.2 fL 39.0-49.9 H 97950-3) RDW-CV (test code = 18.6 % 12.0-15.5 H 788-0) PLT (test code = See_Comment L [Automated 777-3) message] The sy stem which generated this result transmitted reference range : 166 - 358 10*3/ ?L. The reference r davi was not used to interpret this result as normal/abnormal . MPV (test code = 10.1 fL 9.5-12.9 03170-1) IPF % (test code = 3.2 % 1.3-7.7 Platelet count 3125064801) measured by fluorescence method. NRBC/100 WBC (test See_Comment [Automat ed code = 7768953780) message] The system which generated this result transmitted reference range : 0.0 - 10.0 /100 WBCs. The refer ence range was not u sed to interpret th is result as normal/abnormal . NRBC x10^3 (test code See_Comment [Auto mated = 8192516264) message] The s ystem which generated this result transmitted reference range : 10*3/?L. The reference range was not used to interpret this result as normal/abnormal . GRAN MAT (NEUT) % 65.1 % (test code = 770-8) IMM GRAN % (test code 1.20 % = 5853452324) LYMPH % (test code = 16.9 % 736-9) MONO % (test code = 11.5 % 5905-5) EOS % (test code = 4.5 % 713-8) BASO % (test code = 0.8 % 706-2) GRAN MAT x10^3(ANC) 1.58 10*3/uL 1.88-7.09 L (test code = 9257589680) IMM GRAN x10^3 (test 0.03 10*3/uL 0.00-0.06 code = 3236081006) LYMPH x10^3 (test code 0.41 10*3/uL 1.32-3.29 L = 731-0) MONO x10^3 (test code 0.28 10*3/uL 0.33-0.92 L = 742-7) EOS x10^3 (test code = 0.11 10*3/uL 0.03-0.39 711-2) BASO x10^3 (test code <0.03 0.01-0.07 = 704-7) POLYCHROMASIA (test 2+ See_Comment [Automa josemanuel code = 03617-4) message] The system which generated this result transmitted reference range : 2+. The referen ce range was not u sed to interpret th is result as normal/abnormal . LG GRAN LYMPHS (test Rare Rare code = 7129745070) Lab Interpretation Abnormal (test code = 31820-1) [facility] ([id number][facility]2020-10-02 10:19:28 Test Item Value Reference Range Interpretation Comments NA (test code = 135 mmol/L 135-145 1192136646) K (test code = 3.4 mmol/L 3.5-5.0 L 8387796110) CL (test code = 104 mmol/L 98-108 9977057586) CO2 TOTAL (test code = 27 mmol/L 23-31 7001877287) AGAP (test code = 2-16 4145752531) BUN (test code = 4 mg/dL 7-23 L 1442765756) GLUCOSE (test code = 97 mg/dL 70-110 2751140473) CREATININE (test code = 0.45 mg/dL 0.50-1.04 L 0255047137) TOTAL BILI (test code = 1.7 mg/dL 0.1-1.1 H 0211250811) CALCIUM (test code = 8.2 mg/dL 8.6-10.6 L 8737708339) T PROTEIN (test code = 6.0 g/dL 6.3-8.2 L 8146996856) ALBUMIN (test code = 3.1 g/dL 3.5-5.0 L 7069129347) ALK PHOS (test code = 120 U/L 34-122 7390116808) ALTv (test code = 26 U/L 5-35 1742-6) AST(SGOT) (test code = 39 U/L 13-40 8653616087) eGFR (test code = mL/min/1.73m2 4493932066) SNOW (test code = SNOW) Association of [...] tests). Lab Interpretation Abnormal (test code = 79918-7) [facility] [id number] 02:50:27COVID DMT InterpretationInterpretation/Recommendations: Molecular NAAT Tests for [...] COVID-19 testing the patient has had at [facility], including molecular NAAT testing (more commonly known as PCR testing and Rapid ID Now testing) and antibody testing. It does not take into account any testing that a patient has had outside of the [facility] medical record. [facility] LABORATORY SERVICESCOVID Resu [id number]-[id number]-7 NAAT (no units) ? ? Date ? Value ? 02/13/2020 ? Not Detected ? SARS-CoV-2 Rapid ID NOW (no units) ? ? Date ? Value ? 09/29/2020 ? Not Detected ? ? ? 08/10/2019 ? Not Detected ? [facility]ORAT[facility] SERVICESDo[facility] at RenaissanceCB WITH [id number] 10:31:29 Test Item Value Reference Range Interpretation [...] (test code = 52.3 fL 39.0-49.9 H 87520-4) RDW-CV (test code = 18.4 % 12.0-15.5 H 788-0) PLT (test code = See_Comment LL [Automated 777-3) message] The sy stem which generated this result transmitted reference range : 166 - 358 10*3/ ?L. The reference r davi was not used to interpret this result as normal/abnormal . MPV (test code = 11.2 fL 9.5-12.9 78815-1) IPF % (test code = 3.9 % 1.3-7.7 Platelet count 4007639158) measured by fluorescence method. NRBC/100 WBC (test See_Comment [Automat ed code = 4407624314) message] The system which generated this result transmitted reference range : 0.0 - 10.0 /100 WBCs. The refer ence range was not u sed to interpret th is result as normal/abnormal . NRBC x10^3 (test code <0.01 See_Comment [Auto mated = 8090526637) message] The s ystem which generated this result transmitted reference range : 10*3/?L. The reference range was not used to interpret this result as normal/abnormal . GRAN MAT (NEUT) % 57.5 % (test code = 770-8) IMM GRAN % (test code 0.50 % = 5362306806) LYMPH % (test code = 20.7 % 736-9) MONO % (test code = 13.3 % 5905-5) EOS % (test code = 6.9 % 713-8) BASO % (test code = 1.1 % 706-2) GRAN MAT x10^3(ANC) 1.08 10*3/uL 1.88-7.09 L (test code = 3735296104) IMM GRAN x10^3 (test <0.03 0.00-0.06 code = 3760874937) LYMPH x10^3 (test code 0.39 10*3/uL 1.32-3.29 L = 731-0) MONO x10^3 (test code 0.25 10*3/uL 0.33-0.92 L = 742-7) EOS x10^3 (test code = 0.13 10*3/uL 0.03-0.39 711-2) BASO x10^3 (test code <0.03 0.01-0.07 = 704-7) BASO STIPPLING (test Present A code = 703-9) ELLIPTO/OVAL (test 2+ See_Comment A [Automat ed code = 83392-0) message] The system which generated this result transmitted reference range : (none). The reference range was not used to interpret this result as normal/abnormal . POLYCHROMASIA (test 2+ See_Comment [Automa josemanuel code = 35706-7) message] The system which generated this result transmitted reference range : 2+. The referen ce range was not u sed to interpret th is result as normal/abnormal . Lab Interpretation Abnormal (test code = 09053-4) [facility]. METABOLIC PANEL (31871)2020-10-01 09:19:22 Test Item Value Reference Range Interpretation Comments NA (test code = 135 mmol/L 135-145 7911921894) K (test code = 4.0 mmol/L 3.5-5.0 8678687382) CL (test code = 107 mmol/L 98-108 4177739470) CO2 TOTAL (test code = 24 mmol/L 23-31 3272777599) AGAP (test code = 2-16 7849025292) BUN (test code = 7 mg/dL 7-23 0452718728) GLUCOSE (test code = 93 mg/dL 70-110 6413871835) CREATININE (test code = 0.47 mg/dL 0.50-1.04 L 6427834211) TOTAL BILI (test code = 1.6 mg/dL 0.1-1.1 H 0256634574) CALCIUM (test code = 8.1 mg/dL 8.6-10.6 L 0477741988) T PROTEIN (test code = 5.8 g/dL 6.3-8.2 L 8237586779) ALBUMIN (test code = 2.8 g/dL 3.5-5.0 L 2514110832) ALK PHOS (test code = 106 U/L 34-122 6245414458) ALTv (test code = 23 U/L 5-35 1742-6) AST(SGOT) (test code = 39 U/L 13-40 7001726284) eGFR (test code = mL/min/1.73m2 4119330296) SNOW (test code = SNOW) Association of [...] tests). Lab Interpretation Abnormal (test code = 39754-5) [id number] 20:47:45 Test Item Value Reference Range Interpretation Comments TROPONIN I (test 0.002 ng/mL See_Comment [Automated code = 6732019965) message] The system which generated this result [...] ? Lab Interpretation Normal (test code = 08370-5) [facility] [id number] 19:11:57 Test Item Value Reference Range Interpretation Comments URINE CULTURE (test code <10,000 CFU/mL = 630-4) Gram-Positive Cocci [facility] RenaissanceFECAL PATHOGENS BY [id number] 18:17:03 Test Item Value Reference Range Interpretation Comments Campylobacter (jejuni, Negative Negative, coli and upsaliensis) Indeterminate, (test code = 24299-2) See comment Plesiomonas shigelloides Negative Negative, (test code = 28249-3) Indeterminate, See comment Salmonella (test code = Negative Negative, 62952-7) Indeterminate, See comment Yersinia enterocolitica Negative Negative, (test code = 61223-5) Indeterminate, See comment Vibrio (test code = Negative Negative, 19121-2) Indeterminate, See comment Vibrio cholerae (test Negative Negative, code = 48950-0) Indeterminate, See comment Enteroaggregative E. Negative Negative, coli (EAEC) (test code = Indeterminate, 12622-3) See comment Enteropathogenic E. coli Negative Negative, N/A, (EPEC) (test code = Indeterminate, 91420-8) See comment Enterotoxigenic E. coli Negative Negative, (ETEC) (test code = Indeterminate, 14074-8) See comment Shiga toxin-Producing E. Negative Negative, coli (STEC) (test code = Indeterminate, 31221-7) See comment Shigella/Enteroinvasive Negative Negative, E. coli (EIEC) (test Indeterminate, code = 76204-0) See comment Cryptosporidium (test Negative Negative, code = 12733-1) Indeterminate, See comment Cyclospora cayetanensis Negative Negative, (test code = 09844-5) Indeterminate, See comment Entamoeba histolytica Negative Negative, (test code = 92798-4) Indeterminate, See comment Giardia lamblia (test Negative Negative, code = 91240-6) Indeterminate, See comment Adenovirus F 40/41 (test Negative Negative, code = 20732-5) Indeterminate, See comment Astrovirus (test code = Negative Negative, 18428-3) Indeterminate, See comment Norovirus GI/GII (test Negative Negative, code = 08020-9) Indeterminate, See comment Rotavirus A (test code = Negative Negative, 29328-8) Indeterminate, See comment Sapovirus (test code = Negative Negative, 70766-9) Indeterminate, See comment Clostridioides Positive Negative, A (Clostridium) difficile Indeterminate, Toxin A/B (test code = See comment 63960-0) SNOW (test code = SNOW) Based on [...] the binary toxin gene (CDT), and the oofsag-ggsy-mrei deletion at nucleotide 117 within the gene [...] organism. Lab Interpretation (test Abnormal code = 56309-1) [facility] ([facility]AIAC) [id number] 14:26:32 Test Item Value Reference Range Interpretation Comments Occult (guaiac) Blood (test code = Negative Negative 2335-8) Lab Interpretation (test code = Normal 12053-4) [facility] WITH [id number] 13:54:12 Test Item Value Reference Range Interpretation [...] (test code = 52.9 fL 39.0-49.9 H 67090-8) RDW-CV (test code = 18.3 % 12.0-15.5 H 788-0) PLT (test code = See_Comment LL [Automated 777-3) message] The sy stem which generated this result transmitted reference range : 166 - 358 10*3/ ?L. The reference r davi was not used to interpret this result as normal/abnormal . MPV (test code = 10.8 fL 9.5-12.9 84707-0) IPF % (test code = 4.2 % 1.3-7.7 Platelet count 9537734550) measured by fluorescence method. NRBC/100 WBC (test See_Comment [Automat ed code = 6121314120) message] The system which generated this result transmitted reference range : 0.0 - 10.0 /100 WBCs. The refer ence range was not u sed to interpret th is result as normal/abnormal . NRBC x10^3 (test code <0.01 See_Comment [Auto mated = 0547669295) message] The s ystem which generated this result transmitted reference range : 10*3/?L. The reference range was not used to interpret this result as normal/abnormal . GRAN MAT (NEUT) % 60.0 % (test code = 770-8) IMM GRAN % (test code 0.40 % = 8789288742) LYMPH % (test code = 20.6 % 736-9) MONO % (test code = 11.3 % 5905-5) EOS % (test code = 6.9 % 713-8) BASO % (test code = 0.8 % 706-2) GRAN MAT x10^3(ANC) 1.49 10*3/uL 1.88-7.09 L (test code = 5075676378) IMM GRAN x10^3 (test <0.03 0.00-0.06 code = 8382605477) LYMPH x10^3 (test code 0.51 10*3/uL 1.32-3.29 L = 731-0) MONO x10^3 (test code 0.28 10*3/uL 0.33-0.92 L = 742-7) EOS x10^3 (test code = 0.17 10*3/uL 0.03-0.39 711-2) BASO x10^3 (test code <0.03 0.01-0.07 = 704-7) Lab Interpretation Abnormal (test code = 18080-3) [facility]COM. METABOLIC PANEL (08675)2020-09-30 12:47:49 Test Item Value Reference Range Interpretation Comments NA (test code = 135 mmol/L 135-145 2058064563) K (test code = 4.0 mmol/L 3.5-5.0 2967335098) CL (test code = 108 mmol/L 98-108 8522106690) CO2 TOTAL (test code = 23 mmol/L 23-31 1986757091) AGAP (test code = 2-16 1363269319) BUN (test code = 8 mg/dL 7-23 8559191065) GLUCOSE (test code = 109 mg/dL 70-110 9033968566) CREATININE (test code = 0.52 mg/dL 0.50-1.04 3711287113) TOTAL BILI (test code = 1.7 mg/dL 0.1-1.1 H 4541059119) CALCIUM (test code = 8.0 mg/dL 8.6-10.6 L 1896842540) T PROTEIN (test code = 5.7 g/dL 6.3-8.2 L 3167163961) ALBUMIN (test code = 2.7 g/dL 3.5-5.0 L 2652411751) ALK PHOS (test code = 106 U/L 34-122 5864311838) ALTv (test code = 22 U/L 5-35 1742-6) AST(SGOT) (test code = 34 U/L 13-40 2872931365) eGFR (test code = mL/min/1.73m2 7176669376) SNOW (test code = SNOW) Association of [...] tests). Lab Interpretation Abnormal (test code = 85002-5) [facility] RenaissanceFECAL [id number] 11:49:39 Test Item Value Reference Range Interpretation Comments Fecal Leukocytes (test code = Positive Negative A 6302797028) Lab Interpretation (test code = Abnormal 08580-8) [facility] RenaissanceN-TERMINAL [id number] 10:20:53 Test Item Value Reference Range Interpretation Comments NT-proBNP (test code 68 pg/mL See_Comment [Autom ated = 2087310102) message] The system which generated this result transmitted reference range : <=125. The reference range was not used to interpret this result as normal/abnormal . SNOW (test code = SNOW) Biotin has been reported to cause a negative bias, interpret results relative to patient's use of biotin. Lab Interpretation Normal (test code = 44490-0) [facility] RenaissanceCLOSTRIDIUM DIFFICILE [id number] 05:18:16 Test Item Value Reference Range Interpretation Comments Clostridioides (Clostridium) Negative Negative difficile (test code = 77348-3) Lab Interpretation (test code = Normal 15740-6) [facility] RenaissancePOCT GLUCOSE (AUTOMATED)2020-09-30 00:54:42 Test Item Value Reference Range Interpretation Comments POCT GLU (test code = 1583716407) 111 mg/dL 70-110 H Lab Interpretation (test code = Abnormal 12030-5) [facility] RenaissanceBASIC METABOLIC PANEL (NA, K, CL, CO2, GLUCOSE, BUN, CREATININE, CA)2020-09-29 22:08:22 Test Item Value Reference Range Interpretation Comments NA (test code = 135 mmol/L 135-145 8976952063) K (test code = 3.7 mmol/L 3.5-5.0 1275737342) CL (test code = 108 mmol/L 98-108 3621226131) CO2 TOTAL (test code = 22 mmol/L 23-31 L 3566337395) AGAP (test code = 2-16 6191061136) BUN (test code = 9 mg/dL 7-23 6570678616) GLUCOSE (test code = 104 mg/dL 70-110 3106803850) CREATININE (test code = 0.51 mg/dL 0.50-1.04 1337769381) CALCIUM (test code = 7.9 mg/dL 8.6-10.6 L 3629204067) eGFR (test code = mL/min/1.73m2 5595356624) SNOW (test code = SNOW) Association of [...] tests). Lab Interpretation Abnormal (test code = 18608-5) [facility] RenaissanceHEMOGLOBIN2021-06-21 21:41:20 Test Item Value Reference Range Interpretation Comments HGB (test code = 718-7) 7.4 g/dL 11.6-15.0 L Lab Interpretation (test code = Abnormal 52409-3) [facility] RenaissanceVITAMIN B12, [id number] 20:39:52 Test Item Value Reference Range Interpretation Comments VIT B12 (test code = 212 pg/mL 240-930 L 4905946066) SNOW (test code = SNOW) Biotin has been reported to cause a positive bias, interpret results relative to patient's use of biotin. 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.[facility] RenaissanceC-REACTIVE [id number] 17:01:56 Test Item Value Reference Range Interpretation Comments CRP (test code = 6914001462) 4.7 mg/dL <0.8 H Lab Interpretation (test code = Abnormal 68245-6) [facility] RenaissanceVITAMIN D, [id number] 16:43:29 Test Item Value Reference Range Interpretation Comments VIT D 25OH (test code = <13 25-80 L 93367-6) SNOW (test code = SNOW) Deficiency: <20 ng/mLInsufficiency: 20-24 ng/mLOptimal: 25-80 ng/mL Lab Interpretation (test Abnormal code = 43511-1) [facility] RenaissancePROCALCITONIN2021-06-21 16:15:30 Test Item Value Reference Range Interpretation Comments Procalcitonin (test 0.08 ng/mL <0.07 H code = 4628181649) SNOW (test code = SNOW) INTERPRETATION OF [...] biotics/default.asp Lab Interpretation Abnormal (test code = 82833-3) [facility] RenaissanceOSMOLALITY [id number] 15:35:14 Test Item Value Reference Range Interpretation Comments OSMO U (test code = See_Comment [Automa josemanuel message] 7171062565) The system [employer] generated this result transmitted ref erence range: 50-1,100 mOsm/kg. The re ference range was not u sed to interpret this result as normal/abnor mal. Lab Interpretation (test Normal code = 45179-5) [facility] RenaissanceTROPONIN [id number] 14:04:56 Test Item Value Reference Range Interpretation Comments TROPONIN I (test 0.002 ng/mL See_Comment [Automated code = 8499393790) message] The system which generated this result [...] ? Lab Interpretation Normal (test code = 85138-3) [facility] RenaissanceCT ABDOMEN PELVIS W [id number] 13:37:17 1. ?Findings concerning for infectious or [...] reviewed this study and agree with theabove report.[facility] WITH [id number] 11:41:25 Test Item Value Reference Range Interpretation [...] (test code = 52.4 fL 39.0-49.9 H 13639-6) RDW-CV (test code = 18.2 % 12.0-15.5 H 788-0) PLT (test code = See_Comment LL [Automated 777-3) message] The system which generated this result transmit josemanuel reference range : 166 - 358 10*3/ ?L. The reference range was not u sed to interpret th is result as normal/abnormal . MPV (test code = Not Measure d 06391-3) IPF % (test code = 4.3 % 1.3-7.7 Platelet count 9477244613) measured by fluorescence method. NRBC/100 WBC (test See_Comment [Automat ed code = 3224549231) message] The system which generated this result transmit josemanuel reference range : 0.0 - 10.0 /100 WBCs. The reference range was not used to interpret this result as normal/abnormal . NRBC x10^3 (test code <0.01 See_Comment [Auto mated = 6625407657) message] The system which generated this result transmit josemanuel reference range : 10*3/?L. The reference range was not used to interpret this result as normal/abnormal . GRAN MAT (NEUT) % 74.4 % (test code = 770-8) IMM GRAN % (test code 0.50 % = 7031705824) LYMPH % (test code = 10.3 % 736-9) MONO % (test code = 12.3 % 5905-5) EOS % (test code = 2.0 % 713-8) BASO % (test code = 0.5 % 706-2) GRAN MAT x10^3(ANC) 3.02 10*3/uL 1.88-7.09 (test code = 9145397890) IMM GRAN x10^3 (test <0.03 0.00-0.06 code = 4327200189) LYMPH x10^3 (test 0.42 10*3/uL 1.32-3.29 L code = 731-0) MONO x10^3 (test code 0.50 10*3/uL 0.33-0.92 = 742-7) EOS x10^3 (test code 0.08 10*3/uL 0.03-0.39 = 711-2) BASO x10^3 (test code <0.03 0.01-0.07 = 704-7) PLT ESTIMATE (test Decreased Normal A code = 9317-9) SNOW (test code = SNOW) CBC smear reduced platelet Lab Interpretation Abnormal (test code = 19545-1) [facility] RenaissanceN-TERMINAL [id number] 11:07:24 Test Item Value Reference Range Interpretation Comments NT-proBNP (test code 79 pg/mL See_Comment [Autom ated = 7381571067) message] The system which generated this result transmitted reference range : <=125. The reference range was not used to interpret this result as normal/abnormal . SNOW (test code = SNOW) Biotin has been reported to cause a negative bias, interpret results relative to patient's use of biotin. Lab Interpretation Normal (test code = 66680-8) [facility] RenaissanceIRON [id number] 11:04:41 Test Item Value Reference Range Interpretation Comments IRON (test code = 5000341771) 31 ug/dL 50-160 L TIBC (test code = 8187163137) 295 ug/dL 250-410 % FE SAT (test code = 1693595456) 11 % 20-50 L Lab Interpretation (test code = Abnormal 09263-8) [facility] RenaissancePROTEIN CREAT RATIO URINE [id number] 10:57:19 Test Item Value Reference Range Interpretation Comments T. PROT U (test code = 2888-6) 9 mg/dL CREAT U (test code = 4628544780) 187.5 mg/dL Protein/Creatinine Ratio Urine 0.0-2.0 (test code = 3532505106) [facility] RenaissanceSODIUM, URINE [id number] 10:53:21 Test Item Value Reference Range Interpretation Comments NA URINE (test code = 2201860361) 30 mmol/L [facility] RenaissanceSEDIMENTATION [id number] 10:33:04 Test Item Value Reference Range Interpretation Comments ESR (test code = See_Comment [Automated message] 1311234491) The system [employer] generated this result transmitted ref erence range: 0 - 20 m m/HR. The reference r davi was not used to interpret this result as normal/abnor mal. Lab Interpretation (test Normal code = 14290-5) [facility] RenaissancePROTHROMBIN TIME / [id number] 09:43:39 Test Item Value Reference Range Interpretation Comments PROTIME PATIENT (test See_Comment H [Auto mated message] code = 5964-2) The system [employer] generated this result transmitted ref erence range: 12.0 - 1 4.7 Seconds. The reference range was not used to int erpret this result as normal/abnormal . INR (test code = 6301-6) Nor mal INR <1.1; Warfarin Therap eutic range 2.0 to 3. 0 or 2.5 to 3.5, dep ending upon the indica tions. Lab Interpretation (test Abnormal code = 34939-1) [facility] RenaissanceLactic Acid Whole [id number] 08:42:38 Test Item Value Reference Range Interpretation Comments LACTIC ACID (test code = 1.47 mmol/L 0.50-2.20 2366744006) Lab Interpretation (test code = Normal 89713-3) [facility] RenaissanceFERRITIN [id number] 07:31:09 Test Item Value Reference Range Interpretation Comments FERRITIN (test code = 12.2 ng/mL 11.0-264.0 9584552959) SNOW (test code = SNOW) Biotin has been reported to cause a negative bias, interpret results relative to patient's use of biotin. Lab Interpretation (test Normal code = 70429-2) [facility] RenaissanceTHYROID STIMULATING [id number] 07:27:08 Test Item Value Reference Range Interpretation Comments TSH (test code = See_Comment [Automated message] 5776089584) The system [employer] generated this result transmitted ref erence range: 0.45 - 4 .70 mIU/L. The refe rence range was not u sed to interpret this result as normal/abnor mal. Lab Interpretation (test Normal code = 06643-2) [facility] RenaissanceGLYCOSYLATED HEMOGLOBIN (A1C)2020-09-29 07:05:40 Test Item Value Reference Range Interpretation Comments HGB A1C (test code = 5.0 % 4.0-5.7 4548-4) SNOW (test code = SNOW) Reference RangesNormal: <5.7%Prediabetes: 5.7 - 6.4%Diabetes: > 6.5% Lab Interpretation (test Normal code = 46664-9) [facility] RenaissanceURIC [id number] 07:05:35 Test Item Value Reference Range Interpretation Comments URIC ACID (test code = 8764702073) 4.2 mg/dL 2.9-6.0 Lab Interpretation (test code = Normal 37675-0) [facility] RenaissanceCREATINE [id number] 07:05:30 Test Item Value Reference Range Interpretation Comments CK (test code = 6462691844) 192 U/L 33-194 Lab Interpretation (test code = Normal 97389-2) [facility] RenaissanceN-TERMINAL [id number] 07:05:30 Test Item Value Reference Range Interpretation Comments NT-proBNP (test code 94 pg/mL See_Comment [Autom ated = 6834401063) message] The system which generated this result transmitted reference range : <=125. The reference range was not used to interpret this result as normal/abnormal . SNOW (test code = SNOW) Biotin has been reported to cause a negative bias, interpret results relative to patient's use of biotin. Lab Interpretation Normal (test code = 04631-9) [facility] RenaissanceMAGNESIUM2021-06-21 07:04:24 Test Item Value Reference Range Interpretation Comments MAGNESIUM (test code = 3472931818) 1.8 mg/dL 1.7-2.4 Lab Interpretation (test code = Normal 63500-6) [facility] RenaissancePHOSPHORUS2021-06-21 07:03:39 Test Item Value Reference Range Interpretation Comments PHOSPHORUS (test code = 2421436786) 2.2 mg/dL 2.5-5.0 L Lab Interpretation (test code = Abnormal 94311-6) [facility] RenaissanceLIPID PANEL (14556)(TOTAL CHOLESTEROL, TRIGLYCERIDES, HDL)2020-09-29 06:56:06 Test Item Value Reference Range Interpretation Comments CHOL (test code = 132 mg/dL 120-200 7723925923) HDL (test code = 41 mg/dL >50 L 5819946290) HDLC RATIO (test code = See_Comment [Au tomated message] 4929799161) The system [employer] generated this result transmit josemanuel reference range : <=4.5. The refe rence range was not u sed to interpret th is result as normal/abnormal . TRIG (test code = 73 mg/dL 30-170 2243296578) LDL CHOL (test code = 76 mg/dL See_Comment [Auto mated message] 58071-5) The system [employer] generated this result transmit josemanuel reference range : <=160. The refe rence range was not u sed to interpret th is result as normal/abnormal . VLDL (test code = 15 mg/dL 5-60 9260433901) Lab Interpretation (test Abnormal code = 79173-7) [facility] RenaissanceCOVID-19 (ID NOW RAPID TESTING)2020-09-29 06:24:26 Test Item Value Reference Range Interpretation Comments SARS-CoV-2 Rapid ID NOW Not Detected Not Detected (test code = 51663-4) SNOW (test code = SNOW) ID NOW COVID-19 Assay is an isothermal nucleic acid amplification test intended for the qualitative detection of nucleic acid from SARS-CoV-2 viral RNA in nasopharyngeal ([employer]) specimens. It is used under Emergency Use [...] indicated. Lab Interpretation Normal (test code = 44427-3) [facility]43[facility]31 Test Item Value Reference Range Interpretation Comments APPEARANCE (test code = Clear Clear 7737487628) COLOR (test code = Rosanne Yellow A 4547716259) PH (test code = 4.8-8.0 8756071010) SP GRAVITY (test code = 1.003-1.030 1079116890) GLU U QUAL (test code = Normal Normal 8134446779) BLOOD (test code = Negative Negative 0429072555) KETONES (test code = Negative Negative 4805022663) PROTEIN (test code = 30 mg/dL Negative A 2887-8) UROBILIN (test code = Normal Normal 8208336343) BILIRUBIN (test code = Negative Negative 3596400153) NITRITE (test code = Negative Negative 4762013509) LEUK RANULFO (test code = 25/uL Negative A 2226827520) RBC/HPF (test code = See_Comment [Autom ated message] 1435598393) The system [employer] generated this result transmitted ref erence range: 0 - 3 HP F. The reference range was not used to int erpret this result as normal/abnormal . WBC/HPF (test code = See_Comment [Autom ated message] 0838649565) The system [employer] generated this result transmitted ref erence range: 0 - 5 HP F. The reference range was not used to int erpret this result as normal/abnormal . BACTERIA (test code = Few Negative A 4160374550) MUCOUS (test code = Moderate Negative LPF A 3518321640) SQ EPITH (test code = HPF 3563018065) Lab Interpretation (test Abnormal code = 18296-8) [facility] WITH [id number] 04:39:35 Test Item Value Reference Range Interpretation [...] (test code = 51.3 fL 39.0-49.9 H 91235-9) RDW-CV (test code = 18.1 % 12.0-15.5 H 788-0) PLT (test code = See_Comment L [Automated 777-3) message] The system which generated this result transmit josemanuel reference range : 166 - 358 10*3/ ?L. The reference range was not u sed to interpret th is result as normal/abnormal . MPV (test code = 11.1 fL 9.5-12.9 62135-0) IPF % (test code = 3.7 % 1.3-7.7 Platelet count 2553668867) measured by fluorescence method. NRBC/100 WBC (test See_Comment [Automat ed code = 1972288461) message] The system which generated this result transmit josemanuel reference range : 0.0 - 10.0 /100 WBCs. The reference range was not used to interpret this result as normal/abnormal . NRBC x10^3 (test code <0.01 See_Comment [Auto mated = 0897706208) message] The system which generated this result transmit josemanuel reference range : 10*3/?L. The reference range was not used to interpret this result as normal/abnormal . GRAN MAT (NEUT) % 76.4 % (test code = 770-8) IMM GRAN % (test code 0.80 % = 6405431921) LYMPH % (test code = 9.4 % 736-9) MONO % (test code = 11.3 % 5905-5) EOS % (test code = 1.5 % 713-8) BASO % (test code = 0.6 % 706-2) GRAN MAT x10^3(ANC) 4.07 10*3/uL 1.88-7.09 (test code = 6054362543) IMM GRAN x10^3 (test 0.04 10*3/uL 0.00-0.06 code = 2375932578) LYMPH x10^3 (test 0.50 10*3/uL 1.32-3.29 L code = 731-0) MONO x10^3 (test code 0.60 10*3/uL 0.33-0.92 = 742-7) EOS x10^3 (test code 0.08 10*3/uL 0.03-0.39 = 711-2) BASO x10^3 (test code 0.03 10*3/uL 0.01-0.07 = 704-7) PLT ESTIMATE (test Decreased Normal A code = 9317-9) SNOW (test code = SNOW) Juan slide adgrees to decreased Platelet Lab Interpretation Abnormal (test code = 44802-6) [facility]. METABOLIC PANEL (62319)2020-09-29 04:25:42 Test Item Value Reference Range Interpretation Comments NA (test code = 134 mmol/L 135-145 L 7976485686) K (test code = 3.2 mmol/L 3.5-5.0 L 5237749319) CL (test code = 104 mmol/L 98-108 8775525903) CO2 TOTAL (test code = 24 mmol/L 23-31 2706342364) AGAP (test code = 2-16 9895214795) BUN (test code = 8 mg/dL 7-23 7745358346) GLUCOSE (test code = 105 mg/dL 70-110 7864244217) CREATININE (test code = 0.51 mg/dL 0.50-1.04 6220090393) TOTAL BILI (test code = 2.5 mg/dL 0.1-1.1 H 6879099033) CALCIUM (test code = 8.2 mg/dL 8.6-10.6 L 1373136066) T PROTEIN (test code = 6.3 g/dL 6.3-8.2 1363799253) ALBUMIN (test code = 3.1 g/dL 3.5-5.0 L 3502032839) ALK PHOS (test code = 136 U/L 34-122 H 3693339420) ALTv (test code = 24 U/L 5-35 1742-6) AST(SGOT) (test code = 30 U/L 13-40 6617568865) eGFR (test code = mL/min/1.73m2 8654250197) SNOW (test code = SNOW) Association of [...] tests). 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 employed in a healthcare 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 (test code = 75596-4) Whether the patient has symptoms related to condition of interest (test code = 31647-2) Patient was hospitalized because of this condition (test code = 65334-3) Whether the patient was admitted to intensive care unit (ICU) for condition of interest (test code = 24226-1) Whether patient resides in a congregate care setting (test code = 11303-6) SARS-CoV-2 (COVID-19) RNA [Presence] in Respiratory specimen by HELENA with probe [id number] 02:47:43 Test Item Value Reference Range Interpretation Comments SARS-CoV-2 (COVID-19) RNA Not detected Not-Detected [Presence] in Respiratory specimen by HELENA with probe detection (test code = 93936-6) SARS-CoV-2 (COVID-19) RNA [Presence] in Respiratory specimen by HELENA with probe [id number] 16:32:37 Test Item Value Reference Range Interpretation Comments SARS-CoV-2 (COVID-19) RNA Not detected Not-Detected [Presence] in Respiratory specimen by HELENA with probe detection (test code = 51509-7) SARS-CoV-2 (COVID-19) RNA [Presence] in Respiratory specimen by HELENA with probe dijskbgoy1863-94-79 05:29:57 Test Item Value Reference Range Interpretation Comments SARS-CoV-2 (COVID-19) RNA Not detected Not-Detected [Presence] in Respiratory specimen by HELENA with probe detection (test code = 87597-5) CT ABDOMEN PELVIS W [id number] 19:27:49 1. ?No evidence of small bowel [...] reviewed this study and agree with the abovereport.[facility] WITH [id number] 11:56:00 Test Item Value Reference Range Interpretation [...] (test code = 58.0 fL 39-49.9 H 88844-5) RDW-CV (test code = 16.6 % 12-15.5 H 788-0) PLT (test code = See_Comment LL [Automated 777-3) message] The sy stem which generated this result transmitted reference range : 166 - 358 10*3/ ?L. The reference r davi was not used to interpret this result as normal/abnormal . MPV (test code = 11.0 fL 9.5-12.9 03354-5) IPF % (test code = 5.5 % 1.3-7.7 Platelet count 4493209507) measured by fluorescence method. NRBC/100 WBC (test See_Comment [Automat ed code = 4462269009) message] The system which generated this result transmitted reference range : 0.0 - 10.0 /100 WBCs. The refer ence range was not u sed to interpret th is result as normal/abnormal . NRBC x10^3 (test code <0.01 See_Comment [Auto mated = 0200658274) message] The s ystem which generated this result transmitted reference range : 10*3/?L. The reference range was not used to interpret this result as normal/abnormal . GRAN MAT (NEUT) % 57.6 % (test code = 770-8) IMM GRAN % (test code 0.00 % = 3714302516) LYMPH % (test code = 27.1 % 736-9) MONO % (test code = 11.8 % 5905-5) EOS % (test code = 3.1 % 713-8) BASO % (test code = 0.4 % 706-2) GRAN MAT x10^3(ANC) 1.47 10*3/uL 1.88-7.09 L (test code = 3575290728) IMM GRAN x10^3 (test <0.03 0-0.06 code = 9086374200) LYMPH x10^3 (test code 0.69 10*3/uL 1.32-3.29 L = 731-0) MONO x10^3 (test code 0.30 10*3/uL 0.33-0.92 L = 742-7) EOS x10^3 (test code = 0.08 10*3/uL 0.03-0.39 711-2) BASO x10^3 (test code <0.03 0.01-0.07 = 704-7) Lab Interpretation Abnormal (test code = 36936-8) [facility] MET[facility]OLIC PANEL (58083)2019-08-11 10:42:00 Test Item Value Reference Range Interpretation Comments NA (test code = 138 mmol/L 135-145 6557072181) K (test code = 3.8 mmol/L 3.5-5 6060446931) CL (test code = 108 mmol/L 98-108 9009984214) CO2 TOTAL (test code = 24 mmol/L 23-31 8517521632) AGAP (test code = 2-16 8531204940) BUN (test code = 10 mg/dL 7-23 3947014827) GLUCOSE (test code = 108 mg/dL 70-110 2332996740) CREATININE (test code = 0.43 mg/dL 0.5-1.04 L 5233283584) TOTAL BILI (test code = 2.5 mg/dL 0.1-1.1 H 4989661961) CALCIUM (test code = 8.4 mg/dL 8.6-10.6 L 2564829388) T PROTEIN (test code = 6.1 g/dL 6.3-8.2 L 7198315991) ALBUMIN (test code = 3.1 g/dL 3.5-5 L 9544404560) ALK PHOS (test code = 102 U/L 34-122 7334790260) ALTv (test code = 52 U/L 5-35 H 1742-6) AST(SGOT) (test code = 63 U/L 13-40 H 9841787364) eGFR Calculation mL/min/1.73m2 (Non-) (test code = 6824685785) eGFR Calculation mL/min/1.73m2 () (test code = 3903729032) SNOW (test code = SNOW) Association of [...] tests). Lab Interpretation Abnormal (test code = 73826-7) [facility] SMALL BOWEL [id number] 02:08:11 1. ?No bowel obstruction. No fluoroscopic [...] obstruction.No fluoroscopic images or fluoroscopic time.RL [facility] [facility] HospitalSEDIM[facility] [id number] 16:19:00 Test Item Value Reference Range Interpretation Comments ESR (test code = See_Comment [Automated message] 1250056470) The system [employer] generated this result transmitted ref erence range: 0 - 20 m m/HR. The reference r davi was not used to interpret this result as normal/abnor mal. Lab Interpretation (test Normal code = 45983-1) [facility] - To confirm nasogastric tube [...] reviewed this study and agree with the abovereport.[facility] WITH [id number] 13:48:00 Test Item Value Reference Range Interpretation Comments WBC (test code = See_Comment L [Automated 6533-2) message] The system which generated this result [...] (test code = 58.4 fL 39-49.9 H 98399-8) RDW-CV (test code = 16.7 % 12-15.5 H 788-0) PLT (test code = See_Comment LL [Automated 777-3) message] The system which generated this result transmit josemanuel reference range : 166 - 358 10*3/ ?L. The reference range was not u sed to interpret th is result as normal/abnormal . MPV (test code = 10.5 fL 9.5-12.9 13404-7) IPF % (test code = 3.0 % 1.3-7.7 Platelet count 0413488215) measured by fluorescence method. NRBC/100 WBC (test See_Comment [Automat ed code = 2605230876) message] The system which generated this result transmit josemanuel reference range : 0.0 - 10.0 /100 WBCs. The reference range was not used to interpret this result as normal/abnormal . NRBC x10^3 (test code <0.01 See_Comment [Auto mated = 1507781519) message] The system which generated this result transmit josemanuel reference range : 10*3/?L. The reference range was not used to interpret this result as normal/abnormal . GRAN MAT (NEUT) % 57.1 % (test code = 770-8) IMM GRAN % (test code 0.40 % = 2308540420) LYMPH % (test code = 28.1 % 736-9) MONO % (test code = 10.4 % 5905-5) EOS % (test code = 3.6 % 713-8) BASO % (test code = 0.4 % 706-2) GRAN MAT x10^3(ANC) 1.42 10*3/uL 1.88-7.09 L (test code = 1928872613) IMM GRAN x10^3 (test <0.03 0-0.06 code = 3443947686) LYMPH x10^3 (test 0.70 10*3/uL 1.32-3.29 L code = 731-0) MONO x10^3 (test code 0.26 10*3/uL 0.33-0.92 L = 742-7) EOS x10^3 (test code 0.09 10*3/uL 0.03-0.39 = 711-2) BASO x10^3 (test code <0.03 0.01-0.07 = 704-7) PLT ESTIMATE (test Critically Normal AA code = 9317-9) Decreased Lab Interpretation Abnormal (test code = 18145-0) [facility]YCOSYL[facility]EMOGLOBIN (A1C)2019-08-10 13:13:00 Test Item Value Reference [...] Indicated Lab Interpretation Normal (test code = 80641-3) [facility]YROID STIMULATING [id number] 13:05:00 Test Item Value Reference Range Interpretation Comments TSH (test code = See_Comment [Automated message] 5428347901) The system [employer] generated this result transmitted ref erence range: 0.45 - 4 .70 mIU/L. The refe rence range was not u sed to interpret this result as normal/abnor mal. Lab Interpretation (test Normal code = 73358-8) [facility], [id number] 13:04:00 Test Item Value Reference Range Interpretation Comments PREG SERUM (test code Negative = 2896452707) SNOW (test code = SNOW) Less than 10 IU/L. ?If low titer or ectopic is suspected, resubmit specimen in 48-72 hours. [facility] RenaissanceLIPID PANEL (09819)(TOTAL CHOLESTEROL, TRIGLYCERIDES, HDL)2019-08-10 12:36:00 Test Item Value Reference Range Interpretation Comments CHOL (test code = 158 mg/dL 120-200 2884369722) HDL (test code = 47 mg/dL >50 L 4441093092) HDLC RATIO (test code = See_Comment [Au tomated message] 7263241118) The system [employer] generated this result transmit josemanuel reference range : <=4.5. The refe rence range was not u sed to interpret th is result as normal/abnormal . TRIG (test code = 51 mg/dL 30-170 1431129872) LDL CHOL (test code = 101 mg/dL See_Comment [Auto mated message] 66469-2) The system [employer] generated this result transmit josemanuel reference range : <=160. The refe rence range was not u sed to interpret th is result as normal/abnormal . VLDL (test code = 10 mg/dL 5-60 6678416054) Lab Interpretation (test Abnormal code = 46070-1) [facility]COMP[facility] METABOLIC PANEL (70656)2019-08-10 12:35:00 Test Item Value Reference Range Interpretation Comments NA (test code = 139 mmol/L 135-145 4815116691) K (test code = 3.9 mmol/L 3.5-5 0007547026) CL (test code = 109 mmol/L 98-108 H 5435948936) CO2 TOTAL (test code = 25 mmol/L 23-31 4987476236) AGAP (test code = 2-16 3260544886) BUN (test code = 15 mg/dL 7-23 9040458772) GLUCOSE (test code = 218 mg/dL 70-110 H 0928680463) CREATININE (test code = 0.40 mg/dL 0.5-1.04 L 3089802367) TOTAL BILI (test code = 2.0 mg/dL 0.1-1.1 H 7175118517) CALCIUM (test code = 8.5 mg/dL 8.6-10.6 L 1570977497) T PROTEIN (test code = 6.2 g/dL 6.3-8.2 L 6161022796) ALBUMIN (test code = 3.1 g/dL 3.5-5 L 2219428503) ALK PHOS (test code = 99 U/L 34-122 2134452597) ALTv (test code = 42 U/L 5-35 H 1742-6) AST(SGOT) (test code = 49 U/L 13-40 H 0087045679) eGFR Calculation mL/min/1.73m2 (Non-) (test code = 0509592035) eGFR Calculation mL/min/1.73m2 () (test code = 1006754858) SNOW (test code = SNOW) Association of [...] tests). Lab Interpretation Abnormal (test code = 62590-6) [facility]2020-05-01 12:35:00 Test Item Value Reference Range Interpretation Comments MAGNESIUM (test code = 4553996784) 1.6 mg/dL 1.7-2.4 L Lab Interpretation (test code = Abnormal 48048-6) [facility]OSPHORUS2020-05-01 12:35:00 Test Item Value Reference Range Interpretation Comments PHOSPHORUS (test code = 6676700653) 3.6 mg/dL 2.5-5 Lab Interpretation (test code = Normal 36976-5) [facility] RenaissanceCREATINE [id number] 12:35:00 Test Item Value Reference Range Interpretation Comments CK (test code = 1409588742) 123 U/L 33-194 Lab Interpretation (test code = Normal 96918-2) [facility]2020-05-01 12:35:00 Test Item Value Reference Range Interpretation Comments LIPASE (test code = 5202968806) 141 U/L 0-220 Lab Interpretation (test code = Normal 67516-5) [facility]YLASE2020-05-01 12:34:00 Test Item Value Reference Range Interpretation Comments LIN (test code = 9533770155) 73 U/L 35-110 Lab Interpretation (test code = Normal 67053-7) [facility] RenaissancePROTHROMBIN TIME / [id number] 12:07:00 Test Item Value Reference Range Interpretation [...] tions. Lab Interpretation (test Abnormal code = 05363-0) [facility] RenaissanceCORONAVIRUS COVID-19 [id number] 10:18:00 Test Item Value Reference Range Interpretation Comments SARS-CoV-2 (test code = Not Detected Not Detected 35499-8) SNOW (test code = SNOW) ID NOW COVID-19 Assay is an isothermal nucleic acid amplification test intended for the qualitative detection of nucleic acid from SARS-CoV-2 viral RNA in nasopharyngeal ([employer]) specimens. It is used under Emergency Use [...] indicated. Lab Interpretation Normal (test code = 15977-0) [facility]RAD, CHEST, 1 VIEW, NON [id number] 07:50:00Reason for exam:->SOBShould this be performed at the bedside?->Yes FINAL REPORT CLINICAL HISTORY: SOB TECHNIQUE: 1 view of the chest. COMPARISON: None IMPRESSION: There is pulmonary vascular congestion with prominent lung markings bilaterally. Subpulmonic pleural effusions cannot be excluded. The cardiomediastinal silhouette is magnified by technique. Signed: Franky Louis MDReport Verified Date/Time: 10/03/2018 07:50:47 Reading Location: [facility] Radiology Reading Room [id number] 07:37:00 Test Item Value Reference Range Interpretation Comments MAGNESIUM (BEAKER) (test code = 1.6 mg/dL 1.6-2.6 627) BASIC METABOLIC [id number] 07:37:00 Test Item Value Reference Range Interpretation [...] DIALYSIS PATIEN TS. Specimen slightly ictericHEPATIC FUNCTION [id number] 07:37:00 Test Item Value Reference Range Interpretation [...] 35 U/L 6-55 347) Specimen slightly ictericPROTHROMBIN TIME/[id number] 06:25:00 Test Item Value Reference Range Interpretation [...] mechanical heart valves.CBC W/PLT COUNT & AUTO [id number] 06:16:00 Test Item Value Reference Range Interpretation [...] = 3438) Received comment: User comments: Slide comments:HEPATIC FUNCTION [id number] 05:58:00 Test Item Value Reference Range Interpretation [...] = 39 U/L 6-55 347) Specimen slightly smbiwpiGKJQEHHLE8136-43-29 05:58:00 Test Item Value Reference Range Interpretation Comments MAGNESIUM (BEAKER) (test code = 1.6 mg/dL 1.6-2.6 627) BASIC METABOLIC [id number] 05:58:00 Test Item Value Reference Range Interpretation [...] APPLICABLE FOR DIALYSIS PATIEN TS. Specimen slightly ictericPROTHROMBIN TIME/[id number] 05:26:00 Test Item Value Reference Range Interpretation [...] mechanical heart valves.CBC W/PLT COUNT & AUTO [id number] 05:20:00 Test Item Value Reference Range Interpretation [...] WBC 0-0 (test code = 413) VITAMIN [id number] 06:57:00 Test Item Value Reference Range Interpretation Comments VITAMIN B12 (BEAKER) (test code = 178 pg/mL 213-816 L 774) [id number] 06:57:00 Test Item Value Reference Range Interpretation Comments FERRITIN (BEAKER) (test code = 361) 21 ng/mL 5-275 FOLATE, [id number] 06:57:00 Test Item Value Reference Range Interpretation [...] 28 % 20-55 (test code = 2590) [id number] 05:59:00 Test Item Value Reference Range Interpretation Comments MAGNESIUM (BEAKER) (test code = 1.7 mg/dL 1.6-2.6 627) BASIC METABOLIC [id number] 05:59:00 Test Item Value Reference Range Interpretation [...] FOR DIALYSIS PATIEN TS. Specimen slightly ictericLIPID [id number] 05:59:00 Test Item Value Reference Range Interpretation [...] Very High >=190 Specimen slightly ictericHEPATIC FUNCTION [id number] 05:59:00 Test Item Value Reference Range Interpretation [...] = 41 U/L 6-55 347) Specimen slightly jzujiahVFHNBL3789-18-29 05:59:00 Test Item Value Reference Range Interpretation Comments LIPASE (BEAKER) (test code = 749) 35 U/L 8-78 Specimen slightly ictericPROTHROMBIN TIME/[id number] 05:58:00 Test Item Value Reference Range Interpretation [...] mechanical heart valves.CBC W/PLT COUNT & AUTO [id number] 05:37:00 Test Item Value Reference Range Interpretation [...] PERCENT (BEAKER) (test code = 2801) POCT-HEMOGLOBIN [id number] 06:12:00 Test Item Value Reference Range Interpretation Comments POC-HEMOGLOBIN METER 8.6 g/dL 12.0-15.0 L TESTED AT [facility] 6720 (BEAKER) (test code = [place] [address] 1539)"
[2021-10-29 23:34] LABS: Absolute Lymphocytes (CBC) 0.5 K/uL (0.7-4.9); Hematocrit 29.7 % (36.0-45.0); Lymphocytes % 20.2 % (15.3-44.8); MCV 84.1 fL (80-100); MPV 7.3 fL (7.6-11.3); RBC Red Blood Cell Count 3.53 M/uL (3.86-4.86)
[2021-10-29 23:48] LABS: Blood Morphology Comment NOT SEEN (NOT SEEN); Platelet Estimate DECR; White Blood Cell Scan OK (OK)
[2021-10-29 23:54] LABS: Albumin 3.7 g/dL (3.4-5.0); Bilirubin Total 2.7 mg/dL (0.2-1.0); Potassium 3.3 mmol/L (3.5-5.1); Protein, Total 7.1 g/dL (6.4-8.2)
--- NOTE | 2021-10-30 00:05 | ER ---
Nurse's Notes [facility] Name: Zenaida Goss Age: 61 yrs Sex: Female : 1960 Arrival Date: 10/29/2021 Time: 22:23 Bed 19 [facility] MD: Diagnosis: Hepatic encephalopathy;Thrombocytopenia;anemia Presentation: 10/29 22:29 Chief complaint: Spouse and/or significant other states: SPOUSE STATED SHE HAS BEEN [facility] ACTING WEIRD TODAY LIKE SHE DOES WHEN HER AMMONIA LEVELS ARE HIGH. Coronavirus screen: Vaccine status: Patient reports receiving the 2nd dose of the covid vaccine. At this time, the client does not indicate any symptoms associated with coronavirus-19. Ebola Screen: Patient negative for fever greater than or equal to 101.5 degrees Fahrenheit, and additional compatible Ebola Virus Disease symptoms. Initial Sepsis Screen: Does the patient meet any 2 criteria? No. Patient's initial sepsis screen is negative. Does the patient have a suspected source of infection? No. Patient's initial sepsis screen is negative. Risk Assessment: Do you want to hurt yourself or someone else? Patient reports no desire to harm self or others. Onset of symptoms was October 29, 2021. 22:29 Method Of Arrival: Wheelchair [facility] 22:29 Acuity: TANK 3 [facility] Triage Assessment: 22:31 General: Appears in no apparent distress. ill, Behavior is calm, cooperative, [facility] appropriate for age. Pain: Complains of pain in abdomen. Historical: - Allergies: 22:31 Dilaudid; [facility] 22:31 Morphine (Anaphylaxis); [facility] - Home Meds: 22:31 Creon Oral [Active]; Furosemide Oral [Active]; Lactulose Oral once daily [Active]; [facility] 22:34 spironolactone 25 mg Oral tab 1 tab once daily [Active]; [facility] - PMHx: 22:31 Anemia; breast cancer; Cirrhosis; fatty liver; Heart Murmur; Pancreatitis; varices; [facility] - PSHx: 22:31 Appendectomy; Cholecystectomy; Lumpectomy of breast; Total abdominal hysterectomy; [facility] - Immunization history:: Adult Immunizations up to date. - Social history:: Smoking status: Patient denies any tobacco usage or history of. Screenin:45 Abuse screen: Denies threats or abuse. Nutritional screening: No deficits noted. jb4 Tuberculosis screening: No symptoms or risk factors identified. Fall Risk None identified. Assessment: 22:45 General: Appears in no apparent distress. comfortable, Behavior is calm, cooperative, jb4 appropriate for age. Pain: Denies pain. Neuro: Level of Consciousness is awake, alert, obeys commands, Oriented to person, place, time, situation. Cardiovascular: Patient's skin is warm and dry. Respiratory: Airway is patent Respiratory effort is even, unlabored, Respiratory pattern is regular, symmetrical. Derm: Skin is intact, Skin is pink, warm \T\ dry. 23:42 Reassessment: Patient appears in no apparent distress at this time. Patient and/or jb4 family updated on plan of care and expected duration. Pain level reassessed. Patient is alert, oriented x 3, equal unlabored respirations, skin warm/dry/pink. 10/30 00:45 Reassessment: Patient appears in no apparent distress at this time. Patient and/or jb4 family updated on plan of care and expected duration. Pain level reassessed. Patient is alert, oriented x 3, equal unlabored respirations, skin warm/dry/pink. 01:33 Reassessment: Patient appears in no apparent distress at this time. Patient and/or jb4 family updated on plan of care and expected duration. Pain level reassessed. Patient is alert, oriented x 3, equal unlabored respirations, skin warm/dry/pink. Vital Signs: 10/29 22:29 BP 133 / 66; Pulse 96; Resp 18; Temp 98.4; Pulse Ox 98% on R/A; Weight 117.93 kg; 1 Height 5 ft. 3 in. (160.02 cm); Pain 3/10; 10/30 00:45 BP 134 / 86; Pulse 87; Resp 18; Pulse Ox 99% on R/A; jb4 01:33 BP 128 / 59; Pulse 79; Resp 16; Pulse Ox 97% on R/A; jb4 10/29 22:29 Body Mass Index 46.06 (117.93 kg, 160.02 cm) [facility] ED Course: 10/29 22:23 Patient arrived in ED. jj6 22:31 Triage completed. 1 22:31 Arm band placed on. 1 22:33 Grant Baldwin DO is Attending Physician. ms3 22:45 Patient has correct armband on for positive identification. Bed in low position. Call jb4 light in reach. Side rails up X 1. 23:02 Gilberto Hoang, RN is Primary Nurse. jb4 23:20 Initial lab(s) drawn, by me, by EMS personnel. Inserted saline lock: 22 gauge in left jb4 hand, using aseptic technique. Blood collected. 23:37 Notified ED physician of a critical lab result(s). platelets of 47 Dr Baldwin notified. 10/30 00:03 Zafar Bronson MD is Hospitalizing Provider. ms3 01:53 No provider procedures requiring assistance completed. Patient admitted, IV remains in jb4 place. Administered Medications: 00:23 Drug: Lactulose 10 grams Volume: 15 ml; Route: PO; jb4 01:32 Follow up: Response: No adverse reaction jb4 01:12 Not Given (Physician Discretion): Lactulose 10 grams 15 ml PO once jb4 01:30 Drug: Zofran (Ondansetron) 4 mg Route: IVP; Site: left hand; jb4 01:32 Drug: fentaNYL (PF) 25 mcg Route: IVP; Site: left hand; jb4 Medication: 10/29 23:42 VIS not applicable for this client. jb4 Outcome: 10/30 00:04 Decision to Hospitalize by Provider. ms3 01:53 Admitted to Med/surg accompanied by nurse, via wheelchair, room 229, with chart. jb4 01:53 Condition: stable 01:53 Discharge instructions given to patient, Instructed on the need for admit, Demonstrated understanding of instructions. 01:53 Patient left the ED. 4 Signatures: Jolene Braun RN RN Gilberto Hoang, RN RN jb4 Grant Baldwin DO DO ms3 Estefania Vera jj6 Lashon Roberts, ERIC RN 1 Corrections: (The following items were deleted from the chart) 10/29 22:35 22:31 Home Meds: hydrochlorothiazide 25 mg Oral tab 1 tab 2 times per day; [place] [id number] 22:35 22:34 Allergies: Spironolactone; [facility] 23:42 23:40 General: Appears in no apparent distress. comfortable, Behavior is calm, jb4 cooperative, appropriate for age, jb4 23:42 23:40 Pain: Denies pain. jb4 jb4 23:40 Neuro: Level of Consciousness is awake, alert, obeys commands, Oriented to jb4 person, place, time, situation, jb4 23:40 Cardiovascular: Patient's skin is warm and dry. jb4 jb4 23:40 Respiratory: Airway is patent Respiratory effort is even, unlabored, Respiratory jb4 pattern is regular, symmetrical, jb4 23:40 Derm: Skin is intact, Skin is pink, warm \T\ dry. jb4 jb4
--- NOTE | 2021-10-30 00:05 | EDPHYS ---
Physician Documentation [facility] Name: Zenaida Goss Age: 61 yrs Sex: Female : 1960 Arrival Date: 10/29/2021 Time: 22:23 Bed 19 Private MD: ED Physician Grant Baldwin HPI: 10/30 00:48 This 61 yrs old Female presents to ER via Wheelchair with complaints of PT has ms3 H/O Liver Disease, has been having generalized weakness and disorientation.. 00:48 . ms3 02:14 61-year-old female with past medical history of Yusuf, pancreatitis, heart murmur, ms3 anemia, breast cancer, liver cirrhosis presents for confusion that began this morning. Patient states earlier today she was unable to operate a telephone. Patient's states the patient has been confused more than normal. Patient and her are concerned her ammonia level is elevated. Patient denies pain. Patient denies alleviating or inciting factors. Of note patient was discharged from [facility] on Tuesday after being admitted for pancreatitis.. Historical: - Allergies: 10/29 22:31 Dilaudid; bh1 22:31 Morphine (Anaphylaxis); bh1 - Home Meds: 22:31 Creon Oral [Active]; Furosemide Oral [Active]; Lactulose Oral once daily [Active]; bh1 22:34 spironolactone 25 mg Oral tab 1 tab once daily [Active]; bh1 - PMHx: 22:31 Anemia; breast cancer; Cirrhosis; fatty liver; Heart Murmur; Pancreatitis; varices; bh1 - PSHx: 22:31 Appendectomy; Cholecystectomy; Lumpectomy of breast; Total abdominal hysterectomy; bh1 - Immunization history:: Adult Immunizations up to date. - Social history:: Smoking status: Patient denies any tobacco usage or history of. ROS: 10/30 02:14 Constitutional: Negative for fever, and chills. Neck: Negative for injury, pain, and ms3 swelling, Cardiovascular: Negative for chest pain, and palpitations. Respiratory: Negative for shortness of breath, cough, wheezing, and pleuritic chest pain, Abdomen/GI: Negative for abdominal pain, nausea, vomiting, diarrhea, and constipation, MS/Extremity: Negative for injury and deformity, Skin: Negative for injury, rash, and discoloration. Neuro: Positive for altered mental status. All other systems are negative. Exam: 02:14 Constitutional: This is a well developed, well nourished patient who is awake, alert, ms3 and in no acute distress. Head/Face: Normocephalic, atraumatic. Neck: Trachea midline, no cervical lymphadenopathy. Supple, full range of motion without nuchal rigidity, or vertebral point tenderness. No Meningismus. Chest/axilla: Normal chest wall appearance and motion. Nontender with no deformity. Cardiovascular: Regular rate and rhythm with a normal S1 and S2. No gallops, murmurs, or rubs. Normal PMI, no JVD. No pulse deficits. Respiratory: Lungs have equal breath sounds bilaterally, clear to auscultation and percussion. No rales, rhonchi or wheezes noted. No increased work of breathing, no retractions or nasal flaring. Abdomen/GI: Soft, non-tender, with normal bowel sounds. No distension or tympany. No guarding or rebound. No evidence of tenderness throughout. Skin: Warm, dry with normal turgor. Normal color with no rashes, no lesions, and no evidence of cellulitis. MS/ Extremity: Pulses equal, no cyanosis. Neurovascular intact. Full, normal range of motion. Neuro: Awake and alert, GCS 15, oriented to person, place, time, and situation. Cranial nerves II-XII grossly intact. Motor strength 5/5 in all extremities. Sensory grossly intact. Cerebellar exam normal. Normal gait. Psych: Awake, alert, with orientation to person, place and time. Behavior, mood, and affect are within normal limits. Vital Signs: 10/29 22:29 BP 133 / 66; Pulse 96; Resp 18; Temp 98.4; Pulse Ox 98% on R/A; Weight 117.93 kg; 1 Height 5 ft. 3 in. (160.02 cm); Pain 06/18; 10/30 00:45 BP 134 / 86; Pulse 87; Resp 18; Pulse Ox 99% on R/A; jb4 01:33 BP 128 / 59; Pulse 79; Resp 16; Pulse Ox 97% on R/A; jb4 10/29 22:29 Body Mass Index 46.06 (117.93 kg, 160.02 cm) bh1 MDM: 10/29 23:01 Patient medically screened. ms3 10/30 02:14 Differential Diagnosis: electrolyte abnormality, hypoglycemia, Hepatic encephalopathy. ms3 02:16 Data reviewed: vital signs, nurses notes, lab test result(s), and as a result, I will ms3 admit patient. Counseling: I had a detailed discussion with the patient and/or guardian regarding: the historical points, exam findings, and any diagnostic results supporting the discharge/admit diagnosis, lab results, the need for further work-up and treatment in the hospital. ED course: Discussed patient with Marco A Kathleen NP, and he accepts patient on behalf of Dr Bronson. All questions answered. Patient remains in stable condition while in the ED.. 10/29 23:02 Order name: CBC with Diff; Complete Time: 23:59 ms3 10/29 23:02 Order name: CMP; Complete Time: 23:59 ms3 10/29 23:02 Order name: Lipase; Complete Time: 23:59 ms3 10/29 23:02 Order name: AMMONIA; Complete Time: 23:59 ms3 10/29 23:40 Order name: CBC Smear Scan; Complete Time: 23:59 EDMS 10/30 00:02 Order name: PT-INR; Complete Time: 00:33 la1 10/29 23:02 Order name: IV Saline Lock; Complete Time: 23:26 ms3 10/29 23:02 Order name: Labs collected and sent; Complete Time: 23:26 ms3 10/30 00:34 Order name: SARS RAPID; Complete Time: 02:31 ms3 10/30 00:50 Order name: Head Brain Wo Cont CT la1 Administered Medications: 00:23 Drug: Lactulose 10 grams Volume: 15 ml; Route: PO; jb4 01:32 Follow up: Response: No adverse reaction jb4 01:12 Not Given (Physician Discretion): Lactulose 10 grams 15 ml PO once jb4 01:30 Drug: Zofran (Ondansetron) 4 mg Route: IVP; Site: left hand; jb4 01:32 Drug: fentaNYL (PF) 25 mcg Route: IVP; Site: left hand; jb4 Disposition Summary: 10/30/21 00:04 Hospitalization Ordered Hospitalization Status: Observation ms3 Provider: Zafar Bronson msMirtha Location: Telemetry/MedSurg (observation) ms3 Condition: Stable ms3 Problem: new ms3 Symptoms: are unchanged ms3 Bed/Room Type: Standard ms3 Room Assignment: 229(10/30/21 01:30) cg Diagnosis - Hepatic encephalopathy ms3 - Thrombocytopenia ms3 - anemia ms3 Forms: - Medication Reconciliation Form ms3 - SBAR form ms3 Signatures: Dispatcher [employer] EDMarco A Fischer, ZENIA-C [employer] MANAGER-Cla1 Frances Gao RN RN Gilberto Hoang RN RN 4 Grant Baldwin DO DO ms3 Lashon Roberts RN RN [facility] Corrections: (The following items were deleted from the chart) 10/29 22:35 22:31 Home Meds: hydrochlorothiazide 25 mg Oral tab 1 tab 2 times per day; [place] [id number] 22:35 22:34 Allergies: Spironolactone; [place] [id number] 10/30 01:30 00:04 ms3 cg
[2021-10-30] MEDS ORDERED: LACTULOSE 20 GM/30 ML UCUP ONE (00:25)
[2021-10-30 00:28] LABS: Protime INR 1.45
[2021-10-30 01:26] LABS: SARS-CoV-2 Antigen Rapid Res Negative (Negative)
[2021-10-30] MEDS ORDERED: ONDANSETRON 4 MG/2 ML VIAL ONE (01:28)
[2021-10-30] MEDS ORDERED: FENTANYL CITR 100 MCG/2 ML ONE (01:28)
--- NOTE | 2021-10-30 01:28 | P.HP ---
Certification for Inpatient Patient admitted to: Observation With expected LOS: <2 Midnights Patient will require the following post-hospital care: None Practitioner: I am a practitioner with admitting privileges, knowledge of patient current condition, hospital course, and medical plan of care. Services: Services provided to patient in accordance with Admission requirements found in Title 42 Section 412.3 of the Code of Federal Regulations <Marco A Messina - Last Filed: 10/30/21 01:19> Patient History Date of Service: 10/30/21 Reason for admission: Hepatic encephalopathy History of Present Illness: 61-year-old female with history of Anaya, GERD, pancreatitis presents the emergency department for altered mental status. Patient reports having difficulty feeling confused/disoriented during the day today, having difficulty using her cell phone etc. Spouse and additional family was at bedside reports he is acting similar to how she usually acts when her ammonia has been elevated in the past. She was evaluated here in the emergency department her labs were significant for pancytopenia, normocytic anemia, mild hypokalemia elevated T bili and elevated [id number]. Patient reports she has been compliant with her lactulose but she has not been having bowel movements. At this time patient is oriented x3, complaining of mild headache but does have parotic episodes of confusion. 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 - Family History Brother -: Diabetes, Kidney disease Notes: Quadruple Bypass Sister -: Heart disease, Diabetes, Cancer Father -: Heart disease, Lung disease Mother -: Blood disorders, Liver disease - Social History Smoking Status: Never smoker Alcohol use: No CD- Drugs: No Caffeine use: No Place of Residence: Home <Marco A Messina - Last Filed: 10/30/21 01:19> Date of Service: 10/30/21 <Zafar Bronson - Last Filed: 10/30/21 19:48> Allergies morphine Allergy (Severe, Verified 08/03/21 10:57) Anaphylaxis hydromorphone [From Dilaudid] Allergy (Verified 08/03/21 10:57) Itching Home Medications: Furosemide 20 mg PO DAILY 05/23/20 Spironolactone 25 mg PO DAILY 05/23/20 Albuterol Inhaler [Ventolin Inhaler*] 2 puff IH TID PRN #1 [id number].[email or web address].[id number] 07/23/20 Lactulose 15 ml PO BID PRN #900 ml 01/01/21 Review of Systems 10-point ROS is otherwise unremarkable Neurological: Confusion, As per HPI <Marco A Messina - Last Filed: 10/30/21 01:19> Physical Examination - Physical Exam General: Alert, In no apparent distress, Oriented x3, Confused, Obese HEENT: Atraumatic, PERRLA, Mucous membr. moist/pink, EOMI, Sclerae nonicteric Neck: Supple, 2+ carotid pulse no bruit, No LAD, Without JVD or thyroid abnormality Respiratory: Clear to auscultation bilaterally, Normal air movement Cardiovascular: Regular rate/rhythm, Normal S1 S2, Edema Gastrointestinal: Normal bowel sounds, No tenderness Musculoskeletal: No tenderness Integumentary: No rashes Neurological: Normal speech, Normal strength at 5/5 x4 extr, Normal tone, Normal affect - Studies Laboratory Data (last 24 hrs) 10/30/21 00:11: PT 16.1 H, INR 1.45 10/29/21 23:20: Sodium 140, Potassium 3.3 L, BUN 10, Creatinine 0.63, Glucose 111 H, Total Bilirubin 2.7 H, AST 34, ALT 39, Alkaline Phosphatase 85, Lipase 246 10/29/21 23:20: WBC 2.4 L, Hgb 9.6 L, Hct 29.7 L, Plt Count 47 L* <Marco A Messina - Last Filed: 10/30/21 01:19> - Studies Laboratory Data (last 24 hrs) 10/30/21 03:59: Sodium 140, Potassium 3.7, BUN 9, Creatinine 0.60, Glucose 103, Total Bilirubin 2.8 H, AST 35, ALT 40, Alkaline Phosphatase 86 10/30/21 03:59: WBC 2.5 L, Hgb 9.7 L, Hct 29.2 L, Plt Count 42 L* 10/30/21 00:11: PT 16.1 H, INR 1.45 10/29/21 23:20: Sodium 140, Potassium 3.3 L, BUN 10, Creatinine 0.63, Glucose 111 H, Total Bilirubin 2.7 H, AST 34, ALT 39, Alkaline Phosphatase 85, Lipase 246 10/29/21 23:20: WBC 2.4 L, Hgb 9.6 L, Hct 29.7 L, Plt Count 47 L* <Zafar Bronson - Last Filed: 10/30/21 19:48> Assessment and Plan - Plan Assessment: AMS secondary to hepatic encephalopathy/ANAYA GERD Plan: AMS secondary to hepatic encephalopathy/ANAYA: Patient reports she has been compliant with her lactulose dosing at home but has not had a bowel movement, will continue with increased lactulose dose, continue patient's other home medications including spironolactone, furosemide. Patient was seen at [facility] last week for pancreatitis, lipase normal today, had an EGD with polyp removal, was discharged with appointment to follow-up with her GI team on November 12. Her labs are stable from previous. Meld score 14. GERD: Continue protonix DVT PPX: SCD given thrombocytopenia Code status: Full Discharge Plan: Home Plan to discharge in: 24 Hours - Advance Directives Does patient have a Living Will: No Does patient have a Durable POA for Healthcare: No - Code Status/Comfort Care Code Status Assessed: Yes (Full code) Critical Care: No Time Spent Managing Pts Care (In Minutes): 70 <Marco A Messina - Last Filed: 10/30/21 01:19> Physician Review: Patient Assessed, Agree with Above Assessment and Plan <Zafar Bronson - Last Filed: 10/30/21 19:48>
[2021-10-30] MEDS ORDERED: TRAMADOL HCL 50 MG TAB PO ONE ×2 (03:09→10:27)
[2021-10-30 04:20] LABS: Absolute Lymphocytes (CBC) 0.5 K/uL (0.7-4.9); Hematocrit 29.2 % (36.0-45.0); Lymphocytes % 21.6 % (15.3-44.8); MCV 83.5 fL (80-100); MPV 7.3 fL (7.6-11.3)
[2021-10-30 04:39] LABS: Albumin 3.8 g/dL (3.4-5.0); Bilirubin Total 2.8 mg/dL (0.2-1.0); Potassium 3.7 mmol/L (3.5-5.1); Protein, Total 7.1 g/dL (6.4-8.2)
[2021-10-30] MEDS: LACTULOSE 20 GM/30 ML UCUP PO SCH ×4 (06:30→20:54)
[2021-10-30] MEDS: PANTOPRAZOLE 40MG TABLET PO SCH (06:30)
[2021-10-30] MEDS: ONDANSETRON 4 MG/2 ML VIAL IV PRN ×2 (06:30→18:09)
[2021-10-30] MEDS: SPIRONOLACTONE 25 MG TABLET PO SCH ×2 (09:01→20:53)
[2021-10-30] MEDS: FUROSEMIDE 40 MG TABLET PO SCH (09:01)
--- NOTE | 2021-10-30 10:27 | RAD REPORT ---
EXAM DESCRIPTION: CT - Head Brain Wo Cont - 10/30/2021 6:57 am CLINICAL HISTORY: 61 years, Female, Mental status change, persistent or worsening COMPARISON: None FINDINGS: Multiple transaxial tomograms of the brain were obtained from the base of the skull to the vertex without contrast. 2-D multiplanar reformats and the coronal and sagittal plane were performed and reviewed. This exam was performed according to our departmental dose-optimization protocol, which includes auto mated exposure control, adjustment of the mA and/or kV according to patient size and/or use of iterat onur reconstruction technique. Brain parenchyma as well as the perrin and white matter differentiation demonstrate to be unremarkable. There is no midline shift and/or mass effect. There is no evidence for acute hemorrhage. No focal ar eas of hypodensities. Lateral ventricles and cisterns displace normal appearance. No intra or ext ra axial fluid collections were seen. The calvarium is intact with no evidence for fracture. The visu alized portions of the paranasal sinuses and orbits demonstrate to be clear. IMPRESSION: No acute intracranial hemorrhage identified. Unremarkable CT scan of the head without contrast. Electronically signed by: Daniel Ware MD 10/30/2021 1:50 AM CDT Due to temporary technical issues with the PACS/Fluency reporting system, reports are being signed by the in house radiologists without review as a courtesy to insure prompt reporting. The interpreting radiologist is fully responsible for the content of the report.
[2021-10-31 02:28] VITALS: BMI 46.5
[2021-10-31] MEDS: ONDANSETRON 4 MG/2 ML VIAL IV PRN (04:56)
[2021-10-31] MEDS: PANTOPRAZOLE 40MG TABLET PO SCH (06:07)
[2021-10-31 06:35] LABS: Absolute Lymphocytes (CBC) 0.6 K/uL (0.7-4.9); Hematocrit 28.2 % (36.0-45.0); Lymphocytes % 22.5 % (15.3-44.8); MCV 83.7 fL (80-100); MPV 7.3 fL (7.6-11.3); RBC Red Blood Cell Count 3.37 M/uL (3.86-4.86)
[2021-10-31 06:54] LABS: Albumin 3.7 g/dL (3.4-5.0); Bilirubin Total 2.6 mg/dL (0.2-1.0); Potassium 3.6 mmol/L (3.5-5.1); Protein, Total 6.7 g/dL (6.4-8.2)
[2021-10-31] MEDS ORDERED: POTASSIUM 25 MEQ EFFERV TAB PO ONE (07:53)
[2021-10-31] MEDS: LACTULOSE 20 GM/30 ML UCUP PO SCH ×3 (09:00→20:01)
[2021-10-31] MEDS: SPIRONOLACTONE 25 MG TABLET PO SCH ×2 (09:08→20:00)
[2021-10-31] MEDS: FUROSEMIDE 40 MG TABLET PO SCH (09:08)
[2021-10-31] MEDS: PROMETHAZINE INJ 25 MG/ML AMP IV PRN ×2 (09:26→16:13)
[2021-10-31 15:28] VITALS: O2SAT 96
--- NOTE | 2021-10-31 19:41 | P.PN ---
Subjective Date of Service: 10/31/21 Chief Complaint: Hepatic encephalopathy Subjective: Improving This morning, she is alert and oriented x4 to person, place, time, and situation. However, she states that she still feels "mental fog." She has been having 2-3 bowel movements with her current dose of lactulose. Review of Systems 10-point ROS is otherwise unremarkable Gastrointestinal: Nausea Neurological: Confusion ("mental fog") Physical Examination - Vital Signs Temperature: 98.1 F Blood Pressure: 124/58 Pulse: 76 Respirations: 16 Pulse Ox (%): 96 - Physical Exam General: Alert, In no apparent distress, Oriented x3 HEENT: Atraumatic, PERRLA, Mucous membr. moist/pink, EOMI, Sclerae nonicteric Neck: Supple, 2+ carotid pulse no bruit, JVD not distended Respiratory: Clear to auscultation bilaterally, Normal air movement Cardiovascular: No edema, Regular rate/rhythm, Normal S1 S2, No gallops, No rubs, No murmurs Gastrointestinal: Normal bowel sounds, Soft and benign, Non-distended, No tenderness, No rebound, No guarding Musculoskeletal: No clubbing Integumentary: No rashes Neurological: Normal speech, Normal strength at 5/5 x4 extr, Cranial nerves 3-12 intact, Normal affect - Studies Medications List Reviewed: Yes Assessment And Plan - Plan # Acute Hepatic Encephalopathy secondary to ANAYA Cirrhosis # Pancytopenia secondary to above # Morbid Obesity - BMI 46.6 kg/m2 - CT head = "unremarkable CT scan of the head without contrast." - Mental status significantly improved from yesterday - Continue lactulose, furosemide, spironolactone - States that ondansetron is not helping with her nausea, will switch to promethazine - q4hr neuro checks - Anticipate discharge tomorrow # Gastroesophageal Reflux Disease - Continue pantoprazole Zafar Bronson M.D. Discharge Plan: Home Plan to discharge in: 24 Hours Physician Review: Patient Assessed, Agree with Above Assessment and Plan
[2021-10-31] MEDS ORDERED: TRAMADOL HCL 50 MG TAB PO ONE (19:51)
[2021-11-01] MEDS: PANTOPRAZOLE 40MG TABLET PO SCH (05:26)
--- NOTE | 2021-11-01 08:04 | P.DS ---
Admission Date: 10/30/21 Discharge Date: 11/01/21 Disposition: ROUTINE DISCHARGE Discharge Condition: GOOD Reason for Admission: Hepatic encephalopathy Hospital Course: DIAGNOSES: # Acute Hepatic Encephalopathy secondary to ANAYA Cirrhosis (MELD 14) # Pancytopenia secondary to above # Morbid Obesity - BMI 46.6 kg/m2 # Gastroesophageal Reflux Disease HOSPITAL COURSE: Ms. Zenaida Goss is a pleasant 61 year old female with a past medical history significant for ANAYA cirrhosis and gastroesophageal reflux disease who was admitted to the [facility] on 10/30/2021 for acute confusion. Upon further evaluation, her vital signs were stable. Her laboratory evaluation was notable for an initial ammonia of 95. A CT head was performed and revealed, "unremarkable CT scan of the head without contrast." She was admitted for acute hepatic encephalopathy and treated with lactulose, furosemide, and spironolactone. Over her hospitalization, her mental status improved significantly and returned to baseline. She informed me that she has been noncompliant with her home medications, which is the likely cause of her presentation. We had a detailed discussion regarding the importance of medication compliance and she verbalized understanding. On 11/01/2021, she was seen on morning rounds and deemed medically stable for discharge. She was discharged with instructions to schedule follow-up appointments with her PCP in 3-5 days and to maintain her currently scheduled Hepatology appointment with Dr. Lopez on 11/12/2021. She was provided prescriptions for furosemide, lactulose, spironolactone, and pantoprazole. She was given the opportunity to ask questions and reported no further questions. Furthermore, all questions were answered to the best of my ability. Today, I personally spent 20 minutes on her case, of which greater than 50% of the time was spent in patient education, counseling, and coordination of care as described above. - Physical Exam General: Alert, In no apparent distress, Oriented x3 HEENT: Atraumatic, PERRLA, Mucous membr. moist/pink, EOMI, Sclerae nonicteric Neck: Supple, 2+ carotid pulse no bruit, JVD not distended Respiratory: Clear to auscultation bilaterally, Normal air movement Cardiovascular: No edema, Regular rate/rhythm, Normal S1 S2, No gallops, No rubs, No murmurs Gastrointestinal: Normal bowel sounds, Soft and benign, Non-distended, No tenderness, No rebound, No guarding Musculoskeletal: No clubbing Integumentary: No rashes Neurological: Normal speech, Normal strength at 5/5 x4 extr, Cranial nerves 3-12 intact, Normal affect Vital Signs/Physical Exam: Temp Pulse Resp BP Pulse Ox 97.4 F 74 19 127/61 95 11/01/21 04:00 11/01/21 04:00 11/01/21 04:00 11/01/21 04:00 11/01/21 04:00 Laboratory Data at Discharge: WBC 2.5 K/uL (4.3-10.9) L 10/31/21 06:23 Hgb 9.2 g/dL (12.0-15.0) L 10/31/21 06:23 Hct 28.2 % (36.0-45.0) L 10/31/21 06:23 Plt Count 42 K/uL (152-406) L* 10/31/21 06:23 PT 16.1 SECONDS (9.5-12.5) H 10/30/21 00:11 INR 1.45 10/30/21 00:11 Sodium 141 mmol/L (136-145) 10/31/21 06:23 Potassium 3.6 mmol/L (3.5-5.1) 10/31/21 08:28 BUN 12 mg/dL (7-18) 10/31/21 06:23 Creatinine 0.68 mg/dL (0.55-1.3) 10/31/21 06:23 Glucose 114 mg/dL (74-106) H 10/31/21 06:23 Total Bilirubin 2.6 mg/dL (0.2-1.0) H 10/31/21 06:23 AST 33 U/L (15-37) 10/31/21 06:23 ALT 39 U/L (12-78) 10/31/21 06:23 Alkaline Phosphatase 87 U/L (45-117) 10/31/21 06:23 Lipase 246 U/L (73-393) 10/29/21 23:20 Home Medications: Albuterol Inhaler [Ventolin Inhaler*] 2 puff IH TID PRN #1 hfa.aer.ad 07/23/20 Furosemide 20 mg PO DAILY #30 11/01/21 Lactulose [Cephulac*] 30 ml PO TID #90 ucup 11/01/21 Pantoprazole [Protonix Tab*] 40 mg PO DAILYAC #30 tab 11/01/21 Spironolactone 25 mg PO DAILY #30 11/01/21 New Medications: Lactulose [Cephulac*] 30 ml PO TID #90 ucup Furosemide 20 mg PO DAILY #30 Pantoprazole [Protonix Tab*] 40 mg PO DAILYAC #30 tab Spironolactone 25 mg PO DAILY #30 Physician Discharge Instructions: 1. Please schedule follow-up appointment with your PCP in 3-5 days. 2. Please keep your Hepatology appointment with Dr. Lopez on 11/12/2021 Diet: AHA Activity: Ad lencho Followup: Madhu Albarado MD [Primary Care Provider] - Time spent managing pt's care (in minutes): 20
[2021-11-01 08:21] VITALS: BP 124/49; TEMP 97.9
== END 2021-11-01 09:10 | disposition home or self-care (01) | DRG 442 ==
LOC: ER 22:19 → ERHOLD 10-30 00:52 → 2ND 10-30 01:51 → OBSVTOIN 10-30 12:19
PROVIDERS: ADMIT Internal Medicine; ATTEND Internal Medicine
DX: K72.00 Acute and subacute hepatic failure without coma (principal); D61.818 Other pancytopenia; Z68.42 Body mass index [BMI] 45.0-49.9, adult; K75.81 Nonalcoholic steatohepatitis (NASH); E66.01 Morbid (severe) obesity due to excess calories; K21.9 Gastro-esophageal reflux disease without esophagitis; Z87.19 Personal history of other diseases of the digestive system; Z85.3 Personal history of malignant neoplasm of breast; Z20.822 Contact with and (suspected) exposure to COVID-19
CPT/HCPCS: 36415; 70450; 80053; 82140; 83690; 84132; 85025; 85610; 87811; 96374; 96375; 99285; G0378; J2405; J2550; J3010

== ENCOUNTER 2021-11-16 21:33 | Emergency (ER) | payer OTHER ==
--- OUTSIDE RECORDS SUMMARY | 2021-11-16 21:42 | XMS REPORT | Continuity of Care Document ---
:1960 Author Organization [facility] t Address [address] [place] [address] [address] [place] [address] Care Team Providers Name Role Phone MADHU HERNANDEZ Primary Care Physician Unavailable Madhu Hernandez Attending Clinician Unavailable Annalise Souza Attending Clinician Unavailable RAFAEL GUERRERO Attending Clinician Unavailable MD VIKTOR BILLINGS Attending Clinician Unavailable Sukhdev KOENIG Attending Clinician Unavailable Sukhdev Fajardo Attending Clinician Doctor Unassigned, [place] Attending Clinician Unavailable [facility]opedic Attending Clinician Unavailabl e AZALEA GREEN Attending Clinician Unavailable Azalea Mancilla F Attending Clinician Frances Cruz RN Attending Clinician Unavailable LEXIE SHEFFIELD Attending Clinician Unavailable Only, Ang Db Test Attending Clinician Unavailable Unknown, Attending Attending Clinician Unavailable CHERI SANDOVAL Attending Clinician Unavailable GARTH CARLOS Attending Clinician Unavailable ROBERTH WARD Attending Clinician Unavailable Madiha Taylor RN Attending Clinician Rene Evans MD Attending Clinician Shaina Brito MD Attending Clinician MD VIKTOR BILLINGS Attending Clinician Unavailable TERRI GERMAN Attending Clinician Unavailable MD SHARITA GU Attending Clinician Unavailable MD CHERI SANDOVAL Attending Clinician Unavailable Lab, Adc Fam Pob I Attending Clinician Unavailable Dulce Miller Attending Clinician Nasrin REYES, Jovanny Souza Attending Clinician Unavailable SHAINA BRITO Attending Clinician Unavailable AVI DAVEY Attending Clinician Unavailable ALEXA ESCALONA Attending Clinician Unavailable VIKTOR BILLINGS Admitting Clinician Unavailable Sukhdev KOENIG Admitting Clinician Unavailable AZALEA GREEN Admitting Clinician Unavailable SHARITA GU Admitting Clinician Unavailable GARTH CARLOS Admitting Clinician Unavailable ROBERTH WARD Admitting Clinician Unavailable Shaina Brito MD Admitting Clinician MD SHARITA GU Admitting Clinician Unavailable MD ROBERTH WARD Admitting Clinician Unavailable CHERI SANDOVAL Admitting Clinician Unavailable MD CHERI SANDOVAL Admitting Clinician Unavailable MD VIKTOR BILLINGS Admitting Clinician Unavailable SHAINA BRITO Admitting Clinician Unavailable AVI DAVEY Admitting Clinician Unavailable ALEXA ESCALONA Admitting Clinician Unavailable Payers Payer Name Policy Type Policy Number Effective Date Expiration Date [facility] [id number] 2019 CHOICE 00:00:00 Problems Condition Condition Condition Status Onset Resolution Last Treating Co mments Source Name Details Category Date Date Treatment Clinician Date Pancolitis Pancolitis Disease Active U nivers 6-21 ity of 00:00: [place] 00 Medical Branch Arrhythmia Arrhythmia Disease Active U nivers 6-21 ity of 00:00: [place] [address] Medical Branch Ventricula Ventricula Disease Active U nivers r r 6-21 ity of tachycardi tachycardi [place] 00 [place] Other Other Disease Active Univers cirrhosis cirrhosis 6-21 ity of of liver of liver 00:00: [place] 00 Medical Branch ANAYA ANAYA Disease Active Univers (nonalcoho (nonalcoho 6-21 it y of lic lic 00:00: [place] steatohepa steatohepa 00 Me dical titjoe) geovany) Branch Hypokalemi Hypokalemi Disease Active U nivers a a 6-21 ity of 00:00: [place] 00 Medical Branch Acute Acute Disease Active Univers colitis colitis 09-29 ity of 00:00: [place] 00 Medical Branch SBO (small SBO (small Disease Active U nivers bowel bowel 08-09 ity of obstructio obstructio 00:00: [place] n) n) 00 Medical Branch Intractabl Intractabl Disease Active U nivers e nausea e nausea 08-09 ity of and and 00:00: [place] vomiting [...] of - [facility] right knee right knee [facility] Primary Primary Diagnosis Active 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 of itis of - [facility] left knee left knee [facility] Allergies, Adverse Reactions, Alerts Allergy [...] Active Info Not Commo n Reaction Available [facility] t [facility] Social History Social Habit Start Date Stop Date Quantity Comments Source Exposure to 2021-09-18 2021-09-28 Not sure [facility] SARS-CoV-2 00:00:00 21:57:00 [facility] (event) [place] Alcohol intake 2021-04-02 2021-04-02 Ex-drinker [facility] 00:00:00 00:00:00 (finding) [facility] Tobacco use and 2016-08-07 2016-08-07 Never used Universit y of exposure 00:00:00 00:00:00 [facility] Sex [birth year] At [birth year] Universit y of 00:00:00 00:00:00 [facility] Smoking Status Start Date Stop Date Source Never smoker [facility] Medications Ordered Filled Start Stop Current Ordering Indication Dosage Frequency Signature Comments Components Source Medication Medication Date Date Medication? Clinician (SIG) Name Name acetaminoph 2021- No 1{tbl} 1 tablet, Univers en-codeine 09-29 Oral, ity of (TYLENOL 06:00: 05:02 ONCE, 1 [place] #3) 300-30 00 :00 dose, On Medic al mg tablet 1 Tue Branch tablet 09/29/21 at 0100, VERN naproxen 2021- No 500mg 500 mg, Univ ers (NAPROSYN) 09-29 Oral, ity of tablet 500 06:00: 04:58 ONCE, 1 [place] mg 00 :00 dose, On Medical Tue Branch 09/29/21 at 0100, Routine naproxen Yes [id number] 500mg Take 1 Univers (NAPROSYN) 09-28 9104 tablet by ity of 500 mg 00:00: mouth 2 [place] tablet 00 (two) Medical times Branch daily with meals. dexamethaso 2020-04- No 10mg 10 mg, Uni [...] 04/02/21 at 1445, VERN ondansetron 2020-04 Yes [id number] 4mg Take 1 Univers 4 mg 2-23 tablet by ity of disintegrat 00:00: mouth [place] ing tablet 00 every 8 Medica l (eight) Branch hours as needed for Nausea and Vomiting (N/V). ondansetron 2020-04 Yes [id number] 4mg Take 1 Univers 4 mg 2-23 tablet by ity of disintegrat 00:00: mouth [place] ing tablet 00 every 8 Medica l (eight) Branch hours as needed for Nausea and Vomiting (N/V). ondansetron 2020-04 Yes [id number] 4mg Take 1 Univers 4 mg 2-23 tablet by ity of disintegrat 00:00: mouth [place] ing tablet 00 every 8 Medica l (eight) Branch hours as needed for Nausea and Vomiting (N/V). ondansetron 2020-04 Yes [id number] 4mg Take 1 Univers 4 mg 2-23 tablet by ity of disintegrat 00:00: mouth [place] ing tablet 00 every 8 Medica l (eight) Branch hours as needed for Nausea and Vomiting (N/V). cholecalcif 2020- No [id number] 1999U Take 2 Univers nuno, 6-26 07-27 tablets by ity of vitamin D3, 00:00: 04:59 [place] 25 mcg 00 :00 daily for Medical (1,000 30 days. Branch unit) tablet cyanocobala 2020- No [id number] 1000ug inject 1 Univers min 1,000 6-26 07-27 mL under ity o f mcg/mL 00:00: 04:59 the skin [place] injection 00 :00 every 24 Medica l (twenty-fo Branch ur) hours for 30 days. KCL 20 mEq 2020- No [id number] 20meq Take 1 Univers tablet 6-26 07-27 tablet by ity of 00:00: 04:59 mouth [place] 00 :00 daily for Medical 30 days. Branch cholecalcif 2020- No [id number] 1999U Take 2 Univers nuno, 6-26 07-27 tablets by ity of vitamin D3, 00:00: 04:59 [place] 25 mcg 00 :00 daily for Medical (1,000 30 days. Branch unit) tablet cyanocobala 2020- No [id number] 1000ug inject 1 Univers min 1,000 6-26 07-27 mL under ity o f mcg/mL 00:00: 04:59 the skin [place] injection 00 :00 every 24 Medica l (twenty-fo Branch ur) hours for 30 days. KCL 20 mEq 2020- No [id number] 20meq Take 1 Univers tablet 6-26 07-27 [...] tablet Branch lipase/prot 2020- No Take by Un marline ease/amylas 6-25 06-25 mouth. ity o f [...] mg EC 25 Medical tablet Branch lactulose 2021-0 Yes 30mL Take 30 mL Un marline 10 gram/15 6-25 by mouth ity o f mL oral 13:10: daily. [place] solution 25 Medical Branch pantoprazol 0 Yes 40mg Take 40 mg Univers e 6-25 by mouth ity of (PROTONIX) 13:10: daily. [place] 40 mg EC 25 Medical tablet Branch lactulose 0 Yes 30mL Take 30 mL Un marline 10 gram/15 6-25 by mouth ity o f mL oral 13:10: daily. [place] solution 25 Medical Branch pantoprazol 0 Yes 40mg Take 40 mg Univers e 6-25 by mouth ity of (PROTONIX) 13:10: daily. [place] 40 mg EC 25 Medical tablet Branch lactulose 0 Yes 30mL Take 30 mL Un marline 10 gram/15 6-25 by mouth ity o f mL oral 13:10: daily. [place] solution 25 Medical Branch pantoprazol 0 Yes 40mg Take 40 mg Univers e 6-25 by mouth ity of (PROTONIX) 13:10: daily. [place] 40 mg EC 25 Medical tablet Branch lactulose 0 Yes 30mL Take 30 mL Un marline 10 gram/15 6-25 by mouth ity o f mL oral 13:10: daily. [place] solution 25 Medical Branch pantoprazol 0 Yes 40mg Take 40 mg Univers e 6-25 by mouth ity of (PROTONIX) 13:10: daily. [place] 40 mg EC 25 Medical tablet Branch lactulose 0 Yes 30mL Take 30 mL Un marline 10 gram/15 6-25 by mouth ity o f mL oral 13:10: daily. [place] solution 25 Medical Branch pantoprazol 0 Yes 40mg Take 40 mg Univers e 6-25 by mouth ity of (PROTONIX) 13:10: daily. [place] 40 mg EC 25 Medical tablet Branch lactulose 0 Yes 30mL Take 30 mL Un marline 10 gram/15 6-25 by mouth ity o f mL oral 13:10: daily. [place] solution 25 Medical Branch pantoprazol 2020-0 Yes 40mg Take 40 mg Univers e 6-25 by mouth ity of (PROTONIX) 13:10: daily. [place] 40 mg EC 25 Medical tablet Branch proMETHazin 0 Yes 12.5mg 12.5 mg, Univers e 6-25 Oral, ity of (PHENERGAN) 04:17: Q6HPRN, [place] tablet 12.5 34 Starting Medi molly mg Geraldine Branch 10/02/20 at 2317, Until Discontinu ed, Routine, Nausea and Vomiting (N/V), N/V unresponsi ve to Ondansetro n proMETHazin 2020-0 Yes [id number] 12.5mg Take 1 Univers e 12.5 mg 6-25 tablet by ity o f tablet 00:00: mouth [place] 00 every 6 Medical (six) Branch hours as needed for Nausea and Vomiting (N/V) or N/V unresponsi ve to Ondansetro n. proMETHazin 2020-0 Yes [id number] 12.5mg Take 1 Univers e 12.5 mg 6-25 tablet by ity o f tablet 00:00: mouth [place] 00 every 6 Medical (six) Branch hours as needed for Nausea and Vomiting (N/V) or N/V unresponsi ve to Ondansetro n. proMETHazin Yes [id number] 12.5mg Take 1 Univers e 12.5 mg 6-25 tablet by ity o f tablet 00:00: mouth [place] 00 every 6 Medical (six) Branch hours as needed for Nausea and Vomiting (N/V) or N/V unresponsi ve to Ondansetro n. proMETHazin 0 Yes [id number] 12.5mg Take 1 Univers e 12.5 mg 6-25 tablet by ity o f tablet 00:00: mouth [place] 00 every 6 Medical (six) Branch hours as needed for Nausea and Vomiting (N/V) or N/V unresponsi ve to Ondansetro n. proMETHazin 2020-0 Yes [id number] 12.5mg Take 1 Univers e 12.5 mg 6-25 tablet by ity o f tablet 00:00: mouth [place] 00 every 6 Medical (six) Branch hours as needed for Nausea and Vomiting (N/V) or N/V unresponsi ve to Ondansetro n. proMETHazin 2020-0 Yes [id number] 12.5mg Take 1 Univers e 12.5 mg 6-25 tablet by ity o f tablet 00:00: mouth [place] 00 every 6 Medical (six) Branch hours as needed for Nausea and Vomiting (N/V) or N/V unresponsi ve to Ondansetro n. proMETHazin Yes [id number] 12.5mg Take 1 Univers e 12.5 mg 6-25 tablet by ity o f tablet 00:00: mouth [place] 00 every 6 Medical (six) Branch hours as needed for Nausea and Vomiting (N/V) or N/V unresponsi ve to Ondansetro n. proMETHazin Yes [id number] 12.5mg Take 1 Univers e 12.5 mg 6-25 tablet by ity o f tablet 00:00: mouth [place] 00 every 6 Medical (six) Branch hours as needed for Nausea and Vomiting (N/V) or N/V unresponsi ve to Ondansetro n. proMETHazin Yes [id number] 12.5mg Take 1 Univers e 12.5 mg 6-25 tablet by ity o f tablet 00:00: mouth [place] 00 every 6 Medical (six) Branch hours as needed for Nausea and Vomiting (N/V) or N/V unresponsi ve to Ondansetro n. furosemide 2020- No [id number] 40mg Take 1 Univers 40 mg 6-25 07-26 tablet by ity of tablet 00:00: 04:59 mouth [place] 00 :00 every Medical morning Branch and evening for 30 days. lipase-prot 2020- No [id number] 2{capsu Take 2 Univers ease-amylas 6-25 07-26 le} capsules ity of e 00:00: 04:59 by mouth 3 [place] 12,000-38,0 00 :00 (three) Medic al 00 -60,000 times Branch unit daily with capsule meals for 30 days. lactobacill 2020- No [id number] .5mg Take 1 Univers us 6-25 07-26 tablet by ity of acidophilus 00:00: 04:59 mouth 2 [place] 00 :00 (two) Medical times Branch daily for 30 days. furosemide 2020- No [id number] 40mg Take 1 Univers 40 mg 6-25 07-26 tablet by ity of tablet 00:00: 04:59 mouth [place] 00 :00 every Medical morning Branch and evening for 30 days. lipase-prot 2020- No [id number] 2{capsu Take 2 Univers ease-amylas 6-25 07-26 le} capsules ity of e 00:00: 04:59 by mouth 3 [place] 12,000-38,0 00 :00 (three) Medic al 00 -60,000 times Branch unit daily with capsule meals for 30 days. lactobacill 2020- No [id number] .5mg Take 1 Univers us 6-25 07-26 tablet by ity of acidophilus 00:00: 04:59 mouth 2 [place] 00 :00 (two) Medical times Branch daily for 30 days. vancomycin 2020- No [id number] 125mg Take 1 Univers 125 mg 6-25 07-06 capsule by ity of capsule 00:00: 04:59 mouth 4 [place] 00 :00 (four) Medical times Branch daily for 10 days. vancomycin 2020- No [id number] 125mg Take 1 Univers 125 mg 6-25 07-06 capsule by ity of capsule 00:00: 04:59 mouth 4 [place] 00 :00 (four) Medical times Branch daily [...] Indication s: acute pain cephALEXin 2020- No [id number] 500mg Take 1 Univers 500 mg 6-25 07-01 capsule by ity of capsule 00:00: 04:59 mouth 4 [place] 00 :00 (four) Medical times Branch daily for 5 days. cephALEXin 2020- No [id number] 500mg Take 1 Univers 500 mg 6-25 07-01 capsule by ity of capsule 00:00: 04:59 mouth 4 [place] 00 :00 (four) Medical times [place] daily for 5 days. meperidine Yes 25mg 25 mg, Unive rs (DEMEROL) 24 Intramuscu ity of injection 22:11: lar, [place] [...] at 0900, Until Discontinu ed, Routine iron No 300mg 300 mg, IV Unive rs [...] 21:15: First dose [place] mg 00 on [facility] 09/30/20 at Branch 1615, Until Discontinu ed, [...] Discontinu ed, Routine, Insomnia D5W 0.45% 2020- IV Univers NaCl 09-29 Infusion, ity of (1/2NS) 1 L 21:00: 21:15 at 100 [place] as + KCL 20 00 :40 mL/hr, Medical mEq CONTINUOUS Branch , Starting 09/29/20 at 1600, Until Tue09/30/20 at 1615, Routine cholecalcif Yes 2000U 2,000 [facility] ers nuno 6- Units, ity of (vitamin 20:00: Oral, [place] [...] TID ity of e (CREON) 08:45: MEALS, [place] 12,000-38,0 00 First dose Me dical 00 -60,000 on Tue Branch unit 09/29/20 at capsule 2 0345, capsule Until Discontinu ed, Routine FENTanyl PF 2020- No 50ug 50 mcg, Un marline (SUBLIMAZE 09-29 Slow IV ity o f (PF)) 08:40: 17:13 Push, [place] injection 42 :17 Q4HPRN, Medical 50 mcg [...] Branch 09/29/20 at 0245, Routine FENTanyl PF 2020- No 50ug 50 mcg, Un marline (SUBLIMAZE 09-29 Slow IV ity o f (PF)) 07:30: 06:27 Push, [place] injection 00 :00 ONCE, 1 Medical 50 mcg dose, Mon Branch 09/29/20 at 0230, Routine piperacilli 2020- No [...] No 40mg 40 mg, IV Univers e 09-2922 Piggyback, ity of (PROTONIX) 06:45: 21:11 Q12H, [...] injection 4 17 Starting Medi molly mg [facility] 09/29/20 at 0142, Until Discontinu ed, Routine, Nausea and Vomiting (N/V) iopamidol 2020- No [id number] 100mL 100 mL, Univers (ISOVUE 09-29 Intravenou ity o f 370-500 mL) 06:00: 04:53 s, ONCE, 1 [place] injection 00 :00 dose, Mon Medic al 100 mL 09/29/20 at Branch 0100, Routine KCL No 40meq 40 mEq, Univers (KLOR-CON 09-29 Oral, ity of M20) tablet 05:45: 05:15 ONCE, 1 [place] 40 mEq 00 :00 dose, [facility] Medical 09/29/20 at Branch 0045, Routine ondansetron 2020- No 4mg 4 mg, Slow Univers (ZOFRAN 09-29 IV Push, ity of (PF)) 05:45: 05:14 ONCE, 1 [place] injection 4 00 :00 dose, Mon Med ical mg 09/29/20 at Branch 0045, VERN FENTanyl PF No 50ug 50 mcg, Un marline (SUBLIMAZE 09-29 Slow IV ity o f (PF)) 05:45: 05:14 Push, [place] injection 00 :00 ONCE, 1 Medical 50 mcg dose, [facility] 09/29/20 at 0045, Routine NaCl 0.9% No 1000mL at 999 Uni vers (NS) IV 09-29 mL/hr, ity of infusion 05:45: 06:38 Intravenou [place] 1,000 mL 00 :45 s, Medical CONTINUOUS Branch , Starting 09/29/20 at 0045, Until 09/29/20 at 0138, Routine Meloxicam Meloxicam 2019- 2020- No Gm 1 tablet Common 09-17 [facility] 00:00: 00:00 - [facility] 00 :00 [facility] flu vaccine 2020- No .5mL [...] for Pain (scale 4-6). acetaminoph 2020-0 Yes [id number] 1{tbl} Take 1 Univers en-codeine 5-02 tablet by ity of 300-30 mg 00:00: mouth [place] tablet 00 every 4 Medical (four) Branch hours as needed for Pain (scale 4-6). acetaminoph 2020-0 Yes [id number] 1{tbl} Take 1 Univers en-codeine 5-02 tablet by ity of 300-30 mg 00:00: mouth [place] tablet 00 every 4 Medical (four) Branch hours as needed for Pain (scale 4-6). lactulose 2020-0 2020- No [id number] 30mL Take 30 mL Univers 10 gram/15 5- 06-02 by mouth 2 it y of mL oral 00:00: 04:59 (two) [place] solution 00 :00 times Medical daily for Branch 30 days. pantoprazol 2020-0 2020- No [id number] 40mg Take 1 Univers e 40 mg EC 5-02 06-02 tablet by ity of tablet 00:00: 04:59 mouth [place] 00 :00 daily for Medical 30 days. Branch lactulose 2020-0 2020- No [id number] 30mL Take 30 mL Univers 10 gram/15 5-02 06-02 by mouth 2 it y of mL oral 00:00: 04:59 (two) [place] solution 00 :00 times Medical daily for Branch 30 days. pantoprazol 2020-0 2020- No [id number] 40mg Take 1 Univers e 40 mg EC 5-02 06-02 tablet by ity of tablet 00:00: 04:59 mouth [place] 00 :00 daily for Medical 30 days. Branch propranolol 2019-0 2020- No [id number] 10mg Take 1 Univers 10 mg 5-02 05-02 tablet by ity of tablet 00:00: 00:00 mouth 2 [place] 00 :00 (two) Medical times Branch daily for 30 days. ibuprofen 2020-0 Yes 600mg 600 mg, Univ ers (IBU) 5- Oral, ity of tablet 600 20:57: Q6HPRN, [place] mg 31 Starting Medical 08/10/19 Branch at 1557, Until Discontinu ed, Routine, [...] Slow IV ity of (PF)) 09:22: Push, [place] injection 46 Q4HPRN, Medical 50 mcg Starting [...] e Sodium e Sodium Singh defined [facility] Acetaminoph Acetaminoph Yes Gm not Common en-Codeine en-Codeine Singh defined [facility] #3 #3 [facility] Oseltamivir Oseltamivir Yes Gm not Common Phosphate Phosphate Singh defined Sp cleopatra [facility] Levofloxaci Levofloxaci Yes Gm not Common n n Singh defined [facility] Xifaxan Xifaxan Yes Gm not Common Singh defined [facility] Lactulose Lactulose Yes Gm not Co mmon Singh defined [facility] Albuterol Albuterol Yes Gm not Co mmon Sulfate HFA Sulfate HFA Singh defined [facility] Azithromyci Azithromyci Yes Gm not Common n n Singh defined [facility] Amoxicillin Amoxicillin Yes Gm not Common -Pot -Pot Singh defined [facility] Clavulanate Clavulanate [facility] Immunizations Ordered Filled Immunization Date Status Comments Sour e Immunization Name Name Pneumococcal 2020-10-03 Completed [...] Completed Unive rsity of MODERNA VACCINE 00:00:00 [facility] Branch SARS-COV-2 COVID-19 2020-08-08 Completed Unive rsity of MODERNA VACCINE 00:00:00 [facility] Branch SARS-COV-2 COVID-19 2020-08-08 Completed Unive rsity of MODERNA VACCINE 00:00:00 [facility] Branch SARS-COV-2 COVID-19 2020-08-08 Completed Unive rsity of MODERNA VACCINE 00:00:00 [facility] Branch SARS-COV-2 COVID-19 2020-08-08 Completed Unive rsity of MODERNA VACCINE 00:00:00 [facility] Branch SARS-COV-2 COVID-19 2020-08-08 Completed Unive rsity of MODERNA VACCINE 00:00:00 [facility] Branch SARS-COV-2 COVID-19 2020-08-08 Completed Unive rsity of MODERNA VACCINE 00:00:00 [facility] Branch SARS-COV-2 COVID-19 2020-08-08 Completed Unive rsity of MODERNA VACCINE 00:00:00 [facility] ical Branch SARS-COV-2 COVID-19 2020-08-08 Completed Unive rsity of MODERNA VACCINE 00:00:00 [facility] ical Branch SARS-COV-2 COVID-19 2020-08-08 Completed Unive rsity of MODERNA VACCINE 00:00:[address] [facility] SARS-COV-2 COVID-19 2020-07-11 Completed Unive rsity of MODERNA VACCINE 00:00:[address] [facility] SARS-COV-2 COVID-19 2020-07-11 Completed Unive rsity of MODERNA VACCINE 00:00:[address] [facility] SARS-COV-2 COVID-19 2020-07-11 Completed Unive rsity of MODERNA VACCINE 00:00:[address] [facility] SARS-COV-2 COVID-19 2020-07-11 Completed Unive rsity of MODERNA VACCINE 00:00:[address] [facility] SARS-COV-2 COVID-19 2020-07-11 Completed Unive rsity of MODERNA VACCINE 00:00:[address] [facility] SARS-COV-2 COVID-19 2020-07-11 Completed Unive rsity of MODERNA VACCINE 00:00:[address] [facility] SARS-COV-2 COVID-19 2020-07-11 Completed Unive rsity of MODERNA VACCINE 00:00:[address] [facility] SARS-COV-2 COVID-19 2020-07-11 Completed Unive rsity of MODERNA VACCINE 00:00:[address] [facility] SARS-COV-2 COVID-19 2020-07-11 Completed Unive rsity of MODERNA VACCINE 00:00:[address] [facility] SARS-COV-2 COVID-19 2020-07-11 Completed Unive rsity of MODERNA VACCINE 00:00:[address] [facility] Influenza Virus 2019-08-11 Completed Universit y of Vaccine Quad .5 mL 00:00:00 [facility] IM 6+ MO Branch Influenza Virus 2019-08-11 Completed Universit y of Vaccine [place] .5 mL 00:00:00 [facility] IM 6+ MO Branch Influenza Virus 2019-08-11 Completed Universit y of Vaccine Quad .5 mL 00:00:00 [place] [facility] IM 6+ MO Branch Influenza Virus 2019-08-11 Completed Universit y of Vaccine Quad .5 mL 00:00:00 [place] [facility] IM 6+ MO Branch Influenza Virus 2019-08-11 Completed Universit y of Vaccine [place] .5 mL 00:00:00 [facility] IM 6+ MO Branch Influenza Virus 2019-08-11 Completed Universit y of Vaccine [place] .5 mL 00:00:00 [facility] 6+ MO Branch Influenza Virus 2019-08-11 Completed Universit y of Vaccine [place] .5 mL 00:00:00 [facility] 6+ MO Branch Influenza Virus 2019-08-11 Completed Universit y of Vaccine [place] .5 mL 00:00:00 [facility] 6+ MO Branch Influenza Virus 2019-08-11 Completed Universit y of Vaccine [place] .5 mL 00:00:00 [facility] 6+ MO Branch Influenza Virus 2019-08-11 Completed Universit y of Vaccine [place] .5 mL 00:00:00 [facility] 6+ MO Branch Influenza Virus 2019-08-11 Completed Universit y of Vaccine [place] .5 mL 00:00:00 [facility] 6+ MO Branch Influenza Virus 2019-08-11 Completed Universit y of Vaccine [place] .5 mL 00:00:00 [facility] 6+ MO Branch Influenza Virus 2019-08-11 Completed Universit y of Vaccine [place] .5 mL 00:00:00 [facility] 6+ MO Branch Vital Signs Vital Name Observation Time Observation Value Comments Source Systolic blood 2021-09-29 03:00:00 126 mm[Hg] Univer sity of pressure [facility] Diastolic blood 2021-09-29 03:00:00 57 mm[Hg] Unive rsity of pressure [facility] Heart rate 2021-09-29 03:00:00 78 /min [facility] Body temperature 2021-09-29 03:00:00 37.28 [facility] 2021-09-29 03:00:00 16 /min [facility] Body height 2021-09-29 03:00:00 162.6 cm [facility] Body weight 2021-09-29 03:00:00 117.935 kg [facility] BMI 2021-09-29 03:00:00 44.63 kg/m2 [facility]i ty [facility] [place] [facility] Oxygen saturation in 2021-09-29 03:00:00 97 /min University of Arterial blood by [facility] Pulse oximetry Branch Systolic blood 2021-04-02 18:55:00 138 mm[Hg] Univer sity of pressure [place] [facility] Diastolic blood 2021-04-02 18:55:00 104 mm[Hg] Unive rsity of pressure [place] [facility] Heart rate 2021-04-02 18:55:00 74 /min [facility] Body temperature 2021-04-02 18:55:00 36.78 Sandee [facility] Respiratory rate 2021-04-02 18:55:00 18 /min [facility] Body weight 2021-04-02 18:55:00 122.471 kg [facility] BMI 2021-04-02 18:55:00 46.35 kg/m2 [facility] Oxygen saturation in 2021-04-02 18:55:00 97 /min [facility] Arterial blood by [facility] Pulse oximetry Branch Systolic blood 2020-10-03 17:23:00 132 mm[Hg] [facility] Diastolic blood 2020-10-03 17:23:00 56 mm[Hg] [facility] Heart rate 2020-10-03 17:23:00 88 /min [facility] Body temperature 2020-10-03 17:23:00 36.94 Sandee [facility] Respiratory rate 2020-10-03 17:23:00 18 /min [facility] Oxygen saturation in 2020-10-03 17:23:00 94 /min [facility] Arterial blood by [facility] Pulse oximetry Branch Body weight 2020-09-30 08:11:00 121.473 kg [facility] BMI 2020-09-30 08:11:00 47.44 kg/m2 [facility] Body height 2020-09-29 03:33:00 160 cm [facility] Diastolic blood 2019-08-11 20:04:00 44 mm[Hg] [facility] Heart rate 2019-08-11 20:04:00 70 /min [facility] Body temperature 2019-08-11 20:04:00 36.61 Sandee [facility] Respiratory rate 2019-08-11 20:04:00 18 /min [facility] Oxygen saturation in 2019-08-11 20:04:00 91 /min [facility] Arterial blood by [facility] Pulse oximetry Branch Systolic blood 2019-08-11 20:04:00 107 mm[Hg] Univer [facility]ity of pressure [facility] Body height 2019-08-10 08:01:00 162.6 cm [facility] [place] Body weight 2019-08-10 08:01:00 119.296 kg [facility] BMI 2019-08-10 08:01:00 45.14 kg/m2 [facility] Diastolic blood 2019-08-11 20:04:00 44 mm[Hg] Unive rsity of [facility] Heart rate 2019-08-11 20:04:00 70 /min [facility] [place] Body temperature 2019-08-11 20:04:00 36.61 Sandee [facility] Respiratory rate 2019-08-11 20:04:00 18 /min [facility] Oxygen saturation in 2019-08-11 20:04:00 91 /min [facility] Arterial blood by [facility] Pulse oximetry Branch Systolic blood 2019-08-11 20:04:00 107 mm[Hg] Univer [facility]ity of [facility] Body height 2019-08-10 08:01:00 162.6 cm [facility] [place] Body weight 2019-08-10 08:01:00 119.296 kg [facility] BMI 2019-08-10 08:01:00 45.14 kg/m2 Universi ty [facility] Branch Procedures Procedure Date / Time Performing Clinician Source Performed XR KNEE 3 VW RIGHT 2021-09-29 04:06:00 Sukhdev Koenig [facility] NOTICE OF PRIVACY 2021-09-29 02:46:43 Doctor Unassigned, [facility] PRACTICES [facility] CONSENT/REFUSAL FOR 2021-09-29 02:46:16 Doctor Unassigned, [facility] [place] [facility] [place] [facility] XR KNEE 3 VW LEFT 2021-04-02 20:10:[address] [facility] CONSENT/REFUSAL FOR 2021-04-02 17:59:31 Doctor Unassigned, [facility] DIAGNOSIS AND TREATMENT [facility] ASSIGNMENT OF BENEFITS 2021-03-10 20:29:46 Doctor Unassigned, Un [facility] PHOSPHORUS 2020-10-03 08:52:00 Kim Teixeiraherine [facility] MAGNESIUM 2020-10-03 08:52:00 Puneet [facility] COMP. METABOLIC PANEL 2020-10-03 08:52:00 Puneet [facility] ([id number]) [facility] CBC WITH DIFF 2020-10-03 08:52:00 Puneet [facility] COMP. METABOLIC PANEL 2020-10-02 08:39:00 Kim Teixeiraherine [facility] ([id number]) [facility] CBC WITH DIFF 2020-10-02 08:39:00 [facility] DUPLEX VENOUS ARM LEFT 2020-10-01 16:22:58 Brenda Teixeira [facility] - BY VASCULAR LAB [facility] COMP. METABOLIC PANEL 2020-10-01 07:45:00 Alka Tomasa [facility] ([id number]) [facility] CBC WITH DIFF 2020-10-01 07:45:00 Alka Tomasa [facility] TROPONIN I 2020-09-30 10:56:00 Marco Levy [facility] COMP. METABOLIC PANEL 2020-09-30 10:56:00 Shaina Brito [facility] ([id number]) [facility] CBC WITH DIFF 2020-09-30 10:56:00 Shaina Brito [facility] N-TERMINAL PRO-BNP 2020-09-30 08:05:00 Shaina Brito [facility] OCCULT (GUAIAC) BLOOD 2020-09-30 02:10:[address] [facility] FECAL LEUKOCYTES 2020-09-30 02:10:00 Millie sharad [facility] CLOSTRIDIUM DIFFICILE 2020-09-30 02:10:00 Millie sharad [facility] FECAL PATHOGENS BY PCR 2020-09-30 02:10:00 Shaina Brito [facility] POCT GLUCOSE (AUTOMATED) 2020-09-30 00:35:00 Rene Evans [facility] BASIC METABOLIC PANEL 2020-09-29 21:11:00 Shaina Brito [facility] (NA, K, CL, CO2, GLUCOSE, Medica l Branch BUN, CREATININE, CA) HEMOGLOBIN 2020-09-29 21:11:00 Alka Tomasa [facility] TRANSTHORACIC ECHO (TTE) 2020-09-29 16:03:00 Marco Levy [facility] HB ECG ROUTINE & RHYTHM 2020-09-29 11:18:58 Shaina Brito [facility] OSMOLALITY URINE 2020-09-29 08:56:00 Millie [facility] URINE CULTURE 2020-09-29 08:56:[address] [facility] SODIUM, URINE RANDOM 2020-09-29 08:56:00 Millie sharad [facility] PROTEIN CREAT RATIO URINE 2020-09-29 08:56:00 Shaina Brito [facility] BLOOD CULTURE SCREEN 2020-09-29 08:32:00 Shaina Brito [facility] LACTIC ACID WHOLE BLOOD 2020-09-29 08:32:00 Millie sharad [facility] VITAMIN B12, LEVEL 2020-09-29 08:31:00 Shaina Brito [facility] C-REACTIVE PROTEIN 2020-09-29 08:31:00 Shaina Brito [facility] IRON PANEL 2020-09-29 08:31:00 Millie Adnan [facility] SEDIMENTATION RATE 2020-09-29 08:31:00 Millie sharad [facility] DIFF CONSULT 2020-09-29 08:31:00 Millie [facility] CBC WITH DIFF 2020-09-29 08:31:[address] [facility] PROTHROMBIN TIME / INR 2020-09-29 08:31:00 Shaina Brito [facility] N-TERMINAL PRO-BNP 2020-09-29 08:31:00 Millie sharad [facility] VITAMIN D, 25-OH 2020-09-29 08:31:00 Millie [facility] PROCALCITONIN 2020-09-29 08:31:[address] [facility] COVID-19 (ID NOW RAPID 2020-09-29 05:10:00 Rene Evans [facility] TESTING) Medical Branch LAB ONLY COVID 2020-09-29 05:10:00 Rene [facility] INTERPRETATION [facility] CT ABDOMEN PELVIS W 2020-09-29 04:56:31 Rene Evans [facility] CONTRAST [facility] URINALYSIS 2020-09-29 04:19:00 Rene Evans [facility] PHOSPHORUS 2020-09-29 03:54:[address] [facility] CREATINE KINASE 2020-09-29 03:54:[address] [facility] URIC ACID 2020-09-29 03:54:[address] [facility] LIPASE 2020-09-29 03:54:00 Rene Evans [facility] MAGNESIUM 2020-09-29 03:54:[address] [facility] FERRITIN SERUM 2020-09-29 03:54:[address] [facility] TROPONIN I 2020-09-29 03:54:00 Marco Levy [facility] THYROID STIMULATING 2020-09-29 03:54:00 Shaina Brito [facility] HORMONE [facility] COMP. METABOLIC PANEL 2020-09-29 03:54:00 Rene Evans [facility] ([id number]) Medical [place] LIPID PANEL ([id number])(TOTAL 2020-09-29 03:54:00 Shaina Brito [facility] CHOLESTEROL, [facility] TRIGLYCERIDES, HDL) CBC WITH DIFF 2020-09-29 03:54:00 Rene Evans [facility] GLYCOSYLATED HEMOGLOBIN 2020-09-29 03:54:00 Millie [facility] (A1C) [facility] N-TERMINAL PRO-BNP 2020-09-29 03:54:00 Shaina Brito [facility] CONSENT/REFUSAL FOR 2020-09-29 03:18:51 Doctor Unassigned, [facility] DIAGNOSIS AND TREATMENT [place] [facility] NOTICE OF PRIVACY 2020-09-29 03:18:30 Doctor Unassigned, [facility] PRACTICES [place] [facility] [place] CT ABDOMEN PELVIS W 2019-08-11 14:50:46 Corby Ca [facility] CONTRAST [facility] COMP. METABOLIC PANEL 2019-08-11 08:00:00 Shaina Brito [facility] ([id number]) [facility] CBC WITH DIFFERENTIAL 2019-08-11 08:00:[address] [facility] CBC WITH DIFFERENTIAL 2019-08-11 08:00:[address] [facility] XR SMALL BOWEL SERIES 2019-08-10 21:18:[address] [facility] XR ABDOMEN 1 VW 2019-08-10 11:52:[address] [facility] PHOSPHORUS 2019-08-10 11:11:[address] [facility] CREATINE KINASE 2019-08-10 11:11:[address] [facility] AMYLASE 2019-08-10 11:11:[address] [facility] LIPASE 2019-08-10 11:11:[address] [facility] MAGNESIUM 2019-08-10 11:11:00 Shaian Brito [facility] TEST, SERUM 2019-08-10 11:11:[address] [facility] THYROID STIMULATING 2019-08-10 11:11:00 [facility] COMP. METABOLIC PANEL 2019-08-10 11:11:00 Shaina Brito [facility] ([id number]) [facility] LIPID PANEL (69132)(TOTAL 2019-08-10 11:11:00 Shaina Brito [facility] CHOLESTEROL, [facility] TRIGLYCERIDES, HDL) SEDIMENTATION RATE 2019-08-10 11:11:00 Shaina Brito [facility] CBC WITH DIFFERENTIAL 2019-08-10 11:11:[address] [facility] GLYCOSYLATED HEMOGLOBIN 2019-08-10 11:11:00 Shaina Brito [facility] (A1C) [facility] PROTHROMBIN TIME / INR 2019-08-10 11:11:00 Shaina Brito [facility] CORONAVIRUS COVID-19 2019-08-10 09:04:00 Shaina Brito [facility] TESTING [facility] Encounters Start End Encounter Admission Attending Care Care Encounter Source Date/Time Date/Time Type Type Clinicians Facility Department ID 2021-10-13 Outpatient [facility]ummul [facility] [id number] Common 14:25:01 a, Madhu [facility] 2021-05-06 Outpatient Kattegummul [facility] [id number] Common 14:30:56 a, Madhu [facility] 2021-05-06 Outpatient Kattegummul STLMLC [facility] [id number] Common 14:26:04 a, Madhu [id number] [facility] 2021-05-06 Outpatient Kattegummul STLMLC ST[facility] [id number] Common 14:05:28 a, Madhu [id number] [facility] 2021-05-06 Outpatient Kattegummul [facility] [id number] Common 13:37:29 a, Madhu [id number] [facility] 2021-05-06 Outpatient SACHA Souza [facility] [id number] Common 13:36:02 Annalise [id number] [facility] 2021-05-06 Outpatient Harley STLUIS ALBERTO [facility] [id number] Common 11:25:36 Annalise 16086 [facility] 2021-02-09 Emergency [facility] [id number] Univers 02:25:27 ity [facility] 2021-10-21 2021-10-26 Inpatient RAFAEL GUERRERO [facility] [id number] [place] 00:00:00 00:00:00 914 Method i 2021-09-28 2021-09-29 Emergency X Sukhdev KOENIG [facility] ERT [id number] Univers 22:03:00 00:15:00 ity of [facility] 2021-09-28 2021-09-29 Emergency Sukhdev Koenig [facility] 1.2.840.114 [id number] Univers 22:03:00 00:15:00 Mary WHITT [id number] i ty of [place] 4.2.7.2.686 [facility] [id number] [facility] 084 Branch 2021-09-28 2021-09-28 Orders Doctor VERONIQUE 1.2.840.114 [id number] Univers 00:00:00 00:00:00 Only Unassigned, GONZALO [id number] ity of [place] [facility] 4.2.7.2.686 Quang [id number] [facility] 009 Branch 2021-04-07 2021-04-07 Letter Orthopedic [facility] 1.2.840.114 [id number] Univers 00:00:00 00:00:00 (Out) Clinic SPECIALTY [id number] ity of CARE 4.2.7.2.686 [facility] AT [phone] Me pritesh PATINO [address] [facility] 2021-04-02 2021-04-02 Emergency X BEATRIZ [facility] ERT [id number] Univers 12:58:00 15:25:00 FOLUSHO ity [facility] 2021-04-02 2021-04-02 Emergency Beatriz, [facility] 1.2.840.114 [id number] Univers 12:58:00 15:25:00 Azalea WHITT [id number] ity [facility] [place].2.[place] [phone] [facility] 084 [place] 2021-03-11 2021-03-11 Telephone VERONIQUE Cruz [id number] [id number] Univers 00:00:00 00:00:00 Frances CORTEZY 350.1.13.[address] [facility] 4.2.7.2.686 Quang as [id number] [facility] 019 [place] 2021-03-10 2021-03-10 Outpatient R [facility] [id number] Univers 14:45:00 14:51:40 LEXIE ity [facility] 2021-03-10 2021-03-10 Outpatient R [facility] [id number] Univers 14:45:00 14:45:00 [id number] ity [facility] 2021-03-10 2021-03-10 Laboratory Only, Ang Db Test [facility] 1.2.8 40.114 [id number] Univers 14:29:53 14:44:53 Only Unknown, Attending HEALTH 350.1.13.10 ity [facility] 4.2.7.2.686 Quang as MARINA?BLEA [id number] Ct dical [address] MEDICAL OFFICE BUILDING 2021-03-10 2021-03-10 Orders Doctor VERONIQUE 1.2.840.114 [id number] Univers 00:00:00 00:00:00 Only Unassigned, GONZLAO 350.1.13.[address] [place] [facility] 4.2.7.2.686 Quang as [phone] [facility] 009 [place] 2021-02-18 2021-02-20 [facility] [id number] [place] 00:00:00 00:00:00 CHERI [address] 2021-02-03 2021-02-04 Emergency X [facility] [id number] Univers 21:10:00 03:21:00 GARTH ity of [facility] 2020-10-21 2020-10-27 Inpatient SYLVIA, [facility] [id number] [place] 00:00:00 00:00:[address]TH [address] 2020-10-06 2020-10-06 Transition Jocelyne Taylor 1.2.840.114 [id number] [facility] 00:00:00 00:00:00 of Care Madiha Coopery 350.1.13.10 i ty [place] [id number] [facility] 403 Branch 2020-09-28 2020-10-03 [facility] Rene Evans [facility] 1.2.840. 114 [id number] [facility] 22:23:00 13:05:00 Encounter Shaina Brito 350.1.13.10 ity of [place]2.[place] [id number] [facility] 081 Branch 2020-09-28 2020-09-28 Orders Doctor VERONIQUE 1.2.840.114 [id number] Univers 00:00:00 00:00:00 Only Unassigned, GONZALO 350.1.13.[address] [place] [facility] 4.2.7.2.686 Quang as [id number] [facility] 009 Branch 2020-09-09 2020-09-12 Inpatient VIKTOR BILLINGS [facility] [id number] [place] 00:00:00 00:00:00 462 Method i 2020-08-08 2020-08-08 Outpatient Sami GERMAN [facility] [id number] Univers 15:40:00 15:40:00 TERRI ity of [facility] 2020-07-11 2020-07-11 Outpatient [facility] [id number] Univers 15:40:00 15:40:00 ity of [facility] 2020-06-09 2020-06-22 Inpatient VIKTOR BILLINGS [facility] [id number] [place] 00:00:00 00:00:00 836 Method i 2020-03-19 2020-03-23 Inpatient JAIME [facility] [id number] [place] 00:00:00 00:00:00 CHERI 742 Method i 2020-03-14 2020-03-18 Inpatient JAIME [facility] [id number] [place] 00:00:00 00:00:00 CHERI 157 Method i 2020-02-13 2020-02-13 Laboratory Lab, [facility] 1.2.840.114 [id number] 10:22:10 10:42:10 Only Fam Pob I Health 350.1.13.10 [place] 4.2.7.2.686 Professio [id number] nal [address] [facility] 2020-02-13 2020-02-13 Laboratory Lab, [facility] Fam Pob I [facility] 1.2. 840.114 [id number] [facility] 10:22:10 10:42:10 Only [facility] 350.1.13.10 ity of [place] 4.2.7.2.686 Quang as Professio [phone] Ct dical [address] Office Building One 2019-09-28 2019-09-28 Outpatient [facility] [id number] Common 09:00:00 09:00:00 t [facility] 2019-09-18 2019-09-18 Outpatient [facility] [id number] Common 09:30:00 09:30:00 t Bone Bone [facility] Spiri t and [facility] - [facility] 2019-08-14 2019-08-14 Transition Jocelyne Alexandra 1.2.840.114 [id number] 00:00:00 00:00:00 of Care Jovanny Coopery 350.1.13.10 [place] 4.2.7.2.686 [id number] [facility] 2019-08-14 2019-08-14 Transition Jocelyne Alexandra 1.2.840.114 [id number] [facility] 00:00:00 00:00:00 of Care Jovanny Souza S[place] 350.1.13.10 it[place] [id number] [place] [address] Branch 2019-08-10 2019-08-11 [facility] [id number] 02:55:00 16:09:00 Encounter Shaina Whitt 350.1.13.10 [place] 4.2.7.2.686 [place] [id number] 2019-08-10 2019-08-11 Inpatient U [facility] SHRUTI [id number] Univers 02:55:00 16:09:00 ADNAN ity [facility] 2019-08-10 2019-08-11 [facility] [id number] [facility] 02:55:00 16:09:00 Encounter [facility] 4.2.7.2.686 [facility] [phone] [address] Results Test Description Test Time Test Comments Results Result Comments Source SARS-CoV-2 (COVID-19) RNA [Presence] in Respiratory sp ecimen by 2021-10-22 00:33:54 HELENA with probe detection Test Item Value Reference Range Interpretation Comme nts SARS-CoV-2 (COVID-19) RNA [Presence] in Respiratory specimen by Not detected HELENA with probe detection (test code = 52831-6) 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 employed in a healthcare setting (test code = Un known 66643-6) Whether the patient has symptoms related to condition of interest U nknown (test code = 23324-3) Whether the patient was hospitalized for condition of interest Unkn own (test code = 04754-1) Whether the patient was admitted to intensive care unit (ICU) for U nknown condition of interest (test code = 50922-8) Whether patient resides in a congregate care setting (test code = U nknown 37782-2) status (test code = 27738-3) Unknown Date and time of symptom onset (test code = 80489-3) Unknown [id number] 09:34:08 Test Item Value Reference Range Interpretation Comments MAGNESIUM (test code = 1388491453) 1.4 mg/dL 1.7-2.4 L Lab Interpretation (test code = Abnormal 75430-9) [facility] (14577)2020-10-03 09:33:48 Test Item Value Reference Range Interpretation Comments NA (test code = 136 mmol/L 135-145 0355377335) K (test code = 3.3 mmol/L 3.5-5.0 L 3954586347) CL (test code = 100 mmol/L 98-108 4092081608) CO2 TOTAL (test code = 33 mmol/L 23-31 H 1198583071) AGAP (test code = 2-16 3938888551) BUN (test code = 3 mg/dL 7-23 L 1381607872) GLUCOSE (test code = 95 mg/dL 70-110 8646252659) CREATININE (test code = 0.47 mg/dL 0.50-1.04 L 0157801180) TOTAL BILI (test code = 1.5 mg/dL 0.1-1.1 H 3380984212) CALCIUM (test code = 8.1 mg/dL 8.6-10.6 L 7973148592) T PROTEIN (test code = 5.9 g/dL 6.3-8.2 L 5747161356) ALBUMIN (test code = 2.9 g/dL 3.5-5.0 L 1001020944) ALK PHOS (test code = 115 U/L 34-122 4028106335) ALTv (test code = 24 U/L 5-35 1742-6) AST(SGOT) (test code = 35 U/L 13-40 1782942553) eGFR (test code = mL/min/1.73m2 4032899174) SNOW (test code = SNOW) Association of [...] tests). Lab Interpretation Abnormal (test code = 41632-3) [facility] [place] [facility]2021-06-25 09:33:28 Test Item Value Reference Range Interpretation Comments PHOSPHORUS (test code = 2465420548) 2.8 mg/dL 2.5-5.0 Lab Interpretation (test code = Normal 80717-0) [facility] WITH [id number] 09:31:46 Test Item Value Reference Range Interpretation [...] (test code = 53.8 fL 39.0-49.9 H 60068-2) RDW-CV (test code = 19.9 % 12.0-15.5 H 788-0) PLT (test code = See_Comment L [Automated 777-3) message] The sy stem which generated this result transmitted reference range : 166 - 358 10*3/ ?L. The reference r davi was not used to interpret this result as normal/abnormal . MPV (test code = 10.9 fL 9.5-12.9 14788-7) IPF % (test code = 3.6 % 1.3-7.7 Platelet count 1517489228) measured by fluorescence method. NRBC/100 WBC (test See_Comment [Automat ed code = 8816526228) message] The system which generated this result transmitted reference range : 0.0 - 10.0 /100 WBCs. The refer ence range was not u sed to interpret th is result as normal/abnormal . NRBC x10^3 (test code See_Comment [Auto mated = 4093608167) message] The s ystem which generated this result transmitted reference range : 10*3/?L. The reference range was not used to interpret this result as normal/abnormal . GRAN MAT (NEUT) % 68.1 % (test code = 770-8) IMM GRAN % (test code 1.10 % = 9396261304) LYMPH % (test code = 15.5 % 736-9) MONO % (test code = 11.3 % 5905-5) EOS % (test code = 3.4 % 713-8) BASO % (test code = 0.6 % 706-2) GRAN MAT x10^3(ANC) 2.42 10*3/uL 1.88-7.09 (test code = 9831890668) IMM GRAN x10^3 (test 0.04 10*3/uL 0.00-0.06 code = 0878291258) LYMPH x10^3 (test code 0.55 10*3/uL 1.32-3.29 L = 731-0) MONO x10^3 (test code 0.40 10*3/uL 0.33-0.92 = 742-7) EOS x10^3 (test code = 0.12 10*3/uL 0.03-0.39 711-2) BASO x10^3 (test code <0.03 0.01-0.07 = 704-7) Lab Interpretation Abnormal (test code = 13453-6) [facility] WITH [id number] 10:47:09 Test Item Value Reference Range Interpretation [...] (test code = 52.2 fL 39.0-49.9 H 53626-6) RDW-CV (test code = 18.6 % 12.0-15.5 H 788-0) PLT (test code = See_Comment L [Automated 777-3) message] The sy stem which generated this result transmitted reference range : 166 - 358 10*3/ ?L. The reference r davi was not used to interpret this result as normal/abnormal . MPV (test code = 10.1 fL 9.5-12.9 90344-6) IPF % (test code = 3.2 % 1.3-7.7 Platelet count 1447736599) measured by fluorescence method. NRBC/100 WBC (test See_Comment [Automat ed code = 1958547511) message] The system which generated this result transmitted reference range : 0.0 - 10.0 /100 WBCs. The refer ence range was not u sed to interpret th is result as normal/abnormal . NRBC x10^3 (test code See_Comment [Auto mated = 8465891403) message] The s ystem which generated this result transmitted reference range : 10*3/?L. The reference range was not used to interpret this result as normal/abnormal . GRAN MAT (NEUT) % 65.1 % (test code = 770-8) IMM GRAN % (test code 1.20 % = 4902865778) LYMPH % (test code = 16.9 % 736-9) MONO % (test code = 11.5 % 5905-5) EOS % (test code = 4.5 % 713-8) BASO % (test code = 0.8 % 706-2) GRAN MAT x10^3(ANC) 1.58 10*3/uL 1.88-7.09 L (test code = 2806389575) IMM GRAN x10^3 (test 0.03 10*3/uL 0.00-0.06 code = 6848855159) LYMPH x10^3 (test code 0.41 10*3/uL 1.32-3.29 L = 731-0) MONO x10^3 (test code 0.28 10*3/uL 0.33-0.92 L = 742-7) EOS x10^3 (test code = 0.11 10*3/uL 0.03-0.39 711-2) BASO x10^3 (test code <0.03 0.01-0.07 = 704-7) POLYCHROMASIA (test 2+ See_Comment [Automa josemanuel code = 47306-4) message] The system which generated this result transmitted reference range : 2+. The referen ce range was not u sed to interpret th is result as normal/abnormal . LG GRAN LYMPHS (test Rare Rare code = 8327213334) Lab Interpretation Abnormal (test code = 10459-4) [facility] METABOLIC PANEL ([id number])2020-10-02 10:19:28 Test Item Value Reference Range Interpretation Comments NA (test code = 135 mmol/L 135-145 3251332234) K (test code = 3.4 mmol/L 3.5-5.0 L 7718717691) CL (test code = 104 mmol/L 98-108 8128576845) CO2 TOTAL (test code = 27 mmol/L 23-31 7750904181) AGAP (test code = 2-16 6709006714) BUN (test code = 4 mg/dL 7-23 L 2116501412) GLUCOSE (test code = 97 mg/dL 70-110 3743923309) CREATININE (test code = 0.45 mg/dL 0.50-1.04 L 1243726318) TOTAL BILI (test code = 1.7 mg/dL 0.1-1.1 H 3680322190) CALCIUM (test code = 8.2 mg/dL 8.6-10.6 L 2500129632) T PROTEIN (test code = 6.0 g/dL 6.3-8.2 L 9135239579) ALBUMIN (test code = 3.1 g/dL 3.5-5.0 L 4540912903) ALK PHOS (test code = 120 U/L 34-122 6241449949) ALTv (test code = 26 U/L 5-35 1742-6) AST(SGOT) (test code = 39 U/L 13-40 2933378242) eGFR (test code = mL/min/1.73m2 7324001668) SNOW (test code = SNOW) Association of [...] tests). Lab Interpretation Abnormal (test code = 63532-5) [facility] COVID [id number] 02:50:27COVID DMT InterpretationInterpretation/Recommendations: Molecular NAAT Tests for [...] week of symptoms). Tests for IgM and/or IgG Antibodies to the SARS-CoV-2 Virus: If the patient develops COVID-19 illness in the future, testing for IgM and IgG antibodies approximately 3 weeks [...] COVID-19 testing the patient has had at [facility], including molecular NAAT testing (more commonly known as PCR testing and Rapid ID Now testing) and antibody testing. It does not take into account any testingthat a patient has had outside of the [facility] medical record. [facility] LABORATORY SERVICESCOVID XahxphzVQUB-SqA-4 NAAT (no units) ? ? Date ? Value ? 02/13/2020 ? Not Detected ? SARS-CoV-2 Rapid ID NOW (no units) ? ? Date ? Value ? 09/29/2020 ? Not Detected ? ? ? 08/10/2019 ? Not Detected ? [facility] WITH [id number] 10:31:29 Test Item Value Reference Range Interpretation [...] (test code = 52.3 fL 39.0-49.9 H 53857-0) RDW-CV (test code = 18.4 % 12.0-15.5 H 788-0) PLT (test code = See_Comment LL [Automated 777-3) message] The sy stem which generated this result transmitted reference range : 166 - 358 10*3/ ?L. The reference r davi was not used to interpret this result as normal/abnormal . MPV (test code = 11.2 fL 9.5-12.9 11285-0) IPF % (test code = 3.9 % 1.3-7.7 Platelet count 7919389199) measured by fluorescence method. NRBC/100 WBC (test See_Comment [Automat ed code = 7888700870) message] The system which generated this result transmitted reference range : 0.0 - 10.0 /100 WBCs. The refer ence range was not u sed to interpret th is result as normal/abnormal . NRBC x10^3 (test code <0.01 See_Comment [Auto mated = 6946211625) message] The s ystem which generated this result transmitted reference range : 10*3/?L. The reference range was not used to interpret this result as normal/abnormal . GRAN MAT (NEUT) % 57.5 % (test code = 770-8) IMM GRAN % (test code 0.50 % = 9564254086) LYMPH % (test code = 20.7 % 736-9) MONO % (test code = 13.3 % 5905-5) EOS % (test code = 6.9 % 713-8) BASO % (test code = 1.1 % 706-2) GRAN MAT x10^3(ANC) 1.08 10*3/uL 1.88-7.09 L (test code = 2606902963) IMM GRAN x10^3 (test <0.03 0.00-0.06 code = 5913608177) LYMPH x10^3 (test code 0.39 10*3/uL 1.32-3.29 L = 731-0) MONO x10^3 (test code 0.25 10*3/uL 0.33-0.92 L = 742-7) EOS x10^3 (test code = 0.13 10*3/uL 0.03-0.39 711-2) BASO x10^3 (test code <0.03 0.01-0.07 = 704-7) BASO STIPPLING (test Present A code = 703-9) ELLIPTO/OVAL (test 2+ See_Comment A [Automat ed code = 59991-3) message] The system which generated this result transmitted reference range : (none). The reference range was not used to interpret this result as normal/abnormal . POLYCHROMASIA (test 2+ See_Comment [Automa josemanuel code = 78695-6) message] The system which generated this result transmitted reference range : 2+. The referen ce range was not u sed to interpret th is result as normal/abnormal . Lab Interpretation Abnormal (test code = 68889-0) [facility]. METABOLIC PANEL ([id number])2020-10-01 09:19:22 Test Item Value Reference Range Interpretation Comments NA (test code = 135 mmol/L 135-145 1466356720) K (test code = 4.0 mmol/L 3.5-5.0 4330452190) CL (test code = 107 mmol/L 98-108 2334334406) CO2 TOTAL (test code = 24 mmol/L 23-31 3678022722) AGAP (test code = 2-16 0374329922) BUN (test code = 7 mg/dL 7-23 6275234849) GLUCOSE (test code = 93 mg/dL 70-110 2317852807) CREATININE (test code = 0.47 mg/dL 0.50-1.04 L 3237535625) TOTAL BILI (test code = 1.6 mg/dL 0.1-1.1 H 2309928401) CALCIUM (test code = 8.1 mg/dL 8.6-10.6 L 5715028666) T PROTEIN (test code = 5.8 g/dL 6.3-8.2 L 0072512160) ALBUMIN (test code = 2.8 g/dL 3.5-5.0 L 8690990649) ALK PHOS (test code = 106 U/L 34-122 5877698021) ALTv (test code = 23 U/L 5-35 1742-6) AST(SGOT) (test code = 39 U/L 13-40 6865412654) eGFR (test code = mL/min/1.73m2 3327168827) SNOW (test code = SNOW) Association of [...] tests). Lab Interpretation Abnormal (test code = 96965-8) [facility] ResourcesYAZAN [id number] 20:47:45 Test Item Value Reference Range Interpretation Comments TROPONIN I (test 0.002 ng/mL See_Comment [Automated code = 9278134036) message] The system which generated this result [...] ? Lab Interpretation Normal (test code = 93307-2) [facility] ResourcesURINE [id number] 19:11:57 Test Item Value Reference Range Interpretation Comments URINE CULTURE (test code <10,000 CFU/mL = 630-4) Gram-Positive Cocci [facility] ResourcesFECAL PATHOGENS BY [id number] 18:17:03 Test Item Value Reference Range Interpretation Comments Campylobacter (jejuni, Negative Negative, coli and upsaliensis) Indeterminate, (test code = 63509-6) See comment Plesiomonas shigelloides Negative Negative, (test code = 69335-0) Indeterminate, See comment Salmonella (test code = Negative Negative, 96628-8) Indeterminate, See comment Yersinia enterocolitica Negative Negative, (test code = 88258-5) Indeterminate, See comment Vibrio (test code = Negative Negative, 20534-0) Indeterminate, See comment Vibrio cholerae (test Negative Negative, code = 37372-5) Indeterminate, See comment Enteroaggregative E. Negative Negative, coli (EAEC) (test code = Indeterminate, 77462-7) See comment Enteropathogenic E. coli Negative Negative, N/A, (EPEC) (test code = Indeterminate, 10090-4) See comment Enterotoxigenic E. coli Negative Negative, (ETEC) (test code = Indeterminate, 24686-0) See comment Shiga toxin-Producing E. Negative Negative, coli (STEC) (test code = Indeterminate, 18888-2) See comment Shigella/Enteroinvasive Negative Negative, E. coli (EIEC) (test Indeterminate, code = 14903-1) See comment Cryptosporidium (test Negative Negative, code = 75966-0) Indeterminate, See comment Cyclospora cayetanensis Negative Negative, (test code = 65423-5) Indeterminate, See comment Entamoeba histolytica Negative Negative, (test code = 71225-3) Indeterminate, See comment Giardia lamblia (test Negative Negative, code = 53199-2) Indeterminate, See comment Adenovirus F 40/41 (test Negative Negative, code = 27303-9) Indeterminate, See comment Astrovirus (test code = Negative Negative, 07762-3) Indeterminate, See comment Norovirus GI/GII (test Negative Negative, code = 31265-4) Indeterminate, See comment Rotavirus A (test code = Negative Negative, 05248-2) Indeterminate, See comment Sapovirus (test code = Negative Negative, 58317-9) Indeterminate, See comment Clostridioides Positive Negative, A (Clostridium) difficile Indeterminate, Toxin A/B (test code = See comment 62619-6) SNOW (test code = SNOW) Based on TrewCapArray GI Panel package insert, the TrewCapArray GI Panel contains a single multiplexed assay [...] the binary toxin gene (CDT), and the ntqiog-nwee-ofrv deletion at nucleotide 117 within the gene [...] organism. Lab Interpretation (test Abnormal code = 61582-4) [facility] ResourcesOCCULT (GUAIAC) [id number] 14:26:32 Test Item Value Reference Range Interpretation Comments Occult (guaiac) Blood (test code = Negative Negative 2335-8) Lab Interpretation (test code = Normal 74839-2) [facility] WITH [id number] 13:54:12 Test Item Value Reference Range Interpretation [...] (test code = 52.9 fL 39.0-49.9 H 82593-2) RDW-CV (test code = 18.3 % 12.0-15.5 H 788-0) PLT (test code = See_Comment LL [Automated 777-3) message] The sy stem which generated this result transmitted reference range : 166 - 358 10*3/ ?L. The reference r davi was not used to interpret this result as normal/abnormal . MPV (test code = 10.8 fL 9.5-12.9 90523-0) IPF % (test code = 4.2 % 1.3-7.7 Platelet count 5437651273) measured by fluorescence method. NRBC/100 WBC (test See_Comment [Automat ed code = 2036081885) message] The system which generated this result transmitted reference range : 0.0 - 10.0 /100 WBCs. The refer ence range was not u sed to interpret th is result as normal/abnormal . NRBC x10^3 (test code <0.01 See_Comment [Auto mated = 6691148612) message] The s ystem which generated this result transmitted reference range : 10*3/?L. The reference range was not used to interpret this result as normal/abnormal . GRAN MAT (NEUT) % 60.0 % (test code = 770-8) IMM GRAN % (test code 0.40 % = 0984562908) LYMPH % (test code = 20.6 % 736-9) MONO % (test code = 11.3 % 5905-5) EOS % (test code = 6.9 % 713-8) BASO % (test code = 0.8 % 706-2) GRAN MAT x10^3(ANC) 1.49 10*3/uL 1.88-7.09 L (test code = 6804242129) IMM GRAN x10^3 (test <0.03 0.00-0.06 code = 9204965079) LYMPH x10^3 (test code 0.51 10*3/uL 1.32-3.29 L = 731-0) MONO x10^3 (test code 0.28 10*3/uL 0.33-0.92 L = 742-7) EOS x10^3 (test code = 0.17 10*3/uL 0.03-0.39 711-2) BASO x10^3 (test code <0.03 0.01-0.07 = 704-7) Lab Interpretation Abnormal (test code = 52899-7) [facility]COMP. METABOLIC PANEL (40389)2020-09-30 12:47:49 Test Item Value Reference Range Interpretation Comments NA (test code = 135 mmol/L 135-145 1689393362) K (test code = 4.0 mmol/L 3.5-5.0 6725612050) CL (test code = 108 mmol/L 98-108 2089879245) CO2 TOTAL (test code = 23 mmol/L 23-31 9290912402) AGAP (test code = 2-16 6525150812) BUN (test code = 8 mg/dL 7-23 8219816427) GLUCOSE (test code = 109 mg/dL 70-110 3807357679) CREATININE (test code = 0.52 mg/dL 0.50-1.04 4115855515) TOTAL BILI (test code = 1.7 mg/dL 0.1-1.1 H 5009689113) CALCIUM (test code = 8.0 mg/dL 8.6-10.6 L 8545191167) T PROTEIN (test code = 5.7 g/dL 6.3-8.2 L 1331004454) ALBUMIN (test code = 2.7 g/dL 3.5-5.0 L 3341068133) ALK PHOS (test code = 106 U/L 34-122 9126694498) ALTv (test code = 22 U/L 5-35 2-6) AST(SGOT) (test code = 34 U/L 13-40 4122675422) eGFR (test code = mL/min/1.73m2 0619797712) SNOW (test code = SNOW) Association of [...] tests). Lab Interpretation Abnormal (test code = 54693-2) [facility] ResourcesFECAL [id number] 11:49:39 Test Item Value Reference Range Interpretation Comments Fecal Leukocytes (test code = Positive Negative A 8953063315) Lab Interpretation (test code = Abnormal 34377-2) [facility] ResourcesN-TERMINAL [id number] 10:20:53 Test Item Value Reference Range Interpretation Comments NT-proBNP (test code 68 pg/mL See_Comment [Autom ated = 5492146800) message] The system which generated this result transmitted reference range : <=125. The reference range was not used to interpret this result as normal/abnormal . SNOW (test code = SNOW) Biotin has been reported to cause a negative bias, interpret results relative to patient's use of biotin. Lab Interpretation Normal (test code = 65463-2) [facility] ResourcesCLOSTRIDIUM DIFFICILE [id number] 05:18:16 Test Item Value Reference Range Interpretation Comments Clostridioides (Clostridium) Negative Negative difficile (test code = 32641-8) Lab Interpretation (test code = Normal 79808-6) [facility] ResourcesPOMT GLUCOSE (AUTOMATED)2020-09-30 00:54:42 Test Item Value Reference Range Interpretation Comments POCT GLU (test code = 0555436754) 111 mg/dL 70-110 H Lab Interpretation (test code = Abnormal 91345-5) [facility] ResourcesBAC METABOLIC PANEL (NA, K, CL, CO2, GLUCOSE, BUN, CREATININE, CA)2020-09-29 22:08:22 Test Item Value Reference Range Interpretation Comments NA (test code = 135 mmol/L 135-145 7432860188) K (test code = 3.7 mmol/L 3.5-5.0 9465782234) CL (test code = 108 mmol/L 98-108 3839930965) CO2 TOTAL (test code = 22 mmol/L 23-31 L 8922988869) AGAP (test code = 2-16 3845063592) BUN (test code = 9 mg/dL 7-23 5337768473) GLUCOSE (test code = 104 mg/dL 70-110 9021780558) CREATININE (test code = 0.51 mg/dL 0.50-1.04 3149138509) CALCIUM (test code = 7.9 mg/dL 8.6-10.6 L 0925266654) eGFR (test code = mL/min/1.73m2 0919133213) SNOW (test code = SNOW) Association of [...] tests). Lab Interpretation Abnormal (test code = 03919-0) [facility] ResourcesHEMOGLOBIN2021-06-21 21:41:20 Test Item Value Reference Range Interpretation Comments HGB (test code = 718-7) 7.4 g/dL 11.6-15.0 L Lab Interpretation (test code = Abnormal 66463-0) [facility] ResourcesVITAMIN B12, [id number] 20:39:52 Test Item Value Reference Range Interpretation Comments VIT B12 (test code = 212 pg/mL 240-930 L 3576878030) SNOW (test code = SNOW) Biotin has been reported to cause a positive bias, interpret results relative to patient's use of biotin. Lab Interpretation (test Abnormal code = 80266-6) [facility] ResourcesDIFF CONSULT [id number] 17:24:18 LEUKOPENIA WITH ABSOLUTE LYMPHOPENIA, REACTIVE MONOCYTES AND TOXIC NEUTROPHILS INCLUDING OCCASIONAL VACUOLATED NEUTROPHILS SUGGESTIVE OF SYSTEMIC INFECTION/INFLAMMATION. EXCLUDE SEPSIS AND VIRAL INFECTION INCLUDING COVID-19. HYPERSEGMENTED NEUTROPHILS NOTED; SUGGEST VITAMIN B12 AND FOLATE LEVELS TO EXC LUDE EARLY DEFICIENCY. MICROCYTIC HYPOCHROMIC ANEMIA WITH POLYCHROMASIA AND ANISOPOIKILOCYTOSIS INCLUDING ELLIPTOCYTES. EXCLUDE ANATOMIC SOURCE OF BLOOD LOSS. EXCLUDE HEMOLYSIS. GIVEN LOW IRON AND BORDERLINE LOW FERRITIN, SUGGEST IRON SUPPLEMENTATION. 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.[facility] ResourcesC-REACTIVE [id number] 17:01:56 Test Item Value Reference Range Interpretation Comments CRP (test code = 3562890688) 4.7 mg/dL <0.8 H Lab Interpretation (test code = Abnormal 30095-9) [facility] ResourcesVITAMIN D, [id number] 16:43:29 Test Item Value Reference Range Interpretation Comments VIT D 25OH (test code = <13 25-80 L 74451-3) SNOW (test code = SNOW) Deficiency: <20 ng/mLInsufficiency: 20-24 ng/mLOptimal: 25-80 ng/mL Lab Interpretation (test Abnormal code = 85044-6) [facility] ResourcesPROCALCITONIN2021-06-21 16:15:30 Test Item Value Reference Range Interpretation Comments Procalcitonin (test 0.08 ng/mL <0.07 H code = 8658697501) SNOW (test code = SNOW) INTERPRETATION OF [...] lung abscess/empyema. For further information please refer to:[email or web address] Lab Interpretation Abnormal (test code = 33235-0) [facility] ResourcesOSMOLALITY [id number] 15:35:14 Test Item Value Reference Range Interpretation Comments OSMO U (test code = See_Comment [Automa josemanuel message] 6678912185) The system [employer] generated this result transmitted ref erence range: 50-1,100 mOsm/kg. The re ference range was not u sed to interpret this result as normal/abnor mal. Lab Interpretation (test Normal code = 71355-8) [facility] ResourcesTROPONIN [id number] 14:04:56 Test Item Value Reference Range Interpretation Comments TROPONIN I (test 0.002 ng/mL See_Comment [Automated code = 9462967583) message] The system which generated this result [...] ? Lab Interpretation Normal (test code = 61259-5) [facility] ResourcesCT ABDOMEN PELVIS W [id number] 13:37:17 1. ?Findings concerning for infectious or [...] THORAX: The lung bases are clear. LIVER: Nodularliver contour with heterogenous attenuation. GALLBLADDER & BILIARY [...] Results Inft User - 09/29/2020 8:[address] ABDOMEN PELVIS W CONTRASTHISTORY: Diverticulitis, complication suspected [...] .LYMPHATICS: No enlarged lymph nodes by CT size criteria.BONES AND SOFT TISSUES: No concerning bony lesion identified. Mild leftlateral flank and sacral edema.IMPRESSION1. Findings concerning for infectious or inflammatory colitis mostpronounced in the cecum, ascending colon and rectosigmoid with probableunderlying portal colopathy.2. Cirrhotic liver morphologywith portal hypertension manifested bysplenomegaly, extensive portosystemic collaterals and small volume ascites.3. Nonobstructive punctate right nephrolithiasis.Preliminary Report Dictated by Resident: Lázaro Laurent MD., have reviewed this study and agree with theabove report.[facility] WITH [id number] 11:41:25 Test Item Value Reference Range Interpretation Comments WBC (test code = See_Comment L [Automated 0890-2) message] The system which generated this result [...] (test code = 52.4 fL 39.0-49.9 H 40338-0) RDW-CV (test code = 18.2 % 12.0-15.5 H 788-0) PLT (test code = See_Comment LL [Automated 777-3) message] The system which generated this result transmit josemanuel reference range : 166 - 358 10*3/ ?L. The reference range was not u sed to interpret th is result as normal/abnormal . MPV (test code = Not Measure d 77006-7) IPF % (test code = 4.3 % 1.3-7.7 Platelet count 4330815686) measured by fluorescence method. NRBC/100 WBC (test See_Comment [Automat ed code = 2746238446) message] The system which generated this result transmit josemanuel reference range : 0.0 - 10.0 /100 WBCs. The reference range was not used to interpret this result as normal/abnormal . NRBC x10^3 (test code <0.01 See_Comment [Auto mated = 7361950606) message] The system which generated this result transmit josemanuel reference range : 10*3/?L. The reference range was not used to interpret this result as normal/abnormal . GRAN MAT (NEUT) % 74.4 % (test code = 770-8) IMM GRAN % (test code 0.50 % = 4406580476) LYMPH % (test code = 10.3 % 736-9) MONO % (test code = 12.3 % 5905-5) EOS % (test code = 2.0 % 713-8) BASO % (test code = 0.5 % 706-2) GRAN MAT x10^3(ANC) 3.02 10*3/uL 1.88-7.09 (test code = 9185336102) IMM GRAN x10^3 (test <0.03 0.00-0.06 code = 4376538292) LYMPH x10^3 (test 0.42 10*3/uL 1.32-3.29 L code = 731-0) MONO x10^3 (test code 0.50 10*3/uL 0.33-0.92 = 742-7) EOS x10^3 (test code 0.08 10*3/uL 0.03-0.39 = 711-2) BASO x10^3 (test code <0.03 0.01-0.07 = 704-7) PLT ESTIMATE (test Decreased Normal A code = 9317-9) SNOW (test code = SNOW) CBC smear reduced platelet Lab Interpretation Abnormal (test code = 55265-5) [facility] ResourcesN-TERMINAL [id number] 11:07:24 Test Item Value Reference Range Interpretation Comments NT-proBNP (test code 79 pg/mL See_Comment [Autom ated = 8468195599) message] The system which generated this result transmitted reference range : <=125. The reference range was not used to interpret this result as normal/abnormal . SNOW (test code = SNOW) Biotin has been reported to cause a negative bias, interpret results relative to patient's use of biotin. Lab Interpretation Normal (test code = 27152-8) [facility] ResourcesIRON [id number] 11:04:41 Test Item Value Reference Range Interpretation Comments IRON (test code = 8725853938) 31 ug/dL 50-160 L TIBC (test code = 1002018084) 295 ug/dL 250-410 % FE SAT (test code = 4487257289) 11 % 20-50 L Lab Interpretation (test code = Abnormal 17071-5) [facility] ResourcesPROTEIN CREAT RATIO URINE [id number] 10:57:19 Test Item Value Reference Range Interpretation Comments T. PROT U (test code = 2888-6) 9 mg/dL CREAT U (test code = 3325301820) 187.5 mg/dL Protein/Creatinine Ratio Urine 0.0-2.0 (test code = 0648143588) [facility] ResourcesSODIUM, URINE [id number] 10:53:21 Test Item Value Reference Range Interpretation Comments NA URINE (test code = 4099716687) 30 mmol/L [facility] ResourcesSEDIMENTATION [id number] 10:33:04 Test Item Value Reference Range Interpretation Comments ESR (test code = See_Comment [Automated message] 2225843039) The system [employer] generated this result transmitted ref erence range: 0 - 20 m m/HR. The reference r davi was not used to interpret this result as normal/abnor mal. Lab Interpretation (test Normal code = 66449-1) [facility] ResourcesPROTHROMBIN TIME / [id number] 09:43:39 Test Item Value Reference Range Interpretation Comments PROTIME PATIENT (test See_Comment H [Auto mated message] code = 5964-2) The system [employer] generated this result transmitted ref erence range: 12.0 - 1 4.7 Seconds. The reference range was not used to int erpret this result as normal/abnormal . INR (test code = 6301-6) Nor mal INR <1.1; Warfarin Therap eutic range 2.0 to 3. 0 or 2.5 to 3.5, dep ending upon the indica tions. Lab Interpretation (test Abnormal code = 83553-5) [facility] ResourcesLactic Acid Whole [id number] 08:42:38 Test Item Value Reference Range Interpretation Comments LACTIC ACID (test code = 1.47 mmol/L 0.50-2.20 8581504045) Lab Interpretation (test code = Normal 02578-8) [facility] ResourcesFERRITIN [id number] 07:31:09 Test Item Value Reference Range Interpretation Comments FERRITIN (test code = 12.2 ng/mL 11.0-264.0 5804603048) SNOW (test code = SNOW) Biotin has been reported to cause a negative bias, interpret results relative to patient's use of biotin. Lab Interpretation (test Normal code = 68461-5) [facility] ResourcesTHYROID STIMULATING [id number] 07:27:08 Test Item Value Reference Range Interpretation Comments TSH (test code = See_Comment [Automated message] 9283445609) The system [employer] generated this result transmitted ref erence range: 0.45 - 4 .70 mIU/L. The refe rence range was not u sed to interpret this result as normal/abnor mal. Lab Interpretation (test Normal code = 60525-7) [facility] ResourcesGLYCOSYLATED HEMOGLOBIN (A1C)2020-09-29 07:05:40 Test Item Value Reference Range Interpretation Comments HGB A1C (test code = 5.0 % 4.0-5.7 4548-4) SNOW (test code = SNOW) Reference RangesNormal: <5.7%Prediabetes: 5.7 - 6.4%Diabetes: > 6.5% Lab Interpretation (test Normal code = 71354-0) [facility] ResourcesURIC [id number] 07:05:35 Test Item Value Reference Range Interpretation Comments URIC ACID (test code = 8820520028) 4.2 mg/dL 2.9-6.0 Lab Interpretation (test code = Normal 07965-4) [facility] [facility] ResourcesCREATINE [id number] 07:05:30 Test Item Value Reference Range Interpretation Comments CK (test code = 7036713281) 192 U/L 33-194 Lab Interpretation (test code = Normal 51364-7) [facility] ResourcesN-TERMINAL [id number] 07:05:30 Test Item Value Reference Range Interpretation Comments NT-proBNP (test code 94 pg/mL See_Comment [Autom ated = 1668384253) message] The system which generated this result transmitted reference range : <=125. The reference range was not used to interpret this result as normal/abnormal . SNOW (test code = SNOW) Biotin has been reported to cause a negative bias, interpret results relative to patient's use of biotin. Lab Interpretation Normal (test code = 44441-7) [facility] ResourcesMAGNESIUM2021-06-21 07:04:24 Test Item Value Reference Range Interpretation Comments MAGNESIUM (test code = 3315736513) 1.8 mg/dL 1.7-2.4 Lab Interpretation (test code = Normal 81305-1) [facility] ResourcesPHOSPHORUS2021-06-21 07:03:39 Test Item Value Reference Range Interpretation Comments PHOSPHORUS (test code = 3644201416) 2.2 mg/dL 2.5-5.0 L Lab Interpretation (test code = Abnormal 64789-0) [facility] ResourcesLIPID PANEL ([id number])(TOTAL CHOLESTEROL, TRIGLYCERIDES, HDL)2020-09-29 06:56:06 Test Item Value Reference Range Interpretation Comments CHOL (test code = 132 mg/dL 120-200 8502740510) HDL (test code = 41 mg/dL >50 L 5114349476) HDLC RATIO (test code = See_Comment [Au tomated message] 8357445992) The system [employer] generated this result transmit josemanuel reference range : <=4.5. The refe rence range was not u sed to interpret th is result as normal/abnormal . TRIG (test code = 73 mg/dL 30-170 7155993953) LDL CHOL (test code = 76 mg/dL See_Comment [Auto mated message] 09423-0) The system [employer] generated this result transmit josemanuel reference range : <=160. The refe rence range was not u sed to interpret th is result as normal/abnormal . VLDL (test code = 15 mg/dL 5-60 0675065422) Lab Interpretation (test Abnormal code = 63969-1) [facility] ResourcesCOVID-19 (ID NOW RAPID TESTING)2020-09-29 06:24:26 Test Item Value Reference Range Interpretation Comments SARS-CoV-2 Rapid ID NOW Not Detected Not Detected (test code = 80604-5) SNOW (test code = SNOW) ID NOW COVID-19 Assay is an isothermal nucleic acid amplification test intended for the qualitative detection of nucleic acid from SARS-CoV-2 viral RNA in nasopharyngeal (ONLINE MARKETING ANALYST) specimens. It is used under Emergency Use [...] indicated. Lab Interpretation Normal (test code = 91286-8) [facility] ResourcesURINALYSIS2021-06-21 04:43:31 Test Item Value Reference Range Interpretation Comments APPEARANCE (test code = Clear Clear 0035732007) COLOR (test code = Rosanne Yellow A 4586896513) PH (test code = 4.8-8.0 7743963790) SP GRAVITY (test code = 1.003-1.030 8611068202) GLU U QUAL (test code = Normal Normal 6247961074) BLOOD (test code = Negative Negative 5430574803) KETONES (test code = Negative Negative 6305151908) PROTEIN (test code = 30 mg/dL Negative A 2887-8) UROBILIN (test code = Normal Normal 2485720910) BILIRUBIN (test code = Negative Negative 1521377728) NITRITE (test code = Negative Negative 8216498983) LEUK RANULFO (test code = 25/uL Negative A 3310017466) RBC/HPF (test code = See_Comment [Autom ated message] 0990136709) The system [employer] generated this result transmitted ref erence range: 0 - 3 HP F. The reference range was not used to int erpret this result as normal/abnormal . WBC/HPF (test code = See_Comment [Autom ated message] 9319076397) The system [employer] generated this result transmitted ref erence range: 0 - 5 HP F. The reference range was not used to int erpret this result as normal/abnormal . BACTERIA (test code = Few Negative A 0919010711) MUCOUS (test code = Moderate Negative LPF A 3957099295) SQ EPITH (test code = HPF 1215159816) Lab Interpretation (test Abnormal code = 75897-5) [facility] WITH [id number] 04:39:35 Test Item Value Reference Range Interpretation Comments WBC (test code = See_Comment [Automated 6490-2) message] The system which generated this result transmit josemanuel reference range : 4.30 - 11.10 10*3/?L. The reference range was not used to interpret this result as normal/abnormal . RBC (test code = See_Comment L [Automated 769-8) message] The system which generated this result [...] (test code = 51.3 fL 39.0-49.9 H 03023-0) RDW-CV (test code = 18.1 % 12.0-15.5 H 788-0) PLT (test code = See_Comment L [Automated 777-3) message] The system which generated this result transmit josemanuel reference range : 166 - 358 10*3/ ?L. The reference range was not u sed to interpret th is result as normal/abnormal . MPV (test code = 11.1 fL 9.5-12.9 70451-6) IPF % (test code = 3.7 % 1.3-7.7 Platelet count 0549581833) measured by fluorescence method. NRBC/100 WBC (test See_Comment [Automat ed code = 3073685733) message] The system which generated this result transmit josemanuel reference range : 0.0 - 10.0 /100 WBCs. The reference range was not used to interpret this result as normal/abnormal . NRBC x10^3 (test code <0.01 See_Comment [Auto mated = 6513535284) message] The system which generated this result transmit josemanuel reference range : 10*3/?L. The reference range was not used to interpret this result as normal/abnormal . GRAN MAT (NEUT) % 76.4 % (test code = 770-8) IMM GRAN % (test code 0.80 % = 6246399780) LYMPH % (test code = 9.4 % 736-9) MONO % (test code = 11.3 % 5905-5) EOS % (test code = 1.5 % 713-8) BASO % (test code = 0.6 % 706-2) GRAN MAT x10^3(ANC) 4.07 10*3/uL 1.88-7.09 (test code = 7133446861) IMM GRAN x10^3 (test 0.04 10*3/uL 0.00-0.06 code = 6931138412) LYMPH x10^3 (test 0.50 10*3/uL 1.32-3.29 L code = 731-0) MONO x10^3 (test code 0.60 10*3/uL 0.33-0.92 = 742-7) EOS x10^3 (test code 0.08 10*3/uL 0.03-0.39 = 711-2) BASO x10^3 (test code 0.03 10*3/uL 0.01-0.07 = 704-7) PLT ESTIMATE (test Decreased Normal A code = 9317-9) SNOW (test code = SNOW) Juan slide adgrees to decreased Platelet Lab Interpretation Abnormal (test code = 31726-6) [facility] ResourcesCOMP. METABOLIC PANEL (30690)2020-09-29 04:25:42 Test Item Value Reference Range Interpretation Comments NA (test code = 134 mmol/L 135-145 L 1552324452) K (test code = 3.2 mmol/L 3.5-5.0 L 8074063360) CL (test code = 104 mmol/L 98-108 4610013847) CO2 TOTAL (test code = 24 mmol/L 23-31 1208130348) AGAP (test code = 2-16 1849908143) BUN (test code = 8 mg/dL 7-23 1192136456) GLUCOSE (test code = 105 mg/dL 70-110 4865125158) CREATININE (test code = 0.51 mg/dL 0.50-1.04 5578114280) TOTAL BILI (test code = 2.5 mg/dL 0.1-1.1 H 3494527148) CALCIUM (test code = 8.2 mg/dL 8.6-10.6 L 6290460401) T PROTEIN (test code = 6.3 g/dL 6.3-8.2 7227155599) ALBUMIN (test code = 3.1 g/dL 3.5-5.0 L 0830230586) ALK PHOS (test code = 136 U/L 34-122 H 8768142503) ALTv (test code = 24 U/L 1742-6) AST(SGOT) (test code = 30 U/L 1340 7402965541) eGFR (test code = mL/min/1.73m2 3980509449) SNOW (test code = SNOW) Association of [...] tests). Lab Interpretation Abnormal (test code = 45685-5) [facility] ResourcesLIPASE2021-06-21 04:25:42 Test Item Value Reference Range Interpretation Comments LIPASE (test code = 2103014262) 102 U/L 0-220 Lab Interpretation (test code = Normal 95960-0) [facility] ResourcesSARS-CoV-2 (COVID-19) RNA [Presence] in Respiratory specimen by HELENA with probe [id number] 00:49:19 Test Item Value Reference Range Interpretation Comments SARS-CoV-2 (COVID-19) RNA Not detected Not-Detected [Presence] in Respiratory specimen by HELENA with probe detection (test code = 09143-0) 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 employed in a healthcare setting (test code = 08600-7) Whether the patient has symptoms related to condition of interest (test code = 95741-0) Patient was hospitalized because of this condition (test code = 33638-8) Whether the patient was admitted to intensive care unit (ICU) for condition of interest (test code = 99569-0) Whether patient resides in a congregate care setting (test code = 35908-9) SARS-CoV-2 (COVID-19) RNA [Presence] in Respiratory specimen by HELENA with probe [id number] 02:47:43 Test Item Value Reference Range Interpretation Comments SARS-CoV-2 (COVID-19) RNA Not detected Not-Detected [Presence] in Respiratory specimen by HELENA with probe detection (test code = 15107-4) SARS-CoV-2 (COVID-19) RNA [Presence] in Respiratory specimen by HELENA with probe [id number] 16:32:37 Test Item Value Reference Range Interpretation Comments SARS-CoV-2 (COVID-19) RNA Not detected Not-Detected [Presence] in Respiratory specimen by HELENA with probe detection (test code = 52423-0) SARS-CoV-2 (COVID-19) RNA [Presence] in Respiratory specimen by HELENA with probe [id number] 05:29:57 Test Item Value Reference Range Interpretation Comments SARS-CoV-2 (COVID-19) RNA Not detected Not-Detected [Presence] in Respiratory specimen by HELENA with probe detection (test code = 03114-6) CT ABDOMEN PELVIS W [id number] 19:27:49 1. ?No evidence of small bowel [...] [facility], Radiant Results Inft User - 08/11/2019 2:28PM CDTEXAM: CT ABDOMEN AND PELVIS WITH CONTRASTHISTORY: Suspected small bowel obstruction.COMPARISON: CT of the abdomen dated 10/14/2017.TECHNIQUE AND FINDINGS: Contiguous axial imaging from the level ofthe lungbases through the pubic symphysis was performed after the uncomplicatedadministration of 120cc of intravenous Omnipaque contrast. Coronal andsagittal reconstructions were obtained. Auto mA and/or iterativereconstruction were used to reduce radiation dose.FINDINGS:LOWER THORAX: The lungs basesare clear. No cardiomegaly.LIVER: No focal hepatic lesions. Nodular liver contour.GALLBLADDER AND BILIARY TREE: Changes of cholecystectomy. No biliarydilatation.PANCREAS: No ductal dilation or masses.SPLEEN: The spleen is enlarged at 20 cm.ADRENAL GLANDS: No adrenal nodules.KIDNEYS: No hydronephrosis,stones, or masses.PELVIS/BLADDER: The urinary bladder is unremarkable. A 2.7 cm right ovarian cysticlesionis seen (2: 130). A 3.4 cm left ovarian simple cyst is seen (2:123)GI TRACT:No dilation or wall thickening.Interval improvement in the previously noted thickening of the rectal walland surrounding fat stranding.Oral contrast is seen in the large bowel loops.Changes of appendectomy with nonspecific inflammation in the pericecalregion. This was similarly noted on the prior study with no associated colonic wall thickening.VESSELS: The main portal vein is dilated at 17 mm.LYMPH NODES: No lymphadenopathy.PERITONEUM AND RETROPERITONEUM: Trace ascites is seen.BONES AND SOFT TISSUES: No suspicious lytic or sclerotic bony lesions.IMPRESSION1. No evidence of small bowel obstruction.2. 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 Nonspecific mesenteric inflammation inthe pericecal region with changesof prior appendectomy. There is no associated wall thickening in theadjacent bowel. This could be infectious and appears similar on the priorstudy.Preliminary Report Dic tated by Resident: Vilma Ortez, Frandy Rodriguez MD., have reviewed this study and agree with the abovereport.[facility] WITH [id number] 11:56:00 Test Item Value Reference Range Interpretation Comments WBC (test code = See_Comment L [Automated 6990-2) message] The sy stem which generated this result transmitted reference range : 4.30 - 11.10 10*3/?L. The reference range was not used to interpret this result as normal/abnormal . RBC (test code = See_Comment L [Automated 709-8) message] The sy stem which generated this [...] (test code = 58.0 fL 39-49.9 H 66059-0) RDW-CV (test code = 16.6 % 12-15.5 H 788-0) PLT (test code = See_Comment LL [Automated 777-3) message] The sy stem which generated this result transmitted reference range : 166 - 358 10*3/ ?L. The reference r davi was not used to interpret this result as normal/abnormal . MPV (test code = 11.0 fL 9.5-12.9 49305-0) IPF % (test code = 5.5 % 1.3-7.7 Platelet count 6300482442) measured by fluorescence method. NRBC/100 WBC (test See_Comment [Automat ed code = 4097045600) message] The system which generated this result transmitted reference range : 0.0 - 10.0 /100 WBCs. The refer ence range was not u sed to interpret th is result as normal/abnormal . NRBC x10^3 (test code <0.01 See_Comment [Auto mated = 6737370942) message] The s ystem which generated this result transmitted reference range : 10*3/?L. The reference range was not used to interpret this result as normal/abnormal . GRAN MAT (NEUT) % 57.6 % (test code = 770-8) IMM GRAN % (test code 0.00 % = 3033537129) LYMPH % (test code = 27.1 % 736-9) MONO % (test code = 11.8 % 5905-5) EOS % (test code = 3.1 % 713-8) BASO % (test code = 0.4 % 706-2) GRAN MAT x10^3(ANC) 1.47 10*3/uL 1.88-7.09 L (test code = 6871431878) IMM GRAN x10^3 (test <0.03 0-0.06 code = 3436872845) LYMPH x10^3 (test code 0.69 10*3/uL 1.32-3.29 L = 731-0) MONO x10^3 (test code 0.30 10*3/uL 0.33-0.92 L = 742-7) EOS x10^3 (test code = 0.08 10*3/uL 0.03-0.39 711-2) BASO x10^3 (test code <0.03 0.01-0.07 = 704-7) Lab Interpretation Abnormal (test code = 33064-4) [facility] ResourcesCOM. METABOLIC PANEL (57175)2019-08-11 10:42:00 Test Item Value Reference Range Interpretation Comments NA (test code = 138 mmol/L 135-145 1574196385) K (test code = 3.8 mmol/L 3.5-5 6328453177) CL (test code = 108 mmol/L 98-108 7542239791) CO2 TOTAL (test code = 24 mmol/L 23-31 5524619945) AGAP (test code = 2-16 3522288025) BUN (test code = 10 mg/dL 7-23 2077033622) GLUCOSE (test code = 108 mg/dL 70-110 4619306039) CREATININE (test code = 0.43 mg/dL 0.5-1.04 L 5944315398) TOTAL BILI (test code = 2.5 mg/dL 0.1-1.1 H 5009395353) CALCIUM (test code = 8.4 mg/dL 8.6-10.6 L 0438428546) T PROTEIN (test code = 6.1 g/dL 6.3-8.2 L 4595224971) ALBUMIN (test code = 3.1 g/dL 3.5-5 L 5411382832) ALK PHOS (test code = 102 U/L 34-122 4132575361) ALTv (test code = 52 U/L 5-35 H 1742-6) AST(SGOT) (test code = 63 U/L 13-40 H 5473621699) eGFR Calculation mL/min/1.73m2 (Non-) (test code = 4873020008) eGFR Calculation mL/min/1.73m2 () (test code = 6640006034) SNOW (test code = SNOW) Association of [...] tests). Lab Interpretation Abnormal (test code = 95573-5) [facility] ResourcesXR SMALL BOWEL [id number] 02:08:11 1. ?No bowel obstruction. No fluoroscopic images or fluoroscopic time. RL 6200 HISTORY: ?Abdominal pain COMPARISON: ?None FINDINGS: There is a nonobstructive bowel gas pattern. Contrast is seen throughoutthe entire small bowel and colon. No dilated loops of bowel demonstrated. [facility], Radiant Results Inft User - 08/10/2019 9:09 PM CDTHISTORY: Abdominal painCOMPARISON: NoneFINDINGS:There is a nonobstructive bowel gas pattern. Contrast is seen throughoutthe entire small bowel and colon. No dilated loops of bowel demonstrated.IMPRESSION1. No bowel obstruction.No fluoroscopic images or fluoroscopic time.RL 6200 UnEl [facility] HospitalSEDIMENTATION [id number] 16:19:00 Test Item Value Reference Range Interpretation Comments ESR (test code = See_Comment [Automated message] 6223078554) The system [employer] generated this result transmitted ref erence range: 0 - 20 m m/HR. The reference r davi was not used to interpret this result as normal/abnor mal. Lab Interpretation (test Normal code = 92675-9) [facility] ResourcesAbdominal 1 View - To confirm nasogastric tube [...] arepartially visualized. Cholecystectomy clips are noted. Branching hypoattenuatingstructure in thedistribution of the right kidney representing contrast from recent CTwithin the renal collecting system. No acute bony abnormalities are noted. [facility], Radiant Results Inft User - 08/10/2019 10:25 AM CDTEXAM: XR ABDOMEN 1 VWHISTORY: 59 years-old Female. Examination to evaluate for small b owelobstruction.COMPARISON: CT ABDOMEN PELVIS W CONTRAST, 10/14/2017.FINDINGS:Limited views of the upper abdomen demonstrate an enteric tube traversingthe diaphragm terminating in the gastric body.Gaseous distended but nondilated loops of large and small bowel arepartially visualized.Cholecystectomy clips are noted. Branching hypoattenuating structure in thedistribution of the right kidney representingcontrast from recent CTwithin the renal collecting system.No acute bony abnormalities are noted.IMPRESSION1. Enteric tube terminates in the gastric body.2. Gas-distended, nondilated large and small bowel in the visualized upperabdomen.Preliminary Report Dictated by Resident: Keo O KriderI, Nancy Skaug, MD., have reviewed this study and agree with the abovereport.[facility] WITH [id number] 13:48:00 Test Item Value Reference Range Interpretation [...] (test code = 58.4 fL 39-49.9 H 84073-3) RDW-CV (test code = 16.7 % 12-15.5 H 788-0) PLT (test code = See_Comment LL [Automated 777-3) message] The system which generated this result transmit josemanuel reference range : 166 - 358 10*3/ ?L. The reference range was not u sed to interpret th is result as normal/abnormal . MPV (test code = 10.5 fL 9.5-12.9 80639-9) IPF % (test code = 3.0 % 1.3-7.7 Platelet count 3989937760) measured by fluorescence method. NRBC/100 WBC (test See_Comment [Automat ed code = 2676793083) message] The system which generated this result transmit josemanuel reference range : 0.0 - 10.0 /100 WBCs. The reference range was not used to interpret this result as normal/abnormal . NRBC x10^3 (test code <0.01 See_Comment [Auto mated = 8978138752) message] The system which generated this result transmit josemanuel reference range : 10*3/?L. The reference range was not used to interpret this result as normal/abnormal . GRAN MAT (NEUT) % 57.1 % (test code = 770-8) IMM GRAN % (test code 0.40 % = 5651754067) LYMPH % (test code = 28.1 % 736-9) MONO % (test code = 10.4 % 5905-5) EOS % (test code = 3.6 % 713-8) BASO % (test code = 0.4 % 706-2) GRAN MAT x10^3(ANC) 1.42 10*3/uL 1.88-7.09 L (test code = 8878909526) IMM GRAN x10^3 (test <0.03 0-0.06 code = 4663027523) LYMPH x10^3 (test 0.70 10*3/uL 1.32-3.29 L code = 731-0) MONO x10^3 (test code 0.26 10*3/uL 0.33-0.92 L = 742-7) EOS x10^3 (test code 0.09 10*3/uL 0.03-0.39 = 711-2) BASO x10^3 (test code <0.03 0.01-0.07 = 704-7) PLT ESTIMATE (test Critically Normal AA code = 9317-9) Decreased Lab Interpretation Abnormal (test code = 55017-7) [facility] ResourcesGLYCOSYLATED HEMOGLOBIN (A1C)2019-08-10 13:13:00 Test Item Value Reference [...] Indicated Lab Interpretation Normal (test code = 07454-7) [facility] ResourcesTHYROID STIMULATING [id number] 13:05:00 Test Item Value Reference Range Interpretation Comments TSH (test code = See_Comment [Automated message] 9639027373) The system [employer] generated this result transmitted ref erence range: 0.45 - 4 .70 mIU/L. The refe rence range was not u sed to interpret this result as normal/abnor mal. Lab Interpretation (test Normal code = 51024-3) [facility] ResourcesPREGNANCY TEST, [id number] 13:04:00 Test Item Value Reference Range Interpretation Comments PREG SERUM (test code Negative = 4274211107) SNOW (test code = SNOW) Less than 10 IU/L. ?If low titer or ectopic is suspected, resubmit specimen in 48-72 hours. [facility] ResourcesLIPID PANEL (27284)(TOTAL CHOLESTEROL, TRIGLYCERIDES, HDL)2019-08-10 12:36:00 Test Item Value Reference Range Interpretation Comments CHOL (test code = 158 mg/dL 120-200 8949505753) HDL (test code = 47 mg/dL >50 L 5682635428) HDLC RATIO (test code = See_Comment [Au tomated message] 0129016409) The system [employer] generated this result transmit josemanuel reference range : <=4.5. The refe rence range was not u sed to interpret th is result as normal/abnormal . TRIG (test code = 51 mg/dL 30-170 2117931975) LDL CHOL (test code = 101 mg/dL See_Comment [Auto mated message] 49941-4) The system [employer] generated this result transmit josemanuel reference range : <=160. The refe rence range was not u sed to interpret th is result as normal/abnormal . VLDL (test code = 10 mg/dL 5-60 7217015129) Lab Interpretation (test Abnormal code = 64401-6) [facility] ResourcesCOMP. METABOLIC PANEL (89920)2019-08-10 12:35:00 Test Item Value Reference Range Interpretation Comments NA (test code = 139 mmol/L 135-145 7607510118) K (test code = 3.9 mmol/L 3.5-5 0621917285) CL (test code = 109 mmol/L 98-108 H 8315590661) CO2 TOTAL (test code = 25 mmol/L 23-31 9383439654) AGAP (test code = 2-16 8952046846) BUN (test code = 15 mg/dL 7-23 1149908007) GLUCOSE (test code = 218 mg/dL 70-110 H 8084766940) CREATININE (test code = 0.40 mg/dL 0.5-1.04 L 5387583118) TOTAL BILI (test code = 2.0 mg/dL 0.1-1.1 H 2029471796) CALCIUM (test code = 8.5 mg/dL 8.6-10.6 L 4774935123) T PROTEIN (test code = 6.2 g/dL 6.3-8.2 L 2341231383) ALBUMIN (test code = 3.1 g/dL 3.5-5 L 7821978310) ALK PHOS (test code = 99 U/L 34-122 1567767624) ALTv (test code = 42 U/L 5-35 H 1742-6) AST(SGOT) (test code = 49 U/L 13-40 H 0430743730) eGFR Calculation mL/min/1.73m2 (Non-) (test code = 1731450812) eGFR Calculation mL/min/1.73m2 () (test code = 9965641126) SNOW (test code = SNOW) Association of [...] tests). Lab Interpretation Abnormal (test code = 56334-7) [facility] ResourcesMAGNESIUM2020-05-01 12:35:00 Test Item Value Reference Range Interpretation Comments MAGNESIUM (test code = 2711341424) 1.6 mg/dL 1.7-2.4 L Lab Interpretation (test code = Abnormal 43700-7) [facility] ResourcesPHOSPHORUS2020-05-01 12:35:00 Test Item Value Reference Range Interpretation Comments PHOSPHORUS (test code = 6198278432) 3.6 mg/dL 2.5-5 Lab Interpretation (test code = Normal 20202-7) [facility] ResourcesCREATINE [id number] 12:35:00 Test Item Value Reference Range Interpretation Comments CK (test code = 3156019967) 123 U/L 33-194 Lab Interpretation (test code = Normal 23439-9) [facility] ResourcesLIPASE2020-05-01 12:35:00 Test Item Value Reference Range Interpretation Comments LIPASE (test code = 7979830347) 141 U/L 0-220 Lab Interpretation (test code = Normal 30153-8) [facility] ResourcesAMYLASE2020-05-01 12:34:00 Test Item Value Reference Range Interpretation Comments LIN (test code = 4339693002) 73 U/L 35-110 Lab Interpretation (test code = Normal 16934-1) [facility] ResourcesPROTHROMBIN TIME / [id number] 12:07:00 Test Item Value Reference Range Interpretation Comments PROTIME PATIENT (test See_Comment H [Auto mated message] code = 5964-2) The system [employer] generated this result transmitted ref erence range: 12.0 - 1 4.7 Seconds. The reference range was not used to int erpret this result as normal/abnormal . INR (test code = 6301-6) Nor mal INR <1.1; Warfarin Therap eutic range 2.0 to 3. 0 or 2.5 to 3.5, dep ending upon the indica tions. Lab Interpretation (test Abnormal code = 79458-5) [facility] ResourcesCORONAVIRUS COVID-19 [id number] 10:18:00 Test Item Value Reference Range Interpretation Comments SARS-CoV-2 (test code = Not Detected Not Detected 10374-8) SNOW (test code = SNOW) ID NOW COVID-19 Assay is an isothermal nucleic acid amplification test intended for the qualitative detection of nucleic acid from SARS-CoV-2 viral RNA in nasopharyngeal (ONLINE MARKETING ANALYST) specimens. It is used under Emergency Use [...] indicated. Lab Interpretation Normal (test code = 92945-0) [facility], 1 VIEW, NON [id number] 07:50:00Reason for exam:->SOBShould this be performed at the bedside?->Yes FINAL REPORT CLINICAL HISTORY: SOB TECHNIQUE: 1 view of the chest. COMPARISON: None IMPRESSION: There is pulmonary vascular congestion with prominent lung markings bilaterally. Subpulmonic pleural effusions cannot be excluded. The cardiomediastinal silhouette is magnified by technique. Signed: Franky Louis MDReport Verified Date/Time: 10/03/2018 07:50:47 Reading Location: [facility] Radiology Reading Room [id number] 07:37:00 Test Item Value Reference Range Interpretation Comments MAGNESIUM (BEAKER) (test code = 1.6 mg/dL 1.6-2.6 627) BASIC METABOLIC [id number] 07:37:00 Test Item Value Reference Range Interpretation [...] DIALYSIS PATIEN TS. Specimen slightly ictericHEPATIC FUNCTION [id number] 07:37:00 Test Item Value Reference Range Interpretation [...] 35 U/L 6-55 347) Specimen slightly ictericPROTHROMBIN [id number] 06:25:00 Test Item Value Reference Range Interpretation [...] is 2.5-3.5 for patients wiht mechanical heart valves.CBC W/PLT COUNT & AUTO [id number] 06:16:00 Test Item Value Reference Range Interpretation [...] = 3438) Received comment: User comments: Slide comments:[id number] 05:58:00 Test Item Value Reference Range Interpretation Comments MAGNESIUM (BEAKER) (test code = 1.6 mg/dL 1.6-2.6 627) BASIC METABOLIC [id number] 05:58:00 Test Item Value Reference Range Interpretation [...] DIALYSIS PATIEN TS. Specimen slightly ictericHEPATIC FUNCTION [id number] 05:58:00 Test Item Value Reference Range Interpretation [...] 39 U/L 6-55 347) Specimen slightly ictericPROTHROMBIN [id number] 05:26:00 Test Item Value Reference Range Interpretation [...] is 2.5-3.5 for patients wiht mechanical heart valves.CBC W/PLT COUNT & AUTO [id number] 05:20:00 Test Item Value Reference Range Interpretation [...] WBC 0-0 (test code = 413) VITAMIN [id number] 06:57:00 Test Item Value Reference Range Interpretation Comments VITAMIN B12 (BEAKER) (test code = 178 pg/mL 213-816 L 774) [id number] 06:57:00 Test Item Value Reference Range Interpretation Comments FERRITIN (BEAKER) (test code = 361) 21 ng/mL 5-275 FOLATE, [id number] 06:57:00 Test Item Value Reference Range Interpretation [...] 28 % 20-55 (test code = 2590) [id number] 05:59:00 Test Item Value Reference Range Interpretation Comments MAGNESIUM (BEAKER) (test code = 1.7 mg/dL 1.6-2.6 627) BASIC METABOLIC [id number] 05:59:00 Test Item Value Reference Range Interpretation [...] FOR DIALYSIS PATIEN TS. Specimen slightly ictericLIPID [id number] 05:59:00 Test Item Value Reference Range Interpretation Comments TRIGLYCERIDES (BEAKER) (test code = 64 mg/dL 540) CHOLESTEROL (BEAKER) (test code = 142 mg/dL 631) HDL CHOLESTEROL (BEAKER) (test code 44 mg/dL = 976) LDL CHOLESTEROL CALCULATED (BEAKER) 85 mg/dL (test code = 633) Triglyceride Reference Range: Low Risk <150 Borderline 150-199 High Risk 200- 499 Very High Risk >=500Cholesterol Reference Range: Low Risk <200 Borderline 200-239 High Risk >240HDL Cholesterol Reference Range: Low Risk >=60 High Risk <40LDL Cholesterol Reference Range: Optimal <100 Near Optimal 100-129 Borderline 130-159 High 160-189 Very High >=190 Specimen slightly ictericHEPATIC FUNCTION [id number] 05:59:00 Test Item Value Reference Range Interpretation [...] = 41 U/L 6-55 347) Specimen slightly [id number] 05:59:00 Test Item Value Reference Range Interpretation Comments LIPASE (BEAKER) (test code = 749) 35 U/L 8-78 Specimen slightly ictericPROTHROMBIN [id number] 05:58:00 Test Item Value Reference Range Interpretation [...] is 2.5-3.5 for patients wiht mechanical heart valves.CBC W/PLT COUNT & AUTO [id number] 05:37:00 Test Item Value Reference Range Interpretation [...] 417) IMMATURE GRANULOCYTES-RELATIVE 0 % 0-1 PERCENT ([facility]) (test code = 2801) POCT-HEMOGLOBIN [id number] 06:12:00 Test Item Value Reference Range Interpretation Comments POC-HEMOGLOBIN METER 8.6 g/dL 12.0-15.0 L TESTED AT [facility] 67[address] ([facility]) (test code = [place] [id number])"
[2021-11-16] MEDS ORDERED: ONDANSETRON 4 MG/2 ML VIAL ONE (22:09)
[2021-11-16] MEDS ORDERED: NA CHLORIDE 0.9% 1,000 ML ONE (22:09)
[2021-11-16] MEDS ORDERED: FENTANYL CITR 100 MCG/2 ML ONE (22:09)
[2021-11-16 22:53] LABS: Urine Blood Negative (Negative); Urine Glucose Negative (Negative); Urine Protein Trace (Negative); Urine Specific Gravity >=1.030 (1.005-1.030)
[2021-11-16 23:10] LABS: Absolute Lymphocytes (CBC) 0.7 K/uL (0.7-4.9); Hematocrit 31.2 % (36.0-45.0); Lymphocytes % 13.8 % (15.3-44.8); MCV 83.4 fL (80-100); RBC Red Blood Cell Count 3.74 M/uL (3.86-4.86)
[2021-11-16 23:26] LABS: Albumin 2.9 g/dL (3.4-5.0); Bilirubin Total 2.1 mg/dL (0.2-1.0); Potassium 4.1 mmol/L (3.5-5.1); Protein, Total 6.3 g/dL (6.4-8.2)
[2021-11-16 23:32] LABS: Urine Bacteria <20 /HPF (<20); Urine Mucus 2+ /HPF (None Seen); Urine RBC <5 /HPF (None Seen)
[2021-11-17 00:06] LABS: Blood Morphology Comment NOT SEEN (NOT SEEN); Platelet Estimate DECR; White Blood Cell Scan OK (OK)
[2021-11-17] MEDS ORDERED: FENTANYL CITR 100 MCG/2 ML ONE (01:57)
[2021-11-17] MEDS ORDERED: ONDANSETRON 4 MG/2 ML VIAL ONE (02:09)
--- NOTE | 2021-11-17 02:51 | ER ---
Nurse's Notes [facility] Name: Zenaida Goss Age: 61 yrs Sex: Female : 1960 Arrival Date: 11/16/2021 Time: 21:35 Bed 20 Private MD: Diagnosis: Postoperative abdominal pain Presentation: 11/16 21:49 Chief complaint: Patient states: RUQ pain after polyp removal today. Coronavirus 3 screen: Vaccine status: Patient reports receiving the 2nd dose of the covid vaccine. Ebola Screen: No symptoms or risks identified at this time. Initial Sepsis Screen: Does the patient meet any 2 criteria? No. Patient's initial sepsis screen is negative. Does the patient have a suspected source of infection? No. Patient's initial sepsis screen is negative. Risk Assessment: Do you want to hurt yourself or someone else? Patient reports no desire to harm self or others. Onset of symptoms was November 16, 2021. 21:49 Method Of Arrival: Ambulatory [facility] 21:49 Acuity: TANK 3 eh3 Triage Assessment: 21:50 General: Appears distressed, uncomfortable, Behavior is cooperative, appropriate for [facility] age. Pain: Complains of pain in right upper quadrant Pain radiates to right mid back Pain currently is 10 out of 10 on a pain scale. Quality of pain is described as crampy, pressure, sharp, stabbing, Pain began 1400 today Is continuous, Alleviated by nothing. Neuro: Level of Consciousness is awake, alert, obeys commands, Oriented to person, place, time, situation. Cardiovascular: Capillary refill < 3 seconds Patient's skin is warm and dry. Respiratory: Airway is patent Respiratory effort is even, unlabored. GI: Abdomen is round non-distended, Reports upper abdominal pain, cramping. : No signs and/or symptoms were reported regarding the genitourinary system. Derm: No signs and/or symptoms reported regarding the dermatologic system. Musculoskeletal: No signs and/or symptoms reported regarding the musculoskeletal system. Historical: - Allergies: 21:50 Dilaudid; eh3 21:50 Morphine (Anaphylaxis); eh3 - Home Meds: 21:50 Furosemide Oral [Active]; Lactulose Oral once daily [Active]; Creon Oral [Active]; eh3 spironolactone 25 mg Oral tab 1 tab once daily [Active]; - PMHx: 21:50 Anemia; breast cancer; Cirrhosis; fatty liver; Heart Murmur; Pancreatitis; varices; eh3 - PSHx: 21:50 Appendectomy; Cholecystectomy; Lumpectomy of breast; Total abdominal hysterectomy; eh3 - Immunization history:: Adult Immunizations up to date. - Social history:: Smoking status: Patient denies any tobacco usage or history of. Patient/guardian denies using alcohol, street drugs. Screenin:45 Abuse screen: Denies threats or abuse. Nutritional screening: No deficits noted. ll3 Tuberculosis screening: No symptoms or risk factors identified. 11/17 03:06 Fall Risk No fall in past 12 months (0 pts). No secondary diagnosis (0 pts). IV access ll3 (20 points). Ambulatory Aid- None/Bed Rest/Nurse Assist (0 pts). Gait- Normal/Bed Rest/Wheelchair (0 pts) Mental Status- Oriented to own ability (0 pts). Total Adames Fall Scale indicates No Risk (0-24 pts). Assessment: 11/16 21:45 General: Appears uncomfortable, Behavior is calm, cooperative. Pain: Complains of pain ll3 in right upper quadrant Pain radiates to back Pain currently is 10 out of 10 on a pain scale. Pain began This afternoon after endoscopy procedure. Neuro: Level of Consciousness is awake, alert, obeys commands, Oriented to person, place, time, situation. Respiratory: Respiratory effort is even, unlabored, Respiratory pattern is regular, symmetrical. GI: Bowel sounds present X 4 quads. Abd is soft X 4 quads Abdomen is tender to palpation in right upper quadrant Reports upper abdominal pain. Derm: Skin is pink, warm \T\ dry. 22:45 Reassessment: No changes from previously documented assessment. Patient and/or family ll3 updated on plan of care and expected duration. Pain level reassessed. Patient is alert, oriented x 3, equal unlabored respirations, skin warm/dry/pink. 11/17 00:30 Reassessment: No changes from previously documented assessment. Patient and/or family ll3 updated on plan of care and expected duration. Pain level reassessed. Patient is alert, oriented x 3, equal unlabored respirations, skin warm/dry/pink. 01:44 Reassessment: No changes from previously documented assessment. Patient and/or family 3 updated on plan of care and expected duration. Pain level reassessed. Patient is alert, oriented x 3, equal unlabored respirations, skin warm/dry/pink. Vital Signs: 11/16 21:49 BP 128 / 58; Pulse 83; Resp 22; Temp 98.4(O); Pulse Ox 100% on R/A; Weight 117.93 kg; eh3 Height 5 ft. 3 in. (160.02 cm); Pain 10/10; 23:00 BP 121 / 47; Pulse 76; Resp 18; Pulse Ox 100% on R/A; ll3 11/17 00:32 BP 130 / 56; Pulse 73; Resp 20; Pulse Ox 99% on R/A; ll3 02:09 BP 155 / 76; Pulse 75; Resp 18; Pulse Ox 98% on R/A; ll3 03:07 BP 145 / 58; Pulse 73; Resp 17; Pulse Ox 100% on R/A; ll3 11/16 21:49 Body Mass Index 46.06 (117.93 kg, 160.02 cm) [facility] ED Course: 11/16 21:35 Patient arrived in ED. ja2 21:40 Katherine Fofana MD is Attending Physician. sd2 21:45 Patient has correct armband on for positive identification. Bed in low position. Call [facility] light in reach. Side rails up X 1. 21:50 Triage completed. eh3 21:50 Arm band placed on right wrist. eh3 22:00 Pt placed on continuous BP and SpO2 monitoring. Door closed. Noise minimized. Lights 3 dimmed. Warm blanket given. Pillow given. 22:38 Jocelyne Pacheco, ERIC is Primary Nurse. 3 22:40 Inserted saline lock: 20 gauge in left hand, using aseptic technique. Blood collected. eh3 22:59 Urine Microscopic Only Sent. eh3 23:12 Urine Microscopic Only Sent. 3 11/17 00:44 Missed attempt(s): 20 gauge in left antecubital area. Bleeding controlled, band aid bb applied, catheter tip intact. Inserted saline lock: 20 gauge in left forearm, using aseptic technique. 01:40 CT Abd/Pelvis - IV Contrast Only In Process Unspecified. EDMS 03:05 No provider procedures requiring assistance completed. IV discontinued, intact, ll3 bleeding controlled, No redness/swelling at site. Pressure dressing applied. Administered Medications: 11/16 22:40 Drug: fentaNYL (PF) 75 mcg Route: IVP; Site: left hand; [facility] 11/17 02:08 Follow up: Response: No adverse reaction; Marked relief of symptoms 3 11/16 22:40 Drug: Zofran (Ondansetron) 4 mg Route: IVP; Site: left hand; [facility] 11/17 02:09 Follow up: Response: No adverse reaction [facility] 11/16 22:40 Drug: NS 0.9% 1000 ml Route: IV; Rate: 1000 ml; Site: left hand; [facility] 11/17 02:08 Drug: fentaNYL (PF) 75 mcg Route: IVP; Site: left forearm; 3 03:06 Follow up: Response: No adverse reaction 3 02:08 Drug: Zofran (Ondansetron) 4 mg Route: IVP; Site: left forearm; ll3 03:06 Follow up: Response: No adverse reaction ll3 02:53 Drug: HYDROcodone-acetaminophen 5 mg-325 mg 1 tabs Route: PO; ll3 03:06 Follow up: Response: No adverse reaction ll3 Medication: 03:06 VIS not applicable for this client. ll3 Outcome: 02:50 Discharge ordered by . sd2 03:05 Discharged to home ambulatory, with family. ll3 03:05 Condition: stable 03:05 Discharge instructions given to patient, family, Instructed on discharge instructions, follow up and referral plans. medication usage, Demonstrated understanding of instructions, follow-up care, medications, Prescriptions given X 2. 03:08 Patient left the ED. ll3 Signatures: Dispatcher [employer] EDMS Jolene Braun RN RN Chante Carlisle Lynsea, RN RN ll3 Samaria Sheth RN RN 3 Katherine Fofana MD MD sd2 Corrections: (The following items were deleted from the chart) 00:32 00:31 BP 121 / 47; Pulse 76bpm; Resp 18bpm; Pulse Ox 100% RA; ll3 ll3
--- NOTE | 2021-11-17 02:52 | EDPHYS ---
Physician Documentation [facility] Name: Zenaida Goss Age: 61 yrs Sex: Female : 1960 Arrival Date: 11/16/2021 Time: 21:35 Bed 20 Private MD: ED Physician Katherine Fofana HPI: 11/16 21:55 This 61 yrs old Female presents to ER via Ambulatory with complaints of sd2 Abdominal Pain, Back Pain. 21:55 61-year-old female with a history of pancreatitis and liver cirrhosis presents with sd2 chief complaint of upper abdominal pain radiating to her back. 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 She reports they were notified of the pain and she was given fentanyl with some improvement but was told if her pain returned this evening to go to the ER. The patient reports her pain does feel like her previous bouts of pancreatitis. She denies any associated fevers but did have one episode of vomiting today. She denies any diarrhea or urinary symptoms.. Historical: - Allergies: 21:50 Dilaudid; eh3 21:50 Morphine (Anaphylaxis); eh3 - Home Meds: 21:50 Furosemide Oral [Active]; Lactulose Oral once daily [Active]; Creon Oral [Active]; eh3 spironolactone 25 mg Oral tab 1 tab once daily [Active]; - PMHx: 21:50 Anemia; breast cancer; Cirrhosis; fatty liver; Heart Murmur; Pancreatitis; varices; eh3 - PSHx: 21:50 Appendectomy; Cholecystectomy; Lumpectomy of breast; Total abdominal hysterectomy; eh3 - Immunization history:: Adult Immunizations up to date. - Social history:: Smoking status: Patient denies any tobacco usage or history of. Patient/guardian denies using alcohol, street drugs. ROS: 21:55 Constitutional: Negative for fever, chills, and weight loss, Eyes: Negative for injury, sd2 pain, redness, and discharge, Cardiovascular: Negative for chest pain, palpitations, and edema, Respiratory: Negative for shortness of breath, cough, wheezing. MS/Extremity: Negative for injury and deformity, Skin: Negative for injury, rash, and discoloration, Neuro: Negative for headache, numbness and tingling. 21:55 Abdomen/GI: Positive for abdominal pain, nausea and vomiting, Negative for diarrhea, hematemesis, black/tarry stool, rectal bleeding. 21:55 Back: Positive for radiated pain. Exam: 21:55 Constitutional: This is a well developed, well nourished patient who is awake, alert, sd2 and in no acute distress. Head/Face: Normocephalic, atraumatic. Eyes: EOMI, normal conjunctiva bilaterally Chest/axilla: Normal chest wall appearance and motion. Nontender with no deformity. Cardiovascular: Regular rate and rhythm with a normal S1 and S2. No gallops, murmurs, or rubs. 2+ distal pulses. Respiratory: Lungs have equal breath sounds bilaterally, clear to auscultation and percussion. No rales, rhonchi or wheezes noted. No increased work of breathing, no retractions or nasal flaring. Abdomen/GI: Abdomen soft, mildly distended with LUQ/RUQ/epigastric TTP with voluntary guarding. No rebound tenderness. Skin: Warm, dry with normal turgor. Normal color with no rashes, no lesions, and no evidence of cellulitis. MS/ Extremity: Pulses equal, no cyanosis. Neurovascular intact. Full, normal range of motion. Ambulatory without difficulty. Psych: Awake, alert, with orientation to person, place and time. Behavior, mood, and affect are within normal limits. Vital Signs: 21:49 BP 128 / 58; Pulse 83; Resp 22; Temp 98.4(O); Pulse Ox 100% on R/A; Weight 117.93 kg; eh3 Height 5 ft. 3 in. (160.02 cm); Pain 10/10; 23:00 BP 121 / 47; Pulse 76; Resp 18; Pulse Ox 100% on R/A; ll3 0809 00:32 BP 130 / 56; Pulse 73; Resp 20; Pulse Ox 99% on R/A; ll3 02:09 BP 155 / 76; Pulse 75; Resp 18; Pulse Ox 98% on R/A; ll3 03:07 BP 145 / 58; Pulse 73; Resp 17; Pulse Ox 100% on R/A; ll3 11/16 21:49 Body Mass Index 46.06 (117.93 kg, 160.02 cm) 3 MDM: 11/16 21:54 Patient medically screened. sd2 21:55 Differential diagnosis: Gastritis, ACS, pancreatitis, GB pathology, diverticulitis, sd2 SBO, UTI, appendicitis among others. Data reviewed: vital signs, nurses notes. 11/17 02:47 Data reviewed: lab test result(s), radiologic studies. Counseling: I had a detailed sd2 discussion with the patient and/or guardian regarding: the historical points, exam findings, and any diagnostic results supporting the discharge/admit diagnosis, lab results, radiology results, the need for outpatient follow up, to return to the emergency department if symptoms worsen or persist or if there are any questions or concerns that arise at home. Medical screen evaluation completed. EMTALA emergency medical condition absent. ED course: Labs and imaging reviewed. Labs grossly WNCL. CTAP with no acute abnormalities noted. Pt with no bleeding complications. Pain improved with treatment in ED. Suspect postoperative pain as patient had more polyps banded this time compared to any other time. She reports she also had varices but patient currently with no bleeding issues. She is comfortable with a plan for discharge home with pain control and will follow up with her GI Physician in the morning. She verbalizes understanding of discharge plan and strict return precautions.. 11/16 21:55 Order name: CBC with Diff; Complete Time: 00:10 sd2 11/16 21:55 Order name: CMP; Complete Time: 23:30 sd2 11/16 21:55 Order name: Lipase; Complete Time: 23:30 sd2 11/16 21:55 Order name: Urine Microscopic Only; Complete Time: 23:47 sd2 11/16 22:54 Order name: Urine Dipstick-Ancillary; Complete Time: 23:30 EDMS 11/16 23:13 Order name: CBC Smear Scan; Complete Time: 00:10 EDMS 11/16 21:55 Order name: Urine Dipstick-Ancillary (obtain specimen); Complete Time: 22:55 sd2 11/16 21:55 Order name: CT Abd/Pelvis - IV Contrast Only sd2 Administered Medications: 11/16 22:40 Drug: fentaNYL (PF) 75 mcg Route: IVP; Site: left hand; [facility] 11/17 02:08 Follow up: Response: No adverse reaction; Marked relief of symptoms 3 11/16 22:40 Drug: Zofran (Ondansetron) 4 mg Route: IVP; Site: left hand; [facility] 11/17 02:09 Follow up: Response: No adverse reaction 3 11/16 22:40 Drug: NS 0.9% 1000 ml Route: IV; Rate: 1000 ml; Site: left hand; 3 11/17 02:08 Drug: fentaNYL (PF) 75 mcg Route: IVP; Site: left forearm; ll3 03:06 Follow up: Response: No adverse reaction ll3 02:08 Drug: Zofran (Ondansetron) 4 mg Route: IVP; Site: left forearm; ll3 03:06 Follow up: Response: No adverse reaction ll3 02:53 Drug: HYDROcodone-acetaminophen 5 mg-325 mg 1 tabs Route: PO; ll3 03:06 Follow up: Response: No adverse reaction ll3 Disposition Summary: 11/17/21 02:50 Discharge Ordered Location: Home sd2 Problem: new sd2 Symptoms: have improved sd2 Condition: Stable sd2 Diagnosis - Postoperative abdominal pain sd2 Followup: sd2 - With: Private Physician - When: 1 - 2 days - Reason: Recheck today's complaints, Continuance of care, Re-evaluation by your physician Followup: sd2 - With: Emergency Department - When: As needed - Reason: Discharge Instructions: - Discharge Summary Sheet sd2 - Abdominal Pain, Adult sd2 Forms: - Medication Reconciliation Form sd2 - Thank You Letter sd2 - Antibiotic Education sd2 - Prescription Opioid Use sd2 Prescriptions: - Tramadol 50 mg Oral Tablet - take 1 tablet by ORAL route every 6 hours as needed; 12 tablet; Refills: 0, sd2 Product Selection Permitted - ondansetron 8 mg Oral tablet,disintegrating - take 1 tablet by ORAL route every 8 hours as needed for nausea; 15 tablet; sd2 Refills: 0, Product Selection Permitted Signatures: Dispatcher [employer] Jocelyne Chisholm RN RN 3 Samaria Sheth RN RN 3 Katherine Fofaan MD MD sd2
[2021-11-17] MEDS ORDERED: HYDROCODONE/APAP 5/325 MG TAB ONE (02:59)
[2021-11-17 05:56] VITALS: TEMP 98.4
[2021-11-17 06:09] VITALS: BP 145/58; O2SAT 100
--- NOTE | 2021-11-17 13:09 | RAD REPORT ---
EXAM DESCRIPTION: CT - Abdomen Pelvis W Contrast - 11/17/2021 4:21 am CLINICAL HISTORY: Upper abdominal pain s/p EGD today TECHNIQUE: Axial computed tomography images of the abdomen and pelvis with intravenous contrast. S agittal and coronal reformatted images were created and reviewed. This CT exam was performed using one or more of the following dose reduction techniques: automated exposure control, adjustment of t he mA and/or kV according to patient size, and/or use of iterative reconstruction technique. COMPARISON: CT Abdomen Pelvis dated 01/26/2021 FINDINGS: Lung bases: Mild mosaic attenuation at the lung bases bilaterally. ABDOMEN: Liver: The liver demonstrates diffuse surface contour nodularity. Gallbladder and bile ducts: Prior cholecystectomy. No ductal dilation. Pancreas: Unremarkable. No mass. No ductal dilation. Spleen: The spleen is enlarged measuring 19.4 cm in craniocaudal dimension. Adrenals: Unremarkable. No mass. Kidneys and ureters: Subcentimeter right renal cortical hypodensity which is too small to character ize. No follow-up imaging is necessary. Small calculus at the lower pole collecting system of the rig ht kidney. No hydronephrosis. Stomach and bowel: Intramural fat within portions of the large bowel which can be seen in the setti ng of prior inflammation. No mucosal thickening. PELVIS: Appendix: The appendix is not definitively visualized. No findings to suggest acute appendicitis. Bladder: Unremarkable. No mass. Reproductive: Unremarkable as visualized. ABDOMEN and PELVIS: Intraperitoneal space: Trace free fluid in the pelvis. No free air. Bones/joints: Multilevel spondylosis. No acute fracture. No dislocation. Soft tissues: Unremarkable. Vasculature: The main portal, splenic and superior mesenteric veins are patent. Stable 3.4 cm perip herally calcified splenic artery aneurysm. Minimal atherosclerotic disease. Lymph nodes: Unremarkable. No enlarged lymph nodes. IMPRESSION: 1. No acute abnormality identified within the abdomen and pelvis. 2. Hepatic cirrhosis and sequela of portal hypertension. 3. Other findings as above. Electronically signed by: Uma Dutton MD 11/17/2021 2:37 AM CDT Due to temporary technical issues with the PACS/Fluency reporting system, reports are being signed by the in house radiologists without review as a courtesy to insure prompt reporting. The interpreting radiologist is fully responsible for the content of the report.
== END 2021-11-17 03:08 | disposition home or self-care (01) ==
LOC: ER 21:33
DX: G89.18 Other acute postprocedural pain (principal); Z98.890 Other specified postprocedural states; K76.0 Fatty (change of) liver, not elsewhere classified; Z88.5 Allergy status to narcotic agent; Z85.3 Personal history of malignant neoplasm of breast
CPT/HCPCS: 85025; 36415; 83690; 80053; 74177; Q9967; J3010 ×2; J7030; J2405 ×2; 81003; 81015

== ENCOUNTER 2021-11-25 20:55 | Emergency (ER) | payer OTHER ==
--- OUTSIDE RECORDS SUMMARY | 2021-11-25 21:04 | XMS REPORT | Continuity of Care Document ---
:1960 Author Organization [facility] t Address [address] [place] [address] [address] [place] [address] Care Team Providers Name Role Phone MADHU HERNANDEZ Primary Care Physician Unavailable Madhu Hernandez Attending Clinician Unavailable Annalise Souza Attending Clinician Unavailable RAFAEL GUERRERO Attending Clinician Unavailable MD VIKTOR BILLINGS Attending Clinician Unavailable Sukhdev KOENIG Attending Clinician Unavailable Sukhdev Fajardo Attending Clinician Doctor Unassigned, [place] Attending Clinician Unavailable [facility] Attending [...] Unavailable VIKTOR BILLINGS Admitting Clinician Unavailable Sukhdev KONEIG Admitting Clinician Unavailable AZALEA GREEN Admitting Clinician [...] Type Policy Number Effective Date Expiration Date [facility] [id number] 2019 CHOICE 00:00:00 Problems Condition Condition Condition Status Onset Resolution Last Treating Co mments Source Name Details Category Date Date Treatment Clinician Date Pancolitis Pancolitis Disease Active U nivers 6-21 ity of 00:00: [place] 00 [facility] Branch Arrhythmia Arrhythmia Disease Active U nivers 6-21 ity of 00:00: [place] [address] Medical Branch Ventricula Ventricula Disease Active U nivers r r 6-21 [place]y of tachycardi [place]cardi [place] Other Other Disease Active Univers cirrhosis cirrhosis 6-21 ity of of liver of liver 00:00: [place] 00 Medical Branch ANAYA ANAYA Disease Active [...] of - [facility] right knee right knee [facility] Primary Primary Diagnosis Active 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 of itis of - [facility] left knee left knee [facility] Allergies, Adverse Reactions, Alerts Allergy Allergy [...] Active Info Not Commo n Reaction Available [facility] Social History Social Habit Start Date Stop Date Quantity Comments Source Exposure to 2021-09-18 2021-09-28 Not sure [facility] SARS-CoV-2 00:00:00 21:57:00 [facility] (event) [place] Alcohol intake 2021-04-02 2021-04-02 Ex-drinker [facility] 00:00:00 00:00:00 (finding) [facility] Tobacco use and 2016-08-07 2016-08-07 Never used Universit y of exposure 00:00:00 00:00:00 [facility] Sex [birth year] At [birth year] Universit y of 00:00:00 00:00:00 [facility] Smoking Status Start Date Stop Date Source Never smoker [facility] Medications Ordered Filled Start Stop Current Ordering [...] Branch 09/29/21 at 0100, Routine naproxen Yes [id number] 500mg Take 1 Univers (NAPROSYN) 09-28 9104 [...] 04/02/21 at 1445, VERN ondansetron 2020-04 Yes [id number] 4mg Take 1 Univers 4 mg 2-23 tablet by ity of disintegrat 00:00: mouth [place] ing tablet 00 every 8 Medica l (eight) Branch hours as needed for Nausea and Vomiting (N/V). ondansetron 2020-04 Yes [id number] 4mg Take 1 Univers 4 mg 2-23 tablet by ity of disintegrat 00:00: mouth [place] ing tablet 00 every 8 Medica l (eight) Branch hours as needed for Nausea and Vomiting (N/V). ondansetron 2020-04 Yes [id number] 4mg Take 1 Univers 4 mg 2-23 tablet by ity of disintegrat 00:00: mouth [place] ing tablet 00 every 8 Medica l (eight) Branch hours as needed for Nausea and Vomiting (N/V). ondansetron 2020-04 Yes [id number] 4mg Take 1 Univers 4 mg 2-23 tablet by ity of disintegrat 00:00: mouth [place] ing tablet 00 every 8 Medica l (eight) Branch hours as needed for Nausea and Vomiting (N/V). cholecalcif 2020- No [id number] 1999U Take 2 Univers nuno, 6-26 07-27 tablets by ity of vitamin D3, 00:00: 04:59 [place] 25 mcg 00 :00 daily for Medical (1,000 30 days. Branch unit) tablet cyanocobala 2020- No [id number] 1000ug inject 1 Univers min 1,000 6-26 07-27 mL under ity o f mcg/mL 00:00: 04:59 the skin [place] injection 00 :00 every 24 Medica l (twenty-fo Branch ur) hours for 30 days. KCL 20 mEq 2020- No [id number] 20meq Take 1 Univers tablet 6-26 07-27 tablet by ity of 00:00: 04:59 mouth [place] 00 :00 daily for Medical 30 days. Branch cholecalcif 2020- No [id number] 1999U Take 2 Univers nuno, 6-26 07-27 tablets by ity of vitamin D3, 00:00: 04:59 [place] 25 mcg 00 :00 daily for Medical (1,000 30 days. Branch unit) tablet cyanocobala 2020- No [id number] 1000ug inject 1 Univers min 1,000 6-26 07-27 mL under ity o f mcg/mL 00:00: 04:59 the skin [place] injection 00 :00 every 24 Medica l (twenty-fo Branch ur) hours for 30 days. KCL 20 mEq 2020- No [id number] 20meq Take 1 Univers tablet 6-26 07-27 [...] ve to Ondansetro n proMETHazin 2020-0 Yes [id number] 12.5mg Take 1 Univers e 12.5 mg 6-25 tablet by ity o f tablet 00:00: mouth [place] 00 every 6 Medical (six) Branch hours as needed for Nausea and Vomiting (N/V) or N/V unresponsi ve to Ondansetro n. proMETHazin 2020-0 Yes [id number] 12.5mg Take 1 Univers e 12.5 mg 6-25 tablet by ity o f tablet 00:00: mouth [place] 00 every 6 Medical (six) Branch hours as needed for Nausea and Vomiting (N/V) or N/V unresponsi ve to Ondansetro n. proMETHazin Yes [id number] 12.5mg Take 1 Univers e 12.5 mg 6-25 tablet by ity o f tablet 00:00: mouth [place] 00 every 6 Medical (six) Branch hours as needed for Nausea and Vomiting (N/V) or N/V unresponsi ve to Ondansetro n. proMETHazin 0 Yes [id number] 12.5mg Take 1 Univers e 12.5 mg 6-25 tablet by ity o f tablet 00:00: mouth [place] 00 every 6 Medical (six) Branch hours as needed for Nausea and Vomiting (N/V) or N/V unresponsi ve to Ondansetro n. proMETHazin 2020-0 Yes [id number] 12.5mg Take 1 Univers e 12.5 mg 6-25 tablet by ity o f tablet 00:00: mouth [place] 00 every 6 Medical (six) Branch hours as needed for Nausea and Vomiting (N/V) or N/V unresponsi ve to Ondansetro n. proMETHazin 2020-0 Yes [id number] 12.5mg Take 1 Univers e 12.5 mg 6-25 tablet by ity o f tablet 00:00: mouth [place] 00 every 6 Medical (six) Branch hours as needed for Nausea and Vomiting (N/V) or N/V unresponsi ve to Ondansetro n. proMETHazin Yes [id number] 12.5mg Take 1 Univers e 12.5 mg 6-25 tablet by ity o f tablet 00:00: mouth [place] 00 every 6 Medical (six) Branch hours as needed for Nausea and Vomiting (N/V) or N/V unresponsi ve to Ondansetro n. proMETHazin Yes [id number] 12.5mg Take 1 Univers e 12.5 mg 6-25 tablet by ity o f tablet 00:00: mouth [place] 00 every 6 Medical (six) Branch hours as needed for Nausea and Vomiting (N/V) or N/V unresponsi ve to Ondansetro n. proMETHazin Yes [id number] 12.5mg Take 1 Univers e 12.5 mg 6-25 tablet by ity o f tablet 00:00: mouth [place] 00 every 6 Medical (six) Branch hours as needed for Nausea and Vomiting (N/V) or N/V unresponsi ve to Ondansetro n. furosemide 2020- No [id number] 40mg Take 1 Univers 40 mg 6-25 07-26 tablet by ity of tablet 00:00: 04:59 mouth [place] 00 :00 every Medical morning Branch and evening for 30 days. lipase-prot 2020- No [id number] 2{capsu Take 2 Univers ease-amylas 6-25 07-26 le} capsules ity of e 00:00: 04:59 by mouth 3 [place] 12,000-38,0 00 :00 (three) Medic al 00 -60,000 times Branch unit daily with capsule meals for 30 days. lactobacill 2020- No [id number] .5mg Take 1 Univers us 6-25 07-26 tablet by ity of acidophilus 00:00: 04:59 mouth 2 [place] 00 :00 (two) Medical times Branch daily for 30 days. furosemide 2020- No [id number] 40mg Take 1 Univers 40 mg 6-25 07-26 tablet by ity of tablet 00:00: 04:59 mouth [place] 00 :00 every Medical morning Branch and evening for 30 days. lipase-prot 2020- No [id number] 2{capsu Take 2 Univers ease-amylas 6-25 07-26 le} capsules ity of e 00:00: 04:59 by mouth 3 [place] 12,000-38,0 00 :00 (three) Medic al 00 -60,000 times Branch unit daily with capsule meals for 30 days. lactobacill 2020- No [id number] .5mg Take 1 Univers us 6-25 07-26 tablet by ity of acidophilus 00:00: 04:59 mouth 2 [place] 00 :00 (two) Medical times Branch daily for 30 days. vancomycin 2020- No [id number] 125mg Take 1 Univers 125 mg 6-25 07-06 capsule by ity of capsule 00:00: 04:59 mouth 4 [place] 00 :00 (four) Medical times Branch daily for 10 days. vancomycin 2020- No [id number] 125mg Take 1 Univers 125 mg 6-25 07-06 capsule by ity of capsule 00:00: 04:59 mouth 4 [place] 00 :00 (four) Medical times Branch daily [...] Indication s: acute pain cephALEXin 2020- No [id number] 500mg Take 1 Univers 500 mg 6-25 07-01 capsule by ity of capsule 00:00: 04:59 mouth 4 [place] 00 :00 (four) Medical times Branch daily for 5 days. cephALEXin 2020- No [id number] 500mg Take 1 Univers 500 mg 6-25 07-01 capsule by ity of capsule 00:00: 04:59 mouth 4 [place] 00 :00 (four) Medical times [place] daily for 5 days. meperidine Yes 25mg [...] 21:15: First dose [place] mg 00 on [facility] 09/30/20 at Branch 1615, Until [...] at 1615, Routine cholecalcif Yes 2000U 2,000 [facility] ers nuno 6- Units, ity of (vitamin [...] TID ity of e (CREON) 08:45: MEALS, [place] 12,000-38,0 00 First dose Me dical 00 -60,000 on Tue Branch unit 09/29/20 at capsule 2 0345, capsule Until Discontinu ed, Routine FENTanyl PF 2020- No 50ug 50 mcg, Un marline (SUBLIMAZE 09-29 Slow IV ity o f (PF)) 08:40: 17:13 Push, [place] injection 42 :17 Q4HPRN, Medical 50 mcg [...] injection 4 17 Starting Medi molly mg [facility] 09/29/20 at 0142, Until Discontinu ed, Routine, Nausea and Vomiting (N/V) iopamidol 2020- No [id number] 100mL 100 mL, Univers (ISOVUE 09-29 Intravenou ity o f 370-500 mL) 06:00: 04:53 s, ONCE, 1 [place] injection 00 :00 dose, Mon Medic al 100 mL 09/29/20 at Branch 0100, Routine KCL No 40meq 40 mEq, Univers (KLOR-CON 09-29 Oral, ity of M20) tablet 05:45: 05:15 ONCE, 1 [place] 40 mEq 00 :00 dose, [facility] Medical 09/29/20 at Branch 0045, Routine ondansetron 2020- No 4mg 4 mg, Slow Univers (ZOFRAN 09-29 IV Push, ity of (PF)) 05:45: 05:14 ONCE, 1 [place] injection 4 00 :00 dose, Mon Med ical mg 09/29/20 at Branch 0045, VERN FENTanyl PF No 50ug 50 mcg, Un marlien (SUBLIMAZE 09-29 Slow IV ity o f (PF)) 05:45: 05:14 Push, [place] injection 00 :00 ONCE, 1 Medical 50 mcg dose, [facility] 09/29/20 at 0045, Routine NaCl 0.9% No 1000mL at 999 Uni vers (NS) IV 09-29 mL/hr, ity of infusion 05:45: 06:38 Intravenou [place] 1,000 mL 00 :45 s, Medical CONTINUOUS Branch , Starting 09/29/20 at 0045, Until 09/29/20 at 0138, Routine Meloxicam Meloxicam 2019- 2020- No Gm 1 tablet Common 09-17 [facility] 00:00: 00:00 - [facility] 00 :00 [facility] flu vaccine 2020- No .5mL 0.5 [...] for Pain (scale 4-6). acetaminoph 2020-0 Yes [id number] 1{tbl} Take 1 Univers en-codeine 5-02 tablet by ity of 300-30 mg 00:00: mouth [place] tablet 00 every 4 Medical (four) Branch hours as needed for Pain (scale 4-6). acetaminoph 2020-0 Yes [id number] 1{tbl} Take 1 Univers en-codeine 5-02 tablet by ity of 300-30 mg 00:00: mouth [place] tablet 00 every 4 Medical (four) Branch hours as needed for Pain (scale 4-6). lactulose 2020-0 2020- No [id number] 30mL Take 30 mL Univers 10 gram/15 5- 06-02 by mouth 2 it y of mL oral 00:00: 04:59 (two) [place] solution 00 :00 times Medical daily for Branch 30 days. pantoprazol 2020-0 2020- No [id number] 40mg Take 1 Univers e 40 mg EC 5-02 06-02 tablet by ity of tablet 00:00: 04:59 mouth [place] 00 :00 daily for Medical 30 days. Branch lactulose 2020-0 2020- No [id number] 30mL Take 30 mL Univers 10 gram/15 5-02 06-02 by mouth 2 it y of mL oral 00:00: 04:59 (two) [place] solution 00 :00 times Medical daily for Branch 30 days. pantoprazol 2020-0 2020- No [id number] 40mg Take 1 Univers e 40 mg EC 5-02 06-02 tablet by ity of tablet 00:00: 04:59 mouth [place] 00 :00 daily for Medical 30 days. Branch propranolol 2019-0 2020- No [id number] 10mg Take 1 Univers 10 mg 5-02 [...] Slow IV ity of (PF)) 09:22: Push, [place] injection 46 Q4HPRN, Medical 50 mcg Starting [...] e Sodium e Sodium Singh defined [facility] Acetaminoph Acetaminoph Yes Gm not Common en-Codeine en-Codeine Singh defined [facility] #3 #3 [facility] Oseltamivir Oseltamivir Yes Gm not Common Phosphate Phosphate Singh defined Sp cleopatra [facility] Levofloxaci Levofloxaci Yes Gm not Common n n Singh defined [facility] Xifaxan Xifaxan Yes Gm not Common Singh defined [facility] Lactulose Lactulose Yes Gm not Co mmon Singh defined [facility] Albuterol Albuterol Yes Gm not Co mmon Sulfate HFA Sulfate HFA Singh defined [facility] Azithromyci Azithromyci Yes Gm not Common n n Singh defined [facility] Amoxicillin Amoxicillin Yes Gm not Common -Pot -Pot Singh defined [facility] Clavulanate Clavulanate [facility] Immunizations Ordered Filled Immunization Date Status [...] Completed Unive rsity of MODERNA VACCINE 00:00:00 [facility] ica Branch SARS-COV-2 COVID-19 2020-08-08 Completed Unive rsity of MODERNA VACCINE 00:00:00 [facility] ica Branch SARS-COV-2 COVID-19 2020-08-08 Completed Unive rsity of MODERNA VACCINE 00:00:00 [facility] ica Branch SARS-COV-2 COVID-19 2020-08-08 Completed Unive rsity of MODERNA VACCINE 00:00:00 [facility] ica Branch SARS-COV-2 COVID-19 2020-08-08 Completed Unive rsity of MODERNA VACCINE 00:00:00 [facility] ica Branch SARS-COV-2 COVID-19 2020-08-08 Completed Unive rsity of MODERNA VACCINE 00:00:00 [facility] ica Branch SARS-COV-2 COVID-19 2020-08-08 Completed Unive rsity of MODERNA VACCINE 00:00:00 [facility] Branch SARS-COV-2 COVID-19 2020-08-08 Completed Unive rsity of MODERNA VACCINE 00:00:00 [facility] ical Branch SARS-COV-2 COVID-19 2020-08-08 Completed Unive rsity of MODERNA VACCINE 00:00:00 [facility] ical Branch SARS-COV-2 COVID-19 2020-08-08 Completed Unive rsity of MODERNA VACCINE 00:00:00 [facility] SARS-COV-2 COVID-19 2020-07-11 Completed Unive rsity of MODERNA VACCINE 00:00:00 [facility] SARS-COV-2 COVID-19 2020-07-11 Completed Unive rsity of MODERNA VACCINE 00:00:00 [facility] SARS-COV-2 COVID-19 2020-07-11 Completed Unive rsity of MODERNA VACCINE 00:00:00 [facility] SARS-COV-2 COVID-19 2020-07-11 Completed Unive rsity of MODERNA VACCINE 00:00:00 [facility] SARS-COV-2 COVID-19 2020-07-11 Completed Unive rsity of MODERNA VACCINE 00:00:00 [facility] SARS-COV-2 COVID-19 2020-07-11 Completed Unive rsity of MODERNA VACCINE 00:00:00 [facility] SARS-COV-2 COVID-19 2020-07-11 Completed Unive rsity of MODERNA VACCINE 00:00:00 [facility] SARS-COV-2 COVID-19 2020-07-11 Completed Unive rsity of MODERNA VACCINE 00:00:00 [facility] SARS-COV-2 COVID-19 2020-07-11 Completed Unive rsity of MODERNA VACCINE 00:00:00 [facility] SARS-COV-2 COVID-19 2020-07-11 Completed Unive rsity of MODERNA VACCINE 00:00:00 [facility] Influenza Virus 2019-08-11 Completed Universit y of Vaccine Quad .5 mL 00:00:00 [facility] IM 6+ MO Branch Influenza Virus 2019-08-11 Completed Universit y of Vaccine [place] .5 mL 00:00:00 [facility] IM 6+ MO Branch Influenza Virus 2019-08-11 Completed Universit y of Vaccine [place] .5 mL 00:00:00 [place] Medical IM 6+ MO Branch Influenza Virus 2019-08-11 Completed Universit y of Vaccine [place] .5 mL 00:00:00 [place] Medical IM 6+ MO Branch Influenza Virus 2019-08-11 Completed Universit y of Vaccine [place] .5 mL 00:00:00 [facility] IM 6+ MO Branch Influenza Virus 2019-08-11 Completed Universit y of Vaccine [place] .5 mL 00:00:00 [facility] 6+ MO Branch Influenza Virus 2019-08-11 Completed Universit y of Vaccine [place] .5 mL 00:00:00 [facility] 6+ MO Branch Influenza Virus 2019-08-11 Completed Universit y of Vaccine [place] .5 mL 00:00:00 [facility] 6+ MO Branch Influenza Virus 2019-08-11 Completed Universit y of Vaccine [place] .5 mL 00:00:00 [facility] 6+ MO Branch Influenza Virus 2019-08-11 Completed Universit y of Vaccine [place] .5 mL 00:00:00 [facility] 6+ MO Branch Influenza Virus 2019-08-11 Completed Universit y of Vaccine [place] .5 mL 00:00:00 [facility] 6+ MO Branch Influenza Virus 2019-08-11 Completed Universit y of Vaccine [place] .5 mL 00:00:00 [facility] 6+ MO Branch Influenza Virus 2019-08-11 Completed Universit y of Vaccine [place] .5 mL 00:00:00 [facility] 6+ MO Branch Vital Signs Vital Name Observation Time Observation Value Comments Source Systolic blood 2021-09-29 03:00:00 126 mm[Hg] Univer sity of pressure [facility] Diastolic blood 2021-09-29 03:00:00 57 mm[Hg] Unive rsity of pressure [facility] Heart rate 2021-09-29 03:00:00 78 /min [facility] Body temperature 2021-09-29 03:00:00 37.28 Sand[place] [facility] Respiratory rate 2021-09-29 03:00:00 16 /min [facility] Body height 2021-09-29 03:00:00 162.6 cm [facility] Body weight 2021-09-29 03:00:00 117.935 kg [facility] BMI 2021-09-29 03:00:00 44.63 kg/m2 Universi ty of [place] [facility] Oxygen saturation in 2021-09-29 03:00:00 97 /min University of Arterial blood by [facility] Pulse oximetry Branch Systolic blood 2021-04-02 18:55:00 138 mm[Hg] Univer sity of pressure [place] [facility] Diastolic blood 2021-04-02 18:55:00 104 mm[Hg] Unive rsity of pressure [place] [facility] Heart rate 2021-04-02 18:55:00 74 /min Universi ty of [place] [facility] Body temperature 2021-04-02 18:55:00 36.78 Sandee Univ ersity of [place] [facility] Respiratory rate 2021-04-02 18:55:00 18 /min Univ ersity of [place] [facility] Body weight 2021-04-02 18:55:00 122.471 kg Universi ty of [place] [facility] BMI 2021-04-02 18:55:00 46.35 kg/m2 Universi ty of [place] [facility] Oxygen saturation in 2021-04-02 18:55:00 97 /min University of Arterial blood by [facility] Pulse oximetry Branch Systolic blood 2020-10-03 17:23:00 132 mm[Hg] Univer sity of pressure [place] [facility] Diastolic blood 2020-10-03 17:23:00 56 mm[Hg] Unive rsity of pressure [place] [facility] Heart rate 2020-10-03 17:23:00 88 /min Universi ty of [place] [facility] Body temperature 2020-10-03 17:23:00 36.94 Sandee Univ ersity of [place] [facility] Respiratory rate 2020-10-03 17:23:00 18 /min Univ ersity of [place] [facility] Oxygen saturation in 2020-10-03 17:23:00 94 /min University of Arterial blood by [facility] Pulse oximetry Branch Body weight 2020-09-30 08:11:00 121.473 kg Universi ty of [place] [facility] BMI 2020-09-30 08:11:00 47.44 kg/m2 Universi ty of [place] [facility] Body height 2020-09-29 03:33:00 160 cm Universi ty of [place] [facility] Diastolic blood 2019-08-11 20:04:00 44 mm[Hg] Unive rsity of pressure [place] [facility] Heart rate 2019-08-11 20:04:00 70 /min Universi ty of [facility] Body temperature 2019-08-11 20:04:00 36.61 Sandee Univ ersity of [facility] Branch Respiratory rate 2019-08-11 20:04:00 18 /min Univ ersity of [facility] Branch Oxygen saturation in 2019-08-11 20:04:00 91 /min University of Arterial blood by [facility] Pulse oximetry Branch Systolic blood 2019-08-11 20:04:00 107 mm[Hg] Univer sity of pressure [facility] Body height 2019-08-10 08:01:00 162.6 cm Universi ty of [place] [facility] [place] Body weight 2019-08-10 08:01:00 119.296 kg Universi ty of [place] [facility] BMI 2019-08-10 08:01:00 45.14 kg/m2 Universi ty of [place] [facility] Diastolic blood 2019-08-11 20:04:00 44 mm[Hg] Unive rsity of [facility] Heart rate 2019-08-11 20:04:00 70 /min Universi ty of [place] [facility] [place] Body temperature 2019-08-11 20:04:00 36.61 Sandee Univ ersity of [facility] Branch Respiratory rate 2019-08-11 20:04:00 18 /min Univ ersity of [facility] Branch Oxygen saturation in 2019-08-11 20:04:00 91 /min University of Arterial blood by [facility] Pulse oximetry Branch Systolic blood 2019-08-11 20:04:00 107 mm[Hg] Univer sity of [facility] Body height 2019-08-10 08:01:00 162.6 cm Universi ty of [place] [facility] [place] Body weight 2019-08-10 08:01:00 119.296 kg Universi ty of [place] [facility] BMI 2019-08-10 08:01:00 45.14 kg/m2 Universi ty [facility] Branch Procedures Procedure Date / Time Performing Clinician Source Performed XR KNEE 3 VW RIGHT 2021-09-29 04:06:00 Sukhdev Koenig [facility] NOTICE OF PRIVACY 2021-09-29 02:46:43 Doctor Unassigned, [facility] PRACTICES [place] [facility] CONSENT/REFUSAL FOR 2021-09-29 02:46:16 Doctor Unassigned, Unive rsity of [place] DIAGNOSIS AND TREATMENT [place] [facility] XR KNEE 3 VW LEFT 2021-04-02 20:10:39 Azalea [facility] CONSENT/REFUSAL FOR 2021-04-02 17:59:31 Doctor Unassigned, [facility] DIAGNOSIS AND TREATMENT [place] [facility] ASSIGNMENT OF BENEFITS 2021-03-10 20:29:46 Doctor Unassigned, Un [facility] [place] [facility] PHOSPHORUS 2020-10-03 08:52:00 Kim Teixeiraherine [facility] MAGNESIUM 2020-10-03 08:52:00 Puneet [facility] COMP. METABOLIC PANEL 2020-10-03 08:52:00 Puneet [facility] ([id number]) [facility] CBC WITH DIFF 2020-10-03 08:52:00 Puneet [facility] COMP. METABOLIC PANEL 2020-10-02 08:39:00 Kmi Teixeiraherine [facility] ([id number]) [facility] CBC WITH DIFF 2020-10-02 08:39:00 [facility] LEFT 2020-10-01 16:22:58 Brenda Teixeira [facility] - BY VASCULAR LAB [facility] Branch COMP. METABOLIC PANEL 2020-10-01 07:45:00 Alka Tomasa [facility] ([id number]) [facility] CBC WITH DIFF 2020-10-01 07:45:00 Alka Tomasa [facility] TROPONIN I 2020-09-30 10:56:00 Marco Levy [facility] COMP. METABOLIC PANEL 2020-09-30 10:56:00 Shaina Brito [facility] ([id number]) [facility] CBC WITH DIFF 2020-09-30 10:56:00 Shaina Brito [facility] N-TERMINAL PRO-BNP 2020-09-30 08:05:00 Shaina Brito [facility] OCCULT (GUAIAC) BLOOD 2020-09-30 02:10:00 Shaina Brito [facility] FECAL LEUKOCYTES 2020-09-30 02:10:00 Millie sharad [facility] CLOSTRIDIUM DIFFICILE 2020-09-30 02:10:00 Millie sharad [facility] FECAL PATHOGENS BY PCR 2020-09-30 02:10:00 Shaina Brito [facility] POCT GLUCOSE (AUTOMATED) 2020-09-30 00:35:00 Rene Evans [facility] BASIC METABOLIC PANEL 2020-09-29 21:11:00 Shaina Brito [facility] (NA, K, CL, CO2, GLUCOSE, Medica l Branch BUN, CREATININE, CA) HEMOGLOBIN 2020-09-29 21:11:00 Alka Tomasa [facility] TRANSTHORACIC ECHO (TTE) 2020-09-29 16:03:00 aMrco Levy [facility] HB ECG ROUTINE & RHYTHM 2020-09-29 11:18:58 Shaina Brito [facility] OSMOLALITY URINE 2020-09-29 08:56:00 Millie [facility] URINE CULTURE 2020-09-29 08:56:00 Millie [facility] SODIUM, URINE RANDOM 2020-09-29 08:56:00 Millie sharad [facility] PROTEIN CREAT RATIO URINE 2020-09-29 08:56:00 Shaina Brito [facility] BLOOD CULTURE SCREEN 2020-09-29 08:32:00 Shaina Brito [facility] LACTIC ACID WHOLE BLOOD 2020-09-29 08:32:00 Millie sharad [facility] VITAMIN B12, LEVEL 2020-09-29 08:31:00 Shaina Brito [facility] C-REACTIVE PROTEIN 2020-09-29 08:31:00 Shaina Brito [facility] IRON PANEL 2020-09-29 08:31:00 Millie Adnan [facility] SEDIMENTATION RATE 2020-09-29 08:31:00 Millie sharad [facility] DIFF CONSULT 2020-09-29 08:31:00 Millie [facility] CBC WITH DIFF 2020-09-29 08:31:00 Millie [facility] PROTHROMBIN TIME / INR 2020-09-29 08:31:00 Shaina [facility] N-TERMINAL PRO-BNP 2020-09-29 08:31:00 Millie sharad [facility] VITAMIN D, 25-OH 2020-09-29 08:31:00 Millie [facility] PROCALCITONIN 2020-09-29 08:31:00 Millie [facility] COVID-19 (ID NOW RAPID 2020-09-29 05:10:00 Rene Evans [facility] TESTING) Medical Branch LAB ONLY COVID 2020-09-29 05:10:00 Rene Evans [facility] INTERPRETATION [facility] CT ABDOMEN PELVIS W 2020-09-29 04:56:31 Rene Evans [facility] CONTRAST [facility] Branch URINALYSIS 2020-09-29 04:19:00 Rene Evans [facility] PHOSPHORUS 2020-09-29 03:54:00 Millie [facility] CREATINE KINASE 2020-09-29 03:54:00 Millie [facility] URIC ACID 2020-09-29 03:54:00 Millie [facility] LIPASE 2020-09-29 03:54:00 Rene Evans [facility] MAGNESIUM 2020-09-29 03:54:00 Millie [facility] FERRITIN SERUM 2020-09-29 03:54:00 Millie [facility] TROPONIN I 2020-09-29 03:54:00 Marco Levy [facility] THYROID STIMULATING 2020-09-29 03:54:[address] [facility] HORMONE [facility] Branch COMP. METABOLIC PANEL 2020-09-29 03:54:00 Rene Evans [facility] ([id number]) Medical [place] LIPID PANEL (66710)(TOTAL 2020-09-29 03:54:00 Shaina Brito [facility] CHOLESTEROL, [facility] TRIGLYCERIDES, HDL) CBC WITH DIFF 2020-09-29 03:54:00 Rene Evans [facility] GLYCOSYLATED HEMOGLOBIN 2020-09-29 03:54:00 Millie [facility] (A1C) [facility] N-TERMINAL PRO-BNP 2020-09-29 03:54:00 Shaina Brito [facility] CONSENT/REFUSAL FOR 2020-09-29 03:18:51 Doctor Unassigned, [facility] DIAGNOSIS AND TREATMENT [place] [facility] NOTICE OF PRIVACY 2020-09-29 03:18:30 Doctor Unassigned, [facility] PRACTICES [place] Medical [place] CT ABDOMEN PELVIS W 2019-08-11 14:50:[address] [facility] CONTRAST [facility] COMP. METABOLIC PANEL 2019-08-11 08:00:00 Shaina Brito [facility] ([id number]) [facility] CBC WITH DIFFERENTIAL 2019-08-11 08:00:00 Millie sharad [facility] CBC WITH DIFFERENTIAL 2019-08-11 08:00:00 Shaina [facility]o [facility] XR SMALL BOWEL SERIES 2019-08-10 21:18:47 Valente Piña [facility] XR ABDOMEN 1 VW 2019-08-10 11:52:39 Millie [facility] PHOSPHORUS 2019-08-10 11:11:00 Millie [facility] CREATINE KINASE 2019-08-10 11:11:00 Millie [facility] AMYLASE 2019-08-10 11:11:00 Millie [facility] LIPASE 2019-08-10 11:11:00 Millie [facility] MAGNESIUM 2019-08-10 11:11:00 Shaina Brito [facility] TEST, SERUM 2019-08-10 11:11:00 Shaina Brito [facility] acute hospital THYROID STIMULATING 2019-08-10 11:11:00 [facility] COMP. METABOLIC PANEL 2019-08-10 11:11:00 Shaina Brito [facility] ([id number]) [facility] LIPID PANEL (61775)(TOTAL 2019-08-10 11:11:00 Shaina Brito [facility] CHOLESTEROL, [facility] TRIGLYCERIDES, HDL) SEDIMENTATION RATE 2019-08-10 11:11:00 Shaina Brito [facility] CBC WITH DIFFERENTIAL 2019-08-10 11:11:00 Shaina Brito [facility] acute hospital GLYCOSYLATED HEMOGLOBIN 2019-08-10 11:11:00 Shaina Brito [facility] (A1C) [facility] PROTHROMBIN TIME / INR 2019-08-10 11:11:00 Shaina [facility]o [facility] CORONAVIRUS COVID-19 2019-08-10 09:04:00 Shaina Brito [facility] TESTING [facility] Encounters Start End Encounter Admission Attending Care Care Encounter Source Date/Time Date/Time Type Type Clinicians Facility Department ID 2021-10-13 Outpatient Kattegummul [facility] [id number] Common 14:25:01 a, Madhu [facility] 2021-05-06 Outpatient Kattegummul [facility] [id number] Common 14:30:56 a, Madhu [facility] 2021-05-06 Outpatient Kattegummul [facility] [id number] Common 14:26:04 a, Madhu 93208 [facility] 2021-05-06 Outpatient Kattegummul [facility]C [facility] [id number] Common 14:05:28 a, Madhu 41409 [facility] 2021-05-06 Outpatient Kattegummul [facility] [id number] Common 13:37:29 a, Madhu 80717 [facility] 2021-05-06 Outpatient SACHA Souza [facility] [id number] Common 13:36:02 Annalise 96411 [facility] 2021-05-06 Outpatient Harley STLUIS ALBERTO [facility] [id number] Common 11:25:36 Annalise 52926 [facility] 2021-02-09 Emergency [facility] [id number] Univers 02:25:27 ity [facility] 2021-10-21 2021-10-26 Inpatient RAFAEL GUERRERO [facility] [id number] [place] 00:00:00 00:00:00 914 Method i 2021-09-28 2021-09-29 Emergency X Sukhdev KOENIG [facility] ERT [id number] Univers 22:03:00 00:15:00 ity of [facility] 2021-09-28 2021-09-29 Emergency Sukhdev Koenig [facility] 1.2.840.114 [id number] Univers 22:03:00 00:15:00 Mary WHITT 350.1.13.10 i ty of [place] 4.2.7.2.686 [facility] [phone] [facility] 084 Branch 2021-09-28 2021-09-28 Orders Doctor VERONIQUE 1.2.840.114 [id number] Univers 00:00:00 00:00:00 Only Unassigned, GONZALO 350.1.13.10 ity of [place] [facility] 4.2.7.2.686 Quang [id number] [facility] 009 Branch 2021-04-07 2021-04-07 Letter Orthopedic [facility] 1.2.840.114 [id number] Univers 00:00:00 00:00:00 (Out) Clinic SPECIALTY 350.1.13.10 ity of CARE 4.2.7.2.686 [facility] AT [phone] Me pritesh PATINO 198 Branch [facility] 2021-04-02 2021-04-02 Emergency X BEATRIZ [facility] ERT [id number] Univers 12:58:00 15:25:00 FOLUSHO ity [facility] 2021-04-02 2021-04-02 Emergency Beatriz, [facility] 1.2.840.114 [id number] Univers 12:58:00 15:25:00 Azalea WHITT 350.1.13.10 ity [facility] 4[place]2.7.2.[place] [id number] [facility] 084 [place] 2021-03-11 2021-03-11 Telephone VERONIQUE Cruz [id number] Univers 00:00:00 00:00:00 Frances CORTEZY 350.1.13.10 it y of [facility] 4.2.7.2.686 Quang as [phone] [facility] 019 [place] 2021-03-10 2021-03-10 Outpatient [facility] [id number] Univers 14:45:00 14:51:40 LEXIE ity [facility] 2021-03-10 2021-03-10 Outpatient R [facility] [id number] Univers 14:45:00 14:45:00 [id number] ity [facility] 2021-03-10 2021-03-10 Laboratory Only, Ang Db Test [facility] 1.2.8 40.114 [id number] Univers 14:29:53 14:44:53 Only Unknown, Attending HEALTH 350.1.13.10 ity of [facility] 4.2.7.2.686 Quang as MARINA?BLEA [phone] [place] dical [address] MEDICAL OFFICE BUILDING 2021-03-10 2021-03-10 Orders Doctor VERONIQUE 1.2.840.114 [id number] Univers 00:00:00 00:00:00 Only Unassigned, GONZALO 350.1.13.10 ity of [place] [facility] 4.2.7.2.686 Quang as [phone] [facility] 009 [place] 2021-02-18 2021-02-20 [facility] [id number] [place] 00:00:00 00:00:00 CHERI [address] 2021-02-03 2021-02-04 Emergency X [facility] [id number] Univers 21:10:00 03:21:00 GARTH ity of [facility] 2020-10-21 2020-10-27 Inpatient SYLVIA, [facility] [id number] [place] 00:00:00 00:00:00 [address]ERTH [address] 2020-10-06 2020-10-06 Transition Jocelyne Taylor 1.2.840.114 [id number] [facility] 00:00:00 00:00:00 of Care Madiha Coopery 350.1.13.10 i ty of [place].2.[place] [phone] [facility] 403 Branch 2020-09-28 2020-10-03 [facility] Rene Evans [facility] 1.2.840. 114 [id number] [facility] 22:23:00 13:05:00 Encounter Shaina Brito 350.1.13.10 ity of [place].2.[place] [id number] [facility] 081 Branch 2020-09-28 2020-09-28 Orders Doctor VERONIQUE 1.2.840.114 [id number] Univers 00:00:00 00:00:00 Only Unassigned, GONZALO 350.1.13.10 ity of [place] [facility] 4.2.7.2.686 Quang as [phone] [facility] 009 Branch 2020-09-09 2020-09-12 Inpatient VIKTOR BILLINGS [facility] [id number] [place] 00:00:00 00:00:00 462 Method i 2020-08-08 2020-08-08 Outpatient Sami GERMAN [facility] [id number] Univers 15:40:00 15:40:00 TERRI ity of [facility] 2020-07-11 2020-07-11 Outpatient [facility] [id number] Univers 15:40:00 15:40:00 ity of [facility] 2020-06-09 2020-06-22 Inpatient VIKTOR BILLINGS [facility] [id number] [place] 00:00:00 00:00:00 836 Method i 2020-03-19 2020-03-23 Inpatient JAIME [facility] [id number] [place] 00:00:00 00:00:00 CHERI 742 Method i 2020-03-14 2020-03-18 Inpatient JAIME [facility] [id number] 585 [place] 00:00:00 00:00:00 CHERI 157 Method i 2020-02-13 2020-02-13 Laboratory Lab, [facility] 1.2.840.114 [id number] 10:22:10 10:42:10 Only Fam Pob I Health 350.1.13.10 [place] 4.2.7.2.686 Professio [phone] nal 044 Office Building [facility] 2020-02-13 2020-02-13 Laboratory Lab, [facility] Fam Pob I [facility] 1.2. 840.114 [id number] [facility] 10:22:10 10:42:10 Only [facility] 350.1.13.10 ity of [place] 4.2.7.2.686 Quang as Professio [phone] [place] dical [address] Office Building One 2019-09-28 2019-09-28 Outpatient [facility] [id number] Common 09:00:00 09:00:00 t [facility] 2019-09-18 2019-09-18 Outpatient [facility] [id number] Common 09:30:00 09:30:00 t [facility] t [facility] [place] [facility] 2019-08-14 2019-08-14 Transition Jocelyne Alexandra 1.2.840.114 [id number] 00:00:00 00:00:00 of Care Jovanny Coopery 350.1.13.10 [place] 4.2.7.2.686 [phone] [facility] 2019-08-14 2019-08-14 Transition Jocelyne Alexandra 1.2.840.114 [id number] [facility] 00:00:00 00:00:00 of Care Jovanny Souza [place] 350.1.13.10 ity of [place].2.[place] [id number] [place] [address] Branch 2019-08-10 2019-08-11 [facility] [id number] [id number] 02:55:00 16:09:00 Encounter Shaina Whitt 350.1.13.10 [place] 4.2.7.2.686 [place] [id number] [id number] 2019-08-10 2019-08-11 Inpatient U MILLIE [facility] SHRUTI [id number] Univers 02:55:00 16:09:00 ADNAN ity [facility] 2019-08-10 2019-08-11 [facility] [id number] [facility] 02:55:00 16:09:00 Encounter [facility]ain[facility]13.10 [facility] 4.2.7.2.686 [facility] [phone] [address] Results Test Description Test Time Test Comments Results Result Comments Source SARS-CoV-2 (COVID-19) RNA [Presence] in Respiratory sp ecimen by 2021-10-22 00:33:54 HELENA with probe detection Test Item Value Reference Range Interpretation Comme nts SARS-CoV-2 (COVID-19) RNA [Presence] in Respiratory specimen by Not detected HELENA with probe detection (test code = 92826-7) 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 employed in a healthcare setting (test code = Un known 68481-5) Whether the patient has symptoms related to condition of interest U nknown (test code = 18156-4) Whether the patient was hospitalized for condition of interest Unkn own (test code = 90886-1) Whether the patient was admitted to intensive care unit (ICU) for U nknown condition of interest (test code = 75906-6) Whether patient resides in a congregate care setting (test code = U nknown 18580-8) status (test code = 76517-1) Unknown Date and time of symptom onset (test code = 16567-3) Unknown [id number] 09:34:08 Test Item Value Reference Range Interpretation Comments MAGNESIUM (test code = 7145292874) 1.4 mg/dL 1.7-2.4 L Lab Interpretation (test code = Abnormal 46999-9) [facility]30781[facility]2020-10-03 09:33:48 Test Item Value Reference Range Interpretation Comments NA (test code = 136 mmol/L 135-145 2287480296) K (test code = 3.3 mmol/L 3.5-5.0 L 2207986667) CL (test code = 100 mmol/L 98-108 4307263379) CO2 TOTAL (test code = 33 mmol/L 23-31 H 7840230306) AGAP (test code = 2-16 2502278686) BUN (test code = 3 mg/dL 7-23 L 9173509937) GLUCOSE (test code = 95 mg/dL 70-110 5431037373) CREATININE (test code = 0.47 mg/dL 0.50-1.04 L 8920540818) TOTAL BILI (test code = 1.5 mg/dL 0.1-1.1 H 9739068150) CALCIUM (test code = 8.1 mg/dL 8.6-10.6 L 2234097192) T PROTEIN (test code = 5.9 g/dL 6.3-8.2 L 9418414590) ALBUMIN (test code = 2.9 g/dL 3.5-5.0 L 5020086465) ALK PHOS (test code = 115 U/L 34-122 3766153874) ALTv (test code = 24 U/L 5-35 1742-6) AST(SGOT) (test code = 35 U/L 13-40 9860067979) eGFR (test code = mL/min/1.73m2 7394161970) SNOW (test code = SNOW) Association of [...] tests). Lab Interpretation Abnormal (test code = 57621-1) [facility] 09[facility]33:28 Test Item Value Reference Range Interpretation Comments PHOSPHORUS (test code = 3228706557) 2.8 mg/dL 2.5-5.0 Lab Interpretation (test code = Normal 46538-8) [facility] WITH [id number] 09:31:46 Test Item Value Reference Range Interpretation [...] (test code = 53.8 fL 39.0-49.9 H 74027-0) RDW-CV (test code = 19.9 % 12.0-15.5 H 788-0) PLT (test code = See_Comment L [Automated 777-3) message] The sy stem which generated this result transmitted reference range : 166 - 358 10*3/ ?L. The reference r davi was not used to interpret this result as normal/abnormal . MPV (test code = 10.9 fL 9.5-12.9 29130-2) IPF % (test code = 3.6 % 1.3-7.7 Platelet count 3156891798) measured by fluorescence method. NRBC/100 WBC (test See_Comment [Automat ed code = 0911201395) message] The system which generated this result transmitted reference range : 0.0 - 10.0 /100 WBCs. The refer ence range was not u sed to interpret th is result as normal/abnormal . NRBC x10^3 (test code See_Comment [Auto mated = 2004632681) message] The s ystem which generated this result transmitted reference range : 10*3/?L. The reference range was not used to interpret this result as normal/abnormal . GRAN MAT (NEUT) % 68.1 % (test code = 770-8) IMM GRAN % (test code 1.10 % = 8446521055) LYMPH % (test code = 15.5 % 736-9) MONO % (test code = 11.3 % 5905-5) EOS % (test code = 3.4 % 713-8) BASO % (test code = 0.6 % 706-2) GRAN MAT x10^3(ANC) 2.42 10*3/uL 1.88-7.09 (test code = 4454382458) IMM GRAN x10^3 (test 0.04 10*3/uL 0.00-0.06 code = 7985608835) LYMPH x10^3 (test code 0.55 10*3/uL 1.32-3.29 L = 731-0) MONO x10^3 (test code 0.40 10*3/uL 0.33-0.92 = 742-7) EOS x10^3 (test code = 0.12 10*3/uL 0.03-0.39 711-2) BASO x10^3 (test code <0.03 0.01-0.07 = 704-7) Lab Interpretation Abnormal (test code = 68764-4) [facility] WITH [id number] 10:47:09 Test Item Value Reference Range Interpretation [...] (test code = 52.2 fL 39.0-49.9 H 27028-6) RDW-CV (test code = 18.6 % 12.0-15.5 H 788-0) PLT (test code = See_Comment L [Automated 777-3) message] The sy stem which generated this result transmitted reference range : 166 - 358 10*3/ ?L. The reference r davi was not used to interpret this result as normal/abnormal . MPV (test code = 10.1 fL 9.5-12.9 92310-0) IPF % (test code = 3.2 % 1.3-7.7 Platelet count 3831703474) measured by fluorescence method. NRBC/100 WBC (test See_Comment [Automat ed code = 9943822580) message] The system which generated this result transmitted reference range : 0.0 - 10.0 /100 WBCs. The refer ence range was not u sed to interpret th is result as normal/abnormal . NRBC x10^3 (test code See_Comment [Auto mated = 8300992295) message] The s ystem which generated this result transmitted reference range : 10*3/?L. The reference range was not used to interpret this result as normal/abnormal . GRAN MAT (NEUT) % 65.1 % (test code = 770-8) IMM GRAN % (test code 1.20 % = 5675996851) LYMPH % (test code = 16.9 % 736-9) MONO % (test code = 11.5 % 5905-5) EOS % (test code = 4.5 % 713-8) BASO % (test code = 0.8 % 706-2) GRAN MAT x10^3(ANC) 1.58 10*3/uL 1.88-7.09 L (test code = 4845045824) IMM GRAN x10^3 (test 0.03 10*3/uL 0.00-0.06 code = 2080718394) LYMPH x10^3 (test code 0.41 10*3/uL 1.32-3.29 L = 731-0) MONO x10^3 (test code 0.28 10*3/uL 0.33-0.92 L = 742-7) EOS x10^3 (test code = 0.11 10*3/uL 0.03-0.39 711-2) BASO x10^3 (test code <0.03 0.01-0.07 = 704-7) POLYCHROMASIA (test 2+ See_Comment [Automa josemanuel code = 20175-4) message] The system which generated this result transmitted reference range : 2+. The referen ce range was not u sed to interpret th is result as normal/abnormal . LG GRAN LYMPHS (test Rare Rare code = 2957526554) Lab Interpretation Abnormal (test code = 81974-9) [facility] METABOLIC PANEL (70163)2020-10-02 10:19:28 Test Item Value Reference Range Interpretation Comments NA (test code = 135 mmol/L 135-145 1003396461) K (test code = 3.4 mmol/L 3.5-5.0 L 8136417872) CL (test code = 104 mmol/L 98-108 0600740540) CO2 TOTAL (test code = 27 mmol/L 23-31 3322004185) AGAP (test code = 2-16 4461712975) BUN (test code = 4 mg/dL 7-23 L 7390551198) GLUCOSE (test code = 97 mg/dL 70-110 7939921291) CREATININE (test code = 0.45 mg/dL 0.50-1.04 L 6720872231) TOTAL BILI (test code = 1.7 mg/dL 0.1-1.1 H 7655855698) CALCIUM (test code = 8.2 mg/dL 8.6-10.6 L 0878961204) T PROTEIN (test code = 6.0 g/dL 6.3-8.2 L 5488744884) ALBUMIN (test code = 3.1 g/dL 3.5-5.0 L 2982923957) ALK PHOS (test code = 120 U/L 34-122 4615385218) ALTv (test code = 26 U/L 5-35 1742-6) AST(SGOT) (test code = 39 U/L 13-40 5254880588) eGFR (test code = mL/min/1.73m2 5248726008) SNOW (test code = SNOW) Association of [...] tests). Lab Interpretation Abnormal (test code = 77017-8) [facility] [id number] 02:50:27COVID DMT InterpretationInterpretation/Recommendations: Molecular NAAT Tests for [...] COVID-19 testing the patient has had at [facility], including molecular NAAT testing (more commonly known as PCR testing and Rapid ID Now testing) and antibody testing. It does not take into account any testingthat a patient has had outside of the [facility] medical record. [facility] LABORATORY SERVICESCOVID MobxyucSNRI-OvD-3 NAAT (no units) ? ? Date ? Value ? 02/13/2020 ? Not Detected ? SARS-CoV-2 Rapid ID NOW (no units) ? ? Date ? Value ? 09/29/2020 ? Not Detected ? ? ? 08/10/2019 ? Not Detected ? [facility] LABORATORY SERVICES [facility] WITH [id number] 10:31:29 Test Item Value Reference Range Interpretation [...] (test code = 52.3 fL 39.0-49.9 H 72862-3) RDW-CV (test code = 18.4 % 12.0-15.5 H 788-0) PLT (test code = See_Comment LL [Automated 777-3) message] The sy stem which generated this result transmitted reference range : 166 - 358 10*3/ ?L. The reference r davi was not used to interpret this result as normal/abnormal . MPV (test code = 11.2 fL 9.5-12.9 71882-6) IPF % (test code = 3.9 % 1.3-7.7 Platelet count 3668207202) measured by fluorescence method. NRBC/100 WBC (test See_Comment [Automat ed code = 1522821561) message] The system which generated this result transmitted reference range : 0.0 - 10.0 /100 WBCs. The refer ence range was not u sed to interpret th is result as normal/abnormal . NRBC x10^3 (test code <0.01 See_Comment [Auto mated = 5232369456) message] The s ystem which generated this result transmitted reference range : 10*3/?L. The reference range was not used to interpret this result as normal/abnormal . GRAN MAT (NEUT) % 57.5 % (test code = 770-8) IMM GRAN % (test code 0.50 % = 6522821757) LYMPH % (test code = 20.7 % 736-9) MONO % (test code = 13.3 % 5905-5) EOS % (test code = 6.9 % 713-8) BASO % (test code = 1.1 % 706-2) GRAN MAT x10^3(ANC) 1.08 10*3/uL 1.88-7.09 L (test code = 5508784277) IMM GRAN x10^3 (test <0.03 0.00-0.06 code = 9650650071) LYMPH x10^3 (test code 0.39 10*3/uL 1.32-3.29 L = 731-0) MONO x10^3 (test code 0.25 10*3/uL 0.33-0.92 L = 742-7) EOS x10^3 (test code = 0.13 10*3/uL 0.03-0.39 711-2) BASO x10^3 (test code <0.03 0.01-0.07 = 704-7) BASO STIPPLING (test Present A code = 703-9) ELLIPTO/OVAL (test 2+ See_Comment A [Automat ed code = 24264-9) message] The system which generated this result transmitted reference range : (none). The reference range was not used to interpret this result as normal/abnormal . POLYCHROMASIA (test 2+ See_Comment [Automa josemanuel code = 40081-8) message] The system which generated this result transmitted reference range : 2+. The referen ce range was not u sed to interpret th is result as normal/abnormal . Lab Interpretation Abnormal (test code = 99786-9) [facility]. METABOLIC PANEL (28517)2020-10-01 09:19:22 Test Item Value Reference Range Interpretation Comments NA (test code = 135 mmol/L 135-145 4133421548) K (test code = 4.0 mmol/L 3.5-5.0 1889304703) CL (test code = 107 mmol/L 98-108 6081571998) CO2 TOTAL (test code = 24 mmol/L 23-31 7101822325) AGAP (test code = 2-16 3678400024) BUN (test code = 7 mg/dL 7-23 2638517727) GLUCOSE (test code = 93 mg/dL 70-110 4089645182) CREATININE (test code = 0.47 mg/dL 0.50-1.04 L 6997555560) TOTAL BILI (test code = 1.6 mg/dL 0.1-1.1 H 4360820604) CALCIUM (test code = 8.1 mg/dL 8.6-10.6 L 2866732260) T PROTEIN (test code = 5.8 g/dL 6.3-8.2 L 6157345238) ALBUMIN (test code = 2.8 g/dL 3.5-5.0 L 0348950799) ALK PHOS (test code = 106 U/L 34-122 6464959513) ALTv (test code = 23 U/L 5-35 1742-6) AST(SGOT) (test code = 39 U/L 13-40 9953229384) eGFR (test code = mL/min/1.73m2 6356419123) SNOW (test code = SNOW) Association of [...] tests). Lab Interpretation Abnormal (test code = 10998-7) [id number]:47:45 Test Item Value Reference Range Interpretation Comments TROPONIN I (test 0.002 ng/mL See_Comment [Automated code = [id number]) message] The system which generated this result [...] ? Lab Interpretation Normal (test code = 68585-1) [id number] 19:11:57 Test Item Value Reference Range Interpretation Comments URINE CULTURE (test code <10,000 CFU/mL = 630-4) Gram-Positive Cocci [id number] 18:17:03 Test Item Value Reference Range Interpretation Comments Campylobacter (jejuni, Negative Negative, coli and upsaliensis) Indeterminate, (test code = 90072-6) See comment Plesiomonas shigelloides Negative Negative, (test code = 58496-6) Indeterminate, See comment Salmonella (test code = Negative Negative, 41555-3) Indeterminate, See comment Yersinia enterocolitica Negative Negative, (test code = 99930-4) Indeterminate, See comment Vibrio (test code = Negative Negative, 12216-2) Indeterminate, See comment Vibrio cholerae (test Negative Negative, code = 76916-7) Indeterminate, See comment Enteroaggregative E. Negative Negative, coli (EAEC) (test code = Indeterminate, 07564-1) See comment Enteropathogenic E. coli Negative Negative, N/A, (EPEC) (test code = Indeterminate, 99894-4) See comment Enterotoxigenic E. coli Negative Negative, (ETEC) (test code = Indeterminate, 28124-7) See comment Shiga toxin-Producing E. Negative Negative, coli (STEC) (test code = Indeterminate, 24573-1) See comment Shigella/Enteroinvasive Negative Negative, E. coli (EIEC) (test Indeterminate, code = 20178-3) See comment Cryptosporidium (test Negative Negative, code = 00802-0) Indeterminate, See comment Cyclospora cayetanensis Negative Negative, (test code = 62755-2) Indeterminate, See comment Entamoeba histolytica Negative Negative, (test code = 37919-6) Indeterminate, See comment Giardia lamblia (test Negative Negative, code = 96230-3) Indeterminate, See comment Adenovirus F 40/41 (test Negative Negative, code = 41755-6) Indeterminate, See comment Astrovirus (test code = Negative Negative, 83895-3) Indeterminate, See comment Norovirus GI/GII (test Negative Negative, code = 93042-0) Indeterminate, See comment Rotavirus A (test code = Negative Negative, 38745-2) Indeterminate, See comment Sapovirus (test code = Negative Negative, 04205-6) Indeterminate, See comment Clostridioides Positive Negative, A (Clostridium) difficile Indeterminate, Toxin A/B (test code = See comment 37915-3) SNOW (test code = SNOW) Based on [employer] GI Panel package insert, the [employer] GI Panel contains a single multiplexed assay [...] the binary toxin gene (CDT), and the dgvwxy-komr-dngh deletion at nucleotide 117 within the gene [...] organism. Lab Interpretation (test Abnormal code = 33540-3) [facility] [id number] 14:26:32 Test Item Value Reference Range Interpretation Comments Occult (guaiac) Blood (test code = Negative Negative 2335-8) Lab Interpretation (test code = Normal 74075-8) [facility] WITH [id number] 13:54:12 Test Item Value Reference Range Interpretation [...] (test code = 52.9 fL 39.0-49.9 H 11638-0) RDW-CV (test code = 18.3 % 12.0-15.5 H 788-0) PLT (test code = See_Comment LL [Automated 777-3) message] The sy stem which generated this result transmitted reference range : 166 - 358 10*3/ ?L. The reference r davi was not used to interpret this result as normal/abnormal . MPV (test code = 10.8 fL 9.5-12.9 58809-4) IPF % (test code = 4.2 % 1.3-7.7 Platelet count 5436915008) measured by fluorescence method. NRBC/100 WBC (test See_Comment [Automat ed code = 2667762661) message] The system which generated this result transmitted reference range : 0.0 - 10.0 /100 WBCs. The refer ence range was not u sed to interpret th is result as normal/abnormal . NRBC x10^3 (test code <0.01 See_Comment [Auto mated = 3426309994) message] The s ystem which generated this result transmitted reference range : 10*3/?L. The reference range was not used to interpret this result as normal/abnormal . GRAN MAT (NEUT) % 60.0 % (test code = 770-8) IMM GRAN % (test code 0.40 % = 0411691271) LYMPH % (test code = 20.6 % 736-9) MONO % (test code = 11.3 % 5905-5) EOS % (test code = 6.9 % 713-8) BASO % (test code = 0.8 % 706-2) GRAN MAT x10^3(ANC) 1.49 10*3/uL 1.88-7.09 L (test code = 8087960902) IMM GRAN x10^3 (test <0.03 0.00-0.06 code = 4195822012) LYMPH x10^3 (test code 0.51 10*3/uL 1.32-3.29 L = 731-0) MONO x10^3 (test code 0.28 10*3/uL 0.33-0.92 L = 742-7) EOS x10^3 (test code = 0.17 10*3/uL 0.03-0.39 711-2) BASO x10^3 (test code <0.03 0.01-0.07 = 704-7) Lab Interpretation Abnormal (test code = 23681-8) [facility]COMP[facility]OL[facility]EL (69414)2020-09-30 12:47:49 Test Item Value Reference Range Interpretation Comments NA (test code = 135 mmol/L 135-145 8368434590) K (test code = 4.0 mmol/L 3.5-5.0 2305877284) CL (test code = 108 mmol/L 98-108 8981034696) CO2 TOTAL (test code = 23 mmol/L 23-31 9259280335) AGAP (test code = 2-16 8227071677) BUN (test code = 8 mg/dL 7-23 6565119776) GLUCOSE (test code = 109 mg/dL 70-110 5162140217) CREATININE (test code = 0.52 mg/dL 0.50-1.04 7719487748) TOTAL BILI (test code = 1.7 mg/dL 0.1-1.1 H 4322762459) CALCIUM (test code = 8.0 mg/dL 8.6-10.6 L 5111074271) T PROTEIN (test code = 5.7 g/dL 6.3-8.2 L 7307183857) ALBUMIN (test code = 2.7 g/dL 3.5-5.0 L 0097916439) ALK PHOS (test code = 106 U/L 34-122 7838115945) ALTv (test code = 22 U/L 5-35 2-6) AST(SGOT) (test code = 34 U/L 13-40 0376512434) eGFR (test code = mL/min/1.73m2 4519804447) SNOW (test code = SNOW) Association of [...] tests). Lab Interpretation Abnormal (test code = 68784-9) [facility] CenterFECAL [id number] 11:49:39 Test Item Value Reference Range Interpretation Comments Fecal Leukocytes (test code = Positive Negative A 3078579877) Lab Interpretation (test code = Abnormal 24324-4) [facility] CenterN-TERMINAL [id number] 10:20:53 Test Item Value Reference Range Interpretation Comments NT-proBNP (test code 68 pg/mL See_Comment [Autom ated = 3606014395) message] The system which generated this result transmitted reference range : <=125. The reference range was not used to interpret this result as normal/abnormal . SNOW (test code = SNOW) Biotin has been reported to cause a negative bias, interpret results relative to patient's use of biotin. Lab Interpretation Normal (test code = 34683-2) [facility] CenterCLOSTRIDIUM DIFFICILE [id number] 05:18:16 Test Item Value Reference Range Interpretation Comments Clostridioides (Clostridium) Negative Negative difficile (test code = 08006-0) Lab Interpretation (test code = Normal 38125-9) [facility] CenterPODC GLUCOSE (AUTOMATED)2020-09-30 00:54:42 Test Item Value Reference Range Interpretation Comments POCT GLU (test code = 2425175291) 111 mg/dL 70-110 H Lab Interpretation (test code = Abnormal 86648-5) [facility] CenterBAC METABOLIC PANEL (NA, K, CL, CO2, GLUCOSE, BUN, CREATININE, CA)2020-09-29 22:08:22 Test Item Value Reference Range Interpretation Comments NA (test code = 135 mmol/L 135-145 7707464149) K (test code = 3.7 mmol/L 3.5-5.0 5737396469) CL (test code = 108 mmol/L 98-108 9945894522) CO2 TOTAL (test code = 22 mmol/L 23-31 L 3664704555) AGAP (test code = 2-16 6203610679) BUN (test code = 9 mg/dL 7-23 5524440000) GLUCOSE (test code = 104 mg/dL 70-110 9374121643) CREATININE (test code = 0.51 mg/dL 0.50-1.04 0784938678) CALCIUM (test code = 7.9 mg/dL 8.6-10.6 L 3871947125) eGFR (test code = mL/min/1.73m2 5931288916) SNOW (test code = SNOW) Association of [...] tests). Lab Interpretation Abnormal (test code = 62578-6) [facility] CenterHEMOGLOBIN2021-06-21 21:41:20 Test Item Value Reference Range Interpretation Comments HGB (test code = 718-7) 7.4 g/dL 11.6-15.0 L Lab Interpretation (test code = Abnormal 48680-6) [facility] CenterVITAMIN B12, [id number] 20:39:52 Test Item Value Reference Range Interpretation Comments VIT B12 (test code = 212 pg/mL 240-930 L 7928017202) SNOW (test code = SNOW) Biotin has been reported to cause a positive bias, interpret results relative to patient's use of biotin. 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.[facility] CenterC-REACTIVE [id number] 17:01:56 Test Item Value Reference Range Interpretation Comments CRP (test code = 4662559721) 4.7 mg/dL <0.8 H Lab Interpretation (test code = Abnormal 91622-9) [facility] CenterVITAMIN D, [id number] 16:43:29 Test Item Value Reference Range Interpretation Comments VIT D 25OH (test code = <13 25-80 L 51030-4) SNOW (test code = SNOW) Deficiency: <20 ng/mLInsufficiency: 20-24 ng/mLOptimal: 25-80 ng/mL Lab Interpretation (test Abnormal code = 94283-4) [facility] CenterPROCALCITONIN2021-06-21 16:15:30 Test Item Value Reference Range Interpretation Comments Procalcitonin (test 0.08 ng/mL <0.07 H code = 1755801310) SNOW (test code = SNOW) INTERPRETATION OF [...] lung abscess/empyema. For further information please refer to:[email or web address] Lab Interpretation Abnormal (test code = 60556-7) [facility] CenterOSMOLALITY [id number] 15:35:14 Test Item Value Reference Range Interpretation Comments OSMO U (test code = See_Comment [Automa josemanuel message] 3139704133) The system 2NGageU generated this result transmitted ref erence range: 50-1,100 mOsm/kg. The re ference range was not u sed to interpret this result as normal/abnor mal. Lab Interpretation (test Normal code = 68076-6) [facility] CenterTROPONIN [id number] 14:04:56 Test Item Value Reference Range Interpretation Comments TROPONIN I (test 0.002 ng/mL See_Comment [Automated code = 0058446043) message] The system which generated this result transmitted reference range : <=0.034. The reference range was not used to interpret this result as normal/abnormal . NSOW (test code = Equal or Less than [...] ? Lab Interpretation Normal (test code = 72289-1) [facility] CenterCT ABDOMEN PELVIS W [id number] 13:37:17 1. ?Findings concerning for infectious or [...] reviewed this study and agree with theabove report.[facility] WITH [id number] 11:41:25 Test Item Value Reference Range Interpretation Comments WBC (test code = See_Comment L [Automated 3990-2) message] The system which generated this result [...] (test code = 52.4 fL 39.0-49.9 H 69016-7) RDW-CV (test code = 18.2 % 12.0-15.5 H 788-0) PLT (test code = See_Comment LL [Automated 777-3) message] The system which generated this result transmit josemanuel reference range : 166 - 358 10*3/ ?L. The reference range was not u sed to interpret th is result as normal/abnormal . MPV (test code = Not Measure d 90100-4) IPF % (test code = 4.3 % 1.3-7.7 Platelet count 7431074341) measured by fluorescence method. NRBC/100 WBC (test See_Comment [Automat ed code = 0605240230) message] The system which generated this result transmit josemanuel reference range : 0.0 - 10.0 /100 WBCs. The reference range was not used to interpret this result as normal/abnormal . NRBC x10^3 (test code <0.01 See_Comment [Auto mated = 8711606005) message] The system which generated this result transmit josemanuel reference range : 10*3/?L. The reference range was not used to interpret this result as normal/abnormal . GRAN MAT (NEUT) % 74.4 % (test code = 770-8) IMM GRAN % (test code 0.50 % = 0869751510) LYMPH % (test code = 10.3 % 736-9) MONO % (test code = 12.3 % 5905-5) EOS % (test code = 2.0 % 713-8) BASO % (test code = 0.5 % 706-2) GRAN MAT x10^3(ANC) 3.02 10*3/uL 1.88-7.09 (test code = 1210513645) IMM GRAN x10^3 (test <0.03 0.00-0.06 code = 4353552238) LYMPH x10^3 (test 0.42 10*3/uL 1.32-3.29 L code = 731-0) MONO x10^3 (test code 0.50 10*3/uL 0.33-0.92 = 742-7) EOS x10^3 (test code 0.08 10*3/uL 0.03-0.39 = 711-2) BASO x10^3 (test code <0.03 0.01-0.07 = 704-7) PLT ESTIMATE (test Decreased Normal A code = 9317-9) SNOW (test code = SNOW) CBC smear reduced platelet Lab Interpretation Abnormal (test code = 32169-0) [facility] CenterN-TERMINAL [id number] 11:07:24 Test Item Value Reference Range Interpretation Comments NT-proBNP (test code 79 pg/mL See_Comment [Autom ated = 8664644317) message] The system which generated this result transmitted reference range : <=125. The reference range was not used to interpret this result as normal/abnormal . SNOW (test code = SNOW) Biotin has been reported to cause a negative bias, interpret results relative to patient's use of biotin. Lab Interpretation Normal (test code = 17290-6) [facility] CenterIRON [id number] 11:04:41 Test Item Value Reference Range Interpretation Comments IRON (test code = 9838697877) 31 ug/dL 50-160 L TIBC (test code = 3658100216) 295 ug/dL 250-410 % FE SAT (test code = 1881092227) 11 % 20-50 L Lab Interpretation (test code = Abnormal 87803-7) [facility] CenterPROTEIN CREAT RATIO URINE [id number] 10:57:19 Test Item Value Reference Range Interpretation Comments T. PROT U (test code = 2888-6) 9 mg/dL CREAT U (test code = 5296267690) 187.5 mg/dL Protein/Creatinine Ratio Urine 0.0-2.0 (test code = 1133346994) [facility] CenterSODIUM, URINE [id number] 10:53:21 Test Item Value Reference Range Interpretation Comments NA URINE (test code = 5774806292) 30 mmol/L [facility] CenterSEDIMENTATION [id number] 10:33:04 Test Item Value Reference Range Interpretation Comments ESR (test code = See_Comment [Automated message] 9103523207) The system 2NGageU generated this result transmitted ref erence range: 0 - 20 m m/HR. The reference r davi was not used to interpret this result as normal/abnor mal. Lab Interpretation (test Normal code = 39395-5) [facility] CenterPROTHROMBIN TIME / [id number] 09:43:39 Test Item Value Reference Range Interpretation Comments PROTIME PATIENT (test See_Comment H [Auto mated message] code = 5964-2) The system CYBRA generated this result transmitted ref erence range: 12.0 - 1 4.7 Seconds. The reference range was not used to int erpret this result as normal/abnormal . INR (test code = 6301-6) Nor mal INR <1.1; Warfarin Therap eutic range 2.0 to 3. 0 or 2.5 to 3.5, dep ending upon the indica tions. Lab Interpretation (test Abnormal code = 22913-9) [facility] CenterLactic Acid Whole [id number] 08:42:38 Test Item Value Reference Range Interpretation Comments LACTIC ACID (test code = 1.47 mmol/L 0.50-2.20 4376493858) Lab Interpretation (test code = Normal 11928-7) [facility] CenterFERRITIN [id number] 07:31:09 Test Item Value Reference Range Interpretation Comments FERRITIN (test code = 12.2 ng/mL 11.0-264.0 0384257008) SNOW (test code = SNOW) Biotin has been reported to cause a negative bias, interpret results relative to patient's use of biotin. Lab Interpretation (test Normal code = 93589-3) [facility] CenterTHYROID STIMULATING [id number] 07:27:08 Test Item Value Reference Range Interpretation Comments TSH (test code = See_Comment [Automated message] 2214155686) The system 2NGageU generated this result transmitted ref erence range: 0.45 - 4 .70 mIU/L. The refe rence range was not u sed to interpret this result as normal/abnor mal. Lab Interpretation (test Normal code = 51862-4) [facility] CenterGLYCOSYLATED HEMOGLOBIN (A1C)2020-09-29 07:05:40 Test Item Value Reference Range Interpretation Comments HGB A1C (test code = 5.0 % 4.0-5.7 4548-4) SNOW (test code = SNOW) Reference RangesNormal: <5.7%Prediabetes: 5.7 - 6.4%Diabetes: > 6.5% Lab Interpretation (test Normal code = 94252-1) [facility] CenterURIC [id number] 07:05:35 Test Item Value Reference Range Interpretation Comments URIC ACID (test code = 5089166843) 4.2 mg/dL 2.9-6.0 Lab Interpretation (test code = Normal 13320-6) [facility] CenterCREATINE [id number] 07:05:30 Test Item Value Reference Range Interpretation Comments CK (test code = 0917785025) 192 U/L 33-194 Lab Interpretation (test code = Normal 25018-4) [facility] CenterN-TERMINAL [id number] 07:05:30 Test Item Value Reference Range Interpretation Comments NT-proBNP (test code 94 pg/mL See_Comment [Autom ated = 4751868834) message] The system which generated this result transmitted reference range : <=125. The reference range was not used to interpret this result as normal/abnormal . SNOW (test code = SNOW) Biotin has been reported to cause a negative bias, interpret results relative to patient's use of biotin. Lab Interpretation Normal (test code = 77350-4) [facility] CenterMAGNESIUM2021-06-21 07:04:24 Test Item Value Reference Range Interpretation Comments MAGNESIUM (test code = 7210784416) 1.8 mg/dL 1.7-2.4 Lab Interpretation (test code = Normal 30526-6) [facility] CenterPHOSPHORUS2021-06-21 07:03:39 Test Item Value Reference Range Interpretation Comments PHOSPHORUS (test code = 1201786605) 2.2 mg/dL 2.5-5.0 L Lab Interpretation (test code = Abnormal 84919-9) [facility] CenterLIPID PANEL (65072)(TOTAL CHOLESTEROL, TRIGLYCERIDES, HDL)2020-09-29 06:56:06 Test Item Value Reference Range Interpretation Comments CHOL (test code = 132 mg/dL 120-200 9042969376) HDL (test code = 41 mg/dL >50 L 2981795264) HDLC RATIO (test code = See_Comment [Au tomated message] 9177474127) The system 2NGageU generated this result transmit josemanuel reference range : <=4.5. The refe rence range was not u sed to interpret th is result as normal/abnormal . TRIG (test code = 73 mg/dL 30-170 0092980844) LDL CHOL (test code = 76 mg/dL See_Comment [Auto mated message] 44306-5) The system 2NGageU generated this result transmit josemanuel reference range : <=160. The refe rence range was not u sed to interpret th is result as normal/abnormal . VLDL (test code = 15 mg/dL 5-60 9165581423) Lab Interpretation (test Abnormal code = 83367-6) [facility] CenterCOVID-19 (ID NOW RAPID TESTING)2020-09-29 06:24:26 Test Item Value Reference Range Interpretation Comments SARS-CoV-2 Rapid ID NOW Not Detected Not Detected (test code = 61559-9) SNOW (test code = SNOW) ID NOW COVID-19 Assay is an isothermal nucleic acid amplification test intended for the qualitative detection of nucleic acid from SARS-CoV-2 viral RNA in nasopharyngeal (BIN FILLER) specimens. It is used under Emergency Use [...] indicated. Lab Interpretation Normal (test code = 30981-7) [facility] CenterURINALYSIS2021-06-21 04:43:31 Test Item Value Reference Range Interpretation Comments APPEARANCE (test code = Clear Clear 4642452100) COLOR (test code = Rosanne Yellow A 0630090482) PH (test code = 4.8-8.0 9649301790) SP GRAVITY (test code = 1.003-1.030 4566816835) GLU U QUAL (test code = Normal Normal 8648979170) BLOOD (test code = Negative Negative 2930345677) KETONES (test code = Negative Negative 7051553002) PROTEIN (test code = 30 mg/dL Negative A 2887-8) UROBILIN (test code = Normal Normal 7129197384) BILIRUBIN (test code = Negative Negative 3125477675) NITRITE (test code = Negative Negative 5684762092) LEUK RANULFO (test code = 25/uL Negative A 9912601939) RBC/HPF (test code = See_Comment [Autom ated message] 6996553761) The system 2NGageU generated this result transmitted ref erence range: 0 - 3 HP F. The reference range was not used to int erpret this result as normal/abnormal . WBC/HPF (test code = See_Comment [Autom ated message] 3362142170) The system 2NGageU generated this result transmitted ref erence range: 0 - 5 HP F. The reference range was not used to int erpret this result as normal/abnormal . BACTERIA (test code = Few Negative A 0619275482) MUCOUS (test code = Moderate Negative LPF A 8906730426) SQ EPITH (test code = HPF 1335293275) Lab Interpretation (test Abnormal code = 75485-0) [facility] WITH [id number] 04:39:35 Test Item Value Reference Range Interpretation Comments WBC (test code = See_Comment [Automated 7590-2) message] The system which generated this result transmit josemanuel reference range : 4.30 - 11.10 10*3/?L. The reference range was not used to interpret this result as normal/abnormal . RBC (test code = See_Comment L [Automated 119-8) message] The system which generated this result [...] (test code = 51.3 fL 39.0-49.9 H 12846-0) RDW-CV (test code = 18.1 % 12.0-15.5 H 788-0) PLT (test code = See_Comment L [Automated 777-3) message] The system which generated this result transmit josemanuel reference range : 166 - 358 10*3/ ?L. The reference range was not u sed to interpret th is result as normal/abnormal . MPV (test code = 11.1 fL 9.5-12.9 90931-4) IPF % (test code = 3.7 % 1.3-7.7 Platelet count 3670522307) measured by fluorescence method. NRBC/100 WBC (test See_Comment [Automat ed code = 8305806160) message] The system which generated this result transmit josemanuel reference range : 0.0 - 10.0 /100 WBCs. The reference range was not used to interpret this result as normal/abnormal . NRBC x10^3 (test code <0.01 See_Comment [Auto mated = 9302417226) message] The system which generated this result transmit josemanuel reference range : 10*3/?L. The reference range was not used to interpret this result as normal/abnormal . GRAN MAT (NEUT) % 76.4 % (test code = 770-8) IMM GRAN % (test code 0.80 % = 8773907427) LYMPH % (test code = 9.4 % 736-9) MONO % (test code = 11.3 % 5905-5) EOS % (test code = 1.5 % 713-8) BASO % (test code = 0.6 % 706-2) GRAN MAT x10^3(ANC) 4.07 10*3/uL 1.88-7.09 (test code = 5024573280) IMM GRAN x10^3 (test 0.04 10*3/uL 0.00-0.06 code = 0416071033) LYMPH x10^3 (test 0.50 10*3/uL 1.32-3.29 L code = 731-0) MONO x10^3 (test code 0.60 10*3/uL 0.33-0.92 = 742-7) EOS x10^3 (test code 0.08 10*3/uL 0.03-0.39 = 711-2) BASO x10^3 (test code 0.03 10*3/uL 0.01-0.07 = 704-7) PLT ESTIMATE (test Decreased Normal A code = 9317-9) SNOW (test code = SNOW) Juan slide adgrees to decreased Platelet Lab Interpretation Abnormal (test code = 62756-0) [facility] CenterCOMP. METABOLIC PANEL (02851)2020-09-29 04:25:42 Test Item Value Reference Range Interpretation Comments NA (test code = 134 mmol/L 135-145 L 8686582372) K (test code = 3.2 mmol/L 3.5-5.0 L 6683099912) CL (test code = 104 mmol/L 98-108 4019213908) CO2 TOTAL (test code = 24 mmol/L 23-31 1370801820) AGAP (test code = 2-16 6006202573) BUN (test code = 8 mg/dL 7-23 6885888572) GLUCOSE (test code = 105 mg/dL 70-110 5205265480) CREATININE (test code = 0.51 mg/dL 0.50-1.04 8188722460) TOTAL BILI (test code = 2.5 mg/dL 0.1-1.1 H 3896720070) CALCIUM (test code = 8.2 mg/dL 8.6-10.6 L 3777831284) T PROTEIN (test code = 6.3 g/dL 6.3-8.2 6974165511) ALBUMIN (test code = 3.1 g/dL 3.5-5.0 L 0501340513) ALK PHOS (test code = 136 U/L 34-122 H 2140085526) ALTv (test code = 24 U/L 1742-6) AST(SGOT) (test code = 30 U/L 1340 5682080605) eGFR (test code = mL/min/1.73m2 1726375202) SNOW (test code = SNOW) Association of [...] tests). Lab Interpretation Abnormal (test code = 65307-2) [facility] CenterLIPASE2021-06-21 04:25:42 Test Item Value Reference Range Interpretation Comments LIPASE (test code = 3065660106) 102 U/L 0-220 Lab Interpretation (test code = Normal 88827-2) [facility] CenterSARS-CoV-2 (COVID-19) RNA [Presence] in Respiratory specimen by HELENA with probe [id number] 00:49:19 Test Item Value Reference Range Interpretation Comments SARS-CoV-2 (COVID-19) RNA Not detected Not-Detected [Presence] in Respiratory specimen by HELENA with probe detection (test code = 80997-2) 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 employed in a healthcare setting (test code = 12197-1) Whether the patient has symptoms related to condition of interest (test code = 57834-4) Patient was hospitalized because of this condition (test code = 45379-2) Whether the patient was admitted to intensive care unit (ICU) for condition of interest (test code = 54453-8) Whether patient resides in a congregate care setting (test code = 65989-3) SARS-CoV-2 (COVID-19) RNA [Presence] in Respiratory specimen by HELENA with probe [id number] 02:47:43 Test Item Value Reference Range Interpretation Comments SARS-CoV-2 (COVID-19) RNA Not detected Not-Detected [Presence] in Respiratory specimen by HELENA with probe detection (test code = 02681-3) SARS-CoV-2 (COVID-19) RNA [Presence] in Respiratory specimen by HELENA with probe [id number] 16:32:37 Test Item Value Reference Range Interpretation Comments SARS-CoV-2 (COVID-19) RNA Not detected Not-Detected [Presence] in Respiratory specimen by HELENA with probe detection (test code = 89379-1) SARS-CoV-2 (COVID-19) RNA [Presence] in Respiratory specimen by HELENA with probe [id number] 05:29:57 Test Item Value Reference Range Interpretation Comments SARS-CoV-2 (COVID-19) RNA Not detected Not-Detected [Presence] in Respiratory specimen by HELENA with probe detection (test code = 42983-8) CT ABDOMEN PELVIS W [id number] 19:27:49 1. ?No evidence of small bowel [...] reviewed this study and agree with the abovereport.[facility] WITH [id number] 11:56:00 Test Item Value Reference Range Interpretation Comments WBC (test code = See_Comment L [Automated 4690-2) message] The sy stem which generated this result transmitted reference range : 4.30 - 11.10 10*3/?L. The reference range was not used to interpret this result as normal/abnormal . RBC (test code = See_Comment L [Automated 639-8) message] The sy stem which generated this [...] (test code = 58.0 fL 39-49.9 H 63822-4) RDW-CV (test code = 16.6 % 12-15.5 H 788-0) PLT (test code = See_Comment LL [Automated 777-3) message] The sy stem which generated this result transmitted reference range : 166 - 358 10*3/ ?L. The reference r davi was not used to interpret this result as normal/abnormal . MPV (test code = 11.0 fL 9.5-12.9 93252-6) IPF % (test code = 5.5 % 1.3-7.7 Platelet count 9122149724) measured by fluorescence method. NRBC/100 WBC (test See_Comment [Automat ed code = 9654670987) message] The system which generated this result transmitted reference range : 0.0 - 10.0 /100 WBCs. The refer ence range was not u sed to interpret th is result as normal/abnormal . NRBC x10^3 (test code <0.01 See_Comment [Auto mated = 9497276840) message] The s ystem which generated this result transmitted reference range : 10*3/?L. The reference range was not used to interpret this result as normal/abnormal . GRAN MAT (NEUT) % 57.6 % (test code = 770-8) IMM GRAN % (test code 0.00 % = 4331313224) LYMPH % (test code = 27.1 % 736-9) MONO % (test code = 11.8 % 5905-5) EOS % (test code = 3.1 % 713-8) BASO % (test code = 0.4 % 706-2) GRAN MAT x10^3(ANC) 1.47 10*3/uL 1.88-7.09 L (test code = 1879111053) IMM GRAN x10^3 (test <0.03 0-0.06 code = 2897586801) LYMPH x10^3 (test code 0.69 10*3/uL 1.32-3.29 L = 731-0) MONO x10^3 (test code 0.30 10*3/uL 0.33-0.92 L = 742-7) EOS x10^3 (test code = 0.08 10*3/uL 0.03-0.39 711-2) BASO x10^3 (test code <0.03 0.01-0.07 = 704-7) Lab Interpretation Abnormal (test code = 49690-9) [facility]63427[facility]2019-[facility]-11 10:42:00 Test Item Value Reference Range Interpretation Comments NA (test code = 138 mmol/L 135-145 8546334163) K (test code = 3.8 mmol/L 3.5-5 1654029897) CL (test code = 108 mmol/L 98-108 1311333674) CO2 TOTAL (test code = 24 mmol/L 23-31 4110995519) AGAP (test code = 2-16 6940954042) BUN (test code = 10 mg/dL 7-23 5608500433) GLUCOSE (test code = 108 mg/dL 70-110 6239514310) CREATININE (test code = 0.43 mg/dL 0.5-1.04 L 3752198777) TOTAL BILI (test code = 2.5 mg/dL 0.1-1.1 H 1429674903) CALCIUM (test code = 8.4 mg/dL 8.6-10.6 L 2259344867) T PROTEIN (test code = 6.1 g/dL 6.3-8.2 L 5133507396) ALBUMIN (test code = 3.1 g/dL 3.5-5 L 2720752155) ALK PHOS (test code = 102 U/L 34-122 4701672193) ALTv (test code = 52 U/L 5-35 H 1742-6) AST(SGOT) (test code = 63 U/L 13-40 H 9125408519) eGFR Calculation mL/min/1.73m2 (Non-) (test code = 2437562816) eGFR Calculation mL/min/1.73m2 () (test code = 6583899051) SNOW (test code = SNOW) Association of [...] tests). Lab Interpretation Abnormal (test code = 73712-2) [facility] CenterXR SMALL BOWEL [id number] 02:08:11 1. ?No bowel obstruction. No fluoroscopic [...] obstruction.No fluoroscopic images or fluoroscopic time.RL 6[address] [facility]SED[facility] [id number] 16:19:00 Test Item Value Reference Range Interpretation Comments ESR (test code = See_Comment [Automated message] 6321703407) The system 2NG[employer] generated this result transmitted ref erence range: 0 - 20 m m/HR. The reference r davi was not used to interpret this result as normal/abnor mal. Lab Interpretation (test Normal code = 92186-0) [facility] Center[facility] 1 View - To confirm [...] reviewed this study and agree with the abovereport.[facility] WITH [id number] 13:48:00 Test Item Value Reference Range Interpretation [...] (test code = 58.4 fL 39-49.9 H 28701-5) RDW-CV (test code = 16.7 % 12-15.5 H 788-0) PLT (test code = See_Comment LL [Automated 777-3) message] The system which generated this result transmit josemanuel reference range : 166 - 358 10*3/ ?L. The reference range was not u sed to interpret th is result as normal/abnormal . MPV (test code = 10.5 fL 9.5-12.9 37206-9) IPF % (test code = 3.0 % 1.3-7.7 Platelet count 4523401356) measured by fluorescence method. NRBC/100 WBC (test See_Comment [Automat ed code = 5155015338) message] The system which generated this result transmit josemanuel reference range : 0.0 - 10.0 /100 WBCs. The reference range was not used to interpret this result as normal/abnormal . NRBC x10^3 (test code <0.01 See_Comment [Auto mated = 4127622242) message] The system which generated this result transmit josemanuel reference range : 10*3/?L. The reference range was not used to interpret this result as normal/abnormal . GRAN MAT (NEUT) % 57.1 % (test code = 770-8) IMM GRAN % (test code 0.40 % = 9341873505) LYMPH % (test code = 28.1 % 736-9) MONO % (test code = 10.4 % 5905-5) EOS % (test code = 3.6 % 713-8) BASO % (test code = 0.4 % 706-2) GRAN MAT x10^3(ANC) 1.42 10*3/uL 1.88-7.09 L (test code = 3288131342) IMM GRAN x10^3 (test <0.03 0-0.06 code = 7022824539) LYMPH x10^3 (test 0.70 10*3/uL 1.32-3.29 L code = 731-0) MONO x10^3 (test code 0.26 10*3/uL 0.33-0.92 L = 742-7) EOS x10^3 (test code 0.09 10*3/uL 0.03-0.39 = 711-2) BASO x10^3 (test code <0.03 0.01-0.07 = 704-7) PLT ESTIMATE (test Critically Normal AA code = 9317-9) Decreased Lab Interpretation Abnormal (test code = 25501-6) [facility] CenterGLYCOSYLATED HEMOGLOBIN (A1C)2019-08-10 13:13:00 Test Item [...] Indicated Lab Interpretation Normal (test code = 70175-2) [facility] CenterTHYROID STIMULATING [id number] 13:05:00 Test Item Value Reference Range Interpretation Comments TSH (test code = See_Comment [Automated message] 8224936799) The system 2NGageU generated this result transmitted ref erence range: 0.45 - 4 .70 mIU/L. The refe rence range was not u sed to interpret this result as normal/abnor mal. Lab Interpretation (test Normal code = 85877-9) [facility] CenterPREGNANCY TEST, [id number] 13:04:00 Test Item Value Reference Range Interpretation Comments PREG SERUM (test code Negative = 9452848509) SNOW (test code = SNOW) Less than 10 IU/L. ?If low titer or ectopic is suspected, resubmit specimen in 48-72 hours. [facility] CenterLIPID PANEL (00540)(TOTAL CHOLESTEROL, TRIGLYCERIDES, HDL)2019-08-10 12:36:00 Test Item Value Reference Range Interpretation Comments CHOL (test code = 158 mg/dL 120-200 9888054408) HDL (test code = 47 mg/dL >50 L 4661269942) HDLC RATIO (test code = See_Comment [Au tomated message] 1890327380) The system 2NG[employer]U generated this result transmit josemanuel reference range : <=4.5. The refe rence range was not u sed to interpret th is result as normal/abnormal . TRIG (test code = 51 mg/dL 30-170 1095425060) LDL CHOL (test code = 101 mg/dL See_Comment [Auto mated message] 23060-0) The system 2NG[employer]U generated this result transmit josemanuel reference range : <=160. The refe rence range was not u sed to interpret th is result as normal/abnormal . VLDL (test code = 10 mg/dL 5-60 5107771258) Lab Interpretation (test Abnormal code = 03464-3) [facility] CenterCOMP. METABOLIC PANEL (67851)2019-08-10 12:35:00 Test Item Value Reference Range Interpretation Comments NA (test code = 139 mmol/L 135-145 7702405430) K (test code = 3.9 mmol/L 3.5-5 5381668171) CL (test code = 109 mmol/L 98-108 H 4929088634) CO2 TOTAL (test code = 25 mmol/L 23-31 5982802042) AGAP (test code = 2-16 0570894674) BUN (test code = 15 mg/dL 7-23 0055685126) GLUCOSE (test code = 218 mg/dL 70-110 H 7630530348) CREATININE (test code = 0.40 mg/dL 0.5-1.04 L 4799103112) TOTAL BILI (test code = 2.0 mg/dL 0.1-1.1 H 3434717517) CALCIUM (test code = 8.5 mg/dL 8.6-10.6 L 0973063511) T PROTEIN (test code = 6.2 g/dL 6.3-8.2 L 9080006589) ALBUMIN (test code = 3.1 g/dL 3.5-5 L 5553311580) ALK PHOS (test code = 99 U/L 34-122 1372962957) ALTv (test code = 42 U/L 5-35 H 1742-6) AST(SGOT) (test code = 49 U/L 13-40 H 6224962837) eGFR Calculation mL/min/1.73m2 (Non-) (test code = 2883887615) eGFR Calculation mL/min/1.73m2 () (test code = 0495813700) SNOW (test code = SNOW) Association of [...] tests). Lab Interpretation Abnormal (test code = 63697-8) [facility] CenterMAGNESIUM2020-05-01 12:35:00 Test Item Value Reference Range Interpretation Comments MAGNESIUM (test code = 0929616753) 1.6 mg/dL 1.7-2.4 L Lab Interpretation (test code = Abnormal 83601-1) [facility] CenterPHOSPHORUS2020-05-01 12:35:00 Test Item Value Reference Range Interpretation Comments PHOSPHORUS (test code = 3797579629) 3.6 mg/dL 2.5-5 Lab Interpretation (test code = Normal 66516-3) [facility] CenterCREATINE [id number] 12:35:00 Test Item Value Reference Range Interpretation Comments CK (test code = 2837227942) 123 U/L 33-194 Lab Interpretation (test code = Normal 91756-4) [facility] CenterLIPASE2020-05-01 12:35:00 Test Item Value Reference Range Interpretation Comments LIPASE (test code = 3800272589) 141 U/L 0-220 Lab Interpretation (test code = Normal 10187-9) [facility] CenterAMYLASE2020-05-01 12:34:00 Test Item Value Reference Range Interpretation Comments LIN (test code = 4177948108) 73 U/L 35-110 Lab Interpretation (test code = Normal 62784-4) [facility] CenterPROTHROMBIN TIME / [id number] 12:07:00 Test Item Value Reference Range Interpretation Comments PROTIME PATIENT (test See_Comment H [Auto mated message] code = 5964-2) The system [employer] generated this result transmitted ref erence range: 12.0 - 1 4.7 Seconds. The reference range was not used to int erpret this result as normal/abnormal . INR (test code = 6301-6) Nor mal INR <1.1; Warfarin Therap eutic range 2.0 to 3. 0 or 2.5 to 3.5, dep ending upon the indica tions. Lab Interpretation (test Abnormal code = 17933-6) [facility] CenterCORONAVIRUS COVID-19 [id number] 10:18:00 Test Item Value Reference Range Interpretation Comments SARS-CoV-2 (test code = Not Detected Not Detected 57149-9) SNOW (test code = SNOW) ID NOW COVID-19 Assay is an isothermal nucleic acid amplification test intended for the qualitative detection of nucleic acid from SARS-CoV-2 viral RNA in nasopharyngeal (BIN FILLER) specimens. It is used under Emergency Use [...] indicated. Lab Interpretation Normal (test code = 95307-8) [facility] CenterRAD, CHEST, 1 VIEW, NON [id number] 07:50:00Reason for exam:->SOBShould this be performed at the bedside?->Yes FINAL REPORT CLINICAL HISTORY: SOB TECHNIQUE: 1 view of the chest. COMPARISON: None IMPRESSION: There is pulmonary vascular congestion with prominent lung markings bilaterally. Subpulmonic pleural effusions cannot be excluded. The cardiomediastinal silhouette is magnified by technique. Signed: Franky Louis MDReport Verified Date/Time: 10/03/2018 07:50:47 Reading Location: [facility] Radiology Reading Room [id number] 07:37:00 Test Item Value Reference Range Interpretation Comments MAGNESIUM (BEAKER) (test code = 1.6 mg/dL 1.6-2.6 627) BASIC METABOLIC [id number] 07:37:00 Test Item Value Reference Range Interpretation [...] DIALYSIS PATIEN TS. Specimen slightly ictericHEPATIC FUNCTION [id number] 07:37:00 Test Item Value Reference Range Interpretation [...] 35 U/L 6-55 347) Specimen slightly ictericPROTHROMBIN TIME/[id number] 06:25:00 Test Item Value Reference Range Interpretation [...] mechanical heart valves.CBC W/PLT COUNT & AUTO [id number] 06:16:00 Test Item Value Reference Range Interpretation [...] = 3438) Received comment: User comments: Slide comments:[id number] 05:58:00 Test Item Value Reference Range Interpretation Comments MAGNESIUM (BEAKER) (test code = 1.6 mg/dL 1.6-2.6 627) BASIC METABOLIC [id number] 05:58:00 Test Item Value Reference Range Interpretation [...] DIALYSIS PATIEN TS. Specimen slightly ictericHEPATIC FUNCTION [id number] 05:58:00 Test Item Value Reference Range Interpretation [...] 39 U/L 6-55 347) Specimen slightly ictericPROTHROMBIN TIME/[id number] 05:26:00 Test Item Value Reference Range Interpretation [...] mechanical heart valves.CBC W/PLT COUNT & AUTO [id number] 05:20:00 Test Item Value Reference Range Interpretation [...] WBC 0-0 (test code = 413) VITAMIN [id number] 06:57:00 Test Item Value Reference Range Interpretation Comments VITAMIN B12 (BEAKER) (test code = 178 pg/mL 213-816 L 774) [id number] 06:57:00 Test Item Value Reference Range Interpretation Comments FERRITIN (BEAKER) (test code = 361) 21 ng/mL 5-275 FOLATE, [id number] 06:57:00 Test Item Value Reference Range Interpretation [...] 28 % 20-55 (test code = 2590) [id number] 05:59:00 Test Item Value Reference Range Interpretation Comments MAGNESIUM (BEAKER) (test code = 1.7 mg/dL 1.6-2.6 627) BASIC METABOLIC [id number] 05:59:00 Test Item Value Reference Range Interpretation [...] FOR DIALYSIS PATIEN TS. Specimen slightly ictericLIPID [id number] 05:59:00 Test Item Value Reference Range Interpretation [...] Very High >=190 Specimen slightly ictericHEPATIC FUNCTION [id number] 05:59:00 Test Item Value Reference Range Interpretation [...] = 41 U/L 6-55 347) Specimen slightly [id number] 05:59:00 Test Item Value Reference Range Interpretation Comments LIPASE (BEAKER) (test code = 749) 35 U/L 8-78 Specimen slightly ictericPROTHROMBIN TIME/[id number] 05:58:00 Test Item Value Reference Range Interpretation [...] mechanical heart valves.CBC W/PLT COUNT & AUTO [id number] 05:37:00 Test Item Value Reference Range Interpretation [...] 417) IMMATURE GRANULOCYTES-RELATIVE 0 % 0-1 PERCENT ([facility]) (test code = 2801) POCT-HEMOGLOBIN [id number] 06:12:00 Test Item Value Reference Range Interpretation Comments POC-HEMOGLOBIN METER 8.6 g/dL 12.0-15.0 L TESTED AT [facility] [address] ([facility]) (test code = [place] [address] 1539)"
[2021-11-25] MEDS ORDERED: PROMETHAZINE INJ 25 MG/ML AMP ONE (22:45)
[2021-11-25] MEDS ORDERED: FENTANYL CITR 100 MCG/2 ML ONE (23:16)
[2021-11-25 23:48] LABS: Absolute Lymphocytes (CBC) 0.8 K/uL (0.7-4.9); Hematocrit 32.2 % (36.0-45.0); Lymphocytes % 20.2 % (15.3-44.8); MCV 84.1 fL (80-100); MPV 8.4 fL (7.6-11.3); RBC Red Blood Cell Count 3.82 M/uL (3.86-4.86)
[2021-11-26 00:39] LABS: Albumin 3.1 g/dL (3.4-5.0); Bilirubin Total 1.4 mg/dL (0.2-1.0); Protein, Total 6.7 g/dL (6.4-8.2)
[2021-11-26 01:04] LABS: Anisocytosis 1+; Blood Morphology Comment NOTED (NOT SEEN); Hypochromasia 1+; Ovalocytes 1+; Platelet Estimate DECR; White Blood Cell Scan OK (OK)
[2021-11-26] MEDS ORDERED: FENTANYL CITR 100 MCG/2 ML ONE (01:37)
[2021-11-26] MEDS ORDERED: PROMETHAZINE INJ 25 MG/ML AMP ONE (02:00)
--- NOTE | 2021-11-26 02:24 | EDPHYS ---
Physician Documentation [facility] Name: Zenaida Goss Age: 61 yrs Sex: Female : 1960 Arrival Date: 11/25/2021 Time: 20:58 Bed 6 Private MD: ED Physician Marcio Stone HPI: 11/25 23:18 This 61 yrs old Female presents to ER via Ambulatory with complaints of rn Abdominal Pain, Nausea/Vomiting. 23:18 The patient presents to the emergency department with nausea, vomiting, abdominal pain. rn Onset: The symptoms/episode began/occurred 1 week(s) ago. Possible causes: unknown. The symptoms are aggravated by food , The symptoms are alleviated by nothing. Associated signs and symptoms: Pertinent positives: abdominal pain, nausea, vomiting, Pertinent negatives: fever, GI bleeding. Severity of symptoms: At their worst the symptoms were mild in the emergency department the symptoms are unchanged. The patient has experienced similar episodes in the past. The patient has been recently seen at the [facility] Emergency Department. Pt reports UGI scope last week, pain started the day of the scope, present since then, no blood in stool. Seen again by her GI doctor who scheduled another scope next week. Pt reports seen here recently for this and had neg ct abdomen. Not prescribed anti-emetics. Reports pain is upper abdomen and shoots to back. Reports had several polyps removed.. Historical: - Allergies: 21:43 Morphine (Anaphylaxis); kd3 22:33 Demerol; aa9 22:33 Zofran; aa9 - Home Meds: 21:43 Creon Oral [Active]; Furosemide Oral [Active]; Lactulose Oral once daily [Active]; kd3 spironolactone 25 mg Oral tab 1 tab once daily [Active]; - PMHx: 21:43 Anemia; breast cancer; Cirrhosis; fatty liver; Pancreatitis; Heart Murmur; varices; kd3 - PSHx: 21:43 Appendectomy; Cholecystectomy; Total abdominal hysterectomy; Lumpectomy of breast; kd3 - Immunization history:: Adult Immunizations up to date. - Social history:: Smoking status: Patient denies any tobacco usage or history of. - Family history:: not pertinent. - Hospitalizations: : No recent hospitalization is reported. ROS: 23:18 Constitutional: Negative for fever, chills, and weight loss, Eyes: Negative for injury, rn pain, redness, and discharge, Cardiovascular: Negative for chest pain, palpitations, and edema, Respiratory: Negative for shortness of breath, cough, wheezing, and pleuritic chest pain, Abdomen/GI: + upper abd pain and nausea/vomiting Back: Negative for injury : Negative for injury, bleeding, discharge, and swelling, MS/Extremity: Negative for injury and deformity, Skin: Negative for injury, rash, and discoloration, Neuro: Negative for headache, weakness, numbness, tingling, and seizure. Exam: 23:18 Constitutional: This is a well developed, well nourished patient who is awake, alert, rn and in no acute distress. Head/Face: Normocephalic, atraumatic. Cardiovascular: Regular rate and rhythm. No pulse deficits. Respiratory: No increased work of breathing, no retractions or nasal flaring. Abdomen/GI: soft, mild epigastric tenderness, no rebound or guarding. Skin: Warm, dry MS/ Extremity: Pulses equal, no cyanosis. Neuro: Awake and alert, GCS 15 Vital Signs: 21:38 BP 114 / 77; Pulse 94; Resp 18; Temp 98.4; Pulse Ox 100% on R/A; Weight 117.93 kg; kd3 Height 5 ft. 4 in. (162.56 cm); Pain 10/10; 21:38 Body Mass Index 44.63 (117.93 kg, 162.56 cm) kd3 MDM: 21:18 Patient medically screened. rn 11/26 02:22 Differential diagnosis: Nonspecific abd pain, gastritis, viral gastroenteritis, rn gastroenteritis, chronic pain, chronic pancreatitis, GERD, gastritis. Data reviewed: vital signs, nurses notes, old medical records, lab test result(s), radiologic studies, CT scan, and as a result, I will discharge patient. Counseling: I had a detailed discussion with the patient and/or guardian regarding: the historical points, exam findings, and any diagnostic results supporting the discharge/admit diagnosis, lab results, radiology results, the need for outpatient follow up, to return to the emergency department if symptoms worsen or persist or if there are any questions or concerns that arise at home. Response to treatment: the patient's symptoms have mildly improved after treatment, and as a result, I will discharge patient. Special discussion: I discussed with the patient/guardian in detail that at this point there is no indication for admission to the hospital. It is understood, however, that if the symptoms persist or worsen the patient needs to return immediately for re-evaluation. Based on the history and exam findings, there is no indication for further emergent testing or inpatient evaluation. I discussed with the patient/guardian the need to see the button puncher for further evaluation of the symptoms. 11/25 21:19 Order name: CBC with Diff; Complete Time: 01:09 rn 11/25 21:19 Order name: CMP; Complete Time: 00:56 rn 11/25 21:19 Order name: Lipase; Complete Time: 00:56 rn 11/25 23:57 Order name: CBC Smear Scan; Complete Time: 01:09 EDMS 11/26 01:00 Order name: Abdomen EDMS 11/25 21:19 Order name: IV Saline Lock; Complete Time: 23:13 rn 11/25 21:19 Order name: Labs collected and sent; Complete Time: 23:27 rn Administered Medications: 11/25 23:04 Not Given (Duplicate Order): Demerol (meperidine) 25 mg IVP once rn 23:13 Drug: Phenergan (promethazine) 12.5 mg Route: IVP; Site: left hand; aa9 11/26 02:36 Follow up: Response: No adverse reaction aa9 11/25 23:13 Drug: fentaNYL (PF) 50 mcg Route: IVP; Site: left hand; aa9 11/26 02:36 Follow up: Response: No adverse reaction aa9 01:32 Drug: fentaNYL (PF) 50 mcg Route: IVP; Site: left hand; aa9 02:36 Follow up: Response: No adverse reaction; RASS: Alert and Calm (0) aa9 02:01 Drug: Phenergan (promethazine) 12.5 mg Route: IVP; Site: left hand; aa9 02:36 Follow up: Response: No adverse reaction aa9 Disposition Summary: 11/26/21 02:23 Discharge Ordered Location: Home rn Problem: an ongoing problem rn Symptoms: have improved rn Condition: Stable rn Diagnosis - Abdominal pain, unspecified rn - Vomiting, unspecified rn Followup: rn - With: Private Physician - When: As needed - Reason: Recheck today's complaints, Re-evaluation by your physician Discharge Instructions: - Discharge Summary Sheet rn - Abdominal Pain, Adult rn - Nausea and Vomiting, Adult rn Forms: - Medication Reconciliation Form rn - Thank You Letter rn - Antibiotic brass burnisher - Prescription Opioid Use rn Prescriptions: - promethazine 25 mg Oral Tablet - take 1 tablet by ORAL route every 6 hours As needed; 10 tablet; Refills: 0, rn Product Selection Permitted - Tramadol 50 mg Oral Tablet - take 1 tablet by ORAL route every 8 hours as needed; 12 tablet; Refills: 0, rn Product Selection Permitted Signatures: Dispatcher [employer] EDMS Marcio Stone MD MD rn Doucette, Kyli, RN RN kd3 Isela Burnett RN RN aa9 Corrections: (The following items were deleted from the chart) 11/25 22:34 21:43 Allergies: Dilaudid; kd3 aa9 11/26 01:00 11/25 23:38 Abdomen Pelvis W Con+CT.RAD.BRZ ordered. EDMS EDMS
--- NOTE | 2021-11-26 02:24 | ER ---
Nurse's Notes [facility] Name: Zenaida Goss Age: 61 yrs Sex: Female : 1960 Arrival Date: 11/25/2021 Time: 20:58 Bed 6 Private MD: Diagnosis: Abdominal pain, unspecified;Vomiting, unspecified Presentation: 11/25 21:38 Chief complaint: Patient states: last week on Tuesday I had an EGD and they found 7 kd3 polyps and i went home with a lot of pain and i cant keep anything down and I feel like im in a lot of pain. my next EGD is scheduled for the , but in the meantime's i am in pain and I have varices and i was throwing up blood. they told me to come to the ER. Coronavirus screen: Vaccine status: Patient reports receiving the 2nd dose of the covid vaccine. Ebola Screen: No symptoms or risks identified at this time. Initial Sepsis Screen: Does the patient meet any 2 criteria? No. Patient's initial sepsis screen is negative. Does the patient have a suspected source of infection? No. Patient's initial sepsis screen is negative. Risk Assessment: Do you want to hurt yourself or someone else? Patient reports no desire to harm self or others. Onset of symptoms was November 25, 2021. 21:38 Method Of Arrival: Ambulatory kd3 21:38 Acuity: TANK 3 kd3 Triage Assessment: 21:43 General: Appears uncomfortable, Behavior is calm, cooperative. Pain: Complains of pain kd3 in left upper quadrant Pain radiates to mid back area and right mid back. GI: Abdomen is non-distended, obese. Historical: - Allergies: 21:43 Morphine (Anaphylaxis); kd3 22:33 Demerol; aa9 22:33 Zofran; aa9 - Home Meds: 21:43 Creon Oral [Active]; Furosemide Oral [Active]; Lactulose Oral once daily [Active]; kd3 spironolactone 25 mg Oral tab 1 tab once daily [Active]; - PMHx: 21:43 Anemia; breast cancer; Cirrhosis; fatty liver; Pancreatitis; Heart Murmur; varices; kd3 - PSHx: 21:43 Appendectomy; Cholecystectomy; Total abdominal hysterectomy; Lumpectomy of breast; kd3 - Immunization history:: Adult Immunizations up to date. - Social history:: Smoking status: Patient denies any tobacco usage or history of. - Family history:: not pertinent. - Hospitalizations: : No recent hospitalization is reported. Screenin:44 Abuse screen: Denies threats or abuse. Denies injuries from another. Nutritional kd3 screening: No deficits noted. Tuberculosis screening: No symptoms or risk factors identified. Fall Risk None identified. Assessment: 21:44 GI: kd3 11/26 02:37 GI: Abd is soft X 4 quads. aa9 Vital Signs: 11/25 21:38 BP 114 / 77; Pulse 94; Resp 18; Temp 98.4; Pulse Ox 100% on R/A; Weight 117.93 kg; kd3 Height 5 ft. 4 in. (162.56 cm); Pain 10/10; 21:38 Body Mass Index 44.63 (117.93 kg, 162.56 cm) kd3 ED Course: 20:58 Patient arrived in ED. ja2 21:18 Marcio Stone MD is Attending Physician. rn 21:43 Triage completed. kd3 21:43 Arm band placed on right wrist. kd3 21:44 Patient has correct armband on for positive identification. kd3 21:44 No provider procedures requiring assistance completed. kd3 22:33 Geovani Silva, ERIC is Primary Nurse. as6 23:00 Inserted saline lock: 22 gauge in left hand, using aseptic technique. aa9 11/26 01:14 Abdomen In Process Unspecified. EDMS 02:37 IV discontinued, intact, bleeding controlled, No redness/swelling at site. Pressure aa9 dressing applied. Administered Medications: 11/25 23:04 Not Given (Duplicate Order): Demerol (meperidine) 25 mg IVP once rn 23:13 Drug: Phenergan (promethazine) 12.5 mg Route: IVP; Site: left hand; aa9 11/26 02:36 Follow up: Response: No adverse reaction aa9 11/25 23:13 Drug: fentaNYL (PF) 50 mcg Route: IVP; Site: left hand; aa9 11/26 02:36 Follow up: Response: No adverse reaction aa9 01:32 Drug: fentaNYL (PF) 50 mcg Route: IVP; Site: left hand; aa9 02:36 Follow up: Response: No adverse reaction; RASS: Alert and Calm (0) aa9 02:01 Drug: Phenergan (promethazine) 12.5 mg Route: IVP; Site: left hand; aa9 02:36 Follow up: Response: No adverse reaction aa9 Medication: 02:37 VIS not applicable for this client. aa9 Outcome: 02:23 Discharge ordered by . rn 02:36 Discharged to home ambulatory, with family. aa9 02:36 Condition: stable 02:36 Discharge instructions given to patient, Instructed on discharge instructions, follow up and referral plans. medication usage, Demonstrated understanding of instructions, follow-up care, medications, Prescriptions given X 2. 02:38 Patient left the ED. aa9 Signatures: Dispatcher [employer] EDMS Marcio Stone MD MD rn Alexander, Jessica ja2 Slawson, Ashby, RN RN as6 Sushila Christian RN RN kd3 Isela Burnett RN RN aa9 Corrections: (The following items were deleted from the chart) 11/25 22:34 21:43 Allergies: Dilaudid; kd3 aa9
[2021-11-26 04:54] VITALS: BP 114/77; TEMP 98.4; O2SAT 100
--- NOTE | 2021-11-26 14:51 | RAD REPORT ---
EXAM DESCRIPTION: CT - Abdomen Pelvis Wo Contrast - 11/26/2021 6:52 am CLINICAL HISTORY: 61 years Female abd pain for 1 week following EGD TECHNIQUE: Axial CT imaging of the abdomen and pelvisAxial CT imaging of the abdomen and pelvis Axial CT imaging of the abdomen and pelvis was performed without oral or intravenous contrast. Sagi ttal and coronal reconstructed images were then performed. The CT study is performed according to ALA RA (as low as reasonably achievable) or ALARA/IMAGE GENTLY, with automatic adjustment of mA and/or kV according to patient size. Performed on: 11/26/2021 at 1:13 AM COMPARISON: Prior CT abdomen and pelvis with IV contrast performed on 11/17/2021 as well as multiple p rior CT scans of the abdomen and pelvis dating back to 09/18/2017. FINDINGS: Lung bases: Lung bases are clear. Liver: The liver is normal in size and configuration. Again demonstrated is a grossly stable micronod ular contour of the liver most likely due to cirrhosis. No focal hepatic abnormalities are appreciate d on this unenhanced scan. Liver attenuation is within normal limits. Spleen: The spleen is markedly enlarged and measures approximately 21 cm in craniocaudal dimension. N o focal splenic abnormalities are appreciated on this unenhanced scan. Again demonstrated is an appro ximately 2.8 x 2.2 cm in cross-sectional diameter peripherally calcified splenic artery aneurysm. Gallbladder and bile duct: The gallbladder is surgically absent. There is no biliary ductal dilatat ion. Pancreas: The pancreas is grossly normal in size and configuration. Adrenal Glands: The adrenal glands are normal in size and configuration. Kidneys: The kidneys are normal in size and configuration. There is no evidence of hydronephrosis. Th ere is no evidence of nephrolithiasis. No focal renal abnormalities are identified. Stomach: The stomach is grossly normal. There is no definite hiatal hernia. Bowel: The bowel gas pattern is non specific and non obstructive. There is chronic stranding of the m esenteric fat in the right lower quadrant and retroperitoneum similar when compared to the study perf ormed on 09/18/2017. Appendix: The appendix is not identified on this examination and may be surgically absent. There is n o CT evidence to suggest acute appendicitis. Free air: There is no evidence of free air. Free fluid: There is no evidence of free fluid. Vasculature: The aorta is normal in caliber and contour. The inferior vena cava is grossly unremarkab le. Lymphadenopathy: No pathologic lymphadenopathy is identified. Bladder: The bladder is partially distended and smooth in contour. Reproductive: The uterus is surgically absent. Bones: No acute osseous abnormalities are identified. Soft tissues: No acute soft tissue abnormalities are identified. IMPRESSION: 1. No evidence of acute intra-abdominal or intrapelvic pathology. No significant izaguirre e when compared to the prior studies. 2. Findings compatible with cirrhosis and portal hypertension. 3. Stable peripherally calcified splenic artery aneurysm measuring approximately 2.8 x 2.2 cm in cr oss-sectional diameter. 4. Remote cholecystectomy and hysterectomy. 5. Chronic stranding of the mesenteric fat in the right lower quadrant and retroperitoneum similar when compared to the study performed on 09/18/2017. Electronically signed by: Abril Bhandari DO 11/26/2021 1:58 AM CDT Due to temporary technical issues with the PACS/Fluency reporting system, reports are being signed by the in house radiologists without review as a courtesy to insure prompt reporting. The interpreting radiologist is fully responsible for the content of the report.
== END 2021-11-26 02:38 | disposition home or self-care (01) ==
LOC: ER 20:55
DX: R10.10 Upper abdominal pain, unspecified (principal); R11.2 Nausea with vomiting, unspecified; Z85.3 Personal history of malignant neoplasm of breast; Z88.5 Allergy status to narcotic agent; Z88.8 Allergy status to other drugs, medicaments and biological substances
CPT/HCPCS: 85025; 36415; 83690; 80053; 74176; 96375; 96374; 99284; J2550 ×2; J3010 ×2

== ENCOUNTER 2021-12-09 13:54 | Emergency (ER) | payer OTHER ==
--- OUTSIDE RECORDS SUMMARY | 2021-12-09 14:03 | XMS REPORT | Continuity of Care Document ---
:1960 Author Organization [facility] t Address [address] [place] [address] Care Team Providers Name Role Phone MADHU HERNANDEZ Primary Care Physician Unavailable Madhu Hernandez Attending Clinician Unavailable Annalise Souza Attending Clinician Unavailable Jefferson Skelton MD Attending Clinician Jaime HENSLEY, Jeremy Desouza Attending Clinician [phone] Jose HENSLEY, Willian Snowden Attending Clinician Nancy HENSLEY, Nakia Attending Clinician Ronnie HENSLEY, Mahnaz Attending Clinician Feng Burgos Attending Clinician Elias Guzman MD Attending Clinician Mayda Aleman MD, Sharita Attending Clinician [phone] Maite HENSLEY, Rafael Baron Attending Clinician Aziaz Cordero MD Attending Clinician Sukhdev SOTO Attending Clinician Unavailable Sukhdev Fajardo Attending Clinician Doctor Unassigned, Surrency Attending Clinician Unavailable [facility]opedic Attending Clinician Unavailabl e IBIKUNLE, FOLUSHO F Attending Clinician Unavailable Ibikunle [employer], Folusho F Attending Clinician Frances Cruz RN Attending Clinician Unavailable LEXIE SHEFFIELD Attending Clinician Unavailable Only, Ang Db Test Attending Clinician Unavailable Unknown, Attending Attending Clinician Unavailable GARTH CARLOS Attending Clinician Unavailable ROBERTH WARD Attending Clinician Unavailable Claudia REYES, Madiha Mittal Attending Clinician Rene Evans MD Attending Clinician Shaina Pinto MD Attending Clinician MD NAKIA CRUZ Attending Clinician Unavailable TERRI GERMAN Attending Clinician Unavailable MD SHARITA SURESH Attending Clinician Unavailable MD JEREMY SANDOVAL Attending Clinician Unavailable Lab, Adc Fam Pob I Attending Clinician Unavailable Dulce Miller Attending Clinician Jovanny Alexandra RN Attending Clinician Unavailable SHAINA PINTO Attending Clinician Unavailable AVI DAVEY Attending Clinician Unavailable DRE MAYER Attending Clinician Unavailable JEREMY SANDOVAL Admitting Clinician Unavailable NAKIA CRUZ Admitting Clinician Unavailable Sukhdev SOTO Admitting Clinician Unavailable AZALEA GREEN Admitting Clinician Unavailable SHARITA SURESH Admitting Clinician Unavailable GARTH CARLOS Admitting Clinician Unavailable ROBERTH WARD Admitting Clinician Unavailable Shaina Pinto MD Admitting Clinician MD SHARITA SURESH Admitting Clinician Unavailable MD ROBERTH WARD Admitting Clinician Unavailable MD JEREMY SANDOVAL Admitting Clinician Unavailable MD NAKIA CRUZ Admitting Clinician Unavailable SHAINA PINTO Admitting Clinician Unavailable AVI DAVEY Admitting Clinician Unavailable DRE MAYER Admitting Clinician Unavailable Payers Payer Name Policy Type Policy Number Effective Date Expiration Date Deshawn blancas [facility] [id number] 2019 CHOICE 00:00:00 Problems Condition Condition Condition Status Onset Resolution Last Treating Co mments Source Name Details Category Date Date Treatment Clinician Date Acute Acute Disease Active Methodi upper GI upper GI 8-18 st bleed bleed 00:00: Hospita 00 l Anemia Anemia Disease Active Overview: Method i 8-[address] 00:00: g of this Hospita 00 note l might be different from the original. Added automatic ally from request for surgery [id number] Pancolitis Pancolitis Disease Active U nivers 6-21 ity of 00:00: [place] 00 Medical Branch Arrhythmia Arrhythmia Disease Active U nivers 6-21 ity of 00:00: [place] 00 Medical Branch Ventricula Ventricula Disease Active U nivers r r 6-21 ity of tachycardi [place]cardi [place] Other Other Disease Active Univers cirrhosis cirrhosis 6- ity of of liver of liver 00:00: [place] 00 Medical Branch ANAYA ANAYA Disease Active Univers (nonalcoho (nonalcoho 6-21 it y of lic lic 00:00: [place] steatohepa steatohepa 00 Me dical titis) titis) Branch Hypokalemi Hypokalemi Disease Active U nivers a a 6-21 ity of 00:00: [place] 00 Medical Branch Acute Acute Disease Active Univers colitis colitis 6-21 ity of 00:00: [place] 00 Medical Branch Abdominal Abdominal Disease Active Met hodi pain, pain, 3 st acute acute 00:00: Hospita 00 l Liver Liver Disease Active Methodi cirrhosis cirrhosis 06-09 st 00:00: Hospita 00 l Epigastric Epigastric Disease Active M ethodi pain pain 3 st 00:00: Hospita 00 l Pancreatit Pancreatit Disease Active 2019-04 M ethodi is due to is due to 2 st common common 00:00: Hospita bile duct bile duct 00 l stone stone Disorder Disorder Disease Active 2019-04 Metho di of liver of liver 05-15 00:00: Hospita 00 l Acute Acute Disease Active 2019-04 Methodi pancreatit pancreatit 2-04 st is without is without 00:00: Ho spita infection infection 00 l or or necrosis necrosis SBO (small SBO (small Disease Active U nivers bowel bowel 5- ity of obstruct[place] obstructio [place] 00 [facility] Increased Increased Disease Active [facility] 09[facility]30 [facility] level 00:00: Medical 00 [place] Epigastric Epigastric Disease Active [facility] abdominal abdominal 09-30 [facility] pain pain 00:[facility]: [facility] 00 Center Other Other Disease Active [facility] cirrhosis cirrhosis 09-30 [facility] [address] Intractabl Intractabl Disease Active U nivers e nausea e nausea 5 ity of and and 00:00: [place] vomiting vomiting 00 [facility] Morbid Morbid Disease Active Univers obesity obesity [...] & Disease Active Unive rs vomiting vomiting 4-29 ity of 00:00: [place] 00 Medical Branch Primary Primary Diagnosis Active 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 of itis of - [facility] right knee right knee [facility] Primary Primary Diagnosis Active 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 of itis of - [facility] left knee left knee [facility] Allergies, Adverse Reactions, Alerts Allergy Allergy Status Severity Reaction(s) Onset Inactive Treating Comm ents Source Name Type Date Date Clinician Mikaelamosami Propensi Active Rash Univer s phone ty to 09-30 ity of adverse 00:00: [place] reaction 00 Medical s Branch HYDROMOR DRUG Active Rash Univers PHONE INGREDI 09-30 ity of 00:00: [place] 00 Medical Branch Hydromor Propensi Active Itching Metho di phone ty to 3-12 st adverse 00:00: Hospita reaction 00 l s to drug Morphine Propensi Active Other (See 2019-04 Tightness Methodi ty to Comments) 05-[address] adverse 00:00: Hospita reaction 00 l s to drug Latex Propensi Active Rash 2016-[address] [facility] [facility] ty to 2-18 [facility] adverse 00:00: Medical reaction 00 Center s Morphine Propensi Active Shortness Of Throat [facility] ty to Breath, 06-30 closes, [facility] adverse Swelling 00:00: tongue Medical reaction 00 swelling Center s MORPHINE DRUG Active High Anaphylaxis Uni vers INGREDI 06-30 ity of 00:00: [place] [address] Medical Branch MORPHINE Adverse Active Info Not Commo n Reaction Available [facility] - [facility] Social History Social Habit Start Date Stop Date Quantity Comments Source History [facility] Alcohol Std Drinks History [facility] Alcohol Binge Alcohol intake 2021-12-01 2021-12-01 Lifetime [facility] 00:00:00 00:00:00 non-drinker (finding) Exposure to 2021-09-18 2021-09-28 Not sure [facility] SARS-CoV-2 00:00:00 21:57:00 [place] Medical (event) Branch History SDOH 2020-03-19 2020-03-19 1 Muslim Ho spital Alcohol Frequency 00:00:00 00:00:00 Tobacco use and 2016-06-30 2016-06-[address] [facility] [facility] exposure 00:00:00 00:00:[address] [facility] Sex Assigned At [birth year] [facility] 00:00:00 00:00:00 Smoking Status Start Date Stop Date Source Never smoked tobacco [facility] ospital Medications Ordered Filled Start Stop Current Ordering Indication Dosage Frequency Signature Comments Components Source Medication Medication Date Date Medication? Clinician (SIG) Name Name riFAXimin Yes 550mg Q.5D Take 1 Metho di (XIFAXAN) 12-[address] 550 mg 14:06: (550 mg Hospita tablet 05 total) by l mouth 2 (two) times a day. pantoprazol 2021- 40mg QD Take 1 Met hodi e 12-04 08-25 tablet (40 st (PROTONIX) 14:06: 00:00 mg total) H ospita 40 MG EC 05 :00 by mouth l tablet daily. zinc 2021- Yes 1{capsu QD Take 1 Methodi sulfate 12-04 le} capsule by st (ZINCATE) 00:00: 04:59 mouth Hospit a 50 mg zinc 00 :00 daily for l (220 mg) 30 days. capsule furosemide 2021- Yes 40mg Q.5D Take 1 Meth dimitri (Lasix) 40 12-03 tablet (40 st mg tablet 00:00: 04:59 mg total) Ho spita 00 :00 by mouth 2 l (two) times a day for 30 days. lactulose 2021- Yes 20g Q24H Take 30 mL M ethodi 10 gram/15 12-03 ([address] mL (15 mL) 00:00: 04:59 total) by H ospita solution 00 :00 mouth l daily as needed (2 to 3 soft stools per day) for up to 30 days. pantoprazol 2021- Yes 40mg QD Take 1 Met hodi e 12-03 tablet (40 st (PROTONIX) 00:00: 04:59 mg total) H ospita 40 MG EC 00 :00 by mouth l tablet daily for 30 days. spironolact 2021- Yes 50mg Q.5D Take 1 Met hodi one 12-03 tablet (50 st (ALDACTONE) 00:00: 04:59 mg total) Hospita 50 MG 00 :00 by mouth 2 l tablet (two) times a day for 30 days. ondansetron 2021- Yes 4mg Q8H Take 1 Met hodi ODT 12-03 tablet (4 st (ZOFRAN-ODT 00:00: 04:59 mg total) Hospita ) 4 MG 00 :00 by mouth l disintegrat every 8 ing tablet (eight) hours as needed for nausea or vomiting for up to 30 days. sucralfate 2021- Yes 1g Q.25D Take 10 mL Methodi (CARAFATE) 12-03 ([address] 100 mg/mL 00:00: 04:59 total) by Ho spita suspension 00 :00 mouth 4 l (four) times a day before meals and nightly for 30 days. HYDROcodone 2021- Yes [id number] 1{tbl} Q6H Take 1 Methodi -acetaminop 8-25 09-05 tablet by hen (NORCO) 00:00: 04:59 mouth [facility] 10-325 mg 00 :00 every 6 l per tablet (six) hours as needed for severe pain for up to 10 days .acute pain. Max Daily Amount: 4 tablets pancrelipas 2021- No 1{capsu Q.[id number] Take 1 Methodi e, 818 08-18 le} [id number] capsule by lipase-prot 20:41: 00:00 3D mouth 3 Ho spita ease-amylas 22 :00 (three) l e, (CREOND) times a 12,000-38,0 day with 00 -60,000 meals. unit capsule,del ayed release(DR/ EC) capsule spironolact 2021- No 25mg QD Take 25 mg Methodi one 10-26-[address] (ALDACTONE) 14:44: 00:00 daily. Hos alvaro 25 MG 06 :00 l tablet furosemide 2021- No 20mg QD Take 20 mg Methodi (LASIX) 20 10-26-[address] mg tablet 14:44: 00:00 daily. Hospi ta 06 :00 l spironolact 2021- No 50mg Q.5D Take 1 Met hodi one 18 08-25 tablet (50 st (ALDACTONE) 00:00: 00:00 mg total) Hospita 50 MG 00 :00 by mouth 2 l tablet (two) times a day for 30 days. furosemide 2021- No 40mg Q.5D Take 1 Meth dimitri (Lasix) 40 18 08-25 tablet (40 st mg tablet 00:00: 00:00 mg total) Ho spita 00 :00 by mouth 2 l (two) times a day for 30 days. acetaminoph 2021- No 1{tbl} 1 tablet, Univers en-codeine 09-29 06-21 Oral, ity of (TYLENOL 06:00: 05:02 ONCE, 1 [place] #3) 300-30 00 :00 dose, On Medic al mg tablet 1 Tue Branch tablet 09/29/21 at 0100, VERN naproxen No 500mg 500 mg, Univ ers (NAPROSYN) 09-29 Oral, ity of tablet 500 06:00: 04:58 ONCE, 1 [place] as mg 00 :00 dose, On Medical e Branch 09/29/21 at 0100, Routine naproxen Yes [id number] 500mg Take 1 Univers (NAPROSYN) 09-28 9104 [...] 04/02/21 at 1445, VERN ondansetron 2020-04 Yes [id number] 4mg Take 1 Univers 4 mg 2-23 tablet by ity of disintegrat 00:00: mouth [place] ing tablet 00 every 8 Medica l (eight) Branch hours as needed for Nausea and Vomiting (N/V). ondansetron 2020-04 Yes [id number] 4mg Take 1 Univers 4 mg 2-23 tablet by ity of disintegrat 00:00: mouth [place] ing tablet 00 every 8 Medica l (eight) Branch hours as needed for Nausea and Vomiting (N/V). ondansetron 2020-04 Yes [id number] 4mg Take 1 Univers 4 mg 2-23 tablet by ity of disintegrat 00:00: mouth [place] ing tablet 00 every 8 Medica l (eight) Branch hours as needed for Nausea and Vomiting (N/V). ondansetron 2020-04 Yes [id number] 4mg Take 1 Univers 4 mg 2-23 tablet by ity of disintegrat 00:00: mouth [place] ing tablet 00 every 8 Medica l (eight) Branch hours as needed for Nausea and Vomiting (N/V). polyethylen 2020-04- No 17g QD Take 17 g Methodi e glycol 04-23 12-[address] (MIRALAX) 00:00: 05:59 daily for Ho spita 17 gram 00 :00 30 days. l packet magnesium 2020-04- No 296mL Take 1 Meth dimitri citrate 04-22-[address] solution 00:00: 00:00 (296 mL Hospi ta 00 :00 total) by l mouth once as needed (constipat ion) for up to 1 dose. docusate 2020-04- No 100mg Q.5D Take 1 Metho di sodium 04-[address] (Colace) 00:00: 05:59 (100 mg Hospi ta 100 MG 00 :00 total) by l capsule mouth 2 (two) times a day for 30 days. lactulose 2021- No 20g Q24H Take 30 mL M ethodi 10 gram/15 -18 08-25 ([address] mL (15 mL) 00:00: 00:00 total) by H ospita solution 00 :00 mouth l daily as needed (2 to 3 soft stools per day). cholecalcif 2020- No [id number] 2000U Take 2 Univers nuno, 6-26 07-27 tablets by ity of vitamin D3, 00:00: 04:59 [place] 25 mcg 00 :00 daily for Medical (1,000 30 days. Branch unit) tablet cyanocobala 2020- No [id number] 1000ug inject 1 Univers min 1,000 6-26 07-27 mL under ity o f mcg/mL 00:00: 04:59 the skin [place] injection 00 :00 every 24 Medica l (twenty-fo Branch ur) hours for 30 days. KCL 20 mEq 2020- No [id number] 20meq Take 1 Univers tablet 6-26 07-27 tablet by ity of 00:00: 04:59 mouth [place] 00 :00 daily for Medical 30 days. Branch cholecalcif 2020- No [id number] 2000U Take 2 Univers nuno, - 07-27 tablets by ity of vitamin D3, 00:00: 04:59 mouth [place] 25 mcg 00 :00 daily for Medical (1,000 30 days. Branch unit) tablet cyanocobala 2020- No [id number] 1000ug inject 1 Univers min 1,000 6- 07-27 mL under ity o f mcg/mL 00:00: 04:59 the skin [place] injection 00 :00 every 24 Medica l (twenty-fo Branch ur) hours for 30 days. KCL 20 mEq 2020- No [id number] 20meq Take 1 Univers tablet 10-04-27 tablet by ity of 00:00: 04:59 mouth [...] daily. [place] solution 25 Medical Branch pantoprazol 2021-0 Yes 40mg Take 40 mg Univers e [...] mg EC 25 Medical tablet Branch lactulose 2020-0 Yes 30mL Take 30 mL Un marline [...] unresponsi ve to Ondansetro n proMETHazin Yes [id number] 12.5mg Take 1 Univers e 12.5 mg 6-25 tablet by ity o f tablet 00:00: mouth [place] 00 every 6 Medical (six) Branch hours as needed for Nausea and Vomiting (N/V) or N/V unresponsi ve to Ondansetro n. proMETHazin Yes [id number] 12.5mg Take 1 Univers e 12.5 mg 6-25 tablet by ity o f tablet 00:00: mouth [place] 00 every 6 Medical (six) Branch hours as needed for Nausea and Vomiting (N/V) or N/V unresponsi ve to Ondansetro n. proMETHazin Yes [id number] 12.5mg Take 1 Univers e 12.5 mg 6-25 tablet by ity o f tablet 00:00: mouth [place] 00 every 6 Medical (six) Branch hours as needed for Nausea and Vomiting (N/V) or N/V unresponsi ve to Ondansetro n. proMETHazin Yes [id number] 12.5mg Take 1 Univers e 12.5 mg 6-25 tablet by ity o f tablet 00:00: mouth [place] 00 every 6 Medical (six) Branch hours as needed for Nausea and Vomiting (N/V) or N/V unresponsi ve to Ondansetro n. proMETHazin Yes [id number] 12.5mg Take 1 Univers e 12.5 mg 6-25 tablet by ity o f tablet 00:00: mouth [place] 00 every 6 Medical (six) Branch hours as needed for Nausea and Vomiting (N/V) or N/V unresponsi ve to Ondansetro n. proMETHazin Yes [id number] 12.5mg Take 1 Univers e 12.5 mg 6-25 tablet by ity o f tablet 00:00: mouth [place] 00 every 6 Medical (six) Branch hours as needed for Nausea and Vomiting (N/V) or N/V unresponsi ve to Ondansetro n. proMETHazin Yes [id number] 12.5mg Take 1 Univers e 12.5 mg 6-25 tablet by ity o f tablet 00:00: mouth [place] 00 every 6 Medical (six) Branch hours as needed for Nausea and Vomiting (N/V) or N/V unresponsi ve to Ondansetro n. proMETHazin Yes [id number] 12.5mg Take 1 Univers e 12.5 mg 6-25 tablet by ity o f tablet 00:00: mouth [place] 00 every 6 Medical (six) Branch hours as needed for Nausea and Vomiting (N/V) or N/V unresponsi ve to Ondansetro n. proMETHazin Yes [id number] 12.5mg Take 1 Univers e 12.5 mg 6-25 tablet by ity o f tablet 00:00: mouth [place] 00 every 6 Medical (six) Branch hours as needed for Nausea and Vomiting (N/V) or N/V unresponsi ve to Ondansetro n. furosemide 2020- No [id number] 40mg Take 1 Univers 40 mg 6-25 07-26 tablet by ity of tablet 00:00: 04:59 mouth [place] 00 :00 every Medical morning Branch and evening for 30 days. lipase-prot 2020- No [id number] 2{capsu Take 2 Univers ease-amylas 6-25 07-26 le} capsules ity of e 00:00: 04:59 by mouth 3 [place] 12,000-38,0 00 :00 (three) Medic al 00 -60,000 times Branch unit daily with capsule meals for 30 days. lactobacill 2020- No [id number] .5mg Take 1 Univers us 6-25 07-26 tablet by ity of acidophilus 00:00: 04:59 mouth 2 [place] 00 :00 (two) Medical times Branch daily for 30 days. furosemide 2020- No [id number] 40mg Take 1 Univers 40 mg 6-25 - tablet by ity of tablet 00:00: 04:59 mouth [place] 00 :00 every Medical morning Branch and evening for 30 days. lipase-prot 2020- No [id number] 2{capsu Take 2 Univers ease-amylas 6-25 -26 le} capsules ity of e 00:00: 04:59 by mouth 3 [place] 12,000-38,0 00 :00 (three) Medic al 00 -60,000 times Branch unit daily with capsule meals for 30 days. lactobacill 2020- No [id number] .5mg Take 1 Univers us 6-25 - tablet by ity of acidophilus 00:00: 04:59 mouth 2 [place] 00 :00 (two) Medical times Branch daily for 30 days. vancomycin 2020- No [id number] 125mg Take 1 Univers 125 mg 6-25 -06 capsule by ity of capsule 00:00: 04:59 mouth 4 [place] 00 :00 (four) Medical times Branch daily for 10 days. vancomycin 2020- No [id number] 125mg Take 1 Univers 125 mg 6-25 - capsule by ity of [...] Indication s: acute pain cephALEXin 2020- No [id number] 500mg Take 1 Univers 500 mg 6-25 - capsule by ity of capsule 00:00: 04:59 mouth 4 [place] 00 :00 (four) Medical times Branch daily for 5 days. cephALEXin 2020- No [id number] 500mg Take 1 Univers 500 mg 10-03 capsule by ity of capsule 00:00: 04:59 mouth 4 [place] 00 :00 (four) [facility] times [place] daily for 5 days. meperidine Yes 25mg [...] 21:15: First dose [place] mg 00 on [facility] 09/30/20 at Branch 1615, Until Discontinu ed, VERN
Fa culty member approving Non-formul mary medication : TOMASA RUCKER
R kelvin for non-formul mary use: SPECIFIC INDICATION FOR NONFORMULA RY PRODUCT
Reason for Anti-Infec tive: Documented Infection< br>Docu mented Infection Site: Abdominal< br>Duratio n of Therapy: 7 days proMETHazin 2020- No 12.5mg 12.5 mg, Univers e 09-30 IV ity of (PHENERGAN) 17:11: 19:59 Piggyback, [place] 12.5 mg in 58 :55 Q4HPRN, Medica [...] lty member approving Restricted medication : TOMASA RUCKER cyanocobala Yes 1000ug 1,000 mcg, Univers min 09-30 Subcutaneo ity of (VITAMIN 14:45: us, Q24H, [place] B12) 00 First dose Medical injection on e Branch 1,000 mcg 09/30/20 at 0945, Until Discontinu ed, Routine zolpidem Yes 2.5mg 2.5 mg, Unive rs (AMBIEN) 09-30 Oral, ity of tablet 2.5 03:51: QHSPRN, [place] mg 57 Starting Medical [facility] Branch 09/29/20 at 2251, Until Discontinu [...] 09-29 Units, ity of (vitamin 20:00: Oral, [place] D3) tablet 00 DAILY, Medical 2,000 Units First dose Br anch on 09/29/20 at 1500, Until Discontinu ed, Routine [...] First dose Me dical 00 -60,000 on [facility] Branch unit 09/29/20 at capsule 2 [...] , Starting Branch 09/29/20 at 0245, Until Tue09/29/20 at 1449, Routine NaCl 0.9% 2020- No 2000mL at 999 Uni vers (NS) IV 09-29 mL/hr, ity of infusion 07:45: 09:04 Intravenou [place] 2,000 mL 00 :00 s, ONCE, 1 Medic al dose, [facility] Branch 09/29/20 at 0245, Routine FENTanyl PF No 50ug 50 mcg, Un marline (SUBLIMAZE 09-29 Slow IV ity o f (PF)) 07:30: 06:27 Push, [place] injection 00 :00 ONCE, 1 Medical 50 mcg dose, [facility] Branch 09/29/20 at 0230, Routine piperacilli No 3.375g 3.375 g, Univers n-tazobacta 09-29 IV ity of m (ZOSYN) 07:30: 07:00 Piggyback, [place] 3.375 g in 00 :00 ONCE, 1 Medica l NaCl 0.9% dose, [facility] h (NS) 100 mL 09/29/20 at MINI-BAG 0230, 100 mL
Reas on for Anti-Infec tive: Documented Infection< br>Documen josemanuel Infection Site: Abdominal< br>Duratio n of Therapy: Other (see Comments) pantoprazol No 40mg 40 mg, IV Univers e 09-29 Piggyback, ity of (PROTONIX) 06:45: 21:11 Q12H, [place] 40 mg in 00 :56 First dose Medic al NaCl 0.9% on [facility] Branch (NS) 100 mL 09/29/20 at [...] Medi molly mg [facility] Branch 09/29/20 at 0142, Until Discontinu ed, Routine, Nausea and Vomiting (N/V) iopamidol 2020- No [id number] 100mL 100 mL, Univers (ISOVUE 09-29 Intravenou [...] 50 mcg dose, [facility] Branch 09/29/20 at 0045, Routine NaCl 0.9% 2020- No 1000mL at 999 Uni vers (NS) IV 09-29 06-21 mL/hr, ity of infusion 05:45: 06:38 Intravenou [place] 1,000 mL 00 :45 s, Medical CONTINUOUS Branch , Starting 09/29/20 at 0045, Until 09/29/20 at 0138, Routine Meloxicam Meloxicam 2019-0 2020- No Gm 1 tablet Common 09-17- [facility] 00:00: 00:00 - [facility] 00 :00 [facility] flu vaccine 2019-0 2020- No .5mL 0.5 mL, Un marline 6 months 08-10- Intramuscu ity of and up 20:51: 20:54 lar, ONCE, [place] (FLUZONE 00 :00 1 dose, Medical QUAD 08/11/19 Branch at 1600, (PF)) Routine syringe 0.5 mL lactulose 2019-0 2020- No 30mL Take 30 mL U nivers 10 gram/15 08-10- by mouth 2 it y of mL oral 19:53: 00:00 (two) [place] solution 33 :00 times Medical daily. Branch iohexol 0 2020- No 120mL 120 mL, Unive rs (OMNIPAQUE -05 16- Intravenou it y of 350 15:00: 14:46 [...] for Pain (scale 4-6). acetaminoph 2020-0 Yes [id number] 1{tbl} Take 1 Univers en-codeine 5-02 tablet by ity of 300-30 mg 00:00: mouth [place] tablet 00 every 4 Medical (four) Branch hours as needed for Pain (scale 4-6). acetaminoph 2020-0 Yes [id number] 1{tbl} Take 1 Univers en-codeine 5-02 tablet by ity of 300-30 mg 00:00: mouth [place] tablet 00 every 4 Medical (four) Branch hours as needed for Pain (scale 4-6). acetaminoph 2020-0 Yes [id number] 1{tbl} Take 1 Univers en-codeine 5-02 tablet by ity of 300-30 mg 00:00: mouth [place] tablet 00 every 4 Medical (four) Branch hours as needed for Pain (scale 4-6). lactulose 2019-0 2020- No [id number] 30mL Take 30 mL Univers 10 gram/15 5-02 06-02 by mouth 2 it y of mL oral 00:00: 04:59 (two) [place] solution 00 :00 times Medical daily for Branch 30 days. pantoprazol 2019-0 2020- No [id number] 40mg Take 1 Univers e 40 mg EC 5-02 06-02 tablet by ity of tablet 00:00: 04:59 mouth [place] 00 :00 daily for Medical 30 days. Branch lactulose 2019-0 2020- No [id number] 30mL Take 30 mL Univers 10 gram/15 5-02 06-02 by mouth 2 it y of mL oral 00:00: 04:59 (two) [place] solution 00 :00 times Medical daily for Branch 30 days. pantoprazol 2019-0 2020- No [id number] 40mg Take 1 Univers e 40 mg EC 5-02 06-02 tablet by ity of tablet 00:00: 04:59 mouth [place] 00 :00 daily for Medical 30 days. Branch propranolol 2019-0 2020- No [id number] 10mg Take 1 Univers 10 mg 5-02 05-02 tablet by ity of tablet 00:00: 00:00 mouth 2 [place] 00 :00 (two) Medical times Branch daily for 30 days. ibuprofen 2019-0 Yes 600mg 600 mg, Univ ers (IBU) 5-01 Oral, ity of tablet 600 20:57: Q6HPRN, [...] 0800, Until Discontinu ed, 100 mL LORazepam 2019-0 2020- No .25mg 0.25 mg, Un marline [...] Push, ity of (PF)) 08:55: 03:29 Q6HPRN, [place] injection 4 07 :20 Starting Medi molly mg Tue08/10/19 Branch at 0355, Until Tue08/10/19 at 2229, Routine, Nausea and Vomiting (N/V) lactulose 2019-0 Yes 10g Q.5D Take [address] (CEPHULAC) 6-25 by mouth 2 [place] es 10 gram 17:37: (two) Medical packet 13 times Center daily . rifAXIMin Yes hepatic 550mg Q.5D Take [address] 550 mg Tab 6-25 encephalopa mg by L ukes 17:37: thy mouth 2 Medical 13 (two) Center times daily. ibuprofen 2019- No 600mg Take 1 Univ ers 600 mg 18 - tablet by ity of tablet 00:00: 00:00 [...] Sodium e Sodium Singh defined Spir it [facility] Acetaminoph Acetaminoph Yes Gm not Common en-Codeine en-Codeine Singh defined [facility] #3 #3 [facility] Oseltamivir Oseltamivir Yes Gm not Common Phosphate Phosphate Singh defined Sp cleopatra [facility] Levofloxaci Levofloxaci Yes Gm not Common n n Singh defined [facility] Xifaxan Xifaxan Yes Gm not Common Singh defined [facility] [facility] Lactulose Lactulose Yes Gm not Co mmon Singh defined [facility] Albuterol Albuterol Yes Gm not Co mmon Sulfate HFA Sulfate HFA Singh defined [facility] Azithromyci Azithromyci Yes Gm not Common n n Singh defined [facility] Amoxicillin Amoxicillin Yes Gm not Common -Pot -Pot Singh defined [facility] Clavulanate Clavulanate [facility] Immunizations Ordered Filled Immunization Date Status Comments Sour e Immunization Name Name FLUCELVAX QUAD PF 2021-02-[address] 00:00:00 [facility] Pneumococcal 2020-10-03 Completed University o f Polysaccharide, [...] 00:00:00 [facility] SARS-COV-2 COVID-19 2020-07-11 Completed Unive rsity of MODERNA VACCINE 00:00:00 [facility] SARS-COV-2 COVID-19 2020-07-11 Completed Unive rsity of MODERNA VACCINE 00:00:00 [facility] SARS-COV-2 COVID-19 2020-07-11 Completed Unive rsity of MODERNA VACCINE 00:00:00 [facility] SARS-COV-2 COVID-19 2020-07-11 Completed Unive rsity of MODERNA VACCINE 00:00:00 [facility] SARS-COV-2 COVID-19 2020-07-11 Completed Unive rsity of MODERNA VACCINE 00:00:00 [facility] SARS-COV-2 COVID-19 2020-07-11 Completed Unive rsity of MODERNA VACCINE 00:00:00 [facility] SARS-COV-2 COVID-19 2020-07-11 Completed Unive rsity of MODERNA VACCINE 00:00:00 [facility] SARS-COV-2 COVID-19 2020-07-11 Completed Unive rsity of MODERNA VACCINE 00:00:00 [facility] SARS-COV-2 COVID-19 2020-07-11 Completed Unive rsity of MODERNA VACCINE 00:00:00 [facility] SARS-COV-2 COVID-19 2020-07-11 Completed Unive rsity of MODERNA VACCINE 00:00:00 [facility] Influenza Virus 2019-08-11 Completed Universit y of Vaccine Quad .5 mL 00:00:00 [facility] 6[facility] Influenza Virus 2019-08-11 Completed Universit y of Vaccine Quad .5 mL 00:00:00 [facility] 6+ [facility] Influenza Virus 2019-08-11 Completed Universit y of Vaccine Quad .5 mL 00:00:00 [facility] 6+ [place] Influenza Virus 2019-08-11 Completed Universit y of Vaccine Quad .5 mL 00:00:00 [facility] 6+ [facility] Branch Influenza Virus 2019-08-11 Completed Universit y of Vaccine Quad .5 mL 00:00:00 [facility] 6+ [facility] Influenza Virus 2019-08-11 Completed Universit y of Vaccine Quad .5 mL 00:00:00 [facility] 6+ [facility] Influenza Virus 2019-08-11 Completed Universit y of Vaccine Quad .5 mL 00:00:00 [facility] 6+ [facility] Influenza Virus 2019-08-11 Completed Universit y of Vaccine Quad .5 mL 00:00:00 [facility] 6+ [facility] Influenza Virus 2019-08-11 Completed Universit y of Vaccine Quad .5 mL 00:00:00 [facility] 6+ [facility] Influenza Virus 2019-08-11 Completed Universit y of Vaccine Quad .5 mL 00:00:00 [facility] 6+ [facility] Influenza Virus 2019-08-11 Completed Universit y of Vaccine Quad .5 mL 00:00:00 [facility] 6+ [facility] Influenza Virus 2019-08-11 Completed Universit y of Vaccine Quad .5 mL 00:00:00 [facility] 6+ [facility] Influenza Virus 2019-08-11 Completed Universit y of Vaccine Quad .5 mL 00:00:00 [facility] 6[facility] Vital Signs Vital Name Observation Time Observation Value Comments Source Systolic blood 2021-09-29 03:00:00 126 mm[Hg] Univer sity of pressure [facility] Diastolic blood 2021-09-29 03:00:00 57 mm[Hg] Unive rsity of pressure [facility] Heart rate 2021-09-29 03:00:00 78 /min [facility] Body temperature 2021-09-29 03:00:00 37.28 Sandee Univ ers[facility] Respiratory rate 2021-09-29 03:00:00 16 /min [facility] Body height 2021-09-29 03:00:00 162.6 cm [facility] Body weight 2021-09-29 03:00:00 117.935 kg [facility] BMI 2021-09-29 03:00:00 44.63 kg/m2 [facility] Oxygen saturation in 2021-09-29 03:00:00 97 /min University of Arterial blood by [place] [facility] P[facility] oximetry [facility] Systolic blood 2021-04-02 18:55:00 [...] by [facility] Systolic blood 2020-10-03 [...] University of Arterial blood by [facility] Pulse oximetry Branch Body weight 2020-09-30 08:11:00 121.473 kg [facility] BMI 2020-09-30 08:11:00 47.44 kg/m2 [facility] Body height 2020-09-29 03:33:00 160 cm [facility] Diastolic blood 2019-08-11 20:04:00 44 mm[Hg] Unive rsity of pressure [facility] Heart rate 2019-08-11 20:04:00 70 /min [facility] [place] Body temperature 2019-08-11 20:04:00 36.61 Sandee [facility] Respiratory rate 2019-08-11 20:04:00 18 /min Univ [facility] Oxygen saturation in 2019-08-11 20:04:00 91 /min University of Arterial blood by [facility] Pulse oximetry Branch Systolic blood 2019-08-11 20:04:00 107 mm[Hg] [facility]iver [facility] [place] Body height 2019-08-10 08:01:00 162.6 cm [facility] Body weight 2019-08-10 08:01:00 119.296 kg [facility] BMI 2019-08-10 08:01:00 45.14 kg/m2 [facility] Diastolic blood 2019-08-11 20:04:00 44 mm[Hg] [facility] [place] Heart rate 2019-08-11 20:04:00 70 /min [facility] Body temperature 2019-08-11 20:04:00 36.61 Sandee [facility] Respiratory rate 2019-08-11 20:04:00 18 /min Univ [facility] Oxygen saturation in 2019-08-11 20:04:00 91 /min University of Arterial blood by [facility] Pulse oximetry Branch Systolic blood 2019-08-11 20:04:00 107 mm[Hg] Univer sity of [facility] Body height 2019-08-10 08:01:00 162.6 cm [facility] Body weight 2019-08-10 08:01:00 119.296 kg [facility] BMI 2019-08-10 08:01:00 45.14 kg/m2 [facility] Systolic blood 2021-12-03 12:21:16 129 mm[Hg] [facility] pressure Diastolic blood 2021-12-03 12:21:16 58 mm[Hg] [facility] pressure Heart rate 2021-12-03 12:21:16 68 /min [facility] Body temperature 2021-12-03 12:21:16 36.11 Sandee [facility] Respiratory rate 2021-12-03 12:21:16 20 /min [facility] Oxygen saturation in 2021-12-03 12:21:16 95 /min [facility] Arterial blood by Pulse oximetry Body weight 2021-12-03 11:09:00 112.6 kg [facility] BMI 2021-12-03 11:09:00 42.61 kg/m2 [facility] Body height 2021-10-21 16:02:36 162.6 cm [facility] Procedures Procedure Date / Time Performing Source Performed Clinician HC COMPLETE BLD COUNT W/AUTO DIFF 2021-12-03 Jose Sandoval 11:14:00 [facility] PROTHROMBIN TIME WITH INR 2021-12-03 Jeremy Sandovalt 11:14:00 [facility] BASIC METABOLIC PANEL 2021-12-03 Jeremy Sandoval 11:14:00 [facility] HEPATIC FUNCTION PANEL 2021-12-03 Jeremy Sandoval 11:14:00 [facility] PHOSPHORUS LEVEL 2021-12-03 Jeremy Sandoval 11:14:00 [facility] MAGNESIUM LEVEL 2021-12-03 Jeremy Sandoval 11:14:00 [facility] ESTIMATED GFR 2021-12-03 Jeremy Sandoval 11:14:00 [facility] SMEAR REVIEW 2021-12-03 Jeremy Sandoval 11:14:00 [facility] US DUPLEX VENOUS UPPER EXTREMITY 2021-12-02 Li, Nakia Muslim LEFT 18:10:00 Hospital HC COMPLETE BLD COUNT W/AUTO DIFF 2021-12-02 Dinakar, Satis h Muslim 09:59:00 [facility] PROTHROMBIN TIME WITH INR 2021-12-02 Dinakar, Jeremy Method ist 09:59:00 [facility] BASIC METABOLIC PANEL 2021-12-02 Dinakar, Jeremy Muslim 09:59:00 [facility] HEPATIC FUNCTION PANEL 2021-12-02 Dinakar, Jeremy Muslim 09:59:00 [facility] PHOSPHORUS LEVEL 2021-12-02 Dinakar, Jeremy Muslim 09:59:00 [facility] MAGNESIUM LEVEL 2021-12-02 Dinakar, Jeremy Muslim 09:59:00 [facility] ESTIMATED GFR 2021-12-02 Dinakar, Jeremy Muslim 09:59:00 [facility] HC COMPLETE BLD COUNT W/AUTO DIFF 2021-12-01 Dinakar, Satis h Muslim 10:22:00 [facility] PROTHROMBIN TIME WITH INR 2021-12-01 Dinakar, Jeremy Method ist 10:22:00 [facility] BASIC METABOLIC PANEL 2021-12-01 Dinakar, Jeremy Muslim 10:22:00 [facility] HEPATIC FUNCTION PANEL 2021-12-01 Dinakar, Jeremy Muslim 10:22:00 [facility] PHOSPHORUS LEVEL 2021-12-01 Dinakar, Jeremy Muslim 10:22:00 [facility] MAGNESIUM LEVEL 2021-12-01 Dinakar, Jeremy Muslim 10:22:00 [facility] ESTIMATED GFR 2021-12-01 Dinakar, Jeremy Muslim 10:22:00 [facility] SMEAR REVIEW 2021-12-01 Dinakar, Jeremy Muslim 10:22:00 [facility] ESOPHAGOGASTRODUODENOSCOPY (EGD) 2021-11-30 Elias Guzman Muslim 19:49:00 Hospital HC COMPLETE BLD COUNT W/AUTO DIFF 2021-11-30 Dinakar, Satis h Muslim 10:53:00 [facility] PROTHROMBIN TIME WITH INR 2021-11-30 Dinakar, Jeremy Method ist 10:53:00 [facility] BASIC METABOLIC PANEL 2021-11-30 Dinakar, Jeremy Muslim 10:53:00 [facility] HEPATIC FUNCTION PANEL 2021-11-30 Dinakar, Jeremy Muslim 10:53:00 [facility] PHOSPHORUS LEVEL 2021-11-30 Dinakar, Jeremy Muslim 10:53:00 [facility] MAGNESIUM LEVEL 2021-11-30 Dinakar, Jeremy Muslim 10:53:00 [facility] ESTIMATED GFR 2021-11-30 Dinakar, Jeremy Muslim 10:53:00 [facility] SMEAR REVIEW 2021-11-30 Dinakar, Jeremy Muslim 10:53:00 [facility] HC COMPLETE BLD COUNT W/AUTO DIFF 2021-11-29 Dinakar, Jose vallejo Muslim 10:50:00 [facility] PROTHROMBIN TIME WITH INR 2021-11-29 Dinakar, Jeremy Method ist 10:50:00 [facility] BASIC METABOLIC PANEL 2021-11-29 Dinakar, Jeremy Muslim 10:50:00 [facility] HEPATIC FUNCTION PANEL 2021-11-29 Dinakar, Jeremy Muslim 10:50:00 [facility] PHOSPHORUS LEVEL 2021-11-29 Dinakar, Jeremy Muslim 10:50:00 [facility] MAGNESIUM LEVEL 2021-11-29 Dinakar, Jeremy Muslim 10:50:00 [facility] ESTIMATED GFR 2021-11-29 Dinakar, Jeremy Muslim 10:50:00 [facility] SMEAR REVIEW 2021-11-29 Dinakar, Jeremy Muslim 10:50:00 [facility] CBC WITH PLATELET AND DIFFERENTIAL 2021-11-28 Dinakar, Leah stuart Muslim 09:28:00 [facility] PROTHROMBIN TIME WITH INR 2021-11-28 Dinakar, Jeremy Method ist 09:28:00 [facility] BASIC METABOLIC PANEL 2021-11-28 Dinakar, Jeremy Muslim 09:28:00 [facility] HEPATIC FUNCTION PANEL 2021-11-28 Dinakar, Jeremy Muslim 09:28:00 [facility] PHOSPHORUS LEVEL 2021-11-28 Dinakar, Jeremy Muslim 09:28:00 [facility] MAGNESIUM LEVEL 2021-11-28 Dinakar, Jeremy Muslim 09:28:00 [facility] ESTIMATED GFR 2021-11-28 Dinakar, Jeremy Muslim 09:28:00 [facility] OCCULT BLOOD, STOOL 2021-11-27 [facility] Muslim 23:26:00 Hospital XR ABDOMEN 1 VW PORTABLE 2021-11-[address] 20:25:00 [facility] HC COMPLETE BLD COUNT W/AUTO DIFF 2021-11-27 Jaime, Jose vallejo Muslim 09:07:00 [facility] PROTHROMBIN TIME WITH INR 2021-11-27 Jaime, Jeremy Method ist 09:07:00 [facility] BASIC METABOLIC PANEL 2021-11-27 Michelakar, Jeremy Muslim 09:07:00 [facility] HEPATIC FUNCTION PANEL 2021-11-27 Jaime, Jeremy Muslim 09:07:00 [facility] PHOSPHORUS LEVEL 2021-11-27 Dinar, Jeremy Muslim 09:07:00 [facility] MAGNESIUM LEVEL 2021-11-27 Dinar, Jeremy Muslim 09:07:00 [facility] HEMOGLOBIN A1C 2021-11-27 Jaime, Jeremy Muslim 09:07:00 [facility] ESTIMATED GFR 2021-11-27 Jaime, Jeremy Muslim 09:07:00 [facility] SMEAR REVIEW 2021-11-27 Jeremy Sandoval Muslim 09:07:00 [facility] BLOOD CULTURE, AEROBIC & ANAEROBIC 2021-11-27 Leah Sandoval Muslim 04:03:00 [facility] COVID-19 ANTI-SPIKE IGG ANTIBODY 2021-11-27 Jeremy Sandoval Muslim TITER 04:03:00 [facility] COVID-19 SEROLOGY PATIENT 2021-11-27 Jeremy Sandoval Method ist SURVEILLANCE 04:03:00 [facility] CTA ABD/PEL FOR BLEEDING 2021-11-27 [facility] Metho dist 01:38:34 Hospital HEMOGLOBIN & HEMATOCRIT 2021-11-27 [facility] Method ist 01:34:00 Hospital SMEAR REVIEW 2021-11-27 [facility] Muslim 01:34:00 Hospital RESPIRATORY PATHOGEN PANEL WITH 2021-11-27 [facility] Ala Muslim COVID-19 RT-PCR 00:58:00 Hospital TYPE AND SCREEN 2021-11-27 [facility] Muslim 00:30:00 Hospital PROTHROMBIN TIME WITH INR 2021-11-27 [facility] Meth odist 00:30:00 Hospital AMMONIA LEVEL 2021-11-27 [facility] Muslim 00:30:00 Hospital ECG 12-LEAD 2021-11-27 [facility] Muslim 00:29:32 Hospital ECG ED PRELIMINARY INTERPRETATION 2021-11-27 [facility] Muslim 00:04:12 Hospital HC COMPLETE BLD COUNT W/AUTO DIFF 2021-11-26 [facility] Muslim 21:32:00 Hospital COMPREHENSIVE METABOLIC PANEL 2021-11-26 [facility] Muslim 21:32:00 Hospital LIPASE LEVEL 2021-11-26 [facility] Muslim 21:32:00 Hospital HCG QUALITATIVE, SERUM SCREEN 2021-11-26 [facility] Muslim 21:32:00 Hospital ESTIMATED GFR 2021-11-26 Keron Yen-Te Muslim 21:32:00 [facility] SMEAR REVIEW 2021-11-26 Tu, Yen-Te Muslim 21:32:00 [facility] HC COMPLETE BLD COUNT W/AUTO DIFF 2021-10-26 Nakia Cruz Muslim 11:26:00 Hospital PROTHROMBIN TIME WITH INR 2021-10-26 Nakia Cruz Method ist 11:26:00 [facility] BASIC METABOLIC PANEL 2021-10-26 Rafael Arora Muslim 11:26:00 [facility] ESTIMATED GFR 2021-10-26 Andriy Arorae Muslim 11:26:00 [facility] SMEAR REVIEW 2021-10-26 Nakia Cruz Muslim 11:26:00 Hospital HC COMPLETE BLD COUNT W/AUTO DIFF 2021-10-25 Nakia Cruz Muslim 09:30:00 Hospital PROTHROMBIN TIME WITH INR 2021-10-25 Nakia Cruz Method ist 09:30:00 [facility] COMPREHENSIVE METABOLIC PANEL 2021-10-25 Nakia Cruz thodist 09:30:00 Hospital ESTIMATED GFR 2021-10-25 Nakia Cruzist 09:30:00 Hospital MAGNESIUM LEVEL 2021-10-25 Nakia Cruz Muslim 09:30:00 Hospital PHOSPHORUS LEVEL 2021-10-25 Nakia Cruz Muslim 09:30:00 Hospital BILIRUBIN DIRECT 2021-10-25 Nakia Cruz 09:30:00 Hospital SMEAR REVIEW 2021-10-25 Nakia Cruz Muslim 09:30:00 Hospital HC COMPLETE BLD COUNT W/AUTO DIFF 2021-10-24 Nakia Cruz 09:17:00 Hospital PROTHROMBIN TIME WITH INR 2021-10-24 Nakia Cruz Method ist 09:17:00 Hospital COMPREHENSIVE METABOLIC PANEL 2021-10-24 Nakia Cruz thodist 09:17:00 Hospital PHOSPHORUS LEVEL 2021-10-24 Nakia Cruz Muslim 09:17:00 Hospital MAGNESIUM LEVEL 2021-10-24 Nakia Cruz Muslim 09:17:00 Hospital ESTIMATED GFR 2021-10-24 Nakia rCuz Muslim 09:17:00 Hospital SMEAR REVIEW 2021-10-24 Nakia Cruz 09:17:00 Hospital ESOPHAGOGASTRODUODENOSCOPY (EGD) 2021-10-23 Elias Guzman Muslim 17:25:00 Hospital HC COMPLETE BLD COUNT W/AUTO DIFF 2021-10-23 Nakia Cruz 11:38:00 Hospital PROTHROMBIN TIME WITH INR 2021-10-23 Nakia Cruz Method ist 11:38:00 Hospital COMPREHENSIVE METABOLIC PANEL 2021-10-23 Nakia Cruz thodist 11:38:00 Hospital PHOSPHORUS LEVEL 2021-10-23 Nakia Cruz Muslim 11:38:00 Hospital MAGNESIUM LEVEL 2021-10-23 Nakia Cruz Muslim 11:38:00 Hospital ESTIMATED GFR 2021-10-23 Nakia Cruz Muslim 11:38:00 Hospital SMEAR REVIEW 2021-10-23 Nakia Cruz Muslim 11:38:00 Hospital TTE COMPLETE, W CONTRAST, W 2021-10-22 Flores Garcia odist DOPPLER ([id number]) 14:21:00 [facility] HC COMPLETE BLD COUNT W/AUTO DIFF 2021-10-22 Nakia Cruzist 10:31:00 Hospital PROTHROMBIN TIME WITH INR 2021-10-22 Nakia Cruz ist 10:31:00 Hospital COMPREHENSIVE METABOLIC PANEL 2021-10-22 Nakia Cruz thodist 10:31:00 Hospital PHOSPHORUS LEVEL 2021-10-22 Nakia Cruzist 10:31:00 Hospital MAGNESIUM LEVEL 2021-10-22 Nakia Cruz 10:31:00 Hospital THYROID STIMULATING HORMONE 2021-10-22 Nakia Cruz odist 10:31:00 Hospital T4 2021-10-22 Nakia Cruzist 10:31:00 Hospital VITAMIN D 25 HYDROXY LEVEL 2021-10-22 Nakia Cruzo dist 10:31:00 Hospital ALPHA FETOPROTEIN 2021-10-22 Kaylynn Garcia 10:31:00 [facility] ESTIMATED GFR 2021-10-22 Nakia Cruz 10:31:00 [facility] SMEAR REVIEW 2021-10-22 Nakia Cruz 10:31:00 [facility] COVID-19 QUALITATIVE RT-PCR 2021-10-22 Nakia Cruz odist 00:29:00 Hospital URINALYSIS SCREEN AND MICROSCOPY, 2021-10-21 Nakia Cruz WITH REFLEX TO CULTURE 22:46:00 [facility] URINE CULTURE 2021-10-21 Nakia Cruz 22:46:00 [facility] XR ABDOMEN 1 VW PORTABLE 2021-10-[address] 22:35:00 [facility] CT ABDOMEN PELVIS WO CONTRAST 2021-10-21 Nakia rCuz thodist 20:20:30 Hospital HC COMPLETE BLD COUNT W/AUTO DIFF 2021-10-21 Nakia Cruzist 16:31:00 Hospital COMPREHENSIVE METABOLIC PANEL 2021-10-21 Nakia Cruz thodist 16:31:00 Hospital PROTHROMBIN TIME WITH INR 2021-10-21 Nakia Cruz ist 16:31:00 Hospital MAGNESIUM LEVEL 2021-10-21 Nakia Cruzist 16:31:00 Hospital PHOSPHORUS LEVEL 2021-10-21 Nakia Cruzist 16:31:00 Hospital LIPASE LEVEL 2021-10-21 Nakia Cruz 16:31:00 Hospital COVID-19 SEROLOGY PATIENT 2021-10-21 Nakia Cruz ist SURVEILLANCE 16:31:00 Hospital ESTIMATED GFR 2021-10-21 Nakia Cruz Muslim 16:31:00 Hospital COVID-19 ANTI-SPIKE IGG ANTIBODY 2021-10-21 Nakia Cruz TITER 16:31:00 Hospital XR KNEE 3 VW RIGHT 2021-09-29 Skuhdev Soto [place] of 04:06:00 [facility] NOTICE OF PRIVACY PRACTICES 2021-09-29 [facility] 02:46:43 Unassigned, No [facility] CONSENT/REFUSAL FOR DIAGNOSIS AND 2021-09-29 Doctor [place] of TREATMENT 02:46:16 Unassigned, No [facility] XR KNEE 3 VW [facility] 20:10:39 F [facility] CONSENT/REFUSAL FOR DIAGNOSIS AND 2021-04-02 [facility] of TREATMENT 17:59:31 Unassigned, No [facility] ASSIGNMENT OF BENEFITS 2021-03-10 Doctor [facility] y of 20:29:46 Unassigned, No [facility] HC COMPLETE BLD COUNT W/AUTO DIFF 2021-02-20 Kaylynn Suresh 10:53:00 [facility] BASIC METABOLIC PANEL 2021-02-20 Kaylynn Suresh 10:53:00 [facility] HEPATIC FUNCTION PANEL 2021-02-20 Kaylynn Suresh 10:53:00 [facility] MAGNESIUM LEVEL 2021-02-20 Kaylynn Suresh 10:53:00 [facility] PHOSPHORUS LEVEL 2021-02-20 Kaylynn Suresh 10:53:00 [facility] PROTHROMBIN TIME WITH INR 2021-02-20 Rosemary Suresh ist 10:53:00 [facility] ESTIMATED GFR 2021-02-20 MaydaKaylynn Bunn 10:53:00 [facility] SMEAR REVIEW 2021-02-20 Kaylynn Suresh 10:53:00 [facility] MRI CHOLANGIOGRAM WO CONTRAST 2021-02-20 Jeremy Sandoval thodi 00:15:00 [facility] VENIPUNC NEED PHYS SKILL,DX OR RX 2021-02-19 Latanya Ring Muslim 16:10:21 Hospital HC COMPLETE BLD COUNT W/AUTO DIFF 2021-02-19 Kaylynn Suresh 11:00:00 [facility] BASIC METABOLIC PANEL 2021-02-19 Kaylynn Suresh 11:00:00 [facility] HEPATIC FUNCTION PANEL 2021-02-19 Kaylynn Suresh 11:00:00 [facility] MAGNESIUM LEVEL 2021-02-19 Kaylynn Suresh 11:00:00 [facility] PHOSPHORUS LEVEL 2021-02-19 Kaylynn Suresh 11:00:00 [facility] PROTHROMBIN TIME WITH INR 2021-02-19 Rosemary Suresh ist 11:00:00 [facility] ESTIMATED GFR 2021-02-19 Kaylynn Suresh 11:00:00 [facility] SMEAR REVIEW 2021-02-19 Kaylynn Suresh 11:00:[address] [facility] [address] ABDOMEN PELVIS WO CONTRAST 2021-02-19 Me Demetrice thodist 03:25:00 [facility] URINALYSIS SCREEN AND MICROSCOPY, 2021-02-19 Kaylynn Suresh WITH REFLEX TO CULTURE 02:27:00 [facility] URINE CULTURE 2021-02-19 Kaylynn Suresh 02:27:00 [facility] TYPE AND SCREEN 2021-02-18 Dre Mayer 23:25:00 [facility] BLOOD CULTURE, AEROBIC & ANAEROBIC 2021-02-18 Kaylynn Suresh 23:25:00 [facility] COVID-19 SEROLOGY PATIENT 2021-02-18 Rosemary Suresh ist SURVEILLANCE 22:57:00 [facility] HC COMPLETE BLD COUNT W/AUTO DIFF 2021-02-18 Kaylynn Suresh 22:57:00 [facility] PROTHROMBIN TIME WITH INR 2021-02-18 Rosemary Suresh ist 22:57:00 [facility] COMPREHENSIVE METABOLIC PANEL 2021-02-18 Me Demetrice thodist 22:57:00 [facility] LACTIC ACID LEVEL 2021-02-18 Kaylynn Suresh 22:57:00 [facility] MAGNESIUM LEVEL 2021-02-18 Kaylynn Suresh 22:57:00 [facility] PHOSPHORUS LEVEL 2021-02-18 Kaylynn Suresh 22:57:00 [facility] LIPASE LEVEL 2021-02-18 Kaylynn Suresh 22:57:00 [facility] ESTIMATED GFR 2021-02-18 Kaylynn Suresh 22:57:00 [facility] SMEAR REVIEW 2021-02-18 Kaylynn Suresh 22:57:00 [facility] COVID-19 ANTI-SPIKE IGG ANTIBODY 2021-02-18 Kaylynn Suresh TITER 22:57:00 [facility] PHOSPHORUS 2020-10-03 Brenda Teixeira of 08:52:00 [facility] MAGNESIUM 2020-10-03 Kim Teixeiraherine [place] of 08:52:00 [facility] COMP. METABOLIC PANEL ([id number]) 2020-10-03 Brenda Teixeira Un iversity of 08:52:00 [facility] CBC WITH DIFF 2020-10-03 Brenda Teixeira of 08:52:00 [facility] COMP. METABOLIC PANEL ([id number]) 2020-10-02 Brenda Teixeira Un iversity of 08:39:00 [facility] CBC WITH DIFF 2020-10-02 Brenda Teixeira of 08:39:00 [facility] US DUPLEX VENOUS ARM LEFT - BY 2020-10-01 Brenda Teixeira [facility] of VASCULAR LAB 16:22:58 [facility] COMP. METABOLIC PANEL ([id number]) 2020-10-01 Tomasa Rucker Un iversity of 07:45:00 [facility] CBC WITH DIFF 2020-10-01 Tomasa Rucker of 07:45:00 [facility] TROPONIN I 2020-09-30 [facility] of 10:56:00 [facility] COMP. METABOLIC PANEL ([id number]) 2020-09-30 Shaina Pinto Un iversity of 10:56:00 [facility] CBC WITH DIFF 2020-09-30 Shaina Pinto of 10:56:00 [facility] N-TERMINAL PRO-BNP 2020-09-30 Shaina Pinto of 08:05:00 [facility] OCCULT (GUAIAC) BLOOD 2020-09-30 [facility] FECAL LEUKOCYTES 2020-09-30 [facility] 02:10[facility]00 [facility] CLOSTRIDIUM DIFFICILE TOXIN 2020-09-30 Alisha [facility] ersity of 02:10:00 [facility] FECAL PATHOGENS BY PCR 2020-09-30 Alisha [facility] y of 02:10:00 [facility] POCT GLUCOSE (AUTOMATED) 2020-09-30 Rene Evans [facility] sity of 00:35:00 [facility] BASIC METABOLIC PANEL (NA, K, CL, 2020-09-29 Shaina Pinto [place] of CO2, GLUCOSE, BUN, CREATININE, CA) 21:11:00 [facility] HEMOGLOBIN 2020-09-29 Tomasa Rucker [place] of 21:11:00 [facility] TRANSTHORACIC ECHO (TTE) COMPLETE 2020-09-29 Marco Levy [place] of 16:03:00 [facility] HB ECG ROUTINE & RHYTHM STRIP 2020-09-29 Shaina Pinto iversity of 11:18:58 [facility] OSMOLALITY URINE 2020-09-29 Alisha [facility] of 08:56:00 [facility] URINE CULTURE 2020-09-29 [facility] [facility] of 08:56:00 [facility] SODIUM, URINE RANDOM 2020-09-29 [facility] of 08:56:00 [facility] PROTEIN CREAT RATIO URINE RANDOM 2020-09-29 [facility] of 08:56:00 [facility] BLOOD CULTURE SCREEN 2020-09-29 [facility] of 08:32:00 [facility] LACTIC ACID WHOLE BLOOD 2020-09-29 Shaina Pinto [facility] ty of 08:32:00 [facility] VITAMIN B12, LEVEL 2020-09-29 Shaina Pinto [place] of 08:31:00 [facility] C-REACTIVE PROTEIN 2020-09-29 [facility] IRON PANEL 2020-09-29 [facility] of 08:31:00 [facility] SEDIMENTATION RATE 2020-09-29 [facility] 08:31[facility]00 [facility] DIFF CONSULT INTERPRETATION 2020-09-29 Shaina Pinto [facility] ersity of 08:31:00 [facility] CBC WITH DIFF 2020-09-29 [facility] of 08:31:00 [facility] PROTHROMBIN TIME / INR 2020-09-29 [facility] of 08:31:00 [facility] N-TERMINAL PRO-BNP 2020-09-29 [facility] of 08:31:00 [facility] VITAMIN D, 25-OH 2020-09-29 [facility] of 08:31:00 [facility] PROCALCITONIN 2020-09-29 [facility] of 08:31:00 [facility] COVID-19 (ID NOW RAPID TESTING) 2020-09-29 Rene Evans [place] of 05:10:00 [facility] LAB ONLY COVID INTERPRETATION 2020-09-29 Rene Evans [facility] of 05:10:00 [facility] CT ABDOMEN PELVIS W CONTRAST 2020-09-29 Rene Evans Un iversity of 04:56:31 [facility] URINALYSIS 2020-09-29 Rene Evans [place] of 04:19:00 [facility] PHOSPHORUS 2020-09-29 [facility] 03:54:00 [facility] CREATINE KINASE 2020-09-29 Shaina Pinto [place] of 03:54:00 [facility] URIC ACID 2020-09-29 [facility] 03:54:00 [facility] LIPASE 2020-09-29 Rene Evans [place] of 03:54:00 [facility] MAGNESIUM 2020-09-29 [facility] of 03:54:00 [facility] FERRITIN SERUM 2020-09-29 [facility] of 03:54:00 [facility] TROPONIN I 2020-09-29 Marco Levy [place] of 03:54:00 [facility] THYROID STIMULATING HORMONE 2020-09-29 Shaina Pinto [facility] ersity of 03:54:00 [facility] COMP. METABOLIC PANEL ([id number]) 2020-09-29 Rene Evans [facility] of 03:54:00 [facility] LIPID PANEL ([id number])(TOTAL 2020-09-29 Shaina Pintoer sity of CHOLESTEROL, TRIGLYCERIDES, HDL) 03:54:00 [facility] CBC WITH DIFF 2020-09-29 Rene Evans [facility] of 03:54:00 [facility] GLYCOSYLATED HEMOGLOBIN (A1C) 2020-09-29 Shaina Pinto [facility] of 03:54:00 [facility] N-TERMINAL PRO-BNP 2020-09-29 Shaina Pinto [place] of 03:54:00 [facility] CONSENT/REFUSAL FOR DIAGNOSIS AND 2020-09-29 Doctor [place] of TREATMENT 03:18:51 Unassigned, No [facility] NOTICE OF PRIVACY PRACTICES 2020-09-29 Doctor [facility] ersity of 03:18:30 Unassigned, No [facility] CT ABDOMEN PELVIS W CONTRAST 2019-08-11 Corby Ca Uni versity of 14:50:46 [facility] COMP. METABOLIC PANEL ([id number]) 2019-08-11 Shaina Pinto iversity of 08:00:00 [facility] CBC WITH DIFFERENTIAL 2019-08-11 Shaina Pinto of 08:00:00 [facility] CBC WITH DIFFERENTIAL 2019-08-11 Shaina Pinto [place] of 08:00:00 [facility] XR SMALL BOWEL SERIES 2019-08-10 Valente Piña of 21:18:47 [facility] XR ABDOMEN 1 VW 2019-08-10 Shaina Pinto of 11:52:39 [facility] PHOSPHORUS 2019-08-10 Shaina Pinto [place] of 11:11:00 [facility] CREATINE KINASE 2019-08-10 Shaina Pinto [place] of 11:11:00 [facility] AMYLASE 2019-08-10 Shaina Pinto [place] of 11:11:00 [facility] LIPASE 2019-08-10 Shaina Pinto [place] of 11:11:00 [facility] MAGNESIUM 2019-08-10 Shaian Pinto [place] of 11:11:00 [facility] TEST, SERUM 2019-08-10 Shaina Pinto [place] of 11:11:00 [facility] THYROID STIMULATING HORMONE 2019-08-10 Shaina Pinto Univ ersity of 11:11:00 [facility] COMP. METABOLIC PANEL ([id number]) 2019-08-10 Shaina Pinto Un iversity of 11:11:00 [facility] LIPID PANEL ([id number])(TOTAL 2019-08-10 AlishaShaina Univer sity of CHOLESTEROL, TRIGLYCERIDES, HDL) 11:11:00 [facility] SEDIMENTATION RATE 2019-08-10 [facility] of 11:11:00 [facility] CBC WITH DIFFERENTIAL 2019-08-10 [facility] of 11:11:00 [facility] GLYCOSYLATED HEMOGLOBIN (A1C) 2019-08-10 Shaina Pinto Un iversity of 11:11:00 [facility] PROTHROMBIN TIME / INR 2019-08-10 [facility] 11:11:00 [facility] CORONAVIRUS COVID-19 TESTING 2019-08-10 AlishaShaina Uni versity of 09:04:00 [facility] Plan of Care Planned Activity Planned Date Details Comments Source Future Scheduled 2021-12-09 Pneumococcal Vaccine: [facility] Test 13:56:39 Pediatrics (0 to 5 Years) and At-Risk Patients (6 to 64 Years) (1 - PCV) [code = Pneumococcal Vaccine: Pediatrics (0 to 5 Years) and At-Risk Patients (6 to 64 Years) (1 - PCV)] Future Scheduled 2021-12-09 Hepatitis C screening [facility] Test 13:56:39 (procedure) [code = 154287098] Future Scheduled 2021-12-09 Screening for [facility] Test 13:56:39 malignant neoplasm of cervix (procedure) [code = 774491374] Future Scheduled 2021-12-09 BREAST CANCER [facility] Test 13:56:39 SCREENING [code = BREAST CANCER SCREENING] Future Scheduled 2021-12-09 COLONOSCOPY SCREENING [facility] Test 13:56:39 [code = COLONOSCOPY SCREENING] Future Scheduled 2021-12-09 SHINGLES VACCINES (1 [facility] Test 13:56:39 of 2) [code = SHINGLES VACCINES (1 of 2)] Future Scheduled 2021-12-09 COVID-19 VACCINE (3 - [facility] Test 13:56:39 Booster for Moderna series) [code = COVID-19 VACCINE (3 - Booster for Moderna series)] Future Scheduled 2021-12-09 HEPATITIS B VACCINES [facility] Test 13:56:39 (1 of 3 - Risk 3-dose series) [code = HEPATITIS B VACCINES (1 of 3 - Risk 3-dose series)] Future Scheduled 2021-12-09 INFLUENZA VACCINE Method [facility] Test 13:56:39 [code = INFLUENZA VACCINE] Encounters Start End Encounter Admission Attending Care Care Encounter Source Date/Time Date/Time Type Type Clinicians Facility Department ID 2021-10-13 Outpatient Kattegummul STLMLC STLMLC [id number] - Common 14:25:01 a, Madhu [facility] 2021-05-06 Outpatient Kattegummul STLMLC STLMLC [id number] - Common 14:30:56 a, Madhu [facility] 2021-05-06 Outpatient Kattegummul STLMLC STLMLC [id number] - Common 14:26:04 a, Madhu 63248 [facility] 2021-05-06 Outpatient Kattegummul STLMLC STLMLC [id number] - Common 14:05:28 a, Madhu 23920 [facility] 2021-05-06 Outpatient Kattegummul STLMLC STLMLC [id number] - Common 13:37:29 a, Madhu 55726 [facility] 2021-05-06 Outpatient [place], STLMLC STLMLC [id number] Common 13:36:02 Annalise 91154 [facility] 2021-05-06 Outpatient [place], STLMLC STLMLC [id number] Common 11:25:36 Annalise [id number] [facility] 2021-02-09 Emergency [facility] [id number] Univers [facility]-11-26 2021-12-03 [facility] Jefferson Skelton 1.2.840.1 [id number] Methodi 16:08:00 14:06:00 Encounter Jeremy Sandoval 22499.1.[address] Willian Garcia 3.430.2.7 Hospita Nakia Cruz .3.300409 l .8 2021-11-26 2021-12-03 Inpatient NAKIA CRUZ [facility] [id number] Gause 00:00:00 00:00:[address] 2021-11-30 2021-11-30 Anesthesia Mahnaz Trujillo 1.2.840.1 [id number] Methodi 14:50:00 15:11:00 Event Feng Burgos 17392.1.[address] 3.430.2.7 Hospit a .3.443132 l .8 2021-11-30 2021-11-30 Surgery Duchini, 1.2.840.1 [id number] Methodi 14:30:00 15:00:[address] 3.430.2.7 Hospit a .3.117462 l .8 2021-10-21 2021-10-26 [facility] Sharita Suresh 1.2.840.1 [id number] Methodi 09:04:00 14:43:00 Encounter Nakia Cruz 63407.1.[address] Rafael Arora 3.430.2.7 Hospita .3.813036 l .8 2021-10-21 2021-10-26 Inpatient RAFAEL ARORA [facility] [id number] Gause 00:00:00 00:00:[address] 2021-10-23 2021-10-23 Surgery Duchini, 1.2.840.1 [id number] Methodi 12:30:00 13:30:[address] 3.430.2.7 Hospit a .3.366478 l .8 2021-10-23 2021-10-23 Anesthesia Aziza Cordero 1.2.840.1 [id number] Methodi 12:25:00 12:53:[address] 3.430.2.7 Hospit a .3.390297 l .8 2021-10-21 2021-10-21 Travel 1.2.840.1 1.2.768.166 [id number] [id number] Methodi 00:00:00 00:00:[address] 3.430.2.7 0.2.7.3.698 Ho spita .3.947622 084.8 l .8 2021-09-28 2021-09-29 Emergency X Sukhdev SOTO [facility] ERT [id number] Univers 22:03:00 00:15:00 ity [facility] 2021-09-28 2021-09-29 Emergency Sukhdev Soto [facility] 1.2.840.114 [id number] Univers 22:03:00 00:15:00 Mary WHITT 350.1.13.10 i ty of [place] 4.2.7.2.686 [facility] [phone] [facility] 084 Branch 2021-09-28 2021-09-28 Orders Doctor VERONIQUE 1.2.840.114 [id number] Univers 00:00:00 00:00:00 Only Unassigned, GONZALO 350.1.13.10 ity of [place] [facility] 4.2.7.2.686 Quang as [id number] [facility] 009 Branch 2021-04-07 2021-04-07 Letter Orthopedic [facility] 1.2.840.114 [id number] Univers 00:00:00 00:00:00 (Out) Clinic SPECIALTY 350.1.13.10 ity of CARE 4.2.7.2.686 [facility] AT [phone] Nh pritesh PATINO 198 [facility] 2021-04-02 2021-04-02 Emergency X BEATRIZ [facility] ERT [id number] Univers 12:58:00 15:25:00 SILVIOO ity [facility] 2021-04-02 2021-04-02 Emergency Beatriz [facility] 1.2.840.114 [id number] Univers 12:58:00 15:25:00 Azalea F [place] 350.1.13.10 ity of [place]2.[place] [phone] [facility] 084 Branch 2021-03-11 2021-03-11 Telephone VERONIQUE Cruz 1.2.336.276 [id number] Univers 00:00:00 00:00:00 Frances GONZALO 350.1.13.10 it y of [facility] 4.2.7.2.686 Quang as [phone] [facility] 019 Branch 2021-03-10 2021-03-10 Outpatient R NETTIE [facility] [id number] Univers 14:45:00 14:51:40 LEXIE ity [facility] 2021-03-10 2021-03-10 Outpatient R [facility] [id number] -[id number] Univers 14:45:00 14:45:00 [id number] ity [facility] 2021-03-10 2021-03-10 Laboratory Only, Ang Db Test [facility] 1.2.8 40.114 [id number] Univers 14:29:53 14:44:53 Only Unknown, Attending HEALTH 350.1.13.10 ity of [place] 4.2.7.2.686 Quang as MARINA?BLEA [phone] [address] MEDICAL OFFICE BUILDING 2021-03-10 2021-03-10 Orders Doctor VERONIQUE 1.2.840.114 [id number] Univers 00:00:00 00:00:00 Only Unassigned, GONZALO 350.1.13.10 ity of [place] [facility] 4.2.7.2.686 Quang as [phone] [facility] 009 Branch 2021-02-18 2021-02-20 [facility] Sharita Suresh 1.2.840.1 [id number] Methodi 15:45:00 14:08:00 Encounter Jeremy Sandoval 18132.1.[address] 3.430.2.7 Hospit a .3.273083 l .8 2021-02-18 2021-02-20 Inpatient JAIME [facility] [id number] Gause 00:00:00 00:00:00 JEREMY [address] 2021-02-03 2021-02-04 Emergency X [facility] ERT [id number] Univers 21:10:00 03:21:00 GARTH ity of [facility] 2020-10-21 2020-10-27 Inpatient SYLVIA [facility] [id number] Gause 00:00:00 00:00:[address]TH [address] 2020-10-06 2020-10-06 Transition Yelena Taylorli 1.2.840.114 [id number] Univers 00:00:00 00:00:00 of Care Madiha Sotelo 350.1.13.10 i ty of [place]2.7.2.[place] [id number] [facility] 403 Branch 2020-09-28 2020-10-03 Hospital Rene Evans [facility] 1.2.840. 114 [id number] Univers 22:23:00 13:05:00 Encounter Shaina Pinto 350.1.13.10 ity of [place].7.2.686 [place] [id number] [facility] 081 Branch 2020-09-28 2020-09-28 Orders Doctor VERONIQUE 1.2.840.114 [id number] Univers 00:00:00 00:00:00 Only Unassigned, GONZALO 350.1.13.10 ity of [place] [facility] 4.2.7.2.686 Quang as [id number] [facility] 009 Branch 2020-09-09 2020-09-12 Inpatient NAKIA CRUZ [facility] [id number] Gause 00:00:00 00:00:00 462 Method i 2020-08-08 2020-08-08 Outpatient Sami GERMAN [facility] [id number] Univers 15:40:00 15:40:00 TERRI ity of [facility] 2020-07-11 2020-07-11 Outpatient [facility] [id number] Univers 15:40:00 15:40:00 ity of [facility] 2020-06-09 2020-06-22 Inpatient NAKIA CRUZ [facility] [id number] Gause 00:00:00 00:00:00 836 Method i 2020-03-19 2020-03-23 Inpatient DINAKAR, [facility] [id number] Gause 00:00:00 00:00:00 JEREMY 742 Method i 2020-03-14 2020-03-18 Inpatient DINAKAR, [facility] [id number] Gause 00:00:00 00:00:00 JEREMY 157 Method i 2020-02-13 2020-02-13 Laboratory Lab, [facility] [place] 1.2.840.114 [id number] 10:22:10 10:42:10 Only Fam Pob I Health 350.1.13.10 [place] 4.2.7.2.686 Professio [id number] nal 044 Office Building [facility] 2020-02-13 2020-02-13 Laboratory Lab, [facility] Fam Pob I [facility] 1.2. 840.114 [id number] [facility] 10:22:10 10:42:10 Only Dulce [facility] 350.1.13.10 ity of [place] 4.2.7.2.686 Quang as Professio [phone] Nh dical nal 044 Branch Office Building One 2019-09-28 2019-09-28 Outpatient [facility] [id number] Common 09:00:00 09:00:00 t Bone Bone [facility] Sp[facility] t [facility] 2019-09-18 2019-09-18 Outpatient [facility] [id number] Common 09:30:00 09:30:00 t Bone Bone [facility] Spiri t and Joint [facility] 2019-08-14 2019-08-14 Transition Nasrin, Shearn 1.2.840.114 [id number] 00:00:00 00:00:00 of Care Jovanny Coopery 350.1.13.10 [place] 4.2.7.2.686 [id number] [facility] 2019-08-14 2019-08-14 Transition Nasrin, Shearn 1.2.840.114 [id number] [facility] 00:00:00 00:00:00 of Care Jovanny Coopery 350.1.13.10 ity of [place] 4.2.7.2.686 [facility] [phone] [place] [address] Branch 2019-08-10 2019-08-11 [facility] 1.2.238.548 [id number] 02:55:00 16:09:00 Encounter Shaina Whitt 350.1.13.10 [place] 4.2.7.2.686 [place] [id number] 081 2019-08-10 2019-08-11 Inpatient U [facility] [id number] Univers 02:55:00 16:09:00 ADNAN ity [facility] 2019-08-10 2019-08-11 [facility] 1.2.893.162 [id number] [facility] 02:55:00 16:09:00 Encounter Shaina Whitt 350.1.13.10 [place] 4.2.7.2.686 [facility] [id number] [address] Results Test Description Test Time Test Comments Results Result Comments Source ECG 12 lead 2021-11-27 13:24:41 Test Item Value Reference Range Interpretation Comme nts Ventricular rate (test code = 253) Atrial rate (test code = 255) [place] interval (test code = 266) QRSD interval (test code = 260) QT interval (test code = 264) QTC interval (test code = 265) P axis 1 (test code = 267) QRS axis 1 (test code = 268) T wave axis (test code = 270) EKG impression (test code = 273) Normal sinus rhythm-Right bundle b ranch [facility] Interpretation - Not an [id number] 00:04:12 Test Item Value Reference Range Interpretation Comments SNOW (test code = SNOW) Jefferson Skelton MD 12/04/2021 11:12 [facility] ED Preliminary Interpretation - Not an OrderPerformed by: Jefferson Skelton MDAuthorized by: Jefferson Skelton MD ECG reviewed by ED Physician in the absence of a 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 Kaylynn CastroARS-CoV-2 (COVID-19) RNA [Presence] in Respiratory specimen by HELENA with probe [id number] 00:33:54 Test Item Value Reference Range Interpretation Comments SARS-CoV-2 (COVID-19) RNA Not detected [Presence] in Respiratory specimen by HELENA with probe detection (test code = 62125-7) 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 employed in a Unknown healthcare setting (test code = 11454-3) Whether the patient has symptoms Unknown related to condition of interest (test code = 89146-3) Whether the patient was Unknown hospitalized for condition of interest (test code = 46294-1) Whether the patient was admitted Unknown to intensive care unit (ICU) for condition of interest (test code = 07870-4) Whether patient resides in a Unknown congregate care setting (test code = 13362-3) status (test code = Unknown 46671-4) Date and time of symptom onset Unknown (test code = 42149-2) [id number] 09:34:08 Test Item Value Reference Range Interpretation Comments MAGNESIUM (test code = 1643292685) 1.4 mg/dL 1.7-2.4 L Lab Interpretation (test code = Abnormal 37434-2) [facility]. METABOLIC PANEL (65516)2020-10-03 09:33:48 Test Item Value Reference Range Interpretation Comments NA (test code = 136 mmol/L 135-145 9552637575) K (test code = 3.3 mmol/L 3.5-5.0 L 4293907243) CL (test code = 100 mmol/L 98-108 4763645628) CO2 TOTAL (test code = 33 mmol/L 23-31 H 0952851527) AGAP (test code = 2-16 3611953613) BUN (test code = 3 mg/dL 7-23 L 4682765314) GLUCOSE (test code = 95 mg/dL 70-110 5531921130) CREATININE (test code = 0.47 mg/dL 0.50-1.04 L 0656281693) TOTAL BILI (test code = 1.5 mg/dL 0.1-1.1 H 0518951090) CALCIUM (test code = 8.1 mg/dL 8.6-10.6 L 3776908615) T PROTEIN (test code = 5.9 g/dL 6.3-8.2 L 1643192663) ALBUMIN (test code = 2.9 g/dL 3.5-5.0 L 4085809632) ALK PHOS (test code = 115 U/L 34-122 0834814203) ALTv (test code = 24 U/L 5-35 1742-6) AST(SGOT) (test code = 35 U/L 13-40 1097251929) eGFR (test code = mL/min/1.73m2 8398871669) SNOW (test code = SNOW) Association of [...] tests). Lab Interpretation Abnormal (test code = 86590-3) [facility] Test Item Value Reference Range Interpretation Comments PHOSPHORUS (test code = 9374740525) 2.8 mg/dL 2.5-5.0 Lab Interpretation (test code = Normal 95055-5) [facility] [id number] 09:31:46 Test Item Value Reference Range Interpretation [...] (test code = 53.8 fL 39.0-49.9 H 05927-4) RDW-CV (test code = 19.9 % 12.0-15.5 H 788-0) PLT (test code = See_Comment L [Automated 777-3) message] The sy stem which generated this result transmitted reference range : 166 - 358 10*3/ ?L. The reference r davi was not used to interpret this result as normal/abnormal . MPV (test code = 10.9 fL 9.5-12.9 91081-4) IPF % (test code = 3.6 % 1.3-7.7 Platelet count 8804688087) measured by fluorescence method. NRBC/100 WBC (test See_Comment [Automat ed code = 4606409510) message] The system which generated this result transmitted reference range : 0.0 - 10.0 /100 WBCs. The refer ence range was not u sed to interpret th is result as normal/abnormal . NRBC x10^3 (test code See_Comment [Auto mated = 1921964693) message] The s ystem which generated this result transmitted reference range : 10*3/?L. The reference range was not used to interpret this result as normal/abnormal . GRAN MAT (NEUT) % 68.1 % (test code = 770-8) IMM GRAN % (test code 1.10 % = 8420065714) LYMPH % (test code = 15.5 % 736-9) MONO % (test code = 11.3 % 5905-5) EOS % (test code = 3.4 % 713-8) BASO % (test code = 0.6 % 706-2) GRAN MAT x10^3(ANC) 2.42 10*3/uL 1.88-7.09 (test code = 0732253379) IMM GRAN x10^3 (test 0.04 10*3/uL 0.00-0.06 code = 8838528969) LYMPH x10^3 (test code 0.55 10*3/uL 1.32-3.29 L = 731-0) MONO x10^3 (test code 0.40 10*3/uL 0.33-0.92 = 742-7) EOS x10^3 (test code = 0.12 10*3/uL 0.03-0.39 711-2) BASO x10^3 (test code <0.03 0.01-0.07 = 704-7) Lab Interpretation Abnormal (test code = 89605-8) [facility] WITH [id number] 10:47:09 Test Item Value Reference Range Interpretation [...] (test code = 52.2 fL 39.0-49.9 H 75721-0) RDW-CV (test code = 18.6 % 12.0-15.5 H 788-0) PLT (test code = See_Comment L [Automated 777-3) message] The sy stem which generated this result transmitted reference range : 166 - 358 10*3/ ?L. The reference r davi was not used to interpret this result as normal/abnormal . MPV (test code = 10.1 fL 9.5-12.9 47319-3) IPF % (test code = 3.2 % 1.3-7.7 Platelet count 8602330324) measured by fluorescence method. NRBC/100 WBC (test See_Comment [Automat ed code = 6534379590) message] The system which generated this result transmitted reference range : 0.0 - 10.0 /100 WBCs. The refer ence range was not u sed to interpret th is result as normal/abnormal . NRBC x10^3 (test code See_Comment [Auto mated = 9022372317) message] The s ystem which generated this result transmitted reference range : 10*3/?L. The reference range was not used to interpret this result as normal/abnormal . GRAN MAT (NEUT) % 65.1 % (test code = 770-8) IMM GRAN % (test code 1.20 % = 9707386911) LYMPH % (test code = 16.9 % 736-9) MONO % (test code = 11.5 % 5905-5) EOS % (test code = 4.5 % 713-8) BASO % (test code = 0.8 % 706-2) GRAN MAT x10^3(ANC) 1.58 10*3/uL 1.88-7.09 L (test code = 6404787331) IMM GRAN x10^3 (test 0.03 10*3/uL 0.00-0.06 code = 5232861193) LYMPH x10^3 (test code 0.41 10*3/uL 1.32-3.29 L = 731-0) MONO x10^3 (test code 0.28 10*3/uL 0.33-0.92 L = 742-7) EOS x10^3 (test code = 0.11 10*3/uL 0.03-0.39 711-2) BASO x10^3 (test code <0.03 0.01-0.07 = 704-7) POLYCHROMASIA (test 2+ See_Comment [Automa josemanuel code = 04974-3) message] The system which generated this result transmitted reference range : 2+. The referen ce range was not u sed to interpret th is result as normal/abnormal . LG GRAN LYMPHS (test Rare Rare code = 9637762152) Lab Interpretation Abnormal (test code = 40218-8) [facility]. METABOLIC PANEL (09868)2020-10-02 10:19:28 Test Item Value Reference Range Interpretation Comments NA (test code = 135 mmol/L 135-145 5933817648) K (test code = 3.4 mmol/L 3.5-5.0 L 5998856628) CL (test code = 104 mmol/L 98-108 2895025615) CO2 TOTAL (test code = 27 mmol/L 23-31 2301303698) AGAP (test code = 2-16 1202430824) BUN (test code = 4 mg/dL 7-23 L 5057431139) GLUCOSE (test code = 97 mg/dL 70-110 4503287837) CREATININE (test code = 0.45 mg/dL 0.50-1.04 L 1314387049) TOTAL BILI (test code = 1.7 mg/dL 0.1-1.1 H 2551179284) CALCIUM (test code = 8.2 mg/dL 8.6-10.6 L 6282731669) T PROTEIN (test code = 6.0 g/dL 6.3-8.2 L 7172748958) ALBUMIN (test code = 3.1 g/dL 3.5-5.0 L 2812906402) ALK PHOS (test code = 120 U/L 34-122 3259995041) ALTv (test code = 26 U/L 5-35 1742-6) AST(SGOT) (test code = 39 U/L 13-40 5610030587) eGFR (test code = mL/min/1.73m2 8710242553) SNOW (test code = SNOW) Association of [...] tests). Lab Interpretation Abnormal (test code = 19225-7) [facility] ONLY COVID [id number] 02:50:27COVID DMT InterpretationInterpretation/Recommendations: Molecular NAAT Tests for [...] COVID-19 testing the patient has had at [facility], including molecular NAAT testing (more commonly known as PCR testing and Rapid ID Now testing) and antibody testing. It does not take into account any testingthat a patient has had outside of the [facility] medical record. [facility] LABORATORY SERVICESCOVID [id number] NAAT (no units) ? ? Date ? Value ? 02/13/2020 ? Not Detected ? SARS-CoV-2 Rapid ID NOW (no units) ? ? Date ? Value ? 09/29/2020 ? Not Detected ? ? ? 08/10/2019 ? Not Detected ? [facility] LABORAT[facility] WITH [id number] 10:31:29 Test Item Value Reference Range Interpretation [...] (test code = 52.3 fL 39.0-49.9 H 32951-5) RDW-CV (test code = 18.4 % 12.0-15.5 H 788-0) PLT (test code = See_Comment LL [Automated 777-3) message] The sy stem which generated this result transmitted reference range : 166 - 358 10*3/ ?L. The reference r davi was not used to interpret this result as normal/abnormal . MPV (test code = 11.2 fL 9.5-12.9 26457-9) IPF % (test code = 3.9 % 1.3-7.7 Platelet count 5510434680) measured by fluorescence method. NRBC/100 WBC (test See_Comment [Automat ed code = 7831097882) message] The system which generated this result transmitted reference range : 0.0 - 10.0 /100 WBCs. The refer ence range was not u sed to interpret th is result as normal/abnormal . NRBC x10^3 (test code <0.01 See_Comment [Auto mated = 8865382549) message] The s ystem which generated this result transmitted reference range : 10*3/?L. The reference range was not used to interpret this result as normal/abnormal . GRAN MAT (NEUT) % 57.5 % (test code = 770-8) IMM GRAN % (test code 0.50 % = 5806808308) LYMPH % (test code = 20.7 % 736-9) MONO % (test code = 13.3 % 5905-5) EOS % (test code = 6.9 % 713-8) BASO % (test code = 1.1 % 706-2) GRAN MAT x10^3(ANC) 1.08 10*3/uL 1.88-7.09 L (test code = 6393939182) IMM GRAN x10^3 (test <0.03 0.00-0.06 code = 4002544260) LYMPH x10^3 (test code 0.39 10*3/uL 1.32-3.29 L = 731-0) MONO x10^3 (test code 0.25 10*3/uL 0.33-0.92 L = 742-7) EOS x10^3 (test code = 0.13 10*3/uL 0.03-0.39 711-2) BASO x10^3 (test code <0.03 0.01-0.07 = 704-7) BASO STIPPLING (test Present A code = 703-9) ELLIPTO/OVAL (test 2+ See_Comment A [Automat ed code = 04199-9) message] The system which generated this result transmitted reference range : (none). The reference range was not used to interpret this result as normal/abnormal . POLYCHROMASIA (test 2+ See_Comment [Automa josemanuel code = 92387-5) message] The system which generated this result transmitted reference range : 2+. The referen ce range was not u sed to interpret th is result as normal/abnormal . Lab Interpretation Abnormal (test code = 49095-7) [facility] (03063)2020-10-01 09:19:22 Test Item Value Reference Range Interpretation Comments NA (test code = 135 mmol/L 135-145 2425976449) K (test code = 4.0 mmol/L 3.5-5.0 5715454747) CL (test code = 107 mmol/L 98-108 2964799988) CO2 TOTAL (test code = 24 mmol/L 23-31 3654427606) AGAP (test code = 2-16 6484836992) BUN (test code = 7 mg/dL 7-23 3581239036) GLUCOSE (test code = 93 mg/dL 70-110 1799326050) CREATININE (test code = 0.47 mg/dL 0.50-1.04 L 3157773710) TOTAL BILI (test code = 1.6 mg/dL 0.1-1.1 H 3587247567) CALCIUM (test code = 8.1 mg/dL 8.6-10.6 L 2857335025) T PROTEIN (test code = 5.8 g/dL 6.3-8.2 L 3294167495) ALBUMIN (test code = 2.8 g/dL 3.5-5.0 L 1669001634) ALK PHOS (test code = 106 U/L 34-122 9666886676) ALTv (test code = 23 U/L 5-35 1742-6) AST(SGOT) (test code = 39 U/L 13-40 2934742728) eGFR (test code = mL/min/1.73m2 4022892448) SNOW (test code = SNOW) Association of [...] tests). Lab Interpretation Abnormal (test code = 93305-4) [facility] [id number] 20:47:45 Test Item Value Reference Range Interpretation Comments TROPONIN I (test 0.002 ng/mL See_Comment [Automated code = 3356722652) message] The system which generated this result [...] ? Lab Interpretation Normal (test code = 05637-1) [facility] [id number] 19:11:57 Test Item Value Reference Range Interpretation Comments URINE CULTURE (test code <10,000 CFU/mL = 630-4) Gram-Positive Cocci [facility] BY [id number] 18:17:03 Test Item Value Reference Range Interpretation Comments Campylobacter (jejuni, Negative Negative, coli and upsaliensis) Indeterminate, (test code = 20034-4) See comment Plesiomonas shigelloides Negative Negative, (test code = 96146-2) Indeterminate, See comment Salmonella (test code = Negative Negative, 84969-3) Indeterminate, See comment Yersinia enterocolitica Negative Negative, (test code = 27759-9) Indeterminate, See comment Vibrio (test code = Negative Negative, 44427-3) Indeterminate, See comment Vibrio cholerae (test Negative Negative, code = 07255-8) Indeterminate, See comment Enteroaggregative E. Negative Negative, coli (EAEC) (test code = Indeterminate, 65262-4) See comment Enteropathogenic E. coli Negative Negative, N/A, (EPEC) (test code = Indeterminate, 28449-8) See comment Enterotoxigenic E. coli Negative Negative, (ETEC) (test code = Indeterminate, 70866-8) See comment Shiga toxin-Producing E. Negative Negative, coli (STEC) (test code = Indeterminate, 40490-5) See comment Shigella/Enteroinvasive Negative Negative, E. coli (EIEC) (test Indeterminate, code = 60557-4) See comment Cryptosporidium (test Negative Negative, code = 21671-6) Indeterminate, See comment Cyclospora cayetanensis Negative Negative, (test code = 08300-6) Indeterminate, See comment Entamoeba histolytica Negative Negative, (test code = 49363-7) Indeterminate, See comment Giardia lamblia (test Negative Negative, code = 23800-4) Indeterminate, See comment Adenovirus F 40/41 (test Negative Negative, code = 19442-4) Indeterminate, See comment Astrovirus (test code = Negative Negative, 18705-6) Indeterminate, See comment Norovirus GI/GII (test Negative Negative, code = 21216-5) Indeterminate, See comment Rotavirus A (test code = Negative Negative, 43491-3) Indeterminate, See comment Sapovirus (test code = Negative Negative, 81982-1) Indeterminate, See comment Clostridioides Positive Negative, A (Clostridium) difficile Indeterminate, Toxin A/B (test code = See comment 43360-0) SNOW (test code = SNOW) Based on [...] the binary toxin gene (CDT), and the ztrdor-tbam-wsuk deletion at nucleotide 117 within the gene [...] organism. Lab Interpretation (test Abnormal code = 80811-2) [facility] [id number] 14:26:32 Test Item Value Reference Range Interpretation Comments Occult (guaiac) Blood (test code = Negative Negative 2335-8) Lab Interpretation (test code = Normal 83252-5) [facility] WITH [id number] 13:54:12 Test Item Value Reference Range Interpretation [...] (test code = 52.9 fL 39.0-49.9 H 62976-4) RDW-CV (test code = 18.3 % 12.0-15.5 H 788-0) PLT (test code = See_Comment LL [Automated 777-3) message] The sy stem which generated this result transmitted reference range : 166 - 358 10*3/ ?L. The reference r davi was not used to interpret this result as normal/abnormal . MPV (test code = 10.8 fL 9.5-12.9 80374-6) IPF % (test code = 4.2 % 1.3-7.7 Platelet count 5000641291) measured by fluorescence method. NRBC/100 WBC (test See_Comment [Automat ed code = 6084288562) message] The system which generated this result transmitted reference range : 0.0 - 10.0 /100 WBCs. The refer ence range was not u sed to interpret th is result as normal/abnormal . NRBC x10^3 (test code <0.01 See_Comment [Auto mated = 8987252019) message] The s ystem which generated this result transmitted reference range : 10*3/?L. The reference range was not used to interpret this result as normal/abnormal . GRAN MAT (NEUT) % 60.0 % (test code = 770-8) IMM GRAN % (test code 0.40 % = 4264413866) LYMPH % (test code = 20.6 % 736-9) MONO % (test code = 11.3 % 5905-5) EOS % (test code = 6.9 % 713-8) BASO % (test code = 0.8 % 706-2) GRAN MAT x10^3(ANC) 1.49 10*3/uL 1.88-7.09 L (test code = 7329127707) IMM GRAN x10^3 (test <0.03 0.00-0.06 code = 0871974135) LYMPH x10^3 (test code 0.51 10*3/uL 1.32-3.29 L = 731-0) MONO x10^3 (test code 0.28 10*3/uL 0.33-0.92 L = 742-7) EOS x10^3 (test code = 0.17 10*3/uL 0.03-0.39 711-2) BASO x10^3 (test code <0.03 0.01-0.07 = 704-7) Lab Interpretation Abnormal (test code = 90917-5) [facility]OLIC PANEL (00263)2020-09-30 12:47:49 Test Item Value Reference Range Interpretation Comments NA (test code = 135 mmol/L 135-145 9138772070) K (test code = 4.0 mmol/L 3.5-5.0 4938942830) CL (test code = 108 mmol/L 98-108 9531076424) CO2 TOTAL (test code = 23 mmol/L 23-31 2541816771) AGAP (test code = 2-16 8040180210) BUN (test code = 8 mg/dL 7-23 1332646633) GLUCOSE (test code = 109 mg/dL 70-110 4247993466) CREATININE (test code = 0.52 mg/dL 0.50-1.04 6139056942) TOTAL BILI (test code = 1.7 mg/dL 0.1-1.1 H 6555751129) CALCIUM (test code = 8.0 mg/dL 8.6-10.6 L 2949701205) T PROTEIN (test code = 5.7 g/dL 6.3-8.2 L 7358016680) ALBUMIN (test code = 2.7 g/dL 3.5-5.0 L 2316821432) ALK PHOS (test code = 106 U/L 34-122 8123051549) ALTv (test code = 22 U/L 5-35 1742-6) AST(SGOT) (test code = 34 U/L 13-40 9930611019) eGFR (test code = mL/min/1.73m2 8473983212) SNOW (test code = SNOW) Association of [...] tests). Lab Interpretation Abnormal (test code = 64353-6) [facility] HospitalFECAL [id number] 11:49:39 Test Item Value Reference Range Interpretation Comments Fecal Leukocytes (test code = Positive Negative A 3019996344) Lab Interpretation (test code = Abnormal 49233-2) [facility] HospitalN-TERMINAL [id number] 10:20:53 Test Item Value Reference Range Interpretation Comments NT-proBNP (test code 68 pg/mL See_Comment [Autom ated = 8931578705) message] The system which generated this result transmitted reference range : <=125. The reference range was not used to interpret this result as normal/abnormal . SNOW (test code = SNOW) Biotin has been reported to cause a negative bias, interpret results relative to patient's use of biotin. Lab Interpretation Normal (test code = 30330-9) [facility] HospitalCLOSTRIDIUM DIFFICILE [id number] 05:18:16 Test Item Value Reference Range Interpretation Comments Clostridioides (Clostridium) Negative Negative difficile (test code = 12960-9) Lab Interpretation (test code = Normal 01895-6) [facility] HospitalPOCT GLUCOSE (AUTOMATED)2020-09-30 00:54:42 Test Item Value Reference Range Interpretation Comments POCT GLU (test code = 3744535717) 111 mg/dL 70-110 H Lab Interpretation (test code = Abnormal 36570-3) [facility] HospitalBASI METABOLIC PANEL (NA, K, CL, CO2, GLUCOSE, BUN, CREATININE, CA)2020-09-29 22:08:22 Test Item Value Reference Range Interpretation Comments NA (test code = 135 mmol/L 135-145 9605796681) K (test code = 3.7 mmol/L 3.5-5.0 9493079761) CL (test code = 108 mmol/L 98-108 3313090398) CO2 TOTAL (test code = 22 mmol/L 23-31 L 3048114777) AGAP (test code = 2-16 6545151057) BUN (test code = 9 mg/dL 7-23 6817333426) GLUCOSE (test code = 104 mg/dL 70-110 4596119405) CREATININE (test code = 0.51 mg/dL 0.50-1.04 9916776807) CALCIUM (test code = 7.9 mg/dL 8.6-10.6 L 7891624688) eGFR (test code = mL/min/1.73m2 6047938418) SNOW (test code = SNOW) Association of [...] tests). Lab Interpretation Abnormal (test code = 60620-1) [facility] HospitalHEMOGLOBIN2021-06-21 21:41:20 Test Item Value Reference Range Interpretation Comments HGB (test code = 718-7) 7.4 g/dL 11.6-15.0 L Lab Interpretation (test code = Abnormal 20064-6) [facility] HospitalVITAMIN B12, [id number] 20:39:52 Test Item Value Reference Range Interpretation Comments VIT B12 (test code = 212 pg/mL 240-930 L 7504284063) SNOW (test code = SNOW) Biotin has been reported to cause a positive bias, interpret results relative to patient's use of biotin. 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.[facility] HospitalC-REACTIVE [id number] 17:01:56 Test Item Value Reference Range Interpretation Comments CRP (test code = 4722063395) 4.7 mg/dL <0.8 H Lab Interpretation (test code = Abnormal 68720-9) [facility] HospitalVITAMIN D, [id number] 16:43:29 Test Item Value Reference Range Interpretation Comments VIT D 25OH (test code = <13 25-80 L 86023-4) SNOW (test code = SNOW) Deficiency: <20 ng/mLInsufficiency: 20-24 ng/mLOptimal: 25-80 ng/mL Lab Interpretation (test Abnormal code = 24280-2) [facility] HospitalPROCALCITONIN2021-06-21 16:15:30 Test Item Value Reference Range Interpretation Comments Procalcitonin (test 0.08 ng/mL <0.07 H code = 9701994892) SNOW (test code = SNOW) INTERPRETATION OF [...] lung abscess/empyema. For further information please refer to:[email or web address] Lab Interpretation Abnormal (test code = 11165-7) [facility] HospitalOSMOLALITY [id number] 15:35:14 Test Item Value Reference Range Interpretation Comments OSMO U (test code = See_Comment [Automa josemanuel message] 9216116156) The system Paltalk generated this result transmitted ref erence range: 50-1,100 mOsm/kg. The re ference range was not u sed to interpret this result as normal/abnor mal. Lab Interpretation (test Normal code = 79018-9) [facility] HospitalTROPONIN [id number] 14:04:56 Test Item Value Reference Range Interpretation Comments TROPONIN I (test 0.002 ng/mL See_Comment [Automated code = 6623880756) message] The system which generated this result [...] ? Lab Interpretation Normal (test code = 09661-3) [facility] HospitalCT ABDOMEN PELVIS W [id number] 13:37:17 1. ?Findings concerning for infectious or [...] reviewed this study and agree with theabove report.[facility] WITH [id number] 11:41:25 Test Item Value Reference Range Interpretation [...] (test code = 52.4 fL 39.0-49.9 H 47703-2) RDW-CV (test code = 18.2 % 12.0-15.5 H 788-0) PLT (test code = See_Comment LL [Automated 777-3) message] The system which generated this result transmit josemanuel reference range : 166 - 358 10*3/ ?L. The reference range was not u sed to interpret th is result as normal/abnormal . MPV (test code = Not Measure d 58032-1) IPF % (test code = 4.3 % 1.3-7.7 Platelet count 3764033920) measured by fluorescence method. NRBC/100 WBC (test See_Comment [Automat ed code = 0194340523) message] The system which generated this result transmit josemanuel reference range : 0.0 - 10.0 /100 WBCs. The reference range was not used to interpret this result as normal/abnormal . NRBC x10^3 (test code <0.01 See_Comment [Auto mated = 8058419133) message] The system which generated this result transmit josemanuel reference range : 10*3/?L. The reference range was not used to interpret this result as normal/abnormal . GRAN MAT (NEUT) % 74.4 % (test code = 770-8) IMM GRAN % (test code 0.50 % = 0650185864) LYMPH % (test code = 10.3 % 736-9) MONO % (test code = 12.3 % 5905-5) EOS % (test code = 2.0 % 713-8) BASO % (test code = 0.5 % 706-2) GRAN MAT x10^3(ANC) 3.02 10*3/uL 1.88-7.09 (test code = 5015228946) IMM GRAN x10^3 (test <0.03 0.00-0.06 code = 2249442075) LYMPH x10^3 (test 0.42 10*3/uL 1.32-3.29 L code = 731-0) MONO x10^3 (test code 0.50 10*3/uL 0.33-0.92 = 742-7) EOS x10^3 (test code 0.08 10*3/uL 0.03-0.39 = 711-2) BASO x10^3 (test code <0.03 0.01-0.07 = 704-7) PLT ESTIMATE (test Decreased Normal A code = 9317-9) SNOW (test code = SNOW) CBC smear reduced platelet Lab Interpretation Abnormal (test code = 13126-9) [facility] HospitalN-TERMINAL [id number] 11:07:24 Test Item Value Reference Range Interpretation Comments NT-proBNP (test code 79 pg/mL See_Comment [Autom ated = 1033240599) message] The system which generated this result transmitted reference range : <=125. The reference range was not used to interpret this result as normal/abnormal . SNOW (test code = SNOW) Biotin has been reported to cause a negative bias, interpret results relative to patient's use of biotin. Lab Interpretation Normal (test code = 43536-6) [facility] HospitalIRON [id number] 11:04:41 Test Item Value Reference Range Interpretation Comments IRON (test code = 9500338687) 31 ug/dL 50-160 L TIBC (test code = 0321840682) 295 ug/dL 250-410 % FE SAT (test code = 4596649910) 11 % 20-50 L Lab Interpretation (test code = Abnormal 36216-0) [facility] HospitalPROTEIN CREAT RATIO URINE [id number] 10:57:19 Test Item Value Reference Range Interpretation Comments T. PROT U (test code = 2888-6) 9 mg/dL CREAT U (test code = 7681057792) 187.5 mg/dL Protein/Creatinine Ratio Urine 0.0-2.0 (test code = 8439150344) [facility] HospitalSODIUM, URINE [id number] 10:53:21 Test Item Value Reference Range Interpretation Comments NA URINE (test code = 1096913465) 30 mmol/L [facility] HospitalSEDIMENTATION [id number] 10:33:04 Test Item Value Reference Range Interpretation Comments ESR (test code = See_Comment [Automated message] 1540511136) The system Paltalk generated this result transmitted ref erence range: 0 - 20 m m/HR. The reference r davi was not used to interpret this result as normal/abnor mal. Lab Interpretation (test Normal code = 42409-3) [facility] HospitalPROTHROMBIN TIME / [id number] 09:43:39 Test Item Value Reference Range Interpretation Comments PROTIME PATIENT (test See_Comment H [Auto mated message] code = 5964-2) The system Textic generated this result transmitted ref erence range: 12.0 - 1 4.7 Seconds. The reference range was not used to int erpret this result as normal/abnormal . INR (test code = 6301-6) Nor mal INR <1.1; Warfarin Therap eutic range 2.0 to 3. 0 or 2.5 to 3.5, dep ending upon the indica tions. Lab Interpretation (test Abnormal code = 04932-5) [facility] HospitalLactic Acid Whole [id number] 08:42:38 Test Item Value Reference Range Interpretation Comments LACTIC ACID (test code = 1.47 mmol/L 0.50-2.20 8755268141) Lab Interpretation (test code = Normal 39796-1) [facility] HospitalFERRITIN [id number] 07:31:09 Test Item Value Reference Range Interpretation Comments FERRITIN (test code = 12.2 ng/mL 11.0-264.0 1568507235) SNOW (test code = SNOW) Biotin has been reported to cause a negative bias, interpret results relative to patient's use of biotin. Lab Interpretation (test Normal code = 66101-2) [facility] HospitalTHYROID STIMULATING [id number] 07:27:08 Test Item Value Reference Range Interpretation Comments TSH (test code = See_Comment [Automated message] 2731099762) The system Paltalk generated this result transmitted ref erence range: 0.45 - 4 .70 mIU/L. The refe rence range was not u sed to interpret this result as normal/abnor mal. Lab Interpretation (test Normal code = 31790-8) [facility] HospitalGLYCOSYLATED HEMOGLOBIN (A1C)2020-09-29 07:05:40 Test Item Value Reference Range Interpretation Comments HGB A1C (test code = 5.0 % 4.0-5.7 4548-4) SNOW (test code = SNOW) Reference RangesNormal: <5.7%Prediabetes: 5.7 - 6.4%Diabetes: > 6.5% Lab Interpretation (test Normal code = 00942-6) [facility] HospitalURIC [id number] 07:05:35 Test Item Value Reference Range Interpretation Comments URIC ACID (test code = 4418657461) 4.2 mg/dL 2.9-6.0 Lab Interpretation (test code = Normal 31446-5) [facility] HospitalCREATINE [id number] 07:05:30 Test Item Value Reference Range Interpretation Comments CK (test code = 2032532446) 192 U/L 33-194 Lab Interpretation (test code = Normal 92935-0) [facility] HospitalN-TERMINAL [id number] 07:05:30 Test Item Value Reference Range Interpretation Comments NT-proBNP (test code 94 pg/mL See_Comment [Autom ated = 3426885296) message] The system which generated this result transmitted reference range : <=125. The reference range was not used to interpret this result as normal/abnormal . SNOW (test code = SNOW) Biotin has been reported to cause a negative bias, interpret results relative to patient's use of biotin. Lab Interpretation Normal (test code = 20039-0) [facility] HospitalMAGNESIUM2021-06-21 07:04:24 Test Item Value Reference Range Interpretation Comments MAGNESIUM (test code = 5893161746) 1.8 mg/dL 1.7-2.4 Lab Interpretation (test code = Normal 54346-3) [facility] HospitalPHOSPHORUS2021-06-21 07:03:39 Test Item Value Reference Range Interpretation Comments PHOSPHORUS (test code = 3109014332) 2.2 mg/dL 2.5-5.0 L Lab Interpretation (test code = Abnormal 85695-3) [facility] HospitalLIPID PANEL (08722)(TOTAL CHOLESTEROL, TRIGLYCERIDES, HDL)2020-09-29 06:56:06 Test Item Value Reference Range Interpretation Comments CHOL (test code = 132 mg/dL 120-200 9410284261) HDL (test code = 41 mg/dL >50 L 4325602639) HDLC RATIO (test code = See_Comment [Au tomated message] 3890991379) The system Paltalk generated this result transmit josemanuel reference range : <=4.5. The refe rence range was not u sed to interpret th is result as normal/abnormal . TRIG (test code = 73 mg/dL 30-170 8830097306) LDL CHOL (test code = 76 mg/dL See_Comment [Auto mated message] 86871-8) The system Paltalk generated this result transmit josemanuel reference range : <=160. The refe rence range was not u sed to interpret th is result as normal/abnormal . VLDL (test code = 15 mg/dL 5-60 1393003533) Lab Interpretation (test Abnormal code = 42978-7) [facility] HospitalCOVID-19 (ID NOW RAPID TESTING)2020-09-29 06:24:26 Test Item Value Reference Range Interpretation Comments SARS-CoV-2 Rapid ID NOW Not Detected Not Detected (test code = 57316-2) SNOW (test code = SNOW) ID NOW COVID-19 Assay is an isothermal nucleic acid amplification test intended for the qualitative detection of nucleic acid from SARS-CoV-2 viral RNA in nasopharyngeal (OXIDIZED FINISH PLATER) specimens. It is used under Emergency Use [...] indicated. Lab Interpretation Normal (test code = 12492-9) [facility] HospitalURINALYSIS2021-06-21 04:43:31 Test Item Value Reference Range Interpretation Comments APPEARANCE (test code = Clear Clear 3108979164) COLOR (test code = Rosanne Yellow A 6477065465) PH (test code = 4.8-8.0 7453118715) SP GRAVITY (test code = 1.003-1.030 1848455547) GLU U QUAL (test code = Normal Normal 8938739192) BLOOD (test code = Negative Negative 1573202615) KETONES (test code = Negative Negative 9872347788) PROTEIN (test code = 30 mg/dL Negative A 2887-8) UROBILIN (test code = Normal Normal 6315715882) BILIRUBIN (test code = Negative Negative 0003097316) NITRITE (test code = Negative Negative 4152362601) LEUK RANULFO (test code = 25/uL Negative A 7052211887) RBC/HPF (test code = See_Comment [Autom ated message] 2503895919) The system Paltalk generated this result transmitted ref erence range: 0 - 3 HP F. The reference range was not used to int erpret this result as normal/abnormal . WBC/HPF (test code = See_Comment [Autom ated message] 4278411354) The system Paltalk generated this result transmitted ref erence range: 0 - 5 HP F. The reference range was not used to int erpret this result as normal/abnormal . BACTERIA (test code = Few Negative A 4939269999) MUCOUS (test code = Moderate Negative LPF A 6385683487) SQ EPITH (test code = HPF 2164631695) Lab Interpretation (test Abnormal code = 99943-1) [facility] WITH [id number] 04:39:35 Test Item Value Reference Range Interpretation [...] (test code = 51.3 fL 39.0-49.9 H 61970-2) RDW-CV (test code = 18.1 % 12.0-15.5 H 788-0) PLT (test code = See_Comment L [Automated 777-3) message] The system which generated this result transmit josemanuel reference range : 166 - 358 10*3/ ?L. The reference range was not u sed to interpret th is result as normal/abnormal . MPV (test code = 11.1 fL 9.5-12.9 73609-8) IPF % (test code = 3.7 % 1.3-7.7 Platelet count 4562183458) measured by fluorescence method. NRBC/100 WBC (test See_Comment [Automat ed code = 4205466377) message] The system which generated this result transmit josemanuel reference range : 0.0 - 10.0 /100 WBCs. The reference range was not used to interpret this result as normal/abnormal . NRBC x10^3 (test code <0.01 See_Comment [Auto mated = 3898653721) message] The system which generated this result transmit josemanuel reference range : 10*3/?L. The reference range was not used to interpret this result as normal/abnormal . GRAN MAT (NEUT) % 76.4 % (test code = 770-8) IMM GRAN % (test code 0.80 % = 5631628029) LYMPH % (test code = 9.4 % 736-9) MONO % (test code = 11.3 % 5905-5) EOS % (test code = 1.5 % 713-8) BASO % (test code = 0.6 % 706-2) GRAN MAT x10^3(ANC) 4.07 10*3/uL 1.88-7.09 (test code = 5815762010) IMM GRAN x10^3 (test 0.04 10*3/uL 0.00-0.06 code = 7571568691) LYMPH x10^3 (test 0.50 10*3/uL 1.32-3.29 L code = 731-0) MONO x10^3 (test code 0.60 10*3/uL 0.33-0.92 = 742-7) EOS x10^3 (test code 0.08 10*3/uL 0.03-0.39 = 711-2) BASO x10^3 (test code 0.03 10*3/uL 0.01-0.07 = 704-7) PLT ESTIMATE (test Decreased Normal A code = 9317-9) SNOW (test code = NSOW) Juan slide adgrees to decreased Platelet Lab Interpretation Abnormal (test code = 08967-7) [facility]. METABOLIC PANEL (74473)2020-09-29 04:25:42 Test Item Value Reference Range Interpretation Comments NA (test code = 134 mmol/L 135-145 L 5876179443) K (test code = 3.2 mmol/L 3.5-5.0 L 3810159294) CL (test code = 104 mmol/L 98-108 4160352302) CO2 TOTAL (test code = 24 mmol/L 23-31 4842494668) AGAP (test code = 2-16 5410184577) BUN (test code = 8 mg/dL 7-23 7714653564) GLUCOSE (test code = 105 mg/dL 70-110 3930746645) CREATININE (test code = 0.51 mg/dL 0.50-1.04 0920251111) TOTAL BILI (test code = 2.5 mg/dL 0.1-1.1 H 9187169365) CALCIUM (test code = 8.2 mg/dL 8.6-10.6 L 6437610952) T PROTEIN (test code = 6.3 g/dL 6.3-8.2 4620800511) ALBUMIN (test code = 3.1 g/dL 3.5-5.0 L 3974824758) ALK PHOS (test code = 136 U/L 34-122 H 7793320284) ALTv (test code = 24 U/L 5-35 1742-6) AST(SGOT) (test code = 30 U/L 13-40 3564958898) eGFR (test code = mL/min/1.73m2 9244182343) SNOW (test code = SNOW) Association of [...] tests). 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 employed in a healthcare 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 (test code = 89255-6) Whether the patient has symptoms related to condition of interest (test code = 64657-9) Patient was hospitalized because of this condition (test code = 71662-7) Whether the patient was admitted to intensive care unit (ICU) for condition of interest (test code = 22506-8) Whether patient resides in a congregate care setting (test code = 69547-4) SARS-CoV-2 (COVID-19) RNA [Presence] in Respiratory specimen by HELENA with probe [id number] 02:47:43 Test Item Value Reference Range Interpretation Comments SARS-CoV-2 (COVID-19) RNA Not detected Not-Detected [Presence] in Respiratory specimen by HELENA with probe detection (test code = 38141-7) SARS-CoV-2 (COVID-19) RNA [Presence] in Respiratory specimen by HELENA with probe [id number] 16:32:37 Test Item Value Reference Range Interpretation Comments SARS-CoV-2 (COVID-19) RNA Not detected Not-Detected [Presence] in Respiratory specimen by HELENA with probe detection (test code = 81862-4) SARS-CoV-2 (COVID-19) RNA [Presence] in Respiratory specimen by HELENA with probe [id number] 05:29:57 Test Item Value Reference Range Interpretation Comments SARS-CoV-2 (COVID-19) RNA Not detected Not-Detected [Presence] in Respiratory specimen by HELENA with probe detection (test code = 87661-5) CT ABDOMEN PELVIS W [id number] 19:27:49 1. ?No evidence of small bowel [...] reviewed this study and agree with the abovereport.[facility] WITH [id number] 11:56:00 Test Item Value Reference Range Interpretation [...] (test code = 58.0 fL 39-49.9 H 29557-4) RDW-CV (test code = 16.6 % 12-15.5 H 788-0) PLT (test code = See_Comment LL [Automated 777-3) message] The sy stem which generated this result transmitted reference range : 166 - 358 10*3/ ?L. The reference r davi was not used to interpret this result as normal/abnormal . MPV (test code = 11.0 fL 9.5-12.9 14571-5) IPF % (test code = 5.5 % 1.3-7.7 Platelet count 1111284893) measured by fluorescence method. NRBC/100 WBC (test See_Comment [Automat ed code = 6867171545) message] The system which generated this result transmitted reference range : 0.0 - 10.0 /100 WBCs. The refer ence range was not u sed to interpret th is result as normal/abnormal . NRBC x10^3 (test code <0.01 See_Comment [Auto mated = 0729959559) message] The s ystem which generated this result transmitted reference range : 10*3/?L. The reference range was not used to interpret this result as normal/abnormal . GRAN MAT (NEUT) % 57.6 % (test code = 770-8) IMM GRAN % (test code 0.00 % = 9468002145) LYMPH % (test code = 27.1 % 736-9) MONO % (test code = 11.8 % 5905-5) EOS % (test code = 3.1 % 713-8) BASO % (test code = 0.4 % 706-2) GRAN MAT x10^3(ANC) 1.47 10*3/uL 1.88-7.09 L (test code = 2233933034) IMM GRAN x10^3 (test <0.03 0-0.06 code = 0650137959) LYMPH x10^3 (test code 0.69 10*3/uL 1.32-3.29 L = 731-0) MONO x10^3 (test code 0.30 10*3/uL 0.33-0.92 L = 742-7) EOS x10^3 (test code = 0.08 10*3/uL 0.03-0.39 711-2) BASO x10^3 (test code <0.03 0.01-0.07 = 704-7) Lab Interpretation Abnormal (test code = 73230-8) [facility]. METABOLIC PANEL (05634)2019-08-11 10:42:00 Test Item Value Reference Range Interpretation Comments NA (test code = 138 mmol/L 135-145 3869888270) K (test code = 3.8 mmol/L 3.5-5 3888580614) CL (test code = 108 mmol/L 98-108 7425941911) CO2 TOTAL (test code = 24 mmol/L 23-31 6848911299) AGAP (test code = 2-16 5712269473) BUN (test code = 10 mg/dL 7-23 8567560575) GLUCOSE (test code = 108 mg/dL 70-110 4318630934) CREATININE (test code = 0.43 mg/dL 0.5-1.04 L 2718012371) TOTAL BILI (test code = 2.5 mg/dL 0.1-1.1 H 0070768721) CALCIUM (test code = 8.4 mg/dL 8.6-10.6 L 6734083429) T PROTEIN (test code = 6.1 g/dL 6.3-8.2 L 5639056338) ALBUMIN (test code = 3.1 g/dL 3.5-5 L 9693952914) ALK PHOS (test code = 102 U/L 34-122 8136547142) ALTv (test code = 52 U/L 5-35 H 1742-6) AST(SGOT) (test code = 63 U/L 13-40 H 2687783343) eGFR Calculation mL/min/1.73m2 (Non-) (test code = 8132976178) eGFR Calculation mL/min/1.73m2 () (test code = 8102081918) SNOW (test code = SNOW) Association of [...] tests). Lab Interpretation Abnormal (test code = 02566-3) [facility] BOWEL [id number] 02:08:11 1. ?No bowel obstruction. No fluoroscopic images or fluoroscopic time. RL 6200 HISTORY: ?Abdominal pain COMPARISON: ?None FINDINGS: There is a nonobstructive bowel gas pattern. Contrast is seen throughoutthe entire small bowel and colon. No dilated loops of bowel demonstrated. [facility], Radiant Results Inft User - 08/10/2019 9:09 PM CDTHISTORY: Abdominal painCOMPARISON: NoneFINDINGS:There is a nonobstructive bowel gas pattern. Contrast is seen throughoutthe entire small bowel and colon. No dilated loops of bowel demonstrated.IMPRESSION1. No bowel obstruction.No fluoroscopic images or fluoroscopic time.RL 6200 [facility]SEDIMENTATION [id number] 16:19:00 Test Item Value Reference Range Interpretation Comments ESR (test code = See_Comment [Automated message] 6768805915) The system Paltalk generated this result transmitted ref erence range: 0 - 20 m m/HR. The reference r davi was not used to interpret this result as normal/abnor mal. Lab Interpretation (test Normal code = 66184-1) [facility] HospitalAb[facility] 1 View - To confirm [...] system. No acute bony abnormalities are noted. [facility], Radiant Results Inft User - [...] upperabdomen.Preliminary Report Dictated by Resident: Keo Dorantes, Nancy Villalobos MD., have reviewed this study and agree with the abovereport.[facility] WITH [id number] 13:48:00 Test Item Value Reference Range Interpretation Comments WBC (test code = See_Comment L [Automated 8690-2) message] The system which generated this result transmit josemanuel reference range : 4.30 - 11.10 10*3/?L. The reference range was not used to interpret this result as normal/abnormal . RBC (test code = See_Comment L [Automated 789-8) message] The system which generated this result transmit josemanule reference range : 3.93 - 5.25 10*6/?L. [...] (test code = 58.4 fL 39-49.9 H 07875-4) RDW-CV (test code = 16.7 % 12-15.5 H 788-0) PLT (test code = See_Comment LL [Automated 777-3) message] The system which generated this result transmit josemanuel reference range : 166 - 358 10*3/ ?L. The reference range was not u sed to interpret th is result as normal/abnormal . MPV (test code = 10.5 fL 9.5-12.9 68082-0) IPF % (test code = 3.0 % 1.3-7.7 Platelet count 2700797020) measured by fluorescence method. NRBC/100 WBC (test See_Comment [Automat ed code = 6740698176) message] The system which generated this result transmit josemanuel reference range : 0.0 - 10.0 /100 WBCs. The reference range was not used to interpret this result as normal/abnormal . NRBC x10^3 (test code <0.01 See_Comment [Auto mated = 4167913350) message] The system which generated this result transmit josemanuel reference range : 10*3/?L. The reference range was not used to interpret this result as normal/abnormal . GRAN MAT (NEUT) % 57.1 % (test code = 770-8) IMM GRAN % (test code 0.40 % = 9696998234) LYMPH % (test code = 28.1 % 736-9) MONO % (test code = 10.4 % 5905-5) EOS % (test code = 3.6 % 713-8) BASO % (test code = 0.4 % 706-2) GRAN MAT x10^3(ANC) 1.42 10*3/uL 1.88-7.09 L (test code = 4891400659) IMM GRAN x10^3 (test <0.03 0-0.06 code = 9821925707) LYMPH x10^3 (test 0.70 10*3/uL 1.32-3.29 L code = 731-0) MONO x10^3 (test code 0.26 10*3/uL 0.33-0.92 L = 742-7) EOS x10^3 (test code 0.09 10*3/uL 0.03-0.39 = 711-2) BASO x10^3 (test code <0.03 0.01-0.07 = 704-7) PLT ESTIMATE (test Critically Normal AA code = 9317-9) Decreased Lab Interpretation Abnormal (test code = 27825-9) [facility] HospitalGLYCOSYLATED HEMOGLOBIN (A1C)2019-08-10 13:13:00 Test Item [...] Indicated Lab Interpretation Normal (test code = 57722-5) [facility] HospitalTHYROID STIMULATING [id number] 13:05:00 Test Item Value Reference Range Interpretation Comments TSH (test code = See_Comment [Automated message] 4336627108) The system Paltalk generated this result transmitted ref erence range: 0.45 - 4 .70 mIU/L. The refe rence range was not u sed to interpret this result as normal/abnor mal. Lab Interpretation (test Normal code = 09945-7) [facility] HospitalPREGNANCY TEST, [id number] 13:04:00 Test Item Value Reference Range Interpretation Comments PREG SERUM (test code Negative = 5107612636) SNOW (test code = SNOW) Less than 10 IU/L. ?If low titer or ectopic is suspected, resubmit specimen in 48-72 hours. [facility] HospitalLIPID PANEL (06693)(TOTAL CHOLESTEROL, TRIGLYCERIDES, HDL)2019-08-10 12:36:00 Test Item Value Reference Range Interpretation Comments CHOL (test code = 158 mg/dL 120-200 9380551564) HDL (test code = 47 mg/dL >50 L 5888638784) HDLC RATIO (test code = See_Comment [Au tomated message] 2914751815) The system Paltalk generated this result transmit josemanuel reference range : <=4.5. The refe rence range was not u sed to interpret th is result as normal/abnormal . TRIG (test code = 51 mg/dL 30-170 8986968043) LDL CHOL (test code = 101 mg/dL See_Comment [Auto mated message] 14518-9) The system Paltalk generated this result transmit josemanuel reference range : <=160. The refe rence range was not u sed to interpret th is result as normal/abnormal . VLDL (test code = 10 mg/dL 5-60 1454276302) Lab Interpretation (test Abnormal code = 51757-6) [facility] HospitalCOMP. METABOLIC PANEL (08109)2019-08-10 12:35:00 Test Item Value Reference Range Interpretation Comments NA (test code = 139 mmol/L 135-145 5730824910) K (test code = 3.9 mmol/L 3.5-5 5304709226) CL (test code = 109 mmol/L 98-108 H 0233866834) CO2 TOTAL (test code = 25 mmol/L 23-31 0272692352) AGAP (test code = 2-16 9768145009) BUN (test code = 15 mg/dL 7-23 0592156459) GLUCOSE (test code = 218 mg/dL 70-110 H 0958851077) CREATININE (test code = 0.40 mg/dL 0.5-1.04 L 3462874705) TOTAL BILI (test code = 2.0 mg/dL 0.1-1.1 H 0896215596) CALCIUM (test code = 8.5 mg/dL 8.6-10.6 L 4453928287) T PROTEIN (test code = 6.2 g/dL 6.3-8.2 L 0770036211) ALBUMIN (test code = 3.1 g/dL 3.5-5 L 7167013215) ALK PHOS (test code = 99 U/L 34-122 7702962683) ALTv (test code = 42 U/L 5-35 H 1742-6) AST(SGOT) (test code = 49 U/L 13-40 H 3919198979) eGFR Calculation mL/min/1.73m2 (Non-) (test code = 1887582447) eGFR Calculation mL/min/1.73m2 () (test code = 9022250409) SNOW (test code = SNOW) Association of [...] tests). Lab Interpretation Abnormal (test code = 76424-5) [facility]MAGN[facility]IUM2020-05-01 12:35:00 Test Item Value Reference Range Interpretation Comments MAGNESIUM (test code = 8657566004) 1.6 mg/dL 1.7-2.4 L Lab Interpretation (test code = Abnormal 57322-0) [facility] HospitalPHOSPHORUS2020-05-01 12:35:00 Test Item Value Reference Range Interpretation Comments PHOSPHORUS (test code = 0229545607) 3.6 mg/dL 2.5-5 Lab Interpretation (test code = Normal 98543-0) [facility] HospitalCREATINE [id number] 12:35:00 Test Item Value Reference Range Interpretation Comments CK (test code = 1431030844) 123 U/L 33-194 Lab Interpretation (test code = Normal 60180-7) [facility]LIPASE2020-05-01 12:35:00 Test Item Value Reference Range Interpretation Comments LIPASE (test code = 3375325629) 141 U/L 0-220 Lab Interpretation (test code = Normal 93588-1) [facility] HospitalAMYLASE2020-05-01 12:34:00 Test Item Value Reference Range Interpretation Comments LIN (test code = 6611183576) 73 U/L 35-110 Lab Interpretation (test code = Normal 57133-2) [facility] HospitalPROTHROMBIN TIME / [id number] 12:07:00 Test Item Value Reference Range Interpretation [...] tions. Lab Interpretation (test Abnormal code = 71265-6) [facility] HospitalCORONAVIRUS COVID-19 [id number] 10:18:00 Test Item Value Reference Range Interpretation Comments SARS-CoV-2 (test code = Not Detected Not Detected 58767-2) SNOW (test code = SNOW) ID NOW COVID-19 Assay is an isothermal nucleic acid amplification test intended for the qualitative detection of nucleic acid from SARS-CoV-2 viral RNA in nasopharyngeal (OXIDIZED FINISH PLATER) specimens. It is used under Emergency Use [...] indicated. Lab Interpretation Normal (test code = 44276-9) [facility] HospitalRAD, CHEST, 1 VIEW, NON [id number] 07:50:00Reason for exam:->SOBShould this be performed at the bedside?->Yes FINAL REPORT CLINICAL HISTORY: SOB TECHNIQUE: 1 view of the chest. COMPARISON: None IMPRESSION: There is pulmonary vascular congestion with prominent lung markings bilaterally. Subpulmonic pleural effusions cannot be excluded. The cardiomediastinal silhouette is magnified by technique. Signed: Franky Hoyt MDReport Verified Date/Time: 10/03/2018 07:50:47 Reading Location: [facility] Radiology Reading Room [id number] 07:37:00 Test Item Value Reference Range Interpretation Comments MAGNESIUM (BEAKER) (test code = 1.6 mg/dL 1.6-2.6 627) BASIC METABOLIC [id number] 07:37:00 Test Item Value Reference Range Interpretation [...] DIALYSIS PATIEN TS. Specimen slightly ictericHEPATIC FUNCTION [id number] 07:37:00 Test Item Value Reference Range Interpretation [...] 35 U/L 6-55 347) Specimen slightly ictericPROTHROMBIN TIME/[id number] 06:25:00 Test Item Value Reference Range Interpretation [...] mechanical heart valves.CBC W/PLT COUNT & AUTO [id number] 06:16:00 Test Item Value Reference Range Interpretation [...] = 3438) Received comment: User comments: Slide comments:[id number] 05:58:00 Test Item Value Reference Range Interpretation Comments MAGNESIUM (BEAKER) (test code = 1.6 mg/dL 1.6-2.6 627) BASIC METABOLIC [id number] 05:58:00 Test Item Value Reference Range Interpretation [...] DIALYSIS PATIEN TS. Specimen slightly ictericHEPATIC FUNCTION [id number] 05:58:00 Test Item Value Reference Range Interpretation [...] 39 U/L 6-55 347) Specimen slightly ictericPROTHROMBIN TIME/[id number] 05:26:00 Test Item Value Reference Range Interpretation [...] mechanical heart valves.CBC W/PLT COUNT & AUTO [id number] 05:20:00 Test Item Value Reference Range Interpretation [...] WBC 0-0 (test code = 413) VITAMIN [id number] 06:57:00 Test Item Value Reference Range Interpretation Comments VITAMIN B12 (BEAKER) (test code = 178 pg/mL 213-816 L 774) [id number] 06:57:00 Test Item Value Reference Range Interpretation Comments FERRITIN (BEAKER) (test code = 361) 21 ng/mL 5-275 FOLATE, [id number] 06:57:00 Test Item Value Reference Range Interpretation [...] 28 % 20-55 (test code = 2590) [id number] 05:59:00 Test Item Value Reference Range Interpretation Comments MAGNESIUM (BEAKER) (test code = 1.7 mg/dL 1.6-2.6 627) BASIC METABOLIC [id number] 05:59:00 Test Item Value Reference Range Interpretation [...] FOR DIALYSIS PATIEN TS. Specimen slightly ictericLIPID [id number] 05:59:00 Test Item Value Reference Range Interpretation [...] Very High >=190 Specimen slightly ictericHEPATIC FUNCTION [id number] 05:59:00 Test Item Value Reference Range Interpretation [...] = 41 U/L 6-55 347) Specimen slightly [id number] 05:59:00 Test Item Value Reference Range Interpretation Comments LIPASE (BEAKER) (test code = 749) 35 U/L 8-78 Specimen slightly ictericPROTHROMBIN TIME/[id number] 05:58:00 Test Item Value Reference Range Interpretation [...] mechanical heart valves.CBC W/PLT COUNT & AUTO [id number] 05:37:00 Test Item Value Reference Range Interpretation [...] PERCENT (BEAKER) (test code = 2801) POCT-HEMOGLOBIN [id number] 06:12:00 Test Item Value Reference Range Interpretation Comments POC-HEMOGLOBIN METER 8.6 g/dL 12.0-15.0 L TESTED AT [facility] 6720 (BEAKER) (test code = [place] [address] 1539)"
[2021-12-09 14:38] LABS: Urine Blood Negative (Negative); Urine Glucose Negative (Negative); Urine Protein Negative (Negative); Urine pH 7.5 (5.0-7.0)
[2021-12-09 16:09] LABS: Absolute Lymphocytes (CBC) 0.5 K/uL (0.7-4.9); Hematocrit 30.8 % (36.0-45.0); Lymphocytes % 22.4 % (15.3-44.8); MCV 84.4 fL (80-100); MPV 7.9 fL (7.6-11.3); RBC Red Blood Cell Count 3.65 M/uL (3.86-4.86)
[2021-12-09 16:20] LABS: Bilirubin Total 1.8 mg/dL (0.2-1.0); Potassium 3.9 mmol/L (3.5-5.1); Protein, Total 6.6 g/dL (6.4-8.2)
--- NOTE | 2021-12-09 17:40 | RAD REPORT ---
EXAM DESCRIPTION: CT - Abdomen Pelvis W Contrast - 12/09/2021 5:26 pm CLINICAL HISTORY: Abdominal pain/epigastric pain COMPARISON: November 26, 2021 TECHNIQUE: Computed axial tomography of the abdomen pelvis was obtained. 100 cc Isovue-300 was admin istered intravenously. Oral contrast was not requested which limits evaluation of bowel and appendix All CT scans are performed using dose optimization technique as appropriate and may include automated exposure control or mA/KV adjustment according to patient size. FINDINGS: A cirrhotic liver. Cholecystectomy. Pancreas, adrenals and kidneys grossly normal. Stable splenic peripherally calcified arterial aneurysm Spleen measures 20 centimeters. No adnexal mass. Tiny umbilical hernia. Chronic stranding within the mesenteric right lower quadrant. Moderate amount stool colon There is no evidence of diverticulitis. IMPRESSION: Cirrhosis with splenomegaly Moderate amount stool within the colon
[2021-12-09] MEDS ORDERED: PROMETHAZINE INJ 25 MG/ML AMP ONE (18:14)
[2021-12-09] MEDS ORDERED: FENTANYL CITR 100 MCG/2 ML ONE (18:16)
--- NOTE | 2021-12-09 18:31 | ER ---
Nurse's Notes [facility] Name: Zenaida Goss Age: 61 yrs Sex: Female : 1960 Arrival Date: 12/09/2021 Time: 13:56 Bed 28 Private MD: Madhu Albarado R Diagnosis: Epigastric pain;Epigastric abdominal tenderness;Other cirrhosis of liver;Splenomegaly, not elsewhere classified Presentation: 12/09 14:14 Chief complaint:. Ebola Screen: Patient negative for fever greater than or equal to tp1 101.5 degrees Fahrenheit, and additional compatible Ebola Virus Disease symptoms Patient denies exposure to infectious person. Patient denies travel to an Ebola-affected area in the 21 days before illness onset. Initial Sepsis Screen: Does the patient meet any 2 criteria? No. Patient's initial sepsis screen is negative. Does the patient have a suspected source of infection? No. Patient's initial sepsis screen is negative. Risk Assessment: Do you want to hurt yourself or someone else? Patient reports no desire to harm self or others. 14:14 Method Of Arrival: Ambulatory tp1 14:17 Chief complaint: Patient states: CO dull continuous Right upper and lower quadrant tp1 pain, radiated to the right side of the back that started yesterday , 01/18. Reports N/V, denies diarrhea or burning with urination. was hospitalized 11/16 for endoscopy to remove polyps. PT has esophageal varacies. Coronavirus screen: Vaccine status: Patient reports receiving the 2nd dose of the covid vaccine. Onset of symptoms was December 08, 2021. 14:17 Acuity: TANK 3 tp1 Triage Assessment: 14:21 General: Appears in no apparent distress. uncomfortable, Behavior is calm, cooperative. tp1 Pain: Complains of pain in right upper quadrant and right lower quadrant Pain radiates to right mid back Pain currently is 10 out of 10 on a pain scale. Quality of pain is described as dull, Pain began 2-3 days ago. GI: Abd is soft Abdomen is tender to palpation in right upper quadrant and right lower quadrant Reports diarrhea, nausea, vomiting. Musculoskeletal: Circulation, motion, and sensation intact. Historical: - Allergies: 14:21 Demerol; tp1 14:21 Morphine (Anaphylaxis); tp1 14:21 Zofran; tp1 - Home Meds: 14:21 Lactulose Oral once daily [Active]; pantoprazole oral [Active]; Creon Oral [Active]; tp1 Furosemide Oral [Active]; spironolactone 25 mg Oral tab 1 tab once daily [Active]; - PMHx: 14:21 polyp; esophageal varacies; r breast cancer; tp1 - PSHx: 14:21 right lymphectomy; Appendectomy; Cholecystectomy; right knee surgery; tp1 - Immunization history:: Client reports receiving the 2nd dose of the Covid vaccine. - Social history:: Smoking status: Patient denies any tobacco usage or history of. Screenin:02 Abuse screen: Denies threats or abuse. Denies injuries from another. Nutritional hb screening: No deficits noted. Tuberculosis screening: No symptoms or risk factors identified. Fall Risk None identified. Assessment: 15:45 General: Appears in no apparent distress. Behavior is calm, cooperative. Pain: Pain hb currently is 6 out of 10 on a pain scale. 15:45 Neuro: Level of Consciousness is awake, alert, obeys commands, Oriented to person, hb place, time, situation. Cardiovascular: Patient's skin is warm and dry. Respiratory: Respiratory effort is even, unlabored, Respiratory pattern is regular, symmetrical. GI: Reports upper abdominal pain. : No signs and/or symptoms were reported regarding the genitourinary system. EENT: No signs and/or symptoms were reported regarding the EENT system. Derm: Skin is pink, warm \T\ dry. Musculoskeletal: No signs and/or symptoms reported regarding the musculoskeletal system. 16:14 Reassessment: Unable to establish PIV access, Dr. Baldwin notified. hb 17:24 Reassessment: Patient appears in no apparent distress at this time. Patient and/or hb family updated on plan of care and expected duration. Pain level reassessed. Patient is alert, oriented x 3, equal unlabored respirations, skin warm/dry/pink. 18:18 Reassessment: Patient appears in no apparent distress at this time. Patient and/or hb family updated on plan of care and expected duration. Pain level reassessed. Patient is alert, oriented x 3, equal unlabored respirations, skin warm/dry/pink. Vital Signs: 14:17 BP 134 / 63; Pulse 80; Resp 16; Temp 97.9; Pulse Ox 100% on R/A; Weight 113.4 kg; tp1 Height 5 ft. 4 in. (162.56 cm); 16:14 BP 129 / 58; Pulse 61; Resp 16; Pulse Ox 99% on R/A; hb 18:18 BP 128 / 62; Pulse 64; Resp 15; Pulse Ox 100% on R/A; Pain 7/10; hb 14:17 Body Mass Index 42.91 (113.40 kg, 162.56 cm) tp1 ED Course: 13:56 Patient arrived in ED. rg4 13:56 Madhu Albarado MD is Private Physician. rg4 14:05 Grant Baldwin DO is Attending Physician. ms3 14:16 Arm band placed on. tp1 14:21 Triage completed. tp1 14:27 June Souza RN is Primary Nurse. hb 16:02 Patient has correct armband on for positive identification. hb 17:02 Inserted saline lock: 24 gauge in left hand, using aseptic technique. hb 17:28 CT Abd/Pelvis - IV Contrast Only In Process Unspecified. EDMS 18:49 No provider procedures requiring assistance completed. IV discontinued, intact, hb bleeding controlled, No redness/swelling at site. Administered Medications: 18:18 Drug: fentaNYL (PF) 50 mcg Route: IVP; Site: left hand; hb 18:18 Drug: Phenergan (promethazine) 25 mg Route: IM; Site: affected area; hb Medication: 16:03 VIS not applicable for this client. hb Outcome: 18:30 Discharge ordered by . ms3 18:49 Discharged to home ambulatory. hb 18:49 Condition: stable 18:49 Discharge instructions given to patient, Instructed on discharge instructions, follow up and referral plans. medication usage, Demonstrated understanding of instructions, follow-up care, medications. 18:50 Patient left the ED. hb Signatures: Dispatcher [employer] EDMS June Souza RN RN [place] rg4 Grant Baldwin DO DO ms3 Kenna Blanchard RN RN tp1 Corrections: (The following items were deleted from the chart) 14:22 14:11 The history from the nurse's notes was reviewed and I agree with what is ms3 documented. ms3
--- NOTE | 2021-12-09 18:31 | EDPHYS ---
Physician Documentation [facility] Name: Zenaida Goss Age: 61 yrs Sex: Female : 1960 Arrival Date: 12/09/2021 Time: 13:56 Bed 28 Private MD: Madhu Albarado R ED Physician Grant Baldwin HPI: 12/09 14:11 This 61 yrs old Female presents to ER via Unassigned with complaints of Back ms3 Pain, Nausea. 14:21 64-year-old female with past medical history of liver cirrhosis, pancreatitis presents ms3 for epigastric abdominal pain that is rated 10/10 and burning. Patient states she was recently discharged from [facility] last week with a diagnosis of peptic ulcers. Patient states she has a known history of pancreatitis and these feelings are similar. Patient denies alleviating or inciting factors. Patient endorses nausea, vomiting. Patient denies fevers or chills.. Historical: - Allergies: 14:21 Demerol; tp1 14:21 Morphine (Anaphylaxis); tp1 14:21 Zofran; tp1 - Home Meds: 14:21 Lactulose Oral once daily [Active]; pantoprazole oral [Active]; Creon Oral [Active]; tp1 Furosemide Oral [Active]; spironolactone 25 mg Oral tab 1 tab once daily [Active]; - PMHx: 14:21 polyp; esophageal varacies; r breast cancer; tp1 - PSHx: 14:21 right lymphectomy; Appendectomy; Cholecystectomy; right knee surgery; tp1 - Immunization history:: Client reports receiving the 2nd dose of the Covid vaccine. - Social history:: Smoking status: Patient denies any tobacco usage or history of. ROS: 14:11 Constitutional: Negative for fever, and chills. Neck: Negative for injury, pain, and ms3 swelling, Cardiovascular: Negative for chest pain, and palpitations. Respiratory: Negative for shortness of breath, cough, wheezing, and pleuritic chest pain. 14:11 Skin: Negative for injury, rash, and discoloration, Neuro: Negative for headache, weakness, numbness, tingling. Psych: Negative for depression, anxiety, suicide ideation, homicidal ideation, and hallucinations. 14:11 Back: Positive for flank pain. 14:11 All other systems are negative. 14:21 Abdomen/GI: Positive for abdominal pain, nausea and vomiting. ms3 Exam: 14:11 Constitutional: This is a well developed, well nourished patient who is awake, alert, ms3 and in no acute distress. Head/Face: Normocephalic, atraumatic. Neck: Trachea midline, no cervical lymphadenopathy. Supple, full range of motion without nuchal rigidity, or vertebral point tenderness. No Meningismus. Chest/axilla: Normal chest wall appearance and motion. Nontender with no deformity. Cardiovascular: Regular rate and rhythm with a normal S1 and S2. No gallops, murmurs, or rubs. Normal PMI, no JVD. No pulse deficits. Respiratory: Lungs have equal breath sounds bilaterally, clear to auscultation and percussion. No rales, rhonchi or wheezes noted. No increased work of breathing, no retractions or nasal flaring. Back: No spinal tenderness. No costovertebral tenderness. Full range of motion. Skin: Warm, dry with normal turgor. Normal color with no rashes, no lesions, and no evidence of cellulitis. Neuro: Awake and alert, GCS 15, oriented to person, place, time, and situation. Cranial nerves II-XII grossly intact. Motor strength 5/5 in all extremities. Sensory grossly intact. Cerebellar exam normal. Normal gait. Psych: Awake, alert, with orientation to person, place and time. Behavior, mood, and affect are within normal limits. 14:21 Abdomen/GI: Inspection: abdomen appears normal, Bowel sounds: normal, Palpation: ms3 moderate abdominal tenderness, in the epigastric area. Vital Signs: 14:17 BP 134 / 63; Pulse 80; Resp 16; Temp 97.9; Pulse Ox 100% on R/A; Weight 113.4 kg; tp1 Height 5 ft. 4 in. (162.56 cm); 16:14 BP 129 / 58; Pulse 61; Resp 16; Pulse Ox 99% on R/A; hb 18:18 BP 128 / 62; Pulse 64; Resp 15; Pulse Ox 100% on R/A; Pain 7/10; hb 14:17 Body Mass Index 42.91 (113.40 kg, 162.56 cm) tp1 MDM: 14:17 Patient medically screened. ms3 19:50 Differential diagnosis: Pancreatitis vs Obstruction vs Gastritis vs PUD. Data reviewed: ms3 vital signs, nurses notes, lab test result(s), radiologic studies, and as a result, I will discharge patient. Counseling: I had a detailed discussion with the patient and/or guardian regarding: the historical points, exam findings, and any diagnostic results supporting the discharge/admit diagnosis, lab results, radiology results, the need for outpatient follow up, to return to the emergency department if symptoms worsen or persist or if there are any questions or concerns that arise at home. Special discussion: I discussed with the patient/guardian in detail that at this point there is no indication for admission to the hospital. It is understood, however, that if the symptoms persist or worsen the patient needs to return immediately for re-evaluation. 12/09 14:38 Order name: Urine Dipstick-Ancillary; Complete Time: 15:24 EDNY 12/09 15:25 Order name: CBC with Diff ms3 12/09 15:24 Order name: CT Abd/Pelvis - IV Contrast Only; Complete Time: 17:55 ms3 12/09 15:25 Order name: CMP; Complete Time: 16:27 ms3 12/09 15:25 Order name: Lipase; Complete Time: 16:27 ms3 12/09 15:25 Order name: IV Saline Lock; Complete Time: 18:18 ms3 12/09 15:25 Order name: Labs collected and sent; Complete Time: 16:16 ms3 Administered Medications: 18:18 Drug: fentaNYL (PF) 50 mcg Route: IVP; Site: left hand; hb 18:18 Drug: Phenergan (promethazine) 25 mg Route: IM; Site: affected area; hb Disposition Summary: 12/09/21 18:30 Discharge Ordered Location: Home ms3 Condition: Stable ms3 Diagnosis - Epigastric pain ms3 - Epigastric abdominal tenderness ms3 - Other cirrhosis of liver ms3 - Splenomegaly, not elsewhere classified ms3 Followup: ms3 - With: Private Physician - When: 48 Hours - Reason: Recheck today's complaints Forms: - Medication Reconciliation Form ms3 - Thank You Letter ms3 - Antibiotic Education ms3 - Prescription Opioid Use ms3 Signatures: [facility] June Souza RN RN Grant Baldwin DO DO ms3 Kenna Blanchard RN RN tp1 Corrections: (The following items were deleted from the chart) 14:19 14:11 61-year-old male with past medical history of vertebral disc disease presents for ms3 left flank pain that began yesterday. Patient states the pain is currently a 4/10 and described as shooting. Patient states the pain is worse with movement. Patient denies alleviating factors. Patient denies nausea, vomiting, fevers, chills, abdominal pain, numbness, weakness, urinary or bladder incontinence.. ms3 14:19 14:11 61-year-old male with past medical history of vertebral disc disease presents for ms3 left flank pain that began yesterday. Patient states the pain is currently a 4/10 and described as shooting. Patient states the pain is worse with movement. Patient denies alleviating factors. Patient denies nausea, vomiting, fevers, chills, abdominal pain, numbness, weakness, urinary or bladder incontinence.. ms3 14:19 14:19 61-year-old male with past medical history of vertebral disc disease presents for ms3 left flank pain that began yesterday. Patient states the pain is currently a 4/10 and described as shooting. Patient states the pain is worse with movement. Patient denies alleviating factors. Patient denies nausea, vomiting, fevers, chills, abdominal pain, numbness, weakness, urinary or bladder incontinence.. ms3 14:22 14:11 The history from the nurse's notes was reviewed and I agree with what is ms3 documented. ms3 14:23 14:11 Constitutional: Negative for fever, and chills. Neck: Negative for injury, pain, ms3 and swelling, Cardiovascular: Negative for chest pain, and palpitations. Respiratory: Negative for shortness of breath, cough, wheezing, and pleuritic chest pain, Abdomen/GI: Negative for abdominal pain, nausea, vomiting, diarrhea, and constipation, ms3 14:23 14:11 Skin: Negative for injury, rash, and discoloration, Neuro: Negative for headache, ms3 weakness, numbness, tingling. Psych: Negative for depression, anxiety, suicide ideation, homicidal ideation, and hallucinations, ms3 14:24 14:11 Constitutional: This is a well developed, well nourished patient who is awake, ms3 alert, and in no acute distress. Head/Face: Normocephalic, atraumatic. Neck: Trachea midline, no cervical lymphadenopathy. Supple, full range of motion without nuchal rigidity, or vertebral point tenderness. No Meningismus. Chest/axilla: Normal chest wall appearance and motion. Nontender with no deformity. Cardiovascular: Regular rate and rhythm with a normal S1 and S2. No gallops, murmurs, or rubs. Normal PMI, no JVD. No pulse deficits. Respiratory: Lungs have equal breath sounds bilaterally, clear to auscultation and percussion. No rales, rhonchi or wheezes noted. No increased work of breathing, no retractions or nasal flaring. Abdomen/GI: Soft, non-tender, with normal bowel sounds. No distension or tympany. No guarding or rebound. No evidence of tenderness throughout. Back: No spinal tenderness. No costovertebral tenderness. Full range of motion. Skin: Warm, dry with normal turgor. Normal color with no rashes, no lesions, and no evidence of cellulitis. Neuro: Awake and alert, GCS 15, oriented to person, place, time, and situation. Cranial nerves II-XII grossly intact. Motor strength 5/5 in all extremities. Sensory grossly intact. Cerebellar exam normal. Normal gait. Psych: Awake, alert, with orientation to person, place and time. Behavior, mood, and affect are within normal limits. ms3 17:25 16:14 Abdomen Pelvis Wo Con+CT.RAD.BRZ ordered. EDMS EDMS
[2021-12-09 19:02] VITALS: TEMP 97.9
[2021-12-09 19:20] VITALS: BP 128/62; O2SAT 100
[2021-12-09 21:06] LABS: Anisocytosis SLIGHT; Blood Morphology Comment NOTED (NOT SEEN); Platelet Estimate DECR; White Blood Cell Scan OK (OK)
== END 2021-12-09 18:50 | disposition home or self-care (01) ==
LOC: ER 13:54
DX: K74.69 Other cirrhosis of liver (principal); R16.1 Splenomegaly, not elsewhere classified; Z85.3 Personal history of malignant neoplasm of breast; R10.13 Epigastric pain; Z88.5 Allergy status to narcotic agent; Z88.8 Allergy status to other drugs, medicaments and biological substances
CPT/HCPCS: 36415; 74177; 80053; 81003; 83690; 85025; J2550; J3010; Q9967

== ENCOUNTER 2021-12-31 04:01 | Emergency (ER) | payer OTHER ==
--- OUTSIDE RECORDS SUMMARY | 2021-12-31 04:13 | XMS REPORT | Continuity of Care Document ---
:1960 Author Organization [facility] t Address [address] [place] [address] Care Team Providers Name Role Phone Madhu Miranda Primary Care Physician Unavailable Madhu Miranda Attending Clinician Unavailable Annalise Souza Attending Clinician Unavailable Whitleyrer Stevo HAILE Attending Clinician Ara HENSLEY, Jeremy Desouza Attending Clinician [phone] Sylvia HENSLEY, Bebeto Attending Clinician Nafisa HENSLEY, Jefferson Lisa Attending Clinician Jose HENSLEY, Willian Snowden Attending Clinician Nancy HENSLEY, Nakia Attending Clinician Ronnie HENSLEY, Mahnaz Attending Clinician Feng Burgos Attending Clinician Elias Guzman MD Attending Clinician Sharita Suresh MD Attending Clinician [phone] Rafael Blackwood MD Attending Clinician Aziza Cordero MD Attending Clinician Sukhdev SOTO Attending Clinician Unavailable Sukhdev Fajardo Attending Clinician Doctor Unassigned, [place] Attending Clinician Unavailable [facility] Attending Clinician Unavailabl e IBIKUNLE, FOLUSHO F Attending Clinician Unavailable Ibikunle RETAIL OPERATIONS MANAGER, Folusho F Attending Clinician Frances Cruz RN Attending Clinician Unavailable LEXIE SHEFFIELD Attending Clinician Unavailable Only, Ang Db Test Attending Clinician Unavailable Unknown, Attending Attending Clinician Unavailable GARTH CARLOS Attending Clinician Unavailable Claudia REYES, Madiha Mittal Attending Clinician Rene Evans MD Attending Clinician Shaina Pinto MD Attending Clinician MD NAKIA CRUZ Attending Clinician Unavailable TERRI GERMAN Attending Clinician Unavailable MD SHARITA SURESH Attending Clinician Unavailable MD JEREMY SANDOVAL Attending Clinician Unavailable Lab, [facility] Attending Clinician Unavailable Dulce Miller Attending Clinician Jovanny Alexandra RN Attending Clinician Unavailable SHAINA PINTO Attending Clinician Unavailable AVI DAVEY Attending Clinician Unavailable DRE MAYER Attending Clinician Unavailable JEREMY SANDOVAL Admitting Clinician Unavailable REHRESami, DO STEVO DELVALLE Admitting Clinician Unavailable NAKIA CRUZ Admitting Clinician Unavailable Sukhdev SOTO Admitting Clinician Unavailable AZALEA GREEN Admitting Clinician Unavailable SHARITA SURESH Admitting Clinician Unavailable GARTH CARLOS Admitting Clinician Unavailable BEBETO WARD Admitting Clinician Unavailable Shaina Pinto MD Admitting Clinician MD SHARITA SURESH Admitting Clinician Unavailable MD BEBETO WARD Admitting Clinician Unavailable MD JEREMY SANDOVAL Admitting Clinician Unavailable MD NAKIA CRUZ Admitting Clinician Unavailable SHAINA PINTO Admitting Clinician Unavailable AVI DAVEY Admitting Clinician Unavailable DRE MAYER Admitting Clinician Unavailable Payers Payer Name Policy Type Policy Number Effective Date Expiration Date Deshawn blancas [facility] [id number] 2019 CHOICE 00:00:00 Problems Condition Condition Condition Status Onset Resolution Last Treating Co mments Source Name Details Category Date Date Treatment Clinician Date Intractabl Intractabl Disease Active M ethodi e e 9 st abdominal abdominal 00:00: [facility] pain pain 00 l Acute Acute Disease Active Methodi upper GI upper GI 11-26 st bleed bleed 00:00: Hospita 00 l Anemia Anemia Disease Active Overview: Method i 11-[address] 00:00: g of this Hospita 00 note l might be different from the original. Added automatic ally from request for surgery [id number] Pancolitis Pancolitis Disease Active U nivers 6-21 ity of 00:00: [place] 00 Medical Branch Arrhythmia Arrhythmia Disease Active U nivers 6-21 ity of 00:00: [place] 00 Medical Branch Ventricula Ventricula Disease Active U nivers r r 6-21 ity of tachycardi tachycardi [place] Other Other Disease Active Univers cirrhosis cirrhosis 6-21 ity of of liver of liver 00:00: 00 Medical Branch ANAYA ANAYA Disease Active Univers (nonalcoho (nonalcoho 6-21 it y of lic lic 00:00: [place] steatohepa steatohepa 00 Me dical titis) titis) Branch Hypokalemi Hypokalemi Disease Active U nivers a a 6-21 ity of 00:00: [place] 00 Medical Branch Acute Acute Disease Active Univers colitis colitis 6-21 ity of 00:00: [place] 00 Medical Branch Abdominal Abdominal Disease Active Met hodi pain, pain, 3-02 st acute acute 00:00: Hospita 00 l Liver Liver Disease Active Methodi cirrhosis cirrhosis 3 st 00:00: Hospita 00 l Epigastric Epigastric Disease Active M ethodi pain pain 3 st 00:00: Hospita 00 l Pancreatit Pancreatit Disease Active 2019-04 M ethodi is due to is due to 05-20 common common 00:00: Hospita bile duct bile duct 00 l stone stone Disorder Disorder Disease Active 2019-04 Metho di of liver of liver 05-15 st 00:00: Hospita 00 l Acute Acute Disease Active 2019-04 Methodi pancreatit pancreatit 05-15 is without is without 00:00: Ho spita infection infection 00 l or or necrosis necrosis SBO (small SBO (small Disease Active U nivers bowel bowel 08-09 ity of obstructio obstructio [place] [facility] Increased Increased Disease Active [facility]30 [facility] Epigastric Epigastric Disease Active [facility] abdominal abdominal 09-30 [facility] pain pain 00:[facility]: [facility] 00 Center Other Other Disease Active [facility] cirrhosis cirrhosis 09-30 [facility] of liver of liver 00:00: Medica l 00 Center Intractabl Intractabl Disease Active U nivers e nausea e nausea 501 ity of and and 00:00: [place] vomiting [...] of - [facility] right knee right knee [facility] Primary Primary Diagnosis Active 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 of itis of - [facility] left knee left knee [facility] Allergies, Adverse Reactions, Alerts Allergy Allergy Status Severity Reaction(s) Onset Inactive Treating Comm ents Source Name Type Date Date Clinician Mikaelamosami Ledesma Active Rash Univer s phone ty to 09-30 ity of adverse 00:00: [place] reaction 00 Medical s Branch HYDROMOR DRUG Active Rash Univers PHONE INGREDI 09-30 ity of 00:00: [place] 00 Medical Branch Hydromor Propensi Active Itching Metho di phone ty to [address] st adverse 00:00: Hospita reaction 00 l s to drug Morphine Propensi Active Other (See 2019-04 Tightness Methodi ty to Comments) 2-[address] adverse 00:00: Hospita reaction [...] of 00:00: [place] 00 Medical Branch MORPHINE Adverse Active Info Not Commo n Reaction Available [facility] t - [facility] Social History Social Habit Start Date Stop Date Quantity Comments Source History [facility] Alcohol Std Drinks History [facility] Alcohol Binge Alcohol intake 2021-12-16 2021-12-16 [facility] 00:00:00 00:00:00 non-drinker (finding) Exposure to 2021-09-18 2021-09-28 Not sure [facility] SARS-CoV-2 00:00:00 21:57:00 [place] [facility] (event) Branch History SDOH 2020-03-19 2020-03-19 [facility] Alcohol Frequency 00:00:00 00:00:00 Tobacco use and 2016-06-30 2016-06-[address] [facility] [address] [facility] kes exposure 00:00:00 00:00:00 [facility] Sex Assigned At [birth year] [facility] 00:00:00 00:00:00 Smoking Status Start Date Stop Date Source Never smoked tobacco [facility] Medications Ordered Filled Start Stop Current Ordering Indication Dosage Frequency Signature Comments Components Source Medication Medication Date Date Medication? Clinician (SIG) Name Name riFAXimin 2022-0 Yes 550mg Q.5D Take 1 Metho di (XIFAXAN) 12-[address] 550 mg 17:46: (550 mg Hospita tablet 30 total) by l mouth 2 (two) times a day. pancrelipas 2021- Yes 2{capsu Q.[id number] Take 2 Methodi e, 12-18 le} [id number] capsules st lipase-prot 00:00: 04:59 3D by mouth 3 Hospita ease-amylas 00 :00 (three) l e, (CREON) times a 6,000-19,00 day with 0 -30,000 meals for unit 30 days. capsule,del ayed release(DR/ EC) capsule methocarbam 2021- Yes 500mg Q.[id number] Take 1 Methodi oL 12-[id number] (ROBAXIN) 00:00: 04:59 3D (500 mg [facility] 500 MG 00 :00 total) by l tablet mouth 3 (three) times a day as needed (abdominal cramping) for up to 30 days. [place]DROcod[place] 2021- [place] [id number] 1{tbl} Q6H Take 1 Methodi -acetaminop 12-[address] [facility] (NORCO) 00:00: 04:59 mouth [facility] 10-325 mg 00 :00 every 6 l per tablet (six) hours as needed for severe pain for up to 10 days .acute pain. Max Daily Amount: 4 tablets riFAXimin Yes 550mg Q.5D Take 1 Metho di (XIFAXAN) - tablet st 550 mg 14:06: (550 mg Hospita tablet 05 total) by l mouth 2 (two) times a day. pantoprazol 2021- No 40mg QD Take 1 Met hodi e 12-04-25 tablet (40 st (PROTONIX) 14:06: 00:00 mg total) H ospita 40 MG EC 05 :00 by mouth l tablet daily. pantoprazol 2021- No 40mg QD Take 1 Met hodi e 12-04-25 tablet (40 st (PROTONIX) 14:06: 00:00 mg total) H ospita 40 MG EC 05 :00 by mouth l tablet daily. zinc 2021- Yes 1{capsu QD Take 1 Methodi sulfate 12-04 le} capsule by st (ZINCATE) 00:00: 04:59 mouth Hospit a 50 mg zinc 00 :00 daily for l (220 mg) 30 days. capsule zinc 2021- Yes 1{capsu QD Take 1 [...] 1g Q.25D Take 10 mL Methodi (CARAFATE) 12-03- (1 g st 100 mg/mL 00:00: 04:59 total) by Ho spita suspension 00 :00 mouth 4 l (four) times a day before meals and nightly for 30 days. furosemide 2021- Yes 40mg Q.5D Take 1 [...] meals and nightly for 30 days. HYDROcodone 2021-2021- [place] [id number] 1{tbl} Q6H Take 1 Methodi -acetaminop 8-25 09-[address] [facility] ([employer]) 00:00: 00:00 mouth [facility] 10-325 mg 00 :00 every 6 l per tablet (six) hours as needed for severe pain for up to 10 days .acute pain. Max Daily Amount: 4 tablets HYDROcodone 2021- Yes [id number] 1{tbl} Q6H Take 1 Methodi -acetaminop 8-25 -[address] hen ([employer]) 00:00: 04:59 mouth [facility] 10-325 mg 00 :00 every 6 l per tablet (six) hours as needed for severe pain for up to 10 days .acute pain. Max Daily Amount: 4 tablets pancrelipas 2021- No 1{capsu Q.[id number] Take 1 Methodi e, 8 08-18 le} [id number] capsule by lipase-prot 20:41: 00:00 3D mouth 3 Ho spita ease-amylas 22 :00 (three) l e, (CREOND) times a 12,000-38,0 day with 00 -60,000 meals. unit capsule,del ayed release(DR/ EC) capsule pancrelipas 2021- No 1{capsu Q.[id number] Take 1 Methodi e, - 08-18 le} [id number] capsule by lipase-prot 20:41: 00:00 3D mouth [...] ta 06 :00 l spironolact 2021- No 25mg QD Take 25 mg Methodi one 10-[address] (ALDACTONE) 14:44: 00:00 daily. Hos alvaro 25 MG 06 :00 l tablet furosemide 2021- No 20mg QD Take 20 mg Methodi (LASIX) 20 10-[address] mg tablet 14:44: 00:00 daily. Hospi ta 06 :00 l spironolact 2021- No 50mg Q.5D Take 1 Met hodi one 10-26 08-25 tablet (50 st (ALDACTONE) 00:00: 00:00 mg total) Hospita 50 MG 00 :00 by mouth 2 l tablet (two) times a day for 30 days. furosemide 2021- No 40mg Q.5D Take 1 Meth dimitri (Lasix) 40 10-26-25 tablet (40 st mg tablet 00:00: 00:00 mg total) Ho spita 00 :00 by mouth 2 l (two) times a day for 30 days. spironolact 2021- No 50mg Q.5D Take 1 Met hodi one 10-26-25 tablet (50 st (ALDACTONE) 00:00: 00:00 mg total) Hospita 50 MG 00 :00 by mouth 2 l tablet (two) times a day for 30 days. furosemide 2021- No 40mg Q.5D Take 1 Meth dimitri (Lasix) 40 10-26 08-25 tablet (40 st mg tablet 00:00: 00:00 mg total) Ho spita 00 :00 by mouth 2 l (two) times a day for 30 days. acetaminoph 2021- No 1{tbl} 1 tablet, Univers en-codeine 09-29 Oral, ity of (TYLENOL 06:00: 05:02 ONCE, 1 [place] #3) 300-30 00 :00 dose, On Medic al mg tablet 1 Tue Branch tablet 09/29/21 at 0100, VERN naproxen 2021- No 500mg 500 mg, Univ ers (NAPROSYN) 09-29 Oral, ity of tablet 500 06:00: 04:58 ONCE, 1 [place] as mg 00 :00 dose, On Medical Tue Branch 09/29/21 at 0100, Routine naproxen Yes [id number] 500mg Take 1 Univers (NAPROSYN) 6- 9104 tablet by ity of 500 mg [...] 04/02/21 at 1445, VERN ondansetron 2020-04 Yes [id number] 4mg Take 1 Univers 4 mg 2-23 tablet by ity of disintegrat 00:00: mouth [place] ing tablet 00 every 8 Medica l (eight) Branch hours as needed for Nausea and Vomiting (N/V). ondansetron 2020-04 Yes [id number] 4mg Take 1 Univers 4 mg 2-23 tablet by ity of disintegrat 00:00: mouth [place] ing tablet 00 every 8 Medica l (eight) Branch hours as needed for Nausea and Vomiting (N/V). ondansetron 2020-04 Yes [id number] 4mg Take 1 Univers 4 mg 2-23 tablet by ity of disintegrat 00:00: mouth [place] ing tablet 00 every 8 Medica l (eight) Branch hours as needed for Nausea and Vomiting (N/V). ondansetron 2020-04 Yes [id number] 4mg Take 1 Univers 4 mg 2-23 tablet by ity of disintegrat 00:00: mouth [place] ing tablet 00 every 8 Medica l (eight) Branch hours as needed for Nausea and Vomiting (N/V). polyethylen 2020-04 No 17g QD Take 17 g Methodi e glycol 04-23 12-[address] (MIRALAX) 00:00: 05:59 daily for Ho spita 17 gram 00 :00 30 days. l packet polyethylen 2020-04- No 17g QD Take 17 g Methodi e glycol 1-13 12-[address] (MIRALAX) 00:00: 05:59 daily for Ho spita 17 gram 00 :00 30 days. l packet magnesium 2020-04- No 296mL Take 1 Meth dimitri citrate 04-22-[address] solution 00:00: 00:00 (296 mL Hospi ta 00 :00 total) by l mouth once as needed (constipat ion) for up to 1 dose. magnesium 2020-04- No 296mL Take 1 Meth dimitri citrate 04-22-[address] solution 00:00: 00:00 (296 mL Hospi ta 00 :00 total) by l mouth once as needed (constipat ion) for up to 1 dose. docusate 2020-04- No 100mg Q.5D Take 1 Metho di sodium 04-22-[address] (Colace) 00:00: 05:59 (100 mg Hospi ta 100 MG 00 :00 total) by l capsule mouth 2 (two) times a day for 30 days. docusate 2020-04- No 100mg Q.5D Take 1 Metho di sodium 1- 12-[address] (Colace) 00:00: 05:59 (100 mg Hospi ta 100 MG 00 :00 total) by l capsule mouth 2 (two) times a day for 30 days. lactulose 2021- No 20g Q24H Take 30 mL M ethodi 10 gram/15 7-18 08-25 ([address] mL (15 mL) 00:00: 00:00 total) by H ospita solution 00 :00 mouth l daily as needed (2 to 3 soft stools per day). lactulose 2021- No 20g Q24H Take 30 mL M ethodi 10 gram/15 7-18 08-25 ([address] mL (15 mL) 00:00: 00:00 total) by H ospita solution 00 :00 mouth l daily as needed (2 to 3 soft stools per day). cholecalcif 2020- No [id number] 2000U Take 2 Univers nuno, 6-26 07-27 tablets by ity of vitamin D3, 00:00: 04:59 [place] 25 mcg 00 :00 daily for Medical (,000 30 days. Branch unit) tablet cyanocobala 2020- No [id number] 1000ug inject 1 Univers min 1,000 6-26 07-27 mL under ity o f mcg/mL 00:00: 04:59 the skin [place] injection 00 :00 every 24 Medica l (twenty- Branch ur) hours for 30 days. KCL 20 mEq 2020- No [id number] 20meq Take 1 Univers tablet 6-26 07-27 tablet by ity of 00:00: 04:59 mouth [place] 00 :00 daily for Medical 30 days. Branch cholecalcif 2020- No [id number] Take 2 Univers nuno, 6-26 07-27 tablets by ity of vitamin D3, 00:00: 04:59 mouth [place] 25 mcg 00 :00 daily for Medical (,000 30 days. Branch unit) tablet cyanocobala 2020- No [id number] 1000ug inject 1 Univers min 1,000 6-26 07-27 mL under ity o f mcg/mL 00:00: 04:59 the skin [place] injection 00 :00 every 24 Medica l (- Branch ur) hours for 30 days. KCL 20 mEq 2020- No [id number] 20meq Take 1 Univers tablet 6-26 07-27 [...] [place] ORAL) 48 :00 Medical Branch furosemide 0 2020- No 40mg Take 40 mg Univers [...] unresponsi ve to Ondansetro n proMETHazin Yes [id number] 12.5mg Take 1 Univers e 12.5 mg 6-25 tablet by ity o f tablet 00:00: mouth [place] 00 every 6 Medical (six) Branch hours as needed for Nausea and Vomiting (N/V) or N/V unresponsi ve to Ondansetro n. proMETHazin Yes [id number] 12.5mg Take 1 Univers e 12.5 mg 6-25 tablet by ity o f tablet 00:00: mouth [place] 00 every 6 Medical (six) Branch hours as needed for Nausea and Vomiting (N/V) or N/V unresponsi ve to Ondansetro n. proMETHazin Yes [id number] 12.5mg Take 1 Univers e 12.5 mg 6-25 tablet by ity o f tablet 00:00: mouth [place] 00 every 6 Medical (six) Branch hours as needed for Nausea and Vomiting (N/V) or N/V unresponsi ve to Ondansetro n. proMETHazin Yes [id number] 12.5mg Take 1 Univers e 12.5 mg 6-25 tablet by ity o f tablet 00:00: mouth [place] 00 every 6 Medical (six) Branch hours as needed for Nausea and Vomiting (N/V) or N/V unresponsi ve to Ondansetro n. proMETHazin Yes [id number] 12.5mg Take 1 Univers e 12.5 mg 6-25 tablet by ity o f tablet 00:00: mouth [place] 00 every 6 Medical (six) Branch hours as needed for Nausea and Vomiting (N/V) or N/V unresponsi ve to Ondansetro n. proMETHazin Yes [id number] 12.5mg Take 1 Univers e 12.5 mg 6-25 tablet by ity o f tablet 00:00: mouth [place] 00 every 6 Medical (six) Branch hours as needed for Nausea and Vomiting (N/V) or N/V unresponsi ve to Ondansetro n. proMETHazin Yes [id number] 12.5mg Take 1 Univers e 12.5 mg 6-25 tablet by ity o f tablet 00:00: mouth [place] 00 every 6 Medical (six) Branch hours as needed for Nausea and Vomiting (N/V) or N/V unresponsi ve to Ondansetro n. proMETHazin Yes [id number] 12.5mg Take 1 Univers e 12.5 mg 6-25 tablet by ity o f tablet 00:00: mouth [place] 00 every 6 Medical (six) Branch hours as needed for Nausea and Vomiting (N/V) or N/V unresponsi ve to Ondansetro n. proMETHazin Yes [id number] 12.5mg Take 1 Univers e 12.5 mg 6-25 tablet by ity o f tablet 00:00: mouth [place] 00 every 6 Medical (six) Branch hours as needed for Nausea and Vomiting (N/V) or N/V unresponsi ve to Ondansetro n. furosemide 2020-0 2020- No [id number] 40mg Take 1 Univers 40 mg 6-25 07-26 tablet by ity of tablet 00:00: 04:59 mouth [place] 00 :00 every Medical morning Branch and evening for 30 days. lipase-prot 2020- No [id number] 2{capsu Take 2 Univers ease-amylas 6-25 07-26 le} capsules ity of e 00:00: 04:59 by mouth 3 [place] 12,000-38,0 00 :00 (three) Medic al 00 -60,000 times Branch unit daily with capsule meals for 30 days. lactobacill 2020- No [id number] .5mg Take 1 Univers us 6-25 07-26 tablet by ity of acidophilus 00:00: 04:59 mouth 2 [place] 00 :00 (two) Medical times Branch daily for 30 days. furosemide 2020- No [id number] 40mg Take 1 Univers 40 mg 6-25 07-26 tablet by ity of tablet 00:00: 04:59 mouth [place] 00 :00 every Medical morning Branch and evening for 30 days. lipase-prot 2020- No [id number] 2{capsu Take 2 Univers ease-amylas 6-25 07-26 le} capsules ity of e 00:00: 04:59 by mouth 3 [place] 12,000-38,0 00 :00 (three) Medic al 00 -60,000 times Branch unit daily with capsule meals for 30 days. lactobacill 2020- No [id number] .5mg Take 1 Univers us 6-25 07-26 tablet by ity of acidophilus 00:00: 04:59 mouth 2 [place] 00 :00 (two) Medical times Branch daily for 30 days. vancomycin 2020- No [id number] 125mg Take 1 Univers 125 mg 6-25 07-06 capsule by ity of capsule 00:00: 04:59 mouth 4 [place] 00 :00 (four) Medical times Branch daily for 10 days. vancomycin 2020- No [id number] 125mg Take 1 Univers 125 mg 6-25 [...] [id number] 1{tbl} Take 1 U nivers -acetaminop -02 11-03 tablet by it y of hen 5-325 00:00: 04:59 mouth [place] mg tablet 00 :00 every 6 Medical (six) Branch hours as needed for Pain (scale 7-10) for up to 7 days. Indication s: acute pain cephALEXin 2020- No [id number] 500mg Take 1 Univers 500 mg 10-03 capsule by ity of capsule 00:00: 04:59 mouth 4 [place] 00 :00 (four) Medical times Branch daily for 5 days. cephALEXin 2020- No [id number] 500mg Take 1 Univers 500 mg 10-03 [...] Yes 40mg 40 mg, Unive rs (LASIX) 6-23 Oral, ity of tablet 40 14:00: QAM+PM, [place] mg 00 First dose Medical on Tue Branch 10/01/20 at 0900, Until Discontinu ed, Routine iron 2020- No 300mg 300 mg, IV Unive rs sucrose 09-30 Infusion, ity of (VENOFER) 21:30: 20:00 DAILY, [place] 300 mg in 00 :55 First dose Medi molly NaCl 0.9% on Tue Branch (NS) 250 mL 09/30/20 at infusion 1630, For 4 doses vancomycin Yes 125mg 125 mg, Uni vers (VANCOCIN) 09-30 Oral, QID, ity of capsule 125 21:15: First dose [place] mg 00 on [facility] 09/30/20 at Branch 1615, Until Discontinu ed, VERN
Fa culty member approving Non-formul mary medication : TOMASA RUCKER
Sami kelvin for non-formul mary use: SPECIFIC INDICATION FOR NONFORMULA RY PRODUCT
Reason for Anti-Infec tive: Documented Infection< br>Docu mented Infection Site: Abdominal< br>Duratio n of Therapy: 7 days proMETHazin 2020- No 12.5mg 12.5 mg, Univers e 09-30 IV ity of (PHENERGAN) 17:11: 19:59 Piggyback, [place] 12.5 mg in 58 :55 Q4HPRN, Medica l NaCl 0.9% Starting Branch (NS) 50 mL Tu IV 09/30/20 at piggyback 1211, Until Geraldine [...] 1615, Routine cholecalcif 0 Yes 2000U 2,000 [facility] ers nuno 09-29 Units, ity of (vitamin 20:00: Oral, [place] D3) tablet 00 DAILY, Medical 2,000 Units First dose Br anch on Tue09/29/20 at 1500, Until Discontinu ed, Routine lactobacill 0 Yes .5mg 0.5 mg, Uni vers us 09-29 Oral, BID, ity of acidophilus 14:15: First dose [place] tablet 0.5 00 on Tue Medical mg 09/29/20 at Branch 0915, Until Discontinu ed, Routine KCL 0 Yes 20meq 20 mEq, Univers (KLOR-CON 09-29 [...] Until Discontinu ed, Routine FENTanyl PF 0 2021- No 50ug 50 mcg, Un marline (SUBLIMAZE [...] Mon Branch 09/29/20 at 0230, Routine piperacilli 2020-2020- No [...] dose Medic al NaCl 0.9% on Tue (NS) 100 mL 09/29/20 at MINI-BAG 0145, [...] injection 4 17 Starting Medi molly mg Mon Branch 09/29/20 at 0142, Until Discontinu ed, Routine, Nausea and Vomiting (N/V) iopamidol 2020- No [id number] 100mL 100 mL, Univers (ISOVUE 09-29 Intravenou [...] Meloxicam 2019- No Gm 1 tablet Common 09-17 07- [facility] 00:00: 00:00 - [facility] 00 :00 [facility] flu vaccine 2019- No .5mL 0.5 mL, [...] Branch injection 1000, 120 mL Routine ondansetron 2020-0 Yes 4mg 4 mg, Slow Univers (ZOFRAN [...] Pain (scale 4-6). lactulose 2019-0 2020- No [id number] 30mL Take 30 mL Univers 10 gram/15 -09-10 by mouth 2 it y of mL oral 00:00: 04:59 (two) [place] solution 00 :00 times Medical daily for Branch 30 days. pantoprazol 2019-0 2020- No [id number] 40mg Take 1 Univers e 40 mg EC 5-05 17- tablet by ity of tablet 00:00: 04:59 mouth [place] 00 :00 daily for Medical 30 days. Branch lactulose 2019-0 2020- No [id number] 30mL Take 30 mL Univers 10 gram/15 5-09-10 by mouth 2 it y of mL oral 00:00: 04:59 (two) [place] solution 00 :00 times Medical daily for Branch 30 days. pantoprazol 2020-0 2020- No [id number] 40mg Take 1 Univers e 40 mg EC 08-10 tablet by ity of tablet 00:00: 04:59 mouth [place] 00 :00 daily for Medical 30 days. Branch propranolol 2019-0 2020- No [id number] 10mg Take 1 Univers 10 mg 08-10 [...] 0800, Until Discontinu ed, 100 mL LORazepam 0 2019- No .25mg 0.25 mg, Un marline (ATIVAN) 08-09 Slow IV ity of injection 11:00: 11:00 Push, [place] 0.25 mg 00 :00 ONCE, 1 Medical dose, Tue Branch 08/10/19 at 0600, Routine D5W-LR IV 2020-0 Yes 1000mL at 100 Univ ers infusion 5- mL/hr, IV ity of 1,000 mL 10:30: Infusion, [place] 00 CONTINUOUS Medical , Starting Branch Tue08/10/19 at 0530, Until Discontinu ed, Routine FENTanyl PF 2019-0 Yes 50ug 50 mcg, Uni vers (SUBLIMAZE 5- Slow IV ity of (PF)) 09:22: Push, [place] injection 46 Q4HPRN, Medical 50 mcg Starting Branch 08/10/19 at 0422, Until Discontinu ed, Routine, Pain (scale 4-6) ondansetron 2020- No 4mg 4 mg, Slow Univers (ZOFRAN 5- 05-02 IV Push, ity of (PF)) 08:55: 03:29 Q6HPRN, [place] injection 4 07 :20 Starting Medi molly mg Tue08/10/19 Branch at 0355, Until Tue08/10/19 at 2229, Routine, Nausea and Vomiting (N/V) lactulose Yes 10g Q.5D Take [address] (CEPHULAC) 6-25 by mouth 2 Lesly es 10 gram 17:37: (two) Medical packet 13 times Center daily . rifAXIMin Yes hepatic 550mg Q.5D Take [address] 550 mg Tab 6-25 encephalopa mg by L ukes 17:37: thy mouth 2 Medical 13 (two) Center times daily. lactulose Yes 10g Q.5D Take [address] (CEPHULAC) 6-25 by mouth 2 Lesly es 10 gram 17:37: (two) Medical packet 13 times Center daily . rifAXIMin Yes hepatic 550mg Q.5D Take [address] 550 mg Tab 6-25 encephalopa mg by L ukes 17:37: thy mouth 2 Medical 13 (two) Center times daily. ibuprofen 2020- No 600mg Take 1 Univ ers 600 mg -18 -02 tablet by ity of tablet 00:00: 00:00 mouth [place] 00 :00 every 6 Medical (six) Branch hours as needed for Pain (scale 4-6). cyclobenzap 2020- No 10mg Take 1 Uni vers rine 10 mg -18 05-02 tablet by ity of tablet 00:00: 00:00 mouth 3 [place] 00 :00 (three) Medical times Branch daily. traMADOL 2016-04 2020- No 50mg Take 1 Univer s (ULTRAM) 50 1-16 05-02 tablet by it y of mg tablet [...] Common e Sodium e Sodium Singh defined [facility] Acetaminoph Acetaminoph Yes Gm not Common en-Codeine en-Codeine Singh defined [facility] #3 #3 [facility] Oseltamivir Oseltamivir Yes Gm not Common Phosphate Phosphate Singh defined Sp cleopatra [facility] Levofloxaci Levofloxaci Yes Gm not Common n n Singh defined [facility] Xifaxan Xifaxan Yes Gm not Common Singh defined [facility] Lactulose Lactulose Yes Gm not Co mmon Singh defined [facility] Albuterol Albuterol Yes Gm not Co mmon Sulfate HFA Sulfate HFA Singh defined [facility] Azithromyci Azithromyci Yes Gm not Common n n Singh defined [facility] Amoxicillin Amoxicillin Yes Gm not Common -Pot -Pot Singh defined [facility] Clavulanate Clavulanate [facility] Immunizations Ordered Filled Immunization Date Status Comments Sour e Immunization Name Name FLUCELVAX QUAD PF 2021-12-[address] [facility] FLUCELVAX QUAD 2021-02-[address] [facility] Hospital FLUCELVAX QUAD 2021-02-[address] 00:[facility]:00 Hospital Pneumococcal 2020-10-03 Completed [facility] o f Polysaccharide, 00:00:00 [facility] PPSV23 (PNEUMOVAX) Branch Pneumococcal 2020-10-03 Completed [facility] o f Polysaccharide, 00:00:00 [place] [facility] [...] Completed Unive rsity of MODERNA VACCINE 00:00:00 [facility] Branch SARS-COV-2 COVID-19 2020-08-08 Completed Unive rsity of MODERNA VACCINE 00:00:00 [facility] Branch SARS-COV-2 COVID-19 2020-08-08 Completed Unive rsity of MODERNA VACCINE 00:00:00 [facility] Branch SARS-COV-2 COVID-19 2020-08-08 Completed Unive rsity of MODERNA VACCINE 00:00:00 [facility] Branch SARS-COV-2 COVID-19 2020-08-08 Completed Unive rsity of MODERNA VACCINE 00:00:00 [facility] Branch SARS-COV-2 COVID-19 2020-08-08 Completed Unive rsity of MODERNA VACCINE 00:00:00 [facility] Branch SARS-COV-2 COVID-19 2020-08-08 Completed Unive rsity of MODERNA VACCINE 00:00:00 [facility] Branch SARS-COV-2 COVID-19 2020-08-08 Completed Unive rsity of MODERNA VACCINE 00:00:00 [facility] SARS-COV-2 COVID-19 2020-08-08 Completed Unive rsity of MODERNA VACCINE 00:00:00 [facility] SARS-COV-2 COVID-19 2020-08-08 Completed Unive rsity of MODERNA VACCINE 00:00:00 [facility] Branch SARS-COV-2 COVID-19 2020-07-11 Completed Unive rsity of MODERNA VACCINE 00:00:00 [facility] Branch SARS-COV-2 COVID-19 2020-07-11 Completed Unive rsity of MODERNA VACCINE 00:00:00 [facility] Branch SARS-COV-2 COVID-19 2020-07-11 Completed Unive rsity of MODERNA VACCINE 00:00:00 [facility] Branch SARS-COV-2 COVID-19 2020-07-11 Completed Unive rsity of MODERNA VACCINE 00:00:00 [facility] Branch SARS-COV-2 COVID-19 2020-07-11 Completed Unive rsity of MODERNA VACCINE 00:00:00 [facility] Branch SARS-COV-2 COVID-19 2020-07-11 Completed Unive rsity of MODERNA VACCINE 00:00:00 [facility] Branch SARS-COV-2 COVID-19 2020-07-11 Completed Unive rsity of MODERNA VACCINE 00:00:00 [facility] Branch SARS-COV-2 COVID-19 2020-07-11 Completed Unive rsity of MODERNA VACCINE 00:00:00 [facility] Branch SARS-COV-2 COVID-19 2020-07-11 Completed Unive rsity of MODERNA VACCINE 00:00:00 [facility] SARS-COV-2 COVID-19 2020-07-11 Completed Unive rsity of MODERNA VACCINE 00:00:00 [facility] Influenza Virus 2019-08-11 Completed Universit y of Vaccine Quad .5 mL 00:00:00 [facility] IM 6+ MO Branch Influenza Virus 2019-08-11 Completed Universit y of Vaccine Quad .5 mL 00:00:00 [facility] 6+ [facility] Influenza Virus 2019-08-11 Completed Universit y of Vaccine Quad .5 mL 00:00:00 [facility] IM 6+ MO Branch Influenza Virus 2019-08-11 [...] y of Vaccine Quad .5 mL 00:00:00 [facility] IM 6+ MO Branch Influenza Virus 2019-08-11 Completed Universit y of Vaccine Quad .5 mL 00:00:00 [facility] IM 6+ MO Branch Influenza Virus 2019-08-11 Completed [facility]it y of Vaccine Quad .5 mL 00:00:00 [facility] 6+ MO Branch Influenza Virus 2019-08-11 Completed Universit y of Vaccine Quad .5 mL 00:00:00 [facility] 6+ MO Branch Vital Signs Vital Name Observation Time Observation Value Comments Source Systolic blood 2021-09-29 03:00:00 126 mm[Hg] Univer sity of pressure [facility] Diastolic blood 2021-09-29 03:00:00 57 mm[Hg] Unive rsity of pressure [facility] Heart rate 2021-09-29 03:00:00 78 /min [facility] Body temperature 2021-09-29 03:00:00 37.28 [facility] Respiratory rate 2021-09-29 03:00:00 16 /min [facility] Body height 2021-09-29 03:00:00 162.6 cm [facility] Body weight 2021-09-29 03:00:00 117.935 kg [facility] BMI 2021-09-29 03:00:00 44.63 kg/m2 [facility] Oxygen saturation in 2021-09-29 03:00:00 97 /min [facility] of Arterial blood by [facility] molly Pulse oximetry Branch Systolic blood 2021-04-02 18:55:00 138 mm[Hg] Univer sity of pressure [facility] Diastolic blood 2021-04-02 18:55:00 104 mm[Hg] Unive rsity of pressure [facility] Heart rate 2021-04-02 18:55:00 74 /min [facility] Body temperature 2021-04-02 18:55:00 36.78 [facility] [facility] Respiratory rate 2021-04-02 18:55:00 18 /min [facility] Body weight 2021-04-02 18:55:00 122.471 kg [facility] BMI 2021-04-02 18:55:00 46.35 kg/m2 [facility] Oxygen saturation in 2021-04-02 18:55:00 97 /min [facility] Arterial blood by [facility] Pulse oximetry Branch Systolic blood 2020-10-03 17:23:00 132 mm[Hg] Univer sity of pressure [facility] Diastolic blood 2020-10-03 17:23:00 56 mm[Hg] Unive rsity of pressure [facility] Heart rate 2020-10-03 17:23:00 88 /min [facility] Body temperature 2020-10-03 17:23:00 36.94 [place] [facility] Respiratory rate 2020-10-03 17:23:00 18 /min [facility] Oxygen saturation in 2020-10-03 17:23:00 94 /min [facility] Arterial blood by [facility] Pulse oximetry Branch Body weight 2020-09-30 08:11:00 121.473 kg [facility] BMI 2020-09-30 08:11:00 47.44 kg/m2 [facility] Body height 2020-09-29 03:33:00 160 cm [facility] Diastolic blood 2019-08-11 20:04:00 44 mm[Hg] Unive rsity of pressure [facility] Heart rate 2019-08-11 20:04:00 70 /min [facility] Body temperature 2019-08-11 20:04:00 36.61 [place]ee Univ ersity of [facility] Respiratory rate 2019-08-11 20:04:00 18 /min Univ ersity of [facility] Branch Oxygen saturation in 2019-08-11 20:04:00 91 /min [facility] Arterial blood by [facility] Pulse oximetry Branch Systolic blood 2019-08-11 20:04:00 107 mm[Hg] Univer sity of [facility] Body height 2019-08-10 08:01:00 162.6 cm [facility] [place] Body weight 2019-08-10 08:01:00 119.296 kg Universi ty of [facility] BMI 2019-08-10 08:01:00 45.14 kg/m2 Universi ty of [facility] Diastolic blood 2019-08-11 20:04:00 44 mm[Hg] [facility] Heart rate 2019-08-11 20:04:00 70 /min Universi ty of [facility] Body temperature 2019-08-11 20:04:00 36.61 [place]ee Univ ersity of [facility] Respiratory rate 2019-08-11 20:04:00 18 /min Univ ersity [facility] Oxygen saturation in 2019-08-11 20:04:00 91 /min [facility] Arterial blood by [facility] Pulse oximetry Branch Systolic blood 2019-08-11 20:04:00 107 mm[Hg] Univer sity of [facility] Body height 2019-08-10 08:01:00 162.6 cm [facility] [place] Body weight 2019-08-10 08:01:00 119.296 kg [facility] [place] BMI 2019-08-10 08:01:00 45.14 kg/m2 Universi ty [facility] Branch Systolic blood 2021-12-18 20:25:00 122 mm[Hg] [facility] Diastolic blood 2021-12-18 20:25:00 57 mm[Hg] Metho dist [facility] pressure Heart rate 2021-12-18 20:25:00 71 /min Methodis t [facility] Body temperature 2021-12-18 20:25:00 36.94 [facility] [facility] 2021-12-18 20:25:00 19 /min [facility] Oxygen saturation in 2021-12-18 20:25:00 94 /min [facility] Arterial blood by Pulse oximetry Body weight 2021-12-18 10:58:00 112.1 kg [facility] BMI 2021-12-18 10:58:00 42.42 kg/m2 [facility] Systolic blood 2021-12-03 12:21:16 129 mm[Hg] [facility] pressure Diastolic blood 2021-12-03 12:21:16 58 mm[Hg] [facility] pressure Heart rate 2021-12-03 12:21:16 68 /min [facility] Body temperature 2021-12-03 12:21:16 36.11 [place] [facility] Respiratory rate 2021-12-03 12:21:16 20 /min [facility] Oxygen saturation in 2021-12-03 12:21:16 95 /min [facility] Arterial blood by Pulse oximetry Body weight 2021-12-03 11:09:00 112.6 kg [facility] BMI 2021-12-03 11:09:00 42.61 kg/m2 [facility] Body height 2021-10-21 16:02:36 162.6 cm [facility] Procedures Procedure Date / Time Performing Source Performed Clinician HC COMPLETE BLD COUNT W/AUTO DIFF 2021-12-18 Jose Sandoval 10:19:00 [facility] PROTHROMBIN TIME WITH INR 2021-12-18 Jeremy Sandovalt 10:19:00 [facility] BASIC METABOLIC PANEL 2021-12-18 Jeremy Sandoval 10:19:00 [facility] HEPATIC FUNCTION PANEL 2021-12-18 Jeremy Sandoval 10:19:00 [facility] PHOSPHORUS LEVEL 2021-12-18 Jeremy Sandoval 10:19:00 [facility] MAGNESIUM LEVEL 2021-12-18 Jeremy Sandoval 10:19:00 [facility] ESTIMATED GFR 2021-12-18 Jeremy Sandoval 10:19:00 [facility] SMEAR REVIEW 2021-12-18 Jeremy Sandoval 10:19:00 [facility] HC COMPLETE BLD COUNT W/AUTO DIFF 2021-12-17 Jose Sandoval 11:45:00 [facility] PROTHROMBIN TIME WITH INR 2021-12-17 Jeremy Sandoval Method ist 11:45:00 [facility] BASIC METABOLIC PANEL 2021-12-17 Jeremy Sandoval 11:45:00 [facility] HEPATIC FUNCTION PANEL 2021-12-17 DinarJeremy 11:45:00 [facility] PHOSPHORUS LEVEL 2021-12-17 Jeremy Sandoval 11:45:00 [facility] MAGNESIUM LEVEL 2021-12-17 Jeremy Sandoval [facility] 11:45:00 [facility] ESTIMATED GFR 2021-12-17 Jeremy Sandoval 11:45:00 [facility] SMEAR REVIEW 2021-12-17 Jeremy Sandoval 11:45:00 [facility] NM GI BLEEDING STUDY 2021-12-16 Elias Guzman 20:06:11 [facility] MRI CHOLANGIOGRAM WO CONTRAST 2021-12-16 Elias Guzman thodist 13:57:00 Hospital MRI ABDOMEN W WO CONTRAST 2021-12-16 Elias Guzman ist 13:56:00 Hospital HC COMPLETE BLD COUNT W/AUTO DIFF 2021-12-16 Jose Sandoval 11:26:00 [facility] PROTHROMBIN TIME WITH INR 2021-12-16 Jeremy Sandoval Method ist 11:26:00 [facility] BASIC METABOLIC PANEL 2021-12-16 Jeremy Sandoval 11:26:00 [facility] HEPATIC FUNCTION PANEL 2021-12-16 Jeremy Sandoval 11:26:00 [facility] PHOSPHORUS LEVEL 2021-12-16 Jeremy Sandoval [facility] 11:26:00 [facility] MAGNESIUM LEVEL 2021-12-16 Jeremy Sandoval 11:26:00 [facility] ESTIMATED GFR 2021-12-16 Jeremy Sandoval 11:26:00 [facility] SMEAR REVIEW 2021-12-16 Jeremy Sandoval 11:26:00 [facility] BASIC METABOLIC PANEL 2021-12-15 Bebeto Ward 12:30:00 Hospital ESTIMATED GFR 2021-12-15 Ward, Bebeto [facility] 12:30:00 Hospital HEPATIC FUNCTION PANEL 2021-12-15 Bebeto Ward Methodis t 12:30:00 Hospital MAGNESIUM LEVEL 2021-12-15 Bebeto Ward [facility] 12:30:00 Hospital PHOSPHORUS LEVEL 2021-12-15 Bebeto Ward [facility] 12:30:00 Hospital CBC HEMOGRAM 2021-12-15 Bebeto Ward [facility] 12:30:00 Hospital PROTHROMBIN TIME WITH INR 2021-12-15 Bebeto Ward Metho dist 12:30:00 Hospital C-REACTIVE PROTEIN 2021-12-15 WardBebeto graves [facility] 12:30:00 Hospital SMEAR REVIEW 2021-12-15 Bebeto Ward [facility] 12:30:00 Hospital CBC WITH PLATELET AND DIFFERENTIAL 2021-12-15 Leah Sandoval [facility] 11:14:00 [facility] PROTHROMBIN TIME WITH INR 2021-12-15 Jeremy Sandoval Method ist 11:14:00 [facility] BASIC METABOLIC PANEL 2021-12-15 Jeremy Sandoval [facility] 11:14:00 [facility] HEPATIC FUNCTION PANEL 2021-12-15 Jeremy Sandoval [facility] 11:14:00 [facility] PHOSPHORUS LEVEL 2021-12-15 Jeremy Sandoval [facility] 11:14:00 [facility] MAGNESIUM LEVEL 2021-12-15 Jeremy Sandoval [facility] 11:14:00 [facility] C-REACTIVE PROTEIN 2021-12-[address] [facility] 11:14:00 Hospital ESTIMATED GFR 2021-12-15 Jeremy Sandoval [facility] 11:14:00 [facility] HC COMPLETE BLD COUNT W/AUTO DIFF 2021-12-14 Jose Sandoval [facility] 10:39:00 [facility] PROTHROMBIN TIME WITH INR 2021-12-14 Jeremy Sandoval Method ist 10:39:00 [facility] BASIC METABOLIC PANEL 2021-12-14 DinarJeremy [facility] 10:39:00 [facility] HEPATIC FUNCTION PANEL 2021-12-14 DinarJeremy [facility] 10:39:00 [facility] PHOSPHORUS LEVEL 2021-12-14 DinhomarJeremy [facility] 10:39:00 [facility] MAGNESIUM LEVEL 2021-12-14 Jeremy Sandovalist 10:39:00 [facility] C-REACTIVE PROTEIN 2021-12-14 Bebeto Ward 10:39:00 Hospital FERRITIN LEVEL 2021-12-14 Bebeto Ward [facility] 10:39:00 Hospital FOLATE LEVEL 2021-12-14 Bebeto Ward [facility] 10:39:00 Hospital HAPTOGLOBIN 2021-12-14 Bebeto Ward [facility] 10:39:00 Hospital VITAMIN B12 LEVEL 2021-12-14 Bebeto Ward [facility] 10:39:00 Hospital TOTAL IRON BINDING CAPACITY 2021-12-14 Bebeto Ward hodnohelia 10:39:00 Hospital RETICULOCYTE COUNT 2021-12-14 Bebeto Ward [facility] 10:39:00 Hospital LDH 2021-12-14 Bebeto [address] [facility] 10:39:00 Hospital ESTIMATED GFR 2021-12-14 Jeremy Sandoval 10:39:00 [facility] VENIPUNC NEED PHYS SKILL,DX OR RX 2021-12-13 [place], Blesi lda [facility] 21:45:17 Hospital HC COMPLETE BLD COUNT W/AUTO DIFF 2021-12-13 Jose Sandoval 07:40:00 [facility] PROTHROMBIN TIME WITH INR 2021-12-13 Jeremy Sandoval ist 07:40:00 [facility] BASIC METABOLIC PANEL 2021-12-13 Jeremy Sandoval 07:40:00 [facility] HEPATIC FUNCTION PANEL 2021-12-13 Jeremy Sandoval 07:40:00 [facility] PHOSPHORUS LEVEL 2021-12-13 Jeremy Sandoval [facility] 07:40:00 [facility] MAGNESIUM LEVEL 2021-12-13 Jeremy Sandoval 07:40:00 [facility] HEMOGLOBIN A1C 2021-12-13 Jeremy Sandoval 07:40:00 [facility] C-REACTIVE PROTEIN 2021-12-13 [address] [facility] 07:40:00 Hospital SEDIMENTATION RATE 2021-12-13 Bebeto [address] [facility] 07:40:00 Hospital LDH 2021-12-13 Bebeto Ward 07:40:00 Hospital LIPASE LEVEL 2021-12-13 Bebeto Ward 07:40:00 Hospital GGT 2021-12-13 Bebeto Ward 07:40:00 Hospital ESTIMATED GFR 2021-12-13 Jeremy Sandoval 07:40:00 [facility] SMEAR REVIEW 2021-12-13 Jeremy Sandoval 07:40:00 [facility] BLOOD CULTURE, AEROBIC & ANAEROBIC 2021-12-12 Leah Sandoval 12:00:00 [facility] BLOOD CULTURE, AEROBIC & ANAEROBIC 2021-12-12 Leah Sandoval 11:42:00 [facility] COVID-19 ANTI-SPIKE IGG ANTIBODY 2021-12-12 Jeremy Sandoval TITER 11:40:00 [facility] TROPONIN T 2021-12-12 RehStevo underwood 11:40:00 [facility] HC COMPLETE BLD COUNT W/AUTO DIFF 2021-12-12 Jose Sandoval 11:40:00 [facility] COVID-19 SEROLOGY PATIENT 2021-12-12 Jeremy Sandoval ist SURVEILLANCE 11:40:00 [facility] SMEAR REVIEW 2021-12-12 Jeremy Sandoval 11:40:00 [facility] TROPONIN T 2021-12-12 Stevo Hoskins 09:10:00 [facility] LACTIC ACID LEVEL, SEPSIS - NOW 2021-12-12 Stevo Hoskins AND REPEAT 2X EVERY 3 HOURS 09:10:00 [facility] ital CT ABDOMEN PELVIS W CONTRAST 2021-12-12 Stevo Hoskinsist 06:58:00 [facility] ECG ED PRELIMINARY INTERPRETATION 2021-12-12 Stevo Hoskins 05:33:45 [facility] URINE CULTURE 2021-12-12 Stevo Hoskins 04:28:00 [facility] URINALYSIS SCREEN AND MICROSCOPY, 2021-12-12 Stevo Hoskins WITH REFLEX TO CULTURE 03:45:00 [facility] COVID-19 QUALITATIVE RT-PCR 2021-12-12 Jasmine Hoskinsh Meth odist 03:30:00 [facility] PROTHROMBIN TIME WITH INR 2021-12-12 Rehrer, Stevo Method ist 03:30:00 [facility] PARTIAL THROMBOPLASTIN TIME (PTT) 2021-12-12 Rehrer, Stevo [facility] 03:30:00 [facility] LIPASE LEVEL 2021-12-12 Rehrer, Stevo [facility] 03:30:00 [facility] TROPONIN T 2021-12-12 Rehrer, Stevo [facility] 03:30:00 [facility] B NATRIURETIC PEPTIDE 2021-12-12 Rehrer, Stevo [facility] 03:30:00 [facility] TYPE AND SCREEN 2021-12-12 Rehrer, Stevo [facility] 03:30:00 [facility] LACTIC ACID LEVEL, SEPSIS - NOW 2021-12-12 Tamie Silveira AND REPEAT 2X EVERY 3 HOURS 03:30:00 Hosp ital ECG 12-LEAD 2021-12-12 Rehrer, Stevo Rileyist 03:08:12 [facility] HC COMPLETE BLD COUNT W/AUTO DIFF 2021-12-11 Tamie Silveira 22:48:00 Hospital COMPREHENSIVE METABOLIC PANEL 2021-12-11 Tamie Silveira thodist 22:48:00 Hospital LIPASE LEVEL 2021-12-11 Tamie Silveira 22:48:00 Hospital LACTIC ACID LEVEL, SEPSIS - NOW 2021-12-11 Tamie Silveira AND REPEAT 2X EVERY 3 HOURS 22:48:00 Hosp ital ESTIMATED GFR 2021-12-11 Tamie Silveira 22:48:00 Hospital SMEAR REVIEW 2021-12-11 Tamie Silveira 22:48:00 Hospital HC COMPLETE BLD COUNT W/AUTO DIFF 2021-12-03 Jose Sandoval 11:14:00 [facility] PROTHROMBIN TIME WITH INR 2021-12-03 Jeremy Sandoval ist 11:14:00 [facility] BASIC METABOLIC PANEL 2021-12-03 Jeremy Sandoval 11:14:00 [facility] HEPATIC FUNCTION PANEL 2021-12-03 Jeremy Sandoval 11:14:00 [facility] PHOSPHORUS LEVEL 2021-12-03 Dinakar, Jeremy [facility] 11:14:00 [facility] MAGNESIUM LEVEL 2021-12-03 Dinakar, Jeremy [facility] 11:14:00 [facility] ESTIMATED GFR 2021-12-03 Dinakar, Jeremy [facility] 11:14:00 [facility] SMEAR REVIEW 2021-12-03 Dinakar, Jeremy [facility] 11:14:00 [facility] US DUPLEX VENOUS UPPER EXTREMITY 2021-12-02 Nakia Cruz [facility] LEFT 18:10:00 Hospital HC COMPLETE BLD COUNT W/AUTO DIFF 2021-12-02 Dinakar, Satis h [facility] 09:59:00 [facility] PROTHROMBIN TIME WITH INR 2021-12-02 Dinakar, Jeremy Method ist 09:59:00 [facility] BASIC METABOLIC PANEL 2021-12-02 Dinakar, Jeremy [facility] 09:59:00 [facility] HEPATIC FUNCTION PANEL 2021-12-02 Dinakar, Jeremy [facility] 09:59:00 [facility] PHOSPHORUS LEVEL 2021-12-02 Dinakar, Jeremy [facility] 09:59:00 [facility] MAGNESIUM LEVEL 2021-12-02 Dinakar, Jeremy [facility] 09:59:00 [facility] ESTIMATED GFR 2021-12-02 Dinakar, Jeremy [facility] 09:59:00 [facility] HC COMPLETE BLD COUNT W/AUTO DIFF 2021-12-01 Dinakar, Satis h [facility] 10:22:00 [facility] PROTHROMBIN TIME WITH INR 2021-12-01 Dinakar, Jeremy Method ist 10:22:00 [facility] BASIC METABOLIC PANEL 2021-12-01 Dinakar, Jeremy [facility] 10:22:00 [facility] HEPATIC FUNCTION PANEL 2021-12-01 Dinakar, Jeremy [facility] 10:22:00 [facility] PHOSPHORUS LEVEL 2021-12-01 Dinakar, Jeremy [facility] 10:22:00 [facility] MAGNESIUM LEVEL 2021-12-01 Dinakar, Jeremy [facility] 10:22:00 [facility] ESTIMATED GFR 2021-12-01 Dinakar, Jeremy [facility] 10:22:00 [facility] SMEAR REVIEW 2021-12-01 Dinakar, Jeremy [facility] 10:22:00 [facility] ESOPHAGOGASTRODUODENOSCOPY (EGD) 2021-11-30 Elias Guzman [facility] 19:49:00 Hospital HC COMPLETE BLD COUNT W/AUTO DIFF 2021-11-30 Dinakar, Satis h [facility] 10:53:00 [facility] PROTHROMBIN TIME WITH INR 2021-11-30 Dinakar, Jeremy Method ist 10:53:00 [facility] BASIC METABOLIC PANEL 2021-11-30 Dinakar, Jereym [facility] 10:53:00 [facility] HEPATIC FUNCTION PANEL 2021-11-30 Dinakar, Jreemy [facility] 10:53:00 [facility] PHOSPHORUS LEVEL 2021-11-30 Dinakar, Jeremy [facility] 10:53:00 [facility] MAGNESIUM LEVEL 2021-11-30 Dinakar, Jeremy [facility] 10:53:00 [facility] ESTIMATED GFR 2021-11-30 Dinakar, Jeremy [facility] 10:53:00 [facility] SMEAR REVIEW 2021-11-30 Dinakar, Jeremy [facility] 10:53:00 [facility] HC COMPLETE BLD COUNT W/AUTO DIFF 2021-11-29 Dinakar, Satis h [facility] 10:50:00 [facility] PROTHROMBIN TIME WITH INR 2021-11-29 Dinakar, Jeremy Method ist 10:50:00 [facility] BASIC METABOLIC PANEL 2021-11-29 Dinakar, Jeremy [facility] 10:50:00 [facility] HEPATIC FUNCTION PANEL 2021-11-29 Dinakar, Jeremy [facility] 10:50:00 [facility] PHOSPHORUS LEVEL 2021-11-29 Dinakar, Jeremy [facility] 10:50:00 [facility] MAGNESIUM LEVEL 2021-11-29 Dinakar, Jeremy [facility] 10:50:00 [facility] ESTIMATED GFR 2021-11-29 Dinakar, Jeremy [facility] 10:50:00 [facility] SMEAR REVIEW 2021-11-29 Dinakar, Jeremy [facility] 10:50:00 [facility] CBC WITH PLATELET AND DIFFERENTIAL 2021-11-28 Dinakar, Sati sh [facility] 09:28:00 [facility] PROTHROMBIN TIME WITH INR 2021-11-28 Dinakar, Jeremy Method ist 09:28:00 [facility] BASIC METABOLIC PANEL 2021-11-28 Jeremy Sandoval [facility] 09:28:00 [facility] HEPATIC FUNCTION PANEL 2021-11-28 DinarJeremy [facility] 09:28:00 [facility] PHOSPHORUS LEVEL 2021-11-28 DinarJeremy [facility] 09:28:00 [facility] MAGNESIUM LEVEL 2021-11-28 DinhomarJeremy [facility] 09:28:00 [facility] ESTIMATED GFR 2021-11-28 Ara, Jeremy [facility] 09:28:00 [facility] OCCULT BLOOD, STOOL 2021-11-27 Jefferson Skelton 23:26:00 Hospital XR ABDOMEN 1 VW PORTABLE 2021-11-[address] 20:25:00 [facility] HC COMPLETE BLD COUNT W/AUTO DIFF 2021-11-27 Jose Sandoval 09:07:00 [facility] PROTHROMBIN TIME WITH INR 2021-11-27 Jeremy Sandoval 09:07:00 [facility] BASIC METABOLIC PANEL 2021-11-27 Jeremy Sandoval 09:07:00 [facility] HEPATIC FUNCTION PANEL 2021-11-27 Jeremy Sandoval 09:07:00 [facility] PHOSPHORUS LEVEL 2021-11-27 Jeremy Sandoval 09:07:00 [facility] MAGNESIUM LEVEL 2021-11-27 Jeremy Sandoval 09:07:00 [facility] HEMOGLOBIN A1C 2021-11-27 Jeremy Sandoval 09:07:00 [facility] ESTIMATED GFR 2021-11-27 Jeremy Sandoval 09:07:00 [facility] SMEAR REVIEW 2021-11-27 Jeremy Sandoval 09:07:00 [facility] BLOOD CULTURE, AEROBIC & ANAEROBIC 2021-11-27 Leah Sandoval 04:03:00 [facility] COVID-19 ANTI-SPIKE IGG ANTIBODY 2021-11-27 Jeremy Sandoval TITER 04:03:00 [facility] COVID-19 SEROLOGY PATIENT 2021-11-27 Jeremy Sandoval ist SURVEILLANCE 04:03:00 [facility] CTA ABD/PEL FOR BLEEDING 2021-11-27 [facility] 01:38:34 Hospital HEMOGLOBIN & HEMATOCRIT 2021-11-27 [facility] 01:34:00 Hospital SMEAR REVIEW 2021-11-27 [facility] 01:34:00 Hospital RESPIRATORY PATHOGEN PANEL WITH 2021-11-27 [facility] COVID-19 RT-PCR 00:58:00 Hospital TYPE AND SCREEN 2021-11-27 [facility] 00:30:00 Hospital PROTHROMBIN TIME WITH INR 2021-11-27 [facility] 00:30:00 Hospital AMMONIA LEVEL 2021-11-27 [facility] 00:30:00 Hospital ECG 12-LEAD 2021-11-27 [facility] 00:29:32 Hospital ECG ED PRELIMINARY INTERPRETATION 2021-11-27 [facility] 00:04:12 Hospital HC COMPLETE BLD COUNT W/AUTO DIFF 2021-11-26 [facility] 21:32:00 Hospital COMPREHENSIVE METABOLIC PANEL 2021-11-26 [facility] 21:32:00 Hospital LIPASE LEVEL 2021-11-26 [facility] 21:32:00 Hospital HCG QUALITATIVE, SERUM SCREEN 2021-11-26 [facility] 21:32:00 Hospital ESTIMATED GFR 2021-11-26 Pasquale Cabrales [facility] 21:32:00 [facility] SMEAR REVIEW 2021-11-26 Pasquale Cabrales [facility] 21:32:00 [facility] HC COMPLETE BLD COUNT W/AUTO DIFF 2021-10-26 Nakia Cruz [facility] 11:26:00 Hospital PROTHROMBIN TIME WITH INR 2021-10-26 Nakia Cruz Method ist 11:26:00 Hospital BASIC METABOLIC PANEL 2021-10-26 Rafael Arora [facility] 11:26:00 [facility] ESTIMATED GFR 2021-10-26 Rafael Arora [facility] 11:26:00 [facility] SMEAR REVIEW 2021-10-26 Nakia Cruz [facility] 11:26:00 Hospital HC COMPLETE BLD COUNT W/AUTO DIFF 2021-10-25 Nakia Cruz [facility] 09:30:00 Hospital PROTHROMBIN TIME WITH INR 2021-10-25 Nakia Cruz Method ist 09:30:00 Hospital COMPREHENSIVE METABOLIC PANEL 2021-10-25 Nakia Cruz thodist 09:30:00 Hospital ESTIMATED GFR 2021-10-25 Nakia Cruz [facility] 09:30:00 Hospital MAGNESIUM LEVEL 2021-10-25 Nakia Cruz [facility] 09:30:00 Hospital PHOSPHORUS LEVEL 2021-10-25 Nakia Cruz [facility] 09:30:00 Hospital BILIRUBIN DIRECT 2021-10-25 Nakia Cruz [facility] 09:30:00 Hospital SMEAR REVIEW 2021-10-25 Nakia Cruzist 09:30:00 Hospital HC COMPLETE BLD COUNT W/AUTO DIFF 2021-10-24 Nakia Cruz [facility] 09:17:00 Hospital PROTHROMBIN TIME WITH INR 2021-10-24 Nakia Cruz ist 09:17:00 Hospital COMPREHENSIVE METABOLIC PANEL 2021-10-24 Nakia Cruz thodist 09:17:00 Hospital PHOSPHORUS LEVEL 2021-10-24 Nakia Cruz [facility] 09:17:00 Hospital MAGNESIUM LEVEL 2021-10-24 Nakia Cruzist 09:17:00 Hospital ESTIMATED GFR 2021-10-24 Nakia Cruzist 09:17:00 Hospital SMEAR REVIEW 2021-10-24 Nakia Cruz [facility] 09:17:00 Hospital ESOPHAGOGASTRODUODENOSCOPY (EGD) 2021-10-23 Elias Guzman [facility] 17:25:00 Hospital HC COMPLETE BLD COUNT W/AUTO DIFF 2021-10-23 Nakia Cruz [facility] 11:38:00 Hospital PROTHROMBIN TIME WITH INR 2021-10-23 Nakia Cruz Method ist 11:38:00 Hospital COMPREHENSIVE METABOLIC PANEL 2021-10-23 Nakia Cruz thodist 11:38:00 Hospital PHOSPHORUS LEVEL 2021-10-23 Nakia Cruz [facility] 11:38:00 Hospital MAGNESIUM LEVEL 2021-10-23 Nakia Cruz [facility] 11:38:00 Hospital ESTIMATED GFR 2021-10-23 Nakia Cruz 11:38:00 Hospital SMEAR REVIEW 2021-10-23 Nakia Cruz 11:38:00 Hospital TTE COMPLETE, W CONTRAST, W 2021-10-22 Flores Garcia DOPPLER ([id number]) 14:21:00 [facility] HC COMPLETE BLD COUNT W/AUTO DIFF 2021-10-22 Nakia Cruz 10:31:00 Hospital PROTHROMBIN TIME WITH INR 2021-10-22 Nakia Cruz ist 10:31:00 Hospital COMPREHENSIVE METABOLIC PANEL 2021-10-22 Nakia Cruz thodist 10:31:00 Hospital PHOSPHORUS LEVEL 2021-10-22 Nakia Cruz 10:31:00 Hospital MAGNESIUM LEVEL 2021-10-22 Nakia Cruz 10:31:00 [facility] THYROID STIMULATING HORMONE 2021-10-22 Nakia Cruz odist 10:31:00 Hospital T4 2021-10-22 Nakia Cruz 10:31:00 Hospital VITAMIN D 25 HYDROXY LEVEL 2021-10-22 Nakia Cruzo dist 10:31:00 Hospital ALPHA FETOPROTEIN 2021-10-22 Kaylynn Garcia 10:31:00 [facility] ESTIMATED GFR 2021-10-22 Nakia Cruz 10:31:00 Hospital SMEAR REVIEW 2021-10-22 Nakia Cruz 10:31:00 [facility] COVID-19 QUALITATIVE RT-PCR 2021-10-22 Nakia Cruz odist 00:29:00 Hospital URINE CULTURE 2021-10-21 Nakia Cruz 22:46:00 [facility] URINALYSIS SCREEN AND MICROSCOPY, 2021-10-21 Nakia Cruz WITH REFLEX TO CULTURE 22:46:00 Hospital XR ABDOMEN 1 VW PORTABLE 2021-10-[address] 22:35:[address] [facility] [address] ABDOMEN PELVIS WO CONTRAST 2021-10-21 Nakia Cruz Me thodist 20:20:30 [facility] COVID-19 ANTI-SPIKE IGG ANTIBODY 2021-10-21 Nakia Cruz TITER 16:31:00 Hospital HC COMPLETE BLD COUNT W/AUTO DIFF 2021-10-21 Nakia Cruz 16:31:00 Hospital COMPREHENSIVE METABOLIC PANEL 2021-10-21 Nakia Cruz thodist 16:31:00 Hospital PROTHROMBIN TIME WITH INR 2021-10-21 Nakia Cruz ist 16:31:00 Hospital MAGNESIUM LEVEL 2021-10-21 Nakia Cruz 16:31:00 Hospital PHOSPHORUS LEVEL 2021-10-21 Nakia Cruz 16:31:00 Hospital LIPASE LEVEL 2021-10-21 Nakia Cruz 16:31:00 Hospital COVID-19 SEROLOGY PATIENT 2021-10-21 Nakia Cruz ist SURVEILLANCE 16:31:00 Hospital ESTIMATED GFR 2021-10-21 Nakia Cruz 16:31:00 Hospital XR KNEE 3 VW RIGHT 2021-09-29 Sukhdev Soto Mcnary of 04:06:00 [facility] NOTICE OF PRIVACY PRACTICES 2021-09-29 [facility] of 02:46:43 Unassigned, No [facility] CONSENT/REFUSAL FOR DIAGNOSIS AND 2021-09-29 Doctor Mcnary of TREATMENT 02:46:16 Unassigned, No [facility] XR KNEE 3 VW LEFT 2021-04-02 [facility] o f 20:10:39 F [facility] CONSENT/REFUSAL FOR DIAGNOSIS AND 2021-04-02 Doctor Mcnary of TREATMENT 17:59:31 Unassigned, No [facility] ASSIGNMENT OF BENEFITS 2021-03-10 Doctor [facility] 20:29:46 Unassigned, No [facility] HC COMPLETE BLD COUNT W/AUTO DIFF 2021-02-20 Kaylynn Suresh 10:53:00 [facility] BASIC METABOLIC PANEL 2021-02-20 Kaylynn Suresh 10:53:00 [facility] HEPATIC FUNCTION PANEL 2021-02-20 Kaylynn Suresh 10:53:00 [facility] MAGNESIUM LEVEL 2021-02-20 Kaylynn Suresh 10:53:00 [facility] PHOSPHORUS LEVEL 2021-02-20 Kaylynn Suresh 10:53:00 [facility] PROTHROMBIN TIME WITH INR 2021-02-20 Rosemary Suresht 10:53:00 [facility] ESTIMATED GFR 2021-02-20 Kaylynn Suresh 10:53:00 [facility] SMEAR REVIEW 2021-02-20 Kaylynn Suresh 10:53:00 [facility] MRI CHOLANGIOGRAM WO CONTRAST 2021-02-20 Ara Jeremy La thodist 00:15:00 [facility] VENIPUNC NEED PHYS SKILL,DX OR RX 2021-02-19 Latanya Ring lda [facility] 16:10:21 Hospital HC COMPLETE BLD COUNT W/AUTO DIFF 2021-02-19 Kaylynn Suresh 11:00:00 [facility] BASIC METABOLIC PANEL 2021-02-19 Kaylynn Suresh 11:00:00 [facility] HEPATIC FUNCTION PANEL 2021-02-19 Kaylynn Suresh 11:00:00 [facility] MAGNESIUM LEVEL 2021-02-19 Kaylynn Suresh 11:00:00 [facility] PHOSPHORUS LEVEL 2021-02-19 Kaylynn Suresh 11:00:00 [facility] PROTHROMBIN TIME WITH INR 2021-02-19 Rosemary Suresht 11:00:00 [facility] ESTIMATED GFR 2021-02-19 Kaylynn Suresh 11:00:00 [facility] SMEAR REVIEW 2021-02-19 Kaylynn Suresh 11:00:[address] [facility] [address] ABDOMEN PELVIS WO CONTRAST 2021-02-19 Me Dmeetrice thodist 03:25:00 [facility] URINE CULTURE 2021-02-19 Kaylynn Suresh 02:27:00 [facility] URINALYSIS SCREEN AND MICROSCOPY, 2021-02-19 Kaylynn Suresh WITH REFLEX TO CULTURE 02:27:00 [facility] BLOOD CULTURE, AEROBIC & ANAEROBIC 2021-02-18 Kaylynn Suresh 23:25:00 [facility] TYPE AND SCREEN 2021-02-18 Dre Mayerist 23:25:00 [facility] COVID-19 ANTI-SPIKE IGG ANTIBODY 2021-02-18 Kaylynn Suresh TITER 22:57:00 [facility] COVID-19 SEROLOGY PATIENT 2021-02-18 Rosemary Suresh ist SURVEILLANCE 22:57:00 [facility] HC COMPLETE BLD COUNT W/AUTO DIFF 2021-02-18 Kayylnn Suresh 22:57:00 [facility] PROTHROMBIN TIME WITH INR 2021-02-18 Rosemary Suresh ist 22:57:00 [facility] COMPREHENSIVE METABOLIC PANEL 2021-02-18 Me Demetrice thodist 22:57:00 [facility] LACTIC ACID LEVEL 2021-02-18 Kaylynn Suresh 22:57:00 [facility] MAGNESIUM LEVEL 2021-02-18 Kaylynn Suresh 22:57:00 [facility] PHOSPHORUS LEVEL 2021-02-18 Kaylynn Suresh 22:57:00 [facility] LIPASE LEVEL 2021-02-18 Kaylynn Suresh 22:57:00 [facility] ESTIMATED GFR 2021-02-18 Kaylynn Suresh 22:57:00 [facility] SMEAR REVIEW 2021-02-18 Kaylynn Suresh 22:57:00 [facility] PHOSPHORUS 2020-10-03 Brenda Teixeira of 08:52:00 [facility] MAGNESIUM 2020-10-03 Brenda Teixeira Mcnary of 08:52:00 [facility] COMP. METABOLIC PANEL ([id number]) 2020-10-03 Brenda Teixeira Un iversity of 08:52:00 [facility] CBC WITH DIFF 2020-10-03 Brenda Teixeira of 08:52:00 [facility] COMP. METABOLIC PANEL (41654) 2020-10-02 Brenda Teixeira Un iversity of 08:39:00 [facility] CBC WITH DIFF 2020-10-02 Brenda Teixeira Mcnary of 08:39:00 [facility] US DUPLEX VENOUS ARM LEFT - BY 2020-10-01 Brenda Teixeira U niversity of VASCULAR LAB 16:22:58 [facility] COMP. METABOLIC PANEL (60044) 2020-10-01 Tomasa Rucker Un iversity of 07:45:00 [facility] CBC WITH DIFF 2020-10-01 Tomasa Rucker [facility] of 07:45:00 [facility] TROPONIN I 2020-09-30 Cam [facility] of 10:56:00 [facility] COMP. METABOLIC PANEL (30758) 2020-09-30 Shaina Pinto Un iversity of 10:56:00 [facility] CBC WITH DIFF 2020-09-30 Alisha [facility] of 10:56:00 [facility] N-TERMINAL PRO-BNP 2020-09-30 Alisha [facility] of 08:05:00 [facility] OCCULT (GUAIAC) BLOOD 2020-09-30 Alisha, [facility] of 02:10:00 [facility] FECAL LEUKOCYTES 2020-09-30 Alisha, [facility] of 02:10:00 [facility] CLOSTRIDIUM DIFFICILE TOXIN 2020-09-30 Alisha, [facility] ersity of 02:10:00 [facility] FECAL PATHOGENS BY PCR 2020-09-30 Alisha [facility] y of 02:10:00 [facility] POCT GLUCOSE (AUTOMATED) 2020-09-30 Rene Evans [facility] sity of 00:35:00 [facility] BASIC METABOLIC PANEL (NA, K, CL, 2020-09-29 [facility] of CO2, GLUCOSE, BUN, CREATININE, CA) 21:11:00 [facility] HEMOGLOBIN 2020-09-29 Tomasa Rucker Mcnary of 21:11:00 [facility] TRANSTHORACIC ECHO (TTE) COMPLETE 2020-09-29 [facility] of 16:03:00 [facility] HB ECG ROUTINE & RHYTHM STRIP 2020-09-29 Shaina Pinto iversity of 11:18:58 [facility] OSMOLALITY URINE 2020-09-29 Alisha [facility] of 08:56:00 [facility] URINE CULTURE 2020-09-29 Alisha [facility] of 08:56:00 [facility] SODIUM, URINE RANDOM 2020-09-29 Alisha [facility] of 08:56:00 [facility] PROTEIN CREAT RATIO URINE RANDOM 2020-09-29 Alisha [facility] of 08:56:00 [facility] BLOOD CULTURE SCREEN 2020-09-29 Alisha [facility] of 08:32:00 [facility] LACTIC ACID WHOLE BLOOD 2020-09-29 Alisha [facility] of 08:32:00 [facility] VITAMIN B12, LEVEL 2020-09-29 [facility] 08:31:00 [facility] C-REACTIVE PROTEIN 2020-09-29 Alisha [facility] of 08:31:00 [facility] IRON PANEL 2020-09-29 Alisha [facility] of 08:31:00 [facility] SEDIMENTATION RATE 2020-09-29 Alisha [facility] of 08:31:00 [facility] DIFF CONSULT INTERPRETATION 2020-09-29 Alisha [facility] ersity of 08:31:00 [facility] CBC WITH DIFF 2020-09-29 [facility] of 08:31:00 [facility] PROTHROMBIN TIME / INR 2020-09-29 [facility] 08:31:00 [facility] N-TERMINAL PRO-BNP 2020-09-29 Shaina Pinto Mcnary of 08:31:00 [facility] VITAMIN D, 25-OH 2020-09-29 [facility] of 08:31:00 [facility] PROCALCITONIN 2020-09-29 [facility] of 08:31:00 [facility] COVID-19 (ID NOW RAPID TESTING) 2020-09-29 Rene Evans Mcnary of 05:10:00 [facility] LAB ONLY COVID INTERPRETATION 2020-09-29 Rene Evans U niversity of 05:10:[address] [facility] [address] ABDOMEN PELVIS W CONTRAST 2020-09-29 Rene Evans Un iversity of 04:56:31 [facility] URINALYSIS 2020-09-29 Rene Evans of 04:19:00 [facility] PHOSPHORUS 2020-09-29 Shaina Pinto Mcnary of 03:54:00 [facility] CREATINE KINASE 2020-09-29 Shaina Pinto Mcnary of 03:54:00 [facility] URIC ACID 2020-09-29 Shaina Pinto Mcnary of 03:54:00 [facility] LIPASE 2020-09-29 Rene Evans Mcnary of 03:54:00 [facility] MAGNESIUM 2020-09-29 Shaina Pinto Mcnary of 03:54:00 [facility] FERRITIN SERUM 2020-09-29 Shaina Pinto of 03:54:00 [facility] TROPONIN I 2020-09-29 [facility] of 03:54:00 [facility] THYROID STIMULATING HORMONE 2020-09-29 Shaina Pinto [facility] ersity of 03:54:00 [facility] COMP. METABOLIC PANEL (69981) 2020-09-29 Rene Evans niversity of 03:54:00 [facility] LIPID PANEL (28075)(TOTAL 2020-09-29 Shaina Pinto [facility] sity of CHOLESTEROL, TRIGLYCERIDES, HDL) 03:54:00 [facility] CBC WITH DIFF 2020-09-29 Rene Evans Mcnary of 03:54:00 [facility] GLYCOSYLATED HEMOGLOBIN (A1C) 2020-09-29 Shaina Pinto iversity of 03:54:00 [facility] N-TERMINAL PRO-BNP 2020-09-29 Shaina Pinto Mcnary of 03:54:00 [facility] CONSENT/REFUSAL FOR DIAGNOSIS AND 2020-09-29 [facility] of TREATMENT 03:18:51 Unassigned, No [facility] NOTICE OF PRIVACY PRACTICES 2020-09-29 Doctor [facility] ersity of 03:18:30 Unassigned, No [facility] CT ABDOMEN PELVIS W CONTRAST 2019-08-11 Corby Ca Uni versity of 14:50:46 [facility] COMP. METABOLIC PANEL (39863) 2019-08-11 Shaina Pinto Un iversity of 08:00:00 [facility] CBC WITH DIFFERENTIAL 2019-08-11 Shaina Pinto of 08:00:00 [facility] CBC WITH DIFFERENTIAL 2019-08-11 Shaina Pinto of 08:00:00 [facility] XR SMALL BOWEL SERIES 2019-08-10 Valente Piña of 21:18:47 [facility] XR ABDOMEN 1 VW 2019-08-10 Shaina Pinto of 11:52:39 [facility] PHOSPHORUS 2019-08-10 AlishaShaina dalton of 11:11:00 [facility] CREATINE KINASE 2019-08-10 Shaina Pinto Mcnary of 11:11:00 [facility] AMYLASE 2019-08-10 Shaina Pinto Mcnary of 11:11:00 [facility] LIPASE 2019-08-10 Shaina Pinto Mcnary of 11:11:00 [facility] MAGNESIUM 2019-08-10 Shaina Pinto Mcnary of 11:11:00 [facility] TEST, SERUM 2019-08-10 Shaina Pinto Mcnary of 11:11:00 [facility] THYROID STIMULATING HORMONE 2019-08-10 Shaina Pinto Univ ersity of 11:11:00 [facility] COMP. METABOLIC PANEL (48364) 2019-08-10 Shaina Pinto Un iversity of 11:11:00 [facility] LIPID PANEL (30616)(TOTAL 2019-08-10 [facility] CHOLESTEROL, TRIGLYCERIDES, HDL) 11:11:00 [facility] SEDIMENTATION RATE 2019-08-10 Shaina Pinto Mcnary of 11:11:00 [facility] CBC WITH DIFFERENTIAL 2019-08-10 [facility] of 11:11:00 [facility] GLYCOSYLATED HEMOGLOBIN (A1C) 2019-08-10 Shaina Pinto Un iversity of 11:11:00 [facility] PROTHROMBIN TIME / INR 2019-08-10 [facility] 11:11:00 [facility] CORONAVIRUS COVID-19 TESTING 2019-08-10 Shaina Pinto Uni versity of 09:04:00 [facility] Plan of Care Planned Activity Planned Date Details Comments Source Future Scheduled 2021-12-24 SHINGLES VACCINES (1 Met [facility] Test 07:34:42 of 2) [code = SHINGLES VACCINES (1 of 2)] Future Scheduled 2021-12-24 COVID-19 VACCINE (3 - Me [facility] Test 07:34:42 Booster for Moderna series) [code = COVID-19 VACCINE (3 - Booster for Moderna series)] Future Scheduled 2021-12-24 HEPATITIS B VACCINES Met [facility] Test 07:34:42 (1 of 3 - Risk 3-dose series) [code = HEPATITIS B VACCINES (1 of 3 - Risk 3-dose series)] Future Scheduled 2021-12-24 Pneumococcal Vaccine: [facility] Test 07:34:42 Pediatrics (0 to 5 Years) and At-Risk Patients (6 to 64 Years) (1 - PCV) [code = Pneumococcal Vaccine: Pediatrics (0 to 5 Years) and At-Risk Patients (6 to 64 Years) (1 - PCV)] Future Scheduled 2021-12-24 Hepatitis C screening [facility] Test 07:34:42 (procedure) [code = 810169375] Future Scheduled 2021-12-24 Screening for [facility] Test 07:34:42 malignant neoplasm of cervix (procedure) [code = 703551984] Future Scheduled 2021-12-24 BREAST CANCER [facility] Test 07:34:42 SCREENING [code = BREAST CANCER SCREENING] Future Scheduled 2021-12-24 COLONOSCOPY SCREENING [facility] Test 07:34:42 [code = COLONOSCOPY SCREENING] Future Scheduled 2021-12-09 SHINGLES VACCINES (1 Met [facility] Test 13:56:39 of 2) [code = SHINGLES VACCINES (1 of 2)] Future Scheduled 2021-12-09 COVID-19 VACCINE (3 - [facility] Test 13:56:39 Booster for Moderna series) [code = COVID-19 VACCINE (3 - Booster for Moderna series)] Future Scheduled 2021-12-09 HEPATITIS B VACCINES Met [facility] Test 13:56:39 (1 of 3 - Risk 3-dose series) [code = HEPATITIS B VACCINES (1 of 3 - Risk 3-dose series)] Future Scheduled 2021-12-09 INFLUENZA VACCINE Method [facility] Test 13:56:39 [code = INFLUENZA VACCINE] Future Scheduled 2021-12-09 Pneumococcal Vaccine: [facility] Test 13:56:39 Pediatrics (0 to 5 Years) and At-Risk Patients (6 to 64 Years) (1 - PCV) [code = Pneumococcal Vaccine: Pediatrics (0 to 5 Years) and At-Risk Patients (6 to 64 Years) (1 - PCV)] Future Scheduled 2021-12-09 Hepatitis C screening [facility] Test 13:56:39 (procedure) [code = 221245076] Future Scheduled 2021-12-09 Screening for [facility] Test 13:56:39 malignant neoplasm of cervix (procedure) [code = 243464447] Future Scheduled 2021-12-09 BREAST CANCER [facility] Test 13:56:39 SCREENING [code = BREAST CANCER SCREENING] Future Scheduled 2021-12-09 COLONOSCOPY SCREENING [facility] Test 13:56:39 [code = COLONOSCOPY SCREENING] Encounters Start End Encounter Admission Attending Care Care Encounter Source Date/Time Date/Time Type Type Clinicians Facility Department ID 2021-10-13 Outpatient Kattegummul [facility] [id number] Common 14:25:01 a, Madhu [facility] 2021-05-06 Outpatient Kattegummul [facility] [id number] Common 14:30:56 a, Madhu [facility] 2021-05-06 Out[facility]ummul [facility] [id number] Common 14:26:04 a, Madhu [id number] [facility] 2021-05-06 Outpatient Kattegummul [facility] [id number] Common 14:05:28 a, Madhu [id number] [facility] 2021-05-06 Outpatient [facility]ummul [facility] [id number] Common 13:37:29 a, Madhu [id number] [facility] 2021-05-06 Outpatient Preston, [facility] [id number] Common 13:36:02 Annalise 08515 [facility] 2021-05-06 Outpatient Preston, [facility] [id number] Common 11:25:36 Annalise [id number] [facility] 2021-02-09 Emergency [facility] [id number] [facility] 2021-12-11 2021-12-18 Hospital RehrerStevo Zackary 1.2.840.1 [id number] Methodi 16:59:00 17:46:00 Encounter Jeremy Sandoval 39832.1.[address] 3.430.2.7 Hospita .3.469140 l .8 2021-12-11 2021-12-18 Inpatient SYLVIA [facility] [id number] [place] 00:00:00 00:00:00 BE[address] 2021-11-26 2021-12-03 [facility] Skel[facility] 1.2.840.1 [id number] Methodi 16:08:00 14:06:00 Encounter Jeremy Sandoval [id number] Willian Garcia Sp 3.430.2.7 Hospita Nakia Cruz .3.097204 l .8 2021-11-26 2021-12-03 [facility] NAKIA CRUZ [facility] [id number] [place] 00:00:00 00:00:00 Encounter [address] 2021-11-30 2021-11-30 Anesthesia Mahnaz Trujillo 1.2.840.1 1 [id number] Methodi 14:50:00 15:11:00 Event Feng Burgos 61525.1.[address] 3.430.2.7 Hospit a .3.137121 l .8 2021-11-30 2021-11-30 Anesthesia Mahnaz Trujillo 1.2.840.1 1 [id number] Methodi 14:50:00 15:11:00 Event BurgosFeng [address]173.1.[address] 3.430.2.7 Hospit a .3.701183 l .8 2021-11-30 2021-11-30 Surgery Duchini, 1.2.840.1 [id number] Methodi 14:30:00 15:00:[address] 3.430.2.7 Hospit a .3.172469 l .8 2021-11-30 2021-11-30 Surgery Duchini, 1.2.840.1 [id number] Methodi 14:30:00 15:00:[address] 3.430.2.7 Hospit a .3.999666 l .8 2021-10-21 2021-10-26 [facility] Sharita Suresh 1.2.840.1 [id number] Methodi 09:04:00 14:43:00 Encounter Nakia Cruz 94127.1.[address] Rafael Arora 3.430.2.7 Hospita .3.438989 l .8 2021-10-21 2021-10-26 [facility] RAFAEL ARORA 1.2.840.1 [id number] [place] 00:00:00 00:00:00 Encounter 46607.1.[address] .3.410712 .8 2021-10-23 2021-10-23 Surgery Duchini, 1.2.840.1 [id number] Methodi 12:30:00 13:30:[address] 3.430.2.7 Hospit a .3.217906 l .8 2021-10-23 2021-10-23 Surgery Duchini, 1.2.840.1 [id number] Methodi 12:30:00 13:30:[address] 3.430.2.7 Hospit a .3.780151 l .8 2021-10-23 2021-10-23 Anesthesia Consuelo, Oya 1.2.840.1 [id number] Methodi 12:25:00 12:53:[address] 3.430.2.7 Hospit a .3.024054 l .8 2021-10-23 2021-10-23 Anesthesia Consuelo, Oya 1.2.840.1 [id number] Methodi 12:25:00 12:53:[address] 3.430.2.7 Hospit a .3.092222 l .8 2021-10-21 2021-10-21 Travel 1.2.840.1 1.2.370.307 [id number] Methodi 00:00:00 00:00:[address] 3.430.2.7 0.2.7.3.698 Ho spita .3.219731 084.8 l .8 2021-10-21 2021-10-21 Travel 1.2.840.1 1.2.357.291 [id number] Methodi 00:00:00 00:00:[address] 3.430.2.7 0.2.7.3.698 Ho spita .3.758327 084.8 l .8 2021-09-28 2021-09-29 Emergency X Sukhdev [facility] ERT [id number] [employer] 22:03:00 00:15:00 ity of [facility] 2021-09-28 2021-09-29 Emergency Sukhdev [facility] 1.2.840.114 [id number] Univers 22:03:00 00:15:00 Mary WHITT 350.1.13.10 i ty [facility] 4[facility]7.2.686 [id number] [address] 2021-09-28 2021-09-28 Orders Doctor VERONIQUE 1.2.840.114 [id number] Univers 00:00:00 00:00:00 Only Unassigned, GONZALO 350.1.13.10 ity of [place] [facility] 4.2.7.2.[phone] [facility] 009 Branch 2021-04-07 2021-04-07 Letter Orthopedic [facility] 1.2.840.114 [id number] Univers 00:00:00 00:00:00 (Out) Clinic SPECIALTY 350.1.13.10 ity of CARE 4.2.7.2.686 [facility] AT [phone] La pritesh PATINO 198 [facility] 2021-04-02 2021-04-02 Emergency X ANALILIA GREEN ERT [id number] Univers 12:58:00 15:25:00 AZALEA ity [facility] 2021-04-02 2021-04-02 Emergency Beatriz [facility] 1.2.840.114 [id number] Univers 12:58:00 15:25:00 Azalea WHITT 350.1.13.10 ity of [place] 4.2.7.2.686 [place] [facility] [phone] [facility] 084 Branch 2021-03-11 2021-03-11 Telephone VERONIQUE Cruz 1.2.284.211 [id number] Univers 00:00:00 00:00:00 Francescharley SÁNCHEZ 350.1.13.10 it y of [facility] 4.2.7.2.[address] [place] [phone] [facility] 019 Branch 2021-03-10 2021-03-10 Outpatient R [facility] [id number] Univers 14:45:00 14:51:40 LEXIE ity [facility] 2021-03-10 2021-03-10 Outpatient [facility] [id number] -[id number] Univers 14:45:00 14:45:00 [id number] ity [facility] 2021-03-10 2021-03-10 Laboratory Only, Ang Db Test [facility] 1.2.8 40.114 [id number] Univers 14:29:53 14:44:53 Only Unknown, Attending HEALTH 350.1.13.10 ity of [place] 4.2.7.2.686 Quang as MARINA?BLEA [phone] [address] MEDICAL OFFICE BUILDING 2021-03-10 2021-03-10 Orders Doctor VERONIQUE 1.2.840.114 [id number] Univers 00:00:00 00:00:00 Only Unassigned, GONZALO 350.1.13.10 ity of [place] [facility] 4.2.7.2.[address] [phone] [facility] 009 Branch 2021-02-18 2021-02-20 [facility] Sharita Suresh 1.2.840.1 [id number] Methodi 15:45:00 14:08:00 Encounter Jeremy Sandoval 05141.1.[address] 3.430.2.7 Hospit a .3.915666 l .8 2021-02-18 2021-02-20 [facility] Sharita Suresh 1.2.840.1 [id number] Methodi 15:45:00 14:08:00 Encounter Jeremy Sandoval 83563.1.[address] 3.430.2.7 Hospit a .3.442689 l .8 2021-02-03 2021-02-04 Emergency X [facility] ERT [id number] Univers 21:10:00 03:21:00 GARTH ity of [facility] 2020-10-21 2020-10-27 Inpatient SYLVIA, [facility] [id number] [place] 00:00:00 00:00:[address] 2020-10-06 2020-10-06 Transition Jocelyne Taylor 1.2.840.114 [id number] Univers 00:00:00 00:00:00 of Care Madiha Sotelo 350.1.13.10 i ty of [place] 4.2.7.2.686 [facility] [phone] [facility] 403 Branch 2020-09-28 2020-10-03 [facility] [place] [facility] 1.2.840. 114 [id number] Univers 22:23:00 13:05:00 Encounter Shaina Pinto 350.1.13.10 ity of [place]2.[place] [id number] [facility] 081 Branch 2020-09-28 2020-09-28 Orders Doctor VERONIQUE 1.2.840.114 [id number] Univers 00:00:00 00:00:00 Only Unassigned, GONZALO 350.1.13.10 ity of [place] [facility] 4.2.7.2.[phone] [facility] 009 Branch 2020-09-09 2020-09-12 Inpatient NAKIA CRUZ [facility] [id number] [place] 00:00:00 00:00:[address] 2020-08-08 2020-08-08 [facility] [id number] Univers 15:40:00 15:40:00 TERRI ity of [facility] 2020-07-11 2020-07-11 [facility] [id number] Univers 15:40:00 15:40:00 ity of [facility] 2020-06-09 2020-06-22 Inpatient NAKIA CRUZ [facility] 064 [id number] 97596 [place] 00:00:00 00:00:00 836 Method i 2020-03-19 2020-03-23 Inpatient DINAKAR, [facility] 932 [id number] [place] 00:00:00 00:00:00 JEREMY 742 Method i 2020-03-14 2020-03-18 Inpatient DINAKAR, [facility] 884 [id number] 585 [place] 00:00:00 00:00:00 JEREMY 157 Method i 2020-02-13 2020-02-13 Laboratory Lab, [facility] 1.2.840.114 [id number] 10:22:10 10:42:10 Only Fam Pob I Health 350.1.13.10 [place] 4.2.7.2.686 Professio [phone] [place] [address] Office Building [facility] 2020-02-13 2020-02-13 Laboratory Lab, [facility] Fam Pob I [facility] 1.2. 840.114 [id number] [facility] 10:22:10 10:42:10 Only [facility] 350.1.13.10 ity [facility] 4.2.7.2.686 Quang as Professio [phone] La dical [address] Office Building [facility] 2019-09-28 2019-09-28 Out[facility] [id number] Common 09:00:00 09:00:00 t Bone Bone and Spiri t and Joint Joint - [facility] 2019-09-18 2019-09-18 [facility] [id number] Common 09:30:00 09:30:00 t Bone Bone and Spiri t and Joint Joint - [facility] 2019-08-14 2019-08-14 Transition Jocelyne Alexandra 1.2.840.114 [id number] [id number] 00:00:00 00:00:00 of Care Jovanny Coopery 350.1.13.10 [place] 4.2.7.2.686 [id number] [facility] 2019-08-14 2019-08-14 Transition Jocelyne Alexandra 1.2.840.114 [id number] Univers 00:00:00 00:00:00 of Care Jovanny Sotelo 350.1.13.10 ity of [place] [place] [phone] [facility] 403 Branch 2019-08-10 2019-08-11 [facility] 1.2.432.137 [id number] 02:55:00 16:09:00 Encounter Shaina Whitt 350.1.13.10 [place] 4.2.7.2.686 [place] [id number] 081 2019-08-10 2019-08-11 Inpatient U [facility] [id number] Univers 02:55:00 16:09:00 ADNAN ity [facility] 2019-08-10 2019-08-11 [facility] 1.2.469.348 [id number] Univers 02:55:00 16:09:00 Encounter Shaina Whitt 350.1.13.10 ity of [place]2.[place] [id number] [facility] 081 Branch Results Test Description Test Time Test Comments Results Result Comments Source ECG 12 lead 2021-12-12 12:19:45 Test Item Value Reference Range Interpretation Comme nts Ventricular rate (test code = 253) Atrial rate (test code = 255) RI interval (test code = 266) QRSD interval (test code = 260) QT interval (test code = 264) QTC interval (test code = 265) P axis 1 (test code = 267) QRS axis 1 (test code = 268) T wave axis (test code = 270) EKG impression (test code = 273) Normal sinus rhythm-Right bundle b ranch block-Abnormal ECG-In automated comparison with ECG of 26-NOV-2021 19:29,-No significant change was found- [facility] ED Preliminary Interpretation - Not an [id number] 05:33:45 Test Item Value Reference Range Interpretation Comments SNOW (test code = SNOW) Stevo Hoskins DO 12/13/2021 12:08 [facility] ED Preliminary Interpretation - Not an OrderPerformed by: Stevo Hoskins DOAuthorized by: Stevo Hoskins DO ECG reviewed by ED Physician in the absence of a automotive repair technician: yes Previous ECG: Previous ECG: UnavailableInterpretat ion: Interpretation: abnormal Rate: ECG rate: 63 ECG rate assessment: normal Rhythm: Rhythm: sinus rhythm Ectopy: Ectopy: none QRS: QRS axis: Normal QRS intervals: NormalConduction: Conduction: abnormal Abnormal conduction: complete RBBB ST segments: ST segments: NormalT waves: T waves: non-specific Lab Interpretation Abnormal (test code = 66557-5) [id number] 05:22:00 Test Item Value Reference Range Interpretation Comments Urine culture (test SEE COMMENT Bacteriu bartolo screen code = 4046906) negative. [facility] [Presence] in Respiratory specimen by HELENA with probe [id number] 02:31:14 Test Item Value Reference Range Interpretation Comments SARS-CoV-2 (COVID-19) RNA Not detected [Presence] in Respiratory specimen by HELENA with probe detection (test code = 61445-9) 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 employed in a Unknown healthcare setting (test code = 27271-8) Whether the patient has symptoms Unknown related to condition of interest (test code = 46982-2) Whether the patient was Unknown hospitalized for condition of interest (test code = 18239-5) Whether the patient was admitted Unknown to intensive care unit (ICU) for condition of interest (test code = 85504-0) Whether patient resides in a Unknown congregate care setting (test code = 78254-1) status (test code = Unknown 07727-8) Date and time of symptom onset Unknown (test code = 83246-0) ECG 12 [id number] 13:24:41 Test Item Value Reference Range Interpretation Comments Ventricular rate (test code = 253) Atrial rate (test code = 255) RI interval (test code = 266) QRSD interval (test code = 260) QT interval (test code = 264) QTC interval (test code = 265) P axis 1 (test code = 267) QRS axis 1 (test code = 268) T wave axis (test code = 270) EKG impression (test code Normal sinus = 273) rhythm-Right bundle branch block- [facility] ED Preliminary Interpretation - Not an [id number] 00:04:12 Test Item Value Reference Range Interpretation Comments SNOW (test code = SNOW) Jefferson Skelton MD 12/04/2021 11:12 [facility] ED Preliminary Interpretation - Not an OrderPerformed by: Jefferson Skelton MDAuthorized by: Jefferson Skelton MD ECG reviewed by ED Physician in the absence of a automotive repair technician: yes Interpretation: Interpretation: abnormal Rate: ECG rate: 70 ECG rate assessment: normal Rhythm: Rhythm: sinus rhythm QRS: QRS axis: Normal QRS intervals: WideConduction: Conduction: abnormal Abnormal conduction: complete RBBB ST segments: ST segments: NormalOther findings: Other findings: prolonged qTc interval Lab Interpretation Abnormal (test code = 62688-0) [facility] [id number] 02:26:00 Test Item Value Reference Range Interpretation Comments Urine culture (test SEE COMMENT Bacteriu bartolo screen code = 3055545) negative. [facility] RNA [Presence] in Respiratory specimen by HELENA with probe [id number] 00:33:54 Test Item Value Reference Range Interpretation Comments SARS-CoV-2 (COVID-19) RNA Not detected [Presence] in Respiratory specimen by HELENA with probe detection (test code = 16822-6) 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 employed in a Unknown healthcare setting (test code = 49338-3) Whether the patient has symptoms Unknown related to condition of interest (test code = 13191-2) Whether the patient was Unknown hospitalized for condition of interest (test code = 87544-4) Whether the patient was admitted Unknown to intensive care unit (ICU) for condition of interest (test code = 42957-1) Whether patient resides in a Unknown congregate care setting (test code = 07092-7) status (test code = Unknown 26777-1) Date and time of symptom onset Unknown (test code = 79507-7) [id number] 09:34:08 Test Item Value Reference Range Interpretation Comments MAGNESIUM (test code = 0795333530) 1.4 mg/dL 1.7-2.4 L Lab Interpretation (test code = Abnormal 70800-9) [facility]OL[facility] (19426)2020-10-03 09:33:48 Test Item Value Reference Range Interpretation Comments NA (test code = 136 mmol/L 135-145 3992409427) K (test code = 3.3 mmol/L 3.5-5.0 L 6852643558) CL (test code = 100 mmol/L 98-108 4456440021) CO2 TOTAL (test code = 33 mmol/L 23-31 H 1528262892) AGAP (test code = 2-16 0437701150) BUN (test code = 3 mg/dL 7-23 L 8539052978) GLUCOSE (test code = 95 mg/dL 70-110 4571280248) CREATININE (test code = 0.47 mg/dL 0.50-1.04 L 4931881406) TOTAL BILI (test code = 1.5 mg/dL 0.1-1.1 H 3238213496) CALCIUM (test code = 8.1 mg/dL 8.6-10.6 L 6001848289) T PROTEIN (test code = 5.9 g/dL 6.3-8.2 L 1957579540) ALBUMIN (test code = 2.9 g/dL 3.5-5.0 L 1443647652) ALK PHOS (test code = 115 U/L 34-122 3013738944) ALTv (test code = 24 U/L 5-35 1742-6) AST(SGOT) (test code = 35 U/L 13-40 8795135496) eGFR (test code = mL/min/1.73m2 0804923418) SNOW (test code = SNOW) Association of [...] tests). Lab Interpretation Abnormal (test code = 33141-5) [facility] 09:33:28 Test Item Value Reference Range Interpretation Comments PHOSPHORUS (test code = 0627619844) 2.8 mg/dL 2.5-5.0 Lab Interpretation (test code = Normal 25848-5) [facility] WITH [id number] 09:31:46 Test Item Value Reference Range Interpretation [...] (test code = 53.8 fL 39.0-49.9 H 61089-8) RDW-CV (test code = 19.9 % 12.0-15.5 H 788-0) PLT (test code = See_Comment L [Automated 777-3) message] The sy stem which generated this result transmitted reference range : 166 - 358 10*3/ ?L. The reference r davi was not used to interpret this result as normal/abnormal . MPV (test code = 10.9 fL 9.5-12.9 22876-4) IPF % (test code = 3.6 % 1.3-7.7 Platelet count 7511646630) measured by fluorescence method. NRBC/100 WBC (test See_Comment [Automat ed code = 3103534254) message] The system which generated this result transmitted reference range : 0.0 - 10.0 /100 WBCs. The refer ence range was not u sed to interpret th is result as normal/abnormal . NRBC x10^3 (test code See_Comment [Auto mated = 6741949510) message] The s ystem which generated this result transmitted reference range : 10*3/?L. The reference range was not used to interpret this result as normal/abnormal . GRAN MAT (NEUT) % 68.1 % (test code = 770-8) IMM GRAN % (test code 1.10 % = 9983771049) LYMPH % (test code = 15.5 % 736-9) MONO % (test code = 11.3 % 5905-5) EOS % (test code = 3.4 % 713-8) BASO % (test code = 0.6 % 706-2) GRAN MAT x10^3(ANC) 2.42 10*3/uL 1.88-7.09 (test code = 6952157203) IMM GRAN x10^3 (test 0.04 10*3/uL 0.00-0.06 code = 2822315022) LYMPH x10^3 (test code 0.55 10*3/uL 1.32-3.29 L = 731-0) MONO x10^3 (test code 0.40 10*3/uL 0.33-0.92 = 742-7) EOS x10^3 (test code = 0.12 10*3/uL 0.03-0.39 711-2) BASO x10^3 (test code <0.03 0.01-0.07 = 704-7) Lab Interpretation Abnormal (test code = 08824-6) [facility] WITH [id number] 10:47:09 Test Item Value Reference Range Interpretation [...] (test code = 52.2 fL 39.0-49.9 H 11156-3) RDW-CV (test code = 18.6 % 12.0-15.5 H 788-0) PLT (test code = See_Comment L [Automated 777-3) message] The sy stem which generated this result transmitted reference range : 166 - 358 10*3/ ?L. The reference r davi was not used to interpret this result as normal/abnormal . MPV (test code = 10.1 fL 9.5-12.9 09170-2) IPF % (test code = 3.2 % 1.3-7.7 Platelet count 0613334725) measured by fluorescence method. NRBC/100 WBC (test See_Comment [Automat ed code = 4994832383) message] The system which generated this result transmitted reference range : 0.0 - 10.0 /100 WBCs. The refer ence range was not u sed to interpret th is result as normal/abnormal . NRBC x10^3 (test code See_Comment [Auto mated = 9575783880) message] The s ystem which generated this result transmitted reference range : 10*3/?L. The reference range was not used to interpret this result as normal/abnormal . GRAN MAT (NEUT) % 65.1 % (test code = 770-8) IMM GRAN % (test code 1.20 % = 5882161715) LYMPH % (test code = 16.9 % 736-9) MONO % (test code = 11.5 % 5905-5) EOS % (test code = 4.5 % 713-8) BASO % (test code = 0.8 % 706-2) GRAN MAT x10^3(ANC) 1.58 10*3/uL 1.88-7.09 L (test code = 6086445403) IMM GRAN x10^3 (test 0.03 10*3/uL 0.00-0.06 code = 3630682432) LYMPH x10^3 (test code 0.41 10*3/uL 1.32-3.29 L = 731-0) MONO x10^3 (test code 0.28 10*3/uL 0.33-0.92 L = 742-7) EOS x10^3 (test code = 0.11 10*3/uL 0.03-0.39 711-2) BASO x10^3 (test code <0.03 0.01-0.07 = 704-7) POLYCHROMASIA (test 2+ See_Comment [Automa josemanuel code = 07782-7) message] The system which generated this result transmitted reference range : 2+. The referen ce range was not u sed to interpret th is result as normal/abnormal . LG GRAN LYMPHS (test Rare Rare code = 3471633367) Lab Interpretation Abnormal (test code = 06056-2) [facility]. METABOLIC PANEL (64914)2020-10-02 10:19:28 Test Item Value Reference Range Interpretation Comments NA (test code = 135 mmol/L 135-145 9046267221) K (test code = 3.4 mmol/L 3.5-5.0 L 7707313508) CL (test code = 104 mmol/L 98-108 5314528620) CO2 TOTAL (test code = 27 mmol/L 23-31 7097815272) AGAP (test code = 2-16 3079811952) BUN (test code = 4 mg/dL 7-23 L 6739346856) GLUCOSE (test code = 97 mg/dL 70-110 5525915058) CREATININE (test code = 0.45 mg/dL 0.50-1.04 L 7685707878) TOTAL BILI (test code = 1.7 mg/dL 0.1-1.1 H 0024906964) CALCIUM (test code = 8.2 mg/dL 8.6-10.6 L 9120098808) T PROTEIN (test code = 6.0 g/dL 6.3-8.2 L 3807162183) ALBUMIN (test code = 3.1 g/dL 3.5-5.0 L 9800584232) ALK PHOS (test code = 120 U/L 34-122 6694923038) ALTv (test code = 26 U/L 5-35 1742-6) AST(SGOT) (test code = 39 U/L 13-40 4769835492) eGFR (test code = mL/min/1.73m2 6535269682) SNOW (test code = SNOW) Association of [...] tests). Lab Interpretation Abnormal (test code = 92939-3) [facility] COVID [id number] 02:50:27COVID DMT InterpretationInterpretation/Recommendations: Molecular NAAT Tests for [...] record. [facility] LABORATORY SERVICESCOVID VqrmppkLZEC-YaA-1 NAAT (no units) ? ? Date ? Value ? 02/13/2020 ? Not Detected ? SARS-CoV-2 Rapid ID NOW (no units) ? ? Date ? Value ? 09/29/2020 ? Not Detected ? ? ? 08/10/2019 ? Not Detected ? [facility] WITH [id number] 10:31:29 Test Item Value Reference Range Interpretation [...] (test code = 52.3 fL 39.0-49.9 H 06834-0) RDW-CV (test code = 18.4 % 12.0-15.5 H 788-0) PLT (test code = See_Comment LL [Automated 777-3) message] The sy stem which generated this result transmitted reference range : 166 - 358 10*3/ ?L. The reference r davi was not used to interpret this result as normal/abnormal . MPV (test code = 11.2 fL 9.5-12.9 34790-9) IPF % (test code = 3.9 % 1.3-7.7 Platelet count 1184867775) measured by fluorescence method. NRBC/100 WBC (test See_Comment [Automat ed code = 6981803036) message] The system which generated this result transmitted reference range : 0.0 - 10.0 /100 WBCs. The refer ence range was not u sed to interpret th is result as normal/abnormal . NRBC x10^3 (test code <0.01 See_Comment [Auto mated = 2628663962) message] The s ystem which generated this result transmitted reference range : 10*3/?L. The reference range was not used to interpret this result as normal/abnormal . GRAN MAT (NEUT) % 57.5 % (test code = 770-8) IMM GRAN % (test code 0.50 % = 4076978284) LYMPH % (test code = 20.7 % 736-9) MONO % (test code = 13.3 % 5905-5) EOS % (test code = 6.9 % 713-8) BASO % (test code = 1.1 % 706-2) GRAN MAT x10^3(ANC) 1.08 10*3/uL 1.88-7.09 L (test code = 7206040464) IMM GRAN x10^3 (test <0.03 0.00-0.06 code = 5358369357) LYMPH x10^3 (test code 0.39 10*3/uL 1.32-3.29 L = 731-0) MONO x10^3 (test code 0.25 10*3/uL 0.33-0.92 L = 742-7) EOS x10^3 (test code = 0.13 10*3/uL 0.03-0.39 711-2) BASO x10^3 (test code <0.03 0.01-0.07 = 704-7) BASO STIPPLING (test Present A code = 703-9) ELLIPTO/OVAL (test 2+ See_Comment A [Automat ed code = 66774-1) message] The system which generated this result transmitted reference range : (none). The reference range was not used to interpret this result as normal/abnormal . POLYCHROMASIA (test 2+ See_Comment [Automa josemanuel code = 03536-8) message] The system which generated this result transmitted reference range : 2+. The referen ce range was not u sed to interpret th is result as normal/abnormal . Lab Interpretation Abnormal (test code = 37488-2) [facility]. METABOLIC PANEL (03649)2020-10-01 09:19:22 Test Item Value Reference Range Interpretation Comments NA (test code = 135 mmol/L 135-145 9762737890) K (test code = 4.0 mmol/L 3.5-5.0 4028067935) CL (test code = 107 mmol/L 98-108 8968566208) CO2 TOTAL (test code = 24 mmol/L 23-31 1289326260) AGAP (test code = 2-16 7024368890) BUN (test code = 7 mg/dL 7-23 4145736687) GLUCOSE (test code = 93 mg/dL 70-110 3820177115) CREATININE (test code = 0.47 mg/dL 0.50-1.04 L 3709206064) TOTAL BILI (test code = 1.6 mg/dL 0.1-1.1 H 8961721177) CALCIUM (test code = 8.1 mg/dL 8.6-10.6 L 3400022131) T PROTEIN (test code = 5.8 g/dL 6.3-8.2 L 2513937028) ALBUMIN (test code = 2.8 g/dL 3.5-5.0 L 1764214073) ALK PHOS (test code = 106 U/L 34-122 6956721742) ALTv (test code = 23 U/L 5-35 1742-6) AST(SGOT) (test code = 39 U/L 13-40 1371287130) eGFR (test code = mL/min/1.73m2 1613549068) SNOW (test code = SNOW) Association of [...] tests). Lab Interpretation Abnormal (test code = 13965-5) [facility] [id number] 20:47:45 Test Item Value Reference Range Interpretation Comments TROPONIN I (test 0.002 ng/mL See_Comment [Automated code = 4859364714) message] The system which generated this result [...] ? Lab Interpretation Normal (test code = 83129-4) [facility] [id number] 19:11:57 Test Item Value Reference Range Interpretation Comments URINE CULTURE (test code <10,000 CFU/mL = 630-4) Gram-Positive Cocci [facility] BY [id number] 18:17:03 Test Item Value Reference Range Interpretation Comments Campylobacter (jejuni, Negative Negative, coli and upsaliensis) Indeterminate, (test code = 57379-4) See comment Plesiomonas shigelloides Negative Negative, (test code = 28861-1) Indeterminate, See comment Salmonella (test code = Negative Negative, 96655-8) Indeterminate, See comment Yersinia enterocolitica Negative Negative, (test code = 82218-8) Indeterminate, See comment Vibrio (test code = Negative Negative, 08972-2) Indeterminate, See comment Vibrio cholerae (test Negative Negative, code = 79886-6) Indeterminate, See comment Enteroaggregative E. Negative Negative, coli (EAEC) (test code = Indeterminate, 88780-9) See comment Enteropathogenic E. coli Negative Negative, N/A, (EPEC) (test code = Indeterminate, 33759-5) See comment Enterotoxigenic E. coli Negative Negative, (ETEC) (test code = Indeterminate, 85318-8) See comment Shiga toxin-Producing E. Negative Negative, coli (STEC) (test code = Indeterminate, 76641-1) See comment Shigella/Enteroinvasive Negative Negative, E. coli (EIEC) (test Indeterminate, code = 94706-4) See comment Cryptosporidium (test Negative Negative, code = 61557-4) Indeterminate, See comment Cyclospora cayetanensis Negative Negative, (test code = 36974-0) Indeterminate, See comment Entamoeba histolytica Negative Negative, (test code = 19108-3) Indeterminate, See comment Giardia lamblia (test Negative Negative, code = 59131-3) Indeterminate, See comment Adenovirus F 40/41 (test Negative Negative, code = 40342-0) Indeterminate, See comment Astrovirus (test code = Negative Negative, 48463-8) Indeterminate, See comment Norovirus GI/GII (test Negative Negative, code = 62842-6) Indeterminate, See comment Rotavirus A (test code = Negative Negative, 94032-6) Indeterminate, See comment Sapovirus (test code = Negative Negative, 57653-4) Indeterminate, See comment Clostridioides Positive Negative, A (Clostridium) difficile Indeterminate, Toxin A/B (test code = See comment 24403-2) SNOW (test code = SNOW) Based on [employer] GI Panel package insert, the [employer] GI Panel contains a single multiplexed assay [...] the binary toxin gene (CDT), and the ifvfij-elbb-topd deletion at nucleotide 117 within the gene [...] organism. Lab Interpretation (test Abnormal code = 90885-1) [facility] [id number] 14:26:32 Test Item Value Reference Range Interpretation Comments Occult (guaiac) Blood (test code = Negative Negative 2335-8) Lab Interpretation (test code = Normal 85873-2) [facility] WITH [id number] 13:54:12 Test Item Value Reference Range Interpretation [...] (test code = 52.9 fL 39.0-49.9 H 63255-4) RDW-CV (test code = 18.3 % 12.0-15.5 H 788-0) PLT (test code = See_Comment LL [Automated 777-3) message] The sy stem which generated this result transmitted reference range : 166 - 358 10*3/ ?L. The reference r davi was not used to interpret this result as normal/abnormal . MPV (test code = 10.8 fL 9.5-12.9 28416-4) IPF % (test code = 4.2 % 1.3-7.7 Platelet count 5297359788) measured by fluorescence method. NRBC/100 WBC (test See_Comment [Automat ed code = 9891705627) message] The system which generated this result transmitted reference range : 0.0 - 10.0 /100 WBCs. The refer ence range was not u sed to interpret th is result as normal/abnormal . NRBC x10^3 (test code <0.01 See_Comment [Auto mated = 3206259431) message] The s ystem which generated this result transmitted reference range : 10*3/?L. The reference range was not used to interpret this result as normal/abnormal . GRAN MAT (NEUT) % 60.0 % (test code = 770-8) IMM GRAN % (test code 0.40 % = 5236234869) LYMPH % (test code = 20.6 % 736-9) MONO % (test code = 11.3 % 5905-5) EOS % (test code = 6.9 % 713-8) BASO % (test code = 0.8 % 706-2) GRAN MAT x10^3(ANC) 1.49 10*3/uL 1.88-7.09 L (test code = 3128721295) IMM GRAN x10^3 (test <0.03 0.00-0.06 code = 0492869891) LYMPH x10^3 (test code 0.51 10*3/uL 1.32-3.29 L = 731-0) MONO x10^3 (test code 0.28 10*3/uL 0.33-0.92 L = 742-7) EOS x10^3 (test code = 0.17 10*3/uL 0.03-0.39 711-2) BASO x10^3 (test code <0.03 0.01-0.07 = 704-7) Lab Interpretation Abnormal (test code = 57244-0) [facility]. METABOLIC PANEL (87354)2020-09-30 12:47:49 Test Item Value Reference Range Interpretation Comments NA (test code = 135 mmol/L 135-145 6360979003) K (test code = 4.0 mmol/L 3.5-5.0 2720495384) CL (test code = 108 mmol/L 98-108 7759024077) CO2 TOTAL (test code = 23 mmol/L 23-31 8023084685) AGAP (test code = 2-16 1326794555) BUN (test code = 8 mg/dL 7-23 6136660870) GLUCOSE (test code = 109 mg/dL 70-110 4605666866) CREATININE (test code = 0.52 mg/dL 0.50-1.04 1782324430) TOTAL BILI (test code = 1.7 mg/dL 0.1-1.1 H 7084856236) CALCIUM (test code = 8.0 mg/dL 8.6-10.6 L 1472603630) T PROTEIN (test code = 5.7 g/dL 6.3-8.2 L 5696086513) ALBUMIN (test code = 2.7 g/dL 3.5-5.0 L 1313831474) ALK PHOS (test code = 106 U/L 34-122 5055113448) ALTv (test code = 22 U/L 5-35 1742-6) AST(SGOT) (test code = 34 U/L 13-40 4704143169) eGFR (test code = mL/min/1.73m2 4211842717) SNOW (test code = SNOW) Association of [...] tests). Lab Interpretation Abnormal (test code = 82225-6) [facility]FEC[facility] [id number] 11:49:39 Test Item Value Reference Range Interpretation Comments Fecal Leukocytes (test code = Positive Negative A 0776232371) Lab Interpretation (test code = Abnormal 16836-0) [facility]MINAL [id number] 10:20:53 Test Item Value Reference Range Interpretation Comments NT-proBNP (test code 68 pg/mL See_Comment [Autom ated = 3649833117) message] The system which generated this result transmitted reference range : <=125. The reference range was not used to interpret this result as normal/abnormal . SNOW (test code = SNOW) Biotin has been reported to cause a negative bias, interpret results relative to patient's use of biotin. Lab Interpretation Normal (test code = 06774-1) [facility] HospitalCLOSTRIDIUM DIFFICILE [id number] 05:18:16 Test Item Value Reference Range Interpretation Comments Clostridioides (Clostridium) Negative Negative difficile (test code = 83584-1) Lab Interpretation (test code = Normal 30061-5) [facility]PO[facility]SE (AUTOMATED)2020-09-30 00:54:42 Test Item Value Reference Range Interpretation Comments POCT GLU (test code = 0762589124) 111 mg/dL 70-110 H Lab Interpretation (test code = Abnormal 01308-5) [facility]BASIC [facility]OLIC PANEL (NA, K, CL, CO2, GLUCOSE, BUN, CREATININE, CA)2020-09-29 22:08:22 Test Item Value Reference Range Interpretation Comments NA (test code = 135 mmol/L 135-145 0542547255) K (test code = 3.7 mmol/L 3.5-5.0 2809973328) CL (test code = 108 mmol/L 98-108 0579304527) CO2 TOTAL (test code = 22 mmol/L 23-31 L 5345196769) AGAP (test code = 2-16 7388696990) BUN (test code = 9 mg/dL 7-23 1919124352) GLUCOSE (test code = 104 mg/dL 70-110 8555502089) CREATININE (test code = 0.51 mg/dL 0.50-1.04 1505656733) CALCIUM (test code = 7.9 mg/dL 8.6-10.6 L 5458903743) eGFR (test code = mL/min/1.73m2 9081043632) SNOW (test code = SNOW) Association of [...] tests). Lab Interpretation Abnormal (test code = 29964-9) [facility]HEMOGLOBIN2021-06-21 21:41:20 Test Item Value Reference Range Interpretation Comments HGB (test code = 718-7) 7.4 g/dL 11.6-15.0 L Lab Interpretation (test code = Abnormal 51417-7) [facility] HospitalVITAMIN B12, [id number] 20:39:52 Test Item Value Reference Range Interpretation Comments VIT B12 (test code = 212 pg/mL 240-930 L 8260557118) SNOW (test code = SNOW) Biotin has been reported to cause a positive bias, interpret results relative to patient's use of biotin. 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.[facility] HospitalC-REACTIVE [id number] 17:01:56 Test Item Value Reference Range Interpretation Comments CRP (test code = 3173366021) 4.7 mg/dL <0.8 H Lab Interpretation (test code = Abnormal 17076-5) [facility] HospitalVITAMIN D, [id number] 16:43:29 Test Item Value Reference Range Interpretation Comments VIT D 25OH (test code = <13 25-80 L 36726-7) SNOW (test code = SNOW) Deficiency: <20 ng/mLInsufficiency: 20-24 ng/mLOptimal: 25-80 ng/mL Lab Interpretation (test Abnormal code = 78948-2) [facility] HospitalPROCALCITONIN2021-06-21 16:15:30 Test Item Value Reference Range Interpretation Comments Procalcitonin (test 0.08 ng/mL <0.07 H code = 8177851759) SNOW (test code = SNOW) INTERPRETATION OF [...] lung abscess/empyema. For further information please refer to:[email or web address] Lab Interpretation Abnormal (test code = 26042-7) [facility] HospitalOSMOLALITY [id number] 15:35:14 Test Item Value Reference Range Interpretation Comments OSMO U (test code = See_Comment [Automa josemanuel message] 2669638841) The system [employer] games generated this result transmitted ref erence range: 50-1,100 mOsm/kg. The re ference range was not u sed to interpret this result as normal/abnor mal. Lab Interpretation (test Normal code = 03493-8) [facility] HospitalTROPONIN [id number] 14:04:56 Test Item Value Reference Range Interpretation Comments TROPONIN I (test 0.002 ng/mL See_Comment [Automated code = 9968743145) message] The system which generated this result [...] ? Lab Interpretation Normal (test code = 71059-4) [facility] HospitalCT ABDOMEN PELVIS W [id number] 13:37:17 1. ?Findings concerning for infectious or [...] reviewed this study and agree with theabove report.[facility] WITH [id number] 11:41:25 Test Item Value Reference Range Interpretation [...] (test code = 52.4 fL 39.0-49.9 H 59824-6) RDW-CV (test code = 18.2 % 12.0-15.5 H 788-0) PLT (test code = See_Comment LL [Automated 777-3) message] The system which generated this result transmit josemanuel reference range : 166 - 358 10*3/ ?L. The reference range was not u sed to interpret th is result as normal/abnormal . MPV (test code = Not Measure d 35025-1) IPF % (test code = 4.3 % 1.3-7.7 Platelet count 3414425761) measured by fluorescence method. NRBC/100 WBC (test See_Comment [Automat ed code = 7293660589) message] The system which generated this result transmit josemanuel reference range : 0.0 - 10.0 /100 WBCs. The reference range was not used to interpret this result as normal/abnormal . NRBC x10^3 (test code <0.01 See_Comment [Auto mated = 8895086612) message] The system which generated this result transmit josemanuel reference range : 10*3/?L. The reference range was not used to interpret this result as normal/abnormal . GRAN MAT (NEUT) % 74.4 % (test code = 770-8) IMM GRAN % (test code 0.50 % = 0120950350) LYMPH % (test code = 10.3 % 736-9) MONO % (test code = 12.3 % 5905-5) EOS % (test code = 2.0 % 713-8) BASO % (test code = 0.5 % 706-2) GRAN MAT x10^3(ANC) 3.02 10*3/uL 1.88-7.09 (test code = 2731966066) IMM GRAN x10^3 (test <0.03 0.00-0.06 code = 0177477290) LYMPH x10^3 (test 0.42 10*3/uL 1.32-3.29 L code = 731-0) MONO x10^3 (test code 0.50 10*3/uL 0.33-0.92 = 742-7) EOS x10^3 (test code 0.08 10*3/uL 0.03-0.39 = 711-2) BASO x10^3 (test code <0.03 0.01-0.07 = 704-7) PLT ESTIMATE (test Decreased Normal A code = 9317-9) SNOW (test code = SNOW) CBC smear reduced platelet Lab Interpretation Abnormal (test code = 27974-1) [facility] HospitalN-TERMINAL [id number] 11:07:24 Test Item Value Reference Range Interpretation Comments NT-proBNP (test code 79 pg/mL See_Comment [Autom ated = 7113328948) message] The system which generated this result transmitted reference range : <=125. The reference range was not used to interpret this result as normal/abnormal . SNOW (test code = SNOW) Biotin has been reported to cause a negative bias, interpret results relative to patient's use of biotin. Lab Interpretation Normal (test code = 15622-3) [facility] HospitalIRON [id number] 11:04:41 Test Item Value Reference Range Interpretation Comments IRON (test code = 6215601518) 31 ug/dL 50-160 L TIBC (test code = 6130924510) 295 ug/dL 250-410 % FE SAT (test code = 5535354675) 11 % 20-50 L Lab Interpretation (test code = Abnormal 29940-4) [facility] HospitalPROTEIN CREAT RATIO URINE [id number] 10:57:19 Test Item Value Reference Range Interpretation Comments T. PROT U (test code = 2888-6) 9 mg/dL CREAT U (test code = 6729417614) 187.5 mg/dL Protein/Creatinine Ratio Urine 0.0-2.0 (test code = 3916354919) [facility] HospitalSOUM, URINE [id number] 10:53:21 Test Item Value Reference Range Interpretation Comments NA URINE (test code = 3727132998) 30 mmol/L [facility] HospitalSEDIMENTATION [id number] 10:33:04 Test Item Value Reference Range Interpretation Comments ESR (test code = See_Comment [Automated message] 1388960657) The system [employer] games generated this result transmitted ref erence range: 0 - 20 m m/HR. The reference r davi was not used to interpret this result as normal/abnor mal. Lab Interpretation (test Normal code = 75048-2) [facility] HospitalPROTHROMBIN TIME / [id number] 09:43:39 Test Item Value Reference Range Interpretation Comments PROTIME PATIENT (test See_Comment H [Auto mated message] code = 5964-2) The system [employer] generated this result transmitted ref erence range: 12.0 - 1 4.7 Seconds. The reference range was not used to int erpret this result as normal/abnormal . INR (test code = 6301-6) Nor mal INR <1.1; Warfarin Therap eutic range 2.0 to 3. 0 or 2.5 to 3.5, dep ending upon the indica tions. Lab Interpretation (test Abnormal code = 38289-1) [facility] HospitalLactic Acid Whole [id number] 08:42:38 Test Item Value Reference Range Interpretation Comments LACTIC ACID (test code = 1.47 mmol/L 0.50-2.20 5602499605) Lab Interpretation (test code = Normal 51283-4) [facility] HospitalFERRITIN [id number] 07:31:09 Test Item Value Reference Range Interpretation Comments FERRITIN (test code = 12.2 ng/mL 11.0-264.0 3313784843) SNOW (test code = SNOW) Biotin has been reported to cause a negative bias, interpret results relative to patient's use of biotin. Lab Interpretation (test Normal code = 36802-5) [facility] HospitalTHYROID STIMULATING [id number] 07:27:08 Test Item Value Reference Range Interpretation Comments TSH (test code = See_Comment [Automated message] 6320516405) The system [employer] generated this result transmitted ref erence range: 0.45 - 4 .70 mIU/L. The refe rence range was not u sed to interpret this result as normal/abnor mal. Lab Interpretation (test Normal code = 40138-1) [facility] HospitalGLYCOSYLATED HEMOGLOBIN (A1C)2020-09-29 07:05:40 Test Item Value Reference Range Interpretation Comments HGB A1C (test code = 5.0 % 4.0-5.7 4548-4) SNOW (test code = SNOW) Reference RangesNormal: <5.7%Prediabetes: 5.7 - 6.4%Diabetes: > 6.5% Lab Interpretation (test Normal code = 50869-7) [facility] HospitalURIC [id number] 07:05:35 Test Item Value Reference Range Interpretation Comments URIC ACID (test code = 8520831537) 4.2 mg/dL 2.9-6.0 Lab Interpretation (test code = Normal 41591-9) [facility] HospitalCREATINE [id number] 07:05:30 Test Item Value Reference Range Interpretation Comments CK (test code = 3029244130) 192 U/L 33-194 Lab Interpretation (test code = Normal 09969-5) [facility] HospitalN-TERMINAL [id number] 07:05:30 Test Item Value Reference Range Interpretation Comments NT-proBNP (test code 94 pg/mL See_Comment [Autom ated = 9989942853) message] The system which generated this result transmitted reference range : <=125. The reference range was not used to interpret this result as normal/abnormal . SNOW (test code = SNOW) Biotin has been reported to cause a negative bias, interpret results relative to patient's use of biotin. Lab Interpretation Normal (test code = 30451-7) [facility] HospitalMAGNESIUM2021-06-21 07:04:24 Test Item Value Reference Range Interpretation Comments MAGNESIUM (test code = 2570256954) 1.8 mg/dL 1.7-2.4 Lab Interpretation (test code = Normal 09249-3) [facility] HospitalPHOSPHORUS2021-06-21 07:03:39 Test Item Value Reference Range Interpretation Comments PHOSPHORUS (test code = 6752373498) 2.2 mg/dL 2.5-5.0 L Lab Interpretation (test code = Abnormal 58330-9) [facility] HospitalLIPID PANEL (58736)(TOTAL CHOLESTEROL, TRIGLYCERIDES, HDL)2020-09-29 06:56:06 Test Item Value Reference Range Interpretation Comments CHOL (test code = 132 mg/dL 120-200 1942754778) HDL (test code = 41 mg/dL >50 L 6827134569) HDLC RATIO (test code = See_Comment [Au tomated message] 3672375621) The system [employer] generated this result transmit josemanuel reference range : <=4.5. The refe rence range was not u sed to interpret th is result as normal/abnormal . TRIG (test code = 73 mg/dL 30-170 3474701142) LDL CHOL (test code = 76 mg/dL See_Comment [Auto mated message] 50982-6) The system [employer] generated this result transmit josemanuel reference range : <=160. The refe rence range was not u sed to interpret th is result as normal/abnormal . VLDL (test code = 15 mg/dL 5-60 1688299862) Lab Interpretation (test Abnormal code = 90472-1) [facility] HospitalCOVID-19 (ID NOW RAPID TESTING)2020-09-29 06:24:26 Test Item Value Reference Range Interpretation Comments SARS-CoV-2 Rapid ID NOW Not Detected Not Detected (test code = 63846-0) SNOW (test code = SNOW) ID NOW COVID-19 Assay is an isothermal nucleic acid amplification test intended for the qualitative detection of nucleic acid from SARS-CoV-2 viral RNA in nasopharyngeal ([employer]) specimens. It is used under Emergency Use [...] indicated. Lab Interpretation Normal (test code = 17698-7) [facility] HospitalURINALYSIS2021-06-21 04:43:31 Test Item Value Reference Range Interpretation Comments APPEARANCE (test code = Clear Clear 0294726770) COLOR (test code = Rosanne Yellow A 9933831965) PH (test code = 4.8-8.0 0475128666) SP GRAVITY (test code = 1.003-1.030 9488510889) GLU U QUAL (test code = Normal Normal 2725884154) BLOOD (test code = Negative Negative 7144181528) KETONES (test code = Negative Negative 6954656529) PROTEIN (test code = 30 mg/dL Negative A 2887-8) UROBILIN (test code = Normal Normal 9046606739) BILIRUBIN (test code = Negative Negative 7570001532) NITRITE (test code = Negative Negative 6497820289) LEUK RANULFO (test code = 25/uL Negative A 9923204507) RBC/HPF (test code = See_Comment [Autom ated message] 1057491810) The system [employer] generated this result transmitted ref erence range: 0 - 3 HP F. The reference range was not used to int erpret this result as normal/abnormal . WBC/HPF (test code = See_Comment [Autom ated message] 9134045864) The system [employer] generated this result transmitted ref erence range: 0 - 5 HP F. The reference range was not used to int erpret this result as normal/abnormal . BACTERIA (test code = Few Negative A 0488760680) MUCOUS (test code = Moderate Negative LPF A 4090020479) SQ EPITH (test code = HPF 6545996119) Lab Interpretation (test Abnormal code = 70509-7) [facility] HospitalCB WITH [id number] 04:39:35 Test Item Value Reference Range Interpretation Comments WBC (test code = See_Comment [Automated 7190-2) message] The system which generated this result [...] (test code = 51.3 fL 39.0-49.9 H 30774-8) RDW-CV (test code = 18.1 % 12.0-15.5 H 788-0) PLT (test code = See_Comment L [Automated 777-3) message] The system which generated this result transmit josemanuel reference range : 166 - 358 10*3/ ?L. The reference range was not u sed to interpret th is result as normal/abnormal . MPV (test code = 11.1 fL 9.5-12.9 24528-1) IPF % (test code = 3.7 % 1.3-7.7 Platelet count 0634108170) measured by fluorescence method. NRBC/100 WBC (test See_Comment [Automat ed code = 7907453929) message] The system which generated this result transmit josemanuel reference range : 0.0 - 10.0 /100 WBCs. The reference range was not used to interpret this result as normal/abnormal . NRBC x10^3 (test code <0.01 See_Comment [Auto mated = 5989632034) message] The system which generated this result transmit josemanuel reference range : 10*3/?L. The reference range was not used to interpret this result as normal/abnormal . GRAN MAT (NEUT) % 76.4 % (test code = 770-8) IMM GRAN % (test code 0.80 % = 6826915712) LYMPH % (test code = 9.4 % 736-9) MONO % (test code = 11.3 % 5905-5) EOS % (test code = 1.5 % 713-8) BASO % (test code = 0.6 % 706-2) GRAN MAT x10^3(ANC) 4.07 10*3/uL 1.88-7.09 (test code = 4992445764) IMM GRAN x10^3 (test 0.04 10*3/uL 0.00-0.06 code = 5030758285) LYMPH x10^3 (test 0.50 10*3/uL 1.32-3.29 L code = 731-0) MONO x10^3 (test code 0.60 10*3/uL 0.33-0.92 = 742-7) EOS x10^3 (test code 0.08 10*3/uL 0.03-0.39 = 711-2) BASO x10^3 (test code 0.03 10*3/uL 0.01-0.07 = 704-7) PLT ESTIMATE (test Decreased Normal A code = 9317-9) SNOW (test code = SNOW) Juan slide adgrees to decreased Platelet Lab Interpretation Abnormal (test code = 36068-4) [facility] HospitalCOMP. METABOLIC PANEL (07443)2020-09-29 04:25:42 Test Item Value Reference Range Interpretation Comments NA (test code = 134 mmol/L 135-145 L 2282288956) K (test code = 3.2 mmol/L 3.5-5.0 L 9175323429) CL (test code = 104 mmol/L 98-108 2918142883) CO2 TOTAL (test code = 24 mmol/L 23-31 3408647492) AGAP (test code = 2-16 5373045426) BUN (test code = 8 mg/dL 7-23 8251602555) GLUCOSE (test code = 105 mg/dL 70-110 9618214853) CREATININE (test code = 0.51 mg/dL 0.50-1.04 3035262645) TOTAL BILI (test code = 2.5 mg/dL 0.1-1.1 H 7060036875) CALCIUM (test code = 8.2 mg/dL 8.6-10.6 L 8877855790) T PROTEIN (test code = 6.3 g/dL 6.3-8.2 9001360719) ALBUMIN (test code = 3.1 g/dL 3.5-5.0 L 5392976966) ALK PHOS (test code = 136 U/L 34-122 H 6552344230) ALTv (test code = 24 U/L 5-35 1742-6) AST(SGOT) (test code = 30 U/L 13-40 5473119380) eGFR (test code = mL/min/1.73m2 1282147338) SNOW (test code = SNOW) Association of [...] tests). 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 employed in a healthcare 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 (test code = 78880-9) Whether the patient has symptoms related to condition of interest (test code = 59717-6) Patient was hospitalized because of this condition (test code = 36177-1) Whether the patient was admitted to intensive care unit (ICU) for condition of interest (test code = 19378-3) Whether patient resides in a congregate care setting (test code = 94892-0) SARS-CoV-2 (COVID-19) RNA [Presence] in Respiratory specimen by HELENA with probe svnaezpdk8984-74-24 02:47:43 Test Item Value Reference Range Interpretation Comments SARS-CoV-2 (COVID-19) RNA Not detected Not-Detected [Presence] in Respiratory specimen by HELENA with probe detection (test code = 45122-7) SARS-CoV-2 (COVID-19) RNA [Presence] in Respiratory specimen by HELENA with probe gyccendnx4083-75-29 16:32:37 Test Item Value Reference Range Interpretation Comments SARS-CoV-2 (COVID-19) RNA Not detected Not-Detected [Presence] in Respiratory specimen by HELENA with probe detection (test code = 46135-0) SARS-CoV-2 (COVID-19) RNA [Presence] in Respiratory specimen by HELENA with probe eupurlapp1457-34-22 05:29:57 Test Item Value Reference Range Interpretation Comments SARS-CoV-2 (COVID-19) RNA Not detected Not-Detected [Presence] in Respiratory specimen by HELENA with probe detection (test code = 88773-4) CT ABDOMEN PELVIS W [id number] 19:27:49 1. ?No evidence of small bowel [...] reviewed this study and agree with the abovereport.[facility] WITH [id number] 11:56:00 Test Item Value Reference Range Interpretation Comments WBC (test code = See_Comment L [Automated 9667-2) message] The sy stem which generated this result transmitted reference range : 4.30 - 11.10 10*3/?L. The reference range was not used to interpret this result as normal/abnormal . RBC (test code = See_Comment L [Automated 079-8) message] The sy stem which generated this [...] (test code = 58.0 fL 39-49.9 H 29171-3) RDW-CV (test code = 16.6 % 12-15.5 H 788-0) PLT (test code = See_Comment LL [Automated 777-3) message] The sy stem which generated this result transmitted reference range : 166 - 358 10*3/ ?L. The reference r davi was not used to interpret this result as normal/abnormal . MPV (test code = 11.0 fL 9.5-12.9 74923-6) IPF % (test code = 5.5 % 1.3-7.7 Platelet count 9434106007) measured by fluorescence method. NRBC/100 WBC (test See_Comment [Automat ed code = 0112495590) message] The system which generated this result transmitted reference range : 0.0 - 10.0 /100 WBCs. The refer ence range was not u sed to interpret th is result as normal/abnormal . NRBC x10^3 (test code <0.01 See_Comment [Auto mated = 6265537299) message] The s ystem which generated this result transmitted reference range : 10*3/?L. The reference range was not used to interpret this result as normal/abnormal . GRAN MAT (NEUT) % 57.6 % (test code = 770-8) IMM GRAN % (test code 0.00 % = 5818892593) LYMPH % (test code = 27.1 % 736-9) MONO % (test code = 11.8 % 5905-5) EOS % (test code = 3.1 % 713-8) BASO % (test code = 0.4 % 706-2) GRAN MAT x10^3(ANC) 1.47 10*3/uL 1.88-7.09 L (test code = 7309421936) IMM GRAN x10^3 (test <0.03 0-0.06 code = 9289979207) LYMPH x10^3 (test code 0.69 10*3/uL 1.32-3.29 L = 731-0) MONO x10^3 (test code 0.30 10*3/uL 0.33-0.92 L = 742-7) EOS x10^3 (test code = 0.08 10*3/uL 0.03-0.39 711-2) BASO x10^3 (test code <0.03 0.01-0.07 = 704-7) Lab Interpretation Abnormal (test code = 58679-2) [facility]. METABOLIC PANEL (07850)2019-08-11 10:42:00 Test Item Value Reference Range Interpretation Comments NA (test code = 138 mmol/L 135-145 7077888748) K (test code = 3.8 mmol/L 3.5-5 6557386515) CL (test code = 108 mmol/L 98-108 2211018443) CO2 TOTAL (test code = 24 mmol/L 23-31 6805067453) AGAP (test code = 2-16 5992408896) BUN (test code = 10 mg/dL 7-23 7402750467) GLUCOSE (test code = 108 mg/dL 70-110 6178256152) CREATININE (test code = 0.43 mg/dL 0.5-1.04 L 8200171255) TOTAL BILI (test code = 2.5 mg/dL 0.1-1.1 H 2415429475) CALCIUM (test code = 8.4 mg/dL 8.6-10.6 L 8232510272) T PROTEIN (test code = 6.1 g/dL 6.3-8.2 L 0614925397) ALBUMIN (test code = 3.1 g/dL 3.5-5 L 2844044242) ALK PHOS (test code = 102 U/L 34-122 3611192544) ALTv (test code = 52 U/L 5-35 H 1742-6) AST(SGOT) (test code = 63 U/L 13-40 H 3980771046) eGFR Calculation mL/min/1.73m2 (Non-) (test code = 0395059480) eGFR Calculation mL/min/1.73m2 () (test code = 7520249575) SNOW (test code = SNOW) Association of [...] tests). Lab Interpretation Abnormal (test code = 14144-2) [facility] BOWEL [id number] 02:08:11 1. ?No bowel obstruction. No fluoroscopic [...] or fluoroscopic time.RL 6[address] Un[facility] DallasSEDIMENTATION [id number] 16:19:00 Test Item Value Reference Range Interpretation Comments ESR (test code = See_Comment [Automated message] 7728209673) The system [employer] generated this result transmitted ref erence range: 0 - 20 m m/HR. The reference r davi was not used to interpret this result as normal/abnor mal. Lab Interpretation (test Normal code = 67961-9) [facility] 1 View - To confirm [...] system. No acute bony abnormalities are noted. [facility], Radiant Results Inft User - 08/10/2019 10:25 [...] reviewed this study and agree with the abovereport.[facility] WITH [id number] 13:48:00 Test Item Value Reference Range Interpretation [...] (test code = 58.4 fL 39-49.9 H 96137-5) RDW-CV (test code = 16.7 % 12-15.5 H 788-0) PLT (test code = See_Comment LL [Automated 777-3) message] The system which generated this result transmit josemanuel reference range : 166 - 358 10*3/ ?L. The reference range was not u sed to interpret th is result as normal/abnormal . MPV (test code = 10.5 fL 9.5-12.9 58007-8) IPF % (test code = 3.0 % 1.3-7.7 Platelet count 8829066350) measured by fluorescence method. NRBC/100 WBC (test See_Comment [Automat ed code = 6528697444) message] The system which generated this result transmit josemanuel reference range : 0.0 - 10.0 /100 WBCs. The reference range was not used to interpret this result as normal/abnormal . NRBC x10^3 (test code <0.01 See_Comment [Auto mated = 1078741575) message] The system which generated this result transmit josemanuel reference range : 10*3/?L. The reference range was not used to interpret this result as normal/abnormal . GRAN MAT (NEUT) % 57.1 % (test code = 770-8) IMM GRAN % (test code 0.40 % = 1612078190) LYMPH % (test code = 28.1 % 736-9) MONO % (test code = 10.4 % 5905-5) EOS % (test code = 3.6 % 713-8) BASO % (test code = 0.4 % 706-2) GRAN MAT x10^3(ANC) 1.42 10*3/uL 1.88-7.09 L (test code = 0980597210) IMM GRAN x10^3 (test <0.03 0-0.06 code = 4163545349) LYMPH x10^3 (test 0.70 10*3/uL 1.32-3.29 L code = 731-0) MONO x10^3 (test code 0.26 10*3/uL 0.33-0.92 L = 742-7) EOS x10^3 (test code 0.09 10*3/uL 0.03-0.39 = 711-2) BASO x10^3 (test code <0.03 0.01-0.07 = 704-7) PLT ESTIMATE (test Critically Normal AA code = 9317-9) Decreased Lab Interpretation Abnormal (test code = 92930-8) [facility] HospitalGLYCOSYLATED HEMOGLOBIN (A1C)2019-08-10 13:13:00 Test Item [...] Indicated Lab Interpretation Normal (test code = 42333-8) [facility] HospitalTHYROID STIMULATING [id number] 13:05:00 Test Item Value Reference Range Interpretation Comments TSH (test code = See_Comment [Automated message] 8808641137) The system [employer] games generated this result transmitted ref erence range: 0.45 - 4 .70 mIU/L. The refe rence range was not u sed to interpret this result as normal/abnor mal. Lab Interpretation (test Normal code = 83838-7) [facility] HospitalPREGNANCY TEST, [id number] 13:04:00 Test Item Value Reference Range Interpretation Comments PREG SERUM (test code Negative = 4803305781) SNOW (test code = SNOW) Less than 10 IU/L. ?If low titer or ectopic is suspected, resubmit specimen in 48-72 hours. [facility] HospitalLIPID PANEL (44795)(TOTAL CHOLESTEROL, TRIGLYCERIDES, HDL)2019-08-10 12:36:00 Test Item Value Reference Range Interpretation Comments CHOL (test code = 158 mg/dL 120-200 1730899780) HDL (test code = 47 mg/dL >50 L 2415552161) HDLC RATIO (test code = See_Comment [Au tomated message] 9405324159) The system [employer] games generated this result transmit josemanuel reference range : <=4.5. The refe rence range was not u sed to interpret th is result as normal/abnormal . TRIG (test code = 51 mg/dL 30-170 0943708113) LDL CHOL (test code = 101 mg/dL See_Comment [Auto mated message] 73500-1) The system [employer] generated this result transmit josemanuel reference range : <=160. The refe rence range was not u sed to interpret th is result as normal/abnormal . VLDL (test code = 10 mg/dL 5-60 7586202701) Lab Interpretation (test Abnormal code = 25627-7) [facility] HospitalCOM. METABOLIC PANEL (29304)2019-08-10 12:35:00 Test Item Value Reference Range Interpretation Comments NA (test code = 139 mmol/L 135-145 8568125575) K (test code = 3.9 mmol/L 3.5-5 6752847271) CL (test code = 109 mmol/L 98-108 H 0556359834) CO2 TOTAL (test code = 25 mmol/L 23-31 9614961706) AGAP (test code = 2-16 9024951007) BUN (test code = 15 mg/dL 7-23 9877894461) GLUCOSE (test code = 218 mg/dL 70-110 H 4446004354) CREATININE (test code = 0.40 mg/dL 0.5-1.04 L 9628901874) TOTAL BILI (test code = 2.0 mg/dL 0.1-1.1 H 6708281186) CALCIUM (test code = 8.5 mg/dL 8.6-10.6 L 7966235857) T PROTEIN (test code = 6.2 g/dL 6.3-8.2 L 9649888434) ALBUMIN (test code = 3.1 g/dL 3.5-5 L 9193520409) ALK PHOS (test code = 99 U/L 34-122 5352554880) ALTv (test code = 42 U/L 5-35 H 1742-6) AST(SGOT) (test code = 49 U/L 13-40 H 3810733790) eGFR Calculation mL/min/1.73m2 (Non-) (test code = 5311560229) eGFR Calculation mL/min/1.73m2 () (test code = 4842182984) SNOW (test code = SNOW) Association of [...] tests). Lab Interpretation Abnormal (test code = 99576-9) [facility]MAGNESIUM2020-05-01 12:35:00 Test Item Value Reference Range Interpretation Comments MAGNESIUM (test code = 3774718082) 1.6 mg/dL 1.7-2.4 L Lab Interpretation (test code = Abnormal 81882-3) [facility] HospitalPHOSPHORUS2020-05-01 12:35:00 Test Item Value Reference Range Interpretation Comments PHOSPHORUS (test code = 1479592913) 3.6 mg/dL 2.5-5 Lab Interpretation (test code = Normal 06293-3) [facility] HospitalCREATINE [id number] 12:35:00 Test Item Value Reference Range Interpretation Comments CK (test code = 9478899955) 123 U/L 33-194 Lab Interpretation (test code = Normal 43333-1) [facility] HospitalLIPASE2020-05-01 12:35:00 Test Item Value Reference Range Interpretation Comments LIPASE (test code = 8640467777) 141 U/L 0-220 Lab Interpretation (test code = Normal 19593-1) [facility] HospitalAMYLASE2020-05-01 12:34:00 Test Item Value Reference Range Interpretation Comments LIN (test code = 7660462376) 73 U/L 35-110 Lab Interpretation (test code = Normal 12414-4) [facility] HospitalPROTHROMBIN TIME / [id number] 12:07:00 Test Item Value Reference Range Interpretation Comments PROTIME PATIENT (test See_Comment H [Auto mated message] code = 5964-2) The system [employer] generated this result transmitted ref erence range: 12.0 - 1 4.7 Seconds. The reference range was not used to int erpret this result as normal/abnormal . INR (test code = 6301-6) Nor mal INR <1.1; Warfarin Therap eutic range 2.0 to 3. 0 or 2.5 to 3.5, dep ending upon the indica tions. Lab Interpretation (test Abnormal code = 81552-8) [facility] HospitalCORONAVIRUS COVID-19 [id number] 10:18:00 Test Item Value Reference Range Interpretation Comments SARS-CoV-2 (test code = Not Detected Not Detected 67972-8) SNOW (test code = SNOW) ID NOW COVID-19 Assay is an isothermal nucleic acid amplification test intended for the qualitative detection of nucleic acid from SARS-CoV-2 viral RNA in nasopharyngeal (CREDENTIALER) specimens. It is used under Emergency Use [...] indicated. Lab Interpretation Normal (test code = 42660-4) [facility] HospitalRAD, CHEST, 1 VIEW, NON [id number] 07:50:00Reason for exam:->SOBShould this be performed at the bedside?->Yes FINAL REPORT CLINICAL HISTORY: SOB TECHNIQUE: 1 view of the chest. COMPARISON: None IMPRESSION: There is pulmonary vascular congestion with prominent lung markings bilaterally. Subpulmonic pleural effusions cannot be excluded. The cardiomediastinal silhouette is magnified by technique. Signed: Franky Hoyt MDReport Verified Date/Time: 10/03/2018 07:50:47 Reading Location: [facility] Radiology Reading Room [id number] 07:37:00 Test Item Value Reference Range Interpretation Comments MAGNESIUM (BEAKER) (test code = 1.6 mg/dL 1.6-2.6 627) BASIC METABOLIC [id number] 07:37:00 Test Item Value Reference Range Interpretation [...] DIALYSIS PATIEN TS. Specimen slightly ictericHEPATIC FUNCTION [id number] 07:37:00 Test Item Value Reference Range Interpretation [...] 35 U/L 6-55 347) Specimen slightly ictericPROTHROMBIN TIME/[id number] 06:25:00 Test Item Value Reference Range Interpretation [...] mechanical heart valves.CBC W/PLT COUNT & AUTO [id number] 06:16:00 Test Item Value Reference Range Interpretation [...] = 3438) Received comment: User comments: Slide comments:[id number] 05:58:00 Test Item Value Reference Range Interpretation Comments MAGNESIUM (BEAKER) (test code = 1.6 mg/dL 1.6-2.6 627) BASIC METABOLIC [id number] 05:58:00 Test Item Value Reference Range Interpretation [...] DIALYSIS PATIEN TS. Specimen slightly ictericHEPATIC FUNCTION [id number] 05:58:00 Test Item Value Reference Range Interpretation [...] 39 U/L 6-55 347) Specimen slightly ictericPROTHROMBIN TIME/[id number] 05:26:00 Test Item Value Reference Range Interpretation [...] mechanical heart valves.CBC W/PLT COUNT & AUTO [id number] 05:20:00 Test Item Value Reference Range Interpretation [...] WBC 0-0 (test code = 413) VITAMIN [id number] 06:57:00 Test Item Value Reference Range Interpretation Comments VITAMIN B12 (BEAKER) (test code = 178 pg/mL 213-816 L 774) [id number] 06:57:00 Test Item Value Reference Range Interpretation Comments FERRITIN (BEAKER) (test code = 361) 21 ng/mL 5-275 FOLATE, [id number] 06:57:00 Test Item Value Reference Range Interpretation [...] 28 % 20-55 (test code = 2590) [id number] 05:59:00 Test Item Value Reference Range Interpretation Comments MAGNESIUM (BEAKER) (test code = 1.7 mg/dL 1.6-2.6 627) BASIC METABOLIC [id number] 05:59:00 Test Item Value Reference Range Interpretation [...] FOR DIALYSIS PATIEN TS. Specimen slightly ictericLIPID [id number] 05:59:00 Test Item Value Reference Range Interpretation [...] Very High >=190 Specimen slightly ictericHEPATIC FUNCTION [id number] 05:59:00 Test Item Value Reference Range Interpretation [...] = 41 U/L 6-55 347) Specimen slightly [id number] 05:59:00 Test Item Value Reference Range Interpretation Comments LIPASE (BEAKER) (test code = 749) 35 U/L 8-78 Specimen slightly ictericPROTHROMBIN [id number] 05:58:00 Test Item Value Reference Range Interpretation [...] mechanical heart valves.CBC W/PLT COUNT & AUTO [id number] 05:37:00 Test Item Value Reference Range Interpretation [...] EOSINOPHILS ABSOLUTE COUNT 0.12 K/ L 0.04-0.36 ([facility]) (test code = 416) BASOPHILS ABSOLUTE COUNT ([facility]) 0.02 K/ L 0.01-0.08 (test code = 417) IMMATURE GRANULOCYTES-RELATIVE 0 % 0-1 PERCENT ([facility]) (test code = 2801) POCT-HEMOGLOBIN [id number] 06:12:00 Test Item Value Reference Range Interpretation Comments POC-HEMOGLOBIN METER 8.6 g/dL 12.0-15.0 L TESTED AT [facility] 67[address] ([facility]) (test code = [place] [address] 1539)"
[2021-12-31] MEDS ORDERED: PROMETHAZINE INJ 25 MG/ML AMP ONE (04:59)
[2021-12-31] MEDS ORDERED: FENTANYL CITR 100 MCG/2 ML ONE (05:01)
[2021-12-31] MEDS ORDERED: FAMOTIDINE 20 MG/2 ML VIAL IV ONE (05:02)
[2021-12-31 05:37] LABS: Absolute Lymphocytes (CBC) 0.4 K/uL (0.7-4.9); Hematocrit 29.4 % (36.0-45.0); MCV 84.6 fL (80-100); MPV 8.1 fL (7.6-11.3); RBC Red Blood Cell Count 3.47 M/uL (3.86-4.86)
[2021-12-31 05:52] LABS: Albumin 3.5 g/dL (3.4-5.0); Bilirubin Total 1.4 mg/dL (0.2-1.0); Potassium 3.7 mmol/L (3.5-5.1); Protein, Total 6.9 g/dL (6.4-8.2)
[2021-12-31 07:30] LABS: Platelet Estimate DECR; White Blood Cell Scan OK (OK)
[2021-12-31 07:31] LABS: Anisocytosis 1+; Blood Morphology Comment NOTED (NOT SEEN); Hypochromasia 1+; Ovalocytes 1+; Poikilocytosis 1+
--- NOTE | 2021-12-31 08:17 | RAD REPORT ---
EXAM DESCRIPTION: RAD - Chest Pa And Lat (2 Views) - 12/31/2021 7:13 am CLINICAL HISTORY: COUGH Chest pain. COMPARISON: Chest Single View dated 09/24/2021; Chest Single View dated 07/05/2021; Chest Single View dated 01/01/2021; Chest Single View dated 09/27/2020 FINDINGS: Interstitial markings are mildly prominent, likely chronic. The heart is upper limit of no rmal in size. No displaced fractures.
--- NOTE | 2021-12-31 08:19 | ER ---
Nurse's Notes [facility] Name: Zenaida Goss Age: 61 yrs Sex: Female : 1960 Arrival Date: 12/31/2021 Time: 04:06 Bed 7 Private MD: Diagnosis: Abdominal pain, Generalized;Other cirrhosis of liver-ANAYA Presentation: 12/31 04:34 Chief complaint: Patient states: she was recently in the hospital and diagnosed with an bb ulcer but she is now having worsening abdominal pain and vomited x 1 this morning. Coronavirus screen: At this time, the client does not indicate any symptoms associated with coronavirus-19. Ebola Screen: No symptoms or risks identified at this time. Initial Sepsis Screen: Does the patient meet any 2 criteria? No. Patient's initial sepsis screen is negative. Does the patient have a suspected source of infection? Yes: Acute abdominal pain. Risk Assessment: Do you want to hurt yourself or someone else? Patient reports no desire to harm self or others. Onset of symptoms was December 30, 2021. 04:34 Method Of Arrival: Ambulatory bb 04:34 Acuity: TANK 3 bb Historical: - Allergies: 04:36 Demerol; bb 04:36 Morphine (Anaphylaxis); bb 04:36 Zofran; bb 04:36 Dilaudid; bb - PMHx: 04:36 Anemia; breast cancer; Cirrhosis; ESOPHAGEAL VARACIES; fatty liver; Heart Murmur; bb Pancreatitis; polyp; - Immunization history:: Moderna x 3. - Social history:: Smoking status: Patient denies any tobacco usage or history of. Screenin:57 Abuse screen: Denies threats or abuse. Denies injuries from another. Nutritional tw5 screening: No deficits noted. Tuberculosis screening: No symptoms or risk factors identified. Fall Risk IV access (20 points). Assessment: 04:57 General: Reports "I had seven polyps removed and they turned into an ulcer, what is new tw5 is the body aches along with my stomach pain.". Pain: Complains of pain in epigastric area Pain currently is 9 out of 10 on a pain scale. GI: Bowel sounds present X 4 quads. Abdomen is tender to palpation in epigastric area Reports nausea, vomiting. Vital Signs: 04:34 BP 118 / 57; Pulse 78; Resp 20 S; Temp 97.9(O); Pulse Ox 99% on R/A; Weight 113.4 kg bb (R); Height 5 ft. 4 in. (162.56 cm) (R); Pain 9/10; 04:57 BP 118 / 57; Pulse 77; Resp 18; Pulse Ox 99% on R/A; tw5 07:27 BP 118 / 91; Pulse 62; Resp 18; Pulse Ox 98% ; Pain 8/10; mb8 08:18 BP 126 / 47; Pulse 68; Resp 16; Pulse Ox 98% ; Pain 8/10; mb8 04:34 Body Mass Index 42.91 (113.40 kg, 162.56 cm) bb ED Course: 04:06 Patient arrived in ED. bp1 04:10 Grant Baldwin DO is Attending Physician. ms3 04:36 Triage completed. bb 04:36 Arm band placed on Patient placed in an exam room, on a stretcher, on pulse oximetry. bb 04:43 Kenna Kirkland is Primary Nurse. tw5 04:57 Patient has correct armband on for positive identification. tw5 05:20 CBC with Diff Sent. tw5 05:20 CMP Sent. tw5 05:20 Lipase Sent. tw5 05:20 Initial lab(s) drawn, by co, sent to lab. Inserted saline lock: 24 gauge in left hand, tw5 using aseptic technique. Blood collected. Missed attempt(s): 20 gauge in left forearm. Bleeding controlled, band aid applied, catheter tip intact. 05:41 Notified ED physician of a critical lab result(s). 1.8 wb plt 42. bb 07:12 Attending Physician role handed off by Grant Baldwin DO vicente 07:12 Homero Terrell MD is Attending Physician. vicente 07:15 Chest Pa And Lat (2 Views) XRAY In Process Unspecified. EDMS 07:19 SARS-COV-2 RT PCR (Document "Date of Onset" if Symptomatic) Sent. mb8 07:19 Flu Sent. mb8 08:18 No provider procedures requiring assistance completed. mb8 09:19 IV discontinued, intact, bleeding controlled, No redness/swelling at site. Pressure mb8 dressing applied. Administered Medications: 05:01 Drug: Phenergan (promethazine) 12.5 mg Route: IM; Site: left deltoid; tw5 08:19 Follow up: Response: No adverse reaction mb8 05:20 Drug: Pepcid (famotidine) 20 mg Route: IVP; Site: left hand; tw5 08:20 Follow up: Response: No adverse reaction mb8 05:20 Drug: fentaNYL (PF) 50 mcg Route: IVP; Site: left hand; tw5 08:19 Follow up: Response: No adverse reaction mb8 Medication: 04:57 VIS not applicable for this client. Outcome: 08:18 Discharge ordered by . vicente 09:19 Discharged to home ambulatory. mb8 09:19 Condition: stable 09:19 Discharge instructions given to patient, Instructed on discharge instructions, follow up and referral plans. no drinking with medication, no driving heavy equipment, medication usage, Demonstrated understanding of instructions, follow-up care, medications, Prescriptions given X 4. 09:19 Patient left the ED. mb8 Signatures: Dispatcher [employer] EDMS Homero Terrell MD MD cha Ballard, Brenda, RN RN Grant Deluca DO DO ms3 Sonja Bourgeois Tiffany tw5 Handy Correia, RN RN mb8 Corrections: (The following items were deleted from the chart) 04:37 04:36 PMHx: r breast cancer; johnna oropeza 04:37 04:36 PMHx: varices; johnna oropeza
--- NOTE | 2021-12-31 08:20 | EDPHYS ---
Physician Documentation [facility] Name: Zenaida Goss Age: 61 yrs Sex: Female : 1960 Arrival Date: 12/31/2021 Time: 04:06 Bed 7 Private MD: KARI Physician Homero Terrell HPI: 12/31 05:05 This 61 yrs old Female presents to ER via Ambulatory with complaints of ms3 Abdominal Pain. 05:05 61-year-old female with past medical history of anemia, breast cancer, liver cirrhosis, ms3 esophageal varices presents for upper abdominal pain that she rates a 9/10 described as being tight for 1day. Patient states she has hydrocodone at home that she took it did not help. Patient denies alleviating or inciting factors. Patient endorses nausea and vomiting x2. Patient denies hematemesis, diarrhea, fever, black stools, bloody stools.. Historical: - Allergies: 04:36 Demerol; bb 04:36 Morphine (Anaphylaxis); bb 04:36 Zofran; bb 04:36 Dilaudid; bb - PMHx: 04:36 Anemia; breast cancer; Cirrhosis; ESOPHAGEAL VARACIES; fatty liver; Heart Murmur; bb Pancreatitis; polyp; - Immunization history:: Moderna x 3. - Social history:: Smoking status: Patient denies any tobacco usage or history of. ROS: 05:12 Constitutional: Negative for fever, and chills. Neck: Negative for injury, pain, and ms3 swelling, Cardiovascular: Negative for chest pain, and palpitations. Respiratory: Negative for shortness of breath, cough, wheezing, and pleuritic chest pain. 05:12 Back: Negative for injury and pain, MS/Extremity: Negative for injury and deformity, Skin: Negative for injury, rash, and discoloration, Psych: Negative for depression, anxiety, suicide ideation, homicidal ideation, and hallucinations. 05:12 Abdomen/GI: Positive for abdominal pain, nausea and vomiting. 05:12 All other systems are negative. Exam: 05:12 Constitutional: This is a well developed, well nourished patient who is awake, alert, ms3 and in no acute distress. Head/Face: Normocephalic, atraumatic. Neck: Trachea midline, no cervical lymphadenopathy. Supple, full range of motion without nuchal rigidity, or vertebral point tenderness. No Meningismus. Chest/axilla: Normal chest wall appearance and motion. Nontender with no deformity. Cardiovascular: Regular rate and rhythm with a normal S1 and S2. No gallops, murmurs, or rubs. Normal PMI, no JVD. No pulse deficits. Respiratory: Lungs have equal breath sounds bilaterally, clear to auscultation and percussion. No rales, rhonchi or wheezes noted. No increased work of breathing, no retractions or nasal flaring. 05:12 Back: No spinal tenderness. No costovertebral tenderness. Full range of motion. Skin: Warm, dry with normal turgor. Normal color with no rashes, no lesions, and no evidence of cellulitis. MS/ Extremity: Pulses equal, no cyanosis. Neurovascular intact. Full, normal range of motion. Psych: Awake, alert, with orientation to person, place and time. Behavior, mood, and affect are within normal limits. 05:12 Abdomen/GI: Inspection: abdomen appears normal, Bowel sounds: normal, Palpation: mild abdominal tenderness, in the epigastric area. Vital Signs: 04:34 BP 118 / 57; Pulse 78; Resp 20 S; Temp 97.9(O); Pulse Ox 99% on R/A; Weight 113.4 kg bb (R); Height 5 ft. 4 in. (162.56 cm) (R); Pain 9/10; 04:57 BP 118 / 57; Pulse 77; Resp 18; Pulse Ox 99% on R/A; tw5 07:27 BP 118 / 91; Pulse 62; Resp 18; Pulse Ox 98% ; Pain 8/10; mb8 08:18 BP 126 / 47; Pulse 68; Resp 16; Pulse Ox 98% ; Pain 8/10; mb8 04:34 Body Mass Index 42.91 (113.40 kg, 162.56 cm) bb MDM: 04:45 Patient medically screened. ms3 05:12 Differential diagnosis: gastritis, non-specific abd pain, pancreatitis. ms3 07:29 Transition of care: After a detail discussion of the patient's case, care is ms3 transferred to Homero Terrell MD. 08:17 Data reviewed: vital signs, nurses notes, lab test result(s), radiologic studies. Data vicente interpreted: nuclear monitoring technician: rate is 62 beats/min, rhythm is regular, Pulse oximetry: on room air is 98 %. Counseling: I had a detailed discussion with the patient and/or guardian regarding: the historical points, exam findings, and any diagnostic results supporting the discharge/admit diagnosis, lab results, radiology results, the need for outpatient follow up, for definitive care, 12/31 04:46 Order name: CBC with Diff ms3 12/31 04:46 Order name: CMP; Complete Time: 05:54 ms3 12/31 04:46 Order name: Lipase; Complete Time: 05:54 ms3 12/31 05:44 Order name: CBC Smear Scan EDMS 12/31 06:56 Order name: Flu ms3 12/31 04:46 Order name: IV Saline Lock; Complete Time: 05:20 ms3 12/31 04:46 Order name: Labs collected and sent; Complete Time: 05:20 ms3 12/31 06:56 Order name: Chest Pa And Lat (2 Views) XRAY ms3 12/31 07:01 Order name: SARS-COV-2 RT PCR (Document "Date of Onset" if Symptomatic) tw5 12/31 08:30 Order name: Urine Dipstick-Ancillary EDMS 12/31 04:46 Order name: Urine Dipstick-Ancillary (obtain specimen); Complete Time: 08:59 ms3 Administered Medications: 05:01 Drug: Phenergan (promethazine) 12.5 mg Route: IM; Site: left deltoid; tw5 08:19 Follow up: Response: No adverse reaction mb8 05:20 Drug: Pepcid (famotidine) 20 mg Route: IVP; Site: left hand; tw5 08:20 Follow up: Response: No adverse reaction mb8 05:20 Drug: fentaNYL (PF) 50 mcg Route: IVP; Site: left hand; tw5 08:19 Follow up: Response: No adverse reaction mb8 Disposition Summary: 12/31/21 08:18 Discharge Ordered Location: Home vicente Problem: new vicente Symptoms: have improved vicente Condition: Stable vicente Diagnosis - Abdominal pain, Generalized vicente - Other cirrhosis of liver - ANAYA vicente Followup: vicente - With: Private Physician - When: 2 - 3 days - Reason: Recheck today's complaints, Continuance of care, Re-evaluation by your physician Discharge Instructions: - Discharge Summary Sheet vicente - Abdominal Pain, Adult vicente - Cirrhosis vicente - Esophageal Varices vicente - Abdominal Pain, Adult, [id number] Forms: - Medication Reconciliation Form vicente - Thank You Letter vicente - Antibiotic Education vicente - Prescription Opioid Use [facility] Prescriptions: - Carafate 1 gram Oral Tablet - take 1 tablet by ORAL route 4 times per day take on an empty stomach, beginning vicente on waking and last dose at bedtime; 100 tablet; Refills: 0, Product Selection Permitted - Protonix 40 mg Oral Tablet - take 1 tablet by ORAL route once daily; 30 tablet; Refills: 0, Product vicente Selection Permitted - dicyclomine 20 mg Oral Tablet - take 1 tablet by ORAL route 4 times per day; 28 tablet; Refills: 0, Product vicente Selection Permitted - promethazine 25 mg Oral Tablet - take 1 tablet by ORAL route every 6 hours As needed; 20 tablet; Refills: 0, vicente Product Selection Permitted Signatures: Dispatcher [employer] Homero Mauro MD MD cha Ballard, Brenda, RN RN bb Sims, Marcus, DO DO ms3 Kenna Kirkland 5 Handy Correia RN mb8 Corrections: (The following items were deleted from the chart) 04:37 04:36 PMHx: r breast cancer; johnna oropeza 04:37 04:36 PMHx: varices; johnna oropeza 05:13 05:05 61-year-old female with past medical history of anemia, breast cancer, liver ms3 cirrhosis, esophageal varices presents for upper abdominal pain that she rates a 9/10 described as being tight. Patient states she has hydrocodone at home that she took it did not help. Patient denies alleviating or inciting factors. Patient endorses nausea and vomiting x2. Patient denies hematemesis, diarrhea, fever, black stools, bloody stools.. ms3 05:14 05:05 61-year-old female with past medical history of anemia, breast cancer, liver ms3 cirrhosis, esophageal varices presents for upper abdominal pain that she rates a 9/10 described as being tight for 4 days. Patient states she has hydrocodone at home that she took it did not help. Patient denies alleviating or inciting factors. Patient endorses nausea and vomiting x2. Patient denies hematemesis, diarrhea, fever, black stools, bloody stools.. ms3
[2021-12-31 08:30] LABS: Urine Blood Negative (Negative); Urine Glucose Negative (Negative); Urine Protein Negative (Negative); Urine Specific Gravity 1.025 (1.005-1.030); Urine pH 6.5 (5.0-7.0)
[2022-01-02 01:43] VITALS: BP 118/57; TEMP 97.9; O2SAT 99
== END 2021-12-31 09:19 | disposition home or self-care (01) ==
LOC: ER 04:01
DX: R10.84 Generalized abdominal pain (principal); K75.81 Nonalcoholic steatohepatitis (NASH); Z20.822 Contact with and (suspected) exposure to COVID-19; Z88.5 Allergy status to narcotic agent; Z88.8 Allergy status to other drugs, medicaments and biological substances
CPT/HCPCS: 85025; 36415; 81003; 83690; 80053; 87804 ×2; 71046; 96375; 96372; 96374; 99284; U0003; J2550; J3010

== ENCOUNTER 2022-03-15 14:21 | Emergency (ER) | payer OTHER ==
--- OUTSIDE RECORDS SUMMARY | 2022-03-15 14:33 | XMS REPORT | Continuity of Care Document ---
:1960 Author Organization [facility] t Address [address] [place] [address] Care Team Providers Name Role Phone Madhu Miranda Primary Care Physician Unavailable Madhu Miranda Attending Clinician Unavailable Annalise Souza Attending Clinician Unavailable Stevo Hoskins DO Attending Clinician Jeremy Sandoval MD Attending Clinician FLORIAN AYERS Attending Clinician Unavailable Florian Ayers DO Attending Clinician Charline HENSLEY, [facility] Hodan Attending Clinician Bebeto Ward MD Attending Clinician Nakia Cruz MD Attending Clinician Aziza Cordero MD Attending Clinician Bebeto Heck MD Attending Clinician Verónica HENSLEY, Carolin Diaz Attending Clinician Amandeep HENSLEY, Vandana Mae Attending Clinician [phone] Thomas HENSLEY, Elias Attending Clinician Karlo HENSLEY, Handy Blanco Attending Clinician [phone] Nafisa HENSLEY, Jefferson Lisa Attending Clinician Jose HENSLEY, Willian Snowden Attending Clinician Ronnie HENSLEY, Mahnaz Attending Clinician Feng Burgos Attending Clinician Mayda Aleman MD, Sharita Attending Clinician [phone] Maite HENSLEY, Anand Baron Attending Clinician Sukhdev SOTO Attending Clinician Unavailable Sukhdev Fajardo Attending Clinician Doctor Unassigned, [place] Attending Clinician Unavailable [facility], Orthopedic Attending Clinician Unavailabl e AZALEA GREEN Attending Clinician Unavailable Azalea Mancilla Attending Clinician Frances Cruz RN Attending Clinician Unavailable LEXIE SHEFFIELD Attending Clinician Unavailable Only, Ang Db Test Attending Clinician Unavailable Unknown, Attending Attending Clinician Unavailable GARTH CARLOS Attending Clinician Unavailable Madiha Taylor RN Attending Clinician Rene Evans MD Attending Clinician Shaina Pinto MD Attending Clinician MD NAKIA CRUZ Attending Clinician Unavailable TERRI GERMAN Attending Clinician Unavailable MD SHARITA SURESH Attending Clinician Unavailable MD JEREMY SANDOVAL Attending Clinician Unavailable Lab, Adc Fam Pob I Attending Clinician Unavailable Kamaljit GARCIA, Dulce A Attending Clinician Nasrin REYES, Jovanny Souza Attending Clinician Unavailable SHAINA PINTO Attending Clinician Unavailable AVI DAVEY Attending Clinician Unavailable DRE MAYER Attending Clinician Unavailable JEREMY SANDOVAL Admitting Clinician Unavailable FLORIAN AYERS Admitting Clinician Unavailable BEBETO WARD Admitting Clinician Unavailable MD NAKIA CRUZ Admitting Clinician Unavailable DO STEVO HOSKINS Admitting Clinician Unavailable Sukhdev SOTO Admitting Clinician Unavailable AZALEA GREEN Admitting Clinician Unavailable SHARITA SURESH Admitting Clinician Unavailable GARTH CARLOS Admitting Clinician Unavailable Shaina Pinto MD Admitting Clinician MD SHARITA SURESH Admitting Clinician Unavailable MD BEBETO WARD Admitting Clinician Unavailable MD JEREMY SANDOVAL Admitting Clinician Unavailable MD NAKIA CRUZ Admitting Clinician Unavailable SHAINA PINTO Admitting Clinician Unavailable AVI DAVEY Admitting Clinician Unavailable DRE MAYER Admitting Clinician Unavailable Payers Payer Name Policy Type Policy Number Effective Date Expiration Date [facility] [id number] 2019 CHOICE 00:00:00 Problems Condition Condition Condition Status Onset Resolution Last Treating Co mments Source Name Details Category Date Date Treatment Clinician Date Abdominal Abdominal Disease Active 2021-04 [facility] pain, pain, 117 st unspecifie unspecifie 00:00: Ho spita d d 00 l abdominal abdominal location location Pancreatic Pancreatic Disease Active 2021-04 Overview : [facility] cyst cyst [address] 00:00: g of this Hospita 00 note l might be different from the original. Added automatic ally from request for surgery [id number] Gastritis Gastritis Disease Active [facility] without without 24 st bleeding, bleeding, 00:00: [facility] unspecifie unspecifie 00 l d d chronicity chronicity , , unspecifie unspecifie d d gastritis gastritis type type Intractabl Intractabl Disease Active M ethodi e e 9-03 st abdominal abdominal 00:00: [facility] pain pain 00 l Acute Acute Disease Active [facility] upper GI upper GI 8-18 st bleed bleed 00:00: Hospita 00 l Anemia Anemia Disease Active Overview: Method i 8-[address] 00:00: g of this Hospita 00 note l might be different from the original. Added automatic ally from request for surgery [id number] Pancolitis Pancolitis Disease Active U nivers 6-21 ity of 00:00: [place] 00 [facility] Arrhythmia Arrhythmia Disease Active U nivers 6-21 ity of 00:00: [place] [facility] Ventricula Ventricula Disease Active U nivers r r 6 ity of tachycardi tachycardi [place] [facility] Other Other Disease Active [facility] cirrhosis cirrhosis 09-29 ity of of liver of liver 00:00: [place] [facility] ANAYA ANAYA Disease Active Univers (nonalcoho (nonalcoho 09-29 it y of lic lic 00:00: [place] steatohepa steatohepa 00 Me dical titis) titis) Branch Hypokalemi Hypokalemi Disease Active U nivers a a 6- ity of 00:00: [place] [facility] Acute Acute Disease Active Univers colitis colitis 09-29 ity of 00:00: [place] 00 [facility] Abdominal Abdominal Disease Active [...] 2019-04 Metho di of liver of liver 2 st 00:00: Hospita 00 l Acute Acute Disease Active 2019-04 [facility] pancreatit pancreatit 2 is without is without 00:00: Ho spita infection infection 00 l or or necrosis necrosis SBO (small SBO (small Disease Active U nivers bowel bowel 5- ity of obstructio obstructio [place] [facility] Increased Increased Disease Active [facility] [...] Morbid Morbid Disease Active Univers obesity obesity - [place] of with body with body [place] index mass index 00 Me dical of 50 or of 50 or Branch higher higher Nausea & Nausea & Disease Active Unive rs vomiting vomiting 08-07 ity of 00:00: [place] 00 [facility] Primary Primary Diagnosis Active 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 of itis of - [facility] right knee right knee [facility] Primary Primary Diagnosis Active 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 of itis of - [facility] left knee left knee [facility] Allergies, Adverse Reactions, Alerts Allergy Allergy Status Severity Reaction(s) Onset Inactive Treating Comm ents Source Name Type Date Date Clinician Adhesive Propensi Active Rash Method i Tape-Hillary ty to 01-05 icones adverse 00:00: Hospita reaction 00 l s to drug Hydromor Propensi Active Rash Univer s phone [...] adverse 00:00: Medical reaction 00 Center s Latex Propensi Active Rash 2016-04 Methodi ty to 2-18 st adverse 00:00: Hospita reaction 00 l s to drug MORPHINE DRUG Active High Anaphylaxis Uni vers INGREDI 06-30 ity of 00:00: [place] 00 Medical Branch Morphine Propensi Active Shortness Of Throat [facility] ty to Breath, 06-30 closes, [facility] adverse Swelling 00:00: tongue Medical reaction 00 swelling Center s MORPHINE Adverse Active Info Not Commo n Reaction Available Spiri t - [facility] Social History Social Habit Start Date Stop Date Quantity Comments Source History [facility] Zoroastrianism Ho spital Alcohol Std Drinks History [facility] Zoroastrianism Ho spital Alcohol Binge Exposure to 2022-02-05 2022-02-15 Not sure University SARS-CoV-2 00:00:00 13:41:00 [facility] (event) [place] Alcohol intake 2022-02-05 2022-02-05 Lifetime [facility] 00:00:00 00:00:00 non-drinker (finding) History [facility] 2020-03-19 2020-03-19 1 Zoroastrianism spital Alcohol Frequency 00:00:00 00:00:00 Tobacco use and 2016-06-30 2016-06-[address] [facility] kes exposure 00:00:00 00:00:00 Medical Center Sex Assigned At [birth year] [facility] 00:00:00 00:00:00 Smoking Status Start Date Stop Date Source Never smoked tobacco Zoroastrianism H ospital Medications Ordered Filled Start Stop Current Ordering Indication Dosage Frequency Signature Comments Components Source Medication Medication Date Date Medication? Clinician (SIG) Name Name psyllium 2021-04- Yes 1{packe Q48H Take 1 Met hodi obiek 05-01 t} packet by st sugar-free 00:00: 05:59 mouth Hospi ta (METAMUCIL) 00 :00 every l 6 gram other day packet for 30 days. polyethylen 2021-04 Yes 17g QD Take 17 g M ethodi e glycol 1-[address] (Miralax) 18:45: daily. Hospit a 17 gram 03 l packet riFAXimin 2021-04 Yes 550mg Q.5D Take 1 Metho di (XIFAXAN) 1-[address] 550 mg 18:47: (550 mg Hospita tablet 48 total) by l mouth 2 (two) times a day. methocarbam 2021-04 Yes 500mg Q.25D Take 1 Me thodi oL 1-[address] (ROBAXIN) 18:47: (500 mg Hospi ta 500 MG 48 total) by l tablet mouth 4 (four) times a day. lipase-prot 2021-04 Yes 1{capsu Q.10480588 Take 1 Methodi ease-amylas 1-19 le} [id number] capsule by st e (CREON) 18:47: 3D mouth 3 Hospi ta 36,000-114, 48 (three) l 000- times a 180,000 day. unit capsule,del ayed release(DR/ EC) ketorolac 2021-04- Yes 15mg 15 mg, Unive rs (TORADOL) 04-18 Slow IV ity of injection 00:00: 23:59 Push, Q6H, [place] 15 mg 00 :00 4 doses, Medical First dose Branch on Tue02/15/22 at 1800, Last dose on Tue02/16/22 at 1200, Routine iopamidol 2021-04- No [id number] 74mL 74 mL, U nivers (ISOVUE 04-17 Intravenou ity o f 370-500 mL) 21:30: 21:30 s, ONCE, 1 [place] injection 00 :00 dose, On Medica l 74 mL Tue Branch 02/15/22 at 1530, Routine ondansetron 2021-04- No 4mg 4 mg, Slow Univers (ZOFRAN 04-17 IV Push, ity of (PF)) 21:00: 20:19 ONCE, 1 [place] injection 4 00 :00 dose, On Medi molly mg Tue02/15/22 at 1500, Routine ondansetron 2021-04 Yes [id number] 4mg Take 1 Univers 4 mg 04-17 tablet by ity of disintegrat 00:00: mouth [place] ing tablet 00 every 8 Medica l (eight) Branch hours as needed for Nausea and Vomiting (N/V). dicyclomine 2021-04 Yes [id number] 20mg Take 1 Univers 20 mg 1-07 tablet by ity of tablet 00:00: mouth 4 [place] 00 (four) Medical times Branch daily. loperamide 2021-04 Yes [id number] 2mg Take 1 U nivers 2 mg 1-07 capsule by ity of capsule 00:00: mouth [place] 00 every 4 Medical (four) Branch hours as needed for Diarrhea. Not to exceed 16mg daily. furosemide 2021-04 No 40mg Q.5D Take 1 Meth dimitri (Lasix) 40 0-07 03- tablet (40 st mg tablet 00:00: 05:59 mg total) Ho spita 00 :00 by mouth 2 l (two) times a day for 30 days. lactulose 2021-04 No 20g Q.25D Take 30 mL Methodi 20 gram/30 - ([address] mL solution 00:00: 05:59 total) by Hospita 00 :00 mouth 4 l (four) times a day for 30 days. pantoprazol 2021-04 No 40mg QD Take 1 Met hodi e 03-07 tablet (40 st (PROTONIX) 00:00: 05:59 mg total) H ospita 40 MG EC 00 :00 by mouth l tablet daily for 30 days. spironolact 2021-04 No 50mg Q.5D Take 1 Met hodi one -07 03- tablet (50 st (ALDACTONE) 00:00: 05:59 mg total) Hospita 50 MG 00 :00 by mouth 2 l tablet (two) times a day for 30 days. sucralfate 2021-04- No 1g Q.25D Take 10 mL [facility] (CARAFATE) 003-07 ([address] 100 mg/mL 00:00: 05:59 total) by Ho spita suspension 00 :00 mouth 4 l (four) times a day before meals and nightly for 30 days. zinc 2021-04- No 1{capsu QD Take 1 Methodi sulfate 0-07 03- le} capsule by st (ZINCATE) 00:00: 05:59 mouth Hospit a 50 mg zinc 00 :00 daily for l (220 mg) 30 days. capsule HYDROcodone 2021-04- No [id number] 1{tbl} Q4H Take 1 Methodi -acetaminop 0-27 11-[address] hen (NORCO) 00:00: 05:59 mouth [facility] 10-325 mg 00 :00 every 4 l per tablet (four) hours as needed for severe pain for up to 10 days .acute pain. Max Daily Amount: 6 tablets famotidine 2021-04 Yes 20mg Q.5D Take 1 Metho di (PEPCID) 20 0-12 tablet (20 st MG tablet 00:00: mg total) Hos alvaro 00 by mouth 2 l (two) times a day. riFAXimin Yes 550mg Q.5D Take 1 Metho di (XIFAXAN) 9-[address] 550 mg 19:11: (550 mg Hospita tablet 33 total) by l mouth 2 (two) times a day. riFAXimin Yes 550mg Q.5D Take 1 Metho di (XIFAXAN) 9-[address] 550 mg 19:11: (550 mg Hospita tablet 33 total) by l mouth 2 (two) times a day. polyethylen 2021- Yes 17g QD Take 17 g Methodi e glycol 9-27 10-[address] (MIRALAX) 00:00: 04:59 daily for Ho spita 17 gram 00 :00 30 days. l packet polyethylen 2021- Yes 17g QD Take 17 g Methodi e glycol 9-27 10-[address] (MIRALAX) 00:00: 04:59 daily for Ho spita 17 gram 00 :00 30 days. l packet polyethylen 2021- No 17g QD Take 17 g Methodi e glycol 9-27 10-[address] (MIRALAX) 00:00: 04:59 daily for Ho spita 17 gram 00 :00 30 days. l packet lactulose 2021- Yes 20g Q.25D Take 30 mL Methodi 20 gram/30 9-26 10-27 ([address] mL solution 00:00: 04:59 total) by Hospita 00 :00 mouth 4 l (four) times a day for 30 days. furosemide 2021- Yes 40mg Q.5D Take 1 Meth dimitri (Lasix) 40 - 10-27 tablet (40 st mg tablet 00:00: 04:59 mg total) Ho spita 00 :00 by mouth 2 l (two) times a day for 30 days. pantoprazol 2021- Yes 40mg QD Take 1 Met hodi e - 10-27 tablet (40 st (PROTONIX) 00:00: 04:59 mg total) H ospita 40 MG EC 00 :00 by mouth l tablet daily for 30 days. spironolact 2021- Yes 50mg Q.5D Take 1 Met hodi one - 10-27 tablet (50 st (ALDACTONE) 00:00: 04:59 mg total) Hospita 50 MG 00 :00 by mouth 2 l tablet (two) times a day for 30 days. sucralfate 2021- Yes 1g Q.25D Take 10 mL Methodi (CARAFATE) 01-04 ([address] 100 mg/mL 00:00: 04:59 total) by Ho spita suspension 00 :00 mouth 4 l (four) times a day before meals and nightly for 30 days. zinc 2021- Yes 1{capsu QD Take 1 Methodi sulfate 01-04- le} capsule by st (ZINCATE) 00:00: 04:59 mouth Hospit a 50 mg zinc 00 :00 daily for l (220 mg) 30 days. capsule lactulose 2021- Yes 20g Q.25D Take 30 mL Methodi 20 gram/30 01-04- ([address] mL solution 00:00: 04:59 total) by Hospita 00 :00 mouth 4 l (four) times a day for 30 days. furosemide 2021- Yes 40mg Q.5D Take 1 Meth dimitri (Lasix) 40 9- 10-27 tablet (40 st mg tablet 00:00: 04:59 mg total) Ho spita 00 :00 by mouth 2 l (two) times a day for 30 days. pantoprazol 2021- Yes 40mg QD Take 1 Met hodi e 9- 10-27 tablet (40 st (PROTONIX) 00:00: 04:59 mg total) H ospita 40 MG EC 00 :00 by mouth l tablet daily for 30 days. spironolact 2021- Yes 50mg Q.5D Take 1 Met [facility]odi one - 10- tablet (50 st (ALDACTONE) 00:00: 04:59 mg total) Hospita 50 MG 00 :00 by mouth 2 l tablet (two) times a day for 30 days. sucralfate 2021- Yes 1g Q.25D Take 10 mL Methodi (CARAFATE) 01-04 ([address] 100 mg/mL 00:00: 04:59 total) by Ho spita suspension 00 :00 mouth 4 l (four) times a day before meals and nightly for 30 days. zinc 2021- Yes 1{capsu QD Take 1 Methodi sulfate 01-04 le} capsule by st (ZINCATE) 00:00: 04:59 mouth Hospit a 50 mg zinc 00 :00 daily for l (220 mg) 30 days. capsule lactulose 2021- No 20g Q.25D Take 30 mL Methodi 20 gram/30 01-04 ([address] mL solution 00:00: 00:00 total) by Hospita 00 :00 mouth 4 l (four) times a day for 30 days. furosemide 2021- No 40mg Q.5D Take 1 Meth dimitri (Lasix) 40 01-04 tablet (40 st mg tablet 00:00: 00:00 mg total) Ho spita 00 :00 by mouth 2 l (two) times a day for 30 days. pantoprazol 2021- No 40mg QD Take 1 Met hodi e 01-04- tablet (40 st (PROTONIX) 00:00: 00:00 mg total) H ospita 40 MG EC 00 :00 by mouth l tablet daily for 30 days. spironolact 2021- No 50mg Q.5D Take 1 Met [facility]odi one - 10-27 tablet (50 st (ALDACTONE) 00:00: 00:00 mg total) Hospita 50 MG 00 :00 by mouth 2 l tablet (two) times a day for 30 days. sucralfate 2021- No 1g Q.25D Take 10 mL [facility] (CARAFATE) 01-04 ([address] 100 mg/mL 00:00: 00:00 total) by Ho spita suspension 00 :00 mouth 4 l (four) times a day before meals and nightly for 30 days. zinc 2021- No 1{capsu QD Take 1 Methodi sulfate 01-04 le} capsule by st (ZINCATE) 00:00: 00:00 mouth Hospit a 50 mg zinc 00 :00 daily for l (220 mg) 30 days. capsule riFAXimin Yes 550mg Q.5D Take 1 Metho di (XIFAXAN) 12-[address] 550 mg 17:46: (550 mg Hospita tablet 30 total) by l mouth 2 (two) times a day. pancrelipas 2021- Yes 2{capsu Q.[id number] Take 2 Methodi e, 12-18 le} [id number] capsules st lipase-prot 00:00: 04:59 3D by mouth 3 Hospita ease-amylas 00 :00 (three) l e, (CREON) times a 6,000-19,00 day with 0 -30,000 meals for unit 30 days. capsule,del ayed release(DR/ EC) capsule methocarbam 2021- Yes 500mg Q.[id number] Take 1 [facility]i oL 12-[id number] (ROBAXIN) 00:00: 04:59 3D (500 mg [facility] 500 MG 00 :00 total) by l tablet mouth 3 (three) times a day as needed (abdominal cramping) for up to 30 days. pancrelipas 2021- Yes 2{capsu Q.[id number] Take 2 Methodi e, 12-18 le} [id number] capsules st lipase-prot 00:00: 04:59 3D by mouth 3 Hospita ease-amylas 00 :00 (three) l e, (CREON) times a 6,000-19,00 day with 0 -30,000 meals for unit 30 days. capsule,del ayed release(DR/ EC) capsule methocarbam 2021- Yes 500mg Q.95766326 Take 1 Methodi oL 12-[id number] (ROBAXIN) 00:00: 04:59 3D (500 mg [facility] 500 MG 00 :00 total) by l tablet mouth 3 (three) times a day as needed (abdominal cramping) for up to 30 days. pancrelipas 2021- Yes 2{capsu Q.[id number] Take 2 Methodi e, 12-18 le} [id number] capsules st lipase-prot 00:00: 04:59 3D by mouth 3 Hospita ease-amylas 00 :00 (three) l e, (CREON) times a 6,000-19,00 day with 0 -30,000 meals for unit 30 days. capsule,del ayed release(DR/ EC) capsule methocarbam 2021- Yes 500mg Q.[id number] Take 1 Methodi oL 12-[id number] (ROBAXIN) 00:00: 04:59 3D (500 mg [facility] 500 MG 00 :00 total) by l tablet mouth 3 (three) times a day as needed (abdominal cramping) for up to 30 days. pancrelipas 2021- No 2{capsu Q.08602173 Take 2 Methodi e, 12-18 le} [id number] capsules st lipase-prot 00:00: 04:59 3D by mouth 3 Hospita ease-amylas 00 :00 (three) l e, (CREON) times a 6,000-19,00 day with 0 -30,000 meals for unit 30 days. capsule,del ayed release(DR/ EC) capsule methocarbam 2021- No 500mg Q.[id number] Take 1 Methodi oL 12-[id number] (ROBAXIN) 00:00: 04:59 3D (500 mg [facility] 500 MG 00 :00 total) by l tablet mouth 3 (three) times a day as needed (abdominal cramping) for up to 30 days. HYDROcodone 2021- No [id number] 1{tbl} Q6H Take 1 Methodi -acetaminop 12-[address] hen (NORCO) 00:00: 00:00 mouth [facility] 10-325 mg 00 :00 every 6 l per tablet (six) hours as needed for severe pain for up to 10 days .acute pain. Max Daily Amount: 4 tablets HYDROcodone 2022-0 2022- [place] [id number] 1{tbl} Q6H Take 1 Methodi -acetaminop 12-[address] hen ([employer]) 00:00: 00:00 mouth [facility] 10-325 mg 00 :00 every 6 l per tablet (six) hours as needed for severe pain for up to 10 days .acute pain. Max Daily Amount: 4 tablets HYDROcodone 2022-0 2022- No [id number] 1{tbl} Q6H Take 1 Methodi -acetaminop 12-[address] hen ([employer]) 00:00: 00:00 mouth [facility] 10-325 mg 00 :00 every 6 l per tablet (six) hours as needed for severe pain for up to 10 days .acute pain. Max Daily Amount: 4 tablets HYDROcodone 2022-0 2021- No [id number] 1{tbl} Q6H Take 1 Methodi -acetaminop 12-18- tablet by [place] ([place]) 00:00: 04:59 mouth [facility] 10-325 mg 00 :00 every 6 l per tablet (six) hours as needed for severe pain for up to 10 days .acute pain. Max Daily Amount: 4 tablets riFAXimin 2021-0 Yes 550mg Q.5D Take 1 Metho di (XIFAXAN) 8- tablet st 550 mg 14:06: (550 mg Hospita tablet 05 total) by l mouth 2 (two) times a day. pantoprazol 2022-0 2021- No 40mg QD Take 1 Met hodi e - 08-25 tablet (40 st (PROTONIX) 14:06: 00:00 mg total) H ospita 40 MG EC 05 :00 by mouth l tablet daily. pantoprazol 2022-0 2022- No 40mg QD Take 1 Met hodi e 8- 08-25 tablet (40 st (PROTONIX) 14:06: 00:00 mg total) H ospita 40 MG EC 05 :00 by mouth l tablet daily. pantoprazol 2022-0 2022- No 40mg QD Take 1 Met hodi [...] by mouth l tablet daily. zinc 2021- No 1{capsu QD Take 1 Methodi sulfate 12-04 le} capsule by st (ZINCATE) 00:00: 00:00 mouth Hospit a 50 mg zinc 00 :00 daily for l (220 mg) 30 days. capsule zinc 2021- No 1{capsu QD Take 1 Methodi sulfate 12-04 le} capsule by st (ZINCATE) 00:00: 00:00 mouth Hospit a 50 mg zinc 00 :00 daily for l (220 mg) 30 days. capsule zinc 2021- No 1{capsu QD Take 1 Methodi sulfate 12-04 le} capsule by st (ZINCATE) 00:00: 04:59 mouth Hospit a 50 mg zinc 00 :00 daily for l (220 mg) 30 days. capsule zinc 2021- No 1{capsu QD Take 1 Methodi sulfate 12-04 le} capsule by st (ZINCATE) 00:00: 04:59 mouth Hospit a 50 mg zinc 00 :00 daily for l (220 mg) 30 days. capsule zinc 2021- No 1{capsu QD Take 1 Methodi sulfate 12-04 le} capsule by st (ZINCATE) 00:00: 00:00 mouth Hospit a 50 mg zinc 00 :00 daily for l (220 mg) 30 days. capsule lactulose 2021- No 20g Q24H Take 30 mL M ethodi 10 gram/15 12-03 ([address] mL (15 mL) 00:00: 00:00 total) by H ospita solution 00 :00 mouth l daily as needed (2 to 3 soft stools per day) for up to 30 days. ondansetron 2022-0 2022- No 4mg Q8H Take 1 Met hodi ODT 12-03 tablet (4 st (ZOFRAN-ODT 00:00: 00:00 mg total) Hospita ) 4 MG 00 :00 by mouth l disintegrat every 8 ing tablet (eight) hours as needed for nausea or vomiting for up to 30 days. lactulose 2021-0 2022- No 20g Q24H Take 30 mL M ethodi 10 gram/15 12-03 ([address] mL (15 mL) 00:00: 00:00 total) by H ospita solution 00 :00 mouth l daily as needed (2 to 3 soft stools per day) for up to 30 days. ondansetron 2-0 2022- No 4mg Q8H Take 1 Met hodi ODT 12-03 tablet (4 st (ZOFRAN-ODT 00:00: 00:00 mg total) Hospita ) 4 MG 00 :00 by mouth l disintegrat every 8 ing tablet (eight) hours as needed for nausea or vomiting for up to 30 days. lactulose 2-0 2022- No 20g Q24H Take 30 mL M ethodi 10 gram/15 12-03 ([address] mL (15 mL) 00:00: 00:00 total) by H ospita solution 00 :00 mouth l daily as needed (2 to 3 soft stools per day) for up to 30 days. ondansetron 2022-0 2022- No 4mg Q8H Take 1 Met hodi ODT 12-03 tablet (4 st (ZOFRAN-ODT 00:00: 00:00 mg total) Hospita ) 4 MG 00 :00 by mouth l disintegrat every 8 ing tablet (eight) hours as needed for nausea or vomiting for up to 30 days. furosemide 2-0 2022- No 40mg Q.5D Take 1 Meth dimitri (Lasix) 40 12-03 tablet (40 st mg tablet 00:00: 00:00 mg total) Ho spita 00 :00 by mouth 2 l (two) times a day for 30 days. pantoprazol 2022-0 2022- No 40mg QD Take 1 Met hodi e 12-03- tablet (40 st (PROTONIX) 00:00: 00:00 mg total) H ospita 40 MG EC 00 :00 by mouth l tablet daily for 30 days. spironolact 2022-0 2022- No 50mg Q.5D Take 1 Met hodi one 12-03 tablet (50 st (ALDACTONE) 00:00: 00:00 mg total) Hospita 50 MG 00 :00 by mouth 2 l tablet (two) times a day for 30 days. sucralfate 2022-0 2022- No 1g Q.25D Take 10 mL Methodi (CARAFATE) 12-03 ([address] 100 mg/mL 00:00: 00:00 total) by Ho spita suspension 00 :00 mouth 4 l (four) times a day before meals and nightly for 30 days. furosemide 2-0 2022- No 40mg Q.5D Take 1 Meth dimitri (Lasix) 40 12-03 tablet (40 st mg tablet 00:00: 00:00 mg total) Ho spita 00 :00 by mouth 2 l (two) times a day for 30 days. pantoprazol 2022-0 2022- No 40mg QD Take 1 Met hodi e 12-03 tablet (40 st (PROTONIX) 00:00: 00:00 mg total) H ospita 40 MG EC 00 :00 by mouth l tablet daily for 30 days. spironolact 2022-0 2022- No 50mg Q.5D Take 1 Met hodi one 12-03- tablet (50 st (ALDACTONE) 00:00: 00:00 mg total) Hospita 50 MG 00 :00 by mouth 2 l tablet (two) times a day for 30 days. sucralfate 2022-0 2022- No 1g Q.25D Take 10 mL Methodi (CARAFATE) 12-03 ([address] 100 mg/mL 00:00: 00:00 total) by Ho spita suspension 00 :00 mouth 4 l (four) times a day before meals and nightly for 30 days. furosemide 2021-0 2021- No 40mg Q.5D Take 1 Meth dimitri (Lasix) 40 12-03 tablet (40 st mg tablet 00:00: 00:00 mg total) Ho spita 00 :00 by mouth 2 l (two) times a day for 30 days. pantoprazol 2021-2021- No 40mg QD Take 1 Met hodi e 12-03 tablet (40 st (PROTONIX) 00:00: 00:00 mg total) H ospita 40 MG EC 00 :00 by mouth l tablet daily for 30 days. spironolact 2021-2021- No 50mg Q.5D Take 1 Met hodi one 12-03 tablet (50 st (ALDACTONE) 00:00: 00:00 mg total) Hospita 50 MG 00 :00 by mouth 2 l tablet (two) times a day for 30 days. sucralfate 2021- No 1g Q.25D Take 10 mL Methodi (CARAFATE) 12-03 ([address] 100 mg/mL 00:00: 00:00 total) by Ho spita suspension 00 :00 mouth 4 l (four) times a day before meals and nightly for 30 days. furosemide 2021-2021- No 40mg Q.5D Take 1 Meth dimtiri (Lasix) 40 12-03 tablet (40 st mg tablet 00:00: 04:59 mg total) Ho spita 00 :00 by mouth 2 l (two) times a day for 30 days. lactulose 2021-2021- No 20g Q24H Take 30 mL M ethodi 10 gram/15 12-03 ([address] mL (15 mL) 00:00: 04:59 total) by H [facility] solution 00 :00 mouth l daily as needed (2 to 3 soft stools per day) for up to 30 days. pantoprazol 2021-2021- No 40mg QD Take 1 Met hodi e 12-03 tablet (40 st (PROTONIX) 00:00: 04:59 mg total) H [facility]spita 40 MG EC 00 :00 by mouth l tablet daily for 30 days. spironolact 2021-2021- No 50mg Q.5D Take 1 Met hodi one 12-03-25 tablet (50 st (ALDACTONE) 00:00: 04:59 mg total) Hospita 50 MG 00 :00 by mouth 2 l tablet (two) times a day for 30 days. ondansetron 2021-2021- No 4mg Q8H Take 1 Met hodi ODT 12-03 tablet (4 st (ZOFRAN-ODT 00:00: 04:59 mg total) Hospita ) 4 MG 00 :00 by mouth l disintegrat every 8 ing tablet (eight) hours as needed for nausea or vomiting for up to 30 days. sucralfate 2021- No 1g Q.25D Take 10 mL Methodi (CARAFATE) 12-03 ([address] 100 mg/mL 00:00: 04:59 total) by Ho spita suspension 00 :00 mouth 4 l (four) times a day before meals and nightly for 30 days. furosemide 2021- No 40mg Q.5D Take 1 Meth dimitri (Lasix) 40 12-03 tablet (40 st mg tablet 00:00: 04:59 mg total) Ho spita 00 :00 by mouth 2 l (two) times a day for 30 days. lactulose 2021-2021- No 20g Q24H Take 30 mL M ethodi 10 gram/15 12-03 ([address] mL (15 mL) 00:00: 04:59 total) by H [facility]sp[facility] solution 00 :00 mouth l daily as needed (2 to 3 soft stools per day) for up to 30 days. pantoprazol 2021-2021- No 40mg QD Take 1 Met hodi e 12-03 tablet (40 st (PROTONIX) 00:00: 04:59 mg total) H ospita 40 MG EC 00 :00 by mouth l tablet daily for 30 days. spironolact 2021-2021- No 50mg Q.5D Take 1 Met hodi one -03 01-25 tablet (50 st (ALDACTONE) 00:00: 04:59 mg total) Hospita 50 MG 00 :00 by mouth 2 l tablet (two) times a day for 30 days. ondansetron 2021- No 4mg Q8H Take 1 Met hodi ODT 12-03 tablet (4 st (ZOFRAN-ODT 00:00: 04:59 mg total) Hospita ) 4 MG 00 :00 by mouth l disintegrat every 8 ing tablet (eight) hours as needed for nausea or vomiting for up to 30 days. sucralfate 2021- No 1g Q.25D Take 10 mL [facility] (CARAFATE) 12-03 ([address] 100 mg/mL 00:00: 04:59 total) by Ho spita suspension 00 :00 mouth 4 l (four) times a day before meals and nightly for 30 days. HYDROcodone 2021-2021- [place] [id number] 1{tbl} Q6H Take 1 Methodi -acetaminop 8-25 - tablet by st [facility] ([employer]) 00:00: 00:00 mouth [facility] 10-325 mg 00 :00 every 6 l per tablet (six) hours as needed for severe pain for up to 10 days .acute pain. Max Daily Amount: 4 tablets HYDROcodone 2021-0 2021- No [id number] 1{tbl} Q6H Take 1 Methodi -acetaminop 8-25 - tablet by [facility] ([employer]) 00:00: 00:00 mouth [facility] 10-325 mg 00 :00 every 6 l per tablet (six) hours as needed for severe pain for up to 10 days .acute pain. Max Daily Amount: 4 tablets HYDROcodone 2021-0 2021- No [id number] 1{tbl} Q6H Take 1 Methodi -acetaminop 8-25 - tablet by st hen ([employer]) 00:00: 00:00 mouth [facility] 10-325 mg 00 :00 every 6 l per tablet (six) hours as needed for severe pain for up to 10 days .acute pain. Max Daily Amount: 4 tablets HYDROcodone 2021-0 2021- No [id number] 1{tbl} Q6H Take 1 Methodi -acetaminop 8-25 - tablet by st hen Win[facility]) 00:00: 00:00 mouth [facility] 10-325 mg 00 :00 every 6 l per tablet (six) hours as needed for severe pain for up to 10 days .acute pain. Max Daily Amount: 4 [place] [id number] 1{tbl} Q6H Take 1 Methodi -acetaminop 8-25 09-[address] peggy (NORCO) 00:00: 04:59 mouth [facility] 10-325 mg 00 :00 every 6 l per tablet (six) hours as needed for severe pain for up to 10 days .acute pain. Max Daily Amount: 4 tablets pancrelipas 2021- No 1{capsu Q.[id number] Take 1 Methodi e, 8-18 08-18 le} [id number] capsule by st lipase-prot 20:41: 00:00 3D mouth 3 Ho spita ease-amylas 22 :00 (three) l e, (CREOND) times a 12,000-38,0 day with 00 -60,000 meals. unit capsule,del ayed release(DR/ EC) capsule pancrelipas 2021- No 1{capsu Q.[id number] Take 1 Methodi e, 8- 08-18 le} [id number] capsule by st lipase-prot 20:41: 00:00 3D mouth 3 Ho spita ease-amylas 22 :00 (three) l e, (CREOND) times a 12,000-38,0 day with 00 -60,000 meals. unit capsule,del ayed release(DR/ EC) capsule pancrelipas 2021- No 1{capsu Q.[id number] Take 1 Methodi e, 8-18 08-18 le} [id number] capsule by st lipase-prot 20:41: 00:00 3D mouth 3 Ho spita ease-amylas 22 :00 (three) l e, (CREOND) times a 12,000-38,0 day with 00 -60,000 meals. unit capsule,del ayed release(DR/ EC) capsule pancrelipas 2021- No 1{capsu Q.[id number] Take 1 Methodi e, 8-18 08-18 le} [id number] capsule by st lipase-prot 20:41: 00:00 3D mouth 3 Ho spita ease-amylas 22 :00 (three) l e, (CREOND) times a 12,000-38,0 day with 00 -60,000 meals. unit capsule,del ayed release(DR/ EC) capsule pancrelipas 2021-2021- No 1{capsu Q.[id number] Take 1 Methodi e, 8-18 le} [id number] capsule by st lipase-prot 20:41: 00:00 3D mouth 3 [facility] sp[facility] ease-amylas 22 :00 (three) l e, (CREOND) times a 12,000-38,0 day with 00 -60,000 meals. unit capsule,del ayed release(DR/ EC) capsule spironolact 2021-0 2021- No 25mg QD Take 25 mg Methodi one 7-18 07-[address] (ALDACTONE) 14:44: 00:00 daily. [facility] 25 MG 06 :00 l tablet furosemide 2021-0 2- No 20mg QD Take 20 mg Methodi (LASIX) 20 7-18 07-[address] mg tablet 14:44: 00:00 daily. Hospi ta 06 :00 l spironolact 2021-0 202- No 25mg QD Take 25 mg Methodi one 7-18 07-[address] (ALDACTONE) 14:44: 00:00 daily. [facility] 25 MG 06 :00 l tablet furosemide 2021-0 2- No 20mg QD Take 20 mg [facility]i (LASIX) 20 7-18 07-[address] mg tablet 14:44: 00:00 daily. Hospi ta 06 :00 l spironolact 2021-0 2022- No 25mg QD Take 25 mg Methodi one 7-18 07-[address] (ALDACTONE) 14:44: 00:00 daily. [facility] al[facility] 25 MG 06 :00 l tablet furosemide 2021-0 2022- No 20mg QD Take 20 mg [facility] (LASIX) 20 7-18 07-[address] mg tablet 14:44: 00:00 daily. Hospi ta 06 :00 l spironolact 2022-0 2022- No 25mg QD Take 25 mg Methodi one 7-18 07-[address] (ALDACTONE) 14:44: 00:00 daily. [facility] 25 MG 06 :00 l tablet furosemide 2021- No 20mg QD Take 20 mg [facility] (LASIX) 20 10-26-[address] mg tablet 14:44: 00:00 daily. Hospi ta 06 :00 l spironolact 2021-2021- No 25mg QD Take 25 mg [facility]i one 10-26-[address] (ALDACTONE) 14:44: 00:00 daily. [facility] 25 MG 06 :00 l tablet furosemide 2021- No 20mg QD Take 20 mg [facility] (LASIX) 20 10-26-[address] mg tablet 14:44: 00:00 daily. Hospi ta 06 :00 l spironolact 2021-2021- No 50mg Q.5D Take 1 Met hodi one -18 08-25 tablet (50 st (ALDACTONE) 00:00: 00:00 mg total) Hospita 50 MG 00 :00 by mouth 2 l tablet (two) times a day for 30 days. furosemide 2021-2021- No 40mg Q.5D Take 1 Meth dimitri (Lasix) 40 10-26 08-25 tablet (40 st mg tablet 00:00: 00:00 mg total) Ho spita 00 :00 by mouth 2 l (two) times a day for 30 days. spironolact 2021-2021- No 50mg Q.5D Take 1 Met hodi one 7-18 08-25 tablet (50 st (ALDACTONE) 00:00: 00:00 mg total) Hospita 50 MG 00 :00 by mouth 2 l tablet (two) times a day for 30 days. furosemide 2021-0 2021- No 40mg Q.5D Take 1 Meth dimitri (Lasix) 40 7- 08-25 tablet (40 st mg tablet 00:00: 00:00 mg total) Ho spita 00 :00 by mouth 2 l (two) times a day for 30 days. spironolact 2021-0 2021- No 50mg Q.5D Take 1 Met hodi one 7-18 08-25 tablet (50 st (ALDACTONE) 00:00: 00:00 mg total) Hospita 50 MG 00 :00 by mouth 2 l tablet (two) times a day for 30 days. furosemide 2021-2021- No 40mg Q.5D Take 1 Meth dimitri (Lasix) 40 7-18 08-25 tablet (40 st mg tablet 00:00: 00:00 mg total) Ho spita 00 :00 by mouth 2 l (two) times a day for 30 days. spironolact 2021-2- No 50mg Q.5D Take 1 Met hodi one 7-18 08-25 tablet (50 st (ALDACTONE) 00:00: 00:00 mg total) Hospita 50 MG 00 :00 by mouth 2 l tablet (two) times a day for 30 days. furosemide 2021-2021- No 40mg Q.5D Take 1 Meth dimitri (Lasix) 40 7-18 08-25 tablet (40 st mg tablet 00:00: 00:00 mg total) Ho spita 00 :00 by mouth 2 l (two) times a day for 30 days. spironolact 2021- No 50mg Q.5D Take 1 Met hodi one 7-18 08-25 tablet (50 st (ALDACTONE) 00:00: 00:00 mg total) Hospita 50 MG 00 :00 by mouth 2 l tablet (two) times a day for 30 days. furosemide 2021- No 40mg Q.5D Take 1 Meth dimitri (Lasix) 40 7-18 08-25 tablet (40 st mg tablet 00:00: 00:00 mg total) Ho spita 00 :00 by mouth 2 l (two) times a day for 30 days. acetaminoph 2021- No 1{tbl} 1 tablet, Univers en-codeine 09-29 Oral, ity of (TYLENOL 06:00: 05:02 ONCE, 1 [place] #3) 300-30 00 :00 dose, On Medic al mg tablet 1 Tue Branch tablet 09/29/21 at 0100, VERN naproxen 2021- No 500mg 500 mg, Univ ers (NAPROSYN) 09-29 Oral, ity of tablet 500 06:00: 04:58 ONCE, 1 [place] mg 00 :00 dose, On Medical Tue Branch 09/29/21 at 0100, Routine naproxen Yes [id number] 500mg Take 1 Univers (NAPROSYN) 6-20 9104 tablet by ity of 500 mg 00:00: mouth 2 [place] tablet 00 (two) Medical times Branch daily with meals. naproxen Yes [id number] 500mg Take 1 Univers (NAPROSYN) 6-20 9104 tablet by ity of 500 mg [...] 04/02/21 at 1445, VERN ondansetron 2020-04 Yes [id number] 4mg Take 1 [facility] 4 mg 2-23 tablet by ity of disintegrat 00:00: mouth [place] ing tablet 00 every 8 Medica l (eight) Branch hours as needed for Nausea and Vomiting (N/V). ondansetron 2020-04 Yes [id number] 4mg Take 1 Univers 4 mg 2-23 tablet by ity of disintegrat 00:00: mouth [place] ing tablet 00 every 8 Medica l (eight) Branch hours as needed for Nausea and Vomiting (N/V). ondansetron 2020-04 Yes [id number] 4mg Take 1 [facility] 4 mg 2-23 tablet by ity of disintegrat 00:00: mouth [place] ing tablet 00 every 8 Medica l (eight) Branch hours as needed for Nausea and Vomiting (N/V). ondansetron 2020-04 Yes [id number] 4mg Take 1 Univers 4 mg 2-23 tablet by ity of disintegrat 00:00: mouth [place] ing tablet 00 every 8 Medica l (eight) Branch hours as needed for Nausea and Vomiting (N/V). ondansetron 2020-04 Yes [id number] 4mg Take 1 Univers 4 mg 2-23 [...] No 296mL Take 1 Meth dimitri citrate -03 18-[address] solution 00:00: 00:00 (296 mL Hospi ta 00 :00 total) by l mouth once as needed (constipat ion) for up to 1 dose. magnesium 2020-04- No 296mL Take 1 Meth dimitri citrate -03 18-[address] solution 00:00: 00:00 (296 mL [...] No 296mL Take 1 Meth dimitri citrate 04-[address] solution 00:00: 00:00 (296 mL Hospi ta 00 :00 total) by l mouth once as needed (constipat ion) for up to 1 dose. docusate 2020-04- No 100mg Q.5D Take 1 Metho di sodium 1-12 12-[address] (Colace) 00:00: 05:59 (100 mg Hospi ta 100 MG 00 :00 total) by l capsule mouth 2 (two) times a day for 30 days. docusate 2020-04- No 100mg Q.5D Take 1 Metho di sodium 1-12 12-[address] (Colace) 00:00: 05:59 (100 mg Hospi ta 100 MG 00 :00 total) by l capsule mouth 2 (two) times a day for 30 days. docusate 2020-04- No 100mg Q.5D Take 1 Metho di sodium 1-12 12-[address] (Colace) 00:00: 05:59 (100 mg Hospi ta 100 MG 00 :00 total) by l capsule mouth 2 (two) times a day for 30 days. docusate 2020-04- No 100mg Q.5D Take 1 Metho di sodium 1-12 12-[address] (Colace) 00:00: 05:59 (100 mg Hospi ta 100 MG 00 :00 total) by l capsule mouth 2 (two) times a day for 30 days. docusate 2020-04- No 100mg Q.5D Take 1 Metho di sodium 1-12 12-[address] (Colace) 00:00: 05:59 (100 [...] soft stools per day). cholecalcif 2020- No [id number] 2000U Take 2 Univers nuno, 6-26 07-27 tablets by ity of vitamin D3, 00:00: 04:59 [place] 25 mcg 00 :00 daily for Medical (1,000 30 days. Branch unit) tablet cyanocobala 2020- No [id number] 1000ug inject 1 Univers min 1,000 6-26 07-27 mL under ity o f mcg/mL 00:00: 04:59 the skin [place] injection 00 :00 every 24 Medica l (twenty-fo Branch ur) hours for 30 days. KCL 20 mEq 2020- No [id number] 20meq Take 1 Univers tablet 10-04 07-27 tablet by ity of 00:00: 04:59 mouth [place] 00 :00 daily for Medical 30 days. Branch cholecalcif 2020- No [id number] 2000U Take 2 Univers nuno, 10-04 07-27 tablets by ity of vitamin D3, 00:00: 04:59 mouth [place] 25 mcg 00 :00 daily for Medical (1,000 30 days. Branch unit) tablet cyanocobala 2020- No [id number] 1000ug inject 1 Univers min 1,000 6- 07-27 mL under ity o f mcg/mL 00:00: 04:59 the skin [place] injection 00 :00 every 24 Medica l (twenty-fo Branch ur) hours for 30 days. KCL 20 mEq 2020- No [id number] 20meq Take 1 Univers tablet 10-04 07-27 tablet by ity of 00:00: 04:59 mouth [place] 00 :00 daily for Medical 30 days. Branch lactulose Yes 30mL Take 30 mL Un [place] 10 gram/15 6-25 by mouth ity o f mL oral 18:10: daily. [place] solution 25 Medical Branch pantoprazol Yes 40mg Take 40 mg Univers e 6-25 by mouth ity of (PROTONIX) 18:10: daily. [place] 40 mg EC 25 Medical tablet Branch lactulose Yes 30mL Take 30 mL Un [place] 10 gram/15 6-25 by mouth ity o f mL oral 18:10: daily. [place] solution 25 Medical Branch pantoprazol Yes 40mg [...] :00 morning Medical and Branch evening. lactulose 2021-0 Yes 30mL Take 30 mL [...] o f mL oral 13:10: daily. [place] solution 25 Medical Branch pantoprazol Yes 40mg Take 40 mg Univers e 6-25 by mouth ity of (PROTONIX) 13:10: daily. [place] 40 mg EC 25 Medical tablet Branch lactulose Yes 30mL Take 30 mL Un [place] 10 gram/15 6-25 by mouth ity o f mL oral 13:10: daily. [place] solution 25 Medical Branch pantoprazol Yes 40mg [...] unresponsi ve to Ondansetro n proMETHazin Yes [id number] 12.5mg Take 1 Univers e 12.5 mg 6-25 tablet by ity o f tablet 00:00: mouth [place] 00 every 6 Medical (six) Branch hours as needed for Nausea and Vomiting (N/V) or N/V unresponsi ve to Ondansetro n. proMETHazin Yes [id number] 12.5mg Take 1 Univers e 12.5 mg 6-25 tablet by ity o f tablet 00:00: mouth [place] 00 every 6 Medical (six) Branch hours as needed for Nausea and Vomiting (N/V) or N/V unresponsi ve to Ondansetro n. proMETHazin Yes [id number] 12.5mg Take 1 Univers e 12.5 mg 6-25 tablet by ity o f tablet 00:00: mouth [place] 00 every 6 Medical (six) Branch hours as needed for Nausea and Vomiting (N/V) or N/V unresponsi ve to Ondansetro n. proMETHazin Yes [id number] 12.5mg Take 1 Univers e 12.5 mg 6-25 tablet by ity o f tablet 00:00: mouth [place] 00 every 6 Medical (six) Branch hours as needed for Nausea and Vomiting (N/V) or N/V unresponsi ve to Ondansetro n. proMETHazin Yes [id number] 12.5mg Take 1 Univers e 12.5 mg 6-25 tablet by ity o f tablet 00:00: mouth [place] 00 every 6 Medical (six) Branch hours as needed for Nausea and Vomiting (N/V) or N/V unresponsi ve to Ondansetro n. proMETHazin Yes [id number] 12.5mg Take 1 Univers e 12.5 mg 6-25 tablet by ity o f tablet 00:00: mouth [place] 00 every 6 Medical (six) Branch hours as needed for Nausea and Vomiting (N/V) or N/V unresponsi ve to Ondansetro n. proMETHazin Yes [id number] 12.5mg Take 1 Univers e 12.5 mg 6-25 tablet by ity o f tablet 00:00: mouth [place] 00 every 6 Medical (six) Branch hours as needed for Nausea and Vomiting (N/V) or N/V unresponsi ve to Ondansetro n. proMETHazin Yes [id number] 12.5mg Take 1 Univers e 12.5 mg 6-25 tablet by ity o f tablet 00:00: mouth [place] 00 every 6 Medical (six) Branch hours as needed for Nausea and Vomiting (N/V) or N/V unresponsi ve to Ondansetro n. proMETHazin Yes [id number] 12.5mg Take 1 Univers e 12.5 mg 6-25 tablet by ity o f tablet 00:00: mouth [place] 00 every 6 Medical (six) Branch hours as needed for Nausea and Vomiting (N/V) or N/V unresponsi ve to Ondansetro n. proMETHazin Yes [id number] 12.5mg Take 1 Univers e 12.5 mg 6-25 tablet by ity o f tablet 00:00: mouth [place] 00 every 6 Medical (six) Branch hours as needed for Nausea and Vomiting (N/V) or N/V unresponsi ve to Ondansetro n. furosemide 2020-0 2020- No [id number] 40mg Take 1 Univers 40 mg 6-25 07-26 tablet by ity of tablet 00:00: 04:59 mouth [place] 00 :00 every Medical morning Branch and evening for 30 days. lipase-prot 2020- No [id number] 2{capsu Take 2 Univers ease-amylas 6-25 07-26 le} capsules ity of e 00:00: 04:59 by mouth 3 [place] 12,000-38,0 00 :00 (three) Medic al 00 -60,000 times Branch unit daily with capsule meals for 30 days. lactobacill 2020- No [id number] .5mg Take 1 Univers us 6-25 07-26 tablet by ity of acidophilus 00:00: 04:59 mouth 2 [place] 00 :00 (two) Medical times Branch daily for 30 days. furosemide 2020- No [id number] 40mg Take 1 [facility] 40 mg 6-25 07-26 tablet by ity of tablet 00:00: 04:59 mouth [place] 00 :00 every Medical morning Branch and evening for 30 days. lipase-prot 2020- No [id number] 2{capsu Take 2 Univers ease-amylas 6-25 07-26 le} capsules ity of e 00:00: 04:59 by mouth 3 [place] 12,000-38,0 00 :00 (three) Medic al 00 -60,000 times Branch unit daily with capsule meals for 30 days. lactobacill 2020- No [id number] .5mg Take 1 Univers us 6-25 07-26 tablet by ity of acidophilus 00:00: 04:59 mouth 2 [place] 00 :00 (two) Medical times Branch daily for 30 days. vancomycin 2020- No [id number] 125mg Take 1 Univers 125 mg 6-25 07-06 capsule by ity of capsule 00:00: 04:59 mouth 4 [place] 00 :00 (four) Medical times Branch daily for 10 days. vancomycin 2020- No [id number] 125mg Take 1 Univers 125 mg 6-25 07-06 capsule by ity of capsule 00:00: 04:59 mouth 4 [place] 00 :00 (four) Medical times Branch daily for 10 days. HYDROcodone 2020- No [id number] 1{tbl} Take 1 U nivers -acetaminop 6-25 - tablet by it y of hen 5-325 00:00: 04:59 mouth [place] mg tablet 00 :00 every 6 Medical (six) Branch hours as needed for Pain (scale 7-10) for up to 7 days. Indication s: acute pain HYDROcodone 2020- No [id number] 1{tbl} Take 1 U nivers -acetaminop 6-25 - tablet by it y of hen 5-325 00:00: 04:59 mouth [place] mg tablet 00 :00 every 6 Medical (six) Branch hours as needed for Pain (scale 7-10) for up to 7 days. Indication s: acute pain cephALEXin 2020- No [id number] 500mg Take 1 Univers 500 mg 10-03 capsule by ity of capsule 00:00: 04:59 mouth 4 [place] 00 :00 (four) Medical times Branch daily for 5 days. cephALEXin 2020- No [id number] 500mg Take 1 Univers 500 mg 10-03 [...] Yes 40mg 40 mg, Unive rs (LASIX) -23 Oral, ity of tablet 40 14:00: QAM+PM, [...] mg 15 :07 Q4HPRN, Medical Starting Branch [facility] 09/30/20 at 1211, Until Geraldine 10/02/20 at [...] at 1615, Routine cholecalcif Yes 2000U 2,000 [facility] ers nuno 09-29 Units, ity of (vitamin 20:00: Oral, [place] D3) tablet 00 DAILY, Medical 2,000 Units First dose Br anch on Tue09/29/20 at 1500, Until Discontinu ed, Routine lactobacill Yes .5mg 0.5 mg, Uni vers us 09-29 Oral, BID, ity of acidophilus 14:15: First dose [place] tablet 0.5 00 on [facility] Medical mg 09/29/20 at Branch 0915, [...] First dose Me dical 00 -60,000 on [facility] Branch unit 09/29/20 at capsule 2 [...] injection 4 17 Starting Medi molly mg [facility] Branch 09/29/20 at 0142, Until Discontinu ed, Routine, Nausea and Vomiting (N/V) iopamidol 2020- No [id number] 100mL 100 mL, Univers (ISOVUE 09-29 Intravenou [...] Medical 09/29/20 at Branch 0045, Routine ondansetron No 4mg 4 mg, Slow Univers (ZOFRAN [...] Meloxicam 2020- No Gm 1 tablet Common 09-17- [facility] 00:00: 00:00 - [facility] 00 :00 [facility] flu vaccine 2019- No .5mL 0.5 mL, [...] [place] solution 33 :00 times Medical daily. [place] iohexol 2019- No 120mL 120 mL, Unive [...] for Pain (scale 4-6). acetaminoph 2020-0 Yes [id number] 1{tbl} Take 1 Univers en-codeine 5-02 tablet by ity of 300-30 mg 00:00: mouth [place] tablet 00 every 4 Medical (four) Branch hours as needed for Pain (scale 4-6). acetaminoph 2020-0 Yes [id number] 1{tbl} Take 1 Univers en-codeine 5-02 tablet by ity of 300-30 mg 00:00: mouth [place] tablet 00 every 4 Medical (four) Branch hours as needed for Pain (scale 4-6). acetaminoph 2020-0 Yes [id number] 1{tbl} Take 1 Univers en-codeine 5-02 tablet by ity of 300-30 mg 00:00: mouth [place] tablet 00 every 4 Medical (four) Branch hours as needed for Pain (scale 4-6). acetaminoph 2020-0 Yes [id number] 1{tbl} Take 1 Univers en-codeine 5-02 tablet by ity of 300-30 mg 00:00: mouth [place] tablet 00 every 4 Medical (four) Branch hours as needed for Pain (scale 4-6). acetaminoph 2020-0 Yes [id number] 1{tbl} Take 1 Univers en-codeine 5-02 tablet by ity of 300-30 mg 00:00: mouth [place] tablet 00 every 4 Medical (four) Branch hours as needed for Pain (scale 4-6). acetaminoph 2020-0 Yes [id number] 1{tbl} Take 1 Univers en-codeine 5-02 tablet by ity of 300-30 mg 00:00: mouth [place] tablet 00 every 4 Medical (four) Branch hours as needed for Pain (scale 4-6). acetaminoph 2020-0 Yes [id number] 1{tbl} Take 1 Univers en-codeine 5-02 tablet by ity of 300-30 mg 00:00: mouth [place] tablet 00 every 4 Medical (four) Branch hours as needed for Pain (scale 4-6). lactulose 2020-0 2020- No [id number] 30mL Take 30 mL Univers 10 gram/15 5-02 06-02 by mouth 2 it y of mL oral 00:00: 04:59 (two) [place] solution 00 :00 times Medical daily for Branch 30 days. pantoprazol 2020-0 2019- No [id number] 40mg Take 1 Univers e 40 mg EC 08-10 tablet by ity of tablet 00:00: 04:59 mouth [place] 00 :00 daily for Medical 30 days. Branch lactulose 2019-0 2019- No [id number] 30mL Take 30 mL Univers 10 gram/15 08-10 by mouth 2 it y of mL oral 00:00: 04:59 (two) [place] solution 00 :00 times Medical daily for Branch 30 days. pantoprazol 2019-0 2019- No [id number] 40mg Take 1 Univers e 40 mg EC 08-10 tablet by ity of tablet 00:00: 04:59 mouth [place] 00 :00 daily for Medical 30 days. Branch propranolol 2019-2019- No [id number] 10mg Take 1 Univers 10 mg 08-10 [...] No 4mg 4 mg, Slow Univers (ZOFRAN 08-0902 IV Push, ity of (PF)) 08:55: 03:29 Q6HPRN, [place] injection 4 07 :20 Starting Medi molly mg Tue08/10/19 Branch at 0355, Until Tue08/10/19 at 2229, Routine, Nausea and Vomiting (N/V) lactulose 2018-0 Yes 10g Q.5D Take [address] [facility] (CEPHULAC) 6-25 by mouth 2 [place] es 10 gram 17:37: (two) Medical packet 13 times Center daily . rifAXIMin 2019-0 Yes hepatic 550mg Q.5D Take [address] [facility] [address] 550 mg Tab 6-25 encephalopa mg by L ukes 17:37: thy mouth 2 Medical 13 (two) Center times daily. lactulose 2019-0 Yes 10g Q.5D Take [address] [facility] (CEPHULAC) 6-25 by mouth 2 [place] 10 gram 17:37: (two) Medical packet 13 times Center daily . rifAXIMin 2019-0 Yes hepatic 550mg Q.5D Take [address] 550 mg Tab 6-25 encephalopa mg by L ukes 17:37: thy mouth 2 Medical 13 (two) Center times daily. lactulose 2019-0 Yes 10g Q.5D Take 10 [...] Sodium e Sodium Singh defined [facility] Acetaminoph Acetaminoph Yes Gm not Common en-Codeine en-Codeine Singh defined [facility] #3 #3 [facility] Oseltamivir Oseltamivir Yes Gm not Common Phosphate Phosphate Singh defined Sp cleopatra [facility] Levofloxaci Levofloxaci Yes Gm not Common n n Singh defined [facility] Xifaxan Xifaxan Yes Gm not Common Singh defined [facility] Lactulose Lactulose Yes Gm not Co mmon Singh defined [facility] Albuterol Albuterol Yes Gm not Co mmon Sulfate HFA Sulfate HFA Singh defined [facility] Azithromyci Azithromyci Yes Gm not Common n n Singh defined [facility] Amoxicillin Amoxicillin Yes Mg not Common -Pot -Pot Singh defined [facility] Clavulanate Clavulanate - [facility] Immunizations Ordered Immunization Filled Immunization Date Status Commen ts Source Name Name FLUCDIANEVAX MARLENI PF 2021-12-[address] [facility] FLUCELVAX QUAD 2021-12-[address] [facility]00 [facility] FLUCELVAX QUAD PF 2021-12-[address] [facility]:00 [facility] FLUCELVAX QUAD PF 2021-12-[address] 00:00:00 Hospital FLUCELVAX QUAD PF 2021-02-[address] [facility]:00 Hospital FLUCELVAX QUAD 2021-02-[address] 00:[facility]:00 Hospital FLUCELVAX QUAD 2021-02-[address] 00:00:00 Hospital FLUCELVAX QUAD 2021-02-[address] 00:00:00 Hospital FLUCELVAX QUAD 2021-02-[address] 00:00:00 [facility] Pneumococcal 2020-10-03 Completed University o f [...] ical PPSV23 (PNEUMOVAX) Branch Pneumococcal 2020-10-03 Completed [facility] Polysaccharide 00:00:00 [facility] SARS-COV-2 COVID-19 2020-08-08 Completed Unive rsity of MODERNA VACCINE 00:00:00 [place] Med ical Branch SARS-COV-2 COVID-19 2020-08-08 Completed Unive rsity of MODERNA VACCINE 00:00:00 [place] [facility] ical Branch SARS-COV-2 COVID-19 2020-08-08 Completed Unive rsity of MODERNA VACCINE 00:00:00 [place] [facility] ical Branch SARS-COV-2 COVID-19 2020-08-08 Completed Unive rsity of MODERNA VACCINE 00:00:00 [place] [facility] ical Branch SARS-COV-2 COVID-19 2020-08-08 Completed Unive rsity of MODERNA VACCINE 00:00:00 [place] [facility] ical Branch SARS-COV-2 COVID-19 2020-08-08 Completed Unive rsity of MODERNA VACCINE 00:00:00 [place] [facility] ical Branch SARS-COV-2 COVID-19 2020-08-08 Completed Unive rsity of MODERNA VACCINE 00:00:00 [facility] ical Branch SARS-COV-2 COVID-19 2020-08-08 Completed Unive rsity of MODERNA VACCINE 00:00:00 [place] [facility] ical Branch SARS-COV-2 COVID-19 2020-08-08 Completed Unive rsity of MODERNA VACCINE 00:00:00 [place] [facility] ical Branch SARS-COV-2 COVID-19 2020-08-08 Completed Unive rsity of MODERNA VACCINE 00:00:00 [place] [facility] ical Branch SARS-COV-2 COVID-19 2020-08-08 Completed Unive rsity of MODERNA 12+ YRS 00:00:00 [place] [facility] ical VACCINE Branch MODERNA COVID-19 MRNA 2020-08-08 Completed Met hodist VACCINATION 00:00:00 [facility] SARS-COV-2 COVID-19 2020-07-11 Completed Unive rsity of MODERNA VACCINE 00:00:00 [place] [facility] ical Branch SARS-COV-2 COVID-19 2020-07-11 Completed Unive rsity of MODERNA VACCINE 00:00:00 [place] [facility] ical Branch SARS-COV-2 COVID-19 2020-07-11 Completed Unive rsity of MODERNA VACCINE 00:00:00 [place] [facility] ical Branch SARS-COV-2 COVID-19 2020-07-11 Completed Unive rsity of MODERNA VACCINE 00:00:00 [place] [facility] ical Branch SARS-COV-2 COVID-19 2020-07-11 Completed Unive rsity of MODERNA VACCINE 00:00:00 [place] [facility] ical Branch SARS-COV-2 COVID-19 2020-07-11 Completed Unive rsity of MODERNA VACCINE 00:00:00 [place] [facility] ical Branch SARS-COV-2 COVID-19 2020-07-11 Completed Unive rsity of MODERNA VACCINE 00:00:00 [place] [facility] ical Branch SARS-COV-2 COVID-19 2020-07-11 Completed Unive rsity of MODERNA VACCINE 00:00:00 [place] [facility] ical Branch SARS-COV-2 COVID-19 2020-07-11 Completed Unive rsity of MODERNA VACCINE 00:00:00 [place] [facility] ical Branch SARS-COV-2 COVID-19 2020-07-11 Completed Unive rsity of MODERNA VACCINE 00:00:00 [place] [facility] ical Branch SARS-COV-2 COVID-19 2020-07-11 Completed Unive rsity of MODERNA 12+ YRS 00:00:00 [facility] VACCINE Branch MODERNA COVID-19 MRNA 2020-07-11 Completed Met hodist VACCINATION 00:00:00 [facility] Influenza Virus 2019-08-11 Completed Universit y of Vaccine Quad .5 mL IM 00:00:00 [facility] MO [facility] Influenza Virus 2019-08-11 Completed Universit y of Vaccine [facility] .5 mL IM 00:00:00 [facility] Influenza Virus 2019-08-11 Completed Universit y of [facility]ine [facility] .5 mL IM 00:00:00 [facility] Influenza Virus 2019-08-11 Completed [facility]it y of [facility] .5 mL IM 00:00:00 [facility] MO [facility] Influenza Virus 2019-08-11 Completed Universit y of Vaccine Quad .5 mL IM 00:00:00 [facility] MO [facility] Influenza Virus 2019-08-11 Completed Universit y of Vaccine Quad .5 mL IM 00:00:00 [facility] Influenza Virus 2019-08-11 Completed [facility]it y of Vaccine [facility] .5 mL IM 00:00:00 [facility] Influenza Virus 2019-08-11 Completed Universit y of Vaccine Quad .5 mL IM 00:00:00 [facility] MO [facility] Influenza Virus 2019-08-11 Completed [facility]it y of Vaccine [facility] .5 mL IM 00:00:00 [facility] Influenza Virus 2019-08-11 Completed Universit y of Vaccine [facility] .5 mL IM 00:00:00 [facility] Influenza Virus 2019-08-11 Completed [facility]it y of Vaccine [facility] .5 mL IM 00:00:00 [facility] Influenza Virus 2019-08-11 Completed Universit y of Vaccine [facility] .5 mL IM 00:00:00 [facility] Influenza Virus 2019-08-11 Completed Universit y of Vaccine [facility] .5 mL IM 00:00:00 [facility] Influenza Virus 2019-08-11 Completed [facility]it y of Vaccine Quad .5 mL IM 00:00:00 [facility] FLUZONE QUAD PF 2019-08-11 Completed [facility] 00:00:00 Hospital Influenza () 2018-05-29 Completed [facility] Preservative Free 00:00:00 [facility] Influenza (IM) 2017-01-21 Completed [facility] Preservative Free 00:00:00 [facility]osp[facility] Influenza (IM) 2016-02-28 Completed [facility] Preservative Free 00:00:00 Hospita l Vital Signs Vital Name Observation Time Observation Value Comments Source Systolic blood 2022-02-15 21:55:49 128 mm[Hg] Univer sity of pressure [facility] Diastolic blood 2022-02-15 21:55:49 79 mm[Hg] [facility] Heart rate 2022-02-15 21:55:49 75 /min Universi ty of [facility] Respiratory rate 2022-02-15 21:55:49 19 /min [facility] [place] [facility] Oxygen saturation in 2022-02-15 21:55:49 99 /min University of Arterial blood by [facility] Pulse oximetry Branch Body temperature 2022-02-15 19:43:00 35.89 Sandee [facility] Body height 2022-02-15 19:43:00 162.6 cm [facility] Body weight 2022-02-15 19:43:00 113.399 kg [facility] BMI 2022-02-15 19:43:00 42.91 kg/m2 [facility] Oxygen saturation in 2021-09-29 03:00:00 97 /min University of Arterial blood by [facility] Pulse oximetry Branch Systolic blood 2021-09-29 03:00:00 126 mm[Hg] Univer sity of pressure [facility] Diastolic blood 2021-09-29 03:00:00 57 mm[Hg] Unive rsity of pressure [facility] Heart rate 2021-09-29 03:00:00 78 /min [facility] Body temperature 2021-09-29 03:00:00 37.28 Sandee [facility] Respiratory rate 2021-09-29 03:00:00 16 /min [facility] Body height 2021-09-29 03:00:00 162.6 cm [facility] Body weight 2021-09-29 03:00:00 117.935 kg [facility] BMI 2021-09-29 03:00:00 44.63 kg/m2 [facility] Systolic blood 2021-04-02 18:55:00 138 mm[Hg] Univer sity of pressure [facility] Diastolic blood 2021-04-02 18:55:00 104 mm[Hg] Unive rsity of pressure [facility] Heart rate 2021-04-02 18:55:00 74 /min [facility] Body temperature 2021-04-02 18:55:00 36.78 Sandee [facility] Respiratory rate 2021-04-02 18:55:00 18 /min [facility] Body weight 2021-04-02 18:55:00 122.471 kg [facility] [place] [facility] BMI 2021-04-02 18:55:00 46.35 kg/m2 [facility] Oxygen saturation in 2021-04-02 18:55:00 97 /min University of Arterial blood by [facility] Pulse oximetry Branch Systolic blood 2020-10-03 17:23:00 132 mm[Hg] Univer sity of pressure [facility] Diastolic blood 2020-10-03 17:23:00 56 mm[Hg] Unive rsity of pressure [facility] Heart rate 2020-10-03 17:23:00 88 /min [facility] Body temperature 2020-10-03 17:23:00 36.94 Sandee [facility] Respiratory rate 2020-10-03 17:23:00 18 /min [facility] Oxygen saturation in 2020-10-03 17:23:00 94 /min [facility] of Arterial blood by [facility] Pulse oximetry Branch Body weight 2020-09-30 08:11:00 121.473 kg [facility] BMI 2020-09-30 08:11:00 47.44 kg/m2 [facility] Body height 2020-09-29 03:33:00 160 cm [facility] Diastolic blood 2019-08-11 20:04:00 44 mm[Hg] Unive rsity of pressure [facility] Heart rate 2019-08-11 20:04:00 70 /min [facility] Body temperature 2019-08-11 20:04:00 36.61 Sandee [facility] Respiratory rate 2019-08-11 20:04:00 18 /min [facility] Oxygen saturation in 2019-08-11 20:04:00 91 /min [facility] Arterial blood by [facility] Pulse oximetry Branch Systolic blood 2019-08-11 20:04:00 107 mm[Hg] Univer sity of pressure [facility] Body height 2019-08-10 08:01:00 162.6 cm [facility] Body weight 2019-08-10 08:01:00 119.296 kg [facility] BMI 2019-08-10 08:01:00 45.14 kg/m2 [facility] Diastolic blood 2019-08-11 20:04:00 44 mm[Hg] Unive rsity of [facility] Heart rate 2019-08-11 20:04:00 70 /min [facility] Body temperature 2019-08-11 20:04:00 36.61 [facility] 2019-08-11 20:04:00 18 /min [facility] O[facility] in 2019-08-11 20:04:00 91 /min University Arterial blood by [facility] Pulse oximetry [place] Systolic blood 2019-08-11 20:04:00 107 mm[Hg] Univer sity of [facility] Body height 2019-08-10 08:01:00 162.6 cm [facility] Body weight 2019-08-10 08:01:00 119.296 kg [facility] BMI 2019-08-10 08:01:00 45.14 kg/m2 [facility] Systolic blood 2022-02-27 23:42:53 122 mm[Hg] Method [facility] pressure Diastolic blood 2022-02-27 23:42:53 53 mm[Hg] [facility] pressure Heart rate 2022-02-27 23:42:53 73 /min [facility] Body temperature 2022-02-27 23:42:53 37.06 Sandee [facility] Respiratory rate 2022-02-27 23:42:53 18 /min [facility] Oxygen saturation in 2022-02-27 23:42:53 98 /min [facility] Arterial blood by Pulse oximetry Body weight 2022-02-26 03:00:[address] [facility] BMI 2022-02-26 03:00:22 44.71 kg/m2 [facility] Body height 2022-02-26 02:56:[address] [facility] Systolic blood 2022-01-06 21:13:50 124 mm[Hg] Method [facility] pressure Diastolic blood 2022-01-06 21:13:50 58 mm[Hg] [facility] pressure Heart rate 2022-01-06 21:13:50 69 /min [facility] Body temperature 2022-01-06 21:13:50 35.89 Sandee [facility] Respiratory rate 2022-01-06 21:13:50 18 /min [facility] Oxygen saturation in 2022-01-06 21:13:50 95 /min [facility] Arterial blood by Pulse oximetry Body weight 2022-01-06 10:25:[address] [facility] BMI 2022-01-06 10:25:28 41.61 kg/m2 [facility] Body height 2022-01-02 04:15:[address] [facility] Systolic blood 2021-12-18 20:25:00 122 mm[Hg] [facility] pressure Diastolic blood 2021-12-18 20:25:00 57 mm[Hg] [facility] pressure Heart rate 2021-12-18 20:25:00 71 /min [facility] Body temperature 2021-12-18 20:25:00 36.94 Sandee [facility] Respiratory rate 2021-12-18 20:25:00 19 /min [facility] Oxygen saturation in 2021-12-18 20:25:00 94 /min [facility] Arterial blood by Pulse oximetry Body weight 2021-12-18 10:58:[address] [facility] BMI 2021-12-18 10:58:00 42.42 kg/m2 [facility] Systolic blood 2021-12-03 12:21:16 129 mm[Hg] Method [facility] pressure Diastolic blood 2021-12-03 12:21:16 58 mm[Hg] [facility] Hospital pressure Heart rate 2021-12-03 12:21:16 68 /min [facility] Body temperature 2021-12-03 12:21:16 36.11 Sandee [facility] Respiratory rate 2021-12-03 12:21:16 20 /min [facility] Oxygen saturation in 2021-12-03 12:21:16 95 /min [facility] Arterial blood by Pulse oximetry Body weight 2021-12-03 11:09:[address] [facility] BMI 2021-12-03 11:09:00 42.61 kg/m2 [facility] Body height 2021-10-21 16:02:[address] [facility] Procedures Procedure Date / Time Performing Source Performed Clinician XR SHOULDER 2+ VW LEFT 2022-02-27 Viviana Ward [facility] 15:01:00 Hospital CBC WITH PLATELET AND DIFFERENTIAL 2022-02-27 Dinakar, Leah stuart [facility]ism 10:39:00 [facility] PROTHROMBIN TIME WITH INR 2022-02-27 Dinakar, Jeremy Method ist 10:39:00 [facility] BASIC METABOLIC PANEL 2022-02-27 Dinakar, Jeremy [facility] 10:39:00 [facility] HEPATIC FUNCTION PANEL 2022-02-27 Dinakar, Jeremy [facility]ism 10:39:00 [facility] PHOSPHORUS LEVEL 2022-02-27 Dinakar, Jeremy [facility]ism 10:39:00 [facility] MAGNESIUM LEVEL 2022-02-27 Dinakar, Jeremy [facility]ism 10:39:00 [facility] ESTIMATED GFR 2022-02-27 Michelakar, Jeremy [facility]ism 10:39:00 [facility] SMEAR REVIEW 2022-02-27 DinakarJeremy [facility]ism 10:39:00 [facility] POC GLUCOSE 2022-02-27 Michelakar, Jeremy [facility] 09:38:00 [facility] CBC WITH PLATELET AND DIFFERENTIAL 2022-02-26 Dinakar, Leah stuart [facility] 11:53:00 [facility] PROTHROMBIN TIME WITH INR 2022-02-26 Michelakar, Jeremy Method ist 11:53:00 [facility] BASIC METABOLIC PANEL 2022-02-26 DinakarJeremy [facility]astrianism 11:53:00 [facility] HEPATIC FUNCTION PANEL 2022-02-26 DinakarJeremy Zoroastrianism 11:53:00 [facility] PHOSPHORUS LEVEL 2022-02-26 Dinakar, Jeremy [facility]ism 11:53:00 [facility] MAGNESIUM LEVEL 2022-02-26 Dinakar, Jeremy [facility]ism 11:53:00 [facility] HEMOGLOBIN A1C 2022-02-26 Dinakar, Jeremy [facility]ism 11:53:00 [facility] ESTIMATED GFR 2022-02-26 Michelakar, Jeremy [facility] 11:53:00 [facility] SMEAR REVIEW 2022-02-26 DinakarJeremy [facility]ism 11:53:00 [facility] AMYLASE LEVEL 2022-02-26 DinakarJeremy [facility]ism 11:53:00 [facility] GASTROINTESTINAL PANEL 2022-02-26 Myra Garcia ist 03:50:00 [facility] BLOOD CULTURE, AEROBIC & ANAEROBIC 2022-02-25 Laci Garcia [facility]ism 23:25:00 [facility] COVID-19 QUALITATIVE RT-PCR 2022-02-25 Stevo Hoskins odist 23:24:00 [facility] BLOOD CULTURE, AEROBIC & ANAEROBIC 2022-02-25 Laci Garcia [facility]astrianism 23:10:00 [facility] US ABDOMINAL LIMITED 2022-02-25 Myra Garciais t 21:58:[address] [facility] [address] ABDOMEN PELVIS W CONTRAST 2022-02-25 RehrerStevo hodist 21:28:38 [facility] ECG ED PRELIMINARY INTERPRETATION 2022-02-25 Stevo Hoskins 20:37:40 [facility] PROTHROMBIN TIME WITH INR 2022-02-25 WhitleyrerStevo ist 20:18:00 [facility] PARTIAL THROMBOPLASTIN TIME (PTT) 2022-02-25 WhitleyrerStevo 20:18:00 [facility] CBC WITH PLATELET AND DIFFERENTIAL 2022-02-25 WhitleyrerStevo 19:55:00 [facility] COMPREHENSIVE METABOLIC PANEL 2022-02-25 Stevo Hoskins thodist 19:55:00 [facility] LIPASE LEVEL 2022-02-25 RehrerStevo Zoroastrianism 19:55:00 [facility] ESTIMATED GFR 2022-02-25 RehrerStevo 19:55:00 [facility] ECG 12-LEAD 2022-02-25 RehrerStevo 18:42:27 [facility] RAPID INFLUENZA A/B 2022-02-15 Singer Florian Peggy o f 21:31:00 [facility] COVID-19 (ID NOW RAPID TESTING) 2022-02-15 Singer [facility] of 21:31:00 [facility] URINALYSIS 2022-02-15 [facility] 21:04[facility] [facility] [address] ABDOMEN PELVIS W CONTRAST 2022-02-15 Florian Ayers [facility] versity of 20:35:57 [facility] LIPASE 2022-02-15 Singer [facility] of 20:15:00 [facility] COMP. METABOLIC PANEL (79920) 2022-02-15 Florian Ayers iversity of 20:15:00 [facility] CBC WITH DIFF 2022-02-15 [place] [facility] of 20:15:00 [facility] CONSENT/REFUSAL FOR DIAGNOSIS AND 2022-02-15 Doctor Buck olmedo, [facility] 19:31:00 [place] [facility] PROTHROMBIN TIME WITH INR 2022-02-04 Carolin Sanches Method ist 11:20:00 Hospital PHOSPHORUS LEVEL 2022-02-04 Carolin Sanches [facility] 11:20:00 Hospital MAGNESIUM LEVEL 2022-02-04 Carolin Sanches [facility] 11:20:00 Hospital BASIC METABOLIC PANEL 2022-02-04 Carolin Sanches [facility] 11:20:00 Hospital HEPATIC FUNCTION PANEL 2022-02-04 Carolin Sanches [facility] 11:20:00 Hospital CBC HEMOGRAM 2022-02-04 Carolin Sanches [facility] 11:20:00 Hospital ESTIMATED GFR 2022-02-04 Carolin Sanches [facility] 11:20:00 Hospital SMEAR REVIEW 2022-02-04 Carolin Sanches [facility] 11:20:00 [facility] UPPER GI TRACT, ENDOSCOPIC 2022-02-03 Carolin Sanches Pr thodist 19:36:00 Hospital PROTHROMBIN TIME WITH INR 2022-02-03 Carolin Sanches Method ist 09:29:00 Hospital PHOSPHORUS LEVEL 2022-02-03 Carolin Sanches [facility] 09:29:00 Hospital MAGNESIUM LEVEL 2022-02-03 Carolin Sanches [facility] 09:29:00 Hospital BASIC METABOLIC PANEL 2022-02-03 Carolin Sanches [facility] 09:29:00 Hospital HEPATIC FUNCTION PANEL 2022-02-03 Carolin Sanches [facility] 09:29:00 Hospital CBC HEMOGRAM 2022-02-03 Carolin Sanches [facility] 09:29:00 Hospital ESTIMATED GFR 2022-02-03 Nakia Cruz [facility] 09:29:00 Hospital SMEAR REVIEW 2022-02-03 Nakia Cruz 09:29:00 Hospital PROTHROMBIN TIME WITH INR 2022-02-02 Carolin Sanches Method ist 09:08:00 Hospital PHOSPHORUS LEVEL 2022-02-02 Carolin Sanches [facility] 09:08:00 Hospital MAGNESIUM LEVEL 2022-02-02 Carolin Sanches [facility] 09:08:00 Hospital BASIC METABOLIC PANEL 2022-02-02 Carolin Sanches [facility] 09:08:00 Hospital HEPATIC FUNCTION PANEL 2022-02-02 Carolin Sanches [facility] 09:08:00 Hospital CBC HEMOGRAM 2022-02-02 Carolin Sanches [facility] 09:08:00 Hospital ESTIMATED GFR 2022-02-02 Nakia Cruzist 09:08:00 Hospital SMEAR REVIEW 2022-02-02 Nakia Cruz [facility] 09:08:00 Hospital XR ABDOMEN 1 VW PORTABLE 2022-02-01 Myra Garcia odist 22:39:25 [place] [id number] ANTI-SPIKE IGG ANTIBODY 2022-02-01 Deepak Ward [facility] TITER 11:37:00 Hospital CBC WITH PLATELET AND DIFFERENTIAL 2022-02-01 Deepak Ward [facility] 11:37:00 Hospital PROTHROMBIN TIME WITH INR 2022-02-01 Carolin Sanches Method ist 11:37:00 [facility] COMPREHENSIVE METABOLIC PANEL 2022-02-01 Bebeto Ward ethodist 11:37:00 Hospital PHOSPHORUS LEVEL 2022-02-01 Carolin Sanches [facility] 11:37:00 Hospital MAGNESIUM LEVEL 2022-02-01 Carolin Sanches [facility] 11:37:00 Hospital THYROID STIMULATING HORMONE 2022-02-01 Bebeto Ward Met hodist 11:37:00 Hospital T4 2022-02-01 Bebeto Ward [facility] 11:37:00 Hospital VITAMIN D 25 HYDROXY LEVEL 2022-02-01 Bebeto Ward Meth odist 11:37:00 [place] [id number] SEROLOGY PATIENT 2022-02-01 Bebeto Ward Met hodist SURVEILLANCE 11:37:00 Hospital ESTIMATED GFR 2022-02-01 Bebeto Ward 11:37:00 Hospital SMEAR REVIEW 2022-02-01 Bebeto Ward 11:37:00 Hospital COVID-19 QUALITATIVE RT-PCR 2022-02-01 June Clark 03:59:00 [facility] LACTIC ACID LEVEL, SEPSIS - NOW 2022-02-01 Bebeto Ward AND REPEAT 2X EVERY 3 HOURS 03:45:[address] ABDOMEN PELVIS W CONTRAST 2022-02-01 June Clark thodist 02:53:55 [facility] BLOOD CULTURE, AEROBIC & ANAEROBIC 2022-02-01 Johnna Clark 02:09:00 [facility] URINE CULTURE 2022-02-01 June Clark 01:50:00 [facility] URINALYSIS SCREEN AND MICROSCOPY, 2022-02-01 Cristopher Clarkist WITH REFLEX TO CULTURE 01:50:00 [facility] COMPREHENSIVE METABOLIC PANEL 2022-02-01 Rolando Olivier 01:47:00 Hospital LIPASE LEVEL 2022-02-01 Rolando Olivier 01:47:00 Hospital ESTIMATED GFR 2022-02-01 Rolando Olivier 01:47:00 Hospital LACTIC ACID LEVEL, SEPSIS - NOW 2022-02-01 Bebeto Ward AND REPEAT 2X EVERY 3 HOURS 01:47:00 [facility] ital PROTHROMBIN TIME WITH INR 2022-02-01 June Clark Metho dist 01:47:00 [facility] PARTIAL THROMBOPLASTIN TIME (PTT) 2022-02-01 Cristopher Clark 01:47:00 [facility] AMMONIA LEVEL 2022-02-01 June Clark 01:47:00 [facility] BLOOD CULTURE, AEROBIC & ANAEROBIC 2022-02-01 Johnna Clark 01:45:00 [facility] ECG ED PRELIMINARY INTERPRETATION 2022-02-01 Cristopher Clark 01:18:19 [facility] URINE CULTURE 2022-02-01 Rolando Olivier 01:17:00 Hospital CBC WITH PLATELET AND DIFFERENTIAL 2022-02-01 Rolando Olivier [facility] 01:17:00 Hospital URINALYSIS SCREEN AND MICROSCOPY, 2022-02-01 Rolando Olivier [facility]ism WITH REFLEX TO CULTURE 01:17:00 Hospital SMEAR REVIEW 2022-02-01 Rolando Olivier [facility] 01:17:00 Hospital ECG 12-LEAD 2022-01-31 Rolando Olivier [facility] 23:14:20 Hospital POC GLUCOSE 2022-01-06 Jeremy Sandoval 17:53:00 [facility] HC COMPLETE BLD COUNT W/AUTO DIFF 2022-01-06 Nakia Cruz 09:49:00 Hospital PROTHROMBIN TIME WITH INR 2022-01-06 Nakia Cruz ist 09:49:00 [facility] COMPREHENSIVE METABOLIC PANEL 2022-01-06 Jeremy Sandoval Me thodist 09:49:00 [facility] ESTIMATED GFR 2022-01-06 Jeremy Sandoval 09:49:00 [facility] SMEAR REVIEW 2022-01-06 Nakia Cruz 09:49:00 Hospital SURGICAL PATHOLOGY REQUEST 2022-01-05 Jeremy Sandoval Metho dist 21:05:00 [facility] ESOPHAGOGASTRODUODENOSCOPY (EGD) 2022-01-05 Elias Guzman 20:55:00 Hospital HC COMPLETE BLD COUNT W/AUTO DIFF 2022-01-05 Nakia Cruz 09:38:00 Hospital PROTHROMBIN TIME WITH INR 2022-01-05 Nakia Cruz ist 09:38:00 [facility] COMPREHENSIVE METABOLIC PANEL 2022-01-05 Nakia Cruz thodist 09:38:00 Hospital PHOSPHORUS LEVEL 2022-01-05 Nakia Cruzist 09:38:00 Hospital MAGNESIUM LEVEL 2022-01-05 Nakia Cruz 09:38:00 Hospital ESTIMATED GFR 2022-01-05 Nakia Cruz 09:38:00 Hospital SMEAR REVIEW 2022-01-05 Nakia Cruz 09:38:00 Hospital XR ABDOMEN 1 VW PORTABLE 2022-01-[address] 16:05:00 [facility] HC COMPLETE BLD COUNT W/AUTO DIFF 2022-01-04 Nakia Cruz 09:33:00 Hospital PROTHROMBIN TIME WITH INR 2022-01-04 Nakia Cruz Method ist 09:33:00 Hospital COMPREHENSIVE METABOLIC PANEL 2022-01-04 Nakia Cruz thodist 09:33:00 Hospital PHOSPHORUS LEVEL 2022-01-04 Nakia Cruz [facility] 09:33:00 Hospital MAGNESIUM LEVEL 2022-01-04 Nakia Cruz [facility] 09:33:00 Hospital ESTIMATED GFR 2022-01-04 Nakia Cruzist 09:33:00 Hospital SMEAR REVIEW 2022-01-04 Nakia Cruzist 09:33:00 Hospital XR ABDOMEN 1 VW PORTABLE 2022-01-[address] 16:09:48 [facility] COVID-19 ANTI-SPIKE IGG ANTIBODY 2022-01-03 Jeremy Sandoval TITER 09:01:00 [facility] HC COMPLETE BLD COUNT W/AUTO DIFF 2022-01-03 Nakia Cruz 09:01:00 Hospital PROTHROMBIN TIME WITH INR 2022-01-03 Nakia Cruz ist 09:01:00 Hospital COMPREHENSIVE METABOLIC PANEL 2022-01-03 Nakia Cruz thodist 09:01:00 Hospital PHOSPHORUS LEVEL 2022-01-03 Nakia Cruz 09:01:00 Hospital MAGNESIUM LEVEL 2022-01-03 Nakia Cruz 09:01:00 Hospital HEMOGLOBIN A1C 2022-01-03 Nakia Cruz 09:01:00 Hospital THYROID STIMULATING HORMONE 2022-01-03 Nakia Cruz odist 09:01:00 Hospital T4 2022-01-03 Nakia Cruz 09:01:00 Hospital VITAMIN D 25 HYDROXY LEVEL 2022-01-03 Nakia Cruzo dist 09:01:00 Hospital COVID-19 SEROLOGY PATIENT 2022-01-03 Jeremy Sandoval ist SURVEILLANCE 09:01:00 [facility] AMYLASE LEVEL 2022-01-03 Cassandra Johnsonist 09:01:00 [facility] ESTIMATED GFR 2022-01-03 Nakia Cruz 09:01:00 Hospital SMEAR REVIEW 2022-01-03 Nakia Cruz 09:01:00 Hospital LIPASE LEVEL 2022-01-03 Nakia Cruz 09:01:00 Hospital XR ABDOMEN 1 VW PORTABLE 2022-01-02 Cassandra Johnson odist 15:46:00 [facility] URINALYSIS SCREEN AND MICROSCOPY, 2022-01-02 Vandana Bernstein WITH REFLEX TO CULTURE 10:37:00 [facility] HCG QUALITATIVE, URINE SCREEN 2022-01-02 Vandana Bernstein Me thodist 10:37:00 [facility] URINE CULTURE 2022-01-02 Vandana Bernsteinist 10:34:00 [facility] COVID-19 QUALITATIVE RT-PCR 2022-01-02 Vandana Bernstein odist 10:26:[address] [facility] [address] ABDOMEN PELVIS W CONTRAST 2022-01-02 Vandana Bernstein Met hodist 08:56:21 [facility] HC COMPLETE BLD COUNT W/AUTO DIFF 2022-01-02 Vandana Bernstein 05:47:00 [facility] COMPREHENSIVE METABOLIC PANEL 2022-01-02 Vandana Bernstein thodist 05:47:00 [facility] LIPASE LEVEL 2022-01-02 Vandana Bernstein 05:47:00 [facility] PROTHROMBIN TIME WITH INR 2022-01-02 Vandana Bernstein Method ist 05:47:00 [facility] PARTIAL THROMBOPLASTIN TIME (PTT) 2022-01-02 Vandana Bernstein 05:47:00 [facility] ESTIMATED GFR 2022-01-02 Vandana Bernstein 05:47:00 [facility] SMEAR REVIEW 2022-01-02 Vandana Bernsteinist 05:47:00 [facility] HC COMPLETE BLD COUNT W/AUTO DIFF 2021-12-18 Jose Sandoval Zoroastrianism 10:19:00 [facility] PROTHROMBIN TIME WITH INR 2021-12-18 Jeremy Sandoval Method ist 10:19:00 [facility] BASIC METABOLIC PANEL 2021-12-18 Jeremy Sandoval Zoroastrianism 10:19:00 [facility] HEPATIC FUNCTION PANEL 2021-12-18 Dinakar, Jeremy Zoroastrianism 10:19:00 [facility] PHOSPHORUS LEVEL 2021-12-18 Dinakar, Jeremy Zoroastrianism 10:19:00 [facility] MAGNESIUM LEVEL 2021-12-18 Dinakar, Jeremy Zoroastrianism 10:19:00 [facility] ESTIMATED GFR 2021-12-18 Dinakar, Jeremy Zoroastrianism 10:19:00 [facility] SMEAR REVIEW 2021-12-18 Dinakar, Jeremy Zoroastrianism 10:19:00 [facility] HC COMPLETE BLD COUNT W/AUTO DIFF 2021-12-17 Dinakar, Jose h Zoroastrianism 11:45:00 [facility] PROTHROMBIN TIME WITH INR 2021-12-17 Dinakar, Jeremy Method ist 11:45:00 [facility] BASIC METABOLIC PANEL 2021-12-17 Dinakar, Jeremy Zoroastrianism 11:45:00 [facility] HEPATIC FUNCTION PANEL 2021-12-17 Dinakar, Jeremy Zoroastrianism 11:45:00 [facility] PHOSPHORUS LEVEL 2021-12-17 Dinakar, Jeremy Zoroastrianism 11:45:00 [facility] MAGNESIUM LEVEL 2021-12-17 Dinakar, Jeremy Zoroastrianism 11:45:00 [facility] ESTIMATED GFR 2021-12-17 Dinakar, Jeremy Zoroastrianism 11:45:00 [facility] SMEAR REVIEW 2021-12-17 Dinakar, Jeremy Zoroastrianism 11:45:00 [facility] NM GI BLEEDING STUDY 2021-12-16 Elias Guzman Zoroastrianism 20:06:11 [facility] MRI CHOLANGIOGRAM WO CONTRAST 2021-12-16 Elias Guzman thodist 13:57:00 Hospital MRI ABDOMEN W WO CONTRAST 2021-12-16 Elias Guzman Method ist 13:56:00 Hospital HC COMPLETE BLD COUNT W/AUTO DIFF 2021-12-16 DinakarJose Zoroastrianism 11:26:00 [facility] PROTHROMBIN TIME WITH INR 2021-12-16 Dinakar, Jeremy Method ist 11:26:00 [facility] BASIC METABOLIC PANEL 2021-12-16 Dinakar, Jeremy Zoroastrianism 11:26:00 [facility] HEPATIC FUNCTION PANEL 2021-12-16 Dinakar, Jeremy Zoroastrianism 11:26:00 [facility] PHOSPHORUS LEVEL 2021-12-16 Dinakar, Jeremy Zoroastrianism 11:26:00 [facility] MAGNESIUM LEVEL 2021-12-16 Dinakar, Jeremy Zoroastrianism 11:26:00 [facility] ESTIMATED GFR 2021-12-16 Dinakar, Jeremy Zoroastrianism 11:26:00 [facility] SMEAR REVIEW 2021-12-16 Dinhomar, Jeremy Zoroastrianism 11:26:00 [facility] BASIC METABOLIC PANEL 2021-12-15 Ward, Bebeto Zoroastrianism 12:30:00 Hospital ESTIMATED GFR 2021-12-15 Ward, Bebeto Zoroastrianism 12:30:00 Hospital HEPATIC FUNCTION PANEL 2021-12-15 WardBebteo sanches Methodis t 12:30:00 Hospital MAGNESIUM LEVEL 2021-12-15 Ward, Bebeto Zoroastrianism 12:30:00 Hospital PHOSPHORUS LEVEL 2021-12-15 Ward Bebeto Zoroastrianism 12:30:00 Hospital CBC HEMOGRAM 2021-12-15 Bebeto Ward Zoroastrianism 12:30:00 Hospital PROTHROMBIN TIME WITH INR 2021-12-15 WardBebeto graves Metho dist 12:30:00 Hospital C-REACTIVE PROTEIN 2021-12-15 WardBebeto graves Zoroastrianism 12:30:00 Hospital SMEAR REVIEW 2021-12-15 WardBebeto graves Zoroastrianism 12:30:00 Hospital CBC WITH PLATELET AND DIFFERENTIAL 2021-12-15 Leah Sandoval Zoroastrianism 11:14:00 [facility] PROTHROMBIN TIME WITH INR 2021-12-15 Jeremy Sandoval Method ist 11:14:00 [facility] BASIC METABOLIC PANEL 2021-12-15 DinakarJeremy Zoroastrianism 11:14:00 [facility] HEPATIC FUNCTION PANEL 2021-12-15 Dinakar, Jeremy Zoroastrianism 11:14:00 [facility] PHOSPHORUS LEVEL 2021-12-15 Dinakar, Jeremy Zoroastrianism 11:14:00 [facility] MAGNESIUM LEVEL 2021-12-15 Dinakar, Jeremy Zoroastrianism 11:14:00 [facility] C-REACTIVE PROTEIN 2021-12-15 WardBebeto Zoroastrianism 11:14:00 Hospital ESTIMATED GFR 2021-12-15 Jeremy Sandoval Zoroastrianism 11:14:00 [facility] HC COMPLETE BLD COUNT W/AUTO DIFF 2021-12-14 DinarJose Zoroastrianism 10:39:00 [facility] PROTHROMBIN TIME WITH INR 2021-12-14 Jeremy Sandoval Method ist 10:39:00 [facility] BASIC METABOLIC PANEL 2021-12-14 DinarJeremy Zoroastrianism 10:39:00 [facility] HEPATIC FUNCTION PANEL 2021-12-14 Jeremy Sandoval Zoroastrianism 10:39:00 [facility] PHOSPHORUS LEVEL 2021-12-14 DinarJeremy Zoroastrianism 10:39:00 [facility] MAGNESIUM LEVEL 2021-12-14 Jeremy Sandoval Zoroastrianism 10:39:00 [facility] C-REACTIVE PROTEIN 2021-12-14 WardBebeto sanches Zoroastrianism 10:39:00 Hospital FERRITIN LEVEL 2021-12-14 WardBebeto sanches Zoroastrianism 10:39:00 Hospital FOLATE LEVEL 2021-12-14 Bebeto Ward Zoroastrianism 10:39:00 Hospital HAPTOGLOBIN 2021-12-14 WardBebeto sanches Zoroastrianism 10:39:00 Hospital VITAMIN B12 LEVEL 2021-12-14 Bebeto Ward Zoroastrianism 10:39:00 Hospital TOTAL IRON BINDING CAPACITY 2021-12-14 Bebeto Ward hodnohelia 10:39:00 Hospital RETICULOCYTE COUNT 2021-12-14 WardBebeto sanches Zoroastrianism 10:39:00 Hospital LDH 2021-12-14 WardBebeto sanches Zoroastrianism 10:39:00 Hospital ESTIMATED GFR 2021-12-14 Jeremy Sandoval Zoroastrianism 10:39:00 [facility] VENIPUNC NEED PHYS SKILL,DX OR RX 2021-12-13 Latanya Ring Zoroastrianism 21:45:17 Hospital HC COMPLETE BLD COUNT W/AUTO DIFF 2021-12-13 Jose Sandoval Zoroastrianism 07:40:00 [facility] PROTHROMBIN TIME WITH INR 2021-12-13 Jeremy Sandoval Method ist 07:40:00 [facility] BASIC METABOLIC PANEL 2021-12-13 DinarJeremy Zoroastrianism 07:40:00 [facility] HEPATIC FUNCTION PANEL 2021-12-13 Jeremy Sandoval 07:40:00 [facility] PHOSPHORUS LEVEL 2021-12-13 Jeremy Sandoval 07:40:00 [facility] MAGNESIUM LEVEL 2021-12-13 Jeremy Sandoval 07:40:00 [facility] HEMOGLOBIN A1C 2021-12-13 Jeremy Sandoval 07:40:00 [facility] C-REACTIVE PROTEIN 2021-12-13 Bebeto Ward 07:40:00 Hospital SEDIMENTATION RATE 2021-12-13 Bebeto Ward 07:40:00 Hospital LDH 2021-12-13 Bebeto Ward 07:40:00 Hospital LIPASE LEVEL 2021-12-13 Bebeto Ward 07:40:00 Hospital GGT 2021-12-13 Bebeto Ward 07:40:00 Hospital ESTIMATED GFR 2021-12-13 Jeremy Sandoval 07:40:00 [facility] SMEAR REVIEW 2021-12-13 Jeremy Sandoval 07:40:00 [facility] BLOOD CULTURE, AEROBIC & ANAEROBIC 2021-12-12 Leah Sandoval 12:00:00 [facility] BLOOD CULTURE, AEROBIC & ANAEROBIC 2021-12-12 Leah Sandoval 11:42:00 [facility] COVID-19 ANTI-SPIKE IGG ANTIBODY 2021-12-12 Jeremy Sandoval TITER 11:40:00 [facility] TROPONIN T 2021-12-12 Stevo Hoskins 11:40:00 [facility] HC COMPLETE BLD COUNT W/AUTO DIFF 2021-12-12 Jose Sandoval 11:40:00 [facility] COVID-19 SEROLOGY PATIENT 2021-12-12 Jeremy Sandoval ist SURVEILLANCE 11:40:00 [facility] SMEAR REVIEW 2021-12-12 Jeremy Sandoval 11:40:00 [facility] TROPONIN T 2021-12-12 RehreStevo potts 09:10:00 [facility] LACTIC ACID LEVEL, SEPSIS - NOW 2021-12-12 RehrerStevo AND REPEAT 2X EVERY 3 HOURS 09:10:[address] [facility] [address] ABDOMEN PELVIS W CONTRAST 2021-12-12 Rehrer, Stevo Frias hodist 06:58:00 [facility] ECG ED PRELIMINARY INTERPRETATION 2021-12-12 Rehrer, Stevo Rileyist 05:33:45 [facility] URINE CULTURE 2021-12-12 Rehrer, Stevo Rileyist 04:28:00 [facility] URINALYSIS SCREEN AND MICROSCOPY, 2021-12-12 Rehrer, Stevo Kyle WITH REFLEX TO CULTURE 03:45:00 [facility] COVID-19 QUALITATIVE RT-PCR 2021-12-12 Rehrer, Stevo Meth odist 03:30:00 [facility] PROTHROMBIN TIME WITH INR 2021-12-12 Rehrer, Stevo Method ist 03:30:00 [facility] PARTIAL THROMBOPLASTIN TIME (PTT) 2021-12-12 Rehrer, Stevo Rileyist 03:30:00 [facility] LIPASE LEVEL 2021-12-12 Rehrer, Stevo Rileyist 03:30:00 [facility] TROPONIN T 2021-12-12 Rehrer, Stevo Rileyist 03:30:00 [facility] B NATRIURETIC PEPTIDE 2021-12-12 Rehrer, Stevo Rileyist 03:30:00 [facility] TYPE AND SCREEN 2021-12-12 Rehrer, Stevo Rileyist 03:30:00 [facility] LACTIC ACID LEVEL, SEPSIS - NOW 2021-12-12 Tamie Silveira AND REPEAT 2X EVERY 3 HOURS 03:30:00 [facility] ECG 12-LEAD 2021-12-12 RehrerStevo 03:08:12 [facility] HC COMPLETE BLD COUNT W/AUTO DIFF 2021-12-11 Tamie Silveira 22:48:00 Hospital COMPREHENSIVE METABOLIC PANEL 2021-12-11 Tamei Silveira thodist 22:48:00 Hospital LIPASE LEVEL 2021-12-11 Tamie Silveira 22:48:00 Hospital LACTIC ACID LEVEL, SEPSIS - NOW 2021-12-11 Tamie Silveira AND REPEAT 2X EVERY 3 HOURS 22:48:00 [facility] ESTIMATED GFR 2021-12-11 Tamie Silveira 22:48:00 Hospital SMEAR REVIEW 2021-12-11 Tamie Silveira Zoroastrianism 22:48:00 Hospital HC COMPLETE BLD COUNT W/AUTO DIFF 2021-12-03 Dinakar, Jose vallejo Zoroastrianism 11:14:00 [facility] PROTHROMBIN TIME WITH INR 2021-12-03 Dinakar, Jeremy Method ist 11:14:00 [facility] BASIC METABOLIC PANEL 2021-12-03 Dinakar, Jeremy Zoroastrianism 11:14:00 [facility] HEPATIC FUNCTION PANEL 2021-12-03 Dinakar, Jeremy Zoroastrianism 11:14:00 [facility] PHOSPHORUS LEVEL 2021-12-03 Dinakar, Jeremy Zoroastrianism 11:14:00 [facility] MAGNESIUM LEVEL 2021-12-03 Dinakar, Jeremy Zoroastrianism 11:14:00 [facility] ESTIMATED GFR 2021-12-03 Dinakar, Jeremy Zoroastrianism 11:14:00 [facility] SMEAR REVIEW 2021-12-03 Dinakar, Jeremy Zoroastrianism 11:14:00 [facility] US DUPLEX VENOUS UPPER EXTREMITY 2021-12-02 Nakia Cruz Zoroastrianism LEFT 18:10:00 Hospital HC COMPLETE BLD COUNT W/AUTO DIFF 2021-12-02 Dinakar, Jose h Zoroastrianism 09:59:00 [facility] PROTHROMBIN TIME WITH INR 2021-12-02 Dinakar, Jeremy Method ist 09:59:00 [facility] BASIC METABOLIC PANEL 2021-12-02 Dinakar, Jeremy Zoroastrianism 09:59:00 [facility] HEPATIC FUNCTION PANEL 2021-12-02 Dinakar, Jeremy Zoroastrianism 09:59:00 [facility] PHOSPHORUS LEVEL 2021-12-02 Dinakar, Jeremy Zoroastrianism 09:59:00 [facility] MAGNESIUM LEVEL 2021-12-02 Dinakar, Jeremy Zoroastrianism 09:59:00 [facility] ESTIMATED GFR 2021-12-02 Dinakar, Jeremy Zoroastrianism 09:59:00 [facility] HC COMPLETE BLD COUNT W/AUTO DIFF 2021-12-01 Dinakar, Satis h Zoroastrianism 10:22:00 [facility] PROTHROMBIN TIME WITH INR 2021-12-01 Dinakar, Jeremy Method ist 10:22:00 [facility] BASIC METABOLIC PANEL 2021-12-01 DinakarJeremy Zoroastrianism 10:22:00 [facility] HEPATIC FUNCTION PANEL 2021-12-01 Dinakar, Jeremy Zoroastrianism 10:22:00 [facility] PHOSPHORUS LEVEL 2021-12-01 Dinakar, Jeremy Zoroastrianism 10:22:00 [facility] MAGNESIUM LEVEL 2021-12-01 Dinakar, Jeremy Zoroastrianism 10:22:00 [facility] ESTIMATED GFR 2021-12-01 Dinakar, Jeremy Zoroastrianism 10:22:00 [facility] SMEAR REVIEW 2021-12-01 Dinakar, Jeremy Zoroastrianism 10:22:00 [facility] ESOPHAGOGASTRODUODENOSCOPY (EGD) 2021-11-30 Elias Guzman Zoroastrianism 19:49:00 Hospital HC COMPLETE BLD COUNT W/AUTO DIFF 2021-11-30 Dinakar, Jose h Zoroastrianism 10:53:00 [facility] PROTHROMBIN TIME WITH INR 2021-11-30 MichelakarJeremy Method ist 10:53:00 [facility] BASIC METABOLIC PANEL 2021-11-30 Dinakar, Jeremy Zoroastrianism 10:53:00 [facility] HEPATIC FUNCTION PANEL 2021-11-30 Dinakar, Jeremy Zoroastrianism 10:53:00 [facility] PHOSPHORUS LEVEL 2021-11-30 Dinakar, Jeremy Zoroastrianism 10:53:00 [facility] MAGNESIUM LEVEL 2021-11-30 Dinakar, Jeremy Zoroastrianism 10:53:00 [facility] ESTIMATED GFR 2021-11-30 Dinakar, Jeremy Zoroastrianism 10:53:00 [facility] SMEAR REVIEW 2021-11-30 Dinakar, Jeremy Zoroastrianism 10:53:00 [facility] HC COMPLETE BLD COUNT W/AUTO DIFF 2021-11-29 Dinakar, Satis h Zoroastrianism 10:50:00 [facility] PROTHROMBIN TIME WITH INR 2021-11-29 MichelakarJeremy Method ist 10:50:00 [facility] BASIC METABOLIC PANEL 2021-11-29 Dinakar, Jeremy Zoroastrianism 10:50:00 [facility] HEPATIC FUNCTION PANEL 2021-11-29 Dinakar, Jeremy Zoroastrianism 10:50:00 [facility] PHOSPHORUS LEVEL 2021-11-29 Dinakar, Jeremy Zoroastrianism 10:50:00 [facility] MAGNESIUM LEVEL 2021-11-29 Dinakar, Jeremy Zoroastrianism 10:50:00 [facility] ESTIMATED GFR 2021-11-29 Dinakar, Jeremy Zoroastrianism 10:50:00 [facility] SMEAR REVIEW 2021-11-29 Dinakar, Jeremy Zoroastrianism 10:50:00 [facility] CBC WITH PLATELET AND DIFFERENTIAL 2021-11-28 Dinakar, Leah stuart Zoroastrianism 09:28:00 [facility] PROTHROMBIN TIME WITH INR 2021-11-28 Dinakar, Jeremy Method ist 09:28:00 [facility] BASIC METABOLIC PANEL 2021-11-28 Dinakar, Jeremy Zoroastrianism 09:28:00 [facility] HEPATIC FUNCTION PANEL 2021-11-28 Dinakar, Jeremy Zoroastrianism 09:28:00 [facility] PHOSPHORUS LEVEL 2021-11-28 Dinakar, Jeremy Zoroastrianism 09:28:00 [facility] MAGNESIUM LEVEL 2021-11-28 Dinakar, Jeremy Zoroastrianism 09:28:00 [facility] ESTIMATED GFR 2021-11-28 Dinakar, Jeremy Zoroastrianism 09:28:00 [facility] OCCULT BLOOD, STOOL 2021-11-27 Jefferson Skelton Zoroastrianism 23:26:00 Hospital XR ABDOMEN 1 VW PORTABLE 2021-11-27 Myra Garcia odist 20:25:00 [facility] HC COMPLETE BLD COUNT W/AUTO DIFF 2021-11-27 Michelakar, Jose vallejo Zoroastrianism 09:07:00 [facility] PROTHROMBIN TIME WITH INR 2021-11-27 Michelakar, Jeremy Method ist 09:07:00 [facility] BASIC METABOLIC PANEL 2021-11-27 Dinakar, Jeremy Zoroastrianism 09:07:00 [facility] HEPATIC FUNCTION PANEL 2021-11-27 Dinakar, Jeremy Zoroastrianism 09:07:00 [facility] PHOSPHORUS LEVEL 2021-11-27 Dinakar, Jeremy Zoroastrianism 09:07:00 [facility] MAGNESIUM LEVEL 2021-11-27 Dinakar, Jeremy Zoroastrianism 09:07:00 [facility] HEMOGLOBIN A1C 2021-11-27 Dinakar, Jeremy Zoroastrianism 09:07:00 [facility] ESTIMATED GFR 2021-11-27 Jeremy Sandoval 09:07:00 [facility] SMEAR REVIEW 2021-11-27 Jeremy Sandoval Zoroastrianism 09:07:00 [facility] BLOOD CULTURE, AEROBIC & ANAEROBIC 2021-11-27 Leah Sandoval 04:03:00 [facility] COVID-19 ANTI-SPIKE IGG ANTIBODY 2021-11-27 Jeremy Sandoval TITER 04:03:00 [facility] COVID-19 SEROLOGY PATIENT 2021-11-27 Jeremy Sandoval ist SURVEILLANCE 04:03:00 [facility] CTA ABD/PEL FOR BLEEDING 2021-11-27 Jefferson Skelton Metho dist 01:38:34 Hospital HEMOGLOBIN & HEMATOCRIT 2021-11-27 Jefferson Skelton Method ist 01:34:00 Hospital SMEAR REVIEW 2021-11-27 Jefferson Skeltonist 01:34:00 Hospital RESPIRATORY PATHOGEN PANEL WITH 2021-11-27 Jefferson Skelton [place] RT-PCR 00:58:00 Hospital TYPE AND SCREEN 2021-11-27 Jefferson Skeltonist 00:30:00 Hospital PROTHROMBIN TIME WITH INR 2021-11-27 Jefferson Skelton odist 00:30:00 Hospital AMMONIA LEVEL 2021-11-27 Jefferson Skeltonist 00:30:00 Hospital ECG 12-LEAD 2021-11-27 Jefferosn Skeltonist 00:29:32 Hospital ECG ED PRELIMINARY INTERPRETATION 2021-11-27 Jefferson Skelton Zoroastrianism 00:04:12 Hospital HC COMPLETE BLD COUNT W/AUTO DIFF 2021-11-26 Jefferson Skelton Zoroastrianism 21:32:00 Hospital COMPREHENSIVE METABOLIC PANEL 2021-11-26 Jefferson Skelton 21:32:00 Hospital LIPASE LEVEL 2021-11-26 Jefferson Skeltonist 21:32:00 Hospital HCG QUALITATIVE, SERUM SCREEN 2021-11-26 Jefferson Skelton Zoroastrianism 21:32:00 Hospital ESTIMATED GFR 2021-11-26 Pasquale Cabrales Zoroastrianism 21:32:00 [facility] SMEAR REVIEW 2021-11-26 Pasquale Cabrales Zoroastrianism 21:32:00 [facility] HC COMPLETE BLD COUNT W/AUTO DIFF 2021-10-26 Nakia Cruz 11:26:00 Hospital PROTHROMBIN TIME WITH INR 2021-10-26 Nakia Cruz Method ist 11:26:00 [facility] BASIC METABOLIC PANEL 2021-10-26 Anand Arora Zoroastrianism 11:26:00 [facility] ESTIMATED GFR 2021-10-26 Anand Arora Zoroastrianism 11:26:00 [facility] SMEAR REVIEW 2021-10-26 Nakia Cruz 11:26:00 [facility] HC COMPLETE BLD COUNT W/AUTO DIFF 2021-10-25 Nakia Cruz 09:30:00 Hospital PROTHROMBIN TIME WITH INR 2021-10-25 Nakia Cruz Method ist 09:30:00 [facility] COMPREHENSIVE METABOLIC PANEL 2021-10-25 Nakia Cruz thodist 09:30:00 Hospital ESTIMATED GFR 2021-10-25 Nakia Cruz 09:30:00 Hospital MAGNESIUM LEVEL 2021-10-25 Nakia Cruz 09:30:00 Hospital PHOSPHORUS LEVEL 2021-10-25 Nakia Cruz 09:30:00 Hospital BILIRUBIN DIRECT 2021-10-25 Nakia Cruz 09:30:00 Hospital SMEAR REVIEW 2021-10-25 Nakia Cruz 09:30:00 Hospital HC COMPLETE BLD COUNT W/AUTO DIFF 2021-10-24 Nakia Cruz 09:17:00 Hospital PROTHROMBIN TIME WITH INR 2021-10-24 Nakia Cruz ist 09:17:00 Hospital COMPREHENSIVE METABOLIC PANEL 2021-10-24 Nakia Cruz thodist 09:17:00 Hospital PHOSPHORUS LEVEL 2021-10-24 Nakia Cruzist 09:17:00 Hospital MAGNESIUM LEVEL 2021-10-24 Nakia Cruz 09:17:00 Hospital ESTIMATED GFR 2021-10-24 Nakia Cruz 09:17:00 Hospital SMEAR REVIEW 2021-10-24 Nakia Cruz 09:17:00 Hospital ESOPHAGOGASTRODUODENOSCOPY (EGD) 2021-10-23 Elias Gumzan 17:25:00 Hospital HC COMPLETE BLD COUNT W/AUTO DIFF 2021-10-23 Nakia Cruz Zoroastrianism 11:38:00 Hospital PROTHROMBIN TIME WITH INR 2021-10-23 Nakia Cruz Method ist 11:38:00 [facility] COMPREHENSIVE METABOLIC PANEL 2021-10-23 Nakia Cruz Me thodist 11:38:00 Hospital PHOSPHORUS LEVEL 2021-10-23 Nakia Cruz Zoroastrianism 11:38:00 Hospital MAGNESIUM LEVEL 2021-10-23 Nakia Cruz Zoroastrianism 11:38:00 Hospital ESTIMATED GFR 2021-10-23 Nakia Cruz Zoroastrianism 11:38:00 Hospital SMEAR REVIEW 2021-10-23 Nakia Cruzist 11:38:00 Hospital TTE COMPLETE, W CONTRAST, W 2021-10-22 Myra Garcia DOPPLER ([id number]) 14:21:00 [facility] HC COMPLETE BLD COUNT W/AUTO DIFF 2021-10-22 Nakia Cruz 10:31:00 Hospital PROTHROMBIN TIME WITH INR 2021-10-22 Nakia Cruz Method ist 10:31:00 [facility] COMPREHENSIVE METABOLIC PANEL 2021-10-22 Nakia Cruz thodist 10:31:00 Hospital PHOSPHORUS LEVEL 2021-10-22 Nakia Cruz Zoroastrianism 10:31:00 Hospital MAGNESIUM LEVEL 2021-10-22 Nakia Cruz Zoroastrianism 10:31:00 Hospital THYROID STIMULATING HORMONE 2021-10-22 Nakia Cruz odist 10:31:00 Hospital T4 2021-10-22 Nakia Cruz Zoroastrianism 10:31:00 Hospital VITAMIN D 25 HYDROXY LEVEL 2021-10-22 Nakia Cruzo dist 10:31:00 Hospital ALPHA FETOPROTEIN 2021-10-22 Myra Garciaist 10:31:00 [facility] ESTIMATED GFR 2021-10-22 Nakia Cruzist 10:31:00 Hospital SMEAR REVIEW 2021-10-22 Nakia Cruzist 10:31:00 Hospital COVID-19 QUALITATIVE RT-PCR 2021-10-22 Nakia Cruz Meth odist 00:29:00 Hospital URINE CULTURE 2021-10-21 Nakia Cruz 22:46:00 [facility] URINALYSIS SCREEN AND MICROSCOPY, 2021-10-21 Nakia Cruz WITH REFLEX TO CULTURE 22:46:00 Hospital XR ABDOMEN 1 VW PORTABLE 2021-10-21 HusseinbalbinaMyra Flores odist 22:35:[address] [facility] [address] ABDOMEN PELVIS WO CONTRAST 2021-10-21 Nakia Cruz Me thodist 20:20:30 Hospital COVID-19 ANTI-SPIKE IGG ANTIBODY 2021-10-21 Nakia Cruz TITER 16:31:00 Hospital HC COMPLETE BLD COUNT W/AUTO DIFF 2021-10-21 Nakia Cruz 16:31:00 [facility] COMPREHENSIVE METABOLIC PANEL 2021-10-21 Nakia Cruz thodist 16:31:00 Hospital PROTHROMBIN TIME WITH INR 2021-10-21 Nakia Cruz ist 16:31:00 Hospital MAGNESIUM LEVEL 2021-10-21 Nakia Cruz 16:31:00 Hospital PHOSPHORUS LEVEL 2021-10-21 Nakia Cruz 16:31:00 Hospital LIPASE LEVEL 2021-10-21 Nakia Cruz 16:31:00 Hospital COVID-19 SEROLOGY PATIENT 2021-10-21 Nakia Cruz ist SURVEILLANCE 16:31:00 Hospital ESTIMATED GFR 2021-10-21 Nakia Cruz 16:31:00 [facility] XR KNEE 3 VW RIGHT 2021-09-29 [facility] 04:[facility]00 [facility] NOTICE OF PRIVACY PRACTICES 2021-09-29 Doctor Ceciliasslis, [facility] [employer] of 02:46:43 [place] [facility] CONSENT/REFUSAL FOR DIAGNOSIS AND 2021-09-29 Doctor Buck ol[facility]o [facility] 02:46:16 [place] [facility] XR KNEE 3 VW LEFT 2021-04-02 [facility] o f 20:10:39 F [facility] CONSENT/REFUSAL FOR DIAGNOSIS AND 2021-04-02 Doctor Buck olmedo [facility] TREATMENT 17:59:31 [place] [facility] ASSIGNMENT OF BENEFITS 2021-03-10 Doctor Kathleen, Univer sity of 20:29:46 [place] [facility] HC COMPLETE BLD COUNT W/AUTO DIFF 2021-02-20 Anabella Suresh 10:53:00 [facility] BASIC METABOLIC PANEL 2021-02-20 Anabella Suresh 10:53:00 [facility] HEPATIC FUNCTION PANEL 2021-02-20 Anabella Suresh 10:53:00 [facility] MAGNESIUM LEVEL 2021-02-20 Anabella Suresh 10:53:00 [facility] PHOSPHORUS LEVEL 2021-02-20 Anabella Suresh 10:53:00 [facility] PROTHROMBIN TIME WITH INR 2021-02-20 Rosemary Suresh ist 10:53:00 [facility] ESTIMATED GFR 2021-02-20 Anabella Suresh 10:53:00 [facility] SMEAR REVIEW 2021-02-20 Anabella Suresh 10:53:00 [facility] MRI CHOLANGIOGRAM WO CONTRAST 2021-02-20 Jeremy Sandoval Pr thodist 00:15:00 [facility] VENUNC NEED PHYS SKILL,DX OR RX 2021-02-19 Latanya Ring lda [employer] 16:10:21 Hospital HC COMPLETE BLD COUNT W/AUTO DIFF 2021-02-19 Anabella Suresh 11:00:00 [facility] BASIC METABOLIC PANEL 2021-02-19 Anabella Suresh 11:00:00 [facility] HEPATIC FUNCTION PANEL 2021-02-19 Anabella Suresh 11:00:00 [facility] MAGNESIUM LEVEL 2021-02-19 Anabella Suresh 11:00:00 [facility] PHOSPHORUS LEVEL 2021-02-19 Anabella Suresh 11:00:00 [facility] PROTHROMBIN TIME WITH INR 2021-02-19 Rosemary Suresh ist 11:00:00 [facility] ESTIMATED GFR 2021-02-19 Anabella Suresh 11:00:00 [facility] SMEAR REVIEW 2021-02-19 Anabella Suresh 11:00:00 [facility] CT ABDOMEN PELVIS WO CONTRAST 2021-02-19 Me Demetrice thodist 03:25:00 [facility] URINE CULTURE 2021-02-19 Anabella Suresh 02:27:00 [facility] URINALYSIS SCREEN AND MICROSCOPY, 2021-02-19 Anabella Suresh WITH REFLEX TO CULTURE 02:27:00 [facility] BLOOD CULTURE, AEROBIC & ANAEROBIC 2021-02-18 Anabella Suresh 23:25:00 [facility] TYPE AND SCREEN 2021-02-18 Dre Mayerist 23:25:00 Hospital COVID-19 ANTI-SPIKE IGG ANTIBODY 2021-02-18 Anabella Suresh TITER 22:57:00 [facility] COVID-19 SEROLOGY PATIENT 2021-02-18 Rosemary Suresh ist SURVEILLANCE 22:57:00 [facility] HC COMPLETE BLD COUNT W/AUTO DIFF 2021-02-18 Anabella Suresh 22:57:00 [facility] PROTHROMBIN TIME WITH INR 2021-02-18 Rosemary Suresh ist 22:57:00 [facility] COMPREHENSIVE METABOLIC PANEL 2021-02-18 Me Demetrice thodist 22:57:00 [facility] LACTIC ACID LEVEL 2021-02-18 Anabella Suresh 22:57:00 [facility] MAGNESIUM LEVEL 2021-02-18 Anabella Suresh 22:57:00 [facility] PHOSPHORUS LEVEL 2021-02-18 Anabella Suresh 22:57:00 [facility] LIPASE LEVEL 2021-02-18 Anabella Suresh 22:57:00 [facility] ESTIMATED GFR 2021-02-18 Anabella Suresh 22:57:00 [facility] SMEAR REVIEW 2021-02-18 Anabella Suresh 22:57:00 [facility] PHOSPHORUS 2020-10-03 Brenda Teixeira of 08:52:00 [facility] MAGNESIUM 2020-10-03 Brenda Teixeira [place] of 08:52:00 [facility] COMP. METABOLIC PANEL ([id number]) 2020-10-03 Brenda Teixeira iversity of 08:52:00 [facility] CBC WITH DIFF 2020-10-03 Brenda Teixeira [place] of 08:52:00 [facility] COMP. METABOLIC PANEL ([id number]) 2020-10-02 Brenda Teixeira Un iversity of 08:39:00 [facility] CBC WITH DIFF 2020-10-02 Brenda Teixeira [place] of 08:39:00 [facility] US DUPLEX VENOUS ARM LEFT - BY 2020-10-01 Brenda Teixeira [facility]iversity of VASCULAR LAB 16:22:58 [facility] COMP. METABOLIC PANEL ([id number]) 2020-10-01 Tomasa Rucker iversity of 07:45:00 [facility] CBC WITH DIFF 2020-10-01 Tomasa Rucker [place] of 07:45:00 [facility] TROPONIN I 2020-09-30 [facility] COMP. METABOLIC PANEL ([id number]) 2020-09-30 Shaina Pinto iversity of 10:56:00 [facility] CBC WITH DIFF 2020-09-30 Millie [facility] of 10:56:00 [facility] N-TERMINAL PRO-BNP 2020-09-30 Millie [facility] of 08:05:00 [facility] OCCULT (GUAIAC) BLOOD 2020-09-30 Millie [facility] of 02:10:00 [facility] FECAL LEUKOCYTES 2020-09-30 Millie [facility] of 02:10:00 [facility] CLOSTRIDIUM DIFFICILE TOXIN 2020-09-30 Millie [facility] ersity of 02:10:00 [facility] FECAL PATHOGENS BY PCR 2020-09-30 [facility] 02:10:00 [facility] POCT GLUCOSE (AUTOMATED) 2020-09-30 Rene Evans [facility] sity of 00:35:00 [facility] BASIC METABOLIC PANEL (NA, K, CL, 2020-09-29 Shaina Pinto [place] of CO2, GLUCOSE, BUN, CREATININE, CA) 21:11:00 [facility] HEMOGLOBIN 2020-09-29 Tomasa Rucker [place] of 21:11:00 [facility] TRANSTHORACIC ECHO (TTE) COMPLETE 2020-09-29 Marco Levy [place] of 16:03:00 [facility] HB ECG ROUTINE & RHYTHM STRIP 2020-09-29 Shaina Pinto iversity of 11:18:58 [facility] OSMOLALITY URINE 2020-09-29 Millie [facility] of 08:56:00 [facility] URINE CULTURE 2020-09-29 Millie, [facility] of 08:56:00 [facility] SODIUM, URINE RANDOM 2020-09-29 Millie, [facility] of 08:56:00 [facility] PROTEIN CREAT RATIO URINE RANDOM 2020-09-29 Millie, [facility] of 08:56:00 [facility] BLOOD CULTURE SCREEN 2020-09-29 Millie, [facility] of 08:32:00 [facility] LACTIC ACID WHOLE BLOOD 2020-09-29 Millie [facility] ty of 08:32:00 [facility] VITAMIN B12, LEVEL 2020-09-29 Millie [facility] of 08:31:00 [facility] C-REACTIVE PROTEIN 2020-09-29 Millie [facility] of 08:31:00 [facility] IRON PANEL 2020-09-29 Millie [facility] of 08:31:00 [facility] SEDIMENTATION RATE 2020-09-29 Millie [facility] of 08:31:00 [facility] DIFF CONSULT INTERPRETATION 2020-09-29 Shaina Pinto [facility] ersity of 08:31:00 [facility] CBC WITH DIFF 2020-09-29 Millie [facility] of 08:31:00 [facility] PROTHROMBIN TIME / INR 2020-09-29 [facility] 08:31:00 [facility] N-TERMINAL PRO-BNP 2020-09-29 Millie [facility] of 08:31:00 [facility] VITAMIN D, 25-OH 2020-09-29 Millie [facility] of 08:31:00 [facility] PROCALCITONIN 2020-09-29 Millie [facility] of 08:31:00 [facility] COVID-19 (ID NOW RAPID TESTING) 2020-09-29 Rene Evans [employer] of 05:10:00 [facility] LAB ONLY COVID INTERPRETATION 2020-09-29 Rene Evans [facility]iversity of 05:10:[address] [facility] [address] ABDOMEN PELVIS W CONTRAST 2020-09-29 Rene Evans Un iversity of 04:56:31 [facility] URINALYSIS 2020-09-29 Rene Evans [place] of 04:19:00 [facility] PHOSPHORUS 2020-09-29 Millie sharad [place] of 03:54:00 [facility] CREATINE KINASE 2020-09-29 Millie sharad [place] of 03:54:00 [facility] URIC ACID 2020-09-29 Millie [facility] of 03:54:00 [facility] LIPASE 2020-09-29 Rene Evans [place] of 03:54:00 [facility] MAGNESIUM 2020-09-29 Millie sharad [place] of 03:54:00 [facility] FERRITIN SERUM 2020-09-29 Millie, [facility] of 03:54:00 [facility] TROPONIN I 2020-09-29 [facility] of 03:54:00 [facility] THYROID STIMULATING HORMONE 2020-09-29 Millie [facility] ersity of 03:54:00 [facility] COMP. METABOLIC PANEL ([id number]) 2020-09-29 Rene Evans [facility] of 03:54:00 [facility] LIPID PANEL ([id number])(TOTAL 2020-09-29 Millie [facility] sity of CHOLESTEROL, TRIGLYCERIDES, HDL) 03:54:00 [facility] CBC WITH DIFF 2020-09-29 Rene Evans [place] of 03:54:00 [facility] GLYCOSYLATED HEMOGLOBIN (A1C) 2020-09-29 Shaina Pinto iversity of 03:54:00 [facility] N-TERMINAL PRO-BNP 2020-09-29 Millie [facility] of 03:54:00 [facility] CONSENT/REFUSAL FOR DIAGNOSIS AND 2020-09-29 Doctor Buck olmedo, [facility] 03:18:51 [place] [facility] NOTICE OF PRIVACY PRACTICES 2020-09-29 Doctor Unassigned, U niversity of 03:18:30 [place] [facility] CT ABDOMEN PELVIS W CONTRAST 2019-08-11 Corby Ca Uni versity of 14:50:46 [facility] COMP. METABOLIC PANEL ([id number]) 2019-08-11 Shaina Pinto Un iversity of 08:00:00 [facility] CBC WITH DIFFERENTIAL 2019-08-11 Shaina Pinto of 08:00:00 [facility] CBC WITH DIFFERENTIAL 2019-08-11 Millie, Shaina [place] of 08:00:00 [facility] XR SMALL BOWEL SERIES 2019-08-10 Valente Piña of 21:18:47 [facility] XR ABDOMEN 1 VW 2019-08-10 Millie, Shaina [place] of 11:52:39 [facility] PHOSPHORUS 2019-08-10 Millie, [facility] of 11:11:00 [facility] CREATINE KINASE 2019-08-10 Millie, Shaina [place] of 11:11:00 [facility] AMYLASE 2019-08-10 Millie, Shaina [place] of 11:11:00 [facility] LIPASE 2019-08-10 Millie, Shaina [place] of 11:11:00 [facility] MAGNESIUM 2019-08-10 [facility] TEST, SERUM 2019-08-10 Shaina Pinto [place] of 11:11:00 [facility] THYROID STIMULATING HORMONE 2019-08-10 Shaina Pinto Univ ersity of 11:11:00 [facility] COMP. METABOLIC PANEL ([id number]) 2019-08-10 Shaina Pinto Un iversity of 11:11:00 [facility] LIPID PANEL (93209)(TOTAL 2019-08-10 Shaina Pinto Univer sity of CHOLESTEROL, TRIGLYCERIDES, HDL) 11:11:00 [facility] SEDIMENTATION RATE 2019-08-10 Shaina Pinto of 11:11:00 [facility] CBC WITH DIFFERENTIAL 2019-08-10 [facility] 11:11[facility]00 [facility] GLYCOSYLATED HEMOGLOBIN (A1C) 2019-08-10 Shaina Pinto Un iversity of 11:11:00 [facility] PROTHROMBIN TIME / INR 2019-08-10 Shaina Pinto Univers[facility] y of 11:11:00 [facility] CORONAVIRUS COVID-19 TESTING 2019-08-10 Shaina Pinto Uni versity of 09:04:00 [facility] Plan of Care Planned Activity Planned Date Details Comments Source Future Scheduled 2022-03-15 Hepatitis C screening [facility] Test 14:24:37 (procedure) [code = 287704194] Future Scheduled 2022-03-15 Screening for [facility] Test 14:24:37 malignant neoplasm of cervix (procedure) [code = 034070847] Future Scheduled 2022-03-15 BREAST CANCER [facility] Test 14:24:37 SCREENING [code = BREAST CANCER SCREENING] Future Scheduled 2022-03-15 COLONOSCOPY SCREENING [facility] Test 14:24:37 [code = COLONOSCOPY SCREENING] Future Scheduled 2022-03-15 SHINGLES VACCINES (1 [facility] Test 14:24:37 of 2) [code = SHINGLES VACCINES (1 of 2)] Future Scheduled 2022-03-15 COVID-19 VACCINE (3 - [facility] Test 14:24:37 Booster for Moderna series) [code = COVID-19 VACCINE (3 - Booster for Moderna series)] Future Scheduled 2022-03-15 HEPATITIS B VACCINES [facility] Test 14:24:37 (1 of 3 - Risk 3-dose series) [code = HEPATITIS B VACCINES (1 of 3 - Risk 3-dose series)] Future Scheduled 2022-03-15 Pneumococcal Vaccine: [facility] Test 14:24:37 Pediatrics (0 to 5 Years) and At-Risk Patients (6 to 64 Years) (2 - PCV) [code = Pneumococcal Vaccine: Pediatrics (0 to 5 Years) and At-Risk Patients (6 to 64 Years) (2 - PCV)] Future Scheduled 2022-01-15 Pneumococcal Vaccine: [facility] Test 07:35:31 Pediatrics (0 to 5 Years) and At-Risk Patients (6 to 64 Years) (1 - PCV) [code = Pneumococcal Vaccine: Pediatrics (0 to 5 Years) and At-Risk Patients (6 to 64 Years) (1 - PCV)] Future Scheduled 2022-01-15 Hepatitis C screening [facility] Test 07:35:31 (procedure) [code = 410152149] Future Scheduled 2022-01-15 Screening for [facility] Test 07:35:31 malignant neoplasm of cervix (procedure) [code = 887786196] Future Scheduled 2022-01-15 BREAST CANCER [facility] Test 07:35:31 SCREENING [code = BREAST CANCER SCREENING] Future Scheduled 2022-01-15 COLONOSCOPY SCREENING [facility] Test 07:35:31 [code = COLONOSCOPY SCREENING] Future Scheduled 2022-01-15 SHINGLES VACCINES (1 [facility] Test 07:35:31 of 2) [code = SHINGLES VACCINES (1 of 2)] Future Scheduled 2022-01-15 COVID-19 VACCINE (3 - [facility] Test 07:35:31 Booster for Moderna series) [code = COVID-19 VACCINE (3 - Booster for Moderna series)] Future Scheduled 2022-01-15 HEPATITIS B VACCINES [facility] Test 07:35:31 (1 of 3 - Risk 3-dose series) [code = HEPATITIS B VACCINES (1 of 3 - Risk 3-dose series)] Future Scheduled 2022-01-13 Pneumococcal Vaccine: [facility] Test 14:41:05 Pediatrics (0 to 5 Years) and At-Risk Patients (6 to 64 Years) (1 - PCV) [code = Pneumococcal Vaccine: Pediatrics (0 to 5 Years) and At-Risk Patients (6 to 64 Years) (1 - PCV)] Future Scheduled 2022-01-13 Hepatitis C screening [facility] Test 14:41:05 (procedure) [code = 671178043] Future Scheduled 2022-01-13 Screening for [facility] Test 14:41:05 malignant neoplasm of cervix (procedure) [code = 512214574] Future Scheduled 2022-01-13 BREAST CANCER [facility] Test 14:41:05 SCREENING [code = BREAST CANCER SCREENING] Future Scheduled 2022-01-13 COLONOSCOPY SCREENING [facility] Test 14:41:05 [code = COLONOSCOPY SCREENING] Future Scheduled 2022-01-13 SHINGLES VACCINES (1 [facility] Test 14:41:05 of 2) [code = SHINGLES VACCINES (1 of 2)] Future Scheduled 2022-01-13 COVID-19 VACCINE (3 - [facility] Test 14:41:05 Booster for Moderna series) [code = COVID-19 VACCINE (3 - Booster for Moderna series)] Future Scheduled 2022-01-13 HEPATITIS B VACCINES [facility] Test 14:41:05 (1 of 3 - Risk 3-dose series) [code = HEPATITIS B VACCINES (1 of 3 - Risk 3-dose series)] Future Scheduled 2021-12-24 Pneumococcal Vaccine: [facility] Test 07:34:42 Pediatrics (0 to 5 Years) and At-Risk Patients (6 to 64 Years) (1 - PCV) [code = Pneumococcal Vaccine: Pediatrics (0 to 5 Years) and At-Risk Patients (6 to 64 Years) (1 - PCV)] Future Scheduled 2021-12-24 Hepatitis C screening [facility] Test 07:34:42 (procedure) [code = 364741024] Future Scheduled 2021-12-24 Screening for [facility] Test 07:34:42 malignant neoplasm of cervix (procedure) [code = 460692527] Future Scheduled 2021-12-24 BREAST CANCER [facility] Test 07:34:42 SCREENING [code = BREAST CANCER SCREENING] Future Scheduled 2021-12-24 COLONOSCOPY SCREENING [facility] Test 07:34:42 [code = COLONOSCOPY SCREENING] Future Scheduled 2021-12-24 SHINGLES VACCINES (1 [facility] Test 07:34:42 of 2) [code = SHINGLES VACCINES (1 of 2)] Future Scheduled 2021-12-24 COVID-19 VACCINE (3 - [facility] Test 07:34:42 Booster for Moderna series) [code = COVID-19 VACCINE (3 - Booster for Moderna series)] Future Scheduled 2021-12-24 HEPATITIS B VACCINES [facility] Test 07:34:42 (1 of 3 - Risk 3-dose series) [code = HEPATITIS B VACCINES (1 of 3 - Risk 3-dose series)] Future Scheduled 2021-12-09 Pneumococcal Vaccine: [facility] Test 13:56:39 Pediatrics (0 to 5 Years) and At-Risk Patients (6 to 64 Years) (1 - PCV) [code = Pneumococcal Vaccine: Pediatrics (0 to 5 Years) and At-Risk Patients (6 to 64 Years) (1 - PCV)] Future Scheduled 2021-12-09 Hepatitis C screening [facility] Test 13:56:39 (procedure) [code = 084322343] Future Scheduled 2021-12-09 Screening for [facility] Test 13:56:39 malignant neoplasm of cervix (procedure) [code = 645518408] Future Scheduled 2021-12-09 BREAST CANCER [facility] Test 13:56:39 SCREENING [code = BREAST CANCER SCREENING] Future Scheduled 2021-12-09 COLONOSCOPY SCREENING [facility] Test 13:56:39 [code = COLONOSCOPY SCREENING] Future Scheduled 2021-12-09 SHINGLES VACCINES (1 [facility] Test 13:56:39 of 2) [code = SHINGLES VACCINES (1 of 2)] Future Scheduled 2021-12-09 COVID-19 VACCINE (3 - [facility] Test 13:56:39 Booster for Moderna series) [code = COVID-19 VACCINE (3 - Booster for Moderna series)] Future Scheduled 2021-12-09 HEPATITIS B VACCINES [facility] Test 13:56:39 (1 of 3 - Risk 3-dose series) [code = HEPATITIS B VACCINES (1 of 3 - Risk 3-dose series)] Future Scheduled 2021-12-09 INFLUENZA VACCINE [facility] 13:56:39 [code = INFLUENZA VACCINE] Encounters Start End Encounter Admission Attending Care Care Encounter Source Date/Time Date/Time Type Type Clinicians Facility Department ID 2021-10-13 Outpatient Kattegummul STLMLC STLC [id number] Common 14:25:01 a, Madhu [facility] 2021-05-06 Outpatient Kattegummul STLMLC STLC [id number] Common 14:30:56 a, Madhu [facility] 2021-05-06 Outpatient Kattegummul STLMLC STLMLC [id number] Common 14:26:04 a, Madhu 44968 [facility] 2021-05-06 Outpatient Kattegummul STLMLC STLMLC [id number] Common 14:05:28 a, Madhu 90199 [facility] 2021-05-06 Outpatient Kattegummul STLMLC STLMLC [id number] Common 13:37:29 a, Madhu 62031 [facility] 2021-05-06 Outpatient [place], STLMLC STLMLC [id number] Common 13:36:02 Annalise [id number] [facility] 2021-05-06 Outpatient [place], STLMLC [facility] [id number] Common 11:25:36 Annalise [id number] [facility] 2021-02-09 Emergency [facility] [id number] Univers 02:25:27 ity [facility] 2022-02-25 2022-02-27 Emergency Rehrer, Stevo Raymundo 1.2.840.1 [id number] Methodi 12:36:00 18:45:00 Jeremy Sandoval 01775.1.[address] 3.430.2.7 Hospit a .3.826894 l .8 2022-02-25 2022-02-27 Outpatient MICHELVICKI [facility] 064 [id number] [place] 00:00:00 00:00:00 JEREMY [address] 2022-02-25 2022-02-25 Travel 1.2.840.1 1.2.044.254 [id number] Methodi 00:00:00 00:00:[address] 3.430.2.7 0.2.7.3.698 Ho spita .3.257101 084.8 l .8 2022-02-15 2022-02-15 [facility] [id number] Univers 13:44:00 16:34:00 FLORIAN aburto [facility] 2022-02-15 2022-02-15 Emergency [facility] 1.2.019.109 [id number] Univers 13:44:00 16:34:00 Florian WHITT 350.1.13.10 i [facility] 4.2.7.2.686 [facility] [id number] [place] [address] [place] 2022-01-31 2022-02-04 [facility] Rolando Olivier 1.2.840.1 [id number] Methodi 18:11:00 16:36:00 Encounter Bebeto Ward 38255.1.[address] Nakia Cruz 3.430.2.7 Hos alvaro .3.295003 l .8 2022-01-31 2022-02-04 Inpatient NAKIA CRUZ [facility] 064 [id number] [place] 00:00:00 00:00:[address] 2022-02-03 2022-02-03 Anesthesia Aziza Cordero 1.2.840.1 [id number] Methodi 14:37:00 15:02:00 Event Bebeto Heck Veronique 00697.1.[address] 3.430.2.7 Hospit a .3.047960 l .8 2022-02-03 2022-02-03 Surgery Sanches, 1.2.840.1 [id number] Methodi 14:30:00 15:00:00 Co[place] M[address] 10693.1.[address] 3.430.2.7 Hospit a .3.815424 l .8 2022-02-02 2022-02-02 Prep for Verónica, 1.2.840.1 [id number] 09330 Methodi 00:00:00 00:00:00 Surgery Carloin KyrieJason 17271.1.[address] 3.430.2.7 Hospit a .3.765145 l .8 2022-01-01 2022-01-06 [facility] Vandana Bernsteinkant 1.2.840 .1 [id number] Methodi 23:18:00 19:11:00 Encounter Nakia Cruz 33490.1.[address] [facility] 3.430.2.7 Hospita .3.045192 l .8 2022-01-01 2022-01-06 [facility] 1.2.840.1 [id number] [id number] [place] 00:00:00 00:00:00 Encounter JEREMY 37342.1.1 374 [facility] [facility] .3.077363 .8 2022-01-05 2022-01-05 Surgery Angelvadelicia, 1.2.840.1 [id number] Methodi 16:00:00 16:30:[address] 3.430.2.7 Hospit a .3.938327 l .8 2022-01-05 2022-01-05 Surgery Angelcosmo, 1.2.840.1 [id number] Methodi 16:00:00 16:30:[address] 3.430.2.7 Hospit a .3.891365 l .8 2022-01-05 2022-01-05 Anesthesia Handy Dietrich 1.2.840 .1 [id number] Methodi 15:55:00 16:18:00 Event Bebeto Heck 96462.1.[address] 3.430.2.7 Hospit a .3.599672 l .8 2022-01-05 2022-01-05 Anesthesia Handy Dietrich 1.2.840 .1 [id number] Methodi 15:55:00 16:18:00 Event Bebeto Heck 94815.1.[address] 3.430.2.7 Hospit a .3.019131 l .8 2022-01-02 2022-01-02 Travel 1.2.840.1 1.2.063.349 2974 [id number] Methodi 00:00:00 00:00:[address] 3.430.2.7 0.2.7.3.698 Ho spita .3.091946 084.8 l .8 2022-01-02 2022-01-02 Travel 1.2.840.1 1.2.243.140 [id number] [id number] Methodi 00:00:00 00:00:[address] 3.430.2.7 0.2.7.3.698 Ho spita .3.515739 084.8 l .8 2021-12-11 2021-12-18 [facility] Stevo Hoskins 1.2.840.1 [id number] Methodi 16:59:00 17:46:00 Encounter Jeremy Sandoval 22341.1.[address] Ward, Bebeto 3.430.2.7 Hospita .3.270513 l .8 2021-12-11 2021-12-18 [facility] WARD, 1.2.840.1 [id number] [place] 00:00:00 00:00:00 Encounter BEBETO 54663.1.1 [address] .3.542091 .8 2021-11-26 2021-12-03 [facility] Jefferson Skelton 1.2.840.1 [id number] Methodi 16:08:00 14:06:00 Encounter Jeremy Sandoval 34571.1.[address] Willian Garcia 3.430.2.7 Hospita Nakia Cruz .3.897430 l .8 2021-11-26 2021-12-03 [facility] NAKIA CRUZ [facility] 064 [id number] [place] 00:00:00 00:00:00 Encounter [address] 2021-11-30 2021-11-30 Anesthesia Mahnaz Trujillo 1.2.840.1 1 [id number] Methodi 14:50:00 15:11:00 Event BurgosFeng 11924.1.[address] 3.430.2.7 Hospit a .3.100792 l .8 2021-11-30 2021-11-30 Anesthesia Mahnaz Trujillo 1.2.840.1 1 [id number] Methodi 14:50:00 15:11:00 Event Aubrey Feng Ojeda 08305.1.[address] 3.430.2.7 Hospit a .3.062670 l .8 2021-11-30 2021-11-30 Surgery Duchini, 1.2.840.1 [id number] Methodi 14:30:00 15:00:[address] 3.430.2.7 Hospit a .3.297656 l .8 2021-11-30 2021-11-30 Surgery Duchini, 1.2.840.1 [id number] Methodi 14:30:00 15:00:[address] 3.430.2.7 Hospit a .3.965591 l .8 2021-10-21 2021-10-26 [facility] 1.2.840.1 [id number] Methodi 09:04:00 14:43:00 Encounter Nakia Cruz 44594.1.[address] Maite, Anandceline ShipleyTod 3.430.2.7 Hospita .3.073040 l .8 2021-10-21 2021-10-26 [facility] Center 1.2.840.1 [id number] Methodi 09:04:00 14:43:00 Encounter Nakia Cruz 06283.1.[address] Maite, Anand Tod 3.430.2.7 Hospita .3.351601 l .8 2021-10-23 2021-10-23 Surgery Duchini, 1.2.840.1 [id number] Methodi 12:30:00 13:30:[address] 3.430.2.7 Hospit a .3.705209 l .8 2021-10-23 2021-10-23 Surgery Duchini, 1.2.840.1 [id number] Methodi 12:30:00 13:30:[address] 3.430.2.7 Hospit a .3.130924 l .8 2021-10-23 2021-10-23 Anesthesia Consuelo, Oya 1.2.840.1 [id number] Methodi 12:25:00 12:53:[address] 3.430.2.7 Hospit a .3.318457 l .8 2021-10-23 2021-10-23 Anesthesia Consuelo, Oya 1.2.840.1 [id number] Methodi 12:25:00 12:53:[address] 3.430.2.7 Hospit a .3.860646 l .8 2021-10-21 2021-10-21 Travel 1.2.840.1 1.2.461.399 3933 [id number] Methodi 00:00:00 00:00:[address] 3.430.2.7 0.2.7.3.698 Ho spita .3.300106 084.8 l .8 2021-10-21 2021-10-21 Travel 1.2.840.1 1.2.579.013 8092 792676 Methodi 00:00:00 00:00:[address] 3.430.2.7 0.2.7.3.698 Ho spita .3.817457 084.8 l .8 2021-09-28 2021-09-29 Emergency X Sukhdev SOTO [facility] ERT [id number] Univers 22:03:00 00:15:00 ity of [facility] 2021-09-28 2021-09-29 Emergency Sukhdev Soto [facility] 1.2.840.114 [id number] Univers 22:03:00 00:15:00 Mary WHITT 350.1.13.10 i ty [facility] [place] [phone] [facility] 084 Branch 2021-09-28 2021-09-28 Orders Doctor VERONIQUE 1.2.840.114 [id number] Univers 00:00:00 00:00:00 Only Unassigned, GONZALO 350.1.13.10 ity of [place] [facility] 4.2.7.2.686 Quang as [phone] [facility] 009 Branch 2021-04-07 2021-04-07 Letter Orthopedic [facility] 1.2.840.114 [id number] Univers 00:00:00 00:00:00 (Out) Clinic SPECIALTY 350.1.13.10 ity of CARE 4.2.7.2.686 [facility] AT [phone] Pr diccarol PATINO 198 [facility] 2021-04-02 2021-04-02 Emergency X BEATRIZ, [facility] ERT [id number] Univers 12:58:00 15:25:00 SILVIOO ity [facility] 2021-04-02 2021-04-02 [facility] 1.2.840.114 [id number] Univers 12:58:00 15:25:00 Azalea WHITT 350.1.13.10 ity [facility] [place] [phone] [facility] [address] [place] 2021-03-11 2021-03-11 Telephone VERONIQUE Cruz 1.2.301.221 [id number] 9674 Univers 00:00:00 00:00:00 Frances SÁNCHEZ 350.1.13.10 it y of [facility] 4.2.7.2.686 Quang as [id number] [facility] [address] [place] 2021-03-10 2021-03-10 Outpatient Sami [facility] [id number] Univers 14:45:00 14:51:40 [facility] 2021-03-10 Laboratory Only, Ang Db Test [facility] 1.2.8 40.114 [id number] Univers 14:29:53 14:44:53 Only Unknown, Attending HEALTH 350.1.13.10 ity of [place] 4.2.7.2.686 Quang as MARINA?BLEA [phone] Pr dical SUNDEEPDOROTHY [address] [place] [facility] 2021-03-10 2021-03-10 Orders Doctor VERONIQUE 1.2.840.114 [id number] Univers 00:00:00 00:00:00 Only Unassigned, GONZALO 350.1.13.10 ity of [place] [facility] 4.2.7.2.686 Quang as [phone] [facility] [address] [place] 2021-02-18 2021-02-20 [facility] Sharita Suresh 1.2.840.1 [id number] Methodi 15:45:00 14:08:00 Encounter Jeremy Sandoval 22631.1.[address] 3.430.2.7 Hospit a .3.360538 l .8 2021-02-03 2021-02-04 Emergency X [facility] ERT [id number] Univers 21:10:00 03:21:00 GARTH ity of [facility] 2020-10-21 2020-10-27 Inpatient SYLVIA [facility] 064 [id number] [place] 00:00:00 00:00:[address] 2020-10-06 2020-10-06 Transition Yelena Taylorli 1.2.840.114 [id number] Univers 00:00:00 00:00:00 of Care Madiha Sotelo 350.1.13.10 i ty of [place]2.[place] [phone] [facility] 403 Branch 2020-09-28 2020-10-03 [facility] Rene Evans [facility] 1.2.840. 114 [id number] Univers 22:23:00 13:05:00 Encounter Shaina Pinto 350.1.13.10 ity of [place] [id number] [facility] 081 Branch 2020-09-28 2020-09-28 Orders Doctor VERONIQUE 1.2.840.114 [id number] Univers 00:00:00 00:00:00 Only Unassigned, GONZALO 350.1.13.10 ity of [place] [facility] 4.2.7.2.686 Quang as [phone] [facility] 009 Branch 2020-09-09 2020-09-12 Inpatient MANUELITOSAADIANAKIA [facility] 064 [id number] [place] 00:00:00 00:00:[address] 2020-08-08 2020-08-08 Outpatient Sami GERMAN, [facility] [id number] Univers 15:40:00 15:40:00 TERRI ity of [facility] 2020-07-11 2020-07-11 Outpatient [facility] [id number] Univers 15:40:00 15:40:00 ity of [facility] 2020-06-09 2020-06-22 Inpatient MANUELITOSAADIANAKIA [facility] 064 [id number] [place] 00:00:00 00:00:00 836 Method i 2020-03-19 2020-03-23 Inpatient DINAKAR, [facility] 546 [id number] 848 [place] 00:00:00 00:00:00 JEREMY 742 Method i 2020-03-14 2020-03-18 Inpatient DINAKAR, [facility] 083 [id number] 585 [place] 00:00:00 00:00:00 JEREMY 157 Method i 2020-02-13 2020-02-13 Laboratory Lab, [facility] Fam Pob I [facility] 1.2. 840.114 [id number] [facility] 10:22:10 10:42:10 Only Kamaljit [facility]ce [facility] 350.1.13.10 ity of [place] 4.2.7.2.686 Quang as Professio [phone] Pr dic[address] Office Building [facility] 2020-02-13 2020-02-13 Laboratory Lab, Adc [facility] 1.2.840.114 [id number] 10:22:10 10:42:10 Only Fam Pob I Health 350.1.13.10 [place] 4.2.7.2.686 Professio [phone] nal [facility] Office Building [facility] 2019-09-28 2019-09-28 Outpatient [facility] [id number] Common 09:00:00 09:00:00 t [facility] 2019-09-18 2019-09-18 Outpatient [facility] [id number] Common 09:30:00 09:30:00 t Bone Bone and Spiri t and Joint [facility] - [facility] 2019-08-14 2019-08-14 Transition Yelena Alexandran 1.2.840.114 [id number] [facility] 00:00:00 00:00:00 of Care Jovanny Coopery 350.1.13.10 ity of [place] [phone] [address] 2019-08-14 2019-08-14 Transition Nasrin, Shearn 1.2.840.114 [id number] [id number] 00:00:00 00:00:00 of Care Jovanny Sotelo 350.1.13.10 [place] 4.2.7.2.686 [phone] 403 2019-08-10 2019-08-11 Inpatient U [facility] [id number] Univers 02:55:00 16:09:00 SHAINA ity [facility] 2019-08-10 2019-08-11 [facility] 1.2.244.443 [id number] 4528 Univers 02:55:00 16:09:00 Encounter [facility].2.7[facility]2.[facility] [phone] [place] [address] Branch 2019-08-10 2019-08-11 [facility] 1.2.824.169 1412 4528 02:55:00 16:09:00 Encounter Shaina Whitt 350.1.13.10 [place] 4.2.7.2.686 [place] [phone] 081 Results Test Description Test Time Test Comments Results Result Comments Source POC glucose 2022-02-27 09:39:00 Test Item Value Reference Range Interpretation Comme nts POC glucose (test code = 107 mg/dL 65-99 H Ope rator Name: Aris Stevens ID: [id number]) [id number] able: [facility] Notified academic dean Interpretation (test code = Abnormal 40183-6) [facility] 12 [id number] 02:51:50 Test Item Value Reference Range Interpretation Comments Ventricular rate (test code = 253) Atrial rate (test code = 255) UT interval (test code = 266) QRSD interval (test code = 260) QT interval (test code = 264) QTC interval (test code = 265) P axis 1 (test code = 267) QRS axis 1 (test code = 268) T wave axis (test code = 270) EKG impression (test Normal sinus code = 273) rhythm-Right bundle branch block-Abnormal ECG-- [facility] ED Preliminary Interpretation - Not an [id number] 20:37:40 Test Item Value Reference Range Interpretation Comments SNOW (test code = SNOW) Rehrer, Stevo Zackary, DO 02/28/2022 12:23 [facility] Preliminary Interpretation - Not an OrderPerformed by: Stevo Hoskins DOAuthorized by: Stevo Hoskins DO ECG reviewed by ED Physician in the absence of a assistant finance director: yes Interpretation: Interpretation: abnormal Rate: ECG rate: 70 ECG rate assessment: normal Rhythm: Rhythm: sinus rhythm Ectopy: Ectopy: none QRS: QRS axis: Normal QRS intervals: WideConduction: Conduction: abnormal Abnormal conduction: complete RBBB ST segments: ST segments: NormalT waves: T waves: non-specific Lab Interpretation Abnormal (test code = 14768-5) Zoroastrianismnohelia CastroOmgdzgpzEKHV-RgH-0 (COVID-19) RNA [Presence] in Respiratory specimen by HELENA with probe [id number] 18:28:31 Test Item Value Reference Range Interpretation Comments SARS-CoV-2 (COVID-19) RNA Not detected [Presence] in Respiratory specimen by HELENA with probe detection (test code = 93528-4) 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 employed in a Unknown healthcare setting (test code = 72645-2) Whether the patient has symptoms Unknown related to condition of interest (test code = 38368-6) Whether the patient was Unknown hospitalized for condition of interest (test code = 68301-9) Whether the patient was admitted Unknown to intensive care unit (ICU) for condition of interest (test code = 01288-7) Whether patient resides in a Unknown congregate care setting (test code = 40375-3) status (test code = Unknown 91919-6) Date and time of symptom onset Unknown (test code = 64100-2) HYDABURG ANABELLA [facility] WITH [id number] 21:35:39 Test Item Value Reference Range Interpretation Comments WBC (test code = See_Comment L [Automated 0190-2) message] The sy stem which generated this result transmitted reference range : 4.30 - 11.10 10*3/?L. The reference range was not used to interpret this result as normal/abnormal . RBC (test code = See_Comment L [Automated 659-8) message] The sy stem which generated this result transmitted reference range : 3.93 - 5.25 10*6/?L. The reference range was not used to interpret this result as normal/abnormal . HGB (test code = 10.0 g/dL 11.6-15.0 L 718-7) HCT (test code = 30.4 % 35.7-45.2 L 4544-3) MCV (test code = 87.4 fL 80.6-95.5 787-2) MCH (test code = 28.7 pg 25.9-32.8 785-6) MCHC (test code = 32.9 g/dL 31.6-35.1 786-4) RDW-SD (test code = 53.7 fL 39.0-49.9 H 97840-9) RDW-CV (test code = 17.0 % 12.0-15.5 H 788-0) PLT (test code = See_Comment L [Automated 777-3) message] The sy stem which generated this result transmitted reference range : 166 - 358 10*3/ ?L. The reference r davi was not used to interpret this result as normal/abnormal . MPV (test code = 9.8 fL 9.5-12.9 40203-5) IPF % (test code = 2.2 % 1.3-7.7 Platelet count 9129403402) measured by fluorescence method. NRBC/100 WBC (test See_Comment [Automat ed code = 0731574091) message] The system which generated this result transmitted reference range : 0.0 - 10.0 /100 WBCs. The refer ence range was not u sed to interpret th is result as normal/abnormal . NRBC x10^3 (test code See_Comment [Auto mated = 3119945530) message] The s ystem which generated this result transmitted reference range : 10*3/?L. The reference range was not used to interpret this result as normal/abnormal . SEG % (test code = 60 % 33-76 44369-9) BAND % (test code = 3 % 0-1 H 84024-6) LYMPH % (test code = 23 % 14-54 73535-6) MONO % (test code = 12 % 0-4 H 12184-9) EOS % (test code = 2 % 0-3 05922-6) ANC (test code = 1.38 10*3/uL 1.88-7.09 L 753-4) PLT ESTIMATE (test Decreased Normal A code = 9317-9) Lab Interpretation Abnormal (test code = 75216-8) [facility] [place]. METABOLIC PANEL (83301)2022-02-15 20:44:39 Test Item Value Reference Range Interpretation Comments NA (test code = 137 mmol/L 135-145 8764814286) K (test code = 3.8 mmol/L 3.5-5.0 5361452598) CL (test code = 107 mmol/L 98-108 6890268343) CO2 TOTAL (test code = 25 mmol/L 23-31 0402975193) AGAP (test code = 2-16 2651663366) BUN (test code = 11 mg/dL 7-23 1736497134) GLUCOSE (test code = 103 mg/dL 70-110 8019273986) CREATININE (test code = 0.53 mg/dL 0.50-1.04 1058385301) TOTAL BILI (test code = 1.9 mg/dL 0.1-1.1 H 0732475940) CALCIUM (test code = 8.2 mg/dL 8.6-10.6 L 0978661871) T PROTEIN (test code = 6.4 g/dL 6.3-8.2 4115716886) ALBUMIN (test code = 3.4 g/dL 3.5-5.0 L 0889745015) ALK PHOS (test code = 146 U/L 34-122 H 1097491159) ALTv (test code = 40 U/L 5-35 H 1742-6) AST(SGOT) (test code = 52 U/L 13-40 H 6512911603) eGFR (test code = mL/min/1.73m2 5378645516) SNOW (test code = SNOW) Association of [...] tests). Lab Interpretation Abnormal (test code = 49242-2) [facility] Test Item Value Reference Range Interpretation Comments LIPASE (test code = 9445786998) 298 U/L 0-220 H Lab Interpretation (test code = Abnormal 29366-7) [facility] wpzyxjb7398-85-70 03:08:00 Test Item Value Reference Range Interpretation Comments Urine culture (test SEE COMMENT Bacteriu bartolo screen code = 4347943) negative. [facility] RNA [Presence] in Respiratory specimen by HELENA with probe [id number] 02:16:27 Test Item Value Reference Range Interpretation Comments SARS-CoV-2 (COVID-19) RNA Not detected [Presence] in Respiratory specimen by HELENA with probe detection (test code = 26025-4) 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 employed in a Unknown healthcare setting (test code = 83950-6) Whether the patient has symptoms Unknown related to condition of interest (test code = 95588-1) Whether the patient was Unknown hospitalized for condition of interest (test code = 63081-5) Whether the patient was admitted Unknown to intensive care unit (ICU) for condition of interest (test code = 18095-4) Whether patient resides in a Unknown congregate care setting (test code = 82514-2) status (test code = Unknown 64806-4) Date and time of symptom onset Unknown (test code = 41528-5) [facility] [id number] 22:22:49 Test Item Value Reference Range Interpretation Comments Case number (test code = [id number]) Surgical pathology See link below for report (test code = PDF Lab Report 2255) Result status (test code This is Final Report = [id number]) for [id number] [facility] pathology [id number] 22:22:49 Test Item Value Reference Range Interpretation Comments Case number (test code = [id number]) Surgical pathology See link below for report (test code = PDF Lab Report 2255) Result status (test code This is Final Report = 7541690) for [id number] pathology [id number] 22:22:49 Test Item Value Reference Range Interpretation Comments Case number (test code = [id number]) Surgical pathology See link below for report (test code = PDF Lab Report 2255) Result status (test code This is Final Report = [id number]) for [id number] [facility] sbmmove3156-31-76 17:57:00 Test Item Value Reference Range Interpretation Comments POC glucose (test code = 121 mg/dL 65-99 H Ope rator Name: [id number]) Rustam Elaine vice ID: [id number] able: [facility] Notified academic dean Interpretation (test Abnormal code = 37308-8) [facility] [id number] 17:57:00 Test Item Value Reference Range Interpretation Comments POC glucose (test code = 121 mg/dL 65-99 H Ope rator Name: [id number]) Rustam Elaine vice ID: [id number] able: [facility] Notified academic dean Interpretation (test Abnormal code = 02166-0) [facility] [id number] 11:53:00 Test Item Value Reference Range Interpretation Comments Urine culture (test SEE COMMENT Bacteriu bartolo screen code = 8452751) negative. [facility]2022-09-24 11:53:00 Test Item Value Reference Range Interpretation Comments Urine culture (test SEE COMMENT Bacteriu bartolo screen code = 0174947) negative. Anabella CastroARS-CoV-2 (COVID-19) RNA [Presence] in Respiratory specimen by HELENA with probe vfaokaytu4559-36-06 08:30:51 Test Item Value Reference Range Interpretation Comments SARS-CoV-2 (COVID-19) RNA Not detected [Presence] in Respiratory specimen by HELENA with probe detection (test code = 87124-4) 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 employed in a Unknown healthcare setting (test code = 39077-3) Whether the patient has symptoms Unknown related to condition of interest (test code = 25505-8) Whether the patient was Unknown hospitalized for condition of interest (test code = 53791-2) Whether the patient was admitted Unknown to intensive care unit (ICU) for condition of interest (test code = 78238-3) Whether patient resides in a Unknown congregate care setting (test code = 13709-9) status (test code = Unknown 40709-6) Date and time of symptom onset Unknown (test code = 31330-2) HYDABURG ANABELLA [address]2022-09-03 12:19:45 Test Item Value Reference Range Interpretation Comments Ventricular rate (test code = 253) Atrial rate (test code = 255) UT interval (test code = 266) QRSD interval (test code = 260) QT interval (test code = 264) QTC interval (test code = 265) P axis 1 (test code = 267) QRS axis 1 (test code = 268) T wave axis (test code = 270) EKG impression (test Normal sinus code = 273) rhythm-Right bundle branch block-Abnormal ECG-In automated comparison with ECG of 26-NOV-2021 19:29,-No significant change was found- [facility]2022-09-03 12:19:45 Test Item Value Reference Range Interpretation Comments Ventricular rate (test code = 253) Atrial rate (test code = 255) UT interval (test code = 266) QRSD interval (test code = 260) QT interval (test code = 264) QTC interval (test code = 265) P axis 1 (test code = 267) QRS axis 1 (test code = 268) T wave axis (test code = 270) EKG impression (test Normal sinus code = 273) rhythm-Right bundle branch block-Abnormal ECG-In automated comparison with ECG of 26-NOV-2021 19:29,-No significant change was found- [facility] 12 [id number] 12:19:45 Test Item Value Reference Range Interpretation Comments Ventricular rate (test code = 253) Atrial rate (test code = 255) UT interval (test code = 266) QRSD interval (test code = 260) QT interval (test code = 264) QTC interval (test code = 265) P axis 1 (test code = 267) QRS axis 1 (test code = 268) T wave axis (test code = 270) EKG impression (test Normal sinus code = 273) rhythm-Right bundle branch block-Abnormal ECG-In automated comparison with ECG of 26-NOV-2021 19:29,-No significant change was found- [facility] ED Preliminary Interpretation - Not an [id number] 05:33:45 Test Item Value Reference Range Interpretation Comments SNOW (test code = SNOW) Stevo Hoskins DO 12/13/2021 12:08 [facility] Preliminary Interpretation - Not an OrderPerformed by: Stevo Hoskins DOAuthorized by: Stevo Hoskins DO ECG reviewed by ED Physician in the absence of a assistant finance director: yes Previous ECG: Previous ECG: UnavailableInterpretat ion: Interpretation: abnormal Rate: ECG rate: 63 ECG rate assessment: normal Rhythm: Rhythm: sinus rhythm Ectopy: Ectopy: none QRS: QRS axis: Normal QRS intervals: NormalConduction: Conduction: abnormal Abnormal conduction: complete RBBB ST segments: ST segments: NormalT waves: T waves: non-specific Lab Interpretation Abnormal (test code = 64416-9) [facility] ED Preliminary Interpretation - Not an [id number] 05:33:45 Test Item Value Reference Range Interpretation Comments SNOW (test code = SNOW) Stevo Hoskins DO 12/13/2021 12:08 [facility] Preliminary Interpretation - Not an OrderPerformed by: Stevo Hoskins DOAuthorized by: Stevo Hoskins DO ECG reviewed by ED Physician in the absence of a assistant finance director: yes Previous ECG: Previous ECG: UnavailableInterpretat ion: Interpretation: abnormal Rate: ECG rate: 63 ECG rate assessment: normal Rhythm: Rhythm: sinus rhythm Ectopy: Ectopy: none QRS: QRS axis: Normal QRS intervals: NormalConduction: Conduction: abnormal Abnormal conduction: complete RBBB ST segments: ST segments: NormalT waves: T waves: non-specific Lab Interpretation Abnormal (test code = 40104-6) [facility] ED Preliminary Interpretation - Not an [id number] 05:33:45 Test Item Value Reference Range Interpretation Comments SNOW (test code = SNOW) Stevo Hoskins DO 12/13/2021 12:08 [facility] Preliminary Interpretation - Not an OrderPerformed by: Stevo Hoskins DOAuthorized by: Stevo Hoskins DO ECG reviewed by ED Physician in the absence of a assistant finance director: yes Previous ECG: Previous ECG: UnavailableInterpretat ion: Interpretation: abnormal Rate: ECG rate: 63 ECG rate assessment: normal Rhythm: Rhythm: sinus rhythm Ectopy: Ectopy: none QRS: QRS axis: Normal QRS intervals: NormalConduction: Conduction: abnormal Abnormal conduction: complete RBBB ST segments: ST segments: NormalT waves: T waves: non-specific Lab Interpretation Abnormal (test code = 13470-7) [facility] [id number] 05:22:00 Test Item Value Reference Range Interpretation Comments Urine culture (test SEE COMMENT Bacteriu bartolo screen code = 0520851) negative. [facility] RNA [Presence] in Respiratory specimen by HELENA with probe [id number] 02:31:14 Test Item Value Reference Range Interpretation Comments SARS-CoV-2 (COVID-19) RNA Not detected [Presence] in Respiratory specimen by HELENA with probe detection (test code = 35580-4) 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 employed in a Unknown healthcare setting (test code = 67719-7) Whether the patient has symptoms Unknown related to condition of interest (test code = 90086-0) Whether the patient was Unknown hospitalized for condition of interest (test code = 97300-9) Whether the patient was admitted Unknown to intensive care unit (ICU) for condition of interest (test code = 80641-2) Whether patient resides in a Unknown congregate care setting (test code = 27362-2) status (test code = Unknown 10178-6) Date and time of symptom onset Unknown (test code = 84891-9) [place] [address] [id number] 13:24:41 Test Item Value Reference Range Interpretation Comments Ventricular rate (test code = 253) Atrial rate (test code = 255) UT interval (test code = 266) QRSD interval (test code = 260) QT interval (test code = 264) QTC interval (test code = 265) P axis 1 (test code = 267) QRS axis 1 (test code = 268) T wave axis (test code = 270) EKG impression (test code Normal sinus = 273) rhythm-Right bundle branch block- [facility] ED Preliminary Interpretation - Not an [id number] 00:04:12 Test Item Value Reference Range Interpretation Comments SNOW (test code = SNOW) Jefferson Skelton MD 12/04/2021 11:12 [facility] Preliminary Interpretation - Not an OrderPerformed by: Jefferson Skelton MDAuthorized by: Jefferson Skelton MD ECG reviewed by ED Physician in the absence of a assistant finance director: yes Interpretation: Interpretation: abnormal Rate: ECG rate: 70 ECG rate assessment: normal Rhythm: Rhythm: sinus rhythm QRS: QRS axis: Normal QRS intervals: WideConduction: Conduction: abnormal Abnormal conduction: complete RBBB ST segments: ST segments: NormalOther findings: Other findings: prolonged qTc interval Lab Interpretation Abnormal (test code = 12655-3) [facility] [id number] 02:26:00 Test Item Value Reference Range Interpretation Comments Urine culture (test SEE COMMENT Bacteriu bartolo screen code = 1333088) negative. [facility] RNA [Presence] in Respiratory specimen by HELENA with probe [id number] 00:33:54 Test Item Value Reference Range Interpretation Comments SARS-CoV-2 (COVID-19) RNA Not detected [Presence] in Respiratory specimen by HELENA with probe detection (test code = 55817-3) 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 employed in a Unknown healthcare setting (test code = 06979-2) Whether the patient has symptoms Unknown related to condition of interest (test code = 26012-0) Whether the patient was Unknown hospitalized for condition of interest (test code = 22941-6) Whether the patient was admitted Unknown to intensive care unit (ICU) for condition of interest (test code = 16770-3) Whether patient resides in a Unknown congregate care setting (test code = 64818-6) status (test code = Unknown 28889-6) Date and time of symptom onset Unknown (test code = 22485-7) BROOKE [id number] 09:34:08 Test Item Value Reference Range Interpretation Comments MAGNESIUM (test code = 6785733513) 1.4 mg/dL 1.7-2.4 L Lab Interpretation (test code = Abnormal 14477-1) [facility]. METABOLIC PANEL (27453)2020-10-03 09:33:48 Test Item Value Reference Range Interpretation Comments NA (test code = 136 mmol/L 135-145 4818224859) K (test code = 3.3 mmol/L 3.5-5.0 L 4573389649) CL (test code = 100 mmol/L 98-108 9070241941) CO2 TOTAL (test code = 33 mmol/L 23-31 H 3496178055) AGAP (test code = 2-16 0756952968) BUN (test code = 3 mg/dL 7-23 L 5027107187) GLUCOSE (test code = 95 mg/dL 70-110 6188960257) CREATININE (test code = 0.47 mg/dL 0.50-1.04 L 6947809709) TOTAL BILI (test code = 1.5 mg/dL 0.1-1.1 H 7020299716) CALCIUM (test code = 8.1 mg/dL 8.6-10.6 L 0765779111) T PROTEIN (test code = 5.9 g/dL 6.3-8.2 L 2995807460) ALBUMIN (test code = 2.9 g/dL 3.5-5.0 L 4157033946) ALK PHOS (test code = 115 U/L 34-122 5901065774) ALTv (test code = 24 U/L 5-35 1742-6) AST(SGOT) (test code = 35 U/L 13-40 4140015469) eGFR (test code = mL/min/1.73m2 2418260357) SNOW (test code = SNOW) Association of [...] tests). Lab Interpretation Abnormal (test code = 06230-5) [facility] Test Item Value Reference Range Interpretation Comments PHOSPHORUS (test code = 9321182606) 2.8 mg/dL 2.5-5.0 Lab Interpretation (test code = Normal 67626-3) [facility] WITH [id number] 09:31:46 Test Item Value Reference Range Interpretation [...] (test code = 53.8 fL 39.0-49.9 H 79052-0) RDW-CV (test code = 19.9 % 12.0-15.5 H 788-0) PLT (test code = See_Comment L [Automated 777-3) message] The sy stem which generated this result transmitted reference range : 166 - 358 10*3/ ?L. The reference r davi was not used to interpret this result as normal/abnormal . MPV (test code = 10.9 fL 9.5-12.9 89087-7) IPF % (test code = 3.6 % 1.3-7.7 Platelet count 1286245591) measured by fluorescence method. NRBC/100 WBC (test See_Comment [Automat ed code = 9865972040) message] The system which generated this result transmitted reference range : 0.0 - 10.0 /100 WBCs. The refer ence range was not u sed to interpret th is result as normal/abnormal . NRBC x10^3 (test code See_Comment [Auto mated = 9790823114) message] The s ystem which generated this result transmitted reference range : 10*3/?L. The reference range was not used to interpret this result as normal/abnormal . GRAN MAT (NEUT) % 68.1 % (test code = 770-8) IMM GRAN % (test code 1.10 % = 6946120417) LYMPH % (test code = 15.5 % 736-9) MONO % (test code = 11.3 % 5905-5) EOS % (test code = 3.4 % 713-8) BASO % (test code = 0.6 % 706-2) GRAN MAT x10^3(ANC) 2.42 10*3/uL 1.88-7.09 (test code = 8561465570) IMM GRAN x10^3 (test 0.04 10*3/uL 0.00-0.06 code = 6098608504) LYMPH x10^3 (test code 0.55 10*3/uL 1.32-3.29 L = 731-0) MONO x10^3 (test code 0.40 10*3/uL 0.33-0.92 = 742-7) EOS x10^3 (test code = 0.12 10*3/uL 0.03-0.39 711-2) BASO x10^3 (test code <0.03 0.01-0.07 = 704-7) Lab Interpretation Abnormal (test code = 29378-6) [facility] WITH [id number] 10:47:09 Test Item Value Reference Range Interpretation [...] (test code = 52.2 fL 39.0-49.9 H 55740-4) RDW-CV (test code = 18.6 % 12.0-15.5 H 788-0) PLT (test code = See_Comment L [Automated 777-3) message] The sy stem which generated this result transmitted reference range : 166 - 358 10*3/ ?L. The reference r davi was not used to interpret this result as normal/abnormal . MPV (test code = 10.1 fL 9.5-12.9 24679-7) IPF % (test code = 3.2 % 1.3-7.7 Platelet count 8735022781) measured by fluorescence method. NRBC/100 WBC (test See_Comment [Automat ed code = 5171215896) message] The system which generated this result transmitted reference range : 0.0 - 10.0 /100 WBCs. The refer ence range was not u sed to interpret th is result as normal/abnormal . NRBC x10^3 (test code See_Comment [Auto mated = 1789308698) message] The s ystem which generated this result transmitted reference range : 10*3/?L. The reference range was not used to interpret this result as normal/abnormal . GRAN MAT (NEUT) % 65.1 % (test code = 770-8) IMM GRAN % (test code 1.20 % = 3163972500) LYMPH % (test code = 16.9 % 736-9) MONO % (test code = 11.5 % 5905-5) EOS % (test code = 4.5 % 713-8) BASO % (test code = 0.8 % 706-2) GRAN MAT x10^3(ANC) 1.58 10*3/uL 1.88-7.09 L (test code = 9181842690) IMM GRAN x10^3 (test 0.03 10*3/uL 0.00-0.06 code = 7429796029) LYMPH x10^3 (test code 0.41 10*3/uL 1.32-3.29 L = 731-0) MONO x10^3 (test code 0.28 10*3/uL 0.33-0.92 L = 742-7) EOS x10^3 (test code = 0.11 10*3/uL 0.03-0.39 711-2) BASO x10^3 (test code <0.03 0.01-0.07 = 704-7) POLYCHROMASIA (test 2+ See_Comment [Automa josemanuel code = 71595-0) message] The system which generated this result transmitted reference range : 2+. The referen ce range was not u sed to interpret th is result as normal/abnormal . LG GRAN LYMPHS (test Rare Rare code = 4220561883) Lab Interpretation Abnormal (test code = 31902-9) [facility]. METABOLIC PANEL (47444)2020-10-02 10:19:28 Test Item Value Reference Range Interpretation Comments NA (test code = 135 mmol/L 135-145 5481466180) K (test code = 3.4 mmol/L 3.5-5.0 L 9295075586) CL (test code = 104 mmol/L 98-108 3066484048) CO2 TOTAL (test code = 27 mmol/L 23-31 9281024378) AGAP (test code = 2-16 4719919980) BUN (test code = 4 mg/dL 7-23 L 7321923621) GLUCOSE (test code = 97 mg/dL 70-110 7060361481) CREATININE (test code = 0.45 mg/dL 0.50-1.04 L 4370688759) TOTAL BILI (test code = 1.7 mg/dL 0.1-1.1 H 4909345492) CALCIUM (test code = 8.2 mg/dL 8.6-10.6 L 0152740860) T PROTEIN (test code = 6.0 g/dL 6.3-8.2 L 0144712727) ALBUMIN (test code = 3.1 g/dL 3.5-5.0 L 1951112882) ALK PHOS (test code = 120 U/L 34-122 7802564319) ALTv (test code = 26 U/L 5-35 1742-6) AST(SGOT) (test code = 39 U/L 13-40 9435833264) eGFR (test code = mL/min/1.73m2 3846484163) SNOW (test code = SNOW) Association of [...] tests). Lab Interpretation Abnormal (test code = 23557-4) [facility] [id number] 02:50:27COVID DMT InterpretationInterpretation/Recommendations: Molecular NAAT Tests for [...] testing the patient has had at [facility], including molecular NAAT testing (more commonly known as PCR testing and Rapid ID Now testing) and antibody testing. It does not take into account any testingthat a patient has had outside of the [facility] medical record. [facility] LABORATORY SERVICESCOVID [id number]-ZzE-9 NAAT (no units) ? ? Date ? Value ? 02/13/2020 ? Not Detected ? SARS-CoV-2 Rapid ID NOW (no units) ? ? Date ? Value ? 09/29/2020 ? Not Detected ? ? ? 08/10/2019 ? Not Detected ? [facility]OR[facility] WITH [id number] 10:31:29 Test Item Value Reference Range Interpretation [...] (test code = 52.3 fL 39.0-49.9 H 91195-8) RDW-CV (test code = 18.4 % 12.0-15.5 H 788-0) PLT (test code = See_Comment LL [Automated 777-3) message] The sy stem which generated this result transmitted reference range : 166 - 358 10*3/ ?L. The reference r davi was not used to interpret this result as normal/abnormal . MPV (test code = 11.2 fL 9.5-12.9 90164-5) IPF % (test code = 3.9 % 1.3-7.7 Platelet count 3030617920) measured by fluorescence method. NRBC/100 WBC (test See_Comment [Automat ed code = 9187937607) message] The system which generated this result transmitted reference range : 0.0 - 10.0 /100 WBCs. The refer ence range was not u sed to interpret th is result as normal/abnormal . NRBC x10^3 (test code <0.01 See_Comment [Auto mated = 2280976897) message] The s ystem which generated this result transmitted reference range : 10*3/?L. The reference range was not used to interpret this result as normal/abnormal . GRAN MAT (NEUT) % 57.5 % (test code = 770-8) IMM GRAN % (test code 0.50 % = 6368854351) LYMPH % (test code = 20.7 % 736-9) MONO % (test code = 13.3 % 5905-5) EOS % (test code = 6.9 % 713-8) BASO % (test code = 1.1 % 706-2) GRAN MAT x10^3(ANC) 1.08 10*3/uL 1.88-7.09 L (test code = 9706520638) IMM GRAN x10^3 (test <0.03 0.00-0.06 code = 6389012147) LYMPH x10^3 (test code 0.39 10*3/uL 1.32-3.29 L = 731-0) MONO x10^3 (test code 0.25 10*3/uL 0.33-0.92 L = 742-7) EOS x10^3 (test code = 0.13 10*3/uL 0.03-0.39 711-2) BASO x10^3 (test code <0.03 0.01-0.07 = 704-7) BASO STIPPLING (test Present A code = 703-9) ELLIPTO/OVAL (test 2+ See_Comment A [Automat ed code = 01497-7) message] The system which generated this result transmitted reference range : (none). The reference range was not used to interpret this result as normal/abnormal . POLYCHROMASIA (test 2+ See_Comment [Automa josemanuel code = 79496-4) message] The system which generated this result transmitted reference range : 2+. The referen ce range was not u sed to interpret th is result as normal/abnormal . Lab Interpretation Abnormal (test code = 20079-4) [facility]. METABOLIC PANEL (70610)2020-10-01 09:19:22 Test Item Value Reference Range Interpretation Comments NA (test code = 135 mmol/L 135-145 8337042969) K (test code = 4.0 mmol/L 3.5-5.0 3879142150) CL (test code = 107 mmol/L 98-108 4193464505) CO2 TOTAL (test code = 24 mmol/L 23-31 0027890556) AGAP (test code = 2-16 5135953290) BUN (test code = 7 mg/dL 7-23 7989029181) GLUCOSE (test code = 93 mg/dL 70-110 8886539929) CREATININE (test code = 0.47 mg/dL 0.50-1.04 L 2229453653) TOTAL BILI (test code = 1.6 mg/dL 0.1-1.1 H 9850814144) CALCIUM (test code = 8.1 mg/dL 8.6-10.6 L 7554379065) T PROTEIN (test code = 5.8 g/dL 6.3-8.2 L 5587774769) ALBUMIN (test code = 2.8 g/dL 3.5-5.0 L 8264598786) ALK PHOS (test code = 106 U/L 34-122 5448797521) ALTv (test code = 23 U/L 5-35 1742-6) AST(SGOT) (test code = 39 U/L 13-40 4129791131) eGFR (test code = mL/min/1.73m2 7158241387) SNOW (test code = SNOW) Association of [...] tests). Lab Interpretation Abnormal (test code = 18994-2) [facility] [id number] 20:47:45 Test Item Value Reference Range Interpretation Comments TROPONIN I (test 0.002 ng/mL See_Comment [Automated code = 2347308619) message] The system which generated this result [...] ? Lab Interpretation Normal (test code = 33995-4) [facility] [id number] 19:11:57 Test Item Value Reference Range Interpretation Comments URINE CULTURE (test code <10,000 CFU/mL = 630-4) Gram-Positive Cocci [facility] BY [id number] 18:17:03 Test Item Value Reference Range Interpretation Comments Campylobacter (jejuni, Negative Negative, coli and upsaliensis) Indeterminate, (test code = 49374-5) See comment Plesiomonas shigelloides Negative Negative, (test code = 49145-1) Indeterminate, See comment Salmonella (test code = Negative Negative, 73659-9) Indeterminate, See comment Yersinia enterocolitica Negative Negative, (test code = 68659-8) Indeterminate, See comment Vibrio (test code = Negative Negative, 14845-2) Indeterminate, See comment Vibrio cholerae (test Negative Negative, code = 15231-2) Indeterminate, See comment Enteroaggregative E. Negative Negative, coli (EAEC) (test code = Indeterminate, 52140-2) See comment Enteropathogenic E. coli Negative Negative, N/A, (EPEC) (test code = Indeterminate, 99159-7) See comment Enterotoxigenic E. coli Negative Negative, (ETEC) (test code = Indeterminate, 25524-9) See comment Shiga toxin-Producing E. Negative Negative, coli (STEC) (test code = Indeterminate, 73838-5) See comment Shigella/Enteroinvasive Negative Negative, E. coli (EIEC) (test Indeterminate, code = 21525-0) See comment Cryptosporidium (test Negative Negative, code = 43760-4) Indeterminate, See comment Cyclospora cayetanensis Negative Negative, (test code = 30691-6) Indeterminate, See comment Entamoeba histolytica Negative Negative, (test code = 04896-7) Indeterminate, See comment Giardia lamblia (test Negative Negative, code = 10160-9) Indeterminate, See comment Adenovirus F 40/41 (test Negative Negative, code = 13383-9) Indeterminate, See comment Astrovirus (test code = Negative Negative, 28125-2) Indeterminate, See comment Norovirus GI/GII (test Negative Negative, code = 22671-4) Indeterminate, See comment Rotavirus A (test code = Negative Negative, 44201-1) Indeterminate, See comment Sapovirus (test code = Negative Negative, 53137-8) Indeterminate, See comment Clostridioides Positive Negative, A (Clostridium) difficile Indeterminate, Toxin A/B (test code = See comment 14579-8) SNOW (test code = SNOW) Based on [employer] Group[employer] GI Panel package insert, the FilmArray GI [...] Clostridium difficile toxin A/B Detected. Based the [employer]ep[employer]istid Xpert C. difficile/Epi assay package insert, Xpert C. difficile/Epi assay detects the toxin B gene (tcdB), the binary toxin gene (CDT), and the ocaosf-juxw-ahrb deletion at nucleotide 117 within the gene [...] organism. Lab Interpretation (test Abnormal code = 60937-3) [facility] (GUAIAC) [id number] 14:26:32 Test Item Value Reference Range Interpretation Comments Occult (guaiac) Blood (test code = Negative Negative 2335-8) Lab Interpretation (test code = Normal 27083-5) [facility] WITH [id number] 13:54:12 Test Item Value Reference Range Interpretation Comments WBC (test code = See_Comment L [Automated 2490-2) message] The sy stem which generated this result transmitted reference range : 4.30 - 11.10 10*3/?L. The reference range was not used to interpret this result as normal/abnormal . RBC (test code = See_Comment L [Automated 899-8) message] The sy stem which generated this [...] (test code = 52.9 fL 39.0-49.9 H 20571-5) RDW-CV (test code = 18.3 % 12.0-15.5 H 788-0) PLT (test code = See_Comment LL [Automated 777-3) message] The sy stem which generated this result transmitted reference range : 166 - 358 10*3/ ?L. The reference r davi was not used to interpret this result as normal/abnormal . MPV (test code = 10.8 fL 9.5-12.9 71603-6) IPF % (test code = 4.2 % 1.3-7.7 Platelet count 8916531718) measured by fluorescence method. NRBC/100 WBC (test See_Comment [Automat ed code = 7384427412) message] The system which generated this result transmitted reference range : 0.0 - 10.0 /100 WBCs. The refer ence range was not u sed to interpret th is result as normal/abnormal . NRBC x10^3 (test code <0.01 See_Comment [Auto mated = 9212945422) message] The s ystem which generated this result transmitted reference range : 10*3/?L. The reference range was not used to interpret this result as normal/abnormal . GRAN MAT (NEUT) % 60.0 % (test code = 770-8) IMM GRAN % (test code 0.40 % = 0835489993) LYMPH % (test code = 20.6 % 736-9) MONO % (test code = 11.3 % 5905-5) EOS % (test code = 6.9 % 713-8) BASO % (test code = 0.8 % 706-2) GRAN MAT x10^3(ANC) 1.49 10*3/uL 1.88-7.09 L (test code = 0625793005) IMM GRAN x10^3 (test <0.03 0.00-0.06 code = 8396701288) LYMPH x10^3 (test code 0.51 10*3/uL 1.32-3.29 L = 731-0) MONO x10^3 (test code 0.28 10*3/uL 0.33-0.92 L = 742-7) EOS x10^3 (test code = 0.17 10*3/uL 0.03-0.39 711-2) BASO x10^3 (test code <0.03 0.01-0.07 = 704-7) Lab Interpretation Abnormal (test code = 71897-0) [facility]. METABOLIC PANEL (13280)2020-09-30 12:47:49 Test Item Value Reference Range Interpretation Comments NA (test code = 135 mmol/L 135-145 0949267565) K (test code = 4.0 mmol/L 3.5-5.0 7723935825) CL (test code = 108 mmol/L 98-108 4278893528) CO2 TOTAL (test code = 23 mmol/L 23-31 5493686586) AGAP (test code = 2-16 5045400763) BUN (test code = 8 mg/dL 7-23 9761592004) GLUCOSE (test code = 109 mg/dL 70-110 9990137367) CREATININE (test code = 0.52 mg/dL 0.50-1.04 3129425735) TOTAL BILI (test code = 1.7 mg/dL 0.1-1.1 H 9867911799) CALCIUM (test code = 8.0 mg/dL 8.6-10.6 L 1775950792) T PROTEIN (test code = 5.7 g/dL 6.3-8.2 L 0465425200) ALBUMIN (test code = 2.7 g/dL 3.5-5.0 L 7193844739) ALK PHOS (test code = 106 U/L 34-122 0563946854) ALTv (test code = 22 U/L 5-35 1742-6) AST(SGOT) (test code = 34 U/L 13-40 5038521031) eGFR (test code = mL/min/1.73m2 6277554519) SNOW (test code = SNOW) Association of [...] tests). Lab Interpretation Abnormal (test code = 79537-3) [facility]FECAL [id number] 11:49:39 Test Item Value Reference Range Interpretation Comments Fecal Leukocytes (test code = Positive Negative A 9883943279) Lab Interpretation (test code = Abnormal 83526-1) [facility] HospitalN-TERMINAL [id number] 10:20:53 Test Item Value Reference Range Interpretation Comments NT-proBNP (test code 68 pg/mL See_Comment [Autom ated = 9437004715) message] The system which generated this result transmitted reference range : <=125. The reference range was not used to interpret this result as normal/abnormal . SNOW (test code = SNOW) Biotin has been reported to cause a negative bias, interpret results relative to patient's use of biotin. Lab Interpretation Normal (test code = 20504-9) [facility] HospitalCLOSTRIDIUM DIFFICILE [id number] 05:18:16 Test Item Value Reference Range Interpretation Comments Clostridioides (Clostridium) Negative Negative difficile (test code = 01650-8) Lab Interpretation (test code = Normal 30698-6) [facility]PO[facility] GLUCOSE (AUTOMATED)2020-09-30 00:54:42 Test Item Value Reference Range Interpretation Comments POCT GLU (test code = 0119692107) 111 mg/dL 70-110 H Lab Interpretation (test code = Abnormal 77882-1) [facility] HospitalBAC METABOLIC PANEL (NA, K, CL, CO2, GLUCOSE, BUN, CREATININE, CA)2020-09-29 22:08:22 Test Item Value Reference Range Interpretation Comments NA (test code = 135 mmol/L 135-145 6378955733) K (test code = 3.7 mmol/L 3.5-5.0 6831318604) CL (test code = 108 mmol/L 98-108 2342651968) CO2 TOTAL (test code = 22 mmol/L 23-31 L 4465698741) AGAP (test code = 2-16 4972581121) BUN (test code = 9 mg/dL 7-23 3802092808) GLUCOSE (test code = 104 mg/dL 70-110 6638483445) CREATININE (test code = 0.51 mg/dL 0.50-1.04 5991356792) CALCIUM (test code = 7.9 mg/dL 8.6-10.6 L 6772870605) eGFR (test code = mL/min/1.73m2 6270884447) SNOW (test code = SNOW) Association of [...] tests). Lab Interpretation Abnormal (test code = 82578-0) [facility]HEMOGLOBIN2021-06-21 21:41:20 Test Item Value Reference Range Interpretation Comments HGB (test code = 718-7) 7.4 g/dL 11.6-15.0 L Lab Interpretation (test code = Abnormal 75236-4) [facility] HospitalVITAMIN B12, [id number] 20:39:52 Test Item Value Reference Range Interpretation Comments VIT B12 (test code = 212 pg/mL 240-930 L 6586510987) SNOW (test code = SNOW) Biotin has been reported to cause a positive bias, interpret results relative to patient's use of biotin. Lab Interpretation (test Abnormal code = 16881-9) [facility] HospitalDIFF CONSULT [id number] 17:24:18 LEUKOPENIA WITH ABSOLUTE LYMPHOPENIA, REACTIVE MONOCYTES [...] NORMAL IPF CONSISTENT WITH LIVER DYSFUNCTION.[facility] HospitalC-REACTIVE [id number] 17:01:56 Test Item Value Reference Range Interpretation Comments CRP (test code = 7610824023) 4.7 mg/dL <0.8 H Lab Interpretation (test code = Abnormal 66713-1) [facility] HospitalVITAMIN D, [id number] 16:43:29 Test Item Value Reference Range Interpretation Comments VIT D 25OH (test code = <13 25-80 L 08843-7) SNOW (test code = SNOW) Deficiency: <20 ng/mLInsufficiency: 20-24 ng/mLOptimal: 25-80 ng/mL Lab Interpretation (test Abnormal code = 13062-9) [facility] HospitalPROCALCITONIN2021-06-21 16:15:30 Test Item Value Reference Range Interpretation Comments Procalcitonin (test 0.08 ng/mL <0.07 H code = 1968494290) SNOW (test code = SNOW) INTERPRETATION OF [...] lung abscess/empyema. For further information please refer to:[email or web address] Lab Interpretation Abnormal (test code = 29074-8) [facility] HospitalOSMOLALITY [id number] 15:35:14 Test Item Value Reference Range Interpretation Comments OSMO U (test code = See_Comment [Automa josemanuel message] 3459522140) The system whic h generated this result transmitted ref erence range: 50-1,100 mOsm/kg. The re ference range was not u sed to interpret this result as normal/abnor mal. Lab Interpretation (test Normal code = 86931-4) [facility] HospitalTROPONIN [id number] 14:04:56 Test Item Value Reference Range Interpretation Comments TROPONIN I (test 0.002 ng/mL See_Comment [Automated code = 6675153021) message] The system which generated this result [...] ? Lab Interpretation Normal (test code = 95307-3) [facility] HospitalCT ABDOMEN PELVIS W [id number] 13:37:17 1. ?Findings concerning for infectious or [...] reviewed this study and agree with theabove report.[facility] WITH [id number] 11:41:25 Test Item Value Reference Range Interpretation [...] (test code = 52.4 fL 39.0-49.9 H 68011-2) RDW-CV (test code = 18.2 % 12.0-15.5 H 788-0) PLT (test code = See_Comment LL [Automated 777-3) message] The system which generated this result transmit josemanuel reference range : 166 - 358 10*3/ ?L. The reference range was not u sed to interpret th is result as normal/abnormal . MPV (test code = Not Measure d 00994-2) IPF % (test code = 4.3 % 1.3-7.7 Platelet count 4563355013) measured by fluorescence method. NRBC/100 WBC (test See_Comment [Automat ed code = 9837839368) message] The system which generated this result transmit josemanuel reference range : 0.0 - 10.0 /100 WBCs. The reference range was not used to interpret this result as normal/abnormal . NRBC x10^3 (test code <0.01 See_Comment [Auto mated = 4257772483) message] The system which generated this result transmit josemanuel reference range : 10*3/?L. The reference range was not used to interpret this result as normal/abnormal . GRAN MAT (NEUT) % 74.4 % (test code = 770-8) IMM GRAN % (test code 0.50 % = 2823635302) LYMPH % (test code = 10.3 % 736-9) MONO % (test code = 12.3 % 5905-5) EOS % (test code = 2.0 % 713-8) BASO % (test code = 0.5 % 706-2) GRAN MAT x10^3(ANC) 3.02 10*3/uL 1.88-7.09 (test code = 0212992623) IMM GRAN x10^3 (test <0.03 0.00-0.06 code = 8031119522) LYMPH x10^3 (test 0.42 10*3/uL 1.32-3.29 L code = 731-0) MONO x10^3 (test code 0.50 10*3/uL 0.33-0.92 = 742-7) EOS x10^3 (test code 0.08 10*3/uL 0.03-0.39 = 711-2) BASO x10^3 (test code <0.03 0.01-0.07 = 704-7) PLT ESTIMATE (test Decreased Normal A code = 9317-9) SNOW (test code = SNOW) CBC smear reduced platelet Lab Interpretation Abnormal (test code = 27826-3) [facility] HospitalN-TERMINAL [id number] 11:07:24 Test Item Value Reference Range Interpretation Comments NT-proBNP (test code 79 pg/mL See_Comment [Autom ated = 2878760066) message] The system which generated this result transmitted reference range : <=125. The reference range was not used to interpret this result as normal/abnormal . SNOW (test code = SNOW) Biotin has been reported to cause a negative bias, interpret results relative to patient's use of biotin. Lab Interpretation Normal (test code = 43314-6) [facility]IRON [id number] 11:04:41 Test Item Value Reference Range Interpretation Comments IRON (test code = 8905576776) 31 ug/dL 50-160 L TIBC (test code = 2468037802) 295 ug/dL 250-410 % FE SAT (test code = 0926243487) 11 % 20-50 L Lab Interpretation (test code = Abnormal 52120-3) [facility] HospitalPROTEIN CREAT RATIO URINE [id number] 10:57:19 Test Item Value Reference Range Interpretation Comments T. PROT U (test code = 2888-6) 9 mg/dL CREAT U (test code = 1407307573) 187.5 mg/dL Protein/Creatinine Ratio Urine 0.0-2.0 (test code = 2883667249) [facility] HospitalSODIUM, URINE [id number] 10:53:21 Test Item Value Reference Range Interpretation Comments NA URINE (test code = 3947960116) 30 mmol/L [facility] HospitalSEDIMENTATION [id number] 10:33:04 Test Item Value Reference Range Interpretation Comments ESR (test code = See_Comment [Automated message] 6698235156) The system ic h generated this result transmitted ref erence range: 0 - 20 m m/HR. The reference r davi was not used to interpret this result as normal/abnor mal. Lab Interpretation (test Normal code = 30041-3) [facility] HospitalPROTHROMBIN TIME / [id number] 09:43:39 Test Item Value Reference Range Interpretation Comments PROTIME PATIENT (test See_Comment H [Auto mated message] code = 5964-2) The system wh ich generated this result transmitted ref erence range: 12.0 - 1 4.7 Seconds. The reference range was not used to int erpret this result as normal/abnormal . INR (test code = 6301-6) Nor mal INR <1.1; Warfarin Therap eutic range 2.0 to 3. 0 or 2.5 to 3.5, dep ending upon the indica tions. Lab Interpretation (test Abnormal code = 02534-8) [facility] HospitalLactic Acid Whole [id number] 08:42:38 Test Item Value Reference Range Interpretation Comments LACTIC ACID (test code = 1.47 mmol/L 0.50-2.20 3009067137) Lab Interpretation (test code = Normal 84191-0) [facility] HospitalFERRITIN [id number] 07:31:09 Test Item Value Reference Range Interpretation Comments FERRITIN (test code = 12.2 ng/mL 11.0-264.0 6706218969) SNOW (test code = SNOW) Biotin has been reported to cause a negative bias, interpret results relative to patient's use of biotin. Lab Interpretation (test Normal code = 68601-3) [facility] HospitalTHYROID STIMULATING [id number] 07:27:08 Test Item Value Reference Range Interpretation Comments TSH (test code = See_Comment [Automated message] 0689458625) The system [employer] generated this result transmitted ref erence range: 0.45 - 4 .70 mIU/L. The refe rence range was not u sed to interpret this result as normal/abnor mal. Lab Interpretation (test Normal code = 58631-9) [facility] HospitalGLYCOSYLATED HEMOGLOBIN (A1C)2020-09-29 07:05:40 Test Item Value Reference Range Interpretation Comments HGB A1C (test code = 5.0 % 4.0-5.7 4548-4) SNOW (test code = SNOW) Reference RangesNormal: <5.7%Prediabetes: 5.7 - 6.4%Diabetes: > 6.5% Lab Interpretation (test Normal code = 57070-8) [facility] HospitalURIC [id number] 07:05:35 Test Item Value Reference Range Interpretation Comments URIC ACID (test code = 7217733277) 4.2 mg/dL 2.9-6.0 Lab Interpretation (test code = Normal 21324-7) [facility] HospitalCREATINE [id number] 07:05:30 Test Item Value Reference Range Interpretation Comments CK (test code = 7130306886) 192 U/L 33-194 Lab Interpretation (test code = Normal 93607-9) [facility] HospitalN-TERMINAL [id number] 07:05:30 Test Item Value Reference Range Interpretation Comments NT-proBNP (test code 94 pg/mL See_Comment [Autom ated = 8066489266) message] The system which generated this result transmitted reference range : <=125. The reference range was not used to interpret this result as normal/abnormal . SNOW (test code = SNOW) Biotin has been reported to cause a negative bias, interpret results relative to patient's use of biotin. Lab Interpretation Normal (test code = 45406-3) [facility] HospitalMAGNESIUM2021-06-21 07:04:24 Test Item Value Reference Range Interpretation Comments MAGNESIUM (test code = 0983802562) 1.8 mg/dL 1.7-2.4 Lab Interpretation (test code = Normal 15949-9) [facility] HospitalPHOSPHORUS2021-06-21 07:03:39 Test Item Value Reference Range Interpretation Comments PHOSPHORUS (test code = 2812979316) 2.2 mg/dL 2.5-5.0 L Lab Interpretation (test code = Abnormal 44146-1) [facility] HospitalLIPID PANEL (43391)(TOTAL CHOLESTEROL, TRIGLYCERIDES, HDL)2020-09-29 06:56:06 Test Item Value Reference Range Interpretation Comments CHOL (test code = 132 mg/dL 120-200 9190361236) HDL (test code = 41 mg/dL >50 L 3359257408) HDLC RATIO (test code = See_Comment [Au tomated message] 5078242233) The system [employer] generated this result transmit josemanuel reference range : <=4.5. The refe rence range was not u sed to interpret th is result as normal/abnormal . TRIG (test code = 73 mg/dL 30-170 0155532534) LDL CHOL (test code = 76 mg/dL See_Comment [Auto mated message] 50701-4) The system [employer] generated this result transmit josemanuel reference range : <=160. The refe rence range was not u sed to interpret th is result as normal/abnormal . VLDL (test code = 15 mg/dL 5-60 9586023830) Lab Interpretation (test Abnormal code = 94207-4) [facility] HospitalCOVID-19 (ID NOW RAPID TESTING)2020-09-29 06:24:26 Test Item Value Reference Range Interpretation Comments SARS-CoV-2 Rapid ID NOW Not Detected Not Detected (test code = 71012-1) SNOW (test code = SNOW) ID NOW COVID-19 Assay is an isothermal nucleic acid amplification test intended for the qualitative detection of nucleic acid from SARS-CoV-2 viral RNA in nasopharyngeal (DATABASE REPORT WRITER) specimens. It is used under Emergency Use [...] indicated. Lab Interpretation Normal (test code = 81843-0) [facility] HospitalURINALYSIS2021-06-21 04:43:31 Test Item Value Reference Range Interpretation Comments APPEARANCE (test code = Clear Clear 4787188298) COLOR (test code = Rosanne Yellow A 5567456607) PH (test code = 4.8-8.0 5021035486) SP GRAVITY (test code = 1.003-1.030 3169985746) GLU U QUAL (test code = Normal Normal 4339716801) BLOOD (test code = Negative Negative 2744003057) KETONES (test code = Negative Negative 0797032960) PROTEIN (test code = 30 mg/dL Negative A 2887-8) UROBILIN (test code = Normal Normal 0165667420) BILIRUBIN (test code = Negative Negative 2321803078) NITRITE (test code = Negative Negative 6565833079) LEUK RANULFO (test code = 25/uL Negative A 8447044825) RBC/HPF (test code = See_Comment [Autom ated message] 5246365283) The system [employer] generated this result transmitted ref erence range: 0 - 3 HP F. The reference range was not used to int erpret this result as normal/abnormal . WBC/HPF (test code = See_Comment [Autom ated message] 2164666072) The system ic h generated this result transmitted ref erence range: 0 - 5 HP F. The reference range was not used to int erpret this result as normal/abnormal . BACTERIA (test code = Few Negative A 4502337297) MUCOUS (test code = Moderate Negative LPF A 3540217744) SQ EPITH (test code = HPF 5849543434) Lab Interpretation (test Abnormal code = 57902-4) [facility] WITH [id number] 04:39:35 Test Item Value Reference Range Interpretation [...] (test code = 51.3 fL 39.0-49.9 H 70381-0) RDW-CV (test code = 18.1 % 12.0-15.5 H 788-0) PLT (test code = See_Comment L [Automated 777-3) message] The system which generated this result transmit joseamnuel reference range : 166 - 358 10*3/ ?L. The reference range was not u sed to interpret th is result as normal/abnormal . MPV (test code = 11.1 fL 9.5-12.9 39553-2) IPF % (test code = 3.7 % 1.3-7.7 Platelet count 0203647716) measured by fluorescence method. NRBC/100 WBC (test See_Comment [Automat ed code = 7426493863) message] The system which generated this result transmit josemanuel reference range : 0.0 - 10.0 /100 WBCs. The reference range was not used to interpret this result as normal/abnormal . NRBC x10^3 (test code <0.01 See_Comment [Auto mated = 4492497588) message] The system which generated this result transmit josemanuel reference range : 10*3/?L. The reference range was not used to interpret this result as normal/abnormal . GRAN MAT (NEUT) % 76.4 % (test code = 770-8) IMM GRAN % (test code 0.80 % = 8636969538) LYMPH % (test code = 9.4 % 736-9) MONO % (test code = 11.3 % 5905-5) EOS % (test code = 1.5 % 713-8) BASO % (test code = 0.6 % 706-2) GRAN MAT x10^3(ANC) 4.07 10*3/uL 1.88-7.09 (test code = 1728979495) IMM GRAN x10^3 (test 0.04 10*3/uL 0.00-0.06 code = 0879088979) LYMPH x10^3 (test 0.50 10*3/uL 1.32-3.29 L code = 731-0) MONO x10^3 (test code 0.60 10*3/uL 0.33-0.92 = 742-7) EOS x10^3 (test code 0.08 10*3/uL 0.03-0.39 = 711-2) BASO x10^3 (test code 0.03 10*3/uL 0.01-0.07 = 704-7) PLT ESTIMATE (test Decreased Normal A code = 9317-9) SNOW (test code = SNOW) Juan slide adgrees to decreased Platelet Lab Interpretation Abnormal (test code = 15479-7) [facility]. METABOLIC PANEL (04134)2020-09-29 04:25:42 Test Item Value Reference Range Interpretation Comments NA (test code = 134 mmol/L 135-145 L 1827638428) K (test code = 3.2 mmol/L 3.5-5.0 L 4059663911) CL (test code = 104 mmol/L 98-108 0430742071) CO2 TOTAL (test code = 24 mmol/L 23-31 3122839294) AGAP (test code = 2-16 1030408565) BUN (test code = 8 mg/dL 7-23 5668384506) GLUCOSE (test code = 105 mg/dL 70-110 3780662334) CREATININE (test code = 0.51 mg/dL 0.50-1.04 3297228544) TOTAL BILI (test code = 2.5 mg/dL 0.1-1.1 H 2399050303) CALCIUM (test code = 8.2 mg/dL 8.6-10.6 L 4440049768) T PROTEIN (test code = 6.3 g/dL 6.3-8.2 5893656195) ALBUMIN (test code = 3.1 g/dL 3.5-5.0 L 9444825424) ALK PHOS (test code = 136 U/L 34-122 H 4811558026) ALTv (test code = 24 U/L 5-35 1742-6) AST(SGOT) (test code = 30 U/L 13-40 0445076900) eGFR (test code = mL/min/1.73m2 0682905059) SNOW (test code = SNOW) Association of [...] tests). Lab Interpretation Abnormal (test code = 76059-4) [facility] HospitalLIPASE2021-06-21 04:25:42 Test Item Value Reference Range Interpretation Comments LIPASE (test code = 0307474421) 102 U/L 0-220 Lab Interpretation (test code = Normal 98649-9) [facility] HospitalSARS-CoV-2 (COVID-19) RNA [Presence] in Respiratory specimen by HELENA with probe [id number] 00:49:19 Test Item Value Reference Range Interpretation Comments SARS-CoV-2 (COVID-19) RNA Not detected Not-Detected [Presence] in Respiratory specimen by HELENA with probe detection (test code = 30334-9) 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 employed in a healthcare setting (test code = 58268-2) Whether the patient has symptoms related to condition of interest (test code = 17734-0) Patient was hospitalized because of this condition (test code = 59431-0) Whether the patient was admitted to intensive care unit (ICU) for condition of interest (test code = 15412-9) Whether patient resides in a congregate care setting (test code = 41223-1) BROOKE CHOUSARS-CoV-2 (COVID-19) RNA [Presence] in Respiratory specimen by HELENA with probe [id number] 02:47:43 Test Item Value Reference Range Interpretation Comments SARS-CoV-2 (COVID-19) RNA Not detected Not-Detected [Presence] in Respiratory specimen by HELENA with probe detection (test code = 55127-4) [facility] CHOUSARS-CoV-2 (COVID-19) RNA [Presence] in Respiratory specimen by HELENA with probe [id number] 16:32:37 Test Item Value Reference Range Interpretation Comments SARS-CoV-2 (COVID-19) RNA Not detected Not-Detected [Presence] in Respiratory specimen by HELENA with probe detection (test code = 04288-7) [facility] CHOUSARS-CoV-2 (COVID-19) RNA [Presence] in Respiratory specimen by HELENA with probe [id number] 05:29:57 Test Item Value Reference Range Interpretation Comments SARS-CoV-2 (COVID-19) RNA Not detected Not-Detected [Presence] in Respiratory specimen by HELENA with probe detection (test code = 83362-3) [facility] ABDOMEN PELVIS W [id number] 19:27:49 1. ?No evidence of small bowel [...] This was similarly noted on the prior studywith no associatedcolonic wall thickening. VESSELS: The main [...] cholecystectomy. No biliarydilatation.PANCREAS: No ductal dilation or masses.SP CHUN: The spleen is enlarged at 20 cm.ADRENAL [...] reviewed this study and agree with the abovereport.[facility] WITH [id number] 11:56:00 Test Item Value Reference Range Interpretation [...] (test code = 58.0 fL 39-49.9 H 24243-1) RDW-CV (test code = 16.6 % 12-15.5 H 788-0) PLT (test code = See_Comment LL [Automated 777-3) message] The sy stem which generated this result transmitted reference range : 166 - 358 10*3/ ?L. The reference r davi was not used to interpret this result as normal/abnormal . MPV (test code = 11.0 fL 9.5-12.9 42305-7) IPF % (test code = 5.5 % 1.3-7.7 Platelet count 7634506661) measured by fluorescence method. NRBC/100 WBC (test See_Comment [Automat ed code = 7000537700) message] The system which generated this result transmitted reference range : 0.0 - 10.0 /100 WBCs. The refer ence range was not u sed to interpret th is result as normal/abnormal . NRBC x10^3 (test code <0.01 See_Comment [Auto mated = 1154220405) message] The s ystem which generated this result transmitted reference range : 10*3/?L. The reference range was not used to interpret this result as normal/abnormal . GRAN MAT (NEUT) % 57.6 % (test code = 770-8) IMM GRAN % (test code 0.00 % = 1149735774) LYMPH % (test code = 27.1 % 736-9) MONO % (test code = 11.8 % 5905-5) EOS % (test code = 3.1 % 713-8) BASO % (test code = 0.4 % 706-2) GRAN MAT x10^3(ANC) 1.47 10*3/uL 1.88-7.09 L (test code = 5002370968) IMM GRAN x10^3 (test <0.03 0-0.06 code = 9003172111) LYMPH x10^3 (test code 0.69 10*3/uL 1.32-3.29 L = 731-0) MONO x10^3 (test code 0.30 10*3/uL 0.33-0.92 L = 742-7) EOS x10^3 (test code = 0.08 10*3/uL 0.03-0.39 711-2) BASO x10^3 (test code <0.03 0.01-0.07 = 704-7) Lab Interpretation Abnormal (test code = 51139-8) [facility] HospitalCOMP. METABOLIC PANEL (84041)2019-08-11 10:42:00 Test Item Value Reference Range Interpretation Comments NA (test code = 138 mmol/L 135-145 8165811727) K (test code = 3.8 mmol/L 3.5-5 4610917547) CL (test code = 108 mmol/L 98-108 5593664072) CO2 TOTAL (test code = 24 mmol/L 23-31 2341800881) AGAP (test code = 2-16 1208274480) BUN (test code = 10 mg/dL 7-23 2824174848) GLUCOSE (test code = 108 mg/dL 70-110 4545140838) CREATININE (test code = 0.43 mg/dL 0.5-1.04 L 5312375164) TOTAL BILI (test code = 2.5 mg/dL 0.1-1.1 H 9064725278) CALCIUM (test code = 8.4 mg/dL 8.6-10.6 L 4730224322) T PROTEIN (test code = 6.1 g/dL 6.3-8.2 L 7925692935) ALBUMIN (test code = 3.1 g/dL 3.5-5 L 1175568247) ALK PHOS (test code = 102 U/L 34-122 5818811641) ALTv (test code = 52 U/L 5-35 H 1742-6) AST(SGOT) (test code = 63 U/L 13-40 H 3829895287) eGFR Calculation mL/min/1.73m2 (Non-) (test code = 6958994477) eGFR Calculation mL/min/1.73m2 () (test code = 9873700146) SNOW (test code = SNOW) Association of [...] tests). Lab Interpretation Abnormal (test code = 25995-9) [facility] HospitalXR SMALL BOWEL [id number] 02:08:11 1. ?No bowel obstruction. No fluoroscopic [...] obstruction.No fluoroscopic images or fluoroscopic time.RL 6[address] UnHouston [facility] HospitalSEDIMENTATION [id number] 16:19:00 Test Item Value Reference Range Interpretation Comments ESR (test code = See_Comment [Automated message] 7307204790) The system [employer] generated this result transmitted ref erence range: 0 - 20 m m/HR. The reference r davi was not used to interpret this result as normal/abnor mal. Lab Interpretation (test Normal code = 54734-0) [facility] HospitalAbdominal 1 View - To confirm nasogastric [...] reviewed this study and agree with the abovereport.[facility] WITH [id number] 13:48:00 Test Item Value Reference Range Interpretation Comments WBC (test code = See_Comment L [Automated 4090-2) message] The system which generated this result [...] (test code = 58.4 fL 39-49.9 H 53124-1) RDW-CV (test code = 16.7 % 12-15.5 H 788-0) PLT (test code = See_Comment LL [Automated 777-3) message] The system which generated this result transmit josemanuel reference range : 166 - 358 10*3/ ?L. The reference range was not u sed to interpret th is result as normal/abnormal . MPV (test code = 10.5 fL 9.5-12.9 28969-8) IPF % (test code = 3.0 % 1.3-7.7 Platelet count 5299941104) measured by fluorescence method. NRBC/100 WBC (test See_Comment [Automat ed code = 3561397360) message] The system which generated this result transmit josemanuel reference range : 0.0 - 10.0 /100 WBCs. The reference range was not used to interpret this result as normal/abnormal . NRBC x10^3 (test code <0.01 See_Comment [Auto mated = 6399768210) message] The system which generated this result transmit josemanuel reference range : 10*3/?L. The reference range was not used to interpret this result as normal/abnormal . GRAN MAT (NEUT) % 57.1 % (test code = 770-8) IMM GRAN % (test code 0.40 % = 4683999244) LYMPH % (test code = 28.1 % 736-9) MONO % (test code = 10.4 % 5905-5) EOS % (test code = 3.6 % 713-8) BASO % (test code = 0.4 % 706-2) GRAN MAT x10^3(ANC) 1.42 10*3/uL 1.88-7.09 L (test code = 6375110881) IMM GRAN x10^3 (test <0.03 0-0.06 code = 9663228436) LYMPH x10^3 (test 0.70 10*3/uL 1.32-3.29 L code = 731-0) MONO x10^3 (test code 0.26 10*3/uL 0.33-0.92 L = 742-7) EOS x10^3 (test code 0.09 10*3/uL 0.03-0.39 = 711-2) BASO x10^3 (test code <0.03 0.01-0.07 = 704-7) PLT ESTIMATE (test Critically Normal AA code = 9317-9) Decreased Lab Interpretation Abnormal (test code = 62353-0) [facility] HospitalGLYCOSYLATED HEMOGLOBIN (A1C)2019-08-10 13:13:00 Test Item Value [...] Indicated Lab Interpretation Normal (test code = 99083-2) [facility] HospitalTHYROID STIMULATING [id number] 13:05:00 Test Item Value Reference Range Interpretation Comments TSH (test code = See_Comment [Automated message] 0615850610) The system [employer] generated this result transmitted ref erence range: 0.45 - 4 .70 mIU/L. The refe rence range was not u sed to interpret this result as normal/abnor mal. Lab Interpretation (test Normal code = 47446-4) [facility] HospitalPREGNANCY TEST, [id number] 13:04:00 Test Item Value Reference Range Interpretation Comments PREG SERUM (test code Negative = 2149237431) SNOW (test code = SNOW) Less than 10 IU/L. ?If low titer or ectopic is suspected, resubmit specimen in 48-72 hours. [facility] HospitalLIPID PANEL (95912)(TOTAL CHOLESTEROL, TRIGLYCERIDES, HDL)2019-08-10 12:36:00 Test Item Value Reference Range Interpretation Comments CHOL (test code = 158 mg/dL 120-200 2276145949) HDL (test code = 47 mg/dL >50 L 7709292165) HDLC RATIO (test code = See_Comment [Au tomated message] 8477043000) The system [employer] generated this result transmit josemanuel reference range : <=4.5. The refe rence range was not u sed to interpret th is result as normal/abnormal . TRIG (test code = 51 mg/dL 30-170 8591620877) LDL CHOL (test code = 101 mg/dL See_Comment [Auto mated message] 91752-4) The system [employer] generated this result transmit josemanuel reference range : <=160. The refe rence range was not u sed to interpret th is result as normal/abnormal . VLDL (test code = 10 mg/dL 5-60 0821544224) Lab Interpretation (test Abnormal code = 81109-9) [facility]. METABOLIC PANEL (88544)2019-08-10 12:35:00 Test Item Value Reference Range Interpretation Comments NA (test code = 139 mmol/L 135-145 0508702033) K (test code = 3.9 mmol/L 3.5-5 5922842338) CL (test code = 109 mmol/L 98-108 H 7604115150) CO2 TOTAL (test code = 25 mmol/L 23-31 1371360478) AGAP (test code = 2-16 7826868292) BUN (test code = 15 mg/dL 7-23 5281054489) GLUCOSE (test code = 218 mg/dL 70-110 H 9157405726) CREATININE (test code = 0.40 mg/dL 0.5-1.04 L 4428153149) TOTAL BILI (test code = 2.0 mg/dL 0.1-1.1 H 3389611454) CALCIUM (test code = 8.5 mg/dL 8.6-10.6 L 3367325230) T PROTEIN (test code = 6.2 g/dL 6.3-8.2 L 2768636666) ALBUMIN (test code = 3.1 g/dL 3.5-5 L 2090094633) ALK PHOS (test code = 99 U/L 34-122 7702462073) ALTv (test code = 42 U/L 5-35 H 1742-6) AST(SGOT) (test code = 49 U/L 13-40 H 5002669994) eGFR Calculation mL/min/1.73m2 (Non-) (test code = 1475369806) eGFR Calculation mL/min/1.73m2 () (test code = 1536893693) SNOW (test code = SNOW) Association of [...] tests). Lab Interpretation Abnormal (test code = 74230-8) [facility] HospitalMAGNESIUM2020-05-01 12:35:00 Test Item Value Reference Range Interpretation Comments MAGNESIUM (test code = 5564823840) 1.6 mg/dL 1.7-2.4 L Lab Interpretation (test code = Abnormal 10852-2) [facility] HospitalPHOSPHORUS2020-05-01 12:35:00 Test Item Value Reference Range Interpretation Comments PHOSPHORUS (test code = 3164166433) 3.6 mg/dL 2.5-5 Lab Interpretation (test code = Normal 94936-3) [facility] HospitalCREATINE [id number] 12:35:00 Test Item Value Reference Range Interpretation Comments CK (test code = 3411870560) 123 U/L 33-194 Lab Interpretation (test code = Normal 68743-3) [facility] HospitalLIPASE2020-05-01 12:35:00 Test Item Value Reference Range Interpretation Comments LIPASE (test code = 2597184154) 141 U/L 0-220 Lab Interpretation (test code = Normal 33063-4) [facility] HospitalAMYLASE2020-05-01 12:34:00 Test Item Value Reference Range Interpretation Comments LIN (test code = 3473570184) 73 U/L 35-110 Lab Interpretation (test code = Normal 35474-6) [facility] HospitalPROTHROMBIN TIME / [id number] 12:07:00 Test Item Value Reference Range Interpretation Comments PROTIME PATIENT (test See_Comment H [Auto mated message] code = 5964-2) The system [employer] generated this result transmitted ref erence range: 12.0 - 1 4.7 Seconds. The reference range was not used to int erpret this result as normal/abnormal . INR (test code = 6301-6) Nor mal INR <1.1; Warfarin Therap eutic range 2.0 to 3. 0 or 2.5 to 3.5, dep ending upon the indica tions. Lab Interpretation (test Abnormal code = 52696-2) [facility] HospitalCORONAVIRUS COVID-19 [id number] 10:18:00 Test Item Value Reference Range Interpretation Comments SARS-CoV-2 (test code = Not Detected Not Detected 81187-1) SNOW (test code = SNOW) ID NOW COVID-19 Assay is an isothermal nucleic acid amplification test intended for the qualitative detection of nucleic acid from SARS-CoV-2 viral RNA in nasopharyngeal (DATABASE REPORT WRITER) specimens. It is used under Emergency Use [...] indicated. Lab Interpretation Normal (test code = 98163-5) [facility] HospitalRAD, CHEST, 1 VIEW, NON [id number] 07:50:00Reason for exam:->SOBShould this be performed at the bedside?->Yes FINAL REPORT CLINICAL HISTORY: SOB TECHNIQUE: 1 view of the chest. COMPARISON: None IMPRESSION: There is pulmonary vascular congestion with prominent lung markings bilaterally. Subpulmonic pleural effusions cannot be excluded. The cardiomediastinal silhouette is magnified by technique. Signed: Franky Hoyt MDReport Verified Date/Time: 10/03/2018 07:50:47 Reading Location: [facility] Radiology Reading Room [id number] 07:37:00 Test Item Value Reference Range Interpretation Comments MAGNESIUM (BEAKER) (test code = 1.6 mg/dL 1.6-2.6 627) BASIC METABOLIC [id number] 07:37:00 Test Item Value Reference Range Interpretation [...] DIALYSIS PATIEN TS. Specimen slightly ictericHEPATIC FUNCTION [id number] 07:37:00 Test Item Value Reference Range Interpretation [...] 35 U/L 6-55 347) Specimen slightly ictericPROTHROMBIN TIME/[id number] 06:25:00 Test Item Value Reference Range Interpretation [...] mechanical heart valves.CBC W/PLT COUNT & AUTO [id number] 06:16:00 Test Item Value Reference Range Interpretation [...] = 3438) Received comment: User comments: Slide comments:[id number] 05:58:00 Test Item Value Reference Range Interpretation Comments MAGNESIUM (BEAKER) (test code = 1.6 mg/dL 1.6-2.6 627) BASIC METABOLIC [id number] 05:58:00 Test Item Value Reference Range Interpretation [...] DIALYSIS PATIEN TS. Specimen slightly ictericHEPATIC FUNCTION [id number] 05:58:00 Test Item Value Reference Range Interpretation [...] 39 U/L 6-55 347) Specimen slightly ictericPROTHROMBIN [id number] 05:26:00 Test Item Value Reference Range Interpretation [...] mechanical heart valves.CBC W/PLT COUNT & AUTO [id number] 05:20:00 Test Item Value Reference Range Interpretation [...] WBC 0-0 (test code = 413) VITAMIN [id number] 06:57:00 Test Item Value Reference Range Interpretation Comments VITAMIN B12 (BEAKER) (test code = 178 pg/mL 213-816 L 774) [id number] 06:57:00 Test Item Value Reference Range Interpretation Comments FERRITIN (BEAKER) (test code = 361) 21 ng/mL 5-275 FOLATE, [id number] 06:57:00 Test Item Value Reference Range Interpretation [...] 28 % 20-55 (test code = 2590) [id number] 05:59:00 Test Item Value Reference Range Interpretation Comments MAGNESIUM (BEAKER) (test code = 1.7 mg/dL 1.6-2.6 627) BASIC METABOLIC [id number] 05:59:00 Test Item Value Reference Range Interpretation [...] FOR DIALYSIS PATIEN TS. Specimen slightly ictericLIPID [id number] 05:59:00 Test Item Value Reference Range Interpretation [...] Very High >=190 Specimen slightly ictericHEPATIC FUNCTION [id number] 05:59:00 Test Item Value Reference Range Interpretation [...] = 41 U/L 6-55 347) Specimen slightly [id number] 05:59:00 Test Item Value Reference Range Interpretation Comments LIPASE (BEAKER) (test code = 749) 35 U/L 8-78 Specimen slightly ictericPROTHROMBIN [id number] 05:58:00 Test Item Value Reference Range Interpretation [...] mechanical heart valves.CBC W/PLT COUNT & AUTO [id number] 05:37:00 Test Item Value Reference Range Interpretation [...] PERCENT (BEAKER) (test code = 2801) POCT-HEMOGLOBIN [id number] 06:12:00 Test Item Value Reference Range Interpretation Comments POC-HEMOGLOBIN METER 8.6 g/dL 12.0-15.0 L TESTED AT [facility] 67[address] (BEAKER) (test code = [place] [address] 1539)"
[2022-03-15] MEDS ORDERED: FENTANYL CITR 100 MCG/2 ML ONE (16:16)
[2022-03-15 16:31] LABS: Absolute Lymphocytes (CBC) 0.4 K/uL (0.7-4.9); Hematocrit 28.2 % (36.0-45.0); Lymphocytes % 22.6 % (15.3-44.8); MCV 84.9 fL (80-100); MPV 7.7 fL (7.6-11.3); RBC Red Blood Cell Count 3.32 M/uL (3.86-4.86)
[2022-03-15 16:49] LABS: Bilirubin Total 1.4 mg/dL (0.2-1.0); Potassium 3.9 mmol/L (3.5-5.1); Protein, Total 6.1 g/dL (6.4-8.2)
--- NOTE | 2022-03-15 18:04 | RAD REPORT ---
EXAM DESCRIPTION: CT - Abdomen Pelvis W Contrast - 03/15/2022 5:39 pm CLINICAL HISTORY: Abdominal pain COMPARISON: November 2021 TECHNIQUE: Computed axial tomography of the abdomen pelvis was obtained. 100 cc Isovue-300 was admin istered intravenously. Oral contrast was not requested which limits evaluation of bowel and appendix All CT scans are performed using dose optimization technique as appropriate and may include automated exposure control or mA/KV adjustment according to patient size. FINDINGS: Cirrhotic liver. Portal vein is patent. The spleen measures 21 centimeters. Splenic artery aneurysm 3.1 centimeters. It is without significant change. Adrenals and kidneys are unremarkable. No evidence of diverticulitis. Cholecystectomy. Stable stranding within the mesenteric fat right lower quadrant. IMPRESSION: Cirrhosis with splenomegaly No acute abnormality displayed
--- NOTE | 2022-03-15 18:36 | ER ---
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 Also reports RUQ abdominal pain. Coronavirus screen: At this time, the client does not indicate any symptoms associated with coronavirus-19. Ebola Screen: No symptoms or risks identified at this time. Initial Sepsis Screen: Does the patient meet any 2 criteria? No. Patient's initial sepsis screen is negative. Does the patient have a suspected source of infection? No. Patient's initial sepsis screen is negative. Risk Assessment: Do you want to hurt yourself or someone else? Patient reports no desire to harm self or others. Onset of symptoms was March 15, 2022. 15:04 Method Of Arrival: Ambulatory [facility] 15:04 Acuity: TANK 3 jl7 Triage Assessment: 15:06 General: Appears in no apparent distress. uncomfortable, Behavior is calm, cooperative, jl7 appropriate for age. Pain: Complains of pain in right upper quadrant Pain currently is 9 out of 10 on a pain scale. Historical: - Allergies: 15:06 Demerol; jl7 15:06 Dilaudid; jl7 15:06 Morphine (Anaphylaxis); jl7 15:06 Zofran; jl7 - PMHx: 15:06 Anemia; breast cancer; Cirrhosis; ESOPHAGEAL VARACIES; fatty liver; Heart Murmur; jl7 Pancreatitis; polyp; - PSHx: 15:06 Cholecystectomy; right knee surgery; Appendectomy; Lumpectomy of breast; right jl7 lymphectomy; Total abdominal hysterectomy; - Immunization history:: Client reports receiving the 2nd dose of the Covid vaccine. - Social history:: Smoking status: Patient denies any tobacco usage or history of. Screenin:50 Abuse screen: Denies threats or abuse. Nutritional screening: No deficits noted. em6 Tuberculosis screening: No symptoms or risk factors identified. Fall Risk Total Adames Fall Scale indicates No Risk (0-24 pts). Assessment: 15:50 General: Appears in no apparent distress. Behavior is cooperative. Pain: Complains of em6 pain in abdomen and right upper quadrant Pain does not radiate. Pain currently is 8 out of 10 on a pain scale. Quality of pain is described as sharp. Neuro: Level of Consciousness is awake, alert, obeys commands, Oriented to person, place, time, situation. Cardiovascular: Heart tones present Patient's skin is warm and dry. Respiratory: Airway is patent Respiratory effort is even, unlabored, Respiratory pattern is regular, symmetrical. GI: Abdomen is non-distended, Bowel sounds present X 4 quads. Abd is soft and non tender X 4 quads. : No signs and/or symptoms were reported regarding the genitourinary system. EENT: No signs and/or symptoms were reported regarding the EENT system. Derm: No signs and/or symptoms reported regarding the dermatologic system. Musculoskeletal: Circulation, motion, and sensation intact. Range of motion: intact in all extremities. 16:50 Reassessment: Patient appears in no apparent distress at this time. No changes from em6 previously documented assessment. Patient and/or family updated on plan of care and expected duration. Pain level reassessed. Patient is alert, oriented x 3, equal unlabored respirations, skin warm/dry/pink. 17:50 Reassessment: Patient appears in no apparent distress at this time. No changes from em6 previously documented assessment. Patient and/or family updated on plan of care and expected duration. Pain level reassessed. Patient is alert, oriented x 3, equal unlabored respirations, skin warm/dry/pink. Vital Signs: 15:04 BP 134 / 65; Pulse 83; Resp 17; Temp 98.2; Pulse Ox 99% on R/A; Weight 111.13 kg; jl7 Height 5 ft. 4 in. (162.56 cm); Pain 9/10; 16:15 BP 146 / 78; Pulse 79; Resp 18; Pulse Ox 99% on R/A; em6 17:15 BP 137 / 78; Pulse 74; Resp 18; Pulse Ox 98% on R/A; em6 18:45 BP 132 / 74; Pulse 72; Resp 18; Pulse Ox 98% on R/A; em6 15:04 Body Mass Index 42.05 (111.13 kg, 162.56 cm) jl7 ED Course: 14:25 Patient arrived in ED. as 14:52 Lenny Enrique MD is Attending Physician. kdr 15:06 Triage completed. jl7 15:06 Arm band placed on right wrist. jl7 15:31 Gia Waldron, RN is Primary Nurse. ko1 15:50 Placed in gown. Bed in low position. Call light in reach. Side rails up X2. Cardiac em6 monitor on. Pulse ox on. NIBP on. Warm blanket given. 16:14 Inserted saline lock: 20 gauge in left forearm, using aseptic technique. ,using aseptic ss technique. Insertion VIA ultrasound guided. Blood collected. 16:19 Lipase Sent. em6 16:19 AMMONIA Sent. em6 16:19 CBC with Diff Sent. em6 16:19 CMP Sent. em6 17:41 CT Abd/Pelvis - IV Contrast Only In Process Unspecified. EDMS 18:46 No provider procedures requiring assistance completed. IV discontinued, intact, em6 bleeding controlled, No redness/swelling at site. Pressure dressing applied. Administered Medications: 16:19 Drug: fentaNYL (PF) 50 mcg Route: IVP; Site: left forearm; em6 17:09 Follow up: Response: No adverse reaction; RASS: Alert and Calm (0) em6 Medication: 18:46 VIS not applicable for this client. em6 Outcome: 18:35 Discharge ordered by . kdr 19:01 Discharged to home ambulatory, with family. em6 19:01 Condition: stable 19:01 Discharge instructions given to patient, family, Instructed on discharge instructions, follow up and referral plans. Demonstrated understanding of instructions, follow-up care. 19:01 Patient left the ED. em6 Signatures: Dispatcher [employer] EDMS Lenny Enrique MD MD kdr Martinez, Amelia as Smirch, Shelby, RN RN ss Leal, Jahala, RN RN 7 Pat Abbasi RN RN em6 Gia Waldron, RN RN ko1 Corrections: (The following items were deleted from the chart) 15:07 15:06 PSHx: Appendectomy; 7 [facility] 15:07 15:06 PSHx: Cholecystectomy; [place] [id number] 16:22 13:50 General: Appears in no apparent distress. Behavior is cooperative, em6 em6 16:22 13:50 Pain: Complains of pain in abdomen and right upper quadrant Pain does not em6 radiate. Pain currently is 8 out of 10 on a pain scale. Quality of pain is described as sharp, em6 16:22 13:50 Neuro: Level of Consciousness is awake, alert, obeys commands, Oriented to em6 person, place, time, situation, em6 16:22 13:50 Cardiovascular: Heart tones present Patient's skin is warm and dry. em6 em6 16:22 13:50 Respiratory: Airway is patent Respiratory effort is even, unlabored, Respiratory em6 pattern is regular, symmetrical, em6 16:22 13:50 GI: Abdomen is non-distended, Bowel sounds present X 4 quads. Abd is soft and non em6 tender X 4 quads. em6 16:22 13:50 : No signs and/or symptoms were reported regarding the genitourinary system. em6em6 16:22 13:50 EENT: No signs and/or symptoms were reported regarding the EENT system. em6 em6 16:22 13:50 Derm: No signs and/or symptoms reported regarding the dermatologic system. em6 em6 16:22 13:50 Musculoskeletal: Circulation, motion, and sensation intact. Range of motion: em6 intact in all extremities, em6
--- NOTE | 2022-03-15 18:36 | EDPHYS ---
Physician Documentation [facility] Name: Zenaida Goss Age: 61 yrs Sex: Female : 1960 Arrival Date: 03/15/2022 Time: 14:25 Bed 14 Private MD: ED Physician Lenny Enrique HPI: 03/15 15:49 This 61 yrs old Female presents to ER via Ambulatory with complaints of kdr confusion. 15:49 . Onset: The symptoms/episode began/occurred gradually, yesterday. Severity of kdr symptoms: At their worst the symptoms were mild just prior to arrival. The patient has experienced a previous episode. 03/16 09:38 The patient has not recently seen a physician. kdr Historical: - Allergies: 03/15 15:06 Demerol; jl7 15:06 Dilaudid; jl7 15:06 Morphine (Anaphylaxis); jl7 15:06 Zofran; jl7 - PMHx: 15:06 Anemia; breast cancer; Cirrhosis; ESOPHAGEAL VARACIES; fatty liver; Heart Murmur; jl7 Pancreatitis; polyp; - PSHx: 15:06 Cholecystectomy; right knee surgery; Appendectomy; Lumpectomy of breast; right jl7 lymphectomy; Total abdominal hysterectomy; - Immunization history:: Client reports receiving the 2nd dose of the Covid vaccine. - Social history:: Smoking status: Patient denies any tobacco usage or history of. ROS: 03/16 09:38 Constitutional: Negative for fever, chills, and weight loss, Eyes: Negative for injury, kdr pain, redness, and discharge, ENT: Negative for injury, pain, and discharge, Neck: Negative for injury, pain, and swelling, Cardiovascular: Negative for chest pain, palpitations, and edema, Respiratory: Negative for shortness of breath, cough, wheezing, and pleuritic chest pain, Abdomen/GI: Negative for abdominal pain, nausea, vomiting, diarrhea, and constipation, Back: Negative for injury and pain, : Negative for injury, bleeding, discharge, and swelling, MS/Extremity: Negative for injury and deformity, Skin: Negative for injury, rash, and discoloration, Psych: Negative for depression, anxiety, suicide ideation, homicidal ideation, and hallucinations, Allergy/Immunology: Negative for hives, rash, and allergies, Endocrine: Negative for neck swelling, polydipsia, polyuria, polyphagia, and marked weight changes, Hematologic/Lymphatic: Negative for swollen nodes, abnormal bleeding, and unusual bruising. Neuro: Positive for altered mental status, Patient states that she had 1 possibly 2 episodes that were brief and self-limited when she was confused. These are resolved and she currently has no symptoms. She also complains of mild epigastric upper abdominal pain. This happens periodically and she is concerned that her ammonia level may be elevated since she had missed a dose or 2 recently. She has no other complaints is not in any acute distress at this time and does not require emergent intervention. Exam: 09:38 Constitutional: This is a well developed, well nourished patient who is awake, alert, kdr and in no acute distress. Head/Face: Normocephalic, atraumatic. Eyes: Pupils equal round and reactive to light, extra-ocular motions intact. Lids and lashes normal. Conjunctiva and sclera are non-icteric and not injected. Cornea within normal limits. Periorbital areas with no swelling, redness, or edema. Neck: Trachea midline, no thyromegaly or masses palpated, and no cervical lymphadenopathy. Supple, full range of motion without nuchal rigidity, or vertebral point tenderness. No Meningismus. Chest/axilla: Normal chest wall appearance and motion. Nontender with no deformity. No lesions are appreciated. Cardiovascular: Regular rate and rhythm with a normal S1 and S2. No gallops, murmurs, or rubs. Normal PMI, no JVD. No pulse deficits. Respiratory: Lungs have equal breath sounds bilaterally, clear to auscultation and percussion. No rales, rhonchi or wheezes noted. No increased work of breathing, no retractions or nasal flaring. Back: No spinal tenderness. No costovertebral tenderness. Full range of motion. Skin: Warm, dry with normal turgor. Normal color with no rashes, no lesions, and no evidence of cellulitis. MS/ Extremity: Pulses equal, no cyanosis. Neurovascular intact. Full, normal range of motion. Neuro: Awake and alert, GCS 15, oriented to person, place, time, and situation. Cranial nerves II-XII grossly intact. Motor strength 5/5 in all extremities. Sensory grossly intact. Cerebellar exam normal. Normal gait. Psych: Awake, alert, with orientation to person, place and time. Behavior, mood, and affect are within normal limits. 09:38 Abdomen/GI: Inspection: obese Bowel sounds: active, diminished, in all quadrants, Palpation: soft, mild abdominal tenderness, in the epigastric area and right upper quadrant. Vital Signs: 03/15 15:04 BP 134 / 65; Pulse 83; Resp 17; Temp 98.2; Pulse Ox 99% on R/A; Weight 111.13 kg; jl7 Height 5 ft. 4 in. (162.56 cm); Pain 9/10; 16:15 BP 146 / 78; Pulse 79; Resp 18; Pulse Ox 99% on R/A; em6 17:15 BP 137 / 78; Pulse 74; Resp 18; Pulse Ox 98% on R/A; em6 18:45 BP 132 / 74; Pulse 72; Resp 18; Pulse Ox 98% on R/A; em6 15:04 Body Mass Index 42.05 (111.13 kg, 162.56 cm) jl7 MDM: 18:35 Patient medically screened. kdr 03/16 09:38 Data reviewed: vital signs, nurses notes, lab test result(s), radiologic studies. kdr Counseling: I had a detailed discussion with the patient and/or guardian regarding: the historical points, exam findings, and any diagnostic results supporting the discharge/admit diagnosis, lab results, radiology results, the need for outpatient follow up. ED course: Patient improved greatly with the interventions given. She was happy with the care provided the plan for discharge and follow-up. I reviewed previous data establishing that her laboratory work although abnormal, was largely similar to where her normal baseline maintains. She will follow-up with her regular physician for further evaluation as needed. She was happy the care provided the plan for discharge and follow-up. 03/15 15:11 Order name: CBC with Diff kdr 03/15 15:11 Order name: CMP; Complete Time: 16:56 kdr 03/15 15:13 Order name: AMMONIA; Complete Time: 16:56 kdr 03/15 15:48 Order name: Lipase; Complete Time: 16:56 kdr 03/15 15:48 Order name: CT Abd/Pelvis - IV Contrast Only; Complete Time: 18:12 kdr 03/15 15:11 Order name: IV Saline Lock; Complete Time: 16:14 kdr 03/15 15:11 Order name: Labs collected and sent; Complete Time: 16:14 kdr Administered Medications: 03/15 16:19 Drug: fentaNYL (PF) 50 mcg Route: IVP; Site: left forearm; em6 17:09 Follow up: Response: No adverse reaction; RASS: Alert and Calm (0) em6 Disposition Summary: 03/15/22 18:35 Discharge Ordered Location: Home kdr Problem: new kdr Symptoms: have improved kdr Condition: Stable kdr Diagnosis - Upper abdominal pain, unspecified kdr - Other pancytopenia - Secondary to cirrhosis, chronic(03/15/22 18:36) kdr Followup: kdr - With: Private Physician - When: 2 - 3 days - Reason: If symptoms return, Further diagnostic work-up, Recheck today's complaints, Continuance of care, Re-evaluation by your physician Discharge Instructions: - Discharge Summary Sheet kdr - Abdominal Pain, Adult, [id number] kdr - Thrombocytopenia, [id number] kdr - Pancytopenia kdr Forms: - Medication Reconciliation Form kdr - Thank You Letter kdr Signatures: Dispatcher [employer] Lenny Buchanan MD MD kdr Neal Lynn PA PA jmm Leal, Jahala RN RN jl7 Pat Abbasi RN RN em6 Corrections: (The following items were deleted from the chart) 15:07 15:06 PSHx: Appendectomy; jl7 jl7 15:07 15:06 PSHx: Cholecystectomy; jl7 jl7 18:36 18:35 Other pancytopenia kdr kdr
[2022-03-15 20:18] LABS: Blood Morphology Comment NOT SEEN (NOT SEEN); Platelet Estimate DECR; White Blood Cell Scan OK (OK)
[2022-03-15 21:08] VITALS: TEMP 98.2
[2022-03-15 21:17] VITALS: O2SAT 98
[2022-03-15 21:23] VITALS: BP 132/74
== END 2022-03-15 19:01 | disposition home or self-care (01) ==
LOC: ER 14:21
DX: D61.818 Other pancytopenia (principal); K74.69 Other cirrhosis of liver; Z88.5 Allergy status to narcotic agent; Z88.8 Allergy status to other drugs, medicaments and biological substances; Z85.3 Personal history of malignant neoplasm of breast
CPT/HCPCS: 85025; 36415; 82140; 83690; 80053; 74177; 96374; 99284; Q9967; J3010

== ENCOUNTER 2022-03-25 04:53 | Emergency (ER) | payer OTHER ==
--- OUTSIDE RECORDS SUMMARY | 2022-03-25 05:07 | XMS REPORT | Continuity of Care Document ---
:1960 Author Organization [facility] t Address [address] [place] [address] Care Team Providers Name Role Phone Madhu Miranda Primary Care Physician Unavailable Annalise Souza Attending Clinician Unavailable Madhu Miranda Attending Clinician Unavailable Dre RN, Rhoda Attending Clinician Unavailable Stevo Hoskins DO Attending Clinician Jeremy Sandoval MD Attending Clinician [phone] FLORIAN AYERS Attending Clinician Unavailable Florian Ayers DO Attending Clinician Charline HENSLEY, [facility] Hodan Attending Clinician Bebeto Ward MD Attending Clinician Nakia Cruz MD Attending Clinician Aziza Cordero MD Attending Clinician Deepak Heck MDtor Veronique Attending Clinician Verónica HENSLEY, Carolin Diaz Attending Clinician Amandeep HENSLEY, Vandana Mae Attending Clinician [phone] Thomas HENSLEY, Elias Attending Clinician Karlo HENSLEY, Handy Blanco Attending Clinician [phone] Nafisa HENSLEY, Jefferson Lisa Attending Clinician Jose HENSLEY, Willian Snowden Attending Clinician Ronnie HENSLEY, Mahnaz Attending Clinician Feng Burgos Attending Clinician Mayda Aleman MD, Sharita Attending Clinician [phone] Maiet HENSLEY, Anand Baron Attending Clinician Sukhdev SOTO Attending Clinician Unavailable Sukhdev Fajardo Attending Clinician Doctor Unassigned, [place] Attending Clinician Unavailable [facility] Attending Clinician UnavailAZALEA Cook Attending Clinician Unavailable Azalea Mancilla Attending Clinician [...] I Attending Clinician Unavailable Kamaljit GARCIA, Dulce Souza Attending Clinician Nasrin REYES, Jovanny Souza Attending Clinician Unavailable SHAINA PINTO Attending Clinician Unavailable AVI DAVEY Attending Clinician Unavailable DRE MAYER Attending Clinician Unavailable JEREMY SANDOVAL Admitting Clinician Unavailable FLORIAN AYERS Admitting Clinician Unavailable BEBETO WARD Admitting Clinician Unavailable MD NAKIA CRUZ Admitting Clinician Unavailable SHANNARERDO JEWELLH ZACKARY Admitting Clinician Unavailable Sukhdev SOTO Admitting Clinician [...] Type Policy Number Effective Date Expiration Date [facility] [id number] 2019 CHOICE 00:00:00 Problems Condition Condition Condition Status Onset Resolution Last Treating Co mments Source Name Details Category Date Date Treatment Clinician Date Abdominal Abdominal Disease Active 2021-04 Met [facility]odi pain, pain, 1-17 st unspecifie unspecifie 00:00: Ho spita d d 00 l abdominal abdominal location location Pancreatic Pancreatic Disease Active 2021-04 Overview : Methodi cyst cyst 0-[address] 00:00: g of this Hospita 00 note l might be different from the original. Added automatic ally from request for surgery [id number] Gastritis Gastritis Disease Active Met [facility] without without 924 st bleeding, bleeding, 00:00: [facility] unspecifie [...] Added automatic ally from request for surgery [id number] Pancolitis Pancolitis Disease Active U nivers 6-21 ity of 00:00: [place] 00 [facility] Arrhythmia Arrhythmia Disease Active U nivers 6-21 ity of 00:00: [place] [facility] Ventricula Ventricula Disease Active U nivers r r 6 [place] tachycardi [place]cardi [place] [facility] Other Other Disease Active Univers cirrhosis cirrhosis - ity of of liver of liver 00:00: [place] [facility] ANAYA ANAYA Disease Active Univers (nonalcoho (nonalcoho 09-29 it y of lic lic 00:00: [place] steatohepa steatohepa 00 Me dical titis) titis) Branch Hypokalemi Hypokalemi Disease Active U nivers a a 6- ity of 00:00: [place] 00 Medical [facility] Acute Acute Disease Active Univers colitis colitis 09-29 ity of 00:00: [place] 00 [facility] Abdominal Abdominal Disease Active Met [facility] pain, pain, 3 st acute acute 00:00: Hospita 00 l Liver Liver Disease Active [facility] cirrhosis cirrhosis 06-09 st 00:00: Hospita 00 l Epigastric Epigastric Disease Active M ethodi pain pain 06-09 00:00: Hospita 00 l Pancreatit Pancreatit Disease [...] Morbid Morbid Disease Active Univers obesity obesity 4- ity of with body with body 00:00: [...] - [facility] right knee right knee [facility] Primary Primary Diagnosis Active 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 of itis of - [facility] left knee left knee [facility] Allergies, Adverse Reactions, Alerts Allergy Allergy Status Severity Reaction(s) Onset Inactive Treating Comm ents Source Name Type Date Date Clinician Adhesive Propensi Active Rash Method i Tape-Hillary ty to 27 st icones adverse 00:00: Hospita reaction 00 l [...] [place] 00 [facility] Morphine Propensi Active Shortness [facility] Thro[facility] Breath, 06[facility]30 [facility] adverse Swelling 00:00: tongue Medical reaction 00 swelling Center s MORPHINE Adverse Active Info Not Commo n Reaction Available Spiri t - [facility] Social History Social Habit Start Date Stop Date Quantity Comments Source History [facility] Baptism Aurelio spital Alcohol Std Drinks History [facility] Baptism Ho spital Alcohol Binge Exposure to 2022-02-05 2022-02-15 Not sure University SARS-CoV-2 00:00:00 13:41:00 [facility] (event) Branch Alcohol intake 2022-02-05 2022-02-05 Lifetime [facility] 00:00:00 00:00:00 non-drinker (finding) History [facility] 2020-03-19 2020-03-19 1 Baptism Ho spital Alcohol Frequency 00:00:00 00:00:00 Tobacco use and 2016-06-30 2016-06-30 Never used [facility] kes exposure 00:00:00 00:00:00 [facility] Center Sex Ass[birth year] At [birth year] [facility] 00:00:00 00:00:00 Smoking Status Start Date Stop Date Source Never smoked tobacco [facility] Medications Ordered Filled Start Stop Current Ordering Indication Dosage Frequency Signature Comments Components Source Medication Medication Date Date Medication? Clinician (SIG) Name Name psyllium 2021-04- Yes 1{packe Q48H Take 1 Met triston haddad 05-01 t} packet by st sugar-free 00:00: 05:59 mouth Hospi ta (METAMUCIL) 00 :00 every l 6 gram other day packet for 30 days. psyllium 2021-04- Yes 1{packe Q48H Take 1 Met triston haddad 05-01 t} packet by st sugar-free 00:00: 05:59 mouth Hospi ta (METAMUCIL) 00 :00 every l 6 gram other day packet for 30 days. polyethylen 2021-04 Yes 17g QD Take 17 g M ethodi e glycol 1-[address] (Miralax) 18:45: daily. Hospit a 17 gram 03 l packet polyethylen 2021-04 Yes 17g QD Take 17 [...] times a day. lipase-prot 2021-04 Yes 1{capsu Q.[id number] Take 1 Methodi ease-amylas 1-19 le} [id number] capsule by st e (CREON) 18:47: 3D mouth 3 Hospi ta 36,000-114, 48 (three) l 000- times a 180,000 day. unit capsule,del ayed release(DR/ EC) methocarbam 2021-04 Yes 500mg Q.25D Take 1 Me thodi oL 1-[address] (ROBAXIN) 18:47: (500 mg Hospi ta 500 MG 48 total) by l tablet mouth 4 (four) times a day. lipase-prot 2021-04 Yes 1{capsu Q.[id number] Take 1 Methodi ease-amylas 1-19 le} [id number] capsule by st e (CREON) 18:47: 3D mouth 3 Hospi ta 36,000-114, 48 (three) l 000- times a 180,000 day. unit capsule,del ayed release(DR/ EC) riFAXimin 2021-04 Yes 550mg Q.5D Take 1 Metho di (XIFAXAN) 1-[address] 550 mg 18:47: (550 mg Hospita tablet 48 total) by l mouth 2 (two) times a day. ketorolac 2021-04- Yes 15mg 15 mg, Unive rs (TORADOL) 04-18 Slow IV ity of injection 00:00: 23:59 Push, Q6H, [place] 15 mg 00 :00 4 doses, Medical First dose Branch on Tue02/15/22 at 1800, Last dose on Tue02/16/22 at 1200, Routine iopamidol 2021-04- No [id number] 74mL 74 mL, U nivers (ISOVUE 04-17 Intravenou ity o f 370-500 mL) 21:30: 21:30 s, ONCE, 1 [place] injection 00 :00 dose, On Medica l 74 mL [facility] Branch 02/15/22 at 1530, Routine ondansetron 2021-04- No 4mg 4 mg, Slow Univers (ZOFRAN 04-17 IV Push, ity of (PF)) 21:00: 20:19 ONCE, 1 [place] injection 4 00 :00 dose, On Medi molly mg [facility] Branch 02/15/22 at 1500, Routine ondansetron 2021-04 Yes [id number] 4mg Take 1 Univers 4 mg 1-07 tablet by ity of disintegrat 00:00: mouth [place] ing tablet 00 every 8 Medica l (eight) Branch hours as needed for Nausea and Vomiting (N/V). dicyclomine 2021-04 Yes [id number] 20mg Take 1 Univers 20 mg 1-07 tablet by ity of tablet 00:00: mouth 4 [place] 00 (four) Medical times Branch daily. loperamide 2021-04 Yes [id number] 2mg Take 1 U nivers 2 mg 1-07 capsule by ity of capsule 00:00: mouth [place] 00 every 4 Medical (four) Branch hours as needed for Diarrhea. Not to exceed 16mg daily. furosemide 2021-04- No 40mg Q.5D Take 1 Meth dimitri (Lasix) 40 0-27 03-07 tablet (40 st mg tablet 00:00: 05:59 mg total) Ho spita 00 :00 by mouth 2 l (two) times a day for 30 days. lactulose 2021-04- No 20g Q.25D Take 30 mL Methodi 20 gram/30 0-27 11-27 ([address] mL solution 00:00: 05:59 total) by Hospita 00 :00 mouth 4 l (four) times a day for 30 days. pantoprazol 2021-04 No 40mg QD Take 1 Met hodi e 0-27 - tablet (40 st (PROTONIX) 00:00: 05:59 mg total) H ospita 40 MG EC 00 :00 by mouth l tablet daily for 30 days. spironolact 2021-04 No 50mg Q.5D Take 1 Met hodi one 0-07 03- tablet (50 st (ALDACTONE) 00:00: 05:59 mg total) Hospita 50 MG 00 :00 by mouth 2 l tablet (two) times a day for 30 days. sucralfate 2021-04 No 1g Q.25D Take 10 mL Method[facility] (CARAFATE) 003-07 ([address] 100 mg/mL 00:00: 05:59 total) by Ho spita suspension 00 :00 mouth 4 l (four) times a day before meals and nightly for 30 days. zinc 2021-04 No 1{capsu QD Take 1 [facility] sulfate 0-07 03- le} capsule by st (ZINCATE) 00:00: 05:59 mouth Hospit a 50 mg zinc 00 :00 daily for l (220 mg) 30 days. capsule furosemide 2021-04 No 40mg Q.5D Take 1 Meth dimitri (Lasix) 40 0-07 03- tablet (40 st mg tablet 00:00: 05:59 mg total) Ho spita 00 :00 by mouth 2 l (two) times a day for 30 days. lactulose 2021-04 No 20g Q.25D Take 30 mL Methodi 20 gram/30 0-07 03- ([address] mL solution 00:00: 05:59 total) by Hospita 00 :00 mouth 4 l (four) times a day for 30 days. pantoprazol 2021-04 No 40mg QD Take 1 Met hodi e 0-27 - tablet (40 st (PROTONIX) 00:00: 05:59 mg total) H ospita 40 MG EC 00 :00 by mouth l tablet daily for 30 days. spironolact 2021-04 50mg Q.5D Take 1 Met hodi one 0-07 03- tablet (50 st (ALDACTONE) 00:00: 05:59 mg total) Hospita 50 MG 00 :00 by mouth 2 l tablet (two) times a day for 30 days. sucralfate 2021-04 1g Q.25D Take 10 mL [facility] (CARAFATE) 27 ([address] 100 mg/mL 00:00: 05:59 total) by Ho spita suspension 00 :00 mouth 4 l (four) times a day before meals and nightly for 30 days. zinc 2021-04 1{capsu QD Take 1 [facility] sulfate 0-03-07 le} capsule by st (ZINCATE) 00:00: 05:59 mouth Hospit a 50 mg zinc 00 :00 daily for l (220 mg) 30 days. capsule HYDROcodone 2021-04 1{tbl} Q4H Take 1 [facility] -acetaminop 0-27 11-[address] [facility] 00:00: 05:59 mouth [facility] 10-325 mg 00 :00 every 4 l per tablet (four) hours as needed for severe pain for up to 10 days .acute pain. Max Daily Amount: 6 tablets HYDROcodone 2021-04 1{tbl} Q4H Take 1 [facility] -acetaminop 0-27 11-[address] hen ([facility]) 00:00: 05:59 mouth [facility] 10-325 mg [...] mouth 2 l (two) times a day. famotidine 2021-04 Yes 20mg Q.5D Take 1 Metho di (PEPCID) 20 0-12 tablet (20 st MG tablet 00:00: mg total) Hos alvaro 00 by mouth 2 l (two) times a day. riFAXimin 2021-0 Yes 550mg Q.5D Take 1 Metho di (XIFAXAN) 9-[address] 550 mg 19:11: (550 mg Hospita tablet 33 total) by l mouth 2 (two) times a day. riFAXimin 2021-0 Yes 550mg Q.5D Take 1 [...] day for 30 days. furosemide 2021-0 2021- Yes 40mg Q.5D Take 1 Meth dimitri (Lasix) 40 9-26 10-27 tablet (40 st mg tablet 00:00: 04:59 mg total) Ho spita 00 :00 by mouth 2 l (two) times a day for 30 days. pantoprazol 2021- Yes 40mg QD Take 1 Met hodi e 9-26 10-27 tablet (40 st (PROTONIX) 00:00: 04:59 [...] 01-04 ([address] mL solution 00:00: 04:59 total) by Hospita 00 :00 mouth 4 l (four) times a day for 30 days. furosemide 2021- Yes 40mg Q.5D Take 1 Meth dimitri (Lasix) 40 01-04- tablet (40 st mg tablet 00:00: 04:59 mg total) Ho spita 00 :00 by mouth 2 l (two) times a day for 30 days. pantoprazol 2021- Yes 40mg QD Take 1 Met hodi e - 10- tablet (40 st (PROTONIX) 00:00: 04:59 mg total) H ospita 40 MG EC 00 :00 by mouth l tablet daily for 30 days. spironolact 2021- Yes 50mg Q.5D Take 1 Met hodi one - 10-27 tablet (50 st (ALDACTONE) 00:00: 04:59 mg total) Hospita 50 MG 00 :00 by mouth 2 l tablet (two) times a day for 30 days. sucralfate 2021-2021- Yes 1g Q.25D Take 10 mL [facility] (CARAFATE) 01-04- ([address] 100 mg/mL 00:00: 04:59 total) by Ho spita suspension 00 :00 mouth 4 l (four) times a day before meals and nightly for 30 days. zinc 2021-2021- Yes 1{capsu QD Take 1 [facility] sulfate [...] 50mg Q.5D Take 1 Met hodi one 01-04- tablet (50 st (ALDACTONE) 00:00: 00:00 mg total) Hospita 50 MG 00 :00 by mouth 2 l tablet (two) times a day for 30 days. sucralfate 2021-0 2021- No 1g Q.25D Take 10 mL [facility] (CARAFATE) 01-04 10- ([address] 100 mg/mL 00:00: 00:00 total) by Ho spita suspension 00 :00 mouth 4 l (four) times a day before meals and nightly for 30 days. zinc 2021-2021- No 1{capsu QD Take 1 [facility] sulfate -02-04 le} capsule by st (ZINCATE) 00:00: 00:00 mouth Hospit a 50 mg zinc 00 :00 daily for l (220 mg) 30 days. capsule lactulose 2021- No 20g Q.25D Take 30 mL Methodi 20 gram/30 -03 02- ([address] mL solution 00:00: 00:00 total) by Hospita 00 :00 mouth 4 l (four) times a day for 30 days. furosemide 2021- No 40mg Q.5D Take 1 Meth dimitri (Lasix) 40 01-04- tablet (40 st mg tablet 00:00: 00:00 [...] 50mg Q.5D Take 1 Met hodi one 01-04 tablet (50 st (ALDACTONE) 00:00: 00:00 mg [...] 2 (two) times a day. pancrelipas 2021- No 2{capsu Q.[id number] Take 2 Methodi e, 12-18 le} [id number] capsules st lipase-prot 00:00: 04:59 3D by mouth 3 Hospita ease-amylas 00 :00 (three) l e, (CREON) times a 6,000-19,00 day with 0 -30,000 meals for unit 30 days. capsule,del ayed release(DR/ EC) capsule methocarbam 2021- No 500mg Q.[id number] Take 1 [facility]i oL 12-[id number] (ROBAXIN) 00:00: 04:59 3D (500 mg [facility] 500 MG 00 :00 total) by l tablet mouth 3 (three) times a day as needed (abdominal cramping) for up to 30 days. pancrelipas 2021- No 2{capsu Q.66672806 Take 2 Methodi e, 12-18 le} [id number] capsules st lipase-prot 00:00: 04:59 3D by mouth 3 Hospita ease-amylas 00 :00 (three) l e, (CREON) times a 6,000-19,00 day with 0 -30,000 meals for unit 30 days. capsule,del ayed release(DR/ EC) capsule methocarbam 2021- No 500mg Q.91371809 Take 1 [facility]i oL 12-[id number] (ROBAXIN) 00:00: 04:59 3D (500 mg [facility] 500 MG 00 :00 total) by l tablet mouth 3 (three) times a day as needed (abdominal cramping) for up to 30 days. pancrelipas 2021- No 2{capsu Q.[id number] Take 2 Methodi e, 12-18 le} [id number] capsules st lipase-prot 00:00: 04:59 3D by mouth 3 Hospita ease-amylas 00 :00 (three) l e, (CREON) times a 6,000-19,00 day with 0 -30,000 meals for unit 30 days. capsule,del ayed release(DR/ EC) capsule methocarbam 2021- No 500mg Q.[id number] Take 1 [facility] oL 12-[id number] (ROBAXIN) 00:00: 04:59 3D (500 mg [facility] 500 MG 00 :00 total) by l tablet mouth 3 (three) times a day as needed (abdominal cramping) for up to 30 days. pancrelipas 2021- No 2{capsu Q.82763754 Take 2 Methodi e, 12-18 le} [id number] capsules st lipase-prot 00:00: 04:59 3D by mouth 3 Hospita ease-amylas 00 :00 (three) l e, (CREON) times a 6,000-19,00 day with 0 -30,000 meals for unit 30 days. capsule,del ayed release(DR/ EC) capsule methocarbam 2021- No 500mg Q.37536522 Take 1 Method[facility] oL 12-[id number] (ROBAXIN) 00:00: 04:59 3D (500 mg [facility] 500 MG 00 :00 total) by l tablet mouth 3 (three) times a day as needed (abdominal cramping) for up to 30 days. pancrelipas 2021- No 2{capsu Q.[id number] Take 2 Methodi e, 12-18 le} [id number] capsules st lipase-prot 00:00: 04:59 3D by mouth 3 Hospita ease-amylas 00 :00 (three) l e, (CREON) times a 6,000-19,00 day with 0 -30,000 meals for unit 30 days. capsule,del ayed release(DR/ EC) capsule methocarbam 2021- No 500mg Q.88235600 Take 1 Methodi oL 12-[id number] (ROBAXIN) 00:00: 04:59 3D (500 mg [facility] 500 MG 00 :00 total) by l tablet mouth 3 (three) times a day as needed (abdominal cramping) for up to 30 days. HYDROcodone 2021-2021- [place] [id number] 1{tbl} Q6H Take 1 [facility] -acetaminop 12-[address] [facility] ([facility]) 00:00: 00:00 mouth [facility] 10-325 mg 00 :00 every 6 l per tablet (six) hours as needed for severe pain for up to 10 days .acute pain. Max Daily Amount: 4 tablets HYDROcodone 2022-0 202- No [id number] 1{tbl} Q6H Take 1 [facility] -acetaminop 12-[address] [facility] ([facility]) 00:00: 00:00 mouth [facility] 10-325 mg 00 :00 every 6 l per tablet (six) hours as needed for severe pain for up to 10 days .acute pain. Max Daily Amount: 4 tablets HYDROcodone 2021-0 2021- No [id number] 1{tbl} Q6H Take 1 [facility] -acetaminop 12-[address] [facility] ([facility]) 00:00: 00:00 mouth [facility] 10-325 mg 00 :00 every 6 l per tablet (six) hours as needed for severe pain for up to 10 days .acute pain. Max Daily Amount: 4 tablets HYDROcodone 2021-0 2021- No [id number] 1{tbl} Q6H Take 1 [facility] -acetaminop 12-[address] [facility] ([facility]) 00:00: 00:00 mouth [facility] 10-325 mg 00 :00 every 6 l per tablet (six) hours as needed for severe pain for up to 10 days .acute pain. Max Daily Amount: 4 tablets HYDROcodone 2022-0 2021- [place] [id number] 1{tbl} Q6H Take 1 [facility] -acetaminop 12-[address] [facility] ([facility]) 00:00: 04:59 mouth [facility] 10-325 mg [...] mouth 2 (two) times a day. pantoprazol 2021-0 2021- No 40mg QD Take 1 Met [...] :00 by mouth l tablet daily. pantoprazol No 40mg QD Take 1 Met hodi e 12-04-25 tablet (40 st (PROTONIX) 14:06: 00:00 mg total) H ospita 40 MG EC 05 :00 by mouth l tablet daily. pantoprazol No 40mg QD Take 1 Met hodi e 12-04 tablet (40 st (PROTONIX) 14:06: 00:00 mg total) H ospita 40 MG EC 05 :00 by mouth l tablet daily. pantoprazol No 40mg QD Take 1 Met hodi e 12-0425 tablet (40 st (PROTONIX) 14:06: 00:00 mg [...] l (220 mg) 30 days. capsule zinc 2021-2021- No 1{capsu QD Take 1 [facility] sulfate 12-04 le} capsule by st (ZINCATE) 00:00: 04:59 mouth Hospit a 50 mg zinc 00 :00 daily for l (220 mg) 30 days. capsule zinc 2021-2021- No 1{capsu QD Take 1 [facility] sulfate 12-04 le} capsule by st (ZINCATE) 00:00: 04:59 mouth Hospit a 50 mg zinc 00 :00 daily for l (220 mg) 30 days. capsule zinc 2021-0 2021- No 1{capsu QD Take 1 [facility] sulfate 12-04 le} capsule by st (ZINCATE) 00:00: 00:00 mouth Hospit a 50 mg zinc 00 :00 daily for l (220 mg) 30 days. capsule lactulose 2021-0 2021- No 20g Q24H Take 30 mL M ethodi 10 gram/15 12-03 ([address] mL (15 mL) 00:00: 00:00 total) by H ospita solution 00 :00 mouth l daily as needed (2 to 3 soft stools per day) for up to 30 days. ondansetron 2021-0 2021- No 4mg Q8H Take 1 Met hodi ODT 12-03 tablet (4 st (ZOFRAN-ODT 00:00: 00:00 mg total) Hospita ) 4 MG 00 :00 by mouth l disintegrat every 8 ing tablet (eight) hours as needed for nausea or vomiting for up to 30 days. lactulose 2021-0 2- No 20g Q24H Take 30 mL M ethodi 10 gram/15 12-03 ([address] mL (15 mL) 00:00: 00:00 total) by H ospita solution 00 :00 mouth l daily as needed (2 to 3 soft stools per day) for up to 30 days. ondansetron 2021-0 2- No 4mg Q8H Take 1 Met hodi ODT 12-03 tablet (4 st (ZOFRAN-ODT 00:00: 00:00 mg total) Hospita ) 4 MG 00 :00 by mouth l disintegrat every 8 ing tablet (eight) hours as needed for nausea or vomiting for up to 30 days. lactulose 2021-2021- No 20g Q24H Take 30 mL M ethodi 10 gram/15 12-03 ([address] mL (15 mL) 00:00: 00:00 total) by H ospita solution 00 :00 mouth l daily as needed (2 to 3 soft stools per day) for up to 30 days. ondansetron 2021- No 4mg Q8H Take 1 Met hodi ODT 12-03 tablet (4 st (ZOFRAN-ODT 00:00: 00:00 mg total) Hospita ) 4 MG 00 :00 by mouth l disintegrat every 8 ing tablet (eight) hours as needed for nausea or vomiting for up to 30 days. lactulose 2021- No 20g Q24H Take 30 mL M ethodi 10 gram/15 12-03 ([address] mL (15 mL) 00:00: 00:00 total) by H ospita solution 00 :00 mouth l daily as needed (2 to 3 soft stools per day) for up to 30 days. ondansetron 2021- No 4mg Q8H Take 1 Met hodi ODT 12-03 tablet (4 st (ZOFRAN-ODT 00:00: 00:00 mg total) Hospita ) 4 MG 00 :00 by mouth l disintegrat every 8 ing tablet (eight) hours as needed for nausea or vomiting for up to 30 days. furosemide 2021-2021- No 40mg Q.5D [...] and nightly for 30 days. furosemide 2021-0 2022- No 40mg Q.5D Take 1 Meth dimitri (Lasix) 40 12-03- tablet (40 st mg tablet 00:00: 00:00 mg total) Ho spita 00 :00 by mouth 2 l (two) times a day for 30 days. pantoprazol 2021-0 2- No 40mg QD Take 1 Met hodi e 12-03 tablet (40 st (PROTONIX) 00:00: 00:00 mg total) H ospita 40 MG EC 00 :00 by mouth l tablet daily for 30 days. spironolact 2021-0 2022- No 50mg Q.5D Take 1 Met [...] Q.5D Take 1 Meth dimitri (Lasix) 40 12-03- tablet (40 st mg tablet 00:00: 00:00 [...] 12-03- ([address] 100 mg/mL 00:00: 00:00 total) by Ho spita suspension 00 :00 mouth 4 l (four) times a day before meals and nightly for 30 days. furosemide 2022-0 2022- No 40mg Q.5D Take 1 Meth dimitri (Lasix) 40 12-03- tablet (40 st mg tablet 00:00: 00:00 [...] 12-03- ([address] 100 mg/mL 00:00: 00:00 total) by Ho spita suspension 00 :00 mouth 4 l (four) times a day before meals and nightly for 30 days. furosemide 2022-0 2022- No 40mg Q.5D Take 1 Meth dimitri (Lasix) 40 12-03- tablet (40 st mg tablet 00:00: 04:59 mg total) Ho spita 00 :00 by mouth 2 l (two) times a day for 30 days. lactulose 2021-2021- No 20g Q24H Take 30 mL M ethodi 10 gram/15 12-03- ([address] mL (15 mL) 00:00: 04:59 total) by H ospita solution 00 :00 mouth l daily as needed (2 to 3 soft stools per day) for up to 30 days. pantoprazol 2021- No 40mg QD [...] Q.5D Take 1 Meth dimitri (Lasix) 40 12-03- tablet (40 st mg tablet 00:00: 04:59 mg total) Ho spita 00 :00 by mouth 2 l (two) times a day for 30 days. lactulose 2021-0 2021- No 20g Q24H Take 30 mL M ethodi 10 gram/15 12-03 ([address] mL (15 mL) 00:00: 04:59 total) by H ospita solution 00 :00 mouth l daily as needed (2 to 3 soft stools per day) for up to 30 days. pantoprazol 2021- No 40mg QD [...] days. ondansetron No 4mg Q8H Take 1 Met hodi [...] and nightly for 30 days. HYDROcodone 2021- [place] [id number] 1{tbl} Q6H Take 1 Methodi -acetaminop -03 01- tablet by st hen ([facility]) 00:00: 00:00 mouth [facility] 10-325 mg 00 :00 every 6 l per tablet (six) hours as needed for severe pain for up to 10 days .acute pain. Max Daily Amount: 4 tablets HYDROcodone 2021- No [id number] 1{tbl} Q6H Take 1 Methodi -acetaminop -12-[address] hen ([employer]) 00:00: 00:00 mouth [facility] 10-325 mg 00 :00 every 6 l per tablet (six) hours as needed for severe pain for up to 10 days .acute pain. Max Daily Amount: 4 tablets HYDROcodone 2021- 1{tbl} Q6H Take 1 Methodi -acetaminop 8-25 - tablet by [facility] ([place]) 00:00: 00:00 mouth [facility] 10-325 mg 00 :00 every 6 l per tablet (six) hours as needed for severe pain for up to 10 days .acute pain. Max Daily Amount: 4 tablets HYDROcodone No 1{tbl} Q6H Take 1 Methodi -acetaminop 8-25 - tablet by [facility] ([place]) 00:00: 00:00 mouth [facility] 10-325 mg 00 :00 every 6 l per tablet (six) hours as needed for severe pain for up to 10 days .acute pain. Max Daily Amount: 4 tablets HYDROcodone 1{tbl} Q6H Take 1 Methodi -acetaminop 8-25 - tablet by [facility] ([place]) 00:00: 00:00 mouth [facility] 10-325 mg 00 :00 every 6 l per tablet (six) hours as needed for severe pain for up to 10 days .acute pain. Max Daily Amount: 4 tablets HYDROcodone 1{tbl} Q6H Take 1 Methodi -acetaminop 8-25 - tablet by [facility] ([place]) 00:00: 04:59 mouth [facility] 10-325 mg 00 :00 every 6 l per tablet (six) hours as needed for severe pain for up to 10 days .acute pain. Max Daily Amount: 4 tablets pancrelipas 2021- No 1{capsu Q.[id number] Take 1 Methodi e, 8-18 08-18 le} [id number] capsule by lipase-prot 20:41: 00:00 3D mouth 3 [facility] ease-amylas 22 :00 (three) l e, (CREOND) times a 12,000-38,0 day with 00 -60,000 meals. unit capsule,del ayed release(DR/ EC) capsule pancrelipas 2021- No 1{capsu Q.[id number] Take 1 Methodi e, 8-18 08-18 le} [id number] capsule by st lipase-prot 20:41: 00:00 3D mouth 3 [facility] sp[facility] ease-amylas 22 :00 (three) l e, (CREOND) times a 12,000-38,0 day with 00 -60,000 meals. unit capsule,del ayed release(DR/ EC) capsule pancrelipas 2021-2- No 1{capsu Q.[id number] Take 1 Methodi e, 8 08-18 le} [id number] capsule by st lipase-prot 20:41: 00:00 3D mouth 3 [facility] ease-amylas 22 :00 (three) l e, (CREOND) times a 12,000-38,0 day with 00 -60,000 meals. unit capsule,del ayed release(DR/ EC) capsule pancrelipas 2021-2021- No 1{capsu Q.[id number] Take 1 Methodi e, 11-26 08-18 le} [id number] capsule by st lipase-prot 20:41: 00:00 3D mouth 3 [facility] ease-amylas 22 :00 (three) l e, (CREOND) times a 12,000-38,0 day with 00 -60,000 meals. unit capsule,del ayed release(DR/ EC) capsule pancrelipas 2021-2021- No 1{capsu Q.[id number] Take 1 Methodi e, 11-26 08-18 le} [id number] capsule by st lipase-prot 20:41: 00:00 3D mouth 3 [facility] ease-amylas 22 :00 (three) l e, (CREOND) times a 12,000-38,0 day with 00 -60,000 meals. unit capsule,del ayed release(DR/ EC) capsule pancrelipas 2021-2021- No 1{capsu Q.[id number] Take 1 Methodi e, 8 08-18 le} [id number] capsule by st lipase-prot 20:41: 00:00 3D mouth 3 [facility] ease-amylas 22 :00 (three) l e, (CREOND) times a 12,000-38,0 day with 00 -60,000 meals. unit capsule,del ayed release(DR/ EC) capsule spironolact 2022-0 2022- No 25mg QD Take 25 mg [facility]i one 7-18 07-[address] (ALDACTONE) 14:44: 00:00 daily. Hos alvaro 25 MG 06 :00 l tablet furosemide 2022-0 2022- No 20mg QD Take 20 mg Methodi (LASIX) 20 7-18 07-[address] mg tablet 14:44: 00:00 daily. Hospi ta 06 :00 l spironolact 2022-0 2022- No 25mg QD Take 25 mg [facility] one 7-18 07-[address] (ALDACTONE) 14:44: 00:00 daily. Hos alvaro 25 MG 06 :00 l tablet furosemide 2-0 2022- No 20mg QD Take 20 mg [facility] (LASIX) 20 7-18 07-[address] mg tablet 14:44: 00:00 daily. Hospi ta 06 :00 l spironolact 2022-0 2022- No 25mg QD Take 25 mg [facility] one 7-18 07-[address] (ALDACTONE) 14:44: 00:00 daily. Hos alvaro 25 MG 06 :00 l tablet furosemide 2-0 2022- No 20mg QD Take 20 mg [facility] (LASIX) 20 7-18 07-[address] mg tablet 14:44: 00:00 daily. Hospi ta 06 :00 l spironolact 2022-0 2022- No 25mg QD Take 25 mg [facility] one 7-18 07-[address] (ALDACTONE) 14:44: 00:00 daily. Hos alvaro 25 MG 06 :00 l tablet furosemide 2-0 2022- No 20mg QD Take 20 mg [facility] (LASIX) 20 7-18 07-[address] mg tablet 14:44: 00:00 daily. Hospi ta 06 :00 l spironolact 2022-0 2022- No 25mg QD Take 25 mg [facility] one 7-18 07-[address] (ALDACTONE) 14:44: 00:00 daily. Hos alvaro 25 MG 06 :00 l tablet furosemide 2022-0 2022- No 20mg QD Take 20 mg [facility] (LASIX) 20 7-18 07-[address] mg tablet 14:44: 00:00 daily. Hospi ta 06 :00 l spironolact 2021-0 2- No 25mg QD Take 25 mg [facility] one 10-[address] (ALDACTONE) 14:44: 00:00 daily. Hos alvaro 25 MG 06 :00 l tablet furosemide 2021-0 2- No 20mg QD Take 20 mg [facility] (LASIX) 20 10-[address] mg tablet 14:44: 00:00 daily. Hospi ta 06 :00 l spironolact 2-0 2022- No 50mg Q.5D Take 1 Met hodi one - 08-25 tablet (50 st (ALDACTONE) 00:00: 00:00 mg total) Hospita 50 MG 00 :00 by mouth 2 l tablet (two) times a day for 30 days. furosemide 2021-0 2- No 40mg Q.5D Take 1 Meth dimitri (Lasix) 40 - 08-25 tablet (40 st mg tablet 00:00: 00:00 mg total) Ho spita 00 :00 by mouth 2 l (two) times a day for 30 days. spironolact 2021-0 2022- No 50mg Q.5D Take 1 Met hodi one -18 08-25 tablet (50 st (ALDACTONE) 00:00: 00:00 mg total) Hospita 50 MG 00 :00 by mouth 2 l tablet (two) times a day for 30 days. furosemide 2021-0 2022- No 40mg Q.5D Take 1 Meth dimitri (Lasix) 40 - 08-25 tablet (40 st mg tablet 00:00: 00:00 mg total) Ho spita 00 :00 by mouth 2 l (two) times a day for 30 days. spironolact 2-0 2022- No 50mg Q.5D Take 1 Met hodi one -18 08-25 tablet (50 st (ALDACTONE) 00:00: 00:00 mg total) Hospita 50 MG 00 :00 by mouth 2 l tablet (two) times a day for 30 days. furosemide 2021-0 2022- No 40mg Q.5D Take 1 Meth dimitri (Lasix) 40 7-18 08-25 tablet (40 st mg tablet 00:00: 00:00 mg total) Ho spita 00 :00 by mouth 2 l (two) times a day for 30 days. spironolact 2021- 2022- No 50mg Q.5D Take 1 Met [...] Branch 09/29/21 at 0100, Routine naproxen Yes [id number] 500mg Take 1 Univers (NAPROSYN) 09-28 9104 tablet by ity of 500 mg 00:00: mouth 2 [place] tablet 00 (two) Medical times Branch daily with meals. naproxen Yes [id number] 500mg Take 1 Univers (NAPROSYN) 6- 9104 [...] 04/02/21 at 1445, VERN ondansetron 2020-04 Yes [id number] 4mg Take 1 Univers 4 mg 2-23 tablet by ity of disintegrat 00:00: mouth [place] ing tablet 00 every 8 Medica l (eight) Branch hours as needed for Nausea and Vomiting (N/V). ondansetron 2020-04 Yes [id number] 4mg Take 1 Univers 4 mg 2-23 tablet by ity of disintegrat 00:00: mouth [place] ing tablet 00 every 8 Medica l (eight) Branch hours as needed for Nausea and Vomiting (N/V). ondansetron 2020-04 Yes [id number] 4mg Take 1 Univers 4 mg 2-23 tablet by ity of disintegrat 00:00: mouth [place] ing tablet 00 every 8 Medica l (eight) Branch hours as needed for Nausea and Vomiting (N/V). ondansetron 2020-04 Yes [id number] 4mg Take 1 Univers 4 mg 2-23 tablet by ity of disintegrat 00:00: mouth [place] ing tablet 00 every 8 Medica l (eight) Branch hours as needed for Nausea and Vomiting (N/V). ondansetron 2020-04 Yes [id number] 4mg Take 1 Univers 4 mg 2-23 [...] No 296mL Take 1 Meth dimitri citrate -12 08-[address] solution 00:00: 00:00 (296 mL Hospi ta 00 :00 total) by l mouth once as needed (constipat ion) for up to 1 dose. magnesium 2020-04- No 296mL Take 1 Meth dimitri citrate 1-12 08-[address] solution 00:00: 00:00 (296 mL [...] 100mg Q.5D Take 1 Metho di sodium - 12-[address] (Colace) 00:00: 05:59 (100 mg Hospi ta 100 MG 00 :00 total) by l capsule mouth 2 (two) times a day for 30 days. docusate 2020-04- No 100mg Q.5D Take 1 Metho di sodium - 12-[address] (Colace) 00:00: 05:59 (100 [...] to 3 soft stools per day). lactulose 0 2021- No 20g Q24H Take 30 mL M ethodi 10 gram/15 7-18 08-25 ([address] mL (15 mL) 00:00: 00:00 total) by H ospita solution 00 :00 mouth l daily as needed (2 to 3 soft stools per day). lactulose 0 2021- No 20g Q24H Take 30 mL M ethodi 10 gram/15 7-18 08-25 ([address] mL (15 mL) 00:00: 00:00 total) by H ospita solution 00 :00 mouth l daily as needed (2 to 3 soft stools per day). lactulose 0 2021- No 20g Q24H Take 30 mL M ethodi 10 gram/15 7-18 08-25 ([address] mL (15 mL) 00:00: 00:00 total) by H ospita solution 00 :00 mouth l daily as needed (2 to 3 soft stools per day). lactulose 0 2021- No 20g Q24H Take 30 mL [...] soft stools per day). cholecalcif 2020- No [id number] 1999U Take 2 Univers nuno, 6-26 07-27 tablets by ity of vitamin D3, 00:00: 04:59 [place] 25 mcg 00 :00 daily for Medical (1,000 30 days. Branch unit) tablet cyanocobala 2020- No [id number] 1000ug inject 1 Univers min 1,000 6-26 07-27 mL under ity o f mcg/mL 00:00: 04:59 the skin [place] injection 00 :00 every 24 Medica l (twenty-fo Branch ur) hours for 30 days. KCL 20 mEq 2020- No [id number] 20meq Take 1 Univers tablet 6-26 07-27 tablet by ity of 00:00: 04:59 mouth [place] 00 :00 daily for Medical 30 days. Branch cholecalcif 2020- No [id number] Take 2 Univers nuno, 6-26 07-27 tablets by ity of vitamin D3, 00:00: 04:59 mouth [place] 25 mcg 00 :00 daily for Medical (1,000 30 days. Branch unit) tablet cyanocobala 2020- No [id number] 1000ug inject 1 Univers min 1,000 6-26 07-27 mL under ity o f mcg/mL 00:00: 04:59 the skin [place] injection 00 :00 every 24 Medica l (twenty-fo Branch ur) hours for 30 days. KCL 20 mEq 2020- No [id number] 20meq Take 1 Univers tablet 6-26 07-27 [...] ity o f mL oral 18:10: daily. [place] solution 25 Medical Branch pantoprazol Yes 40mg [...] ity o f mL oral 13:10: daily. [place] solution 25 Medical Branch pantoprazol Yes 40mg Take 40 mg Univers e 6-25 by mouth ity of (PROTONIX) 13:10: daily. [place] 40 mg EC 25 Medical tablet Branch lactulose Yes 30mL Take 30 mL Un marline 10 gram/15 6-25 by mouth ity o f mL oral 13:10: daily. [place] solution 25 Medical Branch pantoprazol Yes 40mg [...] unresponsi ve to Ondansetro n proMETHazin Yes [id number] 12.5mg Take 1 Univers e 12.5 mg 6-25 tablet by ity o f tablet 00:00: mouth [place] 00 every 6 Medical (six) Branch hours as needed for Nausea and Vomiting (N/V) or N/V unresponsi ve to Ondansetro n. proMETHazin Yes [id number] 12.5mg Take 1 Univers e 12.5 mg 6-25 tablet by ity o f tablet 00:00: mouth [place] 00 every 6 Medical (six) Branch hours as needed for Nausea and Vomiting (N/V) or N/V unresponsi ve to Ondansetro n. proMETHazin Yes [id number] 12.5mg Take 1 Univers e 12.5 mg 6-25 tablet by ity o f tablet 00:00: mouth [place] 00 every 6 Medical (six) Branch hours as needed for Nausea and Vomiting (N/V) or N/V unresponsi ve to Ondansetro n. proMETHazin Yes [id number] 12.5mg Take 1 Univers e 12.5 mg 6-25 tablet by ity o f tablet 00:00: mouth [place] 00 every 6 Medical (six) Branch hours as needed for Nausea and Vomiting (N/V) or N/V unresponsi ve to Ondansetro n. proMETHazin Yes [id number] 12.5mg Take 1 Univers e 12.5 mg 6-25 tablet by ity o f tablet 00:00: mouth [place] 00 every 6 Medical (six) Branch hours as needed for Nausea and Vomiting (N/V) or N/V unresponsi ve to Ondansetro n. proMETHazin Yes [id number] 12.5mg Take 1 Univers e 12.5 mg 6-25 tablet by ity o f tablet 00:00: mouth [place] 00 every 6 Medical (six) Branch hours as needed for Nausea and Vomiting (N/V) or N/V unresponsi ve to Ondansetro n. proMETHazin Yes [id number] 12.5mg Take 1 Univers e 12.5 mg 6-25 tablet by ity o f tablet 00:00: mouth [place] 00 every 6 Medical (six) Branch hours as needed for Nausea and Vomiting (N/V) or N/V unresponsi ve to Ondansetro n. proMETHazin Yes [id number] 12.5mg Take 1 Univers e 12.5 mg 6-25 tablet by ity o f tablet 00:00: mouth [place] 00 every 6 Medical (six) Branch hours as needed for Nausea and Vomiting (N/V) or N/V unresponsi ve to Ondansetro n. proMETHazin Yes [id number] 12.5mg Take 1 Univers e 12.5 mg 6-25 tablet by ity o f tablet 00:00: mouth [place] 00 every 6 Medical (six) Branch hours as needed for Nausea and Vomiting (N/V) or N/V unresponsi ve to Ondansetro n. proMETHazin Yes [id number] 12.5mg Take 1 Univers e 12.5 mg 6-25 tablet by ity o f tablet 00:00: mouth [place] 00 every 6 Medical (six) Branch hours as needed for Nausea and Vomiting (N/V) or N/V unresponsi ve to Ondansetro n. furosemide 2020- No [id number] 40mg Take 1 Univers 40 mg 6-25 07-26 tablet by ity of tablet 00:00: 04:59 mouth [place] 00 :00 every Medical morning Branch and evening for 30 days. lipase-prot 2020- No [id number] 2{capsu Take 2 Univers ease-amylas 6-25 07-26 le} capsules ity of e 00:00: 04:59 by mouth 3 [place] 12,000-38,0 00 :00 (three) Medic al 00 -60,000 times Branch unit daily with capsule meals for 30 days. lactobacill 2020- No [id number] .5mg Take 1 Univers us 6-25 07-26 tablet by ity of acidophilus 00:00: 04:59 mouth 2 [place] 00 :00 (two) Medical times Branch daily for 30 days. furosemide 2020- No [id number] 40mg Take 1 Univers 40 mg 6-25 07-26 tablet by ity of tablet 00:00: 04:59 mouth [place] 00 :00 every Medical morning Branch and evening for 30 days. lipase-prot 2020- No [id number] 2{capsu Take 2 Univers ease-amylas 6-25 07-26 le} capsules ity of e 00:00: 04:59 by mouth 3 [place] 12,000-38,0 00 :00 (three) Medic al 00 -60,000 times Branch unit daily with capsule meals for 30 days. lactobacill 2020- No [id number] .5mg Take 1 Univers us 6-25 07-26 tablet by ity of acidophilus 00:00: 04:59 mouth 2 [place] 00 :00 (two) Medical times Branch daily for 30 days. vancomycin 2020- No [id number] 125mg Take 1 Univers 125 mg 6-25 07-06 capsule by ity of capsule 00:00: 04:59 mouth 4 [place] 00 :00 (four) Medical times Branch daily for 10 days. vancomycin 2020- No [id number] 125mg Take 1 Univers 125 mg 6-25 07-06 capsule by ity of capsule 00:00: 04:59 mouth 4 [place] 00 :00 (four) Medical times Branch daily [...] Indication s: acute pain cephALEXin 2020- No [id number] 500mg Take 1 Univers 500 mg 6-25 07-01 capsule by ity of capsule 00:00: 04:59 mouth 4 [place] 00 :00 (four) Medical times Branch daily for 5 days. cephALEXin 2020- No [id number] 500mg Take 1 Univers 500 mg 6-25 07-01 capsule by ity of capsule 00:00: 04:59 mouth 4 [place] 00 :00 (four) Medical times Branch daily for 5 days. meperidine 2021-0 Yes 25mg 25 mg, Unive rs (DEMEROL) 10-02 Intramuscu ity of injection 22:11: lar, [place] 25 mg 15 Q6HPRN, Medical Starting Branch [facility] 10/02/20 at 1711, Until Discontinu ed, [...] 300 mg, IV Unive rs sucrose 09-30 0624 Infusion, ity of (VENOFER) 21:30: 20:00 DAILY, [place] 300 mg in 00 :55 First dose Medi molly NaCl 0.9% on Branch (NS) 250 mL 09/30/20 at infusion 1630, For 4 doses vancomycin Yes 125mg 125 mg, Uni vers (VANCOCIN) 09-30 Oral, QID, ity of capsule 125 21:15: First dose [place] mg 00 on [facility] 09/30/20 at Branch 1615, Until Discontinu ed, VERN
Fa culty member approving Non-formul mary medication : TOMASA RUCKER
Sami kelvin for non-formul mary use: SPECIFIC INDICATION FOR NONFORMULA RY PRODUCT
Reason for Anti-Infec tive: Documented Infection< br>Docu mented Infection Site: Abdominal< br>Duratio n of Therapy: 7 days proMETHazin 0 2021- No 12.5mg 12.5 mg, Univers e 6-22 06-24 IV ity of (PHENERGAN) 17:11: 19:59 Piggyback, [place] 12.5 mg in 58 :55 Q4HPRN, Medica l NaCl 0.9% Starting Branch (NS) 50 mL Tue IV 09/30/20 at piggyback 1211, Until Geraldine 10/02/20 at 1459, Routine, Nausea and Vomiting (N/V) meperidine 2020- No 50mg 50 mg, [facility] ers (DEMEROL) 09-30 Slow IV ity of [...] ed, Routine zolpidem Yes 2.5mg 2.5 mg, [facility] rs (AMBIEN) 09-30 Oral, ity of tablet [...] 1615, Routine cholecalcif Yes 2000U 2,000 [facility] ers nuno - Units, ity of (vitamin 20:00: Oral, [place] [...] Mon Branch 09/29/20 at 0230, Routine piperacilli No 3.375g 3.375 g, Univers n-tazobacta 09-29 IV ity of m (ZOSYN) 07:30: 07:00 Piggyback, [place] 3.375 g in 00 :00 ONCE, 1 Medica l NaCl 0.9% dose, [facility] Branc h (NS) 100 mL 09/29/20 [...] lactobacill 2020- No 1{tbl} 1 tablet, Univers 09-29 Oral, BID, ity of acidophilus 06:45: 14:05 First dose [place] (ACIDOPHILL 00 :17 on Mon Medica l US) 25 09/29/20 at Branch million 0145, cell -100 Until mg captab 1 Discontinu tablet ed, Routine ondansetron Yes 4mg 4 mg, Slow Univers (ZOFRAN 09-29 IV Push, ity of (PF)) 06:42: Q6HPRN, [place] injection 4 17 Starting Medi molly mg Mon [place] 09/29/20 at 0142, Until Discontinu ed, Routine, Nausea and Vomiting (N/V) iopamidol 2020- No [id number] 100mL 100 mL, Univers (ISOVUE 09-29 Intravenou [...] Branch 09/29/20 at 0045, Routine NaCl 0.9% No 1000mL at 999 Uni vers (NS) IV 09-29 mL/hr, ity of infusion 05:45: 06:38 Intravenou [place] 1,000 mL 00 :45 s, Medical CONTINUOUS Branch , Starting 09/29/20 at 0045, Until 09/29/20 at 0138, Routine Meloxicam Meloxicam 2019- No Gm 1 tablet Common 09-17 [facility] 00:00: 00:00 - [facility] 00 :00 [facility] flu vaccine 2019-2019- No .5mL 0.5 mL, Un marline 6 [...] for Pain (scale 4-6). acetaminoph 2020-0 Yes [id number] 1{tbl} Take 1 Univers en-codeine 5-02 tablet by ity of 300-30 mg 00:00: mouth [place] tablet 00 every 4 Medical (four) Branch hours as needed for Pain (scale 4-6). acetaminoph 2020-0 Yes [id number] 1{tbl} Take 1 Univers en-codeine 5-02 tablet by ity of 300-30 mg 00:00: mouth [place] tablet 00 every 4 Medical (four) Branch hours as needed for Pain (scale 4-6). acetaminoph 2020-0 Yes [id number] 1{tbl} Take 1 Univers en-codeine 5-02 tablet by ity of 300-30 mg 00:00: mouth [place] tablet 00 every 4 Medical (four) Branch hours as needed for Pain (scale 4-6). lactulose 2019-0 2020- No [id number] 30mL Take 30 mL Univers 10 gram/15 5- 06-02 by mouth 2 it y of mL oral 00:00: 04:59 (two) [place] solution 00 :00 times Medical daily for Branch 30 days. pantoprazol 2019-0 2020- No [id number] 40mg Take 1 Univers e 40 mg EC 5-02 06-02 tablet by ity of tablet 00:00: 04:59 mouth [place] 00 :00 daily for Medical 30 days. Branch lactulose 2019-0 2020- No [id number] 30mL Take 30 mL Univers 10 gram/15 5-02 06-02 by mouth 2 it y of mL oral 00:00: 04:59 (two) [place] solution 00 :00 times Medical daily for Branch 30 days. pantoprazol 2019-0 2020- No [id number] 40mg Take 1 Univers e 40 mg EC 5-02 06-02 tablet by ity of tablet 00:00: 04:59 mouth [place] 00 :00 daily for Medical 30 days. Branch propranolol 2019-0 2020- No [id number] 10mg Take 1 Univers 10 mg 5-02 [...] Slow IV ity of (PF)) 09:22: Push, [place] injection 46 Q4HPRN, Medical 50 mcg Starting Branch Tue08/10/19 at 0422, Until Discontinu ed, Routine, Pain (scale 4-6) ondansetron 2019-0 2020- No 4mg 4 mg, Slow Univers (ZOFRAN 08-09 IV Push, ity of (PF)) 08:55: 03:29 Q6HPRN, [place] injection 4 07 :20 Starting Medi molly [...] Take 1 Univ ers 600 mg -18 05-02 tablet by ity of [...] e Sodium e Sodium Singh defined [facility] Acetaminoph Acetaminoph Yes Gm not Common en-Codeine en-Codeine Singh defined [facility] #3 #3 [facility] Oseltamivir Oseltamivir Yes [...] Gm not Common -Pot -Pot Singh defined [facility] Clavulanate Clavulanate [facility] Immunizations Ordered Immunization Filled Immunization Date Status Commen ts Source Name Name FLUCELVAX QUAD 2021-12-[address] 00:00:00 [facility] FLUCELVAX QUAD 2021-12-[address] 00:00:00 Hospital FLUCELVAX QUAD 2021-12-[address] 00:00:00 [facility] FLUCELVAX QUAD 2021-12-[address] 00:00:00 Hospital FLUCELVAX QUAD 2021-12-[address] 00:00:00 [facility] FLUCELVAX QUAD PF 2021-02-[address] 00:00:00 Hospital FLUCELVAX QUAD PF 2021-02-[address] 00:00:00 Hospital FLUCELVAX QUAD PF 2021-02-[address] 00:00:00 Hospital FLUCELVAX QUAD PF 2021-02-[address] 00:00:00 Hospital FLUCELVAX QUAD PF 2021-02-[address] 00:00:00 Hospital FLUCELVAX QUAD PF 2021-02-[address] 00:00:00 Hospital Pneumococcal 2020-10-03 Completed University o f [...] ical PPSV23 (PNEUMOVAX) Branch Pneumococcal 2020-10-03 Completed [facility] Polysaccharide 00:00:00 Hospital Pneumococcal 2020-10-03 Completed [facility] Polysaccharide 00:00:00 [facility] SARS-COV-2 COVID-19 2020-08-08 Completed Unive rsity [...] Unive rsity of MODERNA VACCINE 00:00:00 [place] [facility] ical Branch SARS-COV-2 COVID-19 2020-08-08 Completed Unive rsity of MODERNA VACCINE 00:00:00 [place] [facility] ical Branch SARS-COV-2 COVID-19 2020-08-08 Completed Unive rsity of MODERNA VACCINE 00:00:00 [place] [facility] ical Branch SARS-COV-2 COVID-19 2020-08-08 Completed Unive rsity of MODERNA VACCINE 00:00:00 [place] [facility] ical Branch SARS-COV-2 COVID-19 2020-08-08 Completed Unive rsity of MODERNA VACCINE 00:00:00 [place] [facility] ical Branch SARS-COV-2 COVID-19 2020-08-08 Completed Unive rsity of MODERNA 12+ YRS 00:00:00 [facility] ical VACCINE Branch MODERNA COVID-19 MRNA 2020-08-08 Completed Met [facility]odist VACCINATION 00:00:00 Hospital MODERNA COVID-19 MRNA 2020-08-08 Completed Met [facility]odist VACCINATION 00:00:00 Hospital SARS-COV-2 COVID-19 2020-07-11 Completed Unive rsity of MODERNA VACCINE 00:00:00 [place] [facility] ical Branch SARS-COV-2 COVID-19 2020-07-11 Completed Unive rsity of MODERNA VACCINE 00:00:00 [place] [facility] ical Branch SARS-COV-2 COVID-19 2020-07-11 Completed Unive rsity of MODERNA VACCINE 00:00:00 [facility] ical Branch SARS-COV-2 COVID-19 2020-07-11 Completed Unive rsity of MODERNA VACCINE 00:00:00 [facility] ical Branch SARS-COV-2 COVID-19 2020-07-11 Completed Unive rsity of MODERNA VACCINE 00:00:00 [place] [facility] ical Branch SARS-COV-2 COVID-19 2020-07-11 Completed Unive rsity of MODERNA VACCINE 00:00:00 [facility] ical Branch SARS-COV-2 COVID-19 2020-07-11 Completed Unive rsity of MODERNA VACCINE 00:00:00 [facility] ical Branch SARS-COV-2 COVID-19 2020-07-11 Completed Unive rsity of MODERNA VACCINE 00:00:00 [facility] ical Branch SARS-COV-2 COVID-19 2020-07-11 Completed Unive rsity of MODERNA VACCINE 00:00:00 [facility] ical Branch SARS-COV-2 COVID-19 2020-07-11 Completed Unive rsity of MODERNA VACCINE 00:00:00 [facility] ical Branch SARS-COV-2 COVID-19 2020-07-11 Completed Unive rsity of MODERNA 12+ YRS 00:00:00 [facility] ical VACCINE Branch MODERNA COVID-19 MRNA 2020-07-11 Completed Met hodist VACCINATION 00:00:00 [facility] MODERNA COVID-19 MRNA 2020-07-11 Completed Met hodist VACCINATION 00:00:00 [facility] Influenza Virus 2019-08-11 Completed Universit y [...] MO Branch FLUZONE QUAD PF 2019-08-11 Completed [facility] 00:00:00 Hospital FLUZONE QUAD PF 2019-08-11 Completed [facility] 00:00:00 Hospital Influenza (IM) 2018-05-29 Completed [facility] Preservative Free 00:00:00 Hospita l Influenza (IM) 2018-05-29 Completed [facility] Preservative Free 00:00:00 Hospita l Influenza (IM) 2017-01-21 Completed [facility] Preservative Free 00:00:00 Hospita l Influenza (IM) 2017-01-21 Completed [facility] Preservative Free 00:00:00 Hospita l Influenza (IM) 2016-02-28 Completed [facility] Preservative Free 00:00:00 Hospita l Influenza (IM) 2016-02-28 Completed [facility] Preservative Free 00:00:00 Hospita l Vital Signs Vital Name Observation Time Observation Value Comments Source Systolic blood 2022-02-15 21:55:49 128 mm[Hg] Univer sity of pressure [facility] Diastolic blood 2022-02-15 21:55:49 79 mm[Hg] Unive rsity of pressure [facility] Heart rate 2022-02-15 21:55:49 75 /min [facility] [place] [facility] Respiratory rate 2022-02-15 21:55:49 19 /min Univ ersity [facility] [place] [facility] Oxygen saturation in 2022-02-15 21:55:49 99 /min University of Arterial blood by [facility] Pulse oximetry Branch Body temperature 2022-02-15 19:43:00 35.89 [place] [facility] [place] [facility] Body height 2022-02-15 19:43:00 162.6 cm [facility] [place] [facility] Body weight 2022-02-15 19:43:00 113.399 kg [facility] [place] [facility] BMI 2022-02-15 19:43:00 42.91 kg/m2 [facility] [place] [facility] Systolic blood 2021-09-29 03:00:00 126 mm[Hg] Univer sity of pressure [place] [facility] Diastolic blood 2021-09-29 03:00:00 57 mm[Hg] Unive rsity of pressure [place] [facility] Heart rate 2021-09-29 03:00:00 78 /min [facility] [place] [facility] Body temperature 2021-09-29 03:00:00 37.28 [place] [facility] [place] [facility] Respiratory rate 2021-09-29 03:00:00 16 /min [facility] [place] [facility] Body height 2021-09-29 03:00:00 162.6 cm [facility] [place] [facility] Body weight 2021-09-29 03:00:00 117.935 kg [facility] [place] [facility] BMI 2021-09-29 03:00:00 44.63 kg/m2 [facility] [place] [facility] Oxygen saturation in 2021-09-29 03:00:00 97 /min University of Arterial blood by [facility] Pulse oximetry Branch Systolic blood 2021-04-02 18:55:00 138 mm[Hg] Univer sity of pressure [place] [facility] Diastolic blood 2021-04-02 18:55:00 104 mm[Hg] Unive rsity of pressure [place] [facility] Heart rate 2021-04-02 18:55:00 74 /min [facility] [place] [facility] Body temperature 2021-04-02 18:55:00 36.78 [place] [facility] [place] [facility] Respiratory rate 2021-04-02 18:55:00 18 /min Univ [facility] [place] [facility] Body weight 2021-04-02 18:55:00 122.471 kg [facility] [place] [facility] BMI 2021-04-02 18:55:00 46.35 kg/m2 [facility] [place] [facility] Oxygen saturation in 2021-04-02 18:55:00 97 /min [facility] of Arterial blood by [facility] molly Pulse oximetry Branch Systolic blood 2020-10-03 17:23:00 132 mm[Hg] Univer sity of pressure [facility] Diastolic blood 2020-10-03 17:23:00 56 mm[Hg] Unive rsity of pressure [facility] Heart rate 2020-10-03 17:23:00 88 /min [facility] Body temperature 2020-10-03 17:23:00 36.94 Sandee [facility] Respiratory rate 2020-10-03 17:23:00 18 /min [facility] Oxygen saturation in 2020-10-03 17:23:00 94 /min [facility] Arterial blood by [facility] Pulse oximetry Branch Body weight 2020-09-30 08:11:00 121.473 kg [facility] BMI 2020-09-30 08:11:00 47.44 kg/m2 [facility] Body height 2020-09-29 03:33:00 160 cm [facility] Diastolic blood 2019-08-11 20:04:00 44 mm[Hg] Unive rsity of [facility] Heart rate 2019-08-11 20:04:00 70 /min [facility] Body temperature 2019-08-11 20:04:00 36.61 Sandee [facility] Respiratory rate 2019-08-11 20:04:00 18 /min [facility] Oxygen saturation in 2019-08-11 20:04:00 91 /min [facility] Arterial blood by [facility] molly Pulse oximetry Branch Systolic blood 2019-08-11 20:04:00 107 mm[Hg] Univer [facility]ity of pressure [facility] Body height 2019-08-10 08:01:00 162.6 cm [facility] Body weight 2019-08-10 08:01:00 119.296 kg [facility] BMI 2019-08-10 08:01:00 45.14 kg/m2 [facility] Diastolic blood 2019-08-11 20:04:00 44 mm[Hg] Unive rsity of [facility] Heart rate 2019-08-11 20:04:00 70 /min [facility] Body temperature 2019-08-11 20:04:00 36.61 [facility] 2019-08-11 20:04:00 18 /min [facility] Oxygen saturation in 2019-08-11 20:04:00 91 /min [facility] Arterial blood by [facility] Pulse oximetry [place] Systolic blood 2019-08-11 20:04:00 107 mm[facility]Hg] [facility] 2019-08-10 08:01:00 162.6 cm [facility] Body weight 2019-08-10 08:01:00 119.296 kg [facility] BMI 2019-08-10 08:01:00 45.14 kg/m2 [facility] Systolic blood 2022-02-27 23:42:53 122 mm[Hg] Method [facility] pressure Diastolic blood 2022-02-27 23:42:53 53 mm[Hg] [facility] pressure Heart rate 2022-02-27 23:42:53 73 /min [facility] Body temperature 2022-02-27 23:42:53 37.06 Sandee [facility] Respiratory rate 2022-02-27 23:42:53 18 /min [facility] Oxygen saturation in 2022-02-27 23:42:53 98 /min [facility] Arterial blood by Pulse oximetry Body weight 2022-02-26 03:00:22 118.162 kg [facility] BMI 2022-02-26 03:00:22 44.71 kg/m2 [facility] Body height 2022-02-26 02:56:00 162.6 cm [facility] Systolic blood 2022-01-06 21:13:50 124 mm[Hg] Method [facility] pressure Diastolic blood 2022-01-06 21:13:50 58 mm[facility]Hg] [facility] pressure Heart rate 2022-01-06 21:13:50 69 /min [facility] Body temperature 2022-01-06 21:13:50 35.89 Sandee [facility] Respiratory rate 2022-01-06 21:13:50 18 /min [facility] Oxygen saturation in 2022-01-06 21:13:50 95 /min [facility] Arterial blood by Pulse oximetry Body weight 2022-01-06 10:25:28 109.952 kg [facility] BMI 2022-01-06 10:25:28 41.61 kg/m2 [facility] Body height 2022-01-02 04:15:00 162.6 cm [facility] Systolic blood 2021-12-18 20:25:00 122 mm[Hg] Method [facility] pressure Diastolic blood 2021-12-18 20:25:00 57 mm[Hg] [facility] pressure Heart rate 2021-12-18 20:25:00 71 /min [facility] Body temperature 2021-12-18 20:25:00 36.94 Sandee [facility] Respiratory rate 2021-12-18 20:25:00 19 /min [facility] Oxygen saturation in 2021-12-18 20:25:00 94 /min [facility] Arterial blood by Pulse oximetry Body weight 2021-12-18 10:58:00 112.1 kg [facility] BMI 2021-12-18 10:58:00 42.42 kg/m2 [facility] Systolic blood 2021-12-03 12:21:16 129 mm[Hg] Method ist Hospital pressure Diastolic blood 2021-12-03 12:21:16 58 mm[Hg] [facility] pressure Heart rate 2021-12-03 12:21:16 68 /min [facility] Body temperature 2021-12-03 12:21:16 36.11 Sandee [facility] Respiratory rate 2021-12-03 12:21:16 20 /min [facility] Oxygen saturation in 2021-12-03 12:21:16 95 /min [facility] Arterial blood by Pulse oximetry Body weight 2021-12-03 11:09:00 112.6 kg [facility] BMI 2021-12-03 11:09:00 42.61 kg/m2 [facility] Body height 2021-10-21 16:02:36 162.6 cm [facility] Procedures Procedure Date / Time Performing Source Performed Clinician XR SHOULDER 2+ VW LEFT 2022-02-27 Viviana Ward 15:01:00 Hospital CBC WITH PLATELET AND DIFFERENTIAL 2022-02-27 Dinakar, Leah stuart Baptism 10:39:00 [facility] PROTHROMBIN TIME WITH INR 2022-02-27 DinakarJeremy Method ist 10:39:00 [facility] BASIC METABOLIC PANEL 2022-02-27 DinakarJeremy Baptism 10:39:00 [facility] HEPATIC FUNCTION PANEL 2022-02-27 Dinakar, Jeremy Baptism 10:39:00 [facility] PHOSPHORUS LEVEL 2022-02-27 Dinakar, Jeremy Baptism 10:39:00 [facility] MAGNESIUM LEVEL 2022-02-27 Dinakar, Jeremy Baptism 10:39:00 [facility] ESTIMATED GFR 2022-02-27 DinakarJeremy Baptism 10:39:00 [facility] SMEAR REVIEW 2022-02-27 DinakarJeremy Baptism 10:39:00 [facility] POC GLUCOSE 2022-02-27 Dinakar, Jeremy Baptism 09:38:00 [facility] CBC WITH PLATELET AND DIFFERENTIAL 2022-02-26 Michelakar, Leah stuart Baptism 11:53:00 [facility] PROTHROMBIN TIME WITH INR 2022-02-26 MichelakarJeremy Method ist 11:53:00 [facility] BASIC METABOLIC PANEL 2022-02-26 DinakarJeremy Baptism 11:53:00 [facility] HEPATIC FUNCTION PANEL 2022-02-26 Dinakar, Jeremy Baptism 11:53:00 [facility] PHOSPHORUS LEVEL 2022-02-26 Dinakar, Jeremy Baptism 11:53:00 [facility] MAGNESIUM LEVEL 2022-02-26 Dinakar, Jeremy Baptism 11:53:00 [facility] HEMOGLOBIN A1C 2022-02-26 Dinakar, Jeremy Baptism 11:53:00 [facility] ESTIMATED GFR 2022-02-26 Dinakar, Jeremy Baptism 11:53:00 [facility] SMEAR REVIEW 2022-02-26 DinakarJeremy Baptism 11:53:00 [facility] AMYLASE LEVEL 2022-02-26 Jeremy Sandoval 11:53:00 [facility] GASTROINTESTINAL PANEL 2022-02-26 Myar Garcia ist 03:50:00 [facility] BLOOD CULTURE, AEROBIC & ANAEROBIC 2022-02-25 Laci Garcia Baptism 23:25:00 [facility] COVID-19 QUALITATIVE RT-PCR 2022-02-25 RehreStevo potts odist 23:24:00 [facility] BLOOD CULTURE, AEROBIC & ANAEROBIC 2022-02-25 Laci Garcia chance Baptism 23:10:00 [facility] US ABDOMINAL LIMITED 2022-02-25 Myra Garciais t 21:58:[address] [facility] [address] ABDOMEN PELVIS W CONTRAST 2022-02-25 Rehrer, Stevo Frias hodist 21:28:38 [facility] ECG ED PRELIMINARY INTERPRETATION 2022-02-25 RehrerStevo Baptism 20:37:40 [facility] PROTHROMBIN TIME WITH INR 2022-02-25 RehrerStevo Method ist 20:18:00 [facility] PARTIAL THROMBOPLASTIN TIME (PTT) 2022-02-25 RehrerStevo Baptism 20:18:00 [facility] CBC WITH PLATELET AND DIFFERENTIAL 2022-02-25 ShannarerStevo 19:55:00 [facility] COMPREHENSIVE METABOLIC PANEL 2022-02-25 ShannarerStevo thodist 19:55:00 [facility] LIPASE LEVEL 2022-02-25 RehrerStevo Baptism 19:55:00 [facility] ESTIMATED GFR 2022-02-25 RehrerStevo 19:55:00 [facility] ECG 12-LEAD 2022-02-25 Rehrer, Stevo Baptism 18:42:27 [facility] RAPID INFLUENZA A/B 2022-02-15 Florian Ayers o f 21:31:00 [facility] COVID-19 (ID NOW RAPID TESTING) 2022-02-15 Florian Ayers of 21:31:00 [facility] URINALYSIS 2022-02-15 Florian Ayers of 21:04:00 [facility] CT ABDOMEN PELVIS W CONTRAST 2022-02-15 Ayers, Florian Uni versity of 20:35:57 [facility] LIPASE 2022-02-15 Ayers [facility] of 20:15:00 [facility] COMP. METABOLIC PANEL (09667) 2022-02-15 AyersCatrachomaryam Peck iversity of 20:15:00 [facility] CBC WITH DIFF 2022-02-15 [facility] of 20:15:00 [facility] CONSENT/REFUSAL FOR DIAGNOSIS AND 2022-02-15 Doctor Buck olmedo, [facility] 19:31:00 [place] [facility] PROTHROMBIN TIME WITH INR 2022-02-04 Carolin Sanches Method ist 11:20:00 Hospital PHOSPHORUS LEVEL 2022-02-04 Carolin Sanches Baptism 11:20:00 Hospital MAGNESIUM LEVEL 2022-02-04 Caroiln Sanches Baptism 11:20:00 Hospital BASIC METABOLIC PANEL 2022-02-04 Carolin Sanches Baptism 11:20:00 Hospital HEPATIC FUNCTION PANEL 2022-02-04 Carolin Sanches Baptism 11:20:00 Hospital CBC HEMOGRAM 2022-02-04 Carolin Sanches Baptism 11:20:00 Hospital ESTIMATED GFR 2022-02-04 Carolin Sanches Baptism 11:20:00 Hospital SMEAR REVIEW 2022-02-04 Carolin Sanches Baptism 11:20:00 [facility] UPPER GI TRACT, ENDOSCOPIC 2022-02-03 Carolin Sanches [place] thodist 19:36:00 Hospital PROTHROMBIN TIME WITH INR 2022-02-03 Carolin Sanches Method ist 09:29:00 Hospital PHOSPHORUS LEVEL 2022-02-03 Carolin Sanches Baptism 09:29:00 Hospital MAGNESIUM LEVEL 2022-02-03 Carolin Sanches Baptism 09:29:00 Hospital BASIC METABOLIC PANEL 2022-02-03 Carolin Sanches Baptism 09:29:00 Hospital HEPATIC FUNCTION PANEL 2022-02-03 Carolin Sanches Baptism 09:29:00 Hospital CBC HEMOGRAM 2022-02-03 Carolin Sanches Baptism 09:29:00 Hospital ESTIMATED GFR 2022-02-03 Nakia Cruz Baptism 09:29:00 Hospital SMEAR REVIEW 2022-02-03 Nakia Cruz Baptism 09:29:00 Hospital PROTHROMBIN TIME WITH INR 2022-02-02 Carolin Sanches Method ist 09:08:00 Hospital PHOSPHORUS LEVEL 2022-02-02 Carolin Sanches Baptism 09:08:00 Hospital MAGNESIUM LEVEL 2022-02-02 Carolin Sanches Baptism 09:08:00 Hospital BASIC METABOLIC PANEL 2022-02-02 Carolin Sanches Baptism 09:08:00 Hospital HEPATIC FUNCTION PANEL 2022-02-02 Carolin Sanches Baptism 09:08:00 Hospital CBC HEMOGRAM 2022-02-02 Carolin Sanches Baptism 09:08:00 Hospital ESTIMATED GFR 2022-02-02 Nakia Cruz Baptism 09:08:00 Hospital SMEAR REVIEW 2022-02-02 Nakia Cruz Baptism 09:08:00 Hospital XR ABDOMEN 1 VW PORTABLE 2022-02-01 Myra Garcia odist 22:39:25 [place] [id number] ANTI-SPIKE IGG ANTIBODY 2022-02-01 Deepak Ward Baptism TITER 11:37:00 Hospital CBC WITH PLATELET AND DIFFERENTIAL 2022-02-01 Deepak Ward Baptism 11:37:00 Hospital PROTHROMBIN TIME WITH INR 2022-02-01 Carolin Sanches Method ist 11:37:00 Hospital COMPREHENSIVE METABOLIC PANEL 2022-02-01 Bebeto Ward ethodist 11:37:00 Hospital PHOSPHORUS LEVEL 2022-02-01 Carolin Sanches Baptism 11:37:00 Hospital MAGNESIUM LEVEL 2022-02-01 Carolin Sanches Baptism 11:37:00 Hospital THYROID STIMULATING HORMONE 2022-02-01 Bebeto Ward hodist 11:37:00 Hospital T4 2022-02-01 Bebeto Ward Baptism 11:37:00 Hospital VITAMIN D 25 HYDROXY LEVEL 2022-02-01 Bebeto Ward Meth odist 11:37:00 Hospital ZZCOVID-19 SEROLOGY PATIENT 2022-02-01 Bebeto Ward Met hodist SURVEILLANCE 11:37:00 Hospital ESTIMATED GFR 2022-02-01 Bebeto Ward 11:37:00 Hospital SMEAR REVIEW 2022-02-01 Bebeto Ward 11:37:00 Hospital COVID-19 QUALITATIVE RT-PCR 2022-02-01 June Clark hodist 03:59:00 [facility] LACTIC ACID LEVEL, SEPSIS - NOW 2022-02-01 Bebeto Ward AND REPEAT 2X EVERY 3 HOURS 03:45:[address] ABDOMEN PELVIS W CONTRAST 2022-02-01 June Clark thodist 02:53:55 [facility] BLOOD CULTURE, AEROBIC & ANAEROBIC 2022-02-01 Johnna Clark 02:09:00 [facility] URINE CULTURE 2022-02-01 June Clark 01:50:00 [facility] URINALYSIS SCREEN AND MICROSCOPY, 2022-02-01 Cristopher Clark WITH REFLEX TO CULTURE 01:50:00 [facility] COMPREHENSIVE METABOLIC PANEL 2022-02-01 Rolando Olivier 01:47:00 Hospital LIPASE LEVEL 2022-02-01 Rolando Olivier 01:47:00 Hospital ESTIMATED GFR 2022-02-01 Rolando Olivier 01:47:00 Hospital LACTIC ACID LEVEL, SEPSIS - NOW 2022-02-01 Bebeto Ward AND REPEAT 2X EVERY 3 HOURS 01:47:00 Hosp ital PROTHROMBIN TIME WITH INR 2022-02-01 June Clark Metho dist 01:47:00 [facility] PARTIAL THROMBOPLASTIN TIME (PTT) 2022-02-01 Cristopher Clark 01:47:00 [facility] AMMONIA LEVEL 2022-02-01 June Clark 01:47:00 [facility] BLOOD CULTURE, AEROBIC & ANAEROBIC 2022-02-01 Johnna Clark 01:45:00 [facility] ECG ED PRELIMINARY INTERPRETATION 2022-02-01 Cristopher Clark 01:18:19 [facility] URINE CULTURE 2022-02-01 Rolando Olivier 01:17:00 Hospital CBC WITH PLATELET AND DIFFERENTIAL 2022-02-01 Rolando Olivier 01:17:00 Hospital URINALYSIS SCREEN AND MICROSCOPY, 2022-02-01 Rolando Olivier Baptism WITH REFLEX TO CULTURE 01:17:00 Hospital SMEAR REVIEW 2022-02-01 Rolando Olivier Baptism 01:17:00 Hospital ECG 12-LEAD 2022-01-31 Rolando Olivier Baptism 23:14:20 Hospital POC GLUCOSE 2022-01-06 Jeremy Sandoval 17:53:00 [facility] CBC WITH PLATELET AND DIFFERENTIAL 2022-01-06 Nakia Cruz 09:49:00 Hospital PROTHROMBIN TIME WITH INR 2022-01-06 Nakia Cruz ist 09:49:00 [facility] COMPREHENSIVE METABOLIC PANEL 2022-01-06 Jeremy Sandoval thodist 09:49:00 [facility] ESTIMATED GFR 2022-01-06 Jeremy Sandoval 09:49:00 [facility] SMEAR REVIEW 2022-01-06 Nakia Cruz 09:49:00 Hospital SURGICAL PATHOLOGY REQUEST 2022-01-05 Jeremy Sandoval Metho dist 21:05:00 [facility] ESOPHAGOGASTRODUODENOSCOPY (EGD) 2022-01-05 Elias Guzman 20:55:00 Hospital CBC WITH PLATELET AND DIFFERENTIAL 2022-01-05 Nakia Cruz 09:38:00 Hospital PROTHROMBIN TIME WITH INR 2022-01-05 Nakia Cruz ist 09:38:00 [facility] COMPREHENSIVE METABOLIC PANEL 2022-01-05 Nakia Cruz thodist 09:38:00 Hospital PHOSPHORUS LEVEL 2022-01-05 Nakia Cruz 09:38:00 Hospital MAGNESIUM LEVEL 2022-01-05 Nakia Cruz 09:38:00 Hospital ESTIMATED GFR 2022-01-05 Nakia Cruz 09:38:00 Hospital SMEAR REVIEW 2022-01-05 Nakia Cruz 09:38:00 Hospital XR ABDOMEN 1 VW PORTABLE 2022-01-[address] 16:05:00 [facility] CBC WITH PLATELET AND DIFFERENTIAL 2022-01-04 Nakia Cruz Baptism 09:33:00 Hospital PROTHROMBIN TIME WITH INR 2022-01-04 Nakia Cruz Method ist 09:33:00 Hospital COMPREHENSIVE METABOLIC PANEL 2022-01-04 Nakia Cruz Me thodist 09:33:00 Hospital PHOSPHORUS LEVEL 2022-01-04 Nakia Cruz Baptism 09:33:00 Hospital MAGNESIUM LEVEL 2022-01-04 Nakia Cruz Baptism 09:33:00 Hospital ESTIMATED GFR 2022-01-04 Nakia Cruz 09:33:00 Hospital SMEAR REVIEW 2022-01-04 Nakia Cruz Baptism 09:33:00 Hospital XR ABDOMEN 1 VW PORTABLE 2022-01-[address] 16:09:48 [place] [id number] ANTI-SPIKE IGG ANTIBODY 2022-01-03 Leah Sandoval TITER 09:01:00 [facility] CBC WITH PLATELET AND DIFFERENTIAL 2022-01-03 Nakia Cruz Baptism 09:01:00 Hospital PROTHROMBIN TIME WITH INR 2022-01-03 Nakia Cruz Method ist 09:01:00 Hospital COMPREHENSIVE METABOLIC PANEL 2022-01-03 Nakia Cruz thodist 09:01:00 Hospital PHOSPHORUS LEVEL 2022-01-03 Nakia Cruz 09:01:00 Hospital MAGNESIUM LEVEL 2022-01-03 Nakia Cruz Baptism 09:01:00 Hospital HEMOGLOBIN A1C 2022-01-03 Nakia Cruz 09:01:00 Hospital THYROID STIMULATING HORMONE 2022-01-03 Nakia Cruz odist 09:01:00 Hospital T4 2022-01-03 Nakia Cruz Baptism 09:01:00 Hospital VITAMIN D 25 HYDROXY LEVEL 2022-01-03 Nakia Cruzo dist 09:01:00 [facility]19 SEROLOGY PATIENT 2022-01-03 Jeremy Sandoval SURVEILLANCE 09:01:00 [facility] AMYLASE LEVEL 2022-01-03 Cassandra Johnson 09:01:00 [facility] ESTIMATED GFR 2022-01-03 Nakia Cruz 09:01:00 Hospital SMEAR REVIEW 2022-01-03 Nakia Cruz 09:01:00 Hospital LIPASE LEVEL 2022-01-03 Nakia Cruz 09:01:00 Hospital XR ABDOMEN 1 VW PORTABLE 2022-01-02 ElizabethDarren sheanadia Tanner odist 15:46:00 [facility] URINALYSIS SCREEN AND MICROSCOPY, 2022-01-02 Vandana Bernstein WITH REFLEX TO CULTURE 10:37:00 [facility] HCG QUALITATIVE, URINE SCREEN 2022-01-02 Vandana Bernstein Me thodist 10:37:00 [facility] URINE CULTURE 2022-01-02 Vandana Bernsteinist 10:34:00 [facility] COVID-19 QUALITATIVE RT-PCR 2022-01-02 Vandana Bernstein Meth odist 10:26:[address] [facility] CT ABDOMEN PELVIS W CONTRAST 2022-01-02 Vandana Bernstein hodist 08:56:21 [facility] CBC WITH PLATELET AND DIFFERENTIAL 2022-01-02 Vandana Bernsteinist 05:47:00 [facility] COMPREHENSIVE METABOLIC PANEL 2022-01-02 Vandana Bernstein Me thodist 05:47:00 [facility] LIPASE LEVEL 2022-01-02 Vandana Bernsteinist 05:47:00 [facility] PROTHROMBIN TIME WITH INR 2022-01-02 Vandana Bernstein Method ist 05:47:00 [facility] PARTIAL THROMBOPLASTIN TIME (PTT) 2022-01-02 Vandana Bernstein 05:47:00 [facility] ESTIMATED GFR 2022-01-02 Vandana Bernsteinist 05:47:00 [facility] SMEAR REVIEW 2022-01-02 Vandana Bernsteinist 05:47:00 [facility] CBC WITH PLATELET AND DIFFERENTIAL 2021-12-18 Leah Sandoval Baptism 10:19:00 [facility] PROTHROMBIN TIME WITH INR 2021-12-18 Jeremy Sandoval Method ist 10:19:00 [facility] BASIC METABOLIC PANEL 2021-12-18 Jeremy Sandoval Baptism 10:19:00 [facility] HEPATIC FUNCTION PANEL 2021-12-18 Dinakar, Jereym Baptism 10:19:00 [facility] PHOSPHORUS LEVEL 2021-12-18 Dinakar, Jeremy Baptism 10:19:00 [facility] MAGNESIUM LEVEL 2021-12-18 Dinakar, Jeremy Baptism 10:19:00 [facility] ESTIMATED GFR 2021-12-18 Dinakar, Jeremy Baptism 10:19:00 [facility] SMEAR REVIEW 2021-12-18 Dinakar, Jeremy Baptism 10:19:00 [facility] CBC WITH PLATELET AND DIFFERENTIAL 2021-12-17 Dinakar, Leah stuart Baptism 11:45:00 [facility] PROTHROMBIN TIME WITH INR 2021-12-17 Dinakar, Jeremy Method ist 11:45:00 [facility] BASIC METABOLIC PANEL 2021-12-17 Dinakar, Jeremy Baptism 11:45:00 [facility] HEPATIC FUNCTION PANEL 2021-12-17 Dinakar, Jeremy Baptism 11:45:00 [facility] PHOSPHORUS LEVEL 2021-12-17 Dinakar, Jeremy Baptism 11:45:00 [facility] MAGNESIUM LEVEL 2021-12-17 Dinakar, Jeremy Baptism 11:45:00 [facility] ESTIMATED GFR 2021-12-17 Dinakar, Jeremy Baptism 11:45:00 [facility] SMEAR REVIEW 2021-12-17 Dinakar, Jeremy Baptism 11:45:00 [facility] NM GI BLEEDING STUDY 2021-12-16 Elias Guzmanist 20:06:11 [facility] MRI CHOLANGIOGRAM WO CONTRAST 2021-12-16 Elias Guzman thodist 13:57:00 [facility] MRI ABDOMEN W WO CONTRAST 2021-12-16 Elias Guzman Method ist 13:56:00 Hospital CBC WITH PLATELET AND DIFFERENTIAL 2021-12-16 Dinakar, Leah stuart Baptism 11:26:00 [facility] PROTHROMBIN TIME WITH INR 2021-12-16 Dinakar, Jeremy Method ist 11:26:00 [facility] BASIC METABOLIC PANEL 2021-12-16 Dinakar, Jeremy Baptism 11:26:00 [facility] HEPATIC FUNCTION PANEL 2021-12-16 Dinakar, Jeremy Baptism 11:26:00 [facility] PHOSPHORUS LEVEL 2021-12-16 Dinakar, Jeremy Baptism 11:26:00 [facility] MAGNESIUM LEVEL 2021-12-16 Dinakar, Jeremy Baptism 11:26:00 [facility] ESTIMATED GFR 2021-12-16 Dinakar, Jeremy Baptism 11:26:00 [facility] SMEAR REVIEW 2021-12-16 Michelakar, Jeremy Baptism 11:26:00 [facility] BASIC METABOLIC PANEL 2021-12-15 Ward, Bebeto Baptism 12:30:00 Hospital ESTIMATED GFR 2021-12-15 Ward, Bebeto Baptism 12:30:00 Hospital HEPATIC FUNCTION PANEL 2021-12-15 WardBebeto graves Methodis t 12:30:00 Hospital MAGNESIUM LEVEL 2021-12-15 Ward Bebeto Baptism 12:30:00 Hospital PHOSPHORUS LEVEL 2021-12-15 Ward Bebeto Baptism 12:30:00 Hospital CBC HEMOGRAM 2021-12-15 WardBebeto sanches Baptism 12:30:00 Hospital PROTHROMBIN TIME WITH INR 2021-12-15 Ward, Bebeto Metho dist 12:30:00 Hospital C-REACTIVE PROTEIN 2021-12-15 WardBebeto graves Baptism 12:30:00 Hospital SMEAR REVIEW 2021-12-15 Ward, Bebeto Baptism 12:30:00 Hospital CBC WITH PLATELET AND DIFFERENTIAL 2021-12-15 Leah Sandoval Baptism 11:14:00 [facility] PROTHROMBIN TIME WITH INR 2021-12-15 Jeremy Sandoval Method ist 11:14:00 [facility] BASIC METABOLIC PANEL 2021-12-15 Dinakar, Jeremy Baptism 11:14:00 [facility] HEPATIC FUNCTION PANEL 2021-12-15 Dinakar, Jeremy Baptism 11:14:00 [facility] PHOSPHORUS LEVEL 2021-12-15 Dinakar, Jeremy Baptism 11:14:00 [facility] MAGNESIUM LEVEL 2021-12-15 Dinakar, Jeremy Baptism 11:14:00 [facility] C-REACTIVE PROTEIN 2021-12-15 WardBebeto Baptism 11:14:00 Hospital ESTIMATED GFR 2021-12-15 DinakarJeremy Baptism 11:14:00 [facility] CBC WITH PLATELET AND DIFFERENTIAL 2021-12-14 Dinakar, Leah stuart Baptism 10:39:00 [facility] PROTHROMBIN TIME WITH INR 2021-12-14 Dinhomar, Jeremy Method ist 10:39:00 [facility] BASIC METABOLIC PANEL 2021-12-14 Dinakar, Jeremy Baptism 10:39:00 [facility] HEPATIC FUNCTION PANEL 2021-12-14 Dinhomar, Jeremy Baptism 10:39:00 [facility] PHOSPHORUS LEVEL 2021-12-14 Dinakar, Jeremy Baptism 10:39:00 [facility] MAGNESIUM LEVEL 2021-12-14 Dinhomar, Jeremy Baptism 10:39:00 [facility] C-REACTIVE PROTEIN 2021-12-14 WardBebeto Baptism 10:39:00 Hospital FERRITIN LEVEL 2021-12-14 WardBebeto graves Baptism 10:39:00 Hospital FOLATE LEVEL 2021-12-14 WardBebeto graves Baptism 10:39:00 Hospital HAPTOGLOBIN 2021-12-14 WardBebeto Baptism 10:39:00 Hospital VITAMIN B12 LEVEL 2021-12-14 WardBebeto graves Baptism 10:39:00 Hospital TOTAL IRON BINDING CAPACITY 2021-12-14 WardBebeto graves Met hodist 10:39:00 Hospital RETICULOCYTE COUNT 2021-12-14 Ward, Bebeto Baptism 10:39:00 Hospital LDH 2021-12-14 Ward, Bebeto Baptism 10:39:00 Hospital ESTIMATED GFR 2021-12-14 Dinar, Jeremy Baptism 10:39:00 [facility] [facility] NEED PHYS SKILL,DX OR RX 2021-12-13 Jhonathan, Conysi cristobal Baptism 21:45:17 Hospital CBC WITH PLATELET AND DIFFERENTIAL 2021-12-13 DinarLeah Baptism 07:40:00 [facility] PROTHROMBIN TIME WITH INR 2021-12-13 Dinar, Jeremy Method ist 07:40:00 [facility] BASIC METABOLIC PANEL 2021-12-13 Dinakar, Jeremy Baptism 07:40:00 [facility] HEPATIC FUNCTION PANEL 2021-12-13 Jeremy Sandoval 07:40:00 [facility] PHOSPHORUS LEVEL 2021-12-13 Jeremy Sandoval 07:40:00 [facility] MAGNESIUM LEVEL 2021-12-13 Jeremy Sandoval 07:40:00 [facility] HEMOGLOBIN A1C 2021-12-13 Jeremy Sandoval 07:40:00 [facility] C-REACTIVE PROTEIN 2021-12-13 Bebeto Ward 07:40:00 Hospital SEDIMENTATION RATE 2021-12-13 Bebeto Ward 07:40:00 Hospital LDH 2021-12-13 Bebeto Ward 07:40:00 Hospital LIPASE LEVEL 2021-12-13 Bebeto Ward 07:40:00 Hospital GGT 2021-12-13 Bebeto Ward 07:40:00 Hospital ESTIMATED GFR 2021-12-13 Jeremy Sandoval 07:40:00 [facility] SMEAR REVIEW 2021-12-13 Jeremy Sandoval 07:40:00 [facility] BLOOD CULTURE, AEROBIC & ANAEROBIC 2021-12-12 Leah Sandoval 12:00:00 [facility] BLOOD CULTURE, AEROBIC & ANAEROBIC 2021-12-12 Leah Sandoval 11:42:00 [facility] ZZCOVID-19 ANTI-SPIKE IGG ANTIBODY 2021-12-12 Leah Sandoval TITER 11:40:00 [facility] TROPONIN T 2021-12-12 RehrerStevo 11:40:00 [facility] CBC WITH PLATELET AND DIFFERENTIAL 2021-12-12 Leah Sandoval 11:40:00 [facility] ZZCOVID-19 SEROLOGY PATIENT 2021-12-12 Jeremy Sandoval SURVEILLANCE 11:40:00 [facility] SMEAR REVIEW 2021-12-12 Jeremy Sandoval 11:40:00 [facility] TROPONIN T 2021-12-12 RehreStevo potts 09:10:00 [facility] LACTIC ACID LEVEL, SEPSIS - NOW 2021-12-12 Rehrer, Stevo Kyle AND REPEAT 2X EVERY 3 HOURS 09:10:00 [facility] ital CT ABDOMEN PELVIS W CONTRAST 2021-12-12 Rehrer, Stevo ramosist 06:58:00 [facility] ECG ED PRELIMINARY INTERPRETATION 2021-12-12 RehrerStevoist 05:33:45 [facility] URINE CULTURE 2021-12-12 Rehrer, Stevo Rileyist 04:28:00 [facility] URINALYSIS SCREEN AND MICROSCOPY, 2021-12-12 Rehrer, Stevo Kyle WITH REFLEX TO CULTURE 03:45:00 [facility] COVID-19 QUALITATIVE RT-PCR 2021-12-12 RehrerStevo Meth odist 03:30:00 [facility] PROTHROMBIN TIME WITH INR 2021-12-12 RehrerStevo Method ist 03:30:00 [facility] PARTIAL THROMBOPLASTIN TIME (PTT) 2021-12-12 RehrerStevo 03:30:00 [facility] LIPASE LEVEL 2021-12-12 RehrerStevo 03:30:00 [facility] TROPONIN T 2021-12-12 RehrerStevo 03:30:00 [facility] B NATRIURETIC PEPTIDE 2021-12-12 Rehrer, Stevo Kyle 03:30:00 [facility] TYPE AND SCREEN 2021-12-12 RehrerStevo 03:30:00 [facility] LACTIC ACID LEVEL, SEPSIS - NOW 2021-12-12 Tamie Silveira AND REPEAT 2X EVERY 3 HOURS 03:30:00 [facility] ital ECG 12-LEAD 2021-12-12 RehrerStevo 03:08:12 [facility] CBC WITH PLATELET AND DIFFERENTIAL 2021-12-11 Tamie Silveira 22:48:00 Hospital COMPREHENSIVE METABOLIC PANEL 2021-12-11 Tamie Silveira thodist 22:48:00 Hospital LIPASE LEVEL 2021-12-11 Tamie Silveira 22:48:00 Hospital LACTIC ACID LEVEL, SEPSIS - NOW 2021-12-11 Tamie Silveira AND REPEAT 2X EVERY 3 HOURS 22:48:00 Hosp ital ESTIMATED GFR 2021-12-11 Tamie Silveira 22:48:00 Hospital SMEAR REVIEW 2021-12-11 Tamie Silveira Baptism 22:48:00 Hospital CBC WITH PLATELET AND DIFFERENTIAL 2021-12-03 Dinakar, Leah stuart Baptism 11:14:00 [facility] PROTHROMBIN TIME WITH INR 2021-12-03 Dinakar, Jeremy Method ist 11:14:00 [facility] BASIC METABOLIC PANEL 2021-12-03 Dinakar, Jeremy Baptism 11:14:00 [facility] HEPATIC FUNCTION PANEL 2021-12-03 Dinakar, Jeremy Baptism 11:14:00 [facility] PHOSPHORUS LEVEL 2021-12-03 Dinakar, Jeremy Baptism 11:14:00 [facility] MAGNESIUM LEVEL 2021-12-03 Dinakar, Jeremy Baptism 11:14:00 [facility] ESTIMATED GFR 2021-12-03 Dinakar, Jeremy Baptism 11:14:00 [facility] SMEAR REVIEW 2021-12-03 Dinakar, Jeremy Baptism 11:14:00 [facility] US DUPLEX VENOUS UPPER EXTREMITY 2021-12-02 Nakia Cruz Baptism LEFT 18:10:00 Hospital CBC WITH PLATELET AND DIFFERENTIAL 2021-12-02 Dinakar, Leah stuart Baptism 09:59:00 [facility] PROTHROMBIN TIME WITH INR 2021-12-02 Dinakar, Jeremy Method ist 09:59:00 [facility] BASIC METABOLIC PANEL 2021-12-02 Dinakar, Jeremy Baptism 09:59:00 [facility] HEPATIC FUNCTION PANEL 2021-12-02 Dinakar, Jeremy Baptism 09:59:00 [facility] PHOSPHORUS LEVEL 2021-12-02 Dinakar, Jeremy Baptism 09:59:00 [facility] MAGNESIUM LEVEL 2021-12-02 Dinakar, Jeremy Baptism 09:59:00 [facility] ESTIMATED GFR 2021-12-02 Dinakar, Jeremy Baptism 09:59:00 [facility] CBC WITH PLATELET AND DIFFERENTIAL 2021-12-01 Dinakar, Leah stuart Baptism 10:22:00 [facility] PROTHROMBIN TIME WITH INR 2021-12-01 Dinakar, Jeremy Method ist 10:22:00 [facility] BASIC METABOLIC PANEL 2021-12-01 Dinakar, Jeremy Baptism 10:22:00 [facility] HEPATIC FUNCTION PANEL 2021-12-01 Dinakar, Jeremy Baptism 10:22:00 [facility] PHOSPHORUS LEVEL 2021-12-01 Dinakar, Jeremy Baptism 10:22:00 [facility] MAGNESIUM LEVEL 2021-12-01 Dinakar, Jeremy Baptism 10:22:00 [facility] ESTIMATED GFR 2021-12-01 Dinakar, Jeremy Baptism 10:22:00 [facility] SMEAR REVIEW 2021-12-01 DinakarJeremy Baptism 10:22:00 [facility] ESOPHAGOGASTRODUODENOSCOPY (EGD) 2021-11-30 Elias Guzman 19:49:00 Hospital CBC WITH PLATELET AND DIFFERENTIAL 2021-11-30 Dinakar, Leah stuart Baptism 10:53:00 [facility] PROTHROMBIN TIME WITH INR 2021-11-30 Dinakar, Jeremy Method ist 10:53:00 [facility] BASIC METABOLIC PANEL 2021-11-30 Dinakar, Jeremy Baptism 10:53:00 [facility] HEPATIC FUNCTION PANEL 2021-11-30 Dinakar, Jeremy Baptism 10:53:00 [facility] PHOSPHORUS LEVEL 2021-11-30 Dinakar, Jeremy Baptism 10:53:00 [facility] MAGNESIUM LEVEL 2021-11-30 Dinakar, Jeremy Baptism 10:53:00 [facility] ESTIMATED GFR 2021-11-30 Dinakar, Jeremy Baptism 10:53:00 [facility] SMEAR REVIEW 2021-11-30 Dinakar, Jeremy Baptism 10:53:00 [facility] CBC WITH PLATELET AND DIFFERENTIAL 2021-11-29 Dinakar, Leah stuart Baptism 10:50:00 [facility] PROTHROMBIN TIME WITH INR 2021-11-29 Dinakar, Jeremy Method ist 10:50:00 [facility] BASIC METABOLIC PANEL 2021-11-29 Dinakar, Jeremy Baptism 10:50:00 [facility] HEPATIC FUNCTION PANEL 2021-11-29 Dinakar, Jeremy Baptism 10:50:00 [facility] PHOSPHORUS LEVEL 2021-11-29 Dinakar, Jeremy Baptism 10:50:00 [facility] MAGNESIUM LEVEL 2021-11-29 Dinakar, Jeremy Baptism 10:50:00 [facility] ESTIMATED GFR 2021-11-29 Dinakar, Jeremy Baptism 10:50:00 [facility] SMEAR REVIEW 2021-11-29 Dinakar, Jeremy Baptism 10:50:00 [facility] CBC WITH PLATELET AND DIFFERENTIAL 2021-11-28 Dinakar, Leah stuart Baptism 09:28:00 [facility] PROTHROMBIN TIME WITH INR 2021-11-28 Dinakar, Jeremy Method ist 09:28:00 [facility] BASIC METABOLIC PANEL 2021-11-28 Dinakar, Jeremy Baptism 09:28:00 [facility] HEPATIC FUNCTION PANEL 2021-11-28 Dinakar, Jeremy Baptism 09:28:00 [facility] PHOSPHORUS LEVEL 2021-11-28 Dinakar, Jeremy Baptism 09:28:00 [facility] MAGNESIUM LEVEL 2021-11-28 Dinakar, Jeremy Baptism 09:28:00 [facility] ESTIMATED GFR 2021-11-28 Dinakar, Jeremy Baptism 09:28:00 [facility] OCCULT BLOOD, STOOL 2021-11-27 ShellieeJefferson Baptism 23:26:00 [facility] XR ABDOMEN 1 VW PORTABLE 2021-11-27 Kienast, Myra Meth odist 20:25:00 [facility] CBC WITH PLATELET AND DIFFERENTIAL 2021-11-27 Dinakar, Leah stuart Baptism 09:07:00 [facility] PROTHROMBIN TIME WITH INR 2021-11-27 Dinakar, Jeremy Method ist 09:07:00 [facility] BASIC METABOLIC PANEL 2021-11-27 Dinakar, Jeremy Baptism 09:07:00 [facility] HEPATIC FUNCTION PANEL 2021-11-27 Dinakar, Jeremy Baptism 09:07:00 [facility] PHOSPHORUS LEVEL 2021-11-27 Dinakar, Jeremy Baptism 09:07:00 [facility] MAGNESIUM LEVEL 2021-11-27 Dinakar, Jeremy Baptism 09:07:00 [facility] HEMOGLOBIN A1C 2021-11-27 Dinakar, Jeremy Baptism 09:07:00 [facility] ESTIMATED GFR 2021-11-27 Dinakar, Jeremy Baptism 09:07:00 [facility] SMEAR REVIEW 2021-11-27 Dinakar, Jeremy Baptism 09:07:00 [facility] BLOOD CULTURE, AEROBIC & ANAEROBIC 2021-11-27 Leah Sandoval Baptism 04:03:00 [facility]- ANTI-SPIKE IGG ANTIBODY 2021-11-27 Leah Sandoval Baptism TITER 04:03:00 [facility] ZZCOVID-19 SEROLOGY PATIENT 2021-11-27 JaimeJosegenevieve Tanner odnohelia SURVEILLANCE 04:03:00 [facility] CTA ABD/PEL FOR BLEEDING 2021-11-27 [facility] Metho dist 01:38:34 Hospital HEMOGLOBIN & HEMATOCRIT 2021-11-27 [facility] Method ist 01:34:00 Hospital SMEAR REVIEW 2021-11-27 [facility] 01:34:00 Hospital RESPIRATORY PATHOGEN PANEL WITH 2021-11-27 [facility] [place] [place] COVID-19 RT-PCR 00:58:00 Hospital TYPE AND SCREEN 2021-11-27 [facility] 00:30:00 Hospital PROTHROMBIN TIME WITH INR 2021-11-27 [facility] odist 00:30:00 Hospital AMMONIA LEVEL 2021-11-27 [facility] 00:30:00 Hospital ECG 12-LEAD 2021-11-27 Jefferson Skeltonist 00:29:32 [facility] ECG ED PRELIMINARY INTERPRETATION 2021-11-27 Jefferson Skelton Baptism 00:04:12 Hospital CBC WITH PLATELET AND DIFFERENTIAL 2021-11-26 Jefferson Skelton 21:32:00 Hospital COMPREHENSIVE METABOLIC PANEL 2021-11-26 Jefferson Skelton 21:32:00 Hospital LIPASE LEVEL 2021-11-26 [facility] 21:32:00 Hospital HCG QUALITATIVE, SERUM SCREEN 2021-11-26 [facility] 21:32:00 Hospital ESTIMATED GFR 2021-11-26, Pasquale Baptism 21:32:00 [facility] SMEAR REVIEW 2021-11-26, Pasquale Baptism 21:32:00 [facility] CBC WITH PLATELET AND DIFFERENTIAL 2021-10-26 Nakia Cruz 11:26:00 Hospital PROTHROMBIN TIME WITH INR 2021-10-26 Nakia Cruz Method ist 11:26:00 Hospital BASIC METABOLIC PANEL 2021-10-26 Anand Arora Baptism 11:26:00 [facility] ESTIMATED GFR 2021-10-26 MaiteAnand Baptism 11:26:00 [facility] SMEAR REVIEW 2021-10-26 Nakia Cruzist 11:26:00 Hospital CBC WITH PLATELET AND DIFFERENTIAL 2021-10-25 Nakia Cruz Baptism 09:30:00 Hospital PROTHROMBIN TIME WITH INR 2021-10-25 Nakia Cruz Method ist 09:30:00 Hospital COMPREHENSIVE METABOLIC PANEL 2021-10-25 Nakia Cruz thodist 09:30:00 Hospital ESTIMATED GFR 2021-10-25 Nakia Cruzist 09:30:00 Hospital MAGNESIUM LEVEL 2021-10-25 Nakia Cruz Baptism 09:30:00 Hospital PHOSPHORUS LEVEL 2021-10-25 Nakia Cruzist 09:30:00 Hospital BILIRUBIN DIRECT 2021-10-25 Nakia Cruz Baptism 09:30:00 Hospital SMEAR REVIEW 2021-10-25 Nakia Cruz 09:30:00 Hospital CBC WITH PLATELET AND DIFFERENTIAL 2021-10-24 Nakia Cruz 09:17:00 Hospital PROTHROMBIN TIME WITH INR 2021-10-24 Nakia Cruz ist 09:17:00 Hospital COMPREHENSIVE METABOLIC PANEL 2021-10-24 Nakia Cruz thodist 09:17:00 Hospital PHOSPHORUS LEVEL 2021-10-24 Nakia Cruz Baptism 09:17:00 Hospital MAGNESIUM LEVEL 2021-10-24 Nakia Cruz Baptism 09:17:00 Hospital ESTIMATED GFR 2021-10-24 Nakia Cruz Baptism 09:17:00 Hospital SMEAR REVIEW 2021-10-24 Nakia Cruzist 09:17:00 Hospital ESOPHAGOGASTRODUODENOSCOPY (EGD) 2021-10-23 Elias Guzmanist 17:25:00 Hospital CBC WITH PLATELET AND DIFFERENTIAL 2021-10-23 Nakia Cruzist 11:38:00 Hospital PROTHROMBIN TIME WITH INR 2021-10-23 Nakia Cruz Method ist 11:38:00 Hospital COMPREHENSIVE METABOLIC PANEL 2021-10-23 Nakia Cruz thodist 11:38:00 Hospital PHOSPHORUS LEVEL 2021-10-23 Nakia Cruz Baptism 11:38:00 Hospital MAGNESIUM LEVEL 2021-10-23 Nakia Cruz Baptism 11:38:00 Hospital ESTIMATED GFR 2021-10-23 Nakia Cruz Baptism 11:38:00 Hospital SMEAR REVIEW 2021-10-23 Nakia Cruz Baptism 11:38:00 Hospital TTE COMPLETE, W CONTRAST, W 2021-10-22 Myra Garcia DOPPLER ([id number]) 14:21:00 [facility] CBC WITH PLATELET AND DIFFERENTIAL 2021-10-22 Nakia Cruzist 10:31:00 Hospital PROTHROMBIN TIME WITH INR 2021-10-22 Nakia Cruz Method ist 10:31:00 [facility] COMPREHENSIVE METABOLIC PANEL 2021-10-22 Nakia Cruz thodist 10:31:00 Hospital PHOSPHORUS LEVEL 2021-10-22 Nakia Cruz Baptism 10:31:00 Hospital MAGNESIUM LEVEL 2021-10-22 Nakia Cruz Baptism 10:31:00 [facility] THYROID STIMULATING HORMONE 2021-10-22 Nakia Cruz odist 10:31:00 [facility] T4 2021-10-22 Nakia Cruz Baptism 10:31:00 [facility] VITAMIN D 25 HYDROXY LEVEL 2021-10-22 Nakia Cruzo dist 10:31:00 Hospital ALPHA FETOPROTEIN 2021-10-22 Myra Garciaist 10:31:00 [facility] ESTIMATED GFR 2021-10-22 Nakia Cruz Baptism 10:31:00 Hospital SMEAR REVIEW 2021-10-22 Nakia Cruz 10:31:00 Hospital COVID-19 QUALITATIVE RT-PCR 2021-10-22 Nakia Cruz Meth odist 00:29:00 Hospital URINE CULTURE 2021-10-21 Nakia Cruz 22:46:00 Hospital URINALYSIS SCREEN AND MICROSCOPY, 2021-10-21 Nakia Cruz WITH REFLEX TO CULTURE 22:46:00 Hospital XR ABDOMEN 1 VW PORTABLE 2021-10-21 Jose Myra Tanner odist 22:35:[address] [facility] [address] ABDOMEN PELVIS WO CONTRAST 2021-10-21 Nakia Cruz thodist 20:20:30 [facility] ZCOVID-19 ANTI-SPIKE IGG ANTIBODY 2021-10-21 Nakia Cruz TITER 16:31:00 Hospital CBC WITH PLATELET AND DIFFERENTIAL 2021-10-21 Nakia Cruz 16:31:00 [facility] COMPREHENSIVE METABOLIC PANEL 2021-10-21 Nakia Cruz thodist 16:31:00 Hospital PROTHROMBIN TIME WITH INR 2021-10-21 Nakia Cruz ist 16:31:00 Hospital MAGNESIUM LEVEL 2021-10-21 Nakia Cruzist 16:31:00 Hospital PHOSPHORUS LEVEL 2021-10-21 Nakia Cruz 16:31:00 Hospital LIPASE LEVEL 2021-10-21 Nakia Cruz 16:31:00 [place] [id number] SEROLOGY PATIENT 2021-10-21 Nakia Cruz SURVEILLANCE 16:31:00 Hospital ESTIMATED GFR 2021-10-21 Nakia Cruz 16:31:00 Hospital XR KNEE 3 VW RIGHT 2021-09-29 Charles, K [facility] of 04:06:00 [facility] NOTICE OF PRIVACY PRACTICES 2021-09-29 Doctor Ceciliasslis, [facility] of 02:46:43 [place] [facility] CONSENT/REFUSAL FOR DIAGNOSIS AND 2021-09-29 Doctor Buck olmedo [facility] 02:46:16 [place] [facility] XR KNEE 3 VW LEFT 2021-04-02 [facility] o f 20:10:39 F [facility] CONSENT/REFUSAL FOR DIAGNOSIS AND 2021-04-02 Doctor Buck olmedo [facility] 17:59:31 [place] [facility] ASSIGNMENT OF BENEFITS 2021-03-10 Doctor [facility]asslis, [facility] 20:29:46 [place] [facility] HC COMPLETE BLD COUNT W/AUTO DIFF 2021-02-20 Anabella Suresh 10:53:00 [facility] BASIC METABOLIC PANEL 2021-02-20 Anabella Suresh 10:53:00 [facility] HEPATIC FUNCTION PANEL 2021-02-20 Anabella Suresh 10:53:00 [facility] MAGNESIUM LEVEL 2021-02-20 Anabella Suresh 10:53:00 [facility] PHOSPHORUS LEVEL 2021-02-20 Anabella Suresh 10:53:00 [facility] PROTHROMBIN TIME WITH INR 2021-02-20 Rosemary Suresh ist 10:53:00 [facility] ESTIMATED GFR 2021-02-20 Anabella Suresh 10:53:00 [facility] SMEAR REVIEW 2021-02-20 Anabella Suresh 10:53:00 [facility] MRI CHOLANGIOGRAM WO CONTRAST 2021-02-20 Jeremy Sandoval [place] thodist 00:15:00 [facility] [place] NEED PHYS SKILL,DX OR RX 2021-02-19 Latanya Ring lda Baptism 16:10:21 Hospital HC COMPLETE BLD COUNT W/AUTO DIFF 2021-02-19 Anabella Suresh 11:00:00 [facility] BASIC METABOLIC PANEL 2021-02-19 Anabella Suresh 11:00:00 [facility] HEPATIC FUNCTION PANEL 2021-02-19 Anaeblla Suresh 11:00:00 [facility] MAGNESIUM LEVEL 2021-02-19 Anabella Suresh 11:00:00 [facility] PHOSPHORUS LEVEL 2021-02-19 Anabella Suresh 11:00:00 [facility] PROTHROMBIN TIME WITH INR 2021-02-19 Rosemary Suresh ist 11:00:00 [facility] ESTIMATED GFR 2021-02-19 Anabella Suresh 11:00:00 [facility] SMEAR REVIEW 2021-02-19 Anabella Suresh 11:00:[address] [facility] [address] ABDOMEN PELVIS WO CONTRAST 2021-02-19 Me Demetrice thodist 03:25:00 [facility] URINE CULTURE 2021-02-19 Anabella Suresh 02:27:00 [facility] URINALYSIS SCREEN AND MICROSCOPY, 2021-02-19 Anabella Suresh WITH REFLEX TO CULTURE 02:27:00 [facility] BLOOD CULTURE, AEROBIC & ANAEROBIC 2021-02-18 Anabella Suresh 23:25:00 [facility] TYPE AND SCREEN 2021-02-18 Dre Mayer 23:25:00 [facility] COVID-19 ANTI-SPIKE IGG ANTIBODY 2021-02-18 Anabella Suresh TITER 22:57:00 [facility] COVID-19 SEROLOGY PATIENT 2021-02-18 Rosemary Suresh SURVEILLANCE 22:57:00 [facility] HC COMPLETE BLD COUNT W/AUTO DIFF 2021-02-18 Anabella Suresh 22:57:00 [facility] PROTHROMBIN TIME WITH INR 2021-02-18 Rosemary Suresh 22:57:00 [facility] COMPREHENSIVE METABOLIC PANEL 2021-02-18 Mayda Aleman [place]ist 22:57:00 [facility] LACTIC ACID LEVEL 2021-02-18 Anabella Suresh 22:57:00 [facility] MAGNESIUM LEVEL 2021-02-18 Anabella Suresh 22:57:00 [facility] PHOSPHORUS LEVEL 2021-02-18 Anabella Suresh 22:57:00 [facility] LIPASE LEVEL 2021-02-18 Anabella Suresh 22:57:00 [facility] ESTIMATED GFR 2021-02-18 Anabella Suresh 22:57:00 [facility] SMEAR REVIEW 2021-02-18 Anabella Suresh 22:57:00 [facility] PHOSPHORUS 2020-10-03 Brenda Teixeira [place] of 08:52:00 [facility] MAGNESIUM 2020-10-03 Brenda Teixeira [place] of 08:52:00 [facility] COMP. METABOLIC PANEL ([id number]) 2020-10-03 Brenda Teixeira Un iversity of 08:52:00 [facility] CBC WITH DIFF 2020-10-03 Brenda Teixeira [place] of 08:52:00 [facility] COMP. METABOLIC PANEL ([id number]) 2020-10-02 Brenda Teixeira Un iversity of 08:39:00 [facility] CBC WITH DIFF 2020-10-02 [facility]00 [facility] US DUPLEX VENOUS ARM LEFT - BY 2020-10-01 Brenda Teixeira niversity of VASCULAR LAB 16:22:58 [facility] COMP. METABOLIC PANEL ([id number]) 2020-10-01 Tomasa Rucker iversity of 07:45:00 [facility] CBC WITH DIFF 2020-10-01 Tomasa Rucker of 07:45:00 [facility] TROPONIN I 2020-09-30 Marco Levy [place] of 10:56:00 [facility] COMP. METABOLIC PANEL ([id number]) 2020-09-30 Shaina Pinto iversity of 10:56:00 [facility] CBC WITH DIFF 2020-09-30 Shaina Pinto [place] of 10:56:00 [facility] N-TERMINAL PRO-BNP 2020-09-30 [facility] 08:05[facility]00 [facility] OCCULT (GUAIAC) BLOOD 2020-09-30 Shaina Pinto [place] of 02:10:00 [facility] FECAL LEUKOCYTES 2020-09-30 Alisha [facility] of 02:10:00 [facility] CLOSTRIDIUM DIFFICILE TOXIN 2020-09-30 Alisha [facility] ersity of 02:10:00 [facility] FECAL PATHOGENS BY PCR 2020-09-30 Shaina Pinto [facility] y of 02:10:00 [facility] POCT GLUCOSE (AUTOMATED) 2020-09-[address] [facility] sity of 00:35:00 [facility] BASIC METABOLIC PANEL (NA, K, CL, 2020-09-29 Shaina Pinto [place] of CO2, GLUCOSE, BUN, CREATININE, CA) 21:11:00 [facility] HEMOGLOBIN 2020-09-29 Tomasa Rucker of 21:11:00 [facility] TRANSTHORACIC ECHO (TTE) COMPLETE 2020-09-29 Marco Levy [place] of 16:03:00 [facility] HB ECG ROUTINE & RHYTHM STRIP 2020-09-29 Shaina Pinto iversity of 11:18:58 [facility] OSMOLALITY URINE 2020-09-29 Shaina Pinto [place] of 08:56:00 [facility] URINE CULTURE 2020-09-29 Alisha [facility] of 08:56:00 [facility] SODIUM, URINE RANDOM 2020-09-29 Alisha, [facility] of 08:56:00 [facility] PROTEIN CREAT RATIO URINE RANDOM 2020-09-29 Alisha, [facility] of 08:56:00 [facility] BLOOD CULTURE SCREEN 2020-09-29 Alisha [facility] of 08:32:00 [facility] LACTIC ACID WHOLE BLOOD 2020-09-29 Alisha [facility] ty of 08:32:00 [facility] VITAMIN B12, LEVEL 2020-09-29 Alisha, [facility] of 08:31:00 [facility] C-REACTIVE PROTEIN 2020-09-29 Alisha [facility] of 08:31:00 [facility] IRON PANEL 2020-09-29 Alisha [facility] of 08:31:00 [facility] SEDIMENTATION RATE 2020-09-29 Alisha [facility] of 08:31:00 [facility] DIFF CONSULT INTERPRETATION 2020-09-29 Alisha [facility] ersity of 08:31:00 [facility] CBC WITH DIFF 2020-09-29 Alisha [facility] of 08:31:00 [facility] PROTHROMBIN TIME / INR 2020-09-29 Alisha [facility] y of 08:31:00 [facility] N-TERMINAL PRO-BNP 2020-09-29 Alisha [facility] of 08:31:00 [facility] VITAMIN D, 25-OH 2020-09-29 Alisha [facility] of 08:31:00 [facility] PROCALCITONIN 2020-09-29 Alisha, [facility] of 08:31:00 [facility] COVID-19 (ID NOW RAPID TESTING) 2020-09-29 Rene Evans [employer] of 05:10:00 [facility] LAB ONLY COVID INTERPRETATION 2020-09-29 Rene Evans [facility] of 05:10:00 [facility] CT ABDOMEN PELVIS W CONTRAST 2020-09-29 Rene Evans Un iversity of 04:56:31 [facility] URINALYSIS 2020-09-29 [place] of 04:19:00 [facility] PHOSPHORUS 2020-09-29 Shaina Pinto [place] of 03:54:00 [facility] CREATINE KINASE 2020-09-29 Shaina Pinto [place] of 03:54:00 [facility] URIC ACID 2020-09-29 Shaina Pinto [place] of 03:54:00 [facility] LIPASE 2020-09-29 Rene Evans [place] of 03:54:00 [facility] Branch MAGNESIUM 2020-09-29 Alisha [facility] of 03:54:00 [facility] FERRITIN SERUM 2020-09-29 Alisha [facility] of 03:54:00 [facility] TROPONIN I 2020-09-29 Cam [facility] of 03:54:00 [facility] THYROID STIMULATING HORMONE 2020-09-29 Shaina Pinto [facility] ersity of 03:54:00 [facility] COMP. METABOLIC PANEL (94817) 2020-09-29 Rene Evans [facility] of 03:54:00 [facility] LIPID PANEL ([id number])(TOTAL 2020-09-29 AlishaShaina Univ sity of CHOLESTEROL, TRIGLYCERIDES, HDL) 03:54:00 [facility] CBC WITH DIFF 2020-09-29 Rene Evans [place] of 03:54:00 [facility] GLYCOSYLATED HEMOGLOBIN (A1C) 2020-09-29 Shaina Pinto [facility] of 03:54:00 [facility] N-TERMINAL PRO-BNP 2020-09-29 Shaina Pinto [place] of 03:54:00 [facility] CONSENT/REFUSAL FOR DIAGNOSIS AND 2020-09-29 Doctor Buck olmedo, [facility] 03:18:51 [place] [facility] NOTICE OF PRIVACY PRACTICES 2020-09-29 Doctor Unassigned, U niversity of 03:18:30 [place] [facility] CT ABDOMEN PELVIS W CONTRAST 2019-08-11 Corby Ca Uni versity of 14:50:46 [facility] COMP. METABOLIC PANEL (85323) 2019-08-11 Shaina Pinto [facility] ivers[facility] of 08:00:00 [facility] CBC WITH DIFFERENTIAL 2019-08-11 Shaina Pinto of 08:00:00 [facility] CBC WITH DIFFERENTIAL 2019-08-11 Shaina Pinto [place] of 08:00:00 [facility] XR SMALL BOWEL SERIES 2019-08-10 Valente Piña of 21:18:47 [facility] XR ABDOMEN 1 VW 2019-08-10 Shaina Pinto [place] of 11:52:39 [facility] PHOSPHORUS 2019-08-10 Alisha, [facility] of 11:11:00 [facility] CREATINE KINASE 2019-08-10 [facility], [facility] 11:11[facility]00 [facility] AMYLASE 2019-08-10 Alisha, [facility] of 11:11:00 [facility] LIPASE 2019-08-10 [facility]isha, [facility] of 11:11:00 [facility] MAGNESIUM 2019-08-10 [facility] 11:11:00 [facility] TEST, SERUM 2019-08-10 Shaina Pinto [place] of 11:11:00 [facility] THYROID STIMULATING HORMONE 2019-08-10 Shaina Pinto [facility] ersity of 11:11:00 [facility] COMP. METABOLIC PANEL (67859) 2019-08-10 Shaina Pinto Un iversity of 11:11:00 [facility] LIPID PANEL (60364)(TOTAL 2019-08-[address] [facility] sity of CHOLESTEROL, TRIGLYCERIDES, HDL) 11:11:00 [facility] SEDIMENTATION RATE 2019-08-10 Shaina Pinto [place] of 11:11:00 [facility] CBC WITH DIFFERENTIAL 2019-08-10 Shaina Pinto [place] of 11:11:00 [facility] GLYCOSYLATED HEMOGLOBIN (A1C) 2019-08-10 Shaina Pinto Un iversity of 11:11:00 [facility] PROTHROMBIN TIME / INR 2019-08-10 Shaina Pinto [facility] of 11:11:00 [facility] CORONAVIRUS COVID-19 TESTING 2019-08-10 Shaina Pinto Uni versity of 09:04:00 [facility] Plan of Care Planned Activity Planned Date Details Comments Source Future Scheduled 2022-03-25 Hepatitis C screening [facility] Test 03:54:02 (procedure) [code = 671589181] Future Scheduled 2022-03-25 BREAST CANCER [facility] Test 03:54:02 SCREENING [code = BREAST CANCER SCREENING] Future Scheduled 2022-03-25 COLONOSCOPY SCREENING [facility] Test 03:54:02 [code = COLONOSCOPY SCREENING] Future Scheduled 2022-03-25 SHINGLES VACCINES (1 Met [facility] Test 03:54:02 of 2) [code = SHINGLES VACCINES (1 of 2)] Future Scheduled 2022-03-25 COVID-19 VACCINE (3 - [facility] Test 03:54:02 Booster for Moderna series) [code = COVID-19 VACCINE (3 - Booster for Moderna series)] Future Scheduled 2022-03-25 HEPATITIS B VACCINES [facility] Test 03:54:02 (1 of 3 - Risk 3-dose series) [code = HEPATITIS B VACCINES (1 of 3 - Risk 3-dose series)] Future Scheduled 2022-03-25 Pneumococcal Vaccine: [facility] Test 03:54:02 Pediatrics (0 to 5 Years) and At-Risk Patients (6 to 64 Years) (2 - PCV) [code = Pneumococcal Vaccine: Pediatrics (0 to 5 Years) and At-Risk Patients (6 to 64 Years) (2 - PCV)] Future Scheduled 2022-03-15 Hepatitis C screening [facility] Test 14:24:37 (procedure) [code = 049290815] Future Scheduled 2022-03-15 Screening for [facility] Test 14:24:37 malignant neoplasm of cervix (procedure) [code = 155126506] Future Scheduled 2022-03-15 BREAST CANCER [facility] Test 14:24:37 SCREENING [code = BREAST CANCER SCREENING] Future Scheduled 2022-03-15 COLONOSCOPY SCREENING [facility] Test 14:24:37 [code = COLONOSCOPY SCREENING] Future Scheduled 2022-03-15 SHINGLES VACCINES (1 Met [facility] Test 14:24:37 of 2) [code = SHINGLES VACCINES (1 of 2)] Future Scheduled 2022-03-15 COVID-19 VACCINE (3 - [facility] Test 14:24:37 Booster for Moderna series) [code = COVID-19 VACCINE (3 - Booster for Moderna series)] Future Scheduled 2022-03-15 HEPATITIS B VACCINES [facility] Test 14:24:37 (1 of 3 - Risk 3-dose series) [code = HEPATITIS B VACCINES (1 of 3 - Risk 3-dose series)] Future Scheduled 2022-03-15 Pneumococcal Vaccine: [facility] Test 14:24:37 Pediatrics (0 to 5 Years) and At-Risk Patients (6 to 64 Years) (2 - PCV) [code = Pneumococcal Vaccine: Pediatrics (0 to 5 Years) and At-Risk Patients (6 to 64 Years) (2 - PCV)] Future Scheduled 2022-01-15 Pneumococcal Vaccine: [facility] Test 07:35:31 Pediatrics (0 to 5 Years) and At-Risk Patients (6 to 64 Years) (1 - PCV) [code = Pneumococcal Vaccine: Pediatrics (0 to 5 Years) and At-Risk Patients (6 to 64 Years) (1 - PCV)] Future Scheduled 2022-01-15 Hepatitis C screening [facility] Test 07:35:31 (procedure) [code = [id number]] Future Scheduled 2022-01-15 Screening for [facility] Test 07:35:31 malignant neoplasm of cervix (procedure) [code = 700282173] Future Scheduled 2022-01-15 BREAST CANCER [facility] Test 07:35:31 SCREENING [code = BREAST CANCER SCREENING] Future Scheduled 2022-01-15 COLONOSCOPY SCREENING [facility] Test 07:35:31 [code = COLONOSCOPY SCREENING] Future Scheduled 2022-01-15 SHINGLES VACCINES (1 Met [facility] Test 07:35:31 of 2) [code = SHINGLES VACCINES (1 of 2)] Future Scheduled 2022-01-15 COVID-19 VACCINE (3 - [facility] Test 07:35:31 Booster for Moderna series) [code = COVID-19 VACCINE (3 - Booster for Moderna series)] Future Scheduled 2022-01-15 HEPATITIS B VACCINES [facility] Test 07:35:31 (1 of 3 - Risk 3-dose series) [code = HEPATITIS B VACCINES (1 of 3 - Risk 3-dose series)] Future Scheduled 2022-01-13 Pneumococcal Vaccine: [facility] Test 14:41:05 Pediatrics (0 to 5 Years) and At-Risk Patients (6 to 64 Years) (1 - PCV) [code = Pneumococcal Vaccine: Pediatrics (0 to 5 Years) and At-Risk Patients (6 to 64 Years) (1 - PCV)] Future Scheduled 2022-01-13 Hepatitis C screening [facility] Test 14:41:05 (procedure) [code = 772950763] Future Scheduled 2022-01-13 Screening for [facility] Test 14:41:05 malignant neoplasm of cervix (procedure) [code = 141591722] Future Scheduled 2022-01-13 BREAST CANCER [facility] Test 14:41:05 SCREENING [code = BREAST CANCER SCREENING] Future Scheduled 2022-01-13 COLONOSCOPY SCREENING [facility] Test 14:41:05 [code = COLONOSCOPY SCREENING] Future Scheduled 2022-01-13 SHINGLES VACCINES (1 Met [facility] Test 14:41:05 of 2) [code = SHINGLES VACCINES (1 of 2)] Future Scheduled 2022-01-13 COVID-19 VACCINE (3 - [facility] Test 14:41:05 Booster for Moderna series) [code = COVID-19 VACCINE (3 - Booster for Moderna series)] Future Scheduled 2022-01-13 HEPATITIS B VACCINES Met [facility] Test 14:41:05 (1 of 3 - Risk 3-dose series) [code = HEPATITIS B VACCINES (1 of 3 - Risk 3-dose series)] Future Scheduled 2021-12-24 Pneumococcal Vaccine: [facility] Test 07:34:42 Pediatrics (0 to 5 Years) and At-Risk Patients (6 to 64 Years) (1 - PCV) [code = Pneumococcal Vaccine: Pediatrics (0 to 5 Years) and At-Risk Patients (6 to 64 Years) (1 - PCV)] Future Scheduled 2021-12-24 Hepatitis C screening [facility] Test 07:34:42 (procedure) [code = 681737834] Future Scheduled 2021-12-24 Screening for [facility] Test 07:34:42 malignant neoplasm of cervix (procedure) [code = 577194737] Future Scheduled 2021-12-24 BREAST CANCER [facility] Test 07:34:42 SCREENING [code = BREAST CANCER SCREENING] Future Scheduled 2021-12-24 COLONOSCOPY SCREENING [facility] Test 07:34:42 [code = COLONOSCOPY SCREENING] Future Scheduled 2021-12-24 SHINGLES VACCINES (1 Met [facility] Test 07:34:42 of 2) [code = SHINGLES VACCINES (1 of 2)] Future Scheduled 2021-12-24 COVID-19 VACCINE (3 - [facility] Test 07:34:42 Booster for Moderna series) [code = COVID-19 VACCINE (3 - Booster for Moderna series)] Future Scheduled 2021-12-24 HEPATITIS B VACCINES Met [facility] Test 07:34:42 (1 of 3 - Risk 3-dose series) [code = HEPATITIS B VACCINES (1 of 3 - Risk 3-dose series)] Future Scheduled 2021-12-09 Pneumococcal Vaccine: [facility] Test 13:56:39 Pediatrics (0 to 5 Years) and At-Risk Patients (6 to 64 Years) (1 - PCV) [code = Pneumococcal Vaccine: Pediatrics (0 to 5 Years) and At-Risk Patients (6 to 64 Years) (1 - PCV)] Future Scheduled 2021-12-09 Hepatitis C screening [facility] Test 13:56:39 (procedure) [code = 306808483] Future Scheduled 2021-12-09 Screening for [facility] Test 13:56:39 malignant neoplasm of cervix (procedure) [code = 283792900] Future Scheduled 2021-12-09 BREAST CANCER [facility] Test 13:56:39 SCREENING [code = BREAST CANCER SCREENING] Future Scheduled 2021-12-09 COLONOSCOPY SCREENING [facility] Test 13:56:39 [code = COLONOSCOPY SCREENING] Future Scheduled 2021-12-09 SHINGLES VACCINES (1 Met [facility] Test 13:56:39 of 2) [code = SHINGLES VACCINES (1 of 2)] Future Scheduled 2021-12-09 COVID-19 VACCINE (3 - [facility] Test 13:56:39 Booster for Moderna series) [code = COVID-19 VACCINE (3 - Booster for Moderna series)] Future Scheduled 2021-12-09 HEPATITIS B VACCINES Met [facility] Test 13:56:39 (1 of 3 - Risk 3-dose series) [code = HEPATITIS B VACCINES (1 of 3 - Risk 3-dose series)] Future Scheduled 2021-12-09 INFLUENZA VACCINE Method [facility] Test 13:56:39 [code = INFLUENZA VACCINE] Encounters Start End Encounter Admission Attending Care Care Encounter Source Date/Time Date/Time Type Type Clinicians Facility Department ID 2022-03-24 Outpatient [place], STLMLC STLMLC [id number] Common 11:16:01 Annalise [facility] 2022-03-23 Outpatient Kattegummul STLMLC STLMLC [id number] Common 15:33:00 a, Madhu [facility] 2021-10-13 Outpatient Kattegummul STLMLC STLMLC [id number] Common 14:25:01 a, Madhu [facility] 2021-05-06 Outpatient Kattegummul STLMLC STLMLC [id number] Common 14:30:56 a, Madhu [facility] 2021-05-06 Outpatient Kattegummul STLMLC STLMLC [id number] Common 14:26:04 a, Madhu 71664 [facility] 2021-05-06 Outpatient Kattegummul STLMLC STLMLC [id number] Common 14:05:28 a, Madhu 24091 [facility] 2021-05-06 Outpatient Kattegummul STLMLC STLMLC [id number] Common 13:37:29 a, Madhu 33522 [facility] 2021-05-06 Outpatient [place], STLMLC STLMLC [id number] Common 13:36:02 Annalise 65580 [facility] 2021-05-06 Outpatient [place], STLMLC STLMLC [id number] Common 11:25:36 Annalise 63334 [facility] 2021-02-09 Emergency [facility] [id number] Univers 02:25:27 ity of [facility] 2022-03-17 2022-03-17 Documentat Dre, 1.2.840.1 [id number] Methodi 00:00:00 00:00:[address] 3.430.2.7 Hospit a .3.012608 l .8 2022-02-25 2022-02-27 Emergency Rehrer Stevo Zackary 1.2.840.1 10 [id number] Methodi 12:36:00 18:45:00 Jeremy Sandoval 62290.1.[address] 3.430.2.7 Hospit a .3.150974 l .8 2022-02-25 2022-02-27 Emergency RehrerStevo 1.2.840.1 10 [id number] Methodi 12:36:00 18:45:00 Jeremy Sandoval 42196.1.[address] 3.430.2.7 Hospit a .3.655816 l .8 2022-02-25 2022-02-25 Travel 1.2.840.1 1.2.284.668 5328 [id number] Methodi 00:00:00 00:00:[address] 3.430.2.7 0.2.7.3.698 Ho spita .3.745874 084.8 l .8 2022-02-25 2022-02-25 Travel 1.2.840.1 1.2.493.911 2936 041649 Methodi 00:00:00 00:00:[address] 3.430.2.7 0.2.7.3.698 Ho spita .3.598285 084.8 l .8 2022-02-15 2022-02-15 Emergency X [facility] ERT [id number] Univers 13:44:00 16:34:00 FLORIAN aburto of [facility] 2022-02-15 2022-02-15 Emergency [facility] 1.2.525.390 [id number] Univers 13:44:00 16:34:00 Florian WHITT 350.1.13.10 [facility] 4.2.7.2.686 [facility] [phone] [address] 2022-01-31 2022-02-04 [facility] 1.2.840.1 07364 1027 [id number] Methodi 18:11:00 16:36:00 Bebeto Barriga 18979.1.[address] Nakia Cruz 3.430.2.7 Hos alvaro .3.121670 l .8 2022-01-31 2022-02-04 [facility] Rolando Olivier [place] 1.2.840.1 04577 1027 [id number] Methodi 18:11:00 16:36:00 Encounter Bebeto Ward 08738.1.[address] Nakia Cruz 3.430.2.7 Hos alvaro .3.257343 l .8 2022-02-03 2022-02-03 Anesthesia Consuelo, Oya 1.2.840.1 [id number] Methodi 14:37:00 15:02:00 Event Deepak Hecktor Veronique 08114.1.[address] 3.430.2.7 Hospit a .3.414859 l .8 2022-02-03 2022-02-03 Anesthesia Consuelo, Odavid 1.2.840.1 [id number] Methodi 14:37:00 15:02:00 Event Bebeto Heck 56692.1.[address] 3.430.2.7 Hospit a .3.395500 l .8 2022-02-03 2022-02-03 Surgery Sanches, 1.2.840.1 [id number] 5997 Methodi 14:30:00 15:00:00 Coe M. 88021.1.[address] 3.430.2.7 Hospit a .3.340772 l .8 2022-02-03 2022-02-03 Surgery Sanches, 1.2.840.1 [id number] 4499 Methodi 14:30:00 15:00:00 [place] M[address] 19113.1.[address] 3.430.2.7 Hospit a .3.835798 l .8 2022-02-02 2022-02-02 Prep for Sanches, 1.2.840.1 [id number] 14235 73070 Methodi 00:00:00 00:00:00 Surgery Coe M. 70855.1.[address] 3.430.2.7 Hospit a .3.584691 l .8 2022-02-02 2022-02-02 Prep for Verónica, 1.2.840.1 [id number] 21341 94470 Methodi 00:00:00 00:00:00 Surgery Carolin Diaz 25944.1.[address] 3.430.2.7 Hospit a .3.179417 l .8 2022-01-01 2022-01-06 [facility] 1.2.840 .1 [id number] Methodi 23:18:00 19:11:00 Encounter Nakia Cruz 73079.1.1 [address] [facility] 3.430.2.7 Hospita .3.788539 l .8 2022-01-01 2022-01-06 [facility] 1.2.840 .1 [id number] Methodi 23:18:00 19:11:00 Encounter Vignesh Cruzuang 27526.1.1 [address] [facility] 3.430.2.7 Hospita .3.339106 l .8 2022-01-05 2022-01-05 Surgery Ducariannani, 1.2.840.1 [id number] 57867 48842 Methodi 16:00:00 16:30:[address] 3.430.2.7 Hospit a .3.152501 l .8 2022-01-05 2022-01-05 Surgery Duchini, 1.2.840.1 [id number] 33559 08935 Methodi 16:00:00 16:30:[address] 3.430.2.7 Hospit a .3.653561 l .8 2022-01-05 2022-01-05 Anesthesia Handy Dietrich 1.2.840 .1 [id number] Methodi 15:55:00 16:18:00 Event Bebeto Heck 18452.1.[address] 3.430.2.7 Hospit a .3.504530 l .8 2022-01-05 2022-01-05 Anesthesia DietrichHandy arambula 1.2.840 .1 [id number] Methodi 15:55:00 16:18:00 Event Bebeto Heck 17726.1.[address] 3.430.2.7 Hospit a .3.964954 l .8 2022-01-02 2022-01-02 Travel 1.2.840.1 1.2.686.084 3797 571572 Methodi 00:00:00 00:00:[address] 3.430.2.7 0.2.7.3.698 Ho spita .3.283419 084.8 l .8 2022-01-02 2022-01-02 Travel 1.2.840.1 1.2.791.157 7328 293567 Methodi 00:00:00 00:00:[address] 3.430.2.7 0.2.7.3.698 Ho spita .3.241412 084.8 l .8 2021-12-11 2021-12-18 [facility] Stevo Raymundo 1.2.840.1 104 [id number] [id number] Methodi 16:59:00 17:46:00 Encounter Jeremy Sandoval 93796.1.[address] [facility] 3.430.2.7 Hospita .3.004158 l .8 2021-12-11 2021-12-18 [facility] Stevo Raymundo 1.2.840.1 104 [id number] Methodi 16:59:00 17:46:00 Encounter Jeremy Sandoval 41138.1.[address] [place] 3.430.2.7 Hospita .3.149284 l .8 2021-11-26 2021-12-03 [facility] Jefferson Skelton 1.2.840.1 09969 1027 [id number] Methodi 16:08:00 14:06:00 Encounter Jeremy Sandoval 58764.1.[address] Jose, Ahmed Sp 3.430.2.7 Hospita Nakia Cruz .3.610376 l .8 2021-11-26 2021-12-03 [facility] [place] 1.2.840.1 [id number] 1027 [id number] Methodi 16:08:00 14:06:00 Encounter Jeremy Sandoval 68332.1.[address] Jose, Ahmed Sp 3.430.2.7 Hospita Nakia Cruz .3.410367 l .8 2021-11-30 2021-11-30 Anesthesia RonnieMahnaz santo 1.2.840.1 1 [id number] Methodi 14:50:00 15:11:00 Event Feng Burgos 36103.1.[address] 3.430.2.7 Hospit a .3.662716 l .8 2021-11-30 2021-11-30 Anesthesia RonnieMahnaz santo 1.2.840.1 1 [id number] Methodi 14:50:00 15:11:00 Event Feng Burgos 04730.1.[address] 3.430.2.7 Hospit a .3.984706 l .8 2021-11-30 2021-11-30 Surgery Duchini, 1.2.840.1 [id number] 57812 Methodi 14:30:00 15:00:[address] 3.430.2.7 Hospit a .3.826577 l .8 2021-11-30 2021-11-30 Surgery Duchini, 1.2.840.1 [id number] 35066 58577 Methodi 14:30:00 15:00:[address] 3.430.2.7 Hospit a .3.981572 l .8 2021-10-21 2021-10-26 [facility] Sharita Suresh 1.2.840.1 [id number] Methodi 09:04:00 14:43:00 Encounter Nakia Cruz 60821.1.[address] Anand Aroraolas 3.430.2.7 Hospita .3.369409 l .8 2021-10-21 2021-10-26 [facility] Sharita 1.2.840.1 [id number] Methodi 09:04:00 14:43:00 Encounter Nakia Cruz 44725.1.[address] Anand Arora 3.430.2.7 Hospita .3.857924 l .8 2021-10-23 2021-10-23 Surgery Duchini, 1.2.840.1 [id number] 76564 Methodi 12:30:00 13:30:[address] 3.430.2.7 Hospit a .3.821208 l .8 2021-10-23 2021-10-23 Surgery Duchini, 1.2.840.1 [id number] 52006 63898 Methodi 12:30:00 13:30:[address] 3.430.2.7 Hospit a .3.884120 l .8 2021-10-23 2021-10-23 Anesthesia Consuelo, Oya 1.2.840.1 [id number] Methodi 12:25:00 12:53:[address] 3.430.2.7 Hospit a .3.683726 l .8 2021-10-23 2021-10-23 Anesthesia Consuelo, Oya 1.2.840.1 [id number] Methodi 12:25:00 12:53:[address] 3.430.2.7 Hospit a .3.715638 l .8 2021-10-21 2021-10-21 Travel 1.2.840.1 1.2.229.803 2438 870613 Methodi 00:00:00 00:00:[address] 3.430.2.7 0.2.7.3.698 Ho spita .3.977632 084.8 l .8 2021-10-21 2021-10-21 Travel 1.2.840.1 1.2.500.341 6322 731862 Methodi 00:00:00 00:00:[address] 3.430.2.7 0.2.7.3.698 Ho spita .3.328735 084.8 l .8 2021-09-28 2021-09-29 Emergency X Sukhdev SOTO [facility] ERT [id number] Univers 22:03:00 00:15:00 ity of [facility] 2021-09-28 2021-09-29 Emergency Sukhdev Soto [facility] 1.2.840.114 [id number] Univers 22:03:00 00:15:00 Mary WHITT 350.1.13.10 i ty [facility] 4.2.7.2.686 [facility] [phone] [facility] [address] [place] 2021-09-28 2021-09-28 Orders Doctor VERONIQUE 1.2.840.114 [id number] Univers 00:00:00 00:00:00 Only Unassigned, GONZALO 350.1.13.10 ity of [place] [facility] 4.2.7.2.686 Quang as [phone] [facility] [address] 2021-04-07 2021-04-07 Letter Orthopedic [facility] 1.2.840.114 [id number] Univers 00:00:00 00:00:00 (Out) Clinic SPECIALTY 350.1.13.10 ity of CARE 4.2.7.2.686 [facility] AT [id number] [place] pritesh PATINO [address] [facility] 2021-04-02 2021-04-02 Emergency X BEATRIZ SDSASHA ERT [id number] Univers 12:58:00 15:25:00 AZALEA ity of [facility] 2021-04-02 2021-04-02 Emergency Beatriz [facility] 1.2.840.114 [id number] Univers 12:58:00 15:25:00 Azalea WHITT 350.1.13.10 ity of [place].2.[place] [phone] [facility] [address] 2021-03-11 2021-03-11 Telephone NancyVERONIQUE 1.2.241.787 [id number] 9674 Univers 00:00:00 00:00:00 Frances SÁNCHEZ 350.1.13.10 it y of [facility] 4.2.7.2.686 Quang as [phone] [facility] [address] [place] 2021-03-10 2021-03-10 Outpatient Sami SHEFFIELD [facility] [id number] Univers 14:45:00 14:51:40 LEXIE lamonte [facility] 2021-03-10 2021-03-10 Laboratory Only, Ang Db Test [facility] 1.2.8 40.114 [id number] Univers 14:29:53 14:44:53 Only Unknown, Attending HEALTH 350.1.13.10 ity of [place] 4.2.7.2.686 Quang as MARINA?BLEA [phone] [address] MED[facility] 2021-03-10 2021-03-10 Orders Doctor VERONIQUE 1.2.840.114 [id number] Univers 00:00:00 00:00:00 Only Unassigned, GONZALO 350.1.13.10 ity of [place] [facility] 4.2.7.2.686 Quang as [phone] [facility] 009 [place] 2021-02-18 2021-02-20 [facility] Sharita Suresh 1.2.840.1 [id number] Methodi 15:45:00 14:08:00 Encounter Jeremy Sandoval 74204.1.[id number] 3.430.2.7 Hospit a .3.623835 l .8 2021-02-03 2021-02-04 Emergency [facility] [id number] Univers 21:10:00 03:21:00 GARTH aburto [facility] 2020-10-21 2020-10-27 Inpatient SYLVIA, [facility] [id number] 7333 [place] 00:00:00 00:00:00 [address] 2020-10-06 2020-10-06 Transition Jocelyne Taylor 1.2.840.114 [id number] Univers 00:00:00 00:00:00 of Care Madiha Sotelo 350.1.13.10 i [place] of [place] [id number] [facility] [address] 2020-09-28 2020-10-03 [facility] Rene Evans [facility] 1.2.840. 114 [id number] Univers 22:23:00 13:05:00 Encounter Shaina Pinto 350.1.13.10 [place] [phone] [facility] 081 Branch 2020-09-28 2020-09-28 Orders Doctor VERONIQUE 1.2.840.114 [id number] Univers 00:00:00 00:00:00 Only Unassigned, GONZALO 350.1.13.10 [facility] 4.2.7.2.686 Quang as [id number] [facility] 009 Branch 2020-09-09 2020-09-12 Inpatient NAKIA CRUZ [facility] [id number] [place] 00:00:00 00:00:00 462 Method i 2020-08-08 2020-08-08 Outpatient Sami GERMAN, [facility] [id number] Univers 15:40:00 15:40:00 TERRI ity [facility] 2020-07-11 2020-07-11 Outpatient [facility] [id number] Univers 15:40:00 15:40:00 ity [facility] 2020-06-09 2020-06-22 Inpatient MANUELITONAKIA [facility] [id number] [place] 00:00:00 00:00:00 836 Method i 2020-03-19 2020-03-23 Inpatient JAIME, [facility] [id number] 848 [place] 00:00:00 00:00:00 JEREMY 742 Method i 2020-03-14 2020-03-18 Inpatient JAIME, [facility] [id number] 585 [place] 00:00:00 00:00:00 JEREMY [address] 2020-02-13 2020-02-13 Laboratory Lab, [facility] Fam Pob I [facility] 1.2. 840.114 [id number] [facility] 10:22:10 10:42:10 Only [facility] 350.1.13.10 ity of [place] 4.2.7.2.686 Quang as Professio [id number] [place] [address] Office Building [facility] 2020-02-13 2020-02-13 Laboratory Lab, [facility] 1.2.840.114 [id number] 10:22:10 10:42:10 Only Fam Pob I Health 350.1.13.10 [place] 4.2.7.2.686 Professio [phone] nal [facility] Office Building [facility] 2019-09-28 2019-09-28 Outpatient [facility] [id number] Common 09:00:00 09:00:00 t [facility] 2019-09-18 2019-09-18 Outpatient Brazluciana Viverost [id number] Common 09:30:00 09:30:00 t Bone Bone and Spiri t and Joint [facility] - [facility] 2019-08-14 2019-08-14 Transition Jocelyne Alexandra 1.2.840.114 [id number] Univers 00:00:00 00:00:00 of Care Jovanny Sot[place] 350.1.13.10 [place] [id number] [address] 2019-08-14 2019-08-14 Transition Jocelyne Alexandra 1.2.840.114 [id number] 00:00:00 00:00:00 of Care Jovanny [place] 350.1.13.10 [place] 4.2.7.2.686 [id number] [facility] 2019-08-10 2019-08-11 Inpatient U ANALILIA PINTO [facility] [id number] Univers 02:55:00 16:09:00 ADNAN ity of [facility] 2019-08-10 2019-08-11 [facility] ANALILIA Pinto 1.2.364.617 [id number] Univers 02:55:00 16:09:00 Encounter Shaina Whitt 350.1.13.10 ity of [place] 4.2.7.2.686 [facility] [id number] [facility] 081 [place] 2019-08-10 2019-08-11 [facility] Alisha [facility] 1.2.966.797 [id number] 02:55:00 16:09:00 Encounter Shaina Whitt 350.1.13.10 [place] 4.2.7.2.686 [place] [id number] 081 Results Test Description Test Time Test Comments Results Result Comments Source POC glucose 2022-02-27 09:39:00 Test Item Value Reference Range Interpretation Comme nts POC glucose (test code = 107 mg/dL 65-99 H Ope rator Name: Aris Stevens ID: [id number]) [id number] able: [facility] Notified pad hand Interpretation (test code = Abnormal 57739-6) [facility] [id number] 09:39:00 Test Item Value Reference Range Interpretation Comments POC glucose (test code = 107 mg/dL 65-99 H Ope rator Name: Aris [id number]) SaraDevice ID: [id number] able: [facility] Notified pad hand Interpretation (test Abnormal code = 02110-2) [address]2022-11-18 02:51:50 Test Item Value Reference Range Interpretation Comments Ventricular rate (test code = 253) Atrial rate (test code = 255) LA interval (test code = 266) QRSD interval (test code = 260) QT interval (test code = 264) QTC interval (test code = 265) P axis 1 (test code = 267) QRS axis 1 (test code = 268) T wave axis (test code = 270) EKG impression (test Normal sinus code = 273) rhythm-Right bundle branch block-Abnormal ECG-- [address]2022-11-18 02:51:50 Test Item Value Reference Range Interpretation Comments Ventricular rate (test code = 253) Atrial rate (test code = 255) LA interval (test code = 266) QRSD interval (test code = 260) QT interval (test code = 264) QTC interval (test code = 265) P axis 1 (test code = 267) QRS axis 1 (test code = 268) T wave axis (test code = 270) EKG impression (test Normal sinus code = 273) rhythm-Right bundle branch block-Abnormal ECG-- [facility] ED Preliminary Interpretation - Not an [id number] 20:37:40 Test Item Value Reference Range Interpretation Comments SNOW (test code = SNOW) Stevo Hoskins DO 02/28/2022 12:23 [facility] ED Preliminary Interpretation - Not an OrderPerformed by: Stevo Hoskins DOAuthorized by: Stevo Hoskins DO ECG reviewed by ED Physician in the absence of a designated broker: yes Interpretation: Interpretation: abnormal Rate: ECG rate: 70 ECG rate assessment: normal Rhythm: Rhythm: sinus rhythm Ectopy: Ectopy: none QRS: QRS axis: Normal QRS intervals: WideConduction: Conduction: abnormal Abnormal conduction: complete RBBB ST segments: ST segments: NormalT waves: T waves: non-specific Lab Interpretation Abnormal (test code = 70167-3) [facility] Preliminary Interpretation - Not an [id number] 20:37:40 Test Item Value Reference Range Interpretation Comments SNOW (test code = SNOW) Stevo Hoskins DO 02/28/2022 12:23 [facility] ED Preliminary Interpretation - Not an OrderPerformed by: Stevo Hoskins DOAuthorized by: Stevo Hoskins DO ECG reviewed by ED Physician in the absence of a designated broker: yes Interpretation: Interpretation: abnormal Rate: ECG rate: 70 ECG rate assessment: normal Rhythm: Rhythm: sinus rhythm Ectopy: Ectopy: none QRS: QRS axis: Normal QRS intervals: WideConduction: Conduction: abnormal Abnormal conduction: complete RBBB ST segments: ST segments: NormalT waves: T waves: non-specific Lab Interpretation Abnormal (test code = 29941-5) [facility] BywuavupLJVV-ZvP-6 (COVID-19) RNA [Presence] in Respiratory specimen by HELENA with probe ylrgzldvd3624-27-24 18:28:31 Test Item Value Reference Range Interpretation Comments SARS-CoV-2 (COVID-19) RNA Not detected [Presence] in Respiratory specimen by HELENA with probe detection (test code = 47282-4) 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 employed in a Unknown healthcare setting (test code = 60919-1) Whether the patient has symptoms Unknown related to condition of interest (test code = 80228-0) Whether the patient was Unknown hospitalized for condition of interest (test code = 86516-2) Whether the patient was admitted Unknown to intensive care unit (ICU) for condition of interest (test code = 21449-6) Whether patient resides in a Unknown congregate care setting (test code = 85159-4) status (test code = Unknown 20611-8) Date and time of symptom onset Unknown (test code = 55056-0) [facility] WITH [id number] 21:35:39 Test Item Value Reference Range Interpretation [...] (test code = 53.7 fL 39.0-49.9 H 09817-9) RDW-CV (test code = 17.0 % 12.0-15.5 H 788-0) PLT (test code = See_Comment L [Automated 777-3) message] The sy stem which generated this result transmitted reference range : 166 - 358 10*3/ ?L. The reference r davi was not used to interpret this result as normal/abnormal . MPV (test code = 9.8 fL 9.5-12.9 08352-3) IPF % (test code = 2.2 % 1.3-7.7 Platelet count 7498448588) measured by fluorescence method. NRBC/100 WBC (test See_Comment [Automat ed code = 0421020850) message] The system which generated this result transmitted reference range : 0.0 - 10.0 /100 WBCs. The refer ence range was not u sed to interpret th is result as normal/abnormal . NRBC x10^3 (test code See_Comment [Auto mated = 4109756322) message] The s ystem which generated this result transmitted reference range : 10*3/?L. The reference range was not used to interpret this result as normal/abnormal . SEG % (test code = 60 % 33-76 77892-1) BAND % (test code = 3 % 0-1 H 02522-2) LYMPH % (test code = 23 % 14-54 09164-6) MONO % (test code = 12 % 0-4 H 46705-4) EOS % (test code = 2 % 0-3 05570-0) ANC (test code = 1.38 10*3/uL 1.88-7.09 L 753-4) PLT ESTIMATE (test Decreased Normal A code = 9317-9) Lab Interpretation Abnormal (test code = 39178-6) [facility] (42144)2022-02-15 20:44:39 Test Item Value Reference Range Interpretation Comments NA (test code = 137 mmol/L 135-145 2905444539) K (test code = 3.8 mmol/L 3.5-5.0 5439811504) CL (test code = 107 mmol/L 98-108 4990954489) CO2 TOTAL (test code = 25 mmol/L 23-31 7905721682) AGAP (test code = 2-16 3873045597) BUN (test code = 11 mg/dL 7-23 5397079415) GLUCOSE (test code = 103 mg/dL 70-110 2367649523) CREATININE (test code = 0.53 mg/dL 0.50-1.04 3258505629) TOTAL BILI (test code = 1.9 mg/dL 0.1-1.1 H 1917579967) CALCIUM (test code = 8.2 mg/dL 8.6-10.6 L 0155045150) T PROTEIN (test code = 6.4 g/dL 6.3-8.2 8695621404) ALBUMIN (test code = 3.4 g/dL 3.5-5.0 L 4396008038) ALK PHOS (test code = 146 U/L 34-122 H 7694565588) ALTv (test code = 40 U/L 5-35 H 1742-6) AST(SGOT) (test code = 52 U/L 13-40 H 0104295614) eGFR (test code = mL/min/1.73m2 7124696009) SNOW (test code = SNOW) Association of [...] tests). Lab Interpretation Abnormal (test code = 07255-8) [facility] 20:44:19 Test Item Value Reference Range Interpretation Comments LIPASE (test code = 5736853878) 298 U/L 0-220 H Lab Interpretation (test code = Abnormal 14281-1) [facility] uxhnjic8177-09-66 03:08:00 Test Item Value Reference Range Interpretation Comments Urine culture (test SEE COMMENT Bacteriu bartolo screen code = 9579474) negative. [facility] ljlskhg5394[facility]84-17 03:08:00 Test Item Value Reference Range Interpretation Comments Urine culture (test SEE COMMENT Bacteriu bartolo screen code = 8658076) negative. [facility] RNA [Presence] in Respiratory specimen by HELENA with probe iukoxhvsq3625-50-78 02:16:27 Test Item Value Reference Range Interpretation Comments SARS-CoV-2 (COVID-19) RNA Not detected [Presence] in Respiratory specimen by HELENA with probe detection (test code = 03010-8) 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 employed in a Unknown healthcare setting (test code = 59557-4) Whether the patient has symptoms Unknown related to condition of interest (test code = 24798-5) Whether the patient was Unknown hospitalized for condition of interest (test code = 54030-0) Whether the patient was admitted Unknown to intensive care unit (ICU) for condition of interest (test code = 25711-7) Whether patient resides in a Unknown congregate care setting (test code = 14407-1) status (test code = Unknown 07620-6) Date and time of symptom onset Unknown (test code = 46856-2) [facility] quhhbih8578-60-76 22:22:49 Test Item Value Reference Range Interpretation Comments Case number (test code = [id number]) Surgical pathology See link below for report (test code = PDF Lab Report 1017) Result status (test code This is Final Report = [id number]) for [id number] [facility] pathology aeohlnj4847-80-46 22:22:49 Test Item Value Reference Range Interpretation Comments Case number (test code = [id number]) Surgical pathology See link below for report (test code = PDF Lab Report 2255) Result status (test code This is Final Report = [id number]) for [id number] [facility] pathology onhyyme4633-78-25 22:22:49 Test Item Value Reference Range Interpretation Comments Case number (test code = [id number]) Surgical pathology See link below for report (test code = PDF Lab Report 2255) Result status (test code This is Final Report = 1655722) for [id number] [facility] pathology ghtkyie4383-51-39 22:22:49 Test Item Value Reference Range Interpretation Comments Case number (test code = [id number]) Surgical pathology See link below for report (test code = PDF Lab Report 2255) Result status (test code This is Final Report = [id number]) for [id number] [facility] nwfqaqv6813-53-55 17:57:00 Test Item Value Reference Range Interpretation Comments POC glucose (test code = 121 mg/dL 65-99 H Ope rator Name: [id number]) Rustam Elaine vice ID: [id number] able: [facility] Notified pad hand Interpretation (test Abnormal code = 30549-7) [facility] khfsoej8136-74-78 17:57:00 Test Item Value Reference Range Interpretation Comments POC glucose (test code = 121 mg/dL 65-99 H Ope rator Name: [id number]) [place]urt Elaine vice ID: [id number] able: [facility] Notified pad hand Interpretation (test Abnormal code = 40084-8) [facility] zwtyvoo0646-35-49 11:53:00 Test Item Value Reference Range Interpretation Comments Urine culture (test SEE COMMENT Bacteriu bartolo screen code = 3396064) negative. [facility] hpsjurj2096-12-18 11:53:00 Test Item Value Reference Range Interpretation Comments Urine culture (test SEE COMMENT Bacteriu bartolo screen code = 9274793) negative. [facility] RNA [Presence] in Respiratory specimen by HELENA with probe xtgwmsaco8587-47-62 08:30:51 Test Item Value Reference Range Interpretation Comments SARS-CoV-2 (COVID-19) RNA Not detected [Presence] in Respiratory specimen by HELENA with probe detection (test code = 61374-9) 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 employed in a Unknown healthcare setting (test code = 15902-6) Whether the patient has symptoms Unknown related to condition of interest (test code = 39305-2) Whether the patient was Unknown hospitalized for condition of interest (test code = 83279-1) Whether the patient was admitted Unknown to intensive care unit (ICU) for condition of interest (test code = 69592-1) Whether patient resides in a Unknown congregate care setting (test code = 30339-1) status (test code = Unknown 85410-4) Date and time of symptom onset Unknown (test code = 64912-9) [place] [address] mfhd2301-60-32 12:19:45 Test Item Value Reference Range Interpretation Comments Ventricular rate (test code = 253) Atrial rate (test code = 255) LA interval (test code = 266) QRSD interval [...] of 26-NOV-2021 19:29,-No significant change was found- [place] [address] xqzc5979-39-52 12:19:45 Test Item Value Reference Range Interpretation Comments Ventricular rate (test code = 253) Atrial rate (test code = 255) LA interval (test code = 266) QRSD interval [...] of 26-NOV-2021 19:29,-No significant change was found- [facility] 12 uwxp9796-34-15 12:19:45 Test Item Value Reference Range Interpretation Comments Ventricular rate (test code = 253) Atrial rate (test code = 255) LA interval (test code = 266) QRSD interval [...] of 26-NOV-2021 19:29,-No significant change was found- [facility] ED Preliminary Interpretation - Not an Ccdvy3411-54-81 05:33:45 Test Item Value Reference Range Interpretation Comments SNOW (test code = SNOW) Stevo Hoskins DO 12/13/2021 12:08 [facility] ED Preliminary Interpretation - Not an OrderPerformed by: Stevo Hoskins DOAuthorized by: Stevo Hoskins DO ECG reviewed by ED Physician in the absence of a designated broker: yes Previous ECG: Previous ECG: UnavailableInterpretat ion: Interpretation: abnormal Rate: ECG rate: 63 ECG rate assessment: normal Rhythm: Rhythm: sinus rhythm Ectopy: Ectopy: none QRS: QRS axis: Normal QRS intervals: NormalConduction: Conduction: abnormal Abnormal conduction: complete RBBB ST segments: ST segments: NormalT waves: T waves: non-specific Lab Interpretation Abnormal (test code = 08341-1) [facility] ED Preliminary Interpretation - Not an Dblty1091-03-34 05:33:45 Test Item Value Reference Range Interpretation Comments SNOW (test code = SNOW) Stevo Hoskins DO 12/13/2021 12:08 [facility] ED Preliminary Interpretation - Not an OrderPerformed by: Stevo Hoskins DOAuthorized by: Stevo Hoskins DO ECG reviewed by ED Physician in the absence of a designated broker: yes Previous ECG: Previous ECG: UnavailableInterpretat ion: Interpretation: abnormal Rate: ECG rate: 63 ECG rate assessment: normal Rhythm: Rhythm: sinus rhythm Ectopy: Ectopy: none QRS: QRS axis: Normal QRS intervals: NormalConduction: Conduction: abnormal Abnormal conduction: complete RBBB ST segments: ST segments: NormalT waves: T waves: non-specific Lab Interpretation Abnormal (test code = 91712-9) [facility] ED Preliminary Interpretation - Not an Bnhxd0591-10-50 05:33:45 Test Item Value Reference Range Interpretation Comments SNOW (test code = SNOW) Stevo Hoskins DO 12/13/2021 12:08 [facility] ED Preliminary Interpretation - Not an OrderPerformed by: Stevo Hoskins DOAuthorized by: Stevo Hoskins DO ECG reviewed by ED Physician in the absence of a designated broker: yes Previous ECG: Previous ECG: UnavailableInterpretat ion: Interpretation: abnormal Rate: ECG rate: 63 ECG rate assessment: normal Rhythm: Rhythm: sinus rhythm Ectopy: Ectopy: none QRS: QRS axis: Normal QRS intervals: NormalConduction: Conduction: abnormal Abnormal conduction: complete RBBB ST segments: ST segments: NormalT waves: T waves: non-specific Lab Interpretation Abnormal (test code = 35544-9) [facility] vukhbiw3263-44-67 05:22:00 Test Item Value Reference Range Interpretation Comments Urine culture (test SEE COMMENT Bacteriu bartolo screen code = 8380389) negative. [facility] RNA [Presence] in Respiratory specimen by HELENA with probe wctxpgxvg3362-50-61 02:31:14 Test Item Value Reference Range Interpretation Comments SARS-CoV-2 (COVID-19) RNA Not detected [Presence] in Respiratory specimen by HELENA with probe detection (test code = 40963-9) 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 employed in a Unknown healthcare setting (test code = 97498-5) Whether the patient has symptoms Unknown related to condition of interest (test code = 78519-4) Whether the patient was Unknown hospitalized for condition of interest (test code = 55939-2) Whether the patient was admitted Unknown to intensive care unit (ICU) for condition of interest (test code = 15846-1) Whether patient resides in a Unknown congregate care setting (test code = 71884-4) status (test code = Unknown 54646-5) Date and time of symptom onset Unknown (test code = 21069-4) [facility] 12 bizh9531-14-47 13:24:41 Test Item Value Reference Range Interpretation Comments Ventricular rate (test code = 253) Atrial rate (test code = 255) LA interval (test code = 266) QRSD interval (test code = 260) QT interval (test code = 264) QTC interval (test code = 265) P axis 1 (test code = 267) QRS axis 1 (test code = 268) T wave axis (test code = 270) EKG impression (test code Normal sinus = 273) rhythm-Right bundle branch block- [facility] ED Preliminary Interpretation - Not an Mbzvl3601-48-44 00:04:12 Test Item Value Reference Range Interpretation Comments SNOW (test code = SNOW) Jefferson Skelton MD 12/04/2021 11:12 [facility] ED Preliminary Interpretation - Not an OrderPerformed by: Jefferson Skelton MDAuthorized by: Jefferson Skelton MD ECG reviewed by ED Physician in the absence of a designated broker: yes Interpretation: Interpretation: abnormal Rate: ECG rate: 70 ECG rate assessment: normal Rhythm: Rhythm: sinus rhythm QRS: QRS axis: Normal QRS intervals: WideConduction: Conduction: abnormal Abnormal conduction: complete RBBB ST segments: ST segments: NormalOther findings: Other findings: prolonged qTc interval Lab Interpretation Abnormal (test code = 64067-4) [facility] rmfuukw2605-12-18 02:26:00 Test Item Value Reference Range Interpretation Comments Urine culture (test SEE COMMENT Bacteriu bartolo screen code = 5805863) negative. [facility] RNA [Presence] in Respiratory specimen by HELENA with probe gnnadwtwc3797-83-39 00:33:54 Test Item Value Reference Range Interpretation Comments SARS-CoV-2 (COVID-19) RNA Not detected [Presence] in Respiratory specimen by HELENA with probe detection (test code = 17335-0) 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 employed in a Unknown healthcare setting (test code = 36782-4) Whether the patient has symptoms Unknown related to condition of interest (test code = 76323-5) Whether the patient was Unknown hospitalized for condition of interest (test code = 57108-0) Whether the patient was admitted Unknown to intensive care unit (ICU) for condition of interest (test code = 73743-4) Whether patient resides in a Unknown congregate care setting (test code = 48165-2) status (test code = Unknown 45443-5) Date and time of symptom onset Unknown (test code = 60610-3) [place] CHOUZSQERWLFIUJND9981-76-28 09:34:08 Test Item Value Reference Range Interpretation Comments MAGNESIUM (test code = 0700519619) 1.4 mg/dL 1.7-2.4 L Lab Interpretation (test code = Abnormal 69515-5) [facility]. METABOLIC PANEL (28778)2020-10-03 09:33:48 Test Item Value Reference Range Interpretation Comments NA (test code = 136 mmol/L 135-145 6416125070) K (test code = 3.3 mmol/L 3.5-5.0 L 1771854271) CL (test code = 100 mmol/L 98-108 8300551051) CO2 TOTAL (test code = 33 mmol/L 23-31 H 4567767281) AGAP (test code = 2-16 9732436459) BUN (test code = 3 mg/dL 7-23 L 0448968754) GLUCOSE (test code = 95 mg/dL 70-110 8578659850) CREATININE (test code = 0.47 mg/dL 0.50-1.04 L 8705792374) TOTAL BILI (test code = 1.5 mg/dL 0.1-1.1 H 8760783309) CALCIUM (test code = 8.1 mg/dL 8.6-10.6 L 4637348521) T PROTEIN (test code = 5.9 g/dL 6.3-8.2 L 0420557640) ALBUMIN (test code = 2.9 g/dL 3.5-5.0 L 8640842032) ALK PHOS (test code = 115 U/L 34-122 4519711186) ALTv (test code = 24 U/L 5-35 1742-6) AST(SGOT) (test code = 35 U/L 13-40 7794293578) eGFR (test code = mL/min/1.73m2 0996765636) SNOW (test code = SNOW) Association of [...] tests). Lab Interpretation Abnormal (test code = 13064-9) [facility] 09:33:28 Test Item Value Reference Range Interpretation Comments PHOSPHORUS (test code = 5284774149) 2.8 mg/dL 2.5-5.0 Lab Interpretation (test code = Normal 74043-5) [facility] [id number] 09:31:46 Test Item Value Reference Range Interpretation [...] (test code = 53.8 fL 39.0-49.9 H 25397-7) RDW-CV (test code = 19.9 % 12.0-15.5 H 788-0) PLT (test code = See_Comment L [Automated 777-3) message] The sy stem which generated this result transmitted reference range : 166 - 358 10*3/ ?L. The reference r davi was not used to interpret this result as normal/abnormal . MPV (test code = 10.9 fL 9.5-12.9 55520-5) IPF % (test code = 3.6 % 1.3-7.7 Platelet count 7343565837) measured by fluorescence method. NRBC/100 WBC (test See_Comment [Automat ed code = 4001163047) message] The system which generated this result transmitted reference range : 0.0 - 10.0 /100 WBCs. The refer ence range was not u sed to interpret th is result as normal/abnormal . NRBC x10^3 (test code See_Comment [Auto mated = 2210073585) message] The s ystem which generated this result transmitted reference range : 10*3/?L. The reference range was not used to interpret this result as normal/abnormal . GRAN MAT (NEUT) % 68.1 % (test code = 770-8) IMM GRAN % (test code 1.10 % = 3705060511) LYMPH % (test code = 15.5 % 736-9) MONO % (test code = 11.3 % 5905-5) EOS % (test code = 3.4 % 713-8) BASO % (test code = 0.6 % 706-2) GRAN MAT x10^3(ANC) 2.42 10*3/uL 1.88-7.09 (test code = 2867180928) IMM GRAN x10^3 (test 0.04 10*3/uL 0.00-0.06 code = 9640345679) LYMPH x10^3 (test code 0.55 10*3/uL 1.32-3.29 L = 731-0) MONO x10^3 (test code 0.40 10*3/uL 0.33-0.92 = 742-7) EOS x10^3 (test code = 0.12 10*3/uL 0.03-0.39 711-2) BASO x10^3 (test code <0.03 0.01-0.07 = 704-7) Lab Interpretation Abnormal (test code = 67071-0) [facility] WITH [id number] 10:47:09 Test Item Value Reference Range Interpretation [...] (test code = 52.2 fL 39.0-49.9 H 25146-2) RDW-CV (test code = 18.6 % 12.0-15.5 H 788-0) PLT (test code = See_Comment L [Automated 777-3) message] The sy stem which generated this result transmitted reference range : 166 - 358 10*3/ ?L. The reference r davi was not used to interpret this result as normal/abnormal . MPV (test code = 10.1 fL 9.5-12.9 53586-5) IPF % (test code = 3.2 % 1.3-7.7 Platelet count 0797069017) measured by fluorescence method. NRBC/100 WBC (test See_Comment [Automat ed code = 0661064230) message] The system which generated this result transmitted reference range : 0.0 - 10.0 /100 WBCs. The refer ence range was not u sed to interpret th is result as normal/abnormal . NRBC x10^3 (test code See_Comment [Auto mated = 2920631087) message] The s ystem which generated this result transmitted reference range : 10*3/?L. The reference range was not used to interpret this result as normal/abnormal . GRAN MAT (NEUT) % 65.1 % (test code = 770-8) IMM GRAN % (test code 1.20 % = 9875951504) LYMPH % (test code = 16.9 % 736-9) MONO % (test code = 11.5 % 5905-5) EOS % (test code = 4.5 % 713-8) BASO % (test code = 0.8 % 706-2) GRAN MAT x10^3(ANC) 1.58 10*3/uL 1.88-7.09 L (test code = 6527004562) IMM GRAN x10^3 (test 0.03 10*3/uL 0.00-0.06 code = 0814583260) LYMPH x10^3 (test code 0.41 10*3/uL 1.32-3.29 L = 731-0) MONO x10^3 (test code 0.28 10*3/uL 0.33-0.92 L = 742-7) EOS x10^3 (test code = 0.11 10*3/uL 0.03-0.39 711-2) BASO x10^3 (test code <0.03 0.01-0.07 = 704-7) POLYCHROMASIA (test 2+ See_Comment [Automa josemanuel code = 55623-3) message] The system which generated this result transmitted reference range : 2+. The referen ce range was not u sed to interpret th is result as normal/abnormal . LG GRAN LYMPHS (test Rare Rare code = 9495380394) Lab Interpretation Abnormal (test code = 82219-3) [facility]. METABOLIC PANEL (81610)2020-10-02 10:19:28 Test Item Value Reference Range Interpretation Comments NA (test code = 135 mmol/L 135-145 8743775486) K (test code = 3.4 mmol/L 3.5-5.0 L 7430042922) CL (test code = 104 mmol/L 98-108 2897239526) CO2 TOTAL (test code = 27 mmol/L 23-31 5481610609) AGAP (test code = 2-16 4233224749) BUN (test code = 4 mg/dL 7-23 L 0669399785) GLUCOSE (test code = 97 mg/dL 70-110 3940648272) CREATININE (test code = 0.45 mg/dL 0.50-1.04 L 6072200251) TOTAL BILI (test code = 1.7 mg/dL 0.1-1.1 H 3901131016) CALCIUM (test code = 8.2 mg/dL 8.6-10.6 L 1002754036) T PROTEIN (test code = 6.0 g/dL 6.3-8.2 L 0716461051) ALBUMIN (test code = 3.1 g/dL 3.5-5.0 L 7393001631) ALK PHOS (test code = 120 U/L 34-122 2558353735) ALTv (test code = 26 U/L 5-35 1742-6) AST(SGOT) (test code = 39 U/L 13-40 1039232587) eGFR (test code = mL/min/1.73m2 9708176589) SNOW (test code = SNOW) Association of [...] tests). Lab Interpretation Abnormal (test code = 47362-8) [facility] [id number] 02:50:27COVID DMT InterpretationInterpretation/Recommendations: Molecular NAAT Tests for [...] COVID-19 testing the patient has had at [facility], including molecular NAAT testing (more commonly known as PCR testing and Rapid ID Now testing) and antibody testing. It does not take into account any testingthat a patient has had outside of the [facility] medical record. [facility] LABORATORY SERVICESCOVID PrazobqGIXE-OaO-8 NAAT (no units) ? ? Date ? Value ? 02/13/2020 ? NotDetected ? SARS-CoV-2 Rapid ID NOW (no units) ? ? Date ? Value ? 09/29/2020 ? Not Detected ? ? ? 08/10/2019 ? Not Detected ? [facility] WITH [id number] 10:31:29 Test Item Value Reference Range Interpretation [...] (test code = 52.3 fL 39.0-49.9 H 95414-1) RDW-CV (test code = 18.4 % 12.0-15.5 H 788-0) PLT (test code = See_Comment LL [Automated 777-3) message] The sy stem which generated this result transmitted reference range : 166 - 358 10*3/ ?L. The reference r davi was not used to interpret this result as normal/abnormal . MPV (test code = 11.2 fL 9.5-12.9 46590-3) IPF % (test code = 3.9 % 1.3-7.7 Platelet count 5820345873) measured by fluorescence method. NRBC/100 WBC (test See_Comment [Automat ed code = 5666209879) message] The system which generated this result transmitted reference range : 0.0 - 10.0 /100 WBCs. The refer ence range was not u sed to interpret th is result as normal/abnormal . NRBC x10^3 (test code <0.01 See_Comment [Auto mated = 8887774837) message] The s ystem which generated this result transmitted reference range : 10*3/?L. The reference range was not used to interpret this result as normal/abnormal . GRAN MAT (NEUT) % 57.5 % (test code = 770-8) IMM GRAN % (test code 0.50 % = 9273273098) LYMPH % (test code = 20.7 % 736-9) MONO % (test code = 13.3 % 5905-5) EOS % (test code = 6.9 % 713-8) BASO % (test code = 1.1 % 706-2) GRAN MAT x10^3(ANC) 1.08 10*3/uL 1.88-7.09 L (test code = 0070415756) IMM GRAN x10^3 (test <0.03 0.00-0.06 code = 4798712655) LYMPH x10^3 (test code 0.39 10*3/uL 1.32-3.29 L = 731-0) MONO x10^3 (test code 0.25 10*3/uL 0.33-0.92 L = 742-7) EOS x10^3 (test code = 0.13 10*3/uL 0.03-0.39 711-2) BASO x10^3 (test code <0.03 0.01-0.07 = 704-7) BASO STIPPLING (test Present A code = 703-9) ELLIPTO/OVAL (test 2+ See_Comment A [Automat ed code = 77647-1) message] The system which generated this result transmitted reference range : (none). The reference range was not used to interpret this result as normal/abnormal . POLYCHROMASIA (test 2+ See_Comment [Automa josemanuel code = 62947-5) message] The system which generated this result transmitted reference range : 2+. The referen ce range was not u sed to interpret th is result as normal/abnormal . Lab Interpretation Abnormal (test code = 55236-0) [facility]OLIC [facility] (36811)2020-10-01 09:19:22 Test Item Value Reference Range Interpretation Comments NA (test code = 135 mmol/L 135-145 8169075077) K (test code = 4.0 mmol/L 3.5-5.0 9458971628) CL (test code = 107 mmol/L 98-108 0495169312) CO2 TOTAL (test code = 24 mmol/L 23-31 8911911260) AGAP (test code = 2-16 0155120275) BUN (test code = 7 mg/dL 7-23 3505916010) GLUCOSE (test code = 93 mg/dL 70-110 6921736257) CREATININE (test code = 0.47 mg/dL 0.50-1.04 L 5080665618) TOTAL BILI (test code = 1.6 mg/dL 0.1-1.1 H 4530075198) CALCIUM (test code = 8.1 mg/dL 8.6-10.6 L 5284647726) T PROTEIN (test code = 5.8 g/dL 6.3-8.2 L 7689481965) ALBUMIN (test code = 2.8 g/dL 3.5-5.0 L 9006482340) ALK PHOS (test code = 106 U/L 34-122 6174034300) ALTv (test code = 23 U/L 5-35 1742-6) AST(SGOT) (test code = 39 U/L 13-40 3732390151) eGFR (test code = mL/min/1.73m2 6577931403) SNOW (test code = SNOW) Association of [...] tests). Lab Interpretation Abnormal (test code = 52637-1) [facility] [id number] 20:47:45 Test Item Value Reference Range Interpretation Comments TROPONIN I (test 0.002 ng/mL See_Comment [Automated code = 1956717569) message] The system which generated this result [...] ? Lab Interpretation Normal (test code = 78245-4) [facility] [id number] 19:11:57 Test Item Value Reference Range Interpretation Comments URINE CULTURE (test code <10,000 CFU/mL = 630-4) Gram-Positive Cocci [facility] BY [id number] 18:17:03 Test Item Value Reference Range Interpretation Comments Campylobacter (jejuni, Negative Negative, coli and upsaliensis) Indeterminate, (test code = 40012-2) See comment Plesiomonas shigelloides Negative Negative, (test code = 66442-3) Indeterminate, See comment Salmonella (test code = Negative Negative, 03073-4) Indeterminate, See comment Yersinia enterocolitica Negative Negative, (test code = 58290-3) Indeterminate, See comment Vibrio (test code = Negative Negative, 12852-2) Indeterminate, See comment Vibrio cholerae (test Negative Negative, code = 04896-6) Indeterminate, See comment Enteroaggregative E. Negative Negative, coli (EAEC) (test code = Indeterminate, 31582-8) See comment Enteropathogenic E. coli Negative Negative, N/A, (EPEC) (test code = Indeterminate, 40936-8) See comment Enterotoxigenic E. coli Negative Negative, (ETEC) (test code = Indeterminate, 50748-2) See comment Shiga toxin-Producing E. Negative Negative, coli (STEC) (test code = Indeterminate, 82623-0) See comment Shigella/Enteroinvasive Negative Negative, E. coli (EIEC) (test Indeterminate, code = 66761-9) See comment Cryptosporidium (test Negative Negative, code = 43063-8) Indeterminate, See comment Cyclospora cayetanensis Negative Negative, (test code = 28095-5) Indeterminate, See comment Entamoeba histolytica Negative Negative, (test code = 70125-5) Indeterminate, See comment Giardia lamblia (test Negative Negative, code = 83743-5) Indeterminate, See comment Adenovirus F 40/41 (test Negative Negative, code = 00400-4) Indeterminate, See comment Astrovirus (test code = Negative Negative, 49298-5) Indeterminate, See comment Norovirus GI/GII (test Negative Negative, code = 68996-0) Indeterminate, See comment Rotavirus A (test code = Negative Negative, 83075-1) Indeterminate, See comment Sapovirus (test code = Negative Negative, 63913-8) Indeterminate, See comment Clostridioides Positive Negative, A (Clostridium) difficile Indeterminate, Toxin A/B (test code = See comment 06261-0) SNOW (test code = SNOW) Based on Pubster GI Panel package insert, the nviteArray GI Panel contains a single multiplexed assay [...] Clostridium difficile toxin A/B Detected. Based the CepSc[employer] Preventionid Xpert C. difficile/Epi assay package insert, Xpert C. difficile/Epi assay detects the toxin B gene (tcdB), the binary toxin gene (CDT), and the fluezn-srbj-dsgs deletion at nucleotide 117 within the gene encoding a negative regulator of toxin production (tcdC 117). These two assays do not target the exact same genes could explain the discrepancy results from GI panel and Cepheid assay. Please correlate the test results with patient clinical presentations for best patient care. Thanks. Hanane eRgan, PHD ?09/30/2020 13:15 Negative:A negative result does not rule-out infection. ?This assay does not test for all potential infectious agents of diarrheal disease. Positive:A positive test result does not necessarily indicate the presence of viable organism. Lab Interpretation (test Abnormal code = 44571-3) [facility] [id number] 14:26:32 Test Item Value Reference Range Interpretation Comments Occult (guaiac) Blood (test code = Negative Negative 2335-8) Lab Interpretation (test code = Normal 67072-8) [facility] WITH [id number] 13:54:12 Test Item Value Reference Range Interpretation [...] (test code = 52.9 fL 39.0-49.9 H 59992-5) RDW-CV (test code = 18.3 % 12.0-15.5 H 788-0) PLT (test code = See_Comment LL [Automated 777-3) message] The sy stem which generated this result transmitted reference range : 166 - 358 10*3/ ?L. The reference r davi was not used to interpret this result as normal/abnormal . MPV (test code = 10.8 fL 9.5-12.9 19369-3) IPF % (test code = 4.2 % 1.3-7.7 Platelet count 8714413586) measured by fluorescence method. NRBC/100 WBC (test See_Comment [Automat ed code = 1026214462) message] The system which generated this result transmitted reference range : 0.0 - 10.0 /100 WBCs. The refer ence range was not u sed to interpret th is result as normal/abnormal . NRBC x10^3 (test code <0.01 See_Comment [Auto mated = 6635219501) message] The s ystem which generated this result transmitted reference range : 10*3/?L. The reference range was not used to interpret this result as normal/abnormal . GRAN MAT (NEUT) % 60.0 % (test code = 770-8) IMM GRAN % (test code 0.40 % = 0872042663) LYMPH % (test code = 20.6 % 736-9) MONO % (test code = 11.3 % 5905-5) EOS % (test code = 6.9 % 713-8) BASO % (test code = 0.8 % 706-2) GRAN MAT x10^3(ANC) 1.49 10*3/uL 1.88-7.09 L (test code = 1519903372) IMM GRAN x10^3 (test <0.03 0.00-0.06 code = 9820241266) LYMPH x10^3 (test code 0.51 10*3/uL 1.32-3.29 L = 731-0) MONO x10^3 (test code 0.28 10*3/uL 0.33-0.92 L = 742-7) EOS x10^3 (test code = 0.17 10*3/uL 0.03-0.39 711-2) BASO x10^3 (test code <0.03 0.01-0.07 = 704-7) Lab Interpretation Abnormal (test code = 48051-0) [facility]. METABOLIC PANEL (42773)2020-09-30 12:47:49 Test Item Value Reference Range Interpretation Comments NA (test code = 135 mmol/L 135-145 7037978182) K (test code = 4.0 mmol/L 3.5-5.0 7652162418) CL (test code = 108 mmol/L 98-108 4656423593) CO2 TOTAL (test code = 23 mmol/L 23-31 6893993784) AGAP (test code = 2-16 3791243616) BUN (test code = 8 mg/dL 7-23 0641113640) GLUCOSE (test code = 109 mg/dL 70-110 2594744612) CREATININE (test code = 0.52 mg/dL 0.50-1.04 4421430967) TOTAL BILI (test code = 1.7 mg/dL 0.1-1.1 H 8680901045) CALCIUM (test code = 8.0 mg/dL 8.6-10.6 L 0570172195) T PROTEIN (test code = 5.7 g/dL 6.3-8.2 L 9324970321) ALBUMIN (test code = 2.7 g/dL 3.5-5.0 L 0210245440) ALK PHOS (test code = 106 U/L 34-122 0712083815) ALTv (test code = 22 U/L 5-35 1742-6) AST(SGOT) (test code = 34 U/L 13-40 9376695841) eGFR (test code = mL/min/1.73m2 9985211750) SNOW (test code = SNOW) Association of [...] tests). Lab Interpretation Abnormal (test code = 70193-8) [facility] [id number] 11:49:39 Test Item Value Reference Range Interpretation Comments Fecal Leukocytes (test code = Positive Negative A 6026700366) Lab Interpretation (test code = Abnormal 31926-8) [facility]fieldN-TERMINAL [id number] 10:20:53 Test Item Value Reference Range Interpretation Comments NT-proBNP (test code 68 pg/mL See_Comment [Autom ated = 9019031163) message] The system which generated this result transmitted reference range : <=125. The reference range was not used to interpret this result as normal/abnormal . SNOW (test code = SNOW) Biotin has been reported to cause a negative bias, interpret results relative to patient's use of biotin. Lab Interpretation Normal (test code = 34427-1) [facility]field[facility]OSTRIDIUM DIFFICILE [id number] 05:18:16 Test Item Value Reference Range Interpretation Comments Clostridioides (Clostridium) Negative Negative difficile (test code = 22247-6) Lab Interpretation (test code = Normal 91367-7) [facility]fieldPOMN GLUCOSE (AUTOMATED)2020-09-30 00:54:42 Test Item Value Reference Range Interpretation Comments POCT GLU (test code = 5160329750) 111 mg/dL 70-110 H Lab Interpretation (test code = Abnormal 83027-5) [facility] (NA, K, CL, CO2, GLUCOSE, BUN, CREATININE, CA)2020-09-29 22:08:22 Test Item Value Reference Range Interpretation Comments NA (test code = 135 mmol/L 135-145 6017290014) K (test code = 3.7 mmol/L 3.5-5.0 6618740369) CL (test code = 108 mmol/L 98-108 0808800629) CO2 TOTAL (test code = 22 mmol/L 23-31 L 4366622604) AGAP (test code = 2-16 4313391861) BUN (test code = 9 mg/dL 7-23 1097917679) GLUCOSE (test code = 104 mg/dL 70-110 4326411227) CREATININE (test code = 0.51 mg/dL 0.50-1.04 6787686257) CALCIUM (test code = 7.9 mg/dL 8.6-10.6 L 8380836361) eGFR (test code = mL/min/1.73m2 1261612032) SNOW (test code = SNOW) Association of [...] tests). Lab Interpretation Abnormal (test code = 52970-5) [facility]MOGLOBIN2021-06-21 21:41:20 Test Item Value Reference Range Interpretation Comments HGB (test code = 718-7) 7.4 g/dL 11.6-15.0 L Lab Interpretation (test code = Abnormal 27824-6) [facility]field[facility]ITAMIN B12, [id number] 20:39:52 Test Item Value Reference Range Interpretation Comments VIT B12 (test code = 212 pg/mL 240-930 L 4816656023) SNOW (test code = SNOW) Biotin has been reported to cause a positive bias, interpret results relative to patient's use of biotin. 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.[facility]fieldC-REACTIVE [id number] 17:01:56 Test Item Value Reference Range Interpretation Comments CRP (test code = 4715232803) 4.7 mg/dL <0.8 H Lab Interpretation (test code = Abnormal 56899-4) [facility]field[facility]IT[facility]IN D, [id number] 16:43:29 Test Item Value Reference Range Interpretation Comments VIT D 25OH (test code = <13 25-80 L 59761-1) SNOW (test code = SNOW) Deficiency: <20 ng/mLInsufficiency: 20-24 ng/mLOptimal: 25-80 ng/mL Lab Interpretation (test Abnormal code = 27439-6) [facility]fieldPROCALCITONIN2021-06-21 16:15:30 Test Item Value Reference Range Interpretation Comments Procalcitonin (test 0.08 ng/mL <0.07 H code = 0258252835) SNOW (test code = SNOW) INTERPRETATION OF [...] lung abscess/empyema. For further information please refer to:[email or web address] Lab Interpretation Abnormal (test code = 81070-8) [facility]fieldOSMOLALITY [id number] 15:35:14 Test Item Value Reference Range Interpretation Comments OSMO U (test code = See_Comment [Automa josemanuel message] 6491056016) The system [employer] generated this result transmitted ref erence range: 50-1,100 mOsm/kg. The re ference range was not u sed to interpret this result as normal/abnor mal. Lab Interpretation (test Normal code = 05860-7) [facility]fieldTROPONIN [id number] 14:04:56 Test Item Value Reference Range Interpretation Comments TROPONIN I (test 0.002 ng/mL See_Comment [Automated code = 5931496236) message] The system which generated this result [...] ? Lab Interpretation Normal (test code = 36769-8) [facility]fieldCT ABDOMEN PELVIS W [id number] 13:37:17 1. ?Findings concerning for infectious or [...] reviewed this study and agree with theabove report.[facility] WITH [id number] 11:41:25 Test Item Value Reference Range Interpretation [...] (test code = 52.4 fL 39.0-49.9 H 34192-9) RDW-CV (test code = 18.2 % 12.0-15.5 H 788-0) PLT (test code = See_Comment LL [Automated 777-3) message] The system which generated this result transmit josemanuel reference range : 166 - 358 10*3/ ?L. The reference range was not u sed to interpret th is result as normal/abnormal . MPV (test code = Not Measure d 11712-4) IPF % (test code = 4.3 % 1.3-7.7 Platelet count 8624457179) measured by fluorescence method. NRBC/100 WBC (test See_Comment [Automat ed code = 0557676612) message] The system which generated this result transmit josemanuel reference range : 0.0 - 10.0 /100 WBCs. The reference range was not used to interpret this result as normal/abnormal . NRBC x10^3 (test code <0.01 See_Comment [Auto mated = 9471618019) message] The system which generated this result transmit josemanuel reference range : 10*3/?L. The reference range was not used to interpret this result as normal/abnormal . GRAN MAT (NEUT) % 74.4 % (test code = 770-8) IMM GRAN % (test code 0.50 % = 9355043396) LYMPH % (test code = 10.3 % 736-9) MONO % (test code = 12.3 % 5905-5) EOS % (test code = 2.0 % 713-8) BASO % (test code = 0.5 % 706-2) GRAN MAT x10^3(ANC) 3.02 10*3/uL 1.88-7.09 (test code = 0779478996) IMM GRAN x10^3 (test <0.03 0.00-0.06 code = 9610054282) LYMPH x10^3 (test 0.42 10*3/uL 1.32-3.29 L code = 731-0) MONO x10^3 (test code 0.50 10*3/uL 0.33-0.92 = 742-7) EOS x10^3 (test code 0.08 10*3/uL 0.03-0.39 = 711-2) BASO x10^3 (test code <0.03 0.01-0.07 = 704-7) PLT ESTIMATE (test Decreased Normal A code = 9317-9) SNOW (test code = SNOW) CBC smear reduced platelet Lab Interpretation Abnormal (test code = 27608-8) [facility]field[facility]-TERMINAL [id number] 11:07:24 Test Item Value Reference Range Interpretation Comments NT-proBNP (test code 79 pg/mL See_Comment [Autom ated = 8282660190) message] The system which generated this result transmitted reference range : <=125. The reference range was not used to interpret this result as normal/abnormal . SNOW (test code = SNOW) Biotin has been reported to cause a negative bias, interpret results relative to patient's use of biotin. Lab Interpretation Normal (test code = 74726-1) [facility]fieldIRON [id number] 11:04:41 Test Item Value Reference Range Interpretation Comments IRON (test code = 2673986326) 31 ug/dL 50-160 L TIBC (test code = 8479788952) 295 ug/dL 250-410 % FE SAT (test code = 3504531265) 11 % 20-50 L Lab Interpretation (test code = Abnormal 13750-1) [facility]fieldPROTEIN CREAT RATIO URINE [id number] 10:57:19 Test Item Value Reference Range Interpretation Comments T. PROT U (test code = 2888-6) 9 mg/dL CREAT U (test code = 0422166232) 187.5 mg/dL Protein/Creatinine Ratio Urine 0.0-2.0 (test code = 4702016343) [facility]fieldSODIUM, URINE [id number] 10:53:21 Test Item Value Reference Range Interpretation Comments NA URINE (test code = 6365698951) 30 mmol/L [facility]fieldSEDIMENTATION [id number] 10:33:04 Test Item Value Reference Range Interpretation Comments ESR (test code = See_Comment [Automated message] 3650886417) The system [employer] generated this result transmitted ref erence range: 0 - 20 m m/HR. The reference r davi was not used to interpret this result as normal/abnor mal. Lab Interpretation (test Normal code = 36860-3) [facility]fieldPROTHROMBIN TIME / [id number] 09:43:39 Test Item Value Reference Range Interpretation Comments PROTIME PATIENT (test See_Comment H [Auto mated message] code = 5964-2) The system [employer] generated this result transmitted ref erence range: 12.0 - 1 4.7 Seconds. The reference range was not used to int erpret this result as normal/abnormal . INR (test code = 6301-6) Nor mal INR <1.1; Warfarin Therap eutic range 2.0 to 3. 0 or 2.5 to 3.5, dep ending upon the indica tions. Lab Interpretation (test Abnormal code = 14388-1) [facility]fieldLactic Acid Whole [id number] 08:42:38 Test Item Value Reference Range Interpretation Comments LACTIC ACID (test code = 1.47 mmol/L 0.50-2.20 5495217034) Lab Interpretation (test code = Normal 30566-6) [facility]fieldFERRITIN [id number] 07:31:09 Test Item Value Reference Range Interpretation Comments FERRITIN (test code = 12.2 ng/mL 11.0-264.0 4817225490) SNOW (test code = SNOW) Biotin has been reported to cause a negative bias, interpret results relative to patient's use of biotin. Lab Interpretation (test Normal code = 10085-2) [facility]fieldTHYROID STIMULATING [id number] 07:27:08 Test Item Value Reference Range Interpretation Comments TSH (test code = See_Comment [Automated message] 6681828839) The system [employer] generated this result transmitted ref erence range: 0.45 - 4 .70 mIU/L. The refe rence range was not u sed to interpret this result as normal/abnor mal. Lab Interpretation (test Normal code = 87798-0) [facility]fieldGLYCOSYLATED HEMOGLOBIN (A1C)2020-09-29 07:05:40 Test Item Value Reference Range Interpretation Comments HGB A1C (test code = 5.0 % 4.0-5.7 4548-4) SNOW (test code = SNOW) Reference RangesNormal: <5.7%Prediabetes: 5.7 - 6.4%Diabetes: > 6.5% Lab Interpretation (test Normal code = 06814-8) [facility]fieldURIC [id number] 07:05:35 Test Item Value Reference Range Interpretation Comments URIC ACID (test code = 4912208236) 4.2 mg/dL 2.9-6.0 Lab Interpretation (test code = Normal 94840-1) [facility] [id number] 07:05:30 Test Item Value Reference Range Interpretation Comments CK (test code = 7460736543) 192 U/L 33-194 Lab Interpretation (test code = Normal 10789-1) [facility] [id number] 07:05:30 Test Item Value Reference Range Interpretation Comments NT-proBNP (test code 94 pg/mL See_Comment [Autom ated = 4987523802) message] The system which generated this result transmitted reference range : <=125. The reference range was not used to interpret this result as normal/abnormal . SNOW (test code = SNOW) Biotin has been reported to cause a negative bias, interpret results relative to patient's use of biotin. Lab Interpretation Normal (test code = 31831-0) [facility] 07:04:24 Test Item Value Reference Range Interpretation Comments MAGNESIUM (test code = 7380431678) 1.8 mg/dL 1.7-2.4 Lab Interpretation (test code = Normal 30506-6) [facility]21-[facility]-21 07:03:39 Test Item Value Reference Range Interpretation Comments PHOSPHORUS (test code = 4482752524) 2.2 mg/dL 2.5-5.0 L Lab Interpretation (test code = Abnormal 10785-9) [facility] (91005)(TOTAL CHOLESTEROL, TRIGLYCERIDES, HDL)2020-09-29 06:56:06 Test Item Value Reference Range Interpretation Comments CHOL (test code = 132 mg/dL 120-200 9115225405) HDL (test code = 41 mg/dL >50 L 1718639961) HDLC RATIO (test code = See_Comment [Au tomated message] 1368250808) The system [employer] generated this result transmit josemanuel reference range : <=4.5. The refe rence range was not u sed to interpret th is result as normal/abnormal . TRIG (test code = 73 mg/dL 30-170 0271252940) LDL CHOL (test code = 76 mg/dL See_Comment [Auto mated message] 46109-5) The system [employer] generated this result transmit josemanuel reference range : <=160. The refe rence range was not u sed to interpret th is result as normal/abnormal . VLDL (test code = 15 mg/dL 5-60 9852114932) Lab Interpretation (test Abnormal code = 57068-7) [facility] (ID NOW RAPID TESTING)2020-09-29 06:24:26 Test Item Value Reference Range Interpretation Comments SARS-CoV-2 Rapid ID NOW Not Detected Not Detected (test code = 66382-9) SNOW (test code = SNOW) ID NOW COVID-19 Assay is an isothermal nucleic acid amplification test intended for the qualitative detection of nucleic acid from SARS-CoV-2 viral RNA in nasopharyngeal (DRIVER [employer]ES) specimens. It is used under Emergency Use [...] indicated. Lab Interpretation Normal (test code = 29746-3) [facility] 04:43:31 Test Item Value Reference Range Interpretation Comments APPEARANCE (test code = Clear Clear 5748691143) COLOR (test code = Rosanne Yellow A 0555743765) PH (test code = 4.8-8.0 3491769702) SP GRAVITY (test code = 1.003-1.030 4300569075) GLU U QUAL (test code = Normal Normal 7710745556) BLOOD (test code = Negative Negative 3747969543) KETONES (test code = Negative Negative 5353496738) PROTEIN (test code = 30 mg/dL Negative A 2887-8) UROBILIN (test code = Normal Normal 0811985063) BILIRUBIN (test code = Negative Negative 2591320382) NITRITE (test code = Negative Negative 3005456746) LEUK RANULFO (test code = 25/uL Negative A 8044655744) RBC/HPF (test code = See_Comment [Autom ated message] 0362918271) The system [employer] generated this result transmitted ref erence range: 0 - 3 HP F. The reference range was not used to int erpret this result as normal/abnormal . WBC/HPF (test code = See_Comment [Autom ated message] 1268015584) The system [employer] generated this result transmitted ref erence range: 0 - 5 HP F. The reference range was not used to int erpret this result as normal/abnormal . BACTERIA (test code = Few Negative A 7827231893) MUCOUS (test code = Moderate Negative LPF A 0533503192) SQ EPITH (test code = HPF 0757337157) Lab Interpretation (test Abnormal code = 09769-8) [facility] WITH [id number] 04:39:35 Test Item Value Reference Range Interpretation [...] (test code = 51.3 fL 39.0-49.9 H 84666-3) RDW-CV (test code = 18.1 % 12.0-15.5 H 788-0) PLT (test code = See_Comment L [Automated 777-3) message] The system which generated this result transmit josemanuel reference range : 166 - 358 10*3/ ?L. The reference range was not u sed to interpret th is result as normal/abnormal . MPV (test code = 11.1 fL 9.5-12.9 56581-0) IPF % (test code = 3.7 % 1.3-7.7 Platelet count 9370368456) measured by fluorescence method. NRBC/100 WBC (test See_Comment [Automat ed code = 3805157255) message] The system which generated this result transmit josemanuel reference range : 0.0 - 10.0 /100 WBCs. The reference range was not used to interpret this result as normal/abnormal . NRBC x10^3 (test code <0.01 See_Comment [Auto mated = 8991383345) message] The system which generated this result transmit josemanuel reference range : 10*3/?L. The reference range was not used to interpret this result as normal/abnormal . GRAN MAT (NEUT) % 76.4 % (test code = 770-8) IMM GRAN % (test code 0.80 % = 0216917500) LYMPH % (test code = 9.4 % 736-9) MONO % (test code = 11.3 % 5905-5) EOS % (test code = 1.5 % 713-8) BASO % (test code = 0.6 % 706-2) GRAN MAT x10^3(ANC) 4.07 10*3/uL 1.88-7.09 (test code = 0033664220) IMM GRAN x10^3 (test 0.04 10*3/uL 0.00-0.06 code = 3419081220) LYMPH x10^3 (test 0.50 10*3/uL 1.32-3.29 L code = 731-0) MONO x10^3 (test code 0.60 10*3/uL 0.33-0.92 = 742-7) EOS x10^3 (test code 0.08 10*3/uL 0.03-0.39 = 711-2) BASO x10^3 (test code 0.03 10*3/uL 0.01-0.07 = 704-7) PLT ESTIMATE (test Decreased Normal A code = 9317-9) SNOW (test code = SNOW) Juan slide adgrees to decreased Platelet Lab Interpretation Abnormal (test code = 47466-5) [facility]. METABOLIC PANEL (04453)2020-09-29 04:25:42 Test Item Value Reference Range Interpretation Comments NA (test code = 134 mmol/L 135-145 L 3404716956) K (test code = 3.2 mmol/L 3.5-5.0 L 5492552360) CL (test code = 104 mmol/L 98-108 6336596610) CO2 TOTAL (test code = 24 mmol/L 23-31 8951715852) AGAP (test code = 2-16 8678238018) BUN (test code = 8 mg/dL 7-23 0360301813) GLUCOSE (test code = 105 mg/dL 70-110 1951552228) CREATININE (test code = 0.51 mg/dL 0.50-1.04 2228310084) TOTAL BILI (test code = 2.5 mg/dL 0.1-1.1 H 3341600161) CALCIUM (test code = 8.2 mg/dL 8.6-10.6 L 2895241182) T PROTEIN (test code = 6.3 g/dL 6.3-8.2 4646591517) ALBUMIN (test code = 3.1 g/dL 3.5-5.0 L 2797981528) ALK PHOS (test code = 136 U/L 34-122 H 8180572009) ALTv (test code = 24 U/L 5-35 1742-6) AST(SGOT) (test code = 30 U/L 13-40 5263471652) eGFR (test code = mL/min/1.73m2 9026801415) SNOW (test code = SNOW) Association of [...] tests). Lab Interpretation Abnormal (test code = 30801-5) [facility] 04:25:42 Test Item Value Reference Range Interpretation Comments LIPASE (test code = 8658473861) 102 U/L 0-220 Lab Interpretation (test code = Normal 61210-4) [facility] ([facility]-19) RNA [Presence] in Respiratory specimen by HELENA with probe [id number] 00:49:19 Test Item Value Reference Range Interpretation Comments SARS-CoV-2 (COVID-19) RNA Not detected Not-Detected [Presence] in Respiratory specimen by HELENA with probe detection (test code = 34038-1) 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 employed in a healthcare setting (test code = 71728-1) Whether the patient has symptoms related to condition of interest (test code = 45606-9) Patient was hospitalized because of this condition (test code = 18982-7) Whether the patient was admitted to intensive care unit (ICU) for condition of interest (test code = 45031-5) Whether patient resides in a congregate care setting (test code = 30986-9) BROOKE CHOUSARS-CoV-2 (COVID-19) RNA [Presence] in Respiratory specimen by HELENA with probe [id number] 02:47:43 Test Item Value Reference Range Interpretation Comments SARS-CoV-2 (COVID-19) RNA Not detected Not-Detected [Presence] in Respiratory specimen by HELENA with probe detection (test code = 09242-7) [facility] CHOUSARS-CoV-2 (COVID-19) RNA [Presence] in Respiratory specimen by HELENA with probe [id number] 16:32:37 Test Item Value Reference Range Interpretation Comments SARS-CoV-2 (COVID-19) RNA Not detected Not-Detected [Presence] in Respiratory specimen by HELENA with probe detection (test code = 60674-8) [facility] CHOUSARS-CoV-2 (COVID-19) RNA [Presence] in Respiratory specimen by HELENA with probe [id number] 05:29:57 Test Item Value Reference Range Interpretation Comments SARS-CoV-2 (COVID-19) RNA Not detected Not-Detected [Presence] in Respiratory specimen by HELENA with probe detection (test code = 86859-7) [facility] KYLE WESTCT ABDOMEN PELVIS W [id number] 19:27:49 1. ?No evidence of small bowel [...] cholecystectomy. No biliarydilatation.PANCREAS: No ductal dilation or masses.S PLEEN: The spleen is enlarged at 20 cm.ADRENAL [...] noted on the prior study with no associate dcolonic wall thickening.VESSELS: The main portal vein is dilated at 17 mm.LYMPH NODES: No lymphadenopathy.PERITONEUM AND RETROPERITONEUM: Trace ascites is seen.BONES AND SOFT TISSUES: No suspicious lytic or sclerotic bony lesions.IMPRESSION1. No evidence of small bowel obstruction.2. 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 Nonspecific mesenteric inflammation in the pericecal region with changesof prior appendectomy. There is no associated wall thickening in theadjacent bowel. This could be infectious and appears similar on the priorstudy.Preliminary Report Di ctated by Resident: Frandy Watson, MD., have reviewed this study and agree with the abovereport.[facility] WITH [id number] 11:56:00 Test Item Value Reference Range Interpretation [...] (test code = 58.0 fL 39-49.9 H 19373-0) RDW-CV (test code = 16.6 % 12-15.5 H 788-0) PLT (test code = See_Comment LL [Automated 777-3) message] The sy stem which generated this result transmitted reference range : 166 - 358 10*3/ ?L. The reference r davi was not used to interpret this result as normal/abnormal . MPV (test code = 11.0 fL 9.5-12.9 09738-5) IPF % (test code = 5.5 % 1.3-7.7 Platelet count 9286548819) measured by fluorescence method. NRBC/100 WBC (test See_Comment [Automat ed code = 3109853828) message] The system which generated this result transmitted reference range : 0.0 - 10.0 /100 WBCs. The refer ence range was not u sed to interpret th is result as normal/abnormal . NRBC x10^3 (test code <0.01 See_Comment [Auto mated = 5131048304) message] The s ystem which generated this result transmitted reference range : 10*3/?L. The reference range was not used to interpret this result as normal/abnormal . GRAN MAT (NEUT) % 57.6 % (test code = 770-8) IMM GRAN % (test code 0.00 % = 9094708902) LYMPH % (test code = 27.1 % 736-9) MONO % (test code = 11.8 % 5905-5) EOS % (test code = 3.1 % 713-8) BASO % (test code = 0.4 % 706-2) GRAN MAT x10^3(ANC) 1.47 10*3/uL 1.88-7.09 L (test code = 0287750349) IMM GRAN x10^3 (test <0.03 0-0.06 code = 1389283884) LYMPH x10^3 (test code 0.69 10*3/uL 1.32-3.29 L = 731-0) MONO x10^3 (test code 0.30 10*3/uL 0.33-0.92 L = 742-7) EOS x10^3 (test code = 0.08 10*3/uL 0.03-0.39 711-2) BASO x10^3 (test code <0.03 0.01-0.07 = 704-7) Lab Interpretation Abnormal (test code = 52115-3) [facility]. METABOLIC PANEL (29149)2019-08-11 10:42:00 Test Item Value Reference Range Interpretation Comments NA (test code = 138 mmol/L 135-145 8311322300) K (test code = 3.8 mmol/L 3.5-5 1206010598) CL (test code = 108 mmol/L 98-108 0194966558) CO2 TOTAL (test code = 24 mmol/L 23-31 6356827209) AGAP (test code = 2-16 3832138573) BUN (test code = 10 mg/dL 7-23 6011542269) GLUCOSE (test code = 108 mg/dL 70-110 0575191023) CREATININE (test code = 0.43 mg/dL 0.5-1.04 L 0783812149) TOTAL BILI (test code = 2.5 mg/dL 0.1-1.1 H 9953335918) CALCIUM (test code = 8.4 mg/dL 8.6-10.6 L 1394305528) T PROTEIN (test code = 6.1 g/dL 6.3-8.2 L 7379490110) ALBUMIN (test code = 3.1 g/dL 3.5-5 L 3578007014) ALK PHOS (test code = 102 U/L 34-122 0590174946) ALTv (test code = 52 U/L 5-35 H 1742-6) AST(SGOT) (test code = 63 U/L 13-40 H 8690038881) eGFR Calculation mL/min/1.73m2 (Non-) (test code = 4058398507) eGFR Calculation mL/min/1.73m2 () (test code = 7904239786) SNOW (test code = SNOW) Association of [...] tests). Lab Interpretation Abnormal (test code = 65515-4) [facility] SMALL BOWEL [id number] 02:08:11 1. ?No bowel obstruction. No fluoroscopic [...] obstruction.No fluoroscopic images or fluoroscopic time.RL 6[address] UnH[facility] PearlandSEDIMENTATION [id number] 16:19:00 Test Item Value Reference Range Interpretation Comments ESR (test code = See_Comment [Automated message] 1271535705) The system [employer] generated this result transmitted ref erence range: 0 - 20 m m/HR. The reference r davi was not used to interpret this result as normal/abnor mal. Lab Interpretation (test Normal code = 38396-0) [facility] - To confirm nasogastric tube [...] reviewed this study and agree with the abovereport.[facility] WITH [id number] 13:48:00 Test Item Value Reference Range Interpretation Comments WBC (test code = See_Comment L [Automated 0590-2) message] The system which generated this result transmit josemanuel reference range : 4.30 - 11.10 10*3/?L. The reference range was not used to interpret this result as normal/abnormal . RBC (test code = See_Comment L [Automated 179-8) message] The system which generated this result [...] (test code = 58.4 fL 39-49.9 H 94281-9) RDW-CV (test code = 16.7 % 12-15.5 H 788-0) PLT (test code = See_Comment LL [Automated 777-3) message] The system which generated this result transmit josemanuel reference range : 166 - 358 10*3/ ?L. The reference range was not u sed to interpret th is result as normal/abnormal . MPV (test code = 10.5 fL 9.5-12.9 65476-6) IPF % (test code = 3.0 % 1.3-7.7 Platelet count 4430264035) measured by fluorescence method. NRBC/100 WBC (test See_Comment [Automat ed code = 8349988153) message] The system which generated this result transmit josemanuel reference range : 0.0 - 10.0 /100 WBCs. The reference range was not used to interpret this result as normal/abnormal . NRBC x10^3 (test code <0.01 See_Comment [Auto mated = 4407255786) message] The system which generated this result transmit josemanuel reference range : 10*3/?L. The reference range was not used to interpret this result as normal/abnormal . GRAN MAT (NEUT) % 57.1 % (test code = 770-8) IMM GRAN % (test code 0.40 % = 6848650952) LYMPH % (test code = 28.1 % 736-9) MONO % (test code = 10.4 % 5905-5) EOS % (test code = 3.6 % 713-8) BASO % (test code = 0.4 % 706-2) GRAN MAT x10^3(ANC) 1.42 10*3/uL 1.88-7.09 L (test code = 9582556811) IMM GRAN x10^3 (test <0.03 0-0.06 code = 2020183249) LYMPH x10^3 (test 0.70 10*3/uL 1.32-3.29 L code = 731-0) MONO x10^3 (test code 0.26 10*3/uL 0.33-0.92 L = 742-7) EOS x10^3 (test code 0.09 10*3/uL 0.03-0.39 = 711-2) BASO x10^3 (test code <0.03 0.01-0.07 = 704-7) PLT ESTIMATE (test Critically Normal AA code = 9317-9) Decreased Lab Interpretation Abnormal (test code = 36715-3) [facility]YCOSYLATED HEMOGLOBIN (A1C)2019-08-10 13:13:00 Test Item Value Reference [...] Indicated Lab Interpretation Normal (test code = 59845-7) [facility]field[facility]YROID STIMULATING [id number] 13:05:00 Test Item Value Reference Range Interpretation Comments TSH (test code = See_Comment [Automated message] 1839083143) The system [employer] generated this result transmitted ref erence range: 0.45 - 4 .70 mIU/L. The refe rence range was not u sed to interpret this result as normal/abnor mal. Lab Interpretation (test Normal code = 83815-3) [facility]fieldPREGNANCY TEST, [id number] 13:04:00 Test Item Value Reference Range Interpretation Comments PREG SERUM (test code Negative = 3662961200) SNOW (test code = SNOW) Less than 10 IU/L. ?If low titer or ectopic is suspected, resubmit specimen in 48-72 hours. [facility]field[facility]EL (42214)(TOTAL CHOLESTEROL, TRIGLYCERIDES, HDL)2019-08-10 12:36:00 Test Item Value Reference Range Interpretation Comments CHOL (test code = 158 mg/dL 120-200 6375219573) HDL (test code = 47 mg/dL >50 L 6796500270) HDLC RATIO (test code = See_Comment [Au tomated message] 1190907060) The system [employer] generated this result transmit josemanuel reference range : <=4.5. The refe rence range was not u sed to interpret th is result as normal/abnormal . TRIG (test code = 51 mg/dL 30-170 6587540664) LDL CHOL (test code = 101 mg/dL See_Comment [Auto mated message] 59977-6) The system [employer] generated this result transmit josemanuel reference range : <=160. The refe rence range was not u sed to interpret th is result as normal/abnormal . VLDL (test code = 10 mg/dL 5-60 5642119510) Lab Interpretation (test Abnormal code = 23995-7) [facility]. METABOLIC PANEL (91955)2019-08-10 12:35:00 Test Item Value Reference Range Interpretation Comments NA (test code = 139 mmol/L 135-145 8187614759) K (test code = 3.9 mmol/L 3.5-5 8341976970) CL (test code = 109 mmol/L 98-108 H 9365430118) CO2 TOTAL (test code = 25 mmol/L 23-31 8874575438) AGAP (test code = 2-16 8656872713) BUN (test code = 15 mg/dL 7-23 5260401075) GLUCOSE (test code = 218 mg/dL 70-110 H 5231692062) CREATININE (test code = 0.40 mg/dL 0.5-1.04 L 9261478059) TOTAL BILI (test code = 2.0 mg/dL 0.1-1.1 H 9122491227) CALCIUM (test code = 8.5 mg/dL 8.6-10.6 L 8604264320) T PROTEIN (test code = 6.2 g/dL 6.3-8.2 L 6157650694) ALBUMIN (test code = 3.1 g/dL 3.5-5 L 6413103926) ALK PHOS (test code = 99 U/L 34-122 1705186740) ALTv (test code = 42 U/L 5-35 H 1742-6) AST(SGOT) (test code = 49 U/L 13-40 H 9228422298) eGFR Calculation mL/min/1.73m2 (Non-) (test code = 1687293821) eGFR Calculation mL/min/1.73m2 () (test code = 5799008367) SNOW (test code = SNOW) Association of [...] tests). Lab Interpretation Abnormal (test code = 79057-7) [facility]2020-[facility]-01 12:35:00 Test Item Value Reference Range Interpretation Comments MAGNESIUM (test code = 5743822635) 1.6 mg/dL 1.7-2.4 L Lab Interpretation (test code = Abnormal 28093-3) [facility]US2020-05-01 12:35:00 Test Item Value Reference Range Interpretation Comments PHOSPHORUS (test code = 6107555049) 3.6 mg/dL 2.5-5 Lab Interpretation (test code = Normal 19224-6) [facility]CREATINE [id number] 12:35:00 Test Item Value Reference Range Interpretation Comments CK (test code = 0715754332) 123 U/L 33-194 Lab Interpretation (test code = Normal 94272-5) [facility]2020-05-01 12:35:00 Test Item Value Reference Range Interpretation Comments LIPASE (test code = 0044791044) 141 U/L 0-220 Lab Interpretation (test code = Normal 94877-2) [facility]2020-05-01 12:34:00 Test Item Value Reference Range Interpretation Comments LIN (test code = 9675575774) 73 U/L 35-110 Lab Interpretation (test code = Normal 47561-8) [facility]fieldPROTHROMBIN TIME / [id number] 12:07:00 Test Item Value Reference Range Interpretation Comments PROTIME PATIENT (test See_Comment H [Auto mated message] code = 5964-2) The system [employer] generated this result transmitted ref erence range: 12.0 - 1 4.7 Seconds. The reference range was not used to int erpret this result as normal/abnormal . INR (test code = 6301-6) Nor mal INR <1.1; Warfarin Therap eutic range 2.0 to 3. 0 or 2.5 to 3.5, dep ending upon the indica tions. Lab Interpretation (test Abnormal code = 81594-5) [facility]fieldCORONAVIRUS COVID-19 [id number] 10:18:00 Test Item Value Reference Range Interpretation Comments SARS-CoV-2 (test code = Not Detected Not Detected 93695-7) SNOW (test code = SNOW) ID NOW COVID-19 Assay is an isothermal nucleic acid amplification test intended for the qualitative detection of nucleic acid from SARS-CoV-2 viral RNA in nasopharyngeal (DR[employer]) specimens. It is used under Emergency Use [...] indicated. Lab Interpretation Normal (test code = 05277-7) [facility], [facility]ST, 1 VIEW, NON [id number] 07:50:00Reason for exam:->SOBShould this be performed at the bedside?->Yes FINAL REPORT CLINICAL HISTORY: SOB TECHNIQUE: 1 view of the chest. COMPARISON: None IMPRESSION: There is pulmonary vascular congestion with prominent lung markings bilaterally. Subpulmonic pleural effusions cannot be excluded. The cardiomediastinal silhouette is magnified by technique. Signed: Franky Hoyt MDReport Verified Date/Time: 10/03/2018 07:50:47 Reading Location: [facility] Radiology Reading Room [id number] 07:37:00 Test Item Value Reference Range Interpretation Comments MAGNESIUM (BEAKER) (test code = 1.6 mg/dL 1.6-2.6 627) BASIC METABOLIC [id number] 07:37:00 Test Item Value Reference Range Interpretation [...] DIALYSIS PATIEN TS. Specimen slightly ictericHEPATIC FUNCTION [id number] 07:37:00 Test Item Value Reference Range Interpretation [...] 35 U/L 6-55 347) Specimen slightly ictericPROTHROMBIN TIME/[id number] 06:25:00 Test Item Value Reference Range Interpretation [...] mechanical heart valves.CBC W/PLT COUNT & AUTO [id number] 06:16:00 Test Item Value Reference Range Interpretation [...] = 3438) Received comment: User comments: Slide comments:[id number] 05:58:00 Test Item Value Reference Range Interpretation Comments MAGNESIUM (BEAKER) (test code = 1.6 mg/dL 1.6-2.6 627) BASIC METABOLIC [id number] 05:58:00 Test Item Value Reference Range Interpretation [...] DIALYSIS PATIEN TS. Specimen slightly ictericHEPATIC FUNCTION [id number] 05:58:00 Test Item Value Reference Range Interpretation [...] 39 U/L 6-55 347) Specimen slightly ictericPROTHROMBIN TIME/[id number] 05:26:00 Test Item Value Reference Range Interpretation [...] mechanical heart valves.CBC W/PLT COUNT & AUTO [id number] 05:20:00 Test Item Value Reference Range Interpretation [...] WBC 0-0 (test code = 413) VITAMIN [id number] 06:57:00 Test Item Value Reference Range Interpretation Comments VITAMIN B12 (BEAKER) (test code = 178 pg/mL 213-816 L 774) [id number] 06:57:00 Test Item Value Reference Range Interpretation Comments FERRITIN (BEAKER) (test code = 361) 21 ng/mL 5-275 FOLATE, [id number] 06:57:00 Test Item Value Reference Range Interpretation [...] 28 % 20-55 (test code = 2590) [id number] 05:59:00 Test Item Value Reference Range Interpretation Comments MAGNESIUM (BEAKER) (test code = 1.7 mg/dL 1.6-2.6 627) BASIC METABOLIC [id number] 05:59:00 Test Item Value Reference Range Interpretation [...] FOR DIALYSIS PATIEN TS. Specimen slightly ictericLIPID [id number] 05:59:00 Test Item Value Reference Range Interpretation [...] Very High >=190 Specimen slightly ictericHEPATIC FUNCTION [id number] 05:59:00 Test Item Value Reference Range Interpretation [...] = 41 U/L 6-55 347) Specimen slightly [id number] 05:59:00 Test Item Value Reference Range Interpretation Comments LIPASE (BEAKER) (test code = 749) 35 U/L 8-78 Specimen slightly ictericPROTHROMBIN TIME/[id number] 05:58:00 Test Item Value Reference Range Interpretation [...] mechanical heart valves.CBC W/PLT COUNT & AUTO [id number] 05:37:00 Test Item Value Reference Range Interpretation [...] PERCENT (BEAKER) (test code = 2801) POCT-HEMOGLOBIN [id number] 06:12:00 Test Item Value Reference Range Interpretation Comments POC-HEMOGLOBIN METER 8.6 g/dL 12.0-15.0 L TESTED AT [facility] 6720 (BEAKER) (test code = [place] [address] 1539)"
[2022-03-25 06:02] LABS: Absolute Lymphocytes (CBC) 0.4 K/uL (0.7-4.9); Hematocrit 28.5 % (36.0-45.0); Lymphocytes % 22.8 % (15.3-44.8); MCV 83.5 fL (80-100); MPV 7.3 fL (7.6-11.3); RBC Red Blood Cell Count 3.42 M/uL (3.86-4.86)
[2022-03-25 06:17] LABS: Bilirubin Total 1.3 mg/dL (0.2-1.0); Potassium 3.5 mmol/L (3.5-5.1); Protein, Total 6.3 g/dL (6.4-8.2)
[2022-03-25] MEDS ORDERED: PROMETHAZINE INJ 25 MG/ML AMP ONE (06:20)
[2022-03-25] MEDS ORDERED: DIPHENHYDRAMINE 50 MG/ML VIAL ONE (06:20)
[2022-03-25] MEDS ORDERED: FENTANYL CITR 100 MCG/2 ML ONE (06:20)
--- NOTE | 2022-03-25 07:14 | ER ---
Nurse's Notes [facility] Name: Zenaida Goss Age: 61 yrs Sex: Female : 1960 Arrival Date: 03/25/2022 Time: 05:01 Bed 6 Private MD: Diagnosis: Pain in right leg;Pain in left leg Presentation: 03/25 05:15 Chief complaint: Patient states: both of her legs have been aching so bad the last 3 bb days she is unable to sleep the pain is worse at night and worse in the right leg. Coronavirus screen: At this time, the client does not indicate any symptoms associated with coronavirus-19. Ebola Screen: No symptoms or risks identified at this time. Initial Sepsis Screen: Does the patient meet any 2 criteria? No. Patient's initial sepsis screen is negative. Does the patient have a suspected source of infection? No. Patient's initial sepsis screen is negative. Risk Assessment: Do you want to hurt yourself or someone else? Patient reports no desire to harm self or others. Onset of symptoms was March 22, 2022. 05:15 Method Of Arrival: Ambulatory 05:15 Acuity: TANK 3 bb Triage Assessment: 05:19 General: Appears in no apparent distress. well groomed, well developed, Behavior is kl calm, cooperative. Pain: Complains of pain in bilateral lower extremities Pain currently is 10 out of 10 on a pain scale. EENT: No deficits noted. No signs and/or symptoms were reported regarding the EENT system. Neuro: No deficits noted. Cardiovascular: No deficits noted. Capillary refill < 3 seconds Pulses are all present. Respiratory: No deficits noted. GI: No deficits noted. No signs and/or symptoms were reported involving the gastrointestinal system. : No deficits noted. No signs and/or symptoms were reported regarding the genitourinary system. Derm: No deficits noted. No signs and/or symptoms reported regarding the dermatologic system. Musculoskeletal: Reports pain in bilateral lower extremities. Historical: - Allergies: 05:21 Demerol; kl 05:21 Dilaudid; kl 05:21 Morphine (Anaphylaxis); kl 05:21 Zofran; kl 05:18 Demerol; bb 05:18 Dilaudid; bb 05:18 Morphine (Anaphylaxis); bb 05:18 Zofran; bb - Home Meds: 05:18 Spironolactone Oral [Active]; Lasix Oral [Active]; Lactulose Oral [Active]; rifaximin bb oral [Active]; Protonix Oral [Active]; Creon oral [Active]; - PMHx: 05:21 Anemia; breast cancer; Cirrhosis; ESOPHAGEAL VARACIES; fatty liver; Heart Murmur; kl Pancreatitis; polyp; 05:18 Anemia; breast cancer; Cirrhosis; ESOPHAGEAL VARACIES; fatty liver; Heart Murmur; bb Pancreatitis; polyp; - PSHx: 05:21 Appendectomy; Cholecystectomy; Lumpectomy of breast; right knee surgery; right kl lymphectomy; Total abdominal hysterectomy; 05:18 Appendectomy; Cholecystectomy; Lumpectomy of breast; right knee surgery; right bb lymphectomy; Total abdominal hysterectomy; - Immunization history:: Adult Immunizations up to date, Moderna x 3. - Social history:: Smoking status: unknown Smoking status: unknown. Screenin:49 Abuse screen: Denies threats or abuse. Denies injuries from another. Nutritional ha1 screening: No deficits noted. Tuberculosis screening: No symptoms or risk factors identified. 07:23 [facility] ED Fall Risk Assessment (Adult) History of falling in the last 3 months, bp including since admission No falls in past 3 months (0 pts). Humpty Dumpty Scale Fall Assessment Tool (age< 18yrs) Age 13 years and above (1 pt). Fall Risk No fall in past 12 months (0 pts). Assessment: 05:42 General: Appears uncomfortable, Behavior is calm, cooperative. Neuro: Level of ha1 Consciousness is awake, alert, obeys commands, Oriented to person, place, time, situation. Cardiovascular: Patient's skin is warm and dry. Respiratory: Airway is patent Trachea midline Respiratory effort is even, unlabored, Respiratory pattern is regular, symmetrical. GI: No signs and/or symptoms were reported involving the gastrointestinal system. Abdomen is non-distended, obese. : No signs and/or symptoms were reported regarding the genitourinary system. EENT: No deficits noted. No signs and/or symptoms were reported regarding the EENT system. Musculoskeletal: Circulation, motion, and sensation intact. Reports pain on legs. 05:42 Pain: Complains of pain in right leg and left leg Pain does not radiate. Pain currently ha1 is 10 out of 10 on a pain scale. Alleviated by medications. 06:39 Reassessment: Patient and/or family updated on plan of care and expected duration. Pain ha1 level reassessed. Patient is alert, oriented x 3, equal unlabored respirations, skin warm/dry/pink. Patient states symptoms have improved. 07:00 Reassessment: RECD REPORT FROM ALEJANDRA REYES. 61YO HF P/W BLE PAIN. ALL INITIAL FINDINGS bp UNREMARKABLE. 07:21 Reassessment: PT DC HOME AMBULATORY. bp Vital Signs: 05:15 BP 113 / 53; Pulse 84; Resp 20 S; Temp 98.2(O); Pulse Ox 100% on R/A; Weight 111.58 kg bb (M); Height 5 ft. 4 in. (162.56 cm); Pain 10/10; 05:25 BP 113 / 53; Pulse 84; Resp 19 S; Pulse Ox 100% on R/A; ha1 06:29 BP 114 / 49; Pulse 78; Resp 18; Pulse Ox 100% ; kl 07:21 BP 99 / 63; Pulse 67; Resp 16; Pulse Ox 97% ; bp 05:15 Body Mass Index 42.23 (111.58 kg, 162.56 cm) bb ED Course: 05:01 Patient arrived in ED. es 05:18 Triage completed. bb 05:18 Arm band placed on Patient placed in an exam room, on a stretcher, on pulse oximetry. bb 05:19 Ingrid Voss, RN is Primary Nurse. ha1 05:30 Lenny Enrique MD is Attending Physician. kdr 06:05 Notified ED physician of a critical lab result(s). WBCs of 1.9 Dr Enrique notified. bb 06:20 Inserted saline lock: 24 gauge in left wrist, using aseptic technique. kl 06:29 No provider procedures requiring assistance completed. kl 07:22 IV discontinued, intact, bleeding controlled, No redness/swelling at site. Pressure bp dressing applied. 07:23 Patient has correct armband on for positive identification. Bed in low position. Call bp light in reach. Side rails up X2. Administered Medications: 06:20 Drug: fentaNYL (PF) 25 mcg Route: IVP; Site: left wrist; kl 07:42 Follow up: Response: No adverse reaction ap3 07:42 Follow up: Response: Pain is decreased ap3 06:24 Drug: Benadryl (diphenhydrAMINE) 25 mg Route: IVP; Site: left wrist; kl 07:41 Follow up: Response: No adverse reaction ap3 06:28 Drug: Phenergan (promethazine) 12.5 mg Route: IVP; Site: left wrist; kl 07:42 Follow up: Response: No adverse reaction ap3 07:41 Drug: Flexeril (cyclobenzaprine) 10 mg Route: PO; ap3 Medication: 07:23 VIS not applicable for this client. bp Outcome: 07:13 Discharge ordered by . kdr 07:22 Discharged to home ambulatory. bp 07:22 Condition: stable 07:22 Discharge instructions given to patient, Instructed on discharge instructions, follow up and referral plans. medication usage, Demonstrated understanding of instructions, follow-up care, medications, Prescriptions given X 2. 07:50 Patient left the ED. bp Signatures: Sayra Long RN RN Lenny Han MD MD kdr Salyer, Edna es Ballard, Brenda, RN RN bb Peltier, Brian, RN RN bp Prokisch, Amanda, RN RN ap3 Ingrid Voss RN RN ha1 Corrections: (The following items were deleted from the chart) 05:48 05:42 General: Appears uncomfortable, Behavior is calm, cooperative, ha1 ha1 05:48 05:42 Pain: ha1 ha1
--- NOTE | 2022-03-25 07:14 | EDPHYS ---
Physician Documentation [facility] Name: Zenaida Goss Age: 61 yrs Sex: Female : 1960 Arrival Date: 03/25/2022 Time: 05:01 Bed 6 Private MD: ED Physician Lenny Enrique HPI: 03/25 07:39 This 61 yrs old Female presents to ER via Ambulatory with complaints of Leg kdr Pain. 07:39 The patient presents with pain, that is acute. The complaints affect the. Context: The kdr problem was sustained at home. Onset: The symptoms/episode began/occurred 1 week(s) ago. Modifying factors: The symptoms are alleviated by nothing. the symptoms are aggravated by nothing. Associated signs and symptoms: The patient has no apparent associated signs or symptoms. Treatment prior to arrival includes: no previous treatment. Severity of symptoms: At their worst the symptoms were moderate, in the emergency department the symptoms are unchanged. The patient has not experienced similar symptoms in the past. The patient has not recently seen a physician. Historical: - Allergies: 05:21 Demerol; kl 05:21 Dilaudid; kl 05:21 Morphine (Anaphylaxis); kl 05:21 Zofran; kl 05:18 Demerol; bb 05:18 Dilaudid; bb 05:18 Morphine (Anaphylaxis); bb 05:18 Zofran; bb - Home Meds: 05:18 Spironolactone Oral [Active]; Lasix Oral [Active]; Lactulose Oral [Active]; rifaximin bb oral [Active]; Protonix Oral [Active]; Creon oral [Active]; - PMHx: 05:21 Anemia; breast cancer; Cirrhosis; ESOPHAGEAL VARACIES; fatty liver; Heart Murmur; kl Pancreatitis; polyp; 05:18 Anemia; breast cancer; Cirrhosis; ESOPHAGEAL VARACIES; fatty liver; Heart Murmur; bb Pancreatitis; polyp; - PSHx: 05:21 Appendectomy; Cholecystectomy; Lumpectomy of breast; right knee surgery; right kl lymphectomy; Total abdominal hysterectomy; 05:18 Appendectomy; Cholecystectomy; Lumpectomy of breast; right knee surgery; right bb lymphectomy; Total abdominal hysterectomy; - Immunization history:: Adult Immunizations up to date, Moderna x 3. - Social history:: Smoking status: unknown Smoking status: unknown. ROS: 07:39 Constitutional: Negative for fever, chills, and weight loss, Eyes: Negative for injury, kdr pain, redness, and discharge, ENT: Negative for injury, pain, and discharge, Neck: Negative for injury, pain, and swelling, Cardiovascular: Negative for chest pain, palpitations, and edema, Respiratory: Negative for shortness of breath, cough, wheezing, and pleuritic chest pain, Abdomen/GI: Negative for abdominal pain, nausea, vomiting, diarrhea, and constipation, Back: Negative for injury and pain, : Negative for injury, bleeding, discharge, and swelling, Skin: Negative for injury, rash, and discoloration, Neuro: Negative for headache, weakness, numbness, tingling, and seizure activity. Psych: Negative for depression, anxiety, suicide ideation, homicidal ideation, and hallucinations, Allergy/Immunology: Negative for hives, rash, and allergies, Endocrine: Negative for neck swelling, polydipsia, polyuria, polyphagia, and marked weight changes, Hematologic/Lymphatic: Negative for swollen nodes, abnormal bleeding, and unusual bruising. 07:39 MS/extremity: Positive for pain, Cramping. Exam: 07:39 Constitutional: This is a well developed, well nourished patient who is awake, alert, kdr and in mild distress. Head/Face: Normocephalic, atraumatic. Eyes: Pupils equal round and reactive to light, extra-ocular motions intact. Lids and lashes normal. Conjunctiva and sclera are non-icteric and not injected. Cornea within normal limits. Periorbital areas with no swelling, redness, or edema. Neck: Trachea midline, no thyromegaly or masses palpated, and no cervical lymphadenopathy. Supple, full range of motion without nuchal rigidity, or vertebral point tenderness. No Meningismus. Chest/axilla: Normal chest wall appearance and motion. Nontender with no deformity. No lesions are appreciated. Cardiovascular: Regular rate and rhythm with a normal S1 and S2. No gallops, murmurs, or rubs. Normal PMI, no JVD. No pulse deficits. Respiratory: Lungs have equal breath sounds bilaterally, clear to auscultation and percussion. No rales, rhonchi or wheezes noted. No increased work of breathing, no retractions or nasal flaring. Abdomen/GI: Soft, non-tender, with normal bowel sounds. No distension or tympany. No guarding or rebound. No evidence of tenderness throughout. Back: No spinal tenderness. No costovertebral tenderness. Full range of motion. Skin: Warm, dry with normal turgor. Normal color with no rashes, no lesions, and no evidence of cellulitis. MS/ Extremity: Pulses equal, no cyanosis. Neurovascular intact. Full, normal range of motion. Neuro: Awake and alert, GCS 15, oriented to person, place, time, and situation. Cranial nerves II-XII grossly intact. Motor strength 5/5 in all extremities. Sensory grossly intact. Cerebellar exam normal. Normal gait. Psych: Awake, alert, with orientation to person, place and time. Behavior, mood, and affect are within normal limits. Vital Signs: 05:15 BP 113 / 53; Pulse 84; Resp 20 S; Temp 98.2(O); Pulse Ox 100% on R/A; Weight 111.58 kg bb (M); Height 5 ft. 4 in. (162.56 cm); Pain 10/10; 05:25 BP 113 / 53; Pulse 84; Resp 19 S; Pulse Ox 100% on R/A; ha1 06:29 BP 114 / 49; Pulse 78; Resp 18; Pulse Ox 100% ; kl 07:21 BP 99 / 63; Pulse 67; Resp 16; Pulse Ox 97% ; bp 05:15 Body Mass Index 42.23 (111.58 kg, 162.56 cm) bb MDM: 07:13 Patient medically screened. kdr 07:39 Data reviewed: vital signs, nurses notes, lab test result(s), radiologic studies. kdr Counseling: I had a detailed discussion with the patient and/or guardian regarding: the historical points, exam findings, and any diagnostic results supporting the discharge/admit diagnosis, lab results, radiology results, the need for outpatient follow up. 03/25 05:31 Order name: CBC with Diff; Complete Time: 07:39 kdr 03/25 05:31 Order name: Comprehensive Metabolic Panel; Complete Time: 07:08 kdr 03/25 05:31 Order name: Magnesium; Complete Time: 07:08 kdr 03/25 07:35 Order name: CBC Smear Scan; Complete Time: 07:39 EDMS Administered Medications: 06:20 Drug: fentaNYL (PF) 25 mcg Route: IVP; Site: left wrist; kl 07:42 Follow up: Response: No adverse reaction ap3 07:42 Follow up: Response: Pain is decreased ap3 06:24 Drug: Benadryl (diphenhydrAMINE) 25 mg Route: IVP; Site: left wrist; kl 07:41 Follow up: Response: No adverse reaction ap3 06:28 Drug: Phenergan (promethazine) 12.5 mg Route: IVP; Site: left wrist; kl 07:42 Follow up: Response: No adverse reaction ap3 07:41 Drug: Flexeril (cyclobenzaprine) 10 mg Route: PO; ap3 Disposition Summary: 03/25/22 07:13 Discharge Ordered Location: Home kdr Condition: Stable kdr Problem: new kdr Symptoms: have improved kdr Diagnosis - Pain in right leg kdr - Pain in left leg kdr Followup: kdr - With: Private Physician - When: 2 - 3 days - Reason: If symptoms return, Further diagnostic work-up, Recheck today's complaints, Continuance of care, Re-evaluation by your physician Discharge Instructions: - Discharge Summary Sheet kdr - Leg Cramps kdr - Musculoskeletal Pain kdr Forms: - Medication Reconciliation Form kdr - Thank You Letter kdr Prescriptions: - Tramadol 50 mg Oral Tablet - take 1 tablet by ORAL route every 8 hours as needed; 12 tablet; Refills: 0, kdr Product Selection Permitted - Cyclobenzaprine 10 mg Oral Tablet - take 1 tablet by ORAL route every 8 hours As needed; 12 tablet; Refills: 0, kdr Product Selection Permitted Signatures: Dispatcher [employer] Sayra Bearden RN RN kl Rittger, Kevin, MD MD kdr Ballard, Brenda, RN RN bb Prokisch, Amanda, RN RN ap3
[2022-03-25 07:35] LABS: Anisocytosis 1+; Blood Morphology Comment NOTED (NOT SEEN); Platelet Estimate DECR; White Blood Cell Scan OK (OK)
[2022-03-25] MEDS ORDERED: CYCLOBENZAPRINE 10 MG TAB ONE (07:42)
[2022-03-25 07:55] VITALS: TEMP 98.2
[2022-03-25 07:59] VITALS: BP 99/63; O2SAT 97
== END 2022-03-25 07:50 | disposition home or self-care (01) ==
LOC: SUPCPDRO 04:53 → ER 04:53
DX: M79.605 Pain in left leg (principal); M79.604 Pain in right leg; Z88.5 Allergy status to narcotic agent; Z88.8 Allergy status to other drugs, medicaments and biological substances
CPT/HCPCS: 85025; 36415; 83735; 80053; 96375; 96374; 99284; J2550; J1200; J3010

== ENCOUNTER 2022-04-06 06:09 | Emergency (ER) | payer OTHER ==
--- OUTSIDE RECORDS SUMMARY | 2022-04-06 06:23 | XMS REPORT | Continuity of Care Document ---
:1960 Author Organization [facility] t Address [address] [place] [address] Care Team Providers Name Role Phone Madhu Miranda Primary Care Physician Unavailable Annalise Souza Attending Clinician Unavailable Madhu Miranda Attending Clinician Unavailable Dre REYES, Rhoda Attending Clinician Unavailable Stevo Hoskins DO Attending Clinician Jeremy Sandoval MD Attending Clinician FLORIAN AYERS Attending Clinician Unavailable Florian Ayers DO Attending Clinician Charline HENSLEY, [facility] Hodan Attending Clinician Bebeto Ward MD Attending Clinician Nakia Cruz MD Attending Clinician Aziza Cordero MD Attending Clinician Umang HENSLEY Bebeto Sanchez Attending Clinician Verónica HENSLEY, Carolin Diaz Attending Clinician Amandeep HENSLEY, Vandana Mae Attending Clinician [phone] Thomas HENSLEY, Elias Attending Clinician Karlo HENSLEY, Handy Blanco Attending Clinician [phone] Nafisa HENSLEY, Jefferson Lisa Attending Clinician Jose HENSLEY, Willian Snowden Attending Clinician Ronnie HENSLEY, Mahnaz Attending Clinician Feng Burgos Attending Clinician Mayda Aleman MD, Sharita Attending Clinician [phone] Maite HENSLEY, Anand Baron Attending Clinician Sukhdev KOENIG Attending Clinician Unavailable Sukhdev Fajardo Attending Clinician Doctor Unassigned, [place] Attending Clinician Unavailable [facility]opedic Attending [...] Dulce Miller Attending Clinician Nasrin REYES, Jovanny oSuza Attending Clinician Unavailable SHAINA PINTO Attending Clinician Unavailable AVI DAVEY Attending Clinician Unavailable DRE MAYER Attending Clinician Unavailable JEREMY SANDOAVL Admitting Clinician Unavailable FLORIAN AYERS Admitting Clinician Unavailable BEBETO WARD Admitting Clinician Unavailable MD NAKIA CRUZ Admitting Clinician Unavailable SHANNARERDO JEWELLH ZACKARY Admitting Clinician Unavailable Sukhdev KOENIG Admitting Clinician [...] Expiration Date [facility] [id number] 2019 CHOICE 00:00:00 Problems Condition Condition Condition [...] Added automatic ally from request for surgery [id number] Gastritis Gastritis Disease Active Met hodi without [...] Added automatic ally from request for surgery [id number] Pancolitis Pancolitis Disease Active U nivers 6-21 ity of 00:00: [place] 00 [facility] Arrhythmia Arrhythmia Disease Active U nivers 6-21 ity of 00:00: [place] [facility] Ventricula Ventricula Disease Active U nivers r r 6- [place] tachy[place] [facility] Other Other Disease Active Univers cirrhosis cirrhosis - ity of of liver of liver 00:00: [place] [facility] ANAYA ANAYA Disease Active Univers (nonalcoho (nonalcoho 09-29 it y of lic lic 00:00: [place] ste[place]he[place] steatohepa 00 Me dical titis) titis) Branch Hypokalemi Hypokalemi Disease Active U nivers a a 6- ity of 00:00: [place] [facility] Acute Acute Disease Active Univers colitis colitis 09-29 ity of 00:00: [place] 00 [facility] Abdominal Abdominal Disease Active [...] of - [facility] right knee right knee [facility] Primary Primary Diagnosis Active 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 of itis of - [facility] left knee left knee [facility] Allergies, Adverse Reactions, Alerts Allergy Allergy [...] n Reaction Available Spiri t - [facility] Social History Social Habit Start Date Stop Date Quantity Comments Source History [facility] A[facility] spital Alcohol Std Drinks History [facility] Kaylynn Carey spital Alcohol Binge Exposure to 2022-02-05 2022-02-15 Not sure University SARS-CoV-2 00:00:00 13:41:00 [facility] (event) Branch Alcohol intake 2022-02-05 2022-02-05 Lifetime [facility] 00:00:00 00:00:00 non-drinker (finding) History [facility] 2020-03-19 2020-03-19 1 [facility] sp[facility] Alcohol Frequency 00:00:00 00:00:00 Tobacco use and 2016-06-30 2016-06-[address] [facility] Tri kes exposure 00:00:00 00:00:00 [facility] Sex Assigned At [birth year] [facility] 00:00:00 00:00:00 Smoking Status Start Date Stop Date Source Never smoked tobacco [facility] Medications Ordered Filled Start Stop [...] day packet for 30 days. psyllium 2021-04- No 1{packe Q48H Take 1 Met triston haddad [...] times a day. lipase-prot 2021-04 Yes 1{capsu Q.[id number] Take 1 [facility] ease-amylas 1-19 le} [id number] capsule by st e (CREON) 18:47: 3D [...] times a day. lipase-prot 2021-04 Yes 1{capsu Q.[id number] Take 1 [facility] ease-amylas 1-19 le} [id number] capsule by st e (CREON) 18:47: 3D mouth 3 Hospi ta 36,000-114, 48 (three) l 000- times a 180,000 day. unit capsule,del ayed release(DR/ EC) methocarbam 2021-04 Yes 500mg Q.25D Take 1 Me thodi oL 1-[address] (ROBAXIN) 18:47: (500 mg Hospi ta 500 MG 48 total) by l tablet mouth 4 (four) times a day. lipase-prot 2021-04 Yes 1{capsu Q.[id number] Take 1 [facility] ease-amylas 1-19 le} [id number] capsule by st e (CREON) 18:47: 3D [...] Tue02/16/22 at 1200, Routine iopamidol 2021-04- No [id number] 74mL 74 mL, U heleners (ISOVUE 04-17 Intravenou ity o f 370-500 mL) 21:30: 21:30 s, ONCE, 1 [place] injection 00 :00 dose, On Medica l 74 mL Mon Branch 02/15/22 at 1530, Routine ondansetron 2021-04- No 4mg 4 mg, Slow Univers (ZOFRAN 04-17 11- IV Push, ity of (PF)) 21:00: 20:19 ONCE, 1 [place] injection 4 00 :00 dose, On Medi molly mg Mon Branch 02/15/22 at 1500, Routine ondansetron 2021-04 Yes [id number] 4mg Take 1 Univers 4 mg 1-07 tablet by ity of disintegrat 00:00: mouth [place] ing tablet 00 every 8 Medica l (eight) Branch hours as needed for Nausea and Vomiting (N/V). dicyclomine 2021-04 Yes [id number] 20mg Take 1 Univers 20 mg 1-07 tablet by ity of tablet 00:00: mouth 4 [place] 00 (four) Medical times Branch daily. loperamide 2021-04 Yes [id number] 2mg Take 1 U nivers 2 mg -07 capsule by ity of capsule 00:00: mouth [...] times a day for 30 days. pantoprazol 2021-04- No 40mg QD Take 1 Met hodi e 0-27 -27 tablet (40 st (PROTONIX) 00:00: 05:59 mg total) H ospita 40 MG EC 00 :00 by mouth l tablet daily for 30 days. spironolact 2021-04- No 50mg Q.5D Take 1 Met hodi one 0-27 11-27 tablet (50 st (ALDACTONE) 00:00: 05:59 mg total) Hospita 50 MG 00 :00 by mouth 2 l tablet (two) times a day for 30 days. sucralfate 2021-04- No 1g Q.25D Take 10 mL Methodi (CARAFATE) 0-27 11-27 ([address] 100 mg/mL 00:00: 05:59 total) by Ho spita suspension 00 :00 mouth 4 l (four) times a day before meals and nightly for 30 days. zinc 2021-04- No 1{capsu QD Take 1 Methodi sulfate 0-27 11-27 le} capsule by st (ZINCATE) 00:00: 05:59 mouth Hospit a 50 mg zinc 00 :00 daily for l (220 mg) 30 days. capsule furosemide 2021-04- No 40mg Q.5D Take 1 Meth dimitri (Lasix) 40 0-27 11-27 tablet (40 st mg tablet 00:00: 05:59 mg total) Ho spita 00 :00 by mouth 2 l (two) times a day for 30 days. lactulose 2021-04- No 20g Q.25D Take 30 mL Methodi 20 gram/30 0-07 03-27 ([address] mL solution 00:00: 05:59 total) by Hospita 00 :00 mouth 4 l (four) times a day for 30 days. pantoprazol 2021-04- No 40mg QD Take 1 Met hodi e 0-27 -27 tablet (40 st (PROTONIX) 00:00: 05:59 mg total) H ospita 40 MG EC 00 :00 by mouth l tablet daily for 30 days. spironolact 2021-04- No 50mg Q.5D Take 1 Met hodi one 0-27 11-27 tablet (50 st (ALDACTONE) 00:00: 05:59 mg total) Hospita 50 MG 00 :00 by mouth 2 l tablet (two) times a day for 30 days. sucralfate 2021-04- No 1g Q.25D Take 10 mL [facility] (CARAFATE) 0-27 11-27 ([address] 100 mg/mL 00:00: 05:59 total) by Ho spita suspension 00 :00 mouth 4 l (four) times a day before meals and nightly for 30 days. zinc 2021-04- No 1{capsu QD Take 1 Methodi sulfate 0-27 11-27 le} capsule by st (ZINCATE) 00:00: 05:59 mouth Hospit a 50 mg zinc 00 :00 daily for l (220 mg) 30 days. capsule furosemide 2021-04 No 40mg Q.5D Take 1 Meth dimitri (Lasix) 40 03-07 tablet (40 st mg tablet 00:00: 05:59 mg total) Ho spita 00 :00 by mouth 2 l (two) times a day for 30 days. lactulose 2021-04 No 20g Q.25D Take 30 mL Methodi 20 gram/30 03-07 ([address] mL solution 00:00: 05:59 total) by Hospita 00 :00 mouth 4 l (four) times a day for 30 days. pantoprazol 2021-04 No 40mg QD Take 1 Met hodi e -03-07 tablet (40 st (PROTONIX) 00:00: 05:59 mg total) H ospita 40 MG EC 00 :00 by mouth l tablet daily for 30 days. spironolact 2021-04 No 50mg Q.5D Take 1 Met hodi one 03-07 tablet (50 st (ALDACTONE) 00:00: 05:59 mg total) Hospita 50 MG 00 :00 by mouth 2 l tablet (two) times a day for 30 days. sucralfate 2021-04 No 1g Q.25D Take 10 mL Methodi (CARAFATE) 03-07 ([address] 100 mg/mL 00:00: 05:59 total) by Ho spita suspension 00 :00 mouth 4 l (four) times a day before meals and nightly for 30 days. zinc 2021-04 No 1{capsu QD Take 1 Methodi sulfate 03-07 le} capsule by st (ZINCATE) 00:00: 05:59 mouth Hospit a 50 mg zinc 00 :00 daily for l (220 mg) 30 days. capsule HYDROcodone 2021-04 No [id number] 1{tbl} Q4H Take 1 Methodi -acetaminop 002-[address] hen (NORCO) 00:00: 05:59 mouth [facility] 10-325 mg 00 :00 every 4 l per tablet (four) hours as needed for severe pain for up to 10 days .acute pain. Max Daily Amount: 6 tablets HYDROcodone 2021-04- No [id number] 1{tbl} Q4H Take 1 Methodi -acetaminop 0-27 11-[address] hen (NORCO) 00:00: 05:59 mouth [facility] 10-325 mg 00 :00 every 4 l per tablet (four) hours as needed for severe pain for up to 10 days .acute pain. Max Daily Amount: 6 tablets HYDROcodone 2021-04- No [id number] 1{tbl} Q4H Take 1 Methodi -acetaminop 0-27 [...] mouth 2 (two) times a day. riFAXimin 2022-0 Yes 550mg Q.5D Take 1 Metho di (XIFAXAN) 9-[address] 550 mg 19:11: (550 mg Hospita tablet 33 total) by l mouth 2 (two) times a day. polyethylen 2021-2021- No 17g QD Take 17 g Method[facility] e glycol 01-[address] (MIRALAX) 00:00: 04:59 daily for Ho spita 17 gram 00 :00 30 days. l packet polyethylen 2021-2021- No 17g QD Take 17 g Methodi e glycol 9-27 10-[address] (MIRALAX) 00:00: 04:59 daily for Ho spita 17 gram 00 :00 30 days. l packet polyethylen 2021-2021- No 17g QD Take 17 g Methodi e glycol 9-27 10-[address] (MIRALAX) 00:00: 04:59 daily for Ho spita 17 gram 00 :00 30 days. l packet polyethylen 2021-2021- No 17g QD Take 17 g Methodi e glycol 9-27 10-[address] (MIRALAX) 00:00: 04:59 daily for Ho spita 17 gram 00 :00 30 days. l packet polyethylen 2021- No 17g QD Take 17 g Methodi e glycol 9-27 10-[address] (MIRALAX) 00:00: 04:59 daily for Ho spita 17 gram 00 :00 30 days. l packet lactulose 2021- No 20g Q.25D Take 30 [...] 50mg Q.5D Take 1 Met hodi one 9-26 10-27 tablet (50 st (ALDACTONE) 00:00: 04:59 [...] 01-04 tablet (40 st mg tablet 00:00: 04:59 mg total) Ho spita 00 :00 by mouth 2 l (two) times a day for 30 days. pantoprazol 2021- No 40mg QD Take 1 Met hodi e 01-04- tablet (40 st (PROTONIX) 00:00: 04:59 mg total) H ospita 40 MG EC 00 :00 by mouth l tablet daily for 30 days. spironolact 2021- No 50mg Q.5D Take 1 Met hodi one 01-04 tablet (50 st (ALDACTONE) 00:00: 04:59 mg [...] meals and nightly for 30 days. zinc 2022021- No 1{capsu QD Take 1 Methodi sulfate 9-26 10-27 le} capsule by st (ZINCATE) 00:00: 04:59 mouth Hospit a 50 mg zinc 00 :00 daily for l (220 mg) 30 days. capsule lactulose 2021- No 20g Q.25D Take 30 mL Methodi 20 gram/30 9-26 10-27 ([address] mL solution 00:00: 00:00 total) by Hospita 00 :00 mouth 4 l (four) times a day for 30 days. furosemide 2021- No 40mg Q.5D Take 1 Meth dimitri (Lasix) 40 9- 10-27 tablet (40 st mg tablet 00:00: 00:00 mg total) Ho spita 00 :00 by mouth 2 l (two) times a day for 30 days. pantoprazol 2021- No 40mg QD Take 1 Met hodi e - 10- tablet (40 st (PROTONIX) 00:00: 00:00 mg total) H ospita 40 MG EC 00 :00 by mouth l tablet daily for 30 days. spironolact 2021- No 50mg Q.5D Take 1 Met hodi one 9- 10-27 tablet (50 st (ALDACTONE) 00:00: 00:00 mg total) Hospita 50 MG 00 :00 by mouth 2 l tablet (two) times a day for 30 days. sucralfate 2021- No 1g Q.25D Take 10 mL [facility] (CARAFATE) 9-26 10-27 ([address] 100 mg/mL 00:00: 00:00 total) by Ho spita suspension 00 :00 mouth 4 l (four) times a day before meals and nightly for 30 days. zinc 2021- No 1{capsu QD Take 1 Methodi sulfate 9-26 10-27 le} capsule by st (ZINCATE) 00:00: 00:00 mouth Hospit a 50 mg zinc 00 :00 daily for l (220 mg) 30 days. capsule lactulose 2021- No 20g Q.25D Take 30 mL Methodi 20 gram/30 9-26 10-27 ([address] mL solution 00:00: 00:00 [...] 40mg QD Take 1 Met hodi e 01-04 tablet (40 st (PROTONIX) 00:00: 00:00 mg [...] times a day. pancrelipas 2021- No 2{capsu Q.[id number] Take 2 Methodi e, 12-18 le} [id number] capsules st lipase-prot 00:00: 04:59 3D by mouth 3 Hospita ease-amylas 00 :00 (three) l e, (CREON) times a 6,000-19,00 day with 0 -30,000 meals for unit 30 days. capsule,del ayed release(DR/ EC) capsule methocarbam 2021- No 500mg Q.[id number] Take 1 [facility] oL 12-[id number] (ROBAXIN) 00:00: 04:59 3D (500 mg [facility] 500 MG 00 :00 total) by l tablet mouth 3 (three) times a day as needed (abdominal cramping) for up to 30 days. pancrelipas 2021- No 2{capsu Q.[id number] Take 2 Methodi e, 12-18 le} [id number] capsules st lipase-prot 00:00: 04:59 3D by mouth 3 [facility]osp[facility] ease-amylas 00 :00 (three) l e, (CREON) times a 6,000-19,00 day with 0 -30,000 meals for unit 30 days. capsule,del ayed release(DR/ EC) capsule methocarbam 2021- No 500mg Q.95100723 Take 1 [facility] oL 12-[id number] (ROBAXIN) 00:00: 04:59 3D (500 mg [facility] 500 MG 00 :00 total) by l tablet mouth 3 (three) times a day as needed (abdominal cramping) for up to 30 days. pancrelipas 2021- No 2{capsu Q.97646379 Take 2 Methodi e, 12-18 le} [id number] capsules st lipase-prot 00:00: 04:59 3D by mouth 3 [facility] ease-amylas 00 :00 (three) l e, (CREON) times a 6,000-19,00 day with 0 -30,000 meals for unit 30 days. capsule,del ayed release(DR/ EC) capsule methocarbam 2021- No 500mg Q.[id number] Take 1 [facility] oL 12-[id number] (ROBAXIN) 00:00: 04:59 3D (500 mg [facility] 500 MG 00 :00 total) by l tablet mouth 3 (three) times a day as needed (abdominal cramping) for up to 30 days. pancrelipas 2021- No 2{capsu Q.[id number] Take 2 Methodi e, 12-18 le} [id number] capsules st lipase-prot 00:00: 04:59 3D by mouth 3 [facility] ease-amylas 00 :00 (three) l e, (CREON) times a 6,000-19,00 day with 0 -30,000 meals for unit 30 days. capsule,del ayed release(DR/ EC) capsule methocarbam 2021- No 500mg Q.43190402 Take 1 [facility]i oL 12-[id number] (ROBAXIN) 00:00: 04:59 3D (500 mg [facility] 500 MG 00 :00 total) by l tablet mouth 3 (three) times a day as needed (abdominal cramping) for up to 30 days. pancrelipas 2021- No 2{capsu Q.[id number] Take 2 Methodi e, 12-18 le} [id number] capsules st lipase-prot 00:00: 04:59 3D by mouth 3 [facility] ease-amylas 00 :00 (three) l e, (CREON) times a 6,000-19,00 day with 0 -30,000 meals for unit 30 days. capsule,del ayed release(DR/ EC) capsule methocarbam 2021- No 500mg Q.16884765 Take 1 [facility] oL 12-[id number] (ROBAXIN) 00:00: 04:59 3D (500 mg [facility] 500 MG 00 :00 total) by l tablet mouth 3 (three) times a day as needed (abdominal cramping) for up to 30 days. pancrelipas 2021- No 2{capsu Q.[id number] Take 2 Methodi e, 12-18 le} [id number] capsules st lipase-prot 00:00: 04:59 3D by mouth 3 [facility]osp[facility] ease-amylas 00 :00 (three) l e, (CREON) times a 6,000-19,00 day with 0 -30,000 meals for unit 30 days. capsule,del ayed release(DR/ EC) capsule methocarbam 2021- No 500mg Q.08280799 Take 1 [facility] oL 12-[id number] (ROBAXIN) 00:00: 04:59 3D (500 mg [facility] 500 MG 00 :00 total) by l tablet mouth 3 (three) times a day as needed (abdominal cramping) for up to 30 days. HYDROcodone 2022-0 1{tbl} Q6H Take 1 [facility] -acetaminop 12-[address] [facility] (Humagade) 00:00: 00:00 mouth [facility] 10-325 mg 00 :00 every 6 l per tablet (six) hours as needed for severe pain for up to 10 days .acute pain. Max Daily Amount: 4 tablets HYDROcodone 2021-0 2021- No 1{tbl} Q6H Take 1 [facility] -acetaminop 12-[address] [facility] (Humagade) 00:00: 00:00 mouth [facility] 10-325 mg 00 :00 every 6 l per tablet (six) hours as needed for severe pain for up to 10 days .acute pain. Max Daily Amount: 4 tablets HYDROcodone 2021-0 2021- No 1{tbl} Q6H Take 1 Method[facility] -acetaminop 12-18 tablet by [facility] (Humagade) 00:00: 00:00 mouth [facility] 10-325 mg 00 :00 every 6 l per tablet (six) hours as needed for severe pain for up to 10 days .acute pain. Max Daily Amount: 4 tablets HYDROcodone 2021-0 2021- No 1{tbl} Q6H Take 1 Method[facility] -acetaminop 12-18 tablet by [facility] (Humagade) 00:00: 00:00 mouth [facility] 10-325 mg 00 :00 every 6 l per tablet (six) hours as needed for severe pain for up to 10 days .acute pain. Max Daily Amount: 4 tablets HYDROcodone 2021-0 2021- No 1{tbl} Q6H Take 1 Method[facility] -acetaminop 12-[address] [facility] (Humagade) 00:00: 00:00 mouth [facility] 10-325 mg 00 :00 every 6 l per tablet (six) hours as needed for severe pain for up to 10 days .acute pain. Max Daily Amount: 4 tablets HYDROcodone 2-0 2021- No 1{tbl} Q6H Take 1 [facility] -acetaminop 12-18- tablet by st [facility] (Humagade) 00:00: 04:59 mouth [facility] 10-325 mg [...] 2 (two) times a day. pantoprazol 2021-0 2- No 40mg QD Take 1 Met hodi e -04 12-25 tablet (40 st (PROTONIX) 14:06: 00:00 mg total) H ospita 40 MG EC 05 :00 by mouth l tablet daily. pantoprazol 2021-0 2- No 40mg QD Take 1 Met hodi e 12-04-25 tablet (40 st (PROTONIX) 14:06: 00:00 mg total) H ospita 40 MG EC 05 :00 by mouth l tablet daily. pantoprazol 2021-0 2- No 40mg QD Take 1 Met hodi e 12-04-25 tablet (40 st (PROTONIX) 14:06: 00:00 mg total) H ospita 40 MG EC 05 :00 by mouth l tablet daily. pantoprazol 2021-0 2- No 40mg QD Take 1 Met hodi e 12-04-25 tablet (40 st (PROTONIX) 14:06: 00:00 mg total) H ospita 40 MG EC 05 :00 by mouth l tablet daily. pantoprazol 2021-0 2- No 40mg QD Take 1 Met hodi e 8-25 tablet (40 st (PROTONIX) 14:06: 00:00 mg total) H ospita 40 MG EC 05 :00 by mouth l tablet daily. pantoprazol 2021-0 2- No 40mg QD Take 1 Met hodi e 8- 08-25 tablet (40 st (PROTONIX) 14:06: 00:00 mg total) H ospita 40 MG EC 05 :00 by mouth l tablet daily. pantoprazol 2021-0 2- No 40mg QD Take [...] vomiting for up to 30 days. lactulose 2022-0 2022- No 20g Q24H Take 30 mL [...] vomiting for up to 30 days. lactulose 2022-0 2022- No 20g Q24H Take 30 mL [...] vomiting for up to 30 days. lactulose 2022-0 2022- No 20g Q24H Take 30 mL M ethodi 10 gram/15 12-03 ([address] mL (15 mL) 00:00: 00:00 total) by H ospita solution 00 :00 mouth l daily as needed (2 to 3 soft stools per day) for up to 30 days. ondansetron 2021-0 202- No 4mg Q8H Take 1 Met hodi [...] day) for up to 30 days. ondansetron 2021-2021- No 4mg Q8H Take 1 Met hodi ODT 12-03 tablet (4 st (ZOFRAN-ODT 00:00: 00:00 mg total) Hospita ) 4 MG 00 :00 by mouth l disintegrat every 8 ing tablet (eight) hours as needed for nausea or vomiting for up to 30 days. furosemide 2021-0 2021- No 40mg [...] tablet daily for 30 days. spironolact 2021-0 2021- No [...] and nightly for 30 days. furosemide 2021-0 2- No [...] tablet daily for 30 days. spironolact 2021-0 2021- No 50mg Q.5D Take 1 Met hodi one 12-03- tablet (50 st (ALDACTONE) 00:00: 00:00 mg total) Hospita 50 MG 00 :00 by mouth 2 l tablet (two) times a day for 30 days. sucralfate 2021-2021- No 1g Q.25D Take 10 mL Methodi [...] a day for 30 days. pantoprazol 2021-0 2021- No 40mg QD Take 1 Met hodi e 12-03- tablet (40 st (PROTONIX) 00:00: 00:00 mg total) H ospita 40 MG EC 00 :00 by mouth l tablet daily for 30 days. spironolact 2021-0 2- No 50mg Q.5D Take 1 Met hodi [...] nightly for 30 days. HYDROcodone 2021- No 1{tbl} Q6H Take 1 Methodi -acetaminop 8-25 09-[address] [facility] (Humagade) 00:00: 00:00 mouth [facility] 10-325 mg 00 :00 every 6 l per tablet (six) hours as needed for severe pain for up to 10 days .acute pain. Max Daily Amount: 4 tablets HYDROcodone 2021-0 2021- No 1{tbl} Q6H Take 1 [facility]i -acetaminop 8-25 09-[address] hen (Humagade) 00:00: 00:00 mouth [facility] 10-325 mg 00 :00 every 6 l per tablet (six) hours as needed for severe pain for up to 10 days .acute pain. Max Daily Amount: 4 tablets HYDROcodone 2021-0 2021- No 1{tbl} Q6H Take 1 [facility] -acetaminop 8-25 -[address] [facility] (Humagade) 00:00: 00:00 mouth [facility] 10-325 mg 00 :00 every 6 l per tablet (six) hours as needed for severe pain for up to 10 days .acute pain. Max Daily Amount: 4 tablets HYDROcodone 2021-0 2021- No 1{tbl} Q6H Take 1 Methodi -acetaminop 8-25 -[address] hen (Humagade) 00:00: 00:00 mouth [facility] 10-325 mg 00 :00 every 6 l per tablet (six) hours as needed for severe pain for up to 10 days .acute pain. Max Daily Amount: 4 tablets HYDROcodone 2021-0 2021- No 1{tbl} Q6H Take 1 Methodi -acetaminop 8-25 -[address] hen (Humagade) 00:00: 00:00 mouth [facility] 10-325 mg 00 :00 every 6 l per tablet (six) hours as needed for severe pain for up to 10 days .acute pain. Max Daily Amount: 4 tablets HYDROcodone 2021-0 2021- No 1{tbl} Q6H Take 1 Methodi -acetaminop 8-25 09-[address] hen (Humagade) 00:00: 00:00 mouth [facility] 10-325 mg 00 :00 every 6 l per tablet (six) hours as needed for severe pain for up to 10 days .acute pain. Max Daily Amount: 4 [place] [id number] 1{tbl} Q6H Take 1 [facility] -acetaminop 8-25 09-[address] [facility] (NORCO) 00:00: 04:59 mouth [facility] 10-325 mg 00 :00 every 6 l per tablet (six) hours as needed for severe pain for up to 10 days .acute pain. Max Daily Amount: 4 tablets pancrelipas 2021- No 1{capsu Q.[id number] Take 1 Methodi e, 8-18 08-18 le} [id number] capsule by st lipase-prot 20:41: 00:00 3D mouth 3 Ho spita ease-amylas 22 :00 (three) l e, (CREOND) times a 12,000-38,0 day with 00 -60,000 meals. unit capsule,del ayed release(DR/ EC) capsule pancrelipas 2021- No 1{capsu Q.[id number] Take 1 Methodi e, 8 08-18 le} [id number] capsule by st lipase-prot 20:41: 00:00 3D mouth 3 Ho spita ease-amylas 22 :00 (three) l e, (CREOND) times a 12,000-38,0 day with 00 -60,000 meals. unit capsule,del ayed release(DR/ EC) capsule pancrelipas 2021- No 1{capsu Q.[id number] Take 1 Methodi e, 8 08-18 le} [id number] capsule [address] lipase-prot 20:41: 00:00 3D mouth 3 Ho spita ease-amylas 22 :00 (three) l e, (CREOND) times a 12,000-38,0 day with 00 -60,000 meals. unit capsule,del ayed release(DR/ EC) capsule pancrelipas 2021- No 1{capsu Q.[id number] Take 1 Methodi e, 8-18 08-18 le} [id number] capsule by st lipase-prot 20:41: 00:00 3D mouth 3 [facility] ease-amylas 22 :00 (three) l e, (CREOND) times a 12,000-38,0 day with 00 -60,000 meals. unit capsule,del ayed release(DR/ EC) capsule pancrelipas 2021-0 2021- No 1{capsu Q.[id number] Take 1 Methodi e, 8- 08-18 le} [id number] capsule by st lipase-prot 20:41: 00:00 3D mouth 3 [facility] ease-amylas 22 :00 (three) l e, (CREOND) times a 12,000-38,0 day with 00 -60,000 meals. unit capsule,del ayed release(DR/ EC) capsule pancrelipas 2021-2021- No 1{capsu Q.[id number] Take 1 Methodi e, 8- 08-18 le} [id number] capsule by st lipase-prot 20:41: 00:00 3D mouth 3 [facility] ease-amylas 22 :00 (three) l e, (CREOND) times a 12,000-38,0 day with 00 -60,000 meals. unit capsule,del ayed release(DR/ EC) capsule pancrelipas 2021-2021- No 1{capsu Q.[id number] Take 1 Methodi e, 8 08-18 le} [id number] capsule by st lipase-prot 20:41: 00:00 3D mouth 3 [facility] ease-amylas 22 :00 (three) l e, (CREOND) times a 12,000-38,0 day with 00 -60,000 meals. unit capsule,del ayed release(DR/ EC) capsule spironolact 2021- No 25mg QD Take 25 mg [facility] one -26 10-[address] (ALDACTONE) 14:44: 00:00 daily. Hos alvaro 25 MG 06 :00 l tablet furosemide 2021- No 20mg QD Take 20 mg [facility] (LASIX) 20 -18 -[address] mg tablet 14:44: 00:00 daily. Hospi ta 06 :00 l spironolact 2021- No 25mg QD Take 25 mg [facility] one -18 -[address] (ALDACTONE) 14:44: 00:00 daily. [...] 06 :00 l spironolact 2021-0 2- No 50mg Q.5D Take 1 Met hodi [...] a day for 30 days. spironolact 2021-0 2- No 50mg Q.5D Take 1 Met [facility] one 10-26 08-25 tablet (50 st (ALDACTONE) 00:00: 00:00 mg total) Hospita 50 MG 00 :00 by mouth 2 l tablet (two) times a day for 30 days. furosemide 2021-2- No 40mg Q.5D Take 1 Meth dimitri [...] Q.5D Take 1 Meth dimitri (Lasix) 40 -18 08-25 tablet (40 st mg tablet 00:00: [...] a day for 30 days. spironolact 2021-0 2- No 50mg Q.5D Take 1 Met hodi [...] a day for 30 days. spironolact 2021-0 2- No 50mg Q.5D Take 1 Met hodi [...] times a day for 30 days. acetaminoph No 1{tbl} 1 tablet, Univers en-codeine 09-29 [...] Branch 09/29/21 at 0100, Routine naproxen Yes [id number] 500mg Take 1 Univers (NAPROSYN) 6-20 9104 tablet by ity of 500 mg 00:00: mouth 2 [place] tablet 00 (two) Medical times Branch daily with meals. naproxen Yes [id number] 500mg Take 1 Univers (NAPROSYN) 6-20 9104 [...] 04/02/21 at 1445, VERN ondansetron 2020-04 Yes [id number] 4mg Take 1 Univers 4 mg -23 tablet by ity of disintegrat 00:00: mouth [place] ing tablet 00 every 8 Medica l (eight) Branch hours as needed for Nausea and Vomiting (N/V). ondansetron 2020-04 Yes [id number] 4mg Take 1 Univers 4 mg 2-23 tablet by ity of disintegrat 00:00: mouth [place] ing tablet 00 every 8 Medica l (eight) Branch hours as needed for Nausea and Vomiting (N/V). ondansetron 2020-04 Yes [id number] 4mg Take 1 Univers 4 mg 2-23 tablet by ity of disintegrat 00:00: mouth [place] ing tablet 00 every 8 Medica l (eight) Branch hours as needed for Nausea and Vomiting (N/V). ondansetron 2020-04 Yes [id number] 4mg Take 1 Univers 4 mg 2-23 tablet by ity of disintegrat 00:00: mouth [place] ing tablet 00 every 8 Medica l (eight) Branch hours as needed for Nausea and Vomiting (N/V). ondansetron 2020-04 Yes [id number] 4mg Take 1 Univers 4 mg 2-23 [...] No 296mL Take 1 Meth dimitri citrate 04-[address] solution 00:00: 00:00 (296 mL Hospi ta 00 :00 total) by l mouth once as needed (constipat ion) for up to 1 dose. magnesium 2020-04- No 296mL Take 1 Meth dimitri citrate 04-[address] solution 00:00: 00:00 (296 mL Hospi ta 00 :00 total) by l mouth once as needed (constipat ion) for up to 1 dose. magnesium 2020-04- No 296mL Take 1 Meth dimitri citrate 04-[address] solution 00:00: 00:00 (296 mL Hospi ta 00 :00 total) by l mouth once as needed (constipat ion) for up to 1 dose. magnesium 2020-04- No 296mL Take 1 Meth dimitri citrate 04-[address] solution 00:00: 00:00 (296 mL [...] soft stools per day). cholecalcif 2020- No [id number] 2000U Take 2 Univers nuno, 6-26 07-27 tablets by ity of vitamin D3, 00:00: 04:59 [place] 25 mcg 00 :00 daily for Medical (1,000 30 days. Branch unit) tablet cyanocobala 2020- No [id number] 1000ug inject 1 Univers min 1,000 6-26 07-27 mL under ity o f mcg/mL 00:00: 04:59 the skin [place] injection 00 :00 every 24 Medica l (twenty-fo Branch ur) hours for 30 days. KCL 20 mEq 2020- No [id number] 20meq Take 1 Univers tablet 6-26 07-27 tablet by ity of 00:00: 04:59 mouth [place] 00 :00 daily for Medical 30 days. Branch cholecalcif 2020- No [id number] 2000U Take 2 Univers nuno, - 07-27 tablets by ity of vitamin D3, 00:00: 04:59 mouth [place] 25 mcg 00 :00 daily for Medical (1,000 30 days. Branch unit) tablet cyanocobala 2020- No [id number] 1000ug inject 1 Univers min 1,000 6- 07-27 mL under ity o f mcg/mL 00:00: 04:59 the skin [place] injection 00 :00 every 24 Medica l (twenty-fo Branch ur) hours for 30 days. KCL 20 mEq 2020- No [id number] 20meq Take 1 Univers tablet -03 11-27 tablet by ity of 00:00: 04:59 mouth [...] by mouth ity of (PROTONIX) 13:10: daily. [place] 40 mg EC 25 Medical tablet Branch lactulose Yes 30mL Take 30 mL Un marline 10 gram/15 6-25 by mouth ity o f mL oral 13:10: daily. [place] solution 25 Medical Branch pantoprazol Yes 40mg Take 40 mg Univers e 6-25 by mouth ity of (PROTONIX) 13:10: daily. [place] 40 mg EC 25 Medical tablet Branch proMETHazin Yes 12.5mg 12.5 mg, Univers e 6-25 Oral, ity of (PHENERGAN) 04:17: Q6HPRN, [place] as tablet 12.5 34 Starting Medi molly mg Geraldine Branch 10/02/20 at 2317, Until Discontinu ed, Routine, Nausea and Vomiting (N/V), N/V unresponsi ve to Ondansetro n proMETHazin Yes [id number] 12.5mg Take 1 Univers e 12.5 mg 6-25 tablet by ity o f tablet 00:00: mouth [place] 00 every 6 Medical (six) Branch hours as needed for Nausea and Vomiting (N/V) or N/V unresponsi ve to Ondansetro n. proMETHazin Yes [id number] 12.5mg Take 1 Univers e 12.5 mg 6-25 tablet by ity o f tablet 00:00: mouth [place] 00 every 6 Medical (six) Branch hours as needed for Nausea and Vomiting (N/V) or N/V unresponsi ve to Ondansetro n. proMETHazin Yes [id number] 12.5mg Take 1 Univers e 12.5 mg 6-25 tablet by ity o f tablet 00:00: mouth [place] 00 every 6 Medical (six) Branch hours as needed for Nausea and Vomiting (N/V) or N/V unresponsi ve to Ondansetro n. proMETHazin Yes [id number] 12.5mg Take 1 Univers e 12.5 mg 6-25 tablet by ity o f tablet 00:00: mouth [place] 00 every 6 Medical (six) Branch hours as needed for Nausea and Vomiting (N/V) or N/V unresponsi ve to Ondansetro n. proMETHazin Yes [id number] 12.5mg Take 1 Univers e 12.5 mg 6-25 tablet by ity o f tablet 00:00: mouth [place] 00 every 6 Medical (six) Branch hours as needed for Nausea and Vomiting (N/V) or N/V unresponsi ve to Ondansetro n. proMETHazin Yes [id number] 12.5mg Take 1 Univers e 12.5 mg 6-25 tablet by ity o f tablet 00:00: mouth [place] 00 every 6 Medical (six) Branch hours as needed for Nausea and Vomiting (N/V) or N/V unresponsi ve to Ondansetro n. proMETHazin Yes [id number] 12.5mg Take 1 Univers e 12.5 mg 6-25 tablet by ity o f tablet 00:00: mouth [place] 00 every 6 Medical (six) Branch hours as needed for Nausea and Vomiting (N/V) or N/V unresponsi ve to Ondansetro n. proMETHazin Yes [id number] 12.5mg Take 1 Univers e 12.5 mg 6-25 tablet by ity o f tablet 00:00: mouth [place] 00 every 6 Medical (six) Branch hours as needed for Nausea and Vomiting (N/V) or N/V unresponsi ve to Ondansetro n. proMETHazin Yes [id number] 12.5mg Take 1 Univers e 12.5 mg 6-25 tablet by ity o f tablet 00:00: mouth [place] 00 every 6 Medical (six) Branch hours as needed for Nausea and Vomiting (N/V) or N/V unresponsi ve to Ondansetro n. proMETHazin Yes [id number] 12.5mg Take 1 Univers e 12.5 mg 6-25 tablet by ity o f tablet 00:00: mouth [place] 00 every 6 Medical (six) Branch hours as needed for Nausea and Vomiting (N/V) or N/V unresponsi ve to Ondansetro n. furosemide 2020- No [id number] 40mg Take 1 Univers 40 mg 6-25 07-26 tablet by ity of tablet 00:00: 04:59 mouth [place] 00 :00 every Medical morning Branch and evening for 30 days. lipase-prot 2020- No [id number] 2{capsu Take 2 Univers ease-amylas 6-25 07-26 le} capsules ity of e 00:00: 04:59 by mouth 3 [place] 12,000-38,0 00 :00 (three) Medic al 00 -60,000 times Branch unit daily with capsule meals for 30 days. lactobacill 2020- No [id number] .5mg Take 1 Univers us 6-25 07-26 tablet by ity of acidophilus 00:00: 04:59 mouth 2 [place] 00 :00 (two) Medical times Branch daily for 30 days. furosemide 2020- No [id number] 40mg Take 1 Univers 40 mg 6-25 07-26 tablet by ity of tablet 00:00: 04:59 mouth [place] 00 :00 every Medical morning Branch and evening for 30 days. lipase-prot 2020- No [id number] 2{capsu Take 2 Univers ease-amylas 6-25 07-26 le} capsules ity of e 00:00: 04:59 by mouth 3 [place] 12,000-38,0 00 :00 (three) Medic al 00 -60,000 times Branch unit daily with capsule meals for 30 days. lactobacill 2020- No [id number] .5mg Take 1 Univers us 6-25 07-26 tablet by ity of acidophilus 00:00: 04:59 mouth 2 [place] 00 :00 (two) Medical times Branch daily for 30 days. vancomycin 2020- No [id number] 125mg Take 1 Univers 125 mg 6-25 07-06 capsule by ity of capsule 00:00: 04:59 mouth 4 [place] 00 :00 (four) Medical times Branch daily for 10 days. vancomycin 2020- No [id number] 125mg Take 1 Univers 125 mg 6-25 [...] Indication s: acute pain cephALEXin 2020- No [id number] 500mg Take 1 Univers 500 mg 10-03 capsule by ity of capsule 00:00: 04:59 mouth 4 [place] 00 :00 (four) Medical times Branch daily for 5 days. cephALEXin 2020- No [id number] 500mg Take 1 Univers 500 mg 10-03 [...] 21:15: First dose [place] mg 00 on [facility] Medical 09/30/20 at Branch 1615, Until Discontinu [...] NaCl 0.9% Starting Branch (NS) 50 mL [facility] IV 09/30/20 at piggyback 1211, Until Geraldine [...] QHSPRN, [place] mg 57 Starting Medical [facility] Branch 09/29/20 at 2251, Until Discontinu [...] 09-29 Units, ity of (vitamin 20:00: Oral, [place] D3) tablet 00 DAILY, Medical 2,000 Units First dose Br anch on [facility] 09/29/20 at 1500, Until Discontinu ed, Routine lactobacill 0 Yes .5mg 0.5 mg, Uni vers us 09-29 Oral, BID, ity of acidophilus 14:15: First dose [place] tablet 0.5 00 on [facility] Medical mg 09/29/20 at Branch 0915, Until Discontinu ed, Routine KCL 0 Yes 20meq 20 mEq, Univers (KLOR-CON 09-29 Oral, ity of M20) tablet 14:00: DAILY, [place] 20 mEq 00 First dose Medical (after Branch last reorder) on [facility] 09/29/20 at 0900, Until Discontinu ed, Routine lipase-prot 0 Yes 2{capsu 2 capsule, Univers ease-amylas 09-29 le} Oral, TID ity of e (CREON) 08:45: MEALS, [place] 12,000-38,0 00 First dose Me dical 00 -60,000 on [facility] Branch unit 09/29/20 at capsule 2 [...] :00 s, ONCE, 1 Medic al dose, [facility] 09/29/20 at 0245, Routine FENTanyl PF 2020- No 50ug 50 mcg, Un marline (SUBLIMAZE 09-29 Slow IV ity o f (PF)) 07:30: 06:27 Push, [place] injection 00 :00 ONCE, 1 Medical 50 mcg dose, [facility] 09/29/20 at 0230, Routine piperacilli 2020- No [...] injection 4 17 Starting Medi molly mg [facility] Branch 09/29/20 at 0142, Until Discontinu ed, Routine, Nausea and Vomiting (N/V) iopamidol 2020- No [id number] 100mL 100 mL, Univers (ISOVUE 09-29 Intravenou [...] Medical 09/29/20 at Branch 0045, Routine ondansetron 2021-0 2021- No 4mg 4 mg, Slow Univers (ZOFRAN [...] Spirit 00:00: 00:00 - [facility] 00 :00 [facility] flu vaccine 2019-2019- No .5mL 0.5 mL, Un marline 6 months 08-10 Intramuscu ity of and up 20:51: 20:54 lar, ONCE, [place] (FLUZONE 00 :00 1 dose, Medical QUAD 08/11/19 Branch [id number] at 1600, (PF)) Routine syringe 0.5 mL [...] Pain (scale 4-6). lactulose 2019-0 2020- No [id number] 30mL Take 30 mL Univers 10 gram/15 08-10 by mouth 2 it y of mL oral 00:00: 04:59 (two) [place] solution 00 :00 times Medical daily for Branch 30 days. pantoprazol 2019-0 2020- No [id number] 40mg Take 1 Univers e 40 mg EC 08-10 tablet by ity of tablet 00:00: 04:59 mouth [place] 00 :00 daily for Medical 30 days. Branch lactulose 2019-0 2020- No [id number] 30mL Take 30 mL Univers 10 gram/15 08-10 by mouth 2 it y of mL oral 00:00: 04:59 (two) [place] solution 00 :00 times Medical daily for Branch 30 days. pantoprazol 2019-0 2020- No [id number] 40mg Take 1 Univers e 40 mg EC 08-10 tablet by ity of tablet 00:00: 04:59 mouth [place] 00 :00 daily for Medical 30 days. Branch propranolol 2019-0 2019- No [id number] 10mg Take 1 Univers 10 mg 08-10 [...] 4mg 4 mg, Slow Univers (ZOFRAN 08-09 05-02 IV Push, ity of (PF)) 08:55: 03:29 Q6HPRN, [place] injection 4 07 :20 Starting Medi molly mg Tue08/10/19 Branch at 0355, Until Tue08/10/19 at 2229, Routine, Nausea and Vomiting (N/V) lactulose 2018-0 Yes 10g Q.5D Take [address] [facility] [address] (CEPHULAC) 6-25 by mouth 2 Lesly es 10 gram 17:37: (two) Medical packet 13 times Center daily . rifAXIMin 2018-0 Yes hepatic 550mg Q.5D Take [address] [address] 550 mg Tab 6-25 encephalopa mg by L ukes 17:37: thy mouth 2 Medical 13 (two) Center times daily. lactulose 2018-0 Yes 10g Q.5D Take [address] [facility] [address] (CEPHULAC) 6-25 by mouth 2 [place]ly es 10 gram 17:37: (two) Medical packet 13 times Center daily . rifAXIMin 2018-0 Yes hepatic 550mg Q.5D Take 550 [facility] [...] Medical 13 (two) Center times daily. lactulose 2018-0 Yes 10g Q.5D Take 10 [...] Sodium e Sodium Singh defined Spir it - [facility] Acetaminoph Acetaminoph Yes Gm not Common en-Codeine en-Codeine Singh defined Spirit #3 #3 [facility] Oseltamivir Oseltamivir Yes Gm not Common Phosphate Phosphate Singh defined Sp cleopatra [facility] Levofloxaci Levofloxaci Yes Gm not Common n n Singh defined [facility] Xifaxan Xifaxan Yes Gm not Common Singh defined [facility] Lactulose Lactulose Yes Gm not Co mmon Singh defined [facility] Albuterol Albuterol Yes Gm not Co mmon Sulfate HFA Sulfate HFA Singh defined [facility] Azithromyci Azithromyci Yes Gm not Common n n Singh defined [facility] Amoxicillin Amoxicillin Yes Gm not Common -Pot -Pot Singh defined [facility] Clavulanate Clavulanate [facility] Immunizations Ordered Immunization Filled Immunization Date Status Commen ts Source Name Name FLUCELVAX QUAD 2021-12-[address] [facility] Hospital FLUCELVAX QUAD 2021-12-[address] 00:00:00 [facility] FLUCELVAX QUAD 2021-12-[address] 00:00:00 Hospital FLUCELVAX QUAD 2021-12-[address] 00:00:00 Hospital FLUCELVAX QUAD 2021-12-[address] 00:00:00 [facility] FLUCELVAX QUAD 2021-12-[address] 00:00:00 [...] ical PPSV23 (PNEUMOVAX) Branch Pneumococcal 2020-10-03 Completed [facility] Polysaccharide 00:00:00 Hospital Pneumococcal 2020-10-03 Completed [facility] Polysaccharide 00:00:00 Hospital Pneumococcal 2020-10-03 Completed [facility] Polysaccharide 00:00:00 [facility] SARS-COV-2 COVID-19 2020-08-08 Completed Unive rsity of MODERNA VACCINE 00:00:00 [facility] ical [place] SARS-COV-2 COVID-19 2020-08-08 Completed Unive rsity of MODERNA VACCINE 00:00:00 [facility] ical Branch SARS-COV-2 COVID-19 2020-08-08 Completed Unive rsity of MODERNA VACCINE 00:00:00 [facility] ical [place] SARS-COV-2 COVID-19 2020-08-08 Completed Unive rsity of MODERNA VACCINE 00:00:00 [facility] ical [place] SARS-COV-2 COVID-19 2020-08-08 Completed Unive rsity of MODERNA VACCINE 00:00:00 [facility] ical Branch SARS-COV-2 COVID-19 2020-08-08 Completed Unive rsity of MODERNA VACCINE 00:00:00 [facility] ical Branch SARS-COV-2 COVID-19 2020-08-08 Completed Unive rsity of MODERNA VACCINE 00:00:00 [facility] ical Branch SARS-COV-2 COVID-19 2020-08-08 Completed Unive rsity of MODERNA VACCINE 00:00:00 [facility] ical Branch SARS-COV-2 COVID-19 2020-08-08 Completed Unive rsity of MODERNA VACCINE 00:00:00 [facility] Branch SARS-COV-2 COVID-19 2020-08-08 Completed Unive rsity of MODERNA VACCINE 00:00:00 [facility] Branch SARS-COV-2 COVID-19 2020-08-08 Completed Unive rsity of MODERNA 12+ YRS 00:00:00 [facility] [place] [facility] Branch MODERNA COVID-19 MRNA 2020-08-08 Completed [facility] VACCINATION 00:00:00 Hospital MODERNA COVID-19 MRNA 2020-08-08 Completed [facility] VACCINATION 00:00:00 Hospital MODERNA COVID-19 MRNA 2020-08-08 Completed [facility]ist VACCINATION 00:00:00 Hospital SARS-COV-2 COVID-19 2020-07-11 Completed Unive rsity of MODERNA VACCINE 00:00:00 [facility] Branch SARS-COV-2 COVID-19 2020-07-11 Completed Unive rsity of MODERNA VACCINE 00:00:00 [facility] ical Branch SARS-COV-2 COVID-19 2020-07-11 Completed Unive rsity of MODERNA VACCINE 00:00:00 [facility] ical Branch SARS-COV-2 COVID-19 2020-07-11 Completed Unive rsity of MODERNA VACCINE 00:00:00 [facility] ical Branch SARS-COV-2 COVID-19 2020-07-11 Completed Unive rsity of MODERNA VACCINE 00:00:00 [facility] Branch SARS-COV-2 COVID-19 2020-07-11 Completed Unive rsity of MODERNA VACCINE 00:00:00 [place] Med ical Branch SARS-COV-2 COVID-19 2020-07-11 Completed Unive rsity of MODERNA VACCINE 00:00:00 [facility] Branch SARS-COV-2 COVID-19 2020-07-11 Completed Unive rsity of MODERNA VACCINE 00:00:00 [facility] Branch SARS-COV-2 COVID-19 2020-07-11 Completed Unive rsity of MODERNA VACCINE 00:00:00 [facility] ical Branch SARS-COV-2 COVID-19 2020-07-11 Completed Unive rsity of MODERNA VACCINE 00:00:00 [facility] Branch SARS-COV-2 COVID-19 2020-07-11 Completed Unive rsity of MODERNA 12+ YRS 00:00:00 [facility] [place] [facility] Branch MODERNA COVID-19 MRNA 2020-07-11 Completed Met [facility]ist VACCINATION 00:00:00 Hospital MODERNA COVID-19 MRNA 2020-07-11 Completed [facility] VACCINATION 00:00:00 Hospital MODERNA COVID-19 MRNA 2020-07-11 Completed [facility]ist VACCINATION 00:00:00 [facility] Influenza Virus 2019-08-11 Completed Universit [...] MO Branch FLUZONE QUAD PF 2019-08-11 Completed [facility] 00:00:00 Hospital FLUZONE QUAD PF 2019-08-11 Completed [facility] 00:00:00 Hospital FLUZONE QUAD PF 2019-08-11 Completed [facility] 00:00:00 Hospital Influenza (IM) 2018-05-29 Completed [facility] Preservative Free 00:00:00 Hospita l Influenza (IM) 2018-05-29 Completed [facility] Preservative Free 00:00:00 Hospita l Influenza (IM) 2018-05-29 Completed [facility] Preservative Free 00:00:00 Hospita l Influenza (IM) 2017-01-21 Completed [facility] Preservative Free 00:00:00 Hospita l Influenza (IM) 2017-01-21 Completed [facility] Preservative Free 00:00:00 Hospita l Influenza (IM) 2017-01-21 Completed [facility] Preservative Free 00:00:00 Hospita l Influenza (IM) 2016-02-28 Completed [facility] Preservative Free 00:00:00 Hospita l Influenza (IM) 2016-02-28 Completed [facility] Preservative Free 00:00:00 Hospita l Influenza (IM) 2016-02-28 Completed [facility] Preservative Free 00:00:00 Hospita l Vital Signs Vital Name Observation Time Observation Value Comments Source Systolic blood 2022-02-15 21:55:49 128 mm[Hg] Univer sity of pressure [place] [facility] Diastolic blood 2022-02-15 21:55:49 79 mm[Hg] Unive rsity of pressure [place] [facility] Heart rate 2022-02-15 21:55:49 75 /min [facility] [place] [facility] Respiratory rate 2022-02-15 21:55:49 19 /min Univ ersity of [place] [facility] Oxygen saturation in 2022-02-15 21:55:49 99 /min University of Arterial blood by [facility] [place] [facility] molly Pulse oximetry Branch Body temperature 2022-02-15 19:43:00 35.89 Sandee Univ ersity of [place] [facility] Body height 2022-02-15 19:43:00 162.6 cm [facility] [place] [facility] Body weight 2022-02-15 19:43:00 113.399 kg [facility] [place] [facility] BMI 2022-02-15 19:43:00 42.91 kg/m2 [facility] [place] [facility] Systolic blood 2021-09-29 03:00:00 126 mm[Hg] Univer sity of pressure [place] [facility] Diastolic blood 2021-09-29 03:00:00 57 mm[Hg] Unive rsity of pressure [place] [facility] Heart rate 2021-09-29 03:00:00 78 /min [facility] [place] [facility] Body temperature 2021-09-29 03:00:00 37.28 Sandee Univ ersity of [place] [facility] Respiratory rate 2021-09-29 03:00:00 16 /min Univ ersity of [place] [facility] Body height 2021-09-29 03:00:00 162.6 cm [facility] [place] [facility] Body weight 2021-09-29 03:00:00 117.935 kg [facility] [place] [facility] BMI 2021-09-29 03:00:00 44.63 kg/m2 [facility] [place] [facility] Oxygen saturation in 2021-09-29 03:00:00 97 /min University of Arterial blood by [facility] [place] [facility] molly Pulse oximetry Branch Systolic blood 2021-04-02 18:55:00 138 mm[Hg] Univer sity of pressure [place] [facility] Diastolic blood 2021-04-02 18:55:00 104 mm[Hg] Unive rsity of pressure [place] [facility] Heart rate 2021-04-02 18:55:00 74 /min [facility] [place] [facility] Body temperature 2021-04-02 18:55:00 36.78 Sandee Univ ersity of [place] [facility] Respiratory rate 2021-04-02 18:55:00 18 /min Univ ersity of [place] [facility] Body weight 2021-04-02 18:55:00 122.471 kg [facility] [place] [facility] BMI 2021-04-02 18:55:00 46.35 kg/m2 [facility] [place] [facility] Oxygen saturation in 2021-04-02 18:55:00 97 /min University of Arterial blood by [place] Medi molly Pulse oximetry Branch Systolic blood 2020-10-03 17:23:00 132 mm[Hg] Univer sity of pressure [place] [facility] Diastolic blood 2020-10-03 17:23:00 56 mm[Hg] Unive rsity of pressure [place] [facility] Heart rate 2020-10-03 17:23:00 88 /min [facility] [place] [facility] Body temperature 2020-10-03 17:23:00 36.94 Sandee Univ ers[facility] [place] [facility] Respiratory rate 2020-10-03 17:23:00 18 /min Univ ersity of [place] [facility] Oxygen saturation in 2020-10-03 17:23:00 94 /min University of Arterial blood by [place] Medi molly Pulse oximetry Branch Body weight 2020-09-30 08:11:00 121.473 kg [facility] [place] [facility] BMI 2020-09-30 08:11:00 47.44 kg/m2 [facility] [place] [facility] Body height 2020-09-29 03:33:00 160 cm [facility] [place] [facility] Diastolic blood 2019-08-11 20:04:00 44 mm[Hg] Unive rsity of pressure [place] [facility] Heart rate 2019-08-11 20:04:00 70 /min [facility] [place] [facility] Body temperature 2019-08-11 20:04:00 36.61 Sandee Univ ersity [facility] [place] [facility] Respiratory rate 2019-08-11 20:04:00 18 /min Univ ersity [facility] [place] [facility] Oxygen saturation in 2019-08-11 20:04:00 91 /min University of Arterial blood by [place] Medi molly Pulse oximetry Branch Systolic blood 2019-08-11 20:04:00 107 mm[Hg] Univer sity of pressure [place] [facility] Body height 2019-08-10 08:01:00 162.6 cm [facility] [place] [facility] Body weight 2019-08-10 08:01:00 119.296 kg Universi [facility] [place] [facility] BMI 2019-08-10 08:01:00 45[facility]14 [facility] Di[facility] blood 2019-08-11 20:04:00 44 mm[Hg] [facility] Heart rate 2019-08-11 20:04:00 70 /min Universi [facility] [place] [facility] Body temperature 2019-08-11 20:04:00 36.61 [facility] rate 2019-08-11 20:04:00 18 /min Univ [facility] Oxygen saturation in 2019-08-11 20:04:00 91 /min [facility] Arterial blood by [facility] Pulse oximetry [place] Systolic blood 2019-08-11 20:04:00 107 mm[Hg] Univer [facility] Body height 2019-08-10 08:01:00 162.6 cm Universi [facility] [place] [facility] Body weight 2019-08-10 08:01:00 119.296 kg [facility] BMI 2019-08-10 08:01:00 45.14 kg/m2 [facility] Systolic blood 2022-02-27 23:42:53 122 mm[Hg] Method [facility] pressure Diastolic blood 2022-02-27 23:42:53 53 mm[Hg] [facility] pressure Heart rate 2022-02-27 23:42:53 73 /min [facility] [place] [facility] Body temperature 2022-02-27 23:42:[address] [facility] Respiratory rate 2022-02-27 23:42:53 18 /min [facility] Oxygen saturation in 2022-02-27 23:42:53 98 /min [facility] Arterial blood by Pulse oximetry Body weight 2022-02-26 03:00:22 118.162 kg [facility] [place] [facility] BMI 2022-02-26 03:00:22 44.71 kg/m2 [facility] Body height 2022-02-26 02:56:00 162.6 cm [facility] [place] [facility] Systolic blood 2022-01-06 21:13:50 124 mm[Hg] Method [facility] pressure Diastolic blood 2022-01-06 21:13:50 58 mm[Hg] [facility] pressure Heart rate 2022-01-06 21:13:50 69 /min [facility] Body temperature 2022-01-06 21:13:[address] [facility] Respiratory rate 2022-01-06 21:13:50 18 /min [facility] Oxygen saturation in 2022-01-06 21:13:50 95 /min [facility] Arterial blood by Pulse oximetry Body weight 2022-01-06 10:25:28 109.952 kg [facility] BMI 2022-01-06 10:25:28 41.61 kg/m2 [facility] Body height 2022-01-02 04:15:00 162.6 cm [facility] Systolic blood 2021-12-18 20:25:00 122 mm[Hg] Method [facility] Hospital pressure Diastolic blood 2021-12-18 20:25:00 57 mm[Hg] [facility] pressure Heart rate 2021-12-18 20:25:00 71 /min [facility] Body temperature 2021-12-18 20:25:[address] [facility] Respiratory rate 2021-12-18 20:25:00 19 /min [facility] Oxygen saturation in 2021-12-18 20:25:00 94 /min [facility] Arterial blood by Pulse oximetry Body weight 2021-12-18 10:58:00 112.1 kg [facility] 2021-12-18 10:58:00 42.42 kg/m2 [facility] Systolic blood 2021-12-03 12:21:16 129 mm[Hg] Method is Hospital pressure Diastolic blood 2021-12-03 12:21:16 58 mm[Hg] [facility] pressure Heart rate 2021-12-03 12:21:16 68 /min [facility] Body temperature 2021-12-03 12:21:[address] [facility] Respiratory rate 2021-12-03 12:21:16 20 /min [facility] Oxygen saturation in 2021-12-03 12:21:16 95 /min [facility] Arterial blood by Pulse oximetry Body weight 2021-12-03 11:09:00 112.6 kg [facility] 2021-12-03 11:09:00 42.61 kg/m2 [facility] Body height 2021-10-21 16:02:36 162.6 cm [facility] Procedures Procedure Date / Time Performing Source Performed Clinician XR SHOULDER 2+ VW LEFT 2022-02-27 Viviana Ward Sabianist 15:01:00 [facility] CBC WITH PLATELET AND DIFFERENTIAL 2022-02-27 Dinakar, Leah stuart Sabianist 10:39:00 [facility] PROTHROMBIN TIME WITH INR 2022-02-27 MichelakarJeremy Method ist 10:39:00 [facility] BASIC METABOLIC PANEL 2022-02-27 Dinakar, Jeremy Sabianist 10:39:00 [facility] HEPATIC FUNCTION PANEL 2022-02-27 MichelakarJeremy Sabianist 10:39:00 [facility] PHOSPHORUS LEVEL 2022-02-27 DinakarJeremy Sabianist 10:39:00 [facility] MAGNESIUM LEVEL 2022-02-27 DinakarJeremy Sabianist 10:39:00 [facility] ESTIMATED GFR 2022-02-27 DinakarJeremy Sabianist 10:39:00 [facility] SMEAR REVIEW 2022-02-27 DinakarJeremy Sabianist 10:39:00 [facility] POC GLUCOSE 2022-02-27 Jeremy Sandoval Sabianist 09:38:00 [facility] CBC WITH PLATELET AND DIFFERENTIAL 2022-02-26 Dinakar, Leah stuart Sabianist 11:53:00 [facility] PROTHROMBIN TIME WITH INR 2022-02-26 DinarJeremy Method ist 11:53:00 [facility] BASIC METABOLIC PANEL 2022-02-26 DinakarJeremy Sabianist 11:53:00 [facility] HEPATIC FUNCTION PANEL 2022-02-26 Dinakar, Jeremy Sabianist 11:53:00 [facility] PHOSPHORUS LEVEL 2022-02-26 DinakarJeremy Sabianist 11:53:00 [facility] MAGNESIUM LEVEL 2022-02-26 Dinakar, Jeremy Sabianist 11:53:00 [facility] HEMOGLOBIN A1C 2022-02-26 MichelakarJeremy Sabianist 11:53:00 [facility] ESTIMATED GFR 2022-02-26 Dinakar, Jeremy Sabianist 11:53:00 [facility] SMEAR REVIEW 2022-02-26 Jeremy Sandoval 11:53:00 [facility] AMYLASE LEVEL 2022-02-26 Jeremy Sandoval 11:53:00 [facility] GASTROINTESTINAL PANEL 2022-02-26 Myra Garcia ist 03:50:00 [facility] BLOOD CULTURE, AEROBIC & ANAEROBIC 2022-02-25 Laci Garcia Sabianist 23:25:00 [facility] COVID-19 QUALITATIVE RT-PCR 2022-02-25 RehreStevo potts Meth odist 23:24:00 [facility] BLOOD CULTURE, AEROBIC & ANAEROBIC 2022-02-25 Laci Garcia chance Sabianist 23:10:00 [facility] US ABDOMINAL LIMITED 2022-02-25 Myra Garcia t 21:58:00 [facility] CT ABDOMEN PELVIS W CONTRAST 2022-02-25 RehrerStevo hodist 21:28:38 [facility] ECG ED PRELIMINARY INTERPRETATION 2022-02-25 ShannareStevo potts 20:37:40 [facility] PROTHROMBIN TIME WITH INR 2022-02-25 RehrerStevo ist 20:18:00 [facility] PARTIAL THROMBOPLASTIN TIME (PTT) 2022-02-25 ShannareStevo potts 20:18:00 [facility] CBC WITH PLATELET AND DIFFERENTIAL 2022-02-25 Stevo Hoskins 19:55:00 [facility] COMPREHENSIVE METABOLIC PANEL 2022-02-25 Stevo Hoskins thodist 19:55:00 [facility] LIPASE LEVEL 2022-02-25 ShannarerStevo 19:55:00 [facility] ESTIMATED GFR 2022-02-25 RehrerStevo 19:55:00 [facility] ECG 12-LEAD 2022-02-25 ShannarerStevo 18:42:27 [facility] RAPID INFLUENZA A/B 2022-02-15 Florian Ayers [place] [facility] f 21:31:00 [facility] COVID-19 (ID NOW RAPID TESTING) 2022-02-15 [facility] of 21:31:00 [facility] URINALYSIS 2022-02-15 [facility] of 21:04:[address] [facility] [address] ABDOMEN PELVIS W CONTRAST 2022-02-15 AyersCatracho tijerinaip Uni versity of 20:35:57 [facility] LIPASE 2022-02-15 [facility] of 20:15:00 [facility] COMP. METABOLIC PANEL (62963) 2022-02-15 Catracho Ayersip Un iversity of 20:15:00 [facility] CBC WITH DIFF 2022-02-15 [place] [facility] of 20:15:00 [facility] CONSENT/REFUSAL FOR DIAGNOSIS AND 2022-02-15 [facility] 19:31:00 [place] [facility] PROTHROMBIN TIME WITH INR 2022-02-04 Carolin Sanches Method ist 11:20:00 Hospital PHOSPHORUS LEVEL 2022-02-04 Carolin Sanches Sabianist 11:20:00 Hospital MAGNESIUM LEVEL 2022-02-04 Carolin Sanches Sabianist 11:20:00 Hospital BASIC METABOLIC PANEL 2022-02-04 Carolin Sanches Sabianist 11:20:00 Hospital HEPATIC FUNCTION PANEL 2022-02-04 Carolin Sanches Sabianist 11:20:00 Hospital CBC HEMOGRAM 2022-02-04 Carolin Sanches Sabianist 11:20:00 Hospital ESTIMATED GFR 2022-02-04 Carolin Sanches Sabianist 11:20:00 Hospital SMEAR REVIEW 2022-02-04 Carolin Sanches Sabianist 11:20:00 Hospital US UPPER GI TRACT, ENDOSCOPIC 2022-02-03 Carolin Sanches Va thodist 19:36:00 Hospital PROTHROMBIN TIME WITH INR 2022-02-03 Carolin Sanches Method ist 09:29:00 Hospital PHOSPHORUS LEVEL 2022-02-03 Carolin Sanches Sabianist 09:29:00 Hospital MAGNESIUM LEVEL 2022-02-03 Carolin Sanches Sabianist 09:29:00 Hospital BASIC METABOLIC PANEL 2022-02-03 Carolin Sanches Sabianist 09:29:00 Hospital HEPATIC FUNCTION PANEL 2022-02-03 Carolin Sanches Sabianist 09:29:00 Hospital CBC HEMOGRAM 2022-02-03 Carolin Sanches Sabianist 09:29:00 Hospital ESTIMATED GFR 2022-02-03 Nakia Cruz Sabianist 09:29:00 Hospital SMEAR REVIEW 2022-02-03 Nakia Cruz 09:29:00 Hospital PROTHROMBIN TIME WITH INR 2022-02-02 Carolin Sanches Method ist 09:08:00 Hospital PHOSPHORUS LEVEL 2022-02-02 Carolin Sanches Sabianist 09:08:00 Hospital MAGNESIUM LEVEL 2022-02-02 Carolin Sanches Sabianist 09:08:00 Hospital BASIC METABOLIC PANEL 2022-02-02 Carolin Sanches Sabianist 09:08:00 Hospital HEPATIC FUNCTION PANEL 2022-02-02 Carolin Sanches Sabianist 09:08:00 Hospital CBC HEMOGRAM 2022-02-02 Carolin Sanches Sabianist 09:08:00 Hospital ESTIMATED GFR 2022-02-02 Nakia Cruzist 09:08:00 Hospital SMEAR REVIEW 2022-02-02 Nakia Cruz 09:08:00 Hospital XR ABDOMEN 1 VW PORTABLE 2022-02-01 Kienast Myra Meth odist 22:39:25 [place] [id number] ANTI-SPIKE IGG ANTIBODY 2022-02-01 Deepak Ward Sabianist TITER 11:37:00 [facility] CBC WITH PLATELET AND DIFFERENTIAL 2022-02-01 Deepak Ward Sabianist 11:37:00 Hospital PROTHROMBIN TIME WITH INR 2022-02-01 Carolin Sanches Method ist 11:37:00 Hospital COMPREHENSIVE METABOLIC PANEL 2022-02-01 Bebeto Ward ethodist 11:37:00 Hospital PHOSPHORUS LEVEL 2022-02-01 Carolin Sanches Sabianist 11:37:00 Hospital MAGNESIUM LEVEL 2022-02-01 Carolin Sanches Sabianist 11:37:00 Hospital THYROID STIMULATING HORMONE 2022-02-01 Bebeto Ward hodnohelia 11:37:00 Hospital T4 2022-02-01 Bebeto Ward Sabianist 11:37:00 Hospital VITAMIN D 25 HYDROXY LEVEL 2022-02-01 Bebeto Ward odist 11:37:00 Hospital ZZCOVID-19 SEROLOGY PATIENT 2022-02-01 Bebeto Ward Met hodist SURVEILLANCE 11:37:00 Hospital ESTIMATED GFR 2022-02-01 Bebeto Ward Sabianist 11:37:00 Hospital SMEAR REVIEW 2022-02-01 Bebeto Ward Sabianist 11:37:00 Hospital COVID-19 QUALITATIVE RT-PCR 2022-02-01 June Clark hodist 03:59:00 [facility] LACTIC ACID LEVEL, SEPSIS - NOW 2022-02-01 Bebeto Ward AND REPEAT 2X EVERY 3 HOURS 03:45:[address] ABDOMEN PELVIS W CONTRAST 2022-02-01 June Clark thodist 02:53:55 [facility] BLOOD CULTURE, AEROBIC & ANAEROBIC 2022-02-01 Johnna Clark Sabianist 02:09:00 [facility] URINE CULTURE 2022-02-01 June Clark 01:50:00 [facility] URINALYSIS SCREEN AND MICROSCOPY, 2022-02-01 Cristopher Clark WITH REFLEX TO CULTURE 01:50:00 [facility] COMPREHENSIVE METABOLIC PANEL 2022-02-01 Rolando Olivier 01:47:00 Hospital LIPASE LEVEL 2022-02-01 Rolando Olivier 01:47:00 Hospital ESTIMATED GFR 2022-02-01 Rolando Olivier 01:47:00 Hospital LACTIC ACID LEVEL, SEPSIS - NOW 2022-02-01 Bebeto Ward AND REPEAT 2X EVERY 3 HOURS 01:47:00 [facility]osp ital PROTHROMBIN TIME WITH INR 2022-02-01 June Clarko dist 01:47:00 [facility] PARTIAL THROMBOPLASTIN TIME (PTT) 2022-02-01 Cristopher Clark 01:47:00 [facility] AMMONIA LEVEL 2022-02-01 June Clark 01:47:00 [facility] BLOOD CULTURE, AEROBIC & ANAEROBIC 2022-02-01 Johnna Clark Sabianist 01:45:00 [facility] ECG ED PRELIMINARY INTERPRETATION 2022-02-01 Cristopher Clark Sabianist 01:18:19 [facility] URINE CULTURE 2022-02-01 Rolando Olivier Sabianist 01:17:00 Hospital CBC WITH PLATELET AND DIFFERENTIAL 2022-02-01 Rolando Olivierist 01:17:00 Hospital URINALYSIS SCREEN AND MICROSCOPY, 2022-02-01 Rolando Olivier ill Sabianist WITH REFLEX TO CULTURE 01:17:00 Hospital SMEAR REVIEW 2022-02-01 Rolando Olivier 01:17:00 Hospital ECG 12-LEAD 2022-01-31 Rolando Olivierist 23:14:20 Hospital POC GLUCOSE 2022-01-06 Jeremy Sandovalist 17:53:00 [facility] CBC WITH PLATELET AND DIFFERENTIAL 2022-01-06 Nakia Cruz 09:49:00 Hospital PROTHROMBIN TIME WITH INR 2022-01-06 Nakia Cruz Method ist 09:49:00 [facility] COMPREHENSIVE METABOLIC PANEL 2022-01-06 Jeremy Sandoval thodist 09:49:00 [facility] ESTIMATED GFR 2022-01-06 Jeremy Sandoval Sabianist 09:49:00 [facility] SMEAR REVIEW 2022-01-06 Nakia Cruz 09:49:00 Hospital SURGICAL PATHOLOGY REQUEST 2022-01-05 Jeremy Sandoval Metho dist 21:05:00 [facility] ESOPHAGOGASTRODUODENOSCOPY (EGD) 2022-01-05 Elias Guzman 20:55:00 Hospital CBC WITH PLATELET AND DIFFERENTIAL 2022-01-05 Nakia Cruz 09:38:00 Hospital PROTHROMBIN TIME WITH INR 2022-01-05 Nakia Cruz Method ist 09:38:00 Hospital COMPREHENSIVE METABOLIC PANEL 2022-01-05 Nakia Cruz thodist 09:38:00 Hospital PHOSPHORUS LEVEL 2022-01-05 Nakia Cruz 09:38:00 Hospital MAGNESIUM LEVEL 2022-01-05 Nakia Cruz 09:38:00 Hospital ESTIMATED GFR 2022-01-05 Nakia Cruz 09:38:00 Hospital SMEAR REVIEW 2022-01-05 Li, Nakia Sabianist 09:38:00 Hospital XR ABDOMEN 1 VW PORTABLE 2022-01-04 Dindavid, Jeremy Methodi st 16:05:00 [facility] CBC WITH PLATELET AND DIFFERENTIAL 2022-01-04 Nakia Cruz 09:33:00 Hospital PROTHROMBIN TIME WITH INR 2022-01-04 Nakia Cruz Method ist 09:33:00 Hospital COMPREHENSIVE METABOLIC PANEL 2022-01-04 Nakia Cruz thodist 09:33:00 Hospital PHOSPHORUS LEVEL 2022-01-04 Nakia Cruz Sabianist 09:33:00 Hospital MAGNESIUM LEVEL 2022-01-04 Nakia Cruz Sabianist 09:33:00 Hospital ESTIMATED GFR 2022-01-04 Nakia Cruz 09:33:00 Hospital SMEAR REVIEW 2022-01-04 Nakia Cruz 09:33:00 Hospital XR ABDOMEN 1 VW PORTABLE 2022-01-03 Ara, Jeremy Methodi st 16:09:48 [place] [id number] ANTI-SPIKE IGG ANTIBODY 2022-01-03 Leah Sandoval Sabianist TITER 09:01:00 [facility] CBC WITH PLATELET AND DIFFERENTIAL 2022-01-03 Nakia Cruz Sabianist 09:01:00 Hospital PROTHROMBIN TIME WITH INR 2022-01-03 Nakia Cruz Method ist 09:01:00 [facility] COMPREHENSIVE METABOLIC PANEL 2022-01-03 Nakia Cruz thodist 09:01:00 Hospital PHOSPHORUS LEVEL 2022-01-03 Nakia Cruz 09:01:00 Hospital MAGNESIUM LEVEL 2022-01-03 Nakia Cruz 09:01:00 Hospital HEMOGLOBIN A1C 2022-01-03 Nakia Cruz 09:01:00 Hospital THYROID STIMULATING HORMONE 2022-01-03 Nakia Cruz odist 09:01:00 Hospital T4 2022-01-03 Nakia Cruz 09:01:00 Hospital VITAMIN D 25 HYDROXY LEVEL 2022-01-03 Nakia Cruzo dist 09:01:00 [facility] ZCOD19 SEROLOGY PATIENT 2022-01-03 Jeremy Sandoval SURVEILLANCE 09:01:00 [facility] AMYLASE LEVEL 2022-01-03 Cassandra Johnson 09:01:00 [facility] ESTIMATED GFR 2022-01-03 Nakia Cruz 09:01:00 Hospital SMEAR REVIEW 2022-01-03 Nakia Cruz 09:01:00 Hospital LIPASE LEVEL 2022-01-03 Nakia Cruz 09:01:00 Hospital XR ABDOMEN 1 VW PORTABLE 2022-01-02 Cassandra Johnson Meth odist 15:46:00 [facility] URINALYSIS SCREEN AND MICROSCOPY, 2022-01-02 Vandana [...] CONTRAST 2022-01-02 Vandana Bernstein Met hodist 08:56:21 [facility] CBC WITH PLATELET AND DIFFERENTIAL 2022-01-02 Vandana Bernstein Sabianist 05:47:00 [facility] COMPREHENSIVE METABOLIC PANEL 2022-01-02 Vandana Bernstein Me thodist 05:47:00 [facility] LIPASE LEVEL 2022-01-02 Vandana Bernstein Sabianist 05:47:00 [facility] PROTHROMBIN TIME WITH INR 2022-01-02 Vandana Bernstein Method ist 05:47:00 [facility] PARTIAL THROMBOPLASTIN TIME (PTT) 2022-01-02 Vandana Bernstein Sabianist 05:47:00 [facility] ESTIMATED GFR 2022-01-02 Vandana Bernstein Sabianist 05:47:00 [facility] SMEAR REVIEW 2022-01-02 Vandana Bernstein Sabianist 05:47:00 [facility] CBC WITH PLATELET AND DIFFERENTIAL 2021-12-18 Leah Sandoval Sabianist 10:19:00 [facility] PROTHROMBIN TIME WITH INR 2021-12-18 DinakaJeremy potts Method ist 10:19:00 [facility] BASIC METABOLIC PANEL 2021-12-18 Dinakar, Jeremy Sabianist 10:19:00 [facility] HEPATIC FUNCTION PANEL 2021-12-18 Dinakar, Jeremy Sabianist 10:19:00 [facility] PHOSPHORUS LEVEL 2021-12-18 Dinakar, Jeremy Sabianist 10:19:00 [facility] MAGNESIUM LEVEL 2021-12-18 Dinakar, Jeremy Sabianist 10:19:00 [facility] ESTIMATED GFR 2021-12-18 Dinakar, Jeremy Sabianist 10:19:00 [facility] SMEAR REVIEW 2021-12-18 Dinakar, Jeremy Sabianist 10:19:00 [facility] CBC WITH PLATELET AND DIFFERENTIAL 2021-12-17 Dinakar, Leah stuart Sabianist 11:45:00 [facility] PROTHROMBIN TIME WITH INR 2021-12-17 Dinakar, Jeremy Method ist 11:45:00 [facility] BASIC METABOLIC PANEL 2021-12-17 Dinakar, Jeremy Sabianist 11:45:00 [facility] HEPATIC FUNCTION PANEL 2021-12-17 Dinakar, Jeremy Sabianist 11:45:00 [facility] PHOSPHORUS LEVEL 2021-12-17 Dinakar, Jeremy Sabianist 11:45:00 [facility] MAGNESIUM LEVEL 2021-12-17 Dinakar, Jeremy Sabianist 11:45:00 [facility] ESTIMATED GFR 2021-12-17 Dinakar, Jeremy Sabianist 11:45:00 [facility] SMEAR REVIEW 2021-12-17 Dinakar, Jeremy Sabianist 11:45:00 [facility] NM GI BLEEDING STUDY 2021-12-16 Elias Guzmanist 20:06:11 Hospital MRI CHOLANGIOGRAM WO CONTRAST 2021-12-16 Elias Guzman thodist 13:57:00 Hospital MRI ABDOMEN W WO CONTRAST 2021-12-16 Elias Guzman Method ist 13:56:00 Hospital CBC WITH PLATELET AND DIFFERENTIAL 2021-12-16 Dinakar, Leah stuart Sabianist 11:26:00 [facility] PROTHROMBIN TIME WITH INR 2021-12-16 Dinakar, Jeremy Method ist 11:26:00 [facility] BASIC METABOLIC PANEL 2021-12-16 Dinakar, Jeremy Sabianist 11:26:00 [facility] HEPATIC FUNCTION PANEL 2021-12-16 Jeremy Sandoval Sabianist 11:26:00 [facility] PHOSPHORUS LEVEL 2021-12-16 DinarJeremy Sabianist 11:26:00 [facility] MAGNESIUM LEVEL 2021-12-16 DinarJeremy Sabianist 11:26:00 [facility] ESTIMATED GFR 2021-12-16 Jreemy Sandoval Sabianist 11:26:00 [facility] SMEAR REVIEW 2021-12-16 Jeremy Sandoval Sabianist 11:26:00 [facility] BASIC METABOLIC PANEL 2021-12-15 Bebeto Ward Sabianist 12:30:00 Hospital ESTIMATED GFR 2021-12-15 Bebeto Ward Sabianist 12:30:00 [facility] HEPATIC FUNCTION PANEL 2021-12-15 Bebeto Wardis t 12:30:00 Hospital MAGNESIUM LEVEL 2021-12-15 Bebeto Ward Sabianist 12:30:00 Hospital PHOSPHORUS LEVEL 2021-12-15 Bebeto Ward Sabianist 12:30:00 Hospital CBC HEMOGRAM 2021-12-15 Bebeto Ward Sabianist 12:30:00 Hospital PROTHROMBIN TIME WITH INR 2021-12-15 Bebeto Ward Metho dist 12:30:00 Hospital C-REACTIVE PROTEIN 2021-12-15 WardBebeto sanches Sabianist 12:30:00 Hospital SMEAR REVIEW 2021-12-15 WardBeebto sanches Sabianist 12:30:00 Hospital CBC WITH PLATELET AND DIFFERENTIAL 2021-12-15 Leah Sandoval 11:14:00 [facility] PROTHROMBIN TIME WITH INR 2021-12-15 Jeremy Sandoval ist 11:14:00 [facility] BASIC METABOLIC PANEL 2021-12-15 Jeremy Sandoval Sabianist 11:14:00 [facility] HEPATIC FUNCTION PANEL 2021-12-15 Jeremy Sandoval Sabianist 11:14:00 [facility] PHOSPHORUS LEVEL 2021-12-15 Jeremy Sandoval Sabianist 11:14:00 [facility] MAGNESIUM LEVEL 2021-12-15 DinarJeremy Sabianist 11:14:00 [facility] C-REACTIVE PROTEIN 2021-12-15 Ward Bebeto Sabianist 11:14:00 Hospital ESTIMATED GFR 2021-12-15 Dinakar, Jeremy Sabianist 11:14:00 [facility] CBC WITH PLATELET AND DIFFERENTIAL 2021-12-14 Dinakar, Leah stuart Sabianist 10:39:00 [facility] PROTHROMBIN TIME WITH INR 2021-12-14 Dinakar, Jeremy Method ist 10:39:00 [facility] BASIC METABOLIC PANEL 2021-12-14 Dinakar, Jeremy Sabianist 10:39:00 [facility] HEPATIC FUNCTION PANEL 2021-12-14 Dinakar, Jeremy Sabianist 10:39:00 [facility] PHOSPHORUS LEVEL 2021-12-14 Dinakar, Jeremy Sabianist 10:39:00 [facility] MAGNESIUM LEVEL 2021-12-14 Dinakar, Jeremy Sabianist 10:39:00 [facility] C-REACTIVE PROTEIN 2021-12-14 Ward, Bebeto Sabianist 10:39:00 Hospital FERRITIN LEVEL 2021-12-14 WardBebeto Sabianist 10:39:00 Hospital FOLATE LEVEL 2021-12-14 WardBebeto Sabianist 10:39:00 Hospital HAPTOGLOBIN 2021-12-14 WardBebeto Sabianist 10:39:00 Hospital VITAMIN B12 LEVEL 2021-12-14 WardBebeto Sabianist 10:39:00 Hospital TOTAL IRON BINDING CAPACITY 2021-12-14 WardBebeto liriano Met hodist 10:39:00 Hospital RETICULOCYTE COUNT 2021-12-14 WardBebeto Sabianist 10:39:00 Hospital LDH 2021-12-14 Ward Bebeto Sabianist 10:39:00 Hospital ESTIMATED GFR 2021-12-14 Dinakar, Jeremy Sabianist 10:39:00 [facility] VENIPUNC NEED PHYS SKILL,DX OR RX 2021-12-13 Latanya Ring Sabianist 21:45:17 [facility] CBC WITH PLATELET AND DIFFERENTIAL 2021-12-13 Dinakar, Leah stuart Sabianist 07:40:00 [facility] PROTHROMBIN TIME WITH INR 2021-12-13 Dinakar, Jeremy Method ist 07:40:00 [facility] BASIC METABOLIC PANEL 2021-12-13 Dinakar, Jeremy Kyle 07:40:00 [facility] HEPATIC FUNCTION PANEL 2021-12-13 Dinar, Jeremy Kyle 07:40:00 [facility] PHOSPHORUS LEVEL 2021-12-13 Dinar, Jeremy Kyle 07:40:00 [facility] MAGNESIUM LEVEL 2021-12-13 Dinhomar, Jeremy Kyle 07:40:00 [facility] HEMOGLOBIN A1C 2021-12-13 Dinar, Jeremy Kyle 07:40:00 [facility] C-REACTIVE PROTEIN 2021-12-13 Bebeto Wrad 07:40:00 Hospital SEDIMENTATION RATE 2021-12-13 Bebeto Ward 07:40:00 Hospital LDH 2021-12-13 Bebeto Ward 07:40:00 Hospital LIPASE LEVEL 2021-12-13 Bebeto Ward 07:40:00 Hospital GGT 2021-12-13 Bebeto Ward 07:40:00 Hospital ESTIMATED GFR 2021-12-13 Ara, Jeremy Kyle 07:40:00 [facility] SMEAR REVIEW 2021-12-13 Ara, Jeremy Kyle 07:40:00 [facility] BLOOD CULTURE, AEROBIC & ANAEROBIC 2021-12-12 Dinar, Leah Kyle 12:00:00 [facility] BLOOD CULTURE, AEROBIC & ANAEROBIC 2021-12-12 Dinakar, Leah Kyle 11:42:00 [facility] ZZCOVID-19 ANTI-SPIKE IGG ANTIBODY 2021-12-12 Ara, Leah Kyle TITER 11:40:00 [facility] TROPONIN T 2021-12-12 Rehrer, Stevo Kyle 11:40:00 [facility] CBC WITH PLATELET AND DIFFERENTIAL 2021-12-12 Dinar, Leah Rileyist 11:40:00 [facility] 2021-12-12 Jeremy Sandoval SURVEILLANCE 11:40:00 [facility] SMEAR REVIEW 2021-12-12 Ara, Jeremy Kyle 11:40:00 [facility] TROPONIN T 2021-12-12 Rehrer, Stevo Kyle 09:10:00 [facility] LACTIC ACID LEVEL, SEPSIS - NOW 2021-12-12 Rehrer, Stevo Kyle AND REPEAT 2X EVERY 3 HOURS 09:10:00 [facility] ital CT ABDOMEN PELVIS W CONTRAST 2021-12-12 RehrerStevo 06:58:00 [facility] ECG ED PRELIMINARY INTERPRETATION 2021-12-12 RehrerStevoist 05:33:45 [facility] URINE CULTURE 2021-12-12 RehrerStevoist 04:28:00 [facility] URINALYSIS SCREEN AND MICROSCOPY, 2021-12-12 Rehrer, Stevo Kyle WITH REFLEX TO CULTURE 03:45:00 [facility] COVID-19 QUALITATIVE RT-PCR 2021-12-12 RehrerStevo Meth odist 03:30:00 [facility] PROTHROMBIN TIME WITH INR 2021-12-12 RehrerStevo Method ist 03:30:00 [facility] PARTIAL THROMBOPLASTIN TIME (PTT) 2021-12-12 RehrerStevo 03:30:00 [facility] LIPASE LEVEL 2021-12-12 RehrerStevo Sabianist 03:30:00 [facility] TROPONIN T 2021-12-12 RehrerStevo Sabianist 03:30:00 [facility] B NATRIURETIC PEPTIDE 2021-12-12 RehrerStevo 03:30:00 [facility] TYPE AND SCREEN 2021-12-12 RehrerStevoist 03:30:00 [facility] LACTIC ACID LEVEL, SEPSIS - NOW 2021-12-12 Tamie Silveira AND REPEAT 2X EVERY 3 HOURS 03:30:00 [facility]osp [facility] ECG 12-LEAD 2021-12-12 RehrerStevo 03:08:12 [facility] CBC WITH PLATELET AND DIFFERENTIAL 2021-12-11 Tamie Silveira 22:48:00 Hospital COMPREHENSIVE METABOLIC PANEL 2021-12-11 Tamie Silveira thodist 22:48:00 Hospital LIPASE LEVEL 2021-12-11 Tamie Silveira 22:48:00 Hospital LACTIC ACID LEVEL, SEPSIS - NOW 2021-12-11 Tamie Silveira AND REPEAT 2X EVERY 3 HOURS 22:48:00 Hosp [facility] ESTIMATED GFR 2021-12-11 Tamie Silveira Sabianist 22:48:00 Hospital SMEAR REVIEW 2021-12-11 Tamie Silveira Sabianist 22:48:00 Hospital CBC WITH PLATELET AND DIFFERENTIAL 2021-12-03 Dinakar, Leah stuart Sabianist 11:14:00 [facility] PROTHROMBIN TIME WITH INR 2021-12-03 Dinakar, Jeremy Method ist 11:14:00 [facility] BASIC METABOLIC PANEL 2021-12-03 Dinakar, Jeremy Sabianist 11:14:00 [facility] [facility] FUNCTION PANEL 2021-12-03 Dinakar, Jeremy Sabianist 11:14:00 [facility] PHOSPHORUS LEVEL 2021-12-03 Dinakar, Jeremy Sabianist 11:14:00 [facility] MAGNESIUM LEVEL 2021-12-03 Dinakar, Jeremy Sabianist 11:14:00 [facility] ESTIMATED GFR 2021-12-03 Dinakar, Jeremy Sabianist 11:14:00 [facility] SMEAR REVIEW 2021-12-03 Dinakar, Jeremy Sabianist 11:14:00 [facility] US DUPLEX VENOUS UPPER EXTREMITY 2021-12-02 Nakia Cruz Sabianist LEFT 18:10:00 Hospital CBC WITH PLATELET AND DIFFERENTIAL 2021-12-02 Dinakar, Leah stuart Sabianist 09:59:00 [facility] PROTHROMBIN TIME WITH INR 2021-12-02 Dinakar, Jeremy Method ist 09:59:00 [facility] BASIC METABOLIC PANEL 2021-12-02 Dinakar, Jeremy Sabianist 09:59:00 [facility] HEPATIC FUNCTION PANEL 2021-12-02 Dinakar, Jeremy Sabianist 09:59:00 [facility] PHOSPHORUS LEVEL 2021-12-02 Dinakar, Jeremy Sabianist 09:59:00 [facility] MAGNESIUM LEVEL 2021-12-02 Dinakar, Jeremy Sabianist 09:59:00 [facility] ESTIMATED GFR 2021-12-02 Dinakar, Jeremy Sabianist 09:59:00 [facility] CBC WITH PLATELET AND DIFFERENTIAL 2021-12-01 Dinakar, Leah stuart Sabianist 10:22:00 [facility] PROTHROMBIN TIME WITH INR 2021-12-01 Dinakar, Jeremy Method ist 10:22:00 [facility] BASIC METABOLIC PANEL 2021-12-01 Dinakar, Jeremy Sabianist 10:22:00 [facility] HEPATIC FUNCTION PANEL 2021-12-01 Dinakar, Jeremy Sabianist 10:22:00 [facility] PHOSPHORUS LEVEL 2021-12-01 Dinakar, Jeremy Sabianist 10:22:00 [facility] MAGNESIUM LEVEL 2021-12-01 Dinakar, Jeremy Sabianist 10:22:00 [facility] ESTIMATED GFR 2021-12-01 Dinakar, Jeremy Sabianist 10:22:00 [facility] SMEAR REVIEW 2021-12-01 Dinakar, Jeremy Sabianist 10:22:00 [facility] ESOPHAGOGASTRODUODENOSCOPY (EGD) 2021-11-30 Elias Guzman 19:49:00 Hospital CBC WITH PLATELET AND DIFFERENTIAL 2021-11-30 Dinakar, Sati sade Sabianist 10:53:00 [facility] PROTHROMBIN TIME WITH INR 2021-11-30 Dinakar, Jeremy Method ist 10:53:00 [facility] BASIC METABOLIC PANEL 2021-11-30 Dinakar, Jeremy Sabianist 10:53:00 [facility] HEPATIC FUNCTION PANEL 2021-11-30 Dinakar, Jeremy Sabianist 10:53:00 [facility] PHOSPHORUS LEVEL 2021-11-30 Dinakar, Jeremy Sabianist 10:53:00 [facility] MAGNESIUM LEVEL 2021-11-30 Dinakar, Jeremy Sabianist 10:53:00 [facility] ESTIMATED GFR 2021-11-30 Dinakar, Jeremy Sabianist 10:53:00 [facility] SMEAR REVIEW 2021-11-30 Dinakar, Jeremy Sabianist 10:53:00 [facility] CBC WITH PLATELET AND DIFFERENTIAL 2021-11-29 Dinakar, Sati sh Sabianist 10:50:00 [facility] PROTHROMBIN TIME WITH INR 2021-11-29 Dinakar, Jeremy Method ist 10:50:00 [facility] BASIC METABOLIC PANEL 2021-11-29 Dinakar, Jeremy Sabianist 10:50:00 [facility] HEPATIC FUNCTION PANEL 2021-11-29 Dinakar, Jeremy Sabianist 10:50:00 [facility] PHOSPHORUS LEVEL 2021-11-29 Dinakar, Jeremy Sabianist 10:50:00 [facility] MAGNESIUM LEVEL 2021-11-29 Dinakar, Jeremy Sabianist 10:50:00 [facility] ESTIMATED GFR 2021-11-29 Dinakar, Jeremy Sabianist 10:50:00 [facility] SMEAR REVIEW 2021-11-29 Dinakar, Jeremy Sabianist 10:50:00 [facility] CBC WITH PLATELET AND DIFFERENTIAL 2021-11-28 Dinakar, Leah stuart Sabianist 09:28:00 [facility] PROTHROMBIN TIME WITH INR 2021-11-28 Dinakar, Jeremy Method ist 09:28:00 [facility] BASIC METABOLIC PANEL 2021-11-28 Dinakar, Jeremy Sabianist 09:28:00 [facility] HEPATIC FUNCTION PANEL 2021-11-28 Dinakar, Jeremy Sabianist 09:28:00 [facility] PHOSPHORUS LEVEL 2021-11-28 Dinakar, Jeremy Sabianist 09:28:00 [facility] MAGNESIUM LEVEL 2021-11-28 Dinakar, Jeremy Sabianist 09:28:00 [facility] ESTIMATED GFR 2021-11-28 Dinakar, Jeremy Sabianist 09:28:00 [facility] OCCULT BLOOD, STOOL 2021-11-27 ShellieeJefferson Sabianist 23:26:00 Hospital XR ABDOMEN 1 VW PORTABLE 2021-11-27 Myra Garcia odist 20:25:00 [facility] CBC WITH PLATELET AND DIFFERENTIAL 2021-11-27 Dinakar, Leah stuart Sabianist 09:07:00 [facility] PROTHROMBIN TIME WITH INR 2021-11-27 Dinakar, Jeremy Method ist 09:07:00 [facility] BASIC METABOLIC PANEL 2021-11-27 Dinakar, Jeremy Sabianist 09:07:00 [facility] HEPATIC FUNCTION PANEL 2021-11-27 Dinakar, Jeremy Sabianist 09:07:00 [facility] PHOSPHORUS LEVEL 2021-11-27 Dinakar, Jeremy Sabianist 09:07:00 [facility] MAGNESIUM LEVEL 2021-11-27 Dinakar, Jeremy Sabianist 09:07:00 [facility] HEMOGLOBIN A1C 2021-11-27 Dinakar, Jeremy Sabianist 09:07:00 [facility] ESTIMATED GFR 2021-11-27 Dinakar, Jeremy Sabianist 09:07:00 [facility] SMEAR REVIEW 2021-11-27 Jeremy Sandoval 09:07:00 [facility] BLOOD CULTURE, AEROBIC & ANAEROBIC 2021-11-27 [facility]ODY 2021-11-27 Leah Sandoval TITER 04:03:00 [facility] ZCOD- SEROLOGY PATIENT 2021-11-27 Jeremy Sandoval SURVEILLANCE 04:03:00 [facility] CTA ABD/PEL FOR BLEEDING 2021-11-27 Jefferson Skeltono dist 01:38:34 Hospital HEMOGLOBIN & HEMATOCRIT 2021-11-27 Jefferson Skelton Method ist 01:34:00 Hospital SMEAR REVIEW 2021-11-27 Jefferson Skelton 01:34:00 Hospital RESPIRATORY PATHOGEN PANEL WITH 2021-11-27 [place] COVID-19 RT-PCR 00:58:00 Hospital TYPE AND SCREEN 2021-11-27 Jefferson Skelton 00:30:00 Hospital PROTHROMBIN TIME WITH INR 2021-11-27 Jefferson Skelton odist 00:30:00 Hospital AMMONIA LEVEL 2021-11-27 Jefferson Skelton 00:30:00 Hospital ECG 12-LEAD 2021-11-27 Jefferson Skelton 00:29:32 Hospital ECG ED PRELIMINARY INTERPRETATION 2021-11-27 Jefferson Skelton 00:04:12 Hospital CBC WITH PLATELET AND DIFFERENTIAL 2021-11-26 Jefferson Skelton 21:32:00 Hospital COMPREHENSIVE METABOLIC PANEL 2021-11-26 Jefferson Skelton 21:32:00 Hospital LIPASE LEVEL 2021-11-26 Jefferson Skelton 21:32:00 Hospital HCG QUALITATIVE, SERUM SCREEN 2021-11-26 Jefferson Skelton 21:32:00 Hospital ESTIMATED GFR 2021-11-26 Pasquale Carbales Sabianist 21:32:00 [facility] SMEAR REVIEW 2021-11-26 Tu, Yen-Te Sabianist 21:32:00 [facility] CBC WITH PLATELET AND DIFFERENTIAL 2021-10-26 Nakia Cruz 11:26:00 Hospital PROTHROMBIN TIME WITH INR 2021-10-26 Nakia Cruz ist 11:26:00 [facility] BASIC METABOLIC PANEL 2021-10-26 Anand Arora Sabianist 11:26:00 [facility] ESTIMATED GFR 2021-10-26 Anand Arora Sabianist 11:26:00 [facility] SMEAR REVIEW 2021-10-26 Nakia Cruz Sabianist 11:26:00 Hospital CBC WITH PLATELET AND DIFFERENTIAL 2021-10-25 Nakia Cruz Sabianist 09:30:00 Hospital PROTHROMBIN TIME WITH INR 2021-10-25 Nakia Cruz ist 09:30:00 Hospital COMPREHENSIVE METABOLIC PANEL 2021-10-25 Nakia Cruz thodist 09:30:00 Hospital ESTIMATED GFR 2021-10-25 Nakia Cruz 09:30:00 Hospital MAGNESIUM LEVEL 2021-10-25 Nakia Cruzist 09:30:00 Hospital PHOSPHORUS LEVEL 2021-10-25 Nakia Cruzist 09:30:00 Hospital BILIRUBIN DIRECT 2021-10-25 Nakia Cruz 09:30:00 Hospital SMEAR REVIEW 2021-10-25 Nakia Cruz 09:30:00 Hospital CBC WITH PLATELET AND DIFFERENTIAL 2021-10-24 Nakia Cruzist 09:17:00 Hospital PROTHROMBIN TIME WITH INR 2021-10-24 Nakia Cruz ist 09:17:00 Hospital COMPREHENSIVE METABOLIC PANEL 2021-10-24 Nakia Cruz thodist 09:17:00 Hospital PHOSPHORUS LEVEL 2021-10-24 Nakia Cruzist 09:17:00 Hospital MAGNESIUM LEVEL 2021-10-24 Nakia Cruz 09:17:00 Hospital ESTIMATED GFR 2021-10-24 Nakia Cruz 09:17:00 Hospital SMEAR REVIEW 2021-10-24 Nakia Cruz Sabianist 09:17:00 Hospital ESOPHAGOGASTRODUODENOSCOPY (EGD) 2021-10-23 Elias Guzman Sabianist 17:25:00 Hospital CBC WITH PLATELET AND DIFFERENTIAL 2021-10-23 Nakia Cruzist 11:38:00 Hospital PROTHROMBIN TIME WITH INR 2021-10-23 Nakia Cruz Method ist 11:38:00 Hospital COMPREHENSIVE METABOLIC PANEL 2021-10-23 Nakia Cruz thodist 11:38:00 Hospital PHOSPHORUS LEVEL 2021-10-23 Nakia Cruz Sabianist 11:38:00 Hospital MAGNESIUM LEVEL 2021-10-23 Nakia Cruz Sabianist 11:38:00 Hospital ESTIMATED GFR 2021-10-23 Nakia Cruz Sabianist 11:38:00 Hospital SMEAR REVIEW 2021-10-23 Nakia Cruz Sabianist 11:38:00 Hospital TTE COMPLETE, W CONTRAST, W 2021-10-22 Myra Garcia ethodist DOPPLER ([id number]) 14:21:00 [facility] CBC WITH PLATELET AND DIFFERENTIAL 2021-10-22 Nakia Cruz Sabianist 10:31:00 Hospital PROTHROMBIN TIME WITH INR 2021-10-22 Nakia Cruz Method ist 10:31:00 [facility] COMPREHENSIVE METABOLIC PANEL 2021-10-22 Nakia Cruz thodist 10:31:00 Hospital PHOSPHORUS LEVEL 2021-10-22 Nakia Cruz Sabianist 10:31:00 Hospital MAGNESIUM LEVEL 2021-10-22 Nakia Cruz 10:31:00 [facility] THYROID STIMULATING HORMONE 2021-10-22 Nakia Cruz odist 10:31:00 Hospital T4 2021-10-22 Nakia Cruz 10:31:00 Hospital VITAMIN D 25 HYDROXY LEVEL 2021-10-22 Nakia Cruzo dist 10:31:00 Hospital ALPHA FETOPROTEIN 2021-10-22 Myra Garciaist 10:31:00 [facility] ESTIMATED GFR 2021-10-22 Nakia Cruz 10:31:00 Hospital SMEAR REVIEW 2021-10-22 Nakia Cruz 10:31:00 [facility] COVID-19 QUALITATIVE RT-PCR 2021-10-22 Nakia Cruz Meth odist 00:29:00 Hospital URINE CULTURE 2021-10-21 Nakia Cruz 22:46:00 Hospital URINALYSIS SCREEN AND MICROSCOPY, 2021-10-21 Nakia Cruz WITH REFLEX TO CULTURE 22:46:00 Hospital XR ABDOMEN 1 VW PORTABLE 2021-10-21 Myra Garcia odist 22:35:00 [facility] CT ABDOMEN PELVIS WO CONTRAST 2021-10-21 Nakia Cruz thodist 20:20:30 [facility]19 ANTI-SPIKE IGG ANTIBODY 2021-10-21 Nakia Cruz TITER 16:31:00 Hospital CBC WITH PLATELET AND DIFFERENTIAL 2021-10-21 Nakia Cruz 16:31:00 [facility] COMPREHENSIVE METABOLIC PANEL 2021-10-21 Nakia Cruz thodist 16:31:00 Hospital PROTHROMBIN TIME WITH INR 2021-10-21 Nakia Cruz ist 16:31:00 Hospital MAGNESIUM LEVEL 2021-10-21 Nakia Cruz 16:31:00 Hospital PHOSPHORUS LEVEL 2021-10-21 Nakia Cruz 16:31:00 Hospital LIPASE LEVEL 2021-10-21 Nakia Cruz 16:31:00 [place] [id number] SEROLOGY PATIENT 2021-10-21 Nakia Cruz SURVEILLANCE 16:31:00 Hospital ESTIMATED GFR 2021-10-21 Nakia Cruz 16:31:00 [facility] XR KNEE 3 VW RIGHT 2021-09-29 [facility] 04:[facility]00 [facility] NOTICE OF PRIVACY PRACTICES 2021-09-29 Doctor Unasslis, U niversity of 02:46:43 [place] [facility] CONSENT/REFUSAL FOR DIAGNOSIS AND 2021-09-29 Doctor Buck olmedo [facility] 02:46:16 [place] [facility] XR KNEE 3 VW LEFT 2021-04-02 [facility] o f 20:10:39 F [facility] CONSENT/REFUSAL FOR DIAGNOSIS AND 2021-04-02 Doctor Buck olmedo [facility] 17:59:31 [place] [facility] ASSIGNMENT OF BENEFITS 2021-03-10 Doctor Unasslis, Univer sity of 20:29:46 [place] [facility] HC COMPLETE BLD COUNT W/AUTO DIFF 2021-02-20 Kaylynn Suresh 10:53:00 [facility] BASIC METABOLIC PANEL 2021-02-20 Kaylynn Suresh 10:53:00 [facility] HEPATIC FUNCTION PANEL 2021-02-20 Kaylynn Suresh 10:53:00 [facility] MAGNESIUM LEVEL 2021-02-20 Kaylynn Suresh 10:53:00 [facility] PHOSPHORUS LEVEL 2021-02-20 Kaylynn Suresh 10:53:00 [facility] PROTHROMBIN TIME WITH INR 2021-02-20 Rosemary Suresh ist 10:53:00 [facility] ESTIMATED GFR 2021-02-20 Kaylynn Suresh 10:53:00 [facility] SMEAR REVIEW 2021-02-20 Kaylynn Suresh 10:53:00 [facility] MRI CHOLANGIOGRAM WO CONTRAST 2021-02-20 Jeremy Sandoval Va thodist 00:15:00 [facility] VENIPUNC NEED PHYS SKILL,DX OR RX 2021-02-19 Latanya Ring Sabianist 16:10:21 Hospital HC COMPLETE BLD COUNT W/AUTO DIFF 2021-02-19 Kaylynn Suresh 11:00:00 [facility] BASIC METABOLIC PANEL 2021-02-19 Kaylynn Suresh 11:00:00 [facility] HEPATIC FUNCTION PANEL 2021-02-19 Kaylynn Suresh 11:00:00 [facility] MAGNESIUM LEVEL 2021-02-19 Kaylynn Suresh 11:00:00 [facility] PHOSPHORUS LEVEL 2021-02-19 Kaylynn Suresh 11:00:00 [facility] PROTHROMBIN TIME WITH INR 2021-02-19 Rosemary Suresh ist 11:00:00 [facility] ESTIMATED GFR 2021-02-19 Kaylynn Suresh 11:00:00 [facility] SMEAR REVIEW 2021-02-19 Kaylynn Suresh 11:00:[address] [facility] CT ABDOMEN PELVIS WO CONTRAST 2021-02-19 Me Demetrice thodist 03:25:00 [facility] URINE CULTURE 2021-02-19 Kaylynn Suresh 02:27:00 [facility] URINALYSIS SCREEN AND MICROSCOPY, 2021-02-19 Kaylynn Suresh WITH REFLEX TO CULTURE 02:27:00 [facility] BLOOD CULTURE, AEROBIC & ANAEROBIC 2021-02-18 Kaylynn Suresh 23:25:00 [facility] TYPE AND SCREEN 2021-02-18 Dre Mayer 23:25:00 [facility] COVID-19 ANTI-SPIKE IGG ANTIBODY 2021-02-18 Kaylynn Suresh TITER 22:57:00 [facility] COVID-19 SEROLOGY PATIENT 2021-02-18 Rosemary Suresh ist SURVEILLANCE 22:57:00 [facility] HC COMPLETE BLD COUNT W/AUTO DIFF 2021-02-18 Kaylynn Suresh 22:57:00 [facility] PROTHROMBIN TIME WITH INR 2021-02-18 Rosemary Suresh 22:57:00 [facility] COMPREHENSIVE METABOLIC PANEL 2021-02-18 Me Demetrice thodist 22:57:00 [facility] LACTIC ACID LEVEL 2021-02-18 Kaylynn Suresh 22:57:00 [facility] MAGNESIUM LEVEL 2021-02-18 Kaylynn Suresh 22:57:00 [facility] PHOSPHORUS LEVEL 2021-02-18 Kaylynn Suresh 22:57:00 [facility] LIPASE LEVEL 2021-02-18 Kaylynn Suresh 22:57:00 [facility] ESTIMATED GFR 2021-02-18 Kaylynn Suresh 22:57:00 [facility] SMEAR REVIEW 2021-02-18 Kaylynn Suresh 22:57:00 [facility] PHOSPHORUS 2020-10-03 Brenda Teixeira [place] of 08:52:00 [facility] MAGNESIUM 2020-10-03 Puneet [facility] of 08:52:00 [facility] COMP. METABOLIC PANEL ([id number]) 2020-10-03 Brenda Teixeira Un iversity of 08:52:00 [facility] CBC WITH DIFF 2020-10-03 Brenda Teixeira [place] of 08:52:00 [facility] COMP. METABOLIC PANEL ([id number]) 2020-10-02 Brenda Teixeira Un iversity of 08:39:00 [facility] CBC WITH DIFF 2020-10-02 Brenda Teixeira [place] of 08:39:00 [facility] US DUPLEX VENOUS ARM LEFT - BY 2020-10-01 [facility] 16:22:58 [facility] COMP. METABOLIC PANEL ([id number]) 2020-10-01 Tomasa Rucker iversity of 07:45:00 [facility] CBC WITH DIFF 2020-10-01 Tomasa Rucker [place] of 07:45:00 [facility] TROPONIN I 2020-09-30 [facility] of 10:56:00 [facility] COMP. METABOLIC PANEL ([id number]) 2020-09-30 Shaina Pinto iversity of 10:56:00 [facility] CBC WITH DIFF 2020-09-30 Millie [facility] of 10:56:00 [facility] N-TERMINAL PRO-BNP 2020-09-30 [facility] 08:[facility]00 [facility] OCCULT (GUAIAC) BLOOD 2020-09-30 Millie [facility] of 02:10:00 [facility] FECAL LEUKOCYTES 2020-09-30 Millie [facility] of 02:10:00 [facility] CLOSTRIDIUM DIFFICILE TOXIN 2020-09-30 Shaina Pinto [facility] ersity of 02:10:00 [facility] FECAL PATHOGENS BY PCR 2020-09-30 Millie [facility] y of 02:10:00 [facility] POCT GLUCOSE (AUTOMATED) 2020-09-30 Rene Evans [facility] sity of 00:35:00 [facility] BASIC METABOLIC PANEL (NA, K, CL, 2020-09-29 Shaina Pinto [place] of CO2, GLUCOSE, BUN, CREATININE, CA) 21:11:00 [facility] HEMOGLOBIN 2020-09-29 Tomasa Rucker of 21:11:00 [facility] TRANSTHORACIC ECHO (TTE) COMPLETE 2020-09-29 [facility] of 16:03:00 [facility] HB ECG ROUTINE & RHYTHM STRIP 2020-09-29 Shaina Pinto iversity of 11:18:58 [facility] OSMOLALITY URINE 2020-09-29 Millie [facility] of 08:56:00 [facility] URINE CULTURE 2020-09-29 Millie, [facility] of 08:56:00 [facility] SODIUM, URINE RANDOM 2020-09-29 Millie, [facility] of 08:56:00 [facility] PROTEIN CREAT RATIO URINE RANDOM 2020-09-29 Millie, [facility] of 08:56:00 [facility] BLOOD CULTURE SCREEN 2020-09-29 Millie [facility] of 08:32:00 [facility] LACTIC ACID WHOLE BLOOD 2020-09-29 Millie [facility] of 08:32:00 [facility] VITAMIN B12, LEVEL 2020-09-29 Millie [facility] of 08:31:00 [facility] C-REACTIVE PROTEIN 2020-09-29 Millie [facility] of 08:31:00 [facility] IRON PANEL 2020-09-29 Mill[facility] of 08:31:00 [facility] SEDIMENTATION RATE 2020-09-29 Millie [facility] of 08:31:00 [facility] DIFF CONSULT INTERPRETATION 2020-09-29 Millie [facility] ersity of 08:31:00 [facility] CBC WITH DIFF 2020-09-29 Millie [facility] of 08:31:00 [facility] PROTHROMBIN TIME / INR 2020-09-29 Millie [facility] y of 08:31:00 [facility] N-TERMINAL PRO-BNP 2020-09-29 Millie [facility] of 08:31:00 [facility] VITAMIN D, 25-OH 2020-09-29 Millie [facility] of 08:31:00 [facility] PROCALCITONIN 2020-09-29 Millei, [facility] of 08:31:00 [facility] COVID-19 (ID NOW RAPID TESTING) 2020-09-29 Rene Evans [facility] of 05:10:00 [facility] LAB ONLY COVID INTERPRETATION 2020-09-29 Rene Evans [facility]iversity of 05:10:00 [facility] CT ABDOMEN PELVIS W CONTRAST 2020-09-29 Rene Evans Un iversity of 04:56:31 [facility] URINALYSIS 2020-09-29 Rene Evans [place] of 04:19:00 [facility] PHOSPHORUS 2020-09-29 Shaina Pinto [place] of 03:54:00 [facility] CREATINE KINASE 2020-09-29 Shaina Pinto [place] of 03:54:00 [facility] URIC ACID 2020-09-29 Shaina Pinto [place] of 03:54:00 [facility] LIPASE 2020-09-29 Rene Evans [place] of 03:54:00 [facility] MAGNESIUM 2020-09-29 Millie sharad [place] of 03:54:00 [facility] FERRITIN SERUM 2020-09-29 Shaina Pinto [place] of 03:54:00 [facility] TROPONIN I 2020-09-29 [facility] of 03:54:00 [facility] THYROID STIMULATING HORMONE 2020-09-29 Shaina Pinto [facility] ersity of 03:54:00 [facility] COMP. METABOLIC PANEL ([id number]) 2020-09-29 Rene Evans U niversity of 03:54:00 [facility] LIPID PANEL ([id number])(TOTAL 2020-09-29 Shaina Pinto [facility] sity of CHOLESTEROL, TRIGLYCERIDES, HDL) 03:54:00 [facility] CBC WITH DIFF 2020-09-29 Rene Evans [place] of 03:54:00 [facility] GLYCOSYLATED HEMOGLOBIN (A1C) 2020-09-29 Shaina Pinto Un iversity of 03:54:00 [facility] N-TERMINAL PRO-BNP 2020-09-29 Shaina Pinto [place] of 03:54:00 [facility] CONSENT/REFUSAL FOR DIAGNOSIS AND 2020-09-29 Doctor Buck olmedo, [facility] 03:18:51 [place] [facility] NOTICE OF PRIVACY PRACTICES 2020-09-29 Doctor Unassigned, U niversity of 03:18:30 [place] [facility] CT ABDOMEN PELVIS W CONTRAST 2019-08-11 Corby Ca Uni versity of 14:50:46 [facility] COMP. METABOLIC PANEL ([id number]) 2019-08-11 Shaina Pinto iversity of 08:00:00 [facility] CBC WITH DIFFERENTIAL 2019-08-11 Shaina Pinto of 08:00:00 [facility] CBC WITH DIFFERENTIAL 2019-08-11 Shaina Pinto of 08:00:00 [facility] XR SMALL BOWEL SERIES 2019-08-10 Valente Piña of 21:18:47 [facility] XR ABDOMEN 1 VW 2019-08-10 Shaina Pinto [place] of 11:52:39 [facility] PHOSPHORUS 2019-08-10 Shaina Pinto [place] of 11:11:00 [facility] CREATINE KINASE 2019-08-10 Millie, Shaina [place] of 11:11:00 [facility] AMYLASE 2019-08-10 Shaina Pinto [place] of 11:11:00 [facility] LIPASE 2019-08-10 Shaina Pinto [place] of 11:11:00 [facility] MAGNESIUM 2019-08-10 Shaina Pnito [place] of 11:11:00 [facility] TEST, SERUM 2019-08-10 Shaina Pinto of 11:11:00 [facility] THYROID STIMULATING HORMONE 2019-08-10 Shaina Pinto [facility] ersity of 11:11:00 [facility] COMP. METABOLIC PANEL ([id number]) 2019-08-10 Shaina Pinto Un iversity of 11:11:00 [facility] LIPID PANEL ([id number])(TOTAL 2019-08-10 Shaina Pinto [facility] sity of CHOLESTEROL, TRIGLYCERIDES, HDL) 11:11:00 [facility] SEDIMENTATION RATE 2019-08-10 Shaina Pinto of 11:11:00 [facility] CBC WITH DIFFERENTIAL 2019-08-10 Shaina Pinto of 11:11:00 [facility] GLYCOSYLATED HEMOGLOBIN (A1C) 2019-08-10 Shaina Pinto Un iversity of 11:11:00 [facility] PROTHROMBIN TIME / INR 2019-08-10 Shaina Pinto [facility] of 11:11:00 [facility] CORONAVIRUS COVID-19 TESTING 2019-08-10 Shaina Pinto Uni versity of 09:04:00 [facility] Plan of Care Planned Activity Planned Date Details Comments Source Future Scheduled 2022-04-[address] [facility] Test 09:24:01 (procedure) [code = [id number]] Future Scheduled 2022-04-03 Screening for [facility] Test 09:24:01 malignant neoplasm of cervix (procedure) [code = [id number]] Future Scheduled 2022-04-03 BREAST CANCER [facility] Test 09:24:01 SCREENING [code = BREAST CANCER SCREENING] Future Scheduled 2022-04-[address] [facility] Test 09:24:01 [code = COLONOSCOPY SCREENING] Future Scheduled 2022-04-03 SHINGLES VACCINES (1 [facility] Test 09:24:01 of 2) [code = SHINGLES VACCINES (1 of 2)] Future Scheduled 2022-04-03 COVID-19 VACCINE (3 - [facility] Test 09:24:01 Booster for Moderna series) [code = COVID-19 VACCINE (3 - Booster for Moderna series)] Future Scheduled 2022-04-03 HEPATITIS B VACCINES [facility] Test 09:24:01 (1 of 3 - Risk 3-dose series) [code = HEPATITIS B VACCINES (1 of 3 - Risk 3-dose series)] Future Scheduled 2022-04-03 Pneumococcal Vaccine: [facility] Test 09:24:01 Pediatrics (0 to 5 Years) and At-Risk Patients (6 to 64 Years) (2 - PCV) [code = Pneumococcal Vaccine: Pediatrics (0 to 5 Years) and At-Risk Patients (6 to 64 Years) (2 - PCV)] Future Scheduled 2022-03-[address] [facility] Test 03:54:02 (procedure) [code = 156630252] Future Scheduled 2022-03-25 BREAST CANCER [facility] Test 03:54:02 SCREENING [code = BREAST CANCER SCREENING] Future Scheduled 2022-03-[address] [facility] Test 03:54:02 [code = COLONOSCOPY SCREENING] Future Scheduled 2022-03-25 SHINGLES VACCINES (1 Met [facility] Test 03:54:02 of 2) [code = SHINGLES VACCINES (1 of 2)] Future Scheduled 2022-03-25 COVID-19 VACCINE (3 - [facility] Test 03:54:02 Booster for Moderna series) [code = COVID-19 VACCINE (3 - Booster for Moderna series)] Future Scheduled 2022-03-25 HEPATITIS B VACCINES Met [facility] Test 03:54:02 (1 of 3 - Risk 3-dose series) [code = HEPATITIS B VACCINES (1 of 3 - Risk 3-dose series)] Future Scheduled 2022-03-25 Pneumococcal Vaccine: [facility] Test 03:54:02 Pediatrics (0 to 5 Years) and At-Risk Patients (6 to 64 Years) (2 - PCV) [code = Pneumococcal Vaccine: Pediatrics (0 to 5 Years) and At-Risk Patients (6 to 64 Years) (2 - PCV)] Future Scheduled 2022-03-[address] [facility] Test 14:24:37 (procedure) [code = 232974818] Future Scheduled 2022-03-15 Screening for [facility] Test 14:24:37 malignant neoplasm of cervix (procedure) [code = 475011816] Future Scheduled 2022-03-15 BREAST CANCER [facility] Test 14:24:37 SCREENING [code = BREAST CANCER SCREENING] Future Scheduled 2022-03-[address] [facility] Test 14:24:37 [code = COLONOSCOPY SCREENING] Future Scheduled 2022-03-15 SHINGLES VACCINES (1 Met [facility] Test 14:24:37 of 2) [code = SHINGLES VACCINES (1 of 2)] Future Scheduled 2022-03-15 COVID-19 VACCINE (3 - [facility] Test 14:24:37 Booster for Moderna series) [code = COVID-19 VACCINE (3 - Booster for Moderna series)] Future Scheduled 2022-03-15 HEPATITIS B VACCINES Met [facility] Test 14:24:37 (1 of 3 - Risk 3-dose series) [code = HEPATITIS B VACCINES (1 of 3 - Risk 3-dose series)] Future Scheduled 2022-03-15 Pneumococcal Vaccine: [facility] Test 14:24:37 Pediatrics (0 to 5 Years) and At-Risk Patients (6 to 64 Years) (2 - PCV) [code = Pneumococcal Vaccine: Pediatrics (0 to 5 Years) and At-Risk Patients (6 to 64 Years) (2 - PCV)] Future Scheduled 2022-01-15 Pneumococcal Vaccine: [facility] Test 07:35:31 Pediatrics (0 to 5 Years) and At-Risk Patients (6 to 64 Years) (1 - PCV) [code = Pneumococcal Vaccine: Pediatrics (0 to 5 Years) and At-Risk Patients (6 to 64 Years) (1 - PCV)] Future Scheduled 2022-01-[address] [facility] Test 07:35:31 (procedure) [code = [id number]] Future Scheduled 2022-01-15 Screening for [facility] Test 07:35:31 malignant neoplasm of cervix (procedure) [code = 666031060] Future Scheduled 2022-01-15 BREAST CANCER [facility] Test 07:35:31 SCREENING [code = BREAST CANCER SCREENING] Future Scheduled 2022-01-[address] [facility] Test 07:35:31 [code = COLONOSCOPY SCREENING] Future Scheduled 2022-01-15 SHINGLES VACCINES (1 Met [facility] Test 07:35:31 of 2) [code = SHINGLES VACCINES (1 of 2)] Future Scheduled 2022-01-15 COVID-19 VACCINE (3 - [facility] Test 07:35:31 Booster for Moderna series) [code = COVID-19 VACCINE (3 - Booster for Moderna series)] Future Scheduled 2022-01-15 HEPATITIS B VACCINES Met [facility] Test 07:35:31 (1 of 3 - Risk 3-dose series) [code = HEPATITIS B VACCINES (1 of 3 - Risk 3-dose series)] Future Scheduled 2022-01-13 Pneumococcal Vaccine: [facility] Test 14:41:05 Pediatrics (0 to 5 Years) and At-Risk Patients (6 to 64 Years) (1 - PCV) [code = Pneumococcal Vaccine: Pediatrics (0 to 5 Years) and At-Risk Patients (6 to 64 Years) (1 - PCV)] Future Scheduled 2022-01-[address] [facility] Test 14:41:05 (procedure) [code = 562932080] Future Scheduled 2022-01-13 Screening for [facility] Test 14:41:05 malignant neoplasm of cervix (procedure) [code = 243923047] Future Scheduled 2022-01-13 BREAST CANCER [facility] Test 14:41:05 SCREENING [code = BREAST CANCER SCREENING] Future Scheduled 2022-01-[address] [facility] Test 14:41:05 [code = COLONOSCOPY SCREENING] Future Scheduled 2022-01-13 SHINGLES VACCINES (1 Met [facility] Test 14:41:05 of 2) [code = SHINGLES VACCINES (1 of 2)] Future Scheduled 2022-01-13 COVID-19 VACCINE (3 - [facility] Test 14:41:05 Booster for Moderna series) [code = COVID-19 VACCINE (3 - Booster for Moderna series)] Future Scheduled 2022-01-13 HEPATITIS B VACCINES Met [facility] Test 14:41:05 (1 of 3 - Risk 3-dose series) [code = HEPATITIS B VACCINES (1 of 3 - Risk 3-dose series)] Future Scheduled 2021-12-24 Pneumococcal Vaccine: [facility] Test 07:34:42 Pediatrics (0 to 5 Years) and At-Risk Patients (6 to 64 Years) (1 - PCV) [code = Pneumococcal Vaccine: Pediatrics (0 to 5 Years) and At-Risk Patients (6 to 64 Years) (1 - PCV)] Future Scheduled 2021-12-[address] [facility] Test 07:34:42 (procedure) [code = 175381861] Future Scheduled 2021-12-24 Screening for [facility] Test 07:34:42 malignant neoplasm of cervix (procedure) [code = 131587107] Future Scheduled 2021-12-24 BREAST CANCER [facility] Test 07:34:42 SCREENING [code = BREAST CANCER SCREENING] Future Scheduled 2021-12-[address] [facility] Test 07:34:42 [code = COLONOSCOPY SCREENING] Future Scheduled 2021-12-24 SHINGLES VACCINES (1 Met [facility] Test 07:34:42 of 2) [code = SHINGLES VACCINES (1 of 2)] Future Scheduled 2021-12-24 COVID-19 VACCINE (3 - [facility] Test 07:34:42 Booster for Moderna series) [code = COVID-19 VACCINE (3 - Booster for Moderna series)] Future Scheduled 2021-12-24 HEPATITIS B VACCINES Met [facility] Test 07:34:42 (1 of 3 - Risk 3-dose series) [code = HEPATITIS B VACCINES (1 of 3 - Risk 3-dose series)] Future Scheduled 2021-12-09 Pneumococcal Vaccine: [facility] Test 13:56:39 Pediatrics (0 to 5 Years) and At-Risk Patients (6 to 64 Years) (1 - PCV) [code = Pneumococcal Vaccine: Pediatrics (0 to 5 Years) and At-Risk Patients (6 to 64 Years) (1 - PCV)] Future Scheduled 2021-12-[address] [facility] Test 13:56:39 (procedure) [code = 014995745] Future Scheduled 2021-12-09 Screening for [facility] Test 13:56:39 malignant neoplasm of cervix (procedure) [code = 594528032] Future Scheduled 2021-12-09 BREAST CANCER [facility] Test 13:56:39 SCREENING [code = BREAST CANCER SCREENING] Future Scheduled 2021-12-[address] [facility] Test 13:56:39 [code = COLONOSCOPY SCREENING] Future Scheduled 2021-12-09 SHINGLES VACCINES (1 Met [facility] Test 13:56:39 of 2) [code = SHINGLES VACCINES (1 of 2)] Future Scheduled 2021-12-09 COVID-19 VACCINE (3 - [facility] Test 13:56:39 Booster for Moderna series) [code = COVID-19 VACCINE (3 - Booster for Moderna series)] Future Scheduled 2021-12-09 HEPATITIS B VACCINES Met [facility] Test 13:56:39 (1 of 3 - Risk 3-dose series) [code = HEPATITIS B VACCINES (1 of 3 - Risk 3-dose series)] Future Scheduled 2021-12-09 INFLUENZA VACCINE Method [facility] Test 13:56:39 [code = INFLUENZA VACCINE] Encounters Start End Encounter Admission Attending Care Care Encounter Source Date/Time Date/Time Type Type Clinicians Facility Department ID 2022-03-25 Outpatient SACHA Souza [facility] [id number] Common 12:49:01 Annalise [facility] 2022-03-24 Outpatient SACHA Souza [facility] [id number] Common 11:16:01 Annalise [facility] 2022-03-23 Outpatient Francisca [facility] [id number] Common 15:33:00 a, Madhu [facility] 2021-10-13 Outpatient Francisca [facility] [id number] Common 14:25:01 a, Madhu [facility] 2021-05-06 Outpatient Kattegummul STLMLC ST[facility] [id number] Common 14:30:56 a, Madhu [facility] 2021-05-06 Outpatient Kattegummul STLMLC STLMLC [id number] Common 14:26:04 a, Madhu 79034 [facility] 2021-05-06 Outpatient Kattegummul STLMLC STLMLC [id number] Common 14:05:28 a, Madhu 91722 [facility] 2021-05-06 Outpatient Kattegummul STLMLC STLMLC [id number] Common 13:37:29 a, Madhu 47900 [facility] 2021-05-06 Outpatient Kennard, STLMLC STLMLC [id number] Common 13:36:02 Annalise 15752 [facility] 2021-05-06 Outpatient Kennard, STLMLC STLMLC [id number] Common 11:25:36 Annalise 11283 [facility] 2021-02-[address] [facility] [id number] Univers 02:25:27 [facility] 2022-03-17 2022-03-17 Documentat Ijir, 1.2.840.1 [id number] Methodi 00:00:00 00:00:00 ion Rhoda 09715.1.[address] 3.430.2.7 Hospit a .3.799095 l .8 2022-03-17 2022-03-17 Documentat Ijir, 1.2.840.1 [id number] [id number] Methodi 00:00:00 00:00:[address]oda 34203.1.[address] 3.430.2.7 Hospit a .3.695384 l .8 2022-02-25 2022-02-27 Emergency RehrerStevo 1.2.840.1 10 [id number] Methodi 12:36:00 18:45:00 Jeremy Sandoval [address]24.1.[address] 3.430.2.7 Hospit a .3.846397 l .8 2022-02-25 2022-02-27 Emergency RehrerStevo 1.2.840.1 10 [id number] Methodi 12:36:00 18:45:00 Jeremy Sandoval 54062.1.[address] 3.430.2.7 Hospit a .3.879343 l .8 2022-02-25 2022-02-25 Travel 1.2.840.1 1.2.612.774 5958 434124 Methodi 00:00:00 00:00:[address] 3.430.2.7 0.2.7.3.698 Ho spita .3.761934 084.8 l .8 2022-02-25 2022-02-25 Travel 1.2.840.1 1.2.039.891 2325 723478 Methodi 00:00:00 00:00:[address] 3.430.2.7 0.2.7.3.698 Ho spita .3.385440 084.8 l .8 2022-02-15 2022-02-15 Emergency X [facility] ERT [id number] Univers 13:44:00 16:34:[address] [facility] 2022-02-15 2022-02-15 Emergency [facility] 1.2.820.603 1672 7602 Univers 13:44:00 16:34:00 Florian WHITT 350.1.13.[address] [facility] 4.2.7.2.686 [facility] [id number] [address] 2022-01-31 2022-02-04 [facility] Rolando Olivier 1.2.840.1 79273 1027 [id number] Methodi 18:11:00 16:36:00 Encounter Bebeto Ward 77330.1.[address] Nakia Cruz 3.430.2.7 Hos alvaro .3.363787 l .8 2022-01-31 2022-02-04 [facility] 1.2.840.1 [id number] 1027 [id number] Methodi 18:11:00 16:36:00 Encounter Bebeto Ward 23545.1.[address] Trippg 3.430.2.7 Hos alvaro .3.121975 l .8 2022-02-03 2022-02-03 Anesthesia Consuelo, Odavid 1.2.840.1 [id number] Methodi 14:37:00 15:02:00 Event HeckBebeto wilson 67813.1.[address] 3.430.2.7 Hospit a .3.386911 l .8 2022-02-03 2022-02-03 Anesthesia Consuelo Aziza 1.2.840.1 [id number] Methodi 14:37:00 15:02:00 Event Bebeto Heck 98652.1.[address] 3.430.2.7 Hospit a .3.104028 l .8 2022-02-03 2022-02-03 Surgery Sanches, 1.2.840.1 [id number] 9219 Methodi 14:30:00 15:00:00 Coe M. 06029.1.[address] 3.430.2.7 Hospit a .3.154093 l .8 2022-02-03 2022-02-03 Surgery Sanches, 1.2.840.1 [id number] 677349 0085 Methodi 14:30:00 15:00:00 [place]326.1.[address] 3.430.2.7 Hospit a .3.893250 l .8 2022-02-02 2022-02-02 Prep for Sanches, 1.2.840.1 [id number] 95763 50733 Methodi 00:00:00 00:00:00 Surgery Coe M. 51323.1.[address] 3.430.2.7 Hospit a .3.377918 l .8 2022-02-02 2022-02-02 Prep for Sanches, 1.2.840.1 [id number] 33208 57847 Methodi 00:00:00 00:00:00 Surgery Carolin Diaz 93722.1.[address] 3.430.2.7 Hospit a .3.091400 l .8 2022-01-01 2022-01-06 [facility] 1.2.840 .1 [id number] Methodi 23:18:00 19:11:00 Encounter Nakia Cruz 82765.1.[address] [facility] 3.430.2.7 Hospita .3.862274 l .8 2022-01-01 2022-01-06 [facility] 1.2.840 .1 [id number] Methodi 23:18:00 19:11:00 Encounter Nakia Cruz 11619.1.1 374 [facility] 3.430.2.7 Hospita .3.652791 l .8 2022-01-05 2022-01-05 Surgery [facility], 1.2.840.1 [id number] 16705 27553 Methodi 16:00:00 16:30:[address] 3.430.2.7 Hospit a .3.712358 l .8 2022-01-05 2022-01-05 Surgery Duchini, 1.2.840.1 [id number] 35308 76448 Methodi 16:00:00 16:30:[address] 3.430.2.7 Hospit a .3.997860 l .8 2022-01-05 2022-01-05 Anesthesia Handy Dietrich 1.2.840 .1 [id number] Methodi 15:55:00 16:18:00 Event Bebeto Heck 17039.1.[address] 3.430.2.7 Hospit a .3.220142 l .8 2022-01-05 2022-01-05 Anesthesia Handy Dietrich 1.2.840 .1 [id number] [id number] Methodi 15:55:00 16:18:00 Event Bebeto Heck 33040.1.[address] 3.430.2.7 Hospit a .3.601271 l .8 2022-01-02 2022-01-02 Travel 1.2.840.1 1.2.862.280 2096 225746 Methodi 00:00:00 00:00:[address] 3.430.2.7 0.2.7.3.698 Ho spita .3.234100 084.8 l .8 2022-01-02 2022-01-02 Travel 1.2.840.1 1.2.976.012 5407 327227 Methodi 00:00:00 00:00:[address] 3.430.2.7 0.2.7.3.698 Ho spita .3.698273 084.8 l .8 2021-12-11 2021-12-18 [facility] Stevo Zackary 1.2.840.1 104 [id number] [id number] Methodi 16:59:00 17:46:00 Encounter Jeremy Sandoval 99651.1.[address] Ward, Bebeto 3.430.2.7 Hospita .3.898464 l .8 2021-12-11 2021-12-18 [facility]1 104 576469 [id number] Methodi 16:59:00 17:46:00 Encounter Jeremy Sandoval 61672.1.[address] Ward, Bebeto 3.430.2.7 Hospita .3.273981 l .8 2021-11-26 2021-12-03 [facility] 1.2.840.1 21021 1027 [id number] Methodi 16:08:00 14:06:00 Encounter Jeremy Sandoval 14243.1.[address] Jose, Ahmed Sp 3.430.2.7 Hospita Li, Nakia .3.953737 l .8 2021-11-26 2021-12-03 [facility] 1.2.840.1 45913 1027 [id number] Methodi 16:08:00 14:06:00 Encounter MichelJose hernandezgenevieve Desouza 24130.1.[address] Willian Garcia 3.430.2.7 Hospita Nakia Cruz .3.903389 l .8 2021-11-30 2021-11-30 Anesthesia Lito Trujillonorth 1.2.840.1 1 [id number] Methodi 14:50:00 15:11:00 Event Feng Burgos 83438.1.[address] 3.430.2.7 Hospit a .3.482390 l .8 2021-11-30 2021-11-30 Anesthesia Ronnie, Mahnaz 1.2.840.1 1 [id number] Methodi 14:50:00 15:11:00 Event Feng Burgos 16929.1.[address] 3.430.2.7 Hospit a .3.027656 l .8 2021-11-30 2021-11-30 Surgery Duchini, 1.2.840.1 [id number] 37438 01553 Methodi 14:30:00 15:00:[address] 3.430.2.7 Hospit a .3.324120 l .8 2021-11-30 2021-11-30 Surgery Duchini, 1.2.840.1 [id number] 05800 15224 Methodi 14:30:00 15:00:[address] 3.430.2.7 Hospit a .3.304285 l .8 2021-10-21 2021-10-26 [facility] Sharita Suresh 1.2.840.1 [id number] Methodi 09:04:00 14:43:00 Encounter Nakia Cruz 93061.1.[address] Anand Aroras 3.430.2.7 Hospita .3.656875 l .8 2021-10-21 2021-10-26 [facility] 1.2.840.1 [id number] Methodi 09:04:00 14:43:00 Encounter Nakia Cruz 48397.1.[address] Anand Aroras 3.430.2.7 Hospita .3.233279 l .8 2021-10-23 2021-10-23 Surgery Duchini, 1.2.840.1 [id number] 83204 28555 Methodi 12:30:00 13:30:[address] 3.430.2.7 Hospit a .3.761692 l .8 2021-10-23 2021-10-23 Surgery Duchini, 1.2.840.1 [id number] 02907 56665 Methodi 12:30:00 13:30:[address] 3.430.2.7 Hospit a .3.565799 l .8 2021-10-23 2021-10-23 Anesthesia Aziza Cordero 1.2.840.1 [id number] [id number] Methodi 12:25:00 12:53:[address] 3.430.2.7 Hospit a .3.340665 l .8 2021-10-23 2021-10-23 Anesthesia Aziza Cordero 1.2.840.1 797538425 [id number] Methodi 12:25:00 12:53:[address] 3.430.2.7 Hospit a .3.017868 l .8 2021-10-21 2021-10-21 Travel 1.2.840.1 1.2.495.101 2833 356567 Methodi 00:00:00 00:00:[address] 3.430.2.7 0.2.7.3.698 Ho spita .3.435924 084.8 l .8 2021-10-21 2021-10-21 Travel 1.2.840.1 1.2.345.764 3248 225512 Methodi 00:00:00 00:00:[address] 3.430.2.7 0.2.7.3.698 Ho spita .3.427132 084.8 l .8 2021-09-28 2021-09-29 Emergency X Sukhdve KOENIG RUST ERT [id number] [id number] Univers 22:03:00 00:15:00 ity of [facility] 2021-09-28 2021-09-29 Emergency CharlesSukhdev RUST 1.2.840.114 [id number] Univers 22:03:00 00:15:00 Mary WHITT 350.1.13.10 i ty of [place] [phone] [facility] [address] 2021-09-28 2021-09-28 Orders Doctor VERONIQUE 1.2.840.114 [id number] Univers 00:00:00 00:00:00 Only Unassigned, GONZALO 350.1.13.10 ity of [place] [facility] 4.2.7.2.686 Quang as [phone] [facility] [address] Branch 2021-04-07 2021-04-07 Letter Orthopedic RUST 1.2.840.114 900 [id number] Univers 00:00:00 00:00:00 (Out) Clinic SPECIALTY 350.1.13.10 ity of [place]7.2.686 [place] [facility] AT [phone] Va dical CHERRY CREEKTammi [address] [facility] 2021-04-02 2021-04-02 Emergency [facility] [id number] Univers 12:58:00 15:25:00 AZALEA ity of [facility] 2021-04-02 2021-04-02 Emergency Beatriz RUST 1.2.840.114 [id number] Univers 12:58:00 15:25:00 Azalea WHITT 350.1.13.10 ity of [place] 4.2.7.2.686 [facility] [phone] [facility] [address] 2021-03-11 2021-03-11 Telephone VERONIQUE Cruz 1.2.525.219 2354 9674 Univers 00:00:00 00:00:00 Frances SÁNCHEZ 350.1.13.10 it y of [facility] 4.2.7.2.686 Quang as [phone] [facility] 0[address] Branch 2021-03-10 2021-03-10 Outpatient Sami SHEFFIELD [facility] [id number] Univers 14:45:00 14:51:40 [facility] 2021-[facility] 2021-03-10 Laboratory Only, Ang Db Test RUST 1.2.8 40.114 [id number] Univers 14:29:53 14:44:53 Only Unknown, Attending HEALTH 350.1.13.10 ity [facility] 4.2.7.2.686 Quang as MARINA?BLEA [phone] Va dical [address] MEDICAL OFFICE BUILDING 2021-03-10 2021-03-10 Orders Doctor VERONIQUE 1.2.840.114 [id number] Univers 00:00:00 00:00:00 Only Unassigned, GONZALO 350.1.13.10 ity of [place] [facility] 4.2.7.2.686 Quang as [phone] [facility] 009 [place] 2021-02-18 2021-02-20 [facility] Sharita Suresh 1.2.840.1 [id number] Methodi 15:45:00 14:08:00 Encounter Jeremy Sandoval 08237.1.[address] 3.430.2.7 Hospit a .3.729908 l .8 2021-02-03 2021-02-04 Emergency [facility] [id number] Univers 21:10:00 03:21:[address] [facility] 2020-10-21 2020-10-27 Inpatient SYLVIA [facility] 064 [id number] 5174 [place] 00:00:00 00:00:[address] 2020-10-06 2020-10-06 Transition Jocelyne Tyalor 1.2.840.114 853 83131 Univers 00:00:00 00:00:00 of Care Madiha Sotelo 350.1.13.10 i ty of [place].2.[place] [id number] [facility] [address] 2020-09-28 2020-10-03 Hospital Rene Evans [facility] 1.2.840. 114 [id number] Univers 22:23:00 13:05:00 Encounter Shaina Pinto 350.1.13.10 ity of [place].7.2.686 [place] [phone] [facility] 081 [address] 2020-09-28 2020-09-28 Orders Doctor VERONIQUE 1.2.840.114 [id number] Univers 00:00:00 00:00:00 Only Unassigned, GONZALO 350.1.13.10 ity of [place] [facility] 4.2.7.2.686 Quang as [phone] [facility] [address] Branch 2020-09-09 2020-09-12 Inpatient NAKIA CRUZ [facility] [id number] 05876 [place] 00:00:00 00:00:00 462 Method i 2020-08-08 2020-08-08 [facility] 12009 [id number] Univers 15:40:00 15:40:00 TERRI [facility] 2020-07-11 2020-07-[address] [facility] [id number] Univers 15:40:00 15:40:00 [facility] 2020-06-09 2020-06-22 Inpatient NAKIA CRUZ [facility] 064 [id number] 84437 [place] 00:00:00 00:00:00 836 Method i 2020-03-19 2020-03-23 Inpatient DINAKAR, [facility] 837 [id number] 848 [place] 00:00:00 00:00:00 JEREMY 742 Method i 2020-03-14 2020-03-18 Inpatient DINAKAR, [facility] 478 [id number] 585 [place] 00:00:00 00:00:00 JEREMY 157 Method i 2020-02-13 2020-02-13 Laboratory Lab, Adc Fam Pob [facility] 1.2. 840.114 [id number] Univers 10:22:10 10:42:10 Only [facility]ce [facility] 350.1.13.10 ity of [place] 4.2.7.2.686 Quang as Professio [phone] [place] [address] [address] 2020-02-13 2020-02-13 Laboratory Lab, [facility] 1.2.840.114 [id number] 10:22:10 10:42:10 Only Fam Pob I Health 350.1.13.10 [place] 4.2.7.2.686 Professio [phone] nal 044 Office Building One 2019-09-28 2019-09-28 Outpatient [facility] [id number] Common 09:00:00 09:00:00 t [facility] 2019-09-18 2019-09-18 [facility] [id number] Common 09:30:00 09:30:00 t Bone Bone [facility] Spiri t and Joint [facility] 2019-08-14 2019-08-14 Transition Jocelyne Alexandra [id number] Univers 00:00:00 00:00:00 of Care Jovanny Coopery 350.1.13.10 ity [phone] [address] Branch 2019-08-14 2019-08-14 Transition Jocelyne Alexandra 1.2.840.114 [id number] 00:00:00 00:00:00 of Care Jovanny Coopery 350.1.13.10 [place] 4.2.7.2.686 [phone] [facility] 2019-08-10 2019-08-11 Inpatient U MILLIE RUST SHRUTI [id number] Univers 02:55:00 16:09:00 ADNAN ity of [facility] 2019-08-10 2019-08-11 [facility] Millie RUST [id number] Univers 02:55:00 16:09:00 Encounter Shaina Whitt 350.1.13.10 ity [facility] 4.2.7.2.686 [facility] [phone] [facility] 081 Branch 2019-08-10 2019-08-11 [facility] Millie RUST [id number] 02:55:00 16:09:00 Encounter Shaina Whitt 350.1.13.10 [place] 4.2.7.2.686 [place] [id number] [id number] Results Test Description Test Time Test Comments Results Result Comments Source POC glucose 2022-02-27 09:39:00 Test Item Value Reference Range Interpretation Comme nts POC glucose (test code = 107 mg/dL 65-99 H Ope rator Name: Aris Stevens ID: [id number]) [id number] able: [facility] Notified mortgage processing clerk Interpretation (test code = Abnormal 96892-5) [facility] [id number] 09:39:00 Test Item Value Reference Range Interpretation Comments POC glucose (test code = 107 mg/dL 65-99 H Ope rator Name: Aris [id number]) SaraDevice ID: [id number] able: TM Notified mortgage processing clerk Interpretation (test Abnormal code = 35962-4) [facility]2022-11-19 09:39:00 Test Item Value Reference Range Interpretation Comments POC glucose (test code = 107 mg/dL 65-99 H Ope rator Name: Aris 41684-3) SaraDevice ID: [id number] able: [facility] Notified mortgage processing clerk Interpretation (test Abnormal code = 18328-0) [facility] 12 [id number] 02:51:50 Test Item Value Reference Range Interpretation Comments Ventricular rate (test code = 253) Atrial rate (test code = 255) WI interval (test code = 266) QRSD interval (test code = 260) QT interval (test code = 264) QTC interval (test code = 265) P axis 1 (test code = 267) QRS axis 1 (test code = 268) T wave axis (test code = 270) EKG impression (test Normal sinus code = 273) rhythm-Right bundle branch block-Abnormal ECG-- [address]2022-11-18 02:51:50 Test Item Value Reference Range Interpretation Comments Ventricular rate (test code = 253) Atrial rate (test code = 255) WI interval (test code = 266) QRSD interval (test code = 260) QT interval (test code = 264) QTC interval (test code = 265) P axis 1 (test code = 267) QRS axis 1 (test code = 268) T wave axis (test code = 270) EKG impression (test Normal sinus code = 273) rhythm-Right bundle branch block-Abnormal ECG-- [address]2022-11-18 02:51:50 Test Item Value Reference Range Interpretation Comments Ventricular rate (test code = 253) Atrial rate (test code = 255) WI interval (test code = 266) QRSD interval (test code = 260) QT interval (test code = 264) QTC interval (test code = 265) P axis 1 (test code = 267) QRS axis 1 (test code = 268) T wave axis (test code = 270) EKG impression (test Normal sinus code = 273) rhythm-Right bundle branch block-Abnormal ECG-- [facility] ED Preliminary Interpretation - Not an [id number] 20:37:40 Test Item Value Reference Range Interpretation Comments SNOW (test code = SNOW) Stevo Hoskins DO 02/28/2022 12:23 [facility] ED Preliminary Interpretation - Not an OrderPerformed by: Stevo Hoskins DOAuthorized by: Stevo Hoskins DO ECG reviewed by ED Physician in the absence of a optical coating technician: yes Interpretation: Interpretation: abnormal Rate: ECG rate: 70 ECG rate assessment: normal Rhythm: Rhythm: sinus rhythm Ectopy: Ectopy: none QRS: QRS axis: Normal QRS intervals: WideConduction: Conduction: abnormal Abnormal conduction: complete RBBB ST segments: ST segments: NormalT waves: T waves: non-specific Lab Interpretation Abnormal (test code = 23153-0) [facility] ED Preliminary Interpretation - Not an [id number] 20:37:40 Test Item Value Reference Range Interpretation Comments SNOW (test code = SNOW) Stevo Hoskins DO 02/28/2022 12:23 [facility] ED Preliminary Interpretation - Not an OrderPerformed by: Stevo Hoskins, Authorized by: Stevo Hoskins DO ECG reviewed by ED Physician in the absence of a optical coating technician: yes Interpretation: Interpretation: abnormal Rate: ECG rate: 70 ECG rate assessment: normal Rhythm: Rhythm: sinus rhythm Ectopy: Ectopy: none QRS: QRS axis: Normal QRS intervals: WideConduction: Conduction: abnormal Abnormal conduction: complete RBBB ST segments: ST segments: NormalT waves: T waves: non-specific Lab Interpretation Abnormal (test code = 67668-9) [facility] Preliminary Interpretation - Not an [id number] 20:37:40 Test Item Value Reference Range Interpretation Comments SNOW (test code = SNOW) Stevo Hoskins DO 02/28/2022 12:23 [facility] ED Preliminary Interpretation - Not an OrderPerformed by: Stevo Hoskins, Authorized by: Stevo Hoskins DO ECG reviewed by ED Physician in the absence of a optical coating technician: yes Interpretation: Interpretation: abnormal Rate: ECG rate: 70 ECG rate assessment: normal Rhythm: Rhythm: sinus rhythm Ectopy: Ectopy: none QRS: QRS axis: Normal QRS intervals: WideConduction: Conduction: abnormal Abnormal conduction: complete RBBB ST segments: ST segments: NormalT waves: T waves: non-specific Lab Interpretation Abnormal (test code = 38241-0) [facility] [Presence] in Respiratory specimen by HELENA with probe [id number] 18:28:31 Test Item Value Reference Range Interpretation Comments SARS-CoV-2 (COVID-19) RNA Not detected [Presence] in Respiratory specimen by HELENA with probe detection (test code = 72511-8) 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 employed in a Unknown healthcare setting (test code = 92922-4) Whether the patient has symptoms Unknown related to condition of interest (test code = 58585-4) Whether the patient was Unknown hospitalized for condition of interest (test code = 61348-1) Whether the patient was admitted Unknown to intensive care unit (ICU) for condition of interest (test code = 07662-6) Whether patient resides in a Unknown congregate care setting (test code = 28490-8) status (test code = Unknown 43204-1) Date and time of symptom onset Unknown (test code = 11763-4) [facility] WITH [id number] 21:35:39 Test Item Value Reference Range Interpretation [...] (test code = 53.7 fL 39.0-49.9 H 02653-6) RDW-CV (test code = 17.0 % 12.0-15.5 H 788-0) PLT (test code = See_Comment L [Automated 777-3) message] The sy stem which generated this result transmitted reference range : 166 - 358 10*3/ ?L. The reference r davi was not used to interpret this result as normal/abnormal . MPV (test code = 9.8 fL 9.5-12.9 95718-6) IPF % (test code = 2.2 % 1.3-7.7 Platelet count 3221542402) measured by fluorescence method. NRBC/100 WBC (test See_Comment [Automat ed code = 7755455216) message] The system which generated this result transmitted reference range : 0.0 - 10.0 /100 WBCs. The refer ence range was not u sed to interpret th is result as normal/abnormal . NRBC x10^3 (test code See_Comment [Auto mated = 0221578193) message] The s ystem which generated this result transmitted reference range : 10*3/?L. The reference range was not used to interpret this result as normal/abnormal . SEG % (test code = 60 % 33-76 72358-4) BAND % (test code = 3 % 0-1 H 99919-7) LYMPH % (test code = 23 % 14-54 69856-5) MONO % (test code = 12 % 0-4 H 19671-2) EOS % (test code = 2 % 0-3 91219-9) ANC (test code = 1.38 10*3/uL 1.88-7.09 L 753-4) PLT ESTIMATE (test Decreased Normal A code = 9317-9) Lab Interpretation Abnormal (test code = 97377-1) [facility]. METABOLIC PANEL (48872)2022-02-15 20:44:39 Test Item Value Reference Range Interpretation Comments NA (test code = 137 mmol/L 135-145 3376538160) K (test code = 3.8 mmol/L 3.5-5.0 9255432676) CL (test code = 107 mmol/L 98-108 4108499912) CO2 TOTAL (test code = 25 mmol/L 23-31 9490161832) AGAP (test code = 2-16 5767674779) BUN (test code = 11 mg/dL 7-23 5869285995) GLUCOSE (test code = 103 mg/dL 70-110 9246977424) CREATININE (test code = 0.53 mg/dL 0.50-1.04 8275879064) TOTAL BILI (test code = 1.9 mg/dL 0.1-1.1 H 6013631731) CALCIUM (test code = 8.2 mg/dL 8.6-10.6 L 5509904600) T PROTEIN (test code = 6.4 g/dL 6.3-8.2 9621030166) ALBUMIN (test code = 3.4 g/dL 3.5-5.0 L 9524014592) ALK PHOS (test code = 146 U/L 34-122 H 2236544333) ALTv (test code = 40 U/L 5-35 H 1742-6) AST(SGOT) (test code = 52 U/L 13-40 H 2968800778) eGFR (test code = mL/min/1.73m2 0521258218) SNOW (test code = SNOW) Association of [...] tests). Lab Interpretation Abnormal (test code = 79018-5) [facility] Test Item Value Reference Range Interpretation Comments LIPASE (test code = 1042658400) 298 U/L 0-220 H Lab Interpretation (test code = Abnormal 44831-0) [facility] [id number] 03:08:00 Test Item Value Reference Range Interpretation Comments Urine culture (test SEE COMMENT Bacteriu bartolo screen code = 0618224) negative. [facility] spkzlya1469-88-85 03:08:00 Test Item Value Reference Range Interpretation Comments Urine culture (test SEE COMMENT Bacteriu bartolo screen code = 9602032) negative. [facility] [id number] 03:08:00 Test Item Value Reference Range Interpretation Comments Urine culture (test SEE COMMENT Bacteriu bartolo screen code = 6654267) negative. [facility] RNA [Presence] in Respiratory specimen by HELENA with probe [id number] 02:16:27 Test Item Value Reference Range Interpretation Comments SARS-CoV-2 (COVID-19) RNA Not detected [Presence] in Respiratory specimen by HELENA with probe detection (test code = 41273-8) 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 employed in a Unknown healthcare setting (test code = 18565-7) Whether the patient has symptoms Unknown related to condition of interest (test code = 35224-1) Whether the patient was Unknown hospitalized for condition of interest (test code = 56992-4) Whether the patient was admitted Unknown to intensive care unit (ICU) for condition of interest (test code = 83231-9) Whether patient resides in a Unknown congregate care setting (test code = 68379-5) status (test code = Unknown 56380-4) Date and time of symptom onset Unknown (test code = 83685-1) [facility] WESTS[facility] pathology [id number] 22:22:49 Test Item Value Reference Range Interpretation Comments Case number (test code = [id number]) Surgical pathology See link below for report (test code = PDF Lab Report 2255) Result status (test code This is Final Report = 5906025) [facility] [id number] [facility] [id number] 22:22:49 Test Item Value Reference Range Interpretation Comments Case number (test code = [id number]) Surgical pathology See link below for report (test code = PDF Lab Report 2255) Result status (test code This is Final Report = 2021402) for [id number] [facility] pathology [id number] 22:22:49 Test Item Value Reference Range Interpretation Comments Case number (test code = [id number]) Surgical pathology See link below for report (test code = PDF Lab Report 2255) Result status (test code This is Final Report = 3936406) for [id number] [facility] pathology [id number] 22:22:49 Test Item Value Reference Range Interpretation Comments Case number (test code = [id number]) Surgical pathology See link below for report (test code = PDF Lab Report 2255) Result status (test code This is Final Report = 4840352) for [id number] [facility] pathology [id number] 22:22:49 Test Item Value Reference Range Interpretation Comments Case number (test code = [id number]) Surgical pathology See link below for report (test code = PDF Lab Report 2255) Result status (test code This is Final Report = 0905410) for [id number] [place] [address] [id number] 17:57:00 Test Item Value Reference Range Interpretation Comments POC glucose (test code = 121 mg/dL 65-99 H Ope rator Name: [id number]) Rustam Elaine vice ID: [id number] able: [facility] Notified mortgage processing clerk Interpretation (test Abnormal code = 03667-2) [facility] [id number] 17:57:00 Test Item Value Reference Range Interpretation Comments POC glucose (test code = 121 mg/dL 65-99 H Ope rator Name: [id number]) Rustam Elaine vice ID: [id number] able: [facility] Notified mortgage processing clerk Interpretation (test Abnormal code = 65694-5) [facility] [id number] 11:53:00 Test Item Value Reference Range Interpretation Comments Urine culture (test SEE COMMENT Bacteriu bartolo screen code = 5503950) negative. [facility] [id number] 11:53:00 Test Item Value Reference Range Interpretation Comments Urine culture (test SEE COMMENT Bacteriu bartolo screen code = 0126059) negative. [facility] RNA [Presence] in Respiratory specimen by HELENA with probe [id number] 08:30:51 Test Item Value Reference Range Interpretation Comments SARS-CoV-2 (COVID-19) RNA Not detected [Presence] in Respiratory specimen by HELENA with probe detection (test code = 80053-6) 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 employed in a Unknown healthcare setting (test code = 79008-1) Whether the patient has symptoms Unknown related to condition of interest (test code = 41375-7) Whether the patient was Unknown hospitalized for condition of interest (test code = 01427-4) Whether the patient was admitted Unknown to intensive care unit (ICU) for condition of interest (test code = 48054-2) Whether patient resides in a Unknown congregate care setting (test code = 55937-5) status (test code = Unknown 93295-0) Date and time of symptom onset Unknown (test code = 74444-8) [address]2022-09-03 12:19:45 Test Item Value Reference Range Interpretation Comments Ventricular rate (test code = 253) Atrial rate (test code = 255) WI interval (test code = 266) QRSD interval [...] of 26-NOV-2021 19:29,-No significant change was found- [address]2022-09-03 12:19:45 Test Item Value Reference Range Interpretation Comments Ventricular rate (test code = 253) Atrial rate (test code = 255) WI interval (test code = 266) QRSD interval [...] of 26-NOV-2021 19:29,-No significant change was found- [facility] 12 [id number] 12:19:45 Test Item Value Reference Range Interpretation Comments Ventricular rate (test code = 253) Atrial rate (test code = 255) WI interval (test code = 266) QRSD interval [...] of 26-NOV-2021 19:29,-No significant change was found- [facility] ED Preliminary Interpretation - Not an [id number] 05:33:45 Test Item Value Reference Range Interpretation Comments SNOW (test code = SNOW) Stevo Hoskins DO 12/13/2021 12:08 [facility] ED Preliminary Interpretation - Not an OrderPerformed by: Stevo Hoskins DOAuthorized by: Stevo Hoskins DO ECG reviewed by ED Physician in the absence of a optical coating technician: yes Previous ECG: Previous ECG: UnavailableInterpretat ion: Interpretation: abnormal Rate: ECG rate: 63 ECG rate assessment: normal Rhythm: Rhythm: sinus rhythm Ectopy: Ectopy: none QRS: QRS axis: Normal QRS intervals: NormalConduction: Conduction: abnormal Abnormal conduction: complete RBBB ST segments: ST segments: NormalT waves: T waves: non-specific Lab Interpretation Abnormal (test code = 78890-1) [facility] ED Preliminary Interpretation - Not an [id number] 05:33:45 Test Item Value Reference Range Interpretation Comments SNOW (test code = SNOW) Stevo Hoskins DO 12/13/2021 12:08 [facility] ED Preliminary Interpretation - Not an OrderPerformed by: Stevo Hoskins DOAuthorized by: Stevo Hoskins DO ECG reviewed by ED Physician in the absence of a optical coating technician: yes Previous ECG: Previous ECG: UnavailableInterpretat ion: Interpretation: abnormal Rate: ECG rate: 63 ECG rate assessment: normal Rhythm: Rhythm: sinus rhythm Ectopy: Ectopy: none QRS: QRS axis: Normal QRS intervals: NormalConduction: Conduction: abnormal Abnormal conduction: complete RBBB ST segments: ST segments: NormalT waves: T waves: non-specific Lab Interpretation Abnormal (test code = 45479-8) [facility] ED Preliminary Interpretation - Not an [id number] 05:33:45 Test Item Value Reference Range Interpretation Comments SNOW (test code = SNOW) Stevo Hoskins DO 12/13/2021 12:08 [facility] ED Preliminary Interpretation - Not an OrderPerformed by: Stevo Hoskins DOAuthorized by: Stevo Hoskins DO ECG reviewed by ED Physician in the absence of a optical coating technician: yes Previous ECG: Previous ECG: UnavailableInterpretat ion: Interpretation: abnormal Rate: ECG rate: 63 ECG rate assessment: normal Rhythm: Rhythm: sinus rhythm Ectopy: Ectopy: none QRS: QRS axis: Normal QRS intervals: NormalConduction: Conduction: abnormal Abnormal conduction: complete RBBB ST segments: ST segments: NormalT waves: T waves: non-specific Lab Interpretation Abnormal (test code = 32846-4) [facility] 05:22:00 Test Item Value Reference Range Interpretation Comments Urine culture (test SEE COMMENT Bacteriu bartolo screen code = 6397720) negative. [facility] RNA [Presence] in Respiratory specimen by HELENA with probe [id number] 02:31:14 Test Item Value Reference Range Interpretation Comments SARS-CoV-2 (COVID-19) RNA Not detected [Presence] in Respiratory specimen by HELENA with probe detection (test code = 63028-5) 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 employed in a Unknown healthcare setting (test code = 07111-4) Whether the patient has symptoms Unknown related to condition of interest (test code = 70727-9) Whether the patient was Unknown hospitalized for condition of interest (test code = 63145-9) Whether the patient was admitted Unknown to intensive care unit (ICU) for condition of interest (test code = 19883-5) Whether patient resides in a Unknown congregate care setting (test code = 21436-0) status (test code = Unknown 84678-6) Date and time of symptom onset Unknown (test code = 82947-2) [facility] 12 [id number] 13:24:41 Test Item Value Reference Range Interpretation Comments Ventricular rate (test code = 253) Atrial rate (test code = 255) WI interval (test code = 266) QRSD interval (test code = 260) QT interval (test code = 264) QTC interval (test code = 265) P axis 1 (test code = 267) QRS axis 1 (test code = 268) T wave axis (test code = 270) EKG impression (test code Normal sinus = 273) rhythm-Right bundle branch block- [facility] ED Preliminary Interpretation - Not an [id number] 00:04:12 Test Item Value Reference Range Interpretation Comments SNOW (test code = SNOW) Jefferson Skelton MD 12/04/2021 11:12 [facility] ED Preliminary Interpretation - Not an OrderPerformed by: Jefferson Skelton MDAuthorized by: Jefferson Skelton MD ECG reviewed by ED Physician in the absence of a optical coating technician: yes Interpretation: Interpretation: abnormal Rate: ECG rate: 70 ECG rate assessment: normal Rhythm: Rhythm: sinus rhythm QRS: QRS axis: Normal QRS intervals: WideConduction: Conduction: abnormal Abnormal conduction: complete RBBB ST segments: ST segments: NormalOther findings: Other findings: prolonged qTc interval Lab Interpretation Abnormal (test code = 97347-9) [facility] [id number] 02:26:00 Test Item Value Reference Range Interpretation Comments Urine culture (test SEE COMMENT Bacteriu bartolo screen code = 0894942) negative. [facility] RNA [Presence] in Respiratory specimen by HELENA with probe bpejzvdsy3683-23-57 00:33:54 Test Item Value Reference Range Interpretation Comments SARS-CoV-2 (COVID-19) RNA Not detected [Presence] in Respiratory specimen by HELENA with probe detection (test code = 18092-4) 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 employed in a Unknown healthcare setting (test code = 38547-7) Whether the patient has symptoms Unknown related to condition of interest (test code = 62071-0) Whether the patient was Unknown hospitalized for condition of interest (test code = 43141-5) Whether the patient was admitted Unknown to intensive care unit (ICU) for condition of interest (test code = 44178-8) Whether patient resides in a Unknown congregate care setting (test code = 17117-3) status (test code = Unknown 86959-0) Date and time of symptom onset Unknown (test code = 23875-0) [facility] CHOUPQYGSJFLLRIWD6184-58-44 09:34:08 Test Item Value Reference Range Interpretation Comments MAGNESIUM (test code = 7973370337) 1.4 mg/dL 1.7-2.4 L Lab Interpretation (test code = Abnormal 14503-6) [facility]. METABOLIC PANEL (29621)2020-10-03 09:33:48 Test Item Value Reference Range Interpretation Comments NA (test code = 136 mmol/L 135-145 1852548311) K (test code = 3.3 mmol/L 3.5-5.0 L 8135665059) CL (test code = 100 mmol/L 98-108 0018223762) CO2 TOTAL (test code = 33 mmol/L 23-31 H 6157692128) AGAP (test code = 2-16 1165755646) BUN (test code = 3 mg/dL 7-23 L 2272461296) GLUCOSE (test code = 95 mg/dL 70-110 5258698812) CREATININE (test code = 0.47 mg/dL 0.50-1.04 L 1471861301) TOTAL BILI (test code = 1.5 mg/dL 0.1-1.1 H 2567107958) CALCIUM (test code = 8.1 mg/dL 8.6-10.6 L 2627103320) T PROTEIN (test code = 5.9 g/dL 6.3-8.2 L 4154959238) ALBUMIN (test code = 2.9 g/dL 3.5-5.0 L 6426399358) ALK PHOS (test code = 115 U/L 34-122 2101525231) ALTv (test code = 24 U/L 5-35 1742-6) AST(SGOT) (test code = 35 U/L 13-40 9388865489) eGFR (test code = mL/min/1.73m2 9851275555) SNOW (test code = SNOW) Association of [...] tests). Lab Interpretation Abnormal (test code = 61886-4) [facility]28 Test Item Value Reference Range Interpretation Comments PHOSPHORUS (test code = 2797403848) 2.8 mg/dL 2.5-5.0 Lab Interpretation (test code = Normal 32162-2) [facility] WITH [id number] 09:31:46 Test Item Value Reference Range Interpretation [...] (test code = 53.8 fL 39.0-49.9 H 51960-6) RDW-CV (test code = 19.9 % 12.0-15.5 H 788-0) PLT (test code = See_Comment L [Automated 777-3) message] The sy stem which generated this result transmitted reference range : 166 - 358 10*3/ ?L. The reference r davi was not used to interpret this result as normal/abnormal . MPV (test code = 10.9 fL 9.5-12.9 08286-6) IPF % (test code = 3.6 % 1.3-7.7 Platelet count 3359974992) measured by fluorescence method. NRBC/100 WBC (test See_Comment [Automat ed code = 1146240725) message] The system which generated this result transmitted reference range : 0.0 - 10.0 /100 WBCs. The refer ence range was not u sed to interpret th is result as normal/abnormal . NRBC x10^3 (test code See_Comment [Auto mated = 8937542112) message] The s ystem which generated this result transmitted reference range : 10*3/?L. The reference range was not used to interpret this result as normal/abnormal . GRAN MAT (NEUT) % 68.1 % (test code = 770-8) IMM GRAN % (test code 1.10 % = 1985078698) LYMPH % (test code = 15.5 % 736-9) MONO % (test code = 11.3 % 5905-5) EOS % (test code = 3.4 % 713-8) BASO % (test code = 0.6 % 706-2) GRAN MAT x10^3(ANC) 2.42 10*3/uL 1.88-7.09 (test code = 6250833477) IMM GRAN x10^3 (test 0.04 10*3/uL 0.00-0.06 code = 8718254160) LYMPH x10^3 (test code 0.55 10*3/uL 1.32-3.29 L = 731-0) MONO x10^3 (test code 0.40 10*3/uL 0.33-0.92 = 742-7) EOS x10^3 (test code = 0.12 10*3/uL 0.03-0.39 711-2) BASO x10^3 (test code <0.03 0.01-0.07 = 704-7) Lab Interpretation Abnormal (test code = 60957-7) [facility] WITH [id number] 10:47:09 Test Item Value Reference Range Interpretation [...] (test code = 52.2 fL 39.0-49.9 H 58280-0) RDW-CV (test code = 18.6 % 12.0-15.5 H 788-0) PLT (test code = See_Comment L [Automated 777-3) message] The sy stem which generated this result transmitted reference range : 166 - 358 10*3/ ?L. The reference r davi was not used to interpret this result as normal/abnormal . MPV (test code = 10.1 fL 9.5-12.9 91231-8) IPF % (test code = 3.2 % 1.3-7.7 Platelet count 9606927670) measured by fluorescence method. NRBC/100 WBC (test See_Comment [Automat ed code = 2388205407) message] The system which generated this result transmitted reference range : 0.0 - 10.0 /100 WBCs. The refer ence range was not u sed to interpret th is result as normal/abnormal . NRBC x10^3 (test code See_Comment [Auto mated = 6030509666) message] The s ystem which generated this result transmitted reference range : 10*3/?L. The reference range was not used to interpret this result as normal/abnormal . GRAN MAT (NEUT) % 65.1 % (test code = 770-8) IMM GRAN % (test code 1.20 % = 3161456204) LYMPH % (test code = 16.9 % 736-9) MONO % (test code = 11.5 % 5905-5) EOS % (test code = 4.5 % 713-8) BASO % (test code = 0.8 % 706-2) GRAN MAT x10^3(ANC) 1.58 10*3/uL 1.88-7.09 L (test code = 4762801655) IMM GRAN x10^3 (test 0.03 10*3/uL 0.00-0.06 code = 3055396812) LYMPH x10^3 (test code 0.41 10*3/uL 1.32-3.29 L = 731-0) MONO x10^3 (test code 0.28 10*3/uL 0.33-0.92 L = 742-7) EOS x10^3 (test code = 0.11 10*3/uL 0.03-0.39 711-2) BASO x10^3 (test code <0.03 0.01-0.07 = 704-7) POLYCHROMASIA (test 2+ See_Comment [Automa josemanuel code = 21316-2) message] The system which generated this result transmitted reference range : 2+. The referen ce range was not u sed to interpret th is result as normal/abnormal . LG GRAN LYMPHS (test Rare Rare code = 2312607067) Lab Interpretation Abnormal (test code = 42055-3) [facility]. METABOLIC PANEL ([id number])2020-10-02 10:19:28 Test Item Value Reference Range Interpretation Comments NA (test code = 135 mmol/L 135-145 8909294063) K (test code = 3.4 mmol/L 3.5-5.0 L 3168071417) CL (test code = 104 mmol/L 98-108 2409792718) CO2 TOTAL (test code = 27 mmol/L 23-31 6623531020) AGAP (test code = 2-16 8031093897) BUN (test code = 4 mg/dL 7-23 L 6111928720) GLUCOSE (test code = 97 mg/dL 70-110 3451015948) CREATININE (test code = 0.45 mg/dL 0.50-1.04 L 1016694153) TOTAL BILI (test code = 1.7 mg/dL 0.1-1.1 H 1694950019) CALCIUM (test code = 8.2 mg/dL 8.6-10.6 L 2116554957) T PROTEIN (test code = 6.0 g/dL 6.3-8.2 L 6834122062) ALBUMIN (test code = 3.1 g/dL 3.5-5.0 L 4254691434) ALK PHOS (test code = 120 U/L 34-122 2370137507) ALTv (test code = 26 U/L 5-35 1742-6) AST(SGOT) (test code = 39 U/L 13-40 4562263375) eGFR (test code = mL/min/1.73m2 8103133091) SNOW (test code = SNOW) Association of [...] tests). Lab Interpretation Abnormal (test code = 43899-9) [facility] [id number] 02:50:27COVID DMT InterpretationInterpretation/Recommendations: Molecular NAAT Tests for [...] the [facility] medical record. [facility] SERVICES[facility] IdgdudoEIBM-VnX-3 NAAT (no units) ? ? Date ? Value ? 02/13/2020 ? Not Detected ? SARS-CoV-2 Rapid ID NOW (no units) ? ? Date ? Value ? 09/29/2020 ? Not Detected ? ? ? 08/10/2019 ? Not Detected ? [facility] WITH [id number] 10:31:29 Test Item Value Reference Range Interpretation [...] (test code = 52.3 fL 39.0-49.9 H 67436-0) RDW-CV (test code = 18.4 % 12.0-15.5 H 788-0) PLT (test code = See_Comment LL [Automated 777-3) message] The sy stem which generated this result transmitted reference range : 166 - 358 10*3/ ?L. The reference r davi was not used to interpret this result as normal/abnormal . MPV (test code = 11.2 fL 9.5-12.9 06196-2) IPF % (test code = 3.9 % 1.3-7.7 Platelet count 0423486067) measured by fluorescence method. NRBC/100 WBC (test See_Comment [Automat ed code = 2224495352) message] The system which generated this result transmitted reference range : 0.0 - 10.0 /100 WBCs. The refer ence range was not u sed to interpret th is result as normal/abnormal . NRBC x10^3 (test code <0.01 See_Comment [Auto mated = 4593847224) message] The s ystem which generated this result transmitted reference range : 10*3/?L. The reference range was not used to interpret this result as normal/abnormal . GRAN MAT (NEUT) % 57.5 % (test code = 770-8) IMM GRAN % (test code 0.50 % = 5156385387) LYMPH % (test code = 20.7 % 736-9) MONO % (test code = 13.3 % 5905-5) EOS % (test code = 6.9 % 713-8) BASO % (test code = 1.1 % 706-2) GRAN MAT x10^3(ANC) 1.08 10*3/uL 1.88-7.09 L (test code = 9567889751) IMM GRAN x10^3 (test <0.03 0.00-0.06 code = 3432312614) LYMPH x10^3 (test code 0.39 10*3/uL 1.32-3.29 L = 731-0) MONO x10^3 (test code 0.25 10*3/uL 0.33-0.92 L = 742-7) EOS x10^3 (test code = 0.13 10*3/uL 0.03-0.39 711-2) BASO x10^3 (test code <0.03 0.01-0.07 = 704-7) BASO STIPPLING (test Present A code = 703-9) ELLIPTO/OVAL (test 2+ See_Comment A [Automat ed code = 58204-9) message] The system which generated this result transmitted reference range : (none). The reference range was not used to interpret this result as normal/abnormal . POLYCHROMASIA (test 2+ See_Comment [Automa josemanuel code = 19846-5) message] The system which generated this result transmitted reference range : 2+. The referen ce range was not u sed to interpret th is result as normal/abnormal . Lab Interpretation Abnormal (test code = 18792-2) [facility]OL[facility] (88329)2020-10-01 09:19:22 Test Item Value Reference Range Interpretation Comments NA (test code = 135 mmol/L 135-145 6000840458) K (test code = 4.0 mmol/L 3.5-5.0 4542060906) CL (test code = 107 mmol/L 98-108 9105586689) CO2 TOTAL (test code = 24 mmol/L 23-31 0405712945) AGAP (test code = 2-16 7828019380) BUN (test code = 7 mg/dL 7-23 0573859680) GLUCOSE (test code = 93 mg/dL 70-110 5025359361) CREATININE (test code = 0.47 mg/dL 0.50-1.04 L 2125848906) TOTAL BILI (test code = 1.6 mg/dL 0.1-1.1 H 9879205407) CALCIUM (test code = 8.1 mg/dL 8.6-10.6 L 5895826921) T PROTEIN (test code = 5.8 g/dL 6.3-8.2 L 8512824067) ALBUMIN (test code = 2.8 g/dL 3.5-5.0 L 9823811191) ALK PHOS (test code = 106 U/L 34-122 2653807414) ALTv (test code = 23 U/L 5-35 1742-6) AST(SGOT) (test code = 39 U/L 13-40 7261082731) eGFR (test code = mL/min/1.73m2 7859987785) SNOW (test code = SNOW) Association of [...] tests). Lab Interpretation Abnormal (test code = 78701-4) [facility] CenterTROPONIN [id number] 20:47:45 Test Item Value Reference Range Interpretation Comments TROPONIN I (test 0.002 ng/mL See_Comment [Automated code = 4121432215) message] The system which generated this result [...] ? Lab Interpretation Normal (test code = 60087-8) [facility] CenterUR[facility] [id number] 19:11:57 Test Item Value Reference Range Interpretation Comments URINE CULTURE (test code <10,000 CFU/mL = 630-4) Gram-Positive Cocci [facility] CenterFECAL PATHOGENS BY [id number] 18:17:03 Test Item Value Reference Range Interpretation Comments Campylobacter (jejuni, Negative Negative, coli and upsaliensis) Indeterminate, (test code = 86029-7) See comment Plesiomonas shigelloides Negative Negative, (test code = 88561-0) Indeterminate, See comment Salmonella (test code = Negative Negative, 44803-6) Indeterminate, See comment Yersinia enterocolitica Negative Negative, (test code = 33627-3) Indeterminate, See comment Vibrio (test code = Negative Negative, 25997-9) Indeterminate, See comment Vibrio cholerae (test Negative Negative, code = 63782-3) Indeterminate, See comment Enteroaggregative E. Negative Negative, coli (EAEC) (test code = Indeterminate, 97164-7) See comment Enteropathogenic E. coli Negative Negative, N/A, (EPEC) (test code = Indeterminate, 33715-6) See comment Enterotoxigenic E. coli Negative Negative, (ETEC) (test code = Indeterminate, 54089-4) See comment Shiga toxin-Producing E. Negative Negative, coli (STEC) (test code = Indeterminate, 98839-8) See comment Shigella/Enteroinvasive Negative Negative, E. coli (EIEC) (test Indeterminate, code = 33369-7) See comment Cryptosporidium (test Negative Negative, code = 91437-0) Indeterminate, See comment Cyclospora cayetanensis Negative Negative, (test code = 35480-0) Indeterminate, See comment Entamoeba histolytica Negative Negative, (test code = 25507-8) Indeterminate, See comment Giardia lamblia (test Negative Negative, code = 68315-1) Indeterminate, See comment Adenovirus F 40/41 (test Negative Negative, code = 38562-4) Indeterminate, See comment Astrovirus (test code = Negative Negative, 64734-8) Indeterminate, See comment Norovirus GI/GII (test Negative Negative, code = 46897-9) Indeterminate, See comment Rotavirus A (test code = Negative Negative, 45556-6) Indeterminate, See comment Sapovirus (test code = Negative Negative, 26133-6) Indeterminate, See comment Clostridioides Positive Negative, A (Clostridium) difficile Indeterminate, Toxin A/B (test code = See comment 72247-7) SNOW (test code = SNOW) Based on Saberr GI Panel package insert, the Saberr GI Panel contains a single multiplexed assay [...] Clostridium difficile toxin A/B Detected. Based the CepDiBcomid Xpert C. difficile/Epi assay package insert, Xpert C. difficile/Epi assay detects the toxin B gene (tcdB), the binary toxin gene (CDT), and the jmioxy-drfn-fale deletion at nucleotide 117 within the gene [...] organism. Lab Interpretation (test Abnormal code = 13791-2) [facility] ([facility] [id number] 14:26:32 Test Item Value Reference Range Interpretation Comments Occult (guaiac) Blood (test code = Negative Negative 2335-8) Lab Interpretation (test code = Normal 37234-2) [facility] WITH [id number] 13:54:12 Test Item Value Reference Range Interpretation [...] (test code = 52.9 fL 39.0-49.9 H 99966-6) RDW-CV (test code = 18.3 % 12.0-15.5 H 788-0) PLT (test code = See_Comment LL [Automated 777-3) message] The sy stem which generated this result transmitted reference range : 166 - 358 10*3/ ?L. The reference r davi was not used to interpret this result as normal/abnormal . MPV (test code = 10.8 fL 9.5-12.9 76251-3) IPF % (test code = 4.2 % 1.3-7.7 Platelet count 6736156100) measured by fluorescence method. NRBC/100 WBC (test See_Comment [Automat ed code = 5171995925) message] The system which generated this result transmitted reference range : 0.0 - 10.0 /100 WBCs. The refer ence range was not u sed to interpret th is result as normal/abnormal . NRBC x10^3 (test code <0.01 See_Comment [Auto mated = 3173924836) message] The s ystem which generated this result transmitted reference range : 10*3/?L. The reference range was not used to interpret this result as normal/abnormal . GRAN MAT (NEUT) % 60.0 % (test code = 770-8) IMM GRAN % (test code 0.40 % = 0210663800) LYMPH % (test code = 20.6 % 736-9) MONO % (test code = 11.3 % 5905-5) EOS % (test code = 6.9 % 713-8) BASO % (test code = 0.8 % 706-2) GRAN MAT x10^3(ANC) 1.49 10*3/uL 1.88-7.09 L (test code = 8892023190) IMM GRAN x10^3 (test <0.03 0.00-0.06 code = 1038632367) LYMPH x10^3 (test code 0.51 10*3/uL 1.32-3.29 L = 731-0) MONO x10^3 (test code 0.28 10*3/uL 0.33-0.92 L = 742-7) EOS x10^3 (test code = 0.17 10*3/uL 0.03-0.39 711-2) BASO x10^3 (test code <0.03 0.01-0.07 = 704-7) Lab Interpretation Abnormal (test code = 21314-7) [facility]COMP[facility]OLIC PANEL (05381)2020-09-30 12:47:49 Test Item Value Reference Range Interpretation Comments NA (test code = 135 mmol/L 135-145 2214682799) K (test code = 4.0 mmol/L 3.5-5.0 2433522868) CL (test code = 108 mmol/L 98-108 9173666208) CO2 TOTAL (test code = 23 mmol/L 23-31 7046000160) AGAP (test code = 2-16 4517604128) BUN (test code = 8 mg/dL 7-23 5417541005) GLUCOSE (test code = 109 mg/dL 70-110 3336164348) CREATININE (test code = 0.52 mg/dL 0.50-1.04 4615055726) TOTAL BILI (test code = 1.7 mg/dL 0.1-1.1 H 5432467991) CALCIUM (test code = 8.0 mg/dL 8.6-10.6 L 3542737993) T PROTEIN (test code = 5.7 g/dL 6.3-8.2 L 8974957694) ALBUMIN (test code = 2.7 g/dL 3.5-5.0 L 1805699135) ALK PHOS (test code = 106 U/L 34-122 0068884271) ALTv (test code = 22 U/L 5-35 1742-6) AST(SGOT) (test code = 34 U/L 13-40 3007247946) eGFR (test code = mL/min/1.73m2 1188148528) SNOW (test code = SNOW) Association of [...] tests). Lab Interpretation Abnormal (test code = 91693-6) [facility] CenterFECAL [id number] 11:49:39 Test Item Value Reference Range Interpretation Comments Fecal Leukocytes (test code = Positive Negative A 2268182175) Lab Interpretation (test code = Abnormal 59855-0) [facility] CenterN-TERMINAL [id number] 10:20:53 Test Item Value Reference Range Interpretation Comments NT-proBNP (test code 68 pg/mL See_Comment [Autom ated = 9473434469) message] The system which generated this result transmitted reference range : <=125. The reference range was not used to interpret this result as normal/abnormal . SNOW (test code = SNOW) Biotin has been reported to cause a negative bias, interpret results relative to patient's use of biotin. Lab Interpretation Normal (test code = 83004-7) [facility] CenterCLOSTRIDIUM DIFFICILE [id number] 05:18:16 Test Item Value Reference Range Interpretation Comments Clostridioides (Clostridium) Negative Negative difficile (test code = 48475-1) Lab Interpretation (test code = Normal 59296-5) [facility] CenterPOLA GLUCOSE (AUTOMATED)2020-09-30 00:54:42 Test Item Value Reference Range Interpretation Comments POCT GLU (test code = 1786043617) 111 mg/dL 70-110 H Lab Interpretation (test code = Abnormal 40161-7) [facility] METABOLIC PANEL (NA, K, CL, CO2, GLUCOSE, BUN, CREATININE, CA)2020-09-29 22:08:22 Test Item Value Reference Range Interpretation Comments NA (test code = 135 mmol/L 135-145 4205676815) K (test code = 3.7 mmol/L 3.5-5.0 9275258437) CL (test code = 108 mmol/L 98-108 3093563739) CO2 TOTAL (test code = 22 mmol/L 23-31 L 0535565981) AGAP (test code = 2-16 1068951968) BUN (test code = 9 mg/dL 7-23 0225666110) GLUCOSE (test code = 104 mg/dL 70-110 7941477722) CREATININE (test code = 0.51 mg/dL 0.50-1.04 6522847788) CALCIUM (test code = 7.9 mg/dL 8.6-10.6 L 8516074028) eGFR (test code = mL/min/1.73m2 5020338556) SNOW (test code = SNOW) Association of [...] tests). Lab Interpretation Abnormal (test code = 45625-9) [facility] CenterHEMOGLOBIN2021-06-21 21:41:20 Test Item Value Reference Range Interpretation Comments HGB (test code = 718-7) 7.4 g/dL 11.6-15.0 L Lab Interpretation (test code = Abnormal 53853-1) [facility] CenterVITAMIN B12, [id number] 20:39:52 Test Item Value Reference Range Interpretation Comments VIT B12 (test code = 212 pg/mL 240-930 L 6976917318) SNOW (test code = SNOW) Biotin has been reported to cause a positive bias, interpret results relative to patient's use of biotin. 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.[facility] CenterC-REACTIVE [id number] 17:01:56 Test Item Value Reference Range Interpretation Comments CRP (test code = 3213918831) 4.7 mg/dL <0.8 H Lab Interpretation (test code = Abnormal 40800-1) [facility] CenterVITAMIN D, [id number] 16:43:29 Test Item Value Reference Range Interpretation Comments VIT D 25OH (test code = <13 25-80 L 13895-0) SNOW (test code = SNOW) Deficiency: <20 ng/mLInsufficiency: 20-24 ng/mLOptimal: 25-80 ng/mL Lab Interpretation (test Abnormal code = 18473-2) [facility] CenterPROCALCITONIN2021-06-21 16:15:30 Test Item Value Reference Range Interpretation Comments Procalcitonin (test 0.08 ng/mL <0.07 H code = 3820390416) SNOW (test code = SNOW) INTERPRETATION OF [...] lung abscess/empyema. For further information please refer to:[email or web address] Lab Interpretation Abnormal (test code = 25479-3) [facility] CenterOSMOLALITY [id number] 15:35:14 Test Item Value Reference Range Interpretation Comments OSMO U (test code = See_Comment [Automa josemanuel message] 3301489919) The system 2d2c generated this result transmitted ref erence range: 50-1,100 mOsm/kg. The re ference range was not u sed to interpret this result as normal/abnor mal. Lab Interpretation (test Normal code = 12680-1) [facility] CenterTROPONIN [id number] 14:04:56 Test Item Value Reference Range Interpretation Comments TROPONIN I (test 0.002 ng/mL See_Comment [Automated code = 2012271427) message] The system which generated this result [...] ? Lab Interpretation Normal (test code = 66243-3) [facility] CenterCT ABDOMEN PELVIS W [id number] 13:37:17 1. ?Findings concerning for infectious or [...] this study and agree with theabove report.[facility] WITH [id number] 11:41:25 Test Item Value Reference Range Interpretation [...] (test code = 52.4 fL 39.0-49.9 H 18686-8) RDW-CV (test code = 18.2 % 12.0-15.5 H 788-0) PLT (test code = See_Comment LL [Automated 777-3) message] The system which generated this result transmit josemanuel reference range : 166 - 358 10*3/ ?L. The reference range was not u sed to interpret th is result as normal/abnormal . MPV (test code = Not Measure d 35860-5) IPF % (test code = 4.3 % 1.3-7.7 Platelet count 5955036736) measured by fluorescence method. NRBC/100 WBC (test See_Comment [Automat ed code = 0156594364) message] The system which generated this result transmit josemanuel reference range : 0.0 - 10.0 /100 WBCs. The reference range was not used to interpret this result as normal/abnormal . NRBC x10^3 (test code <0.01 See_Comment [Auto mated = 8804529410) message] The system which generated this result transmit josemanuel reference range : 10*3/?L. The reference range was not used to interpret this result as normal/abnormal . GRAN MAT (NEUT) % 74.4 % (test code = 770-8) IMM GRAN % (test code 0.50 % = 4735482813) LYMPH % (test code = 10.3 % 736-9) MONO % (test code = 12.3 % 5905-5) EOS % (test code = 2.0 % 713-8) BASO % (test code = 0.5 % 706-2) GRAN MAT x10^3(ANC) 3.02 10*3/uL 1.88-7.09 (test code = 1053807484) IMM GRAN x10^3 (test <0.03 0.00-0.06 code = 1217601770) LYMPH x10^3 (test 0.42 10*3/uL 1.32-3.29 L code = 731-0) MONO x10^3 (test code 0.50 10*3/uL 0.33-0.92 = 742-7) EOS x10^3 (test code 0.08 10*3/uL 0.03-0.39 = 711-2) BASO x10^3 (test code <0.03 0.01-0.07 = 704-7) PLT ESTIMATE (test Decreased Normal A code = 9317-9) SNOW (test code = SNOW) CBC smear reduced platelet Lab Interpretation Abnormal (test code = 42094-7) [facility] CenterN-TERMINAL [id number] 11:07:24 Test Item Value Reference Range Interpretation Comments NT-proBNP (test code 79 pg/mL See_Comment [Autom ated = 8472973870) message] The system which generated this result transmitted reference range : <=125. The reference range was not used to interpret this result as normal/abnormal . SNOW (test code = SNOW) Biotin has been reported to cause a negative bias, interpret results relative to patient's use of biotin. Lab Interpretation Normal (test code = 96568-4) [facility] CenterIRON [id number] 11:04:41 Test Item Value Reference Range Interpretation Comments IRON (test code = 9246126286) 31 ug/dL 50-160 L TIBC (test code = 2847957875) 295 ug/dL 250-410 % FE SAT (test code = 3521923204) 11 % 20-50 L Lab Interpretation (test code = Abnormal 19944-3) [facility] CenterPROTEIN CREAT RATIO URINE [id number] 10:57:19 Test Item Value Reference Range Interpretation Comments T. PROT U (test code = 2888-6) 9 mg/dL CREAT U (test code = 8423267784) 187.5 mg/dL Protein/Creatinine Ratio Urine 0.0-2.0 (test code = 0874234287) [facility] CenterSODIUM, URINE [id number] 10:53:21 Test Item Value Reference Range Interpretation Comments NA URINE (test code = 7728542290) 30 mmol/L [facility] CenterSEDIMENTATION [id number] 10:33:04 Test Item Value Reference Range Interpretation Comments ESR (test code = See_Comment [Automated message] 9166749186) The system [place] h generated this result transmitted ref erence range: 0 - 20 m m/HR. The reference r davi was not used to interpret this result as normal/abnor mal. Lab Interpretation (test Normal code = 15613-2) [facility] CenterPROTHROMBIN TIME / [id number] 09:43:39 Test Item Value Reference Range Interpretation Comments PROTIME PATIENT (test See_Comment H [Auto mated message] code = 5964-2) The system [employer] generated this result transmitted ref erence range: 12.0 - 1 4.7 Seconds. The reference range was not used to int erpret this result as normal/abnormal . INR (test code = 6301-6) Nor mal INR <1.1; Warfarin Therap eutic range 2.0 to 3. 0 or 2.5 to 3.5, dep ending upon the indica tions. Lab Interpretation (test Abnormal code = 58046-4) [facility] CenterLactic Acid Whole [id number] 08:42:38 Test Item Value Reference Range Interpretation Comments LACTIC ACID (test code = 1.47 mmol/L 0.50-2.20 2509925011) Lab Interpretation (test code = Normal 85154-8) [facility] CenterFERRITIN [id number] 07:31:09 Test Item Value Reference Range Interpretation Comments FERRITIN (test code = 12.2 ng/mL 11.0-264.0 8617628310) SNOW (test code = SNOW) Biotin has been reported to cause a negative bias, interpret results relative to patient's use of biotin. Lab Interpretation (test Normal code = 82284-4) [facility] CenterTHYROID STIMULATING [id number] 07:27:08 Test Item Value Reference Range Interpretation Comments TSH (test code = See_Comment [Automated message] 9619785857) The system 2d2c generated this result transmitted ref erence range: 0.45 - 4 .70 mIU/L. The refe rence range was not u sed to interpret this result as normal/abnor mal. Lab Interpretation (test Normal code = 11593-5) [facility] CenterGLYCOSYLATED HEMOGLOBIN (A1C)2020-09-29 07:05:40 Test Item Value Reference Range Interpretation Comments HGB A1C (test code = 5.0 % 4.0-5.7 4548-4) SNOW (test code = SNOW) Reference RangesNormal: <5.7%Prediabetes: 5.7 - 6.4%Diabetes: > 6.5% Lab Interpretation (test Normal code = 00816-0) [facility] CenterURIC [id number] 07:05:35 Test Item Value Reference Range Interpretation Comments URIC ACID (test code = 4162086377) 4.2 mg/dL 2.9-6.0 Lab Interpretation (test code = Normal 53029-8) [facility] CenterCREATINE [id number] 07:05:30 Test Item Value Reference Range Interpretation Comments CK (test code = 1607990547) 192 U/L 33-194 Lab Interpretation (test code = Normal 40629-3) [facility] CenterN-TERMINAL [id number] 07:05:30 Test Item Value Reference Range Interpretation Comments NT-proBNP (test code 94 pg/mL See_Comment [Autom ated = 8982663438) message] The system which generated this result transmitted reference range : <=125. The reference range was not used to interpret this result as normal/abnormal . SNOW (test code = SNOW) Biotin has been reported to cause a negative bias, interpret results relative to patient's use of biotin. Lab Interpretation Normal (test code = 90661-0) [facility] CenterMAGNESIUM2021-06-21 07:04:24 Test Item Value Reference Range Interpretation Comments MAGNESIUM (test code = 4474250930) 1.8 mg/dL 1.7-2.4 Lab Interpretation (test code = Normal 73240-0) [facility] CenterPHOSPHORUS2021-06-21 07:03:39 Test Item Value Reference Range Interpretation Comments PHOSPHORUS (test code = 8955760768) 2.2 mg/dL 2.5-5.0 L Lab Interpretation (test code = Abnormal 98978-3) [facility] CenterLIPID PANEL (68725)(TOTAL CHOLESTEROL, TRIGLYCERIDES, HDL)2020-09-29 06:56:06 Test Item Value Reference Range Interpretation Comments CHOL (test code = 132 mg/dL 120-200 6577790176) HDL (test code = 41 mg/dL >50 L 3286323236) HDLC RATIO (test code = See_Comment [Au tomated message] 1610700037) The system 2d2c generated this result transmit josemanuel reference range : <=4.5. The refe rence range was not u sed to interpret th is result as normal/abnormal . TRIG (test code = 73 mg/dL 30-170 6660228433) LDL CHOL (test code = 76 mg/dL See_Comment [Auto mated message] 87943-5) The system 2d2c generated this result transmit josemanuel reference range : <=160. The refe rence range was not u sed to interpret th is result as normal/abnormal . VLDL (test code = 15 mg/dL 5-60 8357426111) Lab Interpretation (test Abnormal code = 94476-2) [facility] CenterCOVID-19 (ID NOW RAPID TESTING)2020-09-29 06:24:26 Test Item Value Reference Range Interpretation Comments SARS-CoV-2 Rapid ID NOW Not Detected Not Detected (test code = 31104-2) SNOW (test code = SNOW) ID NOW COVID-19 Assay is an isothermal nucleic acid amplification test intended for the qualitative detection of nucleic acid from SARS-CoV-2 viral RNA in nasopharyngeal ([employer]) specimens. It is used under Emergency Use [...] indicated. Lab Interpretation Normal (test code = 54835-0) [facility] CenterURINALYSIS2021-06-21 04:43:31 Test Item Value Reference Range Interpretation Comments APPEARANCE (test code = Clear Clear 2694148776) COLOR (test code = Rosanne Yellow A 2687718040) PH (test code = 4.8-8.0 3977358261) SP GRAVITY (test code = 1.003-1.030 9689119296) GLU U QUAL (test code = Normal Normal 7735075221) BLOOD (test code = Negative Negative 7700406266) KETONES (test code = Negative Negative 8611571199) PROTEIN (test code = 30 mg/dL Negative A 2887-8) UROBILIN (test code = Normal Normal 9313362415) BILIRUBIN (test code = Negative Negative 0000348892) NITRITE (test code = Negative Negative 4841954476) LEUK RANULFO (test code = 25/uL Negative A 1200659446) RBC/HPF (test code = See_Comment [Autom ated message] 1332537729) The system 2d2c generated this result transmitted ref erence range: 0 - 3 HP F. The reference range was not used to int erpret this result as normal/abnormal . WBC/HPF (test code = See_Comment [Autom ated message] 3518362125) The system whic h generated this result transmitted ref erence range: 0 - 5 HP F. The reference range was not used to int erpret this result as normal/abnormal . BACTERIA (test code = Few Negative A 9253221643) MUCOUS (test code = Moderate Negative LPF A 3832017694) SQ EPITH (test code = HPF 4189427840) Lab Interpretation (test Abnormal code = 16009-9) [facility] WITH [id number] 04:39:35 Test Item Value Reference Range Interpretation [...] (test code = 51.3 fL 39.0-49.9 H 18709-7) RDW-CV (test code = 18.1 % 12.0-15.5 H 788-0) PLT (test code = See_Comment L [Automated 777-3) message] The system which generated this result transmit josemanuel reference range : 166 - 358 10*3/ ?L. The reference range was not u sed to interpret th is result as normal/abnormal . MPV (test code = 11.1 fL 9.5-12.9 79193-6) IPF % (test code = 3.7 % 1.3-7.7 Platelet count 5504649143) measured by fluorescence method. NRBC/100 WBC (test See_Comment [Automat ed code = 1436507332) message] The system which generated this result transmit josemanuel reference range : 0.0 - 10.0 /100 WBCs. The reference range was not used to interpret this result as normal/abnormal . NRBC x10^3 (test code <0.01 See_Comment [Auto mated = 6539193995) message] The system which generated this result transmit josemanuel reference range : 10*3/?L. The reference range was not used to interpret this result as normal/abnormal . GRAN MAT (NEUT) % 76.4 % (test code = 770-8) IMM GRAN % (test code 0.80 % = 9452823508) LYMPH % (test code = 9.4 % 736-9) MONO % (test code = 11.3 % 5905-5) EOS % (test code = 1.5 % 713-8) BASO % (test code = 0.6 % 706-2) GRAN MAT x10^3(ANC) 4.07 10*3/uL 1.88-7.09 (test code = 9461913978) IMM GRAN x10^3 (test 0.04 10*3/uL 0.00-0.06 code = 0574446739) LYMPH x10^3 (test 0.50 10*3/uL 1.32-3.29 L code = 731-0) MONO x10^3 (test code 0.60 10*3/uL 0.33-0.92 = 742-7) EOS x10^3 (test code 0.08 10*3/uL 0.03-0.39 = 711-2) BASO x10^3 (test code 0.03 10*3/uL 0.01-0.07 = 704-7) PLT ESTIMATE (test Decreased Normal A code = 9317-9) SNOW (test code = SNOW) Juan slide adgrees to decreased Platelet Lab Interpretation Abnormal (test code = 76865-5) [facility]. METABOLIC PANEL (25220)2020-09-29 04:25:42 Test Item Value Reference Range Interpretation Comments NA (test code = 134 mmol/L 135-145 L 1799302065) K (test code = 3.2 mmol/L 3.5-5.0 L 3903679666) CL (test code = 104 mmol/L 98-108 7855051993) CO2 TOTAL (test code = 24 mmol/L 23-31 4350130074) AGAP (test code = 2-16 4505080670) BUN (test code = 8 mg/dL 7-23 5207750593) GLUCOSE (test code = 105 mg/dL 70-110 9527712871) CREATININE (test code = 0.51 mg/dL 0.50-1.04 4814209626) TOTAL BILI (test code = 2.5 mg/dL 0.1-1.1 H 7324354807) CALCIUM (test code = 8.2 mg/dL 8.6-10.6 L 9841346251) T PROTEIN (test code = 6.3 g/dL 6.3-8.2 0056845546) ALBUMIN (test code = 3.1 g/dL 3.5-5.0 L 6373380124) ALK PHOS (test code = 136 U/L 34-122 H 7915841679) ALTv (test code = 24 U/L 5-35 1742-6) AST(SGOT) (test code = 30 U/L 13-40 3321909366) eGFR (test code = mL/min/1.73m2 5745917184) SNOW (test code = SNOW) Association of [...] tests). Lab Interpretation Abnormal (test code = 80129-2) [facility] Test Item Value Reference Range Interpretation Comments LIPASE (test code = 9754404338) 102 U/L 0-220 Lab Interpretation (test code = Normal 91816-5) [facility] RNA [Presence] in Respiratory specimen by HELENA with probe nzcmqvbqy5568-53-01 00:49:19 Test Item Value Reference Range Interpretation Comments SARS-CoV-2 (COVID-19) RNA Not detected Not-Detected [Presence] in Respiratory specimen by HELENA with probe detection (test code = 83920-7) 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 employed in a healthcare setting (test code = 19605-5) Whether the patient has symptoms related to condition of interest (test code = 85473-6) Patient was hospitalized because of this condition (test code = 64073-7) Whether the patient was admitted to intensive care unit (ICU) for condition of interest (test code = 18969-2) Whether patient resides in a congregate care setting (test code = 73253-4) BROOKE CHOUSARS-CoV-2 (COVID-19) RNA [Presence] in Respiratory specimen by HELENA with probe [id number] 02:47:43 Test Item Value Reference Range Interpretation Comments SARS-CoV-2 (COVID-19) RNA Not detected Not-Detected [Presence] in Respiratory specimen by HELENA with probe detection (test code = 90800-3) BROOKE CHOUSARS-CoV-2 (COVID-19) RNA [Presence] in Respiratory specimen by HELENA with probe qmvalellh2460-40-89 16:32:37 Test Item Value Reference Range Interpretation Comments SARS-CoV-2 (COVID-19) RNA Not detected Not-Detected [Presence] in Respiratory specimen by HELENA with probe detection (test code = 88743-6) BROOKE CHOUSARS-CoV-2 (COVID-19) RNA [Presence] in Respiratory specimen by HELEAN with probe abegndmju6362-67-89 05:29:57 Test Item Value Reference Range Interpretation Comments SARS-CoV-2 (COVID-19) RNA Not detected Not-Detected [Presence] in Respiratory specimen by HELENA with probe detection (test code = 08977-4) [facility] KYLE WESTCT ABDOMEN PELVIS W [id number] 19:27:49 1. ?No evidence of small bowel [...] the priorstudy.Preliminary Report Di ctated by Resident: Vilma Ortez, Frandy Rodriguez MD., have reviewed this study and agree with the abovereport.[facility] WITH [id number] 11:56:00 Test Item Value Reference Range Interpretation [...] (test code = 58.0 fL 39-49.9 H 01637-7) RDW-CV (test code = 16.6 % 12-15.5 H 788-0) PLT (test code = See_Comment LL [Automated 777-3) message] The sy stem which generated this result transmitted reference range : 166 - 358 10*3/ ?L. The reference r davi was not used to interpret this result as normal/abnormal . MPV (test code = 11.0 fL 9.5-12.9 33792-6) IPF % (test code = 5.5 % 1.3-7.7 Platelet count 7143155802) measured by fluorescence method. NRBC/100 WBC (test See_Comment [Automat ed code = 6947160975) message] The system which generated this result transmitted reference range : 0.0 - 10.0 /100 WBCs. The refer ence range was not u sed to interpret th is result as normal/abnormal . NRBC x10^3 (test code <0.01 See_Comment [Auto mated = 9418265583) message] The s ystem which generated this result transmitted reference range : 10*3/?L. The reference range was not used to interpret this result as normal/abnormal . GRAN MAT (NEUT) % 57.6 % (test code = 770-8) IMM GRAN % (test code 0.00 % = 2478650125) LYMPH % (test code = 27.1 % 736-9) MONO % (test code = 11.8 % 5905-5) EOS % (test code = 3.1 % 713-8) BASO % (test code = 0.4 % 706-2) GRAN MAT x10^3(ANC) 1.47 10*3/uL 1.88-7.09 L (test code = 5585534144) IMM GRAN x10^3 (test <0.03 0-0.06 code = 3678483133) LYMPH x10^3 (test code 0.69 10*3/uL 1.32-3.29 L = 731-0) MONO x10^3 (test code 0.30 10*3/uL 0.33-0.92 L = 742-7) EOS x10^3 (test code = 0.08 10*3/uL 0.03-0.39 711-2) BASO x10^3 (test code <0.03 0.01-0.07 = 704-7) Lab Interpretation Abnormal (test code = 50692-5) [facility] MET[facility]OLIC PANEL (44259)2019-08-11 10:42:00 Test Item Value Reference Range Interpretation Comments NA (test code = 138 mmol/L 135-145 7037774514) K (test code = 3.8 mmol/L 3.5-5 8291957389) CL (test code = 108 mmol/L 98-108 7889434792) CO2 TOTAL (test code = 24 mmol/L 23-31 9650262371) AGAP (test code = 2-16 5866047637) BUN (test code = 10 mg/dL 7-23 0927052580) GLUCOSE (test code = 108 mg/dL 70-110 6901681043) CREATININE (test code = 0.43 mg/dL 0.5-1.04 L 5502232741) TOTAL BILI (test code = 2.5 mg/dL 0.1-1.1 H 8982512608) CALCIUM (test code = 8.4 mg/dL 8.6-10.6 L 8758451342) T PROTEIN (test code = 6.1 g/dL 6.3-8.2 L 4252766543) ALBUMIN (test code = 3.1 g/dL 3.5-5 L 0660570899) ALK PHOS (test code = 102 U/L 34-122 1252176107) ALTv (test code = 52 U/L 5-35 H 1742-6) AST(SGOT) (test code = 63 U/L 13-40 H 1979542029) eGFR Calculation mL/min/1.73m2 (Non-) (test code = 9343312713) eGFR Calculation mL/min/1.73m2 () (test code = 7454757606) SNOW (test code = SNOW) Association of [...] tests). Lab Interpretation Abnormal (test code = 35766-9) [facility] CenterXR SMALL BOWEL [id number] 02:08:11 1. ?No bowel obstruction. No fluoroscopic images or fluoroscopic time. RL 6200 HISTORY: ?Abdominal pain COMPARISON: ?None FINDINGS: There is a nonobstructive bowel gas pattern. Contrast is seen throughoutthe entire small bowel and colon. No dilated loops of bowel demonstrated. [facility], Radiant Results Inft User - 08/10/2019 9:09 PM CDTHISTORY: Abdominal painCOMPARISON: NoneFINDINGS:There is a nonobstructive bowel gas pattern. Contrast is seen throughoutthe entire small bowel and colon. No dilated loops of bowel demonstrated.IMPRESSION1. No bowel obstruction.No fluoroscopic images or fluoroscopic time.RL 6200 [facility] HospitalSEDIMENTATION [id number] 16:19:00 Test Item Value Reference Range Interpretation Comments ESR (test code = See_Comment [Automated message] 0389522940) The system 2d2c generated this result transmitted ref erence range: 0 - 20 m m/HR. The reference r davi was not used to interpret this result as normal/abnor mal. Lab Interpretation (test Normal code = 98829-7) [facility] CenterAbdominal 1 View - To confirm [...] this study and agree with the abovereport.[facility] WITH [id number] 13:48:00 Test Item Value Reference Range Interpretation Comments WBC (test code = See_Comment L [Automated 3190-2) message] The system which generated this result transmit josemanuel reference range : 4.30 - 11.10 10*3/?L. The reference range was not used to interpret this result as normal/abnormal . RBC (test code = See_Comment L [Automated 679-8) message] The system which generated this result [...] (test code = 58.4 fL 39-49.9 H 17718-3) RDW-CV (test code = 16.7 % 12-15.5 H 788-0) PLT (test code = See_Comment LL [Automated 777-3) message] The system which generated this result transmit josemanuel reference range : 166 - 358 10*3/ ?L. The reference range was not u sed to interpret th is result as normal/abnormal . MPV (test code = 10.5 fL 9.5-12.9 27049-8) IPF % (test code = 3.0 % 1.3-7.7 Platelet count 7334392667) measured by fluorescence method. NRBC/100 WBC (test See_Comment [Automat ed code = 5532953901) message] The system which generated this result transmit josemanuel reference range : 0.0 - 10.0 /100 WBCs. The reference range was not used to interpret this result as normal/abnormal . NRBC x10^3 (test code <0.01 See_Comment [Auto mated = 4776750324) message] The system which generated this result transmit josemanuel reference range : 10*3/?L. The reference range was not used to interpret this result as normal/abnormal . GRAN MAT (NEUT) % 57.1 % (test code = 770-8) IMM GRAN % (test code 0.40 % = 2324393292) LYMPH % (test code = 28.1 % 736-9) MONO % (test code = 10.4 % 5905-5) EOS % (test code = 3.6 % 713-8) BASO % (test code = 0.4 % 706-2) GRAN MAT x10^3(ANC) 1.42 10*3/uL 1.88-7.09 L (test code = 2497822179) IMM GRAN x10^3 (test <0.03 0-0.06 code = 9691712614) LYMPH x10^3 (test 0.70 10*3/uL 1.32-3.29 L code = 731-0) MONO x10^3 (test code 0.26 10*3/uL 0.33-0.92 L = 742-7) EOS x10^3 (test code 0.09 10*3/uL 0.03-0.39 = 711-2) BASO x10^3 (test code <0.03 0.01-0.07 = 704-7) PLT ESTIMATE (test Critically Normal AA code = 9317-9) Decreased Lab Interpretation Abnormal (test code = 01140-0) [facility] CenterGLYCOSYLATED HEMOGLOBIN (A1C)2019-08-10 13:13:00 Test Item [...] Indicated Lab Interpretation Normal (test code = 05371-9) [facility] CenterTHYROID STIMULATING [id number] 13:05:00 Test Item Value Reference Range Interpretation Comments TSH (test code = See_Comment [Automated message] 4540452800) The system 2d2c generated this result transmitted ref erence range: 0.45 - 4 .70 mIU/L. The refe rence range was not u sed to interpret this result as normal/abnor mal. Lab Interpretation (test Normal code = 00832-9) [facility] CenterPREGNANCY TEST, [id number] 13:04:00 Test Item Value Reference Range Interpretation Comments PREG SERUM (test code Negative = 1335812791) SNOW (test code = SNOW) Less than 10 IU/L. ?If low titer or ectopic is suspected, resubmit specimen in 48-72 hours. [facility] CenterLIPID PANEL (72221)(TOTAL CHOLESTEROL, TRIGLYCERIDES, HDL)2019-08-10 12:36:00 Test Item Value Reference Range Interpretation Comments CHOL (test code = 158 mg/dL 120-200 4147014673) HDL (test code = 47 mg/dL >50 L 6341439751) HDLC RATIO (test code = See_Comment [Au tomated message] 7195995682) The system 2d2c generated this result transmit josemanuel reference range : <=4.5. The refe rence range was not u sed to interpret th is result as normal/abnormal . TRIG (test code = 51 mg/dL 30-170 8361637735) LDL CHOL (test code = 101 mg/dL See_Comment [Auto mated message] 51146-2) The system 2d2c generated this result transmit josemanuel reference range : <=160. The refe rence range was not u sed to interpret th is result as normal/abnormal . VLDL (test code = 10 mg/dL 5-60 8451076674) Lab Interpretation (test Abnormal code = 23940-1) [facility]. METABOLIC PANEL (88482)2019-08-10 12:35:00 Test Item Value Reference Range Interpretation Comments NA (test code = 139 mmol/L 135-145 2834907853) K (test code = 3.9 mmol/L 3.5-5 8480777541) CL (test code = 109 mmol/L 98-108 H 1157369483) CO2 TOTAL (test code = 25 mmol/L 23-31 2423107523) AGAP (test code = 2-16 0784806029) BUN (test code = 15 mg/dL 7-23 5476058913) GLUCOSE (test code = 218 mg/dL 70-110 H 0883199524) CREATININE (test code = 0.40 mg/dL 0.5-1.04 L 2260756725) TOTAL BILI (test code = 2.0 mg/dL 0.1-1.1 H 6660056724) CALCIUM (test code = 8.5 mg/dL 8.6-10.6 L 4256862942) T PROTEIN (test code = 6.2 g/dL 6.3-8.2 L 1589753682) ALBUMIN (test code = 3.1 g/dL 3.5-5 L 4127158745) ALK PHOS (test code = 99 U/L 34-122 5161381759) ALTv (test code = 42 U/L 5-35 H 1742-6) AST(SGOT) (test code = 49 U/L 13-40 H 7123203393) eGFR Calculation mL/min/1.73m2 (Non-) (test code = 0853318466) eGFR Calculation mL/min/1.73m2 () (test code = 2814331759) SNOW (test code = SNOW) Association of [...] tests). Lab Interpretation Abnormal (test code = 16124-5) [facility] CenterMAGNESIUM2020-05-01 12:35:00 Test Item Value Reference Range Interpretation Comments MAGNESIUM (test code = 2667594921) 1.6 mg/dL 1.7-2.4 L Lab Interpretation (test code = Abnormal 38999-8) [facility] CenterPHOSPHORUS2020-05-01 12:35:00 Test Item Value Reference Range Interpretation Comments PHOSPHORUS (test code = 0157022552) 3.6 mg/dL 2.5-5 Lab Interpretation (test code = Normal 50103-3) [facility] CenterCREATINE [id number] 12:35:00 Test Item Value Reference Range Interpretation Comments CK (test code = 5559685929) 123 U/L 33-194 Lab Interpretation (test code = Normal 44036-5) [facility] CenterLIPASE2020-05-01 12:35:00 Test Item Value Reference Range Interpretation Comments LIPASE (test code = 0916974638) 141 U/L 0-220 Lab Interpretation (test code = Normal 38823-3) [facility] CenterAMYLASE2020-05-01 12:34:00 Test Item Value Reference Range Interpretation Comments LIN (test code = 2977923041) 73 U/L 35-110 Lab Interpretation (test code = Normal 33957-3) [facility] CenterPROTHROMBIN TIME / [id number] 12:07:00 Test Item Value Reference Range Interpretation Comments PROTIME PATIENT (test See_Comment H [Auto mated message] code = 5964-2) The system 1spire generated this result transmitted ref erence range: 12.0 - 1 4.7 Seconds. The reference range was not used to int erpret this result as normal/abnormal . INR (test code = 6301-6) Nor mal INR <1.1; Warfarin Therap eutic range 2.0 to 3. 0 or 2.5 to 3.5, dep ending upon the indica tions. Lab Interpretation (test Abnormal code = 47034-2) [facility] CenterCORONAVIRUS COVID-19 [id number] 10:18:00 Test Item Value Reference Range Interpretation Comments SARS-CoV-2 (test code = Not Detected Not Detected 59664-7) SNOW (test code = SNOW) ID NOW COVID-19 Assay is an isothermal nucleic acid amplification test intended for the qualitative detection of nucleic acid from SARS-CoV-2 viral RNA in nasopharyngeal ([employer]) specimens. It is used under Emergency Use [...] indicated. Lab Interpretation Normal (test code = 59723-0) [facility] CenterRAD, CHEST, 1 VIEW, NON [id number] 07:50:00Reason for exam:->SOBShould this be performed at the bedside?->Yes FINAL REPORT CLINICAL HISTORY: SOB TECHNIQUE: 1 view of the chest. COMPARISON: None IMPRESSION: There is pulmonary vascular congestion with prominent lung markings bilaterally. Subpulmonic pleural effusions cannot be excluded. The cardiomediastinal silhouette is magnified by technique. Signed: Franky Hoyt MDReport Verified Date/Time: 10/03/2018 07:50:47 Reading Location: [facility] Radiology Reading Room [id number] 07:37:00 Test Item Value Reference Range Interpretation Comments MAGNESIUM (BEAKER) (test code = 1.6 mg/dL 1.6-2.6 627) BASIC METABOLIC [id number] 07:37:00 Test Item Value Reference Range Interpretation [...] DIALYSIS PATIEN TS. Specimen slightly ictericHEPATIC FUNCTION [id number] 07:37:00 Test Item Value Reference Range Interpretation [...] 35 U/L 6-55 347) Specimen slightly ictericPROTHROMBIN TIME/[id number] 06:25:00 Test Item Value Reference Range Interpretation [...] mechanical heart valves.CBC W/PLT COUNT & AUTO [id number] 06:16:00 Test Item Value Reference Range Interpretation [...] = 3438) Received comment: User comments: Slide comments:[id number] 05:58:00 Test Item Value Reference Range Interpretation Comments MAGNESIUM (BEAKER) (test code = 1.6 mg/dL 1.6-2.6 627) BASIC METABOLIC [id number] 05:58:00 Test Item Value Reference Range Interpretation [...] DIALYSIS PATIEN TS. Specimen slightly ictericHEPATIC FUNCTION [id number] 05:58:00 Test Item Value Reference Range Interpretation [...] 39 U/L 6-55 347) Specimen slightly ictericPROTHROMBIN TIME/[id number] 05:26:00 Test Item Value Reference Range Interpretation [...] mechanical heart valves.CBC W/PLT COUNT & AUTO [id number] 05:20:00 Test Item Value Reference Range Interpretation [...] WBC 0-0 (test code = 413) VITAMIN [id number] 06:57:00 Test Item Value Reference Range Interpretation Comments VITAMIN B12 (BEAKER) (test code = 178 pg/mL 213-816 L 774) [id number] 06:57:00 Test Item Value Reference Range Interpretation Comments FERRITIN (BEAKER) (test code = 361) 21 ng/mL 5-275 FOLATE, [id number] 06:57:00 Test Item Value Reference Range Interpretation [...] 28 % 20-55 (test code = 2590) [id number] 05:59:00 Test Item Value Reference Range Interpretation Comments MAGNESIUM (BEAKER) (test code = 1.7 mg/dL 1.6-2.6 627) BASIC METABOLIC [id number] 05:59:00 Test Item Value Reference Range Interpretation [...] FOR DIALYSIS PATIEN TS. Specimen slightly ictericLIPID [id number] 05:59:00 Test Item Value Reference Range Interpretation [...] Very High >=190 Specimen slightly ictericHEPATIC FUNCTION [id number] 05:59:00 Test Item Value Reference Range Interpretation [...] = 41 U/L 6-55 347) Specimen slightly [id number] 05:59:00 Test Item Value Reference Range Interpretation Comments LIPASE (BEAKER) (test code = 749) 35 U/L 8-78 Specimen slightly ictericPROTHROMBIN TIME/[id number] 05:58:00 Test Item Value Reference Range Interpretation [...] mechanical heart valves.CBC W/PLT COUNT & AUTO [id number] 05:37:00 Test Item Value Reference Range Interpretation [...] PERCENT (BEAKER) (test code = 2801) POCT-HEMOGLOBIN [id number] 06:12:00 Test Item Value Reference Range Interpretation Comments POC-HEMOGLOBIN METER 8.6 g/dL 12.0-15.0 L TESTED AT [facility] 6720 (BEAKER) (test code = JOANNA BARAHONA 17447 1539)"
--- NOTE | 2022-04-06 06:40 | ER ---
Nurse's Notes [facility] Name: Zenaida Goss Age: 61 yrs Sex: Female : 1960 Arrival Date: 04/06/2022 Time: 06:13 Bed 6 Private MD: Diagnosis: Pain in right leg;Pain in left leg Presentation: 04/06 06:37 Chief complaint: Patient states: C/o bilateral leg pain , states "Its worse at night, I ll3 can't sleep". Coronavirus screen: Vaccine status: Patient reports receiving the 2nd dose of the covid vaccine. At this time, the client does not indicate any symptoms associated with coronavirus-19. Ebola Screen: No symptoms or risks identified at this time. Initial Sepsis Screen: Does the patient meet any 2 criteria? No. Patient's initial sepsis screen is negative. Does the patient have a suspected source of infection? No. Patient's initial sepsis screen is negative. Risk Assessment: Do you want to hurt yourself or someone else? Patient reports no desire to harm self or others. Onset of symptoms was March 30, 2022. 06:37 Method Of Arrival: Ambulatory ll3 06:37 Acuity: TANK 3 ll3 Historical: - Allergies: 06:39 Demerol; ll3 06:39 Dilaudid; ll3 06:39 Morphine (Anaphylaxis); ll3 06:39 Zofran; ll3 - Home Meds: 06:39 Lactulose Oral [Active]; Lasix Oral [Active]; Protonix Oral [Active]; Spironolactone ll3 Oral [Active]; - PMHx: 06:39 Anemia; breast cancer; Cirrhosis; ESOPHAGEAL VARACIES; fatty liver; Heart Murmur; ll3 Pancreatitis; polyp; - PSHx: 06:39 Appendectomy; Cholecystectomy; Lumpectomy of breast; right knee surgery; right ll3 lymphectomy; Total abdominal hysterectomy; - Immunization history:: Client reports receiving the 2nd dose of the Covid vaccine. - Social history:: Smoking status: Patient denies any tobacco usage or history of. - Family history:: not pertinent. - Hospitalizations: : No recent hospitalization is reported. Screenin:14 [facility] ED Fall Risk Assessment (Adult) History of falling in the last 3 months, pf1 including since admission No falls in past 3 months (0 pts) Confusion or Disorientation No (0 pts) Intoxicated or Sedated No (0 pts) Impaired Gait No (0 pts) Mobility Assist Device Used No (0 pt) Altered Elimination No (0 pt) Score/Fall Risk Level 0 - 2 = Low Risk Oriented to surroundings, Maintained a safe environment, Educated pt \\T\\ family on fall prevention, incl call for assistance when getting out of bed, Assessed \\T\\ reinforced patient's understanding of fall precautions, Provided non-skid footwear, Hourly rounding (assess needs \\T\\ fall precautionary measures) done, Used ambulatory aids as needed (educated on \\T\\ assisted with), Used gait belt as appropriate. Abuse screen: Denies threats or abuse. Nutritional screening: No deficits noted. Tuberculosis screening: No symptoms or risk factors identified. Assessment: 06:35 General: Appears in no apparent distress. uncomfortable, well groomed, well developed, pf1 Behavior is calm, cooperative, appropriate for age, quiet. 06:35 Pain: Complains of pain in right quadriceps and left quadriceps Pain began 1 week. pf1 Neuro: No deficits noted. Level of Consciousness is awake, alert, obeys commands, Oriented to person, place, time, situation. 06:35 Cardiovascular: No deficits noted. Reports. Respiratory: No deficits noted. Airway is pf1 patent Respiratory effort is even, unlabored, Respiratory pattern is regular, symmetrical. GI: No deficits noted. No signs and/or symptoms were reported involving the gastrointestinal system. : No deficits noted. No signs and/or symptoms were reported regarding the genitourinary system. EENT: No deficits noted. No signs and/or symptoms were reported regarding the EENT system. Derm: No deficits noted. No signs and/or symptoms reported regarding the dermatologic system. Musculoskeletal: Reports pain in bilateral upper leg pain. Vital Signs: 06:37 BP 153 / 78; Pulse 94; Resp 18; Temp 98.4(O); Pulse Ox 99% on R/A; Weight 115.67 kg ll3 (R); Height 5 ft. 4 in. (162.56 cm) (R); Pain 10/10; 06:38 BP 147 / 68 LA Sitting (auto/lg); mb4 07:13 BP 147 / 68; Pulse 90; Resp 18; Temp 98.2; Pulse Ox 100% on R/A; Pain 8/10; pf1 06:37 Body Mass Index 43.77 (115.67 kg, 162.56 cm) 3 ED Course: 06:13 Patient arrived in ED. ja2 06:16 Marcio Stone MD is Attending Physician. rn 06:39 Triage completed. 3 06:39 Arm band placed on Patient placed in an exam room, on a stretcher, on pulse oximetry. 3 06:54 Martha clarke, RN is Primary Nurse. pf1 07:14 No provider procedures requiring assistance completed. Patient did not have IV access pf1 during this emergency room visit. 07:15 Bed in low position. Call light in reach. pf1 Administered Medications: 06:50 Drug: fentaNYL (PF) 50 mcg Route: IM; Site: left deltoid; pf1 07:11 Follow up: Response: No adverse reaction; Marked relief of symptoms; Pain is decreased; pf1 RASS: Alert and Calm (0) 06:50 Drug: Flexeril (cyclobenzaprine) 10 mg Route: PO; pf1 07:11 Follow up: Response: Marked relief of symptoms; Pain is decreased; RASS: Alert and Calm pf1 (0) Medication: 07:15 VIS not applicable for this client. pf1 Outcome: 06:40 Discharge ordered by . rn 07:14 Discharged to home ambulatory, with family. pf1 07:14 Condition: improved 07:14 Discharge instructions given to patient, Instructed on discharge instructions, follow up and referral plans. medication usage, Demonstrated understanding of instructions, follow-up care, medications, Prescriptions given X 1. 07:15 Patient left the ED. pf1 Signatures: Marcio Stone MD MD rn Baxter, Mackenzie mb4 Chante Mills Jocelyne Pacheco RN RN 3 Martha clarke, ERIC RN pf1
--- NOTE | 2022-04-06 06:41 | EDPHYS ---
Physician Documentation [facility] Name: Zenaida Goss Age: 61 yrs Sex: Female : 1960 Arrival Date: 04/06/2022 Time: 06:13 Bed 6 Private MD: ED Physician Marcio Stone HPI: 04/06 06:35 This 61 yrs old Female presents to ER via Unassigned with complaints of Leg rn Pain. 06:35 The patient presents with pain, that is chronic. The complaints affect the lateral rn aspect of left thigh, left hamstring, medial aspect of left thigh and left quadriceps. Onset: The symptoms/episode began/occurred 2 week(s) ago. Onset: The symptoms/episode began/occurred. Modifying factors: The symptoms are alleviated by walking around. Associated signs and symptoms: Pertinent negatives fever, numbness, swelling, warmth, weakness. Severity of symptoms: At their worst the symptoms were moderate, in the emergency department the symptoms are unchanged. The patient has experienced similar episodes in the past. The patient has been recently seen by a physician:. Pt reports 2 weeks of worsening leg pain, both thighs, no trauma, no fever, no weakness, no swelling. Seen for this by PCP, got xray of back and given prescription for gabapentin, has now been on it for 1 week, only helping a little. No hx of dvt/PE. . Historical: - Allergies: 06:39 Demerol; ll3 06:39 Dilaudid; ll3 06:39 Morphine (Anaphylaxis); ll3 06:39 Zofran; ll3 - Home Meds: 06:39 Lactulose Oral [Active]; Lasix Oral [Active]; Protonix Oral [Active]; Spironolactone ll3 Oral [Active]; - PMHx: 06:39 Anemia; breast cancer; Cirrhosis; ESOPHAGEAL VARACIES; fatty liver; Heart Murmur; ll3 Pancreatitis; polyp; - PSHx: 06:39 Appendectomy; Cholecystectomy; Lumpectomy of breast; right knee surgery; right ll3 lymphectomy; Total abdominal hysterectomy; - Immunization history:: Client reports receiving the 2nd dose of the Covid vaccine. - Social history:: Smoking status: Patient denies any tobacco usage or history of. - Family history:: not pertinent. - Hospitalizations: : No recent hospitalization is reported. ROS: 06:35 Constitutional: Negative for fever, chills, and weight loss, Cardiovascular: Negative rn for chest pain, palpitations, and edema, Back: Negative for injury and pain, MS/Extremity: + pain to bilateral thighs Skin: Negative for injury, rash, and discoloration, Neuro: Negative for headache, weakness, numbness, tingling, and seizure. Exam: 06:35 Constitutional: This is a well developed, well nourished patient who is awake, alert, rn and in no acute distress. Ambulatory to room without difficulty or assistance. Cardiovascular: Regular rate and rhythm. No pulse deficits. Skin: Warm, dry, no cellulitis, no cyanosis MS/ Extremity: Pulses equal, no cyanosis. Neurovascular intact. Full, normal range of motion. Equal circumference. Neuro: Awake and alert, GCS 15. Motor strength 5/5 in all extremities. Sensory grossly intact. Cerebellar exam normal. Normal gait. Vital Signs: 06:37 BP 153 / 78; Pulse 94; Resp 18; Temp 98.4(O); Pulse Ox 99% on R/A; Weight 115.67 kg ll3 (R); Height 5 ft. 4 in. (162.56 cm) (R); Pain 10/10; 06:38 BP 147 / 68 LA Sitting (auto/lg); mb4 07:13 BP 147 / 68; Pulse 90; Resp 18; Temp 98.2; Pulse Ox 100% on R/A; Pain 8/10; pf1 06:37 Body Mass Index 43.77 (115.67 kg, 162.56 cm) ll3 MDM: 06:16 Patient medically screened. rn 06:35 Differential diagnosis: muscle spasm, radiculopathy, neuropathy. Data reviewed: vital rn signs, nurses notes, old medical records, and as a result, I will discharge patient. Counseling: I had a detailed discussion with the patient and/or guardian regarding: the historical points, exam findings, and any diagnostic results supporting the discharge/admit diagnosis, the need for outpatient follow up, to return to the emergency department if symptoms worsen or persist or if there are any questions or concerns that arise at home. Special discussion: I discussed with the patient/guardian in detail that at this point there is no indication for admission to the hospital. It is understood, however, that if the symptoms persist or worsen the patient needs to return immediately for re-evaluation. Further emergent ED testing is not indicated at this point in time. I discussed with the patient/guardian in detail the need to arrange with the PCP or specialist further outpatient testing, MRI, Based on the history and exam findings, there is no indication for further emergent testing or inpatient evaluation. I discussed with the patient/guardian the need to see the production painter for further evaluation of the symptoms. I discussed with the patient/guardian the need to see the primary care provider for further evaluation of the symptoms. ED course: Pt with strong bilateral pulses, no swelling, no sign of infection, no indication for xrays without trauma. Already had xrays of back and on gabapentin. Will treat pain, and recommend outpt MRI as her doctor has already recommended. REturn precautions given and understood. . Administered Medications: 06:50 Drug: fentaNYL (PF) 50 mcg Route: IM; Site: left deltoid; pf1 07:11 Follow up: Response: No adverse reaction; Marked relief of symptoms; Pain is decreased; pf1 RASS: Alert and Calm (0) 06:50 Drug: Flexeril (cyclobenzaprine) 10 mg Route: PO; pf1 07:11 Follow up: Response: Marked relief of symptoms; Pain is decreased; RASS: Alert and Calm pf1 (0) Disposition Summary: 04/06/22 06:40 Discharge Ordered Location: Home rn Problem: an ongoing problem rn Symptoms: have improved rn Condition: Stable rn Diagnosis - Pain in right leg rn - Pain in left leg rn Followup: rn - With: Private Physician - When: As needed - Reason: Recheck today's complaints, Re-evaluation by your physician Discharge Instructions: - Discharge Summary Sheet rn - Musculoskeletal Pain rn - Pain Without a Known Cause rn Forms: - Medication Reconciliation Form rn - Thank You Letter rn - Antibiotic internal audit director - Prescription Opioid Use rn Prescriptions: - Cyclobenzaprine 10 mg Oral Tablet - take 1 tablet by ORAL route every 8-12 hours As needed; 15 tablet; Refills: 0, rn Product Selection Permitted Signatures: Marcio Stone MD MD rn Loubet, Lynsea, RN RN ll3 Martha clarke RN RN pf1 Corrections: (The following items were deleted from the chart) 06:38 06:35 Constitutional: This is a well developed, well nourished patient who is awake, rn alert, and in no acute distress. Ambulatory to room without difficulty or assistance. Skin: Warm, dry, no cellulitis, no cyanosis MS/ Extremity: Pulses equal, no cyanosis. Neurovascular intact. Full, normal range of motion. Equal circumference. Neuro: Awake and alert, GCS 15. Motor strength 5/5 in all extremities. Sensory grossly intact. Cerebellar exam normal. Normal gait. rn
[2022-04-06] MEDS ORDERED: CYCLOBENZAPRINE 10 MG TAB ONE (06:48)
[2022-04-06] MEDS ORDERED: FENTANYL CITR 100 MCG/2 ML ONE (06:51)
[2022-04-06 07:22] VITALS: BP 147/68
[2022-04-06 07:23] VITALS: TEMP 98.2; O2SAT 100
== END 2022-04-06 07:15 | disposition home or self-care (01) ==
LOC: ER 06:09
DX: M79.604 Pain in right leg (principal); M79.605 Pain in left leg; Z88.5 Allergy status to narcotic agent; Z88.8 Allergy status to other drugs, medicaments and biological substances
CPT/HCPCS: 96372; 99283; J3010

== ENCOUNTER 2022-04-30 10:35 | Emergency (ER) | payer OTHER ==
--- OUTSIDE RECORDS SUMMARY | 2022-04-30 10:50 | XMS REPORT | Continuity of Care Document ---
:1960 Author Organization [facility] Address [address] [place] [address] Care Team Providers Name Role Phone Madhu Miranda Primary Care Physician Unavailable Annalise Souza Attending Clinician Unavailable Madhu Miranda Attending Clinician Unavailable ESTEPHANIA FLOOD Attending Clinician Unavailable Estephania Flood MD Attending Clinician EMILY SALGADO Attending Clinician Unavailable Emily Salgado MD Attending Clinician Dre REYES, Rhoda Attending Clinician Unavailable Stevo Hoskins DO Attending Clinician Jeremy Sandoval MD Attending Clinician [phone] FLORIAN AYERS Attending Clinician Unavailable Florian Ayers DO Attending Clinician Charline HENSLEY, Rolando Pettit Attending Clinician Sylvia HENSLEY, Bebeto Attending Clinician Nancy HENSLEY, Nakia Attending Clinician Consuelo HENSLEY, Aziza Attending Clinician Umang HENSLEY, Bebeto Sanchez Attending Clinician Verónica HENSLEY, Carolin Diaz Attending Clinician Amandeep HENSLEY, Vadnana Mae Attending Clinician Thomas HENSLEY, Elias Attending Clinician Karlo HENSLEY, Handy Blanco Attending Clinician [phone] Nafisa HENSLEY, Jefferson Lisa Attending Clinician Jose HENSLEY, Willian Snowden Attending Clinician Ronnie HENSLEY, Mahnaz Attending Clinician Feng Burgos Attending Clinician Mayda Aleman MD, Sharita Attending Clinician [phone] Maite HENSLEY, Anand Baron Attending Clinician Sukhdev SOTO Attending Clinician Unavailable Sukhdev Fajardo Attending Clinician Doctor Unassigned, Hissop Attending Clinician Unavailable [facility]opedic Attending [...] Clinician Unavailable DRE MAYER Attending Clinician Unavailable ESTEPHAINA FLOOD Admitting Clinician Unavailable JEREMY SADNOVAL Admitting Clinician Unavailable FLORIAN AYERS Admitting Clinician Unavailable BEBETO WARD Admitting Clinician Unavailable MD NAKIA CRUZ Admitting Clinician Unavailable SHANNAREDO STEVO Gallardo Admitting Clinician Unavailable Sukhdev SOTO Admitting Clinician [...] Number Effective Date Expiration Date [facility] [id number] 2019 CHOICE 00:00:00 Problems Condition Condition Condition [...] Added automatic ally from request for surgery [id number] Gastritis Gastritis Disease Active Met hodi without without 9-24 st bleeding, bleeding, 00:00: [facility] unspecifie [...] Added automatic ally from request for surgery [id number] Pancolitis Pancolitis Disease Active U nivers 6-21 ity of 00:00: [place] 00 Medical Branch Arrhythmia Arrhythmia Disease Active U nivers 6-21 ity of 00:00: [place] [facility] Ventricula Ventricula Disease Active U nivers r r 6-21 [place] of tachycardi [place]cardi [place] Other Other Disease Active Univers cirrhosis cirrhosis - ity of of liver of liver 00:00: [place] 00 Medical Branch ANAYA ANAYA Disease Active Univers (nonalcoho (nonalcoho 6 it y of lic lic 00:00: [place] steatohepa steatohepa 00 Me dical titis) titis) Branch Hypokalemi Hypokalemi Disease Active U nivers a a 6-21 ity of 00:00: [place] 00 Medical Branch Acute Acute Disease Active Univers colitis colitis 6-21 ity of 00:00: [place] 00 Medical Branch Abdominal Abdominal Disease Active Met hodi pain, pain, 3-02 st acute acute 00:00: Hospita 00 l Liver Liver Disease Active Methodi cirrhosis cirrhosis 3 st 00:00: Hospita 00 l Epigastric Epigastric Disease Active M ethodi pain pain 3- st 00:00: Hospita 00 l Pancreatit Pancreatit Disease Active 2019-04 M ethodi is due to is due to 2 st common common 00:00: Hospita bile duct bile duct 00 l stone stone Disorder Disorder Disease Active 2019-04 Metho di of liver of liver 2 st 00:00: Hospita 00 l Acute Acute Disease Active 2019-04 Methodi pancreatit pancreatit 2 [address] is without is without 00:00: Ho spita infection infection 00 l or or necrosis necrosis SBO (small SBO (small Disease Active U nivers bowel bowel 5 ity of obstructio obstructio 00:[place]: [place] 00 Medical Branch Increased Increased [...] of - [facility] right knee right knee [facility] Primary Primary Diagnosis Active 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 of itis of - [facility] left knee left knee [facility] Allergies, Adverse Reactions, Alerts Allergy Allergy Status Severity Reaction(s) Onset Inactive Treating Comm ents Source Name Type Date Date Clinician Adhesive Propensi Active Rash Method i Tape-Hillary ty to 01-05 st icones adverse 00:00: Hospita reaction 00 [...] (See 2019-04 Tightness Methodi ty to Comments) [address] adverse 00:00: Hospita reaction [...] Commo n Reaction Available Spiri t - [facility] Social History Social Habit Start Date Stop Date Quantity Comments Source History [facility] Alcohol Std Drinks History [facility] Alcohol Binge Exposure to 2022-04-05 2022-04-15 Not sure [facility] SARS-CoV-2 00:00:00 20:13:00 [facility] (event) Branch Alcohol intake 2022-02-05 2022-02-05 Lifetime [facility] 00:00:00 00:00:00 non-drinker (finding) History [facility] 2020-03-19 2020-03-19 1 [facility] Alcohol Frequency 00:00:00 00:00:00 Tobacco use and 2016-06-30 2016-06-[address] [facility] [address] [facility] exposure 00:00[facility]00 [facility]:00 [facility] Sex Assigned At [birth year] [facility] 00:00:00 00:00:00 Smoking Status Start Date Stop Date Source Never smoked tobacco [facility] Medications Ordered Filled Start Stop Current Ordering Indication Dosage Frequency Signature Comments Components Source Medication Medication Date Date Medication? Clinician (SIG) Name Name ipratropium 2022- No 3mL 3 mL, Univ ers -albuteroL 04-16 Inhalation it y of (DUONEB) 02:30: 03:21 , ONCE, 1 [place] as 0.5 mg-3 00 :00 dose, On Medical mg(2.5 mg Geraldine 04/15/22 Bran ch base)/3 mL at 2029, nebulizer VERN solution 3 mL furosemide No 40mg 40 mg, IV U nivers (LASIX) 04-16- Push, ity of injection 02:30: 02:46 ONCE, 1 [place] 40 mg 00 :00 dose, On Medical Geraldine 04/15/22 Branch at 2029, VERN lactulose Yes 30mL Take 30 mL Un marline 10 gram/15 1-05 by mouth ity o f mL oral 22:09: daily. [place] solution 04 Medical Branch pantoprazol Yes 40mg Take 40 mg Univers e -05 by mouth ity of (PROTONIX) 22:09: daily. [place] 40 mg EC 04 Medical tablet Branch albuterol Yes [id number] 2{puff} Inhale 2 Univers 90 1-05 Puffs ity of mcg/actuati 00:00: every 4 [place] as on inhaler 00 (four) Medical hours as Branch needed for Wheezing or Shortness of Breath. albuterol Yes [id number] 2.5mg Inhale 3 Univers 2.5 mg /3 1-05 mL every 4 ity of mL (0.083 00:00: (four) [place] %) 00 hours. May Medical nebulizer also Branch solution nebulize one extra every 6 hours. furosemide 2022- Yes [id number] 20mg Take 1 Univers 20 mg 04-15 tablet by ity of tablet 00:00: 05:59 mouth [place] 00 :00 every Medical morning Branch and evening for 5 days. predniSONE 2022- Yes [id number] 20mg Take 1 Univers 20 mg 04-15-08 tablet by ity of tablet 00:00: 05:59 mouth in [place] 00 :00 the Medical morning Branch and 1 tablet in the evening. Do all this for 2 days. FENTanyl PF 2021-04 No 50ug 50 mcg, Un marline (SUBLIMAZE 12-31 Slow IV ity o f (PF)) 04:30: 03:33 Push, [place] injection 00 :00 ONCE, 1 Medical 50 mcg dose, On Branch 04/09/22 at 2230, VERN cefTRIAXone 2021-04 No 1000mg 1,000 mg, Univers (ROCEPHIN) 04-10 IV ity of 1,000 mg in 03:00: 03:45 [facility], [place] NaCl 0.9% 00 :00 ONCE, 1 Medical (NS) 50 mL dose, On Bran h MINI-BAG 04/09/22 at 2100, Administer over 30 Minutes, 50 mL
Reas on for Anti-Infec tive: Documented Infection< br>Documen josemanuel Infection Site: Urine<br&g t;Duration of Therapy: 7 days lactulose 2021-04 No 30mL 30 mL, Unive rs (CEPHULAC) 04-10 Oral, ity of solution 30 03:00: 03:10 [place]CE[place] 1 [place] mL 00 :00 dose, On Medical Fri Branch 04/09/22 at 2100, VERN KCL 10 mEq 2021-04 Yes [id number] 10meq Take 1 Univers tablet 2-30 [id number] tablet by ity of 00:00: mouth in [place] 00 the Medical morning. Branch ciprofloxac 2021-04 Yes [id number] 500mg Take 1 Univers in HCl 500 2-30 [id number] tablet by it y of mg tablet 00:00: mouth in [facility] 00 the Medical morning Branch and 1 tablet in the evening. KCL 10 mEq 2021-04 Yes [id number] 10meq Take 1 Univers tablet 2-30 [id number] tablet by ity of 00:00: mouth in [place] 00 the Medical morning. Branch ciprofloxac 2021-04 Yes [id number] 500mg Take 1 Univers in HCl 500 2-30 [id number] tablet by it y of mg tablet 00:00: mouth in [facility] 00 the Medical morning Branch and 1 tablet in the evening. psyllium 2021-04- Yes 1{packe Q48H Take 1 Met racheli obiek 05-01 t} packet by st sugar-free 00:00: 05:59 mouth Hospi ta (METAMUCIL) 00 :00 every l 6 gram other day packet for 30 days. psyllium 2021-04- Yes 1{packe Q48H Take 1 Met hodi husk 05-01 t} packet by st sugar-free 00:00: [...] times a day. lipase-prot 2021-04 Yes 1{capsu Q.05193927 Take 1 Methodi ease-amylas 1-19 le} [id number] capsule by st e (CREON) 18:47: 3D [...] times a day. lipase-prot 2021-04 Yes 1{capsu Q.06196670 Take 1 Methodi ease-amylas 1-19 le} [id number] capsule by st e (CREON) 18:47: 3D [...] times a day. lipase-prot 2021-04 Yes 1{capsu Q.47184532 Take 1 Methodi ease-amylas 1-19 le} [id number] capsule by st e (CREON) 18:47: 3D mouth 3 Hospi ta 36,000-114, 48 (three) l 000- times a 180,000 day. unit capsule,del ayed release(DR/ EC) methocarbam 2021-04 Yes 500mg Q.25D Take 1 Me thodi oL 1-[address] (ROBAXIN) 18:47: (500 mg Hospi ta 500 MG 48 total) by l tablet mouth 4 (four) times a day. lipase-prot 2021-04 Yes 1{capsu Q.54151664 Take 1 Methodi ease-amylas -19 le} [id number] capsule by st e (CREON) 18:47: 3D mouth 3 Hospi ta 36,000-114, 48 (three) l 000- times a 180,000 day. unit capsule,del ayed release(DR/ EC) riFAXimin 2021-04 Yes 550mg Q.5D Take 1 Metho di (XIFAXAN) 04-[address] 550 mg 18:47: (550 mg [...] Tue02/16/22 at 1200, Routine iopamidol 2021-04- No [id number] 74mL 74 mL, U nivers (ISOVUE 04-17 Intravenou ity o f 370-500 mL) 21:30: 21:30 s, ONCE, 1 [place] injection 00 :00 dose, On Medica l 74 mL Tue Branch 02/15/22 at 1530, Routine ondansetron 2021-04- No 4mg 4 mg, Slow Univers (ZOFRAN 04-17 IV Push, ity of (PF)) 21:00: 20:19 ONCE, 1 [place] injection 4 00 :00 dose, On Medi molly mg Tue Branch 02/15/22 at 1500, Routine ondansetron 2021-04 Yes [id number] 4mg Take 1 Univers 4 mg 1-07 tablet by ity of disintegrat 00:00: mouth [place] ing tablet 00 every 8 Medica l (eight) Branch hours as needed for Nausea and Vomiting (N/V). dicyclomine 2021-04 Yes [id number] 20mg Take 1 Univers 20 mg 1-07 tablet by ity of tablet 00:00: mouth 4 [place] 00 (four) Medical times Branch daily. loperamide 2021-04 Yes [id number] 2mg Take 1 U nivers 2 mg 1-07 capsule by ity of capsule 00:00: mouth [place] 00 every 4 Medical (four) Branch hours as needed for Diarrhea. Not to exceed 16mg daily. ondansetron 2021-04 Yes [id number] 4mg Take 1 Univers 4 mg 1-07 tablet by ity of disintegrat 00:00: mouth [place] ing tablet 00 every 8 Medica l (eight) Branch hours as needed for Nausea and Vomiting (N/V). dicyclomine 2021-04 Yes [id number] 20mg Take 1 Univers 20 mg 1-07 tablet by ity of tablet 00:00: mouth 4 [place] 00 (four) Medical times Branch daily. loperamide 2021-04 Yes [id number] 2mg Take 1 U nivers 2 mg 1-07 capsule by ity of capsule 00:00: mouth [place] 00 every 4 Medical (four) Branch hours as needed for Diarrhea. Not to exceed 16mg daily. ondansetron 2021-04 Yes [id number] 4mg Take 1 Univers 4 mg 1-07 tablet by ity of disintegrat 00:00: mouth [place] ing tablet 00 every 8 Medica l (eight) Branch hours as needed for Nausea and Vomiting (N/V). dicyclomine 2021-04 Yes [id number] 20mg Take 1 Univers 20 mg 1-07 tablet by ity of tablet 00:00: mouth 4 [place] 00 (four) Medical times Branch daily. loperamide 2021-04 Yes [id number] 2mg Take 1 U nivers 2 mg [...] 1g Q.25D Take 10 mL Methodi (CARAFATE) 0- ([address] 100 mg/mL 00:00: 05:59 total) by Ho spita suspension 00 :00 mouth 4 l (four) times a day before meals and nightly for 30 days. zinc 2021-04 No 1{capsu QD Take 1 Methodi sulfate 0- le} capsule by st (ZINCATE) 00:00: 05:59 [...] Q.5D Take 1 Met hodi one 0-27 -27 tablet (50 st (ALDACTONE) 00:00: 05:59 mg total) Hospita 50 MG 00 :00 by mouth 2 l tablet (two) times a day for 30 days. sucralfate 2021-04 No 1g Q.25D Take 10 mL Methodi (CARAFATE) 0-07 03-27 ([address] 100 mg/mL 00:00: 05:59 [...] a day for 30 days. pantoprazol 2021-04 40mg QD Take 1 Met hodi e 0-07 03- tablet (40 st (PROTONIX) 00:00: 05:59 mg total) H ospita 40 MG EC 00 :00 by mouth l tablet daily for 30 days. spironolact 2021-04 No 50mg Q.5D Take 1 Met hodi one 0-27 - tablet (50 st (ALDACTONE) 00:00: 05:59 mg [...] 1{capsu QD Take 1 Methodi sulfate 0-27 - le} capsule by st (ZINCATE) 00:00: 05:59 [...] 40mg QD Take 1 Met hodi e 0-03-07 tablet (40 st (PROTONIX) 00:00: 05:59 mg total) H ospita 40 MG EC 00 :00 by mouth l tablet daily for 30 days. spironolact 2021-04- No 50mg Q.5D Take 1 Met hodi one 0- tablet (50 st (ALDACTONE) 00:00: 05:59 mg total) Hospita 50 MG 00 :00 by mouth 2 l tablet (two) times a day for 30 days. sucralfate 2021-04- No 1g Q.25D Take 10 mL Methodi (CARAFATE) 0- ([address] 100 mg/mL 00:00: 05:59 total) by Ho spita suspension 00 :00 mouth 4 l (four) times a day before meals and nightly for 30 days. zinc 2021-04- No 1{capsu QD Take 1 Methodi sulfate 0-27 -27 le} capsule by st (ZINCATE) 00:00: 05:59 mouth Hospit a 50 mg zinc 00 :00 daily for l (220 mg) 30 days. capsule HYDROcodone 2021-04- No [id number] 1{tbl} Q4H Take 1 Methodi -acetaminop 0-27 11-[address] hen ([place]) 00:00: 05:59 mouth [facility] 10-325 mg 00 :00 every 4 l per tablet (four) hours as needed for severe pain for up to 10 days .acute pain. Max Daily Amount: 6 tablets HYDROcodone 2021-2021- No [id number] 1{tbl} Q4H Take 1 Methodi -acetaminop 0-27 11-[address] hen ([place]) 00:00: 05:59 mouth [facility] 10-325 mg 00 :00 every 4 l per tablet (four) hours as needed for severe pain for up to 10 days .acute pain. Max Daily Amount: 6 tablets HYDROcodone 2021-2021- No [id number] 1{tbl} Q4H Take 1 Methodi -acetaminop 0-27 11-[address] hen ([place]) 00:00: 05:59 mouth [facility] 10-325 mg 00 :00 every 4 l per tablet (four) hours as needed for severe pain for up to 10 days .acute pain. Max Daily Amount: 6 tablets HYDROcodone 2021-04- No [id number] 1{tbl} Q4H Take 1 Methodi -acetaminop 0-27 11-[address] hen ([place]) 00:00: 05:59 mouth [facility] 10-325 mg [...] 2 l (two) times a day. famotidine 2021- Yes 20mg Q.5D Take 1 Metho di (PEPCID) 20 0-12 tablet (20 st MG tablet 00:00: mg total) Hos alvaro 00 by mouth 2 l (two) times a day. famotidine 2021- Yes 20mg Q.5D Take 1 Metho di (PEPCID) 20 0-12 tablet (20 st MG tablet 00:00: mg total) Hos alvaro 00 by mouth 2 l (two) times a day. famotidine 1 Yes 20mg Q.5D Take 1 Metho di (PEPCID) 20 0-12 tablet (20 st MG tablet 00:00: mg total) Hos alvaro 00 by mouth 2 l (two) times a day. riFAXimin 2-0 Yes 550mg Q.5D Take 1 Metho di (XIFAXAN) 9-[address] 550 mg 19:11: (550 mg Hospita tablet 33 total) by l mouth 2 (two) times a day. riFAXimin 2-0 Yes 550mg Q.5D Take 1 Metho di (XIFAXAN) 9-[address] 550 mg 19:11: (550 mg Hospita tablet 33 total) by l mouth 2 (two) times a day. polyethylen 2021-0 2022- No 17g QD Take 17 g Methodi e glycol 9-27 10-[address] (MIRALAX) 00:00: 04:59 daily for Ho spita 17 gram 00 :00 30 days. l packet polyethylen 2021-0 2022- No 17g QD Take 17 g Methodi e glycol 9-27 10-[address] (MIRALAX) 00:00: 04:59 daily for Ho spita 17 gram 00 :00 30 days. l packet polyethylen 2-0 2022- No 17g QD Take 17 g Methodi e glycol 9-27 10-[address] (MIRALAX) 00:00: 04:59 daily for Ho spita 17 gram 00 :00 30 days. l packet polyethylen 2-0 2022- No 17g QD Take 17 g Methodi e glycol 9-27 10-[address] (MIRALAX) 00:00: 04:59 daily for Ho spita 17 gram 00 :00 30 days. l packet polyethylen 2022-0 2022- No 17g QD Take 17 g Methodi e glycol 9-27 10-[address] (MIRALAX) 00:00: 04:59 daily for Ho spita 17 gram 00 :00 30 days. l packet polyethylen 2022-0 2022- No 17g QD Take 17 g Methodi e glycol 9-27 10-[address] (MIRALAX) 00:00: 04:59 daily for Ho spita 17 gram 00 :00 30 days. l packet lactulose 2021-2021- No 20g Q.25D Take 30 mL Methodi 20 gram/30 -03 02-27 ([address] mL solution 00:00: 04:59 total) by Hospita 00 :00 mouth 4 l (four) times a day for 30 days. furosemide 2021-0 2021- No 40mg Q.5D Take 1 Meth dimitri (Lasix) 40 - 10- tablet (40 st mg tablet 00:00: 04:59 [...] Q.5D Take 1 Met hodi one -03 02- tablet (50 st (ALDACTONE) 00:00: 04:59 mg [...] No 1{capsu QD Take 1 Methodi sulfate 01-04- le} capsule by st (ZINCATE) 00:00: 04:59 mouth Hospit a 50 mg zinc 00 :00 daily for l (220 mg) 30 days. capsule lactulose 2021-0 2021- No 20g Q.25D Take 30 mL Methodi 20 gram/30 -03 02-27 ([address] mL solution 00:00: 04:59 [...] - 10- tablet (50 st (ALDACTONE) 00:00: 00:00 mg total) Hospita 50 MG 00 :00 by mouth 2 l tablet (two) times a day for 30 days. sucralfate 2021-0 2021- No 1g Q.25D Take 10 mL Methodi (CARAFATE) 01-04- ([address] 100 mg/mL 00:00: 00:00 [...] 01-04- ([address] mL solution 00:00: 00:00 [...] 01-04- ([address] 100 mg/mL 00:00: 00:00 [...] times a day. pancrelipas 2021- No 2{capsu Q.62317024 Take 2 Methodi e, 901-18 le} [id number] capsules st lipase-prot 00:00: 04:59 3D by mouth 3 Hospita ease-amylas 00 :00 (three) l e, (CREON) times a 6,000-19,00 day with 0 -30,000 meals for unit 30 days. capsule,del ayed release(DR/ EC) capsule methocarbam 0 2021- No 500mg Q.34873058 Take 1 Methodi oL 12-[id number] (ROBAXIN) 00:00: 04:59 3D (500 mg [facility] 500 MG 00 :00 total) by l tablet mouth 3 (three) times a day as needed (abdominal cramping) for up to 30 days. pancrelipas 2021- No 2{capsu Q.55809801 Take 2 Methodi e, 12-18 le} [id number] capsules st lipase-prot 00:00: 04:59 3D by mouth 3 Hospita ease-amylas 00 :00 (three) l e, (CREON) times a 6,000-19,00 day with 0 -30,000 meals for unit 30 days. capsule,del ayed release(DR/ EC) capsule methocarbam 2021- No 500mg Q.31182870 Take 1 Methodi oL 12-[id number] (ROBAXIN) 00:00: 04:59 3D (500 mg [facility] 500 MG 00 :00 total) by l tablet mouth 3 (three) times a day as needed (abdominal cramping) for up to 30 days. pancrelipas 2021- No 2{capsu Q.07338235 Take 2 Methodi e, 12-18 le} [id number] capsules st lipase-prot 00:00: 04:59 3D by mouth 3 Hospita ease-amylas 00 :00 (three) l e, (CREON) times a 6,000-19,00 day with 0 -30,000 meals for unit 30 days. capsule,del ayed release(DR/ EC) capsule methocarbam 0 2021- No 500mg Q.84558473 Take 1 Methodi oL 12-[id number] (ROBAXIN) 00:00: 04:59 3D (500 mg [facility] 500 MG 00 :00 total) by l tablet mouth 3 (three) times a day as needed (abdominal cramping) for up to 30 days. pancrelipas 2021- No 2{capsu Q.70370020 Take 2 Methodi e, 12-18 le} [id number] capsules st lipase-prot 00:00: 04:59 3D by mouth 3 [facility]ospita ease-amylas 00 :00 (three) l e, (CREON) times a 6,000-19,00 day with 0 -30,000 meals for unit 30 days. capsule,del ayed release(DR/ EC) capsule methocarbam 2021- No 500mg Q.44567781 Take 1 Methodi oL 12-[id number] (ROBAXIN) 00:00: 04:59 3D (500 mg [facility] 500 MG 00 :00 total) by l tablet mouth 3 (three) times a day as needed (abdominal cramping) for up to 30 days. pancrelipas 2021- No 2{capsu Q.[id number] Take 2 Methodi e, 12-18 le} [id number] capsules st lipase-prot 00:00: 04:59 3D by mouth 3 Hospita ease-amylas 00 :00 (three) l e, (CREON) times a 6,000-19,00 day with 0 -30,000 meals for unit 30 days. capsule,del ayed release(DR/ EC) capsule methocarbam 2021- No 500mg Q.24403848 Take 1 Methodi oL 12-[id number] (ROBAXIN) 00:00: 04:59 3D (500 mg [facility] 500 MG 00 :00 total) by l tablet mouth 3 (three) times a day as needed (abdominal cramping) for up to 30 days. pancrelipas 2021- No 2{capsu Q.[id number] Take 2 Methodi e, 12-18 le} [id number] capsules st lipase-prot 00:00: 04:59 3D by mouth 3 Hospita ease-amylas 00 :00 (three) l e, (CREON) times a 6,000-19,00 day with 0 -30,000 meals for unit 30 days. capsule,del ayed release(DR/ EC) capsule methocarbam 2021- No 500mg Q.58632082 Take 1 Methodi oL 12-[id number] (ROBAXIN) 00:00: 04:59 3D (500 mg [facility] 500 MG 00 :00 total) by l tablet mouth 3 (three) times a day as needed (abdominal cramping) for up to 30 days. pancrelipas 2021- No 2{capsu Q.68200649 Take 2 Methodi e, 12-18 le} [id number] capsules st lipase-prot 00:00: 04:59 3D by mouth 3 [facility]ospita ease-amylas 00 :00 (three) l e, (CREON) times a 6,000-19,00 day with 0 -30,000 meals for unit 30 days. capsule,del ayed release(DR/ EC) capsule methocarbam 2021- No 500mg Q.43094534 Take 1 Methodi oL 12-[id number] (ROBAXIN) 00:00: 04:59 3D (500 mg [facility] 500 MG 00 :00 total) by l tablet mouth 3 (three) times a day as needed (abdominal cramping) for up to 30 days. HYDROcodone 2021- No [id number] 1{tbl} Q6H Take 1 Methodi -acetaminop 12-[address] [place] ([place]) 00:00: 00:00 mouth [facility] 10-325 mg 00 :00 every 6 l per tablet (six) hours as needed for severe pain for up to 10 days .acute pain. Max Daily Amount: 4 tablets HYDROcodone 2021- No [id number] 1{tbl} Q6H Take 1 Methodi -acetaminop 12-[address] hen ([place]) 00:00: 00:00 mouth [facility] 10-325 mg 00 :00 every 6 l per tablet (six) hours as needed for severe pain for up to 10 days .acute pain. Max Daily Amount: 4 tablets HYDROcodone 2022-0 2021- No [id number] 1{tbl} Q6H Take 1 Methodi -acetaminop 12-[address] hen ([place]) 00:00: 00:00 mouth [facility] 10-325 mg 00 :00 every 6 l per tablet (six) hours as needed for severe pain for up to 10 days .acute pain. Max Daily Amount: 4 tablets HYDROcodone 2022-0 2021- [place] [id number] 1{tbl} Q6H Take 1 Methodi -acetaminop 12-[address] hen ([place]) 00:00: 00:00 mouth [facility] 10-325 mg 00 :00 every 6 l per tablet (six) hours as needed for severe pain for up to 10 days .acute pain. Max Daily Amount: 4 tablets HYDROcodone 2-0 2021- No [id number] 1{tbl} Q6H Take 1 Methodi -acetaminop 12-[address] hen ([place]) 00:00: 00:00 mouth [facility] 10-325 mg 00 :00 every 6 l per tablet (six) hours as needed for severe pain for up to 10 days .acute pain. Max Daily Amount: 4 tablets HYDROcodone 2-0 2021- No [id number] 1{tbl} Q6H Take 1 Methodi -acetaminop 12-[address] hen ([place]) 00:00: 00:00 mouth [facility] 10-325 mg 00 :00 every 6 l per tablet (six) hours as needed for severe pain for up to 10 days .acute pain. Max Daily Amount: 4 tablets HYDROcodone 2022-0 2021- [place] [id number] 1{tbl} Q6H Take 1 Methodi -acetaminop 12-[address] hen ([place]) 00:00: 04:59 mouth [facility] 10-325 mg 00 :00 every 6 l per tablet (six) hours as needed for severe pain for up to 10 days .acute pain. Max Daily Amount: 4 tablets riFAXimin 2022-0 Yes 550mg Q.5D Take 1 Metho di (XIFAXAN) 8-[address] 550 mg 14:06: (550 mg Hospita tablet 05 total) by l mouth 2 (two) times a day. pantoprazol 2021- No 40mg QD Take 1 Met hodi e 8- 08-25 tablet (40 st (PROTONIX) 14:06: 00:00 mg total) H ospita 40 MG EC 05 :00 by mouth l tablet daily. pantoprazol 2021- No 40mg QD Take 1 Met hodi e 8 08-25 tablet (40 st (PROTONIX) 14:06: 00:00 mg total) H ospita 40 MG EC 05 :00 by mouth l tablet daily. pantoprazol 2021- No 40mg QD Take 1 Met hodi e 8 08-25 tablet (40 st (PROTONIX) 14:06: 00:00 [...] 40mg QD Take 1 Met hodi e 8 08-25 tablet (40 st (PROTONIX) 14:06: 00:00 mg total) H ospita 40 MG EC 05 :00 by mouth l tablet daily. pantoprazol 2021-2021- No 40mg QD Take 1 Met hodi e 8 08-25 tablet (40 st (PROTONIX) 14:06: 00:00 mg total) H ospita 40 MG EC 05 :00 by mouth l tablet daily. pantoprazol 2021-2021- No 40mg QD Take 1 [...] No 1{capsu QD Take 1 Methodi sulfate 12-04- le} capsule by st (ZINCATE) 00:00: 04:59 [...] Q24H Take 30 mL M ethodi 10 gram/12-03 ([address] mL (15 mL) 00:00: [...] Q24H Take 30 mL M ethodi 10 gram/12-03 ([address] mL (15 mL) 00:00: [...] a day for 30 days. pantoprazol 2021-0 2022- No 40mg QD Take 1 Met [...] a day for 30 days. pantoprazol 2021-0 2022- No 40mg QD Take 1 Met hodi e 12-03- tablet (40 st (PROTONIX) 00:00: 00:00 mg total) H ospita 40 MG EC 00 :00 by mouth l tablet daily for 30 days. spironolact 2-0 2- No 50mg Q.5D Take 1 Met [...] a day for 30 days. pantoprazol 2021-0 2022- No 40mg QD Take 1 Met [facility]odi e 12-03- tablet (40 st (PROTONIX) 00:00: 00:00 mg total) H [facility]spita 40 MG EC 00 :00 by mouth l tablet daily for 30 days. spironolact 202-0 2022- No 50mg Q.5D Take 1 Met hodi one 12-03- tablet (50 st (ALDACTONE) 00:00: 00:00 mg total) Hospita 50 MG 00 :00 by mouth 2 l tablet (two) times a day for 30 days. sucralfate 2021-0 2022- No 1g Q.25D Take 10 mL [...] 50mg Q.5D Take 1 Met hodi one 8-25 09-26 tablet (50 st (ALDACTONE) 00:00: 00:00 mg [...] 1g Q.25D Take 10 mL [facility] (CARAFATE) 8-25 09-25 ([address] 100 mg/mL 00:00: 04:59 [...] nightly for 30 days. HYDROcodone 2021- No [id number] 1{tbl} Q6H Take 1 [facility] -acetaminop 8-25 -[address] [facility] ([place]) 00:00: 00:00 [facility] 10-325 mg 00 :00 every 6 l per tablet (six) hours as needed for severe pain for up to 10 days .acute pain. Max Daily Amount: 4 tablets HYDROcodone 2-0 2021- No [id number] 1{tbl} Q6H Take 1 [facility] -acetaminop 8-25 -[address] [facility] ([place]) 00:00: 00:00 mouth [facility] 10-325 mg 00 :00 every 6 l per tablet (six) hours as needed for severe pain for up to 10 days .acute pain. Max Daily Amount: 4 tablets HYDROcodone 2021-0 2021- No 1{tbl} Q6H Take 1 [facility]i -acetaminop 8-25 - tablet [facility] ([place]) 00:00: 00:00 mouth [facility] 10-325 mg 00 :00 every 6 l per tablet (six) hours as needed for severe pain for up to 10 days .acute pain. Max Daily Amount: 4 tablets HYDROcodone 2-0 2021- No [id number] 1{tbl} Q6H Take 1 [facility]i -acetaminop 8-25 - tablet [facility] ([place]) 00:00: 00:00 mouth [facility] 10-325 mg 00 :00 every 6 l per tablet (six) hours as needed for severe pain for up to 10 days .acute pain. Max Daily Amount: 4 tablets HYDROcodone 2-0 2021- No [id number] 1{tbl} Q6H Take 1 [facility]i -acetaminop 8-25 -[address] [facility] ([place]) 00:00: 00:00 mouth [facility] 10-325 mg 00 :00 every 6 l per tablet (six) hours as needed for severe pain for up to 10 days .acute pain. Max Daily Amount: 4 tablets HYDROcodone 2022-0 2021- No [id number] 1{tbl} Q6H Take 1 [facility] -acetaminop 8-25 -[address] [facility] ([place]) 00:00: 00:00 mouth [facility] 10-325 mg 00 :00 every 6 l per tablet (six) hours as needed for severe pain for up to 10 days .acute pain. Max Daily Amount: 4 tablets HYDROcodone No 1{tbl} Q6H Take 1 [facility] -acetaminop 8-25 09-[address] [facility] ([place]) 00:00: 00:00 mouth [facility] 10-325 mg 00 :00 every 6 l per tablet (six) hours as needed for severe pain for up to 10 days .acute pain. Max Daily Amount: 4 tablets HYDROcodone 2021- No 1{tbl} Q6H Take 1 [facility]i -acetaminop 8-25 09-[address] [facility] ([place]) 00:00: 04:59 mouth [facility] 10-325 mg 00 :00 every 6 l per tablet (six) hours as needed for severe pain for up to 10 days .acute pain. Max Daily Amount: 4 tablets pancrelipas 2021- No 1{capsu Q.[id number] Take 1 Methodi e, 8-18 08-18 le} [id number] capsule by st lipase-prot 20:41: 00:00 3D mouth 3 Ho spita ease-amylas 22 :00 (three) l e, (CREOND) times a 12,000-38,0 day with 00 -60,000 meals. unit capsule,del ayed release(DR/ EC) capsule pancrelipas 2021- No 1{capsu Q.[id number] Take 1 Methodi e, 8-18 08-18 le} [id number] capsule by st lipase-prot 20:41: 00:00 3D mouth 3 Ho spita ease-amylas 22 :00 (three) l e, (CREOND) times a 12,000-38,0 day with 00 -60,000 meals. unit capsule,del ayed release(DR/ EC) capsule pancrelipas 2021- No 1{capsu Q.[id number] Take 1 Methodi e, 8-18 08-18 le} [id number] capsule by st lipase-prot 20:41: 00:00 3D mouth 3 Ho spita ease-amylas 22 :00 (three) l e, (CREOND) times a 12,000-38,0 day with 00 -60,000 meals. unit capsule,del ayed release(DR/ EC) capsule pancrelipas 2021-2- No 1{capsu Q.[id number] Take 1 Methodi e, 8-18 08-18 le} [id number] capsule by st lipase-prot 20:41: 00:00 3D mouth 3 Ho spita ease-amylas 22 :00 (three) l e, (CREOND) times a 12,000-38,0 day with 00 -60,000 meals. unit capsule,del ayed release(DR/ EC) capsule pancrelipas 2021-2- No 1{capsu Q.[id number] Take 1 Methodi e, 8 08-18 le} [id number] capsule by st lipase-prot 20:41: 00:00 3D mouth 3 Ho sp[facility] ease-amylas 22 :00 (three) l e, (CREOND) times a 12,000-38,0 day with 00 -60,000 meals. unit capsule,del ayed release(DR/ EC) capsule pancrelipas 2021-2- No 1{capsu Q.[id number] Take 1 Methodi e, 8-18 08-18 le} [id number] capsule by st lipase-prot 20:41: 00:00 3D mouth 3 Ho spita ease-amylas 22 :00 (three) l e, (CREOND) times a 12,000-38,0 day with 00 -60,000 meals. unit capsule,del ayed release(DR/ EC) capsule pancrelipas 2021-2- No 1{capsu Q.[id number] Take 1 Methodi e, 8-18 08-18 le} [id number] capsule by [address] lipase-prot 20:41: 00:00 3D mouth 3 Ho spita ease-amylas 22 :00 (three) l e, (CREOND) times a 12,000-38,0 day with 00 -60,000 meals. unit capsule,del ayed release(DR/ EC) capsule pancrelipas 2- No 1{capsu Q.[id number] Take 1 Methodi e, 8-18 08-18 le} [id number] capsule by [address] lipase-prot 20:41: 00:00 3D [...] QD Take 20 mg [facility] (LASIX) 20 -26 10-[address] mg tablet 14:44: 00:00 daily. Hospi ta 06 :00 l spironolact 2022-0 2022- No 25mg QD Take 25 mg [facility] one 10-26-[address] (ALDACTONE) 14:44: 00:00 daily. Hos alvaro 25 MG 06 :00 l tablet furosemide 2021-0 2- No 20mg QD Take 20 mg [facility] (LASIX) 20 -26 10-[address] mg tablet 14:44: 00:00 daily. Hospi ta 06 :00 l spironolact 2021-0 202- No 25mg QD Take 25 mg [facility] one 10-26-[address] (ALDACTONE) 14:44: 00:00 daily. Hos alvaro 25 MG 06 :00 l tablet furosemide 2021-0 2021- No 20mg QD Take 20 mg [...] 06 :00 l spironolact 2022-0 2022- No 50mg Q.5D Take [...] times a day for 30 days. spironolact 2022-0 2022- No 50mg Q.5D Take 1 Met hodi one 7-18 08-25 tablet (50 st (ALDACTONE) 00:00: 00:00 mg total) Hospita 50 MG 00 :00 by mouth 2 l tablet (two) times a day for 30 days. furosemide 2022-0 2022- No 40mg Q.5D Take 1 Meth dimitri (Lasix) 40 7-18 08-25 tablet (40 st mg tablet 00:00: 00:00 mg total) Ho spita 00 :00 by mouth 2 l (two) times a day for 30 days. spironolact 2022-0 2022- No 50mg Q.5D Take 1 Met hodi one 7-18 08-25 tablet (50 st (ALDACTONE) 00:00: 00:00 mg total) Hospita 50 MG 00 :00 by mouth 2 l tablet (two) times a day for 30 days. furosemide 2-0 2022- No 40mg Q.5D Take 1 Meth dim[facility]ri (Lasix) 40 7-18 08-25 tablet (40 st mg tablet 00:00: 00:00 mg total) Ho spita 00 :00 by mouth 2 l (two) times a day for 30 days. spironolact 2022-0 2022- No 50mg Q.5D Take 1 Met hodi one 7-18 08-25 tablet (50 st (ALDACTONE) 00:00: 00:00 mg total) Hospita 50 MG 00 :00 by mouth 2 l tablet (two) times a day for 30 days. furosemide 2-0 2022- No 40mg Q.5D Take 1 Meth dim[facility]ri (Lasix) 40 7-18 08-25 tablet (40 st mg tablet 00:00: 00:00 mg total) Ho spita 00 :00 by mouth 2 l (two) times a day for 30 days. spironolact 2022-0 2022- No 50mg Q.5D Take 1 Met hodi one 7-18 08-25 tablet (50 st (ALDACTONE) 00:00: 00:00 mg total) Hospita 50 MG 00 :00 by mouth 2 l tablet (two) times a day for 30 days. furosemide 2022-0 2022- No 40mg Q.5D Take 1 Meth dim[facility]ri (Lasix) 40 7-18 08-25 tablet (40 st mg tablet 00:00: 00:00 mg total) Ho spita 00 :00 by mouth 2 l (two) times a day for 30 days. spironolact 2022-0 2022- No 50mg Q.5D Take 1 Met hodi one 7-18 08-25 tablet (50 st (ALDACTONE) 00:00: 00:00 mg total) Hospita 50 MG 00 :00 by mouth 2 l tablet (two) times a day for 30 days. furosemide 2-0 2022- No 40mg Q.5D Take 1 Meth dimitri (Lasix) 40 7-18 08-25 tablet (40 st mg tablet 00:00: 00:00 mg total) Ho spita 00 :00 by mouth 2 l (two) times a day for 30 days. spironolact 2022-0 2022- No 50mg Q.5D Take 1 Met hodi one 7-18 08-25 tablet (50 st (ALDACTONE) 00:00: 00:00 mg total) Hospita 50 MG 00 :00 by mouth 2 l tablet (two) times a day for 30 days. furosemide 2-0 2022- No 40mg Q.5D Take 1 Meth dim[facility]ri (Lasix) 40 7-18 08-25 tablet (40 st mg tablet 00:00: 00:00 mg total) Ho spita 00 :00 by mouth 2 l (two) times a day for 30 days. spironolact 2022-0 2022- No 50mg Q.5D Take 1 Met hodi one 7-18 08-25 tablet (50 st (ALDACTONE) 00:00: 00:00 mg total) Hospita 50 MG 00 :00 by mouth 2 l tablet (two) times a day for 30 days. furosemide 2-0 2022- No 40mg Q.5D Take 1 Meth dim[facility]ri (Lasix) 40 7-18 08-25 tablet (40 st mg tablet 00:00: 00:00 mg total) Ho spita 00 :00 by mouth 2 l (two) times a day for 30 days. acetaminoph 2021-0 2022- No 1{tbl} 1 tablet, Univers en-codeine 6- 06- Oral, ity of (TYLENOL 06:00: 05:02 ONCE, 1 [place] #3) 300-30 00 :00 dose, On Medic al mg tablet 1 Tue Branch tablet 09/29/21 at 0100, VERN naproxen No 500mg 500 mg, Univ ers (NAPROSYN) 09-29 Oral, ity of tablet 500 06:00: 04:58 ONCE, 1 [place] mg 00 :00 dose, On Medical Tue Branch 09/29/21 at 0100, Routine naproxen Yes [id number] 500mg Take 1 Univers (NAPROSYN) 6-20 9104 tablet by ity of 500 mg 00:00: mouth 2 [place] tablet 00 (two) Medical times Branch daily with meals. naproxen Yes [id number] 500mg Take 1 Univers (NAPROSYN) 6-20 9104 tablet by ity of 500 mg 00:00: mouth 2 [place] tablet 00 (two) Medical times Branch daily with meals. naproxen Yes [id number] 500mg Take 1 Univers (NAPROSYN) 6-20 9104 tablet by ity of 500 mg 00:00: mouth 2 [place] tablet 00 (two) Medical times Branch daily with meals. naproxen Yes [id number] 500mg Take 1 Univers (NAPROSYN) 6-20 9104 [...] 04/02/21 at 1445, VERN ondansetron 2020-04 Yes [id number] 4mg Take 1 [facility] 4 mg 2-23 tablet by ity of disintegrat 00:00: mouth [place] ing tablet 00 every 8 Medica l (eight) Branch hours as needed for Nausea and Vomiting (N/V). ondansetron 2020-04 Yes [id number] 4mg Take 1 Univers 4 mg 2-23 tablet by ity of disintegrat 00:00: mouth [place] ing tablet 00 every 8 Medica l (eight) Branch hours as needed for Nausea and Vomiting (N/V). ondansetron 2020-04 Yes [id number] 4mg Take 1 [facility] 4 mg 2-23 tablet by ity of disintegrat 00:00: mouth [place] ing tablet 00 every 8 Medica l (eight) Branch hours as needed for Nausea and Vomiting (N/V). ondansetron 2020-04 Yes [id number] 4mg Take 1 [facility] 4 mg 2-23 tablet by ity of disintegrat 00:00: mouth [place] ing tablet 00 every 8 Medica l (eight) Branch hours as needed for Nausea and Vomiting (N/V). ondansetron 2020-04 Yes [id number] 4mg Take 1 Univers 4 mg 2-23 tablet by ity of disintegrat 00:00: mouth [place] ing tablet 00 every 8 Medica l (eight) Branch hours as needed for Nausea and Vomiting (N/V). ondansetron 2020-04 Yes [id number] 4mg Take 1 Univers 4 mg 2-23 tablet by ity of disintegrat 00:00: mouth [place] ing tablet 00 every 8 Medica l (eight) Branch hours as needed for Nausea and Vomiting (N/V). ondansetron 2020-04 Yes [id number] 4mg Take 1 Univers 4 mg 2-23 [...] 00 :00 30 days. l packet polyethylen 2020-04 No 17g QD Take 17 [...] 100mg Q.5D Take 1 Metho di sodium 1 12-[address] ([facility]) 00:00: 05:59 (100 [...] times a day for 30 days. lactulose 0 202- No 20g Q24H Take 30 mL M ethodi 10 gram/15 7-18 08-25 ([address] mL (15 mL) 00:00: 00:00 total) by H ospita solution 00 :00 mouth l daily as needed (2 to 3 soft stools per day). lactulose 0 202- No 20g Q24H Take 30 mL M ethodi 10 gram/15 7-18 08-25 ([address] mL (15 mL) 00:00: 00:00 total) by H ospita solution 00 :00 mouth l daily as needed (2 to 3 soft stools per day). lactulose 2020-0 202- No 20g Q24H Take 30 mL M ethodi 10 gram/15 7-18 08-25 ([address] mL (15 mL) 00:00: 00:00 total) by H ospita solution 00 :00 mouth l daily as needed (2 to 3 soft stools per day). lactulose 0 2022- No 20g Q24H Take 30 mL M ethodi 10 gram/15 7-18 08-25 ([address] mL (15 mL) 00:00: 00:00 total) by H ospita solution 00 :00 mouth l daily as needed (2 to 3 soft stools per day). lactulose 0 2- No 20g Q24H Take 30 mL M ethodi 10 gram/15 7-18 08-25 ([address] mL (15 mL) 00:00: 00:00 total) by H ospita solution 00 :00 mouth l daily as needed (2 to 3 soft stools per day). lactulose 2020-0 2022- No 20g Q24H Take 30 mL M ethodi 10 gram/15 7-18 08-25 ([address] mL (15 mL) 00:00: 00:00 total) by H ospita solution 00 :00 mouth l daily as needed (2 to 3 soft stools per day). lactulose 2020-0 2022- No 20g Q24H Take 30 mL [...] soft stools per day). cholecalcif 2020- No [id number] Take 2 Univers nuno, 6-26 07-27 tablets by ity of vitamin D3, 00:00: 04:59 [place] 25 mcg 00 :00 daily for Medical (,000 30 days. Branch unit) tablet cyanocobala 2020- No [id number] 1000ug inject 1 Univers min 1,000 6-26 07-27 mL under ity o f mcg/mL 00:00: 04:59 the skin [place] injection 00 :00 every 24 Medica l (twenty-fo Branch ur) hours for 30 days. KCL 20 mEq 2020- No [id number] 20meq Take 1 Univers tablet 6-26 07-27 tablet by ity of 00:00: 04:59 mouth [place] 00 :00 daily for Medical 30 days. Branch cholecalcif 2020- No [id number] Take 2 Univers nuno, 6-26 07-27 tablets by ity of vitamin D3, 00:00: 04:59 mouth [place] 25 mcg 00 :00 daily for Medical (,000 30 days. Branch unit) tablet cyanocobala 2020- No [id number] 1000ug inject 1 [facility] min 1,000 6-26 07-27 mL under ity o f mcg/mL 00:00: 04:59 the skin [place] injection 00 :00 every 24 Medica l (twenty-fo Branch ur) hours for 30 days. KCL 20 mEq 2020- No [id number] 20meq Take 1 Univers tablet 6-26 07-27 tablet by ity of 00:00: 04:59 mouth [place] 00 :00 daily for Medical 30 days. Branch lactulose 2020-0 Yes 30mL Take 30 mL Un marline 10 gram/15 6-25 by mouth ity o f mL oral 18:10: daily. [place] solution 25 Medical Branch pantoprazol 0 Yes 40mg Take 40 mg Univers e 6-25 by mouth ity of (PROTONIX) 18:10: daily. [place] 40 mg EC 25 Medical tablet Branch lactulose 0 Yes 30mL Take 30 mL Un marline 10 gram/15 6-25 by mouth ity o f mL oral 18:10: daily. [place] solution 25 Medical Branch pantoprazol Yes 40mg [...] ity o f mL oral 13:10: daily. [place] solution 25 Medical Branch pantoprazol Yes 40mg Take 40 mg Univers e 6-25 by mouth ity of (PROTONIX) 13:10: daily. [place] 40 mg EC 25 Medical tablet Branch lactulose Yes 30mL Take 30 mL Un marline 10 gram/15 6-25 by mouth ity o f mL oral 13:10: daily. [place] solution 25 Medical Branch pantoprazol 0 Yes [...] N/V unresponsi ve to Ondansetro n proMETHazin 0 Yes [id number] 12.5mg Take 1 Univers e 12.5 mg 6-25 tablet by ity o f tablet 00:00: mouth [place] 00 every 6 Medical (six) Branch hours as needed for Nausea and Vomiting (N/V) or N/V unresponsi ve to Ondansetro n. proMETHazin Yes [id number] 12.5mg Take 1 Univers e 12.5 mg 6-25 tablet by ity o f tablet 00:00: mouth [place] 00 every 6 Medical (six) Branch hours as needed for Nausea and Vomiting (N/V) or N/V unresponsi ve to Ondansetro n. proMETHazin Yes [id number] 12.5mg Take 1 Univers e 12.5 mg 6-25 tablet by ity o f tablet 00:00: mouth [place] 00 every 6 Medical (six) Branch hours as needed for Nausea and Vomiting (N/V) or N/V unresponsi ve to Ondansetro n. proMETHazin Yes [id number] 12.5mg Take 1 Univers e 12.5 mg 6-25 tablet by ity o f tablet 00:00: mouth [place] 00 every 6 Medical (six) Branch hours as needed for Nausea and Vomiting (N/V) or N/V unresponsi ve to Ondansetro n. proMETHazin 0 Yes [id number] 12.5mg Take 1 Univers e 12.5 mg 6-25 tablet by ity o f tablet 00:00: mouth [place] 00 every 6 Medical (six) Branch hours as needed for Nausea and Vomiting (N/V) or N/V unresponsi ve to Ondansetro n. proMETHazin 0 Yes [id number] 12.5mg Take 1 Univers e 12.5 mg 6-25 tablet by ity o f tablet 00:00: mouth [place] 00 every 6 Medical (six) Branch hours as needed for Nausea and Vomiting (N/V) or N/V unresponsi ve to Ondansetro n. proMETHazin Yes [id number] 12.5mg Take 1 Univers e 12.5 mg 6-25 tablet by ity o f tablet 00:00: mouth [place] 00 every 6 Medical (six) Branch hours as needed for Nausea and Vomiting (N/V) or N/V unresponsi ve to Ondansetro n. proMETHazin Yes [id number] 12.5mg Take 1 Univers e 12.5 mg 6-25 tablet by ity o f tablet 00:00: mouth [place] 00 every 6 Medical (six) Branch hours as needed for Nausea and Vomiting (N/V) or N/V unresponsi ve to Ondansetro n. proMETHazin Yes [id number] 12.5mg Take 1 Univers e 12.5 mg 6-25 tablet by ity o f tablet 00:00: mouth [place] 00 every 6 Medical (six) Branch hours as needed for Nausea and Vomiting (N/V) or N/V unresponsi ve to Ondansetro n. proMETHazin Yes [id number] 12.5mg Take 1 Univers e 12.5 mg 6-25 tablet by ity o f tablet 00:00: mouth [place] 00 every 6 Medical (six) Branch hours as needed for Nausea and Vomiting (N/V) or N/V unresponsi ve to Ondansetro n. proMETHazin Yes [id number] 12.5mg Take 1 Univers e 12.5 mg 6-25 tablet by ity o f tablet 00:00: mouth [place] 00 every 6 Medical (six) Branch hours as needed for Nausea and Vomiting (N/V) or N/V unresponsi ve to Ondansetro n. proMETHazin Yes [id number] 12.5mg Take 1 Univers e 12.5 mg 6-25 tablet by ity o f tablet 00:00: mouth [place] 00 every 6 Medical (six) Branch hours as needed for Nausea and Vomiting (N/V) or N/V unresponsi ve to Ondansetro n. furosemide 2020-0 2020- No [id number] 40mg Take 1 [facility] 40 mg 6-25 07-26 tablet by ity of tablet 00:00: 04:59 mouth [place] 00 :00 every Medical morning Branch and evening for 30 days. lipase-prot 2020- No [id number] 2{capsu Take 2 Univers ease-amylas 6-25 07-26 le} capsules ity of e 00:00: 04:59 by mouth 3 [place] 12,000-38,0 00 :00 (three) Medic al 00 -60,000 times Branch unit daily with capsule meals for 30 days. lactobacill 2020- No [id number] .5mg Take 1 Univers us 6-25 07-26 tablet by ity of acidophilus 00:00: 04:59 mouth 2 [place] 00 :00 (two) Medical times Branch daily for 30 days. furosemide 2020- No [id number] 40mg Take 1 [facility] 40 mg 6-25 07-26 tablet by ity of tablet 00:00: 04:59 mouth [place] 00 :00 every Medical morning Branch and evening for 30 days. lipase-prot 2020- No [id number] 2{capsu Take 2 Univers ease-amylas 6-25 07-26 le} capsules ity of e 00:00: 04:59 by mouth 3 [place] 12,000-38,0 00 :00 (three) Medic al 00 -60,000 times Branch unit daily with capsule meals for 30 days. lactobacill 2020- No [id number] .5mg Take 1 Univers us 6-25 07-26 tablet by ity of acidophilus 00:00: 04:59 mouth 2 [place] 00 :00 (two) Medical times Branch daily for 30 days. vancomycin 2020- No [id number] 125mg Take 1 Univers 125 mg 6-25 07-06 capsule by ity of capsule 00:00: 04:59 mouth 4 [place] 00 :00 (four) Medical times Branch daily for 10 days. vancomycin 2020- No [id number] 125mg Take 1 Univers 125 mg 6-25 [...] Indication s: acute pain cephALEXin 2020- No [id number] 500mg Take 1 [facility] 500 mg 10-03 capsule by ity of capsule 00:00: 04:59 mouth 4 [place] 00 :00 (four) Medical times Branch daily for 5 days. cephALEXin 2020- No [id number] 500mg Take 1 Univers 500 mg 10-03 [...] First dose Medi molly NaCl 0.9% on [facility] (NS) 250 mL 09/30/20 at infusion 1630, For 4 doses vancomycin Yes 125mg 125 mg, Uni vers (VANCOCIN) 09-30 Oral, QID, ity of capsule 125 21:15: First dose [place] mg 00 on [facility] 09/30/20 at Branch 1615, Until [...] at 1615, Routine cholecalcif Yes 2000U 2,000 [facility] ers nuno 09-29 Units, ity [...] ONCE, 1 Medica l NaCl 0.9% dose, [facility] Branc h (NS) 100 mL 09/29/20 [...] injection 4 17 Starting Medi molly mg [facility] Branch 09/29/20 at 0142, Until Discontinu ed, Routine, Nausea and Vomiting (N/V) iopamidol 2020- No [id number] 100mL 100 mL, Univers (ISOVUE 09-29 Intravenou [...] Spirit 00:00: 00:00 - [facility] 00 :00 [facility] flu vaccine 2019- No .5mL 0.5 mL, [...] for Pain (scale 4-6). acetaminoph 2020-0 Yes [id number] 1{tbl} Take 1 Univers en-codeine 5-02 tablet by ity of 300-30 mg 00:00: mouth [place] tablet 00 every 4 Medical (four) Branch hours as needed for Pain (scale 4-6). lactulose 2020-0 2020- No [id number] 30mL Take 30 mL Univers 10 gram/15 08-10- by mouth 2 it y of mL oral 00:00: 04:59 (two) [place] solution 00 :00 times Medical daily for Branch 30 days. pantoprazol 2019-0 2020- No [id number] 40mg Take 1 Univers e 40 mg EC -05 17- tablet by ity of tablet 00:00: 04:59 mouth [place] 00 :00 daily for Medical 30 days. Branch lactulose 2019-0 2020- No [id number] 30mL Take 30 mL Univers 10 gram/15 08-10 by mouth 2 it y of mL oral 00:00: 04:59 (two) [place] solution 00 :00 times Medical daily for Branch 30 days. pantoprazol 2019-0 2020- No [id number] 40mg Take 1 Univers e 40 mg EC -09-10 tablet by ity of tablet 00:00: 04:59 mouth [place] 00 :00 daily for Medical 30 days. Branch propranolol 2019-0 2020- No [id number] 10mg Take 1 Univers 10 mg -05 16- tablet by ity of tablet 00:00: 00:00 [...] Branch 08/10/19 at 0600, Routine D5W-LR IV 0 Yes 1000mL at 100 Univ ers infusion [...] Medical 13 (two) Center times daily. ibuprofen 2017- 2020- No 600mg Take 1 Univ ers 600 mg 6-18 05-02 tablet by ity of tablet 00:00: 00:00 mouth [place] 00 :00 every 6 Medical (six) Branch hours as needed for Pain (scale 4-6). cyclobenzap 2017- 2020- No 10mg Take 1 Uni vers rine 10 mg 6-18 05-02 tablet by ity of [...] Sodium e Sodium Singh defined Spir it [facility] Acetaminoph Acetaminoph Yes Gm not Common en-Codeine en-Codeine Singh defined [facility] #3 #3 [facility] Oseltamivir Oseltamivir Yes Gm not Common Phosphate Phosphate Singh defined Sp cleopatra [facility] Levofloxaci Levofloxaci Yes Gm not Common n n Singh defined [facility] Xifaxan Xifaxan Yes Gm not Common Singh defined [facility] Lactulose Lactulose Yes Gm not Co mmon Singh defined [facility] Albuterol Albuterol Yes Gm not Co mmon Sulfate HFA Sulfate HFA Singh defined [facility] Azithromyci Azithromyci Yes Gm not Common n n Singh defined [facility] Amoxicillin Amoxicillin Yes Gm not Common -Pot -Pot Singh defined [facility] Clavulanate Clavulanate [facility] Immunizations Ordered Immunization Filled Immunization Date Status [...] 2020-10-03 Completed University o f Polysaccharide, 00:00:00 [place] Med ical PPSV23 (PNEUMOVAX) Branch Pneumococcal 2020-10-03 Completed University o f Polysaccharide, 00:00:00 [place] Med ical PPSV23 (PNEUMOVAX) Branch Pneumococcal 2020-10-03 Completed University o f Polysaccharide, 00:00:00 [place] Med ical PPSV23 (PNEUMOVAX) Branch Pneumococcal 2020-10-03 Completed University o f Polysaccharide, 00:00:00 [place] Med ical PPSV23 (PNEUMOVAX) Branch Pneumococcal 2020-10-03 Completed University o f Polysaccharide, 00:00:00 [place] Med ical PPSV23 (PNEUMOVAX) Branch Pneumococcal 2020-10-03 Completed [facility] Polysaccharide 00:00:00 [facility] Pneumococcal 2020-10-03 Completed [facility] Polysaccharide 00:00:00 Hospital Pneumococcal 2020-10-03 Completed [facility] Polysaccharide 00:00:00 Hospital Pneumococcal 2020-10-03 Completed [facility] Polysaccharide 00:00:00 [facility] SARS-COV-2 COVID-19 2020-08-08 Completed Unive rsity of MODERNA VACCINE 00:00:00 [facility] Branch SARS-COV-2 COVID-19 2020-08-08 Completed Unive rsity of MODERNA VACCINE 00:00:00 [facility] Branch SARS-COV-2 COVID-19 2020-08-08 Completed Unive rsity of MODERNA VACCINE 00:00:00 [facility] SARS-COV-2 COVID-19 2020-08-08 Completed Unive rsity of MODERNA VACCINE 00:00:00 [facility] Branch SARS-COV-2 COVID-19 2020-08-08 Completed Unive rsity of MODERNA VACCINE 00:00:00 [facility] Branch SARS-COV-2 COVID-19 2020-08-08 Completed Unive rsity of MODERNA VACCINE 00:00:00 [facility] Branch SARS-COV-2 COVID-19 2020-08-08 Completed Unive rsity of MODERNA VACCINE 00:00:00 [facility] SARS-COV-2 COVID-19 2020-08-08 Completed Unive rsity of MODERNA VACCINE 00:00:00 [facility] SARS-COV-2 COVID-19 2020-08-08 Completed Unive rsity of MODERNA VACCINE 00:00:00 [place] [facility] ical Branch SARS-COV-2 COVID-19 2020-08-08 Completed Unive rsity of MODERNA VACCINE 00:00:00 [place] [facility] ical Branch SARS-COV-2 COVID-19 2020-08-08 Completed Unive rsity of MODERNA 12+ YRS 00:00:00 [facility] ical VACCINE Branch SARS-COV-2 COVID-19 2020-08-08 Completed Unive rsity of MODERNA 12+ YRS 00:00:00 [facility] ical VACCINE Branch SARS-COV-2 COVID-19 2020-08-08 Completed Unive rsity of MODERNA 12+ YRS 00:00:00 Formerly [facility] ical VACCINE Branch MODERNA COVID-19 MRNA 2020-08-08 Completed Met [facility]odist VACCINATION 00:00:00 Hospital MODERNA COVID-19 MRNA 2020-08-08 Completed [facility] VACCINATION 00:00:00 Hospital MODERNA COVID-19 MRNA 2020-08-08 Completed [facility] VACCINATION 00:00:00 Hospital MODERNA COVID-19 MRNA 2020-08-08 Completed Met [facility]odist VACCINATION 00:00:00 Hospital SARS-COV-2 COVID-19 2020-07-11 Completed Unive rsity of MODERNA VACCINE 00:00:00 [facility] ical Branch SARS-COV-2 COVID-19 2020-07-11 Completed Unive rsity of MODERNA VACCINE 00:00:00 [facility] ical Branch SARS-COV-2 COVID-19 2020-07-11 Completed Unive rsity of MODERNA VACCINE 00:00:00 [facility] ical Branch SARS-COV-2 COVID-19 2020-07-11 Completed Unive rsity of MODERNA VACCINE 00:00:00 [facility] ical Branch SARS-COV-2 COVID-19 2020-07-11 Completed Unive rsity of MODERNA VACCINE 00:00:00 [facility] ical Branch SARS-COV-2 COVID-19 2020-07-11 Completed Unive rsity of MODERNA VACCINE 00:00:00 [facility] ical Branch SARS-COV-2 COVID-19 2020-07-11 Completed Unive rsity of [facility] VACCINE 00:00:00 [place] [facility] SARS-COV-2 COVID-19 2020-07-11 Completed Unive rsity of MODERNA VACCINE 00:00:00 [facility] Branch SARS-COV-2 COVID-19 2020-07-11 Completed Unive rsity of MODERNA VACCINE 00:00:00 [facility] Branch SARS-COV-2 COVID-19 2020-07-11 Completed Unive rsity of MODERNA VACCINE 00:00:00 [facility] Branch SARS-COV-2 COVID-19 2020-07-11 Completed Unive rsity of MODERNA 12+ YRS 00:00:00 [facility] VACCINE Branch SARS-COV-2 COVID-19 2020-07-11 Completed Unive rsity of MODERNA 12+ YRS 00:00:00 [facility] VACCINE Branch SARS-COV-2 COVID-19 2020-07-11 Completed Unive rsity of MODERNA 12+ YRS 00:00:00 [facility] VACCINE Branch MODERNA COVID-19 MRNA 2020-07-11 Completed Met hodist VACCINATION 00:00:00 [facility] MODERNA COVID-19 MRNA 2020-07-11 Completed [facility]odist VACCINATION 00:00:00 Hospital MODERNA COVID-19 MRNA 2020-07-11 Completed [facility] VACCINATION 00:00:00 Hospital MODERNA COVID-19 MRNA 2020-07-11 Completed Met hodist VACCINATION 00:00:00 [facility] Influenza Virus 2019-08-11 Completed [...] MO Branch FLUZONE QUAD PF 2019-08-11 Completed Y[facility]ism 00:00:00 Hospital FLUZONE QUAD PF 2019-08-11 Completed [facility] 00:00:00 Hospital FLUZONE QUAD PF 2019-08-11 Completed [facility] 00:00:00 Hospital FLUZONE QUAD PF 2019-08-11 Completed [facility] 00:00:00 Hospital Influenza (IM) 2018-05-29 Completed [facility]ism Preservative Free 00:00:00 Hospita l Influenza (IM) 2018-05-29 Completed [facility]ism Preservative Free 00:00:00 Hospita l Influenza (IM) 2018-05-29 Completed [facility]ism Preservative Free 00:00:00 Hospita l Influenza (IM) 2018-05-29 Completed [facility]ism Preservative Free 00:00:00 Hospita l Influenza (IM) 2017-01-21 Completed [facility]ism Preservative Free 00:00:00 Hospita l Influenza (IM) 2017-01-21 Completed [facility]ism Preservative Free 00:00:00 Hospita l Influenza (IM) 2017-01-21 Completed [facility]ism Preservative Free 00:00:00 Hospita l Influenza (IM) 2017-01-21 Completed [facility]ism Preservative Free 00:00:00 Hospita l Influenza (IM) 2016-02-28 Completed [facility]ism Preservative Free 00:00:00 Hospita l Influenza (IM) 2016-02-28 Completed [facility]ism Preservative Free 00:00:00 Hospita l Influenza (IM) 2016-02-28 Completed [facility]ism Preservative Free 00:00:00 Hospita l Influenza (IM) 2016-02-28 Completed [facility]ism Preservative Free 00:00:00 Hospita l Vital Signs Vital Name Observation Time Observation Value Comments Source Systolic blood 2022-04-16 04:00:00 152 mm[Hg] Univer sity of pressure [facility] Diastolic blood 2022-04-16 04:00:00 83 mm[Hg] Unive rsity of [facility] Heart rate 2022-04-16 04:00:00 86 /min [facility] Respiratory rate 2022-04-16 04:00:00 18 /min [facility] Oxygen saturation in 2022-04-16 04:00:00 97 /min [facility] Arterial blood by [facility] Pulse oximetry [place] Body temperature 2022-04-16 02:17:00 37 Sandee [facility] Body height 2022-04-16 02:17:00 162.6 cm [facility] Body weight 2022-04-16 02:17:00 120.203 kg [facility] BMI 2022-04-16 02:17:00 45.49 kg/m2 [facility] Systolic blood 2022-04-10 03:00:00 113 mm[Hg] Univer sity of [facility] Diastolic blood 2022-04-10 03:00:00 71 mm[Hg] Unive rsity of pressure [facility] Heart rate 2022-04-10 03:00:00 84 /min [facility] Respiratory rate 2022-04-10 03:00:00 17 /min [facility] in 2022-04-10 03:00:00 98 /min [facility] Arterial blood by [place] [facility] Pulse oximetry Branch Body temperature 2022-04-10 01:36:00 37.11 Sandee Univ ers[facility] Body height 2022-04-10 01:36:00 162.6 cm [facility] Body weight 2022-04-10 01:36:00 120.249 kg [facility] BMI 2022-04-10 01:36:00 45.50 kg/m2 [facility] Systolic blood 2022-02-15 21:55:49 128 mm[Hg] Univer sity of pressure [facility] Diastolic blood 2022-02-15 21:55:49 79 mm[Hg] Unive rsity of pressure [facility] Heart rate 2022-02-15 21:55:49 75 /min [facility] Respiratory rate 2022-02-15 21:55:49 19 /min Univ ersity of [facility] Oxygen saturation in 2022-02-15 21:55:49 99 /min University of Arterial blood by [facility] Pulse oximetry Branch Body temperature 2022-02-15 19:43:00 35.89 Sandee Univ ersity [facility] Body height 2022-02-15 19:43:00 162.6 cm [facility] Body weight 2022-02-15 19:43:00 113.399 kg [facility] BMI 2022-02-15 19:43:00 42.91 kg/m2 [facility] Systolic blood 2021-09-29 03:00:00 126 mm[Hg] Univer sity of pressure [facility] Diastolic blood 2021-09-29 03:00:00 57 mm[Hg] Unive rsity of pressure [facility] Heart rate 2021-09-29 03:00:00 78 /min [facility] Body temperature 2021-09-29 03:00:00 37.28 Sandee Univ ers[facility] Respiratory rate 2021-09-29 03:00:00 16 /min Univ ers[facility] Body height 2021-09-29 03:00:00 162.6 cm [facility] Body weight 2021-09-29 03:00:00 117.935 kg [facility] BMI 2021-09-29 03:00:00 44.63 kg/m2 [facility] Oxygen saturation in 2021-09-29 03:00:00 97 /min University of Arterial blood by [facility] Pulse oximetry Branch Systolic blood 2021-04-02 18:55:00 138 mm[Hg] Univer sity of pressure [facility] Diastolic blood 2021-04-02 18:55:00 104 mm[Hg] Unive rsity of pressure [facility] Heart rate 2021-04-02 18:55:00 74 /min [facility] Body temperature 2021-04-02 18:55:00 36.78 Sandee Univ [facility] Respiratory rate 2021-04-02 18:55:00 18 /min Univ ers[facility] Body weight 2021-04-02 18:55:00 122.471 kg [facility] BMI 2021-04-02 18:55:00 46.35 kg/m2 [facility] Oxygen saturation in 2021-04-02 18:55:00 97 /min University of Arterial blood by [facility] Pulse oximetry Branch Systolic blood 2020-10-03 17:23:00 132 mm[Hg] Univer sity of pressure [facility] Diastolic blood 2020-10-03 17:23:00 56 mm[Hg] Unive rsity of pressure [facility] Heart rate 2020-10-03 17:23:00 88 /min [facility] Body temperature 2020-10-03 17:23:00 36.94 Sandee Univ [facility] Respiratory rate 2020-10-03 17:23:00 18 /min Univ ers[facility] Oxygen saturation in 2020-10-03 17:23:00 94 /min University of Arterial blood by [facility] Pulse oximetry Branch Body weight 2020-09-30 08:11:00 121.473 kg [facility] BMI 2020-09-30 08:11:00 47.44 kg/m2 [facility] Body height 2020-09-29 03:33:00 160 cm [facility] Diastolic blood 2019-08-11 20:04:00 44 mm[Hg] Unive rsity of pressure [facility] Heart rate 2019-08-11 20:04:00 70 /min [facility] [place] [facility] [place] Body temperature 2019-08-11 20:04:00 36.61 Sandee Univ ersity of [facility] Branch Respiratory rate 2019-08-11 20:04:00 18 /min Univ ersity of [facility] Oxygen saturation in 2019-08-11 20:04:00 91 /min University of Arterial blood by [facility] Pulse oximetry Branch Systolic blood 2019-08-11 20:04:00 107 mm[Hg] Univer sity of pressure [facility] Body height 2019-08-10 08:01:00 162.6 cm [facility] [place] [facility] [place] Body weight 2019-08-10 08:01:00 119.296 kg [facility] BMI 2019-08-10 08:01:00 45.14 kg/m2 [facility] Diastolic blood 2019-08-11 20:04:00 44 mm[Hg] Unive rsity of pressure [facility] Branch Heart rate 2019-08-11 20:04:00 70 /min [facility] Body temperature 2019-08-11 20:04:00 36.61 Sandee Univ ersity of [facility] Branch Respiratory rate 2019-08-11 20:04:00 18 /min Univ ersity of [facility] Oxygen saturation in 2019-08-11 20:04:00 91 /min University of Arterial blood by [facility] Pulse oximetry Branch Systolic blood 2019-08-11 20:04:00 107 mm[Hg] Univer sity of pressure [facility] Body height 2019-08-10 08:01:00 162.6 cm [facility] Body weight 2019-08-10 08:01:00 119.296 kg [facility] BMI 2019-08-10 08:01:00 45.14 kg/m2 [facility] Systolic blood 2022-02-27 23:42:53 122 mm[Hg] Method [facility] pressure Diastolic blood 2022-02-27 23:42:53 53 mm[Hg] [facility] pressure Heart rate 2022-02-27 23:42:53 73 /[facility] Body temperature 2022-02-27 23:42:53 37.06 Sandee [facility] Respiratory rate 2022-02-27 23:42:53 18 /min [facility] Oxygen saturation in 2022-02-27 23:42:53 98 /min [facility] Arterial blood by Pulse oximetry Body weight 2022-02-26 03:00:22 118.162 kg [facility] BMI 2022-02-26 03:00:22 44.71 kg/m2 [facility] Body height 2022-02-26 02:56:00 162.6 cm [facility] Systolic blood 2022-01-06 21:13:50 124 mm[Hg] Method [facility] pressure Diastolic blood 2022-01-06 21:13:50 58 mm[Hg] [facility] pressure Heart rate 2022-01-06 21:13:50 69 /min [facility] Body temperature 2022-01-06 21:13:50 35.89 Sandee [facility] Respiratory rate 2022-01-06 21:13:50 18 /min [facility] Oxygen saturation in 2022-01-06 21:13:50 95 /min [facility] Arterial blood by Pulse oximetry Body weight 2022-01-06 10:25:28 109.952 kg [facility] BMI 2022-01-06 10:25:28 41.61 kg/m2 [facility] Body height 2022-01-02 04:15:00 162.6 cm [facility] Systolic blood 2021-12-18 20:25:00 122 mm[Hg] [facility] pressure Diastolic blood 2021-12-18 20:25:00 57 mm[Hg] [facility] pressure Heart rate 2021-12-18 20:25:00 71 /min [facility] Body temperature 2021-12-18 20:25:00 36.94 Sandee [facility] Respiratory rate 2021-12-18 20:25:00 19 /min [facility] Oxygen saturation in 2021-12-18 20:25:00 94 /min [facility] Arterial blood by Pulse oximetry Body weight 2021-12-18 10:58:00 112.1 kg [facility] BMI 2021-12-18 10:58:00 42.42 kg/m2 [facility] Systolic blood 2021-12-03 12:21:16 129 mm[Hg] [facility] pressure Diastolic blood 2021-12-03 12:21:16 58 mm[Hg] [facility] pressure Heart rate 2021-12-03 12:21:16 68 /min [facility] Body temperature 2021-12-03 12:21:16 36.11 Sandee [facility] Respiratory rate 2021-12-03 12:21:16 20 /min [facility] Oxygen saturation in 2021-12-03 12:21:16 95 /min [facility] Arterial blood by Pulse oximetry Body weight 2021-12-03 11:09:00 112.6 kg [facility] BMI 2021-12-03 11:09:00 42.61 kg/m2 [facility] Body height 2021-10-21 16:02:36 162.6 cm [facility] Procedures Procedure Date / Time Performing Source Performed Clinician EKG-12 LEAD 2022-04-16 Estephania Flood Mckenzie of 04:17:16 [facility] XR CHEST 2 VW 2022-04-16 Estephania Flood Mckenzie of 03:21:40 [facility] TROPONIN I 2022-04-16 Estephania Flood Mckenzie of 02:46:00 [facility] HEPATIC FUNCTION PANEL (69408) 2022-04-16 Estephania Flood niversity of (ALB,T.PRO,BILI 02:46:00 [facility],BU/BC,ALT,AST,ALK PHOS) [place] BASIC METABOLIC PANEL (NA, K, CL, 2022-04-16 Estephania Flood of CO2, GLUCOSE, BUN, CREATININE, CA) 02:46:00 [facility] CBC WITH DIFF 2022-04-16 Estephania Flood Mckenzie of 02:46:00 [facility] URINALYSIS 2022-04-16 Estephania Flood Mckenzie of 02:46:00 [facility] RAPID STREP SCREEN FOR GROUP A 2022-04-16 Estephania Flood niversity of 02:46:00 [facility] RAPID INFLUENZA A/B 2022-04-16 Estephania Flood o f 02:46:00 [facility] N-TERMINAL PRO-BNP 2022-04-16 [facility] 02:46:00 [facility] COVID-19 (ID NOW RAPID TESTING) 2022-04-16 [facility] of 02:46:00 [facility] NOTICE OF PRIVACY PRACTICES 2022-04-16 Doctor Unasslis, U niversity of 02:08:07 Hissop [facility] CONSENT/REFUSAL FOR DIAGNOSIS AND 2022-04-16 [facility] 02:07:40 Hissop [facility] CREATINE KINASE 2022-04-10 Emily Salgado Mckenzie of 02:05:00 [facility] MAGNESIUM 2022-04-10 Emily Salgado [facility] 02:05:00 [facility] AMMONIA, PLASMA 2022-04-10 Emily Salgado [facility] 02:05:00 [facility] COMP. METABOLIC PANEL (93046) 2022-04-10 Emily Salgado U niversity of 02:05:00 [facility] CBC WITH DIFF 2022-04-10 Eimly Salgado [facility] 02:05:00 [facility] PROTHROMBIN TIME / INR 2022-04-10 Emily Salgado Universi ty of 02:05:00 [facility] URINALYSIS 2022-04-10 Emily Salgado [facility] 02:05:00 [facility] CONSENT/REFUSAL FOR DIAGNOSIS AND 2022-04-10 [facility] 01:08:41 Hissop [facility] XR SHOULDER 2+ VW LEFT 2022-02-27 Viviana Ward 15:01:00 Hospital CBC WITH PLATELET AND DIFFERENTIAL 2022-02-27 Leah Sandoval 10:39:00 [facility] PROTHROMBIN TIME WITH INR 2022-02-27 Jeremy Sandoval ist 10:39:00 [facility] BASIC METABOLIC PANEL 2022-02-27 Jeremy Sandoval 10:39:00 [facility] HEPATIC FUNCTION PANEL 2022-02-27 Jeremy Sandoval 10:39:00 [facility] PHOSPHORUS LEVEL 2022-02-27 Jeremy Sandoval 10:39:00 [facility] MAGNESIUM LEVEL 2022-02-27 Jeremy Sandoval 10:39:00 [facility] ESTIMATED GFR 2022-02-27 Jeremy Sandoval 10:39:00 [facility] SMEAR REVIEW 2022-02-27 Jeremy Sandoval 10:39:00 [facility] POC GLUCOSE 2022-02-27 Jeremy Sandoval 09:38:00 [facility] CBC WITH PLATELET AND DIFFERENTIAL 2022-02-26 Leah Sandoval 11:53:00 [facility] PROTHROMBIN TIME WITH INR 2022-02-26 Jeremy Sandoval ist 11:53:00 [facility] BASIC METABOLIC PANEL 2022-02-26 Jeremy Sandoval [facility] 11:53:00 [facility] HEPATIC FUNCTION PANEL 2022-02-26 Jeremy Sandoval 11:53:00 [facility] PHOSPHORUS LEVEL 2022-02-26 Jeremy Sandoval 11:53:00 [facility] MAGNESIUM LEVEL 2022-02-26 Jeremy Sandoval 11:53:00 [facility] HEMOGLOBIN A1C 2022-02-26 Jeremy Sandoval 11:53:00 [facility] ESTIMATED GFR 2022-02-26 Jeremy Sandoval [facility] 11:53:00 [facility] SMEAR REVIEW 2022-02-26 Jeremy Sandoval 11:53:00 [facility] AMYLASE LEVEL 2022-02-26 Jeremy Sandoval 11:53:00 [facility] GASTROINTESTINAL PANEL 2022-02-26 Myra Garcia ist 03:50:00 [facility] BLOOD CULTURE, AEROBIC & ANAEROBIC 2022-02-25 Laci Garcia 23:25:00 [facility] COVID-19 QUALITATIVE RT-PCR 2022-02-25 Stevo Hoskins odist 23:24:00 [facility] BLOOD CULTURE, AEROBIC & ANAEROBIC 2022-02-25 Laci Garcia 23:10:00 [facility] US ABDOMINAL LIMITED 2022-02-25 Myra Garcia t 21:58:[address] [facility] CT ABDOMEN PELVIS W CONTRAST 2022-02-25 Stevo Hoskins hodist 21:28:38 [facility] ECG ED PRELIMINARY INTERPRETATION 2022-02-25 Stevo Hoskins 20:37:40 [facility] PROTHROMBIN TIME WITH INR 2022-02-25 Rehrer, Raeford Rosemary ist 20:18:00 [facility] PARTIAL THROMBOPLASTIN TIME (PTT) 2022-02-25 Rehrer, Raeford Y[facility]ism 20:18:00 [facility] CBC WITH PLATELET AND DIFFERENTIAL 2022-02-25 Rehrer, Raeford Y[facility]ism 19:55:00 [facility] COMPREHENSIVE METABOLIC PANEL 2022-02-25 Rehrer, Stevo Me thodist 19:55:00 [facility] LIPASE LEVEL 2022-02-25 Rehrer, Raeford Y[facility]ism 19:55:00 [facility] ESTIMATED GFR 2022-02-25 Rehrer, Raeford [facility]ism 19:55:00 [facility] ECG 12-LEAD 2022-02-25 Rehrer, Raeford Yaz[facility]ism 18:42:27 [facility] RAPID INFLUENZA A/B 2022-02-15 Singer [facility] o f 21:31:00 [facility] COVID-19 (ID NOW RAPID TESTING) 2022-02-15 Ayers, [facility] of 21:31:00 [facility] URINALYSIS 2022-02-15 [facility] of 21:04:00 [facility] CT ABDOMEN PELVIS W CONTRAST 2022-02-15 Singer Florian January versity of 20:35:57 [facility] LIPASE 2022-02-15 [facility] of 20:15:00 [facility] COMP. METABOLIC PANEL (37145) 2022-02-15 [facility] 20:15:00 [facility] CBC WITH DIFF [facility]02-[facility]00 [facility] CONSENT/REFUSAL FOR DIAGNOSIS AND 2022-02-15 [facility] 19:31:00 Hissop [facility] PROTHROMBIN TIME WITH INR 2022-02-04 Carolin Sanches ist 11:20:00 Hospital PHOSPHORUS LEVEL 2022-02-04 Caroiln Sanches 11:20:00 Hospital MAGNESIUM LEVEL 2022-02-04 Carolin Sanchesist 11:20:00 Hospital BASIC METABOLIC PANEL 2022-02-04 Sanches, Coe M. Yazidism 11:20:00 Hospital HEPATIC FUNCTION PANEL 2022-02-04 SanchesCarolin french Yazidism 11:20:00 Hospital CBC HEMOGRAM 2022-02-04 Carolin Sanches Y[facility]ism 11:20:00 Hospital ESTIMATED GFR 2022-02-04 SanchesCarolin Y[facility]ism 11:20:00 Hospital SMEAR REVIEW 2022-02-04 Carolin Sanches [facility]ism 11:20:00 [facility] US UPPER GI TRACT, ENDOSCOPIC 2022-02-03 Carolin Sanches Pr thodist 19:36:00 Hospital PROTHROMBIN TIME WITH INR 2022-02-03 Carolin Sanches Method ist 09:29:00 Hospital PHOSPHORUS LEVEL 2022-02-03 Carolin Sanches Y[facility]ism 09:29:00 Hospital MAGNESIUM LEVEL 2022-02-03 SanchesCarolin french [facility] 09:29:00 Hospital BASIC METABOLIC PANEL 2022-02-03 Carolin Sanches [facility] 09:29:00 Hospital HEPATIC FUNCTION PANEL 2022-02-03 Carolin Sanches [facility] 09:29:00 Hospital CBC HEMOGRAM 2022-02-03 Carolin Sanches [facility] 09:29:00 Hospital ESTIMATED GFR 2022-02-03 Nakia Cruz [facility] 09:29:00 Hospital SMEAR REVIEW 2022-02-03 Nakia Cruz [facility] 09:29:00 Hospital PROTHROMBIN TIME WITH INR 2022-02-02 Carolin Sanches Method ist 09:08:00 Hospital PHOSPHORUS LEVEL 2022-02-02 Carolin Sanches [facility]ism 09:08:00 Hospital MAGNESIUM LEVEL 2022-02-02 Carolin Sanches [facility]ism 09:08:00 Hospital BASIC METABOLIC PANEL 2022-02-02 Carolin Sanches [facility]ism 09:08:00 Hospital HEPATIC FUNCTION PANEL 2022-02-02 Carolin Sanches [facility] 09:08:00 Hospital CBC HEMOGRAM 2022-02-02 Carolin Sanches [facility]ism 09:08:00 Hospital ESTIMATED GFR 2022-02-02 Nakia Cruz [facility] 09:08:00 Hospital SMEAR REVIEW 2022-02-02 Nakia Cruz [facility] 09:08:00 Hospital XR ABDOMEN 1 VW PORTABLE 2022-02-01 Myra Garcia odist 22:39:25 [facility]19 ANTI-SPIKE IGG ANTIBODY 2022-02-01 Deepak Ward TITER 11:37:00 Hospital CBC WITH PLATELET AND DIFFERENTIAL 2022-02-01 Deepak Ward [facility] 11:37:00 Hospital PROTHROMBIN TIME WITH INR 2022-02-01 Carolin Sanches Method ist 11:37:00 [facility] COMPREHENSIVE METABOLIC PANEL 2022-02-01 Bebeto Ward ethodist 11:37:00 Hospital PHOSPHORUS LEVEL 2022-02-01 Carolin Sanches [facility] 11:37:00 Hospital MAGNESIUM LEVEL 2022-02-01 Carolin Sanches [facility] 11:37:00 [facility] THYROID STIMULATING HORMONE 2022-02-01 Bebeto Ward Met hodist 11:37:00 Hospital T4 2022-02-01 Bebeto Ward [facility] 11:37:00 [facility] VITAMIN D 25 HYDROXY LEVEL 2022-02-01 Bebeto Ward odist 11:37:00 [place] [id number] SEROLOGY PATIENT 2022-02-01 Bebeto Ward Met hodist SURVEILLANCE 11:37:00 Hospital ESTIMATED GFR 2022-02-01 Bebeto Ward [facility] 11:37:00 Hospital SMEAR REVIEW 2022-02-01 Bebeto Wardist 11:37:00 [facility] COVID-19 QUALITATIVE RT-PCR 2022-02-01 June Clark Met hodist 03:59:00 [facility] LACTIC ACID LEVEL, SEPSIS - NOW 2022-02-01 Bebeto Ward AND REPEAT 2X EVERY 3 HOURS 03:45:[address] ABDOMEN PELVIS W CONTRAST 2022-02-01 June Clark Pr thodist 02:53:55 [facility] BLOOD CULTURE, AEROBIC & ANAEROBIC 2022-02-01 Johnna Clark Y[facility]ism 02:09:00 [facility] URINE CULTURE 2022-02-01 June Clark 01:50:00 [facility] URINALYSIS SCREEN AND MICROSCOPY, 2022-02-01 Cristopher Clark [facility] WITH REFLEX TO CULTURE 01:50:00 [facility] COMPREHENSIVE METABOLIC PANEL 2022-02-01 Rolando Olivier 01:47:00 Hospital LIPASE LEVEL 2022-02-01 Rolando Olivierist 01:47:00 Hospital ESTIMATED GFR 2022-02-01 Rolando Olivier [facility] 01:47:00 Hospital LACTIC ACID LEVEL, SEPSIS - NOW 2022-02-01 Bebeto Ward Y[facility]ism AND REPEAT 2X EVERY 3 HOURS 01:47:00 Hosp [facility] PROTHROMBIN TIME WITH INR 2022-02-01 June Clark [facility] 01:47:00 [facility] PARTIAL THROMBOPLASTIN TIME (PTT) 2022-02-01 Cristopher Clark 01:47:00 [facility] AMMONIA LEVEL 2022-02-01 June Clark 01:47:00 [facility] BLOOD CULTURE, AEROBIC & ANAEROBIC 2022-02-01 Johnna Clark 01:45:00 [facility] ECG ED PRELIMINARY INTERPRETATION 2022-02-01 Cristopher Clark [facility] 01:18:19 [facility] URINE CULTURE 2022-02-01 Rolando Olivierist 01:17:00 [facility] CBC WITH PLATELET AND DIFFERENTIAL 2022-02-01 Rolando Olivier 01:17:00 Hospital URINALYSIS SCREEN AND MICROSCOPY, 2022-02-01 Rolando [facility] Y[facility] WITH REFLEX TO CULTURE 01:17:00 Hospital SMEAR REVIEW 2022-02-01 Rolando Olivier Yazidism 01:17:00 Hospital ECG 12-LEAD 2022-01-31 Rolando Olivierist 23:14:20 Hospital POC GLUCOSE 2022-01-06 Jeremy Sandoval 17:53:00 [facility] CBC WITH PLATELET AND DIFFERENTIAL 2022-01-06 Nakia Cruz 09:49:00 Hospital PROTHROMBIN TIME WITH INR 2022-01-06 Nakia Cruz ist 09:49:00 [facility] COMPREHENSIVE METABOLIC PANEL 2022-01-06 Jeremy Sandoval 09:49:00 [facility] ESTIMATED GFR 2022-01-06 Jeremy Sandoval 09:49:00 [facility] SMEAR REVIEW 2022-01-06 Nakia Cruz 09:49:00 Hospital SURGICAL PATHOLOGY REQUEST 2022-01-05 Jeremy Sandovalo dist 21:05:00 [facility] ESOPHAGOGASTRODUODENOSCOPY (EGD) 2022-01-05 Elias Guzman 20:55:00 Hospital CBC WITH PLATELET AND DIFFERENTIAL 2022-01-05 Nakia Cruzist 09:38:00 Hospital PROTHROMBIN TIME WITH INR 2022-01-05 Nakia Cruz Method ist 09:38:00 Hospital COMPREHENSIVE METABOLIC PANEL 2022-01-05 Nakia Cruz thodist 09:38:00 Hospital PHOSPHORUS LEVEL 2022-01-05 Nakia Cruz 09:38:00 Hospital MAGNESIUM LEVEL 2022-01-05 Nakia Cruz 09:38:00 Hospital ESTIMATED GFR 2022-01-05 Nakia Cruz 09:38:00 Hospital SMEAR REVIEW 2022-01-05 Nakia Cruz 09:38:00 Hospital XR ABDOMEN 1 VW PORTABLE 2022-01-[address] 16:05:00 [facility] CBC WITH PLATELET AND DIFFERENTIAL 2022-01-04 Nakia Cruzist 09:33:00 Hospital PROTHROMBIN TIME WITH INR 2022-01-04 Nakia Cruz Method ist 09:33:00 Hospital COMPREHENSIVE METABOLIC PANEL 2022-01-04 Nakia Cruz thodist 09:33:00 Hospital PHOSPHORUS LEVEL 2022-01-04 Nakia Cruz Yazidism 09:33:00 Hospital MAGNESIUM LEVEL 2022-01-04 Nakia Cruz Yazidism 09:33:00 Hospital ESTIMATED GFR 2022-01-04 Nakia Cruz Yazidism 09:33:00 Hospital SMEAR REVIEW 2022-01-04 Nakia Cruz Yazidism 09:33:00 Hospital XR ABDOMEN 1 VW PORTABLE 2022-01-03 Ara, Jeremy Methodi st 16:09:48 [facility] ZZCOVID-19 ANTI-SPIKE IGG ANTIBODY 2022-01-03 Dinakar, Sati sh Yazidism TITER 09:01:00 [facility] CBC WITH PLATELET AND DIFFERENTIAL 2022-01-03 Nakia Cruzist 09:01:00 Hospital PROTHROMBIN TIME WITH INR 2022-01-03 Nakia Cruz ist 09:01:00 [facility] COMPREHENSIVE METABOLIC PANEL 2022-01-03 Nakia Cruz thodist 09:01:00 Hospital PHOSPHORUS LEVEL 2022-01-03 Nakia Cruzist 09:01:00 Hospital MAGNESIUM LEVEL 2022-01-03 Nakia Cruzist 09:01:00 Hospital HEMOGLOBIN A1C 2022-01-03 Nakia Cruzist 09:01:00 Hospital THYROID STIMULATING HORMONE 2022-01-03 Nakia Cruz odist 09:01:00 Hospital T4 2022-01-03 Nakia Cruzist 09:01:00 Hospital VITAMIN D 25 HYDROXY LEVEL 2022-01-03 Nakia Cruzo dist 09:01:00 [facility] ZZCOVID-19 SEROLOGY PATIENT 2022-01-03 Jeremy Sandoval odist SURVEILLANCE 09:01:00 [facility] AMYLASE LEVEL 2022-01-03 Cassandra Johnson 09:01:00 [facility] ESTIMATED GFR 2022-01-03 Nakia Cruz 09:01:00 Hospital SMEAR REVIEW 2022-01-03 Nakia Cruzist 09:01:00 Hospital LIPASE LEVEL 2022-01-03 Nakia Cruzist 09:01:00 Hospital XR ABDOMEN 1 VW PORTABLE 2022-01-02 Cassandra Johnson odist 15:46:00 [facility] URINALYSIS SCREEN AND MICROSCOPY, 2022-01-02 Vandana Bernstein WITH REFLEX TO CULTURE 10:37:00 [facility] HCG QUALITATIVE, URINE SCREEN 2022-01-02 Vandana Bernstein thodist 10:37:00 [facility] URINE CULTURE 2022-01-02 Vandana Bernstein 10:34:00 [facility] COVID-19 QUALITATIVE RT-PCR 2022-01-02 Vandana Bernstein odist 10:26:[address] [facility] [address] ABDOMEN PELVIS W CONTRAST 2022-01-02 Vandana Bernstein hodist 08:56:21 [facility] CBC WITH PLATELET AND DIFFERENTIAL 2022-01-02 Vandana Bernstein Yazidism 05:47:00 [facility] COMPREHENSIVE METABOLIC PANEL 2022-01-02 Vandana Bernstein thodist 05:47:00 [facility] LIPASE LEVEL 2022-01-02 Vandana Bernstein Yazidism 05:47:00 [facility] PROTHROMBIN TIME WITH INR 2022-01-02 Vandana Bernstein Method ist 05:47:00 [facility] PARTIAL THROMBOPLASTIN TIME (PTT) 2022-01-02 Vandana Bernstein Yazidism 05:47:00 [facility] ESTIMATED GFR 2022-01-02 Vandana Bernstein Yazidism 05:47:00 [facility] SMEAR REVIEW 2022-01-02 Vandana Bernstein Yazidism 05:47:00 [facility] CBC WITH PLATELET AND DIFFERENTIAL 2021-12-18 DinakarLeah Yazidism 10:19:00 [facility] PROTHROMBIN TIME WITH INR 2021-12-18 Dinakar, Jeremy Method ist 10:19:00 [facility] BASIC METABOLIC PANEL 2021-12-18 DinakarJeremy Yazidism 10:19:00 [facility] HEPATIC FUNCTION PANEL 2021-12-18 Dinakar, Jeremy Yazidism 10:19:00 [facility] PHOSPHORUS LEVEL 2021-12-18 Dinakar, Jeremy Yazidism 10:19:00 [facility] MAGNESIUM LEVEL 2021-12-18 DinakarJeremy Yazidism 10:19:00 [facility] ESTIMATED GFR 2021-12-18 Dinakar, Jeremy Yazidism 10:19:00 [facility] SMEAR REVIEW 2021-12-18 DinakarJeremy Yazidism 10:19:00 [facility] CBC WITH PLATELET AND DIFFERENTIAL 2021-12-17 Dinakar Sati sade Yazidism 11:45:00 [facility] PROTHROMBIN TIME WITH INR 2021-12-17 Dinakar, Jeremy Method ist 11:45:00 [facility] BASIC METABOLIC PANEL 2021-12-17 Dinakar, Jeremy Yazidism 11:45:00 [facility] HEPATIC FUNCTION PANEL 2021-12-17 Jeremy Sandoval Yazidism 11:45:00 [facility] PHOSPHORUS LEVEL 2021-12-17 Jeremy Sandoval Yazidism 11:45:00 [facility] MAGNESIUM LEVEL 2021-12-17 Jeremy Sandoval Yazidism 11:45:00 [facility] ESTIMATED GFR 2021-12-17 Jeremy Sandoval Yazidism 11:45:00 [facility] SMEAR REVIEW 2021-12-17 Jeremy Sandoval Yazidism 11:45:00 [facility] NM GI BLEEDING STUDY 2021-12-16 Elias Guzman 20:06:11 [facility] MRI CHOLANGIOGRAM WO CONTRAST 2021-12-16 Elias Guzman thodist 13:57:00 Hospital MRI ABDOMEN W WO CONTRAST 2021-12-16 Elias Guzman Method ist 13:56:00 [facility] CBC WITH PLATELET AND DIFFERENTIAL 2021-12-16 Leah Sandoval Yazidism 11:26:00 [facility] PROTHROMBIN TIME WITH INR 2021-12-16 Jeremy Sandoval ist 11:26:00 [facility] BASIC METABOLIC PANEL 2021-12-16 Jeremy Sandoval Yazidism 11:26:00 [facility] HEPATIC FUNCTION PANEL 2021-12-16 Jeremy Sandoval Yazidism 11:26:00 [facility] PHOSPHORUS LEVEL 2021-12-16 Jeremy Sandoval Yazidism 11:26:00 [facility] MAGNESIUM LEVEL 2021-12-16 Jeremy Sandoval Yazidism 11:26:00 [facility] ESTIMATED GFR 2021-12-16 Jeremy Sandoval Yazidism 11:26:00 [facility] SMEAR REVIEW 2021-12-16 Jeremy Sandoval Yazidism 11:26:00 [facility] BASIC METABOLIC PANEL 2021-12-15 Bebeto Ward Yazidism 12:30:00 Hospital ESTIMATED GFR 2021-12-15 Bebeto Ward Yazidism 12:30:00 [facility] HEPATIC FUNCTION PANEL 2021-12-15 Bebeto Ward t 12:30:00 Hospital MAGNESIUM LEVEL 2021-12-15 Bebeto Ward Yazidism 12:30:00 Hospital PHOSPHORUS LEVEL 2021-12-15 Bebeto Ward Yazidism 12:30:00 Hospital CBC HEMOGRAM 2021-12-15 Ward, Bebeto Yazidism 12:30:00 Hospital PROTHROMBIN TIME WITH INR 2021-12-15 WardBebeto graves Metho dist 12:30:00 Hospital C-REACTIVE PROTEIN 2021-12-15 Ward, Bebeto Yazidism 12:30:00 Hospital SMEAR REVIEW 2021-12-15 WardBebeto Yazidism 12:30:00 Hospital CBC WITH PLATELET AND DIFFERENTIAL 2021-12-15 Dinakar, Sati sh Yazidism 11:14:00 [facility] PROTHROMBIN TIME WITH INR 2021-12-15 Dinakar, Jeremy Method ist 11:14:00 [facility] BASIC METABOLIC PANEL 2021-12-15 Dinakar, Jeremy Yazidism 11:14:00 [facility] HEPATIC FUNCTION PANEL 2021-12-15 Dinakar, Jeremy Yazidism 11:14:00 [facility] PHOSPHORUS LEVEL 2021-12-15 Dinakar, Jeremy Yazidism 11:14:00 [facility] MAGNESIUM LEVEL 2021-12-15 Dinakar, Jeremy Yazidism 11:14:00 [facility] C-REACTIVE PROTEIN 2021-12-15 WardBebeto Yazidism 11:14:00 Hospital ESTIMATED GFR 2021-12-15 Dinakar, Jeremy Yazidism 11:14:00 [facility] CBC WITH PLATELET AND DIFFERENTIAL 2021-12-14 Dinakar, Leah sh Yazidism 10:39:00 [facility] PROTHROMBIN TIME WITH INR 2021-12-14 Dinakar, Jeremy Method ist 10:39:00 [facility] BASIC METABOLIC PANEL 2021-12-14 Dinakar, Jeremy Yazidism 10:39:00 [facility] HEPATIC FUNCTION PANEL 2021-12-14 Dinakar, Jeremy Yazidism 10:39:00 [facility] PHOSPHORUS LEVEL 2021-12-14 Dinakar, Jeremy Yazidism 10:39:00 [facility] MAGNESIUM LEVEL 2021-12-14 Dinakar, Jeremy Yazidism 10:39:00 [facility] C-REACTIVE PROTEIN 2021-12-14 Ward, Bebeto Yazidism 10:39:00 Hospital FERRITIN LEVEL 2021-12-14 WardBebeto Yazidism 10:39:00 Hospital FOLATE LEVEL 2021-12-14 WardBebeto sanches Yazidism 10:39:00 Hospital HAPTOGLOBIN 2021-12-14 Bebeto Ward Yazidism 10:39:00 Hospital VITAMIN B12 LEVEL 2021-12-14 Bebeto Ward Yazidism 10:39:00 Hospital TOTAL IRON BINDING CAPACITY 2021-12-14 Bebeto Ward 10:39:00 Hospital RETICULOCYTE COUNT 2021-12-14 Bebeto Ward Yazidism 10:39:00 Hospital LDH 2021-12-14 WardBebeto graves Yazidism 10:39:00 Hospital ESTIMATED GFR 2021-12-14 Jeremy Sandoval Yazidism 10:39:00 [facility] VENIPUNC NEED PHYS SKILL,DX OR RX 2021-12-13 Latanya Ring Yazidism 21:45:17 [facility] CBC WITH PLATELET AND DIFFERENTIAL 2021-12-13 Leah Sandoval Yazidism 07:40:00 [facility] PROTHROMBIN TIME WITH INR 2021-12-13 Jeremy Sandoval ist 07:40:00 [facility] BASIC METABOLIC PANEL 2021-12-13 Jeremy Sandoval Yazidism 07:40:00 [facility] HEPATIC FUNCTION PANEL 2021-12-13 Jeremy Sandoval Yazidism 07:40:00 [facility] PHOSPHORUS LEVEL 2021-12-13 Jeermy Sandoval Yazidism 07:40:00 [facility] MAGNESIUM LEVEL 2021-12-13 Jeremy Sandoval Yazidism 07:40:00 [facility] HEMOGLOBIN A1C 2021-12-13 Jeremy Sandoval Yazidism 07:40:00 [facility] C-REACTIVE PROTEIN 2021-12-13 Bebeto Ward Yazidism 07:40:00 Hospital SEDIMENTATION RATE 2021-12-13 Bebeto Ward Yazidism 07:40:00 Hospital LDH 2021-12-13 WardBebeto sanches Yazidism 07:40:00 Hospital LIPASE LEVEL 2021-12-13 WardBebeto sanches Yazidism 07:40:00 Hospital GGT 2021-12-13 WardBebeto sanches Yazidism 07:40:00 Hospital ESTIMATED GFR 2021-12-13 Jeremy Sandoval 07:40:00 [facility] SMEAR REVIEW 2021-12-13 Jeremy Sandoval 07:40:00 [facility] BLOOD CULTURE, AEROBIC & ANAEROBIC 2021-12-12 Leah Sandovalist 12:00:00 [facility] BLOOD CULTURE, AEROBIC & ANAEROBIC 2021-12-12 DinhomarLeahist 11:42:00 [facility]SPIKE [facility]GG ANTIBODY 2021-12-12 Leah Sandoval TITER 11:40:00 [facility] TROPONIN T 2021-12-12 RehrerStevo 11:40:00 [facility] CBC WITH PLATELET AND DIFFERENTIAL 2021-12-12 Leah Sandovalist 11:40:00 [facility] 2021-12-12 Jeremy Sandoval SURVEILLANCE 11:40:00 [facility] SMEAR REVIEW 2021-12-12 Jeremy Sandoval 11:40:00 [facility] TROPONIN T 2021-12-12 RehrerStevo 09:10:00 [facility] LACTIC ACID LEVEL, SEPSIS - NOW 2021-12-12 RehrerStevo AND REPEAT 2X EVERY 3 HOURS 09:10:00 [facility] ital CT ABDOMEN PELVIS W CONTRAST 2021-12-12 Stevo Hoskins 06:58:00 [facility] ECG ED PRELIMINARY INTERPRETATION 2021-12-12 Stevo Hoskins 05:33:45 [facility] URINE CULTURE 2021-12-12 Stevo Hoskins 04:28:00 [facility] URINALYSIS SCREEN AND MICROSCOPY, 2021-12-12 ShannareStevo gallardo WITH REFLEX TO CULTURE 03:45:00 [facility] COVID-19 QUALITATIVE RT-PCR 2021-12-12 Stevo Hoskins 03:30:00 [facility] PROTHROMBIN TIME WITH INR 2021-12-12 Stevo Hoskins ist 03:30:00 [facility] PARTIAL THROMBOPLASTIN TIME (PTT) 2021-12-12 Stevo Hoskins 03:30:00 [facility] LIPASE LEVEL 2021-12-12 Rehrer, Stevo Kyle 03:30:00 [facility] TROPONIN T 2021-12-12 Rehrer, Stevo Rileyist 03:30:00 [facility] B NATRIURETIC PEPTIDE 2021-12-12 Rehrer, Stevo Rileyist 03:30:00 [facility] TYPE AND SCREEN 2021-12-12 Rehrer, Stevo Rileyist 03:30:00 [facility] LACTIC ACID LEVEL, SEPSIS - NOW 2021-12-12 Tamie Silveira AND REPEAT 2X EVERY 3 HOURS 03:30:00 Hosp ital ECG 12-LEAD 2021-12-12 Rehrer, Stevo Kyle 03:08:12 [facility] CBC WITH PLATELET AND DIFFERENTIAL 2021-12-11 Tamie Silveira 22:48:00 Hospital COMPREHENSIVE METABOLIC PANEL 2021-12-11 Tamie Silveira thodist 22:48:00 Hospital LIPASE LEVEL 2021-12-11 Tamie Silveira 22:48:00 Hospital LACTIC ACID LEVEL, SEPSIS - NOW 2021-12-11 Tamie Silveira AND REPEAT 2X EVERY 3 HOURS 22:48:00 Hosp ital ESTIMATED GFR 2021-12-11 Tamie Silveira 22:48:00 Hospital SMEAR REVIEW 2021-12-11 Tamie Silveira 22:48:00 [facility] CBC WITH PLATELET AND DIFFERENTIAL 2021-12-03 Leah Sandoval 11:14:00 [facility] PROTHROMBIN TIME WITH INR 2021-12-03 Jeremy Sandoval ist 11:14:00 [facility] BASIC METABOLIC PANEL 2021-12-03 Jeremy Sandoval 11:14:00 [facility] HEPATIC FUNCTION PANEL 2021-12-03 Jeremy Sandoval 11:14:00 [facility] PHOSPHORUS LEVEL 2021-12-03 Jeremy Sandoval 11:14:00 [facility] MAGNESIUM LEVEL 2021-12-03 Jeremy Sandoval 11:14:00 [facility] ESTIMATED GFR 2021-12-03 Jeremy Sandoval 11:14:00 [facility] SMEAR REVIEW 2021-12-03 Jeremy Sandoval 11:14:00 [facility] US DUPLEX VENOUS UPPER EXTREMITY 2021-12-02 Nancy Nakia Yazidism LEFT 18:10:00 Hospital CBC WITH PLATELET AND DIFFERENTIAL 2021-12-02 Dinakar, Leah stuart Yazidism 09:59:00 [facility] PROTHROMBIN TIME WITH INR 2021-12-02 Dinakar, Jeremy Method ist 09:59:00 [facility] BASIC METABOLIC PANEL 2021-12-02 Dinakar, Jeremy Yazidism 09:59:00 [facility] HEPATIC FUNCTION PANEL 2021-12-02 Dinakar, Jeremy Yazidism 09:59:00 [facility] PHOSPHORUS LEVEL 2021-12-02 Dinakar, Jeremy Yazidism 09:59:00 [facility] MAGNESIUM LEVEL 2021-12-02 Dinakar, Jeremy Yazidism 09:59:00 [facility] ESTIMATED GFR 2021-12-02 Dinakar, Jeremy Yazidism 09:59:00 [facility] CBC WITH PLATELET AND DIFFERENTIAL 2021-12-01 Dinakar, Leah stuart Yazidism 10:22:00 [facility] PROTHROMBIN TIME WITH INR 2021-12-01 Dinakar, Jeremy Method ist 10:22:00 [facility] BASIC METABOLIC PANEL 2021-12-01 Dinakar, Jeremy Yazidism 10:22:00 [facility] HEPATIC FUNCTION PANEL 2021-12-01 Dinakar, Jeremy Yazidism 10:22:00 [facility] PHOSPHORUS LEVEL 2021-12-01 Dinakar, Jeremy Yazidism 10:22:00 [facility] MAGNESIUM LEVEL 2021-12-01 Dinakar, Jeremy Yazidism 10:22:00 [facility] ESTIMATED GFR 2021-12-01 Dinakar, Jeremy Yazidism 10:22:00 [facility] SMEAR REVIEW 2021-12-01 Dinakar, Jeremy Yazidism 10:22:00 [facility] ESOPHAGOGASTRODUODENOSCOPY (EGD) 2021-11-30 Elias Guzman 19:49:00 Hospital CBC WITH PLATELET AND DIFFERENTIAL 2021-11-30 Dinakar, Leah stuart Yazidism 10:53:00 [facility] PROTHROMBIN TIME WITH INR 2021-11-30 Dinakar, Jeremy Method ist 10:53:00 [facility] BASIC METABOLIC PANEL 2021-11-30 Dinakar, Jeremy Yazidism 10:53:00 [facility] HEPATIC FUNCTION PANEL 2021-11-30 Dinakar, Jeremy Yazidism 10:53:00 [facility] PHOSPHORUS LEVEL 2021-11-30 Dinakar, Jeremy Yazidism 10:53:00 [facility] MAGNESIUM LEVEL 2021-11-30 Dinakar, Jeremy Yazidism 10:53:00 [facility] ESTIMATED GFR 2021-11-30 Dinakar, Jeremy Yazidism 10:53:00 [facility] SMEAR REVIEW 2021-11-30 Dinakar, Jeremy Yazidism 10:53:00 [facility] CBC WITH PLATELET AND DIFFERENTIAL 2021-11-29 Dinakar, Sati sade Yazidism 10:50:00 [facility] PROTHROMBIN TIME WITH INR 2021-11-29 Dinakar, Jeremy Method ist 10:50:00 [facility] BASIC METABOLIC PANEL 2021-11-29 Dinakar, Jeremy Yazidism 10:50:00 [facility] HEPATIC FUNCTION PANEL 2021-11-29 Dinakar, Jeremy Yazidism 10:50:00 [facility] PHOSPHORUS LEVEL 2021-11-29 Dinakar, Jeremy Yazidism 10:50:00 [facility] MAGNESIUM LEVEL 2021-11-29 Dinakar, Jeremy Yazidism 10:50:00 [facility] ESTIMATED GFR 2021-11-29 Dinakar, Jeremy Yazidism 10:50:00 [facility] SMEAR REVIEW 2021-11-29 Dinakar, Jeremy Yazidism 10:50:00 [facility] CBC WITH PLATELET AND DIFFERENTIAL 2021-11-28 Dinakar, Sati sade Yazidism 09:28:00 [facility] PROTHROMBIN TIME WITH INR 2021-11-28 Dinakar, Jeremy Method ist 09:28:00 [facility] BASIC METABOLIC PANEL 2021-11-28 Dinakar, Jeremy Yazidism 09:28:00 [facility] HEPATIC FUNCTION PANEL 2021-11-28 Dinakar, Jeremy Yazidism 09:28:00 [facility] PHOSPHORUS LEVEL 2021-11-28 Dinakar, Jeremy Yazidism 09:28:00 [facility] MAGNESIUM LEVEL 2021-11-28 Dinakar, Jeremy Yazidism 09:28:00 [facility] ESTIMATED GFR 2021-11-28 Dinakar, Jeremy Yazidism 09:28:00 [facility] OCCULT BLOOD, STOOL 2021-11-27 Jefferson Skelton Yazidism 23:26:00 Hospital XR ABDOMEN 1 VW PORTABLE 2021-11-27 Myra Garcia odist 20:25:00 [facility] CBC WITH PLATELET AND DIFFERENTIAL 2021-11-27 Michelakar, Leah stuart Yazidism 09:07:00 [facility] PROTHROMBIN TIME WITH INR 2021-11-27 Ara, Jeremy Method ist 09:07:00 [facility] BASIC METABOLIC PANEL 2021-11-27 Michelakar, Jeremy Yazidism 09:07:00 [facility] HEPATIC FUNCTION PANEL 2021-11-27 Michelakar, Jeremy Yazidism 09:07:00 [facility] PHOSPHORUS LEVEL 2021-11-27 Michelakar, Jeremy Yazidism 09:07:00 [facility] MAGNESIUM LEVEL 2021-11-27 Michelakar, Jeremy Yazidism 09:07:00 [facility] HEMOGLOBIN A1C 2021-11-27 Ara, Jeremy Yazidism 09:07:00 [facility] ESTIMATED GFR 2021-11-27 Ara, Jeremy Yazidism 09:07:00 [facility] SMEAR REVIEW 2021-11-27 Jeremy Sandoval 09:07:00 [facility] BLOOD CULTURE, AEROBIC & ANAEROBIC 2021-11-27 Ara, Leah Rileyist 04:03:00 [place] [id number] ANTI-SPIKE IGG ANTIBODY 2021-11-27 Leah Sandoval TITER 04:03:00 [place] [id number] SEROLOGY PATIENT 2021-11-27 Jeremy Sandoval SURVEILLANCE 04:03:00 [facility] CTA ABD/PEL FOR BLEEDING 2021-11-27 Jefferson Skeltono dist 01:38:34 Hospital HEMOGLOBIN & HEMATOCRIT 2021-11-27 [facility] Method ist 01:34:00 Hospital SMEAR REVIEW 2021-11-27 Jefferson Skeltonist 01:34:00 Hospital RESPIRATORY PATHOGEN PANEL WITH 2021-11-27 [facility] [place] COVID-19 RT-PCR 00:58:00 Hospital TYPE AND SCREEN 2021-11-27 [facility] Yazidism 00:30:00 Hospital PROTHROMBIN TIME WITH INR 2021-11-27 [facility] Meth odist 00:30:00 Hospital AMMONIA LEVEL 2021-11-27 [facility] Yazidism 00:30:00 Hospital ECG 12-LEAD 2021-11-27 [facility] Yazidism 00:29:32 Hospital ECG ED PRELIMINARY INTERPRETATION 2021-11-27 [facility] Yazidism 00:04:12 Hospital CBC WITH PLATELET AND DIFFERENTIAL 2021-11-26 [facility] Sk[facility] Yazidism 21:32:00 Hospital COMPREHENSIVE METABOLIC PANEL 2021-11-26 [facility] Sk[facility] Yazidism 21:32:00 Hospital LIPASE LEVEL 2021-11-26 [facility] Yazidism 21:32:00 Hospital HCG QUALITATIVE, SERUM SCREEN 2021-11-26 [facility] Yazidism 21:32:00 Hospital ESTIMATED GFR 2021-11-26 Rex Cabralesn-Balwinder Yazidism 21:32:00 [facility] SMEAR REVIEW 2021-11-26 Keron Yen-Te Yazidism 21:32:00 [facility] CBC WITH PLATELET AND DIFFERENTIAL 2021-10-26 Nakia Cruzist 11:26:00 Hospital PROTHROMBIN TIME WITH INR 2021-10-26 Nakia Cruz Method ist 11:26:00 [facility] BASIC METABOLIC PANEL 2021-10-26 Anand Arora Yazidism 11:26:00 [facility] ESTIMATED GFR 2021-10-26 MaiteAndriy salomone Yazidism 11:26:00 [facility] SMEAR REVIEW 2021-10-26 Nakia Cruz Yazidism 11:26:00 Hospital CBC WITH PLATELET AND DIFFERENTIAL 2021-10-25 Nakia Cruz 09:30:00 Hospital PROTHROMBIN TIME WITH INR 2021-10-25 Nakia Cruz Method ist 09:30:00 [facility] COMPREHENSIVE METABOLIC PANEL 2021-10-25 Nakia Cruz thodi 09:30:00 Hospital ESTIMATED GFR 2021-10-25 Nakia Cruz 09:30:00 Hospital MAGNESIUM LEVEL 2021-10-25 Nakia Cruz Yazidism 09:30:00 Hospital PHOSPHORUS LEVEL 2021-10-25 Nakia Cruz Yazidism 09:30:00 Hospital BILIRUBIN DIRECT 2021-10-25 Nakia Cruz Yazidism 09:30:00 Hospital SMEAR REVIEW 2021-10-25 Nakia Cruz Yazidism 09:30:00 Hospital CBC WITH PLATELET AND DIFFERENTIAL 2021-10-24 Nakia Cruz Yazidism 09:17:00 Hospital PROTHROMBIN TIME WITH INR 2021-10-24 Nakia Cruz Method ist 09:17:00 Hospital COMPREHENSIVE METABOLIC PANEL 2021-10-24 Nakia Cruz thodist 09:17:00 Hospital PHOSPHORUS LEVEL 2021-10-24 Nakia Cruz Yazidism 09:17:00 Hospital MAGNESIUM LEVEL 2021-10-24 Nakia Cruz Yazidism 09:17:00 Hospital ESTIMATED GFR 2021-10-24 Nakia Cruz Yazidism 09:17:00 Hospital SMEAR REVIEW 2021-10-24 Nakia Cruz 09:17:00 Hospital ESOPHAGOGASTRODUODENOSCOPY (EGD) 2021-10-23 Elias Guzman 17:25:00 Hospital CBC WITH PLATELET AND DIFFERENTIAL 2021-10-23 Nakia Cruz Yazidism 11:38:00 Hospital PROTHROMBIN TIME WITH INR 2021-10-23 Nakia Cruz Method ist 11:38:00 [facility] COMPREHENSIVE METABOLIC PANEL 2021-10-23 Nakia Cruz thodist 11:38:00 Hospital PHOSPHORUS LEVEL 2021-10-23 Nakia Cruz Yazidism 11:38:00 Hospital MAGNESIUM LEVEL 2021-10-23 Nakia Cruz Yazidism 11:38:00 Hospital ESTIMATED GFR 2021-10-23 Nakia Cruz Yazidism 11:38:00 Hospital SMEAR REVIEW 2021-10-23 Nakia Cruz Yazidism 11:38:00 Hospital TTE COMPLETE, W CONTRAST, W 2021-10-22 Myra Garcia ethodist DOPPLER ([id number]) 14:21:00 [facility] CBC WITH PLATELET AND DIFFERENTIAL 2021-10-22 Nakia Cruz Yazidism 10:31:00 Hospital PROTHROMBIN TIME WITH INR 2021-10-22 Nakia Cruz Method ist 10:31:00 Hospital COMPREHENSIVE METABOLIC PANEL 2021-10-22 Nakia Cruz thodist 10:31:00 Hospital PHOSPHORUS LEVEL 2021-10-22 Nakia Cruzist 10:31:00 Hospital MAGNESIUM LEVEL 2021-10-22 Nakia Cruz 10:31:00 [facility] THYROID STIMULATING HORMONE 2021-10-22 Nakia Cruz odist 10:31:00 Hospital T4 2021-10-22 Nakia Cruz 10:31:00 Hospital VITAMIN D 25 HYDROXY LEVEL 2021-10-22 Nakia Cruzo dist 10:31:00 Hospital ALPHA FETOPROTEIN 2021-10-22 Myra Garcia 10:31:00 [facility] ESTIMATED GFR 2021-10-22 Nakia Cruz 10:31:00 [facility] SMEAR REVIEW 2021-10-22 Nakia Cruz 10:31:00 [facility] COVID-19 QUALITATIVE RT-PCR 2021-10-22 Nakia Cruz odist 00:29:00 Hospital URINE CULTURE 2021-10-21 Nakia Cruz 22:46:00 [facility] URINALYSIS SCREEN AND MICROSCOPY, 2021-10-21 Nakia Cruz WITH REFLEX TO CULTURE 22:46:00 [facility] XR ABDOMEN 1 VW PORTABLE 2021-10-21 Myra Garcia odist 22:35:00 [facility] CT ABDOMEN PELVIS WO CONTRAST 2021-10-21 Nakia Cruz thodist 20:20:30 [place] [id number] ANTI-SPIKE IGG ANTIBODY 2021-10-21 Nakia Cruz TITER 16:31:00 Hospital CBC WITH PLATELET AND DIFFERENTIAL 2021-10-21 Nakia Cruz 16:31:00 Hospital COMPREHENSIVE METABOLIC PANEL 2021-10-21 Nakia Cruz thodist 16:31:00 Hospital PROTHROMBIN TIME WITH INR 2021-10-21 Nakia Cruz ist 16:31:00 Hospital MAGNESIUM LEVEL 2021-10-21 Nakia Cruz 16:31:00 Hospital PHOSPHORUS LEVEL 2021-10-21 Nakia Cruz 16:31:00 Hospital LIPASE LEVEL 2021-10-21 Nakia Cruz 16:31:00 [facility]-19 SEROLOGY PATIENT 2021-10-21 Nakia Cruz odist SURVEILLANCE 16:31:00 Hospital ESTIMATED GFR 2021-10-21 Nakia Cruz Yazidism 16:31:00 Hospital XR KNEE 3 VW RIGHT 2021-09-29 Sukhdev Soto Mckenzie of 04:06:00 [facility] NOTICE OF PRIVACY PRACTICES 2021-09-29 Doctor Unasslis, [facility]iversity of 02:46:43 Hissop [facility] CONSENT/REFUSAL FOR DIAGNOSIS AND 2021-09-29 Doctor Buck olmedo, [facility] 02:46:16 Hissop [facility] XR KNEE 3 VW LEFT 2021-04-02 [facility] o f 20:10:39 F [facility] CONSENT/REFUSAL FOR DIAGNOSIS AND 2021-04-02 Doctor Buck olmedo, [facility] 17:59:31 Hissop [facility] ASSIGNMENT OF BENEFITS 2021-03-10 Doctor Unasslis, [facility] sit of 20:29:46 Hissop [facility] HC COMPLETE BLD COUNT W/AUTO DIFF 2021-02-20 Kaylynn Suresh 10:53:00 [facility] BASIC METABOLIC PANEL 2021-02-20 Kaylynn Suresh 10:53:00 [facility] HEPATIC FUNCTION PANEL 2021-02-20 Kaylynn Suresh 10:53:00 [facility] MAGNESIUM LEVEL 2021-02-20 Kaylynn Suresh 10:53:00 [facility] PHOSPHORUS LEVEL 2021-02-20 Kaylynn Suresh 10:53:00 [facility] PROTHROMBIN TIME WITH INR 2021-02-20 Rosemary Suresh ist 10:53:00 [facility] ESTIMATED GFR 2021-02-20 Kaylynn Suresh 10:53:00 [facility] SMEAR REVIEW 2021-02-20 Kaylynn Suresh 10:53:00 [facility] MRI CHOLANGIOGRAM WO CONTRAST 2021-02-20 Jeremy Sandoval 00:15:00 [facility] NEED PHYS SKILL,DX OR RX 2021-02-19 Latanya Ring lda Yazidism 16:10:21 Hospital HC COMPLETE BLD COUNT W/AUTO DIFF 2021-02-19 Kaylynn Suresh 11:00:00 [facility] BASIC METABOLIC PANEL 2021-02-19 Kaylynn Suresh 11:00:00 [facility] HEPATIC FUNCTION PANEL 2021-02-19 Kaylynn Suresh 11:00:00 [facility] MAGNESIUM LEVEL 2021-02-19 Kaylynn Suresh 11:00:00 [facility] PHOSPHORUS LEVEL 2021-02-19 Kaylynn Suresh 11:00:00 [facility] PROTHROMBIN TIME WITH INR 2021-02-19 Rosemary Suresh ist 11:00:00 [facility] ESTIMATED GFR 2021-02-19 Kaylynn Suresh 11:00:00 [facility] SMEAR REVIEW 2021-02-19 Kaylynn Suresh 11:00:00 [facility] CT ABDOMEN PELVIS WO CONTRAST 2021-02-19 Me Demetrice thodist 03:25:00 [facility] URINE CULTURE 2021-02-19 Kaylynn Suresh 02:27:00 [facility] URINALYSIS SCREEN AND MICROSCOPY, 2021-02-19 Kaylynn Suresh WITH REFLEX TO CULTURE 02:27:00 [facility] BLOOD CULTURE, AEROBIC & ANAEROBIC 2021-02-18 Kaylynn Suresh 23:25:00 [facility] TYPE AND SCREEN 2021-02-18 Dre Mayerist 23:25:00 Hospital COVID-19 ANTI-SPIKE IGG ANTIBODY 2021-02-18 Kaylynn Suresh TITER 22:57:00 [facility] COVID-19 SEROLOGY PATIENT 2021-02-18 Rosemary Suresh ist SURVEILLANCE 22:57:00 [facility] HC COMPLETE BLD COUNT W/AUTO DIFF 2021-02-18 Kaylynn Suresh 22:57:00 [facility] PROTHROMBIN TIME WITH INR 2021-02-18 Rosemary Suresh ist 22:57:00 [facility] COMPREHENSIVE METABOLIC PANEL 2021-02-18 Me Demetrice thodist 22:57:00 [facility] LACTIC ACID LEVEL 2021-02-18 Kaylynn Suresh 22:57:00 [facility] MAGNESIUM LEVEL 2021-02-18 Kaylynn Suresh 22:57:00 [facility] PHOSPHORUS LEVEL 2021-02-18 Kaylynn Suresh 22:57:00 [facility] LIPASE LEVEL 2021-02-18 Kaylynn Suresh 22:57:00 [facility] ESTIMATED GFR 2021-02-18 Kaylynn Suresh 22:57:00 [facility] SMEAR REVIEW 2021-02-18 Kaylynn Suresh 22:57:00 [facility] PHOSPHORUS 2020-10-03 Brenda Teixeira of 08:52:00 [facility] MAGNESIUM 2020-10-03 Brenda Teixeira Mckenzie of 08:52:00 [facility] COMP. METABOLIC PANEL ([id number]) 2020-10-03 Brenda Teixeira Un iversity of 08:52:00 [facility] CBC WITH DIFF 2020-10-03 Brenda Teixeira of 08:52:00 [facility] COMP. METABOLIC PANEL ([id number]) 2020-10-02 Brenda Teixeira Un iversity of 08:39:00 [facility] CBC WITH DIFF 2020-10-02 Brenda Teixeira of 08:39:00 [facility] US DUPLEX VENOUS ARM LEFT - BY 2020-10-01 Brenda Teixeira [facility] of VASCULAR LAB 16:22:58 [facility] COMP. METABOLIC PANEL ([id number]) 2020-10-01 Tomasa Rucker Un iversity of 07:45:00 [facility] CBC WITH DIFF 2020-10-01 Tomasa Rucker [facility] of 07:45:00 [facility] TROPONIN I 2020-09-30 [facility] of 10:56:00 [facility] COMP. METABOLIC PANEL ([id number]) 2020-09-30 Shaina Pinto Un iversity of 10:56:00 [facility] CBC WITH DIFF 2020-09-30 Shaina Pinto of 10:56:00 [facility] N-TERMINAL PRO-BNP 2020-09-30 Shaina Pinto of 08:05:00 [facility] OCCULT (GUAIAC) BLOOD 2020-09-30 Shaina Pinto Mckenzie of 02:10:00 [facility] FECAL LEUKOCYTES 2020-09-30 Shaina Pinto Mckenzie of 02:10:00 [facility] CLOSTRIDIUM DIFFICILE TOXIN 2020-09-30 Alisha sharad [facility] ersity of 02:10:00 [facility] FECAL PATHOGENS BY PCR 2020-09-30 Alisha [facility] y of 02:10:00 [facility] POCT GLUCOSE (AUTOMATED) 2020-09-30 Rene Evans [facility] sity of 00:35:00 [facility] BASIC METABOLIC PANEL (NA, K, CL, 2020-09-29 [facility] CO2, GLUCOSE, BUN, CREATININE, CA) 21:11:00 [facility] HEMOGLOBIN 2020-09-29 RoscoeTomasa Mckenzie of 21:11:00 [facility] TRANSTHORACIC ECHO (TTE) COMPLETE 2020-09-29 Marco Levy Mckenzie of 16:03:00 [facility] HB ECG ROUTINE & RHYTHM STRIP 2020-09-29 Shaina Pinto iversity of 11:18:58 [facility] OSMOLALITY URINE 2020-09-29 Alisha [facility] of 08:56:00 [facility] URINE CULTURE 2020-09-29 Alisha [facility] of 08:56:00 [facility] SODIUM, URINE RANDOM 2020-09-29 Alisha [facility] of 08:56:00 [facility] PROTEIN CREAT RATIO URINE RANDOM 2020-09-29 Alisha [facility] of 08:56:00 [facility] BLOOD CULTURE SCREEN 2020-09-29 Alisha [facility] of 08:32:00 [facility] LACTIC ACID WHOLE BLOOD 2020-09-29 Alisha [facility] ty of 08:32:00 [facility] VITAMIN B12, LEVEL 2020-09-29 [facility] 08:31:00 [facility] C-REACTIVE PROTEIN 2020-09-29 Alisha [facility] of 08:31:00 [facility] IRON PANEL 2020-09-29 Alisha [facility] of 08:31:00 [facility] SEDIMENTATION RATE 2020-09-29 Shaina Pinto of 08:31:00 [facility] DIFF CONSULT INTERPRETATION 2020-09-29 Shaina Pinto [facility] ersity of 08:31:00 [facility] CBC WITH DIFF 2020-09-29 Shaina Pinto Mckenzie of 08:31:00 [facility] PROTHROMBIN TIME / INR 2020-09-29 [facility] 08:31:00 [facility] N-TERMINAL PRO-BNP 2020-09-29 Shaina Pinto Mckenzie of 08:31:00 [facility] VITAMIN D, 25-OH 2020-09-29 [facility] 08:31:00 [facility] PROCALCITONIN 2020-09-29 [facility] 08:31:00 [facility] COVID-19 (ID NOW RAPID TESTING) 2020-09-29 Rene Evans Mckenzie of 05:10:00 [facility] LAB ONLY COVID INTERPRETATION 2020-09-29 Rene Evans [facility] of 05:10:[address] [facility] CT ABDOMEN PELVIS W CONTRAST 2020-09-29 Rene Evans Un iversity of 04:56:31 [facility] URINALYSIS 2020-09-29 Rene Evans of 04:19:00 [facility] PHOSPHORUS 2020-09-29 Shaina Pinto Mckenzie of 03:54:00 [facility] CREATINE KINASE 2020-09-29 Shaina Pinto Mckenzie of 03:54:00 [facility] URIC ACID 2020-09-29 Shaina Pinto Mckenzie of 03:54:00 [facility] LIPASE 2020-09-29 Rene Evans Mckenzie of 03:54:00 [facility] MAGNESIUM 2020-09-29 Shaina Pinto Mckenzie of 03:54:00 [facility] FERRITIN SERUM 2020-09-29 Shaina Pinto Mckenzie of 03:54:00 [facility] TROPONIN I 2020-09-29 Marco Levy Mckenzie of 03:54:00 [facility] THYROID STIMULATING HORMONE 2020-09-29 Shaina Pinto [facility] ersity of 03:54:00 [facility] COMP. METABOLIC PANEL ([id number]) 2020-09-29 Rene Evans [facility] of 03:54:00 [facility] LIPID PANEL ([id number])(TOTAL 2020-09-29 Shaina Pinto of CHOLESTEROL, TRIGLYCERIDES, HDL) 03:54:00 [facility] CBC WITH DIFF 2020-09-29 Rene Evans [facility] of 03:54:00 [facility] GLYCOSYLATED HEMOGLOBIN (A1C) 2020-09-29 Shaina Pinto Un iversity of 03:54:00 [facility] N-TERMINAL PRO-BNP 2020-09-29 Shaina Pinto of 03:54:00 [facility] CONSENT/REFUSAL FOR DIAGNOSIS AND 2020-09-29 Doctor Buck olmedo, [facility] 03:18:51 Hissop [facility] NOTICE OF PRIVACY PRACTICES 2020-09-29 Doctor Unassigned, U niversity of 03:18:30 Hissop [facility] CT ABDOMEN PELVIS W CONTRAST 2019-08-11 Corby Ca Uni versity of 14:50:46 [facility] COMP. METABOLIC PANEL ([id number]) 2019-08-11 Shaina Pinto Un iversity of 08:00:00 [facility] CBC WITH DIFFERENTIAL 2019-08-11 Shaina Pinto of 08:00:00 [facility] CBC WITH DIFFERENTIAL 2019-08-11 Shaina Pinto of 08:00:00 [facility] XR SMALL BOWEL SERIES 2019-08-10 Valente Piña Mckenzie of 21:18:47 [facility] XR ABDOMEN 1 VW 2019-08-10 Shaina Pinto of 11:52:39 [facility] PHOSPHORUS 2019-08-10 Shaina Pinto of 11:11:00 [facility] CREATINE KINASE 2019-08-10 Shaina Pinto of 11:11:00 [facility] AMYLASE 2019-08-10 Shaina Pinto of 11:11:00 [facility] LIPASE 2019-08-10 Shaina Pinto of 11:11:00 [facility] MAGNESIUM 2019-08-10 Shaina Pinto of 11:11:00 [facility] TEST, SERUM 2019-08-10 Shaina Pinto of 11:11:00 [facility] THYROID STIMULATING HORMONE 2019-08-10 Shaina Pinto Univ ersity of 11:11:00 [facility] COMP. METABOLIC PANEL ([id number]) 2019-08-10 Shaina Pinto Un iversity of 11:11:00 [facility] LIPID PANEL ([id number])(TOTAL 2019-08-10 Shaina Pinto Univer sity of CHOLESTEROL, TRIGLYCERIDES, HDL) 11:11:00 [facility] SEDIMENTATION RATE 2019-08-10 Shaina Pinto Mckenzie of 11:11:00 [facility] CBC WITH DIFFERENTIAL 2019-08-10 [facility] 11:11:00 [facility] GLYCOSYLATED HEMOGLOBIN (A1C) 2019-08-10 Shaina Pinto Un iversity of 11:11:00 [facility] PROTHROMBIN TIME / INR 2019-08-10 [facility] 11:11[facility]00 [facility] CORONAVIRUS COVID-19 TESTING 2019-08-10 Shaina Pinto Uni versity of 09:04:00 [facility] Plan of Care Planned Activity Planned Date Details Comments Source Future Scheduled 2022-04-30 Hepatitis C screening [facility] Test 10:39:21 (procedure) [code = 475751284] Future Scheduled 2022-04-30 Screening for [facility] Test 10:39:21 malignant neoplasm of cervix (procedure) [code = [id number]] Future Scheduled 2022-04-30 BREAST CANCER [facility] Test 10:39:21 SCREENING [code = BREAST CANCER SCREENING] Future Scheduled 2022-04-30 COLONOSCOPY SCREENING [facility] Test 10:39:21 [code = COLONOSCOPY SCREENING] Future Scheduled 2022-04-30 SHINGLES VACCINES (1 Met [facility] Test 10:39:21 of 2) [code = SHINGLES VACCINES (1 of 2)] Future Scheduled 2022-04-30 COVID-19 VACCINE (3 - Me [facility] Test 10:39:21 Booster for Moderna series) [code = COVID-19 VACCINE (3 - Booster for Moderna series)] Future Scheduled 2022-04-30 HEPATITIS B VACCINES Met [facility] Test 10:39:21 (1 of 3 - Risk 3-dose series) [code = HEPATITIS B VACCINES (1 of 3 - Risk 3-dose series)] Future Scheduled 2022-04-30 Pneumococcal Vaccine: [facility] Test 10:39:21 Pediatrics (0 to 5 Years) and At-Risk Patients (6 to 64 Years) (2 - PCV) [code = Pneumococcal Vaccine: Pediatrics (0 to 5 Years) and At-Risk Patients (6 to 64 Years) (2 - PCV)] Future Scheduled 2022-04-03 Hepatitis C screening [facility] Test 09:24:01 (procedure) [code = 762622933] Future Scheduled 2022-04-03 Screening for [facility] Test 09:24:01 malignant neoplasm of cervix (procedure) [code = [id number]] Future Scheduled 2022-04-03 BREAST CANCER [facility] Test 09:24:01 SCREENING [code = BREAST CANCER SCREENING] Future Scheduled 2022-04-03 COLONOSCOPY SCREENING [facility] Test 09:24:01 [code = COLONOSCOPY SCREENING] Future Scheduled 2022-04-03 SHINGLES VACCINES (1 Met [facility] Test 09:24:01 of 2) [code = SHINGLES VACCINES (1 of 2)] Future Scheduled 2022-04-03 COVID-19 VACCINE (3 - [facility] Test 09:24:01 Booster for Moderna series) [code = COVID-19 VACCINE (3 - Booster for Moderna series)] Future Scheduled 2022-04-03 HEPATITIS B VACCINES Met [facility] Test 09:24:01 (1 of 3 - Risk 3-dose series) [code = HEPATITIS B VACCINES (1 of 3 - Risk 3-dose series)] Future Scheduled 2022-04-03 Pneumococcal Vaccine: [facility] Test 09:24:01 Pediatrics (0 to 5 Years) and At-Risk Patients (6 to 64 Years) (2 - PCV) [code = Pneumococcal Vaccine: Pediatrics (0 to 5 Years) and At-Risk Patients (6 to 64 Years) (2 - PCV)] Future Scheduled 2022-03-25 Hepatitis C screening [facility] Test 03:54:02 (procedure) [code = [id number]] Future Scheduled 2022-03-25 BREAST CANCER [facility] Test 03:54:02 SCREENING [code = BREAST CANCER SCREENING] Future Scheduled 2022-03-25 COLONOSCOPY SCREENING [facility] Test 03:54:02 [code = COLONOSCOPY SCREENING] Future Scheduled 2022-03-25 SHINGLES VACCINES (1 Met [facility] Test 03:54:02 of 2) [code = SHINGLES VACCINES (1 of 2)] Future Scheduled 2022-03-25 COVID-19 VACCINE (3 - [facility] Test 03:54:02 Booster for Moderna series) [code = COVID-19 VACCINE (3 - Booster for Moderna series)] Future Scheduled 2022-03-25 HEPATITIS B VACCINES Met [facility] Test 03:54:02 (1 of 3 - Risk 3-dose series) [code = HEPATITIS B VACCINES (1 of 3 - Risk 3-dose series)] Future Scheduled 2022-03-25 Pneumococcal Vaccine: [facility] Test 03:54:02 Pediatrics (0 to 5 Years) and At-Risk Patients (6 to 64 Years) (2 - PCV) [code = Pneumococcal Vaccine: Pediatrics (0 to 5 Years) and At-Risk Patients (6 to 64 Years) (2 - PCV)] Future Scheduled 2022-03-15 Hepatitis C screening [facility] Test 14:24:37 (procedure) [code = 545773262] Future Scheduled 2022-03-15 Screening for [facility] Test 14:24:37 malignant neoplasm of cervix (procedure) [code = 091160921] Future Scheduled 2022-03-15 BREAST CANCER [facility] Test 14:24:37 SCREENING [code = BREAST CANCER SCREENING] Future Scheduled 2022-03-15 COLONOSCOPY SCREENING [facility] Test 14:24:37 [code = COLONOSCOPY SCREENING] Future Scheduled 2022-03-15 SHINGLES VACCINES (1 Met [facility] Test 14:24:37 of 2) [code = SHINGLES VACCINES (1 of 2)] Future Scheduled 2022-03-15 COVID-19 VACCINE (3 - [facility] Test 14:24:37 Booster for Moderna series) [code = COVID-19 VACCINE (3 - Booster for Moderna series)] Future Scheduled 2022-03-15 HEPATITIS B VACCINES Met [facility] Test 14:24:37 (1 of 3 - Risk 3-dose series) [code = HEPATITIS B VACCINES (1 of 3 - Risk 3-dose series)] Future Scheduled 2022-03-15 Pneumococcal Vaccine: [facility] Test 14:24:37 Pediatrics (0 to 5 Years) and At-Risk Patients (6 to 64 Years) (2 - PCV) [code = Pneumococcal Vaccine: Pediatrics (0 to 5 Years) and At-Risk Patients (6 to 64 Years) (2 - PCV)] Future Scheduled 2022-01-15 Pneumococcal Vaccine: [facility] Test 07:35:31 Pediatrics (0 to 5 Years) and At-Risk Patients (6 to 64 Years) (1 - PCV) [code = Pneumococcal Vaccine: Pediatrics (0 to 5 Years) and At-Risk Patients (6 to 64 Years) (1 - PCV)] Future Scheduled 2022-01-15 Hepatitis C screening [facility] Test 07:35:31 (procedure) [code = [id number]] Future Scheduled 2022-01-15 Screening for [facility] Test 07:35:31 malignant neoplasm of cervix (procedure) [code = 562783207] Future Scheduled 2022-01-15 BREAST CANCER [facility] Test 07:35:31 SCREENING [code = BREAST CANCER SCREENING] Future Scheduled 2022-01-15 COLONOSCOPY SCREENING [facility] Test 07:35:31 [code = COLONOSCOPY SCREENING] Future Scheduled 2022-01-15 SHINGLES VACCINES (1 Met [facility] Test 07:35:31 of 2) [code = SHINGLES VACCINES (1 of 2)] Future Scheduled 2022-01-15 COVID-19 VACCINE (3 - [facility] Test 07:35:31 Booster for Moderna series) [code = COVID-19 VACCINE (3 - Booster for Moderna series)] Future Scheduled 2022-01-15 HEPATITIS B VACCINES Met [facility] Test 07:35:31 (1 of 3 - Risk 3-dose series) [code = HEPATITIS B VACCINES (1 of 3 - Risk 3-dose series)] Future Scheduled 2022-01-13 Pneumococcal Vaccine: [facility] Test 14:41:05 Pediatrics (0 to 5 Years) and At-Risk Patients (6 to 64 Years) (1 - PCV) [code = Pneumococcal Vaccine: Pediatrics (0 to 5 Years) and At-Risk Patients (6 to 64 Years) (1 - PCV)] Future Scheduled 2022-01-13 Hepatitis C screening [facility] Test 14:41:05 (procedure) [code = [id number]] Future Scheduled 2022-01-13 Screening for [facility] Test 14:41:05 malignant neoplasm of cervix (procedure) [code = 943390636] Future Scheduled 2022-01-13 BREAST CANCER [facility] Test 14:41:05 SCREENING [code = BREAST CANCER SCREENING] Future Scheduled 2022-01-13 COLONOSCOPY SCREENING [facility] Test 14:41:05 [code = COLONOSCOPY SCREENING] Future Scheduled 2022-01-13 SHINGLES VACCINES (1 Met [facility] Test 14:41:05 of 2) [code = SHINGLES VACCINES (1 of 2)] Future Scheduled 2022-01-13 COVID-19 VACCINE (3 - [facility] Test 14:41:05 Booster for Moderna series) [code = COVID-19 VACCINE (3 - Booster for Moderna series)] Future Scheduled 2022-01-13 HEPATITIS B VACCINES Met [facility] Test 14:41:05 (1 of 3 - Risk 3-dose series) [code = HEPATITIS B VACCINES (1 of 3 - Risk 3-dose series)] Future Scheduled 2021-12-24 Pneumococcal Vaccine: [facility] Test 07:34:42 Pediatrics (0 to 5 Years) and At-Risk Patients (6 to 64 Years) (1 - PCV) [code = Pneumococcal Vaccine: Pediatrics (0 to 5 Years) and At-Risk Patients (6 to 64 Years) (1 - PCV)] Future Scheduled 2021-12-24 Hepatitis C screening [facility] Test 07:34:42 (procedure) [code = 297122232] Future Scheduled 2021-12-24 Screening for [facility] Test 07:34:42 malignant neoplasm of cervix (procedure) [code = 997906023] Future Scheduled 2021-12-24 BREAST CANCER [facility] Test 07:34:42 SCREENING [code = BREAST CANCER SCREENING] Future Scheduled 2021-12-24 COLONOSCOPY SCREENING [facility] Test 07:34:42 [code = COLONOSCOPY SCREENING] Future Scheduled 2021-12-24 SHINGLES VACCINES (1 Met [facility] Test 07:34:42 of 2) [code = SHINGLES VACCINES (1 of 2)] Future Scheduled 2021-12-24 COVID-19 VACCINE (3 - [facility] Test 07:34:42 Booster for Moderna series) [code = COVID-19 VACCINE (3 - Booster for Moderna series)] Future Scheduled 2021-12-24 HEPATITIS B VACCINES Met [facility] Test 07:34:42 (1 of 3 - Risk 3-dose series) [code = HEPATITIS B VACCINES (1 of 3 - Risk 3-dose series)] Future Scheduled 2021-12-09 Pneumococcal Vaccine: [facility] Test 13:56:39 Pediatrics (0 to 5 Years) and At-Risk Patients (6 to 64 Years) (1 - PCV) [code = Pneumococcal Vaccine: Pediatrics (0 to 5 Years) and At-Risk Patients (6 to 64 Years) (1 - PCV)] Future Scheduled 2021-12-09 Hepatitis C screening [facility] Test 13:56:39 (procedure) [code = 325179864] Future Scheduled 2021-12-09 Screening for [facility] Test 13:56:39 malignant neoplasm of cervix (procedure) [code = [id number]] Future Scheduled 2021-12-09 BREAST CANCER [facility] Test 13:56:39 SCREENING [code = BREAST CANCER SCREENING] Future Scheduled 2021-12-09 COLONOSCOPY SCREENING [facility] Test 13:56:39 [code = COLONOSCOPY SCREENING] Future Scheduled 2021-12-09 SHINGLES VACCINES (1 Met [facility] Test 13:56:39 of 2) [code = SHINGLES VACCINES (1 of 2)] Future Scheduled 2021-12-09 COVID-19 VACCINE (3 - [facility] Test 13:56:39 Booster for Moderna series) [code = COVID-19 VACCINE (3 - Booster for Moderna series)] Future Scheduled 2021-12-09 HEPATITIS B VACCINES Met [facility] Test 13:56:39 (1 of 3 - Risk 3-dose series) [code = HEPATITIS B VACCINES (1 of 3 - Risk 3-dose series)] Future Scheduled 2021-12-09 INFLUENZA VACCINE Method [facility] Test 13:56:39 [code = INFLUENZA VACCINE] Encounters Start End Encounter Admission Attending Care Care Encounter Source Date/Time Date/Time Type Type Clinicians Facility Department ID 2022 Outpatient SACHA Souza [facility] [id number] Common 07:49:00 Annalise 65780 [facility] 2022-03-25 Outpatient [place], STLMLC STLMLC [id number] Common 12:49:01 Annalise [facility] 2022-03-24 Outpatient [place], STLMLC STLMLC [id number] Common 11:16:01 Annalise [facility] 2022-03-23 Outpatient [place] STLMLC STLMLC [id number] - Common 15:33:00 a, Madhu [facility] 2021-10-13 Outpatient [place] STLMLC STLMLC [id number] - Common 14:25:01 a, Madhu [facility] 2021-05-06 Outpatient [place] STLMLC STLMLC [id number] - Common 14:30:56 a, Madhu [facility] 2021-05-06 Outpatient [place] STLMLC STLMLC [id number] - Common 14:26:04 a, Madhu 41809 [facility] 2021-05-06 Outpatient [place] STLMLC STLMLC [id number] - Common 14:05:28 a, Maduh 56640 [facility] 2021-05-06 Outpatient [place] STLMLC STLMLC [id number] - Common 13:37:29 a, Madhu 21350 [facility] 2021-05-06 Outpatient [place], STLMLC STLMLC [id number] Common 13:36:02 Annalise 53543 [facility] 2021-05-06 Outpatient [place], STLMLC STLMLC [id number] Common 11:25:36 Annalise 26905 [facility] 2021-02-09 Emergency [facility] [id number] Univers 02:25:27 [facility] 2022-04-15 2022-04-15 Emergency X [facility] [id number] Univers 20:21:00 22:43:00 ESTEPHANIA [facility] 2022-04-15 2022-04-15 Emergency [facility] 1.2.579.733 [id number] [id number] Univers 20:21:00 22:43:00 Estephania WHITT 350.1.13.10 i ty of Maulik PARRY 4.2.7.2.686 [facility] [phone] [address] 2022-04-09 2022-04-09 [facility] [id number] Univers 19:38:00 22:06:00 EMILY ity of [facility] 2022-04-09 2022-04-09 [facility] 1.2.182.732 [id number] [id number] Univers 19:38:00 22:06:00 Emily WHITT 350.1.13.10 ity federico PARRY 4.2.7.2.686 [facility] [phone] [address] 2022-03-17 2022-03-17 Documentat Ijir, 1.2.840.1 [id number] Methodi 00:00:00 00:00:[address] 449[address] 3.430.2.7 Hospit a .3.348153 l .8 2022-03-17 2022-03-17 Documentat Ijir, 1.2.840.1 [id number] 578 [id number] Methodi 00:00:00 00:00:[address] ion Rhoda 40614.1.[address] 3.430.2.7 Hospit a .3.482962 l .8 2022-02-25 2022-02-27 Emergency Rehrer, Stevo Raymundo 1.2.840.1 10 [id number] Methodi 12:36:00 18:45:00 Jeremy Sandoval 23397.1.[address] 3.430.2.7 Hospit a .3.451226 l .8 2022-02-25 2022-02-27 Emergency Rehrer, Stevo Raymundo 1.2.840.1 10 [id number] Methodi 12:36:00 18:45:00 Jeremy Sandoval 93954.1.[address] 3.430.2.7 Hospit a .3.091727 l .8 2022-02-25 2022-02-25 Travel 1.2.840.1 1.2.721.428 0701 369793 Methodi 00:00:00 00:00:[address] 3.430.2.7 0.2.7.3.698 Ho spita .3.665924 084.8 l .8 2022-02-25 2022-02-25 Travel 1.2.840.1 1.2.283.462 1913 155274 Methodi 00:00:00 00:00:[address] 3.430.2.7 0.2.7.3.698 Ho spita .3.566197 084.8 l .8 2022-02-15 2022-02-15 Emergency X [facility] ERT [id number] Univers 13:44:00 16:34:00 FLORIAN aburto [facility] 2022-02-15 2022-02-15 Emergency [facility] 1.2.074.596 [id number] [id number] Univers 13:44:00 16:34:00 Florian WHITT 350.1.13.10 i [facility] 4.2.7.2.686 [facility] [phone] [address] 2022-01-31 2022-02-04 [facility] Pettit 1.2.840.1 12120 1027 [id number] Methodi 18:11:00 16:36:00 Encounter Bebeto Ward 90642.1.[address] Li, [facility] 3.430.2.7 Hos alvaro .3.571061 l .8 2022-01-31 2022-02-04 [facility] Pettit 1.2.840.1 09776 1027 [id number] Methodi 18:11:00 16:36:00 Encounter Bebeto Ward 10570.1.[address] Li, Nakia 3.430.2.7 Hos alvaro .3.060033 l .8 2022-02-03 2022-02-03 Anesthesia Aziza Cordero 1.2.840.1 [id number] Methodi 14:37:00 15:02:00 Event Bebeto Heck 20004.1.[address] 3.430.2.7 Hospit a .3.515026 l .8 2022-02-03 2022-02-03 Anesthesia Aziza Cordero 1.2.840.1 [id number] Methodi 14:37:00 15:02:00 Event Bebeto Heck 56401.1.[address] 3.430.2.7 Hospit a .3.142591 l .8 2022-02-03 2022-02-03 Surgery Sanches, 1.2.840.1 [id number] 404349 0483 Methodi 14:30:00 15:00:00 [place]507.1.[address] 3.430.2.7 Hospit a .3.331153 l .8 2022-02-03 2022-02-03 Surgery Sanches, 1.2.840.1 [id number] 469926 3119 Methodi 14:30:00 15:00:00 [place] 33568.1.[address] 3.430.2.7 Hospit a .3.518132 l .8 2022-02-02 2022-02-02 Prep for Sanches, 1.2.840.1 [id number] 90379 98434 Methodi 00:00:00 00:00:00 Surgery Coe M. 43494.1.[address] 3.430.2.7 Hospit a .3.903632 l .8 2022-02-02 2022-02-02 Prep for Sanches, 1.2.840.1 [id number] 93432 53381 Methodi 00:00:00 00:00:00 Surgery Coe M. 06225.1.[address] 3.430.2.7 Hospit a .3.928371 l .8 2022-01-01 2022-01-06 [facility] 1.2.840 .1 [id number] Methodi 23:18:00 19:11:00 Encounter Nakia Cruz 02969.1.[address] Jeremy Sandoval 3.430.2.7 Hospita .3.279026 l .8 2022-01-01 2022-01-06 [facility] Vandana Bernstein 1.2.840 .1 [id number] Methodi 23:18:00 19:11:00 Encounter Nakia Cruz 68801.1.[address] Jeremy Sandoval 3.430.2.7 Hospita .3.222215 l .8 2022-01-05 2022-01-05 Surgery Duchini, 1.2.840.1 [id number] 58979 44751 Methodi 16:00:00 16:30:[address] 3.430.2.7 Hospit a .3.303208 l .8 2022-01-05 2022-01-05 Surgery Duchini, 1.2.840.1 [id number] 24122 45587 Methodi 16:00:00 16:30:[address] 3.430.2.7 Hospit a .3.283233 l .8 2022-01-05 2022-01-05 Anesthesia Handy Dietrich 1.2.840 .1 169454913 [id number] Methodi 15:55:00 16:18:00 Event Bebeto Heck 17392.1.[address] 3.430.2.7 Hospit a .3.797274 l .8 2022-01-05 2022-01-05 Anesthesia Handy Dietrich 1.2.840 .1 [id number] [id number] Methodi 15:55:00 16:18:00 Event Bebeto Heck 57356.1.[address] 3.430.2.7 Hospit a .3.305952 l .8 2022-01-02 2022-01-02 Travel 1.2.840.1 1.2.789.603 7476 959053 Methodi 00:00:00 00:00:[address] 3.430.2.7 0.2.7.3.698 Ho spita .3.193412 084.8 l .8 2022-01-02 2022-01-02 [facility] 1.2.840.1 1.2.032.526 4691 141983 Methodi 00:00:00 00:00:[address] 3.430.2.7 0.2.7.3.698 Ho spita .3.143387 084.8 l .8 2021-12-11 2021-12-18 [facility] 1.2.840.1 104 [id number] [id number] Methodi 16:59:00 17:46:00 Encounter Jeremy Sandoval 31481.1.[address] Ward, Bebeto 3.430.2.7 Hospita .3.835772 l .8 2021-12-11 2021-12-18 [facility] 1.2.840.1 104 962199 [id number] Methodi 16:59:00 17:46:00 Encounter Jeremy Sandoval 06453.1.[address] Ward, Bebeto 3.430.2.7 Hospita .3.556743 l .8 2021-11-26 2021-12-03 [facility] 1.2.840.1 99440 1027 [id number] Methodi 16:08:00 14:06:00 Encounter Jeremy Sandoval 91408.1.[address] Jose, Ahmed Sp 3.430.2.7 Hospita LiNakia .3.689693 l .8 2021-11-26 2021-12-03 [facility] 1.2.840.1 08475 1027 [id number] Methodi 16:08:00 14:06:00 Encounter Jeremy Sandoval 30090.1.[address] Jose, Ahmed Sp 3.430.2.7 Hospita Li Nakia .3.882541 l .8 2021-11-30 2021-11-30 Anesthesia Mahnaz Trujillo 1.2.840.1 1 20019591 [id number] Methodi 14:50:00 15:11:00 Event Feng Burgos 72975.1.[address] 3.430.2.7 Hospit a .3.229211 l .8 2021-11-30 2021-11-30 Anesthesia Mahnaz Trujillo 1.2.840.1 1 [id number] Methodi 14:50:00 15:11:00 Event Feng Burgos 16355.1.[address] 3.430.2.7 Hospit a .3.408528 l .8 2021-11-30 2021-11-30 Surgery Shivni, 1.2.840.1 [id number] 92831 65394 Methodi 14:30:00 15:00:[address] 3.430.2.7 Hospit a .3.467317 l .8 2021-11-30 2021-11-30 Surgery Duchini, 1.2.840.1 833553741 99028 65206 Methodi 14:30:00 15:00:[address] 3.430.2.7 Hospit a .3.167195 l .8 2021-10-21 2021-10-26 [facility] 1.2.840.1 [id number] Methodi 09:04:00 14:43:00 Encounter Nakia Cruz 81620.1.[address] Maite, Anandceline ShipleyTod 3.430.2.7 Hospita .3.033474 l .8 2021-10-21 2021-10-[facility] 1.2.840.1 [id number] Methodi 09:04:00 14:43:00 Encounter Nakia Cruz 09572.1.[address] Maite, Anand Tod 3.430.2.7 Hospita .3.430928 l .8 2021-10-23 2021-10-23 Surgery Duchini, 1.2.840.1 [id number] 51683 94771 Methodi 12:30:00 13:30:[address] 3.430.2.7 Hospit a .3.124657 l .8 2021-10-23 2021-10-23 Surgery Duchini, 1.2.840.1 248623334 84636 83507 Methodi 12:30:00 13:30:[address] 3.430.2.7 Hospit a .3.654954 l .8 2021-10-23 2021-10-23 Anesthesia Consuelo, Oya 1.2.840.1 175363403 [id number] Methodi 12:25:00 12:53:[address] 3.430.2.7 Hospit a .3.834570 l .8 2021-10-23 2021-10-23 Anesthesia Consuelo, Oya 1.2.840.1 [id number] [id number] Methodi 12:25:00 12:53:[address] 3.430.2.7 Hospit a .3.790654 l .8 2021-10-21 2021-10-21 Travel 1.2.840.1 1.2.786.083 7312 301091 Methodi 00:00:00 00:00:[address] 3.430.2.7 0.2.7.3.698 Ho spita .3.565447 084.8 l .8 2021-10-21 2021-10-21 Travel 1.2.840.1 1.2.068.313 6456 578043 Methodi 00:00:00 00:00:[address] 3.430.2.7 0.2.7.3.698 Ho spita .3.306292 084.8 l .8 2021-09-28 2021-09-29 Emergency X Sukhdev SOTO [facility] ERT [id number] 6006 Univers 22:03:00 00:15:00 ity of [facility] 2021-09-28 2021-09-29 Emergency Sukhdev Soto [facility] 1.2.840.114 94 [id number] Univers 22:03:00 00:15:00 Mary NUBIAEMMA 350.1.13.10 i ty of [place] [phone] [facility] [address] 2021-09-28 2021-09-28 Orders Doctor VERONIQUE 1.2.840.114 [id number] Univers 00:00:00 00:00:00 Only Unassigned, GONZALO 350.1.13.10 ity of [place] [facility] 4.2.7.2.686 Quang as [phone] [facility] [address] 2021-04-07 2021-04-07 Letter Orthopedic [facility] 1.2.840.114 900 42554 Univers 00:00:00 00:00:00 (Out) Clinic SPECIALTY 350.1.13.10 ity of [facility] [place].2.[place] [phone] [address] 2021-04-02 2021-04-02 Emergency X [facility] [id number] Univers 12:58:00 15:25:00 FOLUSHO ity of [facility] 2021-04-02 2021-04-02 [facility] 1.2.840.114 89 [id number] Univers 12:58:00 15:25:00 Azalea WHITT 350.1.13.10 ity of [facility] [place].7.2.[place] [phone] [facility] [address] 2021-03-11 2021-03-11 Telephone VERONIQUE Cruz 1.2.991.876 8601 9674 Univers 00:00:00 00:00:00 Frances SÁNCHEZ 350.1.13.10 it y of HOSPITAL 4.2.7.2.686 Quang as [id number] [facility] [address] 2021-03-10 2021-03-10 Outpatient Sami SHEFFIELD [facility] [id number] 037 Univers 14:45:00 14:51:40 LEXIE ity of [facility] 2021-03-10 2021-03-10 Laboratory Only, Ang Db Test [facility] 1.2.8 40.114 [id number] Univers 14:29:53 14:44:53 Only Unknown, Attending HEALTH 350.1.13.10 ity [facility] 4.2.7.2.686 Quang as MARINA?BLEA [phone] Pr dical [address] MEDICAL OFFICE BUILDING 2021-03-10 2021-03-10 Orders Doctor VERONIQUE 1.2.840.114 [id number] Univers 00:00:00 00:00:00 Only Unassigned, GONZALO 350.1.13.10 ity of [place] [facility] 4.2.7.2.686 Quang as [phone] [facility] [address] 2021-02-18 2021-02-20 [facility] Sharita Suresh 1.2.840.1 [id number] Methodi 15:45:00 14:08:00 Encounter Jeremy Sandoval 42334.1.[address] 3.430.2.7 Hospit a .3.128014 l .8 2021-02-03 2021-02-04 Emergency X [facility] ERT [id number] Univers 21:10:00 03:21:00 GARTH ity of [facility] 2020-10-21 2020-10-27 Inpatient SYLVIA, [facility] 064 [id number] 4530 [place] 00:00:00 00:00:[address] 2020-10-06 2020-10-06 Transition Jocelyne Taylor 1.2.840.114 853 72376 Univers 00:00:00 00:00:00 of Care Madiha Sotelo 350.1.13.10 i ty of [place]2.[place] [phone] [facility] 403 [address] 2020-09-28 2020-10-03 Hospital Rene Evans [facility] 1.2.840. 114 [id number] Univers 22:23:00 13:05:00 Encounter Shaina Pinto 350.1.13.10 ity of [place] 4[place]2.7.2.686 [place] [facility] [phone] [facility] 081 [address] 2020-09-28 2020-09-28 Orders Doctor VERONIQUE 1.2.840.114 [id number] [facility] 00:00:00 00:00:00 Only Unassigned, GONZALO 350.1.13.10 ity of [facility] 4.2.7.2.686 Quang as [id number] [facility] 009 Branch 2020-09-09 2020-09-12 Inpatient NAKIA CRUZ [facility] 064 [id number] 39927 [place] 00:00:00 00:00:00 462 Method i 2020-08-08 2020-08-08 Outpatient R MONSERRAT, [facility] [id number] 80311 Univers 15:40:00 15:40:00 TERRI ity [facility] 2020-07-11 2020-07-11 Outpatient [facility] [id number] Univers 15:40:00 15:40:00 ity [facility] 2020-06-09 2020-06-22 Inpatient NAKIA CRUZ [facility] 064 [id number] [place] 00:00:00 00:00:00 836 Method i 2020-03-19 2020-03-23 Inpatient DINAKAR, [facility] 484 [id number] 848 [place] 00:00:00 00:00:00 JEREMY 742 Method i 2020-03-14 2020-03-18 Inpatient DINAKAR, [facility] 044 [id number] 585 [place] 00:00:00 00:00:00 JEREMY 157 Method i 2020-02-13 2020-02-13 Laboratory Lab, [facility] Fam Pob I [facility] 1.2. 840.114 [id number] [facility] 10:22:10 10:42:10 Only Dulce [facility] 350.1.13.10 ity of [place] 4.2.7.2.686 Quang as Professkourtney [phone] [address] Office [facility] One 2020-02-13 2020-02-13 Laboratory Lab, [facility] 1.2.840.114 [id number] 10:22:10 10:42:10 Only Fam Pob I Health 350.1.13.10 [place] 4.2.7.2.686 [facility] [phone] nal [address] One 2019-09-28 2019-09-28 Outpatient Jackeline Barrioslucianapb 31 07776 Common 09:00:00 09:00:00 t Bone Bone and Spiri t and Joint Joint - [facility] 2019-09-18 2019-09-18 Outpatient Jackeline Barrioslucianat 30 93621 Common 09:30:00 09:30:00 t Bone Bone and Spiri t and Joint Joint - [facility] 2019-08-14 2019-08-14 Transition Jocelyne Alexandra 1.2.840.114 754 11041 Univers 00:00:00 00:00:00 of Care Jovanny Coopery 350.1.13.10 ity of [place]2.[place] [phone] [facility] 403 [address] 2019-08-14 2019-08-14 Transition Jocelyne Alexandra 1.2.840.114 754 11908 00:00:00 00:00:00 of Care Jovanny Souza [place] 350.1.13.10 [place] 4.2.7.2.686 [id number] 403 2019-08-10 2019-08-11 Inpatient U [facility] [id number] Univers 02:55:00 16:09:00 ADNAN ity [facility] 2019-08-10 2019-08-11 [facility] 1.2.850.497 6853 4528 Univers 02:55:00 16:09:00 Encounter Adnan [place] 350.1.13.10 ity [place]2.[place] [phone] [facility] 081 Branch 2019-08-10 2019-08-11 [facility] 1.2.747.799 [id number] 4528 02:55:00 16:09:00 Encounter Adnan [place] 350.1.13.10 [place] 4.2.7.2.686 Centre [id number] 081 Results Test Description Test Time Test Comments Results Result Comments Source CBC with Differential 2022-04-16 03:42:09 Test Item Value Reference Range Interpretation Comme nts WBC (test code = 6690-2) See_Comment L [A utomated message] The system which [employer] nerated this result transmit josemanuel reference range: 4.30 - 1 1.10 10*3/?L. The reference r davi was not used to interpr et this result as normal/abnor mal. RBC (test code = 789-8) See_Comment L [Au tomated message] The system which ge nerated this result transmit josemanuel reference range: 3.93 - 5 .25 10*6/?L. The reference r davi was not used to interpr et this result as normal/abnor mal. HGB (test code = 718-7) 9.2 g/dL 11.6-15.0 L HCT (test code = 4544-3) 30.7 % 35.7-45.2 L MCV (test code = 787-2) 85.0 fL 80.6-95.5 MCH (test code = 785-6) 25.5 pg 25.9-32.8 L MCHC (test code = 786-4) 30.0 g/dL 31.6-35.1 L RDW-SD (test code = 78327-7) 52.8 fL 39.0-49.9 H RDW-CV (test code = 788-0) 17.0 % 12.0-15.5 H PLT (test code = 777-3) See_Comment L [Au tomated message] The system which ge nerated this result transmit josemanuel reference range: 166 - 35 8 10*3/?L. The reference range was not used to interpret th is result as normal/abnormal . MPV (test code = 05785-1) 9.8 fL 9.5-12.9 IPF % (test code = 2.5 % 1.3-7.7 Platelet count measured by 0358401951) fluorescence me thod. NRBC/100 WBC (test code = See_Comment [ Automated message] The 1113454213) system which [employer] nerated this result transmit josemanuel reference range: 0.0 - 10 .0 /100 WBCs. The reference r davi was not used to interpr et this result as normal/abnor mal. NRBC x10^3 (test code = See_Comment [Au tomated message] The 0143269257) system which ge nerated this result transmit josemanuel reference range: 10*3/?L. The reference range was not u sed to interpret this result as normal/abnormal . GRAN MAT (NEUT) % (test code 63.3 % = 770-8) IMM GRAN % (test code = 0.30 % 1369109099) LYMPH % (test code = 736-9) 18.7 % MONO % (test code = 5905-5) 14.5 % EOS % (test code = 713-8) 2.6 % BASO % (test code = 706-2) 0.6 % GRAN MAT x10^3(ANC) (test 1.96 10*3/uL 1.88-7.09 code = 6815022306) IMM GRAN x10^3 (test code = 0.00-0.06 7164241629) LYMPH x10^3 (test code = 0.58 10*3/uL 1.32-3.29 L 731-0) MONO x10^3 (test code = 0.45 10*3/uL 0.33-0.92 742-7) EOS x10^3 (test code = 0.08 10*3/uL 0.03-0.39 711-2) BASO x10^3 (test code = 0.01-0.07 704-7) BASO STIPPLING (test code = Present A 703-9) PLT ESTIMATE (test code = Decreased Normal A 9317-9) Lab Interpretation (test Abnormal code = 43005-8) [facility] [id number] 03:26:02 Test Item Value Reference Interpretation Comments Range TROPONIN I (test 0.003 ng/mL See_Comment [Automated code = 5584164460) message] The system which generated this result transmitted reference range : <=0.034. The reference range was not used to interpret this result as normal/abnormal . SNOW (test code = Reference (Normal) SNOW) Range (defined by the 99th percentile reference limit): <= 0.034 ng/mL Note: Cardiac troponin begins to rise 3-4 hours after the onset of ischemia. Repeat in 4-6 hours if the sample was drawn within 3-4 hours of the onset of the symptom and found normal. Diagnosis of myocardial injury is made with acute changes in cTn concentrations with at least one serial sample above the 99th percentile upper reference limit (URL), taken together with the patient's clinical presentation. Biotin has been reported to cause a negative bias, interpret results relative to patient's use of biotin. Lab Interpretation Normal (test code = 49470-8) [facility] [id number] 03:23:01 Test Item Value Reference Range Interpretation Comments NT-proBNP (test code 36 pg/mL See_Comment [Autom ated = 9043150322) message] The system which generated this result transmitted reference range : <=125. The reference range was not used to interpret this result as normal/abnormal . SNOW (test code = SNOW) Biotin has been reported to cause a negative bias, interpret results relative to patient's use of biotin. Lab Interpretation Normal (test code = 61744-2) [facility] (NA, K, CL, CO2, GLUCOSE, BUN, CREATININE, CA)2022-04-16 03:14:42 Test Item Value Reference Range Interpretation Comments NA (test code = 138 mmol/L 135-145 7213144095) K (test code = 4.8 mmol/L 3.5-5.0 6516848311) CL (test code = 110 mmol/L 98-108 H 2427719386) CO2 TOTAL (test code = 22 mmol/L 23-31 L 7134900465) AGAP (test code = 2-16 4062776363) BUN (test code = 15 mg/dL 7-23 9695528060) GLUCOSE (test code = 90 mg/dL 70-110 8895160886) CREATININE (test code = 0.49 mg/dL 0.50-1.04 L 6322479515) CALCIUM (test code = 7.9 mg/dL 8.6-10.6 L 3550176216) eGFR (test code = mL/min/1.73m2 3994153532) SNOW (test code = SNOW) Association of [...] tests). Lab Interpretation Abnormal (test code = 03568-7) [facility] ([facility]B, T.PRO, BILI T, BU/BC, ALT, AST, ALK PHOS)2022-04-16 03:14:22 Test Item Value Reference Range Interpretation Comments TOTAL BILI (test code = 7253740305) 1.5 mg/dL 0.1-1.1 H BILI UNCON (test code = 0156821411) 1.2 mg/dL 0.1-1.1 H BILI CONJ (test code = 1744969642) 0.0 mg/dL 0.0-0.3 T PROTEIN (test code = 1157646675) 6.5 g/dL 6.3-8.2 ALBUMIN (test code = 9958369770) 3.4 g/dL 3.5-5.0 L ALK PHOS (test code = 9765145300) 162 U/L 34-122 H ALTv (test code = 1742-6) 50 U/L 5-35 H AST(SGOT) (test code = 8802934585) 64 U/L 13-40 H Lab Interpretation (test code = Abnormal 22613-9) [facility] WITH [id number] 02:57:34 Test Item Value Reference Range Interpretation Comments [...] as normal/abnormal . HGB (test code = 8.6 g/dL 11.6-15.0 L 718-7) HCT (test code = 28.7 % 35.7-45.2 L 4544-3) MCV (test code = 87.0 fL 80.6-95.5 787-2) MCH (test code = 26.1 pg 25.9-32.8 785-6) MCHC (test code = 30.0 g/dL 31.6-35.1 L 786-4) RDW-SD (test code = 52.2 fL 39.0-49.9 H 71521-3) RDW-CV (test code = 16.7 % 12.0-15.5 H 788-0) PLT (test code = See_Comment L [Automated 777-3) message] The sy stem which generated this result transmitted reference range : 166 - 358 10*3/ ?L. The reference r davi was not used to interpret this result as normal/abnormal . MPV (test code = 11.4 fL 9.5-12.9 73409-6) NRBC/100 WBC (test See_Comment [Automat ed code = 8811021682) message] The system which generated this result transmitted reference range : 0.0 - 10.0 /100 WBCs. The refer ence range was not u sed to interpret th is result as normal/abnormal . NRBC x10^3 (test code See_Comment [Auto mated = 5902996774) message] The s ystem which generated this result transmitted reference range : 10*3/?L. The reference range was not used to interpret this result as normal/abnormal . GRAN MAT (NEUT) % 62.2 % (test code = 770-8) IMM GRAN % (test code 0.80 % = 8977278101) LYMPH % (test code = 20.2 % 736-9) MONO % (test code = 14.7 % 5905-5) EOS % (test code = 1.7 % 713-8) BASO % (test code = 0.4 % 706-2) GRAN MAT x10^3(ANC) 1.48 10*3/uL 1.88-7.09 L (test code = 7178871982) IMM GRAN x10^3 (test 0.00-0.06 code = 9990623006) LYMPH x10^3 (test code 0.48 10*3/uL 1.32-3.29 L = 731-0) MONO x10^3 (test code 0.35 10*3/uL 0.33-0.92 = 742-7) EOS x10^3 (test code = 0.04 10*3/uL 0.03-0.39 711-2) BASO x10^3 (test code 0.01-0.07 = 704-7) PLT ESTIMATE (test Decreased Normal A code = 9317-9) Lab Interpretation Abnormal (test code = 31117-8) [facility] / [id number] 02:35:10 Test Item Value Reference Range Interpretation Comments PROTIME PATIENT (test See_Comment H [Auto mated message] code = 5964-2) The system [facility] generated this result transmitted ref erence range: 12.0 - 1 4.7 Seconds. The reference range was not used to int erpret this result as normal/abnormal . INR (test code = 6301-6) Nor mal INR <1.1; Warfarin Therap eutic range 2.0 to 3. 0 or 2.5 to 3.5, dep ending upon the indica tions. Lab Interpretation (test Abnormal code = 67097-9) [facility] ([id number])2022-04-10 02:34:50 Test Item Value Reference Range Interpretation Comments NA (test code = 140 mmol/L 135-145 7802218160) K (test code = 4.4 mmol/L 3.5-5.0 0712686126) CL (test code = 111 mmol/L 98-108 H 1194087248) CO2 TOTAL (test code = 23 mmol/L 23-31 3775440770) AGAP (test code = 2-16 3660456421) BUN (test code = 13 mg/dL 7-23 5835251186) GLUCOSE (test code = 86 mg/dL 70-110 5915330381) CREATININE (test code = 0.62 mg/dL 0.50-1.04 2908790875) TOTAL BILI (test code = 1.6 mg/dL 0.1-1.1 H 6283000088) CALCIUM (test code = 7.6 mg/dL 8.6-10.6 L 6733003235) T PROTEIN (test code = 6.3 g/dL 6.3-8.2 3109486887) ALBUMIN (test code = 3.3 g/dL 3.5-5.0 L 1484175459) ALK PHOS (test code = 160 U/L 34-122 H 5026697712) ALTv (test code = 46 U/L 5-35 H 1742-6) AST(SGOT) (test code = 58 U/L 13-40 H 7995303940) eGFR (test code = mL/min/1.73m2 0797084769) SNOW (test code = SNOW) Association of [...] tests). Lab Interpretation Abnormal (test code = 11296-1) [facility] 02:34:50 Test Item Value Reference Range Interpretation Comments MAGNESIUM (test code = 4175090726) 1.8 mg/dL 1.7-2.4 Lab Interpretation (test code = Normal 01277-7) [facility] [id number] 02:34:29 Test Item Value Reference Range Interpretation Comments CK (test code = 0974570323) 105 U/L 33-194 Lab Interpretation (test code = Normal 09028-9) [facility], SEQRYU7558-94-45 02:33:54 Test Item Value Reference Range Interpretation Comments AMMONIA (test code = 4390871458) 90 umol/L 9-33 H Lab Interpretation (test code = Abnormal 36977-4) [facility] urajqoc4373-05-89 09:39:00 Test Item Value Reference Range Interpretation Comments POC glucose (test code = 107 mg/dL 65-99 H Ope rator Name: Aris 88716-9) SaraDevice ID: [id number] able: [facility] Notified sweet dough mixer Interpretation (test Abnormal code = 34184-7) [facility] wjknmfd3335-85-23 09:39:00 Test Item Value Reference Range Interpretation Comments POC glucose (test code = 107 mg/dL 65-99 H Ope rator Name: Aris 65746-0) SaraDevice ID: [id number] able: TM Notified sweet dough mixer Interpretation (test Abnormal code = 52523-9) [facility] eyjornh1541-20-85 09:39:00 Test Item Value Reference Range Interpretation Comments POC glucose (test code = 107 mg/dL 65-99 H Ope rator Name: Aris 37360-1) SaraDevice ID: [id number] able: [facility] Notified sweet dough mixer Interpretation (test Abnormal code = 89626-0) [facility] eikqbtg8002-75-75 09:39:00 Test Item Value Reference Range Interpretation Comments POC glucose (test code = 107 mg/dL 65-99 H Ope rator Name: Aris 79497-4) SaraDevice ID: [id number] able: [facility] Notified sweet dough mixer Interpretation (test Abnormal code = 23435-0) [address]2022-11-18 02:51:50 Test Item Value Reference Range Interpretation Comments Ventricular rate (test code = 253) Atrial rate (test code = 255) KS interval (test code = 266) QRSD interval (test code = 260) QT interval (test code = 264) QTC interval (test code = 265) P axis 1 (test code = 267) QRS axis 1 (test code = 268) T wave axis (test code = 270) EKG impression (test Normal sinus code = 273) rhythm-Right bundle branch block-Abnormal ECG-- [address]2022-11-18 02:51:50 Test Item Value Reference Range Interpretation Comments Ventricular rate (test code = 253) Atrial rate (test code = 255) KS interval (test code = 266) QRSD interval (test code = 260) QT interval (test code = 264) QTC interval (test code = 265) P axis 1 (test code = 267) QRS axis 1 (test code = 268) T wave axis (test code = 270) EKG impression (test Normal sinus code = 273) rhythm-Right bundle branch block-Abnormal ECG-- [address]2022-11-18 02:51:50 Test Item Value Reference Range Interpretation Comments Ventricular rate (test code = 253) Atrial rate (test code = 255) KS interval (test code = 266) QRSD interval (test code = 260) QT interval (test code = 264) QTC interval (test code = 265) P axis 1 (test code = 267) QRS axis 1 (test code = 268) T wave axis (test code = 270) EKG impression (test Normal sinus code = 273) rhythm-Right bundle branch block-Abnormal ECG-- [facility] 12 [id number] 02:51:50 Test Item Value Reference Range Interpretation Comments Ventricular rate (test code = 253) Atrial rate (test code = 255) KS interval (test code = 266) QRSD interval (test code = 260) QT interval (test code = 264) QTC interval (test code = 265) P axis 1 (test code = 267) QRS axis 1 (test code = 268) T wave axis (test code = 270) EKG impression (test Normal sinus code = 273) rhythm-Right bundle branch block-Abnormal ECG-- [facility] ED Preliminary Interpretation - Not an [id number] 20:37:40 Test Item Value Reference Range Interpretation Comments SNOW (test code = SNOW) Stevo Hoskins DO 02/28/2022 12:23 [facility] [place] Interpretation - Not an OrderPerformed by: Stevo Hoskins DOAuthorized by: Stevo Hoskins DO ECG reviewed by ED Physician in the absence of a general scrap worker: yes Interpretation: Interpretation: abnormal Rate: ECG rate: 70 ECG rate assessment: normal Rhythm: Rhythm: sinus rhythm Ectopy: Ectopy: none QRS: QRS axis: Normal QRS intervals: WideConduction: Conduction: abnormal Abnormal conduction: complete RBBB ST segments: ST segments: NormalT waves: T waves: non-specific Lab Interpretation Abnormal (test code = 43069-2) [facility] ED Preliminary Interpretation - Not an [id number] 20:37:40 Test Item Value Reference Range Interpretation Comments SNOW (test code = SNOW) Stevo Hoskins DO 02/28/2022 12:23 [facility] Preliminary Interpretation - Not an OrderPerformed by: Stevo Hoskins DOAuthorized by: Stevo Hoskins DO ECG reviewed by ED Physician in the absence of a general scrap worker: yes Interpretation: Interpretation: abnormal Rate: ECG rate: 70 ECG rate assessment: normal Rhythm: Rhythm: sinus rhythm Ectopy: Ectopy: none QRS: QRS axis: Normal QRS intervals: WideConduction: Conduction: abnormal Abnormal conduction: complete RBBB ST segments: ST segments: NormalT waves: T waves: non-specific Lab Interpretation Abnormal (test code = 59014-0) [facility] ED Preliminary Interpretation - Not an Gobwt4634-79-12 20:37:40 Test Item Value Reference Range Interpretation Comments SNOW (test code = SNOW) Stevo Hoskins DO 02/28/2022 12:23 [facility] Preliminary Interpretation - Not an OrderPerformed by: Stevo Hoskins DOAuthorized by: Stevo Hoskins DO ECG reviewed by ED Physician in the absence of a general scrap worker: yes Interpretation: Interpretation: abnormal Rate: ECG rate: 70 ECG rate assessment: normal Rhythm: Rhythm: sinus rhythm Ectopy: Ectopy: none QRS: QRS axis: Normal QRS intervals: WideConduction: Conduction: abnormal Abnormal conduction: complete RBBB ST segments: ST segments: NormalT waves: T waves: non-specific Lab Interpretation Abnormal (test code = 49279-0) [facility] ED Preliminary Interpretation - Not an Cgqrc7957-21-21 20:37:40 Test Item Value Reference Range Interpretation Comments SNOW (test code = SNOW) Stevo Hoskins DO 02/28/2022 12:23 [facility] Preliminary Interpretation - Not an OrderPerformed by: Stevo Hoskins DOAuthorized by: Stevo Hoskins DO ECG reviewed by ED Physician in the absence of a general scrap worker: yes Interpretation: Interpretation: abnormal Rate: ECG rate: 70 ECG rate assessment: normal Rhythm: Rhythm: sinus rhythm Ectopy: Ectopy: none QRS: QRS axis: Normal QRS intervals: WideConduction: Conduction: abnormal Abnormal conduction: complete RBBB ST segments: ST segments: NormalT waves: T waves: non-specific Lab Interpretation Abnormal (test code = 06786-0) [facility] JvliuflrIRDJ-WwX-3 (COVID-19) RNA [Presence] in Respiratory specimen by HELENA with probe maysqbtzj5115-61-97 18:28:31 Test Item Value Reference Range Interpretation Comments SARS-CoV-2 (COVID-19) RNA Not detected [Presence] in Respiratory specimen by HELENA with probe detection (test code = 34553-9) 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 employed in a Unknown healthcare setting (test code = 32205-7) Whether the patient has symptoms Unknown related to condition of interest (test code = 17733-6) Whether the patient was Unknown hospitalized for condition of interest (test code = 75569-3) Whether the patient was admitted Unknown to intensive care unit (ICU) for condition of interest (test code = 66838-1) Whether patient resides in a Unknown congregate care setting (test code = 38378-5) status (test code = Unknown 11760-2) Date and time of symptom onset Unknown (test code = 43375-9) [facility] WITH [id number] 21:35:39 Test Item Value Reference Range Interpretation Comments WBC (test code = See_Comment L [Automated 6690-2) message] The sy stem which generated this result transmitted reference range : 4.30 - 11.10 10*3/?L. The reference range was not used to interpret this result as normal/abnormal . RBC (test code = See_Comment L [Automated 479-8) message] The sy stem which generated this [...] (test code = 53.7 fL 39.0-49.9 H 51841-9) RDW-CV (test code = 17.0 % 12.0-15.5 H 788-0) PLT (test code = See_Comment L [Automated 777-3) message] The sy stem which generated this result transmitted reference range : 166 - 358 10*3/ ?L. The reference r davi was not used to interpret this result as normal/abnormal . MPV (test code = 9.8 fL 9.5-12.9 79028-5) IPF % (test code = 2.2 % 1.3-7.7 Platelet count 5032825869) measured by fluorescence method. NRBC/100 WBC (test See_Comment [Automat ed code = 2686577825) message] The system which generated this result transmitted reference range : 0.0 - 10.0 /100 WBCs. The refer ence range was not u sed to interpret th is result as normal/abnormal . NRBC x10^3 (test code See_Comment [Auto mated = 5134559310) message] The s ystem which generated this result transmitted reference range : 10*3/?L. The reference range was not used to interpret this result as normal/abnormal . SEG % (test code = 60 % 33-76 71100-4) BAND % (test code = 3 % 0-1 H 99624-0) LYMPH % (test code = 23 % 14-54 85705-6) MONO % (test code = 12 % 0-4 H 31742-5) EOS % (test code = 2 % 0-3 82966-4) ANC (test code = 1.38 10*3/uL 1.88-7.09 L 753-4) PLT ESTIMATE (test Decreased Normal A code = 9317-9) Lab Interpretation Abnormal (test code = 36554-5) [facility]. METABOLIC PANEL (33644)2022-02-15 20:44:39 Test Item Value Reference Range Interpretation Comments NA (test code = 137 mmol/L 135-145 8138219071) K (test code = 3.8 mmol/L 3.5-5.0 4627317287) CL (test code = 107 mmol/L 98-108 2776367075) CO2 TOTAL (test code = 25 mmol/L 23-31 2964461344) AGAP (test code = 2-16 8956021889) BUN (test code = 11 mg/dL 7-23 8609925563) GLUCOSE (test code = 103 mg/dL 70-110 0864349294) CREATININE (test code = 0.53 mg/dL 0.50-1.04 8419711212) TOTAL BILI (test code = 1.9 mg/dL 0.1-1.1 H 7667392052) CALCIUM (test code = 8.2 mg/dL 8.6-10.6 L 3586477374) T PROTEIN (test code = 6.4 g/dL 6.3-8.2 2481812552) ALBUMIN (test code = 3.4 g/dL 3.5-5.0 L 8551458595) ALK PHOS (test code = 146 U/L 34-122 H 3918506026) ALTv (test code = 40 U/L 5-35 H 1742-6) AST(SGOT) (test code = 52 U/L 13-40 H 3954156788) eGFR (test code = mL/min/1.73m2 1378019926) SNOW (test code = SNOW) Association of [...] tests). Lab Interpretation Abnormal (test code = 71765-3) [facility]44:19 Test Item Value Reference Range Interpretation Comments LIPASE (test code = 8391546116) 298 U/L 0-220 H Lab Interpretation (test code = Abnormal 80963-8) [facility] ouoohjw5804-55-88 03:08:00 Test Item Value Reference Range Interpretation Comments Urine culture (test SEE COMMENT Bacteriu bartolo screen code = 6537220) negative. [facility] tpejefd2938-82-31 03:08:00 Test Item Value Reference Range Interpretation Comments Urine culture (test SEE COMMENT Bacteriu bartolo screen code = 2765006) negative. [facility] ihlzyqn7556-35-84 03:08:00 Test Item Value Reference Range Interpretation Comments Urine culture (test SEE COMMENT Bacteriu bartolo screen code = 0084240) negative. [facility] dsdasov6242-44-87 03:08:00 Test Item Value Reference Range Interpretation Comments Urine culture (test SEE COMMENT Bacteriu bartolo screen code = 0343355) [facility]. [facility] RNA [Presence] in Respiratory specimen by HELENA with probe wyanurpqf6152-35-70 02:16:27 Test Item Value Reference Range Interpretation Comments SARS-CoV-2 (COVID-19) RNA Not detected [Presence] in Respiratory specimen by HELENA with probe detection (test code = 53549-4) 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 employed in a Unknown healthcare setting (test code = 84675-4) Whether the patient has symptoms Unknown related to condition of interest (test code = 24872-2) Whether the patient was Unknown hospitalized for condition of interest (test code = 04427-3) Whether the patient was admitted Unknown to intensive care unit (ICU) for condition of interest (test code = 13596-6) Whether patient resides in a Unknown congregate care setting (test code = 76643-9) status (test code = Unknown 16894-8) Date and time of symptom onset Unknown (test code = 06107-0) [facility] oianqic2778-65-70 22:22:49 Test Item Value Reference Range Interpretation Comments Case number (test code = [id number]) Surgical pathology See link below for report (test code = PDF Lab Report 2255) Result status (test code This is Final Report = [id number]) for [address] pathology [id number] 22:22:49 Test Item Value Reference Range Interpretation Comments Case number (test code = [id number]) Surgical pathology See link below for report (test code = PDF Lab Report 2255) Result status (test code This is Final Report = 5102895) for [address] pathology [id number] 22:22:49 Test Item Value Reference Range Interpretation Comments Case number (test code = [id number]) Surgical pathology See link below for report (test code = PDF Lab Report 2255) Result status (test code This is Final Report = [id number]) for [address] pathology ewavxot7333-09-08 22:22:49 Test Item Value Reference Range Interpretation Comments Case number (test code = [id number]) Surgical pathology See link below for report (test code = PDF Lab Report 2255) Result status (test code This is Final Report = 7582959) for [address] pathology dfmiiti0360-75-10 22:22:49 Test Item Value Reference Range Interpretation Comments Case number (test code = [id number]) Surgical pathology See link below for report (test code = PDF Lab Report 2255) Result status (test code This is Final Report = [id number]) for [address] pathology [id number] 22:22:49 Test Item Value Reference Range Interpretation Comments Case number (test code = [id number]) Surgical pathology See link below for report (test code = PDF Lab Report 2255) Result status (test code This is Final Report = [id number]) for [address] meovdrz8149-17-27 17:57:00 Test Item Value Reference Range Interpretation Comments POC glucose (test code = 121 mg/dL 65-99 H Ope rator Name: 46924-7) Rustam Elaine vice ID: [id number] able: [facility] Notified sweet dough mixer Interpretation (test Abnormal code = 92434-9) [facility] sgifwij8961-65-48 17:57:00 Test Item Value Reference Range Interpretation Comments POC glucose (test code = 121 mg/dL 65-99 H Ope rator Name: 87243-2) Rustam Elaine vice ID: [id number] able: [facility] Notified sweet dough mixer Interpretation (test Abnormal code = 78650-9) [facility] fdhipnm5355-72-50 11:53:00 Test Item Value Reference Range Interpretation Comments Urine culture (test SEE COMMENT Bacteriu bartolo screen code = 6831628) negative. [facility] ukfyepg2535-67-67 11:53:00 Test Item Value Reference Range Interpretation Comments Urine culture (test SEE COMMENT Bacteriu bartolo screen code = 6863507) negative. [facility] RNA [Presence] in Respiratory specimen by HELENA with probe ekvysyohw9558-52-30 08:30:51 Test Item Value Reference Range Interpretation Comments SARS-CoV-2 (COVID-19) RNA Not detected [Presence] in Respiratory specimen by HELENA with probe detection (test code = 62254-5) 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 employed in a Unknown healthcare setting (test code = 37417-4) Whether the patient has symptoms Unknown related to condition of interest (test code = 45121-3) Whether the patient was Unknown hospitalized for condition of interest (test code = 16478-4) Whether the patient was admitted Unknown to intensive care unit (ICU) for condition of interest (test code = 66014-3) Whether patient resides in a Unknown congregate care setting (test code = 97112-0) status (test code = Unknown 08134-7) Date and time of symptom onset Unknown (test code = 55394-8) [facility] 12 rnki4550-38-36 12:19:45 Test Item Value Reference Range Interpretation Comments Ventricular rate (test code = 253) Atrial rate (test code = 255) KS interval (test code = 266) QRSD interval [...] of 26-NOV-2021 19:29,-No significant change was found- [address]2022-09-03 12:19:45 Test Item Value Reference Range Interpretation Comments Ventricular rate (test code = 253) Atrial rate (test code = 255) KS interval (test code = 266) QRSD interval [...] of 26-NOV-2021 19:29,-No significant change was found- [address]2022-09-03 12:19:45 Test Item Value Reference Range Interpretation Comments Ventricular rate (test code = 253) Atrial rate (test code = 255) KS interval (test code = 266) QRSD interval [...] of 26-NOV-2021 19:29,-No significant change was found- [facility] ED Preliminary Interpretation - Not an Cgvbr8275-40-99 05:33:45 Test Item Value Reference Range Interpretation Comments SNOW (test code = SNOW) Stevo Hoskins DO 12/13/2021 12:08 [facility] Preliminary Interpretation - Not an OrderPerformed by: Stevo Hoskins DOAuthorized by: Stevo Hosikns DO ECG reviewed by ED Physician in the absence of a general scrap worker: yes Previous ECG: Previous ECG: UnavailableInterpretat ion: Interpretation: abnormal Rate: ECG rate: 63 ECG rate assessment: normal Rhythm: Rhythm: sinus rhythm Ectopy: Ectopy: none QRS: QRS axis: Normal QRS intervals: NormalConduction: Conduction: abnormal Abnormal conduction: complete RBBB ST segments: ST segments: NormalT waves: T waves: non-specific Lab Interpretation Abnormal (test code = 39793-4) [facility] ED Preliminary Interpretation - Not an Urqix6405-69-63 05:33:45 Test Item Value Reference Range Interpretation Comments SNOW (test code = SNOW) Stevo Hoskins DO 12/13/2021 12:08 [facility] Preliminary Interpretation - Not an OrderPerformed by: Stevo Hoskins DOAuthorized by: Stevo Hoskins DO ECG reviewed by ED Physician in the absence of a general scrap worker: yes Previous ECG: Previous ECG: UnavailableInterpretat ion: Interpretation: abnormal Rate: ECG rate: 63 ECG rate assessment: normal Rhythm: Rhythm: sinus rhythm Ectopy: Ectopy: none QRS: QRS axis: Normal QRS intervals: NormalConduction: Conduction: abnormal Abnormal conduction: complete RBBB ST segments: ST segments: NormalT waves: T waves: non-specific Lab Interpretation Abnormal (test code = 22995-2) [facility] ED Preliminary Interpretation - Not an Cbkfj1754-32-76 05:33:45 Test Item Value Reference Range Interpretation Comments SNOW (test code = SNOW) Stevo Hoskins DO 12/13/2021 12:08 [facility] Preliminary Interpretation - Not an OrderPerformed by: Stevo Hoskins DOAuthorized by: Stevo Hoskins DO ECG reviewed by ED Physician in the absence of a general scrap worker: yes Previous ECG: Previous ECG: UnavailableInterpretat ion: Interpretation: abnormal Rate: ECG rate: 63 ECG rate assessment: normal Rhythm: Rhythm: sinus rhythm Ectopy: Ectopy: none QRS: QRS axis: Normal QRS intervals: NormalConduction: Conduction: abnormal Abnormal conduction: complete RBBB ST segments: ST segments: NormalT waves: T waves: non-specific Lab Interpretation Abnormal (test code = 15162-9) [facility] vlbebxu3894-76-11 05:22:00 Test Item Value Reference Range Interpretation Comments Urine culture (test SEE COMMENT Bacteriu bartolo screen code = 7136863) negative. [facility] LjibrcwhBFKE-RcC-2 (COVID-19) RNA [Presence] in Respiratory specimen by HELENA with probe wygydefpu0275-02-26 02:31:14 Test Item Value Reference Range Interpretation Comments SARS-CoV-2 (COVID-19) RNA Not detected [Presence] in Respiratory specimen by HELENA with probe detection (test code = 84791-4) 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 employed in a Unknown healthcare setting (test code = 37252-3) Whether the patient has symptoms Unknown related to condition of interest (test code = 79707-2) Whether the patient was Unknown hospitalized for condition of interest (test code = 15181-6) Whether the patient was admitted Unknown to intensive care unit (ICU) for condition of interest (test code = 55400-0) Whether patient resides in a Unknown congregate care setting (test code = 24371-6) status (test code = Unknown 76321-1) Date and time of symptom onset Unknown (test code = 17685-6) [facility] sjhe7978-31-80 13:24:41 Test Item Value Reference Range Interpretation Comments Ventricular rate (test code = 253) Atrial rate (test code = 255) KS interval (test code = 266) QRSD interval (test code = 260) QT interval (test code = 264) QTC interval (test code = 265) P axis 1 (test code = 267) QRS axis 1 (test code = 268) T wave axis (test code = 270) EKG impression (test code Normal sinus = 273) rhythm-Right bundle branch block- [facility] ED Preliminary Interpretation - Not an Syord9255-33-39 00:04:12 Test Item Value Reference Range Interpretation Comments SNOW (test code = SNOW) Jefferson Skelton MD 12/04/2021 11:12 [facility] Preliminary Interpretation - Not an OrderPerformed by: Jefferson Skelton MDAuthorized by: Jefferson Skelton MD ECG reviewed by ED Physician in the absence of a general scrap worker: yes Interpretation: Interpretation: abnormal Rate: ECG rate: 70 ECG rate assessment: normal Rhythm: Rhythm: sinus rhythm QRS: QRS axis: Normal QRS intervals: WideConduction: Conduction: abnormal Abnormal conduction: complete RBBB ST segments: ST segments: NormalOther findings: Other findings: prolonged qTc interval Lab Interpretation Abnormal (test code = 54308-6) [facility] dljxfls0662[facility]33-42 02:26:00 Test Item Value Reference Range Interpretation Comments Urine culture (test SEE COMMENT Bacteriu bartolo screen code = 4971477) negative. [facility] NwggiqrgQULA-VqG-9 (COVID-19) RNA [Presence] in Respiratory specimen by HELENA with probe pcmlecgvc9355-99-66 00:33:54 Test Item Value Reference Range Interpretation Comments SARS-CoV-2 (COVID-19) RNA Not detected [Presence] in Respiratory specimen by HELENA with probe detection (test code = 31173-6) 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 employed in a Unknown healthcare setting (test code = 98896-0) Whether the patient has symptoms Unknown related to condition of interest (test code = 84109-7) Whether the patient was Unknown hospitalized for condition of interest (test code = 59232-3) Whether the patient was admitted Unknown to intensive care unit (ICU) for condition of interest (test code = 16004-3) Whether patient resides in a Unknown congregate care setting (test code = 73818-0) status (test code = Unknown 95487-3) Date and time of symptom onset Unknown (test code = 43850-1) [facility] [id number] 09:34:08 Test Item Value Reference Range Interpretation Comments MAGNESIUM (test code = 2082765634) 1.4 mg/dL 1.7-2.4 L Lab Interpretation (test code = Abnormal 20256-8) [facility] METABOLIC PANEL (10449)2020-10-03 09:33:48 Test Item Value Reference Range Interpretation Comments NA (test code = 136 mmol/L 135-145 6717633604) K (test code = 3.3 mmol/L 3.5-5.0 L 0442062827) CL (test code = 100 mmol/L 98-108 4134809827) CO2 TOTAL (test code = 33 mmol/L 23-31 H 9190050998) AGAP (test code = 2-16 6964795718) BUN (test code = 3 mg/dL 7-23 L 4047930948) GLUCOSE (test code = 95 mg/dL 70-110 4848387907) CREATININE (test code = 0.47 mg/dL 0.50-1.04 L 7315717886) TOTAL BILI (test code = 1.5 mg/dL 0.1-1.1 H 5234686262) CALCIUM (test code = 8.1 mg/dL 8.6-10.6 L 7133906313) T PROTEIN (test code = 5.9 g/dL 6.3-8.2 L 2760703868) ALBUMIN (test code = 2.9 g/dL 3.5-5.0 L 2972226860) ALK PHOS (test code = 115 U/L 34-122 2010089882) ALTv (test code = 24 U/L 5-35 1742-6) AST(SGOT) (test code = 35 U/L 13-40 8791983237) eGFR (test code = mL/min/1.73m2 1760196823) SNOW (test code = SNOW) Association of [...] tests). Lab Interpretation Abnormal (test code = 70067-6) [facility] Test Item Value Reference Range Interpretation Comments PHOSPHORUS (test code = 1674053941) 2.8 mg/dL 2.5-5.0 Lab Interpretation (test code = Normal 99204-3) [facility] WITH [id number] 09:31:46 Test Item Value Reference Range Interpretation [...] (test code = 53.8 fL 39.0-49.9 H 26378-3) RDW-CV (test code = 19.9 % 12.0-15.5 H 788-0) PLT (test code = See_Comment L [Automated 777-3) message] The sy stem which generated this result transmitted reference range : 166 - 358 10*3/ ?L. The reference r davi was not used to interpret this result as normal/abnormal . MPV (test code = 10.9 fL 9.5-12.9 67586-4) IPF % (test code = 3.6 % 1.3-7.7 Platelet count 6144705293) measured by fluorescence method. NRBC/100 WBC (test See_Comment [Automat ed code = 0281728467) message] The system which generated this result transmitted reference range : 0.0 - 10.0 /100 WBCs. The refer ence range was not u sed to interpret th is result as normal/abnormal . NRBC x10^3 (test code See_Comment [Auto mated = 7159614522) message] The s ystem which generated this result transmitted reference range : 10*3/?L. The reference range was not used to interpret this result as normal/abnormal . GRAN MAT (NEUT) % 68.1 % (test code = 770-8) IMM GRAN % (test code 1.10 % = 5435842007) LYMPH % (test code = 15.5 % 736-9) MONO % (test code = 11.3 % 5905-5) EOS % (test code = 3.4 % 713-8) BASO % (test code = 0.6 % 706-2) GRAN MAT x10^3(ANC) 2.42 10*3/uL 1.88-7.09 (test code = 5877327947) IMM GRAN x10^3 (test 0.04 10*3/uL 0.00-0.06 code = 1892269960) LYMPH x10^3 (test code 0.55 10*3/uL 1.32-3.29 L = 731-0) MONO x10^3 (test code 0.40 10*3/uL 0.33-0.92 = 742-7) EOS x10^3 (test code = 0.12 10*3/uL 0.03-0.39 711-2) BASO x10^3 (test code <0.03 0.01-0.07 = 704-7) Lab Interpretation Abnormal (test code = 99917-5) [facility] WITH [id number] 10:47:09 Test Item Value Reference Range Interpretation [...] (test code = 52.2 fL 39.0-49.9 H 67296-7) RDW-CV (test code = 18.6 % 12.0-15.5 H 788-0) PLT (test code = See_Comment L [Automated 777-3) message] The sy stem which generated this result transmitted reference range : 166 - 358 10*3/ ?L. The reference r davi was not used to interpret this result as normal/abnormal . MPV (test code = 10.1 fL 9.5-12.9 46590-6) IPF % (test code = 3.2 % 1.3-7.7 Platelet count 2471583917) measured by fluorescence method. NRBC/100 WBC (test See_Comment [Automat ed code = 1588553488) message] The system which generated this result transmitted reference range : 0.0 - 10.0 /100 WBCs. The refer ence range was not u sed to interpret th is result as normal/abnormal . NRBC x10^3 (test code See_Comment [Auto mated = 4782329524) message] The s ystem which generated this result transmitted reference range : 10*3/?L. The reference range was not used to interpret this result as normal/abnormal . GRAN MAT (NEUT) % 65.1 % (test code = 770-8) IMM GRAN % (test code 1.20 % = 9778768417) LYMPH % (test code = 16.9 % 736-9) MONO % (test code = 11.5 % 5905-5) EOS % (test code = 4.5 % 713-8) BASO % (test code = 0.8 % 706-2) GRAN MAT x10^3(ANC) 1.58 10*3/uL 1.88-7.09 L (test code = 6610850445) IMM GRAN x10^3 (test 0.03 10*3/uL 0.00-0.06 code = 6485279985) LYMPH x10^3 (test code 0.41 10*3/uL 1.32-3.29 L = 731-0) MONO x10^3 (test code 0.28 10*3/uL 0.33-0.92 L = 742-7) EOS x10^3 (test code = 0.11 10*3/uL 0.03-0.39 711-2) BASO x10^3 (test code <0.03 0.01-0.07 = 704-7) POLYCHROMASIA (test 2+ See_Comment [Automa josemanuel code = 96638-4) message] The system which generated this result transmitted reference range : 2+. The referen ce range was not u sed to interpret th is result as normal/abnormal . LG GRAN LYMPHS (test Rare Rare code = 1129737167) Lab Interpretation Abnormal (test code = 31343-7) [facility]. METABOLIC PANEL ([id number])2020-10-02 10:19:28 Test Item Value Reference Range Interpretation Comments NA (test code = 135 mmol/L 135-145 7868614779) K (test code = 3.4 mmol/L 3.5-5.0 L 7813464035) CL (test code = 104 mmol/L 98-108 0923682322) CO2 TOTAL (test code = 27 mmol/L 23-31 5623115902) AGAP (test code = 2-16 7962491834) BUN (test code = 4 mg/dL 7-23 L 4152820892) GLUCOSE (test code = 97 mg/dL 70-110 3661470909) CREATININE (test code = 0.45 mg/dL 0.50-1.04 L 1544300968) TOTAL BILI (test code = 1.7 mg/dL 0.1-1.1 H 5601175541) CALCIUM (test code = 8.2 mg/dL 8.6-10.6 L 6556208518) T PROTEIN (test code = 6.0 g/dL 6.3-8.2 L 0392214050) ALBUMIN (test code = 3.1 g/dL 3.5-5.0 L 4863321336) ALK PHOS (test code = 120 U/L 34-122 5983669784) ALTv (test code = 26 U/L 5-35 1742-6) AST(SGOT) (test code = 39 U/L 13-40 9408241421) eGFR (test code = mL/min/1.73m2 8650941612) SNOW (test code = SNOW) Association of [...] tests). Lab Interpretation Abnormal (test code = 69857-0) [facility] [id number] 02:50:27COVID DMT InterpretationInterpretation/Recommendations: Molecular NAAT Tests for [...] COVID-19 testing the patient has had at [facility], including molecular NAAT testing (more commonly known as PCR testing and Rapid ID Now testing) and antibody testing. It does not take into account any testingthat a patient has had outside of the [facility] medical record. [facility] LABORATORY SERVICESCOVID MdxwidiNOHN-DjO-3 NAAT (no units) ? ? Date ? Value ? 02/13/2020 ? Not Detected ? SARS-CoV-2 Rapid ID NOW (no units) ? ? Date ? Value ? 09/29/2020 ? Not Detected ? ? ? 08/10/2019 ? Not Detected ? [facility] LABORATORY [facility] WITH [id number] 10:31:29 Test Item Value Reference Range Interpretation [...] (test code = 52.3 fL 39.0-49.9 H 06806-5) RDW-CV (test code = 18.4 % 12.0-15.5 H 788-0) PLT (test code = See_Comment LL [Automated 777-3) message] The sy stem which generated this result transmitted reference range : 166 - 358 10*3/ ?L. The reference r davi was not used to interpret this result as normal/abnormal . MPV (test code = 11.2 fL 9.5-12.9 07600-4) IPF % (test code = 3.9 % 1.3-7.7 Platelet count 6764091019) measured by fluorescence method. NRBC/100 WBC (test See_Comment [Automat ed code = 7425229406) message] The system which generated this result transmitted reference range : 0.0 - 10.0 /100 WBCs. The refer ence range was not u sed to interpret th is result as normal/abnormal . NRBC x10^3 (test code <0.01 See_Comment [Auto mated = 2731583839) message] The s ystem which generated this result transmitted reference range : 10*3/?L. The reference range was not used to interpret this result as normal/abnormal . GRAN MAT (NEUT) % 57.5 % (test code = 770-8) IMM GRAN % (test code 0.50 % = 1071748026) LYMPH % (test code = 20.7 % 736-9) MONO % (test code = 13.3 % 5905-5) EOS % (test code = 6.9 % 713-8) BASO % (test code = 1.1 % 706-2) GRAN MAT x10^3(ANC) 1.08 10*3/uL 1.88-7.09 L (test code = 6825351078) IMM GRAN x10^3 (test <0.03 0.00-0.06 code = 3226005090) LYMPH x10^3 (test code 0.39 10*3/uL 1.32-3.29 L = 731-0) MONO x10^3 (test code 0.25 10*3/uL 0.33-0.92 L = 742-7) EOS x10^3 (test code = 0.13 10*3/uL 0.03-0.39 711-2) BASO x10^3 (test code <0.03 0.01-0.07 = 704-7) BASO STIPPLING (test Present A code = 703-9) ELLIPTO/OVAL (test 2+ See_Comment A [Automat ed code = 13058-9) message] The system which generated this result transmitted reference range : (none). The reference range was not used to interpret this result as normal/abnormal . POLYCHROMASIA (test 2+ See_Comment [Automa josemanuel code = 56492-7) message] The system which generated this result transmitted reference range : 2+. The referen ce range was not u sed to interpret th is result as normal/abnormal . Lab Interpretation Abnormal (test code = 86475-7) [facility]. METABOLIC PANEL (68836)2020-10-01 09:19:22 Test Item Value Reference Range Interpretation Comments NA (test code = 135 mmol/L 135-145 2802746777) K (test code = 4.0 mmol/L 3.5-5.0 1684814231) CL (test code = 107 mmol/L 98-108 5893951597) CO2 TOTAL (test code = 24 mmol/L 23-31 9495495365) AGAP (test code = 2-16 6840090823) BUN (test code = 7 mg/dL 7-23 2525573473) GLUCOSE (test code = 93 mg/dL 70-110 7730698076) CREATININE (test code = 0.47 mg/dL 0.50-1.04 L 2217595447) TOTAL BILI (test code = 1.6 mg/dL 0.1-1.1 H 3125764714) CALCIUM (test code = 8.1 mg/dL 8.6-10.6 L 6455941592) T PROTEIN (test code = 5.8 g/dL 6.3-8.2 L 9346342501) ALBUMIN (test code = 2.8 g/dL 3.5-5.0 L 7074688747) ALK PHOS (test code = 106 U/L 34-122 0524940949) ALTv (test code = 23 U/L 5-35 1742-6) AST(SGOT) (test code = 39 U/L 13-40 7457881311) eGFR (test code = mL/min/1.73m2 1749772265) SNOW (test code = SNOW) Association of [...] tests). Lab Interpretation Abnormal (test code = 23343-0) [facility] HospitalKAITLINSIOBHAN [id number] 20:47:45 Test Item Value Reference Range Interpretation Comments TROPONIN I (test 0.002 ng/mL See_Comment [Automated code = 7864811045) message] The system which generated this result [...] ? Lab Interpretation Normal (test code = 61034-9) [facility] [id number] 19:11:57 Test Item Value Reference Range Interpretation Comments URINE CULTURE (test code <10,000 CFU/mL = 630-4) Gram-Positive Cocci [facility]ENS BY [id number] 18:17:03 Test Item Value Reference Range Interpretation Comments Campylobacter (jejuni, Negative Negative, coli and upsaliensis) Indeterminate, (test code = 24189-7) See comment Plesiomonas shigelloides Negative Negative, (test code = 29666-6) Indeterminate, See comment Salmonella (test code = Negative Negative, 29341-1) Indeterminate, See comment Yersinia enterocolitica Negative Negative, (test code = 16996-5) Indeterminate, See comment Vibrio (test code = Negative Negative, 70678-4) Indeterminate, See comment Vibrio cholerae (test Negative Negative, code = 69982-8) Indeterminate, See comment Enteroaggregative E. Negative Negative, coli (EAEC) (test code = Indeterminate, 84083-4) See comment Enteropathogenic E. coli Negative Negative, N/A, (EPEC) (test code = Indeterminate, 56517-9) See comment Enterotoxigenic E. coli Negative Negative, (ETEC) (test code = Indeterminate, 60721-0) See comment Shiga toxin-Producing E. Negative Negative, coli (STEC) (test code = Indeterminate, 94692-3) See comment Shigella/Enteroinvasive Negative Negative, E. coli (EIEC) (test Indeterminate, code = 02548-3) See comment Cryptosporidium (test Negative Negative, code = 58169-8) Indeterminate, See comment Cyclospora cayetanensis Negative Negative, (test code = 57357-0) Indeterminate, See comment Entamoeba histolytica Negative Negative, (test code = 44605-6) Indeterminate, See comment Giardia lamblia (test Negative Negative, code = 76544-9) Indeterminate, See comment Adenovirus F 40/41 (test Negative Negative, code = 50400-0) Indeterminate, See comment Astrovirus (test code = Negative Negative, 59941-7) Indeterminate, See comment Norovirus GI/GII (test Negative Negative, code = 77784-9) Indeterminate, See comment Rotavirus A (test code = Negative Negative, 19736-9) Indeterminate, See comment Sapovirus (test code = Negative Negative, 77039-9) Indeterminate, See comment Clostridioides Positive Negative, A (Clostridium) difficile Indeterminate, Toxin A/B (test code = See comment 55841-0) SNOW (test code = SNOW) Based on Candescent HealingArray GI Panel package insert, the Candescent HealingArray GI Panel contains a single multiplexed assay [...] the binary toxin gene (CDT), and the hvzcrk-addf-zkiq deletion at nucleotide 117 within the gene [...] organism. Lab Interpretation (test Abnormal code = 82884-1) [facility]GUAIAC[facility] [id number] 14:26:32 Test Item Value Reference Range Interpretation Comments Occult (guaiac) Blood (test code = Negative Negative 2335-8) Lab Interpretation (test code = Normal 24862-6) [facility] WITH [id number] 13:54:12 Test Item Value Reference Range Interpretation [...] (test code = 52.9 fL 39.0-49.9 H 91878-2) RDW-CV (test code = 18.3 % 12.0-15.5 H 788-0) PLT (test code = See_Comment LL [Automated 777-3) message] The sy stem which generated this result transmitted reference range : 166 - 358 10*3/ ?L. The reference r davi was not used to interpret this result as normal/abnormal . MPV (test code = 10.8 fL 9.5-12.9 86518-8) IPF % (test code = 4.2 % 1.3-7.7 Platelet count 5292785472) measured by fluorescence method. NRBC/100 WBC (test See_Comment [Automat ed code = 7429751032) message] The system which generated this result transmitted reference range : 0.0 - 10.0 /100 WBCs. The refer ence range was not u sed to interpret th is result as normal/abnormal . NRBC x10^3 (test code <0.01 See_Comment [Auto mated = 3490096009) message] The s ystem which generated this result transmitted reference range : 10*3/?L. The reference range was not used to interpret this result as normal/abnormal . GRAN MAT (NEUT) % 60.0 % (test code = 770-8) IMM GRAN % (test code 0.40 % = 3071085433) LYMPH % (test code = 20.6 % 736-9) MONO % (test code = 11.3 % 5905-5) EOS % (test code = 6.9 % 713-8) BASO % (test code = 0.8 % 706-2) GRAN MAT x10^3(ANC) 1.49 10*3/uL 1.88-7.09 L (test code = 2860044543) IMM GRAN x10^3 (test <0.03 0.00-0.06 code = 9092867604) LYMPH x10^3 (test code 0.51 10*3/uL 1.32-3.29 L = 731-0) MONO x10^3 (test code 0.28 10*3/uL 0.33-0.92 L = 742-7) EOS x10^3 (test code = 0.17 10*3/uL 0.03-0.39 711-2) BASO x10^3 (test code <0.03 0.01-0.07 = 704-7) Lab Interpretation Abnormal (test code = 72384-1) [facility] METABOLIC PANEL (86706)2020-09-30 12:47:49 Test Item Value Reference Range Interpretation Comments NA (test code = 135 mmol/L 135-145 7317210813) K (test code = 4.0 mmol/L 3.5-5.0 2848848313) CL (test code = 108 mmol/L 98-108 5273817364) CO2 TOTAL (test code = 23 mmol/L 23-31 3819625536) AGAP (test code = 2-16 3675585999) BUN (test code = 8 mg/dL 7-23 3557532386) GLUCOSE (test code = 109 mg/dL 70-110 8627084516) CREATININE (test code = 0.52 mg/dL 0.50-1.04 6169095678) TOTAL BILI (test code = 1.7 mg/dL 0.1-1.1 H 9506576331) CALCIUM (test code = 8.0 mg/dL 8.6-10.6 L 8518240039) T PROTEIN (test code = 5.7 g/dL 6.3-8.2 L 3781029259) ALBUMIN (test code = 2.7 g/dL 3.5-5.0 L 9122503663) ALK PHOS (test code = 106 U/L 34-122 2255329763) ALTv (test code = 22 U/L 5-35 1742-6) AST(SGOT) (test code = 34 U/L 13-40 8565564261) eGFR (test code = mL/min/1.73m2 5954877215) SNOW (test code = SNOW) Association of [...] tests). Lab Interpretation Abnormal (test code = 99618-2) [facility] HospitalFECAL [id number] 11:49:39 Test Item Value Reference Range Interpretation Comments Fecal Leukocytes (test code = Positive Negative A 2179834911) Lab Interpretation (test code = Abnormal 25997-0) [facility] HospitalN-TERMINAL [id number] 10:20:53 Test Item Value Reference Range Interpretation Comments NT-proBNP (test code 68 pg/mL See_Comment [Autom ated = 6765864206) message] The system which generated this result transmitted reference range : <=125. The reference range was not used to interpret this result as normal/abnormal . SNOW (test code = SNOW) Biotin has been reported to cause a negative bias, interpret results relative to patient's use of biotin. Lab Interpretation Normal (test code = 72917-2) [facility] HospitalCLOSTRIDIUM DIFFICILE [id number] 05:18:16 Test Item Value Reference Range Interpretation Comments Clostridioides (Clostridium) Negative Negative difficile (test code = 32467-1) Lab Interpretation (test code = Normal 69769-7) [facility] HospitalPOCT GLUCOSE (AUTOMATED)2020-09-30 00:54:42 Test Item Value Reference Range Interpretation Comments POCT GLU (test code = 0686127344) 111 mg/dL 70-110 H Lab Interpretation (test code = Abnormal 68540-2) [facility] HospitalBASIC METABOLIC PANEL (NA, K, CL, CO2, GLUCOSE, BUN, CREATININE, CA)2020-09-29 22:08:22 Test Item Value Reference Range Interpretation Comments NA (test code = 135 mmol/L 135-145 7559265025) K (test code = 3.7 mmol/L 3.5-5.0 3417081269) CL (test code = 108 mmol/L 98-108 7704969335) CO2 TOTAL (test code = 22 mmol/L 23-31 L 9338782429) AGAP (test code = 2-16 6634987084) BUN (test code = 9 mg/dL 7-23 2246966449) GLUCOSE (test code = 104 mg/dL 70-110 7156173350) CREATININE (test code = 0.51 mg/dL 0.50-1.04 9352301604) CALCIUM (test code = 7.9 mg/dL 8.6-10.6 L 2092297787) eGFR (test code = mL/min/1.73m2 2926393752) SNOW (test code = SNOW) Association of [...] tests). Lab Interpretation Abnormal (test code = 56608-4) [facility] HospitalHEMOGLOBIN2021-06-21 21:41:20 Test Item Value Reference Range Interpretation Comments HGB (test code = 718-7) 7.4 g/dL 11.6-15.0 L Lab Interpretation (test code = Abnormal 03458-5) [facility] HospitalVITAMIN B12, [id number] 20:39:52 Test Item Value Reference Range Interpretation Comments VIT B12 (test code = 212 pg/mL 240-930 L 6633775303) SNOW (test code = SNOW) Biotin has been reported to cause a positive bias, interpret results relative to patient's use of biotin. Lab Interpretation (test Abnormal code = 47443-5) [facility] HospitalDIFF CONSULT [id number] 17:24:18 LEUKOPENIA WITH ABSOLUTE LYMPHOPENIA, REACTIVE MONOCYTES [...] IPF CONSISTENT WITH LIVER DYSFUNCTION.[facility] HospitalC-REACTIVE [id number] 17:01:56 Test Item Value Reference Range Interpretation Comments CRP (test code = 8365836075) 4.7 mg/dL <0.8 H Lab Interpretation (test code = Abnormal 50304-7) [facility] HospitalVITAMIN D, [id number] 16:43:29 Test Item Value Reference Range Interpretation Comments VIT D 25OH (test code = <13 25-80 L 82941-6) SNOW (test code = SNOW) Deficiency: <20 ng/mLInsufficiency: 20-24 ng/mLOptimal: 25-80 ng/mL Lab Interpretation (test Abnormal code = 45701-1) [facility] HospitalPROCALCITONIN2021-06-21 16:15:30 Test Item Value Reference Range Interpretation Comments Procalcitonin (test 0.08 ng/mL <0.07 H code = 1479949351) SNOW (test code = SNOW) INTERPRETATION OF [...] lung abscess/empyema. For further information please refer to:[email or web address] Lab Interpretation Abnormal (test code = 73596-6) [facility] HospitalOSMOLALITY [id number] 15:35:14 Test Item Value Reference Range Interpretation Comments OSMO U (test code = See_Comment [Automa josemanuel message] 8061931538) The system KXEN generated this result transmitted ref erence range: 50-1,100 mOsm/kg. The re ference range was not u sed to interpret this result as normal/abnor mal. Lab Interpretation (test Normal code = 76596-0) [facility] HospitalTROPONIN [id number] 14:04:56 Test Item Value Reference Range Interpretation Comments TROPONIN I (test 0.002 ng/mL See_Comment [Automated code = 8845863032) message] The system which generated this result [...] ? Lab Interpretation Normal (test code = 30975-7) [facility] HospitalCT ABDOMEN PELVIS W [id number] 13:37:17 1. ?Findings concerning for infectious or [...] this study and agree with theabove report.[facility] WITH [id number] 11:41:25 Test Item Value Reference Range Interpretation Comments WBC (test code = See_Comment L [Automated 0090-2) message] The system which generated this result transmit josemanuel reference range : 4.30 - 11.10 10*3/?L. The reference range was not used to interpret this result as normal/abnormal . RBC (test code = See_Comment L [Automated 019-8) message] The system which generated this result [...] (test code = 52.4 fL 39.0-49.9 H 77800-0) RDW-CV (test code = 18.2 % 12.0-15.5 H 788-0) PLT (test code = See_Comment LL [Automated 777-3) message] The system which generated this result transmit josemanuel reference range : 166 - 358 10*3/ ?L. The reference range was not u sed to interpret th is result as normal/abnormal . MPV (test code = Not Measure d 30828-3) IPF % (test code = 4.3 % 1.3-7.7 Platelet count 0710644104) measured by fluorescence method. NRBC/100 WBC (test See_Comment [Automat ed code = 2890398725) message] The system which generated this result transmit josemanuel reference range : 0.0 - 10.0 /100 WBCs. The reference range was not used to interpret this result as normal/abnormal . NRBC x10^3 (test code <0.01 See_Comment [Auto mated = 9925235906) message] The system which generated this result transmit josemanuel reference range : 10*3/?L. The reference range was not used to interpret this result as normal/abnormal . GRAN MAT (NEUT) % 74.4 % (test code = 770-8) IMM GRAN % (test code 0.50 % = 5590152878) LYMPH % (test code = 10.3 % 736-9) MONO % (test code = 12.3 % 5905-5) EOS % (test code = 2.0 % 713-8) BASO % (test code = 0.5 % 706-2) GRAN MAT x10^3(ANC) 3.02 10*3/uL 1.88-7.09 (test code = 3227185692) IMM GRAN x10^3 (test <0.03 0.00-0.06 code = 4966119709) LYMPH x10^3 (test 0.42 10*3/uL 1.32-3.29 L code = 731-0) MONO x10^3 (test code 0.50 10*3/uL 0.33-0.92 = 742-7) EOS x10^3 (test code 0.08 10*3/uL 0.03-0.39 = 711-2) BASO x10^3 (test code <0.03 0.01-0.07 = 704-7) PLT ESTIMATE (test Decreased Normal A code = 9317-9) SNOW (test code = SNOW) CBC smear reduced platelet Lab Interpretation Abnormal (test code = 88005-6) [facility] HospitalN-TERMINAL [id number] 11:07:24 Test Item Value Reference Range Interpretation Comments NT-proBNP (test code 79 pg/mL See_Comment [Autom ated = 9697515348) message] The system which generated this result transmitted reference range : <=125. The reference range was not used to interpret this result as normal/abnormal . SNOW (test code = SNOW) Biotin has been reported to cause a negative bias, interpret results relative to patient's use of biotin. Lab Interpretation Normal (test code = 51535-1) [facility] HospitalIRON [id number] 11:04:41 Test Item Value Reference Range Interpretation Comments IRON (test code = 4197580870) 31 ug/dL 50-160 L TIBC (test code = 7087846001) 295 ug/dL 250-410 % FE SAT (test code = 6457059222) 11 % 20-50 L Lab Interpretation (test code = Abnormal 77445-7) [facility] HospitalPROTEIN CREAT RATIO URINE [id number] 10:57:19 Test Item Value Reference Range Interpretation Comments T. PROT U (test code = 2888-6) 9 mg/dL CREAT U (test code = 5772839733) 187.5 mg/dL Protein/Creatinine Ratio Urine 0.0-2.0 (test code = 6139491131) [facility] [id number] 10:53:21 Test Item Value Reference Range Interpretation Comments NA URINE (test code = 2736613216) 30 mmol/L [facility] [id number] 10:33:04 Test Item Value Reference Range Interpretation Comments ESR (test code = See_Comment [Automated message] 5455040731) The system KXEN generated this result transmitted ref erence range: 0 - 20 m m/HR. The reference r davi was not used to interpret this result as normal/abnor mal. Lab Interpretation (test Normal code = 07883-2) [facility]PROT[facility]OMBIN [facility] / [id number] 09:43:39 Test Item Value Reference Range Interpretation Comments PROTIME PATIENT (test See_Comment H [Auto mated message] code = 5964-2) The system [employer] generated this result transmitted ref erence range: 12.0 - 1 4.7 Seconds. The reference range was not used to int erpret this result as normal/abnormal . INR (test code = 6301-6) Nor mal INR <1.1; Warfarin Therap eutic range 2.0 to 3. 0 or 2.5 to 3.5, dep ending upon the indica tions. Lab Interpretation (test Abnormal code = 82875-6) [facility] HospitalLactic Acid Whole [id number] 08:42:38 Test Item Value Reference Range Interpretation Comments LACTIC ACID (test code = 1.47 mmol/L 0.50-2.20 9661519279) Lab Interpretation (test code = Normal 35384-8) [facility] HospitalFERRITIN [id number] 07:31:09 Test Item Value Reference Range Interpretation Comments FERRITIN (test code = 12.2 ng/mL 11.0-264.0 9677105195) SNOW (test code = SNOW) Biotin has been reported to cause a negative bias, interpret results relative to patient's use of biotin. Lab Interpretation (test Normal code = 37445-3) [facility] HospitalTHYROID STIMULATING [id number] 07:27:08 Test Item Value Reference Range Interpretation Comments TSH (test code = See_Comment [Automated message] 7283694374) The system KXEN generated this result transmitted ref erence range: 0.45 - 4 .70 mIU/L. The refe rence range was not u sed to interpret this result as normal/abnor mal. Lab Interpretation (test Normal code = 37853-9) [facility] HospitalGLYCOSYLATED HEMOGLOBIN (A1C)2020-09-29 07:05:40 Test Item Value Reference Range Interpretation Comments HGB A1C (test code = 5.0 % 4.0-5.7 4548-4) SNOW (test code = SNOW) Reference RangesNormal: <5.7%Prediabetes: 5.7 - 6.4%Diabetes: > 6.5% Lab Interpretation (test Normal code = 79361-1) [facility] HospitalURIC [id number] 07:05:35 Test Item Value Reference Range Interpretation Comments URIC ACID (test code = 9289260353) 4.2 mg/dL 2.9-6.0 Lab Interpretation (test code = Normal 40238-0) [facility] HospitalCREATINE [id number] 07:05:30 Test Item Value Reference Range Interpretation Comments CK (test code = 7308432697) 192 U/L 33-194 Lab Interpretation (test code = Normal 98294-3) [facility] HospitalN-TERMINAL [id number] 07:05:30 Test Item Value Reference Range Interpretation Comments NT-proBNP (test code 94 pg/mL See_Comment [Autom ated = 2923742804) message] The system which generated this result transmitted reference range : <=125. The reference range was not used to interpret this result as normal/abnormal . SNOW (test code = SNOW) Biotin has been reported to cause a negative bias, interpret results relative to patient's use of biotin. Lab Interpretation Normal (test code = 30913-4) [facility] HospitalMAGNESIUM2021-06-21 07:04:24 Test Item Value Reference Range Interpretation Comments MAGNESIUM (test code = 3940943298) 1.8 mg/dL 1.7-2.4 Lab Interpretation (test code = Normal 59883-7) [facility] HospitalPHOSPHORUS2021-06-21 07:03:39 Test Item Value Reference Range Interpretation Comments PHOSPHORUS (test code = 3472033407) 2.2 mg/dL 2.5-5.0 L Lab Interpretation (test code = Abnormal 03388-8) [facility] HospitalLIPID PANEL (20457)(TOTAL CHOLESTEROL, TRIGLYCERIDES, HDL)2020-09-29 06:56:06 Test Item Value Reference Range Interpretation Comments CHOL (test code = 132 mg/dL 120-200 9774101198) HDL (test code = 41 mg/dL >50 L 4686162602) HDLC RATIO (test code = See_Comment [Au tomated message] 2342007204) The system KXEN generated this result transmit josemanuel reference range : <=4.5. The refe rence range was not u sed to interpret th is result as normal/abnormal . TRIG (test code = 73 mg/dL 30-170 9338908062) LDL CHOL (test code = 76 mg/dL See_Comment [Auto mated message] 65731-8) The system KXEN generated this result transmit josemanuel reference range : <=160. The refe rence range was not u sed to interpret th is result as normal/abnormal . VLDL (test code = 15 mg/dL 5-60 0955047511) Lab Interpretation (test Abnormal code = 52993-2) [facility] HospitalCOVID-19 (ID NOW RAPID TESTING)2020-09-29 06:24:26 Test Item Value Reference Range Interpretation Comments SARS-CoV-2 Rapid ID NOW Not Detected Not Detected (test code = 95014-0) SNOW (test code = SNOW) ID NOW COVID-19 Assay is an isothermal nucleic acid amplification test intended for the qualitative detection of nucleic acid from SARS-CoV-2 viral RNA in nasopharyngeal (OCCUPATIONAL THERAPY ASSIST) specimens. It is used under Emergency Use [...] indicated. Lab Interpretation Normal (test code = 34327-0) [facility] HospitalURINALYSIS2021-06-21 04:43:31 Test Item Value Reference Range Interpretation Comments APPEARANCE (test code = Clear Clear 6706961211) COLOR (test code = Rosanne Yellow A 2042763385) PH (test code = 4.8-8.0 8227432034) SP GRAVITY (test code = 1.003-1.030 8080477727) GLU U QUAL (test code = Normal Normal 5147219278) BLOOD (test code = Negative Negative 7412138885) KETONES (test code = Negative Negative 3279578463) PROTEIN (test code = 30 mg/dL Negative A 2887-8) UROBILIN (test code = Normal Normal 9031010008) BILIRUBIN (test code = Negative Negative 6609461533) NITRITE (test code = Negative Negative 3963943063) LEUK RANULFO (test code = 25/uL Negative A 9402853654) RBC/HPF (test code = See_Comment [Autom ated message] 8261942732) The system KXEN generated this result transmitted ref erence range: 0 - 3 HP F. The reference range was not used to int erpret this result as normal/abnormal . WBC/HPF (test code = See_Comment [Autom ated message] 1336888020) The system KXEN generated this result transmitted ref erence range: 0 - 5 HP F. The reference range was not used to int erpret this result as normal/abnormal . BACTERIA (test code = Few Negative A 7651776595) MUCOUS (test code = Moderate Negative LPF A 4983781240) SQ EPITH (test code = HPF 9286549314) Lab Interpretation (test Abnormal code = 16248-3) [facility] WITH [id number] 04:39:35 Test Item Value Reference Range Interpretation Comments WBC (test code = See_Comment [Automated 5790-2) message] The system which generated this result transmit josemanuel reference range : 4.30 - 11.10 10*3/?L. The reference range was not used to interpret this result as normal/abnormal . RBC (test code = See_Comment L [Automated 529-8) message] The system which generated this result [...] (test code = 51.3 fL 39.0-49.9 H 66428-8) RDW-CV (test code = 18.1 % 12.0-15.5 H 788-0) PLT (test code = See_Comment L [Automated 777-3) message] The system which generated this result transmit josemanuel reference range : 166 - 358 10*3/ ?L. The reference range was not u sed to interpret th is result as normal/abnormal . MPV (test code = 11.1 fL 9.5-12.9 39050-3) IPF % (test code = 3.7 % 1.3-7.7 Platelet count 3542102882) measured by fluorescence method. NRBC/100 WBC (test See_Comment [Automat ed code = 5396069743) message] The system which generated this result transmit josemanuel reference range : 0.0 - 10.0 /100 WBCs. The reference range was not used to interpret this result as normal/abnormal . NRBC x10^3 (test code <0.01 See_Comment [Auto mated = 8991629362) message] The system which generated this result transmit josemanuel reference range : 10*3/?L. The reference range was not used to interpret this result as normal/abnormal . GRAN MAT (NEUT) % 76.4 % (test code = 770-8) IMM GRAN % (test code 0.80 % = 4447784207) LYMPH % (test code = 9.4 % 736-9) MONO % (test code = 11.3 % 5905-5) EOS % (test code = 1.5 % 713-8) BASO % (test code = 0.6 % 706-2) GRAN MAT x10^3(ANC) 4.07 10*3/uL 1.88-7.09 (test code = 3477846594) IMM GRAN x10^3 (test 0.04 10*3/uL 0.00-0.06 code = 5411706081) LYMPH x10^3 (test 0.50 10*3/uL 1.32-3.29 L code = 731-0) MONO x10^3 (test code 0.60 10*3/uL 0.33-0.92 = 742-7) EOS x10^3 (test code 0.08 10*3/uL 0.03-0.39 = 711-2) BASO x10^3 (test code 0.03 10*3/uL 0.01-0.07 = 704-7) PLT ESTIMATE (test Decreased Normal A code = 9317-9) SNOW (test code = SNOW) Juan slide adgrees to decreased Platelet Lab Interpretation Abnormal (test code = 96703-2) [facility]. METABOLIC PANEL (53633)2020-09-29 04:25:42 Test Item Value Reference Range Interpretation Comments NA (test code = 134 mmol/L 135-145 L 7013038292) K (test code = 3.2 mmol/L 3.5-5.0 L 5733713784) CL (test code = 104 mmol/L 98-108 1983453736) CO2 TOTAL (test code = 24 mmol/L 23-31 5361765782) AGAP (test code = 2-16 3537154660) BUN (test code = 8 mg/dL 7-23 5416536210) GLUCOSE (test code = 105 mg/dL 70-110 6244591290) CREATININE (test code = 0.51 mg/dL 0.50-1.04 1438890856) TOTAL BILI (test code = 2.5 mg/dL 0.1-1.1 H 7040054212) CALCIUM (test code = 8.2 mg/dL 8.6-10.6 L 6692636114) T PROTEIN (test code = 6.3 g/dL 6.3-8.2 7719926241) ALBUMIN (test code = 3.1 g/dL 3.5-5.0 L 0692227707) ALK PHOS (test code = 136 U/L 34-122 H 5805111044) ALTv (test code = 24 U/L 5-35 1742-6) AST(SGOT) (test code = 30 U/L 13-40 4785756394) eGFR (test code = mL/min/1.73m2 4271879910) SNOW (test code = SNOW) Association of [...] tests). Lab Interpretation Abnormal (test code = 71940-6) [facility]ASE[facility] 04:25:42 Test Item Value Reference Range Interpretation Comments LIPASE (test code = 8077866632) 102 U/L 0-220 Lab Interpretation (test code = Normal 47498-9) [facility] HospitalSARS-CoV-2 (COVID-19) RNA [Presence] in Respiratory specimen by HELENA with probe [id number] 00:49:19 Test Item Value Reference Range Interpretation Comments SARS-CoV-2 (COVID-19) RNA Not detected Not-Detected [Presence] in Respiratory specimen by HELENA with probe detection (test code = 14123-6) 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 employed in a healthcare setting (test code = 54918-9) Whether the patient has symptoms related to condition of interest (test code = 83665-4) Patient was hospitalized because of this condition (test code = 00025-8) Whether the patient was admitted to intensive care unit (ICU) for condition of interest (test code = 25231-3) Whether patient resides in a congregate care setting (test code = 28579-5) BROOKE CHOUSARS-CoV-2 (COVID-19) RNA [Presence] in Respiratory specimen by HELENA with probe [id number] 02:47:43 Test Item Value Reference Range Interpretation Comments SARS-CoV-2 (COVID-19) RNA Not detected Not-Detected [Presence] in Respiratory specimen by HELENA with probe detection (test code = 72409-0) [facility] CHOUSARS-CoV-2 (COVID-19) RNA [Presence] in Respiratory specimen by HELENA with probe [id number] 16:32:37 Test Item Value Reference Range Interpretation Comments SARS-CoV-2 (COVID-19) RNA Not detected Not-Detected [Presence] in Respiratory specimen by HELENA with probe detection (test code = 76084-2) [facility] KYLE [id number]-JqH-5 (COVID-19) RNA [Presence] in Respiratory specimen by HELENA with probe [id number] 05:29:57 Test Item Value Reference Range Interpretation Comments SARS-CoV-2 (COVID-19) RNA Not detected Not-Detected [Presence] in Respiratory specimen by HELENA with probe detection (test code = 21769-4) [facility] KYLE [place] ABDOMEN PELVIS W [id number] 19:27:49 1. ?No evidence of small bowel [...] this study and agree with the abovereport.[facility] WITH [id number] 11:56:00 Test Item Value Reference Range Interpretation Comments WBC (test code = See_Comment L [Automated 5290-2) message] The sy stem which generated this result transmitted reference range : 4.30 - 11.10 10*3/?L. The reference range was not used to interpret this result as normal/abnormal . RBC (test code = See_Comment L [Automated 179-8) message] The sy stem which generated this [...] (test code = 58.0 fL 39-49.9 H 20889-8) RDW-CV (test code = 16.6 % 12-15.5 H 788-0) PLT (test code = See_Comment LL [Automated 777-3) message] The sy stem which generated this result transmitted reference range : 166 - 358 10*3/ ?L. The reference r davi was not used to interpret this result as normal/abnormal . MPV (test code = 11.0 fL 9.5-12.9 76302-8) IPF % (test code = 5.5 % 1.3-7.7 Platelet count 1227221168) measured by fluorescence method. NRBC/100 WBC (test See_Comment [Automat ed code = 7450636966) message] The system which generated this result transmitted reference range : 0.0 - 10.0 /100 WBCs. The refer ence range was not u sed to interpret th is result as normal/abnormal . NRBC x10^3 (test code <0.01 See_Comment [Auto mated = 9638784544) message] The s ystem which generated this result transmitted reference range : 10*3/?L. The reference range was not used to interpret this result as normal/abnormal . GRAN MAT (NEUT) % 57.6 % (test code = 770-8) IMM GRAN % (test code 0.00 % = 1934488678) LYMPH % (test code = 27.1 % 736-9) MONO % (test code = 11.8 % 5905-5) EOS % (test code = 3.1 % 713-8) BASO % (test code = 0.4 % 706-2) GRAN MAT x10^3(ANC) 1.47 10*3/uL 1.88-7.09 L (test code = 7231752536) IMM GRAN x10^3 (test <0.03 0-0.06 code = 0814853989) LYMPH x10^3 (test code 0.69 10*3/uL 1.32-3.29 L = 731-0) MONO x10^3 (test code 0.30 10*3/uL 0.33-0.92 L = 742-7) EOS x10^3 (test code = 0.08 10*3/uL 0.03-0.39 711-2) BASO x10^3 (test code <0.03 0.01-0.07 = 704-7) Lab Interpretation Abnormal (test code = 20117-9) [facility]. METABOLIC PANEL (68745)2019-08-11 10:42:00 Test Item Value Reference Range Interpretation Comments NA (test code = 138 mmol/L 135-145 8712563791) K (test code = 3.8 mmol/L 3.5-5 1681215179) CL (test code = 108 mmol/L 98-108 2300346682) CO2 TOTAL (test code = 24 mmol/L 23-31 6688180836) AGAP (test code = 2-16 9997756855) BUN (test code = 10 mg/dL 7-23 1301573085) GLUCOSE (test code = 108 mg/dL 70-110 4877348181) CREATININE (test code = 0.43 mg/dL 0.5-1.04 L 2963065690) TOTAL BILI (test code = 2.5 mg/dL 0.1-1.1 H 1961094763) CALCIUM (test code = 8.4 mg/dL 8.6-10.6 L 1142392804) T PROTEIN (test code = 6.1 g/dL 6.3-8.2 L 0016186095) ALBUMIN (test code = 3.1 g/dL 3.5-5 L 5634616665) ALK PHOS (test code = 102 U/L 34-122 7622804963) ALTv (test code = 52 U/L 5-35 H 1742-6) AST(SGOT) (test code = 63 U/L 13-40 H 3357307595) eGFR Calculation mL/min/1.73m2 (Non-) (test code = 8640675533) eGFR Calculation mL/min/1.73m2 () (test code = 1789465083) SNOW (test code = SNOW) Association of [...] tests). Lab Interpretation Abnormal (test code = 30121-5) [facility] HospitalXR SMALL BOWEL [id number] 02:08:11 1. ?No bowel obstruction. No fluoroscopic images or fluoroscopic time. RL 6200 HISTORY: ?Abdominal pain COMPARISON: ?None FINDINGS: There is a nonobstructive bowel gas pattern. Contrast is seen throughoutthe entire small bowel and colon. No dilated loops of bowel demonstrated. [facility], Radiant Results Inft User - 08/10/2019 9:09 PM CDTHISTORY: Abdominal painCOMPARISON: NoneFINDINGS:There is a nonobstructive bowel gas pattern. Contrast is seen throughoutthe entire small bowel and colon. No dilated loops of bowel demonstrated.IMPRESSION1. No bowel obstruction.No fluoroscopic images or fluoroscopic time.RL 6200 [facility] ResourcesSEDIMENTATION [id number] 16:19:00 Test Item Value Reference Range Interpretation Comments ESR (test code = See_Comment [Automated message] 1421411358) The system KXEN generated this result transmitted ref erence range: 0 - 20 m m/HR. The reference r davi was not used to interpret this result as normal/abnor mal. Lab Interpretation (test Normal code = 92717-0) [facility] HospitalAbdominal 1 View - To [...] system. No acute bony abnormalities are noted. [facility], Radiant Results Inft User - [...] the visualized upperabdomen.Preliminary Report Dictated by Resident: Nancy Perla MD., have reviewed this study and agree with the abovereport.[facility] WITH [id number] 13:48:00 Test Item Value Reference Range Interpretation [...] (test code = 58.4 fL 39-49.9 H 21898-0) RDW-CV (test code = 16.7 % 12-15.5 H 788-0) PLT (test code = See_Comment LL [Automated 777-3) message] The system which generated this result transmit josemanuel reference range : 166 - 358 10*3/ ?L. The reference range was not u sed to interpret th is result as normal/abnormal . MPV (test code = 10.5 fL 9.5-12.9 09877-9) IPF % (test code = 3.0 % 1.3-7.7 Platelet count 4963010810) measured by fluorescence method. NRBC/100 WBC (test See_Comment [Automat ed code = 2608675473) message] The system which generated this result transmit josemanuel reference range : 0.0 - 10.0 /100 WBCs. The reference range was not used to interpret this result as normal/abnormal . NRBC x10^3 (test code <0.01 See_Comment [Auto mated = 3471234499) message] The system which generated this result transmit josemanuel reference range : 10*3/?L. The reference range was not used to interpret this result as normal/abnormal . GRAN MAT (NEUT) % 57.1 % (test code = 770-8) IMM GRAN % (test code 0.40 % = 0146512516) LYMPH % (test code = 28.1 % 736-9) MONO % (test code = 10.4 % 5905-5) EOS % (test code = 3.6 % 713-8) BASO % (test code = 0.4 % 706-2) GRAN MAT x10^3(ANC) 1.42 10*3/uL 1.88-7.09 L (test code = 4511567521) IMM GRAN x10^3 (test <0.03 0-0.06 code = 5058172347) LYMPH x10^3 (test 0.70 10*3/uL 1.32-3.29 L code = 731-0) MONO x10^3 (test code 0.26 10*3/uL 0.33-0.92 L = 742-7) EOS x10^3 (test code 0.09 10*3/uL 0.03-0.39 = 711-2) BASO x10^3 (test code <0.03 0.01-0.07 = 704-7) PLT ESTIMATE (test Critically Normal AA code = 9317-9) Decreased Lab Interpretation Abnormal (test code = 15088-9) [facility] HospitalGLYCOSYLATED HEMOGLOBIN (A1C)2019-08-10 13:13:00 Test [...] Indicated Lab Interpretation Normal (test code = 98581-1) [facility] HospitalTHYROID STIMULATING [id number] 13:05:00 Test Item Value Reference Range Interpretation Comments TSH (test code = See_Comment [Automated message] 7868019371) The system KXEN generated this result transmitted ref erence range: 0.45 - 4 .70 mIU/L. The refe rence range was not u sed to interpret this result as normal/abnor mal. Lab Interpretation (test Normal code = 30998-0) [facility] HospitalPREGNANCY TEST, [id number] 13:04:00 Test Item Value Reference Range Interpretation Comments PREG SERUM (test code Negative = 4733587092) SNOW (test code = SNOW) Less than 10 IU/L. ?If low titer or ectopic is suspected, resubmit specimen in 48-72 hours. [facility] HospitalLIPID PANEL (25250)(TOTAL CHOLESTEROL, TRIGLYCERIDES, HDL)2019-08-10 12:36:00 Test Item Value Reference Range Interpretation Comments CHOL (test code = 158 mg/dL 120-200 0779449334) HDL (test code = 47 mg/dL >50 L 3277858477) HDLC RATIO (test code = See_Comment [Au tomated message] 6920135666) The system KXEN generated this result transmit josemanuel reference range : <=4.5. The refe rence range was not u sed to interpret th is result as normal/abnormal . TRIG (test code = 51 mg/dL 30-170 0113501425) LDL CHOL (test code = 101 mg/dL See_Comment [Auto mated message] 36314-3) The system KXEN generated this result transmit josemanuel reference range : <=160. The refe rence range was not u sed to interpret th is result as normal/abnormal . VLDL (test code = 10 mg/dL 5-60 6952287714) Lab Interpretation (test Abnormal code = 64054-1) [facility] HospitalCOMP. METABOLIC PANEL (62926)2019-08-10 12:35:00 Test Item Value Reference Range Interpretation Comments NA (test code = 139 mmol/L 135-145 3330048289) K (test code = 3.9 mmol/L 3.5-5 0859479937) CL (test code = 109 mmol/L 98-108 H 9077031920) CO2 TOTAL (test code = 25 mmol/L 23-31 9846121508) AGAP (test code = 2-16 0540025633) BUN (test code = 15 mg/dL 7-23 8212637895) GLUCOSE (test code = 218 mg/dL 70-110 H 9158407254) CREATININE (test code = 0.40 mg/dL 0.5-1.04 L 1083488435) TOTAL BILI (test code = 2.0 mg/dL 0.1-1.1 H 3727435526) CALCIUM (test code = 8.5 mg/dL 8.6-10.6 L 6822144011) T PROTEIN (test code = 6.2 g/dL 6.3-8.2 L 2466464442) ALBUMIN (test code = 3.1 g/dL 3.5-5 L 7956767105) ALK PHOS (test code = 99 U/L 34-122 3573678566) ALTv (test code = 42 U/L 5-35 H 1742-6) AST(SGOT) (test code = 49 U/L 13-40 H 1230633214) eGFR Calculation mL/min/1.73m2 (Non-) (test code = 7785417893) eGFR Calculation mL/min/1.73m2 () (test code = 1175497658) SNOW (test code = SNOW) Association of [...] tests). Lab Interpretation Abnormal (test code = 06015-1) [facility] HospitalMAGNESIUM2020-05-01 12:35:00 Test Item Value Reference Range Interpretation Comments MAGNESIUM (test code = 4331405106) 1.6 mg/dL 1.7-2.4 L Lab Interpretation (test code = Abnormal 57215-0) [facility] HospitalPHOSPHORUS2020-05-01 12:35:00 Test Item Value Reference Range Interpretation Comments PHOSPHORUS (test code = 0931805657) 3.6 mg/dL 2.5-5 Lab Interpretation (test code = Normal 19927-1) [facility] HospitalCREATINE [id number] 12:35:00 Test Item Value Reference Range Interpretation Comments CK (test code = 0405038597) 123 U/L 33-194 Lab Interpretation (test code = Normal 44603-8) [facility] HospitalLIPASE2020-05-01 12:35:00 Test Item Value Reference Range Interpretation Comments LIPASE (test code = 3297113277) 141 U/L 0-220 Lab Interpretation (test code = Normal 53468-7) [facility] HospitalAMYLASE2020-05-01 12:34:00 Test Item Value Reference Range Interpretation Comments LIN (test code = 7637199178) 73 U/L 35-110 Lab Interpretation (test code = Normal 85920-2) [facility] HospitalPROTHROMBIN TIME / [id number] 12:07:00 Test Item Value Reference Range Interpretation Comments PROTIME PATIENT (test See_Comment H [Auto mated message] code = 5964-2) The system [employer] generated this result transmitted ref erence range: 12.0 - 1 4.7 Seconds. The reference range was not used to int erpret this result as normal/abnormal . INR (test code = 6301-6) Nor mal INR <1.1; Warfarin Therap eutic range 2.0 to 3. 0 or 2.5 to 3.5, dep ending upon the indica tions. Lab Interpretation (test Abnormal code = 61360-4) [facility] HospitalCORONAVIRUS COVID-19 [id number] 10:18:00 Test Item Value Reference Range Interpretation Comments SARS-CoV-2 (test code = Not Detected Not Detected 76750-8) SNOW (test code = SNOW) ID NOW COVID-19 Assay is an isothermal nucleic acid amplification test intended for the qualitative detection of nucleic acid from SARS-CoV-2 viral RNA in nasopharyngeal (OCCUPATIONAL THERAPY ASSIST) specimens. It is used under Emergency Use [...] indicated. Lab Interpretation Normal (test code = 00845-4) [facility] HospitalRAD, CHEST, 1 VIEW, NON [id number] 07:50:00Reason for exam:->SOBShould this be performed at the bedside?->Yes FINAL REPORT CLINICAL HISTORY: SOB TECHNIQUE: 1 view of the chest. COMPARISON: None IMPRESSION: There is pulmonary vascular congestion with prominent lung markings bilaterally. Subpulmonic pleural effusions cannot be excluded. The cardiomediastinal silhouette is magnified by technique. Signed: Franky Hoyt MDReport Verified Date/Time: 10/03/2018 07:50:47 Reading [facility] Reading Room [id number] 07:37:00 Test Item Value Reference Range Interpretation Comments MAGNESIUM (BEAKER) (test code = 1.6 mg/dL 1.6-2.6 627) BASIC METABOLIC [id number] 07:37:00 Test Item Value Reference Range Interpretation [...] DIALYSIS PATIEN TS. Specimen slightly ictericHEPATIC FUNCTION [id number] 07:37:00 Test Item Value Reference Range Interpretation [...] 35 U/L 6-55 347) Specimen slightly ictericPROTHROMBIN TIME/[id number] 06:25:00 Test Item Value Reference Range Interpretation [...] mechanical heart valves.CBC W/PLT COUNT & AUTO [id number] 06:16:00 Test Item Value Reference Range Interpretation [...] = 3438) Received comment: User comments: Slide comments:[id number] 05:58:00 Test Item Value Reference Range Interpretation Comments MAGNESIUM (BEAKER) (test code = 1.6 mg/dL 1.6-2.6 627) BASIC METABOLIC [id number] 05:58:00 Test Item Value Reference Range Interpretation [...] DIALYSIS PATIEN TS. Specimen slightly ictericHEPATIC FUNCTION [id number] 05:58:00 Test Item Value Reference Range Interpretation [...] 39 U/L 6-55 347) Specimen slightly ictericPROTHROMBIN [id number] 05:26:00 Test Item Value Reference Range Interpretation [...] mechanical heart valves.CBC W/PLT COUNT & AUTO [id number] 05:20:00 Test Item Value Reference Range Interpretation [...] WBC 0-0 (test code = 413) VITAMIN [id number] 06:57:00 Test Item Value Reference Range Interpretation Comments VITAMIN B12 (BEAKER) (test code = 178 pg/mL 213-816 L 774) [id number] 06:57:00 Test Item Value Reference Range Interpretation Comments FERRITIN (BEAKER) (test code = 361) 21 ng/mL 5-275 FOLATE, [id number] 06:57:00 Test Item Value Reference Range Interpretation [...] 28 % 20-55 (test code = 2590) [id number] 05:59:00 Test Item Value Reference Range Interpretation Comments MAGNESIUM (BEAKER) (test code = 1.7 mg/dL 1.6-2.6 627) BASIC METABOLIC [id number] 05:59:00 Test Item Value Reference Range Interpretation [...] FOR DIALYSIS PATIEN TS. Specimen slightly ictericLIPID [id number] 05:59:00 Test Item Value Reference Range Interpretation [...] Very High >=190 Specimen slightly ictericHEPATIC FUNCTION [id number] 05:59:00 Test Item Value Reference Range Interpretation [...] = 41 U/L 6-55 347) Specimen slightly [id number] 05:59:00 Test Item Value Reference Range Interpretation Comments LIPASE (BEAKER) (test code = 749) 35 U/L 8-78 Specimen slightly ictericPROTHROMBIN [id number] 05:58:00 Test Item Value Reference Range Interpretation [...] mechanical heart valves.CBC W/PLT COUNT & AUTO [id number] 05:37:00 Test Item Value Reference Range Interpretation [...] 417) IMMATURE GRANULOCYTES-RELATIVE 0 % 0-1 PERCENT ([facility]) (test code = 2801) POCT-HEMOGLOBIN [id number] 06:12:00 Test Item Value Reference Range Interpretation Comments POC-HEMOGLOBIN METER 8.6 g/dL 12.0-15.0 L TESTED AT [facility] ([facility]) (test code = [place] [address] 1539)"
--- NOTE | 2022-04-30 11:31 | RAD REPORT ---
EXAM DESCRIPTION: Igor Singleton And Corey (2 Views)04/30/2022 11:15 am CLINICAL HISTORY: Cough COMPARISON: January 2022 FINDINGS: The lungs appear clear of acute infiltrate. The heart is normal size IMPRESSION: No acute abnormalities displayed
--- NOTE | 2022-04-30 12:21 | ER ---
Nurse's Notes [facility] Name: Zenaida Goss Age: 62 yrs Sex: Female : 1960 Arrival Date: 04/30/2022 Time: 10:40 Bed DIS1 Private MD: Annalise Souza Diagnosis: Acute upper respiratory infection, unspecified;Cough;Myalgia Presentation: 04/30 10:50 Chief complaint: Patient states: ws diagnosed with bronchitis and finished a zpack but iw she is still having a cough and pain in her chest , also has pain in her ear. Coronavirus screen: Client presents with at least one sign or symptom that may indicate coronavirus-19. Ebola Screen: Patient negative for fever greater than or equal to 101.5 degrees Fahrenheit, and additional compatible Ebola Virus Disease symptoms Patient denies exposure to infectious person. Patient denies travel to an Ebola-affected area in the 21 days before illness onset. No symptoms or risks identified at this time. Initial Sepsis Screen: Does the patient meet any 2 criteria? No. Patient's initial sepsis screen is negative. Does the patient have a suspected source of infection? No. Patient's initial sepsis screen is negative. Risk Assessment: Do you want to hurt yourself or someone else? Patient reports no desire to harm self or others. Onset of symptoms was April 16, 2022. 10:50 Method Of Arrival: Ambulatory iw 10:50 Acuity: TANK 3 iw Historical: - Allergies: 10:51 Demerol; iw 10:51 Dilaudid; iw 10:51 Morphine (Anaphylaxis); iw 10:51 Zofran; iw - Home Meds: 10:51 Creon Oral [Active]; Lactulose Oral [Active]; Lasix Oral [Active]; Protonix Oral iw [Active]; rifaximin Oral [Active]; Spironolactone Oral [Active]; - PMHx: 10:51 Anemia; breast cancer; Cirrhosis; ESOPHAGEAL VARACIES; fatty liver; Heart Murmur; iw Pancreatitis; polyp; - PSHx: 10:51 Appendectomy; Cholecystectomy; Lumpectomy of breast; right knee surgery; right iw lymphectomy; Total abdominal hysterectomy; Screenin:52 [facility] ED Fall Risk Assessment (Adult) Score/Fall Risk Level 0 - 2 = Low Risk. Abuse iw screen: Denies threats or abuse. Denies injuries from another. Nutritional screening: No deficits noted. Tuberculosis screening: No symptoms or risk factors identified. Assessment: 11:52 General: Appears in no apparent distress. Behavior is calm, cooperative. Pain: iw Complains of pain in chest, right leg and left leg. Pain:. Neuro: Level of Consciousness is awake, alert, obeys commands, Oriented to person, place, time, situation. Vital Signs: 10:50 BP 121 / 63; Pulse 85; Resp 20; Temp 98.1; Pulse Ox 100% on R/A; Weight 113.4 kg; iw Height 5 ft. 4 in. (162.56 cm); 10:50 Body Mass Index 42.91 (113.40 kg, 162.56 cm) iw ED Course: 10:40 Patient arrived in ED. am2 10:41 Annalise Souza FNP-C is Private Physician. am2 10:50 Grant Baldwin DO is Attending Physician. ms3 10:51 Triage completed. iw 10:52 Arm band placed on. iw 11:17 Chest Pa And Lat (2 Views) XRAY In Process Unspecified. EDMS 11:34 Le Hunter, RN is Primary Nurse. iw 11:52 No provider procedures requiring assistance completed. Patient did not have IV access iw during this emergency room visit. Administered Medications: No medications were administered Medication: 11:52 VIS not applicable for this client. iw Outcome: 12:21 Discharge ordered by . ms3 12:34 Patient left the ED. iw Signatures: Dispatcher [employer] EDMS Le Hunter RN RN Rere Guerrero am Grant Baldwin DO DO ms3
--- NOTE | 2022-04-30 12:22 | EDPHYS ---
Physician Documentation [facility] Name: Zenaida Goss Age: 62 yrs Sex: Female : 1960 Arrival Date: 04/30/2022 Time: 10:40 Bed DIS1 Private MD: Annalise Frazier ED Physician Grant Baldwin HPI: 04/30 11:04 This 62 yrs old Female presents to ER via Ambulatory with complaints of Ear ms3 Pain, Cough, Breathing Difficulty. 11:04 62-year-old female with past medical history of anemia, breast cancer, nonalcoholic ms3 liver cirrhosis, esophageal varices presents for cough, URI, ear pain that has been ongoing for 2 weeks. Patient states she has seen her primary care physician, Zonia frazier, and was started on Levaquin. Historical: - Allergies: 10:51 Demerol; iw 10:51 Dilaudid; iw 10:51 Morphine (Anaphylaxis); iw 10:51 Zofran; iw - Home Meds: 10:51 Creon Oral [Active]; Lactulose Oral [Active]; Lasix Oral [Active]; Protonix Oral iw [Active]; rifaximin Oral [Active]; Spironolactone Oral [Active]; - PMHx: 10:51 Anemia; breast cancer; Cirrhosis; ESOPHAGEAL VARACIES; fatty liver; Heart Murmur; iw Pancreatitis; polyp; - PSHx: 10:51 Appendectomy; Cholecystectomy; Lumpectomy of breast; right knee surgery; right iw lymphectomy; Total abdominal hysterectomy; ROS: 11:04 Constitutional: Negative for fever, and chills. Neck: Negative for injury, pain, and ms3 swelling, Cardiovascular: Negative for chest pain, and palpitations. 11:04 Abdomen/GI: Negative for abdominal pain, nausea, vomiting, diarrhea, and constipation, Skin: Negative for injury, rash, and discoloration. 11:04 ENT: Positive for ear pain. 11:04 Respiratory: Positive for cough. 11:04 All other systems are negative. Exam: 11:04 Constitutional: This is a well developed, well nourished patient who is awake, alert, ms3 and in no acute distress. Head/Face: Normocephalic, atraumatic. Neck: Trachea midline, no cervical lymphadenopathy. Supple, full range of motion without nuchal rigidity, or vertebral point tenderness. No Meningismus. Chest/axilla: Normal chest wall appearance and motion. Nontender with no deformity. Cardiovascular: Regular rate and rhythm with a normal S1 and S2. No gallops, murmurs, or rubs. Normal PMI, no JVD. No pulse deficits. Respiratory: Lungs have equal breath sounds bilaterally, clear to auscultation and percussion. No rales, rhonchi or wheezes noted. No increased work of breathing, no retractions or nasal flaring. Abdomen/GI: Soft, non-tender, with normal bowel sounds. No distension or tympany. No guarding or rebound. No evidence of tenderness throughout. Skin: Warm, dry with normal turgor. Normal color with no rashes, no lesions, and no evidence of cellulitis. MS/ Extremity: Pulses equal, no cyanosis. Neurovascular intact. Full, normal range of motion. Vital Signs: 10:50 BP 121 / 63; Pulse 85; Resp 20; Temp 98.1; Pulse Ox 100% on R/A; Weight 113.4 kg; iw Height 5 ft. 4 in. (162.56 cm); 10:50 Body Mass Index 42.91 (113.40 kg, 162.56 cm) iw MDM: 11:04 Patient medically screened. ms3 12:25 Differential diagnosis: otitis externa, acute otalgia, Upper respiratory tract ms3 infection. Data reviewed: vital signs, nurses notes, radiologic studies, plain films, and as a result, I will discharge patient. Consideration of Admission/Observation Escalation of care including admission/observation considered. No emergent medical condition requiring admission identified at this time.. I considered the following discharge prescriptions or medication management in the emergency department I discussed and recommended Over The Counter medications, Antibiotics: At this time antibiotics are not recommended. Test considered but Not performed: Labs: Patient with negative flu and COVID test x2. Counseling: I had a detailed discussion with the patient and/or guardian regarding: the historical points, exam findings, and any diagnostic results supporting the discharge/admit diagnosis, radiology results, the need for outpatient follow up, to return to the emergency department if symptoms worsen or persist or if there are any questions or concerns that arise at home. ED course: Patient alert and orient x4, no apparent distress, nontoxic, ambulatory in emergency department, speaking full sentences. Patient follow-up with her primary care physician in 2 to 3 days. Patient understands agrees with plan. All questions were answered.. 04/30 11:03 Order name: Chest Pa And Lat (2 Views) XRAY; Complete Time: 12:13 ms3 Administered Medications: No medications were administered Disposition Summary: 04/30/22 12:21 Discharge Ordered Location: Home ms3 Condition: Stable ms3 Diagnosis - Acute upper respiratory infection, unspecified ms3 - Cough ms3 - Myalgia ms3 Followup: ms3 - With: Private Physician - When: 2 - 3 days - Reason: Recheck today's complaints Discharge Instructions: - Discharge Summary Sheet ms3 - Cool Mist Vaporizer ms3 - Viral Respiratory Infection, [id number] ms3 - Cough, Adult ms3 Forms: - Medication Reconciliation Form ms3 - Thank You Letter ms3 - Antibiotic Education ms3 - Prescription Opioid Use ms3 Prescriptions: - Nasacort 55 mcg Nasal aerosol,spray - spray 2 spray by INTRANASAL route once daily; 1 bottle; Refills: 0, Product ms3 Selection Permitted - guaifenesin 100 mg/5 mL Oral liquid - take 10 milliliter by ORAL route every 4 hours as needed; 200 milliliter; ms3 Refills: 0, Product Selection Permitted Signatures: Dispatcher [employer] Le Sanchez RN RN Grant Luz DO DO ms3
[2022-04-30 12:55] VITALS: BP 121/63; TEMP 98.1; O2SAT 100
== END 2022-04-30 12:34 | disposition home or self-care (01) ==
LOC: ER 10:35
DX: J06.9 Acute upper respiratory infection, unspecified (principal); M79.10 Myalgia, unspecified site; K74.60 Unspecified cirrhosis of liver; Z88.5 Allergy status to narcotic agent; Z88.8 Allergy status to other drugs, medicaments and biological substances; Z85.3 Personal history of malignant neoplasm of breast
CPT/HCPCS: 71046; 99282

== ENCOUNTER 2022-06-06 17:00 | Emergency (ER) | payer OTHER ==
--- OUTSIDE RECORDS SUMMARY | 2022-06-06 17:15 | XMS REPORT | Continuity of Care Document ---
:1960 Author Organization [facility] Address [address] [place]. [address] [place] [address] Care Team Providers Name Role Phone Madhu Miranda Primary Care Physician Unavailable Annalise Souza Attending Clinician Unavailable Madhu Miranda Attending Clinician Unavailable BEBETO WARD Attending Clinician Unavailable MD SHARITA SURESH Attending Clinician Unavail able RAFAEL ARORA Attending Clinician Unavailable MD JOHNNY CURRY Attending Clinician Unavailable ESTEPHANIA FLOOD Attending Clinician Unavailable Estephania Flood MD Attending Clinician EMILY SALGADO Attending Clinician Unavailable Emily Salgado MD Attending Clinician Rhoda Erickson RN Attending Clinician Unavailable Stevo Hoskins DO Attending Clinician Jeremy Sandoval MD Attending Clinician [phone] FLORIAN AYERS Attending Clinician Unavailable Florian Ayers DO Attending Clinician Charline HENSLEY, [facility] Hodan Attending Clinician Nancy HENSLEY, Nakia Attending Clinician Consuelo HENSLEY, Aziza Attending Clinician Umang HENSLEY, Bebeto Sanchez Attending Clinician Verónica HENSLEY, Carolin Diaz Attending Clinician Amandeep HENSLEY, Vandana Mae Attending Clinician [phone] Thomas HENSLEY, Elias Attending Clinician Karlo HENSLEY, Handy Blanco Attending Clinician [phone] Nafisa HENSLEY, Jefferson Lisa Attending Clinician Jose HENSLEY, Willian Snowden Attending Clinician Ronnie HENSLEY, Mahnaz Attending Clinician Feng Burgos Attending Clinician Sukhdev KOENIG Attending Clinician Unavailable Sukhdev Fajardo Attending Clinician Doctor Unassigned, [place] Attending Clinician Unavailable [facility], [facility]opedic Attending Clinician Unavailabl e IBIKUNCRISTOBAL, FOLCRYSTALO F Attending Clinician Unavailable Ibikunle BRAKE REPAIR MECHANIC, Folusho F Attending Clinician Frances Cruz RN Attending Clinician Unavailable LEXIE SHEFFIELD Attending Clinician Unavailable Only, Ang Db Test Attending Clinician Unavailable Unknown, Attending Attending Clinician Unavailable GARTH CARLOS Attending Clinician Unavailable Claudia REYES, Madiha Mittal Attending Clinician Cristina HENSLEY, Rene Hess Attending Clinician Millie HENSLEY, Shaina Attending Clinician MD NAKIA CRUZ Attending Clinician Unavailable TERRI GERMAN Attending Clinician Unavailable MD SHARITA SURESH Attending Clinician Unavailable MD JEREMY SANDOVAL Attending Clinician Unavailable Lab, Adc Fam Pob I Attending Clinician Unavailable Dulce Miller Attending Clinician Nasrin REYES, Jovanny Souza Attending Clinician Unavailable SHAINA PINTO Attending Clinician Unavailable AVI DAVEY Attending Clinician Unavailable DRE MAYER Attending Clinician Unavailable SHARITA SURESH Admitting Clinician Unavailable JEREMY SANDOVAL Admitting Clinician Unavailable DO AIMEE WARD Admitting Clinician Unavailable ESTEPHANIA FLOOD Admitting Clinician Unavailable FLORIAN AYERS Admitting Clinician Unavailable BEBETO WARD Admitting Clinician Unavailable MD NAKIA CRUZ Admitting Clinician Unavailable DO STEVO HOSKINS Admitting Clinician Unavailable Sukhdev KOENIG Admitting Clinician Unavailable AZALEA GREEN Admitting Clinician Unavailable GARTH CARLOS Admitting Clinician Unavailable Shaina Pinto MD Admitting Clinician MD SHARITA SURESH Admitting Clinician Unavailable MD BEBETO WARD Admitting Clinician Unavailable MD JEREMY SANDOVAL Admitting Clinician Unavailable MD NAKIA CRUZ Admitting Clinician Unavailable SHAINA PINTO Admitting Clinician Unavailable AVI DAVEY Admitting Clinician Unavailable DRE MAYER Admitting Clinician Unavailable Payers Payer Name Policy Type Policy Number Effective Date Expiration Date [facility] [id number] 2019 CHOICE 00:00:00 Problems Condition Condition Condition Status Onset Resolution Last Treating Co mments Source Name Details Category Date Date Treatment Clinician Date Abdominal Abdominal Disease Active 2021-04 Met [facility] pain, pain, 04-27 unspecifie unspecifie 00:00: Ho spita d d 00 l abdominal abdominal location location Pancreatic Pancreatic Disease Active 2021-04 Overview : Methodi cyst cyst 0-[address] 00:00: g of this Hospita 00 note l might be different from the original. Added automatic ally from request for surgery [id number] Gastritis Gastritis Disease Active Met hodi without without 01-02 st bleeding, bleeding, 00:00: [facility] unspecifie [...] Added automatic ally from request for surgery [id number] Pancolitis Pancolitis Disease Active U nivers 6-21 ity of 00:00: [place] 00 Medical Branch Arrhythmia Arrhythmia Disease Active U nivers 6-21 ity of 00:00: [place] 00 Medical Branch Ventricula Ventricula Disease Active U nivers r r 6-21 it[place] of tachycardi [place]cardi [place] Other Other Disease Active [facility] cirrhosis cirrhosis - ity of of liver of liver 00:00: [place] 00 Medical Branch ANAYA ANAYA Disease Active Univers (nonalcoho (nonalcoho 6- it y of lic lic 00:00: [place] steatohepa steatohepa 00 Me dical titis) titis) Branch Hypokalemi Hypokalemi Disease Active U nivers a a 6-21 ity of 00:00: [place] 00 Medical Branch Acute Acute Disease Active Univers colitis colitis 6-21 ity of 00:00: [place] 00 Medical Branch Abdominal Abdominal Disease Active Met hodi pain, pain, 3- st acute acute 00:00: Hospita 00 l [...] 5- ity of obstructio obstructio 00:00: [place] n) 00 Medical Branch Increased Increased Disease Active [facility] 09[facility]30 [facility] level 00:[facility] Medical 00 Center Epigastric Epigastric Disease Active [facility] abdominal abdominal 09-30 [facility] pain pain 00:00: Medical 00 Center Other Other Disease Active [facility] St cirrhosis cirrhosis 09-30 [facility] of liver of liver 00:00: Medica l 00 [place] Intractabl Intractabl Disease Active U nivers e nausea e nausea 08-09 ity of and and 00:00: [place] vomiting vomiting 00 Medica Branch Morbid Morbid Disease Active Univers obesity [...] & Disease Active Unive rs vomiting vomiting - ity of 00:00: [place] 00 Medical Branch Primary Primary Diagnosis Active 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 of itis of - [facility] right knee right knee [facility] Primary Primary Diagnosis Active 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 of itis of - [facility] left knee left knee [facility] Allergies, Adverse Reactions, Alerts Allergy Allergy [...] PHONE INGREDI 09-30 ity of 00:00: [place] [facility] Hydromor Propensi Active Itching Metho di phone ty to 12 st adverse 00:00: Hospita reaction 00 l s to drug Morphine Propensi Active Other (See 2019-04 Tightness Methodi ty to Comments) 05-[address] adverse 00:00: Hospita reaction 00 l s to drug Latex Propensi Active Rash 2016-[address] [facility] [facility] adverse 00:00: Medical reaction 00 Center s Latex Propensi Active Rash 2016-04 Methodi ty [address] adverse 00:00: Hospita reaction 00 l s to drug MORPHINE DRUG Active High Anaphylaxis Uni vers INGREDI 06-30 ity of 00:00: [place] [address] Medical Branch Morphine Propensi Active Shortness Of Throat [facility] ty to Breath, 06-30 closes, [facility] adverse Swelling 00:00: tongue Medical reaction 00 swelling Center s MORPHINE Adverse Active Info Not Commo n Reaction Available Spiri t - [facility] Social History Social Habit Start Date Stop Date Quantity Comments Source History [facility]OH [facility] Alcohol Std Drinks History SDOH [facility] Alcohol Binge Exposure to 2022-04-05 2022-04-15 Not sure [facility] SARS-CoV-2 00:00:00 20:13:00 [place] Medical (event) Branch History SDOH 2020-03-19 2020-03-19 [facility] Alcohol Frequency 00:00:00 00:00:00 Alcohol intake 2018-10-03 2018-10-[address] [facility] es 00:00:00 00:00:00 non-drinker of Medical Ce nter alcohol (finding) Tobacco use and 2016-06-30 2016-06-[address] [facility] exposure 00:00:00 00:00:00 [facility] Center Sex Assigned At [address] [facility] 00:00:00 00:00:00 Medical Center Smoking Status Start Date Stop Date Source Never smoked tobacco [facility] Medications Ordered Filled Start Stop [...] EC 04 Medical tablet Branch albuterol Yes [id number] 2{puff} Inhale 2 Univers 90 1-05 Puffs ity of mcg/actuati 00:00: every 4 Quang as on inhaler 00 (four) Medical hours as Branch needed for Wheezing or Shortness of Breath. albuterol Yes [id number] 2.5mg Inhale 3 Univers 2.5 mg /3 1-05 mL every 4 ity of mL (0.083 00:00: (four) [place] %) 00 hours. May Medical nebulizer also Branch solution nebulize one extra every 6 hours. furosemide 2022- Yes [id number] 20mg Take 1 Univers 20 mg 04-15 tablet by ity of tablet 00:00: 05:59 mouth [place] 00 :00 every Medical morning Branch and evening for 5 days. predniSONE 2022- Yes [id number] 20mg Take 1 Univers 20 mg 04-1508 tablet by ity of tablet 00:00: 05:59 mouth in [place] 00 :00 the Medical morning Branch and 1 tablet in the evening. Do all this for 2 days. FENTanyl PF 2021-04 No 50ug 50 mcg, Un marline (SUBLIMAZE -31 Slow IV ity o f (PF)) 04:30: 03:33 Push, [place] injection 00 :00 ONCE, 1 Medical 50 mcg dose, On Branch 04/09/22 at 2230, VERN cefTRIAXone 2021-04 No 1000mg 1,000 mg, Univers (ROCEPHIN) 04-10 IV ity of 1,000 mg in 03:00: 03:45 Piggyback, [place] NaCl 0.9% 00 :00 ONCE, 1 Medical (NS) 50 mL dose, On Bran h MINI-BAG [facility] 04/09/22 at 2100, Administer over 30 Minutes, 50 mL
Reas on for Anti-Infec tive: Documented Infection< br>Documen josemanuel Infection Site: Urine<br&g t;Duration of Therapy: 7 days lactulose 2021-04 No 30mL 30 mL, Unive rs (CEPHULAC) 04-10 Oral, ity of solution 30 03:00: 03:10 ONCE[place] 1 [place] mL 00 :00 dose, On Medical Fri [place] 04/09/22 at 2100, VERN KCL 10 mEq 2021-04 Yes [id number] 10meq Take 1 Univers tablet 2-30 [id number] tablet by ity of 00:00: mouth in [place] 00 the Medical morning. Branch ciprofloxac 2021-04 Yes [id number] 500mg Take 1 Univers in HCl 500 2-30 [id number] tablet by it y of mg tablet 00:00: mouth in [facility] 00 the Medical morning Branch and 1 tablet in the evening. KCL 10 mEq 2021-04 Yes [id number] 10meq Take 1 Univers tablet 2-30 [id number] tablet by ity of 00:00: mouth in [place] 00 the Medical morning. Branch ciprofloxac 2021-04 Yes [id number] 500mg Take 1 Univers in HCl 500 2-30 [id number] tablet by it y of mg tablet 00:00: mouth in [facility] s 00 the Medical morning Branch and 1 tablet in the evening. psyllium 2021-04- No 1{packe Q48H Take 1 Met hodi husk 05-01 t} packet by st sugar-free 00:00: 05:59 mouth Hospi ta (METAMUCIL) 00 :00 every l 6 gram other day packet for 30 days. psyllium 2021-04- No 1{packe Q48H Take 1 Met hodi husk [...] times a day. lipase-prot 2021-04 Yes 1{capsu Q.60494312 Take 1 Methodi ease-amylas 1-19 le} [id number] capsule by st e (CREON) 18:47: 3D [...] times a day. lipase-prot 2021-04 Yes 1{capsu Q.26046513 Take 1 Methodi [facility]-amylas 1-19 le} [id number] capsule by st e (CREON) 18:47: 3D [...] times a day. lipase-prot 2021-04 Yes 1{capsu Q.08209545 Take 1 Methodi [facility]-amylas 1-19 le} [id number] capsule by st e (CREON) 18:47: 3D [...] times a day. lipase-prot 2021-04 Yes 1{capsu Q.24299293 Take 1 Methodi ease-amylas 1-19 le} [id number] capsule by st e (CREON) 18:47: 3D mouth 3 Hospi ta 36,000-114, 48 (three) l 000- times a 180,000 day. unit capsule,del ayed release(DR/ EC) ketorolac 2021-04- No 15mg 15 mg, Unive rs (TORADOL) 04-18 Slow IV ity of injection 00:00: 23:59 [place], Q6H, [place] 15 mg 00 :00 4 doses, Medical First dose Branch on Tue02/15/22 at 1800, Last dose on Tue02/16/22 at 1200, Routine iopamidol 2021-04- No [id number] 74mL 74 mL, U nivers (ISOVUE 04-17 [...] 02/15/22 at 1500, Routine ondansetron 2021-04 Yes [id number] 4mg Take 1 Univers 4 mg 1-07 tablet by ity of disintegrat 00:00: mouth [place] ing tablet 00 every 8 Medica l (eight) Branch hours as needed for Nausea and Vomiting (N/V). dicyclomine 2021-04 Yes [id number] 20mg Take 1 Univers 20 mg 1-07 tablet by ity of tablet 00:00: mouth 4 [place] 00 (four) Medical times Branch daily. loperamide 2021-04 Yes [id number] 2mg Take 1 U nivers 2 mg 1-07 capsule by ity of capsule 00:00: mouth [place] 00 every 4 Medical (four) Branch hours as needed for Diarrhea. Not to exceed 16mg daily. ondansetron 2021-04 Yes [id number] 4mg Take 1 Univers 4 mg 1-07 tablet by ity of disintegrat 00:00: mouth [place] ing tablet 00 every 8 Medica l (eight) Branch hours as needed for Nausea and Vomiting (N/V). dicyclomine 2021-04 Yes [id number] 20mg Take 1 Univers 20 mg 1-07 tablet by ity of tablet 00:00: mouth 4 [place] 00 (four) Medical times Branch daily. loperamide 2021-04 Yes [id number] 2mg Take 1 U nivers 2 mg 1-07 capsule by ity of capsule 00:00: mouth [place] 00 every 4 Medical (four) Branch hours as needed for Diarrhea. Not to exceed 16mg daily. ondansetron 2021-04 Yes [id number] 4mg Take 1 Univers 4 mg 1-07 tablet by ity of disintegrat 00:00: mouth [place] ing tablet 00 every 8 Medica l (eight) Branch hours as needed for Nausea and Vomiting (N/V). dicyclomine 2021-04 Yes [id number] 20mg Take 1 Univers 20 mg 1-07 tablet by ity of tablet 00:00: mouth 4 [place] 00 (four) Medical times Branch daily. loperamide 2021-04 Yes [id number] 2mg Take 1 U nivers 2 mg 1-07 capsule by ity of capsule 00:00: mouth [place] 00 every 4 Medical (four) Branch hours as needed for Diarrhea. Not to exceed 16mg daily. furosemide 2021-04- No 40mg Q.5D Take 1 Meth idmitri (Lasix) 40 0-27 11-27 tablet (40 st [...] QD Take 1 Met hodi e 0-27 11- tablet (40 st (PROTONIX) 00:00: 05:59 mg [...] Q.25D Take 30 mL Methodi 20 gram/30 0- ([address] mL solution 00:00: 05:59 [...] Q.25D Take 10 mL Methodi (CARAFATE) 0-07 03- ([address] 100 mg/mL 00:00: 05:59 [...] Q.25D Take 30 mL Methodi 20 gram/30 0- ([address] mL solution 00:00: 05:59 [...] Take 1 Meth dimitri (Lasix) 40 0-07 03-27 tablet (40 st mg tablet 00:00: 05:59 [...] mg) 30 days. capsule HYDROcodone 2021-04- No [id number] 1{tbl} Q4H Take 1 Methodi -acetaminop 0-27 11-[address] hen ([place]) 00:00: 05:59 mouth [facility] 10-325 mg 00 :00 every 4 l per tablet (four) hours as needed for severe pain for up to 10 days .acute pain. Max Daily Amount: 6 tablets HYDROcodone 2021-04- No [id number] 1{tbl} Q4H Take 1 Methodi -acetaminop 0-27 11-[address] hen ([place]) 00:00: 05:59 mouth [facility] 10-325 mg 00 :00 every 4 l per tablet (four) hours as needed for severe pain for up to 10 days .acute pain. Max Daily Amount: 6 tablets HYDROcodone 2021-04- No [id number] 1{tbl} Q4H Take 1 Methodi -acetaminop 0-27 11-[address] hen ([place]) 00:00: 05:59 mouth [facility] 10-325 mg 00 :00 every 4 l per tablet (four) hours as needed for severe pain for up to 10 days .acute pain. Max Daily Amount: 6 tablets HYDROcodone 2021-04- No [id number] 1{tbl} Q4H Take 1 Methodi -acetaminop 0-27 11-[address] hen ([place]) 00:00: 05:59 mouth [facility] 10-325 mg [...] 2 l (two) times a day. famotidine 2022-1 Yes 20mg Q.5D Take 1 Metho di [...] mouth 2 (two) times a day. polyethylen 2-0 2022- No 17g QD Take [...] Q.5D Take 1 Meth dimitri (Lasix) 40 -03 02- tablet (40 st mg tablet 00:00: 04:59 mg total) Ho spita 00 :00 by mouth 2 l (two) times a day for 30 days. pantoprazol 2021-2021- No 40mg QD Take 1 Met hodi e -03 02- tablet (40 st (PROTONIX) 00:00: 04:59 mg total) H ospita 40 MG EC 00 :00 by mouth l tablet daily for 30 days. spironolact 2021- No 50mg Q.5D Take 1 Met hodi one 01-04- tablet (50 st (ALDACTONE) 00:00: 04:59 mg [...] l (220 mg) 30 days. capsule lactulose 2021-2021- No 20g Q.25D Take 30 [...] 10- tablet (40 st mg tablet 00:00: 00:00 [...] No 1{capsu QD Take 1 Methodi sulfate -03 02- le} capsule by st (ZINCATE) 00:00: 00:00 [...] No 1{capsu QD Take 1 Methodi sulfate -03 02- le} capsule by st (ZINCATE) 00:00: 00:00 [...] times a day. pancrelipas 2021- No 2{capsu Q.78119924 Take 2 Methodi e, 12-18 le} [id number] capsules st lipase-prot 00:00: 04:59 3D by mouth 3 Hospita [facility] 00 :00 (three) l e, (CREON) times a 6,000-19,00 day with 0 -30,000 meals for unit 30 days. capsule,del ayed release(DR/ EC) capsule methocarbam 0 2021- No 500mg Q.38906707 Take 1 Methodi oL 12-[id number] (ROBAXIN) 00:00: 04:59 3D (500 mg [facility] 500 MG 00 :00 total) by l tablet mouth 3 (three) times a day as needed (abdominal cramping) for up to 30 days. pancrelipas 2021- No 2{capsu Q.82627039 Take 2 Methodi e, 12-18 le} [id number] capsules st lipase-prot 00:00: 04:59 3D by mouth 3 [facility]osp[facility] 00 :00 (three) l e, (CREON) times a 6,000-19,00 day with 0 -30,000 meals for unit 30 days. capsule,del ayed release(DR/ EC) capsule methocarbam 2021- No 500mg Q.23894417 Take 1 Methodi oL 12-[id number] (ROBAXIN) 00:00: 04:59 3D (500 mg [facility] 500 MG 00 :00 total) by l tablet mouth 3 (three) times a day as needed (abdominal cramping) for up to 30 days. pancrelipas 2021- No 2{capsu Q.31073070 Take 2 Methodi e, 12-18 le} [id number] capsules st lipase-prot 00:00: 04:59 3D by mouth 3 [facility]osp[facility] 00 :00 (three) l e, (CREON) times a 6,000-19,00 day with 0 -30,000 meals for unit 30 days. capsule,del ayed release(DR/ EC) capsule methocarbam 0 2021- No 500mg Q.[id number] Take 1 Methodi oL 12-[id number] (ROBAXIN) 00:00: 04:59 3D (500 mg [facility] 500 MG 00 :00 total) by l tablet mouth 3 (three) times a day as needed (abdominal cramping) for up to 30 days. pancrelipas 2021- No 2{capsu Q.97110504 Take 2 Methodi e, 12-18 le} [id number] capsules st lipase-prot 00:00: 04:59 3D by mouth 3 [facility]osp[facility] 00 :00 (three) l e, (CREON) times a 6,000-19,00 day with 0 -30,000 meals for unit 30 days. capsule,del ayed release(DR/ EC) capsule methocarbam 2021- No 500mg Q.72062829 Take 1 Methodi oL 12-[id number] (ROBAXIN) 00:00: 04:59 3D (500 mg [facility] 500 MG 00 :00 total) by l tablet mouth 3 (three) times a day as needed (abdominal cramping) for up to 30 days. pancrelipas 2021- No 2{capsu Q.96311898 Take 2 Methodi e, 12-18 le} [id number] capsules st lipase-prot 00:00: 04:59 3D by mouth 3 [facility]osp[facility] 00 :00 (three) l e, (CREON) times a 6,000-19,00 day with 0 -30,000 meals for unit 30 days. capsule,del ayed release(DR/ EC) capsule methocarbam 2021- No 500mg Q.[id number] Take 1 Methodi oL 12-[id number] (ROBAXIN) 00:00: 04:59 3D (500 mg [facility] 500 MG 00 :00 total) by l tablet mouth 3 (three) times a day as needed (abdominal cramping) for up to 30 days. pancrelipas 2021- No 2{capsu Q.[id number] Take 2 Methodi e, 12-18 le} [id number] capsules st lipase-prot 00:00: 04:59 3D by mouth 3 [facility] 00 :00 (three) l e, (CREON) times a 6,000-19,00 day with 0 -30,000 meals for unit 30 days. capsule,del ayed release(DR/ EC) capsule methocarbam 2021- No 500mg Q.[id number] Take 1 Methodi oL 12-[id number] (ROBAXIN) 00:00: 04:59 3D (500 mg [facility] 500 MG 00 :00 total) by l tablet mouth 3 (three) times a day as needed (abdominal cramping) for up to 30 days. pancrelipas 2021- No 2{capsu Q.05331377 Take 2 Methodi e, 12-18 le} [id number] capsules st lipase-prot 00:00: 04:59 3D by mouth 3 [facility] 00 :00 (three) l e, (CREON) times a 6,000-19,00 day with 0 -30,000 meals for unit 30 days. capsule,del ayed release(DR/ EC) capsule methocarbam 2021- No 500mg Q.71334614 Take 1 Methodi oL 12-[id number] (ROBAXIN) 00:00: 04:59 3D (500 mg [facility] 500 MG 00 :00 total) by l tablet mouth 3 (three) times a day as needed (abdominal cramping) for up to 30 days. HYDROcodone 2021- No [id number] 1{tbl} Q6H Take 1 Methodi -acetaminop 12-[address] [employer] ([place]) 00:00: 00:00 mouth [facility] 10-325 mg 00 :00 every 6 l per tablet (six) hours as needed for severe pain for up to 10 days .acute pain. Max Daily Amount: 4 tablets HYDROcodone 2021- No [id number] 1{tbl} Q6H Take 1 Methodi -acetaminop 12-[address] hen ([place]) 00:00: 00:00 mouth [facility] 10-325 mg 00 :00 every 6 l per tablet (six) hours as needed for severe pain for up to 10 days .acute pain. Max Daily Amount: 4 tablets HYDROcodone 2022-0 2021- [place] [id number] 1{tbl} Q6H Take 1 Methodi -acetaminop 12-[address] hen ([employer]ra[employer]) 00:00: 00:00 mouth [facility] 10-325 mg 00 :00 every 6 l per tablet (six) hours as needed for severe pain for up to 10 days .acute pain. Max Daily Amount: 4 tablets HYDROcodone 2-0 2021- No [id number] 1{tbl} Q6H Take 1 Methodi -acetaminop 12-[address] hen ([employer]) 00:00: 00:00 mouth [facility] 10-325 mg 00 :00 every 6 l per tablet (six) hours as needed for severe pain for up to 10 days .acute pain. Max Daily Amount: 4 tablets HYDROcodone 2-0 2021- No [id number] 1{tbl} Q6H Take 1 Methodi -acetaminop 12-[address] hen ([employer]) 00:00: 00:00 mouth [facility] 10-325 mg 00 :00 every 6 l per tablet (six) hours as needed for severe pain for up to 10 days .acute pain. Max Daily Amount: 4 tablets HYDROcodone 2-0 2021- No 1{tbl} Q6H Take 1 Methodi -acetaminop 12-[address] hen ([employer]) 00:00: 00:00 mouth [facility] 10-325 mg 00 :00 every 6 l per tablet (six) hours as needed for severe pain for up to 10 days .acute pain. Max Daily Amount: 4 tablets HYDROcodone 2022-0 2021- [place] [id number] 1{tbl} Q6H Take 1 Methodi -acetaminop 12-[address] hen ([employer]) 00:00: 04:59 mouth [facility] 10-325 mg [...] mouth 2 (two) times a day. pantoprazol 2021-2021- No 40mg QD Take 1 Met hodi e 8- 08-25 tablet (40 st (PROTONIX) 14:06: 00:00 mg total) H ospita 40 MG EC 05 :00 by mouth l tablet daily. pantoprazol 2- No 40mg QD Take 1 Met [...] vomiting for up to 30 days. furosemide 2022-0 2022- No 40mg [...] times a day for 30 days. sucralfate 2-0 2022- No 1g Q.25D Take 10 mL [...] 40mg QD Take 1 Met hodi e -03 01- tablet (40 st (PROTONIX) 00:00: 00:00 mg [...] nightly for 30 days. HYDROcodone 2021- No [id number] 1{tbl} Q6H Take 1 Methodi -acetaminop 8-25 09-[address] hen ([place]) 00:00: 00:00 mouth [facility] 10-325 mg 00 :00 every 6 l per tablet (six) hours as needed for severe pain for up to 10 days .acute pain. Max Daily Amount: 4 tablets HYDROcodone 2021-0 2021- No 1{tbl} Q6H Take 1 Methodi -acetaminop 8-25 09-[address] hen ([place]) 00:00: 00:00 mouth [facility] 10-325 mg 00 :00 every 6 l per tablet (six) hours as needed for severe pain for up to 10 days .acute pain. Max Daily Amount: 4 tablets HYDROcodone 2021-0 2021- No 1{tbl} Q6H Take 1 Methodi -acetaminop 8-25 -[address] [employer] ([place]) 00:00: 00:00 mouth [facility] 10-325 mg 00 :00 every 6 l per tablet (six) hours as needed for severe pain for up to 10 days .acute pain. Max Daily Amount: 4 tablets HYDROcodone 2-0 2021- No [id number] 1{tbl} Q6H Take 1 Methodi -acetaminop 8-25 -[address] [employer] ([place]) 00:00: 00:00 mouth [facility] 10-325 mg 00 :00 every 6 l per tablet (six) hours as needed for severe pain for up to 10 days .acute pain. Max Daily Amount: 4 tablets HYDROcodone 2-0 2021- No [id number] 1{tbl} Q6H Take 1 Methodi -acetaminop 8-25 -[address] [employer] ([place]) 00:00: 00:00 mouth [facility] 10-325 mg 00 :00 every 6 l per tablet (six) hours as needed for severe pain for up to 10 days .acute pain. Max Daily Amount: 4 tablets HYDROcodone 2-0 2021- No [id number] 1{tbl} Q6H Take 1 Methodi -acetaminop 8-25 09-[address] hen ([place]) 00:00: 00:00 mouth [facility] 10-325 mg 00 :00 every 6 l per tablet (six) hours as needed for severe pain for up to 10 days .acute pain. Max Daily Amount: 4 tablets HYDROcodone No 1{tbl} Q6H Take 1 Methodi -acetaminop 8-25 09-[address] hen ([place]) 00:00: 00:00 mouth [facility] 10-325 mg 00 :00 every 6 l per tablet (six) hours as needed for severe pain for up to 10 days .acute pain. Max Daily Amount: 4 tablets HYDROcodone 2021- No [id number] 1{tbl} Q6H Take 1 Methodi -acetaminop 8-25 09-[address] hen ([place]) 00:00: 04:59 mouth [facility] 10-325 mg 00 :00 every 6 l per tablet (six) hours as needed for severe pain for up to 10 days .acute pain. Max Daily Amount: 4 tablets pancrelipas 2021- No 1{capsu Q.[id number] Take 1 Methodi e, 8-18 08-18 le} [id number] capsule by st lipase-prot 20:41: 00:00 3D mouth 3 Ho spita [facility]amyl[facility] 22 :00 (three) l e, (CREOND) times a 12,000-38,0 day with 00 -60,000 meals. unit capsule,del ayed release(DR/ EC) capsule pancrelipas 2021- No 1{capsu Q.[id number] Take 1 Methodi e, 8-18 08-18 le} [id number] capsule by st lipase-prot 20:41: 00:00 3D mouth 3 Ho spita ease-amylas 22 :00 (three) l e, (CREOND) times a 12,000-38,0 day with 00 -60,000 meals. unit capsule,del ayed release(DR/ EC) capsule pancrelipas 2021- No 1{capsu Q.[id number] Take 1 Methodi e, 8-18 08-18 le} [id number] capsule by st lipase-prot 20:41: 00:00 3D mouth 3 Ho spita ease-amylas 22 :00 (three) l e, (CREOND) times a 12,000-38,0 day with 00 -60,000 meals. unit capsule,del ayed release(DR/ EC) capsule pancrelipas 2-2- No 1{capsu Q.[id number] Take 1 Methodi e, 8-18 08-18 le} [id number] capsule by st lipase-prot 20:41: 00:00 3D mouth 3 Ho spita ease-amylas 22 :00 (three) l e, (CREOND) times a 12,000-38,0 day with 00 -60,000 meals. unit capsule,del ayed release(DR/ EC) capsule pancrelipas 2021-2- No 1{capsu Q.[id number] Take 1 Methodi e, 818 08-18 le} [id number] capsule by st lipase-prot 20:41: 00:00 3D mouth 3 Ho spita ease-amylas 22 :00 (three) l e, (CREOND) times a 12,000-38,0 day with 00 -60,000 meals. unit capsule,del ayed release(DR/ EC) capsule pancrelipas 2021-2- No 1{capsu Q.[id number] Take 1 Methodi e, 8-18 08-18 le} [id number] capsule by st lipase-prot 20:41: 00:00 3D mouth 3 Ho spita ease-amylas 22 :00 (three) l e, (CREOND) times a 12,000-38,0 day with 00 -60,000 meals. unit capsule,del ayed release(DR/ EC) capsule pancrelipas 2021-2- No 1{capsu Q.[id number] Take 1 Methodi e, 8-18 08-18 le} [id number] capsule by st lipase-prot 20:41: 00:00 3D mouth 3 Ho spita ease-amylas 22 :00 (three) l e, (CREOND) times a 12,000-38,0 day with 00 -60,000 meals. unit capsule,del ayed release(DR/ EC) capsule pancrelipas 2-0 2- No 1{capsu Q.[id number] Take 1 Methodi e, 8-18 08-18 le} [id number] capsule by st lipase-prot 20:41: 00:00 3D [...] 2- No 40mg Q.5D Take 1 Meth dimitir (Lasix) 40 7-18 08-25 tablet (40 st [...] times a day for 30 days. acetaminoph 2021-2021- No 1{tbl} 1 tablet, Univers en-codeine 6-21 06-21 Oral, ity of (TYLENOL 06:00: 05:02 ONCE, 1 [place] #3) 300-30 00 :00 dose, On Medic al mg tablet 1 Tue Branch tablet 09/29/21 at 0100, VERN naproxen 2021- No 500mg 500 mg, Univ ers (NAPROSYN) 09-29 Oral, ity of tablet 500 06:00: 04:58 ONCE, 1 [place] mg 00 :00 dose, On Medical Tue Branch 09/29/21 at 0100, Routine naproxen Yes [id number] 500mg Take 1 Univers (NAPROSYN) 6-20 9104 tablet by ity of 500 mg 00:00: mouth 2 [place] tablet 00 (two) Medical times Branch daily with meals. naproxen Yes [id number] 500mg Take 1 Univers (NAPROSYN) 6-20 9104 tablet by ity of 500 mg 00:00: mouth 2 [place] tablet 00 (two) Medical times Branch daily with meals. naproxen Yes [id number] 500mg Take 1 Univers (NAPROSYN) 6-20 9104 tablet by ity of 500 mg 00:00: mouth 2 [place] tablet 00 (two) Medical times Branch daily with meals. naproxen Yes [id number] 500mg Take 1 Univers (NAPROSYN) 6-20 9104 [...] No 30mg 30 mg, Unive rs (TORADOL) -04-02 Intramuscu ity of injection 20:45: 20:05 lar, ONCE, [place] 30 mg 00 :00 1 dose, On Medical Geraldine Branch 04/02/21 at 1445, VERN ondansetron 2020-04 Yes [id number] 4mg Take 1 Univers 4 mg 2-23 tablet by ity of disintegrat 00:00: mouth [place] ing tablet 00 every 8 Medica l (eight) Branch hours as needed for Nausea and Vomiting (N/V). ondansetron 2020-04 Yes [id number] 4mg Take 1 Univers 4 mg 2-23 tablet by ity of disintegrat 00:00: mouth [place] ing tablet 00 every 8 Medica l (eight) Branch hours as needed for Nausea and Vomiting (N/V). ondansetron 2020-04 Yes [id number] 4mg Take 1 Univers 4 mg 2-23 tablet by ity of disintegrat 00:00: mouth [place] ing tablet 00 every 8 Medica l (eight) Branch hours as needed for Nausea and Vomiting (N/V). ondansetron 2020-04 Yes [id number] 4mg Take 1 Univers 4 mg 2-23 tablet by ity of disintegrat 00:00: mouth [place] ing tablet 00 every 8 Medica l (eight) Branch hours as needed for Nausea and Vomiting (N/V). ondansetron 2020-04 Yes [id number] 4mg Take 1 Univers 4 mg 2-23 tablet by ity of disintegrat 00:00: mouth [place] ing tablet 00 every 8 Medica l (eight) Branch hours as needed for Nausea and Vomiting (N/V). ondansetron 2020-04 Yes [id number] 4mg Take 1 Univers 4 mg 2-23 tablet by ity of disintegrat 00:00: mouth [place] ing tablet 00 every 8 Medica l (eight) Branch hours as needed for Nausea and Vomiting (N/V). ondansetron 2020-04 Yes [id number] 4mg Take 1 Univers 4 mg 2-23 [...] soft stools per day). cholecalcif 2020- No [id number] Take 2 Univers nuno, 6-26 07-27 tablets by ity of vitamin D3, 00:00: 04:59 [place] 25 mcg 00 :00 daily for Medical (,000 30 days. Branch unit) tablet cyanocobala 2020- No [id number] 1000ug inject 1 Univers min 1,000 6-26 07-27 mL under ity o f mcg/mL 00:00: 04:59 the skin [place] injection 00 :00 every 24 Medica l (twenty-fo Branch ur) hours for 30 days. KCL 20 mEq 2020- No [id number] 20meq Take 1 Univers tablet 6-26 07-27 tablet by ity of 00:00: 04:59 mouth [place] 00 :00 daily for Medical 30 days. Branch cholecalcif 2020- No [id number] Take 2 Univers nuno, 6-26 07-27 tablets by ity of vitamin D3, 00:00: 04:59 mouth [place] 25 mcg 00 :00 daily for Medical (,000 30 days. Branch unit) tablet cyanocobala 2020- No [id number] 1000ug inject 1 Univers min 1,000 6-26 07-27 mL under ity o f mcg/mL 00:00: 04:59 the skin [place] injection 00 :00 every 24 Medica l (twenty-fo Branch ur) hours for 30 days. KCL 20 mEq 2020- No [id number] 20meq Take 1 Univers tablet 6-26 07-27 tablet by ity of 00:00: 04:59 mouth [place] 00 :00 daily for Medical 30 days. Branch lactulose 2020-0 Yes 30mL Take 30 mL Un marline 10 gram/15 6-25 by mouth ity o f mL oral 18:10: daily. [place] solution 25 Medical Branch pantoprazol 0 Yes 40mg Take 40 mg Univers e 6-25 by mouth ity of (PROTONIX) 18:10: daily. [place] 40 mg EC 25 Medical tablet Branch lactulose 0 Yes 30mL Take 30 mL Un marline 10 gram/15 6-25 by mouth ity o f mL oral 18:10: daily. [place] solution 25 Medical Branch pantoprazol 0 Yes [...] ity o f mL oral 13:10: daily. [place] solution 25 Medical Branch pantoprazol Yes 40mg [...] ve to Ondansetro n proMETHazin 2020-0 Yes [id number] 12.5mg Take 1 Univers e 12.5 mg 6-25 tablet by ity o f tablet 00:00: mouth [place] 00 every 6 Medical (six) Branch hours as needed for Nausea and Vomiting (N/V) or N/V unresponsi ve to Ondansetro n. proMETHazin 2020- Yes [id number] 12.5mg Take 1 Univers e 12.5 mg 6-25 tablet by ity o f tablet 00:00: mouth [place] 00 every 6 Medical (six) Branch hours as needed for Nausea and Vomiting (N/V) or N/V unresponsi ve to Ondansetro n. proMETHazin Yes [id number] 12.5mg Take 1 Univers e 12.5 mg 6-25 tablet by ity o f tablet 00:00: mouth [place] 00 every 6 Medical (six) Branch hours as needed for Nausea and Vomiting (N/V) or N/V unresponsi ve to Ondansetro n. proMETHazin Yes [id number] 12.5mg Take 1 Univers e 12.5 mg 6-25 tablet by ity o f tablet 00:00: mouth [place] 00 every 6 Medical (six) Branch hours as needed for Nausea and Vomiting (N/V) or N/V unresponsi ve to Ondansetro n. proMETHazin 2020-0 Yes [id number] 12.5mg Take 1 Univers e 12.5 mg 6-25 tablet by ity o f tablet 00:00: mouth [place] 00 every 6 Medical (six) Branch hours as needed for Nausea and Vomiting (N/V) or N/V unresponsi ve to Ondansetro n. proMETHazin 2020-0 Yes [id number] 12.5mg Take 1 Univers e 12.5 mg 6-25 tablet by ity o f tablet 00:00: mouth [place] 00 every 6 Medical (six) Branch hours as needed for Nausea and Vomiting (N/V) or N/V unresponsi ve to Ondansetro n. proMETHazin Yes [id number] 12.5mg Take 1 Univers e 12.5 mg 6-25 tablet by ity o f tablet 00:00: mouth [place] 00 every 6 Medical (six) Branch hours as needed for Nausea and Vomiting (N/V) or N/V unresponsi ve to Ondansetro n. proMETHazin Yes [id number] 12.5mg Take 1 Univers e 12.5 mg 6-25 tablet by ity o f tablet 00:00: mouth [place] 00 every 6 Medical (six) Branch hours as needed for Nausea and Vomiting (N/V) or N/V unresponsi ve to Ondansetro n. proMETHazin Yes [id number] 12.5mg Take 1 Univers e 12.5 mg 6-25 tablet by ity o f tablet 00:00: mouth [place] 00 every 6 Medical (six) Branch hours as needed for Nausea and Vomiting (N/V) or N/V unresponsi ve to Ondansetro n. proMETHazin Yes [id number] 12.5mg Take 1 Univers e 12.5 mg 6-25 tablet by ity o f tablet 00:00: mouth [place] 00 every 6 Medical (six) Branch hours as needed for Nausea and Vomiting (N/V) or N/V unresponsi ve to Ondansetro n. proMETHazin Yes [id number] 12.5mg Take 1 Univers e 12.5 mg 6-25 tablet by ity o f tablet 00:00: mouth [place] 00 every 6 Medical (six) Branch hours as needed for Nausea and Vomiting (N/V) or N/V unresponsi ve to Ondansetro n. proMETHazin Yes [id number] 12.5mg Take 1 Univers e 12.5 mg 6-25 tablet by ity o f tablet 00:00: mouth [place] 00 every 6 Medical (six) Branch hours as needed for Nausea and Vomiting (N/V) or N/V unresponsi ve to Ondansetro n. furosemide 2020-0 2020- No [id number] 40mg Take 1 Univers 40 mg 6-25 07-26 tablet by ity of tablet 00:00: 04:59 mouth [place] 00 :00 every Medical morning Branch and evening for 30 days. lipase-prot 2020- No [id number] 2{capsu Take 2 Univers ease-amylas 6-25 07-26 le} capsules ity of e 00:00: 04:59 by mouth 3 [place] 12,000-38,0 00 :00 (three) Medic al 00 -60,000 times Branch unit daily with capsule meals for 30 days. lactobacill 2020- No [id number] .5mg Take 1 Univers us 6-25 07-26 tablet by ity of acidophilus 00:00: 04:59 mouth 2 [place] 00 :00 (two) Medical times Branch daily for 30 days. furosemide 2020- No [id number] 40mg Take 1 Univers 40 mg 6-25 07-26 tablet by ity of tablet 00:00: 04:59 mouth [place] 00 :00 every Medical morning Branch and evening for 30 days. lipase-prot 2020- No [id number] 2{capsu Take 2 Univers ease-amylas 6-25 07-26 le} capsules ity of e 00:00: 04:59 by mouth 3 [place] 12,000-38,0 00 :00 (three) Medic al 00 -60,000 times Branch unit daily with capsule meals for 30 days. lactobacill 2020- No [id number] .5mg Take 1 Univers us 6-25 07-26 tablet by ity of acidophilus 00:00: 04:59 mouth 2 [place] 00 :00 (two) Medical times Branch daily for 30 days. vancomycin 2020- No [id number] 125mg Take 1 Univers 125 mg 6-25 07-06 capsule by ity of capsule 00:00: 04:59 mouth 4 [place] 00 :00 (four) Medical times Branch daily for 10 days. vancomycin 2020- No [id number] 125mg Take 1 Univers 125 mg 6-25 [...] Indication s: acute pain cephALEXin 2020- No [id number] 500mg Take 1 Univers 500 mg 10-03 capsule by ity of capsule 00:00: 04:59 mouth 4 [place] 00 :00 (four) Medical times Branch daily for 5 days. cephALEXin 2020- No [id number] 500mg Take 1 Univers 500 mg 10-03 [...] 21:15: First dose [place] mg 00 on [facility] 09/30/20 at Branch 1615, Until Discontinu [...] Routine cholecalcif 0 Yes 2000U 2,000 [facility] ers nuno 09-29 Units, ity of (vitamin 20:00: Oral, [place] D3) tablet 00 DAILY, Medical 2,000 Units [...] Nausea and Vomiting (N/V) iopamidol 2020- No [id number] 100mL 100 mL, Univers (ISOVUE 09-29 Intravenou [...] 00:00: 00:00 - [facility] 00 :00 [facility] flu vaccine 2019- No .5mL 0.5 [...] Pain (scale 4-6). lactulose 2019-0 2020- No [id number] 30mL Take 30 mL Univers 10 gram/15 08-10- by mouth 2 it y of mL oral 00:00: 04:59 (two) [place] solution 00 :00 times Medical daily for Branch 30 days. pantoprazol 2019-0 2020- No [id number] 40mg Take 1 Univers e 40 mg EC -05 17- tablet by ity of tablet 00:00: 04:59 mouth [place] 00 :00 daily for Medical 30 days. Branch lactulose 2019-0 2020- No [id number] 30mL Take 30 mL Univers 10 gram/15 08-10 by mouth 2 it y of mL oral 00:00: 04:59 (two) [place] solution 00 :00 times Medical daily for Branch 30 days. pantoprazol 2019-0 2020- No [id number] 40mg Take 1 Univers e 40 mg EC 08-10 tablet by ity of tablet 00:00: 04:59 mouth [place] 00 :00 daily for Medical 30 days. Branch propranolol 2019-0 2020- No [id number] 10mg Take 1 Univers 10 mg -05 [...] Medical 13 (two) Center times daily. ibuprofen 2018-0 2020- No 600mg Take 1 [...] e Sodium e Sodium Singh defined Spir [facility] Acetaminoph Acetaminoph Yes Gm not Common en-Codeine en-Codeine Singh defined [facility] #3 #3 [facility] Oseltamivir Oseltamivir Yes Gm not Common Phosphate Phosphate Singh defined Sp cleopatra [facility] Levofloxaci Levofloxaci Yes Gm not Common n n Singh defined [facility] Xifaxan Xifaxan Yes Gm not Common Singh defined [facility] Lactulose Lactulose Yes Gm not Co mmon Singh defined [facility] Albuterol Albuterol Yes Gm not Co mmon Sulfate HFA Sulfate HFA Singh defined [facility] Azithromyci Azithromyci Yes Gm not Common n n Singh defined [facility] Amoxicillin Amoxicillin Yes Gm not Common -Pot -Pot Singh defined Spirit Clavulanate Clavulanate - [facility] Immunizations Ordered Immunization Filled Immunization Date Status Commen ts Source Name Name FLUCELVAX QUAD PF 2021-12-18 Completed [...] QUAD PF 2021-02-[address] 00:00:00 [facility] Pneumococcal 2020-10-03 Completed University o f [...] ical PPSV23 (PNEUMOVAX) Branch Pneumococcal 2020-10-03 Completed [facility] Polysaccharide [facility]00 [facility] Pneumococcal 2020-10-03 Completed [facility] Polysaccharide 00:00:00 Hospital Pneumococcal 2020-10-03 Completed [facility] Polysaccharide 00:00:00 Hospital Pneumococcal 2020-10-03 Completed [facility] Polysaccharide 00:00:00 [facility] SARS-COV-2 COVID-19 2020-08-08 Completed Unive rsity of MODERNA VACCINE 00:00:00 [facility] SARS-COV-2 COVID-19 2020-08-08 Completed Unive rsity of MODERNA VACCINE 00:00:00 [facility] SARS-COV-2 COVID-19 2020-08-08 Completed Unive rsity of MODERNA VACCINE 00:00:00 [facility] SARS-COV-2 COVID-19 2020-08-08 Completed Unive rsity of MODERNA VACCINE 00:00:00 [facility] SARS-COV-2 COVID-19 2020-08-08 Completed Unive rsity of MODERNA VACCINE 00:00:00 [facility] SARS-COV-2 COVID-19 2020-08-08 Completed Unive rsity of [...] rsity of MODERNA 12+ YRS 00:00:00 [place] Med ical VACCINE Branch SARS-COV-2 COVID-19 2020-08-08 Completed Unive rsity of MODERNA 12+ YRS 00:00:00 [place] Med ical VACCINE Branch SARS-COV-2 COVID-19 2020-08-08 Completed Unive rsity of MODERNA 12+ YRS 00:00:00 [place] Med ical VACCINE Branch MODERNA COVID-19 MRNA 2020-08-08 Completed [facility] VACCINATION 00:00:00 Hospital MODERNA COVID-19 MRNA 2020-08-08 Completed [facility] VACCINATION 00:00:00 [facility] MODERNA COVID-19 MRNA 2020-08-08 Completed [facility] VACCINATION 00:00:00 Hospital MODERNA COVID-19 MRNA 2020-08-08 Completed [facility] VACCINATION 00:00:00 Hospital SARS-COV-2 COVID-19 2020-07-11 Completed Unive rsity of MODERNA VACCINE 00:00:00 [place] [facility] ical Branch SARS-COV-2 COVID-19 2020-07-11 Completed Unive rsity of MODERNA VACCINE 00:00:00 [place] Med ical Branch SARS-COV-2 COVID-19 2020-07-11 Completed Unive rsity of MODERNA VACCINE 00:00:00 [place] Med ical Branch SARS-COV-2 COVID-19 2020-07-11 Completed Unive rsity of MODERNA VACCINE 00:00:00 [place] [facility] ical Branch SARS-COV-2 COVID-19 2020-07-11 Completed Unive rsity of MODERNA VACCINE 00:00:00 [place] [facility] ical Branch SARS-COV-2 COVID-19 2020-07-11 Completed Unive rsity of MODERNA VACCINE 00:00:00 [facility] ical Branch SARS-COV-2 COVID-19 2020-07-11 Completed Unive rsity of MODERNA VACCINE 00:00:00 [facility] ical Branch SARS-COV-2 COVID-19 2020-07-11 Completed Unive rsity of MODERNA VACCINE 00:00:00 [facility] ical Branch SARS-COV-2 COVID-19 2020-07-11 Completed Unive rsity of MODERNA VACCINE 00:00:00 [facility] ical Branch SARS-COV-2 COVID-19 2020-07-11 Completed Unive rsity of MODERNA VACCINE 00:00:00 [facility] ical Branch SARS-COV-2 COVID-19 2020-07-11 Completed Unive rsity of MODERNA 12+ YRS 00:00:00 [facility] ical VACCINE Branch SARS-COV-2 COVID-19 2020-07-11 Completed Unive rsity of MODERNA 12+ YRS 00:00:00 [facility] ical VACCINE Branch SARS-COV-2 COVID-19 2020-07-11 Completed Unive rsity of MODERNA 12+ YRS 00:00:00 [facility] ical VACCINE Branch MODERNA COVID-19 MRNA 2020-07-11 Completed [facility] VACCINATION 00:00:00 Hospital MODERNA COVID-19 MRNA 2020-07-11 Completed [facility] VACCINATION 00:00:00 Hospital MODERNA COVID-19 MRNA 2020-07-11 Completed [facility] VACCINATION 00:00:00 Hospital MODERNA COVID-19 MRNA 2020-07-11 Completed [facility] VACCINATION 00:00:00 Hospital Influenza Virus 2019-08-11 Completed Universit y [...] MO Branch FLUZONE QUAD PF 2019-08-11 Completed [facility] 00:[facility]:00 [facility] FLUZONE QUAD PF 2019-08-11 Completed [facility] 00:00:00 Hospital FLUZONE QUAD PF 2019-08-11 Completed [facility] 00:00:00 Hospital FLUZONE QUAD PF 2019-08-11 Completed [facility] 00:00:00 Hospital Influenza (IM) 2018-05-29 Completed [facility] 2018-05-29 Completed [facility] Preservative Free 00:00:00 [facility]osp[facility] l Influenza (IM) 2018-05-29 Completed [facility] Preservative Free 00:00:00 [facility]ospita l Influenza (IM) 2018-05-29 Completed [facility] Preservative Free 00:00:00 Hospita l Influenza (IM) 2017-01-21 Completed [facility] Preservative Free 00:00:00 Hospita l Influenza (IM) 2017-01-21 Completed [facility] Preservative Free 00:00:00 [facility]ospita l Influenza (IM) 2017-01-21 Completed [facility] Preservative Free 00:00:00 Hospita l Influenza (IM) 2017-01-21 Completed [facility] Preservative Free 00:00:00 Hospita l Influenza (IM) 2016-02-28 Completed [facility] Preservative Free 00:00:00 Hospita l Influenza (IM) 2016-02-28 Completed [facility] Preservative Free 00:00:00 Hospita l Influenza (IM) 2016-02-28 Completed [facility] Preservative Free 00:00:00 Hospita l Influenza (IM) 2016-02-28 Completed [facility] Preservative Free 00:00:00 Hospita l Vital Signs Vital Name Observation Time Observation Value Comments Source Systolic blood 2022-04-16 04:00:00 152 mm[Hg] Univer sity pressure [facility] Diastolic blood 2022-04-16 04:00:00 83 mm[Hg] Unive [facility] Heart rate 2022-04-16 04:00:00 86 /min [facility] Respiratory rate 2022-04-16 04:00:00 18 /min [facility] Oxygen saturation in 2022-04-16 04:00:00 97 /min [facility] Arterial blood by [facility] Pulse oximetry Branch Body temperature 2022-04-16 02:17:00 37 Sandee [facility] Body height 2022-04-16 02:17:00 162.6 cm [facility] Body weight 2022-04-16 02:17:00 120.203 kg [facility] BMI 2022-04-16 02:17:00 45.49 kg/m2 [facility] Systolic blood 2022-04-10 03:00:00 113 mm[Hg] Univer sity of pressure [place] [facility] Diastolic blood 2022-04-10 03:00:00 71 mm[Hg] Unive rsity of pressure [place] [facility] Heart rate 2022-04-10 03:00:00 84 /min [facility] [place] [facility] Respiratory rate 2022-04-10 03:00:00 17 /min Univ ersity of [place] [facility] Oxygen saturation in 2022-04-10 03:00:00 98 /min University of Arterial blood by [place] [employer] molly Pulse oximetry Branch Body temperature 2022-04-10 01:36:00 37.11 Sandee Univ ersity of [place] [facility] Body height 2022-04-10 01:36:00 162.6 cm [facility] [place] [facility] Body weight 2022-04-10 01:36:00 120.249 kg [facility] [place] [facility] BMI 2022-04-10 01:36:00 45.50 kg/m2 [facility] [place] [facility] Systolic blood 2022-02-15 21:55:49 128 mm[Hg] Univer sity of pressure [place] [facility] Diastolic blood 2022-02-15 21:55:49 79 mm[Hg] Unive rsity of pressure [place] [facility] Heart rate 2022-02-15 21:55:49 75 /min [facility] [place] [facility] Respiratory rate 2022-02-15 21:55:49 19 /min Univ ersity of [place] [facility] Oxygen saturation in 2022-02-15 21:55:49 99 /min University of Arterial blood by [place] [employer] molly Pulse oximetry Branch Body temperature 2022-02-15 19:43:00 35.89 Sandee Univ ers[facility] [place] [facility] Body height 2022-02-15 19:43:00 162.6 cm [facility] [place] [facility] Body weight 2022-02-15 19:43:00 113.399 kg [facility] [place] [facility] BMI 2022-02-15 19:43:00 42.91 kg/m2 [facility] [place] [facility] Systolic blood 2021-09-29 03:00:00 126 mm[Hg] Univer sity of pressure [place] [facility] Diastolic blood 2021-09-29 03:00:00 57 mm[Hg] Unive rsity of pressure [place] [facility] Heart rate 2021-09-29 03:00:00 78 /min [facility] [place] [facility] Body temperature 2021-09-29 03:00:00 37.28 Sandee Univ ersity of [place] [facility] Respiratory rate 2021-09-29 03:00:00 16 /min Univ ersity of [place] [facility] Body height 2021-09-29 03:00:00 162.6 cm [facility] [place] [facility] Body weight 2021-09-29 03:00:00 117.935 kg [facility] [place] [facility] BMI 2021-09-29 03:00:00 44.63 kg/m2 [facility] [place] [facility] Oxygen saturation in 2021-09-29 03:00:00 97 /min University of Arterial blood by [place] [employer] molly Pulse oximetry Branch Systolic blood 2021-04-02 18:55:00 138 mm[Hg] Univer sity of pressure [place] [facility] Diastolic blood 2021-04-02 18:55:00 104 mm[Hg] Unive rsity of pressure [place] [facility] Heart rate 2021-04-02 18:55:00 74 /min [facility] [place] [facility] Body temperature 2021-04-02 18:55:00 36.78 Sandee Univ ers[facility] [place] [facility] Respiratory rate 2021-04-02 18:55:00 18 /min Univ ersity of [place] [facility] Body weight 2021-04-02 18:55:00 122.471 kg [facility] [place] [facility] BMI 2021-04-02 18:55:00 46.35 kg/m2 [facility] [place] [facility] Oxygen saturation in 2021-04-02 18:55:00 97 /min University of Arterial blood by [facility] [place] [facility] molly Pulse oximetry Branch Systolic blood 2020-10-03 17:23:00 132 mm[Hg] Univer sity of pressure [place] [facility] Diastolic blood 2020-10-03 17:23:00 56 mm[Hg] Unive rsity of pressure [place] [facility] Heart rate 2020-10-03 17:23:00 88 /min [facility] [place] [facility] Body temperature 2020-10-03 17:23:00 36.94 Sandee Univ ersity [facility] [place] [facility] Respiratory rate 2020-10-03 17:23:00 18 /min Univ ersity of [place] [facility] Oxygen saturation in 2020-10-03 17:23:00 94 /min University of Arterial blood by [facility] Pulse oximetry Branch Body weight 2020-09-30 08:11:00 121.473 kg [facility] [place] [facility] BMI 2020-09-30 08:11:00 47.44 kg/m2 [facility] [place] [facility] Body height 2020-09-29 03:33:00 160 cm [facility] [place] [facility] Diastolic blood 2019-08-11 20:04:00 44 mm[Hg] Unive rsity of pressure [place] [facility] [place] Heart rate 2019-08-11 20:04:00 70 /min [facility] [place] [facility] Body temperature 2019-08-11 20:04:00 36.61 Sandee Univ ersity of [facility] Branch Respiratory rate 2019-08-11 20:04:00 18 /min Univ ersity of [place] [facility] Oxygen saturation in 2019-08-11 20:04:00 91 /min University of Arterial blood by [facility] Pulse oximetry Branch Systolic blood 2019-08-11 20:04:00 107 mm[Hg] Univer sity of pressure [facility] Body height 2019-08-10 08:01:00 162.6 cm [facility] [place] [facility] Body weight 2019-08-10 08:01:00 119.296 kg [facility] [place] [facility] BMI 2019-08-10 08:01:00 45.14 kg/m2 [facility] [place] [facility] Diastolic blood 2019-08-11 20:04:00 44 mm[Hg] Unive rsity of pressure [facility] Heart rate 2019-08-11 20:04:00 70 /min [facility] [place] [facility] Body temperature 2019-08-11 20:04:00 36.61 Sandee Univ ersity [facility] [place] [facility] Respiratory rate 2019-08-11 20:04:00 18 /min Univ ersity of [place] [facility] Oxygen saturation in 2019-08-11 20:04:00 91 /min University of Arterial blood by [facility] Pulse oximetry Branch Systolic blood 2019-08-11 20:04:00 107 mm[Hg] Univer sity of pressure [facility] Body height 2019-08-10 08:01:00 162.6 cm Universi [facility] Body weight 2019-08-10 08:01:00 119.296 kg [facility] BMI 2019-08-10 08:01:00 45.14 kg/m2 [facility] Systolic blood 2022-02-27 23:42:53 122 mm[Hg] [facility] pressure Diastolic blood 2022-02-27 23:42:53 53 mm[Hg] [facility] pressure Heart rate 2022-02-27 23:42:53 73 /min [facility] Body temperature 2022-02-27 23:42:53 37.06 [facility] Respiratory rate 2022-02-27 23:42:53 18 /min [facility] Oxygen saturation in 2022-02-27 23:42:53 98 /min [facility] Arterial blood by Pulse oximetry Body weight 2022-02-26 03:00:22 118.162 kg [facility] 2022-02-26 03:00:22 44.71 kg/m2 [facility] Body height 2022-02-26 02:56:00 162.6 cm [facility] Systolic blood 2022-01-06 21:13:50 124 mm[Hg] [facility] pressure Diastolic blood 2022-01-06 21:13:50 58 mm[Hg[facility] Heart rate 2022-01-06 21:13:50 69 /min [facility] Body temperature 2022-01-06 21:13:50 35.89 [facility] Respiratory rate 2022-01-06 21:13:50 18 /min [facility] Oxygen saturation in 2022-01-06 21:13:50 95 /min [facility] Arterial blood by Pulse oximetry Body weight 2022-01-06 10:25:28 109.952 kg [facility] BMI 2022-01-06 10:25:28 41.61 kg/m2 [facility] Body height 2022-01-02 04:15:00 162.6 cm [facility] Systolic blood 2021-12-18 20:25:00 122 mm[Hg] [facility] pressure Diastolic blood 2021-12-18 20:25:00 57 mm[Hg] [facility] Heart rate 2021-12-18 20:25:00 71 /min [facility] Body temperature 2021-12-18 20:25:00 36.94 [facility] Respiratory rate 2021-12-18 20:25:00 19 /min [facility] Oxygen saturation in 2021-12-18 20:25:00 94 /min [facility] Arterial blood by Pulse oximetry Body weight 2021-12-18 10:58:00 112.1 kg [facility] BMI 2021-12-18 10:58:00 42.42 kg/m2 [facility] Systolic blood 2021-12-03 12:21:16 129 mm[Hg] [facility] pressure Diastolic blood 2021-12-03 12:21:16 58 mm[Hg] [facility] pressure Heart rate 2021-12-03 12:21:16 68 /min [facility] Body temperature 2021-12-03 12:21:16 36.11 [facility] Respiratory rate 2021-12-03 12:21:16 20 /min [facility] Oxygen saturation in 2021-12-03 12:21:16 95 /min [facility] Arterial blood by Pulse oximetry Body weight 2021-12-03 11:09:00 112.6 kg [facility] BMI 2021-12-03 11:09:00 42.61 kg/m2 [facility] Body height 2021-10-21 16:02:36 162.6 cm [facility] Procedures Procedure Date / Time Performing Source Performed Clinician EKG-12 LEAD 2022-04-16 Estephania Flood [facility] 04:17:16 [facility] XR CHEST 2 VW 2022-04-16 Aleena [facility] 03:21:40 [facility] TROPONIN I 2022-04-16 Aleena [facility] of 02:46:00 [facility] HEPATIC FUNCTION PANEL (95992) 2022-04-16 Estephania Flood niversity of (ALB,T.PRO,BILI 02:46:00 [facility],BU/BC,ALT,AST,ALK PHOS) Branch BASIC METABOLIC PANEL (NA, K, CL, 2022-04-16 Estephania Flood of CO2, GLUCOSE, BUN, CREATININE, CA) 02:46:00 [facility] CBC WITH DIFF 2022-04-16 Aleena [facility] 02:46:00 [facility] URINALYSIS 2022-04-16 Aleena [facility] of 02:46:00 [facility] RAPID STREP SCREEN FOR GROUP A 2022-04-16 Estephania Flood U niversity of 02:46:00 [facility] RAPID INFLUENZA A/B 2022[facility]04-[facility] 02:[facility]00 [facility] N-TERMINAL PRO-BNP 2022-04-16 [facility] of 02:46:00 [facility] COVID-19 (ID NOW RAPID TESTING) 2022-04-16 [facility] of 02:46:00 [facility] NOTICE OF PRIVACY PRACTICES 2022-04-16 Doctor Unasslis, U niversity of 02:08:07 [place] [facility] CONSENT/REFUSAL FOR DIAGNOSIS AND 2022-04-16 Doctor Buck olmedo, [facility] 02:07:40 [place] [facility] CREATINE KINASE 2022-04-10 Emily Salgado [facility] 02:05:00 [facility] MAGNESIUM 2022-04-10 Emily Salgado [facility] 02:05:00 [facility] AMMONIA, PLASMA 2022-04-10 Emily Salgado [facility] 02:05:00 [facility] COMP. METABOLIC PANEL ([id number]) 2022-04-10 Emily Salgado [facility]iversity of 02:05:00 [facility] CBC WITH DIFF 2022-04-10 Emily Salgado [facility] 02:05:00 [facility] PROTHROMBIN TIME / INR 2022-04-10 Emily Salgado Universi ty of 02:05:00 [facility] URINALYSIS 2022-04-10 Emily Salgado [facility] 02:05:00 [facility] CONSENT/REFUSAL FOR DIAGNOSIS AND 2022-04-10 [facility] 01:08[facility]41 [place] [facility] XR SHOULDER 2+ VW LEFT 2022-02-27 Viviana Ward 15:01:00 [facility] CBC WITH PLATELET AND DIFFERENTIAL 2022-02-27 Leah Sandovalist 10:39:00 [facility] PROTHROMBIN TIME WITH INR 2022-02-27 Jeremy Sandoval ist 10:39:00 [facility] BASIC METABOLIC PANEL 2022-02-27 Jeremy Sandovalist 10:39:00 [facility] HEPATIC FUNCTION PANEL 2022-02-27 DinakarJeremy Church 10:39:00 [facility] PHOSPHORUS LEVEL 2022-02-27 DinakarJeremy Church 10:39:00 [facility] MAGNESIUM LEVEL 2022-02-27 DinakarJeremy Church 10:39:00 [facility] ESTIMATED GFR 2022-02-27 MichelakarJeremy Church 10:39:00 [facility] SMEAR REVIEW 2022-02-27 DinakarJeremy Church 10:39:00 [facility] POC GLUCOSE 2022-02-27 MichelakarJeremy Church 09:38:00 [facility] CBC WITH PLATELET AND DIFFERENTIAL 2022-02-26 MichelakaLeah potts Church 11:53:00 [facility] PROTHROMBIN TIME WITH INR 2022-02-26 MichelakaJeremy potts Method ist 11:53:00 [facility] BASIC METABOLIC PANEL 2022-02-26 DinakarJeremy Church 11:53:00 [facility] HEPATIC FUNCTION PANEL 2022-02-26 Dinakar, Jeremy Church 11:53:00 [facility] PHOSPHORUS LEVEL 2022-02-26 DinakarJeremy Church 11:53:00 [facility] MAGNESIUM LEVEL 2022-02-26 DinakarJeremy Church 11:53:00 [facility] HEMOGLOBIN A1C 2022-02-26 MichelakarJeremy Church 11:53:00 [facility] ESTIMATED GFR 2022-02-26 Dinakar, Jeremy Church 11:53:00 [facility] SMEAR REVIEW 2022-02-26 DinakarJeremy Church 11:53:00 [facility] AMYLASE LEVEL 2022-02-26 Dinakar, Jeremy Church 11:53:00 [facility] GASTROINTESTINAL PANEL 2022-02-26 Myra Garcia ist 03:50:00 [facility] BLOOD CULTURE, AEROBIC & ANAEROBIC 2022-02-25 Laci Garcia Church 23:25:00 [facility] COVID-19 QUALITATIVE RT-PCR 2022-02-25 Stevo Hoskins odnohelia 23:24:00 [facility] BLOOD CULTURE, AEROBIC & ANAEROBIC 2022-02-25 Laci Garcia Church 23:10:00 [facility] US ABDOMINAL LIMITED 2022-02-25 Myra Garcia 21:58:[address] [facility] [address] ABDOMEN PELVIS W CONTRAST 2022-02-25 Rehrer, Steov ramosist 21:28:38 [facility] ECG ED PRELIMINARY INTERPRETATION 2022-02-25 Rehrer, Stevo Church 20:37:40 [facility] PROTHROMBIN TIME WITH INR 2022-02-25 Rehrer, Stevo Method ist 20:18:00 [facility] PARTIAL THROMBOPLASTIN TIME (PTT) 2022-02-25 Rehrer, Stevo Church 20:18:00 [facility] CBC WITH PLATELET AND DIFFERENTIAL 2022-02-25 Rehrer, Stevo Church 19:55:00 [facility] COMPREHENSIVE METABOLIC PANEL 2022-02-25 Rehrer, Stevo Queen thodist 19:55:00 [facility] LIPASE LEVEL 2022-02-25 Rehrer, Stevo Church 19:55:00 [facility] ESTIMATED GFR 2022-02-25 Rehrer, Stevo Church 19:55:00 [facility] ECG 12-LEAD 2022-02-25 Rehrer, Stevo Church 18:42:27 [facility] RAPID INFLUENZA A/B 2022-02-15 Florian Ayers o f 21:31:00 [facility] COVID-19 (ID NOW RAPID TESTING) 2022-02-15 Florian Ayers of 21:31:00 [facility] URINALYSIS 2022-02-15 Florian Ayers of 21:04:00 [facility] CT ABDOMEN PELVIS W CONTRAST 2022-02-15 Florian Ayers Uni versity of 20:35:57 [facility] LIPASE 2022-02-15 Singer Florian Peggy of 20:15:00 [facility] COMP. METABOLIC PANEL ([id number]) 2022-02-15 Florian Ayers iversity of 20:15:00 [facility] CBC WITH DIFF 2022-02-15 Florian Ayers of 20:15:00 [facility] CONSENT/REFUSAL FOR DIAGNOSIS AND 2022-02-15 Doctor Buck olmedo [facility] 19:31:00 [place] [facility] PROTHROMBIN TIME WITH INR 2022-02-04 Carolin Sanches Method ist 11:20:00 Hospital PHOSPHORUS LEVEL 2022-02-04 Carolin Sanches Church 11:20:00 Hospital MAGNESIUM LEVEL 2022-02-04 Carolin Sanches [facility] 11:20:00 Hospital BASIC METABOLIC PANEL 2022-02-04 Carolin Sanches Church 11:20:00 Hospital HEPATIC FUNCTION PANEL 2022-02-04 Carolin Sanches Church 11:20:00 Hospital CBC HEMOGRAM 2022-02-04 Carolin Sanches [facility] 11:20:00 Hospital ESTIMATED GFR 2022-02-04 Carolin Sanches Church 11:20:00 Hospital SMEAR REVIEW 2022-02-04 Carolin Sanches Church 11:20:00 [facility] UPPER GI TRACT, ENDOSCOPIC 2022-02-03 Carolin Sanches [place] thodist 19:36:00 Hospital PROTHROMBIN TIME WITH INR 2022-02-03 Carolin Sanches Method ist 09:29:00 Hospital PHOSPHORUS LEVEL 2022-02-03 Carolin Sanches Church 09:29:00 Hospital MAGNESIUM LEVEL 2022-02-03 Carolin Sanches Church 09:29:00 Hospital BASIC METABOLIC PANEL 2022-02-03 Carolin Sanches Church 09:29:00 Hospital HEPATIC FUNCTION PANEL 2022-02-03 Carolin Sanches [facility] 09:29:00 Hospital CBC HEMOGRAM 2022-02-03 Carolin Sanches [facility] 09:29:00 Hospital ESTIMATED GFR 2022-02-03 Nakia Cruz Church 09:29:00 Hospital SMEAR REVIEW 2022-02-03 Nakia Cruz Church 09:29:00 Hospital PROTHROMBIN TIME WITH INR 2022-02-02 Carolin Sanches Method ist 09:08:00 Hospital PHOSPHORUS LEVEL 2022-02-02 Carolin Sanches Church 09:08:00 Hospital MAGNESIUM LEVEL 2022-02-02 Carolin Sanches [facility] 09:08:00 Hospital BASIC METABOLIC PANEL 2022-02-02 Carolin Sanches Church 09:08:00 Hospital HEPATIC FUNCTION PANEL 2022-02-02 Carolin Sanches [facility] 09:08:00 Hospital CBC HEMOGRAM 2022-02-02 Carolin Sanches Church 09:08:00 Hospital ESTIMATED GFR 2022-02-02 Nakia Cruz Church 09:08:00 Hospital SMEAR REVIEW 2022-02-02 Nakia Cruz 09:08:00 Hospital XR ABDOMEN 1 VW PORTABLE 2022-02-01 Myra Garcia odist 22:39:25 [facility]19 ANTI-SPIKE IGG ANTIBODY 2022-02-01 Deepak Ward TITER 11:37:00 Hospital CBC WITH PLATELET AND DIFFERENTIAL 2022-02-01 Deepak Wardist 11:37:00 Hospital PROTHROMBIN TIME WITH INR 2022-02-01 Carolin Sanches Method ist 11:37:00 Hospital COMPREHENSIVE METABOLIC PANEL 2022-02-01 Bebeto Ward ethodist 11:37:00 Hospital PHOSPHORUS LEVEL 2022-02-01 Carolin Sanches Church 11:37:00 Hospital MAGNESIUM LEVEL 2022-02-01 Carolin Sanchesist 11:37:00 [facility] THYROID STIMULATING HORMONE 2022-02-01 Bebeto Ward Met hodist 11:37:00 Hospital T4 2022-02-01 Bebeto Ward 11:37:00 Hospital VITAMIN D 25 HYDROXY LEVEL 2022-02-01 Bebeto Ward [facility] 2022-02-01 Bebeto Ward hodist SURVEILLANCE 11:37:00 Hospital ESTIMATED GFR 2022-02-01 Bebeto Ward 11:37:00 Hospital SMEAR REVIEW 2022-02-01 Bebeto Ward 11:37:00 [facility] COVID-19 QUALITATIVE RT-PCR 2022-02-01 June Clark hodist 03:59:00 [facility] LACTIC ACID LEVEL, SEPSIS - NOW 2022-02-01 Bebeto Ward AND REPEAT 2X EVERY 3 HOURS 03:45:[address] ABDOMEN PELVIS W CONTRAST 2022-02-01 June Clark thodist 02:53:55 [facility] BLOOD CULTURE, AEROBIC & ANAEROBIC 2022-02-01 Johnna Clark Church 02:09:00 [facility] URINE CULTURE 2022-02-01 June Clarkist 01:50:00 [facility] URINALYSIS SCREEN AND MICROSCOPY, 2022-02-01 Cristopher Clarkist WITH REFLEX TO CULTURE 01:50:00 [facility] COMPREHENSIVE METABOLIC PANEL 2022-02-01 Rolando Olivier 01:47:00 Hospital LIPASE LEVEL 2022-02-01 Rolando Olivier 01:47:00 Hospital ESTIMATED GFR 2022-02-01 Rolando Olivier 01:47:00 Hospital LACTIC ACID LEVEL, SEPSIS - NOW 2022-02-01 Bebeto Ward AND REPEAT 2X EVERY 3 HOURS 01:47:00 Hosp ital PROTHROMBIN TIME WITH INR 2022-02-01 June Clark Metho dist 01:47:00 [facility] PARTIAL THROMBOPLASTIN TIME (PTT) 2022-02-01 Cristopher Clark 01:47:00 [facility] AMMONIA LEVEL 2022-02-01 June Clark 01:47:00 [facility] BLOOD CULTURE, AEROBIC & ANAEROBIC 2022-02-01 Johnna Clark Church 01:45:00 [facility] ECG ED PRELIMINARY INTERPRETATION 2022-02-01 Cristopher Clark 01:18:19 [facility] URINE CULTURE 2022-02-01 Rolando Olivier 01:17:00 Hospital CBC WITH PLATELET AND DIFFERENTIAL 2022-02-01 Rolando Olivier 01:17:00 Hospital URINALYSIS SCREEN AND MICROSCOPY, 2022-02-01 Rolando Olivier WITH REFLEX TO CULTURE 01:17:00 Hospital SMEAR REVIEW 2022-02-01 Rolando Olivier 01:17:00 Hospital ECG 12-LEAD 2022-01-31 Bakshy, Rolando Pettit Church 23:14:20 Hospital POC GLUCOSE 2022-01-06 Jeremy Sandovalist 17:53:00 [facility] CBC WITH PLATELET AND DIFFERENTIAL 2022-01-06 Nakia Cruz 09:49:00 Hospital PROTHROMBIN TIME WITH INR 2022-01-06 Nakia Cruz Method ist 09:49:00 Hospital COMPREHENSIVE METABOLIC PANEL 2022-01-06 Jeremy Sandoval Me thodist 09:49:00 [facility] ESTIMATED GFR 2022-01-06 Jeremy Sandoval 09:49:00 [facility] SMEAR REVIEW 2022-01-06 Nakia Cruzist 09:49:00 Hospital SURGICAL PATHOLOGY REQUEST 2022-01-05 Jeremy Sandoval Metho dist 21:05:00 [facility] ESOPHAGOGASTRODUODENOSCOPY (EGD) 2022-01-05 Elias Guzman 20:55:00 Hospital CBC WITH PLATELET AND DIFFERENTIAL 2022-01-05 Nakia Cruz 09:38:00 Hospital PROTHROMBIN TIME WITH INR 2022-01-05 Nakia Cruz Method ist 09:38:00 Hospital COMPREHENSIVE METABOLIC PANEL 2022-01-05 Nakia Cruz thodist 09:38:00 Hospital PHOSPHORUS LEVEL 2022-01-05 Nakia Cruzist 09:38:00 Hospital MAGNESIUM LEVEL 2022-01-05 Nakia Cruzist 09:38:00 Hospital ESTIMATED GFR 2022-01-05 Nakia Cruz 09:38:00 Hospital SMEAR REVIEW 2022-01-05 Nakia Cruz 09:38:00 Hospital XR ABDOMEN 1 VW PORTABLE 2022-01-[address] 16:05:00 [facility] CBC WITH PLATELET AND DIFFERENTIAL 2022-01-04 Nakia Cruz 09:33:00 Hospital PROTHROMBIN TIME WITH INR 2022-01-04 Nakia Cruz Method ist 09:33:00 Hospital COMPREHENSIVE METABOLIC PANEL 2022-01-04 Nakia Cruz thodist 09:33:00 Hospital PHOSPHORUS LEVEL 2022-01-04 Nakia Cruzist 09:33:00 Hospital MAGNESIUM LEVEL 2022-01-04 Nakia Cruzist 09:33:00 Hospital ESTIMATED GFR 2022-01-04 Nakia Cruz 09:33:00 Hospital SMEAR REVIEW 2022-01-04 Nakia Cruzist 09:33:00 Hospital XR ABDOMEN 1 VW PORTABLE 2022-01-[address] 16:09:48 [place] [address] ANTI-SPIKE IGG ANTIBODY 2022-01-03 Jaime Leah stuart Church TITER 09:01:00 [facility] CBC WITH PLATELET AND DIFFERENTIAL 2022-01-03 [...] HYDROXY LEVEL 2022-01-03 Nakia Cruzo dist 09:01:00 [place] [address] SEROLOGY PATIENT 2022-01-03 Jaime Jeremy Tanner odnohelia SURVEILLANCE 09:01:00 [facility] AMYLASE LEVEL 2022-01-03 Cassandra Johnson 09:01:00 [facility] ESTIMATED GFR 2022-01-03 Nakia Cruz 09:01:00 Hospital SMEAR REVIEW 2022-01-03 Nakia Cruz 09:01:00 Hospital LIPASE LEVEL 2022-01-03 Nakia Cruz 09:01:00 Hospital XR ABDOMEN 1 VW PORTABLE 2022-01-02 Cassandra Johnson 15:46:00 [facility] URINALYSIS SCREEN AND MICROSCOPY, 2022-01-02 Vandana Bernsteinist WITH REFLEX TO CULTURE 10:37:00 [facility] HCG QUALITATIVE, URINE SCREEN 2022-01-02 Vandana Bernstein Me thodist 10:37:00 [facility] URINE CULTURE 2022-01-02 Amandeep Vandana Church 10:34:00 [facility] COVID-19 QUALITATIVE RT-PCR 2022-01-02 Vandana Bernstein Meth odist 10:26:[address] [facility] [address] ABDOMEN PELVIS W CONTRAST 2022-01-02 Vandana Bernstein Met hodist 08:56:21 [facility] CBC WITH PLATELET AND DIFFERENTIAL 2022-01-02 Amandeep Vandana Church 05:47:00 [facility] COMPREHENSIVE METABOLIC PANEL 2022-01-02 Jovan Bernsteinali Me thodist 05:47:00 [facility] LIPASE LEVEL 2022-01-02 BernsteinVandana Church 05:47:00 [facility] PROTHROMBIN TIME WITH INR 2022-01-02 Vandana Bernstein Method ist 05:47:00 [facility] PARTIAL THROMBOPLASTIN TIME (PTT) 2022-01-02 BernsteinVandana Church 05:47:00 [facility] ESTIMATED GFR 2022-01-02 AmandeepVandana Church 05:47:00 [facility] SMEAR REVIEW 2022-01-02 BernsteinVandana Church 05:47:00 [facility] CBC WITH PLATELET AND DIFFERENTIAL 2021-12-18 Leah Sandoval Church 10:19:00 [facility] PROTHROMBIN TIME WITH INR 2021-12-18 Jeremy Sandoval Method ist 10:19:00 [facility] BASIC METABOLIC PANEL 2021-12-18 Jeremy Sandoval Church 10:19:00 [facility] HEPATIC FUNCTION PANEL 2021-12-18 Jeremy Sandoval Church 10:19:00 [facility] PHOSPHORUS LEVEL 2021-12-18 Jeremy Sandoval Church 10:19:00 [facility] MAGNESIUM LEVEL 2021-12-18 Jeremy Sandoval Church 10:19:00 [facility] ESTIMATED GFR 2021-12-18 Jeremy Sandoval Church 10:19:00 [facility] SMEAR REVIEW 2021-12-18 Jeremy Sandoval Church 10:19:00 [facility] CBC WITH PLATELET AND DIFFERENTIAL 2021-12-17 Dinakar, Leah stuart Church 11:45:00 [facility] PROTHROMBIN TIME WITH INR 2021-12-17 Dinakar, Jeremy Method ist 11:45:00 [facility] BASIC METABOLIC PANEL 2021-12-17 Dinakar, Jeremy Church 11:45:00 [facility] HEPATIC FUNCTION PANEL 2021-12-17 Dinakar, Jeremy Church 11:45:00 [facility] PHOSPHORUS LEVEL 2021-12-17 Dinakar, Jeremy Church 11:45:00 [facility] MAGNESIUM LEVEL 2021-12-17 Dinakar, Jeremy Church 11:45:00 [facility] ESTIMATED GFR 2021-12-17 Michelakar, Jeremy Kyle 11:45:00 [facility] SMEAR REVIEW 2021-12-17 MichelakaJeremy potts Church 11:45:00 [facility] NM GI BLEEDING STUDY 2021-12-16 Elias Guzman 20:06:11 Hospital MRI CHOLANGIOGRAM WO CONTRAST 2021-12-16 Eilas Guzman thodist 13:57:00 Hospital MRI ABDOMEN W WO CONTRAST 2021-12-16 Elias Guzman Method ist 13:56:00 [facility] CBC WITH PLATELET AND DIFFERENTIAL 2021-12-16 Dinakar, Leah stuart Church 11:26:00 [facility] PROTHROMBIN TIME WITH INR 2021-12-16 Dinakar, Jeremy Method ist 11:26:00 [facility] BASIC METABOLIC PANEL 2021-12-16 DinakarJeremy Church 11:26:00 [facility] HEPATIC FUNCTION PANEL 2021-12-16 Dinakar, Jeremy Church 11:26:00 [facility] PHOSPHORUS LEVEL 2021-12-16 DinakarJeremy Church 11:26:00 [facility] MAGNESIUM LEVEL 2021-12-16 DinhomarJeremy Church 11:26:00 [facility] ESTIMATED GFR 2021-12-16 Michelakasami, Jeremy Church 11:26:00 [facility] SMEAR REVIEW 2021-12-16 Jeremy Sandoval Church 11:26:00 [facility] BASIC METABOLIC PANEL 2021-12-15 Bebeto Ward Church 12:30:00 Hospital ESTIMATED GFR 2021-12-15 Bebeto Ward Church 12:30:00 Hospital HEPATIC FUNCTION PANEL 2021-12-15 Bebeto Wardis t 12:30:00 Hospital MAGNESIUM LEVEL 2021-12-15 Bebeto Ward Church 12:30:00 Hospital PHOSPHORUS LEVEL 2021-12-15 Bebeto Ward Church 12:30:00 Hospital CBC HEMOGRAM 2021-12-15 Bebeto Ward Church 12:30:00 Hospital PROTHROMBIN TIME WITH INR 2021-12-15 Bebeto Ward Metho dist 12:30:00 Hospital C-REACTIVE PROTEIN 2021-12-15 Bebeto Ward Church 12:30:00 Hospital SMEAR REVIEW 2021-12-15 Bebeto Ward Church 12:30:00 [facility] CBC WITH PLATELET AND DIFFERENTIAL 2021-12-15 DinakarLeah Church 11:14:00 [facility] PROTHROMBIN TIME WITH INR 2021-12-15 Michelakar, Jeremy Method ist 11:14:00 [facility] BASIC METABOLIC PANEL 2021-12-15 DinakarJeremy Church 11:14:00 [facility] HEPATIC FUNCTION PANEL 2021-12-15 MichelakarJeremy Church 11:14:00 [facility] PHOSPHORUS LEVEL 2021-12-15 Dinakar, Jeremy Church 11:14:00 [facility] MAGNESIUM LEVEL 2021-12-15 DinakarJeremy Church 11:14:00 [facility] C-REACTIVE PROTEIN 2021-12-15 Bebeto Ward Church 11:14:00 Hospital ESTIMATED GFR 2021-12-15 Dinakar, Jeremy Church 11:14:00 [facility] CBC WITH PLATELET AND DIFFERENTIAL 2021-12-14 Dinakar, Leah stuart Church 10:39:00 [facility] PROTHROMBIN TIME WITH INR 2021-12-14 Dinakar, Jeremy Method ist 10:39:00 [facility] BASIC METABOLIC PANEL 2021-12-14 Dinakar, Jeremy Church 10:39:00 [facility] HEPATIC FUNCTION PANEL 2021-12-14 Dinakar, Jeremy Church 10:39:00 [facility] PHOSPHORUS LEVEL 2021-12-14 Dinakar, Jeremy Church 10:39:00 [facility] MAGNESIUM LEVEL 2021-12-14 Dinakar, Jeremy Church 10:39:00 [facility] C-REACTIVE PROTEIN 2021-12-14 Ward, Bebeto Church 10:39:00 Hospital FERRITIN LEVEL 2021-12-14 Ward, Bebeto Church 10:39:00 Hospital FOLATE LEVEL 2021-12-14 Ward, Bebeto Church 10:39:00 Hospital HAPTOGLOBIN 2021-12-14 Ward, Bebeto Church 10:39:00 Hospital VITAMIN B12 LEVEL 2021-12-14 Ward, Bebeto Church 10:39:00 Hospital TOTAL IRON BINDING CAPACITY 2021-12-14 WardBebeto graves Met hodnohelia 10:39:00 Hospital RETICULOCYTE COUNT 2021-12-14 WardBebeto graves Church 10:39:00 Hospital LDH 2021-12-14 WardBebeto graves Church 10:39:00 Hospital ESTIMATED GFR 2021-12-14 Dinar, Jeremy Church 10:39:00 [facility] VENIPUNC NEED PHYS SKILL,DX OR RX 2021-12-13 Latanya Ring Church 21:45:17 Hospital CBC WITH PLATELET AND DIFFERENTIAL 2021-12-13 MichelakaLeah potts Church 07:40:00 [facility] PROTHROMBIN TIME WITH INR 2021-12-13 Jeremy Sandoval Method ist 07:40:00 [facility] BASIC METABOLIC PANEL 2021-12-13 DinarJeremy Church 07:40:00 [facility] HEPATIC FUNCTION PANEL 2021-12-13 DinakarJeremy Church 07:40:00 [facility] PHOSPHORUS LEVEL 2021-12-13 Dinakar, Jeremy Church 07:40:00 [facility] MAGNESIUM LEVEL 2021-12-13 Dinakar, Jeremy Church 07:40:00 [facility] HEMOGLOBIN A1C 2021-12-13 DinarJeremy Church 07:40:00 [facility] C-REACTIVE PROTEIN 2021-12-13 WardBebeto Church 07:40:00 Hospital SEDIMENTATION RATE 2021-12-13 Bebeto Ward 07:40:00 Hospital LDH 2021-12-13 Bebeto Ward 07:40:00 Hospital LIPASE LEVEL 2021-12-13 Bebeto Ward 07:40:00 Hospital GGT 2021-12-13 Bebeto Ward 07:40:00 Hospital ESTIMATED GFR 2021-12-13 Jeremy Sandoval 07:40:00 [facility] SMEAR REVIEW 2021-12-13 Jeremy Sandoval 07:40:00 [facility] BLOOD CULTURE, AEROBIC & ANAEROBIC 2021-12-12 Leah Sandoval 12:00:00 [facility] BLOOD CULTURE, AEROBIC & ANAEROBIC 2021-12-12 Leah Sandoval 11:42:00 [facility] ANTI-SPIKE IGG ANTIBODY 2021-12-12 Leah Sandoval TITER 11:40:00 [facility] TROPONIN T 2021-12-12 Stevo Hoskins 11:40:00 [facility] CBC WITH PLATELET AND DIFFERENTIAL 2021-12-12 Leah Sandoval 11:40:00 [facility] 2021-12-12 Jeremy Sandoval SURVEILLANCE 11:40:00 [facility] SMEAR REVIEW 2021-12-12 Jeremy Sandoval 11:40:00 [facility] TROPONIN T 2021-12-12 Stevo Hoskins 09:10:00 [facility] LACTIC ACID LEVEL, SEPSIS - NOW 2021-12-12 Stevo Hoskins AND REPEAT 2X EVERY 3 HOURS 09:10:00 [facility] ital CT ABDOMEN PELVIS W CONTRAST 2021-12-12 Stevo Hoskins 06:58:00 [facility] ECG ED PRELIMINARY INTERPRETATION 2021-12-12 Stevo Hoskins 05:33:45 [facility] URINE CULTURE 2021-12-12 Stevo Hoskins 04:28:00 [facility] URINALYSIS SCREEN AND MICROSCOPY, 2021-12-12 Stevo Hoskins WITH REFLEX TO CULTURE 03:45:00 [facility] COVID-19 QUALITATIVE RT-PCR 2021-12-12 Rehrer, Stevo Meth odist 03:30:00 [facility] PROTHROMBIN TIME WITH INR 2021-12-12 Rehrer, Stevo Method ist 03:30:00 [facility] PARTIAL THROMBOPLASTIN TIME (PTT) 2021-12-12 Rehrer, Stevo Church 03:30:00 [facility] LIPASE LEVEL 2021-12-12 Rehrer, Stevo Church 03:30:00 [facility] TROPONIN T 2021-12-12 Rehrer, Stevo Church 03:30:00 [facility] B NATRIURETIC PEPTIDE 2021-12-12 Rehrer, Stevo Church 03:30:00 [facility] TYPE AND SCREEN 2021-12-12 Rehrer, Stevo Church 03:30:00 [facility] LACTIC ACID LEVEL, SEPSIS - NOW 2021-12-12 Tamie Silveira AND REPEAT 2X EVERY 3 HOURS 03:30:00 Hosp ital ECG 12-LEAD 2021-12-12 Rehrer, Stevo Church 03:08:12 [facility] CBC WITH PLATELET AND DIFFERENTIAL 2021-12-11 Tamie Silveira 22:48:00 Hospital COMPREHENSIVE METABOLIC PANEL 2021-12-11 Tamie Silveira thodist 22:48:00 Hospital LIPASE LEVEL 2021-12-11 Tamie Silveira 22:48:00 Hospital LACTIC ACID LEVEL, SEPSIS - NOW 2021-12-11 Tamie Silveira AND REPEAT 2X EVERY 3 HOURS 22:48:00 Hosp ital ESTIMATED GFR 2021-12-11 Tamie Silveira 22:48:00 Hospital SMEAR REVIEW 2021-12-11 Tamie Silveira 22:48:00 Hospital CBC WITH PLATELET AND DIFFERENTIAL 2021-12-03 Leah Sandoval Church 11:14:00 [facility] PROTHROMBIN TIME WITH INR 2021-12-03 Jeremy Sandoval Method ist 11:14:00 [facility] BASIC METABOLIC PANEL 2021-12-03 Jeremy Sandoval Church 11:14:00 [facility] HEPATIC FUNCTION PANEL 2021-12-03 Jeremy Sandoval Church 11:14:00 [facility] PHOSPHORUS LEVEL 2021-12-03 Dinakar, Jeremy Church 11:14:00 [facility] MAGNESIUM LEVEL 2021-12-03 Dinakar, Jeremy Church 11:14:00 [facility] ESTIMATED GFR 2021-12-03 Dinakar, Jeremy Church 11:14:00 [facility] SMEAR REVIEW 2021-12-03 Dinakar, Jeremy Church 11:14:00 [facility] US DUPLEX VENOUS UPPER EXTREMITY 2021-12-02 Nakia Cruz Church LEFT 18:10:00 Hospital CBC WITH PLATELET AND DIFFERENTIAL 2021-12-02 Dinakar, Leah stuart Church 09:59:00 [facility] PROTHROMBIN TIME WITH INR 2021-12-02 Dinakar, Jeremy Method ist 09:59:00 [facility] BASIC METABOLIC PANEL 2021-12-02 Dinakar, Jeremy Church 09:59:00 [facility] HEPATIC FUNCTION PANEL 2021-12-02 Dinakar, Jeremy Church 09:59:00 [facility] PHOSPHORUS LEVEL 2021-12-02 Dinakar, Jeremy Church 09:59:00 [facility] MAGNESIUM LEVEL 2021-12-02 Dinakar, Jeremy Church 09:59:00 [facility] ESTIMATED GFR 2021-12-02 Dinakar, Jeremy Church 09:59:00 [facility] CBC WITH PLATELET AND DIFFERENTIAL 2021-12-01 Dinakar, Leah stuart Church 10:22:00 [facility] PROTHROMBIN TIME WITH INR 2021-12-01 Dinakar, Jeremy Method ist 10:22:00 [facility] BASIC METABOLIC PANEL 2021-12-01 Dinakar, Jeremy Church 10:22:00 [facility] HEPATIC FUNCTION PANEL 2021-12-01 Dinakar, Jeremy Church 10:22:00 [facility] PHOSPHORUS LEVEL 2021-12-01 Dinakar, Jeremy Church 10:22:00 [facility] MAGNESIUM LEVEL 2021-12-01 Dinakar, Jeremy Church 10:22:00 [facility] ESTIMATED GFR 2021-12-01 Dinakar, Jeremy Church 10:22:00 [facility] SMEAR REVIEW 2021-12-01 Dinakar, Jeremy Church 10:22:00 [facility] ESOPHAGOGASTRODUODENOSCOPY (EGD) 2021-11-30 Elias Guzman Church 19:49:00 Hospital CBC WITH PLATELET AND DIFFERENTIAL 2021-11-30 Dinakar, Leah stuart Church 10:53:00 [facility] PROTHROMBIN TIME WITH INR 2021-11-30 Dinakar, Jeremy Method ist 10:53:00 [facility] BASIC METABOLIC PANEL 2021-11-30 Dinakar, Jeremy Church 10:53:00 [facility] HEPATIC FUNCTION PANEL 2021-11-30 Dinakar, Jeremy Church 10:53:00 [facility] PHOSPHORUS LEVEL 2021-11-30 Dinakar, Jeremy Church 10:53:00 [facility] MAGNESIUM LEVEL 2021-11-30 Dinakar, Jeremy Church 10:53:00 [facility] ESTIMATED GFR 2021-11-30 Dinakar, Jeremy Church 10:53:00 [facility] SMEAR REVIEW 2021-11-30 Dinakar, Jeremy Church 10:53:00 [facility] CBC WITH PLATELET AND DIFFERENTIAL 2021-11-29 Dinakar, Leah stuart Church 10:50:00 [facility] PROTHROMBIN TIME WITH INR 2021-11-29 Dinakar, Jeremy Method ist 10:50:00 [facility] BASIC METABOLIC PANEL 2021-11-29 Dinakar, Jeremy Church 10:50:00 [facility] HEPATIC FUNCTION PANEL 2021-11-29 Dinakar, Jeremy Church 10:50:00 [facility] PHOSPHORUS LEVEL 2021-11-29 Dinakar, Jeremy Church 10:50:00 [facility] MAGNESIUM LEVEL 2021-11-29 Dinakar, Jeremy Church 10:50:00 [facility] ESTIMATED GFR 2021-11-29 Dinakar, Jreemy Church 10:50:00 [facility] SMEAR REVIEW 2021-11-29 Dinakar, Jeremy Church 10:50:00 [facility] CBC WITH PLATELET AND DIFFERENTIAL 2021-11-28 Dinakar, Sati sade Church 09:28:00 [facility] PROTHROMBIN TIME WITH INR 2021-11-28 Dinakar, Jeremy Method ist 09:28:00 [facility] BASIC METABOLIC PANEL 2021-11-28 Dinakar, Jeremy Church 09:28:00 [facility] HEPATIC FUNCTION PANEL 2021-11-28 DinarJeremy Church 09:28:00 [facility] PHOSPHORUS LEVEL 2021-11-28 DinarJeremy Church 09:28:00 [facility] MAGNESIUM LEVEL 2021-11-28 DinakarJeremy Church 09:28:00 [facility] ESTIMATED GFR 2021-11-28 Jeremy Sandoval Church 09:28:00 [facility] OCCULT BLOOD, STOOL 2021-11-27 Jefferson Skelton Church 23:26:00 Hospital XR ABDOMEN 1 VW PORTABLE 2021-11-27 Myra Garcia odist 20:25:00 [facility] CBC WITH PLATELET AND DIFFERENTIAL 2021-11-27 Leah Sandoval 09:07:00 [facility] PROTHROMBIN TIME WITH INR 2021-11-27 Jeremy Sandoval ist 09:07:00 [facility] BASIC METABOLIC PANEL 2021-11-27 Jeremy Sandoval Church 09:07:00 [facility] HEPATIC FUNCTION PANEL 2021-11-27 Jeremy Sandoval Church 09:07:00 [facility] PHOSPHORUS LEVEL 2021-11-27 Jeremy Sandoval Church 09:07:00 [facility] MAGNESIUM LEVEL 2021-11-27 Jeremy Sandoval Church 09:07:00 [facility] HEMOGLOBIN A1C 2021-11-27 Jeremy Sandoval Church 09:07:00 [facility] ESTIMATED GFR 2021-11-27 Jeremy Sandoval 09:07:00 [facility] SMEAR REVIEW 2021-11-27 Jeremy Sandoval Church 09:07:00 [facility] BLOOD CULTURE, AEROBIC & ANAEROBIC 2021-11-27 Leah Sandoval 04:03:00 [facility]SPI[facility]GG ANTIBODY 2021-11-27 Leah Sandoval TITER 04:03:00 [facility] 2021-11-27 Jeremy Sandoval SURVEILLANCE 04:03:00 [facility] CTA ABD/PEL FOR BLEEDING 2021-11-27 Briese, Beau Sloan Metho dist 01:38:34 Hospital HEMOGLOBIN & HEMATOCRIT 2021-11-27 Jefferson Skelton Method ist 01:34:00 Hospital SMEAR REVIEW 2021-11-27 Jefferson Skelton Church 01:34:00 Hospital RESPIRATORY PATHOGEN PANEL WITH 2021-11-27 Jefferson Skelton Alaist COVID-19 RT-PCR 00:58:00 Hospital TYPE AND SCREEN 2021-11-27 Jefferson Skelton Church 00:30:00 Hospital PROTHROMBIN TIME WITH INR 2021-11-27 Jefferson Skelton odist 00:30:00 Hospital AMMONIA LEVEL 2021-11-27 Jefferson Skelton [facility] 00:30:00 Hospital ECG 12-LEAD 2021-11-27 Jefferson Skelton [facility] 00:29:32 Hospital ECG ED PRELIMINARY INTERPRETATION 2021-11-27 Jefferson Skelton [facility] 00:04:12 Hospital CBC WITH PLATELET AND DIFFERENTIAL 2021-11-26 Jefferson Skelton Church 21:32:00 [facility] COMPREHENSIVE METABOLIC PANEL 2021-11-26 Jefferson Skelton [facility] 21:32:00 Hospital LIPASE LEVEL 2021-11-26 Jefferson Skelton [facility] 21:32:00 Hospital HCG QUALITATIVE, SERUM SCREEN 2021-11-26 Jefferson Skelton Church 21:32:00 [facility] ESTIMATED GFR 2021-11-26 Pasquale Cabrales Church 21:32:00 [facility] SMEAR REVIEW 2021-11-26 Pasquale Cabrales Church 21:32:00 [facility] CBC WITH PLATELET AND DIFFERENTIAL 2021-10-26 Nakia Cruz Church 11:26:00 Hospital PROTHROMBIN TIME WITH INR 2021-10-26 Nakia Cruz ist 11:26:00 Hospital BASIC METABOLIC PANEL 2021-10-26 Rafael Arora Church 11:26:00 [facility] ESTIMATED GFR 2021-10-26 Maite Rafael Church 11:26:00 [facility] SMEAR REVIEW 2021-10-26 Nakia Cruz Church 11:26:00 Hospital CBC WITH PLATELET AND DIFFERENTIAL 2021-10-25 Nakia Cruz 09:30:00 Hospital PROTHROMBIN TIME WITH INR 2021-10-25 Nakia Cruz Method ist 09:30:00 Hospital COMPREHENSIVE METABOLIC PANEL 2021-10-25 Nakia Cruz thodist 09:30:00 Hospital ESTIMATED GFR 2021-10-25 Nakia Cruz Church 09:30:00 Hospital MAGNESIUM LEVEL 2021-10-25 Nakia Cruz Church 09:30:00 Hospital PHOSPHORUS LEVEL 2021-10-25 Nakia Cruz Church 09:30:00 Hospital BILIRUBIN DIRECT 2021-10-25 Nakia Cruz Church 09:30:00 Hospital SMEAR REVIEW 2021-10-25 Nakia Cruz 09:30:00 Hospital CBC WITH PLATELET AND DIFFERENTIAL 2021-10-24 Nakia Cruzist 09:17:00 Hospital PROTHROMBIN TIME WITH INR 2021-10-24 Nakia Cruz ist 09:17:00 Hospital COMPREHENSIVE METABOLIC PANEL 2021-10-24 Nakia Cruz thodist 09:17:00 Hospital PHOSPHORUS LEVEL 2021-10-24 Nakia Cruzist 09:17:00 Hospital MAGNESIUM LEVEL 2021-10-24 Nakia Cruz Church 09:17:00 Hospital ESTIMATED GFR 2021-10-24 Nakia Cruz 09:17:00 Hospital SMEAR REVIEW 2021-10-24 Nakia Cruz 09:17:00 Hospital ESOPHAGOGASTRODUODENOSCOPY (EGD) 2021-10-23 Elias Guzmanist 17:25:00 Hospital CBC WITH PLATELET AND DIFFERENTIAL 2021-10-23 Nakia Cruzist 11:38:00 Hospital PROTHROMBIN TIME WITH INR 2021-10-23 Nakia Cruz Method ist 11:38:00 Hospital COMPREHENSIVE METABOLIC PANEL 2021-10-23 Nakia Cruz thodist 11:38:00 Hospital PHOSPHORUS LEVEL 2021-10-23 Nakia Cruz Church 11:38:00 Hospital MAGNESIUM LEVEL 2021-10-23 Nakia Cruz Church 11:38:00 Hospital ESTIMATED GFR 2021-10-23 Nakia Cruz Church 11:38:00 Hospital SMEAR REVIEW 2021-10-23 Nakia Cruz 11:38:00 Hospital TTE COMPLETE, W CONTRAST, W 2021-10-22 Myra Garcia DOPPLER ([id number]) 14:21:00 [facility] CBC WITH PLATELET AND DIFFERENTIAL 2021-10-22 Nakia Cruz 10:31:00 Hospital PROTHROMBIN TIME WITH INR 2021-10-22 Nakia Cruz ist 10:31:00 [facility] COMPREHENSIVE METABOLIC PANEL 2021-10-22 Nakia Cruz thodist 10:31:00 Hospital PHOSPHORUS LEVEL 2021-10-22 Nakia Cruzist 10:31:00 Hospital MAGNESIUM LEVEL 2021-10-22 Nakia Cruz 10:31:00 Hospital THYROID STIMULATING HORMONE 2021-10-22 Nakia Cruz odist 10:31:00 [facility] T4 2021-10-22 Nakia Cruz 10:31:00 [facility] VITAMIN D 25 HYDROXY LEVEL 2021-10-22 Nakia Cruzo dist 10:31:00 Hospital ALPHA FETOPROTEIN 2021-10-22 Myra Garciaist 10:31:00 [facility] ESTIMATED GFR 2021-10-22 Nakia Cruz 10:31:00 [facility] SMEAR REVIEW 2021-10-22 Nakia Cruz 10:31:00 [facility] COVID-19 QUALITATIVE RT-PCR 2021-10-22 Nakia Cruz odist 00:29:00 [facility] URINE CULTURE 2021-10-21 Nakia Cruz 22:46:00 [facility] URINALYSIS SCREEN AND MICROSCOPY, 2021-10-21 Nakia Cruz WITH REFLEX TO CULTURE 22:46:00 [facility] XR ABDOMEN 1 VW PORTABLE 2021-10-21 Myra Garcia odist 22:35:[address] [facility] [address] ABDOMEN PELVIS WO CONTRAST 2021-10-21 Nakia Cruz thodist 20:20:30 [facility] ZZCOVID-19 ANTI-SPIKE IGG ANTIBODY 2021-10-21 Nakia Cruz TITER 16:31:00 [facility] CBC WITH PLATELET AND DIFFERENTIAL 2021-10-21 Nakia Cruz 16:31:00 [facility] COMPREHENSIVE METABOLIC PANEL 2021-10-21 Nakia Cruz thodist 16:31:00 Hospital PROTHROMBIN TIME WITH INR 2021-10-21 Nakia Cruz Method ist 16:31:00 Hospital MAGNESIUM LEVEL 2021-10-21 Nakia Cruzist 16:31:00 Hospital PHOSPHORUS LEVEL 2021-10-21 Nakia Cruz Church 16:31:00 Hospital LIPASE LEVEL 2021-10-21 Nakia Cruz Church 16:31:00 Hospital ZZCOVID-19 SEROLOGY PATIENT 2021-10-21 Nakia Cruz Meth odist SURVEILLANCE 16:31:00 Hospital ESTIMATED GFR 2021-10-21 Nakia Cruz 16:31:00 Hospital XR KNEE 3 VW RIGHT 2021-09-29 Charles[facility]ukhdev [facility] 04:06:00 [facility] NOTICE OF PRIVACY PRACTICES 2021-09-29 Doctor Kathleen [facility] of 02:46:43 [place] [facility] CONSENT/REFUSAL FOR DIAGNOSIS AND 2021-09-29 Doctor Buck olmedo [facility] 02:46:16 [place] [facility] XR KNEE 3 VW LEFT 2021-04-02 [facility] o f 20:10:39 F [facility] CONSENT/REFUSAL FOR DIAGNOSIS AND 2021-04-02 [facility] 17:59[facility]31 [place] [facility] ASSIGNMENT OF BENEFITS 2021-03-10 Doctor Kathleen [facility] sity of 20:29:46 [place] [facility] HC COMPLETE BLD COUNT W/AUTO DIFF 2021-02-20 Anabella Suresh 10:53:00 [facility] BASIC METABOLIC PANEL 2021-02-20 Anabella Suresh 10:53:00 [facility] HEPATIC FUNCTION PANEL 2021-02-20 Anabella Suresh 10:53:00 [facility] MAGNESIUM LEVEL 2021-02-20 Anabella Suresh 10:53:00 [facility] PHOSPHORUS LEVEL 2021-02-20 Anabella Suresh 10:53:00 [facility] PROTHROMBIN TIME WITH INR 2021-02-20 Rosemary Suresht 10:53:00 [facility] ESTIMATED GFR 2021-02-20 Anabella Suresh 10:53:00 [facility] SMEAR REVIEW 2021-02-20 Anabella Suresh 10:53:00 [facility] MRI CHOLANGIOGRAM WO CONTRAST 2021-02-20 Jeremy Sandoval [place] thodist 00:15:00 [facility] VENIPUNC NEED PHYS SKILL,DX OR RX 2021-02-19 Latanya Ring lda Church 16:10:21 Hospital HC COMPLETE BLD COUNT W/AUTO DIFF 2021-02-19 Anabella Suresh 11:00:00 [facility] BASIC METABOLIC PANEL 2021-02-19 Anabella Suresh 11:00:00 [facility] HEPATIC FUNCTION PANEL 2021-02-19 Anabella Suresh 11:00:00 [facility] MAGNESIUM LEVEL 2021-02-19 Anabella Suresh 11:00:00 [facility] PHOSPHORUS LEVEL 2021-02-19 Anabella Suresh 11:00:00 [facility] PROTHROMBIN TIME WITH INR 2021-02-19 Rosemary Suresht 11:00:00 [facility] ESTIMATED GFR 2021-02-19 Anabella Suresh 11:00:00 [facility] SMEAR REVIEW 2021-02-19 Anabella Suresh 11:00:[address] [facility] CT ABDOMEN PELVIS WO CONTRAST 2021-02-19 Me Demetrice thodist 03:25:00 [facility] URINE CULTURE 2021-02-19 Anabella Suresh 02:27:00 [facility] URINALYSIS SCREEN AND MICROSCOPY, 2021-02-19 Anabella Suresh WITH REFLEX TO CULTURE 02:27:00 [facility] BLOOD CULTURE, AEROBIC & ANAEROBIC 2021-02-18 Anabella Suresh 23:25:00 [facility] TYPE AND SCREEN 2021-02-18 Dre Mayer 23:25:00 Hospital COVID-19 ANTI-SPIKE IGG ANTIBODY 2021-02-18 Anabella Suresh TITER 22:57:00 [facility] COVID-19 SEROLOGY PATIENT 2021-02-18 Rosemary Suresh ist SURVEILLANCE 22:57:00 [facility] HC COMPLETE BLD COUNT W/AUTO DIFF 2021-02-18 Anabella Suresh 22:57:00 [facility] PROTHROMBIN TIME WITH INR 2021-02-18 Rosemary Suresh ist 22:57:00 [facility] COMPREHENSIVE METABOLIC PANEL 2021-02-18 Me Demetrice thodist 22:57:00 [facility] LACTIC ACID LEVEL 2021-02-18 Anabella Suresh 22:57:00 [facility] MAGNESIUM LEVEL 2021-02-18 Anabella Suresh 22:57:00 [facility] PHOSPHORUS LEVEL 2021-02-18 Anabella Suresh 22:57:00 [facility] LIPASE LEVEL 2021-02-18 Anabella Suresh 22:57:00 [facility] ESTIMATED GFR 2021-02-18 Anabella Suresh 22:57:00 [facility] SMEAR REVIEW 2021-02-18 Anbaella Suresh 22:57:00 [facility] PHOSPHORUS 2020-10-03 Brenda Teixeira of 08:52:00 [facility] MAGNESIUM 2020-10-03 [facility] of 08:52:00 [facility] COMP. METABOLIC PANEL ([id number]) 2020-10-03 Brenda Teixeira Un iversity of 08:52:00 [facility] CBC WITH DIFF 2020-10-03 Brenda Teixeira of 08:52:00 [facility] COMP. METABOLIC PANEL ([id number]) 2020-10-02 Brenda Teixeira Un iversity of 08:39:00 [facility] CBC WITH DIFF 2020-10-02 Brenda Teixeira [place] of 08:39:00 [facility] US DUPLEX VENOUS ARM LEFT - BY 2020-10-01 Brenda Teixeira U niversity of VASCULAR LAB 16:22:58 [facility] COMP. METABOLIC PANEL ([id number]) 2020-10-01 Tomasa Rucker Un iversity of 07:45:00 [facility] CBC WITH DIFF 2020-10-01 Tomasa Rucker [facility] of 07:45:00 [facility] TROPONIN I 2020-09-[address] [facility] of 10:56:00 [facility] COMP. METABOLIC PANEL ([id number]) 2020-09-30 Shaina Pinto iversity of 10:56:00 [facility] CBC WITH DIFF 2020-09-30 Millie [facility] of 10:56:00 [facility] N-TERMINAL PRO-BNP 2020-09-30 Millie [facility] of 08:05:00 [facility] OCCULT (GUAIAC) BLOOD 2020-09-30 Millie, [facility] of 02:10:00 [facility] FECAL LEUKOCYTES 2020-09-30 Millie, [facility] of 02:10:00 [facility] CLOSTRIDIUM DIFFICILE TOXIN 2020-09-30 Millie, [facility] ersity of 02:10:00 [facility] FECAL PATHOGENS BY PCR 2020-09-30 Millie [facility] y of 02:10:00 [facility] POCT GLUCOSE (AUTOMATED) 2020-09-30 Rene Evans [facility] sity of 00:35:00 [facility] BASIC METABOLIC PANEL (NA, K, CL, 2020-09-29 Millie [facility] of CO2, GLUCOSE, BUN, CREATININE, CA) 21:11:00 [facility] HEMOGLOBIN 2020-09-29 Tomasa Rucker [place] of 21:11:00 [facility] TRANSTHORACIC ECHO (TTE) COMPLETE 2020-09-[address] [facility] of 16:03:00 [facility] HB ECG ROUTINE & RHYTHM STRIP 2020-09-29 Shaina Pinto iversity of 11:18:58 [facility] OSMOLALITY URINE 2020-09-29 Millie [facility] of 08:56:00 [facility] URINE CULTURE 2020-09-29 Millie [facility] of 08:56:00 [facility] SODIUM, URINE RANDOM 2020-09-29 Millie [facility] of 08:56:00 [facility] PROTEIN CREAT RATIO URINE RANDOM 2020-09-29 Millie [facility] of 08:56:00 [facility] BLOOD CULTURE SCREEN 2020-09-29 Millie [facility] of 08:32:00 [facility] LACTIC ACID WHOLE BLOOD 2020-09-29 Millie [facility] ty of 08:32:00 [facility] VITAMIN B12, LEVEL 2020-09-29 Millie [facility] of 08:31:00 [facility] C-REACTIVE PROTEIN 2020-09-29 Millie [facility] of 08:31:00 [facility] IRON PANEL 2020-09-29 Millie [facility] of 08:31:00 [facility] SEDIMENTATION RATE 2020-09-29 Millie [facility] of 08:31:00 [facility] DIFF CONSULT INTERPRETATION 2020-09-29 Millie [facility] ersity of 08:31:00 [facility] CBC WITH DIFF 2020-09-29 Millie [facility] of 08:31:00 [facility] PROTHROMBIN TIME / INR 2020-09-29 Millie [facility] y of 08:31:00 [facility] N-TERMINAL PRO-BNP 2020-09-29 Millie [facility] of 08:31:00 [facility] VITAMIN D, 25-OH 2020-09-29 Millie [facility] of 08:31:00 [facility] PROCALCITONIN 2020-09-29 Millie [facility] of 08:31:00 [facility] COVID-19 (ID NOW RAPID TESTING) 2020-09-29 Rene Evans [place] of 05:10:00 [facility] LAB ONLY COVID INTERPRETATION 2020-09-29 Rene Evans [facility] of 05:10:00 [facility] CT ABDOMEN PELVIS W CONTRAST 2020-09-29 Rene Evans Un iversity of 04:56:31 [facility] URINALYSIS 2020-09-29 Rene Evans [place] of 04:19:00 [facility] PHOSPHORUS 2020-09-29 Shaina Pinto [place] of 03:54:00 [facility] CREATINE KINASE 2020-09-29 Shaina Pinto [place] of 03:54:00 [facility] URIC ACID 2020-09-29 Shaina Pinto [place] of 03:54:00 [facility] LIPASE 2020-09-29 Rene Evans [place] of 03:54:00 [facility] MAGNESIUM 2020-09-29 Shaina Pinto of 03:54:00 [facility] FERRITIN SERUM 2020-09-29 Shaina Pinto of 03:54:00 [facility] TROPONIN I 2020-09-29 Marco Levy [place] of 03:54:00 [facility] THYROID STIMULATING HORMONE 2020-09-29 Shaina Pinto [facility] ersity of 03:54:00 [facility] COMP. METABOLIC PANEL ([id number]) 2020-09-29 Rene Evans [facility] of 03:54:00 [facility] LIPID PANEL ([id number])(TOTAL 2020-09-29 Shaina Pinto [facility] sity of CHOLESTEROL, TRIGLYCERIDES, HDL) 03:54:00 [facility] CBC WITH DIFF 2020-09-29 Rene Evans [facility] of 03:54:00 [facility] GLYCOSYLATED HEMOGLOBIN (A1C) 2020-09-29 Shaina Pinto Un iversity of 03:54:00 [facility] N-TERMINAL PRO-BNP 2020-09-29 Shaina Pinto [place] of 03:54:00 [facility] CONSENT/REFUSAL FOR DIAGNOSIS AND 2020-09-29 Doctor Unassig shara, [facility] 03:18:51 [place] [facility] [place] NOTICE OF PRIVACY PRACTICES 2020-09-29 Doctor Unassigned, U niversity of 03:18:30 [place] [facility] CT ABDOMEN PELVIS W CONTRAST 2019-08-11 Corby Ca Uni versity of 14:50:46 [facility] COMP. METABOLIC PANEL (70247) 2019-08-11 Shaina Pinto Un iversity of 08:00:00 [facility] CBC WITH DIFFERENTIAL 2019-08-11 Shaina Pinto of 08:00:00 [facility] CBC WITH DIFFERENTIAL 2019-08-11 Shaina Pinto of 08:00:00 [facility] XR SMALL BOWEL SERIES 2019-08-10 Valente Piña of 21:18:47 [facility] XR ABDOMEN 1 VW 2019-08-10 hSaina Pinto of 11:52:39 [facility] PHOSPHORUS 2019-08-10 Shaina Pinto of 11:11:00 [facility] CREATINE KINASE 2019-08-10 Shaina Pinto of 11:11:00 [facility] AMYLASE 2019-08-10 Shaina Pinto [place] of 11:11:00 [facility] LIPASE 2019-08-10 Shaina Pinto [place] of 11:11:00 [facility] MAGNESIUM 2019-08-10 Shaina Pinto [place] of 11:11:00 [facility] TEST, SERUM 2019-08-10 Shaina Pinto [place] of 11:11:00 [facility] THYROID STIMULATING HORMONE 2019-08-10 Shaina Pinto Univ ersity of 11:11:00 [facility] COMP. METABOLIC PANEL (11531) 2019-08-10 Shaina Pinto Un iversity of 11:11:00 [facility] LIPID PANEL (28711)(TOTAL 2019-08-10 Shaina Pinto [facility] sity of CHOLESTEROL, TRIGLYCERIDES, HDL) 11:11:00 [facility] SEDIMENTATION RATE 2019-08-10 Shaina Pinto [place] of 11:11:00 [facility] CBC WITH DIFFERENTIAL 2019-08-10 Shaina Pinto [place] of 11:11:00 [facility] GLYCOSYLATED HEMOGLOBIN (A1C) 2019-08-10 Shaina Pinto Un iversity of 11:11:00 [facility] PROTHROMBIN TIME / INR 2019-08-10 [facility] 11:11:00 [facility] CORONAVIRUS COVID-19 TESTING 2019-08-10 Shaina Pinto Uni versity of 09:04:00 [facility] Plan of Care Planned Activity Planned Date Details Comments Source Future Scheduled 2022-04-30 Hepatitis C screening [facility] Test 10:39:21 (procedure) [code = 090253462] Future Scheduled 2022-04-30 Screening for [facility] Test 10:39:21 malignant neoplasm of cervix (procedure) [code = 997978017] Future Scheduled 2022-04-30 BREAST CANCER [facility] Test 10:39:21 SCREENING [code = BREAST CANCER SCREENING] Future Scheduled 2022-04-30 COLONOSCOPY SCREENING [facility] Test 10:39:21 [code = COLONOSCOPY SCREENING] Future Scheduled 2022-04-30 SHINGLES VACCINES (1 Met [facility] Test 10:39:21 of 2) [code = SHINGLES VACCINES (1 of 2)] Future Scheduled 2022-04-30 COVID-19 VACCINE (3 - [facility] Test 10:39:21 Booster for Moderna series) [code = COVID-19 VACCINE (3 - Booster for Moderna series)] Future Scheduled 2022-04-30 HEPATITIS B VACCINES Met [facility] Test 10:39:21 (1 of 3 - Risk 3-dose series) [code = HEPATITIS B VACCINES (1 of 3 - Risk 3-dose series)] Future Scheduled 2022-04-30 Pneumococcal Vaccine: [facility] Test 10:39:21 Pediatrics (0 to 5 Years) and At-Risk Patients (6 to 64 Years) (2 - PCV) [code = Pneumococcal Vaccine: Pediatrics (0 to 5 Years) and At-Risk Patients (6 to 64 Years) (2 - PCV)] Future Scheduled 2022-04-03 Hepatitis C screening [facility] Test 09:24:01 (procedure) [code = [id number]] Future Scheduled 2022-04-03 Screening for [facility] Test 09:24:01 malignant neoplasm of cervix (procedure) [code = 916912886] Future Scheduled 2022-04-03 BREAST CANCER [facility] Test 09:24:01 SCREENING [code = BREAST CANCER SCREENING] Future Scheduled 2022-04-03 COLONOSCOPY SCREENING [facility] Test 09:24:01 [code = COLONOSCOPY SCREENING] Future Scheduled 2022-04-03 SHINGLES VACCINES (1 Met [facility] Test 09:24:01 of 2) [code = SHINGLES VACCINES (1 of 2)] Future Scheduled 2022-04-03 COVID-19 VACCINE (3 - [facility] Test 09:24:01 Booster for Moderna series) [code = COVID-19 VACCINE (3 - Booster for Moderna series)] Future Scheduled 2022-04-03 HEPATITIS B VACCINES Met [facility] Test 09:24:01 (1 of 3 - Risk 3-dose series) [code = HEPATITIS B VACCINES (1 of 3 - Risk 3-dose series)] Future Scheduled 2022-04-03 Pneumococcal Vaccine: [facility] Test 09:24:01 Pediatrics (0 to 5 Years) and At-Risk Patients (6 to 64 Years) (2 - PCV) [code = Pneumococcal Vaccine: Pediatrics (0 to 5 Years) and At-Risk Patients (6 to 64 Years) (2 - PCV)] Future Scheduled 2022-03-25 Hepatitis C screening [facility] Test 03:54:02 (procedure) [code = [id number]] Future Scheduled 2022-03-25 BREAST CANCER [facility] Test 03:54:02 SCREENING [code = BREAST CANCER SCREENING] Future Scheduled 2022-03-25 COLONOSCOPY SCREENING [facility] Test 03:54:02 [code = COLONOSCOPY SCREENING] Future Scheduled 2022-03-25 SHINGLES VACCINES (1 Met [facility] Test 03:54:02 of 2) [code = SHINGLES VACCINES (1 of 2)] Future Scheduled 2022-03-25 COVID-19 VACCINE (3 - [facility] Test 03:54:02 Booster for Moderna series) [code = COVID-19 VACCINE (3 - Booster for Moderna series)] Future Scheduled 2022-03-25 HEPATITIS B VACCINES Met [facility] Test 03:54:02 (1 of 3 - Risk 3-dose series) [code = HEPATITIS B VACCINES (1 of 3 - Risk 3-dose series)] Future Scheduled 2022-03-25 Pneumococcal Vaccine: [facility] Test 03:54:02 Pediatrics (0 to 5 Years) and At-Risk Patients (6 to 64 Years) (2 - PCV) [code = Pneumococcal Vaccine: Pediatrics (0 to 5 Years) and At-Risk Patients (6 to 64 Years) (2 - PCV)] Future Scheduled 2022-03-15 Hepatitis C screening [facility] Test 14:24:37 (procedure) [code = 804788604] Future Scheduled 2022-03-15 Screening for [facility] Test 14:24:37 malignant neoplasm of cervix (procedure) [code = 735062129] Future Scheduled 2022-03-15 BREAST CANCER [facility] Test 14:24:37 SCREENING [code = BREAST CANCER SCREENING] Future Scheduled 2022-03-15 COLONOSCOPY SCREENING [facility] Test 14:24:37 [code = COLONOSCOPY SCREENING] Future Scheduled 2022-03-15 SHINGLES VACCINES (1 Met [facility] Test 14:24:37 of 2) [code = SHINGLES VACCINES (1 of 2)] Future Scheduled 2022-03-15 COVID-19 VACCINE (3 - [facility] Test 14:24:37 Booster for Moderna series) [code = COVID-19 VACCINE (3 - Booster for Moderna series)] Future Scheduled 2022-03-15 HEPATITIS B VACCINES Met [facility] Test 14:24:37 (1 of 3 - Risk 3-dose series) [code = HEPATITIS B VACCINES (1 of 3 - Risk 3-dose series)] Future Scheduled 2022-03-15 Pneumococcal Vaccine: [facility] Test 14:24:37 Pediatrics (0 to 5 Years) and At-Risk Patients (6 to 64 Years) (2 - PCV) [code = Pneumococcal Vaccine: Pediatrics (0 to 5 Years) and At-Risk Patients (6 to 64 Years) (2 - PCV)] Future Scheduled 2022-01-15 Pneumococcal Vaccine: [facility] Test 07:35:31 Pediatrics (0 to 5 Years) and At-Risk Patients (6 to 64 Years) (1 - PCV) [code = Pneumococcal Vaccine: Pediatrics (0 to 5 Years) and At-Risk Patients (6 to 64 Years) (1 - PCV)] Future Scheduled 2022-01-15 Hepatitis C screening [facility] Test 07:35:31 (procedure) [code = 471089595] Future Scheduled 2022-01-15 Screening for [facility] Test 07:35:31 malignant neoplasm of cervix (procedure) [code = 204221351] Future Scheduled 2022-01-15 BREAST CANCER [facility] Test 07:35:31 SCREENING [code = BREAST CANCER SCREENING] Future Scheduled 2022-01-15 COLONOSCOPY SCREENING [facility] Test 07:35:31 [code = COLONOSCOPY SCREENING] Future Scheduled 2022-01-15 SHINGLES VACCINES (1 Met [facility] Test 07:35:31 of 2) [code = SHINGLES VACCINES (1 of 2)] Future Scheduled 2022-01-15 COVID-19 VACCINE (3 - [facility] Test 07:35:31 Booster for Moderna series) [code = COVID-19 VACCINE (3 - Booster for Moderna series)] Future Scheduled 2022-01-15 HEPATITIS B VACCINES Met [facility] Test 07:35:31 (1 of 3 - Risk 3-dose series) [code = HEPATITIS B VACCINES (1 of 3 - Risk 3-dose series)] Future Scheduled 2022-01-13 Pneumococcal Vaccine: [facility] Test 14:41:05 Pediatrics (0 to 5 Years) and At-Risk Patients (6 to 64 Years) (1 - PCV) [code = Pneumococcal Vaccine: Pediatrics (0 to 5 Years) and At-Risk Patients (6 to 64 Years) (1 - PCV)] Future Scheduled 2022-01-13 Hepatitis C screening [facility] Test 14:41:05 (procedure) [code = 958804663] Future Scheduled 2022-01-13 Screening for [facility] Test 14:41:05 malignant neoplasm of cervix (procedure) [code = 256211714] Future Scheduled 2022-01-13 BREAST CANCER [facility] Test 14:41:05 SCREENING [code = BREAST CANCER SCREENING] Future Scheduled 2022-01-13 COLONOSCOPY SCREENING [facility] Test 14:41:05 [code = COLONOSCOPY SCREENING] Future Scheduled 2022-01-13 SHINGLES VACCINES (1 Met [facility] Test 14:41:05 of 2) [code = SHINGLES VACCINES (1 of 2)] Future Scheduled 2022-01-13 COVID-19 VACCINE (3 - [facility] Test 14:41:05 Booster for Moderna series) [code = COVID-19 VACCINE (3 - Booster for Moderna series)] Future Scheduled 2022-01-13 HEPATITIS B VACCINES Met [facility] Test 14:41:05 (1 of 3 - Risk 3-dose series) [code = HEPATITIS B VACCINES (1 of 3 - Risk 3-dose series)] Future Scheduled 2021-12-24 Pneumococcal Vaccine: [facility] Test 07:34:42 Pediatrics (0 to 5 Years) and At-Risk Patients (6 to 64 Years) (1 - PCV) [code = Pneumococcal Vaccine: Pediatrics (0 to 5 Years) and At-Risk Patients (6 to 64 Years) (1 - PCV)] Future Scheduled 2021-12-24 Hepatitis C screening [facility] Test 07:34:42 (procedure) [code = 954166698] Future Scheduled 2021-12-24 Screening for [facility] Test 07:34:42 malignant neoplasm of cervix (procedure) [code = 938270097] Future Scheduled 2021-12-24 BREAST CANCER [facility] Test 07:34:42 SCREENING [code = BREAST CANCER SCREENING] Future Scheduled 2021-12-24 COLONOSCOPY SCREENING [facility] Test 07:34:42 [code = COLONOSCOPY SCREENING] Future Scheduled 2021-12-24 SHINGLES VACCINES (1 Met [facility] Test 07:34:42 of 2) [code = SHINGLES VACCINES (1 of 2)] Future Scheduled 2021-12-24 COVID-19 VACCINE (3 - [facility] Test 07:34:42 Booster for Moderna series) [code = COVID-19 VACCINE (3 - Booster for Moderna series)] Future Scheduled 2021-12-24 HEPATITIS B VACCINES Met [facility] Test 07:34:42 (1 of 3 - Risk 3-dose series) [code = HEPATITIS B VACCINES (1 of 3 - Risk 3-dose series)] Future Scheduled 2021-12-09 Pneumococcal Vaccine: [facility] Test 13:56:39 Pediatrics (0 to 5 Years) and At-Risk Patients (6 to 64 Years) (1 - PCV) [code = Pneumococcal Vaccine: Pediatrics (0 to 5 Years) and At-Risk Patients (6 to 64 Years) (1 - PCV)] Future Scheduled 2021-12-09 Hepatitis C screening [facility] Test 13:56:39 (procedure) [code = 960185021] Future Scheduled 2021-12-09 Screening for [facility] Test 13:56:39 malignant neoplasm of cervix (procedure) [code = 028770830] Future Scheduled 2021-12-09 BREAST CANCER [facility] Test 13:56:39 SCREENING [code = BREAST CANCER SCREENING] Future Scheduled 2021-12-09 COLONOSCOPY SCREENING [facility] Test 13:56:39 [code = COLONOSCOPY SCREENING] Future Scheduled 2021-12-09 SHINGLES VACCINES (1 Met [facility] Test 13:56:39 of 2) [code = SHINGLES VACCINES (1 of 2)] Future Scheduled 2021-12-09 COVID-19 VACCINE (3 - [facility] Test 13:56:39 Booster for Moderna series) [code = COVID-19 VACCINE (3 - Booster for Moderna series)] Future Scheduled 2021-12-09 HEPATITIS B VACCINES Met [facility] Test 13:56:39 (1 of 3 - Risk 3-dose series) [code = HEPATITIS B VACCINES (1 of 3 - Risk 3-dose series)] Future Scheduled 2021-12-09 INFLUENZA VACCINE Method [facility] Test 13:56:39 [code = INFLUENZA VACCINE] Encounters Start End Encounter Admission Attending Care Care Encounter Source Date/Time Date/Time Type Type Clinicians Facility Department ID 2022-05-12 Outpatient [place], STLMLC STLMLC [id number] Common 09:47:00 Annalise [id number] [facility] 2022 Outpatient Harley STLMLC STLMLC [id number] Common 07:49:00 Annalise 53032 [facility] 2022-03-25 Outpatient [place], STLMLC STLMLC [id number] Common 12:49:01 Annalise [facility] 2022-03-24 Outpatient [place], STLMLC STLMLC [id number] Common 11:16:01 Annalise [facility] 2022-03-23 Outpatient Kattegummul STLMLC STLMLC [id number] Common 15:33:00 a, Madhu [facility] 2021-10-13 Outpatient Kattegummul STLMLC STLMLC [id number] Common 14:25:01 a, Madhu [facility] 2021-05-06 Outpatient Kattegummul STLMLC STLMLC [id number] Common 14:30:56 a, Madhu [facility] 2021-05-06 Outpatient Kattegummul STLMLC STLMLC [id number] Common 14:26:04 a, Madhu 04311 [facility] 2021-05-06 Outpatient Kattegummul STLMLC STLMLC [id number] Common 14:05:28 a, Madhu 17206 [facility] 2021-05-06 Outpatient Kattegummul STLMLC STLMLC [id number] Common 13:37:29 a, Madhu 30520 [facility] 2021-05-06 Outpatient [place], STLMLC STLMLC [id number] Common 13:36:02 Annalise [id number] [facility] 2021-05-06 Outpatient [place], STLMLC [facility] [id number] Common 11:25:36 Annalise [id number] [facility] 2021-02-09 Emergency [facility] [id number] Univers 02:25:27 ity [facility] 2022-05-24 2022-05-30 Inpatient SYLVIA [facility] [id number] [place] 00:00:00 00:00:00 BEBETO 233 Method i 2022-05-06 2022-05-20 Inpatient RAFAEL ARORA [facility] [id number] [place] 00:00:00 00:00:00 847 Method i 2022-04-15 2022-04-15 [facility] [id number] Univers 20:21:00 22:43:00 ESTEPHANIA [facility] 2022-04-15 2022-04-15 [facility] 1.2.071.197 [id number] Univers 20:21:00 22:43:00 Estephania WHITT 350.1.13.10 i ty of Maulik PARRY 4.2.7.2.686 [facility] [id number] [address] 2022-04-09 2022-04-09 Emergency [facility] [id number] Univers 19:38:00 22:06:00 EMILY [facility] 2022-04-09 2022-04-09 Emergency [facility] 1.2.067.583 [id number] Univers 19:38:00 22:06:00 [facility]13.10 [facility] 4.2.7.2.686 [facility] [id number] [address] 2022-03-17 2022-03-17 Documentat Ijir, 1.2.840.1 [id number] Methodi 00:00:00 00:00:[address] 3.430.2.7 Hospit a .3.712647 l .8 2022-02-25 2022-02-27 Emergency RehrerStevo 1.2.840.1 10 [id number] Methodi 12:36:00 18:45:[address] Sandoval 85107.1.[address] 3.430.2.7 Hospit a .3.074292 l .8 2022-02-25 2022-02-25 Travel 1.2.840.1 1.2.305.373 0212 [id number] Methodi 00:00:00 00:00:[address] 3.430.2.7 0.2.7.3.698 Ho spita .3.748895 084.8 l .8 2022-02-15 2022-02-15 Emergency X [facility] ERT [id number] Univers 13:44:00 16:34:00 FLORIAN aburto [facility] 2022-02-15 2022-02-15 Emergency [facility] 1.2.173.611 [id number] Univers 13:44:00 16:34:00 Florian WHITT 350.1.13.10 i ty [facility] 4.2.7.2.686 [facility] [id number] [address] 2022-01-31 2022-02-04 [facility] 1.2.840.1 [id number] Methodi 18:11:00 16:36:00 Encounter Bebeto Ward 71874.1.[address] Nakia Cruz 3.430.2.7 Hos alvaro .3.585912 l .8 2022-02-03 2022-02-03 Anesthesia Aziza Cordero 1.2.840.1 [id number] Methodi 14:37:00 15:02:00 Event Bebeto Heck 66970.1.[address] 3.430.2.7 Hospit a .3.675064 l .8 2022-02-03 2022-02-03 Surgery Verónica 1.2.840.1 [id number] Methodi 14:30:00 15:00:00 Carolin Diaz 63017.1.[address] 3.430.2.7 Hospit a .3.764823 l .8 2022-02-02 2022-02-02 Prep for Verónica, 1.2.840.1 [id number] 86667 Methodi 00:00:00 00:00:00 Surgery Carolin Diaz 97918.1.[address] 3.430.2.7 Hospit a .3.483328 l .8 2022-01-01 2022-01-06 [facility] BernsteinVandana 1.2.840 .1 [id number] Methodi 23:18:00 19:11:00 Encounter Nakia Cruz 08268.1.[address] DinJeremy hernandez 3.430.2.7 Hospita .3.688507 l .8 2022-01-05 2022-01-05 Surgery Angelcosmo, 1.2.840.1 [id number] 70495 Methodi 16:00:00 16:30:[address] 3.430.2.7 Hospit a .3.289606 l .8 2022-01-05 2022-01-05 Anesthesia Handy Dietrich 1.2.840 .1 [id number] Methodi 15:55:00 16:18:00 Event Bebeto Heck 02945.1.[address] 3.430.2.7 Hospit a .3.307964 l .8 2022-01-02 2022-01-02 Travel 1.2.840.1 1.2.071.961 7607 [id number] Methodi 00:00:00 00:00:[address] 3.430.2.7 0.2.7.3.698 Ho spita .3.697060 084.8 l .8 2021-12-11 2021-12-18 [facility] Stevo Hoskins 1.2.840.1 104 [id number] Methodi 16:59:00 17:46:00 Jeremy Bowens 97241.1.[address] Bebeto Ward 3.430.2.7 Hospita .3.718351 l .8 2021-11-26 2021-12-03 [facility] 1.2.840.1 [id number] Methodi 16:08:00 14:06:00 Encounter Jeremy Sandoval 28923.1.[address] Willian Garcia 3.430.2.7 Hospita Nakia Cruz .3.766033 l .8 2021-11-30 2021-11-30 Anesthesia Mahnaz Trujillo 1.2.840.1 1 [id number] Methodi 14:50:00 15:11:00 Event Feng Burgos 24901.1.[address] 3.430.2.7 Hospit a .3.360394 l .8 2021-11-30 2021-11-30 Surgery Shivni, 1.2.840.1 [id number] Methodi 14:30:00 15:00:[address] 3.430.2.7 Hospit a .3.824881 l .8 2021-10-21 2021-10-26 [facility] Sharita Suresh 1.2.840.1 [id number] Methodi 09:04:00 14:43:00 Encounter Nancy Nakia 47730.1.[address] Rafael Arora 3.430.2.7 Hospita .3.417207 l .8 2021-10-23 2021-10-23 Surgery Duchini, 1.2.840.1 [id number] Methodi 12:30:00 13:30:[address] 3.430.2.7 Hospit a .3.744175 l .8 2021-10-23 2021-10-23 Anesthesia Aziza Cordero 1.2.840.1 [id number] Methodi 12:25:00 12:53:[address] 3.430.2.7 Hospit a .3.842452 l .8 2021-10-21 2021-10-21 Travel 1.2.840.1 1.2.843.023 3278 [id number] Methodi 00:00:00 00:00:[address] 3.430.2.7 0.2.7.3.698 Ho spita .3.033729 084.8 l .8 2021-09-28 2021-09-29 Emergency X CHARLES Sukhdev [facility] ERT [id number] Univers 22:03:00 00:15:00 ity of [facility] 2021-09-28 2021-09-29 Emergency Charles [facility] 1.2.840.114 [id number] Univers 22:03:00 00:15:00 Mary WIHTT 350.1.13.10 i ty of [place] 4.2.7.2.686 [facility] [id number] [facility] [address] 2021-09-28 2021-09-28 Orders Doctor VERONIQUE 1.2.840.114 [id number] Univers 00:00:00 00:00:00 Only Unassigned, GONZALO 350.1.13.10 ity of [place] [facility] 4.2.7.2.[id number] [facility] [address] 2021-04-07 2021-04-07 Letter Orthopedic [facility] 1.2.840.114 [id number] Univers 00:00:00 00:00:00 (Out) Clinic SPECIALTY 350.1.13.10 ity of CARE 4.2.7.2.686 [facility] AT [id number] W[place] dical [place] [address] [facility] 2021-04-02 2021-04-02 Emergency [facility] [id number] Univers 12:58:00 15:25:00 AZALEA ity of [facility] 2021-04-02 2021-04-02 Emergency Beatriz [facility] 1.2.840.114 [id number] Univers 12:58:00 15:25:00 Azalea WHITT 350.1.13.10 ity [place].2.[place] [id number] [facility] 084 Branch 2021-03-11 2021-03-11 Telephone VERONIQUE Cruz 1.2.139.708 6170 9674 Univers 00:00:00 00:00:00 Frances SÁNCHEZ 350.1.13.10 it y of [facility] 4.2.7.2.[id number] [facility] 019 Branch 2021-03-10 2021-03-10 Outpatient Sami SHEFFIELD [facility] [id number] Univers 14:45:00 14:51:40 LEXIE ity [facility] 2021-03-10 2021-03-10 Laboratory Only, Ang Db Test [facility] 1.2.8 40.114 [id number] Univers 14:29:53 14:44:53 Only Unknown, Attending HEALTH 350.1.13.10 ity of [place] 4.2.7.2.686 Quang as MARINA?BLEA [phone] [address] MEDICAL OFF[facility]ILDING 2021-03-10 2021-03-10 Orders Doctor VERONIQUE 1.2.840.114 [id number] Univers 00:00:00 00:00:00 Only Unassigned, GONZALO 350.1.13.10 ity of [place] [facility] 4.2.7.2.[id number] [facility] [address] 2021-02-18 2021-02-20 [facility] Sharita Suresh 1.2.840.1 [id number] Methodi 15:45:00 14:08:00 Encounter Jeremy Sandoval 49150.1.[address] 3.430.2.7 Hospit a .3.202030 l .8 2021-02-03 2021-02-04 Emergency X [facility] [id number] Univers 21:10:00 03:21:00 GARTH ity [facility] 2020-10-21 2020-10-27 Inpatient [facility] [id number] [place] 00:00:00 00:00:[address] BEBETO [address] 2020-10-06 2020-10-06 Transition Jocelyne Taylor 1.2.840.114 [id number] [id number] Univers 00:00:00 00:00:00 of Care Madiha Sotelo 350.1.13.10 i ty of [place].[address] [id number] [facility] [address] 2020-09-28 2020-10-03 Hospital Rene Evans [facility] 1.2.840. 114 [id number] Univers 22:23:00 13:05:00 Encounter Shaina Pinto 350.1.13.10 ity [place].2.[place] [id number] [facility] 081 Branch 2020-09-28 2020-09-28 Orders Doctor VERONIQUE 1.2.840.[id number] [place] [address] 00:00:00 00:00:00 Only Unassigned, GONZALO 350.1.13.10 ity of [place] [facility] 4.2.7.2.[id number] [facility] 00[address] 2020-09-09 2020-09-12 Inpatient NAKIA CRUZ [facility] 064 [id number] [place] 00:00:00 00:00:00 462 Method i 2020-08-08 2020-08-08 Outpatient Sami GERMAN, [facility] [id number] Univers 15:40:00 15:40:00 TERRI [facility] 2020-07-11 2020-07-11 Outpatient [facility] [id number] Univers 15:40:00 [facility]:40[facility] 2020-06-22 Inpatient NAKIA CRUZ [facility] [id number] [place] 00:00:00 00:00:00 836 Method i 2020-03-19 2020-03-23 Inpatient JAIME [facility] [id number] [place] 00:00:00 00:00:00 JEREMY 742 Method i 2020-03-14 2020-03-18 Inpatient JAIME [facility] [id number] [place] 00:00:00 00:00:00 JEREMY 157 Method i 2020-02-13 2020-02-13 Laboratory Lab, Adc Fam Pob I [facility] 1.2. [id number] Univers 10:22:10 10:42:10 Only [facility] [id number] ity of [place] [id number] [place] as Professio [id number] [place] [address] [facility] 2020-02-13 2020-02-13 Laboratory Lab, [facility] [id number] 10:22:10 10:42:10 Only Fam Pob I Health [id number] [place] [id number] Professio [id number] nal 044 [address] [facility] 2019-09-28 2019-09-28 Outpatient [facility] [id number] Common 09:00:00 09:00:00 [facility] 2019-09-18 2019-09-18 Outpatient Brazluciana Viverost [id number] Common 09:30:00 09:30:00 t [facility] 2019-08-14 2019-08-14 Transition Jocelyne Alexandra [id number] Univers 00:00:00 00:00:00 of Care Jovanny Coopery 350.1.13.10 [place] [id number] [address] 2019-08-14 2019-08-14 Transition Jocelyne Alexandra 1.2.840.114 [id number] 00:00:00 00:00:00 of Care Jovanny Coopery 350.1.13.10 [place] 4.2.7.2.686 [phone] [facility] 2019-08-10 2019-08-11 Inpatient U MILLIE MTSASHA SHRUTI [id number] Univers 02:55:00 16:09:00 ADNAN ity of [facility] 2019-08-10 2019-08-11 [facility] Millie MTSASHA [id number] [id number] Univers 02:55:00 16:09:00 Encounter Shaina Whitt 350.1.13.10 ity of [place] 4.2.7.2.686 [facility] [id number] [facility] [address] 2019-08-10 2019-08-11 [facility] 1.2.911.282 [id number] 02:55:00 16:09:00 Encounter Shaina Whitt 350.1.13.10 [place] 4.2.7.2.686 [place] [id number] [id number] Results Test Description Test Time Test Comments Results Result Comments Source SARS-CoV-2 (COVID-19) RNA [Presence] in Respiratory sp ecimen by 2022-05-27 18:27:06 HELENA with probe detection Test Item Value Reference Range Interpretation Comme nts SARS-CoV-2 (COVID-19) RNA [Presence] in Respiratory specimen by Not detected HELENA with probe detection (test code = 09869-8) 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 employed in a healthcare setting (test code = Un known 38729-8) Whether the patient has symptoms related to condition of interest U nknown (test code = 97462-6) Whether the patient was hospitalized for condition of interest Unkn own (test code = 37282-0) Whether the patient was admitted to intensive care unit (ICU) for U nknown condition of interest (test code = 65614-8) Whether patient resides in a congregate care setting (test code = U nknown 35872-3) status (test code = 56339-8) Unknown Date and time of symptom onset (test code = 04518-2) Unknown HEMINGWAY ANABELLA YORS-CoV-2 (COVID-19) RNA [Presence] in Respiratory specimen by HELENA with probe [id number] 22:34:07 Test Item Value Reference Range Interpretation Comments SARS-CoV-2 (COVID-19) RNA Not detected [Presence] in Respiratory specimen by HELENA with probe detection (test code = 75913-8) 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 employed in a Unknown healthcare setting (test code = 69648-0) Whether the patient has symptoms Unknown related to condition of interest (test code = 82354-0) Whether the patient was Unknown hospitalized for condition of interest (test code = 91598-4) Whether the patient was admitted Unknown to intensive care unit (ICU) for condition of interest (test code = 39273-6) Whether patient resides in a Unknown congregate care setting (test code = 15581-2) status (test code = Unknown 20539-9) Date and time of symptom onset Unknown (test code = 44381-3) BROOKE KYLE WESTInfluenza virus A and B [id number] 18:42:46 Test Item Value Reference Range Interpretation Comments SARS-CoV-2 (COVID-19) RNA Not detected [Presence] in Respiratory specimen by HELENA with probe detection (test code = 25936-8) Whether patient resides in a No congregate care setting (test code = 88223-5) Date and time of symptom onset Unknown (test code = 66862-3) Whether the patient was No hospitalized for condition of interest (test code = 55856-1) Whether the patient was admitted No to intensive care unit (ICU) for condition of interest (test code = 29766-9) 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 employed in a No healthcare setting (test code = 95989-5) Whether the patient has symptoms No related to condition of interest (test code = 82280-8) status (test code = No 68334-7) BROOKE KYLE [facility] with Oikpoenmisfr1353-63-62 03:42:09 Test Item Value Reference Range Interpretation Comments WBC (test code = See_Comment L [Automated 6690-2) message] The sy stem which generated this result transmitted reference range : 4.30 - 11.10 10*3/?L. The reference range was not used to interpret this result as normal/abnormal . RBC (test code = See_Comment L [Automated 269-8) message] The sy stem which generated this result transmitted reference range : 3.93 - 5.25 10*6/?L. The reference range was not used to interpret this result as normal/abnormal . HGB (test code = 9.2 g/dL 11.6-15.0 L 718-7) HCT (test code = 30.7 % 35.7-45.2 L 4544-3) MCV (test code = 85.0 fL 80.6-95.5 787-2) MCH (test code = 25.5 pg 25.9-32.8 L 785-6) MCHC (test code = 30.0 g/dL 31.6-35.1 L 786-4) RDW-SD (test code = 52.8 fL 39.0-49.9 H 08965-6) RDW-CV (test code = 17.0 % 12.0-15.5 H 788-0) PLT (test code = See_Comment L [Automated 777-3) message] The sy stem which generated this result transmitted reference range : 166 - 358 10*3/ ?L. The reference r davi was not used to interpret this result as normal/abnormal . MPV (test code = 9.8 fL 9.5-12.9 37707-1) IPF % (test code = 2.5 % 1.3-7.7 Platelet count [id number]) measured by fluorescence method. NRBC/100 WBC (test See_Comment [Automat ed code = 2375131502) message] The system which generated this result transmitted reference range : 0.0 - 10.0 /100 WBCs. The refer ence range was not u sed to interpret th is result as normal/abnormal . NRBC x10^3 (test code See_Comment [Auto mated = 0045722241) message] The s ystem which generated this result transmitted reference range : 10*3/?L. The reference range was not used to interpret this result as normal/abnormal . GRAN MAT (NEUT) % 63.3 % (test code = 770-8) IMM GRAN % (test code 0.30 % = 9650001499) LYMPH % (test code = 18.7 % 736-9) MONO % (test code = 14.5 % 5905-5) EOS % (test code = 2.6 % 713-8) BASO % (test code = 0.6 % 706-2) GRAN MAT x10^3(ANC) 1.96 10*3/uL 1.88-7.09 (test code = 8237628634) IMM GRAN x10^3 (test 0.00-0.06 code = 4220579896) LYMPH x10^3 (test code 0.58 10*3/uL 1.32-3.29 L = 731-0) MONO x10^3 (test code 0.45 10*3/uL 0.33-0.92 = 742-7) EOS x10^3 (test code = 0.08 10*3/uL 0.03-0.39 711-2) BASO x10^3 (test code 0.01-0.07 = 704-7) BASO STIPPLING (test Present A code = 703-9) PLT ESTIMATE (test Decreased Normal A code = 9317-9) Lab Interpretation Abnormal (test code = 37958-4) [facility] [id number] 03:26:02 Test Item Value Reference Interpretation Comments Range TROPONIN I (test 0.003 ng/mL See_Comment [Automated code = 1377277356) message] The system which generated this result [...] biotin. Lab Interpretation Normal (test code = 13516-5) [facility] [id number] 03:23:01 Test Item Value Reference Range Interpretation Comments NT-proBNP (test code 36 pg/mL See_Comment [Autom ated = 3075559539) message] The system which generated this result transmitted reference range : <=125. The reference range was not used to interpret this result as normal/abnormal . SNOW (test code = SNOW) Biotin has been reported to cause a negative bias, interpret results relative to patient's use of biotin. Lab Interpretation Normal (test code = 00493-2) [facility] Metabolic Panel (NA, K, CL, CO2, GLUCOSE, BUN, CREATININE, CA)2022-04-16 03:14:42 Test Item Value Reference Range Interpretation Comments NA (test code = 138 mmol/L 135-145 9381693261) K (test code = 4.8 mmol/L 3.5-5.0 3156041899) CL (test code = 110 mmol/L 98-108 H 9668764700) CO2 TOTAL (test code = 22 mmol/L 23-31 L 8431079447) AGAP (test code = 2-16 5651491495) BUN (test code = 15 mg/dL 7-23 7757380218) GLUCOSE (test code = 90 mg/dL 70-110 0636835353) CREATININE (test code = 0.49 mg/dL 0.50-1.04 L 5830564705) CALCIUM (test code = 7.9 mg/dL 8.6-10.6 L 6775689315) eGFR (test code = mL/min/1.73m2 0089188685) SNOW (test code = SNOW) Association of [...] tests). Lab Interpretation Abnormal (test code = 63443-5) [facility] (ALB, T.PRO, BILI T, BU/BC, ALT, AST, ALK PHOS)2022-04-16 03:14:22 Test Item Value Reference Range Interpretation Comments TOTAL BILI (test code = 1368556916) 1.5 mg/dL 0.1-1.1 H BILI UNCON (test code = 1125789289) 1.2 mg/dL 0.1-1.1 H BILI CONJ (test code = 0461119440) 0.0 mg/dL 0.0-0.3 T PROTEIN (test code = 3597417226) 6.5 g/dL 6.3-8.2 ALBUMIN (test code = 5831825005) 3.4 g/dL 3.5-5.0 L ALK PHOS (test code = 7177770068) 162 U/L 34-122 H ALTv (test code = 1742-6) 50 U/L 5-35 H AST(SGOT) (test code = 5687824236) 64 U/L 13-40 H Lab Interpretation (test code = Abnormal 14603-9) [facility] WITH [id number] 02:57:34 Test Item Value Reference Range Interpretation Comments WBC (test code = See_Comment L [Automated 2990-2) message] The sy stem which generated this result transmitted reference range : 4.30 - 11.10 10*3/?L. The reference range was not used to interpret this result as normal/abnormal . RBC (test code = See_Comment L [Automated 9-8) message] The sy stem which generated this [...] (test code = 52.2 fL 39.0-49.9 H 12375-1) RDW-CV (test code = 16.7 % 12.0-15.5 H 788-0) PLT (test code = See_Comment L [Automated 777-3) message] The sy stem which generated this result transmitted reference range : 166 - 358 10*3/ ?L. The reference r davi was not used to interpret this result as normal/abnormal . MPV (test code = 11.4 fL 9.5-12.9 00798-0) NRBC/100 WBC (test See_Comment [Automat ed code = 3138728095) message] The system which generated this result transmitted reference range : 0.0 - 10.0 /100 WBCs. The refer ence range was not u sed to interpret th is result as normal/abnormal . NRBC x10^3 (test code See_Comment [Auto mated = 0521664211) message] The s ystem which generated this result transmitted reference range : 10*3/?L. The reference range was not used to interpret this result as normal/abnormal . GRAN MAT (NEUT) % 62.2 % (test code = 770-8) IMM GRAN % (test code 0.80 % = 3050175153) LYMPH % (test code = 20.2 % 736-9) MONO % (test code = 14.7 % 5905-5) EOS % (test code = 1.7 % 713-8) BASO % (test code = 0.4 % 706-2) GRAN MAT x10^3(ANC) 1.48 10*3/uL 1.88-7.09 L (test code = 9327054477) IMM GRAN x10^3 (test 0.00-0.06 code = 6550806971) LYMPH x10^3 (test code 0.48 10*3/uL 1.32-3.29 L = 731-0) MONO x10^3 (test code 0.35 10*3/uL 0.33-0.92 = 742-7) EOS x10^3 (test code = 0.04 10*3/uL 0.03-0.39 711-2) BASO x10^3 (test code 0.01-0.07 = 704-7) PLT ESTIMATE (test Decreased Normal A code = 9317-9) Lab Interpretation Abnormal (test code = 06494-4) [facility] / [id number] 02:35:10 Test Item Value Reference Range Interpretation Comments PROTIME PATIENT (test See_Comment H [Auto mated message] code = 5964-2) The system [employer] generated this result transmitted ref erence range: 12.0 - 1 4.7 Seconds. The reference range was not used to int erpret this result as normal/abnormal . INR (test code = 6301-6) Nor mal INR <1.1; Warfarin Therap eutic range 2.0 to 3. 0 or 2.5 to 3.5, dep ending upon the indica tions. Lab Interpretation (test Abnormal code = 21536-5) [facility] MET[facility]OLIC PANEL (44259)2022-04-10 02:34:50 Test Item Value Reference Range Interpretation Comments NA (test code = 140 mmol/L 135-145 1325804272) K (test code = 4.4 mmol/L 3.5-5.0 0831307122) CL (test code = 111 mmol/L 98-108 H 9326094663) CO2 TOTAL (test code = 23 mmol/L 23-31 8036906515) AGAP (test code = 2-16 2444945766) BUN (test code = 13 mg/dL 7-23 3913818510) GLUCOSE (test code = 86 mg/dL 70-110 1523319431) CREATININE (test code = 0.62 mg/dL 0.50-1.04 7264289552) TOTAL BILI (test code = 1.6 mg/dL 0.1-1.1 H 9826585963) CALCIUM (test code = 7.6 mg/dL 8.6-10.6 L 0061707212) T PROTEIN (test code = 6.3 g/dL 6.3-8.2 2107547155) ALBUMIN (test code = 3.3 g/dL 3.5-5.0 L 9735175663) ALK PHOS (test code = 160 U/L 34-122 H 9155387419) ALTv (test code = 46 U/L 5-35 H 1742-6) AST(SGOT) (test code = 58 U/L 13-40 H 7493638312) eGFR (test code = mL/min/1.73m2 1230947682) SNOW (test code = SNOW) Association of [...] tests). Lab Interpretation Abnormal (test code = 71242-6) [facility]2022-[facility]-31 02:34:50 Test Item Value Reference Range Interpretation Comments MAGNESIUM (test code = 0972193735) 1.8 mg/dL 1.7-2.4 Lab Interpretation (test code = Normal 44916-1) [facility]AT[facility] [id number] 02:34:29 Test Item Value Reference Range Interpretation Comments CK (test code = 5855561002) 105 U/L 33-194 Lab Interpretation (test code = Normal 45485-2) [facility], [id number] 02:33:54 Test Item Value Reference Range Interpretation Comments AMMONIA (test code = 2950104568) 90 umol/L 9-33 H Lab Interpretation (test code = Abnormal 02669-2) [facility] zhgsvtt6778-66-15 09:39:00 Test Item Value Reference Range Interpretation Comments POC glucose (test code = 107 mg/dL 65-99 H Ope rator Name: Aris 54868-4) SaraDevice ID: [id number] able: TM Notified shampoo person Interpretation (test Abnormal code = 85943-1) [facility]2022-11-19 09:39:00 Test Item Value Reference Range Interpretation Comments POC glucose (test code = 107 mg/dL 65-99 H Ope rator Name: Aris 32457-6) SaraDevice ID: [id number] able: TM Notified shampoo person Interpretation (test Abnormal code = 20176-4) [facility]2022-11-19 09:39:00 Test Item Value Reference Range Interpretation Comments POC glucose (test code = 107 mg/dL 65-99 H Ope rator Name: Aris 16693-5) SaraDevice ID: [id number] able: TM Notified shampoo person Interpretation (test Abnormal code = 44817-7) [facility]2022-11-19 09:39:00 Test Item Value Reference Range Interpretation Comments POC glucose (test code = 107 mg/dL 65-99 H Ope rator Name: Aris 26397-1) SaraDevice ID: [id number] able: TM Notified shampoo person Interpretation (test Abnormal code = 36901-2) [place] [address] nblx3910-57-27 02:51:50 Test Item Value Reference Range Interpretation Comments Ventricular rate (test code = 253) Atrial rate (test code = 255) CA interval (test code = 266) QRSD interval (test code = 260) QT interval (test code = 264) QTC interval (test code = 265) P axis 1 (test code = 267) QRS axis 1 (test code = 268) T wave axis (test code = 270) EKG impression (test Normal sinus code = 273) rhythm-Right bundle branch block-Abnormal ECG-- [address]2022-11-18 02:51:50 Test Item Value Reference Range Interpretation Comments Ventricular rate (test code = 253) Atrial rate (test code = 255) CA interval (test code = 266) QRSD interval (test code = 260) QT interval (test code = 264) QTC interval (test code = 265) P axis 1 (test code = 267) QRS axis 1 (test code = 268) T wave axis (test code = 270) EKG impression (test Normal sinus code = 273) rhythm-Right bundle branch block-Abnormal ECG-- [address]2022-11-18 02:51:50 Test Item Value Reference Range Interpretation Comments Ventricular rate (test code = 253) Atrial rate (test code = 255) CA interval (test code = 266) QRSD interval (test code = 260) QT interval (test code = 264) QTC interval (test code = 265) P axis 1 (test code = 267) QRS axis 1 (test code = 268) T wave axis (test code = 270) EKG impression (test Normal sinus code = 273) rhythm-Right bundle branch block-Abnormal ECG-- [address]2022-11-18 02:51:50 Test Item Value Reference Range Interpretation Comments Ventricular rate (test code = 253) Atrial rate (test code = 255) CA interval (test code = 266) QRSD interval (test code = 260) QT interval (test code = 264) QTC interval (test code = 265) P axis 1 (test code = 267) QRS axis 1 (test code = 268) T wave axis (test code = 270) EKG impression (test Normal sinus code = 273) rhythm-Right bundle branch block-Abnormal ECG-- [facility] ED Preliminary Interpretation - Not an [id number] 20:37:40 Test Item Value Reference Range Interpretation Comments SNOW (test code = SNOW) Stevo Hoskins DO 02/28/2022 12:23 [facility] ED Preliminary Interpretation - Not an OrderPerformed by: Stevo Hoskins, DOAuthorized by: Stevo Hoskins DO ECG reviewed by ED Physician in the absence of a elevator runner: yes Interpretation: Interpretation: abnormal Rate: ECG rate: 70 ECG rate assessment: normal Rhythm: Rhythm: sinus rhythm Ectopy: Ectopy: none QRS: QRS axis: Normal QRS intervals: WideConduction: Conduction: abnormal Abnormal conduction: complete RBBB ST segments: ST segments: NormalT waves: T waves: non-specific Lab Interpretation Abnormal (test code = 71130-2) [facility] Preliminary Interpretation - Not an [id number] 20:37:40 Test Item Value Reference Range Interpretation Comments SNOW (test code = SNOW) Stevo Hoskins DO 02/28/2022 12:23 [facility] ED Preliminary Interpretation - Not an OrderPerformed by: Stevo Hoskins, DOAuthorized by: Stevo Hoskins DO ECG reviewed by ED Physician in the absence of a elevator runner: yes Interpretation: Interpretation: abnormal Rate: ECG rate: 70 ECG rate assessment: normal Rhythm: Rhythm: sinus rhythm Ectopy: Ectopy: none QRS: QRS axis: Normal QRS intervals: WideConduction: Conduction: abnormal Abnormal conduction: complete RBBB ST segments: ST segments: NormalT waves: T waves: non-specific Lab Interpretation Abnormal (test code = 44603-7) [facility] ED Preliminary Interpretation - Not an [id number] 20:37:40 Test Item Value Reference Range Interpretation Comments SNOW (test code = SNOW) Stevo Hoskins DO 02/28/2022 12:23 [facility] ED Preliminary Interpretation - Not an OrderPerformed by: Stevo Hoskins, DOAuthorized by: Stevo Hoskins DO ECG reviewed by ED Physician in the absence of a elevator runner: yes Interpretation: Interpretation: abnormal Rate: ECG rate: 70 ECG rate assessment: normal Rhythm: Rhythm: sinus rhythm Ectopy: Ectopy: none QRS: QRS axis: Normal QRS intervals: WideConduction: Conduction: abnormal Abnormal conduction: complete RBBB ST segments: ST segments: NormalT waves: T waves: non-specific Lab Interpretation Abnormal (test code = 43167-6) [facility] ED Preliminary Interpretation - Not an [id number] 20:37:40 Test Item Value Reference Range Interpretation Comments SNOW (test code = SNOW) Stevo Hoskins DO 02/28/2022 12:23 [facility] ED Preliminary Interpretation - Not an OrderPerformed by: Stevo Hoskins DOAuthorized by: Stevo Hoskins DO ECG reviewed by ED Physician in the absence of a elevator runner: yes Interpretation: Interpretation: abnormal Rate: ECG rate: 70 ECG rate assessment: normal Rhythm: Rhythm: sinus rhythm Ectopy: Ectopy: none QRS: QRS axis: Normal QRS intervals: WideConduction: Conduction: abnormal Abnormal conduction: complete RBBB ST segments: ST segments: NormalT waves: T waves: non-specific Lab Interpretation Abnormal (test code = 03788-8) [facility] WgmcwzlgAYYO-WkY-6 (COVID-19) RNA [Presence] in Respiratory specimen by HELENA with probe [id number] 18:28:31 Test Item Value Reference Range Interpretation Comments SARS-CoV-2 (COVID-19) RNA Not detected [Presence] in Respiratory specimen by HELENA with probe detection (test code = 37749-3) 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 employed in a Unknown healthcare setting (test code = 92992-2) Whether the patient has symptoms Unknown related to condition of interest (test code = 25509-6) Whether the patient was Unknown hospitalized for condition of interest (test code = 89751-0) Whether the patient was admitted Unknown to intensive care unit (ICU) for condition of interest (test code = 63145-6) Whether patient resides in a Unknown congregate care setting (test code = 02995-7) status (test code = Unknown 70220-3) Date and time of symptom onset Unknown (test code = 67787-8) BROOKE KYLE [facility] WITH [id number] 21:35:39 Test Item Value Reference Range Interpretation [...] (test code = 53.7 fL 39.0-49.9 H 30786-2) RDW-CV (test code = 17.0 % 12.0-15.5 H 788-0) PLT (test code = See_Comment L [Automated 777-3) message] The sy stem which generated this result transmitted reference range : 166 - 358 10*3/ ?L. The reference r davi was not used to interpret this result as normal/abnormal . MPV (test code = 9.8 fL 9.5-12.9 08887-7) IPF % (test code = 2.2 % 1.3-7.7 Platelet count 2668904329) measured by fluorescence method. NRBC/100 WBC (test See_Comment [Automat ed code = 9142278656) message] The system which generated this result transmitted reference range : 0.0 - 10.0 /100 WBCs. The refer ence range was not u sed to interpret th is result as normal/abnormal . NRBC x10^3 (test code See_Comment [Auto mated = 0593106352) message] The s ystem which generated this result transmitted reference range : 10*3/?L. The reference range was not used to interpret this result as normal/abnormal . SEG % (test code = 60 % 33-76 22552-8) BAND % (test code = 3 % 0-1 H 97008-1) LYMPH % (test code = 23 % 14-54 14694-6) MONO % (test code = 12 % 0-4 H 47589-4) EOS % (test code = 2 % 0-3 83857-0) ANC (test code = 1.38 10*3/uL 1.88-7.09 L 753-4) PLT ESTIMATE (test Decreased Normal A code = 9317-9) Lab Interpretation Abnormal (test code = 18078-0) [facility]. METABOLIC PANEL (02860)2022-02-15 20:44:39 Test Item Value Reference Range Interpretation Comments NA (test code = 137 mmol/L 135-145 4704719350) K (test code = 3.8 mmol/L 3.5-5.0 4074373431) CL (test code = 107 mmol/L 98-108 7622175122) CO2 TOTAL (test code = 25 mmol/L 23-31 4039449578) AGAP (test code = 2-16 5725655603) BUN (test code = 11 mg/dL 7-23 1054637281) GLUCOSE (test code = 103 mg/dL 70-110 8245137620) CREATININE (test code = 0.53 mg/dL 0.50-1.04 8991299546) TOTAL BILI (test code = 1.9 mg/dL 0.1-1.1 H 1489918476) CALCIUM (test code = 8.2 mg/dL 8.6-10.6 L 0357634676) T PROTEIN (test code = 6.4 g/dL 6.3-8.2 7618559477) ALBUMIN (test code = 3.4 g/dL 3.5-5.0 L 2254352558) ALK PHOS (test code = 146 U/L 34-122 H 3516700982) ALTv (test code = 40 U/L 5-35 H 1742-6) AST(SGOT) (test code = 52 U/L 13-40 H 5429728707) eGFR (test code = mL/min/1.73m2 2210780642) SNOW (test code = SNOW) Association of [...] tests). Lab Interpretation Abnormal (test code = 64209-3) [facility] 20:44:19 Test Item Value Reference Range Interpretation Comments LIPASE (test code = 4705174230) 298 U/L 0-220 H Lab Interpretation (test code = Abnormal 92720-3) [facility] [id number] 03:08:00 Test Item Value Reference Range Interpretation Comments Urine culture (test SEE COMMENT Bacteriu bartolo screen code = 7382094) negative. [facility] cgxcefa3036-57-35 03:08:00 Test Item Value Reference Range Interpretation Comments Urine culture (test SEE COMMENT Bacteriu bartolo screen code = 9892733) negative. [facility] [id number] 03:08:00 Test Item Value Reference Range Interpretation Comments Urine culture (test SEE COMMENT Bacteriu bartolo screen code = 6820955) [facility] rfd[facility]ue0898[facility]-98 03:08:00 Test Item Value Reference Range Interpretation Comments Urine culture (test SEE COMMENT Bacteriu bartolo screen code = 3702831) [facility]. [facility] RNA [Presence] in Respiratory specimen by HELENA with probe [id number] 02:16:27 Test Item Value Reference Range Interpretation Comments SARS-CoV-2 (COVID-19) RNA Not detected [Presence] in Respiratory specimen by HELENA with probe detection (test code = 20910-4) 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 employed in a Unknown healthcare setting (test code = 39044-0) Whether the patient has symptoms Unknown related to condition of interest (test code = 03725-1) Whether the patient was Unknown hospitalized for condition of interest (test code = 41037-5) Whether the patient was admitted Unknown to intensive care unit (ICU) for condition of interest (test code = 03005-3) Whether patient resides in a Unknown congregate care setting (test code = 63517-3) status (test code = Unknown 04585-0) Date and time of symptom onset Unknown (test code = 18586-0) [facility] [id number] 22:22:49 Test Item Value Reference Range Interpretation Comments Case number (test code = [id number]) Surgical pathology See link below for report (test code = PDF Lab Report 2255) Result status (test code This is Final Report = [id number]) for [id number] [facility][1] pathology [id number] 22:22:49 Test Item Value Reference Range Interpretation Comments Case number (test code = [id number]) Surgical pathology See link below for report (test code = PDF Lab Report 2255) Result status (test code This is Final Report = [id number]) for [id number] pathology [id number] 22:22:49 Test Item Value Reference Range Interpretation Comments Case number (test code = [id number]) Surgical pathology See link below for report (test code = PDF Lab Report 2255) Result status (test code This is Final Report = [id number]) for [id number] pathology [id number] 22:22:49 Test Item Value Reference Range Interpretation Comments Case number (test code = [id number]) Surgical pathology See link below for report (test code = PDF Lab Report 2255) Result status (test code This is Final Report = [id number]) for [id number] [facility][1] pathology [id number] 22:22:49 Test Item Value Reference Range Interpretation Comments Case number (test code = [id number]) Surgical pathology See link below for report (test code = PDF Lab Report 2255) Result status (test code This is Final Report = [id number]) for [id number] [facility][1] pathology [id number] 22:22:49 Test Item Value Reference Range Interpretation Comments Case number (test code = [id number]) Surgical pathology See link below for report (test code = PDF Lab Report 2255) Result status (test code This is Final Report = [id number]) for [id number] [facility] [id number] 17:57:00 Test Item Value Reference Range Interpretation Comments POC glucose (test code = 121 mg/dL 65-99 H Ope rator Name: [id number]) Rustam Elaine vice ID: [id number] able: [facility] Notified shampoo person Interpretation (test Abnormal code = 33110-6) [facility] [id number] 17:57:00 Test Item Value Reference Range Interpretation Comments POC glucose (test code = 121 mg/dL 65-99 H Ope rator Name: 30354-0) [place] Elaine vice ID: [id number] able: [facility] Notified shampoo person Interpretation (test Abnormal code = 97121-0) [facility] [id number] 11:53:00 Test Item Value Reference Range Interpretation Comments Urine culture (test SEE COMMENT Bacteriu bartolo screen code = 4567067) negative. [facility] [id number] 11:53:00 Test Item Value Reference Range Interpretation Comments Urine culture (test SEE COMMENT Bacteriu bartolo screen code = 1627793) [facility]. [facility] [Presence] in Respiratory specimen by HELENA with probe [id number] 08:30:51 Test Item Value Reference Range Interpretation Comments SARS-CoV-2 (COVID-19) RNA Not detected [Presence] in Respiratory specimen by HELENA with probe detection (test code = 99473-2) 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 employed in a Unknown healthcare setting (test code = 97406-3) Whether the patient has symptoms Unknown related to condition of interest (test code = 98537-9) Whether the patient was Unknown hospitalized for condition of interest (test code = 93745-4) Whether the patient was admitted Unknown to intensive care unit (ICU) for condition of interest (test code = 02065-1) Whether patient resides in a Unknown congregate care setting (test code = 40028-3) status (test code = Unknown 63322-5) Date and time of symptom onset Unknown (test code = 64466-5) [address]2022-09-03 12:19:45 Test Item Value Reference Range Interpretation Comments Ventricular rate (test code = 253) Atrial rate (test code = 255) CA interval (test code = 266) QRSD interval [...] of 26-NOV-2021 19:29,-No significant change was found- [address]2022-09-03 12:19:45 Test Item Value Reference Range Interpretation Comments Ventricular rate (test code = 253) Atrial rate (test code = 255) CA interval (test code = 266) QRSD interval [...] 19:29,-No significant change was found- [facility] 12 [id number] 12:19:45 Test Item Value Reference Range Interpretation Comments Ventricular rate (test code = 253) Atrial rate (test code = 255) CA interval (test code = 266) QRSD interval [...] 19:29,-No significant change was found- [facility] ED Preliminary Interpretation - Not an [id number] 05:33:45 Test Item Value Reference Range Interpretation Comments SNOW (test code = SNOW) Stevo Hoskins DO 12/13/2021 12:08 [facility] ED Preliminary Interpretation - Not an OrderPerformed by: Stevo Hoskins DOAuthorized by: Stevo Hoskins DO ECG reviewed by ED Physician in the absence of a elevator runner: yes Previous ECG: Previous ECG: UnavailableInterpretat ion: Interpretation: abnormal Rate: ECG rate: 63 ECG rate assessment: normal Rhythm: Rhythm: sinus rhythm Ectopy: Ectopy: none QRS: QRS axis: Normal QRS intervals: NormalConduction: Conduction: abnormal Abnormal conduction: complete RBBB ST segments: ST segments: NormalT waves: T waves: non-specific Lab Interpretation Abnormal (test code = 25880-0) [facility] ED Preliminary Interpretation - Not an [id number] 05:33:45 Test Item Value Reference Range Interpretation Comments SNOW (test code = SNOW) Stevo Hoskins DO 12/13/2021 12:08 [facility] ED Preliminary Interpretation - Not an OrderPerformed by: Stevo Hoskins DOAuthorized by: Stevo Hoskins DO ECG reviewed by ED Physician in the absence of a elevator runner: yes Previous ECG: Previous ECG: UnavailableInterpretat ion: Interpretation: abnormal Rate: ECG rate: 63 ECG rate assessment: normal Rhythm: Rhythm: sinus rhythm Ectopy: Ectopy: none QRS: QRS axis: Normal QRS intervals: NormalConduction: Conduction: abnormal Abnormal conduction: complete RBBB ST segments: ST segments: NormalT waves: T waves: non-specific Lab Interpretation Abnormal (test code = 06441-2) [facility] ED Preliminary Interpretation - Not an [id number] 05:33:45 Test Item Value Reference Range Interpretation Comments SNOW (test code = SNOW) Stevo Hoskins DO 12/13/2021 12:08 [facility] ED Preliminary Interpretation - Not an OrderPerformed by: Stevo Hoskins DOAuthorized by: Stevo Hoskins DO ECG reviewed by ED Physician in the absence of a elevator runner: yes Previous ECG: Previous ECG: UnavailableInterpretat ion: Interpretation: abnormal Rate: ECG rate: 63 ECG rate assessment: normal Rhythm: Rhythm: sinus rhythm Ectopy: Ectopy: none QRS: QRS axis: Normal QRS intervals: NormalConduction: Conduction: abnormal Abnormal conduction: complete RBBB ST segments: ST segments: NormalT waves: T waves: non-specific Lab Interpretation Abnormal (test code = 80306-6) [id number] 05:22:00 Test Item Value Reference Range Interpretation Comments Urine culture (test SEE COMMENT Bacteriu bartolo screen code = 9349132) negative. [facility] RNA [Presence] in Respiratory specimen by HELENA with probe [id number] 02:31:14 Test Item Value Reference Range Interpretation Comments SARS-CoV-2 (COVID-19) RNA Not detected [Presence] in Respiratory specimen by HELENA with probe detection (test code = 54029-7) 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 employed in a Unknown healthcare setting (test code = 73494-7) Whether the patient has symptoms Unknown related to condition of interest (test code = 95742-5) Whether the patient was Unknown hospitalized for condition of interest (test code = 67727-2) Whether the patient was admitted Unknown to intensive care unit (ICU) for condition of interest (test code = 67558-2) Whether patient resides in a Unknown congregate care setting (test code = 96989-1) status (test code = Unknown 94394-3) Date and time of symptom onset Unknown (test code = 48587-7) [facility] 12 [id number] 13:24:41 Test Item Value Reference Range Interpretation Comments Ventricular rate (test code = 253) Atrial rate (test code = 255) CA interval (test code = 266) QRSD interval (test code = 260) QT interval (test code = 264) QTC interval (test code = 265) P axis 1 (test code = 267) QRS axis 1 (test code = 268) T wave axis (test code = 270) EKG impression (test code Normal sinus = 273) rhythm-Right bundle branch block- [facility] ED Preliminary Interpretation - Not an [id number] 00:04:12 Test Item Value Reference Range Interpretation Comments SNOW (test code = SNOW) Jefferson Skelton MD 12/04/2021 11:12 [facility] ED Preliminary Interpretation - Not an OrderPerformed by: Jefferson Skelton MDAuthorized by: Jefferson Skelton MD ECG reviewed by ED Physician in the absence of a elevator runner: yes Interpretation: Interpretation: abnormal Rate: ECG rate: 70 ECG rate assessment: normal Rhythm: Rhythm: sinus rhythm QRS: QRS axis: Normal QRS intervals: WideConduction: Conduction: abnormal Abnormal conduction: complete RBBB ST segments: ST segments: NormalOther findings: Other findings: prolonged qTc interval Lab Interpretation Abnormal (test code = 01971-4) [facility] [id number] 02:26:00 Test Item Value Reference Range Interpretation Comments Urine culture (test SEE COMMENT Bacteriu bartolo screen code = 1780551) negative. [facility] RNA [Presence] in Respiratory specimen by HELENA with probe [id number] 00:33:54 Test Item Value Reference Range Interpretation Comments SARS-CoV-2 (COVID-19) RNA Not detected [Presence] in Respiratory specimen by HELENA with probe detection (test code = 76456-9) 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 employed in a Unknown healthcare setting (test code = 00765-6) Whether the patient has symptoms Unknown related to condition of interest (test code = 22531-2) Whether the patient was Unknown hospitalized for condition of interest (test code = 64522-9) Whether the patient was admitted Unknown to intensive care unit (ICU) for condition of interest (test code = 04482-0) Whether patient resides in a Unknown congregate care setting (test code = 00941-5) status (test code = Unknown 04336-4) Date and time of symptom onset Unknown (test code = 78197-8) BROOKE SCHWARTZ2021-06-25 09:34:08 Test Item Value Reference Range Interpretation Comments MAGNESIUM (test code = 5227075140) 1.4 mg/dL 1.7-2.4 L Lab Interpretation (test code = Abnormal 82413-6) [facility] (99259)2020-10-03 09:33:48 Test Item Value Reference Range Interpretation Comments NA (test code = 136 mmol/L 135-145 1036742415) K (test code = 3.3 mmol/L 3.5-5.0 L 7271437883) CL (test code = 100 mmol/L 98-108 3511253573) CO2 TOTAL (test code = 33 mmol/L 23-31 H 2095982978) AGAP (test code = 2-16 9727629320) BUN (test code = 3 mg/dL 7-23 L 2641106846) GLUCOSE (test code = 95 mg/dL 70-110 7890547894) CREATININE (test code = 0.47 mg/dL 0.50-1.04 L 7859914244) TOTAL BILI (test code = 1.5 mg/dL 0.1-1.1 H 3156706468) CALCIUM (test code = 8.1 mg/dL 8.6-10.6 L 7888211585) T PROTEIN (test code = 5.9 g/dL 6.3-8.2 L 2546484158) ALBUMIN (test code = 2.9 g/dL 3.5-5.0 L 2074172602) ALK PHOS (test code = 115 U/L 34-122 6417902802) ALTv (test code = 24 U/L 5-35 1742-6) AST(SGOT) (test code = 35 U/L 13-40 5367434802) eGFR (test code = mL/min/1.73m2 0261898279) SNOW (test code = SNOW) Association of [...] tests). Lab Interpretation Abnormal (test code = 73937-7) [facility] 09:33:28 Test Item Value Reference Range Interpretation Comments PHOSPHORUS (test code = 4836795417) 2.8 mg/dL 2.5-5.0 Lab Interpretation (test code = Normal 65911-7) [facility] WITH [id number] 09:31:46 Test Item Value Reference Range Interpretation [...] (test code = 53.8 fL 39.0-49.9 H 19439-0) RDW-CV (test code = 19.9 % 12.0-15.5 H 788-0) PLT (test code = See_Comment L [Automated 777-3) message] The sy stem which generated this result transmitted reference range : 166 - 358 10*3/ ?L. The reference r davi was not used to interpret this result as normal/abnormal . MPV (test code = 10.9 fL 9.5-12.9 42630-7) IPF % (test code = 3.6 % 1.3-7.7 Platelet count 6648527067) measured by fluorescence method. NRBC/100 WBC (test See_Comment [Automat ed code = 4227923964) message] The system which generated this result transmitted reference range : 0.0 - 10.0 /100 WBCs. The refer ence range was not u sed to interpret th is result as normal/abnormal . NRBC x10^3 (test code See_Comment [Auto mated = 1059571106) message] The s ystem which generated this result transmitted reference range : 10*3/?L. The reference range was not used to interpret this result as normal/abnormal . GRAN MAT (NEUT) % 68.1 % (test code = 770-8) IMM GRAN % (test code 1.10 % = 9107019390) LYMPH % (test code = 15.5 % 736-9) MONO % (test code = 11.3 % 5905-5) EOS % (test code = 3.4 % 713-8) BASO % (test code = 0.6 % 706-2) GRAN MAT x10^3(ANC) 2.42 10*3/uL 1.88-7.09 (test code = 2005484114) IMM GRAN x10^3 (test 0.04 10*3/uL 0.00-0.06 code = 6054238617) LYMPH x10^3 (test code 0.55 10*3/uL 1.32-3.29 L = 731-0) MONO x10^3 (test code 0.40 10*3/uL 0.33-0.92 = 742-7) EOS x10^3 (test code = 0.12 10*3/uL 0.03-0.39 711-2) BASO x10^3 (test code <0.03 0.01-0.07 = 704-7) Lab Interpretation Abnormal (test code = 78716-6) [facility] WITH [id number] 10:47:09 Test Item Value Reference Range Interpretation [...] (test code = 52.2 fL 39.0-49.9 H 08357-8) RDW-CV (test code = 18.6 % 12.0-15.5 H 788-0) PLT (test code = See_Comment L [Automated 777-3) message] The sy stem which generated this result transmitted reference range : 166 - 358 10*3/ ?L. The reference r davi was not used to interpret this result as normal/abnormal . MPV (test code = 10.1 fL 9.5-12.9 01474-4) IPF % (test code = 3.2 % 1.3-7.7 Platelet count 1148181290) measured by fluorescence method. NRBC/100 WBC (test See_Comment [Automat ed code = 3419741655) message] The system which generated this result transmitted reference range : 0.0 - 10.0 /100 WBCs. The refer ence range was not u sed to interpret th is result as normal/abnormal . NRBC x10^3 (test code See_Comment [Auto mated = 1028674287) message] The s ystem which generated this result transmitted reference range : 10*3/?L. The reference range was not used to interpret this result as normal/abnormal . GRAN MAT (NEUT) % 65.1 % (test code = 770-8) IMM GRAN % (test code 1.20 % = 3278408356) LYMPH % (test code = 16.9 % 736-9) MONO % (test code = 11.5 % 5905-5) EOS % (test code = 4.5 % 713-8) BASO % (test code = 0.8 % 706-2) GRAN MAT x10^3(ANC) 1.58 10*3/uL 1.88-7.09 L (test code = 6143449093) IMM GRAN x10^3 (test 0.03 10*3/uL 0.00-0.06 code = 7327466281) LYMPH x10^3 (test code 0.41 10*3/uL 1.32-3.29 L = 731-0) MONO x10^3 (test code 0.28 10*3/uL 0.33-0.92 L = 742-7) EOS x10^3 (test code = 0.11 10*3/uL 0.03-0.39 711-2) BASO x10^3 (test code <0.03 0.01-0.07 = 704-7) POLYCHROMASIA (test 2+ See_Comment [Automa josemanuel code = 66134-6) message] The system which generated this result transmitted reference range : 2+. The referen ce range was not u sed to interpret th is result as normal/abnormal . LG GRAN LYMPHS (test Rare Rare code = 1172533302) Lab Interpretation Abnormal (test code = 72450-5) [facility]. METABOLIC PANEL (11981)2020-10-02 10:19:28 Test Item Value Reference Range Interpretation Comments NA (test code = 135 mmol/L 135-145 4946245043) K (test code = 3.4 mmol/L 3.5-5.0 L 2093860998) CL (test code = 104 mmol/L 98-108 3136991610) CO2 TOTAL (test code = 27 mmol/L 23-31 4598066622) AGAP (test code = 2-16 5694979078) BUN (test code = 4 mg/dL 7-23 L 7566355225) GLUCOSE (test code = 97 mg/dL 70-110 9381390495) CREATININE (test code = 0.45 mg/dL 0.50-1.04 L 5631226082) TOTAL BILI (test code = 1.7 mg/dL 0.1-1.1 H 2248163495) CALCIUM (test code = 8.2 mg/dL 8.6-10.6 L 4681425858) T PROTEIN (test code = 6.0 g/dL 6.3-8.2 L 3626567339) ALBUMIN (test code = 3.1 g/dL 3.5-5.0 L 7455986357) ALK PHOS (test code = 120 U/L 34-122 1393600713) ALTv (test code = 26 U/L 5-35 1742-6) AST(SGOT) (test code = 39 U/L 13-40 7964909447) eGFR (test code = mL/min/1.73m2 2482682085) SNOW (test code = SNOW) Association of [...] tests). Lab Interpretation Abnormal (test code = 39575-5) [facility] COVID DIRWWUKPLISJUQ9866-87-04 02:50:27COVID DMT InterpretationInterpretation/Recommendations: Molecular NAAT Tests for [...] testing the patient has had at [facility], including molecular NAAT testing (more commonly known as PCR testing and Rapid ID Now testing) and antibody testing. It does not take into account any testingthat a patient has had outside of the [facility] medical record. [facility] LABORATORY SERVICESCOVID KzidfkyBWYX-RgI-6 NAAT (no units) ? ? Date ? Value ? 02/13/2020 ? Not Detected ? SARS-CoV-2 Rapid ID NOW (no units) ? ? Date ? Value ? 09/29/2020 ? Not Detected ? ? ? 08/10/2019 ? Not Detected ? [facility] WITH [id number] 10:31:29 Test Item Value Reference Range Interpretation [...] (test code = 52.3 fL 39.0-49.9 H 99188-4) RDW-CV (test code = 18.4 % 12.0-15.5 H 788-0) PLT (test code = See_Comment LL [Automated 777-3) message] The sy stem which generated this result transmitted reference range : 166 - 358 10*3/ ?L. The reference r davi was not used to interpret this result as normal/abnormal . MPV (test code = 11.2 fL 9.5-12.9 42731-6) IPF % (test code = 3.9 % 1.3-7.7 Platelet count 2470249930) measured by fluorescence method. NRBC/100 WBC (test See_Comment [Automat ed code = 7385409023) message] The system which generated this result transmitted reference range : 0.0 - 10.0 /100 WBCs. The refer ence range was not u sed to interpret th is result as normal/abnormal . NRBC x10^3 (test code <0.01 See_Comment [Auto mated = 0703281433) message] The s ystem which generated this result transmitted reference range : 10*3/?L. The reference range was not used to interpret this result as normal/abnormal . GRAN MAT (NEUT) % 57.5 % (test code = 770-8) IMM GRAN % (test code 0.50 % = 8430183780) LYMPH % (test code = 20.7 % 736-9) MONO % (test code = 13.3 % 5905-5) EOS % (test code = 6.9 % 713-8) BASO % (test code = 1.1 % 706-2) GRAN MAT x10^3(ANC) 1.08 10*3/uL 1.88-7.09 L (test code = 2205037728) IMM GRAN x10^3 (test <0.03 0.00-0.06 code = 3738131045) LYMPH x10^3 (test code 0.39 10*3/uL 1.32-3.29 L = 731-0) MONO x10^3 (test code 0.25 10*3/uL 0.33-0.92 L = 742-7) EOS x10^3 (test code = 0.13 10*3/uL 0.03-0.39 711-2) BASO x10^3 (test code <0.03 0.01-0.07 = 704-7) BASO STIPPLING (test Present A code = 703-9) ELLIPTO/OVAL (test 2+ See_Comment A [Automat ed code = 62228-0) message] The system which generated this result transmitted reference range : (none). The reference range was not used to interpret this result as normal/abnormal . POLYCHROMASIA (test 2+ See_Comment [Automa josemanuel code = 33803-5) message] The system which generated this result transmitted reference range : 2+. The referen ce range was not u sed to interpret th is result as normal/abnormal . Lab Interpretation Abnormal (test code = 76694-4) [facility] (94513)2020-10-01 09:19:22 Test Item Value Reference Range Interpretation Comments NA (test code = 135 mmol/L 135-145 6803157353) K (test code = 4.0 mmol/L 3.5-5.0 0276878405) CL (test code = 107 mmol/L 98-108 3968922385) CO2 TOTAL (test code = 24 mmol/L 23-31 3504444524) AGAP (test code = 2-16 4283227438) BUN (test code = 7 mg/dL 7-23 2178156312) GLUCOSE (test code = 93 mg/dL 70-110 5169860509) CREATININE (test code = 0.47 mg/dL 0.50-1.04 L 2464054548) TOTAL BILI (test code = 1.6 mg/dL 0.1-1.1 H 9319455385) CALCIUM (test code = 8.1 mg/dL 8.6-10.6 L 8382250390) T PROTEIN (test code = 5.8 g/dL 6.3-8.2 L 0628201581) ALBUMIN (test code = 2.8 g/dL 3.5-5.0 L 7721191662) ALK PHOS (test code = 106 U/L 34-122 4516327498) ALTv (test code = 23 U/L 5-35 1742-6) AST(SGOT) (test code = 39 U/L 13-40 7976495759) eGFR (test code = mL/min/1.73m2 3098282202) SNOW (test code = SNOW) Association of [...] tests). Lab Interpretation Abnormal (test code = 80489-2) [facility] [id number] 20:47:45 Test Item Value Reference Range Interpretation Comments TROPONIN I (test 0.002 ng/mL See_Comment [Automated code = 6759159668) message] The system which generated this result [...] ? Lab Interpretation Normal (test code = 59740-0) [facility] [id number] 19:11:57 Test Item Value Reference Range Interpretation Comments URINE CULTURE (test code <10,000 CFU/mL = 630-4) Gram-Positive Cocci [facility] BY [id number] 18:17:03 Test Item Value Reference Range Interpretation Comments Campylobacter (jejuni, Negative Negative, coli and upsaliensis) Indeterminate, (test code = 77133-7) See comment Plesiomonas shigelloides Negative Negative, (test code = 66611-7) Indeterminate, See comment Salmonella (test code = Negative Negative, 53388-0) Indeterminate, See comment Yersinia enterocolitica Negative Negative, (test code = 08715-4) Indeterminate, See comment Vibrio (test code = Negative Negative, 78975-2) Indeterminate, See comment Vibrio cholerae (test Negative Negative, code = 12496-2) Indeterminate, See comment Enteroaggregative E. Negative Negative, coli (EAEC) (test code = Indeterminate, 21870-2) See comment Enteropathogenic E. coli Negative Negative, N/A, (EPEC) (test code = Indeterminate, 79921-1) See comment Enterotoxigenic E. coli Negative Negative, (ETEC) (test code = Indeterminate, 46404-9) See comment Shiga toxin-Producing E. Negative Negative, coli (STEC) (test code = Indeterminate, 55063-0) See comment Shigella/Enteroinvasive Negative Negative, E. coli (EIEC) (test Indeterminate, code = 89284-4) See comment Cryptosporidium (test Negative Negative, code = 45140-0) Indeterminate, See comment Cyclospora cayetanensis Negative Negative, (test code = 34850-2) Indeterminate, See comment Entamoeba histolytica Negative Negative, (test code = 83891-2) Indeterminate, See comment Giardia lamblia (test Negative Negative, code = 84578-0) Indeterminate, See comment Adenovirus F 40/41 (test Negative Negative, code = 52715-3) Indeterminate, See comment Astrovirus (test code = Negative Negative, 20767-4) Indeterminate, See comment Norovirus GI/GII (test Negative Negative, code = 15499-8) Indeterminate, See comment Rotavirus A (test code = Negative Negative, 93468-8) Indeterminate, See comment Sapovirus (test code = Negative Negative, 03593-4) Indeterminate, See comment Clostridioides Positive Negative, A (Clostridium) difficile Indeterminate, Toxin A/B (test code = See comment 42579-9) SNOW (test code = SNOW) Based on BlaBlaCarArray GI Panel package insert, the BlaBlaCarArray GI Panel contains a single multiplexed assay [...] Clostridium difficile toxin A/B Detected. Based the CepOpenbuildsid Xpert C. difficile/Epi assay package insert, Xpert C. difficile/Epi assay detects the toxin B gene (tcdB), the binary toxin gene (CDT), and the bqumhe-rvfc-ksrh deletion at nucleotide 117 within the gene [...] organism. Lab Interpretation (test Abnormal code = 02264-8) [facility] [id number] 14:26:32 Test Item Value Reference Range Interpretation Comments Occult (guaiac) Blood (test code = Negative Negative 2335-8) Lab Interpretation (test code = Normal 05987-0) [facility] WITH [id number] 13:54:12 Test Item Value Reference Range Interpretation [...] (test code = 52.9 fL 39.0-49.9 H 52437-9) RDW-CV (test code = 18.3 % 12.0-15.5 H 788-0) PLT (test code = See_Comment LL [Automated 777-3) message] The sy stem which generated this result transmitted reference range : 166 - 358 10*3/ ?L. The reference r davi was not used to interpret this result as normal/abnormal . MPV (test code = 10.8 fL 9.5-12.9 82306-3) IPF % (test code = 4.2 % 1.3-7.7 Platelet count 4537545818) measured by fluorescence method. NRBC/100 WBC (test See_Comment [Automat ed code = 6903828515) message] The system which generated this result transmitted reference range : 0.0 - 10.0 /100 WBCs. The refer ence range was not u sed to interpret th is result as normal/abnormal . NRBC x10^3 (test code <0.01 See_Comment [Auto mated = 9996568192) message] The s ystem which generated this result transmitted reference range : 10*3/?L. The reference range was not used to interpret this result as normal/abnormal . GRAN MAT (NEUT) % 60.0 % (test code = 770-8) IMM GRAN % (test code 0.40 % = 3329330733) LYMPH % (test code = 20.6 % 736-9) MONO % (test code = 11.3 % 5905-5) EOS % (test code = 6.9 % 713-8) BASO % (test code = 0.8 % 706-2) GRAN MAT x10^3(ANC) 1.49 10*3/uL 1.88-7.09 L (test code = 0703617137) IMM GRAN x10^3 (test <0.03 0.00-0.06 code = 7648984014) LYMPH x10^3 (test code 0.51 10*3/uL 1.32-3.29 L = 731-0) MONO x10^3 (test code 0.28 10*3/uL 0.33-0.92 L = 742-7) EOS x10^3 (test code = 0.17 10*3/uL 0.03-0.39 711-2) BASO x10^3 (test code <0.03 0.01-0.07 = 704-7) Lab Interpretation Abnormal (test code = 76852-1) [facility]. METABOLIC PANEL (38014)2020-09-30 12:47:49 Test Item Value Reference Range Interpretation Comments NA (test code = 135 mmol/L 135-145 3846862084) K (test code = 4.0 mmol/L 3.5-5.0 5937361594) CL (test code = 108 mmol/L 98-108 1983226538) CO2 TOTAL (test code = 23 mmol/L 23-31 8535842848) AGAP (test code = 2-16 1281169433) BUN (test code = 8 mg/dL 7-23 9160943187) GLUCOSE (test code = 109 mg/dL 70-110 6444289902) CREATININE (test code = 0.52 mg/dL 0.50-1.04 0890243062) TOTAL BILI (test code = 1.7 mg/dL 0.1-1.1 H 7746203978) CALCIUM (test code = 8.0 mg/dL 8.6-10.6 L 3925254165) T PROTEIN (test code = 5.7 g/dL 6.3-8.2 L 7610921688) ALBUMIN (test code = 2.7 g/dL 3.5-5.0 L 3393157027) ALK PHOS (test code = 106 U/L 34-122 7040942226) ALTv (test code = 22 U/L 5-35 1742-6) AST(SGOT) (test code = 34 U/L 13-40 6659048775) eGFR (test code = mL/min/1.73m2 8728522647) SNOW (test code = SNOW) Association of [...] tests). Lab Interpretation Abnormal (test code = 73690-8) [facility] [id number] 11:49:39 Test Item Value Reference Range Interpretation Comments Fecal Leukocytes (test code = Positive Negative A 6088769983) Lab Interpretation (test code = Abnormal 31700-5) [facility] [id number] 10:20:53 Test Item Value Reference Range Interpretation Comments NT-proBNP (test code 68 pg/mL See_Comment [Autom ated = 6919336696) message] The system which generated this result transmitted reference range : <=125. The reference range was not used to interpret this result as normal/abnormal . SNOW (test code = SNOW) Biotin has been reported to cause a negative bias, interpret results relative to patient's use of biotin. Lab Interpretation Normal (test code = 41466-6) [facility]oundCLOSTRIDIUM DIFFICILE [id number] 05:18:16 Test Item Value Reference Range Interpretation Comments Clostridioides (Clostridium) Negative Negative difficile (test code = 79842-6) Lab Interpretation (test code = Normal 76217-3) [facility]ound[facility] GLUCOSE (AUTOMATED)2020-09-30 00:54:42 Test Item Value Reference Range Interpretation Comments POCT GLU (test code = 7745989111) 111 mg/dL 70-110 H Lab Interpretation (test code = Abnormal 97072-0) [facility] METABOLIC PANEL (NA, K, CL, CO2, GLUCOSE, BUN, CREATININE, CA)2020-09-29 22:08:22 Test Item Value Reference Range Interpretation Comments NA (test code = 135 mmol/L 135-145 9579532250) K (test code = 3.7 mmol/L 3.5-5.0 8836477811) CL (test code = 108 mmol/L 98-108 9718671661) CO2 TOTAL (test code = 22 mmol/L 23-31 L 4844980792) AGAP (test code = 2-16 9168907155) BUN (test code = 9 mg/dL 7-23 1427109752) GLUCOSE (test code = 104 mg/dL 70-110 0864581899) CREATININE (test code = 0.51 mg/dL 0.50-1.04 1698042746) CALCIUM (test code = 7.9 mg/dL 8.6-10.6 L 1562362191) eGFR (test code = mL/min/1.73m2 3518937999) SNOW (test code = SNOW) Association of [...] tests). Lab Interpretation Abnormal (test code = 19669-0) [facility]MOGLOBIN2021-06-21 21:41:20 Test Item Value Reference Range Interpretation Comments HGB (test code = 718-7) 7.4 g/dL 11.6-15.0 L Lab Interpretation (test code = Abnormal 30074-9) [facility]oundVITAMIN B12, [id number] 20:39:52 Test Item Value Reference Range Interpretation Comments VIT B12 (test code = 212 pg/mL 240-930 L 7105170418) SNOW (test code = SNOW) Biotin has been reported to cause a positive bias, interpret results relative to patient's use of biotin. Lab Interpretation (test Abnormal code = 91930-8) [facility]oundDIFF CONSULT [id number] 17:24:18 LEUKOPENIA WITH ABSOLUTE LYMPHOPENIA, REACTIVE MONOCYTES [...] NORMAL IPF CONSISTENT WITH LIVER DYSFUNCTION.[facility]oundC-REACTIVE [id number] 17:01:56 Test Item Value Reference Range Interpretation Comments CRP (test code = 2067297421) 4.7 mg/dL <0.8 H Lab Interpretation (test code = Abnormal 53679-8) [facility]oundVITAMIN D, [id number] 16:43:29 Test Item Value Reference Range Interpretation Comments VIT D 25OH (test code = <13 25-80 L 79655-3) SNOW (test code = SNOW) Deficiency: <20 ng/mLInsufficiency: 20-24 ng/mLOptimal: 25-80 ng/mL Lab Interpretation (test Abnormal code = 20493-7) [facility]oundPROCALCITONIN2021-06-21 16:15:30 Test Item Value Reference Range Interpretation Comments Procalcitonin (test 0.08 ng/mL <0.07 H code = 6475791668) SNOW (test code = SNOW) INTERPRETATION OF [...] lung abscess/empyema. For further information please refer to:[email or web address] Lab Interpretation Abnormal (test code = 49110-8) [facility]oundOSMOLALITY [id number] 15:35:14 Test Item Value Reference Range Interpretation Comments OSMO U (test code = See_Comment [Automa josemanuel message] 9205477412) The system [employer] generated this result transmitted ref erence range: 50-1,100 mOsm/kg. The re ference range was not u sed to interpret this result as normal/abnor mal. Lab Interpretation (test Normal code = 37057-6) [facility] MoundTROPONIN [id number] 14:04:56 Test Item Value Reference Range Interpretation Comments TROPONIN I (test 0.002 ng/mL See_Comment [Automated code = 1093454074) message] The system which generated this result [...] ? Lab Interpretation Normal (test code = 28458-2) [facility]oundCT ABDOMEN PELVIS W [id number] 13:37:17 1. ?Findings concerning for infectious or [...] reviewed this study and agree with theabove report.[facility] WITH [id number] 11:41:25 Test Item Value Reference Range Interpretation [...] (test code = 52.4 fL 39.0-49.9 H 26136-9) RDW-CV (test code = 18.2 % 12.0-15.5 H 788-0) PLT (test code = See_Comment LL [Automated 777-3) message] The system which generated this result transmit josemanuel reference range : 166 - 358 10*3/ ?L. The reference range was not u sed to interpret th is result as normal/abnormal . MPV (test code = Not Measure d 00446-8) IPF % (test code = 4.3 % 1.3-7.7 Platelet count 5728244293) measured by fluorescence method. NRBC/100 WBC (test See_Comment [Automat ed code = 8306931495) message] The system which generated this result transmit josemanuel reference range : 0.0 - 10.0 /100 WBCs. The reference range was not used to interpret this result as normal/abnormal . NRBC x10^3 (test code <0.01 See_Comment [Auto mated = 3048263827) message] The system which generated this result transmit josemanuel reference range : 10*3/?L. The reference range was not used to interpret this result as normal/abnormal . GRAN MAT (NEUT) % 74.4 % (test code = 770-8) IMM GRAN % (test code 0.50 % = 8936432439) LYMPH % (test code = 10.3 % 736-9) MONO % (test code = 12.3 % 5905-5) EOS % (test code = 2.0 % 713-8) BASO % (test code = 0.5 % 706-2) GRAN MAT x10^3(ANC) 3.02 10*3/uL 1.88-7.09 (test code = 1465822999) IMM GRAN x10^3 (test <0.03 0.00-0.06 code = 7756711164) LYMPH x10^3 (test 0.42 10*3/uL 1.32-3.29 L code = 731-0) MONO x10^3 (test code 0.50 10*3/uL 0.33-0.92 = 742-7) EOS x10^3 (test code 0.08 10*3/uL 0.03-0.39 = 711-2) BASO x10^3 (test code <0.03 0.01-0.07 = 704-7) PLT ESTIMATE (test Decreased Normal A code = 9317-9) SNOW (test code = SNOW) CBC smear reduced platelet Lab Interpretation Abnormal (test code = 68540-6) [facility]oundN-TERMINAL [id number] 11:07:24 Test Item Value Reference Range Interpretation Comments NT-proBNP (test code 79 pg/mL See_Comment [Autom ated = 9410065270) message] The system which generated this result transmitted reference range : <=125. The reference range was not used to interpret this result as normal/abnormal . SNOW (test code = SNOW) Biotin has been reported to cause a negative bias, interpret results relative to patient's use of biotin. Lab Interpretation Normal (test code = 30738-5) [facility] MoundIRON [id number] 11:04:41 Test Item Value Reference Range Interpretation Comments IRON (test code = 2978255172) 31 ug/dL 50-160 L TIBC (test code = 9545322509) 295 ug/dL 250-410 % FE SAT (test code = 7897390451) 11 % 20-50 L Lab Interpretation (test code = Abnormal 80884-2) [facility]oundPROTEIN CREAT RATIO URINE [id number] 10:57:19 Test Item Value Reference Range Interpretation Comments T. PROT U (test code = 2888-6) 9 mg/dL CREAT U (test code = 2506714252) 187.5 mg/dL Protein/Creatinine Ratio Urine 0.0-2.0 (test code = 5945622142) [facility]oundSODIUM, URINE [id number] 10:53:21 Test Item Value Reference Range Interpretation Comments NA URINE (test code = 1824474068) 30 mmol/L [facility] MoundSEDIMENTATION [id number] 10:33:04 Test Item Value Reference Range Interpretation Comments ESR (test code = See_Comment [Automated message] 7465929202) The system [employer] h generated this result transmitted ref erence range: 0 - 20 m m/HR. The reference r davi was not used to interpret this result as normal/abnor mal. Lab Interpretation (test Normal code = 94238-2) [facility] MoundPROTHROMBIN TIME / [id number] 09:43:39 Test Item Value Reference Range Interpretation Comments PROTIME PATIENT (test See_Comment H [Auto mated message] code = 5964-2) The system [employer] generated this result transmitted ref erence range: 12.0 - 1 4.7 Seconds. The reference range was not used to int erpret this result as normal/abnormal . INR (test code = 6301-6) Nor mal INR <1.1; Warfarin Therap eutic range 2.0 to 3. 0 or 2.5 to 3.5, dep ending upon the indica tions. Lab Interpretation (test Abnormal code = 68939-7) [facility] MoundLactic Acid Whole [id number] 08:42:38 Test Item Value Reference Range Interpretation Comments LACTIC ACID (test code = 1.47 mmol/L 0.50-2.20 1727475054) Lab Interpretation (test code = Normal 66428-5) [facility] MoundFERRITIN [id number] 07:31:09 Test Item Value Reference Range Interpretation Comments FERRITIN (test code = 12.2 ng/mL 11.0-264.0 9277811242) SNOW (test code = SNOW) Biotin has been reported to cause a negative bias, interpret results relative to patient's use of biotin. Lab Interpretation (test Normal code = 74021-7) [facility] MoundTHYROID STIMULATING [id number] 07:27:08 Test Item Value Reference Range Interpretation Comments TSH (test code = See_Comment [Automated message] 4597366378) The system [employer] generated this result transmitted ref erence range: 0.45 - 4 .70 mIU/L. The refe rence range was not u sed to interpret this result as normal/abnor mal. Lab Interpretation (test Normal code = 25814-4) [facility] MoundGLYCOSYLATED HEMOGLOBIN (A1C)2020-09-29 07:05:40 Test Item Value Reference Range Interpretation Comments HGB A1C (test code = 5.0 % 4.0-5.7 4548-4) SNOW (test code = SNOW) Reference RangesNormal: <5.7%Prediabetes: 5.7 - 6.4%Diabetes: > 6.5% Lab Interpretation (test Normal code = 91161-5) [facility] MoundURIC [id number] 07:05:35 Test Item Value Reference Range Interpretation Comments URIC ACID (test code = 3267206726) 4.2 mg/dL 2.9-6.0 Lab Interpretation (test code = Normal 03699-3) [facility] MoundCREATINE [id number] 07:05:30 Test Item Value Reference Range Interpretation Comments CK (test code = 7211715879) 192 U/L 33-194 Lab Interpretation (test code = Normal 71750-4) [facility]oundN-TERMINAL [id number] 07:05:30 Test Item Value Reference Range Interpretation Comments NT-proBNP (test code 94 pg/mL See_Comment [Autom ated = 6639026727) message] The system which generated this result transmitted reference range : <=125. The reference range was not used to interpret this result as normal/abnormal . SNOW (test code = SNOW) Biotin has been reported to cause a negative bias, interpret results relative to patient's use of biotin. Lab Interpretation Normal (test code = 16238-2) [facility]oundMAGNESIUM2021-06-21 07:04:24 Test Item Value Reference Range Interpretation Comments MAGNESIUM (test code = 5385485598) 1.8 mg/dL 1.7-2.4 Lab Interpretation (test code = Normal 53207-1) [facility]oundPHOSPHORUS2021-06-21 07:03:39 Test Item Value Reference Range Interpretation Comments PHOSPHORUS (test code = 4880256424) 2.2 mg/dL 2.5-5.0 L Lab Interpretation (test code = Abnormal 08369-3) [facility] MoundLIPID PANEL (31443)(TOTAL CHOLESTEROL, TRIGLYCERIDES, HDL)2020-09-29 06:56:06 Test Item Value Reference Range Interpretation Comments CHOL (test code = 132 mg/dL 120-200 0329893926) HDL (test code = 41 mg/dL >50 L 2439201476) HDLC RATIO (test code = See_Comment [Au tomated message] 4891686940) The system [employer] generated this result transmit josemanuel reference range : <=4.5. The refe rence range was not u sed to interpret th is result as normal/abnormal . TRIG (test code = 73 mg/dL 30-170 4840080540) LDL CHOL (test code = 76 mg/dL See_Comment [Auto mated message] 99948-8) The system [employer] generated this result transmit josemanuel reference range : <=160. The refe rence range was not u sed to interpret th is result as normal/abnormal . VLDL (test code = 15 mg/dL 5-60 5594821301) Lab Interpretation (test Abnormal code = 12904-6) [facility]COVID-19 (ID NOW RAPID TESTING)2020-09-29 06:24:26 Test Item Value Reference Range Interpretation Comments SARS-CoV-2 Rapid ID NOW Not Detected Not Detected (test code = 61639-1) SNOW (test code = SNOW) ID NOW COVID-19 Assay is an isothermal nucleic acid amplification test intended for the qualitative detection of nucleic acid from SARS-CoV-2 viral RNA in nasopharyngeal (FOAMITE MIXER) specimens. It is used under Emergency Use [...] indicated. Lab Interpretation Normal (test code = 94929-2) [facility]oundURINALYSIS2021-06-21 04:43:31 Test Item Value Reference Range Interpretation Comments APPEARANCE (test code = Clear Clear 4792645374) COLOR (test code = Rosanne Yellow A 9733892932) PH (test code = 4.8-8.0 6632726330) SP GRAVITY (test code = 1.003-1.030 3291791724) GLU U QUAL (test code = Normal Normal 3275515554) BLOOD (test code = Negative Negative 3973199163) KETONES (test code = Negative Negative 4152152996) PROTEIN (test code = 30 mg/dL Negative A 2887-8) UROBILIN (test code = Normal Normal 8387172576) BILIRUBIN (test code = Negative Negative 5741889203) NITRITE (test code = Negative Negative 6856946387) LEUK RANULFO (test code = 25/uL Negative A 5293692949) RBC/HPF (test code = See_Comment [Autom ated message] 1189713371) The system [employer] generated this result transmitted ref erence range: 0 - 3 HP F. The reference range was not used to int erpret this result as normal/abnormal . WBC/HPF (test code = See_Comment [Autom ated message] 7402378820) The system whic h generated this result transmitted ref erence range: 0 - 5 HP F. The reference range was not used to int erpret this result as normal/abnormal . BACTERIA (test code = Few Negative A 2771381202) MUCOUS (test code = Moderate Negative LPF A 5209588858) SQ EPITH (test code = HPF 1176939109) Lab Interpretation (test Abnormal code = 26127-7) [facility] WITH [id number] 04:39:35 Test Item Value Reference Range Interpretation [...] (test code = 51.3 fL 39.0-49.9 H 79433-0) RDW-CV (test code = 18.1 % 12.0-15.5 H 788-0) PLT (test code = See_Comment L [Automated 777-3) message] The system which generated this result transmit josemanuel reference range : 166 - 358 10*3/ ?L. The reference range was not u sed to interpret th is result as normal/abnormal . MPV (test code = 11.1 fL 9.5-12.9 71385-7) IPF % (test code = 3.7 % 1.3-7.7 Platelet count 3187466365) measured by fluorescence method. NRBC/100 WBC (test See_Comment [Automat ed code = 9983277772) message] The system which generated this result transmit josemanuel reference range : 0.0 - 10.0 /100 WBCs. The reference range was not used to interpret this result as normal/abnormal . NRBC x10^3 (test code <0.01 See_Comment [Auto mated = 9856676738) message] The system which generated this result transmit josemanuel reference range : 10*3/?L. The reference range was not used to interpret this result as normal/abnormal . GRAN MAT (NEUT) % 76.4 % (test code = 770-8) IMM GRAN % (test code 0.80 % = 5926033482) LYMPH % (test code = 9.4 % 736-9) MONO % (test code = 11.3 % 5905-5) EOS % (test code = 1.5 % 713-8) BASO % (test code = 0.6 % 706-2) GRAN MAT x10^3(ANC) 4.07 10*3/uL 1.88-7.09 (test code = 7024602606) IMM GRAN x10^3 (test 0.04 10*3/uL 0.00-0.06 code = 2529157975) LYMPH x10^3 (test 0.50 10*3/uL 1.32-3.29 L code = 731-0) MONO x10^3 (test code 0.60 10*3/uL 0.33-0.92 = 742-7) EOS x10^3 (test code 0.08 10*3/uL 0.03-0.39 = 711-2) BASO x10^3 (test code 0.03 10*3/uL 0.01-0.07 = 704-7) PLT ESTIMATE (test Decreased Normal A code = 9317-9) SNOW (test code = SNOW) Juan slide adgrees to decreased Platelet Lab Interpretation Abnormal (test code = 87981-9) [facility]COMP. METABOLIC PANEL (76206)2020-09-29 04:25:42 Test Item Value Reference Range Interpretation Comments NA (test code = 134 mmol/L 135-145 L 4610752198) K (test code = 3.2 mmol/L 3.5-5.0 L 7806539749) CL (test code = 104 mmol/L 98-108 2861929824) CO2 TOTAL (test code = 24 mmol/L 23-31 7839830253) AGAP (test code = 2-16 7391061404) BUN (test code = 8 mg/dL 7-23 9354831883) GLUCOSE (test code = 105 mg/dL 70-110 0061599738) CREATININE (test code = 0.51 mg/dL 0.50-1.04 8596198040) TOTAL BILI (test code = 2.5 mg/dL 0.1-1.1 H 9370809420) CALCIUM (test code = 8.2 mg/dL 8.6-10.6 L 5385956195) T PROTEIN (test code = 6.3 g/dL 6.3-8.2 7433289867) ALBUMIN (test code = 3.1 g/dL 3.5-5.0 L 6591273133) ALK PHOS (test code = 136 U/L 34-122 H 9831832811) ALTv (test code = 24 U/L 5-35 1742-6) AST(SGOT) (test code = 30 U/L 13-40 4043579857) eGFR (test code = mL/min/1.73m2 8221645025) SNOW (test code = SNOW) Association of [...] tests). Lab Interpretation Abnormal (test code = 82266-2) [facility]LIPASE2021-06-21 04:25:42 Test Item Value Reference Range Interpretation Comments LIPASE (test code = 8188808740) 102 U/L 0-220 Lab Interpretation (test code = Normal 72834-1) [facility]CoV-[facility] (COVID-19) RNA [Presence] in Respiratory specimen by HELENA with probe [id number] 00:49:19 Test Item Value Reference Range Interpretation Comments SARS-CoV-2 (COVID-19) RNA Not detected Not-Detected [Presence] in Respiratory specimen by HELENA with probe detection (test code = 83668-2) 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 employed 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 healthcare 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 (test code = 78573-8) Whether the patient has symptoms related to condition of interest (test code = 84168-8) Patient was hospitalized because of this condition (test code = 60770-9) Whether the patient was admitted to intensive care unit (ICU) for condition of interest (test code = 71950-0) Whether patient resides in a congregate care setting (test code = 91682-7) BROOKE CHOUSARS-CoV-2 (COVID-19) RNA [Presence] in Respiratory specimen by HELENA with probe [id number] 02:47:43 Test Item Value Reference Range Interpretation Comments SARS-CoV-2 (COVID-19) RNA Not detected Not-Detected [Presence] in Respiratory specimen by HELENA with probe detection (test code = 98494-2) BROOKE KYLE JDZBCHDK-QdM-4 (COVID-19) RNA [Presence] in Respiratory specimen by HELENA with probe [id number] 16:32:37 Test Item Value Reference Range Interpretation Comments SARS-CoV-2 (COVID-19) RNA Not detected Not-Detected [Presence] in Respiratory specimen by HELENA with probe detection (test code = 29746-3) BROOKE CHOUSARS-CoV-2 (COVID-19) RNA [Presence] in Respiratory specimen by HELENA with probe [id number] 05:29:57 Test Item Value Reference Range Interpretation Comments SARS-CoV-2 (COVID-19) RNA Not detected Not-Detected [Presence] in Respiratory specimen by HELENA with probe detection (test code = 01145-7) BROOKE KYLE WESTCT ABDOMEN PELVIS W [id number] 19:27:49 1. ?No evidence of small bowel [...] the priorstudy.Preliminary Report Dic tated by Resident: Frandy Watson Michael, MD., have reviewed this study and agree with the abovereport.[facility] WITH [id number] 11:56:00 Test Item Value Reference Range Interpretation [...] (test code = 58.0 fL 39-49.9 H 29950-8) RDW-CV (test code = 16.6 % 12-15.5 H 788-0) PLT (test code = See_Comment LL [Automated 777-3) message] The sy stem which generated this result transmitted reference range : 166 - 358 10*3/ ?L. The reference r davi was not used to interpret this result as normal/abnormal . MPV (test code = 11.0 fL 9.5-12.9 43521-4) IPF % (test code = 5.5 % 1.3-7.7 Platelet count 6686464199) measured by fluorescence method. NRBC/100 WBC (test See_Comment [Automat ed code = 6530648600) message] The system which generated this result transmitted reference range : 0.0 - 10.0 /100 WBCs. The refer ence range was not u sed to interpret th is result as normal/abnormal . NRBC x10^3 (test code <0.01 See_Comment [Auto mated = 9191097193) message] The s ystem which generated this result transmitted reference range : 10*3/?L. The reference range was not used to interpret this result as normal/abnormal . GRAN MAT (NEUT) % 57.6 % (test code = 770-8) IMM GRAN % (test code 0.00 % = 4349451960) LYMPH % (test code = 27.1 % 736-9) MONO % (test code = 11.8 % 5905-5) EOS % (test code = 3.1 % 713-8) BASO % (test code = 0.4 % 706-2) GRAN MAT x10^3(ANC) 1.47 10*3/uL 1.88-7.09 L (test code = 4342118974) IMM GRAN x10^3 (test <0.03 0-0.06 code = 1118327903) LYMPH x10^3 (test code 0.69 10*3/uL 1.32-3.29 L = 731-0) MONO x10^3 (test code 0.30 10*3/uL 0.33-0.92 L = 742-7) EOS x10^3 (test code = 0.08 10*3/uL 0.03-0.39 711-2) BASO x10^3 (test code <0.03 0.01-0.07 = 704-7) Lab Interpretation Abnormal (test code = 97208-0) [facility]. METABOLIC PANEL (07598)2019-08-11 10:42:00 Test Item Value Reference Range Interpretation Comments NA (test code = 138 mmol/L 135-145 0674597770) K (test code = 3.8 mmol/L 3.5-5 5863231414) CL (test code = 108 mmol/L 98-108 3136670412) CO2 TOTAL (test code = 24 mmol/L 23-31 1996672754) AGAP (test code = 2-16 4913434470) BUN (test code = 10 mg/dL 7-23 5283609899) GLUCOSE (test code = 108 mg/dL 70-110 0608215490) CREATININE (test code = 0.43 mg/dL 0.5-1.04 L 3378765590) TOTAL BILI (test code = 2.5 mg/dL 0.1-1.1 H 9487710397) CALCIUM (test code = 8.4 mg/dL 8.6-10.6 L 7070486104) T PROTEIN (test code = 6.1 g/dL 6.3-8.2 L 4943206306) ALBUMIN (test code = 3.1 g/dL 3.5-5 L 9545311186) ALK PHOS (test code = 102 U/L 34-122 2536427118) ALTv (test code = 52 U/L 5-35 H 1742-6) AST(SGOT) (test code = 63 U/L 13-40 H 2576945360) eGFR Calculation mL/min/1.73m2 (Non-) (test code = 5242574748) eGFR Calculation mL/min/1.73m2 () (test code = 7385162747) SNOW (test code = SNOW) Association of [...] tests). Lab Interpretation Abnormal (test code = 15697-6) [facility]OW[facility] [id number] 02:08:11 1. ?No bowel obstruction. No fluoroscopic [...] obstruction.No fluoroscopic images or fluoroscopic time.RL 6[address] [facility] HospitalSEDIMENTATION [id number] 16:19:00 Test Item Value Reference Range Interpretation Comments ESR (test code = See_Comment [Automated message] 8005357026) The system [employer] generated this result transmitted ref erence range: 0 - 20 m m/HR. The reference r davi was not used to interpret this result as normal/abnor mal. Lab Interpretation (test Normal code = 64819-2) [facility] - To confirm nasogastric tube [...] reviewed this study and agree with the abovereport.[facility] WITH [id number] 13:48:00 Test Item Value Reference Range Interpretation Comments WBC (test code = See_Comment L [Automated 2390-2) message] The system which generated this result transmit josemanuel reference range : 4.30 - 11.10 10*3/?L. The reference range was not used to interpret this result as normal/abnormal . RBC (test code = See_Comment L [Automated 649-8) message] The system which generated this result [...] (test code = 58.4 fL 39-49.9 H 22426-1) RDW-CV (test code = 16.7 % 12-15.5 H 788-0) PLT (test code = See_Comment LL [Automated 777-3) message] The system which generated this result transmit josemanuel reference range : 166 - 358 10*3/ ?L. The reference range was not u sed to interpret th is result as normal/abnormal . MPV (test code = 10.5 fL 9.5-12.9 97022-0) IPF % (test code = 3.0 % 1.3-7.7 Platelet count 6184354480) measured by fluorescence method. NRBC/100 WBC (test See_Comment [Automat ed code = 8037292537) message] The system which generated this result transmit josemanuel reference range : 0.0 - 10.0 /100 WBCs. The reference range was not used to interpret this result as normal/abnormal . NRBC x10^3 (test code <0.01 See_Comment [Auto mated = 6173053824) message] The system which generated this result transmit josemanuel reference range : 10*3/?L. The reference range was not used to interpret this result as normal/abnormal . GRAN MAT (NEUT) % 57.1 % (test code = 770-8) IMM GRAN % (test code 0.40 % = 8588447119) LYMPH % (test code = 28.1 % 736-9) MONO % (test code = 10.4 % 5905-5) EOS % (test code = 3.6 % 713-8) BASO % (test code = 0.4 % 706-2) GRAN MAT x10^3(ANC) 1.42 10*3/uL 1.88-7.09 L (test code = 8749911802) IMM GRAN x10^3 (test <0.03 0-0.06 code = 7274311387) LYMPH x10^3 (test 0.70 10*3/uL 1.32-3.29 L code = 731-0) MONO x10^3 (test code 0.26 10*3/uL 0.33-0.92 L = 742-7) EOS x10^3 (test code 0.09 10*3/uL 0.03-0.39 = 711-2) BASO x10^3 (test code <0.03 0.01-0.07 = 704-7) PLT ESTIMATE (test Critically Normal AA code = 9317-9) Decreased Lab Interpretation Abnormal (test code = 97597-7) [facility]oundGLYCOSYLATED HEMOGLOBIN (A1C)2019-08-10 13:13:00 Test Item Value Reference [...] Indicated Lab Interpretation Normal (test code = 25515-0) [facility]oundTHYROID STIMULATING [id number] 13:05:00 Test Item Value Reference Range Interpretation Comments TSH (test code = See_Comment [Automated message] 2083254891) The system [employer] generated this result transmitted ref erence range: 0.45 - 4 .70 mIU/L. The refe rence range was not u sed to interpret this result as normal/abnor mal. Lab Interpretation (test Normal code = 06981-4) [facility]PREGNANCY TEST, [id number] 13:04:00 Test Item Value Reference Range Interpretation Comments PREG SERUM (test code Negative = 2977599511) SNOW (test code = SNOW) Less than 10 IU/L. ?If low titer or ectopic is suspected, resubmit specimen in 48-72 hours. [facility] MoundLIPID PANEL (95767)(TOTAL CHOLESTEROL, TRIGLYCERIDES, HDL)2019-08-10 12:36:00 Test Item Value Reference Range Interpretation Comments CHOL (test code = 158 mg/dL 120-200 7293587007) HDL (test code = 47 mg/dL >50 L 8159473912) HDLC RATIO (test code = See_Comment [Au tomated message] 7897694563) The system [employer] generated this result transmit josemanuel reference range : <=4.5. The refe rence range was not u sed to interpret th is result as normal/abnormal . TRIG (test code = 51 mg/dL 30-170 6919297702) LDL CHOL (test code = 101 mg/dL See_Comment [Auto mated message] 67608-2) The system [employer] generated this result transmit josemanuel reference range : <=160. The refe rence range was not u sed to interpret th is result as normal/abnormal . VLDL (test code = 10 mg/dL 5-60 4865187791) Lab Interpretation (test Abnormal code = 98826-8) [facility]. METABOLIC PANEL (05145)2019-08-10 12:35:00 Test Item Value Reference Range Interpretation Comments NA (test code = 139 mmol/L 135-145 9459440978) K (test code = 3.9 mmol/L 3.5-5 8384948999) CL (test code = 109 mmol/L 98-108 H 3964021342) CO2 TOTAL (test code = 25 mmol/L 23-31 0747985650) AGAP (test code = 2-16 8020857732) BUN (test code = 15 mg/dL 7-23 2968778676) GLUCOSE (test code = 218 mg/dL 70-110 H 6488313542) CREATININE (test code = 0.40 mg/dL 0.5-1.04 L 0594894888) TOTAL BILI (test code = 2.0 mg/dL 0.1-1.1 H 6743266888) CALCIUM (test code = 8.5 mg/dL 8.6-10.6 L 6318403171) T PROTEIN (test code = 6.2 g/dL 6.3-8.2 L 4557931161) ALBUMIN (test code = 3.1 g/dL 3.5-5 L 7968181773) ALK PHOS (test code = 99 U/L 34-122 6776741581) ALTv (test code = 42 U/L 5-35 H 1742-6) AST(SGOT) (test code = 49 U/L 13-40 H 5595964308) eGFR Calculation mL/min/1.73m2 (Non-) (test code = 9115229294) eGFR Calculation mL/min/1.73m2 () (test code = 6248389807) SNOW (test code = SNOW) Association of [...] tests). Lab Interpretation Abnormal (test code = 48268-4) [facility]MAGNESIUM2020-05-01 12:35:00 Test Item Value Reference Range Interpretation Comments MAGNESIUM (test code = 8018722045) 1.6 mg/dL 1.7-2.4 L Lab Interpretation (test code = Abnormal 75173-2) [facility]PHOSPHORUS2020-05-01 12:35:00 Test Item Value Reference Range Interpretation Comments PHOSPHORUS (test code = 3601710167) 3.6 mg/dL 2.5-5 Lab Interpretation (test code = Normal 15656-6) [facility]oundCREATINE [id number] 12:35:00 Test Item Value Reference Range Interpretation Comments CK (test code = 5446430488) 123 U/L 33-194 Lab Interpretation (test code = Normal 80789-3) [facility]LIPASE2020-05-01 12:35:00 Test Item Value Reference Range Interpretation Comments LIPASE (test code = 9464400752) 141 U/L 0-220 Lab Interpretation (test code = Normal 19803-7) [facility]AMYLASE2020-05-01 12:34:00 Test Item Value Reference Range Interpretation Comments LIN (test code = 9261854171) 73 U/L 35-110 Lab Interpretation (test code = Normal 02868-6) [facility] MoundPROTHROMBIN TIME / [id number] 12:07:00 Test Item Value Reference Range Interpretation Comments PROTIME PATIENT (test See_Comment H [Auto mated message] code = 5964-2) The system [employer] generated this result transmitted ref erence range: 12.0 - 1 4.7 Seconds. The reference range was not used to int erpret this result as normal/abnormal . INR (test code = 6301-6) Nor mal INR <1.1; Warfarin Therap eutic range 2.0 to 3. 0 or 2.5 to 3.5, dep ending upon the indica tions. Lab Interpretation (test Abnormal code = 45791-3) [facility]oundCORONAVIRUS COVID-19 [id number] 10:18:00 Test Item Value Reference Range Interpretation Comments SARS-CoV-2 (test code = Not Detected Not Detected 75225-9) SNOW (test code = SNOW) ID NOW COVID-19 Assay is an isothermal nucleic acid amplification test intended for the qualitative detection of nucleic acid from SARS-CoV-2 viral RNA in nasopharyngeal (FOAMITE MIXER) specimens. It is used under Emergency Use [...] indicated. Lab Interpretation Normal (test code = 10393-7) [facility]RAD, CHEST, 1 VIEW, NON [id number] 07:50:00Reason for exam:->SOBShould this be performed at the bedside?->Yes FINAL REPORT CLINICAL HISTORY: SOB TECHNIQUE: 1 view of the chest. COMPARISON: None IMPRESSION: There is pulmonary vascular congestion with prominent lung markings bilaterally. Subpulmonic pleural effusions cannot be excluded. The cardiomediastinal silhouette is magnified by technique. Signed: Franky Hoyt MDReport Verified Date/Time: 10/03/2018 07:50:47 Reading Location: [facility] Radiology Reading Room [id number] 07:37:00 Test Item Value Reference Range Interpretation Comments MAGNESIUM (BEAKER) (test code = 1.6 mg/dL 1.6-2.6 627) BASIC METABOLIC [id number] 07:37:00 Test Item Value Reference Range Interpretation [...] DIALYSIS PATIEN TS. Specimen slightly ictericHEPATIC FUNCTION [id number] 07:37:00 Test Item Value Reference Range Interpretation [...] 35 U/L 6-55 347) Specimen slightly ictericPROTHROMBIN TIME/[id number] 06:25:00 Test Item Value Reference Range Interpretation [...] mechanical heart valves.CBC W/PLT COUNT & AUTO [id number] 06:16:00 Test Item Value Reference Range Interpretation [...] = 3438) Received comment: User comments: Slide comments:[id number] 05:58:00 Test Item Value Reference Range Interpretation Comments MAGNESIUM (BEAKER) (test code = 1.6 mg/dL 1.6-2.6 627) BASIC METABOLIC [id number] 05:58:00 Test Item Value Reference Range Interpretation [...] DIALYSIS PATIEN TS. Specimen slightly ictericHEPATIC FUNCTION [id number] 05:58:00 Test Item Value Reference Range Interpretation [...] 39 U/L 6-55 347) Specimen slightly ictericPROTHROMBIN TIME/[id number] 05:26:00 Test Item Value Reference Range Interpretation [...] mechanical heart valves.CBC W/PLT COUNT & AUTO [id number] 05:20:00 Test Item Value Reference Range Interpretation [...] WBC 0-0 (test code = 413) VITAMIN [id number] 06:57:00 Test Item Value Reference Range Interpretation Comments VITAMIN B12 (BEAKER) (test code = 178 pg/mL 213-816 L 774) [id number] 06:57:00 Test Item Value Reference Range Interpretation Comments FERRITIN (BEAKER) (test code = 361) 21 ng/mL 5-275 FOLATE, [id number] 06:57:00 Test Item Value Reference Range Interpretation [...] 28 % 20-55 (test code = 2590) [id number] 05:59:00 Test Item Value Reference Range Interpretation Comments MAGNESIUM (BEAKER) (test code = 1.7 mg/dL 1.6-2.6 627) BASIC METABOLIC [id number] 05:59:00 Test Item Value Reference Range Interpretation [...] FOR DIALYSIS PATIEN TS. Specimen slightly ictericLIPID [id number] 05:59:00 Test Item Value Reference Range Interpretation [...] Very High >=190 Specimen slightly ictericHEPATIC FUNCTION [id number] 05:59:00 Test Item Value Reference Range Interpretation [...] = 41 U/L 6-55 347) Specimen slightly [id number] 05:59:00 Test Item Value Reference Range Interpretation Comments LIPASE (BEAKER) (test code = 749) 35 U/L 8-78 Specimen slightly ictericPROTHROMBIN TIME/[id number] 05:58:00 Test Item Value Reference Range Interpretation [...] mechanical heart valves.CBC W/PLT COUNT & AUTO [id number] 05:37:00 Test Item Value Reference Range Interpretation [...] PERCENT (BEAKER) (test code = 2801) POCT-HEMOGLOBIN [id number] 06:12:00 Test Item Value Reference Range Interpretation Comments POC-HEMOGLOBIN METER 8.6 g/dL 12.0-15.[address] [facility] 67[address] (BEAKER) (test code = [place] [address] 1539)"
[2022-06-06] MEDS ORDERED: FENTANYL CITR 100 MCG/2 ML ONE (18:06)
[2022-06-06] MEDS ORDERED: METOCLOPRAMIDE 10 MG/2mL INJ ONE (18:06)
[2022-06-06] MEDS ORDERED: NA CHLORIDE 0.9% 50 ML ONE (18:06)
--- NOTE | 2022-06-06 18:39 | RAD REPORT ---
EXAM DESCRIPTION: [facility] Pa And Lat (2 Views)06/06/2022 6:05 pm CLINICAL HISTORY: back pain COMPARISON: Chest Pa And Lat (2 Views) dated 04/30/2022; Chest Single View dated 01/14/2022; Chest Pa And Lat (2 Views) dated 12/31/2021; Chest Single View dated 09/24/2021 TECHNIQUE: PA and lateral views of the chest. FINDINGS: The lungs are clear. No pneumothorax or effusion. The cardiomediastinal contours are unrem arkable. IMPRESSION: No acute cardiopulmonary process.
[2022-06-06 18:49] LABS: SARS-COV-2 RT PCR NEGATIVE (NEGATIVE)
[2022-06-06 19:55] LABS: Absolute Lymphocytes (CBC) 0.6 K/uL (0.7-4.9); Hematocrit 34.7 % (36.0-45.0); Lymphocytes % 8.6 % (15.3-44.8); MCV 85.9 fL (80-100); MPV 8.7 fL (7.6-11.3); Protime INR 1.34; RBC Red Blood Cell Count 4.04 M/uL (3.86-4.86)
[2022-06-06] MEDS ORDERED: LIDOCAINE 4% PATCH ONE (20:02)
[2022-06-06 20:08] LABS: Albumin 3.8 g/dL (3.4-5.0); Bilirubin Direct 0.8 mg/dL (0-0.2); Bilirubin Total 2.2 mg/dL (0.2-1.0); Magnesium 2.4 mg/dL (1.6-2.4); Potassium 4.2 mmol/L (3.5-5.1); Troponin High Sensitivity 5.4 pg/mL (<58.9)
[2022-06-06 21:30] LABS: Anisocytosis 1+; Blood Morphology Comment NOTED (NOT SEEN); Platelet Estimate DECR; White Blood Cell Scan OK (OK)
--- NOTE | 2022-06-06 22:42 | RAD REPORT ---
EXAM DESCRIPTION: CT - Thorax Wo Con - 06/06/2022 10:23 pm CLINICAL HISTORY: back pain COMPARISON: Thorax W/ Con dated 05/06/2020; Chest For Pe Angio dated 01/13/2019; Chest For Pe Angio da josemanuel 06/14/2018; Thorax Wo Con dated 07/28/2017; Chest Pa And Lat (2 Views) dated 06/06/2022; Abdomen Pe lvis W Contrast dated 03/15/2022 TECHNIQUE: Axial thin cut images of the chest were obtained without IV contrast. Multiplanar reforma ts were generated and reviewed. All CT scans are performed using dose optimization technique as appropriate and may include automated exposure control or mA/KV adjustment according to patient size. FINDINGS: No mass or infiltrate in the lung parenchyma. No pleural thickening or pleural effusion. N o pneumothorax. No abnormal mediastinal or hilar masses or lymphadenopathy seen. No significant aortic or pulmonary a rtery findings. Assessment is limited in the absence of IV contrast. No chest wall mass or abnormal axillary lymphadenopathy. Evaluation of the solid abdominal structures reveals nodular contour of the liver suggesting cirrhoti c change. Patient status post cholecystectomy. Splenomegaly. 3.3 centimeter splenic artery aneurysm w ith thin rim wall calcifications. Evaluation of the soft tissues reveals postsurgical changes in the right breast. IMPRESSION: No acute abnormality in the chest. Stable incidental findings including cirrhotic changes of the liver, splenomegaly, and a 3.3 centimet er splenic artery aneurysm.
--- NOTE | 2022-06-06 23:38 | ER ---
Nurse's Notes [facility] Name: Zenaida Goss Age: 62 yrs Sex: Female : 1960 Arrival Date: 06/06/2022 Time: 17:03 Bed 13 Private MD: Diagnosis: Cough;Dorsalgia, unspecified;Chest pain on breathing Presentation: 06/06 17:06 Chief complaint: Cough, congestion, pain with breathing, and back pain x 4 days. hb Coronavirus screen: At this time, the client does not indicate any symptoms associated with coronavirus-19. Ebola Screen: No symptoms or risks identified at this time. Initial Sepsis Screen: Does the patient meet any 2 criteria? No. Patient's initial sepsis screen is negative. Does the patient have a suspected source of infection? No. Patient's initial sepsis screen is negative. Risk Assessment: Do you want to hurt yourself or someone else? Patient reports no desire to harm self or others. Onset of symptoms was June 02, 2022. 17:06 Method Of Arrival: Ambulatory hb 17:06 Acuity: TANK 3 eh3 Triage Assessment: 19:00 General: Appears in no apparent distress. Behavior is appropriate for age. Pain: ke1 Complains of pain in back. Musculoskeletal: Capillary refill < 3 seconds, Range of motion: intact in all extremities. Historical: - Allergies: 17:08 Demerol; hb 17:08 Dilaudid; hb 17:08 Morphine (Anaphylaxis); hb 17:08 Zofran; hb - PMHx: 17:08 Anemia; breast cancer; ESOPHAGEAL VARACIES; Cirrhosis; fatty liver; Heart Murmur; hb Pancreatitis; polyp; - PSHx: 17:08 Cholecystectomy; Appendectomy; Lumpectomy of breast; right knee surgery; right hb lymphectomy; Total abdominal hysterectomy; - Immunization history:: Adult Immunizations up to date. - Social history:: Smoking status: Patient denies any tobacco usage or history of. Screenin:45 [facility] ED Fall Risk Assessment (Adult) History of falling in the last 3 months, ke1 including since admission No falls in past 3 months (0 pts) Confusion or Disorientation No (0 pts) Intoxicated or Sedated No (0 pts) Impaired Gait No (0 pts) Mobility Assist Device Used No (0 pt) Altered Elimination No (0 pt) Score/Fall Risk Level 0 - 2 = Low Risk. Abuse screen: Denies threats or abuse. Nutritional screening: No deficits noted. Tuberculosis screening: No symptoms or risk factors identified. Assessment: 22:10 Reassessment: Patient is difficult stick unable to get an IV for scan at this time , ke1 charge attempt by lul yo Md to decide what to do next. 22:25 Reassessment: Patient left for scan without contrast. ke1 Vital Signs: 17:06 BP 153 / 73; Pulse 78; Resp 20; Temp 98.5; Pulse Ox 100% on R/A; Weight 105.69 kg; hb Height 5 ft. 4 in. (162.56 cm); Pain 10/10; 20:00 Pain 0/10; ke1 22:13 BP 111 / 54; Pulse 60; Resp 17; Temp 98.4; Pulse Ox 100% on R/A; ke1 23:48 BP 112 / 55; Pulse 62; Resp 17; Temp 98.4; Pulse Ox 100% on R/A; Pain 0/10; ke1 17:06 Body Mass Index 39.99 (105.69 kg, 162.56 cm) hb ED Course: 17:03 Patient arrived in ED. rg4 17:06 June Souza, RN is Primary Nurse. hb 17:08 Triage completed. hb 17:08 Arm band placed on. hb 17:10 Homero Jackson PA is PHCP. cp 17:10 Marcio Stone MD is Attending Physician. cp 17:58 COVID-19/FLU A+B Sent. mm9 18:00 COVID swab sent to lab. mm9 18:01 Patient has correct armband on for positive identification. Placed in gown. Bed in low mm9 position. Call light in reach. Side rails up X 1. 18:07 XRAY Chest Pa And Lat (2 Views) In Process Unspecified. EDMS 18:20 Primary Nurse role handed off by June Souza, ERIC bp 18:20 Zev Burrell, RN is Primary Nurse. bp 18:37 Warm blanket given. Pillow given. monitor technician on. Pulse ox on. NIBP on. mm9 18:37 EKG done, by ED staff, reviewed by Homero GARCIA. mm9 19:45 Inserted saline lock: 24 gauge in left hand, using aseptic technique. bp 20:27 Notified Nurse Practitioner and/or Physician Honing Machine Operator Tool of a critical lab result(s), johnna DDimer of 1057 Homero GARCIA notified. 23:48 No provider procedures requiring assistance completed. IV discontinued. ke1 06/07 02:42 US Extremity Venous W Compression Timbo In Process Unspecified. EDMS Administered Medications: 06/06 19:46 Drug: fentaNYL (PF) 25 mcg Route: IVP; Site: left hand; bp 20:00 Follow up: Pain 0/10 Adult; Response: Pain is decreased ke1 19:46 Drug: Reglan (metoCLOPramide) 10 mg Route: IVP; Site: left hand; bp 20:00 Follow up: Response: Nausea is decreased ke1 20:03 Drug: Lidoderm Patch 5 % (700 mg/patch) 1 patches Route: Topical; Site: affected area; ke1 23:42 Drug: Ketorolac 15 mg Route: IVP; Site: left hand; ke1 23:50 Follow up: Response: Medication administered at discharge. ke1 Medication: 23:48 VIS not applicable for this client. ke1 Outcome: 23:37 Discharge ordered by . nelsy 23:48 Discharged to home ambulatory. ke1 23:48 Condition: good 23:48 Discharge instructions given to patient. 23:50 Patient left the ED. ke1 Signatures: Dispatcher [employer] EDMS Jolene Braun RN Homero Cerda PA PA cp June Souza RN Di Crawford rg4 Zev Burrell RN RN bp Ebrottie, Kouassi, RN RN ke1 Samaria Sheth RN RN eh3 Emily Abbasi mm9 Corrections: (The following items were deleted from the chart) 17:41 17:06 Acuity: TANK 4 hb eh3 22:12 22:10 Reassessment: Patient is difficult stick unable to get an IV for scan at this ke1 time ke1
--- NOTE | 2022-06-06 23:38 | EDPHYS ---
Physician Documentation [facility] Name: Zenaida Goss Age: 62 yrs Sex: Female : 1960 Arrival Date: 06/06/2022 Time: 17:03 Bed 13 Private MD: ED Physician Marcio Stone HPI: 06/06 17:40 This 62 yrs old Female presents to ER via Ambulatory with complaints of Back cp Pain, Congestion. 17:40 The patient presents with pain that is acute, with no known mechanism of injury. cp 17:40 The symptoms are located in the mid and upper back. cp 17:40 Onset: The symptoms/episode began/occurred 4 day(s) ago. Associated signs and symptoms: cp Pertinent positives: chest pain, pain with breathing, productive cough, Pertinent negatives: abdominal pain, constipation, fever. The problem was sustained from unknown cause. Modifying factors: the patient symptoms are aggravated by coughing, breathing. Severity of symptoms: in the emergency department the symptoms are unchanged, despite home interventions. Patient reports recent discharge from hospital after over a week long admission for cirrhosis. Historical: - Allergies: 17:08 Demerol; hb 17:08 Dilaudid; hb 17:08 Morphine (Anaphylaxis); hb 17:08 Zofran; hb - PMHx: 17:08 Anemia; breast cancer; ESOPHAGEAL VARACIES; Cirrhosis; fatty liver; Heart Murmur; hb Pancreatitis; polyp; - PSHx: 17:08 Cholecystectomy; Appendectomy; Lumpectomy of breast; right knee surgery; right hb lymphectomy; Total abdominal hysterectomy; - Immunization history:: Adult Immunizations up to date. - Social history:: Smoking status: Patient denies any tobacco usage or history of. ROS: 17:45 Constitutional: Negative for body aches, chills, fever, poor PO intake. cp 17:45 Eyes: Negative for injury, pain, redness, and discharge. cp 17:45 ENT: Negative for drainage from ear(s), ear pain, sore throat, difficulty swallowing, difficulty handling secretions. 17:45 Cardiovascular: Positive for chest pain, Negative for edema, palpitations. 17:45 Respiratory: Positive for cough, Negative for shortness of breath, wheezing. 17:45 Abdomen/GI: Negative for abdominal pain, nausea, vomiting, and diarrhea. 17:45 : Negative for urinary symptoms. 17:45 Neuro: Negative for altered mental status, numbness, syncope, weakness. 17:45 All other systems are negative. Exam: 17:50 Constitutional: The patient appears in no acute distress, alert, awake, cp non-diaphoretic, non-toxic, well developed, well nourished, obese. 17:50 Head/Face: Normocephalic, atraumatic. cp 17:50 Eyes: Periorbital structures: appear normal, Conjunctiva: normal, no exudate, no injection, Sclera: no appreciated abnormality, Lids and lashes: appear normal, bilaterally. 17:50 ENT: External ear(s): are unremarkable, Nose: is normal, Mouth: Lips: moist, Oral mucosa: pink and intact, moist, Posterior pharynx: Airway: no evidence of obstruction, patent. 17:50 Neck: ROM/movement: is normal, is supple, without pain, no range of motions limitations. 17:50 Chest/axilla: Inspection: normal, Palpation: is normal, no crepitus, no tenderness. 17:50 Cardiovascular: Rate: normal, Rhythm: regular, Edema: ankle edema, that is very mild, JVD: is not appreciated. 17:50 Respiratory: the patient does not display signs of respiratory distress, Respirations: normal, no use of accessory muscles, no retractions, labored breathing, is not present, Breath sounds: bronchial sounds, that are mild, are heard diffusely, stridor, is not appreciated, wheezing: is not appreciated. 17:50 Abdomen/GI: Inspection: obese Bowel sounds: active, all quadrants, Palpation: soft, in all quadrants, mild abdominal tenderness, in all quadrants. 17:50 Back: pain, that is moderate, of the mid and upper back, ROM is normal. 17:50 Neuro: Orientation: to person, place \T\ time. Mentation: is normal, Cerebellar function: is grossly normal, Motor: moves all fours, strength is normal, Sensation: is normal. Vital Signs: 17:06 BP 153 / 73; Pulse 78; Resp 20; Temp 98.5; Pulse Ox 100% on R/A; Weight 105.69 kg; hb Height 5 ft. 4 in. (162.56 cm); Pain 10/10; 20:00 Pain 0/10; ke1 22:13 BP 111 / 54; Pulse 60; Resp 17; Temp 98.4; Pulse Ox 100% on R/A; ke1 23:48 BP 112 / 55; Pulse 62; Resp 17; Temp 98.4; Pulse Ox 100% on R/A; Pain 0/10; ke1 17:06 Body Mass Index 39.99 (105.69 kg, 162.56 cm) hb MDM: 17:25 Patient medically screened. 18:00 Differential diagnosis: pneumonia, pneumothorax, pulmonary edema, pulmonary embolism. 23:22 Data reviewed: vital signs, nurses notes, lab test result(s), EKG, radiologic studies, CT scan, plain films, ultrasound. ED course: US tech reports US lower extremities negative for DVT. 23:36 Consideration of Admission/Observation Escalation of care including admission/observation considered. 23:36 I considered the following discharge prescriptions or medication management in the emergency department Medications were administered in the Emergency Department. See MAR. Test considered but Not performed: CT: chest for pulmonary embolism. Care significantly affected by the following chronic conditions: Liver Disease. Counseling: I had a detailed discussion with the patient and/or guardian regarding: the historical points, exam findings, and any diagnostic results supporting the discharge/admit diagnosis, lab results, radiology results, the need for outpatient follow up, a family practitioner, to return to the emergency department if symptoms worsen or persist or if there are any questions or concerns that arise at home. Response to treatment: the patient's symptoms have markedly improved after treatment, VSS. Pain and cough improved with meds. No signs of respiratory distress, will discharge to home for continued monitoring. 06/06 17:38 Order name: Basic Metabolic Panel; Complete Time: 20:11 06/06 20:13 Interpretation: Normal except: GLUC 114; BUN 23; GFR 89. 06/06 17:38 Order name: CBC with Diff; Complete Time: 22:05 06/06 20:14 Interpretation: Normal except: HGB 11.3; HCT 34.7; PLT 60; RDW 23.5; RAEGAN% 78.0; LYM% cp 8.6; MN% 12.8; LYMA 0.6. 06/06 17:38 Order name: LFT's; Complete Time: 20:11 06/06 20:14 Interpretation: AST 58; ALT 76; ALK 118; BILIT 2.2; BILID 0.8. 06/06 17:38 Order name: Magnesium; Complete Time: 20:11 cp 06/06 17:38 Order name: NT PRO-BNP; Complete Time: 20:11 cp 06/06 20:16 Interpretation: Reviewed. 06/06 17:38 Order name: PT-INR; Complete Time: 22:05 06/06 20:15 Interpretation: PT 14.7; Reviewed. 06/06 17:38 Order name: Troponin HS; Complete Time: 20:11 cp 06/06 17:38 Order name: XRAY Chest Pa And Lat (2 Views); Complete Time: 18:40 cp 06/06 18:40 Interpretation: Report reviewed. 06/06 17:45 Order name: COVID-19/FLU A+B; Complete Time: 19:29 cp 06/06 20:10 Order name: CBC Smear Scan; Complete Time: 22:05 EDMS 06/06 20:15 Order name: LAB Add On 06/06 20:15 Order name: D-Dimer 06/06 20:24 Order name: D-Dimer; Complete Time: 22:05 EDMS 06/06 17:38 Order name: EKG; Complete Time: 17:39 06/06 17:38 Order name: Cardiac monitoring; Complete Time: 18:37 06/06 17:38 Order name: EKG - Nurse/Tech; Complete Time: 18:37 06/06 17:38 Order name: IV Saline Lock; Complete Time: 19:46 06/06 17:38 Order name: Labs collected and sent; Complete Time: 19:46 06/06 17:38 Order name: O2 Per Protocol; Complete Time: 18:08 06/06 17:38 Order name: O2 Sat Monitoring; Complete Time: 18:08 06/06 22:08 Order name: US Extremity Venous W Compression Timbo 06/06 22:12 Order name: CT Chest Wo Con 06/06 22:44 Order name: CT; Complete Time: 23:21 EDMS EC:41 Rate is 61 beats/min. Rhythm is regular. NV interval is normal. QRS interval is cp prolonged at 136 msec. QT interval is normal. T waves are Inverted in leads III, aVR. Interpreted by me. Reviewed by me. Administered Medications: 19:46 Drug: fentaNYL (PF) 25 mcg Route: IVP; Site: left hand; bp 20:00 Follow up: Pain 0/10 Adult; Response: Pain is decreased ke1 19:46 Drug: Reglan (metoCLOPramide) 10 mg Route: IVP; Site: left hand; bp 20:00 Follow up: Response: Nausea is decreased ke1 20:03 Drug: Lidoderm Patch 5 % (700 mg/patch) 1 patches Route: Topical; Site: affected area; ke1 23:42 Drug: Ketorolac 15 mg Route: IVP; Site: left hand; ke1 23:50 Follow up: Response: Medication administered at discharge. ke1 Disposition Summary: 06/06/22 23:37 Discharge Ordered Location: Home cp Problem: new cp Symptoms: have improved cp Condition: Stable cp Diagnosis - Cough cp - Dorsalgia, unspecified cp - Chest pain on breathing cp Followup: cp - With: Private Physician - When: 2 - 3 days - Reason: Recheck today's complaints Discharge Instructions: - Discharge Summary Sheet cp - Acute Back Pain, Adult cp - Nonspecific Chest Pain, Adult cp - Cough, Adult cp Forms: - Medication Reconciliation Form cp - Thank You Letter cp - Antibiotic Education cp - Prescription Opioid Use cp Prescriptions: - Tessalon Perles 100 mg Oral Capsule - take 2 capsule by ORAL route every 8 hours As needed; 30 capsule; Refills: 0, cp Product Selection Permitted - Zithromax Z-Ney 250 mg Oral Tablet - take 1 tablet by ORAL route as directed for 5 days Day 1 - take two (2) tablets cp one time. Day 2, 3, 4 , 5 take one (1) tablet once daily.; 6 tablet; Refills: 0, Product Selection Permitted - Medrol (Ney) 4 mg Oral Tablets, Dose Pack - take 1 tablet by ORAL route as directed - follow package instructions; 1 cp packet; Refills: 0, Product Selection Permitted Addendum: 06/08/2022 07:20 Co-signature as Attending Physician, Marcio Stone MD I reviewed the patient's care r n provided by the Advanced Practice Provider and agree with the diagnosis and treatment plan. Signatures: Dispatcher [employer] EDMS Marcio Stone MD MD rn Page, Corey, PA PA cp June Souza RN RN hb Peltier, Brian, RN RN bp Carmen Alvares, RN RN ke1
[2022-06-06] MEDS ORDERED: KETOROLAC 30 MG/ML INJ ONE (23:43)
[2022-06-07 00:34] VITALS: O2SAT 100
[2022-06-07 00:36] VITALS: TEMP 98.4
[2022-06-07 00:37] VITALS: BP 112/55
--- NOTE | 2022-06-07 11:43 | RAD REPORT ---
EXAM DESCRIPTION: US - Extrem Venous W Compress Timbo - 06/06/2022 10:46 pm CLINICAL HISTORY: 62 years, Female, elevated d-dimer COMPARISON: None. FINDINGS: Grayscale imaging as well as spectral and color Doppler interrogation of the deep venous s ystem of bilateral lower extremity was performed with visualization from the common femoral veins to the popliteal veins and posterior tibial vein. There is normal compressibility, augmentation and flow with no visualized thrombus. No focal fluid collection is identified. IMPRESSION: No bilateral lower extremity DVT. Electronically signed by: Drew Sanz DO 06/06/2022 11:05 PM FLITCH HANGER Due to temporary technical issues with the PACS/Fluency reporting system, reports are being signed by the in house radiologists without review as a courtesy to insure prompt reporting. The interpreting radiologist is fully responsible for the content of the report.
--- NOTE | 2022-06-07 18:40 | EKG ---
Test Date: 2022-06-06 Test Time: 18:18:56 Jewel Inserter: ARMEN MEASUREMENT RESULTS: Intervals: Rate: 61 AL: 142 QRSD: 136 QT: 480 QTc: 483 Harrison: P: 36 AL: 142 QRS: 90 T: 10 INTERPRETIVE STATEMENTS: Normal sinus rhythm Right bundle branch block Abnormal ECG Compared to ECG 01/14/2022 20:24:17 No significant changes Electronically Signed On 06-07-22 18:38:31 CHANGE CONTROL ANALYST by Jonathan Irizarry
== END 2022-06-06 23:50 | disposition home or self-care (01) ==
LOC: ER 17:00
DX: R05.9 Cough, unspecified (principal); R07.1 Chest pain on breathing; M54.9 Dorsalgia, unspecified; Z20.822 Contact with and (suspected) exposure to COVID-19; Z88.5 Allergy status to narcotic agent; Z88.8 Allergy status to other drugs, medicaments and biological substances; Z85.3 Personal history of malignant neoplasm of breast
CPT/HCPCS: 93005; 85025; 80048; 36415; 83735; 85610; 85379; 80076; 84484; 83880; 0240U; 71250; 71046; 93970; 96375; 96374; 99284; J2765; J3010; J2001

== ENCOUNTER 2022-09-01 10:10 | Emergency (ER) | payer OTHER ==
--- OUTSIDE RECORDS SUMMARY | 2022-09-01 10:29 | XMS REPORT | Continuity of Care Document ---
:[address] [facility] t Address [address] [place] [address] Care Team Providers Name Role Phone EUGENIO BECK Primary Care Physician Unavailable Annalise Souza Attending Clinician Unavailable Madhu Miranda Attending Clinician Unavailable Radiology Attending Clinician Unavailable RADIOLOGY Attending Clinician Unavailable Pob, Adc Lab Main Attending Clinician Unavailable Handy Rhoades MD Attending Clinician Sukhdev SOTO Attending Clinician Unavailable Sukhdev Fajardo Attending Clinician NAKIA CRUZ Attending Clinician Unavailable MD WILLIAN SINGLETON Attending Clinician Unavailable Tiffanie Levi MA Attending Clinician Unavailable BEBETO WARD Attending Clinician Unavailable Adama Duarte Attending Clinician Jose Raul Nicole MD Attending Clinician Ramsey FRONT DESK ASSOCIATE, Krystyna Gonzalez Attending Clinician [phone] Bala Macias Attending Clinician Unavailable Alvaro [facility], Aramis Attending Clinician Unavailable Laura Aguilera Attending Clinician Unavailable Carolin Sanches MD Attending Clinician Isaura HENSLEY, Fer Barajas Attending Clinician [phone] Salena FRONT DESK ASSOCIATE, Cecilia Attending Clinician Elmer REYES, Juju Attending Clinician Unavailable MD SHARITA SURESH Attending Clinician Unavail jalen Rodriguez MD, Oneil Attending Clinician Maite HENSLEY, Anand Baron Attending Clinician Ara HENSLEY, Jeremy Desouza Attending Clinician [phone] Verónica HENSLEY, Jeovany Ferro Attending Clinician Estefania Hameed CRNA Attending Clinician [phone] Thomas HENSLEY, Elias Attending Clinician ESTEPHANIA FLOOD Attending Clinician Unavailable Aleena HENSLEY, Estephania Willingham Attending Clinician EMILY SALGADO Attending Clinician Unavailable Damian HENSLEY, Emily Gaytan Attending Clinician Rhoda Erickson RN Attending Clinician Unavailable Stevo Hoskins DO Attending Clinician FLORIAN AYERS Attending Clinician Unavailable Florian Ayers DO Attending Clinician Charline HENSLEY, Rolandoradha Pettit Attending Clinician Aziza Cordero MD Attending Clinician Bebeto Heck MD Attending Clinician Amandeep HENSLEY, Vandana Mae Attending Clinician [phone] Handy Dietrich MD Attending Clinician [phone] Nafisa HENSLEY, Jefferson Lisa Attending Clinician Ronnie HENSLEY, Mahnaz Attending Clinician Feng Burgoskatharine Attending Clinician Doctor Unassigned, [place] Attending Clinician Unavailable [facility], Orthopedic Attending Clinician Unavaildiandra e Ibikunle REMNANTS CUTTER, Folusho F Attending Clinician IBIKUNLAVERNE, FOLUSHO F Attending Clinician Unavailable Frances Cruz RN Attending Clinician Unavailable LEXIE SHEFFIELD Attending Clinician Unavailable Only, Ang Db Test Attending Clinician Unavailable Unknown, Attending Attending Clinician Unavailable GARTH CARLOS Attending Clinician Unavailable Claudia REYES, Madiha M Attending Clinician Rene Evans MD Attending Clinician Shaina Pinto MD Attending Clinician MD NAKIA CRUZ Attending Clinician Unavailable TERRI GERMAN Attending Clinician Unavailable MD SHARITA SURESH Attending Clinician Unavailable MD JEREMY SANDOVAL Attending Clinician Unavailable Lab, [facility] Pob I Attending Clinician Unavailable Dulce Miller Attending Clinician Nasrin REYES, Jovanny Souza Attending Clinician Unavailable SHAINA PINTO Attending Clinician Unavailable AVI DAVEY Attending Clinician Unavailable DRE MAYER Attending Clinician Unavailable WILLIAN SINGLETON Admitting Clinician Unavailable NAKIA CRUZ Admitting Clinician Unavailable SHARITA SURESH Admitting Clinician Unavailable JEREMY SANDOVAL Admitting Clinician Unavailable DO AIMEE WARD Admitting Clinician Unavailable ESTEPHANIA FLOOD Admitting Clinician Unavailable FLORIAN AYERS Admitting Clinician Unavailable BEBETO WARD Admitting Clinician Unavailable DO STEVO HOSKINS Admitting Clinician Unavailable Sukhdev SOTO Admitting Clinician Unavailable SILVIO GREENO F Admitting Clinician Unavailable GARTH CARLOS Admitting Clinician Unavailable Shaina Pinto MD Admitting Clinician MD SHARITA SURESH Admitting Clinician Unavailable MD BEBETO WARD Admitting Clinician Unavailable MD JEREMY SANDOVAL Admitting Clinician Unavailable MD NAKIA CRUZ Admitting Clinician Unavailable SHAINA PINTO Admitting Clinician Unavailable AVI DAVEY Admitting Clinician Unavailable DRE MAYER Admitting Clinician Unavailable Payers Payer Name Policy Type Policy Number Effective Date Expiration Date Dorina blancas [facility] [id number] 2019 CHOICE 00:00:00 Problems Condition Condition Condition Status Onset Resolution Last Treating Co mments Source Name Details Category Date Date Treatment Clinician Date Abdominal Abdominal Disease Active [facility] pain pain 3-15 st 00:00: Hospita 00 l Cirrhosis Cirrhosis Disease Active [facility] of liver of liver 2-13 st without without 00:00: Hospita ascites, ascites, 00 l unspecifie unspecifie d hepatic d hepatic cirrhosis cirrhosis type type Cirrhosis Cirrhosis Disease Active [facility] of liver of liver 05-06 st with with 00:00: Hospita ascites, ascites, 00 l unspecifie unspecifie d hepatic d hepatic cirrhosis cirrhosis type type Hematochez Hematochez Disease Active Overview : Methodi ia ia 05-[address] 00:00: g of this Hospita 00 note l might be different from the original. Added automatic ally from request for surgery [id number] Abdominal Abdominal Disease Active 2021-04 [facility] pain, pain, 17 st unspecifie unspecifie 00:00: Ho spita d d 00 l abdominal abdominal location location Pancreatic Pancreatic Disease Active 2021-04 Overview : Methodi cyst cyst [address] 00:00: g of this Hospita 00 note l might be different from the original. Added automatic ally from request for surgery [id number] Gastritis Gastritis Disease Active Met h[facility] without without 01-02 st bleeding, bleeding, 00:00: [facility] unspecifie unspecifie 00 l d d chronicity chronicity , , unspecifie unspecifie d d gastritis gastritis type type Intractabl Intractabl Disease Active M ethodi e e 12-12 st abdominal abdominal 00:00: [facility] pain pain 00 l Acute Acute Disease Active Methodi upper GI upper GI 818 st bleed bleed 00:00: Hospita 00 l Anemia Anemia Disease Active Overview: Method i [address] 00:00: g of this Hospita 00 note l might be different from the original. Added automatic ally from request for surgery [id number] Pancolitis Pancolitis Disease Active U nivers 6- ity of 00:00: [place] 00 Medical Branch Arrhythmia Arrhythmia Disease Active U nivers 6-21 ity of 00:00: [place] [facility] Ventricula Ventricula Disease Active U nivers r r 09-29 [place] tachycardi tachycardi [place] [facility] Other Other Disease Active Univers cirrhosis cirrhosis 09-29 ity of of liver of liver 00:00: [place] 00 Medical Branch ANAYA ANAYA Disease Active Univers (nonalcoho (nonalcoho 09-29 it y of lic lic 00:00: [place] steatohepa steatohepa 00 Me dical titis) titis) Branch Hypokalemi Hypokalemi Disease Active U nivers a a 6- ity of 00:00: [place] [facility] Acute Acute Disease Active Univers colitis colitis 09-29 ity of 00:00: [place] 00 Medical Branch Abdominal Abdominal Disease Active Met hodi pain, pain, 3 st acute acute 00:00: Hospita 00 l Liver Liver Disease Active Methodi cirrhosis cirrhosis 06-09 st 00:00: Hospita 00 l Epigastric Epigastric Disease Active M ethodi pain pain 3 st 00:00: Hospita 00 l Pancreatit Pancreatit Disease Active 2019-04 M ethodi is due to is due to 05-20 st common common 00:00: [facility]ospita bile duct [...] [place] [facility] Epigastric Epigastric Disease Active [facility] abdominal abdominal 09-30 [facility] pain pain [facility] 00 Center Other Other Disease Recurre [facility] cirrhosis cirrhosis nce 09-30 [facility] of liver of liver 00:00: Medica l 00 Center Increased Increased Disease Recurre [facility] ammonia ammonia nce 09-30 [facility] level level 00:00: Medical 00 Center Intractabl Intractabl Disease Active U [...] of - [facility] right knee right knee [facility] Primary Primary Diagnosis Active 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 of itis of - [facility] left knee left knee [facility] Allergies, Adverse Reactions, Alerts Allergy [...] Active Itching Metho di phone ty to -12 st adverse 00:00: Hospita reaction 00 l s to drug Morphine Propensi Active Other (See 2019-04 Tightness Methodi ty to Comments) [address] adverse 00:00: Hospita reaction 00 l s to drug Latex Propensi Active Rash 2016-[address] [facility] ty to 2-18 [facility] adverse 00:00: Medical reaction 00 Center s LATEX Allergy Active Low Rash 2016-[address] [facility] 2[facility] 00:[facility]: Medical [facility] Center Latex Propensi Active Rash 2016-04 Methodi ty to 2-18 st adverse 00:00: Hospita reaction 00 l s to drug MORPHINE DRUG Active High Anaphylaxis Uni vers INGREDI 3-22 ity of 00:00: [place] [id number] Medical Branch Morphine Propensi Active Shortness Of Throat [facility] ty to Breath, 06-30 closes, [facility] adverse Swelling 00:00: tongue Medical reaction 00 swelling Center s MORPHINE Allergy Active High Sob [facility] 3[facility] 00:[facility]: Medical 00 Center MORPHINE Adverse Active Info Not Commo n Reaction Available [facility] - [facility] Social History Social Habit Start Date Stop Date Quantity Comments Source History SDMS [facility] Drinks History SDOH [facility] Exposure to 2022-08-01 2022-08-11 Not sure University of SARS-CoV-2 00:00:00 10:30:00 [facility] (event) Branch Tobacco use and 2021-11-27 2021-11-27 Smokeless tobacco Me thodist exposure 00:00:00 00:00:00 non-user Hospital History SDOH 2020-03-19 2020-03-19 1 [facility] Frequency 00:00:00 00:00:00 Hospita l Alcohol intake 2018-10-03 2018-10-03 [facility]00:00 non-drinker of Medical Ce nter alcohol (finding) Sex Assigned At [birth year] [facility] [address] [facility] 00:00:00 00:00:00 [facility] Center Smoking Status Start Date Stop Date Source Never smoked tobacco [facility] Medications Ordered Filled Start Stop Current Ordering Indication Dosage Frequency Signature Comments Components Source Medication Medication Date Date Medication? Clinician (SIG) Name Name KCL No 40meq 40 mEq, Univers (KLOR-CON 08-07- Oral, ity of M20) tablet 08:30: 07:30 [place] 1 [place] 40 mEq 00 :00 dose, On Medical Sat Branch 08/07/22 at 0330, Routine ondansetron 2022- No 4mg 4 mg, Slow Univers (ZOFRAN 08-07 IV Push, ity of (PF)) 08:00: 06:56 ONCE, 1 [place] injection 4 00 :00 dose, On Medi molly mg Sat Branch 08/07/22 at 0300, VERN KCL 20 mEq 2022- Yes [id number] 20meq Take 1 Univers tablet 08-07 tablet by ity of 00:00: 04:59 mouth in [place] 00 :00 the [facility] morning Branch and 1 tablet in the evening. Do all this for 3 days. ergocalcife 2022- Yes [id number] Q.5W Take 1 M ethodi rol 07-12-[address] (VITAMIN 00:00: 04:59 (50,000 Hospi ta D2) 50,000 00 :00 Units l unit total) by capsule mouth 2 (two) times a week for 30 days. lipase-prot 2022- Yes .0002U{ Q.[id number] Take 1 Methodi ease-amylas 07-12- lipase} [id number] capsule st e (ZENPEP) 00:00: 04:59 3D (0.0002 Hos alvaro 5,000-17,00 00 :00 units of l 0 -27,000 lipase unit total) by capsule,del mouth 3 ayed (three) release(DR/ times a EC) day with meals for 30 days. multivit Yes 1{tbl} Take 1 Metho di with 4-[address] calcium,iro 11:59: mouth. [facility] n,min 04 l (WOMEN'S DAILY MULTIVITAMI N ORAL) riFAXimin 0 Yes 550mg Q.5D Take 1 Metho di (XIFAXAN) 3-[address] 550 mg 12:00: (550 mg Hospita tablet 11 total) by l mouth 2 (two) times a day. polyethylen 2022-0 Yes 17g Q2D Take 17 g M ethodi e glycol 3-[address] (MIRALAX) 12:00: every Hospita 17 gram 11 other day. l packet spironolact 2022-0 Yes 50mg Q.5D Take 1 Meth dimitri one 3-31 tablet (50 st (ALDACTONE) 12:00: mg total) H ospita 50 MG 11 by mouth 2 l tablet (two) times a day. sucralfate Yes 1g QD Take 10 mL M ethodi (CARAFATE) 07-09 ([address] 100 mg/mL 12:00: total) by Hos alvaro suspension 11 mouth l daily. lipase-prot 2022- No 2{capsu Q.[id number] Take 2 Methodi ease-amylas 07-09 le} [id number] capsules st e (CREON) 10:12: 00:00 3D by mouth 3 H ospita 36,000-114, 45 :00 (three) l 000- times a 180,000 day with unit meals. capsule,del ayed release(DR/ EC) torsemide 2022- Yes 20mg QD Take 1 Metho di (DEMADEX) 07-09 tablet (20 st 20 MG 00:00: 04:59 mg total) Hospit a tablet 00 :00 by mouth l daily for 30 days. lactulose 2022- Yes 20mL Q.25D Take 20 mL Methodi (CHRONULAC) 07-09 by mouth 4 s t 10 gram/15 00:00: 04:59 (four) [facility] mL solution 00 :00 times a l day for 30 days. lipase-prot 2022- No 2{capsu Q.[id number] Take 2 Methodi ease-amylas 07-0903 le} [id number] capsules st e (CREON) 00:00: 00:00 3D by mouth 3 H ospita 36,000-114, 00 :00 (three) l 000- times a 180,000 day with unit meals for capsule,del 30 days. ayed release(DR/ EC) oxyCODONE 2022- No [id number] 5mg Q8H Take 1 Meth dimitri (ROXICODONE 07-01 03-22 tablet (5 st ) 5 MG 16:19: 00:00 mg total) Hospi ta immediate 01 :00 by mouth l release every 8 tablet (eight) hours as needed for severe pain .acute pain. Max Daily Amount: 15 mg methocarbam 2022- No 500mg Q.[id number] Take 1 Methodi oL 07-[id number] (ROBAXIN) 16:19: 00:00 3D (500 mg [facility] 500 MG 01 :00 total) by l tablet mouth 3 (three) times a day as needed for muscle spasms. oxyCODONE Yes [id number] 10mg Q6H Take 2 Metho di (ROXICODONE -[address] ) 5 MG 00:00: (10 mg Hospita immediate 00 total) by l release mouth tablet every 6 (six) hours as needed for severe pain .acute pain. Max Daily Amount: 40 mg pregabalin 0 Yes 75mg Q.5D Take 1 Metho di (LYRICA) 75 06-[address] MG capsule 00:00: (75 mg Hospi ta 00 total) by l mouth 2 (two) times a day. magnesium Yes 400mg QD Take 1 Metho di oxide 06-[address] (MAG-OX) 00:00: (400 mg Hospit a 400 mg 00 total) by l (241.3 mg mouth magnesium) daily. tablet ferrous 2022- Yes 325mg Q48H Take 1 Method i sulfate 325 06-[address] (65 FE) MG 00:00: 04:59 (325 mg Hos alvaro tablet 00 :00 total) by l mouth every other day for 30 days. ondansetron 2022- Yes 4mg Q8H Take 1 Met hodi (Zofran) 4 06-30 tablet (4 st MG tablet 00:00: 04:59 mg total) Ho spita 00 :00 by mouth l every 8 (eight) hours as needed for nausea or vomiting for up to 30 days. methocarbam 0 2022- Yes 500mg Q.47016959 Take 1 Methodi oL 06-[id number] (ROBAXIN) 00:00: 04:59 3D (500 mg [facility] 500 MG 00 :00 total) by l tablet mouth 3 (three) times a day as needed (muscle cramping) for up to 30 days. mometasone- 0 2023- Yes 2{puff} Q.5D Inhale 2 Methodi formoterol 06-30-[address] (Dulera) 00:00: 04:59 (two) Hospita 200-5 00 :00 times a l mcg/actuati day for 30 on inhaler days. pantoprazol 2022- Yes 40mg Q.5D Take 1 Met hodi e 06-30-22 tablet (40 st (PROTONIX) 00:00: 04:59 mg total) H ospita 40 MG EC 00 :00 by mouth 2 l tablet (two) times a day for 30 days. Ventolin 2022- Yes 2{puff} Q4H Inhale 2 M ethodi HFA 90 06-30-[address] mcg/actuati 00:00: 04:59 every 4 Ho spita on inhaler 00 :00 (four) l hours as needed for shortness of breath for up to 30 days. furosemide 2022- No 40mg QD Take 1 Meth dimitri (Lasix) 40 06-30 tablet (40 st mg tablet 00:00: 00:00 mg total) Ho spita 00 :00 by mouth l daily for 30 days. ondansetron 2022- No 4mg Q8H Take 1 Met hodi (Zofran) 4 05-30 tablet (4 st MG tablet 00:00: 00:00 mg total) Ho spita 00 :00 by mouth l every 8 (eight) hours as needed for nausea or vomiting for up to 30 days. oxyCODONE 2022- No [id number] 5mg Q8H Take 1 Meth dimitri (ROXICODONE 05-30- tablet (5 st ) 5 MG 00:00: 05:59 mg total) Hospi ta immediate 00 :00 by mouth l release every 8 tablet (eight) hours as needed for severe pain for up to 10 days .acute pain, chronic pain. Max Daily Amount: 15 mg pantoprazol 2022- No 40mg QD Take 1 Met hodi e -10 -09 tablet (40 st (PROTONIX) 15:57: 00:00 mg total) H ospita 40 MG EC 02 :00 by mouth l tablet daily. ferrous 2022- No 325mg Q48H Take 1 Method i sulfate 325 05-21- tablet st (65 FE) MG 00:00: 00:00 (325 mg Hos alvaro tablet 00 :00 total) by l mouth every other day for 30 days. pantoprazol 2022- No 40mg Q.5D Take 1 Met hodi e 05-20 tablet (40 st (PROTONIX) 00:00: 00:00 mg total) H ospita 40 MG EC 00 :00 by mouth 2 l tablet (two) times a day for 30 days. furosemide 2022-2022- No 40mg QD Take 1 Meth dimitri (Lasix) 40 05-20 tablet (40 st mg tablet 00:00: 00:00 mg total) Ho spita 00 :00 by mouth l daily for 30 days. mometasone- 2022- No 2{puff} Q.5D Inhale 2 Methodi formoterol 05-[address] (Dulera) 00:00: 00:00 (two) Hospita 200-5 00 :00 times a l mcg/actuati day for 30 on inhaler days. methocarbam 2022- No 500mg Q.25D Take 1 M ethodi oL 05-[address] (ROBAXIN) 11:09: 00:00 (500 mg [facility] 500 MG 58 :00 total) by l tablet mouth 4 (four) times a day. alendronate Yes 70mg Q7D Take 1 Meth dimitri (FOSAMAX) 1-12 tablet (70 st 70 MG 00:00: mg total) Hospita tablet 00 by mouth l once a week. Tuesday ipratropium 2022- No 3mL 3 mL, Univ ers -albuteroL 04-16 Inhalation it y of (DUONEB) 02:30: 03:21 , ONCE, 1 [place] 0.5 mg-3 00 :00 dose, On Medical mg(2.5 mg Geraldine 04/15/22 Bran ch base)/3 mL at 2029, nebulizer VERN solution 3 mL furosemide 2022- No 40mg 40 mg, IV U nivers (LASIX) 04-16 Push, ity of injection 02:30: 02:46 ONCE, 1 [place] 40 mg 00 :00 dose, On Medical Geraldine 04/15/22 Branch at 2030, VERN albuterol 2022- No 2.5mg Q4H Take 3 mL M ethodi (ACCUNEB) 04-16 (2.[address] 2.5 mg /3 00:00: 00:00 total) by Ho spita mL (0.083 00 :00 nebulizati l %) on every 4 nebulizer (four) solution hours as needed for shortness of breath. Ventolin 2022-2022- No 2{puff} Q4H Inhale 2 M ethodi HFA 90 04-[address] mcg/actuati 00:00: 00:00 every 4 Ho spita on inhaler 00 :00 (four) l hours as needed for shortness of breath. furosemide 2022-2022- No 20mg Q.5D Take 1 Meth dimitri (LASIX) 20 04-1609 tablet (20 st mg tablet 00:00: 00:00 mg total) Ho spita 00 :00 by mouth 2 l (two) times a day. lactulose 2022-0 Yes 30mL Take 30 mL Un marline 10 gram/15 1-05 by mouth ity o f mL oral 22:09: daily. [place] [id number] Medical Branch pantoprazol 2022-0 Yes 40mg Take 40 mg Univers e 1-05 by mouth ity of (PROTONIX) 22:09: daily. [place] 40 mg EC 04 Medical tablet Branch lactulose 2022-0 Yes 30mL Take 30 mL Un marline 10 gram/15 1-05 by mouth ity o f mL oral 22:09: daily. [place] solution 04 Medical Branch pantoprazol 2022-0 Yes 40mg Take 40 mg Univers e 1-05 by mouth ity of (PROTONIX) 22:09: daily. [place] 40 mg EC 04 Medical tablet Branch lactulose 2022-0 Yes 30mL Take 30 mL Un marline 10 gram/15 1-05 by mouth ity o f mL oral 22:09: daily. [place] solution 04 Medical Branch pantoprazol 2022-0 Yes 40mg Take 40 mg Univers e 1-05 by mouth ity of (PROTONIX) 22:09: daily. [place] 40 mg EC 04 Medical tablet Branch lactulose Yes 30mL Take 30 mL Un marline 10 gram/15 1-05 by mouth ity o f mL oral 22:09: daily. [place] solution 04 Medical Branch pantoprazol Yes 40mg Take 40 mg Univers e 1-05 by mouth ity of (PROTONIX) 22:09: daily. [place] 40 mg EC 04 Medical tablet Branch lactulose 0 Yes 30mL Take 30 mL Un marline 10 gram/15 1-05 by mouth ity o f mL oral 22:09: daily. [place] solution 04 Medical Branch pantoprazol Yes 40mg Take 40 mg Univers e 1-05 by mouth ity of (PROTONIX) 22:09: daily. [place] 40 mg EC 04 Medical tablet Branch albuterol Yes [id number] 2{puff} Inhale 2 Univers 90 1-05 Puffs ity of mcg/actuati 00:00: every 4 [place] as on inhaler 00 (four) Medical hours as Branch needed for Wheezing or Shortness of Breath. albuterol Yes [id number] 2.5mg Inhale 3 Univers 2.5 mg /3 1-05 mL every 4 ity of mL (0.083 00:00: (four) [place] %) 00 hours. May Medical nebulizer also Branch solution nebulize one extra every 6 hours. albuterol Yes [id number] 2{puff} Inhale 2 Univers 90 1-05 Puffs ity of mcg/actuati 00:00: every 4 [place] as on inhaler 00 (four) Medical hours as Branch needed for Wheezing or Shortness of Breath. albuterol Yes [id number] 2.5mg Inhale 3 Univers 2.5 mg /3 1-05 mL every 4 ity of mL (0.083 00:00: (four) [place] %) 00 hours. May Medical nebulizer also Branch solution nebulize one extra every 6 hours. albuterol Yes [id number] 2{puff} Inhale 2 Univers 90 1-05 Puffs ity of mcg/actuati 00:00: every 4 [place] on inhaler 00 (four) Medical hours as Branch needed for Wheezing or Shortness of Breath. albuterol 2022-0 Yes [id number] 2.5mg Inhale 3 Univers 2.5 mg /3 1-05 mL every 4 ity of mL (0.083 00:00: (four) [place] %) 00 hours. May Medical nebulizer also Branch solution nebulize one extra every 6 hours. albuterol 2022-0 Yes [id number] 2{puff} Inhale 2 Univers 90 1-05 Puffs ity of mcg/actuati 00:00: every 4 [place] on inhaler 00 (four) Medical hours as Branch needed for Wheezing or Shortness of Breath. albuterol 2022-0 Yes [id number] 2.5mg Inhale 3 Univers 2.5 mg /3 1-05 mL every 4 ity of mL (0.083 00:00: (four) [place] %) 00 hours. May Medical nebulizer also Branch solution nebulize one extra every 6 hours. albuterol 2022-0 Yes [id number] 2{puff} Inhale 2 Univers 90 1-05 Puffs ity of mcg/actuati 00:00: every 4 [place] as on inhaler 00 (four) Medical hours as Branch needed for Wheezing or Shortness of Breath. albuterol 2022-0 Yes [id number] 2.5mg Inhale 3 Univers 2.5 mg /3 1-05 mL every 4 ity of mL (0.083 00:00: (four) [place] %) 00 hours. May Medical nebulizer also Branch solution nebulize one extra every 6 hours. furosemide 2022-0 2022- No [id number] 20mg Take 1 Univers 20 mg 04-15- tablet by ity of tablet 00:00: 05:59 mouth [place] 00 :00 every Medical morning Branch and evening for 5 days. predniSONE 2022-0 2022- No [id number] 20mg Take 1 Univers 20 mg 04-15-08 tablet by ity of tablet 00:00: 05:59 mouth in [place] 00 :00 the Medical morning Branch and 1 tablet in the evening. Do all this for 2 days. FENTanyl PF 2021-04- No 50ug 50 mcg, Un marline (SUBLIMAZE 12-31 Slow IV ity o f (PF)) 04:30: 03:33 Push, [place] injection 00 :00 ONCE, 1 Medical 50 mcg dose, On Branch 04/09/22 at 2230, VERN cefTRIAXone 2021-04 No 1000mg 1,000 mg, Univers (ROCEPHIN) 04-10 IV ity of 1,000 mg in 03:00: 03:45 [place], [place] NaCl 0.9% 00 :00 ONCE, 1 Medical (NS) 50 mL dose, [facility] 04/09/22 at 2100, Administer over 30 [...] 2100, VERN KCL 10 mEq 2021-04 Yes [id number] 10meq Take 1 Univers tablet 2-30 [id number] tablet by ity of 00:00: mouth in [place] the Medical morning. Branch ciprofloxac 2021-04 Yes [id number] 500mg Take 1 Univers in HCl 500 2-30 [id number] tablet by it y of mg tablet 00:00: mouth [place] the Medical morning Branch and 1 tablet in the evening. KCL 10 mEq 2021-04 Yes [id number] 10meq Take 1 Univers tablet 2-30 [id number] tablet by ity of 00:00: mouth in [place] 00 the Medical morning. [place] ciprofloxac 2021-04 Yes [id number] 500mg Take 1 Univers in HCl 500 2-30 [id number] tablet by it y of mg tablet 00:00: mouth [place] the Medical morning Branch and 1 tablet in the evening. KCL 10 mEq 2021-04 Yes [id number] 10meq Take 1 Univers tablet 2-30 [id number] tablet by ity of 00:00: mouth in [place] 00 the Medical morning. [place] ciprofloxac 2021-04 Yes [id number] 500mg Take 1 Univers in HCl 500 2-30 [id number] tablet by it y of mg tablet 00:00: mouth [place] 00 the Medical morning Branch and 1 tablet in the evening. KCL 10 mEq 2021-04 Yes [id number] 10meq Take 1 Univers tablet 2-30 [id number] tablet by ity of 00:00: mouth in [place] the morning. Branch ciprofloxac 2021-04 Yes [id number] 500mg Take 1 Univers in HCl 500 2-30 [id number] tablet by it y of mg tablet 00:00: [facility] Medical morning Branch and 1 tablet in the evening. KCL 10 mEq 2021-04 Yes [id number] 10meq Take 1 Univers tablet 2-30 [id number] tablet by ity of 00:00: mouth in [place] 00 the morning. Branch ciprofloxac 2021-04 Yes [id number] 500mg Take 1 Univers in HCl 500 2-30 [id number] tablet by it y of mg tablet 00:00: mouth in [place] [facility] 00 the Medical morning Branch and 1 tablet in the evening. KCL 10 mEq 2021-04 Yes [id number] 10meq Take 1 Univers tablet 2-30 [id number] tablet by ity of 00:00: mouth in [place] the morning. Branch ciprofloxac 2021-04 Yes [id number] 500mg Take 1 [facility] in HCl 500 2-30 [id number] tablet by it y of mg tablet 00:00: mouth in [facility] the Medical morning Branch and 1 tablet in the evening. lactulose 2021-04- No 20mL Q.25D Take 20 mL [facility] (CHRONULAC) 2-15 03-31 by mouth 4 s t 10 gram/15 00:00: 00:00 (four) [facility] mL solution 00 :00 times a l day. psyllium 2021-04- No 1{packe Q48H Take 1 [...] 2021-04- No 1{packe Q48H Take 1 Met racheli obiek [...] times a day. lipase-prot 2021-04 Yes 1{capsu Q.[id number] Take 1 [facility] 1-19 le} [id number] capsule by st e (CREON) 18:47: 3D [...] times a day. lipase-prot 2021-04 Yes 1{capsu Q.[id number] Take 1 [facility] 1-19 le} [id number] capsule by st e (CREON) 18:47: 3D [...] times a day. lipase-prot 2021-04 Yes 1{capsu Q.[id number] Take 1 [facility] 1-19 le} [id number] capsule by st e (CREON) 18:47: 3D [...] 500mg Q.25D Take 1 Me thodi oL -[address] (ROBAXIN) 18:47: (500 mg Hospi ta 500 MG 48 total) by l tablet mouth 4 (four) times a day. lipase-prot 2021-04 Yes 1{capsu Q.[id number] Take 1 [facility] -19 le} [id number] capsule by st e (CREON) 18:47: 3D [...] Tue02/16/22 at 1200, Routine iopamidol 2021-04- No [id number] 74mL 74 mL, U nivers (ISOVUE 04-17 [...] 02/15/22 at 1500, Routine ondansetron 2021-04 Yes [id number] 4mg Take 1 [facility] 4 mg -07 tablet by ity of disintegrat 00:00: mouth [place] ing tablet 00 every 8 Medica l (eight) Branch hours as needed for Nausea and Vomiting (N/V). dicyclomine 2021-04 Yes [id number] 20mg Take 1 [facility] 20 mg 1-07 tablet by ity of tablet 00:00: mouth 4 [place] (four) Medical times Branch daily. loperamide 2021-04 Yes [id number] 2mg Take 1 [facility] 2 mg 1-07 capsule by ity of capsule 00:00: mouth [place] 00 every 4 Medical (four) Branch hours as needed for Diarrhea. Not to exceed 16mg daily. ondansetron 2021-04 Yes [id number] 4mg Take 1 [facility] 4 mg 1-07 tablet by ity of disintegrat 00:00: mouth [place] ing tablet 00 every 8 Medica l (eight) Branch hours as needed for Nausea and Vomiting (N/V). dicyclomine 2021-04 Yes [id number] 20mg Take 1 [facility] 20 mg 1-07 tablet by ity of tablet 00:00: mouth 4 (four) Medical times Branch daily. loperamide 2021-04 Yes [id number] 2mg Take 1 [facility] 2 mg 1-07 capsule by ity of capsule 00:00: mouth [place] 00 every 4 Medical (four) Branch hours as needed for Diarrhea. Not to exceed 16mg daily. ondansetron 2021-04 Yes [id number] 4mg Take 1 [facility] 4 mg 1-07 tablet by ity of disintegrat 00:00: mouth [place] ing tablet 00 every 8 Medica l (eight) Branch hours as needed for Nausea and Vomiting (N/V). dicyclomine 2021-04 Yes [id number] 20mg Take 1 [facility] 20 mg 1-07 tablet by ity of tablet 00:00: mouth 4 (four) Medical times Branch daily. loperamide 2021-04 Yes [id number] 2mg Take 1 [facility] 2 mg 1-07 capsule by ity of capsule 00:00: mouth [place] 00 every 4 Medical (four) Branch hours as needed for Diarrhea. Not to exceed 16mg daily. ondansetron 2021-04 Yes [id number] 4mg Take 1 [facility] 4 mg 1-07 tablet by ity of disintegrat 00:00: mouth [place] ing tablet 00 every 8 Medica l (eight) Branch hours as needed for Nausea and Vomiting (N/V). dicyclomine 2021-04 Yes [id number] 20mg Take 1 [facility] 20 mg 1-07 tablet by ity of tablet 00:00: mouth 4 [place] (four) Medical times Branch daily. loperamide 2021-04 Yes [id number] 2mg Take 1 [facility] 2 mg 1-07 capsule by ity of capsule 00:00: mouth [place] 00 every 4 Medical (four) Branch hours as needed for Diarrhea. Not to exceed 16mg daily. ondansetron 2021-04 Yes [id number] 4mg Take 1 [facility] 4 mg 1-07 tablet by ity of disintegrat 00:00: mouth [place] ing tablet 00 every 8 Medica l (eight) Branch hours as needed for Nausea and Vomiting (N/V). dicyclomine 2021-04 Yes [id number] 20mg Take 1 [facility] 20 mg 1-07 tablet by ity of tablet 00:00: mouth 4 [place] 00 (four) Medical times Branch daily. loperamide 2021-04 Yes [id number] 2mg Take 1 [facility] 2 mg 1-07 capsule by ity of capsule 00:00: mouth [place] 00 every 4 Medical (four) Branch hours as needed for Diarrhea. Not to exceed 16mg daily. ondansetron 2021-04 Yes [id number] 4mg Take 1 [facility] 4 mg 1-07 tablet by ity of disintegrat 00:00: mouth [place] ing tablet 00 every 8 Medica l (eight) Branch hours as needed for Nausea and Vomiting (N/V). dicyclomine 2021-04 Yes [id number] 20mg Take 1 [facility] 20 mg 1-07 tablet by ity of tablet 00:00: mouth 4 [place] 00 (four) Medical times Branch daily. loperamide 2021-04 Yes [id number] 2mg Take 1 [facility] 2 mg 1-07 capsule by ity of capsule 00:00: mouth [place] 00 every 4 Medical (four) Branch hours as needed for Diarrhea. Not to exceed 16mg daily. ondansetron 2021-04 Yes [id number] 4mg Take 1 [facility] 4 mg 1-07 tablet by ity of disintegrat 00:00: mouth [place] ing tablet 00 every 8 Medica l (eight) Branch hours as needed for Nausea and Vomiting (N/V). dicyclomine 2021-04 Yes [id number] 20mg Take 1 [facility] 20 mg 1-07 tablet by ity of tablet 00:00: mouth 4 [place] 00 (four) Medical times Branch daily. loperamide 2021-04 Yes [id number] 2mg Take 1 [facility] 2 mg 1-07 capsule by ity of capsule 00:00: mouth [place] 00 every 4 Medical (four) Branch hours as needed for Diarrhea. Not to exceed 16mg daily. furosemide 2021-04 No 40mg Q.5D Take 1 [facility] dimitri (Lasix) 40 0-27 -27 tablet (40 st mg tablet 00:00: 05:59 [...] QD Take 1 Met hodi e 0-27 11-27 tablet (40 st (PROTONIX) 00:00: 05:59 mg [...] Take 1 Meth dimitri (Lasix) 40 0-27 - tablet (40 st mg tablet 00:00: 05:59 [...] No 1{capsu QD Take 1 [facility] sulfate - le} capsule by st (ZINCATE) 00:00: [...] Q.25D Take 10 mL [facility] (CARAFATE) 0- 11-27 ([address] 100 mg/mL 00:00: [...] Q.25D Take 10 mL [facility] (CARAFATE) 0-27 -27 ([address] 100 mg/mL 00:00: 05:59 [...] -acetaminop 0-27 11-[address] hen (NORWA) 00:00: 05:59 mouth [facility] 10-325 mg 00 :00 every 4 l per tablet (four) hours as needed for severe pain for up to 10 days .acute pain. Max Daily Amount: 6 tablets HYDROcodone 2021-04 1{tbl} Q4H Take 1 [facility] -acetaminop 0-27 11-[address] hen (GILMAN) 00:00: 05:59 mouth [facility] 10-325 mg 00 :00 every 4 l per tablet (four) hours as needed for severe pain for up to 10 days .acute pain. Max Daily Amount: 6 tablets HYDROcodone 2021-04 1{tbl} Q4H Take 1 [facility] -acetaminop 0-27 11-[address] hen (GILMAN) 00:00: 05:59 mouth [facility] 10-325 mg 00 :00 every 4 l per tablet (four) hours as needed for severe pain for up to 10 days .acute pain. Max Daily Amount: 6 tablets HYDROcodone 2021-04 1{tbl} Q4H Take 1 [facility] -acetaminop 0-27 11-[address] hen (GILMAN) 00:00: 05:59 mouth [facility] 10-325 mg 00 :00 every 4 l per tablet (four) hours as needed for severe pain for up to 10 days .acute pain. Max Daily Amount: 6 tablets HYDROcodone 2021-04 1{tbl} Q4H Take 1 [facility] -acetaminop 0-27 11-[address] hen (GILMAN) 00:00: 05:59 mouth [facility] 10-325 mg [...] 2 l (two) times a day. famotidine 2021-04- No 20mg Q.5D Take 1 Meth dimitri (PEPCID) 20 0-12 02-09 tablet (20 s t MG tablet 00:00: 00:00 mg total) [facility] 00 :00 by mouth 2 l (two) times a day. riFAXimin 2022-0 Yes [...] mouth 2 (two) times a day. polyethylen 2022-0 2022- No 17g QD Take [...] Q.25D Take 30 mL [facility] 20 gram/30 9- 10-27 ([address] mL solution 00:00: [...] 1g Q.25D Take 10 mL [facility] (CARAFATE) - 10-27 ([address] 100 mg/mL 00:00: 04:59 total) by Ho [facility] suspension 00 :00 mouth 4 l (four) times a day before meals and nightly for 30 days. zinc 2021- No 1{capsu QD Take 1 [facility] sulfate -03 02- le} capsule by st (ZINCATE) 00:00: 04:59 [...] 1g Q.25D Take 10 mL [facility] (CARAFATE) - 10-27 ([address] 100 mg/mL 00:00: 04:59 total) by Ho sp[facility] suspension 00 :00 mouth 4 l (four) times a day before meals and nightly for 30 days. zinc 2021-2021- No 1{capsu QD Take 1 [facility] sulfate -03 02- le} capsule by st (ZINCATE) 00:00: 04:59 mouth [facility] 50 mg zinc 00 :00 daily for l (220 mg) 30 days. capsule lactulose 2021-2021- No 20g Q.25D Take 30 mL [facility] 20 gram/30 -03 02-27 ([address] mL solution 00:00: 00:00 [...] 1g Q.25D Take 10 mL [facility] (CARAFATE) 01-04-27 ([address] 100 mg/mL 00:00: 00:00 total) by Ho sp[facility] suspension 00 :00 mouth 4 l (four) times a day before meals and nightly for 30 days. zinc 2021-2021- No 1{capsu QD Take 1 [facility] sulfate - 10- le} capsule by st (ZINCATE) 00:00: 00:00 mouth [facility] 50 mg zinc 00 :00 daily for l (220 mg) 30 days. capsule lactulose 2021-2021- No 20g Q.25D Take 30 mL [facility] 20 gram/30 - 10-27 ([address] mL solution 00:00: [...] -03 02- tablet (50 st (ALDACTONE) 00:00: 00:00 mg [...] 01-04- le} capsule by st (ZINCATE) 00:00: 00:00 mouth [facility] 50 mg zinc 00 :00 daily for l (220 mg) 30 days. capsule lactulose 2021- No 20g Q.25D Take 30 mL [facility] 20 gram/30 -03 02-27 ([address] mL solution 00:00: 00:00 [...] -03 02- tablet (40 st (PROTONIX) 00:00: 00:00 mg total) H [facility] 40 MG EC 00 :00 by mouth l tablet daily for 30 days. spironolact 0 2021- No 50mg Q.5D Take 1 Met hodi one - 10-27 tablet (50 st (ALDACTONE) 00:00: 00:00 mg total) Hospita 50 MG 00 :00 by mouth 2 l tablet (two) times a day for 30 days. sucralfate 2021-0 2021- No 1g Q.25D Take 10 mL [facility] (CARAFATE) 01-04 10-27 ([address] 100 mg/mL 00:00: [...] times a day. pancrelipas 2021- No 2{capsu Q.[id number] Take 2 [facility] e, 12-18 le} [id number] capsules st lipase-prot 00:00: 04:59 3D by mouth 3 [facility] 00 :00 (three) l e, (CREON) times a 6,000-19,00 day with 0 -30,000 meals for unit 30 days. capsule,del ayed release(DR/ EC) capsule methocarbam 2021- No 500mg Q.97292515 Take 1 [facility] oL 12-[id number] (ROBAXIN) 00:00: 04:59 3D (500 mg [facility] 500 MG 00 :00 total) by l tablet mouth 3 (three) times a day as needed (abdominal cramping) for up to 30 days. pancrelipas 2021- No 2{capsu Q.[id number] Take 2 [facility] e, 12-18 le} [id number] capsules st lipase-prot 00:00: 04:59 3D by mouth 3 [facility] 00 :00 (three) l e, (CREON) times a 6,000-19,00 day with 0 -30,000 meals for unit 30 days. capsule,del ayed release(DR/ EC) capsule methocarbam 2021- No 500mg Q.34696127 Take 1 [facility] oL 12-[id number] (ROBAXIN) 00:00: 04:59 3D (500 mg [facility] 500 MG 00 :00 total) by l tablet mouth 3 (three) times a day as needed (abdominal cramping) for up to 30 days. pancrelipas 2021- No 2{capsu Q.98420211 Take 2 [facility] e, 12-18 le} [id number] capsules st lipase-prot 00:00: 04:59 3D by mouth 3 [facility] 00 :00 (three) l e, (CREON) times a 6,000-19,00 day with 0 -30,000 meals for unit 30 days. capsule,del ayed release(DR/ EC) capsule methocarbam 2021- No 500mg Q.00984188 Take 1 [facility] oL 12-[id number] (ROBAXIN) 00:00: 04:59 3D (500 mg [facility] 500 MG 00 :00 total) by l tablet mouth 3 (three) times a day as needed (abdominal cramping) for up to 30 days. pancrelipas 2021- No 2{capsu Q.67381041 Take 2 [facility] e, 12-18 le} [id number] capsules st lipase-prot 00:00: 04:59 3D by mouth 3 [facility] 00 :00 (three) l e, (CREON) times a 6,000-19,00 day with 0 -30,000 meals for unit 30 days. capsule,del ayed release(DR/ EC) capsule methocarbam 2021- No 500mg Q.08311540 Take 1 [facility] oL 12-[id number] (ROBAXIN) 00:00: 04:59 3D (500 mg [facility] 500 MG 00 :00 total) by l tablet mouth 3 (three) times a day as needed (abdominal cramping) for up to 30 days. pancrelipas 2021- No 2{capsu Q.82919382 Take 2 [facility] e, 12-18 le} [id number] capsules st lipase-prot 00:00: 04:59 3D by mouth 3 [facility] 00 :00 (three) l e, (CREON) times a 6,000-19,00 day with 0 -30,000 meals for unit 30 days. capsule,del ayed release(DR/ EC) capsule methocarbam 0 2021- No 500mg Q.65130431 Take 1 [facility] oL 12-[id number] (ROBAXIN) 00:00: 04:59 3D (500 mg [facility] 500 MG 00 :00 total) by l tablet mouth 3 (three) times a day as needed (abdominal cramping) for up to 30 days. pancrelipas 2021- No 2{capsu Q.94117814 Take 2 [facility] e, 12-18 le} [id number] capsules st lipase-prot 00:00: 04:59 3D by mouth 3 [facility] 00 :00 (three) l e, (CREON) times a 6,000-19,00 day with 0 -30,000 meals for unit 30 days. capsule,del ayed release(DR/ EC) capsule methocarbam 2021- No 500mg Q.56325459 Take 1 [facility] oL 12-[id number] (ROBAXIN) 00:00: 04:59 3D (500 mg [facility] 500 MG 00 :00 total) by l tablet mouth 3 (three) times a day as needed (abdominal cramping) for up to 30 days. pancrelipas 2021- No 2{capsu Q.89568453 Take 2 [facility] e, 12-18 le} [id number] capsules st lipase-prot 00:00: 04:59 3D by mouth 3 [facility] 00 :00 (three) l e, (CREON) times a 6,000-19,00 day with 0 -30,000 meals for unit 30 days. capsule,del ayed release(DR/ EC) capsule methocarbam 0 2021- No 500mg Q.[id number] Take 1 [facility] o[facility] 12-[id number] (ROBAXIN) 00:00: 04:59 3D (500 mg [facility] 500 MG 00 :00 total) by l tablet mouth 3 (three) times a day as needed (abdominal cramping) for up to 30 days. pancrelipas No 2{capsu Q.99538559 Take 2 [facility] e, 12-18 le} [id number] capsules st lipase-prot 00:00: 04:59 3D by mouth 3 [facility] 00 :00 (three) l e, (CREON) times a 6,000-19,00 day with 0 -30,000 meals for unit 30 days. capsule,del ayed release(DR/ EC) capsule methocarbam No 500mg Q.55041290 Take 1 [facility] oL 12-[id number] (ROBAXIN) 00:00: 04:59 3D (500 mg [facility] 500 MG 00 :00 total) by l tablet mouth 3 (three) times a day as needed (abdominal cramping) for up to 30 days. HYDROcodone 1{tbl} Q6H Take 1 [facility] -acetaminop 12-[address] [place] ([employer] [facility]) 00:00: 00:00 mouth [facility] 10-325 mg 00 :00 every 6 l per tablet (six) hours as needed for severe pain for up to 10 days .acute pain. Max Daily Amount: 4 tablets HYDROcodone 1{tbl} Q6H Take 1 [facility] -acetaminop 12-[address] [place] ([employer]) 00:00: 00:00 mouth [facility] 10-325 mg 00 :00 every 6 l per tablet (six) hours as needed for severe pain for up to 10 days .acute pain. Max Daily Amount: 4 tablets HYDROcodone No 1{tbl} Q6H Take 1 [facility] -acetaminop 12-[address] [place] ([employer]) 00:00: 00:00 mouth [facility] 10-325 mg 00 :00 every 6 l per tablet (six) hours as needed for severe pain for up to 10 days .acute pain. Max Daily Amount: 4 tablets HYDROcodone No 1{tbl} Q6H Take 1 [facility] -acetaminop 12-[address] [place] ([employer]) 00:00: 00:00 mouth [facility] 10-325 mg 00 :00 every 6 l per tablet (six) hours as needed for severe pain for up to 10 days .acute pain. Max Daily Amount: 4 tablets HYDROcodone 2022-0 2022- No [id number] 1{tbl} Q6H Take 1 [facility] -acetaminop 12-[address] [facility] ([place]) 00:00: 00:00 mouth [facility] 10-325 mg 00 :00 every 6 l per tablet (six) hours as needed for severe pain for up to 10 days .acute pain. Max Daily Amount: 4 tablets HYDROcodone 2022-0 2021- [place] [id number] 1{tbl} Q6H Take 1 [facility] -acetaminop 12-18 tablet by [facility] ([place]) 00:00: 00:00 mouth [facility] 10-325 mg 00 :00 every 6 l per tablet (six) hours as needed for severe pain for up to 10 days .acute pain. Max Daily Amount: 4 tablets HYDROcodone 2022-0 2021- No [id number] 1{tbl} Q6H Take 1 [facility] -acetaminop 12-18 tablet by [facility] ([place]) 00:00: 00:00 mouth [facility] 10-325 mg 00 :00 every 6 l per tablet (six) hours as needed for severe pain for up to 10 days .acute pain. Max Daily Amount: 4 tablets HYDROcodone 2022-0 2021- [place] [id number] 1{tbl} Q6H Take 1 [facility] -acetaminop 12-[address] [place] ([place]) 00:00: 04:59 mouth [facility] 10-325 mg 00 :00 every 6 l per tablet (six) hours as needed for severe pain for up to 10 days .acute pain. Max Daily Amount: 4 tablets riFAXimin 2-0 Yes 550mg Q.5D Take 1 [facility] (XIFAXAN) 8-[address] 550 mg 14:06: (550 mg Hospita tablet 05 total) by l mouth 2 (two) times a day. pantoprazol 2-0 2- No 40mg QD Take 1 Met hodi e 8-26 08-25 tablet (40 st (PROTONIX) 14:06: 00:00 [...] (220 mg) 30 days. capsule lactulose 2021-0 2- No 20g Q24H Take [...] for up to 30 days. ondansetron 2021-0 2022- No 4mg Q8H Take 1 Met hodi ODT 12-03- tablet (4 st (ZOFRAN-ODT 00:00: 00:00 mg [...] vomiting for up to 30 days. furosemide 2021- No 40mg Q.5D [...] a day for 30 days. sucralfate 2021-0 202- No 1g Q.25D Take 10 mL [facility] [...] times a day for 30 days. sucralfate 202-0 2022- No 1g Q.25D Take 10 mL [...] vomiting for up to 30 days. sucralfate 2021-2021- No 1g Q.25D [...] 4mg Q8H Take 1 Met hodi ODT 12-03- tablet (4 st (ZOFRAN-ODT 00:00: 04:59 mg [...] meals and nightly for 30 days. HYDROcodone 2-0 2021- [place] [id number] 1{tbl} Q6H Take 1 [facility] -acetaminop 8-25 -[address] [facility] ([employer] [facility]) 00:00: 00:00 mouth [facility] 10-325 mg 00 :00 every 6 l per tablet (six) hours as needed for severe pain for up to 10 days .acute pain. Max Daily Amount: 4 tablets HYDROcodone 2021-0 2021- No [id number] 1{tbl} Q6H Take 1 [facility] -acetaminop 8-25 - tablet by [facility] ([employer] [facility]) 00:00: 00:00 mouth [facility] 10-325 mg 00 :00 every 6 l per tablet (six) hours as needed for severe pain for up to 10 days .acute pain. Max Daily Amount: 4 tablets HYDROcodone 2021-0 2021- No [id number] 1{tbl} Q6H Take 1 [facility] -acetaminop 8-25 - tablet [facility] ([employer] [facility]) 00:00: 00:00 mouth [facility] 10-325 mg 00 :00 every 6 l per tablet (six) hours as needed for severe pain for up to 10 days .acute pain. Max Daily Amount: 4 tablets HYDROcodone 2021-0 2021- No [id number] 1{tbl} Q6H Take 1 [facility] -acetaminop 8-25 - tablet [facility] ([employer] [facility]) 00:00: 00:00 mouth [facility] 10-325 mg 00 :00 every 6 l per tablet (six) hours as needed for severe pain for up to 10 days .acute pain. Max Daily Amount: 4 tablets HYDROcodone 2-0 2021- No [id number] 1{tbl} Q6H Take 1 [facility] -acetaminop 8-25 -[address] [facility] ([employer] [facility]) 00:00: 00:00 mouth [facility] 10-325 mg 00 :00 every 6 l per tablet (six) hours as needed for severe pain for up to 10 days .acute pain. Max Daily Amount: 4 tablets HYDROcodone 2022-0 2021- No [id number] 1{tbl} Q6H Take 1 [facility] -acetaminop 8-25 -[address] [facility] ([employer]) 00:00: 00:00 mouth [facility] 10-325 mg 00 :00 every 6 l per tablet (six) hours as needed for severe pain for up to 10 days .acute pain. Max Daily Amount: 4 tablets HYDROcodone No 1{tbl} Q6H Take 1 [facility] -acetaminop 8-25 09-[address] [place] ([place]) 00:00: 00:00 mouth [facility] 10-325 mg 00 :00 every 6 l per tablet (six) hours as needed for severe pain for up to 10 days .acute pain. Max Daily Amount: 4 tablets HYDROcodone 2021-2021- No [id number] 1{tbl} Q6H Take 1 [facility] -acetaminop 8-25 09-09 tablet by [facility] ([place]) 00:00: 00:00 mouth [facility] 10-325 mg 00 :00 every 6 l per tablet (six) hours as needed for severe pain for up to 10 days .acute pain. Max Daily Amount: 4 tablets HYDROcodone No 1{tbl} Q6H Take 1 [facility] -acetaminop 8-25 09-05 tablet by [facility] ([place]) 00:00: 04:59 mouth [facility] 10-325 mg 00 :00 every 6 l per tablet (six) hours as needed for severe pain for up to 10 days .acute pain. Max Daily Amount: 4 tablets pancrelipas 2021- No 1{capsu Q.[id number] Take 1 [facility] e, 11-26 08-18 le} [id number] capsule by lipase-prot 20:41: 00:00 3D mouth 3 [facility] 22 :00 (three) l e, (CREOND) times a 12,000-38,0 day with 00 -60,000 meals. unit capsule,del ayed release(DR/ EC) capsule pancrelipas 2021- No 1{capsu Q.59324581 Take 1 [facility] e, 8-18 08-18 le} [id number] capsule by lipase-prot 20:41: 00:00 3D mouth 3 [facility] 22 :00 (three) l e, (CREOND) times a 12,000-38,0 day with 00 -60,000 meals. unit capsule,del ayed release(DR/ EC) capsule pancrelipas 2-2- No 1{capsu Q.[id number] Take 1 [facility] e, 8-18 08-18 le} [id number] capsule by st lipase-prot 20:41: 00:00 3D mouth 3 [facility] 22 :00 (three) l e, (CREOND) times a 12,000-38,0 day with 00 -60,000 meals. unit capsule,del ayed release(DR/ EC) capsule pancrelipas 2021-2- No 1{capsu Q.27023763 Take 1 [facility] e, 8-18 08-18 le} [id number] capsule by st lipase-prot 20:41: 00:00 3D mouth 3 [facility] 22 :00 (three) l e, (CREOND) times a 12,000-38,0 day with 00 -60,000 meals. unit capsule,del ayed release(DR/ EC) capsule pancrelipas 2021-2- No 1{capsu Q.[id number] Take 1 [facility] e, 8-18 08-18 le} [id number] capsule by st lipase-prot 20:41: 00:00 3D mouth 3 [facility] 22 :00 (three) l e, (CREOND) times a 12,000-38,0 day with 00 -60,000 meals. unit capsule,del ayed release(DR/ EC) capsule pancrelipas 2021-2- No 1{capsu Q.43379945 Take 1 Method[facility] e, 8-18 08-18 le} [id number] capsule by st lipase-prot 20:41: 00:00 3D mouth 3 [facility] 22 :00 (three) l e, (CREOND) times a 12,000-38,0 day with 00 -60,000 meals. unit capsule,del ayed release(DR/ EC) capsule pancrelipas 2021-0 2- No 1{capsu Q.[id number] Take 1 Method[facility] e, 8-18 08-18 le} [id number] capsule by st lipase-prot 20:41: 00:00 3D mouth 3 [facility] 22 :00 (three) l e, (CREOND) times a 12,000-38,0 day with 00 -60,000 meals. unit capsule,del ayed release(DR/ EC) capsule pancrelipas 2021-0 2021- No 1{capsu Q.02703999 Take 1 Method[facility] e, 8-18 08-18 le} [id number] capsule by st lipase-prot 20:41: 00:00 3D mouth 3 [facility] 22 :00 (three) l e, (CREOND) times a 12,000-38,0 day with 00 -60,000 meals. unit capsule,del ayed release(DR/ EC) capsule pancrelipas 2021-0 2021- No 1{capsu Q.50619703 Take 1 [facility] e, 8-18 08-18 le} [id number] capsule by st lipase-prot 20:41: 00:00 3D mouth 3 [facility] 22 :00 (three) l e, (CREOND) times a 12,000-38,0 day with 00 -60,000 meals. unit capsule,del ayed release(DR/ EC) capsule spironolact 2-0 2021- No 25mg QD Take 25 mg [facility] one 7-18 07-[address] (ALDACTONE) 14:44: 00:00 daily. Hos alvaro 25 MG 06 :00 l tablet furosemide 2021-2021- No 20mg QD Take 20 mg [facility] (LASIX) 20 7-18 07-[address] mg tablet 14:44: 00:00 daily. Hospi ta 06 :00 l spironolact 2021-0 202- No 25mg QD Take 25 mg [facility] one 7-18 07-[address] (ALDACTONE) 14:44: 00:00 daily. Hos alvaro 25 MG 06 :00 l tablet furosemide 2021-0 202- No 20mg QD Take 20 mg [facility] (LASIX) 20 7-18 07-[address] mg tablet 14:44: 00:00 daily. Hospi ta 06 :00 l spironolact 2022-0 2022- No 25mg QD Take 25 mg [facility] one 7-18 07-[address] (ALDACTONE) 14:44: 00:00 daily. Hos alvrao 25 MG 06 :00 l tablet furosemide [...] 25 MG 06 :00 l tablet furosemide 2021-2021- No 20mg QD Take 20 mg [facility] (LASIX) 20 10-[address] mg tablet 14:44: 00:00 [...] 2021-2021- No 1{tbl} 1 tablet, [facility] en-codeine 09-29 [...] Tue Branch 09/29/21 at 0100, Routine naproxen 0 Yes [id number] 500mg Take 1 [facility] (NAPROSYN) 6-20 9104 tablet by ity of 500 mg 00:00: mouth 2 [place] tablet 00 (two) Medical times Branch daily with meals. naproxen 2021-0 Yes [id number] 500mg Take 1 [facility] (NAPROSYN) 6-20 9104 tablet by ity of 500 mg 00:00: mouth 2 [place] tablet 00 (two) Medical times Branch daily with meals. naproxen 2021-0 Yes [id number] 500mg Take 1 [facility] (NAPROSYN) 6-20 9104 tablet by ity of 500 mg 00:00: mouth 2 [place] tablet 00 (two) Medical times Branch daily with meals. naproxen 0 Yes [id number] 500mg Take 1 [facility] (NAPROSYN) 6-20 9104 tablet by ity of 500 mg 00:00: mouth 2 [place] tablet 00 (two) Medical times Branch daily with meals. naproxen 2021-0 Yes [id number] 500mg Take 1 [facility] (NAPROSYN) 6-20 9104 tablet by ity of 500 mg 00:00: mouth 2 [place] tablet 00 (two) Medical times Branch daily with meals. naproxen 2021-0 Yes [id number] 500mg Take 1 [facility] (NAPROSYN) 6-20 9104 tablet by ity of 500 mg 00:00: mouth 2 [place] tablet 00 (two) Medical times Branch daily with meals. naproxen 2021-0 Yes [id number] 500mg Take 1 [facility] (NAPROSYN) 6-20 9104 tablet by ity of 500 mg 00:00: mouth 2 [place] tablet 00 (two) Medical times Branch daily with meals. naproxen 2021-0 Yes [id number] 500mg Take 1 [facility] (NAPROSYN) 6-20 9104 [...] 30mg 30 mg, Unive rs (TORADOL) 2-23 - Intramuscu ity of injection 20:45: 20:05 [place], ONCE, [place] 30 mg 00 :00 1 dose, On [facility] [place] [facility] 04/02/21 at 1445, [facility] ondansetron 2020-04 Yes [id number] 4mg Take 1 [facility] 4 mg 2-23 tablet by ity of disintegrat 00:00: mouth [place] ing tablet 00 every 8 Medica l (eight) Branch hours as needed for Nausea and Vomiting (N/V). ondansetron 2020-04 Yes [id number] 4mg Take 1 [facility] 4 mg 2-23 tablet by ity of disintegrat 00:00: mouth [place] ing tablet 00 every 8 Medica l (eight) Branch hours as needed for Nausea and Vomiting (N/V). ondansetron 2020-04 Yes [id number] 4mg Take 1 [facility] 4 mg 2-23 tablet by ity of disintegrat 00:00: mouth [place] ing tablet 00 every 8 Medica l (eight) Branch hours as needed for Nausea and Vomiting (N/V). ondansetron 2020-04 Yes [id number] 4mg Take 1 [facility] 4 mg 2-23 tablet by ity of disintegrat 00:00: mouth [place] ing tablet 00 every 8 Medica l (eight) Branch hours as needed for Nausea and Vomiting (N/V). ondansetron 2020-04 Yes [id number] 4mg Take 1 Univers 4 mg 2-23 tablet by ity of disintegrat 00:00: mouth [place] ing tablet 00 every 8 Medica l (eight) Branch hours as needed for Nausea and Vomiting (N/V). ondansetron 2020-04 Yes [id number] 4mg Take 1 Univers 4 mg 2-23 tablet by ity of disintegrat 00:00: mouth [place] ing tablet 00 every 8 Medica l (eight) Branch hours as needed for Nausea and Vomiting (N/V). ondansetron 2020-04 Yes [id number] 4mg Take 1 Univers 4 mg 2-23 tablet by ity of disintegrat 00:00: mouth [place] ing tablet 00 every 8 Medica l (eight) Branch hours as needed for Nausea and Vomiting (N/V). ondansetron 2020-04 Yes [id number] 4mg Take 1 Univers 4 mg 2-23 tablet by ity of disintegrat 00:00: mouth [place] ing tablet 00 every 8 Medica l (eight) Branch hours as needed for Nausea and Vomiting (N/V). ondansetron 2020-04 Yes [id number] 4mg Take 1 Univers 4 mg 2-23 tablet by ity of disintegrat 00:00: mouth [place] ing tablet 00 every 8 Medica l (eight) Branch hours as needed for Nausea and Vomiting (N/V). ondansetron 2020-04 Yes [id number] 4mg Take 1 [facility] 4 mg 2-23 tablet by ity of disintegrat 00:00: mouth [place] ing tablet 00 every 8 Medica l (eight) Branch hours as needed for Nausea and Vomiting (N/V). ondansetron 2020-04 Yes [id number] 4mg Take 1 Univers 4 mg 2-23 [...] QD Take 17 g Methodi e glycol -13 12-[address] (MIRALAX) 00:00: 05:59 [...] to 3 soft stools per day). lactulose 2- No 20g Q24H Take 30 mL M ethodi 10 gram/15 7-18 08-25 ([address] mL (15 mL) 00:00: 00:00 total) by [facility] solution 00 :00 mouth l daily as needed (2 to 3 soft stools per day). cholecalcif 2020- No [id number] 1999U Take 2 Univers nuno, 6-26 07-27 tablets by ity of vitamin D3, 00:00: 04:59 [place] 25 mcg 00 :00 daily for Medical (1,000 30 days. Branch unit) tablet cyanocobala 2020- No [id number] 1000ug inject 1 Univers min 1,000 6-26 07-27 mL under ity o f mcg/mL 00:00: 04:59 the skin [place] injection 00 :00 every 24 Medica l (twenty-fo Branch ur) hours for 30 days. KCL 20 mEq 2020- No [id number] 20meq Take 1 Univers tablet 6-26 07-27 tablet by ity of 00:00: 04:59 mouth [place] 00 :00 daily for Medical 30 days. Branch cholecalcif 2020- No [id number] 1999U Take 2 Univers nuno, 6-26 07-27 tablets by ity of vitamin D3, 00:00: 04:59 mouth [place] 25 mcg 00 :00 daily for Medical (1,000 30 days. Branch unit) tablet cyanocobala 2020- No [id number] 1000ug inject 1 Univers min 1,000 6-26 07-27 mL under ity o f mcg/mL 00:00: 04:59 the skin [place] injection 00 :00 every 24 Medica l (twenty-fo Branch ur) hours for 30 days. KCL 20 mEq 2020- No [id number] 20meq Take 1 Univers tablet 6-26 07-27 [...] ity o f mL oral 18:10: daily. [place] solution 25 Medical Branch pantoprazol Yes 40mg Take 40 mg Univers e 6-25 by mouth ity of (PROTONIX) 18:10: daily. [place] 40 mg EC 25 Medical tablet Branch lipase/prot 2020- No Take by Un marline ease/amylas 6-25 06-25 mouth. ity o f e (CREON 10 16:09: 00:00 [place] ORAL) 48 :00 Medical Branch furosemide 0 2020- No 40mg Take 40 mg Univers (LASIX) 40 6-25 06-25 by mouth ity of mg tablet 16:09: 00:00 every [place] 48 :00 morning Medical and Branch evening. lactulose Yes 30mL Take 30 mL Un marline 10 gram/15 6-25 by mouth ity o f mL oral 13:10: daily. [place] solution 25 Medical Branch pantoprazol Yes 40mg Take 40 mg Univers e 6-25 by mouth ity of (PROTONIX) 13:10: daily. [place] 40 mg EC 25 Medical tablet Branch lactulose Yes 30mL Take 30 mL Un marline 10 gram/15 6-25 by mouth ity o f mL oral 13:10: daily. [place] solution 25 Medical Branch pantoprazol Yes 40mg Take 40 mg Univers e 6-25 by mouth ity of (PROTONIX) 13:10: daily. [place] 40 mg EC 25 Medical tablet Branch lactulose Yes 30mL Take 30 mL Un marline 10 gram/15 6-25 by mouth ity o f mL oral 13:10: daily. [place] solution 25 Medical Branch pantoprazol 2021-0 Yes [...] unresponsi ve to Ondansetro n proMETHazin Yes [id number] 12.5mg Take 1 Univers e 12.5 mg 6-25 tablet by ity o f tablet 00:00: mouth [place] 00 every 6 Medical (six) Branch hours as needed for Nausea and Vomiting (N/V) or N/V unresponsi ve to Ondansetro n. proMETHazin Yes [id number] 12.5mg Take 1 Univers e 12.5 mg 6-25 tablet by ity o f tablet 00:00: mouth [place] 00 every 6 Medical (six) Branch hours as needed for Nausea and Vomiting (N/V) or N/V unresponsi ve to Ondansetro n. proMETHazin Yes [id number] 12.5mg Take 1 Univers e 12.5 mg 6-25 tablet by ity o f tablet 00:00: mouth [place] 00 every 6 Medical (six) Branch hours as needed for Nausea and Vomiting (N/V) or N/V unresponsi ve to Ondansetro n. proMETHazin Yes [id number] 12.5mg Take 1 Univers e 12.5 mg 6-25 tablet by ity o f tablet 00:00: mouth [place] 00 every 6 Medical (six) Branch hours as needed for Nausea and Vomiting (N/V) or N/V unresponsi ve to Ondansetro n. proMETHazin Yes [id number] 12.5mg Take 1 Univers e 12.5 mg 6-25 tablet by ity o f tablet 00:00: mouth [place] 00 every 6 Medical (six) Branch hours as needed for Nausea and Vomiting (N/V) or N/V unresponsi ve to Ondansetro n. proMETHazin Yes [id number] 12.5mg Take 1 Univers e 12.5 mg 6-25 tablet by ity o f tablet 00:00: mouth [place] 00 every 6 Medical (six) Branch hours as needed for Nausea and Vomiting (N/V) or N/V unresponsi ve to Ondansetro n. proMETHazin Yes [id number] 12.5mg Take 1 Univers e 12.5 mg 6-25 tablet by ity o f tablet 00:00: mouth [place] 00 every 6 Medical (six) Branch hours as needed for Nausea and Vomiting (N/V) or N/V unresponsi ve to Ondansetro n. proMETHazin Yes [id number] 12.5mg Take 1 Univers e 12.5 mg 6-25 tablet by ity o f tablet 00:00: mouth [place] 00 every 6 Medical (six) Branch hours as needed for Nausea and Vomiting (N/V) or N/V unresponsi ve to Ondansetro n. proMETHazin Yes [id number] 12.5mg Take 1 Univers e 12.5 mg 6-25 tablet by ity o f tablet 00:00: mouth [place] 00 every 6 Medical (six) Branch hours as needed for Nausea and Vomiting (N/V) or N/V unresponsi ve to Ondansetro n. proMETHazin Yes [id number] 12.5mg Take 1 Univers e 12.5 mg 6-25 tablet by ity o f tablet 00:00: mouth [place] 00 every 6 Medical (six) Branch hours as needed for Nausea and Vomiting (N/V) or N/V unresponsi ve to Ondansetro n. proMETHazin Yes [id number] 12.5mg Take 1 Univers e 12.5 mg 6-25 tablet by ity o f tablet 00:00: mouth [place] 00 every 6 Medical (six) Branch hours as needed for Nausea and Vomiting (N/V) or N/V unresponsi ve to Ondansetro n. proMETHazin Yes [id number] 12.5mg Take 1 Univers e 12.5 mg 6-25 tablet by ity o f tablet 00:00: mouth [place] 00 every 6 Medical (six) Branch hours as needed for Nausea and Vomiting (N/V) or N/V unresponsi ve to Ondansetro n. proMETHazin Yes [id number] 12.5mg Take 1 Univers e 12.5 mg 6-25 tablet by ity o f tablet 00:00: mouth [place] 00 every 6 Medical (six) Branch hours as needed for Nausea and Vomiting (N/V) or N/V unresponsi ve to Ondansetro n. proMETHazin Yes [id number] 12.5mg Take 1 Univers e 12.5 mg 6-25 tablet by ity o f tablet 00:00: mouth [place] 00 every 6 Medical (six) Branch hours as needed for Nausea and Vomiting (N/V) or N/V unresponsi ve to Ondansetro n. proMETHazin Yes [id number] 12.5mg Take 1 Univers e 12.5 mg 6-25 tablet by ity o f tablet 00:00: mouth [place] 00 every 6 Medical (six) Branch hours as needed for Nausea and Vomiting (N/V) or N/V unresponsi ve to Ondansetro n. proMETHazin Yes [id number] 12.5mg Take 1 Univers e 12.5 mg 6-25 tablet by ity o f tablet 00:00: mouth [place] 00 every 6 Medical (six) Branch hours as needed for Nausea and Vomiting (N/V) or N/V unresponsi ve to Ondansetro n. furosemide 2020- No [id number] 40mg Take 1 Univers 40 mg 6-25 07-26 tablet by ity of tablet 00:00: 04:59 mouth [place] 00 :00 every Medical morning Branch and evening for 30 days. lipase-prot 2020- No [id number] 2{capsu Take 2 Univers ease-amylas 6-25 07-26 le} capsules ity of e 00:00: 04:59 by mouth 3 [place] 12,000-38,0 00 :00 (three) Medic al 00 -60,000 times Branch unit daily with capsule meals for 30 days. lactobacill 2020- No [id number] .5mg Take 1 Univers us 6-25 07-26 tablet by ity of acidophilus 00:00: 04:59 mouth 2 [place] 00 :00 (two) Medical times Branch daily for 30 days. furosemide 2020- No [id number] 40mg Take 1 Univers 40 mg 6-25 07-26 tablet by ity of tablet 00:00: 04:59 mouth [place] 00 :00 every Medical morning Branch and evening for 30 days. lipase-prot 2020- No [id number] 2{capsu Take 2 Univers ease-amylas 6-25 07-26 le} capsules ity of e 00:00: 04:59 by mouth 3 [place] 12,000-38,0 00 :00 (three) Medic al 00 -60,000 times Branch unit daily with capsule meals for 30 days. lactobacill 2020- No [id number] .5mg Take 1 Univers us 6-25 - tablet by ity of acidophilus 00:00: 04:59 mouth 2 [place] 00 :00 (two) Medical times Branch daily for 30 days. vancomycin 2020- No [id number] 125mg Take 1 Univers 125 mg 6-25 07-06 capsule by ity of capsule 00:00: 04:59 mouth 4 [place] 00 :00 (four) Medical times Branch daily for 10 days. vancomycin 2020- No [id number] 125mg Take 1 Univers 125 mg 6-25 [...] Indication s: acute pain cephALEXin 2020- No [id number] 500mg Take 1 Univers 500 mg 6-25 07- capsule by ity of capsule 00:00: 04:59 mouth 4 [place] 00 :00 (four) Medical times [place] daily for 5 days. cephALEXin 2020- No [id number] 500mg Take 1 Univers 500 mg 10-03 capsule by ity of capsule 00:00: 04:59 mouth 4 [place] 00 :00 (four) Medical times [place] daily for 5 days. meperidine Yes 25mg [...] dose [place] mg 00 on [facility] 09/30/20 at Branch 1615, Until Discontinu [...] cholecalcif Yes 2000U 2,000 Univ ers nuno - Units, ity of (vitamin 20:00: Oral, [place] D3) tablet 00 DAILY, Medical 2,000 Units [...] :00 ONCE, 1 Medical 50 mcg dose, [facility] Branch 09/29/20 at 0230, Routine piperacilli 2020- No 3.375g 3.375 g, Univers n-tazobacta 09-29 IV ity of m (ZOSYN) 07:30: 07:00 Piggyback, [place] 3.375 g in 00 :00 ONCE, 1 Medica l NaCl 0.9% dose, [facility] Branc h (NS) 100 mL 09/29/20 at [...] injection 4 17 Starting Medi molly mg [facility] 09/29/20 at 0142, Until Discontinu ed, Routine, Nausea and Vomiting (N/V) iopamidol 2020- No [id number] 100mL 100 mL, Univers (ISOVUE 09-29 Intravenou [...] :00 ONCE, 1 Medical 50 mcg dose, [facility] 09/29/20 at 0045, Routine NaCl 0.9% No 1000mL at 999 Uni vers (NS) IV 09-29 06-21 mL/hr, ity of infusion 05:45: 06:38 [place]ven[place] 1,000 mL 00 :45 s, Medical CONTINUOUS Branch , Starting 09/29/20 at 0045, Until 09/29/20 at 0138, Routine Meloxicam Meloxicam 2020- No Gm 1 tablet Common 09-17 [facility] 00:00: 00:00 - [facility] 00 :00 [facility] flu vaccine 2019- No .5mL 0.5 [...] for Pain (scale 4-6). acetaminoph 2020-0 Yes [id number] 1{tbl} Take 1 Univers en-codeine 5-02 tablet by ity of 300-30 mg 00:00: mouth [place] tablet 00 every 4 Medical (four) Branch hours as needed for Pain (scale 4-6). acetaminoph 2020-0 Yes [id number] 1{tbl} Take 1 Univers en-codeine 5-02 tablet by ity of 300-30 mg 00:00: mouth [place] tablet 00 every 4 Medical (four) Branch hours as needed for Pain (scale 4-6). lactulose 2020-0 2020- No [id number] 30mL Take 30 mL Univers 10 gram/15 5- 06-02 by mouth 2 it y of mL oral 00:00: 04:59 (two) [place] solution 00 :00 times Medical daily for Branch 30 days. pantoprazol 2019-0 2020- No [id number] 40mg Take 1 Univers e 40 mg EC 5- 06- tablet by ity of tablet 00:00: 04:59 mouth [place] 00 :00 daily for Medical 30 days. Branch lactulose 2019-0 2020- No [id number] 30mL Take 30 mL Univers 10 gram/15 - 06-02 by mouth 2 it y of mL oral 00:00: 04:59 (two) [place] solution 00 :00 times Medical daily for Branch 30 days. pantoprazol 2019-0 2020- No [id number] 40mg Take 1 Univers e 40 mg EC 5- 06-02 tablet by ity of tablet 00:00: 04:59 mouth [place] 00 :00 daily for Medical 30 days. Branch propranolol 2019-0 2020- No [id number] 10mg Take 1 Univers 10 mg 5-02 [...] Push, ity of (PF)) 08:55: 03:29 Q6HPRN, [place] injection 4 07 :20 Starting Medi molly [...] Take 1 Univ ers 600 mg 18 08-10 tablet by ity of tablet 00:00: 00:00 mouth [place] 00 :00 every 6 Medical (six) Branch hours as needed for Pain (scale 4-6). cyclobenzap 2020- No 10mg Take 1 Uni vers rine 10 mg -18 - tablet by ity of tablet 00:00: 00:00 mouth 3 [place] 00 :00 (three) Medical times Branch daily. traMADOL 2016-04 2020- No 50mg Take 1 Univer s (ULTRAM) 50 16 08-10 tablet by it y of mg tablet [...] Common e Sodium e Sodium Singh defined [facility] Acetaminoph Acetaminoph Yes Gm not Common en-Codeine en-Codeine Singh defined [facility] #3 #3 [facility] Oseltamivir Oseltamivir Yes Gm not Common Phosphate Phosphate Singh defined Sp cleopatra [facility] Levofloxaci Levofloxaci Yes Gm not Common n n Singh defined [facility] Xifaxan Xifaxan Yes Gm not Common Singh defined [facility] Lactulose Lactulose Yes Gm not Co mmon Singh defined [facility] Albuterol Albuterol Yes Gm not Co mmon Sulfate HFA Sulfate HFA Singh defined [facility] Azithromyci Azithromyci Yes Gm not Common n n Singh defined [facility] Amoxicillin Amoxicillin Yes Gm not Common -Pot -Pot Singh defined [facility] Clavulanate Clavulanate [facility] Immunizations Ordered Immunization Filled Immunization Date Status Commen ts Source Name Name FLUCELVAX QUAD 2021-12-[address] [facility] FLUCELVAX QUAD 2021-12-[address] 00:00:00 [facility] FLUCELVAX QUAD 2021-12-[address] 00:00:00 [facility] FLUCELVAX QUAD 2021-12-[address] 00:00:00 [facility] FLUCELVAX QUAD 2021-12-[address] 00:00:00 [...] QUAD PF 2021-02-[address] 00:00:00 [facility] FLUCELVAX QUAD PF 2021-02-[address] 00:00:00 [facility] FLUCELVAX QUAD PF 2021-02-[address] 00:00:00 [facility] FLUCELVAX QUAD PF 2021-02-[address] 00:00:00 [facility] FLUCELVAX QUAD PF 2021-02-[address] 00:00:00 [facility] Pneumococcal 2020-10-03 Completed [facility] Polysaccharide 00:00:00 [facility] Pneumococcal 2020-10-03 Completed [facility] Polysaccharide 00:00:00 [facility] Pneumococcal 2020-10-03 Completed [facility] Polysaccharide 00:00:00 [facility] Pneumococcal 2020-10-03 Completed [facility] Polysaccharide 00:00:00 [facility] Pneumococcal 2020-10-03 Completed [facility] Polysaccharide 00:00:00 [facility] Pneumococcal 2020-10-03 Completed University o f Polysaccharide, [...] 00:00:00 [place] Med ical PPSV23 (PNEUMOVAX) Branch MODERNA COVID-19 MRNA 2020-08-08 Completed [facility] VACCINATION 00:00:00 Hospital MODERNA COVID-19 MRNA 2020-08-08 Completed [facility] VACCINATION 00:00:00 Hospital MODERNA COVID-19 MRNA 2020-08-08 Completed [facility] VACCINATION 00:00:00 Hospital MODERNA COVID-19 MRNA 2020-08-08 Completed [facility] VACCINATION 00:00:00 Hospital MODERNA COVID-19 MRNA 2020-08-08 Completed [facility] VACCINATION 00:00:00 Hospital SARS-COV-2 COVID-19 2020-08-08 Completed Unive rsity [...] Unive rsity of MODERNA VACCINE 00:00:00 [place] [facility] ical Branch SARS-COV-2 COVID-19 2020-08-08 Completed Unive rsity of MODERNA VACCINE 00:00:00 [place] [facility] ical Branch SARS-COV-2 COVID-19 2020-08-08 Completed Unive rsity of MODERNA VACCINE 00:00:00 [place] [facility] ical Branch SARS-COV-2 COVID-19 2020-08-08 Completed Unive rsity of MODERNA VACCINE 00:00:00 [place] [facility] ical Branch SARS-COV-2 COVID-19 2020-08-08 Completed Unive rsity of MODERNA VACCINE 00:00:00 [place] [facility] ical Branch SARS-COV-2 COVID-19 2020-08-08 Completed Unive rsity of MODERNA VACCINE 00:00:00 [place] [facility] ical Branch SARS-COV-2 COVID-19 2020-08-08 Completed Unive rsity of MODERNA 12+ YRS 00:00:00 [place] Med ical VACCINE Branch SARS-COV-2 COVID-19 2020-08-08 Completed Unive rsity of MODERNA 12+ YRS 00:00:00 [place] Med ical VACCINE Branch SARS-COV-2 COVID-19 2020-08-08 Completed Unive rsity of MODERNA 12+ YRS 00:00:00 [place] [facility] ical VACCINE Branch SARS-COV-2 COVID-19 2020-08-08 Completed Unive rsity of MODERNA 12+ YRS 00:00:00 [place] [facility] ical VACCINE Branch SARS-COV-2 COVID-19 2020-08-08 Completed Unive rsity of MODERNA 12+ YRS 00:00:00 [place] Med ical VACCINE Branch SARS-COV-2 COVID-19 2020-08-08 Completed Unive rsity of MODERNA 12+ YRS 00:00:00 [place] Med ical VACCINE Branch SARS-COV-2 COVID-19 2020-08-08 Completed Unive rsity of MODERNA 12+ YRS 00:00:00 [place] [facility] ical VACCINE Branch MODERNA COVID-19 MRNA 2020-07-11 Completed [facility] VACCINATION 00:00:00 Hospital MODERNA COVID-19 MRNA 2020-07-11 Completed [facility] VACCINATION 00:00:00 Hospital MODERNA COVID-19 MRNA 2020-07-11 Completed [facility] VACCINATION 00:00:00 Hospital MODERNA COVID-19 MRNA 2020-07-11 Completed [facility] VACCINATION 00:00:00 Hospital MODERNA COVID-19 MRNA 2020-07-11 Completed [facility]ist VACCINATION 00:00:00 [facility] SARS-COV-2 COVID-19 2020-07-11 Completed Unive rsity of MODERNA VACCINE 00:00:00 [facility] ical Branch SARS-COV-2 COVID-19 2020-07-11 Completed Unive rsity of MODERNA VACCINE 00:00:00 [facility] ical Branch SARS-COV-2 COVID-19 2020-07-11 Completed Unive rsity of MODERNA VACCINE 00:00:00 [facility] ical Branch SARS-COV-2 COVID-19 2020-07-11 Completed Unive rsity of MODERNA VACCINE 00:00:00 [facility] ical Branch SARS-COV-2 COVID-19 2020-07-11 Completed Unive rsity of MODERNA VACCINE 00:00:00 [place] [facility] ical Branch SARS-COV-2 COVID-19 2020-07-11 Completed Unive rsity of MODERNA VACCINE 00:00:00 [facility] ical Branch SARS-COV-2 COVID-19 2020-07-11 Completed Unive rsity of MODERNA VACCINE 00:00:00 [facility] ical Branch SARS-COV-2 COVID-19 2020-07-11 Completed Unive rsity of MODERNA VACCINE 00:00:00 [facility] ical Branch SARS-COV-2 COVID-19 2020-07-11 Completed Unive rsity of MODERNA VACCINE 00:00:00 [place] Med ical Branch SARS-COV-2 COVID-19 2020-07-11 Completed Unive rsity of MODERNA VACCINE 00:00:00 [place] Med ical Branch SARS-COV-2 COVID-19 2020-07-11 Completed Unive rsity of MODERNA 12+ YRS 00:00:00 [place] Med ical VACCINE Branch SARS-COV-2 COVID-19 2020-07-11 Completed Unive rsity of MODERNA 12+ YRS 00:00:00 [place] Med ical VACCINE Branch SARS-COV-2 COVID-19 2020-07-11 Completed Unive rsity of MODERNA 12+ YRS 00:00:00 [place] Med ical VACCINE Branch SARS-COV-2 COVID-19 2020-07-11 Completed Unive rsity of MODERNA 12+ YRS 00:00:00 [place] Med ical VACCINE Branch SARS-COV-2 COVID-19 2020-07-11 Completed Unive rsity of MODERNA 12+ YRS 00:00:00 [place] Med ical VACCINE Branch SARS-COV-2 COVID-19 2020-07-11 Completed Unive rsity of MODERNA 12+ YRS 00:00:00 [place] Med ical VACCINE Branch SARS-COV-2 COVID-19 2020-07-11 Completed Unive rsity of MODERNA 12+ YRS 00:00:00 [place] Med ical VACCINE Branch FLUZONE QUAD PF 2019-08-11 Completed [facility] 00:00:00 Hospital FLUZONE QUAD PF 2019-08-11 Completed [facility] 00:00:00 Hospital FLUZONE QUAD PF 2019-08-11 Completed [facility] 00:00:00 Hospital FLUZONE QUAD PF 2019-08-11 Completed [facility] 00:00:00 Hospital FLUZONE QUAD PF 2019-08-11 Completed [facility] 00:00:00 Hospital Influenza Virus 2019-08-11 Completed Universit [...] Quang as Medical 6+ MO Branch Influenza (IM) 2018-05-29 Completed [facility] Preservative Free 00:00:00 Hospita l Influenza (IM) 2018-05-29 Completed [facility] Preservative Free 00:00:00 Hospita l Influenza (IM) 2018-05-29 Completed [facility] Preservative Free 00:00:00 Hospita l Influenza (IM) 2018-05-29 Completed [facility] Preservative Free 00:00:00 Hospita l Influenza (IM) 2018-05-29 Completed [facility] Preservative Free 00:00:00 Hospita l Influenza (IM) 2017-01-21 Completed [facility] Preservative Free 00:00:00 Hospita l Influenza (IM) 2017-01-21 Completed [facility] Preservative Free 00:00:00 Hospita l Influenza (IM) 2017-01-21 Completed [facility] Preservative Free 00:00:00 Hospita l Influenza (IM) 2017-01-21 Completed [facility] Preservative Free 00:00:00 Hospita l Influenza (IM) 2017-01-21 Completed [facility] Preservative Free 00:00:00 Hospita l Influenza (IM) 2016-02-28 Completed [facility] Preservative Free 00:00:00 Hospita l Influenza (IM) 2016-02-28 Completed [facility] Preservative Free 00:00:00 Hospita l Influenza (IM) 2016-02-28 Completed [facility] Preservative Free 00:00:00 Hospita l Influenza (IM) 2016-02-28 Completed [facility] Preservative Free 00:00:00 Hospita l Influenza (IM) 2016-02-28 Completed [facility] Preservative Free 00:00:00 Hospita l Vital Signs Vital Name Observation Time Observation Value Comments Source Systolic blood 2022-08-07 07:00:00 128 mm[Hg] Univer sity of pressure [place] [facility] Diastolic blood 2022-08-07 07:00:00 78 mm[Hg] Unive rsity of pressure [facility] Heart rate 2022-08-07 07:00:00 77 [facility] Respiratory rate 2022-08-07 07:00:00 21 /[facility] 2022-08-07 07:00:00 99 /min [facility] blood by [facility] Pulse oximetry Branch Body temperature 2022-08-07 05:48:00 36.72 Sand[place] Univ [facility] [place] [facility] Body height 2022-08-07 05:48:00 162.6 cm [facility] [place] [facility] Body weight 2022-08-07 05:48:00 98.884 kg [facility] [place] [facility] BMI 2022-08-07 05:48:00 37.42 kg/m2 [facility] [place] [facility] Systolic blood 2022-04-16 04:00:00 152 mm[Hg] Univer sity of pressure [place] [facility] Diastolic blood 2022-04-16 04:00:00 83 mm[Hg] Unive rsity of pressure [place] [facility] Heart rate 2022-04-16 04:00:00 86 /min [facility] [place] [facility] Respiratory rate 2022-04-16 04:00:00 18 /min Univ ersity [facility] [place] [facility] Oxygen saturation in 2022-04-16 04:00:00 97 /min University of Arterial blood by [place] [email or web address] [facility] Pulse oximetry Branch Body temperature 2022-04-16 02:17:00 37 Sandee Univ ersity [facility] [place] [facility] Body height 2022-04-16 02:17:00 162.6 cm [facility] [place] [facility] Body weight 2022-04-16 02:17:00 120.203 kg [facility] [place] [facility] BMI 2022-04-16 02:17:00 45.49 kg/m2 [facility] [place] [facility] Systolic blood 2022-04-10 03:00:00 113 mm[Hg] Univer sity of pressure [place] [facility] Diastolic blood 2022-04-10 03:00:00 71 mm[Hg] Unive rsity of pressure [place] [facility] Heart rate 2022-04-10 03:00:00 84 /min [facility] [place] [facility] Respiratory rate 2022-04-10 03:00:00 17 /min Univ ersity [facility] [place] [facility] Oxygen saturation in 2022-04-10 03:00:00 98 /min University of Arterial blood by [place] [email or web address] [facility] Pulse oximetry Branch Body temperature 2022-04-10 01:36:00 37.11 Sandee Univ ers[facility] [place] [facility] Body height 2022-04-10 01:36:00 162.6 cm [facility] [place] [facility] Body weight 2022-04-10 01:36:00 120.249 kg [facility] [place] [facility] BMI 2022-04-10 01:36:00 45.50 kg/m2 [facility] [place] [facility] Systolic blood 2022-02-15 21:55:49 128 mm[Hg] Univer sity of pressure [place] [facility] Diastolic blood 2022-02-15 21:55:49 79 mm[Hg] Unive rsity of pressure [place] [facility] Heart rate 2022-02-15 21:55:49 75 /min [facility] [place] [facility] Respiratory rate 2022-02-15 21:55:49 19 /min Univ ersity [facility] [place] [facility] Oxygen saturation in 2022-02-15 21:55:49 99 /min University of Arterial blood by [employer] Pulse oximetry Branch Body temperature 2022-02-15 19:43:00 35.89 Sandee Univ ersity of [place] [facility] Body height 2022-02-15 19:43:00 162.6 cm [facility] Body weight 2022-02-15 19:43:00 113.399 kg [facility] BMI 2022-02-15 19:43:00 42.91 kg/m2 [facility] Systolic blood 2021-09-29 03:00:00 126 mm[Hg] [facility] Diastolic blood 2021-09-29 03:00:00 57 mm[Hg] [facility] Heart rate 2021-09-29 03:00:00 78 /min [facility] Body temperature 2021-09-29 03:00:00 37.28 Sandee [facility] Respiratory rate 2021-09-29 03:00:00 16 /min [facility] Body height 2021-09-29 03:00:00 162.6 cm [facility] Body weight 2021-09-29 03:00:00 117.935 kg [facility] BMI 2021-09-29 03:00:00 44.63 kg/m2 [facility] Oxygen saturation in 2021-09-29 03:00:00 97 /min [facility] Arterial blood by [employer] molly Pulse oximetry Branch Systolic blood 2021-04-02 18:55:00 138 mm[Hg] [facility] Diastolic blood 2021-04-02 18:55:00 104 mm[Hg] [facility] Heart rate 2021-04-02 18:55:00 74 /min [facility] Body temperature 2021-04-02 18:55:00 36.78 Sandee [facility] Respiratory rate 2021-04-02 18:55:00 18 /min [facility] Body weight 2021-04-02 18:55:00 122.471 kg [facility] BMI 2021-04-02 18:55:00 46.35 kg/m2 [facility] Oxygen saturation in 2021-04-02 18:55:00 97 /min [facility] Arterial blood by [facility] Pulse oximetry Branch Systolic blood 2020-10-03 17:23:00 132 mm[Hg] [facility] Diastolic blood 2020-10-03 17:23:00 56 mm[Hg] [facility] Heart rate 2020-10-03 17:23:00 88 /min [facility] Body temperature 2020-10-03 17:23:00 36.94 [place] [facility] Respiratory rate 2020-10-03 17:23:00 18 /min [facility] Oxygen saturation in 2020-10-03 17:23:00 94 /min [facility] Arterial blood by [facility] Pulse oximetry Branch Body weight 2020-09-30 08:11:00 121.473 kg [facility] BMI 2020-09-30 08:11:00 47.44 kg/m2 [facility] Body height 2020-09-29 03:33:00 160 cm [facility] Diastolic blood 2019-08-11 20:04:00 44 mm[Hg] [facility] Heart rate 2019-08-11 20:04:00 70 /min [facility] Body temperature 2019-08-11 20:04:00 36.61 [place] [facility] Respiratory rate 2019-08-11 20:04:00 18 /min [facility] in 2019-08-11 20:04:00 91 /min [facility] Arterial blood by [facility] Pulse oximetry Branch Systolic blood 2019-08-11 20:04:00 107 mm[Hg] [facility] Body height 2019-08-10 08:01:00 162.6 cm [facility] Body weight 2019-08-10 08:01:00 119.296 kg [facility] BMI 2019-08-10 08:01:00 45.14 kg/m2 [facility] Diastolic blood 2019-08-11 20:04:00 44 mm[Hg] [facility] 2019-08-11 20:04:00 70 /min [facility] Body temperature 2019-08-11 20:04:00 36.61 [place] [facility] Res[facility] rate 2019-08-11 20:04:00 18 /min [facility] Oxygen saturation in 2019-08-11 20:04:00 91 /min [facility] Arterial blood by [facility] Pulse oximetry Branch Systolic blood 2019-08-11 20:04:00 107 mm[Hg] [facility] Body height 2019-08-10 08:01:00 162.6 cm [facility] Body weight 2019-08-10 08:01:00 119.296 kg [facility] BMI 2019-08-10 08:01:00 45.14 kg/m2 [facility] Heart rate 2022-07-09 13:57:00 78 /min [facility] Respiratory rate 2022-07-09 13:57:00 18 /min [facility] Oxygen saturation in 2022-07-09 13:57:00 94 /min [facility] Arterial blood by Pulse oximetry Systolic blood 2022-07-09 12:16:06 126 mm[Hg] Method [facility] pressure Diastolic blood 2022-07-09 12:16:06 58 mm[Hg] [facility] pressure Body temperature 2022-07-09 12:16:06 37.5 Sandee [facility] Body weight 2022-07-09 10:09:37 99.927 kg [facility] BMI 2022-07-09 10:09:37 37.81 kg/m2 [facility] Body height 2022-06-23 22:51:34 162.6 cm [facility] Systolic blood 2022-02-27 23:42:53 122 mm[Hg] Method [facility] pressure Diastolic blood 2022-02-27 23:42:53 53 mm[Hg] [facility] pressure Heart rate 2022-02-27 23:42:53 73 /min [facility] Body temperature 2022-02-27 23:42:53 37.06 Sandee [facility] Respiratory rate 2022-02-27 23:42:53 18 /min [facility] Oxygen saturation in 2022-02-27 23:42:53 98 /min [facility] Arterial blood by Pulse oximetry Body weight 2022-02-26 03:00:22 118.162 kg [facility] BMI 2022-02-26 03:00:22 44.71 kg/m2 [facility] Body height 2022-02-26 02:56:00 162.6 cm [facility] Systolic blood 2022-01-06 21:13:50 124 mm[Hg] Method [facility] pressure Diastolic blood 2022-01-06 21:13:50 58 mm[Hg] [facility] pressure Heart rate 2022-01-06 21:13:50 69 /min [facility] Body temperature 2022-01-06 21:13:50 35.89 Sandee [facility] Respiratory rate 2022-01-06 21:13:50 18 /min [facility] Oxygen saturation in 2022-01-06 21:13:50 95 /min [facility] Arterial blood by Pulse oximetry Body weight 2022-01-06 10:25:28 109.952 kg [facility] BMI 2022-01-06 10:25:28 41.61 kg/m2 [facility] Body height 2022-01-02 04:15:00 162.6 cm [facility] Systolic blood 2021-12-18 20:25:00 122 mm[Hg] Method [facility] pressure Diastolic blood 2021-12-18 20:25:00 57 mm[Hg] [facility] pressure Heart rate 2021-12-18 20:25:00 71 /min [facility] Body temperature 2021-12-18 20:25:00 36.94 Sandee [facility] Respiratory rate 2021-12-18 20:25:00 19 /min [facility] Oxygen saturation in 2021-12-18 20:25:00 94 /min [facility] Arterial blood by Pulse oximetry Body weight 2021-12-18 10:58:00 112.1 kg [facility] BMI 2021-12-18 10:58:00 42.42 kg/m2 [facility] Systolic blood 2021-12-03 12:21:16 129 mm[Hg] [facility] Di[facility] blood 2021-12-03 12:21:16 58 mm[Hg] [facility] pressure Heart rate 2021-12-03 12:21:16 68 /min [facility] Body temperature 2021-12-03 12:21:16 36.11 Sandee [facility] Respiratory rate 2021-12-03 12:21:16 20 /min [facility] Oxygen saturation in 2021-12-03 12:21:16 95 /min [facility] Arterial blood by Pulse oximetry Body weight 2021-12-03 11:09:00 112.6 kg [facility] BMI 2021-12-03 11:09:00 42.61 kg/m2 [facility] Body height 2021-10-21 16:02:36 162.6 cm [facility] Procedures Procedure Date / Time Performing Source Performed Clinician XR KNEE 3 VW RIGHT 2022-08-11 Eugenio Beck [facility] of 15:57:34 [facility] XR LUMBAR SPINE 2 VW 2022-08-11 Eugenio Beck [facility] of 15:57:06 [facility] EKG-12 LEAD 2022-08-07 Sukhdev Soto [facility] of 07:45:43 [facility] LIPASE 2022-08-07 Sukhdev Soto [facility] of 06:26:00 [facility] MAGNESIUM 2022-08-07 Sukhdev Soto [facility] of 06:26:00 [facility] TROPONIN I 2022-08-07 Sukhdev Soto [facility] of 06:26:00 [facility] COMP. METABOLIC PANEL (41480) 2022-08-07 Sukhdev Soto [facility] 06:26:00 [facility] CBC WITH DIFF 2022-08-07 Sukhdev Soto [facility] 06:26:00 [facility] URINALYSIS 2022-08-07 Sukhdev Soto [facility] 06:26:00 [facility] CONSENT/REFUSAL FOR DIAGNOSIS AND 2022-08-07 Doctor Buck olmedo, [facility] 05:28:51 [place] [facility] CBC WITH PLATELET AND DIFFERENTIAL 2022-07-09 WardDeepak sanches tor Gnostic[facility] 11:42:00 Hospital PROTHROMBIN TIME WITH INR 2022-07-09 Ward, Bebeto [facility] 11:42:00 Hospital BASIC METABOLIC PANEL 2022-07-09 Bebeto Ward 11:42:00 Hospital ESTIMATED GFR 2022-07-09 Deepak Wardtor [facility] 11:42:00 Hospital NM GASTRIC EMPTYING 2022-07-08 Anabella Suresh 18:43:00 [facility] CBC WITH PLATELET AND DIFFERENTIAL 2022-07-08 WardDeepak liriano Gn[facility] 09:20:00 Hospital PROTHROMBIN TIME WITH INR 2022-07-08 Ward, Bebeto [facility] 09:20:00 [facility] COMPREHENSIVE METABOLIC PANEL 2022-07-08 Me Demetrice thodist 09:20:00 [facility] ESTIMATED GFR 2022-07-08 Anabella Suresh 09:20:00 [facility] CBC WITH PLATELET AND DIFFERENTIAL 2022-07-07 Deepak Ward 10:07:00 Hospital PROTHROMBIN TIME WITH INR 2022-07-07 Ward, Bebeto [facility] 10:07:00 Hospital COMPREHENSIVE METABOLIC PANEL 2022-07-07 Nakia Cruz Pr thodist 10:07:00 Hospital PHOSPHORUS LEVEL 2022-07-07 Bebeto Ward 10:07:00 Hospital MAGNESIUM LEVEL 2022-07-07 Bebeto Wardist 10:07:00 Hospital ESTIMATED GFR 2022-07-07 Nakia Cruzist 10:07:[address] ABDOMEN PELVIS W CONTRAST 2022-07-06 Katherine Jaegerist 22:02:35 [facility] CBC WITH PLATELET AND DIFFERENTIAL 2022-07-06 Deepak Ward Gn[facility] 11:46:00 Hospital PROTHROMBIN TIME WITH INR 2022-07-06 Bebeto Ward [facility] 11:46:00 Hospital COMPREHENSIVE METABOLIC PANEL 2022-07-06 Nakia Cruz thodist 11:46:00 Hospital PHOSPHORUS LEVEL 2022-07-06 Bebeto Ward Gnosticist 11:46:00 Hospital MAGNESIUM LEVEL 2022-07-06 Bebeto Ward Gnosticist 11:46:00 Hospital LIPASE LEVEL 2022-07-06 Anabella Suresh 11:46:00 [facility] ESTIMATED GFR 2022-07-06 Nakia Cruz 11:46:00 Hospital SMEAR REVIEW 2022-07-06 Nakia Cruz 11:46:00 Hospital XR KNEE 1 OR 2 VW RIGHT 2022-07-06 Juan Suresh t 11:12:26 [facility] CBC WITH PLATELET AND DIFFERENTIAL 2022-07-05 Deepak Ward Gnostic[facility] 09:28:00 Hospital PROTHROMBIN TIME WITH INR 2022-07-05 Bebeto Ward [facility] dist 09:28:00 Hospital COMPREHENSIVE METABOLIC PANEL 2022-07-05 Nakia Cruz thodist 09:28:00 Hospital PHOSPHORUS LEVEL 2022-07-05 Bebeto Ward Gnosticist 09:28:00 Hospital MAGNESIUM LEVEL 2022-07-05 Bebeto Ward Gnostic[facility] 09:28:00 Hospital HEMOGLOBIN A1C 2022-07-05 Nakia Cruz 09:28:00 Hospital THYROID STIMULATING HORMONE 2022-07-05 Nakia Cruz odist 09:28:00 Hospital T4 2022-07-05 Nakia Cruz 09:28:00 Hospital VITAMIN D 25 HYDROXY LEVEL 2022-07-05 Nakia Cruzo dist 09:28:00 Hospital ESTIMATED GFR 2022-07-05 Nakia Cruz 09:28:00 Hospital SMEAR REVIEW 2022-07-05 Nakia Cruz 09:28:00 Hospital URINE CULTURE 2022-07-05 Nakia Cruz 05:34:00 Hospital URINALYSIS SCREEN AND MICROSCOPY, 2022-07-05 Nakia Cruz WITH REFLEX TO CULTURE 03:28:00 Hospital POC GLUCOSE 2022-07-05 Nakia Cruz 02:42:00 Hospital CBC WITH PLATELET AND DIFFERENTIAL 2022-07-05 Nakia Cruz 02:19:00 Hospital COMPREHENSIVE METABOLIC PANEL 2022-07-05 Nakia Cruz thodist 02:19:00 Hospital PROTHROMBIN TIME WITH INR 2022-07-05 Nakia Cruz ist 02:19:00 Hospital MAGNESIUM LEVEL 2022-07-05 Nakia Cruz 02:19:00 Hospital PHOSPHORUS LEVEL 2022-07-05 Nakia Cruz 02:19:00 Hospital LIPASE LEVEL 2022-07-05 Nakia Cruz 02:19:00 Hospital ESTIMATED GFR 2022-07-05 Nakia Cruz 02:19:00 Hospital SMEAR REVIEW 2022-07-05 Nakia Cruz 02:19:00 Hospital US DUPLEX VENOUS UPPER EXTREMITY 2022-06-30 Tameka Deshpandeist RIGHT 19:38:00 Hospital US CAROTID DUPLEX RIGHT 2022-06-30 Tameka Deshpande t 19:00:00 Hospital XR ABDOMEN 1 VW PORTABLE 2022-06-30 Bebeto Ward Method ist 15:45:00 Hospital CBC WITH PLATELET AND DIFFERENTIAL 2022-06-30 Nakia Cruz 09:35:00 Hospital PROTHROMBIN TIME WITH INR 2022-06-30 Nakia Cruz ist 09:35:00 Hospital PHOSPHORUS LEVEL 2022-06-30 Nakia Cruz 09:35:00 Hospital MAGNESIUM LEVEL 2022-06-30 Nakia Cruz 09:35:00 Hospital BASIC METABOLIC PANEL 2022-06-30 Bebeto Ward Gnosticist 09:35:00 Hospital HEPATIC FUNCTION PANEL 2022-06-30 Bebeto Ward Methodjoe t 09:35:00 Hospital ESTIMATED GFR 2022-06-30 Bebeto Ward Gnosticist 09:35:00 Hospital LIPASE LEVEL 2022-06-30 Bebeto Ward Gnosticist 09:35:00 Hospital SMEAR REVIEW 2022-06-30 Nakia Cruz 09:35:00 Hospital CV RIGHT HEART CATH 2022-06-29 Adama Duarte 15:34:01 Hospital TYPE AND SCREEN 2022-06-29 Bebeto Ward 10:54:00 Hospital PREPARE PLATELET PHERESIS 2022-06-29 Adama Duarte ist 10:54:00 Hospital CBC WITH PLATELET AND DIFFERENTIAL 2022-06-29 Nakia Cruz 09:19:00 Hospital PROTHROMBIN TIME WITH INR 2022-06-29 Nakia Cruz ist 09:19:00 Hospital PHOSPHORUS LEVEL 2022-06-29 Nakia Cruz 09:19:00 Hospital MAGNESIUM LEVEL 2022-06-29 Nakia Cruz 09:19:00 Hospital C-REACTIVE PROTEIN 2022-06-29 Bebeto Ward 09:19:00 Hospital LIPASE LEVEL 2022-06-29 Bebeto Ward 09:19:00 Hospital BASIC METABOLIC PANEL 2022-06-29 Bebeto Ward 09:19:00 Hospital HEPATIC FUNCTION PANEL 2022-06-29 Bebeto Ward t 09:19:00 Hospital ESTIMATED GFR 2022-06-29 Bebeto Ward 09:19:00 Hospital SMEAR REVIEW 2022-06-29 Nakia Cruz 09:19:00 Hospital VENIPUNC NEED PHYS SKILL,DX OR RX 2022-06-28 DivinagrRosemary sandovalist 22:38:21 [facility] CARDIAC OVERREAD 2022-06-28 Adama Duarte 15:27:09 Hospital CV CTA CORONARY ARTERIES W 2022-06-28 Adama Duarteo dist CONTRAST 15:24:49 Hospital CBC WITH PLATELET AND DIFFERENTIAL 2022-06-28 Nakia Cruz 08:51:00 Hospital PROTHROMBIN TIME WITH INR 2022-06-28 Nakia Cruz ist 08:51:00 Hospital PHOSPHORUS LEVEL 2022-06-28 Nakia Cruz 08:51:00 Hospital MAGNESIUM LEVEL 2022-06-28 Nakia Cruz 08:51:00 Hospital C-REACTIVE PROTEIN 2022-06-28 Ward, Bebeto Gnosticist 08:51:00 Hospital LIPASE LEVEL 2022-06-28 Ward, Bebeto Gnosticist 08:51:00 Hospital BASIC METABOLIC PANEL 2022-06-28 Ward, Bebeto Gnosticist 08:51:00 Hospital HEPATIC FUNCTION PANEL 2022-06-28 Ward, Bebeto Methodis t 08:51:00 Hospital LDH 2022-06-28 Ward, Bebeto Gnosticist 08:51:00 Hospital ESTIMATED GFR 2022-06-28 WardDeepak sanchestor Gnosticist 08:51:00 Hospital SMEAR REVIEW 2022-06-28 Nakia Cruz 08:51:00 Hospital CBC WITH PLATELET AND DIFFERENTIAL 2022-06-27 Nakia Cruz 08:56:00 Hospital PROTHROMBIN TIME WITH INR 2022-06-27 Nakia Cruz ist 08:56:00 Hospital PHOSPHORUS LEVEL 2022-06-27 Nakia Cruz 08:56:00 Hospital MAGNESIUM LEVEL 2022-06-27 Nakia Cruz 08:56:00 Hospital C-REACTIVE PROTEIN 2022-06-27 Deepak Wardtor Gnosticist 08:56:00 Hospital LIPASE LEVEL 2022-06-27 Sylvia Bebeto Gnosticist 08:56:00 Hospital LDH 2022-06-27 Deepak Wardtor Gnosticist 08:56:00 Hospital IONIZED CALCIUM 2022-06-27 Sylvia Bebeto Gnosticist 08:56:00 Hospital IGG SUBCLASSES 2022-06-27 Deepak Wardtor Gnosticist 08:56:00 Hospital BASIC METABOLIC PANEL 2022-06-27 Deepak Wardtor Gnosticist 08:56:00 Hospital HEPATIC FUNCTION PANEL 2022-06-27 Ward, Bebeto Methodis t 08:56:00 Hospital ESTIMATED GFR 2022-06-27 WardDeepak sanchestor Gnosticist 08:56:00 Hospital SMEAR REVIEW 2022-06-27 Nakia Cruz 08:56:00 Hospital CBC WITH PLATELET AND DIFFERENTIAL 2022-06-26 Nakia Cruz 08:56:00 Hospital PROTHROMBIN TIME WITH INR 2022-06-26 Nakia Cruz ist 08:56:00 Hospital COMPREHENSIVE METABOLIC PANEL 2022-06-26 Li, Nakia Me thodist 08:56:00 Hospital PHOSPHORUS LEVEL 2022-06-26 Nakia Cruz Gnosticist 08:56:00 Hospital MAGNESIUM LEVEL 2022-06-26 Nakia Cruz Gnosticist 08:56:00 Hospital AMMONIA LEVEL 2022-06-26 Nakia Cruz Gnosticist 08:56:00 Hospital ESTIMATED GFR 2022-06-26 Nakia Cruz Gnosticist 08:56:00 Hospital SMEAR REVIEW 2022-06-26 Nakia Cruz Gnosticist 08:56:00 Hospital CBC WITH PLATELET AND DIFFERENTIAL 2022-06-25 Nakia Cruz Gnosticist 09:48:00 Hospital PROTHROMBIN TIME WITH INR 2022-06-25 Nakia Cruz Method ist 09:48:00 Hospital COMPREHENSIVE METABOLIC PANEL 2022-06-25 Nakia Cruz thodist 09:48:00 Hospital PHOSPHORUS LEVEL 2022-06-25 Nakia Cruz Gnosticist 09:48:00 Hospital MAGNESIUM LEVEL 2022-06-25 Nakia Cruz Gnosticist 09:48:00 Hospital AMMONIA LEVEL 2022-06-25 Nakia Cruz Gnosticist 09:48:00 Hospital LIPASE LEVEL 2022-06-25 Myra Garcia Gnosticist 09:48:00 [facility] AMYLASE LEVEL 2022-06-25 Myra Garciaist 09:48:00 [facility] ESTIMATED GFR 2022-06-25 Nakia Cruz Gnosticist 09:48:00 Hospital SMEAR REVIEW 2022-06-25 Nakia Cruz Gnosticist 09:48:[address] ABDOMEN WWO CONTRAST PELVIS W 2022-06-25 Manjit Garcia CONTRAST 02:19:19 [facility] XR ABDOMEN 1 VW PORTABLE 2022-06-24 Myra Garcia Meth odist 21:52:21 [facility] CBC WITH PLATELET AND DIFFERENTIAL 2022-06-24 Nakia Cruz Gnosticist 10:10:00 Hospital PROTHROMBIN TIME WITH INR 2022-06-24 Nakia Cruz Method ist 10:10:00 Hospital COMPREHENSIVE METABOLIC PANEL 2022-06-24 Nakia Cruz thodist 10:10:00 Hospital PHOSPHORUS LEVEL 2022-06-24 Nakia Cruz Gnosticist 10:10:00 Hospital MAGNESIUM LEVEL 2022-06-24 Nakia Cruz 10:10:00 [facility] HEMOGLOBIN A1C 2022-06-24 Nakia Cruz 10:10:00 [facility] THYROID STIMULATING HORMONE 2022-06-24 Nakia Cruz odist 10:10:00 [facility] T4 2022-06-24 Nakia Cruz 10:10:00 [facility] VITAMIN D 25 HYDROXY LEVEL 2022-06-24 Nakia Cruzo dist 10:10:00 Hospital AMMONIA LEVEL 2022-06-24 Nakia Cruz 10:10:00 [facility] ESTIMATED GFR 2022-06-24 Nakia Cruz 10:10:00 Hospital SMEAR REVIEW 2022-06-24 Nakia Cruz 10:10:00 [facility] URINE CULTURE 2022-06-24 Nakia Cruz 03:00:00 [facility] URINALYSIS SCREEN AND MICROSCOPY, 2022-06-24 Nakia Cruz WITH REFLEX TO CULTURE 03:00:00 [facility] COVID-19 QUALITATIVE RT-PCR 2022-06-24 Nakia Cruz 01:01:00 [facility] COMPREHENSIVE METABOLIC PANEL 2022-06-23 Nakia Cruz thodist 23:27:00 Hospital MAGNESIUM LEVEL 2022-06-23 Nakia Cruz 23:27:00 Hospital PHOSPHORUS LEVEL 2022-06-23 Nakia Cruz 23:27:00 [facility] CBC WITH PLATELET AND DIFFERENTIAL 2022-06-23 Nakia Cruz 23:27:00 [facility] PROTHROMBIN TIME WITH INR 2022-06-23 Nakia Cruz ist 23:27:00 Hospital LIPASE LEVEL 2022-06-23 Nakia Cruz 23:27:00 [facility] ESTIMATED GFR 2022-06-23 Nakia Cruz 23:27:00 Hospital SMEAR REVIEW 2022-06-23 Nakia Cruz 23:27:00 [facility] US CAROTID DUPLEX BILATERAL 2022-06-21 Jose Raul Nicole 20:00:00 [facility] SPIROMETRY, DIFFUSION, LUNG 2022-06-21 Jose Raul Nicole VOLUMES 18:16:50 [facility] ARTERIAL BLOOD GAS, PULMONARY FUNC 2022-06-21 Cassi Nicole DEPT 17:38:00 [facility] TTE COMPLETE, WO CONTRAST, W 2022-06-21 Jose Raul Nicole hodist DOPPLER ([id number]) 16:30:00 [facility] XR CHEST 2 VW 2022-06-14 Jose Raul Nicole 20:41:00 [facility] XR PANOREX 2022-06-14 Jose Raul Nicole 20:41:00 [facility] BONE DENSITY 2022-06-14 Jose Raul Nicole 20:20:00 [facility] SHANELLE-GAYLE VIRUS ANTIBODY TEST 2022-06-14 Jose Raul Nicole 18:37:00 [facility] THC METABOLITE, S/P, QUANT 2022-06-14 Jose Raul Nicole Metho dist 18:37:00 [facility] BASIC METABOLIC PANEL 2022-06-14 Jose Raul Nicole 18:37:00 [facility] HEPATIC FUNCTION PANEL 2022-06-14 Jose Raul Nicole 18:37:00 [facility] LIPID PANEL 2022-06-14 Jose Raul Nicole Gnosticist 18:37:00 [facility] LIPOPROTEIN (A) 2022-06-14 Jose Raul Nicole Gnosticist 18:37:00 [facility] GGT 2022-06-14 Jose Raul Nicole 18:37:00 [facility] TOTAL IRON BINDING CAPACITY 2022-06-14 Jose Raul Nicole odist 18:37:00 [facility] FERRITIN LEVEL 2022-06-14 Jose Raul Nicole 18:37:00 [facility] MAGNESIUM LEVEL 2022-06-14 Jose Raul Nicole Gnosticist 18:37:00 [facility] PHOSPHORUS LEVEL 2022-06-14 Jose Raul Nicole Gnosticist 18:37:00 [facility] VITAMIN D 25 HYDROXY LEVEL 2022-06-14 Jose Raul Nicole Metho dist 18:37:00 [facility] THYROID STIMULATING HORMONE 2022-06-14 Jose Raul Nicole odist 18:37:00 [facility] ANTINUCLEAR ANTIBODIES (LUIS ANGEL) WITH 2022-06-14 Maximiliano Nicole REFLEX TO TITER AND PATTERN, 18:37:00 [facility] IMMUNOFLUORESCENCE CYTOMEGALOVIRUS AB, IGG 2022-06-14 Jose Raul Nicole t 18:37:00 [facility] CYTOMEGALOVIRUS AB, IGM 2022-06-14 Jose Raul Nicole t 18:37:00 [facility] HEMOGLOBIN A1C 2022-06-14 Jose Raul Nicoleist 18:37:00 [facility] HEPATITIS A ANTIBODY TOTAL 2022-06-14 Jose Raul Nicole Metho dist 18:37:00 [facility] HEPATITIS A ANTIBODY IGM 2022-06-[address] 18:37:00 [facility] HEPATITIS B SURFACE ANTIGEN 2022-06-14 Jose Raul Nicole odist 18:37:00 [facility] HEPATITIS B SURFACE ANTIBODY 2022-06-14 Jose Raul Nicole Met hodist 18:37:00 [facility] HEPATITIS B CORE ANTIBODY TOTAL 2022-06-14 Jose Raul Nicole Gnosticist 18:37:00 [facility] HEPATITIS C ANTIBODY 2022-06-14 Jose Raul Nicole Gnosticist 18:37:00 [facility] HIV 1/2 ANTIGEN/ANTIBODY, FOURTH 2022-06-14 Jose Raul Nicole GENERATION, WITH REF[facility]:37[facility] T[facility]PONEMA [facility] WITH RPR 2022-06-14 Cassi Nicole CONFIRMATION (REVERSE ALGORITHM) 18:37:00 [facility] SMOOTH MUSCLE ANTIBODIES WITH 2022-06-14 Jose Raul Nicole thodist REFLEX TO TITER, IFA 18:37:00 [facility] CBC WITH PLATELET AND DIFFERENTIAL 2022-06-14 Cassi Nicole 18:37:00 [facility] PROTHROMBIN TIME WITH INR 2022-06-14 Jose Raul Nicole ist 18:37:00 [facility] PARTIAL THROMBOPLASTIN TIME (PTT) 2022-06-14 Maximiliano Nicole 18:37:00 [facility] ABORH - TRANSPLANT 2022-06-14 Jose Raul Nicole 18:37:00 [facility] ALCOHOL LEVEL, BLOOD 2022-06-14 Jose Raul Nicole 18:37:00 [facility] ALPHA FETOPROTEIN 2022-06-14 Jose Raul Nicoleist 18:37:00 [facility] CARCINOEMBRYONIC ANTIGEN (CEA) 2022-06-14 Jose Raul Nicole ethodist 18:37:00 [facility] CANCER ANTIGEN 19-9 2022-06-14 Jose Raul Nicole 18:37:00 [facility] ALPHA-1 ANTITRYPSIN LEVEL 2022-06-14 Jose Raul Nicole ist 18:37:00 [facility] CERULOPLASMIN LEVEL 2022-06-14 Jose Raul Nicole 18:37:00 [facility] FIBRINOGEN 2022-06-14 Jose Raul Nicole 18:37:00 [facility] TB T-SPOT 2022-06-14 Jose Raul Nicole 18:37:00 [facility] C-REACTIVE PROTEIN 2022-06-14 Jose Raul Nicole 18:37:00 [facility] PREALBUMIN LEVEL 2022-06-14 Jose Raul Nicole 18:37:00 [facility] ZINC LEVEL, SERUM 2022-06-14 Jose Raul Nicole 18:37:00 [facility] DRUG ROSS 9, SER/JESI, SCRN W/RFLX 2022-06-14 Jose Raul Nicole TO CONF 18:37:00 [facility] ESTIMATED GFR 2022-06-14 Jose Raul Nicole 18:37:00 [facility] PHOSPHATIDYLETHANOL, BLOOD 2022-06-14 Jose Raul Nicole Metho dist 18:37:00 [facility] SMEAR REVIEW 2022-06-14 Jose Raul Nicole 18:37:00 [facility] SINGLE ANTIGEN BEADS 2022-06-14 Jose Raul Nicole 18:37:00 [facility] SMOOTH MUSCLE ANTIBODIES TITER 2022-06-14 Jose Raul Nicole ethodist 18:37:00 [facility] ECG 12-LEAD 2022-06-14 Jose Raul Nicole 15:46:40 [facility] ESTIMATED GFR 2022-05-30 Carolin Sanches 12:11:00 [facility] BASIC METABOLIC PANEL 2022-05-30 Bebeto Ward 12:00:00 Hospital HEPATIC FUNCTION PANEL 2022-05-30 Ward, Bebeto Methodis t 12:00:00 Hospital MAGNESIUM LEVEL 2022-05-30 Bebeto Ward Gnosticist 12:00:00 Hospital PHOSPHORUS LEVEL 2022-05-30 Bebeto Ward Gnosticist 12:00:00 Hospital PROTHROMBIN TIME WITH INR 2022-05-30 Bebeto Ward Metho dist 12:00:00 Hospital ESTIMATED GFR 2022-05-30 Bebeto Ward Gnosticist 12:00:00 Hospital CBC WITH PLATELET AND DIFFERENTIAL 2022-05-29 Carolin Sanches Gnosticist 11:20:00 Hospital BASIC METABOLIC PANEL 2022-05-29 Carolin Sanches Gnosticist 11:20:00 Hospital HEPATIC FUNCTION PANEL 2022-05-29 Carolin Sanches Gnosticist 11:20:00 Hospital MAGNESIUM LEVEL 2022-05-29 Carolin Sanches Gnosticist 11:20:00 Hospital PHOSPHORUS LEVEL 2022-05-29 Carolin Sanches Gnosticist 11:20:00 Hospital PROTHROMBIN TIME WITH INR 2022-05-29 Carolin Sanches Method ist 11:20:00 Hospital ESTIMATED GFR 2022-05-29 Carolin Sanches Gnosticist 11:20:00 Hospital SMEAR REVIEW 2022-05-29 Carolin Sanches Gnosticist 11:20:00 [facility] US UPPER GI TRACT, ENDOSCOPIC 2022-05-28 Carolin Sanches Pr thodist 22:06:00 Hospital CBC WITH PLATELET AND DIFFERENTIAL 2022-05-28 Carolin Sanches Gnosticist 10:58:00 Hospital BASIC METABOLIC PANEL 2022-05-28 Carolin Sanches Gnosticist 10:58:00 Hospital HEPATIC FUNCTION PANEL 2022-05-28 Carolin Sanches Gnosticist 10:58:00 Hospital MAGNESIUM LEVEL 2022-05-28 Carolin Sanches Gnosticist 10:58:00 Hospital PHOSPHORUS LEVEL 2022-05-28 Carolin Sanches Gnosticist 10:58:00 Hospital PROTHROMBIN TIME WITH INR 2022-05-28 Carolin Sanches Method ist 10:58:00 Hospital ESTIMATED GFR 2022-05-28 Anabella Suresh 10:58:00 [facility] COVID-19 QUALITATIVE RT-PCR 2022-05-27 Carolin Sanches Meth odist 19:50:00 Hospital CBC WITH PLATELET AND DIFFERENTIAL 2022-05-27 Carolin Sanches Gnosticist 10:50:00 [facility] BASIC METABOLIC PANEL 2022-05-27 Carolin Sanches Gnosticist 10:50:00 Hospital HEPATIC FUNCTION PANEL 2022-05-27 Carolin Sanches Gnosticist 10:50:00 Hospital MAGNESIUM LEVEL 2022-05-27 Carolin Sanches Gnosticist 10:50:00 Hospital PHOSPHORUS LEVEL 2022-05-27 Craolin Sanches Gnosticist 10:50:00 Hospital PROTHROMBIN TIME WITH INR 2022-05-27 Carolin Sanches Method ist 10:50:00 Hospital ESTIMATED GFR 2022-05-27 Anabella Suresh 10:50:00 [facility] SMEAR REVIEW 2022-05-27 Anabella Suresh 10:50:00 [facility] XR ABDOMEN 1 VW PORTABLE 2022-05-27 Myra Garcia Meth odist 03:05:14 [facility] CBC WITH PLATELET AND DIFFERENTIAL 2022-05-26 Carolin Sanches Gnosticist 08:48:00 [facility] BASIC METABOLIC PANEL 2022-05-26 Carolin Sanches Gnosticist 08:48:00 Hospital HEPATIC FUNCTION PANEL 2022-05-26 Carolin Sanches Gnosticist 08:48:00 Hospital MAGNESIUM LEVEL 2022-05-26 Carolin Sanches Gnosticist 08:48:00 Hospital PHOSPHORUS LEVEL 2022-05-26 Carolin Sanches Gnosticist 08:48:00 Hospital PROTHROMBIN TIME WITH INR 2022-05-26 Carolin Sanches Method ist 08:48:00 Hospital ESTIMATED GFR 2022-05-26 Anabella Suresh 08:48:00 [facility] URINE CULTURE 2022-05-26 Radha Lin Gnosticist 07:22:00 Hospital URINALYSIS SCREEN AND MICROSCOPY, 2022-05-26 Radha Lin Gnosticist WITH REFLEX TO CULTURE 05:01:00 Hospital MRI CHOLANGIOGRAM W WO CONTRAST 2022-05-25 Rylee Garcia Gnosticist 20:35:00 [facility] CBC WITH PLATELET AND DIFFERENTIAL 2022-05-25 Carolin Sanches Gnosticist 08:57:00 Hospital BASIC METABOLIC PANEL 2022-05-25 Carolin Sanches Gnosticist 08:57:00 Hospital HEPATIC FUNCTION PANEL 2022-05-25 Carolin Sanches Gnosticist 08:57:00 Hospital LIPASE LEVEL 2022-05-25 [facility] Anabella Aleman 08:57:00 [facility] ESTIMATED GFR [facility]22[facility]05-[facility] [facility] [address] ABDOMEN PELVIS WO CONTRAST 2022-05-25 Radha Lin thodi 02:26:53 Hospital ECG ED PRELIMINARY INTERPRETATION 2022-05-25 Radha Lin Gnosticist 02:01:22 Hospital BLOOD CULTURE, AEROBIC & ANAEROBIC 2022-05-25 Robel Lin Gnosticist 01:40:00 Hospital AMMONIA LEVEL 2022-05-25 Radha Lin 01:39:00 Hospital BLOOD CULTURE, AEROBIC & ANAEROBIC 2022-05-25 Robel Lin Gnosticist 01:05:00 Hospital CBC WITH PLATELET AND DIFFERENTIAL 2022-05-25 Robel Linist 00:58:00 Hospital HEPATIC FUNCTION PANEL 2022-05-25 Radha Lin Gnosticist 00:58:00 Hospital BASIC METABOLIC PANEL 2022-05-25 Radha Linist 00:58:00 Hospital LIPASE LEVEL 2022-05-25 Radha Lin 00:58:00 Hospital PROTHROMBIN TIME WITH INR 2022-05-25 Radha Lin ist 00:58:00 Hospital PARTIAL THROMBOPLASTIN TIME (PTT) 2022-05-25 Radha Lin Gnosticist 00:58:00 Hospital ESTIMATED GFR 2022-05-25 Radha Lin 00:58:00 Hospital ECG 12-LEAD 2022-05-24 Radha Linist 23:16:23 Hospital CBC WITH PLATELET AND DIFFERENTIAL 2022-05-20 Laci Garcia Gnosticist 11:33:00 [facility] SMEAR REVIEW 2022-05-20 Myra Garcia 11:33:00 [facility] ESOPHAGOGASTRODUODENOSCOPY (EGD) 2022-05-19 Elias Guzman 22:20:00 Hospital COLONOSCOPY 2022-05-19 Elias Guzman 22:20:00 Hospital TRANSFUSE PLATELET PHERESIS 2022-05-19 Myra Garcia 20:35:00 [facility] TRANSFUSE FRESH FROZEN PLASMA 2022-05-19 Myra Garcia 18:50:00 [facility] VENIPUNC NEED PHYS SKILL,DX OR RX 2022-05-19 Nav Rooney in Gnosticist 18:12:[address] [facility] CBC WITH PLATELET AND DIFFERENTIAL 2022-05-19 Laci Garcia 10:42:00 [facility] COMPREHENSIVE METABOLIC PANEL 2022-05-19 Maite, Anand Me thodist 10:42:00 [facility] MAGNESIUM LEVEL 2022-05-19 Maite, Anand Gnosticist 10:42:00 [facility] PHOSPHORUS LEVEL 2022-05-19 Maite, Anand Gnosticist 10:42:00 [facility] PROTHROMBIN TIME WITH INR 2022-05-19 Maite, Anand Method ist 10:42:00 [facility] ESTIMATED GFR 2022-05-19 Maite, Anand Gnosticist 10:42:00 [facility] SMEAR REVIEW 2022-05-19 Myra Garcia 10:42:00 [facility] COVID-19 QUALITATIVE RT-PCR 2022-05-18 Myra Garcia 23:42:00 [facility] CBC WITH PLATELET AND DIFFERENTIAL 2022-05-18 Laci Garcia 10:30:00 [facility] COMPREHENSIVE METABOLIC PANEL 2022-05-18 Maite, Anand Me thodist 10:30:00 [facility] MAGNESIUM LEVEL 2022-05-18 Maite, Anand Gnosticist 10:30:00 [facility] PHOSPHORUS LEVEL 2022-05-18 Maite, Anand Gnosticist 10:30:00 [facility] TYPE AND SCREEN 2022-05-18 Maite, Anand Gnosticist 10:30:00 [facility] PROTHROMBIN TIME WITH INR 2022-05-18 Maite, Anand Method ist 10:30:00 [facility] ESTIMATED GFR 2022-05-18 Maite, Anand Gnosticist 10:30:00 [facility] SMEAR REVIEW 2022-05-18 Myra Garcia 10:30:00 [facility] PREPARE FRESH FROZEN PLASMA 2022-05-18 Myra Garcia ethodist 10:30:00 [facility] PREPARE PLATELET PHERESIS 2022-05-18 Myra Garcia hodist 10:30:00 [facility] B NATRIURETIC PEPTIDE 2022-05-18 Fadi Thomas Methodis t 00:14:00 [facility] XR CHEST 1 VW PORTABLE 2022-05-17 Myra Garcia ist 22:07:00 [facility] CBC WITH PLATELET AND DIFFERENTIAL 2022-05-17 Maite, Anand Gnosticist 11:08:00 [facility] COMPREHENSIVE METABOLIC PANEL 2022-05-17 MaiteAndriye Me thodist 11:08:00 [facility] PROTHROMBIN TIME WITH INR 2022-05-17 Maite, Anand Method ist 11:08:00 [facility] ESTIMATED GFR 2022-05-17 Maite, Anand Gnosticist 11:08:00 [facility] SMEAR REVIEW 2022-05-17 Maite, Anand Gnosticist 11:08:00 [facility] CBC WITH PLATELET AND DIFFERENTIAL 2022-05-16 Maite, Anand Gnosticist 11:27:00 [facility] COMPREHENSIVE METABOLIC PANEL 2022-05-16 Maite, Anand Me thodist 11:27:00 [facility] PROTHROMBIN TIME WITH INR 2022-05-16 Maite, Anand Method ist 11:27:00 [facility] ESTIMATED GFR 2022-05-16 Maite, Anand Gnosticist 11:27:00 [facility] CREATINE KINASE, TOTAL (CPK) 2022-05-16 MaiteAnand Met hodist 11:27:00 [facility] SMEAR REVIEW 2022-05-16 Maite, Anand Gnosticist 11:27:00 [facility] BLOOD CULTURE, AEROBIC & ANAEROBIC 2022-05-15 Leah Sandoval Gnosticist 12:56:00 [facility] CBC WITH PLATELET AND DIFFERENTIAL 2022-05-15 Laci Garcia 11:11:00 [facility] CREATINE KINASE, TOTAL (CPK) 2022-05-15 Jeremy Sandoval hodist 11:11:00 [facility] COMPREHENSIVE METABOLIC PANEL 2022-05-15 Jeremy Sandoval thodist 11:11:00 [facility] PROTHROMBIN TIME WITH INR 2022-05-15 Jeremy Sandoval Method ist 11:11:00 [facility] ESTIMATED GFR 2022-05-15 Jeremy Sandoval Gnosticist 11:11:00 [facility] SMEAR REVIEW 2022-05-15 Myra Garcia 11:11:[address] [facility] [address] ANGIOGRAM PE CHEST 2022-05-14 Jeremy Sandoval 20:38:17 [facility] CBC WITH PLATELET AND DIFFERENTIAL 2022-05-14 Laci Garcia Gnosticist 12:29:00 [facility] COMPREHENSIVE METABOLIC PANEL 2022-05-14 Jeremy Sandovalodist 12:29:00 [facility] PROTHROMBIN TIME WITH INR 2022-05-14 Jeremy Sandoval Method ist 12:29:00 [facility] ESTIMATED GFR 2022-05-14 Jeremy Sandoval Gnosticist 12:29:00 [facility] SMEAR REVIEW 2022-05-14 Myra Garcia 12:29:00 [facility] MRI HIP WWO CONTRAST RT 2022-05-13 Neelima Pettit Method ist 20:11:00 [facility] MRI THIGH W WO CONTRAST LEFT 2022-05-13 Beverly Thompson hodist 19:57:00 Hospital VANCOMYCIN LEVEL, TROUGH 2022-05-[address] 09:42:00 [facility] TOTAL IRON BINDING CAPACITY 2022-05-13 Myra Garcia 09:42:00 [facility] FERRITIN LEVEL 2022-05-13 Myra Garcia 09:42:00 [facility] CBC WITH PLATELET AND DIFFERENTIAL 2022-05-13 Laci Garcia 09:42:00 [facility] COMPREHENSIVE METABOLIC PANEL 2022-05-13 Jeremy Sandoval 09:42:00 [facility] PROTHROMBIN TIME WITH INR 2022-05-13 Jeremy Sandoval Method ist 09:42:00 [facility] ESTIMATED GFR 2022-05-13 Jeremy Sandoval Gnosticist 09:42:00 [facility] SMEAR REVIEW 2022-05-13 Myra Garcia Gnosticist 09:42:00 [facility] CREATINE KINASE, TOTAL (CPK) 2022-05-13 Jeremy Sandoval hodist 09:42:00 [facility] OCCULT BLOOD, STOOL 2022-05-13 Myra Garcia Gnosticist 00:59:00 [facility] TRANSFUSE RED BLOOD CELLS 2022-05-12 Jeremy Sandoval Method ist 17:00:00 [facility] ALDOLASE, SERUM 2022-05-12 eBverly Thompson Gnosticist 10:36:00 Hospital MYOGLOBIN 2022-05-12 Beverly Thompson Gnosticist 10:36:00 Hospital CBC WITH PLATELET AND DIFFERENTIAL 2022-05-12 Leah Sandoval sh Gnosticist 10:36:00 [facility] PROTHROMBIN TIME WITH INR 2022-05-12 Jeremy Sandoval Method ist 10:36:00 [facility] PHOSPHORUS LEVEL 2022-05-12 Jeremy Sandoval Gnosticist 10:36:00 [facility] TYPE AND SCREEN 2022-05-12 Jeremy Sandoval Gnosticist 10:36:00 [facility] BASIC METABOLIC PANEL 2022-05-12 MichelakarJeremy Gnosticist 10:36:00 [facility] HEPATIC FUNCTION PANEL 2022-05-12 Jeremy Sandoval Gnosticist 10:36:00 [facility] MAGNESIUM LEVEL 2022-05-12 Jeremy Sandoval Gnosticist 10:36:00 [facility] ESTIMATED GFR 2022-05-12 Jeremy Sandoval Gnosticist 10:36:00 [facility] SMEAR REVIEW 2022-05-12 Jeremy Sandoval Gnosticist 10:36:00 [facility] PREPARE RBC 2022-05-12 Jeremy Sandoval Gnosticist 10:36:00 [facility] ESTIMATED GFR 2022-05-12 DinarJeremy Gnosticist 09:48:00 [facility] XR HIP 2-3 VIEWS RIGHT 2022-05-[address] 05:48:10 [facility] XR ABDOMEN 1 VW PORTABLE 2022-05-[address] 03:18:49 [facility] ECG 12-LEAD 2022-05-12 Jeremy Sandoval 02:48:48 [facility] TROPONIN T 2022-05-12 Jeremy Sandoval 02:16:00 [facility] XR ABDOMEN 1 VW PORTABLE 2022-05-11 Myra Garcia odist 23:42:38 [facility] VENIPUNC NEED PHYS SKILL,DX OR RX 2022-05-11 David Lambert 18:13:11 Hospital LDH 2022-05-11 Jeremy Sandoval 11:15:00 [facility] SS-B ANTIBODY 2022-05-11 Jeremy Sandoval 11:15:00 [facility] SEDIMENTATION RATE 2022-05-11 Jeremy Sandoval 11:15:00 [facility] C-REACTIVE PROTEIN 2022-05-11 Jeremy Sandoval 11:15:00 [facility] ALDOLASE, SERUM 2022-05-11 Skylar Lopez 11:15:00 [facility] ANTINUCLEAR ANTIBODIES (LUIS ANGEL) WITH 2022-05-11 Parveen Lopez REFLEX TO TITER AND PATTERN, 11:15:00 Hos pital IMMUNOFLUORESCENCE PROTHROMBIN TIME WITH INR 2022-05-11 Jeremy Sandoval ist 11:15:00 [facility] CBC WITH PLATELET AND DIFFERENTIAL 2022-05-11 Leah Sandoval 11:15:00 [facility] BASIC METABOLIC PANEL 2022-05-11 Jeremy Sandoval 11:15:00 [facility] ESTIMATED GFR 2022-05-11 Jeremy Sandoval 11:15:00 [facility] HEPATIC FUNCTION PANEL 2022-05-11 Jeremy Sandoval 11:15:00 [facility] MAGNESIUM LEVEL 2022-05-11 Jeremy Sandoval 11:15:00 [facility] PHOSPHORUS LEVEL 2022-05-11 Jeremy Sandoval 11:15:00 [facility] SMEAR REVIEW 2022-05-11 Jeremy Sandoval 11:15:00 [facility] CBC WITH PLATELET AND DIFFERENTIAL 2022-05-10 Maite, Anand Gnosticist 12:52:00 [facility] COMPREHENSIVE METABOLIC PANEL 2022-05-10 Maite Anand Me thodist 12:52:00 [facility] PROTHROMBIN TIME WITH INR 2022-05-10 Maite, Anand Method ist 12:52:00 [facility] CREATINE KINASE, TOTAL (CPK) 2022-05-10 Jeremy Sandoval Met hodist 12:52:00 [facility] ESTIMATED GFR 2022-05-10 Maite, Anand Gnosticist 12:52:00 [facility] SMEAR REVIEW 2022-05-10 Maite, Anand Gnosticist 12:52:00 [facility] ENTERIC BACTERIAL PANEL 2022-05-09 Maite, Anand Methodis t 22:01:00 [facility] ENTERIC PARASITIC PANEL 2022-05-09 Maite, Anand Methodis t 22:01:00 [facility] ENTERIC VIRAL PANEL 2022-05-09 Maite, Anand Gnosticist 22:01:00 [facility] CBC WITH PLATELET AND DIFFERENTIAL 2022-05-09 Maite, Anand Gnosticist 11:40:00 [facility] COMPREHENSIVE METABOLIC PANEL 2022-05-09 Maite Anand Me thodist 11:40:00 [facility] PROTHROMBIN TIME WITH INR 2022-05-09 Maite, Anand Method ist 11:40:00 [facility] MAGNESIUM LEVEL 2022-05-09 Jeremy Sandoval Gnosticist 11:40:00 [facility] PHOSPHORUS LEVEL 2022-05-09 Jeremy Sandoval Gnosticist 11:40:00 [facility] ESTIMATED GFR 2022-05-09 Maite, Anand Gnosticist 11:40:00 [facility] SMEAR REVIEW 2022-05-09 Maite, Anand Gnosticist 11:40:00 [facility] CREATINE KINASE, TOTAL (CPK) 2022-05-09 Jeremy Sandoval Met hodist 00:45:00 [facility] XR KNEE 3 VW BILATERAL 2022-05-08 Jeremy Sandoval 21:35:00 [facility] BLOOD CULTURE, AEROBIC & ANAEROBIC 2022-05-08 Leah Sandoval Gnosticist 21:17:00 [facility] XR CHEST 1 VW PORTABLE 2022-05-08 Jeremy Sandoval Gnosticist 16:17:21 [facility] CBC WITH PLATELET AND DIFFERENTIAL 2022-05-08 Anand Aroraist 11:00:00 [facility] PROTHROMBIN TIME WITH INR 2022-05-08 MaiteAnand salomon Method ist 11:00:00 [facility] MAGNESIUM LEVEL 2022-05-08 MaiteAnandist 11:00:00 [facility] PHOSPHORUS LEVEL 2022-05-08 Maite, Anand Rileyist 11:00:00 [facility] COMPREHENSIVE METABOLIC PANEL 2022-05-08 Anand Arora thodist 11:00:00 [facility] ESTIMATED GFR 2022-05-08 MaiteAnand salomonist 11:00:00 [facility] SMEAR REVIEW 2022-05-08 MaiteAnand salomonist 11:00:00 [facility] ESTIMATED GFR 2022-05-08 MaiteAnand salomonist 08:33:00 [facility] US DUPLEX VENOUS LOWER EXTREMITY 2022-05-07 Manjit Garcia BILATERAL 20:55:00 [facility] ALPHA FETOPROTEIN 2022-05-07 Myra Garcia 09:36:00 [facility] PROTHROMBIN TIME WITH INR 2022-05-07 Myra Garcia Met hodist 09:36:[address] [facility] [address] ABDOMEN PELVIS W CONTRAST 2022-05-06 Oneil Rodriguez Met hodist 22:48:13 [facility] URINE CULTURE 2022-05-06 Aimee Ward 22:05:00 Hospital URINALYSIS SCREEN AND MICROSCOPY, 2022-05-06 Hemant Ward WITH REFLEX TO CULTURE 21:43:00 [facility] COVID-19, INFLUENZA A&B, AND RSV 2022-05-06 Aimee Ward QUALITATIVE RT-PCR 21:13:00 [facility] CBC WITH PLATELET AND DIFFERENTIAL 2022-05-06 Fidel Ward 20:15:00 Hospital COMPREHENSIVE METABOLIC PANEL 2022-05-06 Aimee Ward 20:15:00 Hospital LIPASE LEVEL 2022-05-06 Aimee Ward 20:15:00 Hospital ESTIMATED GFR 2022-05-06 Aimee Ward 20:15:00 Hospital SMEAR REVIEW 2022-05-06 Aimee Ward 20:15:00 Hospital EKG-12 LEAD 2022-04-16 Aleena [facility] 04:17:16 [facility] XR CHEST 2 VW 2022-04-16 Aleena [facility] 03:21:40 [facility] TROPONIN I 2022-04-16 Leodorina [facility] of 02:46:00 [facility] HEPATIC FUNCTION PANEL (51208) 2022-04-16 Estephania Flood niversity of (ALB,T.PRO,BILI 02:46:00 [facility],BU/BC,ALT,AST,ALK PHOS) [place] BASIC METABOLIC PANEL (NA, K, CL, 2022-04-16 Aleena [facility] CO2, GLUCOSE, BUN, CREATININE, CA) 02:46:00 [facility] CBC WITH DIFF 2022-04-16 Aleena [facility] 02:46:00 [facility] URINALYSIS 2022-04-16 Aleena [facility] 02:46:00 [facility] RAPID STREP SCREEN FOR GROUP A 2022-04-16 Aleena [facility] niversity of 02:46:00 [facility] RAPID INFLUENZA A/B 2022-04-16 Aleena [facility] o f 02:46:00 [facility] N-TERMINAL PRO-BNP 2022-04-16 Aleena [facility] of 02:46:00 [facility] COVID-19 (ID NOW RAPID TESTING) 2022-04-16 Aleena [facility] of 02:46:00 [facility] NOTICE OF PRIVACY PRACTICES 2022-04-16 Doctor Unassigned, U niversity of 02:08:07 [facility] CONSENT/REFUSAL FOR DIAGNOSIS AND 2022-04-16 Doctor Buck olmedo [facility] 02:07:40 [facility] CREATINE KINASE 2022-04-10 Emily Salgado [facility] 02:05:00 [facility] MAGNESIUM 2022-04-10 Emily Salgado [facility] 02:05:00 [facility] AMMONIA, PLASMA 2022-04-10 Emily Salgado [facility] 02:05:00 [facility] COMP. METABOLIC PANEL (42303) 2022-04-10 Emily Salgado [facility] niversity of 02:05:00 [facility] CBC WITH DIFF 2022-04-10 Emily Salgado [facility] 02:05:00 [facility] PROTHROMBIN TIME / INR 2022-04-10 Emily Salgado [facility] 02:05:00 [facility] URINALYSIS 2022-04-10 Emily Salgado [facility] 02:05:00 [facility] CONSENT/REFUSAL FOR DIAGNOSIS AND 2022-04-10 Doctor Buck olmedo, [facility] 01:08:41 [facility] XR SHOULDER 2+ VW LEFT 2022-02-27 Viviana Ward 15:01:00 [facility] CBC WITH PLATELET AND DIFFERENTIAL 2022-02-27 Leah Sandoval 10:39:00 [facility] PROTHROMBIN TIME WITH INR 2022-02-27 Jeremy Sandoval Method ist 10:39:00 [facility] BASIC METABOLIC PANEL 2022-02-27 Jeremy Sandoval 10:39:00 [facility] HEPATIC FUNCTION PANEL 2022-02-27 Jeremy Sandoval Gnosticist 10:39:00 [facility] PHOSPHORUS LEVEL 2022-02-27 Jeremy Sandoval 10:39:00 [facility] MAGNESIUM LEVEL 2022-02-27 Jeremy Sandoval 10:39:00 [facility] ESTIMATED GFR 2022-02-27 Jeremy Sandoval 10:39:00 [facility] SMEAR REVIEW 2022-02-27 Jeremy Sandoval 10:39:00 [facility] POC GLUCOSE 2022-02-27 Jeremy Sandoval 09:38:00 [facility] CBC WITH PLATELET AND DIFFERENTIAL 2022-02-26 Leah Sandoval Gnosticist 11:53:00 [facility] PROTHROMBIN TIME WITH INR 2022-02-26 Jeremy Sandoval Method ist 11:53:00 [facility] BASIC METABOLIC PANEL 2022-02-26 Jeremy Sandovla Gnosticist 11:53:00 [facility] HEPATIC FUNCTION PANEL 2022-02-26 DinhomarJeremy Gnosticist 11:53:00 [facility] PHOSPHORUS LEVEL 2022-02-26 Jeremy Sandoval 11:53:00 [facility] MAGNESIUM LEVEL 2022-02-26 Jeremy Sandoval 11:53:00 [facility] HEMOGLOBIN A1C 2022-02-26 Jeremy Sandoval 11:53:00 [facility] ESTIMATED GFR 2022-02-26 Jeremy Sandoval 11:53:00 [facility] SMEAR REVIEW 2022-02-26 Jeremy Sandoval 11:53:00 [facility] AMYLASE LEVEL 2022-02-26 Jeremy Sandoval 11:53:00 [facility] GASTROINTESTINAL PANEL 2022-02-26 Myra Garcia ist 03:50:00 [facility] GASTROINTESTINAL PATHOGENS PANEL, 2022-02-26 Faustino Garciaist PCR 03:50:00 [facility] BLOOD CULTURE, AEROBIC & ANAEROBIC 2022-02-25 Laci Garcia chance Gnosticist 23:25:00 [facility] COVID-19 QUALITATIVE RT-PCR 2022-02-25 Stevo Hoskins odist 23:24:00 [facility] BLOOD CULTURE, AEROBIC & ANAEROBIC 2022-02-25 John Garciai chance Gnosticist 23:10:00 [facility] US ABDOMINAL LIMITED 2022-02-25 Myra Garcia t 21:58:[address] [facility] [address] ABDOMEN PELVIS W CONTRAST 2022-02-25 Stevo Hoskins hodist 21:28:38 [facility] ECG ED PRELIMINARY INTERPRETATION 2022-02-25 Stevo Hoskins 20:37:40 [facility] PROTHROMBIN TIME WITH INR 2022-02-25 Stevo Hoskins ist 20:18:00 [facility] PARTIAL THROMBOPLASTIN TIME (PTT) 2022-02-25 Stevo Hoskins 20:18:00 [facility] CBC WITH PLATELET AND DIFFERENTIAL 2022-02-25 Stevo Hoskins 19:55:00 [facility] COMPREHENSIVE METABOLIC PANEL 2022-02-25 Stevo Hoskins thodist 19:55:00 [facility] LIPASE LEVEL 2022-02-25 Stevo Hoskins 19:55:00 [facility] ESTIMATED GFR 2022-02-25 Rehrer, Orma Gnosticist 19:55:00 [facility] ECG 12-LEAD 2022-02-25 Rehrer, Orma Gnosticist 18:42:27 [facility] RAPID INFLUENZA A/B 2022-02-15 [facility] o f 21:31:00 [facility] COVID-19 (ID NOW RAPID TESTING) 2022-02-15 Ayers, [facility] of 21:31:00 [facility] URINALYSIS 2022-02-15 Ayers, [facility] 21:04:[address] [facility] [address] ABDOMEN PELVIS W CONTRAST 2022-02-15 [facility] versity of 20:35:57 [facility] LIPASE 2022-02-15 [facility] 20:[facility]00 [facility] COMP. METABOLIC PANEL (74285) 2022-02-15 [facility] iversity of 20:15:00 [facility] CBC WITH DIFF 2022-02-15 [facility] of 20:15:00 [facility] CONSENT/REFUSAL FOR DIAGNOSIS AND 2022-02-15 [facility] 19:[facility]00 [facility] PROTHROMBIN TIME WITH INR 2022-02-04 Carolin Sanches ist 11:20:00 Hospital PHOSPHORUS LEVEL 2022-02-04 Carolin Sanches 11:20:00 Hospital MAGNESIUM LEVEL 2022-02-04 Carolin Snaches 11:20:00 Hospital BASIC METABOLIC PANEL 2022-02-04 Carolin Sanches 11:20:00 Hospital HEPATIC FUNCTION PANEL 2022-02-04 Carolin Sanchesist 11:20:00 Hospital CBC HEMOGRAM 2022-02-04 Carolin Sanchesist 11:20:00 Hospital ESTIMATED GFR 2022-02-04 Carolin Sanches 11:20:00 Hospital SMEAR REVIEW 2022-02-04 Carolin Sanchesist 11:20:00 Hospital US UPPER GI TRACT, ENDOSCOPIC 2022-02-03 Carolin Sanches Pr thodist 19:36:00 Hospital PROTHROMBIN TIME WITH INR 2022-02-03 SanchesCarolin french Method ist 09:29:00 Hospital PHOSPHORUS LEVEL 2022-02-03 Verónica Carolin Diaz Gnosticist 09:29:00 Hospital MAGNESIUM LEVEL 2022-02-03 Verónica Carolin Diaz Gnosticist 09:29:00 Hospital BASIC METABOLIC PANEL 2022-02-03 SanchesCarolin Gnosticist 09:29:00 Hospital HEPATIC FUNCTION PANEL 2022-02-03 SanchesCarolin Gnosticist 09:29:00 Hospital CBC HEMOGRAM 2022-02-03 VerónicaCarolin Gnosticist 09:29:00 Hospital ESTIMATED GFR 2022-02-03 Nakia Cruz Gnosticist 09:29:00 Hospital SMEAR REVIEW 2022-02-03 Nakia Cruz Gnosticist 09:29:00 Hospital PROTHROMBIN TIME WITH INR 2022-02-02 Carolin Sanches Method ist 09:08:00 Hospital PHOSPHORUS LEVEL 2022-02-02 SanchesCarolin Gnosticist 09:08:00 Hospital MAGNESIUM LEVEL 2022-02-02 SanchesCarolin Gnosticist 09:08:00 Hospital BASIC METABOLIC PANEL 2022-02-02 SanchesCarolin Gnosticist 09:08:00 Hospital HEPATIC FUNCTION PANEL 2022-02-02 SanchesCarolin Gnosticist 09:08:00 Hospital CBC HEMOGRAM 2022-02-02 SanchesCarolin [facility]osticist 09:08:00 Hospital ESTIMATED GFR 2022-02-02 Nakia Cruz [facility] 09:08:00 Hospital SMEAR REVIEW 2022-02-02 Nakia Cruz [facility] 09:08:00 Hospital XR ABDOMEN 1 VW PORTABLE 2022-02-01 HusseinenastMyra Meth odist 22:39:25 [facility] ZZCOVID-19 ANTI-SPIKE IGG ANTIBODY 2022-02-01 Deepak Ward Gnosticist TITER 11:37:00 Hospital CBC WITH PLATELET AND DIFFERENTIAL 2022-02-01 Deepak Ward Gnostic[facility] 11:37:00 Hospital PROTHROMBIN TIME WITH INR 2022-02-01 Carolin Sanches Method ist 11:37:00 Hospital COMPREHENSIVE METABOLIC PANEL 2022-02-01 Bebeto Ward ethodist 11:37:00 Hospital PHOSPHORUS LEVEL 2022-02-01 Carolin Sanches Gnosticist 11:37:00 Hospital MAGNESIUM LEVEL 2022-02-01 Carolin Sanches Gnosticist 11:37:00 Hospital THYROID STIMULATING HORMONE 2022-02-01 Bebeto Ward Met hodist 11:37:00 Hospital T4 2022-02-01 Bebeto Wardist 11:37:00 Hospital VITAMIN D 25 HYDROXY LEVEL 2022-02-01 Bebeto Ward Meth odist 11:37:00 [facility] ZZCOVID-19 SEROLOGY PATIENT 2022-02-01 Bebeto Ward Met hodist SURVEILLANCE 11:37:00 Hospital ESTIMATED GFR 2022-02-01 Bebeto Ward 11:37:00 Hospital SMEAR REVIEW 2022-02-01 Bebeto Ward Gnosticist 11:37:00 Hospital COVID-19 QUALITATIVE RT-PCR 2022-02-01 June Clark Met hodist 03:59:00 [facility] LACTIC ACID LEVEL, SEPSIS - NOW 2022-02-01 Bebeto Ward AND REPEAT 2X EVERY 3 HOURS 03:45:[address] ABDOMEN PELVIS W CONTRAST 2022-02-01 June Clark thodist 02:53:55 [facility] BLOOD CULTURE, AEROBIC & ANAEROBIC 2022-02-01 Johnna Clark Gnosticist 02:09:00 [facility] URINE CULTURE 2022-02-01 June Clark Gnosticist 01:50:00 [facility] URINALYSIS SCREEN AND MICROSCOPY, 2022-02-01 Cristopher Clark Gnosticist WITH REFLEX TO CULTURE 01:50:00 [facility] COMPREHENSIVE METABOLIC PANEL 2022-02-01 Rolando Olivier Gnosticist 01:47:00 Hospital LIPASE LEVEL 2022-02-01 Rolando Olivier Gnosticist 01:47:00 Hospital ESTIMATED GFR 2022-02-01 Rolando Olivier Gnosticist 01:47:00 Hospital LACTIC ACID LEVEL, SEPSIS - NOW 2022-02-01 Bebeto Ward AND REPEAT 2X EVERY 3 HOURS 01:47:00 [facility]osp [facility] PROTHROMBIN TIME WITH INR 2022-02-01 June Clark Metho dist 01:47:00 [facility] PARTIAL THROMBOPLASTIN TIME (PTT) 2022-02-01 Cristopher Clark 01:47:00 [facility] AMMONIA LEVEL 2022-02-01 June Clark 01:47:00 [facility] BLOOD CULTURE, AEROBIC & ANAEROBIC 2022-02-01 Johnna Clark 01:45:00 [facility] ECG ED PRELIMINARY INTERPRETATION 2022-02-01 Cristopher Clarkist 01:18:19 [facility] URINE CULTURE 2022-02-01 Rolando Olivier 01:17:00 Hospital CBC WITH PLATELET AND DIFFERENTIAL 2022-02-01 Rolando Olivier 01:17:00 Hospital URINALYSIS SCREEN AND MICROSCOPY, 2022-02-01 Rolando Olivierist WITH REFLEX TO CULTURE 01:17:00 Hospital SMEAR REVIEW 2022-02-01 Rolando Olivier 01:17:00 Hospital ECG 12-LEAD 2022-01-31 Rolando Olivier 23:14:20 Hospital POC GLUCOSE 2022-01-06 Jeremy Sandoval 17:53:00 [facility] CBC WITH PLATELET AND DIFFERENTIAL 2022-01-06 Nakia Cruz 09:49:00 Hospital PROTHROMBIN TIME WITH INR 2022-01-06 Nakia Cruz ist 09:49:00 Hospital COMPREHENSIVE METABOLIC PANEL 2022-01-06 Jeremy Sandoval thodist 09:49:00 [facility] ESTIMATED GFR 2022-01-06 Jeremy Sandoval 09:49:00 [facility] SMEAR REVIEW 2022-01-06 Nakia Cruz 09:49:00 Hospital SURGICAL PATHOLOGY REQUEST 2022-01-05 Jeremy Sandoval dist 21:05:00 [facility] ESOPHAGOGASTRODUODENOSCOPY (EGD) 2022-01-05 Elias Guzman 20:55:00 Hospital CBC WITH PLATELET AND DIFFERENTIAL 2022-01-05 Nakia Cruz 09:38:00 Hospital PROTHROMBIN TIME WITH INR 2022-01-05 Nakia Cruz Method ist 09:38:00 Hospital COMPREHENSIVE METABOLIC PANEL 2022-01-05 Nakia Cruz thodist 09:38:00 Hospital PHOSPHORUS LEVEL 2022-01-05 Nakia Cruz Gnosticist 09:38:00 Hospital MAGNESIUM LEVEL 2022-01-05 Nakia Cruz Gnosticist 09:38:00 Hospital ESTIMATED GFR 2022-01-05 Nakia Cruz Gnosticist 09:38:00 Hospital SMEAR REVIEW 2022-01-05 Nakia Cruz Gnosticist 09:38:00 Hospital XR ABDOMEN 1 VW PORTABLE 2022-01-[address] 16:05:00 [facility] CBC WITH PLATELET AND DIFFERENTIAL 2022-01-04 Nakia Cruz Gnosticist 09:33:00 Hospital PROTHROMBIN TIME WITH INR 2022-01-04 Nakia Cruz Method ist 09:33:00 Hospital COMPREHENSIVE METABOLIC PANEL 2022-01-04 Nakia Cruz thodist 09:33:00 Hospital PHOSPHORUS LEVEL 2022-01-04 Nakia Cruz Gnosticist 09:33:00 Hospital MAGNESIUM LEVEL 2022-01-04 Nakia Cruz Gnosticist 09:33:00 Hospital ESTIMATED GFR 2022-01-04 Nakia Cruz Gnosticist 09:33:00 Hospital SMEAR REVIEW 2022-01-04 Nakia Cruz Gnosticist 09:33:00 Hospital XR ABDOMEN 1 VW PORTABLE 2022-01-03 Michelakasami, Jeremy Methodi st 16:09:48 [facility] ZZCOVID-19 ANTI-SPIKE IGG ANTIBODY 2022-01-03 Leah Sandoval Gnosticist TITER 09:01:00 [facility] CBC WITH PLATELET AND DIFFERENTIAL 2022-01-03 Nakia Cruz Gnosticist 09:01:00 Hospital PROTHROMBIN TIME WITH INR 2022-01-03 Nakia Cruz Method ist 09:01:00 Hospital COMPREHENSIVE METABOLIC PANEL 2022-01-03 Nakia Cruz thodist 09:01:00 Hospital PHOSPHORUS LEVEL 2022-01-03 Nakia Cruz Gnosticist 09:01:00 Hospital MAGNESIUM LEVEL 2022-01-03 Nakia Cruz Gnosticist 09:01:00 Hospital HEMOGLOBIN A1C 2022-01-03 Nakia Cruz 09:01:00 Hospital THYROID STIMULATING HORMONE 2022-01-03 Nakia Cruz odist 09:01:00 Hospital T4 2022-01-03 Nakia Cruz 09:01:00 [facility] VITAMIN D 25 HYDROXY LEVEL 2022-01-03 Nakia Cruzo dist 09:01:00 [facility] ZZCOVID-19 SEROLOGY PATIENT 2022-01-03 Jose Sandovalgenevieve Tanner odist SURVEILLANCE 09:01:00 [facility] AMYLASE LEVEL 2022-01-03 Cassandra Johnson 09:01:00 [facility] ESTIMATED GFR 2022-01-03 Nakia Cruz 09:01:00 Hospital SMEAR REVIEW 2022-01-03 Nakia Cruz 09:01:00 Hospital LIPASE LEVEL 2022-01-03 Nakia Cruz 09:01:00 [facility] XR ABDOMEN 1 VW PORTABLE 2022-01-02 Cassandra Johnson 15:46:00 [facility] URINALYSIS SCREEN AND MICROSCOPY, 2022-01-02 Vandana Bernstein WITH REFLEX TO CULTURE 10:37:00 [facility] HCG QUALITATIVE, URINE SCREEN 2022-01-02 Vandana Bernstein thodist 10:37:00 [facility] URINE CULTURE 2022-01-02 Vandana Bernstein 10:34:00 [facility] COVID-19 QUALITATIVE RT-PCR 2022-01-02 Vandana Bernstein odist 10:26:[address] [facility] [address] ABDOMEN PELVIS W CONTRAST 2022-01-02 aVndana Bernstein hodist 08:56:21 [facility] CBC WITH PLATELET AND DIFFERENTIAL 2022-01-02 Vandana Bernstein 05:47:00 [facility] COMPREHENSIVE METABOLIC PANEL 2022-01-02 Vandana Bernstein thodist 05:47:00 [facility] LIPASE LEVEL 2022-01-02 Vandana Bernstein 05:47:00 [facility] PROTHROMBIN TIME WITH INR 2022-01-02 Vandana Bernstein ist 05:47:00 [facility] PARTIAL THROMBOPLASTIN TIME (PTT) 2022-01-02 Vandana Bernstein 05:47:00 [facility] ESTIMATED GFR 2022-01-02 Vandana Bernstein 05:47:00 [facility] SMEAR REVIEW 2022-01-02 Vandana Bernstein 05:47:00 [facility] CBC WITH PLATELET AND DIFFERENTIAL 2021-12-18 Dinakar, Leah stuart Gnosticist 10:19:00 [facility] PROTHROMBIN TIME WITH INR 2021-12-18 Dinakar, Jeremy Method ist 10:19:00 [facility] BASIC METABOLIC PANEL 2021-12-18 Dinakar, Jeremy Gnosticist 10:19:00 [facility] HEPATIC FUNCTION PANEL 2021-12-18 Dinakar, Jeremy Gnosticist 10:19:00 [facility] PHOSPHORUS LEVEL 2021-12-18 Dinakar, Jeremy Gnosticist 10:19:00 [facility] MAGNESIUM LEVEL 2021-12-18 Dinakar, Jeremy Gnosticist 10:19:00 [facility] ESTIMATED GFR 2021-12-18 Dinakar, Jeremy Gnosticist 10:19:00 [facility] SMEAR REVIEW 2021-12-18 Dinakar, Jeremy Gnosticist 10:19:00 [facility] CBC WITH PLATELET AND DIFFERENTIAL 2021-12-17 Dinakar, Leah stuart Gnosticist 11:45:00 [facility] PROTHROMBIN TIME WITH INR 2021-12-17 Dinakar, Jeremy Method ist 11:45:00 [facility] BASIC METABOLIC PANEL 2021-12-17 Dinakar, Jeremy Gnosticist 11:45:00 [facility] HEPATIC FUNCTION PANEL 2021-12-17 Dinakar, Jeremy Gnosticist 11:45:00 [facility] PHOSPHORUS LEVEL 2021-12-17 Dinakar, Jeremy Gnosticist 11:45:00 [facility] MAGNESIUM LEVEL 2021-12-17 Dinakar, Jeremy Gnosticist 11:45:00 [facility] ESTIMATED GFR 2021-12-17 Dinakar, Jeremy Gnosticist 11:45:00 [facility] SMEAR REVIEW 2021-12-17 Dinakar, Jeremy Gnosticist 11:45:00 [facility] NM GI BLEEDING STUDY 2021-12-16 Elias Guzman 20:06:11 Hospital MRI CHOLANGIOGRAM WO CONTRAST 2021-12-16 Elias Guzman thodist 13:57:00 Hospital MRI ABDOMEN W WO CONTRAST 2021-12-16 Elias Guzman Method ist 13:56:00 Hospital CBC WITH PLATELET AND DIFFERENTIAL 2021-12-16 Dinakar, Leah stuart Gnosticist 11:26:00 [facility] PROTHROMBIN TIME WITH INR 2021-12-16 Jeremy Sandoval Method ist 11:26:00 [facility] BASIC METABOLIC PANEL 2021-12-16 Dinakar, Jeremy Gnosticist 11:26:00 [facility] HEPATIC FUNCTION PANEL 2021-12-16 Dinakar, Jeremy Gnosticist 11:26:00 [facility] PHOSPHORUS LEVEL 2021-12-16 Dinakar, Jeremy Gnosticist 11:26:00 [facility] MAGNESIUM LEVEL 2021-12-16 Dinakar, Jeremy Gnosticist 11:26:00 [facility] ESTIMATED GFR 2021-12-16 DinarJeremy Gnosticist 11:26:00 [facility] SMEAR REVIEW 2021-12-16 DinarJeremy Gnosticist 11:26:00 [facility] BASIC METABOLIC PANEL 2021-12-15 Ward, Bebeto Gnosticist 12:30:00 Hospital ESTIMATED GFR 2021-12-15 Deepak Wardtor Gnosticist 12:30:00 [facility] HEPATIC FUNCTION PANEL 2021-12-15 Depeak Wardtor Methodis t 12:30:00 Hospital MAGNESIUM LEVEL 2021-12-15 Ward, Bebeto Gnosticist 12:30:00 Hospital PHOSPHORUS LEVEL 2021-12-15 Ward, Bebeto Gnosticist 12:30:00 Hospital CBC HEMOGRAM 2021-12-15 WardDeepakBebeto Gnosticist 12:30:00 Hospital PROTHROMBIN TIME WITH INR 2021-12-15 Ward, Bebeto Metho dist 12:30:00 Hospital C-REACTIVE PROTEIN 2021-12-15 Deepak Wardtor Gnosticist 12:30:00 Hospital SMEAR REVIEW 2021-12-15 Ward, Bebeto Gnosticist 12:30:00 Hospital CBC WITH PLATELET AND DIFFERENTIAL 2021-12-15 Dinakar, Leah stuart Gnosticist 11:14:00 [facility] CBC WITH PLATELET AND DIFFERENTIAL 2021-12-15 Dinakar, Leah stuart Gnosticist 11:14:00 [facility] PROTHROMBIN TIME WITH INR 2021-12-15 Dinakar, Jeremy Method ist 11:14:00 [facility] BASIC METABOLIC PANEL 2021-12-15 Dinakar, Jeremy Gnosticist 11:14:00 [facility] HEPATIC FUNCTION PANEL 2021-12-15 Dinakar, Jeremy Gnosticist 11:14:00 [facility] PHOSPHORUS LEVEL 2021-12-15 Dinakar, Jeremy Gnosticist 11:14:00 [facility] MAGNESIUM LEVEL 2021-12-15 Dinakar, Jeremy Gnosticist 11:14:00 [facility] C-REACTIVE PROTEIN 2021-12-15 Ward, Bebeto Gnosticist 11:14:00 Hospital ESTIMATED GFR 2021-12-15 Dinakar, Jeremy Gnosticist 11:14:00 [facility] CBC WITH PLATELET AND DIFFERENTIAL 2021-12-14 Dinakar, Leah stuart Gnosticist 10:39:00 [facility] PROTHROMBIN TIME WITH INR 2021-12-14 Dinakar, Jeremy Method ist 10:39:00 [facility] BASIC METABOLIC PANEL 2021-12-14 Dinakar, Jeremy Gnosticist 10:39:00 [facility] HEPATIC FUNCTION PANEL 2021-12-14 Dinakar, Jeremy Gnosticist 10:39:00 [facility] PHOSPHORUS LEVEL 2021-12-14 Dinakar, Jeremy Gnosticist 10:39:00 [facility] MAGNESIUM LEVEL 2021-12-14 Dinakar, Jeremy Gnosticist 10:39:00 [facility] C-REACTIVE PROTEIN 2021-12-14 WardBebeto Gnosticist 10:39:00 Hospital FERRITIN LEVEL 2021-12-14 WardBebeto Gnosticist 10:39:00 Hospital FOLATE LEVEL 2021-12-14 Bebeto Ward Gnosticist 10:39:00 Hospital HAPTOGLOBIN 2021-12-14 Bebeto Ward Gnosticist 10:39:00 Hospital VITAMIN B12 LEVEL 2021-12-14 Bebeto Ward Gnosticist 10:39:00 Hospital TOTAL IRON BINDING CAPACITY 2021-12-14 Bebeto Ward hodnohelia 10:39:00 Hospital RETICULOCYTE COUNT 2021-12-14 Bebeto Ward 10:39:00 Hospital LDH 2021-12-14 Bebeto Ward 10:39:00 Hospital ESTIMATED GFR 2021-12-14 Jeremy Sandoval 10:39:00 [facility] VENIPUNC NEED PHYS SKILL,DX OR RX 2021-12-13 Latanya Ring Gnosticist 21:45:17 Hospital CBC WITH PLATELET AND DIFFERENTIAL 2021-12-13 Leah Sandoval Gnosticist 07:40:00 [facility] PROTHROMBIN TIME WITH INR 2021-12-13 Jeremy Sandoval ist 07:40:00 [facility] BASIC METABOLIC PANEL 2021-12-13 Jeremy Sandoval 07:40:00 [facility] HEPATIC FUNCTION PANEL 2021-12-13 Jeremy Sandoval 07:40:00 [facility] PHOSPHORUS LEVEL 2021-12-13 Jeremy Sandoval 07:40:00 [facility] MAGNESIUM LEVEL 2021-12-13 Jeremy Sandoval 07:40:00 [facility] HEMOGLOBIN A1C 2021-12-13 Jeremy Sandoval 07:40:00 [facility] C-REACTIVE PROTEIN 2021-12-13 Bebeto Ward 07:40:00 Hospital SEDIMENTATION RATE 2021-12-13 Bebeto Ward 07:40:00 Hospital LDH 2021-12-13 Bebeto Ward 07:40:00 Hospital LIPASE LEVEL 2021-12-13 Bebeto Ward 07:40:00 Hospital GGT 2021-12-13 Bebeto Ward 07:40:00 Hospital ESTIMATED GFR 2021-12-13 Jeremy Sandoval 07:40:00 [facility] SMEAR REVIEW 2021-12-13 Jeremy Sandoval 07:40:00 [facility] BLOOD CULTURE, AEROBIC & ANAEROBIC 2021-12-12 Leah Sandoval 12:00:00 [facility] BLOOD CULTURE, AEROBIC & ANAEROBIC 2021-12-12 Leah Sandoval 11:42:00 [facility] ZZCOVID-19 ANTI-SPIKE IGG ANTIBODY 2021-12-12 Leah Sandoval TITER 11:40:00 [facility] TROPONIN T 2021-12-12 RehrerStevoist 11:40:00 [facility] CBC WITH PLATELET AND DIFFERENTIAL 2021-12-12 Leah Sandoval Gnosticist 11:40:00 [facility] ZZCOVID-19 SEROLOGY PATIENT 2021-12-12 Jeremy Sandoval SURVEILLANCE 11:40:00 [facility] SMEAR REVIEW 2021-12-12 Jeremy Sandoval 11:40:00 [facility] TROPONIN T 2021-12-12 RehrerStevo 09:10:00 [facility] LACTIC ACID LEVEL, SEPSIS - NOW 2021-12-12 Rehrer, Stevo Kyle AND REPEAT 2X EVERY 3 HOURS 09:10:00 [facility] ital CT ABDOMEN PELVIS W CONTRAST 2021-12-12 RehrerStevoist 06:58:00 [facility] ECG ED PRELIMINARY INTERPRETATION 2021-12-12 RehrerStevo 05:33:45 [facility] URINE CULTURE 2021-12-12 RehrerStevo 04:28:00 [facility] URINALYSIS SCREEN AND MICROSCOPY, 2021-12-12 Rehrer, Stevo Kyle WITH REFLEX TO CULTURE 03:45:00 [facility] COVID-19 QUALITATIVE RT-PCR 2021-12-12 RehreStevo potts odist 03:30:00 [facility] PROTHROMBIN TIME WITH INR 2021-12-12 RehrerStevo ist 03:30:00 [facility] PARTIAL THROMBOPLASTIN TIME (PTT) 2021-12-12 RehrerStevo 03:30:00 [facility] LIPASE LEVEL 2021-12-12 Rehrer, Stevo Rileyist 03:30:00 [facility] TROPONIN T 2021-12-12 Rehrer, Stevo Kyle 03:30:00 [facility] B NATRIURETIC PEPTIDE 2021-12-12 Rehrer, Stevo Kyle 03:30:00 [facility] TYPE AND SCREEN 2021-12-12 Rehrer, Stevo Kyle 03:30:00 [facility] LACTIC ACID LEVEL, SEPSIS - NOW 2021-12-12 Tamie Silveira AND REPEAT 2X EVERY 3 HOURS 03:30:00 [facility] ECG 12-LEAD 2021-12-12 WhitleyreStevo potts 03:08:12 [facility] CBC WITH PLATELET AND DIFFERENTIAL 2021-12-11 Tamie Silveira 22:48:00 Hospital COMPREHENSIVE METABOLIC PANEL 2021-12-11 Tamie Silveira thodist 22:48:00 Hospital LIPASE LEVEL 2021-12-11 Tamie Silveira 22:48:00 Hospital LACTIC ACID LEVEL, SEPSIS - NOW 2021-12-11 Tamie Silveira AND REPEAT 2X EVERY 3 HOURS 22:48:00 [facility] ESTIMATED GFR 2021-12-11 Tamie Silveira 22:48:00 Hospital SMEAR REVIEW 2021-12-11 Tamie Silveira 22:48:00 [facility] CBC WITH PLATELET AND DIFFERENTIAL 2021-12-03 DinakarLeah Gnosticist 11:14:00 [facility] PROTHROMBIN TIME WITH INR 2021-12-03 MichelakaJeremy potts Method ist 11:14:00 [facility] BASIC METABOLIC PANEL 2021-12-03 Dinakar Jeremy Gnosticist 11:14:00 [facility] HEPATIC FUNCTION PANEL 2021-12-03 DinarJeremy Gnosticist 11:14:00 [facility] PHOSPHORUS LEVEL 2021-12-03 Dinakar Jeremy Gnosticist 11:14:00 [facility] MAGNESIUM LEVEL 2021-12-03 Dinakar Jeremy Gnosticist 11:14:00 [facility] ESTIMATED GFR 2021-12-03 Jeremy Sandoval Gnosticist 11:14:00 [facility] SMEAR REVIEW 2021-12-03 Dinakar Jeremy Gnosticist 11:14:00 [facility] US DUPLEX VENOUS UPPER EXTREMITY 2021-12-02 Nakia Cruz LEFT 18:10:00 Hospital CBC WITH PLATELET AND DIFFERENTIAL 2021-12-02 DinarLeah 09:59:00 [facility] PROTHROMBIN TIME WITH INR 2021-12-02 Dinakar Jeremy Method ist 09:59:00 [facility] BASIC METABOLIC PANEL 2021-12-02 DinakarJeremy Gnosticist 09:59:00 [facility] HEPATIC FUNCTION PANEL 2021-12-02 Dinakar, Jeremy Gnosticist 09:59:00 [facility] PHOSPHORUS LEVEL 2021-12-02 Dinakar, Jeremy Gnosticist 09:59:00 [facility] MAGNESIUM LEVEL 2021-12-02 Dinakar, Jeremy Gnosticist 09:59:00 [facility] ESTIMATED GFR 2021-12-02 Dinakar, Jeremy Gnosticist 09:59:00 [facility] CBC WITH PLATELET AND DIFFERENTIAL 2021-12-01 Dinakar, Leah stuart Gnosticist 10:22:00 [facility] PROTHROMBIN TIME WITH INR 2021-12-01 Dinakar, Jeremy Method ist 10:22:00 [facility] BASIC METABOLIC PANEL 2021-12-01 Dinakar, Jeremy Gnosticist 10:22:00 [facility] HEPATIC FUNCTION PANEL 2021-12-01 Dinakar, Jeremy Gnosticist 10:22:00 [facility] PHOSPHORUS LEVEL 2021-12-01 Dinakar, Jeremy Gnosticist 10:22:00 [facility] MAGNESIUM LEVEL 2021-12-01 Dinakar, Jeremy Gnosticist 10:22:00 [facility] ESTIMATED GFR 2021-12-01 Dinakar, Jeremy Gnosticist 10:22:00 [facility] SMEAR REVIEW 2021-12-01 Dinakar, Jeremy Gnosticist 10:22:00 [facility] ESOPHAGOGASTRODUODENOSCOPY (EGD) 2021-11-30 Elias Guzman Gnosticist 19:49:00 Hospital CBC WITH PLATELET AND DIFFERENTIAL 2021-11-30 Dinakar, Leah stuart Gnosticist 10:53:00 [facility] PROTHROMBIN TIME WITH INR 2021-11-30 Dinakar, Jeremy Method ist 10:53:00 [facility] BASIC METABOLIC PANEL 2021-11-30 Dinakar, Jeremy Gnosticist 10:53:00 [facility] HEPATIC FUNCTION PANEL 2021-11-30 Dinakar, Jeremy Gnosticist 10:53:00 [facility] PHOSPHORUS LEVEL 2021-11-30 Dinakar, Jeremy Gnosticist 10:53:00 [facility] MAGNESIUM LEVEL 2021-11-30 Dinakar, Jeremy Gnosticist 10:53:00 [facility] ESTIMATED GFR 2021-11-30 Dinakar, Jeremy Gnosticist 10:53:00 [facility] SMEAR REVIEW 2021-11-30 Dinakar, Jeremy Gnosticist 10:53:00 [facility] CBC WITH PLATELET AND DIFFERENTIAL 2021-11-29 Dinakar, Sati sade Gnosticist 10:50:00 [facility] PROTHROMBIN TIME WITH INR 2021-11-29 Dinakar, Jeremy Method ist 10:50:00 [facility] BASIC METABOLIC PANEL 2021-11-29 Dinakar, Jeremy Gnosticist 10:50:00 [facility] HEPATIC FUNCTION PANEL 2021-11-29 Dinakar, Jeremy Gnosticist 10:50:00 [facility] PHOSPHORUS LEVEL 2021-11-29 Dinakar, Jeremy Gnosticist 10:50:00 [facility] MAGNESIUM LEVEL 2021-11-29 Dinakar, Jeremy Gnosticist 10:50:00 [facility] ESTIMATED GFR 2021-11-29 Dinakar, Jeremy Gnosticist 10:50:00 [facility] SMEAR REVIEW 2021-11-29 Dinakar, Jeremy Gnosticist 10:50:00 [facility] CBC WITH PLATELET AND DIFFERENTIAL 2021-11-28 Dinakar, Sati sh Gnosticist 09:28:00 [facility] CBC WITH PLATELET AND DIFFERENTIAL 2021-11-28 Dinakar, Sati sade Gnosticist 09:28:00 [facility] PROTHROMBIN TIME WITH INR 2021-11-28 Dinakar, Jeremy Method ist 09:28:00 [facility] BASIC METABOLIC PANEL 2021-11-28 Dinakar, Jeremy Gnosticist 09:28:00 [facility] HEPATIC FUNCTION PANEL 2021-11-28 Dinakar, Jeremy Gnosticist 09:28:00 [facility] PHOSPHORUS LEVEL 2021-11-28 Dinakar, Jeremy Gnosticist 09:28:00 [facility] MAGNESIUM LEVEL 2021-11-28 Dinakar, Jeremy Gnosticist 09:28:00 [facility] ESTIMATED GFR 2021-11-28 Dinakar, Jeremy Gnosticist 09:28:00 [facility] OCCULT BLOOD, STOOL 2021-11-27 Jefferson Skelton Gnosticist 23:26:00 Hospital XR ABDOMEN 1 VW PORTABLE 2021-11-27 Myra Garcia odist 20:25:00 [facility] CBC WITH PLATELET AND DIFFERENTIAL 2021-11-27 Dinakar, Sati sade Gnosticist 09:07:00 [facility] PROTHROMBIN TIME WITH INR 2021-11-27 Jeremy Sandoval Method ist 09:07:00 [facility] BASIC METABOLIC PANEL 2021-11-27 Jeremy Sandoval 09:07:00 [facility] HEPATIC FUNCTION PANEL 2021-11-27 Jeremy Sandoval Gnosticist 09:07:00 [facility] PHOSPHORUS LEVEL 2021-11-27 Jeremy Sandoval Gnosticist 09:07:00 [facility] MAGNESIUM LEVEL 2021-11-27 Jeremy Sandoval Gnosticist 09:07:00 [facility] HEMOGLOBIN A1C 2021-11-27 Jeremy Sandoval Gnosticist 09:07:00 [facility] ESTIMATED GFR 2021-11-27 Jeremy Sandoval 09:07:00 [facility] SMEAR REVIEW 2021-11-27 Jeremy Sandoval 09:07:00 [facility] BLOOD CULTURE, AEROBIC & ANAEROBIC 2021-11-27 Leah Sandoval 04:03:00 [place] [id number] ANTI-SPIKE IGG ANTIBODY 2021-11-27 Leah Sandoval TITER 04:03:00 [place] [id number] SEROLOGY PATIENT 2021-11-27 Jeremy Sandoval SURVEILLANCE 04:03:00 [facility] CTA ABD/PEL FOR BLEEDING 2021-11-27 Jefferson [...] 00:30:00 Hospital AMMONIA LEVEL 2021-11-27 Jefferson Skelton Gnosticist 00:30:00 Hospital ECG 12-LEAD 2021-11-27 Jefferson Skelton Gnosticist 00:29:32 Hospital ECG ED PRELIMINARY INTERPRETATION 2021-11-27 Jefferson Skelton Gnosticist 00:04:12 Hospital CBC WITH PLATELET AND DIFFERENTIAL 2021-11-26 Jefferson Skelton Gnosticist 21:32:00 [facility] COMPREHENSIVE METABOLIC PANEL 2021-11-26 Jefferson Skelton Gnosticist 21:32:00 Hospital LIPASE LEVEL 2021-11-26 Jefferson Skelton Gnosticist 21:32:00 Hospital HCG QUALITATIVE, SERUM SCREEN 2021-11-26 Jefferson Skelton Gnosticist 21:32:00 Hospital ESTIMATED GFR 2021-11-26, Yen-Balwinder Gnosticist 21:32:00 [facility] SMEAR REVIEW 2021-11-26, Yen-Te Gnosticist 21:32:00 [facility] CBC WITH PLATELET AND DIFFERENTIAL 2021-10-26 Nakia Cruz 11:26:00 Hospital PROTHROMBIN TIME WITH INR 2021-10-26 Nakia Cruz ist 11:26:00 [facility] BASIC METABOLIC PANEL 2021-10-26 Anand Arora Gnosticist 11:26:00 [facility] ESTIMATED GFR 2021-10-26 Anand Arora Gnosticist 11:26:00 [facility] SMEAR REVIEW 2021-10-26 Nakia Cruzist 11:26:00 [facility] CBC WITH PLATELET AND DIFFERENTIAL 2021-10-25 Nakia Cruz 09:30:00 Hospital PROTHROMBIN TIME WITH INR 2021-10-25 Nakia Cruz ist 09:30:00 [facility] COMPREHENSIVE METABOLIC PANEL 2021-10-25 Nakia Cruz thodist [...] 09:17:00 Hospital PHOSPHORUS LEVEL 2021-10-24 Nakia Cruz Gnosticist 09:17:00 Hospital MAGNESIUM LEVEL 2021-10-24 Nakia Cruz Gnosticist 09:17:00 Hospital ESTIMATED GFR 2021-10-24 Nakia Cruz Gnosticist 09:17:00 Hospital SMEAR REVIEW 2021-10-24 Nakia Cruz Gnosticist 09:17:00 Hospital ESOPHAGOGASTRODUODENOSCOPY (EGD) 2021-10-23 Elias Guzman Gnosticist 17:25:00 Hospital CBC WITH PLATELET AND DIFFERENTIAL 2021-10-23 Nakia Cruz Gnosticist 11:38:00 Hospital PROTHROMBIN TIME WITH INR 2021-10-23 Nakia Cruz Method ist 11:38:00 Hospital COMPREHENSIVE METABOLIC PANEL 2021-10-23 Nakia Cruz thodist 11:38:00 Hospital PHOSPHORUS LEVEL 2021-10-23 Nakia Cruz Gnosticist 11:38:00 Hospital MAGNESIUM LEVEL 2021-10-23 Nakia Cruz Gnosticist 11:38:00 Hospital ESTIMATED GFR 2021-10-23 Nakia Cruz Gnosticist 11:38:00 Hospital SMEAR REVIEW 2021-10-23 Nakia Cruz Gnosticist 11:38:00 [facility] TTE COMPLETE, W CONTRAST, W 2021-10-22 Myra Garcia ethodist DOPPLER ([id number]) 14:21:00 [facility] CBC WITH PLATELET AND DIFFERENTIAL 2021-10-22 Nakia Cruz Gnosticist 10:31:00 Hospital PROTHROMBIN TIME WITH INR 2021-10-22 Nakia Cruz Method ist 10:31:00 Hospital COMPREHENSIVE METABOLIC PANEL 2021-10-22 Nakia Cruz thodist 10:31:00 Hospital PHOSPHORUS LEVEL 2021-10-22 Nakia Cruz Gnosticist 10:31:00 Hospital MAGNESIUM LEVEL 2021-10-22 Nakia Cruz Gnosticist 10:31:00 Hospital THYROID STIMULATING HORMONE 2021-10-22 Nakia Cruz Meth odist 10:31:00 Hospital T4 2021-10-22 Nakia Cruz 10:31:00 Hospital VITAMIN D 25 HYDROXY LEVEL 2021-10-22 Nakia Cruzo dist 10:31:00 Hospital ALPHA FETOPROTEIN 2021-10-22 Myra Garcia 10:31:00 [facility] ESTIMATED GFR 2021-10-22 Nakia Cruz 10:31:00 Hospital SMEAR REVIEW 2021-10-22 Nakia Cruz 10:31:00 Hospital COVID-19 QUALITATIVE RT-PCR 2021-10-22 Nakia Cruz 00:29:00 Hospital URINE CULTURE 2021-10-21 Nakia Cruz 22:46:00 [facility] URINALYSIS SCREEN AND MICROSCOPY, 2021-10-21 Nakia Cruz WITH REFLEX TO CULTURE 22:46:00 [facility] XR ABDOMEN 1 VW PORTABLE 2021-10-21 Myra Garcia odist 22:35:[address] [facility] [address] ABDOMEN PELVIS WO CONTRAST 2021-10-21 Nakia Cruz thodist 20:20:30 [place] [id number] ANTI-SPIKE IGG ANTIBODY 2021-10-21 Nakia Cruz TITER 16:31:00 [facility] CBC WITH PLATELET AND DIFFERENTIAL 2021-10-21 Nakia Cruz 16:31:00 [facility] COMPREHENSIVE METABOLIC PANEL 2021-10-21 Nakia Cruz thodist 16:31:00 [facility] PROTHROMBIN TIME WITH INR 2021-10-21 Nakia Cruz ist 16:31:00 Hospital MAGNESIUM LEVEL 2021-10-21 Nakia Cruz 16:31:00 Hospital PHOSPHORUS LEVEL 2021-10-21 Nakia Cruz 16:31:00 Hospital LIPASE LEVEL 2021-10-21 Nakia Cruz 16:31:00 [place] [address] SEROLOGY PATIENT 2021-10-21 Nakia Cruz SURVEILLANCE 16:31:00 Hospital ESTIMATED GFR 2021-10-21 Nakia Cruz 16:31:00 [facility] XR KNEE 3 VW RIGHT 2021-09-29 Sukhdev Soto [facility] 04:06:00 [facility] NOTICE OF PRIVACY PRACTICES 2021-09-29 Doctor Ceciliasslis [facility] of 02:46:43 [place] [facility] CONSENT/REFUSAL FOR DIAGNOSIS AND 2021-09-29 Doctor Buck olmedo, [facility] 02:46:16 [place] [facility] XR KNEE 3 VW LEFT 2021-04-[address] [facility] 20:10:39 F [facility] CONSENT/REFUSAL FOR DIAGNOSIS AND 2021-04-02 Doctor Buck olmedo, [facility] 17:59:31 [place] [facility] ASSIGNMENT OF BENEFITS 2021-03-10 Doctor Ceciliasslis, Univer sity of 20:29:46 [place] [facility] HC COMPLETE BLD COUNT W/AUTO DIFF 2021-02-20 Anabella Suresh 10:53:00 [facility] BASIC METABOLIC PANEL 2021-02-20 Anabella Suresh 10:53:00 [facility] HEPATIC FUNCTION PANEL 2021-02-20 Anabella Suresh 10:53:00 [facility] MAGNESIUM LEVEL 2021-02-20 Anabella Suresh 10:53:00 [facility] PHOSPHORUS LEVEL 2021-02-20 Anabella Suresh 10:53:00 [facility] PROTHROMBIN TIME WITH INR 2021-02-20 Rosemary Suresh 10:53:00 [facility] ESTIMATED GFR 2021-02-20 Anabella Suresh 10:53:00 [facility] SMEAR REVIEW 2021-02-20 Anabella Suresh 10:53:00 [facility] MRI CHOLANGIOGRAM WO CONTRAST 2021-02-20 Jeremy Sandoval Pr thodist 00:15:00 [facility] VENIPUNC NEED PHYS SKILL,DX OR RX 2021-02-19 Latanya Ring lda Gnostic[facility] 16:10:21 Hospital HC COMPLETE BLD COUNT W/AUTO DIFF 2021-02-19 Anabella Suresh 11:00:00 [facility] BASIC METABOLIC PANEL 2021-02-19 Anabella Suresh 11:00:00 [facility] HEPATIC FUNCTION PANEL 2021-02-19 Anabella Suresh 11:00:00 [facility] MAGNESIUM LEVEL 2021-02-19 Anabella Suresh 11:00:00 [facility] PHOSPHORUS LEVEL 2021-02-19 Anabella Suresh 11:00:00 [facility] PROTHROMBIN TIME WITH INR 2021-02-19 Rosemary Suresh ist 11:00:00 [facility] ESTIMATED GFR 2021-02-19 Anabella Suresh 11:00:00 [facility] SMEAR REVIEW 2021-02-19 Anabella Suresh 11:00:[address] [facility] [address] ABDOMEN PELVIS WO CONTRAST 2021-02-19 Me Demetrice thodist 03:25:00 [facility] URINE CULTURE 2021-02-19 Anabella Suresh 02:27:00 [facility] URINALYSIS SCREEN AND MICROSCOPY, 2021-02-19 Anabella Suresh WITH REFLEX TO CULTURE 02:27:00 [facility] BLOOD CULTURE, AEROBIC & ANAEROBIC 2021-02-18 Anabella Suresh 23:25:00 [facility] TYPE AND SCREEN 2021-02-18 Dre Mayer 23:25:00 [facility] COVID-19 ANTI-SPIKE IGG ANTIBODY 2021-02-18 Anabella Suresh TITER 22:57:00 [facility] COVID-19 SEROLOGY PATIENT 2021-02-18 Rosemary Suresh ispb SURVEILLANCE 22:57:00 [facility] HC COMPLETE BLD COUNT W/AUTO DIFF 2021-02-18 Anabella Suresh 22:57:00 [facility] PROTHROMBIN TIME WITH INR 2021-02-18 Rosemary Suresh ist 22:57:00 [facility] COMPREHENSIVE METABOLIC PANEL 2021-02-18 Me Demetrice thodist 22:57:00 [facility] LACTIC ACID LEVEL 2021-02-18 Anabella Suresh 22:57:00 [facility] MAGNESIUM LEVEL 2021-02-18 Anabella Suresh 22:57:00 [facility] PHOSPHORUS LEVEL 2021-02-18 Anabella Suresh 22:57:00 [facility] LIPASE LEVEL 2021-02-18 Anabella Suresh 22:57:00 [facility] ESTIMATED GFR 2021-02-18 Anabella Suresh 22:57:00 [facility] SMEAR REVIEW 2021-02-18 Anabella Suresh 22:57:00 [facility] PHOSPHORUS 2020-10-03 Brenda Teixeira of 08:52:00 [facility] MAGNESIUM 2020-10-03 Brenda Teixeira [facility] of 08:52:00 [facility] COMP. METABOLIC PANEL ([id number]) 2020-10-03 Brenda Teixeira Un iversity of 08:52:00 [facility] CBC WITH DIFF 2020-10-03 Brenda Teixeira of 08:52:00 [facility] COMP. METABOLIC PANEL ([id number]) 2020-10-02 Brenda Teixeira Un iversity of 08:39:00 [facility] CBC WITH DIFF 2020-10-02 Brenda Teixeira of 08:39:00 [facility] US DUPLEX VENOUS ARM LEFT - BY 2020-10-01 Brenda Teixeira U niversity of VASCULAR LAB 16:22:58 [facility] COMP. METABOLIC PANEL ([id number]) 2020-10-01 Tomasa Rucker Un iversity of 07:45:00 [facility] CBC WITH DIFF 2020-10-01 Tomasa Rucker [facility] of 07:45:00 [facility] TROPONIN I 2020-09-30 [facility] of 10:56:00 [facility] COMP. METABOLIC PANEL ([id number]) 2020-09-30 Shaina Pinto Un iversity of 10:56:00 [facility] CBC WITH DIFF 2020-09-30 Shaina Pinto of 10:56:00 [facility] N-TERMINAL PRO-BNP 2020-09-30 Shaina Pinto of 08:05:00 [facility] OCCULT (GUAIAC) BLOOD 2020-09-30 Shaina Pinto of 02:10:00 [facility] FECAL LEUKOCYTES 2020-09-30 Shaina Pinto of 02:10:00 [facility] CLOSTRIDIUM DIFFICILE TOXIN 2020-09-30 Shaina Pinto [facility] of 02:10:00 [facility] FECAL PATHOGENS BY PCR 2020-09-30 Shaina Pinto [facility] y of 02:10:00 [facility] POCT GLUCOSE (AUTOMATED) 2020-09-30 Rene Evans Univer sity of 00:35:00 [facility] BASIC METABOLIC PANEL (NA, K, CL, 2020-09-29 Millie [facility] of CO2, GLUCOSE, BUN, CREATININE, CA) 21:11:00 [facility] HEMOGLOBIN 2020-09-29 Tomasa Rucker [facility] of 21:11:00 [facility] TRANSTHORACIC ECHO (TTE) COMPLETE 2020-09-29 Marco Levy [facility] of 16:03:00 [facility] HB ECG ROUTINE & RHYTHM STRIP 2020-09-29 Shaina Pinto iversity of 11:18:58 [facility] OSMOLALITY URINE 2020-09-29 Millie [facility] of 08:56:00 [facility] URINE CULTURE 2020-09-29 Millie [facility] of 08:56:00 [facility] SODIUM, URINE RANDOM 2020-09-29 Millie [facility] of 08:56:00 [facility] PROTEIN CREAT RATIO URINE RANDOM 2020-09-29 Millie [facility] of 08:56:00 [facility] BLOOD CULTURE SCREEN 2020-09-29 Millie [facility] of 08:32:00 [facility] LACTIC ACID WHOLE BLOOD 2020-09-29 [facility]ie [facility] ty of 08:32:00 [facility] VITAMIN B12, LEVEL 2020-09-29 Millie [facility] of 08:31:00 [facility] C-REACTIVE PROTEIN 2020-09-29 Millei [facility] of 08:31:00 [facility] IRON PANEL 2020-09-29 Millie [facility] of 08:31:00 [facility] SEDIMENTATION RATE 2020-09-29 Millie [facility] of 08:31:00 [facility] DIFF CONSULT INTERPRETATION 2020-09-29 [facility] 08:31:00 [facility] CBC WITH DIFF 2020-09-29 Millie [facility] of 08:31:00 [facility] PROTHROMBIN TIME / INR 2020-09-29 Shaina Pinto [facility] y of 08:31:00 [facility] N-TERMINAL PRO-BNP 2020-09-29 Shaina Pinto [facility] of 08:31:00 [facility] VITAMIN D, 25-OH 2020-09-29 Shaina Pinto [facility] of 08:31:00 [facility] PROCALCITONIN 2020-09-29 Millie [facility] of 08:31:00 [facility] COVID-19 (ID NOW RAPID TESTING) 2020-09-29 Rene Evans [facility] of 05:10:00 [facility] LAB ONLY COVID INTERPRETATION 2020-09-29 Rene Evans [facility] of 05:10:[address] [facility] [address] ABDOMEN PELVIS W CONTRAST 2020-09-29 Rene Evans Un iversity of 04:56:31 [facility] URINALYSIS 2020-09-29 Rene Evans [facility] of 04:19:00 [facility] PHOSPHORUS 2020-09-29 Shaina Pinto [facility] of 03:54:00 [facility] CREATINE KINASE 2020-09-29 Millie sharad [facility] of 03:54:00 [facility] URIC ACID 2020-09-29 Shaina Pinto [facility] of 03:54:00 [facility] LIPASE 2020-09-29 Rene Evans [facility] of 03:54:00 [facility] MAGNESIUM 2020-09-29 [facility] 03:54[facility]00 [facility] FERRITIN SERUM 2020-09-29 Shaina Pinto [facility] of 03:54:00 [facility] TROPONIN I 2020-09-29 [facility] of 03:54:00 [facility] THYROID STIMULATING HORMONE 2020-09-29 Shaina Pinto [facility] ersity of 03:54:00 [facility] COMP. METABOLIC PANEL ([id number]) 2020-09-29 Rene Evans niversity of 03:54:00 [facility] LIPID PANEL (74138)(TOTAL 2020-09-29 Shaina Pinto [facility] sity of CHOLESTEROL, TRIGLYCERIDES, HDL) 03:54:00 [facility] CBC WITH DIFF 2020-09-29 Rene Evans [facility] of 03:54:00 [facility] GLYCOSYLATED HEMOGLOBIN (A1C) 2020-09-29 Shaina Pinto iversity of 03:54:00 [facility] N-TERMINAL PRO-BNP 2020-09-29 Shaina Pinto of 03:54:00 [facility] CONSENT/REFUSAL FOR DIAGNOSIS AND 2020-09-29 Doctor Ceciliasscherise olmedo, [facility] 03:18:51 [place] [facility] NOTICE OF PRIVACY PRACTICES 2020-09-29 Doctor Unassigned, U niversity of 03:18:30 [place] [facility] CT ABDOMEN PELVIS W CONTRAST 2019-08-11 Corby Ca versity of 14:50:46 [facility] COMP. METABOLIC PANEL ([id number]) 2019-08-11 Shaina Pinto Un iversity of 08:00:00 [facility] CBC WITH DIFFERENTIAL 2019-08-11 Shaina Pinto of 08:00:00 [facility] CBC WITH DIFFERENTIAL 2019-08-11 Shaina Pinto of 08:00:00 [facility] XR SMALL BOWEL SERIES 2019-08-10 Valente Piña of 21:18:47 [facility] XR ABDOMEN 1 VW 2019-08-10 Shaina Pinto of 11:52:39 [facility] PHOSPHORUS 2019-08-10 Shaina Pinto of 11:11:00 [facility] CREATINE KINASE 2019-08-10 Shaina Pinto of 11:11:00 [facility] AMYLASE 2019-08-10 Shaina Pinto of 11:11:00 [facility] LIPASE 2019-08-10 Shaina Pinto of 11:11:00 [facility] MAGNESIUM 2019-08-10 Shaina Pinto of 11:11:00 [facility] TEST, SERUM 2019-08-10 Shaina Pinto of 11:11:00 [facility] THYROID STIMULATING HORMONE 2019-08-10 Shaina Pinto Univ ersity of 11:11:00 [facility] COMP. METABOLIC PANEL ([id number]) 2019-08-10 Shaina Pinto iversity of 11:11:00 [facility] LIPID PANEL (96180)(TOTAL 2019-08-10 Shaina Pinto Univ sity of CHOLESTEROL, TRIGLYCERIDES, HDL) 11:11:00 [facility] SEDIMENTATION RATE 2019-08-10 Shaina Pinto [facility] of 11:11:00 [facility] CBC WITH DIFFERENTIAL 2019-08-10 Shaina Pinto [facility] of 11:11:00 [facility] GLYCOSYLATED HEMOGLOBIN (A1C) 2019-08-10 Shaina Pinto Un iversity of 11:11:00 [facility] PROTHROMBIN TIME / INR 2019-08-10 Shiana Pinto Universit y of 11:11:00 [facility] CORONAVIRUS COVID-19 TESTING 2019-08-10 Shaina Pinto Uni versity of 09:04:00 [facility] Plan of Care Planned Activity Planned Date Details Comments Source Future Scheduled 2022-07-18 Screening for [facility] Test 04:05:29 malignant neoplasm of cervix (procedure) [code = [id number]] Future Scheduled 2022-07-18 BREAST CANCER [facility] Test 04:05:29 SCREENING [code = BREAST CANCER SCREENING] Future Scheduled 2022-07-18 COLONOSCOPY SCREENING [facility] Test 04:05:29 [code = COLONOSCOPY SCREENING] Future Scheduled 2022-07-18 SHINGLES VACCINES (1 [facility] Test 04:05:29 of 2) [code = SHINGLES VACCINES (1 of 2)] Future Scheduled 2022-07-18 COVID-19 VACCINE (3 - [facility] Test 04:05:29 Booster for Moderna series) [code = COVID-19 VACCINE (3 - Booster for Moderna series)] Future Scheduled 2022-07-18 HEPATITIS B VACCINES Met [facility] Test 04:05:29 (1 of 3 - Risk 3-dose series) [code = HEPATITIS B VACCINES (1 of 3 - Risk 3-dose series)] Future Scheduled 2022-07-18 Pneumococcal Vaccine: [facility] Test 04:05:29 Pediatrics (0 to 5 Years) and At-Risk Patients (6 to 64 Years) (2 - PCV) [code = Pneumococcal Vaccine: Pediatrics (0 to 5 Years) and At-Risk Patients (6 to 64 Years) (2 - PCV)] Future Scheduled 2022-07-18 INFLUENZA VACCINE [facility] Test 04:05:29 [code = INFLUENZA VACCINE] Future Scheduled 2022-04-30 Hepatitis C screening [facility] Test 10:39:21 (procedure) [code = [id number]] Future Scheduled 2022-04-30 Screening for [facility] Test 10:39:21 malignant neoplasm of cervix (procedure) [code = 467013420] Future Scheduled 2022-04-30 BREAST CANCER [facility] Test 10:39:21 SCREENING [code = BREAST CANCER SCREENING] Future Scheduled 2022-04-30 COLONOSCOPY SCREENING [facility] Test 10:39:21 [code = COLONOSCOPY SCREENING] Future Scheduled 2022-04-30 SHINGLES VACCINES (1 [facility] Test 10:39:21 of 2) [code = SHINGLES VACCINES (1 of 2)] Future Scheduled 2022-04-30 COVID-19 VACCINE (3 - [facility] Test 10:39:21 Booster for Moderna series) [code = COVID-19 VACCINE (3 - Booster for Moderna series)] Future Scheduled 2022-04-30 HEPATITIS B VACCINES [facility] Test 10:39:21 (1 of 3 - Risk 3-dose series) [code = HEPATITIS B VACCINES (1 of 3 - Risk 3-dose series)] Future Scheduled 2022-04-30 Pneumococcal Vaccine: [facility] Test 10:39:21 Pediatrics (0 to 5 Years) and At-Risk Patients (6 to 64 Years) (2 - PCV) [code = Pneumococcal Vaccine: Pediatrics (0 to 5 Years) and At-Risk Patients (6 to 64 Years) (2 - PCV)] Future Scheduled 2022-04-03 Hepatitis C screening [facility] Test 09:24:01 (procedure) [code = [id number]] Future Scheduled 2022-04-03 Screening for [facility] Test 09:24:01 malignant neoplasm of cervix (procedure) [code = [id number]] Future Scheduled 2022-04-03 BREAST CANCER [facility] Test 09:24:01 SCREENING [code = BREAST CANCER SCREENING] Future Scheduled 2022-04-03 COLONOSCOPY SCREENING [facility] Test 09:24:01 [code = COLONOSCOPY SCREENING] Future Scheduled 2022-04-03 SHINGLES VACCINES (1 Met [facility] Test 09:24:01 of 2) [code = SHINGLES VACCINES (1 of 2)] Future Scheduled 2022-04-03 COVID-19 VACCINE (3 - [facility] Test 09:24:01 Booster for Moderna series) [code = COVID-19 VACCINE (3 - Booster for Moderna series)] Future Scheduled 2022-04-03 HEPATITIS B VACCINES [facility] Test 09:24:01 (1 of 3 - Risk 3-dose series) [code = HEPATITIS B VACCINES (1 of 3 - Risk 3-dose series)] Future Scheduled 2022-04-03 Pneumococcal Vaccine: [facility] Test 09:24:01 Pediatrics (0 to 5 Years) and At-Risk Patients (6 to 64 Years) (2 - PCV) [code = Pneumococcal Vaccine: Pediatrics (0 to 5 Years) and At-Risk Patients (6 to 64 Years) (2 - PCV)] Future Scheduled 2022-03-25 Hepatitis C screening [facility] Test 03:54:02 (procedure) [code = [id number]] Future Scheduled 2022-03-25 BREAST CANCER [facility] Test 03:54:02 SCREENING [code = BREAST CANCER SCREENING] Future Scheduled 2022-03-25 COLONOSCOPY SCREENING [facility] Test 03:54:02 [code = COLONOSCOPY SCREENING] Future Scheduled 2022-03-25 SHINGLES VACCINES (1 [facility] Test 03:54:02 of 2) [code = SHINGLES VACCINES (1 of 2)] Future Scheduled 2022-03-25 COVID-19 VACCINE (3 - [facility] Test 03:54:02 Booster for Moderna series) [code = COVID-19 VACCINE (3 - Booster for Moderna series)] Future Scheduled 2022-03-25 HEPATITIS B VACCINES [facility] Test 03:54:02 (1 of 3 - Risk 3-dose series) [code = HEPATITIS B VACCINES (1 of 3 - Risk 3-dose series)] Future Scheduled 2022-03-25 Pneumococcal Vaccine: [facility] Test 03:54:02 Pediatrics (0 to 5 Years) and At-Risk Patients (6 to 64 Years) (2 - PCV) [code = Pneumococcal Vaccine: Pediatrics (0 to 5 Years) and At-Risk Patients (6 to 64 Years) (2 - PCV)] Future Scheduled 2022-03-15 Hepatitis C screening [facility] Test 14:24:37 (procedure) [code = [id number]] Future Scheduled 2022-03-15 Screening for [facility] Test 14:24:37 malignant neoplasm of cervix (procedure) [code = 706140208] Future Scheduled 2022-03-15 BREAST CANCER [facility] Test 14:24:37 SCREENING [code = BREAST CANCER SCREENING] Future Scheduled 2022-03-15 COLONOSCOPY SCREENING [facility] Test 14:24:37 [code = COLONOSCOPY SCREENING] Future Scheduled 2022-03-15 SHINGLES VACCINES (1 [facility] Test 14:24:37 of 2) [code = SHINGLES VACCINES (1 of 2)] Future Scheduled 2022-03-15 COVID-19 VACCINE (3 - [facility] Test 14:24:37 Booster for Moderna series) [code = COVID-19 VACCINE (3 - Booster for Moderna series)] Future Scheduled 2022-03-15 HEPATITIS B VACCINES [facility] Test 14:24:37 (1 of 3 - Risk 3-dose series) [code = HEPATITIS B VACCINES (1 of 3 - Risk 3-dose series)] Future Scheduled 2022-03-15 Pneumococcal Vaccine: [facility] Test 14:24:37 Pediatrics (0 to 5 Years) and At-Risk Patients (6 to 64 Years) (2 - PCV) [code = Pneumococcal Vaccine: Pediatrics (0 to 5 Years) and At-Risk Patients (6 to 64 Years) (2 - PCV)] Future Scheduled 2022-01-15 Pneumococcal Vaccine: [facility] Test 07:35:31 Pediatrics (0 to 5 Years) and At-Risk Patients (6 to 64 Years) (1 - PCV) [code = Pneumococcal Vaccine: Pediatrics (0 to 5 Years) and At-Risk Patients (6 to 64 Years) (1 - PCV)] Future Scheduled 2022-01-15 Hepatitis C screening [facility] Test 07:35:31 (procedure) [code = 216402846] Future Scheduled 2022-01-15 Screening for [facility] Test 07:35:31 malignant neoplasm of cervix (procedure) [code = 871715132] Future Scheduled 2022-01-15 BREAST CANCER [facility] Test 07:35:31 SCREENING [code = BREAST CANCER SCREENING] Future Scheduled 2022-01-15 COLONOSCOPY SCREENING [facility] Test 07:35:31 [code = COLONOSCOPY SCREENING] Future Scheduled 2022-01-15 SHINGLES VACCINES (1 [facility] Test 07:35:31 of 2) [code = SHINGLES VACCINES (1 of 2)] Future Scheduled 2022-01-15 COVID-19 VACCINE (3 - [facility] Test 07:35:31 Booster for Moderna series) [code = COVID-19 VACCINE (3 - Booster for Moderna series)] Future Scheduled 2022-01-15 HEPATITIS B VACCINES [facility] Test 07:35:31 (1 of 3 - Risk 3-dose series) [code = HEPATITIS B VACCINES (1 of 3 - Risk 3-dose series)] Future Scheduled 2022-01-13 Pneumococcal Vaccine: [facility] Test 14:41:05 Pediatrics (0 to 5 Years) and At-Risk Patients (6 to 64 Years) (1 - PCV) [code = Pneumococcal Vaccine: Pediatrics (0 to 5 Years) and At-Risk Patients (6 to 64 Years) (1 - PCV)] Future Scheduled 2022-01-13 Hepatitis C screening [facility] Test 14:41:05 (procedure) [code = 983605059] Future Scheduled 2022-01-13 Screening for [facility] Test 14:41:05 malignant neoplasm of cervix (procedure) [code = 285448224] Future Scheduled 2022-01-13 BREAST CANCER [facility] Test 14:41:05 SCREENING [code = BREAST CANCER SCREENING] Future Scheduled 2022-01-13 COLONOSCOPY SCREENING [facility] Test 14:41:05 [code = COLONOSCOPY SCREENING] Future Scheduled 2022-01-13 SHINGLES VACCINES (1 Met [facility] Test 14:41:05 of 2) [code = SHINGLES VACCINES (1 of 2)] Future Scheduled 2022-01-13 COVID-19 VACCINE (3 - [facility] Test 14:41:05 Booster for Moderna series) [code = COVID-19 VACCINE (3 - Booster for Moderna series)] Future Scheduled 2022-01-13 HEPATITIS B VACCINES [facility] Test 14:41:05 (1 of 3 - Risk 3-dose series) [code = HEPATITIS B VACCINES (1 of 3 - Risk 3-dose series)] Future Scheduled 2021-12-24 Pneumococcal Vaccine: [facility] Test 07:34:42 Pediatrics (0 to 5 Years) and At-Risk Patients (6 to 64 Years) (1 - PCV) [code = Pneumococcal Vaccine: Pediatrics (0 to 5 Years) and At-Risk Patients (6 to 64 Years) (1 - PCV)] Future Scheduled 2021-12-24 Hepatitis C screening [facility] Test 07:34:42 (procedure) [code = 699577878] Future Scheduled 2021-12-24 Screening for [facility] Test 07:34:42 malignant neoplasm of cervix (procedure) [code = 082614011] Future Scheduled 2021-12-24 BREAST CANCER [facility] Test 07:34:42 SCREENING [code = BREAST CANCER SCREENING] Future Scheduled 2021-12-24 COLONOSCOPY SCREENING [facility] Test 07:34:42 [code = COLONOSCOPY SCREENING] Future Scheduled 2021-12-24 SHINGLES VACCINES (1 [facility] Test 07:34:42 of 2) [code = SHINGLES VACCINES (1 of 2)] Future Scheduled 2021-12-24 COVID-19 VACCINE (3 - [facility] Test 07:34:42 Booster for Moderna series) [code = COVID-19 VACCINE (3 - Booster for Moderna series)] Future Scheduled 2021-12-24 HEPATITIS B VACCINES [facility] Test 07:34:42 (1 of 3 - Risk 3-dose series) [code = HEPATITIS B VACCINES (1 of 3 - Risk 3-dose series)] Future Scheduled 2021-12-09 Pneumococcal Vaccine: [facility] Test 13:56:39 Pediatrics (0 to 5 Years) and At-Risk Patients (6 to 64 Years) (1 - PCV) [code = Pneumococcal Vaccine: Pediatrics (0 to 5 Years) and At-Risk Patients (6 to 64 Years) (1 - PCV)] Future Scheduled 2021-12-09 Hepatitis C screening [facility] Test 13:56:39 (procedure) [code = 401228208] Future Scheduled 2021-12-09 Screening for [facility] Test 13:56:39 malignant neoplasm of cervix (procedure) [code = 589093889] Future Scheduled 2021-12-09 BREAST CANCER [facility] Test 13:56:39 SCREENING [code = BREAST CANCER SCREENING] Future Scheduled 2021-12-09 COLONOSCOPY SCREENING [facility] Test 13:56:39 [code = COLONOSCOPY SCREENING] Future Scheduled 2021-12-09 SHINGLES VACCINES (1 [facility] Test 13:56:39 of 2) [code = SHINGLES VACCINES (1 of 2)] Future Scheduled 2021-12-09 COVID-19 VACCINE (3 - [facility] Test 13:56:39 Booster for Moderna series) [code = COVID-19 VACCINE (3 - Booster for Moderna series)] Future Scheduled 2021-12-09 HEPATITIS B VACCINES [facility] Test 13:56:39 (1 of 3 - Risk 3-dose series) [code = HEPATITIS B VACCINES (1 of 3 - Risk 3-dose series)] Future Scheduled 2021-12-09 INFLUENZA VACCINE Method [facility] Test 13:56:39 [code = INFLUENZA VACCINE] Encounters Start End Encounter Admission Attending Care Care Encounter Source Date/Time Date/Time Type Type Clinicians Facility Department ID 2022-08-23 [facility] [id number] Common 11:19:00 Annalise [address] [facility] 2022-06-09 Outpatient [place], STLMLC STLC [id number] Common 10:28:[address] [facility] 2022-05-12 Outpatient [place], STLMLC STLC [id number] Common 09:47:[address] [facility] 2022 Outpatient [place], STLMLC STLMLC [id number] Common 07:49:[address] [facility] 2022-03-25 Outpatient [place], STLMLC STLMLC [id number] Common 12:49:[address] [facility] 2022-03-24 Outpatient [place], STLMLC STLMLC [id number] Common 11:16:[address] [facility] 2022-03-23 Outpatient Kattegummul STLC [facility] [id number] - Common 15:33:00 a, Madhu [facility] 2021-10-13 [facility] [id number] - Common 14:25:01 a, Madhu [facility] 2021-05-06 Outpatient Kattegummul STLMLC STLMLC [id number] -202 Common 14:30:56 a, Madhu [facility] 2021-05-06 Outpatient Kattegummul STLMLC STLMLC [id number] -202 Common 14:26:04 a, Madhu 04469 [facility] 2021-05-06 Outpatient Kattegummul STLMLC STLMLC [id number] Common 14:05:28 a, Madhu 96385 [facility] 2021-05-06 Outpatient Kattegummul STLMLC STLMLC [id number] -202 Common 13:37:29 a, Madhu 97390 [facility] 2021-05-06 Outpatient [place], STLMLC STLMLC Common 13:36:[address] [facility] 2021-05-06 Outpatient [place], STLMLC STLMLC [id number] Common 11:25:[address] [facility] 2021-02-09 Emergency [facility] [id number] Univers 02:25:27 ity of [facility] 2022-08-11 2022-08-11 [facility] Radiology [facility] 1.2.840.114 102 [id number] Univers 10:36:25 23:59:00 Encounter [place] 350.1.13.10 ity of [place] 4.2.7.2.686 [facility] [id number] [address] 2022-08-11 2022-08-11 Outpatient R RADIOLOGY [facility] [id number] 60624 Univers 10:15:12 10:35:00 ity [facility] 2022-08-11 2022-08-11 Hospital Radiology [facility] 1.2.840.114 102 [id number] Univers 10:15:12 10:35:00 Encounter [place] 350.1.13.10 ity of [place] 4.2.7.2.686 [facility] [id number] [address] 2022-08-11 2022-08-11 Jewel Supervisor Roberta, Elsy Lab Main [facility] 1.2.8 40.114 [id number] [facility] 10:00:00 10:15:00 Visit Handy Rhoades PERI 350.1.13.10 [facility] 4.2.7.2.686 [facility] [id number] Pr dical [address] 2022-08-07 2022-08-07 Emergency X CHARLES, K [facility] ERT [id number] Univers 00:50:00 02:49:00 ity [facility] 2022-08-07 2022-08-07 Emergency Sukhdev Stoo [facility] 1.2.840.114 10 [id number] Univers 00:50:00 02:49:00 Mary WHITT 350.1.13.10 i ty [facility] 4.2.7.2.686 [facility] [id number] [place] 795314 [place] 2022-07-28 2022-08-03 Inpatient NAKIA CRUZ [facility] 42563 [address]886 [place] 00:00:00 00:00:[address] 2022-07-12 2022-07-12 Telephone Amita, 1.2.840.1 [id number] 011 [id number] Methodi 00:00:00 00:00:[address] 3.430.2.7 Hospit a .3.933145 l .8 2022-07-04 2022-07-09 [facility] 682 [id number] 892 [place] 00:00:00 00:00:00 Encounter BEBETO [address] 2022-06-23 2022-06-30 [facility] 803 [id number] 159 [place] 00:00:00 00:00:00 Encounter BEBETO [address] 2022-06-29 2022-06-29 Surgery Sen, 1.2.840.1 [id number] 6962 Methodi 09:00:00 10:25:[address] 3.430.2.7 Hospit a .3.803010 l .8 2022-06-28 2022-06-28 Hospital SEN, 1.2.840.1 [id number] 83192 39960 [place] 00:00:00 00:00:00 Encounter ADAMA 70106.1.1 [address] 3.430.2.7 st .3.115381 .8 2022-06-23 2022-06-23 Travel 1.2.840.1 1.2.533.360 0045 253453 Methodi 00:00:00 00:00:[address] 3.430.2.7 0.2.7.3.698 Ho spita .3.006481 084.8 l .8 2022-06-14 2022-06-22 Office Jose Raul Nicole Nic 1.2.840.1 104 841010 [id number] Methodi 10:30:00 19:10:55 Visit Krystyna Mustafa 65075.1.[address] 3.430.2.7 Hospit a .3.092787 l .8 2022-06-22 2022-06-22 Documentat Estephania, 1.2.840.1 [id number] 844 [id number] Methodi 00:00:00 00:00:00 ion Bala 35998.1.[address] Louie 3.430.2.7 Hospit a .3.733197 l .8 2022-06-21 2022-06-21 [facility], 1.2.840.1 [id number] 171 [id number] [place] 00:00:00 00:00:00 Encounter JOSE RAUL 87997.1.1 [address] 3.[address].2.7 [address] .3.453138 .8 2022-06-21 2022-06-21 [facility], 1.2.840.1 [id number] 849 [id number] [place] 00:00:00 00:00:00 Encounter JOSE RAUL 10713.1.1 [address] .3.072446 .8 2022-06-21 2022-06-21 [facility] 1.2.840.1 [id number] 791 [id number] [place] 00:00:00 00:00:00 Encounter JOSE RAUL 20941.1.1 [address] .3.287528 .8 2022-06-21 2022-06-21 Travel 1.2.840.1 1.2.731.807 9548 847479 Methodi 00:00:00 00:00:[address] 3.430.2.7 0.2.7.3.698 Ho spita .3.239803 084.8 l .8 2022-06-14 2022-06-14 Social Corey, Jose Raul Nic 1.2.840.1 104 958680 [id number] Methodi 13:00:00 14:00:00 Work Aramis John 12794.1.[address] 3.430.2.7 Hospit a .3.074679 l .8 2022-06-14 2022-06-14 Nutrition Corey, 1.2.840.1 [id number] [id number] Methodi 10:00:00 11:00:00 Cassiramon Nic 45550.1.1 929 s t 3.430.2.7 Hospit a .3.824758 l .8 2022-06-14 2022-06-14 Office Corey Jose Raul Nic 1.2.840.1 104 444753 [id number] Methodi 10:15:00 10:30:00 Visit Adama Duarte 59697.1.[address] 3.430.2.7 Hospit a .3.442456 l .8 2022-06-14 2022-06-14 Clinical Corey Jose Raul Nic 1.2.840.1 10 0860944 [id number] Methodi 09:00:00 10:30:00 Support Laura Aguilera 95897.1.1 931 s t 3.430.2.7 Hospit a .3.708026 l .8 2022-06-14 2022-06-14 Lab Corey 1.2.840.1 [id number] 2099 943589 Methodi 07:00:00 07:10:00 Rafik Nic 56240.1.1 926 s t 3.430.2.7 Hospit a .3.333972 l .8 2022-06-14 2022-06-14 [facility], 1.2.840.1 [id number] 369 [id number] [place] 00:00:00 00:00:00 Encounter CASSIIK 91263.1.1 [address] .3.091114 .8 2022-06-14 2022-06-14 [facility], 1.2.840.1 [id number] 252 [id number] [place] 00:00:00 00:00:00 Encounter RAFIK 07583.1.1 [address].7 [address] .3.462754 .8 2022-06-14 2022-06-14 [facility], 1.2.840.1 [id number] 427 [id number] [place] 00:00:00 00:00:00 Encounter RAFIK 59769.1.1 [address].2.[address] .3.042670 .8 2022-06-14 2022-06-14 [facility], 1.2.840.1 [id number] 011 [id number] [place] 00:00:00 00:00:00 Encounter RAFIK 95409.1.1 [address] .3.628463 .8 2022-06-14 2022-06-14 Travel 1.2.840.1 1.2.501.238 8330 024594 Methodi 00:00:00 00:00:[address] 3.430.2.7 0.2.7.3.698 Ho spita .3.290121 084.8 l .8 2022-06-13 2022-06-13 Travel 1.2.840.1 1.2.981.851 1665 250914 Methodi 00:00:00 00:00:[address] 3.430.2.7 0.2.7.3.698 Ho spita .3.077261 084.8 l .8 2022-06-08 2022-06-08 Orders Estephania, 1.2.840.1 [id number] 132462 2949 Methodi 00:00:00 00:00:00 Only Bala 94022.1.[address] Louie 3.430.2.7 Hospit a .3.227488 l .8 2022-05-24 2022-05-30 [facility] 341 [id number] 868 [place] 00:00:00 00:00:00 Encounter BEBETO [address] 2022-05-28 2022-05-28 Surgery Verónica, 1.2.840.1 [id number] 336815 9241 Methodi 16:15:00 17:30:00 Carolin Diaz 34853.1.[address] 3.430.2.7 Hospit a .3.595195 l .8 2022-05-28 2022-05-28 Anesthesia Fer Delarosa 1.2.840 .1 [id number] Methodi 16:06:00 16:35:00 Event Cecilia Martino 59224.1.[address] 3.430.2.7 Hospit a .3.559200 l .8 2022-05-25 2022-05-25 Telephone Pops, 1.2.840.1 [id number] 2099 958225 Methodi 00:00:00 00:00:[address] 3.430.2.7 Hospit a .3.590361 l .8 2022-05-24 2022-05-24 Travel 1.2.840.1 1.2.692.644 0433 725889 Methodi 00:00:00 00:00:[address] 3.430.2.7 0.2.7.3.698 Ho spita .3.641856 084.8 l .8 2022-05-06 2022-05-20 Hospital Oneil Rodriguez 1.2.840.1 0800270 2099 [id number] Methodi 12:53:00 15:57:00 Encounter Anand Arora 69113.1.[address] Jeremy Sandoval 3.430.2.7 Hospita .3.179371 l .8 2022-05-19 2022-05-19 Anesthesia Jeovany Sanches 1.2.840.1 19187 1042 [id number] Methodi 16:20:00 16:54:00 Event Estefania Hameed 26899.1.[address] 3.430.2.7 Hospit a .3.510874 l .8 2022-05-19 2022-05-19 Surgery Thomas, 1.2.840.1 [id number] 93388 65756 Methodi 15:30:00 16:30:[address] 3.430.2.7 Hospit a .3.945165 l .8 2022-05-06 2022-05-06 Travel 1.2.840.1 1.2.215.148 1741 691395 Methodi 00:00:00 00:00:[address] 3.430.2.7 0.2.7.3.698 Ho spita .3.336684 084.8 l .8 2022-04-15 2022-04-15 Emergency X ALEENA [facility] ERT [id number] 57 Univers 20:21:00 22:43:00 ESTEPHANIA tammi [facility] 2022-04-15 2022-04-15 Emergency Aleena [facility] 1.2.333.066 1778 9933 Univers 20:21:00 22:43:00 Estephania WHITT 350.1.13.10 i ty of [place] 4.2.7.2.686 [facility] [phone] [place] [address] [address] 2022-04-09 2022-04-09 Emergency [facility] ERT [id number] Univers 19:38:00 22:06:00 EMILY tammi [facility] 2022-04-09 2022-04-09 Emergency Damian [facility] 1.2.971.642 7910 3215 Univers 19:38:00 22:06:00 Emily Pb WHITT 350.1.13.10 ity [facility] 4.2.7.2.686 [facility] [id number] [place] [address] Branch 2022-03-17 2022-03-17 Documentat Ijir, 1.2.840.1 [id number] Methodi 00:00:00 00:00:[address] 3.430.2.7 Hospit a .3.626594 l .8 2022-02-25 2022-02-27 Emergency RehrerStevo 1.2.840.1 10 1464835 [id number] Methodi 12:36:00 18:45:00 [address]Jerem[address] potts 39619.1.[address] 3.430.2.7 Hospit a .3.302593 l .8 2022-02-25 2022-02-25 Travel 1.2.840.1 1.2.482.410 0999 889251 Methodi 00:00:00 00:00:[address] 3.430.2.7 0.2.7.3.698 Ho spita .3.706362 084.8 l .8 2022-02-15 2022-02-15 Emergency X [facility] ERT [id number] 86 Univers 13:44:00 16:34:00 FLORIAN aburto [facility] 2022-02-15 2022-02-15 Emergency [facility] 1.2.525.362 0087 7602 Univers 13:44:00 16:34:00 Florian WHITT 350.1.13.10 i ty [facility] 4.2.7.2.686 [facility] [id number] [place] [address] Branch 2022-01-31 2022-02-04 [facility] Rolando Olivier 1.2.840.1 11067 1027 [id number] Methodi 18:11:00 16:36:00 Bebeto Barriga 73129.1.[address] NancyNakia 3.430.2.7 Hos alvaro .3.981930 l .8 2022-02-03 2022-02-03 Anesthesia Aziza Cordero 1.2.840.1 596011645 [id number] Methodi 14:37:00 15:02:00 Event Bebeto Heck 59796.1.[address] 3.430.2.7 Hospit a .3.325974 l .8 2022-02-03 2022-02-03 Surgery Verónica, 1.2.840.1 [id number] 138434 1610 Methodi 14:30:00 15:00:00 Carolin Diaz 48801.1.[address] 3.430.2.7 Hospit a .3.415230 l .8 2022-02-02 2022-02-02 Prep for Verónica, 1.2.840.1 [id number] 33473 93720 Methodi 00:00:00 00:00:00 Surgery Carolin Diaz 31356.1.[address] 3.430.2.7 Hospit a .3.752511 l .8 2022-01-01 2022-01-06 [facility] 1.2.840 .1 [id number] [id number] Methodi 23:18:00 19:11:00 Encounter Nakia Cruz 15595.1.[address] [facility] StreetJoseh Deo 3.430.2.7 Hospita .3.634120 l .8 2022-01-05 2022-01-05 Surgery Thomas, 1.2.840.1 074828071 00524 85710 Methodi 16:00:00 16:30:[address] 3.430.2.7 Hospit a .3.326259 l .8 2022-01-05 2022-01-05 Anesthesia Handy Dietrich 1.2.840 .1 [id number] Methodi 15:55:00 16:18:00 Event Bebeto Heck 36893.1.[address] 3.430.2.7 Hospit a .3.017891 l .8 2022-01-02 2022-01-02 Travel 1.2.840.1 1.2.347.573 7975 427684 Methodi 00:00:00 00:00:[address] 3.430.2.7 0.2.7.3.698 Ho marielata .3.000556 084.8 l .8 2021-12-11 2021-12-18 Hospital Stevo Hoskins 1.2.840.1 104 614300 [id number] Methodi 16:59:00 17:46:00 Encounter Jeremy Sandoval Deo 54203.1.[address] Bebeto Ward 3.430.2.7 Hospita .3.789820 l .8 2021-11-26 2021-12-03 Hospital [facility] 1.2.840.1 79964 1027 [id number] Methodi 16:08:00 14:06:00 Encounter Jose Sandovalgenevieve Desouza 25486.1.[address] Willian Singleton 3.430.2.7 Hospita Nakia Cruz .3.299206 l .8 2021-11-30 2021-11-30 Anesthesia Mahnaz Trujillo 1.2.840.1 1 42018018 [id number] Methodi 14:50:00 15:11:00 Event Feng Burgos 38509.1.[address] 3.430.2.7 Hospit a .3.574760 l .8 2021-11-30 2021-11-30 Surgery Thomas, 1.2.840.1 [id number] 21429 44939 Methodi 14:30:00 15:00:[address] 3.430.2.7 Hospit a .3.528117 l .8 2021-10-21 2021-10-26 Hospital Sharita Suresh 1.2.840.1 [id number] [id number] Methodi 09:04:00 14:43:00 Encounter Nakia Cruz 40158.1.[address] Anand Arora 3.430.2.7 Hospita .3.869540 l .8 2021-10-23 2021-10-23 Surgery Thomas, 1.2.840.1 [id number] 18463 63788 Methodi 12:30:00 13:30:[address] 3.430.2.7 Hospit a .3.495241 l .8 2021-10-23 2021-10-23 Anesthesia Aziza Cordero 1.2.840.1 486792085 [id number] Methodi 12:25:00 12:53:[address] 3.430.2.7 Hospit a .3.035838 l .8 2021-10-21 2021-10-21 Travel 1.2.840.1 1.2.230.736 1881 675378 Methodi 00:00:00 00:00:[address] 3.430.2.7 0.2.7.3.698 Ho spita .3.462609 084.8 l .8 2021-09-28 2021-09-29 Emergency X CHARLES, K [facility] ERT [id number] 2817 Univers 22:03:00 00:15:00 ity of [facility] 2021-09-28 2021-09-29 Emergency Charles, Sukhdev [facility] 1.2.840.114 94 158039 Univers 22:03:00 00:15:00 Mary WHITT 350.1.13.10 i ty of [place] 4.2.7.2.686 [facility] 451.8318711 [facility] 084 Branch 2021-09-28 2021-09-28 Orders Doctor VERONIQUE 1.2.840.114 [id number] 31 Univers 00:00:00 00:00:00 Only Unassigned, GONZALO 350.1.13.10 ity of [place] [facility] 4.2.7.2.686 [facility] [id number] [facility] 009 Branch 2021-04-07 2021-04-07 Letter Orthopedic [facility] 1.2.840.114 900 30134 Univers 00:00:00 00:00:00 (Out) Clinic SPECIALTY 350.1.13.10 ity of [facility] 4.2.7.2.686 [facility] [phone] Pr pritesh PTAINO 198 [facility] 2021-04-02 2021-04-02 Emergency [facility] 1.2.840.114 89 [id number] Univers 12:58:00 15:25:00 Kinsey WHITT 350.1.13.10 ity of [place] 4.2.7.2.686 [facility] 850.4819178 [facility] [address] [place] 2021-04-02 2021-04-02 Emergency X [facility] ERT 110934 0175 Univers 12:58:00 15:25:00 FOLUSHO ity of [facility] 2021-03-11 2021-03-11 Telephone VERONIQUE Cruz 1.2.878.962 8051 9674 Univers 00:00:00 00:00:00 Frances SÁNCHEZ 350.1.13.10 it y of HOSPITAL 4.2.7.2.686 Quang as 161.6500335 [facility] 0[address] [place] 2021-03-10 2021-03-10 Outpatient R NETTIE [facility] [id number] 037 Univers 14:45:00 14:51:40 LEXIE ity of [facility] 2021-03-10 2021-03-10 Laboratory Only, Ang Db Test [facility] 1.2.8 40.114 [id number] Univers 14:29:53 14:44:53 Only Unknown, Attending HEALTH 350.1.13.10 ity of [place] 4.2.7.2.686 Quang as MARINA?BLEA 396.9240206 Pr pritesh STINSON [address] [place] MEDICAL OFFICE BUILDING 2021-03-10 2021-03-10 Orders Doctor VERONIQUE 1.2.840.114 [id number] 69 Univers 00:00:00 00:00:00 Only Unassigned, GONZALO 350.1.13.10 ity of [place] [facility] 4.2.7.2.686 Quang as [id number] [facility] [address] [place] 2021-02-18 2021-02-20 [facility] Sharita Suresh 1.2.840.1 [id number] Methodi 15:45:00 14:08:00 Encounter Jeremy Sandoval 40455.1.[address] 3.430.2.7 Hospit a .3.659733 l .8 2021-02-03 2021-02-04 Emergency X [facility] ERT [id number] 03 Univers 21:10:00 03:21:00 GARTH ity of [facility] 2020-10-21 2020-10-27 [facility] 130643 7148 [place] 00:00:00 00:00:00 BEBETO 980 Method i 2020-10-06 2020-10-06 Transition Claudia Jocelyne 1.2.840.114 853 80177 Univers 00:00:00 00:00:00 of Care Madiha Sotelo 350.1.13.10 i ty of [place].2.[place] 129.6339068 [facility] 403 [address] 2020-09-28 2020-10-03 [facility] 1.2.840. 114 [id number] Univers 22:23:00 13:05:00 Encounter Shaina Pinto 350.1.13.10 ity of [place].2.[place] [id number] [facility] 081 [address] 2020-09-28 2020-09-28 Orders Doctor VERONIQUE 1.2.840.114 [id number] 04 Univers 00:00:00 00:00:00 Only Unassigned, GONZALO 350.1.13.10 ity of [place] [facility] 4.2.7.2.686 Quang as 123.1469128 [facility] 009 [address] 2020-09-09 2020-09-12 Inpatient NAKIA CRUZ [facility] 064 03124 96356 [place] 00:00:00 00:00:[address] 2020-08-08 2020-08-08 Outpatient [facility] 04663 06920 Univers 15:40:00 15:40:00 TERRI ity of [facility] 2020-07-11 2020-07-11 Outpatient [facility] [id number] 344 Univers 15:40:00 15:40:00 ity of [facility] 2020-06-09 2020-06-22 Inpatient NAKIA CRUZ [facility] 064 12675 44777 [place] 00:00:00 00:00:00 836 Method i 2020-03-19 2020-03-23 Inpatient DINAKAR, [facility] 838 [id number] 848 [place] 00:00:00 00:00:00 JEREMY 742 Method i 2020-03-14 2020-03-18 Inpatient DINAKAR, [facility] 492 [id number] 585 [place] 00:00:00 00:00:00 JEREMY 157 Method i 2020-02-13 2020-02-13 Laboratory Lab, [facility] Fam Pob I [facility] 1.. 840.114 [id number] [facility] 10:22:10 10:42:10 Only Dulce [facility] 350.1.13.10 ity of [place] 4.2.7.2.686 Quang as Professio [id number] [address] Office Building [facility] 2020-02-13 2020-02-13 Laboratory Lab, [facility] 1.2.840.114 79 [id number] 10:22:10 10:42:10 Only Fam Pob I Health 350.1.13.10 [place] 4.2.7.2.686 Professio [id number] [place] [address] Office Building [facility] 2019-09-28 2019-09-28 Outpatient [facility] 31 30262 Common 09:00:00 09:00:00 t Bone Bone [facility] Spiri t [facility] 2019-09-18 2019-09-18 Outpatient [facility] 30 06933 Common 09:30:00 09:30:00 t Bone Bone and Spiri t and [facility] 2019-08-14 2019-08-14 Transition Jocelyne Alexandra 1..840.114 754 75036 [facility] 00:00:00 00:00:00 of Care Jovanny Souza [place] 350.1.13.10 ity [id number] [address] 2019-08-14 2019-08-14 Transition Jocelyne Alexandra 1.2.840.114 754 61151 00:00:00 00:00:00 of Care Jovanny [place] 350.1.13.10 [place] 4.2.7.2.686 [id number] 403 2019-08-10 2019-08-11 [facility] [id number] 323 Univers 02:55:00 16:09:00 ADNAN ity [facility] 2019-08-10 2019-08-11 [facility] 1.2.392.375 7779 4528 Univers 02:55:00 16:09:00 Encounter Shaina Whitt 350.1.13.10 [facility] 4.2.7.2.686 [facility] [id number] [facility] [address] [place] 2019-08-10 2019-08-11 [facility] 1.2.845.842 9745 4528 02:55:00 16:09:00 Encounter Shaina Whitt 350.1.13.10 [place] 4.2.7.2.686 [place] [id number] 081 Results Test Description Test Time Test Comments Results Result Comments Source TROPONIN I 2022-08-07 07:11:37 Test Item Value Reference Range Interpretation Comme nts TROPONIN I (test code = 1583386431) 0.002 ng/mL <=0.034 SNOW (test code = SNOW) Reference (Normal) Range (defined by the 99th percentile reference [...] patient's use of biotin. Lab Interpretation (test code = Normal 16108-6) General acute hospital WITH [id number] 07:03:49 Test Item Value Reference Range Interpretation Comments WBC (test code = 2.64 See_Comment L [Automated 6690-2) message] The sy stem which generated this result transmitted reference range : 4.30 - 11.10 10*3/?L. The reference range was not used to interpret this result as normal/abnormal . RBC (test code = 3.33 See_Comment L [Automated 789-8) message] The sy stem which generated this result transmitted reference range : 3.93 - 5.25 10*6/?L. The reference range was not used to interpret this result as normal/abnormal . HGB (test code = 10.3 g/dL 11.6-15.0 L 718-7) HCT (test code = 31.5 % 35.7-45.2 L 4544-3) MCV (test code = 94.6 fL 80.6-95.5 787-2) MCH (test code = 30.9 pg 25.9-32.8 785-6) MCHC (test code = 32.7 g/dL 31.6-35.1 786-4) RDW-SD (test code = 60.6 fL 39.0-49.9 H 81322-2) RDW-CV (test code = 17.4 % 12.0-15.5 H 788-0) PLT (test code = 52 See_Comment L [Automated 777-3) message] The sy stem which generated this result transmitted reference range : 166 - 358 10*3/ ?L. The reference r davi was not used to interpret this result as normal/abnormal . MPV (test code = 11.8 fL 9.5-12.9 10942-0) IPF % (test code = 3.2 % 1.3-7.7 Platelet count [id number]) measured by fluorescence method. NRBC/100 WBC (test 0.0 See_Comment [Automat ed code = 8156666188) message] The system which generated this result transmitted reference range : 0.0 - 10.0 /100 WBCs. The refer ence range was not u sed to interpret th is result as normal/abnormal . NRBC x10^3 (test code See_Comment [Auto mated = 6988066459) message] The s ystem which generated this result transmitted reference range : 10*3/?L. The reference range was not used to interpret this result as normal/abnormal . GRAN MAT (NEUT) % 63.9 % (test code = 770-8) IMM GRAN % (test code 0.40 % = 3976814063) LYMPH % (test code = 20.5 % 736-9) MONO % (test code = 11.7 % 5905-5) EOS % (test code = 2.7 % 713-8) BASO % (test code = 0.8 % 706-2) GRAN MAT x10^3(ANC) 1.69 10*3/uL 1.88-7.09 L (test code = 8314063975) IMM GRAN x10^3 (test 0.00-0.06 code = 7379708235) LYMPH x10^3 (test code 0.54 10*3/uL 1.32-3.29 L = 731-0) MONO x10^3 (test code 0.31 10*3/uL 0.33-0.92 L = 742-7) EOS x10^3 (test code = 0.07 10*3/uL 0.03-0.39 711-2) BASO x10^3 (test code 0.01-0.07 = 704-7) PLT ESTIMATE (test Decreased Normal A code = 9317-9) Lab Interpretation Abnormal (test code = 03161-8) [facility]13[facility] 07:00:18 Test Item Value Reference Range Interpretation Comments NA (test code = 139 mmol/L 135-145 6023824216) K (test code = 3.0 mmol/L 3.5-5.0 L 5311961942) CL (test code = 105 mmol/L 98-108 1315415475) CO2 TOTAL (test code = 29 mmol/L 23-31 7678731312) AGAP (test code = 5 2-16 5468709463) BUN (test code = 10 mg/dL 7-23 1097635826) GLUCOSE (test code = 114 mg/dL 70-110 H 4727312574) CREATININE (test code = 0.56 mg/dL 0.50-1.04 1657946551) TOTAL BILI (test code = 2.6 mg/dL 0.1-1.1 H 4693042765) CALCIUM (test code = 7.9 mg/dL 8.6-10.6 L 4698613524) T PROTEIN (test code = 6.1 g/dL 6.3-8.2 L 0685098067) ALBUMIN (test code = 3.1 g/dL 3.5-5.0 L 8259850433) ALK PHOS (test code = 144 U/L 34-122 H 8414911102) ALTv (test code = 52 U/L 5-35 H 1742-6) AST(SGOT) (test code = 61 U/L 13-40 H 1163669294) eGFR (test code = 110.1 mL/min/1.73m2 3583981339) SNOW (test code = SNOW) Association of [...] tests). Lab Interpretation Abnormal (test code = 55166-3) [facility] Test Item Value Reference Range Interpretation Comments MAGNESIUM (test code = 0004283608) 1.8 mg/dL 1.7-2.4 Lab Interpretation (test code = Normal 06079-8) [facility]58 Test Item Value Reference Range Interpretation Comments LIPASE (test code = 9133828052) 178 U/L 0-220 Lab Interpretation (test code = Normal 51689-5) [facility] RNA [Presence] in Respiratory specimen by HELENA with probe [id number] 00:20:03 Test Item Value Reference Range Interpretation Comments SARS-CoV-2 (COVID-19) RNA Not detected [Presence] in Respiratory specimen by HELENA with probe detection (test code = 22273-8) 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 employed in a Unknown healthcare setting (test code = 42246-9) Whether the patient has symptoms Unknown related to condition of interest (test code = 06506-1) Whether the patient was Unknown hospitalized for condition of interest (test code = 76441-0) Whether the patient was admitted Unknown to intensive care unit (ICU) for condition of interest (test code = 72034-1) Whether patient resides in a Unknown congregate care setting (test code = 65104-0) status (test code = Unknown 53646-0) Date and time of symptom onset Unknown (test code = 44494-3) BROOKE CHOUSARS-CoV-2 (COVID-19) RNA [Presence] in Respiratory specimen by HELENA with probe [id number] 23:53:39 Test Item Value Reference Range Interpretation Comments SARS-CoV-2 (COVID-19) RNA Not detected [Presence] in Respiratory specimen by HELENA with probe detection (test code = 56662-5) 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 employed in a Unknown healthcare setting (test code = 59692-6) Whether the patient has symptoms Unknown related to condition of interest (test code = 92193-6) Whether the patient was Unknown hospitalized for condition of interest (test code = 70406-5) Whether the patient was admitted Unknown to intensive care unit (ICU) for condition of interest (test code = 88013-5) Whether patient resides in a Unknown congregate care setting (test code = 31112-5) status (test code = Unknown 35163-6) Date and time of symptom onset Unknown (test code = 48142-3) BROOKE Escobar rotbaqo1219-80-72 14:22:00 Test Item Value Reference Range Interpretation Comments Urine culture Mixed radha Specimen isolate (test <=10-3 col/cc InformationSp ecimen code = 00451-4) Source: Urin eSpecimen Site: Clean cat ch [facility] [id number] 02:43:00 Test Item Value Reference Range Interpretation Comments POC glucose (test code 200 mg/dL 65-99 H Opera tor Name: Stein = 14420-9) SnehalDevice ID : [id number] able: [facility] 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 Interpretation Abnormal (test code = 89382-1) [facility] CenterPrepare platelet pheresis, 1 Units, Leukoreduced, CMV Negative 2022-06-29 13:44:00 Test Item Value Reference Range Interpretation Comments Product name (test code Platelets Aph LR, Path = 25) Red cont1 Unit number (test code [id number] = [id number]) Product code (test code N4138W59 = 3092) Dispense status (test Transfused code = 24) Blood expiration date (test code = 302) Blood type code (test 5100 code = 308) Blood type (test code = O POSITIVE 1314) Compatibility (test Not required code = 6400) [facility] HospitalBcqbopkyMWLM-JrV-5 (COVID-19) RNA [Presence] in Respiratory specimen by HELENA with probe qnpcnyxls7161-33-18 01:49:50 Test Item Value Reference Range Interpretation Comments SARS-CoV-2 (COVID-19) RNA Not detected [Presence] in Respiratory specimen by HELENA with probe detection (test code = 10664-1) 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 employed in a Unknown healthcare setting (test code = 06635-1) Whether the patient has symptoms Unknown related to condition of interest (test code = 55192-8) Whether the patient was Unknown hospitalized for condition of interest (test code = 96315-8) Whether the patient was admitted Unknown to intensive care unit (ICU) for condition of interest (test code = 35140-0) Whether patient resides in a Unknown congregate care setting (test code = 65922-4) status (test code = Unknown 12370-5) Date and time of symptom onset Unknown (test code = 03741-5) [facility]OO[facility] CHRISTIAN WESTSpirometry, diffusion, lung xbulhrk9733-58-88 18:16:50 Test Item Value Reference Range Interpretation Comments VC Pre (test code = 2.9 L 5374) VC Predicted (test 3.16 code = 5372) VC LLN (test code = 2.48 5373) VC % Pre of Predicted 91.8 % (test code = 5375) TLC Pre (test code = 4.35 L 5416) TLC Predicted (test 4.78 code = 5414) TLC LLN (test code = 3.86 5415) TLC % Pre of Predicted 91 % (test code = 5417) RV Pre (test code = 1.44 L 5402) RV Predicted (test 1.64 code = 5400) RV LLN (test code = 1 5401) RV % Pre of Predicted 88 % (test code = 5403) RV % TLC Pre (test 33.2 % code = 5409) RV % TLC Predicted 34 (test code = 5407) RV % TLC LLN (test 23 code = 5408) RV % TLC % Pre of 98 % Predicted (test code = 5410) R0.5IN Pre (test code 2.76 cmH2O*s/L = 5514) R0.5IN Predicted (test 3.06 code = 5512) R0.5IN LLN (test code 3.06 = 5513) R0.5IN % Pre of 90.3 % Predicted (test code = 5515) FRCpl Pre (test code = 1.89 L 5388) FRCpl % Predicted 2.52 (test code = 5386) FRCpl % LLN (test code 1.79 = 5387) FRCpl % Pre of 74.8 % Predicted (test code = 5389) ERV Pre (test code = 0.44 L 5381) ERV Predicted (test 0.76 code = 5379) ERV LLN (test code = 0.26 5380) ERV % Pre of Predicted 58.5 % (test code = 5382) IC Pre (test code = 2.46 L 5395) IC Predicted (test 2.31 code = 5393) IC LLN (test code = 1.56 5394) IC % Pre of Predicted 106.5 % (test code = 5396) sR0.5IN Pre (test code 6.32 cmH2O*s = 5521) sR0.5IN LLN (test code 9.81 = 5520) sR0.5IN Predicted 9.81 (test code = 5519) sR0.5IN % Pre of 64.4 % Predicted (test code = 5522) Raw Pre (test code = 4.78 cmH2O*s/L 5507) Raw Predicted (test 3.06 code = 5505) Raw LLN (test code = 3.06 5506) Raw % Pre of Predicted 156.4 % (test code = 5508) sGaw Predicted (test 0.09 See_Comment [Autom ated message] code = 5528) The system [employer] generated this result transmitted ref erence range: 1/(cmH2O *s). The reference range was not used to interpr et this result as normal/abnormal . sGaw Predicted (test 0.1 code = 5526) sGaw LLN (test code = 0.1 5527) sGaw % Pre of 89.7 % Predicted (test code = 5529) FEV1 Pre (test code = 2.4 L 5348) FEV1 Predicted (test 2.32 code = 5302) FEV1 LLN (test code = 1.75 5347) FEV1 % Pre of 103.5 % Predicted (test code = 5308) FVC Pre (test code = 2.9 L 5354) FVC Predicted (test 2.94 code = 5307) FVC LLN (test code = 2.22 5353) FVC % Pre of Predicted 99 % (test code = 5355) FEV1/FVC % Pre (test 82.64 % code = 5361) FEV1/FVC % Predicted 79 (test code = 5359) FEV1/FVC % LLN (test 67 code = 5360) FEV1/FVC % Pre of 104 % Predicted (test code = 5362) FEF 25-75% Pre (test 2.77 L/s code = 5547) FEF 25-75% Predicted 2.13 (test code = 5546) FEF 25-75% LLN (test 1.08 code = 5545) FEF 25-75% % Pre of 129.9 % Predicted (test code = 5548) PEF Pre (test code = 6.37 L/s 5367) PEF Predicted (test 5.97 code = 5310) PEF LLN (test code = 4.35 5366) PEF % Pre of Predicted 106.8 % (test code = 5368) DLCO Pre (test code = 19.16 ml/(min*mmHg) 5423) DLCO Predicted (test 18.77 code = 5421) DLCO LLN (test code = 14.37 5422) DLCO % Pre of 102 % Predicted (test code = 5424) DLCOc Pre (test code = 20.54 ml/(min*mmHg) 5430) DLCOc Predicted (test 18.77 code = 5428) DLCOc LLN (test code = 14.37 5429) DLCOc % Pre of 109.4 % Predicted (test code = 5431) DL/VA Pre (test code = 4.84 ml/(min*mmHg*L) 5437) DL/VA Predicted (test 4.29 code = 5435) DL/VA LLN (test code = 3.31 5436) DL/VA % Pre of 112.9 % Predicted (test code = 5438) KCOc SB Pre (test code 5.19 ml/(min*mmHg*L) = 5535) KCOc SB Predicted 4.29 (test code = 5533) KCOc SB LLN (test code 3.31 = 5534) KCOc SB % Pre of 121 % Predicted (test code = 5536) VA SB Pre (test code = 3.96 L 5444) VA SB Predicted (test 4.39 code = 5442) VA SB LLN (test code = 3.55 5443) VA SB % Pre of 90.1 % Predicted (test code = 5445) Hb Pre (test code = 11.4 g(Hb)/dL 5540) [facility] antigen gzlau2981-77-83 12:09:09 Test Item Value Reference Range Interpretation Comments Interpretation (test code Additional Antibody = 3592994) Information:DP6=DPB1 *06:01/DPA1*01:03 SAB serum ID (test code = [id number]-[id number] 5866) [facility] serum collection D&T 06/14/2022 12:37 PM (test code = 5867) SAB class I antibody A23, A24, A25, A32, assignment (test code = B38, B49, B51, B57, 5870) B58, B59, B63 SAB cPRA class I (test 52 code = 5868) SAB class II antibody DP6 assignment (test code = 5871) SAB cPRA class II (test 2 code = 5869) Case number (test code = [id number]) Single antigen beads See link below for (test code = 4604) PDF [facility] [id number] 07:59:00 Phosphatidylethanol, 16:0/18:1 (POPEth)<10ng/mL06/16/2022 1:59 AM [facility] LABPhosphatidylethanol, 16:0/18:2 (PLPEth)<10ng/mL06/16/2022 1:59 AM [facility] [id number] 03:36:25 Test Item Value Reference Range Interpretation Comments Ventricular rate (test 53 code = 253) Atrial rate (test code 53 = 255) DC interval (test code 144 = 266) QRSD interval (test 148 code = 260) QT interval (test code 482 = 264) QTC interval (test code 452 = 265) P axis 1 (test code = 40 267) QRS axis 1 (test code = 84 268) T wave axis (test code 32 = 270) EKG impression (test Sinus code = 273) bradycardia-Right bundle branch block-Abnormal ECG-In automated comparison with ECG of 24-MAY-2022 17:16,-QT has shortened-Electronical ly Signed By Rich Mercer MD ([id number]) on 06/14/2022 9:36:22 PM [facility] RNA [Presence] in Respiratory specimen by HELENA with probe cplnrzxgy6997-18-77 18:27:06 Test Item Value Reference Range Interpretation Comments SARS-CoV-2 (COVID-19) RNA Not detected [Presence] in Respiratory specimen by HELENA with probe detection (test code = 75986-3) 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 employed in a Unknown healthcare setting (test code = 35620-2) Whether the patient has symptoms Unknown related to condition of interest (test code = 49622-1) Whether the patient was Unknown hospitalized for condition of interest (test code = 45539-9) Whether the patient was admitted Unknown to intensive care unit (ICU) for condition of interest (test code = 80662-6) Whether patient resides in a Unknown congregate care setting (test code = 60206-3) status (test code = Unknown 98786-6) Date and time of symptom onset Unknown (test code = 38009-4) [facility] ED Preliminary Interpretation - Not an Neibb1751-12-15 02:01:22 Test Item Value Reference Range Interpretation Comments SNOW (test code = SNOW) Radha Lin MD 06/15/2022 7:54 [facility] [place] [facility] ED Preliminary Interpretation - Not an OrderPerformed by: Radha Lin MDAuthorized by: Radha Lin MD ECG reviewed by ED Physician in the absence of a real estate site analyst: yes Interpretation: Interpretation: abnormal Rate: ECG rate: 75 ECG rate assessment: normal Rhythm: Rhythm: sinus rhythm Ectopy: Ectopy: none QRS: QRS axis: Normal QRS intervals: NormalConduction: Conduction: abnormal Abnormal conduction: complete RBBB ST segments: ST segments: NormalT waves: T waves: normal Lab Interpretation Abnormal (test code = 45695-5) [facility]abella OrozcoPrepare fresh frozen plasma, 1 Clkmy5935-46-76 18:35:00 Test Item Value Reference Range Interpretation Comments Product name (test code Thawed Plasma Pheresis = 25) Pt 1 Unit number (test code [id number] = 4001669) Product code (test code U0590G85 = 3092) Dispense status (test Transfused code = 24) Blood expiration date (test code = 302) Blood type code (test 8400 code = 308) Blood type (test code = AB POSITIVE 1314) Compatibility (test Not required code = 6400) Anabella CastroARS-CoV-2 (COVID-19) RNA [Presence] in Respiratory specimen by HELENA with probe cdbmrnicq4201-90-43 22:34:07 Test Item Value Reference Range Interpretation Comments SARS-CoV-2 (COVID-19) RNA Not detected [Presence] in Respiratory specimen by HELENA with probe detection (test code = 09492-1) 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 employed in a Unknown healthcare setting (test code = 40488-2) Whether the patient has symptoms Unknown related to condition of interest (test code = 57917-4) Whether the patient was Unknown hospitalized for condition of interest (test code = 37559-8) Whether the patient was admitted Unknown to intensive care unit (ICU) for condition of interest (test code = 47532-9) Whether patient resides in a Unknown congregate care setting (test code = 94027-3) status (test code = Unknown 39803-1) Date and time of symptom onset Unknown (test code = 61456-0) BROOKE Mendoza RBC, 1 [id number] 16:55:00 Test Item Value Reference Range Interpretation Comments Product name (test code Red Cells AS1 Leukored = 25) Irrad Unit number (test code [id number] = 2244721) Product code (test code V5712N31 = 3092) Dispense status (test Transfused code = 24) Blood expiration date (test code = 302) Blood type code (test 8400 code = 308) Blood type (test code = AB POSITIVE 1314) Compatibility (test Compatible code = 6400) [facility] HospitalInfluenza virus A and B nql1578-74-78 18:42:46 Test Item Value Reference Range Interpretation Comments SARS-CoV-2 (COVID-19) RNA Not detected [Presence] in Respiratory specimen by HELENA with probe detection (test code = 24905-5) Whether patient resides in a No congregate care setting (test code = 31532-0) Date and time of symptom onset Unknown (test code = 30173-5) Whether the patient was No hospitalized for condition of interest (test code = 68940-3) Whether the patient was admitted No to intensive care unit (ICU) for condition of interest (test code = 03283-7) 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 employed in a No healthcare setting (test code = 64312-5) Whether the patient has symptoms No related to condition of interest (test code = 24398-6) status (test code = No 38625-6) BROOKE ANDINOC with Znwhrspkfagm3659-52-51 03:42:09 Test Item Value Reference Range Interpretation [...] (test code = 52.8 fL 39.0-49.9 H 83898-8) RDW-CV (test code = 17.0 % 12.0-15.5 H 788-0) PLT (test code = See_Comment L [Automated 777-3) message] The sy stem which generated this result transmitted reference range : 166 - 358 10*3/ ?L. The reference r davi was not used to interpret this result as normal/abnormal . MPV (test code = 9.8 fL 9.5-12.9 72028-9) IPF % (test code = 2.5 % 1.3-7.7 Platelet count 4744590116) measured by fluorescence method. NRBC/100 WBC (test See_Comment [Automat ed code = 8041241620) message] The system which generated this result transmitted reference range : 0.0 - 10.0 /100 WBCs. The refer ence range was not u sed to interpret th is result as normal/abnormal . NRBC x10^3 (test code See_Comment [Auto mated = 0928486529) message] The s ystem which generated this result transmitted reference range : 10*3/?L. The reference range was not used to interpret this result as normal/abnormal . GRAN MAT (NEUT) % 63.3 % (test code = 770-8) IMM GRAN % (test code 0.30 % = 6190525459) LYMPH % (test code = 18.7 % 736-9) MONO % (test code = 14.5 % 5905-5) EOS % (test code = 2.6 % 713-8) BASO % (test code = 0.6 % 706-2) GRAN MAT x10^3(ANC) 1.96 10*3/uL 1.88-7.09 (test code = 2094604833) IMM GRAN x10^3 (test 0.00-0.06 code = 5558086567) LYMPH x10^3 (test code 0.58 10*3/uL 1.32-3.29 L = 731-0) MONO x10^3 (test code 0.45 10*3/uL 0.33-0.92 = 742-7) EOS x10^3 (test code = 0.08 10*3/uL 0.03-0.39 711-2) BASO x10^3 (test code 0.01-0.07 = 704-7) BASO STIPPLING (test Present A code = 703-9) PLT ESTIMATE (test Decreased Normal A code = 9317-9) Lab Interpretation Abnormal (test code = 01795-9) [facility] HospitalY[facility] [id number] 03:26:02 Test Item Value Reference Interpretation Comments Range TROPONIN I (test 0.003 ng/mL See_Comment [Automated code = 1706333039) message] The system which generated this result [...] biotin. Lab Interpretation Normal (test code = 23130-6) [facility] HospitalN-TERMINAL [id number] 03:23:01 Test Item Value Reference Range Interpretation Comments NT-proBNP (test code 36 pg/mL See_Comment [Autom ated = 0176238123) message] The system which generated this result transmitted reference range : <=125. The reference range was not used to interpret this result as normal/abnormal . SNOW (test code = SNOW) Biotin has been reported to cause a negative bias, interpret results relative to patient's use of biotin. Lab Interpretation Normal (test code = 56630-8) [facility] (NA, K, CL, CO2, GLUCOSE, BUN, CREATININE, CA)2022-04-16 03:14:42 Test Item Value Reference Range Interpretation Comments NA (test code = 138 mmol/L 135-145 4374469664) K (test code = 4.8 mmol/L 3.5-5.0 7081430195) CL (test code = 110 mmol/L 98-108 H 5147386301) CO2 TOTAL (test code = 22 mmol/L 23-31 L 0481787214) AGAP (test code = 2-16 7966630868) BUN (test code = 15 mg/dL 7-23 9234152937) GLUCOSE (test code = 90 mg/dL 70-110 2797574072) CREATININE (test code = 0.49 mg/dL 0.50-1.04 L 0368468474) CALCIUM (test code = 7.9 mg/dL 8.6-10.6 L 6537575035) eGFR (test code = mL/min/1.73m2 6793304783) SNOW (test code = SNOW) Association of [...] tests). Lab Interpretation Abnormal (test code = 01356-8) [facility] (ALB, T.PRO, BILI T, BU/BC, ALT, AST, ALK PHOS)2022-04-16 03:14:22 Test Item Value Reference Range Interpretation Comments TOTAL BILI (test code = 7740778944) 1.5 mg/dL 0.1-1.1 H BILI UNCON (test code = 2023377782) 1.2 mg/dL 0.1-1.1 H BILI CONJ (test code = 1063219726) 0.0 mg/dL 0.0-0.3 T PROTEIN (test code = 9210600565) 6.5 g/dL 6.3-8.2 ALBUMIN (test code = 7537245235) 3.4 g/dL 3.5-5.0 L ALK PHOS (test code = 8950428461) 162 U/L 34-122 H ALTv (test code = 1742-6) 50 U/L 5-35 H AST(SGOT) (test code = 3769682746) 64 U/L 13-40 H Lab Interpretation (test code = Abnormal 41915-0) General acute hospital WITH [id number] 02:57:34 Test Item Value Reference Range Interpretation [...] (test code = 52.2 fL 39.0-49.9 H 86851-5) RDW-CV (test code = 16.7 % 12.0-15.5 H 788-0) PLT (test code = See_Comment L [Automated 777-3) message] The sy stem which generated this result transmitted reference range : 166 - 358 10*3/ ?L. The reference r davi was not used to interpret this result as normal/abnormal . MPV (test code = 11.4 fL 9.5-12.9 29643-0) NRBC/100 WBC (test See_Comment [Automat ed code = 2558136771) message] The system which generated this result transmitted reference range : 0.0 - 10.0 /100 WBCs. The refer ence range was not u sed to interpret th is result as normal/abnormal . NRBC x10^3 (test code See_Comment [Auto mated = 5546378569) message] The s ystem which generated this result transmitted reference range : 10*3/?L. The reference range was not used to interpret this result as normal/abnormal . GRAN MAT (NEUT) % 62.2 % (test code = 770-8) IMM GRAN % (test code 0.80 % = 1526587908) LYMPH % (test code = 20.2 % 736-9) MONO % (test code = 14.7 % 5905-5) EOS % (test code = 1.7 % 713-8) BASO % (test code = 0.4 % 706-2) GRAN MAT x10^3(ANC) 1.48 10*3/uL 1.88-7.09 L (test code = 8860148989) IMM GRAN x10^3 (test 0.00-0.06 code = 3042477295) LYMPH x10^3 (test code 0.48 10*3/uL 1.32-3.29 L = 731-0) MONO x10^3 (test code 0.35 10*3/uL 0.33-0.92 = 742-7) EOS x10^3 (test code = 0.04 10*3/uL 0.03-0.39 711-2) BASO x10^3 (test code 0.01-0.07 = 704-7) PLT ESTIMATE (test Decreased Normal A code = 9317-9) Lab Interpretation Abnormal (test code = 90593-6) [facility] HospitalProthrombin Time / [id number] 02:35:10 Test Item Value Reference Range Interpretation Comments PROTIME PATIENT (test See_Comment H [Auto mated message] code = 5964-2) The system [employer] generated this result transmitted ref erence range: 12.0 - 1 4.7 Seconds. The reference range was not used to int erpret this result as normal/abnormal . INR (test code = 6301-6) Nor mal INR <1.1; Warfarin Therap eutic range 2.0 to 3. 0 or 2.5 to 3.5, dep ending upon the indica tions. Lab Interpretation (test Abnormal code = 04338-2) [facility] HospitalCOMP. METABOLIC PANEL (45432)2022-04-10 02:34:50 Test Item Value Reference Range Interpretation Comments NA (test code = 140 mmol/L 135-145 6265953379) K (test code = 4.4 mmol/L 3.5-5.0 9397642112) CL (test code = 111 mmol/L 98-108 H 6199144274) CO2 TOTAL (test code = 23 mmol/L 23-31 3982026354) AGAP (test code = 2-16 7105826623) BUN (test code = 13 mg/dL 7-23 6824118965) GLUCOSE (test code = 86 mg/dL 70-110 5864793563) CREATININE (test code = 0.62 mg/dL 0.50-1.04 2354847864) TOTAL BILI (test code = 1.6 mg/dL 0.1-1.1 H 5225364433) CALCIUM (test code = 7.6 mg/dL 8.6-10.6 L 8795666991) T PROTEIN (test code = 6.3 g/dL 6.3-8.2 8128850676) ALBUMIN (test code = 3.3 g/dL 3.5-5.0 L 3659552831) ALK PHOS (test code = 160 U/L 34-122 H 1728669075) ALTv (test code = 46 U/L 5-35 H 1742-6) AST(SGOT) (test code = 58 U/L 13-40 H 5715540166) eGFR (test code = mL/min/1.73m2 2818986972) SNOW (test code = SNOW) Association of [...] tests). Lab Interpretation Abnormal (test code = 13490-4) [facility]MAGN[facility]IUM2022-[facility]-31 02:34:50 Test Item Value Reference Range Interpretation Comments MAGNESIUM (test code = 3734871445) 1.8 mg/dL 1.7-2.4 Lab Interpretation (test code = Normal 12974-5) [facility] HospitalCREATINE [id number] 02:34:29 Test Item Value Reference Range Interpretation Comments CK (test code = 0221805990) 105 U/L 33-194 Lab Interpretation (test code = Normal 68900-7) [facility] HospitalAMMONIA, SSZKMJ5223-79-57 02:33:54 Test Item Value Reference Range Interpretation Comments AMMONIA (test code = 1210946226) 90 umol/L 9-33 H Lab Interpretation (test code = Abnormal 59102-2) [facility] fezllwf5491-17-69 09:39:00 Test Item Value Reference Range Interpretation Comments POC glucose (test code = 107 mg/dL 65-99 H Ope rator Name: Aris 75288-1) SaraDevice ID: [id number] able: TM 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 Interpretation (test Abnormal code = 16932-9) [facility] kxaqwzz3605-27-12 09:39:00 Test Item Value Reference Range Interpretation Comments POC glucose (test code = 107 mg/dL 65-99 H Ope rator Name: Aris 11043-7) SaraDevice ID: [id number] able: TM 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 Interpretation (test Abnormal code = 58454-7) [facility] zmhfkus4679-05-66 09:39:00 Test Item Value Reference Range Interpretation Comments POC glucose (test code = 107 mg/dL 65-99 H Ope rator Name: Aris 83039-1) SaraDevice ID: [id number] able: [facility] 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 Interpretation (test Abnormal code = 95708-6) [facility] bupwdvl6544-90-18 09:39:00 Test Item Value Reference Range Interpretation Comments POC glucose (test code = 107 mg/dL 65-99 H Ope rator Name: Aris 30792-8) Hilda ID: [id number] able: TM 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 Interpretation (test Abnormal code = 65797-1) [place] [address] ffbi9879-96-20 02:51:50 Test Item Value Reference Range Interpretation Comments Ventricular rate (test code = 253) Atrial rate (test code = 255) DC interval (test code = 266) QRSD interval (test code = 260) QT interval (test code = 264) QTC interval (test code = 265) P axis 1 (test code = 267) QRS axis 1 (test code = 268) T wave axis (test code = 270) EKG impression (test Normal sinus code = 273) rhythm-Right bundle branch block-Abnormal ECG-- [address]2022-11-18 02:51:50 Test Item Value Reference Range Interpretation Comments Ventricular rate (test code = 253) Atrial rate (test code = 255) DC interval (test code = 266) QRSD interval (test code = 260) QT interval (test code = 264) QTC interval (test code = 265) P axis 1 (test code = 267) QRS axis 1 (test code = 268) T wave axis (test code = 270) EKG impression (test Normal sinus code = 273) rhythm-Right bundle branch block-Abnormal ECG-- [address]2022-11-18 02:51:50 Test Item Value Reference Range Interpretation Comments Ventricular rate (test code = 253) Atrial rate (test code = 255) DC interval (test code = 266) QRSD interval (test code = 260) QT interval (test code = 264) QTC interval (test code = 265) P axis 1 (test code = 267) QRS axis 1 (test code = 268) T wave axis (test code = 270) EKG impression (test Normal sinus code = 273) rhythm-Right bundle branch block-Abnormal ECG-- [facility] 12 iuat0031-27-79 02:51:50 Test Item Value Reference Range Interpretation Comments Ventricular rate (test code = 253) Atrial rate (test code = 255) DC interval (test code = 266) QRSD interval (test code = 260) QT interval (test code = 264) QTC interval (test code = 265) P axis 1 (test code = 267) QRS axis 1 (test code = 268) T wave axis (test code = 270) EKG impression (test Normal sinus code = 273) rhythm-Right bundle branch block-Abnormal ECG-- [facility] ED Preliminary Interpretation - Not an [id number] 20:37:40 Test Item Value Reference Range Interpretation Comments SNOW (test code = SNOW) Stevo Hoskins DO 02/28/2022 12:23 [facility] [place] [place] Preliminary Interpretation - Not an OrderPerformed by: Stevo Hoskins DOAuthorized by: Stevo Hoskins DO ECG reviewed by ED Physician in the absence of a real estate site analyst: yes Interpretation: Interpretation: abnormal Rate: ECG rate: 70 ECG rate assessment: normal Rhythm: Rhythm: sinus rhythm Ectopy: Ectopy: none QRS: QRS axis: Normal QRS intervals: WideConduction: Conduction: abnormal Abnormal conduction: complete RBBB ST segments: ST segments: NormalT waves: T waves: non-specific Lab Interpretation Abnormal (test code = 36763-9) [facility] ED Preliminary Interpretation - Not an [id number] 20:37:40 Test Item Value Reference Range Interpretation Comments SNOW (test code = SNOW) Stevo Hoskins DO 02/28/2022 12:23 [facility] [place] [facility] Preliminary Interpretation - Not an OrderPerformed by: Stevo Hoskins DOAuthorized by: Stevo Hoskins DO ECG reviewed by ED Physician in the absence of a real estate site analyst: yes Interpretation: Interpretation: abnormal Rate: ECG rate: 70 ECG rate assessment: normal Rhythm: Rhythm: sinus rhythm Ectopy: Ectopy: none QRS: QRS axis: Normal QRS intervals: WideConduction: Conduction: abnormal Abnormal conduction: complete RBBB ST segments: ST segments: NormalT waves: T waves: non-specific Lab Interpretation Abnormal (test code = 14888-0) [facility] Preliminary Interpretation - Not an [id number] 20:37:40 Test Item Value Reference Range Interpretation Comments SNOW (test code = SNOW) Stevo Hoskins DO 02/28/2022 12:23 [facility] [place] [facility] Preliminary Interpretation - Not an OrderPerformed by: Stevo Hoskins DOAuthorized by: Stevo Hoskins DO ECG reviewed by ED Physician in the absence of a real estate site analyst: yes Interpretation: Interpretation: abnormal Rate: ECG rate: 70 ECG rate assessment: normal Rhythm: Rhythm: sinus rhythm Ectopy: Ectopy: none QRS: QRS axis: Normal QRS intervals: WideConduction: Conduction: abnormal Abnormal conduction: complete RBBB ST segments: ST segments: NormalT waves: T waves: non-specific Lab Interpretation Abnormal (test code = 67691-6) [facility] Preliminary Interpretation - Not an [id number] 20:37:40 Test Item Value Reference Range Interpretation Comments SNOW (test code = SNOW) Stevo Hoskins DO 02/28/2022 12:23 [facility] [place] [facility] Preliminary Interpretation - Not an OrderPerformed by: Stevo Hoskins DOAuthorized by: Stevo Hoskins DO ECG reviewed by ED Physician in the absence of a real estate site analyst: yes Interpretation: Interpretation: abnormal Rate: ECG rate: 70 ECG rate assessment: normal Rhythm: Rhythm: sinus rhythm Ectopy: Ectopy: none QRS: QRS axis: Normal QRS intervals: WideConduction: Conduction: abnormal Abnormal conduction: complete RBBB ST segments: ST segments: NormalT waves: T waves: non-specific Lab Interpretation Abnormal (test code = 89404-8) [facility] [Presence] in Respiratory specimen by HELENA with probe [id number] 18:28:31 Test Item Value Reference Range Interpretation Comments SARS-CoV-2 (COVID-19) RNA Not detected [Presence] in Respiratory specimen by HELENA with probe detection (test code = 51515-1) 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 employed in a Unknown healthcare setting (test code = 80152-1) Whether the patient has symptoms Unknown related to condition of interest (test code = 57789-6) Whether the patient was Unknown hospitalized for condition of interest (test code = 82031-3) Whether the patient was admitted Unknown to intensive care unit (ICU) for condition of interest (test code = 15396-1) Whether patient resides in a Unknown congregate care setting (test code = 83867-3) status (test code = Unknown 46154-6) Date and time of symptom onset Unknown (test code = 47396-3) [facility] WITH KURF0019-05-30 21:35:39 Test Item Value Reference Range Interpretation [...] (test code = 53.7 fL 39.0-49.9 H 93935-6) RDW-CV (test code = 17.0 % 12.0-15.5 H 788-0) PLT (test code = See_Comment L [Automated 777-3) message] The sy stem which generated this result transmitted reference range : 166 - 358 10*3/ ?L. The reference r davi was not used to interpret this result as normal/abnormal . MPV (test code = 9.8 fL 9.5-12.9 68697-3) IPF % (test code = 2.2 % 1.3-7.7 Platelet count 0560943186) measured by fluorescence method. NRBC/100 WBC (test See_Comment [Automat ed code = 8551044990) message] The system which generated this result transmitted reference range : 0.0 - 10.0 /100 WBCs. The refer ence range was not u sed to interpret th is result as normal/abnormal . NRBC x10^3 (test code See_Comment [Auto mated = 7310687658) message] The s ystem which generated this result transmitted reference range : 10*3/?L. The reference range was not used to interpret this result as normal/abnormal . SEG % (test code = 60 % 33-76 40474-8) BAND % (test code = 3 % 0-1 H 88765-8) LYMPH % (test code = 23 % 14-54 98524-9) MONO % (test code = 12 % 0-4 H 27918-0) EOS % (test code = 2 % 0-3 91890-7) ANC (test code = 1.38 10*3/uL 1.88-7.09 L 753-4) PLT ESTIMATE (test Decreased Normal A code = 9317-9) Lab Interpretation Abnormal (test code = 34573-4) [facility]. METABOLIC PANEL (30433)2022-02-15 20:44:39 Test Item Value Reference Range Interpretation Comments NA (test code = 137 mmol/L 135-145 1330347114) K (test code = 3.8 mmol/L 3.5-5.0 3408709205) CL (test code = 107 mmol/L 98-108 4279957097) CO2 TOTAL (test code = 25 mmol/L 23-31 9315138527) AGAP (test code = 2-16 6514148240) BUN (test code = 11 mg/dL 7-23 6579982353) GLUCOSE (test code = 103 mg/dL 70-110 0848455858) CREATININE (test code = 0.53 mg/dL 0.50-1.04 8917083431) TOTAL BILI (test code = 1.9 mg/dL 0.1-1.1 H 3321122702) CALCIUM (test code = 8.2 mg/dL 8.6-10.6 L 4749315634) T PROTEIN (test code = 6.4 g/dL 6.3-8.2 3716313235) ALBUMIN (test code = 3.4 g/dL 3.5-5.0 L 2687592320) ALK PHOS (test code = 146 U/L 34-122 H 5490226987) ALTv (test code = 40 U/L 5-35 H 1742-6) AST(SGOT) (test code = 52 U/L 13-40 H 2590439312) eGFR (test code = mL/min/1.73m2 0254044101) SNOW (test code = SNOW) Association of [...] tests). Lab Interpretation Abnormal (test code = 78627-9) [facility] Test Item Value Reference Range Interpretation Comments LIPASE (test code = 0285768456) 298 U/L 0-220 H Lab Interpretation (test code = Abnormal 72698-8) [facility] gkxlnmu2093-54-60 03:08:00 Test Item Value Reference Range Interpretation Comments Urine culture (test SEE COMMENT Bacteriu bartolo screen code = 2493072) negative. [facility] rqoquxx2307-46-63 03:08:00 Test Item Value Reference Range Interpretation Comments Urine culture (test SEE COMMENT Bacteriu bartolo screen code = 6903358) negative. [facility] siiihjn5026-52-34 03:08:00 Test Item Value Reference Range Interpretation Comments Urine culture (test SEE COMMENT Bacteriu bartolo screen code = 5175533) negative. [facility] pnqxzzt7471-05-23 03:08:00 Test Item Value Reference Range Interpretation Comments Urine culture (test SEE COMMENT Bacteriu bartolo screen code = 4095301) negative. [facility] RNA [Presence] in Respiratory specimen by HELENA with probe ranmjuznr8991-37-07 02:16:27 Test Item Value Reference Range Interpretation Comments SARS-CoV-2 (COVID-19) RNA Not detected [Presence] in Respiratory specimen by HELENA with probe detection (test code = 86242-6) 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 employed in a Unknown healthcare setting (test code = 97187-8) Whether the patient has symptoms Unknown related to condition of interest (test code = 65340-6) Whether the patient was Unknown hospitalized for condition of interest (test code = 06613-3) Whether the patient was admitted Unknown to intensive care unit (ICU) for condition of interest (test code = 92147-1) Whether patient resides in a Unknown congregate care setting (test code = 54320-1) status (test code = Unknown 46746-2) Date and time of symptom onset Unknown (test code = 20971-7) [facility] hvjlgmo3631-37-99 22:22:49 Test Item Value Reference Range Interpretation Comments Case number (test code = [id number]) Surgical pathology See link below for report (test code = PDF Lab Report 2255) Result status (test code This is Final Report = [id number]) for [address] pathology [id number] 22:22:49 Test Item Value Reference Range Interpretation Comments Case number (test code = [id number]) Surgical pathology See link below for report (test code = PDF Lab Report 2255) Result status (test code This is Final Report = [id number]) for [address] pathology cgxdhjk4074-78-54 22:22:49 Test Item Value Reference Range Interpretation Comments Case number (test code = [id number]) Surgical pathology See link below for report (test code = PDF Lab Report 2255) Result status (test code This is Final Report = [id number]) for [address] pathology osmupio4281-58-88 22:22:49 Test Item Value Reference Range Interpretation Comments Case number (test code = [id number]) Surgical pathology See link below for report (test code = PDF Lab Report 2255) Result status (test code This is Final Report = 7735405) for [address] pathology [id number] 22:22:49 Test Item Value Reference Range Interpretation Comments Case number (test code = [id number]) Surgical pathology See link below for report (test code = PDF Lab Report 2255) Result status (test code This is Final Report = 2809148) for [address] pathology [id number] 22:22:49 Test Item Value Reference Range Interpretation Comments Case number (test code = [id number]) Surgical pathology See link below for report (test code = PDF Lab Report 2255) Result status (test code This is Final Report = [id number]) for [address] pathology [id number] 22:22:49 Test Item Value Reference Range Interpretation Comments Case number (test code = [id number]) Surgical pathology See link below for report (test code = PDF Lab Report 2255) Result status (test code This is Final Report = [id number]) [address] zccumnm0921-29-54 17:57:00 Test Item Value Reference Range Interpretation Comments POC glucose (test code = 121 mg/dL 65-99 H Ope rator Name: [id number]) Rustam Elaine vice ID: [id number] able: [facility] 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 Interpretation (test Abnormal code = 18594-6) [facility] oihrkaj8852-92-70 17:57:00 Test Item Value Reference Range Interpretation Comments POC glucose (test code = 121 mg/dL 65-99 H Ope rator Name: 02573-8) Rustam Elaine vice ID: [id number] able: [facility] 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 Interpretation (test Abnormal code = 53290-2) [facility] vtxaopn2531-76-29 11:53:00 Test Item Value Reference Range Interpretation Comments Urine culture (test SEE COMMENT Bacteriu bartolo screen code = 9033773) negative. [facility] nublwmq3807-05-66 11:53:00 Test Item Value Reference Range Interpretation Comments Urine culture (test SEE COMMENT Bacteriu bartolo screen code = 6148159) negative. [facility] RNA [Presence] in Respiratory specimen by HELENA with probe cgxmxdvti7469-49-01 08:30:51 Test Item Value Reference Range Interpretation Comments SARS-CoV-2 (COVID-19) RNA Not detected [Presence] in Respiratory specimen by HELENA with probe detection (test code = 34694-0) 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 employed in a Unknown healthcare setting (test code = 66082-4) Whether the patient has symptoms Unknown related to condition of interest (test code = 79362-6) Whether the patient was Unknown hospitalized for condition of interest (test code = 48849-3) Whether the patient was admitted Unknown to intensive care unit (ICU) for condition of interest (test code = 46021-3) Whether patient resides in a Unknown congregate care setting (test code = 34660-8) status (test code = Unknown 86673-6) Date and time of symptom onset Unknown (test code = 14222-4) [facility] 12 ahjy8121-05-19 12:19:45 Test Item Value Reference Range Interpretation Comments Ventricular rate (test code = 253) Atrial rate (test code = 255) DC interval (test code = 266) QRSD interval [...] of 26-NOV-2021 19:29,-No significant change was found- [place] [address] jewh0197-32-54 12:19:45 Test Item Value Reference Range Interpretation Comments Ventricular rate (test code = 253) Atrial rate (test code = 255) DC interval (test code = 266) QRSD interval (test code = 260) QT interval (test code = 264) QTC interval (test code = 265) P axis 1 (test code = 267) QRS axis 1 (test code = 268) T wave axis (test code = 270) EKG impression (test Normal sinus code = 273) rhythm-Right bundle branch block-Abnormal ECG-In automated comparison with ECG of 26-Nov-2021:29,-No significant change was found- [place] [address] osru9063-67-52 12:19:45 Test Item Value Reference Range Interpretation Comments Ventricular rate (test code = 253) Atrial rate (test code = 255) DC interval (test code = 266) QRSD interval (test code = 260) QT interval (test code = 264) QTC interval (test code = 265) P axis 1 (test code = 267) QRS axis 1 (test code = 268) T wave axis (test code = 270) EKG impression (test Normal sinus code = 273) rhythm-Right bundle branch block-Abnormal ECG-In automated comparison with ECG of 26-Nov-2021:29,-No significant change was found- [facility] ED Preliminary Interpretation - Not an Ynfdf1659-37-55 05:33:45 Test Item Value Reference Range Interpretation Comments SNOW (test code = SNOW) Stevo Hoskins DO 12/13/2021 12:08 [facility] [place] ED Preliminary Interpretation - Not an OrderPerformed by: Stevo Hoskins DOAuthorized by: Stevo Hoskins DO ECG reviewed by ED Physician in the absence of a real estate site analyst: yes Previous ECG: Previous ECG: UnavailableInterpretat ion: Interpretation: abnormal Rate: ECG rate: 63 ECG rate assessment: normal Rhythm: Rhythm: sinus rhythm Ectopy: Ectopy: none QRS: QRS axis: Normal QRS intervals: NormalConduction: Conduction: abnormal Abnormal conduction: complete RBBB ST segments: ST segments: NormalT waves: T waves: non-specific Lab Interpretation Abnormal (test code = 14094-7) [facility] ED Preliminary Interpretation - Not an Gltzp1997-10-17 05:33:45 Test Item Value Reference Range Interpretation Comments SNOW (test code = SNOW) Stevo Hoskins DO 12/13/2021 12:08 [facility] [place] ED Preliminary Interpretation - Not an OrderPerformed by: Stevo Hoskins DOAuthorized by: Stevo Hoskins DO ECG reviewed by ED Physician in the absence of a real estate site analyst: yes Previous ECG: Previous ECG: UnavailableInterpretat ion: Interpretation: abnormal Rate: ECG rate: 63 ECG rate assessment: normal Rhythm: Rhythm: sinus rhythm Ectopy: Ectopy: none QRS: QRS axis: Normal QRS intervals: NormalConduction: Conduction: abnormal Abnormal conduction: complete RBBB ST segments: ST segments: NormalT waves: T waves: non-specific Lab Interpretation Abnormal (test code = 19516-5) [facility] ED Preliminary Interpretation - Not an Ednfc1578-54-57 05:33:45 Test Item Value Reference Range Interpretation Comments SNOW (test code = SNOW) Stevo Hoskins DO 12/13/2021 12:08 [facility] [place] ED Preliminary Interpretation - Not an OrderPerformed by: Stevo Hoskins DOAuthorized by: Stevo Hoskins DO ECG reviewed by ED Physician in the absence of a real estate site analyst: yes Previous ECG: Previous ECG: UnavailableInterpretat ion: Interpretation: abnormal Rate: ECG rate: 63 ECG rate assessment: normal Rhythm: Rhythm: sinus rhythm Ectopy: Ectopy: none QRS: QRS axis: Normal QRS intervals: NormalConduction: Conduction: abnormal Abnormal conduction: complete RBBB ST segments: ST segments: NormalT waves: T waves: non-specific Lab Interpretation Abnormal (test code = 42550-3) [facility] uccqlrp0240-77-54 05:22:00 Test Item Value Reference Range Interpretation Comments Urine culture (test SEE COMMENT Bacteriu bartolo screen code = 4106301) negative. [facility]NmM-[facility] (COVID-19) RNA [Presence] in Respiratory specimen by HELENA with probe pbikomzgt9797-92-17 02:31:14 Test Item Value Reference Range Interpretation Comments SARS-CoV-2 (COVID-19) RNA Not detected [Presence] in Respiratory specimen by HELENA with probe detection (test code = 09398-9) 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 employed in a Unknown healthcare setting (test code = 49115-2) Whether the patient has symptoms Unknown related to condition of interest (test code = 32525-2) Whether the patient was Unknown hospitalized for condition of interest (test code = 38362-6) Whether the patient was admitted Unknown to intensive care unit (ICU) for condition of interest (test code = 49635-5) Whether patient resides in a Unknown congregate care setting (test code = 70575-2) status (test code = Unknown 52182-6) Date and time of symptom onset Unknown (test code = 30091-4) [facility] 12 gbzs6604-65-32 13:24:41 Test Item Value Reference Range Interpretation Comments Ventricular rate (test code = 253) Atrial rate (test code = 255) DC interval (test code = 266) QRSD interval (test code = 260) QT interval (test code = 264) QTC interval (test code = 265) P axis 1 (test code = 267) QRS axis 1 (test code = 268) T wave axis (test code = 270) EKG impression (test code Normal sinus = 273) rhythm-Right bundle branch block- [facility] Preliminary Interpretation - Not an Dzwer2566-78-39 00:04:12 Test Item Value Reference Range Interpretation Comments SNOW (test code = SNOW) Jefferson Skelton MD 12/04/2021 11:12 [facility] [place] Preliminary Interpretation - Not an OrderPerformed by: Jefferson Skelton MDAuthorized by: Jefferson Skelton MD ECG reviewed by ED Physician in the absence of a real estate site analyst: yes Interpretation: Interpretation: abnormal Rate: ECG rate: 70 ECG rate assessment: normal Rhythm: Rhythm: sinus rhythm QRS: QRS axis: Normal QRS intervals: WideConduction: Conduction: abnormal Abnormal conduction: complete RBBB ST segments: ST segments: NormalOther findings: Other findings: prolonged qTc interval Lab Interpretation Abnormal (test code = 84593-7) [facility] gfrahrb3589[facility]-42 02:26:00 Test Item Value Reference Range Interpretation Comments Urine culture (test SEE COMMENT Bacteriu bartolo screen code = 9046526) negative. [facility] FkczspluGFQH-UcM-7 (COVID-19) RNA [Presence] in Respiratory specimen by HELENA with probe wmfpsxpqv4116-94-98 00:33:54 Test Item Value Reference Range Interpretation Comments SARS-CoV-2 (COVID-19) RNA Not detected [Presence] in Respiratory specimen by HELENA with probe detection (test code = 87354-0) 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 employed in a Unknown healthcare setting (test code = 89816-0) Whether the patient has symptoms Unknown related to condition of interest (test code = 76770-1) Whether the patient was Unknown hospitalized for condition of interest (test code = 45603-3) Whether the patient was admitted Unknown to intensive care unit (ICU) for condition of interest (test code = 83129-4) Whether patient resides in a Unknown congregate care setting (test code = 56324-7) status (test code = Unknown 93438-7) Date and time of symptom onset Unknown (test code = 25482-6) [facility]2021-06-25 09:34:08 Test Item Value Reference Range Interpretation Comments MAGNESIUM (test code = 5680736689) 1.4 mg/dL 1.7-2.4 L Lab Interpretation (test code = Abnormal 52635-6) [facility] METABOLIC PANEL (86777)2020-10-03 09:33:48 Test Item Value Reference Range Interpretation Comments NA (test code = 136 mmol/L 135-145 1140712379) K (test code = 3.3 mmol/L 3.5-5.0 L 3671410715) CL (test code = 100 mmol/L 98-108 9823282468) CO2 TOTAL (test code = 33 mmol/L 23-31 H 0233786727) AGAP (test code = 2-16 7475335431) BUN (test code = 3 mg/dL 7-23 L 3481568206) GLUCOSE (test code = 95 mg/dL 70-110 8814570063) CREATININE (test code = 0.47 mg/dL 0.50-1.04 L 6071563488) TOTAL BILI (test code = 1.5 mg/dL 0.1-1.1 H 1689213819) CALCIUM (test code = 8.1 mg/dL 8.6-10.6 L 1992007513) T PROTEIN (test code = 5.9 g/dL 6.3-8.2 L 8195432750) ALBUMIN (test code = 2.9 g/dL 3.5-5.0 L 7482472075) ALK PHOS (test code = 115 U/L 34-122 1853952953) ALTv (test code = 24 U/L 5-35 1742-6) AST(SGOT) (test code = 35 U/L 13-40 7532206854) eGFR (test code = mL/min/1.73m2 5330862071) SNOW (test code = SNOW) Association of [...] tests). Lab Interpretation Abnormal (test code = 26156-8) [facility]:28 Test Item Value Reference Range Interpretation Comments PHOSPHORUS (test code = 9963290414) 2.8 mg/dL 2.5-5.0 Lab Interpretation (test code = Normal 61799-3) General acute hospital WITH BQGS5741-81-17 09:31:46 Test Item Value Reference Range Interpretation [...] (test code = 53.8 fL 39.0-49.9 H 79620-5) RDW-CV (test code = 19.9 % 12.0-15.5 H 788-0) PLT (test code = See_Comment L [Automated 777-3) message] The sy stem which generated this result transmitted reference range : 166 - 358 10*3/ ?L. The reference r davi was not used to interpret this result as normal/abnormal . MPV (test code = 10.9 fL 9.5-12.9 55954-7) IPF % (test code = 3.6 % 1.3-7.7 Platelet count 4659114221) measured by fluorescence method. NRBC/100 WBC (test See_Comment [Automat ed code = 4412959098) message] The system which generated this result transmitted reference range : 0.0 - 10.0 /100 WBCs. The refer ence range was not u sed to interpret th is result as normal/abnormal . NRBC x10^3 (test code See_Comment [Auto mated = 8043200665) message] The s ystem which generated this result transmitted reference range : 10*3/?L. The reference range was not used to interpret this result as normal/abnormal . GRAN MAT (NEUT) % 68.1 % (test code = 770-8) IMM GRAN % (test code 1.10 % = 7287002242) LYMPH % (test code = 15.5 % 736-9) MONO % (test code = 11.3 % 5905-5) EOS % (test code = 3.4 % 713-8) BASO % (test code = 0.6 % 706-2) GRAN MAT x10^3(ANC) 2.42 10*3/uL 1.88-7.09 (test code = 7056345646) IMM GRAN x10^3 (test 0.04 10*3/uL 0.00-0.06 code = 7468780645) LYMPH x10^3 (test code 0.55 10*3/uL 1.32-3.29 L = 731-0) MONO x10^3 (test code 0.40 10*3/uL 0.33-0.92 = 742-7) EOS x10^3 (test code = 0.12 10*3/uL 0.03-0.39 711-2) BASO x10^3 (test code <0.03 0.01-0.07 = 704-7) Lab Interpretation Abnormal (test code = 84081-7) General acute hospital WITH KRKV2631-16-72 10:47:09 Test Item Value Reference Range Interpretation [...] (test code = 52.2 fL 39.0-49.9 H 00354-4) RDW-CV (test code = 18.6 % 12.0-15.5 H 788-0) PLT (test code = See_Comment L [Automated 777-3) message] The sy stem which generated this result transmitted reference range : 166 - 358 10*3/ ?L. The reference r davi was not used to interpret this result as normal/abnormal . MPV (test code = 10.1 fL 9.5-12.9 54097-3) IPF % (test code = 3.2 % 1.3-7.7 Platelet count 4574614784) measured by fluorescence method. NRBC/100 WBC (test See_Comment [Automat ed code = 9860416142) message] The system which generated this result transmitted reference range : 0.0 - 10.0 /100 WBCs. The refer ence range was not u sed to interpret th is result as normal/abnormal . NRBC x10^3 (test code See_Comment [Auto mated = 3719771204) message] The s ystem which generated this result transmitted reference range : 10*3/?L. The reference range was not used to interpret this result as normal/abnormal . GRAN MAT (NEUT) % 65.1 % (test code = 770-8) IMM GRAN % (test code 1.20 % = 8344438900) LYMPH % (test code = 16.9 % 736-9) MONO % (test code = 11.5 % 5905-5) EOS % (test code = 4.5 % 713-8) BASO % (test code = 0.8 % 706-2) GRAN MAT x10^3(ANC) 1.58 10*3/uL 1.88-7.09 L (test code = 7023897144) IMM GRAN x10^3 (test 0.03 10*3/uL 0.00-0.06 code = 8743419068) LYMPH x10^3 (test code 0.41 10*3/uL 1.32-3.29 L = 731-0) MONO x10^3 (test code 0.28 10*3/uL 0.33-0.92 L = 742-7) EOS x10^3 (test code = 0.11 10*3/uL 0.03-0.39 711-2) BASO x10^3 (test code <0.03 0.01-0.07 = 704-7) POLYCHROMASIA (test 2+ See_Comment [Automa josemanuel code = 15640-1) message] The system which generated this result transmitted reference range : 2+. The referen ce range was not u sed to interpret th is result as normal/abnormal . LG GRAN LYMPHS (test Rare Rare code = 7579848599) Lab Interpretation Abnormal (test code = 37670-3) [facility] (21294)2020-10-02 10:19:28 Test Item Value Reference Range Interpretation Comments NA (test code = 135 mmol/L 135-145 9119764239) K (test code = 3.4 mmol/L 3.5-5.0 L 0069648915) CL (test code = 104 mmol/L 98-108 1929289283) CO2 TOTAL (test code = 27 mmol/L 23-31 3627364390) AGAP (test code = 2-16 4807892181) BUN (test code = 4 mg/dL 7-23 L 9786771722) GLUCOSE (test code = 97 mg/dL 70-110 4503130572) CREATININE (test code = 0.45 mg/dL 0.50-1.04 L 2875272982) TOTAL BILI (test code = 1.7 mg/dL 0.1-1.1 H 6045734768) CALCIUM (test code = 8.2 mg/dL 8.6-10.6 L 2057288566) T PROTEIN (test code = 6.0 g/dL 6.3-8.2 L 6022620818) ALBUMIN (test code = 3.1 g/dL 3.5-5.0 L 8242519852) ALK PHOS (test code = 120 U/L 34-122 2767790266) ALTv (test code = 26 U/L 5-35 1742-6) AST(SGOT) (test code = 39 U/L 13-40 8922336545) eGFR (test code = mL/min/1.73m2 1517622677) SNOW (test code = SNOW) Association of [...] tests). Lab Interpretation Abnormal (test code = 74815-2) [facility] COVID [id number] 02:50:27COVID DMT InterpretationInterpretation/Recommendations: Molecular NAAT Tests for [...] COVID-19 testing the patient has had at [facility], including molecular NAAT testing (more commonly known as PCR testing and Rapid ID Now testing) and antibody testing. It does not take into account any testingthat a patient has had outside of the [facility] medical record. [facility] LABORATORY SERVICESCOVID JjcqtiwFOAT-HnQ-9 NAAT (no units) ? ? Date ? Value ? 02/13/2020 ? Not Detected ? SARS-CoV-2 Rapid ID NOW (no units) ? ? Date ? Value ? 09/29/2020 ? Not Detected ? ? ? 08/10/2019 ? Not Detected ? [facility] LABORATORY SERVICES [facility] WITH [id number] 10:31:29 Test Item Value Reference Range Interpretation [...] (test code = 52.3 fL 39.0-49.9 H 80333-5) RDW-CV (test code = 18.4 % 12.0-15.5 H 788-0) PLT (test code = See_Comment LL [Automated 777-3) message] The sy stem which generated this result transmitted reference range : 166 - 358 10*3/ ?L. The reference r davi was not used to interpret this result as normal/abnormal . MPV (test code = 11.2 fL 9.5-12.9 79380-9) IPF % (test code = 3.9 % 1.3-7.7 Platelet count 6280274051) measured by fluorescence method. NRBC/100 WBC (test See_Comment [Automat ed code = 4576426282) message] The system which generated this result transmitted reference range : 0.0 - 10.0 /100 WBCs. The refer ence range was not u sed to interpret th is result as normal/abnormal . NRBC x10^3 (test code <0.01 See_Comment [Auto mated = 6719706481) message] The s ystem which generated this result transmitted reference range : 10*3/?L. The reference range was not used to interpret this result as normal/abnormal . GRAN MAT (NEUT) % 57.5 % (test code = 770-8) IMM GRAN % (test code 0.50 % = 1933593892) LYMPH % (test code = 20.7 % 736-9) MONO % (test code = 13.3 % 5905-5) EOS % (test code = 6.9 % 713-8) BASO % (test code = 1.1 % 706-2) GRAN MAT x10^3(ANC) 1.08 10*3/uL 1.88-7.09 L (test code = 1621363898) IMM GRAN x10^3 (test <0.03 0.00-0.06 code = 8110738472) LYMPH x10^3 (test code 0.39 10*3/uL 1.32-3.29 L = 731-0) MONO x10^3 (test code 0.25 10*3/uL 0.33-0.92 L = 742-7) EOS x10^3 (test code = 0.13 10*3/uL 0.03-0.39 711-2) BASO x10^3 (test code <0.03 0.01-0.07 = 704-7) BASO STIPPLING (test Present A code = 703-9) ELLIPTO/OVAL (test 2+ See_Comment A [Automat ed code = 75769-5) message] The system which generated this result transmitted reference range : (none). The reference range was not used to interpret this result as normal/abnormal . POLYCHROMASIA (test 2+ See_Comment [Automa josemanuel code = 48281-1) message] The system which generated this result transmitted reference range : 2+. The referen ce range was not u sed to interpret th is result as normal/abnormal . Lab Interpretation Abnormal (test code = 94966-5) [facility]. METABOLIC PANEL (55529)2020-10-01 09:19:22 Test Item Value Reference Range Interpretation Comments NA (test code = 135 mmol/L 135-145 2908405956) K (test code = 4.0 mmol/L 3.5-5.0 4148960550) CL (test code = 107 mmol/L 98-108 0256643464) CO2 TOTAL (test code = 24 mmol/L 23-31 1531131924) AGAP (test code = 2-16 4798499579) BUN (test code = 7 mg/dL 7-23 5891220020) GLUCOSE (test code = 93 mg/dL 70-110 3518372096) CREATININE (test code = 0.47 mg/dL 0.50-1.04 L 3453822523) TOTAL BILI (test code = 1.6 mg/dL 0.1-1.1 H 7334151822) CALCIUM (test code = 8.1 mg/dL 8.6-10.6 L 1157212953) T PROTEIN (test code = 5.8 g/dL 6.3-8.2 L 2230610725) ALBUMIN (test code = 2.8 g/dL 3.5-5.0 L 8221766052) ALK PHOS (test code = 106 U/L 34-122 7024805719) ALTv (test code = 23 U/L 5-35 1742-6) AST(SGOT) (test code = 39 U/L 13-40 1198812141) eGFR (test code = mL/min/1.73m2 8935312246) SNOW (test code = SNOW) Association of [...] tests). Lab Interpretation Abnormal (test code = 86605-6) [facility] HospitalYAZAN [id number] 20:47:45 Test Item Value Reference Range Interpretation Comments TROPONIN I (test 0.002 ng/mL See_Comment [Automated code = 9761154907) message] The system which generated this result [...] ? Lab Interpretation Normal (test code = 12535-7) [facility] HospitalURINE [id number] 19:11:57 Test Item Value Reference Range Interpretation Comments URINE CULTURE (test code <10,000 CFU/mL = 630-4) Gram-Positive Cocci [facility] HospitalFECAL PATHOGENS BY [id number] 18:17:03 Test Item Value Reference Range Interpretation Comments Campylobacter (jejuni, Negative Negative, coli and upsaliensis) Indeterminate, (test code = 54315-8) See comment Plesiomonas shigelloides Negative Negative, (test code = 35207-8) Indeterminate, See comment Salmonella (test code = Negative Negative, 54408-3) Indeterminate, See comment Yersinia enterocolitica Negative Negative, (test code = 61986-2) Indeterminate, See comment Vibrio (test code = Negative Negative, 74006-0) Indeterminate, See comment Vibrio cholerae (test Negative Negative, code = 86998-7) Indeterminate, See comment Enteroaggregative E. Negative Negative, coli (EAEC) (test code = Indeterminate, 51500-4) See comment Enteropathogenic E. coli Negative Negative, N/A, (EPEC) (test code = Indeterminate, 47979-1) See comment Enterotoxigenic E. coli Negative Negative, (ETEC) (test code = Indeterminate, 78945-9) See comment Shiga toxin-Producing E. Negative Negative, coli (STEC) (test code = Indeterminate, 96610-7) See comment Shigella/Enteroinvasive Negative Negative, E. coli (EIEC) (test Indeterminate, code = 16535-6) See comment Cryptosporidium (test Negative Negative, code = 28505-6) Indeterminate, See comment Cyclospora cayetanensis Negative Negative, (test code = 48050-1) Indeterminate, See comment Entamoeba histolytica Negative Negative, (test code = 62879-4) Indeterminate, See comment Giardia lamblia (test Negative Negative, code = 67936-7) Indeterminate, See comment Adenovirus F 40/41 (test Negative Negative, code = 38952-9) Indeterminate, See comment Astrovirus (test code = Negative Negative, 26101-2) Indeterminate, See comment Norovirus GI/GII (test Negative Negative, code = 41918-5) Indeterminate, See comment Rotavirus A (test code = Negative Negative, 30911-4) Indeterminate, See comment Sapovirus (test code = Negative Negative, 90098-5) Indeterminate, See comment Clostridioides Positive Negative, A (Clostridium) difficile Indeterminate, Toxin A/B (test code = See comment 94598-9) SNOW (test code = SNOW) Based on GenesantArray GI Panel package insert, the GenesantArray GI Panel contains a single multiplexed assay [...] the binary toxin gene (CDT), and the nskerb-zlqe-uyev deletion at nucleotide 117 within the gene [...] organism. Lab Interpretation (test Abnormal code = 86522-1) [facility] HospitalOCCULT (GUAIAC) [id number] 14:26:32 Test Item Value Reference Range Interpretation Comments Occult (guaiac) Blood (test code = Negative Negative 2335-8) Lab Interpretation (test code = Normal 42164-6) General acute hospital WITH [id number] 13:54:12 Test Item Value Reference Range Interpretation [...] (test code = 52.9 fL 39.0-49.9 H 06113-1) RDW-CV (test code = 18.3 % 12.0-15.5 H 788-0) PLT (test code = See_Comment LL [Automated 777-3) message] The sy stem which generated this result transmitted reference range : 166 - 358 10*3/ ?L. The reference r davi was not used to interpret this result as normal/abnormal . MPV (test code = 10.8 fL 9.5-12.9 99564-7) IPF % (test code = 4.2 % 1.3-7.7 Platelet count 7237922997) measured by fluorescence method. NRBC/100 WBC (test See_Comment [Automat ed code = 5818502017) message] The system which generated this result transmitted reference range : 0.0 - 10.0 /100 WBCs. The refer ence range was not u sed to interpret th is result as normal/abnormal . NRBC x10^3 (test code <0.01 See_Comment [Auto mated = 2129350696) message] The s ystem which generated this result transmitted reference range : 10*3/?L. The reference range was not used to interpret this result as normal/abnormal . GRAN MAT (NEUT) % 60.0 % (test code = 770-8) IMM GRAN % (test code 0.40 % = 3838217564) LYMPH % (test code = 20.6 % 736-9) MONO % (test code = 11.3 % 5905-5) EOS % (test code = 6.9 % 713-8) BASO % (test code = 0.8 % 706-2) GRAN MAT x10^3(ANC) 1.49 10*3/uL 1.88-7.09 L (test code = 3297921145) IMM GRAN x10^3 (test <0.03 0.00-0.06 code = 9770346371) LYMPH x10^3 (test code 0.51 10*3/uL 1.32-3.29 L = 731-0) MONO x10^3 (test code 0.28 10*3/uL 0.33-0.92 L = 742-7) EOS x10^3 (test code = 0.17 10*3/uL 0.03-0.39 711-2) BASO x10^3 (test code <0.03 0.01-0.07 = 704-7) Lab Interpretation Abnormal (test code = 79694-6) [facility]COMP[facility]OL[facility]EL (86421)2020-09-30 12:47:49 Test Item Value Reference Range Interpretation Comments NA (test code = 135 mmol/L 135-145 6302784277) K (test code = 4.0 mmol/L 3.5-5.0 2331634006) CL (test code = 108 mmol/L 98-108 3056214471) CO2 TOTAL (test code = 23 mmol/L 23-31 2531135301) AGAP (test code = 2-16 1298574460) BUN (test code = 8 mg/dL 7-23 6172978098) GLUCOSE (test code = 109 mg/dL 70-110 3010194417) CREATININE (test code = 0.52 mg/dL 0.50-1.04 0217160440) TOTAL BILI (test code = 1.7 mg/dL 0.1-1.1 H 6928812763) CALCIUM (test code = 8.0 mg/dL 8.6-10.6 L 8688421041) T PROTEIN (test code = 5.7 g/dL 6.3-8.2 L 0486947389) ALBUMIN (test code = 2.7 g/dL 3.5-5.0 L 7600268426) ALK PHOS (test code = 106 U/L 34-122 3041638993) ALTv (test code = 22 U/L 5-35 1742-6) AST(SGOT) (test code = 34 U/L 13-40 6113614614) eGFR (test code = mL/min/1.73m2 3032700044) SNOW (test code = SNOW) Association of [...] tests). Lab Interpretation Abnormal (test code = 95605-3) [facility] HospitalFECAL [id number] 11:49:39 Test Item Value Reference Range Interpretation Comments Fecal Leukocytes (test code = Positive Negative A 8434533482) Lab Interpretation (test code = Abnormal 40760-9) [facility] HospitalN-TERMINAL [id number] 10:20:53 Test Item Value Reference Range Interpretation Comments NT-proBNP (test code 68 pg/mL See_Comment [Autom ated = 2454779246) message] The system which generated this result transmitted reference range : <=125. The reference range was not used to interpret this result as normal/abnormal . SNOW (test code = SNOW) Biotin has been reported to cause a negative bias, interpret results relative to patient's use of biotin. Lab Interpretation Normal (test code = 69715-6) [facility] HospitalCLOSTRIDIUM DIFFICILE [id number] 05:18:16 Test Item Value Reference Range Interpretation Comments Clostridioides (Clostridium) Negative Negative difficile (test code = 81923-8) Lab Interpretation (test code = Normal 51390-5) [facility] HospitalPOOK GLUCOSE (AUTOMATED)2020-09-30 00:54:42 Test Item Value Reference Range Interpretation Comments POCT GLU (test code = 8885802885) 111 mg/dL 70-110 H Lab Interpretation (test code = Abnormal 32348-2) [facility] HospitalBASIC METABOLIC PANEL (NA, K, CL, CO2, GLUCOSE, BUN, CREATININE, CA)2020-09-29 22:08:22 Test Item Value Reference Range Interpretation Comments NA (test code = 135 mmol/L 135-145 6824396375) K (test code = 3.7 mmol/L 3.5-5.0 6841139274) CL (test code = 108 mmol/L 98-108 6317047230) CO2 TOTAL (test code = 22 mmol/L 23-31 L 2386636812) AGAP (test code = 2-16 0739201375) BUN (test code = 9 mg/dL 7-23 4676149023) GLUCOSE (test code = 104 mg/dL 70-110 9319235031) CREATININE (test code = 0.51 mg/dL 0.50-1.04 5015840890) CALCIUM (test code = 7.9 mg/dL 8.6-10.6 L 6562626580) eGFR (test code = mL/min/1.73m2 8924449762) SNOW (test code = SNOW) Association of [...] tests). Lab Interpretation Abnormal (test code = 17387-6) [facility] HospitalHEMOGLOBIN2021-06-21 21:41:20 Test Item Value Reference Range Interpretation Comments HGB (test code = 718-7) 7.4 g/dL 11.6-15.0 L Lab Interpretation (test code = Abnormal 21774-3) [facility] HospitalVITAMIN B12, [id number] 20:39:52 Test Item Value Reference Range Interpretation Comments VIT B12 (test code = 212 pg/mL 240-930 L 9798388925) SNOW (test code = SNOW) Biotin has been reported to cause a positive bias, interpret results relative to patient's use of biotin. Lab Interpretation (test Abnormal code = 61563-2) [facility] HospitalDIFF CONSULT [id number] 17:24:18 LEUKOPENIA WITH ABSOLUTE LYMPHOPENIA, REACTIVE MONOCYTES [...] 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.[facility] HospitalC-REACTIVE [id number] 17:01:56 Test Item Value Reference Range Interpretation Comments CRP (test code = 1763103272) 4.7 mg/dL <0.8 H Lab Interpretation (test code = Abnormal 69262-2) [facility] HospitalVITAMIN D, [id number] 16:43:29 Test Item Value Reference Range Interpretation Comments VIT D 25OH (test code = <13 25-80 L 45625-6) SNOW (test code = SNOW) Deficiency: <20 ng/mLInsufficiency: 20-24 ng/mLOptimal: 25-80 ng/mL Lab Interpretation (test Abnormal code = 20725-0) [facility] HospitalPROCALCITONIN2021-06-21 16:15:30 Test Item Value Reference Range Interpretation Comments Procalcitonin (test 0.08 ng/mL <0.07 H code = 6581430059) SNOW (test code = SNOW) INTERPRETATION OF [...] lung abscess/empyema. For further information please refer to:[email or web address] Lab Interpretation Abnormal (test code = 98738-8) [facility] HospitalOSMOLALITY [id number] 15:35:14 Test Item Value Reference Range Interpretation Comments OSMO U (test code = See_Comment [Automa josemanuel message] 8450000202) The system [employer] generated this result transmitted ref erence range: 50-1,100 mOsm/kg. The re ference range was not u sed to interpret this result as normal/abnor mal. Lab Interpretation (test Normal code = 79789-2) [facility] HospitalTROPONIN [id number] 14:04:56 Test Item Value Reference Range Interpretation Comments TROPONIN I (test 0.002 ng/mL See_Comment [Automated code = 2222724362) message] The system which generated this result [...] ? Lab Interpretation Normal (test code = 30645-4) [facility] HospitalCT ABDOMEN PELVIS W [id number] 13:37:17 1. ?Findings concerning for infectious or [...] the umbilical vein and superior rectalvarices. The mainportal vein is dilated measuring 1.9 cm . LYMPHATICS: No enlarged lymph nodes by CT size criteria. BONES AND SOFT TISSUES: No concerning bony lesion identified. Mild leftlateral flank and sacral edema.[facility], Radiant Results Inft User - 09/29/2020 8:38 [...] focal lesion or obstructing stones. PELVIS/BLADDER: The bladde r is underdistended limiting evaluation. Priorhysterectomy. GASTROINTESTINAL: No [...] lesion identified. Mild leftlateral flank and sacral edema.IM PRESSION1. Findings concerning for infectious or inflammatory colitis mostpronounced in the cecum, ascending colon and rectosigmoid with probableunderlying portal colopathy.2. Cirrhotic liver morphology with portal hypertension manifested bysplenomegaly, extensive portosystemic collaterals and small volume ascites.3. Nonobstructive punctate right nephrolithiasis.Preliminary Report Dictated by Resident: Lázaro Laurent MD., have reviewed this study and agree with theabove report. General acute hospital WITH [id number] 11:41:25 Test Item Value Reference Range Interpretation [...] (test code = 52.4 fL 39.0-49.9 H 75977-8) RDW-CV (test code = 18.2 % 12.0-15.5 H 788-0) PLT (test code = See_Comment LL [Automated 777-3) message] The system which generated this result transmit josemanuel reference range : 166 - 358 10*3/ ?L. The reference range was not u sed to interpret th is result as normal/abnormal . MPV (test code = Not Measure d 69413-3) IPF % (test code = 4.3 % 1.3-7.7 Platelet count 7933363361) measured by fluorescence method. NRBC/100 WBC (test See_Comment [Automat ed code = 1706674977) message] The system which generated this result transmit josemanuel reference range : 0.0 - 10.0 /100 WBCs. The reference range was not used to interpret this result as normal/abnormal . NRBC x10^3 (test code <0.01 See_Comment [Auto mated = 4588916534) message] The system which generated this result transmit josemanuel reference range : 10*3/?L. The reference range was not used to interpret this result as normal/abnormal . GRAN MAT (NEUT) % 74.4 % (test code = 770-8) IMM GRAN % (test code 0.50 % = 2314024570) LYMPH % (test code = 10.3 % 736-9) MONO % (test code = 12.3 % 5905-5) EOS % (test code = 2.0 % 713-8) BASO % (test code = 0.5 % 706-2) GRAN MAT x10^3(ANC) 3.02 10*3/uL 1.88-7.09 (test code = 9708303359) IMM GRAN x10^3 (test <0.03 0.00-0.06 code = 3553383205) LYMPH x10^3 (test 0.42 10*3/uL 1.32-3.29 L code = 731-0) MONO x10^3 (test code 0.50 10*3/uL 0.33-0.92 = 742-7) EOS x10^3 (test code 0.08 10*3/uL 0.03-0.39 = 711-2) BASO x10^3 (test code <0.03 0.01-0.07 = 704-7) PLT ESTIMATE (test Decreased Normal A code = 9317-9) SNOW (test code = SNOW) CBC smear reduced platelet Lab Interpretation Abnormal (test code = 84999-5) [facility] HospitalN-TERMINAL [id number] 11:07:24 Test Item Value Reference Range Interpretation Comments NT-proBNP (test code 79 pg/mL See_Comment [Autom ated = 5492531047) message] The system which generated this result transmitted reference range : <=125. The reference range was not used to interpret this result as normal/abnormal . SNOW (test code = SNOW) Biotin has been reported to cause a negative bias, interpret results relative to patient's use of biotin. Lab Interpretation Normal (test code = 36612-5) [facility] HospitalIRON [id number] 11:04:41 Test Item Value Reference Range Interpretation Comments IRON (test code = 6216164060) 31 ug/dL 50-160 L TIBC (test code = 3555858067) 295 ug/dL 250-410 % FE SAT (test code = 3999982523) 11 % 20-50 L Lab Interpretation (test code = Abnormal 97929-3) [facility] HospitalPROTEIN CREAT RATIO URINE [id number] 10:57:19 Test Item Value Reference Range Interpretation Comments T. PROT U (test code = 2888-6) 9 mg/dL CREAT U (test code = 4985871087) 187.5 mg/dL Protein/Creatinine Ratio Urine 0.0-2.0 (test code = 3287089445) [facility] HospitalSODIUM, URINE [id number] 10:53:21 Test Item Value Reference Range Interpretation Comments NA URINE (test code = 2294361285) 30 mmol/L [facility] HospitalSEDIMENTATION [id number] 10:33:04 Test Item Value Reference Range Interpretation Comments ESR (test code = See_Comment [Automated message] 1978042114) The system [employer] generated this result transmitted ref erence range: 0 - 20 m m/HR. The reference r davi was not used to interpret this result as normal/abnor mal. Lab Interpretation (test Normal code = 13598-2) [facility] HospitalPROTHROMBIN TIME / [id number] 09:43:39 Test Item Value Reference Range Interpretation Comments PROTIME PATIENT (test See_Comment H [Auto mated message] code = 5964-2) The system [employer] generated this result transmitted ref erence range: 12.0 - 1 4.7 Seconds. The reference range was not used to int erpret this result as normal/abnormal . INR (test code = 6301-6) Nor mal INR <1.1; Warfarin Therap eutic range 2.0 to 3. 0 or 2.5 to 3.5, dep ending upon the indica tions. Lab Interpretation (test Abnormal code = 97127-9) [facility] HospitalLactic Acid Whole [id number] 08:42:38 Test Item Value Reference Range Interpretation Comments LACTIC ACID (test code = 1.47 mmol/L 0.50-2.20 7471251209) Lab Interpretation (test code = Normal 91644-8) [facility] HospitalFERRITIN [id number] 07:31:09 Test Item Value Reference Range Interpretation Comments FERRITIN (test code = 12.2 ng/mL 11.0-264.0 3698315528) SNOW (test code = SNOW) Biotin has been reported to cause a negative bias, interpret results relative to patient's use of biotin. Lab Interpretation (test Normal code = 13624-8) [facility] HospitalTHYROID STIMULATING [id number] 07:27:08 Test Item Value Reference Range Interpretation Comments TSH (test code = See_Comment [Automated message] 8696980911) The system [employer] generated this result transmitted ref erence range: 0.45 - 4 .70 mIU/L. The refe rence range was not u sed to interpret this result as normal/abnor mal. Lab Interpretation (test Normal code = 05844-3) [facility] HospitalGLYCOSYLATED HEMOGLOBIN (A1C)2020-09-29 07:05:40 Test Item Value Reference Range Interpretation Comments HGB A1C (test code = 5.0 % 4.0-5.7 4548-4) SNOW (test code = SNOW) Reference RangesNormal: <5.7%Prediabetes: 5.7 - 6.4%Diabetes: > 6.5% Lab Interpretation (test Normal code = 74392-1) [facility] HospitalURIC [id number] 07:05:35 Test Item Value Reference Range Interpretation Comments URIC ACID (test code = 0936921393) 4.2 mg/dL 2.9-6.0 Lab Interpretation (test code = Normal 32856-7) [facility] HospitalCREATINE [id number] 07:05:30 Test Item Value Reference Range Interpretation Comments CK (test code = 3093335064) 192 U/L 33-194 Lab Interpretation (test code = Normal 08727-6) [facility] HospitalN-TERMINAL [id number] 07:05:30 Test Item Value Reference Range Interpretation Comments NT-proBNP (test code 94 pg/mL See_Comment [Autom ated = 9755762511) message] The system which generated this result transmitted reference range : <=125. The reference range was not used to interpret this result as normal/abnormal . SNOW (test code = SNOW) Biotin has been reported to cause a negative bias, interpret results relative to patient's use of biotin. Lab Interpretation Normal (test code = 55402-3) [facility] HospitalMAGNESIUM2021-06-21 07:04:24 Test Item Value Reference Range Interpretation Comments MAGNESIUM (test code = 7554528839) 1.8 mg/dL 1.7-2.4 Lab Interpretation (test code = Normal 41648-4) [facility] HospitalPHOSPHORUS2021-06-21 07:03:39 Test Item Value Reference Range Interpretation Comments PHOSPHORUS (test code = 1105637724) 2.2 mg/dL 2.5-5.0 L Lab Interpretation (test code = Abnormal 56963-4) [facility] (27993)(TOTAL CHOLESTEROL, TRIGLYCERIDES, HDL)2020-09-29 06:56:06 Test Item Value Reference Range Interpretation Comments CHOL (test code = 132 mg/dL 120-200 6394719961) HDL (test code = 41 mg/dL >50 L 9503580264) HDLC RATIO (test code = See_Comment [Au tomated message] 3440482309) The system [employer] generated this result transmit josemanuel reference range : <=4.5. The refe rence range was not u sed to interpret th is result as normal/abnormal . TRIG (test code = 73 mg/dL 30-170 2850537349) LDL CHOL (test code = 76 mg/dL See_Comment [Auto mated message] 20384-2) The system [employer] generated this result transmit josemanuel reference range : <=160. The refe rence range was not u sed to interpret th is result as normal/abnormal . VLDL (test code = 15 mg/dL 5-60 8911169544) Lab Interpretation (test Abnormal code = 47912-7) [facility] (ID NOW RAPID TESTING)2020-09-29 06:24:26 Test Item Value Reference Range Interpretation Comments SARS-CoV-2 Rapid ID NOW Not Detected Not Detected (test code = 20113-0) SNOW (test code = SNOW) ID NOW COVID-19 Assay is an isothermal nucleic acid amplification test intended for the qualitative detection of nucleic acid from SARS-CoV-2 viral RNA in nasopharyngeal (FRONT DESK ASSOCIATE) specimens. It is used under Emergency [...] indicated. Lab Interpretation Normal (test code = 65809-1) [facility] 04:43:31 Test Item Value Reference Range Interpretation Comments APPEARANCE (test code = Clear Clear 0166036280) COLOR (test code = Rosanne Yellow A 9131789494) PH (test code = 4.8-8.0 4425864971) SP GRAVITY (test code = 1.003-1.030 3695512793) GLU U QUAL (test code = Normal Normal 5685593360) BLOOD (test code = Negative Negative 7557815897) KETONES (test code = Negative Negative 5596739774) PROTEIN (test code = 30 mg/dL Negative A 2887-8) UROBILIN (test code = Normal Normal 1530039757) BILIRUBIN (test code = Negative Negative 0645423199) NITRITE (test code = Negative Negative 4898327767) LEUK RANULFO (test code = 25/uL Negative A 1530503678) RBC/HPF (test code = See_Comment [Autom ated message] 9747348390) The system [employer] generated this result transmitted ref erence range: 0 - 3 HP F. The reference range was not used to int erpret this result as normal/abnormal . WBC/HPF (test code = See_Comment [Autom ated message] 6926436021) The system [employer] generated this result transmitted ref erence range: 0 - 5 HP F. The reference range was not used to int erpret this result as normal/abnormal . BACTERIA (test code = Few Negative A 2724891849) MUCOUS (test code = Moderate Negative LPF A 8837977343) SQ EPITH (test code = HPF 4133383501) Lab Interpretation (test Abnormal code = 95271-7) [facility] HospitalCB WITH [id number] 04:39:35 Test Item Value Reference Range Interpretation [...] (test code = 51.3 fL 39.0-49.9 H 05859-6) RDW-CV (test code = 18.1 % 12.0-15.5 H 788-0) PLT (test code = See_Comment L [Automated 777-3) message] The system which generated this result transmit josemanuel reference range : 166 - 358 10*3/ ?L. The reference range was not u sed to interpret th is result as normal/abnormal . MPV (test code = 11.1 fL 9.5-12.9 13041-0) IPF % (test code = 3.7 % 1.3-7.7 Platelet count 0566653378) measured by fluorescence method. NRBC/100 WBC (test See_Comment [Automat ed code = 5357636906) message] The system which generated this result transmit josemanuel reference range : 0.0 - 10.0 /100 WBCs. The reference range was not used to interpret this result as normal/abnormal . NRBC x10^3 (test code <0.01 See_Comment [Auto mated = 6303306876) message] The system which generated this result transmit josemanuel reference range : 10*3/?L. The reference range was not used to interpret this result as normal/abnormal . GRAN MAT (NEUT) % 76.4 % (test code = 770-8) IMM GRAN % (test code 0.80 % = 8657868184) LYMPH % (test code = 9.4 % 736-9) MONO % (test code = 11.3 % 5905-5) EOS % (test code = 1.5 % 713-8) BASO % (test code = 0.6 % 706-2) GRAN MAT x10^3(ANC) 4.07 10*3/uL 1.88-7.09 (test code = 2142330474) IMM GRAN x10^3 (test 0.04 10*3/uL 0.00-0.06 code = 4791981349) LYMPH x10^3 (test 0.50 10*3/uL 1.32-3.29 L code = 731-0) MONO x10^3 (test code 0.60 10*3/uL 0.33-0.92 = 742-7) EOS x10^3 (test code 0.08 10*3/uL 0.03-0.39 = 711-2) BASO x10^3 (test code 0.03 10*3/uL 0.01-0.07 = 704-7) PLT ESTIMATE (test Decreased Normal A code = 9317-9) SNOW (test code = SNOW) Juan slide adgrees to decreased Platelet Lab Interpretation Abnormal (test code = 18020-8) [facility] HospitalCOMP. METABOLIC PANEL (45957)2020-09-29 04:25:42 Test Item Value Reference Range Interpretation Comments NA (test code = 134 mmol/L 135-145 L 4947473370) K (test code = 3.2 mmol/L 3.5-5.0 L 6206588295) CL (test code = 104 mmol/L 98-108 5995827371) CO2 TOTAL (test code = 24 mmol/L 23-31 7020194279) AGAP (test code = 2-16 2262094421) BUN (test code = 8 mg/dL 7-23 6225236727) GLUCOSE (test code = 105 mg/dL 70-110 5824651375) CREATININE (test code = 0.51 mg/dL 0.50-1.04 6139677041) TOTAL BILI (test code = 2.5 mg/dL 0.1-1.1 H 2661525910) CALCIUM (test code = 8.2 mg/dL 8.6-10.6 L 2771423076) T PROTEIN (test code = 6.3 g/dL 6.3-8.2 2757174894) ALBUMIN (test code = 3.1 g/dL 3.5-5.0 L 7795441308) ALK PHOS (test code = 136 U/L 34-122 H 9195665998) ALTv (test code = 24 U/L 5-35 1742-6) AST(SGOT) (test code = 30 U/L 13-40 9840864380) eGFR (test code = mL/min/1.73m2 5391687298) SNOW (test code = SNOW) Association of [...] tests). Lab Interpretation Abnormal (test code = 54805-3) [facility] 04:25:42 Test Item Value Reference Range Interpretation Comments LIPASE (test code = 8786375103) 102 U/L 0-220 Lab Interpretation (test code = Normal 91441-9) [facility] HospitalSARS-CoV-2 (COVID-19) RNA [Presence] in Respiratory specimen by HELENA with probe [id number] 00:49:19 Test Item Value Reference Range Interpretation Comments SARS-CoV-2 (COVID-19) RNA Not detected Not-Detected [Presence] in Respiratory specimen by HELENA with probe detection (test code = 05813-0) 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 employed in a healthcare setting (test code = 71445-5) Whether the patient has symptoms related to condition of interest (test code = 65085-3) Patient was hospitalized because of this condition (test code = 75450-9) Whether the patient was admitted to intensive care unit (ICU) for condition of interest (test code = 06699-1) Whether patient resides in a congregate care setting (test code = 86524-5) BROOKE YORS-CoV-2 (COVID-19) RNA [Presence] in Respiratory specimen by HELENA with probe [id number] 02:47:43 Test Item Value Reference Range Interpretation Comments SARS-CoV-2 (COVID-19) RNA Not detected Not-Detected [Presence] in Respiratory specimen by HELENA with probe detection (test code = 49671-0) BROOKE CHOUSARS-CoV-2 (COVID-19) RNA [Presence] in Respiratory specimen by HELENA with probe [id number] 16:32:37 Test Item Value Reference Range Interpretation Comments SARS-CoV-2 (COVID-19) RNA Not detected Not-Detected [Presence] in Respiratory specimen by HELENA with probe detection (test code = 14432-9) BROOKE CHOUSARS-CoV-2 (COVID-19) RNA [Presence] in Respiratory specimen by HELENA with probe [id number] 05:29:57 Test Item Value Reference Range Interpretation Comments SARS-CoV-2 (COVID-19) RNA Not detected Not-Detected [Presence] in Respiratory specimen by HELENA with probe detection (test code = 08705-9) [facility] KYLE WESTCT ABDOMEN PELVIS W [id number] 19:27:49 1. ?No evidence of small bowel [...] reviewed this study and agree with the abovereport.General acute hospital WITH [id number] 11:56:00 Test Item Value Reference Range Interpretation Comments WBC (test code = See_Comment L [Automated 1990-2) message] The sy stem which generated this [...] (test code = 58.0 fL 39-49.9 H 82202-9) RDW-CV (test code = 16.6 % 12-15.5 H 788-0) PLT (test code = See_Comment LL [Automated 777-3) message] The sy stem which generated this result transmitted reference range : 166 - 358 10*3/ ?L. The reference r davi was not used to interpret this result as normal/abnormal . MPV (test code = 11.0 fL 9.5-12.9 02877-8) IPF % (test code = 5.5 % 1.3-7.7 Platelet count 3509435847) measured by fluorescence method. NRBC/100 WBC (test See_Comment [Automat ed code = 5454266570) message] The system which generated this result transmitted reference range : 0.0 - 10.0 /100 WBCs. The refer ence range was not u sed to interpret th is result as normal/abnormal . NRBC x10^3 (test code <0.01 See_Comment [Auto mated = 2055628893) message] The s ystem which generated this result transmitted reference range : 10*3/?L. The reference range was not used to interpret this result as normal/abnormal . GRAN MAT (NEUT) % 57.6 % (test code = 770-8) IMM GRAN % (test code 0.00 % = 3524360786) LYMPH % (test code = 27.1 % 736-9) MONO % (test code = 11.8 % 5905-5) EOS % (test code = 3.1 % 713-8) BASO % (test code = 0.4 % 706-2) GRAN MAT x10^3(ANC) 1.47 10*3/uL 1.88-7.09 L (test code = 3618264870) IMM GRAN x10^3 (test <0.03 0-0.06 code = 5664213773) LYMPH x10^3 (test code 0.69 10*3/uL 1.32-3.29 L = 731-0) MONO x10^3 (test code 0.30 10*3/uL 0.33-0.92 L = 742-7) EOS x10^3 (test code = 0.08 10*3/uL 0.03-0.39 711-2) BASO x10^3 (test code <0.03 0.01-0.07 = 704-7) Lab Interpretation Abnormal (test code = 46477-5) [facility]. METABOLIC PANEL (47248)2019-08-11 10:42:00 Test Item Value Reference Range Interpretation Comments NA (test code = 138 mmol/L 135-145 7932475786) K (test code = 3.8 mmol/L 3.5-5 5141193513) CL (test code = 108 mmol/L 98-108 2519900491) CO2 TOTAL (test code = 24 mmol/L 23-31 7538261270) AGAP (test code = 2-16 3946014458) BUN (test code = 10 mg/dL 7-23 3695074116) GLUCOSE (test code = 108 mg/dL 70-110 9879525113) CREATININE (test code = 0.43 mg/dL 0.5-1.04 L 0206351256) TOTAL BILI (test code = 2.5 mg/dL 0.1-1.1 H 1359447044) CALCIUM (test code = 8.4 mg/dL 8.6-10.6 L 7338073539) T PROTEIN (test code = 6.1 g/dL 6.3-8.2 L 3492079186) ALBUMIN (test code = 3.1 g/dL 3.5-5 L 2664390756) ALK PHOS (test code = 102 U/L 34-122 3107963683) ALTv (test code = 52 U/L 5-35 H 1742-6) AST(SGOT) (test code = 63 U/L 13-40 H 9393427352) eGFR Calculation mL/min/1.73m2 (Non-) (test code = 4750142619) eGFR Calculation mL/min/1.73m2 () (test code = 2285321515) SNOW (test code = SNOW) Association of [...] tests). Lab Interpretation Abnormal (test code = 98688-8) [facility] HospitalXR SMALL BOWEL [id number] 02:08:11 1. ?No bowel obstruction. No fluoroscopic images or fluoroscopic time. RL 6200 HISTORY: ?Abdominal pain COMPARISON: ?None FINDINGS: There is a nonobstructive bowel gas pattern. Contrast is seen throughoutthe entire small bowel and colon. No dilated loops of bowel demonstrated. [facility], Radiant Results Inft User - 08/10/2019 9:09 PM CDTHISTORY: Abdominal painCOMPARISON: NoneFINDINGS:There is a nonobstructive bowel gas pattern. Contrast is seen throughoutthe entire small bowel and colon. No dilated loops of bowel demonstrated.IMPRESSION1. No bowel obstruction.No fluoroscopic images or fluoroscopic time.RL 6200 [facility]SED[facility] [id number] 16:19:00 Test Item Value Reference Range Interpretation Comments ESR (test code = See_Comment [Automated message] 2853670478) The system [employer] generated this result transmitted ref erence range: 0 - 20 m m/HR. The reference r davi was not used to interpret this result as normal/abnor mal. Lab Interpretation (test Normal code = 57146-5) [facility] HospitalAbdominal 1 View - To confirm [...] reviewed this study and agree with the abovereport.General acute hospital WITH [id number] 13:48:00 Test Item Value Reference Range Interpretation [...] (test code = 58.4 fL 39-49.9 H 34415-7) RDW-CV (test code = 16.7 % 12-15.5 H 788-0) PLT (test code = See_Comment LL [Automated 777-3) message] The system which generated this result transmit josemanuel reference range : 166 - 358 10*3/ ?L. The reference range was not u sed to interpret th is result as normal/abnormal . MPV (test code = 10.5 fL 9.5-12.9 58002-8) IPF % (test code = 3.0 % 1.3-7.7 Platelet count 3829709904) measured by fluorescence method. NRBC/100 WBC (test See_Comment [Automat ed code = 1430969664) message] The system which generated this result transmit josemanuel reference range : 0.0 - 10.0 /100 WBCs. The reference range was not used to interpret this result as normal/abnormal . NRBC x10^3 (test code <0.01 See_Comment [Auto mated = 8755656929) message] The system which generated this result transmit josemanuel reference range : 10*3/?L. The reference range was not used to interpret this result as normal/abnormal . GRAN MAT (NEUT) % 57.1 % (test code = 770-8) IMM GRAN % (test code 0.40 % = 3419463823) LYMPH % (test code = 28.1 % 736-9) MONO % (test code = 10.4 % 5905-5) EOS % (test code = 3.6 % 713-8) BASO % (test code = 0.4 % 706-2) GRAN MAT x10^3(ANC) 1.42 10*3/uL 1.88-7.09 L (test code = 0765097097) IMM GRAN x10^3 (test <0.03 0-0.06 code = 0382732243) LYMPH x10^3 (test 0.70 10*3/uL 1.32-3.29 L code = 731-0) MONO x10^3 (test code 0.26 10*3/uL 0.33-0.92 L = 742-7) EOS x10^3 (test code 0.09 10*3/uL 0.03-0.39 = 711-2) BASO x10^3 (test code <0.03 0.01-0.07 = 704-7) PLT ESTIMATE (test Critically Normal AA code = 9317-9) Decreased Lab Interpretation Abnormal (test code = 18636-3) [facility] HospitalGLYCOSYLATED HEMOGLOBIN (A1C)2019-08-10 13:13:00 Test Item [...] Indicated Lab Interpretation Normal (test code = 97960-8) [facility] HospitalTHYROID STIMULATING [id number] 13:05:00 Test Item Value Reference Range Interpretation Comments TSH (test code = See_Comment [Automated message] 6515278710) The system [employer] generated this result transmitted ref erence range: 0.45 - 4 .70 mIU/L. The refe rence range was not u sed to interpret this result as normal/abnor mal. Lab Interpretation (test Normal code = 55538-1) [facility] HospitalPREGNANCY TEST, [id number] 13:04:00 Test Item Value Reference Range Interpretation Comments PREG SERUM (test code Negative = 5591743117) SNOW (test code = SNOW) Less than 10 IU/L. ?If low titer or ectopic is suspected, resubmit specimen in 48-72 hours. [facility] HospitalLIPID PANEL (06083)(TOTAL CHOLESTEROL, TRIGLYCERIDES, HDL)2019-08-10 12:36:00 Test Item Value Reference Range Interpretation Comments CHOL (test code = 158 mg/dL 120-200 0800289198) HDL (test code = 47 mg/dL >50 L 6037362620) HDLC RATIO (test code = See_Comment [Au tomated message] 4621405009) The system [employer] generated this result transmit josemanuel reference range : <=4.5. The refe rence range was not u sed to interpret th is result as normal/abnormal . TRIG (test code = 51 mg/dL 30-170 5776626125) LDL CHOL (test code = 101 mg/dL See_Comment [Auto mated message] 04297-8) The system [employer] generated this result transmit josemanuel reference range : <=160. The refe rence range was not u sed to interpret th is result as normal/abnormal . VLDL (test code = 10 mg/dL 5-60 0497368706) Lab Interpretation (test Abnormal code = 69720-5) [facility] HospitalCOMP. METABOLIC PANEL (63171)2019-08-10 12:35:00 Test Item Value Reference Range Interpretation Comments NA (test code = 139 mmol/L 135-145 6625480859) K (test code = 3.9 mmol/L 3.5-5 8965056622) CL (test code = 109 mmol/L 98-108 H 2483745838) CO2 TOTAL (test code = 25 mmol/L 23-31 0088205975) AGAP (test code = 2-16 4379420658) BUN (test code = 15 mg/dL 7-23 3362571490) GLUCOSE (test code = 218 mg/dL 70-110 H 0635237106) CREATININE (test code = 0.40 mg/dL 0.5-1.04 L 5583527903) TOTAL BILI (test code = 2.0 mg/dL 0.1-1.1 H 9311912705) CALCIUM (test code = 8.5 mg/dL 8.6-10.6 L 6495398332) T PROTEIN (test code = 6.2 g/dL 6.3-8.2 L 9004774035) ALBUMIN (test code = 3.1 g/dL 3.5-5 L 4801056585) ALK PHOS (test code = 99 U/L 34-122 5771783907) ALTv (test code = 42 U/L 5-35 H 1742-6) AST(SGOT) (test code = 49 U/L 13-40 H 2927911406) eGFR Calculation mL/min/1.73m2 (Non-) (test code = 1929691921) eGFR Calculation mL/min/1.73m2 () (test code = 2333853089) SNOW (test code = SNOW) Association of [...] tests). Lab Interpretation Abnormal (test code = 37273-2) [facility] HospitalMAGNESIUM2020-05-01 12:35:00 Test Item Value Reference Range Interpretation Comments MAGNESIUM (test code = 5151991429) 1.6 mg/dL 1.7-2.4 L Lab Interpretation (test code = Abnormal 98002-7) [facility] HospitalPHOSPHORUS2020-05-01 12:35:00 Test Item Value Reference Range Interpretation Comments PHOSPHORUS (test code = 3885868458) 3.6 mg/dL 2.5-5 Lab Interpretation (test code = Normal 75980-7) [facility] HospitalCREATINE [id number] 12:35:00 Test Item Value Reference Range Interpretation Comments CK (test code = 6620517532) 123 U/L 33-194 Lab Interpretation (test code = Normal 97876-8) [facility] HospitalLIPASE2020-05-01 12:35:00 Test Item Value Reference Range Interpretation Comments LIPASE (test code = 6008099359) 141 U/L 0-220 Lab Interpretation (test code = Normal 22708-6) [facility] HospitalAMYLASE2020-05-01 12:34:00 Test Item Value Reference Range Interpretation Comments LIN (test code = 5394779563) 73 U/L 35-110 Lab Interpretation (test code = Normal 59861-5) [facility] HospitalPROTHROMBIN TIME / [id number] 12:07:00 Test Item Value Reference Range Interpretation Comments PROTIME PATIENT (test See_Comment H [Auto mated message] code = 5964-2) The system [employer] generated this result transmitted ref erence range: 12.0 - 1 4.7 Seconds. The reference range was not used to int erpret this result as normal/abnormal . INR (test code = 6301-6) Nor mal INR <1.1; Warfarin Therap eutic range 2.0 to 3. 0 or 2.5 to 3.5, dep ending upon the indica tions. Lab Interpretation (test Abnormal code = 10337-3) [facility] HospitalCORONAVIRUS COVID-19 [id number] 10:18:00 Test Item Value Reference Range Interpretation Comments SARS-CoV-2 (test code = Not Detected Not Detected 48965-7) SNOW (test code = SNOW) ID NOW COVID-19 Assay is an isothermal nucleic acid amplification test intended for the qualitative detection of nucleic acid from SARS-CoV-2 viral RNA in nasopharyngeal (FRONT DESK ASSOCIATE) specimens. It is used under Emergency [...] indicated. Lab Interpretation Normal (test code = 12564-1) [facility] HospitalRAD, CHEST, 1 VIEW, NON [id number] 07:50:00Reason for exam:->SOBShould this be performed at the bedside?->Yes FINAL REPORT CLINICAL HISTORY: SOB TECHNIQUE: 1 view of the chest. COMPARISON: None IMPRESSION: There is pulmonary vascular congestion with prominent lung markings bilaterally. Subpulmonic pleural effusions cannot be excluded. The cardiomediastinal silhouette is magnified by technique. Signed: Franky Hoyt MDReport Verified Date/Time: 10/03/2018 07:50:47 Reading Location: [facility] Radiology Reading Room [id number] 07:37:00 Test Item Value Reference Range Interpretation Comments MAGNESIUM (BEAKER) (test code = 1.6 mg/dL 1.6-2.6 627) BASIC METABOLIC [id number] 07:37:00 Test Item Value Reference Range Interpretation [...] DIALYSIS PATIEN TS. Specimen slightly ictericHEPATIC FUNCTION [id number] 07:37:00 Test Item Value Reference Range Interpretation [...] 35 U/L 6-55 347) Specimen slightly ictericPROTHROMBIN TIME/[id number] 06:25:00 Test Item Value Reference Range Interpretation [...] mechanical heart valves.CBC W/PLT COUNT & AUTO [id number] 06:16:00 Test Item Value Reference Range Interpretation [...] = 3438) Received comment: User comments: Slide comments:[id number] 05:58:00 Test Item Value Reference Range Interpretation Comments MAGNESIUM (BEAKER) (test code = 1.6 mg/dL 1.6-2.6 627) BASIC METABOLIC [id number] 05:58:00 Test Item Value Reference Range Interpretation [...] DIALYSIS PATIEN TS. Specimen slightly ictericHEPATIC FUNCTION [id number] 05:58:00 Test Item Value Reference Range Interpretation [...] 39 U/L 6-55 347) Specimen slightly ictericPROTHROMBIN TIME/[id number] 05:26:00 Test Item Value Reference Range Interpretation [...] mechanical heart valves.CBC W/PLT COUNT & AUTO [id number] 05:20:00 Test Item Value Reference Range Interpretation [...] WBC 0-0 (test code = 413) VITAMIN [id number] 06:57:00 Test Item Value Reference Range Interpretation Comments VITAMIN B12 (BEAKER) (test code = 178 pg/mL 213-816 L 774) [id number] 06:57:00 Test Item Value Reference Range Interpretation Comments FERRITIN (BEAKER) (test code = 361) 21 ng/mL 5-275 FOLATE, [id number] 06:57:00 Test Item Value Reference Range Interpretation [...] 28 % 20-55 (test code = 2590) [id number] 05:59:00 Test Item Value Reference Range Interpretation Comments MAGNESIUM (BEAKER) (test code = 1.7 mg/dL 1.6-2.6 627) BASIC METABOLIC [id number] 05:59:00 Test Item Value Reference Range Interpretation [...] FOR DIALYSIS PATIEN TS. Specimen slightly ictericLIPID [id number] 05:59:00 Test Item Value Reference Range Interpretation [...] Very High >=190 Specimen slightly ictericHEPATIC FUNCTION [id number] 05:59:00 Test Item Value Reference Range Interpretation [...] = 41 U/L 6-55 347) Specimen slightly [id number] 05:59:00 Test Item Value Reference Range Interpretation Comments LIPASE (BEAKER) (test code = 749) 35 U/L 8-78 Specimen slightly ictericPROTHROMBIN TIME/[id number] 05:58:00 Test Item Value Reference Range Interpretation [...] mechanical heart valves.CBC W/PLT COUNT & AUTO [id number] 05:37:00 Test Item Value Reference Range Interpretation [...] (test code = 416) BASOPHILS ABSOLUTE COUNT ([facility]) 0.02 K/ L 0.01-0.08 (test code = 417) IMMATURE GRANULOCYTES-RELATIVE 0 % 0-1 PERCENT ([facility]) (test code = 2801) POCT-HEMOGLOBIN [id number] 06:12:00 Test Item Value Reference Range Interpretation Comments POC-HEMOGLOBIN METER 8.6 g/dL 12.0-15.0 L TESTED AT [facility] 6720 ([facility]) (test code = [place] [address] 1539)"
[2022-09-01] MEDS ORDERED: ONDANSETRON 4 MG/2 ML VIAL ONE (10:53)
[2022-09-01 11:28] LABS: Protime INR 1.32
[2022-09-01 11:42] LABS: Absolute Lymphocytes (CBC) 0.5 K/uL (0.7-4.9); Albumin 2.7 g/dL (3.4-5.0); Bilirubin Total 2.8 mg/dL (0.2-1.0); Hematocrit 31.4 % (36.0-45.0); Lymphocytes % 21.6 % (15.3-44.8); MCV 92.4 fL (80-100); MPV 7.9 fL (7.6-11.3); Potassium 3.1 mEq/L (3.5-5.1); Protein, Total 5.9 g/dL (6.4-8.2)
[2022-09-01 11:56] LABS: Anisocytosis 1+; Blood Morphology Comment NOTED (NOT SEEN); Platelet Estimate DECR; White Blood Cell Scan OK (OK)
--- NOTE | 2022-09-01 12:15 | RAD REPORT ---
EXAM DESCRIPTION: CT - Abdomen Pelvis W Contrast - 09/01/2022 11:54 am CLINICAL HISTORY: Abd pain;Abdominal distention COMPARISON: Abdomen Pelvis W Contrast dated 03/15/2022; Abdomen Pelvis W Contrast dated 12/09/2021 ; Abdomen Pelvis W Contrast dated 11/17/2021; Abdomen Pelvis W Contrast dated 01/26/2021; Thorax Wo Con dated 06/06/2022 TECHNIQUE: Thin cut axial CT imaging of the abdomen and pelvis was performed following intravenous a dministration of 95 mL Isovue 300. Multiplanar reformats were generated and reviewed. All CT scans are performed using dose optimization technique as appropriate and may include automated exposure control or mA/KV adjustment according to patient size. FINDINGS: No suspicious findings in the lung bases. Nodular contour of the liver again suggesting cirrhotic changes. Splenomegaly. Mild varicosities in t he region of the splenic hilum extending to the gastric fundus, with recanalization of the umbilical vein. 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 Pancreas and adre nal glands show no suspicious findings. Status post cholecystectomy. Since of intra or extrahepatic b iliary ductal dilation. Symmetric renal function is seen with no hydronephrosis or suspicious renal mass. Nonspecific apparent wall thickening along the cecal bulb and ascending colon, could relate to ongoin g portal hypertension. No dilated bowel loops or other bowel wall thickening. No free air, or inflamm atory stranding. Moderate free ascites. No hernia, mass or bulky lymphadenopathy. The urinary bladder is without significant finding. No suspicious bony findings. IMPRESSION: Stigmata of cirrhosis and portal hypertension. Moderate free ascites. Nonspecific apparent wall thickening of the cecal bulb and ascending colon, can be seen in the settin g of portal hypertension, however may reflect focal or segmental colitis. Other stable findings as above.
--- NOTE | 2022-09-01 12:56 | ER ---
Nurse's Notes [facility] Name: Zenaida Goss Age: 62 yrs Sex: Female : 1960 Arrival Date: 09/01/2022 Time: 10:10 Bed 13 Private MD: Diagnosis: Left sided colitis;Other ascites Presentation: 09/01 10:27 Chief complaint: Patient states: abd pain radiating to back X 1 week, has been having iw BM everyday except today, hx of pancreatitis. Coronavirus screen: At this time, the client does not indicate any symptoms associated with coronavirus-19. Ebola Screen: Patient negative for fever greater than or equal to 101.5 degrees Fahrenheit, and additional compatible Ebola Virus Disease symptoms Patient denies exposure to infectious person. Patient denies travel to an Ebola-affected area in the 21 days before illness onset. No symptoms or risks identified at this time. Initial Sepsis Screen: Does the patient meet any 2 criteria? No. Patient's initial sepsis screen is negative. Does the patient have a suspected source of infection? No. Patient's initial sepsis screen is negative. Risk Assessment: Do you want to hurt yourself or someone else? Patient reports no desire to harm self or others. Onset of symptoms was August 25, 2022. 10:27 Method Of Arrival: Ambulatory iw 10:27 Acuity: TANK 3 iw Triage Assessment: 11:00 General: Appears in no apparent distress. comfortable, Behavior is calm, cooperative, nj1 appropriate for age. 11:00 Pain: Complains of pain in abdomen Pain currently is 10 out of 10 on a pain scale. nj1 Neuro: Level of Consciousness is awake, alert, obeys commands, Oriented to person, place, time, situation. Cardiovascular: Patient's skin is warm and dry. Respiratory: Airway is patent Respiratory effort is even, unlabored. GI: Reports upper abdominal pain, nausea. Historical: - Allergies: 10:29 Demerol; iw 10:29 Dilaudid; iw 10:29 Morphine (Anaphylaxis); iw 10:29 Phenergan; sloan in IV; iw - Home Meds: 10:29 Creon Oral [Active]; Lactulose Oral [Active]; Lasix Oral [Active]; Protonix Oral iw [Active]; rifaximin Oral [Active]; Spironolactone Oral [Active]; - PMHx: 10:29 Anemia; breast cancer; Cirrhosis; ESOPHAGEAL VARACIES; fatty liver; Heart Murmur; iw Pancreatitis; polyp; - PSHx: 10:29 Appendectomy; Cholecystectomy; Lumpectomy of breast; right knee surgery; right iw lymphectomy; Total abdominal hysterectomy; - Immunization history:: Adult Immunizations up to date, . - Social history:: Smoking status: Patient denies any tobacco usage or history of. Screenin:14 [facility] ED Fall Risk Assessment (Adult) History of falling in the last 3 months, nj1 including since admission No falls in past 3 months (0 pts) Confusion or Disorientation No (0 pts) Intoxicated or Sedated No (0 pts) Impaired Gait No (0 pts) Mobility Assist Device Used No (0 pt) Altered Elimination No (0 pt) Score/Fall Risk Level 0 - 2 = Low Risk Oriented to surroundings, Maintained a safe environment, Hourly rounding (assess needs \T\ fall precautionary measures) done. Abuse screen: Denies threats or abuse. Denies injuries from another. Nutritional screening: No deficits noted. Tuberculosis screening: No symptoms or risk factors identified. Assessment: 11:51 Reassessment: Not in room at this time. nj1 13:00 Reassessment: Patient appears in no apparent distress at this time. Patient and/or vt1 family updated on plan of care and expected duration. Pain level reassessed. Patient is alert, oriented x 3, equal unlabored respirations, skin warm/dry/pink. Pain: Complains of pain in abdomen Pain currently is 10 out of 10 on a pain scale. 13:00 GI: Patient currently denies nausea. nj1 13:50 Reassessment: Patient appears in no apparent distress at this time. Patient and/or nj1 family updated on plan of care and expected duration. Pain level reassessed. Patient is alert, oriented x 3, equal unlabored respirations, skin warm/dry/pink. Pain: Complains of pain in abdomen Pain currently is 10 out of 10 on a pain scale. 13:50 GI: Patient currently denies nausea. nj Vital Signs: 10:27 BP 107 / 53; Pulse 80; Resp 16; Temp 98.6; Pulse Ox 100% on R/A; Weight 104.33 kg; iw Height 5 ft. 4 in. ; Pain 10/10; 10:50 BP 105 / 46; Pulse 75; Resp 17; Temp 98.3; Pulse Ox 98% on R/A; rs5 11:36 BP 115 / 79; Pulse 73; Resp 18; Pulse Ox 99% on R/A; nj1 13:20 BP 115 / 65; Pulse 74; Resp 18; Pulse Ox 99% on R/A; Pain 10/10; nj1 10:27 Body Mass Index 39.48 (104.33 kg, 162.56 cm) iw 10:27 Pain Scale: Adult iw 13:20 Pain Scale: Adult nj1 ED Course: 10:14 Patient arrived in ED. rg4 10:14 Oleg Granados MD is Attending Physician. bs3 10:29 Triage completed. iw 10:30 Arm band placed on. iw 10:42 Rhoda Navarro, RN is Primary Nurse. nj1 11:00 Patient has correct armband on for positive identification. Bed in low position. Call nj1 light in reach. Side rails up X 1. 11:00 Inserted saline lock: 20 gauge in left antecubital area, using aseptic technique. nj1 ,using aseptic technique. US guided. Catheter tip well visualized within vasculature during placement. Blood collected. 11:56 CT Abd/Pelvis - IV Contrast Only In Process Unspecified. EDMS 13:38 No provider procedures requiring assistance completed. nj1 13:53 IV discontinued, intact, bleeding controlled. nj1 Administered Medications: 11:02 Drug: Ondansetron IVP 4 mg Route: IVP; Site: left antecubital; nj1 13:00 Follow up: Response: Nausea is decreased nj1 13:23 Drug: Ketorolac IVP 15 mg Route: IVP; Site: left antecubital; nj1 13:54 Follow up: Response: No adverse reaction nj1 13:24 Drug: Potassium Chloride PO Liquid 40 mEq {Note: 40 mEq given to patient in pill form, nj1 ok by provider..} Route: PO; 13:54 Follow up: Response: No adverse reaction nj1 Medication: 13:38 VIS not applicable for this client. nj1 Outcome: 12:56 Discharge ordered by . bs3 13:53 Discharged to home ambulatory. nj1 13:53 Condition: stable 13:53 Discharge instructions given to patient, Instructed on discharge instructions, follow up and referral plans. medication usage, Demonstrated understanding of instructions, follow-up care, medications, Prescriptions given X 2. 13:54 Patient left the ED. nj1 Signatures: Dispatcher [employer] EDLe Hyde, RN RN iw Di Gao rg4 Oleg Granados MD MD bs3 Reynaldo Riley rs5 Rhoda Navarro RN RN nj1 Corrections: (The following items were deleted from the chart) 10:30 10:29 Allergies: Zofran; iw iw 13:40 12:23 Ketorolac IVP 15 mg IVP in left antecubital nj1 nj1 13:42 13:10 Reassessment: Patient appears in no apparent distress at this time. Patient nj1 and/or family updated on plan of care and expected duration. Pain level reassessed. Patient is alert, oriented x 3, equal unlabored respirations, skin warm/dry/pink. nj1 13:42 13:10 Pain: Complains of pain in abdomen Pain currently is 10 out of 10 on a pain nj1 scale. nj1
--- NOTE | 2022-09-01 12:57 | EDPHYS ---
Physician Documentation [facility] Name: Zenaida Goss Age: 62 yrs Sex: Female : 1960 Arrival Date: 09/01/2022 Time: 10:10 Bed 13 Private MD: ED Physician Oleg Granados HPI: 09/01 10:52 This 62 yrs old Female presents to ER via Ambulatory with complaints of bs3 Abdominal Pain, Back Pain. 10:52 The patient presents with pain that is chronic, with no known mechanism of injury. The bs3 symptoms are located in the low back. Onset: The symptoms/episode began/occurred last week. The pain does not radiate. Associated signs and symptoms: Pertinent positives: abdominal pain, nausea. The problem was sustained without known cause. 62-year-old female history of anemia, breast cancer, esophageal varices, cirrhosis secondary to fatty liver disease status post Renetta status post appendectomy presents with abdominal distention back pain and abdominal pain that started approximately 1 week ago she talked to her GI doctor at [facility] who advised her to come to the hospital and evaluate her for pancreatitis she denies any chest pain or shortness of breath denies any lower abdominal pain any urinary symptoms she does note that she may be constipated but is passing gas. Historical: - Allergies: 10:29 Demerol; iw 10:29 Dilaudid; iw 10:29 Morphine (Anaphylaxis); iw 10:29 Phenergan; sloan in IV; iw - Home Meds: 10:29 Creon Oral [Active]; Lactulose Oral [Active]; Lasix Oral [Active]; Protonix Oral iw [Active]; rifaximin Oral [Active]; Spironolactone Oral [Active]; - PMHx: 10:29 Anemia; breast cancer; Cirrhosis; ESOPHAGEAL VARACIES; fatty liver; Heart Murmur; iw Pancreatitis; polyp; - PSHx: 10:29 Appendectomy; Cholecystectomy; Lumpectomy of breast; right knee surgery; right iw lymphectomy; Total abdominal hysterectomy; - Immunization history:: Adult Immunizations up to date, . - Social history:: Smoking status: Patient denies any tobacco usage or history of. ROS: 10:54 Constitutional: Negative for fever, chills bs3 10:54 All other systems are negative. Exam: 10:54 Constitutional: This is a well developed, well nourished patient who is awake, alert, bs3 and in no acute distress. Head/Face: Normocephalic, atraumatic. Eyes: Pupils equal round and reactive to light, extra-ocular motions intact. Lids and lashes normal. ENT: mmm, no posterior phyarngeal erythema Neck: Trachea midline, no thyromegaly, no neck stiffness Chest/axilla: Normal chest wall appearance and motion. Nontender with no deformity. No lesions are appreciated. Cardiovascular: Regular rate and rhythm with a normal S1 and S2. symmetric pulses in upper extremities 10:54 Normal sinus rhythm at 80 right bundle branch block QTc 551 as interpreted by myself 10:54 Respiratory: Lungs have equal breath sounds bilaterally, clear to auscultation, no bs3 respiratory distress Abdomen/GI: Abdominal distention, soft no focal tenderness no peritoneal signs Skin: Warm, dry with normal turgor. Normal color with no rashes, no lesions, and no evidence of cellulitis. MS/ Extremity: Pulses equal, no cyanosis. Neurovascular intact. Full, normal range of motion. Neuro: Awake and alert, GCS 15, oriented to person, place, time, and situation. Cranial nerves II-XII grossly intact. Motor strength 5/5 in all extremities. Sensory grossly intact. Psych: Awake, alert, with orientation to person, place and time. Behavior, mood, and affect are within normal limits. Vital Signs: 10:27 BP 107 / 53; Pulse 80; Resp 16; Temp 98.6; Pulse Ox 100% on R/A; Weight 104.33 kg; iw Height 5 ft. 4 in. ; Pain 10/10; 10:50 BP 105 / 46; Pulse 75; Resp 17; Temp 98.3; Pulse Ox 98% on R/A; rs5 11:36 BP 115 / 79; Pulse 73; Resp 18; Pulse Ox 99% on R/A; nj1 13:20 BP 115 / 65; Pulse 74; Resp 18; Pulse Ox 99% on R/A; Pain 10/10; nj1 10:27 Body Mass Index 39.48 (104.33 kg, 162.56 cm) iw 10:27 Pain Scale: Adult iw 13:20 Pain Scale: Adult nj1 MDM: 10:14 Patient medically screened. bs3 10:54 Data reviewed: vital signs, nurses notes. ED course: Will evaluate for obstruction will bs3 evaluate for pancreatitis, possible decompensated cirrhosis we will do serial exams and reassess. 12:55 ED course: CT as interpreted by myself small ascites I discussed the case with her bs3 primary general partner who will increase her diuretics he agrees that she would not benefit from drainage at this point in time he did recommend antibiotics. 09/01 10:22 Order name: CBC with Diff; Complete Time: 12:51 bs3 09/01 10:22 Order name: CMP; Complete Time: 11:48 bs3 09/01 10:22 Order name: Lipase; Complete Time: 11:48 bs3 09/01 10:22 Order name: PT-INR; Complete Time: 11:38 bs3 09/01 11:57 Order name: CBC Smear Scan; Complete Time: 12:51 EDMS 09/01 10:22 Order name: CT Abd/Pelvis - IV Contrast Only; Complete Time: 12:39 bs3 09/01 10:22 Order name: IV Saline Lock; Complete Time: 11:11 bs3 09/01 10:22 Order name: Labs collected and sent; Complete Time: 11:11 bs3 09/01 10:22 Order name: EKG - Nurse/Tech; Complete Time: 10:46 bs3 Administered Medications: 11:02 Drug: Ondansetron IVP 4 mg Route: IVP; Site: left antecubital; nj1 13:00 Follow up: Response: Nausea is decreased nj1 13:23 Drug: Ketorolac IVP 15 mg Route: IVP; Site: left antecubital; nj1 13:54 Follow up: Response: No adverse reaction nj1 13:24 Drug: Potassium Chloride PO Liquid 40 mEq {Note: 40 mEq given to patient in pill form, nj1 ok by provider..} Route: PO; 13:54 Follow up: Response: No adverse reaction nj1 Disposition Summary: 09/01/22 12:56 Discharge Ordered Location: Home bs3 Problem: new bs3 Symptoms: have improved bs3 Condition: Stable bs3 Diagnosis - Left sided colitis bs3 - Other ascites bs3 Followup: bs3 - With: Private Physician - When: 1 week - Reason: Re-evaluation by your physician Discharge Instructions: - Discharge Summary Sheet bs3 - Ascites bs3 - Colitis bs3 Forms: - Medication Reconciliation Form bs3 - Thank You Letter bs3 - Antibiotic Education bs3 - Prescription Opioid Use bs3 Prescriptions: - Flagyl 500 mg Oral Tablet - take 1 tablet by ORAL route every 12 hours for 7 days; 14 tablet; Refills: 0, bs3 Product Selection Permitted - Cipro 500 mg Oral Tablet - take 1 tablet by ORAL route every 12 hours for 7 days; 14 tablet; Refills: 0, bs3 Product Selection Permitted Signatures: Dispatcher [employer] Le Sanchez RN RN iw Oleg Granados MD MD bs3 Rhoda Navarro RN RN nj1 Corrections: (The following items were deleted from the chart) 10:30 10:29 Allergies: Zofran; charmaine montano
[2022-09-01] MEDS ORDERED: KETOROLAC 30 MG/ML INJ ONE (13:26)
[2022-09-01] MEDS ORDERED: POTASSIUM CL SA 10 MEQ TAB PO ONE (13:28)
[2022-09-01 14:16] VITALS: TEMP 98.3
[2022-09-01 14:18] VITALS: O2SAT 99
[2022-09-01 14:19] VITALS: BP 115/65
--- NOTE | 2022-09-02 12:33 | EKG ---
Test Date: 2022-09-01 Test Time: 10:38:55 [employer]: ADALBERTO MEASUREMENT RESULTS: Intervals: Rate: 80 IN: 156 QRSD: 144 QT: 478 QTc: 551 [place]: P: 22 IN: 156 QRS: 77 T: 5 INTERPRETIVE STATEMENTS: Normal sinus rhythm Right bundle branch block T wave abnormality, consider inferior ischemia Abnormal ECG Compared to ECG 07/04/2022 13:23:52 T-wave abnormality now present Possible ischemia now present Electronically Signed On 09-02-22 12:31:51 CDT by Miguel Crenshaw
== END 2022-09-01 13:54 | disposition home or self-care (01) ==
LOC: ER 10:10
DX: K51.50 Left sided colitis without complications (principal); R18.8 Other ascites; K74.60 Unspecified cirrhosis of liver; K76.0 Fatty (change of) liver, not elsewhere classified; K85.90 Acute pancreatitis without necrosis or infection, unspecified; Z85.3 Personal history of malignant neoplasm of breast; Z88.5 Allergy status to narcotic agent; Z88.8 Allergy status to other drugs, medicaments and biological substances
CPT/HCPCS: 85025; 36415; 85610; 83690; 80053; 74177; Q9967; J2405; 93005

== ENCOUNTER 2022-10-06 12:36 | Emergency (ER) | payer OTHER ==
--- OUTSIDE RECORDS SUMMARY | 2022-10-06 12:56 | XMS REPORT | Continuity of Care Document ---
:1960 Author Organization [facility] t Address [address] [place] [address] Care Team Providers Name Role Phone Madhu Miranda Primary Care Physician Unavailable Annalise Souza Attending Clinician Unavailable Madhu Miranda Attending Clinician Unavailable Alex REYES, Rikki Donaldson Attending Clinician Unavailable Daniel Saucedo DO Attending Clinician Bebeto Ward MD Attending Clinician Jeremy Sandoval MD Attending Clinician [phone] Mayda Aleman MD, Sharita Attending Clinician [phone] Radiology Attending Clinician Unavailable RADIOLOGY Attending Clinician Unavailable Pob, Adc Lab Main Attending Clinician Unavailable Jf HENSLEY, Handy Attending Clinician Sukhdev SOTO Attending Clinician Unavailable Charles HUERTA, Sukhdev Mary Attending Clinician Jose HENSLEY, Willian Snowden Attending Clinician Nancy HENSLYE, Nakia Attending Clinician Thomas HENSLEY, Elias Attending Clinician Ken HENSLEY, Kandice Attending Clinician Greg HENSLEY, Ariel Sparks Attending Clinician Tiffanie Levi MA Attending Clinician Unavailable Adama Duarte Attending Clinician Corey HENSLEY, Jose Raul Lucero Attending Clinician Ramsey SOMMER, Krystyna Gonzalez Attending Clinician [phone] Bala Macias Attending Clinician Unavailable Alvaro [facility], Aramis Attending Clinician Unavailable Laura Aguilera Attending Clinician Unavailable Riley HENSLEY, Radha Attending Clinician Carolin Sanches MD Attending Clinician Isaura HENSLEY, Fer Barajas Attending Clinician [phone] Salena SOMMER, Cecilia Attending Clinician Juju Payne RN Attending Clinician Unavailable Michael HENSLEY, Oneil Attending Clinician Maite HENSLEY, Anand Baron Attending Clinician Verónica HENSLEY, Jeovany Ferro Attending Clinician Estefania Hameed CRNA Attending Clinician [phone] ESTEPHANIA FLOOD Attending Clinician Unavailable Aleena HENSLEY, Estephania Willingham Attending Clinician EMILY SALGADO Attending Clinician Unavailable Damian HENSLEY, Emily Gaytan Attending Clinician Rhoda Erickson RN Attending Clinician Unavailable Stevo Hoskins DO Attending Clinician FLORIAN AYERS Attending Clinician Unavailable Florian Ayers DO Attending Clinician Charline HENSLEY, [facility] Pettit Attending Clinician Consuelo HENSLEY, Aziza Attending Clinician Umang HENSLEY, Bebeto Sanchez Attending Clinician Amandeep HENSLYE, Vandana Mae Attending Clinician [phone] Karlo HENSLEY, Handy Blanco Attending Clinician [phone] Nafisa HENSLEY, Jefferson Lisa Attending Clinician Ronnie HENSLEY, Mahnaz Attending Clinician Feng Burgos Attending Clinician Doctor Unassigned, [place] Attending Clinician Unavailable [facility]opedic Attending Clinician Unavailabl e AZALEA GREEN F Attending Clinician Unavailable Azalea Mancilla F Attending [...] Clinician Unavailable DRE MAYER Attending Clinician Unavailable BEBETO WARD Admitting Clinician Unavailable JEREMY SANDOVAL Admitting Clinician Unavailable WILLIAN SINGLETON Admitting Clinician Unavailable NAKIA CRUZ Admitting Clinician Unavailable SHARITA SURESH Admitting Clinician Unavailable DO AIMEE WARD Admitting Clinician Unavailable ESTEPHANIA FLOOD Admitting Clinician Unavailable FLORIAN AYERS Admitting Clinician Unavailable SHANNAREDO STEVO Gallardo Admitting [...] Number Effective Date Expiration Date [facility] [id number] 2019 CHOICE 00:00:00 Problems Condition Condition Condition [...] Added automatic ally from request for surgery [id number] Cirrhosis Cirrhosis Disease Active [facility] of liver of liver 05-06 st with with 00:00: Hospita ascites, ascites, 00 l unspecifie unspecifie d hepatic d hepatic cirrhosis cirrhosis type type Abdominal Abdominal Disease Active 2021-04 Met [facility] pain, pain, 117 st unspecifie unspecifie 00:00: Ho spita d d 00 l abdominal abdominal location location Pancreatic Pancreatic Disease Active 2021-04 Overview : Methodi cyst cyst 0- Formattin st 00:00: g of this Hospita 00 note l might be different from the original. Added automatic ally from request for surgery [id number] Gastritis Gastritis Disease Active Met hodi without [...] Added automatic ally from request for surgery [id number] Pancolitis Pancolitis Disease Active U nivers 6-21 ity of 00:00: [place] [facility] Arrhythmia Arrhythmia Disease Active U nivers 6-21 ity of 00:00: [place] [facility] Ventricula Ventricula Disease Active U nivers r r 6-21 ity of tachycardi [place]cardi [place] [facility] Other Other Disease Active Univers cirrhosis cirrhosis 6-21 ity of of liver of liver 00:00: [place] 00 [facility] ANAYA ANAYA Disease Active Univers (nonalcoho (nonalcoho 6-21 it y of lic lic 00:00: [place] steatohepa 00 Me dical titis) titis) Branch Hypokalemi Hypokalemi Disease Active U nivers a a 6-21 ity of 00:00: [place] [facility] Acute Acute Disease Active Univers colitis colitis 6-21 ity of 00:00: [place] 00 [facility] Abdominal Abdominal Disease Active [...] duct bile duct 00 l [facility] Acute Acute Disease Active 2019-04 Methodi pancreatit pancreatit 05-15 is without is without 00:00: Ho spita infection infection 00 l or or necrosis necrosis Disorder Disorder Disease Active 2019-04 Metho di of liver of liver 05-15 st 00:00: Hospita 00 l SBO (small SBO (small Disease Active U nivers bowel bowel 08-09 ity of obstructio [place] [facility] Epigastric Epigastric Disease Active C [facility] abdominal abdominal 09-30 [facility] pain pain [facility] 00 Center Other Other Disease Recurre [facility] cirrhosis cirrhosis nce 09-30 [facility] of liver of liver 00:00: Medica l Center Increased Increased Disease Recurre [facility] I [...] of - [facility] right knee right knee [facility] Primary Primary Diagnosis Active 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 of itis of - [facility] left knee left knee [facility] Allergies, Adverse Reactions, Alerts Allergy Allergy Status Severity Reaction(s) Onset Inactive Treating Comm ents Source Name Type Date Date Clinician Adhesive Propensi Active Rash Method i Tape-Hillary ty to 01-05 st icones adverse 00:00: Hospita reaction 00 l s to drug Hydromor Propensi Active Rash 2021-0 Univer s phone ty to 6 ity of adverse 00:00: [place] reaction 00 Medical s Branch HYDROMOR DRUG Active Rash Univers PHONE INGREDI 6-22 ity of 00:00: [place] 00 [facility] Branch Hydromor Propensi Active Itching Metho di phone ty to 3-12 st adverse 00:00: Hospita reaction 00 l s to drug Morphine Propensi Active Other (See 2019-04 Tightness Methodi ty to Comments) 2-[address] adverse 00:00: Hospita reaction 00 l s to drug LATEX Allergy Active Low Rash 2016-[address] [facility] [facility] Latex Propensi Active Rash 2016-04 Methodi ty to 2-18 st adverse 00:00: Hospita reaction 00 l s to drug Latex Propensi Active Rash 2016-[address] [facility] adverse 00:[facility]: Medical reaction 00 Center s MORPHINE DRUG Active High Anaphylaxis Uni vers INGREDI 3- ity of 00:00: [place] 00 [facility] MORPHINE Allergy Active High Sob [facility] Morphine Propensi Active Shortness Of Throat [facility] ty to Breath, - closes, [facility] adverse Swelling 00:00: tongue Medical reaction 00 swelling Center s MORPHINE Adverse Active Info Not Commo n Reaction Available Spiri t - [facility] Social History Social Habit Start Date Stop Date Quantity Comments Source History SDOH [facility] Hospit al History SDOK [facility] Gender identity [facility] Sexual orientation [facility] History of Social 2022-09-23 2022-09-[address] function 00:00:00 00:00:00 Hospital Exposure to 2022-08-01 2022-08-11 Not sure University of SARS-CoV-2 (event) 00:00:00 10:30:00 [facility] Tobacco use and 2021-11-27 2021-11-27 Smokeless [facility] exposure 00:00:00 00:00:00 tobacco non-user Hospital History SDOH 2020-03-19 2020-03-19 1 [facility] Frequency 00:00:00 00:00:00 Hospita l Alcohol intake 2018-10-03 2018-10-[address] [facility] 00:00:00 00:00:00 non-drinker of Medical Ce nter alcohol (finding) Sex Ass[birth year] At [birth year] GARY Brownlee 00:00:00 [facility]:00 [facility] Smoking Status Start Date Stop Date Source Never smoked tobacco [facility] Medications Ordered Filled Start Stop Current Ordering Indication Dosage Frequency Signature Comments Components Source Medication Medication Date Date Medication? Clinician (SIG) Name Name linaCLOtide 2022- Yes 145ug QD Take 1 Me thodi (LINZESS) 6-16 08-[address] 145 mcg 00:00: 04:59 (145 mcg Hospi ta capsule 00 :00 total) by l mouth daily before breakfast for 60 days. riFAXimin Yes 550mg Q.5D Take 1 Metho di (XIFAXAN) 6-[address] 550 mg 16:51: (550 mg Hospita tablet 56 total) by l mouth 2 (two) times a day. sucralfate Yes 1g QD Take 10 mL M ethodi (CARAFATE) 6-15 ([address] 100 mg/mL 16:51: total) by Hos alvaro suspension 56 mouth l daily. multivit Yes 1{tbl} QD Take 1 Metho di with 6-[address] calcium,iro 16:51: mouth Hospi ta n,min 56 daily. l (WOMEN'S DAILY MULTIVITAMI N ORAL) torsemide Yes 10mg QD Take 1 Method i (DEMADEX) 6-15 tablet (10 st 10 MG 16:51: mg total) Hospita tablet 56 by mouth l daily. spironolact 2022- Yes 50mg Q.5D Take 1 Met hodi one 6-15 07-16 tablet (50 st (ALDACTONE) 00:00: 04:59 mg total) Hospita 50 MG 00 :00 by mouth 2 l tablet (two) times a day for 30 days. spironolact 2022- No 50mg Q.5D Take 1 Met hodi one 6-11 06-11 tablet (50 st (ALDACTONE) 09:27: 00:00 mg total) Hospita 50 MG 34 :00 by mouth 2 l tablet (two) times a day. ergocalcife 2022- Yes [id number] Q7D Take 1 M ethodi rol 09-11 08-[address] (VITAMIN 00:00: 04:59 (50,000 Hospi ta D2) 50,000 00 :00 Units l unit total) by capsule mouth once a week for 84 days. polyethylen 2022- No 17g Q2D Take 17 g Methodi e glycol 09-[address] (MIRALAX) 15:19: 00:00 every Hospit a 17 gram 22 :00 other day. l packet lactulose Yes 20g Q.5D Take 30 mL Me thodi (CHRONULAC) 09-09 ([address] 10 gram/15 00:00: total) by Ho spita mL solution 00 mouth 2 l (two) times a day. Take once or twice daily to avoid gas distension . Goal is 2 to 3 stools daily ferrous 2022- Yes 325mg Q48H Take 1 Method i sulfate 325 09-[address] (65 FE) MG 00:00: 04:59 (325 mg Hos alvaro tablet 00 :00 total) by l mouth every other day for 30 days. lipase-prot 2022- Yes 1{capsu Q.[id number] Take 1 Methodi ease-amylas 09-09 le} [id number] capsule by st e (ZENPEP) 00:00: 04:59 3D mouth 3 Hos alvaro 5,000-17,00 00 :00 (three) l 0- 24,000 times a unit day with capsule,del meals for ayed 30 days. release(DR/ EC) DR capsule methocarbam 2022- Yes 500mg Q6H Take 1 Me thodi oL 09-[address] (ROBAXIN) 00:00: 04:59 (500 mg [facility] 500 MG 00 :00 total) by l tablet mouth every 6 (six) hours for 30 days. mometasone- 2022- Yes 2{puff} Q.5D Inhale 2 Methodi formoterol 09-[address] (Dulera) 00:00: 04:59 (two) Hospita 200-5 00 :00 times a l mcg/actuati day for 30 on inhaler days. ondansetron 2022- Yes 4mg Q8H Take 1 Met hodi (Zofran) 4 09-09 tablet (4 st MG tablet 00:00: 04:59 mg total) Ho spita 00 :00 by mouth l every 8 (eight) hours as needed for nausea or vomiting for up to 30 days. pantoprazol 2022- Yes 40mg Q.5D Take 1 Met hodi e 09-09 tablet (40 st (PROTONIX) 00:00: 04:59 mg total) H ospita 40 MG EC 00 :00 by mouth 2 l tablet (two) times a day for 30 days. polyethylen 2022- Yes 34g Q.5D Take 34 g Methodi e glycol 09-[address] (MIRALAX) 00:00: 04:59 (two) Hospit a 17 gram 00 :00 times a l packet day for 30 days. Goal is 2 to 3 stools dailyMay use over the counter Miralax brand Ventolin 2022- Yes 2{puff} Q4H Inhale 2 M ethodi HFA 90 09-[address] mcg/actuati 00:00: 04:59 every 4 Ho spita on inhaler 00 :00 (four) l hours as needed for shortness of breath for up to 30 days. simethicone 2022- Yes 80mg Q.[id number] Chew 1 Methodi (MYLICON) 09-09 [id number] tablet (80 st 80 MG 00:00: 04:59 3D mg total) Hospit a chewable 00 :00 3 (three) l tablet times a day with meals for 30 days. May use over the counter Gas-X brand lactulose 2022- No 20g Q.25D Take 30 mL Methodi (CHRONULAC) 09-09 ([address] 10 gram/15 00:00: 00:00 total) by H ospita mL solution 00 :00 mouth 4 l (four) times a day for 30 days. Take once or twice daily to avoid gas distension . Goal is 2 to 3 stools daily KCL 2022-2022- No 40meq 40 mEq, Univers (KLOR-CON 08-07 Oral, ity of M20) tablet 08:30: 07:30 [place]CE, 1 [place] 40 mEq 00 :00 dose, On Medical Sat Branch 08/07/22 at 0330, Routine ondansetron 2022-2022- No 4mg 4 mg, Slow Univers (ZOFRAN 08-07 IV Push, ity of (PF)) 08:00: 06:56 ONCE, 1 [place] injection 4 00 :00 dose, On Medi molly mg Sat Branch 08/07/22 at 0300, VERN KCL 20 mEq 2022-2022- Yes [id number] 20meq Take 1 Univers tablet 08-0703 tablet by ity of 00:00: 04:59 mouth in [place] 00 :00 the Medical morning Branch and 1 tablet in the evening. Do all this for 3 days. lipase-prot 2022-2022- No 1{capsu Q.14399110 Take 1 Methodi ease-amylas 08-04 le} [id number] capsule by st e (CREON) 17:26: 00:00 3D mouth 3 [facility] 36,000-114, 01 :00 (three) l 000- times a 180,000 day with unit meals. capsule,del ayed release(DR/ EC) ondansetron 2022-2022- No 4mg Q8H Take 1 Met hodi (Zofran) 4 08-03 tablet (4 st MG tablet 00:00: 00:00 mg total) Ho spita 00 :00 by mouth l every 8 (eight) hours as needed for nausea or vomiting for up to 30 days. ferrous 2022-0 2022- No 325mg Q48H Take 1 Method i sulfate 325 08-[address] (65 FE) MG 00:00: 00:00 (325 mg Hos alvaro tablet 00 :00 total) by l mouth every other day for 30 days. lactulose 2022-0 2022- No 20mL Q.25D Take 20 mL Methodi (CHRONULAC) 08-03 by mouth 4 s t 10 gram/15 00:00: 00:00 (four) [facility] mL solution 00 :00 times a l day for 30 days. lipase-prot 2022- No 1{capsu Q.[id number] Take 1 Methodi ease-amylas 08-03 le} [id number] capsule by st e (ZENPEP) 00:00: 00:00 3D mouth 3 Hos alvaro 5,000-17,00 00 :00 (three) l 0- 24,000 times a unit day with capsule,del meals for ayed 30 days. release(DR/ EC) DR capsule methocarbam 2022- No 500mg Q6H Take 1 Me thodi oL 08-[address] (ROBAXIN) 00:00: 00:00 (500 mg [facility] 500 MG 00 :00 total) by l tablet mouth every 6 (six) hours for 30 days. mometasone- 2022- No 2{puff} Q.5D Inhale 2 Methodi formoterol 08-[address] (Dulera) 00:00: 00:00 (two) Hospita 200-5 00 :00 times a l mcg/actuati day for 30 on inhaler days. pantoprazol 2022- No 40mg Q.5D Take 1 Met hodi e 08-03 tablet (40 st (PROTONIX) 00:00: 00:00 mg total) H ospita 40 MG EC 00 :00 by mouth 2 l tablet (two) times a day for 30 days. Ventolin 2022- No 2{puff} Q4H Inhale 2 M ethodi HFA 90 08-[address] mcg/actuati 00:00: 00:00 every 4 Ho spita on inhaler 00 :00 (four) l hours as needed for shortness of breath for up to 30 days. oxy[place]OD[place] 2022- [place] [id number] 10mg Q4H Take 1 Meth dimitri (ROXICODONE 08-03-06 tablet (10 s t ) 10 MG 00:00: 04:59 mg total) [facility] tablet 00 :00 by mouth l every 4 (four) hours as needed for severe pain for up to 10 days .acute pain. Max Daily Amount: 60 mg ergocalcife 2022-0 2022- Yes [id number] Q.5W Take 1 M ethodi rol 4-03 05-[address] (VITAMIN 00:00: 04:59 (50,000 Hospi ta D2) 50,000 00 :00 Units l unit total) by capsule mouth 2 (two) times a week for 30 days. lipase-prot 0 2022- Yes .0002U{ Q.[id number] Take 1 Methodi ease-amylas 4-03 05-04 lipase} [id number] capsule st e (ZENPEP) 00:00: 04:59 3D (0.0002 Hos alvaro 5,000-17,00 00 :00 units of l 0 -27,000 lipase unit total) by capsule,del mouth 3 ayed (three) release(DR/ times a EC) day with meals for 30 days. ergocalcife 2022-0 2022- No [id number] Q.5W Take 1 M ethodi rol 4-03 05-[address] (VITAMIN 00:00: 04:59 (50,000 Hospi ta D2) 50,000 00 :00 Units l unit total) by capsule mouth 2 (two) times a week for 30 days. lipase-prot 2022- No .0002U{ Q.94307799 Take 1 Methodi ease-amylas 4-03 04-20 lipase} [id number] capsule st e (ZENPEP) 00:00: 00:00 3D (0.0002 Hos alvaro 5,000-17,00 00 :00 [...] mouth 2 (two) times a day. polyethylen 0 Yes 17g Q2D Take 17 g M ethodi e glycol 07-[address] (MIRALAX) 12:00: every Hospita 17 gram 11 other day. l packet spironolact Yes 50mg Q.5D Take 1 Meth dimitri one 07-09 tablet (50 st (ALDACTONE) 12:00: mg total) H ospita 50 MG 11 by mouth 2 l tablet (two) times a day. sucralfate 0 Yes 1g QD Take 10 mL M ethodi (CARAFATE) 07-09 ([address] 100 mg/mL 12:00: total) by Hos alvaro suspension 11 mouth l daily. lipase-prot 2022- No 2{capsu Q.[id number] Take 2 Methodi ease-amylas 07-09 le} [id number] capsules st e (CREON) 10:12: 00:00 3D by mouth 3 H ospita 36,000-114, 45 :00 (three) l 000- times a 180,000 day with unit meals. capsule,del ayed release(DR/ EC) lipase-prot 2022- No 2{capsu Q.[id number] Take 2 Methodi ease-amylas 07-09 le} [id number] capsules st e (CREON) 10:12: 00:00 3D by mouth 3 H ospita 36,000-114, 45 :00 (three) l 000- times a 180,000 day with unit meals. capsule,del ayed release(DR/ EC) torsemide 2022- Yes 20mg QD Take 1 Metho di (DEMADEX) 07-09 tablet (20 st 20 MG 00:00: 04:59 mg total) Hospit a tablet 00 :00 by mouth l daily for 30 days. lactulose 0 2022- Yes 20mL Q.25D Take 20 mL Methodi (CHRONULAC) 07-09 by mouth 4 s t 10 gram/15 00:00: 04:59 (four) [facility] mL solution 00 :00 times a l day for 30 days. torsemide 2022-0 2022- No 20mg QD Take 1 Metho di (DEMADEX) 07-09 tablet (20 st 20 MG 00:00: 04:59 mg total) Hospit a tablet 00 :00 by mouth l daily for 30 days. lactulose 2022- No 20mL Q.25D Take 20 mL Methodi (CHRONULAC) 07-0925 by mouth 4 s t 10 gram/15 00:00: 00:00 (four) [facility] mL solution 00 :00 times a l day for 30 days. oxyCODone 2022-2022- [place] [id number] 10mg Q6H Take 1 Meth dimitri (ROXICODONE 07-09 tablet (10 s t ) 10 MG 00:00: 00:00 mg total) [facility] tablet 00 :00 by mouth l every 6 (six) hours as needed for severe pain .acute pain. Max Daily Amount: 40 mg lipase-prot 2022- No 2{capsu Q.[id number] Take 2 Methodi ease-amylas 07-09 le} [id number] capsules st e (CREON) 00:00: 00:00 3D by mouth 3 H ospita 36,000-114, 00 :00 (three) l 000- times a 180,000 day with unit meals for capsule,del 30 days. ayed release(DR/ EC) lipase-prot 2022- No 2{capsu Q.[id number] Take 2 Methodi ease-amylas 07-09 le} [id number] capsules st e (CREON) 00:00: 00:00 3D by mouth 3 H ospita 36,000-114, 00 :00 (three) l 000- times a 180,000 day with unit meals for capsule,del 30 days. ayed release(DR/ EC) oxyCODONE 2022-0 2022- [place] [id number] 5mg Q8H Take 1 Meth dimitri (ROXICODONE 07-01- tablet (5 st ) 5 MG 16:19: 00:00 mg total) Hospi ta immediate 01 :00 by mouth l release every 8 tablet (eight) hours as needed for severe pain .acute pain. Max Daily Amount: 15 mg methocarbam 2022-2022- No 500mg Q.[id number] Take 1 Methodi oL 07-[id number] (ROBAXIN) 16:19: 00:00 3D (500 mg [facility] 500 MG 01 :00 total) by l tablet mouth 3 (three) times a day as needed for muscle spasms. oxyCODONE 2023-0 2023- [place] [id number] 5mg Q8H Take 1 Meth dimitri (ROXICODONE -01 07-22 tablet (5 st ) 5 MG 16:19: 00:00 mg total) Hospi ta immediate 01 :00 by mouth l release every 8 tablet (eight) hours as needed for severe pain .acute pain. Max Daily Amount: 15 mg methocarbam 2023-0 2023- No 500mg Q.[id number] Take 1 Methodi oL -06-[id number] (ROBAXIN) 16:19: 00:00 3D (500 mg [facility] 500 MG 01 :00 total) by l tablet mouth 3 (three) times a day as needed for muscle spasms. oxyCODONE 2023-0 Yes [id number] 10mg Q6H Take 2 Metho di (ROXICODONE 3-[address] ) 5 MG 00:00: (10 mg Hospita immediate 00 total) by l release mouth tablet every 6 (six) hours as needed for severe pain .acute pain. Max Daily Amount: 40 mg pregabalin 2023-0 Yes 75mg Q.5D Take 1 Metho di (LYRICA) 75 3-[address] MG capsule 00:00: (75 mg Hospi ta 00 total) by l mouth 2 (two) times a day. magnesium 2023-0 Yes 400mg QD Take 1 Metho di oxide 3-[address] (MAG-OX) 00:00: (400 mg Hospit a 400 mg 00 total) by l (241.3 mg mouth magnesium) daily. tablet pregabalin 2023-0 Yes 75mg Q.5D Take 1 Metho di (LYRICA) 75 3-[address] MG capsule 00:00: (75 mg Hospi ta 00 total) by l mouth 2 (two) times a day. magnesium 2023-0 Yes 400mg QD Take 1 Metho di oxide 3-[address] (MAG-OX) 00:00: (400 mg Hospit a 400 mg 00 total) by l (241.3 mg mouth magnesium) daily. tablet ferrous 2023-0 2023- No 325mg Q48H Take 1 Method i sulfate 325 06-30-[address] (65 FE) MG 00:00: 00:00 (325 mg Hos alvaro tablet 00 :00 total) by l mouth every other day for 30 days. ondansetron 2022- No 4mg Q8H Take 1 Met hodi (Zofran) 4 06-30-25 tablet (4 st MG tablet 00:00: 00:00 mg total) Ho spita 00 :00 by mouth l every 8 (eight) hours as needed for nausea or vomiting for up to 30 days. methocarbam 2022- No 500mg Q.[id number] Take 1 Methodi oL 06-30-[id number] (ROBAXIN) 00:00: 00:00 3D (500 mg [facility] 500 MG 00 :00 total) by l tablet mouth 3 (three) times a day as needed (muscle cramping) for up to 30 days. mometasone- 2022- No 2{puff} Q.5D Inhale 2 Methodi formoterol 06-30-[address] (Dulera) 00:00: 00:00 (two) Hospita 200-5 00 :00 times a l mcg/actuati day for 30 on inhaler days. pantoprazol 2022- No 40mg Q.5D Take 1 Met hodi e 06-30-25 tablet (40 st (PROTONIX) 00:00: 00:00 mg total) H ospita 40 MG EC 00 :00 by mouth 2 l tablet (two) times a day for 30 days. Ventolin 2022- No 2{puff} Q4H Inhale 2 M ethodi HFA 90 06-30-[address] mcg/actuati 00:00: 00:00 every 4 Ho spita on inhaler 00 :00 (four) l hours as needed for shortness of breath for up to 30 days. ferrous 2022-2022- No 325mg Q48H Take 1 Method i sulfate 325 06-30-[address] (65 FE) MG 00:00: 04:59 (325 mg Hos alvaro tablet 00 :00 total) by l mouth every other day for 30 days. ondansetron 2022- No 4mg Q8H Take 1 Met hodi (Zofran) 4 06-30 tablet (4 st MG tablet 00:00: 04:59 mg total) Ho spita 00 :00 by mouth l every 8 (eight) hours as needed for nausea or vomiting for up to 30 days. methocarbam 2022- No 500mg Q.11218025 Take 1 Methodi oL 06-[id number] (ROBAXIN) 00:00: 04:59 3D (500 mg [facility] 500 MG 00 :00 total) by l tablet mouth 3 (three) times a day as needed (muscle cramping) for up to 30 days. mometasone- 2022- No 2{puff} Q.5D Inhale 2 Methodi formoterol 06-30- puffs 2 st (Dulera) 00:00: 04:59 (two) Hospita 200-5 00 :00 times a l mcg/actuati day for 30 on inhaler days. pantoprazol 2022- No 40mg Q.5D Take 1 Met hodi e 06-30 tablet (40 st (PROTONIX) 00:00: 04:59 mg total) H ospita 40 MG EC 00 :00 by mouth 2 l tablet (two) times a day for 30 days. Ventolin 2022- No 2{puff} Q4H Inhale 2 M ethodi HFA 90 06-[address] mcg/actuati 00:00: 04:59 every 4 Ho spita on inhaler 00 :00 (four) l hours as needed for shortness of breath for up to 30 days. oxyCODONE 2022- [place] [id number] 10mg Q6H Take 2 Meth dimitri (ROXICODONE 06-30-[address] ) 5 MG 00:00: 00:00 (10 mg Hospita immediate 00 :00 total) by l release mouth tablet every 6 (six) hours as needed for severe pain .acute pain. Max Daily Amount: 40 mg furosemide 2022- No 40mg QD Take 1 Meth dimitri (Lasix) 40 06-30-31 tablet (40 st mg tablet 00:00: 00:00 mg total) Ho spita 00 :00 by mouth l daily for 30 days. furosemide 2022-0 2022- No 40mg QD Take 1 Meth dimitri (Lasix) 40 06-30-31 tablet (40 st mg tablet 00:00: 00:00 mg total) Ho spita 00 :00 by mouth l daily for 30 days. ondansetron 2022-0 2022- No 4mg Q8H Take 1 Met hodi (Zofran) 4 05-30- tablet (4 st MG tablet 00:00: 00:00 mg total) Ho spita 00 :00 by mouth l every 8 (eight) hours as needed for nausea or vomiting for up to 30 days. ondansetron 2022-0 2022- No 4mg Q8H Take 1 Met hodi (Zofran) 4 05-30- tablet (4 st MG tablet 00:00: 00:00 mg total) Ho spita 00 :00 by mouth l every 8 (eight) hours as needed for nausea or vomiting for up to 30 days. oxyCODONE 2022-0 2022- No [id number] 5mg Q8H Take 1 Meth dimitri (ROXICODONE 2-27 06-02 tablet (5 st ) 5 MG 00:00: 05:59 mg total) Hospi ta immediate 00 :00 by mouth l release every 8 tablet (eight) hours as needed for severe pain for up to 10 days .acute pain, chronic pain. Max Daily Amount: 15 mg oxyCODONE 2022-0 2022- No [id number] 5mg Q8H Take 1 Meth dimitri (ROXICODONE 2-27 06-02 tablet (5 st ) 5 MG 00:00: 05:59 mg total) Hospi ta immediate 00 :00 by mouth l release every 8 tablet (eight) hours as needed for severe pain for up to 10 days .acute pain, chronic pain. Max Daily Amount: 15 mg pantoprazol 0 2022- No 40mg QD Take 1 Met hodi e 2-10 -09 tablet (40 st (PROTONIX) 15:57: 00:00 mg total) H ospita 40 MG EC 02 :00 by mouth l tablet daily. pantoprazol 2022-0 2022- No 40mg QD Take 1 Met hodi e 2-01 10- tablet (40 st (PROTONIX) 15:57: 00:00 mg total) H ospita 40 MG EC 02 :00 by mouth l tablet daily. ferrous 2022-0 2022- No 325mg Q48H Take 1 Method i sulfate 325 -01 11- tablet st (65 FE) MG 00:00: 00:00 (325 mg Hos alvaro tablet 00 :00 total) by l mouth every other day for 30 days. ferrous 2022-0 2022- No 325mg Q48H Take 1 Method i sulfate 325 05-21- tablet st (65 FE) MG 00:00: 00:00 (325 mg Hos alvaro tablet 00 :00 total) by l mouth every other day for 30 days. pantoprazol 2022-2022- No 40mg Q.5D Take 1 Met hodi e 05-20 tablet (40 st (PROTONIX) 00:00: 00:00 mg total) H ospita 40 MG EC 00 :00 by mouth 2 l tablet (two) times a day for 30 days. furosemide 2022-2022- No 40mg QD Take 1 Meth dimitri (Lasix) 40 05-20- tablet (40 st mg tablet 00:00: 00:00 mg total) Ho sp[facility] 00 :00 by mouth l daily for 30 days. mometasone- 2022-2022- No 2{puff} Q.5D Inhale 2 Methodi formoterol 05-[address] (Dulera) 00:00: 00:00 (two) Hospita 200-5 00 :00 times a l mcg/actuati day for 30 on inhaler days. pantoprazol 2022-0 2022- No 40mg Q.5D Take 1 Met hodi e 05-20- tablet (40 st (PROTONIX) 00:00: 00:00 mg total) H ospita 40 MG EC 00 :00 by mouth 2 l tablet (two) times a day for 30 days. furosemide 2022-2022- No 40mg QD Take 1 Meth dimitri (Lasix) 40 05-20- tablet (40 st mg tablet 00:00: 00:00 mg total) Ho spita 00 :00 by mouth l daily for 30 days. mometasone- 2022- No 2{puff} Q.5D Inhale 2 [facility] formoterol 2 03-[address] (Dulera) 00:00: 00:00 (two) Hospita 200-5 00 :00 times a l mcg/actuati day for 30 on inhaler days. methocarbam 2022- No 500mg Q.25D Take 1 M ethodi oL 05-[address] (ROBAXIN) 11:09: 00:00 (500 mg [facility] 500 MG 58 :00 total) by l tablet mouth 4 (four) times a day. methocarbam 2022- No 500mg Q.25D Take 1 M ethodi oL 05-[address] (ROBAXIN) 11:09: 00:00 (500 mg [facility] 500 MG 58 :00 total) by l tablet mouth 4 (four) times a day. alendronate Yes 70mg Q7D Take 1 Meth dim[facility]ri (FOSAMAX) 1-12 tablet (70 st 70 MG 00:00: mg total) Hospita tablet 00 by mouth l once a week. Tuesday alendronate 2022-0 Yes 70mg Q7D Take 1 Meth dimitri [...] Medical Geraldine 04/15/22 Branch at 2029, VERN albuterol 2023-0 2023- No 2.5mg Q4H Take 3 mL M ethodi (ACCUNEB) 04-16-22 (2.[address] 2.5 mg /3 00:00: 00:00 total) by Ho spita mL (0.083 00 :00 nebulizati l %) on every 4 nebulizer (four) solution hours as needed for shortness of breath. Ventolin 2022-0 2023- No 2{puff} Q4H Inhale 2 M ethodi HFA 90 04-16 03-[address] mcg/actuati 00:00: 00:00 every 4 Ho spita on inhaler 00 :00 (four) l hours as needed for shortness of breath. albuterol 2022-0 2022- No 2.5mg Q4H Take 3 mL M ethodi (ACCUNEB) 04-16- (2.[address] 2.5 mg /3 00:00: 00:00 total) by Ho spita mL (0.083 00 :00 nebulizati l %) on every 4 nebulizer (four) solution hours as needed for shortness of breath. Ventolin 3-0 2023- No 2{puff} Q4H Inhale 2 M ethodi HFA 90 04-16 03-[address] mcg/actuati 00:00: 00:00 every 4 Ho spita on inhaler 00 :00 (four) l hours as needed for shortness of breath. furosemide 2022-0 3- No 20mg Q.5D Take 1 Meth dimitri (LASIX) 20 04-16- tablet (20 st mg tablet 00:00: 00:00 mg total) Ho spita 00 :00 by mouth 2 l (two) times a day. furosemide 2023-0 2023- No 20mg Q.5D Take 1 Meth dimitri (LASIX) 20 04-16- tablet (20 st mg tablet 00:00: 00:00 mg total) Ho spita 00 :00 by mouth 2 l (two) times a day. lactulose 2022-0 Yes 30mL Take 30 mL Un marline 10 gram/15 1-05 by mouth ity o f mL oral 22:09: daily. [address] pantoprazol 2022-0 Yes 40mg Take 40 mg [...] mg EC 04 Medical tablet Branch albuterol 2022-0 Yes [id number] 2{puff} Inhale 2 [facility] 90 1-05 Puffs ity of mcg/actuati 00:00: every 4 [place] as on inhaler 00 (four) Medical hours as Branch needed for Wheezing or Shortness of Breath. albuterol 2022-0 Yes [id number] 2.5mg Inhale 3 [facility] 2.5 mg /3 1-05 mL every 4 ity of mL (0.083 00:00: (four) [place] %) 00 hours. May Medical nebulizer also Branch solution nebulize one extra every 6 hours. albuterol 2022-0 Yes [id number] 2{puff} Inhale 2 [facility] 90 1-05 Puffs ity of mcg/actuati 00:00: every 4 [place] as on inhaler 00 (four) Medical hours as Branch needed for Wheezing or Shortness of Breath. albuterol 2022-0 Yes [id number] 2.5mg Inhale 3 [facility] 2.5 mg /3 1-05 mL every 4 ity of mL (0.083 00:00: (four) [place] %) 00 hours. May Medical nebulizer also Branch solution nebulize one extra every 6 hours. albuterol 2022-0 Yes [id number] 2{puff} Inhale 2 [facility] 90 1-05 Puffs ity of mcg/actuati 00:00: every 4 [place] as on inhaler 00 (four) Medical hours as Branch needed for Wheezing or Shortness of Breath. albuterol 2022-0 Yes [id number] 2.5mg Inhale 3 Univers 2.5 mg /3 1-05 mL every 4 ity of mL (0.083 00:00: (four) [place] %) 00 hours. May Medical nebulizer also Branch solution nebulize one extra every 6 hours. albuterol 2022-0 Yes [id number] 2{puff} Inhale 2 [facility] 90 1-05 Puffs ity of mcg/actuati 00:00: every 4 [place] as on inhaler 00 (four) Medical hours as Branch needed for Wheezing or Shortness of Breath. albuterol 2022-0 Yes [id number] 2.5mg Inhale 3 [facility] 2.5 mg /3 1-05 mL every 4 ity of mL (0.083 00:00: (four) [place] %) 00 hours. May Medical nebulizer also Branch solution nebulize one extra every 6 hours. albuterol 2022-0 Yes [id number] 2{puff} Inhale 2 Univers 90 1-05 Puffs ity of mcg/actuati 00:00: every 4 [place] as on inhaler 00 (four) Medical hours as Branch needed for Wheezing or Shortness of Breath. albuterol 2022-0 Yes [id number] 2.5mg Inhale 3 [facility] 2.5 mg /3 1-05 mL every 4 ity of mL (0.083 00:00: (four) [place] %) 00 hours. May Medical nebulizer also Branch solution nebulize one extra every 6 hours. furosemide 2023-0 2023- No [id number] 20mg Take 1 [facility] 20 mg 04-15 tablet by ity of tablet 00:00: 05:59 mouth [place] 00 :00 every Medical morning Branch and evening for 5 days. predniSONE 2022- No [id number] 20mg Take 1 [facility] 20 mg 04-15 tablet by ity of tablet 00:00: 05:59 mouth in [place] 00 :00 the Medical morning Branch and 1 tablet in the evening. Do all this for 2 days. FENTanyl PF 2021-04- No 50ug 50 mcg, Un [place] (SUBLIMAZE 04-10 Slow IV ity o f (PF)) 04:30: 03:33 Push, [place] injection 00 :00 ONCE, 1 Medical 50 mcg dose, On Branch 04/09/22 at 2230, VERN cefTRIAXone 2021-04- No 1000mg 1,000 mg, Univers (ROCEPHIN) 04-10 IV ity of 1,000 mg in 03:00: 03:45 Piggyback, [place] NaCl 0.9% 00 :00 ONCE, 1 Medical (NS) 50 mL dose, On [facility] h MINI-BAG 04/09/22 at 2100, Administer over 30 Minutes, 50 mL
Reas on for Anti-Infec tive: Documented Infection< br>Documen josemanuel Infection Site: Urine<br&g t;Duration of Therapy: 7 days lactulose 2021-04- No 30mL 30 mL, Unive rs (CEPHULAC) 04-10 Oral, ity of solution 30 03:00: 03:10 ONCE, 1 [place] mL 00 :00 dose, On Medical Fri Branch 04/09/22 at 2100, VERN KCL 10 mEq 2021-04 Yes [id number] 10meq Take 1 Univers tablet 2-30 [id number] tablet by ity of 00:00: mouth in [place] 00 the Medical morning. Branch ciprofloxac 2021-04 Yes [id number] 500mg Take 1 Univers in HCl 500 2-30 [id number] tablet by it y of mg tablet 00:00: [facility] the [facility] morning Branch and 1 tablet in the evening. KCL 10 mEq 2022-1 Yes [id number] 10meq Take 1 Univers tablet 2-30 [id number] tablet by ity of 00:00: mouth in [place] the Medical morning. Branch ciprofloxac 2021-04 Yes [id number] 500mg Take 1 [facility] in HCl 500 2-30 [id number] tablet by it y of mg tablet 00:00: mouth [place] 00 the Medical morning Branch and 1 tablet in the evening. KCL 10 mEq 2021-04 Yes [id number] 10meq Take 1 [facility] tablet 2-30 [id number] tablet by ity of 00:00: mouth in [place] the Medical morning. Branch ciprofloxac 2021-04 Yes [id number] 500mg Take 1 [facility] in HCl 500 2-30 [id number] tablet by it y of mg tablet 00:00: mouth [place] the Medical morning Branch and 1 tablet in the evening. KCL 10 mEq 2021-04 Yes [id number] 10meq Take 1 [facility] tablet 2-30 [id number] tablet by ity of 00:00: mouth in [place] the Medical morning. Branch ciprofloxac 2021-04 Yes [id number] 500mg Take 1 [facility] in HCl 500 2-30 [id number] tablet by it y of mg tablet 00:00: mouth [place] 00 the Medical morning Branch and 1 tablet in the evening. KCL 10 mEq 2021-04 Yes [id number] 10meq Take 1 Univers tablet 2-30 [id number] tablet by ity of 00:00: mouth in [place] the Medical morning. Branch ciprofloxac 2021-04 Yes [id number] 500mg Take 1 [facility] in HCl 500 2-30 [id number] tablet by it y of mg tablet 00:00: mouth [place] 00 the Medical morning Branch and 1 tablet in the evening. KCL 10 mEq 2021-04 Yes [id number] 10meq Take 1 [facility] tablet 2-30 [id number] tablet by ity of 00:00: mouth in [place] 00 the Medical morning. Branch ciprofloxac 2021-04 Yes [id number] 500mg Take 1 Univers in HCl 500 2-30 [id number] tablet by it y of mg tablet 00:00: mouth [place] 00 the Medical morning Branch and 1 tablet in the evening. lactulose 2021-04- No 20mL Q.25D Take 20 mL Methodi (CHRONULAC) 2-15 03-31 by mouth 4 s t 10 gram/15 00:00: 00:00 (four) [facility] mL solution 00 :00 times a l day. lactulose 2021-04 No 20mL Q.25D Take 20 mL Methodi (CHRONULAC) 05-26 by mouth 4 s t 10 gram/15 00:00: 00:00 (four) [facility] mL solution 00 :00 times a l day. psyllium 2021-04 No 1{packe Q48H Take 1 Met hodi husk 05-01 t} packet by st sugar-free 00:00: 05:59 mouth Hospi ta (METAMUCIL) 00 :00 every l 6 gram other day packet for 30 days. psyllium 2021-04 No 1{packe Q48H Take 1 Met hodi husk 05-01 t} packet by st sugar-free 00:00: 05:59 mouth Hospi ta (METAMUCIL) 00 :00 every l 6 gram other day packet for 30 days. psyllium 2021-04 No 1{packe Q48H Take 1 Met hodi husk 05-01 t} packet by st sugar-free 00:00: 05:59 mouth Hospi ta (METAMUCIL) 00 :00 every l 6 gram other day packet for 30 days. psyllium 2021-04 No 1{packe Q48H Take 1 Met hodi husk 05-01 t} packet by st sugar-free 00:00: 05:59 mouth Hospi ta (METAMUCIL) 00 :00 every l 6 gram other day packet for 30 days. psyllium 2021-04 No 1{packe Q48H Take 1 Met hodi husk 05-01 t} packet by st sugar-free 00:00: 05:59 mouth Hospi ta (METAMUCIL) 00 :00 every l 6 gram other day packet for 30 days. psyllium 2021-04 No 1{packe Q48H Take 1 Met hodi [...] times a day. lipase-prot 2021-04 Yes 1{capsu Q.[id number] Take 1 Methodi ease-amylas 1-19 le} [id number] capsule by st e (CREON) 18:47: 3D [...] times a day. lipase-prot 2021-04 Yes 1{capsu Q.28566038 Take 1 Method[facility] ease-amylas 1-19 le} [id number] capsule by st e (CREON) 18:47: 3D [...] times a day. lipase-prot 2021-04 Yes 1{capsu Q.00625087 Take 1 [facility] ease-amylas 1-19 le} [id number] capsule by st e (CREON) 18:47: 3D [...] times a day. lipase-prot 2021-04 Yes 1{capsu Q.48053376 Take 1 Methodi ease-amylas 1-19 le} [id number] capsule by st e (CREON) 18:47: 3D [...] dose on Tue02/16/22 at 1200, Routine iopamidol 2021-04 No [id number] 74mL 74 mL, U nivers (ISOVUE 04-17 Intravenou ity o f 370-500 mL) 21:30: 21:30 s, ONCE, 1 [place] injection 00 :00 dose, On Medica l 74 mL Tue Branch 02/15/22 at 1530, Routine ondansetron 2021-04 No 4mg 4 mg, Slow Univers (ZOFRAN 04-17 IV Push, ity of (PF)) 21:00: 20:19 ONCE, 1 [place] injection 4 00 :00 dose, On Medi molly mg Tue Branch 02/15/22 at 1500, Routine ondansetron 2021-04 Yes [id number] 4mg Take 1 Univers 4 mg 1-07 tablet by ity of disintegrat 00:00: mouth [place] ing tablet 00 every 8 Medica l (eight) Branch hours as needed for Nausea and Vomiting (N/V). dicyclomine 2021-04 Yes [id number] 20mg Take 1 Univers 20 mg 1-07 tablet by ity of tablet 00:00: mouth 4 [place] 00 (four) Medical times Branch daily. loperamide 2021-04 Yes [id number] 2mg Take 1 U nivers 2 mg 1-07 capsule by ity of capsule 00:00: mouth [place] 00 every 4 Medical (four) Branch hours as needed for Diarrhea. Not to exceed 16mg daily. ondansetron 2021-04 Yes [id number] 4mg Take 1 Univers 4 mg 1-07 tablet by ity of disintegrat 00:00: mouth [place] ing tablet 00 every 8 Medica l (eight) Branch hours as needed for Nausea and Vomiting (N/V). dicyclomine 2021-04 Yes [id number] 20mg Take 1 [facility] 20 mg 1-07 tablet by ity of tablet 00:00: mouth 4 [place] 00 (four) Medical times Branch daily. loperamide 2022-1 Yes [id number] 2mg Take 1 U nivers 2 mg 1-07 capsule by ity of capsule 00:00: mouth [place] 00 every 4 Medical (four) Branch hours as needed for Diarrhea. Not to exceed 16mg daily. ondansetron 2021-04 Yes [id number] 4mg Take 1 Univers 4 mg 1-07 tablet by ity of disintegrat 00:00: mouth [place] ing tablet 00 every 8 Medica l (eight) Branch hours as needed for Nausea and Vomiting (N/V). dicyclomine 2021-04 Yes [id number] 20mg Take 1 [facility] 20 mg 1-07 tablet by ity of tablet 00:00: mouth 4 [place] 00 (four) Medical times Branch daily. loperamide 2021-04 Yes [id number] 2mg Take 1 U nivers 2 mg 1-07 capsule by ity of capsule 00:00: mouth [place] 00 every 4 Medical (four) Branch hours as needed for Diarrhea. Not to exceed 16mg daily. ondansetron 2021-04 Yes [id number] 4mg Take 1 Univers 4 mg 1-07 tablet by ity of disintegrat 00:00: mouth [place] ing tablet 00 every 8 Medica l (eight) Branch hours as needed for Nausea and Vomiting (N/V). dicyclomine 2021-04 Yes [id number] 20mg Take 1 [facility] 20 mg 1-07 tablet by ity of tablet 00:00: mouth 4 [place] 00 (four) Medical times Branch daily. loperamide 2021-04 Yes [id number] 2mg Take 1 U nivers 2 mg 1-07 capsule by ity of capsule 00:00: mouth [place] 00 every 4 Medical (four) Branch hours as needed for Diarrhea. Not to exceed 16mg daily. ondansetron 2021-04 Yes [id number] 4mg Take 1 Univers 4 mg 1-07 tablet by ity of disintegrat 00:00: mouth [place] ing tablet 00 every 8 Medica l (eight) Branch hours as needed for Nausea and Vomiting (N/V). dicyclomine 2021-04 Yes [id number] 20mg Take 1 Univers 20 mg 1-07 tablet by ity of tablet 00:00: mouth 4 [place] 00 (four) Medical times Branch daily. loperamide 2021-04 Yes [id number] 2mg Take 1 U nivers 2 mg 1-07 capsule by ity of capsule 00:00: mouth [place] 00 every 4 Medical (four) Branch hours as needed for Diarrhea. Not to exceed 16mg daily. ondansetron 2021-04 Yes [id number] 4mg Take 1 Univers 4 mg 1-07 tablet by ity of disintegrat 00:00: mouth [place] ing tablet 00 every 8 Medica l (eight) Branch hours as needed for Nausea and Vomiting (N/V). dicyclomine 2021-04 Yes [id number] 20mg Take 1 [facility] 20 mg 1-07 tablet by ity of tablet 00:00: mouth 4 [place] 00 (four) Medical times Branch daily. loperamide 2021-04 Yes [id number] 2mg Take 1 U nivers 2 mg 1-07 capsule by ity of capsule 00:00: mouth [place] 00 every 4 Medical (four) Branch hours as needed for Diarrhea. Not to exceed 16mg daily. ondansetron 2021-04 Yes [id number] 4mg Take 1 Univers 4 mg 1-07 tablet by ity of disintegrat 00:00: mouth [place] ing tablet 00 every 8 Medica l (eight) Branch hours as needed for Nausea and Vomiting (N/V). dicyclomine 2021-04 Yes [id number] 20mg Take 1 Univers 20 mg 1-07 tablet by ity of tablet 00:00: mouth 4 [place] 00 (four) Medical times Branch daily. loperamide 2021-04 Yes [id number] 2mg Take 1 U nivers 2 mg 1-07 capsule by ity of capsule 00:00: mouth [place] 00 every 4 Medical (four) Branch hours as needed for Diarrhea. Not to exceed 16mg daily. furosemide 2021-04- No 40mg Q.5D Take 1 Meth dimitri (Lasix) 40 0-03-07 tablet (40 st mg tablet 00:00: 05:59 [...] Q.5D Take 1 Meth dimitri (Lasix) 40 003-07 tablet (40 st mg tablet 00:00: 05:59 [...] Take 30 mL Methodi 20 gram/30 0-27 -27 ([address] mL solution 00:00: 05:59 [...] Take 30 mL Methodi 20 gram/30 0-27 - ([address] mL solution 00:00: [...] Q.5D Take 1 Met hodi one 0-27 03-07 tablet (50 st (ALDACTONE) 00:00: 05:59 [...] 2021-04 1{capsu QD Take 1 Methodi sulfate 0-07 03- le} capsule by (ZINCATE) 00:00: 05:59 mouth Hospit a 50 mg zinc 00 :00 daily for l (220 mg) 30 days. capsule HYDROcodone 2021-04 1{tbl} Q4H Take 1 Methodi -acetaminop 0-27 11-[address] [facility]) 00:00: 05:59 mouth [facility] 10-325 mg 00 :00 every 4 l per tablet (four) hours as needed for severe pain for up to 10 days .acute pain. Max Daily Amount: 6 tablets HYDROcodone 2021-0428 1{tbl} Q4H Take 1 Methodi -acetaminop 0-27 11-[address] hen (edenes) 00:00: 05:59 mouth [facility] 10-325 mg 00 :00 every 4 l per tablet (four) hours as needed for severe pain for up to 10 days .acute pain. Max Daily Amount: 6 tablets HYDROcodone 2021-0428 1{tbl} Q4H Take 1 Methodi -acetaminop 0-27 11-[address] hen [employer]) 00:00: 05:59 mouth [facility] 10-325 mg 00 :00 every 4 l per tablet (four) hours as needed for severe pain for up to 10 days .acute pain. Max Daily Amount: 6 tablets HYDROcodone 2021-04 No [id number] 1{tbl} Q4H Take 1 Methodi -acetaminop 0-27 11-[address] hen ([employer]) 00:00: 05:59 mouth [facility] 10-325 mg 00 :00 every 4 l per tablet (four) hours as needed for severe pain for up to 10 days .acute pain. Max Daily Amount: 6 tablets HYDROcodone 2021-04 No [id number] 1{tbl} Q4H Take 1 Methodi -acetaminop 0-27 11-[address] hen ([employer]) 00:00: 05:59 mouth [facility] 10-325 mg 00 :00 every 4 l per tablet (four) hours as needed for severe pain for up to 10 days .acute pain. Max Daily Amount: 6 tablets HYDROcodone 2021-04 [id number] 1{tbl} Q4H Take 1 Methodi -acetaminop 0-27 11-[address] hen ([employer]) 00:00: 05:59 mouth [facility] 10-325 mg [...] QD Take 17 g Methodi e glycol - 10-[address] (MIRALAX) 00:00: 04:59 daily for Ho sp[facility] 17 gram 00 :00 30 days. l packet polyethylen 2021- No 17g QD Take 17 g Methodi e glycol 9- 10-[address] (MIRALAX) 00:00: 04:59 daily for Ho spita 17 gram 00 :00 30 days. l packet polyethylen 2021- No 17g QD Take 17 g Methodi e glycol 9- 10-[address] (MIRALAX) 00:00: 04:59 [...] 9- 10-27 tablet (50 st (ALDACTONE) 00:00: 04:59 [...] 10- le} capsule by st (ZINCATE) 00:00: 04:59 mouth Hospit a 50 mg zinc 00 :00 daily for l (220 mg) 30 days. capsule lactulose 2021- No 20g Q.25D Take 30 mL Methodi 20 gram/30 -03 02- ([address] mL solution 00:00: 04:59 [...] No 1{capsu QD Take 1 Methodi sulfate -26 10- le} capsule by st (ZINCATE) 00:00: 04:59 [...] - 10-27 tablet (40 st (PROTONIX) 00:00: 00:00 mg [...] times a day for 30 days. sucralfate 0 2021- No 1g Q.25D Take 10 mL [...] times a day. pancrelipas 2021- No 2{capsu Q.80574545 Take 2 Methodi e, 12-18 le} [id number] capsules st lipase-prot 00:00: 04:59 3D by mouth 3 [facility] 00 :00 (three) l e, (CREON) times a 6,000-19,00 day with 0 -30,000 meals for unit 30 days. capsule,del ayed release(DR/ EC) capsule methocarbam 2021- No 500mg Q.[id number] Take 1 Methodi oL 12-[id number] (ROBAXIN) 00:00: 04:59 3D (500 mg [facility] 500 MG 00 :00 total) by l tablet mouth 3 (three) times a day as needed (abdominal cramping) for up to 30 days. pancrelipas 2021-2021- No 2{capsu Q.[id number] Take 2 Methodi e, 12-18 le} [id number] capsules st lipase-prot 00:00: 04:59 3D by mouth 3 [facility] 00 :00 (three) l e, (CREON) times a 6,000-19,00 day with 0 -30,000 meals for unit 30 days. capsule,del ayed release(DR/ EC) capsule methocarbam 2021- No 500mg Q.94455619 Take 1 Methodi oL 12-[id number] (ROBAXIN) 00:00: 04:59 3D (500 mg [facility] 500 MG 00 :00 total) by l tablet mouth 3 (three) times a day as needed (abdominal cramping) for up to 30 days. pancrelipas 2021- No 2{capsu Q.18708133 Take 2 Methodi e, 12-18 le} [id number] capsules st lipase-prot 00:00: 04:59 3D by mouth 3 [facility] 00 :00 (three) l e, (CREON) times a 6,000-19,00 day with 0 -30,000 meals for unit 30 days. capsule,del ayed release(DR/ EC) capsule methocarbam 0 2021- No 500mg Q.82500276 Take 1 Methodi oL 12-[id number] (ROBAXIN) 00:00: 04:59 3D (500 mg [facility] 500 MG 00 :00 total) by l tablet mouth 3 (three) times a day as needed (abdominal cramping) for up to 30 days. pancrelipas 2021- No 2{capsu Q.82814088 Take 2 Methodi e, 12-18 le} [id number] capsules st lipase-prot 00:00: 04:59 3D by mouth 3 [facility] 00 :00 (three) l e, (CREON) times a 6,000-19,00 day with 0 -30,000 meals for unit 30 days. capsule,del ayed release(DR/ EC) capsule methocarbam 2021- No 500mg Q.60696177 Take 1 [facility]i oL 12-[id number] (ROBAXIN) 00:00: 04:59 3D (500 mg [facility] 500 MG 00 :00 total) by l tablet mouth 3 (three) times a day as needed (abdominal cramping) for up to 30 days. pancrelipas 2021- No 2{capsu Q.57232203 Take 2 Methodi e, 12-18 le} [id number] capsules st lipase-prot 00:00: 04:59 3D by mouth 3 [facility] 00 :00 (three) l e, (CREON) times a 6,000-19,00 day with 0 -30,000 meals for unit 30 days. capsule,del ayed release(DR/ EC) capsule methocarbam 2021- No 500mg Q.26427543 Take 1 Methodi oL 12-[id number] (ROBAXIN) 00:00: 04:59 3D (500 mg [facility] 500 MG 00 :00 total) by l tablet mouth 3 (three) times a day as needed (abdominal cramping) for up to 30 days. pancrelipas 2021- No 2{capsu Q.00738024 Take 2 Methodi e, 12-18 le} [id number] capsules st lipase-prot 00:00: 04:59 3D by mouth 3 [facility] 00 :00 (three) l e, (CREON) times a 6,000-19,00 day with 0 -30,000 meals for unit 30 days. capsule,del ayed release(DR/ EC) capsule methocarbam 0 2021- No 500mg Q.12183079 Take 1 [facility]i oL 12-[id number] (ROBAXIN) 00:00: 04:59 3D (500 mg [facility] 500 MG 00 :00 total) by l tablet mouth 3 (three) times a day as needed (abdominal cramping) for up to 30 days. pancrelipas 2021-2021- No 2{capsu Q.[id number] Take 2 Methodi e, 12-18 le} [id number] capsules st lipase-prot 00:00: 04:59 3D by mouth 3 [facility] 00 :00 (three) l e, (CREON) times a 6,000-19,00 day with 0 -30,000 meals for unit 30 days. capsule,del ayed release(DR/ EC) capsule methocarbam 2021- No 500mg Q.20523835 Take 1 Methodi oL 12-[id number] (ROBAXIN) 00:00: 04:59 3D (500 mg [facility] 500 MG 00 :00 total) by l tablet mouth 3 (three) times a day as needed (abdominal cramping) for up to 30 days. pancrelipas 2021- No 2{capsu Q.33467954 Take 2 Methodi e, 12-18 le} [id number] capsules st lipase-prot 00:00: 04:59 3D by mouth 3 [facility] 00 :00 (three) l e, (CREON) times a 6,000-19,00 day with 0 -30,000 meals for unit 30 days. capsule,del ayed release(DR/ EC) capsule methocarbam 0 2021- No 500mg Q.03418990 Take 1 Methodi oL 12-[id number] (ROBAXIN) 00:00: 04:59 3D (500 mg [facility] 500 MG 00 :00 total) by l tablet mouth 3 (three) times a day as needed (abdominal cramping) for up to 30 days. pancrelipas 2021- No 2{capsu Q.03415447 Take 2 Methodi e, 12-18 le} [id number] capsules st lipase-prot 00:00: 04:59 3D by mouth 3 [facility] 00 :00 (three) l e, (CREON) times a 6,000-19,00 day with 0 -30,000 meals for unit 30 days. capsule,del ayed release(DR/ EC) capsule methocarbam No 500mg Q.83952762 Take 1 Methodi oL 12-[id number] (ROBAXIN) 00:00: 04:59 3D (500 mg [facility] 500 MG 00 :00 total) by l tablet mouth 3 (three) times a day as needed (abdominal cramping) for up to 30 days. HYDROcodone 2021- No [id number] 1{tbl} Q6H Take 1 [facility] -acetaminop 12-[address] [facility] (edenes) 00:00: 00:00 mouth [facility] 10-325 mg 00 :00 every 6 l per tablet (six) hours as needed for severe pain for up to 10 days .acute pain. Max Daily Amount: 4 tablets HYDROcodone 2021- No [id number] 1{tbl} Q6H Take 1 [facility] -acetaminop 12-[address] [facility] (edenes) 00:00: 00:00 mouth [facility] 10-325 mg 00 :00 every 6 l per tablet (six) hours as needed for severe pain for up to 10 days .acute pain. Max Daily Amount: 4 tablets [place]Ocodone 2021-20[place] [id number] 1{tbl} Q6H Take 1 [facility] -acetaminop 12-[address] [facility] ([facility]) 00:00: 00:00 [facility] 10-325 mg 00 :00 every 6 l per tablet (six) hours as needed for severe pain for up to 10 days .acute pain. Max Daily Amount: 4 tablets HYDROcodone 2021-0 2021- No 1{tbl} Q6H Take 1 [facility] -acetaminop 12-[address] [facility] ([facility]) 00:00: 00:00 [facility] [facility] 10-325 mg 00 :00 every 6 l per tablet (six) hours as needed for severe pain for up to 10 days .acute pain. Max Daily Amount: 4 tablets HYDROcodone 2021-0 2021- No 1{tbl} Q6H Take 1 [facility] -acetaminop 12-[address] [facility] (edenes) 00:00: 00:00 mouth [facility] 10-325 mg 00 :00 every 6 l per tablet (six) hours as needed for severe pain for up to 10 days .acute pain. Max Daily Amount: 4 tablets HYDROcodone 2021-0 2021- 1{tbl} Q6H Take 1 [facility] -acetaminop 12-[address] [facility] (edenes) 00:00: 00:00 mouth [facility] 10-325 mg 00 :00 every 6 l per tablet (six) hours as needed for severe pain for up to 10 days .acute pain. Max Daily Amount: 4 tablets HYDROcodone 2021-0 2021- No 1{tbl} Q6H Take 1 [facility] -acetaminop 12-[address] [facility] (edenes) 00:00: 00:00 mouth [facility] 10-325 mg 00 :00 every 6 l per tablet (six) hours as needed for severe pain for up to 10 days .acute pain. Max Daily Amount: 4 tablets HYDROcodone 2021-0 2021- No 1{tbl} Q6H Take 1 [facility] -acetaminop 12-[address] [facility] (edenes) 00:00: 00:00 mouth [facility] 10-325 mg 00 :00 every 6 l per tablet (six) hours as needed for severe pain for up to 10 days .acute pain. Max Daily Amount: 4 tablets HYDROcodone 2-0 2021- No 1{tbl} Q6H Take 1 [facility] -acetaminop 12-[address] [facility] (edenes) 00:00: 04:59 mouth [facility] 10-325 mg 00 :00 every 6 l per tablet (six) hours as needed for severe pain for up to 10 days .acute pain. Max Daily Amount: 4 tablets riFAXimin 2021- Yes 550mg Q.5D Take 1 Metho di (XIFAXAN) 8- tablet st 550 mg 14:06: (550 mg Hosp[facility] tablet 05 total) by l mouth 2 (two) times a day. pantoprazol 2021- No 40mg QD Take 1 Met hodi e 8-04 12-25 tablet (40 st (PROTONIX) 14:06: 00:00 [...] 12-04- le} capsule by st (ZINCATE) 00:00: 00:00 mouth [facility] 50 mg zinc 00 :00 daily for l (220 mg) 30 days. capsule zinc 2021- No 1{capsu QD Take 1 [facility] sulfate 12-04- le} capsule by st (ZINCATE) 00:00: 00:00 [...] Q.5D Take 1 Met hodi one -03 01-26 tablet (50 st (ALDACTONE) 00:00: 00:00 mg [...] times a day for 30 days. pantoprazol 2-0 2022- No 40mg QD Take 1 Met [...] a day for 30 days. sucralfate 2021-0 2- No 1g Q.25D Take 10 mL Methodi [...] times a day for 30 days. pantoprazol 2-0 2022- No 40mg QD Take 1 Met [...] day) for up to 30 days. pantoprazol 2021-0 2- No 40mg [...] 2021- No 40mg Q.5D Take 1 Meth diimtri (Lasix) 40 12-03 tablet (40 st mg [...] e 12-03- tablet (40 st (PROTONIX) 00:00: 04:59 mg total) H ospita 40 MG EC 00 :00 by mouth l tablet daily for 30 days. spironolact 2021-0 2021- No 50mg Q.5D Take 1 Met hodi one -25 -25 tablet (50 st (ALDACTONE) 00:00: 04:59 mg [...] vomiting for up to 30 days. sucralfate No 1g Q.25D Take 10 mL [facility] (CARAFATE) 12-03 ([address] 100 mg/mL 00:00: 04:59 total) by Ho [facility] suspension 00 :00 mouth 4 l (four) times a day before meals and nightly [place] 30 [place] [id number] 1{tbl} Q6H Take 1 [facility] -acetaminop 8-25 - tablet by [facility] (edenes) 00:00: 00:00 mouth [facility] 10-325 mg 00 :00 every 6 l per tablet (six) hours as needed for severe pain for up to 10 days .acute pain. Max Daily Amount: 4 tablets HYDROcodone 2021-0 2021- [place] [id number] 1{tbl} Q6H Take 1 [facility] -acetaminop 8-25 - tablet by st [facility]) 00:00: 00:00 mouth [facility] 10-325 mg 00 :00 every 6 l per tablet (six) hours as needed for severe pain for up to 10 days .acute pain. Max Daily Amount: 4 tablets HYDROcodone 2021-0 2021- No [id number] 1{tbl} Q6H Take 1 [facility] -acetaminop 8-25 -[address] [facility] (edenes) 00:00: 00:00 mouth [facility] 10-325 mg 00 :00 every 6 l per tablet (six) hours as needed for severe pain for up to 10 days .acute pain. Max Daily Amount: 4 tablets HYDROcodone 2021-0 2021- [place] [id number] 1{tbl} Q6H Take 1 [facility] -acetaminop 8-25 - tablet by [facility]) 00:00: 00:00 mouth [facility] 10-325 mg 00 :00 every 6 l per tablet (six) hours as needed for severe pain for up to 10 days .acute pain. Max Daily Amount: 4 tablets HYDROcodone 2-0 2021- No [id number] 1{tbl} Q6H Take 1 [facility] -acetaminop 8-25 -[address] [facility] ([employer]) 00:00: 00:00 mouth [facility] 10[facility]325 mg 00 :00 every 6 l per tablet (six) hours as needed for severe pain for up to 10 days .acute pain. Max Daily Amount: 4 tablets HYDROcodone 2021-0 2021- No [id number] 1{tbl} Q6H Take 1 [facility] -acetaminop 8-25 - tablet [facility] (edenes) 00:00: 00:00 mouth [facility] 10-325 mg 00 :00 every 6 l per tablet (six) hours as needed for severe pain for up to 10 days .acute pain. Max Daily Amount: 4 tablets HYDROcodone 2021-0 2021- No [id number] 1{tbl} Q6H Take 1 [facility] -acetaminop 8-25 - tablet [facility] (edenes) 00:00: 00:00 mouth [facility] 10-325 mg 00 :00 every 6 l per tablet (six) hours as needed for severe pain for up to 10 days .acute pain. Max Daily Amount: 4 tablets HYDROcodone 2021-0 2021- [place] [id number] 1{tbl} Q6H Take 1 [facility] -acetaminop 8-25 - tablet [facility] (edenes) 00:00: 00:00 mouth [facility] 10-325 mg 00 :00 every 6 l per tablet (six) hours as needed for severe pain for up to 10 days .acute pain. Max Daily Amount: 4 tablets HYDROcodone 2-0 2021- No [id number] 1{tbl} Q6H Take 1 [facility] -acetaminop 8-25 -[address] [facility] (edenes) 00:00: 00:00 mouth [facility] 10-325 mg 00 :00 every 6 l per tablet (six) hours as needed for severe pain for up to 10 days .acute pain. Max Daily Amount: 4 tablets HYDROcodone 2-0 2021- No [id number] 1{tbl} Q6H Take 1 [facility] -acetaminop 8-25 09-[address] [facility] (NORCO) 00:00: 04:59 mouth [facility] 10-325 mg 00 :00 every 6 l per tablet (six) hours as needed for severe pain for up to 10 days .acute pain. Max Daily Amount: 4 tablets pancrelipas 2021-2021- No 1{capsu Q.15958196 Take 1 Methodi e, 8-18 08-18 le} [id number] capsule by st lipase-prot 20:41: 00:00 3D mouth 3 Ho [facility] ease-amylas 22 :00 (three) l e, (CREOND) times a 12,000-38,0 day with 00 -60,000 meals. unit capsule,del ayed release(DR/ EC) capsule pancrelipas 2021-2021- No 1{capsu Q.09797197 Take 1 Methodi e, 8-18 08-18 le} [id number] capsule by st lipase-prot 20:41: 00:00 3D mouth 3 [facility] ease-amylas 22 :00 (three) l e, (CREOND) times a 12,000-38,0 day with 00 -60,000 meals. unit capsule,del ayed release(DR/ EC) capsule pancrelipas 2021-2- No 1{capsu Q.85446138 Take 1 Methodi e, 8-18 08-18 le} [id number] capsule by st lipase-prot 20:41: 00:00 3D mouth 3 [facility] ease-amylas 22 :00 (three) l e, (CREOND) times a 12,000-38,0 day with 00 -60,000 meals. unit capsule,del ayed release(DR/ EC) capsule pancrelipas 2021-2021- No 1{capsu Q.24516118 Take 1 Methodi e, 8-18 08-18 le} [id number] capsule by st lipase-prot 20:41: 00:00 3D mouth 3 [facility] ease-amylas 22 :00 (three) l e, (CREOND) times a 12,000-38,0 day with 00 -60,000 meals. unit capsule,del ayed release(DR/ EC) capsule pancrelipas 2021-2- No 1{capsu Q.39167592 Take 1 Methodi e, 8 08-18 le} [id number] capsule by st lipase-prot 20:41: 00:00 3D mouth 3 [facility] ease-amylas 22 :00 (three) l e, (CREOND) times a 12,000-38,0 day with 00 -60,000 meals. unit capsule,del ayed release(DR/ EC) capsule pancrelipas 2-0 2- No 1{capsu Q.88291218 Take 1 Methodi e, 8 08-18 le} [id number] capsule by st lipase-prot 20:41: 00:00 3D mouth 3 [facility] ease-amylas 22 :00 (three) l e, (CREOND) times a 12,000-38,0 day with 00 -60,000 meals. unit capsule,del ayed release(DR/ EC) capsule pancrelipas 2-0 2- No 1{capsu Q.89869043 Take 1 Methodi e, 8 08-18 le} [id number] capsule by st lipase-prot 20:41: 00:00 3D mouth 3 [facility] ease-amylas 22 :00 (three) l e, (CREOND) times a 12,000-38,0 day with 00 -60,000 meals. unit capsule,del ayed release(DR/ EC) capsule pancrelipas 2-0 2- No 1{capsu Q.88261943 Take 1 Methodi e, 11-26 08-18 le} [id number] capsule by st lipase-prot 20:41: 00:00 3D mouth 3 [facility] ease-amylas 22 :00 (three) l e, (CREOND) times a 12,000-38,0 day with 00 -60,000 meals. unit capsule,del ayed release(DR/ EC) capsule pancrelipas 2-0 2- No 1{capsu Q.[id number] Take 1 Methodi e, 8- 08-18 le} [id number] capsule by st lipase-prot 20:41: 00:00 3D mouth 3 [facility] ease-amylas 22 :00 (three) l e, (CREOND) times a 12,000-38,0 day with 00 -60,000 meals. unit capsule,del ayed release(DR/ EC) capsule pancrelipas 2021- No 1{capsu Q.[id number] Take 1 Methodi e, 8- 08-18 le} [id number] capsule by st lipase-prot 20:41: 00:00 3D mouth 3 [facility] ease-amylas 22 :00 (three) l e, (CREOND) times a 12,000-38,0 day with 00 -60,000 meals. unit capsule,del ayed release(DR/ EC) capsule spironolact 2021-2021- No 25mg QD Take 25 mg [facility] one 7-18 -[address] (ALDACTONE) 14:44: 00:00 daily. [facility] 25 MG 06 :00 l tablet furosemide 2021-2021- No 20mg QD Take 20 mg [facility]i (LASIX) 20 7- 07-[address] mg tablet 14:44: 00:00 daily. Hospi ta 06 :00 l spironolact 2021-0 2021- No 25mg QD Take [...] Hospi ta 06 :00 l spironolact 2021-0 2021- No 25mg QD Take 25 mg Methodi one 10-26-[address] (ALDACTONE) 14:44: 00:00 daily. Hos [facility] 25 MG 06 :00 l tablet furosemide 0 2021- No 20mg QD Take 20 mg [facility] (LASIX) 20 10-26-[address] mg tablet 14:44: 00:00 daily. Hospi ta 06 :00 l spironolact 2021-0 2021- No 50mg Q.5D Take [...] Branch tablet 09/29/21 at 0100, VERN naproxen 2021-0 2021- No 500mg 500 mg, Univ ers (NAPROSYN) 09-29 Oral, ity of tablet 500 06:00: 04:58 ONCE, 1 [facility] [place] mg 00 :00 dose, On Medical Tue Branch 09/29/21 at 0100, Routine naproxen 2021-0 Yes [id number] 500mg Take 1 [facility] (NAPROSYN) 6-20 9104 tablet by ity of 500 mg 00:00: mouth 2 [place] tablet 00 (two) Medical times Branch daily with meals. naproxen 2021-0 Yes [id number] 500mg Take 1 [facility] (NAPROSYN) 6-20 9104 tablet by ity of 500 mg 00:00: mouth 2 [place] tablet 00 (two) Medical times Branch daily with meals. naproxen 2021-0 Yes [id number] 500mg Take 1 [facility] (NAPROSYN) 6-20 9104 tablet by ity of 500 mg 00:00: mouth 2 [place] tablet 00 (two) Medical times Branch daily with meals. naproxen 2021-0 Yes [id number] 500mg Take 1 [facility] (NAPROSYN) 6-20 9104 tablet by ity of 500 mg 00:00: mouth 2 [place] tablet 00 (two) Medical times Branch daily with meals. naproxen 2021-0 Yes [id number] 500mg Take 1 [facility] (NAPROSYN) 6-20 9104 tablet by ity of 500 mg 00:00: mouth 2 [place] tablet 00 (two) Medical times Branch daily with meals. naproxen 2022-0 Yes [id number] 500mg Take 1 [facility] (NAPROSYN) 6-20 9104 tablet by ity of 500 mg 00:00: mouth 2 [place] tablet 00 (two) Medical times Branch daily with meals. naproxen 2-0 Yes [id number] 500mg Take 1 [facility] (NAPROSYN) 6-20 9104 tablet by ity of 500 mg 00:00: mouth 2 [place] tablet 00 (two) Medical times Branch daily with meals. naproxen Yes [id number] 500mg Take 1 [facility] (NAPROSYN) 6-20 9104 [...] 04/02/21 at 1445, VERN ondansetron 2020-04 Yes [id number] 4mg Take 1 [facility] 4 mg 2-23 tablet by ity of disintegrat 00:00: mouth [place] ing tablet 00 every 8 Medica l (eight) Branch hours as needed for Nausea and Vomiting (N/V). ondansetron 2020-04 Yes [id number] 4mg Take 1 [facility] 4 mg 2-23 tablet by ity of disintegrat 00:00: mouth [place] ing tablet 00 every 8 Medica l (eight) Branch hours as needed for Nausea and Vomiting (N/V). ondansetron 2020-04 Yes [id number] 4mg Take 1 [facility] 4 mg 2-23 tablet by ity of disintegrat 00:00: mouth [place] ing tablet 00 every 8 Medica l (eight) Branch hours as needed for Nausea and Vomiting (N/V). ondansetron 2020-04 Yes [id number] 4mg Take 1 [facility] 4 mg 2-23 tablet by ity of disintegrat 00:00: mouth [place] ing tablet 00 every 8 Medica l (eight) Branch hours as needed for Nausea and Vomiting (N/V). ondansetron 2020-04 Yes [id number] 4mg Take 1 [facility] 4 mg 2-23 tablet by ity of disintegrat 00:00: mouth [place] ing tablet 00 every 8 Medica l (eight) Branch hours as needed for Nausea and Vomiting (N/V). ondansetron 2020-04 Yes [id number] 4mg Take 1 [facility] 4 mg 2-23 tablet by ity of disintegrat 00:00: mouth [place] ing tablet 00 every 8 Medica l (eight) Branch hours as needed for Nausea and Vomiting (N/V). ondansetron 2020-04 Yes [id number] 4mg Take 1 [facility] 4 mg 2-23 tablet by ity of disintegrat 00:00: mouth [place] ing tablet 00 every 8 Medica l (eight) Branch hours as needed for Nausea and Vomiting (N/V). ondansetron 2020-04 Yes [id number] 4mg Take 1 [facility] 4 mg 2-23 tablet by ity of disintegrat 00:00: mouth [place] ing tablet 00 every 8 Medica l (eight) Branch hours as needed for Nausea and Vomiting (N/V). ondansetron 2020-04 Yes [id number] 4mg Take 1 [facility] 4 mg 2-23 tablet by ity of disintegrat 00:00: mouth [place] ing tablet 00 every 8 Medica l (eight) Branch hours as needed for Nausea and Vomiting (N/V). ondansetron 2020-04 Yes [id number] 4mg Take 1 [facility] 4 mg 2-23 tablet by ity of disintegrat 00:00: mouth [place] ing tablet 00 every 8 Medica l (eight) Branch hours as needed for Nausea and Vomiting (N/V). ondansetron 2020-04 Yes [id number] 4mg Take 1 [facility] 4 mg 2-23 [...] 296mL Take 1 Meth dimitri citrate -12 -[address] solution 00:00: 00:00 (296 mL [...] 296mL Take 1 Meth dimitri citrate -12 -[address] solution 00:00: 00:00 (296 mL [...] 296mL Take 1 Meth dimitri citrate -12 -[address] solution 00:00: 00:00 (296 mL [...] ion) for up to 1 dose. docusate 2020-04 No 100mg Q.5D Take 1 Metho di sodium 04-22 12-[address] (Colace) 00:00: 05:59 (100 mg Hospi ta 100 MG 00 :00 total) by l capsule mouth 2 (two) times a day for 30 days. docusate 2020-04 No 100mg Q.5D Take 1 Metho di sodium - 12-[address] (Colace) 00:00: 05:59 (100 mg Hospi ta 100 MG 00 :00 total) by l capsule mouth 2 (two) times a day for 30 days. docusate 2020-04 No 100mg Q.5D Take 1 Metho di [...] 3 soft stools per day). lactulose 2020-0 2021- No 20g Q24H Take 30 mL [...] soft stools per day). cholecalcif 2020- No [id number] 2000U Take 2 [facility] nuno, 6-26 07-27 tablets by ity of vitamin D3, 00:00: 04:59 mouth [place] 25 mcg 00 :00 daily for Medical (1,000 30 days. Branch unit) tablet cyanocobala 2020- No [id number] 1000ug inject 1 [facility] min 1,000 6-26 07-27 mL under ity o f mcg/mL 00:00: 04:59 the skin [place] injection 00 :00 every 24 Medica l (twenty-fo Branch ur) hours for 30 days. KCL 20 mEq 2020- No [id number] 20meq Take 1 [facility] tablet 6-26 07-27 tablet by ity of 00:00: 04:59 mouth [place] 00 :00 daily for Medical 30 days. Branch cholecalcif 2020- No [id number] 2000U Take 2 [facility] nuno, 6-26 07-27 tablets by ity of vitamin D3, 00:00: 04:59 mouth [place] 25 mcg 00 :00 daily for Medical (1,000 30 days. Branch unit) tablet cyanocobala 2020- No [id number] 1000ug inject 1 [facility] min 1,000 6-26 07-27 mL under ity o f mcg/mL 00:00: 04:59 the skin [place] injection 00 :00 every 24 Medica l (twenty-fo Branch ur) hours for 30 days. KCL 20 mEq 2020- No [id number] 20meq Take 1 [facility] tablet 6-26 07-27 tablet by ity of 00:00: 04:59 mouth [place] 00 :00 daily for Medical 30 days. Branch lactulose Yes 30mL Take 30 mL Un marline 10 gram/15 6-25 by mouth ity o f mL oral 18:10: daily. [place] solution 25 Medical Branch pantoprazol Yes 40mg Take 40 mg Univers e 6-25 by mouth ity of (PROTONIX) 18:10: daily. [place] 40 mg EC 25 Medical tablet Branch lactulose Yes 30mL Take 30 mL Un marline 10 gram/15 6-25 by mouth ity o f mL oral 18:10: daily. [place] solution 25 Medical Branch pantoprazol Yes 40mg Take 40 mg Univers e 6-25 by mouth ity of (PROTONIX) 18:10: daily. [place] 40 mg EC 25 Medical tablet Branch lipase/prot 2020- No Take by Un marline ease/amylas 6-25 06-25 mouth. ity o f e (CREON 10 16:09: 00:00 [place] ORAL) 48 :00 Medical Branch furosemide 2020-0 2020- No 40mg Take 40 mg Univers (LASIX) 40 6-25 06-25 by mouth ity of mg tablet 16:09: 00:00 every [place] 48 :00 morning Medical and Branch evening. lactulose 0 Yes 30mL Take 30 mL [...] unresponsi ve to Ondansetro n proMETHazin Yes [id number] 12.5mg Take 1 Univers e 12.5 mg 6-25 tablet by ity o f tablet 00:00: mouth [place] 00 every 6 Medical (six) Branch hours as needed for Nausea and Vomiting (N/V) or N/V unresponsi ve to Ondansetro n. proMETHazin Yes [id number] 12.5mg Take 1 Univers e 12.5 mg 6-25 tablet by ity o f tablet 00:00: mouth [place] 00 every 6 Medical (six) Branch hours as needed for Nausea and Vomiting (N/V) or N/V unresponsi ve to Ondansetro n. proMETHazin Yes [id number] 12.5mg Take 1 Univers e 12.5 mg 6-25 tablet by ity o f tablet 00:00: mouth [place] 00 every 6 Medical (six) Branch hours as needed for Nausea and Vomiting (N/V) or N/V unresponsi ve to Ondansetro n. proMETHazin Yes [id number] 12.5mg Take 1 Univers e 12.5 mg 6-25 tablet by ity o f tablet 00:00: mouth [place] 00 every 6 Medical (six) Branch hours as needed for Nausea and Vomiting (N/V) or N/V unresponsi ve to Ondansetro n. proMETHazin Yes [id number] 12.5mg Take 1 Univers e 12.5 mg 6-25 tablet by ity o f tablet 00:00: mouth [place] 00 every 6 Medical (six) Branch hours as needed for Nausea and Vomiting (N/V) or N/V unresponsi ve to Ondansetro n. proMETHazin Yes [id number] 12.5mg Take 1 Univers e 12.5 mg 6-25 tablet by ity o f tablet 00:00: mouth [place] 00 every 6 Medical (six) Branch hours as needed for Nausea and Vomiting (N/V) or N/V unresponsi ve to Ondansetro n. proMETHazin Yes [id number] 12.5mg Take 1 Univers e 12.5 mg 6-25 tablet by ity o f tablet 00:00: mouth [place] 00 every 6 Medical (six) Branch hours as needed for Nausea and Vomiting (N/V) or N/V unresponsi ve to Ondansetro n. proMETHazin Yes [id number] 12.5mg Take 1 Univers e 12.5 mg 6-25 tablet by ity o f tablet 00:00: mouth [place] 00 every 6 Medical (six) Branch hours as needed for Nausea and Vomiting (N/V) or N/V unresponsi ve to Ondansetro n. proMETHazin Yes [id number] 12.5mg Take 1 Univers e 12.5 mg 6-25 tablet by ity o f tablet 00:00: mouth [place] 00 every 6 Medical (six) Branch hours as needed for Nausea and Vomiting (N/V) or N/V unresponsi ve to Ondansetro n. proMETHazin Yes [id number] 12.5mg Take 1 Univers e 12.5 mg 6-25 tablet by ity o f tablet 00:00: mouth [place] 00 every 6 Medical (six) Branch hours as needed for Nausea and Vomiting (N/V) or N/V unresponsi ve to Ondansetro n. proMETHazin Yes [id number] 12.5mg Take 1 Univers e 12.5 mg 6-25 tablet by ity o f tablet 00:00: mouth [place] 00 every 6 Medical (six) Branch hours as needed for Nausea and Vomiting (N/V) or N/V unresponsi ve to Ondansetro n. proMETHazin Yes [id number] 12.5mg Take 1 Univers e 12.5 mg 6-25 tablet by ity o f tablet 00:00: mouth [place] 00 every 6 Medical (six) Branch hours as needed for Nausea and Vomiting (N/V) or N/V unresponsi ve to Ondansetro n. proMETHazin Yes [id number] 12.5mg Take 1 Univers e 12.5 mg 6-25 tablet by ity o f tablet 00:00: mouth [place] 00 every 6 Medical (six) Branch hours as needed for Nausea and Vomiting (N/V) or N/V unresponsi ve to Ondansetro n. proMETHazin Yes [id number] 12.5mg Take 1 Univers e 12.5 mg 6-25 tablet by ity o f tablet 00:00: mouth [place] 00 every 6 Medical (six) Branch hours as needed for Nausea and Vomiting (N/V) or N/V unresponsi ve to Ondansetro n. proMETHazin Yes [id number] 12.5mg Take 1 Univers e 12.5 mg 6-25 tablet by ity o f tablet 00:00: mouth [place] 00 every 6 Medical (six) Branch hours as needed for Nausea and Vomiting (N/V) or N/V unresponsi ve to Ondansetro n. proMETHazin Yes [id number] 12.5mg Take 1 Univers e 12.5 mg 6-25 tablet by ity o f tablet 00:00: mouth [place] 00 every 6 Medical (six) Branch hours as needed for Nausea and Vomiting (N/V) or N/V unresponsi ve to Ondansetro n. furosemide No [id number] 40mg Take 1 [facility] 40 mg 6-25 07-26 tablet by ity of tablet 00:00: 04:59 mouth [place] 00 :00 every Medical morning Branch and evening for 30 days. lipase-prot 2020- No [id number] 2{capsu Take 2 Univers ease-amylas 6-25 07-26 le} capsules ity of e 00:00: 04:59 by mouth 3 [place] 12,000-38,0 00 :00 (three) Medic al 00 -60,000 times Branch unit daily with capsule meals for 30 days. lactobacill No [id number] .5mg Take 1 Univers us 6-25 07-26 tablet by ity of acidophilus 00:00: 04:59 mouth 2 [place] 00 :00 (two) Medical times Branch daily for 30 days. furosemide No [id number] 40mg Take 1 [facility] 40 mg 6-25 07-26 tablet by ity of tablet 00:00: 04:59 mouth [place] 00 :00 every Medical morning Branch and evening for 30 days. lipase-prot No [id number] 2{capsu Take 2 Univers ease-amylas 6-25 07-26 le} capsules ity of e 00:00: 04:59 by mouth 3 [place] 12,000-38,0 00 :00 (three) Medic al 00 -60,000 times Branch unit daily with capsule meals for 30 days. lactobacill No [id number] .5mg Take 1 Univers us 6-25 07-26 tablet by ity of acidophilus 00:00: 04:59 mouth 2 [place] 00 :00 (two) Medical times Branch daily for 30 days. vancomycin No [id number] 125mg Take 1 [facility] 125 mg 6-25 07-06 capsule by ity of capsule 00:00: 04:59 mouth 4 [place] 00 :00 (four) Medical times Branch daily for 10 days. vancomycin 2020- No [id number] 125mg Take 1 Univers 125 mg 6-25 - capsule by ity of capsule 00:00: 04:59 mouth 4 [place] 00 :00 (four) Medical times Branch daily for 10 days. HYDROcodone 2020- No [id number] 1{tbl} Take 1 U nivers -acetaminop 6-25 -03 tablet by it y of hen 5-325 [...] Indication s: acute pain cephALEXin 2020- No [id number] 500mg Take 1 [facility] 500 mg 6-25 - capsule by ity of capsule 00:00: 04:59 mouth 4 [place] 00 :00 (four) Medical times Branch daily for 5 days. cephALEXin 2020- No [id number] 500mg Take 1 [facility] 500 mg 6-25 - capsule by ity of capsule 00:00: 04:59 mouth 4 [place] 00 :00 (four) Medical times Branch daily [...] 0.5 mg-3 59 Starting Medical mg(2.5 mg Wed Branch base)/3 mL 10/01/20 at nebulizer 0951, [...] dose [place] mg 00 on [facility] Medical 09/30/20 at Branch 1615, Until Discontinu [...] 00 First dose Medical injection on Tue 1,000 mcg 09/30/20 at 0945, Until Discontinu ed, Routine zolpidem Yes 2.5mg 2.5 mg, Unive rs (AMBIEN) 09-30 Oral, ity of tablet 2.5 03:51: QHSPRN, [place] mg 57 Starting Medical [facility] Branch 09/29/20 at 2251, Until Discontinu ed, Routine, Insomnia D5W 0.45% 2020- No IV Univers NaCl 09-29 Infusion, ity of (1/2NS) 1 L 21:00: 21:15 at 100 [facility] as + KCL 20 00 :40 mL/hr, Medical mEq CONTINUOUS Branch , Starting Tue09/29/20 at 1600, Until Tue09/30/20 at 1615, Routine cholecalcif Yes 2000U 2,000 [facility] ers nuno 09-29 Units, ity of (vitamin 20:00: Oral, [place] D3) tablet 00 DAILY, Medical 2,000 Units First dose Br anch on Tue09/29/20 at 1500, Until Discontinu ed, Routine lactobacill 0 Yes .5mg 0.5 mg, Uni vers us 09-29 Oral, BID, ity of acidophilus 14:15: First dose [place] tablet 0.5 00 on [facility] Medical mg 09/29/20 at Branch 0915, Until Discontinu ed, Routine KCL 2020-0 Yes 20meq 20 mEq, Univers (KLOR-CON 09-29 Oral, ity of M20) tablet 14:00: DAILY, [place] 20 mEq 00 First dose Medical (after Branch last reorder) on Tue09/29/20 at 0900, Until Discontinu ed, Routine lipase-prot 2020-0 Yes 2{capsu 2 capsule, Univers ease-amylas 09-29 [...] 7-10) piperacilli 2020- No 3.375g 3.375 g, [facility] n-tazobacta 09-29 IV ity of m (ZOSYN) [...] :00 ONCE, 1 Medical 50 mcg dose, [facility] Branch 09/29/20 at 0230, Routine piperacilli 2020- No 3.375g 3.375 g, Univers n-tazobacta 09-29 IV ity of m (ZOSYN) 07:30: 07:00 Piggyback, [place] 3.375 g in 00 :00 ONCE, 1 Medica l [facility]/29/20 at MINI-BAG 0230, 100 mL
Reas on for Anti-Infec tive: Documented Infection< br>Documen josemanuel Infection Site: Abdominal< br>Duratio n of Therapy: Other (see Comments) pantoprazol 2020- No 40mg 40 mg, IV Univers e 09-29 Piggyback, ity of (PROTONIX) 06:45: 21:11 Q12H, [place] 40 mg in 00 :56 First dose Medic al NaCl 0.9% on [facility] (NS) 100 mL 09/29/20 at MINI-BAG 0145, [...] injection 4 17 Starting Medi molly mg [facility] Branch 09/29/20 at 0142, Until Discontinu ed, Routine, Nausea and Vomiting (N/V) iopamidol 2020- No [id number] 100mL 100 mL, Univers (ISOVUE 09-29 Intravenou [...] Tue09/29/20 at 0138, Routine Meloxicam Meloxicam 2019- 2020- No Gm 1 tablet Common 09-17- [facility] 00:00: 00:00 - [facility] 00 :00 [facility] flu vaccine 2019-0 2020- No .5mL 0.5 mL, Un marline 6 months 08-1002 Intramuscu ity of and up 20:51: 20:54 lar, ONCE, [place] [facility] (FLUZONE 00 :00 1 dose, Medical QUAD 08/11/19 Branch at 1600, (PF)) Routine syringe 0.5 mL lactulose 2019-0 2020- No 30mL Take 30 mL U nivers 10 gram/15 08-10 by mouth 2 it y of mL oral 19:53: 00:00 (two) [place] solution 33 :00 times Medical daily. Branch iohexol 2019-0 2020- No 120mL 120 mL, Unive rs (OMNIPAQUE 5-02 05-02 Intravenou it y of 350 15:00: 14:46 [...] for Pain (scale 4-6). acetaminoph 2020-0 Yes [id number] 1{tbl} Take 1 Univers en-codeine 5-02 tablet by ity of 300-30 mg 00:00: mouth [place] tablet 00 every 4 Medical (four) Branch hours as needed for Pain (scale 4-6). acetaminoph 2020-0 Yes [id number] 1{tbl} Take 1 Univers en-codeine 5-02 tablet by ity of 300-30 mg 00:00: mouth [place] tablet 00 every 4 Medical (four) Branch hours as needed for Pain (scale 4-6). acetaminoph 2020-0 Yes [id number] 1{tbl} Take 1 Univers en-codeine 5-02 tablet by ity of 300-30 mg 00:00: mouth [place] tablet 00 every 4 Medical (four) Branch hours as needed for Pain (scale 4-6). acetaminoph 2020-0 Yes [id number] 1{tbl} Take 1 Univers en-codeine 5-02 tablet by ity of 300-30 mg 00:00: mouth [place] tablet 00 every 4 Medical (four) Branch hours as needed for Pain (scale 4-6). acetaminoph 2020-0 Yes [id number] 1{tbl} Take 1 Univers en-codeine 5-02 tablet by ity of 300-30 mg 00:00: mouth [place] tablet 00 every 4 Medical (four) Branch hours as needed for Pain (scale 4-6). acetaminoph 2020-0 Yes [id number] 1{tbl} Take 1 Univers en-codeine 5-02 tablet by ity of 300-30 mg 00:00: mouth [place] tablet 00 every 4 Medical (four) Branch hours as needed for Pain (scale 4-6). lactulose 2019-0 2020- No [id number] 30mL Take 30 mL Univers 10 gram/15 5-05 17- by mouth 2 it y of mL oral 00:00: 04:59 (two) [place] solution 00 :00 times Medical daily for Branch 30 days. pantoprazol 2020-0 2020- No [id number] 40mg Take 1 Univers e 40 mg EC 5-05 17- tablet by ity of tablet 00:00: 04:59 mouth [place] 00 :00 daily for Medical 30 days. Branch lactulose 2020-0 2020- No [id number] 30mL Take 30 mL Univers 10 gram/15 5-02 06-02 by mouth 2 it y of mL oral 00:00: 04:59 (two) [place] solution 00 :00 times Medical daily for Branch 30 days. pantoprazol 2020-0 2020- No [id number] 40mg Take 1 Univers e 40 mg EC 08-10 tablet by ity of tablet 00:00: 04:59 mouth [place] 00 :00 daily for Medical 30 days. Branch propranolol 2019-0 2020- No [id number] 10mg Take 1 Univers 10 mg 08-10 [...] Until Discontinu ed, 100 mL LORazepam 2019-0 2019- No .25mg 0.25 mg, Un marline (ATIVAN) 08-09 Slow IV ity of injection 11:00: 11:00 Push, [place] 0.25 mg 00 :00 ONCE, 1 Medical dose, Fri Branch 08/10/19 at 0600, Routine D5W-LR IV 2020-0 Yes 1000mL at 100 Univ ers infusion 5-01 mL/hr, IV ity of 1,000 mL 10:30: [place] 00 CONTINUOUS Medical , Starting Branch Tue08/10/19 at 0530, Until Discontinu ed, Routine FENTanyl PF 2020-0 Yes 50ug 50 mcg, Uni vers (SUBLIMAZE 5-01 Slow IV ity of (PF)) 09:22: Push, [place] injection 46 Q4HPRN, Medical 50 mcg Starting Branch Tue08/10/19 at 0422, Until Discontinu ed, Routine, Pain (scale 4-6) ondansetron 2019- No 4mg 4 mg, Slow Univers (ZOFRAN 5- 05-02 IV Push, ity of (PF)) 08:55: 03:29 Q6HPRN, [place] injection 4 07 :20 Starting Medi molly mg Tue08/10/19 Branch at 0355, Until 08/10/19 at 2229, Routine, Nausea and Vomiting (N/V) [...] Sodium e Sodium Singh defined Spir it [facility] Acetaminoph Acetaminoph Yes Gm not Common en-Codeine en-Codeine Singh defined [facility] #3 #3 [facility] Oseltamivir Oseltamivir Yes Gm not Common Phosphate Phosphate Singh defined Sp cleopatra [facility] Levofloxaci Levofloxaci Yes Gm not Common n n Singh defined [facility] Xifaxan Xifaxan Yes Gm not Common Singh defined [facility] Lactulose Lactulose Yes Gm not Co mmon Singh defined [facility] Albuterol Albuterol Yes Gm not Co mmon Sulfate HFA Sulfate HFA Singh defined [facility] Azithromyci Azithromyci Yes Gm not Common n n Singh defined [facility] Amoxicillin Amoxicillin Yes Gm not Common -Pot -Pot Singh defined [facility] Clavulanate Clavulanate [facility] Immunizations Ordered Immunization Filled Immunization Date Status Commen ts Source Name Name FLUCELVAX QUAD 2021-12-[address] [facility] FLUCELVAX QUAD 2021-12-[address] 00:[facility]:00 Hospital FLUCELVAX QUAD 2021-12-[address] 00:00:00 [facility] FLUCELVAX QUAD 2021-12-[address] 00:00:00 [facility] FLUCELVAX QUAD 2021-12-[address] [...] [facility] 00:[facility]:00 Hospital Pneumococcal 2020-10-03 Completed [facility] Polysaccharide 00:00:00 Hospital Pneumococcal 2020-10-03 Completed [facility] Polysaccharide 00:00:00 [facility] Pneumococcal 2020-10-03 Completed [facility] Polysaccharide 00:00:00 [facility] Pneumococcal 2020-10-03 Completed [facility] Polysaccharide 00:00:00 [facility] Pneumococcal 2020-10-03 Completed [facility] Polysaccharide 00:00:00 [facility] Pneumococcal 2020-10-03 Completed [facility] Polysaccharide 00:00:00 Hospital Pneumococcal 2020-10-03 Completed University o [...] 2020-10-03 Completed University o f Polysaccharide, 00:00:00 [place] [facility] PPSV23 (PNEUMOVAX) Branch Pneumococcal 2020-10-03 Completed University o f Polysaccharide, 00:00:00 [place] [facility] ical PPSV23 (PNEUMOVAX) Branch MODERNA COVID-19 [...] Completed Unive rsity of MODERNA VACCINE 00:00:00 [facility] ical Branch SARS-COV-2 COVID-19 2020-08-08 Completed Unive rsity of MODERNA VACCINE 00:00:00 [facility] ical Branch SARS-COV-2 COVID-19 2020-08-08 Completed Unive rsity of MODERNA VACCINE 00:00:00 [facility] ical Branch SARS-COV-2 COVID-19 2020-08-08 Completed [...] Unive rsity of MODERNA VACCINE 00:00:00 [place] [facility] ical Branch SARS-COV-2 COVID-19 2020-08-08 Completed Unive rsity of MODERNA VACCINE 00:00:00 [place] [facility] ical Branch SARS-COV-2 COVID-19 2020-08-08 Completed Unive rsity of MODERNA VACCINE 00:00:00 [place] [facility] ical Branch SARS-COV-2 COVID-19 2020-08-08 Completed [...] YRS 00:00:00 [place] [facility] ical VACCINE Branch MODERNA COVID-19 2020-07-11 Completed [facility] VACCINATION 00:00:00 Hospital MODERNA COVID-19 MRNA 2020-07-11 Completed [facility] VACCINATION 00:00:00 Hospital MODERNA COVID-19 MRNA 2020-07-11 Completed [facility] VACCINATION 00:00:00 Hospital MODERNA COVID-19 MRNA 2020-07-11 Completed [facility] VACCINATION 00:00:00 Hospital MODERNA COVID-19 MRNA 2020-07-11 Completed [facility] VACCINATION 00:00:00 Hospital MODERNA COVID-19 MRNA 2020-07-11 Completed [facility] VACCINATION 00:00:00 Hospital SARS-COV-2 [...] Unive rsity of MODERNA VACCINE 00:00:00 [place] [facility] SARS-COV-2 COVID-19 2020-07-11 Completed Unive rsity of MODERNA VACCINE 00:00:00 [place] [facility] ical Branch SARS-COV-2 COVID-19 2020-07-11 Completed Unive rsity of MODERNA VACCINE 00:00:00 [place] [facility] ical Branch SARS-COV-2 COVID-19 2020-07-11 Completed Unive rsity of MODERNA VACCINE 00:00:00 [place] [facility] ical Branch SARS-COV-2 COVID-19 2020-07-11 Completed Unive rsity of MODERNA VACCINE 00:00:00 [facility] ical Branch SARS-COV-2 COVID-19 2020-07-11 Completed Unive rsity of MODERNA VACCINE 00:00:00 [place] [facility] ical Branch SARS-COV-2 COVID-19 2020-07-11 Completed [...] Unive rsity of MODERNA 12+ YRS 00:00:00 [facility] ical VACCINE Branch FLUZONE QUAD PF 2019-08-11 Completed [facility] 00:00:00 Hospital FLUZONE QUAD PF 2019-08-11 Completed [facility] 00:00:00 Hospital FLUZONE QUAD PF 2019-08-11 Completed [facility] 00:00:00 Hospital FLUZONE QUAD PF 2019-08-11 Completed [facility] 00:00:00 Hospital FLUZONE QUAD PF 2019-08-11 Completed [facility] 00:00:00 Hospital FLUZONE QUAD PF 2019-08-11 Completed [facility] 00:00:00 Hospital Influenza Virus 2019-08-11 Completed Universit y of Vaccine Quad .5 mL IM 00:00:00 [facility] as Medical 6+ MO Branch Influenza Virus 2019-08-11 Completed Universit y of Vaccine Quad .5 mL IM 00:00:00 Qaung as Medical 6+ MO Branch Influenza Virus [...] 6+ MO Branch Influenza (IM) 2018-05-29 Completed [facility] Preservative Free 00:00:00 Hospita l Influenza (IM) 2018-05-29 Completed [facility] Preservative Free 00:00:00 Hospita l Influenza (IM) 2018-05-29 Completed [facility] Preservative Free 00:00:00 Hospita l Influenza (IM) 2018-05-29 Completed [facility] Preservative Free 00:00:00 Hospita l Influenza (IM) 2018-05-29 Completed [facility] Preservative Free 00:00:00 Hospita l Influenza (IM) 2018-05-29 Completed [facility] Preservative Free 00:00:00 Hospita l Influenza (IM) 2017-01-21 Completed [facility] Preservative Free 00:00:00 Hospita l Influenza (IM) 2017-01-21 Completed [facility] Preservative Free 00:00:00 Hospita l Influenza (IM) 2017-01-21 Completed [facility] Preservative Free 00:00:00 Hospita l Influenza (IM) 2017-01-21 Completed [facility] Preservative Free 00:00:00 Hospita l Influenza (IM) 2017-01-21 Completed [facility] Preservative Free 00:00:00 Hospita l Influenza (IM) 2017-01-21 Completed [facility] Preservative Free 00:00:00 Hospita l Influenza (IM) 2016-02-28 Completed [facility] Preservative Free 00:00:00 Hospita l Influenza (IM) 2016-02-28 Completed [facility] Preservative Free 00:00:00 Hospita l Influenza (IM) 2016-02-28 Completed [facility] Preservative Free 00:00:00 Hospita l Influenza (IM) 2016-02-28 Completed [facility] Preservative Free 00:00:00 Hospita l Influenza (IM) 2016-02-28 Completed [facility] Preservative Free 00:00:00 Hospita l Influenza (IM) 2016-02-28 Completed [facility] Preservative Free 00:00:00 Hospita l Vital Signs Vital Name Observation Time Observation Value Comments Source Systolic blood 2022-08-07 07:00:00 128 mm[Hg] Univer sity pressure [facility] Diastolic blood 2022-08-07 07:00:00 78 mm[Hg] Unive rsity of [facility] Heart rate 2022-08-07 07:00:00 77 /min [facility] Respiratory rate 2022-08-07 07:00:00 21 /min Univ ersity of [place] [facility] Oxygen saturation in 2022-08-07 07:00:00 99 /min University of Arterial blood by [place] [employer] molly Pulse oximetry Branch Body temperature 2022-08-07 05:48:00 36.72 Sandee Univ ersity of [place] [facility] Body height 2022-08-07 05:48:00 162.6 cm Universi ty of [place] [facility] Body weight 2022-08-07 05:48:00 98.884 kg Universi ty of [place] [facility] BMI 2022-08-07 05:48:00 37.42 kg/m2 Universi ty of [place] [facility] Systolic blood 2022-04-16 04:00:00 152 mm[Hg] Univer sity of pressure [place] [facility] Diastolic blood 2022-04-16 04:00:00 83 mm[Hg] Unive rsity of pressure [place] [facility] Heart rate 2022-04-16 04:00:00 86 /min Universi ty of [place] [facility] Respiratory rate 2022-04-16 04:00:00 18 /min Univ ersity of [place] [facility] Oxygen saturation in 2022-04-16 04:00:00 97 /min University of Arterial blood by [place] [employer] molly Pulse oximetry Branch Body temperature 2022-04-16 02:17:00 37 Sandee Univ ersity of [place] [facility] Body height 2022-04-16 02:17:00 162.6 cm Universi ty of [place] [facility] Body weight 2022-04-16 02:17:00 120.203 kg Universi ty of [place] [facility] BMI 2022-04-16 02:17:00 45.49 kg/m2 Universi ty of [place] [facility] Systolic blood 2022-04-10 03:00:00 113 mm[Hg] Univer sity of pressure [place] [facility] Diastolic blood 2022-04-10 03:00:00 71 mm[Hg] Unive rsity of pressure [place] [facility] Heart rate 2022-04-10 03:00:00 84 /min Universi ty of [place] [facility] Respiratory rate 2022-04-10 03:00:00 17 /min Univ ersity of [place] [facility] Oxygen saturation in 2022-04-10 03:00:00 98 /min University of Arterial blood by [place] [employer] molly Pulse oximetry Branch Body temperature 2022-04-10 01:36:00 37.11 Sandee Univ ersity of [place] [facility] Body height 2022-04-10 01:36:00 162.6 cm Universi ty of [place] [facility] Body weight 2022-04-10 01:36:00 120.249 kg Universi ty of [place] [facility] BMI 2022-04-10 01:36:00 45.50 kg/m2 Universi ty of [place] [facility] Systolic blood 2022-02-15 21:55:49 128 mm[Hg] Univer sity of pressure [place] [facility] Diastolic blood 2022-02-15 21:55:49 79 mm[Hg] Unive rsity of pressure [place] [facility] Heart rate 2022-02-15 21:55:49 75 /min Universi ty of [place] [facility] Respiratory rate 2022-02-15 21:55:49 19 /min Univ ersity of [place] [facility] Oxygen saturation in 2022-02-15 21:55:49 99 /min University of Arterial blood by [facility] Pulse oximetry Branch Body temperature 2022-02-15 19:43:00 35.89 Sandee Univ ersity of [place] [facility] Body height 2022-02-15 19:43:00 162.6 cm Universi ty of [place] [facility] Body weight 2022-02-15 19:43:00 113.399 kg Universi ty of [place] [facility] BMI 2022-02-15 19:43:00 42.91 kg/m2 Universi ty of [place] [facility] Systolic blood 2021-09-29 03:00:00 126 mm[Hg] Univer sity of pressure [place] [facility] Diastolic blood 2021-09-29 03:00:00 57 mm[Hg] Unive rsity of pressure [place] [facility] Heart rate 2021-09-29 03:00:00 78 /min Universi ty of [place] [facility] Body temperature 2021-09-29 03:00:00 37.28 Sandee Univ ersity of [place] [facility] Respiratory rate 2021-09-29 03:00:00 16 /min Univ ersity of [place] [facility] Body height 2021-09-29 03:00:00 162.6 cm Universi ty of [place] [facility] Body weight 2021-09-29 03:00:00 117.935 kg Universi ty of [place] [facility] BMI 2021-09-29 03:00:00 44.63 kg/m2 Universi ty of [place] [facility] Oxygen saturation in 2021-09-29 03:00:00 97 /min University of Arterial blood by [facility] Pulse oximetry Branch Systolic blood 2021-04-02 18:55:00 138 mm[Hg] Univer sity of pressure [place] [facility] Diastolic blood 2021-04-02 18:55:00 104 mm[Hg] Unive rsity of pressure [place] [facility] Heart rate 2021-04-02 18:55:00 74 /min Universi ty of [place] [facility] Body temperature 2021-04-02 18:55:00 36.78 Sandee Univ ersity of [place] [facility] Respiratory rate 2021-04-02 18:55:00 18 /min Univ ersity of [place] [facility] Body weight 2021-04-02 18:55:00 122.471 kg Universi ty of [place] [facility] BMI 2021-04-02 18:55:00 46.35 kg/m2 Universi ty of [place] [facility] Oxygen saturation in 2021-04-02 18:55:00 97 /min University of Arterial blood by [facility] Pulse oximetry Branch Systolic blood 2020-10-03 17:23:00 132 mm[Hg] Univer sity of pressure [place] [facility] Diastolic blood 2020-10-03 17:23:00 56 mm[Hg] Unive rsity of pressure [place] [facility] Heart rate 2020-10-03 17:23:00 88 /min Universi ty of [place] [facility] Body temperature 2020-10-03 17:23:00 36.94 Sandee Univ ersity of [place] [facility] Respiratory rate 2020-10-03 17:23:00 18 /min Univ ersity of [place] [facility] Oxygen saturation in 2020-10-03 17:23:00 94 /min University of Arterial blood by [facility] Pulse oximetry Branch Body weight 2020-09-30 08:11:00 121.473 kg Universi ty of [place] [facility] BMI 2020-09-30 08:11:00 47.44 kg/m2 Universi ty [facility] [place] [facility] Body height 2020-09-29 03:33:00 160 cm Universi ty of [place] [facility] Diastolic blood 2019-08-11 20:04:00 44 mm[Hg] Unive rsity of pressure [place] [facility] Heart rate 2019-08-11 20:04:00 70 /min Universi ty of [place] [facility] Body temperature 2019-08-11 20:04:00 36.61 Sandee Univ ersity [facility] Respiratory rate 2019-08-11 20:04:00 18 /min Univ ersity of [facility] Branch Oxygen saturation in 2019-08-11 20:04:00 91 /min University of Arterial blood by [facility] Pulse oximetry Branch Systolic blood 2019-08-11 20:04:00 107 mm[Hg] Univer sity of pressure [facility] Body height 2019-08-10 08:01:00 162.6 cm Universi ty of [place] [facility] [place] Body weight 2019-08-10 08:01:00 119.296 kg Universi ty of [facility] BMI 2019-08-10 08:01:00 45.14 kg/m2 Universi ty of [facility] Branch Diastolic blood 2019-08-11 20:04:00 44 mm[Hg] [facility] Heart rate 2019-08-11 20:04:00 70 /min Universi ty of [facility] Body temperature 2019-08-11 20:04:00 36.61 Sandee Univ ersity of [facility] Respiratory rate 2019-08-11 20:04:00 18 /min Univ ersity [facility] Oxygen saturation in 2019-08-11 20:04:00 91 /min University of Arterial blood by [facility] Pulse oximetry Branch Systolic blood 2019-08-11 20:04:00 107 mm[facility]Hg[facility] Body height 2019-08-10 08:01:00 162.6 cm [facility]i ty [facility] [place] [facility] [place] Body weight 2019-08-10 08:01:00 119.296 kg [facility]i ty [facility] [place] [facility] [place] BMI 2019-08-10 08:01:00 45.14 kg/m2 Universi ty [facility] Branch Systolic blood 2022-09-23 12:31:29 103 mm[Hg] [facility] pressure Diastolic blood 2022-09-23 12:31:29 58 mm[Hg] Metho dist [facility] pressure Heart rate 2022-09-23 12:31:29 74 /min Methodis t [facility] Body temperature 2022-09-23 12:31:29 36.33 Sandee Meth odist [facility] Respiratory rate 2022-09-23 12:31:29 20 /min [facility] Oxygen saturation in 2022-09-23 12:31:29 95 /min [facility] Arterial blood by Pulse oximetry Body weight 2022-09-23 11:15:00 99.3 kg [facility] BMI 2022-09-23 11:15:00 37.58 kg/m2 [facility] Body height 2022-09-19 22:12:35 162.6 cm [facility] Heart rate 2022-07-09 13:57:00 78 /min [facility] Respiratory rate 2022-07-09 13:57:00 18 /min [facility] Oxygen saturation in 2022-07-09 13:57:00 94 /min [facility] Arterial blood by Pulse oximetry Systolic blood 2022-07-09 12:16:06 126 mm[Hg] [facility] pressure Diastolic blood 2022-07-09 12:16:06 58 mm[Hg] [facility] pressure Body temperature 2022-07-09 12:16:06 37.5 Sandee [facility] Body weight 2022-07-09 10:09:37 99.927 kg [facility] BMI 2022-07-09 10:09:37 37.81 kg/m2 [facility] Body height 2022-06-23 22:51:34 162.6 cm [facility] Systolic blood 2022-02-27 23:42:53 122 mm[Hg] [facility] pressure Diastolic blood 2022-02-27 23:42:53 53 mm[Hg] [facility] pressure Heart rate 2022-02-27 23:42:53 73 /min [facility] Body temperature 2022-02-27 23:42:53 37.06 Sandee [facility] Respiratory rate 2022-02-27 23:42:53 18 /min [facility] Oxygen saturation in 2022-02-27 23:42:53 98 /min [facility] Arterial blood by Pulse oximetry Body weight 2022-02-26 03:00:22 118.162 kg [facility] BMI 2022-02-26 03:00:22 44.71 kg/m2 [facility] Body height 2022-02-26 02:56:00 162.6 cm [facility] Systolic blood 2022-01-06 21:13:50 124 mm[Hg] [facility] pressure Diastolic blood 2022-01-06 21:13:50 58 mm[facility]Hg[facility] pressure Heart rate 2022-01-06 21:13:50 69 /min [facility] Body temperature 2022-01-06 21:13:50 35.89 Sandee [facility] Respiratory rate 2022-01-06 21:13:50 18 /min [facility] Oxygen saturation in 2022-01-06 21:13:50 95 /min [facility] Arterial blood by Pulse oximetry Body weight 2022-01-06 10:25:28 109.952 kg [facility] BMI 2022-01-06 10:25:28 41.61 kg/m2 [facility] Body height 2022-01-02 04:15:00 162.6 cm [facility] Systolic blood 2021-12-18 20:25:00 122 mm[Hg] [facility] pressure Diastolic blood 2021-12-18 20:25:00 57 mm[Hg] [facility] pressure Heart rate 2021-12-18 20:25:00 71 /min [facility] Body temperature 2021-12-18 20:25:00 36.94 Sandee [facility] Respiratory rate 2021-12-18 20:25:00 19 /min [facility] Oxygen saturation in 2021-12-18 20:25:00 94 /min [facility] Arterial blood by Pulse oximetry Body weight 2021-12-18 10:58:00 112.1 kg [facility] BMI 2021-12-18 10:58:00 42.42 kg/m2 [facility] Systolic blood 2021-12-03 12:21:16 129 mm[Hg] Method [facility] pressure Diastolic blood 2021-12-03 12:21:16 58 mm[Hg] [facility] pressure Heart rate 2021-12-03 12:21:16 68 /min [facility] Body temperature 2021-12-03 12:21:16 36.11 Sandee [facility] Respiratory rate 2021-12-03 12:21:16 20 /min [facility] Oxygen saturation in 2021-12-03 12:21:16 95 /min [facility] Arterial blood by Pulse oximetry Body weight 2021-12-03 11:09:00 112.6 kg [facility] BMI 2021-12-03 11:09:00 42.61 kg/m2 [facility] Body height 2021-10-21 16:02:36 162.6 cm [facility] Procedures Procedure Date / Time Performing Source Performed Clinician CBC WITH PLATELET AND DIFFERENTIAL 2022-09-23 Deepak Ward tor [facility] 10:03:00 Hospital BASIC METABOLIC PANEL 2022-09-23 Deepak Wardtor [facility] 10:03:00 Hospital PHOSPHORUS LEVEL 2022-09-23 Ward Bebeto [facility] 10:03:00 Hospital MAGNESIUM LEVEL 2022-09-23 Ward, Bebeto [facility] 10:03:00 Hospital HEPATIC FUNCTION PANEL 2022-09-23 Deepak Wardtor Methodis t 10:03:00 Hospital PROTHROMBIN TIME WITH INR 2022-09-23 Ward, Bebeto Metho dist 10:03:00 Hospital ESTIMATED GFR 2022-09-23 Deepak Wardtor [facility] 10:03:00 Hospital SMEAR REVIEW 2022-09-23 Sylvia Bebeto [facility] 10:03:00 Hospital CBC WITH PLATELET AND DIFFERENTIAL 2022-09-22 WardDeepak sanches tor [facility] 08:49:00 Hospital BASIC METABOLIC PANEL 2022-09-22 Deepak Wardtor [facility] 08:49:00 Hospital PHOSPHORUS LEVEL 2022-09-22 Ward Bebeto [facility] 08:49:00 Hospital MAGNESIUM LEVEL 2022-09-22 Ward, Bebeto [facility] 08:49:00 Hospital C-REACTIVE PROTEIN 2022-09-22 Ward, Bebeto [facility] 08:49:00 Hospital AMYLASE LEVEL 2022-09-22 Ward, Bebeto [facility] 08:49:00 Hospital HEPATIC FUNCTION PANEL 2022-09-22 Deepak Wardtor Methodis t 08:49:00 Hospital PROTHROMBIN TIME WITH INR 2022-09-22 Ward, Bebeto Metho dist 08:49:00 Hospital ESTIMATED GFR 2022-09-22 Ward, Bebeto [facility] 08:49:00 Hospital SMEAR REVIEW 2022-09-22 Ward, Bebeto [facility] 08:49:00 Hospital CBC WITH PLATELET AND DIFFERENTIAL 2022-09-21 Ward, Hec tor [facility] 10:03:00 Hospital PROTHROMBIN TIME WITH INR 2022-09-21 Deepak Wardtor Metho dist 10:03:00 Hospital BASIC METABOLIC PANEL 2022-09-21 Ward, Bebeto [facility] 10:03:00 Hospital HEPATIC FUNCTION PANEL 2022-09-21 Ward, Bebeto Methodis t 10:03:00 Hospital PHOSPHORUS LEVEL 2022-09-21 Ward, Bebteo [facility] 10:03:00 Hospital MAGNESIUM LEVEL 2022-09-21 Ward, Bebeto [facility] 10:03:00 Hospital C-REACTIVE PROTEIN 2022-09-21 Ward, Bebeto [facility] 10:03:00 Hospital LIPASE LEVEL 2022-09-21 Deepak Wardtor [facility] 10:03:00 Hospital AMYLASE LEVEL 2022-09-21 Ward, Bebeto [facility] 10:03:00 Hospital ESTIMATED GFR 2022-09-21 Deepak [facility] 10:03:00 Hospital SMEAR REVIEW 2022-09-21 WardDeepak sanchestor Anglican 10:03:00 Hospital CBC WITH PLATELET AND DIFFERENTIAL 2022-09-20 Ward, Hec tor [facility] 10:15:00 Hospital PROTHROMBIN TIME WITH INR 2022-09-20 Deepak Wardtor Metho dist 10:15:00 Hospital BASIC METABOLIC PANEL 2022-09-20 Ward, Bebeto Anglican 10:15:00 Hospital HEPATIC FUNCTION PANEL 2022-09-20 Bebeto Ward Methodis t 10:15:00 Hospital PHOSPHORUS LEVEL 2022-09-20 Ward, Bebeto [facility] 10:15:00 Hospital MAGNESIUM LEVEL 2022-09-20 Ward, Bebeto [facility] 10:15:00 Hospital C-REACTIVE PROTEIN 2022-09-20 Ward, Bebeto [facility] 10:15:00 Hospital HEMOGLOBIN A1C 2022-09-20 Ward, Bebeto Anglican 10:15:00 Hospital THYROID STIMULATING HORMONE 2022-09-20 WardBebeto graves Met hodist 10:15:00 Hospital VITAMIN D 25 HYDROXY LEVEL 2022-09-20 WardBebeto graves Meth odist 10:15:00 Hospital ALPHA FETOPROTEIN 2022-09-20 Ward Bebeto Anglican 10:15:00 Hospital LIPASE LEVEL 2022-09-20 Ward Bebeto Anglican 10:15:00 Hospital AMYLASE LEVEL 2022-09-20 Ward, Bebeto Anglican 10:15:00 Hospital LDH 2022-09-20 Ward Bebeto Anglican 10:15:00 Hospital FERRITIN LEVEL 2022-09-20 Ward Bebeto Anglican 10:15:00 Hospital VITAMIN B12 LEVEL 2022-09-20 Ward, Bebeto Anglican 10:15:00 Hospital RETICULOCYTE COUNT 2022-09-20 Ward, Bebeto Anglican 10:15:00 Hospital TOTAL IRON BINDING CAPACITY 2022-09-20 WardBebeto graves Met hodist 10:15:00 Hospital FOLATE LEVEL 2022-09-20 Ward, Bebeto Anglican 10:15:00 Hospital HAPTOGLOBIN 2022-09-20 Ward, Bebeto Anglican 10:15:00 Hospital ESTIMATED GFR 2022-09-20 Ward, Bebeto Anglican 10:15:00 Hospital SMEAR REVIEW 2022-09-20 Ward, Bebeto Anglican 10:15:00 [facility] URINALYSIS SCREEN AND MICROSCOPY, 2022-09-19 Daniel Saucedo WITH REFLEX TO CULTURE 13:28:00 [facility] URINE CULTURE 2022-09-19 Daniel Saucedo 13:28:00 [facility] LACTIC ACID LEVEL, SEPSIS - NOW 2022-09-19 Daniel Saucedo AND REPEAT 2X EVERY 3 HOURS 08:12:[address] ABDOMEN PELVIS WO CONTRAST 2022-09-19 Daniel Saucedo Nd thodist 06:18:00 Hospital CBC WITH PLATELET AND DIFFERENTIAL 2022-09-19 Daniel Saucedo 04:11:00 [facility] COMPREHENSIVE METABOLIC PANEL 2022-09-19 Daniel Saucedo Nd thodist 04:11:00 Hospital LACTIC ACID LEVEL, SEPSIS - NOW 2022-09-19 Daniel Saucedo AND REPEAT 2X EVERY 3 HOURS 04:11:00 Hosp ital LIPASE LEVEL 2022-09-19 Daniel Saucedo 04:11:00 Hospital ESTIMATED GFR 2022-09-19 Daniel Saucedo 04:11:00 Hospital SMEAR REVIEW 2022-09-19 Daniel Saucedo 04:11:00 Hospital US DUPLEX VENOUS UPPER EXTREMITY 2022-09-09 Ricarda Ward LEFT 16:42:00 Hospital CBC WITH PLATELET AND DIFFERENTIAL 2022-09-09 Deepak Ward tor [facility] 08:41:00 Hospital BASIC METABOLIC PANEL 2022-09-09 Ward, Bebeto Anglican 08:41:00 Hospital HEPATIC FUNCTION PANEL 2022-09-09 Bebeto Ward Methodis t 08:41:00 Hospital MAGNESIUM LEVEL 2022-09-09 Bebeto Ward Anglican 08:41:00 Hospital PHOSPHORUS LEVEL 2022-09-09 Ward, Bebeto Anglican 08:41:00 Hospital PROTHROMBIN TIME WITH INR 2022-09-09 Bebeto Ward Metho dist 08:41:00 Hospital ESTIMATED GFR 2022-09-09 Ward, Bebeto Anglican 08:41:00 Hospital SMEAR REVIEW 2022-09-09 Deepak Wardtor [facility] 08:41:00 Hospital CBC WITH PLATELET AND DIFFERENTIAL 2022-09-08 Leah Sandoval [facility] 10:45:00 [facility] PROTHROMBIN TIME WITH INR 2022-09-08 Jeremy Sandoval Method ist 10:45:00 [facility] BASIC METABOLIC PANEL 2022-09-08 Jeremy Sandoval Anglican 10:45:00 [facility] HEPATIC FUNCTION PANEL 2022-09-08 Jeremy Sandoval Anglican 10:45:00 [facility] PHOSPHORUS LEVEL 2022-09-08 Dinar Jeremy Anglican 10:45:00 [facility] MAGNESIUM LEVEL 2022-09-08 Jeremy Sandoval Anglican 10:45:00 [facility] ESTIMATED GFR 2022-09-08 Ara Jeremy Anglican 10:45:00 [facility] SMEAR REVIEW 2022-09-08 Jeremy Sandoval Anglican 10:45:00 [facility] XR ABDOMEN 1 VW PORTABLE 2022-09-07 Bebeto Ward Method ist 22:48:34 [facility] CBC WITH PLATELET AND DIFFERENTIAL 2022-09-07 Dinakar, Leah stuart Anglican 10:35:00 [facility] PROTHROMBIN TIME WITH INR 2022-09-07 Dinakar, Jeremy Method ist 10:35:00 [facility] BASIC METABOLIC PANEL 2022-09-07 Dinakar, Jeremy Anglican 10:35:00 [facility] HEPATIC FUNCTION PANEL 2022-09-07 Dinakar, Jeremy Anglican 10:35:00 [facility] PHOSPHORUS LEVEL 2022-09-07 Dinakar, Jeremy Anglican 10:35:00 [facility] MAGNESIUM LEVEL 2022-09-07 Dinakar, Jeremy Anglican 10:35:00 [facility] LIPASE LEVEL 2022-09-07 Ward, Bebeto Anglican 10:35:00 [facility] AMYLASE LEVEL 2022-09-07 Bebeto Ward Anglican 10:35:00 Hospital ESTIMATED GFR 2022-09-07 Dinakar, Jeremy Anglican 10:35:00 [facility] SMEAR REVIEW 2022-09-07 Dinakar, Jeremy Anglican 10:35:00 [facility] CBC WITH PLATELET AND DIFFERENTIAL 2022-09-06 Dinakar, Leah stuart Anglican 11:41:00 [facility] PROTHROMBIN TIME WITH INR 2022-09-06 Dinakar, Jeremy Method ist 11:41:00 [facility] BASIC METABOLIC PANEL 2022-09-06 Dinakar, Jeremy Anglican 11:41:00 [facility] HEPATIC FUNCTION PANEL 2022-09-06 Dinakar, Jeremy Anglican 11:41:00 [facility] PHOSPHORUS LEVEL 2022-09-06 Dinakar, Jeremy Anglican 11:41:00 [facility] MAGNESIUM LEVEL 2022-09-06 Dinakar, Jeremy Anglican 11:41:00 [facility] FERRITIN LEVEL 2022-09-06 Bebeto Ward [facility] 11:41:00 Hospital LDH 2022-09-06 Bebeto Ward [facility] 11:41:00 Hospital FOLATE LEVEL 2022-09-06 Bebeto Ward [facility] 11:41:00 Hospital TOTAL IRON BINDING CAPACITY 2022-09-06 Bebeto Ward 11:41:00 Hospital VITAMIN B12 LEVEL 2022-09-06 Bebeto Ward [facility] 11:41:00 Hospital RETICULOCYTE COUNT 2022-09-06 Bebeto Ward [facility] 11:41:00 Hospital ESTIMATED GFR 2022-09-06 Jeremy Sandoval [facility] 11:41:00 [facility] SMEAR REVIEW 2022-09-06 Jeremy Sandoval [facility] 11:41:00 [facility] XR ABDOMEN 1 VW PORTABLE 2022-09-06 Bebeto Ward Method ist 11:20:00 Hospital XR ABDOMEN 1 VW PORTABLE 2022-09-05 Bebeto Ward Method ist 18:31:03 Hospital CBC WITH PLATELET AND DIFFERENTIAL 2022-09-05 DinarLeah Anglican 10:41:00 [facility] PROTHROMBIN TIME WITH INR 2022-09-05 MichelakarJeremy Method ist 10:41:00 [facility] BASIC METABOLIC PANEL 2022-09-05 DinJeremy hernandez Anglican 10:41:00 [facility] HEPATIC FUNCTION PANEL 2022-09-05 DinhomarJeremy Anglican 10:41:00 [facility] PHOSPHORUS LEVEL 2022-09-05 DinakarJeremy Anglican 10:41:00 [facility] MAGNESIUM LEVEL 2022-09-05 Jeremy Sandoval [facility] 10:41:00 [facility] ESTIMATED GFR 2022-09-05 Jeremy Sandoval Anglican 10:41:00 [facility] SMEAR REVIEW 2022-09-05 Jeremy Sandoval [facility] 10:41:00 [facility] CBC WITH PLATELET AND DIFFERENTIAL 2022-09-04 MichelakarLeah Anglican 10:29:00 [facility] PROTHROMBIN TIME WITH INR 2022-09-04 DinakarJeremy Method ist 10:29:00 [facility] BASIC METABOLIC PANEL 2022-09-04 DinarJeremy Anglican 10:29:00 [facility] HEPATIC FUNCTION PANEL 2022-09-04 MichelakarJeremy Anglican 10:29:00 [facility] PHOSPHORUS LEVEL 2022-09-04 DinakarJeremy Anglican 10:29:00 [facility] MAGNESIUM LEVEL 2022-09-04 DinakarJeremy Anglican 10:29:00 [facility] ESTIMATED GFR 2022-09-04 Jeremy Sandoval Anglican 10:29:00 [facility] SMEAR REVIEW 2022-09-04 Jeremy Sandoval 10:29:[address] [facility] [address] ABDOMEN WWO CONTRAST PELVIS W 2022-09-03 Jer Jaeger Anglican CONTRAST 17:59:23 [facility] CBC WITH PLATELET AND DIFFERENTIAL 2022-09-03 Leah Sandoval Anglican 09:48:00 [facility] PROTHROMBIN TIME WITH INR 2022-09-03 Jeremy Sandoval Method ist 09:48:00 [facility] BASIC METABOLIC PANEL 2022-09-03 Ara, Jeremy Anglican 09:48:00 [facility] HEPATIC FUNCTION PANEL 2022-09-03 Jeremy Sandoval 09:48:00 [facility] PHOSPHORUS LEVEL 2022-09-03 Jeremy Sandoval Anglican 09:48:00 [facility] MAGNESIUM LEVEL 2022-09-03 Jeremy Sandoval 09:48:00 [facility] ESTIMATED GFR 2022-09-03 Jeremy Sandoval Anglican 09:48:00 [facility] SMEAR REVIEW 2022-09-03 Jeremy Sandoval Anglican 09:48:00 [facility] US ABDOMINAL PARACENTESIS IMAGING 2022-09-02 Jose Sandoval 19:17:39 [facility] PROTEIN, MISC FLUID 2022-09-02 Jeremy Sandoval Anglican 18:45:00 [facility] CELL COUNT AND DIFFERENTIAL, BODY 2022-09-02 Jose Sandoval FLUID 18:45:00 [facility] ALBUMIN, MISC FLUID 2022-09-02 Jeermy Sandoval Anglican 18:45:00 [facility] CYTOLOGY (NON-GYNECOLOGICAL) 2022-09-02 Bebeto Ward REQUEST 18:45:00 Hospital AEROBIC CULTURE 2022-09-02 Jeremy Sandoval 18:45:00 [facility] ANAEROBIC CULTURE 2022-09-02 Jeremy Sandoval 18:45:00 [facility] GRAM STAIN 2022-09-02 Jeremy Sandoval 18:45:00 [facility] VENIPUNC NEED PHYS SKILL,DX OR RX 2022-09-02 Yvonne Zabalaist 13:30:44 Hospital CBC WITH PLATELET AND DIFFERENTIAL 2022-09-02 Dinakar, Leah Rileyist 10:47:00 [facility] PROTHROMBIN TIME WITH INR 2022-09-02 Dinakar, Jeremy Method ist 10:47:00 [facility] BASIC METABOLIC PANEL 2022-09-02 Dinakar, Jeremy Rileyist 10:47:00 [facility] HEPATIC FUNCTION PANEL 2022-09-02 Dinakar, Jeremy Rileyist 10:47:00 [facility] PHOSPHORUS LEVEL 2022-09-02 Dinakar, Jeremy Rileyist 10:47:00 [facility] MAGNESIUM LEVEL 2022-09-02 Dinakar, Jeremy Rileyist 10:47:00 [facility] HEMOGLOBIN A1C 2022-09-02 Dinar, Jeremy Rileyist 10:47:00 [facility] ESTIMATED GFR 2022-09-02 Michelakar, Jeremy Kyle 10:47:00 [facility] SMEAR REVIEW 2022-09-02 Michelakar, Jeremy Kyle 10:47:00 [facility] URINALYSIS, AUTOMATED WITH 2022-09-02 DinakarJeremy Metho dist MICROSCOPY 02:02:00 [facility] BLOOD CULTURE, AEROBIC & ANAEROBIC 2022-09-02 Ara, Leah Kyle 01:48:00 [facility] XR CHEST 1 VW PORTABLE 2022-09-02 Jeremy Sandoval 00:35:32 [facility] XR ABDOMEN 1 VW PORTABLE 2022-09-02 Dinhomar, Jeremy Lemus st 00:34:59 [facility] BASIC METABOLIC PANEL 2022-09-01 Dinakar, Jeremy Kyle 22:31:00 [facility] CBC WITH PLATELET AND DIFFERENTIAL 2022-09-01 Dinakar, Leah Rileyist 22:31:00 [facility] HEPATIC FUNCTION PANEL 2022-09-01 Dinakar, Jeremy Rileyist 22:31:00 [facility] MAGNESIUM LEVEL 2022-09-01 Dinakar, Jeremy Rileyist 22:31:00 [facility] PHOSPHORUS LEVEL 2022-09-01 Dinakar, Jeremy Rileyist 22:31:00 [facility] PROTHROMBIN TIME WITH INR 2022-09-01 DinakaJeremy gallardo ist 22:31:00 [facility] LIPASE LEVEL 2022-09-01 Jeremy Sandoval 22:31:00 [facility] FIBRINOGEN 2022-09-01 Jeremy Sandoval 22:31:00 [facility] ESTIMATED GFR 2022-09-01 Jeremy Sandoval 22:31:00 [facility] SMEAR REVIEW 2022-09-01 Jeremy Sandoval 22:31:00 [facility] BLOOD CULTURE, AEROBIC & ANAEROBIC 2022-09-01 Leah Sandoval 22:31:00 [facility] XR KNEE 3 VW RIGHT 2022-08-11 [facility] of 15:57:34 [facility] XR LUMBAR SPINE 2 VW 2022-08-11 [facility] of 15:57:06 [facility] EKG-12 LEAD 2022-08-07 Sukhdev Soto [facility] of 07:45:43 [facility] LIPASE 2022-08-07 Sukhdev Soto [facility] of 06:26:00 [facility] MAGNESIUM 2022-08-07 CharlesSukhdev [facility] of 06:26:00 [facility] TROPONIN I 2022-08-07 CharlesSukhdev [facility] 06:26:00 [facility] COMP. METABOLIC PANEL (98235) 2022-08-07 Sukhdev Soto [facility] of 06:26:00 [facility] CBC WITH DIFF 2022-08-07 Sukhdev Soto [facility] 06:26:00 [facility] URINALYSIS 2022-08-07 Sukhdev Soto [facility] 06:26:00 [facility] CONSENT/REFUSAL FOR DIAGNOSIS AND 2022-08-07 Doctor Buck olmedo, [facility] 05:28:51 [place] [facility] SURGICAL PATHOLOGY REQUEST 2022-08-03 Nakia Cruz Metho dist 21:04:00 Hospital ESOPHAGOGASTRODUODENOSCOPY (EGD) 2022-08-03 Elias Guzman 20:10:00 Hospital AMMONIA LEVEL 2022-08-03 Nakia Cruz 09:12:00 Hospital BASIC METABOLIC PANEL 2022-08-03 Li, Nakia [facility] 09:12:00 Hospital HEPATIC FUNCTION PANEL 2022-08-03 Nakia Cruz [facility] 09:12:00 Hospital MAGNESIUM LEVEL 2022-08-03 Nakia Cruz [facility] 09:12:00 Hospital PHOSPHORUS LEVEL 2022-08-03 Nakia Cruz [facility] 09:12:00 Hospital PROTHROMBIN TIME WITH INR 2022-08-03 Nakia Cruz Method ist 09:12:00 Hospital CBC HEMOGRAM 2022-08-03 Nakia Cruz [facility] 09:12:00 Hospital ESTIMATED GFR 2022-08-03 Nakia Cruz [facility] 09:12:00 Hospital COVID-19 QUALITATIVE RT-PCR 2022-08-02 Elias Guzman odist 22:28:00 Hospital AMMONIA LEVEL 2022-08-02 Nakia Cruzist 08:00:00 Hospital BASIC METABOLIC PANEL 2022-08-02 Nakia Cruz [facility] 08:00:00 Hospital HEPATIC FUNCTION PANEL 2022-08-02 Nakia Cruz [facility] 08:00:00 Hospital MAGNESIUM LEVEL 2022-08-02 Nakia Cruz [facility] 08:00:00 Hospital PHOSPHORUS LEVEL 2022-08-02 Nakia Cruz [facility] 08:00:00 Hospital PROTHROMBIN TIME WITH INR 2022-08-02 Nakia Cruz Method ist 08:00:00 Hospital CBC HEMOGRAM 2022-08-02 Nakia Cruzist 08:00:00 Hospital LIPASE LEVEL 2022-08-02 Nakia Cruz [facility] 08:00:00 Hospital ESTIMATED GFR 2022-08-02 Nakia Cruz [facility] 08:00:00 Hospital AMMONIA LEVEL 2022-08-01 Nakia Cruz [facility] 11:23:00 Hospital BASIC METABOLIC PANEL 2022-08-01 Nakia Cruz [facility] 11:23:00 Hospital HEPATIC FUNCTION PANEL 2022-08-01 Nakia Cruz [facility] 11:23:00 Hospital MAGNESIUM LEVEL 2022-08-01 Tripp Cruzg Anglican 11:23:00 Hospital PHOSPHORUS LEVEL 2022-08-01 Nakia Cruz [facility] 11:23:00 Hospital PROTHROMBIN TIME WITH INR 2022-08-01 Nakia Cruz Method ist 11:23:00 Hospital CBC HEMOGRAM 2022-08-01 Nakia Cruz 11:23:00 Hospital ESTIMATED GFR 2022-08-01 Nakia Cruz 11:23:00 Hospital CBC WITH PLATELET AND DIFFERENTIAL 2022-07-31 Willian Singleton 07:31:00 [facility] COMPREHENSIVE METABOLIC PANEL 2022-07-31 Willian Singleton 07:31:00 [facility] PROTHROMBIN TIME WITH INR 2022-07-31 Willian Singleton Method ist 07:31:00 [facility] ESTIMATED GFR 2022-07-31 Willian Singleton 07:31:00 [facility] SMEAR REVIEW 2022-07-31 Willian Singleton 07:31:00 [facility] BASIC METABOLIC PANEL 2022-07-30 Willian Singleton 11:02:00 [facility] CBC WITH PLATELET AND DIFFERENTIAL 2022-07-30 JoseWillian ngo 11:02:00 [facility] HEPATIC FUNCTION PANEL 2022-07-30 Willian Singleton 11:02:00 [facility] PROTHROMBIN TIME WITH INR 2022-07-30 Willian Singleton Method ist 11:02:00 [facility] ESTIMATED GFR 2022-07-30 Willian Singleton 11:02:00 [facility] LIPASE LEVEL 2022-07-29 Willian Singleton 09:45:00 [facility] PROTHROMBIN TIME WITH INR 2022-07-29 Willian Singleton Method ist 09:45:00 [facility] CBC WITH PLATELET AND DIFFERENTIAL 2022-07-29 Willian Singleton 09:45:00 [facility] BASIC METABOLIC PANEL 2022-07-29 Willian Singleton 09:45:00 [facility] HEPATIC FUNCTION PANEL 2022-07-29 Willian Singleton 09:45:00 [facility] ESTIMATED GFR 2022-07-29 Willian Singleton 09:45:00 [facility] SMEAR REVIEW 2022-07-29 Willian Sinlgeton 09:45:00 [facility] BLOOD CULTURE, AEROBIC & ANAEROBIC 2022-07-29 Deepak Ward 09:45:00 Hospital URINE CULTURE 2022-07-29 Bebeto Ward 01:52:00 Hospital US HEPATIC 2022-07-29 Willian Singleton 00:00:00 [facility] URINALYSIS SCREEN AND MICROSCOPY, 2022-07-28 Dianelys Ward or Anglican WITH REFLEX TO CULTURE 22:31:00 Hospital COVID-19 QUALITATIVE RT-PCR 2022-07-28 Willian Singleton 22:02:00 [facility] BLOOD CULTURE, AEROBIC & ANAEROBIC 2022-07-28 Deepak Ward [facility] 21:23:00 Hospital COMPREHENSIVE METABOLIC PANEL 2022-07-28 Bebeto Ward ethodist 21:22:00 Hospital PROTHROMBIN TIME WITH INR 2022-07-28 Bebeto Ward Metho dist 21:22:00 Hospital TYPE AND SCREEN 2022-07-28 Bebeto Ward [facility] 21:22:00 Hospital ESTIMATED GFR 2022-07-28 Bebeto Ward 21:22:00 Hospital LIPASE LEVEL 2022-07-28 Bebeto Ward [facility] 21:22:00 Hospital CBC WITH PLATELET AND DIFFERENTIAL 2022-07-28 Deepak Ward [facility] 20:57:00 Hospital CBC WITH PLATELET AND DIFFERENTIAL 2022-07-09 Deepak Ward 11:42:00 Hospital PROTHROMBIN TIME WITH INR 2022-07-09 Bebeto Ward Metho dist 11:42:00 Hospital BASIC METABOLIC PANEL 2022-07-09 Bebeto Ward 11:42:00 Hospital ESTIMATED GFR 2022-07-09 Bebeto Ward [facility] 11:42:00 Hospital NM GASTRIC EMPTYING 2022-07-08 Anabella Suresh 18:43:00 [facility] CBC WITH PLATELET AND DIFFERENTIAL 2022-07-08 Deepak Ward 09:20:00 Hospital PROTHROMBIN TIME WITH INR 2022-07-08 Bebeto Ward Metho dist 09:20:00 Hospital COMPREHENSIVE METABOLIC PANEL 2022-07-08 Me dennis Suresh 09:20:00 [facility] ESTIMATED GFR 2022-07-08 Anabella Suresh 09:20:00 [facility] CBC WITH PLATELET AND DIFFERENTIAL 2022-07-07 Deepak Ward Anglican 10:07:00 Hospital PROTHROMBIN TIME WITH INR 2022-07-07 Bebeto Ward Metho dist 10:07:00 Hospital COMPREHENSIVE METABOLIC PANEL 2022-07-07 Nakia Cruz Nd thodist 10:07:00 Hospital PHOSPHORUS LEVEL 2022-07-07 Bebeto Ward Anglican 10:07:00 Hospital MAGNESIUM LEVEL 2022-07-07 Bebeto Ward Anglican 10:07:00 Hospital ESTIMATED GFR 2022-07-07 Nakia Cruzist 10:07:[address] ABDOMEN PELVIS W CONTRAST 2022-07-06 Katherine Jaeger 22:02:35 [facility] CBC WITH PLATELET AND DIFFERENTIAL 2022-07-06 Deepak Ward Anglican 11:46:00 Hospital PROTHROMBIN TIME WITH INR 2022-07-06 Bebeto Ward Metho dist 11:46:00 Hospital COMPREHENSIVE METABOLIC PANEL 2022-07-06 Nakia Cruz Nd thodist 11:46:00 Hospital PHOSPHORUS LEVEL 2022-07-06 Bebeto Ward Anglican 11:46:00 Hospital MAGNESIUM LEVEL 2022-07-06 Bebeto Ward Anglican 11:46:00 Hospital LIPASE LEVEL 2022-07-06 Anabella Suresh 11:46:00 [facility] ESTIMATED GFR 2022-07-06 Nakia Cruz 11:46:00 Hospital SMEAR REVIEW 2022-07-06 Nakia Cruz 11:46:00 Hospital XR KNEE 1 OR 2 VW RIGHT 2022-07-06 Juan Suresh t 11:12:26 [facility] CBC WITH PLATELET AND DIFFERENTIAL 2022-07-05 Deepak Ward Anglican 09:28:00 Hospital PROTHROMBIN TIME WITH INR 2022-07-05 Bebeto Ward Metho dist 09:28:00 Hospital COMPREHENSIVE METABOLIC PANEL 2022-07-05 Nakia Cruz Nd thodist 09:28:00 Hospital PHOSPHORUS LEVEL 2022-07-05 Bebeto Ward Anglican 09:28:00 Hospital MAGNESIUM LEVEL 2022-07-05 Bebeto Ward [facility] 09:28:00 Hospital HEMOGLOBIN A1C 2022-07-05 Nakia Cruz [...] US DUPLEX VENOUS UPPER EXTREMITY 2022-06-30 Tameka Deshpande Anglican RIGHT 19:38:00 Hospital US CAROTID DUPLEX RIGHT 2022-06-30 Tameka Deshpande t 19:00:00 Hospital XR ABDOMEN 1 VW PORTABLE 2022-06-30 Bebeto Ward Method ist 15:45:00 Hospital CBC WITH PLATELET AND DIFFERENTIAL 2022-06-30 Nakia Cruz 09:35:00 Hospital PROTHROMBIN TIME WITH INR 2022-06-30 Nakia Cruz Method ist 09:35:00 Hospital PHOSPHORUS LEVEL 2022-06-30 Nakia Cruz Anglican 09:35:00 Hospital MAGNESIUM LEVEL 2022-06-30 Nakia Cruz 09:35:00 Hospital BASIC METABOLIC PANEL 2022-06-30 Bebeto Ward Anglican 09:35:00 Hospital HEPATIC FUNCTION PANEL 2022-06-30 Bebeto Ward Methodjoe t 09:35:00 Hospital ESTIMATED GFR 2022-06-30 Bebeto Ward Anglican 09:35:00 Hospital LIPASE LEVEL 2022-06-30 Bebeto Ward Anglican 09:35:00 Hospital SMEAR REVIEW 2022-06-30 Nakia Cruz 09:35:00 Hospital CV RIGHT HEART CATH 2022-06-29 Adama Duarte 15:34:01 Hospital TYPE AND SCREEN 2022-06-29 Bebeto Ward Anglican 10:54:00 Hospital PREPARE PLATELET PHERESIS 2022-06-29 Adama Duarte Method ist 10:54:00 Hospital CBC WITH PLATELET AND DIFFERENTIAL 2022-06-29 Nakia Cruz 09:19:00 Hospital PROTHROMBIN TIME WITH INR 2022-06-29 Nakia Cruz ist 09:19:00 Hospital PHOSPHORUS LEVEL 2022-06-29 Nakia Cruz 09:19:00 Hospital MAGNESIUM LEVEL 2022-06-29 Nakia Cruz 09:19:00 Hospital C-REACTIVE PROTEIN 2022-06-29 Bebeto Ward Anglican 09:19:00 Hospital LIPASE LEVEL 2022-06-29 Bebeto Ward Anglican 09:19:00 Hospital BASIC METABOLIC PANEL 2022-06-29 Bebeto Ward Anglican 09:19:00 Hospital HEPATIC FUNCTION PANEL 2022-06-29 Bebeto Ward t 09:19:00 Hospital ESTIMATED GFR 2022-06-29 Bebeto Ward Anglican 09:19:00 Hospital SMEAR REVIEW 2022-06-29 Nakia Cruz 09:19:00 Hospital VENIPUNC NEED PHYS SKILL,DX OR RX 2022-06-28 Anabella Damon 22:38:[address] [facility] [address] CARDIAC OVERREAD 2022-06-28 Adama Duarte Anglican 15:27:09 Hospital CV CTA CORONARY ARTERIES W 2022-06-28 Adama Duarteo dist CONTRAST 15:24:49 Hospital CBC WITH PLATELET AND DIFFERENTIAL 2022-06-28 Nakia Cruz 08:51:00 Hospital PROTHROMBIN TIME WITH INR 2022-06-28 Nakia Cruz Method ist 08:51:00 Hospital PHOSPHORUS LEVEL 2022-06-28 Nakia Cruz Anglican 08:51:00 Hospital MAGNESIUM LEVEL 2022-06-28 Nakia Cruz 08:51:00 Hospital C-REACTIVE PROTEIN 2022-06-28 Bebeto Ward Anglican 08:51:00 Hospital LIPASE LEVEL 2022-06-28 Bebeto Ward Anglican 08:51:00 Hospital BASIC METABOLIC PANEL 2022-06-28 Bebeto Ward Anglican 08:51:00 Hospital HEPATIC FUNCTION PANEL 2022-06-28 Bebeto Ward t 08:51:00 Hospital LDH 2022-06-28 Bebeto Ward Anglican 08:51:00 Hospital ESTIMATED GFR 2022-06-28 Bebeto Ward Anglican 08:51:00 Hospital SMEAR REVIEW 2022-06-28 Nakia Cruz 08:51:00 Hospital CBC WITH PLATELET AND DIFFERENTIAL 2022-06-27 Nakia Cruz 08:56:00 Hospital PROTHROMBIN TIME WITH INR 2022-06-27 Nakia Cruz ist 08:56:00 Hospital PHOSPHORUS LEVEL 2022-06-27 Nakia Cruz Anglican 08:56:00 Hospital MAGNESIUM LEVEL 2022-06-27 Nakia Cruz Anglican 08:56:00 Hospital C-REACTIVE PROTEIN 2022-06-27 Bebeto Ward Anglican 08:56:00 Hospital LIPASE LEVEL 2022-06-27 Deepak Wardtor Anglican 08:56:00 Hospital LDH 2022-06-27 Deepak Wardtor Anglican 08:56:00 Hospital IONIZED CALCIUM 2022-06-27 Deepak Wardtor Anglican 08:56:00 Hospital IGG SUBCLASSES 2022-06-27 Bebeto Ward 08:56:00 Hospital BASIC METABOLIC PANEL 2022-06-27 Bebeto Ward 08:56:00 Hospital HEPATIC FUNCTION PANEL 2022-06-27 Bebeto Ward t 08:56:00 Hospital ESTIMATED GFR 2022-06-27 Bebeto Ward Anglican 08:56:00 Hospital SMEAR REVIEW 2022-06-27 Nakia Cruz 08:56:00 Hospital CBC WITH PLATELET AND DIFFERENTIAL 2022-06-26 Nakia Cruz Anglican 08:56:00 Hospital PROTHROMBIN TIME WITH INR 2022-06-26 Nakia Cruz Method ist 08:56:00 Hospital COMPREHENSIVE METABOLIC PANEL 2022-06-26 Nakia Cruz thodist 08:56:00 Hospital PHOSPHORUS LEVEL 2022-06-26 Nakia Cruz 08:56:00 Hospital MAGNESIUM LEVEL 2022-06-26 Nakia Cruz 08:56:00 Hospital AMMONIA LEVEL 2022-06-26 Nakia Cruz 08:56:00 Hospital ESTIMATED GFR 2022-06-26 Nakia Cruz 08:56:00 Hospital SMEAR REVIEW 2022-06-26 Nakia Cruz 08:56:00 Hospital CBC WITH PLATELET AND DIFFERENTIAL 2022-06-25 Nakia Cruzist 09:48:00 Hospital PROTHROMBIN TIME WITH INR 2022-06-25 Nakia Cruz Method ist 09:48:00 Hospital COMPREHENSIVE METABOLIC PANEL 2022-06-25 Nakia Cruz thodist 09:48:00 Hospital PHOSPHORUS LEVEL 2022-06-25 Nakia Cruz Anglican 09:48:00 Hospital MAGNESIUM LEVEL 2022-06-25 Nakia Cruz Anglican 09:48:00 Hospital AMMONIA LEVEL 2022-06-25 Nakia Cruz Anglican 09:48:00 Hospital LIPASE LEVEL 2022-06-25 Myra Garcia 09:48:00 [facility] AMYLASE LEVEL 2022-06-25 Myra Garcia Anglican 09:48:00 Hospital ESTIMATED GFR 2022-06-25 Nakia Cruz 09:48:00 Hospital SMEAR REVIEW 2022-06-25 Nakia Cruz 09:48:[address] ABDOMEN WWO CONTRAST PELVIS W 2022-06-25 Manjit Garcia CONTRAST 02:19:19 [facility] XR ABDOMEN 1 VW PORTABLE 2022-06-24 Myra Garcia odist 21:52:21 [facility] CBC WITH PLATELET AND DIFFERENTIAL 2022-06-24 Nakia Cruz 10:10:00 Hospital PROTHROMBIN TIME WITH INR 2022-06-24 Nakia Cruz ist 10:10:00 Hospital COMPREHENSIVE METABOLIC PANEL 2022-06-24 Nakia Cruz thodist 10:10:00 Hospital PHOSPHORUS LEVEL 2022-06-24 Nakia Cruzist 10:10:00 Hospital MAGNESIUM LEVEL 2022-06-24 Nakia Cruz 10:10:00 Hospital HEMOGLOBIN A1C 2022-06-24 Nakia Cruz 10:10:00 Hospital THYROID STIMULATING HORMONE 2022-06-24 Nakia Cruz odist 10:10:00 Hospital T4 2022-06-24 Nakia Cruz 10:10:00 Hospital VITAMIN D 25 HYDROXY LEVEL 2022-06-24 Nakia Cruzo dist 10:10:00 Hospital AMMONIA LEVEL 2022-06-24 Nakia Cruz 10:10:00 Hospital ESTIMATED GFR 2022-06-24 Nakia Cruz 10:10:00 Hospital SMEAR REVIEW 2022-06-24 Nakia Cruz 10:10:00 Hospital URINE CULTURE 2022-06-24 Nakia Cruz 03:00:00 Hospital URINALYSIS SCREEN AND MICROSCOPY, 2022-06-24 Nakia Cruz WITH REFLEX TO CULTURE 03:00:00 Hospital COVID-19 QUALITATIVE RT-PCR 2022-06-24 Nakia Cruz odist 01:01:00 Hospital COMPREHENSIVE METABOLIC PANEL 2022-06-23 Nakia Cruz thodist 23:27:00 Hospital MAGNESIUM LEVEL 2022-06-23 Nakia Cruzist 23:27:00 Hospital PHOSPHORUS LEVEL 2022-06-23 Nakia Cruzist 23:27:00 Hospital CBC WITH PLATELET AND DIFFERENTIAL 2022-06-23 Nakia Cruz 23:27:00 Hospital PROTHROMBIN TIME WITH INR 2022-06-23 Nakia Cruz ist 23:27:00 Hospital LIPASE LEVEL 2022-06-23 Nakia Cruzist 23:27:00 Hospital ESTIMATED GFR 2022-06-23 Nakia Cruz 23:27:00 [facility] SMEAR REVIEW 2022-06-23 Nakia Cruzist 23:27:00 [facility] US CAROTID DUPLEX BILATERAL 2022-06-21 Jose Raul Nicole odist 20:00:00 [facility] SPIROMETRY, DIFFUSION, LUNG 2022-06-21 Jose Raul Nicole odcrow VOLUMES 18:16:50 [facility] ARTERIAL BLOOD GAS, PULMONARY FUNC 2022-06-21 Jules Nicole DEPT 17:38:00 [facility] TTE COMPLETE, WO CONTRAST, W 2022-06-21 Jose Raul Nicole hodcrow DOPPLER ([id number]) 16:30:00 [facility] XR CHEST 2 VW 2022-06-14 Jose Raul Nicole 20:41:00 [facility] XR PANOREX 2022-06-14 Jose Raul Nicole 20:41:00 [facility] BONE DENSITY 2022-06-14 Jose Raul Nicole 20:20:00 [facility] SHANELLE-GAYLE VIRUS ANTIBODY TEST 2022-06-14 Jose Raul Nicole 18:37:00 [facility] BASIC METABOLIC PANEL 2022-06-14 Jose Raul Nicole 18:37:00 [facility] HEPATIC FUNCTION PANEL 2022-06-14 Jose Raul Nicole 18:37:00 [facility] LIPID PANEL 2022-06-14 Jose Raul Nicole 18:37:00 [facility] LIPOPROTEIN (A) 2022-06-14 Jose Raul Nicole 18:37:00 [facility] GGT 2022-06-14 Jose Raul Nicole 18:37:00 [facility] TOTAL IRON BINDING CAPACITY 2022-06-14 Jose Raul Nicole 18:37:00 [facility] FERRITIN LEVEL 2022-06-14 Jose Raul Nicole 18:37:00 [facility] MAGNESIUM LEVEL 2022-06-14 Jose Raul Nicole Anglican 18:37:00 [facility] PHOSPHORUS LEVEL 2022-06-14 Jose Raul Nicole Anglican 18:37:00 [facility] VITAMIN D 25 HYDROXY LEVEL 2022-06-14 Jose Raul Nicole Metho dist 18:37:00 [facility] THYROID STIMULATING HORMONE 2022-06-14 CoreyJose Raul oconnor Meth odist 18:37:00 [facility] ANTINUCLEAR ANTIBODIES (LUIS ANGEL) WITH 2022-06-14 Maximiliano Nicole k Anglican REFLEX TO TITER AND PATTERN, 18:37:00 [facility] pital IMMUNOFLUORESCENCE CYTOMEGALOVIRUS AB, IGG 2022-06-14 Jose Raul Nicole Methodis t 18:37:00 [facility] CYTOMEGALOVIRUS AB, IGM 2022-06-14 Jose Raul Nicole t 18:37:00 [facility] HEMOGLOBIN A1C 2022-06-14 Jose Raul Nicole Anglican 18:37:00 [facility] HEPATITIS A ANTIBODY TOTAL 2022-06-14 Jose Raul Nicole Metho dist 18:37:00 [facility] HEPATITIS A ANTIBODY IGM 2022-06-14 Jose Ra[address]i [address] 18:37:00 [facility] HEPATITIS B SURFACE ANTIGEN 2022-06-14 Jose Raul Nicole Meth odist 18:37:00 [facility] HEPATITIS B SURFACE ANTIBODY 2022-06-14 Jose Raul Nicole Met hodist 18:37:00 [facility] HEPATITIS B CORE ANTIBODY TOTAL 2022-06-14 Jose Raul Nicole Anglican 18:37:00 [facility] HEPATITIS C ANTIBODY 2022-06-14 Jose Raul Nicole Anglican 18:37:00 [facility] HIV 1/2 ANTIGEN/ANTIBODY, FOURTH 2022-06-14 Jose Raul Nicole Anglican GENERATION, WITH REFLEXES 18:37:00 [facility] SYPHILIS TREPONEMA SCREEN WITH RPR 2022-06-14 Jules Nicole CONFIRMATION (REVERSE ALGORITHM) 18:37:00 [facility] SMOOTH MUSCLE ANTIBODIES WITH 2022-06-14 Jose Raul Nicole thodist REFLEX TO TITER, IFA 18:37:00 [facility] CBC WITH PLATELET AND DIFFERENTIAL 2022-06-14 uJles Nicole Anglican 18:37:00 [facility] PROTHROMBIN TIME WITH INR 2022-06-14 Jose Raul Nicole ist 18:37:00 [facility] PARTIAL THROMBOPLASTIN TIME (PTT) 2022-06-14 Maximiliano Nicole 18:37:00 [facility] ABORH - TRANSPLANT 2022-06-14 Jose Raul Nicole 18:37:00 [facility] ALCOHOL LEVEL, BLOOD 2022-06-14 Jose Raul Nicole 18:37:00 [facility] ALPHA FETOPROTEIN 2022-06-14 Jose Raul Nicole 18:37:00 [facility] CARCINOEMBRYONIC ANTIGEN (CEA) 2022-06-14 Jose Raul Nicole ethodist 18:37:00 [facility] CANCER ANTIGEN 19-9 2022-06-14 Jose Raul Nicole 18:37:00 [facility] ALPHA-1 ANTITRYPSIN LEVEL 2022-06-14 Jose Raul Nicole ist 18:37:00 [facility] CERULOPLASMIN LEVEL 2022-06-14 Jose Raul Nicole 18:37:00 [facility] FIBRINOGEN 2022-06-14 Jose Raul Nicole 18:37:00 [facility] TB T-SPOT 2022-06-14 Jose Raul Nicole 18:37:00 [facility] C-REACTIVE PROTEIN 2022-06-14 Jose Raul Nicole 18:37:00 [facility] PREALBUMIN LEVEL 2022-06-14 Jose Raul Nicole 18:37:00 [facility] ZINC LEVEL, SERUM 2022-06-14 Jose Raul Nicole 18:37:00 [facility] DRUG ROSS 9, SER/JESI, SCRN W/RFLX 2022-06-14 Jose Raul Nicole TO CONF 18:37:00 [facility] ESTIMATED GFR 2022-06-14 Jose Raul Nicole 18:37:00 [facility] PHOSPHATIDYLETHANOL, BLOOD 2022-06-14 Jose Raul Nicole Metho dist 18:37:00 [facility] SMEAR REVIEW 2022-06-14 Jose Raul Nicole 18:37:00 [facility] SINGLE ANTIGEN BEADS 2022-06-14 Jose Raul Nicole 18:37:00 [facility] SMOOTH MUSCLE ANTIBODIES TITER 2022-06-14 Jose Raul Nicole ethodist 18:37:00 [facility] NICOTINE AND COTININE, SERUM 2022-06-14 Jose Raul Nicole hodist 18:37:00 [facility] ECG 12-LEAD 2022-06-14 Jose Raul Nicole Anglican 15:46:40 [facility] ESTIMATED GFR 2022-05-30 Carolin Sanches Anglican 12:11:00 Hospital BASIC METABOLIC PANEL 2022-05-30 Ward, Bebeto Anglican 12:00:00 Hospital HEPATIC FUNCTION PANEL 2022-05-30 Ward, Bebeto Methodis t 12:00:00 Hospital MAGNESIUM LEVEL 2022-05-30 Ward, Bebeto Anglican 12:00:00 Hospital PHOSPHORUS LEVEL 2022-05-30 Ward, Bebeto Anglican 12:00:00 Hospital PROTHROMBIN TIME WITH INR 2022-05-30 Ward, Bebteo Metho dist 12:00:00 Hospital ESTIMATED GFR 2022-05-30 Ward, Bebeto Anglican 12:00:00 Hospital CBC WITH PLATELET AND DIFFERENTIAL 2022-05-29 Carolin Sanchesist 11:20:00 Hospital BASIC METABOLIC PANEL 2022-05-29 Carolin Sanches Anglican 11:20:00 Hospital HEPATIC FUNCTION PANEL 2022-05-29 Carolin Sanchesist 11:20:00 Hospital MAGNESIUM LEVEL 2022-05-29 Carolin Sanches Anglican 11:20:00 Hospital PHOSPHORUS LEVEL 2022-05-29 Carolin Sanches Anglican 11:20:00 Hospital PROTHROMBIN TIME WITH INR 2022-05-29 Carolin Sanches Method ist 11:20:00 Hospital ESTIMATED GFR 2022-05-29 Carolin Sanchesist 11:20:00 Hospital SMEAR REVIEW 2022-05-29 Carolin Sanches Anglican 11:20:00 [facility] US UPPER GI TRACT, ENDOSCOPIC 2022-05-28 Carolin Sanches Nd thodist 22:06:00 Hospital CBC WITH PLATELET AND DIFFERENTIAL 2022-05-28 Carolin Sanches Anglican 10:58:00 Hospital BASIC METABOLIC PANEL 2022-05-28 Carolin Sanches Anglican 10:58:00 Hospital HEPATIC FUNCTION PANEL 2022-05-28 Carolin Sanches Anglican 10:58:00 Hospital MAGNESIUM LEVEL 2022-05-28 Carolin Sanches Anglican 10:58:00 Hospital PHOSPHORUS LEVEL 2022-05-28 Carolin Sanches Anglican 10:58:00 Hospital PROTHROMBIN TIME WITH INR 2022-05-28 Carolin Sanches Method ist 10:58:00 Hospital ESTIMATED GFR 2022-05-28 Anabella Suresh 10:58:00 [facility] COVID-19 QUALITATIVE RT-PCR 2022-05-27 Carolin Sanches Meth odist 19:50:00 [facility] CBC WITH PLATELET AND DIFFERENTIAL 2022-05-27 Carolin Sanches Anglican 10:50:00 Hospital BASIC METABOLIC PANEL 2022-05-27 Carolin Sanches Anglican 10:50:00 Hospital HEPATIC FUNCTION PANEL 2022-05-27 Carolin Sanches Anglican 10:50:00 Hospital MAGNESIUM LEVEL 2022-05-27 Carolin Sanches Anglican 10:50:00 Hospital PHOSPHORUS LEVEL 2022-05-27 Carolin Sanches Anglican 10:50:00 Hospital PROTHROMBIN TIME WITH INR 2022-05-27 Carolin Sanches Method ist 10:50:00 Hospital ESTIMATED GFR 2022-05-27 Anabella Suresh 10:50:00 [facility] SMEAR REVIEW 2022-05-27 Anabella Suresh 10:50:00 [facility] XR ABDOMEN 1 VW PORTABLE 2022-05-27 Myra Garcia odist 03:05:14 [facility] CBC WITH PLATELET AND DIFFERENTIAL 2022-05-26 Carolin Sanches Anglican 08:48:00 [facility] BASIC METABOLIC PANEL 2022-05-26 Carolin Sanches Anglican 08:48:00 Hospital HEPATIC FUNCTION PANEL 2022-05-26 Carolin Sanches Anglican 08:48:00 Hospital MAGNESIUM LEVEL 2022-05-26 Carolin Sanches Anglican 08:48:00 Hospital PHOSPHORUS LEVEL 2022-05-26 Carolin Sanches Anglican 08:48:00 Hospital PROTHROMBIN TIME WITH INR 2022-05-26 Carolin Sanches Method ist 08:48:00 Hospital ESTIMATED GFR 2022-05-26 Anabella Suresh 08:48:00 [facility] URINE CULTURE 2022-05-26 Radha Lin Anglican 07:22:00 Hospital URINALYSIS SCREEN AND MICROSCOPY, 2022-05-26 Radha Lin Anglican WITH REFLEX TO CULTURE 05:01:00 [facility] MRI CHOLANGIOGRAM W WO CONTRAST 2022-05-25 Rylee Garcia Anglican 20:35:00 [facility] CBC WITH PLATELET AND DIFFERENTIAL 2022-05-25 Carolin Sanches Anglican 08:57:00 Hospital BASIC METABOLIC PANEL 2022-05-25 Carolin Sanches Anglican 08:57:00 Hospital HEPATIC FUNCTION PANEL 2022-05-25 Carolin Sanches Anglican 08:57:00 Hospital LIPASE LEVEL 2022-05-25 Mayda Anabella Aleman 08:57:00 [facility] ESTIMATED GFR 2022-05-25 Anabella Suresh 08:57:00 [facility] CT ABDOMEN PELVIS WO CONTRAST 2022-05-25 Radha Lin thodist 02:26:53 Hospital ECG ED PRELIMINARY INTERPRETATION 2022-05-25 Radha Lin Anglican 02:01:22 Hospital BLOOD CULTURE, AEROBIC & ANAEROBIC 2022-05-25 Robel Lin Anglican 01:40:00 Hospital AMMONIA LEVEL 2022-05-25 Radha Lin Anglican 01:39:00 Hospital BLOOD CULTURE, AEROBIC & ANAEROBIC 2022-05-25 Robel Lin 01:05:00 Hospital CBC WITH PLATELET AND DIFFERENTIAL 2022-05-25 Rboel Lin Anglican 00:58:00 Hospital HEPATIC FUNCTION PANEL 2022-05-25 Radha Lin Anglican 00:58:00 Hospital BASIC METABOLIC PANEL 2022-05-25 Radha Lin Anglican 00:58:00 Hospital LIPASE LEVEL 2022-05-25 Radha Lin Anglican 00:58:00 Hospital PROTHROMBIN TIME WITH INR 2022-05-25 Radha Lin Method ist 00:58:00 Hospital PARTIAL THROMBOPLASTIN TIME (PTT) 2022-05-25 Radha Lin Anglican 00:58:00 Hospital ESTIMATED GFR 2022-05-25 Radha Lin Anglican 00:58:00 Hospital ECG 12-LEAD 2022-05-24 Radha Lin Anglican 23:16:23 Hospital CBC WITH PLATELET AND DIFFERENTIAL 2022-05-20 Laci Garcia 11:33:00 [facility] SMEAR REVIEW 2022-05-20 Myra Garcia 11:33:00 [facility] ESOPHAGOGASTRODUODENOSCOPY (EGD) 2022-05-19 Elias Guzman 22:20:00 Hospital COLONOSCOPY 2022-05-19 Elias Guzman 22:20:00 Hospital TRANSFUSE PLATELET PHERESIS 2022-05-19 Myra Garcia 20:35:00 [facility] TRANSFUSE FRESH FROZEN PLASMA 2022-05-19 Myra Garcia 18:50:00 [facility] VENIPUNC NEED PHYS SKILL,DX OR RX 2022-05-19 Nav Rooney in Anglican 18:12:02 [facility] CBC WITH PLATELET AND DIFFERENTIAL 2022-05-19 Laci Garcia Anglican 10:42:00 [facility] COMPREHENSIVE METABOLIC PANEL 2022-05-19 Maite Anand thodist 10:42:00 [facility] MAGNESIUM LEVEL 2022-05-19 Maite, Anand Anglican 10:42:00 [facility] PHOSPHORUS LEVEL 2022-05-19 Maite, Anand Anglican 10:42:00 [facility] PROTHROMBIN TIME WITH INR 2022-05-19 Maite, Anand Method ist 10:42:00 [facility] ESTIMATED GFR 2022-05-19 Maite, Anand Anglican 10:42:00 [facility] SMEAR REVIEW 2022-05-19 Myra Garcia 10:42:00 [facility] COVID-19 QUALITATIVE RT-PCR 2022-05-18 Myra Garcia 23:42:00 [facility] CBC WITH PLATELET AND DIFFERENTIAL 2022-05-18 Laci Garcia 10:30:00 [facility] COMPREHENSIVE METABOLIC PANEL 2022-05-18 Maite, Anand Me thodist 10:30:00 [facility] MAGNESIUM LEVEL 2022-05-18 Maite, Anand Anglican 10:30:00 [facility] PHOSPHORUS LEVEL 2022-05-18 Maite, Anand Anglican 10:30:00 [facility] TYPE AND SCREEN 2022-05-18 Maite, Anand Anglican 10:30:00 [facility] PROTHROMBIN TIME WITH INR 2022-05-18 Maite, Anand Method ist 10:30:00 [facility] ESTIMATED GFR 2022-05-18 Maite, Anand Anglican 10:30:00 [facility] SMEAR REVIEW 2022-05-18 Myra Garciaist 10:30:00 [facility] PREPARE FRESH FROZEN PLASMA 2022-05-18 Myra Garcia 10:30:00 [facility] PREPARE PLATELET PHERESIS 2022-05-18 Myra Garcia 10:30:00 [facility] B NATRIURETIC PEPTIDE 2022-05-18 Fadi Thomasis t 00:14:00 [facility] XR CHEST 1 VW PORTABLE 2022-05-17 Myra Garcia Method ist 22:07:00 [facility] CBC WITH PLATELET AND DIFFERENTIAL 2022-05-17 Maite, Anand Anglican 11:08:00 [facility] COMPREHENSIVE METABOLIC PANEL 2022-05-17 Maite, Anand Me thodist 11:08:00 [facility] PROTHROMBIN TIME WITH INR 2022-05-17 Maite, Anand Method ist 11:08:00 [facility] ESTIMATED GFR 2022-05-17 Maite, Anand Anglican 11:08:00 [facility] SMEAR REVIEW 2022-05-17 Maite, Anand Anglican 11:08:00 [facility] CBC WITH PLATELET AND DIFFERENTIAL 2022-05-16 Maite, Anand Anglican 11:27:00 [facility] COMPREHENSIVE METABOLIC PANEL 2022-05-16 Anand Arora Me thodist 11:27:00 [facility] PROTHROMBIN TIME WITH INR 2022-05-16 Anand Arora Method ist 11:27:00 [facility] ESTIMATED GFR 2022-05-16 Anand Arora Anglican 11:27:00 [facility] CREATINE KINASE, TOTAL (CPK) 2022-05-16 Anand Arora Met hodist 11:27:00 [facility] SMEAR REVIEW 2022-05-16 Anand Arora Anglican 11:27:00 [facility] BLOOD CULTURE, AEROBIC & ANAEROBIC 2022-05-15 Leah Sandoval Anglican 12:56:00 [facility] CBC WITH PLATELET AND DIFFERENTIAL 2022-05-15 Laci Garcia Anglican 11:11:00 [facility] CREATINE KINASE, TOTAL (CPK) 2022-05-15 Jeremy Sandoval hodist 11:11:00 [facility] COMPREHENSIVE METABOLIC PANEL 2022-05-15 Jeremy Sandoval thodist 11:11:00 [facility] PROTHROMBIN TIME WITH INR 2022-05-15 Jeremy Sandoval Method ist 11:11:00 [facility] ESTIMATED GFR 2022-05-15 Jeremy Sandoval Anglican 11:11:00 [facility] SMEAR REVIEW 2022-05-15 Myra Garcia Anglican 11:11:00 [facility] CT ANGIOGRAM PE CHEST 2022-05-14 Jeremy Sandoval Anglican 20:38:17 [facility] CBC WITH PLATELET AND DIFFERENTIAL 2022-05-14 Laci Garcia Anglican 12:29:00 [facility] COMPREHENSIVE METABOLIC PANEL 2022-05-14 Jeremy Sandoval thodist 12:29:00 [facility] PROTHROMBIN TIME WITH INR 2022-05-14 Jeremy Sandoval Method ist 12:29:00 [facility] ESTIMATED GFR 2022-05-14 Jeremy Sandoval Anglican 12:29:00 [facility] SMEAR REVIEW 2022-05-14 Myra Garcia Anglican 12:29:00 [facility] MRI HIP WWO CONTRAST RT 2022-05-13 Neelima Pettit Method ist 20:11:00 [facility] MRI THIGH W WO CONTRAST LEFT 2022-05-13 Beverly Thompson hodist 19:57:00 Hospital VANCOMYCIN LEVEL, TROUGH 2022-05-[address] 09:42:00 [facility] TOTAL IRON BINDING CAPACITY 2022-05-13 Myra Garcia 09:42:00 [facility] FERRITIN LEVEL 2022-05-13 Myra Garcia 09:42:00 [facility] CBC WITH PLATELET AND DIFFERENTIAL 2022-05-13 Laci Garcia Anglican 09:42:00 [facility] COMPREHENSIVE METABOLIC PANEL 2022-05-13 Jeremy Sandoval thodist 09:42:00 [facility] PROTHROMBIN TIME WITH INR 2022-05-13 Jeremy Sandoval Method ist 09:42:00 [facility] ESTIMATED GFR 2022-05-13 Jeremy Sandoval Anglican 09:42:00 [facility] SMEAR REVIEW 2022-05-13 Myra Garcia 09:42:00 [facility] CREATINE KINASE, TOTAL (CPK) 2022-05-13 Jeremy Sandoval hodist 09:42:00 [facility] OCCULT BLOOD, STOOL 2022-05-13 Myra Garcia 00:59:00 [facility] TRANSFUSE RED BLOOD CELLS 2022-05-12 Jeremy Sandoval Method ist 17:00:00 [facility] ALDOLASE, SERUM 2022-05-12 Beverly Thompson Anglican 10:36:00 Hospital MYOGLOBIN 2022-05-12 Beverly Thompson Anglican 10:36:00 Hospital CBC WITH PLATELET AND DIFFERENTIAL 2022-05-12 MichelakarLeah Anglican 10:36:00 [facility] PROTHROMBIN TIME WITH INR 2022-05-12 DinarJeremy Method ist 10:36:00 [facility] PHOSPHORUS LEVEL 2022-05-12 DinarJeremy Anglican 10:36:00 [facility] TYPE AND SCREEN 2022-05-12 DinarJeremy Anglican 10:36:00 [facility] BASIC METABOLIC PANEL 2022-05-12 DinakarJeremy Anglican 10:36:00 [facility] HEPATIC FUNCTION PANEL 2022-05-12 Jeremy Sandoval 10:36:00 [facility] MAGNESIUM LEVEL 2022-05-12 Jeremy Sandoval 10:36:00 [facility] ESTIMATED GFR 2022-05-12 Jeremy Sandoval 10:36:00 [facility] SMEAR REVIEW 2022-05-12 Jeremy Sandoval 10:36:00 [facility] PREPARE RBC 2022-05-12 Jeremy Sandoval 10:36:00 [facility] ESTIMATED GFR 2022-05-12 Jeremy Sandoval 09:48:00 [facility] XR HIP 2-3 VIEWS RIGHT 2022-05-[address] 05:48:10 [facility] XR ABDOMEN 1 VW PORTABLE 2022-05-[address] 03:18:49 [facility] ECG 12-LEAD 2022-05-12 Jeremy Sandoval 02:48:48 [facility] TROPONIN T 2022-05-12 Jeremy Sandoval 02:16:00 [facility] XR ABDOMEN 1 VW PORTABLE 2022-05-11 Myra Garcia odist 23:42:38 [facility] VENIPUNC NEED PHYS SKILL,DX OR RX 2022-05-11 David Lambert 18:13:11 Hospital LDH 2022-05-11 Jeremy Sandoval 11:15:00 [facility] SS-B ANTIBODY 2022-05-11 Jeremy Sandoval 11:15:00 [facility] SEDIMENTATION RATE 2022-05-11 Jeremy Sandoval 11:15:00 [facility] C-REACTIVE PROTEIN 2022-05-11 Jeremy Sandoval 11:15:00 [facility] ALDOLASE, SERUM 2022-05-11 Skylar Lopez 11:15:00 Hospital ANTINUCLEAR ANTIBODIES (LUIS ANGEL) WITH 2022-05-11 Parveen Lopez REFLEX TO TITER AND PATTERN, 11:15:00 Hos pital IMMUNOFLUORESCENCE PROTHROMBIN TIME WITH INR 2022-05-11 Jeremy Sandoval ist 11:15:00 [facility] CBC WITH PLATELET AND DIFFERENTIAL 2022-05-11 Leah Sandoval Anglican 11:15:00 [facility] BASIC METABOLIC PANEL 2022-05-11 DinhomarJeremy Anglican 11:15:00 [facility] ESTIMATED GFR 2022-05-11 MichelakaJeremy gallardo Anglican 11:15:00 [facility] HEPATIC FUNCTION PANEL 2022-05-11 DinakarJeremy Anglican 11:15:00 [facility] MAGNESIUM LEVEL 2022-05-11 DinakarJeremy Anglican 11:15:00 [facility] PHOSPHORUS LEVEL 2022-05-11 MichelakarJeremy Anglican 11:15:00 [facility] SMEAR REVIEW 2022-05-11 DinarJeremy Anglican 11:15:00 [facility] CBC WITH PLATELET AND DIFFERENTIAL 2022-05-10 MaiteAndriye Anglican 12:52:00 [facility] COMPREHENSIVE METABOLIC PANEL 2022-05-10 Maite, Anand Me thodist 12:52:00 [facility] PROTHROMBIN TIME WITH INR 2022-05-10 Maite, Anand Method ist 12:52:00 [facility] CREATINE KINASE, TOTAL (CPK) 2022-05-10 Jeremy Sandoval 12:52:00 [facility] ESTIMATED GFR 2022-05-10 Andriy Arorae Anglican 12:52:00 [facility] SMEAR REVIEW 2022-05-10 Maite, Anand Anglican 12:52:00 [facility] ENTERIC BACTERIAL PANEL 2022-05-09 Maite, Anand Methodis t 22:01:00 [facility] ENTERIC PARASITIC PANEL 2022-05-09 Maite, Anand Methodis t 22:01:00 [facility] ENTERIC VIRAL PANEL 2022-05-09 Maite, Anand Anglican 22:01:00 [facility] CBC WITH PLATELET AND DIFFERENTIAL 2022-05-09 Maite, Anand Anglican 11:40:00 [facility] COMPREHENSIVE METABOLIC PANEL 2022-05-09 Maite, Anand Me thodist 11:40:00 [facility] PROTHROMBIN TIME WITH INR 2022-05-09 Maite, Anand Method ist 11:40:00 [facility] MAGNESIUM LEVEL 2022-05-09 Jeremy Sandoval Anglican 11:40:00 [facility] PHOSPHORUS LEVEL 2022-05-09 Jeremy Sandoval Anglican 11:40:00 [facility] ESTIMATED GFR 2022-05-09 Maite Anand Anglican 11:40:00 [facility] SMEAR REVIEW 2022-05-09 Maite Anand Anglican 11:40:00 [facility] CREATINE KINASE, TOTAL (CPK) 2022-05-09 Jeremy Sandoval Met hodist 00:45:00 [facility] XR KNEE 3 VW BILATERAL 2022-05-08 Jeremy Sandoval Anglican 21:35:00 [facility] BLOOD CULTURE, AEROBIC & ANAEROBIC 2022-05-08 Leah Sandoval Anglican 21:17:00 [facility] XR CHEST 1 VW PORTABLE 2022-05-08 Jeremy Sandoval Anglican 16:17:21 [facility] CBC WITH PLATELET AND DIFFERENTIAL 2022-05-08 Anand Arora Anglican 11:00:00 [facility] PROTHROMBIN TIME WITH INR 2022-05-08 Anand Arora Method ist 11:00:00 [facility] MAGNESIUM LEVEL 2022-05-08 MaiteAndriye Anglican 11:00:00 [facility] PHOSPHORUS LEVEL 2022-05-08 Maite, Anand Anglican 11:00:00 [facility] COMPREHENSIVE METABOLIC PANEL 2022-05-08 Anand Arora thodist 11:00:00 [facility] ESTIMATED GFR 2022-05-08 Maite, Anand Anglican 11:00:00 [facility] SMEAR REVIEW 2022-05-08 Anand Arora Anglican 11:00:00 [facility] ESTIMATED GFR 2022-05-08 Maite, Anand Anglican 08:33:00 [facility] US DUPLEX VENOUS LOWER EXTREMITY 2022-05-07 Manjit Garcia Anglican BILATERAL 20:55:00 [facility] ALPHA FETOPROTEIN 2022-05-07 Myra Garcia 09:36:00 [facility] PROTHROMBIN TIME WITH INR 2022-05-07 Myra Garcia Met hodist 09:36:[address] [facility] [address] ABDOMEN PELVIS W CONTRAST 2022-05-06 Oneil Rodriguez Met hodist 22:48:13 Hospital URINE CULTURE 2022-05-06 Aimee Ward 22:05:00 Hospital URINALYSIS SCREEN AND MICROSCOPY, 2022-05-06 Hemant Ward WITH REFLEX TO CULTURE 21:43:00 Hospital COVID-19, INFLUENZA A&B, AND RSV 2022-05-06 Aimee Ward QUALITATIVE RT-PCR 21:13:00 [facility] CBC WITH PLATELET AND DIFFERENTIAL 2022-05-06 Fidel Ward 20:15:00 [facility] COMPREHENSIVE METABOLIC PANEL 2022-05-06 Aimee Ward 20:15:00 Hospital LIPASE LEVEL 2022-05-06 Aimee Ward 20:15:00 Hospital ESTIMATED GFR 2022-05-06 Aimee Ward 20:15:00 Hospital SMEAR REVIEW 2022-05-06 Aimee Ward 20:15:00 Hospital EKG-12 LEAD 2022-04-16 Estephania Flood [facility] of 04:17:16 [facility] XR CHEST 2 VW 2022-04-16 Estephania Flood [facility] of 03:21:40 [facility] TROPONIN I 2022-04-16 Aleena [facility] of 02:46:00 [facility] HEPATIC FUNCTION PANEL ([id number]) 2022-04-16 Estephania Flood niversity of (ALB,T.PRO,BILI 02:46:00 [facility],BU/BC,ALT,AST,ALK PHOS) [place] BASIC METABOLIC PANEL (NA, K, CL, 2022-04-16 Estephania Flood Marshall of CO2, GLUCOSE, BUN, CREATININE, CA) 02:46:00 [facility] CBC WITH DIFF 2022-04-16 Estephania Flood [facility] of 02:46:00 [facility] URINALYSIS 2022-04-16 Aleena [facility] of 02:46:00 [facility] RAPID STREP SCREEN FOR GROUP A 2022-04-16 Estephania Flood niversity of 02:46:00 [facility] RAPID INFLUENZA A/B 2022-04-16 Estephania Flood o f 02:46:00 [facility] N-TERMINAL PRO-BNP 2022-04-16 [facility] 02:46[facility] COVID-19 (ID NOW RAPID TESTING) 2022-04-16 [facility] of 02:46:00 [facility] NOTICE OF PRIVACY PRACTICES 2022-04-16 Doctor Unasslis, U niversity of 02:08:07 [facility] CONSENT/REFUSAL FOR DIAGNOSIS AND 2022-04-16 Doctor Buck olmedo, [facility] 02:07:40 [facility] CREATINE KINASE 2022-04-10 Emily Salgado [facility] 02:05:00 [facility] MAGNESIUM 2022-04-10 Emily Salgado [facility] 02:05:00 [facility] AMMONIA, PLASMA 2022-04-10 Emily Salgado [facility] 02:05:00 [facility] COMP. METABOLIC PANEL (20865) 2022-04-10 Emily Salgado [facility] 02:05:00 [facility] CBC WITH DIFF 2022-04-10 Emily Salgado [facility] 02:05:00 [facility] PROTHROMBIN TIME / INR 2022-04-10 [facility] 02:05[facility]00 [facility] URINALYSIS 2022-04-10 Emily Salgado [facility] 02:05:00 [facility] CONSENT/REFUSAL FOR DIAGNOSIS AND 2022-04-10 [facility] 01:08[facility]41 [place] [facility] XR SHOULDER 2+ VW LEFT 2022-02-27 Viviana Ward 15:01:00 Hospital CBC WITH PLATELET AND DIFFERENTIAL 2022-02-27 Leah Sandoval 10:39:00 [facility] PROTHROMBIN TIME WITH INR 2022-02-27 Jeremy Sandoval ist 10:39:00 [facility] BASIC METABOLIC PANEL 2022-02-27 Jeremy Sandoval 10:39:00 [facility] HEPATIC FUNCTION PANEL 2022-02-27 Jeremy Sandoval 10:39:00 [facility] PHOSPHORUS LEVEL 2022-02-27 Jeremy Sandoval 10:39:00 [facility] MAGNESIUM LEVEL 2022-02-27 Jeremy Sandoval 10:39:00 [facility] ESTIMATED GFR 2022-02-27 Jeremy Sandoval Anglican 10:39:00 [facility] SMEAR REVIEW 2022-02-27 Jeremy Sandoval 10:39:00 [facility] POC GLUCOSE 2022-02-27 Jeremy Sandoval 09:38:00 [facility] CBC WITH PLATELET AND DIFFERENTIAL 2022-02-26 Leah Sandoval Anglican 11:53:00 [facility] PROTHROMBIN TIME WITH INR 2022-02-26 Jeremy Sandoval Method ist 11:53:00 [facility] BASIC METABOLIC PANEL 2022-02-26 DinarJeremy Anglican 11:53:00 [facility] HEPATIC FUNCTION PANEL 2022-02-26 Jeremy Sandoval Anglican 11:53:00 [facility] PHOSPHORUS LEVEL 2022-02-26 Jeremy Sandoval Anglican 11:53:00 [facility] MAGNESIUM LEVEL 2022-02-26 Jeremy Sandoval Anglican 11:53:00 [facility] HEMOGLOBIN A1C 2022-02-26 Jeremy Sandoval Anglican 11:53:00 [facility] ESTIMATED GFR 2022-02-26 Jeremy Sandoval Anglican 11:53:00 [facility] SMEAR REVIEW 2022-02-26 Jeremy Sandoval Anglican 11:53:00 [facility] AMYLASE LEVEL 2022-02-26 Jeremy Sandoval Anglican 11:53:00 [facility] GASTROINTESTINAL PANEL 2022-02-26 Myra Garcia ist 03:50:00 [facility] GASTROINTESTINAL PATHOGENS PANEL, 2022-02-26 Faustino Garcia Anglican PCR 03:50:00 [facility] BLOOD CULTURE, AEROBIC & ANAEROBIC 2022-02-25 Laci Garcia Anglican 23:25:00 [facility] COVID-19 QUALITATIVE RT-PCR 2022-02-25 Stevo Hoskins odist 23:24:00 [facility] BLOOD CULTURE, AEROBIC & ANAEROBIC 2022-02-25 Laci Garcia Anglican 23:10:00 [facility] US ABDOMINAL LIMITED 2022-02-25 Myra Garcia t 21:58:00 [facility] CT ABDOMEN PELVIS W CONTRAST 2022-02-25 Stevo Hoskins hodist 21:28:38 [facility] ECG ED PRELIMINARY INTERPRETATION 2022-02-25 Rehrer, [place] Anglican 20:37:40 [facility] PROTHROMBIN TIME WITH INR 2022-02-25 Rehrer, [place] Method ist 20:18:00 [facility] PARTIAL THROMBOPLASTIN TIME (PTT) 2022-02-25 Rehrer, [place] [facility] 20:18:00 [facility] CBC WITH PLATELET AND DIFFERENTIAL 2022-02-25 Rehrer, [place] [facility] 19:55:00 [facility] COMPREHENSIVE METABOLIC PANEL 2022-02-25 Rehrer, [facility] thodist 19:55:00 [facility] LIPASE LEVEL 2022-02-25 Rehrer, [place] [facility] 19:55:00 [facility] ESTIMATED GFR 2022-02-25 Rehrer, [place] [facility] 19:55:00 [facility] ECG 12-LEAD 2022-02-25 Rehrer, [place] [facility] 18:42:27 [facility] RAPID INFLUENZA A/B 2022-02-15 Singer [facility] o f 21:31:00 [facility] COVID-19 (ID NOW RAPID TESTING) 2022-02-15 Ayers, [facility] of 21:31:00 [facility] URINALYSIS 2022-02-15 Singer [facility] of 21:04:00 [facility] CT ABDOMEN PELVIS W CONTRAST 2022-02-15 Florian Ayers Uni versity of 20:35:57 [facility] LIPASE 2022-02-15 Ayers, [facility] of 20:15:00 [facility] COMP. METABOLIC PANEL (21783) 2022-02-15 Florian Ayers Un iversity of 20:15:00 [facility] CBC WITH DIFF 2022-02-15 [place] [facility] of 20:15:00 [facility] CONSENT/REFUSAL FOR DIAGNOSIS AND 2022-02-15 [facility] 19:31:00 [place] [facility] PROTHROMBIN TIME WITH INR 2022-02-04 Carolin Sanches ist 11:20:00 Hospital PHOSPHORUS LEVEL 2022-02-04 Carolin Sanches 11:20:00 Hospital MAGNESIUM LEVEL 2022-02-04 Sanches, Coe M. Anglican 11:20:00 Hospital BASIC METABOLIC PANEL 2022-02-04 Carolin Sanches Anglican 11:20:00 Hospital HEPATIC FUNCTION PANEL 2022-02-04 Carolin Sanches Anglican 11:20:00 Hospital CBC HEMOGRAM 2022-02-04 Carolin Sanches Anglican 11:20:00 Hospital ESTIMATED GFR 2022-02-04 Carolin Sanches Anglican 11:20:00 Hospital SMEAR REVIEW 2022-02-04 Carolin Sanches Anglican 11:20:00 [facility] US UPPER GI TRACT, ENDOSCOPIC 2022-02-03 Carolin Sanches Me thodist 19:36:00 Hospital PROTHROMBIN TIME WITH INR 2022-02-03 Carolin Sanches Method ist 09:29:00 Hospital PHOSPHORUS LEVEL 2022-02-03 Carolin Sanches Anglican 09:29:00 Hospital MAGNESIUM LEVEL 2022-02-03 Carolin Sanches Anglican 09:29:00 Hospital BASIC METABOLIC PANEL 2022-02-03 Carolin Sanches Anglican 09:29:00 Hospital HEPATIC FUNCTION PANEL 2022-02-03 Carolin Sanches Anglican 09:29:00 Hospital CBC HEMOGRAM 2022-02-03 Carolin Sanches Anglican 09:29:00 Hospital ESTIMATED GFR 2022-02-03 Nancy Nakia Anglican 09:29:00 Hospital SMEAR REVIEW 2022-02-03 Nakia Cruz Anglican 09:29:00 Hospital PROTHROMBIN TIME WITH INR 2022-02-02 Carolin Sanches Method ist 09:08:00 Hospital PHOSPHORUS LEVEL 2022-02-02 Carolin Sanches Anglican 09:08:00 Hospital MAGNESIUM LEVEL 2022-02-02 Carolin Sanches Anglican 09:08:00 Hospital BASIC METABOLIC PANEL 2022-02-02 Carolin Sanches Anglican 09:08:00 Hospital HEPATIC FUNCTION PANEL 2022-02-02 Carolin Sanches Anglican 09:08:00 Hospital CBC HEMOGRAM 2022-02-02 Carolin Sanches Anglican 09:08:00 Hospital ESTIMATED GFR 2022-02-02 Nakia Cruz 09:08:00 Hospital SMEAR REVIEW 2022-02-02 Nakia Cruz 09:08:00 Hospital XR ABDOMEN 1 VW PORTABLE 2022-02-01 Myra Garcia odist 22:39:25 [place] [id number] ANTI-SPIKE IGG ANTIBODY 2022-02-01 Deepak Ward Anglican TITER 11:37:00 Hospital CBC WITH PLATELET AND DIFFERENTIAL 2022-02-01 Deepak Ward Anglican 11:37:00 Hospital PROTHROMBIN TIME WITH INR 2022-02-01 Carolin Sanches ist 11:37:00 [facility] COMPREHENSIVE METABOLIC PANEL 2022-02-01 Bebeto Ward ethodist 11:37:00 Hospital PHOSPHORUS LEVEL 2022-02-01 Carolin Sanches Anglican 11:37:00 Hospital MAGNESIUM LEVEL 2022-02-01 Carolin Sanches Anglican 11:37:00 Hospital THYROID STIMULATING HORMONE 2022-02-01 Bebeto Ward Met hodist 11:37:00 Hospital T4 2022-02-01 Bebeto Wardist 11:37:00 Hospital VITAMIN D 25 HYDROXY LEVEL 2022-02-01 Bebeto Ward odist 11:37:00 [place] [address] SEROLOGY PATIENT 2022-02-01 Bebeto Ward hodist SURVEILLANCE 11:37:00 Hospital ESTIMATED GFR 2022-02-01 Bebeto Ward 11:37:00 Hospital SMEAR REVIEW 2022-02-01 Bebeto Ward 11:37:00 Hospital COVID-19 QUALITATIVE RT-PCR 2022-02-01 June Clark Met hodist 03:59:00 [facility] LACTIC ACID LEVEL, SEPSIS - NOW 2022-02-01 Bebeto Ward AND REPEAT 2X EVERY 3 HOURS 03:45:[address] ABDOMEN PELVIS W CONTRAST 2022-02-01 June Clark thodist 02:53:55 [facility] BLOOD CULTURE, AEROBIC & ANAEROBIC 2022-02-01 Johnna Clark 02:09:00 [facility] URINE CULTURE 2022-02-01 June Clark 01:50:00 [facility] URINALYSIS SCREEN AND MICROSCOPY, 2022-02-01 Cristopher Clarkist WITH REFLEX TO CULTURE 01:50:00 [facility] COMPREHENSIVE METABOLIC PANEL 2022-02-01 Rolando Olivier 01:47:00 Hospital LIPASE LEVEL 2022-02-01 Rolando Olivier 01:47:00 Hospital ESTIMATED GFR 2022-02-01 Rolando Olivier 01:47:00 Hospital LACTIC ACID LEVEL, SEPSIS - NOW 2022-02-01 Bebeto Ward Anglican AND REPEAT 2X EVERY 3 HOURS 01:47:00 [facility] PROTHROMBIN TIME WITH INR 2022-02-01 June Clark Metho dist 01:47:00 [facility] PARTIAL THROMBOPLASTIN TIME (PTT) 2022-02-01 Cristopher Clark 01:47:00 [facility] AMMONIA LEVEL 2022-02-01 June Clark 01:47:00 [facility] BLOOD CULTURE, AEROBIC & ANAEROBIC 2022-02-01 Johnna Clark 01:45:00 [facility] ECG ED PRELIMINARY INTERPRETATION 2022-02-01 Cristopher Clark 01:18:19 [facility] URINE CULTURE 2022-02-01 Rolando Olivier 01:17:00 Hospital CBC WITH PLATELET AND DIFFERENTIAL 2022-02-01 Rolando Olivier 01:17:00 Hospital URINALYSIS SCREEN AND MICROSCOPY, 2022-02-01 Rolando Olivier Anglican WITH REFLEX TO CULTURE 01:17:00 Hospital SMEAR REVIEW 2022-02-01 Rolando Olivier 01:17:00 Hospital ECG 12-LEAD 2022-01-31 Rolando Olivier 23:14:20 Hospital POC GLUCOSE 2022-01-06 Jeremy Sandoval 17:53:00 [facility] CBC WITH PLATELET AND DIFFERENTIAL 2022-01-06 Nakia Cruz 09:49:00 Hospital PROTHROMBIN TIME WITH INR 2022-01-06 Li, Nakia Method ist 09:49:00 Hospital COMPREHENSIVE METABOLIC PANEL 2022-01-06 Jeremy Sandoval Me thodist 09:49:00 [facility] ESTIMATED GFR 2022-01-06 Jeremy Sandovalist 09:49:00 [facility] SMEAR REVIEW 2022-01-06 Nakia Cruz Anglican 09:49:00 Hospital SURGICAL PATHOLOGY REQUEST 2022-01-05 Jeremy Sandoval Metho dist 21:05:00 [facility] ESOPHAGOGASTRODUODENOSCOPY (EGD) 2022-01-05 Elias Guzman 20:55:00 Hospital CBC WITH PLATELET AND DIFFERENTIAL 2022-01-05 Nakia Cruzist 09:38:00 Hospital PROTHROMBIN TIME WITH INR 2022-01-05 Nakia Cruz Method ist 09:38:00 Hospital COMPREHENSIVE METABOLIC PANEL 2022-01-05 Nakia Curz Me thodist 09:38:00 Hospital PHOSPHORUS LEVEL 2022-01-05 Nakia Cruz Anglican 09:38:00 Hospital MAGNESIUM LEVEL 2022-01-05 Nakia Cruz Anglican 09:38:00 Hospital ESTIMATED GFR 2022-01-05 Nakia Cruz Anglican 09:38:00 Hospital SMEAR REVIEW 2022-01-05 Nakia Cruzist 09:38:00 Hospital XR ABDOMEN 1 VW PORTABLE 2022-01-[address] 16:05:00 [facility] CBC WITH PLATELET AND DIFFERENTIAL 2022-01-04 Nakia Cruzist 09:33:00 Hospital PROTHROMBIN TIME WITH INR 2022-01-04 Nakia Cruz Method ist 09:33:00 Hospital COMPREHENSIVE METABOLIC PANEL 2022-01-04 Nakia Cruz thodist 09:33:00 Hospital PHOSPHORUS LEVEL 2022-01-04 Nakia Cruz Anglican 09:33:00 Hospital MAGNESIUM LEVEL 2022-01-04 Tripp Cruzg Anglican 09:33:00 Hospital ESTIMATED GFR 2022-01-04 Nakia Cruz Anglican 09:33:00 Hospital SMEAR REVIEW 2022-01-04 Nakia Cruz Anglican 09:33:00 Hospital XR ABDOMEN 1 VW PORTABLE 2022-01-03 Dinhomar, Jeremy Methodi st 16:09:48 [facility] ANTI-SPIKE IGG ANTIBODY 2022-01-03 Leah Sandoval sade Rileyist TITER 09:01:00 [facility] CBC WITH PLATELET AND DIFFERENTIAL 2022-01-03 Nakia Cruz 09:01:00 [facility] PROTHROMBIN TIME WITH INR 2022-01-03 Nakia Cruz ist 09:01:00 Hospital COMPREHENSIVE METABOLIC PANEL 2022-01-03 Nakia Cruz thodist 09:01:00 Hospital PHOSPHORUS LEVEL 2022-01-03 Nakia Cruzist 09:01:00 Hospital MAGNESIUM LEVEL 2022-01-03 Nakia Cruz 09:01:00 Hospital HEMOGLOBIN A1C 2022-01-03 Nakia Cruz 09:01:00 [facility] THYROID STIMULATING HORMONE 2022-01-03 Nakia Cruz odist 09:01:00 Hospital T4 2022-01-03 Nakia Cruz 09:01:00 Hospital VITAMIN D 25 HYDROXY LEVEL 2022-01-03 Nakia Cruzo dist 09:01:00 [place] [address] SEROLOGY PATIENT 2022-01-03 Jeremy Sandoval odcrow SURVEILLANCE 09:01:00 [facility] AMYLASE LEVEL 2022-01-03 Cassandra Johnson 09:01:00 [facility] ESTIMATED GFR 2022-01-03 Nakia Cruz 09:01:00 Hospital SMEAR REVIEW 2022-01-03 Nakia Cruz 09:01:00 Hospital LIPASE LEVEL 2022-01-03 Nakia Cruz 09:01:00 Hospital XR ABDOMEN 1 VW PORTABLE 2022-01-02 Cassandra Johnson odist 15:46:00 [facility] URINALYSIS SCREEN AND MICROSCOPY, 2022-01-02 Vandana Bernstein WITH REFLEX TO CULTURE 10:37:00 [facility] HCG QUALITATIVE, URINE SCREEN 2022-01-02 Vandana Bernstein thodist 10:37:00 [facility] URINE CULTURE 2022-01-02 Vandana Bernstein 10:34:00 [facility] COVID-19 QUALITATIVE RT-PCR 2022-01-02 Vandana Bernstein Meth odist 10:26:[address] [facility] [address] ABDOMEN PELVIS W CONTRAST 2022-01-02 Vandnaa Bernstein Met hodist 08:56:21 [facility] CBC WITH PLATELET AND DIFFERENTIAL 2022-01-02 Jovan Bernsteinali Anglican 05:47:00 [facility] COMPREHENSIVE METABOLIC PANEL 2022-01-02 Vandana Bernstein Me thodist 05:47:00 [facility] LIPASE LEVEL 2022-01-02 Amandeep Vandana Anglican 05:47:00 [facility] PROTHROMBIN TIME WITH INR 2022-01-02 AmandeepVandana Method ist 05:47:00 [facility] PARTIAL THROMBOPLASTIN TIME (PTT) 2022-01-02 Amandeep Vandana Anglican 05:47:00 [facility] ESTIMATED GFR 2022-01-02 Amandeep Vandana Anglican 05:47:00 [facility] SMEAR REVIEW 2022-01-02 BernsteinVandana Anglican 05:47:00 [facility] CBC WITH PLATELET AND DIFFERENTIAL 2021-12-18 Dinakar, Sati sh Anglican 10:19:00 [facility] PROTHROMBIN TIME WITH INR 2021-12-18 Dinakar, Jeremy Method ist 10:19:00 [facility] BASIC METABOLIC PANEL 2021-12-18 Dinakar, Jeremy Anglican 10:19:00 [facility] HEPATIC FUNCTION PANEL 2021-12-18 Dinakar Jeremy Anglican 10:19:00 [facility] PHOSPHORUS LEVEL 2021-12-18 Dinakar, Jeremy Anglican 10:19:00 [facility] MAGNESIUM LEVEL 2021-12-18 Dinakar, Jeremy Anglican 10:19:00 [facility] ESTIMATED GFR 2021-12-18 Dinakar, Jeremy Anglican 10:19:00 [facility] SMEAR REVIEW 2021-12-18 Michelakar Jeremy Anglican 10:19:00 [facility] CBC WITH PLATELET AND DIFFERENTIAL 2021-12-17 Dinakar, Sati sh Anglican 11:45:00 [facility] PROTHROMBIN TIME WITH INR 2021-12-17 Dinakar, Jeremy Method ist 11:45:00 [facility] BASIC METABOLIC PANEL 2021-12-17 Jeremy Sandoval Anglican 11:45:00 [facility] HEPATIC FUNCTION PANEL 2021-12-17 DinarJeremy Anglican 11:45:00 [facility] PHOSPHORUS LEVEL 2021-12-17 Dinar Jeremy Anglican 11:45:00 [facility] MAGNESIUM LEVEL 2021-12-17 Dinar, Jeremy Anglican 11:45:00 [facility] ESTIMATED GFR 2021-12-17 Jeremy Sandoval Anglican 11:45:00 [facility] SMEAR REVIEW 2021-12-17 DinarJeremy Anglican 11:45:00 [facility] NM GI BLEEDING STUDY 2021-12-16 Elias Guzman 20:06:11 [facility] MRI CHOLANGIOGRAM WO CONTRAST 2021-12-16 Elias Guzman thodist 13:57:00 [facility] MRI ABDOMEN W WO CONTRAST 2021-12-16 Elias Guzman Method ist 13:56:00 Hospital CBC WITH PLATELET AND DIFFERENTIAL 2021-12-16 eLah Sandoval Anglican 11:26:00 [facility] PROTHROMBIN TIME WITH INR 2021-12-16 Jeremy Sandoval Method ist 11:26:00 [facility] BASIC METABOLIC PANEL 2021-12-16 Jeremy Sandoval Anglican 11:26:00 [facility] HEPATIC FUNCTION PANEL 2021-12-16 Jeremy Sandoval Anglican 11:26:00 [facility] PHOSPHORUS LEVEL 2021-12-16 Jeremy Sandoval Anglican 11:26:00 [facility] MAGNESIUM LEVEL 2021-12-16 Jeremy Sandoval Anglican 11:26:00 [facility] ESTIMATED GFR 2021-12-16 Jeremy Sandoval Anglican 11:26:00 [facility] SMEAR REVIEW 2021-12-16 Jeremy Sandoval Anglican 11:26:00 [facility] BASIC METABOLIC PANEL 2021-12-15 Bebeto Ward Anglican 12:30:00 Hospital ESTIMATED GFR 2021-12-15 Bebeto Ward Anglican 12:30:00 Hospital HEPATIC FUNCTION PANEL 2021-12-15 Bebeto Ward t 12:30:00 Hospital MAGNESIUM LEVEL 2021-12-15 Bebeto Ward Anglican 12:30:00 Hospital PHOSPHORUS LEVEL 2021-12-15 WardBebeto sanches Anglican 12:30:00 Hospital CBC HEMOGRAM 2021-12-15 Bebeto Ward Anglican 12:30:00 Hospital PROTHROMBIN TIME WITH INR 2021-12-15 Bebeto Ward Metho dist 12:30:00 Hospital C-REACTIVE PROTEIN 2021-12-15 Bebeto Wadr Anglican 12:30:00 Hospital SMEAR REVIEW 2021-12-15 Bebeto Ward Anglican 12:30:00 Hospital CBC WITH PLATELET AND DIFFERENTIAL 2021-12-15 Dinakar, Leah stuart Anglican 11:14:00 [facility] CBC WITH PLATELET AND DIFFERENTIAL 2021-12-15 Dinakar, Leah stuart Anglican 11:14:00 [facility] PROTHROMBIN TIME WITH INR 2021-12-15 Dinakar, Jeremy Method ist 11:14:00 [facility] BASIC METABOLIC PANEL 2021-12-15 Dinakar, Jeremy Anglican 11:14:00 [facility] HEPATIC FUNCTION PANEL 2021-12-15 Dinakar, Jeremy Anglican 11:14:00 [facility] PHOSPHORUS LEVEL 2021-12-15 Dinakar, Jeremy Anglican 11:14:00 [facility] MAGNESIUM LEVEL 2021-12-15 Dinakar, Jeremy Anglican 11:14:00 [facility] C-REACTIVE PROTEIN 2021-12-15 Bebeto Ward Anglican 11:14:00 Hospital ESTIMATED GFR 2021-12-15 Dinakar, Jeremy Anglican 11:14:00 [facility] CBC WITH PLATELET AND DIFFERENTIAL 2021-12-14 Dinakar, Sati sh Anglican 10:39:00 [facility] PROTHROMBIN TIME WITH INR 2021-12-14 Dinakar, Jeremy Method ist 10:39:00 [facility] BASIC METABOLIC PANEL 2021-12-14 Dinakar, Jeremy Anglican 10:39:00 [facility] HEPATIC FUNCTION PANEL 2021-12-14 Dinakar, Jeremy Anglican 10:39:00 [facility] PHOSPHORUS LEVEL 2021-12-14 Dinakar, Jeremy Anglican 10:39:00 [facility] MAGNESIUM LEVEL 2021-12-14 Jeremy Sandoval Anglican 10:39:00 [facility] C-REACTIVE PROTEIN 2021-12-14 Bebeto Ward Anglican 10:39:00 Hospital FERRITIN LEVEL 2021-12-14 Bebeto Ward Anglican 10:39:00 Hospital FOLATE LEVEL 2021-12-14 Bebeto Ward Anglican 10:39:00 Hospital HAPTOGLOBIN 2021-12-14 Bebeto Ward Anglican 10:39:00 Hospital VITAMIN B12 LEVEL 2021-12-14 Bebeto Ward Anglican 10:39:00 Hospital TOTAL IRON BINDING CAPACITY 2021-12-14 Bebeto Ward Met hodcrow 10:39:00 Hospital RETICULOCYTE COUNT 2021-12-14 eBbeto Ward Anglican 10:39:00 Hospital LDH 2021-12-14 Bebeto Ward Anglican 10:39:00 Hospital ESTIMATED GFR 2021-12-14 Jeremy Sandoval Anglican 10:39:00 [facility] VENIPUNC NEED PHYS SKILL,DX OR RX 2021-12-13 Scott, Blesi lda Anglican 21:45:17 Hospital CBC WITH PLATELET AND DIFFERENTIAL 2021-12-13 Leah Sandoval Anglican 07:40:00 [facility] PROTHROMBIN TIME WITH INR 2021-12-13 Jeremy Sandoval ist 07:40:00 [facility] BASIC METABOLIC PANEL 2021-12-13 Jeremy Sandoval Anglican 07:40:00 [facility] HEPATIC FUNCTION PANEL 2021-12-13 Jeremy Sandoval Anglican 07:40:00 [facility] PHOSPHORUS LEVEL 2021-12-13 Jeremy Sandoval Anglican 07:40:00 [facility] MAGNESIUM LEVEL 2021-12-13 Jeremy Sandoval Anglican 07:40:00 [facility] HEMOGLOBIN A1C 2021-12-13 Jeremy Sandoval Anglican 07:40:00 [facility] C-REACTIVE PROTEIN 2021-12-13 Bebeto Ward Anglican 07:40:00 Hospital SEDIMENTATION RATE 2021-12-13 Bebeto Ward Anglican 07:40:00 Hospital LDH 2021-12-13 Ward, Bebeto Anglican 07:40:00 Hospital LIPASE LEVEL 2021-12-13 Bebeto Ward 07:40:00 Hospital GGT 2021-12-13 Bebeto Ward 07:40:00 Hospital ESTIMATED GFR 2021-12-13 Jeremy Sandoval 07:40:00 [facility] SMEAR REVIEW 2021-12-13 Jeremy Sandoval 07:40:00 [facility] BLOOD CULTURE, AEROBIC & ANAEROBIC 2021-12-12 Leah Sandoval 12:00:00 [facility] BLOOD CULTURE, AEROBIC & ANAEROBIC 2021-12-12 Leah Sandoval 11:42:00 [place] [id number] ANTI-SPIKE IGG ANTIBODY 2021-12-12 Leah Sandoval TITER 11:40:00 [facility] TROPONIN T 2021-12-12 RehStevo underwood 11:40:00 [facility] CBC WITH PLATELET AND DIFFERENTIAL 2021-12-12 Leah Sandoval 11:40:00 [facility] 2021-12-12 Jeremy Sandoval SURVEILLANCE 11:40:00 [facility] SMEAR REVIEW 2021-12-12 Jeremy Sandoval 11:40:00 [facility] TROPONIN T 2021-12-12 Stevo Hoskins 09:10:00 [facility] LACTIC ACID LEVEL, SEPSIS - NOW 2021-12-12 RehrerStevo AND REPEAT 2X EVERY 3 HOURS 09:10:00 [facility] ital CT ABDOMEN PELVIS W CONTRAST 2021-12-12 Stevo Hoskins hodist 06:58:00 [facility] ECG ED PRELIMINARY INTERPRETATION 2021-12-12 Stevo Hoskins 05:33:45 [facility] URINE CULTURE 2021-12-12 Stevo Hoskins 04:28:00 [facility] URINALYSIS SCREEN AND MICROSCOPY, 2021-12-12 Stevo Hoskins WITH REFLEX TO CULTURE 03:45:00 [facility] COVID-19 QUALITATIVE RT-PCR 2021-12-12 Stevo Hoskins 03:30:00 [facility] PROTHROMBIN TIME WITH INR 2021-12-12 Rehrer, Stevo Method ist 03:30:00 [facility] PARTIAL THROMBOPLASTIN TIME (PTT) 2021-12-12 Rehrer, Stevo Rileyist 03:30:00 [facility] LIPASE LEVEL 2021-12-12 Rehrer, Stevo Rileyist 03:30:00 [facility] TROPONIN T 2021-12-12 Rehrer, Stevo Rileyist 03:30:00 [facility] B NATRIURETIC PEPTIDE 2021-12-12 Rehrer, Stevo Rileyist 03:30:00 [facility] TYPE AND SCREEN 2021-12-12 Rehrer, Stevo Anglican 03:30:00 [facility] LACTIC ACID LEVEL, SEPSIS - NOW 2021-12-12 Tamie Silveira AND REPEAT 2X EVERY 3 HOURS 03:30:00 Hosp ital ECG 12-LEAD 2021-12-12 Rehrer, Stevo Rileyist 03:08:12 [facility] CBC WITH PLATELET AND DIFFERENTIAL 2021-12-11 [...] PLATELET AND DIFFERENTIAL 2021-12-03 Leah Sandoval 11:14:00 [facility] PROTHROMBIN TIME WITH INR 2021-12-03 Jeremy Sandoval Method ist 11:14:00 [facility] BASIC METABOLIC PANEL 2021-12-03 Jeremy Sandoval 11:14:00 [facility] HEPATIC FUNCTION PANEL 2021-12-03 Jeremy Sandoval 11:14:00 [facility] PHOSPHORUS LEVEL 2021-12-03 Jeremy Sandoval 11:14:00 [facility] MAGNESIUM LEVEL 2021-12-03 Jose Sandovalh Anglican 11:14:00 [facility] ESTIMATED GFR 2021-12-03 Dinakar, Jeremy Anglican 11:14:00 [facility] SMEAR REVIEW 2021-12-03 Dinakar, Jeremy Anglican 11:14:00 [facility] US DUPLEX VENOUS UPPER EXTREMITY 2021-12-02 Nakia Cruz Anglican LEFT 18:10:00 Hospital CBC WITH PLATELET AND DIFFERENTIAL 2021-12-02 Dinakar, Leah stuart Anglican 09:59:00 [facility] PROTHROMBIN TIME WITH INR 2021-12-02 Dinakar, Jeremy Method ist 09:59:00 [facility] BASIC METABOLIC PANEL 2021-12-02 Dinakar, Jeremy Anglican 09:59:00 [facility] HEPATIC FUNCTION PANEL 2021-12-02 Dinakar, Jeremy Anglican 09:59:00 [facility] PHOSPHORUS LEVEL 2021-12-02 Dinakar, Jeremy Anglican 09:59:00 [facility] MAGNESIUM LEVEL 2021-12-02 Dinakar, Jeremy Anglican 09:59:00 [facility] ESTIMATED GFR 2021-12-02 Dinakar, Jeremy Anglican 09:59:00 [facility] CBC WITH PLATELET AND DIFFERENTIAL 2021-12-01 Dinakar, Leah stuart Anglican 10:22:00 [facility] PROTHROMBIN TIME WITH INR 2021-12-01 Dinakar, Jeremy Method ist 10:22:00 [facility] BASIC METABOLIC PANEL 2021-12-01 Dinakar, Jeremy Anglican 10:22:00 [facility] HEPATIC FUNCTION PANEL 2021-12-01 Dinakar, Jeremy Anglican 10:22:00 [facility] PHOSPHORUS LEVEL 2021-12-01 Dinakar, Jeremy Anglican 10:22:00 [facility] MAGNESIUM LEVEL 2021-12-01 Dinakar, Jeremy Anglican 10:22:00 [facility] ESTIMATED GFR 2021-12-01 Dinakar, Jeremy Anglican 10:22:00 [facility] SMEAR REVIEW 2021-12-01 Dinakar, Jeremy Anglican 10:22:00 [facility] ESOPHAGOGASTRODUODENOSCOPY (EGD) 2021-11-30 Elias Guzman 19:49:00 Hospital CBC WITH PLATELET AND DIFFERENTIAL 2021-11-30 Dinakar, Sati sade Anglican 10:53:00 [facility] PROTHROMBIN TIME WITH INR 2021-11-30 Dinakar, Jeremy Method ist 10:53:00 [facility] BASIC METABOLIC PANEL 2021-11-30 Dinakar, Jeremy Anglican 10:53:00 [facility] HEPATIC FUNCTION PANEL 2021-11-30 Dinakar, Jeremy Anglican 10:53:00 [facility] PHOSPHORUS LEVEL 2021-11-30 Dinakar, Jeremy Anglican 10:53:00 [facility] MAGNESIUM LEVEL 2021-11-30 Dinakar, Jeremy Anglican 10:53:00 [facility] ESTIMATED GFR 2021-11-30 Dinakar, Jeremy Anglican 10:53:00 [facility] SMEAR REVIEW 2021-11-30 Dinakar, Jeremy Anglican 10:53:00 [facility] CBC WITH PLATELET AND DIFFERENTIAL 2021-11-29 Dinakar, Leah stuart Anglican 10:50:00 [facility] PROTHROMBIN TIME WITH INR 2021-11-29 Dinakar, Jeremy Method ist 10:50:00 [facility] BASIC METABOLIC PANEL 2021-11-29 Dinakar, Jeremy Anglican 10:50:00 [facility] HEPATIC FUNCTION PANEL 2021-11-29 Dinakar, Jeremy Anglican 10:50:00 [facility] PHOSPHORUS LEVEL 2021-11-29 Dinakar, Jeremy Anglican 10:50:00 [facility] MAGNESIUM LEVEL 2021-11-29 Dinakar, Jeremy Anglican 10:50:00 [facility] ESTIMATED GFR 2021-11-29 Dinakar, Jeremy Anglican 10:50:00 [facility] SMEAR REVIEW 2021-11-29 Dinakar, Jeremy Anglican 10:50:00 [facility] CBC WITH PLATELET AND DIFFERENTIAL 2021-11-28 Dinakar, Sati sade Anglican 09:28:00 [facility] CBC WITH PLATELET AND DIFFERENTIAL 2021-11-28 Dinakar, Sati sh Anglican 09:28:00 [facility] PROTHROMBIN TIME WITH INR 2021-11-28 Dinakar, Jeremy Method ist 09:28:00 [facility] BASIC METABOLIC PANEL 2021-11-28 Dinakar, Jeremy Anglican 09:28:00 [facility] HEPATIC FUNCTION PANEL 2021-11-28 Dinakar, Jeremy Anglican 09:28:00 [facility] PHOSPHORUS LEVEL 2021-11-28 Dinakar, Jeremy Anglican 09:28:00 [facility] MAGNESIUM LEVEL 2021-11-28 Dinakar, Jeremy Anglican 09:28:00 [facility] ESTIMATED GFR 2021-11-28 Dinakar, Jeremy Anglican 09:28:00 [facility] OCCULT BLOOD, STOOL 2021-11-27 Jefferson Skelton 23:26:00 Hospital XR ABDOMEN 1 VW PORTABLE 2021-11-27 Myra Garcia 20:25:00 [facility] CBC WITH PLATELET AND DIFFERENTIAL 2021-11-27 Ara, Leah Kyle 09:07:00 [facility] PROTHROMBIN TIME WITH INR 2021-11-27 Jeremy Sandoval ist 09:07:00 [facility] BASIC METABOLIC PANEL 2021-11-27 DinakarJeremy Anglican 09:07:00 [facility] HEPATIC FUNCTION PANEL 2021-11-27 Dinakar, Jeremy Anglican 09:07:00 [facility] PHOSPHORUS LEVEL 2021-11-27 Dinakar, Jeremy Anglican 09:07:00 [facility] MAGNESIUM LEVEL 2021-11-27 Dinar, Jeremy Anglican 09:07:00 [facility] HEMOGLOBIN A1C 2021-11-27 Jeremy Sandoval Anglican 09:07:00 [facility] ESTIMATED GFR 2021-11-27 Dinar, Jeremy Anglican 09:07:00 [facility] SMEAR REVIEW 2021-11-27 Jeremy Sandoval Anglican 09:07:00 [facility] BLOOD CULTURE, AEROBIC & ANAEROBIC 2021-11-27 Ara, eLah Kyle 04:03:00 [facility] ANTI-SPIKE IGG ANTIBODY 2021-11-27 Leah Sandoval TITER 04:03:00 [facility] SER[facility] PATIENT 2021-11-27 Jeremy Sandoval SURVEILLANCE 04:03:00 [facility] CTA ABD/PEL FOR BLEEDING 2021-11-27 Jefferson Skeltono dist 01:38:34 Hospital HEMOGLOBIN & HEMATOCRIT 2021-11-27 Jefferson Skelton Method ist 01:34:00 Hospital SMEAR REVIEW 2021-11-27 Jefferson Skelton Anglican 01:34:00 Hospital RESPIRATORY PATHOGEN PANEL WITH 2021-11-27 Jefferson Skelton Ala Anglican COVID-19 RT-PCR 00:58:00 Hospital TYPE AND SCREEN 2021-11-27 Jefferson Skelton Anglican 00:30:00 Hospital PROTHROMBIN TIME WITH INR 2021-11-27 Jefferson Skelton Meth odist 00:30:00 Hospital AMMONIA LEVEL 2021-11-27 Jefferson Skelton Anglican 00:30:00 Hospital ECG 12-LEAD 2021-11-27 Jefferson Skelton Anglican 00:29:32 [facility] ECG ED PRELIMINARY INTERPRETATION 2021-11-27 Jefferson Skelton Anglican 00:04:12 [facility] CBC WITH PLATELET AND DIFFERENTIAL 2021-11-26 Jefferson Skelton Anglican 21:32:00 [facility] COMPREHENSIVE METABOLIC PANEL 2021-11-26 Jefferson Skelton Anglican 21:32:00 Hospital LIPASE LEVEL 2021-11-26 Jefferson Skelton Anglican 21:32:00 Hospital HCG QUALITATIVE, SERUM SCREEN 2021-11-26 Jefferson Skelton Anglican 21:32:00 [facility] ESTIMATED GFR 2021-11-26 Pasquale Cabrales Anglican 21:32:00 [facility] SMEAR REVIEW 2021-11-26 Pasquale Cabrales Anglican 21:32:00 [facility] CBC WITH PLATELET AND DIFFERENTIAL 2021-10-26 Nakia Cruz Anglican 11:26:00 Hospital PROTHROMBIN TIME WITH INR 2021-10-26 Nakia Cruz Method ist 11:26:00 Hospital BASIC METABOLIC PANEL 2021-10-26 Anand Arora Anglican 11:26:00 [facility] ESTIMATED GFR 2021-10-26 Anand Arora Anglican 11:26:00 [facility] SMEAR REVIEW 2021-10-26 Nakia Cruzist 11:26:00 Hospital CBC WITH PLATELET AND DIFFERENTIAL 2021-10-25 Nakia Cruz Anglican 09:30:00 Hospital PROTHROMBIN TIME WITH INR 2021-10-25 Nakia Cruz Method ist 09:30:00 Hospital COMPREHENSIVE METABOLIC PANEL 2021-10-25 Nakia Cruz thodist 09:30:00 Hospital ESTIMATED GFR 2021-10-25 Nakia Cruz Anglican 09:30:00 Hospital MAGNESIUM LEVEL 2021-10-25 Nakia Cruz Anglican 09:30:00 Hospital PHOSPHORUS LEVEL 2021-10-25 Nakia Cruz Anglican 09:30:00 Hospital BILIRUBIN DIRECT 2021-10-25 Nakia Cruz Anglican 09:30:00 Hospital SMEAR REVIEW 2021-10-25 Nakia Cruz Anglican 09:30:00 Hospital CBC WITH PLATELET AND DIFFERENTIAL 2021-10-24 Nakia Cruzist 09:17:00 Hospital PROTHROMBIN TIME WITH INR 2021-10-24 Nakia Cruz Method ist 09:17:00 Hospital COMPREHENSIVE METABOLIC PANEL 2021-10-24 Nakia Cruz thodist 09:17:00 Hospital PHOSPHORUS LEVEL 2021-10-24 Nakia Cruz Anglican 09:17:00 Hospital MAGNESIUM LEVEL 2021-10-24 Nakia Cruz Anglican 09:17:00 Hospital ESTIMATED GFR 2021-10-24 Nakia Cruzist 09:17:00 Hospital SMEAR REVIEW 2021-10-24 Nakia Cruz Anglican 09:17:00 Hospital ESOPHAGOGASTRODUODENOSCOPY (EGD) 2021-10-23 Elias Guzman Anglican 17:25:00 Hospital CBC WITH PLATELET AND DIFFERENTIAL 2021-10-23 Nakia Cruz 11:38:00 Hospital PROTHROMBIN TIME WITH INR 2021-10-23 Nakia Cruz ist 11:38:00 Hospital COMPREHENSIVE METABOLIC PANEL 2021-10-23 Nakia Cruz thodist 11:38:00 Hospital PHOSPHORUS LEVEL 2021-10-23 Nakia Cruz Anglican 11:38:00 Hospital MAGNESIUM LEVEL 2021-10-23 Nakia Cruz Anglican 11:38:00 Hospital ESTIMATED GFR 2021-10-23 Nakia Cruz Anglican 11:38:00 Hospital SMEAR REVIEW 2021-10-23 Nakia Cruz 11:38:00 Hospital TTE COMPLETE, W CONTRAST, W 2021-10-22 Myra Garcia ethodi DOPPLER ([id number]) 14:21:00 [facility] CBC WITH PLATELET AND DIFFERENTIAL 2021-10-22 Nakia Cruzist 10:31:00 Hospital PROTHROMBIN TIME WITH INR 2021-10-22 Nakia Cruz ist 10:31:00 [facility] COMPREHENSIVE METABOLIC PANEL 2021-10-22 Nakia Cruz thodist 10:31:00 Hospital PHOSPHORUS LEVEL 2021-10-22 Nakia Cruzist 10:31:00 Hospital MAGNESIUM LEVEL 2021-10-22 Nakia Cruzist 10:31:00 [facility] THYROID STIMULATING HORMONE 2021-10-22 Nakia Cruz odist 10:31:00 [facility] T4 2021-10-22 Nakia Cruzist 10:31:00 [facility] VITAMIN D 25 HYDROXY LEVEL 2021-10-22 Nakia Cruzo dist 10:31:00 Hospital ALPHA FETOPROTEIN 2021-10-22 Myra Garcia 10:31:00 [facility] ESTIMATED GFR 2021-10-22 Nakia Cruzist 10:31:00 [facility] SMEAR REVIEW 2021-10-22 Nakia Cruzist 10:31:00 [facility] COVID-19 QUALITATIVE RT-PCR 2021-10-22 Nakia Cruz odist 00:29:00 [facility] URINE CULTURE 2021-10-21 Nakia Cruzist 22:46:00 [facility] URINALYSIS SCREEN AND MICROSCOPY, 2021-10-21 Nakia Cruz WITH REFLEX TO CULTURE 22:46:00 [facility] XR ABDOMEN 1 VW PORTABLE 2021-10-21 Myra Garcia odist 22:35:00 [facility] CT ABDOMEN PELVIS WO CONTRAST 2021-10-21 Nakia Cruz thodist 20:20:30 [facility] ZZCOVID-19 ANTI-SPIKE IGG ANTIBODY 2021-10-21 Nakia Cruz TITER 16:31:00 [facility] CBC WITH PLATELET AND DIFFERENTIAL 2021-10-21 Nakia Cruzist 16:31:00 [facility] COMPREHENSIVE METABOLIC PANEL 2021-10-21 Nakia Cruz thodist 16:31:00 Hospital PROTHROMBIN TIME WITH INR 2021-10-21 Nakia Cruz ist 16:31:00 Hospital MAGNESIUM LEVEL 2021-10-21 Nakia Cruzist 16:31:00 Hospital PHOSPHORUS LEVEL 2021-10-21 Nakia Cruzist 16:31:00 Hospital LIPASE LEVEL 2021-10-21 Nakia Cruzist 16:31:00 Hospital ZZCOVID-19 SEROLOGY PATIENT 2021-10-21 Nakia Cruz Meth odist SURVEILLANCE 16:31:00 Hospital ESTIMATED GFR 2021-10-21 Nakia Cruz 16:31:00 Hospital XR KNEE 3 VW RIGHT 2021-09-29 [facility] 04:06:00 [facility] NOTICE OF PRIVACY PRACTICES 2021-09-29 [facility] 02:46:43 [place] [facility] CONSENT/REFUSAL FOR DIAGNOSIS AND 2021-09-29 Doctor Buck olmedo [facility] 02:46:16 [place] [facility] XR KNEE 3 VW LEFT 2021[facility]04-[facility] 20:10[facility]39 F [facility] CONSENT/REFUSAL FOR DIAGNOSIS AND 2021-04-02 Doctor Buck olmedo, [facility] 17:59:31 [place] [facility] ASSIGNMENT OF BENEFITS 2021-03-10 Doctor Kathleen [facility] sit of 20:29:46 [place] [facility] HC COMPLETE BLD COUNT W/AUTO DIFF 2021-02-20 Anabella Suresh 10:53:00 [facility] BASIC METABOLIC PANEL 2021-02-20 Anabella Suresh 10:53:00 [facility] HEPATIC FUNCTION PANEL 2021-02-20 Anabella Suresh 10:53:00 [facility] MAGNESIUM LEVEL 2021-02-20 Anabella Suresh 10:53:00 [facility] PHOSPHORUS LEVEL 2021-02-20 Anabella Suresh 10:53:00 [facility] PROTHROMBIN TIME WITH INR 2021-02-20 Rosemary Suresh ist 10:53:00 [facility] ESTIMATED GFR 2021-02-20 Anabella Suresh 10:53:00 [facility] SMEAR REVIEW 2021-02-20 Anabella Suresh 10:53:00 [facility] MRI CHOLANGIOGRAM WO CONTRAST 2021-02-20 Jeremy Sandoval Nd thodist 00:15:00 [facility] VENIPUNC NEED PHYS SKILL,DX OR RX 2021-02-19 Latanya Ring lda Anglican 16:10:21 Hospital HC COMPLETE BLD COUNT W/AUTO DIFF 2021-02-19 Anabella Suresh 11:00:00 [facility] BASIC METABOLIC PANEL 2021-02-19 Anabella Suresh 11:00:00 [facility] HEPATIC FUNCTION PANEL 2021-02-19 Anabella Suresh 11:00:00 [facility] MAGNESIUM LEVEL 2021-02-19 Anabella Suresh 11:00:00 [facility] PHOSPHORUS LEVEL 2021-02-19 Anabella Suresh 11:00:00 [facility] PROTHROMBIN TIME WITH INR 2021-02-19 Rosemary Suresht 11:00:00 [facility] ESTIMATED GFR 2021-02-19 Anabella Suresh 11:00:00 [facility] SMEAR REVIEW 2021-02-19 Anabella Suresh 11:00:00 [facility] CT ABDOMEN PELVIS WO CONTRAST 2021-02-19 Me Demetrice thodist 03:25:00 [facility] URINE CULTURE 2021-02-19 Anabella Suresh 02:27:00 [facility] URINALYSIS SCREEN AND MICROSCOPY, 2021-02-19 Anabella Suresh WITH REFLEX TO CULTURE 02:27:00 [facility] BLOOD CULTURE, AEROBIC & ANAEROBIC 2021-02-18 Anabella Suresh 23:25:00 [facility] TYPE AND SCREEN 2021-02-18 Dre Mayer 23:25:00 Hospital COVID-19 ANTI-SPIKE IGG ANTIBODY 2021-02-18 Anabella Suresh TITER 22:57:00 [facility] COVID-19 SEROLOGY PATIENT 2021-02-18 Rosemary Suresh ist SURVEILLANCE 22:57:00 [facility] HC COMPLETE BLD COUNT W/AUTO DIFF 2021-02-18 Anabella Suresh 22:57:00 [facility] PROTHROMBIN TIME WITH INR 2021-02-18 Rosemary Suresh ist 22:57:00 [facility] COMPREHENSIVE METABOLIC PANEL 2021-02-18 Me Demetrice thodist 22:57:00 [facility] LACTIC ACID LEVEL 2021-02-18 Anabella Suresh 22:57:00 [facility] MAGNESIUM LEVEL 2021-02-18 Anabella Suresh 22:57:00 [facility] PHOSPHORUS LEVEL 2021-02-18 Anabella Suresh 22:57:00 [facility] LIPASE LEVEL 2021-02-18 Anabella Suresh 22:57:00 [facility] ESTIMATED GFR 2021-02-18 Anabella Suresh 22:57:00 [facility] SMEAR REVIEW 2021-02-18 Anabella Suresh 22:57:00 [facility] PHOSPHORUS 2020-10-03 Brenda Teixeira of 08:52:00 [facility] MAGNESIUM 2020-10-03 Brenda Teixeira [facility] of 08:52:00 [facility] COMP. METABOLIC PANEL ([id number]) 2020-10-03 Brenda Teixeira Un iversity of 08:52:00 [facility] CBC WITH DIFF 2020-10-03 Brenda Teixeira of 08:52:00 [facility] COMP. METABOLIC PANEL ([id number]) 2020-10-02 Brenda Teixeira iversity of 08:39:00 [facility] CBC WITH DIFF 2020-10-02 Brenda Teixeira [facility] of 08:39:00 [facility] US DUPLEX VENOUS ARM LEFT - BY 2020-10-01 Brenda Teixeira U niversity of VASCULAR LAB 16:22:58 [facility] COMP. METABOLIC PANEL ([id number]) 2020-10-01 Tomasa Rucker Un iversity of 07:45:00 [facility] CBC WITH DIFF 2020-10-01 Tomasa Rucker University of 07:45:00 [facility] TROPONIN I 2020-09-30 Marco Levy [facility] of 10:56:00 [facility] COMP. METABOLIC PANEL ([id number]) 2020-09-30 Shaina Pinto Un iversity of 10:56:00 [facility] CBC WITH DIFF 2020-09-30 [facility] 10:56[facility]00 [facility] N-TERMINAL PRO-BNP 2020-09-30 Alisha [facility] of 08:05:00 [facility] OCCULT (GUAIAC) BLOOD 2020-09-30 Alisha [facility] of 02:10:00 [facility] FECAL LEUKOCYTES 2020-09-30 Alisha [facility] of 02:10:00 [facility] CLOSTRIDIUM DIFFICILE TOXIN 2020-09-30 Alisha, [facility] ersity of 02:10:00 [facility] FECAL PATHOGENS BY PCR 2020-09-30 Alisha [facility] y of 02:10:00 [facility] POCT GLUCOSE (AUTOMATED) 2020-09-30 Rene Evans [facility] sity of 00:35:00 [facility] BASIC METABOLIC PANEL (NA, K, CL, 2020-09-29 [facility] CO2, GLUCOSE, BUN, CREATININE, CA) 21:11:00 [facility] HEMOGLOBIN 2020-09-29 RoscoeTomasa Marshall of 21:11:00 [facility] TRANSTHORACIC ECHO (TTE) COMPLETE 2020-09-29 Marco Levy [facility] of 16:03:00 Sukhdev.HJason [facility] HB ECG ROUTINE & RHYTHM STRIP 2020-09-29 Shaina Pinto iversity of 11:18:58 [facility] OSMOLALITY URINE 2020-09-29 [facility] 08:56:00 [facility] URINE CULTURE 2020-09-29 Alisha [facility] of 08:56:00 [facility] SODIUM, URINE RANDOM 2020-09-29 Alisha [facility] of 08:56:00 [facility] PROTEIN CREAT RATIO URINE RANDOM 2020-09-29 Alisha [facility] of 08:56:00 [facility] BLOOD CULTURE SCREEN 2020-09-29 [facility] 08:32:00 [facility] LACTIC ACID WHOLE BLOOD 2020-09-29 Alisha sharad [facility] ty of 08:32:00 [facility] VITAMIN B12, LEVEL 2020-09-29 [facility] 08:31:00 [facility] C-REACTIVE PROTEIN 2020-09-29 Alisha [facility] of 08:31:00 [facility] IRON PANEL 2020-09-29 Alisha [facility] of 08:31:00 [facility] SEDIMENTATION RATE 2020-09-29 Alisha [facility] of 08:31:00 [facility] DIFF CONSULT INTERPRETATION 2020-09-29 Alisha [facility] ersity of 08:31:00 [facility] CBC WITH DIFF 2020-09-29 Alisha [facility] of 08:31:00 [facility] PROTHROMBIN TIME / INR 2020-09-29 Alisha [facility] y of 08:31:00 [facility] N-TERMINAL PRO-BNP 2020-09-29 Alisha [facility] of 08:31:00 [facility] VITAMIN D, 25-OH 2020-09-29 [facility] 08:31:00 [facility] PROCALCITONIN 2020-09-29 Alisha [facility] of 08:31:00 [facility] COVID-19 (ID NOW RAPID TESTING) 2020-09-29 Rene Evans [facility] of 05:10:00 [facility] LAB ONLY COVID INTERPRETATION 2020-09-29 Rene Evans U niversity of 05:10:00 [facility] CT ABDOMEN PELVIS W CONTRAST 2020-09-29 Rene Evans Un iversity of 04:56:31 [facility] URINALYSIS 2020-09-29 Rene Evans [facility] of 04:19:00 [facility] PHOSPHORUS 2020-09-29 [facility] 03:54:00 [facility] CREATINE KINASE 2020-09-29 Shaina Pinto [facility] of 03:54:00 [facility] URIC ACID 2020-09-29 Shaina Pinto [facility] of 03:54:00 [facility] LIPASE 2020-09-29 Rene Evans of 03:54:00 [facility] MAGNESIUM 2020-09-29 Shaina Pinto of 03:54:00 [facility] FERRITIN SERUM 2020-09-29 Shaina Pinto [facility] of 03:54:00 [facility] TROPONIN I 2020-09-29 [facility] 03:54:00 [facility] THYROID STIMULATING HORMONE 2020-09-[address] [facility] ersity of 03:54:00 [facility] COMP. METABOLIC PANEL ([id number]) 2020-09-29 Rene Evans U niversity of 03:54:00 [facility] LIPID PANEL ([id number])(TOTAL 2020-09-29 Shaina Pinto [facility] sity of CHOLESTEROL, TRIGLYCERIDES, HDL) 03:54:00 [facility] CBC WITH DIFF 2020-09-29 Rene Evans [facility] of 03:54:00 [facility] GLYCOSYLATED HEMOGLOBIN (A1C) 2020-09-29 Shaina Pinto Un iversity of 03:54:00 [facility] N-TERMINAL PRO-BNP 2020-09-29 Shaina Pinto [facility] of 03:54:00 [facility] CONSENT/REFUSAL FOR DIAGNOSIS AND 2020-09-29 Doctor Buck olmedo, [facility] 03:18:51 [place] [facility] NOTICE OF PRIVACY PRACTICES 2020-09-29 Doctor Unassigned, U niversity of 03:18:30 [place] [facility] CT ABDOMEN PELVIS W CONTRAST 2019-08-11 Corby Ca Uni versity of 14:50:46 [facility] COMP. METABOLIC PANEL ([id number]) 2019-08-11 Shaina Pinto Un iversity of 08:00:00 [facility] CBC WITH DIFFERENTIAL 2019-08-11 Shaina Pinto of 08:00:00 [facility] CBC WITH DIFFERENTIAL 2019-08-11 Shaina Pinto of 08:00:00 [facility] XR SMALL BOWEL SERIES 2019-08-10 Valente Piña of 21:18:47 [facility] XR ABDOMEN 1 VW 2019-08-10 Shaina Pinto of 11:52:39 [facility] PHOSPHORUS 2019-08-10 Shaina Pinto of 11:11:00 [facility] CREATINE KINASE 2019-08-10 Shaina Pinto of 11:11:00 [facility] AMYLASE 2019-08-10 Alisha, Shaina [facility] of 11:11:00 [facility] LIPASE 2019-08-10 Shaina Pinto of 11:11:00 [facility] MAGNESIUM 2019-08-10 Shaina Pinto [facility] of 11:11:00 [facility] TEST, SERUM 2019-08-10 Shaina Pinto of 11:11:00 [facility] THYROID STIMULATING HORMONE 2019-08-10 Shaina Pinto Univ ersity of 11:11:00 [facility] COMP. METABOLIC PANEL ([id number]) 2019-08-10 Shaina Pinto Un iversity of 11:11:00 [facility] LIPID PANEL ([id number])(TOTAL 2019-08-10 Shaina Pinto [facility] sity of CHOLESTEROL, TRIGLYCERIDES, HDL) 11:11:00 [facility] SEDIMENTATION RATE 2019-08-10 Shaina Pinto of 11:11:00 [facility] CBC WITH DIFFERENTIAL 2019-08-10 Shaina Pinto of 11:11:00 [facility] GLYCOSYLATED HEMOGLOBIN (A1C) 2019-08-10 Shaina Pinto iversity of 11:11:00 [facility] PROTHROMBIN TIME / INR 2019-08-10 [facility] 11:11:00 [facility] CORONAVIRUS COVID-19 TESTING 2019-08-10 Shaina Pinto Uni versity of 09:04:00 [facility] Plan of Care Planned Activity Planned Date Details Comments Source Future Scheduled 2022-10-06 Screening for [facility] Test 12:39:24 malignant neoplasm of colon (procedure) [code = 665108747] Future Scheduled 2022-10-06 Screening for [facility] Test 12:39:24 malignant neoplasm of colon (procedure) [code = 322830095] Future Scheduled 2022-10-06 Screening for [facility] Test 12:39:24 malignant neoplasm of cervix (procedure) [code = 452964130] Future Scheduled 2022-10-06 BREAST CANCER [facility] Test 12:39:24 SCREENING [code = BREAST CANCER SCREENING] Future Scheduled 2022-10-06 Screening for [facility] Test 12:39:24 malignant neoplasm of colon (procedure) [code = 525371931] Future Scheduled 2022-10-06 SHINGLES VACCINES (1 [facility] Test 12:39:24 of 2) [code = SHINGLES VACCINES (1 of 2)] Future Scheduled 2022-10-06 COVID-19 VACCINE (3 - [facility] Test 12:39:24 Moderna series) [code = COVID-19 VACCINE (3 - Moderna series)] Future Scheduled 2022-10-06 HEPATITIS B VACCINES [facility] Test 12:39:24 (1 of 3 - Risk 3-dose series) [code = HEPATITIS B VACCINES (1 of 3 - Risk 3-dose series)] Future Scheduled 2022-10-06 Pneumococcal Vaccine: [facility] Test 12:39:24 Pediatrics (0 to 5 Years) and At-Risk Patients (6 to 64 Years) (2 - PCV) [code = Pneumococcal Vaccine: Pediatrics (0 to 5 Years) and At-Risk Patients (6 to 64 Years) (2 - PCV)] Future Scheduled 2022-10-06 INFLUENZA VACCINE Method [facility] Test 12:39:24 [code = INFLUENZA VACCINE] Future Scheduled 2022-10-06 Screening for [facility] Test 12:39:24 malignant neoplasm of colon (procedure) [code = 547509278] Future Scheduled 2022-10-06 Screening for [facility] Test 12:39:24 malignant neoplasm of colon (procedure) [code = 557046600] Future Scheduled 2022-07-18 Screening for [facility] Test 04:05:29 malignant neoplasm of cervix (procedure) [code = 582522606] Future Scheduled 2022-07-18 BREAST CANCER [facility] Test 04:05:29 SCREENING [code = BREAST CANCER SCREENING] Future Scheduled 2022-07-18 COLONOSCOPY SCREENING [facility] Test 04:05:29 [code = COLONOSCOPY SCREENING] Future Scheduled 2022-07-18 SHINGLES VACCINES (1 [facility] Test 04:05:29 of 2) [code = SHINGLES VACCINES (1 of 2)] Future Scheduled 2022-07-18 COVID-19 VACCINE (3 - [facility] Test 04:05:29 Booster for Moderna series) [code = COVID-19 VACCINE (3 - Booster for Moderna series)] Future Scheduled 2022-07-18 HEPATITIS B VACCINES [facility] Test 04:05:29 (1 of 3 - Risk 3-dose series) [code = HEPATITIS B VACCINES (1 of 3 - Risk 3-dose series)] Future Scheduled 2022-07-18 Pneumococcal Vaccine: [facility] Test 04:05:29 Pediatrics (0 to 5 Years) and At-Risk Patients (6 to 64 Years) (2 - PCV) [code = Pneumococcal Vaccine: Pediatrics (0 to 5 Years) and At-Risk Patients (6 to 64 Years) (2 - PCV)] Future Scheduled 2022-07-18 INFLUENZA VACCINE Method [facility] Test 04:05:29 [code = INFLUENZA VACCINE] Future Scheduled 2022-04-30 Hepatitis C screening [facility] Test 10:39:21 (procedure) [code = 960590714] Future Scheduled 2022-04-30 Screening for [facility] Test 10:39:21 malignant neoplasm of cervix (procedure) [code = 059866759] Future Scheduled 2022-04-30 BREAST CANCER [facility] Test 10:39:21 SCREENING [code = BREAST CANCER SCREENING] Future Scheduled 2022-04-30 COLONOSCOPY SCREENING [facility] Test 10:39:21 [code = COLONOSCOPY SCREENING] Future Scheduled 2022-04-30 SHINGLES VACCINES (1 [facility] Test 10:39:21 of 2) [code = SHINGLES VACCINES (1 of 2)] Future Scheduled 2022-04-30 COVID-19 VACCINE (3 - [facility] Test 10:39:21 Booster for Moderna series) [code = COVID-19 VACCINE (3 - Booster for Moderna series)] Future Scheduled 2022-04-30 HEPATITIS B VACCINES [facility] Test 10:39:21 (1 of 3 - Risk 3-dose series) [code = HEPATITIS B VACCINES (1 of 3 - Risk 3-dose series)] Future Scheduled 2022-04-30 Pneumococcal Vaccine: [facility] Test 10:39:21 Pediatrics (0 to 5 Years) and At-Risk Patients (6 to 64 Years) (2 - PCV) [code = Pneumococcal Vaccine: Pediatrics (0 to 5 Years) and At-Risk Patients (6 to 64 Years) (2 - PCV)] Future Scheduled 2022-04-03 Hepatitis C screening [facility] Test 09:24:01 (procedure) [code = 095622859] Future Scheduled 2022-04-03 Screening for [facility] Test 09:24:01 malignant neoplasm of cervix (procedure) [code = 735952911] Future Scheduled 2022-04-03 BREAST CANCER [facility] Test 09:24:01 SCREENING [code = BREAST CANCER SCREENING] Future Scheduled 2022-04-03 COLONOSCOPY SCREENING [facility] Test 09:24:01 [code = COLONOSCOPY SCREENING] Future Scheduled 2022-04-03 SHINGLES VACCINES (1 [facility] Test 09:24:01 of 2) [code = SHINGLES VACCINES (1 of 2)] Future Scheduled 2022-04-03 COVID-19 VACCINE (3 - [facility] Test 09:24:01 Booster for Moderna series) [code = COVID-19 VACCINE (3 - Booster for Moderna series)] Future Scheduled 2022-04-03 HEPATITIS B VACCINES [facility] Test 09:24:01 (1 of 3 - Risk 3-dose series) [code = HEPATITIS B VACCINES (1 of 3 - Risk 3-dose series)] Future Scheduled 2022-04-03 Pneumococcal Vaccine: [facility] Test 09:24:01 Pediatrics (0 to 5 Years) and At-Risk Patients (6 to 64 Years) (2 - PCV) [code = Pneumococcal Vaccine: Pediatrics (0 to 5 Years) and At-Risk Patients (6 to 64 Years) (2 - PCV)] Future Scheduled 2022-03-25 Hepatitis C screening [facility] Test 03:54:02 (procedure) [code = 161249969] Future Scheduled 2022-03-25 BREAST CANCER [facility] Test 03:54:02 SCREENING [code = BREAST CANCER SCREENING] Future Scheduled 2022-03-25 COLONOSCOPY SCREENING [facility] Test 03:54:02 [code = COLONOSCOPY SCREENING] Future Scheduled 2022-03-25 SHINGLES VACCINES (1 [facility] Test 03:54:02 of 2) [code = SHINGLES VACCINES (1 of 2)] Future Scheduled 2022-03-25 COVID-19 VACCINE (3 - [facility] Test 03:54:02 Booster for Moderna series) [code = COVID-19 VACCINE (3 - Booster for Moderna series)] Future Scheduled 2022-03-25 HEPATITIS B VACCINES [facility] Test 03:54:02 (1 of 3 - Risk 3-dose series) [code = HEPATITIS B VACCINES (1 of 3 - Risk 3-dose series)] Future Scheduled 2022-03-25 Pneumococcal Vaccine: [facility] Test 03:54:02 Pediatrics (0 to 5 Years) and At-Risk Patients (6 to 64 Years) (2 - PCV) [code = Pneumococcal Vaccine: Pediatrics (0 to 5 Years) and At-Risk Patients (6 to 64 Years) (2 - PCV)] Future Scheduled 2022-03-15 Hepatitis C screening [facility] Test 14:24:37 (procedure) [code = 959501985] Future Scheduled 2022-03-15 Screening for [facility] Test 14:24:37 malignant neoplasm of cervix (procedure) [code = 757532000] Future Scheduled 2022-03-15 BREAST CANCER [facility] Test 14:24:37 SCREENING [code = BREAST CANCER SCREENING] Future Scheduled 2022-03-15 COLONOSCOPY SCREENING [facility] Test 14:24:37 [code = COLONOSCOPY SCREENING] Future Scheduled 2022-03-15 SHINGLES VACCINES (1 [facility] Test 14:24:37 of 2) [code = SHINGLES VACCINES (1 of 2)] Future Scheduled 2022-03-15 COVID-19 VACCINE (3 - [facility] Test 14:24:37 Booster for Moderna series) [code = COVID-19 VACCINE (3 - Booster for Moderna series)] Future Scheduled 2022-03-15 HEPATITIS B VACCINES [facility] Test 14:24:37 (1 of 3 - Risk 3-dose series) [code = HEPATITIS B VACCINES (1 of 3 - Risk 3-dose series)] Future Scheduled 2022-03-15 Pneumococcal Vaccine: [facility] Test 14:24:37 Pediatrics (0 to 5 Years) and At-Risk Patients (6 to 64 Years) (2 - PCV) [code = Pneumococcal Vaccine: Pediatrics (0 to 5 Years) and At-Risk Patients (6 to 64 Years) (2 - PCV)] Future Scheduled 2022-01-15 Pneumococcal Vaccine: [facility] Test 07:35:31 Pediatrics (0 to 5 Years) and At-Risk Patients (6 to 64 Years) (1 - PCV) [code = Pneumococcal Vaccine: Pediatrics (0 to 5 Years) and At-Risk Patients (6 to 64 Years) (1 - PCV)] Future Scheduled 2022-01-15 Hepatitis C screening [facility] Test 07:35:31 (procedure) [code = 223326246] Future Scheduled 2022-01-15 Screening for [facility] Test 07:35:31 malignant neoplasm of cervix (procedure) [code = 821098989] Future Scheduled 2022-01-15 BREAST CANCER [facility] Test 07:35:31 SCREENING [code = BREAST CANCER SCREENING] Future Scheduled 2022-01-15 COLONOSCOPY SCREENING [facility] Test 07:35:31 [code = COLONOSCOPY SCREENING] Future Scheduled 2022-01-15 SHINGLES VACCINES (1 [facility] Test 07:35:31 of 2) [code = SHINGLES VACCINES (1 of 2)] Future Scheduled 2022-01-15 COVID-19 VACCINE (3 - [facility] Test 07:35:31 Booster for Moderna series) [code = COVID-19 VACCINE (3 - Booster for Moderna series)] Future Scheduled 2022-01-15 HEPATITIS B VACCINES [facility] Test 07:35:31 (1 of 3 - Risk 3-dose series) [code = HEPATITIS B VACCINES (1 of 3 - Risk 3-dose series)] Future Scheduled 2022-01-13 Pneumococcal Vaccine: [facility] Test 14:41:05 Pediatrics (0 to 5 Years) and At-Risk Patients (6 to 64 Years) (1 - PCV) [code = Pneumococcal Vaccine: Pediatrics (0 to 5 Years) and At-Risk Patients (6 to 64 Years) (1 - PCV)] Future Scheduled 2022-01-13 Hepatitis C screening [facility] Test 14:41:05 (procedure) [code = 950864558] Future Scheduled 2022-01-13 Screening for [facility] Test 14:41:05 malignant neoplasm of cervix (procedure) [code = 895984546] Future Scheduled 2022-01-13 BREAST CANCER [facility] Test 14:41:05 SCREENING [code = BREAST CANCER SCREENING] Future Scheduled 2022-01-13 COLONOSCOPY SCREENING [facility] Test 14:41:05 [code = COLONOSCOPY SCREENING] Future Scheduled 2022-01-13 SHINGLES VACCINES (1 [facility] Test 14:41:05 of 2) [code = SHINGLES VACCINES (1 of 2)] Future Scheduled 2022-01-13 COVID-19 VACCINE (3 - [facility] Test 14:41:05 Booster for Moderna series) [code = COVID-19 VACCINE (3 - Booster for Moderna series)] Future Scheduled 2022-01-13 HEPATITIS B VACCINES [facility] Test 14:41:05 (1 of 3 - Risk 3-dose series) [code = HEPATITIS B VACCINES (1 of 3 - Risk 3-dose series)] Future Scheduled 2021-12-24 Pneumococcal Vaccine: [facility] Test 07:34:42 Pediatrics (0 to 5 Years) and At-Risk Patients (6 to 64 Years) (1 - PCV) [code = Pneumococcal Vaccine: Pediatrics (0 to 5 Years) and At-Risk Patients (6 to 64 Years) (1 - PCV)] Future Scheduled 2021-12-24 Hepatitis C screening [facility] Test 07:34:42 (procedure) [code = 467217054] Future Scheduled 2021-12-24 Screening for [facility] Test 07:34:42 malignant neoplasm of cervix (procedure) [code = 086929137] Future Scheduled 2021-12-24 BREAST CANCER [facility] Test 07:34:42 SCREENING [code = BREAST CANCER SCREENING] Future Scheduled 2021-12-24 COLONOSCOPY SCREENING [facility] Test 07:34:42 [code = COLONOSCOPY SCREENING] Future Scheduled 2021-12-24 SHINGLES VACCINES (1 [facility] Test 07:34:42 of 2) [code = SHINGLES VACCINES (1 of 2)] Future Scheduled 2021-12-24 COVID-19 VACCINE (3 - [facility] Test 07:34:42 Booster for Moderna series) [code = COVID-19 VACCINE (3 - Booster for Moderna series)] Future Scheduled 2021-12-24 HEPATITIS B VACCINES [facility] Test 07:34:42 (1 of 3 - Risk 3-dose series) [code = HEPATITIS B VACCINES (1 of 3 - Risk 3-dose series)] Future Scheduled 2021-12-09 Pneumococcal Vaccine: [facility] Test 13:56:39 Pediatrics (0 to 5 Years) and At-Risk Patients (6 to 64 Years) (1 - PCV) [code = Pneumococcal Vaccine: Pediatrics (0 to 5 Years) and At-Risk Patients (6 to 64 Years) (1 - PCV)] Future Scheduled 2021-12-09 Hepatitis C screening [facility] Test 13:56:39 (procedure) [code = 392687055] Future Scheduled 2021-12-09 Screening for [facility] Test 13:56:39 malignant neoplasm of cervix (procedure) [code = 780156266] Future Scheduled 2021-12-09 BREAST CANCER [facility] Test 13:56:39 SCREENING [code = BREAST CANCER SCREENING] Future Scheduled 2021-12-09 COLONOSCOPY SCREENING [facility] Test 13:56:39 [code = COLONOSCOPY SCREENING] Future Scheduled 2021-12-09 SHINGLES VACCINES (1 [facility] Test 13:56:39 of 2) [code = SHINGLES VACCINES (1 of 2)] Future Scheduled 2021-12-09 COVID-19 VACCINE (3 - [facility] Test 13:56:39 Booster for Moderna series) [code = COVID-19 VACCINE (3 - Booster for Moderna series)] Future Scheduled 2021-12-09 HEPATITIS B VACCINES [facility] Test 13:56:39 (1 of 3 - Risk 3-dose series) [code = HEPATITIS B VACCINES (1 of 3 - Risk 3-dose series)] Future Scheduled 2021-12-09 INFLUENZA VACCINE Method [facility] Test 13:56:39 [code = INFLUENZA VACCINE] Encounters Start End Encounter Admission Attending Care Care Encounter Source Date/Time Date/Time Type Type Clinicians Facility Department ID 2022-08-23 Outpatient SACHA Souza [facility] [id number] Common 11:19:00 Annalise 70325 [facility] 2022-06-09 Outpatient SACHA Souza [facility] [id number] Common 10:28:01 Annalise 01287 [facility] 2022-05-12 Outpatient SACHA Souza [facility] [id number] Common 09:47:00 Annalise 85074 [facility] 2022 Outpatient SACHA Souza [facility] [id number] Common 07:49:00 Annalise 51321 [facility] 2022-03-25 Outpatient Tupman, STLMLC STLMLC [id number] Common 12:49:01 Annalise [facility] 2022-03-24 Outpatient Tupman, STLMLC STLMLC [id number] Common 11:16:01 Annalise [facility] 2022-03-23 Outpatient Kattegummul STLMLC STLMLC [id number] - Common 15:33:00 a, Madhu [facility] 2021-10-13 Outpatient Kattegummul STLMLC STLMLC [id number] - Common 14:25:01 a, Madhu [facility] 2021-05-06 Outpatient Kattegummul STLMLC STLMLC [id number] Common 14:30:56 a, Madhu [facility] 2021-05-06 Outpatient Kattegummul STLMLC STLMLC [id number] - Common 14:26:04 a, Madhu 86404 [facility] 2021-05-06 Outpatient Kattegummul STLMLC STLMLC [id number] Common 14:05:28 a, Madhu 42857 [facility] 2021-05-06 Outpatient Kattegummul STLMLC STLMLC [id number] Common 13:37:29 a, Madhu 72767 [facility] 2021-05-06 Outpatient Tupman, STLMLC STLMLC [id number] Common 13:36:02 Annalise 84358 [facility] 2021-05-06 Outpatient Tupman, STLMLC STLMLC [id number] Common 11:25:36 Annalise 22190 [facility] 2021-02-09 Emergency [facility] [id number] [facility]-01 2022-10-01 Documentat Alex, 1.2.840.1 [id number] Methodi 00:00:00 00:00:00 ion Shezmine 53335.1.[address] [place] 3.430.2.7 Hospit a .3.004928 l .8 2022-09-18 2022-09-23 [facility] Daniel Saucedo 1.2.840.1 [id number] Methodi 22:38:00 16:51:00 Encounter Bebeto Ward 25148.1.[address] 3.430.2.7 Hospit a .3.405585 l .8 2022-09-18 2022-09-23 Inpatient SYLVIA [facility] [id number] [place] 00:00:00 00:00:[address] 2022-09-18 2022-09-18 Travel 1.2.840.1 1.2.033.520 5460 [id number] Methodi 00:00:00 00:00:[address] 3.430.2.7 0.2.7.3.698 Ho spita .3.605049 084.8 l .8 2022-09-01 2022-09-09 [facility] Bebeto Ward 1.2.840.1 [id number] [id number] Methodi 15:36:00 15:19:00 Encounter Jeremy Sandoval 80603.1.[address] [facility] Ricardo Alemanalo 3.430.2.7 Hospita .3.521828 l .8 2022-09-01 2022-09-09 Inpatient SYLVIA [facility] [id number] [place] 00:00:00 00:00:[address] 2022-09-01 2022-09-01 Telephone Alex, 1.2.840.1 [id number] [id number] Methodi 00:00:00 00:00:[address] [place] 3.430.2.7 Hospit a .3.969993 l .8 2022-09-01 2022-09-01 Travel 1.2.840.1 1.2.892.007 5634 [id number] Methodi 00:00:00 00:00:[address] 3.430.2.7 0.2.7.3.698 spita .3.601948 084.8 l .8 2022-08-11 2022-08-11 Hospital Radiology [facility] 1.2.840.114 [id number] Univers 10:36:25 23:59:00 Encounter PERI 350.1.13.10 [facility] [place] [id number] [facility] [address] 2022-08-11 2022-08-11 Outpatient R RADIOLOGY [facility] [id number] Univers 10:15:12 10:35:00 ity of [facility] 2022-08-11 2022-08-11 Hospital Radiology [facility] 1.2.840.114 [id number] Univers 10:15:12 10:35:00 Encounter PERI 350.1.13.10 [place] [id number] [facility] [address] [place] 2022-08-11 2022-08-11 Brick Setter Roberta, Adc Lab Main [facility] 1.2.8 40.114 [id number] Univers 10:00:00 10:15:00 Visit Handy Rhoades 350.1.13.10 it[facility] [place] [id number] Nd dical NAL [address] [facility] 2022-08-07 2022-08-07 Emergency X Sukhdev SOTO [facility] ERT [id number] Univers 00:50:00 02:49:00 ity of [facility] 2022-08-07 2022-08-07 Emergency Sukhdev Soto [facility] 1.2.840.114 10 [id number] Univers 00:50:00 02:49:00 Mary PERI 350.1.13.10 i ty [facility] [place] [id number] [facility] [address] 2022-07-28 2022-08-03 [facility] Bebeto Ward 1.2.840.1 [id number] [id number] Methodi 15:18:00 17:26:00 Encounter Willian Singleton 29904.1.[address] Nakia Cruz 3.430.2.7 Hos alvaro .3.771893 l .8 2022-08-03 2022-08-03 Surgery Thomas, 1.2.840.1 [id number] [id number] Methodi 15:00:00 16:00:[address] 3.430.2.7 Hospit a .3.941062 l .8 2022-08-03 2022-08-03 Anesthesia MarloKandice quezada 1.2.840.1 [id number] 2 [id number] Methodi 15:07:00 15:29:00 Event Ariel Garza 27773.1.[address] 3.430.2.7 Hospit a .3.504989 l .8 2022-07-28 2022-08-03 [facility] NAKIA CRUZ [facility] [id number] [id number] [place] 00:00:00 00:00:[address] 2022-07-28 2022-07-28 Travel 1.2.840.1 1.2.176.092 9430 [id number] Methodi 00:00:00 00:00:[address] 3.430.2.7 0.2.7.3.698 Ho spita .3.564432 084.8 l .8 2022-07-12 2022-07-12 Telephone Aimta 1.2.840.1 [id number] 658 [id number] Methodi 00:00:00 00:00:[address] 3.430.2.7 Hospit a .3.373833 l .8 2022-07-12 2022-07-12 Telephone Amita 1.2.840.1 [id number] 743 [id number] Methodi 00:00:00 00:00:[address] 3.430.2.7 Hospit a .3.672717 l .8 2022-07-04 2022-07-09 Hospital Nakia Cruz 1.2.840.1 [id number] 21 [id number] Methodi 17:50:00 11:59:00 Encounter Sharita Suresh 03962.1.[address] [facility] 3.430.2.7 Hospita .3.506834 l .8 2022-07-04 2022-07-09 [place] [address] [id number] 892 [place] 00:00:00 00:00:00 Encounter BEBETO [address] 2022-06-23 2022-06-30 [facility] 1.2.840.1 [id number] 027 [id number] Methodi 17:40:00 16:19:00 Encounter Nakia Cruz 34946.1.[address] 3.430.2.7 Hospit a .3.735075 l .8 2022-06-23 2022-06-30 [place] 085214 [id number] 159 [place] 00:00:00 00:00:00 Encounter BEBETO [address] 2022-06-29 2022-06-29 Surgery Sen, 1.2.840.1 [id number] 7869 Methodi 09:00:00 10:25:[address] 3.430.2.7 Hospit a .3.536054 l .8 2022-06-29 2022-06-29 Surgery Sen, 1.2.840.1 [id number] 9924 Methodi 09:00:00 10:25:[address] 3.430.2.7 Hospit a .3.861453 l .8 2022-06-28 2022-06-28 Hospital Sen, 1.2.840.1 [id number] [id number] Methodi 09:15:00 23:59:00 Encounter Adama 21239.1.1 074 s t 3.430.2.7 Hospit a .3.413090 l .8 2022-06-28 2022-06-28 Hospital SEN, 1.2.840.1 [id number] [place] 00:00:00 00:00:00 Encounter ADAMA 69791.1.1 [address].7 [address] .3.036327 .8 2022-06-23 2022-06-23 Travel 1.2.840.1 1.2.340.837 7836 [id number] Methodi 00:00:00 00:00:[address] 3.430.2.7 0.2.7.3.698 Ho spita .3.186023 084.8 l .8 2022-06-23 2022-06-23 Travel 1.2.840.1 1.2.595.618 7497 336650 Methodi 00:00:00 00:00:[address] 3.430.2.7 0.2.7.3.698 Ho spita .3.539096 084.8 l .8 2022-06-14 2022-06-22 Office CoreyJose Raul hooks 1.2.840.1 104 [id number] Methodi 10:30:00 19:10:55 Visit Krystyna Mustafa 13818.1.[address] 3.430.2.7 Hospit a .3.041378 l .8 2022-06-14 2022-06-22 Office Corey Jose Raul Nic 1.2.840.1 104 [id number] Methodi 10:30:00 19:10:55 Visit Krystyna Mustafa 23985.1.[address] 3.430.2.7 Hospit a .3.616982 l .8 2022-06-22 2022-06-22 Documentat Estephania, 1.2.840.1 [id number] 961 [id number] Methodi 00:00:00 00:00:00 ion aBla 59722.1.[address] Louie 3.430.2.7 Hospit a .3.556567 l .8 2022-06-22 2022-06-22 Documentat Estephania, 1.2.840.1 [id number] 303 [id number] Methodi 00:00:00 00:00:00 ion Bala 33599.1.[address] Louie 3.430.2.7 Hospit a .3.287085 l .8 2022-06-21 2022-06-21 [facility], 1.2.840.1 [id number] 053 [id number] Methodi 13:18:22 23:59:00 Encounter Jose Raul Nic 96952.1.[address] 3.430.2.7 Hospit a .3.966099 l .8 2022-06-21 2022-06-21 [facility], 1.2.840.1 [id number] Methodi 12:11:22 13:17:00 Encounter Jose Raul Nic 54126.1.[address] 3.430.2.7 Hospit a .3.791675 l .8 2022-06-21 2022-06-21 [facility], 1.2.840.1 [id number] 467 [id number] Methodi 10:28:26 12:10:00 Encounter Jose Raul Nic 95300.1.[address] 3.430.2.7 Hospit a .3.441046 l .8 2022-06-21 2022-06-21 Travel 1.2.840.1 1.2.217.789 6357 [id number] Methodi 00:00:00 00:00:[address] 3.430.2.7 0.2.7.3.698 Ho spita .3.548604 084.8 l .8 2022-06-21 2022-06-21 [facility], 1.2.840.1 [id number] [place] 00:00:00 00:00:00 Encounter RAFIK 59116.1.1 [address] .3.983539 .8 2022-06-21 2022-06-21 [facility], 1.2.840.1 [id number] [place] 00:00:00 00:00:00 Encounter RAFIK 73998.1.1 [address] .3.331432 .8 2022-06-21 2022-06-21 [facility], 1.2.840.1 [id number] 859 [id number] [place] 00:00:00 00:00:00 Encounter JOSE RAUL 17099.1.1 [address] .3.320937 .8 2022-06-21 2022-06-21 Travel 1.2.840.1 1.2.702.921 4862 [id number] Methodi 00:00:00 00:00:[address] 3.430.2.7 0.2.7.3.698 Ho spita .3.336335 084.8 l .8 2022-06-14 2022-06-14 [facility], 1.2.840.1 [id number] Methodi 13:44:44 23:59:00 Encounter Jose Raul Nic 48100.1.[address] 3.430.2.7 Hospit a .3.767907 l .8 2022-06-14 2022-06-14 [facility], 1.2.840.1 [id number] 175 [id number] Methodi 13:44:24 23:59:00 Encounter Jose Raul Nic 16051.1.[address] 3.430.2.7 Hospit a .3.425703 l .8 2022-06-14 2022-06-14 [facility], 1.2.840.1 [id number] Methodi 13:44:01 23:59:00 Encounter Jose Raul Nic 57863.1.[address] 3.430.2.7 Hospit a .3.723613 l .8 2022-06-14 2022-06-14 [facility] Jose Raul Nic 1.2.840.1 104 [id number] Methodi 13:00:00 14:00:00 Work Aramis John 44583.1.[address] 3.430.2.7 Hospit a .3.576328 l .8 2022-06-142022-06-14 Social CoreyJose Raul Nic 1.2.840.1 104 [id number] Methodi 13:00:00 14:00:00 Work Aramis John 75460.1.[address] 3.430.2.7 Hospit a .3.622966 l .8 2022-06-14 2022-06-14 Hospital Corey, 1.2.840.1 [id number] [id number] Methodi 13:43:41 13:43:41 Encounter Rafik Nic 79018.1.[address] 3.430.2.7 Hospit a .3.261161 l .8 2022-06-14 2022-06-14 Nutrition Corey, 1.2.840.1 [id number] 21 [id number] Methodi 10:00:00 11:00:00 Rafik Nic 55902.1.1 929 s t 3.430.2.7 Hospit a .3.886953 l .8 2022-06-14 2022-06-14 Nutrition Corey, 1.2.840.1 [id number] 21 [id number] Methodi 10:00:00 11:00:00 Julesik Nic 17460.1.1 929 s t 3.430.2.7 Hospit a .3.171993 l .8 2022-06-14 2022-06-14 Office Jose Raul Nicole Nic 1.2.840.1 104 [id number] Methodi 10:15:00 10:30:00 Visit Adama Duarte 32260.1.[address] 3.430.2.7 Hospit a .3.430493 l .8 2022-06-14 2022-06-14 Office CoreyJose Raul medina Nic 1.2.840.1 104 [id number] [id number] Methodi 10:15:00 10:30:00 Visit Gerald Adama 09323.1.[address] 3.430.2.7 Hospit a .3.030349 l .8 2022-06-14 2022-06-14 Clinical Corey Julesramon Nic 1.2.840.1 10 [id number] Methodi 09:00:00 10:30:00 Support Laura Aguilera 62825.1.1 931 s t 3.430.2.7 Hospit a .3.308649 l .8 2022-06-14 2022-06-14 [facility] Jose Raul Nicole 1.2.840.1 10 [id number] Methodi 09:00:00 10:30:00 Support Laura Aguilera 20080.1.1 931 s t 3.430.2.7 Hospit a .3.606515 l .8 2022-06-14 2022-06-14 Lab Reunion [facility], 1.2.840.1 [id number] 2099 [id number] Methodi 07:00:00 07:10:00 Jose Raul Lucero 74995.1.1 926 s t 3.430.2.7 Hospit a .3.360750 l .8 2022-06-14 2022-06-14 [facility] [id number] 2099 [id number] Methodi 07:00:00 07:10:00 Jose Raul Lucero 24490.1.1 926 s t 3.430.2.7 Hospit a .3.956651 l .8 2022-06-14 2022-06-14 Travel 1.2.840.1 1.2.420.825 8641 311173 Methodi 00:00:00 00:00:[address] 3.430.2.7 0.2.7.3.698 Ho spita .3.135298 084.8 l .8 2022-06-14 2022-06-14 [facility], 1.2.840.1 [id number] 769 [id number] [place] 00:00:00 00:00:00 Kirill PETER 31094.1.1 [address] .3.311607 .8 2022-06-14 2022-06-14 [facility], 1.2.840.1 [id number] 991 [id number] [place] 00:00:00 00:00:00 Encounter RAFIK 76917.1.1 [address] .3.999681 .8 2022-06-14 2022-06-14 [facility], 1.2.840.1 [id number] 400 [id number] [place] 00:00:00 00:00:00 Encounter RAFIK 87977.1.1 [address] .3.794829 .8 2022-06-14 2022-06-14 [facility], 1.2.840.1 [id number] 027 [id number] [place] 00:00:00 00:00:00 Encounter RAFIK 45843.1.1 [address] .3.093077 .8 2022-06-14 2022-06-14 Travel 1.2.840.1 1.2.531.334 9342 536297 Methodi 00:00:00 00:00:[address] 3.430.2.7 0.2.7.3.698 Ho spita .3.871986 084.8 l .8 2022-06-13 2022-06-13 Travel 1.2.840.1 1.2.361.608 3824 610931 Methodi 00:00:00 00:00:[address] 3.430.2.7 0.2.7.3.698 Ho spita .3.571689 084.8 l .8 2022-06-13 2022-06-13 Travel 1.2.840.1 1.2.893.352 2697 933107 Methodi 00:00:00 00:00:[address] 3.430.2.7 0.2.7.3.698 Ho spita .3.802880 084.8 l .8 2022-06-08 2022-06-08 Lindy Estephania, 1.2.840.1 [id number] 304499 0193 Methodi 00:00:00 00:00:00 Only Bala 88732.1.[address] Louie 3.430.2.7 Hospit a .3.311312 l .8 2022-06-08 2022-06-08 Orders Estephania, 1.2.840.1 [id number] 044067 0624 Methodi 00:00:00 00:00:00 Only Bala 59132.1.[address] Louie 3.430.2.7 Hospit a .3.527386 l .8 2022-05-24 2022-05-30 [facility] 1.2.840.1 [id number] 5 [id number] Methodi 16:54:00 17:08:00 Encounter Sharita Suresh 73429.1.[address] [facility] 3.430.2.7 Hospita .3.874527 l .8 2022-05-24 2022-05-30 [facility] 874 [id number] 868 [place] 00:00:00 00:00:00 Encounter BEBETO [address] 2022-05-28 2022-05-28 Surgery Sanches, 1.2.840.1 [id number] 587370 4618 Methodi 16:15:00 17:30:00 [place] 27521.1.[address] 3.430.2.7 Hospit a .3.937820 l .8 2022-05-28 2022-05-28 Surgery Sanches, 1.2.840.1 [id number] 361504 7731 Methodi 16:15:00 17:30:00 Co[place] M[address] 89016.1.[address] 3.430.2.7 Hospit a .3.831680 l .8 2022-05-28 2022-05-28 Anesthesia Fer Delarosa 1.2.840 .1 [id number] Methodi 16:06:00 16:35:00 Event Cecilia Martino 95585.1.[address] 3.430.2.7 Hospit a .3.339013 l .8 2022-05-28 2022-05-28 Anesthesia Fer Delarosa 1.2.840 .1 [id number] [id number] Methodi 16:06:00 16:35:00 Event Cecilia Martino 46442.1.[address] 3.430.2.7 Hospit a .3.871463 l .8 2022-05-25 2022-05-25 Telephone Pops, 1.2.840.1 [id number] 2099940 Methodi 00:00:00 00:00:[address] 3.430.2.7 Hospit a .3.061336 l .8 2022-05-25 2022-05-25 Telephone Pops, 1.2.840.1 [id number] 2099 193952 Methodi 00:00:00 00:00:[address] 3.430.2.7 Hospit a .3.867690 l .8 2022-05-24 2022-05-24 Travel 1.2.840.1 1.2.567.959 8755 452800 Methodi 00:00:00 00:00:[address] 3.430.2.7 0.2.7.3.698 Ho spita .3.663371 084.8 l .8 2022-05-24 2022-05-24 Travel 1.2.840.1 1.2.326.608 6479 957649 Methodi 00:00:00 00:00:[address] 3.430.2.7 0.2.7.3.698 Ho spita .3.829197 084.8 l .8 2022-05-06 2022-05-20 [facility] Oneil Rodriguez 1.2.840.1 0748174 2099 [id number] Methodi 12:53:00 15:57:00 [facility] Anand Arora 99641.1.[address] [facility] 3.430.2.7 Hospita .3.553606 l .8 2022-05-06 2022-05-20 [facility] 064 69857 43804 [place] 00:00:00 00:00:00 Encounter [address] 2022-05-19 2022-05-19 Anesthesia Jeovany Sanches [facility] 1.2.840.1 20713 1041 [id number] Methodi 16:20:00 16:54:00 Event Estefania Hameed 89218.1.[address] 3.430.2.7 Hospit a .3.909572 l .8 2022-05-19 2022-05-19 Anesthesia Jeovany Sanches [facility] 1.2.840.1 64236 1042 [id number] Methodi 16:20:00 16:54:00 Event Estefania Hameed 01291.1.[address] 3.430.2.7 Hospit a .3.421240 l .8 2022-05-19 2022-05-19 Surgery Duchini, 1.2.840.1 [id number] 54923 Methodi 15:30:00 16:30:[address] 3.430.2.7 Hospit a .3.812940 l .8 2022-05-19 2022-05-19 Surgery Duchini, 1.2.840.1 552298144 21001 11386 Methodi 15:30:00 16:30:[address] 3.430.2.7 Hospit a .3.436522 l .8 2022-05-06 2022-05-06 Travel 1.2.840.1 1.2.920.810 8393 535491 Methodi 00:00:00 00:00:[address] 3.430.2.7 0.2.7.3.698 Ho spita .3.732330 084.8 l .8 2022-05-06 2022-05-06 Travel 1.2.840.1 1.2.459.498 6799 895967 Methodi 00:00:00 00:00:[address] 3.430.2.7 0.2.7.3.698 spita .3.919138 084.8 l .8 2022-04-15 2022-04-15 Emergency X ALEENA [facility] ERT [id number] 57 Univers 20:21:00 22:43:00 ESTEPHANIA [facility] 2022-04-15 2022-04-15 [facility] 1.2.107.041 6566 9933 Univers 20:21:00 22:43:00 Estephania WHITT 350.1.13.10 i ty [facility] 4.2.7.2.686 [facility] [id number] [address] 2022-04-09 2022-04-09 Emergency [facility] ERT [id number] 31 Univers 19:38:00 22:06:00 EMILY [facility] 2022-04-09 2022-04-09 Emergency [facility] 1.2.542.710 4588 3215 Univers 19:38:00 22:06:00 Emily WHITT 350.1.13.10 ity [facility] 4.2.7.2.686 [facility] [phone] [place] [address] [address] 2022-03-17 2022-03-17 Documentat Ijir, 1.2.840.1 754389948 367 7168455 Methodi 00:00:00 00:00:00 ion Rhoda 87464.1.[address] 3.430.2.7 Hospit a .3.376266 l .8 2022-03-17 2022-03-17 Documentat Ijir, 1.2.840.1 127823573 251 1694184 Methodi 00:00:00 00:00:[address] ion [address]oda 23578.1.[address] 3.430.2.7 Hospit a .3.858927 l .8 2022-02-25 2022-02-27 Emergency RehrerStevo 1.2.840.1 10 8512208 [id number] Methodi 12:36:00 18:45:00 Jeremy Sandoval 39952.1.[address] 3.430.2.7 Hospit a .3.979248 l .8 2022-02-25 2022-02-27 Emergency DINAKAR, 1.2.840.1 460072171 382 [id number] [place] 00:00:00 00:00:00 JEREMY 95259.1.[address] .3.445123 .8 2022-02-25 2022-02-25 Travel 1.2.840.1 1.2.562.654 9000 797847 Methodi 00:00:00 00:00:[address] 3.430.2.7 0.2.7.3.698 Ho spita .3.023428 084.8 l .8 2022-02-25 2022-02-25 Travel 1.2.840.1 1.2.963.630 7345 006271 Methodi 00:00:00 00:00:[address] 3.430.2.7 0.2.7.3.698 Ho spita .3.057540 084.8 l .8 2022-02-15 2022-02-15 Emergency [facility] [id number] 86 Univers 13:44:00 16:34:00 FLORIAN aburto [facility] 2022-02-15 2022-02-15 Emergency [facility] 1.2.746.950 6727 7602 Univers 13:44:00 16:34:00 Florian WHITT 350.1.13.10 i ty [facility] 4.2.7.2.686 [facility] [phone] [address] 2022-01-31 2022-02-04 [facility] Rolando Olivier 1.2.840.1 67400 1027 [id number] Methodi 18:11:00 16:36:00 Encounter Bebeto Ward 57534.1.[address] Nakia Cruz 3.430.2.7 Hos alvaro .3.814846 l .8 2022-01-31 2022-02-04 [facility] Rolando Olivier 1.2.840.1 87516 1027 [id number] Methodi 18:11:00 16:36:00 Encounter Bebeto Ward 59528.1.[address] Trippg 3.430.2.7 Hos alvaro .3.235219 l .8 2022-02-03 2022-02-03 Anesthesia Aziza Cordero 1.2.840.1 935513196 [id number] Methodi 14:37:00 15:02:00 Event Bebeto Heck 09768.1.[address] 3.430.2.7 Hospit a .3.976166 l .8 2022-02-03 2022-02-03 Anesthesia Aziza Cordero 1.2.840.1 700731029 [id number] Methodi 14:37:00 15:02:00 Event Bebeto Heck 30491.1.[address] 3.430.2.7 Hospit a .3.595189 l .8 2022-02-03 2022-02-03 Surgery Sanches, 1.2.840.1 [id number] 478793 3173 Methodi 14:30:00 15:00:00 [place] M. 95322.1.[address] 3.430.2.7 Hospit a .3.324457 l .8 2022-02-03 2022-02-03 Surgery Sanches, 1.2.840.1 058596491 516519 4131 Methodi 14:30:00 15:00:00 [place] M[address]323.1.[address] 3.430.2.7 Hospit a .3.660777 l .8 2022-02-02 2022-02-02 Prep for Sanches, 1.2.840.1 227090878103 02650 Methodi 00:00:00 00:00:00 Surgery Coe M. 89892.1.[address] 3.430.2.7 Hospit a .3.419000 l .8 2022-02-02 2022-02-02 Prep for Sanches, 1.2.840.1 16860 Methodi 00:00:00 00:00:00 Surgery Coe M. 35050.1.[address] 3.430.2.7 Hospit a .3.708958 l .8 2022-01-01 2022-01-06 [facility] 1.2.840 .1 [id number] [id number] Methodi 23:18:00 19:11:00 Encounter Nakia Cruz 11805.1.[address] [facility] 3.430.2.[facility] Hospita .3.389371 l .8 2022-01-01 2022-01-06 [facility] 1.2.840 .1 [id number] [id number] Methodi 23:18:00 19:11:00 Encounter Nakia Cruz 24339.1.[address] [facility] 3.430.2.7 Hospita .3.314960 l .8 2022-01-05 2022-01-05 [facility] 1.2.840.1 [id number] 84214 70729 Methodi 16:00:00 16:30:[address] 3.430.2.7 Hospit a .3.773377 l .8 2022-01-05 2022-01-05 Surgery Duchini, 1.2.840.1 590909808 79509 44976 Methodi 16:00:00 16:30:[address] 3.430.2.7 Hospit a .3.892672 l .8 2022-01-05 2022-01-05 Anesthesia Handy Dietrich 1.2.840 .1 773299153 9619352773 Methodi 15:55:00 16:18:00 Event Bebeto Heck 87931.1.[address] 3.430.2.7 Hospit a .3.646580 l .8 2022-01-05 2022-01-05 Anesthesia Handy Dietrich 1.2.840 .1 066366336 4126610950 Methodi 15:55:00 16:18:00 Event Bebeto Heck 41001.1.[address] 3.430.2.7 Hospit a .3.145629 l .8 2022-01-02 2022-01-02 Travel 1.2.840.1 1.2.691.496 9649 311397 Methodi 00:00:00 00:00:[address] 3.430.2.7 0.2.7.3.698 Ho spita .3.000598 084.8 l .8 2022-01-02 2022-01-02 Travel 1.2.840.1 1.2.119.662 1122 476901 Methodi 00:00:00 00:00:[address] 3.430.2.7 0.2.7.3.698 Ho spita .3.019979 084.8 l .8 2021-12-11 2021-12-18 [facility] Stevo Zackary 1.2.840.1 104 532239 5722718180 Methodi 16:59:00 17:46:00 Encounter Jeremy Sandoval 03513.1.[address] Bebeto Ward 3.430.2.7 Hospita .3.006274 l .8 2021-12-11 2021-12-18 [facility] Stevo Raymundo 1.2.840.1 104 397823 [id number] Methodi 16:59:00 17:46:00 Encounter Jeremy Sandoval 64956.1.[address] Bebeto Ward 3.430.2.7 Hospita .3.278892 l .8 2021-11-26 2021-12-03 [facility] 1.2.840.1 89462 1027 [id number] Methodi 16:08:00 14:06:00 Encounter Jeremy Sandoval 35845.1.[address] Jose, Ahmed Sp 3.430.2.7 Hospita Nakia .3.768223 l .8 2021-11-262021-12-03 [facility] NANCYNAKIA [facility] 064 937172 2894 [place] 00:00:00 00:00:00 Encounter [address] 2021-11-30 2021-11-30 Anesthesia Mahnaz Trujillo 1.2.840.1 1 [id number] [id number] Methodi 14:50:00 15:11:00 Event Feng Burgos 24643.1.[address] 3.430.2.7 Hospit a .3.176444 l .8 2021-11-30 2021-11-30 Anesthesia Mahnaz Trujillo 1.2.840.1 1 68010228 [id number] Methodi 14:50:00 15:11:00 Event Feng Burgos 34073.1.[address] 3.430.2.7 Hospit a .3.925018 l .8 2021-11-30 2021-11-30 Surgery Duchini, 1.2.840.1 581752346 06533 41533 Methodi 14:30:00 15:00:[address] 3.430.2.7 Hospit a .3.116044 l .8 2021-11-30 2021-11-30 Surgery Duchini, 1.2.840.1 066002611 47960 84501 Methodi 14:30:00 15:00:[address] 3.430.2.7 Hospit a .3.554858 l .8 2021-10-21 2021-10-26 [facility] 1.2.840.1 [id number] [id number] Methodi 09:04:00 14:43:00 Encounter Nakia Cruz 22538.1.[address] MaiteAnand 3.430.2.7 Hospita .3.026543 l .8 2021-10-21 2021-10-26 [facility] 1.2.840.1 [id number] Methodi 09:04:00 14:43:00 Encounter Nakia Cruz 68640.1.[address] Anand Arora 3.430.2.7 Hospita .3.675171 l .8 2021-10-23 2021-10-23 Surgery Duchini, 1.2.840.1 103383955 21001 64818 Methodi 12:30:00 13:30:[address] 3.430.2.7 Hospit a .3.306314 l .8 2021-10-23 2021-10-23 Surgery Duchini, 1.2.840.1 953506931 21001 52917 Methodi 12:30:00 13:30:[address] 3.430.2.7 Hospit a .3.688417 l .8 2021-10-23 2021-10-23 Anesthesia Consuelo, Aziza 1.2.840.1 436629563 [id number] Methodi 12:25:00 12:53:[address] 3.430.2.7 Hospit a .3.512485 l .8 2021-10-23 2021-10-23 Anesthesia Consuelo, Oya 1.2.840.1 928403272 [id number] Methodi 12:25:00 12:53:[address] 3.430.2.7 Hospit a .3.831827 l .8 2021-10-21 2021-10-21 Travel 1.2.840.1 1.2.642.943 0881 695180 Methodi 00:00:00 00:00:[address] 3.430.2.7 0.2.7.3.698 Ho spita .3.925095 084.8 l .8 2021-10-21 2021-10-21 Travel 1.2.840.1 1.2.825.092 5531 596006 Methodi 00:00:00 00:00:[address] 3.430.2.7 0.2.7.3.698 Ho spita .3.883622 084.8 l .8 2021-09-28 2021-09-29 Emergency X Sukhdev SOTO [facility] ERT 213800 0779 Univers 22:03:00 00:15:00 ity of [facility] 2021-09-28 2021-09-29 Emergency Sukhdev Soto [facility] 1.2.840.114 94 [id number] Univers 22:03:00 00:15:00 Mary WHITT 350.1.13.10 i ty of [place] 4.2.7.2.686 [facility] [phone] [facility] 084 [place] 2021-09-28 2021-09-28 Orders Doctor VERONIQUE 1.2.840.114 [id number] Univers 00:00:00 00:00:00 Only Unassigned, GONZALO 350.1.13.10 ity of [place] [facility] 4.2.7.2.686 Quang [id number] [facility] [address] 2021-04-07 2021-04-07 Letter Orthopedic [facility] 1.2.840.114 900 56582 Univers 00:00:00 00:00:00 (Out) Clinic SPECIALTY 350.1.13.10 ity of [facility] 4.2.7.2.686 [facility] AT [phone] Nd mariacarol JBTammi [address] [place] [address] 2021-04-02 2021-04-02 Emergency [facility] [id number] Univers 12:58:00 15:25:00 FOLUSHO ity of [facility] 2021-04-02 2021-04-02 [facility] 1.2.840.114 89 321149 Univers 12:58:00 15:25:00 Azalea WHITT 350.1.13.10 ity of [place] 4.2.7.2.686 [facility] [id number] [facility] 084 [place] 2021-03-11 2021-03-11 Telephone VERONIQUE Cruz 1.2.018.764 4516 9674 Univers 00:00:00 00:00:00 Frances SÁNCHEZ 350.1.13.10 it y of HOSPITAL 4.2.7.2.686 Quang as [phone] [facility] [address] 2021-03-10 2021-03-10 Outpatient Sami SHEFFIELD [facility] [id number] 037 Univers 14:45:00 14:51:40 LEXIE ittammi [facility] 2021-03-10 2021-03-10 Laboratory Only, Ang Db Test [facility] 1.2.8 40.114 [id number] Univers 14:29:53 14:44:53 Only Unknown, Attending HEALTH 350.1.13.10 ity of [place] 4.2.7.2.686 Quang as MARINA?BLEA [phone] Nd dical [address] MEDICAL OFFICE BUILDING 2021-03-10 2021-03-10 Orders Doctor VERONIQUE 1.2.840.114 [id number] Univers 00:00:00 00:00:00 Only Unassigned, GONZALO 350.1.13.10 ity of [place] [facility] 4.2.7.2.686 Quang as [id number] [facility] [address] 2021-02-18 2021-02-20 [facility] Sharita Suresh 1.2.840.1 [id number] Methodi 15:45:00 14:08:00 Encounter Jeremy Sandoval 86049.1.[address] 3.430.2.7 Hospit a .3.685944 l .8 2021-02-03 2021-02-04 Emergency X [facility] ERT [id number] 03 Univers 21:10:00 03:21:00 GARTH [facility] 2020-10-21 2020-10-27 Inpatient WARD, [facility] 064 [id number] 3500 [place] 00:00:00 00:00:[address] BEB[address] 2020-10-06 2020-10-06 Transition Jocelyne Taylor 1.2.840.114 853 53257 Univers 00:00:00 00:00:00 of Care Madiha Sotelo 350.1.13.10 i ty of [place]2.[place] [phone] [facility] [address] 2020-09-28 2020-10-03 Hospital Rene Evans [facility] 1.2.840. 114 [id number] Univers 22:23:00 13:05:00 Encounter Shaina Pinto [place] 350.1.13.10 ity of [place] 4.2.7.2.686 [place] [facility] [id number] [facility] [address] 2020-09-28 2020-09-28 Orders Doctor VERONIQUE 1.2.840.114 [id number] 04 Univers 00:00:00 00:00:00 Only Unassigned, GONZALO 350.1.13.10 ity of [facility] 4.2.7.2.686 Quang as [id number] [facility] [address] 2020-09-09 2020-09-12 Inpatient NAKIA CRUZ [facility] 064 56512 73112 [place] 00:00:00 00:00:00 462 Method i 2020-08-08 2020-08-08 [facility] 99804 71295 Univers 15:40:00 15:40:00 TERRI ity [facility] 2020-07-11 2020-07-11 Outpatient [facility] [id number] 344 Univers 15:40:00 15:40:00 ity [facility] 2020-06-09 2020-06-22 Inpatient NAKIA CRUZ [facility] 064 55389 54845 [place] 00:00:00 00:00:00 836 Method i 2020-03-19 2020-03-23 Inpatient DINAKAR, [facility] 372 [id number] 848 [place] 00:00:00 00:00:00 JEREMY 742 Method i 2020-03-14 2020-03-18 Inpatient DINAKAR, [facility] 276 [id number] 585 [place] 00:00:00 00:00:00 JEREMY 157 Method i 2020-02-13 2020-02-13 Laboratory Lab, Adc Fam Pob I [facility] 1.2. 840.114 [id number] Univers 10:22:10 10:42:10 Only Dulce Mari 350.1.13.10 ity of [place] 4.2.7.2.686 Quang as Professio [phone] [place] [address] [address] [employer] 2020-02-13 2020-02-13 Laboratory Lab, [facility] 1.2.840.114 79 [id number] 10:22:10 10:42:10 Only Fam Pob I Health 350.1.13.10 [place] 4.2.7.2.686 Professio [phone] nal 044 Office [address] One 2019-09-28 2019-09-28 Outpatient [facility] 31 [id number] Common 09:00:00 09:00:00 t Bone Bone and Spiri t and Joint [facility] 2019-09-18 2019-09-18 Out[facility] 30 72082 Common 09:30:00 09:30:00 t Bone Bone and Spiri t and Joint [facility] 2019-08-14 2019-08-14 Transition Jocelyne Alexandra 1.2.840.114 754 23772 Univers 00:00:00 00:00:00 of Care Jovanny Sotelo 350.1.13.10 ity of [place] 4.2.7.2.686 [facility] [phone] [facility] 403 [address] 2019-08-14 2019-08-14 Transition Jocelyne Alexandra 1.2.840.114 754 29756 00:00:00 00:00:00 of Care Jovanny Sotelo 350.1.13.10 [place] 4.2.7.2.686 [id number] 403 2019-08-10 2019-08-11 Inpatient U [facility] [id number] Univers 02:55:00 16:09:00 VENKATESHNAN ity of [facility] 2019-08-10 2019-08-11 [facility] 1.2.149.847 3494 4528 Univers 02:55:00 16:09:00 Encounter Shaina Whitt 350.1.13.10 ity of [place] 4.2.7.2.686 [facility] [id number] [facility] [address] 2019-08-10 2019-08-11 [facility] 1.2.442.969 4198 4528 02:55:00 16:09:00 Encounter Shaina Whitt 350.1.13.10 [place] 4.2.7.2.686 [place] [id number] 081 Results Test Description Test Time Test Comments Results Result Comments Source Urine culture 2022-09-19 14:39:00 Test Item Value Reference Range Interpretation Comme nts Urine culture (test code = 1752375) SEE COMMENT [facility] [id number] 20:21:20 Test Item Value Reference Range Interpretation Comments Case number (test code = [id number]) Cytology See link below for (non-gynecological) PDF Lab Report report (test code = 1178) Result status (test code This is Final Report = [id number]) [id number] [id number] 07:11:37 Test Item Value Reference Range Interpretation Comments TROPONIN I (test code = 0.002 ng/mL <=0.034 0996029625) SNOW (test code = SNOW) Reference (Normal) [...] biotin. Lab Interpretation Normal (test code = 04586-4) [facility] WITH [id number] 07:03:49 Test Item Value Reference Range Interpretation Comments WBC (test code = 2.64 See_Comment L [Automated 6610-2) message] The sy stem which generated this result transmitted reference range : 4.30 - 11.10 10*3/?L. The reference range was not used to interpret this result as normal/abnormal . RBC (test code = 3.33 See_Comment L [Automated 189-8) message] The sy stem which generated this [...] (test code = 60.6 fL 39.0-49.9 H 06660-4) RDW-CV (test code = 17.4 % 12.0-15.5 H 788-0) PLT (test code = 52 See_Comment L [Automated 777-3) message] The sy stem which generated this result transmitted reference range : 166 - 358 10*3/ ?L. The reference r davi was not used to interpret this result as normal/abnormal . MPV (test code = 11.8 fL 9.5-12.9 31702-9) IPF % (test code = 3.2 % 1.3-7.7 Platelet count [id number]) measured by fluorescence method. NRBC/100 WBC (test 0.0 See_Comment [Automat ed code = 0192014803) message] The system which generated this result transmitted reference range : 0.0 - 10.0 /100 WBCs. The refer ence range was not u sed to interpret th is result as normal/abnormal . NRBC x10^3 (test code See_Comment [Auto mated = 1366519036) message] The s ystem which generated this result transmitted reference range : 10*3/?L. The reference range was not used to interpret this result as normal/abnormal . GRAN MAT (NEUT) % 63.9 % (test code = 770-8) IMM GRAN % (test code 0.40 % = 0742664910) LYMPH % (test code = 20.5 % 736-9) MONO % (test code = 11.7 % 5905-5) EOS % (test code = 2.7 % 713-8) BASO % (test code = 0.8 % 706-2) GRAN MAT x10^3(ANC) 1.69 10*3/uL 1.88-7.09 L (test code = 9926008735) IMM GRAN x10^3 (test 0.00-0.06 code = 8397639018) LYMPH x10^3 (test code 0.54 10*3/uL 1.32-3.29 L = 731-0) MONO x10^3 (test code 0.31 10*3/uL 0.33-0.92 L = 742-7) EOS x10^3 (test code = 0.07 10*3/uL 0.03-0.39 711-2) BASO x10^3 (test code 0.01-0.07 = 704-7) PLT ESTIMATE (test Decreased Normal A code = 9317-9) Lab Interpretation Abnormal (test code = 29217-4) [facility]. METABOLIC PANEL (20220)2022-08-07 07:00:18 Test Item Value Reference Range Interpretation Comments NA (test code = 139 mmol/L 135-145 3857759438) K (test code = 3.0 mmol/L 3.5-5.0 L 1365054301) CL (test code = 105 mmol/L 98-108 8516143729) CO2 TOTAL (test code = 29 mmol/L 23-31 3647366684) AGAP (test code = 5 2-16 7579045375) BUN (test code = 10 mg/dL 7-23 9093912549) GLUCOSE (test code = 114 mg/dL 70-110 H 0147715540) CREATININE (test code = 0.56 mg/dL 0.50-1.04 7949282405) TOTAL BILI (test code = 2.6 mg/dL 0.1-1.1 H 5092499719) CALCIUM (test code = 7.9 mg/dL 8.6-10.6 L 5407292052) T PROTEIN (test code = 6.1 g/dL 6.3-8.2 L 9389267394) ALBUMIN (test code = 3.1 g/dL 3.5-5.0 L 2126297762) ALK PHOS (test code = 144 U/L 34-122 H 1691154128) ALTv (test code = 52 U/L 5-35 H 1742-6) AST(SGOT) (test code = 61 U/L 13-40 H 9753227163) eGFR (test code = 110.1 mL/min/1.73m2 6006799729) SNOW (test code = SNOW) Association of [...] tests). Lab Interpretation Abnormal (test code = 42739-4) [facility] Test Item Value Reference Range Interpretation Comments MAGNESIUM (test code = 8435082168) 1.8 mg/dL 1.7-2.4 Lab Interpretation (test code = Normal 04770-8) [facility] 06[facility]59:58 Test Item Value Reference Range Interpretation Comments LIPASE (test code = 2571561368) 178 U/L 0-220 Lab Interpretation (test code = Normal 56233-6) [facility] [id number] 14:16:32 Test Item Value Reference Range Interpretation Comments Case number (test code = [id number]) Surgical pathology See link below for report (test code = PDF Lab Report 1103) Result status (test code This is Final Report = [id number]) for [id number] [facility] JdrywqfvCQDY-UvE-0 (COVID-19) RNA [Presence] in Respiratory specimen by HELENA with probe [id number] 00:20:03 Test Item Value Reference Range Interpretation Comments SARS-CoV-2 (COVID-19) RNA Not detected [Presence] in Respiratory specimen by HELENA with probe detection (test code = 22020-5) 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 employed in a Unknown healthcare setting (test code = 06112-8) Whether the patient has symptoms Unknown related to condition of interest (test code = 57633-9) Whether the patient was Unknown hospitalized for condition of interest (test code = 06199-5) Whether the patient was admitted Unknown to intensive care unit (ICU) for condition of interest (test code = 42139-0) Whether patient resides in a Unknown congregate care setting (test code = 99906-2) status (test code = Unknown 94804-1) Date and time of symptom onset Unknown (test code = 61200-5) BROOKE CHOUSARS-CoV-2 (COVID-19) RNA [Presence] in Respiratory specimen by HELENA with probe [id number] 23:53:39 Test Item Value Reference Range Interpretation Comments SARS-CoV-2 (COVID-19) RNA Not detected [Presence] in Respiratory specimen by HELENA with probe detection (test code = 11405-0) 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 employed in a Unknown healthcare setting (test code = 33160-0) Whether the patient has symptoms Unknown related to condition of interest (test code = 27400-9) Whether the patient was Unknown hospitalized for condition of interest (test code = 70322-3) Whether the patient was admitted Unknown to intensive care unit (ICU) for condition of interest (test code = 02117-6) Whether patient resides in a Unknown congregate care setting (test code = 19339-1) status (test code = Unknown 00241-7) Date and time of symptom onset Unknown (test code = 19609-7) [facility] vafktan4256-78-95 14:22:00 Test Item Value Reference Range Interpretation Comments Urine culture Mixed radha Specimen isolate (test <=10-3 col/cc InformationSp ecimen code = 64139-3) Source: Kiet Linnimen Site: Clean cat [facility]2023-03-27 02:43:00 Test Item Value Reference Range Interpretation Comments POC glucose (test code 200 mg/dL 65-99 H Opera tor Name: Stein = 79087-5) SnehalDevice ID : [id number] able: [facility] 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 Interpretation Abnormal (test code = 75595-1) [facility]2023-03-27 02:43:00 Test Item Value Reference Range Interpretation Comments POC glucose (test code 200 mg/dL 65-99 H Opera tor Name: Stein = 15088-4) SnehalDevice ID : [id number] able: [facility] 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 Interpretation Abnormal (test code = 35918-4) [facility] platelet pheresis, 1 Units, Leukoreduced, CMV Negative 2022-06-29 13:44:00 Test Item Value Reference Range Interpretation Comments Product name (test code Platelets Aph LR, Path = 25) Red cont1 Unit number (test code [id number] = 6112829) Product code (test code S0796G80 = 3092) Dispense status (test Transfused code = 24) Blood expiration date (test code = 302) Blood type code (test 5100 code = 308) Blood type (test code = O POSITIVE 1314) Compatibility (test Not required code = 6400) [facility] platelet pheresis, 1 Units, Leukoreduced, CMV Negative 2022-06-29 13:44:00 Test Item Value Reference Range Interpretation Comments Product name (test code Platelets Aph LR, Path = 25) Red cont1 Unit number (test code [id number] = 0653775) Product code (test code C4780E06 = 3092) Dispense status (test Transfused code = 24) Blood expiration date (test code = 302) Blood type code (test 5100 code = 308) Blood type (test code = O POSITIVE 1314) Compatibility (test Not required code = 6400) [facility]rvkhaiuKUTZ-KwO-5 (COVID-19) RNA [Presence] in Respiratory specimen by HELENA with probe mrmvbiyag0720-39-08 01:49:50 Test Item Value Reference Range Interpretation Comments SARS-CoV-2 (COVID-19) RNA Not detected [Presence] in Respiratory specimen by HELENA with probe detection (test code = 39515-8) 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 employed in a Unknown healthcare setting (test code = 36710-8) Whether the patient has symptoms Unknown related to condition of interest (test code = 58004-4) Whether the patient was Unknown hospitalized for condition of interest (test code = 73122-5) Whether the patient was admitted Unknown to intensive care unit (ICU) for condition of interest (test code = 84797-1) Whether patient resides in a Unknown congregate care setting (test code = 68947-9) status (test code = Unknown 86947-2) Date and time of symptom onset Unknown (test code = 07680-0) BROOKE KYLE WESTSpirometry, diffusion, lung erawzce3563-31-49 18:16:50 Test Item Value Reference Range Interpretation [...] ated message] code = 5528) The system [employer] generated this result transmitted ref erence range: [...] Pre (test code = 11.4 g(Hb)/dL 5540) [facility] cxeforl3264-77-67 18:16:50 Test Item Value Reference Range Interpretation Comments VC Pre (test code = 2.90 L 5374) VC Predicted (test 3.16 code = 5372) VC LLN (test code = 2.48 5373) VC % Pre of Predicted 91.8 % (test code = 5375) TLC Pre (test code = 4.35 L 5416) TLC Predicted (test 4.78 code = 5414) TLC LLN (test code = 3.86 5415) TLC % Pre of Predicted 91.0 % (test code = 5417) RV Pre (test code = 1.44 L 5402) RV Predicted (test 1.64 code = 5400) RV LLN (test code = 1.00 5401) RV % Pre of Predicted 88.0 % (test code = 5403) RV % TLC Pre (test 33.20 % code = 5409) RV % TLC Predicted 34 (test code = 5407) RV % TLC LLN (test 23 code = 5408) RV % TLC % Pre of 98.0 % Predicted (test code = 5410) R0.5IN [...] ated message] code = 5528) The system [employer] generated this result transmitted ref erence range: 1/(cmH2O *s). The reference range was not used to interpr et this result as normal/abnormal . sGaw Predicted (test 0.10 code = 5526) sGaw LLN (test code = 0.10 5527) sGaw % Pre of 89.7 % Predicted (test code = 5529) FEV1 Pre (test code = 2.40 L 5348) FEV1 Predicted (test 2.32 code = 5302) FEV1 LLN (test code = 1.75 5347) FEV1 % Pre of 103.5 % Predicted (test code = 5308) FVC Pre (test code = 2.90 L 5354) FVC Predicted (test 2.94 code = 5307) FVC LLN (test code = 2.22 5353) FVC % Pre of Predicted 99.0 % (test code = 5355) FEV1/FVC % Pre (test 82.64 % code = 5361) FEV1/FVC % Predicted 79 (test code = 5359) FEV1/FVC % LLN (test 67 code = 5360) FEV1/FVC % Pre of 104.0 % Predicted (test code = 5362) FEF [...] = 14.37 5422) DLCO % Pre of 102.0 % Predicted (test code = 5424) DLCOc [...] = 5534) KCOc SB % Pre of 121.0 % Predicted (test code = 5536) VA SB Pre (test code = 3.96 L 5444) VA SB Predicted (test 4.39 code = 5442) VA SB LLN (test code = 3.55 5443) VA SB % Pre of 90.1 % Predicted (test code = 5445) Hb Pre (test code = 11.40 g(Hb)/dL 5540) [facility] czqeh3063-31-17 12:09:09 Test Item Value Reference Range Interpretation Comments Interpretation (test code Additional Antibody = 1920629) Information:DP6=DPB1 *06:01/DPA1*01:03 SAB serum ID (test code = [id number] 5866) [facility] serum collection D&T 06/14/2022 12:37 PM (test code = 5867) SAB class I antibody A23, A24, A25, A32, assignment (test code = B38, B49, B51, B57, 5870) B58, B59, B63 SAB cPRA class I (test 52 code = 5868) SAB class II antibody DP6 assignment (test code = 5871) SAB cPRA class II (test 2 code = 5869) Case number (test code = [id number]) Single antigen beads See link below for (test code = 4604) PDF Lab Report [facility] antigen rfyrw2524-78-02 12:09:09 Test Item Value Reference Range Interpretation Comments Interpretation (test code Additional Antibody = 6531615) Information:DP6=DPB1 *06:01/DPA1*01:03 SAB serum ID (test code = [id number] 5866) [facility] serum collection D&T 06/14/2022 12:37 PM (test code = 5867) SAB class I antibody A23, A24, A25, A32, assignment (test code = B38, B49, B51, B57, 5870) B58, B59, B63 SAB cPRA class I (test 52 code = 5868) SAB class II antibody DP6 assignment (test code = 5871) SAB cPRA class II (test 2 code = 5869) Case number (test code = [id number]) Single antigen beads PDF See link below for (test code = 4604) PDF [facility] [id number] 07:59:00 Phosphatidylethanol, 16:0/18:1 (POPEth)<10ng/mL06/16/2022 1:59 AM [facility] LABPhosphatidylethanol, 16:0/18:2 (PLPEth)<10ng/mL06/16/2022 1:59 AM [facility] HospitalPhosphatidylethanol, rbbkv5352-88-50 07:59:00Phosphatidylethanol, 16:0/18:1 (POPEth)<10ng/mL06/16/2022 1:59 AM [facility] REF LABPhosphatidylethanol, 16:0/18:2 (PLPEth)<10ng/mL06/16/2022 1:59 AM [facility] Hospital[facility] 12 cllr9199-74-45 03:36:25 Test Item Value Reference Range Interpretation Comments Ventricular rate (test 53 code = 253) Atrial rate (test code 53 = 255) ME interval (test code 144 = 266) QRSD [...] shortened-Electronical ly Signed By Rich Mercer MD ([id number]) on 06/14/2022 9:36:22 PM [place] [address] uwtf8162-71-11 03:36:25 Test Item Value Reference Range Interpretation Comments Ventricular rate (test 53 code = 253) Atrial rate (test code 53 = 255) ME interval (test code 144 = 266) QRSD [...] shortened-Electronical ly Signed By Rich Mercer MD ([id number]) on 06/14/2022 9:36:22 PM [facility]-CoV-2 (COVID-19) RNA [Presence] in Respiratory specimen by HELENA with probe wszagxfqe8796-08-53 18:27:06 Test Item Value Reference Range Interpretation Comments SARS-CoV-2 (COVID-19) RNA Not detected [Presence] in Respiratory specimen by HELENA with probe detection (test code = 56132-1) 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 employed in a Unknown healthcare setting (test code = 55506-7) Whether the patient has symptoms Unknown related to condition of interest (test code = 03502-6) Whether the patient was Unknown hospitalized for condition of interest (test code = 57254-0) Whether the patient was admitted Unknown to intensive care unit (ICU) for condition of interest (test code = 15453-9) Whether patient resides in a Unknown congregate care setting (test code = 70554-0) status (test code = Unknown 45303-2) Date and time of symptom onset Unknown (test code = 83044-4) [facility] Preliminary Interpretation - Not an Esaui8571-60-50 02:01:22 Test Item Value Reference Range Interpretation Comments SNOW (test code = SNOW) Radha Lin MD 06/15/2022 7:[address] [facility] ED Preliminary Interpretation - Not an OrderPerformed by: Radha Lin MDAuthorized by: Radha Lin MD ECG reviewed by ED Physician in the absence of a extension service advisor: yes Interpretation: Interpretation: abnormal Rate: ECG rate: 75 ECG rate assessment: normal Rhythm: Rhythm: sinus rhythm Ectopy: Ectopy: none QRS: QRS axis: Normal QRS intervals: NormalConduction: Conduction: abnormal Abnormal conduction: complete RBBB ST segments: ST segments: NormalT waves: T waves: normal Lab Interpretation Abnormal (test code = 32424-4) [facility] ED Preliminary Interpretation - Not an Kqjvg9848-35-30 02:01:22 Test Item Value Reference Range Interpretation Comments SNOW (test code = SNOW) Radha Lin MD 06/15/2022 7:[address] [facility] ED Preliminary Interpretation - Not an OrderPerformed by: Radha Lin MDAuthorized by: Radha Lin MD ECG reviewed by ED Physician in the absence of a extension service advisor: yes Interpretation: Interpretation: abnormal Rate: ECG rate: 75 ECG rate assessment: normal Rhythm: Rhythm: sinus rhythm Ectopy: Ectopy: none QRS: QRS axis: Normal QRS intervals: NormalConduction: Conduction: abnormal Abnormal conduction: complete RBBB ST segments: ST segments: NormalT waves: T waves: normal Lab Interpretation Abnormal (test code = 84691-7) [facility] fresh frozen plasma, 1 [id number] 18:35:00 Test Item Value Reference Range Interpretation Comments Product name (test code Thawed Plasma Pheresis = 25) Pt 1 Unit number (test code [id number] = 3542846) Product code (test code L6026L59 = 3092) Dispense status (test Transfused code = 24) Blood expiration date (test code = 302) Blood type code (test 8400 code = 308) Blood type (test code = AB POSITIVE 1314) Compatibility (test Not required code = 6400) [facility] fresh frozen plasma, 1 Pkhbm9243-45-19 18:35:00 Test Item Value Reference Range Interpretation Comments Product name (test code Thawed Plasma Pheresis = 25) Pt 1 Unit number (test code [id number] = 7627823) Product code (test code L5125K17 = 3092) Dispense status (test Transfused code = 24) Blood expiration date (test code = 302) Blood type code (test 8400 code = 308) Blood type (test code = AB POSITIVE 1314) Compatibility (test Not required code = 6400) [facility] RNA [Presence] in Respiratory specimen by HELENA with probe lwqnpmfan2595-98-74 22:34:07 Test Item Value Reference Range Interpretation Comments SARS-CoV-2 (COVID-19) RNA Not detected [Presence] in Respiratory specimen by HELENA with probe detection (test code = 38818-9) 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 employed in a Unknown healthcare setting (test code = 47662-6) Whether the patient has symptoms Unknown related to condition of interest (test code = 05855-1) Whether the patient was Unknown hospitalized for condition of interest (test code = 14700-8) Whether the patient was admitted Unknown to intensive care unit (ICU) for condition of interest (test code = 76724-2) Whether patient resides in a Unknown congregate care setting (test code = 35577-4) status (test code = Unknown 20261-7) Date and time of symptom onset Unknown (test code = 91089-8) [facility] KYLE [facility] RBC, 1 Bpacr5925-30-68 16:55:00 Test Item Value Reference Range Interpretation Comments Product name (test code Red Cells AS1 Leukored = 25) Irrad Unit number (test code [id number] = 2400637) Product code (test code Y4880N57 = 3092) Dispense status (test Transfused code = 24) Blood expiration date (test code = 302) Blood type code (test 8400 code = 308) Blood type (test code = AB POSITIVE 1314) Compatibility (test Compatible code = 6400) [facility] RBC, 1 Jwgeo8041-63-30 16:55:00 Test Item Value Reference Range Interpretation Comments Product name (test code Red Cells AS1 Leukored = 25) Irrad Unit number (test code [id number] = 1717519) Product code (test code C5767M39 = 3092) Dispense status (test Transfused code = 24) Blood expiration date (test code = 302) Blood type code (test 8400 code = 308) Blood type (test code = AB POSITIVE 1314) Compatibility (test Compatible code = 6400) [facility]enza virus A and B uzl0306-26-38 18:42:46 Test Item Value Reference Range Interpretation Comments SARS-CoV-2 (COVID-19) RNA Not detected [Presence] in Respiratory specimen by HELENA with probe detection (test code = 30843-8) Whether patient resides in a No congregate care setting (test code = 31288-6) Date and time of symptom onset Unknown (test code = 69703-9) Whether the patient was No hospitalized for condition of interest (test code = 12792-2) Whether the patient was admitted No to intensive care unit (ICU) for condition of interest (test code = 48960-0) 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 employed in a No healthcare setting (test code = 88316-5) Whether the patient has symptoms No related to condition of interest (test code = 72878-3) status (test code = No 30194-8) [facility] KYLE [facility] with Sjzgttpppnmn6713-53-47 03:42:09 Test Item Value Reference Range Interpretation [...] (test code = 52.8 fL 39.0-49.9 H 18698-3) RDW-CV (test code = 17.0 % 12.0-15.5 H 788-0) PLT (test code = See_Comment L [Automated 777-3) message] The sy stem which generated this result transmitted reference range : 166 - 358 10*3/ ?L. The reference r davi was not used to interpret this result as normal/abnormal . MPV (test code = 9.8 fL 9.5-12.9 22787-2) IPF % (test code = 2.5 % 1.3-7.7 Platelet count [id number]) measured by fluorescence method. NRBC/100 WBC (test See_Comment [Automat ed code = 2155861473) message] The system which generated this result transmitted reference range : 0.0 - 10.0 /100 WBCs. The refer ence range was not u sed to interpret th is result as normal/abnormal . NRBC x10^3 (test code See_Comment [Auto mated = 4353033521) message] The s ystem which generated this result transmitted reference range : 10*3/?L. The reference range was not used to interpret this result as normal/abnormal . GRAN MAT (NEUT) % 63.3 % (test code = 770-8) IMM GRAN % (test code 0.30 % = 5348833516) LYMPH % (test code = 18.7 % 736-9) MONO % (test code = 14.5 % 5905-5) EOS % (test code = 2.6 % 713-8) BASO % (test code = 0.6 % 706-2) GRAN MAT x10^3(ANC) 1.96 10*3/uL 1.88-7.09 (test code = 0465949749) IMM GRAN x10^3 (test 0.00-0.06 code = 7904468904) LYMPH x10^3 (test code 0.58 10*3/uL 1.32-3.29 L = 731-0) MONO x10^3 (test code 0.45 10*3/uL 0.33-0.92 = 742-7) EOS x10^3 (test code = 0.08 10*3/uL 0.03-0.39 711-2) BASO x10^3 (test code 0.01-0.07 = 704-7) BASO STIPPLING (test Present A code = 703-9) PLT ESTIMATE (test Decreased Normal A code = 9317-9) Lab Interpretation Abnormal (test code = 07415-6) [facility] [id number] 03:26:02 Test Item Value Reference Interpretation Comments Range TROPONIN I (test 0.003 ng/mL See_Comment [Automated code = 2518144197) message] The system which generated this result [...] biotin. Lab Interpretation Normal (test code = 01081-6) [facility]MINAL VTO-GTS8819-35-06 03:23:01 Test Item Value Reference Range Interpretation Comments NT-proBNP (test code 36 pg/mL See_Comment [Autom ated = 5862807169) message] The system which generated this result transmitted reference range : <=125. The reference range was not used to interpret this result as normal/abnormal . SNOW (test code = SNOW) Biotin has been reported to cause a negative bias, interpret results relative to patient's use of biotin. Lab Interpretation Normal (test code = 18604-8) [facility] Center[facility] (NA, K, CL, CO2, GLUCOSE, BUN, CREATININE, CA)2022-04-16 03:14:42 Test Item Value Reference Range Interpretation Comments NA (test code = 138 mmol/L 135-145 4110824050) K (test code = 4.8 mmol/L 3.5-5.0 9013947796) CL (test code = 110 mmol/L 98-108 H 5824742251) CO2 TOTAL (test code = 22 mmol/L 23-31 L 3087848677) AGAP (test code = 2-16 5195995964) BUN (test code = 15 mg/dL 7-23 5121322720) GLUCOSE (test code = 90 mg/dL 70-110 6568841491) CREATININE (test code = 0.49 mg/dL 0.50-1.04 L 8745542270) CALCIUM (test code = 7.9 mg/dL 8.6-10.6 L 3109673054) eGFR (test code = mL/min/1.73m2 4116353132) SNOW (test code = SNOW) Association of [...] tests). Lab Interpretation Abnormal (test code = 31060-0) [facility] (ALB, T.PRO, BILI T, BU/BC, ALT, AST, ALK PHOS)2022-04-16 03:14:22 Test Item Value Reference Range Interpretation Comments TOTAL BILI (test code = 1861030998) 1.5 mg/dL 0.1-1.1 H BILI UNCON (test code = 0575833288) 1.2 mg/dL 0.1-1.1 H BILI CONJ (test code = 7590852120) 0.0 mg/dL 0.0-0.3 T PROTEIN (test code = 0783162804) 6.5 g/dL 6.3-8.2 ALBUMIN (test code = 2747096519) 3.4 g/dL 3.5-5.0 L ALK PHOS (test code = 0120960621) 162 U/L 34-122 H ALTv (test code = 1742-6) 50 U/L 5-35 H AST(SGOT) (test code = 7240674143) 64 U/L 13-40 H Lab Interpretation (test code = Abnormal 52111-6) [facility] WITH [id number] 02:57:34 Test Item Value Reference Range Interpretation [...] (test code = 52.2 fL 39.0-49.9 H 52566-0) RDW-CV (test code = 16.7 % 12.0-15.5 H 788-0) PLT (test code = See_Comment L [Automated 777-3) message] The sy stem which generated this result transmitted reference range : 166 - 358 10*3/ ?L. The reference r davi was not used to interpret this result as normal/abnormal . MPV (test code = 11.4 fL 9.5-12.9 29777-4) NRBC/100 WBC (test See_Comment [Automat ed code = 3990712027) message] The system which generated this result transmitted reference range : 0.0 - 10.0 /100 WBCs. The refer ence range was not u sed to interpret th is result as normal/abnormal . NRBC x10^3 (test code See_Comment [Auto mated = 6994412963) message] The s ystem which generated this result transmitted reference range : 10*3/?L. The reference range was not used to interpret this result as normal/abnormal . GRAN MAT (NEUT) % 62.2 % (test code = 770-8) IMM GRAN % (test code 0.80 % = 1448789299) LYMPH % (test code = 20.2 % 736-9) MONO % (test code = 14.7 % 5905-5) EOS % (test code = 1.7 % 713-8) BASO % (test code = 0.4 % 706-2) GRAN MAT x10^3(ANC) 1.48 10*3/uL 1.88-7.09 L (test code = 9448885849) IMM GRAN x10^3 (test 0.00-0.06 code = 5517244448) LYMPH x10^3 (test code 0.48 10*3/uL 1.32-3.29 L = 731-0) MONO x10^3 (test code 0.35 10*3/uL 0.33-0.92 = 742-7) EOS x10^3 (test code = 0.04 10*3/uL 0.03-0.39 711-2) BASO x10^3 (test code 0.01-0.07 = 704-7) PLT ESTIMATE (test Decreased Normal A code = 9317-9) Lab Interpretation Abnormal (test code = 34236-3) [facility] CenterProthrombin Time / [id number] 02:35:10 Test Item Value Reference Range Interpretation Comments PROTIME PATIENT (test See_Comment H [Auto mated message] code = 5964-2) The system [employer] generated this result transmitted ref erence range: 12.0 - 1 4.7 Seconds. The reference range was not used to int erpret this result as normal/abnormal . INR (test code = 6301-6) Nor mal INR <1.1; Warfarin Therap eutic range 2.0 to 3. 0 or 2.5 to 3.5, dep ending upon the indica tions. Lab Interpretation (test Abnormal code = 46775-3) [facility] CenterCOMP. METABOLIC PANEL (95793)2022-04-10 02:34:50 Test Item Value Reference Range Interpretation Comments NA (test code = 140 mmol/L 135-145 3982203991) K (test code = 4.4 mmol/L 3.5-5.0 6579174009) CL (test code = 111 mmol/L 98-108 H 8693935429) CO2 TOTAL (test code = 23 mmol/L 23-31 9141495400) AGAP (test code = 2-16 3143078733) BUN (test code = 13 mg/dL 7-23 6952512832) GLUCOSE (test code = 86 mg/dL 70-110 7330269306) CREATININE (test code = 0.62 mg/dL 0.50-1.04 0881766100) TOTAL BILI (test code = 1.6 mg/dL 0.1-1.1 H 9679970947) CALCIUM (test code = 7.6 mg/dL 8.6-10.6 L 2185166745) T PROTEIN (test code = 6.3 g/dL 6.3-8.2 6249195587) ALBUMIN (test code = 3.3 g/dL 3.5-5.0 L 5975543735) ALK PHOS (test code = 160 U/L 34-122 H 3508593610) ALTv (test code = 46 U/L 5-35 H 1742-6) AST(SGOT) (test code = 58 U/L 13-40 H 8319545851) eGFR (test code = mL/min/1.73m2 5034240757) SNOW (test code = SNOW) Association of [...] tests). Lab Interpretation Abnormal (test code = 04626-0) [facility] CenterMAGNESIUM2022-12-31 02:34:50 Test Item Value Reference Range Interpretation Comments MAGNESIUM (test code = 2174111532) 1.8 mg/dL 1.7-2.4 Lab Interpretation (test code = Normal 59955-0) [facility] CenterCREATINE [id number] 02:34:29 Test Item Value Reference Range Interpretation Comments CK (test code = 8064268192) 105 U/L 33-194 Lab Interpretation (test code = Normal 12229-3) [facility] CenterAMMONIA, [id number] 02:33:54 Test Item Value Reference Range Interpretation Comments AMMONIA (test code = 4306371890) 90 umol/L 9-33 H Lab Interpretation (test code = Abnormal 89199-3) [facility] fxkpezk9153-42-34 09:39:00 Test Item Value Reference Range Interpretation Comments POC glucose (test code = 107 mg/dL 65-99 H Ope rator Name: Aris 64880-4) SaraDevice ID: [id number] able: [facility] 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 Interpretation (test Abnormal code = 30020-1) [facility] mjinwva7488-57-10 09:39:00 Test Item Value Reference Range Interpretation Comments POC glucose (test code = 107 mg/dL 65-99 H Ope rator Name: Aris 93836-4) SaraDevice ID: [id number] able: TM 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 Interpretation (test Abnormal code = 35124-5) [facility] sqyukyc0335-17-89 09:39:00 Test Item Value Reference Range Interpretation Comments POC glucose (test code = 107 mg/dL 65-99 H Ope rator Name: Aris [id number]) SaraDevice ID: [id number] able: TM 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 Interpretation (test Abnormal code = 91012-3) [facility] [id number] 09:39:00 Test Item Value Reference Range Interpretation Comments POC glucose (test code = 107 mg/dL 65-99 H Ope rator Name: Aris [id number]) TiffanyJohnjarodceline ID: [id number] able: TM 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 Interpretation (test Abnormal code = 15422-9) [address]2022-11-18 02:51:50 Test Item Value Reference Range Interpretation Comments Ventricular rate (test code = 253) Atrial rate (test code = 255) ME interval (test code = 266) QRSD interval (test code = 260) QT interval (test code = 264) QTC interval (test code = 265) P axis 1 (test code = 267) QRS axis 1 (test code = 268) T wave axis (test code = 270) EKG impression (test Normal sinus code = 273) rhythm-Right bundle branch block-Abnormal ECG-- [address]2022-11-18 02:51:50 Test Item Value Reference Range Interpretation Comments Ventricular rate (test code = 253) Atrial rate (test code = 255) ME interval (test code = 266) QRSD interval (test code = 260) QT interval (test code = 264) QTC interval (test code = 265) P axis 1 (test code = 267) QRS axis 1 (test code = 268) T wave axis (test code = 270) EKG impression (test Normal sinus code = 273) rhythm-Right bundle branch block-Abnormal ECG-- [address]2022-11-18 02:51:50 Test Item Value Reference Range Interpretation Comments Ventricular rate (test code = 253) Atrial rate (test code = 255) ME interval (test code = 266) QRSD interval (test code = 260) QT interval (test code = 264) QTC interval (test code = 265) P axis 1 (test code = 267) QRS axis 1 (test code = 268) T wave axis (test code = 270) EKG impression (test Normal sinus code = 273) rhythm-Right bundle branch block-Abnormal ECG-- [facility] 12 [id number] 02:51:50 Test Item Value Reference Range Interpretation Comments Ventricular rate (test code = 253) Atrial rate (test code = 255) ME interval (test code = 266) QRSD interval (test code = 260) QT interval (test code = 264) QTC interval (test code = 265) P axis 1 (test code = 267) QRS axis 1 (test code = 268) T wave axis (test code = 270) EKG impression (test Normal sinus code = 273) rhythm-Right bundle branch block-Abnormal ECG-- [facility] ED Preliminary Interpretation - Not an [id number] 20:37:40 Test Item Value Reference Range Interpretation Comments SNOW (test code = SNOW) Stevo Hoskins DO 02/28/2022 12:23 [facility] ED Preliminary Interpretation - Not an OrderPerformed by: Stevo Hoskins DOAuthorized by: Stevo Hoskins DO ECG reviewed by ED Physician in the absence of a extension service advisor: yes Interpretation: Interpretation: abnormal Rate: ECG rate: 70 ECG rate assessment: normal Rhythm: Rhythm: sinus rhythm Ectopy: Ectopy: none QRS: QRS axis: Normal QRS intervals: WideConduction: Conduction: abnormal Abnormal conduction: complete RBBB ST segments: ST segments: NormalT waves: T waves: non-specific Lab Interpretation Abnormal (test code = 57133-7) [facility] ED Preliminary Interpretation - Not an [id number] 20:37:40 Test Item Value Reference Range Interpretation Comments SNOW (test code = SNOW) Stevo Hoskins DO 02/28/2022 12:23 [facility] ED Preliminary Interpretation - Not an OrderPerformed by: Stevo Hoskins DOAuthorized by: Stevo Hoskins DO ECG reviewed by ED Physician in the absence of a extension service advisor: yes Interpretation: Interpretation: abnormal Rate: ECG rate: 70 ECG rate assessment: normal Rhythm: Rhythm: sinus rhythm Ectopy: Ectopy: none QRS: QRS axis: Normal QRS intervals: WideConduction: Conduction: abnormal Abnormal conduction: complete RBBB ST segments: ST segments: NormalT waves: T waves: non-specific Lab Interpretation Abnormal (test code = 95138-4) [facility] Preliminary Interpretation - Not an [id number] 20:37:40 Test Item Value Reference Range Interpretation Comments SNOW (test code = SNOW) Stevo Hoskins DO 02/28/2022 12:23 [facility] ED Preliminary Interpretation - Not an OrderPerformed by: Stevo Hoskins DOAuthorized by: Stevo Hoskins DO ECG reviewed by ED Physician in the absence of a extension service advisor: yes Interpretation: Interpretation: abnormal Rate: ECG rate: 70 ECG rate assessment: normal Rhythm: Rhythm: sinus rhythm Ectopy: Ectopy: none QRS: QRS axis: Normal QRS intervals: WideConduction: Conduction: abnormal Abnormal conduction: complete RBBB ST segments: ST segments: NormalT waves: T waves: non-specific Lab Interpretation Abnormal (test code = 68938-6) [facility] Preliminary Interpretation - Not an [id number] 20:37:40 Test Item Value Reference Range Interpretation Comments SNOW (test code = SNOW) Stevo Hoskins DO 02/28/2022 12:23 [facility] ED Preliminary Interpretation - Not an OrderPerformed by: Stevo Hoskins DOAuthorized by: Stevo Hoskins DO ECG reviewed by ED Physician in the absence of a extension service advisor: yes Interpretation: Interpretation: abnormal Rate: ECG rate: 70 ECG rate assessment: normal Rhythm: Rhythm: sinus rhythm Ectopy: Ectopy: none QRS: QRS axis: Normal QRS intervals: WideConduction: Conduction: abnormal Abnormal conduction: complete RBBB ST segments: ST segments: NormalT waves: T waves: non-specific Lab Interpretation Abnormal (test code = 30643-8) [facility] [Presence] in Respiratory specimen by HELENA with probe [id number] 18:28:31 Test Item Value Reference Range Interpretation Comments SARS-CoV-2 (COVID-19) RNA Not detected [Presence] in Respiratory specimen by HELENA with probe detection (test code = 16835-9) 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 employed in a Unknown healthcare setting (test code = 36395-8) Whether the patient has symptoms Unknown related to condition of interest (test code = 05591-7) Whether the patient was Unknown hospitalized for condition of interest (test code = 68051-2) Whether the patient was admitted Unknown to intensive care unit (ICU) for condition of interest (test code = 29006-7) Whether patient resides in a Unknown congregate care setting (test code = 76459-2) status (test code = Unknown 62708-4) Date and time of symptom onset Unknown (test code = 28279-9) [facility] WITH [id number] 21:35:39 Test Item Value Reference Range Interpretation [...] (test code = 53.7 fL 39.0-49.9 H 91120-5) RDW-CV (test code = 17.0 % 12.0-15.5 H 788-0) PLT (test code = See_Comment L [Automated 777-3) message] The sy stem which generated this result transmitted reference range : 166 - 358 10*3/ ?L. The reference r davi was not used to interpret this result as normal/abnormal . MPV (test code = 9.8 fL 9.5-12.9 90613-7) IPF % (test code = 2.2 % 1.3-7.7 Platelet count 7234273958) measured by fluorescence method. NRBC/100 WBC (test See_Comment [Automat ed code = 5083360465) message] The system which generated this result transmitted reference range : 0.0 - 10.0 /100 WBCs. The refer ence range was not u sed to interpret th is result as normal/abnormal . NRBC x10^3 (test code See_Comment [Auto mated = 1599925364) message] The s ystem which generated this result transmitted reference range : 10*3/?L. The reference range was not used to interpret this result as normal/abnormal . SEG % (test code = 60 % 33-76 32435-3) BAND % (test code = 3 % 0-1 H 09798-9) LYMPH % (test code = 23 % 14-54 23864-0) MONO % (test code = 12 % 0-4 H 52206-9) EOS % (test code = 2 % 0-3 25733-8) ANC (test code = 1.38 10*3/uL 1.88-7.09 L 753-4) PLT ESTIMATE (test Decreased Normal A code = 9317-9) Lab Interpretation Abnormal (test code = 02181-9) [facility] (05744)2022-02-15 20:44:39 Test Item Value Reference Range Interpretation Comments NA (test code = 137 mmol/L 135-145 1671100619) K (test code = 3.8 mmol/L 3.5-5.0 5860638527) CL (test code = 107 mmol/L 98-108 0406789242) CO2 TOTAL (test code = 25 mmol/L 23-31 7906466175) AGAP (test code = 2-16 8799851563) BUN (test code = 11 mg/dL 7-23 6522362777) GLUCOSE (test code = 103 mg/dL 70-110 9238351648) CREATININE (test code = 0.53 mg/dL 0.50-1.04 5322039872) TOTAL BILI (test code = 1.9 mg/dL 0.1-1.1 H 6753067224) CALCIUM (test code = 8.2 mg/dL 8.6-10.6 L 1375616291) T PROTEIN (test code = 6.4 g/dL 6.3-8.2 9842712841) ALBUMIN (test code = 3.4 g/dL 3.5-5.0 L 1834971507) ALK PHOS (test code = 146 U/L 34-122 H 2754115237) ALTv (test code = 40 U/L 5-35 H 1742-6) AST(SGOT) (test code = 52 U/L 13-40 H 9887599919) eGFR (test code = mL/min/1.73m2 3073033159) SNOW (test code = SNOW) Association of [...] tests). Lab Interpretation Abnormal (test code = 17049-0) [facility] 20[facility]44[facility]19 Test Item Value Reference Range Interpretation Comments LIPASE (test code = 8343075561) 298 U/L 0-220 H Lab Interpretation (test code = Abnormal 99794-2) [facility] kxahzim9027-14-77 03:08:00 Test Item Value Reference Range Interpretation Comments Urine culture (test SEE COMMENT Bacteriu bartolo screen code = 1201090) negative. [facility] [id number] 03:08:00 Test Item Value Reference Range Interpretation Comments Urine culture (test SEE COMMENT Bacteriu bartolo screen code = 5297791) negative. [facility] gjscyga1356-23-55 03:08:00 Test Item Value Reference Range Interpretation Comments Urine culture (test SEE COMMENT Bacteriu bartolo screen code = 2816757) negative. [facility] wgjyetq0278-42-48 03:08:00 Test Item Value Reference Range Interpretation Comments Urine culture (test SEE COMMENT Bacteriu bartolo screen code = 1025459) negative. [facility] [Presence] in Respiratory specimen by HELENA with probe vmzhjyqeb6781-49-58 02:16:27 Test Item Value Reference Range Interpretation Comments SARS-CoV-2 (COVID-19) RNA Not detected [Presence] in Respiratory specimen by HELENA with probe detection (test code = 39874-3) 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 employed in a Unknown healthcare setting (test code = 70975-5) Whether the patient has symptoms Unknown related to condition of interest (test code = 50102-0) Whether the patient was Unknown hospitalized for condition of interest (test code = 19490-5) Whether the patient was admitted Unknown to intensive care unit (ICU) for condition of interest (test code = 78575-3) Whether patient resides in a Unknown congregate care setting (test code = 11985-3) status (test code = Unknown 36171-8) Date and time of symptom onset Unknown (test code = 09097-6) [facility] scadgxb5647-63-82 22:22:49 Test Item Value Reference Range Interpretation Comments Case number (test code = [id number]) Surgical pathology See link below for report (test code = PDF Lab Report 2255) Result status (test code This is Final Report = [id number]) for [address] pathology [id number] 22:22:49 Test Item Value Reference Range Interpretation Comments Case number (test code = [id number]) Surgical pathology See link below for report (test code = PDF Lab Report 2255) Result status (test code This is Final Report = 8775737) for [address] pathology [id number] 22:22:49 Test Item Value Reference Range Interpretation Comments Case number (test code = [id number]) Surgical pathology See link below for report (test code = PDF Lab Report 2255) Result status (test code This is Final Report = 6194648) for [address] pathology pieozqh3698-08-94 22:22:49 Test Item Value Reference Range Interpretation Comments Case number (test code = [id number]) Surgical pathology See link below for report (test code = PDF Lab Report 2255) Result status (test code This is Final Report = [id number]) for [address] pathology fgyyhwq7796-08-08 22:22:49 Test Item Value Reference Range Interpretation Comments Case number (test code = [id number]) Surgical pathology See link below for report (test code = PDF Lab Report 2255) Result status (test code This is Final Report = 9453978) for [address] pathology [id number] 22:22:49 Test Item Value Reference Range Interpretation Comments Case number (test code = [id number]) Surgical pathology See link below for report (test code = PDF Lab Report 2255) Result status (test code This is Final Report = 2030632) for [address] pathology [id number] 22:22:49 Test Item Value Reference Range Interpretation Comments Case number (test code = [id number]) Surgical pathology See link below for report (test code = PDF Lab Report 2255) Result status (test code This is Final Report = 1041100) for [id number] [facility] [id number] 17:57:00 Test Item Value Reference Range Interpretation Comments POC glucose (test code = 121 mg/dL 65-99 H Ope rator Name: [id number]) Rustam Elaine vice ID: [id number] able: [facility] 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 Interpretation (test Abnormal code = 32428-3) [facility] phqvmnw4114-73-67 17:57:00 Test Item Value Reference Range Interpretation Comments POC glucose (test code = 121 mg/dL 65-99 H Ope rator Name: 69789-3) Rustam Elaine vice ID: [id number] able: [facility] 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 Interpretation (test Abnormal code = 90575-5) [facility] rridcww6511-03-07 11:53:00 Test Item Value Reference Range Interpretation Comments Urine culture (test SEE COMMENT Bacteriu bartolo screen code = 3593764) negative. [facility] byqnwlc7426-55-31 11:53:00 Test Item Value Reference Range Interpretation Comments Urine culture (test SEE COMMENT Bacteriu bartolo screen code = 0761780) negative. [facility] RNA [Presence] in Respiratory specimen by HELENA with probe uqmgulgft8537-70-55 08:30:51 Test Item Value Reference Range Interpretation Comments SARS-CoV-2 (COVID-19) RNA Not detected [Presence] in Respiratory specimen by HELENA with probe detection (test code = 26229-0) 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 employed in a Unknown healthcare setting (test code = 22677-2) Whether the patient has symptoms Unknown related to condition of interest (test code = 93418-4) Whether the patient was Unknown hospitalized for condition of interest (test code = 62441-2) Whether the patient was admitted Unknown to intensive care unit (ICU) for condition of interest (test code = 12933-5) Whether patient resides in a Unknown congregate care setting (test code = 96087-7) status (test code = Unknown 85024-4) Date and time of symptom onset Unknown (test code = 81880-2) [facility] [id number] 12:19:45 Test Item Value Reference Range Interpretation Comments Ventricular rate (test code = 253) Atrial rate (test code = 255) ME interval (test code = 266) QRSD interval [...] of 26-NOV-2021 19:29,-No significant change was found- [address]2022-09-03 12:19:45 Test Item Value Reference Range Interpretation Comments Ventricular rate (test code = 253) Atrial rate (test code = 255) ME interval (test code = 266) QRSD interval [...] of 26-NOV-2021 19:29,-No significant change was found- [address]2022-09-03 12:19:45 Test Item Value Reference Range Interpretation Comments Ventricular rate (test code = 253) Atrial rate (test code = 255) ME interval (test code = 266) QRSD interval [...] of 26-NOV-2021 19:29,-No significant change was found- [facility] ED Preliminary Interpretation - Not an [id number] 05:33:45 Test Item Value Reference Range Interpretation Comments SNOW (test code = SNOW) Stevo Hoskins DO 12/13/2021 12:[address] [facility] ED Preliminary Interpretation - Not an OrderPerformed by: Stevo Hoskins DOAuthorized by: Stevo Hoskins DO ECG reviewed by ED Physician in the absence of a extension service advisor: yes Previous ECG: Previous ECG: UnavailableInterpretat ion: Interpretation: abnormal Rate: ECG rate: 63 ECG rate assessment: normal Rhythm: Rhythm: sinus rhythm Ectopy: Ectopy: none QRS: QRS axis: Normal QRS intervals: NormalConduction: Conduction: abnormal Abnormal conduction: complete RBBB ST segments: ST segments: NormalT waves: T waves: non-specific Lab Interpretation Abnormal (test code = 19071-1) [facility] ED Preliminary Interpretation - Not an [id number] 05:33:45 Test Item Value Reference Range Interpretation Comments SNOW (test code = SNOW) Stevo Hoskins DO 12/13/2021 12:[address] [facility] ED Preliminary Interpretation - Not an OrderPerformed by: Stevo Hoskins DOAuthorized by: Stevo Hoskins DO ECG reviewed by ED Physician in the absence of a extension service advisor: yes Previous ECG: Previous ECG: UnavailableInterpretat ion: Interpretation: abnormal Rate: ECG rate: 63 ECG rate assessment: normal Rhythm: Rhythm: sinus rhythm Ectopy: Ectopy: none QRS: QRS axis: Normal QRS intervals: NormalConduction: Conduction: abnormal Abnormal conduction: complete RBBB ST segments: ST segments: NormalT waves: T waves: non-specific Lab Interpretation Abnormal (test code = 09508-8) [facility] ED Preliminary Interpretation - Not an [id number] 05:33:45 Test Item Value Reference Range Interpretation Comments SNOW (test code = SNOW) Stevo Hoskins DO 12/13/2021 12:[address] [facility] ED Preliminary Interpretation - Not an OrderPerformed by: Stevo Hoskins DOAuthorized by: Stevo Hoskins DO ECG reviewed by ED Physician in the absence of a extension service advisor: yes Previous ECG: Previous ECG: UnavailableInterpretat ion: Interpretation: abnormal Rate: ECG rate: 63 ECG rate assessment: normal Rhythm: Rhythm: sinus rhythm Ectopy: Ectopy: none QRS: QRS axis: Normal QRS intervals: NormalConduction: Conduction: abnormal Abnormal conduction: complete RBBB ST segments: ST segments: NormalT waves: T waves: non-specific Lab Interpretation Abnormal (test code = 02155-2) [facility] ep[facility]yjc8025[facility] 05:22:00 Test Item Value Reference Range Interpretation Comments Urine culture (test SEE COMMENT Bacteriu bartolo screen code = 9812576) negative. [facility] ZundnuwrZINC-QcN-7 (COVID-19) RNA [Presence] in Respiratory specimen by HELENA with probe mnnlhqwut6187-52-47 02:31:14 Test Item Value Reference Range Interpretation Comments SARS-CoV-2 (COVID-19) RNA Not detected [Presence] in Respiratory specimen by HELENA with probe detection (test code = 16495-5) 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 employed in a Unknown healthcare setting (test code = 51837-2) Whether the patient has symptoms Unknown related to condition of interest (test code = 51050-6) Whether the patient was Unknown hospitalized for condition of interest (test code = 20313-7) Whether the patient was admitted Unknown to intensive care unit (ICU) for condition of interest (test code = 19165-5) Whether patient resides in a Unknown congregate care setting (test code = 42853-7) status (test code = Unknown 49844-7) Date and time of symptom onset Unknown (test code = 90103-8) [facility] 12 [id number] 13:24:41 Test Item Value Reference Range Interpretation Comments Ventricular rate (test code = 253) Atrial rate (test code = 255) ME interval (test code = 266) QRSD interval (test code = 260) QT interval (test code = 264) QTC interval (test code = 265) P axis 1 (test code = 267) QRS axis 1 (test code = 268) T wave axis (test code = 270) EKG impression (test code Normal sinus = 273) rhythm-Right bundle branch block- [facility] ED Preliminary Interpretation - Not an [id number] 00:04:12 Test Item Value Reference Range Interpretation Comments SNOW (test code = SNOW) Jefferson Skelton MD 12/04/2021 11:12 [facility] ED Preliminary Interpretation - Not an OrderPerformed by: Jefferson Skelton MDAuthorized by: Jefferson Skelton MD ECG reviewed by ED Physician in the absence of a extension service advisor: yes Interpretation: Interpretation: abnormal Rate: ECG rate: 70 ECG rate assessment: normal Rhythm: Rhythm: sinus rhythm QRS: QRS axis: Normal QRS intervals: WideConduction: Conduction: abnormal Abnormal conduction: complete RBBB ST segments: ST segments: NormalOther findings: Other findings: prolonged qTc interval Lab Interpretation Abnormal (test code = 32982-8) [facility] tznikzv9463-23-68 02:26:00 Test Item Value Reference Range Interpretation Comments Urine culture (test SEE COMMENT Bacteriu bartolo screen code = 3607991) negative. [facility] PhdkzwqeBFTJ-CrB-2 (COVID-19) RNA [Presence] in Respiratory specimen by HELENA with probe yxwmowqub4268-78-60 00:33:54 Test Item Value Reference Range Interpretation Comments SARS-CoV-2 (COVID-19) RNA Not detected [Presence] in Respiratory specimen by HELENA with probe detection (test code = 02120-3) 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 employed in a Unknown healthcare setting (test code = 56708-3) Whether the patient has symptoms Unknown related to condition of interest (test code = 64398-0) Whether the patient was Unknown hospitalized for condition of interest (test code = 36734-9) Whether the patient was admitted Unknown to intensive care unit (ICU) for condition of interest (test code = 50800-6) Whether patient resides in a Unknown congregate care setting (test code = 40353-2) status (test code = Unknown 19850-5) Date and time of symptom onset Unknown (test code = 09223-7) [facility] CHOUMICCMNXDJTFII1538-04-56 09:34:08 Test Item Value Reference Range Interpretation Comments MAGNESIUM (test code = 9450202215) 1.4 mg/dL 1.7-2.4 L Lab Interpretation (test code = Abnormal 58539-1) [facility]. METABOLIC PANEL (17017)2020-10-03 09:33:48 Test Item Value Reference Range Interpretation Comments NA (test code = 136 mmol/L 135-145 5928037974) K (test code = 3.3 mmol/L 3.5-5.0 L 5200125766) CL (test code = 100 mmol/L 98-108 2210647667) CO2 TOTAL (test code = 33 mmol/L 23-31 H 9900107963) AGAP (test code = 2-16 3187066182) BUN (test code = 3 mg/dL 7-23 L 2364226359) GLUCOSE (test code = 95 mg/dL 70-110 6109874626) CREATININE (test code = 0.47 mg/dL 0.50-1.04 L 7312221786) TOTAL BILI (test code = 1.5 mg/dL 0.1-1.1 H 3064603492) CALCIUM (test code = 8.1 mg/dL 8.6-10.6 L 0767533771) T PROTEIN (test code = 5.9 g/dL 6.3-8.2 L 9043826903) ALBUMIN (test code = 2.9 g/dL 3.5-5.0 L 3376393273) ALK PHOS (test code = 115 U/L 34-122 5481242604) ALTv (test code = 24 U/L 5-35 1742-6) AST(SGOT) (test code = 35 U/L 13-40 0981093244) eGFR (test code = mL/min/1.73m2 5021512153) SNOW (test code = SNOW) Association of [...] tests). Lab Interpretation Abnormal (test code = 13375-6) [facility]:28 Test Item Value Reference Range Interpretation Comments PHOSPHORUS (test code = 4526018793) 2.8 mg/dL 2.5-5.0 Lab Interpretation (test code = Normal 52998-5) [facility] WITH [id number] 09:31:46 Test Item Value Reference Range Interpretation [...] (test code = 53.8 fL 39.0-49.9 H 18676-6) RDW-CV (test code = 19.9 % 12.0-15.5 H 788-0) PLT (test code = See_Comment L [Automated 777-3) message] The sy stem which generated this result transmitted reference range : 166 - 358 10*3/ ?L. The reference r davi was not used to interpret this result as normal/abnormal . MPV (test code = 10.9 fL 9.5-12.9 68316-0) IPF % (test code = 3.6 % 1.3-7.7 Platelet count 0570718418) measured by fluorescence method. NRBC/100 WBC (test See_Comment [Automat ed code = 2448916044) message] The system which generated this result transmitted reference range : 0.0 - 10.0 /100 WBCs. The refer ence range was not u sed to interpret th is result as normal/abnormal . NRBC x10^3 (test code See_Comment [Auto mated = 9489111345) message] The s ystem which generated this result transmitted reference range : 10*3/?L. The reference range was not used to interpret this result as normal/abnormal . GRAN MAT (NEUT) % 68.1 % (test code = 770-8) IMM GRAN % (test code 1.10 % = 3957701241) LYMPH % (test code = 15.5 % 736-9) MONO % (test code = 11.3 % 5905-5) EOS % (test code = 3.4 % 713-8) BASO % (test code = 0.6 % 706-2) GRAN MAT x10^3(ANC) 2.42 10*3/uL 1.88-7.09 (test code = 0710134941) IMM GRAN x10^3 (test 0.04 10*3/uL 0.00-0.06 code = 2411986420) LYMPH x10^3 (test code 0.55 10*3/uL 1.32-3.29 L = 731-0) MONO x10^3 (test code 0.40 10*3/uL 0.33-0.92 = 742-7) EOS x10^3 (test code = 0.12 10*3/uL 0.03-0.39 711-2) BASO x10^3 (test code <0.03 0.01-0.07 = 704-7) Lab Interpretation Abnormal (test code = 82114-4) [facility] WITH [id number] 10:47:09 Test Item Value Reference Range Interpretation [...] (test code = 52.2 fL 39.0-49.9 H 79104-8) RDW-CV (test code = 18.6 % 12.0-15.5 H 788-0) PLT (test code = See_Comment L [Automated 777-3) message] The sy stem which generated this result transmitted reference range : 166 - 358 10*3/ ?L. The reference r davi was not used to interpret this result as normal/abnormal . MPV (test code = 10.1 fL 9.5-12.9 01983-2) IPF % (test code = 3.2 % 1.3-7.7 Platelet count 0477003020) measured by fluorescence method. NRBC/100 WBC (test See_Comment [Automat ed code = 3810397401) message] The system which generated this result transmitted reference range : 0.0 - 10.0 /100 WBCs. The refer ence range was not u sed to interpret th is result as normal/abnormal . NRBC x10^3 (test code See_Comment [Auto mated = 8075754430) message] The s ystem which generated this result transmitted reference range : 10*3/?L. The reference range was not used to interpret this result as normal/abnormal . GRAN MAT (NEUT) % 65.1 % (test code = 770-8) IMM GRAN % (test code 1.20 % = 3700343809) LYMPH % (test code = 16.9 % 736-9) MONO % (test code = 11.5 % 5905-5) EOS % (test code = 4.5 % 713-8) BASO % (test code = 0.8 % 706-2) GRAN MAT x10^3(ANC) 1.58 10*3/uL 1.88-7.09 L (test code = 7275699681) IMM GRAN x10^3 (test 0.03 10*3/uL 0.00-0.06 code = 7185741552) LYMPH x10^3 (test code 0.41 10*3/uL 1.32-3.29 L = 731-0) MONO x10^3 (test code 0.28 10*3/uL 0.33-0.92 L = 742-7) EOS x10^3 (test code = 0.11 10*3/uL 0.03-0.39 711-2) BASO x10^3 (test code <0.03 0.01-0.07 = 704-7) POLYCHROMASIA (test 2+ See_Comment [Automa josemanuel code = 56838-8) message] The system which generated this result transmitted reference range : 2+. The referen ce range was not u sed to interpret th is result as normal/abnormal . LG GRAN LYMPHS (test Rare Rare code = 6494545214) Lab Interpretation Abnormal (test code = 69322-7) [facility]. METABOLIC PANEL (92451)2020-10-02 10:19:28 Test Item Value Reference Range Interpretation Comments NA (test code = 135 mmol/L 135-145 5046638245) K (test code = 3.4 mmol/L 3.5-5.0 L 2956155050) CL (test code = 104 mmol/L 98-108 0556601281) CO2 TOTAL (test code = 27 mmol/L 23-31 2138612152) AGAP (test code = 2-16 2733945899) BUN (test code = 4 mg/dL 7-23 L 2067811646) GLUCOSE (test code = 97 mg/dL 70-110 0052088250) CREATININE (test code = 0.45 mg/dL 0.50-1.04 L 6492311961) TOTAL BILI (test code = 1.7 mg/dL 0.1-1.1 H 8715865002) CALCIUM (test code = 8.2 mg/dL 8.6-10.6 L 2936606032) T PROTEIN (test code = 6.0 g/dL 6.3-8.2 L 3222708738) ALBUMIN (test code = 3.1 g/dL 3.5-5.0 L 3932212442) ALK PHOS (test code = 120 U/L 34-122 2278867656) ALTv (test code = 26 U/L 5-35 1742-6) AST(SGOT) (test code = 39 U/L 13-40 8728824277) eGFR (test code = mL/min/1.73m2 5114445679) SNOW (test code = SNOW) Association of [...] tests). Lab Interpretation Abnormal (test code = 26555-5) [facility] [id number] 02:50:27COVID DMT InterpretationInterpretation/Recommendations: Molecular NAAT Tests for [...] COVID-19 testing the patient has had at [facility], including molecular NAAT testing (more commonly known as PCR testing and Rapid ID Now testing) and antibody testing. It does not take into account any testingthat a patient has had outside of the [facility] medical record. [facility] LABORATORY SERVICESCOVID SdiuxxcHMWQ-TiD-0 NAAT (no units) ? ? Date ? Value ? 02/13/2020 ? Not Detected ? SARS-CoV-2 Rapid ID NOW (no units) ? ? Date ? Value ? 09/29/2020 ? Not Detected ? ? ? 08/10/2019 ? Not Detected ? [facility] LABORATORY SERVICES [facility] WITH [id number] 10:31:29 Test Item Value Reference Range Interpretation [...] (test code = 52.3 fL 39.0-49.9 H 59358-7) RDW-CV (test code = 18.4 % 12.0-15.5 H 788-0) PLT (test code = See_Comment LL [Automated 777-3) message] The sy stem which generated this result transmitted reference range : 166 - 358 10*3/ ?L. The reference r davi was not used to interpret this result as normal/abnormal . MPV (test code = 11.2 fL 9.5-12.9 38788-4) IPF % (test code = 3.9 % 1.3-7.7 Platelet count 9528931506) measured by fluorescence method. NRBC/100 WBC (test See_Comment [Automat ed code = 5247774586) message] The system which generated this result transmitted reference range : 0.0 - 10.0 /100 WBCs. The refer ence range was not u sed to interpret th is result as normal/abnormal . NRBC x10^3 (test code <0.01 See_Comment [Auto mated = 8154988735) message] The s ystem which generated this result transmitted reference range : 10*3/?L. The reference range was not used to interpret this result as normal/abnormal . GRAN MAT (NEUT) % 57.5 % (test code = 770-8) IMM GRAN % (test code 0.50 % = 7675155621) LYMPH % (test code = 20.7 % 736-9) MONO % (test code = 13.3 % 5905-5) EOS % (test code = 6.9 % 713-8) BASO % (test code = 1.1 % 706-2) GRAN MAT x10^3(ANC) 1.08 10*3/uL 1.88-7.09 L (test code = 8173096421) IMM GRAN x10^3 (test <0.03 0.00-0.06 code = 3198445537) LYMPH x10^3 (test code 0.39 10*3/uL 1.32-3.29 L = 731-0) MONO x10^3 (test code 0.25 10*3/uL 0.33-0.92 L = 742-7) EOS x10^3 (test code = 0.13 10*3/uL 0.03-0.39 711-2) BASO x10^3 (test code <0.03 0.01-0.07 = 704-7) BASO STIPPLING (test Present A code = 703-9) ELLIPTO/OVAL (test 2+ See_Comment A [Automat ed code = 46555-6) message] The system which generated this result transmitted reference range : (none). The reference range was not used to interpret this result as normal/abnormal . POLYCHROMASIA (test 2+ See_Comment [Automa josemanuel code = 10828-3) message] The system which generated this result transmitted reference range : 2+. The referen ce range was not u sed to interpret th is result as normal/abnormal . Lab Interpretation Abnormal (test code = 75510-7) [facility]. METABOLIC PANEL (03489)2020-10-01 09:19:22 Test Item Value Reference Range Interpretation Comments NA (test code = 135 mmol/L 135-145 5064359948) K (test code = 4.0 mmol/L 3.5-5.0 9860745112) CL (test code = 107 mmol/L 98-108 9242403527) CO2 TOTAL (test code = 24 mmol/L 23-31 4678782533) AGAP (test code = 2-16 0892065860) BUN (test code = 7 mg/dL 7-23 7109122173) GLUCOSE (test code = 93 mg/dL 70-110 2825505029) CREATININE (test code = 0.47 mg/dL 0.50-1.04 L 5350596950) TOTAL BILI (test code = 1.6 mg/dL 0.1-1.1 H 9483831768) CALCIUM (test code = 8.1 mg/dL 8.6-10.6 L 6758984079) T PROTEIN (test code = 5.8 g/dL 6.3-8.2 L 1780642668) ALBUMIN (test code = 2.8 g/dL 3.5-5.0 L 0494466623) ALK PHOS (test code = 106 U/L 34-122 4156504772) ALTv (test code = 23 U/L 5-35 1742-6) AST(SGOT) (test code = 39 U/L 13-40 3802975312) eGFR (test code = mL/min/1.73m2 7330210640) SNOW (test code = SNOW) Association of [...] tests). Lab Interpretation Abnormal (test code = 97407-9) [facility] CenterKAITLINPRISMA [facility]ITALMEGHANA [id number] 20:47:45 Test Item Value Reference Range Interpretation Comments TROPONIN I (test 0.002 ng/mL See_Comment [Automated code = 0438084306) message] The system which generated this result [...] ? Lab Interpretation Normal (test code = 56160-8) [facility] CenterUR[facility] [id number] 19:11:57 Test Item Value Reference Range Interpretation Comments URINE CULTURE (test code <10,000 CFU/mL = 630-4) Gram-Positive Cocci [facility] CenterFECAL PATHOGENS BY [id number] 18:17:03 Test Item Value Reference Range Interpretation Comments Campylobacter (jejuni, Negative Negative, coli and upsaliensis) Indeterminate, (test code = 16223-9) See comment Plesiomonas shigelloides Negative Negative, (test code = 30822-0) Indeterminate, See comment Salmonella (test code = Negative Negative, 40992-4) Indeterminate, See comment Yersinia enterocolitica Negative Negative, (test code = 06134-1) Indeterminate, See comment Vibrio (test code = Negative Negative, 55801-5) Indeterminate, See comment Vibrio cholerae (test Negative Negative, code = 55183-3) Indeterminate, See comment Enteroaggregative E. Negative Negative, coli (EAEC) (test code = Indeterminate, 53671-5) See comment Enteropathogenic E. coli Negative Negative, N/A, (EPEC) (test code = Indeterminate, 76141-9) See comment Enterotoxigenic E. coli Negative Negative, (ETEC) (test code = Indeterminate, 97682-5) See comment Shiga toxin-Producing E. Negative Negative, coli (STEC) (test code = Indeterminate, 51401-1) See comment Shigella/Enteroinvasive Negative Negative, E. coli (EIEC) (test Indeterminate, code = 90238-9) See comment Cryptosporidium (test Negative Negative, code = 97688-2) Indeterminate, See comment Cyclospora cayetanensis Negative Negative, (test code = 74313-3) Indeterminate, See comment Entamoeba histolytica Negative Negative, (test code = 76903-6) Indeterminate, See comment Giardia lamblia (test Negative Negative, code = 84782-8) Indeterminate, See comment Adenovirus F 40/41 (test Negative Negative, code = 84889-8) Indeterminate, See comment Astrovirus (test code = Negative Negative, 58127-1) Indeterminate, See comment Norovirus GI/GII (test Negative Negative, code = 65584-8) Indeterminate, See comment Rotavirus A (test code = Negative Negative, 68852-7) Indeterminate, See comment Sapovirus (test code = Negative Negative, 28877-5) Indeterminate, See comment Clostridioides Positive Negative, A (Clostridium) difficile Indeterminate, Toxin A/B (test code = See comment 53272-6) SNOW (test code = SNOW) Based on FilmArray GI Panel package insert, the SimfinitArray GI Panel contains a single multiplexed assay [...] the binary toxin gene (CDT), and the cdmuzk-xvsw-zxuo deletion at nucleotide 117 within the gene [...] organism. Lab Interpretation (test Abnormal code = 25339-3) [facility] ([facility]) [id number] 14:26:32 Test Item Value Reference Range Interpretation Comments Occult (guaiac) Blood (test code = Negative Negative 5-8) Lab Interpretation (test code = Normal 20545-0) [facility] CenterCB WITH [id number] 13:54:12 Test Item Value Reference Range Interpretation [...] (test code = 52.9 fL 39.0-49.9 H 50896-7) RDW-CV (test code = 18.3 % 12.0-15.5 H 788-0) PLT (test code = See_Comment LL [Automated 777-3) message] The sy stem which generated this result transmitted reference range : 166 - 358 10*3/ ?L. The reference r davi was not used to interpret this result as normal/abnormal . MPV (test code = 10.8 fL 9.5-12.9 21535-1) IPF % (test code = 4.2 % 1.3-7.7 Platelet count 6015854678) measured by fluorescence method. NRBC/100 WBC (test See_Comment [Automat ed code = 0042278010) message] The system which generated this result transmitted reference range : 0.0 - 10.0 /100 WBCs. The refer ence range was not u sed to interpret th is result as normal/abnormal . NRBC x10^3 (test code <0.01 See_Comment [Auto mated = 2120233736) message] The s ystem which generated this result transmitted reference range : 10*3/?L. The reference range was not used to interpret this result as normal/abnormal . GRAN MAT (NEUT) % 60.0 % (test code = 770-8) IMM GRAN % (test code 0.40 % = 3582900782) LYMPH % (test code = 20.6 % 736-9) MONO % (test code = 11.3 % 5905-5) EOS % (test code = 6.9 % 713-8) BASO % (test code = 0.8 % 706-2) GRAN MAT x10^3(ANC) 1.49 10*3/uL 1.88-7.09 L (test code = 6393026719) IMM GRAN x10^3 (test <0.03 0.00-0.06 code = 8631188075) LYMPH x10^3 (test code 0.51 10*3/uL 1.32-3.29 L = 731-0) MONO x10^3 (test code 0.28 10*3/uL 0.33-0.92 L = 742-7) EOS x10^3 (test code = 0.17 10*3/uL 0.03-0.39 711-2) BASO x10^3 (test code <0.03 0.01-0.07 = 704-7) Lab Interpretation Abnormal (test code = 31957-5) [facility] CenterCOMP. METABOLIC PANEL (16697)2020-09-30 12:47:49 Test Item Value Reference Range Interpretation Comments NA (test code = 135 mmol/L 135-145 3312237819) K (test code = 4.0 mmol/L 3.5-5.0 8994728629) CL (test code = 108 mmol/L 98-108 0916384964) CO2 TOTAL (test code = 23 mmol/L 23-31 5771859042) AGAP (test code = 2-16 8290764329) BUN (test code = 8 mg/dL 7-23 4590755075) GLUCOSE (test code = 109 mg/dL 70-110 5635589863) CREATININE (test code = 0.52 mg/dL 0.50-1.04 9389135483) TOTAL BILI (test code = 1.7 mg/dL 0.1-1.1 H 9801877302) CALCIUM (test code = 8.0 mg/dL 8.6-10.6 L 5074768730) T PROTEIN (test code = 5.7 g/dL 6.3-8.2 L 4769306412) ALBUMIN (test code = 2.7 g/dL 3.5-5.0 L 7024210854) ALK PHOS (test code = 106 U/L 34-122 6973231312) ALTv (test code = 22 U/L 5-35 1742-6) AST(SGOT) (test code = 34 U/L 13-40 0694915786) eGFR (test code = mL/min/1.73m2 2323777308) SNOW (test code = SNOW) Association of [...] tests). Lab Interpretation Abnormal (test code = 76545-1) [facility] CenterFECAL [id number] 11:49:39 Test Item Value Reference Range Interpretation Comments Fecal Leukocytes (test code = Positive Negative A 3061859076) Lab Interpretation (test code = Abnormal 30125-8) [facility] CenterN-TERMINAL [id number] 10:20:53 Test Item Value Reference Range Interpretation Comments NT-proBNP (test code 68 pg/mL See_Comment [Autom ated = 4579409270) message] The system which generated this result transmitted reference range : <=125. The reference range was not used to interpret this result as normal/abnormal . SNOW (test code = SNOW) Biotin has been reported to cause a negative bias, interpret results relative to patient's use of biotin. Lab Interpretation Normal (test code = 80177-2) [facility] CenterCLOSTRIDIUM DIFFICILE [id number] 05:18:16 Test Item Value Reference Range Interpretation Comments Clostridioides (Clostridium) Negative Negative difficile (test code = 05535-2) Lab Interpretation (test code = Normal 67829-6) [facility] CenterPONM GLUCOSE (AUTOMATED)2020-09-30 00:54:42 Test Item Value Reference Range Interpretation Comments POCT GLU (test code = 2396947296) 111 mg/dL 70-110 H Lab Interpretation (test code = Abnormal 20317-1) [facility] CenterBASIC METABOLIC PANEL (NA, K, CL, CO2, GLUCOSE, BUN, CREATININE, CA)2020-09-29 22:08:22 Test Item Value Reference Range Interpretation Comments NA (test code = 135 mmol/L 135-145 9127113136) K (test code = 3.7 mmol/L 3.5-5.0 1193756671) CL (test code = 108 mmol/L 98-108 6168696195) CO2 TOTAL (test code = 22 mmol/L 23-31 L 2795460847) AGAP (test code = 2-16 6888828988) BUN (test code = 9 mg/dL 7-23 6709817339) GLUCOSE (test code = 104 mg/dL 70-110 2308372688) CREATININE (test code = 0.51 mg/dL 0.50-1.04 3977758136) CALCIUM (test code = 7.9 mg/dL 8.6-10.6 L 1997710142) eGFR (test code = mL/min/1.73m2 1728985965) SNOW (test code = SNOW) Association of [...] tests). Lab Interpretation Abnormal (test code = 50667-6) [facility] CenterHEMOGLOBIN2021-06-21 21:41:20 Test Item Value Reference Range Interpretation Comments HGB (test code = 718-7) 7.4 g/dL 11.6-15.0 L Lab Interpretation (test code = Abnormal 94507-9) [facility] CenterVITAMIN B12, [id number] 20:39:52 Test Item Value Reference Range Interpretation Comments VIT B12 (test code = 212 pg/mL 240-930 L 6101838412) SNOW (test code = SNOW) Biotin has been reported to cause a positive bias, interpret results relative to patient's use of biotin. 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.[facility] CenterC-REACTIVE [id number] 17:01:56 Test Item Value Reference Range Interpretation Comments CRP (test code = 3951334943) 4.7 mg/dL <0.8 H Lab Interpretation (test code = Abnormal 24821-5) [facility] CenterVITAMIN D, [id number] 16:43:29 Test Item Value Reference Range Interpretation Comments VIT D 25OH (test code = <13 25-80 L 29010-7) SNOW (test code = SNOW) Deficiency: <20 ng/mLInsufficiency: 20-24 ng/mLOptimal: 25-80 ng/mL Lab Interpretation (test Abnormal code = 81437-5) [facility] CenterPROCALCITONIN2021-06-21 16:15:30 Test Item Value Reference Range Interpretation Comments Procalcitonin (test 0.08 ng/mL <0.07 H code = 1640483116) SNOW (test code = SNOW) INTERPRETATION OF [...] lung abscess/empyema. For further information please refer to:[email or web address] Lab Interpretation Abnormal (test code = 08604-4) [facility] CenterOSMOLALITY [id number] 15:35:14 Test Item Value Reference Range Interpretation Comments OSMO U (test code = See_Comment [Automa josemanuel message] 2923218349) The system [employer] generated this result transmitted ref erence range: 50-1,100 mOsm/kg. The re ference range was not u sed to interpret this result as normal/abnor mal. Lab Interpretation (test Normal code = 66052-3) [facility] CenterTROPONIN [id number] 14:04:56 Test Item Value Reference Range Interpretation Comments TROPONIN I (test 0.002 ng/mL See_Comment [Automated code = 4965201147) message] The system which generated this result [...] ? Lab Interpretation Normal (test code = 01856-2) [facility] CenterCT ABDOMEN PELVIS W [id number] 13:37:17 1. ?Findings concerning for infectious or [...] reviewed this study and agree with theabove report.[facility] WITH [id number] 11:41:25 Test Item Value Reference Range Interpretation Comments WBC (test code = See_Comment L [Automated 9090-2) message] The system which generated this result [...] (test code = 52.4 fL 39.0-49.9 H 73328-5) RDW-CV (test code = 18.2 % 12.0-15.5 H 788-0) PLT (test code = See_Comment LL [Automated 777-3) message] The system which generated this result transmit josemanuel reference range : 166 - 358 10*3/ ?L. The reference range was not u sed to interpret th is result as normal/abnormal . MPV (test code = Not Measure d 16124-1) IPF % (test code = 4.3 % 1.3-7.7 Platelet count 9960448145) measured by fluorescence method. NRBC/100 WBC (test See_Comment [Automat ed code = 6794718310) message] The system which generated this result transmit josemanuel reference range : 0.0 - 10.0 /100 WBCs. The reference range was not used to interpret this result as normal/abnormal . NRBC x10^3 (test code <0.01 See_Comment [Auto mated = 7040095319) message] The system which generated this result transmit josemanuel reference range : 10*3/?L. The reference range was not used to interpret this result as normal/abnormal . GRAN MAT (NEUT) % 74.4 % (test code = 770-8) IMM GRAN % (test code 0.50 % = 2694196524) LYMPH % (test code = 10.3 % 736-9) MONO % (test code = 12.3 % 5905-5) EOS % (test code = 2.0 % 713-8) BASO % (test code = 0.5 % 706-2) GRAN MAT x10^3(ANC) 3.02 10*3/uL 1.88-7.09 (test code = 7091666718) IMM GRAN x10^3 (test <0.03 0.00-0.06 code = 6770535663) LYMPH x10^3 (test 0.42 10*3/uL 1.32-3.29 L code = 731-0) MONO x10^3 (test code 0.50 10*3/uL 0.33-0.92 = 742-7) EOS x10^3 (test code 0.08 10*3/uL 0.03-0.39 = 711-2) BASO x10^3 (test code <0.03 0.01-0.07 = 704-7) PLT ESTIMATE (test Decreased Normal A code = 9317-9) SNOW (test code = SNOW) CBC smear reduced platelet Lab Interpretation Abnormal (test code = 56259-9) [facility] CenterN-TERMINAL [id number] 11:07:24 Test Item Value Reference Range Interpretation Comments NT-proBNP (test code 79 pg/mL See_Comment [Autom ated = 9044669276) message] The system which generated this result transmitted reference range : <=125. The reference range was not used to interpret this result as normal/abnormal . SNOW (test code = SNOW) Biotin has been reported to cause a negative bias, interpret results relative to patient's use of biotin. Lab Interpretation Normal (test code = 02386-6) [facility] CenterIRON [id number] 11:04:41 Test Item Value Reference Range Interpretation Comments IRON (test code = 2338459248) 31 ug/dL 50-160 L TIBC (test code = 6830404847) 295 ug/dL 250-410 % FE SAT (test code = 0947742673) 11 % 20-50 L Lab Interpretation (test code = Abnormal 59784-3) [facility] CenterPROTEIN CREAT RATIO URINE [id number] 10:57:19 Test Item Value Reference Range Interpretation Comments T. PROT U (test code = 2888-6) 9 mg/dL CREAT U (test code = 3247080098) 187.5 mg/dL Protein/Creatinine Ratio Urine 0.0-2.0 (test code = 2315258661) [facility] CenterSODIUM, URINE [id number] 10:53:21 Test Item Value Reference Range Interpretation Comments NA URINE (test code = 0866477732) 30 mmol/L [facility] CenterSEDIMENTATION [id number] 10:33:04 Test Item Value Reference Range Interpretation Comments ESR (test code = See_Comment [Automated message] 6081733960) The system [employer] generated this result transmitted ref erence range: 0 - 20 m m/HR. The reference r davi was not used to interpret this result as normal/abnor mal. Lab Interpretation (test Normal code = 02401-5) [facility] CenterPROTHROMBIN TIME / [id number] 09:43:39 Test Item Value Reference Range Interpretation Comments PROTIME PATIENT (test See_Comment H [Auto mated message] code = 5964-2) The system [employer] generated this result transmitted ref erence range: 12.0 - 1 4.7 Seconds. The reference range was not used to int erpret this result as normal/abnormal . INR (test code = 6301-6) Nor mal INR <1.1; Warfarin Therap eutic range 2.0 to 3. 0 or 2.5 to 3.5, dep ending upon the indica tions. Lab Interpretation (test Abnormal code = 21577-3) [facility] CenterLactic Acid Whole [id number] 08:42:38 Test Item Value Reference Range Interpretation Comments LACTIC ACID (test code = 1.47 mmol/L 0.50-2.20 1326854550) Lab Interpretation (test code = Normal 11255-1) [facility] CenterFERRITIN [id number] 07:31:09 Test Item Value Reference Range Interpretation Comments FERRITIN (test code = 12.2 ng/mL 11.0-264.0 9471702717) SNOW (test code = SNOW) Biotin has been reported to cause a negative bias, interpret results relative to patient's use of biotin. Lab Interpretation (test Normal code = 93381-2) [facility] CenterTHYROID STIMULATING [id number] 07:27:08 Test Item Value Reference Range Interpretation Comments TSH (test code = See_Comment [Automated message] 6920685658) The system whic h generated this result transmitted ref erence range: 0.45 - 4 .70 mIU/L. The refe rence range was not u sed to interpret this result as normal/abnor mal. Lab Interpretation (test Normal code = 15607-4) [facility] CenterGLYCOSYLATED HEMOGLOBIN (A1C)2020-09-29 07:05:40 Test Item Value Reference Range Interpretation Comments HGB A1C (test code = 5.0 % 4.0-5.7 4548-4) SNOW (test code = SNOW) Reference RangesNormal: <5.7%Prediabetes: 5.7 - 6.4%Diabetes: > 6.5% Lab Interpretation (test Normal code = 70381-8) [facility] CenterURIC [id number] 07:05:35 Test Item Value Reference Range Interpretation Comments URIC ACID (test code = 1018878514) 4.2 mg/dL 2.9-6.0 Lab Interpretation (test code = Normal 66498-9) [facility] CenterCREATINE [id number] 07:05:30 Test Item Value Reference Range Interpretation Comments CK (test code = 2824643856) 192 U/L 33-194 Lab Interpretation (test code = Normal 85331-4) [facility] [id number] 07:05:30 Test Item Value Reference Range Interpretation Comments NT-proBNP (test code 94 pg/mL See_Comment [Autom ated = 0610202452) message] The system which generated this result transmitted reference range : <=125. The reference range was not used to interpret this result as normal/abnormal . SNOW (test code = SNOW) Biotin has been reported to cause a negative bias, interpret results relative to patient's use of biotin. Lab Interpretation Normal (test code = 75166-9) [facility]MAG[facility]IUM2021-[facility] 07:04:24 Test Item Value Reference Range Interpretation Comments MAGNESIUM (test code = 7300925825) 1.8 mg/dL 1.7-2.4 Lab Interpretation (test code = Normal 03153-7) [facility]PHOS[facility]ORUS2021-[facility]-21 07:03:39 Test Item Value Reference Range Interpretation Comments PHOSPHORUS (test code = 2493817406) 2.2 mg/dL 2.5-5.0 L Lab Interpretation (test code = Abnormal 03159-0) [facility] CenterLIPID PANEL (92014)(TOTAL CHOLESTEROL, TRIGLYCERIDES, HDL)2020-09-29 06:56:06 Test Item Value Reference Range Interpretation Comments CHOL (test code = 132 mg/dL 120-200 1839599845) HDL (test code = 41 mg/dL >50 L 8961066290) HDLC RATIO (test code = See_Comment [Au tomated message] 3516258651) The system [employer] generated this result transmit josemanuel reference range : <=4.5. The refe rence range was not u sed to interpret th is result as normal/abnormal . TRIG (test code = 73 mg/dL 30-170 3628915100) LDL CHOL (test code = 76 mg/dL See_Comment [Auto mated message] 73499-9) The system [employer] generated this result transmit josemanuel reference range : <=160. The refe rence range was not u sed to interpret th is result as normal/abnormal . VLDL (test code = 15 mg/dL 5-60 1900197662) Lab Interpretation (test Abnormal code = 63297-6) [facility] CenterCOVID[facility] (ID NOW RAPID TESTING)2020-09-29 06:24:26 Test Item Value Reference Range Interpretation Comments SARS-CoV-2 Rapid ID NOW Not Detected Not Detected (test code = 04874-9) SNOW (test code = SNOW) ID NOW COVID-19 Assay is an isothermal nucleic acid amplification test intended for the qualitative detection of nucleic acid from SARS-CoV-2 viral RNA in nasopharyngeal (SLIP BRIDGE OPERATOR) specimens. It is used under Emergency [...] indicated. Lab Interpretation Normal (test code = 83332-2) [facility] CenterURINALYSIS2021-[facility]-21 04:43:31 Test Item Value Reference Range Interpretation Comments APPEARANCE (test code = Clear Clear 5275739460) COLOR (test code = Rosanne Yellow A 6879699030) PH (test code = 4.8-8.0 4240076655) SP GRAVITY (test code = 1.003-1.030 9833953692) GLU U QUAL (test code = Normal Normal 0940157807) BLOOD (test code = Negative Negative 9769644789) KETONES (test code = Negative Negative 8882634695) PROTEIN (test code = 30 mg/dL Negative A 2887-8) UROBILIN (test code = Normal Normal 8530140340) BILIRUBIN (test code = Negative Negative 6143428307) NITRITE (test code = Negative Negative 7679906596) LEUK RANULFO (test code = 25/uL Negative A 0006865173) RBC/HPF (test code = See_Comment [Autom ated message] 2895298945) The system [employer] generated this result transmitted ref erence range: 0 - 3 HP F. The reference range was not used to int erpret this result as normal/abnormal . WBC/HPF (test code = See_Comment [Autom ated message] 3438886524) The system [employer] generated this result transmitted ref erence range: 0 - 5 HP F. The reference range was not used to int erpret this result as normal/abnormal . BACTERIA (test code = Few Negative A 5231103779) MUCOUS (test code = Moderate Negative LPF A 4696041009) SQ EPITH (test code = HPF 2573260304) Lab Interpretation (test Abnormal code = 05504-9) [facility] CenterCBC WITH [id number] 04:39:35 Test Item Value Reference Range Interpretation Comments WBC (test code = See_Comment [Automated 7090-2) message] The system which generated this result [...] (test code = 51.3 fL 39.0-49.9 H 42518-6) RDW-CV (test code = 18.1 % 12.0-15.5 H 788-0) PLT (test code = See_Comment L [Automated 777-3) message] The system which generated this result transmit josemanuel reference range : 166 - 358 10*3/ ?L. The reference range was not u sed to interpret th is result as normal/abnormal . MPV (test code = 11.1 fL 9.5-12.9 53047-6) IPF % (test code = 3.7 % 1.3-7.7 Platelet count 9782786828) measured by fluorescence method. NRBC/100 WBC (test See_Comment [Automat ed code = 4449708553) message] The system which generated this result transmit josemaneul reference range : 0.0 - 10.0 /100 WBCs. The reference range was not used to interpret this result as normal/abnormal . NRBC x10^3 (test code <0.01 See_Comment [Auto mated = 6221063389) message] The system which generated this result transmit josemanuel reference range : 10*3/?L. The reference range was not used to interpret this result as normal/abnormal . GRAN MAT (NEUT) % 76.4 % (test code = 770-8) IMM GRAN % (test code 0.80 % = 9542715024) LYMPH % (test code = 9.4 % 736-9) MONO % (test code = 11.3 % 5905-5) EOS % (test code = 1.5 % 713-8) BASO % (test code = 0.6 % 706-2) GRAN MAT x10^3(ANC) 4.07 10*3/uL 1.88-7.09 (test code = 3471374081) IMM GRAN x10^3 (test 0.04 10*3/uL 0.00-0.06 code = 7143959010) LYMPH x10^3 (test 0.50 10*3/uL 1.32-3.29 L code = 731-0) MONO x10^3 (test code 0.60 10*3/uL 0.33-0.92 = 742-7) EOS x10^3 (test code 0.08 10*3/uL 0.03-0.39 = 711-2) BASO x10^3 (test code 0.03 10*3/uL 0.01-0.07 = 704-7) PLT ESTIMATE (test Decreased Normal A code = 9317-9) SONW (test code = SNOW) Juan slide adgrees to decreased Platelet Lab Interpretation Abnormal (test code = 57571-5) [facility]. METABOLIC PANEL (40702)2020-09-29 04:25:42 Test Item Value Reference Range Interpretation Comments NA (test code = 134 mmol/L 135-145 L 9660325713) K (test code = 3.2 mmol/L 3.5-5.0 L 5754299352) CL (test code = 104 mmol/L 98-108 9411271312) CO2 TOTAL (test code = 24 mmol/L 23-31 8672371415) AGAP (test code = 2-16 0054350465) BUN (test code = 8 mg/dL 7-23 6285768087) GLUCOSE (test code = 105 mg/dL 70-110 7134459787) CREATININE (test code = 0.51 mg/dL 0.50-1.04 4212056816) TOTAL BILI (test code = 2.5 mg/dL 0.1-1.1 H 9867143573) CALCIUM (test code = 8.2 mg/dL 8.6-10.6 L 6888055478) T PROTEIN (test code = 6.3 g/dL 6.3-8.2 9775443663) ALBUMIN (test code = 3.1 g/dL 3.5-5.0 L 1328558568) ALK PHOS (test code = 136 U/L 34-122 H 6852693005) ALTv (test code = 24 U/L 5-35 1742-6) AST(SGOT) (test code = 30 U/L 13-40 6177394214) eGFR (test code = mL/min/1.73m2 9229908737) SNOW (test code = SNOW) Association of [...] tests). Lab Interpretation Abnormal (test code = 40932-2) [facility] CenterLIPASE2021-[facility] 04:25:42 Test Item Value Reference Range Interpretation Comments LIPASE (test code = 3220802445) 102 U/L 0-220 Lab Interpretation (test code = Normal 49792-1) [facility] CenterSARS-CoV-2 (COVID-19) RNA [Presence] in Respiratory specimen by HELENA with probe [id number] 00:49:19 Test Item Value Reference Range Interpretation Comments SARS-CoV-2 (COVID-19) RNA Not detected Not-Detected [Presence] in Respiratory specimen by HELENA with probe detection (test code = 71400-3) 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 employed in a healthcare setting (test code = 56718-2) Whether the patient has symptoms related to condition of interest (test code = 76216-5) Patient was hospitalized because of this condition (test code = 16231-7) Whether the patient was admitted to intensive care unit (ICU) for condition of interest (test code = 20703-7) Whether patient resides in a congregate care setting (test code = 24909-3) [facility]-CoV-2 (COVID-19) RNA [Presence] in Respiratory specimen by HELENA with probe [id number] 02:47:43 Test Item Value Reference Range Interpretation Comments SARS-CoV-2 (COVID-19) RNA Not detected Not-Detected [Presence] in Respiratory specimen by HELENA with probe detection (test code = 46469-8) [facility]-CoV-2 (COVID-19) RNA [Presence] in Respiratory specimen by HELENA with probe [id number] 16:32:37 Test Item Value Reference Range Interpretation Comments SARS-CoV-2 (COVID-19) RNA Not detected Not-Detected [Presence] in Respiratory specimen by HELENA with probe detection (test code = 02467-2) [facility] [facility]-CoV-2 (COVID-19) RNA [Presence] in Respiratory specimen by HELENA with probe [id number] 05:29:57 Test Item Value Reference Range Interpretation Comments SARS-CoV-2 (COVID-19) RNA Not detected Not-Detected [Presence] in Respiratory specimen by HELENA with probe detection (test code = 93267-0) [facility] ABDOMEN PELVIS W [id number] 19:27:49 1. ?No evidence of small bowel obstruction. 2. 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 3. Nonspecific mesenteric inflammation in the pericecal region with changesof prior appendectomy. There is no associated wall thickening in theadjacent bowel. This could be infectious and appears similar on the priorstudy. Preliminary Report Dictated by Resident: Frandy Denise ?Michael, MD., have reviewed this study and agree [...] reviewed this study and agree with the abovereport.[facility] WITH [id number] 11:56:00 Test Item Value Reference Range Interpretation Comments WBC (test code = See_Comment L [Automated 6090-2) message] The sy stem which generated this [...] (test code = 58.0 fL 39-49.9 H 79412-1) RDW-CV (test code = 16.6 % 12-15.5 H 788-0) PLT (test code = See_Comment LL [Automated 777-3) message] The sy stem which generated this result transmitted reference range : 166 - 358 10*3/ ?L. The reference r davi was not used to interpret this result as normal/abnormal . MPV (test code = 11.0 fL 9.5-12.9 25604-1) IPF % (test code = 5.5 % 1.3-7.7 Platelet count 9893640344) measured by fluorescence method. NRBC/100 WBC (test See_Comment [Automat ed code = 9082888269) message] The system which generated this result transmitted reference range : 0.0 - 10.0 /100 WBCs. The refer ence range was not u sed to interpret th is result as normal/abnormal . NRBC x10^3 (test code <0.01 See_Comment [Auto mated = 2109254065) message] The s ystem which generated this result transmitted reference range : 10*3/?L. The reference range was not used to interpret this result as normal/abnormal . GRAN MAT (NEUT) % 57.6 % (test code = 770-8) IMM GRAN % (test code 0.00 % = 6644200419) LYMPH % (test code = 27.1 % 736-9) MONO % (test code = 11.8 % 5905-5) EOS % (test code = 3.1 % 713-8) BASO % (test code = 0.4 % 706-2) GRAN MAT x10^3(ANC) 1.47 10*3/uL 1.88-7.09 L (test code = 2252361441) IMM GRAN x10^3 (test <0.03 0-0.06 code = 0482875367) LYMPH x10^3 (test code 0.69 10*3/uL 1.32-3.29 L = 731-0) MONO x10^3 (test code 0.30 10*3/uL 0.33-0.92 L = 742-7) EOS x10^3 (test code = 0.08 10*3/uL 0.03-0.39 711-2) BASO x10^3 (test code <0.03 0.01-0.07 = 704-7) Lab Interpretation Abnormal (test code = 65100-7) [facility] CenterCOMP. METABOLIC PANEL (13172)2019-08-11 10:42:00 Test Item Value Reference Range Interpretation Comments NA (test code = 138 mmol/L 135-145 6806531064) K (test code = 3.8 mmol/L 3.5-5 9357164101) CL (test code = 108 mmol/L 98-108 2353812097) CO2 TOTAL (test code = 24 mmol/L 23-31 3153296555) AGAP (test code = 2-16 6921378014) BUN (test code = 10 mg/dL 7-23 3501711834) GLUCOSE (test code = 108 mg/dL 70-110 3974718495) CREATININE (test code = 0.43 mg/dL 0.5-1.04 L 6229390470) TOTAL BILI (test code = 2.5 mg/dL 0.1-1.1 H 4798446860) CALCIUM (test code = 8.4 mg/dL 8.6-10.6 L 0417027552) T PROTEIN (test code = 6.1 g/dL 6.3-8.2 L 3880261670) ALBUMIN (test code = 3.1 g/dL 3.5-5 L 1435460432) ALK PHOS (test code = 102 U/L 34-122 6291595436) ALTv (test code = 52 U/L 5-35 H 1742-6) AST(SGOT) (test code = 63 U/L 13-40 H 8080801988) eGFR Calculation mL/min/1.73m2 (Non-) (test code = 9190557490) eGFR Calculation mL/min/1.73m2 () (test code = 6411346787) SNOW (test code = SNOW) Association of [...] tests). Lab Interpretation Abnormal (test code = 93661-6) [facility] CenterXR SMALL BOWEL [id number] 02:08:11 1. ?No bowel obstruction. No fluoroscopic images or fluoroscopic time. RL 6200 HISTORY: ?Abdominal pain COMPARISON: ?None FINDINGS: There is a nonobstructive bowel gas pattern. Contrast is seen throughoutthe entire small bowel and colon. No dilated loops of bowel demonstrated. [facility], Radiant Results Inft User - 08/10/2019 9:09 PM CDTHISTORY: Abdominal painCOMPARISON: NoneFINDINGS:There is a nonobstructive bowel gas pattern. Contrast is seen throughoutthe entire small bowel and colon. No dilated loops of bowel demonstrated.IMPRESSION1. No bowel obstruction.No fluoroscopic images or fluoroscopic time.RL 6200 [facility] TempleSEDIMENTATION [id number] 16:19:00 Test Item Value Reference Range Interpretation Comments ESR (test code = See_Comment [Automated message] 7759535373) The system [employer] generated this result transmitted ref erence range: 0 - 20 m m/HR. The reference r davi was not used to interpret this result as normal/abnor mal. Lab Interpretation (test Normal code = 02858-2) [facility] CenterAbdominal 1 View - To [...] reviewed this study and agree with the abovereport.[facility] WITH [id number] 13:48:00 Test Item Value Reference Range Interpretation [...] (test code = 58.4 fL 39-49.9 H 28210-6) RDW-CV (test code = 16.7 % 12-15.5 H 788-0) PLT (test code = See_Comment LL [Automated 777-3) message] The system which generated this result transmit josemanuel reference range : 166 - 358 10*3/ ?L. The reference range was not u sed to interpret th is result as normal/abnormal . MPV (test code = 10.5 fL 9.5-12.9 73407-4) IPF % (test code = 3.0 % 1.3-7.7 Platelet count 1811247402) measured by fluorescence method. NRBC/100 WBC (test See_Comment [Automat ed code = 3736817791) message] The system which generated this result transmit josemanuel reference range : 0.0 - 10.0 /100 WBCs. The reference range was not used to interpret this result as normal/abnormal . NRBC x10^3 (test code <0.01 See_Comment [Auto mated = 7651900463) message] The system which generated this result transmit josemanuel reference range : 10*3/?L. The reference range was not used to interpret this result as normal/abnormal . GRAN MAT (NEUT) % 57.1 % (test code = 770-8) IMM GRAN % (test code 0.40 % = 6817896593) LYMPH % (test code = 28.1 % 736-9) MONO % (test code = 10.4 % 5905-5) EOS % (test code = 3.6 % 713-8) BASO % (test code = 0.4 % 706-2) GRAN MAT x10^3(ANC) 1.42 10*3/uL 1.88-7.09 L (test code = 0256856104) IMM GRAN x10^3 (test <0.03 0-0.06 code = 2058458736) LYMPH x10^3 (test 0.70 10*3/uL 1.32-3.29 L code = 731-0) MONO x10^3 (test code 0.26 10*3/uL 0.33-0.92 L = 742-7) EOS x10^3 (test code 0.09 10*3/uL 0.03-0.39 = 711-2) BASO x10^3 (test code <0.03 0.01-0.07 = 704-7) PLT ESTIMATE (test Critically Normal AA code = 9317-9) Decreased Lab Interpretation Abnormal (test code = 72456-5) [facility] CenterGLYCOSYLATED HEMOGLOBIN (A1C)2019-08-10 13:13:00 Test [...] Indicated Lab Interpretation Normal (test code = 37821-8) [facility] CenterTHYROID STIMULATING [id number] 13:05:00 Test Item Value Reference Range Interpretation Comments TSH (test code = See_Comment [Automated message] 5318371798) The system [employer] generated this result transmitted ref erence range: 0.45 - 4 .70 mIU/L. The refe rence range was not u sed to interpret this result as normal/abnor mal. Lab Interpretation (test Normal code = 36290-5) [facility] CenterPREGNANCY TEST, [id number] 13:04:00 Test Item Value Reference Range Interpretation Comments PREG SERUM (test code Negative = 8835025648) SNOW (test code = SNOW) Less than 10 IU/L. ?If low titer or ectopic is suspected, resubmit specimen in 48-72 hours. [facility] CenterLIPID PANEL (72047)(TOTAL CHOLESTEROL, TRIGLYCERIDES, HDL)2019-08-10 12:36:00 Test Item Value Reference Range Interpretation Comments CHOL (test code = 158 mg/dL 120-200 3086284825) HDL (test code = 47 mg/dL >50 L 6142327573) HDLC RATIO (test code = See_Comment [Au tomated message] 9627101557) The system [employer] generated this result transmit josemanuel reference range : <=4.5. The refe rence range was not u sed to interpret th is result as normal/abnormal . TRIG (test code = 51 mg/dL 30-170 2329709069) LDL CHOL (test code = 101 mg/dL See_Comment [Auto mated message] 17292-5) The system [employer] generated this result transmit josemanuel reference range : <=160. The refe rence range was not u sed to interpret th is result as normal/abnormal . VLDL (test code = 10 mg/dL 5-60 8849356550) Lab Interpretation (test Abnormal code = 12208-6) [facility] CenterCOMP. METABOLIC PANEL (00033)2019-08-10 12:35:00 Test Item Value Reference Range Interpretation Comments NA (test code = 139 mmol/L 135-145 4785426922) K (test code = 3.9 mmol/L 3.5-5 3477448212) CL (test code = 109 mmol/L 98-108 H 6044686890) CO2 TOTAL (test code = 25 mmol/L 23-31 8414096934) AGAP (test code = 2-16 9185052596) BUN (test code = 15 mg/dL 7-23 6721190745) GLUCOSE (test code = 218 mg/dL 70-110 H 6326428393) CREATININE (test code = 0.40 mg/dL 0.5-1.04 L 4977897560) TOTAL BILI (test code = 2.0 mg/dL 0.1-1.1 H 5354898077) CALCIUM (test code = 8.5 mg/dL 8.6-10.6 L 0266561660) T PROTEIN (test code = 6.2 g/dL 6.3-8.2 L 8200271386) ALBUMIN (test code = 3.1 g/dL 3.5-5 L 2865593075) ALK PHOS (test code = 99 U/L 34-122 2336954087) ALTv (test code = 42 U/L 5-35 H 1742-6) AST(SGOT) (test code = 49 U/L 13-40 H 7876131927) eGFR Calculation mL/min/1.73m2 (Non-) (test code = 5053768237) eGFR Calculation mL/min/1.73m2 () (test code = 8945196846) SNOW (test code = SNOW) Association of [...] tests). Lab Interpretation Abnormal (test code = 37224-3) [facility] CenterMAGNESIUM2020-05-01 12:35:00 Test Item Value Reference Range Interpretation Comments MAGNESIUM (test code = 9243646488) 1.6 mg/dL 1.7-2.4 L Lab Interpretation (test code = Abnormal 29795-4) [facility] CenterPHOSPHORUS2020-05-01 12:35:00 Test Item Value Reference Range Interpretation Comments PHOSPHORUS (test code = 4454593223) 3.6 mg/dL 2.5-5 Lab Interpretation (test code = Normal 83271-7) [facility] CenterCREATINE [id number] 12:35:00 Test Item Value Reference Range Interpretation Comments CK (test code = 2430349506) 123 U/L 33-194 Lab Interpretation (test code = Normal 09243-9) [facility] CenterLIPASE2020-05-01 12:35:00 Test Item Value Reference Range Interpretation Comments LIPASE (test code = 4265036516) 141 U/L 0-220 Lab Interpretation (test code = Normal 06302-0) [facility] CenterAMYLASE2020-05-01 12:34:00 Test Item Value Reference Range Interpretation Comments KANDICE (test code = 5412000287) 73 U/L 35-110 Lab Interpretation (test code = Normal 17255-4) [facility] CenterPROTHROMBIN TIME / [id number] 12:07:00 Test Item Value Reference Range Interpretation Comments PROTIME PATIENT (test See_Comment H [Auto mated message] code = 5964-2) The system [employer] generated this result transmitted ref erence range: 12.0 - 1 4.7 Seconds. The reference range was not used to int erpret this result as normal/abnormal . INR (test code = 6301-6) Nor mal INR <1.1; Warfarin Therap eutic range 2.0 to 3. 0 or 2.5 to 3.5, dep ending upon the indica tions. Lab Interpretation (test Abnormal code = 43142-7) [facility] CenterCORONAVIRUS COVID-19 [id number] 10:18:00 Test Item Value Reference Range Interpretation Comments SARS-CoV-2 (test code = Not Detected Not Detected 07403-0) SNOW (test code = SNOW) ID NOW COVID-19 Assay is an isothermal nucleic acid amplification test intended for the qualitative detection of nucleic acid from SARS-CoV-2 viral RNA in nasopharyngeal (SLIP BRIDGE OPERATOR) specimens. It is used under Emergency [...] indicated. Lab Interpretation Normal (test code = 27193-1) [facility] CenterRAD, CHEST, 1 VIEW, NON [id number] 07:50:00Reason for exam:->SOBShould this be performed at the bedside?->Yes FINAL REPORT CLINICAL HISTORY: SOB TECHNIQUE: 1 view of the chest. COMPARISON: None IMPRESSION: There is pulmonary vascular congestion with prominent lung markings bilaterally. Subpulmonic pleural effusions cannot be excluded. The cardiomediastinal silhouette is magnified by technique. Signed: Franky Hoyt MDReport Verified Date/Time: 10/03/2018 07:50:47 Reading Location: [facility] Radiology Reading Room [id number] 07:37:00 Test Item Value Reference Range Interpretation Comments MAGNESIUM (BEAKER) (test code = 1.6 mg/dL 1.6-2.6 627) BASIC METABOLIC [id number] 07:37:00 Test Item Value Reference Range Interpretation [...] DIALYSIS PATIEN TS. Specimen slightly ictericHEPATIC FUNCTION [id number] 07:37:00 Test Item Value Reference Range Interpretation [...] 35 U/L 6-55 347) Specimen slightly ictericPROTHROMBIN TIME/[id number] 06:25:00 Test Item Value Reference Range Interpretation [...] mechanical heart valves.CBC W/PLT COUNT & AUTO [id number] 06:16:00 Test Item Value Reference Range Interpretation [...] = 3438) Received comment: User comments: Slide comments:[id number] 05:58:00 Test Item Value Reference Range Interpretation Comments MAGNESIUM (BEAKER) (test code = 1.6 mg/dL 1.6-2.6 627) BASIC METABOLIC [id number] 05:58:00 Test Item Value Reference Range Interpretation [...] DIALYSIS PATIEN TS. Specimen slightly ictericHEPATIC FUNCTION [id number] 05:58:00 Test Item Value Reference Range Interpretation [...] 39 U/L 6-55 347) Specimen slightly ictericPROTHROMBIN TIME/[id number] 05:26:00 Test Item Value Reference Range Interpretation [...] mechanical heart valves.CBC W/PLT COUNT & AUTO [id number] 05:20:00 Test Item Value Reference Range Interpretation [...] WBC 0-0 (test code = 413) VITAMIN [id number] 06:57:00 Test Item Value Reference Range Interpretation Comments VITAMIN B12 (BEAKER) (test code = 178 pg/mL 213-816 L 774) [id number] 06:57:00 Test Item Value Reference Range Interpretation Comments FERRITIN (BEAKER) (test code = 361) 21 ng/mL 5-275 FOLATE, [id number] 06:57:00 Test Item Value Reference Range Interpretation [...] 28 % 20-55 (test code = 2590) [id number] 05:59:00 Test Item Value Reference Range Interpretation Comments MAGNESIUM (BEAKER) (test code = 1.7 mg/dL 1.6-2.6 627) BASIC METABOLIC [id number] 05:59:00 Test Item Value Reference Range Interpretation [...] FOR DIALYSIS PATIEN TS. Specimen slightly ictericLIPID [id number] 05:59:00 Test Item Value Reference Range Interpretation [...] Very High >=190 Specimen slightly ictericHEPATIC FUNCTION [id number] 05:59:00 Test Item Value Reference Range Interpretation [...] = 41 U/L 6-55 347) Specimen slightly [id number] 05:59:00 Test Item Value Reference Range Interpretation Comments LIPASE (BEAKER) (test code = 749) 35 U/L 8-78 Specimen slightly ictericPROTHROMBIN TIME/[id number] 05:58:00 Test Item Value Reference Range Interpretation [...] mechanical heart valves.CBC W/PLT COUNT & AUTO [id number] 05:37:00 Test Item Value Reference Range Interpretation [...] EOSINOPHILS ABSOLUTE COUNT 0.12 K/ L 0.04-0.36 (BANNER) (test code = 416) BASOPHILS ABSOLUTE COUNT (BANNER) 0.02 K/ L 0.01-0.08 (test code = 417) IMMATURE GRANULOCYTES-RELATIVE 0 % 0-1 PERCENT (BANNER) (test code = 2801) POCT-HEMOGLOBIN [id number] 06:12:00 Test Item Value Reference Range Interpretation Comments POC-HEMOGLOBIN METER 8.6 g/dL 12.0-15.0 L TESTED AT [facility] [address] (BANNER) (test code = [place] [address] 1539)"
[2022-10-06] MEDS ORDERED: NA CHLORIDE 0.9% 1,000 ML ONE (13:13)
[2022-10-06 13:29] LABS: Absolute Lymphocytes (CBC) 0.4 K/uL (0.7-4.9); Hematocrit 28.4 % (36.0-45.0); Lymphocytes % 15.8 % (15.3-44.8); MCV 93.9 fL (80-100); MPV 7.3 fL (7.6-11.3); RBC Red Blood Cell Count 3.03 M/uL (3.86-4.86)
[2022-10-06 13:32] LABS: Renal Epithelial <5 /HPF (None Seen); Specific Gravity 1.015 (1.005-1.030); Urine Bacteria None Seen /HPF (<20); Urine Bilirubin NEGATIVE (Negative); Urine Blood Negative (Negative); Urine Clarity Extremely Turbid (Clear); Urine Color Yellow (Yellow); Urine Glucose NEGATIVE (Negative); Urine Mucus Slight /HPF (None Seen); Urine Protein TRACE (Negative); Urine Urobilinogen Normal (Normal); Urine pH 5.5 (5.0-7.0)
[2022-10-06 13:46] LABS: Albumin 3.2 g/dL (3.4-5.0); Bilirubin Total 1.8 mg/dL (0.2-1.0); Protein, Total 6.6 g/dL (6.4-8.2)
[2022-10-06] MEDS ORDERED: ONDANSETRON 4 MG/2 ML VIAL ONE (14:38)
[2022-10-06] MEDS ORDERED: KETOROLAC 30 MG/ML INJ ONE (14:38)
--- NOTE | 2022-10-06 14:41 | RAD REPORT ---
EXAM DESCRIPTION: CTAbdomen Pelvis W Contrast - 10/06/2022 2:15 pm CLINICAL HISTORY: Abdominal pain. ABD PAIN COMPARISON: <Comparisons> TECHNIQUE: Biphasic CT imaging of the abdomen and pelvis was performed with 100 ml non-ionic IV cont rast. All CT scans are performed using dose optimization technique as appropriate and may include automated exposure control or mA/KV adjustment according to patient size. FINDINGS: The lung bases are clear. Moderate liver cirrhosis. Cholecystectomy clips. Moderate splenomegaly. 29 mm splenic artery aneurysm . Portal vein appears enlarged indicating portal hypertension. Bilateral adrenal glands and kidneys are within normal limits. Tiny punctate right renal calculus wit hout hydronephrosis. No pancreatic mass. No bowel obstruction, free air, free fluid or abscess. Nonvisualized appendix. No evidence of signi ficant lymphadenopathy. No suspicious bony findings. IMPRESSION: Moderate liver cirrhosis. No ascites. Moderate splenomegaly. Portal hypertension.
[2022-10-06 15:03] LABS: Anisocytosis 1+; Blood Morphology Comment NOTED (NOT SEEN); Macrocytosis 1+; Platelet Estimate DECR; White Blood Cell Scan DECREASED (OK)
[2022-10-06 15:04] LABS: Ovalocytes 1+; Poikilocytosis 1+; Teardrop Cell FEW
--- NOTE | 2022-10-06 15:26 | EDPHYS ---
Physician Documentation [facility] Name: Zenaida Goss Age: 62 yrs Sex: Female : 1960 Arrival Date: 10/06/2022 Time: 12:36 Bed 13 Private MD: EUGENIO VALLADARES ED Physician Lenny Enrique HPI: 10/06 16:12 This 62 yrs old Female presents to ER via Ambulatory with complaints of Back kb Pain, kidney infection. 16:12 Severity of symptoms: At their worst the symptoms were moderate, in the emergency kb department the symptoms are unchanged. The patient has not experienced similar symptoms in the past. The patient has been recently seen by a physician: the patient's primary care provider, yesterday, with similar presenting complaints, and apparently given a diagnosis of UTI, was given a prescription for antibiotics. 16:12 The patient complains of pain in the right flank. The pain radiates to the right lower kb quadrant. Onset: The symptoms/episode began/occurred yesterday. Modifying factors: The symptoms are alleviated by nothing. the symptoms are aggravated by movement. Associated signs and symptoms: Pertinent positives: dysuria, nausea. Severity of pain: At its worst the pain was moderate in the emergency department the pain is unchanged. Historical: - Allergies: 12:45 Demerol; ld1 12:45 Dilaudid; ld1 12:45 Morphine (Anaphylaxis); ld1 12:45 Phenergan; sloan in IV; ld1 - PMHx: 12:45 Anemia; breast cancer; Cirrhosis; ESOPHAGEAL VARACIES; fatty liver; Heart Murmur; ld1 Pancreatitis; polyp; - PSHx: 12:45 Appendectomy; Cholecystectomy; Lumpectomy of breast; right knee surgery; right ld1 lymphectomy; Total abdominal hysterectomy; Paracentesis; - Immunization history:: Adult Immunizations up to date. - Social history:: Smoking status: Patient denies any tobacco usage or history of. Patient/guardian denies using alcohol. ROS: 16:03 Constitutional: Negative for fever, chills, and weight loss. kb 16:03 : Positive for urinary symptoms, flank pain, burning with urination. 16:03 All other systems are negative. Exam: 16:03 Constitutional: This is a well developed, well nourished patient who is awake, alert, kb and in no acute distress. Head/Face: Normocephalic, atraumatic. ENT: Moist Mucous membranes Cardiovascular: Regular rate and rhythm with a normal S1 and S2. No gallops, murmurs, or rubs. No pulse deficits. Respiratory: Respirations even and unlabored. No increased work of breathing. Talking in full sentences Abdomen/GI: Soft, non-tender. No distention Skin: Warm, dry with normal turgor. Normal color. MS/ Extremity: Pulses equal, no cyanosis. Neurovascular intact. Full, normal range of motion. Neuro: Awake and alert, GCS 15, oriented to person, place, time, and situation. Moves all extremities. Normal gait. 16:03 Back: CVA tenderness, that is mild, is noted on the right. Vital Signs: 12:43 BP 114 / 48; Pulse 84; Resp 18; Temp 98.2(O); Pulse Ox 98% on R/A; Weight 100.24 kg; ld1 Height 5 ft. 3 in. ; Pain 10/10; 14:08 BP 117 / 52; Pulse 72; Resp 17 S; Pulse Ox 95% on R/A; kc6 15:01 BP 112 / 41; Pulse 70; Resp 16 S; Pulse Ox 97% on R/A; kc6 12:43 Body Mass Index 39.15 (100.24 kg, 160.02 cm) ld1 12:43 Pain Scale: Adult ld1 MDM: 12:43 Patient medically screened. kb 16:11 Differential diagnosis: Ureterolithiasis UTI, muscle strain, pyelonephritis. Data kb reviewed: vital signs, nurses notes. Counseling: I had a detailed discussion with the patient and/or guardian regarding: the historical points, exam findings, and any diagnostic results supporting the discharge/admit diagnosis, lab results, radiology results, the need for outpatient follow up, a family practitioner, a market reporter, to return to the emergency department if symptoms worsen or persist or if there are any questions or concerns that arise at home. 10/06 12:55 Order name: CBC with Diff; Complete Time: 15:09 kb 10/06 12:55 Order name: CMP; Complete Time: 13:47 kb 10/06 12:55 Order name: Lipase; Complete Time: 13:47 kb 10/06 12:55 Order name: Urinalysis w/ reflexes; Complete Time: 13:45 kb 10/06 13:34 Order name: CBC Smear Scan; Complete Time: 15:09 EDMS 10/06 13:38 Order name: Urine Culture EDKS 10/06 12:55 Order name: CT Abd/Pelvis - IV Contrast Only; Complete Time: 14:46 kb 10/06 12:55 Order name: IV Saline Lock; Complete Time: 13:24 kb 10/06 12:55 Order name: Labs collected and sent; Complete Time: 13:24 kb Administered Medications: 13:20 Drug: NS 0.9% IV 1000 ml Route: IV; Rate: 1 bolus; Site: left wrist; mb9 14:33 Follow up: Response: No adverse reaction; IV Status: Completed infusion; IV Intake: kc6 1000ml 14:33 Drug: Ondansetron IVP 4 mg Route: IVP; Site: left wrist; kc6 15:38 Follow up: Response: No adverse reaction mb9 14:33 Drug: Ketorolac IVP 15 mg Route: IVP; Site: left wrist; kc6 15:38 Follow up: Response: No adverse reaction mb9 15:25 Drug: Potassium Chloride PO 40 mEq Route: PO; mb9 15:39 Follow up: Response: No adverse reaction mb9 15:25 Drug: Decadron - Dexamethasone IVP 10 mg Route: IVP; Site: left wrist; mb9 15:39 Follow up: Response: No adverse reaction mb9 Disposition: 16:15 Co-signature as Attending Physician, Lenny Enrique MD I agree with the assessment and kdr plan of care. Disposition Summary: 10/06/22 15:25 Discharge Ordered Location: Home kb Condition: Stable kb Diagnosis - Low back pain kb Followup: kb - With: Emergency Department - When: As needed - Reason: Worsening of condition Followup: kb - With: Private Physician - When: 2 - 3 days - Reason: Recheck today's complaints, Continuance of care, Re-evaluation by your physician Discharge Instructions: - Discharge Summary Sheet kb - Musculoskeletal Pain kb - Flank Pain, Adult, [id number] kb Forms: - Medication Reconciliation Form kb - Thank You Letter kb - Antibiotic Education kb - Prescription Opioid Use kb - [email or web address] kb Prescriptions: - Prednisone 20 mg Oral Tablet - take 1 tablet by ORAL route once daily for 5 days; 5 tablet; Refills: 0, kb Product Selection Permitted Signatures: Dispatcher [employer] Valarei Arias, PRODUCT EVANGELISTYosephC PRODUCT EVANGELIST-Lenny Mercado MD MD kdr Sims, Lauren RN RN ld1 Rosetta Prado RN RN kc6 Olivia Mendoza Beth, RN RN mb9
--- NOTE | 2022-10-06 15:26 | ER ---
Nurse's Notes [facility] Name: Zenaida Goss Age: 62 yrs Sex: Female : 1960 Arrival Date: 10/06/2022 Time: 12:36 Bed 13 Private MD: EUGENIO VALLADARES Diagnosis: Low back pain Presentation: 10/06 12:43 Chief complaint: Patient states: Pain to right flank since Tuesday - pain is now ld1 wrapping around right abdomen. Burning with urination. Saw doctor - reports kidney infection. Coronavirus screen: At this time, the client does not indicate any symptoms associated with coronavirus-19. Ebola Screen: No symptoms or risks identified at this time. Initial Sepsis Screen: Does the patient meet any 2 criteria? No. Patient's initial sepsis screen is negative. Does the patient have a suspected source of infection? No. Patient's initial sepsis screen is negative. Risk Assessment: Do you want to hurt yourself or someone else? Patient reports no desire to harm self or others. Onset of symptoms was October 06, 2022 at 12:45. 12:43 Method Of Arrival: Ambulatory ld1 12:43 Acuity: TANK 3 ld1 Triage Assessment: 12:45 General: Appears in no apparent distress. comfortable, Behavior is calm, cooperative, ld1 appropriate for age. Pain: Complains of pain in low back area Pain radiates to right lower quadrant Pain currently is 10 out of 10 on a pain scale. Quality of pain is described as throbbing. EENT: No signs and/or symptoms were reported regarding the EENT system. Neuro: Level of Consciousness is awake, alert, obeys commands, Oriented to person, place, time, situation. Cardiovascular: Capillary refill < 3 seconds Patient's skin is warm and dry. Respiratory: Airway is patent Respiratory effort is even, unlabored. GI: Abdomen is round non-distended. : Reports burning with urination, pain in right flank(s). Derm: No signs and/or symptoms reported regarding the dermatologic system. Musculoskeletal: Range of motion: intact in all extremities. Historical: - Allergies: 12:45 Demerol; ld1 12:45 Dilaudid; ld1 12:45 Morphine (Anaphylaxis); ld1 12:45 Phenergan; sloan in IV; ld1 - PMHx: 12:45 Anemia; breast cancer; Cirrhosis; ESOPHAGEAL VARACIES; fatty liver; Heart Murmur; ld1 Pancreatitis; polyp; - PSHx: 12:45 Appendectomy; Cholecystectomy; Lumpectomy of breast; right knee surgery; right ld1 lymphectomy; Total abdominal hysterectomy; Paracentesis; - Immunization history:: Adult Immunizations up to date. - Social history:: Smoking status: Patient denies any tobacco usage or history of. Patient/guardian denies using alcohol. Screenin:00 [facility] ED Fall Risk Assessment (Adult) History of falling in the last 3 months, kc6 including since admission No falls in past 3 months (0 pts) Confusion or Disorientation No (0 pts) Intoxicated or Sedated No (0 pts) Impaired Gait No (0 pts) Mobility Assist Device Used No (0 pt) Altered Elimination No (0 pt) Score/Fall Risk Level 0 - 2 = Low Risk Oriented to surroundings, Maintained a safe environment, Educated pt \T\ family on fall prevention, incl call for assistance when getting out of bed, Assessed \T\ reinforced patient's understanding of fall precautions, Hourly rounding (assess needs \T\ fall precautionary measures) done. Abuse screen: Denies threats or abuse. Denies injuries from another. Nutritional screening: No deficits noted. Tuberculosis screening: No symptoms or risk factors identified. Assessment: 13:00 General: Appears in no apparent distress. comfortable, Behavior is calm, cooperative, kc6 appropriate for age. Pain: Complains of pain in right lower quadrant and low back area. Neuro: Mahajan Agitation-Sedation Scale (RASS): 0 - Alert and Calm Level of Consciousness is awake, alert, obeys commands, Oriented to person, place, time, situation, Appropriate for age. Cardiovascular: Capillary refill < 3 seconds. Respiratory: Airway is patent Trachea midline Respiratory effort is even, unlabored, Respiratory pattern is regular, symmetrical. GI: No signs and/or symptoms were reported involving the gastrointestinal system. : Reports burning with urination. EENT: No signs and/or symptoms were reported regarding the EENT system. Derm: No signs and/or symptoms reported regarding the dermatologic system. Skin is intact, Skin is pink, warm \T\ dry. Musculoskeletal: No signs and/or symptoms reported regarding the musculoskeletal system. Circulation, motion, and sensation intact. Capillary refill < 3 seconds, Range of motion: intact in all extremities. 14:00 Reassessment: Patient appears in no apparent distress at this time. No changes from kc6 previously documented assessment. Patient and/or family updated on plan of care and expected duration. Pain level reassessed. Patient is alert, oriented x 3, equal unlabored respirations, skin warm/dry/pink. 15:01 Reassessment: Patient appears in no apparent distress at this time. No changes from kc6 previously documented assessment. Patient and/or family updated on plan of care and expected duration. Pain level reassessed. Patient is alert, oriented x 3, equal unlabored respirations, skin warm/dry/pink. Vital Signs: 12:43 BP 114 / 48; Pulse 84; Resp 18; Temp 98.2(O); Pulse Ox 98% on R/A; Weight 100.24 kg; ld1 Height 5 ft. 3 in. ; Pain 10/10; 14:08 BP 117 / 52; Pulse 72; Resp 17 S; Pulse Ox 95% on R/A; kc6 15:01 BP 112 / 41; Pulse 70; Resp 16 S; Pulse Ox 97% on R/A; kc6 12:43 Body Mass Index 39.15 (100.24 kg, 160.02 cm) ld1 12:43 Pain Scale: Adult ld1 ED Course: 12:37 Patient arrived in ED. am2 12:38 EUGENIO VALLADARES is Private Physician. am2 12:43 [facility]arie Wise [facility]C [facility] kb 12:43 Lenny Enrique MD is Attending Physician. kb 12:45 Triage completed. ld1 12:45 Arm band placed on right wrist. ld1 12:56 Olivia Mendoza RN is Primary Nurse. mb9 13:00 Patient has correct armband on for positive identification. Bed in low position. Call kc6 light in reach. Side rails up X 1. Adult w/ patient. 13:15 Inserted saline lock: 22 gauge in left wrist, using aseptic technique. mb9 13:24 CBC with Diff Sent. mb9 13:24 CMP Sent. mb9 13:24 Lipase Sent. mb9 13:24 Urinalysis w/ reflexes Sent. mb9 14:17 CT Abd/Pelvis - IV Contrast Only In Process Unspecified. EDMS 15:39 No provider procedures requiring assistance completed. IV discontinued, intact, mb9 bleeding controlled, No redness/swelling at site. Pressure dressing applied. Administered Medications: 13:20 Drug: NS 0.9% IV 1000 ml Route: IV; Rate: 1 bolus; Site: left wrist; mb9 14:33 Follow up: Response: No adverse reaction; IV Status: Completed infusion; IV Intake: kc6 1000ml 14:33 Drug: Ondansetron IVP 4 mg Route: IVP; Site: left wrist; kc6 15:38 Follow up: Response: No adverse reaction mb9 14:33 Drug: Ketorolac IVP 15 mg Route: IVP; Site: left wrist; kc6 15:38 Follow up: Response: No adverse reaction mb9 15:25 Drug: Potassium Chloride PO 40 mEq Route: PO; mb9 15:39 Follow up: Response: No adverse reaction mb9 15:25 Drug: Decadron - Dexamethasone IVP 10 mg Route: IVP; Site: left wrist; mb9 15:39 Follow up: Response: No adverse reaction mb9 Medication: 15:39 VIS not applicable for this client. mb9 Intake: 14:33 IV: 1000ml; Total: 1000ml. kc6 Outcome: 15:25 Discharge ordered by MD. kb 15:39 Discharged to home ambulatory, with significant other. mb9 15:39 Condition: stable 15:39 Discharge instructions given to patient, Instructed on discharge instructions, follow up and referral plans. medication usage, Demonstrated understanding of instructions, follow-up care, medications, Prescriptions given X 1. 15:39 Patient left the ED. mb9 Signatures: Dispatcher [employer] EDValarie Street, TY STERNP-Rere Monsalve Lauren, RN RN ld1 Rosetta Prado RN RN kc6 Olivia Mendoza RN RN mb9
[2022-10-06] MEDS ORDERED: dexAMETHasone 10 MG/ML VIAL ONE (15:38)
[2022-10-06] MEDS ORDERED: POTASSIUM CL SA 10 MEQ TAB PO ONE (15:38)
[2022-10-06 16:34] VITALS: TEMP 98.2
[2022-10-06 16:37] VITALS: BP 112/41; O2SAT 97
== END 2022-10-06 15:39 | disposition home or self-care (01) ==
LOC: ER 12:36
DX: M54.50 Low back pain, unspecified (principal); Z88.5 Allergy status to narcotic agent; Z88.8 Allergy status to other drugs, medicaments and biological substances; Z85.3 Personal history of malignant neoplasm of breast
CPT/HCPCS: 87088; 85025; 81001; 87086; 36415; 83690; 80053; 74177; Q9967; J1100; J2405; J7030; 96361; 96374; 96375; 99284

== ENCOUNTER 2022-12-26 12:06 | Emergency (ER) | payer OTHER ==
--- OUTSIDE RECORDS SUMMARY | 2022-12-26 12:23 | XMS REPORT | Continuity of Care Document ---
:1960 Author Organization [facility] t Address [address] [place] [address] Care Team Providers Name Role Phone Madhu Miranda Primary Care Physician Unavailable Annalise Souza Attending Clinician Unavailable Madhu Miranda Attending Clinician Unavailable PUJA CHÁVEZ Attending Clinician Unavailable JOSE RAUL NICOLE Attending Clinician Unavailable MALLORY SANCHEZ Attending Clinician Unavailable MD SHARITA SURESH Attending Clinician Unavail able Alex REYES, Rikki Donaldson Attending Clinician Unavailable BEBETO WARD Attending Clinician Unavailable Radiology Attending Clinician Unavailable RADIOLOGY Attending Clinician Unavailable Pob, [facility] Main Attending Clinician Unavailable Handy Rhoades MD Attending Clinician Sukhdev SOTO Attending Clinician Unavailable Sukhdev Fajardo Attending Clinician Willian Singleton MD Attending Clinician Nancy HENSLEY, Nakia Attending Clinician Thomas HENSLEY, Elias Attending Clinician Ken HENSLEY, Kandice Attending Clinician Greg HENSLEY, Ariel Sparks Attending Clinician Tiffanie Levi MA Attending Clinician Unavailable Belem Duarte Attending Clinician Ramsey SOMMER, Krystyna Gonzalez Attending Clinician [phone] [place] Attending Clinician Unavailable Alvaro [facility], Aramis Attending Clinician Unavailable Laura Aguilera Attending Clinician Unavailable Verónica HENSLEY, Carolin Diaz Attending Clinician Isaura HENSLEY, Fer Barajas Attending Clinician [phone] Salena SOMMER, Cecilia Attending Clinician Elmer REYES, Juju Attending Clinician Unavailable Michael HENSLEY, Oniel Attending Clinician Maite HENSLEY, Anand Baron Attending Clinician Ara HENSLEY, Jeremy Desouza Attending Clinician [phone] Verónica HENSLEY, Jeovany Ferro Attending Clinician Estefania Hameed CRNA Attending Clinician [phone] ESTEPHANIA FLOOD Attending Clinician Unavailable Estephania Flood MD Attending Clinician EMILY SALGADO Attending Clinician Unavailable Emily Salgado MD Attending Clinician Rhoda Erickson RN Attending Clinician Unavailable FLORIAN AYERS Attending Clinician Unavailable Florian Ayers DO Attending Clinician Charline HENSLEY, Rolando Pettit Attending Clinician Aziza Cordero MD Attending Clinician Bebeto Heck MD Attending Clinician Amandeep HENSLEY, Vandana Mae Attending Clinician Karlo HENSLEY, Handy Blanco Attending Clinician [phone] Rehrer DOStevo Attending Clinician Nafisa HENSLEY, Jefferson Lisa Attending Clinician Ronnie HENSLEY, Mahnaz Attending Clinician Feng Burgos Attending Clinician Doctor Unassigned, [place] Attending Clinician Unavailable [facility], Orthopedic Attending Clinician Unavailabl e NORMA, KAVITAO F Attending Clinician Unavailable Ibelizabeth BLADDER CLEANER, Kinsey F Attending Clinician Nancy REYES, Frances Attending Clinician Unavailable LEXIE SHEFFIELD Attending Clinician [...] Clinician Unavailable SHARITA SURESH Admitting Clinician Unavailable BEBETO WARD Admitting Clinician Unavailable JEREMY SANDOVAL Admitting Clinician Unavailable WILLIAN SINGLETON Admitting Clinician Unavailable NAKIA CRUZ Admitting Clinician Unavailable DO AIMEE WARD Admitting Clinician Unavailable ESTEPHANIA FLOOD Admitting Clinician Unavailable FLORIAN AYERS Admitting Clinician Unavailable SHANNARESami, DO STEVO DELVALLE Admitting Clinician Unavailable Sukhdev SOTO Admitting Clinician Unavailable KAVITA GREENO F Admitting Clinician Unavailable GARTH CARLOS [...] Number Effective Date Expiration Date [facility] [id number] 2019 CHOICE 00:00:00 Problems Condition Condition Condition [...] Active Met hodi of liver of liver 1- st with with 00:00: Hospita ascites, ascites, 00 l unspecifie unspecifie d hepatic d hepatic cirrhosis cirrhosis type type Hematochez Hematochez Disease Active Overview : Methodi ia ia 05-[address] 00:00: g of this Hospita 00 note l might be different from the original. Added automatic ally from request for surgery [id number] Abdominal Abdominal Disease Active 2021-04 Met hodi pain, pain, 117 st unspecifie unspecifie 00:00: Ho spita d d 00 l abdominal abdominal location location Pancreatic Pancreatic Disease Active 2021-04 Overview : Methodi cyst cyst [address] 00:00: g of this Hospita 00 note l might be different from the original. Added automatic ally from request for surgery [id number] Gastritis Gastritis Disease Active Met hodi without [...] Added automatic ally from request for surgery [id number] Pancolitis Pancolitis Disease Active U nivers 6-21 ity of 00:00: [place] 00 [facility] Arrhythmia Arrhythmia Disease Active U nivers 6-21 ity of 00:00: [place] 00 [facility] Ventricula Ventricula Disease Active U nivers r r 6-21 [place] tachy[place] [facility] Other Other Disease Active Univers cirrhosis cirrhosis - ity of of liver of liver 00:00: [place] 00 [facility] ANAYA ANAYA Disease Active Univers (nonalcoho (nonalcoho 09-29 it y of lic lic 00:00: [place] ste[place] 00 Me dical titis) titis) Branch Hypokalemi Hypokalemi Disease Active U nivers a a 6-21 ity of 00:00: [place] 00 [facility] Acute Acute Disease Active Univers colitis colitis 6-21 ity of 00:00: [place] 00 [facility] Abdominal Abdominal Disease Active Met hodi pain, pain, 302 st acute acute 00:00: Hospita 00 l [...] (small Disease Active U nivers bowel bowel - [place] obstruct[place] [...] of - [facility] right knee right knee [facility] Primary Primary Diagnosis Active 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 of itis of - [facility] left knee left knee [facility] Allergies, Adverse Reactions, Alerts Allergy Allergy [...] to drug Latex Propensi Active Rash 2016-04 Methodi ty to 2-18 st adverse 00:00: Hospita reaction 00 l s to drug LATEX Allergy Active Low Rash 2016-[address] [facility] [facility] Latex Propensi Active Rash 2016-[address] [facility] adverse 00:[facility]: Medical reaction 00 Center s MORPHINE DRUG Active High Anaphylaxis Uni vers INGREDI - ity of 00:00: [address] MORPHINE Allergy Active High Sob [facility] Morphine Propensi Active Shortness Of Throat [facility] to Breath, 06-30 [facility] adverse Swelling 00:00: tongue Medical reaction 00 swelling Center s MORPHINE Adverse Active Info Not Commo n Reaction Available Spiri t - [facility] Social History Social Habit Start Date Stop Date Quantity Comments Source [facility] Sexual [facility] History SDOH [facility] St[facility] Hospit al History SDOH [facility] History of Social 2022-09-23 2022-09-[address] function 00:00:00 00:00:00 Hospital Exposure to 2022-08-01 2022-08-11 Not sure University of SARS-CoV-2 (event) 00:00:00 10:30:00 [facility] Tobacco use and 2021-11-27 2021-11-27 Smokeless [facility] exposure 00:00:00 00:00:00 tobacco non-user Hospital History SDOH 2020-03-19 2020-03-19 1 [facility] Frequency 00:00:00 00:00:00 Hospita l Alcohol intake 2018-10-03 2018-10-[address] [facility] 00:[facility]00 00:00:00 non-drinker of Medical Ce nter alcohol (finding) Sex Assigned At [address] [address] [facility] 00:[facility] Smoking Status Start Date Stop Date Source Never smoked tobacco [facility] Medications Ordered Filled Start Stop Current Ordering Indication Dosage Frequency Signature Comments Components Source Medication Medication Date Date Medication? Clinician (SIG) Name Name linaCLOtide 0 2022- No 145ug QD Take 1 Me thodi (LINZESS) 6-16 08-[address] 145 mcg 00:00: 04:59 (145 mcg Hospi ta capsule 00 :00 total) by l mouth daily before breakfast for 60 days. riFAXimin 2022-0 Yes 550mg Q.5D Take 1 Metho di (XIFAXAN) 6-[address] 550 mg 16:51: (550 mg Hospita tablet 56 total) by l mouth 2 (two) times a day. sucralfate 0 Yes 1g QD Take 10 mL M ethodi (CARAFATE) 6-15 ([address] 100 mg/mL 16:51: total) by Hos alvaro suspension 56 mouth l daily. multivit Yes 1{tbl} QD Take 1 Metho di with 6-[address] calcium,iro 16:51: mouth Hospi ta n,min 56 daily. l (WOMEN'S DAILY MULTIVITAMI N ORAL) torsemide 0 Yes 10mg QD Take 1 Method i (DEMADEX) 6-15 tablet (10 st 10 MG 16:51: mg total) Hospita tablet 56 by mouth l daily. spironolact 2022-0 2022- No 50mg Q.5D Take [...] l tablet (two) times a day. ergocalcife 2022-0 2022- No [id number] Q7D Take 1 M ethodi rol 09-11 [...] 2 to 3 stools daily ferrous 2022- No 325mg Q48H Take 1 Method i sulfate 325 09-[address] (65 FE) MG 00:00: 04:59 (325 mg Hos alvaro tablet 00 :00 total) by l mouth every other day for 30 days. lipase-prot 2022- No 1{capsu Q.[id number] Take 1 Methodi ease-amylas 09-09 le} [id number] capsule by st e (ZENPEP) 00:00: 04:59 [...] No 2{puff} Q.5D Inhale 2 Methodi formoterol 09-[address] (Dulera) 00:00: 04:59 (two) Hospita 200-5 00 :00 times a l mcg/actuati day for 30 on inhaler days. ondansetron 2022- No 4mg Q8H Take 1 Met hodi (Zofran) 4 09-09 tablet (4 st MG tablet 00:00: 04:59 mg total) Ho spita 00 :00 by mouth l every 8 (eight) hours as needed for nausea or vomiting for up to 30 days. pantoprazol 2022- No 40mg Q.5D Take 1 Met hodi e 09-09 tablet (40 st (PROTONIX) 00:00: 04:59 mg total) H ospita 40 MG EC 00 :00 by mouth 2 l tablet (two) times a day for 30 days. polyethylen 2022- No 34g Q.5D Take 34 g Methodi e glycol 09-[address] (MIRALAX) 00:00: 04:59 (two) Hospit a 17 gram 00 :00 times a l packet day for 30 days. Goal is 2 to 3 stools dailyMay use over the counter Miralax brand Ventolin 2022-2022- No 2{puff} Q4H Inhale 2 M ethodi HFA 90 09-[address] mcg/actuati 00:00: 04:59 every 4 Ho spita on inhaler 00 :00 (four) l hours as needed for shortness of breath for up to 30 days. simethicone 2022- No 80mg Q.[id number] Chew 1 Methodi (MYLICON) 09-09 [id number] tablet (80 st 80 MG 00:00: 04:59 [...] is 2 to 3 stools daily KCL 2022-0 2022- No 40meq 40 mEq, Univers (KLOR-CON 4-29 04-29 Oral, ity of M20) tablet 08:30: 07:30 [place] 40 mEq 00 :00 dose, On Medical Sat Branch 08/07/22 at 0330, Routine ondansetron 2022- No 4mg 4 mg, Slow Univers (ZOFRAN 08-07 IV Push, ity of (PF)) 08:00: 06:56 ONCE, 1 [place] injection 4 00 :00 dose, On Medi molly mg Sat Branch 08/07/22 at 0300, VERN KCL 20 mEq 2022- No [id number] 20meq Take 1 Univers tablet 08-07 05-03 tablet by ity of 00:00: 04:59 mouth in [place] 00 :00 the Medical morning Branch and 1 tablet in the evening. Do all this for 3 days. lipase-prot 2022- No 1{capsu Q.[id number] Take 1 Methodi ease-amylas 08-04 le} [id number] capsule by st e (CREON) 17:26: 00:00 3D mouth 3 [facility] 36,000-114, 01 :00 (three) l 000- times a 180,000 day with unit meals. capsule,del ayed release(DR/ EC) ondansetron 2022- No 4mg Q8H Take 1 Met hodi (Zofran) 4 08-03 tablet (4 st MG tablet 00:00: 00:00 mg total) Ho spita 00 :00 by mouth l every 8 (eight) hours as needed for nausea or vomiting for up to 30 days. ferrous 2022- No 325mg Q48H Take 1 Method i sulfate 325 08-[address] (65 FE) MG 00:00: 00:00 (325 mg Hos alvaro tablet 00 :00 total) by l mouth every other day for 30 days. lactulose 2022- No 20mL Q.25D Take 20 mL Methodi (CHRONULAC) 08-03 by mouth 4 s t 10 gram/15 00:00: 00:00 (four) [facility] mL solution 00 :00 times a l day for 30 days. lipase-prot 2022- No 1{capsu Q.[id number] Take 1 Methodi ease-amylas 08-03 le} [id number] capsule by st e (ZENPEP) 00:00: 00:00 3D mouth 3 Hos alvaro 5,000-17,00 00 :00 (three) l 0- 24,000 times a unit day with capsule,del meals for ayed 30 days. release(DR/ EC) DR capsule methocarbam 2022-0 2022- No 500mg Q6H Take 1 Me thodi oL 08-03- tablet st (ROBAXIN) 00:00: 00:00 (500 mg [facility] 500 MG 00 :00 total) by l tablet mouth every 6 (six) hours for 30 days. mometasone- 2022-2022- No 2{puff} Q.5D Inhale 2 Methodi formoterol 08-03- puffs 2 st (Dulera) 00:00: 00:00 (two) Hospita 200-5 00 :00 times a l mcg/actuati day for 30 on inhaler days. pantoprazol 2022- No 40mg Q.5D Take 1 Met hodi e 08-03 tablet (40 st (PROTONIX) 00:00: 00:00 mg total) H ospita 40 MG EC 00 :00 by mouth 2 l tablet (two) times a day for 30 days. Ventolin 2022-2022- No 2{puff} Q4H Inhale 2 M ethodi HFA 90 08-03- puffs st mcg/actuati 00:00: 00:00 every 4 Ho spita on inhaler 00 :00 (four) l hours as needed for shortness of breath for up to 30 days. oxyCODONE 2022-0 2022- [place] [id number] 10mg Q4H Take 1 Meth dimitri (ROXICODONE 08-03-06 tablet (10 s t ) 10 MG 00:00: 04:59 mg total) [facility] tablet 00 :00 by mouth l every 4 (four) hours as needed for severe pain for up to 10 days .acute pain. Max Daily Amount: 60 mg ergocalcife 2022-0 2022- No [id number] Q.5W Take 1 M ethodi rol 07-12 05-[address] (VITAMIN 00:00: 04:59 (50,000 Hospi ta D2) 50,000 00 :00 Units l unit total) by capsule mouth 2 (two) times a week for 30 days. lipase-prot 2022-0 202- No .0002U{ Q.01949828 Take 1 Methodi ease-amylas 4-03 05-04 lipase} [id number] capsule st e (ZENPEP) 00:00: 04:59 3D (0.0002 Hos alvaro 5,000-17,00 00 :00 units of l 0 -27,000 lipase unit total) by capsule,del mouth 3 ayed (three) release(DR/ times a EC) day with meals for 30 days. ergocalcife 2022-0 2022- No [id number] Q.5W Take 1 M ethodi rol 4-03 05-[address] (VITAMIN 00:00: 04:59 (50,000 Hospi ta D2) 50,000 00 :00 Units l unit total) by capsule mouth 2 (two) times a week for 30 days. lipase-prot 2022-0 2022- No .0002U{ Q.[id number] Take 1 Methodi ease-amylas 4-03 04-20 lipase} [id number] capsule st e (ZENPEP) 00:00: 00:00 3D (0.0002 Hos alvaro 5,000-17,00 00 :00 units of l 0 -27,000 lipase unit total) by capsule,del mouth 3 ayed (three) release(DR/ times a EC) day with meals for 30 days. multivit 2022-0 Yes 1{tbl} Take 1 Metho di with 4-[address] calcium,iro 11:59: mouth. [facility] n,min 04 l (WOMEN'S DAILY MULTIVITAMI N ORAL) riFAXimin 2022-0 Yes 550mg Q.5D Take 1 Metho di (XIFAXAN) 3-[address] 550 mg 12:00: (550 mg Hospita tablet 11 total) by l mouth 2 (two) times a day. polyethylen 2023-0 Yes 17g Q2D Take 17 g M ethodi e glycol 3-[address] (MIRALAX) 12:00: every Hospita 17 gram 11 other day. l packet spironolact 2023-0 Yes 50mg Q.5D Take 1 Meth dimitri one 3-31 tablet (50 st (ALDACTONE) 12:00: mg total) H ospita 50 MG 11 by mouth 2 l tablet (two) times a day. sucralfate Yes 1g QD Take 10 mL M ethodi (CARAFATE) 07-09 ([address] 100 mg/mL 12:00: total) by Hos alvaro suspension 11 mouth l daily. lipase-prot 2022- No 2{capsu Q.[id number] Take 2 Methodi ease-amylas 07-09 le} [id number] capsules st e (CREON) 10:12: 00:00 3D by mouth 3 H ospita 36,000-114, 45 :00 (three) l 000- times a 180,000 day with unit meals. capsule,del ayed release(DR/ EC) lipase-prot 2022- No 2{capsu Q.[id number] Take 2 Methodi ease-amylas 07-09 le} [id number] capsules st e (CREON) 10:12: 00:00 3D by mouth 3 H ospita 36,000-114, 45 :00 (three) l 000- times a 180,000 day with unit meals. capsule,del ayed release(DR/ EC) torsemide 2022-2022- No 20mg QD Take 1 Metho di (DEMADEX) 07-09 tablet (20 st 20 MG 00:00: 04:59 mg total) Hospit a tablet 00 :00 by mouth l daily for 30 days. lactulose 2022-0 2022- No [...] mouth l daily for 30 days. lactulose 2022-0 2022- No 20mL Q.25D Take 20 mL Methodi (CHRONULAC) 07-09 by mouth 4 s t 10 gram/15 00:00: 00:00 (four) [facility] mL solution 00 :00 times a l day [place] 30 [place] [id number] 10mg Q6H Take 1 Meth dimitri (ROXICODONE 07-09 tablet (10 s t ) 10 MG 00:00: 00:00 mg total) [facility] tablet 00 :00 by mouth l every 6 (six) hours as needed for severe pain .acute pain. Max Daily Amount: 40 mg lipase-prot 2022- No 2{capsu Q.[id number] Take 2 Methodi ease-amylas 07-09 le} [id number] capsules st e (CREON) 00:00: 00:00 3D by mouth 3 H ospita 36,000-114, 00 :00 (three) l 000- times a 180,000 day with unit meals for capsule,del 30 days. ayed release(DR/ EC) lipase-prot No 2{capsu Q.[id number] Take 2 Methodi ease-amylas 07-09 le} [id number] capsules st e (CREON) 00:00: 00:00 3D by mouth 3 H ospita 36,000-114, 00 :00 (three) l 000- times a 180,000 day with unit meals for capsule,del 30 days. ayed release(DR/ EC) [place] 2022- [place] [id number] 5mg Q8H Take 1 Meth dimitri (ROXICODONE 07-01 tablet (5 st ) 5 MG 16:19: 00:00 mg total) Hospi ta immediate 01 :00 by mouth l release every 8 tablet (eight) hours as needed for severe pain .acute pain. Max Daily Amount: 15 mg methocarbam No 500mg Q.16404254 Take 1 Methodi oL 07-01- [id number] tablet st (ROBAXIN) 16:19: 00:00 3D (500 mg [facility] 500 MG 01 :00 total) by l tablet mouth 3 (three) times a day as needed for muscle spasms. oxyCODONE 2022-0 2022- [place] [id number] 5mg Q8H Take 1 Meth dimitri (ROXICODONE -01 07-22 tablet (5 st ) 5 MG 16:19: 00:00 mg total) Hospi ta immediate 01 :00 by mouth l release every 8 tablet (eight) hours as needed for severe pain .acute pain. Max Daily Amount: 15 mg methocarbam 2023-0 2023- No 500mg Q.20085812 Take 1 Methodi oL -01 07- [id number] tablet st (ROBAXIN) 16:19: 00:00 3D (500 mg [facility] 500 MG 01 :00 total) by l tablet mouth 3 (three) times a day as needed for muscle spasms. oxyCODONE 2023-0 Yes [id number] 10mg Q6H Take 2 Metho di (ROXICODONE [...] Q48H Take 1 Method i sulfate 325 3-22 04-[address] (65 FE) MG 00:00: 00:00 [...] vomiting for up to 30 days. methocarbam 2022-2022- No 500mg Q.[id number] Take 1 Methodi oL 06-30-[id number] (ROBAXIN) 00:00: 00:00 3D (500 [...] times a day for 30 days. Ventolin 2022-2022- No 2{puff} Q4H Inhale 2 M ethodi HFA 90 06-30-[address] mcg/actuati 00:00: 00:00 every 4 Ho spita on inhaler 00 :00 (four) l hours as needed for shortness of breath for up to 30 days. ferrous 2022-2022- No 325mg Q48H Take 1 Method i sulfate 325 06-30- tablet st (65 FE) MG 00:00: 04:59 (325 mg Hos alvaro tablet 00 :00 total) by l mouth every other day for 30 days. ondansetron 2022-2022- No 4mg Q8H Take 1 Met hodi (Zofran) 4 06-30-22 tablet (4 st MG tablet 00:00: 04:59 mg total) Ho spita 00 :00 by mouth l every 8 (eight) hours as needed for nausea or vomiting for up to 30 days. methocarbam 2022- No 500mg Q.76153141 Take 1 Methodi oL 06-[id number] (ROBAXIN) 00:00: 04:59 3D (500 [...] Q4H Inhale 2 M ethodi HFA 90 06-30- puffs st mcg/actuati 00:00: 04:59 every 4 Ho spita on inhaler 00 :00 (four) l hours as needed for shortness of breath for up to 30 days. oxyCOD[place] 2022- [place] [id number] 10mg Q6H Take 2 Meth dimitri (ROXICODONE 06-30-[address] ) 5 MG 00:00: 00:00 (10 mg Hospita immediate 00 :00 total) by l release mouth tablet every 6 (six) hours as needed for severe pain .acute pain. Max Daily Amount: 40 mg furosemide 2022- No 40mg QD Take 1 Meth dimitri (Lasix) 40 06-30 03-31 tablet (40 st mg tablet 00:00: 00:00 mg total) Ho spita 00 :00 by mouth l daily for 30 days. furosemide 2022- No 40mg QD Take 1 Meth dimitri (Lasix) 40 3-22 03-31 tablet (40 st mg tablet 00:00: 00:00 mg total) Ho spita 00 :00 by mouth l daily for 30 days. ondansetron 3-0 3- No 4mg Q8H Take 1 Met hodi (Zofran) 4 2-19 -22 tablet (4 st MG tablet 00:00: 00:00 mg total) Ho spita 00 :00 by mouth l every 8 (eight) hours as needed for nausea or vomiting for up to 30 days. ondansetron 3-0 3- No 4mg Q8H Take 1 Met hodi (Zofran) 4 2-27 06-22 tablet (4 st MG tablet 00:00: 00:00 mg total) Ho spita 00 :00 by mouth l every 8 (eight) hours as needed for nausea or vomiting for up to 30 days. oxyCODONE 3-0 3- No [id number] 5mg Q8H Take 1 Meth dimitri (ROXICODONE 2-19 -02 tablet (5 st ) 5 MG 00:00: 05:59 mg total) Hospi ta immediate 00 :00 by mouth l release every 8 tablet (eight) hours as needed for severe pain for up to 10 days .acute pain, chronic pain. Max Daily Amount: 15 mg oxyCODONE 3-0 3- No [id number] 5mg Q8H Take 1 Meth dimitri (ROXICODONE 2-19 03-02 tablet (5 st ) 5 MG 00:00: 05:59 mg total) Hospi ta immediate 00 :00 by mouth l release every 8 tablet (eight) hours as needed for severe pain for up to 10 days .acute pain, chronic pain. Max Daily Amount: 15 mg pantoprazol 3-0 3- No 40mg QD Take 1 Met hodi e 2-10 -09 tablet (40 st (PROTONIX) 15:57: 00:00 mg total) H ospita 40 MG EC 02 :00 by mouth l tablet daily. pantoprazol 2023-0 2023- No 40mg QD Take 1 Met hodi e 2-10 -09 tablet (40 st (PROTONIX) 15:57: 00:00 mg total) H ospita 40 MG EC 02 :00 by mouth l tablet daily. ferrous 2022-2022- No 325mg Q48H Take 1 Method i sulfate 325 2-10 - tablet st (65 FE) MG 00:00: 00:00 (325 mg Hos alvaro tablet 00 :00 total) by l mouth every other day for 30 days. ferrous 2022-0 2022- No 325mg Q48H Take 1 Method i sulfate 325 2-10 - tablet st (65 FE) MG 00:00: 00:00 [...] No 2{puff} Q.5D Inhale 2 Methodi formoterol 05-20- puffs 2 st (Dulera) 00:00: 00:00 (two) [...] mouth l daily for 30 days. mometasone- 2022-0 2023- No 2{puff} Q.5D Inhale 2 Methodi formoterol 2-09 03-[address] (Dulera) 00:00: 00:00 (two) Hospita 200-5 00 :00 times a l mcg/actuati day for 30 on inhaler days. methocarbam 2022- No 500mg Q.25D Take 1 M ethodi oL 05-[address] (ROBAXIN) 11:09: 00:00 (500 mg [facility] 500 MG 58 :00 total) by l tablet mouth 4 (four) times a day. methocarbam 0 2022- No 500mg Q.25D Take 1 M ethodi oL 05-[address] (ROBAXIN) 11:09: 00:00 (500 mg [facility] 500 MG 58 :00 total) by l tablet mouth 4 (four) times a day. alendronate Yes 70mg Q7D Take 1 Meth dimitri (FOSAMAX) 1-12 tablet (70 st 70 MG 00:00: mg total) Hospita tablet 00 by mouth l once a week. Tuesday alendronate 0 Yes 70mg Q7D Take 1 Meth dimitri (FOSAMAX) 1-12 tablet (70 st 70 MG 00:00: mg total) Hospita tablet 00 by mouth l once a week. Tuesday ipratropium 2022- No 3mL 3 mL, Univ ers -albuteroL 04-16 Inhalation it y of (DUONEB) 02:30: 03:21 , ONCE, 1 [place] 0.5 mg-3 00 :00 dose, On Medical mg(2.5 mg [facility] 04/15/22 Bran ch base)/3 mL at 2029, nebulizer VERN solution 3 mL furosemide 2022- No 40mg 40 mg, IV U nivers (LASIX) 04-16 Push, ity of injection 02:30: 02:46 ONCE, 1 [place] 40 mg 00 :00 dose, On Medical Geraldine 04/15/22 Branch at 2029, VERN albuterol 2022- No 2.5mg Q4H Take 3 mL M ethodi (ACCUNEB) 04-16 (2.[address] 2.5 mg /3 00:00: 00:00 total) by Ho spita mL (0.083 00 :00 nebulizati l %) on every 4 nebulizer (four) solution hours as needed for shortness of breath. Ventolin 2022-0 2022- No 2{puff} Q4H Inhale 2 M ethodi HFA 90 04-16-[address] mcg/actuati 00:00: 00:00 every 4 Ho spita on inhaler 00 :00 (four) l hours as needed for shortness of breath. albuterol 2022-2022- No 2.5mg Q4H Take 3 mL M ethodi (ACCUNEB) 04-16- (2.[address] 2.5 mg /3 00:00: 00:00 total) by Ho spita mL (0.083 00 :00 nebulizati l %) on every 4 nebulizer (four) solution hours as needed for shortness of breath. Ventolin 2022-0 2022- No 2{puff} Q4H Inhale 2 M ethodi HFA 90 04-16-[address] mcg/actuati 00:00: 00:00 every 4 Ho spita on inhaler 00 :00 (four) l hours as needed for shortness of breath. furosemide 2022-0 2022- No 20mg Q.5D Take 1 Meth dimitri (LASIX) 20 04-16- tablet (20 st mg tablet 00:00: 00:00 mg total) Ho spita 00 :00 by mouth 2 l (two) times a day. furosemide 2022-0 2022- No 20mg Q.5D Take 1 Meth dimitri [...] daily. [place] solution 04 Medical Branch pantoprazol 0 Yes 40mg Take 40 mg Univers e 1-05 by mouth ity of (PROTONIX) 22:09: daily. [place] 40 mg EC 04 Medical tablet Branch albuterol 2022-0 Yes [id number] 2{puff} Inhale 2 Univers 90 1-05 Puffs ity of mcg/actuati 00:00: every 4 [place] as on inhaler 00 (four) Medical hours as Branch needed for Wheezing or Shortness of Breath. albuterol 2022-0 Yes [id number] 2.5mg Inhale 3 Univers 2.5 mg /3 1-05 mL every 4 ity of mL (0.083 00:00: (four) [place] %) 00 hours. May Medical nebulizer also Branch solution nebulize one extra every 6 hours. albuterol 2022-0 Yes [id number] 2{puff} Inhale 2 Univers 90 1-05 Puffs ity of mcg/actuati 00:00: every 4 [place] as on inhaler 00 (four) Medical hours as Branch needed for Wheezing or Shortness of Breath. albuterol 2022-0 Yes [id number] 2.5mg Inhale 3 Univers 2.5 mg /3 1-05 mL every 4 ity of mL (0.083 00:00: (four) [place] %) 00 hours. May Medical nebulizer also Branch solution nebulize one extra every 6 hours. albuterol 2022-0 Yes [id number] 2{puff} Inhale 2 Univers 90 1-05 Puffs ity of mcg/actuati 00:00: every 4 [place] as on inhaler 00 (four) Medical hours as Branch needed for Wheezing or Shortness of Breath. albuterol 2022-0 Yes [id number] 2.5mg Inhale 3 [facility] 2.5 mg /3 1-05 mL every 4 ity of mL (0.083 00:00: (four) [place] %) 00 hours. May Medical nebulizer also Branch solution nebulize one extra every 6 hours. albuterol 2022-0 Yes [id number] 2{puff} Inhale 2 [facility] 90 1-05 Puffs ity of mcg/actuati 00:00: every 4 [place] as on inhaler 00 (four) Medical hours as Branch needed for Wheezing or Shortness of Breath. albuterol 2022-0 Yes [id number] 2.5mg Inhale 3 [facility] 2.5 mg /3 1-05 mL every 4 ity of mL (0.083 00:00: (four) [place] %) 00 hours. May Medical nebulizer also Branch solution nebulize one extra every 6 hours. albuterol 2022-0 Yes [id number] 2{puff} Inhale 2 [facility] 90 1-05 Puffs ity of mcg/actuati 00:00: every 4 [place] as on inhaler 00 (four) Medical hours as Branch needed for Wheezing or Shortness of Breath. albuterol 2022-0 Yes [id number] 2.5mg Inhale 3 [facility] 2.5 mg /3 1-05 mL every 4 ity of mL (0.083 00:00: (four) [place] %) 00 hours. May Medical nebulizer also Branch solution nebulize one extra every 6 hours. furosemide 2022-0 2023- No [id number] 20mg Take 1 [facility] 20 mg -04-21 tablet by ity of tablet 00:00: 05:59 mouth [place] 00 :00 every Medical morning Branch and evening for 5 days. predniSONE 2023-0 2023- No [id number] 20mg Take 1 [facility] 20 mg 04-1508 tablet by ity of tablet 00:00: 05:59 mouth in [place] 00 :00 the Medical morning Branch and 1 tablet in the evening. Do all this for 2 days. FENTanyl PF 2021-04- No 50ug 50 mcg, Un mar[facility] (SUBLIMAZE 04-10 Slow IV ity o f (PF)) 04:30: 03:33 Push, [place] injection 00 :00 ONCE, 1 Medical 50 mcg dose, On Branch 04/09/22 at 2230, VERN cefTRIAXone 2021-04- No 1000mg 1,000 mg, Univers (ROCEPHIN) 04-10 IV ity of 1,000 mg in 03:00: 03:45 Piggyback, [place] NaCl 0.9% 00 :00 ONCE, 1 Medical (NS) 50 mL dose, On [facility] MINI-BAG 04/09/22 at 2100, Administer over 30 [...] 2100, VERN KCL 10 mEq 2021-04 Yes [id number] 10meq Take 1 [facility] tablet 2-30 [id number] tablet by ity of 00:00: mouth in [place] 00 the Medical morning. Branch ciprofloxac 2021-04 Yes [id number] 500mg Take 1 [facility] in HCl 500 2-30 [id number] tablet by it y of mg tablet 00:00: mouth in [facility] 00 the Medical morning Branch and 1 tablet in the evening. KCL 10 mEq 2021-04 Yes [id number] 10meq Take 1 [facility] tablet 2-30 [id number] tablet by ity of 00:00: mouth in [place] 00 the Medical morning. Branch ciprofloxac 2021-04 Yes [id number] 500mg Take 1 [facility] in HCl 500 2-30 [id number] tablet by it y of mg tablet 00:00: mouth [place] the Medical morning Branch and 1 tablet in the evening. KCL 10 mEq 2021-04 Yes [id number] 10meq Take 1 [facility] tablet 2-30 [id number] tablet by ity of 00:00: mouth in [place] the morning. Branch ciprofloxac 2021-04 Yes [id number] 500mg Take 1 [facility] in HCl 500 2-30 [id number] tablet by it y of mg tablet 00:00: mouth [place] the Medical morning Branch and 1 tablet in the evening. KCL 10 mEq 2021-04 Yes [id number] 10meq Take 1 [facility] tablet 2-30 [id number] tablet by ity of 00:00: mouth in [place] the morning. Branch ciprofloxac 2021-04 Yes [id number] 500mg Take 1 [facility] in HCl 500 2-30 [id number] tablet by it y of mg tablet 00:00: mouth in the Medical morning Branch and 1 tablet in the evening. KCL 10 mEq 2021-04 Yes [id number] 10meq Take 1 [facility] tablet 2-30 [id number] tablet by ity of 00:00: mouth in [place] the morning. Branch ciprofloxac 2021-04 Yes [id number] 500mg Take 1 [facility] in HCl 500 2-30 [id number] tablet by it y of mg tablet 00:00: mouth in [place] the Medical morning Branch and 1 tablet in the evening. KCL 10 mEq 2021-04 Yes [id number] 10meq Take 1 [facility] tablet 2-30 [id number] tablet by ity of 00:00: mouth in [place] the morning. Branch ciprofloxac 2021-04 Yes [id number] 500mg Take 1 [facility] in HCl 500 2-30 [id number] tablet by it y of mg tablet 00:00: mouth in [place] the Medical morning Branch and 1 tablet in the evening. lactulose 2021-04- No 20mL Q.25D Take 20 mL [facility] (CHRONULAC) 2-15 07-09 by mouth 4 s t 10 gram/15 00:00: 00:00 (four) [facility] mL solution 00 :00 times a l day. lactulose 2021-04- No 20mL Q.25D Take 20 mL [facility] (CHRONULAC) 2-15 -31 by mouth 4 s t 10 gram/15 00:00: 00:00 (four) [facility] mL solution 00 :00 times a l day. psyllium 2021-04- No 1{packe Q48H Take 1 [facility] husk 05-0122 t} packet by st sugar-free 00:00: 05:59 mouth [facility] (METAMUCIL) 00 :00 every l 6 gram other day packet for 30 days. psyllium 2021-04- No 1{packe Q48H Take 1 [facility] husk 05-0122 t} packet by st sugar-free 00:00: 05:59 [...] 1{packe Q48H Take 1 [facility] husk 05-0122 t} packet by st sugar-free 00:00: 05:59 mouth [facility] (METAMUCIL) 00 :00 every l 6 gram other day packet for 30 days. psyllium 2021-04- No 1{packe Q48H Take 1 [facility] 05-0122 t} packet by st sugar-free 00:00: 05:59 mouth [facility] (METAMUCIL) 00 :00 every l 6 gram other day packet for 30 days. psyllium 2021-04- No 1{packe Q48H Take 1 [facility] 05-0122 t} packet by st sugar-free 00:00: 05:59 [...] times a day. lipase-prot 2021-04 Yes 1{capsu Q.[id number] Take 1 [facility] 1-19 le} [id number] capsule by st e (CREON) 18:47: 3D [...] times a day. lipase-prot 2021-04 Yes 1{capsu Q.24595493 Take 1 [facility] 1-19 le} [id number] capsule by st e (CREON) 18:47: 3D [...] times a day. lipase-prot 2021-04 Yes 1{capsu Q.54092760 Take 1 [facility] 1-19 le} [id number] capsule by st e (CREON) 18:47: 3D [...] times a day. lipase-prot 2021-04 Yes 1{capsu Q.93526399 Take 1 [facility] 1-19 le} [id number] capsule by st e (CREON) 18:47: 3D mouth 3 Hospi ta 36,000-114, 48 (three) l 000- times a 180,000 day. unit capsule,del ayed release(DR/ EC) ketorolac 2021-04 No 15mg 15 mg, Un[facility] rs (TORADOL) 04-18 Slow IV ity of injection 00:00: 23:59 Push, Q6H, [place] 15 mg 00 :00 4 doses, Medical First dose Branch on Tue02/15/22 at 1800, Last dose on Tue02/16/22 at 1200, Routine iopamidol 2021-04 No [id number] 74mL 74 mL, U nivers (ISOVUE 04-17 [...] 02/15/22 at 1500, Routine ondansetron 2021-04 Yes [id number] 4mg Take 1 [facility] 4 mg 1-07 tablet by ity of disintegrat 00:00: mouth [place] ing tablet 00 every 8 Medica l (eight) Branch hours as needed for Nausea and Vomiting (N/V). dicyclomine 2021-04 Yes [id number] 20mg Take 1 [facility] 20 mg 1-07 tablet by ity of tablet 00:00: mouth 4 [place] 00 (four) Medical times Branch daily. loperamide 2021-04 Yes [id number] 2mg Take 1 [facility]ivers 2 mg 1-07 capsule by ity of capsule 00:00: mouth [place] 00 every 4 Medical (four) Branch hours as needed for Diarrhea. Not to exceed 16mg daily. ondansetron 2021-04 Yes [id number] 4mg Take 1 [facility] 4 mg 1-07 tablet by ity of disintegrat 00:00: mouth [place] ing tablet 00 every 8 Medica l (eight) Branch hours as needed for Nausea and Vomiting (N/V). dicyclomine 2021-04 Yes [id number] 20mg Take 1 [facility] 20 mg 1-07 tablet by ity of tablet 00:00: mouth 4 [place] 00 (four) Medical times Branch daily. loperamide 2021-04 Yes [id number] 2mg Take 1 U nivers 2 mg 1-07 capsule by ity of capsule 00:00: mouth [place] 00 every 4 Medical (four) Branch hours as needed for Diarrhea. Not to exceed 16mg daily. ondansetron 2021-04 Yes [id number] 4mg Take 1 [facility] 4 mg 1-07 tablet by ity of disintegrat 00:00: mouth [place] ing tablet 00 every 8 Medica l (eight) Branch hours as needed for Nausea and Vomiting (N/V). dicyclomine 2021-04 Yes [id number] 20mg Take 1 [facility] 20 mg 1-07 tablet by ity of tablet 00:00: mouth 4 [place] 00 (four) Medical times Branch daily. loperamide 2021-04 Yes [id number] 2mg Take 1 [facility]ivers 2 mg 1-07 capsule by ity of capsule 00:00: mouth [place] 00 every 4 Medical (four) Branch hours as needed for Diarrhea. Not to exceed 16mg daily. ondansetron 2021-04 Yes [id number] 4mg Take 1 [facility] 4 mg 1-07 tablet by ity of disintegrat 00:00: mouth [place] ing tablet 00 every 8 Medica l (eight) Branch hours as needed for Nausea and Vomiting (N/V). dicyclomine 2021-04 Yes [id number] 20mg Take 1 [facility] 20 mg 1-07 tablet by ity of tablet 00:00: mouth 4 [place] 00 (four) Medical times Branch daily. loperamide 2021-04 Yes [id number] 2mg Take 1 U nivers 2 mg 1-07 capsule by ity of capsule 00:00: mouth [place] 00 every 4 Medical (four) Branch hours as needed for Diarrhea. Not to exceed 16mg daily. ondansetron 2021-04 Yes [id number] 4mg Take 1 [facility] 4 mg 1-07 tablet by ity of disintegrat 00:00: mouth [place] ing tablet 00 every 8 Medica l (eight) Branch hours as needed for Nausea and Vomiting (N/V). dicyclomine 2021-04 Yes [id number] 20mg Take 1 [facility] 20 mg 1-07 tablet by ity of tablet 00:00: mouth 4 [place] 00 (four) Medical times Branch daily. loperamide 2021-04 Yes [id number] 2mg Take 1 U nivers 2 mg 1-07 capsule by ity of capsule 00:00: mouth [place] 00 every 4 Medical (four) Branch hours as needed for Diarrhea. Not to exceed 16mg daily. ondansetron 2021-04 Yes [id number] 4mg Take 1 [facility] 4 mg 1-07 tablet by ity of disintegrat 00:00: mouth [place] ing tablet 00 every 8 Medica l (eight) Branch hours as needed for Nausea and Vomiting (N/V). dicyclomine 2021-04 Yes [id number] 20mg Take 1 [facility] 20 mg 1-07 tablet by ity of tablet 00:00: mouth 4 [place] 00 (four) Medical times Branch daily. loperamide 2021-04 Yes [id number] 2mg Take 1 U nivers 2 mg 1-07 capsule by ity of capsule 00:00: mouth [place] 00 every 4 Medical (four) Branch hours as needed for Diarrhea. Not to exceed 16mg daily. ondansetron 2021-04 Yes [id number] 4mg Take 1 [facility] 4 mg 1-07 tablet by ity of disintegrat 00:00: mouth [place] ing tablet 00 every 8 Medica l (eight) Branch hours as needed for Nausea and Vomiting (N/V). dicyclomine 2021-04 Yes [id number] 20mg Take 1 [facility] 20 mg 1-07 tablet by ity of tablet 00:00: mouth 4 [place] 00 (four) Medical times Branch daily. loperamide 2021-04 Yes [id number] 2mg Take 1 [facility] nivers 2 mg 1-07 capsule by ity of capsule 00:00: mouth [place] 00 every 4 Medical (four) Branch hours [...] Q.25D Take 10 mL [facility] (CARAFATE) 0-27 - ([address] 100 mg/mL 00:00: 05:59 [...] Take 1 Meth dimitri (Lasix) 40 - tablet (40 st mg tablet 00:00: [...] 2021-04 1{capsu QD Take 1 [facility] sulfate 0-27 -27 le} capsule by st (ZINCATE) 00:00: 05:59 mouth [facility] 50 mg zinc 00 :00 daily for l (220 mg) 30 days. capsule HYDROcodone 2021-04 1{tbl} Q4H Take 1 [facility] -acetaminop 0-27 11-[address] hen (SYRACUSE) 00:00: 05:59 mouth [facility] 10-325 mg 00 :00 every 4 l per tablet (four) hours as needed for severe pain for up to 10 days .acute pain. Max Daily Amount: 6 tablets HYDROcodone 2021-04 1{tbl} Q4H Take 1 [facility] -acetaminop 0-27 11-[address] hen (SYRACUSE) 00:00: 05:59 mouth [facility] 10-325 mg 00 :00 every 4 l per tablet (four) hours as needed for severe pain for up to 10 days .acute pain. Max Daily Amount: 6 tablets HYDROcodone 2021-04 1{tbl} Q4H Take 1 [facility] -acetaminop 0-27 11-[address] [facility] ([employer]) 00:00: 05:59 mouth [facility] 10-325 mg 00 :00 every 4 l per tablet (four) hours as needed for severe pain for up to 10 days .acute pain. Max Daily Amount: 6 tablets HYDROcodone 2021-04 1{tbl} Q4H Take 1 [facility] -acetaminop 0-27 11-[address] [facility]) 00:00: 05:59 mouth [facility] 10-325 mg 00 :00 every 4 l per tablet (four) hours as needed for severe pain for up to 10 days .acute pain. Max Daily Amount: 6 tablets HYDROcodone 2021-04- No [id number] 1{tbl} Q4H Take 1 [facility] -acetaminop 0-27 11-[address] [facility]) 00:00: 05:59 mouth [facility] 10-325 mg 00 :00 every 4 l per tablet (four) hours as needed for severe pain for up to 10 days .acute pain. Max Daily Amount: 6 tablets HYDROcodone 2021-04- No [id number] 1{tbl} Q4H Take 1 [facility] -acetaminop 0-27 11-07 tablet by [employer] ([employer]) 00:00: 05:59 mouth [facility] 10-325 mg [...] l (two) times a day. famotidine 2021-04 No 20mg Q.5D Take 1 Meth dimitri [...] 2 (two) times a day. polyethylen 2021-0 2- No 17g QD Take 17 g [facility] e glycol 9-27 10-[address] (MIRALAX) 00:00: 04:59 daily for [facility] 17 gram 00 :00 30 days. l packet polyethylen 2021-0 2- No 17g QD Take 17 g Method[facility] [...] 40mg QD Take 1 Met hodi e 01-04-27 tablet (40 st (PROTONIX) 00:00: 04:59 mg [...] times a day. pancrelipas 2021- No 2{capsu Q.53363498 Take 2 [facility], 12-18 10-10 le} [id number] capsules st lipase-prot 00:00: 04:59 3D by mouth 3 [facility] 00 :00 (three) l e, (CREON) times a 6,000-,00 day with 0 -30,000 meals for unit 30 days. capsule,del ayed release(DR/ EC) capsule methocarbam 2021- No 500mg Q.87176291 Take 1 [facility] oL 12-[id number] (ROBAXIN) 00:00: 04:59 3D (500 mg [facility] 500 MG 00 :00 total) by l tablet mouth 3 (three) times a day as needed (abdominal cramping) for up to 30 days. pancrelipas 2021- No 2{capsu Q.65051749 Take 2 [facility] e, 12-18 le} [id number] capsules st lipase-prot 00:00: 04:59 3D by mouth 3 [facility] 00 :00 (three) l e, (CREON) times a 6,000-19,00 day with 0 -30,000 meals for unit 30 days. capsule,del ayed release(DR/ EC) capsule methocarbam 2021- No 500mg Q.97975812 Take 1 [facility] o[facility] 12-[id number] (ROBAXIN) 00:00: 04:59 3D (500 mg [facility] 500 MG 00 :00 total) by l tablet mouth 3 (three) times a day as needed (abdominal cramping) for up to 30 days. pancrelipas 2021- No 2{capsu Q.79463153 Take 2 [facility] e, 12-18 le} [id number] capsules st lipase-prot 00:00: 04:59 3D by mouth 3 [facility] 00 :00 (three) l e, (CREON) times a 6,000-19,00 day with 0 -30,000 meals for unit 30 days. capsule,del ayed release(DR/ EC) capsule methocarbam 2021- No 500mg Q.10450359 Take 1 [facility] o[facility] 12-[id number] (ROBAXIN) 00:00: 04:59 3D (500 mg [facility] 500 MG 00 :00 total) by l tablet mouth 3 (three) times a day as needed (abdominal cramping) for up to 30 days. pancrelipas 2021- No 2{capsu Q.19100074 Take 2 [facility] e, 12-18 le} [id number] capsules st lipase-prot 00:00: 04:59 3D by mouth 3 [facility] 00 :00 (three) l e, (CREON) times a 6,000-19,00 day with 0 -30,000 meals for unit 30 days. capsule,del ayed release(DR/ EC) capsule methocarbam 2021- No 500mg Q.57920246 Take 1 [facility] o[facility] 12-[id number] (ROBAXIN) 00:00: 04:59 3D (500 mg [facility] 500 MG 00 :00 total) by l tablet mouth 3 (three) times a day as needed (abdominal cramping) for up to 30 days. pancrelipas 2021- No 2{capsu Q.42490377 Take 2 Method[facility] e, 12-18 le} [id number] capsules st lipase-prot 00:00: 04:59 3D by mouth 3 [facility] 00 :00 (three) l e, (CREON) times a 6,000-19,00 day with 0 -30,000 meals for unit 30 days. capsule,del ayed release(DR/ EC) capsule methocarbam 2021- No 500mg Q.00047851 Take 1 [facility] o[facility] 12-[id number] (ROBAXIN) 00:00: 04:59 3D (500 mg [facility] 500 MG 00 :00 total) by l tablet mouth 3 (three) times a day as needed (abdominal cramping) for up to 30 days. pancrelipas 2021- No 2{capsu Q.93856603 Take 2 [facility] e, 12-18 le} [id number] capsules st lipase-prot 00:00: 04:59 3D by mouth 3 [facility] 00 :00 (three) l e, (CREON) times a 6,000-19,00 day with 0 -30,000 meals for unit 30 days. capsule,del ayed release(DR/ EC) capsule methocarbam 2021- No 500mg Q.19024532 Take 1 [facility] 12-[id number] (ROBAXIN) 00:00: 04:59 3D (500 mg [facility] 500 MG 00 :00 total) by l tablet mouth 3 (three) times a day as needed (abdominal cramping) for up to 30 days. pancrelipas 2021- No 2{capsu Q.70280448 Take 2 [facility] e, 12-18 le} [id number] capsules st lipase-prot 00:00: 04:59 3D by mouth 3 [facility] 00 :00 (three) l e, (CREON) times a 6,000-19,00 day with 0 -30,000 meals for unit 30 days. capsule,del ayed release(DR/ EC) capsule methocarbam 2021- No 500mg Q.21016169 Take 1 [facility] o[facility] 12-[id number] (ROBAXIN) 00:00: 04:59 3D (500 mg [facility] 500 MG 00 :00 total) by l tablet mouth 3 (three) times a day as needed (abdominal cramping) for up to 30 days. pancrelipas 2021- No 2{capsu Q.66452360 Take 2 [facility] e, 12-18 le} [id number] capsules st lipase-prot 00:00: 04:59 3D by mouth 3 [facility] 00 :00 (three) l e, (CREON) times a 6,000-19,00 day with 0 -30,000 meals for unit 30 days. capsule,del ayed release(DR/ EC) capsule methocarbam 2021- No 500mg Q.84021504 Take 1 [facility] o[facility] 12-[id number] (ROBAXIN) 00:00: 04:59 3D (500 mg [facility] 500 MG 00 :00 total) by l tablet mouth 3 (three) times a day as needed (abdominal cramping) for up to 30 days. pancrelipas 2021- No 2{capsu Q.76203745 Take 2 [facility] e, 12-18 le} [id number] capsules st lipase-prot 00:00: 04:59 3D by mouth 3 [facility] 00 :00 (three) l e, (CREON) times a 6,000-19,00 day with 0 -30,000 meals for unit 30 days. capsule,del ayed release(DR/ EC) capsule methocarbam No 500mg Q.15261271 Take 1 [facility] o[facility] 12-[id number] (ROBAXIN) 00:00: 04:59 3D (500 mg [facility] 500 MG 00 :00 total) by l tablet mouth 3 (three) times a day as needed (abdominal cramping) for up to 30 days. HYDROcodone 2021- No 1{tbl} Q6H Take 1 [facility] -acetaminop 12-[address] [facility] ([employer]) 00:00: 00:00 mouth [facility] 10-325 mg 00 :00 every 6 l per tablet (six) hours as needed for severe pain for up to 10 days .acute pain. Max Daily Amount: 4 tablets HYDROcodone 2021-2021- [place] [id number] 1{tbl} Q6H Take 1 [facility] -acetaminop 12-[address] [facility] ([employer]) 00:00: 00:00 mouth [facility] 10-325 mg 00 :00 every 6 l per tablet (six) hours as needed for severe pain for up to 10 days .acute pain. Max Daily Amount: 4 tablets HYDROcodone 2021-0 2021- No [id number] 1{tbl} Q6H Take 1 [facility] -acetaminop 12-[address] [facility] ([employer]) 00:00: 00:00 mouth [facility] 10-325 mg 00 :00 every 6 l per tablet (six) hours as needed for severe pain for up to 10 days .acute pain. Max Daily Amount: 4 tablets HYDROcodone 2021-0 2021- No [id number] 1{tbl} Q6H Take 1 [facility] -acetaminop 12-[address] [facility] ([employer]) 00:00: 00:00 mouth [facility] 10-325 mg 00 :00 every 6 l per tablet (six) hours as needed for severe pain for up to 10 days .acute pain. Max Daily Amount: 4 tablets HYDROcodone 2022-0 2021- No [id number] 1{tbl} Q6H Take 1 [facility] -acetaminop 12-[address] [facility] ([facility]) 00:00: 00:00 mouth [facility] 10-325 mg 00 :00 every 6 l per tablet (six) hours as needed for severe pain for up to 10 days .acute pain. Max Daily Amount: 4 tablets HYDROcodone 2022-0 2021- No [id number] 1{tbl} Q6H Take 1 [facility] -acetaminop 12-[address] [facility] ([facility]) 00:00: 00:00 mouth [facility] 10-325 mg 00 :00 every 6 l per tablet (six) hours as needed for severe pain for up to 10 days .acute pain. Max Daily Amount: 4 tablets HYDROcodone 2-0 2021- No [id number] 1{tbl} Q6H Take 1 [facility] -acetaminop 12-[address] [facility] ([employer]) 00:00: 00:00 mouth [facility] 10-325 mg 00 :00 every 6 l per tablet (six) hours as needed for severe pain for up to 10 days .acute pain. Max Daily Amount: 4 tablets HYDROcodone 2-0 2021- No [id number] 1{tbl} Q6H Take 1 [facility] -acetaminop 12-[address] [facility] ([employer]) 00:00: 00:00 mouth [facility] 10-325 mg 00 :00 every 6 l per tablet (six) hours as needed for severe pain for up to 10 days .acute pain. Max Daily Amount: 4 tablets HYDROcodone 2022-0 2021- No [id number] 1{tbl} Q6H Take 1 [facility] -acetaminop 12-[address] [facility] ([employer]) 00:00: 04:59 mouth [facility] 10-325 mg [...] l (220 mg) 30 days. capsule zinc 0 2021- No 1{capsu QD Take 1 [facility] [...] 30 days. capsule lactulose 2021-2021- No 20g Q24H Take 30 [...] 4mg Q8H Take 1 [facility] ODT 8-25 09-28 tablet (4 st (ZOFRAN-ODT 00:00: 00:00 mg [...] l tablet daily for 30 days. spironolact 2021-2- No 50mg [...] Q.5D Take 1 [facility] one -03 01- tablet (50 st (ALDACTONE) 00:00: 00:00 mg [...] for up to 30 days. pantoprazol 2021-0 2021- No 40mg [...] 4mg Q8H Take 1 [facility] ODT 12-03-25 tablet (4 st (ZOFRAN-ODT 00:00: 04:59 mg [...] vomiting for up to 30 days. sucralfate 1g Q.25D Take 10 mL [facility] (CARAFATE) 12-03 ([address] 100 mg/mL 00:00: 04:59 total) by [facility] suspension 00 :00 mouth 4 l (four) times a day before meals and nightly for 30 days. HYDROcodone 2021- No 1{tbl} Q6H Take 1 [facility] -acetaminop 8-25 - tablet by [facility] ([employer]) 00:00: 00:00 mouth [facility] 10-325 mg 00 :00 every 6 l per tablet (six) hours as needed for severe pain for up to 10 days .acute pain. Max Daily Amount: 4 tablets HYDROcodone No 1{tbl} Q6H Take 1 [facility] -acetaminop 8-03 01- tablet by [facility] ([employer]) 00:00: 00:00 mouth [facility] 10-325 mg 00 :00 every 6 l per tablet (six) hours as needed for severe pain for up to 10 days .acute pain. Max Daily Amount: 4 tablets HYDROcodone 1{tbl} Q6H Take 1 [facility] -acetaminop 8-25 - tablet by [facility] ([employer]) 00:00: 00:00 mouth [facility] 10-325 mg 00 :00 every 6 l per tablet (six) hours as needed for severe pain for up to 10 days .acute pain. Max Daily Amount: 4 tablets HYDROcodone 2021-0 No 1{tbl} Q6H Take 1 [facility] -acetaminop 8-25 - tablet [facility] ([employer]) 00:00: 00:00 mouth [facility] 10-325 mg 00 :00 every 6 l per tablet (six) hours as needed for severe pain for up to 10 days .acute pain. Max Daily Amount: 4 [place] [id number] 1{tbl} Q6H Take 1 [facility] -acetaminop 8-25 09-[address] [facility] ([employer]) 00:00: 00:00 mouth [facility] 10-325 mg 00 :00 every 6 l per tablet (six) hours as needed for severe pain for up to 10 days .acute pain. Max Daily Amount: 4 tablets HYDROcodone 2022-0 2021- [place] [id number] 1{tbl} Q6H Take 1 [facility] -acetaminop 8-25 -[address] [facility] ([employer]) 00:00: 00:00 mouth [facility] 10-325 mg 00 :00 every 6 l per tablet (six) hours as needed for severe pain for up to 10 days .acute pain. Max Daily Amount: 4 tablets HYDROcodone 2022-0 2021- No [id number] 1{tbl} Q6H Take 1 [facility] -acetaminop 8-25 - tablet by [facility] ([employer]) 00:00: 00:00 mouth [facility] 10-325 mg 00 :00 every 6 l per tablet (six) hours as needed for severe pain for up to 10 days .acute pain. Max Daily Amount: 4 tablets HYDROcodone 2022-0 2021- No [id number] 1{tbl} Q6H Take 1 [facility] -acetaminop 8-25 -[address] [facility] ([employer]) 00:00: 00:00 mouth [facility] 10-325 mg 00 :00 every 6 l per tablet (six) hours as needed for severe pain for up to 10 days .acute pain. Max Daily Amount: 4 tablets HYDROcodone 2022-0 2021- [place] [id number] 1{tbl} Q6H Take 1 [facility] -acetaminop 8-25 -[address] [facility] ([employer]) 00:00: 00:00 mouth [facility] 10-325 mg 00 :00 every 6 l per tablet (six) hours as needed for severe pain for up to 10 days .acute pain. Max Daily Amount: 4 tablets HYDROcodone 2022-0 2- No [id number] 1{tbl} Q6H Take 1 [facility] -acetaminop 8-25 09-[address] [facility] ([employer]) 00:00: 04:59 mouth [facility] 10-325 mg 00 :00 every 6 l per tablet (six) hours as needed for severe pain for up to 10 days .acute pain. Max Daily Amount: 4 tablets pancrelipas 2021-2- No 1{capsu Q.26172629 Take 1 [facility], 8-18 08-18 le} [id number] capsule by [address] lipase-prot 20:41: 00:00 3D mouth 3 [facility] 22 :00 (three) l e, (CREOND) times a 12,000-38,0 day with 00 -60,000 meals. unit capsule,del ayed release(DR/ EC) capsule pancrelipas 2021-2- No 1{capsu Q.22843627 Take 1 [facility] e, 8- 08-18 le} [id number] capsule by st lipase-prot 20:41: 00:00 3D mouth 3 [facility] 22 :00 (three) l e, (CREOND) times a 12,000-38,0 day with 00 -60,000 meals. unit capsule,del ayed release(DR/ EC) capsule pancrelipas 2021-2- No 1{capsu Q.52333483 Take 1 [facility], 8- 08-18 le} [id number] capsule [address] lipase-prot 20:41: 00:00 3D mouth 3 [facility] 22 :00 (three) l e, (CREOND) times a 12,000-38,0 day with 00 -60,000 meals. unit capsule,del ayed release(DR/ EC) capsule pancrelipas 2-2- No 1{capsu Q.06517079 Take 1 [facility] e, 8-18 08-18 le} [id number] capsule by st lipase-prot 20:41: 00:00 3D mouth 3 [facility] ease-amylas 22 :00 (three) l e, (CREOND) times a 12,000-38,0 day with 00 -60,000 meals. unit capsule,del ayed release(DR/ EC) capsule pancrelipas 2021-2- No 1{capsu Q.[id number] Take 1 Methodi e, 8-18 08-18 le} [id number] capsule by st lipase-prot 20:41: 00:00 3D mouth 3 Ho [facility] ease-amylas 22 :00 (three) l e, (CREOND) times a 12,000-38,0 day with 00 -60,000 meals. unit capsule,del ayed release(DR/ EC) capsule pancrelipas 2021-2- No 1{capsu Q.[id number] Take 1 Methodi e, 8-18 08-18 le} [id number] capsule by st lipase-prot 20:41: 00:00 3D mouth 3 [facility] ease-amylas 22 :00 (three) l e, (CREOND) times a 12,000-38,0 day with 00 -60,000 meals. unit capsule,del ayed release(DR/ EC) capsule pancrelipas 2021-2- No 1{capsu Q.[id number] Take 1 Methodi e, 8-18 08-18 le} [id number] capsule by st lipase-prot 20:41: 00:00 3D mouth 3 [facility] ease-amylas 22 :00 (three) l e, (CREOND) times a 12,000-38,0 day with 00 -60,000 meals. unit capsule,del ayed release(DR/ EC) capsule pancrelipas 2021-2021- No 1{capsu Q.[id number] Take 1 Methodi e, 8-18 08-18 le} [id number] capsule by st lipase-prot 20:41: 00:00 3D mouth 3 [facility] ease-amylas 22 :00 (three) l e, (CREOND) times a 12,000-38,0 day with 00 -60,000 meals. unit capsule,del ayed release(DR/ EC) capsule pancrelipas 2021-2021- No 1{capsu Q.[id number] Take 1 Methodi e, 8-18 08-18 le} [id number] capsule by st lipase-prot 20:41: 00:00 3D mouth 3 [facility] ease-amylas 22 :00 (three) l e, (CREOND) times a 12,000-38,0 day with 00 -60,000 meals. unit capsule,del ayed release(DR/ EC) capsule pancrelipas 2021-2021- No 1{capsu Q.[id number] Take 1 Methodi e, 8-18 08-18 le} [id number] capsule by st lipase-prot 20:41: 00:00 3D [...] 06 :00 l spironolact 2021-0 2022- No 50mg Q.5D Take [...] 2021-2021- No 1{tbl} 1 tablet, Univers en-codeine 6 06- Oral, ity of (TYLENOL 06:00: 05:02 [...] 09/29/21 at 0100, Routine naproxen 2021-0 Yes [id number] 500mg Take 1 Univers (NAPROSYN) 6-20 9104 tablet by ity of 500 mg 00:00: mouth 2 [place] tablet 00 (two) Medical times Branch daily with meals. naproxen 2021-0 Yes [id number] 500mg Take 1 Univers (NAPROSYN) 6-20 9104 tablet by ity of 500 mg 00:00: mouth 2 [place] tablet 00 (two) Medical times Branch daily with meals. naproxen 2021-0 Yes [id number] 500mg Take 1 Univers (NAPROSYN) 6-20 9104 tablet by ity of 500 mg 00:00: mouth 2 [place] tablet 00 (two) Medical times Branch daily with meals. naproxen 2021-0 Yes [id number] 500mg Take 1 Univers (NAPROSYN) 6-20 9104 tablet by ity of 500 mg 00:00: mouth 2 [place] tablet 00 (two) Medical times Branch daily with meals. naproxen 2021-0 Yes [id number] 500mg Take 1 Univers (NAPROSYN) 6-20 9104 tablet by ity of 500 mg 00:00: mouth 2 [place] tablet 00 (two) Medical times Branch daily with meals. naproxen 2021-0 Yes [id number] 500mg Take 1 Univers (NAPROSYN) 6-20 9104 tablet by ity of 500 mg 00:00: mouth 2 [place] tablet 00 (two) Medical times Branch daily with meals. naproxen 2021-0 Yes [id number] 500mg Take 1 Univers (NAPROSYN) 6-20 9104 tablet by ity of 500 mg 00:00: mouth 2 [place] tablet 00 (two) Medical times Branch daily with meals. naproxen 2021-0 Yes [id number] 500mg Take 1 Univers (NAPROSYN) 6-20 9104 [...] 04/02/21 at 1445, VERN ondansetron 2020-04 Yes [id number] 4mg Take 1 Univers 4 mg 2-23 tablet by ity of disintegrat 00:00: mouth [place] ing tablet 00 every 8 Medica l (eight) Branch hours as needed for Nausea and Vomiting (N/V). ondansetron 2020-04 Yes [id number] 4mg Take 1 Univers 4 mg 2-23 tablet by ity of disintegrat 00:00: mouth [place] ing tablet 00 every 8 Medica l (eight) Branch hours as needed for Nausea and Vomiting (N/V). ondansetron 2020-04 Yes [id number] 4mg Take 1 Univers 4 mg 2-23 tablet by ity of disintegrat 00:00: mouth [place] ing tablet 00 every 8 Medica l (eight) Branch hours as needed for Nausea and Vomiting (N/V). ondansetron 2020-04 Yes [id number] 4mg Take 1 Univers 4 mg 2-23 tablet by ity of disintegrat 00:00: mouth [place] ing tablet 00 every 8 Medica l (eight) Branch hours as needed for Nausea and Vomiting (N/V). ondansetron 2020-04 Yes [id number] 4mg Take 1 Univers 4 mg 2-23 tablet by ity of disintegrat 00:00: mouth [place] ing tablet 00 every 8 Medica l (eight) Branch hours as needed for Nausea and Vomiting (N/V). ondansetron 2020-04 Yes [id number] 4mg Take 1 Univers 4 mg 2-23 tablet by ity of disintegrat 00:00: mouth [place] ing tablet 00 every 8 Medica l (eight) Branch hours as needed for Nausea and Vomiting (N/V). ondansetron 2020-04 Yes [id number] 4mg Take 1 Univers 4 mg 2-23 tablet by ity of disintegrat 00:00: mouth [place] ing tablet 00 every 8 Medica l (eight) Branch hours as needed for Nausea and Vomiting (N/V). ondansetron 2020-04 Yes [id number] 4mg Take 1 Univers 4 mg 2-23 tablet by ity of disintegrat 00:00: mouth [place] ing tablet 00 every 8 Medica l (eight) Branch hours as needed for Nausea and Vomiting (N/V). ondansetron 2020-04 Yes [id number] 4mg Take 1 Univers 4 mg 2-23 tablet by ity of disintegrat 00:00: mouth [place] ing tablet 00 every 8 Medica l (eight) Branch hours as needed for Nausea and Vomiting (N/V). ondansetron 2020-04 Yes [id number] 4mg Take 1 Univers 4 mg 2-23 tablet by ity of disintegrat 00:00: mouth [place] ing tablet 00 every 8 Medica l (eight) Branch hours as needed for Nausea and Vomiting (N/V). ondansetron 2020-04 Yes [id number] 4mg Take 1 Univers 4 mg 2-23 [...] 100mg Q.5D Take 1 Metho di sodium 04-22- capsule st (Colace) 00:00: 05:59 (100 mg Hospi ta 100 MG 00 :00 total) by l capsule mouth 2 (two) times a day for 30 days. lactulose 0 2021- No 20g Q24H Take [...] Take 30 mL M ethodi 10 gram/15 718 08-25 ([address] mL (15 mL) 00:00: 00:00 total) by H ospita solution 00 :00 mouth l daily as needed (2 to 3 soft stools per day). lactulose 2021- No 20g Q24H Take 30 mL M ethodi 10 gram/15 718 08-25 ([address] mL (15 mL) 00:00: 00:00 total) by H ospita solution 00 :00 mouth l daily as needed (2 to 3 soft stools per day). cholecalcif 2020- No [id number] 2000U Take 2 Univers nuno, 6-26 07-27 tablets by ity of vitamin D3, 00:00: 04:59 [place] 25 mcg 00 :00 daily for Medical (1,000 30 days. Branch unit) tablet cyanocobala 2020- No [id number] 1000ug inject 1 Univers min 1,000 6-26 07-27 mL under ity o f mcg/mL 00:00: 04:59 the skin [place] injection 00 :00 every 24 Medica l (twenty-fo Branch ur) hours for 30 days. KCL 20 mEq 2020- No [id number] 20meq Take 1 Univers tablet 6-26 07-27 tablet by ity of 00:00: 04:59 mouth [place] 00 :00 daily for Medical 30 days. Branch cholecalcif 2020- No [id number] 2000U Take 2 Univers nuno, 10-04-27 tablets by ity of vitamin D3, 00:00: 04:59 mouth [place] 25 mcg 00 :00 daily for Medical (1,000 30 days. Branch unit) tablet cyanocobala 2020- No [id number] 1000ug inject 1 Univers min 1,000 - 07-27 mL under ity o f mcg/mL 00:00: 04:59 the skin [place] injection 00 :00 every 24 Medica l (twenty-fo Branch ur) hours for 30 days. KCL 20 mEq 2020- No [id number] 20meq Take 1 Univers tablet 10-04-27 tablet [...] ity o f mL oral 13:10: daily. [place] solution 25 Medical Branch pantoprazol Yes 40mg Take 40 mg Univers e 6-25 by mouth ity of (PROTONIX) 13:10: daily. [place] 40 mg EC 25 Medical tablet Branch lactulose Yes 30mL Take 30 mL Un marline 10 gram/15 6-25 by mouth ity o f mL oral 13:10: daily. [place] solution 25 Medical Branch pantoprazol Yes 40mg Take 40 mg Univers e 6-25 by mouth ity of (PROTONIX) 13:10: daily. [place] 40 mg EC 25 Medical tablet Branch proMETHazin Yes 12.5mg 12.5 mg, Univers e 6-25 Oral, ity of (PHENERGAN) 04:17: Q6HPRN, Quang as tablet 12.5 34 Starting Medi molly mg Geraldine Branch 10/02/20 at 2317, Until Discontinu ed, Routine, Nausea and Vomiting (N/V), N/V unresponsi ve to Ondansetro n proMETHazin Yes [id number] 12.5mg Take 1 Univers e 12.5 mg 6-25 tablet by ity o f tablet 00:00: mouth [place] 00 every 6 Medical (six) Branch hours as needed for Nausea and Vomiting (N/V) or N/V unresponsi ve to Ondansetro n. proMETHazin Yes [id number] 12.5mg Take 1 Univers e 12.5 mg 6-25 tablet by ity o f tablet 00:00: mouth [place] 00 every 6 Medical (six) Branch hours as needed for Nausea and Vomiting (N/V) or N/V unresponsi ve to Ondansetro n. proMETHazin Yes [id number] 12.5mg Take 1 Univers e 12.5 mg 6-25 tablet by ity o f tablet 00:00: mouth [place] 00 every 6 Medical (six) Branch hours as needed for Nausea and Vomiting (N/V) or N/V unresponsi ve to Ondansetro n. proMETHazin Yes [id number] 12.5mg Take 1 Univers e 12.5 mg 6-25 tablet by ity o f tablet 00:00: mouth [place] 00 every 6 Medical (six) Branch hours as needed for Nausea and Vomiting (N/V) or N/V unresponsi ve to Ondansetro n. proMETHazin Yes [id number] 12.5mg Take 1 Univers e 12.5 mg 6-25 tablet by ity o f tablet 00:00: mouth [place] 00 every 6 Medical (six) Branch hours as needed for Nausea and Vomiting (N/V) or N/V unresponsi ve to Ondansetro n. proMETHazin Yes [id number] 12.5mg Take 1 Univers e 12.5 mg 6-25 tablet by ity o f tablet 00:00: mouth [place] 00 every 6 Medical (six) Branch hours as needed for Nausea and Vomiting (N/V) or N/V unresponsi ve to Ondansetro n. proMETHazin Yes [id number] 12.5mg Take 1 Univers e 12.5 mg 6-25 tablet by ity o f tablet 00:00: mouth [place] 00 every 6 Medical (six) Branch hours as needed for Nausea and Vomiting (N/V) or N/V unresponsi ve to Ondansetro n. proMETHazin Yes [id number] 12.5mg Take 1 Univers e 12.5 mg 6-25 tablet by ity o f tablet 00:00: mouth [place] 00 every 6 Medical (six) Branch hours as needed for Nausea and Vomiting (N/V) or N/V unresponsi ve to Ondansetro n. proMETHazin Yes [id number] 12.5mg Take 1 Univers e 12.5 mg 6-25 tablet by ity o f tablet 00:00: mouth [place] 00 every 6 Medical (six) Branch hours as needed for Nausea and Vomiting (N/V) or N/V unresponsi ve to Ondansetro n. proMETHazin Yes [id number] 12.5mg Take 1 Univers e 12.5 mg 6-25 tablet by ity o f tablet 00:00: mouth [place] 00 every 6 Medical (six) Branch hours as needed for Nausea and Vomiting (N/V) or N/V unresponsi ve to Ondansetro n. proMETHazin Yes [id number] 12.5mg Take 1 Univers e 12.5 mg 6-25 tablet by ity o f tablet 00:00: mouth [place] 00 every 6 Medical (six) Branch hours as needed for Nausea and Vomiting (N/V) or N/V unresponsi ve to Ondansetro n. proMETHazin Yes [id number] 12.5mg Take 1 Univers e 12.5 mg 6-25 tablet by ity o f tablet 00:00: mouth [place] 00 every 6 Medical (six) Branch hours as needed for Nausea and Vomiting (N/V) or N/V unresponsi ve to Ondansetro n. proMETHazin Yes [id number] 12.5mg Take 1 Univers e 12.5 mg 6-25 tablet by ity o f tablet 00:00: mouth [place] 00 every 6 Medical (six) Branch hours as needed for Nausea and Vomiting (N/V) or N/V unresponsi ve to Ondansetro n. proMETHazin Yes [id number] 12.5mg Take 1 Univers e 12.5 mg 6-25 tablet by ity o f tablet 00:00: mouth [place] 00 every 6 Medical (six) Branch hours as needed for Nausea and Vomiting (N/V) or N/V unresponsi ve to Ondansetro n. proMETHazin Yes [id number] 12.5mg Take 1 Univers e 12.5 mg 6-25 tablet by ity o f tablet 00:00: mouth [place] 00 every 6 Medical (six) Branch hours as needed for Nausea and Vomiting (N/V) or N/V unresponsi ve to Ondansetro n. proMETHazin Yes [id number] 12.5mg Take 1 Univers e 12.5 mg 6-25 tablet by ity o f tablet 00:00: mouth [place] 00 every 6 Medical (six) Branch hours as needed for Nausea and Vomiting (N/V) or N/V unresponsi ve to Ondansetro n. furosemide 0 2020- No [id number] 40mg Take 1 Univers 40 mg 6-25 07-26 tablet by ity of tablet 00:00: 04:59 mouth [place] 00 :00 every Medical morning Branch and evening for 30 days. lipase-prot 2020- No [id number] 2{capsu Take 2 Univers ease-amylas 6-25 07-26 le} capsules ity of e 00:00: 04:59 by mouth 3 [place] 12,000-38,0 00 :00 (three) Medic al 00 -60,000 times Branch unit daily with capsule meals for 30 days. lactobacill 2020- No [id number] .5mg Take 1 Univers us 6-25 07-26 tablet by ity of acidophilus 00:00: 04:59 mouth 2 [place] 00 :00 (two) Medical times Branch daily for 30 days. furosemide 2020- No [id number] 40mg Take 1 Univers 40 mg 6-25 07-26 tablet by ity of tablet 00:00: 04:59 mouth [place] 00 :00 every Medical morning Branch and evening for 30 days. lipase-prot 2020- No [id number] 2{capsu Take 2 Univers ease-amylas 6-25 07-26 le} capsules ity of e 00:00: 04:59 by mouth 3 [place] 12,000-38,0 00 :00 (three) Medic al 00 -60,000 times Branch unit daily with capsule meals for 30 days. lactobacill 2020- No [id number] .5mg Take 1 Univers us 6-25 07-26 tablet by ity of acidophilus 00:00: 04:59 mouth 2 [place] 00 :00 (two) Medical times Branch daily for 30 days. vancomycin 2020- No [id number] 125mg Take 1 Univers 125 mg 6-25 07-06 capsule by ity of capsule 00:00: 04:59 mouth 4 [place] 00 :00 (four) Medical times Branch daily for 10 days. vancomycin 2020- No [id number] 125mg Take 1 Univers 125 mg 6-25 07-06 capsule by ity of capsule 00:00: 04:59 mouth 4 [place] 00 :00 (four) Medical times Branch daily for 10 days. HYDROcodone 2020- No [id number] 1{tbl} Take 1 U nivers -acetaminop 6-02 11- tablet by it y of hen 5-325 [...] Indication s: acute pain cephALEXin 2020- No [id number] 500mg Take 1 Univers 500 mg -10-09 capsule by ity of capsule 00:00: 04:59 mouth 4 [place] 00 :00 (four) Medical times Branch daily for 5 days. cephALEXin 2020- No [id number] 500mg Take 1 Univers 500 mg 10-03 [...] (1/2NS) 1 L 21:00: 21:15 at 100 Qaung as + KCL 20 00 :40 mL/hr, [...] First dose [place] tablet 0.5 00 on [facility] Medical mg 09/29/20 at Branch 0915, [...] First dose Me dical 00 -60,000 on [facility] Branch unit 09/29/20 at capsule 2 [...] :00 s, ONCE, 1 Medic al dose, Tue Branch 09/29/20 at 0245, Routine FENTanyl PF 2020- No 50ug 50 mcg, Un marline (SUBLIMAZE 09-29 Slow IV ity o f (PF)) 07:30: 06:27 Push, [place] injection 00 :00 ONCE, 1 Medical 50 mcg dose, [facility] Branch 09/29/20 at 0230, Routine piperacilli [...] Nausea and Vomiting (N/V) iopamidol 2020- No [id number] 100mL 100 mL, Univers (ISOVUE 09-29 Intravenou [...] Spirit 00:00: 00:00 - [facility] 00 :00 [facility] flu vaccine 0 2020- No .5mL 0.5 mL, Un [place] 6 months 08-10 Intramuscu ity of and up 20:51: 20:54 lar, ONCE, [place] (FLUZONE 00 :00 1 dose, Medical QUAD 08/11/19 Branch at 1600, (PF)) Routine syringe 0.5 mL lactulose 2020- No 30mL Take 30 mL U [...] for Pain (scale 4-6). acetaminoph 2020-0 Yes [id number] 1{tbl} Take 1 Univers en-codeine 5-02 tablet by ity of 300-30 mg 00:00: mouth [place] tablet 00 every 4 Medical (four) Branch hours as needed for Pain (scale 4-6). acetaminoph 2020-0 Yes [id number] 1{tbl} Take 1 Univers en-codeine 5-02 tablet by ity of 300-30 mg 00:00: mouth [place] tablet 00 every 4 Medical (four) Branch hours as needed for Pain (scale 4-6). acetaminoph 2020-0 Yes [id number] 1{tbl} Take 1 Univers en-codeine 5-02 tablet by ity of 300-30 mg 00:00: mouth [place] tablet 00 every 4 Medical (four) Branch hours as needed for Pain (scale 4-6). acetaminoph 2020-0 Yes [id number] 1{tbl} Take 1 Univers en-codeine 5-02 tablet by ity of 300-30 mg 00:00: mouth [place] tablet 00 every 4 Medical (four) Branch hours as needed for Pain (scale 4-6). acetaminoph 2020-0 Yes [id number] 1{tbl} Take 1 Univers en-codeine 5-02 tablet by ity of 300-30 mg 00:00: mouth [place] tablet 00 every 4 Medical (four) Branch hours as needed for Pain (scale 4-6). lactulose 2020-0 2020- No [id number] 30mL Take 30 mL Univers 10 gram/15 5-02 06-02 by mouth 2 it y of mL oral 00:00: 04:59 (two) [place] solution 00 :00 times Medical daily for Branch 30 days. pantoprazol 2020-0 2020- No [id number] 40mg Take 1 Univers e 40 mg EC 5-02 06-02 tablet by ity of tablet 00:00: 04:59 mouth [place] 00 :00 daily for Medical 30 days. Branch lactulose 2020-0 2020- No [id number] 30mL Take 30 mL Univers 10 gram/15 5-02 06-02 by mouth 2 it y of mL oral 00:00: 04:59 (two) [place] solution 00 :00 times Medical daily for Branch 30 days. pantoprazol 2020-0 2020- No [id number] 40mg Take 1 Univers e 40 mg EC 08-10 tablet by ity of tablet 00:00: 04:59 mouth [place] 00 :00 daily for Medical 30 days. Branch propranolol 2019-0 2020- No [id number] 10mg Take 1 Univers 10 mg 08-10 [...] No 4mg 4 mg, Slow Univers (ZOFRAN 5 05-02 IV Push, ity of (PF)) 08:55: [...] Medical 13 (two) Center times daily. lactulose 0 Yes 10g Q.5D Take 10 g [facility] [...] Sodium e Sodium Singh defined Spir it [facility] Acetaminoph Acetaminoph Yes Gm not Common en-Codeine en-Codeine Singh defined [facility] #3 #3 [facility] Oseltamivir Oseltamivir Yes Gm not Common Phosphate Phosphate Singh defined Sp cleopatra [facility] Levofloxaci Levofloxaci Yes Gm not Common n n Singh defined [facility] Xifaxan Xifaxan Yes Gm not Common Singh defined [facility] Lactulose Lactulose Yes Gm not Co mmon Singh defined [facility] Albuterol Albuterol Yes Gm not Co mmon Sulfate HFA Sulfate HFA Singh defined [facility] Azithromyci Azithromyci Yes Gm not Common n n Singh defined [facility] Amoxicillin Amoxicillin Yes Gm not Common -Pot -Pot Singh defined [facility] Clavulanate Clavulanate [facility] Immunizations Ordered Immunization Filled Immunization Date Status Commen ts Source Name Name FLUCELVAX QUAD 2021-12-[address] 00:00:00 [facility] FLUCELVAX QUAD 2021-12-[address] 00:00:00 [facility] FLUCELVAX QUAD 2021-12-[address] 00:00:00 [facility] FLUCELVAX QUAD 2021-12-[address] 00:00:00 [facility] FLUCELVAX QUAD 2021-12-[address] 00:00:00 Hospital FLUCELVAX QUAD 2021-12-[address] 00:00:00 Hospital FLUCELVAX QUAD 2021-12-[address] 00:00:00 Hospital FLUCELVAX QUAD 2021-12-[address] 00:00:00 [facility] FLUCELVAX QUAD 2021-12-18 Completed Methodi [...] QUAD PF 2021-02-[address] 00:00:00 [facility] Pneumococcal 2020-10-03 Completed [facility] Polysaccharide 00:00:00 [facility] Pneumococcal 2020-10-03 Completed [facility] Polysaccharide 00:00:00 [facility] Pneumococcal 2020-10-03 Completed [facility] Polysaccharide 00:00:00 [facility] Pneumococcal 2020-10-03 Completed [facility] Polysaccharide 00:00:00 [facility] Pneumococcal 2020-10-03 Completed [facility] Polysaccharide 00:00:00 [facility] Pneumococcal 2020-10-03 Completed [facility] Polysaccharide 00:00:00 [facility] Pneumococcal 2020-10-03 Completed University o f [...] Unive rsity of MODERNA 12+ YRS 00:00:00 [facility] ical VACCINE Branch MODERNA COVID-19 [...] MRNA 2020-07-11 Completed Met hodist VACCINATION 00:00:00 [facility] SARS-COV-2 COVID-19 2020-07-11 Completed Unive rsity of MODERNA VACCINE 00:00:00 [facility] ical Branch SARS-COV-2 COVID-19 2020-07-11 Completed Unive rsity of MODERNA VACCINE 00:00:00 [facility] ical Branch SARS-COV-2 COVID-19 2020-07-11 Completed Unive rsity of MODERNA VACCINE 00:00:00 [facility] ical Branch SARS-COV-2 COVID-19 2020-07-11 Completed Unive rsity of MODERNA VACCINE 00:00:00 [facility] ical Branch SARS-COV-2 COVID-19 2020-07-11 Completed Unive rsity of MODERNA VACCINE 00:00:00 [facility] ical Branch SARS-COV-2 COVID-19 2020-07-11 Completed Unive rsity of MODERNA VACCINE 00:00:00 [facility] ical Branch SARS-COV-2 COVID-19 2020-07-11 Completed Unive rsity of MODERNA VACCINE 00:00:00 [facility] ical Branch SARS-COV-2 COVID-19 2020-07-11 Completed Unive rsity of MODERNA VACCINE 00:00:00 [facility] ical Branch SARS-COV-2 COVID-19 2020-07-11 Completed Unive rsity of MODERNA VACCINE 00:00:00 [facility] ical Branch SARS-COV-2 COVID-19 2020-07-11 [...] VACCINE Branch FLUZONE QUAD PF 2019-08-11 Completed [facility] 00:[facility]:00 [facility] FLUZONE QUAD PF 2019-08-11 Completed [facility] 00:00:00 Hospital FLUZONE QUAD PF 2019-08-11 Completed [facility] 00:00:00 Hospital FLUZONE QUAD PF 2019-08-11 Completed [facility] 00:00:00 Hospital FLUZONE QUAD PF 2019-08-11 Completed [facility] 00:00:00 Hospital FLUZONE QUAD PF 2019-08-11 Completed [facility] 00:00:00 [facility] Influenza Virus 2019-08-11 Completed Universit [...] 6+ MO Branch Influenza (IM) 2018-05-29 Completed [facility] Preservative Free 00:00:00 Hospita l Influenza (IM) 2018-05-29 Completed [facility] Preservative Free 00:00:00 Hospita l Influenza (IM) 2018-05-29 Completed [facility] Preservative Free 00:00:00 Hospita l Influenza (IM) 2018-05-29 Completed [facility] Preservative Free 00:00:00 Hospita l Influenza (IM) 2018-05-29 Completed [facility] Preservative Free 00:00:00 Hospita l Influenza (IM) 2018-05-29 Completed [facility] Preservative Free 00:00:00 Hospita l Influenza (IM) 2017-01-21 Completed [facility] Preservative Free 00:00:00 Hospita l Influenza (IM) 2017-01-21 Completed [facility] Preservative Free 00:00:00 Hospita l Influenza (IM) 2017-01-21 Completed [facility] Preservative Free 00:00:00 Hospita l Influenza (IM) 2017-01-21 Completed [facility] Preservative Free 00:00:00 Hospita l Influenza (IM) 2017-01-21 Completed [facility] Preservative Free 00:00:00 Hospita l Influenza (IM) 2017-01-21 Completed [facility] Preservative Free 00:00:00 Hospita l Influenza (IM) 2016-02-28 Completed [facility] Preservative Free 00:00:00 Hospita l Influenza (IM) 2016-02-28 Completed [facility] Preservative Free 00:00:00 Hospita l Influenza (IM) 2016-02-28 Completed [facility] Preservative Free 00:00:00 Hospita l Influenza (IM) 2016-02-28 Completed [facility] Preservative Free 00:00:00 Hospita l Influenza (IM) 2016-02-28 Completed [facility] Preservative Free 00:00:00 Hospita l Influenza (IM) 2016-02-28 Completed [facility] Preservative Free 00:00:00 Hospita l Vital Signs Vital Name Observation Time Observation Value Comments Source Systolic blood 2022-08-07 07:00:00 128 mm[Hg] Univer sity of pressure [facility] Diastolic blood 2022-08-07 07:00:00 78 mm[Hg] Unive rsity of pressure [facility] Heart rate 2022-08-07 07:00:00 77 /min [facility] [place] [facility] Respiratory rate 2022-08-07 07:00:00 21 /min [facility] [place] [facility] Oxygen saturation in 2022-08-07 07:00:00 99 /min University of Arterial blood by [facility] Pulse oximetry Branch Body temperature 2022-08-07 05:48:00 36.72 Sandee [facility] [place] [facility] Body height 2022-08-07 05:48:00 162.6 cm [facility] [place] [facility] Body weight 2022-08-07 05:48:00 98.884 kg [facility] [place] [facility] BMI 2022-08-07 05:48:00 37.42 kg/m2 [facility] [place] [facility] Systolic blood 2022-04-16 04:00:00 152 mm[Hg] Univer sity of pressure [place] [facility] Diastolic blood 2022-04-16 04:00:00 83 mm[Hg] Unive rsity of pressure [place] [facility] Heart rate 2022-04-16 04:00:00 86 /min [facility] [place] [facility] Respiratory rate 2022-04-16 04:00:00 18 /min [facility] [place] [facility] Oxygen saturation in 2022-04-16 04:00:00 97 /min University of Arterial blood by [facility] Pulse oximetry Branch Body temperature 2022-04-16 02:17:00 37 Sandee [facility] [place] [facility] Body height 2022-04-16 02:17:00 162.6 cm [facility] [place] [facility] Body weight 2022-04-16 02:17:00 120.203 kg [facility] [place] [facility] BMI 2022-04-16 02:17:00 45.49 kg/m2 [facility] [place] [facility] Systolic blood 2022-04-10 03:00:00 113 mm[Hg] Univer sity of pressure [place] [facility] Diastolic blood 2022-04-10 03:00:00 71 mm[Hg] Unive rsity of pressure [place] [facility] Heart rate 2022-04-10 03:00:00 84 /min [facility] [place] [facility] Respiratory rate 2022-04-10 03:00:00 17 /min [facility] [place] [facility] Oxygen saturation in 2022-04-10 03:00:00 98 /min [facility] Arterial blood by [facility] Pulse oximetry Branch Body temperature 2022-04-10 01:36:00 37.11 [place] [facility] Body height 2022-04-10 01:36:00 162.6 cm [facility] Body weight 2022-04-10 01:36:00 120.249 kg [facility] BMI 2022-04-10 01:36:00 45.50 kg/m2 [facility] Systolic blood 2022-02-15 21:55:49 128 mm[Hg] [facility] Diastolic blood 2022-02-15 21:55:49 79 mm[Hg] [facility] Heart rate 2022-02-15 21:55:49 75 /min [facility] Respiratory rate 2022-02-15 21:55:49 19 /min [facility] Oxygen saturation in 2022-02-15 21:55:49 99 /min [facility] Arterial blood by [facility] Pulse oximetry Branch Body temperature 2022-02-15 19:43:00 35.89 [facility] Body height 2022-02-15 19:43:00 162.6 cm [facility] Body weight 2022-02-15 19:43:00 113.399 kg [facility] BMI 2022-02-15 19:43:00 42.91 kg/m2 [facility] Systolic blood 2021-09-29 03:00:00 126 mm[Hg] [facility] Diastolic blood 2021-09-29 03:00:00 57 mm[Hg] [facility] Heart rate 2021-09-29 03:00:00 78 /min [facility] Body temperature 2021-09-29 03:00:00 37.28 [place] Respiratory rate 2021-09-29 03:00:00 16 /min [facility] Body height 2021-09-29 03:00:00 162.6 cm [facility] Body weight 2021-09-29 03:00:00 117.935 kg [facility] BMI 2021-09-29 03:00:00 44.63 kg/m2 [facility] Oxygen saturation in 2021-09-29 03:00:00 97 /min [facility] Arterial blood by [facility] Pulse oximetry Branch Systolic blood 2021-04-02 18:55:00 138 mm[Hg] [facility] Diastolic blood 2021-04-02 18:55:00 104 mm[Hg] [facility] Heart rate 2021-04-02 18:55:00 74 /min [facility] Body temperature 2021-04-02 18:55:00 36.78 [place] Respiratory rate 2021-04-02 18:55:00 18 /min [facility] Body weight 2021-04-02 18:55:00 122.471 kg [facility] BMI 2021-04-02 18:55:00 46.35 kg/m2 [facility] Oxygen saturation in 2021-04-02 18:55:00 97 /min [facility] Arterial blood by [facility] Pulse oximetry Branch Systolic blood 2020-10-03 17:23:00 132 mm[Hg] [facility] Diastolic blood 2020-10-03 17:23:00 56 mm[Hg] [facility] Heart rate 2020-10-03 17:23:00 88 /min [facility] Body temperature 2020-10-03 17:23:00 36.94 [place] Respiratory rate 2020-10-03 17:23:00 18 /min [facility] Oxygen saturation in 2020-10-03 17:23:00 94 /min [facility] Arterial blood by [facility] Pulse oximetry Branch Body weight 2020-09-30 08:11:00 121.473 kg [facility] BMI 2020-09-30 08:11:00 47.44 kg/m2 [facility] Body height 2020-09-29 03:33:00 160 cm [facility] Diastolic blood 2019-08-11 20:04:00 44 mm[Hg] Unive rsity of pressure [facility] Heart rate 2019-08-11 20:04:00 70 /min [facility] Body temperature 2019-08-11 20:04:00 36.61 [place] [facility] Respiratory rate 2019-08-11 20:04:00 18 /min [facility] Oxygen saturation in 2019-08-11 20:04:00 91 /min [facility] Arterial blood by [facility] Pulse oximetry Branch Systolic blood 2019-08-11 20:04:00 107 mm[Hg] Univer [facility]ity of pressure [facility] Body height 2019-08-10 08:01:00 162.6 cm [facility] Body weight 2019-08-10 08:01:00 119.296 kg [facility] BMI 2019-08-10 08:01:00 45.14 kg/m2 [facility] Diastolic blood 2019-08-11 20:04:00 44 mm[Hg] Unive rsity of pressure [facility] Heart rate 2019-08-11 20:04:00 70 /min [facility] Body temperature 2019-08-11 20:04:00 36.61 [place] [facility] Respiratory rate 2019-08-11 20:04:00 18 /min [facility] Oxygen saturation in 2019-08-11 20:04:00 91 /min [facility] Arterial blood by [facility] Pulse oximetry Branch Systolic blood 2019-08-11 20:04:00 107 mm[Hg] [facility] Body height 2019-08-10 08:01:00 162.6 cm [facility] Body weight 2019-08-10 08:01:00 119.296 kg [facility] BMI 2019-08-10 08:01:00 45.14 kg/m2 [facility] Systolic blood 2022-09-23 12:31:29 103 mm[Hg] Method ist [facility] pressure Diastolic blood 2022-09-23 12:31:29 58 mm[Hg] [facility] pressure Heart rate 2022-09-23 12:31:29 74 /min [facility] Body temperature 2022-09-23 12:31:29 36.33 [place] [facility] Respiratory rate 2022-09-23 12:31:29 20 /min [facility] Oxygen saturation in 2022-09-23 12:31:29 95 /min [facility] Arterial blood by Pulse oximetry Body weight 2022-09-23 11:15:00 99.3 kg [facility] BMI 2022-09-23 11:15:00 37.58 kg/m2 [facility] Body height 2022-09-19 22:12:35 162.6 cm [facility] Heart rate 2022-07-09 13:57:00 78 /min [facility] Respiratory rate 2022-07-09 13:57:00 18 /min [facility] Oxygen saturation in 2022-07-09 13:57:00 94 /min [facility] Arterial blood by Pulse oximetry Systolic blood 2022-07-09 12:16:06 126 mm[Hg] Method [facility] pressure Diastolic blood 2022-07-09 12:16:06 58 mm[Hg] [facility] pressure Body temperature 2022-07-09 12:16:06 37.5 [place] [facility] Body weight 2022-07-09 10:09:37 99.927 kg [facility] BMI 2022-07-09 10:09:37 37.81 kg/m2 [facility] Body height 2022-06-23 22:51:34 162.6 cm [facility] Systolic blood 2022-02-27 23:42:53 122 mm[Hg] Method [facility] pressure Diastolic blood 2022-02-27 23:42:53 53 mm[Hg] [facility] pressure Heart rate 2022-02-27 23:42:53 73 /min [facility] Body temperature 2022-02-27 23:42:53 37.06 [place] [facility] Respiratory rate 2022-02-27 23:42:53 18 /min [facility] Oxygen saturation in 2022-02-27 23:42:53 98 /min [facility] Arterial blood by Pulse oximetry Body weight 2022-02-26 03:00:22 118.162 kg [facility] BMI 2022-02-26 03:00:22 44.71 kg/m2 [facility] Body height 2022-02-26 02:56:00 162.6 cm [facility] Systolic blood 2022-01-06 21:13:50 124 mm[Hg] Method ist Hospital pressure Diastolic blood 2022-01-06 21:13:50 58 mm[Hg] [facility] pressure Heart rate 2022-01-06 21:13:50 69 /min [facility] Body temperature 2022-01-06 21:13:50 35.89 [place] [facility] Respiratory rate 2022-01-06 21:13:50 18 /min [facility] Oxygen saturation in 2022-01-06 21:13:50 95 /min [facility] Arterial blood by Pulse oximetry Body weight 2022-01-06 10:25:28 109.952 kg [facility] BMI 2022-01-06 10:25:28 41.61 kg/m2 [facility] Body height 2022-01-02 04:15:00 162.6 cm [facility] Systolic blood 2021-12-18 20:25:00 122 mm[Hg] Method is Hospital pressure Diastolic blood 2021-12-18 20:25:00 57 mm[Hg] [facility] pressure Heart rate 2021-12-18 20:25:00 71 /min [facility] Body temperature 2021-12-18 20:25:00 36.94 [place] [facility] Respiratory rate 2021-12-18 20:25:00 19 /min [facility] Oxygen saturation in 2021-12-18 20:25:00 94 /min [facility] Arterial blood by Pulse oximetry Body weight 2021-12-18 10:58:00 112.1 kg [facility] BMI 2021-12-18 10:58:00 42.42 kg/m2 [facility] Systolic blood 2021-12-03 12:21:16 129 mm[Hg] Method ist Hospital pressure Diastolic blood 2021-12-03 12:21:16 58 mm[Hg] [facility] Hospital pressure Heart rate 2021-12-03 12:21:16 68 /min [facility] Body temperature 2021-12-03 12:21:16 36.11 [place] [facility] Respiratory rate 2021-12-03 12:21:16 20 /min [facility] Oxygen saturation in 2021-12-03 12:21:16 95 /min [facility] Arterial blood by Pulse oximetry Body weight 2021-12-03 11:09:00 112.6 kg [facility] BMI 2021-12-03 11:09:00 42.61 kg/m2 [facility] Body height 2021-10-21 16:02:36 162.6 cm [facility] Procedures Procedure Date / Time Performing Source Performed Clinician CBC WITH PLATELET AND DIFFERENTIAL 2022-09-23 Deepak Ward tor [facility] 10:03:00 Hospital BASIC METABOLIC PANEL 2022-09-23 Ward, Bebeto Rastafarian 10:03:00 Hospital PHOSPHORUS LEVEL 2022-09-23 Ward Bbeeto Rastafarian 10:03:00 Hospital MAGNESIUM LEVEL 2022-09-23 Ward, Bebeto Rastafarian 10:03:00 Hospital HEPATIC FUNCTION PANEL 2022-09-23 Ward, Bebeto Methodis t 10:03:00 Hospital PROTHROMBIN TIME WITH INR 2022-09-23 Ward, Bebeto Metho dist 10:03:00 Hospital ESTIMATED GFR 2022-09-23 Ward, Bebeto Rastafarian 10:03:00 Hospital SMEAR REVIEW 2022-09-23 Ward, Bebeto Rastafarian 10:03:00 Hospital CBC WITH PLATELET AND DIFFERENTIAL 2022-09-22 Ward, Deepak tor Rast[facility]arian 08:49:00 Hospital BASIC METABOLIC PANEL 2022-09-22 Ward, Bebeto Rastafarian 08:49:00 Hospital PHOSPHORUS LEVEL 2022-09-22 Ward Bebeto Rastafarian 08:49:00 Hospital MAGNESIUM LEVEL 2022-09-22 Ward, Bebeto Rastafarian 08:49:00 Hospital C-REACTIVE PROTEIN 2022-09-22 Ward Bebeto Rastafarian 08:49:00 Hospital AMYLASE LEVEL 2022-09-22 Ward, Bebeto Rastafarian 08:49:00 Hospital HEPATIC FUNCTION PANEL 2022-09-22 Ward, Bebeto Methodis t 08:49:00 Hospital PROTHROMBIN TIME WITH INR 2022-09-22 Ward, Bebeto Metho dist 08:49:00 Hospital ESTIMATED GFR 2022-09-22 Ward, Bebeto Rastafarian 08:49:00 Hospital SMEAR REVIEW 2022-09-22 Deepak Wardtor Rastafarian 08:49:00 Hospital CBC WITH PLATELET AND DIFFERENTIAL 2022-09-21 Deepak Ward tor Rastafarian 10:03:00 Hospital PROTHROMBIN TIME WITH INR 2022-09-21 Bebeto Ward Metho dist 10:03:00 Hospital BASIC METABOLIC PANEL 2022-09-21 Deepak Wardtor Rastafarian 10:03:00 Hospital HEPATIC FUNCTION PANEL 2022-09-21 Deepak Wardtor Methodis t 10:03:00 Hospital PHOSPHORUS LEVEL 2022-09-21 Deepak Wardtor Rastafarian 10:03:00 Hospital MAGNESIUM LEVEL 2022-09-21 Deepak Wardtor Rastafarian 10:03:00 Hospital C-REACTIVE PROTEIN 2022-09-21 Depeak Wardtor Rastafarian 10:03:00 Hospital LIPASE LEVEL 2022-09-21 Deepak Wardtor Rastafarian 10:03:00 Hospital AMYLASE LEVEL 2022-09-21 Deepak Wardtor Rastafarian 10:03:00 Hospital ESTIMATED GFR 2022-09-21 Deepak Wardtor Rastafarian 10:03:00 Hospital SMEAR REVIEW 2022-09-21 Deepak Wardtor Rastafarian 10:03:00 Hospital CBC WITH PLATELET AND DIFFERENTIAL 2022-09-20 Deepak Ward tor Rastafarian 10:15:00 Hospital PROTHROMBIN TIME WITH INR 2022-09-20 Bebeto Ward Metho dist 10:15:00 Hospital BASIC METABOLIC PANEL 2022-09-20 WardDeepak sanchestor Rastafarian 10:15:00 Hospital HEPATIC FUNCTION PANEL 2022-09-20 Deepak Wardtor Methodis t 10:15:00 Hospital PHOSPHORUS LEVEL 2022-09-20 WardDeepak sanchestor Rastafarian 10:15:00 Hospital MAGNESIUM LEVEL 2022-09-20 WardDeepak sanchestor Rastafarian 10:15:00 Hospital C-REACTIVE PROTEIN 2022-09-20 Ward, Bebeot Rastafarian 10:15:00 Hospital HEMOGLOBIN A1C 2022-09-20 Deepak Wardtor Rastafarian 10:15:00 Hospital THYROID STIMULATING HORMONE 2022-09-20 Bebeto Ward Met hodist 10:15:00 Hospital VITAMIN D 25 HYDROXY LEVEL 2022-09-20 Bebeto Ward Meth odist 10:15:00 Hospital ALPHA FETOPROTEIN 2022-09-20 Bebeto Ward Rastafarian 10:15:00 Hospital LIPASE LEVEL 2022-09-20 Bebeto Ward Rastafarian 10:15:00 Hospital AMYLASE LEVEL 2022-09-20 Bebeto Ward Rastafarian 10:15:00 Hospital LDH 2022-09-20 Bebeto Ward Rastafarian 10:15:00 Hospital FERRITIN LEVEL 2022-09-20 Bebeto Ward Rastafarian 10:15:00 Hospital VITAMIN B12 LEVEL 2022-09-20 Bebeto Ward Rastafarian 10:15:00 Hospital RETICULOCYTE COUNT 2022-09-20 Bebeto Ward Rastafarian 10:15:00 Hospital TOTAL IRON BINDING CAPACITY 2022-09-20 Bebeto Ward Met hodist 10:15:00 Hospital FOLATE LEVEL 2022-09-20 Bebeto Ward Rastafarian 10:15:00 Hospital HAPTOGLOBIN 2022-09-20 Bebeto Ward Rastafarian 10:15:00 Hospital ESTIMATED GFR 2022-09-20 Bebeto Ward Rastafarian 10:15:00 Hospital SMEAR REVIEW 2022-09-20 Bebeto Ward Rastafarian 10:15:00 Hospital URINE CULTURE 2022-09-19 Daniel Saucedo 13:28:00 Hospital URINALYSIS SCREEN AND MICROSCOPY, 2022-09-19 Daniel Saucedo WITH REFLEX TO CULTURE 13:28:00 Hospital LACTIC ACID LEVEL, SEPSIS - NOW 2022-09-19 Daniel Saucedo AND REPEAT 2X EVERY 3 HOURS 08:12:[address] ABDOMEN PELVIS WO CONTRAST 2022-09-19 Daniel Saucedo Hi nadiaodi 06:18:00 Hospital CBC WITH PLATELET AND DIFFERENTIAL 2022-09-19 Daniel Saucedo 04:11:00 Hospital COMPREHENSIVE METABOLIC PANEL 2022-09-19 Daniel Saucedo Hi thodist 04:11:00 Hospital LACTIC ACID LEVEL, SEPSIS - NOW 2022-09-19 Daniel Saucedo AND REPEAT 2X EVERY 3 HOURS 04:11:00 Hosp ital LIPASE LEVEL 2022-09-19 Daniel Saucedo 04:11:00 Hospital ESTIMATED GFR 2022-09-19 Daniel Saucedo 04:11:00 Hospital SMEAR REVIEW 2022-09-19 Daniel Saucedo 04:11:00 Hospital US DUPLEX VENOUS UPPER EXTREMITY 2022-09-09 Ricarda Ward LEFT 16:42:00 Hospital CBC WITH PLATELET AND DIFFERENTIAL 2022-09-09 Deepak Ward Rastafarian 08:41:00 Hospital BASIC METABOLIC PANEL 2022-09-09 Bebeto Ward Rastafarian 08:41:00 Hospital HEPATIC FUNCTION PANEL 2022-09-09 Bebeto Wardis t 08:41:00 Hospital MAGNESIUM LEVEL 2022-09-09 Bebeto Ward Rastafarian 08:41:00 Hospital PHOSPHORUS LEVEL 2022-09-09 Bebeto Ward Rastafarian 08:41:00 Hospital PROTHROMBIN TIME WITH INR 2022-09-09 Bebeto Ward Metho dist 08:41:00 Hospital ESTIMATED GFR 2022-09-09 Bebeto Ward Rastafarian 08:41:00 Hospital SMEAR REVIEW 2022-09-09 Bebeto Ward Rastafarian 08:41:00 Hospital CBC WITH PLATELET AND DIFFERENTIAL 2022-09-08 Leah Sandoval Rastafarian 10:45:00 [facility] PROTHROMBIN TIME WITH INR 2022-09-08 Jeremy Sandoval Method ist 10:45:00 [facility] BASIC METABOLIC PANEL 2022-09-08 Jeremy Sandoval Rastafarian 10:45:00 [facility] HEPATIC FUNCTION PANEL 2022-09-08 Jeremy Sandoval Rastafarian 10:45:00 [facility] PHOSPHORUS LEVEL 2022-09-08 Dinar Jeremy Rastafarian 10:45:00 [facility] MAGNESIUM LEVEL 2022-09-08 Dinar Jeremy Rastafarian 10:45:00 [facility] ESTIMATED GFR 2022-09-08 Jeremy Sandoval Rastafarian 10:45:00 [facility] SMEAR REVIEW 2022-09-08 Dinakar, Jeremy Rastafarian 10:45:00 [facility] XR ABDOMEN 1 VW PORTABLE 2022-09-07 Bebeto Ward Method ist 22:48:34 [facility] CBC WITH PLATELET AND DIFFERENTIAL 2022-09-07 Dinakar, Leah stuart Rastafarian 10:35:00 [facility] PROTHROMBIN TIME WITH INR 2022-09-07 Dinakar, Jeremy Method ist 10:35:00 [facility] BASIC METABOLIC PANEL 2022-09-07 Dinakar, Jeremy Rastafarian 10:35:00 [facility] HEPATIC FUNCTION PANEL 2022-09-07 Dinakar, Jeremy Rastafarian 10:35:00 [facility] PHOSPHORUS LEVEL 2022-09-07 Dinakar, Jeremy Rastafarian 10:35:00 [facility] MAGNESIUM LEVEL 2022-09-07 Dinakar, Jeremy Rastafarian 10:35:00 [facility] LIPASE LEVEL 2022-09-07 Bebeto Ward Rastafarian 10:35:00 Hospital AMYLASE LEVEL 2022-09-07 Bebeto Ward Rastafarian 10:35:00 Hospital ESTIMATED GFR 2022-09-07 Dinakar, Jeremy Rastafarian 10:35:00 [facility] SMEAR REVIEW 2022-09-07 Dinakar, Jeremy Rastafarian 10:35:00 [facility] CBC WITH PLATELET AND DIFFERENTIAL 2022-09-06 Dinakar, Leah stuart Rastafarian 11:41:00 [facility] PROTHROMBIN TIME WITH INR 2022-09-06 Dinakar, Jeremy Method ist 11:41:00 [facility] BASIC METABOLIC PANEL 2022-09-06 Dinakar, Jeremy Rastafarian 11:41:00 [facility] HEPATIC FUNCTION PANEL 2022-09-06 Dinakar, Jeremy Rastafarian 11:41:00 [facility] PHOSPHORUS LEVEL 2022-09-06 Dinakar, Jeremy Rastafarian 11:41:00 [facility] MAGNESIUM LEVEL 2022-09-06 Dinakar, Jeremy Rastafarian 11:41:00 [facility] FERRITIN LEVEL 2022-09-06 Bebeto Ward Rastafarian 11:41:00 Hospital LDH 2022-09-06 Bebeto Ward Rastafarian 11:41:00 Hospital FOLATE LEVEL 2022-09-06 Bebeto Ward Rastafarian 11:41:00 Hospital TOTAL IRON BINDING CAPACITY 2022-09-06 Bebeto Ward hodist 11:41:00 Hospital VITAMIN B12 LEVEL 2022-09-06 Bebteo Ward Rastafarian 11:41:00 Hospital RETICULOCYTE COUNT 2022-09-06 Bebeto Ward Rastafarian 11:41:00 Hospital ESTIMATED GFR 2022-09-06 Ara, Jeremy Rastafarian 11:41:00 [facility] SMEAR REVIEW 2022-09-06 Jeremy Sandoval Rastafarian 11:41:00 [facility] XR ABDOMEN 1 VW PORTABLE 2022-09-06 Bebeto Ward Method ist 11:20:00 Hospital XR ABDOMEN 1 VW PORTABLE 2022-09-05 Bebeto Ward Method ist 18:31:03 [facility] CBC WITH PLATELET AND DIFFERENTIAL 2022-09-05 DinakarLeah Rastafarian 10:41:00 [facility] PROTHROMBIN TIME WITH INR 2022-09-05 Jeremy Sandoval Method ist 10:41:00 [facility] BASIC METABOLIC PANEL 2022-09-05 DinakarJeremy Rastafarian 10:41:00 [facility] HEPATIC FUNCTION PANEL 2022-09-05 DinakarJeremy Rastafarian 10:41:00 [facility] PHOSPHORUS LEVEL 2022-09-05 Dinakar, Jeremy Rastafarian 10:41:00 [facility] MAGNESIUM LEVEL 2022-09-05 Dinakar, Jeremy Rastafarian 10:41:00 [facility] ESTIMATED GFR 2022-09-05 Jeremy Sandoval Rastafarian 10:41:00 [facility] SMEAR REVIEW 2022-09-05 DinarJeremy Rastafarian 10:41:00 [facility] CBC WITH PLATELET AND DIFFERENTIAL 2022-09-04 Dinakar Sati vignesh Rastafarian 10:29:00 [facility] PROTHROMBIN TIME WITH INR 2022-09-04 Dinakar Jeremy Method ist 10:29:00 [facility] BASIC METABOLIC PANEL 2022-09-04 DinakarJeremy Rastafarian 10:29:00 [facility] HEPATIC FUNCTION PANEL 2022-09-04 Dinakar, Jeremy Rastafarian 10:29:00 [facility] PHOSPHORUS LEVEL 2022-09-04 Dinakar, Jeremy Rastafarian 10:29:00 [facility] MAGNESIUM LEVEL 2022-09-04 Dinakar, Jermey Rastafarian 10:29:00 [facility] ESTIMATED GFR 2022-09-04 Dinakar, Jeremy Rastafarian 10:29:00 [facility] SMEAR REVIEW 2022-09-04 Dinakar, Jeremy Rastafarian 10:29:[address] [facility] [address] ABDOMEN WWO CONTRAST PELVIS W 2022-09-03 Jer Jaeger Rastafarian CONTRAST 17:59:23 [facility] CBC WITH PLATELET AND DIFFERENTIAL 2022-09-03 Leah Sandoval Rastafarian 09:48:00 [facility] PROTHROMBIN TIME WITH INR 2022-09-03 Jeremy Sandoval Method ist 09:48:00 [facility] BASIC METABOLIC PANEL 2022-09-03 DinarJeremy Rastafarian 09:48:00 [facility] HEPATIC FUNCTION PANEL 2022-09-03 DinarJeremy Rastafarian 09:48:00 [facility] PHOSPHORUS LEVEL 2022-09-03 Dinakar, Jeremy Rastafarian 09:48:00 [facility] MAGNESIUM LEVEL 2022-09-03 Dinakar, Jeremy Rastafarian 09:48:00 [facility] ESTIMATED GFR 2022-09-03 Jeremy Sandoval Rastafarian 09:48:00 [facility] SMEAR REVIEW 2022-09-03 Jeremy Sandoval Rastafarian 09:48:00 [facility] US ABDOMINAL PARACENTESIS IMAGING 2022-09-02 Jose Sandoval Rastafarian 19:17:39 [facility] AEROBIC CULTURE 2022-09-02 Jeremy Sandoval Rastafarian 18:45:00 [facility] ANAEROBIC CULTURE 2022-09-02 Jeremy Sandoval Rastafarian 18:45:00 [facility] GRAM STAIN 2022-09-02 Jeremy Sandoval Rastafarian 18:45:00 [facility] PROTEIN, MISC FLUID 2022-09-02 Jeremy Sandoval Rastafarian 18:45:00 [facility] CELL COUNT AND DIFFERENTIAL, BODY 2022-09-02 Jose Sandoval Rastafarian FLUID 18:45:00 [facility] ALBUMIN, MISC FLUID 2022-09-02 Jeremy Sandoval Rastafarian 18:45:00 [facility] CYTOLOGY (NON-GYNECOLOGICAL) 2022-09-02 Bebeto Ward thodist REQUEST 18:45:00 Hospital [facility] NEED PHYS SKILL,DX OR RX 2022-09-02 Yvonne Zabala 13:30:44 [facility] CBC WITH PLATELET AND DIFFERENTIAL 2022-09-02 Dinhomar, Leah Rileyist 10:47:00 [facility] PROTHROMBIN TIME WITH INR 2022-09-02 Ara, Jeremy Riley ist 10:47:00 [facility] BASIC METABOLIC PANEL 2022-09-02 Dinar, Jeremy Rileyist 10:47:00 [facility] HEPATIC FUNCTION PANEL 2022-09-02 Dinar, Jeremy Kyle 10:47:00 [facility] PHOSPHORUS LEVEL 2022-09-02 Dinar, Jeremy Kyle 10:47:00 [facility] MAGNESIUM LEVEL 2022-09-02 Dinar, Jeremy Kyle 10:47:00 [facility] HEMOGLOBIN A1C 2022-09-02 Dinar, Jeremy Kyle 10:47:00 [facility] ESTIMATED GFR 2022-09-02 Dinar, Jeremy Kyle 10:47:00 [facility] SMEAR REVIEW 2022-09-02 Ara, Jeremy Kyle 10:47:00 [facility] URINALYSIS, AUTOMATED WITH 2022-09-02 Jeremy Sandovalo dist MICROSCOPY 02:02:00 [facility] BLOOD CULTURE, AEROBIC & ANAEROBIC 2022-09-02 Dinar, Leah Kyle 01:48:00 [facility] XR CHEST 1 VW PORTABLE 2022-09-02 Dinar, Jeremy Kyle 00:35:32 [facility] XR ABDOMEN 1 VW PORTABLE 2022-09-02 Dinhomar, Jeremy Rileyi st 00:34:59 [facility] BLOOD CULTURE, AEROBIC & ANAEROBIC 2022-09-01 Dinar, Leah Kyle 22:31:00 [facility] BASIC METABOLIC PANEL 2022-09-01 Dinhomar, Jeremy Kyle 22:31:00 [facility] CBC WITH PLATELET AND DIFFERENTIAL 2022-09-01 Dinhomar, Leah Kyle 22:31:00 [facility] HEPATIC FUNCTION PANEL 2022-09-01 Dinakar, Jeremy Kyle 22:31:00 [facility] MAGNESIUM LEVEL 2022-09-01 Jeremy Sandoval 22:31:00 [facility] PHOSPHORUS LEVEL 2022-09-01 Jeremy Sandoval 22:31:00 [facility] PROTHROMBIN TIME WITH INR 2022-09-01 Jeremy Sandoval ist 22:31:00 [facility] LIPASE LEVEL 2022-09-01 Jeremy Sandoval 22:31:00 [facility] FIBRINOGEN 2022-09-01 Jeremy Sandoval 22:31:00 [facility] ESTIMATED GFR 2022-09-01 Jeremy Sandoval 22:31:00 [facility] SMEAR REVIEW 2022-09-01 Jeremy Sandoval 22:31:00 [facility] XR KNEE 3 VW RIGHT [facility]08-[facility] 15:[facility] XR LUMBAR SPINE 2 VW 2022-08-11 [place] [facility] ty of 15:57:06 [facility] EKG-12 LEAD 2022-08-07 Sukhdev Soto [facility] 07:45:43 [facility] LIPASE 2022-08-07 CharlesSukhdev [facility] 06:26:00 [facility] MAGNESIUM 2022-08-07 CharlesSukhdev [facility] 06:26:00 [facility] TROPONIN I 2022-08-07 CharlesSukhdev [facility] 06:26:00 [facility] COMP. METABOLIC PANEL ([id number]) 2022-08-07 Sukhdev Soto [facility] 06:26:00 [facility] CBC WITH DIFF 2022-08-07 Sukhdev Soto [facility] 06:26:00 [facility] URINALYSIS 2022-08-07 Sukhdev Soto [facility] 06:26:00 [facility] CONSENT/REFUSAL FOR DIAGNOSIS AND 2022-08-07 Doctor Buck olmedo [facility] 05:28:51 [place] [facility] SURGICAL PATHOLOGY REQUEST 2022-08-03 Nakia Cruzo dist 21:04:00 Hospital ESOPHAGOGASTRODUODENOSCOPY (EGD) 2022-08-03 Duchini, Elias Rastafarian 20:10:00 Hospital AMMONIA LEVEL 2022-08-03 Nakia Cruz Rastafarian 09:12:00 Hospital BASIC METABOLIC PANEL 2022-08-03 Nakia Cruz Rastafarian 09:12:00 Hospital HEPATIC FUNCTION PANEL 2022-08-03 Nakia Cruz Rastafarian 09:12:00 Hospital MAGNESIUM LEVEL 2022-08-03 Nakia Cruz Rastafarian 09:12:00 Hospital PHOSPHORUS LEVEL 2022-08-03 Nakia Cruz Rastafarian 09:12:00 Hospital PROTHROMBIN TIME WITH INR 2022-08-03 Nakia Cruz Method ist 09:12:00 Hospital CBC HEMOGRAM 2022-08-03 Nakia Cruz Rastafarian 09:12:00 Hospital ESTIMATED GFR 2022-08-03 Nakia Cruz Rastafarian 09:12:00 Hospital COVID-19 QUALITATIVE RT-PCR 2022-08-02 Elias Guzman odnohelia 22:28:00 Hospital AMMONIA LEVEL 2022-08-02 Nakia Cruz Rastafarian 08:00:00 Hospital BASIC METABOLIC PANEL 2022-08-02 Nakia Cruz Rastafarian 08:00:00 Hospital HEPATIC FUNCTION PANEL 2022-08-02 Nakia Cruz Rastafarian 08:00:00 Hospital MAGNESIUM LEVEL 2022-08-02 Nakia Cruz Rastafarian 08:00:00 Hospital PHOSPHORUS LEVEL 2022-08-02 Tripp Cruzg Rastafarian 08:00:00 Hospital PROTHROMBIN TIME WITH INR 2022-08-02 Nakia Cruz Method ist 08:00:00 Hospital CBC HEMOGRAM 2022-08-02 Nakia Cruz Rastafarian 08:00:00 Hospital LIPASE LEVEL 2022-08-02 Nakia Cruz Rastafarian 08:00:00 Hospital ESTIMATED GFR 2022-08-02 Tripp Cruzg Rastafarian 08:00:00 Hospital AMMONIA LEVEL 2022-08-01 Nakia Cruz Rastafarian 11:23:00 Hospital BASIC METABOLIC PANEL 2022-08-01 Nakia Cruz Rastafarian 11:23:00 Hospital HEPATIC FUNCTION PANEL 2022-08-01 Nakia Cruz Rastafarian 11:23:00 Hospital MAGNESIUM LEVEL 2022-08-01 Nakia Cruz Rastafarian 11:23:00 Hospital PHOSPHORUS LEVEL 2022-08-01 Nakia Cruz 11:23:00 Hospital PROTHROMBIN TIME WITH INR 2022-08-01 Nakia Cruz Method ist 11:23:00 Hospital CBC HEMOGRAM 2022-08-01 Nakia Cruz 11:23:00 Hospital ESTIMATED GFR 2022-08-01 Nakia Cruz 11:23:00 [facility] CBC WITH PLATELET AND DIFFERENTIAL 2022-07-31 Willian Singleton 07:31:00 [facility] COMPREHENSIVE METABOLIC PANEL 2022-07-31 Willian Singleton 07:31:00 [facility] PROTHROMBIN TIME WITH INR 2022-07-31 Willian Singleton Method ist 07:31:00 [facility] ESTIMATED GFR 2022-07-31 Willian Singleton 07:31:00 [facility] SMEAR REVIEW 2022-07-31 Willian Singleton 07:31:00 [facility] BASIC METABOLIC PANEL 2022-07-30 JoseWillian gno 11:02:00 [facility] CBC WITH PLATELET AND DIFFERENTIAL 2022-07-30 Willian Singleton 11:02:00 [facility] HEPATIC FUNCTION PANEL 2022-07-30 Willian Singleton 11:02:00 [facility] PROTHROMBIN TIME WITH INR 2022-07-30 Willian Singleton ist 11:02:00 [facility] ESTIMATED GFR 2022-07-30 Willian Singleton 11:02:00 [facility] BLOOD CULTURE, AEROBIC & ANAEROBIC 2022-07-29 Deepak Ward 09:45:00 Hospital LIPASE LEVEL 2022-07-29 Willian Singleton 09:45:00 [facility] PROTHROMBIN TIME WITH INR 2022-07-29 Willian Singleton Method ist 09:45:00 [facility] CBC WITH PLATELET AND DIFFERENTIAL 2022-07-29 Willian Singleton 09:45:00 [facility] BASIC METABOLIC PANEL 2022-07-29 Willian Singleton 09:45:00 [facility] HEPATIC FUNCTION PANEL 2022-07-29 JoseWillian ngo 09:45:00 [facility] ESTIMATED GFR 2022-07-29 Willian Singleton 09:45:00 [facility] SMEAR REVIEW 2022-07-29 Willian Singleton 09:45:00 [facility] URINE CULTURE 2022-07-29 Bebeto Ward 01:52:00 Hospital US HEPATIC 2022-07-29 Willian Singleton 00:00:00 [facility] URINALYSIS SCREEN AND MICROSCOPY, 2022-07-28 Dianelys Ward or Rastafarian WITH REFLEX TO CULTURE 22:31:00 Hospital COVID-19 QUALITATIVE RT-PCR 2022-07-28 Willian Singleton 22:02:00 [facility] BLOOD CULTURE, AEROBIC & ANAEROBIC 2022-07-28 Deepak Ward 21:23:00 Hospital COMPREHENSIVE METABOLIC PANEL 2022-07-28 Bebeto Ward ethodist 21:22:00 Hospital PROTHROMBIN TIME WITH INR 2022-07-28 Bebeto Ward Metho dist 21:22:00 Hospital TYPE AND SCREEN 2022-07-28 Bebeto Ward Rastafarian 21:22:00 Hospital ESTIMATED GFR 2022-07-28 Bebeto Ward Rastafarian 21:22:00 Hospital LIPASE LEVEL 2022-07-28 Bebeto Ward Rastafarian 21:22:00 Hospital CBC WITH PLATELET AND DIFFERENTIAL 2022-07-28 Deepak Ward Rastafarian 20:57:00 Hospital CBC WITH PLATELET AND DIFFERENTIAL 2022-07-09 Deepak Ward Rastafarian 11:42:00 Hospital PROTHROMBIN TIME WITH INR 2022-07-09 Bebeto Ward Metho dist 11:42:00 Hospital BASIC METABOLIC PANEL 2022-07-09 Deepak Wardtor Rastafarian 11:42:00 Hospital ESTIMATED GFR 2022-07-09 Bebeto Ward Rastafarian 11:42:00 Hospital NM GASTRIC EMPTYING 2022-07-08 Anabella Suresh 18:43:00 [facility] CBC WITH PLATELET AND DIFFERENTIAL 2022-07-08 WardDeepak graves Rastafarian 09:20:00 Hospital PROTHROMBIN TIME WITH INR 2022-07-08 Deepak Wardtor Metho dist 09:20:00 Hospital COMPREHENSIVE METABOLIC PANEL 2022-07-08 Me Demetrice thodist 09:20:00 [facility] ESTIMATED GFR 2022-07-08 Anabella Suresh 09:20:00 [facility] CBC WITH PLATELET AND DIFFERENTIAL 2022-07-07 WardDeepak sanches Rastafarian 10:07:00 Hospital PROTHROMBIN TIME WITH INR 2022-07-07 Ward, Bebeto Metho dist 10:07:00 Hospital COMPREHENSIVE METABOLIC PANEL 2022-07-07 Nakia Cruz Hi thodist 10:07:00 Hospital PHOSPHORUS LEVEL 2022-07-07 Ward, Bebeto Rastafarian 10:07:00 Hospital MAGNESIUM LEVEL 2022-07-07 WardDeepak sanchestor Rastafarian 10:07:00 Hospital ESTIMATED GFR 2022-07-07 Nakia Cruz 10:07:[address] ABDOMEN PELVIS W CONTRAST 2022-07-06 Katherine Jaeger 22:02:35 [facility] CBC WITH PLATELET AND DIFFERENTIAL 2022-07-06 Deepak Ward Rastafarian 11:46:00 Hospital PROTHROMBIN TIME WITH INR 2022-07-06 Ward, Bebeto Metho dist 11:46:00 Hospital COMPREHENSIVE METABOLIC PANEL 2022-07-06 Nakia Cruz Hi thodist 11:46:00 Hospital PHOSPHORUS LEVEL 2022-07-06 Sylvia Bebeto Rastafarian 11:46:00 Hospital MAGNESIUM LEVEL 2022-07-06 Ward, Bebeto Rastafarian 11:46:00 Hospital LIPASE LEVEL 2022-07-06 Anabella Suresh 11:46:00 [facility] ESTIMATED GFR 2022-07-06 Nakia Cruz 11:46:00 Hospital SMEAR REVIEW 2022-07-06 Nakia Cruz 11:46:00 Hospital XR KNEE 1 OR 2 VW RIGHT 2022-07-06 Juan Suresh t 11:12:26 [facility] CBC WITH PLATELET AND DIFFERENTIAL 2022-07-05 Ward, Hec tor Rastafarian 09:28:00 Hospital PROTHROMBIN TIME WITH INR 2022-07-05 Ward, Bebeto Metho dist 09:28:00 Hospital COMPREHENSIVE METABOLIC PANEL 2022-07-05 Nakia Cruz thodist 09:28:00 Hospital PHOSPHORUS LEVEL 2022-07-05 Bebeto Ward 09:28:00 Hospital MAGNESIUM LEVEL 2022-07-05 Bebeto Ward 09:28:00 Hospital HEMOGLOBIN A1C 2022-07-05 Nakia Cruz [...] 02:19:00 Hospital COMPREHENSIVE METABOLIC PANEL 2022-07-05 Nakia Cruzodist 02:19:00 Hospital PROTHROMBIN TIME WITH INR 2022-07-05 [...] Hospital US CAROTID DUPLEX RIGHT 2022-06-30 Tameka Deshpandeis t 19:00:00 Hospital XR ABDOMEN 1 VW PORTABLE 2022-06-30 Ward, Bebeto Method ist 15:45:00 Hospital CBC WITH PLATELET AND DIFFERENTIAL 2022-06-30 Nakia Cruz Rastafarian 09:35:00 Hospital PROTHROMBIN TIME WITH INR 2022-06-30 Nakia Cruz Method ist 09:35:00 Hospital PHOSPHORUS LEVEL 2022-06-30 Nakia Cruz Rastafarian 09:35:00 Hospital MAGNESIUM LEVEL 2022-06-30 Nakia Cruz Rastafarian 09:35:00 Hospital BASIC METABOLIC PANEL 2022-06-30 Bebeto Ward Rastafarian 09:35:00 Hospital HEPATIC FUNCTION PANEL 2022-06-30 Bebeto Ward Methodis t 09:35:00 Hospital ESTIMATED GFR 2022-06-30 Bebeto Ward Rastafarian 09:35:00 Hospital LIPASE LEVEL 2022-06-30 Deepak Wardtor Rastafarian 09:35:00 Hospital SMEAR REVIEW 2022-06-30 Nakia Cruz Rastafarian 09:35:00 Hospital CV RIGHT HEART CATH 2022-06-29 Belem Duarte Rastafarian 15:34:01 Hospital TYPE AND SCREEN 2022-06-29 Bebeto Ward Rastafarian 10:54:00 Hospital PREPARE PLATELET PHERESIS 2022-06-29 Belem Duarte Method ist 10:54:00 Hospital CBC WITH PLATELET AND DIFFERENTIAL 2022-06-29 Nakia Cruz Rastafarian 09:19:00 Hospital PROTHROMBIN TIME WITH INR 2022-06-29 Nakia Cruz Method ist 09:19:00 Hospital PHOSPHORUS LEVEL 2022-06-29 Nakia Cruz Rastafarian 09:19:00 Hospital MAGNESIUM LEVEL 2022-06-29 Nakia Cruz Rastafarian 09:19:00 Hospital C-REACTIVE PROTEIN 2022-06-29 Bebeto Ward Rastafarian 09:19:00 Hospital LIPASE LEVEL 2022-06-29 Bebeto Ward Rastafarian 09:19:00 Hospital BASIC METABOLIC PANEL 2022-06-29 Deepak Wardtor Rastafarian 09:19:00 Hospital HEPATIC FUNCTION PANEL 2022-06-29 Bebeto Ward Methodis t 09:19:00 Hospital ESTIMATED GFR 2022-06-29 Bebeto Ward Rastafarian 09:19:00 Hospital SMEAR REVIEW 2022-06-29 Nakia Cruz 09:19:00 Hospital VENIPUNC NEED PHYS SKILL,DX OR RX 2022-06-28 Anabella Damon 22:38:21 [facility] CT CARDIAC OVERREAD 2022-06-28 Belem Duarte 15:27:09 Hospital CV CTA CORONARY ARTERIES W 2022-06-28 Belem Duarteo dist CONTRAST 15:24:49 Hospital CBC WITH PLATELET AND DIFFERENTIAL 2022-06-28 Nakia Cruz 08:51:00 Hospital PROTHROMBIN TIME WITH INR 2022-06-28 Nakia Cruz ist 08:51:00 Hospital PHOSPHORUS LEVEL 2022-06-28 Nakia Cruz 08:51:00 Hospital MAGNESIUM LEVEL 2022-06-28 Nakia Cruz 08:51:00 Hospital C-REACTIVE PROTEIN 2022-06-28 Bebeto Ward Rastafarian 08:51:00 Hospital LIPASE LEVEL 2022-06-28 Bebeto Ward Rastafarian 08:51:00 Hospital BASIC METABOLIC PANEL 2022-06-28 Bebeto Ward Rastafarian 08:51:00 Hospital HEPATIC FUNCTION PANEL 2022-06-28 Bebeto Ward t 08:51:00 Hospital LDH 2022-06-28 Bebeto Ward Rastafarian 08:51:00 Hospital ESTIMATED GFR 2022-06-28 Bebeto Ward Rastafarian 08:51:00 Hospital SMEAR REVIEW 2022-06-28 Nakia Cruz 08:51:00 Hospital CBC WITH PLATELET AND DIFFERENTIAL 2022-06-27 Nakia Cruz 08:56:00 Hospital PROTHROMBIN TIME WITH INR 2022-06-27 Nakia Cruz ist 08:56:00 Hospital PHOSPHORUS LEVEL 2022-06-27 Nakia Cruz 08:56:00 Hospital MAGNESIUM LEVEL 2022-06-27 Nakia Cruz 08:56:00 Hospital C-REACTIVE PROTEIN 2022-06-27 Bebeto Ward Rastafarian 08:56:00 Hospital LIPASE LEVEL 2022-06-27 Bebeto Ward Rastafarian 08:56:00 Hospital LDH 2022-06-27 Bebeto Ward 08:56:00 Hospital IONIZED CALCIUM 2022-06-27 Bebeto Ward 08:56:00 Hospital IGG SUBCLASSES 2022-06-27 Bebeto Ward 08:56:00 Hospital BASIC METABOLIC PANEL 2022-06-27 Bebeto Ward 08:56:00 Hospital HEPATIC FUNCTION PANEL 2022-06-27 Bebeto Ward t 08:56:00 Hospital ESTIMATED GFR 2022-06-27 Bebeto Ward 08:56:00 Hospital SMEAR REVIEW 2022-06-27 Nakia Cruz 08:56:00 Hospital CBC WITH PLATELET AND DIFFERENTIAL 2022-06-26 Nakia Cruz 08:56:00 Hospital PROTHROMBIN TIME WITH INR 2022-06-26 Nakia Cruz Method ist 08:56:00 Hospital COMPREHENSIVE METABOLIC PANEL 2022-06-26 Nakia Cruz thodist 08:56:00 Hospital PHOSPHORUS LEVEL 2022-06-26 Nakia Cruz Rastafarian 08:56:00 Hospital MAGNESIUM LEVEL 2022-06-26 Nakia Cruz Rastafarian 08:56:00 Hospital AMMONIA LEVEL 2022-06-26 Nakia Cruz Rastafarian 08:56:00 Hospital ESTIMATED GFR 2022-06-26 Nakia Cruz 08:56:00 Hospital SMEAR REVIEW 2022-06-26 Nakia Cruz Rastafarian 08:56:00 Hospital CBC WITH PLATELET AND DIFFERENTIAL 2022-06-25 Nakia Cruz Rastafarian 09:48:00 Hospital PROTHROMBIN TIME WITH INR 2022-06-25 Nakia Cruz Method ist 09:48:00 Hospital COMPREHENSIVE METABOLIC PANEL 2022-06-25 Nakia Cruz thodist 09:48:00 Hospital PHOSPHORUS LEVEL 2022-06-25 Nakia Cruz Rastafarian 09:48:00 Hospital MAGNESIUM LEVEL 2022-06-25 Tripp Cruzg Rastafarian 09:48:00 Hospital AMMONIA LEVEL 2022-06-25 Nakia Cruz Rastafarian 09:48:00 Hospital LIPASE LEVEL 2022-06-25 Myra Garcia 09:48:00 [facility] AMYLASE LEVEL 2022-06-25 Myra Garcia 09:48:00 [facility] ESTIMATED GFR 2022-06-25 Nakia Cruz 09:48:00 Hospital SMEAR REVIEW 2022-06-25 Nakia Cruz 09:48:[address] ABDOMEN WWO CONTRAST PELVIS W 2022-06-25 Manjit Garcia CONTRAST 02:19:19 [facility] XR ABDOMEN 1 VW PORTABLE 2022-06-24 Myra Garcia odist 21:52:21 [facility] CBC WITH PLATELET AND DIFFERENTIAL 2022-06-24 Nakia Cruz 10:10:00 Hospital PROTHROMBIN TIME WITH INR 2022-06-24 Nakia Cruz ist 10:10:00 Hospital COMPREHENSIVE METABOLIC PANEL 2022-06-24 Nakia Cruz thodist 10:10:00 Hospital PHOSPHORUS LEVEL 2022-06-24 Nakia Cruz 10:10:00 Hospital MAGNESIUM LEVEL 2022-06-24 Nakia Cruz [...] Cruzist 23:27:00 Hospital PHOSPHORUS LEVEL 2022-06-23 Nakia Cruz 23:27:00 Hospital CBC WITH PLATELET AND DIFFERENTIAL 2022-06-23 Nakia Cruz 23:27:00 Hospital PROTHROMBIN TIME WITH INR 2022-06-23 Nakia Cruz ist 23:27:00 Hospital LIPASE LEVEL 2022-06-23 Nakia Cruz 23:27:00 Hospital ESTIMATED GFR 2022-06-23 Nakia Cruz 23:27:00 Hospital SMEAR REVIEW 2022-06-23 Nakia Cruz 23:27:00 [facility] US CAROTID DUPLEX BILATERAL 2022-06-21 Jose Raul Nicole odist 20:00:00 [facility] SPIROMETRY, DIFFUSION, LUNG 2022-06-21 Jose Raul Nicole odist VOLUMES 18:16:50 [facility] ARTERIAL BLOOD GAS, PULMONARY FUNC 2022-06-21 Jules Nicole Rastafarian DEPT 17:38:00 [facility] TTE COMPLETE, WO CONTRAST, W 2022-06-21 Jose Raul Nicole hodnohelia DOPPLER ([id number]) 16:30:00 [facility] XR CHEST 2 VW 2022-06-14 Jose Raul Nicole 20:41:00 [facility] XR PANOREX 2022-06-14 Jose Raul Nicole 20:41:00 [facility] BONE DENSITY 2022-06-14 Jose Raul Nicole 20:20:00 [facility] SHANELLE-GAYLE VIRUS ANTIBODY TEST 2022-06-14 Jose Raul Nicole 18:37:00 [facility] THC METABOLITE, S/P, QUANT 2022-06-14 Jose Raul Nicoleo dist 18:37:00 [facility] BASIC METABOLIC PANEL 2022-06-14 Jose Raul Nicole 18:37:00 [facility] HEPATIC FUNCTION PANEL 2022-06-14 Jose Raul Nicole 18:37:00 [facility] LIPID PANEL 2022-06-14 Jose Raul Nicole 18:37:00 [facility] LIPOPROTEIN (A) 2022-06-14 Jose Raul Nicole 18:37:00 [facility] GGT 2022-06-14 Jose Raul Nicole 18:37:00 [facility] TOTAL IRON BINDING CAPACITY 2022-06-14 Jose Raul Nicole Meth odist 18:37:00 [facility] FERRITIN LEVEL 2022-06-14 Jose Raul Nicole Rastafarian 18:37:00 [facility] MAGNESIUM LEVEL 2022-06-14 Jose Raul Nicole Rastafarian 18:37:00 [facility] PHOSPHORUS LEVEL 2022-06-14 Jose Raul Nicole Rastafarian 18:37:00 [facility] VITAMIN D 25 HYDROXY LEVEL 2022-06-14 Jose Raul Nicole Metho dist 18:37:00 [facility] THYROID STIMULATING HORMONE 2022-06-14 Jose Raul Nicole Meth odist 18:37:00 [facility] ANTINUCLEAR ANTIBODIES (LUIS ANGEL) WITH 2022-06-14 Maximiliano Nicole Rastafarian REFLEX TO TITER AND PATTERN, 18:37:00 [facility] IMMUNOFLUORESCENCE CYTOMEGALOVIRUS AB, IGG 2022-06-14 Jose Raul Nicole Methodis t 18:37:00 [facility] CYTOMEGALOVIRUS AB, IGM 2022-06-14 Jose Raul Nicole Methodis t 18:37:00 [facility] HEMOGLOBIN A1C 2022-06-14 Jose Raul Nicole Rastafarian 18:37:00 [facility] HEPATITIS A ANTIBODY TOTAL 2022-06-14 Jose Raul Nicole Metho dist 18:37:00 [facility] HEPATITIS A ANTIBODY IGM 2022-06-[address] 18:37:00 [facility] HEPATITIS B SURFACE ANTIGEN 2022-06-14 Jose Raul Nicole odist 18:37:00 [facility] HEPATITIS B SURFACE ANTIBODY 2022-06-14 Jose Raul Nicole hodist 18:37:00 [facility] HEPATITIS B CORE ANTIBODY TOTAL 2022-06-14 Jose Raul Nicole Rastafarian 18:37:00 [facility] HEPATITIS C ANTIBODY 2022-06-14 Jose Raul Nicole Rastafarian 18:37:00 [facility] HIV 1/2 ANTIGEN/ANTIBODY, FOURTH 2022-06-14 Jose Raul Nicole Rastafarian GENERATION, WITH REFLEXES 18:37:00 [facility] SYPHILIS TREPONEMA SCREEN WITH RPR 2022-06-14 Jules Nicole CONFIRMATION (REVERSE ALGORITHM) 18:37:00 [facility] SMOOTH MUSCLE ANTIBODIES WITH 2022-06-14 Jose Raul Nicole thodist REFLEX TO TITER, IFA 18:37:00 [facility] CBC WITH PLATELET AND DIFFERENTIAL 2022-06-14 Jules Nicole 18:37:00 [facility] PROTHROMBIN TIME WITH INR 2022-06-14 Jose Raul Nicole ist 18:37:00 [facility] PARTIAL THROMBOPLASTIN TIME (PTT) 2022-06-14 Maximiliano Nicole 18:37:00 [facility] ABORH - TRANSPLANT 2022-06-14 Jose Raul Nicole 18:37:00 [facility] ALCOHOL LEVEL, BLOOD 2022-06-14 Jose Raul Nicole 18:37:00 [facility] ALPHA FETOPROTEIN 2022-06-14 Jose Raul Nicole 18:37:00 [facility] CARCINOEMBRYONIC ANTIGEN (CEA) 2022-06-14 Jose Raul Nicole ethodist 18:37:00 [facility] CANCER ANTIGEN 19-9 2022-06-14 Jose Raul Nicole 18:37:00 [facility] ALPHA-1 ANTITRYPSIN LEVEL 2022-06-14 Jose Raul Nicole ist 18:37:00 [facility] CERULOPLASMIN LEVEL 2022-06-14 Jose Raul Nicole 18:37:00 [facility] FIBRINOGEN 2022-06-14 Jose Raul Nicole 18:37:00 [facility] TB T-SPOT 2022-06-14 Jose Raul Nicole 18:37:00 [facility] C-REACTIVE PROTEIN 2022-06-14 Jose Raul Nicole 18:37:00 [facility] PREALBUMIN LEVEL 2022-06-14 Jose Raul Nicole 18:37:00 [facility] ZINC LEVEL, SERUM 2022-06-14 Jose Raul Nicole 18:37:00 [facility] DRUG ROSS 9, SER/JESI, SCRN W/RFLX 2022-06-14 Jose Raul Nicole TO CONF 18:37:00 [facility] ESTIMATED GFR 2022-06-14 Jose Raul Nicole 18:37:00 [facility] PHOSPHATIDYLETHANOL, BLOOD 2022-06-14 Jose Raul Nicole Metho dist 18:37:00 [facility] SMEAR REVIEW 2022-06-14 Jose Raul Nicole 18:37:00 [facility] SINGLE ANTIGEN BEADS 2022-06-14 Jose Raul Nicole 18:37:00 [facility] SMOOTH MUSCLE ANTIBODIES TITER 2022-06-14 Jose Raul Nicole ethodist 18:37:00 [facility] ECG 12-LEAD 2022-06-14 Jose Raul Nicole 15:46:40 [facility] ESTIMATED GFR 2022-05-30 Carolin Sanchesist 12:11:00 Hospital BASIC METABOLIC PANEL 2022-05-30 Bebeto Ward Rastafarian 12:00:00 Hospital HEPATIC FUNCTION PANEL 2022-05-30 Bebeto Wardis t 12:00:00 Hospital MAGNESIUM LEVEL 2022-05-30 Bebeto Wardist 12:00:00 Hospital PHOSPHORUS LEVEL 2022-05-30 Ward, Bebeto Rastafarian 12:00:00 Hospital PROTHROMBIN TIME WITH INR 2022-05-30 Bebeto Ward Metho dist 12:00:00 Hospital ESTIMATED GFR 2022-05-30 Bebeto Ward 12:00:00 Hospital CBC WITH PLATELET AND DIFFERENTIAL 2022-05-29 Carolin Sanches Rastafarian 11:20:00 Hospital BASIC METABOLIC PANEL 2022-05-29 Carolin Sanches Rastafarian 11:20:00 Hospital HEPATIC FUNCTION PANEL 2022-05-29 Carolin Sanches Rastafarian 11:20:00 Hospital MAGNESIUM LEVEL 2022-05-29 Carolin Sanches Rastafarian 11:20:00 Hospital PHOSPHORUS LEVEL 2022-05-29 Carolin Sanches Rastafarian 11:20:00 Hospital PROTHROMBIN TIME WITH INR 2022-05-29 Carolin Sanches Method ist 11:20:00 Hospital ESTIMATED GFR 2022-05-29 Carolin Sanches Rastafarian 11:20:00 Hospital SMEAR REVIEW 2022-05-29 Sanches, Coe M. Rastafarian 11:20:00 Hospital UPPER GI TRACT, ENDOSCOPIC 2022-05-28 Carolin Sanches Hi thodist 22:06:00 Hospital CBC WITH PLATELET AND DIFFERENTIAL 2022-05-28 Carolin Sanches Rastafarian 10:58:00 Hospital BASIC METABOLIC PANEL 2022-05-28 Carolin Sanches Rastafarian 10:58:00 Hospital HEPATIC FUNCTION PANEL 2022-05-28 Carolin Sanches Rastafarian 10:58:00 Hospital MAGNESIUM LEVEL 2022-05-28 Carolin Sanches Rastafarian 10:58:00 Hospital PHOSPHORUS LEVEL 2022-05-28 Carolin Sanches Rastafarian 10:58:00 Hospital PROTHROMBIN TIME WITH INR 2022-05-28 Carolin Sanches Method ist 10:58:00 Hospital ESTIMATED GFR 2022-05-28 Anabella Suresh 10:58:00 [facility] COVID-19 QUALITATIVE RT-PCR 2022-05-27 Carolin Sanches Meth odist 19:50:00 Hospital CBC WITH PLATELET AND DIFFERENTIAL 2022-05-27 Carolin Sanches Rastafarian 10:50:00 Hospital BASIC METABOLIC PANEL 2022-05-27 Carolin Sanches Rastafarian 10:50:00 Hospital HEPATIC FUNCTION PANEL 2022-05-27 Carolin Sanches Rastafarian 10:50:00 Hospital MAGNESIUM LEVEL 2022-05-27 Carolin Sanches Rastafarian 10:50:00 Hospital PHOSPHORUS LEVEL 2022-05-27 Carolin Sanches Rastafarian 10:50:00 Hospital PROTHROMBIN TIME WITH INR 2022-05-27 Carolin Sanches Method ist 10:50:00 Hospital ESTIMATED GFR 2022-05-27 Anabella Suresh 10:50:00 [facility] SMEAR REVIEW 2022-05-27 Anabella Suresh 10:50:00 [facility] XR ABDOMEN 1 VW PORTABLE 2022-05-27 Myra Garcia Meth odist 03:05:14 [facility] CBC WITH PLATELET AND DIFFERENTIAL 2022-05-26 Carolin Sanches Rastafarian 08:48:00 Hospital BASIC METABOLIC PANEL 2022-05-26 Carolin Sanches Rastafarian 08:48:00 Hospital HEPATIC FUNCTION PANEL 2022-05-26 Carolin Sanches Rastafarian 08:48:00 Hospital MAGNESIUM LEVEL 2022-05-26 Carolin Sanches Rastafarian 08:48:00 Hospital PHOSPHORUS LEVEL 2022-05-26 Carolin Sanches Rastafarian 08:48:00 Hospital PROTHROMBIN TIME WITH INR 2022-05-26 Carolin Sanches Method ist 08:48:00 Hospital ESTIMATED GFR 2022-05-26 Anabella Suresh 08:48:00 [facility] URINE CULTURE 2022-05-26 Radha Lin Rastafarian 07:22:00 Hospital URINALYSIS SCREEN AND MICROSCOPY, 2022-05-26 Radha Lin Rastafarian WITH REFLEX TO CULTURE 05:01:00 [facility] MRI CHOLANGIOGRAM W WO CONTRAST 2022-05-25 Rylee Garcia Rastafarian 20:35:00 [facility] CBC WITH PLATELET AND DIFFERENTIAL 2022-05-25 Carolin Sanches Rastafarian 08:57:00 [facility] BASIC METABOLIC PANEL 2022-05-25 Carolin Sanches Rastafarian 08:57:00 [facility] HEPATIC FUNCTION PANEL 2022-05-25 Carolin Sanches Rastafarian 08:57:00 Hospital LIPASE LEVEL 2022-05-25 Anabella Suresh 08:57:00 [facility] ESTIMATED GFR 2022-05-25 MaydaAnabella Bunn 08:57:00 [facility] CT ABDOMEN PELVIS WO CONTRAST 2022-05-25 Radha Lin Hi thodist 02:26:53 Hospital ECG ED PRELIMINARY INTERPRETATION 2022-05-25 Radha Lin 02:01:22 Hospital BLOOD CULTURE, AEROBIC & ANAEROBIC 2022-05-25 Robel Lin 01:40:00 Hospital AMMONIA LEVEL 2022-05-25 Radha Lin 01:39:00 Hospital BLOOD CULTURE, AEROBIC & ANAEROBIC 2022-05-25 Robel Lin 01:05:00 Hospital CBC WITH PLATELET AND DIFFERENTIAL 2022-05-25 Lin, Mudassi r Rastafarian 00:58:00 Hospital HEPATIC FUNCTION PANEL 2022-05-25 Radha Lin Rastaf[facility] 00:58:00 Hospital BASIC METABOLIC PANEL 2022-05-25 aRdha Lin [facility] 00:58:00 Hospital LIPASE LEVEL 2022-05-25 Radha Lin [facility] 00:58:00 Hospital PROTHROMBIN TIME WITH INR 2022-05-25 Radha Lin Method ist 00:58:00 Hospital PARTIAL THROMBOPLASTIN TIME (PTT) 2022-05-25 Radha Lin [facility] 00:58:00 Hospital ESTIMATED GFR 2022-05-25 Radha Lin [facility] 00:58:00 Hospital ECG 12-LEAD 2022-05-24 Radha Linist 23:16:23 [facility] CBC WITH PLATELET AND DIFFERENTIAL 2022-05-20 Laci Garcia Rast[facility]arian 11:33:00 [facility] SMEAR REVIEW 2022-05-20 Myra Garcia 11:33:00 [facility] ESOPHAGOGASTRODUODENOSCOPY (EGD) 2022-05-19 Elias Guzman 22:20:00 Hospital COLONOSCOPY 2022-05-19 Elias Guzman 22:20:00 Hospital TRANSFUSE PLATELET PHERESIS 2022-05-19 Myra Garcia 20:35:00 [facility] TRANSFUSE FRESH FROZEN PLASMA 2022-05-19 Myra Garcia 18:50:00 [facility] NEED PHYS SKILL,DX OR RX 2022-05-19 Nav Rooney in Rastafarian 18:12:02 [facility] CBC WITH PLATELET AND DIFFERENTIAL 2022-05-19 Laci Garcia Rastafarian 10:42:00 [facility] COMPREHENSIVE METABOLIC PANEL 2022-05-19 Anand Aroraodist 10:42:00 [facility] MAGNESIUM LEVEL 2022-05-19 Maite Anand Rastafarian 10:42:00 [facility] PHOSPHORUS LEVEL 2022-05-19 Maite Anand Rastafarian 10:42:00 [facility] PROTHROMBIN TIME WITH INR 2022-05-19 Anand Arora Method ist 10:42:00 [facility] ESTIMATED GFR 2022-05-19 Maite, Anand Rastafarian 10:42:00 [facility] SMEAR REVIEW 2022-05-19 Myra Garciaist 10:42:00 [facility] COVID-19 QUALITATIVE RT-PCR 2022-05-18 Myra Garcia 23:42:00 [facility] CBC WITH PLATELET AND DIFFERENTIAL 2022-05-18 Laci Garciaist 10:30:00 [facility] COMPREHENSIVE METABOLIC PANEL 2022-05-18 Maite, Anand Me thodist 10:30:00 [facility] MAGNESIUM LEVEL 2022-05-18 Maite, Anand Rastafarian 10:30:00 [facility] PHOSPHORUS LEVEL 2022-05-18 Maite, Anand Rastafarian 10:30:00 [facility] TYPE AND SCREEN 2022-05-18 Maite, Anand Rastafarian 10:30:00 [facility] PROTHROMBIN TIME WITH INR 2022-05-18 Maite, Anand Method ist 10:30:00 [facility] ESTIMATED GFR 2022-05-18 Maite, Anand Rastafarian 10:30:00 [facility] SMEAR REVIEW 2022-05-18 Myra Garcia 10:30:00 [facility] PREPARE FRESH FROZEN PLASMA 2022-05-18 Myra Garcia 10:30:00 [facility] PREPARE PLATELET PHERESIS 2022-05-18 Myra Garcia 10:30:00 [facility] B NATRIURETIC PEPTIDE 2022-05-18 Fadi Thomasis t 00:14:00 [facility] XR CHEST 1 VW PORTABLE 2022-05-17 Myra Garcia ist 22:07:00 [facility] CBC WITH PLATELET AND DIFFERENTIAL 2022-05-17 Maite, Anand Rastafarian 11:08:00 [facility] COMPREHENSIVE METABOLIC PANEL 2022-05-17 Maite, Anand Me thodist 11:08:00 [facility] PROTHROMBIN TIME WITH INR 2022-05-17 Maite, Anand Method ist 11:08:00 [facility] ESTIMATED GFR 2022-05-17 Maite, Anand Rastafarian 11:08:00 [facility] SMEAR REVIEW 2022-05-17 Maite, Anand Rastafarian 11:08:00 [facility] CBC WITH PLATELET AND DIFFERENTIAL 2022-05-16 Anand Arora Rastafarian 11:27:00 [facility] COMPREHENSIVE METABOLIC PANEL 2022-05-16 Anand Arora thodist 11:27:00 [facility] PROTHROMBIN TIME WITH INR 2022-05-16 Anand Arora Method ist 11:27:00 [facility] ESTIMATED GFR 2022-05-16 Anand Arora Rastafarian 11:27:00 [facility] CREATINE KINASE, TOTAL (CPK) 2022-05-16 Anand Arora Met hodist 11:27:00 [facility] SMEAR REVIEW 2022-05-16 Anand Arora Rastafarian 11:27:00 [facility] BLOOD CULTURE, AEROBIC & ANAEROBIC 2022-05-15 Leah Sandoval Rastafarian 12:56:00 [facility] CBC WITH PLATELET AND DIFFERENTIAL 2022-05-15 Laci Garcia Rastafarian 11:11:00 [facility] CREATINE KINASE, TOTAL (CPK) 2022-05-15 Jeremy Sandoval hodist 11:11:00 [facility] COMPREHENSIVE METABOLIC PANEL 2022-05-15 Jeremy Sandoval 11:11:00 [facility] PROTHROMBIN TIME WITH INR 2022-05-15 Jeremy Sandoval Method ist 11:11:00 [facility] ESTIMATED GFR 2022-05-15 Jeremy Sandoval Rastafarian 11:11:00 [facility] SMEAR REVIEW 2022-05-15 Myra Garcia Rastafarian 11:11:00 [facility] CT ANGIOGRAM PE CHEST 2022-05-14 Jeremy Sandoval Rastafarian 20:38:17 [facility] CBC WITH PLATELET AND DIFFERENTIAL 2022-05-14 Laci Garcia Rastafarian 12:29:00 [facility] COMPREHENSIVE METABOLIC PANEL 2022-05-14 Jeremy Sandovalst 12:29:00 [facility] PROTHROMBIN TIME WITH INR 2022-05-14 Jeremy Sandoval Method ist 12:29:00 [facility] ESTIMATED GFR 2022-05-14 Jeremy Sandoval Rastafarian 12:29:00 [facility] SMEAR REVIEW 2022-05-14 Myra Garcia 12:29:00 [facility] MRI HIP WWO CONTRAST RT 2022-05-13 Neelima Pettit Method ist 20:11:00 [facility] MRI THIGH W WO CONTRAST LEFT 2022-05-13 Beverly Thompson hodist 19:57:00 Hospital VANCOMYCIN LEVEL, TROUGH 2022-05-[address] 09:42:00 [facility] TOTAL IRON BINDING CAPACITY 2022-05-13 Myra Garcia ethodi 09:42:00 [facility] FERRITIN LEVEL 2022-05-13 Myra Garcia 09:42:00 [facility] CBC WITH PLATELET AND DIFFERENTIAL 2022-05-13 Laci Garcia 09:42:00 [facility] COMPREHENSIVE METABOLIC PANEL 2022-05-13 Jeremy Sandovalodi 09:42:00 [facility] PROTHROMBIN TIME WITH INR 2022-05-13 Jeremy Sandoval ist 09:42:00 [facility] ESTIMATED GFR 2022-05-13 Jeremy Sandoval Rastafarian 09:42:00 [facility] SMEAR REVIEW 2022-05-13 Myra Garcia 09:42:00 [facility] CREATINE KINASE, TOTAL (CPK) 2022-05-13 Jeremy Sandoval hodist 09:42:00 [facility] OCCULT BLOOD, STOOL 2022-05-13 Myra Garcia 00:59:00 [facility] TRANSFUSE RED BLOOD CELLS 2022-05-12 Jeremy Sandoval Method ist 17:00:00 [facility] ALDOLASE, SERUM 2022-05-12 Beverly Thompson Rastafarian 10:36:00 Hospital MYOGLOBIN 2022-05-12 Beverly Thompson Rastafarian 10:36:00 Hospital CBC WITH PLATELET AND DIFFERENTIAL 2022-05-12 Leah Sandoval Rastafarian 10:36:00 [facility] PROTHROMBIN TIME WITH INR 2022-05-12 Jeremy Sandoval Method ist 10:36:00 [facility] PHOSPHORUS LEVEL 2022-05-12 Jeremy Sandoval Rastafarian 10:36:00 [facility] TYPE AND SCREEN 2022-05-12 Jeremy Sandoval 10:36:00 [facility] BASIC METABOLIC PANEL 2022-05-12 Jeremy Sandoval 10:36:00 [facility] HEPATIC FUNCTION PANEL 2022-05-12 Jeremy Sandoval 10:36:00 [facility] MAGNESIUM LEVEL 2022-05-12 Jeremy Sandoval 10:36:00 [facility] ESTIMATED GFR 2022-05-12 Jeremy Sandoval 10:36:00 [facility] SMEAR REVIEW 2022-05-12 Jeremy Sandoval 10:36:00 [facility] PREPARE RBC 2022-05-12 Jeremy Sandoval 10:36:00 [facility] ESTIMATED GFR 2022-05-12 Jeremy Sandoval 09:48:00 [facility] XR HIP 2-3 VIEWS RIGHT 2022-05-[address] 05:48:10 [facility] XR ABDOMEN 1 VW PORTABLE 2022-05-[address] 03:18:49 [facility] ECG 12-LEAD 2022-05-12 Jeremy Sandoval 02:48:48 [facility] TROPONIN T 2022-05-12 Jeremy Sandoval 02:16:00 [facility] XR ABDOMEN 1 VW PORTABLE 2022-05-11 Myra Garcia odist 23:42:38 [facility] VENIPUNC NEED PHYS SKILL,DX OR RX 2022-05-11 David Lambert 18:13:11 Hospital LDH 2022-05-11 Jeremy Sandoval 11:15:00 [facility] SS-B ANTIBODY 2022-05-11 Jeremy Sandoval 11:15:00 [facility] SEDIMENTATION RATE 2022-05-11 Jeremy Sandoval 11:15:00 [facility] C-REACTIVE PROTEIN 2022-05-11 Jeremy Sandoval 11:15:00 [facility] ALDOLASE, SERUM 2022-05-11 Skylar Lopez 11:15:00 Hospital ANTINUCLEAR ANTIBODIES (LUIS ANGEL) WITH 2022-05-11 Parveen Lopez REFLEX TO TITER AND PATTERN, 11:15:00 Hos pital IMMUNOFLUORESCENCE PROTHROMBIN TIME WITH INR 2022-05-11 DinJeremy hernandez Method ist 11:15:00 [facility] CBC WITH PLATELET AND DIFFERENTIAL 2022-05-11 Leah Sandoval Rastafarian 11:15:00 [facility] BASIC METABOLIC PANEL 2022-05-11 DinakarJeremy Rastafarian 11:15:00 [facility] ESTIMATED GFR 2022-05-11 Jeremy Sandoval Rastafarian 11:15:00 [facility] HEPATIC FUNCTION PANEL 2022-05-11 Dinakar, Jeremy Rastafarian 11:15:00 [facility] MAGNESIUM LEVEL 2022-05-11 DinhomarJeremy Rastafarian 11:15:00 [facility] PHOSPHORUS LEVEL 2022-05-11 DinhomarJeremy Rastafarian 11:15:00 [facility] SMEAR REVIEW 2022-05-11 Jeremy Sandoval Rastafarian 11:15:00 [facility] CBC WITH PLATELET AND DIFFERENTIAL 2022-05-10 MaiteAndriye Rastafarian 12:52:00 [facility] COMPREHENSIVE METABOLIC PANEL 2022-05-10 Maite Anand Me thodist 12:52:00 [facility] PROTHROMBIN TIME WITH INR 2022-05-10 Maite Anand Method ist 12:52:00 [facility] CREATINE KINASE, TOTAL (CPK) 2022-05-10 Jeremy Sandoval hodist 12:52:00 [facility] ESTIMATED GFR 2022-05-10 Maite Anand Rastafarian 12:52:00 [facility] SMEAR REVIEW 2022-05-10 Maite Anand Rastafarian 12:52:00 [facility] ENTERIC BACTERIAL PANEL 2022-05-09 Maite, Anand Methodis t 22:01:00 [facility] ENTERIC PARASITIC PANEL 2022-05-09 Maite, Anand Methodis t 22:01:00 [facility] ENTERIC VIRAL PANEL 2022-05-09 Maite, Anand Rastafarian 22:01:00 [facility] CBC WITH PLATELET AND DIFFERENTIAL 2022-05-09 Maite, Anand Rastafarian 11:40:00 [facility] COMPREHENSIVE METABOLIC PANEL 2022-05-09 Maite, Anand Me thodist 11:40:00 [facility] PROTHROMBIN TIME WITH INR 2022-05-09 Maite, Anand Method ist 11:40:00 [facility] MAGNESIUM LEVEL 2022-05-09 Jeremy Sandoval Rastafarian 11:40:00 [facility] PHOSPHORUS LEVEL 2022-05-09 DinarJeremy Rastafarian 11:40:00 [facility] ESTIMATED GFR 2022-05-09 Maite, Anand Rastafarian 11:40:00 [facility] SMEAR REVIEW 2022-05-09 Maite Anand Rastafarian 11:40:00 [facility] CREATINE KINASE, TOTAL (CPK) 2022-05-09 Jeremy Sandoval hodnohelia 00:45:00 [facility] XR KNEE 3 VW BILATERAL 2022-05-08 Jeremy Sandoval 21:35:00 [facility] BLOOD CULTURE, AEROBIC & ANAEROBIC 2022-05-08 Leah Sandoval Rastafarian 21:17:00 [facility] XR CHEST 1 VW PORTABLE 2022-05-08 Jeremy Sandoval Rastafarian 16:17:21 [facility] CBC WITH PLATELET AND DIFFERENTIAL 2022-05-08 Maite, Anand Rastafarian 11:00:00 [facility] PROTHROMBIN TIME WITH INR 2022-05-08 Maite, Anand Method ist 11:00:00 [facility] MAGNESIUM LEVEL 2022-05-08 Maite, Anand Rastafarian 11:00:00 [facility] PHOSPHORUS LEVEL 2022-05-08 Maite, Anand Rastafarian 11:00:00 [facility] COMPREHENSIVE METABOLIC PANEL 2022-05-08 Andriy Arorae thodist 11:00:00 [facility] ESTIMATED GFR 2022-05-08 Maite, Anand Rastafarian 11:00:00 [facility] SMEAR REVIEW 2022-05-08 Maite, Anand Rastafarian 11:00:00 [facility] ESTIMATED GFR 2022-05-08 Maite, Anand Rastafarian 08:33:00 [facility] US DUPLEX VENOUS LOWER EXTREMITY 2022-05-07 Manjit Garcia BILATERAL 20:55:00 [facility] ALPHA FETOPROTEIN 2022-05-07 Myra Garcia 09:36:00 [facility] PROTHROMBIN TIME WITH INR 2022-05-07 Myra Garcia hodist 09:36:[address] [facility] [address] ABDOMEN PELVIS W CONTRAST 2022-05-06 Oneil Rodriguez Met hodist 22:48:13 Hospital URINE CULTURE 2022-05-06 Aimee Ward 22:05:00 [facility] URINALYSIS SCREEN AND MICROSCOPY, 2022-05-06 Hemant Wardist WITH REFLEX TO CULTURE 21:43:00 Hospital COVID-19, INFLUENZA A&B, AND RSV 2022-05-06 Aimee Ward QUALITATIVE RT-PCR 21:13:00 [facility] CBC WITH PLATELET AND DIFFERENTIAL 2022-05-06 Fidel Ward 20:15:00 [facility] COMPREHENSIVE METABOLIC PANEL 2022-05-06 Aimee Ward 20:15:00 Hospital LIPASE LEVEL 2022-05-06 Aimee Ward 20:15:00 [facility] ESTIMATED GFR 2022-05-06 Aimee Ward 20:15:00 Hospital SMEAR REVIEW 2022-05-06 Aimee Ward 20:15:00 Hospital EKG-12 LEAD 2022-04-16 Estephania Flood [place] of 04:17:16 [facility] XR CHEST 2 VW 2022-04-16 Estephania Flood [place] of 03:21:40 [facility] TROPONIN I 2022-04-16 Estephania Flood [place] of 02:46:00 [facility] HEPATIC FUNCTION PANEL (72254) 2022-04-16 Estephania Flood niversity of (ALB,T.PRO,BILI 02:46:00 [facility],BU/BC,ALT,AST,ALK PHOS) Branch BASIC METABOLIC PANEL (NA, K, CL, 2022-04-16 Estephania Flood [facility] CO2, GLUCOSE, BUN, CREATININE, CA) 02:46:00 [facility] CBC WITH DIFF 2022-04-16 Estephania Flood of 02:46:00 [facility] URINALYSIS 2022-04-16 Estephania Flood [place] of 02:46:00 [facility] RAPID STREP SCREEN FOR GROUP A 2022-04-16 Estephania Flood niversity of 02:46:00 [facility] RAPID INFLUENZA A/B 2022-04-16 [facility] o f 02:46:00 [facility] N-TERMINAL PRO-BNP 2022-04-16 [facility] 02:46[facility]00 [facility] COVID-19 (ID NOW RAPID TESTING) 2022[facility]04-[facility] 02:[facility]00 [facility] NOTICE OF PRIVACY PRACTICES 2022-04-16 Doctor Unassigned, U niversity of 02:08:07 [place] [facility] CONSENT/REFUSAL FOR DIAGNOSIS AND 2022-04-16 Doctor Buck olmedo, [facility] 02:07:40 [place] [facility] CREATINE KINASE 2022-04-10 Emily Salgado [place] of 02:05:00 [facility] MAGNESIUM 2022-04-10 Emily Salgado [facility] 02:05:00 [facility] AMMONIA, PLASMA 2022-04-10 Emily Salgado [facility] 02:05:00 [facility] COMP. METABOLIC PANEL (20619) 2022-04-10 Emily Salgado [facility]iversity of 02:05:00 [facility] CBC WITH DIFF 2022-04-10 Emily Salgado [facility] 02:05:00 [facility] PROTHROMBIN TIME / INR 2022-04-10 [facility] 02:05:00 [facility] URINALYSIS 2022-04-10 Emily Salgado [facility] 02:05:00 [facility] CONSENT/REFUSAL FOR DIAGNOSIS AND 2022-04-10 Doctor Buck olmedo, [facility] 01:08:41 [place] [facility] XR SHOULDER 2+ VW LEFT 2022-02-27 Viviana Ward 15:01:00 Hospital CBC WITH PLATELET AND DIFFERENTIAL 2022-02-27 Leah Sandoval Rastafarian 10:39:00 [facility] PROTHROMBIN TIME WITH INR 2022-02-27 Jeremy Sandoval ist 10:39:00 [facility] BASIC METABOLIC PANEL 2022-02-27 Jeremy Sandoval 10:39:00 [facility] HEPATIC FUNCTION PANEL 2022-02-27 Jeremy Sandoval 10:39:00 [facility] PHOSPHORUS LEVEL 2022-02-27 Jeremy Sandoval Rastafarian 10:39:00 [facility] MAGNESIUM LEVEL 2022-02-27 Jeremy Sandoval Rastafarian 10:39:00 [facility] ESTIMATED GFR 2022-02-27 Jeremy Sandoval 10:39:00 [facility] SMEAR REVIEW 2022-02-27 Jeremy Sandoval 10:39:00 [facility] POC GLUCOSE 2022-02-27 Jeremy Sandoval 09:38:00 [facility] CBC WITH PLATELET AND DIFFERENTIAL 2022-02-26 Leah Sandoval 11:53:00 [facility] PROTHROMBIN TIME WITH INR 2022-02-26 Jeremy Sandoval Method ist 11:53:00 [facility] BASIC METABOLIC PANEL 2022-02-26 Jeremy Sandoval 11:53:00 [facility] HEPATIC FUNCTION PANEL 2022-02-26 Jeremy Sandoval Rastafarian 11:53:00 [facility] PHOSPHORUS LEVEL 2022-02-26 Jeremy Sandoval Rastafarian 11:53:00 [facility] MAGNESIUM LEVEL 2022-02-26 Jeremy Sandoval Rastafarian 11:53:00 [facility] HEMOGLOBIN A1C 2022-02-26 Jeremy Sandoval Rastafarian 11:53:00 [facility] ESTIMATED GFR 2022-02-26 Jeremy Sandoval 11:53:00 [facility] SMEAR REVIEW 2022-02-26 Jeremy Sandoval Rastafarian 11:53:00 [facility] AMYLASE LEVEL 2022-02-26 Jeremy Sandoval Rastafarian 11:53:00 [facility] GASTROINTESTINAL PANEL 2022-02-26 Myra Garcia ist 03:50:00 [facility] GASTROINTESTINAL PATHOGENS PANEL, 2022-02-26 Faustino Garcia Rastafarian PCR 03:50:00 [facility] BLOOD CULTURE, AEROBIC & ANAEROBIC 2022-02-25 Laci Garcia 23:25:00 [facility] COVID-19 QUALITATIVE RT-PCR 2022-02-25 Stevo Hoskins 23:24:00 [facility] BLOOD CULTURE, AEROBIC & ANAEROBIC 2022-02-25 Laci Garcia Rastafarian 23:10:00 [facility] US ABDOMINAL LIMITED 2022-02-25 Myra Garcia Juan t 21:58:[address] [facility] CT ABDOMEN PELVIS W CONTRAST 2022-02-25 Rehrer, Stevo ramosist 21:28:38 [facility] ECG ED PRELIMINARY INTERPRETATION 2022-02-25 Rehrer, Stevo Rastafarian 20:37:40 [facility] PROTHROMBIN TIME WITH INR 2022-02-25 Rehrer [place] Method ist 20:18:00 [facility] PARTIAL THROMBOPLASTIN TIME (PTT) 2022-02-25 Rehrer, [place] Rastafarian 20:18:00 [facility] CBC WITH PLATELET AND DIFFERENTIAL 2022-02-25 Rehrer, Stevo Rastafarian 19:55:00 [facility] COMPREHENSIVE METABOLIC PANEL 2022-02-25 Rehrer, Stevo thodist 19:55:00 [facility] LIPASE LEVEL 2022-02-25 Rehrer, [place] Rastafarian 19:55:00 [facility] ESTIMATED GFR 2022-02-25 Rehrer, Stevo Rastafarian 19:55:00 [facility] ECG 12-LEAD 2022-02-25 Rehrer, [place] Rastafarian 18:42:27 [facility] RAPID INFLUENZA A/B 2022-02-15 Singer Florian Peggy o f 21:31:00 [facility] COVID-19 (ID NOW RAPID TESTING) 2022-02-15 [facility] of 21:31:00 [facility] URINALYSIS 2022-02-15 Singer [facility] of 21:04:[address] [facility] [address] ABDOMEN PELVIS W CONTRAST 2022-02-15 Florian Ayers Uni versity of 20:35:57 [facility] LIPASE 2022-02-15 Ayers, [facility] of 20:15:00 [facility] COMP. METABOLIC PANEL (13391) 2022-02-15 Florian Ayers Un iversity of 20:15:00 [facility] CBC WITH DIFF 2022-02-15 Singer [facility] of 20:15:00 [facility] CONSENT/REFUSAL FOR DIAGNOSIS AND 2022-02-15 Doctor Buck olmedo, [facility] 19:31:00 [place] [facility] PROTHROMBIN TIME WITH INR 2022-02-04 Sanches, Coe M. Method ist 11:20:00 Hospital PHOSPHORUS LEVEL 2022-02-04 SanchesCarolin Rastafarian 11:20:00 Hospital MAGNESIUM LEVEL 2022-02-04 SanchesCarolin Rastafarian 11:20:00 Hospital BASIC METABOLIC PANEL 2022-02-04 Carolin Sanches Rastafarian 11:20:00 Hospital HEPATIC FUNCTION PANEL 2022-02-04 SanchesCarolin french Rastafarian 11:20:00 Hospital CBC HEMOGRAM 2022-02-04 SanchesCarolin french Rastafarian 11:20:00 Hospital ESTIMATED GFR 2022-02-04 SanchesCarolin Rastafarian 11:20:00 Hospital SMEAR REVIEW 2022-02-04 Carolin Sanches Rastafarian 11:20:00 Hospital US UPPER GI TRACT, ENDOSCOPIC 2022-02-03 Carolin Sanches Me thodist 19:36:00 Hospital PROTHROMBIN TIME WITH INR 2022-02-03 Carolin Sancehs Method ist 09:29:00 Hospital PHOSPHORUS LEVEL 2022-02-03 SanchesCarolin french Rastafarian 09:29:00 Hospital MAGNESIUM LEVEL 2022-02-03 Carolin Sanches Rastafarian 09:29:00 Hospital BASIC METABOLIC PANEL 2022-02-03 Carolin Sanches Rastafarian 09:29:00 Hospital HEPATIC FUNCTION PANEL 2022-02-03 Carolin Sanches Rastafarian 09:29:00 Hospital CBC HEMOGRAM 2022-02-03 Carolin Sanches Rastafarian 09:29:00 Hospital ESTIMATED GFR 2022-02-03 Nakia Cruz Rastafarian 09:29:00 Hospital SMEAR REVIEW 2022-02-03 Vignesh Cruzuang Rastafarian 09:29:00 Hospital PROTHROMBIN TIME WITH INR 2022-02-02 Carolin Sanches Method ist 09:08:00 Hospital PHOSPHORUS LEVEL 2022-02-02 Carolin Sanches Rastafarian 09:08:00 Hospital MAGNESIUM LEVEL 2022-02-02 Carolin Sanches Rastafarian 09:08:00 Hospital BASIC METABOLIC PANEL 2022-02-02 Carolin Sanches Rastafarian 09:08:00 Hospital HEPATIC FUNCTION PANEL 2022-02-02 Carolin Sanches Rastafarian 09:08:00 Hospital CBC HEMOGRAM 2022-02-02 Carolin Sanches Rastafarian 09:08:00 Hospital ESTIMATED GFR 2022-02-02 Nakia Cruz 09:08:00 Hospital SMEAR REVIEW 2022-02-02 Nakia Cruz Rastafarian 09:08:00 Hospital XR ABDOMEN 1 VW PORTABLE 2022-02-01 Myra Garcia odist 22:39:25 [facility]-19 ANTI-SPIKE IGG ANTIBODY 2022-02-01 Deepak Ward Rastafarian TITER 11:37:00 Hospital CBC WITH PLATELET AND DIFFERENTIAL 2022-02-01 Deepak Wardist 11:37:00 Hospital PROTHROMBIN TIME WITH INR 2022-02-01 Carolin Sanches Method ist 11:37:00 [facility] COMPREHENSIVE METABOLIC PANEL 2022-02-01 Bebeto Wardodist 11:37:00 Hospital PHOSPHORUS LEVEL 2022-02-01 Carolin Sanches Rastafarian 11:37:00 Hospital MAGNESIUM LEVEL 2022-02-01 Carolin Sanches Rastafarian 11:37:00 [facility] THYROID STIMULATING HORMONE 2022-02-01 Bebeto Ward Met hodist 11:37:00 Hospital T4 2022-02-01 Bebeto Wardist 11:37:00 [facility] VITAMIN D 25 HYDROXY LEVEL 2022-02-01 Bebeto Ward odist 11:37:00 [facility]-19 SEROLOGY PATIENT 2022-02-01 Bebeto Ward Met hodist SURVEILLANCE 11:37:00 Hospital ESTIMATED GFR 2022-02-01 Bebeto Wardist 11:37:00 Hospital SMEAR REVIEW 2022-02-01 Bebeto Ward 11:37:00 [facility] COVID-19 QUALITATIVE RT-PCR 2022-02-01 June Clark hodist 03:59:00 [facility] LACTIC ACID LEVEL, SEPSIS - NOW 2022-02-01 Bebeto Ward AND REPEAT 2X EVERY 3 HOURS 03:45:[address] ABDOMEN PELVIS W CONTRAST 2022-02-01 June Clark thodist 02:53:55 [facility] BLOOD CULTURE, AEROBIC & ANAEROBIC 2022-02-01 Johnna Clark Rastafarian 02:09:00 [facility] URINE CULTURE 2022-02-01 June Clark 01:50:00 [facility] URINALYSIS SCREEN AND MICROSCOPY, 2022-02-01 Cristopher Clarkist WITH REFLEX TO CULTURE 01:50:00 [facility] COMPREHENSIVE METABOLIC PANEL 2022-02-01 Rolando Olivier 01:47:00 Hospital LIPASE LEVEL 2022-02-01 Rolando Olivier 01:47:00 Hospital ESTIMATED GFR 2022-02-01 Rolando Olivier 01:47:00 Hospital LACTIC ACID LEVEL, SEPSIS - NOW 2022-02-01 Bebeto Ward Rastafarian AND REPEAT 2X EVERY 3 HOURS 01:47:00 [facility] ital PROTHROMBIN TIME WITH INR 2022-02-01 June Clark Metho dist 01:47:00 [facility] PARTIAL THROMBOPLASTIN TIME (PTT) 2022-02-01 Cristopher Clark Rastafarian 01:47:00 [facility] AMMONIA LEVEL 2022-02-01 June Clark 01:47:00 [facility] BLOOD CULTURE, AEROBIC & ANAEROBIC 2022-02-01 Johnna Clark Rastafarian 01:45:00 [facility] ECG ED PRELIMINARY INTERPRETATION 2022-02-01 Cristopher Clark 01:18:19 [facility] URINE CULTURE 2022-02-01 Rolando Olivierist 01:17:00 Hospital CBC WITH PLATELET AND DIFFERENTIAL 2022-02-01 Rolando Olivier 01:17:00 Hospital URINALYSIS SCREEN AND MICROSCOPY, 2022-02-01 Rolando Olivierist WITH REFLEX TO CULTURE 01:17:00 Hospital SMEAR REVIEW 2022-02-01 Rolando Olivier 01:17:00 Hospital ECG 12-LEAD 2022-01-31 Rolando Olivier 23:14:20 Hospital POC GLUCOSE 2022-01-06 Jeremy Sandoval 17:53:00 [facility] CBC WITH PLATELET AND DIFFERENTIAL 2022-01-06 Nakia Cruz Rastafarian 09:49:00 Hospital PROTHROMBIN TIME WITH INR 2022-01-06 Nakia Cruz Method ist 09:49:00 Hospital COMPREHENSIVE METABOLIC PANEL 2022-01-06 Jeremy Sandoval Me thodist 09:49:00 [facility] ESTIMATED GFR 2022-01-06 Jeremy Sandovalist 09:49:00 [facility] SMEAR REVIEW 2022-01-06 Nakia Cruz Rastafarian 09:49:00 Hospital SURGICAL PATHOLOGY REQUEST 2022-01-05 Jeremy Sandoval Metho dist 21:05:00 [facility] ESOPHAGOGASTRODUODENOSCOPY (EGD) 2022-01-05 Elias Guzman 20:55:00 Hospital CBC WITH PLATELET AND DIFFERENTIAL 2022-01-05 Nakia Cruz Rastafarian 09:38:00 Hospital PROTHROMBIN TIME WITH INR 2022-01-05 Nakia Cruz Method ist 09:38:00 Hospital COMPREHENSIVE METABOLIC PANEL 2022-01-05 Nakia Cruz thodist 09:38:00 Hospital PHOSPHORUS LEVEL 2022-01-05 Nakia Cruz Rastafarian 09:38:00 Hospital MAGNESIUM LEVEL 2022-01-05 Nakia Cruz Rastafarian 09:38:00 Hospital ESTIMATED GFR 2022-01-05 Nakia [facility] Rastafarian 09:38:00 Hospital SMEAR REVIEW 2022-01-05 Nakia Cruz Rastafarian 09:38:00 Hospital XR ABDOMEN 1 VW PORTABLE 2022-01-[address] 16:05:00 [facility] CBC WITH PLATELET AND DIFFERENTIAL 2022-01-04 Nakia Cruz Rastafarian 09:33:00 Hospital PROTHROMBIN TIME WITH INR 2022-01-04 Nakia Cruz Method ist 09:33:00 Hospital COMPREHENSIVE METABOLIC PANEL 2022-01-04 Nakia Cruz Me thodist 09:33:00 Hospital PHOSPHORUS LEVEL 2022-01-04 Nakia Cruz Rastafarian 09:33:00 Hospital MAGNESIUM LEVEL 2022-01-04 Nakia Cruz Rastafarian 09:33:00 Hospital ESTIMATED GFR 2022-01-04 Nakia Cruz Rastafarian 09:33:00 Hospital SMEAR REVIEW 2022-01-04 Nakia Cruz 09:33:00 Hospital XR ABDOMEN 1 VW PORTABLE 2022-01-[address] [facility]09:48 [facility]GG ANTIBODY 2022-01-03 DinaLeah potts vignesh Kyle TITER 09:01:00 [facility] CBC WITH PLATELET AND DIFFERENTIAL 2022-01-03 Nakia Cruz 09:01:00 Hospital PROTHROMBIN TIME WITH INR 2022-01-03 Nakia Cruz ist 09:01:00 Hospital COMPREHENSIVE METABOLIC PANEL 2022-01-03 Nakia Cruz thodist 09:01:00 Hospital PHOSPHORUS LEVEL 2022-01-03 Nakia Cruz 09:01:00 Hospital MAGNESIUM LEVEL 2022-01-03 Nakia Cruz 09:01:00 [facility] HEMOGLOBIN A1C 2022-01-03 Nakia Cruz 09:01:00 [facility] THYROID STIMULATING HORMONE 2022-01-03 Nakia Cruz odist 09:01:00 Hospital T4 2022-01-03 Nakia Cruz 09:01:00 Hospital VITAMIN D 25 HYDROXY LEVEL 2022-01-03 Nakia Cruzo dist 09:01:00 [facility]19 SEROLOGY PATIENT 2022-01-03 Ara Jeremy ayon SURVEILLANCE 09:01:00 [facility] AMYLASE LEVEL 2022-01-03 Cassandra Johnson 09:01:00 [facility] ESTIMATED GFR 2022-01-03 Nakia Cruz 09:01:00 Hospital SMEAR REVIEW 2022-01-03 Nakia Cruz 09:01:00 Hospital LIPASE LEVEL 2022-01-03 Nakia Cruz 09:01:00 Hospital XR ABDOMEN 1 VW PORTABLE 2022-01-02 Cassandra Johnson 15:46:00 [facility] URINALYSIS SCREEN AND MICROSCOPY, 2022-01-02 Vandana Bernstein WITH REFLEX TO CULTURE 10:37:00 [facility] HCG QUALITATIVE, URINE SCREEN 2022-01-02 Bernstein, Vandana Me thodist 10:37:00 [facility] URINE CULTURE 2022-01-02 Amandeep Vandana Rastafarian 10:34:00 [facility] COVID-19 QUALITATIVE RT-PCR 2022-01-02 Vandana Bernstein Meth odist 10:26:[address] [facility] [address] ABDOMEN PELVIS W CONTRAST 2022-01-02 Vandana Bernstein Met hodist 08:56:21 [facility] CBC WITH PLATELET AND DIFFERENTIAL 2022-01-02 mAandeep Vandana Rastafarian 05:47:00 [facility] COMPREHENSIVE METABOLIC PANEL 2022-01-02 Vandana Bernstein Me thodist 05:47:00 [facility] LIPASE LEVEL 2022-01-02 Amandeep Vandana Rastafarian 05:47:00 [facility] PROTHROMBIN TIME WITH INR 2022-01-02 AmandeepVandana Method ist 05:47:00 [facility] PARTIAL THROMBOPLASTIN TIME (PTT) 2022-01-02 Amandeep Vandana Rastafarian 05:47:00 [facility] ESTIMATED GFR 2022-01-02 Jovan Bernsteinali Rastafarian 05:47:00 [facility] SMEAR REVIEW 2022-01-02 Amandeep Vandana Rastafarian 05:47:00 [facility] CBC WITH PLATELET AND DIFFERENTIAL 2021-12-18 Leah Sandoval Rastafarian 10:19:00 [facility] PROTHROMBIN TIME WITH INR 2021-12-18 Jeremy Sandoval Method ist 10:19:00 [facility] BASIC METABOLIC PANEL 2021-12-18 Jeremy Sandoval Rastafarian 10:19:00 [facility] HEPATIC FUNCTION PANEL 2021-12-18 Jeremy Sandoval Rastafarian 10:19:00 [facility] PHOSPHORUS LEVEL 2021-12-18 Jeremy Sandoval Rastafarian 10:19:00 [facility] MAGNESIUM LEVEL 2021-12-18 Jeremy Sandoval Rastafarian 10:19:00 [facility] ESTIMATED GFR 2021-12-18 Jeremy Sandoval Rastafarian 10:19:00 [facility] SMEAR REVIEW 2021-12-18 Jeremy Sandoval Rastafarian 10:19:00 [facility] CBC WITH PLATELET AND DIFFERENTIAL 2021-12-17 Leah Sandoval Rastafarian 11:45:00 [facility] PROTHROMBIN TIME WITH INR 2021-12-17 Dinakar, Jeremy Method ist 11:45:00 [facility] BASIC METABOLIC PANEL 2021-12-17 Dinakar, Jeremy Rastafarian 11:45:00 [facility] HEPATIC FUNCTION PANEL 2021-12-17 Dinakar, Jeremy Rastafarian 11:45:00 [facility] PHOSPHORUS LEVEL 2021-12-17 Dinakar, Jeremy Rastafarian 11:45:00 [facility] MAGNESIUM LEVEL 2021-12-17 Dinakar, Jeremy Rastafarian 11:45:00 [facility] ESTIMATED GFR 2021-12-17 Michelakar, Jeremy Rastafarian 11:45:00 [facility] SMEAR REVIEW 2021-12-17 Jeremy Sandoval 11:45:00 [facility] NM GI BLEEDING STUDY 2021-12-16 Elias Guzman 20:06:11 [facility] MRI CHOLANGIOGRAM WO CONTRAST 2021-12-16 Elias Guzman thodist 13:57:00 Hospital MRI ABDOMEN W WO CONTRAST 2021-12-16 Elias Guzman ist 13:56:00 Hospital CBC WITH PLATELET AND DIFFERENTIAL 2021-12-16 Leah Sandoval Rastafarian 11:26:00 [facility] PROTHROMBIN TIME WITH INR 2021-12-16 Dinakar, Jeremy Method ist 11:26:00 [facility] BASIC METABOLIC PANEL 2021-12-16 Dinakar, Jeremy Rastafarian 11:26:00 [facility] HEPATIC FUNCTION PANEL 2021-12-16 DinarJeremy Rastafarian 11:26:00 [facility] PHOSPHORUS LEVEL 2021-12-16 Dinakar, Jeremy Rastafarian 11:26:00 [facility] MAGNESIUM LEVEL 2021-12-16 Dinakar, Jeremy Rastafarian 11:26:00 [facility] ESTIMATED GFR 2021-12-16 DinarJeremy 11:26:00 [facility] SMEAR REVIEW 2021-12-16 Jeremy Sandoval Rastafarian 11:26:00 [facility] BASIC METABOLIC PANEL 2021-12-15 Bebeto Ward 12:30:00 Hospital ESTIMATED GFR 2021-12-15 Bebeto Ward Rastafarian 12:30:00 Hospital HEPATIC FUNCTION PANEL 2021-12-15 Bebeto Ward Methodis t 12:30:00 Hospital MAGNESIUM LEVEL 2021-12-15 Bebeto Ward Rastafarian 12:30:00 Hospital PHOSPHORUS LEVEL 2021-12-15 Bebeto Ward Rastafarian 12:30:00 Hospital CBC HEMOGRAM 2021-12-15 Bebeto Ward Rastafarian 12:30:00 Hospital PROTHROMBIN TIME WITH INR 2021-12-15 Bebeto Ward Metho dist 12:30:00 Hospital C-REACTIVE PROTEIN 2021-12-15 Bebeto Ward Rastafarian 12:30:00 Hospital SMEAR REVIEW 2021-12-15 Bebeto Ward 12:30:00 [facility] CBC WITH PLATELET AND DIFFERENTIAL 2021-12-15 Dinakar, Leah stuart Rastafarian 11:14:00 [facility] CBC WITH PLATELET AND DIFFERENTIAL 2021-12-15 Dinakar, Leah stuart Rastafarian 11:14:00 [facility] PROTHROMBIN TIME WITH INR 2021-12-15 DinarJeremy Method ist 11:14:00 [facility] BASIC METABOLIC PANEL 2021-12-15 MichelakarJeremy Rastafarian 11:14:00 [facility] HEPATIC FUNCTION PANEL 2021-12-15 DinakarJeremy Rastafarian 11:14:00 [facility] PHOSPHORUS LEVEL 2021-12-15 Dinakar, Jeremy Rastafarian 11:14:00 [facility] MAGNESIUM LEVEL 2021-12-15 MichelakarJeremy Rastafarian 11:14:00 [facility] C-REACTIVE PROTEIN 2021-12-15 Bebeto Ward Rastafarian 11:14:00 Hospital ESTIMATED GFR 2021-12-15 Dinakar, Jeremy Rastafarian 11:14:00 [facility] CBC WITH PLATELET AND DIFFERENTIAL 2021-12-14 Dinakar, Leah stuart Rastafarian 10:39:00 [facility] PROTHROMBIN TIME WITH INR 2021-12-14 Dinakar, Jeremy Method ist 10:39:00 [facility] BASIC METABOLIC PANEL 2021-12-14 Dinakar, Jeremy Rastafarian 10:39:00 [facility] HEPATIC FUNCTION PANEL 2021-12-14 Jeremy Sandoval Rastafarian 10:39:00 [facility] PHOSPHORUS LEVEL 2021-12-14 Dinakar, Jeremy Rastafarian 10:39:00 [facility] MAGNESIUM LEVEL 2021-12-14 Dinhomar, Jeremy Rastafarian 10:39:00 [facility] C-REACTIVE PROTEIN 2021-12-14 Ward, Bebeto Rastafarian 10:39:00 Hospital FERRITIN LEVEL 2021-12-14 Ward, Bebeto Rastafarian 10:39:00 Hospital FOLATE LEVEL 2021-12-14 Ward, Bebeto Rastafarian 10:39:00 Hospital HAPTOGLOBIN 2021-12-14 Ward, Bebeto Rastafarian 10:39:00 Hospital VITAMIN B12 LEVEL 2021-12-14 Ward, Bebeto Rastafarian 10:39:00 Hospital TOTAL IRON BINDING CAPACITY 2021-12-14 Ward, Bebeto Met hodnohelia 10:39:00 Hospital RETICULOCYTE COUNT 2021-12-14 WardBebeto Rastafarian 10:39:00 Hospital LDH 2021-12-14 Ward, Bebeto Rastafarian 10:39:00 Hospital ESTIMATED GFR 2021-12-14 DinarJeremy Rastafarian 10:39:00 [facility] VENIPUNC NEED PHYS SKILL,DX OR RX 2021-12-13 Latanya Ring Rastafarian 21:45:17 Hospital CBC WITH PLATELET AND DIFFERENTIAL 2021-12-13 Leah Sandoval Rastafarian 07:40:00 [facility] PROTHROMBIN TIME WITH INR 2021-12-13 Jeremy Sandoval ist 07:40:00 [facility] BASIC METABOLIC PANEL 2021-12-13 Jeremy Sandoval Rastafarian 07:40:00 [facility] HEPATIC FUNCTION PANEL 2021-12-13 Jeremy Sandoval Rastafarian 07:40:00 [facility] PHOSPHORUS LEVEL 2021-12-13 DinarJeremy Rastafarian 07:40:00 [facility] MAGNESIUM LEVEL 2021-12-13 DinarJeremy Rastafarian 07:40:00 [facility] HEMOGLOBIN A1C 2021-12-13 Jeremy Sandoval Rastafarian 07:40:00 [facility] C-REACTIVE PROTEIN 2021-12-13 Ward, Bebeto Rastafarian 07:40:00 Hospital SEDIMENTATION RATE 2021-12-13 Bebeto Ward [...] AEROBIC & ANAEROBIC 2021-12-12 Leah Sandoval 11:42:00 [place] [id number] ANTI-SPIKE IGG ANTIBODY 2021-12-12 Leah Sandoval TITER 11:40:00 [facility] TROPONIN T 2021-12-12 Stevo Hoskins 11:40:00 [facility] CBC WITH PLATELET AND DIFFERENTIAL 2021-12-12 Leah Sandoval 11:40:00 [place] [id number] SEROLOGY PATIENT 2021-12-12 Jeremy Sandoval SURVEILLANCE 11:40:00 [facility] SMEAR REVIEW 2021-12-12 Jeremy Sandoval 11:40:00 [facility] TROPONIN T 2021-12-12 Stevo Hoskins 09:10:00 [facility] LACTIC ACID LEVEL, SEPSIS - NOW 2021-12-12 Stevo Hoskins AND REPEAT 2X EVERY 3 HOURS 09:10:00 [facility] ital CT ABDOMEN PELVIS W CONTRAST 2021-12-12 Stevo Hoskins 06:58:00 [facility] ECG ED PRELIMINARY INTERPRETATION 2021-12-12 Stevo Hoskins 05:33:45 [facility] URINE CULTURE 2021-12-12 Stevo Hoskins 04:28:00 [facility] URINALYSIS SCREEN AND MICROSCOPY, 2021-12-12 Stevo Hoskins WITH REFLEX TO CULTURE 03:45:00 [facility] COVID-19 QUALITATIVE RT-PCR 2021-12-12 Rehrer, Stevo Meth odist 03:30:00 [facility] PROTHROMBIN TIME WITH INR 2021-12-12 Rehrer, Stevo Method ist 03:30:00 [facility] PARTIAL THROMBOPLASTIN TIME (PTT) 2021-12-12 Rehrer, Stevo Rastafarian 03:30:00 [facility] LIPASE LEVEL 2021-12-12 Rehrer, Stevo Rastafarian 03:30:00 [facility] TROPONIN T 2021-12-12 Rehrer, Stevo Rastafarian 03:30:00 [facility] B NATRIURETIC PEPTIDE 2021-12-12 Rehrer, Stevo Rastafarian 03:30:00 [facility] TYPE AND SCREEN 2021-12-12 Rehrer, Stevo Rastafarian 03:30:00 [facility] LACTIC ACID LEVEL, SEPSIS - NOW 2021-12-12 Tamie Silveira AND REPEAT 2X EVERY 3 HOURS 03:30:00 Hosp ital ECG 12-LEAD 2021-12-12 Rehrer, Stevo Rastafarian 03:08:12 [facility] CBC WITH PLATELET AND DIFFERENTIAL 2021-12-11 [...] PLATELET AND DIFFERENTIAL 2021-12-03 Leah Sandoval 11:14:00 [facility] PROTHROMBIN TIME WITH INR 2021-12-03 Jeremy Sandoval Method ist 11:14:00 [facility] BASIC METABOLIC PANEL 2021-12-03 Jeremy Sandovalist 11:14:00 [facility] HEPATIC FUNCTION PANEL 2021-12-03 eJremy Sandoval Rastafarian 11:14:00 [facility] PHOSPHORUS LEVEL 2021-12-03 Dinakar, Jeremy Rastafarian 11:14:00 [facility] MAGNESIUM LEVEL 2021-12-03 Dinakar, Jeremy Rastafarian 11:14:00 [facility] ESTIMATED GFR 2021-12-03 Dinakar, Jeremy Rastafarian 11:14:00 [facility] SMEAR REVIEW 2021-12-03 Dinakar, Jeremy Rastafarian 11:14:00 [facility] US DUPLEX VENOUS UPPER EXTREMITY 2021-12-02 Nakia Cruzist LEFT 18:10:00 Hospital CBC WITH PLATELET AND DIFFERENTIAL 2021-12-02 Dinakar, Leah stuart Rastafarian 09:59:00 [facility] PROTHROMBIN TIME WITH INR 2021-12-02 Dinakar, Jeremy Method ist 09:59:00 [facility] BASIC METABOLIC PANEL 2021-12-02 Dinakar, Jeremy Rastafarian 09:59:00 [facility] HEPATIC FUNCTION PANEL 2021-12-02 Dinakar, Jeremy Rastafarian 09:59:00 [facility] PHOSPHORUS LEVEL 2021-12-02 Dinakar, Jeremy Rastafarian 09:59:00 [facility] MAGNESIUM LEVEL 2021-12-02 Dinakar, Jeremy Rastafarian 09:59:00 [facility] ESTIMATED GFR 2021-12-02 Dinakar, Jeremy Rastafarian 09:59:00 [facility] CBC WITH PLATELET AND DIFFERENTIAL 2021-12-01 Dinakar, Leah stuart Rastafarian 10:22:00 [facility] PROTHROMBIN TIME WITH INR 2021-12-01 Dinakar, Jeremy Method ist 10:22:00 [facility] BASIC METABOLIC PANEL 2021-12-01 Dinakar, Jeremy Rastafarian 10:22:00 [facility] HEPATIC FUNCTION PANEL 2021-12-01 Dinakar, Jeremy Rastafarian 10:22:00 [facility] PHOSPHORUS LEVEL 2021-12-01 Dinakar, Jeremy Rastafarian 10:22:00 [facility] MAGNESIUM LEVEL 2021-12-01 Dinakar, Jeremy Rastafarian 10:22:00 [facility] ESTIMATED GFR 2021-12-01 Dinakar, Jeremy Rastafarian 10:22:00 [facility] SMEAR REVIEW 2021-12-01 Dinakar, Jeremy Rastafarian 10:22:00 [facility] ESOPHAGOGASTRODUODENOSCOPY (EGD) 2021-11-30 Elias Guzman Rastafarian 19:49:00 Hospital CBC WITH PLATELET AND DIFFERENTIAL 2021-11-30 Dinakar, Leah stuart Rastafarian 10:53:00 [facility] PROTHROMBIN TIME WITH INR 2021-11-30 Dinakar, Jeremy Method ist 10:53:00 [facility] BASIC METABOLIC PANEL 2021-11-30 Dinakar, Jeremy Rastafarian 10:53:00 [facility] HEPATIC FUNCTION PANEL 2021-11-30 Dinakar, Jeremy Rastafarian 10:53:00 [facility] PHOSPHORUS LEVEL 2021-11-30 Dinakar, Jeremy Rastafarian 10:53:00 [facility] MAGNESIUM LEVEL 2021-11-30 Dinakar, Jeremy Rastafarian 10:53:00 [facility] ESTIMATED GFR 2021-11-30 Dinakar, Jeremy Rastafarian 10:53:00 [facility] SMEAR REVIEW 2021-11-30 Dinakar, Jeremy Rastafarian 10:53:00 [facility] CBC WITH PLATELET AND DIFFERENTIAL 2021-11-29 Dinakar, Leah stuart Rastafarian 10:50:00 [facility] PROTHROMBIN TIME WITH INR 2021-11-29 Dinakar, Jeremy Method ist 10:50:00 [facility] BASIC METABOLIC PANEL 2021-11-29 Dinakar, Jeremy Rastafarian 10:50:00 [facility] HEPATIC FUNCTION PANEL 2021-11-29 Dinakar, Jeremy Rastafarian 10:50:00 [facility] PHOSPHORUS LEVEL 2021-11-29 Dinakar, Jeremy Rastafarian 10:50:00 [facility] MAGNESIUM LEVEL 2021-11-29 Dinakar, Jeremy Rastafarian 10:50:00 [facility] ESTIMATED GFR 2021-11-29 Dinakar, Jeremy Rastafarian 10:50:00 [facility] SMEAR REVIEW 2021-11-29 Dinakar, Jeremy Rastafarian 10:50:00 [facility] CBC WITH PLATELET AND DIFFERENTIAL 2021-11-28 Dinakar, Leah stuart Rastafarian 09:28:00 [facility] CBC WITH PLATELET AND DIFFERENTIAL 2021-11-28 Dinakar, Leah stuart Rastafarian 09:28:00 [facility] PROTHROMBIN TIME WITH INR 2021-11-28 Dinakar, Jeremy Method ist 09:28:00 [facility] BASIC METABOLIC PANEL 2021-11-28 Dinakar, Jeremy Rastafarian 09:28:00 [facility] HEPATIC FUNCTION PANEL 2021-11-28 Dinakar, Jeremy Rastafarian 09:28:00 [facility] PHOSPHORUS LEVEL 2021-11-28 Dinakar, Jeremy Rastafarian 09:28:00 [facility] MAGNESIUM LEVEL 2021-11-28 Dinakar, Jeremy Rastafarian 09:28:00 [facility] ESTIMATED GFR 2021-11-28 Dinakar, Jeremy Rastafarian 09:28:00 [facility] OCCULT BLOOD, STOOL 2021-11-27 [facility] [place] 23:26:00 Hospital XR ABDOMEN 1 VW PORTABLE 2021-11-27 Myra Garcia 20:25:00 [facility] CBC WITH PLATELET AND DIFFERENTIAL 2021-11-27 Dinar, Leah Kyle 09:07:00 [facility] PROTHROMBIN TIME WITH INR 2021-11-27 Michelakar, Jeremy Method ist 09:07:00 [facility] BASIC METABOLIC PANEL 2021-11-27 Dinakar, Jeremy Rastafarian 09:07:00 [facility] HEPATIC FUNCTION PANEL 2021-11-27 Michelakar, Jeremy Kyle 09:07:00 [facility] PHOSPHORUS LEVEL 2021-11-27 Dinakar, Jeremy Rastafarian 09:07:00 [facility] MAGNESIUM LEVEL 2021-11-27 Dinar, Jeremy Rastafarian 09:07:00 [facility] HEMOGLOBIN A1C 2021-11-27 Michelakar, Jeremy Rastafarian 09:07:00 [facility] ESTIMATED GFR 2021-11-27 Michelakar, Jeremy Rastafarian 09:07:00 [facility] SMEAR REVIEW 2021-11-27 Jeremy Sandoval 09:07:00 [facility] BLOOD CULTURE, AEROBIC & ANAEROBIC 2021-11-27 Ara, Leah Kyle 04:03:00 [facility]TIBODY 2021-11-27 Leah Sandoval TITER 04:03:00 [facility] 2021-11-27 Jeremy Sandoval odist SURVEILLANCE 04:03:00 [facility] CTA ABD/PEL FOR BLEEDING 2021-11-27 Jefferson Sketlono dist 01:38:34 Hospital HEMOGLOBIN & HEMATOCRIT 2021-11-27 [facility] Method ist 01:34:00 Hospital SMEAR REVIEW 2021-11-27 [facility] Sk[facility] Rastafarian 01:34:00 Hospital RESPIRATORY PATHOGEN PANEL WITH 2021-11-27 [facility] [place] COVID-19 RT-PCR 00:58:00 Hospital TYPE AND SCREEN 2021-11-27 [facility] Rastafarian 00:30:00 Hospital PROTHROMBIN TIME WITH INR 2021-11-27 [facility] odist 00:30:00 Hospital AMMONIA LEVEL 2021-11-27 [facility] Rastafarian 00:30:00 Hospital ECG 12-LEAD 2021-11-27 [facility] Sk[facility] Rastafarian 00:29:32 Hospital ECG ED PRELIMINARY INTERPRETATION 2021-11-27 [facility] Skelton Rastafarian 00:04:12 [facility] CBC WITH PLATELET AND DIFFERENTIAL 2021-11-26 Jefferson Skelton Rastafarian 21:32:00 [facility] COMPREHENSIVE METABOLIC PANEL 2021-11-26 Jefferson Skeltonist 21:32:00 Hospital LIPASE LEVEL 2021-11-26 [facility] Skelton Rastafarian 21:32:00 Hospital HCG QUALITATIVE, SERUM SCREEN 2021-11-26 [facility] Skelton Rastafarian 21:32:00 [facility] ESTIMATED GFR 2021-11-26 Pasquale Cabrales Rastafarian 21:32:00 [facility] SMEAR REVIEW 2021-11-26 Pasquale Cabrales Rastafarian 21:32:00 [facility] CBC WITH PLATELET AND DIFFERENTIAL 2021-10-26 Nakia Cruz Rastafarian 11:26:00 Hospital PROTHROMBIN TIME WITH INR 2021-10-26 Nakia Cruz Method ist 11:26:00 [facility] BASIC METABOLIC PANEL 2021-10-26 Anand Arora Rastafarian 11:26:00 [facility] ESTIMATED GFR 2021-10-26 Anand Arora Rastafarian 11:26:00 [facility] SMEAR REVIEW 2021-10-26 Nakia Cruzist 11:26:00 Hospital CBC WITH PLATELET AND DIFFERENTIAL 2021-10-25 Nakia Cruzist 09:30:00 Hospital PROTHROMBIN TIME WITH INR 2021-10-25 Nakia Cruz Method ist 09:30:00 Hospital COMPREHENSIVE METABOLIC PANEL 2021-10-25 Nakia Cruz thodist 09:30:00 Hospital ESTIMATED GFR 2021-10-25 Nakia Cruzist 09:30:00 Hospital MAGNESIUM LEVEL 2021-10-25 Nakia Cruz Rastafarian 09:30:00 Hospital PHOSPHORUS LEVEL 2021-10-25 Nakia Cruz Rastafarian 09:30:00 Hospital BILIRUBIN DIRECT 2021-10-25 Nakia Cruz 09:30:00 Hospital SMEAR REVIEW 2021-10-25 Nakia Cruz 09:30:00 Hospital CBC WITH PLATELET AND DIFFERENTIAL 2021-10-24 Nakia Cruz 09:17:00 Hospital PROTHROMBIN TIME WITH INR 2021-10-24 Nakia Cruz ist 09:17:00 Hospital COMPREHENSIVE METABOLIC PANEL 2021-10-24 Nakia Cruz thodist 09:17:00 Hospital PHOSPHORUS LEVEL 2021-10-24 Nakia Cruzist 09:17:00 Hospital MAGNESIUM LEVEL 2021-10-24 Nakia Cruz Rastafarian 09:17:00 Hospital ESTIMATED GFR 2021-10-24 Nakia Cruz 09:17:00 Hospital SMEAR REVIEW 2021-10-24 Nakia Cruz 09:17:00 Hospital ESOPHAGOGASTRODUODENOSCOPY (EGD) 2021-10-23 Elias Guzman 17:25:00 Hospital CBC WITH PLATELET AND DIFFERENTIAL 2021-10-23 Nakia Cruzist 11:38:00 Hospital PROTHROMBIN TIME WITH INR 2021-10-23 Nakia Cruz Method ist 11:38:00 Hospital COMPREHENSIVE METABOLIC PANEL 2021-10-23 Nakia Cruz thodist 11:38:00 Hospital PHOSPHORUS LEVEL 2021-10-23 Nakia Cruz Rastafarian 11:38:00 Hospital MAGNESIUM LEVEL 2021-10-23 Nakia Cruz Rastafarian 11:38:00 Hospital ESTIMATED GFR 2021-10-23 Nakia Cruz 11:38:00 Hospital SMEAR REVIEW 2021-10-23 Nakia Cruzist 11:38:00 Hospital TTE COMPLETE, W CONTRAST, W 2021-10-22 Myra Garcia DOPPLER ([id number]) 14:21:00 [facility] CBC WITH PLATELET AND DIFFERENTIAL 2021-10-22 Nakia Cruzist 10:31:00 Hospital PROTHROMBIN TIME WITH INR 2021-10-22 Nakia Cruz ist 10:31:00 [facility] COMPREHENSIVE METABOLIC PANEL 2021-10-22 Nakia Cruz thodist 10:31:00 Hospital PHOSPHORUS LEVEL 2021-10-22 Nakia Cruz 10:31:00 Hospital MAGNESIUM LEVEL 2021-10-22 Nakia Cruz 10:31:00 [facility] THYROID STIMULATING HORMONE 2021-10-22 Nakia Cruz odist 10:31:00 Hospital T4 2021-10-22 Nakia Cruz 10:31:00 Hospital VITAMIN D 25 HYDROXY LEVEL 2021-10-22 Nakia Cruzo dist 10:31:00 Hospital ALPHA FETOPROTEIN 2021-10-22 Myra Garciaist 10:31:00 [facility] ESTIMATED GFR 2021-10-22 Nakia Cruz 10:31:00 Hospital SMEAR REVIEW 2021-10-22 Nakia Cruz 10:31:00 [facility] COVID-19 QUALITATIVE RT-PCR 2021-10-22 Nakia Cruz odist 00:29:00 Hospital URINE CULTURE 2021-10-21 Nakia Cruzist 22:46:00 [facility] URINALYSIS SCREEN AND MICROSCOPY, 2021-10-21 Nakia Cruz WITH REFLEX TO CULTURE 22:46:00 Hospital XR ABDOMEN 1 VW PORTABLE 2021-10-21 Myra Garcia odist 22:35:[address] [facility] CT ABDOMEN PELVIS WO CONTRAST 2021-10-21 Nakia Cruz thodist 20:20:30 [facility] [id number] ANTI-SPIKE IGG ANTIBODY 2021-10-21 [...] KNEE 3 VW RIGHT 2021-09-29 Sukhdev Soto [place] of 04:06:00 [facility] NOTICE OF PRIVACY PRACTICES 2021-09-29 [facility] 02:46:43 [place] [facility] CONSENT/REFUSAL FOR DIAGNOSIS AND 2021-09-29 Doctor Buck olmedo [facility] 02:46:16 [place] [facility] XR KNEE 3 VW LEFT 2021-04-02 [facility] o f 20:10:39 F [facility] CONSENT/REFUSAL FOR DIAGNOSIS AND 2021-04-02 Doctor Buck olmedo [facility] 17:59:31 [place] [facility] ASSIGNMENT OF BENEFITS 2021-03-10 Doctor Kathleen [facility] of 20:29:46 [place] [facility] HC COMPLETE BLD COUNT W/AUTO DIFF 2021-02-20 Anabella Suresh 10:53:00 [facility] BASIC METABOLIC PANEL 2021-02-20 Anabella Suresh 10:53:00 [facility] HEPATIC FUNCTION PANEL 2021-02-20 Anabella Suresh 10:53:00 [facility] MAGNESIUM LEVEL 2021-02-20 Anabella Suresh 10:53:00 [facility] PHOSPHORUS LEVEL 2021-02-20 Anabella Suresh 10:53:00 [facility] PROTHROMBIN TIME WITH INR 2021-02-20 Rosemary Suresh ist 10:53:00 [facility] ESTIMATED GFR 2021-02-20 Anabella Suresh 10:53:00 [facility] SMEAR REVIEW 2021-02-20 Anabella Suresh 10:53:00 [facility] MRI CHOLANGIOGRAM WO CONTRAST 2021-02-20 DinaJose pottsh Hi thodist 00:15:00 [facility] VENIPUNC NEED PHYS SKILL,DX OR RX 2021-02-19 Latanya Ring lda Rastafarian 16:10:21 Hospital HC COMPLETE BLD COUNT W/AUTO DIFF 2021-02-19 Anabella Suresh 11:00:00 [facility] BASIC METABOLIC PANEL 2021-02-19 Anabella Suresh 11:00:00 [facility] HEPATIC FUNCTION PANEL 2021-02-19 Anabella Suresh 11:00:00 [facility] MAGNESIUM LEVEL 2021-02-19 Anabella Suresh 11:00:00 [facility] PHOSPHORUS LEVEL 2021-02-19 Anabella Suresh 11:00:00 [facility] PROTHROMBIN TIME WITH INR 2021-02-19 Rosemary Suresh ist 11:00:00 [facility] ESTIMATED GFR 2021-02-19 Anabella Suresh 11:00:00 [facility] SMEAR REVIEW 2021-02-19 Anabella Suresh 11:00:[address] [facility] [address] ABDOMEN PELVIS WO CONTRAST 2021-02-19 Me Demetrice thodist 03:25:00 [facility] URINE CULTURE 2021-02-19 Anabella Suresh 02:27:00 [facility] URINALYSIS SCREEN AND MICROSCOPY, 2021-02-19 Anabella Suresh WITH REFLEX TO CULTURE 02:27:00 [facility] [facility] BLOOD CULTURE, AEROBIC & ANAEROBIC 2021-02-18 Anabella Suresh 23:25:00 [facility] TYPE AND SCREEN 2021-02-18 Dre Mayer 23:25:00 Hospital COVID-19 ANTI-SPIKE IGG ANTIBODY 2021-02-18 Anabella Suresh TITER 22:57:00 [facility] COVID-19 SEROLOGY PATIENT 2021-02-18 Rosemary Suresh ist SURVEILLANCE 22:57:00 [facility] HC COMPLETE BLD COUNT W/AUTO DIFF 2021-02-18 Anabella Suresh 22:57:00 [facility] PROTHROMBIN TIME WITH INR 2021-02-18 Rosemary Suresht 22:57:00 [facility] COMPREHENSIVE METABOLIC PANEL 2021-02-18 Me Demetrice thodist 22:57:00 [facility] LACTIC ACID LEVEL 2021-02-18 Anabella Suresh 22:57:00 [facility] MAGNESIUM LEVEL 2021-02-18 Anabella Suresh 22:57:00 [facility] PHOSPHORUS LEVEL 2021-02-18 Anabella Suresh 22:57:00 [facility] LIPASE LEVEL 2021-02-18 Anabella Suresh 22:57:00 [facility] ESTIMATED GFR 2021-02-18 Anabella Suresh 22:57:00 [facility] SMEAR REVIEW 2021-02-18 Anabella Suresh 22:57:00 [facility] PHOSPHORUS 2020-10-03 Brenda Teixeira of 08:52:00 [facility] MAGNESIUM 2020-10-03 Brenda Teixeira [place] of 08:52:00 [facility] COMP. METABOLIC PANEL ([id number]) 2020-10-03 Brenda Teixeira [facility] of 08:52:00 [facility] CBC WITH DIFF 2020-10-03 Brenda Teixeira of 08:52:00 [facility] COMP. METABOLIC PANEL ([id number]) 2020-10-02 Brenda Teixeira [facility] of 08:39:00 [facility] CBC WITH DIFF 2020-10-02 Brenda Teixeira of 08:39:00 [facility] US DUPLEX VENOUS ARM LEFT - BY 2020-10-01 Brenda Teixeira [facility] of VASCULAR LAB 16:22:58 [facility] COMP. METABOLIC PANEL ([id number]) 2020-10-01 Tomasa Rucker [facility] of 07:45:00 [facility] CBC WITH DIFF 2020-10-01 Tomasa Rucker [facility] of 07:45:00 [facility] TROPONIN I 2020-09-30 Levy [facility] of 10:56:00 [facility] COMP. METABOLIC PANEL ([id number]) 2020-09-30 Shaina Pinto [facility] of 10:56:00 [facility] CBC WITH DIFF 2020-09-30 Alisha [facility] of 10:56:00 [facility] N-TERMINAL PRO-BNP 2020-09-30 Alisha [facility] of 08:05:00 [facility] OCCULT (GUAIAC) BLOOD 2020-09-30 Alisha [facility] of 02:10:00 [facility] FECAL LEUKOCYTES 2020-09-30 Alisha, [facility] of 02:10:00 [facility] CLOSTRIDIUM DIFFICILE TOXIN 2020-09-30 Alisha [facility] ersity of 02:10:00 [facility] FECAL PATHOGENS BY PCR 2020-09-30 Alisha [facility] y of 02:10:00 [facility] POCT GLUCOSE (AUTOMATED) 2020-09-30 Rene Evans [facility] sity of 00:35:00 [facility] BASIC METABOLIC PANEL (NA, K, CL, 2020-09-29 Shaina Pinto [place] of CO2, GLUCOSE, BUN, CREATININE, CA) 21:11:00 [facility] HEMOGLOBIN 2020-09-29 Tomasa Rucker [place] of 21:11:00 [facility] TRANSTHORACIC ECHO (TTE) COMPLETE 2020-09-29 Marco Levy [place] of 16:03:00 [facility] HB ECG ROUTINE & RHYTHM STRIP 2020-09-29 Shaina Pinto [facility] of 11:18:58 [facility] OSMOLALITY URINE 2020-09-29 Alisha [facility] of 08:56:00 [facility] URINE CULTURE 2020-09-29 Alisha [facility] of 08:56:00 [facility] SODIUM, URINE RANDOM 2020-09-29 Alisha [facility] of 08:56:00 [facility] PROTEIN CREAT RATIO URINE RANDOM 2020-09-29 Alisha [facility] of 08:56:00 [facility] BLOOD CULTURE SCREEN 2020-09-29 Shaina Pinto [place] of 08:32:00 [facility] LACTIC ACID WHOLE BLOOD 2020-09-29 Shaina Pinto [facility] of 08:32:00 [facility] VITAMIN B12, LEVEL 2020-09-29 [facility] 08:31[facility]00 [facility] C-REACTIVE PROTEIN 2020-09-29 Alisha [facility] of 08:31:00 [facility] IRON PANEL 2020-09-29 Alisha [facility] of 08:31:00 [facility] SEDIMENTATION RATE 2020-09-29 Alisha [facility] of 08:31:00 [facility] DIFF CONSULT INTERPRETATION 2020-09-29 Shaina Pinto [facility] ersity of 08:31:00 [facility] CBC WITH DIFF 2020-09-29 Alisha [facility] of 08:31:00 [facility] PROTHROMBIN TIME / INR 2020-09-29 Alisha [facility] y of 08:31:00 [facility] N-TERMINAL PRO-BNP 2020-09-29 [facility] 08:31[facility]00 [facility] VITAMIN D, 25-OH 2020-09-29 [facility] 08:31:00 [facility] PROCALCITONIN 2020-09-29 [facility] 08:31:00 [facility] COVID-19 (ID NOW RAPID TESTING) 2020-09-29 Rene Evans [place] of 05:10:00 [facility] LAB ONLY COVID INTERPRETATION 2020-09-29 Rene Evans [facility] of 05:10:[address] [facility] [address] ABDOMEN PELVIS W CONTRAST 2020-09-29 Rene Evans [facility] iversity of 04:56:31 [facility] URINALYSIS 2020-09-29 Rene Evans of 04:19:00 [facility] PHOSPHORUS 2020-09-29 [facility] 03:54:00 [facility] CREATINE KINASE 2020-09-29 Shaina Pinto [place] of 03:54:00 [facility] URIC ACID 2020-09-29 Alisha, Shaina [place] of 03:54:00 [facility] LIPASE 2020-09-29 Rene Evans [place] of 03:54:00 [facility] MAGNESIUM 2020-09-29 Shaina Pinto [place] of 03:54:00 [facility] FERRITIN SERUM 2020-09-29 Shaina Pinto [place] of 03:54:00 [facility] TROPONIN I 2020-09-29 [facility] [place] [facility] 03:54:00 [facility] THYROID STIMULATING HORMONE 2020-09-29 Shaina Pinto [facility] ersity of 03:54:00 [facility] COMP. METABOLIC PANEL ([id number]) 2020-09-29 Rene Evans [facility] of 03:54:00 [facility] LIPID PANEL ([id number])(TOTAL 2020-09-29 Shaina Pinto [facility] sity of CHOLESTEROL, TRIGLYCERIDES, HDL) 03:54:00 [facility] CBC WITH DIFF 2020-09-29 Rene Evans [place] of 03:54:00 [facility] GLYCOSYLATED HEMOGLOBIN (A1C) 2020-09-29 Shaina Pinto iversity of 03:54:00 [facility] N-TERMINAL PRO-BNP 2020-09-29 Shaina Pinto [place] of 03:54:00 [facility] CONSENT/REFUSAL FOR DIAGNOSIS AND 2020-09-29 [facility] 03:18:51 [place] [facility] NOTICE OF PRIVACY PRACTICES 2020-09-29 Doctor Unassigned, U niversity of 03:18:30 [place] [facility] CT ABDOMEN PELVIS W CONTRAST 2019-08-11 Corby Ca Uni versity of 14:50:46 [facility] COMP. METABOLIC PANEL ([id number]) 2019-08-11 Shaina Pinto [facility] of 08:00:00 [facility] CBC WITH DIFFERENTIAL 2019-08-11 Shaina Pinto of 08:00:00 [facility] CBC WITH DIFFERENTIAL 2019-08-11 Shaina Pinto [place] of 08:00:00 [facility] XR SMALL BOWEL SERIES 2019-08-10 Valente Piña of 21:18:47 [facility] XR ABDOMEN 1 VW 2019-08-10 Alisha, Shaina [place] of 11:52:39 [facility] PHOSPHORUS 2019-08-10 Shaina Pinto [place] of 11:11:00 [facility] CREATINE KINASE 2019-08-10 Shaina Pinto [place] of 11:11:00 [facility] AMYLASE 2019-08-10 Alisha, Shaina [place] of 11:11:00 [facility] LIPASE 2019-08-10 Shaina Pinto [place] of 11:11:00 [facility] MAGNESIUM 2019-08-10 Shaina Pinto [place] of 11:11:00 [facility] TEST, SERUM 2019-08-10 Shaina Pinto [place] of 11:11:00 [facility] THYROID STIMULATING HORMONE 2019-08-10 Shaina Pinto Univ ersity of 11:11:00 [facility] COMP. METABOLIC PANEL ([id number]) 2019-08-10 Shaina Pinto Un iversity of 11:11:00 [facility] LIPID PANEL ([id number])(TOTAL 2019-08-10 [facility] CHOLESTEROL, TRIGLYCERIDES, HDL) 11:11:00 [facility] SEDIMENTATION RATE 2019-08-10 Shaina Pinto [place] of 11:11:00 [facility] CBC WITH DIFFERENTIAL 2019-08-10 Shaina iPnto [place] of 11:11:00 [facility] GLYCOSYLATED HEMOGLOBIN (A1C) 2019-08-10 Shaina Pinto Un iversity of 11:11:00 [facility] PROTHROMBIN TIME / INR 2019-08-10 [facility] 11:11:00 [facility] CORONAVIRUS COVID-19 TESTING 2019-08-10 Shaina Pinto Uni versity of 09:04:00 [facility] Plan of Care Planned Activity Planned Date Details Comments Source Future Scheduled 2022-10-06 Screening for [facility] Test 12:39:24 malignant neoplasm of colon (procedure) [code = 474931776] Future Scheduled 2022-10-06 Screening for [facility] Test 12:39:24 malignant neoplasm of colon (procedure) [code = 309518010] Future Scheduled 2022-10-06 [facility]ening for [facility] Test 12:39:24 malignant neoplasm of cervix (procedure) [code = 545048573] Future Scheduled 2022-10-06 BREAST CANCER [facility] Test 12:39:24 SCREENING [code = BREAST CANCER SCREENING] Future Scheduled 2022-10-06 Screening for [facility] Test 12:39:24 malignant neoplasm of colon (procedure) [code = 769895140] Future Scheduled 2022-10-06 SHINGLES VACCINES (1 [facility] Test 12:39:24 of 2) [code = SHINGLES VACCINES (1 of 2)] Future Scheduled 2022-10-06 COVID-19 VACCINE (3 - [facility] Test 12:39:24 Moderna series) [code = COVID-19 VACCINE (3 - Moderna series)] Future Scheduled 2022-10-06 HEPATITIS B VACCINES [facility] Test 12:39:24 (1 of 3 - Risk 3-dose series) [code = HEPATITIS B VACCINES (1 of 3 - Risk 3-dose series)] Future Scheduled 2022-10-06 Pneumococcal Vaccine: [facility] Test 12:39:24 Pediatrics (0 to 5 Years) and At-Risk Patients (6 to 64 Years) (2 - PCV) [code = Pneumococcal Vaccine: Pediatrics (0 to 5 Years) and At-Risk Patients (6 to 64 Years) (2 - PCV)] Future Scheduled 2022-10-06 INFLUENZA VACCINE Method [facility] Test 12:39:24 [code = INFLUENZA VACCINE] Future Scheduled 2022-10-06 Screening for [facility] Test 12:39:24 malignant neoplasm of colon (procedure) [code = [id number]] Future Scheduled 2022-10-06 Screening for [facility] Test 12:39:24 malignant neoplasm of colon (procedure) [code = 068810100] Future Scheduled 2022-07-18 Screening for [facility] Test 04:05:29 malignant neoplasm of cervix (procedure) [code = 237914134] Future Scheduled 2022-07-18 BREAST CANCER [facility] Test 04:05:29 SCREENING [code = BREAST CANCER SCREENING] Future Scheduled 2022-07-18 COLONOSCOPY SCREENING [facility] Test 04:05:29 [code = COLONOSCOPY SCREENING] Future Scheduled 2022-07-18 SHINGLES VACCINES (1 Met [facility] Test 04:05:29 of 2) [code = SHINGLES VACCINES (1 of 2)] Future Scheduled 2022-07-18 COVID-19 VACCINE (3 - [facility] Test 04:05:29 Booster for Moderna series) [code = COVID-19 VACCINE (3 - Booster for Moderna series)] Future Scheduled 2022-07-18 HEPATITIS B VACCINES [facility] Test 04:05:29 (1 of 3 - Risk 3-dose series) [code = HEPATITIS B VACCINES (1 of 3 - Risk 3-dose series)] Future Scheduled 2022-07-18 Pneumococcal Vaccine: [facility] Test 04:05:29 Pediatrics (0 to 5 Years) and At-Risk Patients (6 to 64 Years) (2 - PCV) [code = Pneumococcal Vaccine: Pediatrics (0 to 5 Years) and At-Risk Patients (6 to 64 Years) (2 - PCV)] Future Scheduled 2022-07-18 INFLUENZA VACCINE Method [facility] Test 04:05:29 [code = INFLUENZA VACCINE] Future Scheduled 2022-04-30 Hepatitis C screening [facility] Test 10:39:21 (procedure) [code = 521120211] Future Scheduled 2022-04-30 Screening for [facility] Test 10:39:21 malignant neoplasm of cervix (procedure) [code = 466492610] Future Scheduled 2022-04-30 BREAST CANCER [facility] Test 10:39:21 SCREENING [code = BREAST CANCER SCREENING] Future Scheduled 2022-04-30 COLONOSCOPY SCREENING [facility] Test 10:39:21 [code = COLONOSCOPY SCREENING] Future Scheduled 2022-04-30 SHINGLES VACCINES (1 Met [facility] Test 10:39:21 of 2) [code = SHINGLES VACCINES (1 of 2)] Future Scheduled 2022-04-30 COVID-19 VACCINE (3 - [facility] Test 10:39:21 Booster for Moderna series) [code = COVID-19 VACCINE (3 - Booster for Moderna series)] Future Scheduled 2022-04-30 HEPATITIS B VACCINES [facility] Test 10:39:21 (1 of 3 - Risk 3-dose series) [code = HEPATITIS B VACCINES (1 of 3 - Risk 3-dose series)] Future Scheduled 2022-04-30 Pneumococcal Vaccine: [facility] Test 10:39:21 Pediatrics (0 to 5 Years) and At-Risk Patients (6 to 64 Years) (2 - PCV) [code = Pneumococcal Vaccine: Pediatrics (0 to 5 Years) and At-Risk Patients (6 to 64 Years) (2 - PCV)] Future Scheduled 2022-04-03 Hepatitis C screening [facility] Test 09:24:01 (procedure) [code = 103946009] Future Scheduled 2022-04-03 Screening for [facility] Test 09:24:01 malignant neoplasm of cervix (procedure) [code = 870087020] Future Scheduled 2022-04-03 BREAST CANCER [facility] Test 09:24:01 SCREENING [code = BREAST CANCER SCREENING] Future Scheduled 2022-04-03 COLONOSCOPY SCREENING [facility] Test 09:24:01 [code = COLONOSCOPY SCREENING] Future Scheduled 2022-04-03 SHINGLES VACCINES (1 Met [facility] Test 09:24:01 of 2) [code = SHINGLES VACCINES (1 of 2)] Future Scheduled 2022-04-03 COVID-19 VACCINE (3 - [facility] Test 09:24:01 Booster for Moderna series) [code = COVID-19 VACCINE (3 - Booster for Moderna series)] Future Scheduled 2022-04-03 HEPATITIS B VACCINES [facility] Test 09:24:01 (1 of 3 - Risk 3-dose series) [code = HEPATITIS B VACCINES (1 of 3 - Risk 3-dose series)] Future Scheduled 2022-04-03 Pneumococcal Vaccine: [facility] Test 09:24:01 Pediatrics (0 to 5 Years) and At-Risk Patients (6 to 64 Years) (2 - PCV) [code = Pneumococcal Vaccine: Pediatrics (0 to 5 Years) and At-Risk Patients (6 to 64 Years) (2 - PCV)] Future Scheduled 2022-03-25 Hepatitis C screening [facility] Test 03:54:02 (procedure) [code = 123771144] Future Scheduled 2022-03-25 BREAST CANCER [facility] Test 03:54:02 SCREENING [code = BREAST CANCER SCREENING] Future Scheduled 2022-03-25 COLONOSCOPY SCREENING [facility] Test 03:54:02 [code = COLONOSCOPY SCREENING] Future Scheduled 2022-03-25 SHINGLES VACCINES (1 Met [facility] Test 03:54:02 of 2) [code = SHINGLES VACCINES (1 of 2)] Future Scheduled 2022-03-25 COVID-19 VACCINE (3 - [facility] Test 03:54:02 Booster for Moderna series) [code = COVID-19 VACCINE (3 - Booster for Moderna series)] Future Scheduled 2022-03-25 HEPATITIS B VACCINES [facility] Test 03:54:02 (1 of 3 - Risk 3-dose series) [code = HEPATITIS B VACCINES (1 of 3 - Risk 3-dose series)] Future Scheduled 2022-03-25 Pneumococcal Vaccine: [facility] Test 03:54:02 Pediatrics (0 to 5 Years) and At-Risk Patients (6 to 64 Years) (2 - PCV) [code = Pneumococcal Vaccine: Pediatrics (0 to 5 Years) and At-Risk Patients (6 to 64 Years) (2 - PCV)] Future Scheduled 2022-03-15 Hepatitis C screening [facility] Test 14:24:37 (procedure) [code = 223873498] Future Scheduled 2022-03-15 Screening for [facility] Test 14:24:37 malignant neoplasm of cervix (procedure) [code = 200579829] Future Scheduled 2022-03-15 BREAST CANCER [facility] Test 14:24:37 SCREENING [code = BREAST CANCER SCREENING] Future Scheduled 2022-03-15 COLONOSCOPY SCREENING [facility] Test 14:24:37 [code = COLONOSCOPY SCREENING] Future Scheduled 2022-03-15 SHINGLES VACCINES (1 [facility] Test 14:24:37 of 2) [code = SHINGLES VACCINES (1 of 2)] Future Scheduled 2022-03-15 COVID-19 VACCINE (3 - [facility] Test 14:24:37 Booster for Moderna series) [code = COVID-19 VACCINE (3 - Booster for Moderna series)] Future Scheduled 2022-03-15 HEPATITIS B VACCINES [facility] Test 14:24:37 (1 of 3 - Risk 3-dose series) [code = HEPATITIS B VACCINES (1 of 3 - Risk 3-dose series)] Future Scheduled 2022-03-15 Pneumococcal Vaccine: [facility] Test 14:24:37 Pediatrics (0 to 5 Years) and At-Risk Patients (6 to 64 Years) (2 - PCV) [code = Pneumococcal Vaccine: Pediatrics (0 to 5 Years) and At-Risk Patients (6 to 64 Years) (2 - PCV)] Future Scheduled 2022-01-15 Pneumococcal Vaccine: [facility] Test 07:35:31 Pediatrics (0 to 5 Years) and At-Risk Patients (6 to 64 Years) (1 - PCV) [code = Pneumococcal Vaccine: Pediatrics (0 to 5 Years) and At-Risk Patients (6 to 64 Years) (1 - PCV)] Future Scheduled 2022-01-15 Hepatitis C screening [facility] Test 07:35:31 (procedure) [code = 856773704] Future Scheduled 2022-01-15 Screening for [facility] Test 07:35:31 malignant neoplasm of cervix (procedure) [code = 834435259] Future Scheduled 2022-01-15 BREAST CANCER [facility] Test 07:35:31 SCREENING [code = BREAST CANCER SCREENING] Future Scheduled 2022-01-15 COLONOSCOPY SCREENING [facility] Test 07:35:31 [code = COLONOSCOPY SCREENING] Future Scheduled 2022-01-15 SHINGLES VACCINES (1 [facility] Test 07:35:31 of 2) [code = SHINGLES VACCINES (1 of 2)] Future Scheduled 2022-01-15 COVID-19 VACCINE (3 - [facility] Test 07:35:31 Booster for Moderna series) [code = COVID-19 VACCINE (3 - Booster for Moderna series)] Future Scheduled 2022-01-15 HEPATITIS B VACCINES [facility] Test 07:35:31 (1 of 3 - Risk 3-dose series) [code = HEPATITIS B VACCINES (1 of 3 - Risk 3-dose series)] Future Scheduled 2022-01-13 Pneumococcal Vaccine: [facility] Test 14:41:05 Pediatrics (0 to 5 Years) and At-Risk Patients (6 to 64 Years) (1 - PCV) [code = Pneumococcal Vaccine: Pediatrics (0 to 5 Years) and At-Risk Patients (6 to 64 Years) (1 - PCV)] Future Scheduled 2022-01-13 Hepatitis C screening [facility] Test 14:41:05 (procedure) [code = 121925864] Future Scheduled 2022-01-13 Screening for [facility] Test 14:41:05 malignant neoplasm of cervix (procedure) [code = 179244356] Future Scheduled 2022-01-13 BREAST CANCER [facility] Test 14:41:05 SCREENING [code = BREAST CANCER SCREENING] Future Scheduled 2022-01-13 COLONOSCOPY SCREENING [facility] Test 14:41:05 [code = COLONOSCOPY SCREENING] Future Scheduled 2022-01-13 SHINGLES VACCINES (1 [facility] Test 14:41:05 of 2) [code = SHINGLES VACCINES (1 of 2)] Future Scheduled 2022-01-13 COVID-19 VACCINE (3 - [facility] Test 14:41:05 Booster for Moderna series) [code = COVID-19 VACCINE (3 - Booster for Moderna series)] Future Scheduled 2022-01-13 HEPATITIS B VACCINES [facility] Test 14:41:05 (1 of 3 - Risk 3-dose series) [code = HEPATITIS B VACCINES (1 of 3 - Risk 3-dose series)] Future Scheduled 2021-12-24 Pneumococcal Vaccine: [facility] Test 07:34:42 Pediatrics (0 to 5 Years) and At-Risk Patients (6 to 64 Years) (1 - PCV) [code = Pneumococcal Vaccine: Pediatrics (0 to 5 Years) and At-Risk Patients (6 to 64 Years) (1 - PCV)] Future Scheduled 2021-12-24 Hepatitis C screening [facility] Test 07:34:42 (procedure) [code = 320327988] Future Scheduled 2021-12-24 Screening for [facility] Test 07:34:42 malignant neoplasm of cervix (procedure) [code = 075428265] Future Scheduled 2021-12-24 BREAST CANCER [facility] Test 07:34:42 SCREENING [code = BREAST CANCER SCREENING] Future Scheduled 2021-12-24 COLONOSCOPY SCREENING [facility] Test 07:34:42 [code = COLONOSCOPY SCREENING] Future Scheduled 2021-12-24 SHINGLES VACCINES (1 [facility] Test 07:34:42 of 2) [code = SHINGLES VACCINES (1 of 2)] Future Scheduled 2021-12-24 COVID-19 VACCINE (3 - [facility] Test 07:34:42 Booster for Moderna series) [code = COVID-19 VACCINE (3 - Booster for Moderna series)] Future Scheduled 2021-12-24 HEPATITIS B VACCINES [facility] Test 07:34:42 (1 of 3 - Risk 3-dose series) [code = HEPATITIS B VACCINES (1 of 3 - Risk 3-dose series)] Future Scheduled 2021-12-09 Pneumococcal Vaccine: [facility] Test 13:56:39 Pediatrics (0 to 5 Years) and At-Risk Patients (6 to 64 Years) (1 - PCV) [code = Pneumococcal Vaccine: Pediatrics (0 to 5 Years) and At-Risk Patients (6 to 64 Years) (1 - PCV)] Future Scheduled 2021-12-09 Hepatitis C screening [facility] Test 13:56:39 (procedure) [code = 108318179] Future Scheduled 2021-12-09 Screening for [facility] Test 13:56:39 malignant neoplasm of cervix (procedure) [code = 213122649] Future Scheduled 2021-12-09 BREAST CANCER [facility] Test 13:56:39 SCREENING [code = BREAST CANCER SCREENING] Future Scheduled 2021-12-09 COLONOSCOPY SCREENING [facility] Test 13:56:39 [code = COLONOSCOPY SCREENING] Future Scheduled 2021-12-09 SHINGLES VACCINES (1 [facility] Test 13:56:39 of 2) [code = SHINGLES VACCINES (1 of 2)] Future Scheduled 2021-12-09 COVID-19 VACCINE (3 - [facility] Test 13:56:39 Booster for Moderna series) [code = COVID-19 VACCINE (3 - Booster for Moderna series)] Future Scheduled 2021-12-09 HEPATITIS B VACCINES [facility] Test 13:56:39 (1 of 3 - Risk 3-dose series) [code = HEPATITIS B VACCINES (1 of 3 - Risk 3-dose series)] Future Scheduled 2021-12-09 INFLUENZA VACCINE [facility] Test 13:56:39 [code = INFLUENZA VACCINE] Encounters Start End Encounter Admission Attending Care Care Encounter Source Date/Time Date/Time Type Type Clinicians Facility Department ID 2022-08-[address] [facility] [id number] Common 11:19:00 Annalise [id number] [facility] 2022-06-[address] [facility] [id number] Common 10:28:01 Annalise [id number] [facility] 2022-05-[address] [facility] [id number] Common 09:47:00 Annalise [id number] [facility] 2022 Outpatient [place], [facility] ST[facility] [id number] Common 07:49:00 Annalise [id number] [facility] 2022-03-25 [place]patient [place], [facility] ST[facility] [id number] Common 12:49:01 Annalise [facility] 2022-03-24 [place]patient [place], [facility] STLMLC [id number] Common 11:16:01 Annalise [facility] 2022-03-23 Outpatient Kattegummul STLMLC STLMLC [id number] Common 15:33:00 a, Madhu [facility] 2021-10-13 Outpatient Kattegummul STLMLC STLMLC [id number] - Common 14:25:01 a, Madhu [facility] 2021-05-06 Outpatient Kattegummul STLMLC STLMLC [id number] - Common 14:30:56 a, Madhu [facility] 2021-05-06 Outpatient Kattegummul STLMLC STLMLC [id number] - Common 14:26:04 a, Madhu 29378 [facility] 2021-05-06 Outpatient Kattegummul STLMLC STLMLC [id number] - Common 14:05:28 a, Madhu 94562 [facility] 2021-05-06 Outpatient Kattegummul STLMLC STLMLC [id number] - Common 13:37:29 a, Madhu 59879 [facility] 2021-05-06 Outpatient Taos, STLMLC STLMLC [id number] Common 13:36:02 Annalise 56965 [facility] 2021-05-06 Outpatient [place], STLMLC STLMLC [id number] Common 11:25:36 Annalise 30976 [facility] 2021-02-09 Emergency [facility] [id number] Univers 02:25:[address] [facility] 2022-12-23 2022-12-23 Outpatient KYLER [facility] [id number] [place] 00:00:00 00:00:00 PUJA [address] 2022-12-23 2022-12-23 Out[facility] [id number] [place] 00:00:00 00:00:00 PUJA [address] 2022-12-14 2022-12-14 Outpatient SAHARIA, [facility] H [id number] [place] 00:00:00 00:00:00 PUJA [address] 2022-12-09 2022-12-09 Outpatient SAHARIA, [facility] H [id number] [place] 00:00:00 00:00:00 PUJA [address] 2022-12-09 2022-12-09 Outpatient SAHARIA, [facility] [id number] 1315 [place] 00:00:00 00:00:00 PUJA [address] 2022-12-09 2022-12-09 Outpatient [facility] [id number] 483 [place] 00:00:00 00:00:[address] 2022-12-06 2022-12-06 Outpatient SAHARIA, [facility] [id number] 2731 [place] 00:00:00 00:00:00 PUJA [address] 2022-12-02 2022-12-02 Outpatient COREY, [facility] 13523 82226 [place] 00:00:00 00:00:00 RAFIK [address] 2022-12-02 2022-12-02 Outpatient COREY, [facility] [id number] 97071 [place] 00:00:00 00:00:00 RAFIK [address] 2022-12-02 2022-12-02 Outpatient SAHARIA, H [facility] [id number] 5273 [place] 00:00:00 00:00:00 PUJA [address] 2022-12-02 2022-12-02 Outpatient [facility] [id number] [place] 00:00:00 00:00:[address] 2022-11-29 2022-11-29 Outpatient SAHARIA, [facility] [id number] 1359 [place] 00:00:00 00:00:00 PUJA [address] 2022-11-08 2022-11-24 Inpatient HOBEIKA, H 050 [id number] 264 [place] 00:00:00 00:00:00 MALLORY [address] 2022-10-01 2022-10-01 Documentat Alex, 1.2.840.1 [id number] 21 [id number] Methodi 00:00:00 00:00:00 ion Shezmine 23638.1.[address] [place] 3.430.2.7 Hospit a .3.699832 l .8 2022-09-18 2022-09-23 [facility] [id number] 783 [place] 00:00:00 00:00:00 Encounter BEBETO [address] 2022-09-18 2022-09-18 Travel 1.2.840.1 1.2.394.553 5551 892138 Methodi 00:00:00 00:00:[address] 3.430.2.7 0.2.7.3.698 Ho spita .3.112598 084.8 l .8 2022-09-01 2022-09-09 [facility], 1.2.840.1 [id number] [place] 00:00:00 00:00:00 Encounter BEBETO 79708.1.1 [address].7 [address] .3.810272 .8 2022-09-01 2022-09-01 Telephone Alex, 1.2.840.1 [id number] 077 [id number] Methodi 00:00:00 00:00:[address] [place] 3.430.2.7 Hospit a .3.129443 l .8 2022-09-01 2022-09-01 Travel 1.2.840.1 1.2.259.067 0577 [id number] Methodi 00:00:00 00:00:[address] 3.430.2.7 0.2.7.3.698 Ho spita .3.592032 084.8 l .8 2022-08-11 2022-08-11 [facility] Radiology [facility] 1.2.840.114 102 [id number] Univers 10:36:25 23:59:00 Encounter [place] 350.1.13.10 ity of [place] 4.2.7.2.686 [facility] [phone] [facility] [address] 2022-08-11 2022-08-11 Outpatient R RADIOLOGY [facility] [id number] Univers 10:15:12 10:35:00 ity of [facility] 2022-08-11 2022-08-11 Hospital Radiology [facility] 1.2.840.114 102 [id number] Univers 10:15:12 10:35:00 Encounter PERI 350.1.13.10 ity of [place] 4.2.7.2.686 [facility] [phone] [facility] [address] 2022-08-11 2022-08-11 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 Roberta, Adc Lab Main [facility] 1.2.8 40.114 [id number] Univers 10:00:00 10:15:00 Visit Handy Rhoades 350.1.13.10 ity of [facility] 4.2.7.2.686 [facility] PROFESSIO [phone] Hi dical NAL [address] [facility] 2022-08-07 2022-08-07 Emergency X CHARLES K [facility] ERT [id number] Univers 00:50:00 02:49:00 ity of [facility] 2022-08-07 2022-08-07 Emergency Charles, K [facility] 1.2.840.114 10 [id number] Univers 00:50:00 02:49:00 Mary WHITT 350.1.13.10 i ty of [facility] 4.2.7.2.686 [facility] [phone] [facility] [address] 2022-07-28 2022-08-03 Hospital Bebeto Ward 1.2.840.1 [id number] 027 [id number] Methodi 15:18:00 17:26:00 Encounter Willian Singleton 53228.1.[address] Tripp Cruzg 3.430.2.7 Hos alvaro .3.986428 l .8 2022-08-03 2022-08-03 Surgery Thomas, 1.2.840.1 [id number] 32520 82759 Methodi 15:00:00 16:00:[address] 3.430.2.7 Hospit a .3.046809 l .8 2022-08-03 2022-08-03 Anesthesia Kandice Rogers 1.2.840.1 [id number] 2 [id number] Methodi 15:07:00 15:29:00 Event Ariel Garza 56840.1.[address] 3.430.2.7 Hospit a .3.253395 l .8 2022-07-28 2022-07-28 Travel 1.2.840.1 1.2.694.896 1447 427309 Methodi 00:00:00 00:00:[address] 3.430.2.7 0.2.7.3.698 Ho spita .3.055981 084.8 l .8 2022-07-12 2022-07-12 Telephone Amita, 1.2.840.1 [id number] 968 [id number] Methodi 00:00:00 00:00:[address] 3.430.2.7 Hospit a .3.435431 l .8 2022-07-04 2022-07-09 Hospital Tripp Cruzg 1.2.840.1 [id number] 21 [id number] Methodi 17:50:00 11:59:00 Encounter Sharita Suresh 83864.1.[address] [facility] 3.430.2.7 Hospita .3.826343 l .8 2022-06-23 2022-06-30 Hospital [facility] 1.2.840.1 [id number] 027 [id number] Methodi 17:40:00 16:19:00 Encounter Tripp Cruzg 03462.1.[address] 3.430.2.7 Hospit a .3.043119 l .8 2022-06-29 2022-06-29 Surgery Sen, 1.2.840.1 [id number] 828782 8360 Methodi 09:00:00 10:25:[address] 3.430.2.7 Hospit a .3.325906 l .8 2022-06-28 2022-06-28 [facility], 1.2.840.1 [id number] 65860 24162 Methodi 09:15:00 23:59:00 Encounter Belem 17417.1.1 074 s t 3.430.2.7 Hospit a .3.312834 l .8 2022-06-23 2022-06-23 Travel 1.2.840.1 1.2.522.542 4016 660534 Methodi 00:00:00 00:00:[address] 3.430.2.7 0.2.7.3.698 Ho spita .3.456673 084.8 l .8 2022-06-14 2022-06-22 [facility] 1.2.840.1 104 [id number] [id number] Methodi 10:30:00 19:10:55 Visit Krystyna Mustafa 99947.1.[address] 3.430.2.7 Hospit a .3.916223 l .8 2022-06-22 2022-06-22 Documentat Estephania, 1.2.840.1 [id number] 267 [id number] Methodi 00:00:00 00:00:00 ion Bala 26092.1.[address] Louie 3.430.2.7 Hospit a .3.670582 l .8 2022-06-21 2022-06-21 [facility], 1.2.840.1 [id number] 839 [id number] Methodi 13:18:22 23:59:00 Encounter Jose Raul Lucero 58530.1.[address] 3.430.2.7 Hospit a .3.394412 l .8 2022-06-21 2022-06-21 [facility], 1.2.840.1 [id number] 052 [id number] Methodi 10:28:26 12:10:00 Encounter Rafik Mallory 00721.1.[address] 3.430.2.7 Hospit a .3.534838 l .8 2022-06-21 2022-06-21 [facility], 1.2.840.1 [id number] 646 [id number] [place] 00:00:00 00:00:00 Encounter JOSE RAUL 66060.1.1 [address].7 [address] .3.137375 .8 2022-06-21 2022-06-21 Travel 1.2.840.1 1.2.742.995 1500 468282 Methodi 00:00:00 00:00:[address] 3.430.2.7 0.2.7.3.698 Ho spita .3.426116 084.8 l .8 2022-06-14 2022-06-14 [facility], 1.2.840.1 [id number] 523 [id number] Methodi 13:44:44 23:59:00 Encounter Julesik Mallory 57906.1.[address] 3.430.2.7 Hospit a .3.269422 l .8 2022-06-14 2022-06-14 [facility], 1.2.840.1 [id number] 305 [id number] Methodi 13:44:24 23:59:00 Encounter Julesik Mallory 48996.1.[address] 3.430.2.7 Hospit a .3.066433 l .8 2022-06-14 2022-06-14 [facility], 1.2.840.1 [id number] 986 [id number] Methodi 13:44:01 23:59:00 Encounter Julesik Mallory 16571.1.[address] 3.430.2.7 Hospit a .3.356308 l .8 2022-06-14 2022-06-14 [facility] Jose Raul Lucero 1.2.840.1 104 [id number] Methodi 13:00:00 14:00:00 Work Aramis John 40242.1.[address] 3.430.2.7 Hospit a .3.816894 l .8 2022-06-14 2022-06-14 [facility], 1.2.840.1 [id number] 821 [id number] Methodi 13:43:41 13:43:41 Encounter Julesik Mallory 78326.1.[address] 3.430.2.7 Hospit a .3.589229 l .8 2022-06-14 2022-06-14 [facility], 1.2.840.1 [id number] 21 [id number] Methodi 10:00:00 11:00:00 Jose Raul Mallory 58530.1.1 929 s t 3.430.2.7 Hospit a .3.930202 l .8 2022-06-14 2022-06-[address] [facility] Jose Raul Lucero 1.2.840.1 104 303519 [id number] Methodi 10:15:00 10:30:00 Visit Belem Duarte 01952.1.[address] 3.430.2.7 Hospit a .3.817719 l .8 2022-06-14 2022-06-14 [facility] 1.2.840.1 10 9862756 [id number] Methodi 09:00:00 10:30:00 Support Laura Aguilera 14514.1.1 931 s t 3.430.2.7 Hospit a .3.955238 l .8 2022-06-14 2022-06-[address] [facility], 1.2.840.1 [id number] 2100 833981 Methodi 07:00:00 07:10:00 Jose Raul Mallory 36186.1.1 926 s t 3.430.2.7 Hospit a .3.386012 l .8 2022-06-14 2022-06-14 Travel 1.2.840.1 1.2.611.519 2658 004499 Methodi 00:00:00 00:00:[address] 3.430.2.7 0.2.7.3.698 Ho spita .3.912324 084.8 l .8 2022-06-13 2022-06-13 Travel 1.2.840.1 1.2.042.440 4731 579088 Methodi 00:00:00 00:00:[address] 3.430.2.7 0.2.7.3.698 Ho spita .3.843391 084.8 l .8 2022-06-08 2022-06-08 Orders Estephania, 1.2.840.1 [id number] 799992 0771 Methodi 00:00:00 00:00:00 Only Bala 12831.1.[address] Louie 3.430.2.7 Hospit a .3.819253 l .8 2022-05-24 2022-05-30 [facility] 365 [id number] 868 [place] 00:00:00 00:00:00 Encounter BEBETO [address] 2022-05-28 2022-05-28 Surgery Verónica, 1.2.840.1 [id number] 373286 2577 Methodi 16:15:00 17:30:00 Coe KyrieJason 38115.1.[address] 3.430.2.7 Hospit a .3.753962 l .8 2022-05-28 2022-05-28 Anesthesia Fer Delarosa 1.2.840 .1 [id number] [id number] Methodi 16:06:00 16:35:00 Event Cecilia Martino 26046.1.[address] 3.430.2.7 Hospit a .3.020778 l .8 2022-05-25 2022-05-25 Telephone Gerardos, 1.2.840.1 [id number] 2099 245110 Methodi 00:00:00 00:00:[address] 3.430.2.7 Hospit a .3.166826 l .8 2022-05-24 2022-05-24 Travel 1.2.840.1 1.2.834.832 1749 951925 Methodi 00:00:00 00:00:[address] 3.430.2.7 0.2.7.3.698 Ho spita .3.341910 084.8 l .8 2022-05-06 2022-05-20 Hospital Oneil Rodriguez 1.2.840.1 [id number] 2099 [id number] Methodi 12:53:00 15:57:00 Encounter Anand Arora 51593.1.[address] Jeremy Sandoval 3.430.2.7 Hospita .3.335165 l .8 2022-05-19 2022-05-19 Anesthesia Jeovany Sanchesh 1.2.840.1 11560 1042 [id number] Methodi 16:20:00 16:54:00 Event Estefania Hameed 05257.1.[address] 3.430.2.7 Hospit a .3.667906 l .8 2022-05-19 2022-05-19 Surgery Thomas, 1.2.840.1 [id number] 61638 13752 Methodi 15:30:00 16:30:[address] 3.430.2.7 Hospit a .3.958289 l .8 2022-05-06 2022-05-06 Travel 1.2.840.1 1.2.090.510 8091 432978 Methodi 00:00:00 00:00:[address] 3.430.2.7 0.2.7.3.698 Ho spita .3.786343 084.8 l .8 2022-04-15 2022-04-15 Emergency X [facility] ERT [id number] Univers 20:21:00 22:43:00 ESTEPHANIA aburto of [facility] 2022-04-15 2022-04-15 Emergency [facility] 1.2.233.621 4754 9933 Univers 20:21:00 22:43:00 Estephania WHITT 350.1.13.10 i ty of Maulik PARRY 4.2.7.2.686 [facility] [phone] [address] 2022-04-09 2022-04-09 Emergency [facility] [id number] 31 Univers 19:38:00 22:06:00 EMILY aburto [facility] 2022-04-09 2022-04-09 [facility] 1.2.924.482 8448 3215 Univers 19:38:00 22:06:00 Emily DELACRUZEMMA 350.1.13.10 ity [facility] 4.2.7.2.686 [facility] [phone] [address] 2022-03-17 2022-03-17 Documentat Ijir, 1.2.840.1 [id number] 701 8998414 Methodi 00:00:00 00:00:00 ion Rhoda 46128.1.[address] 3.430.2.7 Hospit a .3.064444 l .8 2022-02-25 2022-02-27 Emergency [facility] Hos [id number] 000 [place] 00:00:00 00:00:00 [facility] [address] 2022-02-25 2022-02-25 Travel 1.2.840.1 1.2.493.912 8610 264443 Methodi 00:00:00 00:00:[address] 3.430.2.7 0.2.7.3.698 spita .3.429067 084.8 l .8 2022-02-15 2022-02-15 Emergency [facility]RT [id number] 86 Univers 13:44:00 16:34:00 FLORIAN aburto [facility] 2022-02-15 2022-02-15 Emergency [facility] 1.2.161.480 1832 7602 Univers 13:44:00 16:34:00 Florian WHITT 350.1.13.10 i ty of [facility] 4.2.7.2.686 [facility] [phone] [address] 2022-01-31 2022-02-04 [facility] Rolando Olivier Pettit 1.2.840.1 66075 1027 [id number] Methodi 18:11:00 16:36:00 Encounter Bebeto Ward 73187.1.[address] Nakia Cruz 3.430.2.7 Hos alvaro .3.139832 l .8 2022-02-03 2022-02-03 Anesthesia Aziza Cordero 1.2.840.1 [id number] Methodi 14:37:00 15:02:00 Event Bebeto Heck 58902.1.[address] 3.430.2.7 Hospit a .3.309274 l .8 2022-02-03 2022-02-03 Surgery Verónica, 1.2.840.1 [id number] 118234 8635 Methodi 14:30:00 15:00:00 Carolni Diaz 53975.1.[address] 3.430.2.7 Hospit a .3.101809 l .8 2022-02-02 2022-02-02 Prep for Sanches, 1.2.840.1 [id number] 05445 19527 Methodi 00:00:00 00:00:00 Surgery Carolin Diaz 37802.1.[address] 3.430.2.7 Hospit a .3.858276 l .8 2022-01-01 2022-01-06 [facility] 1.2.840 .1 [id number] Methodi 23:18:00 19:11:00 Encounter Nakia Cruz 00602.1.[address] [facility] 3.430.2.7 Hospita .3.881913 l .8 2022-01-05 2022-01-05 Surgery Angelakdelicia, 1.2.840.1 [id number] 27290 71038 Methodi 16:00:00 16:30:[address] 3.430.2.7 Hospit a .3.302773 l .8 2022-01-05 2022-01-05 Anesthesia Handy Dietrich 1.2.840 .1 625317312 [id number] Methodi 15:55:00 16:18:00 Event Bebeto Heck 98002.1.[address] 3.430.2.7 Hospit a .3.089866 l .8 2022-01-02 2022-01-02 Travel 1.2.840.1 1.2.783.902 3528 398636 Methodi 00:00:00 00:00:[address] 3.430.2.7 0.2.7.3.698 Ho spi .3.685565 084.8 l .8 2021-12-11 2021-12-18 Hospital Stevo Hoskins 1.2.840.1 104 753804 [id number] Methodi 16:59:00 17:46:00 Encounter Jeremy Sandoval Deo 13781.1.[address]ebeto [address] 3.430.2.7 Hospita .3.283876 l .8 2021-11-26 2021-12-03 Hospital [facility] 1.2.840.1 57407 1027 [id number] Methodi 16:08:00 14:06:00 Encounter Jeremy Sandoval Deo 32623.1.[address] Willian Singleton 3.430.2.7 Hospita Nakia Cruz .3.411623 l .8 2021-11-30 2021-11-30 Anesthesia Manan Trujillogabriel 1.2.840.1 1 55743740 [id number] Methodi 14:50:00 15:11:00 Event Feng Burgos 84553.1.[address] 3.430.2.7 Hospit a .3.883702 l .8 2021-11-30 2021-11-30 Surgery Thomas, 1.2.840.1 [id number] 99961 51070 Methodi 14:30:00 15:00:[address] 3.430.2.7 Hospit a .3.297331 l .8 2021-10-21 2021-10-26 [facility] Sharita Suresh 1.2.840.1 124397491 [id number] Methodi 09:04:00 14:43:00 Encounter Nakia Cruz 00190.1.[address] Anand Arora 3.430.2.7 Hospita .3.922076 l .8 2021-10-23 2021-10-23 Surgery Thomas, 1.2.840.1 [id number] 30984 91898 Methodi 12:30:00 13:30:[address] 3.430.2.7 Hospit a .3.144634 l .8 2021-10-23 2021-10-23 Anesthesia Aziza Cordero 1.2.840.1 [id number] Methodi 12:25:00 12:53:[address] 3.430.2.7 Hospit a .3.886150 l .8 2021-10-21 2021-10-21 Travel 1.2.840.1 1.2.576.059 9985 359045 Methodi 00:00:00 00:00:[address] 3.430.2.7 0.2.7.3.698 Ho spita .3.844279 084.8 l .8 2021-09-28 2021-09-29 Emergency X Sukhdev SOTO [facility] ERT [id number] 8594 Univers 22:03:00 00:15:00 ity of [facility] 2021-09-28 2021-09-29 Emergency Sukhdev Soto [facility] 1.2.840.114 94 [id number] Univers 22:03:00 00:15:00 Mary WHITT 350.1.13.10 i ty of [place] 4.2.7.2.686 [facility] [phone] [address] 2021-09-28 2021-09-28 Orders Doctor VERONIQUE 1.2.840.114 147877 31 Univers 00:00:00 00:00:00 Only Unassigned, GONZALO 350.1.13.10 ity of [place] [facility] 4.2.7.2.686 Quang [phone] [facility] [address] 2021-04-07 2021-04-07 Letter Orthopedic [facility] 1.2.840.114 900 69479 Univers 00:00:00 00:00:00 (Out) Clinic SPECIALTY 350.1.13.10 it[place] [phone] Hi pritesh PATINO [address] [facility] 2021-04-02 2021-04-02 Emergency X NORMA, [facility] ERT [id number] 9867 Univers 12:58:00 15:25:00 FOLUSHO ity [facility] 2021-04-02 2021-04-02 Emergency [facility] 1.2.840.114 89 [id number] Univers 12:58:00 15:25:00 Kavitao José Manuel WHITT 350.1.13.10 ity of [place] 4.[place].7.2.[place] [id number] [facility] [address] 2021-03-11 2021-03-11 Telephone VERONIQUE Cruz 1.2.575.492 5315 9674 Univers 00:00:00 00:00:00 Frances SÁNCHEZ 350.1.13.10 it y of HOSPITAL 4.2.7.2.686 Quang as [id number] [facility] [address] 2021-03-10 2021-03-10 Outpatient R NETTIE [facility] [id number] 037 Univers 14:45:00 14:51:[address] [facility] 2021-03-10 2021-03-10 Laboratory Only, Ang Db Test [facility] 1.2.8 40.114 [id number] Univers 14:29:53 14:44:53 Only Unknown, Attending HEALTH 350.1.13.10 ity of [place] 4.2.7.2.686 Quang as MARINA?BLEA [phone] Hi mariacarol STINSON [address] [facility] 2021-03-10 2021-03-10 Orders Doctor PIPER 1.2.840.114 [id number] Univers 00:00:00 00:00:00 Only Unassigned, GONZALO 350.1.13.10 ity of [place] [facility] 4.2.7.2.686 Quang as [id number] [facility] [address] 2021-02-18 2021-02-20 Hospital Sharita Suresh 1.2.840.1 [id number] Methodi 15:45:00 14:08:00 Encounter Jeremy Sandoval 39776.1.[address] 3.430.2.7 Hospit a .3.559023 l .8 2021-02-03 2021-02-[address] [facility] [id number] 03 Univers 21:10:00 03:21:00 GARTH ity of [facility] 2020-10-21 2020-10-27 [facility] [id number] 3641 [place] 00:00:00 00:00:00 BEBETO [address] 2020-10-06 2020-10-06 Transition Jocelyne Taylor 1.2.840.114 853 85657 Univers 00:00:00 00:00:00 of Care Madiha Sotelo 350.1.13.10 i ty of [place].2.[place] [phone] [facility] [address] 2020-09-28 2020-10-03 [facility] Rene Evans [facility] 1.2.840. 114 [id number] Univers 22:23:00 13:05:00 Encounter Shaina Pinto [id number] [place] [phone] [facility] [address]81 [address] 2020-09-28 2020-09-28 Orders Doctor VERONIQUE 1.2.840.114 [id number] Univers 00:00:00 00:00:00 Only Unassigned, GONZALO [id number] ity of [place] [facility] 4.2.7.2.686 [place] [phone] [facility] [address]9 [address] 2020-09-09 2020-09-12 Inpatient NAKIA CRUZ [facility] [id number] [place] 00:00:00 00:00:[address] 2020-08-08 2020-08-08 [facility] [id number] Univers 15:40:00 15:40:00 TERRI ity [facility] 2020-07-11 2020-07-11 Outpatient [facility] [id number] Univers 15:40:00 15:40:00 ity [facility] 2020-06-09 2020-06-22 Inpatient NAKIA CRUZ [facility] [id number] [place] 00:00:00 00:00:00 836 Method i 2020-03-19 2020-03-23 Inpatient DINAKAR, [facility] [id number] [place] 00:00:00 00:00:00 JEREMY 742 Method i 2020-03-14 2020-03-18 Inpatient DINAKAR, [facility] [id number] [place] 00:00:00 00:00:00 JEREMY 157 Method i 2020-02-13 2020-02-13 Laboratory Lab, [facility] Fam Pob I [facility] 1.2. 840.114 [id number] [facility] 10:22:10 10:42:10 Only Dulce [facility] [id number] ity of [place] 4.2.7.2.686 Quang as Professio [phone] [address] Office Building [facility] 2020-02-13 2020-02-13 Laboratory Lab, [facility] 1.2.840.114 [id number] 10:22:10 10:42:10 Only Fam Pob I Health [id number] [place] 4.2.7.2.686 Professio [phone] nal [facility] Office Building [facility] 2019-09-28 2019-09-28 [facility] [id number] Common 09:00:00 09:00:00 t [facility] 2019-09-18 2019-09-18 [facility] [id number] Common 09:30:00 09:30:00 t [facility] Sp[facility] t [facility] 2019-08-14 2019-08-14 Transition Jocelyne Alexandra 1.2.840.114 [id number] Univers 00:00:00 00:00:00 of Care Jovanny Coopery [id number] ity of [place] 4.2.7.2.686 [facility] [phone] [facility] [address] 2019-08-14 2019-08-14 Jocelyne Lamas 1.2.840.114 [id number] 00:00:00 00:00:00 of Care Jovanny Coopery [id number] [place] 4.2.7.2.686 [id number] [id number] 2019-08-10 2019-08-11 Inpatient U [facility] [id number] Univers 02:55:00 16:09:00 ADNAN ity of [facility] 2019-08-10 2019-08-11 [facility] 1.2.017.291 [id number] [facility] 02:55:00 16:09:00 Encounter Shaina [place] [id number] ity of [place] 4.2.7.2.[address] [facility] [phone] [facility] 081 Branch 2019-08-10 2019-08-11 [facility] 1.2.476.149 [id number] 02:55:00 16:09:00 Encounter Shaina [place] [id number] [place] 4.2.7.2.686 [place] [phone] 081 Results Test Description Test Time Test Comments Results Result Comments Source SARS-CoV-2 (COVID-19) RNA [Presence] in Respiratory sp ecimen by 2022-11-09 10:49:28 HELENA with probe detection Test Item Value Reference Range Interpretation Comme nts SARS-CoV-2 (COVID-19) RNA [Presence] in Respiratory specimen by Not detected HELENA with probe detection (test code = 19170-8) 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 employed in a healthcare setting (test code = Un known 26776-5) Whether the patient has symptoms related to condition of interest U nknown (test code = 93887-9) Whether the patient was hospitalized for condition of interest Unkn own (test code = 39093-9) Whether the patient was admitted to intensive care unit (ICU) for U nknown condition of interest (test code = 85531-4) Whether patient resides in a congregate care setting (test code = U nknown 24201-1) status (test code = 63997-0) Unknown Date and time of symptom onset (test code = 67933-4) Unknown GARDINER ANABELLA Escobar [id number] 14:39:00 Test Item Value Reference Range Interpretation Comments Urine culture (test SEE COMMENT Bacteriu bartolo screen code = 2340063) negative. [facility] [id number] 20:21:20 Test Item Value Reference Range Interpretation Comments Case number (test code = [id number]) Cytology See link below for (non-gynecological) PDF Lab Report report (test code = 1178) Result status (test code This is Final Report = [id number]) for [id number] [id number] 07:11:37 Test Item Value Reference Range Interpretation Comments TROPONIN I (test code = 0.002 ng/mL <=0.034 4269056839) SNOW (test code = SNOW) Reference (Normal) [...] biotin. Lab Interpretation Normal (test code = 24146-1) [facility] WITH [id number] 07:03:49 Test Item Value Reference Range Interpretation Comments WBC (test code = 2.64 See_Comment L [Automated 4408-2) message] The sy stem which generated this result transmitted reference range : 4.30 - 11.10 10*3/?L. The reference range was not used to interpret this result as normal/abnormal . RBC (test code = 3.33 See_Comment L [Automated 599-8) message] The sy stem which generated this [...] (test code = 60.6 fL 39.0-49.9 H 20908-2) RDW-CV (test code = 17.4 % 12.0-15.5 H 788-0) PLT (test code = 52 See_Comment L [Automated 777-3) message] The sy stem which generated this result transmitted reference range : 166 - 358 10*3/ ?L. The reference r davi was not used to interpret this result as normal/abnormal . MPV (test code = 11.8 fL 9.5-12.9 44153-7) IPF % (test code = 3.2 % 1.3-7.7 Platelet count 1689063784) measured by fluorescence method. NRBC/100 WBC (test 0.0 See_Comment [Automat ed code = 5123610817) message] The system which generated this result transmitted reference range : 0.0 - 10.0 /100 WBCs. The refer ence range was not u sed to interpret th is result as normal/abnormal . NRBC x10^3 (test code See_Comment [Auto mated = 8578987045) message] The s ystem which generated this result transmitted reference range : 10*3/?L. The reference range was not used to interpret this result as normal/abnormal . GRAN MAT (NEUT) % 63.9 % (test code = 770-8) IMM GRAN % (test code 0.40 % = 9788369498) LYMPH % (test code = 20.5 % 736-9) MONO % (test code = 11.7 % 5905-5) EOS % (test code = 2.7 % 713-8) BASO % (test code = 0.8 % 706-2) GRAN MAT x10^3(ANC) 1.69 10*3/uL 1.88-7.09 L (test code = 9613674141) IMM GRAN x10^3 (test 0.00-0.06 code = 5845563625) LYMPH x10^3 (test code 0.54 10*3/uL 1.32-3.29 L = 731-0) MONO x10^3 (test code 0.31 10*3/uL 0.33-0.92 L = 742-7) EOS x10^3 (test code = 0.07 10*3/uL 0.03-0.39 711-2) BASO x10^3 (test code 0.01-0.07 = 704-7) PLT ESTIMATE (test Decreased Normal A code = 9317-9) Lab Interpretation Abnormal (test code = 78196-2) [facility]. METABOLIC PANEL (53728)2022-08-07 07:00:18 Test Item Value Reference Range Interpretation Comments NA (test code = 139 mmol/L 135-145 0591391539) K (test code = 3.0 mmol/L 3.5-5.0 L 9599249356) CL (test code = 105 mmol/L 98-108 8477836019) CO2 TOTAL (test code = 29 mmol/L 23-31 2536675722) AGAP (test code = 5 2-16 4178640637) BUN (test code = 10 mg/dL 7-23 1710341010) GLUCOSE (test code = 114 mg/dL 70-110 H 7803935936) CREATININE (test code = 0.56 mg/dL 0.50-1.04 3125677743) TOTAL BILI (test code = 2.6 mg/dL 0.1-1.1 H 4738866559) CALCIUM (test code = 7.9 mg/dL 8.6-10.6 L 9064517858) T PROTEIN (test code = 6.1 g/dL 6.3-8.2 L 3604522003) ALBUMIN (test code = 3.1 g/dL 3.5-5.0 L 4763034190) ALK PHOS (test code = 144 U/L 34-122 H 0935725275) ALTv (test code = 52 U/L 5-35 H 1742-6) AST(SGOT) (test code = 61 U/L 13-40 H 7495184839) eGFR (test code = 110.1 mL/min/1.73m2 9423596588) SNOW (test code = SNOW) Association of [...] tests). Lab Interpretation Abnormal (test code = 48793-4) [facility] 07[facility]00:18 Test Item Value Reference Range Interpretation Comments MAGNESIUM (test code = 0033094262) 1.8 mg/dL 1.7-2.4 Lab Interpretation (test code = Normal 96792-9) [facility] 06:59:58 Test Item Value Reference Range Interpretation Comments LIPASE (test code = 6259527967) 178 U/L 0-220 Lab Interpretation (test code = Normal 08702-9) [facility] qbnndad8650-51-69 14:16:32 Test Item Value Reference Range Interpretation Comments Case number (test code = [id number]) Surgical pathology See link below for report (test code = PDF Lab Report 1717) Result status (test code This is Final Report = [id number]) for [id number] Rastafarian KguzxmprAZCY-KxY-8 (COVID-19) RNA [Presence] in Respiratory specimen by HELENA with probe epjnjvkhd5501-27-46 00:20:03 Test Item Value Reference Range Interpretation Comments SARS-CoV-2 (COVID-19) RNA Not detected [Presence] in Respiratory specimen by HELENA with probe detection (test code = 25889-8) 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 employed in a Unknown healthcare setting (test code = 10279-9) Whether the patient has symptoms Unknown related to condition of interest (test code = 02330-6) Whether the patient was Unknown hospitalized for condition of interest (test code = 25116-6) Whether the patient was admitted Unknown to intensive care unit (ICU) for condition of interest (test code = 88883-5) Whether patient resides in a Unknown congregate care setting (test code = 71661-3) status (test code = Unknown 69916-6) Date and time of symptom onset Unknown (test code = 75027-2) [facility] MPXKYCJJ-AdF-2 (COVID-19) RNA [Presence] in Respiratory specimen by HELENA with probe hgvdngmes0165-06-92 23:53:39 Test Item Value Reference Range Interpretation Comments SARS-CoV-2 (COVID-19) RNA Not detected [Presence] in Respiratory specimen by HELENA with probe detection (test code = 86630-7) 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 employed in a Unknown healthcare setting (test code = 30379-6) Whether the patient has symptoms Unknown related to condition of interest (test code = 60769-0) Whether the patient was Unknown hospitalized for condition of interest (test code = 36716-0) Whether the patient was admitted Unknown to intensive care unit (ICU) for condition of interest (test code = 61143-1) Whether patient resides in a Unknown congregate care setting (test code = 09964-6) status (test code = Unknown 35810-2) Date and time of symptom onset Unknown (test code = 40650-4) [facility] aevbuni3948-93-27 14:22:00 Test Item Value Reference Range Interpretation Comments Urine culture Mixed radha Specimen isolate (test <=10-3 col/cc InformationSp ecimen code = 36356-5) Source: Urin eSpecimen Site: Clean cat [facility]2023-03-27 02:43:00 Test Item Value Reference Range Interpretation Comments POC glucose (test code 200 mg/dL 65-99 H Opera tor Name: Stein = 38401-8) SnehalDevice ID : [id number] able: [facility] Notified assistant manager of operations Interpretation Abnormal (test code = 58008-7) [facility]2023-03-27 02:43:00 Test Item Value Reference Range Interpretation Comments POC glucose (test code 200 mg/dL 65-99 H Opera tor Name: Stein = 67839-9) SnehalDevice ID : [id number] able: [facility] Notified assistant manager of operations Interpretation Abnormal (test code = 59496-1) [facility] platelet pheresis, 1 Units, Leukoreduced, CMV Negative 2022-06-29 13:44:00 Test Item Value Reference Range Interpretation Comments Product name (test code Platelets Aph LR, Path = 25) Red cont1 Unit number (test code [id number] = 8521670) Product code (test code I9723I02 = 3092) Dispense status (test Transfused code = 24) Blood expiration date (test code = 302) Blood type code (test 5100 code = 308) Blood type (test code = O POSITIVE 1314) Compatibility (test Not required code = 6400) [facility], 1 Units, Leukoreduced, CMV Negative 2022-06-29 13:44:00 Test Item Value Reference Range Interpretation Comments Product name (test code Platelets Aph LR, Path = 25) Red cont1 Unit number (test code [id number] = 0598810) Product code (test code R5208W62 = 3092) Dispense status (test Transfused code = 24) Blood expiration date (test code = 302) Blood type code (test 5100 code = 308) Blood type (test code = O POSITIVE 1314) Compatibility (test Not required code = 6400) [facility] RinekdgrNSCG-UcP-0 (COVID-19) RNA [Presence] in Respiratory specimen by HELENA with probe yrzgfjjga5893-23-66 01:49:50 Test Item Value Reference Range Interpretation Comments SARS-CoV-2 (COVID-19) RNA Not detected [Presence] in Respiratory specimen by HELENA with probe detection (test code = 38874-7) 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 employed in a Unknown healthcare setting (test code = 03023-3) Whether the patient has symptoms Unknown related to condition of interest (test code = 40211-4) Whether the patient was Unknown hospitalized for condition of interest (test code = 05235-0) Whether the patient was admitted Unknown to intensive care unit (ICU) for condition of interest (test code = 69397-2) Whether patient resides in a Unknown congregate care setting (test code = 48982-0) status (test code = Unknown 12133-4) Date and time of symptom onset Unknown (test code = 29396-6) [facility] WESTSpirometry, diffusion, lung ezpqxhk4754-68-37 18:16:50 Test Item Value Reference Range Interpretation [...] ated message] code = 5528) The system Prescient generated this result transmitted ref erence range: [...] Pre (test code = 11.4 g(Hb)/dL 5540) [facility] diffusion, lung myvtsna9773-22-23 18:16:50 Test Item Value Reference Range Interpretation [...] ated message] code = 5528) The system [employer] generated this result transmitted ref erence range: [...] Pre (test code = 11.40 g(Hb)/dL 5540) [facility] antigen jcrjc2952-27-02 12:09:09 Test Item Value Reference Range Interpretation Comments Interpretation (test code Additional Antibody = 0960672) Information:DP6=DPB1 *06:01/DPA1*01:03 [facility] serum ID (test code = [id number]-[id number] 5866) [facility] serum collection D&T 06/14/2022 12:37 PM [...] = 5869) Case number (test code = [id number]) Single antigen beads See link below for (test code = 4604) PDF Lab Report [facility] antigen ctdcj5804-73-91 12:09:09 Test Item Value Reference Range Interpretation Comments Interpretation (test code Additional Antibody = 6059008) Information:DP6=DPB1 *06:01/DPA1*01:03 SAB serum ID (test code = [id number]-[id number] 5866) [facility] serum collection D&T 06/14/2022 12:37 PM [...] = 5869) Case number (test code = [id number]) Single antigen beads PDF See link below for (test code = 4604) PDF Lab Report [facility], qkcyo0400-48-54 07:59:00 Phosphatidylethanol, 16:0/18:1 (POPEth)<10ng/mL06/16/2022 1:59 AM [facility] REF LABPhosphatidylethanol, 16:0/18:2 (PLPEth)<10ng/mL06/16/2022 1:59 AM [facility] [place] [facility] HospitalPhosphatidylethanol, bxbff3392-44-19 07:59:00Phosphatidylethanol, 16:0/18:1 (POPEth)<10ng/mL06/16/2022 1:59 AM [facility] [place] REF LABPhosphatidylethanol, 16:0/18:2 (PLPEth)<10ng/mL06/16/2022 1:59 AM [facility] LABMethodist HospitalEC 12 qvkp4422-91-73 03:36:25 Test Item Value Reference Range Interpretation Comments Ventricular rate (test 53 code = 253) Atrial rate (test code 53 = 255) MT interval (test code 144 = 266) QRSD [...] Mercer MD (1042) on 06/14/2022 9:36:22 PM [place] [address] ayfw5900-72-44 03:36:25 Test Item Value Reference Range Interpretation Comments Ventricular rate (test 53 code = 253) Atrial rate (test code 53 = 255) MT interval (test code 144 = 266) QRSD [...] Mercer MD (1042) on 06/14/2022 9:36:22 PM [facility]-2 (COVID-19) RNA [Presence] in Respiratory specimen by HELENA with probe hqackqmxo0743-61-94 18:27:06 Test Item Value Reference Range Interpretation Comments SARS-CoV-2 (COVID-19) RNA Not detected [Presence] in Respiratory specimen by HELENA with probe detection (test code = 81768-7) 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 employed in a Unknown healthcare setting (test code = 65675-7) Whether the patient has symptoms Unknown related to condition of interest (test code = 50025-1) Whether the patient was Unknown hospitalized for condition of interest (test code = 44213-1) Whether the patient was admitted Unknown to intensive care unit (ICU) for condition of interest (test code = 49259-4) Whether patient resides in a Unknown congregate care setting (test code = 86724-9) status (test code = Unknown 06963-7) Date and time of symptom onset Unknown (test code = 19914-2) [facility] Preliminary Interpretation - Not an Bmalw0076-35-62 02:01:22 Test Item Value Reference Range Interpretation Comments SNOW (test code = SNOW) Radha Lin MD 06/15/2022 7:54 [facility] Preliminary Interpretation - Not an OrderPerformed by: Radha Lin MDAuthorized by: Radha Lin MD ECG reviewed by ED Physician in the absence of a work from home: yes Interpretation: Interpretation: abnormal Rate: ECG rate: 75 ECG rate assessment: normal Rhythm: Rhythm: sinus rhythm Ectopy: Ectopy: none QRS: QRS axis: Normal QRS intervals: NormalConduction: Conduction: abnormal Abnormal conduction: complete RBBB ST segments: ST segments: NormalT waves: T waves: normal Lab Interpretation Abnormal (test code = 51130-5) [facility] ED Preliminary Interpretation - Not an Mdpvg7243-14-84 02:01:22 Test Item Value Reference Range Interpretation Comments SNOW (test code = SNOW) Radha Lin MD 06/15/2022 7:54 [facility] Preliminary Interpretation - Not an OrderPerformed by: Radha Lin MDAuthorized by: Radha Lin MD ECG reviewed by ED Physician in the absence of a work from home: yes Interpretation: Interpretation: abnormal Rate: ECG rate: 75 ECG rate assessment: normal Rhythm: Rhythm: sinus rhythm Ectopy: Ectopy: none QRS: QRS axis: Normal QRS intervals: NormalConduction: Conduction: abnormal Abnormal conduction: complete RBBB ST segments: ST segments: NormalT waves: T waves: normal Lab Interpretation Abnormal (test code = 01655-7) [facility] fresh frozen plasma, 1 Guief3724-66-22 18:35:00 Test Item Value Reference Range Interpretation Comments Product name (test code Thawed Plasma Pheresis = 25) Pt 1 Unit number (test code [id number] = 5025581) Product code (test code S6688L75 = 3092) Dispense status (test Transfused code = 24) Blood expiration date (test code = 302) Blood type code (test 8400 code = 308) Blood type (test code = AB POSITIVE 1314) Compatibility (test Not required code = 6400) [facility] fresh frozen plasma, 1 Ljasz9819-93-59 18:35:00 Test Item Value Reference Range Interpretation Comments Product name (test code Thawed Plasma Pheresis = 25) Pt 1 Unit number (test code [id number] = 3113491) Product code (test code O5000U71 = 3092) Dispense status (test Transfused code = 24) Blood expiration date (test code = 302) Blood type code (test 8400 code = 308) Blood type (test code = AB POSITIVE 1314) Compatibility (test Not required code = 6400) [facility] RNA [Presence] in Respiratory specimen by HELENA with probe nufuvlike9565-28-12 22:34:07 Test Item Value Reference Range Interpretation Comments SARS-CoV-2 (COVID-19) RNA Not detected [Presence] in Respiratory specimen by HELENA with probe detection (test code = 22533-5) 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 employed in a Unknown healthcare setting (test code = 76925-0) Whether the patient has symptoms Unknown related to condition of interest (test code = 82407-4) Whether the patient was Unknown hospitalized for condition of interest (test code = 09332-7) Whether the patient was admitted Unknown to intensive care unit (ICU) for condition of interest (test code = 67795-0) Whether patient resides in a Unknown congregate care setting (test code = 56517-3) status (test code = Unknown 48346-9) Date and time of symptom onset Unknown (test code = 82296-7) [facility] RBC, 1 Txlva3377-31-65 16:55:00 Test Item Value Reference Range Interpretation Comments Product name (test code Red Cells AS1 Leukored = 25) Irrad Unit number (test code [id number] = 8330808) Product code (test code C0521W21 = 3092) Dispense status (test Transfused code = 24) Blood expiration date (test code = 302) Blood type code (test 8400 code = 308) Blood type (test code = AB POSITIVE 1314) Compatibility (test Compatible code = 6400) [facility] RBC, 1 Wjrsl9650-02-30 16:55:00 Test Item Value Reference Range Interpretation Comments Product name (test code Red Cells AS1 Leukored = 25) Irrad Unit number (test code [id number] = 4365822) Product code (test code H8299X43 = 3092) Dispense status (test Transfused code = 24) Blood expiration date (test code = 302) Blood type code (test 8400 code = 308) Blood type (test code = AB POSITIVE 1314) Compatibility (test Compatible code = 6400) [facility] HospitalInfluenza virus A and B jll3167-16-81 18:42:46 Test Item Value Reference Range Interpretation Comments SARS-CoV-2 (COVID-19) RNA Not detected [Presence] in Respiratory specimen by HELENA with probe detection (test code = 31088-1) Whether patient resides in a No congregate care setting (test code = 50821-3) Date and time of symptom onset Unknown (test code = 30045-2) Whether the patient was No hospitalized for condition of interest (test code = 27704-3) Whether the patient was admitted No to intensive care unit (ICU) for condition of interest (test code = 31876-3) 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 employed in a No healthcare setting (test code = 64397-7) Whether the patient has symptoms No related to condition of interest (test code = 40794-0) status (test code = No 55218-8) [facility] with Kgkvnvychewg7514-88-18 03:42:09 Test Item Value Reference Range Interpretation [...] (test code = 52.8 fL 39.0-49.9 H 40521-0) RDW-CV (test code = 17.0 % 12.0-15.5 H 788-0) PLT (test code = See_Comment L [Automated 777-3) message] The sy stem which generated this result transmitted reference range : 166 - 358 10*3/ ?L. The reference r davi was not used to interpret this result as normal/abnormal . MPV (test code = 9.8 fL 9.5-12.9 84748-7) IPF % (test code = 2.5 % 1.3-7.7 Platelet count 3127327315) measured by fluorescence method. NRBC/100 WBC (test See_Comment [Automat ed code = 3692671564) message] The system which generated this result transmitted reference range : 0.0 - 10.0 /100 WBCs. The refer ence range was not u sed to interpret th is result as normal/abnormal . NRBC x10^3 (test code See_Comment [Auto mated = 0401782730) message] The s ystem which generated this result transmitted reference range : 10*3/?L. The reference range was not used to interpret this result as normal/abnormal . GRAN MAT (NEUT) % 63.3 % (test code = 770-8) IMM GRAN % (test code 0.30 % = 2039025315) LYMPH % (test code = 18.7 % 736-9) MONO % (test code = 14.5 % 5905-5) EOS % (test code = 2.6 % 713-8) BASO % (test code = 0.6 % 706-2) GRAN MAT x10^3(ANC) 1.96 10*3/uL 1.88-7.09 (test code = 8560489419) IMM GRAN x10^3 (test 0.00-0.06 code = 9657175605) LYMPH x10^3 (test code 0.58 10*3/uL 1.32-3.29 L = 731-0) MONO x10^3 (test code 0.45 10*3/uL 0.33-0.92 = 742-7) EOS x10^3 (test code = 0.08 10*3/uL 0.03-0.39 711-2) BASO x10^3 (test code 0.01-0.07 = 704-7) BASO STIPPLING (test Present A code = 703-9) PLT ESTIMATE (test Decreased Normal A code = 9317-9) Lab Interpretation Abnormal (test code = 19247-0) [facility] [id number] 03:26:02 Test Item Value Reference Interpretation Comments Range TROPONIN I (test 0.003 ng/mL See_Comment [Automated code = 4122131832) message] The system which generated this result [...] biotin. Lab Interpretation Normal (test code = 55725-9) [facility]AL QFW-ZZX9056-30-06 03:23:01 Test Item Value Reference Range Interpretation Comments NT-proBNP (test code 36 pg/mL See_Comment [Autom ated = 3440809603) message] The system which generated this result transmitted reference range : <=125. The reference range was not used to interpret this result as normal/abnormal . SNOW (test code = SNOW) Biotin has been reported to cause a negative bias, interpret results relative to patient's use of biotin. Lab Interpretation Normal (test code = 99310-4) [facility] (NA, K, CL, CO2, GLUCOSE, BUN, CREATININE, CA)2022-04-16 03:14:42 Test Item Value Reference Range Interpretation Comments NA (test code = 138 mmol/L 135-145 0052236928) K (test code = 4.8 mmol/L 3.5-5.0 0644210089) CL (test code = 110 mmol/L 98-108 H 5417009901) CO2 TOTAL (test code = 22 mmol/L 23-31 L 6097043189) AGAP (test code = 2-16 5122651730) BUN (test code = 15 mg/dL 7-23 0142686237) GLUCOSE (test code = 90 mg/dL 70-110 2000254473) CREATININE (test code = 0.49 mg/dL 0.50-1.04 L 5785235699) CALCIUM (test code = 7.9 mg/dL 8.6-10.6 L 2013083975) eGFR (test code = mL/min/1.73m2 9364924175) SNOW (test code = SNOW) Association of [...] tests). Lab Interpretation Abnormal (test code = 16819-2) [facility] (ALB, T.PRO, BILI T, BU/BC, ALT, AST, ALK PHOS)2022-04-16 03:14:22 Test Item Value Reference Range Interpretation Comments TOTAL BILI (test code = 4265780903) 1.5 mg/dL 0.1-1.1 H BILI UNCON (test code = 2915195900) 1.2 mg/dL 0.1-1.1 H BILI CONJ (test code = 6351440761) 0.0 mg/dL 0.0-0.3 T PROTEIN (test code = 9766347105) 6.5 g/dL 6.3-8.2 ALBUMIN (test code = 4479906572) 3.4 g/dL 3.5-5.0 L ALK PHOS (test code = 0952769199) 162 U/L 34-122 H ALTv (test code = 1742-6) 50 U/L 5-35 H AST(SGOT) (test code = 9352678150) 64 U/L 13-40 H Lab Interpretation (test code = Abnormal 98347-2) [facility] WITH [id number] 02:57:34 Test Item Value Reference Range Interpretation [...] (test code = 52.2 fL 39.0-49.9 H 90483-0) RDW-CV (test code = 16.7 % 12.0-15.5 H 788-0) PLT (test code = See_Comment L [Automated 777-3) message] The sy stem which generated this result transmitted reference range : 166 - 358 10*3/ ?L. The reference r davi was not used to interpret this result as normal/abnormal . MPV (test code = 11.4 fL 9.5-12.9 38413-0) NRBC/100 WBC (test See_Comment [Automat ed code = 7645221941) message] The system which generated this result transmitted reference range : 0.0 - 10.0 /100 WBCs. The refer ence range was not u sed to interpret th is result as normal/abnormal . NRBC x10^3 (test code See_Comment [Auto mated = 3469014426) message] The s ystem which generated this result transmitted reference range : 10*3/?L. The reference range was not used to interpret this result as normal/abnormal . GRAN MAT (NEUT) % 62.2 % (test code = 770-8) IMM GRAN % (test code 0.80 % = 7923228860) LYMPH % (test code = 20.2 % 736-9) MONO % (test code = 14.7 % 5905-5) EOS % (test code = 1.7 % 713-8) BASO % (test code = 0.4 % 706-2) GRAN MAT x10^3(ANC) 1.48 10*3/uL 1.88-7.09 L (test code = 1550045700) IMM GRAN x10^3 (test 0.00-0.06 code = 6981918136) LYMPH x10^3 (test code 0.48 10*3/uL 1.32-3.29 L = 731-0) MONO x10^3 (test code 0.35 10*3/uL 0.33-0.92 = 742-7) EOS x10^3 (test code = 0.04 10*3/uL 0.03-0.39 711-2) BASO x10^3 (test code 0.01-0.07 = 704-7) PLT ESTIMATE (test Decreased Normal A code = 9317-9) Lab Interpretation Abnormal (test code = 12528-8) [facility] CenterProthrombin Time / [id number] 02:35:10 Test Item Value Reference Range Interpretation [...] tions. Lab Interpretation (test Abnormal code = 56357-3) [facility] CenterCOMP. METABOLIC PANEL (55387)2022-04-10 02:34:50 Test Item Value Reference Range Interpretation Comments NA (test code = 140 mmol/L 135-145 0668063417) K (test code = 4.4 mmol/L 3.5-5.0 8873989865) CL (test code = 111 mmol/L 98-108 H 6988254259) CO2 TOTAL (test code = 23 mmol/L 23-31 1869626390) AGAP (test code = 2-16 2374974659) BUN (test code = 13 mg/dL 7-23 7530856879) GLUCOSE (test code = 86 mg/dL 70-110 5146557964) CREATININE (test code = 0.62 mg/dL 0.50-1.04 8206274626) TOTAL BILI (test code = 1.6 mg/dL 0.1-1.1 H 2752757460) CALCIUM (test code = 7.6 mg/dL 8.6-10.6 L 6563263130) T PROTEIN (test code = 6.3 g/dL 6.3-8.2 4566699702) ALBUMIN (test code = 3.3 g/dL 3.5-5.0 L 3130461552) ALK PHOS (test code = 160 U/L 34-122 H 9392355801) ALTv (test code = 46 U/L 5-35 H 1742-6) AST(SGOT) (test code = 58 U/L 13-40 H 4081561245) eGFR (test code = mL/min/1.73m2 1021200616) SNOW (test code = SNOW) Association of [...] tests). Lab Interpretation Abnormal (test code = 79836-3) [facility]50 Test Item Value Reference Range Interpretation Comments MAGNESIUM (test code = 2856054403) 1.8 mg/dL 1.7-2.4 Lab Interpretation (test code = Normal 49599-7) [facility] [id number] 02:34:29 Test Item Value Reference Range Interpretation Comments CK (test code = 8480843392) 105 U/L 33-194 Lab Interpretation (test code = Normal 45167-5) [facility], CPZYZT4128-71-38 02:33:54 Test Item Value Reference Range Interpretation Comments AMMONIA (test code = 6709544013) 90 umol/L 9-33 H Lab Interpretation (test code = Abnormal 81635-0) [facility] lwbijng3377-18-84 09:39:00 Test Item Value Reference Range Interpretation Comments POC glucose (test code = 107 mg/dL 65-99 H Ope rator Name: Aris 62412-9) SaraDevice ID: [id number] able: [facility] Notified assistant manager of operations Interpretation (test Abnormal code = 73370-2) [facility] [id number] 09:39:00 Test Item Value Reference Range Interpretation Comments POC glucose (test code = 107 mg/dL 65-99 H Ope rator Name: Aris 26356-8) SaraDevice ID: [id number] able: [facility] Notified assistant manager of operations Interpretation (test Abnormal code = 67001-9) [facility] cissbtw0825-74-30 09:39:00 Test Item Value Reference Range Interpretation Comments POC glucose (test code = 107 mg/dL 65-99 H Ope rator Name: Aris 86881-3) SaraDevice ID: [id number] able: [facility] Notified assistant manager of operations Interpretation (test Abnormal code = 68427-1) [facility] qeiozyn7700-92-64 09:39:00 Test Item Value Reference Range Interpretation Comments POC glucose (test code = 107 mg/dL 65-99 H Ope rator Name: Aris 81681-5) SaraDevice ID: [id number] able: TM Notified assistant manager of operations Interpretation (test Abnormal code = 18720-9) [place] [address] btxs5283-73-24 02:51:50 Test Item Value Reference Range Interpretation Comments Ventricular rate (test code = 253) Atrial rate (test code = 255) MT interval (test code = 266) QRSD interval (test code = 260) QT interval (test code = 264) QTC interval (test code = 265) P axis 1 (test code = 267) QRS axis 1 (test code = 268) T wave axis (test code = 270) EKG impression (test Normal sinus code = 273) rhythm-Right bundle branch block-Abnormal ECG-- [address]2022-11-18 02:51:50 Test Item Value Reference Range Interpretation Comments Ventricular rate (test code = 253) Atrial rate (test code = 255) MT interval (test code = 266) QRSD interval (test code = 260) QT interval (test code = 264) QTC interval (test code = 265) P axis 1 (test code = 267) QRS axis 1 (test code = 268) T wave axis (test code = 270) EKG impression (test Normal sinus code = 273) rhythm-Right bundle branch block-Abnormal ECG-- [address]2022-11-18 02:51:50 Test Item Value Reference Range Interpretation Comments Ventricular rate (test code = 253) Atrial rate (test code = 255) MT interval (test code = 266) QRSD interval (test code = 260) QT interval (test code = 264) QTC interval (test code = 265) P axis 1 (test code = 267) QRS axis 1 (test code = 268) T wave axis (test code = 270) EKG impression (test Normal sinus code = 273) rhythm-Right bundle branch block-Abnormal ECG-- [facility] 12 icwz5971-91-88 02:51:50 Test Item Value Reference Range Interpretation Comments Ventricular rate (test code = 253) Atrial rate (test code = 255) MT interval (test code = 266) QRSD interval (test code = 260) QT interval (test code = 264) QTC interval (test code = 265) P axis 1 (test code = 267) QRS axis 1 (test code = 268) T wave axis (test code = 270) EKG impression (test Normal sinus code = 273) rhythm-Right bundle branch block-Abnormal ECG-- [facility] ED Preliminary Interpretation - Not an Fmpwd1009-52-01 20:37:40 Test Item Value Reference Range Interpretation Comments SNOW (test code = SNOW) Stevo Hoskins DO 02/28/2022 12:23 [facility] [place] Interpretation - Not an OrderPerformed by: Stevo Hoskins DOAuthorized by: Stevo Hoskins DO ECG reviewed by ED Physician in the absence of a work from home: yes Interpretation: Interpretation: abnormal Rate: ECG rate: 70 ECG rate assessment: normal Rhythm: Rhythm: sinus rhythm Ectopy: Ectopy: none QRS: QRS axis: Normal QRS intervals: WideConduction: Conduction: abnormal Abnormal conduction: complete RBBB ST segments: ST segments: NormalT waves: T waves: non-specific Lab Interpretation Abnormal (test code = 92525-7) [facility] ED Preliminary Interpretation - Not an [id number] 20:37:40 Test Item Value Reference Range Interpretation Comments SNOW (test code = SNOW) Stevo Hoskins DO 02/28/2022 12:23 [facility] [place] Interpretation - Not an OrderPerformed by: Stevo Hoskins DOAuthorized by: Stevo Hoskins DO ECG reviewed by ED Physician in the absence of a work from home: yes Interpretation: Interpretation: abnormal Rate: ECG rate: 70 ECG rate assessment: normal Rhythm: Rhythm: sinus rhythm Ectopy: Ectopy: none QRS: QRS axis: Normal QRS intervals: WideConduction: Conduction: abnormal Abnormal conduction: complete RBBB ST segments: ST segments: NormalT waves: T waves: non-specific Lab Interpretation Abnormal (test code = 71847-0) [facility] Preliminary Interpretation - Not an [id number] 20:37:40 Test Item Value Reference Range Interpretation Comments SNOW (test code = SNOW) Stevo Hoskins DO 02/28/2022 12:23 [facility] [place] Interpretation - Not an OrderPerformed by: Stevo Hoskins, DOAuthorized by: Stevo Hoskins DO ECG reviewed by ED Physician in the absence of a work from home: yes Interpretation: Interpretation: abnormal Rate: ECG rate: 70 ECG rate assessment: normal Rhythm: Rhythm: sinus rhythm Ectopy: Ectopy: none QRS: QRS axis: Normal QRS intervals: WideConduction: Conduction: abnormal Abnormal conduction: complete RBBB ST segments: ST segments: NormalT waves: T waves: non-specific Lab Interpretation Abnormal (test code = 93801-5) [facility] Preliminary Interpretation - Not an [id number] 20:37:40 Test Item Value Reference Range Interpretation Comments SNOW (test code = SNOW) Stevo Hoskins DO 02/28/2022 12:23 [facility] [place] Interpretation - Not an OrderPerformed by: Stevo Hoskins, DOAuthorized by: Stevo Hoskins DO ECG reviewed by ED Physician in the absence of a work from home: yes Interpretation: Interpretation: abnormal Rate: ECG rate: 70 ECG rate assessment: normal Rhythm: Rhythm: sinus rhythm Ectopy: Ectopy: none QRS: QRS axis: Normal QRS intervals: WideConduction: Conduction: abnormal Abnormal conduction: complete RBBB ST segments: ST segments: NormalT waves: T waves: non-specific Lab Interpretation Abnormal (test code = 51699-7) [facility] [Presence] in Respiratory specimen by HELENA with probe ilqkyozsu0110-34-79 18:28:31 Test Item Value Reference Range Interpretation Comments SARS-CoV-2 (COVID-19) RNA Not detected [Presence] in Respiratory specimen by HELENA with probe detection (test code = 04128-1) 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 employed in a Unknown healthcare setting (test code = 00423-8) Whether the patient has symptoms Unknown related to condition of interest (test code = 75726-3) Whether the patient was Unknown hospitalized for condition of interest (test code = 33903-2) Whether the patient was admitted Unknown to intensive care unit (ICU) for condition of interest (test code = 71554-1) Whether patient resides in a Unknown congregate care setting (test code = 77937-5) status (test code = Unknown 00783-0) Date and time of symptom onset Unknown (test code = 64799-3) [facility] [place] [id number] 21:35:39 Test Item Value Reference Range Interpretation [...] (test code = 53.7 fL 39.0-49.9 H 74967-5) RDW-CV (test code = 17.0 % 12.0-15.5 H 788-0) PLT (test code = See_Comment L [Automated 777-3) message] The sy stem which generated this result transmitted reference range : 166 - 358 10*3/ ?L. The reference r davi was not used to interpret this result as normal/abnormal . MPV (test code = 9.8 fL 9.5-12.9 75699-6) IPF % (test code = 2.2 % 1.3-7.7 Platelet count 3893644605) measured by fluorescence method. NRBC/100 WBC (test See_Comment [Automat ed code = 8034057701) message] The system which generated this result transmitted reference range : 0.0 - 10.0 /100 WBCs. The refer ence range was not u sed to interpret th is result as normal/abnormal . NRBC x10^3 (test code See_Comment [Auto mated = 6019055323) message] The s ystem which generated this result transmitted reference range : 10*3/?L. The reference range was not used to interpret this result as normal/abnormal . SEG % (test code = 60 % 33-76 25168-0) BAND % (test code = 3 % 0-1 H 95191-2) LYMPH % (test code = 23 % 14-54 62634-9) MONO % (test code = 12 % 0-4 H 03631-2) EOS % (test code = 2 % 0-3 54483-7) ANC (test code = 1.38 10*3/uL 1.88-7.09 L 753-4) PLT ESTIMATE (test Decreased Normal A code = 9317-9) Lab Interpretation Abnormal (test code = 82234-8) [facility] (60596)2022-02-15 20:44:39 Test Item Value Reference Range Interpretation Comments NA (test code = 137 mmol/L 135-145 2724920171) K (test code = 3.8 mmol/L 3.5-5.0 0601687856) CL (test code = 107 mmol/L 98-108 4999898468) CO2 TOTAL (test code = 25 mmol/L 23-31 2461302686) AGAP (test code = 2-16 2126486203) BUN (test code = 11 mg/dL 7-23 0880289022) GLUCOSE (test code = 103 mg/dL 70-110 6511857978) CREATININE (test code = 0.53 mg/dL 0.50-1.04 1887287795) TOTAL BILI (test code = 1.9 mg/dL 0.1-1.1 H 4285756778) CALCIUM (test code = 8.2 mg/dL 8.6-10.6 L 0227005784) T PROTEIN (test code = 6.4 g/dL 6.3-8.2 9093613923) ALBUMIN (test code = 3.4 g/dL 3.5-5.0 L 5685890623) ALK PHOS (test code = 146 U/L 34-122 H 3659141009) ALTv (test code = 40 U/L 5-35 H 1742-6) AST(SGOT) (test code = 52 U/L 13-40 H 3367934624) eGFR (test code = mL/min/1.73m2 5947826484) SNOW (test code = SNOW) Association of [...] tests). Lab Interpretation Abnormal (test code = 02992-1) [facility] 20:44:19 Test Item Value Reference Range Interpretation Comments LIPASE (test code = 9489642097) 298 U/L 0-220 H Lab Interpretation (test code = Abnormal 24199-4) [facility] Center[facility] rvfljqs5539-42-40 03:08:00 Test Item Value Reference Range Interpretation Comments Urine culture (test SEE COMMENT Bacteriu bartolo screen code = 2565492) negative. [facility] czpihvw8135-70-58 03:08:00 Test Item Value Reference Range Interpretation Comments Urine culture (test SEE COMMENT Bacteriu bartolo screen code = 9952832) negative. [facility] mkttdnb0611-02-11 03:08:00 Test Item Value Reference Range Interpretation Comments Urine culture (test SEE COMMENT Bacteriu bartolo screen code = 2694530) negative. [facility] ntuwsql2282-16-00 03:08:00 Test Item Value Reference Range Interpretation Comments Urine culture (test SEE COMMENT Bacteriu bartolo screen code = 7049775) negative. [facility] RNA [Presence] in Respiratory specimen by HELENA with probe lxnwawklc8431-21-12 02:16:27 Test Item Value Reference Range Interpretation Comments SARS-CoV-2 (COVID-19) RNA Not detected [Presence] in Respiratory specimen by HELENA with probe detection (test code = 51548-3) 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 employed in a Unknown healthcare setting (test code = 05895-1) Whether the patient has symptoms Unknown related to condition of interest (test code = 63047-4) Whether the patient was Unknown hospitalized for condition of interest (test code = 68055-2) Whether the patient was admitted Unknown to intensive care unit (ICU) for condition of interest (test code = 04169-9) Whether patient resides in a Unknown congregate care setting (test code = 67671-4) status (test code = Unknown 61800-3) Date and time of symptom onset Unknown (test code = 51951-1) [facility] fllhltc2903-69-15 22:22:49 Test Item Value Reference Range Interpretation Comments Case number (test code = [id number]) Surgical pathology See link below for report (test code = PDF Lab Report 2255) Result status (test code This is Final Report = [id number]) for [address] pathology stsiwem0931-89-91 22:22:49 Test Item Value Reference Range Interpretation Comments Case number (test code = [id number]) Surgical pathology See link below for report (test code = PDF Lab Report 2255) Result status (test code This is Final Report = 5732592) for [address] pathology fjedezm4802-25-12 22:22:49 Test Item Value Reference Range Interpretation Comments Case number (test code = [id number]) Surgical pathology See link below for report (test code = PDF Lab Report 2255) Result status (test code This is Final Report = [id number]) for [address] pathology mhyyuoi8924-32-06 22:22:49 Test Item Value Reference Range Interpretation Comments Case number (test code = [id number]) Surgical pathology See link below for report (test code = PDF Lab Report 2255) Result status (test code This is Final Report = [id number]) for [address] pathology aechrlt1270-32-87 22:22:49 Test Item Value Reference Range Interpretation Comments Case number (test code = [id number]) Surgical pathology See link below for report (test code = PDF Lab Report 2255) Result status (test code This is Final Report = [id number]) for [address] pathology kyibian4648-07-32 22:22:49 Test Item Value Reference Range Interpretation Comments Case number (test code = [id number]) Surgical pathology See link below for report (test code = PDF Lab Report 2255) Result status (test code This is Final Report = 8062613) for [address] pathology gvldvnw0150-52-58 22:22:49 Test Item Value Reference Range Interpretation Comments Case number (test code = [id number]) Surgical pathology See link below for report (test code = PDF Lab Report 2255) Result status (test code This is Final Report = [id number]) for [id number] [facility] azlufhw7230-04-44 17:57:00 Test Item Value Reference Range Interpretation Comments POC glucose (test code = 121 mg/dL 65-99 H Ope rator Name: 88586-7) Rustam Elaine vice ID: [id number] able: [facility] Notified assistant manager of operations Interpretation (test Abnormal code = 00319-2) [facility] lwruxwz7342-14-63 17:57:00 Test Item Value Reference Range Interpretation Comments POC glucose (test code = 121 mg/dL 65-99 H Ope rator Name: 75785-6) Rustam Elaine vice ID: [id number] able: [facility] Notified assistant manager of operations Interpretation (test Abnormal code = 48415-0) [facility] zubutlp9747-12-87 11:53:00 Test Item Value Reference Range Interpretation Comments Urine culture (test SEE COMMENT Bacteriu bartolo screen code = 9244101) negative. [facility] zqfaqcb6952-66-12 11:53:00 Test Item Value Reference Range Interpretation Comments Urine culture (test SEE COMMENT Bacteriu bartolo screen code = 0388245) negative. [facility] RNA [Presence] in Respiratory specimen by HELENA with probe ieetifizt5906-81-74 08:30:51 Test Item Value Reference Range Interpretation Comments SARS-CoV-2 (COVID-19) RNA Not detected [Presence] in Respiratory specimen by HELENA with probe detection (test code = 86185-0) 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 employed in a Unknown healthcare setting (test code = 43023-1) Whether the patient has symptoms Unknown related to condition of interest (test code = 19055-4) Whether the patient was Unknown hospitalized for condition of interest (test code = 08308-6) Whether the patient was admitted Unknown to intensive care unit (ICU) for condition of interest (test code = 02074-1) Whether patient resides in a Unknown congregate care setting (test code = 69431-1) status (test code = Unknown 96523-9) Date and time of symptom onset Unknown (test code = 04397-0) [address]2022-09-03 12:19:45 Test Item Value Reference Range Interpretation Comments Ventricular rate (test code = 253) Atrial rate (test code = 255) MT interval (test code = 266) QRSD interval [...] of 26-NOV-2021 19:29,-No significant change was found- [address]2022-09-03 12:19:45 Test Item Value Reference Range Interpretation Comments Ventricular rate (test code = 253) Atrial rate (test code = 255) MT interval (test code = 266) QRSD interval [...] of 26-NOV-2021 19:29,-No significant change was found- [address]2022-09-03 12:19:45 Test Item Value Reference Range Interpretation Comments Ventricular rate (test code = 253) Atrial rate (test code = 255) MT interval (test code = 266) QRSD interval [...] of 26-NOV-2021 19:29,-No significant change was found- [facility] ED Preliminary Interpretation - Not an Shevq1441-20-08 05:33:45 Test Item Value Reference Range Interpretation Comments SNOW (test code = SNOW) Stevo Hoskins DO 12/13/2021 12:08 [facility] Preliminary Interpretation - Not an OrderPerformed by: Stevo Hoskins DOAuthorized by: Stevo Hoskins DO ECG reviewed by ED Physician in the absence of a work from home: yes Previous ECG: Previous ECG: UnavailableInterpretat ion: Interpretation: abnormal Rate: ECG rate: 63 ECG rate assessment: normal Rhythm: Rhythm: sinus rhythm Ectopy: Ectopy: none QRS: QRS axis: Normal QRS intervals: NormalConduction: Conduction: abnormal Abnormal conduction: complete RBBB ST segments: ST segments: NormalT waves: T waves: non-specific Lab Interpretation Abnormal (test code = 20659-8) [facility] ED Preliminary Interpretation - Not an Raywa3868-38-14 05:33:45 Test Item Value Reference Range Interpretation Comments SNOW (test code = SNOW) Stevo Hoskins DO 12/13/2021 12:08 [facility] [place] Preliminary Interpretation - Not an OrderPerformed by: Stevo Hoskins DOAuthorized by: Stevo Hoskins DO ECG reviewed by ED Physician in the absence of a work from home: yes Previous ECG: Previous ECG: UnavailableInterpretat ion: Interpretation: abnormal Rate: ECG rate: 63 ECG rate assessment: normal Rhythm: Rhythm: sinus rhythm Ectopy: Ectopy: none QRS: QRS axis: Normal QRS intervals: NormalConduction: Conduction: abnormal Abnormal conduction: complete RBBB ST segments: ST segments: NormalT waves: T waves: non-specific Lab Interpretation Abnormal (test code = 05326-9) [facility] ED Preliminary Interpretation - Not an Uvkdv3595-97-36 05:33:45 Test Item Value Reference Range Interpretation Comments SNOW (test code = SNOW) Stevo Hoskins DO 12/13/2021 12:08 [facility] [place] Preliminary Interpretation - Not an OrderPerformed by: Stevo Hoskins DOAuthorized by: Stevo Hoskins, ECG reviewed by ED Physician in the absence of a work from home: yes Previous ECG: Previous ECG: UnavailableInterpretat ion: Interpretation: abnormal Rate: ECG rate: 63 ECG rate assessment: normal Rhythm: Rhythm: sinus rhythm Ectopy: Ectopy: none QRS: QRS axis: Normal QRS intervals: NormalConduction: Conduction: abnormal Abnormal conduction: complete RBBB ST segments: ST segments: NormalT waves: T waves: non-specific Lab Interpretation Abnormal (test code = 68797-9) [facility] onofdvn5605[facility]-35 05:22:00 Test Item Value Reference Range Interpretation Comments Urine culture (test SEE COMMENT Bacteriu bartolo screen code = 4450118) negative. [facility] JqdmbmrtIGVF-IgN-3 (COVID-19) RNA [Presence] in Respiratory specimen by HELENA with probe dauhmkulh9057-54-69 02:31:14 Test Item Value Reference Range Interpretation Comments SARS-CoV-2 (COVID-19) RNA Not detected [Presence] in Respiratory specimen by HELENA with probe detection (test code = 10997-6) 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 employed in a Unknown healthcare setting (test code = 13354-9) Whether the patient has symptoms Unknown related to condition of interest (test code = 22330-1) Whether the patient was Unknown hospitalized for condition of interest (test code = 30507-2) Whether the patient was admitted Unknown to intensive care unit (ICU) for condition of interest (test code = 73594-1) Whether patient resides in a Unknown congregate care setting (test code = 32237-2) status (test code = Unknown 39946-4) Date and time of symptom onset Unknown (test code = 91952-8) [facility] 12 runt0195-77-88 13:24:41 Test Item Value Reference Range Interpretation Comments Ventricular rate (test code = 253) Atrial rate (test code = 255) MT interval (test code = 266) QRSD interval (test code = 260) QT interval (test code = 264) QTC interval (test code = 265) P axis 1 (test code = 267) QRS axis 1 (test code = 268) T wave axis (test code = 270) EKG impression (test code Normal sinus = 273) rhythm-Right bundle branch block- [facility] - Not an Xsnqh1318-59-06 00:04:12 Test Item Value Reference Range Interpretation Comments SNOW (test code = SNOW) Jefferson Skelton MD 12/04/2021 11:12 [facility] [place] Interpretation - Not an OrderPerformed by: Jefferson Skelton MDAuthorized by: Jefferson Skelton MD ECG reviewed by ED Physician in the absence of a work from home: yes Interpretation: Interpretation: abnormal Rate: ECG rate: 70 ECG rate assessment: normal Rhythm: Rhythm: sinus rhythm QRS: QRS axis: Normal QRS intervals: WideConduction: Conduction: abnormal Abnormal conduction: complete RBBB ST segments: ST segments: NormalOther findings: Other findings: prolonged qTc interval Lab Interpretation Abnormal (test code = 11811-9) [facility] xzctqbp7054-24-57 02:26:00 Test Item Value Reference Range Interpretation Comments Urine culture (test SEE COMMENT Bacteriu bartolo screen code = 2055732) negative. [facility] ([facility]) RNA [Presence] in Respiratory specimen by HELENA with probe ntymqsxhf4195-86-54 00:33:54 Test Item Value Reference Range Interpretation Comments SARS-CoV-2 (COVID-19) RNA Not detected [Presence] in Respiratory specimen by HELENA with probe detection (test code = 93910-5) 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 employed in a Unknown healthcare setting (test code = 07847-9) Whether the patient has symptoms Unknown related to condition of interest (test code = 79945-6) Whether the patient was Unknown hospitalized for condition of interest (test code = 52631-1) Whether the patient was admitted Unknown to intensive care unit (ICU) for condition of interest (test code = 57930-9) Whether patient resides in a Unknown congregate care setting (test code = 10666-0) status (test code = Unknown 81305-2) Date and time of symptom onset Unknown (test code = 21322-0) [facility] OZGGQCKVVIBCZ6359-56-03 09:34:08 Test Item Value Reference Range Interpretation Comments MAGNESIUM (test code = 7818079594) 1.4 mg/dL 1.7-2.4 L Lab Interpretation (test code = Abnormal 11293-7) [facility] (67475)2020-10-03 09:33:48 Test Item Value Reference Range Interpretation Comments NA (test code = 136 mmol/L 135-145 5490361049) K (test code = 3.3 mmol/L 3.5-5.0 L 0148335842) CL (test code = 100 mmol/L 98-108 6736967619) CO2 TOTAL (test code = 33 mmol/L 23-31 H 4404198251) AGAP (test code = 2-16 9862031268) BUN (test code = 3 mg/dL 7-23 L 2414168902) GLUCOSE (test code = 95 mg/dL 70-110 2006509269) CREATININE (test code = 0.47 mg/dL 0.50-1.04 L 2963525947) TOTAL BILI (test code = 1.5 mg/dL 0.1-1.1 H 3021038783) CALCIUM (test code = 8.1 mg/dL 8.6-10.6 L 3093588190) T PROTEIN (test code = 5.9 g/dL 6.3-8.2 L 1648077503) ALBUMIN (test code = 2.9 g/dL 3.5-5.0 L 1356503713) ALK PHOS (test code = 115 U/L 34-122 6281535545) ALTv (test code = 24 U/L 5-35 1742-6) AST(SGOT) (test code = 35 U/L 13-40 9945199717) eGFR (test code = mL/min/1.73m2 0286821007) SNOW (test code = SNOW) Association of [...] tests). Lab Interpretation Abnormal (test code = 48653-0) [facility]28 Test Item Value Reference Range Interpretation Comments PHOSPHORUS (test code = 6201194736) 2.8 mg/dL 2.5-5.0 Lab Interpretation (test code = Normal 61750-8) [facility] WITH [id number] 09:31:46 Test Item Value Reference Range Interpretation [...] (test code = 53.8 fL 39.0-49.9 H 13152-9) RDW-CV (test code = 19.9 % 12.0-15.5 H 788-0) PLT (test code = See_Comment L [Automated 777-3) message] The sy stem which generated this result transmitted reference range : 166 - 358 10*3/ ?L. The reference r davi was not used to interpret this result as normal/abnormal . MPV (test code = 10.9 fL 9.5-12.9 72006-7) IPF % (test code = 3.6 % 1.3-7.7 Platelet count 7058852625) measured by fluorescence method. NRBC/100 WBC (test See_Comment [Automat ed code = 5390716513) message] The system which generated this result transmitted reference range : 0.0 - 10.0 /100 WBCs. The refer ence range was not u sed to interpret th is result as normal/abnormal . NRBC x10^3 (test code See_Comment [Auto mated = 0059405099) message] The s ystem which generated this result transmitted reference range : 10*3/?L. The reference range was not used to interpret this result as normal/abnormal . GRAN MAT (NEUT) % 68.1 % (test code = 770-8) IMM GRAN % (test code 1.10 % = 7681999723) LYMPH % (test code = 15.5 % 736-9) MONO % (test code = 11.3 % 5905-5) EOS % (test code = 3.4 % 713-8) BASO % (test code = 0.6 % 706-2) GRAN MAT x10^3(ANC) 2.42 10*3/uL 1.88-7.09 (test code = 8569317892) IMM GRAN x10^3 (test 0.04 10*3/uL 0.00-0.06 code = 3600713085) LYMPH x10^3 (test code 0.55 10*3/uL 1.32-3.29 L = 731-0) MONO x10^3 (test code 0.40 10*3/uL 0.33-0.92 = 742-7) EOS x10^3 (test code = 0.12 10*3/uL 0.03-0.39 711-2) BASO x10^3 (test code <0.03 0.01-0.07 = 704-7) Lab Interpretation Abnormal (test code = 64275-5) [facility] WITH [id number] 10:47:09 Test Item Value Reference Range Interpretation [...] (test code = 52.2 fL 39.0-49.9 H 65210-3) RDW-CV (test code = 18.6 % 12.0-15.5 H 788-0) PLT (test code = See_Comment L [Automated 777-3) message] The sy stem which generated this result transmitted reference range : 166 - 358 10*3/ ?L. The reference r davi was not used to interpret this result as normal/abnormal . MPV (test code = 10.1 fL 9.5-12.9 92504-8) IPF % (test code = 3.2 % 1.3-7.7 Platelet count 9091172676) measured by fluorescence method. NRBC/100 WBC (test See_Comment [Automat ed code = 5191920671) message] The system which generated this result transmitted reference range : 0.0 - 10.0 /100 WBCs. The refer ence range was not u sed to interpret th is result as normal/abnormal . NRBC x10^3 (test code See_Comment [Auto mated = 8658700546) message] The s ystem which generated this result transmitted reference range : 10*3/?L. The reference range was not used to interpret this result as normal/abnormal . GRAN MAT (NEUT) % 65.1 % (test code = 770-8) IMM GRAN % (test code 1.20 % = 5148844057) LYMPH % (test code = 16.9 % 736-9) MONO % (test code = 11.5 % 5905-5) EOS % (test code = 4.5 % 713-8) BASO % (test code = 0.8 % 706-2) GRAN MAT x10^3(ANC) 1.58 10*3/uL 1.88-7.09 L (test code = 8962021376) IMM GRAN x10^3 (test 0.03 10*3/uL 0.00-0.06 code = 1698782777) LYMPH x10^3 (test code 0.41 10*3/uL 1.32-3.29 L = 731-0) MONO x10^3 (test code 0.28 10*3/uL 0.33-0.92 L = 742-7) EOS x10^3 (test code = 0.11 10*3/uL 0.03-0.39 711-2) BASO x10^3 (test code <0.03 0.01-0.07 = 704-7) POLYCHROMASIA (test 2+ See_Comment [Automa josemanuel code = 57919-4) message] The system which generated this result transmitted reference range : 2+. The referen ce range was not u sed to interpret th is result as normal/abnormal . LG GRAN LYMPHS (test Rare Rare code = 5030643204) Lab Interpretation Abnormal (test code = 51970-4) [facility]. METABOLIC PANEL ([id number])2020-10-02 10:19:28 Test Item Value Reference Range Interpretation Comments NA (test code = 135 mmol/L 135-145 4238925722) K (test code = 3.4 mmol/L 3.5-5.0 L 0192197038) CL (test code = 104 mmol/L 98-108 8251626722) CO2 TOTAL (test code = 27 mmol/L 23-31 7793801266) AGAP (test code = 2-16 2384449360) BUN (test code = 4 mg/dL 7-23 L 6272487949) GLUCOSE (test code = 97 mg/dL 70-110 0810058873) CREATININE (test code = 0.45 mg/dL 0.50-1.04 L 4353137700) TOTAL BILI (test code = 1.7 mg/dL 0.1-1.1 H 8545726058) CALCIUM (test code = 8.2 mg/dL 8.6-10.6 L 1332788840) T PROTEIN (test code = 6.0 g/dL 6.3-8.2 L 1248614180) ALBUMIN (test code = 3.1 g/dL 3.5-5.0 L 1503095470) ALK PHOS (test code = 120 U/L 34-122 8905271472) ALTv (test code = 26 U/L 5-35 1742-6) AST(SGOT) (test code = 39 U/L 13-40 9060642712) eGFR (test code = mL/min/1.73m2 1626973077) SNOW (test code = SNOW) Association of [...] tests). Lab Interpretation Abnormal (test code = 33402-9) [facility] [id number] 02:50:27COVID DMT InterpretationInterpretation/Recommendations: Molecular NAAT Tests for [...] medical record. [facility] FwaodfqCLHF-JsT-3 NAAT (no units) ? ? Date ? Value ? 02/13/2020 ? Not Detected ? SARS-CoV-2 Rapid ID NOW (no units) ? ? Date ? Value ? 09/29/2020 ? Not Detected ? ? ? 08/10/2019 ? Not Detected ? [facility] WITH [id number] 10:31:29 Test Item Value Reference Range Interpretation [...] (test code = 52.3 fL 39.0-49.9 H 29374-6) RDW-CV (test code = 18.4 % 12.0-15.5 H 788-0) PLT (test code = See_Comment LL [Automated 777-3) message] The sy stem which generated this result transmitted reference range : 166 - 358 10*3/ ?L. The reference r davi was not used to interpret this result as normal/abnormal . MPV (test code = 11.2 fL 9.5-12.9 18149-2) IPF % (test code = 3.9 % 1.3-7.7 Platelet count 1164473823) measured by fluorescence method. NRBC/100 WBC (test See_Comment [Automat ed code = 3816820890) message] The system which generated this result transmitted reference range : 0.0 - 10.0 /100 WBCs. The refer ence range was not u sed to interpret th is result as normal/abnormal . NRBC x10^3 (test code <0.01 See_Comment [Auto mated = 0625773592) message] The s ystem which generated this result transmitted reference range : 10*3/?L. The reference range was not used to interpret this result as normal/abnormal . GRAN MAT (NEUT) % 57.5 % (test code = 770-8) IMM GRAN % (test code 0.50 % = 8607791114) LYMPH % (test code = 20.7 % 736-9) MONO % (test code = 13.3 % 5905-5) EOS % (test code = 6.9 % 713-8) BASO % (test code = 1.1 % 706-2) GRAN MAT x10^3(ANC) 1.08 10*3/uL 1.88-7.09 L (test code = 2433504163) IMM GRAN x10^3 (test <0.03 0.00-0.06 code = 3866356905) LYMPH x10^3 (test code 0.39 10*3/uL 1.32-3.29 L = 731-0) MONO x10^3 (test code 0.25 10*3/uL 0.33-0.92 L = 742-7) EOS x10^3 (test code = 0.13 10*3/uL 0.03-0.39 711-2) BASO x10^3 (test code <0.03 0.01-0.07 = 704-7) BASO STIPPLING (test Present A code = 703-9) ELLIPTO/OVAL (test 2+ See_Comment A [Automat ed code = 77878-8) message] The system which generated this result transmitted reference range : (none). The reference range was not used to interpret this result as normal/abnormal . POLYCHROMASIA (test 2+ See_Comment [Automa josemanuel code = 25502-4) message] The system which generated this result transmitted reference range : 2+. The referen ce range was not u sed to interpret th is result as normal/abnormal . Lab Interpretation Abnormal (test code = 08048-9) [facility]. METABOLIC PANEL (96956)2020-10-01 09:19:22 Test Item Value Reference Range Interpretation Comments NA (test code = 135 mmol/L 135-145 1854371613) K (test code = 4.0 mmol/L 3.5-5.0 3972412638) CL (test code = 107 mmol/L 98-108 2199971604) CO2 TOTAL (test code = 24 mmol/L 23-31 5040967922) AGAP (test code = 2-16 9854272775) BUN (test code = 7 mg/dL 7-23 8600319380) GLUCOSE (test code = 93 mg/dL 70-110 1924205711) CREATININE (test code = 0.47 mg/dL 0.50-1.04 L 3099065600) TOTAL BILI (test code = 1.6 mg/dL 0.1-1.1 H 3290937141) CALCIUM (test code = 8.1 mg/dL 8.6-10.6 L 6312993578) T PROTEIN (test code = 5.8 g/dL 6.3-8.2 L 0749852590) ALBUMIN (test code = 2.8 g/dL 3.5-5.0 L 4671944974) ALK PHOS (test code = 106 U/L 34-122 0912580721) ALTv (test code = 23 U/L 5-35 1742-6) AST(SGOT) (test code = 39 U/L 13-40 7020697697) eGFR (test code = mL/min/1.73m2 3706268255) SNOW (test code = SNOW) Association of [...] tests). Lab Interpretation Abnormal (test code = 23835-8) [facility] CenterTRSIOBHAN [id number] 20:47:45 Test Item Value Reference Range Interpretation Comments TROPONIN I (test 0.002 ng/mL See_Comment [Automated code = 5596832228) message] The system which generated this result [...] ? Lab Interpretation Normal (test code = 67081-4) [facility] Center[facility] [id number] 19:11:57 Test Item Value Reference Range Interpretation Comments URINE CULTURE (test code <10,000 CFU/mL = 630-4) Gram-Positive Cocci [facility] BY 18:17:03 Test Item Value Reference Range Interpretation Comments Campylobacter (jejuni, Negative Negative, coli and upsaliensis) Indeterminate, (test code = 35383-9) See comment Plesiomonas shigelloides Negative Negative, (test code = 78124-0) Indeterminate, See comment Salmonella (test code = Negative Negative, 20483-2) Indeterminate, See comment Yersinia enterocolitica Negative Negative, (test code = 00355-2) Indeterminate, See comment Vibrio (test code = Negative Negative, 50505-8) Indeterminate, See comment Vibrio cholerae (test Negative Negative, code = 02652-4) Indeterminate, See comment Enteroaggregative E. Negative Negative, coli (EAEC) (test code = Indeterminate, 70947-5) See comment Enteropathogenic E. coli Negative Negative, N/A, (EPEC) (test code = Indeterminate, 12403-4) See comment Enterotoxigenic E. coli Negative Negative, (ETEC) (test code = Indeterminate, 28391-0) See comment Shiga toxin-Producing E. Negative Negative, coli (STEC) (test code = Indeterminate, 88696-7) See comment Shigella/Enteroinvasive Negative Negative, E. coli (EIEC) (test Indeterminate, code = 59291-3) See comment Cryptosporidium (test Negative Negative, code = 38896-9) Indeterminate, See comment Cyclospora cayetanensis Negative Negative, (test code = 02289-1) Indeterminate, See comment Entamoeba histolytica Negative Negative, (test code = 47004-4) Indeterminate, See comment Giardia lamblia (test Negative Negative, code = 31096-0) Indeterminate, See comment Adenovirus F 40/41 (test Negative Negative, code = 21341-0) Indeterminate, See comment Astrovirus (test code = Negative Negative, 87864-4) Indeterminate, See comment Norovirus GI/GII (test Negative Negative, code = 88176-1) Indeterminate, See comment Rotavirus A (test code = Negative Negative, 90752-7) Indeterminate, See comment Sapovirus (test code = Negative Negative, 26573-1) Indeterminate, See comment Clostridioides Positive Negative, A (Clostridium) difficile Indeterminate, Toxin A/B (test code = See comment 12301-8) SNOW (test code = SNOW) Based on GreenDot TransArray GI Panel package insert, the GreenDot TransArray GI Panel contains a single multiplexed assay [...] the binary toxin gene (CDT), and the vtscjp-nbyd-apiu deletion at nucleotide 117 within the gene [...] organism. Lab Interpretation (test Abnormal code = 74187-8) [facility] [id number] 14:26:32 Test Item Value Reference Range Interpretation Comments Occult (guaiac) Blood (test code = Negative Negative 2335-8) Lab Interpretation (test code = Normal 42633-4) [facility] WITH [id number] 13:54:12 Test Item Value Reference Range Interpretation [...] (test code = 52.9 fL 39.0-49.9 H 65189-0) RDW-CV (test code = 18.3 % 12.0-15.5 H 788-0) PLT (test code = See_Comment LL [Automated 777-3) message] The sy stem which generated this result transmitted reference range : 166 - 358 10*3/ ?L. The reference r davi was not used to interpret this result as normal/abnormal . MPV (test code = 10.8 fL 9.5-12.9 65190-1) IPF % (test code = 4.2 % 1.3-7.7 Platelet count 6837579668) measured by fluorescence method. NRBC/100 WBC (test See_Comment [Automat ed code = 5093310567) message] The system which generated this result transmitted reference range : 0.0 - 10.0 /100 WBCs. The refer ence range was not u sed to interpret th is result as normal/abnormal . NRBC x10^3 (test code <0.01 See_Comment [Auto mated = 7902144235) message] The s ystem which generated this result transmitted reference range : 10*3/?L. The reference range was not used to interpret this result as normal/abnormal . GRAN MAT (NEUT) % 60.0 % (test code = 770-8) IMM GRAN % (test code 0.40 % = 0360717517) LYMPH % (test code = 20.6 % 736-9) MONO % (test code = 11.3 % 5905-5) EOS % (test code = 6.9 % 713-8) BASO % (test code = 0.8 % 706-2) GRAN MAT x10^3(ANC) 1.49 10*3/uL 1.88-7.09 L (test code = 7224412657) IMM GRAN x10^3 (test <0.03 0.00-0.06 code = 1343335973) LYMPH x10^3 (test code 0.51 10*3/uL 1.32-3.29 L = 731-0) MONO x10^3 (test code 0.28 10*3/uL 0.33-0.92 L = 742-7) EOS x10^3 (test code = 0.17 10*3/uL 0.03-0.39 711-2) BASO x10^3 (test code <0.03 0.01-0.07 = 704-7) Lab Interpretation Abnormal (test code = 93858-8) [facility]. METABOLIC PANEL (10906)2020-09-30 12:47:49 Test Item Value Reference Range Interpretation Comments NA (test code = 135 mmol/L 135-145 9688858570) K (test code = 4.0 mmol/L 3.5-5.0 0338940921) CL (test code = 108 mmol/L 98-108 8697818237) CO2 TOTAL (test code = 23 mmol/L 23-31 9495960307) AGAP (test code = 2-16 9592111565) BUN (test code = 8 mg/dL 7-23 9762545098) GLUCOSE (test code = 109 mg/dL 70-110 1587803243) CREATININE (test code = 0.52 mg/dL 0.50-1.04 9939947901) TOTAL BILI (test code = 1.7 mg/dL 0.1-1.1 H 8439012062) CALCIUM (test code = 8.0 mg/dL 8.6-10.6 L 0039853180) T PROTEIN (test code = 5.7 g/dL 6.3-8.2 L 9007148438) ALBUMIN (test code = 2.7 g/dL 3.5-5.0 L 2615477527) ALK PHOS (test code = 106 U/L 34-122 9190134473) ALTv (test code = 22 U/L 5-35 1742-6) AST(SGOT) (test code = 34 U/L 13-40 8328094590) eGFR (test code = mL/min/1.73m2 9458570081) SNOW (test code = SNOW) Association of [...] tests). Lab Interpretation Abnormal (test code = 83142-3) [facility] CenterFECAL [id number] 11:49:39 Test Item Value Reference Range Interpretation Comments Fecal Leukocytes (test code = Positive Negative A 1193058574) Lab Interpretation (test code = Abnormal 90445-2) [facility] CenterN-TERMINAL [id number] 10:20:53 Test Item Value Reference Range Interpretation Comments NT-proBNP (test code 68 pg/mL See_Comment [Autom ated = 2081552344) message] The system which generated this result transmitted reference range : <=125. The reference range was not used to interpret this result as normal/abnormal . SNOW (test code = SNOW) Biotin has been reported to cause a negative bias, interpret results relative to patient's use of biotin. Lab Interpretation Normal (test code = 43036-8) [facility] CenterCLOSTRIDIUM DIFFICILE [id number] 05:18:16 Test Item Value Reference Range Interpretation Comments Clostridioides (Clostridium) Negative Negative difficile (test code = 19448-5) Lab Interpretation (test code = Normal 71708-7) [facility] CenterPO[facility] GLUCOSE (AUTOMATED)2020-09-30 00:54:42 Test Item Value Reference Range Interpretation Comments POCT GLU (test code = 3976216751) 111 mg/dL 70-110 H Lab Interpretation (test code = Abnormal 69981-7) [facility] CenterBASIC METABOLIC PANEL (NA, K, CL, CO2, GLUCOSE, BUN, CREATININE, CA)2020-09-29 22:08:22 Test Item Value Reference Range Interpretation Comments NA (test code = 135 mmol/L 135-145 2623043714) K (test code = 3.7 mmol/L 3.5-5.0 6866365901) CL (test code = 108 mmol/L 98-108 9106526942) CO2 TOTAL (test code = 22 mmol/L 23-31 L 1520458364) AGAP (test code = 2-16 9002036543) BUN (test code = 9 mg/dL 7-23 9454466520) GLUCOSE (test code = 104 mg/dL 70-110 1537328768) CREATININE (test code = 0.51 mg/dL 0.50-1.04 4615998105) CALCIUM (test code = 7.9 mg/dL 8.6-10.6 L 1599135841) eGFR (test code = mL/min/1.73m2 3985745052) SNOW (test code = SNOW) Association of [...] tests). Lab Interpretation Abnormal (test code = 53209-9) [facility] CenterHEMOGLOBIN2021-06-21 21:41:20 Test Item Value Reference Range Interpretation Comments HGB (test code = 718-7) 7.4 g/dL 11.6-15.0 L Lab Interpretation (test code = Abnormal 89029-0) [facility] CenterVITAMIN B12, [id number] 20:39:52 Test Item Value Reference Range Interpretation Comments VIT B12 (test code = 212 pg/mL 240-930 L 8450454729) SNOW (test code = SNOW) Biotin has been reported to cause a positive bias, interpret results relative to patient's use of biotin. 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.[facility] CenterC-REACTIVE [id number] 17:01:56 Test Item Value Reference Range Interpretation Comments CRP (test code = 8944647382) 4.7 mg/dL <0.8 H Lab Interpretation (test code = Abnormal 55358-3) [facility] CenterVITAMIN D, [id number] 16:43:29 Test Item Value Reference Range Interpretation Comments VIT D 25OH (test code = <13 25-80 L 80171-7) SNOW (test code = SNOW) Deficiency: <20 ng/mLInsufficiency: 20-24 ng/mLOptimal: 25-80 ng/mL Lab Interpretation (test Abnormal code = 52450-5) [facility] CenterPROCALCITONIN2021-06-21 16:15:30 Test Item Value Reference Range Interpretation Comments Procalcitonin (test 0.08 ng/mL <0.07 H code = 5848004454) SNOW (test code = SNOW) INTERPRETATION OF [...] biotics/default.asp Lab Interpretation Abnormal (test code = 13836-4) [facility] CenterOSMOLALITY [id number] 15:35:14 Test Item Value Reference Range Interpretation Comments OSMO U (test code = See_Comment [Automa josemanuel message] 0633257509) The system whic h generated this result transmitted ref erence range: 50-1,100 mOsm/kg. The re ference range was not u sed to interpret this result as normal/abnor mal. Lab Interpretation (test Normal code = 97512-8) [facility] CenterTROPONIN [id number] 14:04:56 Test Item Value Reference Range Interpretation Comments TROPONIN I (test 0.002 ng/mL See_Comment [Automated code = 7106216890) message] The system which generated this result transmitted reference range : <=0.034. The reference range was not used to interpret this result as normal/abnormal . SNWO (test code = Equal or Less than [...] ? Lab Interpretation Normal (test code = 02319-7) [facility] CenterCT ABDOMEN PELVIS W [id number] 13:37:17 1. ?Findings concerning for infectious or [...] agree with theabove report.[facility] WITH [id number] 11:41:25 Test Item Value Reference Range Interpretation Comments WBC (test code = See_Comment L [Automated 5090-2) message] The system which generated this result [...] (test code = 52.4 fL 39.0-49.9 H 92457-8) RDW-CV (test code = 18.2 % 12.0-15.5 H 788-0) PLT (test code = See_Comment LL [Automated 777-3) message] The system which generated this result transmit josemanuel reference range : 166 - 358 10*3/ ?L. The reference range was not u sed to interpret th is result as normal/abnormal . MPV (test code = Not Measure d 83284-2) IPF % (test code = 4.3 % 1.3-7.7 Platelet count 0565333811) measured by fluorescence method. NRBC/100 WBC (test See_Comment [Automat ed code = 9492565137) message] The system which generated this result transmit josemanuel reference range : 0.0 - 10.0 /100 WBCs. The reference range was not used to interpret this result as normal/abnormal . NRBC x10^3 (test code <0.01 See_Comment [Auto mated = 1460173387) message] The system which generated this result transmit josemanuel reference range : 10*3/?L. The reference range was not used to interpret this result as normal/abnormal . GRAN MAT (NEUT) % 74.4 % (test code = 770-8) IMM GRAN % (test code 0.50 % = 7143138580) LYMPH % (test code = 10.3 % 736-9) MONO % (test code = 12.3 % 5905-5) EOS % (test code = 2.0 % 713-8) BASO % (test code = 0.5 % 706-2) GRAN MAT x10^3(ANC) 3.02 10*3/uL 1.88-7.09 (test code = 7434812999) IMM GRAN x10^3 (test <0.03 0.00-0.06 code = 3854359090) LYMPH x10^3 (test 0.42 10*3/uL 1.32-3.29 L code = 731-0) MONO x10^3 (test code 0.50 10*3/uL 0.33-0.92 = 742-7) EOS x10^3 (test code 0.08 10*3/uL 0.03-0.39 = 711-2) BASO x10^3 (test code <0.03 0.01-0.07 = 704-7) PLT ESTIMATE (test Decreased Normal A code = 9317-9) SNOW (test code = SNOW) CBC smear reduced platelet Lab Interpretation Abnormal (test code = 79743-6) [facility] CenterN-TERMINAL [id number] 11:07:24 Test Item Value Reference Range Interpretation Comments NT-proBNP (test code 79 pg/mL See_Comment [Autom ated = 7592029017) message] The system which generated this result transmitted reference range : <=125. The reference range was not used to interpret this result as normal/abnormal . SNOW (test code = SNOW) Biotin has been reported to cause a negative bias, interpret results relative to patient's use of biotin. Lab Interpretation Normal (test code = 25372-9) [facility] CenterIRON [id number] 11:04:41 Test Item Value Reference Range Interpretation Comments IRON (test code = 2602509385) 31 ug/dL 50-160 L TIBC (test code = 5850111549) 295 ug/dL 250-410 % FE SAT (test code = 6633239946) 11 % 20-50 L Lab Interpretation (test code = Abnormal 78196-6) [facility] CenterPROTEIN CREAT RATIO URINE [id number] 10:57:19 Test Item Value Reference Range Interpretation Comments T. PROT U (test code = 2888-6) 9 mg/dL CREAT U (test code = 2850682498) 187.5 mg/dL Protein/Creatinine Ratio Urine 0.0-2.0 (test code = 8620586030) [facility] CenterSODIUM, URINE [id number] 10:53:21 Test Item Value Reference Range Interpretation Comments NA URINE (test code = 9450320314) 30 mmol/L [facility] CenterSEDIMENTATION [id number] 10:33:04 Test Item Value Reference Range Interpretation Comments ESR (test code = See_Comment [Automated message] 2675702128) The system Xier[employer] h generated this result transmitted ref erence range: 0 - 20 m m/HR. The reference r davi was not used to interpret this result as normal/abnor mal. Lab Interpretation (test Normal code = 21898-9) [facility] CenterPROTHROMBIN TIME / [id number] 09:43:39 Test Item Value Reference Range Interpretation Comments PROTIME PATIENT (test See_Comment H [Auto mated message] code = 5964-2) The system [employer] generated this result transmitted ref erence range: 12.0 - 1 4.7 Seconds. The reference range was not used to int erpret this result as normal/abnormal . INR (test code = 6301-6) Nor mal INR <1.1; Warfarin Therap eutic range 2.0 to 3. 0 or 2.5 to 3.5, dep ending upon the indica tions. Lab Interpretation (test Abnormal code = 50815-4) [facility] CenterLactic Acid Whole [id number] 08:42:38 Test Item Value Reference Range Interpretation Comments LACTIC ACID (test code = 1.47 mmol/L 0.50-2.20 7390982821) Lab Interpretation (test code = Normal 75782-7) [facility] CenterFERRITIN [id number] 07:31:09 Test Item Value Reference Range Interpretation Comments FERRITIN (test code = 12.2 ng/mL 11.0-264.0 6097744258) SNOW (test code = SNOW) Biotin has been reported to cause a negative bias, interpret results relative to patient's use of biotin. Lab Interpretation (test Normal code = 71651-1) [facility] Center[facility]IM[facility]ATING [id number] 07:27:08 Test Item Value Reference Range Interpretation Comments TSH (test code = See_Comment [Automated message] 5499975447) The system [employer] generated this result transmitted ref erence range: 0.45 - 4 .70 mIU/L. The refe rence range was not u sed to interpret this result as normal/abnor mal. Lab Interpretation (test Normal code = 23539-6) [facility] CenterGLYCOSYLATED HEMOGLOBIN (A1C)2020-09-29 07:05:40 Test Item Value Reference Range Interpretation Comments HGB A1C (test code = 5.0 % 4.0-5.7 4548-4) SNOW (test code = SNOW) Reference RangesNormal: <5.7%Prediabetes: 5.7 - 6.4%Diabetes: > 6.5% Lab Interpretation (test Normal code = 52419-0) [facility] CenterURIC [id number] 07:05:35 Test Item Value Reference Range Interpretation Comments URIC ACID (test code = 5657063246) 4.2 mg/dL 2.9-6.0 Lab Interpretation (test code = Normal 54401-8) [facility] CenterCREATINE [id number] 07:05:30 Test Item Value Reference Range Interpretation Comments CK (test code = 2634428668) 192 U/L 33-194 Lab Interpretation (test code = Normal 98320-9) [facility] CenterN-TERMINAL [id number] 07:05:30 Test Item Value Reference Range Interpretation Comments NT-proBNP (test code 94 pg/mL See_Comment [Autom ated = 8219570769) message] The system which generated this result transmitted reference range : <=125. The reference range was not used to interpret this result as normal/abnormal . SNOW (test code = SNOW) Biotin has been reported to cause a negative bias, interpret results relative to patient's use of biotin. Lab Interpretation Normal (test code = 47781-9) [facility] CenterMAGNESIUM2021-06-21 07:04:24 Test Item Value Reference Range Interpretation Comments MAGNESIUM (test code = 9076240467) 1.8 mg/dL 1.7-2.4 Lab Interpretation (test code = Normal 75243-3) [facility]PHOSPHORUS2021-06-21 07:03:39 Test Item Value Reference Range Interpretation Comments PHOSPHORUS (test code = 1712344140) 2.2 mg/dL 2.5-5.0 L Lab Interpretation (test code = Abnormal 19632-7) [facility] CenterLIPID PANEL (24962)(TOTAL CHOLESTEROL, TRIGLYCERIDES, HDL)2020-09-29 06:56:06 Test Item Value Reference Range Interpretation Comments CHOL (test code = 132 mg/dL 120-200 5285335775) HDL (test code = 41 mg/dL >50 L 5039614163) HDLC RATIO (test code = See_Comment [Au tomated message] 5802794699) The system [employer] generated this result transmit josemanuel reference range : <=4.5. The refe rence range was not u sed to interpret th is result as normal/abnormal . TRIG (test code = 73 mg/dL 30-170 8645475371) LDL CHOL (test code = 76 mg/dL See_Comment [Auto mated message] 95526-1) The system [employer] generated this result transmit josemanuel reference range : <=160. The refe rence range was not u sed to interpret th is result as normal/abnormal . VLDL (test code = 15 mg/dL 5-60 3549969655) Lab Interpretation (test Abnormal code = 19020-5) [facility] CenterCOVID-19 (ID NOW RAPID TESTING)2020-09-29 06:24:26 Test Item Value Reference Range Interpretation Comments SARS-CoV-2 Rapid ID NOW Not Detected Not Detected (test code = 37555-5) SNOW (test code = SNOW) ID NOW COVID-19 Assay is an isothermal nucleic acid amplification test intended for the qualitative detection of nucleic acid from SARS-CoV-2 viral RNA in nasopharyngeal (STUNT DOUBLE) specimens. It is used under Emergency Use [...] indicated. Lab Interpretation Normal (test code = 30437-2) [facility] CenterURINALYSIS2021-06-21 04:43:31 Test Item Value Reference Range Interpretation Comments APPEARANCE (test code = Clear Clear 9161987428) COLOR (test code = Rosanne Yellow A 0609058561) PH (test code = 4.8-8.0 0632024474) SP GRAVITY (test code = 1.003-1.030 7674443623) GLU U QUAL (test code = Normal Normal 8823969050) BLOOD (test code = Negative Negative 2657110849) KETONES (test code = Negative Negative 1572868658) PROTEIN (test code = 30 mg/dL Negative A 2887-8) UROBILIN (test code = Normal Normal 7061231490) BILIRUBIN (test code = Negative Negative 3124717986) NITRITE (test code = Negative Negative 9127305693) LEUK RANULFO (test code = 25/uL Negative A 1236296784) RBC/HPF (test code = See_Comment [Autom ated message] 6427152070) The system [employer] generated this result transmitted ref erence range: 0 - 3 HP F. The reference range was not used to int erpret this result as normal/abnormal . WBC/HPF (test code = See_Comment [Autom ated message] 0876265318) The system [employer] generated this result transmitted ref erence range: 0 - 5 HP F. The reference range was not used to int erpret this result as normal/abnormal . BACTERIA (test code = Few Negative A 2468918249) MUCOUS (test code = Moderate Negative LPF A 9367185385) SQ EPITH (test code = HPF 4097722962) Lab Interpretation (test Abnormal code = 55516-0) [facility] CenterCBC WITH [id number] 04:39:35 Test Item Value Reference Range Interpretation Comments WBC (test code = See_Comment [Automated 5590-2) message] The system which generated this result transmit josemanuel reference range : 4.30 - 11.10 10*3/?L. The reference range was not used to interpret this result as normal/abnormal . RBC (test code = See_Comment L [Automated 409-8) message] The system which generated this result [...] (test code = 51.3 fL 39.0-49.9 H 73413-5) RDW-CV (test code = 18.1 % 12.0-15.5 H 788-0) PLT (test code = See_Comment L [Automated 777-3) message] The system which generated this result transmit josemanuel reference range : 166 - 358 10*3/ ?L. The reference range was not u sed to interpret th is result as normal/abnormal . MPV (test code = 11.1 fL 9.5-12.9 86264-1) IPF % (test code = 3.7 % 1.3-7.7 Platelet count 6394422353) measured by fluorescence method. NRBC/100 WBC (test See_Comment [Automat ed code = 6348320874) message] The system which generated this result transmit josemanuel reference range : 0.0 - 10.0 /100 WBCs. The reference range was not used to interpret this result as normal/abnormal . NRBC x10^3 (test code <0.01 See_Comment [Auto mated = 0783747989) message] The system which generated this result transmit josemanuel reference range : 10*3/?L. The reference range was not used to interpret this result as normal/abnormal . GRAN MAT (NEUT) % 76.4 % (test code = 770-8) IMM GRAN % (test code 0.80 % = 5466700500) LYMPH % (test code = 9.4 % 736-9) MONO % (test code = 11.3 % 5905-5) EOS % (test code = 1.5 % 713-8) BASO % (test code = 0.6 % 706-2) GRAN MAT x10^3(ANC) 4.07 10*3/uL 1.88-7.09 (test code = 0080786033) IMM GRAN x10^3 (test 0.04 10*3/uL 0.00-0.06 code = 1026117108) LYMPH x10^3 (test 0.50 10*3/uL 1.32-3.29 L code = 731-0) MONO x10^3 (test code 0.60 10*3/uL 0.33-0.92 = 742-7) EOS x10^3 (test code 0.08 10*3/uL 0.03-0.39 = 711-2) BASO x10^3 (test code 0.03 10*3/uL 0.01-0.07 = 704-7) PLT ESTIMATE (test Decreased Normal A code = 9317-9) SNOW (test code = SNOW) Juan slide adgrees to decreased Platelet Lab Interpretation Abnormal (test code = 45228-6) [facility] CenterCOMP. METABOLIC PANEL (21752)2020-09-29 04:25:42 Test Item Value Reference Range Interpretation Comments NA (test code = 134 mmol/L 135-145 L 5348110222) K (test code = 3.2 mmol/L 3.5-5.0 L 3038902323) CL (test code = 104 mmol/L 98-108 0434102303) CO2 TOTAL (test code = 24 mmol/L 23-31 3936711135) AGAP (test code = 2-16 5625261718) BUN (test code = 8 mg/dL 7-23 7717279730) GLUCOSE (test code = 105 mg/dL 70-110 6834487169) CREATININE (test code = 0.51 mg/dL 0.50-1.04 0741637007) TOTAL BILI (test code = 2.5 mg/dL 0.1-1.1 H 3529259761) CALCIUM (test code = 8.2 mg/dL 8.6-10.6 L 2279695071) T PROTEIN (test code = 6.3 g/dL 6.3-8.2 1606401729) ALBUMIN (test code = 3.1 g/dL 3.5-5.0 L 7089739867) ALK PHOS (test code = 136 U/L 34-122 H 5420373235) ALTv (test code = 24 U/L 5-35 1742-6) AST(SGOT) (test code = 30 U/L 13-40 6157236419) eGFR (test code = mL/min/1.73m2 1528641027) SNOW (test code = SNOW) Association of [...] tests). Lab Interpretation Abnormal (test code = 77603-5) [facility] CenterLIPASE2021-[facility] 04:25:42 Test Item Value Reference Range Interpretation Comments LIPASE (test code = 7294712897) 102 U/L 0-220 Lab Interpretation (test code = Normal 89254-0) [facility] CenterSARS-CoV-2 (COVID-19) RNA [Presence] in Respiratory specimen by HELENA with probe [id number] 00:49:19 Test Item Value Reference Range Interpretation Comments SARS-CoV-2 (COVID-19) RNA Not detected Not-Detected [Presence] in Respiratory specimen by HELENA with probe detection (test code = 28721-8) 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 employed in a healthcare setting (test code = 61117-7) Whether the patient has symptoms related to condition of interest (test code = 32292-1) Patient was hospitalized because of this condition (test code = 46388-7) Whether the patient was admitted to intensive care unit (ICU) for condition of interest (test code = 08296-0) Whether patient resides in a congregate care setting (test code = 76299-2) [facility]-CoV-2 (COVID-19) RNA [Presence] in Respiratory specimen by HELENA with probe [id number] 02:47:43 Test Item Value Reference Range Interpretation Comments SARS-CoV-2 (COVID-19) RNA Not detected Not-Detected [Presence] in Respiratory specimen by HELENA with probe detection (test code = 09597-1) [facility]-CoV-2 (COVID-19) RNA [Presence] in Respiratory specimen by HELENA with probe [id number] 16:32:37 Test Item Value Reference Range Interpretation Comments SARS-CoV-2 (COVID-19) RNA Not detected Not-Detected [Presence] in Respiratory specimen by HELENA with probe detection (test code = 41193-5) [facility]-CoV-2 (COVID-19) RNA [Presence] in Respiratory specimen by HELENA with probe pdjidaqvn1782-04-25 05:29:57 Test Item Value Reference Range Interpretation Comments SARS-CoV-2 (COVID-19) RNA Not detected Not-Detected [Presence] in Respiratory specimen by HELENA with probe detection (test code = 39092-0) [facility] ABDOMEN PELVIS W [id number] 19:27:49 1. ?No evidence of small bowel [...] agree with the abovereport.[facility] WITH [id number] 11:56:00 Test Item Value Reference Range Interpretation Comments WBC (test code = See_Comment L [Automated 5090-2) message] The sy stem which generated this result transmitted reference range : 4.30 - 11.10 10*3/?L. The reference range was not used to interpret this result as normal/abnormal . RBC (test code = See_Comment L [Automated 219-8) message] The sy stem which generated this [...] (test code = 58.0 fL 39-49.9 H 32192-2) RDW-CV (test code = 16.6 % 12-15.5 H 788-0) PLT (test code = See_Comment LL [Automated 777-3) message] The sy stem which generated this result transmitted reference range : 166 - 358 10*3/ ?L. The reference r davi was not used to interpret this result as normal/abnormal . MPV (test code = 11.0 fL 9.5-12.9 83106-7) IPF % (test code = 5.5 % 1.3-7.7 Platelet count 3096894754) measured by fluorescence method. NRBC/100 WBC (test See_Comment [Automat ed code = 0759361841) message] The system which generated this result transmitted reference range : 0.0 - 10.0 /100 WBCs. The refer ence range was not u sed to interpret th is result as normal/abnormal . NRBC x10^3 (test code <0.01 See_Comment [Auto mated = 5497968693) message] The s ystem which generated this result transmitted reference range : 10*3/?L. The reference range was not used to interpret this result as normal/abnormal . GRAN MAT (NEUT) % 57.6 % (test code = 770-8) IMM GRAN % (test code 0.00 % = 9026252760) LYMPH % (test code = 27.1 % 736-9) MONO % (test code = 11.8 % 5905-5) EOS % (test code = 3.1 % 713-8) BASO % (test code = 0.4 % 706-2) GRAN MAT x10^3(ANC) 1.47 10*3/uL 1.88-7.09 L (test code = 7915243886) IMM GRAN x10^3 (test <0.03 0-0.06 code = 7457199756) LYMPH x10^3 (test code 0.69 10*3/uL 1.32-3.29 L = 731-0) MONO x10^3 (test code 0.30 10*3/uL 0.33-0.92 L = 742-7) EOS x10^3 (test code = 0.08 10*3/uL 0.03-0.39 711-2) BASO x10^3 (test code <0.03 0.01-0.07 = 704-7) Lab Interpretation Abnormal (test code = 19212-2) [facility]. METABOLIC PANEL (70626)2019-08-11 10:42:00 Test Item Value Reference Range Interpretation Comments NA (test code = 138 mmol/L 135-145 6843928260) K (test code = 3.8 mmol/L 3.5-5 8884714213) CL (test code = 108 mmol/L 98-108 8536586284) CO2 TOTAL (test code = 24 mmol/L 23-31 0062276446) AGAP (test code = 2-16 8708160861) BUN (test code = 10 mg/dL 7-23 0257557268) GLUCOSE (test code = 108 mg/dL 70-110 8158764266) CREATININE (test code = 0.43 mg/dL 0.5-1.04 L 7497189300) TOTAL BILI (test code = 2.5 mg/dL 0.1-1.1 H 1793349326) CALCIUM (test code = 8.4 mg/dL 8.6-10.6 L 6760841217) T PROTEIN (test code = 6.1 g/dL 6.3-8.2 L 9614333275) ALBUMIN (test code = 3.1 g/dL 3.5-5 L 6705677872) ALK PHOS (test code = 102 U/L 34-122 2675694517) ALTv (test code = 52 U/L 5-35 H 1742-6) AST(SGOT) (test code = 63 U/L 13-40 H 7003053871) eGFR Calculation mL/min/1.73m2 (Non-) (test code = 8025977592) eGFR Calculation mL/min/1.73m2 () (test code = 3598215585) SNOW (test code = SNOW) Association of [...] tests). Lab Interpretation Abnormal (test code = 33282-9) [facility] CenterXR SMALL BOWEL [id number] 02:08:11 1. ?No bowel obstruction. No fluoroscopic images or fluoroscopic time. RL 6200 HISTORY: ?Abdominal pain COMPARISON: ?None FINDINGS: There is a nonobstructive bowel gas pattern. Contrast is seen throughoutthe entire small bowel and colon. No dilated loops of bowel demonstrated. [facility], Radiant Results Inft User - 08/10/2019 9:09 PM CDTHISTORY: Abdominal painCOMPARISON: NoneFINDINGS:There is a nonobstructive bowel gas pattern. Contrast is seen throughoutthe entire small bowel and colon. No dilated loops of bowel demonstrated.IMPRESSION1. No bowel obstruction.No fluoroscopic images or fluoroscopic time.RL 6200 [facility]hamSEDIMENTATION [id number] 16:19:00 Test Item Value Reference Range Interpretation Comments ESR (test code = See_Comment [Automated message] 3515928570) The system [employer] generated this result transmitted ref erence range: 0 - 20 m m/HR. The reference r davi was not used to interpret this result as normal/abnor mal. Lab Interpretation (test Normal code = 03382-3) [facility] CenterAbdominal 1 View - To confirm [...] agree with the abovereport.[facility] WITH [id number] 13:48:00 Test Item Value Reference Range Interpretation [...] (test code = 58.4 fL 39-49.9 H 63816-2) RDW-CV (test code = 16.7 % 12-15.5 H 788-0) PLT (test code = See_Comment LL [Automated 777-3) message] The system which generated this result transmit josemanuel reference range : 166 - 358 10*3/ ?L. The reference range was not u sed to interpret th is result as normal/abnormal . MPV (test code = 10.5 fL 9.5-12.9 31162-9) IPF % (test code = 3.0 % 1.3-7.7 Platelet count 4707827334) measured by fluorescence method. NRBC/100 WBC (test See_Comment [Automat ed code = 4565322799) message] The system which generated this result transmit josemanuel reference range : 0.0 - 10.0 /100 WBCs. The reference range was not used to interpret this result as normal/abnormal . NRBC x10^3 (test code <0.01 See_Comment [Auto mated = 3116182339) message] The system which generated this result transmit josemanuel reference range : 10*3/?L. The reference range was not used to interpret this result as normal/abnormal . GRAN MAT (NEUT) % 57.1 % (test code = 770-8) IMM GRAN % (test code 0.40 % = 3415945335) LYMPH % (test code = 28.1 % 736-9) MONO % (test code = 10.4 % 5905-5) EOS % (test code = 3.6 % 713-8) BASO % (test code = 0.4 % 706-2) GRAN MAT x10^3(ANC) 1.42 10*3/uL 1.88-7.09 L (test code = 6618990619) IMM GRAN x10^3 (test <0.03 0-0.06 code = 6237517106) LYMPH x10^3 (test 0.70 10*3/uL 1.32-3.29 L code = 731-0) MONO x10^3 (test code 0.26 10*3/uL 0.33-0.92 L = 742-7) EOS x10^3 (test code 0.09 10*3/uL 0.03-0.39 = 711-2) BASO x10^3 (test code <0.03 0.01-0.07 = 704-7) PLT ESTIMATE (test Critically Normal AA code = 9317-9) Decreased Lab Interpretation Abnormal (test code = 74936-2) [facility] CenterGLYCOSYLATED HEMOGLOBIN (A1C)2019-08-10 13:13:00 Test Item [...] Indicated Lab Interpretation Normal (test code = 59025-8) [facility] CenterTHYROID STIMULATING [id number] 13:05:00 Test Item Value Reference Range Interpretation Comments TSH (test code = See_Comment [Automated message] 7329033226) The system [employer] generated this result transmitted ref erence range: 0.45 - 4 .70 mIU/L. The refe rence range was not u sed to interpret this result as normal/abnor mal. Lab Interpretation (test Normal code = 93926-1) [facility] CenterPREGNANCY TEST, [id number] 13:04:00 Test Item Value Reference Range Interpretation Comments PREG SERUM (test code Negative = 3229015460) SNOW (test code = SNOW) Less than 10 IU/L. ?If low titer or ectopic is suspected, resubmit specimen in 48-72 hours. [facility] CenterLIPID PANEL (55572)(TOTAL CHOLESTEROL, TRIGLYCERIDES, HDL)2019-08-10 12:36:00 Test Item Value Reference Range Interpretation Comments CHOL (test code = 158 mg/dL 120-200 2471665513) HDL (test code = 47 mg/dL >50 L 3674971352) HDLC RATIO (test code = See_Comment [Au tomated message] 3178427931) The system [employer] generated this result transmit josemanuel reference range : <=4.5. The refe rence range was not u sed to interpret th is result as normal/abnormal . TRIG (test code = 51 mg/dL 30-170 5889381050) LDL CHOL (test code = 101 mg/dL See_Comment [Auto mated message] 79540-4) The system [employer] generated this result transmit josemanuel reference range : <=160. The refe rence range was not u sed to interpret th is result as normal/abnormal . VLDL (test code = 10 mg/dL 5-60 1437551715) Lab Interpretation (test Abnormal code = 63505-1) [facility] CenterCOMP. METABOLIC PANEL (67620)2019-08-10 12:35:00 Test Item Value Reference Range Interpretation Comments NA (test code = 139 mmol/L 135-145 5720317193) K (test code = 3.9 mmol/L 3.5-5 2014590784) CL (test code = 109 mmol/L 98-108 H 0237116539) CO2 TOTAL (test code = 25 mmol/L 23-31 7007601180) AGAP (test code = 2-16 0164404309) BUN (test code = 15 mg/dL 7-23 2715448410) GLUCOSE (test code = 218 mg/dL 70-110 H 7156310704) CREATININE (test code = 0.40 mg/dL 0.5-1.04 L 0108940629) TOTAL BILI (test code = 2.0 mg/dL 0.1-1.1 H 7672743304) CALCIUM (test code = 8.5 mg/dL 8.6-10.6 L 3944588711) T PROTEIN (test code = 6.2 g/dL 6.3-8.2 L 2229009890) ALBUMIN (test code = 3.1 g/dL 3.5-5 L 6019706699) ALK PHOS (test code = 99 U/L 34-122 3550624799) ALTv (test code = 42 U/L 5-35 H 1742-6) AST(SGOT) (test code = 49 U/L 13-40 H 3351155394) eGFR Calculation mL/min/1.73m2 (Non-) (test code = 6061334936) eGFR Calculation mL/min/1.73m2 () (test code = 7763420504) SNOW (test code = SNOW) Association of [...] tests). Lab Interpretation Abnormal (test code = 82691-9) [facility] CenterMAGNESIUM2020-05-01 12:35:00 Test Item Value Reference Range Interpretation Comments MAGNESIUM (test code = 0472650938) 1.6 mg/dL 1.7-2.4 L Lab Interpretation (test code = Abnormal 93576-8) [facility] CenterPHOSPHORUS2020-05-01 12:35:00 Test Item Value Reference Range Interpretation Comments PHOSPHORUS (test code = 9613353995) 3.6 mg/dL 2.5-5 Lab Interpretation (test code = Normal 46955-3) [facility] CenterCREATINE [id number] 12:35:00 Test Item Value Reference Range Interpretation Comments CK (test code = 2217191376) 123 U/L 33-194 Lab Interpretation (test code = Normal 72934-1) [facility] CenterLIPASE2020-05-01 12:35:00 Test Item Value Reference Range Interpretation Comments LIPASE (test code = 8232277407) 141 U/L 0-220 Lab Interpretation (test code = Normal 50405-3) [facility] [id number] 12:34:00 Test Item Value Reference Range Interpretation Comments KANDICE (test code = 0901243871) 73 U/L 35-110 Lab Interpretation (test code = Normal 11129-5) [facility] CenterPROTHROMBIN TIME / [id number] 12:07:00 Test Item Value Reference Range Interpretation Comments PROTIME PATIENT (test See_Comment H [Auto mated message] code = 5964-2) The system [employer] generated this result transmitted ref erence range: 12.0 - 1 4.7 Seconds. The reference range was not used to int erpret this result as normal/abnormal . INR (test code = 6301-6) Nor mal INR <1.1; Warfarin Therap eutic range 2.0 to 3. 0 or 2.5 to 3.5, dep ending upon the indica tions. Lab Interpretation (test Abnormal code = 17395-6) [facility] CenterCORONAVIRUS COVID-19 [id number] 10:18:00 Test Item Value Reference Range Interpretation Comments SARS-CoV-2 (test code = Not Detected Not Detected 56545-3) SNOW (test code = SNOW) ID NOW COVID-19 Assay is an isothermal nucleic acid amplification test intended for the qualitative detection of nucleic acid from SARS-CoV-2 viral RNA in nasopharyngeal (STUNT DOUBLE) specimens. It is used under Emergency Use [...] indicated. Lab Interpretation Normal (test code = 76429-9) [facility] CenterRAD, CHEST, 1 VIEW, NON [id number] 07:50:00Reason for exam:->SOBShould this be performed at the bedside?->Yes FINAL REPORT CLINICAL HISTORY: SOB TECHNIQUE: 1 view of the chest. COMPARISON: None IMPRESSION: There is pulmonary vascular congestion with prominent lung markings bilaterally. Subpulmonic pleural effusions cannot be excluded. The cardiomediastinal silhouette is magnified by technique. Signed: Franky Hoyt MDReport Verified Date/Time: 10/03/2018 07:50:47 Reading Location: [facility] Radiology Reading Room [id number] 07:37:00 Test Item Value Reference Range Interpretation Comments MAGNESIUM (BEAKER) (test code = 1.6 mg/dL 1.6-2.6 627) BASIC METABOLIC [id number] 07:37:00 Test Item Value Reference Range Interpretation [...] DIALYSIS PATIEN TS. Specimen slightly ictericHEPATIC FUNCTION [id number] 07:37:00 Test Item Value Reference Range Interpretation [...] 35 U/L 6-55 347) Specimen slightly ictericPROTHROMBIN TIME/[id number] 06:25:00 Test Item Value Reference Range Interpretation [...] mechanical heart valves.CBC W/PLT COUNT & AUTO [id number] 06:16:00 Test Item Value Reference Range Interpretation [...] = 3438) Received comment: User comments: Slide comments:[id number] 05:58:00 Test Item Value Reference Range Interpretation Comments MAGNESIUM (BEAKER) (test code = 1.6 mg/dL 1.6-2.6 627) BASIC METABOLIC [id number] 05:58:00 Test Item Value Reference Range Interpretation [...] DIALYSIS PATIEN TS. Specimen slightly ictericHEPATIC FUNCTION [id number] 05:58:00 Test Item Value Reference Range Interpretation [...] 39 U/L 6-55 347) Specimen slightly ictericPROTHROMBIN TIME/[id number] 05:26:00 Test Item Value Reference Range Interpretation [...] mechanical heart valves.CBC W/PLT COUNT & AUTO [id number] 05:20:00 Test Item Value Reference Range Interpretation [...] WBC 0-0 (test code = 413) VITAMIN [id number] 06:57:00 Test Item Value Reference Range Interpretation Comments VITAMIN B12 (BEAKER) (test code = 178 pg/mL 213-816 L 774) [id number] 06:57:00 Test Item Value Reference Range Interpretation Comments FERRITIN (BEAKER) (test code = 361) 21 ng/mL 5-275 FOLATE, [id number] 06:57:00 Test Item Value Reference Range Interpretation [...] 28 % 20-55 (test code = 2590) [id number] 05:59:00 Test Item Value Reference Range Interpretation Comments MAGNESIUM (BEAKER) (test code = 1.7 mg/dL 1.6-2.6 627) BASIC METABOLIC [id number] 05:59:00 Test Item Value Reference Range Interpretation [...] FOR DIALYSIS PATIEN TS. Specimen slightly ictericLIPID [id number] 05:59:00 Test Item Value Reference Range Interpretation [...] Very High >=190 Specimen slightly ictericHEPATIC FUNCTION [id number] 05:59:00 Test Item Value Reference Range Interpretation [...] = 41 U/L 6-55 347) Specimen slightly [id number] 05:59:00 Test Item Value Reference Range Interpretation Comments LIPASE (BEAKER) (test code = 749) 35 U/L 8-78 Specimen slightly ictericPROTHROMBIN [id number] 05:58:00 Test Item Value Reference Range Interpretation [...] mechanical heart valves.CBC W/PLT COUNT & AUTO [id number] 05:37:00 Test Item Value Reference Range Interpretation [...] EOSINOPHILS ABSOLUTE COUNT 0.12 K/ L 0.04-0.36 ([facility]) (test code = 416) BASOPHILS ABSOLUTE COUNT ([facility]) 0.02 K/ L 0.01-0.08 (test code = 417) IMMATURE GRANULOCYTES-RELATIVE 0 % 0-1 PERCENT ([facility]) (test code = 2801) POCT-HEMOGLOBIN [id number] 06:12:00 Test Item Value Reference Range Interpretation Comments POC-HEMOGLOBIN METER 8.6 g/dL 12.0-15.0 L TESTED AT [facility] 6720 ([facility]) (test code = [place] [address] 1539)"
--- NOTE | 2022-12-26 15:03 | RAD REPORT ---
EXAM DESCRIPTION: CT - Abdomen Pelvis Wo Contrast - 12/26/2022 2:04 pm CLINICAL HISTORY: ABD PAIN COMPARISON: Abdomen Pelvis W Contrast dated 10/06/2022; Abdomen Pelvis W Contrast dated 09/01/2022 ; Abdomen Pelvis W Contrast dated 03/15/2022; Abdomen Pelvis Wo Contrast dated 01/15/2022 TECHNIQUE: Thin cut axial CT imaging of the abdomen and pelvis was performed without IV contrast. Mu ltiplanar reformats were generated and reviewed. All CT scans are performed using dose optimization technique as appropriate and may include automated exposure control or mA/KV adjustment according to patient size. FINDINGS: No suspicious findings in the lung bases. The liver, spleen, adrenal glands, and pancreas show no suspicious findings. Marginally calcified 3 c m ovoid structure near the hilum of the spleen, possibly representing a partially calcified aneurysm or venous varix is stable. Gallbladder was surgically removed. Symmetric renal contour, without suspicious parenchymal findings within limits of noncontrast techniq ue. No evidence of radiopaque calculi or hydroureteronephrosis. No dilated bowel loops or bowel wall thickening. No free air, free fluid or inflammatory stranding. N o hernia, mass or bulky lymphadenopathy. Sequelae of prior laparotomy and hysterectomy, stable. The u rinary bladder is without significant finding. No suspicious bony findings. IMPRESSION: No acute intra-abdominal process. Stable findings as above.
[2022-12-26 15:11] LABS: Absolute Lymphocytes (CBC) 0.7 K/uL (0.7-4.9); Hematocrit 29.7 % (36.0-45.0); Lymphocytes % 14.7 % (15.3-44.8); MCV 92.1 fL (80-100); MPV 7.4 fL (7.6-11.3); Platelets 106 thou/uL (152-406); RBC Red Blood Cell Count 3.23 M/uL (3.86-4.86)
[2022-12-26 15:19] LABS: Specific Gravity 1.015 (1.005-1.030); Urine Bacteria None Seen /HPF (<20); Urine Bilirubin NEGATIVE (Negative); Urine Blood Negative (Negative); Urine Clarity Extremely Turbid (Clear); Urine Color Light-Yellow (Yellow); Urine Glucose NEGATIVE (Negative); Urine Mucus Slight /HPF (None Seen); Urine Protein NEGATIVE (Negative); Urine Urobilinogen Normal (Normal)
[2022-12-26 15:29] LABS: Albumin 3.3 g/dL (3.4-5.0); Bilirubin Total 0.5 mg/dL (0.2-1.0); Potassium 4.5 mEq/L (3.5-5.1); Protein, Total 6.2 g/dL (6.4-8.2); Troponin High Sensitivity 4.7 pg/mL (<58.9)
[2022-12-26] MEDS ORDERED: FAMOTIDINE 20 MG/2 ML VIAL IV ONE (15:51)
[2022-12-26] MEDS ORDERED: ONDANSETRON 4 MG/2 ML VIAL ONE (15:51)
[2022-12-26] MEDS ORDERED: NA CHLORIDE 0.9% 1,000 ML ONE (15:51)
--- NOTE | 2022-12-26 16:42 | EDPHYS ---
Physician Documentation [facility] Name: Zenaida Goss Age: 62 yrs Sex: Female : 1960 Arrival Date: 12/26/2022 Time: 12:06 Bed 17 Private MD: KARI Physician Cm Elaine HPI: 12/26 17:02 This 62 yrs old Female presents to ER via Ambulatory with complaints of Sent kb By Transplant DrJason 17:02 The patient presents with abdominal pain in the epigastric area. Onset: The kb symptoms/episode began/occurred yesterday. The symptoms radiate to xiphoid area and mid-sternal area. Associated signs and symptoms: Pertinent positives: nausea. The symptoms are described as tightness. Modifying factors: The symptoms are alleviated by nothing, the symptoms are aggravated by drinking, food. Severity of pain: At its worst the pain was moderate in the emergency department the pain is unchanged. The patient has not experienced similar symptoms in the past. The patient has been recently seen by a physician:. Pt reports liver transplant at the beginning of November. States she has had pain that radiates up her chest since she was in the hospital but last night she developed pain to epigastric area as well. Spoke to transplant team and was told to come in for eval. Pt reports history of pancreatitis and wanted to make sure that wasn't the cause of pain. States pain in chest gets worse with anything she eats or drinks. Historical: - Allergies: 12:37 Demerol; ss 12:37 Dilaudid; ss 12:37 Morphine (Anaphylaxis); ss 12:37 Phenergan; sloan in IV; ss - PMHx: 12:37 Anemia; breast cancer; Cirrhosis; ESOPHAGEAL VARACIES; fatty liver; Heart Murmur; ss Pancreatitis; polyp; - PSHx: 12:37 Appendectomy; Cholecystectomy; Lumpectomy of breast; paracentesis; right knee surgery; ss right lymphectomy; Total abdominal hysterectomy; - Immunization history:: Client reports receiving the 2nd dose of the Covid vaccine. - Social history:: Smoking status: Patient denies any tobacco usage or history of. ROS: 17:02 Constitutional: Negative for fever, chills, and weight loss. kb 17:02 Cardiovascular: Positive for chest pain. 17:02 Abdomen/GI: Positive for abdominal pain, nausea. 17:02 All other systems are negative. Exam: 17:10 Constitutional: This is a well developed, well nourished patient who is awake, alert, kb and in no acute distress. Head/Face: Normocephalic, atraumatic. ENT: Moist Mucous membranes Cardiovascular: Regular rate Respiratory: Respirations even and unlabored. No increased work of breathing. Talking in full sentences Abdomen/GI: Soft, non-tender. No distention Skin: Warm, dry with normal turgor. Normal color. MS/ Extremity: Pulses equal, no cyanosis. Neurovascular intact. Full, normal range of motion. Neuro: Awake and alert, GCS 15, oriented to person, place, time, and situation. Moves all extremities. Normal gait. Vital Signs: 12:34 BP 130 / 62; Pulse 81; Resp 18; Temp 98.1(TE); Pulse Ox 100% on R/A; Weight 81.65 kg; ss Height 5 ft. 1 in. ; Pain 10/10; 13:06 BP 104 / 63; Pulse 75; Resp 17; Pulse Ox 100% on R/A; me1 16:57 BP 113 / 54; Pulse 64; Resp 17; Pulse Ox 100% on R/A; me1 12:34 Body Mass Index 34.01 (81.65 kg, 154.94 cm) ss 12:34 Pain Scale: Adult ss MDM: 13:08 Patient medically screened. kb 17:10 Differential diagnosis: cholecystitis, Cholelithiasis, gastritis, gastroesophageal kb reflux disease, non-specific abd pain, pancreatitis. Data reviewed: vital signs, nurses notes. Consideration of Admission/Observation Escalation of care including admission/observation considered. admission considered, but pain has been ongoing for over a month, trop normal. Pt will follow up with transplant team. Counseling: I had a detailed discussion with the patient and/or guardian regarding the historical points, exam findings, and any diagnostic results supporting the discharge/admit diagnosis, lab results, radiology results, the need for outpatient follow up, a family practitioner, a tour production supervisor, to return to the emergency department if symptoms worsen or persist or if there are any questions or concerns that arise at home. 12/26 13:12 Order name: CBC with Diff; Complete Time: 15:16 kb 12/26 13:12 Order name: CMP; Complete Time: 15:29 kb 12/26 13:12 Order name: Lipase; Complete Time: 15:29 kb 12/26 13:12 Order name: Urinalysis w/ reflexes; Complete Time: 15:37 kb 12/26 13:12 Order name: Troponin HS; Complete Time: 15:29 kb 12/26 15:38 Order name: Urine Culture EDMS 12/26 13:12 Order name: CT Abd/Pelvis - Without Contrast; Complete Time: 15:08 kb 12/26 13:12 Order name: EKG; Complete Time: 13:13 kb 12/26 13:12 Order name: IV Saline Lock; Complete Time: 15:32 kb 12/26 13:12 Order name: Labs collected and sent; Complete Time: 15:32 kb 12/26 13:12 Order name: EKG - Nurse/Tech; Complete Time: 15:47 kb Administered Medications: 15:46 Drug: NS 0.9% IV 1000 ml Route: IV; Rate: 1 bolus; Site: left antecubital; me1 16:34 Follow up: IV Status: IV infiltrated me1 15:46 Drug: Famotidine IVP 20 mg Route: IVP; Site: left antecubital; me1 16:34 Follow up: Response: No adverse reaction me1 15:46 Drug: Ondansetron IVP 4 mg Route: IVP; Site: left antecubital; me1 16:34 Follow up: Response: No adverse reaction me1 Disposition: 12/27 15:05 Co-signature as Attending Physician, Cm Elaine I agree with the assessment ci and plan of care. I reviewed the patient's care provided by the Advanced Practice Provider and agree with the diagnosis and treatment plan. Disposition Summary: 12/26/22 16:41 Discharge Ordered Location: Home kb Condition: Stable kb Diagnosis - Epigastric pain kb - Gastro-esophageal reflux disease without esophagitis kb Followup: kb - With: Emergency Department - When: As needed - Reason: Worsening of condition Followup: kb - With: Private Physician - When: 2 - 3 days - Reason: Recheck today's complaints, Continuance of care, Re-evaluation by your physician Discharge Instructions: - Discharge Summary Sheet kb - Abdominal Pain, Adult, [id number] kb - Gastroesophageal Reflux Disease, Adult, [id number] kb Forms: - Medication Reconciliation Form kb - Thank You Letter kb - Antibiotic Education kb - Prescription Opioid Use kb - Patient Portal Instructions kb - Leadership Thank You Letter kb Signatures: Dispatcher [employer] Valarie Arias, ZENIA-Avila KNUTSON-Inocencia Roth, RN RN Landy Espino, ERIC RN me1 Iheonunekwu, Cm Corrections: (The following items were deleted from the chart) 12/26 17:10 17:02 Pt reports liver transplant at the beginning of November. States she has had pain kb that radiates up her chest since she was in the hospital but last night she developed pain to epigastric area as well. Spoke to transplant team and was told to come in for eval. Pt reports history of pancreatitis and wanted to make sure that wasn't the cause of pain. . kb
--- NOTE | 2022-12-26 16:42 | ER ---
Nurse's Notes [facility] Name: Zenaida Goss Age: 62 yrs Sex: Female : 1960 Arrival Date: 12/26/2022 Time: 12:06 Bed 17 Private MD: Diagnosis: Epigastric pain;Gastro-esophageal reflux disease without esophagitis Presentation: 12/26 12:34 Chief complaint: Patient states: Epigastric pain that radiates towards back and chills ss that began yesterday. Pt reports she had a liver transplant 1 month ago at [facility] and called to speak with her home care coordinator who recommended she come to nearest ED for COVID test and UA. Coronavirus screen: Client denies travel out of the [place] in the last 14 days. Ebola Screen: Patient denies exposure to infectious person. Patient denies travel to an Ebola-affected area in the 21 days before illness onset. Initial Sepsis Screen: Does the patient meet any 2 criteria? No. Patient's initial sepsis screen is negative. Does the patient have a suspected source of infection? No. Patient's initial sepsis screen is negative. Risk Assessment: Do you want to hurt yourself or someone else? Patient reports no desire to harm self or others. Onset of symptoms was December 25, 2022. 12:34 Method Of Arrival: Ambulatory ss 12:34 Acuity: TANK 3 ss Historical: - Allergies: 12:37 Demerol; ss 12:37 Dilaudid; ss 12:37 Morphine (Anaphylaxis); ss 12:37 Phenergan; sloan in IV; ss - PMHx: 12:37 Anemia; breast cancer; Cirrhosis; ESOPHAGEAL VARACIES; fatty liver; Heart Murmur; ss Pancreatitis; polyp; - PSHx: 12:37 Appendectomy; Cholecystectomy; Lumpectomy of breast; paracentesis; right knee surgery; ss right lymphectomy; Total abdominal hysterectomy; - Immunization history:: Client reports receiving the 2nd dose of the Covid vaccine. - Social history:: Smoking status: Patient denies any tobacco usage or history of. Screenin:45 [facility] ED Fall Risk Assessment (Adult) History of falling in the last 3 months, me1 including since admission No falls in past 3 months (0 pts) Confusion or Disorientation No (0 pts) Intoxicated or Sedated No (0 pts) Impaired Gait No (0 pts) Mobility Assist Device Used No (0 pt) Altered Elimination No (0 pt) Score/Fall Risk Level 0 - 2 = Low Risk. Abuse screen: Denies threats or abuse. Nutritional screening: No deficits noted. Tuberculosis screening: No symptoms or risk factors identified. Assessment: 12:45 General: Appears uncomfortable, well groomed, well developed, well nourished, Behavior me1 is calm, cooperative, appropriate for age, Reports chills for epigastric pain that radiates to back and chills since yesterday. Pain: Complains of pain in epigastric area Pain radiates to back Pain currently is 5 out of 10 on a pain scale. Quality of pain is described as burning, sharp, shooting, Pain began 1 day ago. Is continuous. Neuro: Level of Consciousness is awake, alert, obeys commands, Oriented to person, place, time, situation, Appropriate for age. Cardiovascular: Capillary refill < 3 seconds Patient's skin is warm and dry. Respiratory: Airway is patent Respiratory effort is even, unlabored, Respiratory pattern is regular, symmetrical. GI: Reports indigestion. Vital Signs: 12:34 BP 130 / 62; Pulse 81; Resp 18; Temp 98.1(TE); Pulse Ox 100% on R/A; Weight 81.65 kg; ss Height 5 ft. 1 in. ; Pain 10/10; 13:06 BP 104 / 63; Pulse 75; Resp 17; Pulse Ox 100% on R/A; me1 16:57 BP 113 / 54; Pulse 64; Resp 17; Pulse Ox 100% on R/A; me1 12:34 Body Mass Index 34.01 (81.65 kg, 154.94 cm) ss 12:34 Pain Scale: Adult ss ED Course: 12:11 Patient arrived in ED. mg5 12:37 Triage completed. ss 12:37 Arm band placed on right wrist. ss 12:45 Patient has correct armband on for positive identification. Placed in gown. Bed in low me1 position. Call light in reach. Side rails up X 1. Provided Education on: POC. Verbalized understanding.. 12:45 No provider procedures requiring assistance completed. me1 13:08 Landy Espino RN is Primary Nurse. me1 13:08 Valarie Wise FNP-C is PHCP. kb 13:08 Cm Elaine is Attending Physician. kb 14:06 CT Abd/Pelvis - Without Contrast In Process Unspecified. EDMS 15:13 Troponin HS Sent. me1 15:32 Inserted saline lock: 24 gauge in left forearm, using aseptic technique. Missed ds4 attempt(s): 24 gauge in left upper arm. Bleeding controlled, band aid applied, catheter tip intact. 17:01 IV discontinued, intact, bleeding controlled, No redness/swelling at site. Pressure me1 dressing applied. Administered Medications: 15:46 Drug: NS 0.9% IV 1000 ml Route: IV; Rate: 1 bolus; Site: left antecubital; me1 16:34 Follow up: IV Status: IV infiltrated me1 15:46 Drug: Famotidine IVP 20 mg Route: IVP; Site: left antecubital; me1 16:34 Follow up: Response: No adverse reaction me1 15:46 Drug: Ondansetron IVP 4 mg Route: IVP; Site: left antecubital; me1 16:34 Follow up: Response: No adverse reaction me1 Medication: 16:57 VIS not applicable for this client. me1 Outcome: 16:41 Discharge ordered by MD. kb 17:02 Discharged to home ambulatory, with family. me1 17:02 Condition: stable 17:02 Discharge instructions given to patient, Instructed on discharge instructions, follow up and referral plans. Demonstrated understanding of instructions, follow-up care. 17:04 Patient left the ED. me1 Signatures: Dispatcher [employer] EDWV Valarie Wise, TY MOBILE PATROL OFFICER-Inocencia Roth RN RN Modesto Lopez ds4 Landy Espino RN RN me1 Marci Navarrete mg5
[2022-12-26 17:36] VITALS: TEMP 98.1; O2SAT 100
[2022-12-26 17:38] VITALS: BP 113/54
== END 2022-12-26 17:04 | disposition home or self-care (01) ==
LOC: ER 12:06
DX: K21.9 Gastro-esophageal reflux disease without esophagitis (principal); Z94.4 Liver transplant status; Z88.5 Allergy status to narcotic agent; Z88.8 Allergy status to other drugs, medicaments and biological substances
CPT/HCPCS: 96361; 93005; 87088; 85025; 81001; 87086; 36415; 84484; 83690; 80053; 74176; 96375; 96374; 99284; J2405; J7030

== ENCOUNTER → 2023-04-06 | Emergency (ER) | payer OTHER ==
[~2023-04-06] MED LIST changes: +FENTANYL CITR 100 MCG/2 ML ONE; -HYDROCODONE/APAP 10/325 TAB ONE; +NA CHLORIDE 0.9% 1,000 ML ONE; -ONDANSETRON 4 MG (ODT) TAB ONE; +ONDANSETRON 4 MG/2 ML VIAL ONE
[2023-04-06 05:57] LABS: Absolute Lymphocytes (CBC) 0.2 K/uL (0.7-4.9); Lymphocytes % 13.4 % (15.3-44.8); MCV 86.1 fL (80-100); MPV 7.1 fL (7.6-11.3); Platelets 83 thou/uL (152-406)
[2023-04-06 06:10] LABS: Specific Gravity 1.023 (1.005-1.030); Urine Bacteria None Seen /HPF (<20); Urine Bilirubin NEGATIVE (Negative); Urine Blood Negative (Negative); Urine Clarity Clear (Clear); Urine Color Light-Yellow (Yellow); Urine Glucose NEGATIVE (Negative); Urine Mucus Slight /HPF (None Seen); Urine Protein NEGATIVE (Negative); Urine RBC <5 /HPF (None Seen); Urine Urobilinogen Normal (Normal)
[2023-04-06 06:17] LABS: Albumin 3.2 g/dL (3.4-5.0); Bilirubin Total 0.4 mg/dL (0.2-1.0); Potassium 4.2 mEq/L (3.5-5.1); Protein, Total 6.5 g/dL (6.4-8.2)
[2023-04-06 07:47] LABS: Blood Morphology Comment NOT SEEN (NOT SEEN); Platelet Estimate DECR; White Blood Cell Scan OK (OK)
--- NOTE | 2023-04-06 08:03 | RAD REPORT ---
EXAM DESCRIPTION: CT - Abdomen Pelvis W Contrast - 04/06/2023 7:01 am CLINICAL HISTORY: ABD PAIN COMPARISON: Abdomen Pelvis W Contrast dated 10/06/2022; Abdomen Pelvis W Contrast dated 09/01/2022 ; Abdomen Pelvis W Contrast dated 03/15/2022; Abdomen Pelvis W Contrast dated 12/09/2021; Abdomen Pelvis Wo Contrast dated 12/26/2022 TECHNIQUE: Thin cut axial CT imaging of the abdomen and pelvis was performed following intravenous a dministration of 100 mL Isovue 300. Multiplanar reformats were generated and reviewed. All CT scans are performed using dose optimization technique as appropriate and may include automated exposure control or mA/KV adjustment according to patient size. FINDINGS: No suspicious findings in the lung bases. The liver shows postsurgical changes which may relate to partial resection, with clips near the santi hepatis. Moderately pronounced periportal edematous changes and mild loculated fluid/ edema tracking along the second part of duodenum. Adrenal glands, and pancreas show no suspicious findings. Spleen is enlarged measuring 19.5 cm in long axis. Marginally calcified splenic artery aneurysm measuring 3. 3 x 2.4 cm is stable Gallbladder was surgically removed. Symmetric renal function is seen with no hydronephrosis or suspicious renal mass. 2 mm right lower po le calculus. No dilated bowel loops or bowel wall thickening. No free air, free fluid or inflammatory stranding. N o hernia, mass or bulky lymphadenopathy. The urinary bladder is without significant finding. No suspicious bony findings. IMPRESSION: Periportal edematous changes, nonspecific and may relate to hepatitis. Nonspecific edema /non loculated fluid tracking anterior to the second part of duodenum, probably relates to the same e tiology. Right lower pole 2 mm nonobstructing calculus. Other stable findings as above.
--- NOTE | 2023-04-06 08:33 | EDPHYS ---
Physician Documentation [facility] Name: Zenaida Goss Age: 62 yrs Sex: Female : 1960 Arrival Date: 04/06/2023 Time: 04:48 Bed 2 Private MD: ED Physician Marcio Stone HPI: 04/06 04:53 This 62 yrs old Female presents to ER via Unassigned with complaints of gen sp4 complaint . 04:54 PMH - Allergies: Demerol; Dilaudid; Morphine (Anaphylaxis); Phenergan; sloan in IV sp4 PMHx: Anemia; breast cancer; Cirrhosis; ESOPHAGEAL VARACIES; fatty liver; Heart Murmur; Pancreatitis; polyp; ss PSHx: Appendectomy; Cholecystectomy; Lumpectomy of breast; paracentesis; right knee surgery; right lymphectomy; Total abdominal hysterectomy;. 07:04 Patient has history of liver transplant at [facility] 4 months ago. Patient takes sp4 mycophenolate 500 mg and tacrolimus 1.5 mg daily. Patient presents with diffuse body aches back pain and abdominal pain. Would like to be evaluated for acute emergency associated with back and abdominal pain. Patient states her charge coordinator is at [facility]. Additionally take Bactrim once a week as infection prophylaxis.. Historical: - Allergies: 06:11 Demerol; rv 06:11 Dilaudid; rv 06:11 Morphine (Anaphylaxis); rv 06:11 Phenergan; sloan in IV; rv - PMHx: 06:11 Anemia; breast cancer; Cirrhosis; ESOPHAGEAL VARACIES; fatty liver; Heart Murmur; rv Pancreatitis; polyp; - PSHx: 06:11 Appendectomy; Cholecystectomy; Lumpectomy of breast; paracentesis; right knee surgery; rv right knee surgery; right lymphectomy; Total abdominal hysterectomy; - Immunization history:: Adult Immunizations up to date. - Social history:: Smoking status: Patient denies any tobacco usage or history of. - Family history:: not pertinent. ROS: 07:08 Constitutional: Negative for fever, chills, and weight loss, noted for diffuse body sp4 aches, positive back pain positive abdominal ache. 07:08 All other systems are negative, Exam: 07:08 Constitutional: This is a well developed, well nourished patient who is awake, alert, sp4 and in no acute distress. Head/Face: Normocephalic, atraumatic. Eyes: Pupils equal round and reactive to light, extra-ocular motions intact. Lids and lashes normal. Conjunctiva and sclera are not injected. Cornea within normal limits. Periorbital areas with no swelling, redness, or edema. ENT: Nares patent. No nasal discharge, no septal abnormalities noted. Tympanic membranes are normal and external auditory canals are clear. Oropharynx with no redness, swelling, or masses, exudates, or evidence of obstruction, uvula midline. Mucous membranes moist. Neck: Trachea midline, no thyromegaly or masses palpated, and no cervical lymphadenopathy. Supple, full range of motion without nuchal rigidity, or vertebral point tenderness. Chest/axilla: Normal chest wall appearance and motion. Nontender with no deformity. No lesions are appreciated. Cardiovascular: Regular rate and rhythm with a normal S1 and S2. No gallops, murmurs, or rubs. Normal PMI, no JVD. No pulse deficits. Respiratory: Lungs have equal breath sounds bilaterally, clear to auscultation and percussion. No rales, rhonchi or wheezes noted. No increased work of breathing, no retractions or nasal flaring. Abdomen/GI: Soft, non-tender, with normal bowel sounds. No distension or tympany. No guarding or rebound. No evidence of tenderness throughout. Back: No spinal tenderness. No costovertebral tenderness. Skin: Warm, dry with normal turgor. Normal color with no rashes, no lesions, and no evidence of cellulitis. MS/ Extremity: Pulses equal, no cyanosis. Neurovascular intact. Full, normal range of motion. Neuro: Awake and alert, GCS 15, oriented to person, place, time, and situation. Cranial nerves II-XII grossly intact. Motor strength 5/5 in all extremities. Sensory grossly intact. Psych: Awake, alert, with orientation to person, place and time. Behavior, mood, and affect are within normal limits Vital Signs: 05:09 BP 123 / 103; Pulse 86; Resp 18; Temp 98.9; Pulse Ox 99% on R/A; Weight 86.18 kg; oe Height 5 ft. 4 in. ; 06:37 BP 115 / 56; Pulse 78; Resp 17; Temp 98; Pulse Ox 99% on R/A; rv 07:43 BP 116 / 68; Pulse 71; Resp 15; Pulse Ox 100% ; ko1 09:02 BP 118 / 70; Pulse 74; Resp 16; Pulse Ox 99% ; ko1 05:09 Body Mass Index 32.61 (86.18 kg, 162.56 cm) oe MDM: 04:57 Patient medically screened. sp4 07:08 Differential diagnosis: Body aches, abdominal aches. Data reviewed: vital signs, nurses sp4 notes, old medical records, lab test result(s), radiologic studies, CT scan. Transition of care: After a detail discussion of the patient's case, care is transferred to Marcio Stone MD. 08:31 Care significantly affected by the following chronic conditions: Liver Disease, Status rn post liver transplant 4 months ago. Counseling: I had a detailed discussion with the patient and/or guardian regarding the historical points, exam findings, and any diagnostic results supporting the discharge/admit diagnosis, lab results, radiology results, the need for outpatient follow up, to return to the emergency department if symptoms worsen or persist or if there are any questions or concerns that arise at home. Special discussion: Based on the patient's Hx, exam, and Dx evaluation, there is no indication for emergent surgery or inpatient Tx. It is understood by the patient/guardian that if the Sx's persist or worsen they need to return immediately for re-evaluation. I discussed with the patient/guardian in detail that at this point there is no indication for admission to the hospital. It is understood, however, that if the symptoms persist or worsen the patient needs to return immediately for re-evaluation. Based on the history and exam findings, there is no indication for further emergent testing or inpatient evaluation. Hepatology and transplant team. ED course: No acute findings and blood or CT. Radiologist feels like more postoperative changes and nonspecific findings. Patient is only 4 months status post liver transplant and compliant with medication. Normal AST and ALT. No renal failure. Patient reports 2 weeks of abdominal pain without acute changes. Stable vital signs. Urged her to follow-up with her hepatology and transplant team, states has an appointment for next week. Has already contacted her charge coordinator and they are aware. I have personally reviewed all of the results, including but not limited to blood tests and imaging deemed necessary to safely discharge this patient at this time. All results given to and printed out for patient. I personally went over all the results with the patient and answered all questions. Patient will follow-up with PCP and or specialist as discussed. Return precautions given and understood.. 04/06 04:57 Order name: CBC with Diff; Complete Time: 08:05 sp4 04/06 04:57 Order name: CMP; Complete Time: 07:00 sp4 04/06 04:57 Order name: Lipase; Complete Time: 07:00 sp4 04/06 04:57 Order name: Urinalysis w/ reflexes; Complete Time: 07:00 sp4 04/06 05:17 Order name: COVID-19 SARS RT PCR; Complete Time: 07:00 sp4 04/06 05:17 Order name: Influenza Screen (a \T\ B); Complete Time: 07:00 sp4 04/06 07:48 Order name: CBC Smear Scan; Complete Time: 08:05 EDMS 04/06 04:57 Order name: CT Abd/Pelvis - IV Contrast Only; Complete Time: 08:05 sp4 04/06 04:57 Order name: IV Saline Lock; Complete Time: 05:49 sp4 04/06 04:57 Order name: Labs collected and sent; Complete Time: 05:49 sp4 Administered Medications: 05:48 Drug: Ondansetron IVP 4 mg IVP once; over 2 minutes Route: IVP; Site: left forearm; rv 05:48 Drug: NS 0.9% IV 1000 ml IV at 1 bolus Per protocol; 1000 mL bolus Route: IV; Rate: 1 rv bolus; Site: left forearm; 05:48 Drug: fentaNYL (PF) IVP 100 mcg IVP once Route: IVP; Site: left forearm; rv Disposition Summary: 04/06/23 08:32 Discharge Ordered Notes: Location: Home rn Problem: an ongoing problem rn Symptoms: have improved rn Condition: Stable rn Diagnosis - Abdominal pain, unspecified rn Followup: rn - With: Private Physician - When: As needed - Reason: Recheck today's complaints, Re-evaluation by your physician Discharge Instructions: - Discharge Summary Sheet rn - Abdominal Pain, Adult rn - Liver Transplant, Adult, Care After rn Forms: - Medication Reconciliation Form rn - Thank You Letter rn - Antibiotic rn document improvement - Prescription Opioid Use rn - Patient Portal Instructions rn - Leadership Thank You Letter rn Signatures: Dispatcher [employer] EDMS Stone, Marcio, MD MD rn Don, Pop, RN RN rv Potepalov, Vamshi, MD MD sp4
--- NOTE | 2023-04-06 08:33 | ER ---
Nurse's Notes [facility] Name: Zenaida Goss Age: 62 yrs Sex: Female : 1960 Arrival Date: 04/06/2023 Time: 04:48 Bed 2 Private MD: Diagnosis: Abdominal pain, unspecified Presentation: 04/06 06:09 Chief complaint: Patient states: complaining of generalized pain for few days now. with rv abd pain and nausea. Coronavirus screen: Client presents with at least one sign or symptom that may indicate coronavirus-19. Standard/surgical mask placed on the client. Ebola Screen: No symptoms or risks identified at this time. Initial Sepsis Screen: Does the patient meet any 2 criteria? No. Patient's initial sepsis screen is negative. Does the patient have a suspected source of infection? No. Patient's initial sepsis screen is negative. Risk Assessment: Do you want to hurt yourself or someone else? Patient reports no desire to harm self or others. Onset of symptoms was April 06, 2023. 06:09 Method Of Arrival: Ambulatory rv 06:09 Acuity: TANK 3 rv Triage Assessment: 06:11 General: Appears comfortable, Behavior is calm, cooperative. Pain: Complains of pain in rv generalized. Neuro: Level of Consciousness is awake, alert, obeys commands, Oriented to person, place, time, situation. Cardiovascular: Capillary refill < 3 seconds Patient's skin is warm and dry. Respiratory: Airway is patent Respiratory effort is even, unlabored. GI: Abdomen is round non-distended. : No signs and/or symptoms were reported regarding the genitourinary system. Derm: Skin is intact. Historical: - Allergies: 06:11 Demerol; rv 06:11 Dilaudid; rv 06:11 Morphine (Anaphylaxis); rv 06:11 Phenergan; sloan in IV; rv - PMHx: 06:11 Anemia; breast cancer; Cirrhosis; ESOPHAGEAL VARACIES; fatty liver; Heart Murmur; rv Pancreatitis; polyp; - PSHx: 06:11 Appendectomy; Cholecystectomy; Lumpectomy of breast; paracentesis; right knee surgery; rv right knee surgery; right lymphectomy; Total abdominal hysterectomy; - Immunization history:: Adult Immunizations up to date. - Social history:: Smoking status: Patient denies any tobacco usage or history of. - Family history:: not pertinent. Screenin:49 [facility] ED Fall Risk Assessment (Adult) History of falling in the last 3 months, rv including since admission No falls in past 3 months (0 pts) Score/Fall Risk Level 0 - 2 = Low Risk Oriented to surroundings, Maintained a safe environment, Educated pt \T\ family on fall prevention, incl call for assistance when getting out of bed, Assessed \T\ reinforced patient's understanding of fall precautions. Abuse screen: Denies threats or abuse. Denies injuries from another. Nutritional screening: No deficits noted. Tuberculosis screening: No symptoms or risk factors identified. Assessment: 06:12 GI: Bowel sounds present X 4 quads. Abd is soft and non tender X 4 quads. rv Vital Signs: 05:09 BP 123 / 103; Pulse 86; Resp 18; Temp 98.9; Pulse Ox 99% on R/A; Weight 86.18 kg; oe Height 5 ft. 4 in. ; 06:37 BP 115 / 56; Pulse 78; Resp 17; Temp 98; Pulse Ox 99% on R/A; rv 07:43 BP 116 / 68; Pulse 71; Resp 15; Pulse Ox 100% ; ko1 09:02 BP 118 / 70; Pulse 74; Resp 16; Pulse Ox 99% ; ko1 05:09 Body Mass Index 32.61 (86.18 kg, 162.56 cm) oe ED Course: 04:53 Patient arrived in ED. gm2 04:53 Vamshi Galarza MD is Attending Physician. sp4 05:48 Pop Ochoa RN is Primary Nurse. rv 05:49 Inserted saline lock: 20 gauge in left forearm, using aseptic technique. Blood rv collected. 05:49 No provider procedures requiring assistance completed. rv 05:49 Patient has correct armband on for positive identification. Client placed on continuous rv cardiac and pulse oximetry monitoring. NIBP monitoring applied. senior controls technician on. 06:10 Triage completed. rv 06:11 Arm band placed on right wrist. rv 07:03 CT Abd/Pelvis - IV Contrast Only In Process Unspecified. EDMS 07:35 Attending Physician role handed off by Vamshi Galarza MD rn 07:35 Marcio Stone MD is Attending Physician. rn 09:02 IV discontinued, intact, bleeding controlled, No redness/swelling at site. Pressure ko1 dressing applied. 09:02 Provided Education on: na. yeimy Administered Medications: 05:48 Drug: Ondansetron IVP 4 mg IVP once; over 2 minutes Route: IVP; Site: left forearm; rv 05:48 Drug: NS 0.9% IV 1000 ml IV at 1 bolus Per protocol; 1000 mL bolus Route: IV; Rate: 1 rv bolus; Site: left forearm; 05:48 Drug: fentaNYL (PF) IVP 100 mcg IVP once Route: IVP; Site: left forearm; rv Medication: 05:49 VIS not applicable for this client. rv Outcome: 08:32 Discharge ordered by . veronica 09:02 Discharged to home ambulatory, yeimy 09:02 Condition: stable 09:02 Discharge instructions given to patient, Instructed on discharge instructions, follow up and referral plans. Demonstrated understanding of instructions, follow-up care, 09:03 Patient left the ED. ko1 Signatures: Dispatcher [employer] EDMS Marcio Stone MD MD rn Espinosa, Orlando oe Vicente, Ronaldo RN Gia Peterson RN RN ko1 Vamshi Galarza MD MD sp4 Kaleigh Wheeler gm2 Corrections: (The following items were deleted from the chart) 06:13 06:09 Chief complaint: Patient states: complaining of generalized pain for few days rv now. rv
[2023-04-06 11:30] VITALS: TEMP 98
[2023-04-06 11:38] VITALS: BP 118/70; O2SAT 99
== END ==
LOC: ER 04:48 → SUPCPDRO 04:48
DX: R10.9 Unspecified abdominal pain (principal); M54.9 Dorsalgia, unspecified; Z94.4 Liver transplant status; Z11.52 Encounter for screening for COVID-19; Z88.5 Allergy status to narcotic agent; Z88.8 Allergy status to other drugs, medicaments and biological substances
CPT/HCPCS: 85025; 81001; 36415; 83690; 80053; 87635; 87804 ×2; 74177; 96375; 96374; 99285; Q9967; J3010; J2405; J7030

== ENCOUNTER → 2023-05-09 | Emergency (ER) | payer OTHER ==
[~2023-05-09] MED LIST changes: -NA CHLORIDE 0.9% 1,000 ML ONE
[2023-05-09 14:48] LABS: Absolute Lymphocytes (CBC) 0.3 K/uL (0.7-4.9); Hematocrit 32.5 % (36.0-45.0); Lymphocytes % 13.9 % (15.3-44.8); MCV 86.1 fL (80-100); MPV 7.2 fL (7.6-11.3); Platelets 106 thou/uL (152-406); RBC Red Blood Cell Count 3.77 M/uL (3.86-4.86)
[2023-05-09 15:09] LABS: Albumin 3.5 g/dL (3.4-5.0); Bilirubin Total 0.6 mg/dL (0.2-1.0); Protein, Total 6.9 g/dL (6.4-8.2)
[2023-05-09 15:29] LABS: Specific Gravity 1.027 (1.005-1.030); Urine Bacteria <20 /HPF (<20); Urine Bilirubin NEGATIVE (Negative); Urine Blood Negative (Negative); Urine Clarity Turbid (Clear); Urine Color Yellow (Yellow); Urine Glucose NEGATIVE (Negative); Urine Mucus Slight /HPF (None Seen); Urine Protein NEGATIVE (Negative); Urine RBC <5 /HPF (None Seen); Urine Urobilinogen Normal (Normal); Urine pH 5.5 (5.0-7.0)
--- NOTE | 2023-05-09 16:03 | RAD REPORT ---
EXAM DESCRIPTION: CT - Abdomen Pelvis W Contrast - 05/09/2023 3:25 pm CLINICAL HISTORY: EPigastric pain, liver transplant 5 mo ago COMPARISON: Abdomen Pelvis W Contrast dated 04/06/2023; Abdomen Pelvis W Contrast dated 3; Abdomen Pelvis W Contrast dated 09/01/2022; Abdomen Pelvis W Contrast dated 03/15/2022 TECHNIQUE: Thin cut axial CT imaging of the abdomen and pelvis was performed following intravenous a dministration of 100 mL Isovue 300. Multiplanar reformats were generated and reviewed. All CT scans are performed using dose optimization technique as appropriate and may include automated exposure control or mA/KV adjustment according to patient size. FINDINGS: No suspicious findings in the lung bases. The liver again shows mild periportal edematous changes, stable to mildly improved since the prior ex am. Edematous changes of the santi hepatis of partially improved as well. Postsurgical clips in the r egion of hepatic hilum are again seen, compatible with provided history of liver transplant. Spleen i s enlarged, measuring 18 cm in long axis. Stable marginally calcified 3.3 cm enhancing vascular struc ture with which may relate to a splenic artery aneurysm or a varix. Adrenal glands, and pancreas show no suspicious findings. Status post cholecystectomy. Symmetric renal function is seen with no hydronephrosis or suspicious renal mass. 2 mm nonobstructing right lower pole calculus. Stable right interpolar 1 cm cortical cyst. No dilated bowel loops or bowel wall thickening. No free air, free fluid or inflammatory stranding. N o hernia, mass or bulky lymphadenopathy. The urinary bladder is suboptimally distended limiting evalu ation. Prominence of the right aspect of the vaginal cuff again seen, nonspecific, and may relate to a small seroma or adnexal cyst. No suspicious bony findings. IMPRESSION: Nonobstructing right lower pole 2 mm calculus. No acute intra-abdominal process. Improving edematous changes at the santi hepatis, and other stable findings as above.
--- NOTE | 2023-05-09 16:48 | ER ---
Nurse's Notes [facility] Name: Zenaida Goss Age: 63 yrs Sex: Female : 1960 Arrival Date: 05/09/2023 Time: 13:42 Bed 8 Private MD: Diagnosis: Abdominal pain, unspecified;5 months s/p liver transplant;Anemia, unspecified Presentation: 05/09 14:11 Chief complaint: Patient states: Epigastric pain that radiates to back onset 1 week cm10 ago. Pt states that her PCP sent her to the ED to get checked. Pt reports that eating makes the pain worse, tylenol not helping pain. Pt reports having liver transplant 5 months ago at [facility]. Pt states that she recently had her anti-rejection medications increased due to possible rejection of liver. Pt reports nausea, denies fever and diarrhea. Coronavirus screen: Vaccine status: Patient reports receiving the 2nd dose of the covid vaccine. Client denies travel out of the [place] in the last 14 days. Ebola Screen: Patient denies travel to an Ebola-affected area in the 21 days before illness onset. No symptoms or risks identified at this time. Initial Sepsis Screen: Does the patient meet any 2 criteria? No. Patient's initial sepsis screen is negative. Does the patient have a suspected source of infection? No. Patient's initial sepsis screen is negative. Risk Assessment: Do you want to hurt yourself or someone else? Patient reports no desire to harm self or others. Onset of symptoms was May 09, 2023. 14:11 Method Of Arrival: Ambulatory cm10 14:11 Acuity: TANK 2 cm10 Historical: - Allergies: 14:14 Demerol; cm10 14:14 Dilaudid; cm10 14:14 Morphine (Anaphylaxis); cm10 14:14 Phenergan; sloan in IV; cm10 - PMHx: 14:14 Anemia; breast cancer; Cirrhosis; ESOPHAGEAL VARACIES; fatty liver; Heart Murmur; cm10 Pancreatitis; polyp; - PSHx: 14:14 Appendectomy; Cholecystectomy; Lumpectomy of breast; paracentesis; right knee surgery; cm10 right lymphectomy; Total abdominal hysterectomy; Liver Transplant; - Immunization history:: Adult Immunizations up to date. - Social history:: Smoking status: Patient denies any tobacco usage or history of. Assessment: 15:18 Reassessment: No changes from previously documented assessment. Patient and/or family ll1 updated on plan of care and expected duration. Pain level reassessed. Patient is alert, oriented x 3, equal unlabored respirations, skin warm/dry/pink. 16:55 Reassessment: No changes from previously documented assessment. Patient and/or family ll1 updated on plan of care and expected duration. Pain level reassessed. Vital Signs: 14:11 BP 132 / 76; Pulse 85; Resp 16; Temp 97.3(IR); Pulse Ox 100% on R/A; Weight 88.45 kg; cm10 Height 5 ft. 4 in. ; Pain 9/10; 16:55 BP 131 / 71; Pulse 81; Resp 16; Pulse Ox 100% ; ll1 14:11 Body Mass Index 33.47 (88.45 kg, 162.56 cm) cm10 14:11 Pain Scale: Adult cm10 ED Course: 13:47 Patient arrived in ED. mg5 13:57 Grant Baldwin DO is Attending Physician. ms3 14:14 Triage completed. cm10 14:15 Arm band placed on Patient placed in an exam room, on a stretcher. cm10 14:38 Lashae Long, RN is Primary Nurse. ll1 14:39 Inserted saline lock: 22 gauge in left forearm, using aseptic technique. Blood ll1 collected. 15:18 Urinalysis w/ reflexes Sent. ll1 15:27 CT Abd/Pelvis - IV Contrast Only In Process Unspecified. EDMS 16:55 No provider procedures requiring assistance completed. IV discontinued, intact, ll1 bleeding controlled, No redness/swelling at site. Pressure dressing applied. Administered Medications: 15:17 Drug: fentaNYL (PF) IVP 50 mcg IVP once Route: IVP; Site: left forearm; ll1 16:56 Follow up: Response: No adverse reaction; Pain is decreased; RASS: Alert and Calm (0) ll1 15:18 Drug: Ondansetron IVP 4 mg IVP once; over 2 minutes Route: IVP; Site: left forearm; ll1 16:55 Follow up: Response: No adverse reaction ll1 Outcome: 16:47 Discharge ordered by . ms3 16:56 Patient left the ED. ll1 Signatures: Dispatcher [employer] EDMS Lashae Long, RN RN ll1 Grant Baldwin, DO HAILE ms3 Lauren Abbasi RN RN cm10 Marci Navarrete 5
--- NOTE | 2023-05-09 16:48 | EDPHYS ---
Physician Documentation [facility] Name: Zenaida Goss Age: 63 yrs Sex: Female : 1960 Arrival Date: 05/09/2023 Time: 13:42 Bed 8 Private MD: ED Physician Grant Baldwin HPI: 05/09 15:16 This 63 yrs old Female presents to ER via Ambulatory with complaints of ms3 Abdominal Pain. 15:16 63-year-old female with past medical history of anemia, breast cancer, liver cirrhosis, ms3 esophageal varices, fatty liver status post liver transplant 5 months ago at [facility] presents emergency department for epigastric abdominal pain. Patient states her discomfort is a 9/10. Patient denies any alleviating or inciting factors.. Historical: - Allergies: 14:14 Demerol; cm10 14:14 Dilaudid; cm10 14:14 Morphine (Anaphylaxis); cm10 14:14 Phenergan; sloan in IV; cm10 - PMHx: 14:14 Anemia; breast cancer; Cirrhosis; ESOPHAGEAL VARACIES; fatty liver; Heart Murmur; cm10 Pancreatitis; polyp; - PSHx: 14:14 Appendectomy; Cholecystectomy; Lumpectomy of breast; paracentesis; right knee surgery; cm10 right lymphectomy; Total abdominal hysterectomy; Liver Transplant; - Immunization history:: Adult Immunizations up to date. - Social history:: Smoking status: Patient denies any tobacco usage or history of. ROS: 15:16 Constitutional: Negative for fever, and chills. Neck: Negative for injury, pain, and ms3 swelling, Cardiovascular: Negative for chest pain, and palpitations. Respiratory: Negative for shortness of breath, cough, wheezing, and pleuritic chest pain, 15:16 MS/Extremity: Negative for injury and deformity, 15:16 Abdomen/GI: Positive for abdominal pain, Exam: 15:16 Constitutional: This is a well developed, well nourished patient who is awake, alert, ms3 and in no acute distress. Head/Face: Normocephalic, atraumatic. Chest/axilla: Normal chest wall appearance and motion. Nontender with no deformity. Cardiovascular: Regular rate and rhythm with a normal S1 and S2. No gallops, murmurs, or rubs. Normal PMI, no JVD. No pulse deficits. Respiratory: Lungs have equal breath sounds bilaterally, clear to auscultation and percussion. No rales, rhonchi or wheezes noted. No increased work of breathing, no retractions or nasal flaring. 15:16 Abdomen/GI: Inspection: abdomen appears normal, Bowel sounds: normal, Palpation: moderate abdominal tenderness, in the epigastric area and right upper quadrant, Vital Signs: 14:11 BP 132 / 76; Pulse 85; Resp 16; Temp 97.3(IR); Pulse Ox 100% on R/A; Weight 88.45 kg; cm10 Height 5 ft. 4 in. ; Pain 9/10; 16:55 BP 131 / 71; Pulse 81; Resp 16; Pulse Ox 100% ; ll1 14:11 Body Mass Index 33.47 (88.45 kg, 162.56 cm) cm10 14:11 Pain Scale: Adult cm10 MDM: 14:18 Patient medically screened. ms3 15:16 Differential diagnosis: non-specific abd pain, pancreatitis, Liver rejection. ms3 16:47 Data reviewed: vital signs, nurses notes, and as a result, I will discharge patient. I ms3 considered the following discharge prescriptions or medication management in the emergency department Medications were administered in the Emergency Department. See MAR. Care significantly affected by the following chronic conditions: Liver transplant. Counseling: I had a detailed discussion with the patient and/or guardian regarding the historical points, exam findings, and any diagnostic results supporting the discharge/admit diagnosis, lab results, radiology results, the need for outpatient follow up, hepatology, to return to the emergency department if symptoms worsen or persist or if there are any questions or concerns that arise at home. Special discussion: I discussed with the patient/guardian in detail that at this point there is no indication for admission to the hospital. It is understood, however, that if the symptoms persist or worsen the patient needs to return immediately for re-evaluation. ED course: Discussed labs and CT findings with patient. Patient to follow-up with [facility]. Patient understands and agrees with plan. All questions were answered. Return precautions discussed include worsening symptoms, or any other concerns. On reevaluation patient symptoms improved, patient is alert and oriented x 4, no apparent distress, nontoxic-appearing, ambulatory in emergency department, speaking full sentences. 05/09 14:19 Order name: CBC with Diff; Complete Time: 15:17 ms3 05/09 14:19 Order name: CMP; Complete Time: 15:17 ms3 05/09 14:19 Order name: Lipase; Complete Time: 15:17 ms3 05/09 14:19 Order name: Urinalysis w/ reflexes; Complete Time: 16:41 ms3 05/09 15:33 Order name: Urine Culture EDMS 05/09 14:19 Order name: CT Abd/Pelvis - IV Contrast Only; Complete Time: 16:41 ms3 05/09 14:19 Order name: IV Saline Lock; Complete Time: 14:39 ms3 05/09 14:19 Order name: Labs collected and sent; Complete Time: 14:38 ms3 Administered Medications: 15:17 Drug: fentaNYL (PF) IVP 50 mcg IVP once Route: IVP; Site: left forearm; ll1 16:56 Follow up: Response: No adverse reaction; Pain is decreased; RASS: Alert and Calm (0) ll1 15:18 Drug: Ondansetron IVP 4 mg IVP once; over 2 minutes Route: IVP; Site: left forearm; ll1 16:55 Follow up: Response: No adverse reaction ll1 Disposition Summary: 05/09/23 16:47 Discharge Ordered Notes: Location: Home ms3 Condition: Stable ms3 Diagnosis - Abdominal pain, unspecified ms3 - 5 months s/p liver transplant ms3 - Anemia, unspecified ms3 Followup: ms3 - With: Private Physician - When: 2 - 3 days - Reason: Recheck today's complaints Discharge Instructions: - Discharge Summary Sheet ms3 - Abdominal Pain, Adult ms3 Forms: - Medication Reconciliation Form ms3 - Thank You Letter ms3 - Antibiotic Education ms3 - Prescription Opioid Use ms3 - Patient Portal Instructions ms3 - Leadership Thank You Letter ms3 Signatures: Dispatcher [employer] EDLashae Mcbride, RN RN ll1 Grant Baldwin DO DO ms3 Lauren Abbasi, RN RN cm10
[2023-05-09 18:25] VITALS: BP 131/71; TEMP 97.3; O2SAT 100
== END ==
LOC: ER 13:42
DX: R10.13 Epigastric pain (principal); Z94.4 Liver transplant status; D64.9 Anemia, unspecified; Z88.5 Allergy status to narcotic agent; Z88.8 Allergy status to other drugs, medicaments and biological substances
CPT/HCPCS: 87088; 85025; 81001; 87086; 36415; 83690; 80053; 74177; Q9967; J3010; J2405

== ENCOUNTER 2023-08-09 05:19 | Emergency (ER) | payer OTHER ==
[2023-08-09 06:19] LABS: Absolute Basophils 0.3 K/uL (0-0.5); Absolute Lymphocytes (CBC) 0.9 K/uL (0.7-4.9); Absolute Monocytes 0.8 K/uL (0.1-1.3); Absolute Neutrophil 1.7 K/uL (1.8-8.0); Basophils % 7.9 % (0-1.3); Hematocrit 30.3 % (36.0-45.0); Hemoglobin 10.3 g/dL (12.0-15.0); Lymphocytes % 23.3 % (15.3-44.8); MCH 30.8 pg (27.0-35.0); MCHC 33.9 g/dL (32.0-36.0); MCV 90.9 fL (80-100); Monocytes % 21.1 % (3.3-12.3); Neutrophils % 46.7 % (41.7-73.7); Nucleated Red Blood Cells % 0.1 % (0-0); Platelets 113 thou/uL (152-406); RBC Red Blood Cell Count 3.33 M/uL (3.86-4.86); Red Cell Distribution Width 14.5 % (12.1-15.2)
[2023-08-09] MEDS ORDERED: ONDANSETRON 4 MG (ODT) TAB ONE (06:20)
[2023-08-09] MEDS ORDERED: HYDROCODONE/APAP 10/325 TAB ONE (06:20)
[2023-08-09 06:42] LABS: Specific Gravity 1.021 (1.005-1.030); Sqamous Epithelial <5 /HPF (None Seen); Urine Bacteria None Seen /HPF (<20); Urine Bilirubin NEGATIVE (Negative); Urine Blood Trace (Negative); Urine Clarity Clear (Clear); Urine Color Light-Yellow (Yellow); Urine Culture Reflex Order REFLEXED; Urine Glucose NEGATIVE (Negative); Urine Ketones NEGATIVE (Negative); Urine Microscopic Reflex YN ORDER UMIC; Urine Mucus Slight /HPF (None Seen); Urine Nitrite NEGATIVE (Negative); Urine Protein NEGATIVE (Negative); Urine Urobilinogen Normal (Normal)
[2023-08-09 06:42] LABS: Albumin 3.5 g/dL (3.4-5.0); Albumin/Globulin Ratio 1.1 (1.1-1.8); Bilirubin Total 0.6 mg/dL (0.2-1.0); Globulin 3.1 g/dL (2.3-3.5); Protein, Total 6.6 g/dL (6.4-8.2)
[2023-08-09 07:14] LABS: Differential Total Cells Count 100; Eosinophils 1 % (0-3); Lymphocytes 36 % (15-42); Monocytes 11 % (0-10); Nucleated Red Blood Cells 1 /100WBC; Segmented Neutrophils 52 % (40-80)
[2023-08-09 07:16] LABS: Anisocytosis 2+; Blood Morphology Comment NOTED (NOT SEEN); Hypochromasia 2+; Platelet Estimate DECR
--- NOTE | 2023-08-09 07:57 | RAD REPORT ---
EXAM DESCRIPTION: CT - Abdomen Pelvis Wo Contrast - 08/09/2023 7:02 am CLINICAL HISTORY: Abdominal pain COMPARISON: April 2023 TECHNIQUE: Computed axial tomography of the abdomen and pelvis was obtained. IV and oral contrast we re not requested. All CT scans are performed using dose optimization technique as appropriate and may include automated exposure control or mA/KV adjustment according to patient size. FINDINGS: The evaluation of solid organs, vessels and bowel is limited secondary to the lack of con trast administration. Postsurgical changes of a liver transplant. The spleen mildly to moderately enlarged. The biliary tree does not appear significantly dilated. 3.3 centimeter perforated calcified splenic arterial aneurysm unchanged. Pancreas, adrenals and left kidney grossly normal. Tiny nonobstructing right renal calculus. No evidence of diverticulitis. Hysterectomy. No adnexal mass. Trace amount of free fluid within the pelvis IMPRESSION: No acute abnormality is displayed.
--- NOTE | 2023-08-09 08:24 | EDPHYS ---
Physician Documentation [facility] Name: Zenaida Goss Age: 63 yrs Sex: Female : 1960 Arrival Date: 08/09/2023 Time: 05:19 Bed 8 Private MD: ED Physician Vamshi Galarza HPI: 08/08 05:29 This 63 yrs old Female presents to ER via Unassigned with complaints of Pain sp4 With Urination, Low Back Pain. 20:34 61-year-old female presents with right abdominal pain, lower back pain, also some sp4 nausea. There is pain with urination as well. Patient has history of liver cirrhosis and liver transplant and she is on the antirejection regimen. . Historical: - Allergies: 05:38 Demerol; lg3 05:38 Dilaudid; lg3 05:38 Morphine (Anaphylaxis); lg3 05:38 Phenergan; sloan in IV; lg3 - Home Meds: 05:38 Unable to obtain [Active]; lg3 - PMHx: 05:38 Anemia; breast cancer; Cirrhosis; ESOPHAGEAL VARACIES; fatty liver; Heart Murmur; lg3 Pancreatitis; polyp; - PSHx: 05:38 Appendectomy; Cholecystectomy; liver transplant; Lumpectomy of breast; paracentesis; lg3 right knee surgery; right lymphectomy; Total abdominal hysterectomy; - Immunization history:: Adult Immunizations up to date, Client reports receiving the 2nd dose of the Covid vaccine, Flu vaccine is up to date. - Infectious Disease History:: Denies. - Social history:: Smoking status: Patient denies any tobacco usage or history of. Patient/guardian denies using alcohol, street drugs. - Family history:: not pertinent. ROS: 20:34 Constitutional: Negative for fever, chills, and weight loss, positive back pain, right sp4 abdominal pain and pain with urination 20:34 All other systems are negative, Exam: 20:34 Constitutional: This is a well developed, well nourished patient who is awake, alert, sp4 and in no acute distress. Head/Face: Normocephalic, atraumatic. Eyes: Pupils equal round and reactive to light, extra-ocular motions intact. Lids and lashes normal. Conjunctiva and sclera are not injected. Cornea within normal limits. Periorbital areas with no swelling, redness, or edema. ENT: Nares patent. No nasal discharge, no septal abnormalities noted. Tympanic membranes are normal and external auditory canals are clear. Oropharynx with no redness, swelling, or masses, exudates, or evidence of obstruction, uvula midline. Mucous membranes moist. Neck: Trachea midline, no thyromegaly or masses palpated, and no cervical lymphadenopathy. Supple, full range of motion without nuchal rigidity, or vertebral point tenderness. Chest/axilla: Normal chest wall appearance and motion. Nontender with no deformity. No lesions are appreciated. Cardiovascular: Regular rate and rhythm with a normal S1 and S2. No gallops, murmurs, or rubs. Normal PMI, no JVD. No pulse deficits. Respiratory: Lungs have equal breath sounds bilaterally, clear to auscultation and percussion. No rales, rhonchi or wheezes noted. No increased work of breathing, no retractions or nasal flaring. Abdomen/GI: Soft, with normal bowel sounds. No distension or tympany. No guarding or rebound. No evidence of tenderness throughout. Back: No spinal tenderness. No costovertebral tenderness. Skin: Warm, dry with normal turgor. Normal color with no rashes, no lesions, and no evidence of cellulitis. MS/ Extremity: Pulses equal, no cyanosis. Neurovascular intact. Full, normal range of motion. Neuro: Awake and alert, GCS 15, oriented to person, place, time, and situation. Cranial nerves II-XII grossly intact. Motor strength 5/5 in all extremities. Sensory grossly intact. Psych: Awake, alert, with orientation to person, place and time. Behavior, mood, and affect are within normal limits Vital Signs: 05:37 BP 110 / 71; Pulse 68; Resp 17 S; Temp 98.6(O); Pulse Ox 100% on R/A; Weight 89.36 kg lg3 (R); Height 5 ft. 1 in. (R); 06:50 BP 96 / 50; Pulse 65; Resp 15 S; Pulse Ox 100% on R/A; ha1 08:41 BP 102 / 61; Pulse 61; Resp 17; Temp 98.7; Pulse Ox 100% ; ap3 05:37 Body Mass Index 37.22 (89.36 kg, 154.94 cm) lg3 Dulzura Coma Score: 20:34 Eye Response: spontaneous(4). Motor Response: obeys commands(6). Verbal Response: sp4 oriented(5). Total: 15. MDM: 05:35 Patient medically screened. sp4 20:36 Differential diagnosis: arthritis, strain, sciatica, contusion. Data reviewed: vital sp4 signs, nurses notes. Consideration of Admission/Observation Escalation of care including admission/observation considered. ED course: CT today is normal. UA reveals possibly mild UTI. Patient will be discharged home on cephalexin.. 08/08 05:29 Order name: CBC with Diff; Complete Time: 08:12 sp4 08/08 05:29 Order name: CMP; Complete Time: 08:12 sp4 08/08 05:29 Order name: Lipase; Complete Time: 08:12 sp4 08/08 05:29 Order name: Urinalysis w/ reflexes; Complete Time: 08:12 sp4 08/08 06:59 Order name: Urine Culture EDMS 08/08 07:10 Order name: Manual Differential; Complete Time: 08:12 EDMS 08/08 06:13 Order name: CT Abd/Pelvis - Without Contrast; Complete Time: 08:12 sp4 08/08 05:29 Order name: IV Saline Lock; Complete Time: 06:17 sp4 08/08 05:29 Order name: Labs collected and sent; Complete Time: 06:17 sp4 Administered Medications: 06:32 Drug: [place] PO 10 mg-325 mg 1 tabs PO once Route: PO; jw7 06:50 Follow up: Response: No adverse reaction; Marked relief of symptoms; Pain is decreased ha1 06:32 Drug: Ondansetron PO 4 mg PO once Route: PO; jw7 06:50 Follow up: Response: No adverse reaction; Marked relief of symptoms ha1 Disposition Summary: 08/09/23 08:24 Discharge Ordered Notes: Location: Home sp4 Problem: new sp4 Symptoms: have improved sp4 Condition: Stable sp4 Diagnosis - UTI/ Urinary tract infection, site not specified sp4 Followup: sp4 - With: Private Physician - When: 7 - 10 days - Reason: Recheck today's complaints Discharge Instructions: - Discharge Summary Sheet sp4 - Urinary Tract Infection, Adult, [id number] sp4 Forms: - Patient Portal Instructions sp4 Prescriptions: - Cephalexin 500 mg Oral Capsule - take 1 capsule ORAL route every 12 hours for 10 days; 20 capsule; Refills: 0, sp4 Product Selection Permitted - Tramadol 50 mg Oral tablet - take 1 tablet ORAL route every 8 hours as needed; 20 tablet; Refills: 0, sp4 Product Selection Permitted Signatures: Dispatcher [employer] EDMS Loyda Kahn RN RN lg3 Cat Vallejo RN RN jw7 Vamshi Galarza MD MD sp4 Ingrid Voss RN ha1 Corrections: (The following items were deleted from the chart) 06:13 06:13 Abdomen Pelvis Wo Con+CT.RAD.BRZ ordered. EDMS EDMS 07:10 06:30 CBC Smear Scan ordered. EDMS EDMS
--- NOTE | 2023-08-09 08:24 | ER ---
Nurse's Notes [facility] Name: Zenaida Goss Age: 63 yrs Sex: Female : 1960 Arrival Date: 08/09/2023 Time: 05:19 Bed 8 Private MD: Diagnosis: UTI/ Urinary tract infection, site not specified Presentation: 08/08 05:37 Chief complaint: Patient states: right flank radiating to right lower abdomen with lg3 diarrhea. i think i have a UTI or kidney infection. Coronavirus screen: Client denies travel out of the [place] in the last 14 days. At this time, the client does not indicate any symptoms associated with coronavirus-19. Ebola Screen: No symptoms or risks identified at this time. Initial Sepsis Screen: Does the patient meet any 2 criteria? No. Patient's initial sepsis screen is negative. Does the patient have a suspected source of infection? No. Patient's initial sepsis screen is negative. Risk Assessment: Do you want to hurt yourself or someone else? Patient reports no desire to harm self or others. Onset of symptoms was August 07, 2023. 05:37 Method Of Arrival: Ambulatory lg3 05:37 Acuity: TANK 3 lg3 Triage Assessment: 05:38 General: Appears in no apparent distress. uncomfortable, Behavior is calm, cooperative. lg3 Pain: Complains of pain in right flank Pain radiates to right upper quadrant and right lower quadrant. EENT: No deficits noted. No signs and/or symptoms were reported regarding the EENT system. Neuro: No deficits noted. Mahajan Agitation-Sedation Scale (RASS): 0 - Alert and Calm Level of Consciousness is awake, alert, obeys commands, confused, Oriented to person, place, time, situation. Cardiovascular: No deficits noted. Denies chest pain, shortness of breath, Capillary refill < 3 seconds Clubbing of nail beds is absent JVD is absent Patient's skin is warm and dry. Respiratory: No deficits noted. Airway is patent Respiratory effort is even, unlabored, Respiratory pattern is regular, symmetrical, Breath sounds are clear bilaterally. GI: No deficits noted. Abdomen is round non-distended, noted to have ascites, Reports lower abdominal pain, upper abdominal pain, cramping. : Reports incontinence, inability to void, urgency, urinary frequency. Derm: No deficits noted. No signs and/or symptoms reported regarding the dermatologic system. Skin is intact, is healthy with good turgor, Skin is dry, Skin is normal, Skin temperature is warm. Musculoskeletal: No deficits noted. No signs and/or symptoms reported regarding the musculoskeletal system. Circulation, motion, and sensation intact. Range of motion: intact in all extremities. Historical: - Allergies: 05:38 Demerol; lg3 05:38 Dilaudid; lg3 05:38 Morphine (Anaphylaxis); lg3 05:38 Phenergan; sloan in IV; lg3 - Home Meds: 05:38 Unable to obtain [Active]; lg3 - PMHx: 05:38 Anemia; breast cancer; Cirrhosis; ESOPHAGEAL VARACIES; fatty liver; Heart Murmur; lg3 Pancreatitis; polyp; - PSHx: 05:38 Appendectomy; Cholecystectomy; liver transplant; Lumpectomy of breast; paracentesis; lg3 right knee surgery; right lymphectomy; Total abdominal hysterectomy; - Immunization history:: Adult Immunizations up to date, Client reports receiving the 2nd dose of the Covid vaccine, Flu vaccine is up to date. - Infectious Disease History:: Denies. - Social history:: Smoking status: Patient denies any tobacco usage or history of. Patient/guardian denies using alcohol, street drugs. - Family history:: not pertinent. Screenin:47 [facility] ED Fall Risk Assessment (Adult) History of falling in the last 3 months, lg3 including since admission No falls in past 3 months (0 pts) Confusion or Disorientation No (0 pts) Intoxicated or Sedated No (0 pts) Impaired Gait No (0 pts) Mobility Assist Device Used No (0 pt) Altered Elimination No (0 pt) Score/Fall Risk Level 0 - 2 = Low Risk Oriented to surroundings, Maintained a safe environment, Educated pt \T\ family on fall prevention, incl call for assistance when getting out of bed, Assessed \T\ reinforced patient's understanding of fall precautions. Abuse screen: Denies threats or abuse. Denies injuries from another. Nutritional screening: No deficits noted. Tuberculosis screening: No symptoms or risk factors identified. Assessment: 05:47 General: see triage assessment. lg3 06:49 Reassessment: Patient and/or family updated on plan of care and expected duration. Pain ha1 level reassessed. Patient is alert, oriented x 3, equal unlabored respirations, skin warm/dry/pink. 07:33 Reassessment: Patient and/or family updated on plan of care and expected duration. Pain ap3 level reassessed. Patient is alert, oriented x 3, equal unlabored respirations, skin warm/dry/pink. General: Appears in no apparent distress. Behavior is calm, cooperative, appropriate for age. Neuro: Level of Consciousness is awake, alert, obeys commands, Oriented to person, place, time, situation. Cardiovascular: Patient's skin is warm and dry. Respiratory: Airway is patent Respiratory effort is even, unlabored, Respiratory pattern is regular, symmetrical. 08:41 Reassessment: No changes from previously documented assessment. Patient and/or family ap3 updated on plan of care and expected duration. Pain level reassessed. Patient is alert, oriented x 3, equal unlabored respirations, skin warm/dry/pink. Vital Signs: 05:37 BP 110 / 71; Pulse 68; Resp 17 S; Temp 98.6(O); Pulse Ox 100% on R/A; Weight 89.36 kg lg3 (R); Height 5 ft. 1 in. (R); 06:50 BP 96 / 50; Pulse 65; Resp 15 S; Pulse Ox 100% on R/A; ha1 08:41 BP 102 / 61; Pulse 61; Resp 17; Temp 98.7; Pulse Ox 100% ; ap3 05:37 Body Mass Index 37.22 (89.36 kg, 154.94 cm) lg3 Michelle Coma Score: 20:34 Eye Response: spontaneous(4). Motor Response: obeys commands(6). Verbal Response: sp4 oriented(5). Total: 15. ED Course: 05:21 Patient arrived in ED. jj6 05:29 Vamshi Galarza MD is Attending Physician. sp4 05:38 Triage completed. lg3 05:38 Arm band placed on right wrist. lg3 05:43 Loyda Kahn, ERIC is Primary Nurse. lg3 05:47 Patient has correct armband on for positive identification. lg3 06:09 Inserted saline lock: 22 gauge in left forearm, using aseptic technique. Blood lg3 collected. 06:17 CBC with Diff Sent. ha1 06:17 CMP Sent. ha1 06:17 Lipase Sent. ha1 07:04 CT Abd/Pelvis - Without Contrast In Process Unspecified. EDMS 07:34 Primary Nurse role handed off by Loyda Kahn RN ap3 07:34 Rere Vera, RN is Primary Nurse. ap3 08:41 No provider procedures requiring assistance completed. IV discontinued, intact, ap3 bleeding controlled, No redness/swelling at site. Pressure dressing applied. 08:42 Provided Education on: discharge intructions. ap3 Administered Medications: 06:32 Drug: [place] PO 10 mg-325 mg 1 tabs PO once Route: PO; jw7 06:50 Follow up: Response: No adverse reaction; Marked relief of symptoms; Pain is decreased ha1 06:32 Drug: Ondansetron PO 4 mg PO once Route: PO; jw7 06:50 Follow up: Response: No adverse reaction; Marked relief of symptoms ha1 Medication: 06:57 VIS not applicable for this client. ha1 Outcome: 08:24 Discharge ordered by . sp4 08:41 Discharged to home ambulatory, ap3 08:41 Condition: good 08:41 Discharge instructions given to patient, Instructed on discharge instructions, follow up and referral plans. medication usage, Demonstrated understanding of instructions, follow-up care, medications, Prescriptions given X 2, 08:42 Patient left the ED. ap3 Signatures: Dispatcher [employer] EDRere Massey, ERIC REYES ap3 Loyda Kahn RN RN lg3 Estefania Veraj6 Cat Vallejo RN RN jw7 Ingrid Voss RN RN ha1 Vamshi Galarza MD MD sp4
[2023-08-09 09:05] VITALS: BP 102/61; TEMP 98.7; O2SAT 100
== END 2023-08-09 08:42 | disposition home or self-care (01) ==
LOC: ER 05:19
DX: N39.0 Urinary tract infection, site not specified (principal); Z94.4 Liver transplant status; Z88.5 Allergy status to narcotic agent; Z88.8 Allergy status to other drugs, medicaments and biological substances
CPT/HCPCS: 87088; 85025; 81001; 87086; 36415; 83690; 80053; 74176; 99284; Q0162

== ENCOUNTER 2023-08-24 18:00 | Emergency (ER) | payer OTHER ==
[2023-08-24 18:45] LABS: Absolute Lymphocytes (CBC) 1.1 K/uL (0.7-4.9); Absolute Monocytes 1.3 K/uL (0.1-1.3); Absolute Neutrophil 2.1 K/uL (1.8-8.0); Basophils % 17.5 % (0-1.3); Eosinophils % 0.6 % (0-4.4); Hemoglobin 11.4 g/dL (12.0-15.0); Lymphocytes % 20.6 % (15.3-44.8); MCH 30.6 pg (27.0-35.0); MCHC 33.6 g/dL (32.0-36.0); MPV 7.3 fL (7.6-11.3); Monocytes % 23.4 % (3.3-12.3); Neutrophils % 37.9 % (41.7-73.7); Nucleated Red Blood Cells % 0.3 % (0-0); Platelets 123 thou/uL (152-406); RBC Red Blood Cell Count 3.73 M/uL (3.86-4.86); Red Cell Distribution Width 14.3 % (12.1-15.2)
[2023-08-24 18:59] LABS: SARS-CoV-2 Antigen CONTROL BLUE LINE VIS/BG OK; SARS-CoV-2 Antigen Rapid Res Negative (Negative)
[2023-08-24 19:05] LABS: Albumin 3.8 g/dL (3.4-5.0); Albumin/Globulin Ratio 1.1 (1.1-1.8); Anion Gap 7.3 mEq/L (5.0-15.0); Bilirubin Total 0.5 mg/dL (0.2-1.0); Globulin 3.5 g/dL (2.3-3.5); Potassium 4.3 mEq/L (3.5-5.1); Protein, Total 7.3 g/dL (6.4-8.2)
--- NOTE | 2023-08-24 19:32 | ER ---
Nurse's Notes [facility] Name: Zenaida Goss Age: 63 yrs Sex: Female : 1960 Arrival Date: 08/24/2023 Time: 18:00 Bed 5 Private MD: Diagnosis: Acute sinusitis, unspecified Presentation: 08/23 18:13 Chief complaint: Patient states: facial pain. Coronavirus screen: At this time, the as6 client does not indicate any symptoms associated with coronavirus-19. Ebola Screen: No symptoms or risks identified at this time. Risk Assessment: Do you want to hurt yourself or someone else? Patient reports no desire to harm self or others. 18:13 Method Of Arrival: Ambulatory as6 18:13 Acuity: TANK 3 as6 18:16 Initial Sepsis Screen: Does the patient meet any 2 criteria? No. Patient's initial as6 sepsis screen is negative. Does the patient have a suspected source of infection? No. Patient's initial sepsis screen is negative. Onset of symptoms was August 24, 2023. Triage Assessment: 18:15 General: Appears in no apparent distress. uncomfortable, Behavior is cooperative, bp appropriate for age, anxious. Pain: Complains of pain in face. EENT: Reports nasal congestion. Neuro: No deficits noted. Cardiovascular: No deficits noted. Respiratory: No deficits noted. GI: No signs and/or symptoms were reported involving the gastrointestinal system. : No signs and/or symptoms were reported regarding the genitourinary system. Derm: No deficits noted. Musculoskeletal: No deficits noted. Historical: - Allergies: 18:15 Demerol; as6 18:15 Dilaudid; as6 18:15 Morphine (Anaphylaxis); as6 18:15 Phenergan; sloan in IV; as6 - PMHx: 18:15 Anemia; breast cancer; Cirrhosis; ESOPHAGEAL VARACIES; fatty liver; Heart Murmur; as6 Pancreatitis; polyp; - PSHx: 18:15 Appendectomy; Cholecystectomy; liver transplant; Lumpectomy of breast; paracentesis; as6 right knee surgery; right lymphectomy; Total abdominal hysterectomy; - Immunization history:: Adult Immunizations up to date. - Infectious Disease History:: Denies. - Social history:: Smoking status: Patient denies any tobacco usage or history of. Screenin:15 [facility] ED Fall Risk Assessment (Adult) History of falling in the last 3 months, bp including since admission No falls in past 3 months (0 pts). Abuse screen: Denies threats or abuse. Denies injuries from another. Nutritional screening: No deficits noted. Tuberculosis screening: No symptoms or risk factors identified. Assessment: 18:15 General: Appears in no apparent distress. Behavior is cooperative, appropriate for age, bp anxious. Pain: Complains of pain in face. 20:14 General: Appears in no apparent distress. uncomfortable, Behavior is cooperative, vc1 appropriate for age, anxious. Pain: Complains of pain in face Pain does not radiate. Pain currently is 6 out of 10 on a pain scale. Neuro: Level of Consciousness is awake, alert, obeys commands, Oriented to person, place, time, situation, Appropriate for age. Cardiovascular: Heart tones S1 S2 Capillary refill < 3 seconds Patient's skin is warm and dry. Respiratory: Airway is patent Respiratory effort is even, unlabored, Respiratory pattern is regular, symmetrical, Breath sounds are clear bilaterally. GI: Abdomen is round non-distended, Bowel sounds present X 4 quads. : No deficits noted. No signs and/or symptoms were reported regarding the genitourinary system. EENT: Reports "SINUS PRESSURE". Derm: Skin is intact, is healthy with good turgor, Skin is dry, Skin is normal, Skin temperature is warm. Musculoskeletal: No deficits noted. No signs and/or symptoms reported regarding the musculoskeletal system. Vital Signs: 18:16 BP 140 / 92; Pulse 81; Resp 18 S; Temp 98.4(TE); Pulse Ox 100% on R/A; Weight 90.72 kg as6 (R); Height 5 ft. 4 in. (R); Pain 10/10; 20:14 BP 138 / 88; Pulse 80; Resp 17; Pulse Ox 100% ; vc1 18:16 Body Mass Index 34.33 (90.72 kg, 162.56 cm) as6 18:16 Pain Scale: Adult as6 ED Course: 18:03 Patient arrived in ED. im 18:05 Valarie Wise FNP-C [facility] kb 18:05 Marcio Stone MD is Attending Physician. kb 18:14 Triage completed. as6 18:14 Arm band placed on left wrist. as6 18:15 Patient has correct armband on for positive identification. bp 18:15 Inserted saline lock: 22 gauge in left hand, using aseptic technique. Blood collected. bp 18:36 Zev Burrell, RN is Primary Nurse. bp 20:16 No provider procedures requiring assistance completed. IV discontinued, intact, vc1 bleeding controlled, No redness/swelling at site. Pressure dressing applied. Administered Medications: 20:13 Drug: fentaNYL (PF) IVP 25 mcg IVP once Route: IVP; Site: right hand; vc1 20:14 Follow up: Response: Medication administered at discharge. vc1 20:14 Drug: Ketorolac IVP 15 mg IVP once Route: IVP; Site: right hand; vc1 20:14 Follow up: Response: Medication administered at discharge. vc1 Medication: 18:15 VIS not applicable for this client. bp Outcome: 19:31 Discharge ordered by MD. kb 20:17 Discharged to home ambulatory, vc1 20:17 Condition: good 20:17 Discharge instructions given to patient, Instructed on discharge instructions, follow up and referral plans. Demonstrated understanding of instructions, follow-up care, 20:17 Patient left the ED. vc1 Signatures: Valarie Wise, SLATE SPLITTER-C SLATE SPLITTER-Ckb Zev Burrell, RN RN bp Geovani Silva RN RN as6 Karie Corbin RN RN vc1 Dana Mir Corrections: (The following items were deleted from the chart) 18:19 18:13 Acuity: TANK 4 as6 as6
--- NOTE | 2023-08-24 19:32 | EDPHYS ---
Physician Documentation [facility] Name: Zenaida Goss Age: 63 yrs Sex: Female : 1960 Arrival Date: 08/24/2023 Time: 18:00 Bed 5 Private MD: ED Physician Marcio Stone HPI: 08/23 18:11 This 63 yrs old Female presents to ER via Unassigned with complaints of Facial kb pain. 18:11 Pt is a 63 year old female who presents for right sided facial pain that started this kb morning. Denies fever, cough. Reports runny nose. Reports nausea secondary to pain and taking her tylenol #3. States she went to urgent care and was told she needed a full workup because she is a transplant pt. Had liver transplant 9 months ago. Reports her family member was diagnosed with a viral infection a couple of days ago. Historical: - Allergies: 18:15 Demerol; as6 18:15 Dilaudid; as6 18:15 Morphine (Anaphylaxis); as6 18:15 Phenergan; sloan in IV; as6 - PMHx: 18:15 Anemia; breast cancer; Cirrhosis; ESOPHAGEAL VARACIES; fatty liver; Heart Murmur; as6 Pancreatitis; polyp; - PSHx: 18:15 Appendectomy; Cholecystectomy; liver transplant; Lumpectomy of breast; paracentesis; as6 right knee surgery; right lymphectomy; Total abdominal hysterectomy; - Immunization history:: Adult Immunizations up to date. - Infectious Disease History:: Denies. - Social history:: Smoking status: Patient denies any tobacco usage or history of. ROS: 18:12 Constitutional: As per HPI kb Exam: 20:30 Constitutional: This is a well developed, well nourished patient who is awake, alert, kb and in no acute distress. Head/Face: Normocephalic, atraumatic. Cardiovascular: Regular rate Respiratory: Respirations even and unlabored. No increased work of breathing. Talking in full sentences Abdomen/GI: Soft, non-tender. No distention Skin: Warm, dry with normal turgor. Normal color. MS/ Extremity: Pulses equal, no cyanosis. Neurovascular intact. Full, normal range of motion. Neuro: Awake and alert, GCS 15, oriented to person, place, time, and situation. Moves all extremities. Normal gait. 20:30 Head/face: Sinus tenderness, that is moderate, is located over the right frontal sinus, right ethmoid sinus and right maxillary sinus, 20:30 ENT: TM's: fluid levels, bilaterally, Vital Signs: 18:16 BP 140 / 92; Pulse 81; Resp 18 S; Temp 98.4(TE); Pulse Ox 100% on R/A; Weight 90.72 kg as6 (R); Height 5 ft. 4 in. (R); Pain 10/10; 20:14 BP 138 / 88; Pulse 80; Resp 17; Pulse Ox 100% ; vc1 18:16 Body Mass Index 34.33 (90.72 kg, 162.56 cm) as6 18:16 Pain Scale: Adult as6 MDM: 18:05 Patient medically screened. kb 20:30 Differential diagnosis: covid, flu, uri, sinusitis, neuralgia. Data reviewed: vital kb signs, nurses notes. Counseling: I had a detailed discussion with the patient and/or guardian regarding the historical points, exam findings, and any diagnostic results supporting the discharge/admit diagnosis, lab results, the need for outpatient follow up, a family practitioner, to return to the emergency department if symptoms worsen or persist or if there are any questions or concerns that arise at home. 08/23 18:18 Order name: CBC with Diff kb 08/23 18:18 Order name: CMP; Complete Time: 19:08 kb 08/23 18:18 Order name: Flu; Complete Time: 19:01 kb 08/23 18:18 Order name: SARS-COV-2 Antigen Rapid; Complete Time: 19:01 kb 08/23 18:18 Order name: IV Start; Complete Time: 18:36 kb Administered Medications: 20:13 Drug: fentaNYL (PF) IVP 25 mcg IVP once Route: IVP; Site: right hand; vc1 20:14 Follow up: Response: Medication administered at discharge. vc1 20:14 Drug: Ketorolac IVP 15 mg IVP once Route: IVP; Site: right hand; vc1 20:14 Follow up: Response: Medication administered at discharge. vc1 Disposition Summary: 08/24/23 19:31 Discharge Ordered Notes: Location: Home kb Condition: Stable kb Diagnosis - Acute sinusitis, unspecified kb Followup: kb - With: Emergency Department - When: As needed - Reason: Worsening of condition Followup: kb - With: Private Physician - When: 2 - 3 days - Reason: Recheck today's complaints, Continuance of care, Re-evaluation by your physician Discharge Instructions: - Discharge Summary Sheet kb - Sinusitis, Adult, [id number] kb Forms: - Medication Reconciliation Form kb - Antibiotic Education kb - Prescription Opioid Use kb - Patient Portal Instructions kb - Leadership Thank You Letter kb Signatures: Dispatcher [employer] EDValarie Street, ZENIA-C ZENIA-Geovani Delatorre RN RN as6 Karie Corbin RN RN vc1 Corrections: (The following items were deleted from the chart) 20:32 18:11 Pt is a 63 year old female who presents for right sided facial pain that started kb this morning. Denies fever, cough. Reports runny nose. Reports nausea secondary to pain. . kb
[2023-08-24] MEDS ORDERED: KETOROLAC 30 MG/ML INJ ONE (19:56)
[2023-08-24] MEDS ORDERED: FENTANYL CITR 100 MCG/2 ML ONE (19:56)
[2023-08-24 20:34] VITALS: BP 138/88; TEMP 98.4; O2SAT 100
[2023-08-24 21:55] LABS: Blood Morphology Comment NOT SEEN (NOT SEEN); Platelet Estimate DECR; White Blood Cell Scan OK (OK)
== END 2023-08-24 20:17 | disposition home or self-care (01) ==
LOC: ER 18:00
DX: J01.90 Acute sinusitis, unspecified (principal); Z11.52 Encounter for screening for COVID-19; Z88.5 Allergy status to narcotic agent; Z88.8 Allergy status to other drugs, medicaments and biological substances
CPT/HCPCS: 85025; 36415; 80053; 87804 ×2; 87811; J3010